=== PATIENT | male | born 1940 | race Caucasian/White ===

== ENCOUNTER 2022-02-16 11:26 | Outpatient (CLI) | payer MEDICARE, SELFPAY ==
[2022-02-16 11:43] VITALS: BP 113/58; PULSE 63; RESP 16; O2SAT 100
[2022-02-16] MEDS: TETRACAINE 0.5% OPHTH 1 DROP EYE-RIGHT ×3 (11:45→12:43)
[2022-02-16] MEDS: BRIMONIDINE TARTRATE 0.2% OPHTH 1 DROP EYE-RIGHT ×2 (11:46→12:54)
--- NOTE | 2022-02-16 15:19 | P.PCN_ITS ---
Procedure Note Will [facility] bill your pro fee for this procedure?: Yes Procedure: SURGEON: Suni Mejia MD PREOPERATIVE DIAGNOSIS: Posterior capsular opacity, right eye POSTOPERATIVE DIAGNOSIS: Posterior capsular opacity, right eye PROCEDURE: YAG laser capsulotomy, right eye ANESTHESIA: Topical. ESTIMATED BLOOD LOSS: None PATHOLOGY SPECIMEN: None COMPLICATIONS: None INDICATIONS: See consult note for details. The risks, benefits and alternatives of the procedure were explained to the patient, who elected to proceed and signed informed consent to do so. PROCEDURE: The patient was brought to the pre-holding area where the right eye was identified as the operative eye. I placed my initials above this eye. The patient received 2 sets of 1 drop of 0.5% tetracaine and 1 drop of 1% tropicamide. They also received 1 drop of 0.2% brimonidine. They received 1 drop of 0.5% tetracaine immediately prior to bringing them back for the procedure. The patient was then brought to the procedure room where the right eye was again identified as the operative eye. A YAG Chilo capsulotomy lens was placed on the eye. The laser was administered using a total number of [] shots with an energy of 2.4 mJ per shot for a total energy of 26 mJ. The patient tolerated the procedure well. DISPOSITION: The patient was taken back to the pre-holding area and given 1 drop of 0.2% brimonidine in the right eye. They were discharged to home in stable condition. The patient was instructed to call me or go to the emergency department with any sudden change, including dramatic loss of vision, severe pain in the eye or eyebrow region, nausea, or vomiting. The patient was instructed to use the 0.2% brimonidine 1 drop 2 times a day in the right eye for 1 week. The patient will follow up in the clinic in 1-2 weeks. Eleven
== END 2022-02-16 12:55 | disposition home or self-care (01) ==
PROVIDERS: PCP Family Medicine; Visit Provider Ophthalmology
DX: H26.9 Unspecified cataract (principal)
CPT/HCPCS: 66821; A9270

== ENCOUNTER 2022-03-31 19:24 | Emergency (ER) | payer MEDICARE, OTHER, SELFPAY ==
[2022-03-31 19:29] VITALS: BP 115/66; PULSE 99; RESP 18; TEMP 36.2; O2SAT 97; BMI 25.8
--- NOTE | 2022-03-31 19:56 | ED_ITS ---
HPI - General Adult General Chief complaint: Weakness Stated complaint: Weakness Time Seen by Provider: 03/31/22 19:31 History of Present Illness HPI narrative: This 81-year-old male comes in reporting generalized weakness today. He states that he drank a couple cans of Ensure last evening and this did not sit well with him. He had a vomiting episode last night and again this morning. He states that he does not vomit easily because he has achalasia. He states that he spent most today sitting in his recliner. He reports generalized weakness but states that he is able to get up and walk around. He denies having any fever or pain. He did not have any diarrhea. He is administering dialysis to himself at home. Related Data Home Medications Medication Instructions Recorded Confirmed allopurinol 100 mg tablet mg 03/31/22 calcitriol 0.25 mcg capsule mcg 03/31/22 docusate sodium 100 mg tablet mg PO 03/31/22 metoprolol tartrate 25 mg tablet mg 03/31/22 omeprazole 20 mg capsule,delayed mg 03/31/22 release torsemide 20 mg tablet mg 03/31/22 vitamin B complex-vitamin C 100 tab 03/31/22 mg-folic acid 1 mg tablet (Dialyvite) warfarin 2 mg tablet mg 03/31/22 Allergies Allergy/AdvReac Type Severity Reaction Status Date / Time No Known Drug Allergies Allergy Verified 03/31/22 19:36 Review of Systems Status of ROS: Reports: 10 or more systems reviewed and unremarkable except as noted in History and below Narrative: Constitutional: No fevers, no weight gain or loss. Eyes: No discharge. No vision changes. HENT: No congestion, no sore throat, no ear pain. Cardiovascular: No chest pain, no palpitations. Respiratory: No shortness of breath, no wheezes, no cough. Gastrointestinal: No abdominal pain. Vomiting as described above. Genitourinary: No dysuria, no hematuria. Musculoskeletal: Normal range of motion. Skin: No rashes, no pruritis. Neurological: No dizziness, sensory change, speech change. He reports generalized weakness. Endo/Heme/Allergies: No bruising or bleeding. No polydipsia. Pysch: no suicidality, no anxiety, no insomnia. All other systems reviewed and are negative. PFSH PFSH Social History Smoking Status: Former smoker What tobacco products do you use: cigarettes Smoking quit date/years: >15 years ago Do you use any of these nicotine containing products: None Second hand tobacco smoke exposure: No How often do you have a drink containing alcohol: never How often do you have six or more drinks on one occasion: Never AUDIT-C Alcohol total score: 0 Non-prescribed substance use: denies use Exam Narrative: Exam Narrative: Constitutional: Well-developed, well-nourished, no acute distress. HEENT: Normocephalic, atraumatic. Neck: Normal range of motion. Nontender. Supple. Heart: Regular. No murmurs. Normal rate. Intact distal pulses. Lungs: Clear to auscultation. No chest discomfort. No wheezes, rhonchi, or rales. Abdomen: Normal bowel sounds. Nontender. No rebound tenderness. Genitalia: Deferred. Back: No midline tenderness. Normal range of motion. Extremities: Normal range of motion. No injury. Skin: Intact. No rash. Warm. No erythema or pallor. Neurologic: No altered sensation. No weakness. Alert and oriented. Psychiatric: No suicidality. No anxiety or depression. No insomnia. Nursing notes and vitals signs are reviewed. Const: Vital Signs, click to edit/add: Vital Signs - 24 hr 03/31/22 19:29 Temperature 97.2 F L Pulse Rate [Pulse Oximeter] 99 Respiratory Rate 18 Blood Pressure [Le ft Upper Arm] 115/66 Pulse Oximetry 97 Oxygen Delivery Me thod Room Air Course Vital Signs Vital signs: Initial Vital Signs Temperature 97.2 F L 03/31/22 19:29 Temperature Source Temporal Artery Scan 03/31/22 19:29 Pulse Rate 99 03/31/22 19:29 Pulse Rhythm 03/31/22 19:29 Respiratory Rate 18 03/31/22 19:29 Blood Pressure 115/66 03/31/22 19:29 Blood Pressure Mean 82 03/31/22 19:29 Blood Pressure Position Sitting 03/31/22 19:29 Pulse Oximetry 97 03/31/22 19:29 Oxygen Delivery Method 03/31/22 19:29 Vital Signs Temperature 97.2 F L 03/31/22 19:29 Pulse Rate 99 03/31/22 19:29 Respiratory Rate 18 03/31/22 19:29 Blood Pressure 115/66 03/31/22 19:29 Pulse Oximetry 97 03/31/22 19:29 Oxygen Delivery Method 03/31/22 19:29 Temperature 97.2 F L 03/31/22 19:29 Pulse Rate 99 03/31/22 19:29 Respiratory Rate 18 03/31/22 19:29 Blood Pressure 115/66 03/31/22 19:29 Pulse Oximetry 97 03/31/22 19:29 Oxygen Delivery Method 03/31/22 19:29 Medical Decision Making MDM Narrative Medical decision making narrative: This patient comes in with some vomiting episodes and feeling generalized weakness. An IV was established where he received a L of normal saline intravenously. Lab results returned with rather reassuring findings. His potassium is slightly low at 3.2. His creatinine is rather good at 3.6 given that he is doing home dialysis. The patient is feeling better and okay to return home to continue current plans. Lab Data Labs: Lab Results 03/31/22 03/31/22 Range/Units 20:19 20:19 WBC 11.00 (4.50-11.00) K/uL RBC 4.14 L (4.30-5.90) m/uL Hgb 13.3 L (13.5-17.5) gm/dL Hct 39.4 (37.0-53.0) % MCV 95 (80-100) fL MCH 32 (26-34) pg MCHC 34 (32-36) gm/dL RDW Coeff of Cintia 14.4 (11.5-15.5) % Plt Count 156 (140-440) K/uL Neut % (Auto) 90.7 H (42.0-72.0) % Lymph % (Auto) 3.4 L (20-44) % [place] % (Auto) 5.1 (0.0-11.0) % Eos % (Auto) 0.6 (0.0-7.0) % Baso % (Auto) 0.1 (0.0-3.0) % Neut # (Auto) 10.00 H (1.7-7.0) K/uL Lymph # (Auto) 0.40 L (0.90-2.90) K/uL [place] # (Auto) 0.60 (0.00-0.90) K/UL Eos # (Auto) 0.07 (0.00-0.50) K/uL Baso # (Auto) 0.01 (0.00-0.30) K/uL Abs Immat Gran (auto) 0.01 (0.00-0.30) K/uL Sodium 138 (135-149) mmol/L Potassium 3.2 L (3.6-5.1) mmol/L Chloride 97 (96-114) mmol/L Carbon Dioxide 32 (20-32) mmol/L BUN 109 H (7-30) mg/dL Creatinine 3.6 H (0.5-1.5) mg/dL Estimated Creat Clear 15.83 Estimated GFR 16 ml/min Glucose 188 H (60-115) mg/dL Calcium 8.5 (8.4-10.6) mg/dL Discharge Plan Discharge Clinical Impression: Dehydration Patient Disposition: Home, Self-Care Condition: Stable Additional Instructions: Resume current plans. Follow up with MD or return if worsening symptoms happen. Prescriptions: No Action torsemide 20 mg tablet Label Comments: Take 1 tablet by mouth once a day allopurinol 100 mg tablet warfarin 2 mg tablet omeprazole 20 mg capsule,delayed release(DR/EC) calcitriol 0.25 mcg capsule Label Comments: TAKE 1 CAPSULE BY MOUTH THREE DAYS (TIMES) A WEEK docusate sodium 100 mg tablet PO Label Comments: Take 1 tablet by mouth twice a day as needed - for constipation metoprolol tartrate 25 mg tablet Dialyvite 100-1 mg tablet Label Comments: TAKE 1 TABLET BY MOUTH DAILY WITH DINNER Follow Up/Referrals: Kush Doran MD [Primary Care Provider] - Stand Alone Forms: [employer] Info Instructions
[2022-03-31] MEDS: 0.9 % SODIUM CHLORIDE 1000 ml 1,000 ML IV (20:00)
[2022-03-31 20:26] LABS: Basophils Absolute Auto 0.01 K/uL (0.00-0.30); Basophils Percent Auto 0.1 % (0.0-3.0); Eosinophils Absolute Auto 0.07 K/uL (0.00-0.50); Eosinophils Percent Auto 0.6 % (0.0-7.0); Hematocrit 39.4 % (37.0-53.0); Hemoglobin* 13.3 gm/dL (13.5-17.5); Immature Granulocytes Abs Auto 0.01 K/uL (0.00-0.30); Lymphocytes Percent Auto 3.4 % (20-44); Mean Corpuscular HGB Conc 34 gm/dL (32-36); Mean Corpuscular Hemoglobin 32 pg (26-34); Mean Corpuscular Volume 95 fL (80-100); Monocytes Percent Auto 5.1 % (0.0-11.0); Neutrophils Percent Auto 90.7 % (42.0-72.0); Platelet Count* 156 K/uL (140-440); RDW Coefficient of Variation % 14.4 % (11.5-15.5); Red Blood Count 4.14 m/uL (4.30-5.90)
--- OUTSIDE RECORDS SUMMARY | 2022-03-31 20:34 | XMS_ITS | Continuity of Care Document ---
:1940 Author Organization [facility] Care Team Providers Name Role Phone [facility] Unavailable Unavailable Social History Combined list of available smoking, tobacco, and other social history [facility]. Social History Type Response Date Comment Source This section is an empty social history section. [facility]
--- OUTSIDE RECORDS SUMMARY | 2022-03-31 20:34 | XMS_ITS ---
:1940 Author Organization [facility], NA DOCUMENT DISCLAIMER The information in the [facility] Continuity of Care Document represents a summary of certain health and medical information. It may not contain the complete medical history for the patient and should be independently verified. The represented time in the document is Eastern Time. PROBLEMS Problem Code Status Onset Date Anemia in chronic kidney disease D63.1 Active December 27, 2021 Pleural effusion in other conditions J91.8 Active December 13, 2021 classified elsewhere Iron deficiency anemia, unspecified D50.9 Active December 01, 2021 Moderate protein-calorie malnutrition E44.0 Active October 27, 2021 Encounter for immunization Z23 Active Aug Renal sclerosis, unspecified N26.9 Active J anuary 2021 End stage renal disease N18.6 Active y 2021 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 Active August Generalized anxiety disorder F41.1 Active J anuary 2021 Gastro-esophageal reflux disease with K21.00 Active September 13, 2021 esophagitis, without bleeding Gout, unspecified M10.9 Active September 13, 2021 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 Active September 13, 2021 origin Obstructive sleep apnea (adult) (pediatric) G47.33 Ac tive September 13, 2021 Acute and subacute endocarditis, unspecified I33.9 A ctive September 13, 2021 Paroxysmal atrial fibrillation I48.0 Active September 13, 2021 Essential (primary) hypertension I10 Active September 13, 2021 Polyp of colon K63.5 Active September 13 Thrombocytopenia, unspecified D69.6 Active September 13, 2021 ALLERGIES AND ADVERSE REACTIONS Substance Reaction Severity Status Tegretol Unknown Active SOCIAL HISTORY Tobacco Use Status Tobacco Type Unknown if ever consumed tobacco - Caregiver Characteristics No Information Available Characteristics of Home environment No Information Available MEDICATIONS Home Medications Medication Instructions Dosage Route Start Date End Date Statu s allopurinol 100 Take by mouth 1 tablet ORAL August Active mg once a day 2021 amoxicillin 500 Take by mouth 4 capsule ORAL August Active mg once a day as 2021 directed amoxicillin-pot Take by mouth 1 tablet ORAL December 13, Active clavulanate once a day 2021 500-125 mg calcitriol 0.25 Take by mouth 1 capsule ORAL August Active mcg three times a 2021 week Dialyvite 100-1 by mouth once a 1 tablet ORAL December 13, Active mg day 2021 docusate sodium Take by mouth 1 tablet ORAL March 23, Active 100 mg twice a day as 2021 needed gentamicin 0.1% Apply to skin TOPICAL December 13, Active once a day as 2021 directed metoprolol Take by mouth 1 ORAL December 13, A ctive tartrate 25 mg twice a day 2021 omeprazole 20 Take by mouth 1 capsule ORAL December 22, Active mg twice a day 2021 torsemide 20 mg Take by mouth 1 tablet ORAL December 22, Active once a day 2021 warfarin 2 mg Take by mouth ORAL August Active once a day as 2021 directed VITAL SIGNS Post-Treatment Vital Signs Vital Sign Value Date / Time Blood Pressure-sitting 116/79 mmHg March 31, 2022 1 2:00 AM Heart Rate 89 beats per minute March 31, 2022 12:0 0 AM Temperature 97.7 deg. F March 31, 2022 12:0 0 AM Weight Vital Sign Value Date / Time Estimated Dry Weight 77.5 kg March 30, 2022 11: 59 PM Post-Dialysis 77.19 kg March 31, 2022 12:0 0 AM Other Other Value Date / Time Height 172 cm September 14, 2021 12: 00 AM HEALTH CONCERNS Tuberculosis Testing TST Date Administered TST Date Read TST Result 09/14/2021 09/16/2021 Negative (<5) mm LAB RESULTS Hematology Result Type Result Value Relevant Reference Interpretation Date Range WBC (No Diff) 7.30 1000/mcL 4.8-10.8 thous/mcL - February Ferritin 61 ng/mL Males: 22 - 322 - March 02 2 ng/mL; Females: 10 - 291 ng/mL TIBC 284 mcg/dL 185-515 mcg/dL - March 02, 2022 UIBC (Calc) 206 mcg/dL 155-355 mcg/dL - March 02, 2022 Iron 78 mcg/dL Females: 30-160 - March 02 2 mcg/dL Males: 45-160 mcg/dL Transferrin Sat. 27 % 20-55% - March 02 (Calc) Monocytes 5.0 % 3.0-10.0% - March 02, 2022 Basophils 0.5 % 0.0-1.5% - March 02, 2022 Eosinophil 13.2 % 0.0-7.0% High March 02, 2022 JUAN ANTONIO 0.8 % 0.0-4.0% - March 02, 2022 MCH 31.9 pg 27 - 31 pg/cell High March 02 RDW 18.6 % No Reference range High March 02, 2022 provided MCHC 32.3 g/dL 30 - 36 g/dL - March 02, 2022 Lymphocytes 8.3 % 19.0-48.0% Low March 02, 2022 Neutrophils 72.2 % 40.0-75.0% - March 02, 2022 HGB 13.0 g/dL Males: 14.0 - 18.0 Low March 02, 2022 g/dL Females: 12.0 - 16.0 g/dL RBC 4.08 mill/mcL Males: 4.70 - 6.10 Low March 02, 2022 mill/mcL Females: 4.20 - 5.40 mill/mcL HCT 40.2 % Males: 42 - 52% Low March 02 Females: 37 - 47% Hemoglobin x 3 39.0 % Male: 14.0 - 18.0 Low March 02, 2022 g/dL; Female: 12.0-16.0 g/dL Transferrin Sat. 20 % 20-55% - March 30, 2022 (Calc) TIBC 296 mcg/dL 185-515 mcg/dL - March 30 UIBC (Calc) 238 mcg/dL 155-355 mcg/dL - March 30 Iron 58 mcg/dL Females: 30-160 - March 30, 022 mcg/dL Males: 45-160 mcg/dL Eosinophil 10.8 % 0.0-7.0% High March 30, 2022 Basophils 0.5 % 0.0-1.5% - March 30, 2022 Lymphocytes 8.8 % 19.0-48.0% Low March 30, 2022 Monocytes 6.9 % 3.0-10.0% - March 30, 2022 RDW 16.1 % No Reference range High March provided Neutrophils 71.1 % 40.0-75.0% - March 30, 2022 MCH 33.1 pg 27 - 31 pg/cell High March 30 MCHC 33.4 g/dL 30 - 36 g/dL - March 30, 2022 JUAN ANTONIO 1.8 % 0.0-4.0% - March 30, 2022 RBC 4.06 mill/mcL Males: 4.70 - 6.10 Low March 212021 mill/mcL Females: 4.20 - 5.40 mill/mcL HGB 13.4 g/dL Males: 14.0 - 18.0 Low March g/dL Females: 12.0 - 16.0 g/dL WBC (No Diff) 6.97 1000/mcL 4.8-10.8 thous/mcL - March 30, 2022 Hemoglobin x 3 40.2 % Male: 14.0 - 18.0 Low March 212021 g/dL; Female: 12.0-16.0 g/dL HCT 40.2 % Males: 42 - 52% Low March 30 Females: 37 - 47% Metabolic/Renal Result Type Result Value Relevant Reference Interpretation Date Range Creatinine 12.8 mL/min Creatinine Low March 02, 2022 Clearance, Urine Clearance, Normalized Male 94.0-122.0 mL/min Female 77.0-94.0 mL/min Urea Nitrogen, 509 mg/dL 12-20 g/24 hrs - March 02 Urine, Timed nPCR 0.92 g/kg/day No reference range - March 02, 2022 provided BUN/Creat Ratio 13.9 06-09 - March 02 Creatinine, Serum 4.38 mg/dL 0.6-1.3 mg/dL High March 02, 2022 BUN 61 mg/dL 6-19 mg/dl High March 02, 2022 Bicarbonate 32 mEq/L 22-29 mEq/L High March 02, 2022 Chloride 99 mEq/L 96-108 mEq/L - March 02, 2022 Potassium 4.0 mEq/L 3.5-5.1 mEq/L - March 02, 2022 Sodium 138 mEq/L 136-145 mEq/L - March 02, 2022 BUN 76 mg/dL 6-19 mg/dl High March 30, 2022 Bicarbonate 34 mEq/L 22-29 mEq/L High March 30, 2022 Chloride 100 mEq/L 96-108 mEq/L - March 30, 2022 Potassium 3.5 mEq/L 3.5-5.1 mEq/L - March 30 2 Sodium 138 mEq/L 136-145 mEq/L - March 30 2 BUN/Creat Ratio 21.1 -20 High March 30 022 Creatinine, Serum 3.60 mg/dL 0.6-1.3 mg/dL High March Bone/Mineral Result Type Result Value Relevant Reference Interpretation Date Range Ca x P Product 40 < 55 - March 02, 2022 Corrected Ca x P 42 < 55 - March 02 22 Product Alkaline Phosphatase 337 U/L Males: 40-129 U/L, High J sapphire 2021 > 15 yrs Females: 35 - 104 U/L, > 15 yrs Magnesium 1.9 mg/dL 1.6-2.6 mg/dL - March 02, 2022 Phosphorus 4.5 mg/dL 2.6-4.5 mg/dL - March 02, 2022 Calcium, Total 8.9 mg/dL 8.4-10.2 mg/dL - March 02 22 PTH-Intact, Plasma 263 pg/mL 16 to 80 pg/mL High February Corrected Ca x P 33 < 55 - March 30, 2022 Product Ca x P Product 31 < 55 - March 30 22 Phosphorus 3.6 mg/dL 2.6-4.5 mg/dL - March 30 2 Calcium, Total 8.5 mg/dL 8.4-10.2 mg/dL Low March 30, 2022 Liver/Nutrition Result Type Result Value Relevant Reference Interpretation Date Range Albumin (BCG) 3.4 g/dL 3.5-5.2 g/dL Low March 02, 2022 Albumin (BCG) 3.3 g/dL 3.5-5.2 g/dL Low March 30 2 Peritoneal Dialysis Testing Result Type Result Value Relevant Reference Interpretation Date Range Urea Clear, Total 78 L/wk No Reference range - March 02, 2022 Norm Wkly provided Urea Clearance, Urine 4.3 mL/min No Reference range Low March 02, 2022 provided Creat Clear, Urine 142.1 L/wk No Reference range - Feb Weekly provided Urea Clear, Urine 44 L/wk No Reference range - March 02, 2022 Norm Wkly provided Creat Clear, Urine 129 L/wk No Reference range - Feb Norm Wkly provided Urea Clear, Urine 4.0 mL/min No Reference range Low March 02, 2022 Norm provided Creatinine, Urine 118.6 mg/dL No Reference range - March 02, 2022 provided Total Urea Nitrogen, 3.8 g/24 hr No Reference range Low [facility] 2021 Urine provided Creatinine Clearance 163 L/wk No reference range - [facility] 2021 - Measured PD provided Creatinine Clear, PDF 1.9 mL/min No Reference range - March 02, 2022 Norm provided Urea Clearance, PD 3.4 mL/min No Reference range - Feb Fluid provided Creat Clear, PDF 21 L/wk No Reference range - March 02, 2022 Weekly provided Creatinine Clear, PDF 2.1 mL/min No Reference range - March 02, 2022 provided Creatinine, PD Fluid, 2.2 mg/dL No Reference range - March 02, 2022 24 Hr Uncorrected provided Urea Clear, PDF Norm 34 L/wk No Reference range - [facility] 2021 Wkly provided Urea Nitrogen, PDF 24 2983.1 mg/24 hr No Reference range - March 02, 2022 Hr provided Urea Clearance, PDF 3.1 mL/min No Reference range - 2021 Norm provided Creatinine, PDF Timed 2.1 mg/dL No Reference range - March 02, 2022 Cor provided Wkly Creat Cl (Resid 148 L/wk No Reference range - [email or web address] + Dial) provided Glucose, PDF Timed 717 mg/dL No Reference range - Feb provided PD Kt/V 24 Hr 47 mg/dL No Reference range - March 02, 2022 Dialysate Urea provided PNA 67 g/day No Reference range - March 02, 2022 provided Creatinine, PDF 24 Hr 133.3 mg/24 hr No Reference range - March 02, 2022 provided Total Creatinine, 0.9 g/24 hr No Reference range - March 02, 2022 Urine provided Kt/V, Residual 1.04 No Reference range - February provided Infectious Diseases Result Type Result Value Relevant Reference Interpretation Date Range Hep B Surface Ab > 1000 mIU/mL < 10 mIU/mL, Non- - 2021 (anti-HBs) Immune HCV Ab (anti-HCV) Nonreactive Non-Reactive - August Hep B core Ab Negative Negative - September 13 Total (anti-HBc) Hep B Surface Ag Negative Negative - December 01 022 (HBsAg) DIALYSIS PRESCRIPTION CCPD Data Element Value Order Date/Time March 30, 2022 Frequency 7X Week Treatment Days [facility] D[facility] [place] Estimated Dry Weight 77.5 kg Calcium Content in Bag (mEq/L) 2.5 meq/L Magnesium Content in Bag (mEq/L) 0.5 meq/L Dextrose Content in Bag % 1.5; 2.5; 4.25% Number of Cycler Exchanges 4 Fill Volume 1500 mL Total Cycler Therapy Volume 6000 mL Total Cycler Therapy Time 480 min Average Dwell Time 120 min Number of Daytime Exchanges 0 Dialysis Access Peritoneal Dialysis-PD Windy ter-Double Cuff Coiled, Right Upper Quadrant of Abdomen Access Placed on July 222020 TRANSPLANT WAITLIST STATUS No Information on Transplant Waitlist Status ADVANCE DIRECTIVES Directive Description Ordered By Effective Date Resuscitation status Full Code Sebastian Charles Sep 13 2 DIALYSIS TREATMENTS (CAPD/CCPD treatments include self-reported information entered by the patient and may not contain the complete representation of a treatment.) CCPD-[facility] Date Exchanges Fill Volume Exchange Dialysis Access Meds-ent ered by [facility] patient March 31 of 1 - Dextrose 1.5% Peritoneal Leigh lysis-PD Catheter-Double Cuff Coiled, Right Upper Quadrant of Abdomen - 2021 Access Placed on [facility] r 2020 Vitals Time Weight BP Heart Rate Temperature Blood Sugar March 31, 2022 77.19 kg 116/79 mmHg 89 beats per 97.7 deg. F - (AM) minute CCPD-[facility] Date Exchanges Fill Volume Exchange Dialysis Access Meds-ent ered by [facility] patient March 30 of 1 - Dextrose 1.5% Peritoneal Leigh lysis-PD Catheter-Double Cuff Coiled, Right Upper Quadrant of Abdomen - 2021 Access Placed on [facility] r 2020 Vitals Time Weight BP Heart Rate Temperature Blood Sugar March 30, 2022 78.0 kg 119/66 mmHg 58 beats per 97.7 deg. F - (AM) minute [facility]CPD[facility] Date Exchanges Fill Volume Exchange Dialysis Access Meds-ent ered by [facility] patient March 29 of 1 - Dextrose 1.5% Peritoneal Leigh lysis-PD Catheter-Double Cuff Coiled, Right Upper Quadrant of Abdomen - 2021 Access Placed on [facility]ce[facility] r 2020 Vitals Time Weight BP Heart Rate Temperature Blood Sugar March 29, 2022 77.73 kg 122/78 mmHg 79 beats per 97.8 deg. F - (AM) minute
--- OUTSIDE RECORDS SUMMARY | 2022-03-31 20:35 | XMS_ITS ---
:1940 Author Organization [facility] Address [address] [place] [address] Care Team Providers Name Role Phone Unavailable Primary Care Provider Unavailable Procedures Procedure Name Priority Date/Time Associated Comments Diagnosis CT CHEST WITHOUT RAD - Routine 03/02/2022 10:14 Pneumonitis Due To Results for this IV CONTRAST (most inpatients AM CDT Inhalation Of Food proce dure are in and all And Vomit (HCC) the results outpatients) section. from Last 3 Months Allergies Active Allergy Reactions Severity Noted Date Comments Carbamazepine Other (see comments) 02/14/2019 Other reaction(s): Adverse reaction Furosemide Other (see comments) 10/28/2020 Unknown , listed in Care Everywhere, als o noted on Torsemide. Other reaction( s): Reaction Unknown Levetiracetam Other (see comments) 09/11/2002 Phenytoin Other (see comments) 09/11/2002 Propafenone Other (see comments) 10/28/2020 Caused fluid around his heart per pt, in care everywhere. Other reaction( s): fluid around heart Water Hives 12/01/2021 Reports hives f rom city water, (additiv es?), only drinks bottle w ater. Medications Medication Sig Dispensed Refills Start Date End Date Status allopurinol Take 100 mg by 0 11/09/2018 Ac tive (ZYLOPRIM) 100 mg mouth daily. tablet calcitRIOL 1 capsule. 3 0 12/27/2018 Activ e (ROCALTROL) 0.25 times weekly mcg capsule warfarin 1 mg on 0 01/07/2019 Active (COUMADIN) 2 mg //Sun and 2 tablet mg on ///Sat. metoprolol Take 25 mg by 0 Activ e tartrate mouth 2 (two) (LOPRESSOR) 25 mg times a day. tablet multivitamin Take 1 tablet by 30 tablet 0 12/08/2021 Active renal failure mouth daily with (DIALYVITE) 100-1 dinner. mg tablet torsemide Take 1 tablet 0 12/12/2021 Activ e (DEMADEX) 20 mg (20 mg total) by tablet mouth daily. omeprazole Take 1 capsule 0 12/11/2021 Act lynsey (PriLOSEC) 20 mg (20 mg total) by DR capsule mouth 2 (two) times a day before breakfast and dinner. hydrALAZINE Take 1 tablet 0 12/08/2021 03/02/20 Dis continued (APRESOLINE) 10 (10 mg total) by 22 (Patient mg tablet mouth 3 (three) Taylor sfer) times a day. Hold medication isosorbide Take 0.5 tablets 0 12/08/2021 03/02/20 D iscontinued dinitrate (2.5 mg total) 22 (Lissette ent (ISORDIL) 5 mg by mouth 3 Taylor sfer) tablet (three) times a day before meals. gentamicin Apply 1 15 g 0 12/09/2021 03/02/20 Disconti nued (GARAMYCIN) 0.1 % application 22 (Patient cream topically daily. 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 Polyp Of Stomach And Duodenum 04/18/2011 Osteopenia 05/04/2010 Hyperparathyroidism Renal Secondary 04/08/2010 Anxiety Generalized Disorder 03/28/2007 Apnea Sleep Obstructive 07/29/2003 Seizure Partial 09/11/2002 Immunizations Name Administration Dates Next Due Influenza, Seasonal, Injectable 07/12/2002 Social History Tobacco Use Types Packs/Day Years Used Date Smoking Tobacco: Never Smokeless Tobacco: Never Alcohol Use Standard Drinks/Week Comments Not Currently 0 (1 standard drink = 0.6 oz pure alcoho l) Social Isolation Answer Date Recorded In a typical week, how many times do you Once a week 02/14/2019 talk on the phone with family, friends, or neighbors? How often do you get together with friends More than three t imes a week 02/14/2019 or relatives? How often do you attend restorationism or More than 4 times per year 02/14/2019 buddhist services? Do you belong to any clubs or No 02/14/2019 organizations such as restorationism groups, unions, fraternal or athletic groups, or school groups? How often do you attend meetings of the Never 02/14/2019 clubs or organizations you belong to? Are you now , , , 02/14/2019 , never or living with a partner? Physical Activity Answer Date Recorded On average, how many days per week do you engage in moderate to 7 days 02/14/2019 strenuous exercise (like walking fast, running, jogging, dancing, swimming, biking, or other activities that cause a light or heavy sweat)? On average, how many minutes do you engage in exercise at th is 60 min 02/14/2019 level? Financial Resource Strain Answer Date Recorded How hard is it for you to pay for the very basics like Not h jayce at all 02/14/2019 food, housing, medical care, and heating? Food Insecurity Answer Date Recorded Within the past 12 months, you worried that your food would Never true 02/14/2019 run out before you got money to buy more. Within the past 12 months, the food you bought just didn't N ever true 02/14/2019 last and you didn't have money to get more. Transportation Needs Answer Date Recorded In the past 12 months, has lack of transportation kept you N o 02/14/2019 from medical appointments or from getting medications? In the past 12 months, has lack of transportation kept you N ot asked from meetings, work, or getting things needed for daily living? Education Answer Date Recorded What is the highest level of school you have completed or 12 th grade 02/14/2019 the highest degree you have received? Sex Assigned at Date Recorded Not on file Last Filed Vital Signs Vital Sign Reading Time Taken Comments Blood Pressure 114/64 03/02/2022 11:16 AM CDT Pulse 63 03/02/2022 11:16 AM CDT Temperature 36.6 ??C (97.9 ??F) 03/02/2022 11:16 AM CDT Respiratory Rate 14 12/11/2021 12:12 PM CDT Oxygen Saturation 98% 03/02/2022 11:16 AM CDT Inhaled Oxygen Concentration - - Weight 78.5 kg (173 lb 1 oz) 03/02/2022 11:16 AM CDT Height 172.2 cm (5' 7.8) 03/02/2022 11:16 AM CDT Body Mass Index 26.47 03/02/2022 11:[address] Chest without IV Contrast (03/02/2022 10:14 AM CDT) Anatomical Region Laterality Modality Chest, Thoracic RST LOS, Thoracic ARZ N/A Co mputed Tomography, Computed LOS, Thoracic FLA LOS Tomography Specimen (Source) Anatomical Collection Method Collection Time Re ceived Time Location / / Volume Laterality 03/02/2022 10:32 AM CDT Impressions 03/02/2022 10:43 AM CDT Resolution of left upper lobe infiltrate . Multiple findings are otherwise stable. Narrative 03/02/2022 10:43 AM CDT EXAM: CT CHEST WITHOUT IV CONTRAST COMPARISON: 12/28/2021 FINDINGS: Interval resolution of prior new consoli dations in the left upper lobe. No new consolidations. Remainder of chest exam otherwise unchan ged. Small layering right pleural effusion wi th associated rounded atelectasis in the posterior right lower lobe. Stable peripheral pleural sc arring in the mid and lower right and left lung. Moderate size pericardial effusion. Additional findings: Dilated patulous fl uid-filled esophagus. Mild cardiomegaly with aortic, coronary artery and mitral annulus calci fication. Stable multiple upper limits of normal mediastinal nodes. Bilateral renal atrophy. Nonobstr ucting central renal stones. Persistent free intraperitoneal air likely due to peritoneal dialysis. Procedure Note Cj Roach M.D. - 03/02/2022Fo rmatting of this note might be different from the original. EXAM: CT CHEST WITHOUT IV CONTRAST COMPARISON: 12/28/2021 FINDINGS: Interval resolution of prior new consoli dations in the left upper lobe. No new consolidations. Remainder of chest exam otherwise unchan ged. Small layering right pleural effusion wi th associated rounded atelectasis in the posterior right lower lobe. Stable peripheral pleural sc arring in the mid and lower right and left lung. Moderate size pericardial effusion. Additional findings: Dilated patulous fl uid-filled esophagus. Mild cardiomegaly with aortic, coronary artery and mitral annulus calci fication. Stable multiple upper limits of normal mediastinal nodes. Bilateral renal atrophy. Nonobstr ucting central renal stones. Persistent free intraperitoneal air likely due to peritoneal dialysis. IMPRESSION: Resolution of left upper lobe infiltrate . Multiple findings are otherwise stable. Peng Tinajero M.D. IMG CT PROCEDURES from Last 3 Months
--- OUTSIDE RECORDS SUMMARY | 2022-03-31 20:35 | XMS_ITS | Clinical Summary ---
:1940 Author Organization [facility] Address [address] [place] [id number] Care Team Providers Name Role Phone Unavailable Primary Care Provider Unavailable Source Comments Patient records contain information from all sites at [facility]. For routine questions regarding patient records, call [phone] during business hours, M-F 8:00 AM - 5:00 PM Central Time. Record requests for emergency care only can be directed to [phone] at any time.[facility] Allergies Active Allergy Reactions Severity Noted Date [...] on 0 01/07/2019 Active (COUMADIN) 2 mg //Mon and 2 tablet mg on ///Mon. metoprolol Take 25 mg by 0 Activ [...] PD site Active Problems Problem Noted Date Jail (Current) Anticoagulant Treatment 12/09/2021 Hypertension And End [...] Apnea Sleep Obstructive 07/29/2003 Seizure Partial 09/11/2002 Resolved Problems Problem Noted Date Resolved Date Pneumonitis Due To Inhalation Of Food And Vomit 12/09/2021 12/09/2021 Syncope And Collapse 12/09/2021 12/09/2021 Hemoptysis 04/15/2019 12/09/2021 Acidosis 12/27/2018 12/09/2021 Thrombocytopenia 10/20/2016 12/09/2021 Encounters Date Type Specialty Care Team Description 03/03/2022 Clinical Pulmonary Medicine Jessa Heredia Relea se of Communication Trinh Mendes Information 03/02/2022 Hospital Encounter Pulmonary Medicine Jessa Heredia Effusion Pleural Trinh Mendes (Primary Dx) 03/02/2022 Hospital Encounter Radiology LiorPeng becerril, Pneumoni tis Due M.DBailey To Inhalation O f Food And Vomit ([facility]) 03/02/2022 Clinical Cardiovascular Project Management Professional, Triage Communication Disease Trinh Alcaraz 03/02/2022 Orders Only Pulmonary Medicine Jessa Heredia Effus ion Trinh Mendes Pericardial Acu te ([facility]) (Primary Dx) 01/26/2022 Refill Pulmonary Medicine Maria G Adame, Med Ref ill P.A.-C., M.S. from Last 3 Months Immunizations Name Administration Dates Next Due Influenza, Seasonal, Injectable 07/12/2002 Family History Medical History Relation Name Comments Dementia Mother Relation Name Status Comments Mother Social History Tobacco Use Types Packs/Day Years [...] or relatives? How often do you attend tenriism or More than 4 times per year 02/14/2019 sabianism services? Do you belong to any clubs or No 02/14/2019 organizations such as tenriism groups, unions, fraternal or athletic groups, or [...] Mass Index 26.47 03/02/2022 11:16 AM CDT Plan of Treatment Upcoming Encounters Date Type Specialty Care Team Description 04/04/2022 Appointment Laboratory Medicine Mehrdad Lazcano APRN, C.N.P. [address] [place] [address] 04/04/2022 Appointment Cardiovascular Disease Mehrdad Lazcano APRN, C.N.P. [address] [place] [address] 04/05/2022 Ancillary Procedure Cardiovascular Disease Kayla Heredia M.D. [address] [place] [phone] 04/05/2022 Appointment Cardiovascular Disease Jessa Heredia M.D. [address] [place] [phone] 04/12/2022 Clinical Communication Admitting/Central Scheduling 04/15/2022 Comprehensive Visit Cardiovascular Disease Kayla Heredia M.D. [address] [place] [phone] Health Maintenance Due Date Last Done Comments Depression Screening (Annual 08/21/2021 PHQ-2) COVID-19 Vaccine (4 - Booster for 09/17/2021 05/18/2021, , Pfizer series) 09/23/2020 Influenza Vaccine (#1) 2022 05/18/2021, 05/06/2020, 05/06/2020, Additional history exists Office Visit for Blood Pressure 12/09/2022 12/09/2021 Check / Re-check Creatinine Level 12/11/2022 12/11/2021, 12/10/2021, 12/09/2021, Additional history exists Potassium Level 12/11/2022 12/11/2021, 12/10/2021, 12/09/2021, Additional history exists Sodium Level 12/11/2022 12/11/2021, 12/10/2021, 12/09/2021, Additional history exists DTaP,Tdap,and Td Vaccines (2 - Td 07/10/2024 07/10/2014, or Tdap) Pneumococcal vaccine (65+ years) Completed 11/04/2014, Zoster Vaccines Completed 02/14/2019, 12/11/2018, 04/08/2010 Fall Risk Screen (Annual) Completed 12/10/2021 Medical Devices Implanted Type Area Barrel Coater Device Shelf Model / Identifier Expiration Date Ser ial / Lot [employer]omed-Screw Auto-Drive 1.6 X 4 - [id number] Hardware [employer] Implanted: Qty: 16 on 06/19/2002 pins/screws/r ods Description: Device Barrel Coater - [employer] Device Status Text - [id number]. Procedures Procedure Name Priority Date/Time Associated Comments Diagnosis CT CHEST WITHOUT RAD - Routine 03/02/2022 10:14 Pneumonitis Due To Results for this IV CONTRAST (most inpatients AM CDT Inhalation Of Food proce dure are in and all And Vomit (HCC) the results outpatients) section. from Last [address] Chest without IV Contrast (03/02/2022 [...] IMG CT PROCEDURES from Last 3 Months Insurance Payer Benefit Plan Subscriber ID Effective Phone Address Typ e / Group Dates [facility] [id number] 2018-Pres [phone] [address] PPO COMPLETE ent [id number] [place] [address] FOR LIFE FOR [id number] 2018-Pre [phone] [address] Indemnity LIFE sent [phone] [place] [address] Advance Directives For more information, please contact: [phone] Latest Code Status on File Code Status Date Activated Date Inactivated Comments Full Code 12/09/2021 5:10 PM 12/11/2021 2:46 PM Full Code: Discussed Full Code 2021 1:00 AM 12/08/2021 4:13 PM Full Code: Discussed
[2022-03-31 20:36] LABS: Slide Review Reflex No
--- OUTSIDE RECORDS SUMMARY | 2022-03-31 20:36 | XMS_ITS | Encounter Summary ---
:1940 Author Organization [facility] Address [address] [place] [address] Care Team Providers Name Role Phone Unavailable Primary Care Provider Unavailable Reason for Visit Auth/Cert Specialty Diagnoses / Procedures Referred By Contact Refer red To Contact Diagnoses Hematemesis Hematemesis on Coumadin Procedures DIR Referral ID Status Reason Start Date Expiration Date Visits Requ ested Visits Authorized [id number] 1 1 Encounter Details Date Type Department Care Team Description 12/09/2021 - Hospital Encounter [facility] Kong Coates M.D. [address] [place] [id number] Hematemesis 12/11/2021 [facility] [address] [place] [address] (Primary Dx) [facility], Fourth Floor [address] [place] [phone] Social History Tobacco Use Types Packs/Day Years [...] or relatives? How often do you attend baptist or More than 4 times per year 02/14/2019 mosque services? Do you belong to any clubs or No 02/14/2019 organizations such as baptist groups, unions, fraternal or athletic groups, or [...] Assigned at Date Recorded Not on file documented as of this encounter Last Filed Vital Signs Vital Sign Reading Time Taken Comments Blood Pressure 120/58 12/11/2021 12:12 PM CDT Pulse 72 12/11/2021 12:12 PM CDT Temperature 36.5 ??C (97.7 ??F) 12/11/2021 12:12 PM CDT Respiratory Rate 14 12/11/2021 12:12 PM CDT Oxygen Saturation 99% 12/11/2021 12:12 PM CDT Inhaled Oxygen Concentration - - Weight 74.9 kg (165 lb 2 oz) 12/09/2021 2:33 PM CDT Height 172.7 cm (5' 8) 12/09/2021 2:33 PM CDT Body Mass Index 25.11 12/09/2021 2:33 PM CDT documented in this encounter Discharge Summaries Vidhya Goldstein APRN, C.N.P., M.S.N. - 12/11/2021 11:33 AM CDT DISCHARGE SUMMARY Discharge Provider: Arti Lozoya M.D. No primary care provider on file. Discharge Provider Team: Hospital Internal Medicine ([facility]) T Medicine 8 ([facility]) Primary Care Provider Phone Number: None Primary Care Provider Fax Number: None Other Providers: Nargis Goldstein APRN, C.N.P., M.S.N. 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 - Severely dilated esophagus consistent with achalaisa. Superficial stasis ulceration with friability and oozing with irrgation. Likely source of bleeding with anticoagulation. - Normal stomach where visualized. - Normal duodenum and renu gland hyperplasia in bulb. - No specimens collected. Recommendation: - Follow an antireflux regimen with PO PPI 40 mg BID indefinitely and advise sleeping at inclination of 45 degree. Avoid meals or liquids 3-4 hours prior to sleep. - Recommend sucralfate 1 g QOD for 2 weeks. OUTPATIENT FOLLOW UP Scheduled Appointments 12/27/2021 11:00 AM RST INTAKE VISIT POD B 02 Admitting/Central Scheduling 12/28/2021 8:[address] [facility] Radiology 12/28/2021 1:30 PM Peng Tinajero M.D. Pulmonary Medicine For appointment details refer to your Patient Appointment Guide. TEST RESULTS PENDING AT DISCHARGE Pending Labs None DETAILS OF HOSPITAL STAY REASON FOR ADMISSION Hematemesis HOSPITAL COURSE Mr. 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 Is very active. He has a medical historysignificant for ESRD on nightly PD for the past 2 months, pAF on Warfarin (INR not yet therapeutic, 1 .5), significant achalasia/dysphagia and frequent aspiration pneumonia. He was recently discharged aday prior to this admission after 6 day hospitalization for right pleural empyema. His known achalasia has been refractory to multiple surgical repairs since 1968, incl last a Heller's procedure at [facility] [place] 11/2020. On 12/09, he presented via EMS to [facility] Emergency Department with concerns of weaknessand coffee ground emesis. Apparently EMS noted ice cream container worth of reddish vomit that they thought was blood. SBP was90s but improved to 120s with 1.5 L IVF. He was not transfused at the OSH ED as Hb was 12.2. He was given Kcentra (INR was 1.4) and 40 mg IV pantoprazole and directly admitted to [facility],Medicine 8 service for ongoing management. On the general floor, he remained hemodynamically stable and afebrile. His serial hemoglobins were stable. Had 1 episode of emesis of dark brown fluid. EGD showed: From 40 to 35 cm from the incisors, there was evidence of superficial stasis ulceration that would slough off and ooze blood with waterjetirrigation. Esophagogastric landmarks were identified: the site of hiatal narrowing was found at 42 cm from the incisors. Gastric contents easily refluxed into the esophagus. A large amount of brownishfluid with food particles and debris was found in the gastric fundus. This was lavaged and suctionedwith NO evidence or source of bleeding. During this hospitalization, Mr. Castro was able to meet with a dietitian to discuss the appropriate diet as well as techniques for improving flavor and texture of foods.They were given information aswell as brochures and her questions were answered. Mr. Castro was able to discuss his frustration with not being able to eat the foods that he likes and enjoys and not being able to be as socially active as he would like to be due to food constraintsand requirements. Surgical intervention such as a PEG tube was discussed. Mr. Castro stated that hehas had this conversation before with other providers. He was able to provide teach back that he needs to focus on blenderized foods and any nutrition that he can suck through a straw. It is strongly recommended that Mr. Castro follow-up with the GI/esophagus Clinic for ongoing management and recommendations. Appointment will be scheduled for Mr. Castro. It was also recommended by GI that he follow on anti-reflux regime with PPI/omeprazole 40 milligrams twice daily for an indefinite period. Also sucralfate was recommended 1 gram every other day for 2 weeks. As he had returned to his mental and physical baseline, plans were made for him to discharge home under the watchful eye of his family. On the day of dismissal,Mr Castro was tolerating an oral diet, had no pain, and he was at his functional baseline. He was hemodynamically stable and medically ready for discharge to home. Family was able to provide private transportation. MEDICATIONS CHANGED DURING THIS HOSPITAL STAY Medications stopped: Hydralazine Medications changed: Omeprazole Medications added: Sucralfate CONSULTS ORDERED DURING THIS ADMISSION IP CONSULT TO NEPHROLOGY IP CONSULT TO DIETITIAN CONDITION AT DISCHARGE Stable I saw and evaluated Mr. David Castro today and provided counseling [id number] at bedside. I personally spent over half of a total 35 minutes in counseling and discussion with the patient and in coordination of care as described above to facilitate the hospital discharge. Discharge instructions were provided to the patient and caregiver(s). documented in this encounter Discharge Instructions Discharge InstructionsBernice Pisano - 12/10/2021 7:26 AM CDT You were discharged from the [facility] Medicine 8 ([facility]) Service. Please identify this service name if you call with questions after hospitalization. AppointmentsBernice Pisano - 12/10/2021 11:04 AM CDT Take a copy of this after visit summary to your appointment(s). DIVINA Van December 14, 2021 - Monday --10:05 AM - Hospital Follow-Up with Dr. Harish Silver, at [facility] Address: [address] [place] [address] DIVINA Van [id number] If you have any questions, concerns, or need to reschedule please call [phone] documented in this encounter Medications at Time of Discharge Medication Sig Dispensed Refills Start Date End Date allopurinol (ZYLOPRIM) Take 100 mg by mouth 0 100 mg tablet daily. calcitRIOL (ROCALTROL) 1 capsule. 3 times 0 12/27 0.25 mcg capsule weekly metoprolol tartrate Take 25 mg by mouth 2 0 (LOPRESSOR) 25 mg (two) times a day. tablet multivitamin renal Take 1 tablet by mouth 30 tablet 0 12/08 failure (DIALYVITE) daily with dinner. 100-1 mg tablet omeprazole (PriLOSEC) Take 1 capsule (20 mg [address] capsule total) by mouth 2 (two) times a day before breakfast and dinner. torsemide (DEMADEX) 20 Take 1 tablet (20 mg 0 mg tablet total) by mouth daily. warfarin (COUMADIN) 2 1 mg on /Mon and 0 mg tablet 2 mg on ///Sat. amoxicillin-pot Take 1 tablet (500 mg 16 tablet 0 2 12/25/2021 clavulanate (AUGMENTIN) total) by mouth daily 500-125 mg per for 16 doses tabletIndications: Indications: Respiratory tract Respiratory tract infection, community infection, community acquired acquired. gentamicin (GARAMYCIN) Apply 1 application 15 g 0 /08/202103/02/2022 0.1 % cream topically daily. Apply to PD site hydrALAZINE Take 1 tablet (10 mg 0 12/08/2021 (APRESOLINE) 10 mg total) by mouth 3 tablet (three) times a day. Hold medication isosorbide dinitrate Take 0.5 tablets (2.5 0 11/2003/02/2022 (ISORDIL) 5 mg tablet mg total) by mouth 3 (three) times a day before meals. documented as of this encounter Progress Notes Liz Horvath RDN - 12/11/2021 11:37 AM CDT Clinical Nutrition: Education/Counseling DESCRIPTION Mr. Castro is being seen for diet education on a blended diet-used Types of Diets book and Nutritious and Flavorful Blended Meals. Discussed blending and thinning with liquids, how to get in adequate calories/protein, and discussed types of foods with he and . ASSESSMENT Patient receptive to diet education, all questions answered at this time. See education activity fordetails. PLAN If patient remains hospitalized, will provide nutrition assessment per departmental guidelines. For questions about patient's nutritional care please contact pager [phone] on weekdays or [phone] on weekends/holidays. Nicole Mendez APRN, C.N.P., D.N.P. - 12/11/2021 10:31 AM CDT NEPHROLOGY CONSULT SERVICE - PROGRESS NOTE Hospital Day 2 SUBJECTIVE I saw Mr. Castro in male hospital room today. His last peritoneal dialysis was on Monday. He wasdehydrated therefore, dialysis was held for 2 days. He tells me that he is anticipating dismissal today. He agreed to continue with peritoneal dialysis at home tonight according to his outpatient dialysis prescription. He has no nephrology related questions. I have reviewed the current medication list. OBJECTIVE Admission weight: 74.9 kg Weights for the past 120 hrs (Last 3 readings): Weight 12/09/21 1433 74.9 kg I/O 12/09 0000 12/09 2359 12/10 0000 12/10 0000 12/119 P.O. 180 450 300 Maintenance IV 1000 300 Total Intake(mL/kg) 1180 (15.8) 750 (10) 300 (4) Urine (mL/kg/hr) 200 800 (0.4) 350 (0.4) Emesis or Enteric Tube 100 Blood 1 Total Output 200 901 350 Net +980 -151 -50 VITAL SIGNS Vitals No data to display. PHYSICAL EXAM General appearance: alert and interactive, cooperative and no distress Lungs: normal respiratory effort Abdomen: benign, soft Extremities: no edema Peritoneal dialysis catheter, dry and intact no drainage or signs of infection. DIAGNOSTICS Results from last 7 days Lab Units 12/11/21 0730 12/10/21 1617 12/10/21 0733 HEMOGLOBIN g/dL 8.8* 10.7* 10.7* WBC x10(9)/L 12.3* -- 11.8* PLATELETS AUTO x10(9)/L 176 -- 189 Last 2 results Lab Units 12/11/21 0730 12/10/21 0733 SODIUM mmol/L 143 144 POTASSIUM mmol/L 3.5* 3.9 BICARBONATE S mmol/L 29 33* BUN mg/dL 52* 49* CREATININE mg/dL 3.84* 4.05* CALCIUM mg/dL 8.6* 8.5* PHOSPHORUS INORGANIC mg/dL 3.2 3.4 ASSESSMENT / PLAN #1 End-stage renal disease secondary to??nephrosclerosis, maintained on??peritoneal dialysis since??08/2021 #2 Admitted on??2021 for acute weakness, found to have complex empyema?? 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 Castro normally does peritoneal dialysis 7 nights per week.??He??is dialyzed with the followingprescription; CCPD for 8 hours, 4 exchanges, 1.5 L fill volume with 1.5% glucose Dianeal. ??He does not utilize a day dwell. Per his outpatient PD team, New Recommendations: -- Dialysis peritoneal dialysis next tonight at home according to his outpatient dialysis prescription if he is dismissed from the hospital. -- Discontinue sucralfate as this is not a recommendation due to his renal failure/dialysis to prevent risk of aluminium toxicity -- Nutrition consult/parenteral nutrition plan recommended, speaking with the primary hospital team it was my understanding that this has been discussed with him and he declined. Continued Recommendations: -- Peritoneal dialysis 7 times per week -- Obtain daily weights -- Document strict intake and output -- Avoid hypotension, maintain MAP>65 mmHg -- Avoid all nephrotoxins, if possible (contrast dye, unnecessary antibiotics, NSAIDs) -- Renally dose-adjust all medications for GFR -- Please obtain a renal function panel daily Mr. Castro's case has been staffed with Dr. Kennedy, Nephrology fitness consultant. For questions or concerns, please contact Neph A ESRD pager at [phone]. Sherri Alarcon R.R.T., L.R.T. - 12/11/2021 1:41 AM CDT Pt assisted with home CPAP set-up. Pt declined nasal liquicell. States that he is independent with placement and does not require assistance. He knows that RT is a page away if he needs any help. Electronically signed by: Sherri Alarcon R.R.T., L.R.TBailey 12/11/21 2:09 AM CDT Arti Lozoya M.D. - 12/10/2021 1:31 PM CDT I saw and evaluated Mr. David Castro on rounds today with our medicine team, and I agree with the findings and plan as documented in today's progress note by Maria G Adame PA-C, with the following comments: David Castro is a 81 y.o. male who was recently discharged from our [address] service following an admission for a pleural effusion consistent with an empyema that was attributed to chronic/recurrent aspiration pneumonitis and recurrent pneumonias from GI reflux aspiration in setting of advanced achalasia. We spent some time in his prior hospitalization discussion management options with GI as well as dietary modifications (which he dislikes). He was readmitted for coffee-ground appearing emesis yesterday. Today he feels his stomach is so full, and he needs his stomach pumped again. He had a 100 ml dark/black appearing emesis today. Of note, he also reported that he ate shrimp and liver following his recent hospital discharge. Differential diagnosis includes most likely retained food contents in the esophagus which may or maynot be complicated by esophagitis and/or trauma from what he describes as recurrent tube insertions to relieve obstructions in the upper GI tract. Dietary noncompliance is certainly a factor in his disease, although it remains unclear whether dietary restrictions alone are sufficient to manage his symptoms (given that he notes even liquids can build up in his esophagus). It is unclear whether additional procedural options (eg. Botox, dilations, repeat myotomy, etc) are feasible or in his interest. What Matters Most to Mr. Castro: walking many miles each day and feeling like a normal person Mentation: no known cognitive impairments, CAM negative for delirium, no formal screening for chronic cognitive impairment administered Mobility: robust at baseline, currently feels generalized weakness Medications/Medical Issues: as above PLAN: ?? EGD today ?? Liaise with GI regarding next steps in management of achalasia ?? Continue monitoring hemoglobin (appears stable compared to recent hospitalization despite reported large volume of coffee-ground/black emesis, raising question of whether some of the appearance of the emesis is related to retained food following his ingestion of animal liver) Please refer to Ms. Adame's note dated today for additional details about our team's plan of care. Counseling was provided [id number] at bedside regarding the plan of care as stated above. I personally spent over half of a total 35 minutes in counseling and coordination of care as documented above. Kasia Ridley, Pharm.D., R.Ph. - 12/10/2021 9:03 AM CDT Pharmacist Progress Note Reason for admission: multiple coffee ground emesis, transferred from OSH ED PMH: ESRD on peritoneal dialysis, achalasia, afib (warfairn), HTN, GERD, ELENI Last [facility]: [facility]02-12/[facility] OB[facility] Home medications: ?? Held: warfarin, PRN amoxicillin, torsemide (on hold per dc summary from 12/08) ?? DVT Prophylaxis: held for bleeding, SCDs ASSESSMENT / PLAN 1. GI, concern for bleed: EGD, PPI IV daily 2. ESRD-peritoneal dialysis: neph consulted, continues on Dialyvite, calcitriol 3. HTN/CV: continues home: hydralazine, isordil, metoprolol 4. Empyema: continues augmentin course 500mg/125mg every 24h (renally adjusted) thru 12/25 per discharge plan from 12/08 5. AFib- warfarin, last INR 1.4 (12/08AM), Kcentra given at OSH prior to transfer per ATC note 6. Home medication reconciliation: consider resuming gentamicin cream-uses daily for PD site Changes to medications anticipated at discharge: pending hospital course Kasia Ridley PharmCodie, R.Ph. [phone] Maria G Adame P.A.-C., M.S. - 12/10/2021 7:10 AM CDT [facility] Medicine 8 ([facility]) Progress Note SUBJECTIVE Interval history: Patient was seen on morning rounds. Overnight he had no acute events. He was able to endorse history documented in the H&P. Currently his main complaint is that he is nauseous. Noabdominal pain, shortness of breath or chest pain, no fevers or chills. He had loose stools without melena or hematochezia. Patient was re-evaluated later in the morning as he had 1 bout of dark colored emesis. He felt better afterwards, and did not have any vital sign changes. was at bedside to contribute to history. Review of symptoms positive for what is listed in HPI, otherwise negative. I have reviewed the current medication list. OBJECTIVE VITAL SIGNS Temperature: [36.5 ??C-37.2 ??C] 36.6 ??C Heart Rate: [92-106] 96 Resp Rate: [14-19] 18 Blood Pressure: (91-130)/(46-84) 125/61 SpO2: [97 %-99 %] 97 % Height: [172.7 cm] 172.7 cm Weight: [74.9 kg] 74.9 kg BSA (Calculated - sq m): [1.89 sq meters] 1.89 sq meters BMI (Calculated): [25.1 kg/m??] 25.1 kg/m?? Pulse Rate: [54-111] 92 PHYSICAL EXAM General: No acute distress. Mental: Awake, alert and oriented x3. Responds appropriately to questions. Eyes: PERRLA, EOM intact ENT: Oral mucosa pink and moist. Oropharynx clear. Cardiovascular: Regular rhythm and rate; no gallops, murmurs, clicks, or rubs. Lungs: Respirations even and non-labored on room air. Gurgly crackles heard on right lower lobe. Chest tube on Right side. Abdomen: Soft, nontender, nondistended, and no guarding. Extremities: Full ROM in upper and lower extremities bilat Skin: Warm and dry, well perfused. No new rashes or lesions noted. Neuro: No focal deficits DIAGNOSTICS I have independently reviewed labs, imaging and outside records. ASSESSMENT / PLAN Mr. Castro is hospitalized on [place] [id number] ([facility]) for evaluation and management of Hematemesis. 81 year old male admitted for weakness and coffee-ground emesis. Recently discharged [facility] after 6day admission for right pleural empyema. Medical comorbidities include ESRD on nightly PD for the past 2 months, pAF on Warfarin (INR not yet therapeutic, 1.5), significant achalasia/dysphagia and frequent aspiration pneumonia events in the past possibly in the setting of non-adherence to avoiding 'soft' diet (this has been refractory to multiple surgical repairs since 1968, incl last a Heller's procedure at [facility] [place] 11/2020), HTN, and ELENI on CPAP. EMS was called and he was taken to [facility] ED. Apparently EMS noted ice cream container worth of reddish vomit that they thought was blood. SBP was 90s but improved to 120s with 1.5 L IVF. He was not transfused at the OSH ED as Hb was 12.2. He was given Kcentra (INR was 1.4) and 40 mg IV pantoprazole and directly admitted to [facility] 8. 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 He has not had any melena. Etiology may be related to liver/other food that was regurgitated or lodged in his esophagus. However he does have risk factors for peptic ulcer disease and/or esophagitis. -EGD today -IV PPI, anticipate transition back to orals -continue to monitor stool and emesis -repeat hemoglobin this p.m. -follow up in Esophagus clinic -re-iterate importance of soft/stent diet -consider consult to GIH #2 Chronic Failure Renal End Stage Renal Disease Dialysis Dependent (HCC) #3 Dialysis Peritoneal Status (HCC) #4 Anemia of chronic disease #5 Hypertension Essential Primary #6 History of prior systolic HF, now with improved EF (EF 63% no WMA in 04/2021) Recently started on peritoneal dialysis in August 2021 due to CKD stage 5 with mild uremia and hypervolemia. Currently, BUN and Cr are stbale. Blood pressures have been slightly lower. Likely weaknessmultifactorial and related to dialysis, anti-hypertensive medications, and emesis as above. -consult to nephrology for comanagement of dialysis needs -continue isosoribide to 2.5mg TID -continue home metoprolol -continue to hold home torsemide and hydralazine from last admission -no renal diet or fluid restriction-drink to thirst -no need for skilled therapy #7 Recurrent right pleural effusion #12 History of prior systolic HF, now with improved EF (EF 63% no WMA in 04/2021) Suspicion for esophageal leak ruled out with esophogram on 12/06. Culture- negative empyema also remains a possibility. Low suspicion for HF exacerbation. Less likely peritoneal leak given low glucose inpleural fluid. -continue Augmentin as prescribed -follow up with pleural clinic and repeat CT in 3 weeks #13 Elevated Alkaline Phosphatase Has been elevated as high as 300's in the past, with subsequent downtrend. The remainder of his hepatic function is stable. Likely related to renal disease. -RUQ ultrasound unremarkable during last admission #14 Atrial Fibrillation Paroxysmal (HCC) INR subtherapeutic at 1.5. Chadsvasc 3. S/p Kcentra on 12/09 for an INR of 1.5. -Warfarin per pharmacy protocol #15 Apnea Sleep Obstructive -CPAP #16 Enlarged paraesophageal lymph node on CT imaging -Follow-up imaging may be helpful to ensure resolution Diet: No diet orders on file Tubes/lines: PIV VTE prophylaxis: therapeutic anticoagulation Current Activity/Mobility: BMAT Level 4 (Able to stand and walk; needs staff assist if fall risk factors identified) Fall Injury Prevention: I have discussed My Plan for Safe Activity with the patient. Disposition: Home Stable to discharge criteria (not yet met): Labs and Functional status The above plan of care was discussed with Dr. Lozoya, HIM fitness consultant. Counseling was provided [id number] at bedside regarding the plan of care as stated above. I personally spent over half of a total 35 minutes in counseling and coordination of care as documented above. Maria G Adame P.A.-C., M.S. Medicine [phone] Addendum: EGD showed stasis ulcer, and brownish fluid that was mostly food debris, no evidence of bleed identified. Discharge with recommendations to continue oral PPI BID indefinitely, sucralfate BID times 14 days, head of bed at 45 degrees. Surya [employer] - 12/09/2021 11:32 PM CDT Patient refusing hospital CPAP and states he will bring in his home CPAP tomorrow. Juan Pablo Giron Pharm.D., R.Ph. - 12/09/2021 2:28 PM CDT Images from the original note were not included. Admission Medication History Note Adherence issues: Unable to assess Medication list source: 12/08 discharge AVS Prior to Admission Medications Med List Status: Pharmacy Complete Set By: Juan Pablo Giron Pharm.D., R.Ph. at 12/09/2021 2:27 PM Status Comment 12/09/2021 2:28 PM Per 12/08 [facility] discharge AVS Taking? Last Dose Informant Start Date End Date LT allopurinol (ZYLOPRIM) 100 mg tablet 11/09/18 -- Take 100 mg by mouth daily. amoxicillin (AMOXIL) 500 mg capsule 01/15/19 -- Take 4 capsules by mouth. Prior to dental work amoxicillin-pot clavulanate (AUGMENTIN) 500-125 mg per tablet 12/09/21 12/25/21 Take 1 tablet (500 mg total) by mouth daily for 16 doses Indications: Respiratory tract infection, community acquired. calcitRIOL (ROCALTROL) 0.25 mcg capsule 12/27/18 -- 1 capsule. 3 times weekly gentamicin (GARAMYCIN) 0.1 % cream 12/09/21 -- Apply 1 application topically daily. Apply to PD site hydrALAZINE (APRESOLINE) 10 mg tablet 12/08/21 -- Take 1 tablet (10 mg total) by mouth 3 (three) times a day. Hold medication isosorbide dinitrate (ISORDIL) 5 mg tablet 12/08/21 -- Take 0.5 tablets (2.5 mg total) by mouth 3 (three) times a day before meals. metoprolol tartrate (LOPRESSOR) 25 mg tablet -- -- Take 25 mg by mouth 2 (two) times a day. multivitamin renal failure (DIALYVITE) 100-1 mg tablet 12/08/21 -- Take 1 tablet by mouth daily with dinner. omeprazole (PriLOSEC) [address] capsule 12/07/18 -- Take 20 mg by mouth daily. torsemide (DEMADEX) 20 mg tablet 12/08/21 -- Take 2 tablets (40 mg total) by mouth daily. *HOLD until evaluated by your Peritoneal Dialysis Team* warfarin (COUMADIN) 2 mg tablet 01/07/19 -- 1 mg on //Mon and 2 mg on ///Mon. Matthew Giron PharmCodie, R.Ph. documented in this encounter H&P Notes Lorne Galloway M.B., Ch.B. - 12/09/2021 7:19 PM CDT [facility] Medicine 8 ([facility]) Admission Note SUBJECTIVE CHIEF COMPLAINT Coffee ground emesis x6 last night HISTORY OF PRESENT ILLNESS Mr. David Castro is a 81 y.o. male who was dismissed from [facility] only yesterday having been admitted for 6 days with right pleural empyema. He was supposed to take 16 days of (renally-dosed) daily augmentin for the empyema but due to being taken in, he has not yet started the course. He lives with his and has ESRD on nightly PD for the past 2 months, pAF on Warfarin (INR not yet therapeutic, 1.5), significant achalasia/dysphagia and frequent aspiration pneumonia events in the past possibly in the setting of non-adherence to avoiding 'soft' diet (this has been refractory to multiple surgical repairs since 1968, incl last a Heller's procedure at [facility] [place] 11/2020), HTN, and ELENI on CPAP. He had dinner cooked liver and popcorn shrimp around 4pm yesterday (at the time that he is advised to dine). He put on his CPAP and slept in his recliner around 10 pm. Around 10.45 pm he woke with nausea and quickly vomited 'dark red' liquid that everyone has told him is coffee ground. He had no abdominal pain or fever and was able to go back to lying down though not fully asleep as the nausea never went away completely even after vomiting. About 90 mins later, the cycle repeated with worsening nausea followed by dark red emesis and he had a total of some 6 vomiting cycles though the night. The last was around 7 am and since then, only the nausea has continued. He denies it being all black emesis or bright red and he also had no melena or BRBPR. He has a daily loose BM (as he passed again later this morning actually in the ambulance) that he struggles to control but that has been the same every day since Monday this week. He has no pain or other change in his sx with defecation. This morning, he found it hard to stand. He felt weak and lightheaded and needed support from his to avoid falling down, but he did not pass out. Due to this they called EMS and he was taken to [facility] ED. Apparently EMS did take note of an ice cream container worth of reddish vomit that they thought was undoubtedly blood. SBP was 90s but improved to 120s with 1.5 L IVF. He was not transfused at the [facility] ED as Hb was 12.2. He was given Kcentra (INR was 1.4) and 40 mg IV pantoprazole. His ate the same food and did not have any n/v/d/abd pain to speak of. He has not travelled anywhere and no known hx of COVID or sick contacts. He denies NSAID use now. He seems to recall 2 prior upper GI bleeds, the first he thinks was at [facility] perhaps 15 years ago and then again here some 3years ago. He says aside from his esophageal dysmotility, only the event 15 years ago found a bleeding source, he thinks a gastric ulcer. 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 PMH: -Brain abscess apparently excised here in 2001 but it is not in the electronic chart. No extra-BIOLOGY TEACHER infectious source was found and he has had no further BIOLOGY TEACHER infection. -?LP done apparently here for low lymphocyte count. Again, I see no record in the EMR but he says there were no findings of concern. I have reviewed and updated the following: Past Medical History, Family History, Social History, andAllergies. Current Outpatient Medications on File Prior to Encounter: ??? allopurinol (ZYLOPRIM) 100 mg tablet, Take 100 mg by mouth daily. ??? amoxicillin (AMOXIL) 500 mg capsule, Take 4 capsules by mouth. Prior to dental work ??? amoxicillin-pot clavulanate (AUGMENTIN) 500-125 mg per tablet, Take 1 tablet (500 mg total) by mouth daily for 16 doses Indications: Respiratory tract infection, community acquired. ??? calcitRIOL (ROCALTROL) 0.25 mcg capsule, 1 capsule. 3 times weekly ??? gentamicin (GARAMYCIN) 0.1 % cream, Apply 1 application topically daily. Apply to PD site ??? hydrALAZINE (APRESOLINE) 10 mg tablet, Take 1 tablet (10 mg total) by mouth 3 (three) times a day. Hold medication ??? isosorbide dinitrate (ISORDIL) 5 mg tablet, Take 0.5 tablets (2.5 mg total) by mouth 3 (three) times a day before meals. ??? metoprolol tartrate (LOPRESSOR) 25 mg tablet, Take 25 mg by mouth 2 (two) times a day. ??? multivitamin renal failure (DIALYVITE) 100-1 mg tablet, Take 1 tablet by mouth daily with dinner. ??? omeprazole (PriLOSEC) [address] capsule, Take 20 mg by mouth daily. ??? torsemide (DEMADEX) 20 mg tablet, Take 2 tablets (40 mg total) by mouth daily. *HOLD until evaluated by your Peritoneal Dialysis Team* ??? warfarin (COUMADIN) 2 mg tablet, 1 mg on //Mon and 2 mg on ///Mon. REVIEW OF SYSTEMS A comprehensive review of systems was negative. OBJECTIVE VITAL SIGNS Temperature: [36.7 ??C-36.8 ??C] 36.8 ??C Heart Rate: [92-95] 92 Resp Rate: [15-18] 17 Blood Pressure: (91-130)/(46-84) 111/66 SpO2: [97 %-99 %] 99 % Height: [172.7 cm] 172.7 cm Weight: [74.9 kg] 74.9 kg BSA (Calculated - sq m): [1.89 sq meters] 1.89 sq meters BMI (Calculated): [25.1 kg/m??] 25.1 kg/m?? Pulse Rate: [54-111] 88 PHYSICAL EXAM Constitutional: He appears well-developed and well-nourished. No distress. Some coffee ground residue on gums. Cardiovascular: s1 s2. No M. He exhibits no edema. Pulmonary/Chest: clear No respiratory distress. Abdominal: PD catheter in situ, insertion is clean. Moderate distension. Soft. No mass or area of tenderness. BS+. DIAN deferred. Neurological: He is alert and oriented to person, place, and time. Skin: No rash noted. He is not diaphoretic. DIAGNOSTICS (12/09) 9 > 11.5 < 197 mcv 98 135 102 39 < 118 3.4 31 3.98 (PD) (12/08) INR 1.5 Alb 3.0 L PTH 100 ECG- Old atrial tach and LBBB. QTcB 481 ms. ASSESSMENT / PLAN Principal Problem: Hematemesis Active Problems: Apnea Sleep Obstructive Empyema Pleural (HCC) Achalasia Dialysis Peritoneal Status (HCC) Atrial Fibrillation Paroxysmal (HCC) Elevated Alkaline Phosphatase Anemia In Chronic Kidney Disease Retirement (Current) Anticoagulant Treatment Hypertension And End Stage Renal Disease (HCC) Anxiety Generalized Disorder Lymphopenia Hypoalbuminemia Bundle Branch Block Left Resolved Problems: Pneumonitis Due To Inhalation Of Food And Vomit (HCC) -T/S+ and maintain 2 large IV. He verbally consents to blood products. -Follow CBC and BMP daily. Increase frequency if he becomes unstable. -IV PPI q24 for now. -Hold warfarin for AF pending EGD/progress. Consider bridging during restart after. -Continue augmentin daily for empyema as planned, and his other home meds allopurinol, calcitriol, and MVI. -Will also continue home doses of hydralazine, ISDN, and metoprolol, but have caution in case he becomes HD unstable. -Neph consult for PD while here. -CPAP ordered+. Diet: Adult Diet Regular; 2,000 mg Na; 90 mEq K; Renal (Dialysis) Sometimes he finds he can only swallow soup. -NPO at MI in case of EGD in am. Tubes/lines: PIV x2 ordered. VTE prophylaxis: SCD only given bleeding. Code status: Full Code, discussed. Baseline Mobility: BMAT Level 4 (Able to stand and walk) Disposition: Home Counseling was provided [id number] at bedside regarding the plan of care as stated above. I personally spent over half of a total 70 minutes in counseling and coordination of care as documented above. documented in this encounter Consult Notes Shanon Turner, DWIGHT, C.N.P. - 12/10/2021 7:23 AM CDTAssociated Order(s): IP CONSULT TO NEPHROLOGY SUBJECTIVE Nephrology consult (hospital) Referring Provider: Lorne Galloway M.B., Ch.B. Reason for Consult: on PD CHIEF COMPLAINT Management of hemodialysis while hospitalized for Hematemesis [K92.0]. HISTORY OF PRESENT ILLNESS Mr. Castro is a 81 y.o. male who has a history of end stage renal disease related to nephrosclerosis, and has required dialysis since August 2021. He has been admitted for coffee ground emesis x6. Mr. Castro normally does peritoneal dialysis 7 nights per week. He is dialyzed with the following prescription; CCPD for 8 hours, 4 exchanges, 1.5 L fill volume with 1.5% glucose Dianeal. He does not utilize a day dwell. Per his outpatient PD team, he does not require large amounts of UF in the setting of his somewhat limited PO intake related to his esophageal motility disorder and dysphagia. Mr. Castro is seen in his room. He reports he has not been having any oral intake for about 2 days.He denies shortness of breath, chest pain, abdominal pain of constipation. He feels dry and dehydrated. He reports tolerating dialysis well. He has made about 1 L of urine in the last 24 hours. I have reviewed and updated the following: allergies and current medications REVIEW OF SYSTEMS Pertinent items are noted in HPI; all other review of systems was negative. OBJECTIVE Admission Weight: 74.9 kg Current Weight: 74.9 kg VITAL SIGNS Temperature: [36.5 ??C-37.2 ??C] 36.6 ??C Heart Rate: [92-106] 96 Resp Rate: [14-19] 18 Blood Pressure: (91-130)/(46-84) 125/61 SpO2: [97 %-99 %] 97 % Pulse Rate: [54-111] 92 Intake/Output Summary (Last 24 hours) at 12/10/2021 0723 Last data filed at 12/10/2021 0552 Gross per 24 hour Intake 1180 ml Output 700 ml Net 480 ml PHYSICAL EXAM General appearance: alert and no distress Lungs: Diminished in bilateral posterior lung ramirez Heart: Regular rate and rhythm Extremities: No pitting edema in bilateral lower extremities Vessels: Peritoneal dialysis is covered by gauze. Gauze is clean and dry. Nontender upon palpation. 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 This would indicate that there is no acute infection withhepatitis B virus. He will require ongoing monthly monitoring of surface antigen per dialysis unit guidelines ?? Mr. Castro's last peritoneal dialysis was two evening ago. He did not receive his peritoneal dialysis last evening because nephrology team felt he was dehydrated with elevated bicarbonate level. His bicarbonate level has further elevated to 33 mmol/L today from 31 mmol/L yesterday. His most recent weight was 74.9 kg yesterday. His weight was 78.0 kg when he was dismissed recently. Addendum: Most recent blood pressure was 119/52. Pulse 84 bpm. ?? We will hold his peritoneal dialysis this evening. We plan to change his dressing covering his peritoneal dialysis catheter exit site and apply 0.1% gentamicin cream to his exit site today. He has been on CCPD; 8 hours; 4 exchanges; 1.5 L fill volume; 1.5% glucose;with no day dwell per hisusual outpatient prescription. He continues to have residual renal function and continues on Torsemide 40 mg PO daily. New recommendations: -- Hold his peritoneal dialysis this evening. Will likely resume his peritoneal dialysis tomorrow evening if he is doing the hospital. -- Please hold his oral hydralazine 10 mg 3 times a day -- Resume his torsemide 20 mg daily his tomorrow morning -- Change his dressing covering peritoneal exit site and apply 0.1 % gentamicin cream to his exit site today. This will be done by dialysis nursing today. ? Recommendations: -- Peritoneal dialysis x7 nights per week -- Dose medications for patients that have ESRD, on peritoneal dialysis -- Renal dialysis diet to include restrictions of: 90 mEq Na, 100 g protein, 60 mEq K+, 80-100 mg phosphorus. -- 1.5 L per day fluid restriction -- Dialyvite one tablet each evening -- Daily weights, standing if possible -- Strict I&O monitoring -- Gentamicin??0.1 %??cream to be applied to PD catheter site daily. Please have??nursing staff clean PD catheter site with soap and water??daily prior to applying??gentamicin cream to site??and cover with gauze dressing. -- Please review potassium supplementation with nephrology in the setting of ESRD. I note that he received 40 mEq of potassium chloride this morning -- Continue calcitriol 0.25 mcg p.o. 3 times per week-- please adjust dosing as it is currently ordered as TID three times weekly -- Continues on isosorbide dinitrate 5 mg p.o. t.i.d., metoprolol tartrate 25 mg p.o. b.i.d. and torsemide 20 mg p.o. daily ?? Disposition: -- Please keep Nephrology informed regarding 's disposition as it becomes known so that wecan ensure that their outpatient dialysis needs have been arranged appropriately. ?? Thank you for the opportunity to participate in 's care. Plan of care was reviewed with Dr. Kennedy, Nephrology A fitness consultant For questions or concerns, please page the Nephrology A INSIDE ACCOUNT REPRESENTATIVE/PA pager ([phone]). Associated attestation - Yamileth Kennedy M.D., Ph.D. - 12/10/2021 6:16 PM CDT I was the supervising physician in the delivery of the service. I reviewed the plan of care with . We will hold peritoneal dialysis tonight due to his contraction alkalemia and ongoing vomiting.He is having an EGD today. I was unable to see the patient. documented in this encounter Nursing Notes Janeth Nicole, R.N. - 12/11/2021 12:09 PM CDT Shift Goals: Clinical Goals for the Shift: pt will remain stable for d/c Identify possible barriers to meeting goals/advancing plan of care: none End of Shift Summary: Patient discharged to home/self care with providing transportation. Education on diet recommendations provided by channel marketing manager. VSS. Belongings sent with patient. Problem: PAIN - ADULT Goal: PT VERBALIZES/DEMONSTRATES ADEQUATE COMFORT LEVEL OR BASELINE Outcome: Adequate for Discharge Problem: KNOWLEDGE DEFICIT Goal: Patient/family/caregiver demonstrates understanding of disease process, treatment plan, medications, and discharge instructions Outcome: Adequate for Discharge Problem: INFECTION - ADULT Goal: Absence of infection during hospitalization Outcome: Adequate for Discharge Problem: SKIN/TISSUE INTEGRITY Goal: Skin/Tissue integrity maintained or improved Outcome: Adequate for Discharge Goal: Oral and Nasal mucous membranes remain intact Outcome: Adequate for Discharge Problem: SAFETY ADULT Goal: Maintain a safe environment Outcome: Adequate for Discharge Problem: DISCHARGE PLANNING Goal: Patient discharge needs identified Outcome: Adequate for Discharge Problem: SAFETY ADULT - RISK FOR FALL AND OR FALL INJURY Goal: Patient remains free from fall/fall injury Outcome: Adequate for Discharge Problem: GASTROINTESTINAL - ADULT Goal: Minimal or absence of nausea and vomiting Outcome: Adequate for Discharge Randee Gandhi R.N. - 12/11/2021 5:28 AM CDT Shift Goals: Clinical Goals for the Shift: Patient will get adequate rest and remain vitally stable. Identify possible barriers to meeting goals/advancing plan of care: anxiety End of Shift Summary: Patient had intermittent rest overnight with no emesis or nausea. VSS after EGD yesterday. Denies pain throughout shift. Ambulating in room stand by assist. Cecelia Winkler R.N. - 12/10/2021 6:14 AM CDT Shift Goals: Clinical Goals for the Shift: Patient will remain vitally stable this shift. Identify possible barriers to meeting goals/advancing plan of care: diagnosis End of Shift Summary: Patient's vitals remained stable throughout the night. He was able to sleep onand off, but had a hard time getting comfortable due to nausea and discomfort in stomach area. Patient's EGD has not been scheduled, but service said it will be sometime today. See below for rest of shift summary. Problem: PAIN - ADULT Goal: PT VERBALIZES/DEMONSTRATES ADEQUATE COMFORT LEVEL OR BASELINE Outcome: Progressing Note: Patient had no complaints of pain to RN throughout the shift. Problem: SAFETY ADULT Goal: Maintain a safe environment Outcome: Progressing Note: Patient remained call light appropriate this shift with bed alarm on most of shift. Patient wanted to sit on the edge of the bed a few times throughout the night, but remained call light appropriate and didn't try to get up without help. Problem: GASTROINTESTINAL - ADULT Goal: Minimal or absence of nausea and vomiting Outcome: Progressing Note: Patient had complaints of nausea this morning around 0540. RN offered medication but patient declined. Ice chips were given as patient is NPO. He told RN, Even if I could eat I wouldn't, I feel so full and nauseous. Omar Haque R.N. - 12/09/2021 5:34 PM CDT Shift Goals: Identify possible barriers to meeting goals/advancing plan of care: End of Shift Summary: Pt is a 81 y.o male With pmh of ESRD on PD, HTN, ELENI, GERD among others admitted to unit at about 1600 this with diagnosis of hematemesis. Denied any nausea/vomiting on assessment, no c/o pain/discomfort, alert and oriented and answered all admission questions without difficulty.Vital stable on RA. Adjusting comfortably to unit with no acute events thus far. Will continue to monitor and follow plan of care. documented in this encounter Miscellaneous Notes Hospital Course - Vidhya Goldstein APRN, C.N.P., M.S.N. - 12/10/2021 4:02 PM CDT Mr. 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 Is very active. He has a medical historysignificant for ESRD on nightly PD for the past 2 months, pAF on Warfarin (INR not yet therapeutic, 1 .5), significant achalasia/dysphagia and frequent aspiration pneumonia. He was recently discharged aday prior to this admission after 6 day hospitalization for right pleural empyema. His known achalasia has been refractory to multiple surgical repairs since 1968, incl last a Heller's procedure at [facility] [place] 11/2020. On 12/09, he presented via EMS to [facility] Emergency Department with concerns of weaknessand coffee ground emesis. Apparently EMS noted ice cream container worth of reddish vomit that they thought was blood. SBP was90s but improved to 120s with 1.5 L IVF. He was not transfused at the OSH ED as Hb was 12.2. He was given Kcentra (INR was 1.4) and 40 mg IV pantoprazole and directly admitted to [facility],Medicine 8 service for ongoing management. On the general floor, he remained hemodynamically stable and afebrile. His serial hemoglobins were stable. Had 1 episode of emesis of dark brown fluid. EGD showed: From 40 to 35 cm from the incisors, there was evidence of superficial stasis ulceration that would slough off and ooze blood with waterjetirrigation. Esophagogastric landmarks were identified: the site of hiatal narrowing was found at 42 cm from the incisors. Gastric contents easily refluxed into the esophagus. A large amount of brownishfluid with food particles and debris was found in the gastric fundus. This was lavaged and suctionedwith NO evidence or source of bleeding. During this hospitalization, Mr. Castro was able to meet with a dietitian to discuss the appropriate diet as well as techniques for improving flavor and texture of foods.They were given information aswell as brochures and her questions were answered. Mr. Castro was able to discuss his frustration with not being able to eat the foods that he likes and enjoys and not being able to be as socially active as he would like to be due to food constraintsand requirements. Surgical intervention such as a PEG tube was discussed. Mr. Castro stated that hehas had this conversation before with other providers. He was able to provide teach back that he needs to focus on blenderized foods and any nutrition that he can suck through a straw. It is strongly recommended that Mr. Castro follow-up with the GI/esophagus Clinic for ongoing management and recommendations. Appointment will be scheduled for Mr. Castro. It was also recommended by GI that he follow on anti-reflux regime with PPI/omeprazole 40 milligrams twice daily for an indefinite period. As he had returned to his mental and physical baseline, plans were made for him to discharge home under the watchful eye of his family. On the day of dismissal,Mr Castro was tolerating an oral diet, had no pain, and he was at his functional baseline. He was hemodynamically stable and medically ready for discharge to home. Family was able to provide private transportation. documented in this encounter Plan of Treatment Upcoming Encounters Date Type Specialty Care Team Description 04/04/2022 Appointment Laboratory Medicine Mehrdad Lazcano APRN, C.N.P. [address] [place] [address] 04/04/2022 Appointment Cardiovascular Disease Mehrdad Lazcano APRN, C.N.P. [address] [place] [address] 04/05/2022 Ancillary Procedure Cardiovascular Disease Kayla Heredia M.D. [address] [place] [phone] 04/05/2022 Appointment Cardiovascular Disease Jessa Heredia M.D. [address] [place] [address] 04/12/2022 Clinical Communication Admitting/Central Scheduling 04/15/2022 Comprehensive Visit Cardiovascular Disease Kayla Heredia M.D. [address] [place] [phone] documented as of this encounter Procedures Procedure Name Priority Date/Time Associated Comments Diagnosis RENAL FUNCTION PANEL, Routine 12/11/2021 7:30 AM Results for this S CDT procedure are i n the results section. CBC WITHOUT Routine 12/11/2021 7:30 AM Results f or this DIFFERENTIAL, B CDT procedure ar e in the results section. PATIENT'S OWN Routine 12/11/2021 2:22 AM CPAP/BIPAP CDT HEMOGLOBIN, B Timed 12/10/2021 4:17 PM Results for this CDT procedure are i n the results section. UPPER GI ENDOSCOPY Routine 12/10/2021 11:53 Resul ts for this AM CDT procedure are i n the results section. EGD Routine 12/10/2021 11:53 (ESOPHAGEALGASTRODUOD AM CDT ENOSCOPY) CBC WITHOUT Routine 12/10/2021 7:33 AM Results f or this DIFFERENTIAL, B CDT procedure ar e in the results section. PHOSPHORUS Timed 12/10/2021 7:33 AM Results f or this (INORGANIC), S CDT procedure are in the results section. ALKALINE PHOSPHATASE, Routine 12/10/2021 7:33 AM Results for this S/P CDT procedure are i n the results section. GAMMA-GLUTAMYLTRANSFE Routine 12/10/2021 7:33 AM Results for this RASE (GGT), S/P CDT procedure ar e in the results section. BASIC METABOLIC Routine 12/10/2021 7:33 AM Result s for this PANEL, S/P CDT procedure are i n the results section. SARS CORONAVIRUS 2, Routine 12/09/2021 7:48 PM Re sults for this PCR RAPID, V CDT procedure are i n the results section. ECG Routine 12/09/2021 3:35 PM Results f or this CDT procedure are i n the results section. TYPE AND SCREEN Routine 12/09/2021 3:15 PM Result s for this CDT procedure are i n the results section. CBC WITHOUT Routine 12/09/2021 3:14 PM Results f or this DIFFERENTIAL, B CDT procedure ar e in the results section. BASIC METABOLIC Routine 12/09/2021 3:14 PM Result s for this PANEL, S/P CDT procedure are i n the results section. documented in this encounter Results (ABNORMAL) Renal Function Panel (12/11/2021 7:30 AM CDT) P athologist Signature Potassium, S 3.5 (L) 3.6 - 5.2 12/11/2021 DTL mmol/L 9:18 AM CDT Sodium, S 143 135 - 145 12/11/2021 DTL mmol/L 9:18 AM CDT Chloride, S 104 98 - 107 12/11/2021 DTL mmol/L 9:18 AM CDT Bicarbonate, S 29 22 - 29 12/11/2021 DTL mmol/L 9:18 AM CDT Anion Gap 10 7 - 15 12/11/2021 DTL 9:18 AM CDT BUN (Blood 52 (H) 8 - 24 12/11/2021 DTL Urea mg/dL 9:18 AM CDT Nitrogen), S Creatinine, S 3.84 (H) 0.74 - 12/11/2021 DTL 1.35 mg/dL 9:18 AM CDT eGFR-Non <15 (L) >=60 12/11/2021 DTL Black/ mL/min/BSA 9:18 AM CDT Mozambican Comment: ----ADDITIONAL INFORMATION---- Estimated GFR calculated using the 2009 CKD_EPI creatinine equation. eGFR-Black/ 16 (L) >=60 mL/min/BSA 2021 9:18 AM CDT DTL Comment: ----ADDITIONAL INFORMATION---- Estimated GFR calculated using the 2009 CKD_EPI creatinine equation. Calcium, Total, S 8.6 (L) 8.8 - 10.2 mg/dL 12/11/2021 9:18 AM CDT DTL Glucose, S 115 70 - 140 mg/dL 12/11/2021 9:18 AM CDT D TL Albumin, S 2.8 (L) 3.5 - 5.0 g/dL 12/11/2021 9:18 AM CDT D TL Phosphorus (Inorganic), S 3.2 2.5 - 4.5 mg/dL 04/23/20 22 9:18 AM CDT DTL Specimen Anatomical Collection Method Collection Time Receive d Time (Source) Location / / Volume Laterality Blood (Blood, 12/11/2021 7:30 AM 12/12/19 8:31 Venous) CDT AM CDT Maria G Adame P.A.-C., M.S. LAB BLOOD ADD-ON Performing Organization Address [facility] Phon e Number [facility] - [address] (ABNORMAL) CBC without Differential (12/11/2021 7:30 AM CDT) [facility] Method Time Signature Hemoglobin 8.8 (L) 13.2 - 12/11/2021 DTL 16.6 g/dL 8:35 AM CDT Hematocrit 28.4 (L) 38.3 - 12/11/2021 DTL 48.6 % 8:35 AM CDT Erythrocytes 2.87 (L) 4.35 - 12/11/2021 DTL 5.65 8:35 AM CDT x10(12)/L MCV 99.0 (H) 78.2 - 12/11/2021 DTL 97.9 fL 8:35 AM CDT RBC Distrib Width 12.5 11.8 - 12/11/2021 DTL 14.5 % 8:35 AM CDT Platelet Count 176 135 - 317 12/11/2021 DTL x10(9)/L 8:35 AM CDT Leukocytes 12.3 (H) 3.4 - 9.6 12/11/2021 DTL x10(9)/L 8:35 AM CDT Specimen Anatomical Collection Method Collection Time Receive d Time (Source) Location / / Volume Laterality Blood (Blood, 12/11/2021 7:30 AM 12/12/19 22 8:21 Venous) CDT AM CDT Maria G Adame P.A.-C., M.S. LAB BLOOD ADD-ON Performing Organization Address [facility] Phon e Number [facility] - [address] [place], [place] [address] [facility] [place] [address] (ABNORMAL) Hemoglobin (12/10/2021 4:17 PM CDT) P athologist Signature Hemoglobin 10.7 (L) 13.2 - 16.6 12/10/2021 DTL g/dL 5:00 PM CDT Specimen Anatomical Collection Method Collection Time Receive d Time (Source) Location / / Volume Laterality Blood (Blood, 12/10/2021 4:17 PM 12/11/19 4:49 Venous) CDT PM CDT Maria G Adame P.A.-C. MBaileyS. LAB BLOOD ADD-ON Performing Organization Address City/State/ZIP Code Phon e Number [facility] - [address] [place] [phone] [facility] [place] [address] [facility] 200 [facility] Upper GI Endoscopy (12/10/2021 11:53 AM CDT) Specimen (Source) Anatomical Collection Method Collection Time Re ceived Time Location / / Volume Laterality 12/10/2021 11:53 AM CDT [facility]ressions [facility] 12/10/[facility]21 4:10 PM CDT Post-op Diagnoses: ? - NO active bleeding throughout e xam. ? 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 Superficial ? stasis ulceration with friability and oozing with irrgation. Likely ? source of bleeding with anticoagu lation. ? - Normal stomach where visualized . ? - Normal duodenum and renu gla nd hyperplasia in bulb. ? - No specimens collected. Narrative [facility] [employer] - 12/10/2021 4:10 PM CDT Saul 6 GI GI Patient Name: David Castro Date of : 1940 Age: 81 Gender: Male Procedure Date: 12/10/2021 Procedure: ? Upper GI endoscopy Providers: ? Lukasz Flannery MD, Connor Potter MD ? (Fe llow) Referring Provider: ?Lorne Galloway Pre-op Diagnoses: ?Coffee-grou nd emesis Recommendation: ? - Return [facility] to [facility] for [facility] care. ? - Follow an antireflux regimen wi th PO PPI 40 mg BID indefinitely and ? advise sleeping at inclination of 45 degree. Avoid meals or liquids 3-4 ? hours prior to sleep. ? - Recommend sucralfate 1 g BID fo r 2 weeks. Findings: ? The lumen of the esophagus was se verely dilated and foam and fluid ? filled (brownish fluid with food debris). The fluid was aspirated ? allowing adequate assessment of juliano trevino esophageal mucosa. From 40 to 35 cm ? from the incisors, there was evid ence of superficial stasis ulceration ? that would slough off and ooze bl ood with waterjet irrigation. ? Esophagogastric landmarks were id entified: the site of hiatal narrowing ? was found at 42 cm from the incis ors. ? Gastroscope was easily passed to the stomach without stenosis at GE ? junction after surgical myotomy. Gastric contents easily refluxed into ? the esophagus. ? A large amount of brownish fluid with food particles and debris was ? found in the gastric fundus. This was lavaged and suctioned with NO ? evidence or source of bleeding. T belinda fundus mucosa was inadequately ? visualized given the amount of de bris adhering to the gastric wall ? despite gastric lavage. The remai nder of the stomach appeared normal. ? The duodenal bulb showed renu gland hyperplasia but no evidence of ? ulceration. The first and second portions of the duodenum were normal. ? NO evidence or source for bleedin g. Procedural Details: ? The patient was seen, evaluated, history reviewed, airway and heart-lung ? exams were performed by licensed provider and were satisfactory for ? planned level of sedation care. ? The risks, benefits and alternati ves for the procedure and sedation were ? discussed and informed consent wa s obtained. A procedural pause was ? conducted in the presence of assi sting personnel to verify the correct ? patient identity and procedure to be performed. Throughout the ? procedure, the patient's blood pr essure, pulse, and oxygen saturations ? were monitored continuously. The Gastroscope was introduced under direct ? vision through the mouth, and adv anced to the second part of duodenum. ? The upper GI endoscopy was accomp lished without difficulty. The patient ? tolerated the procedure well. Estimated Blood Loss: ?Estimated blo od loss: none. Complications: ? No immedia te complications. 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 pro cedure, including non-coughlin portions. Toby Flannery MD 12/10/2021 3:22:32 PM This report has been signed electronical ly. Number of Addenda: 0 Lorne Sanchez, ChBaileyB. GI PROCEDURE ORDERABLES Performing Organization Address City/State/ZIP Code Phon e Number [facility] NA (ABNORMAL) Alkaline Phosphatase (12/10/2021 7:33 AM CDT) P athologist Signature Alkaline 229 (H) 40 - 129 12/10/2021 DTL Phosphatase, S U/L 1:14 PM CDT Specimen Anatomical Collection Method Collection Time Receive d Time (Source) Location / / Volume Laterality Blood (Blood, 12/10/2021 7:33 AM 12/11/19 Venous) CDT 12:43 PM CDT Maria G Adame P.A.-C., M.S. LAB BLOOD ADD-ON Performing Organization Address City/State/ZIP Code Phon e Number [facility] - [address] [place], [place] [address] [facility] [place] [address] [facility] [address] (ABNORMAL) GGT (Gamma-Glutamyltransferase) (12/10/2021 7:33 AM CDT) Component Value Ref Test Analysis Performed At [facility] Range Method Time Signature Gamma 121 (H) 8 - 61 12/10/2021 DTL Glutamyltransferase U/L 1:14 PM CDT (GGT), S Specimen Anatomical Collection Method Collection Time Receive d Time (Source) Location / / Volume Laterality Blood (Blood, 12/10/2021 7:33 AM 12/11/19 22 Venous) CDT 12:43 PM CDT Maria G Adame P.A.-C., M.S. LAB BLOOD ADD-ON Performing Organization Address City/[facility] Phon e Number [facility] - 200 [place], [place] [address] [place] [id number] [place] [address] Phosphorus Inorganic (12/10/2021 7:33 AM CDT) P athologist Signature Phosphorus 3.4 2.5 - 4.5 12/10/2021 DTL (Inorganic), S mg/dL 9:20 AM CDT Specimen Anatomical Collection Method Collection Time Receive d Time (Source) Location / / Volume Laterality Blood (Blood, 12/10/2021 7:33 AM 12/11/19 8:15 Venous) CDT AM CDT Maria G Adame P.A.-C., M.S. LAB BLOOD ADD-ON Performing Organization Address City/[facility] Phon e Number [facility] - [address] [place] [address] [place] [id number] [facility] (ABNORMAL) CBC without Differential (12/10/2021 7:33 AM CDT) [facility] Method Time Signature Hemoglobin 10.7 (L) 13.2 - 12/10/2021 DTL 16.6 g/dL 8:05 AM CDT Hematocrit 34.4 (L) 38.3 - 12/10/2021 DTL 48.6 % 8:05 AM CDT Erythrocytes 3.46 (L) 4.35 - 12/10/2021 DTL 5.65 8:05 AM CDT x10(12)/L MCV 99.4 (H) 78.2 - 12/10/2021 DTL 97.9 fL 8:05 AM CDT RBC Distrib Width 12.5 11.8 - 12/10/2021 DTL 14.5 % 8:05 AM CDT Platelet Count 189 135 - 317 12/10/2021 DTL x10(9)/L 8:05 AM CDT Leukocytes 11.8 (H) 3.4 - 9.6 12/10/2021 DTL x10(9)/L 8:05 AM CDT Specimen Anatomical Collection Method Collection Time Receive d Time (Source) Location / / Volume Laterality Blood (Blood, 12/10/2021 7:33 AM 12/11/19 7:54 Venous) CDT AM CDT Lorne Sanchez, Ch.B. LAB BLOOD ADD-ON Performing Organization Address City/State/ZIP Code Phon e Number [facility] - 200 [place], [place] [address] [facility] [place] [address] [facility] 200 [facility] (ABNORMAL) Basic Metabolic Panel (12/10/2021 7:33 AM CDT) P athologist Signature Potassium, S 3.9 3.6 - 5.2 12/10/2021 DTL mmol/L 8:31 AM CDT Sodium, S 144 135 - 145 12/10/2021 DTL mmol/L 8:31 AM CDT Chloride, S 104 98 - 107 12/10/2021 DTL mmol/L 8:31 AM CDT Bicarbonate, S 33 (H) 22 - 29 12/10/2021 DTL mmol/L 8:31 AM CDT Anion Gap 7 7 - 15 12/10/2021 DTL 8:31 AM CDT BUN (Blood 49 (H) 8 - 24 12/10/2021 DTL Urea mg/dL 8:31 AM CDT Nitrogen), S Creatinine, S 4.05 (H) 0.74 - 12/10/2021 DTL 1.35 mg/dL 8:31 AM CDT eGFR-Non <15 (L) >=60 12/10/2021 DTL Black/ mL/min/BSA 8:31 AM CDT [place] Comment: ----ADDITIONAL INFORMATION---- Estimated GFR calculated using the 2009 CKD_EPI creatinine equation. eGFR-Black/ 15 (L) >=60 mL/min/BSA 2021 8:31 AM CDT DTL Comment: ----ADDITIONAL INFORMATION---- Estimated GFR calculated using the 2009 CKD_EPI creatinine equation. Calcium, Total, S 8.5 (L) 8.8 - 10.2 mg/dL 12/10/2021 8:31 AM CDT DTL Glucose, S 136 70 - 140 mg/dL 12/10/2021 8:31 AM CDT D TL Specimen Anatomical Collection Method Collection Time Receive d Time (Source) Location / / Volume Laterality Blood (Blood, 12/10/2021 7:33 AM 12/11/19 8:14 Venous) CDT AM CDT Lorne Sanchez, Ch.B. LAB BLOOD ADD-ON Performing Organization Address City/State/ZIP Code Phon e Number [facility] - [address] [place] [phone] [facility] [place] [address] [facility] 200 [facility] SARS Coronavirus 2, PCR Rapid, V (12/09/2021 7:48 PM CDT) [facility] Method Time Signature SARS CoV-2, Undetected Undetected 12/09/2021 STMA PCR, Rapid, V 8:26 PM CDT Comment: ----ADDITIONAL INFORMATION---- This RT-PCR test was performed using the Penny SARS-CoV-2 and Influenza A/B Reagent assay from [employer], which has received Emergency Use Authori zation(EUA) by the U.S. Food and Drug Administration . Fact sheets for this Emergency Use Autho rization (EUA) assay can be found at the following link s: For Healthcare Providers: https://www.fda.gov/media/958180/downloa d For Patients: https://www.fda.gov/media/580911/downloa d SARS Coronavirus 2, Source, Rapid Swab, Nasopharynx 12/09/2021 8:00 PM CDT STMA Specimen Anatomical Collection Method Collection Time Receive d Time (Source) Location / / Volume Laterality Varies 12/09/2021 7:48 PM 7:59 CDT PM CDT Marlyn Benson P.A.-C. LAB MICROBIOLOGY - GENERAL ORDERABLES Performing Organization Address City/State/ZIP Code Phon e Number [facility] - [address] [place], [place] [address] [facility] [place] [address] [facility] [address] [facility] ECG 12 Lead (12/09/2021 3:35 PM CDT) P athologist Signature Ventricular Rate 88 BPM MUSE ECG/Min QRSD Interval 124 ms MUSE QT Interval 398 ms MUSE QTC Interval 481 ms MUSE R [place] 0 degrees MUSE T Wave [place] -1 degrees MUSE Specimen Anatomical Collection Method Collection Time Receive d Time (Source) Location / / Volume Laterality 12/09/2021 3:35 PM 3:41 CDT PM CDT Impressions MUSE - 12/09/2021 3:41 PM CDT Atrial tachycardia with variable A-V block Left bundle branch block with secondary ST-T abnormalities When compared with ECG of 15-FEB-2019 08 :59, QT has shortened Premature ventricular complexes or aberr antly conducted complexes are no longer present Reviewed by NICHOL Vazquez Narrative This result has an attachment that is no t available. Procedure Note Christopher Alexandre M.D. - 12/09/2021Format ting of this note might be different from the original. IMPRESSION: Atrial tachycardia with variable A-V blo ck Left bundle branch block with secondary ST-T abnormalities When compared with ECG of 15-FEB-2019 08 :59, QT has shortened Premature ventricular complexes or aberr antly conducted complexes are no longer present Reviewed by NICHOL Vazquez Lorne Sanchez, Ch.B. ECG ORDERABLES Performing Organization Address City/State/ZIP Code Phon e Number MUSE MUSE NA Type and Screen (with reflex Antibody ID) (12/09/2021 3:15 PM CDT) Patholo gist Method Time Signature ABORh O Pos Not 12/09/2021 STRM applicable 4:06 PM CDT Antibody Negative Negative 12/09/2021 STRM Screen 4:17 PM CDT Type & Screen 12/12/2021 12/09/2021 STRM Expiration 23:59 4:06 PM CDT Testing [facility] 12/09/2021 STR Location 3:24 PM CDT Specimen Anatomical Collection Method Collection Time Receive d Time (Source) Location / / Volume Laterality Blood (Blood, 12/09/2021 3:15 PM 12/10/19 3:24 Venous) CDT PM CDT Lorne Sanchez, Joie LAB BLOOD BANK TEST ORDERABL ES Performing Organization Address City/State/ZIP Code Phon e Number [facility] - [address] [place], [place] [address] [place] [address] [facility] [address] (ABNORMAL) Basic Metabolic Panel (12/09/2021 3:14 PM CDT) P athologist Signature Potassium, S 3.4 (L) 3.6 - 5.2 12/09/2021 DTL mmol/L 4:43 PM CDT Sodium, S 145 135 - 145 12/09/2021 DTL mmol/L 4:43 PM CDT Chloride, S 102 98 - 107 12/09/2021 DTL mmol/L 4:43 PM CDT Bicarbonate, S 31 (H) 22 - 29 12/09/2021 DTL mmol/L 4:43 PM CDT Anion Gap 12 7 - 15 12/09/2021 DTL 4:43 PM CDT BUN (Blood 39 (H) 8 - 24 12/09/2021 DTL Urea mg/dL 4:43 PM CDT Nitrogen), S Creatinine, S 3.98 (H) 0.74 - 12/09/2021 DTL 1.35 mg/dL 4:43 PM CDT eGFR-Non <15 (L) >=60 12/09/2021 DTL Black/ mL/min/BSA 4:43 PM CDT [place] Comment: ----ADDITIONAL INFORMATION---- Estimated GFR calculated using the 2009 CKD_EPI creatinine equation. eGFR-Black/ 15 (L) >=60 mL/min/BSA 2021 4:43 PM CDT DTL Comment: ----ADDITIONAL INFORMATION---- Estimated GFR calculated using the 2009 CKD_EPI creatinine equation. Calcium, Total, S 8.5 (L) 8.8 - 10.2 mg/dL 12/09/2021 4:43 PM CDT DTL Glucose, S 118 70 - 140 mg/dL 12/09/2021 4:43 PM CDT D TL Specimen Anatomical Collection Method Collection Time Receive d Time (Source) Location / / Volume Laterality Blood (Blood, 12/09/2021 3:14 PM 12/10/19 4:06 Venous) CDT PM CDT Lorne Sanchez, ChBaileyB. LAB BLOOD ADD-ON Performing Organization Address City/State/[facility] Phon e Number [facility] - 200 [place], [place] [address] [facility] [place] [address] [facility] 200 [facility] (ABNORMAL) CBC without Differential (12/09/2021 3:14 PM CDT) [facility] gist Method Time Signature Hemoglobin 11.5 (L) 13.2 - 12/09/2021 DTL 16.6 g/dL 3:52 PM CDT Hematocrit 36.1 (L) 38.3 - 12/09/2021 DTL 48.6 % 3:52 PM CDT Erythrocytes 3.69 (L) 4.35 - 12/09/2021 DTL 5.65 3:52 PM CDT x10(12)/L MCV 97.8 78.2 - 12/09/2021 DTL 97.9 fL 3:52 PM CDT RBC Distrib Width 12.4 11.8 - 12/09/2021 DTL 14.5 % 3:52 PM CDT Platelet Count 197 135 - 317 12/09/2021 DTL x10(9)/L 3:52 PM CDT Leukocytes 9.2 3.4 - 9.6 12/09/2021 DTL x10(9)/L 3:52 PM CDT Specimen Anatomical Collection Method Collection Time Receive d Time (Source) Location / / Volume Laterality Blood (Blood, 12/09/2021 3:14 PM 12/10/19 3:41 Venous) CDT PM CDT Lorne Sanchez, Ch.B. LAB BLOOD ADD-ON Performing Organization Address City/State/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 Lymphopenia Pneumonitis Due To Inhalation Of Food An d Vomit (HCC) Apnea Sleep Obstructive Anxiety Generalized Disorder documented in this encounter Admitting Diagnoses Diagnosis Hematemesis documented in this encounter Administered Medications Inactive Administered Medications - up to 3 most recent administrations Medication Order MAR Action Action Date Dose Rate Site allopurinoL tablet 100 mg Given 12/11/2021 9:58 AM CDT 100 mg (ZYLOPRIM) 100 mg, oral, Daily, First dose on Mon12/10/21 at 0900 Given 12/10/2021 8:03 AM CDT 100 mg amoxicillin-pot clavulanate 500-125 mg per Given 12/11/2021 9:58 AM CDT 500 mg tablet 500 mg (AUGMENTIN) 500 mg (1 tablet), oral, Every 24 hours scheduled, First dose on Mon12/10/21 at 0900, For 16 days, Drug Monitoring Program: Pharmacist to adjust medication dosing based on indication and drug clearance factors., Indications: Respiratory tract infection, community acquired Given 12/10/2021 8:06 AM CDT 500 mg calcitRIOL capsule 0.25 mcg (ROCALTROL) Given 12/10/2021 8:06 AM CDT 0.25 mcg 0.25 mcg, oral, 3 times weekly (Once per day on Mon), First dose on Mon12/10/21 at 0900 D5W and NaCl 0.45 % infusion New Bag 12/09/2021 9:20 PM CDT 75 mL/hr 75 mL/hr 75 mL/hr, intravenous, Continuous, Starting on Mon12/09/21 at 2045, For 13 hours gentamicin 0.1 % ointment 1 Given 12/11/2021 9:59 AM CDT 1 appli cation application (GARAMYCIN) 1 application, topical, Daily, First dose on Mon12/10/21 at 1000 hydrALAZINE tablet 10 mg (APRESOLINE) Given 12/10/2021 2:12 PM CDT 10 mg 10 mg, oral, 3 times daily, First dose on Mon12/09/21 at 2100 Given 12/10/2021 8:03 AM CDT 10 mg Given 12/09/2021 8:29 PM CDT 10 mg isosorbide dinitrate tablet 2.5 mg (ISOR DIL) Given 12/11/2021 11:14 AM CDT 2.5 mg 2.5 mg, oral, 3 times daily before meals, First dose on Mon12/10/21 at 0700, HOLD for SBP <100 Given 12/11/2021 6:14 AM CDT 2.5 mg Given 12/10/2021 4:14 PM CDT 2.5 mg metoprolol tartrate tablet 25 mg (LOPRES SOR) Given 12/11/2021 9:58 AM CDT 25 mg 25 mg, oral, 2 times daily, First dose on Mon12/09/21 at 2100, HOLD for SBP <100 or HR <60 Given 12/10/2021 7:53 PM CDT 25 mg Given 12/10/2021 8:03 AM CDT 25 mg multivitamin renal failure 100-1 mg 1 Given 12/10/2021 4:14 PM C DT 1 tablet tablet (DIALYVITE) 1 tablet, oral, Daily with dinner, First dose on Mon12/10/21 at 1700, give after dialysis on dialysis days pantoprazole DR tablet 40 mg (PROTONIX) Given 12/11/2021 6:15 AM CDT 40 mg 40 mg, oral, 2 times daily before breakfast and dinner, First dose on Mon12/10/21 at 1615, Swallow whole. Do NOT crush, chew, or split tablet. Given 12/10/2021 4:14 PM CDT 40 mg pantoprazole injection 40 mg (PROTONIX) Given 12/10/2021 8:03 AM CDT 40 mg 40 mg, intravenous, Every 24 hours scheduled, First dose on Mon12/10/21 at 0900, Administer IV push over 2 minutes. Add 10 mL NS to 40 mg vial for a final concentration of 4 mg/mL. polyethylene glycol powder packet 17 g ( MIRALAX) 17 g, oral, Daily PRN, constipation, Starting on Mon at 1710, Ordered sequence of administration: polyethylene glycol, then bisacodyl until BM achieved. Avoid mixing with starch-based thickened liquids. potassium chloride ER tablet 10 mEq Given 12/09/2021 9:15 PM CDT 10 mEq (KLORCON/K-TAB) 10 mEq, oral, Once, On Alyssa 12/09/21 at 2045, For 1 dose, Swallow whole. Do NOT crush, chew, or split tablet. sucralfate tablet 1 g (CARAFATE) Given 12/11/2021 6:15 AM CDT 1 g 1 g, oral, 2 times daily before breakfast and dinner, First dose (after last modification) on 12/10/21 at 1630, For 14 days, Administer on an empty stomach (1 hour before or 2 hours after eating). torsemide tablet 20 mg (DEMADEX) Given 12/11/2021 9:58 AM CDT 20 mg 20 mg, oral, Daily, First dose on 12/11/21 at 0900, HOLD for SBP <100 documented in this encounter Active and Recently Administered Medications Times are shown in CDT. Scheduled Medication Order 12/09/2021 12/10/2021 12/11/2021 allopurinoL tablet 100 mg (ZYLOPRIM) 080 3 (Given - Provider: Janeth Nicole RBaileyN.) 0958 (Given - Provider: Janeth Nicole RBaileyN.) 100 mg, oral, Daily, First dose on Mon12/10/21 at 0900 amoxicillin-pot clavulanate 500-125 mg per tablet 500 mg (AU GMENTIN) 0806 (Given - Provider: Janeth Nicole R.N.) 0958 (Given - Provider: Janeth Nicole R.N.) 500 mg (1 tablet), oral, Every 24 hours scheduled, First dose on Mon12/10/21 at 0900, For 16 days, Drug Monitoring Program: Pharmacist to adjust medication dosing based on indication and drug clearance factors., Indications: Respiratory tract infection, community ac quired calcitRIOL capsule 0.25 mcg (ROCALTROL) 0806 (Given - Provider: Janeth Nicole RBaileyNBailey) 0.25 mcg, oral, 3 times weekly (Once per day on Mon), First dose on Mon12/10/21 at 0900 gentamicin 0.1 % ointment 1 application (GARAMYCIN) 111 (Not Given - Provider: Janeth Nicole R.N. - Reason: Patient not available) 0959 (Given - Provider: Janeth Nicole R.N.) 1 application, topical, Daily, First dose on Mon12/10/21 at 1000 hydrALAZINE tablet 10 mg (APRESOLINE) (CANCELED) 2028 (Given - Provider: Cecelia Winkler RBaileyN.) 0803 (Given - Provider: Janeth Nicole R.N.)1412 (Given - Provider: Janeth Nicole R.N.) 10 mg, oral, 3 times daily, First dose on Mon12/09/21 at 2100 isosorbide dinitrate tablet 2.5 mg (ISORDIL) 0548 (Given - Provider: Cecelia Winkler RBaileyN.)1118 (Not Given - Provider: Janeth Nicole R.N. - Reason: Patient not available)1614 (Given - Provider: Janeth Nicole R.N.) 0614 (Given - Provider: Randee Gandhi RBaileyNBailey)1114 (Given - Provider: Janeth Nicole R.N.) 2.5 mg, oral, 3 times daily before meals , First dose on Mon12/10/21 at 0700, HOLD for SBP <100 metoprolol tartrate tablet 25 mg (LOPRESSOR) 2028 (Giv en - Provider: Cecelia Winkler RBaileyN.) 0803 (Given - Provider: Suzy RandhawaN.)1953 (Given - Provider: Randee Gandhi RBaileyN.) 0958 (Given - Provider: Janeth Nicole R.N.) 25 mg, oral, 2 times daily, First dose o n Mon12/09/21 at 2100, HOLD for SBP <100 or HR <60 multivitamin renal failure 100-1 mg 1 tablet (DIALYVITE) 1614 (Given - Provider: Janeth Nicole R.N.) 1 tablet, oral, Daily with dinner, First dose on Mon12/10/21 at 1700, give after dialysis on dialysis days pantoprazole DR tablet 40 mg (PROTONIX) 1614 (Given - Provider: Janeth Nicole RBaileyN.) 0615 (Given - Provider: Randee Gandhi R.N.) 40 mg, oral, 2 times daily before breakf ast and dinner, First dose on Mon12/10/21 at 1615, Swallow whole. Do NOT crush, chew, or split tablet. pantoprazole injection 40 mg (PROTONIX) (CANCELED) 08 (Given - Provider: Janeth Nicole R.N.) 40 mg, intravenous, Every 24 hours sched uled, First dose on Mon12/10/21 at 0900, Administer IV push over 2 minutes. Add 10 mL NS to 40 mg vial for a final concentration of 4 mg/mL. potassium chloride ER tablet 10 mEq (KLORCON/K-TAB) (C OMPLETED) 2114 (Given - Provider: Cecelia Winkler R.N.) 10 mEq, oral, Once, On Alyssa 12/09/21 at 20 45, For 1 dose, Swallow whole. Do NOT crush, chew, or split tablet. sucralfate tablet 1 g (CARAFATE) (CANCELED) 1802 (Not Given - Provider: Janeth Nicole R.N. - Reason: Medication not available - Comment: medication did not arrive before patient ate, NPO all day and wanted to eat) 614 (Given - Provider: Randee Gandhi RNicholas) 1 g, oral, 2 times daily before breakfas t and dinner, First dose (after last modification) on Mon12/10/21 at 1630, For 14 days, Administer on an empty stomach (1 hour before or 2 hours after eating). torsemide tablet 20 mg (DEMADEX) 957 (Given - Provider: Janeth Nicole R.N.) 20 mg, oral, Daily, First dose on 12/11/21 at 0900, HOLD for SBP <100 Continuous Medication Order 12/09/2021 12/10/2021 12/11/2021 D5W and NaCl 0.45 % infusion () 2120 (New Bag - Provider: Cecelia Winkler RNicholas) 1052 (Stopped - Provider: Janeth Nicole R.N.) 75 mL/hr, intravenous, Continuous, Start ing on Alyssa 12/09/21 at 2045, For 13 hours PRN Medication Order 12/09/2021 12/10/2021 12/11/2021 polyethylene glycol powder packet 17 g (MIRALAX) 17 g, oral, Daily PRN, constipation, Sta rting on Alyssa 12/09/21 at 1710, Ordered sequence of administration: polyethylene glycol, then bisacodyl until BM achieved. Avoid mixing with starch-based thickened liquids. documented in this encounter Additional Health Concerns Infection Onset Date Last Indicated Resolved Time COVID19 Pending 12/09/2021 12/09/2021 12/09/2021 8:00 PM CDT COVID19 Pending 12/09/2021 12/09/2021 12/09/2021 8:26 PM CDT documented as of this encounter
--- OUTSIDE RECORDS SUMMARY | 2022-03-31 20:36 | XMS_ITS | Encounter Summary ---
:1940 Author Organization [facility] Address [address] [place] [address] Care Team Providers Name Role Phone Unavailable Primary Care Provider Unavailable Reason for Referral MRI/CAT/PET Scan (Routine) - Closed Specialty Diagnoses / Procedures Referred By Contact Refer red To Contact Radiology Diagnoses Pneumonitis Due To Inhalation Of Food And Vomit (HCC) Peng Tinajero M.D. [facility] Procedures CT Chest without IV Contrast AL CT THORAX WO CNTRST [address] [place] [address] [phone] Referral ID Status Reason Start Date Expiration Date Visits Requ ested Visits Authorized [id number] Closed 12/28/2021 12/28/2022 1 1 Reason for Visit MRI/CAT/PET Scan (Routine) - Closed Specialty Diagnoses / Procedures Referred By Contact Refer red To Contact Radiology Diagnoses Pneumonitis Due To Inhalation Of Food And Vomit (HCC) Peng Tinajero M.D. [facility] Procedures CT Chest without IV Contrast AL CT THORAX WO CNTRST [address] [place] [address] [phone] Referral ID Status Reason Start Date Expiration Date Visits Requ ested Visits Authorized [id number] Closed 12/28/2021 12/28/2022 1 1 Encounter Details Date Type Department Care Team Description 03/02/2022 Hospital Encounter Department of Pneg Tinajero Pneumon itis Due To RadiologyDanny M.D. Inhalation Of Food Building, in [address] [facility] And Vomit (HCC) [place], [place] [address] [address] [place], [place] [phone] (Work) [phone] Social History Tobacco Use Types Packs/Day Years [...] or relatives? How often do you attend muslim or More than 4 times per year 02/14/2019 shinto services? Do you belong to any clubs or No 02/14/2019 organizations such as muslim groups, unions, fraternal or athletic groups, or [...] on file documented as of this encounter Medications at Time of Discharge Medication Sig Dispensed Refills Start Date End Date allopurinol (ZYLOPRIM) Take 100 mg by mouth 0 100 mg tablet daily. calcitRIOL (ROCALTROL) 1 capsule. 3 times 0 12/27 0.25 mcg capsule weekly metoprolol tartrate Take 25 mg by mouth 2 0 (LOPRESSOR) 25 mg tablet (two) times a day. multivitamin renal Take 1 tablet by mouth 30 tablet 0 12/08 failure (DIALYVITE) 100-1 daily with dinner. mg tablet omeprazole (PriLOSEC) 20 Take 1 capsule (20 mg 0 12/11/[address] capsule total) by mouth 2 (two) times a day before breakfast and dinner. torsemide (DEMADEX) 20 mg Take 1 tablet (20 mg 0 12/12/2021 tablet total) by mouth daily. warfarin (COUMADIN) 2 mg 1 mg on //Mon and 0 01/07/2019 tablet 2 mg on ///Mon. documented as of this encounter Plan of Treatment Upcoming Encounters Date Type Specialty Care Team Description 04/04/2022 Appointment Laboratory Medicine Mehrdad Lazcano APRN, C.N.P. [address] [place] [address] 04/04/2022 Appointment Cardiovascular Disease Mehrdad Lazcano APRN, C.N.P. [address] [place] [address] 04/05/2022 Ancillary Procedure Cardiovascular Disease Kayla Heredia M.D. [address] [place] [phone] 04/05/2022 Appointment Cardiovascular Disease Jessa Heredia M.D. [address] [place] [phone] 04/12/2022 Clinical Communication Admitting/Central Scheduling 04/15/2022 Comprehensive Visit Cardiovascular Disease Kayal Heredia M.D. [address] [place] [address] documented as of this encounter Procedures Procedure Name Priority Date/Time Associated Comments Diagnosis CT CHEST WITHOUT RAD - Routine 03/02/2022 10:14 Pneumonitis Due To Results for this IV CONTRAST (most inpatients AM CDT Inhalation Of Food proce dure are in and all And Vomit (HCC) the results outpatients) section. documented in this encounter Results CT Chest without IV Contrast (03/02/2022 [...] . Multiple findings are otherwise stable. Peng BAKER CT PROCEDURES documented in this encounter Visit Diagnoses Diagnosis Pneumonitis Due To Inhalation Of Food An d Vomit (HCC) documented in this encounter
--- OUTSIDE RECORDS SUMMARY | 2022-03-31 20:36 | XMS_ITS | Encounter Summary ---
:1940 Author Organization [facility] Address [address] [place] [address] Care Team Providers Name Role Phone Unavailable Primary Care Provider Unavailable Encounter Details Date Type Department Care Team Description 12/09/2021 Clinical Communication [facility], Gurpreet Adame, [facility], P.Lyric.Kathy., M.S . [facility], [address] [place] [address] Third [place], [place] [address] [place] [phone] [place], [place] [phone] (Work) [phone] Social History Tobacco Use Types Packs/Day Years Used Date Smoking Tobacco: Never Smokeless Tobacco: Never Alcohol Use Standard Drinks/Week Comments Never 0 (1 standard drink = 0.6 oz pure alcoho l) Social Isolation Answer Date Recorded In a typical week, how many times do you Once a week 02/14/2019 talk on the phone with family, friends, or neighbors? How often do you get together with friends More than three t imes a week 02/14/2019 or relatives? How often do you attend samaritan or More than 4 times per year 02/14/2019 orthodoxy services? Do you belong to any clubs or No 02/14/2019 organizations such as samaritan groups, unions, fraternal or athletic groups, or [...] on file documented as of this encounter Miscellaneous Notes Telephone Encounter - Maria G Adame P.A.-C., M.S. - 12/09/2021 11:50 AM CDT Patient and called regarding patient having vomiting and loose stools overnight. Vomiting appeared dark, however patient had liver for dinner. Denies any fevers, chills or any other systemic symptoms. Patient has a primary care appointment scheduled for today which he was strongly encouraged to attend given his new vomiting and post-hospitalization follow up. However he was also advised to go toa local emergency department or urgent care if his symptoms persist, worsen or do not improve. documented in this encounter Plan of Treatment Upcoming Encounters Date Type Specialty Care Team Description 04/04/2022 Appointment Laboratory Medicine Mehrdad Lazcano APRN, C.N.P. [address] [place] [address] 04/04/2022 Appointment Cardiovascular Disease Mehrdad Lazcano APRN, C.N.P. [address] [place] [address] 04/05/2022 Ancillary Procedure Cardiovascular Disease Kayla Heredia M.D. [address] [place] [phone] 04/05/2022 Appointment Cardiovascular Disease Jessa Heredia M.D. [address] [place] [phone] 04/12/2022 Clinical Communication Admitting/Central Scheduling 04/15/2022 Comprehensive Visit Cardiovascular Disease Kayla Heredia M.D. [address] [place] [phone] documented as of this encounter Visit Diagnoses Not on filedocumented in this encounter
--- OUTSIDE RECORDS SUMMARY | 2022-03-31 20:36 | XMS_ITS | Encounter Summary ---
:1940 Author Organization [facility] Address [address] [place] [address] Care Team Providers Name Role Phone Unavailable Primary Care Provider Unavailable Encounter Details Date Type Department Care Team Description 12/08/2021 Orders Only Division of Nephrology and Shanon Turner A PRN, Hypertension, Yazidi C.N.P. [place], in [place] [address] [address] [place], [place] [address] [place] [phone] [place] [address] [phone] Social History Tobacco Use Types Packs/Day Years [...] More than 4 times per year 02/14/2019 worship services? Do you belong to any clubs [...] on file documented as of this encounter Plan of Treatment Upcoming Encounters Date Type Specialty Care Team Description 04/04/2022 Appointment Laboratory Medicine Mehrdad Lazcano APRN, C.N.P. [address] [place] [address] 04/04/2022 Appointment Cardiovascular Disease Mehrdad Lazcano APRN, C.N.P. [address] [place] [address] 04/05/2022 Ancillary Procedure Cardiovascular Disease Kayla Heredia M.D. [address] [place] [phone] 04/05/2022 Appointment Cardiovascular Disease Jessa Heredia M.D. 200 [place] [phone] 04/12/2022 Clinical Communication Admitting/Central Scheduling 04/15/2022 Comprehensive Visit Cardiovascular Disease Kayla Heredia M.D. [address] [place] [phone] documented as of this encounter Visit Diagnoses Not on filedocumented in this encounter Additional Health Concerns Infection Onset Date Last Indicated Resolved Time COVID19 Pending 12/09/2021 12/09/2021 12/09/2021 8:00 PM CDT COVID19 Pending 12/09/2021 12/09/2021 12/09/2021 8:26 PM CDT documented as of this encounter
--- OUTSIDE RECORDS SUMMARY | 2022-03-31 20:36 | XMS_ITS | Encounter Summary ---
:1940 Author Organization [facility] Address [address] [place] [address] Care Team Providers Name Role Phone Unavailable Primary Care Provider Unavailable Reason for Referral Outpatient (Routine) - Authorized Specialty Diagnoses / Referred By Contact Referred To Procedures Contact Gastroenterology and Diagnoses Vdihya Bergeron [facility] Hepatology Pablo QUINTANILLA.NDenisse, M.S.N. [address] [place] [phone] Referral ID Status Reason Start Date Expiration Date Visits V isits Requested Authorized [id number] Authorized 12/13/2021 12/13/2022 1 1 Encounter Details Date Type Department Care Team Description 12/13/2021 Clinical Communication [facility]ST HIM Vidhya Goldstein [address] [place] [address] DWIGHT Guevara C.N.PBailey, [place], [place] M.S.N. [phone] [place] [phone] Social History Tobacco Use Types Packs/Day Years [...] or relatives? How often do you attend confucianist or More than 4 times per year 02/14/2019 sikhism services? Do you belong to any clubs or No 02/14/2019 organizations such as confucianist groups, unions, fraternal or athletic groups, or [...] Laboratory Medicine Mehrdad Lazcano APRN, C.N.P. [address] [place] [address] 04/04/2022 Appointment Cardiovascular Disease Mehrdad Lazcano APRN, C.N.P. [address] [place] [address] 04/05/2022 Ancillary Procedure Cardiovascular Disease Kayla Heredia M.D. [address] [place] [phone] 04/05/2022 Appointment Cardiovascular Disease Jessa Heredia M.D. [address] [place] [phone] 04/12/2022 Clinical Communication Admitting/Central Scheduling 04/15/2022 Comprehensive Visit Cardiovascular Disease Kayla Heredia M.D. [address] [place] [phone] Scheduled Referrals Name Type Priority Associated Order Schedule Diagnoses Gastroenterology and Outpatient Routine Achalasia Expecte d: Hepatology - Esophageal Referral 11/20 consult (clinic) (Approximat e), Expires: 03/14/2023 documented as of this encounter Visit Diagnoses Diagnosis Achalasia - Primary documented in this encounter
--- OUTSIDE RECORDS SUMMARY | 2022-03-31 20:36 | XMS_ITS | Encounter Summary ---
:1940 Author Organization [facility] Address [address] [place] [address] Care Team Providers Name Role Phone Unavailable Primary Care Provider Unavailable Reason for Referral Outpatient (Routine) - Closed Specialty Diagnoses / Procedures Referred By Contact Refer red To Contact Pulmonary Medicine Peng Tinajero M.D. [facility] [address] [place] [address] Referral ID Status Reason Start Date Expiration Date Visits Requ ested Visits Authorized [id number] Closed 12/28/2021 12/28/2022 1 1 Scheduling Instructions F/U pleural clinic. I am happy to see bu t if this doesn't work out he can be seen in pleural clinic. RI/CAT/PET Scan (Routine) - Closed Specialty Diagnoses / Procedures Referred By Contact Refer red To Contact Radiology Diagnoses Pneumonitis Due To Inhalation Of Food And Vomit (HCC) Peng Tinajero M.D. [facility] Procedures CT Chest without IV Contrast [place] CT THORAX WO CNTRST [address] [place], [place] [address] Referral ID Status Reason Start Date Expiration Date Visits Requ ested Visits Authorized [id number] Closed 12/28/2021 12/28/2022 1 1 Encounter Details Date Type Department Care Team Description 12/28/2021 Orders Only Division of Pulmonary Peng Tinajero, Pneum onitis Due To Medicine in [facility] [place] 200 [facility] Vomit (HCC) 200 [place] [phone] Social History Tobacco Use Types Packs/Day Years [...] or relatives? How often do you attend gnosticism or More than 4 times per year 02/14/2019 zoroastrianism services? Do you belong to any clubs or No 02/14/2019 organizations such as gnosticism groups, unions, fraternal or athletic groups, or [...] Laboratory Medicine Mehrdad Lazcano APRN, C.N.P. [address] [place] [address] 04/04/2022 Appointment Cardiovascular Disease Mehrdad Lazcano APRN, C.N.P. [address] [place] [address] 04/05/2022 Ancillary Procedure Cardiovascular Disease Kayla Heredia M.D. [address] [place] [phone] 04/05/2022 Appointment Cardiovascular Disease Jessa Heredia M.D. [address] [place] [phone] 04/12/2022 Clinical Communication Admitting/Central Scheduling 04/15/2022 Comprehensive Visit Cardiovascular Disease Kayla Heredia M.D. [address] [place] [phone] Scheduled Referrals Name Type Priority Associated Diagnoses Order S [facility] Pulmonary Medicine Outpatient Referral Routine Ex pected: office visit 03/01/2022 (clinic) (Approximate), Expires: 03/30/2023 documented as of this encounter Results CT Chest without IV [...] Inhalation Of Food An d Vomit (HCC) Pneumonitis Due To Inhalation Of Food An d Vomit (HCC) documented in this encounter
--- OUTSIDE RECORDS SUMMARY | 2022-03-31 20:36 | XMS_ITS | Encounter Summary ---
:1940 Author Organization [facility] Address [address] [place] [address] Care Team Providers Name Role Phone Unavailable Primary Care Provider Unavailable Reason for Visit Reason Comments Release of Information Encounter Details Date Type Department Care Team Description 03/03/2022 Clinical Division of Jessa Heredia of Communication Pulmonary Medicine Trinh Mendes Information in [address] [place] [phone] [place], [place] [phone] (Work) [phone] Social History Tobacco Use Types Packs/Day Years [...] or relatives? How often do you attend mosque or More than 4 times per year 02/14/2019 amish services? Do you belong to any clubs or No 02/14/2019 organizations such as mosque groups, unions, fraternal or athletic groups, or [...] this encounter Miscellaneous Notes Telephone Encounter - Ghassan Hernández - 03/03/2022 10:50 AM CDT Release of Information Items: [facility] To: [facility] intake Method: MERLINE Ferrell / [id number] documented in this encounter Plan of Treatment Upcoming Encounters Date Type Specialty Care Team Description 04/04/2022 Appointment Laboratory Medicine Mehrdad Lazcano APRN, C.N.P. [address] [place] [address] 04/04/2022 Appointment Cardiovascular Disease Mehrdad Lazcano APRN, C.N.P. [address] [place] [address] 04/05/2022 Ancillary Procedure Cardiovascular Disease Heredia, Stanly dominique M, M.D. [address] [place] [phone] 04/05/2022 Appointment Cardiovascular Disease Jessa Heredia M.D. [address] [place] [phone] 04/12/2022 Clinical Communication Admitting/Central Scheduling 04/15/2022 Comprehensive Visit Cardiovascular Disease Kayla Heerdia M.D. [address] [place] [phone] documented as of this encounter Visit Diagnoses Not on filedocumented in this encounter
--- OUTSIDE RECORDS SUMMARY | 2022-03-31 20:36 | XMS_ITS | Encounter Summary ---
:1940 Author Organization [facility] Address [address] [place] [id number] Care Team Providers Name Role Phone Unavailable Primary Care Provider Unavailable Reason for Referral Outpatient (Routine) - Closed Specialty Diagnoses / Procedures Referred By Contact Refer red To Contact Pulmonary Medicine Diagnoses Empyema Pleural (HCC) Maria G Adame [facility] Estela, M.S. [address] [place] [phone] Referral ID Status Reason Start Date Expiration Date Visits Requ ested Visits Authorized [id number] Closed 12/07/2021 12/07/2022 1 1 Reason for Visit Outpatient (Routine) - Closed Specialty Diagnoses / Procedures Referred By Contact Refer red To Contact Pulmonary Medicine Diagnoses Empyema [facility]) [facility] [address] [place] [phone] Referral ID Status Reason Start Date Expiration Date Visits Requ ested Visits Authorized [id number] Closed 12/07/2021 12/07/2022 1 1 Encounter Details Date Type Department Care Team Description 12/28/2021 Hospital Encounter Division of Lior, Peng Emerson Empyema Pleural Pulmonary Medicine [place] ([facility]) in [place], [address] [place], [place] [address] [place] [phone] [place], [place] [phone] (Work) [phone] Social History Tobacco Use Types Packs/Day Years [...] or relatives? How often do you attend zoroastrianism or More than 4 times per year 02/14/2019 nondenominational services? Do you belong to any clubs or No 02/14/2019 organizations such as zoroastrianism groups, unions, fraternal or athletic groups, or [...] Sign Reading Time Taken Comments Blood Pressure - - Pulse - - Temperature - - Respiratory Rate - - Oxygen Saturation 99% 12/28/2021 9:57 AM CDT Inhaled Oxygen Concentration - - Weight - - Height - - Body Mass Index - - documented in this encounter Medications at Time [...] daily. warfarin (COUMADIN) 2 1 mg on //Mon and 0 mg tablet 2 mg on ///Mon. gentamicin (GARAMYCIN) Apply 1 application 15 g 0 11/2003/02/2022 0.1 % cream topically daily. Apply to PD site hydrALAZINE Take 1 tablet (10 mg 0 12/08/2021 (APRESOLINE) 10 mg total) by mouth 3 tablet (three) times a day. Hold medication isosorbide dinitrate Take 0.5 tablets (2.5 0 11/2003/02/2022 (ISORDIL) 5 mg tablet mg total) by mouth 3 (three) times a day before meals. documented as of this encounter Progress Notes Peng Tinajero M.D. - 12/28/2021 1:30 PM CDT SUBJECTIVE CHIEF COMPLAINT/REASON FOR VISIT Followup of complicated parapneumonic effusion. HISTORY OF PRESENT ILLNESS It is my pleasure to see Mr. Castro today. He is accompanied by his . He is a delightful 81-year-old man from [place], [place], who was recently hospitalized from 12/02 to 12/08/2021, for a complicated parapneumonic effusion. A CT elsewhere on 12/01/2021, demonstrated a hydropneumothorax on the right. This was in the setting of what ultimately was felt to be an aspiration pneumonia. A pigtail catheter was placed on 2021. There was improvement in the hydropneumothorax, but his lung did not fully expand. Pleural fluid analysis demonstrated 1976 cells, 78% lymphocytes, 2% neutrophils, and 20% monocyte/macrophages. This was exudative, with a pleural fluid LDH of 343, and a total protein of 3.2 (serum 5.7). No serum LDH is available. Glucose was 46, and the pH was 7.27. Ultimately, bacterial and fungal cultures returned negative. Therefore, although there was suspicion for empyema, this was not confirmed, and this would be better termed a complicated parapneumonic effusion. There was an investigation as to why this was a hydropneumothorax. Ultimately, no specific leak was felt to be present from the abdomen (peritoneal dialysis), and my presumption is that he developed anair leak secondary to his aspiration pneumonia. He was initially treated with Zosyn and discharged on Augmentin 500- 125 mg q.d. for a total duration of antibiotics of 3 weeks post insertion of the chest tube (12/02). He did continue his antibiotics through 12/23, which was the stop date. He feels much better now. Kasihas had no recent fevers, sweats, or chills. He is fatigued, but that is improving, and he is beginning his walking program. OBJECTIVE VITAL SIGNS Saturation is 99% on room air. 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 Castro and his . I have demonstrated the series of CT scans, beginning with the pre-chest tube CT of 12/01, then the post-insertion CT of 12/03/2021, and now the current CT of 01/07/2022. I showed them the sequential coronal images which are useful to demonstrate his trapped lung features on the right side. I think the presence of air was likely related to aspiration pneumonia on 12/01/2021 with some lung to pleural space leak since he did not have a preceding thoracentesis. Currently, the visceral pleural contour is really essentially exactly as it was on12/01/2021. What was then air and fluid is now fluid. I explained to him that with trapped lung features, he would always have an effusion present, and that this represents a steady state, otherwise known as his baseline. This will be important for any other providers to know, so that he does not have unneeded recurrent thoracenteses. Should he develop increasing dyspnea, and a chest x-ray demonstrated much more fluid, then he would be a candidate for thoracentesis. If there is ever a question as to empyema, a subtotal thoracentesis could be performed because full evacuation would likely result in pneumothorax ex vacuo. Following the departure of the Matthew's, our radiologist's report was available. They do point out that he has a new ill-defined infiltrate in the left upper lobe. This is probably inflammatory, and really was not present on 12/03/2021. A followup CT of the chest would be reasonable in 6-8 weeks' time. At that time, the infiltrate hopefully will be gone. The right pleural space will likely look the same as it does now. I called Mr. Castro and he would like to have a follow-up CT scan done at [facility]. We discussed elevation of the head of the bed in detail, given his recurrent risk for aspiration pneumonia. He also is taking an antiacid pill and avoiding meals before he goes to bed. Given his achalasia, he is on a liquid diet. MARGIN CODE: E5, 50 minutes. Peng Tinajero M.D. CT CT Job ID: [id number] documented in this encounter Plan of Treatment Upcoming Encounters Date Type Specialty Care Team Description 04/04/2022 Appointment Laboratory Medicine Mehrdad Lazcano APRN, C.N.P. [address] [place] [address] 04/04/2022 Appointment Cardiovascular Disease Mehrdad Lazcano APRN, C.N.P. [address] [place] [address] 04/05/2022 Ancillary Procedure Cardiovascular Disease Kayla Heredia M.D. [address] [place] [phone] 04/05/2022 Appointment Cardiovascular Disease Jessa Heredia M.D. [address] [place] [phone] 04/12/2022 Clinical Communication Admitting/Central Scheduling 04/15/2022 Comprehensive Visit Cardiovascular Disease Kayla Heredia M.D. [address] [place] [phone] Scheduled Referrals Name Type Priority Associated Order Schedule Diagnoses Pulmonary Medicine Outpatient Referral Routine Empyema Pleural Once for 1 - Pleural Disease (HCC) Occurrence s starting consult (clinic) 12/28/2021 until 12/28/2021 documented as of this encounter Visit Diagnoses Diagnosis Empyema Pleural (HCC) documented in this encounter
--- OUTSIDE RECORDS SUMMARY | 2022-03-31 20:36 | XMS_ITS | Encounter Summary ---
:1940 Author Organization [facility] Address [address] [place] [address] Care Team Providers Name Role Phone Unavailable Primary Care Provider Unavailable Reason for Referral Outpatient (Routine) - Authorized Specialty Diagnoses / Procedures Referred By Contact Refer red To Contact Diagnoses Effusion Pericardial Acute (HCC) Chronic Systolic (Congestive) Heart Failure (HCC) Atrial Fibrillation Paroxysmal (HCC) Bundle Branch Block Left Dialysis Peritoneal Status (HCC) Mehrdad Lazcano APRN, [facility] Procedures ECG Heart rhythm monitor (Holter) C.N.P. [address] [place] [address] Referral ID Status Reason Start Date Expiration Date Visits V isits Requested Authorized [id number] Authorized 03/08/2022 03/08/2023 1 1 Reason for Visit Reason Comments Triage Encounter Details Date Type Department Care Team Description 03/02/2022 Clinical Communication Department of Hand Tube Bender, [facility][1] Cardiovascular Medicine Trinh Alcaraz in [facility] videotape sales representative [address] [place] [phone] Social History Tobacco Use Types Packs/Day Years [...] or relatives? How often do you attend alevism or More than 4 times per year 02/14/2019 congregation services? Do you belong to any clubs or No 02/14/2019 organizations such as alevism groups, unions, fraternal or athletic groups, or [...] this encounter Miscellaneous Notes Telephone Encounter - Tina Cochran - 03/09/2022 2:15 PM CDT scheduled Telephone Encounter - Mehrdad Lazcano APRN, C.N.P. - 03/08/2022 8:43 AM CDT Gen cards with labs, NT proBNP, CRP/ESR and holter very appropriate. Thank you, Mehrdad Lazcano CNP Telephone Encounter - Tana Ren R.N. - 03/07/2022 5:46 PM CDT Pre-appointment cardiology triage/record review. Information collected has not been verified by the patient. Appointment triage team does not establish a relationship with the patient. For any questions, please contact patient's primary provider. Referring Department: Pulm Clinical Question: Pericardial effusion Per referring note: I note the comment that he has a moderate pericardial effusion and I think it would be reasonable to obtain an updated echocardiogram and have him seen in Cardiology. Cardiac History: CHF Atrial Fibrillation Pericardial Effusion LBBB Aortic Stenosis, mild Pertinent Medical/Surgical History: Pleural Effusion ESRD, on dialysis Achalasia s/p Heller Myotomy ELENI HTN Anxiety Prediabetes Testing/Consultations: ECG Echo OSMR: Care Everywhere Echo 04/30/21 Final Impressions: 1. Normal left ventricular size, mildly increased wall thickness, normal global systolic function, calculated EF of 63 %. 2. Right ventricular cavity size is normal, global systolic RV function is normal. 3. Mildly enlarged left atrium. 4. The aortic valve is calcified and trileaflet, with mild stenosis and mild regurgitation. 5. The inferior vena cava is dilated, respiratory size variation greater than 50%. 6. Small inferolateral pericardial effusion. documented in this encounter Plan of Treatment Upcoming Encounters Date Type Specialty Care Team Description 04/04/2022 Appointment Laboratory Medicine Mehrdad Lazcano APRN, C.N.P. [address] [place] [phone] 04/04/2022 Appointment Cardiovascular Disease Mehrdad Lazcano APRN, C.N.PBailey [address] [place] [address] 04/05/2022 Ancillary Procedure Cardiovascular Disease Kayla Heredia M.D. [address] [place] [phone] 04/05/2022 Appointment Cardiovascular Disease Jessa Heredia M.D. [address] [place] [phone] 04/12/2022 Clinical Communication Admitting/Central Scheduling 04/15/2022 Comprehensive Visit Cardiovascular Disease Kayla Heredia M.D. [address] [place] [phone] Scheduled Orders Name Type Priority Associated Diagnoses Order S chedule CBC with Differential, Lab Routine Effusion Pericardi al Expected: Blood Acute ([facility]) 03/08/2022 Chronic Systolic (Approximat e), (Congestive) Heart Expires: Failure ([facility]) 06/08/2023 Atrial Fibrillation Paroxysmal ([facility]) Bundle Branch Block Left Dialysis Peritoneal Status ([facility]) Comprehensive Lab Routine Effusion Pericardial Expect ed: Metabolic Panel Acute ([facility]) 03/08/2022 Chronic Systolic (Approximat e), (Congestive) Heart Expires: Failure ([facility]) 06/08/2023 Atrial Fibrillation Paroxysmal ([facility]) Bundle Branch Block Left Dialysis Peritoneal Status ([facility]) NT-Pro B-Type Lab Routine Effusion Pericardial Expect ed: Natriuretic Peptide Acute ([facility]) 03/08/2022 (BNP) Chronic Systolic (Approximat e), (Congestive) Heart Expires: Failure ([facility]) 06/08/2023 Atrial Fibrillation Paroxysmal ([facility]) Bundle Branch Block Left Dialysis Peritoneal Status ([facility]) Sedimentation Rate Lab Routine Effusion Pericardial E xpected: Acute ([facility]) 03/08/2022 Chronic Systolic (Approximat e), (Congestive) Heart Expires: Failure ([facility]) 06/08/2023 Atrial Fibrillation Paroxysmal ([facility]) Bundle Branch Block Left Dialysis Peritoneal Status ([facility]) CRP (C-Reactive Lab Routine Effusion Pericardial Expe cted: Protein) Acute ([facility]) 03/08/2022 Chronic Systolic (Approximat e), (Congestive) Heart Expires: Failure ([facility]) 06/08/2023 Atrial Fibrillation Paroxysmal (HCC) Bundle Branch Block Left Dialysis Peritoneal Status (HCC) ECG Heart rhythm Cardiac Services Routine Effusion Pericardial Expected: monitor (Holter) Acute (HCC) 03/08/2022 Chronic Systolic (Approximat e), (Congestive) Heart Expires: Failure (HCC) 06/08/2023 Atrial Fibrillation Paroxysmal (HCC) Bundle Branch Block Left Dialysis Peritoneal Status (HCC) documented as of this encounter Visit Diagnoses Diagnosis 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) - Primary Effusion Pericardial Acute (HCC) Atrial Fibrillation Paroxysmal (HCC) Bundle Branch Block Left Dialysis Peritoneal Status (HCC) documented in this encounter
--- OUTSIDE RECORDS SUMMARY | 2022-03-31 20:36 | XMS_ITS | Encounter Summary ---
:1940 Author Organization [facility] Address [address] [place] [address] Care Team Providers Name Role Phone Unavailable Primary Care Provider Unavailable Encounter Details Date Type Department Care Team Description 12/27/2021 Clinical Communication Visit Review in [place], [place] [address] [place], [place] [phone] Social History Tobacco Use Types Packs/Day Years [...] or relatives? How often do you attend religion or More than 4 times per year 02/14/2019 yazidism services? Do you belong to any clubs or No 02/14/2019 organizations such as religion groups, unions, fraternal or athletic groups, or [...] Laboratory Medicine Mehrdad Lazcano APRN, C.N.P. [address] [place] [address] 04/04/2022 Appointment Cardiovascular Disease Mehrdad Lazcano APRN, C.N.P. [address] [place] [address] 04/05/2022 Ancillary Procedure Cardiovascular Disease Kayla Heredia M.D. [address] [place] [phone] 04/05/2022 Appointment Cardiovascular Disease Jessa Heredia M.D. [address] [place] [phone] 04/12/2022 Clinical Communication Admitting/Central Scheduling 04/15/2022 Comprehensive Visit Cardiovascular Disease Kayla Heredia M.D. [address] [place] [phone] documented as of this encounter Visit Diagnoses Not on filedocumented in this encounter
--- OUTSIDE RECORDS SUMMARY | 2022-03-31 20:36 | XMS_ITS | Encounter Summary ---
:1940 Author Organization [facility] Address [address] [place] [address] Care Team Providers Name Role Phone Unavailable Primary Care Provider Unavailable Reason for Visit Reason Comments Med Refill Encounter Details Date Type Department Care Team Description 01/26/2022 Refill [facility], Estela Cummins, Med Refill [facility], [facility] [address] [place] [address] [place] [phone] [place] [phone] Social History Tobacco Use Types Packs/Day Years [...] or relatives? How often do you attend oriental orthodox or More than 4 times per year 02/14/2019 sikh services? Do you belong to any clubs or No 02/14/2019 organizations such as oriental orthodox groups, unions, fraternal or athletic groups, or [...] Laboratory Medicine Mehrdad Lazcano APRN, C.N.P. [address] [place] [address] 04/04/2022 Appointment Cardiovascular Disease Mehrdad Lazcano APRN, C.N.P. [address] [place] [address] 04/05/2022 Ancillary Procedure Cardiovascular Disease Kayla Heredia M.D. [address] [place] [phone] 04/05/2022 Appointment Cardiovascular Disease Jessa Heredia M.D. [address] [place] [phone] 04/12/2022 Clinical Communication Admitting/Central Scheduling 04/15/2022 Comprehensive Visit Cardiovascular Disease Kayla Heredia M.D. [address] [place] [phone] documented as of this encounter Visit Diagnoses Not on filedocumented in this encounter
--- OUTSIDE RECORDS SUMMARY | 2022-03-31 20:36 | XMS_ITS | Encounter Summary ---
:1940 Author Organization [facility] Address [address] [place] [address] Care Team Providers Name Role Phone Unavailable Primary Care Provider Unavailable Reason for Visit Auth/Cert Specialty Diagnoses / Procedures Referred By Contact Refer red To Contact Diagnoses Hematemesis Hematemesis on Coumadin Procedures DIR Referral ID Status Reason Start Date Expiration Date Visits Requ ested Visits Authorized [id number] 1 1 Encounter Details Date Type Department Care Team Description 12/10/2021 Anesthesia Event Division of Gastroenterology Jamel Powres in [facility] bret Shah, USER EXPERIENCE ARCHITECT, WORKERS COMPENSATION CLAIMS ADJUSTER, [address] [place] [address] [phone] [place] [address] [place] [address] Anesthesia Record Procedure Summary Procedure Name Responsible Anesthesia Start Anesthesia Stop Time Anesthesiologist Time EGD Jamel Powers APRN, 12/10/21 1210 2 1256 (ESOPHAGEALGASTRODU WORKERS COMPENSATION CLAIMS ADJUSTER, [facility] ODENOSCOPY) Events Date Time Event Comment 12/10/2021 1210 An Start Machine/Equipmen t Checked Infection Precautions Foll owed Procedure/Site Verified NPO Sta tus Verified Supine Standard ASA Mon itors Applied 1215 An Induction 1218 An Intubation 1219 Turnover to Proceduralist 1226 Proc Start 1243 Proc Fin 1246 Turnover to ANE Staff 1251 Airway Removal Criteria Met 1251 Extubation/Airway Removed 1251 an stop data 1256 An End I completed my h andoff to the receiving staff during i ch we 1. Identified the patient 2. Ident ified the responsible provider 3. Revi ewed the pertinent medical history 4. Discussed the surgical course 5. Review ed intra-op anesthesia management and i ssues during anesthesia 6. Set expectati ons for post-procedure period 7. Allowe d opportunity for questions and ac knowledgement of understanding. Name Total fentanyl injection 50 mcg/mL 50 mcg lidocaine 2% (mg) injection 100 mg propofol 10 mg/mL 200 mg succinylcholine 20 mg/mL injection 140 mg phenylephrine 100 mcg/mL injection 600 mcg ePHEDrine PF 5 mg/mL syringe injection 20 mg ondansetron 4 mg/2 mL injection 4 mg lactated ringers free drip 300 mL Agents No agents on file. Blood No blood administrations on file. Lines, Drains, and Airways Type Details Placement Removal Peritoneal Dialysis Other (Comment); Right 12/02/21 0837 by Catheter lower abdomen Wound 12/02/21; 0000; Y; Skin 12/02/21 0000 by 2 1137 by tear Type 2 (partial Dinah Hayden, Eulogio Nicole, flap loss); Anterior, R.N. R.N. Left, Lower; 12/11/21; 1137 Peripheral IV Placement Date: 12/09/21 1400 by 12/11/21 1136 b y 12/09/21; Placement Janeth Nicole, Eulogio Nicole, Time: 1400; Existing R.N. R.N. LDA Placed by: Other hospital; Orientation: Left; Location: Antecubital; Removal Date: 12/11/21; Removal Time: 1136 ETT Placement Date: 12/10/21 1218 by 12/10/21 1251 b y 12/10/21; Placement Bassam Hunt Roesner, Justin C, Time: 1218 (created via USER EXPERIENCE ARCHITECT, WORKERS COMPENSATION CLAIMS ADJUSTER, D.N.P. USER EXPERIENCE ARCHITECT, WORKERS COMPENSATION CLAIMS ADJUSTER, DNAP procedure documentation); Mask Ventilation: Not attempted; Type: Standard ETT; Single Lumen Tube Size: 7.5 mm; Cuffed: Yes; Location: Oral; Grade View: Grade 1; Insertion Attempts: 1; Placement Verification: Bilateral breath sounds, Positive ETCO2, Symmetrical chest wall movement; Removal Date: 12/10/21; Removal Time: 1251 documented in this encounter Social History Tobacco Use Types Packs/Day Years [...] or relatives? How often do you attend hindu or More than 4 times per year 02/14/2019 voodoo services? Do you belong to any clubs or No 02/14/2019 organizations such as hindu groups, unions, fraLinty Finance or athletic groups, or school groups? How [...] on file documented as of this encounter OR Notes Anesthesia Postprocedure Evaluation - Jamel Powers, USER EXPERIENCE ARCHITECT, WORKERS COMPENSATION CLAIMS ADJUSTER, DNAP - 12/10/2021 7:23 PM CDT Patient: David Castro Procedure Summary Date: 12/10/21 Room / Location: Division of Gastroenterology in [place], [place] Anesthesia Start: 1210 Anesthesia Stop: 1256 Procedure: EGD (ESOPHAGEALGASTRODUODENOSCOPY) Diagnosis: Scheduled Providers: Toby Banerjee M.B.B.S. Responsible Provider: Jamel Powers APRN, CRNA, DNAP Anesthesia Type: general ASA Status: 3 Anesthesia Type: general Last vitals Vitals Value Taken Time BP 124/69 12/10/21 1305 Temp 36.8 ??C 12/10/21 1255 Pulse 93 12/10/21 1306 Resp 18 12/10/21 1306 SpO2 98 % 12/10/21 1306 Vitals shown include unvalidated device data. Please reference Vitals flowsheet for most recent vital signs. Anesthesia Post Evaluation Patient Disposition: general care unit Cardiovascular status: hemodynamics (HR & BP) acceptable Respiratory status: patent airway with spontaneous effort Temperature: normothermic Oxygen requirements: room air Level of consciousness: awake Pain score: pain adequately controlled and/or at baseline Post Op nausea/vomiting: none Hydration status: euvolemic Anesthesia Procedure Notes - Bassam Hunt APRN, CRNA, D.N.P. - 12/10/2021 12:25 PM CDTAssociated Order(s): Airway Airway Date/Time: 12/10/2021 12:18 PM Performed by: Bassam Hunt APRN, CRNA, D.N.P. Authorized by: Bassam Hunt APRN, CRNA, D.N.P. Patient location during procedure: OR / Procedure Area PROCEDURE DETAILS: Mask difficulty assessment: not attempted Final airway type: video laryngoscope Laryngeal manipulation: yes (RSI w/ cricoid pressure.) Final best view of glottic structures - Cormack/Lehane Score: grade 1 ETT location: oral VL device: glide scope Amity scope blade size: 3 Adult tube size: 7.5 Adult ETT distance at teeth/gum: 23 Oral tube type: standard ETT Cuffed: yes Number of attempt to successful placement: 1 Airway confirmation: bilateral breath sounds, positive ETCO2 and bilateral chest rise Other previous techniques attempted: none CONSENT Consent obtained: verbal Consent given by: patient The benefits, risks and alternatives to the procedure and the potential need for sedation or anesthesia as well as the names, roles, and responsibilities of healthcare team members performing significant interventional tasks were discussed with the patient and/or decision maker. UNIVERSAL PROTOCOL All relevant documentation and testing were reviewed and available. All required blood products, implants, devices and or special equipment were made available as applicable. Pre-procedure verificationwas conducted and the correct site was marked if required. A fire risk assessment was done as applicable. The procedural time-out was conducted prior to performing the procedure and confirmed in a procedural pause. PRE PROCEDURE DETAILS: Pre evaluation for airway management: procedure Urgency: elective Preop assessment of probable difficulty: anticipated / known difficult airway Preoxygenation: bag valve mask SEDATION / ANESTHESIA Anesthesia method: anesthesia POST PROCEDURE DETAILS: Procedure outcome: successful Airway event: no complications ATTESTATION STATEMENT Anesthesia Preprocedure Evaluation - Bassam Hunt APRN, CRNA, D.N.P. - 12/10/2021 12:08 PM CDT Preprocedure Anesthesia & H&P Assessment Procedure Summary Anesthesia Start Date/Time: 12/10/21 1210 Scheduled providers: Toby Banerjee M.B.B.S. Procedure: EGD (ESOPHAGEALGASTRODUODENOSCOPY) Location: Division of Gastroenterology in [place], [place] Pertinent components of the patient's history including current problem list, medical history, surgical history, family history, social history, medications and allergies were reviewed. Present illnessand pre-op diagnosis were confirmed. The planned surgery / procedure was verified with the patient /legal guardian. The patient's general health condition remains unchanged RELEVANT COMORBID CONDITIONS CV (+) Atrial Fibrillation Paroxysmal (HCC) (+) Bundle Branch Block Left (+) Chronic Systolic (Congestive) Heart Failure (HCC) (+) Hypertension And End Stage Renal Disease (HCC) RENAL/REPRO (+) Hypertension And End Stage Renal Disease (HCC) NEURO (+) Seizure Partial (HCC) GENETICS (+) Gout (+) Hypoalbuminemia HEME (+) Anemia In Chronic Kidney Disease OBJECTIVE PHYSICAL EXAMINATION Airway (HEENT) Mallampati: II TM Distance: >3 FB Neck ROM: Full Mouth Opening: <3 cm Cardiovascular Rhythm: Regular Rate: Normal Functional Capacity: <4 METS Pulmonary Pulmonary Assessment: Diminished General / Constitutional General State of Health:: calm Neurological Neurologic Assessment:??alert Dental Dental Assessment: dentition in poor repair ASSESSMENT / PLAN ANESTHESIA PLAN ASA: 3 Anesthesia Plan: general Patient seen and allergies reviewed, anesthesia plan and risks discussed directly with patient /legal guardian or through an passenger tire builder. Risks/Benefits/Alternatives of Blood transfusion discussed with patient / legal guardian, including an opportunity to ask questions and/or decline some or all transfusion therapies. The patient / legalguardian consented to the use of all blood products, as deemed medically necessary Approval to Proceed: approved for anesthesia documented in this encounter Plan of Treatment Upcoming Encounters Date Type Specialty Care Team Description 04/04/2022 Appointment Laboratory Medicine Mehrdad Lazcano APRN, C.N.P. [address] [place] [address] 04/04/2022 Appointment Cardiovascular Disease Mehrdad Lazcano APRN, C.N.P. [address] [place] [address] 04/05/2022 Ancillary Procedure Cardiovascular Disease Kayla Heredia M.D. [address] [place] [phone] 04/05/2022 Appointment Cardiovascular Disease Jessa Heredia M.D. [address] [place] [phone] 04/12/2022 Clinical Communication Admitting/Central Scheduling 04/15/2022 Comprehensive Visit Cardiovascular Disease Kayla Heredia M.D. [address] [place] [phone] documented as of this encounter Procedures Procedure Name Priority Date/Time Associated Comments Diagnosis LDA ANE ENDOTRACHEAL Routine 12/10/2021 12:18 Res ults for this AIRWAY PM CDT procedure are i n the results section. documented in this encounter Results LDA ANE ENDOTRACHEAL AIRWAY (12/10/2021 12:18 PM CDT) Narrative Bassam Hunt APRN, CRNA, D.N.P. - 12/10/2021 12:18 PM CDT Bassam Hunt APRN, CRNA D.N.P. ? 12/10/2021 12:31 PM Airway Date/Time: 12/10/2021 12:18 PM Performed by: Bassam Hunt APRN, CRNA, D.N.P. Authorized by: Bassam Hunt APRN, CRNA, D.N.P. Patient location during procedure: OR / Procedure Area PROCEDURE DETAILS: Mask difficulty assessment: not attempte d Final airway type: video laryngoscope Laryngeal manipulation: yes (RSI w/ cric oid pressure.) Final best view of glottic structures - Cormack/Lehane Score: grade 1 ETT location: oral VL device: glide scope Amity scope blade size: 3 Adult tube size: 7.5 Adult ETT distance at teeth/gum: 23 Oral tube type: standard ETT Cuffed: yes Number of attempt to successful placemen t: 1 Airway confirmation: bilateral breath so unds, positive ETCO2 and bilateral chest rise Other previous techniques attempted: non e CONSENT Consent obtained: verbal Consent given by: patient The benefits, risks and alternatives to the procedure and the potential need for sedation or anesthesia as well as the names, roles, and responsibilities of healthcare team memb ers performing significant interventional tasks were discussed with the patient and/or decision maker. UNIVERSAL PROTOCOL All relevant documentation and testing w ere reviewed and available. All required blood products, implants, devic es and or special equipment were made available as applicable. Pre-proced ure verification was conducted and the correct site was marked if required. A fire risk assessment was done as applicable. The procedural time-out w as conducted prior to performing the procedure and confirmed in a procedu ral pause. PRE PROCEDURE DETAILS: Pre evaluation for airway management: pr ocedure Urgency: elective Preop assessment of probable difficulty: anticipated / known difficult airway Preoxygenation: bag valve mask SEDATION / ANESTHESIA Anesthesia method: anesthesia POST PROCEDURE DETAILS: ? Procedure outcome: successful ?? Airway event: no complications ATTESTATION STATEMENT Bassam Hunt APRN, WORKERS COMPENSATION CLAIMS ADJUSTER, D.N.P. ANESTHESIA ORDERA BLES documented in this encounter Visit Diagnoses Not on filedocumented in this encounter Administered Medications Inactive Administered Medications - up to 3 most recent administrations Medication Order MAR Action Action Date Dose Rate Site ePHEDrine (PF) injection Given 12/10/2021 12:34 PM CDT 10 mg intravenous, As needed, Starting on Mon12/10/21 at 1221, Anesthesia Intra-op Given 12/10/2021 12:21 PM CDT 10 mg fentaNYL injection (SUBLIMAZE) Given 12/10/2021 12:15 PM CDT 50 mcg intravenous, As needed, Starting on Mon12/10/21 at 1215, Anesthesia Intra-op lactated ringers New Bag 12/10/2021 12:10 PM CDT intravenous, Continuous Infusion: Per Instructions PRN, Starting on Mon12/10/21 at 1210, Anesthesia Intra-op lidocaine (PF) (cardiac) injection Given 12/10/2021 12:15 PM CDT 100 mg intravenous, As needed, Starting on Mon12/10/21 at 1215, Anesthesia Intra-op ondansetron (PF) injection (ZOFRAN) Given 12/10/2021 12:39 PM CDT 4 mg intravenous, As needed, Starting on Mon12/10/21 at 1239, Anesthesia Intra-op phenylephrine injection Given 12/10/2021 12:40 PM CDT 200 mcg intravenous, As needed, Starting on Mon12/10/21 at 1219, Anesthesia Intra-op Given 12/10/2021 12:21 PM CDT 200 mcg Given 12/10/2021 12:19 PM CDT 200 mcg propofoL injection (DIPRIVAN) Given 12/10/2021 12:10 PM CDT 200 mg intravenous, As needed, Starting on Mon12/10/21 at 1210, Anesthesia Intra-op succinylcholine (PF) injection (ANECTINE ) Given 12/10/2021 12:18 PM CDT 140 mg intravenous, As needed, Starting on Mon12/10/21 at 1218, Anesthesia Intra-op documented in this encounter
--- OUTSIDE RECORDS SUMMARY | 2022-03-31 20:36 | XMS_ITS | Encounter Summary ---
:1940 Author Organization [facility] Address [address] [place] [id number] Care Team Providers Name Role Phone Unavailable Primary Care Provider Unavailable Reason for Visit MRI/CAT/PET Scan (Routine) - Modified Order Specialty Diagnoses / Procedures Referred By Contact Refer red To Contact Radiology Diagnoses Empyema Pleural (HCC) Maria G Adame P.A.-C., [facility] Procedures CT Chest without IV Contrast CT Chest with IV Contrast [facility] [address] [place] [phone] Referral ID Status Reason Start Date Expiration Date Visits V isits Requested Authorized [id number] Modified 12/07/2021 12/07/2022 1 1 Order Encounter Details Date Type Department Care Team Description 12/28/2021 Hospital Encounter Department of Maria G Adame, Empyem a Pleural (HCC) Radiology, [facility] [place], [facility], in [address] [place] [address] [place] [phone] [place], [place] [phone] (Work) [phone] Social History Tobacco Use Types Packs/Day Years [...] or relatives? How often do you attend jewish or More than 4 times per year 02/14/2019 mandaen services? Do you belong to any clubs or No 02/14/2019 organizations such as jewish groups, unions, fraWindsor Circle or athletic groups, or school groups? How [...] before meals. documented as of this encounter Plan of Treatment Upcoming Encounters Date Type Specialty Care Team Description 04/04/2022 Appointment Laboratory Medicine Mehrdad Lazcano APRN, C.N.P. [address] [place] [address] 04/04/2022 Appointment Cardiovascular Disease Mehrdad Lazcano APRN, C.N.P. [address] [place] [address] 04/05/2022 Ancillary Procedure Cardiovascular Disease Kayla Heredia M.D. [address] [place] [phone] 04/05/2022 Appointment Cardiovascular Disease Jessa Heredia M.D. [address] [place] [phone] 04/12/2022 Clinical Communication Admitting/Central Scheduling 04/15/2022 Comprehensive Visit Cardiovascular Disease Kayla Heredia M.D. [address] [place] [phone] documented as of this encounter Procedures Procedure Name Priority Date/Time Associated Comments Diagnosis CT CHEST WITHOUT RAD - Routine 12/28/2021 8:29 Empyema Pleural Resu lts for this IV CONTRAST (most inpatients AM CDT (HCC) procedure a re in and all the results outpatients) section. documented in this encounter Results CT Chest without IV Contrast (12/28/2021 8:29 AM CDT) Anatomical Region Laterality Modality Chest, Thoracic RST LOS, Thoracic ARZ N/A Co mputed Tomography, Computed LOS, Thoracic FLA LOS Tomography Specimen (Source) Anatomical Collection Method Collection Time Re ceived Time Location / / Volume Laterality 12/28/2021 8:39 AM CDT Impressions 12/28/2021 10:09 AM CDT 1. New ill-defined consolidation in the left upper lobe and lingula, may represent a new superimposed infectious/inflammatory pro cess. 2. Interval increase in size of the smal l right pleural effusion with persistent few locules of gas. 3. Mild increase in small pericardial ef fusion. Narrative 12/28/2021 10:09 AM CDT EXAM: CT CHEST WITHOUT IV CONTRAST COMPARISON: CT chest 12/03/2021, 022 FINDINGS: New ill-defined consolidations in the le ft upper lobe and lingula. Interval removal of right pleural chest tube and interval increase in size of the now small layering right basilar pleural effusion with associated compressive atelectasis or rounded atelectasis within the right lower lobe. There is associated pleural thickening, suggestin g an exudative effusion. A few locules of gas are present within the right pleural effusion, decre ased from the prior study. Trace left basilar effusion and atelectasis. Scattered mild bronchial wa ll thickening. Central tracheobronchial airways are patent. Calcified pulmonary granuloma. Patulous fluid-filled esophagus. Stable prominent mediastinal lymph nodes. Small pericardial effusion, which has slightly increased i n size. Severe coronary artery calcifications. Aortic and mitral annular calcifications. Thoracic aortic calcified atheromatous plaques. A small amount of free intraperitoneal g as is consistent with history of peritoneal dialysis. Bilateral atrophic kidneys. 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 Procedure Note Jamal Mazariegos M.D., Ph.D. - 12/28/2021 EXAM: CT CHEST WITHOUT IV CONTRAST COMPARISON: CT chest 12/03/2021, 022 FINDINGS: New ill-defined consolidations in the le ft upper lobe and lingula. Interval removal of right pleural chest tube and interval increase in size of the now small layering right basilar pleural effusion with associated compressive atelectasis or rounded atelectasis within the right lower lobe. There is associated pleural thickening, suggestin g an exudative effusion. A few locules of gas are present within the right pleural effusion, decre ased from the prior study. Trace left basilar effusion and atelectasis. Scattered mild bronchial wa ll thickening. Central tracheobronchial airways are patent. Calcified pulmonary granuloma. Patulous fluid-filled esophagus. Stable prominent mediastinal lymph nodes. Small pericardial effusion, which has slightly increased i n size. Severe coronary artery calcifications. Aortic and mitral annular calcifications. Thoracic aortic calcified atheromatous plaques. A small amount of free intraperitoneal g as is consistent with history of peritoneal dialysis. Bilateral atrophic kidneys. 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 IMPRESSION: 1. New ill-defined consolidation in the left upper lobe and lingula, may represent a new superimposed infectious/inflammatory pro cess. 2. Interval increase in size of the smal l right pleural effusion with persistent few locules of gas. 3. Mild increase in small pericardial ef fusion. Maria G Adame P.A.-C., M.S. IMG CT PROCEDURES documented in this encounter Visit Diagnoses Diagnosis Empyema Pleural (HCC) documented in this encounter
--- OUTSIDE RECORDS SUMMARY | 2022-03-31 20:36 | XMS_ITS | Encounter Summary ---
:1940 Author Organization [facility] Address [address] [place] [address] Care Team Providers Name Role Phone Unavailable Primary Care Provider Unavailable Reason for Referral Outpatient (Routine) - Authorized Specialty Diagnoses / Procedures Referred By Contact Refer red To Contact Diagnoses Effusion Pericardial Acute (HCC) Jessa Heredia M.D. [facility] Procedures Echo Transthoracic (TTE) [address] [place] [phone] Referral ID Status Reason Start Date Expiration Date Visits V isits Requested Authorized [id number] Authorized 03/02/2022 03/02/2023 1 1 Outpatient (Routine) - Authorized Specialty Diagnoses / Procedures Referred By Contact Refer red To Contact Diagnoses Effusion Pericardial Acute (HCC) Jessa Heredia M.D. [facility] Procedures ECG 12 Lead [address] [place], [place] [phone] Referral ID Status Reason Start Date Expiration Date Visits V isits Requested Authorized [id number] Authorized 03/02/2022 03/02/2023 1 1 Outpatient (Routine) - Authorized Specialty Diagnoses / Procedures Referred By Contact Refer red To Contact Cardiovascular Diseases / Diagnoses Effusion Pericardial Acute (HCC) Jessa Heredia [facility] Cardiovascular Disease [place] [address] [place] [address] Referral ID Status Reason Start Date Expiration Date Visits V isits Requested Authorized [id number] Authorized 03/02/2022 03/02/2023 1 1 Encounter Details Date Type Department Care Team Description 03/02/2022 Orders Only Division of Pulmonary Jessa Heredia, Effusion Pericardial Medicine in [place] Acute (HCC) (Primary [place], [place] [address] [facility]) [address] [place] [phone] Social History Tobacco Use Types Packs/Day Years [...] or relatives? How often do you attend advent or More than 4 times per year 02/14/2019 zoroastrianism services? Do you belong to any clubs or No 02/14/2019 organizations such as advent groups, unions, fraternal or athletic groups, or [...] Laboratory Medicine Mehrdad Lazcano APRN, C.N.P. [address] [place] [address] 04/04/2022 Appointment Cardiovascular Disease Mehrdad Lazcano APRN, C.N.P. [address] [place] [address] 04/05/2022 Ancillary Procedure Cardiovascular Disease Kayla Heredia M.D. [address] [place] [phone] 04/05/2022 Appointment Cardiovascular Disease Jessa Heredia M.D. [address] [place] [phone] 04/12/2022 Clinical Communication Admitting/Central Scheduling 04/15/2022 Comprehensive Visit Cardiovascular Disease Kayla Heredia M.D. [address] [place] [phone] Scheduled Orders Name Type Priority Associated Diagnoses Order S chedule ECG 12 Lead ECG Routine Effusion Pericardial Expecte d: Acute (HCC) 03/02/2022 (Approximate), Expires: 06/02/2023 Echo Transthoracic Echocardiography Routine Effusion Pericardi al Expected: (TTE) Acute ([facility]) 03/02/2022 (Approximate), Expires: 06/02/2023 Scheduled Referrals Name Type Priority Associated Order Schedule Diagnoses Cardiovascular Disease Outpatient Routine Effusion Expec herminia: - General cardiology Referral Pericardial Acute consult (clinic) ([facility]) (Approximat e), Expires: 06/02/2023 documented as of this encounter Visit Diagnoses Diagnosis Effusion Pericardial Acute ([facility]) - Prima ry documented in this encounter
--- OUTSIDE RECORDS SUMMARY | 2022-03-31 20:36 | XMS_ITS | Encounter Summary ---
:1940 Author Organization [facility] Address [address] [place] [address] Care Team Providers Name Role Phone Unavailable Primary Care Provider Unavailable Reason for Referral Outpatient (Routine) - Closed Specialty Diagnoses / Procedures Referred By Contact Refer red To Contact Pulmonary Medicine Peng Tinajero M.D. [address] [phone] Referral ID Status Reason Start Date Expiration Date Visits Requ ested Visits Authorized [id number] Closed 12/28/2021 12/28/2022 1 1 Scheduling Instructions F/U pleural clinic. I am happy to see bu t if this doesn't work out he can be seen in pleural clinic. Reason for Visit Outpatient (Routine) - Closed Specialty Diagnoses / Procedures Referred By Contact Refer red To Contact Pulmonary Medicine Peng Tinajero M.D. [address] [phone] Referral ID Status Reason Start Date Expiration Date Visits Requ ested Visits Authorized [id number] Closed 12/28/2021 12/28/2022 1 1 Encounter Details Date Type Department Care Team Description 03/02/2022 Hospital Encounter Division of Jessa Heredia Pleural Pulmonary Medicine Trinh Mendes (Primary Dx) in [address] [place] [phone] [place], [place] [phone] (Work) [phone] Social History Tobacco Use Types Packs/Day Years [...] or relatives? How often do you attend moravian or More than 4 times per year 02/14/2019 nondenominational services? Do you belong to any clubs or No 02/14/2019 organizations such as moravian groups, unions, fraternal or athletic groups, or [...] ??F) 03/02/2022 11:16 AM CDT Respiratory Rate - - Oxygen Saturation 98% 03/02/2022 11:16 AM CDT Inhaled Oxygen Concentration - - Weight 78.5 kg (173 lb 1 oz) 03/02/2022 11:16 AM CDT Height 172.2 cm (5' 7.8) 03/02/2022 11:16 AM CDT Body Mass Index 26.47 03/02/2022 11:16 AM CDT documented in this encounter Medications at Time [...] on ///Mon. documented as of this encounter Progress Notes Jessa Heredia M.D. - 03/02/2022 1:00 PM CDT SUBJECTIVE HISTORY OF PRESENT ILLNESS David Castro is a 81 y.o. male who presents today for follow up of a recent history of complicated parapneumonic effusion in November 2021 which required drainage with a pigtail catheter and leftupper lobe infiltrates seen on CT chest December 2021. Since his last visit he has been feeling well and has no pulmonary concerns today. CT chest today shows resolution of the HARSH opacities that were seen in December 2021. The right pleural effusion and area of rounded atelectasis in the RLL appears stable. There is comment made of a moderate size pericardial effusion. REVIEW OF SYSTEMS Negative except as noted above in HPI. OBJECTIVE Physical Exam: General: Pleasant gentleman. Answers questions appropriately. In no distress. Heart: Irregular rhythm. Lungs: Diminished in the right base. Otherwise clear. Extremities: No LE edema. 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 Castro is doing very well. His CT today is reassuring as the HARSH infiltrates have essentially resolved and the other pulmonary findings are stable. I note the comment that he has a moderate pericardial effusion and I think it would be reasonable to obtain an updated echocardiogram and have him seen in Cardiology. The care management plan was discussed in detail with him. He verbalized understanding and agreementwith the plan. PATIENT EDUCATION Ready to learn, no apparent learning barriers were identified; learning preferences include listening. Explained diagnosis and treatment plan; patient expressed understanding of the content. documented in this encounter Plan of Treatment Upcoming Encounters Date Type Specialty Care Team Description 04/04/2022 Appointment Laboratory Medicine Mehrdad Lazcano APRN, C.N.P. [address] [address] 04/04/2022 Appointment Cardiovascular Disease Mehrdad Lazcano APRN, C.N.P. [address] [address] 04/05/2022 Ancillary Procedure Cardiovascular Disease Kayla Heredia M.D. [address] [place] [phone] 04/05/2022 Appointment Cardiovascular Disease Jessa Heredia M.D. 200 [place] [phone] 04/12/2022 Clinical Communication Admitting/Central Scheduling 04/15/2022 Comprehensive Visit Cardiovascular Disease Kayla Heredia M.D. 200 [place] [phone] Scheduled Referrals Name Type Priority Associated Order Schedule Diagnoses Pulmonary Medicine Outpatient Referral Routine On ce for 1 office visit Occurrences sta rting (clinic) 03/02/2022 unti l 03/02/2022 documented as of this encounter Visit Diagnoses Diagnosis Effusion Pleural - Primary documented in this encounter
--- OUTSIDE RECORDS SUMMARY | 2022-03-31 20:36 | XMS_ITS | Encounter Summary ---
:1940 Author Organization [facility] Address [address] [place] [address] Care Team Providers Name Role Phone Unavailable Primary Care Provider Unavailable Encounter Details Date Type Department Care Team Description 12/10/2021 Ancillary Procedure Department of Gastroenterology Social History Tobacco Use Types Packs/Day Years [...] or relatives? How often do you attend amish or More than 4 times per year 02/14/2019 synagogue services? Do you belong to any clubs or No 02/14/2019 organizations such as amish groups, unions, fraternal or athletic groups, or [...] Laboratory Medicine Mehrdad Lazcano APRN, C.N.P. [address] [place] [address] 04/04/2022 Appointment Cardiovascular Disease Mehrdad Lazcano APRN, C.N.P. [address] [place] [address] 04/05/2022 Ancillary Procedure Cardiovascular Disease Kayla Heredia M.D. [address] [place] [phone] 04/05/2022 Appointment Cardiovascular Disease Jessa Heredia M.D. [address] [place] [phone] 04/12/2022 Clinical Communication Admitting/Central Scheduling 04/15/2022 Comprehensive Visit Cardiovascular Disease Kayla Heredia M.D. [address] [place] [address] documented as of this encounter Procedures Procedure Name Priority Date/Time Associated Comments Diagnosis GASTROENTEROLOGY IMAGE Routine 12/10/2021 11:55 R esults for this EXAM AM CDT procedure are i n the results section. documented in this encounter Results Upper GI endoscopy-Gastroenterology Image Exam (12/10/2021 11:55 AM CDT) Specimen (Source) Anatomical Collection Method Collection Time Re ceived Time Location / / Volume Laterality 12/10/2021 11:53 AM CDT Narrative [facility] - 12/10/2021 3:29 PM CDT This order has been created and auto-finalized to support the import of images acquired without order. The clini mathew documentation to support these images can be found on the encounter duglas t produced images. Provider Not In System IMG NON RAD IMAGING PROCEDUR ES Performing Organization Address City/State/ZIP Code Phon e Number [facility] NA documented in this encounter Visit Diagnoses Not on filedocumented in this encounter
--- OUTSIDE RECORDS SUMMARY | 2022-03-31 20:37 | XMS_ITS | Encounter Summary ---
:1940 Author Organization [facility] Address [address] [place] [address] Care Team Providers Name Role Phone Unavailable Primary Care Provider Unavailable Encounter Details Date Type Department Care Team Description 02/18/2019 Anesthesia Event Division of Stas Blevins APRN, IMPORT CLERK [address] [place] [address] [facility] [address] [place] [address] [place], [place] [address] [place] [phone] Anesthesia Record Procedure Summary Procedure Name Responsible Anesthesia Start Anesthesia Stop Anesthesiologist Time Time EGD Juan Pablo Blevins APRN, 02/18/19 1536 02/18 1615 (ESOPHAGOGASTRODUODE IMPORT CLERK NOSCOPY) RESTRICTED Events Date Time Event Comment 02/18/2019 1444 1536 An Start Machine/Equipmen t Checked Infection Precautions Foll owed Procedure/Site Verified NPO Sta tus Verified Supine Standard ASA Mon itors Applied 1544 In Room 1552 Turnover to Proceduralist 1553 Proc Start 1604 Proc Fin 1605 Turnover to ANE Staff 1609 Out of Room 1611 an stop data 1615 An End I completed my h andoff to the receiving staff during [facility] ch we 1. Identified the patient 2. Ident ified the responsible provider 3. Revi ewed the pertinent medical history 4. Discu ssed the surgical course 5. Reviewed intra-o p anesthesia management and issues during an esthesia 6. Set expectations for post-procedure period 7. Allowed opportun ity for questions and acknowledgement of understanding. Name Total fentanyl injection 50 mcg/mL 50 mcg lidocaine 2% (mg) injection 40 mg propofol 10 mg/mL injection 30 mg propofol 10 mg/mL infusion 148.92 mg Lactated Ringers Free Drip 200 mL Agents No agents on file. Blood No blood administrations on file. Lines, Drains, and Airways Type Details Placement Removal Peripheral IV Placement Date: 02/18/19; 02/18/191432 by Leana , 02/18/19 1705 by Placement Time: 1433; Antwan Polo Devon R, Catheter Size: 22 G; R.N. Orientation: Right; Location: Hand; Removal Date: 02/18/19; Removal Time: 1704; Removal Reason: Patient discharged documented in this encounter Social History Tobacco Use Types Packs/Day Years Used Date Smoking Tobacco: Never Social Isolation Answer Date Recorded In a typical week, how many times do you Once a week 02/14/2019 talk on the phone with family, friends, or neighbors? How often do you get together with friends More than three t imes a week 02/14/2019 or relatives? How often do you attend jehovah's witness or More than 4 times per year 02/14/2019 mormon services? Do you belong to any clubs or No 02/14/2019 organizations such as jehovah's witness groups, unions, fraternal or athletic groups, or [...] encounter OR Notes Anesthesia Postprocedure Evaluation - Juan Pablo Blevins APRN, CRNA - 02/18/2019 4:15 PM CDT Patient: David Castro Procedure Summary Date: 02/18/19 Room / Location: Division of Gastroenterology in [place], [place] Anesthesia Start: 1536 Anesthesia Stop: 1615 Procedure: EGD (ESOPHAGOGASTRODUODENOSCOPY) RESTRICTED Diagnosis: Achalasia Scheduled Providers: Juan Pablo Blevins APRN, CRNA Responsible Provider: Juan Pablo Blevins APRN, CRNA Anesthesia Type: MAC ASA Status: 3 Anesthesia Type: MAC Last vitals Vitals Value Taken Time BP 123/64 02/18/2019 4:14 PM Temp 36.4 ??C 02/18/2019 4:14 PM Pulse 85 02/18/2019 4:15 PM Resp 24 02/18/2019 4:15 PM SpO2 95 % 02/18/2019 4:15 PM Vitals shown include unvalidated device data. Please reference Vitals flowsheet for most recent vital signs. Anesthesia Post Evaluation Patient Disposition: dismissal Cardiovascular status: hemodynamics (HR & BP) acceptable Respiratory status: patent airway with spontaneous effort Temperature: normothermic Oxygen requirements: room air Level of consciousness: awake Pain score: pain adequately controlled and/or at baseline Post Op nausea/vomiting: none Hydration status: euvolemic Anesthesia Preprocedure Evaluation - Ricardo Soto M.D. - 02/18/2019 2:41 PM CDT Preprocedure Anesthesia & H&P Assessment Pertinent components of the patient's history including current problem list, medical history, surgical history, family history, social history, medications and allergies were reviewed. Present illnessand pre-op diagnosis were confirmed. The planned surgery / procedure was verified with the patient /legal guardian. The patient's general health condition remains unchanged PROBLEM LIST Relevant Problems RENAL/REPRO (+) Chronic Kidney Disease Stage 4 Glomerular Filtration Rate 15-29 (HCC) NEURO (+) Seizure Partial (HCC) Other (+) Apnea Sleep Obstructive OBJECTIVE PHYSICAL EXAMINATION Airway (HEENT) Mallampati: II TM Distance: >3 FB Neck ROM: Full Mouth Opening: >3 cm Upper Lip Bite Test Class: I Cardiovascular Rhythm: Regular Rate: Normal Cardiovascular Assessment: cardiovascular normal Functional Capacity: >4 METS Pulmonary Pulmonary Assessment: Clear General / Constitutional Constitutional Assessment: Normal General State of Health:: healthy appearing and calm Neurological LUE and LLE mild weakness compared to right extremities Dental Normal ASSESSMENT / PLAN ANESTHESIA PLAN ASA: 3 Anesthesia Plan: MAC Patient seen and allergies reviewed, anesthesia plan and risks discussed directly with patient /legal guardian or through an automotive parts interpreter.. Risks/Benefits/Alternatives of Blood transfusion discussed with patient, including an opportunity toask questions and/or decline some or all transfusion therapies. The patient consented to the use of all blood products, as deemed medically necessary Patient describes no symptoms of reflux in the past few days and feels like everything he ate yesterday and today passed through his esophagus without difficulty. Will plan for MAC and convert to GETA if indicated. documented in this encounter Plan of Treatment Upcoming Encounters Date Type Specialty Care Team Description 04/04/2022 Appointment Laboratory Medicine Mehrdad Lazcano APRN, C.N.P. [address] [address] 04/04/2022 Appointment Cardiovascular Disease Mehrdad Lazcano APRN, C.N.P. [address] [address] 04/05/2022 Ancillary Procedure Cardiovascular Disease Kayla Heredia M.D. [address] [place] [phone] 04/05/2022 Appointment Cardiovascular Disease Jessa Heredia M.D. [address] [place] [phone] 04/12/2022 Clinical Communication Admitting/Central Scheduling 04/15/2022 Comprehensive Visit Cardiovascular Disease Kayla Heredia M.D. [address] [place] [phone] documented as of this encounter Visit Diagnoses Not on filedocumented in this encounter Administered Medications Inactive Administered Medications - up to 3 most recent administrations Medication Order MAR Action Action Date Dose Rate Site fentaNYL injection (SUBLIMAZE) Given 02/18/2019 3:48 PM CDT 50 mcg intravenous, As needed, Starting on Mon02/18/19 at 1548, Anesthesia Intra-op lactated ringers New Bag 02/18/2019 3:48 PM CDT intravenous, Continuous Infusion: Per Instructions PRN, Starting on Mon02/18/19 at 1548, Anesthesia Intra-op lidocaine (PF) (cardiac) injection Given 02/18/2019 3:48 PM CDT 40 mg intravenous, As needed, Starting on Mon02/18/19 at 1548, Anesthesia Intra-op propofol 10 mg/mL infusion Rate/Dose 02/18/2019 3:56 100 mcg/kg/min 52.6 mL/hr (DIPRIVAN) Change PM CDT intravenous, Continuous Infusion: Per Instructions PRN, Starting on Mon02/18/19 at 1550, Anesthesia Intra-op New Bag 02/18/2019 3:50 PM CDT 150 mcg/kg/min 78.8 mL/hr propofol injection (DIPRIVAN) Given 02/18/2019 3:50 PM CDT 30 mg intravenous, As needed, Starting on Mon02/18/19 at 1550, Anesthesia Intra-op documented in this encounter
--- OUTSIDE RECORDS SUMMARY | 2022-03-31 20:37 | XMS_ITS | Encounter Summary ---
:1940 Author Organization [facility] Address [address] [place] [address] Care Team Providers Name Role Phone Unavailable Primary Care Provider Unavailable Reason for Referral Outpatient (Routine) - Closed Specialty Diagnoses / Procedures Referred By Contact Refer red To Contact Diagnoses Achalasia Guillermo Werner M.D., [facility] Procedures EGD (EsophagoGastroDuodenoscopy) Restricted Ph.D. [address] [place] [address] Referral ID Status Reason Start Date Expiration Date Visits Requ ested Visits Authorized [id number] Closed 12/17/2018 12/17/2019 1 1 Reason for Visit Outpatient (Routine) - Closed Specialty Diagnoses / Procedures Referred By Contact Refer red To Contact Diagnoses Achalasia Guillermo Werner M.D., [facility] Procedures EGD (EsophagoGastroDuodenoscopy) Restricted Ph.D. [address] [place] [address] Referral ID Status Reason Start Date Expiration Date Visits Requ ested Visits Authorized [id number] Closed 12/17/2018 12/17/2019 1 1 Encounter Details Date Type Department Care Team Description 02/18/2019 Hospital Encounter Division of Guillermo Werner M.D., Ph.D. Achalasia Gastroenterology in Juan Pablo Blevins APRN, [employer] MAINFRAME DEVELOPER [address] [place] [phone] [place], [place] [address] [place] [phone] Social History Tobacco Use Types Packs/Day Years Used Date Smoking Tobacco: Never Social Isolation Answer Date Recorded In a typical week, how many times do you Once a week 02/14/2019 talk on the phone with family, friends, or neighbors? How often do you get together with friends More than three t imes a week 02/14/2019 or relatives? How often do you attend temple or More than 4 times per year 02/14/2019 mosque services? Do you belong to any clubs or No 02/14/2019 organizations such as temple groups, unions, [employer] or athletic groups, or school groups? How [...] Sign Reading Time Taken Comments Blood Pressure 141/85 02/18/2019 5:04 PM CDT Pulse 69 02/18/2019 5:04 PM CDT Temperature 36.4 ??C (97.5 ??F) 02/18/2019 5:04 PM CDT Respiratory Rate 22 02/18/2019 5:04 PM CDT Oxygen Saturation 97% 02/18/2019 5:04 PM CDT Inhaled Oxygen Concentration - - Weight - - Height - - Body Mass Index - - documented in this encounter Discharge Instructions AttachmentsThe following attachments cannot be sent through Care Everywhere.Care Following Upper Endoscopy (Gambian)Types of Diets (Gambian)documented in this encounter Medications at Time of Discharge Medication Sig Dispensed Refills Start Date End Date allopurinol (ZYLOPRIM) 100 Take 100 mg by 0 11/09 mg tablet mouth daily. calcitRIOL (ROCALTROL) 1 capsule. 3 times 0 12/27 0.25 mcg capsule weekly warfarin (COUMADIN) 2 mg 1 mg on //Mon 0 12/20 tablet and 2 mg on ///Mon. amLODIPine (NORVASC) 5 mg Take 5 mg by mouth 0 2021 tablet daily. amoxicillin (AMOXIL) 500 Take 4 capsules by 0 12/11/2021 mg capsule mouth. Prior to dental work hydrALAZINE (APRESOLINE) Take 10 mg by mouth 0 12/08/2021 10 mg tablet 3 (three) times a day. hydrocortisone (HYTONE) as needed. 0 02/03/2019 0 2021 2.5 % cream omeprazole (PriLOSEC) 20 Take 20 mg by mouth 0 12/11/[address] capsule daily. propafenone (RYTHMOL) 225 Take 225 mg by 0 201812/02/2021 mg tablet mouth 3 (three) times a day. sodium bicarbonate 650 mg Take 650 mg by 0 201812/02/2021 tablet mouth 3 (three) times a day. documented as of this encounter Plan of Treatment Upcoming Encounters Date Type Specialty Care Team Description 04/04/2022 Appointment Laboratory Medicine Mehrdad Lazcano APRN, C.N.P. [address] [place] [address] 04/04/2022 Appointment Cardiovascular Disease Mehrdad Lazcano APRN, C.N.P. [address] [place] [address] 04/05/2022 Ancillary Procedure Cardiovascular Disease Kayla Heredia M.D. [address] [place] [phone] 04/05/2022 Appointment Cardiovascular Disease Jessa Heredia M.D. [address] [place] [address] 04/12/2022 Clinical Communication Admitting/Central Scheduling 04/15/2022 Comprehensive Visit Cardiovascular Disease Kayla Heredia M.D. [address] [place] [address] documented as of this encounter Procedures Procedure Name Priority Date/Time Associated Comments Diagnosis EGD Routine 02/18/2019 3:24 PM Achalasia (ESOPHAGOGASTRODUODE CDT NOSCOPY) RESTRICTED UPPER GI ENDOSCOPY Routine 02/18/2019 3:24 PM Achalasia Res ults for this CDT procedure are i n the results section. documented in this encounter Results Upper GI Endoscopy (02/18/2019 3:24 PM CDT) Specimen (Source) Anatomical Collection Method Collection Time Re ceived Time Location / / Volume Laterality 02/18/2019 3:24 PM CDT Impressions [facility] - 02/18/2019 4:13 PM CDT Post-op Diagnoses: ? - Dilation in the entire esophagu s. ? - Normal lower esophageal sphinct er. Dilated. ? - Normal stomach. ? - Normal examined duodenum. ? - No specimens collected. ? - Endo flip consistent with treat ed achalasia. Narrative [facility] - 02/18/2019 4:13 PM CDT Gonda 2 GI Patient Name: David Castro Date of : 1940 Age: 78 Gender: Male Procedure Date: 02/18/2019 Procedure: ? Upper GI endoscopy Providers: ? Bassam Orozco MD Referring Provider: ?Guillermo Jean nd, MD Pre-op Diagnoses: ?Dysphagia Recommendation: ? - Discharge patient to home. ? - Clear liquids for 2 hours. Full liquids for 2 hours. If doing well may ? advance to a soft solid diet for 5 days. Findings: ? The lumen of the esophagus was mo derately dilated. ? There was an excees of saliva pre sent in the esophagus. Esophagus was ? very tortuous. ? The lower esophageal sphincter sh owed no increased pressure to pass the ? scope. A TTS dilator was passed t hrough the scope. Dilation with an ? 18-19-20 mm balloon dilator was p erformed to 20 mm. 20 mm balloon was ? pulled through the GE junction wi th very minimal pressure. The dilation ? site was examined and showed mild mucosal disruption and mild ? improvement in luminal narrowing. Estimated blood loss was minimal. ? Endoflip Performed: At 40 ml LES diameter was 9.6 mm and a DI of 3.6. At ? 50 mL the diameter was 10.7 mm an d DCI was 3.1. At 60 mL the diameter ? was 11.7 mm and DI was 3.5 ? The entire examined stomach was n ormal. ? The examined duodenum was normal with prominent Renu's gland ? hyperplasia in the bulb ? The Z-line was irregular and was found 42 cm from the incisors. Procedural Details: ? The patient was seen, [...] were monitored continuously. The Gastroscope was introduced through the ? mouth, and advanced to the second part of duodenum. The upper GI ? endoscopy was accomplished withou t difficulty. The patient tolerated the ? procedure well. Complications: ? No immedia te complications. Estimated Blood Loss: ? Estimated blood loss: none. Attending Participation: I personally pe rformed the entire procedure. Bassam Orozco MD 02/18/2019 4:13:33 PM This report has been signed electronical ly. Number of Addenda: 0 Note Initiated On: 02/18/2019 3:24 PM Guillermo Werner M.D., Ph.D. GI PROCEDURE ORDERABLES Performing Organization Address City/State/ZIP Code Phon e Number [employer] NA documented in this encounter Visit Diagnoses Diagnosis Achalasia documented in this encounter Administered Medications Inactive Administered Medications - up to 3 most recent administrations Medication Order MAR Action Action Date Dose Rate Site lactated ringers Continued from OR 02/18/2019 4:15 PM 20 mL/hr 20 mL/hr 20 mL/hr, intravenous, CDT Continuous, Starting on Mon02/18/19 at 1615, PACU & Post-Op documented in this encounter
--- OUTSIDE RECORDS SUMMARY | 2022-03-31 20:37 | XMS_ITS | Encounter Summary ---
:1940 Author Organization [facility] Address [address] [place] [address] Care Team Providers Name Role Phone Unavailable Primary Care Provider Unavailable Encounter Details Date Type Department Care Team Description 12/06/2021 Clinical Communication Division of Pulmonary Samia Gonzales, Medicine in M.D., M.H.P.E. [address] [place] [phone] Social History Tobacco Use Types Packs/Day Years [...] More than 4 times per year 02/14/2019 jewish services? Do you belong to any clubs [...] Laboratory Medicine Mehrdad Lazcano APRN, C.N.P. [address] [place] [address] 04/04/2022 Appointment Cardiovascular Disease Mehrdad Lazcano APRN, C.N.P. [address] [place] [address] 04/05/2022 Ancillary Procedure Cardiovascular Disease Kayla Heredia M.D. [address] [place] [phone] 04/05/2022 Appointment Cardiovascular Disease Jessa Heredia M.D. 200 [place] [phone] 04/12/2022 Clinical Communication Admitting/Central Scheduling 04/15/2022 Comprehensive Visit Cardiovascular Disease Kayla Heredia M.D. [address] [place] [address] documented as of this encounter Visit Diagnoses Diagnosis Empyema Pleural (HCC) documented in this encounter
--- OUTSIDE RECORDS SUMMARY | 2022-03-31 20:37 | XMS_ITS | Encounter Summary ---
:1940 Author Organization [facility] Address [address] [place] [address] Care Team Providers Name Role Phone Unavailable Primary Care Provider Unavailable Reason for Visit Outpatient (Routine) - Closed Specialty Diagnoses / Procedures Referred By Contact Refer red To Contact Pulmonary Medicine Diagnoses Achalasia Cough With Hemorrhage Shortness Of Breath Dysphagia Gastroesophageal Reflux Disease Without Esophagitis Laparoscopic Myotomy For Achalasia Status Post Chronic Kidney Disease Stage 4 Glomerular Filtration Rate 15-29 ([facility]) [facility] Laura GranadosB.S. 200 [place] [address] Referral ID Status Reason Start Date Expiration Date Visits V isits Requested Authorized [id number] Closed Specialty 02/14/2019 02/14/2020 1 1 Services Required Encounter Details Date Type Department Care Team Description 02/20/2019 Comprehensive Visit Division of Feroz Bo a; Pulmonary Jesu Mendes, Cough With He morrhage; Medicine in M.D. Shortness Of Breath; [address] Dysphagia; [place], [place] Gastroesophageal Reflux Dise ase Without Esophagitis; [address] [place] [phone] Laparoscopic Myotomy For Achalasia Statu s Post; [place], [place] [phone] Chronic Kidney Disease Stage 4 Glomerular Filtration Rate 15-29 ([facility]) [id number] (Work) [phone] Social History Tobacco Use Types Packs/Day Years Used Date Smoking Tobacco: Never Smokeless Tobacco: Never Social Isolation Answer Date Recorded In a typical week, how many times do you Once a week 02/14/2019 talk on the phone with family, friends, or neighbors? How often do you get together with friends More than three t imes a week 02/14/2019 or relatives? How often do you attend protestant or More than 4 times per year 02/14/2019 confucianist services? Do you belong to any clubs or No 02/14/2019 organizations such as protestant groups, unions, fraternal or athletic groups, or [...] Taken Comments Blood Pressure - - Pulse 84 02/20/2019 3:14 PM CDT Temperature 36.6 ??C (97.9 ??F) 02/20/2019 3:14 PM CDT Respiratory Rate - - Oxygen Saturation 98% 02/20/2019 3:14 PM CDT Inhaled Oxygen Concentration - - Weight - - Height - - Body Mass Index - - documented in this encounter Consult Notes Jesu Bo M.D. - 02/20/2019 3:30 PM CDT SUBJECTIVE CHIEF COMPLAINT/REASON FOR VISIT Multifactorial dyspnea HISTORY OF PRESENT ILLNESS Pleasant challenging 78-year-old man and never smoker with multiple medical problems including obstructive sleep apnea requiring CPAP (since 2014), achalasia with reflux and possible recurrent aspiration, chronic kidney disease stage 4 (GFR less than 30 ml/min), paroxysmal atrial fibrillation (on Coumadin and Rythmol), LVH, and remote treatment for intracranial abscess here to review chest x-ray and PFT results. Care is being coordinated through his local family physician, Dr. Kush Doran, whom I spoke with today. Patient reports intermittent dyspnea and improving lower extremity edema over the past month. He denies fever, chills, exposure to ill family members, trauma or headache. He is awaiting further cardiac follow up and nephrology review regarding timing of dialysis. ENT: Positive for difficulty hearing. Respiratory: Positive for coughing up blood. Cardiovascular: Positive for swelling in the legs or feet and rapid or fluttering heart beat. Gastrointestinal: Positive for difficulty swallowing. The following systems were negative: Constitutional, Skin, Eyes, , Hematologic, Musculoskeletal, Neuro, Psych OBJECTIVE PHYSICAL EXAMINATION BP 126/76 HR 74 irreg RR 12 unlabored. Temp 36.6 O2 sat 98% on room air ENT-no epistaxis, hoarseness, or cervical adenopathy. Lungs-bibasilar crackles without wheeze, significant pleural effusion, or pleural friction rub. No accessory muscle use. Heart-variable S1, normal S2. JVP 8-9 cm. Grade 1 to 2/6 mitral regurgitation murmur. 1+ bilateral pretibial edema (elastic stockings on). No cellulitis or active stasis dermatitis/venous ulcer. Abdomen-soft, nontender. Bowel sounds present. Extremities-no cyanosis or clubbing. 1+ bilateral pretibial edema as noted above. No asterixis. DIAGNOSTICS RELEVANT LAB RESULTS: See Care everywhere. PFT's-mild restriction with TLC 66% predicted. Chest g-wga-hcijlvwoh patchy infiltrate and atelectasis with prominent central pulmonary arteries and small bilateral pleural effusions. Cardiomegaly. Multilevel thoracic vertebral wedging with mild kyphosis. ASSESSMENT / PLAN #1 Achalasia Continue interventions per GI. Aspiration risk remain ongoing challenge as patient is aware. #2 Cough With Hemorrhage Suspect likely due to combined pulmonary venous congestion/edema and warfarin anticoagulation. No need for bronchoscopy or workup for vasculitis at this time. Continue optimizing volume status, arrhythmia management and correcting any and anemia. Hemoglobin 13.7 g/dL. INR 1.4 #3 Dysphagia EGD results noted. Enlarged left atrium in addition to reflux and achalasia noted. #4 Paroxysmal atrial fibrillation-currently rate controlled Continue follow-up with Cardiology and Nephrology-care being coordinated through Dr. Doran at thistime. #5 End-stage renal disease (Stage 4 - Glomerular Filtration Rate < 20) Continue follow-up with Nephrology. K+ 4.6 Creat 3.57 BUN 45 Bicarb 22 (Anion gap 14) #6 Complex pulmonary restriction on PFTs Likely contributors include pulmonary edema, recurrent low-grade aspiration, mild kyphosis, and cardiomegaly. Stress echocardiogram from August 2017 indicate LVEF 65-70%, negative for ischemia, mild aortic regurgitation and RVSP 31 plus RA pressure. Consider repeat echocardiogram to exclude any tachycardia associated cardiomyopathy, changes in secondary pulmonary hypertension or pericardial pathology. #7 Obstructive sleep apnea-compliant with CPAP #8 Remote history of intracranial abscess status post right craniotomy documented in this encounter Plan of Treatment Upcoming Encounters Date Type Specialty Care Team Description 04/04/2022 Appointment Laboratory Medicine Mehrdad Lazcano APRN, C.N.P. [address] [place] [address] 04/04/2022 Appointment Cardiovascular Disease Mehrdad Lazcano APRN, C.N.P. [address] [place] [address] 04/05/2022 Ancillary Procedure Cardiovascular Disease Kayla Heredia M.D. [address] [place] [address] 04/05/2022 Appointment Cardiovascular Disease Jessa Heredia M.D. [address] [place] [phone] 04/12/2022 Clinical Communication Admitting/Central Scheduling 04/15/2022 Comprehensive Visit Cardiovascular Disease Kayla Heredia M.D. [address] [place] [phone] documented as of this encounter Visit Diagnoses Diagnosis Achalasia Cough With Hemorrhage Shortness Of Breath Dysphagia Gastroesophageal Reflux Disease Without Esophagitis Laparoscopic Myotomy For Achalasia Statu s Post Chronic Kidney Disease Stage 4 Glomerula r Filtration Rate 15-29 (HCC) documented in this encounter
--- OUTSIDE RECORDS SUMMARY | 2022-03-31 20:37 | XMS_ITS | Encounter Summary ---
:1940 Author Organization [facility] Address [address] [place] [address] Care Team Providers Name Role Phone Unavailable Primary Care Provider Unavailable Reason for Referral Outpatient (Routine) - Closed Specialty Diagnoses / Procedures Referred By Contact Refer red To Contact Pulmonary Medicine Diagnoses Empyema Pleural (HCC) [facility] Estela, M.S[facility] [address] [place] [phone] Referral ID Status Reason Start Date Expiration Date Visits Requ ested Visits Authorized [id number] Closed 12/07/2021 12/07/2022 1 1 Encounter Details Date Type Department Care Team Description 12/07/2021 Clinical Communication RST HIM Maria G Adame, [address] [place] [address] Estela, M.S. [place], [place] [address] [place] [phone] [place] [address] Social History Tobacco Use Types Packs/Day Years [...] or relatives? How often do you attend synagogue or More than 4 times per year 02/14/2019 voodoo services? Do you belong to any clubs or No 02/14/2019 organizations such as synagogue groups, unions, fraternal or athletic groups, or [...] Medicine Mehrdad Lazcano APRN, C.N.P. [address] [place] [address] 04/04/2022 Appointment Cardiovascular Disease Mehrdad Lazcano APRN, C.N.P. [address] [place] [address] 04/05/2022 Ancillary Procedure Cardiovascular Disease Kayla Heredia M.D. [address] [place] [address] 04/05/2022 Appointment Cardiovascular Disease Jessa Heredia M.D. 200 [place] [address] 04/12/2022 Clinical Communication Admitting/Central Scheduling 04/15/2022 Comprehensive Visit Cardiovascular Disease Kayla Heredia M.D. 200 [place] [address] Scheduled Referrals Name Type Priority Associated Diagnoses Order [facility] Pulmonary Medicine Outpatient Referral Routine Empyema Pleural Expected: - Pleural Disease (HCC) 12/28/2021 consult (clinic) (Approximat e), Expires: 03/08/2023 documented as of this encounter Visit Diagnoses Diagnosis Empyema Pleural (HCC) - Primary documented in this encounter Additional Health Concerns Infection Onset Date Last Indicated Resolved Time COVID19 Pending 12/09/2021 12/09/2021 12/09/2021 8:00 PM CDT COVID19 Pending 12/09/2021 12/09/2021 12/09/2021 8:26 PM CDT documented as of this encounter
--- OUTSIDE RECORDS SUMMARY | 2022-03-31 20:37 | XMS_ITS | Encounter Summary ---
:1940 Author Organization [facility] Address [address] [place] [address] Care Team Providers Name Role Phone Unavailable Primary Care Provider Unavailable Reason for Visit Outpatient (Routine) - Closed Specialty Diagnoses / Referred By Referred To Cont act Procedures Contact Gastroenterology and [facility] [place] [facility]atology Laura GranadosB.S. 200 [place] [address] Referral ID Status Reason Start Date Expiration Date Visits Requ ested Visits Authorized [id number] Closed 02/14/2019 02/14/2020 1 1 Encounter Details Date Type Department Care Team Description 02/20/2019 Office Visit Division of Kelechi Werner ([facility] [place]) [place], [place] Ph.D. [address] [place] [phone] Social History Tobacco Use Types Packs/Day [...] or relatives? How often do you attend mormonism or More than 4 times per year 02/14/2019 zoroastrian services? Do you belong to any clubs or No 02/14/2019 organizations such as mormonism groups, unions, fraternal or athletic groups, or [...] on file documented as of this encounter Progress Notes Guillermo Werner M.D. - 02/20/2019 11:40 AM CDT I followed up on Mr. Castro who has now undergone upper endoscopy with a 20 mm dilation. The EG junction did not look particularly tight. The distensibility index was high. I explained that most of his eating difficulties are likely related to dysmotility as opposed to obstruction at the level of GE junction. He will modify his diet and notified me in 3 months if he is doing better. If not we could consider pneumatic dilatation. documented in this encounter Plan of Treatment Upcoming Encounters Date Type Specialty Care Team Description 04/04/2022 Appointment Laboratory Medicine Mehrdad Lazcano APRN, C.N.P. [address] [place] [address] 04/04/2022 Appointment Cardiovascular Disease Mehrdad Lazcano APRN, NatalieNBaileyP. [address] [place] [address] 04/05/2022 Ancillary Procedure Cardiovascular Disease Kayla Heredia M.D. [address] [place] [phone] 04/05/2022 Appointment Cardiovascular Disease Jessa Heredia M.D. [address] [place] [phone] 04/12/2022 Clinical Communication Admitting/Central Scheduling 04/15/2022 Comprehensive Visit Cardiovascular Disease Kayla Heredia M.D. [address] [place] [phone] documented as of this encounter Visit Diagnoses Diagnosis Achalasia - Primary documented in this encounter
--- OUTSIDE RECORDS SUMMARY | 2022-03-31 20:37 | XMS_ITS | Encounter Summary ---
:1940 Author Organization [facility] Address [address] [place] [address] Care Team Providers Name Role Phone Unavailable Primary Care Provider Unavailable Encounter Details Date Type Department Care Team Description 2021 Ancillary Procedure Department of Radiology Gavin Andujar, in [facility] Pablo queen APRN.N.P. [address] [facility] [address] [place] [address] [place] [phone] Social History Tobacco Use Types Packs/Day Years [...] or relatives? How often do you attend orthodoxy or More than 4 times per year 02/14/2019 restorationist services? Do you belong to any clubs or No 02/14/2019 organizations such as orthodoxy groups, unions, fraternal or athletic groups, or [...] Laboratory Medicine Mehrdad Lazcano APRN, C.N.P. [address] [place] [address] 04/04/2022 Appointment Cardiovascular Disease Mehrdad Lazcano APRN, C.N.P. [address] [place] [address] 04/05/2022 Ancillary Procedure Cardiovascular Disease Kayla Heredia M.D. 200 [place] [phone] 04/05/2022 Appointment Cardiovascular Disease Jessa Heredia M.D. 200 [place] [phone] 04/12/2022 Clinical Communication Admitting/Central Scheduling 04/15/2022 Comprehensive Visit Cardiovascular Disease Kayla Heredia M.D. [address] [place] [address] documented as of this encounter Procedures Procedure Name Priority Date/Time Associated Comments Diagnosis INTERPRETATION OF RAD - Routine 2021 2:07 Result s for OUTSIDE DX CHEST (most inpatients AM CDT this pr ocedure and all are in the outpatients) results section. documented in this encounter Results Interpretation of Outside DX Chest (2021 2:07 AM CDT) Anatomical Region Laterality Modality Thoracic RST LOS, Thoracic ARZ LOS, Thoracic FLA LOS, N/A Digital Radiography Chest, Other Specimen (Source) Anatomical Collection Method Collection Time Re ceived Time Location / / Volume Laterality 2021 2:37 AM CDT Impressions 2021 9:12 AM CDT Patchy airspace and consolidative opacities within the right mid and lower lung. Interstitial opacities left mid and lowe r lung. Small-moderate right basilar pneumothorax. Small right pleural effusion. The right costop hrenic angle is incompletely visualized. Calcified tortuous aorta. Mitral annular ossifications. Eso phageal hiatal hernia. Narrative 2021 9:12 AM CDT EXAM: ??INTERPRETATION OF OUTSIDE DX CHEST COMPARISON: ??12/01/[address], 02/14 chest radiograph. Interpretation of outside chest radiogra ph, single frontal AP view, dated 12/01/2021. Procedure Note Lizz Virk M.D. - 2021Formatt ing of this note might be different from the original. EXAM: INTERPRETATION OF OUTSIDE DX CHEST COMPARISON: 12/01/[address], 019 chest radiograph. Interpretation of outside chest radiogra ph, single frontal AP view, dated 12/01/2021. IMPRESSION: Patchy airspace and consolidative opacit ies within the right mid and lower lung. Interstitial opacities left mid and lowe r lung. Small-moderate right basilar pneumothorax. Small right pleural effusion. The right costop hrenic angle is incompletely visualized. Calcified tortuous aorta. Mitral annular ossifications. Eso phageal hiatal hernia. Jamal Andujar APRN, C.N.P. IMG DIAGNOSTIC IMAGING PROC EDURES documented in this encounter Visit Diagnoses Not on filedocumented in this encounter
--- OUTSIDE RECORDS SUMMARY | 2022-03-31 20:37 | XMS_ITS | Encounter Summary ---
:1940 Author Organization [facility] Address [address] [place] [address] Care Team Providers Name Role Phone Unavailable Primary Care Provider Unavailable Reason for Referral Outpatient (Routine) - Closed Specialty Diagnoses / Procedures Referred By Contact Refer red To Contact Diagnoses Guillermo Ayers M.D., [facility] Procedures FL Esophagram HI XR ESOPHAGUS HC XR ESOPHAGUS HI XR ESOPHAGUS Ph.D. 200 [place] [address] Referral ID Status Reason Start Date Expiration Date Visits Requ ested Visits Authorized [id number] Closed 12/17/2018 12/17/2019 1 1 Reason for Visit Outpatient (Routine) - Closed Specialty Diagnoses / Procedures Referred By Contact Refer red To Contact Diagnoses Guillermo Ayers M.D., [facility] Procedures FL Esophagram HI XR ESOPHAGUS HC XR ESOPHAGUS HI XR ESOPHAGUS Ph.D. [address] [place] [address] Referral ID Status Reason Start Date Expiration Date Visits Requ ested Visits Authorized [id number] Closed 12/17/2018 12/17/2019 1 1 Encounter Details Date Type Department Care Team Description 02/15/2019 Hospital Encounter Department of Radiology, Cinthya Werner, eryn Freeman M.D., Ph.D. [address] [phone] Social History Tobacco Use Types Packs/Day [...] More than 4 times per year 02/14/2019 muslim services? Do you belong to any clubs [...] warfarin (COUMADIN) 2 mg 1 mg on /Sun 0 12/20 tablet and 2 mg on ///Sat. amLODIPine (NORVASC) 5 mg Take 5 mg [...] Laboratory Medicine Mehrdad Lazcano APRN, C.N.P. [address] [place] [address] 04/04/2022 Appointment Cardiovascular Disease Mehrdad Lazcano APRN, C.N.P. [address] [place] [address] 04/05/2022 Ancillary Procedure Cardiovascular Disease Kayla Heredia M.D. 200 [place] [phone] 04/05/2022 Appointment Cardiovascular Disease Jessa Heredia M.D. 200 [place] [phone] 04/12/2022 Clinical Communication Admitting/Central Scheduling 04/15/2022 Comprehensive Visit Cardiovascular Disease Kayla Heredia M.D. [address] [place] [address] documented as of this encounter Procedures Procedure Name Priority Date/Time Associated Comments Diagnosis FL ESOPHAGRAM RAD - Routine 02/15/2019 8:40 Achalasia Results fo r this SINGLE CONTRAST (most inpatients AM CDT procedur e are in and all the results outpatients) section. documented in this encounter Results FL Esophagram (02/15/2019 8:40 AM CDT) Anatomical Region Laterality Modality Gastro Intestinal, Abdominal RST LOS, Abdominal ARZ N/A Digital Radiography LOS, Abdominal FLA LOS Specimen (Source) Anatomical Collection Method Collection Time Re ceived Time Location / / Volume Laterality 02/15/2019 8:49 AM CDT Impressions 02/15/2019 9:22 AM CDT Achalasia with moderate esophageal dilatation. The 13 mm barium tablet passed through the gastroesophage al junction.. Narrative 02/15/2019 9:22 AM CDT EXAM: ??FL ESOPHAGRAM COMPARISON: ??None FINDINGS: ??A myotomy has been performed for achalasia. The esophagus is diffusely dilated and tapers distally. T he maximum esophageal diameter is 43 mm. The gastroesophageal junction measures 7 mm in diameter. ??A 13 mm barium tablet passed easily through the esophagus. Procedure Note Ferny Gomez M.D. - 02/15/2019Fo rmatting of this note might be different from the original. EXAM: FL ESOPHAGRAM COMPARISON: None FINDINGS: A myotomy has been performed f or achalasia. The esophagus is diffusely dilated and tapers distally. T he maximum esophageal diameter is 43 mm. The gastroesophageal junction measures 7 mm in diameter. A 13 mm barium tablet passed easily through the esophagus. IMPRESSION: Achalasia with moderate esophageal dilat ation. The 13 mm barium tablet passed through the gastroesophage al junction.. Guillermo Werner M.D., Ph.D. IMG FLUOROSCOPY PROCEDURES documented in this encounter Visit Diagnoses Diagnosis Achalasia documented in this encounter Administered Medications Inactive Administered Medications - up to 3 most recent administrations Medication Order MAR Action Action Date Dose Rate Site barium 60 % (w/v) suspension Given 02/15/2019 8:44 AM CDT 175 mL (LIQUID E-Z-PAQUE) Code/trauma/sedation medication, Starting on Mon02/15/19 at 0844 barium 700 mg tablet (E-Z-DISK) Given 02/15/2019 8:44 AM CDT 700 mg oral, Code/trauma/sedation medication, Starting on Mon02/15/19 at 0844 barium 98 % oral powder for suspension Given 02/15/2019 8:44 AM CDT 135 mL (E-Z-HD) Code/trauma/sedation medication, Starting on Mon02/15/19 at 0844 documented in this encounter
--- OUTSIDE RECORDS SUMMARY | 2022-03-31 20:37 | XMS_ITS | Encounter Summary ---
:1940 Author Organization [facility] Address [address] [place] [address] Care Team Providers Name Role Phone Unavailable Primary Care Provider Unavailable Encounter Details Date Type Department Care Team Description 2021 Ancillary Procedure Department of Pulmonary and CC Medicine Social History Tobacco Use Types Packs/Day Years [...] or relatives? How often do you attend yazidi or More than 4 times per year 02/14/2019 holiness services? Do you belong to any clubs or No 02/14/2019 organizations such as yazidi groups, unions, fraternal or athletic groups, or [...] Laboratory Medicine Mehrdad Lazcano APRN, C.N.P. [address] [place] [address] 04/04/2022 Appointment Cardiovascular Disease Mehrdad Lazcano APRN, C.N.P. [address] [place] [address] 04/05/2022 Ancillary Procedure Cardiovascular Disease Kayla Heredia M.D. [address] [place] [phone] 04/05/2022 Appointment Cardiovascular Disease Jessa Heredia M.D. [address] [place] [address] 04/12/2022 Clinical Communication Admitting/Central Scheduling 04/15/2022 Comprehensive Visit Cardiovascular Disease Kayla Heredia M.D. [address] [place] [address] documented as of this encounter Procedures Procedure Name Priority Date/Time Associated Diagnosis Comme nts PULMONARY AND CC Routine 2021 9:10 AM Resul ts for this MEDICINE IMAGE EXAM CDT procedur e are in the results section. documented in this encounter Results Non-Radiology Image-Pulmonary And CC Medicine Image Exam (2021 9:10 AM CDT) Specimen (Source) Anatomical Collection Method Collection Time Re ceived Time Location / / Volume Laterality 2021 9:07 AM CDT Narrative [facility] - 2021 10:03 AM CDT This order has been created and [...]
--- OUTSIDE RECORDS SUMMARY | 2022-03-31 20:37 | XMS_ITS | Encounter Summary ---
:1940 Author Organization [facility] Address [address] [place] [id number] Care Team Providers Name Role Phone Unavailable Primary Care Provider Unavailable Reason for Visit Reason Comments Chronic Kidney Disease Outpatient (Routine) - Closed Specialty Diagnoses / Procedures Referred By Contact Refer red To Contact Nephrology and Diagnoses Achalasia Cough With Hemorrhage Shortness Of Breath Dysphagia Gastroesophageal Reflux Disease Without Esophagitis Laparoscopic Myotomy For Achalasia Status Post Chronic Kidney Disease Stage 4 Glomerular Filtration Rate 15-29 (HCC) [facility] Laura GranadosB.S. [address] [place] [address] Referral ID Status Reason Start Date Expiration Date Visits Requ ested Visits Authorized [id number] Closed 02/14/2019 02/14/2020 1 1 Encounter Details Date Type Department Care Team Description 02/25/2019 Comprehensive Visit Division of [facility] Chronic Kidney Disease Stage 4 Glomerular Filtration Rate 15-29 (HCC) (Primary Dx); Nephrology and Ferny Krishnan, Achalasia; Hypertension in M.D. Cough With Hemorrhage; [place], [address] [place] [address] Shortness Of Breath; [place], [place] Dysphagia; [address] [place] [phone] Gastroesophageal Reflux Disease Without Esophagitis; [place], [place] [phone] Laparoscopic M [place]otomy [place] [id number] (Work) [phone] Social History Tobacco Use Types Packs/Day Years [...] or relatives? How often do you attend taoist or More than 4 times per year 02/14/2019 pentecostal services? Do you belong to any clubs or No 02/14/2019 organizations such as taoist groups, unions, fraternal or athletic groups, or [...] Sign Reading Time Taken Comments Blood Pressure 136/75 02/25/2019 1:22 PM CDT Pulse 74 02/25/2019 1:22 PM CDT Temperature - - Respiratory Rate - - Oxygen Saturation - - Inhaled Oxygen Concentration - - Weight 85.3 kg (188 lb 0.8 oz) 02/25/2019 12:44 PM CDT Height - - Body Mass Index 27.26 02/14/2019 7:26 AM CDT documented in this encounter Consult Notes Ferny Apodaca M.D. - 02/25/2019 1:00 PM CDT Referring Provider: Darwin Gaston, * SUBJECTIVE REASON FOR CONSULT Chronic kidney disease, stage 4 HISTORY OF PRESENT ILLNESS Mr. Castro is a 78 y.o. male who has longstanding chronic kidney disease of uncertain cause. He hasnever been biopsied. 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 He has also seen a renal dietitian. He takes his medications as noted below, follows his diet and has had a very slowly progressive course. He thinks this visit was precipitated by the possible need for intravenous contrast. He urinates normally. 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 The following portions of the patient's history were reviewed and updated as appropriate: allergies,current medications, family history, medical history, social history, surgical history and problem list. Current Outpatient Medications: ??? allopurinol (ZYLOPRIM) 100 mg tablet, Take 100 mg by mouth daily., Disp: , Rfl: ??? amLODIPine (NORVASC) 5 mg tablet, Take 5 mg by mouth daily., Disp: , Rfl: ??? amoxicillin (AMOXIL) 500 mg capsule, Take 1 capsule by mouth. Prior to dental work, Disp: , Rfl: ??? calcitRIOL (ROCALTROL) 0.25 mcg capsule, 1 capsule. 3 times weekly, Disp: , Rfl: ??? hydrALAZINE (APRESOLINE) 10 mg tablet, Take 10 mg by mouth 3 (three) times a day., Disp: , Rfl: ??? hydrocortisone (HYTONE) 2.5 % cream, as needed., Disp: , Rfl: ??? omeprazole (PriLOSEC) [address] capsule, Take 20 mg by mouth daily., Disp: , Rfl: ??? propafenone (RYTHMOL) 225 mg tablet, Take 225 mg by mouth 3 (three) times a day., Disp: , Rfl: ??? sodium bicarbonate 650 mg tablet, Take 650 mg by mouth 3 (three) times a day., Disp: , Rfl: ??? warfarin (COUMADIN) 2 mg tablet, 2 mg Mon, , Thus 1 mg Mon Sat, Disp: , Rfl: Review of Systems ENT: Positive for difficulty hearing. Respiratory: Positive for coughing up blood. Cardiovascular: Positive for swelling in the legs or feet and rapid or fluttering heart beat. Gastrointestinal: Positive for difficulty swallowing. The following systems were negative: Constitutional, Skin, Eyes, , Hematologic, Musculoskeletal, Neuro, Psych OBJECTIVE BP 136/75 Pulse 74 Wt 85.3 kg BMI 27.26 kg/m?? PHYSICAL EXAMINATION General: Alert, oriented cooperative. Eyes: Pupils equal and light reactive. ENT:Oropharynx open. Mucus membranes well hydrated. Thyroid: Normal. Lymph nodes: Normal Lungs: Clear. Heart: No murmur, rub or gallop. No carotid or renal artery bruits. Jugular venous pressure is distended on the right side at 30 degrees elevation, but not the left. Rhythm is irregularly irregular. Abdomen: No flank masses, tenderness, rebound, guarding or organomegaly. Well- healed surgical scars. Extremities: No edema. Bilateral compression stockings.Integument: No rash. Musculoskeletal: No synovitis. Neurological: Right handed. No asterixis. Gait normal. Appointment on 02/20/2019 Component Date Value Ref Range Status ??? DLCO SINGLE BREATH POST 02/20/2019 17.42 ml/(min*mmHg) Final ??? VA SINGLE BREATH POST 02/20/2019 4.05 L Final ??? [id number] 02/20/2019 98.00 % Final ??? I6CimJlnt 02/20/2019 96.00 % Final ??? PulseRest 02/20/2019 73.00 1/min Final ??? PulseExer 02/20/2019 129.00 1/min Final ??? EXER TIME 02/20/2019 3.00 min Final ??? STEP HEIGHT PRE 02/20/2019 9.00 Inch Final ??? VC MAX POST 02/20/2019 2.46 L Final ??? PostFEV1 02/20/2019 1.76 L Final ??? FEV1/FVC POST 02/20/2019 71.87 % Final ??? PostFVC 02/20/2019 2.46 L Final ??? FET POST 02/20/2019 6.10 sec Final ??? PEF POST 02/20/2019 8.10 L/s Final ??? FEF 25-75 % POST 02/20/2019 1.10 L/s Final ??? VC MAX PRE 02/20/2019 2.50 L Final ??? FEV1 02/20/2019 1.82 L Final ??? FEV1/FVC 02/20/2019 73.95 % Final ??? MVV 02/20/2019 55.36 L/min Final ??? FVC 02/20/2019 2.47 L Final ??? FET PRE 02/20/2019 6.00 sec Final ??? PEF PRE 02/20/2019 6.09 L/s Final ??? KOD59-89% 02/20/2019 1.30 L/s Final ??? FRCPLETH PROVBASE 02/20/2019 2.44 L Final ??? RV 02/20/2019 1.91 L Final ??? TLC 02/20/2019 4.40 L Final ??? RV % TLC PRE 02/20/2019 43.50 % Final ??? VC PRE 02/20/2019 2.49 L Final ??? SUBSTANCE POST 02/20/2019 NaN Final ??? DOSE POST 02/20/2019 NaN Final ??? % PRED VC MAX 02/20/2019 67.22 % Final ??? FEV1% 02/20/2019 65.60 % Final ??? % PRED FEV1/FVC 02/20/2019 98.14 % Final ??? FVC% 02/20/2019 66.39 % Final ??? % PRED PEF 02/20/2019 80.62 % Final ??? % PRED FEF 25-75% 02/20/2019 63.82 % Final ??? PRED VC MAX 02/20/2019 3.72 L Final ??? PRED FEV 1 02/20/2019 2.78 L Final ??? PRED FEV1/FVC 02/20/2019 75.35 % Final ??? PRED FVC 02/20/2019 3.72 L Final ??? PRED PEF 02/20/2019 7.55 L/s Final ??? PRED FEF 25-75% 02/20/2019 2.03 L/s Final Current Outpatient Medications: ??? allopurinol (ZYLOPRIM) 100 mg tablet, Take 100 mg by mouth daily., Disp: , Rfl: ??? amLODIPine (NORVASC) 5 mg tablet, Take 5 mg by mouth daily., Disp: , Rfl: ??? amoxicillin (AMOXIL) 500 mg capsule, Take 1 capsule by mouth. Prior to dental work, Disp: , Rfl: ??? calcitRIOL (ROCALTROL) 0.25 mcg capsule, 1 capsule. 3 times weekly, Disp: , Rfl: ??? hydrALAZINE (APRESOLINE) 10 mg tablet, Take 10 mg by mouth 3 (three) times a day., Disp: , Rfl: ??? hydrocortisone (HYTONE) 2.5 % cream, as needed., Disp: , Rfl: ??? omeprazole (PriLOSEC) [address] capsule, Take 20 mg by mouth daily., Disp: , Rfl: ??? propafenone (RYTHMOL) 225 mg tablet, Take 225 mg by mouth 3 (three) times a day., Disp: , Rfl: ??? sodium bicarbonate 650 mg tablet, Take 650 mg by mouth 3 (three) times a day., Disp: , Rfl: ??? warfarin (COUMADIN) 2 mg tablet, 2 mg Mon, , Thus 1 mg Mon, Disp: , Rfl: DIAGNOSTICS His chronic kidney disease parameters look very well balanced by his medication program and diet. Heis also a very good fluid drinker, drinking 8-10 L of water per day. His urinalysis is remarkable only for minimal proteinuria. His ultrasound shows thin cortices with increased echogenicity suggestingbilateral nephrosclerosis. Blood pressure is at goal. ASSESSMENT / PLAN #1 Chronic kidney disease, stage 4, uncertain cause, very slowly progressive #2 Hypertension, at goal #3 Chronic PPI use I think Mr. Castro is being very well managed by Dr. Charles and should continue under his care. I see no improvements to make in the program. Using a standard calculator, the risk of iodinated contrast causing acute kidney injury (assuming low volume, low osmolality) is 26%. The risk of permanent kidney injury is 1-2%. MR contrast should not be used given his GFR prediction of 16 mL/minute. Ideallyhis proton pump inhibitor would be switched to an H2 ankit, but given his past history of esophageal problems, I doubt that is feasible. He has visited his local dialysis unit and would probably consider dialysis as his preferred modality, should his kidney function continue to decline. Total time 30 minutes cell [id number] less than 50% counseling. Ferny Apodaca M.D. documented in this encounter Plan of Treatment Upcoming Encounters Date Type Specialty Care Team Description 04/04/2022 Appointment Laboratory Medicine Mehrdad Lazcano APRN, C.N.P. [address] [place] [address] 04/04/2022 Appointment Cardiovascular Disease Mehrdad Lazcano APRN, C.N.P. [address] [place] [address] 04/05/2022 Ancillary Procedure Cardiovascular Disease Kayla Heredia M.D. [address] [place] [phone] 04/05/2022 Appointment Cardiovascular Disease Jessa Heredia M.D. [address] [place] [address] 04/12/2022 Clinical Communication Admitting/Central Scheduling 04/15/2022 Comprehensive Visit Cardiovascular Disease Kayla Heredia M.D. [address] [place] [address] documented as of this encounter Visit Diagnoses Diagnosis Chronic Kidney Disease Stage 4 Glomerula r Filtration Rate 15-29 (HCC) - Primary Achalasia Cough With Hemorrhage Shortness Of Breath Dysphagia Gastroesophageal Reflux Disease Without Esophagitis Laparoscopic Myotomy For Achalasia Statu s Post documented in this encounter
--- OUTSIDE RECORDS SUMMARY | 2022-03-31 20:37 | XMS_ITS | Encounter Summary ---
:1940 Author Organization [facility] Address [address] [place] [address] Care Team Providers Name Role Phone Unavailable Primary Care Provider Unavailable Encounter Details Date Type Department Care Team Description 2021 Ancillary Procedure Department of Nursing Social History Tobacco Use Types Packs/Day Years [...] More than 4 times per year 02/14/2019 denominational services? Do you belong to any clubs [...] Laboratory Medicine Mehrdad Lazcano APRN, C.N.P. [address] [place] [address] 04/04/2022 Appointment Cardiovascular Disease Mehrdad Lazcano APRN, C.N.P. [address] [place] [address] 04/05/2022 Ancillary Procedure Cardiovascular Disease Kayla Heredia M.D. [address] [place] [address] 04/05/2022 Appointment Cardiovascular Disease Jessa Heredia M.D. [address] [place] [address] 04/12/2022 Clinical Communication Admitting/Central Scheduling 04/15/2022 Comprehensive Visit Cardiovascular Disease Kayla Heredia M.D. [address] [place] [address] documented as of this encounter Procedures Procedure Name Priority Date/Time Associated Diagnosis Comme nts NURSING IMAGE EXAM Routine 2021 12:05 AM Re sults for this CDT procedure are i n the results section. documented in this encounter Results Arm, Left-Nursing Image Exam (2021 12:05 AM CDT) Specimen (Source) Anatomical Collection Method Collection Time Re ceived Time Location / / Volume Laterality 2021 12:02 AM CDT Narrative [facility] - 2021 3:31 AM CDT This order has been created [...]
--- OUTSIDE RECORDS SUMMARY | 2022-03-31 20:37 | XMS_ITS | Encounter Summary ---
:[address] [facility] Address [address] [place] [address] Care Team Providers Name Role Phone Unavailable Primary Care Provider Unavailable Encounter Details Date Type Department Care Team Description 12/04/2021 Ancillary Procedure Department of Pulmonary and CC [...] or relatives? How often do you attend sikhism or More than 4 times per year 02/14/2019 samaritan services? Do you belong to any clubs or No 02/14/2019 organizations such as sikhism groups, unions, fraternal or athletic groups, or [...] Laboratory Medicine Mehrdad Lazcano APRN, C.N.P. [address] [place] [address] 04/04/2022 Appointment Cardiovascular Disease Mehrdad Lazcano APRN, C.N.P. [address] [place] [address] 04/05/2022 Ancillary Procedure Cardiovascular Disease Kayla Heredia M.D. [address] [place] [phone] 04/05/2022 Appointment Cardiovascular Disease Jessa Heredia M.D. [address] [place] [address] 04/12/2022 Clinical Communication Admitting/Central Scheduling 04/15/2022 Comprehensive Visit Cardiovascular Disease Kayla Heredia M.D. [address] [place] [address] documented as of this encounter Procedures Procedure Name Priority Date/Time Associated Diagnosis Comme nts PULMONARY AND CC Routine 12/04/2021 11:15 AM Resu lts for this MEDICINE IMAGE EXAM CDT procedur e are in the results section. documented in this encounter Results Non-Radiology Image-Pulmonary And CC Medicine Image Exam (12/04/2021 11:15 AM CDT) Specimen (Source) Anatomical Collection Method Collection Time Re ceived Time Location / / Volume Laterality 12/04/2021 11:12 AM CDT Narrative [facility] - 12/04/2021 12:13 PM CDT This order has been created [...]
--- OUTSIDE RECORDS SUMMARY | 2022-03-31 20:37 | XMS_ITS | Encounter Summary ---
:1940 Author Organization [facility] Address [address] [place] [address] Care Team Providers Name Role Phone Unavailable Primary Care Provider Unavailable Reason for Visit Auth/Cert Specialty Diagnoses / Procedures Referred By Contact Refer red To Contact Diagnoses Empyema Pleural (HCC) weakness Procedures DIR TO IP Referral ID Status Reason Start Date Expiration Date Visits Requ ested Visits Authorized [id number] 1 1 Encounter Details Date Type Department Care Team Description 2021 - [facility] John Paul Dockery M.D., M.P.H. [address] [place] [id number] Hydropneumothorax (Primary Dx); [facility] [address] [place] [address] Empyema Pleural (HCC); [facility], Ace Menchaca M.D. Effusion Pleural; Domitilla Dysphagia; Building, [facility] Floor [address] [place] [phone] Social History Tobacco Use Types Packs/Day Years [...] or relatives? How often do you attend voodoo or More than 4 times per year 02/14/2019 jainism services? Do you belong to any clubs or No 02/14/2019 organizations such as voodoo groups, unions, fraUniversity of [place] or athletic groups, or school groups? How [...] Sign Reading Time Taken Comments Blood Pressure 127/69 12/08/2021 12:02 PM CDT Pulse 61 12/08/2021 12:02 PM CDT Temperature 36.5 ??C (97.7 ??F) 12/08/2021 12:02 PM CDT Respiratory Rate 15 12/08/2021 12:02 PM CDT Oxygen Saturation 100% 12/08/2021 12:02 PM CDT Inhaled Oxygen Concentration - - Weight 79 kg (174 lb 2.6 oz) 12/07/2021 7:57 AM CDT Height 167.6 cm (5' 5.98) 12/03/2021 10:41 AM CDT Body Mass Index 28.12 12/03/2021 10:41 AM CDT documented in this encounter Discharge Summaries Maria G Adame P.A.-C., M.S. - 12/08/2021 11:13 AM CDT DISCHARGE SUMMARY BRIEF OVERVIEW Discharge Hospital: [facility] Discharge Provider: Arti Lozoya M.D. Discharge Provider Team: Hospital Internal Medicine (HIM) - [facility] Medicine 8 ([facility]) No primary care provider on file. PCP Phone Number: None PCP Fax Number: None Admission Date: 2021 Discharge Date: 12/08/21 PRINCIPAL DIAGNOSIS Empyema Pleural (HCC) SECONDARY DIAGNOSES Principal Problem: Empyema Pleural (HCC) Active Problems: Apnea Sleep Obstructive Achalasia Esophageal Motility Disorder Dysphagia Chronic Failure Renal End Stage Renal Disease Dialysis Dependent (HCC) Dialysis Peritoneal Status (HCC) Atrial Fibrillation Paroxysmal (HCC) Hypertension 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 Resolved Problems: * No resolved hospital problems. * DISCHARGE DISPOSITION Home or Self Care [1] ACTIVE ISSUES REQUIRING FOLLOW UP PCP follow up Please follow up on renal function panel While on Augmentin, please follow hepatic function panel - if LFT injury occurs consider transitioning to cefdinir and metronidazole Continue INR checks and warfarin as usual Continue CPAP as usual OUTPATIENT FOLLOW UP Scheduled Appointments 12/27/2021 11:00 AM RST INTAKE VISIT POD B 02 Admitting/Central Scheduling 12/28/2021 8:[address] [facility] ALVARE[facility] 809 Radiology 12/28/2021 1:30 PM Peng Tinajero M.D. Pulmonary Medicine For appointment details refer to your Patient Appointment Guide. TEST RESULTS PENDING AT DISCHARGE Pending Labs Order Current Status Fungal Culture, Routine In process DETAILS OF HOSPITAL STAY REASON FOR ADMISSION Empyema Pleural (HCC) HOSPITAL COURSE Mr. David Castro is a 81 y.o. male who presented to the [facility] ED with a chief complaint of weakness x 24 hours. Medical comorbidities include ESRD on nightly peritoneal dialysis, paroxysmal atrial fibrillation on Warfarin, HTN, ELENI, known achalasia and significant esophageal motility disorder/dysphagia and frequent aspiration pneumonia events in the past. Mr. Castro completed a PD session the afternoon prior to admission. He drove himself home, but whenhe attempted to get out of the car he felt he could not stand on both lower legs. He initially presented to [facility], then transitioned to [facility] for further care. Identified on CTperformed at [facility] to have a complex hydropneumothorax with scattered gas suspicious for pneumonia and/or empyema. Interventional pulmonary was consulted and proceeded with thoracentesis which drained approximately 300 cc of fluid. He was initiated on empiric Zosyn. In regards to his acute lower extremity weakness, no focal neurological deficits were noted. He noted similar episodes in the past after dialysis sessions. He felt subjectively better after increased p.o. fluid intake. PT and OT evaluated the patient and did not recommend any additional rehabilitationneeds at time of discharge. 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 Here, his pleural fluid analysis returned with a low pH and elevated TNC count which was suspicious for an infectious process. Given these findings, Interventional pulmonology proceeded with chest tube placement on 12/02. His initial admission CT noted possibility of bronchopleural fistula as a cause for his effusion; however, dedicated follow-up CT imaging returned negative. Another consideration for the etiology included a pleural-peritoneal leak, which was lower on the differential with a normal glucose level. A mildly elevated amylase level raised the suspicion for an esophageal leak. The patient underwent an esophagram on 12/06/2021 without evidence of esophageal leak. Overall evaluation for a peritoneal-pleural leak was deferred due to very low suspicion given pleural fluid findings. Mr. Castro passed a chest tube clamp trial with evidence of resolved pneumothorax. Chest tube was pulled on 12/07 without complication. His cultures had NGTD on day of discharge. He was continued on oral antibiotics for a total of 3 weeks. He will have follow-up with the pulmonology service with repeat imaging after that. Nephrology was consulted for peritoneal dialysis needs. In regards to his achalasia, gastroenterology and the floor dietitian were consulted. Overall, no indication for any invasive interventions. Swallow studies did show esophageal regurgitation, likely leading to aspiration and culprit of his recurrent pleural effusions. He was provided Education about the optimal diet for him. The possibility of a percutaneous feeding tube was also presented, however patient was not ready at this time. He was discharged in stable condition. MEDICATIONS CHANGED DURING THIS HOSPITAL STAY Medications stopped: Medications changed: decreased isosorbide and HELD torsemide and hydralazine Medications added: augmentin CONSULTS ORDERED DURING THIS ADMISSION IP CONSULT TO DIETITIAN IP CONSULT TO NEPHROLOGY IP CONSULT TO INTERVENTIONAL PULMONOLOGY IP CONSULT TO GASTROENTEROLOGY IP CONSULT TO DIETITIAN CONDITION AT DISCHARGE Stable The above plan of care was discussed with Dr. Lozoya, HIM financial analysis consultant. I saw and evaluated Mr. David Castro today and provided counseling [id number] at bedside. I personally spent a total of 35 minutes in counseling and coordination of care as described above to facilitate the hospital discharge. Discharge instructions were provided to the patient and caregiver(s). documented in this encounter Discharge Instructions Discharge InstructionsBernice Pisano - 2021 7:19 AM CDT You were discharged from the [facility] Medicine 8 ([facility]) Service. Please identify this service name if you call with questions after hospitalization. AppointmentsBernice Pisano - 2021 2:46 PM CDT Take a copy of this after visit summary to your appointment(s). DIVINA Van December 09, 2021 - --4:10 PM - Hospital Follow-Up with Dr. Doran, at [facility] Address: [address] [place], [place] [address]DIVINA [place] [address] If you have any questions, concerns, or need to reschedule please call [phone] AttachmentsThe following attachments cannot be sent through Care Everywhere. Amoxicillin/Clavulanate Potassium (By mouth) (Cypriot)Gentamicin (On the skin) (Cypriot)Cholecalciferol (By mouth) (Cypriot)documented in this encounter Medications at Time of Discharge Medication Sig Dispensed Refills Start Date End Date multivitamin renal Take 1 tablet by mouth 30 tablet 0 12/08 failure (DIALYVITE) daily with dinner. 100-1 mg tablet allopurinol (ZYLOPRIM) Take 100 mg by mouth 0 100 mg tablet daily. calcitRIOL (ROCALTROL) 1 capsule. 3 times 0 12/27 0.25 mcg capsule weekly metoprolol tartrate Take 25 mg by mouth 2 0 (LOPRESSOR) 25 mg (two) times a day. tablet warfarin (COUMADIN) 2 1 mg on //Mon and 0 mg tablet 2 mg on ///Mon. amoxicillin-pot Take 1 tablet (500 mg 16 [...] 3 (three) times a day before meals. torsemide (DEMADEX) 20 Take 2 tablets (40 mg 0 12/11/2021 mg tablet total) by mouth daily. *HOLD until evaluated by your Peritoneal Dialysis Team* amoxicillin (AMOXIL) Take 4 capsules by 0 019 12/11/2021 500 mg capsule mouth. Prior to dental work omeprazole (PriLOSEC) Take 20 mg by mouth 0 12/0712/11/[address] capsule daily. documented as of this encounter Progress Notes Shanon Turner APRN, CBaileyNBaileyP. - 12/08/2021 9:46 AM CDT SUBJECTIVE Mr. Castro was seen and examined in his hospital room this morning. He tells me that he is tolerating his PD treatments well. He denies any current nausea, abdominal pain, dyspnea, chest pain, muscle cramping, or lightheadedness. I have reviewed the current medication list. OBJECTIVE Admission Weight: 79.3 kg Current Weight: 79 kg VITAL SIGNS Temperature: [36.5 ??C-36.7 ??C] 36.7 ??C Resp Rate: [15-16] 15 Blood Pressure: (106-120)/(58-63) 117/63 SpO2: [97 %-99 %] 97 % Flow Rate (L/min): [0 L/min] 0 L/min Pulse Rate: [60-63] 63 Intake/Output Summary (Last 24 hours) at 12/08/2021 0946 Last data filed at 12/08/2021 0635 Gross per 24 hour Intake 340 ml Output 2496 ml Net -2156 ml PHYSICAL EXAM General: Mr. Castro is alert and oriented. Resting in the bed. Does not appear in acute distress. Cardiovascular: Regular rate and rhythm. Respiratory: Clear to auscultation throughout lung ramirez bilaterally. Respirations are regular and unlabored. Breathing on room air. Extremities: No edema present in bilateral lower extremities. Abdomen: Bowel sounds present. Catheter exit site is covered by dressing, dressing is clean dry and intact. Nondistended and nontender to palpation. DIAGNOSTICS I have reviewed labs. Latest Reference Range & Units 12/06/21 04:17 Sodium, S 135 - 145 mmol/L 139 Potassium, S 3.6 - 5.2 mmol/L 3.9 Chloride, S 98 - 107 mmol/L 99 Bicarbonate, S 22 - 29 mmol/L 28 Anion Gap 7 - 15 12 BUN (Blood Urea Nitrogen), S 8 - 24 mg/dL 40 (H) Creatinine, S 0.74 - 1.35 mg/dL 4.52 (H) EGFR-Black/ >=60 mL/min/BSA <15 (L) [1] EGFR-Non Black/ >=60 mL/min/BSA <15 (L) [2] Calcium, Total, S 8.8 - 10.2 mg/dL 8.1 (L) Glucose, S 70 - 140 mg/dL 106 Phosphorus (Inorganic), S 2.5 - 4.5 mg/dL 4.8 (H) Albumin, S 3.5 - 5.0 g/dL 2.7 (L) ASSESSMENT / PLAN #1 End-stage renal disease secondary to??nephrosclerosis, maintained on??peritoneal dialysis since??08/2021 #2 Admitted on??2021 for acute weakness, found to have complex empyema?? 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 Castro underwent peritoneal dialysis last evening utilizing 1.5% Dianeal. He ultrafiltrate at 1550 mLs total. He was net negative 1950 mL yesterday. He produced 250 mL of urine yesterday and has produced an additional 640 mL since midnight. We are resuming his torsemide. We will continue with 1.5% Dianeal in an effort to minimize his ultrafiltration if he continues to stay in the hospital. He will continue his current peritoneal dialysis prescription of 8 hours, 4 exchanges of 1.5 L each.Will continue to use 1.5% Dianeal solution. Phosphorus 4.8 mg/dL and calcium 8.1 mg/dL on December 06. PTH 100 on December 07 while he is in the hospital. PTH was 154 on September 22, 2021 per outside medical record. New recommendations: -- PD tonight as outlined above -- Please obtain a BMP with phosphorus with AM labs -- Ok to remove renal restrictions from diet with careful monitoring of electrolytes -- Continue oral Calcitrol 0.25 mcg 3 times per week -- Resume his oral torsemide 40 mg daily in the outpatient setting when he dismisses today as recommended by Nephrology financial analysis consultant Dr. Kennedy. Addendum: Continue to hold his oral torsemide 40 mg daily in the setting of soft [facility] dialysis nurse in the outpatient setting will be contacted for updates of his antihypertensive medication regimen plan. Continued recommendations: -- Peritoneal dialysis x7 nights per week. --??Dose medications for patients that have ESRD, on peritoneal dialysis -- No fluid restriction --??Dialyvite one tablet each evening --??Daily weights, standing --??Strict I&O monitoring --??Gentamicin??0.1 %??cream to be applied to PD catheter site daily. Please have??nursing staff clean PD catheter site with soap and water??daily prior to applying??gentamicin cream to site??and coverwith gauze dressing.?? --??Continue calcitriol 0.25 mcg p.o. 3 times per week -- Holding outpatient ??hydralazine 10 mg p.o. t.i.d..??and torsemide 40 mg daily -- Continues taking metoprolol tartrate 25 mg p.o. b.i.d. and isosorbide dinatrate 5 mg p.o. t.i.d.. Plan was reviewed with Dr. Kennedy nephrology financial analysis consultant. For questions or concerns, please page the Nephrology A ELECTRICAL APPLIANCE PREPARER/PA pager, [phone] or you may text page by clicking here. Associated attestation - Yamileth Kennedy M.D., Ph.D. - 12/08/2021 1:52 PM CDT I was the supervising physician in the delivery of the service. Diana Reed RDN, LD - 12/07/2021 2:55 PM CDT Clinical Nutrition: Education/Counseling DESCRIPTION Mr. Castro is being seen for low fiber/fundo to pureed diet education. ASSESSMENT Patient was somewhat receptive to diet education. He stated some concern due to some solid foods like toast, crunchy granola bar and sugar cookie are better tolerated than foods like mashed potatoes with additional gravy and cooked cereal thinned with milk which he comments are to sticky to eat and result in issues. Patient was encouraged to continue to include daily renal friendly LiquaCel x 2 whichprovides 100 calories and 16 gm protein each. See patient education flowsheet for details. Gasoline Finisher assisted with ordering late afternoon meal and breakfast. Patient stops eating by 3-4 pm and sits upright after all meals and while asleep. PLAN If patient remains hospitalized, may consider transitioning to regular diet to allow foods of his tolerance and preference. For questions about patient's nutritional care please contact pager [phone] on weekdays or [phone] on weekends/holidays. Juan Pablo Giron, Pharm.D., R.Ph. - 12/07/2021 1:00 PM CDT Warfarin Dosing Progress Note: More information: David Castro is a 81 y.o. male who was admitted to the hospital on 2021. Hospital Pharmacy has been consulted for inpatient warfarin management and monitoring. Warfarin Indication: Atrial fibrillation (AF) Other indication (comments): No data recorded Type of therapy: Continuation Prior average daily dose: 1.5 Comorbidities: Poor nutrition state (e.g. several days or more of significantly reduced dietary intake) Are any of these comorbidities new with admission? No Are there any new medication interactions with admission? Yes Target INR: 2 - 3 Day of therapy: 5 and beyond Drug interactions include the following: Strong Potentiator (From admission, onward) None Moderate Potentiators (From admission, onward) None Potentiating (From admission, onward) Start Dose/Rate Route Frequency Ordered Stop 12/02/21 0900 allopurinoL tablet 100 mg (ZYLOPRIM) 100 mg oral Daily 12/02/21 0059 12/02/21 0800 piperacillin-tazobactam in dextrose (iso-osm) IVPB 2.25 g (ZOSYN) 2.25 g 100 mL/hr over 0.5 Hours intravenous Every 8 hours 12/02/21 0228 Enzyme Inducers (From admission, onward) None Binders (From admission, onward) None Vitamin K-Containing Medications (168h ago, onward) None Antiplatelets & Anticoagulants (168h ago, onward) Start Dose/Rate Route Frequency Ordered Stop 12/06/21 1700 warfarin tablet 1 mg (COUMADIN) 1 mg oral Once 12/06/21 1018 12/06/21 1740 12/05/21 1700 warfarin tablet 0.5 mg (COUMADIN) 0.5 mg oral Once 12/05/21 1039 12/05/21 1659 12/04/21 1700 warfarin tablet 0.5 mg (COUMADIN) 0.5 mg oral Once 12/04/21 1131 12/04/21 1657 12/03/21 1700 warfarin (COUMADIN) NO Dose Today oral Once 12/03/21 0935 12/03/21 1610 12/02/21 1700 warfarin tablet 0.5 mg (COUMADIN) 0.5 mg oral Once 12/02/21 1211 12/02/21 1702 12/02/21 1130 warfarin management (COUMADIN) oral Daily 12/02/21 1118 INR reversal agents were not given. Warfarin Reversal Agent Administrations (last 168 hours) Vitamin K and K-Centra None FFP Administrations During Encounter (Filter): EAP GENERAL TRANSFUSE FFP Medications Shown None Warfarin Administrations (last 168 hours) Date/Time Action Medication Dose 12/06/21 1740 Given warfarin tablet 1 mg (COUMADIN) 1 mg 12/05/21 1659 Given warfarin tablet 0.5 mg (COUMADIN) 0.5 mg 12/04/21 1657 Given warfarin tablet 0.5 mg (COUMADIN) 0.5 mg 12/02/21 1702 Given warfarin tablet 0.5 mg (COUMADIN) 0.5 mg INR (no units) Date Value Status 12/07/2021 1.5 Final 12/06/2021 2.1 Final 12/05/2021 2.6 Final 12/04/2021 3.1 Final 12/03/2021 3.6 Final 2021 3.0 Final A/P: INR has decreased to 1.5 today in the setting of conservative warfarin dosing and held warfarindose on 12/03. Will increase warfarin dose to 1.5 mg for this evening. Matthew Giron Pharm.D., R.Ph. Contact me via secure chat with any questions about this note. Yue Perez O.T., MOT - 12/07/2021 12:48 PM CDT OT Dysphagia Monitor Note: Re-consulted for video swallow study this date. It appears that gastrointestinal has been consulted and esophagram was completed. Leak was ruled out and gastrointestinal reported based on esophagram from last year,??report alludes to dilated esophagus and stasis, which would coincide with his symptoms description of spontaneous regurgitation. It appears his aspiration pneumonia is due to chronic achalasia and regurgitation/esophageal phase and not oral pharyngeal phase as he is not showing symptoms. It does not appear video swallow study would be of benefit at this time as it does not appear to be an oral or pharyngeal concern. Spoke with primary service (Medicine 8) regarding this concern and they reported the video swallow would not provide any more information or change our management, so we can hold off for now. Gastrointestinal has recommended a softer diet which patient is currently on. We will sign off at this time. Thank you for involving us in the care of Mr. Castro. Jaqueline Fontanez M.D. - 12/07/2021 10:37 AM CDT Images from the original note were not included. Pleural Service/Interventional Pulmonology Service Consult Note SUBJECTIVE Referral Source: Jamal Andujar, DWIGHT, C.N.P. Reason for Consult: Suspected empyema Interval History Mr Castro is an 81 y/o male with a pmhx of ESRD on peritoneal dialysis, HFrEF, atrial fibrillation on warfarin, achalasia and esophageal motility who was admitted for evaluation of weakness. Interventional pulmonology was consulted for evaluation of potential empyema. Patient has done well. Chest tube output has been 160cc/24hr with no air leak. Pigtail is clogged and unable to be flushed. On bedside ultrasound, there is little to no pleural effusion left. OBJECTIVE PHYSICAL EXAMINATION Vital Signs: BP 111/63 Pulse 65 Temp 36.4 ??C (Oral) Resp 18 Ht 167.6 cm Wt 79 kg SpO2 98% BMI 28.12 kg/m?? General: pleasant, sitting in bed with and friend at side Pulmonary: no audible breathing, no increased work of breathing, pigtail clogged and unable to be flushed DIAGNOSTICS I have reviewed relevant laboratory, imaging, and other diagnostics as applicable to this consultation. CT 12/03/21 shows improvement in the pneumothorax component. CXR 12/05/21 AM: small persistent basilar right hydropneumothorax. Trace left effusion/pleural thickening. ASSESSMENT / PLAN Hydropneumothorax s/p 12F pigtail 12/03/21 Exudative complicated right sided parapneumonic effusion likely 2/2 chronic aspiration Weakness Esophageal motility disorder Dysphagia ESRD on peritoneal dialysis Paroxysmal atrial fibrillation on anticoagulation Essential hypertension Anemia of chronic disease HFrEF Patient did have a CT chest on for which we do not have images for. This CT was performedfor evaluation of a potential right lower lobe mass. However, as per reading, there was no mass and there was chronic volume loss within the right lower lobe and a decreased size in a right sided pleural effusion when compared to CT 04/15/2019 and CXR 05/17/2021. As per outside notes, patient's pleural effusion that was too small to be evacuated via thoracentesis in 04/2021 was deemed to be 2/2 heart failure given concomitant pericardial effusion. Patient did, however, undergo a thoracentesis in 03/2019with removal of 900cc of clear serous pleural fluid when he was admitted to [facility] for heart failure (EF 25-30%). This pleural fluid was exudative in nature and lymphocytic predominant with negative cultures and cytology. Initially we performed a posterior right sided thoracentesis with evacuation of 300cc of serosanguinous exudative cloudy pleural fluid. Preliminary labs were pertinent for a pH of 7.27 with lymphocyticpredominant cell count. Labs and imaging (without being able to compare to prior images) in the setting of new sudden weakness are concerning for a potential underlying infection. Current CT shows thickening of the pleural lining which identifies this an an underlying inflammatory of chronic problem. However, if the patient previously had a hydropneumothorax, we would assume that the space would havefilled up with pleural fluid, especially in the setting of his ESRD and heart failure. Hence, it is unclear why he has this air component which was not present on CT on 04/2021. Differential includes: gas forming infection, ex vacuo, component broncho-pleuric fistula, esophageal-pleural fistula. Patient is undergoing barium swallow evaluation to rule out esophageal pleural fistula, a broncho- pleuric fistula is unlikely given no continuous air leak and cultures so far have been negative. Given the potential for an underlying infectious process based on the low pleural pH, the patient underwent placement of a posterior right sided 12F pigtail on 12/03/21. Cytology and inflammatory cascade has been negative, SPEP unremarkable and normal pleural glucose. Recommendations: - Pleuroperitoneal fluid leak less likely given pleural fluid sugar not significantly elevated to reflect PD dialysate fluid, albeit there is no consensus on what glucose cutoff could represent this. - He has passed a clamping trial so does not need the chest tube from a Ptx standpoint and the tubewas clogged. - Nephrology recommending Peritoneal Scintigraphy - Chest tube has been removed - Post- removal CXR -> no pneumothorax - F/U broad range pcr pleural study - Patient will need 3 weeks of antibiotics from 12/03/21 - Would continue zosyn while inpatient - May consider Augmentin or cefdinir + metronidazole as an outpatient - Patient to follow-up in 3 weeks in the pleural clinic with repeat chest CT The patient was seen and discussed with the supervising financial analysis consultant, Dr. Gonzales. We will sign off. Please contact [phone] with questions or concerns. Jaqueline Moseley M.D. [facility] Fellow Associated attestation - Chely Gonzales M.D., M.H.P.E. - 12/07/2021 12:25 PM CDT I saw and evaluated the patient, participating in the coughlin portions of the service. I reviewed the resident/fellow???s note. I agree with the resident/fellow???s findings and plan. #1 Right, complicated hydropneumothorax s/p 12-Fr US pgt 12/02/21 #2 Chronic lymphocytic right pleural exudate #3 ESRD on peritoneal dialysis #4 Achalasia s/p robot assisted Heller myotomy 4/15/21 #5 History of CHF with reduced EF #6 Atrial fibrillation on oral anticoagulation Mr. Castro's extensive evaluation for the cause of his hydropneumothorax has not revealed a definitive cause. Cultures have been negative, esophagram is negative, there is no air leak, SPEP is negative, connective tissue cascade was negative. The broad range PCR is still pending and he may still undergo peritoneal scintigraphy however it is not clear if this was a CPPE from aspiration pneumonia or less likely from translocation of air/fluid across the diaphragm from his PD. We do know the effusion is long standing (likely related to his ESRD) and he does have a visceral rind so I do not expect that we will get full lung expansion. We have had good drainage of the pleural fluid and I think the best next step would be to complete a 3 week course of antibiotics for a likely CPPE in the setting of aspiration and have close outpatient follow up in the pleural clinic at the end of the antibiotics. Given the low output we elected to remove the tube at the bedside today. A post pull CXR was ordered and demonstrated a small residual basilar pneumothorax which is to be expected given his visceral pleural rind. Please have him seen in pleural clinic for follow up with a repeat chest CT prior. We will sign off. Thank you for allowing us to participate in this patient's care. Marlyn Tellez - 12/07/2021 9:51 AM CDT Encounter: Initial Spiritual Care Contact Situation: Mr. Castro was preparing to order breakfast at the time of the visit and shared his hopes for discharging soon. He shared that he is feeling well so far today and is glad to see the sun shining. Esthetician/Skin Therapist initiated contact to introduce spiritual care department and to assess for potential spiritual care needs. Family: Mr. Castro's support system was at the bedside. [place] Tradition: Mr. Castro is Orthodox, per his chart. He shares that he's been able to watch his voodoo's services online and has found it to be comforting. Mr. Castro did not think he had any specific spiritual care needs at this time and was alerted to corporate attorney availability if any needs arise in the future. Plan: Will remain available for spiritual care as needed or requested. Chaplains can be contacted bypaging [phone] ([facility]) or [phone] ([place]). Jeannine Jay APRN, C.N.P., M.S.N. - 12/07/2021 8:14 AM CDT SUBJECTIVE Mr. Castro was seen and examined in his hospital room this morning. His family was present at his bedside during my visit. He tells me that he is tolerating his PD treatments well. He notes that last night was a rough night for him due to nausea and diarrhea after having PO contrast for his esophogram yesterday. He denies any current nausea, abdominal pain, dyspnea, chest pain, muscle cramping, or lightheadedness. We reviewed that we will continue to hold his torsemide in the setting of his diarrhea last night. I have reviewed the current medication list. OBJECTIVE Admission Weight: 79.3 kg Current Weight: 79 kg VITAL SIGNS Temperature: [36.4 ??C-36.6 ??C] 36.4 ??C Resp Rate: [18-20] 18 Blood Pressure: (111-123)/(63-68) 111/63 SpO2: [97 %-98 %] 98 % Flow Rate (L/min): [0 L/min] 0 L/min Pulse Rate: [62-92] 65 Intake/Output Summary (Last 24 hours) at 12/07/2021 0815 Last data filed at 12/07/2021 0758 Gross per 24 hour Intake 1560 ml Output 1199 ml Net 361 ml PHYSICAL EXAM General: Mr. Castro is alert and oriented. Resting in the bed. Does not appear in acute distress. Cardiovascular: Regular rate and rhythm. Respiratory: Clear to auscultation throughout lung ramirez bilaterally. Respirations are regular and unlabored. Breathing on room air. Extremities: No edema present in bilateral lower extremities. Abdomen: Bowel sounds present. Catheter exit site is covered by dressing, dressing is clean dry and intact. Nondistended and nontender to palpation. DIAGNOSTICS I have reviewed labs. Latest Reference Range & Units 12/06/21 04:17 Sodium, S 135 - 145 mmol/L 139 Potassium, S 3.6 - 5.2 mmol/L 3.9 Chloride, S 98 - 107 mmol/L 99 Bicarbonate, S 22 - 29 mmol/L 28 Anion Gap 7 - 15 12 BUN (Blood Urea Nitrogen), S 8 - 24 mg/dL 40 (H) Creatinine, S 0.74 - 1.35 mg/dL 4.52 (H) EGFR-Black/ >=60 mL/min/BSA <15 (L) [1] EGFR-Non Black/ >=60 mL/min/BSA <15 (L) [2] Calcium, Total, S 8.8 - 10.2 mg/dL 8.1 (L) Glucose, S 70 - 140 mg/dL 106 Phosphorus (Inorganic), S 2.5 - 4.5 mg/dL 4.8 (H) Albumin, S 3.5 - 5.0 g/dL 2.7 (L) ASSESSMENT / PLAN #1 End-stage renal disease secondary to??nephrosclerosis, maintained on??peritoneal dialysis since??08/2021 #2 Admitted on??2021 for acute weakness, found to have complex empyema?? 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 Castro underwent peritoneal dialysis last evening utilizing 1.5% Dianeal. He ultrafiltrate at 37 mLs total. He was net positive 311 mL yesterday. He produced 750 mL of urine yesterday and has produced an additional 250 mL since midnight. We are continuing to hold his torsemide. We will continue with 1.5% Dianeal in an effort to minimize his ultrafiltration. He will continue his current peritoneal dialysis prescription of 8 hours, 4 exchanges of 1.5 L each.Will continue to use 1.5% Dianeal solution. Given the low glucose in the pleural fluid, there is low suspicion for a pleura- peritoneal communication. Per discussion with the primary service, pulmonary intervention service does not feel that a peritoneal scintigraphy is necessary at this time and that the likely cause of his effusion is likely from aspiration. The only way to know definitively if this is peritoneal fluid is to perform the scintigraphy, however we will defer to pulmonary if this needed at this time or not. Should there be persistent issues, this could be explored further in the future. New recommendations: -- PD tonight as outlined above -- Please obtain a BMP with phosphorus with AM labs -- Ok to remove renal restrictions from diet with careful monitoring of electrolytes Continued recommendations: -- Peritoneal dialysis x7 nights per week. --??Dose medications for patients that have ESRD, on peritoneal dialysis -- No fluid restriction --??Dialyvite one tablet each evening --??Daily weights, standing --??Strict I&O monitoring --??Gentamicin??0.1 %??cream to be applied to PD catheter site daily. Please have??nursing staff clean PD catheter site with soap and water??daily prior to applying??gentamicin cream to site??and coverwith gauze dressing.?? --??Continue calcitriol 0.25 mcg p.o. 3 times per week -- Holding outpatient ??hydralazine 10 mg p.o. t.i.d. and torsemide 40 mg p.o. daily.?? -- Continues taking metoprolol tartrate 25 mg p.o. b.i.d. and isosorbide dinatrate 5 mg p.o. t.i.d.. For questions or concerns, please page the Nephrology A ELECTRICAL APPLIANCE PREPARER/PA pager, [phone] or you may text page by clicking here. Associated attestation - Yamileth Kennedy M.D., Ph.D. - 12/07/2021 2:18 PM CDT I was the supervising physician in the delivery of the service. Maria G Adame P.A.-C., M.S. - 12/07/2021 7:34 AM CDT T Medicine 8 ([facility]) Progress Note SUBJECTIVE Interval history: Patient was seen on morning rounds. Overnight he had no acute events. He ate a grilled cheese yesterday and it had caused him some discomfort with swallowing. No fevers, shortness of breath, cough or chills. This morning he expresses sadness and that he is unable to eat at restaurants and frequently has to go to the clinic to clear his esophagus when food gets stuck. Later in the morning, discussed risks and benefits of a PEG in the future with patient and . Currently, patient is not ready for this. Review of symptoms positive for what is listed in HPI, otherwise negative. I have reviewed the current medication list. OBJECTIVE VITAL SIGNS Temperature: [36.4 ??C-36.6 ??C] 36.4 ??C Resp Rate: [18-20] 18 Blood Pressure: (111-123)/(63-68) 111/63 SpO2: [97 %-98 %] 98 % Flow Rate (L/min): [0 L/min] 0 L/min Weight: [79 kg] 79 kg BMI (Calculated): [28.1 kg/m??] 28.1 kg/m?? Pulse Rate: [62-92] 65 PHYSICAL EXAM General: No acute distress. Mental: [...] / PLAN Mr. Castro is hospitalized on [place] [id number] ([facility]) for evaluation and management of Empyema Pleural(HCC). 81 year old male admitted for weakness and new right sided pleural effusion. He was brought to the ED after he was unable to stand to get out of his car due to acute onset of lower extremity weakness. Work up in the ED was notable for Initially He is admitted to [place] [address] for further evaluation. ?? #1 Weakness, generalized #2 Chronic Failure Renal End Stage Renal [...] and related to dialysis, anti-hypertensive medications, and right pleural infection. 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 No growth on cultures, and no other clinical signs for infection. Chest CT from did not demonstrate presence of fistula. Pneumothorax is resolving. Suspicion for esophageal leak ruled out with esophogram on 12/06. Culture-negative empyema also remains a possibility. Low suspicion for HF exacerbation. Less likely peritoneal leak given low glucose in pleural fluid. -appreciate IP evaluation -Chest tube removed today -plan to continue antibiotics for total of 3 weeks status post chest tube placement (end date 12/23/2021). Continue Zosyn while inpatient, switch to Augmentin or cefdinir/Flagyl as outpatient. -connective tissue cascade unremarkable -remains on Zosyn, renally adjusted (day 5) -follow up with pleural clinic and repeat CT in 3 weeks -follow up in Esophagus clinic -appreciate log deck tender to discuss diet education ?? #13 Elevated Alkaline Phosphatase Has been elevated as high as 300's in the past, with subsequent downtrend. This admission alk phos is 406, GGT 169. The remainder of his hepatic function is stable. -RUQ ultrasound unremarkable -Recheck hepatic function panel tomorrow ?? #14 Atrial Fibrillation Paroxysmal (HCC) INR subtherapeutic at 1.5. Chadsvasc 3. -Warfarin per pharmacy protocol #15 Apnea Sleep Obstructive -CPAP on hold given acute pulmonary issues above #16 Enlarged paraesophageal lymph node on CT imaging -Follow-up imaging may be helpful to ensure resolution Diet: Adult Diet Regular; Post Fundoplication Tubes/lines: PIV VTE prophylaxis: therapeutic anticoagulation Current Activity/Mobility: BMAT Level 4 (Able to stand and walk; needs staff assist if fall risk factors identified) Fall Injury Prevention: I have discussed My Plan for Safe Activity with the patient. Disposition: Home Stable to discharge criteria (not yet met): Labs and Functional status The above plan of care was discussed with Dr. Lozoya, HIM financial analysis consultant. Counseling was provided [id number] at bedside regarding the plan of care as stated above. I personally spent over half of a total 35 minutes in counseling and coordination of care as documented above. Maria G Adame P.A.-C., M.S. [facility] 8 - [id number] [address] M.B.B.S. - 12/06/2021 3:58 PM CDT GASTROENTEROLOGY CONSULT FOLLOW-UP Date/Time: 12/06/2021 3:58 PM CDT Patient Name: David Castro : 1940 [employer] Esophagram 1. No evidence of extraluminal leak. 2. Dilated patulous esophagus with distal tapering consistent with history of achalasia. LABS Recent Labs 12/06/21 0417 12/05/21 0834 INR 2.1 2.6 NA 139 138 CL 99 101 BUN 40 H 41 H CREATININE 4.52 H 4.30 H CALCIUM 8.1 L 8.3 L ALBUMIN 2.7 L 2.8 L ASSESSMENT AND PLAN Very pleasant 81-year-old gentleman with achalasia status post myotomy in 1968 and then 2020 admitted with weakness, and found to have right-sided empyema ?? Despite myotomy last year, he has had episodes of esophageal food stasis and repeated episodes of aspiration leading to classical right lower lobe pneumonia and likely parapneumonic effusions. Indeed, on esophagram from last year, report alludes to dilated esophagus and stasis, which would coincide with his symptoms description of spontaneous regurgitation A repeat esophagram here was negative for esophageal leak. ?? He describes excellent adherence to lifestyle interventions suggesting upright, and not eating before bed, but also describes a liberal diet, and unfortunately that may be the actionable part of diet that we can intervene-notably by suggesting a soft pureed diet ?? PROBLEM LIST 1. History of achalasia, status post surgical myotomy to 2, most recently November 2020 2. Esophageal dysmotility and a peristalsis 3. Multiple episodes of aspiration pneumonia 4. Empyema right lower lobe ?? RECOMMENDATIONS 1. No concern for esophageal leak. Agree with pulmonology impression that his recurrent parapneumonic effusions are likely related to aspiration events related to end-stage achalasia. 2. Unfortunately, given this is in the setting of 2 myotomies, mainstay of management would be dietary modifications. Recommend he be educated regarding soft, low residue diet and achalasia/aspiration precautions. Floor dietitian could suggest a stent type diet to help with esophageal emptying as well. This patient was staffed with Dr. Gen Martell, with the recommendations discussed with the primaryteam. Thank you for involving us in the care of this patient. We will sign off at this time. Please page the GI consult pager at [phone] with any further questions or concerns. Evette Pham APRN, C.N.P., D.N.P. - 12/06/2021 11:17 AM CDT SUBJECTIVE Mr. Castro was seen and examined in his room. He underwent dialysis last night with a no fluid removal. He feels the dialysis went well, and he appreciates the dialysis staff. He is NPO for testing, and says he is thirsty. He continues with large urine output 1580 cc. He denies any chest pain, shortness of breath or swelling of extremities. I have reviewed the current medication list. OBJECTIVE Admission Weight: 79.3 kg Current Weight: 78 kg VITAL SIGNS Temperature: [36.2 ??C-36.6 ??C] 36.3 ??C Resp Rate: [16-18] 18 Blood Pressure: (115-130)/(54-65) 115/54 SpO2: [96 %-98 %] 96 % Flow Rate (L/min): [0 L/min] 0 L/min Pulse Rate: [65-71] 65 Intake/Output Summary (Last 24 hours) at 12/06/2021 1118 Last data filed at 12/06/2021 0900 Gross per 24 hour Intake 623 ml Output 732 ml Net -109 ml PHYSICAL EXAM General: Alert and oriented, in no acute distress Extremities: There is no edema of the lower extremities bilaterally Vessels: PD catheter covered with dressing. Patient reports no issues.. DIAGNOSTICS I have reviewed labs. Latest Reference Range & Units 12/06/21 04:17 Sodium, S 135 - 145 mmol/L 139 Potassium, S 3.6 - 5.2 mmol/L 3.9 Chloride, S 98 - 107 mmol/L 99 Bicarbonate, S 22 - 29 mmol/L 28 Anion Gap 7 - 15 12 BUN (Blood Urea Nitrogen), S 8 - 24 mg/dL 40 (H) Creatinine, S 0.74 - 1.35 mg/dL 4.52 (H) EGFR-Black/ >=60 mL/min/BSA <15 (L) [1] EGFR-Non Black/ >=60 mL/min/BSA <15 (L) [2] Calcium, Total, S 8.8 - 10.2 mg/dL 8.1 (L) Glucose, S 70 - 140 mg/dL 106 Phosphorus (Inorganic), S 2.5 - 4.5 mg/dL 4.8 (H) Albumin, S 3.5 - 5.0 g/dL 2.7 (L) ASSESSMENT / PLAN #1 End-stage renal disease secondary to??nephrosclerosis, maintained on??peritoneal dialysis since??08/2021 #2 Admitted on??2021 for acute weakness, found to have complex empyema?? 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 Vosberg will continue his current peritoneal dialysis prescription of 8 hours, 4 exchanges of 1.5 L each. Will continue to use 1.5% Dianeal solution. New recommendations: -- Recommend nuclear scan to assess pleura and peritoneum communication. Please feel free to discusswith Dr. Yamileth Kennedy, hand straightener and IR. -- As patient NPO, please hold torsemide. May need additional IV fluids. -- When reinstating oral intake, no fluid restriction. Continued recommendations: -- Peritoneal dialysis x7 nights per week. --??Dose medications for patients that have ESRD, on peritoneal dialysis --??Renal dialysis diet to include restrictions of: 90 mEq Na, 100 g protein, 80-100 mg phosphorus.??No potassium restriction currently needed. --??Dialyvite one tablet each evening --??Daily weights, standing --??Strict I&O monitoring --??Gentamicin??0.1 %??cream to be applied to PD catheter site daily. Please have??nursing staff clean PD catheter site with soap and water??daily prior to applying??gentamicin cream to site??and coverwith gauze dressing.?? --??Continue calcitriol 0.25 mcg p.o. 3 times per week-- please adjust dosing as it is currently ordered as TID three times weekly -- Continues holding??hydralazine 10 mg p.o. t.i.d. Will hold torsemide 40 mg p.o. daily.?? -- Continues taking metoprolol tartrate and isosorbide dinatrate. For questions or concerns, please page the Nephrology A ELECTRICAL APPLIANCE PREPARER/PA pager, [phone] or you may text page by clicking here. Associated attestation - Yamileth Kennedy M.D., Ph.D. - 12/06/2021 6:01 PM CDT I reviewed the case with the resident/fellow but did not see the patient. I agree with the assessment and plan as documented in the ELECTRICAL APPLIANCE PREPARER's note. Jaqueline Fontanez M.D. - 12/06/2021 10:32 AM CDT Images from the original note were not included. Pleural Service/Interventional Pulmonology Service Consult Note SUBJECTIVE Referral Source: Jamal Andujar, DWIGHT, C.N.P. Reason for Consult: Suspected empyema Interval History Mr Castro is an 81 y/o male with a pmhx of ESRD on peritoneal dialysis, HFrEF, atrial fibrillation on warfarin, achalasia and esophageal motility who was admitted for evaluation of weakness. Interventional pulmonology was consulted for evaluation of potential empyema. Patient has done well. Chest tube output has been 180cc/24hr with no air leak. Initially, the pigtail was difficult to flush, however, when we returned to see the patient we had no difficulty flushing. OBJECTIVE PHYSICAL EXAMINATION Vital Signs: BP (!) 115/54 Pulse 65 Temp 36.3 ??C (Oral) Resp 18 Ht 167.6 cm Wt 78 kg SpO2 96% BMI 27.77 kg/m?? General: pleasant, sitting in bed Pulmonary: no audible breathing, no increased work of breathing Bedside ultrasound demonstrated a tiny to minimal pleural effusion. Images were saved and uploaded to [employer]. DIAGNOSTICS I have reviewed relevant laboratory, imaging, and other diagnostics as applicable to this consultation. CT 12/03/21 shows improvement in the pneumothorax component. CXR 12/05/21 AM: small persistent basilar right hydropneumothorax. Trace left effusion/pleural thickening. ASSESSMENT / PLAN Hydropneumothorax s/p 12F pigtail 12/03/21 Exudative complicated right sided parapneumonic effusion likely 2/2 chronic aspiration Weakness Esophageal motility disorder Dysphagia ESRD on peritoneal dialysis Paroxysmal atrial fibrillation on anticoagulation Essential hypertension Anemia of chronic disease HFrEF Patient did have a CT chest on for which we do not have images for. This CT was performedfor evaluation of a potential right lower lobe mass. However, as per reading, there was no mass and there was chronic volume loss within the right lower lobe and a decreased size in a right sided pleural effusion when compared to CT 04/15/2019 and CXR 05/17/2021. As per outside notes, patient's pleural effusion that was too small to be evacuated via thoracentesis in 04/2021 was deemed to be 2/2 heart failure given concomitant pericardial effusion. Patient did, however, undergo a thoracentesis in 03/2019with removal of 900cc of clear serous pleural fluid when he was admitted to [facility] for heart failure (EF 25-30%). This pleural fluid was exudative in nature and lymphocytic predominant with negative cultures and cytology. Initially we performed a posterior right sided thoracentesis with evacuation of 300cc of serosanguinous exudative cloudy pleural fluid. Preliminary labs were pertinent for a pH of 7.27 with lymphocyticpredominant cell count. Labs and imaging (without being able to compare to prior images) in the setting of new sudden weakness are concerning for a potential underlying infection. Current CT shows thickening of the pleural lining which identifies this an an underlying inflammatory of chronic problem. However, if the patient previously had a hydropneumothorax, we would assume that the space would havefilled up with pleural fluid, especially in the setting of his ESRD and heart failure. Hence, it is unclear why he has this air component which was not present on CT on 04/2021. Differential includes: gas forming infection, ex vacuo, component broncho-pleuric fistula, esophageal-pleural fistula. Patient is undergoing barium swallow evaluation to rule out esophageal pleural fistula, a broncho- pleuric fistula is unlikely given no continuous air leak and cultures so far have been negative. Given the potential for an underlying infectious process based on the low pleural pH, the patient underwent placement of a posterior right sided 12F pigtail on 12/03/21. Cytology has been negative, SPEPunremarkable and normal pleural glucose. Recommendations: - Pleuroperitoneal fluid leak less likely given pleural fluid sugar not significantly elevated to reflect PD dialysate fluid. Await esophagogram and video swallow eval. - He has passed a clamping trial so does not need the chest tube from a Ptx standpoint. - We could potentially remove chest tube but will hold off for now until further work up. - 12F pigtail placed to -20 cm of H20 suction on the posterior right chest a. Please flush with 10cc of sterile saline tid b. Pigtail will remain in place until esophageal fistula is rule out. An extended pcr has been added on to pleural fluid - F/U connective tissue disease cascade in view of presence of pericardial effusion, although unlikely that patient has new autoimmune disorder - F/U broad-range bacterial PCR from the pleural fluid - Patient will need 3 weeks of antibiotics from 12/03/21 - Would continue zosyn while inpatient - May consider Augmentin or cefdinir + metronidazole as an outpatient - Patient to follow-up in 3 weeks in the pleural clinic with repeat chest CT The patient was seen and discussed with the supervising financial analysis consultant, Dr. Gonzales. We will continue to follow. Please contact [phone] with questions or concerns. Jaqueline Moseley M.D. [facility] Fellow Associated attestation - Chely Gonzales M.D., M.H.P.E. - 12/06/2021 11:16 AM CDT I saw and evaluated the patient, participating in the coughlin portions of the service. I reviewed the resident/fellow???s note. I agree with the resident/fellow???s findings and plan. #1 Right, complicated hydropneumothorax s/p 12-Fr US pgt 12/02/21 #2 Chronic lymphocytic right pleural exudate #3 ESRD on peritoneal dialysis #4 Achalasia s/p robot assisted Heller myotomy 12/03/20 #5 History of CHF with reduced EF #6 Atrial fibrillation on oral anticoagulation The etiology of the right hydropneumothorax is not entirely clear but likely related to complicated parapneumonic effusion in the setting of ongoing aspiration or possible esophageal pleural fistula. He has no evidence of an airleak with makes a BP fistula less likely. He is scheduled for an esophagram today which will help us rule out an esophageal leak. If this is negative then I would presume thisis likely related to on-going aspiration given his known achalasia. Either way the effusion has beeneffectively drained via the pigtail and we will plan on three weeks of antibiotics from the day of tube placement. In addition he will require close follow up in the pleural clinic with a repeat CT chest at the end of his antibiotic course. For now please keep the tube to suction and we will continue to follow. Soo Plaza, Mariah.D., R.Ph. - 12/06/2021 10:11 AM CDT Pharmacist Progress Note Reason for admission: increased weakness, recent fall PMH: P-A-fib on Warfarin, HTN, ELENI, known Achalasia and significant esophageal motility disorder/dysphagia and frequent aspiration pneumonia events in the past OBJECTIVE Home medications: medication list completed by Provider ??? New: abx Prophylaxis: warfarin (INR therapeutic) LBM: 12/05/21 Warfarin Warfarin Indication: Atrial fibrillation (AF) Type of therapy: Continuation Prior average daily dose: 1.5 Comorbidities: Poor nutrition state (e.g. several days or more of significantly reduced dietary intake) Are any of these comorbidities new with admission? No Are there any new medication interactions with admission? Yes Target INR: 2 - 3 Day of therapy: 4 Notable drug interactions include the following: Zosyn Warfarin Administrations (last 168 hours) Date/Time Action Medication Dose 12/05/21 1659 Given warfarin tablet 0.5 mg (COUMADIN) 0.5 mg 12/04/21 1657 Given warfarin tablet 0.5 mg (COUMADIN) 0.5 mg 12/02/21 1702 Given warfarin tablet 0.5 mg (COUMADIN) 0.5 mg INR (no units) Date Value Status 12/06/2021 2.1 Final 12/05/2021 2.6 Final 12/04/2021 3.1 Final 12/03/2021 3.6 Final 2021 3.0 Final ASSESSMENT / PLAN 1.) R pleural effusion: Continues Zosyn 2.25g Q8H (D5). S/p thoracentesis 12/02 w/ 250 mL removed and(-) organisms on gram stain, cultures NGTD, PCR pending. C/f esophageal leak - esophagram today. R pigtail drain placed 12/02 2.) ESRD on PD: Continues home calcitriol 0.25 mcg MWF, torsemide 40 mg/d. Phos 4.8. 3.) Paroxysmal AFIB: metoprolol 25 mg BID. Warfarin per pharmacy protocol - admit INR 3 (goal 2-3) w/ home dosing 1 mg Tues/Thurs/Sun and 2 mg all other days. CHADS-VASc 3. INR this AM down to 2.1 - will give warfarin 1 mg this evening. 4.) HTN, CV: continues home metoprolol BID, isordil TID, torsemide. Holding hydralazine. 5.) Constipation: Miralax daily Soo Plaza, PharmD [phone] Simran Helm P.A.-C., M.S. - 12/06/2021 7:44 AM CDT [facility] Medicine 8 ([facility]) Progress Notes SUBJECTIVE The [facility] Medicine 8 ([facility]) service evaluated Mr. Castro this morning on rounds. He continues to feel well. He is NPO awaiting esophagram study today. He denies recurrence of his bilateral lower extremity weakness. I reviewed the current medication list. 12 point review of systems is negative except for pertinent positives listed above. OBJECTIVE VITAL SIGNS Temperature: [36.2 ??C-36.6 ??C] 36.3 ??C Resp Rate: [16-18] 18 Blood Pressure: (115-130)/(54-65) 115/54 SpO2: [96 %-98 %] 96 % Flow Rate (L/min): [0 L/min] 0 L/min Pulse Rate: [65-71] 65 Intake/Output Last 24 Hours: Date 12/05/21 07 - 12/06/21 0659 12/06/21 07 - 12/07/21 0659 Shift 6189-1288 7608-2476 3787-1344 24 Hour Total 6499-2240 6875-4037 0932-0331 24 Hour Total INTAKE P.O. 180 240 420 Other 10 223 233 20 20 Intermittent Medications 50 50 50 150 50 50 Shift Total(mL/kg) 240(3.1) 290(3.7) 273(3.5) 803(10.3) 70(0.9) 70(0.9) OUTPUT Urine(mL/kg/hr) 750 750 Urine 750 750 Chest Tube 180 180 Dialysis 2 0 2 Shift Total(mL/kg) 2(0) 180(2.3) 182(2.3) 750(9.6) 750(9.6) NET 240 288 93 592 -765 -914 Weight (kg) 78 78 78 78 78 78 78 78 Net IO Since Admission: -507 mL [12/06/21 1235] PHYSICAL EXAM General: Alert, interactive, no apparent distress. Skin: No rashes or lesions. HEENT: Sclera anicteric. Hearing grossly intact. Moist mucous membranes. Lungs: No respiratory distress. Lung exam is clear aside from faint crackles noted on the left lowerlung base. Chest tube draining serosanguineous fluid. Heart: Regular rate and rhythm. No murmurs appreciated. No extremity edema. Abdomen: Abdomen is soft, nondistended, nontender. No organomegaly. Mental: Mood and affect congruent. Alert and oriented. Attention intact. No evidence of disorganizedthinking. RASS 0. 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 ASSESSMENT / PLAN Mr. Castro is hospitalized on [place] [id number] ([facility]) for evaluation and management of Empyema Pleural(HCC). He was brought to the ED after he was unable to stand to get out of his car due to acute onset of lower extremity weakness. Additional workup in the ED concerning for recurrent pleural effusions/empyema as below. He is admitted to [place] [address] for further evaluation. #1 Weakness, generalized Improved with p.o. and fluid intake. He notes these episodes occurred each time after dialysis. Willcontinue to monitor. -Given that he has been NPO for several hours today, will give back gentle IVF to mitigate any further weakness #2 Recurrent right pleural effusion #3 Hydropneumothorax #3 Achalasia #4 Esophageal Motility Disorder #5 Dysphagia #6 History of prior systolic HF, now with improved EF Pleural fluid studies with low pH and elevated TNC, no robert pus noted. No growth on fluid cultures thus far, and no other clinical signs for infection. Chest CT from did not demonstrate presence of fistula. Pneumothorax is resolving. Suspicion for esophageal leak remains high. Culture-negative empyema also remains a possibility. -appreciate IP evaluation. Chest tube to remain in place until esophagram study complete. Also awaiting video swallow study. -plan to continue antibiotics for total of 3 weeks status post chest tube placement (end date 12/23/2021). Continue Zosyn while inpatient, switched to Augmentin or cefdinir/Flagyl as outpatient. -the concern for pleural peritoneal leak remains low given pleural fluid glucose level. Nephrology recommended further investigation with nuclear medicine scan. We will confer with our pulmonology colleagues. -connective tissue cascade is pending -remains on Zosyn, renally adjusted (day 5) Addendum: Esophogram returned negative for evidence of leak. Pulmonology and nephrology to discuss utility of NM study to evaluate for pleural-peritoneal leak (per nephrology, would not favor methyleneblue due to peritoneal irritation). Alternative study would be peritoneogram through Interventional R adiology. Will defer decision to Interventional Pulmonology team. #7 Elevated Alkaline Phosphatase Has been elevated as high as 300's in the past, with subsequent downtrend. This admission alk phos is 406, GGT 169. The remainder of his hepatic function is stable. -RUQ ultrasound unremarkable -Recheck hepatic function panel tomorrow #8 Chronic Failure Renal End Stage Renal Disease Dialysis Dependent (HCC) #9 Dialysis Peritoneal Status (HCC) #10 Anemia of chronic disease #11 Atrial Fibrillation Paroxysmal (HCC) #12 Hypertension Essential Primary Recently started on peritoneal dialysis in August 2021 due to CKD stage 5 with mild uremia and hypervolemia. Has been stable since. Blood pressures dipped lower yesterday. We will monitor his fluid status. -consult to nephrology for comanagement of dialysis needs -continue torsemide, lopressor, Warfarin per pharmacy protocol -Home hydralazine on hold -Renal dialysis diet, no fluid restriction #13 Apnea Sleep Obstructive -CPAP on hold given acute pulmonary issues above Diet: Regular Tubes/lines: PIV VTE prophylaxis: Warfarin PPI prophylaxis: Protonix Current Activity/Mobility: BMAT Level 4 (Able to stand and walk; needs staff assist if fall risk factors identified) Fall Injury Prevention: N/A - patient is not determined to be at risk of falling Disposition: Home Code status: Full Code Stable to discharge criteria (not yet met): Labs and Tests/procedures/consults Patient discussed with Arti Lozoya M.D. who is in agreement with plan of care detailed above. I provided [id number] counseling at bedside regarding the plan of care. The patient acknowledged an understanding and agreed with the plan of care listed above. I personally spent over half of a total 40 minutes in counseling and coordination of care as documented above. Simran Helm M.S., PA-C Pager: [phone] Evette Pham APRN, C.N.P., D.N.P. - 12/05/2021 1:31 PM CDT SUBJECTIVE Mr. Castro was seen and examined in his room. He underwent peritoneal dialysis last night with no fluid removal with dialysis and a post dialysis weight of 78.0 kg, which he tolerated well. Last nightwas the best night of dialysis yet. If appears he is becoming more comfortable with our dialysis crew. Continues with excellent urine output, with 1800 cc of urine thus far today, and 1575 cc of urine yesterday. He was encouraged to increase his fluid intake. He states he does not like city water, and relies onbottle water. I pointed out four bottles of water in his room that he could continue consuming. The patient is in good spirits today, very talkative. He states he feels very well. He understands there is further testing and will likely be in the hospital a few more days. I note his home Dry weight is listed at 79.5 kg. I have reviewed the current medication list. OBJECTIVE Admission Weight: 79.3 kg Current Weight: 78.6 kg VITAL SIGNS Temperature: [36.2 ??C-36.3 ??C] 36.2 ??C Resp Rate: [16-18] 18 Blood Pressure: (93-111)/(53-62) 93/53 SpO2: [94 %-97 %] 94 % Flow Rate (L/min): [0 L/min] 0 L/min Pulse Rate: [59-63] 60 Intake/Output Summary (Last 24 hours) at 12/05/2021 1332 Last data filed at 12/05/2021 0903 Gross per 24 hour Intake 370 ml Output 929 ml Net -559 ml PHYSICAL EXAM General: Alert and oriented, in no acute distress. Sitting in recliner chair. Heart: Regular rate and rhythm Lungs: Somewhat diminished on right; chest tube in place; left lung clear Extremities: There is no edema of the lower extremities bilaterally Vessels: normal exam. PD cathter covered with a bandage, I could not visualize the exit site. DIAGNOSTICS I have reviewed labs. Latest Reference Range & Units 12/05/21 08:34 Sodium, S 135 - 145 mmol/L 138 Potassium, S 3.6 - 5.2 mmol/L 3.8 Chloride, S 98 - 107 mmol/L 101 Bicarbonate, S 22 - 29 mmol/L 28 Anion Gap 7 - 15 9 BUN (Blood Urea Nitrogen), S 8 - 24 mg/dL 41 (H) Creatinine, S 0.74 - 1.35 mg/dL 4.30 (H) EGFR-Black/ >=60 mL/min/BSA <15 (L) [1] EGFR-Non Black/ >=60 mL/min/BSA <15 (L) [2] Calcium, Total, S 8.8 - 10.2 mg/dL 8.3 (L) Glucose, S 70 - 140 mg/dL 117 Phosphorus (Inorganic), S 2.5 - 4.5 mg/dL 4.0 Albumin, S 3.5 - 5.0 g/dL 2.8 (L) ASSESSMENT / PLAN #1 End-stage renal disease secondary to??nephrosclerosis, maintained on??peritoneal dialysis since??08/2021 #2 Admitted on??2021 for acute weakness, found to have complex empyema?? 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 Patient needs to consume more fluids. Continued recommendations: -- Peritoneal dialysis x7 nights per week. --??Dose medications for patients that have ESRD, on peritoneal dialysis --??Renal dialysis diet to include restrictions of: 90 mEq Na, 100 g protein, 80-100 mg phosphorus.??No potassium restriction currently needed. --??Dialyvite one tablet each evening --??Daily weights, standing --??Strict I&O monitoring --??Gentamicin??0.1 %??cream to be applied to PD catheter site daily. Please have??nursing staff clean PD catheter site with soap and water??daily prior to applying??gentamicin cream to site??and coverwith gauze dressing.?? -- Please review potassium supplementation with nephrology in the setting of ESRD. I note that he received 40 mEq of potassium chloride this morning --??Continue calcitriol 0.25 mcg p.o. 3 times per week-- please adjust dosing as it is currently ordered as TID three times weekly -- Continues holding??hydralazine 10 mg p.o. t.i.d. -- Continues taking isosorbide dinitrate 5 mg p.o. t.i.d., metoprolol tartrate 25 mg p.o. b.i.d. andtorsemide 40 mg p.o. daily? Disposition: --??Please keep Nephrology informed regarding??'s disposition as it becomes known so that we can ensure that their outpatient dialysis needs have been arranged appropriately. For questions or concerns, please page the Nephrology A [employer]/PA pager, [phone] or you may text page by clicking here. Associated attestation - Yamileth Kennedy M.D., Ph.D. - 12/05/2021 2:24 PM CDT I was the supervising physician in the delivery of the service. Tina Lobato Pharm.D., R.Ph. - 12/05/2021 10:31 AM CDT Pharmacist Progress Note Reason for admission: increased weakness, recent fall PMH: P-A-fib on Warfarin, HTN, ELENI, known Achalasia and significant esophageal motility disorder/dysphagia and frequent aspiration pneumonia events in the past OBJECTIVE Home medications: medication list completed by Provider ??? New: abx Prophylaxis: warfarin - INR supratherapeutic LBM: 12/03/21 Warfarin Warfarin Indication: Atrial fibrillation (AF) Type of therapy: Continuation Prior average daily dose: 1.5 Comorbidities: Poor nutrition state (e.g. several days or more of significantly reduced dietary intake) Are any of these comorbidities new with admission? No Are there any new medication interactions with admission? Yes Target INR: 2 - 3 Day of therapy: 4 Notable drug interactions include the following: Zosyn Warfarin Administrations (last 168 hours) Date/Time Action Medication Dose 12/04/21 1657 Given warfarin tablet 0.5 mg (COUMADIN) 0.5 mg 12/02/21 1702 Given warfarin tablet 0.5 mg (COUMADIN) 0.5 mg INR (no units) Date Value Status 12/05/2021 2.6 Final 12/04/2021 3.1 Final 12/03/2021 3.6 Final 2021 3.0 Final ASSESSMENT / PLAN 1.) Empyema w/ R Hydropneumothorax: on CT - Zosyn 2.25g Q8H (D4). S/p thoracentesis 12/02 w/ 250 mL removed and (-) organisms on gram stain - cytology/LD/protein pending. R pigtail drain placed 12/02 2.) ESRD: PD per nephrology. Continues home calcitriol 0.25 mcg MWF, torsemide 40 mg/d. Phos 4. 3.) Paroxysmal AFIB: metoprolol 25 mg BID. Warfarin per pharmacy protocol - admit INR 3 (goal 2-3) w/ home dosing 1 mg Tues/Thurs/Sun and 2 mg all other days. INR this AM is down to 2.6 - will repeat warfarin 0.5mg this evening. Oral intake is reduced. 4.) HTN, CV: continues home: metoprolol BID, isordil TID, torsemide 40mg/day. Holding hydralazine. 5.) Constipation: Last bowel movement 12/04/21 per RN charting - miralax daily on board. Joyce Torres M.B.B.S. - 12/05/2021 9:28 AM CDT Images from the original note were not included. Pleural Service/Interventional Pulmonology Service Consult Note SUBJECTIVE Referral Source: Jamal Andujar, DWIGHT, C.N.P. Reason for Consult: Suspected empyema Interval History Mr Castro is an 81 y/o male with a pmhx of ESRD on peritoneal dialysis, HFrEF, atrial fibrillation on warfarin, achalasia and esophageal motility who was admitted for evaluation of weakness. Interventional pulmonology was consulted for evaluation of potential empyema. Patient has done well. Chest tube output has been 60cc/24hr with no air leak. OBJECTIVE PHYSICAL EXAMINATION Vital Signs: BP (!) 93/53 (BP Location: Left arm;Upper, Patient Position: Sitting) Pulse 60 Temp36.2 ??C (Oral) Resp 18 Ht 167.6 cm Wt 78.6 kg SpO2 94% BMI 27.98 kg/m?? General: pleasant, sitting in bed Pulmonary: no audible breathing, no increased work of breathing Bedside ultrasound demonstrated a tiny to minimal pleural effusion. Images were saved and uploaded to [employer]. DIAGNOSTICS I have reviewed relevant laboratory, imaging, and other diagnostics as applicable to this consultation. CT 12/03/21 shows improvement in the pneumothorax component. CXR 12/05/21 AM: small persistent basilar right hydropneumothorax. Trace left effusion/pleural thickening. ASSESSMENT / PLAN Hydropneumothorax Exudative right pleural effusion Weakness Esophageal motility disorder Dysphagia ESRD on peritoneal dialysis Paroxysmal atrial fibrillation on anticoagulation Essential hypertension Anemia of chronic disease HFrEF Patient did have a CT chest on for which we do not have images for. This CT was performedfor evaluation of a potential right lower lobe mass. However, as per reading, there was no mass and there was chronic volume loss within the right lower lobe and a decreased size in a right sided pleural effusion when compared to CT 04/15/2019 and CXR 05/17/2021. As per outside notes, patient's pleural effusion that was too small to be evacuated via thoracentesis in 04/2021 was deemed to be 2/2 heart failure given concomitant pericardial effusion. Patient did, however, undergo a thoracentesis in 03/2019with removal of 900cc of clear serous pleural fluid when he was admitted to [facility] for heart failure (EF 25-30%). This pleural fluid was exudative in nature and lymphocytic predominant with negative cultures and cytology. Initially we performed a posterior right sided thoracentesis with evacuation of 300cc of serosanguinous exudative cloudy pleural fluid. Preliminary labs were pertinent for a pH of 7.27 with lymphocyticpredominant cell count. Labs and imaging (without being able to compare to prior images) in the setting of new sudden weakness are concerning for a potential underlying infection. Current CT shows thickening of the pleural lining which identifies this an an underlying inflammatory of chronic problem. However, if the patient previously had a hydropneumothorax, we would assume that the space would havefilled up with pleural fluid, especially in the setting of his ESRD and heart failure. Hence, it is unclear why he has this air component which was not present on CT on 04/2021. Differential includes: gas forming infection, ex vacuo, component broncho-pleuric fistula, esophageal-pleural fistula. Patient is undergoing barium swallow evaluation to rule out esophageal pleural fistula, a broncho- pleuric fistula is unlikely and there seems to be no infectious etiology. Given the potential for an underlying infectious process based on the low pleural pH, the patient underwent placement of a posterior right sided 12F pigtail on 12/03/21. Cytology has been negative, SPEPunremarkable and normal pleural glucose. Recommendations: - Pleuroperitoneal fluid leak less likely given pleural fluid sugar not significantly elevated to reflect PD dialysate fluid. Await esophagogram and video swallow eval. - Agree with connective tissue disease cascade in view of presence of pericardial effusion - We will check broad-range bacterial PCR from the pleural fluid - He has passed a clamping trial so does not need the chest tube from a Ptx standpoint. We could potentially remove chest tube but will hold off for now until further work up. - 12F pigtail placed to -20 cm of H20 suction on the posterior right chest a. Please flush with 10cc of sterile saline tid b. Pigtail will remain in place until esophageal fistula is rule out. c. An extended pcr has been added on to pleural fluid The patient was seen and discussed with the supervising financial analysis consultant, Dr. Means. We will continue tofollow. Please contact [phone] with questions or concerns. Trisha DobsonS. [facility] Fellow Associated attestation - Will Means M.D. - 12/05/2021 5:39 PM CDT I physically saw and evaluated the patient, participating in the coughlin portions of the service. Pocus (QREADS) shows a stable small pocket of right pleural fluid and debris. On exam, the catheter is patent and there was no air leak. I reviewed the resident/fellow???s note. I agree with the resident/fellow???s findings and plan. My impressions and recommendations are basically identical to yesterday. Simran Helm P.A.-C., M.S. - 12/05/2021 6:58 AM CDT [facility] 8 ([facility]) Progress Notes SUBJECTIVE The [facility] Medicine 8 ([facility]) service evaluated Mr. Castro this morning on rounds. He is sitting in the bedside recliner. He feels well, denies any recurrence of the lower extremity weakness he felt yesterday. I reviewed the current medication list. 12 point review of systems is negative except for pertinent positives listed above. OBJECTIVE VITAL SIGNS Temperature: [36.2 ??C-36.3 ??C] 36.3 ??C Resp Rate: [16-18] 16 Blood Pressure: (103-141)/(54-62) 111/54 SpO2: [94 %-97 %] 96 % Flow Rate (L/min): [0 L/min] 0 L/min Pulse Rate: [59-66] 59 Intake/Output Last 24 Hours: Date 12/04/21699 - 12/05/2165812/05/21699 - 12/06/21 0659 Shift 6624-0425 9710-6019 7570-3138 24 Hour Total 1730-5031 0716-8047 7781-7707 24 Hour Total INTAKE P.O. 210 210 Other 10 0 10 Intermittent Medications 50 50 50 150 Shift Total(mL/kg) 270(3.4) 50(0.6) 50(0.6) 370(4.7) OUTPUT Urine(mL/kg/hr) 350(0.6) 275 625 Urine 350 275 625 Chest Tube 160 60 220 Dialysis 4 80 84 Shift Total(mL/kg) 514(6.5) 415(5.3) 929(11.8) NET 193 -414 -821 -926 Weight (kg) 78.6 78.6 78.6 78.6 78.6 78.6 78.6 78.6 Net IO Since Admission: -448 mL [12/05/21 0658] PHYSICAL EXAM General: Alert, interactive, no apparent distress. Skin: No rashes or lesions. HEENT: Sclera anicteric. Hearing grossly intact. Moist mucous membranes. Lungs: No respiratory distress. Faint crackles heard on the right, otherwise clear. Chest tube draining serosanguineous fluid. Heart: Regular rate and rhythm. No murmurs appreciated. No extremity edema. Abdomen: Bowel sounds present in all four quadrants. Abdomen is soft, nondistended, nontender. No organomegaly. Neuro: Sensation intact to light touch. 5/5 strength against resistance. Mental: Mood and affect congruent. Alert and oriented. Attention intact. No evidence of disorganizedthinking. RASS 0. 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 ASSESSMENT / PLAN Mr. Castro is hospitalized on [place] [address] ([facility]) for evaluation and management of Empyema Pleural(HCC). He was brought to the ED after he was unable to stand to get out of his car due to acute onset of lower extremity weakness. Additional workup in the ED concerning for recurrent pleural effusions/empyema as below. He is admitted to [place] [address] for further evaluation. #1 Weakness, generalized Improved with p.o. and fluid intake. He notes these episodes occurred each time after dialysis. Willcontinue to monitor. #2 Recurrent right pleural effusion #3 Hydropneumothorax #3 Achalasia #4 Esophageal Motility Disorder #5 Dysphagia #6 History of prior systolic HF, now with improved EF Pleural fluid studies with low pH and elevated TNC, no robert pus noted. No growth on fluid cultures thus far, and no other clinical signs for infection. Chest CT from yesterday did not demonstrate presence of fistula. Pneumothorax is resolving. Still unclear as to the etiology presence of air trapping, but infection is less likely. Suspicion for esophageal leak remains high. -appreciate IP evaluation. We will leave chest tube in place until esophagram study complete (tomorrow) -serum protein electrophoresis unremarkable -remains on Zosyn, renally adjusted (day 4) #7 Elevated Alkaline Phosphatase Has been elevated as high as 300's in the past, with subsequent downtrend. This admission alk phos is 406, GGT 169. The remainder of his hepatic function is stable. -RUQ ultrasound unremarkable #8 Chronic Failure Renal End Stage Renal Disease Dialysis Dependent (HCC) #9 Dialysis Peritoneal Status (HCC) #10 Anemia of chronic disease #11 Atrial Fibrillation Paroxysmal (HCC) #12 Hypertension Essential Primary Recently started on peritoneal dialysis in August 2021 due to CKD stage 5 with mild uremia and hypervolemia. Has been stable since. Blood pressures dipped lower yesterday. We will monitor his fluid status. -consult to nephrology for comanagement of dialysis needs -continue torsemide, lopressor, Warfarin per pharmacy protocol -Home hydralazine on hold -Renal dialysis diet,1.5 L fluid restriction--will clarify with nephrology whether this can be lifted #13 Apnea Sleep Obstructive -compliant with home CPAP, held here given acute pulmonary issues above Diet: Regular Tubes/lines: PIV VTE prophylaxis: Warfarin PPI prophylaxis: Protonix Current Activity/Mobility: BMAT Level 4 (Able to stand and walk; needs staff assist if fall risk factors identified) Fall Injury Prevention: N/A - patient is not determined to be at risk of falling Disposition: Home Code status: Full Code Stable to discharge criteria (not yet met): Labs and Tests/procedures/consults Patient discussed with John Paul Dockery M.D., M.P.H. who is in agreement with plan of care detailed above. I provided [id number] counseling at bedside regarding the plan of care. The patient acknowledged an understanding and agreed with the plan of care listed above. I personally spent over half of a total 40 minutes in counseling and coordination of care as documented above. Simran Helm M.S., PA-C Pager: [phone] Jaqueline Fontanez M.D. - 12/04/2021 3:19 PM CDT Images from the original note were not included. Pleural Service/Interventional Pulmonology Service Consult Note SUBJECTIVE Referral Source: Jamal Andujar, DWIGHT, C.N.P. Reason for Consult: Suspected empyema Interval History Mr Castro is an 81 y/o male with a pmhx of ESRD on peritoneal dialysis, HFrEF, atrial fibrillation on warfarin, achalasia and esophageal motility who was admitted for evaluation of weakness. Interventional pulmonology was consulted for evaluation of potential empyema. Patient has done well. Chest tube output has been 0 cc/24hr with no air leak. OBJECTIVE PHYSICAL EXAMINATION Vital Signs: BP 104/62 Pulse 62 Temp 36.2 ??C Resp 18 Ht 167.6 cm Wt 78.6 kg SpO2 97% BMI 27.98 kg/m?? General: pleasant, sitting in bed Pulmonary: no audible breathing, no increased work of breathing Bedside ultrasound demonstrated a tiny to minimal pleural effusion. Images were saved and uploaded to [employer]. DIAGNOSTICS I have reviewed relevant laboratory, imaging, and other diagnostics as applicable to this consultation. CT 12/03/21 shows improvement in the pneumothorax component. CXR 12/03/21 AM: small persistent basilar right hydropneumothorax. Trace left effusion/pleural thickening. ASSESSMENT / PLAN Hydropneumothorax Exudative right pleural effusion Weakness Esophageal motility disorder Dysphagia ESRD on peritoneal dialysis Paroxysmal atrial fibrillation on anticoagulation Essential hypertension Anemia of chronic disease HFrEF Patient did have a CT chest on for which we do not have images for. This CT was performedfor evaluation of a potential right lower lobe mass. However, as per reading, there was no mass and there was chronic volume loss within the right lower lobe and a decreased size in a right sided pleural effusion when compared to CT 04/15/2019 and CXR 05/17/2021. As per outside notes, patient's pleural effusion that was too small to be evacuated via thoracentesis in 04/2021 was deemed to be 2/2 heart failure given concomitant pericardial effusion. Patient did, however, undergo a thoracentesis in 03/2019with removal of 900cc of clear serous pleural fluid when he was admitted to [facility] for heart failure (EF 25-30%). This pleural fluid was exudative in nature and lymphocytic predominant with negative cultures and cytology. Initially we performed a posterior right sided thoracentesis with evacuation of 300cc of serosanguinous exudative cloudy pleural fluid. Preliminary labs were pertinent for a pH of 7.27 with lymphocyticpredominant cell count. Labs and imaging (without being able to compare to prior images) in the setting of new sudden weakness are concerning for a potential underlying infection. Current CT shows thickening of the pleural lining which identifies this an an underlying inflammatory of chronic problem. However, if the patient previously had a hydropneumothorax, we would assume that the space would havefilled up with pleural fluid, especially in the setting of his ESRD and heart failure. Hence, it is unclear why he has this air component which was not present on CT on 04/2021. Differential includes: gas forming infection, ex vacuo, component broncho-pleuric fistula, esophageal-pleural fistula. Patient is undergoing barium swallow evaluation to rule out esophageal pleural fistula, a broncho- pleuric fistula is unlikely and there seems to be no infectious etiology. Given the potential for an underlying infectious process based on the low pleural pH, the patient underwent placement of a posterior right sided 12F pigtail on 12/03/21. Cytology has been negative, SPEPunremarkable and normal pleural glucose. After further questioning, patient may be having difficultywith his peritoneal dialysis and has been injecting air accidentally into the circuit. It is possible that the pneumothorax component is due to his PD. Recommendations: 1. To rule out pleuroperitoneal fluid leak, would consider CT scan with iodinated contrast vs nuclear Te isotope scan my be considered a. Would appreciate radiology input 2. 12F pigtail placed to -20 cm of H20 suction on the posterior right chest a. Please flush with 10cc of sterile saline tid b. Pigtail will remain in place until esophageal fistula is rule out. c. An extended pcr has been added on to pleural fluid The patient was seen and discussed with the supervising financial analysis consultant, Dr. Means. We will continue tofollow. Please contact [phone] with questions or concerns. Jaqueline Moseley M.D. [facility] Fellow Yamileth Kennedy M.D., Ph.D. - 12/04/2021 2:56 PM CDT This is a supervisory note to Bailey Vero nurse practitioner. I met with the patient interviewed examined him he is receiving CCPD in the hospital overnight with 1.5% Dianeal. He was happy with the connect disconnect procedures overnight. Has no pain on instillation. I/O 12/03 0000 12/039 04/16 0000 04/16 2359 P.O. 640 210 Other 10 Crystalloid Bolus 20 Intermittent Medications 150 50 Total Intake(mL/kg) 810 (10.2) 270 (3.4) Urine (mL/kg/hr) 475 (0.2) 350 (0.3) Emesis or Enteric Tube 0 Chest Tube 70 Dialysis 66 -204 Total Output 611 146 Net +199 +124 Unmeasured Emesis Occurrence 1 x BP 141/60 (BP Location: Left arm;Upper, Patient Position: Lying) Pulse 66 Temp 36.3 ??C (Oral) Resp 18 Ht 167.6 cm Wt 78.6 kg SpO2 97% BMI 27.98 kg/m?? Right pleural chest drain. Reduced air entry right base Abdomen soft with peritoneal dialysis catheter with no exit site tenderness. 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 Methylene blue is not reccomended for intraperitoneal administration as there was concern it may be a peritoneal irritant. Options for further evaluation for a pleuroperitoneal fluid leak would be CT scan with administration of iodinated contrast or nuclear Te isotope scan. The relatively normal pleural tap glucose level argues against a pleural peritoneal leak. In the past Interventional Radiology has done peritoneogram. Please confer with interventional radiology and nuclear medicine for diagnostic options. Evette Pham APRN, C.N.P., D.N.P. - 12/04/2021 2:20 PM CDT SUBJECTIVE Mr. Castro was seen and examined in his room with Dr. Yamileth Kennedy. He underwent dialysis last nightwith no fluid removal and a post dialysis weight of 78.6 kg, which he tolerated well. Patient was pleased with his peritoneal dialysis last evening. He feels good technique was used, andeverything explained to him, which he appreciated. Dr. Kennedy and I explained that we are continuing testing for his hydropneumothorax. He understands we may request a daytime dwell of fluid, and in occluded dye or isotope to assist with further diagnosis. This will be discussed further with Interventional pulmonology, radiology, and Nephrology. Today he is feeling well with no concerns of shortness of breath or chest discomfort. No swelling ofextremities nor abdominal discomfort. He feels his appetite is good, but he has had limited access to food due to frequent testing. He is drinking water. He continues to have excellent urine output at 1.2 L documented, continuing torsemide 40 mg daily. I have reviewed the current medication list. OBJECTIVE Admission Weight: 79.3 kg Current Weight: 78.6 kg VITAL SIGNS Temperature: [36.2 ??C-36.9 ??C] 36.3 ??C Heart Rate: [68-87] 87 Resp Rate: [13-18] 18 Blood Pressure: (99-141)/(43-64) 141/60 SpO2: [96 %-99 %] 97 % Flow Rate (L/min): [0 L/min] 0 L/min Pulse Rate: [56-88] 66 Intake/Output Summary (Last 24 hours) at 12/04/2021 1421 Last data filed at 12/04/2021 1345 Gross per 24 hour Intake 790 ml Output 624 ml Net 166 ml PHYSICAL EXAM General: Alert and oriented, in no acute distress Heart: Regular rate and rhythm Lungs: Clear to auscultation in the anterior lung ramirez bilaterally Extremities: There is no edema of the lower extremities bilaterally Vessels: Peritoneal dialysis catheter-dressing in place, dry and intact. Unable to visualize exit site. DIAGNOSTICS I have reviewed labs. Sodium 139, potassium 4.1, improved, bicarb 27, calcium 8.4, phosphorus 3.9, albumin 3.1. ASSESSMENT / PLAN #1 End-stage renal disease secondary to??nephrosclerosis, maintained on??peritoneal dialysis since??08/2021 #2 Admitted on??2021 for acute weakness, found to have complex empyema?? 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 Castro will continue his current peritoneal dialysis prescription of 8 hours, 4 exchanges of 1.5 L each. Will continue to use 1.5% Dianeal solution. I have not ordered a day dwell for tomorrow, however the patient understands this may be requested for further testing in the days to come. For now,dry peritoneum during the day. He did not have any fluid removed with his PD, however his weight is down from admission. Was encouraged to continue drinking water. New recommendations: -- Please have nursing obtain standing weights for accuracy and patient preference. Continued recommendations: -- Peritoneal dialysis x7 nights per week --??Dose medications for patients that have ESRD, on peritoneal dialysis --??Renal dialysis diet to include restrictions of: 90 mEq Na, 100 g protein, 80-100 mg phosphorus. No potassium restriction currently needed. --??1.5 L per day fluid restriction --??Dialyvite one tablet each evening --??Daily weights, standing if possible --??Strict I&O monitoring --??Gentamicin??0.1 %??cream to be applied to PD catheter site daily. Please have??nursing staff clean PD catheter site with soap and water??daily prior to applying??gentamicin cream to site??and coverwith gauze dressing.?? -- Please review potassium supplementation with nephrology in the setting of ESRD. I note that he received 40 mEq of potassium chloride this morning --??Continue calcitriol 0.25 mcg p.o. 3 times per week-- please adjust dosing as it is currently ordered as TID three times weekly -- Continues on??hydralazine 10 mg p.o. t.i.d., isosorbide dinitrate 5 mg p.o. t.i.d., metoprolol tartrate 25 mg p.o. b.i.d. and torsemide 40 mg p.o. daily? Disposition: --??Please keep Nephrology informed regarding??'s disposition as it becomes known so that we can ensure that their outpatient dialysis needs have been arranged appropriately. For questions or concerns, please page the Nephrology A [employer]/PA pager, [phone] or you may text page by clicking here. Will Means M.D. - 12/04/2021 1:46 PM CDT Narrative summary: We visited with this patient for long time at the bedside. We reviewed his CT scan and his prior records including initial consult from Dr. Jimenez. I discussed the case with nephrology [id number]. He is an 81M never smoker who is retired from [employer]. He has the prior history of lymphocytic right pleural exudate present since 2019 with one prior thoracentesis as outlined in Dr. Jimenez's note.On 02/14/19, he had bilateral effusions and a lower left lung opacification. His next chest image wasthe CXR from 12/01/21, which showed the hydropneumothorax on the right side and prompted this admission. Some of the intervening clinical changes that time frame are that he had a robot-assisted Heller myotomy on 12/03/20. 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 There was a small enterotomy that was repaired. There was extensive work in the mediastinum, but they do not report any injury to pleura or entry into the right thorax. On 08/16/21, he had placement of a peritoneal dialysis catheter. The abdomen was insufflated to 15 mmHg. There was no known complication or injury to any diaphragmatic structures. The patient has been doing peritoneal dialysis at home himself. He has limited confidence with his technique, says he is not sure is doing right. He describes that there is often air in the tubing whenhe starts his treatments and that it is pushed into the peritoneal space with his dwells. Objective I/O/exam: Room air. Tube output: The chest tube is patent, no leak. U/S: Limited POCUS showed small pocket of pleural fluid and debris. Images to Q-Reads. Labs/images: Reviewed Assessments #1 Right, acidic, glycopenic hydropneumothorax s/p 12-Fr US pgt 12/02/21 #2 Chronic lymphocytic right pleural exudate #3 ESRD on peritoneal dialysis #4 Achalasia s/p robot assisted Heller myotomy 12/03/20 #5 History of CHF with reduced EF #6 Atrial fibrillation on oral anticoagulation Discussion I see this patient has having two separate pleural problems. The first is the chronic lymphocytic right pleural exudate. It goes back at least three years. Pinning down a diagnosis will be challenging,as he has had very little imaging and pleural fluid analysis. His imaging following tube placement suggests that he has trapped lung, which itself can encourage pleural fluid accumulation regardless ofthe initial cause. Perhaps the initial pleural injury was was related to an episode of heart failure, aspiration pneumonia, mediastinal pleural irritation from his esophageal disease, or benign asbestos disease. My fellow brought up a good point about identification of his pericardial effusion now, soperhaps he has some autoimmune serositis. The second, superimposed pleural injury is the accumulation of gas in that space. The fluid had a pHof 7.27 and a glucose of 46 (serum 101). Our differential for this process right now includes empyema, esophageal injury, or trans-diaphragmatic migration of intraperitoneal air during his PD runs. Themost latter would be extremely uncommon and a diagnosis of exclusion. Recommendations ?? Check a connective tissue disease cascade ?? We will check broad-range bacterial PCR from the pleural fluid ?? Agree with the esophageal investigations rec'd by GI ?? If that is all negative, we discussed with Nephrology potentially doing a study to assess for trans-diaphragmatic egress of peritoneal fluid such as with a radionucleotide or methylene blue study. ?? He has passed a clamping trial so does not need the chest tube from a Ptx standpoint. However, weare planning to leave this in until we have some more diagnostic clarity and reassurance about the possibility of an ongoing esophageal leak. Thanks for the consult. We will follow. ENT Tina Lobato Pharm.Samia., R.Ph. - 12/04/2021 11:29 AM CDT Pharmacist Progress Note Reason for admission: increased weakness, recent fall PMH: P-A-fib on Warfarin, HTN, ELENI, known Achalasia and significant esophageal motility disorder/dysphagia and frequent aspiration pneumonia events in the past OBJECTIVE Home medications: medication list completed by Provider ??? New: abx Prophylaxis: warfarin - INR supratherapeutic LBM: 12/03/21 Warfarin Warfarin Indication: Atrial fibrillation (AF) Type of therapy: Continuation Prior average daily dose: 1.5 Comorbidities: Poor nutrition state (e.g. several days or more of significantly reduced dietary intake) Are any of these comorbidities new with admission? No Are there any new medication interactions with admission? Yes Target INR: 2 - 3 Day of therapy: 3 Notable drug interactions include the following: Zosyn Warfarin Administrations (last 168 hours) Date/Time Action Medication Dose 12/02/21 1702 Given warfarin tablet 0.5 mg (COUMADIN) 0.5 mg INR (no units) Date Value Status 12/04/2021 3.1 Final 12/03/2021 3.6 Final 2021 3.0 Final ASSESSMENT / PLAN 1.) Empyema w/ R Hydropneumothorax: on CT - Zosyn 2.25g Q8H (D3). S/p thoracentesis 12/02 w/ 250 mL removed and (-) organisms on gram stain - cytology/LD/protein pending. R pigtail drain placed 12/02 2.) ESRD: PD per nephrology. Continues home calcitriol 0.25 mcg MWF, torsemide 40 mg/d 3.) Paroxysmal AFIB: metoprolol 25 mg BID. Warfarin per pharmacy protocol - admit INR 3 (goal 2-3) w/ home dosing 1 mg Tues/Thurs/Sun and 2 mg all other days. INR this AM is back down to 3.1 - will give warfarin 0.5mg this evening. 4.) HTN, CV: continues home: hydralazine TID, metoprolol BID, isordil TID 5.) Constipation: Last bowel movement 12/03/21 per RN charting - bowel regimen intensified yesterday. Simran Helm P.A.-C., M.S. - 12/04/2021 7:59 AM CDT [facility] ([facility]) Progress Notes SUBJECTIVE [facility] 8 ([facility]) service evaluated Mr. Castro this morning on rounds. This morning he complains of the same leg symptoms again as before admission. He has been walking around the room this AM,but currently is not sure he could bear weight on the legs. He denies any loss of sensation. No associated chest pain, dizziness, pre-syncope, or symptoms in the upper extremities. I reviewed the current medication list. 12 point review of systems is negative except for pertinent positives listed above. OBJECTIVE VITAL SIGNS Temperature: [34.5 ??C-36.9 ??C] 36.6 ??C Heart Rate: [62-87] 87 Resp Rate: [11-24] 16 Blood Pressure: (99-115)/(43-71) 107/50 SpO2: [96 %-99 %] 97 % Flow Rate (L/min): [0 L/min] 0 L/min Pulse Rate: [56-91] 56 Intake/Output Last 24 Hours: Date 12/03/21699 - 12/04/2165812/04/21699 - 12/05/21 0659 Shift 9281-1896 5390-1011 3153-5379 24 Hour Total 2853-3109 4011-8334 7141-5253 24 Hour Total INTAKE P.O. 240 400 640 Other 0 0 Crystalloid Bolus 20 20 Intermittent Medications 50 50 50 150 Shift Total(mL/kg) 290(3.7) 470(5.9) 50(0.6) 810(10.2) OUTPUT Urine(mL/kg/hr) 475(0.7) 350(0.6) 825(0.4) Urine 475 350 825 Dialysis 63 3 -204 -138 Shift Total(mL/kg) 63(0.8) 478(6) 146(1.8) 687(8.7) NET 227 -8 -96 123 Weight (kg) 79.3 79.3 79.3 79.3 79.3 79.3 79.3 79.3 Net IO Since Admission: 111 mL [12/04/21 0759] PHYSICAL EXAM General: Alert, interactive, no apparent distress. Skin: No rashes or lesions. HEENT: Sclera anicteric. Hearing grossly intact. Moist mucous membranes. Lungs: No respiratory distress. Clear to auscultation bilaterally. Chest tube clamped. Heart: Regular rate and rhythm. No murmurs appreciated. No extremity edema. Abdomen: Bowel sounds present in all four quadrants. Abdomen is soft, nondistended, nontender. No organomegaly. Neuro: Able to distinguish between dull in light sensation in bilateral lower extremities. Patellar reflexes intact. Unable to elicit Achilles reflex. Negative Babinski. Patient has full passive range of motion. 5/5 strength against resistance in the lower extremities bilaterally. Coordination intact w ith [id number] testing, rapid alternating hand movements. Negative pronator drift. Mental: Mood and affect congruent. Alert and oriented. Attention intact. No evidence of disorganizedthinking. RASS 0. 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 DIAGNOSTICS I personally reviewed labs, imaging, EMR. ASSESSMENT / PLAN Mr. Castro is hospitalized on [place] [id number] ([facility]) for evaluation and management of Empyema Pleural(HCC). He was brought to the ED after he was unable to stand to get out of his car due to acute onset of lower extremity weakness. Additional workup in the ED concerning for recurrent pleural effusions/empyema as below. He is admitted to [place] [address] for further evaluation. #1 Weakness, generalized He again noted some generalized weakness in the lower extremities. I do not find any focal abnormalities on his neuro exam that require imaging at this time. He states in the past he has developed weakness after dialysis sessions. We will await morning labs to look for any electrolyte abnormalities. Iadvised the patient of red flag symptoms to look out for, at which time we would order stat MRI. #2 Recurrent right pleural effusion #3 Hydropneumothorax #3 Achalasia #4 Esophageal Motility Disorder #5 Dysphagia #6 History of prior systolic HF, now with improved EF The pleural fluid studies resulting from yesterday were concerning for possible infection given low pH and elevated T and see. No growth on fluid cultures thus far, and no other clinical signs for infection. Chest CT from yesterday did not demonstrate presence of fistula. -appreciate IP evaluation. Chest tube clamp trial, follow-up x-ray this a.m. -serum protein electrophoresis pending -Given mildly increased amylase present in pleural fluid, consult placed to GI. Proceed with esophagram to evaluate for potential esophageal perforation. Further recommendations pending this study. -remains on Zosyn, renally adjusted (day 3) #7 Elevated Alkaline Phosphatase Has been elevated as high as 300's in the past, with subsequent downtrend. This admission alk phos is 406, GGT 169. The remainder of his hepatic function is stable. -RUQ ultrasound #8 Chronic Failure Renal End Stage Renal Disease Dialysis Dependent (HCC) #9 Dialysis Peritoneal Status (HCC) #10 Anemia of chronic disease #11 Atrial Fibrillation Paroxysmal (HCC) #12 Hypertension Essential Primary Recently started on peritoneal dialysis in August 2021 due to CKD stage 5 with mild uremia and hypervolemia. Has been stable since. -consult to nephrology for comanagement of dialysis needs -continue torsemide, lopressor, Warfarin per pharmacy protocol -Renal dialysis diet,1.5 L fluid restriction #13 Apnea Sleep Obstructive -compliant with home CPAP, held here given acute pulmonary issue above Diet: Regular Tubes/lines: PIV VTE prophylaxis: Warfarin PPI prophylaxis: Protonix Current Activity/Mobility: BMAT Level 4 (Able to stand and walk; needs staff assist if fall risk factors identified) Fall Injury Prevention: N/A - patient is not determined to be at risk of falling Disposition: Home Code status: Full Code Stable to discharge criteria (not yet met): Labs and Tests/procedures/consults Patient discussed with John Paul Dockery M.D., M.P.H. who is in agreement with plan of care detailed above. I provided [id number] counseling at bedside regarding the plan of care. The patient acknowledged an understanding and agreed with the plan of care listed above. I personally spent over half of a total 40 minutes in counseling and coordination of care as documented above. Simran Helm M.S., PA-C Pager: [phone] Jaqueline Fontanez M.D. - 12/03/2021 1:21 PM CDT Images from the original note were not included. Pleural Service/Interventional Pulmonology Service Consult Note SUBJECTIVE Referral Source: Jamal Andujar, DWIGHT, C.N.P. Reason for Consult: Suspected empyema Interval History Mr Castro is an 81 y/o male with a pmhx of ESRD on peritoneal dialysis, HFrEF, atrial fibrillation on warfarin, achalasia and esophageal motility who was admitted for evaluation of weakness. Interventional pulmonology was consulted for evaluation of potential empyema. Patient has done well. Chest tube output has been 160 cc/24hr with no air leak. I have reviewed the patient's past medical/surgical/social/family history along with medications andallergies in the EMR. OBJECTIVE PHYSICAL EXAMINATION Vital Signs: BP 114/71 (Patient Position: Lying) Pulse 63 Temp 36.6 ??C (Oral) Resp 19 Ht 167.6 cm Wt 79.3 kg SpO2 98% BMI 28.23 kg/m?? General: pleasant, lying in bed Pulmonary: no audible breathing, no increased work of breathing Bedside ultrasound demonstrated a tiny pleural effusion. Images were saved and uploaded to [employer]. DIAGNOSTICS I have reviewed relevant laboratory, imaging, and other diagnostics as applicable to this consultation. CXR 12/03/21 AM: small persistent basilar right hydropneumothorax. Trace left effusion/pleural thickening. ASSESSMENT / PLAN Hydropneumothorax Exudative right pleural effusion Weakness Esophageal motility disorder Dysphagia ESRD on peritoneal dialysis Paroxysmal atrial fibrillation on anticoagulation Essential hypertension Anemia of chronic disease HFrEF Patient did have a CT chest on for which we do not have images for. This CT was performedfor evaluation of a potential right lower lobe mass. However, as per reading, there was no mass and there was chronic volume loss within the right lower lobe and a decreased size in a right sided pleural effusion when compared to CT 04/15/2019 and CXR 05/17/2021. As per outside notes, patient's pleural effusion that was too small to be evacuated via thoracentesis in 04/2021 was deemed to be 2/2 heart failure given concomitant pericardial effusion. Patient did, however, undergo a thoracentesis in 03/2019with removal of 900cc of clear serous pleural fluid when he was admitted to [facility] for heart failure (EF 25-30%). This pleural fluid was exudative in nature and lymphocytic predominant with negative cultures and cytology. Initially we performed a posterior right sided thoracentesis with evacuation of 300cc of serosanguinous cloudy pleural fluid. Preliminary labs were pertinent for a pH of 7.27 with lymphocytic predominant cell count. Labs and imaging (without being able to compare to prior images) in the setting of newsudden weakness are concerning for a potential underlying infection. It is unclear why the patient has a pneumothorax component. Current CT shows thickening of the pleural lining which identifies this an an underlying inflammatory of chronic problem. However, if the patient previously had a hydropneumothorax, we would assume that the space would have filled up with pleural fluid, especially in the setting of his ESRD and heart failure. Hence, it is unclear why he has this air component which was notpresent on CT on 04/2021. Differential includes: gas forming infection, ex vacuo, component broncho-pleuric fistula, esophageal- pleural fistula Given the potential for an underlying infectious process based on the low pleural pH, the patient underwent placement of a posterior right sided 12F pigtail on 12/03/21. Recommendations: 1. F/U pleural studies 2. Recommend High resolution CT chest with contrast to evaluate for potential bronchopleural fistula 3. 12F pigtail placed to -20 cm of H20 suction on the posterior right chest a. Please flush with 10cc of sterile saline tid b. Please clamp this evening with a repeat CXR in the morning The patient was seen and discussed with the supervising financial analysis consultant, Dr. Jimenez. We will continue to follow. Please contact [phone] with questions or concerns. Jaqueline Moseley M.D. [facility] Fellow Associated attestation - Will Means M.D. - 12/04/2021 1:46 PM CDT I saw and evaluated the patient, participating in the coughlin portions of the service. I reviewed the resident/fellow???s note. I agree with the resident/fellow???s findings and plan. We recommend getting a new chest CT and reviewed it. There is right pleural thickening, opacification much of the peripheral mid and lower right, good drain positioning, moderate pericardial effusion. I do not see any clear visceral pleural defect. We recommend clamping his chest tube overnight to seeif there is any expansion of the Ptx, which would suggest ongoing source of air entry. Yue Perez O.T., MOT - 12/03/2021 12:51 PM CDT 12/03/21 1251 OT Specialty Assessment/Plan/Goals Select OT Specialty Dysphagia Dysphagia OT Assessment Recommended Compensation Techniques/Adaptive Equipment Alternate solid food with small amounts of liquids Recommended Aspiration Precautions Watch closely for signs of aspiration;Sit upright with all oral intake and when completing oral cares;Avoid lying down for 30 minutes after meals;Good oral care 3-5 times a day;Eat smaller meals frequently throughout the day;Eat small bites, take small sips, eat slowly Dysphagia OT Plan Plan Discontinue OT dysphagia therapy Dysphagia OT Goals Goal #1 Patient will verbalize 3 aspiration precautions with no cues by hospital discharge. Goal #1 Status Met OT Dysphagia Monitor Note: Spoke with primary service regarding plan for GI involvement due to history of achalasia. Primary service indicated plan for consult this hospitalization. Patient has been self-selecting food options on regular menu that are easier to eat however still having episodes of regurgitation/emesis followingmeals. Safest diet at this time would be NPO given esophageal signs, aspiration risk, and multiple aspiration pneumonias in the past. At this time we will sign off as oral and pharyngeal mechanism and stages of swallow appear within functional limits. Please re-consult if change in status. Simran Helm P.A.-C., M.S. - 12/03/2021 12:25 PM CDT [facility] ([facility]) Progress Notes SUBJECTIVE The [facility] ([facility]) service evaluated Mr. Castro this morning on rounds. He continues to feel well without any new symptoms overnight. Per IP, patient had chest tube placed yesterday evening. I reviewed the current medication list. 12 point review of systems is negative except for pertinent positives listed above. OBJECTIVE VITAL SIGNS Temperature: [36.5 ??C-36.7 ??C] 36.6 ??C Heart Rate: [62-86] 64 Resp Rate: [13-30] 15 Blood Pressure: (111-114)/(69-71) 114/71 SpO2: [97 %-99 %] 98 % Flow Rate (L/min): [0 L/min] 0 L/min Pulse Rate: [62-91] 64 Intake/Output Last 24 Hours: Date 12/02/21 07 - 12/03/21 0659 12/03/21 07 - 12/04/21 0659 Shift 1641-7631 6595-4926 4146-1954 24 Hour Total 5825-8399 3241-7852 1670-5802 24 Hour Total INTAKE P.O. 236 360 596 240 240 Intermittent Medications 50 50 Shift Total(mL/kg) 236(3) 360(4.5) 596(7.5) 290(3.7) 290(3.7) OUTPUT Urine(mL/kg/hr) 100(0.2) 100(0.1) Urine 100 100 Unmeasured Urine Occurrence 1 x 1 x Chest Tube 90 70 160 Dialysis 48 48 63 63 Shift Total(mL/kg) 238(3) 70(0.9) 308(3.9) 63(0.8) 63(0.8) NET 236 122 -70 288 227 227 Weight (kg) 79.3 79.3 79.3 79.3 79.3 79.3 79.3 79.3 Net IO Since Admission: 215 mL [12/03/21 1225] PHYSICAL EXAM General: Alert, interactive, no apparent distress. Skin: No rashes or lesions. HEENT: Sclera anicteric. Hearing grossly intact. Moist mucous membranes. Lungs: No respiratory distress. Improved air movement through the lungs. Faint rales heard throughout the right. Chest tube draining serosanguinous fluid. Heart: Regular rate and rhythm. No murmurs appreciated. No extremity edema. Abdomen: Bowel sounds present in all four quadrants. Abdomen is soft, nondistended, nontender. No organomegaly. Neuro: Grossly non-focal. 5/5 KAYDEN in lower extremities bilaterally. No cogwheeling rigidity. Gait isnormal. Mental: Mood and affect congruent. Alert and oriented. Attention intact. No evidence of disorganizedthinking. RASS 0. 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 DIAGNOSTICS I personally reviewed labs, imaging, EMR. ASSESSMENT / PLAN Mr. Castro is hospitalized on [place] [id number] ([facility]) for evaluation and management of Empyema Pleural(HCC). He was brought to the ED after he was unable to stand to get out of his car due to acute onset of lower extremity weakness. This is since resolved. Additional workup in the ED concerning for recurrent pleural effusions/empyema as below. He is admitted to [facility] 8 for further evaluation. #1 Weakness, generalized--improving In the absence of any neuro deficits, concern for acute weakness is in the setting of infection. We continue to monitor closely. Thus far, he has not had any difficulties ambulating ad allie around his room or hallway. #2 Recurrent right pleural effusion #3 Hydropneumothorax #3 Achalasia #4 Esophageal Motility Disorder #5 Dysphagia #6 History of prior systolic HF, now with improved EF He has a history of recurrent right-sided pleural effusions requiring thoracentesis and chest tube. The pleural fluid studies resulting from yesterday were concerning for possible infection given low pH and elevated T and see. However, clinically the patient continues to appear and feel well. No growth on fluid cultures thus far. He remains afebrile, on room air, without leukocytosis. -appreciate IP evaluation. Chest tube placed for drainage out of concern for possible infection. -Plan for chest CT with contrast for evaluation of fistula (permissible to use contrast per nephrology). -Clamp trial tonight. Repeat x-ray in the a.m. 12/04 -serum protein electrophoresis ordered -Given mildly increased amylase present in pleural fluid, consult placed to GI. Proceed with esophagram to evaluate for potential esophageal perforation. Further recommendations pending this study. -remains on Zosyn, renally adjusted #7 Elevated Alkaline Phosphatase Has been elevated as high as 300's in the past, with subsequent downtrend. This admission alk phos is 406, GGT 169. The remainder of his hepatic function is stable. -Plan for RUQ ultrasound #8 Chronic Failure Renal End Stage Renal Disease Dialysis Dependent (HCC) #9 Dialysis Peritoneal Status (HCC) #10 Anemia of chronic disease #11 Atrial Fibrillation Paroxysmal (HCC) #12 Hypertension Essential Primary Recently started on peritoneal dialysis in August 2021 due to CKD stage 5 with mild uremia and hypervolemia. Has been stable since. -consult to nephrology for comanagement of dialysis needs -continue torsemide, lopressor, Warfarin per pharmacy protocol -Renal dialysis diet, protein, fluid restriction #13 Apnea Sleep Obstructive -compliant with home CPAP, held here given acute pulmonary issue above Diet: Regular Tubes/lines: PIV VTE prophylaxis: Warfarin PPI prophylaxis: Protonix Current Activity/Mobility: BMAT Level 4 (Able to stand and walk; needs staff assist if fall risk factors identified) Fall Injury Prevention: N/A - patient is not determined to be at risk of falling Disposition: Home Code status: Full Code Stable to discharge criteria (not yet met): Labs and Tests/procedures/consults Patient discussed with John Paul Dockery M.D., M.P.H. who is in agreement with plan of care detailed above. I provided [id number] counseling at bedside regarding the plan of care. The patient acknowledged an understanding and agreed with the plan of care listed above. I personally spent over half of a total 40 minutes in counseling and coordination of care as documented above. Simran Helm M.S., PA-C Pager: [phone] Diana Reed RDN, LD - 12/03/2021 11:18 AM CDT Clinical Nutrition: Initial Assessment Clinical Nutrition was requested to evaluate patient for positive nursing baseline nutrition screen with a MST score of 2 or greater SUBJECTIVE Mr. Castro is a 81 y.o. male transferred from [facility] for evaluation of acute weakness. CT chest shows a complex right sided hydropneumothorax, concern for a potential bronchopleural fistula and atelectasis of the right lower lobe along with pleural thickening. Nutrition related medical/surgical history: ESRD on peritoneal dialysis since 09/11, HFrEF, atrial fibrillation on warfarin, achalasia with recurrent episodes of aspiration. Completed visit with patient today as part of face to face care. Current Nutrition (since admission): Patient reported he ate 100% his breakfast this morning which included scrambled eggs with cheese and mushrooms, applesauce and apple juice. Currently no issues with tolerance per patient. Nutrition history: Patient reported his intake is variable everyday due this his achalasia which patient reported has been a senior living issue. He stated he usually eats throughout the day eating foods that he tolerates best but some days he has difficulty tolerating any oral intake including bottled water. These foods include homemade cream soups which he sometimes will blenderized for better tolerance, bananas, sandwiches with toasted bread, eggs, peanuts, popsicles/Dreamsicles. He stated he always sits upright after meals/fluids and stops eating after 3 pm. He does include daily liquid protein supplement of LiquaCel x 2 per day. Food intolerances include, but not limited to, city water, mashed potatoes, rice, bread, salads, popcorn, fruits with skins- grapes, cherries.include city water, mashed potatoes, rice, bread, salads, popcorn, fruits with skins- grapes, cherries. Patient stated he limits red fluids due to his history of bleeding. Patient stated he has no problems with taking pills. He does exercise 6 days per week which includes daily walks and working out at the gym. OT completed swallow evaluation on 12/02 with recommendations for regular diet with thin liquids, frequent meals and GI consult. OBJECTIVE Current nutrition orders: Current Diet Adult Diet Regular starting at 12/02 1125 Medications: Calcitriol, Protonix, MiraLAX Pertinent Labs: reviewed Anthropometrics: Height: 167.6 cm Admission Weight: 79.3 kg (2021) Usual Body Weight: 78 kg (per patient at daily weigh in first thing in the morning.) BMI (Calculated): 28.2 kg/m?? Weight history: Patient denied recent weight change. Estimated Needs: Total Calorie Needs: 1750 - 1900 calories/day Method to Estimate Energy Needs: [place] (Basal + 20%) Weight Used for Equation Calculations: 79.3 kg Total Protein Needs: 79 - 95 grams/day (Method to Estimate Protein Needs (g/kg): 1 - 1.2 gm/kg) Weight Used to Calculate Protein Needs (Kg): 79 kg Nutrition Diagnosis: Swallowing difficulty related to achalasia as evidenced by patient's report. Malnutrition Criteria: Average estimated Intake: (NPO x 3 days with diet resumed last night. Patient reported his oral intake is variable due to his achalasia) Weight Loss: No Change Body Fat: Normal Muscle Mass: Mild Loss Nutritional Status: (Patient does not meet ASPEN/AND critieria for malnutrition at this time but is at risk in setting recent NPO status and achalasia.) ASSESSMENT / PLAN Patient meets ASPEN/AND criteria for -- (Patient does not meet ASPEN/AND critieria for malnutrition at this time but is at risk in setting recent NPO status and achalasia.) (12/03/2021 10:53 AM) See Nutrition Focused Physical Findings section for details. Nutrition Intervention: Interventions: Medical food supplement, Menu selection assistance, Vitamin and mineral supplements. Recommendations: ??? Dialyvite (renal vitamin) Monitoring/Evaluation: Nutrition parameter to monitor: Meals/Supplement Intake, Chewing/Swallowing, Pertinent Labs, Weight Status Desired Outcome: Adequate oral intake for weight maintenance. Patient Goal(s): 1. Patient to eat 75% or more of 3 or more meals plus 2 protein supplements daily. For questions about patient's nutritional care please contact pager [phone] on weekdays or [phone] on weekends/holidays. Kasia Narayanan Pharm.D., R.Ph. - 12/03/2021 9:26 AM CDT Pharmacist Progress Note Reason for admission: increased weakness, recent fall PMH: P-A-fib on Warfarin, HTN, ELENI, known Achalasia and significant esophageal motility disorder/dysphagia and frequent aspiration pneumonia events in the past OBJECTIVE Home medications: medication list completed by Provider ??? New: abx Prophylaxis: warfarin - INR supratherapeutic LBM: 11/30/21 Warfarin Warfarin Indication: Atrial fibrillation (AF) Type of therapy: Resume Prior average daily dose: 1.5 Comorbidities: Poor nutrition state (e.g. several days or more of significantly reduced dietary intake) Are any of these comorbidities new with admission? No Are there any new medication interactions with admission? Yes Target INR: 2 - 3 Day of therapy: 2 Notable drug interactions include the following: Zosyn Warfarin Administrations (last 168 hours) Date/Time Action Medication Dose 12/02/21 1702 Given warfarin tablet 0.5 mg (COUMADIN) 0.5 mg INR (no units) Date Value Status 12/03/2021 3.6 Final 2021 3.0 Final ASSESSMENT / PLAN 1.) Empyema w/ R Hydropneumothorax: on CT - Zosyn 2.25g Q8H (D2). S/p thoracentesis 12/02 w/ 250 mL removed and (-) organisms on gram stain - cytology/LD/protein pending. R pigtail drain placed 12/02 2.) ESRD: PD per nephrology. Continues home calcitriol 0.25 mcg MWF, torsemide 40 mg/d 3.) Paroxysmal AFIB: metoprolol 25 mg BID. Warfarin per pharmacy protocol - admit INR 3 (goal 2-3) w/ home dosing 1 mg Tues/Thurs/Sun and 2 mg all other days. INR this AM up to 3.6 - will hold warfarinthis evening and follow INR tomorrow. 4.) HTN, CV: continues home: hydralazine TID, metoprolol BID, isordil TID 5.) Constipation: Last bowel movement 11/30/21 per RN charting - bowel regimen intensified today Kasia Narayanan PharmD, BCPS [phone] Evette Pham APRN, C.N.P., D.N.P. - 12/03/2021 9:08 AM CDT SUBJECTIVE Mr. Castro was seen and examined in his room. He underwent Peritoneal dialysis last night with a net removal of 111 ml which he tolerated well. He tells me at home he often has 200-300 ml of fluid. I have called the lab to help locate the results of the glucose testing from the pleural fluid. Thusfar it has been >24 hours and the test is not in process. The renal lab is looking into this. We will plan peritoneal dialysis again tonight just as had last night. Eight hours; 4 exchanges of 1.5 L fluid each. PD Solution is all 1.5% Glucose, per his normal. No antibiotics needed. He tells me the PD nurses are nice, but he would like to see dialysis start at 8 pm, rather than the 10 pm he initiated last night. I explained ending dialysis at 4 am may be difficult for our staff, but that I would relay his concerns. He also is vocalizing his dissatisfaction with using a urinal at night, and not being able to walk unaccompanied to the bathroom while hooked to PD machine. He says that nobody has gotten his weight since he arrived here. I showed him the weight of 79.3 kg,but could not explain exactly when and where that was derived. I have reviewed the current medication list. OBJECTIVE Admission Weight: 79.3 kg Current Weight: 79.3 kg VITAL SIGNS Temperature: [36.4 ??C-36.7 ??C] 36.6 ??C Heart Rate: [62-86] 69 Resp Rate: [13-30] 16 Blood Pressure: (111-114)/(69-71) 114/71 SpO2: [97 %-99 %] 98 % Flow Rate (L/min): [0 L/min] 0 L/min Pulse Rate: [62-85] 73 Intake/Output Summary (Last 24 hours) at 12/03/2021 0908 Last data filed at 12/03/2021 0722 Gross per 24 hour Intake 596 ml Output 371 ml Net 225 ml Urine output 400 ml; dialysis 111 ml; chest tube 160 ml PHYSICAL EXAM General: Alert and oriented, in no acute distress. Sitting in a chair. He has his family with him. Heart: Regular rate and rhythm Lungs: Clear to auscultation in the anterior lung ramirez bilaterally Extremities: There is no edema of the lower extremities bilaterally As many family member present, I did not lift his hospital gown to examine the exit site. DIAGNOSTICS I have reviewed labs. ASSESSMENT / PLAN #1 End-stage renal disease secondary to nephrosclerosis, maintained on peritoneal dialysis since 08/2021 #2 Admitted on 2021 for acute weakness, found to have complex empyema #3 Chronic anemia related to end stage renal disease #4 Secondary hyperparathyroidism related to end stage renal disease #5 Hypertension #6 Hypokalemia - resolving He will continue with CCPD; 8 hours; 4 exchanges; 1.5 L fill volume; 1.5% glucose;with no day dwell per his usual outpatient prescription. He continues to have residual renal function and continues on Torsemide 40 mg PO daily. New recommendations: -- I have contacted the renal lab and they are looking into the [id number] on the pleural fluidglucose drawn > 24 hours prior. Please continue to investigate, or obtain another glucose level of pleural fluid if possible. -- I gave OK to use lowest possible contrast dye as team feels important for diagnosis. -- Please liberalize potassium in diet, removing 60 mEq K restrictions. Continued recommendations: -- Peritoneal dialysis x7 nights per week -- Dose medications for patients that have ESRD, on peritoneal dialysis -- Renal dialysis diet to include restrictions of: 90 mEq Na, 100 g protein, 80- 100 mg phosphorus. No potassium restriction currently needed. -- 1.5 L per day fluid restriction [...] TID three times weekly -- Continues on hydralazine 10 mg p.o. t.i.d., isosorbide dinitrate 5 mg p.o. t.i.d., metoprolol tartrate 25 mg p.o. b.i.d. and torsemide 40 mg p.o. daily ?? Disposition: -- Please keep Nephrology informed regarding 's disposition as it becomes known so that wecan ensure that their outpatient dialysis needs have been arranged appropriately. Addendum: Glucose in pleural fluid low at 46. Do not suspect a communication from peritoneum to pleural space. For questions or concerns, please page the Nephrology A [employer]PARER/PA pager, [phone] or you may text page by clicking here. Associated attestation - Yamileth Kennedy M.D., Ph.D. - 12/03/2021 8:05 PM CDT I was the supervising physician in the delivery of the service. I met with the patient interviewed examined him this afternoon in his room. He has recently transition to peritoneal dialysis in the lastmonth. In does CCPD at night 8 hours for exchanges 1.5 L fill volume 1.5% dextrose. He continues to have urine output on torsemide 40 mg daily. He has some concerns about timing of PD collection at the hospital and PD procedures in the hospital. We discussed these at length today with the patient and his . Exam: BP (!) 99/43 Pulse 66 Temp 36.6 ??C (Oral) Resp 16 Ht 167.6 cm Wt 79.3 kg SpO2 98% BMI28.23 kg/m?? Cardiovascular exam heart sounds 1 and 2 normal Lung ramirez clear Abdomen soft Peritoneal dialysis catheter exit site clean nontender Extremities no edema #1 Apnea Sleep Obstructive #2 Empyema Pleural (HCC) #3 Achalasia #4 Esophageal Motility Disorder #5 Dysphagia #6 Chronic Failure Renal End Stage Renal Disease Dialysis Dependent (HCC) #7 Dialysis Peritoneal Status (HCC) #8 Atrial Fibrillation Paroxysmal (HCC) #9 Hypertension Essential Primary #10 Elevated Alkaline Phosphatase #11 Anemia Of Chronic Disease Current dialysis prescription is working well We will continue this. He is undergoing workup for pleural effusion and has hydropneumothorax. He has a pleural drain in now. The glucose on the fluid is low therefore a diaphragmatic leak is unlikely. John Paul Dockery M.D., M.P.H. - 2021 6:13 PM CDT I saw and evaluated Mr. David Castro on rounds today with our medicine team, and I agree with the findings and plan as documented in today's progress note by Ms. Simran Moore PA-C with the following comments: #1 Apnea Sleep Obstructive #2 Empyema Pleural (HCC) #3 Achalasia #4 Esophageal Motility Disorder #5 Dysphagia #6 Chronic Failure Renal End Stage Renal Disease Dialysis Dependent (HCC) #7 Dialysis Peritoneal Status (HCC) #8 Atrial Fibrillation Paroxysmal (HCC) #9 Hypertension Essential Primary #10 Elevated Alkaline Phosphatase #11 Anemia Of Chronic Disease Mr.Thomas Castro is presently admitted for concerns for pleural empyema. He was seen by pulmonologyteam today. They performed thoracentesis removing about 275 cc of fluid. The bigger concern is the etiology behind his recurrent pleural effusions which could be secondary to likely dysphagia. We will have Nephrology follow him for his peritoneal dialysis needs. Will follow-up clinically. Continues on Zosyn for now. Anticipate discharge in the next 24-48 hours depending on his clinical progress. PLAN: Continue present cares Please refer to Ms. Simran Moore PA-C's note dated today for additional details about our team's plan of care. Ani Tariq P.T., D.P.T. - 2021 2:53 PM CDT 12/02/21 1453 Reason Therapy Missed Reason Therapy Missed Patient approached several times throughout day. On first approach, began subjective interview, however provider team arrived and patient requested deferral to later in day as he had several questions for primary team. On reapproach, patient noted to be with other disciplines andundergoing procedures. PT will follow-up for remaining evaluation as able and appropriate. Simran Helm P.A.-C., M.S. - 2021 1:23 PM CDT [facility] Medicine 8 ([facility]) Progress Notes SUBJECTIVE The [facility] Medicine 8 ([facility]) service evaluated Mr. Castro this morning on rounds. He generally feels well. Reports symptoms of being able to use his lower legs getting out of the car to stand. This happened approximately 2 weeks ago as well, at which time he sought evaluation in the ED any attributed hissymptoms to dehydration. He received IV fluids and discharged home the same evening. Prior to this episode, he walked on the treadmill 4 miles without any difficulty. He denies any numbness or paresthesias. No dizziness or presyncope. He has not had any worsening cough or shortness of breath. I reviewed the current medication list. 12 point review of systems is negative except for pertinent positives listed above. OBJECTIVE VITAL SIGNS Temperature: [36.3 ??C-36.7 ??C] 36.4 ??C Heart Rate: [64-93] 64 Resp Rate: [17-24] 17 Blood Pressure: (115-122)/(62-65) 115/62 SpO2: [97 %-98 %] 98 % Flow Rate (L/min): [0 L/min] 0 L/min Pulse Rate: [63-91] 63 Intake/Output Last 24 Hours: Date 12/01/21 07 - 12/02/21 0659(Not Admitted) 12/02/21 07 - 12/03/21 0659 Shift [id number] 3753-0722 3083-2916 24 Hour Total 2299-8505 0271-8287 4102-1019 24 Hour Total INTAKE Shift Total(mL/kg) OUTPUT Urine 300(0.5) 300(0.2) Urine 300 300 Unmeasured Urine Occurrence 1 x 1 x 1 x 1 x Shift Total(mL/kg) 300(3.8) 300(3.8) NET -300 -300 Weight (kg) 79.3 79.3 79.3 79.3 79.3 79.3 Net IO Since Admission: -300 mL [12/02/21 1323] PHYSICAL EXAM General: Alert, interactive, no apparent distress. Skin: No rashes or lesions. HEENT: Sclera anicteric. Hearing grossly intact. Moist mucous membranes. Lungs: No respiratory distress. Diffuse rales noted on the right, less so on the left. Heart: Regular rate and rhythm. No murmurs appreciated. No extremity edema. Abdomen: Bowel sounds present in all four quadrants. Abdomen is soft, nondistended, nontender. No organomegaly. Neuro: Grossly non-focal. 5/5 KAYDEN in lower extremities bilaterally. No cogwheeling rigidicty. Gait is normal. Mental: Mood and affect congruent. Alert and oriented. Attention intact. No evidence of disorganizedthinking. RASS 0. 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 DIAGNOSTICS I personally reviewed labs, imaging, EMR. ASSESSMENT / PLAN Mr. Castro is hospitalized on [facility] 8 ([facility]) for evaluation and management of Empyema Pleural(HCC). He was brought to the ED after he was unable to stand to get out of his car due to acute onset of lower extremity weakness. This is since resolved. Additional workup in the ED concerning for recurrent pleural effusions/empyema as below. He is admitted to [facility] 8 for further evaluation. #1 Weakness, generalized--improving He had a similar episode approximately 2 weeks ago which was attributed to dehydration. It is not clear what precipitated this episode of bilateral weakness again. His neuro exam is stable. We encourage Mr. Castro to remain as ambulatory as possible. #2 Empyema Pleural (HCC) #3 Achalasia #4 Esophageal Motility Disorder #5 Dysphagia #6 History of prior systolic HF, now with improved EF He has had previous myotomy, most recently on 12/03/2020 with dilation. Unfortunately dysphagia symptoms did not improve and no further workup pursued. He states he tolerates a regular diet with aspiration precautions. He has a history of recurrent right-sided pleural effusions requiring thoracentesis and chest tube. According to office visit from 08/2021, he has had prior right heart catheterization with normal filling pressures, and TTE with normal LVEF 60-65%. I am concerned with ongoing achalasia that he will continue to have right-sided pneumonias. We will continue aspiration precautions and await fluid culture results. So far, he is afebrile without leukocytosis or elevated lactate. Procalcitonin elevated at 0.18. -appreciate IP evaluation, thoracentesis removed nearly 300 cc of fluid today. -continue regular diet per patient's diet at home, maintain aspiration precautions -remains on Zosyn, renal adjustment -Outpatient follow-up with GI for esophageal consult for insight into any other possible intervention regarding achalasia #7 Elevated Alkaline Phosphatase Has been elevated as high as 300's in the past, with subsequent downtrend. This admission alk phos is 406, GGT 169. The remainder of his hepatic function is stable. Continue to monitor for now. 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 Has been stable since. -consult to nephrology for comanagement of dialysis needs -continue torsemide, lopressor, Warfarin per pharmacy protocol #13 Apnea Sleep Obstructive -compliant with home CPAP, held here given acute pulmonary issue above Diet: Regular Tubes/lines: PIV VTE prophylaxis: Warfarin PPI prophylaxis: Protonix Current Activity/Mobility: BMAT Level 4 (Able to stand and walk; needs staff assist if fall risk factors identified) Fall Injury Prevention: N/A - patient is not determined to be at risk of falling Disposition: Home Code status: Full Code Stable to discharge criteria (not yet met): Tests/procedures/consults Patient discussed with John Paul Dockery M.D., M.P.H. who is in agreement with plan of care detailed above. I provided [id number] counseling at bedside regarding the plan of care. The patient acknowledged an understanding and agreed with the plan of care listed above. I personally spent over half of a total 40 minutes in counseling and coordination of care as documented above. Simran Helm M.S., PA-C Pager: [phone] Kasia Ridley, Pharm.D., R.Ph. - 2021 9:48 AM CDT Pharmacist Progress Note Reason for admission: increased weakness, recent fall PMH: P-A-fib on Warfarin, HTN, ELENI, known Achalasia and significant esophageal motility disorder/dysphagia and frequent aspiration pneumonia events in the past OBJECTIVE Home medications: ?? Held: warfarin, PRN amoxicillin DVT Prophylaxis: held for procedure, INR 3.0 this AM Last BM: 11/30; has PRN bowel regimen Warfarin Warfarin Indication: No data recorded Other indication (comments): No data recorded Type of therapy: Resume Prior average daily dose: 1.5 Comorbidities: Poor nutrition state (e.g. several days or more of significantly reduced dietary intake) Are any of these comorbidities new with admission? No data recorded Are there any new medication interactions with admission? No data recorded Target INR: 2 - 3 Day of therapy: 1 Warfarin Administrations (last 168 hours) None INR (no units) Date Value Status 2021 3.0 Final ASSESSMENT / PLAN 1. Empyema: per CT, zosyn 2.25 every 8hrs (renal dj), pulm IR consulted for thoracentesis, fluid cultures pending 2. ESRD-PD: neph consulted, continues home: calcitriol MWF, torsemide 3. Anticoagulation: warfarin held (Paroxysmal afib), INR 3.0, last dose 11/30; restart post-thoracentesis 4. HTN/CV: continues home: hydralazine TID, metoprolol BID, isordil TID Home medication reconciliation: no additional recommendations Changes to medications anticipated at discharge: pending hospital course Warfarin INR is therapeutic A warfarin order of 0.5mg x1 has been placed for today and the pharmacist team will continue to follow the patient's clinical progress daily until discharge from the hospital. Kasia Ridley PharmNhung., R.Ph. [phone] documented in this encounter H&P Notes Jamal Andujar, DWIGHT, C.N.P. - 2021 1:00 AM CDT [facility] Medicine 8 ([facility]) Admission Note SUBJECTIVE CHIEF COMPLAINT Weakness x 24 hours HISTORY OF PRESENT ILLNESS Mr. David Castro is a 81 y.o. male who presents with the above. Mr. Castro lives with his and has ESRD V on nightly peritoneal dialysis, P-A-fib on Warfarin, HTN, ELENI, known Achalasia and significant esophageal motility disorder/dysphagia and frequent aspiration pneumonia events in the past. He reports yesterday 11/30 he was in his normal state of health, doing well. Reports today 12/01 around noon he got back from a trip, got out of his car and he could not stand, was very weak, sat down on the ground. He called his whom came home and helped him into the home. He sat in the recliner andwatched [employer] and after noted he was still very weak, thus took him to [facility]. At [facility], we do not have much info, as they are not in care everywhere; he reports he had labs and a CT, was told he had fluid around his lungs, thus he was given Zosyn and Clindamycin, reports around 1999 and 2199 roughly. Dali Van was working on trying to send him out; and eventually he was transitioned to [facility] here and directly admitted. In meeting Mr. Castro, he is laying in bed, very NAD, non-toxic, doing well on room air. He endorses the above. He reports some very mild SOB/SHEIKH, but baseline/unchanged, no respiratory complaints/changes. Reports his dysphagia is unchanged, he has to avoid Soft foods, but reports he knows what he can and cannot swallow, and reports some days better than others, but reports no aspiration pneumonia's for several years. Again unchanged. He notes some pain/tenderness around his PD/cath site, but also unchanged. Did not do PD tonight do to being in hospital. He has no other complaints. Dali Carlota gave him all his evening med's. I have reviewed and updated the following: Past Medical History, Family History, Social History, andAllergies. Current Outpatient Medications on File Prior to Encounter: ??? allopurinol (ZYLOPRIM) 100 mg tablet, Take 100 mg by mouth daily. ??? amoxicillin (AMOXIL) 500 mg capsule, Take 4 capsules by mouth. Prior to dental work ??? calcitRIOL (ROCALTROL) 0.25 mcg capsule, 1 capsule. 3 times weekly ??? hydrALAZINE (APRESOLINE) 10 mg tablet, Take 10 mg by mouth 3 (three) times a day. ??? isosorbide dinitrate (ISORDIL) 5 mg tablet, Take 5 mg by mouth 3 (three) times a day before meals. ??? metoprolol tartrate (LOPRESSOR) 25 mg tablet, Take 25 mg by mouth 2 (two) times a day. ??? omeprazole (PriLOSEC) [address] capsule, Take 20 mg by mouth daily. ??? torsemide (DEMADEX) 20 mg tablet, Take 40 mg by mouth daily. ??? warfarin (COUMADIN) 2 mg tablet, 1 mg on //Sun and 2 mg on ///Sat. ??? [DISCONTINUED] amLODIPine (NORVASC) 5 mg tablet, Take 5 mg by mouth daily. ??? [DISCONTINUED] hydrocortisone (HYTONE) 2.5 % cream, as needed. ??? [DISCONTINUED] propafenone (RYTHMOL) 225 mg tablet, Take 225 mg by mouth 3 (three) times a day. ??? [DISCONTINUED] sodium bicarbonate 650 mg tablet, Take 650 mg by mouth 3 (three) times a day. REVIEW OF SYSTEMS A complete ROS was done and negative, except pertinent positive items noted above in the HPI. OBJECTIVE VITAL SIGNS Temperature: [36.5 ??C] 36.5 ??C Heart Rate: [91] 91 Resp Rate: [22] 22 Blood Pressure: (122)/(65) 122/65 SpO2: [98 %] 98 % Flow Rate (L/min): [0 L/min] 0 L/min Height: [167.6 cm] 167.6 cm Weight: [79.3 kg] 79.3 kg BSA (Calculated - sq m): [1.92 sq meters] 1.92 sq meters BMI (Calculated): [28.2 kg/m??] 28.2 kg/m?? Pulse Rate: [91] 91 PHYSICAL EXAM Vital signs reviewed. Constitutional: General: NAD. Appearance: Normal appearance. Non-toxic. HENT: Head: Atraumatic. ENT: Mouth an oral pharynx are normal, moist, no exudate. Eyes: General: No scleral icterus. Cardiovascular: Rate and Rhythm: Irregular-irregular rhythm and rate. Heart sounds: S1/S2, no murmur or rub's heard. Pulmonary: Effort: Regular relaxed effort. No cough. Auscultation: Moderately diminished in Right lower/mid but more CTA superior, no crackles; CTA leftside. Extremities: Findings: Warm and well perfused, no calf tenderness. RLE: No lower leg edema. LLE: No lower leg edema. Abdominal: General: Abdomen is flat, soft, non-tender with active bowel sounds. Findings: No guarding, rigidity or rebound tenderness. Other: There is a peritoneal dialysis cath coming out of the RLQ, slightly tender around area, but no drainage, no s/s of infection. Skin: General: Skin is warm/dry. Findings: No rash or wounds seen on exposed skin. Neurological: General: No focal deficit's seen. Mental Status: Alert. Cranial Nerves: No obvious CN deficit's on gross exam. Psychiatric: Mood and Affect: Pleasant. Behavior: Cooperative. Muscleskeletal: Other: Was able to get to side of bed and stand independently, reported he was weak, did not trust walking, but was able to stand. DIAGNOSTICS I have independently reviewed the CT/CXR from [facility], showing Empyema with air, in Qreads. ASSESSMENT / PLAN # Empyema Pleural (HCC) Found on CT today after reporting to OSH for evaluation of acute weakness. Empyema is moderate to large with air. However doing well on RA, reports his chronic mild SOB/SHEIKH as unchanged, no cough. Reports his dysphagia is unchanged recently, reports no issues. Unclear etiology. EMR notes he got a doseof Zosyn 2.25 mg's and Clindamycin 900 mg's at OSH, patient thinks around 2000 and 2200. -Ordered CT/CXR for interpretation by [facility]. -Ordered CMP, Mg, Phos, CBCdiff, lactate, procalcitonin, INR Stat. --Once we have data, will call Pulm IR to determine how aggressive / fast we need intervention. --Will continue broad spectrum antibiotics for now. -NPO for now. -Holding Warfarin for now, did NOT reverse. ADDENDUM Doing well on RA, remains afebrile. No leukocytosis, lactate WNL, Procalcitonin is elevated at 0.18;K low at 3.2. -Continued Zosyn 2.25 mg q12 hr with next dose 0800 AM. -Consulted Interventional Pulmonary Consult, non urgent. -Consulted Nephrology, non urgent. -Kept NPO for now, no IVF's. -Did give 40 KCl. --Again holding Warfarin, did not reverse, INR 3.0 # Achalasia # Esophageal Motility Disorder # Dysphagia Ongoing and chronic. Reports no recent changes, has to avoid Soft foods. He reports no special diet, knows what he can swallow and what he can't. Reports no recent pneumonia or coughing issues. -NPO for now. -Regular diet, let him determine once able to eat. 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 Reports he never skips a session, so unsure howhe will do with missing tonight. Alert, no uremia. No lab's to review. -Will get STAT lab's as noted above; if stable, will consult Dialysis for tomorrow, if any indication on labs, will consult tonight. -Continued home Calcitriol. -Continued home Torsemide. # Atrial Fibrillation Paroxysmal (HCC) # Hypertension Essential Primary Review of Vitals show VSS and acceptable limits. No clinical s/s of CHF. -Continue home Hydralazine, Isosorbide, Metoprolol. -Continue home Torsemide for now. --Holding home Warfarin for now, did NOT reverse. # Apnea Sleep Obstructive Has home CPAP here, awaiting workup before we order use. # Weakness Episode of weakness today, reports it's better but still there, unclear etiology. -Will consult PT to follow. Diet: NPO for now. Tubes/lines: PIV and RLQ PD cath. VTE prophylaxis: therapeutic anticoagulation Code status: Full Code Baseline Mobility: BMAT Level 4 (Able to stand and walk) Disposition: Home Counseling was provided [id number] at bedside regarding the plan of care as stated above. I personally spent over half of a total 70 minutes in counseling and coordination of care as documented above. documented in this encounter Procedure Notes Jaqueline Fontanez M.D. - 2021 6:25 PM CDTAssociated Order(s): Pleural Drains Post-Procedure Diagnose(s): Empyema Pleural (HCC); Effusion Pleural; Hydropneumothorax Pleural Drains Date/Time: 2021 6:25 PM Performed by: Jaqueline Fontanez M.D. Authorized by: Jaqueline Fontanez M.D. Care team members present 1. Cj Jimenez M.D. PROCEDURE DETAILS Needle decompression: no Placement location: right posterior Intercostal space: 9th Tube type: pigtail Insertion of wire with dilators: yes Tube size (Fr): 12 Locking loop: yes Tube connected to drainage device at: -20 suction Drainage characteristics: serosanguinous Ultrasound image guidance used to localize target, identify at risk structures, and dynamically usedto direct therapy to the target. Image(s) acquired and saved. Additional procedure details: Patient tolerated procedure well. Upon starting suction, there was an air leak along with serosanguinous output. CONSENT Consent obtained: written UNIVERSAL PROTOCOL All relevant documentation and testing were reviewed and available. All required blood products, implants, devices and or special equipment were made available as applicable. Pre-procedure verificationwas conducted and the correct site was marked if required. A fire risk assessment was done as applicable. The procedural time-out was conducted prior to performing the procedure and confirmed in a procedural pause. PRE-PROCEDURE DETAILS Indications: pneumothorax Appropriate hand hygiene, gown, cap, mask, protective eyewear, sterile gloves, skin preparation, sterile drape, and strict aseptic technique were utilized as applicable for the procedure. Site preparation: chlorhexidine SEDATION / ANESTHESIA Anesthesia method: local infiltration Local infiltrate type: lidocaine POST-PROCEDURE DETAILS Post-insertion x-ray performed: yes X-ray findings: pending Procedure successful: yes Complications: no apparent complications ATTESTATION STATEMENT A resident or fellow participated in the procedure, and the financial analysis consultant was present for the entire procedure. Associated attestation - Cj Jimenez M.D. - 2021 6:42 PM CDT I was present for the entirety of the procedure(s). Jaqueline Fontanez M.D. - 2021 9:47 AM CDTAssociated Order(s): Thoracentesis Post-Procedure Diagnose(s): Effusion Pleural Thoracentesis Date/Time: 2021 9:47 AM Performed by: Jaqueline Fontanez M.D. Authorized by: Jaqueline Fontanez M.D. Care team members present 1. Cj Jimenez M.D. PROCEDURE DETAILS Patient position: sitting Location: right posterior Intercostal space: 9th Puncture method: qrfz-ggi-wmmyay catheter Number of attempts: 1 Drainage characteristics: serosanguinous and cloudy Estimated amount of fluid removed (ml): 275 Ultrasound image guidance used to localize target, identify at risk structures, and dynamically usedto direct therapy to the target. Image(s) acquired and saved. Additional procedure details: The procedure was terminated due to sufficient sample obtained. Fluid was serosanguinous and air was also evacuated. Post- procedure ultrasound showed minimal residual fluid. CONSENT Consent obtained: written UNIVERSAL PROTOCOL All relevant documentation and testing were reviewed and available. All required blood products, implants, devices and or special equipment were made available as applicable. Pre-procedure verificationwas conducted and the correct site was marked if required. A fire risk assessment was done as applicable. The procedural time-out was conducted prior to performing the procedure and confirmed in a procedural pause. PRE-PROCEDURE DETAILS Procedure purpose: diagnostic and therapeutic Indications: benign pleural effusion Appropriate hand hygiene, gown, cap, mask, protective eyewear, sterile gloves, skin preparation, sterile drape, and strict aseptic technique were utilized as applicable for the procedure. Site preparation: chlorhexidine SEDATION / ANESTHESIA Anesthesia method: local infiltration Local infiltrate type: lidocaine POST-PROCEDURE DETAILS Post-procedure chest x-ray performed: no Procedure successful: yes Complications: no apparent complications ATTESTATION STATEMENT A resident or fellow participated in the procedure, and the financial analysis consultant was present for the entire procedure. Associated attestation - Cj Jimenez M.D. - 2021 2:42 PM CDT I was present for the entirety of the procedure(s). documented in this encounter Consult Notes Aleida Flores M.D. - 12/03/2021 3:26 PM CDT INPATIENT SUPERVISORY CONSULT NOTE Date of Consultation: 12/03/2021 Requesting Service: [facility] Medicine 8 ([facility]) This is a supervisory note for Nicole Goel.B.S. I have reviewed the available records, interviewed and examined the patient. I agree with the chief complaint, history of present illness, past medical and surgical history, medications, physical examination, and impression/plan as outlined in Nicole Goel.B.S.'s note dated today except as differs below. Mr. Castro is a 81 y.o. male w/ ESRD on PD, Afib on warfarin, HTN, ELENI, long standing achalasia with esopagheal failure complicated by recurrent aspiration pneumonia who is in the hospital with new onset right-sided pleural effusion/empyema and we have been consulted for rule out of esophageal leak. Patient's achalasia was diagnosed in the and he underwent his 1st myotomy surgically in 1968. Since that time, he has had multiple food impactions and has maintained a modified diet with moderatesuccess. In 2001 he was found to have a GE junction ulcer which was determined to be benign. He was seen here in 2019 in our esophageal Clinic given progressive dysphagia and regurgitation. Evaluation of his lower esophageal sphincter with endo flip at that time showed good sphincter distensibility but he had poor esophageal motility. According to he and his at bedside, he has had recurrent episodes of food impactions and about 9 months ago underwent a repeat Heller myotomy locally with Dr. Awan at [facility]. The think that this was at least temporarily beneficial though he has had a recurrent episode of food impaction sincethat time. He states that food often gets into his lungs if he does not stay upright or he does not eat the right foods. He reports regurgitation of undigested solid and liquid foods. Denies reflux symptoms. Since arrival here he has undergone thoracentesis with initial fluid analysis consistent with empyema. However, this was accumulated relatively quickly and repeat fluid studies was notable for an amylase level of 59. ASSESSMENT / PLAN Given his significant esophageal history and relatively recent Heller myotomy, would be reasonable to evaluate the integrity of his esophageal lumen to rule out fistula and re-evaluate degree of motility though this will most likely show persistent severe dysmotility and aperistalsis given his disease. Serum amylase would be important to help evaluate the significance of his body fluid amylase level. His also possible that he is aspirating in the oropharynx leading to amylase in the pleural fluid. Recommendations: 1. Please obtain serum amylase level 2. Please obtain video swallow as well as esophagram. Remainder per Dr. Cross. Thank you for involving us in the care of this patient. We will follow. Sanjuana Flores M.D. 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 - 12/03/2021 2:24 PM CDTAssociated Order(s): IP CONSULT TO GASTROENTEROLOGY GASTROENTEROLOGY & HEPATOBILIARY CONSULT Date/Time: 12/03/2021 2:24 PM CDT Patient Name: David Castro : 1940 CONSULT Evaluation of: Dysphagia ?espohageal perforation Referring Provider: John Paul Dockery M.D. HISTORY OF PRESENT ILLNESS Mr. David Castro is a 81 y.o. male with PMH pertinent for ESRD on peritoneal dialysis, atrial fibrillation on warfarin, and known achalasia status post previous myotomy, Consultation was requested for evaluation of? Esophageal perforation Briefly, he is from [place] Lives at home Functionally very active and independent Here with family, provided much of history Admitted initially on 12/02 with weakness, imaging findings of AP well Tolerating soft foods at baseline No concern for aspiration CT chest in April 2021 for potential right lower lobe mass identified some small fluid collection Thoracentesis in April 2019, with serous pleural fluid After admission this time, performed a posterior right thoracentesis, with 300 cc of serosanguineousfluids. PH of 7.27 however unclear why he had a component of pneumothorax Underwent right-sided posterior pigtail placement on 12/03 connected to 20 cm of water suction Fluid studies from this Amylase of 59 Glucose 46 PH 7.27 Cytology negative Total nucleated cells 2000, 2% neutrophils, 78% lymphocytes Protein 3.2, LDH 343, suggestive of exudative effusion Previously used to see Dr. Werner, last seen in February 2019 At that time he was having dysphagia to solids than liquids as well as reflux History of achalasia, diagnosed initially in 1961, status post surgical myotomy in 1968 Did have food impaction requiring EGD multiple times Indeed 1 EGD here in 2001 that showed large ulcer at the esophagogastric junction with negative biopsies for malignancy Given reassuring EGD findings at that time, thought that his dysphagia was more related to dysmotility rather than achalasia Since then had been doing reasonably with dietary modifications but, had progressive dysphagia even to liquids Underwent Heller myotomy in November 2020 Despite that Reports multiple episodes of retained food, requiring lavage with NG tube Esophagram from January 2021, showing dilated esophagus similar to prior, with significant dysmotility and absent peristalsis Intermittent passage of contrast through GE junction And large volume of esophageal residue Reportedly, this was discussed at multidisciplinary conference, and no further interventions were deemed possible Unfortunately, this has led to repeated episodes of aspiration pneumonia He endorses that he will have this occur with solids and liquids, actually versus softer solids Will notice regurgitation even a day after eating, and reports there must be a large basket down there Will have no trouble swallowing as such No aspiration with oropharyngeal complaint of swallowing It is more to do with regurgitated contents No impaction No heartburn, however he describes elaborate lifestyle interventions such as not eating anything after 4:00 p.m., and staying upright for many hours before going to bed to avoid reflux/regurgitation episodes Has not lost weight Is still functionally active, and walk more than 5500 miles last year REVIEW OF SYSTEMS Negative except per HPI. PHYSICAL EXAM Vitals: BP 115/71 Pulse 63 Temp 36.5 ??C (Oral) Resp 20 Ht 167.6 cm Wt 79.3 kg SpO2 99% BMI 28.23 kg/m?? General: Comfortable, pleasant mood. In no distress Eyes: No pallor, icterus ENT: Well-hydrated. No crepitus over anterior chest Abdomen: Soft, nondistended, nontender. PD catheter in place. Extremities: No rash/edema PERTINENT DIAGNOSTIC STUDIES LABS Recent Labs 12/03/21 0926 12/03/21 0821 12/02/21 0101 WBC 6.1 5.3 5.6 HGB 10.9 L 10.2 L 10.1 L PLT 254 233 198 INR -- 3.6 3.0 NA -- 140 140 CL -- 101 101 BUN -- 50 H 51 H CREATININE -- 4.09 H 3.66 H CALCIUM -- 8.5 L 8.2 L ALBUMIN -- -- 2.7 L BILITOT -- -- 0.4 AST -- -- 19 ALT -- -- 11 ALKPHOS -- -- 406 H IMAGING EGD 02/2019 Dilated to 20 mm with TTS balloon dilation Per endo flip, sphincter consistent with treated achalasia ASSESSMENT AND PLAN Very pleasant 81-year-old gentleman with achalasia status post myotomy in 1968 and then 2020 admitted with weakness, and found to have right-sided empyema Despite myotomy last year, he has had episodes of esophageal food stasis and repeated episodes of aspiration leading to classical right lower lobe pneumonia and likely parapneumonic effusions. Indeed, on esophagram from last year, report alludes to dilated esophagus and stasis, which would coincide with his symptoms description of spontaneous regurgitation He describes excellent adherence to lifestyle interventions suggesting upright, and not eating before bed, but also describes a liberal diet, and unfortunately that may be the actionable part of diet that we can intervene-notably by suggesting a soft pureed diet PROBLEM LIST 1. History of achalasia, status post surgical myotomy to 2, most recently November 2020 2. Esophageal dysmotility and a peristalsis 3. Multiple episodes of aspiration pneumonia 4. Empyema right lower lobe RECOMMENDATIONS 1. Please obtain barium esophagram, along with swallow study to evaluate swallow function, but more importantly extent of esophageal dilation and absence of peristalsis 2. Please obtain serum amylase level so we may interpret degree of elevation in pleural fluid 3. If there is concern for an anatomical issue leading to poor esophageal emptying/esophageal leak, endoscopy could be considered 4. If, as is unfortunately likely, this is entirely related to poor dysmotility, encouraging lifestyle measures as he is already doing with liquid diet, upright posture, be reasonable. Given he is happy with his current quality of life, consideration such as NG tube may not be in line with his goals This patient was staffed with Dr. Sanjuana Flores, with the recommendations discussed with the primary team. Thank you for involving us in the care of this patient. We will continue to follow along. Please page the GI consult pager at [phone] with any questions or concerns. Ani Tariq P.T., D.P.T. - 12/03/2021 12:51 PM CDT Physical Therapy Inpatient Evaluation/Treatment SUBJECTIVE Patient's Name: David Castro Referring/Attending Provider: John Paul Dockery M.D. Medical Diagnosis: Empyema Pleural (HCC) [J86.9] Reason for Referral: PT eval and treat- acute Onset Date: 12/02/21 Payor: [employer] / Plan: [facility] MEDICARE COMPLETE / Product Type: PPO / PERTINENT MEDICAL / SURGICAL HISTORY: Patient Active Problem List Diagnosis ??? Apnea Sleep Obstructive ??? Cardiomegaly ??? Chronic Kidney Disease Stage 4 Glomerular Filtration Rate 15-29 (HCC) ??? Seizure Partial (HCC) ??? Empyema Pleural (HCC) ??? Achalasia ??? Esophageal Motility Disorder ??? Dysphagia ??? Chronic Failure Renal End Stage Renal Disease Dialysis Dependent (HCC) ??? Dialysis Peritoneal Status (HCC) ??? Atrial Fibrillation Paroxysmal (HCC) ??? Hypertension Essential Primary ??? Elevated Alkaline Phosphatase ??? Anemia Of Chronic Disease Past Surgical History: Procedure Laterality Date ??? APPENDECTOMY ??? OTHER CONVERTED SHX (SEE COMMENT) N/A 06/21/2002 > Esophagogastroduodenoscopy with Biopsies and Brushing ??? OTHER CONVERTED SHX (SEE COMMENT) N/A 09/18/2002 >Esophagogastroduodenoscopy ??? OTHER CONVERTED SHX (SEE COMMENT) N/A 06/19/2002 Right frontal craniotomy. >Resection of abscess. ??? OTHER CONVERTED SHX (SEE COMMENT) N/A 06/25/2003 >Esophagogastroduodenoscopy with Biopsies History of Present Illness: Patient is an 81 y/o male who presents with pleural empyema and weakness. Prior Function/Occupational Profile Lives With: Spouse ADL Assistance: Independent IADL/Homemaking Assistance: Independent IADL/Homemaking Assistance Comments: shared cooking with Driving: Independent Occupational Role: Retired Occupational Role Comments: Previously [employer] Leisure Interests: Walks 15 mi per day, lifts weights at the gym Prior Mobility/Functional Transfers Level of [place]: Independent Home Living Type of Home: House Home Layout: One level, Able to live on main level with bedroom/bathroom Home Access: Level entry Bathroom Shower/Tub: Walk-in shower Walk-in shower location: Main floor Bathroom Toilet: Standard Bathroom Accessibility: Yes Family/Caregiver Present: No Patient/Caregiver Goals: go home Patient Comments: Patient supine in bed upon arrival. Pleasant and agreeable to PT evaluation. No pain reported Precautions Other Precautions: aspiration Fall Risk (65 and older) Fall in the last 12 months: Yes (Sat down on the ground because of weakness.) Did you have an injury with the fall?: No Are you fearful of falling?: No OBJECTIVE Vitals stable per chart review. Cognition Arousal/Alertness: Appropriate responses to stimuli Attention: Addressed, no concerns noted Initiation: No difficulty with initiation Orientation: Oriented X4 Following Commands: Follows all commands/directions without difficulty Safety/Judgment: Addressed, no concerns noted Vision/Sensation Basic Assessment Baseline Vision/Correction: Wears glasses all the time Current Hearing Function: Hearing intact General ROM / Strength Screening ROM - Upper Extremity Screen: Addressed, no concerns noted ROM - Lower Extremity Screen: Addressed, no concerns noted Strength - Upper Extremity Screen: Addressed, no concerns noted Strength - Lower Extremity Screen: Addressed, no concerns noted Bed Mobility - Supine to Sit # of Assistants: 0 Level of Assistance: Independent Device: None Bed Mobility - Sit to Supine # of Assistants: 0 Level of Assistance: Independent Device: None Cuing: Verbal Sit to Stand Transfers # of Assistants: 0 Transfer Surface: Bed, Chair Transfer Equipment: Gait belt Level of Assistance: Modified Independent Assessment/Delivery: Assessed Comments: Patient completed several transfers from bed and chair surfaces throughout session. All transfers completed without difficulty with no UE support required. Stand to Sit Transfers # of Assistants: 0 Transfer Surface: Bed, Chair Transfer Equipment: Gait belt Level of Assistance: Modified independent Assessment/Delivery: Assessed Comments: No cues or physical assistance required. Patient able to independently manage positioning in relation to lines/tubes without cueing. Balance Static Sitting-Balance: Good (Maintains balance without support) Dynamic Sitting-Balance: Good (Maintains balance without support) Static Standing-Balance: Good (Maintains balance without support) Dynamic Standing-Balance: Good (Maintains balance without support) Gait Assessment/Training Distance (m): 266.67 m Surface: Even, Smooth/hard Device: Gait belt, No device # of Assistants: 1 Level of Assistance: Supervision/Set-up Stability: good without device Assessment of Gait: Good zarina without significant gait deviations. No device. Cueing Provided: Verbal Training/Intervention: Supervision for line/tube management only. Response: Patient tolerated well, without increase in fatigue or shortness of breath. Vitals remained WNL throughout. Activity Tolerance Endurance: Tolerates 20-30 minutes of activity, Endurance does not limit participation in activity Patient/Caregiver Education Completed this Session: ??? Role of PT in acute care ??? Discharge planning Patient's nurse was contacted and patient's status was discussed Patient was left in bedside chair at end of session with call light in reach, all needs met and questions answered. Contact monitoring: PPE used during therapy: Therapist was wearing the following PPE throughout entire session: surgicalmask and eye protection Patient was wearing a mask during therapy session: during hallway mobility Outcome Measures -[facility] Inpatient Short Form: -[facility] Basic Mobility (V.2) How much help from another person do you currently need???If the patient hasn't done an activity recently, how much help from another person do you think he/she would need if he/she tried? 1. Turning from your back to your side while in a flat bed without using bedrails?: None 2. Moving from lying on your back to sitting on the side of a flat bed without using bedrails?: None 3. Moving to and from a bed to a chair (including a wheelchair)?: None 4. Standing up from a chair using your arms (e.g., wheelchair, or bedside chair)?: None 5. To walk in hospital room?: A Little 6. Climbing 3-5 steps with a railing?: A Little AM-PAC Basic Mobility (V.2) Raw Score: 22 AM-PAC Basic Mobility (V.2) Standardized Score: 47.4 Interpretation: Clinicians answer the -[facility] Inpatient Short Form based on observed patient activityand/or clinical judgement (ie. patient can be scored without physically performing each activity) Based on scoring guidelines using the raw score value: Those going to home had an average score of 20.1 Those going home with home care had an average score of 17.9 Those going to SNF had an average score of 14 Those going to IRF had an average score of 13.6 Those going to a LTAC had an average score of 11.5 Assessment Discharge Therapy Needs - PT: No further skilled therapy Barriers to Discharge Home: None Clinical Impression of today's session: David Castro is a 81 y.o. y/o male who is admitted for pleural empyema and weakness. Patient currently presents with minimal impairments including supervision level assistance for ambulation for management of lines/tubes only. Patient is otherwise functioning at or near baseline level of function. Therefore, no further skilled PT in the acute care setting is indicated at this time. Recommendpatient to continue mobilizing in hallway with nursing during hospitalization. Patient verbalizes understanding and agreement with this plan. Please do not hesitate to re-consult PT if patient experiences a change in functional status. Thank you for this referral. Activity Recommendations During Hospitalization: ??? Encourage hallway ambulation 4-5x/day with nursing assistance for line management. Rehab potential: Mr. Castro has Excellent potential to achieve established physical therapy goals within the time frame outlined below. Tiered PT Evaluation Codes: Comorbid Conditions: Cardiopulmonary disease, Renal disease, Other (Comment) (dysphagia and achalasia) Personal Factors: History of falls Examination elements: 3 Clinical Presentation: Stable Clinical Decision Making: Low complexity clinical decision making Plan Patient agrees with the plan of care and goals. Treatment Plan: Plan: Discontinue PT PT Frequency: One-time visit Requires Inpatient Follow-Up: No PT Plan Comments: Patient demonstrating independence with all mobility, with exception of line management. No further skilled PT indicated Billing: Time Spent with Patient Evaluations PT Eval - Low Complexity: 15 min Therapeutic Interventions Gait Training (min): 12 min Time Tracking Total Timed Units (min): 12 min Total Treatment Time (min): 27 min Ani Tariq P.T., D.P.T. Cj Jimenez M.D. - 2021 6:58 PM CDT I have independently interviewed and examined Mr. Castro . I have reviewed available objective studies and consultations. I discussed this plan of care with the primary service as well as with Dr. Henna Moseley of the Interventional Pulmonary service. Please refer to her note from today for additional details. Briefly Mr. Castro is an 81-year-old male admitted today with complaints of weakness for [id number] hours. He has a pertinent past medical history of achalasia with recurrent episodes of aspirationas well as end-stage renal disease on peritoneal dialysis. He also has atrial fibrillation and is the rapeutically anticoagulated with an INR 3.0. During the course of his evaluation which has included CT scan from the 01 December 2021 there is evidence of a right hydropneumothorax with right lateral lower basal infiltrate versus consolidation. Also noted are areas of septations within the hydropneumothorax and smooth circumferential visceral pleural thickening the entirety of the right lung. I have reviewed the patient's prior reports and note that he has had a chronic right pleural effusion for which he underwent a thoracentesis on the right on the 19 April 2019. At that time 900 cc of fluid was removed. The character of the fluid was that of an exudate that was lymphocyte predominant and cultures and cytology were negative. Total protein on pleural fluid at that time was 4.3 with an LDH 117 and a pH 7.62. He has not undergone thoracentesis since that time. He has no report of asbestos exposure or exposure to tuberculosis. He has no recent chest wall trauma and denies chest pain. Laboratories here include white count of 5.6 with an elevated alk phosphatase of 406, albumin 2.7, procalcitonin elevated at 0.18. The patient has been started empirically on Zosyn. The patient indicates that he has never been told he had a right hydropneumothorax although he is aware that he has a chronic rightpleural effusion. I performed bedside thoracic ultrasound. This demonstrates a moderate right pleural effusion with a few thin septations. Given the patient's anticoagulation we proceeded initially with thoracentesis with 300 cc of fluid removed. Full characterization of the fluid is still pending however amylase is 59suggesting against an esophageal perforation. Total of 1976 nucleated cells are identified 78% whichare lymphocytes. PH is 7.27 and Gram stain and fungal stain are negative. At this point without a discrete explanation for the pneumothorax component nor full explanation forthe low pH is 7.27 we have proceeded with placement of a right 12 English locking loop thoracostomy tube. Post placement chest x-ray is pending. I/R/P #1 Right hydropneumothorax: The patient has a known chronic right pleural effusion with exudative character that has been present for over 2 years. That itself may be related to the patient's end-stagerenal disease. He has not however had any intervening procedures nor to have a discrete explanation for the now pneumothorax component. Concerning etiologies include bronchopleural fistula or gas-forming empyema. In truth I am doubtful that either is operative however in the setting of the low pH is 7.27 I do feel drainage is appropriate. This will help us better define whether there is a persistent air leak that will need to be addressed and will allow us to temporize as we await further studies. For now please keep the thoracostomy tube to -20 cm water pressure and flush 3 times daily with sterile saline. Given the high lymphocyte count we will also add flow cytometry to the pleural fluid analysis and I would ask for a serum protein electrophoresis. We will continue to follow. #2 End-stage renal disease, on peritoneal dialysis Jaqueline Fontanez M.D. - 2021 3:04 PM CDTAssociated Order(s): IP CONSULT TO INTERVENTIONAL PULMONOLOGY Images from the original note were not included. Pleural Service/Interventional Pulmonology Service Consult Note SUBJECTIVE Referral Source: Jamal Andujar, DWIGHT, C.N.P. Reason for Consult: Suspected empyema HISTORY OF PRESENT ILLNESS Mr Castro is an 81 y/o male with a pmhx of ESRD on peritoneal dialysis, HFrEF, atrial fibrillation on warfarin, achalasia and esophageal motility who was admitted for evaluation of weakness. Interventional pulmonology was consulted for evaluation of potential empyema. On admission, patient was afebrile and labs were pertinent for mild macrocytic anemia, no leukocytosis, or lactic acidosis. Overall, the patient denies any respiratory complaints. He states that he has previously undergone thoracentesis 2 years ago and was told the fluid was due to his heart failure. He does not recall everbeing told he had air in his lungs. He denies any fever, chills or cough. CT chest shows a complex right sided hydropneumothorax, concern for a potential bronchopleural fistula and atelectasis of the right lower lobe along with pleural thickening. I have reviewed the patient's past medical/surgical/social/family history along with medications andallergies in the EMR. OBJECTIVE PHYSICAL EXAMINATION Vital Signs: BP 112/70 Pulse 75 Temp 36.4 ??C (Oral) Resp 14 Ht 167.6 cm Wt 79.3 kg [id number]% BMI 28.22 kg/m?? General: pleasant, lying in bed with family at the side Pulmonary: no audible breathing, no increased work of breathing Bedside ultrasound demonstrated a moderate right pleural effusion with septations and no left pleural effusion. Images were saved and uploaded to [employer]. Bedside ultrasound demonstrating placement of guidewire for pigtail DIAGNOSTICS I have reviewed relevant laboratory, imaging, and other diagnostics as applicable to this consultation. Cubing Machine Tender CXR on CT Chest 12/01/21 compared to CXR in 2019 ASSESSMENT / PLAN Hydropneumothorax Weakness Esophageal motility disorder Dysphagia ESRD on peritoneal dialysis Paroxysmal atrial fibrillation on anticoagulation Essential hypertension Anemia of chronic disease HFrEF Patient did have a CT chest on for which we do not have images for. This CT was performedfor evaluation of a potential right lower lobe mass. However, as per reading, there was no mass and there was chronic volume loss within the right lower lobe and a decreased size in a right sided pleural effusion when compared to CT 04/15/2019 and CXR 05/17/2021. As per outside notes, patient's pleural effusion that was too small to be evacuated via thoracentesis in 04/2021 was deemed to be 2/2 heart failure given concomitant pericardial effusion. Patient did, however, undergo a thoracentesis in 03/2019with removal of 900cc of clear serous pleural fluid when he was admitted to [facility] for heart failure (EF 25-30%) Initially we performed a posterior right sided thoracentesis with evacuation of 300cc of serosanguinous cloudy pleural fluid. Preliminary labs were pertinent for a pH of 7.27 with lymphocytic predominant cell count. Labs and imaging (without being able to compare to prior images) in the setting of newsudden weakness are concerning for a potential underlying infection. It is unclear why the patient has a pneumothorax component. Current CT shows thickening of the pleural lining which identifies this an an underlying inflammatory of chronic problem. However, if the patient previously had a hydropneumothorax, we would assume that the space would have filled up with pleural fluid, especially in the setting of his ESRD and heart failure. Hence, it is unclear why he has this air component which was notpresent on CT on 04/2021. Differential includes: gas forming infection, ex vacuo, component broncho-pleuric fistula, esophageal- pleural fistula, . However, based on imaging the latter two are unlikely. Given the potential for an underlying infectious process based on the low pleural pH, the patient underwent placement of a posterior right sided 12F pigtail. Recommendations: 1. F/U pleural studies 2. 12F pigtail placed to -20 cm of H20 suction on the posterior right chest a. Please flush with 10cc of sterile saline tid The patient was seen and discussed with the supervising financial analysis consultant, Dr. Jimenez. We will continue to follow. Please contact [phone] with questions or concerns. Jaqueline Moseley M.D. [facility] Fellow Viki Waldrop O.T., O.T.[place] - 2021 1:50 PM CDT Occupational Therapy Dysphagia Evaluation/Treatment SUBJECTIVE Patient's Name: David Castro Referring/Attending Provider: John Paul Dockery M.D. Medical Diagnosis: Empyema Pleural (HCC) [J86.9] Reason for Referral: Reason for Referral: OT Dysphagia Eval/Treat Onset Date: 12/02/21 Payor: [facility] / Plan: [facility] MEDICARE COMPLETE / Product Type: PPO / PERTINENT MEDICAL / SURGICAL HISTORY: Patient Active Problem List Diagnosis ??? Apnea Sleep Obstructive ??? Cardiomegaly ??? Chronic Kidney Disease Stage 4 Glomerular Filtration Rate 15-29 (HCC) ??? Seizure Partial (HCC) ??? Empyema Pleural (HCC) ??? Achalasia ??? Esophageal Motility Disorder ??? Dysphagia ??? Chronic Failure Renal End Stage Renal Disease Dialysis Dependent (HCC) ??? Dialysis Peritoneal Status (HCC) ??? Atrial Fibrillation Paroxysmal (HCC) ??? Hypertension Essential Primary ??? Elevated Alkaline Phosphatase ??? Anemia Of Chronic Disease Past Surgical History: Procedure Laterality Date ??? APPENDECTOMY ??? OTHER CONVERTED SHX (SEE COMMENT) N/A 06/21/2002 > Esophagogastroduodenoscopy with Biopsies and Brushing ??? OTHER CONVERTED SHX (SEE COMMENT) N/A 09/18/2002 >Esophagogastroduodenoscopy ??? OTHER CONVERTED SHX (SEE COMMENT) N/A 06/19/2002 Right frontal craniotomy. >Resection of abscess. ??? OTHER CONVERTED SHX (SEE COMMENT) N/A 06/25/2003 >Esophagogastroduodenoscopy with Biopsies History of Present Illness:History of Present Illness: 81yo male with PMH of achalasia and frequent aspiration secondary to achalasia, and esophageal motility disorder Patient Comments: I haven't eaten in two days, I am hungry Precautions Other Precautions: aspiration OBJECTIVE Respiratory function: Patient on room air with no signs of distress throughout evaluation on this date. Baseline Assessment: Mental Status: Alert Temperature Spikes Noted: No Respiratory Status: Room air Tracheostomy: No Premorbid Nutrition Method: Oral Premorbid/Current Diet: Regular Premorbid Liquid Diet: Thin Premorbid Med Administration: Whole with liquid, Liquid Current Nutrition Method: Oral Current Diet: Regular Current Diet Liquid: Thin Current Med Administration: Whole with liquid Diet Restrictions: allergy to water; must use bottled water Patient Positioning: Other (comment) (edge of bed) Baseline Vocal Quality: Normal Volitional Cough: Strong Volitional Swallow: Within Normal Limits (WNL) Precautions Other Precautions: aspiration Clinical Dysphagia: Oral / Motor Dentition: Adequate Labial ROM: Within Normal Limits (WNL) Labial Symmetry: Within Normal Limits (WNL) Labial Strength: Within Normal Limits (WNL) Lingual ROM: Within Normal Limits (WNL) Velum: (0) Within Normal Limits (WNL) Mandible Strength: (0) Within Normal Limts Clinical Dysphagia Patient Position in Swallow Study: Other (Comment) (edge of bed) Liquids: Thin Solids: Puree (patient declined ashok cracker) Thin Presentation: Patient / caregiver Airway Protection: (no overt signs of aspiration noted) Puree Type of Puree Presented: Applesauce Presentation: Patient / caregiver Airway Protection: (no overt signs of aspiration noted) Aspiration Risk Risk for Aspiration: Severe (from regurgitation secondary to achalasia) Impressions Risk for Aspiration: Severe (from regurgitation secondary to achalasia) Functional Oral Intake Scale score: 6. Total oral intake with no special preparation, but must avoidspecific foods or liquid items Quality of Life for Eating: Strongly Agree Does the patient have a tracheostomy? No. Team Communication: Patient's nurse was contacted and patient's status was discussed, Primary service was contacted and patient's status was discussed Patient was left seated on edge of bed at end of session with call light in reach, all needs met andquestions answered. Contact monitoring: PPE used during therapy: Therapist was wearing the following PPE throughout entire session: surgicalmask, eye protection, and gloves Additional Staff Present During Session: Yue Perez, OT Assessment Dysphagia Consult Assessment: Time Dysphagia Assessment Completed: 1350 Clinical Impression: Mr. Castro participated in a clinical bedside dysphagia evaluation on 2021 to assess safety with oral intake/risks for aspiration. Factors contributing to aspiration risk include: extensive history of dysphagia Patient has significant history of esophageal dysphagia including achalasia (for 60+ years), and esophageal motility disorder. Patient reported he is unable to eat anything cold, avoids soft foods suchas mashed potatoes due to sensation of sticking in chest, and often regurgitates food within an hourof oral intake. Patient reported variability in foods/liquids that he can eat in which one day he isable to drink water but the next day he may not. Patient had a Video Fluoroscopic Swallow Study in 2019 which revealed small amount of laryngeal penetration within thin liquids; no evidence of aspiration. Patient reported dilations performed with no improvement in symptoms; patient reports there is nothing else they can do for me. Patient denies history of aspiration pneumonia. Patient's recent CXRrevealed fluid filled esophagus extending to thoracic inlet, and patchy airspace and consolidative opacities right min and lower lobe. Dysphagia Clinic Assessment: The patient participated in a clinical dysphagia evaluation this date to assess safety with oral intake/ risks for aspiration. Volitional cough and throat clear observed armen strong. Physical examination of the oral mechanism revealed facial symmetry at rest. Tracheal cartilage in midline and laryngeal rise present on palpation. Oral motor examination of the tongue, lips, cheeks, and jaw was observed to be adequate. Velar rise was symmetric and bilateral on phonation. Patient demonstrated adequate respiratory control with prolonged vowel of 8 seconds (normal 14-20sec).The patient participated in oral trials of thin and puree consistencies (bottled water and applesauce) resulting in no observable signs of aspiration/penetration. Ashok cracker was not trialed as patient refused due to report that would be too difficult to go down.The patient is taking medications whole with liquids with no coughing, throat clearing, or change in vocalizations. Suspected aspiration pneumonia likely due to regurgitation/reflux of food/liquid secondary to achalasia. Patient is aware of foods he is able to tolerate on a regular diet, however, due to high risk of aspiration, recommending patient be NPO at this time. GI consult appreciated for diet texture recommendations due to esophageal dysphagia. DIET RECOMMENDATIONS: Diet Recommendations - Solids: Regular Diet Recommendations - Liquids: Thin Recommended Form of Meds: Whole, With liquid Recommendations: GI Consult, Oral cares completed before any PO, Dysphagia treatment Recommended Aspiration Precautions: Recommended Aspiration Precautions: Watch closely for signs of aspiration, Sit upright with all oralintake and when completing oral cares, Avoid lying down for 30 minutes after meals, Good oral care 3-5 times a day, Eat smaller meals frequently throughout the day, Eat small bites, take small sips, eat slowly Recommended Compensation Techniques/Adaptive Equipment: Recommended Compensation Techniques/Adaptive Equipment: Alternate solid food with small amounts of liquids Positioning Recommendations: Upright as possible for all oral intake, Remain upright for 30-60 minutes after meals Recommendations for safe oral cares are as follows: -independent with regular or soft toothbrush/toothpaste Rehab potential: Mr. Castro has fair potential to achieve established occupational therapy goals within the time frame outlined below. Functional Goals and timeframes: Goal #1: Patient will verbalize 3 aspiration precautions with no cues by hospital discharge. Progressing Plan Dysphagia Consult Plan: Patient agrees with the plan of care and goals. Treatment Interventions: Swallow dysfunction treatment OT Dysphagia Duration: Until goals are met or hospital duration OT Dysphagia Amount: 1 visit per day OT Dysphagia Frequency: 2 times per week Inpatient OT Dysphagia Received On Date: 12/02/21 OT - Next Inpatient Dysphagia Appointment: 12/03/21 Plan: Plan of care initiated Plan Comments: check with primary service regarding plan; possible vfss?? Re-evaluate: As clinically indicated Treatment interventions may include: Plan for Next Session: Educate patient and/or caregiver on diet recommendations, Educate patient and/or caregiver on aspiration precautions Evaluations Clinical Dysphagia Evaluation (min): 20 min Time Tracking Total Treatment Time (min): 20 min Jeannine Jay APRN C.N.P., M.S.N. - 2021 8:08 AM CDTAssociated Order(s): IP CONSULT TO NEPHROLOGY SUBJECTIVE Consults Reason for Consult: Pt with Peritoneal Dialysis, admitted, missed qhs 12/01 run, will need 12/02. CHIEF COMPLAINT Management of hemodialysis while hospitalized for Empyema Pleural (HCC) [J86.9]. HISTORY OF PRESENT ILLNESS is a 81 y.o. 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 He has been admitted for acute weakness and was found to have a empyema on evaluation. normally does peritoneal dialysis 7 nights per [...] to his esophageal motility disorder and dysphagia. is seen in his hospital room this morning. He shares me that overall his PD has been going well. He denies any dyspnea, chest pain, nausea, vomiting, cramping, abdominal pain, diarrhea, constipation, or lightheadedness today. In regard to his empyema, he has no respiratory complaints and states that it was the weakness that brought him to the hospital. OBJECTIVE Admission Weight: 79.3 kg Current Weight: 79.3 kg VITAL SIGNS Temperature: [36.3 ??C-36.7 ??C] 36.4 ??C Heart Rate: [64-93] 64 Resp Rate: [17-24] 17 Blood Pressure: (115-122)/(62-65) 115/62 SpO2: [97 %-98 %] 98 % Flow Rate (L/min): [0 L/min] 0 L/min Pulse Rate: [63-91] 63 I/O 12/01 0000 12/01 2359 12/02 0000 12/02 2359 Urine (mL/kg/hr) 300 Total Output 300 Net -300 Unmeasured Urine Occurrence 2 x PHYSICAL EXAM General: is alert and oriented. Resting in the bed. Does not appear in acute distress. Cardiovascular: S1/S2, regular rate and rhythm. Respiratory: Clear to auscultation throughout lung ramirez bilaterally. Respirations are regular and non-labored. Breathing on room air. Extremities: No edema present in bilateral lower extremities. Abdomen: Bowel sounds present. Non-distended. Non-tender to palpation. DIAGNOSTICS Results from last 7 days Lab Units 12/02/21 0101 HEMOGLOBIN g/dL 10.1* WBC x10(9)/L 5.6 PLATELETS AUTO x10(9)/L 198 Last 2 results Lab Units 12/02/21 0101 SODIUM mmol/L 140 BICARBONATE S mmol/L 25 BUN mg/dL 51* CREATININE mg/dL 3.66* CALCIUM mg/dL 8.2* PHOSPHORUS INORGANIC mg/dL 3.8 MAGNESIUM mg/dL 1.8 ASSESSMENT / PLAN #1 End-stage renal disease [...] of surface antigen per dialysis unit guidelines Mr. Castro missed his PD treatment overnight last night due to admission to the hospital. He will continue with CCPD; 8 hours; 4 exchanges; 1.5 L fill volume; 1.5% glucose;with no day dwell per his usual outpatient prescription. He continues to have residual renal function and continues on Torsemide 40 mg PO daily. Given pleural effusion in the setting of peritoneal dialysis, we recognize that this could be PD fluid leaking into his pleural space. Appreciate Interventional Pulmonary has been consulted and we willawait the fluid analysis to assess for elevated glucose in the fluid. Additional imagining with dye into the PD fluid may need to be considered. Recommendations: -- Peritoneal dialysis x7 nights per week -- Dose medications for patients that have ESRD, on peritoneal dialysis -- Renal dialysis diet to include restrictions of: 90 mEq Na, 100 g protein, 60 mEq K+, 80-100 mg phosphorus. -- 1.5 L per day fluid restriction -- Dialyvite one tablet each evening -- Daily weights, standing if possible -- Strict I&O monitoring -- Gentamicin 0.1 % cream to be applied to PD catheter site daily. Please have nursing staff clean PD catheter site with soap and water daily prior to applying gentamicin cream to site and cover with gauze dressing. -- Please review potassium supplementation with nephrology in the setting of ESRD. I note that he received 40 mEq of potassium chloride this morning -- Continue calcitriol 0.25 mcg p.o. 3 times per week-- please adjust dosing as it is currently ordered as TID three times weekly -- Continues on hydralazine 10 mg p.o. t.i.d., isosorbide dinitrate 5 mg p.o. t.i.d., metoprolol tartrate 25 mg p.o. b.i.d. and torsemide 40 mg p.o. daily Disposition: -- Please keep Nephrology informed regarding 's disposition as it becomes known so that wecan ensure that their outpatient dialysis needs have been arranged appropriately. Thank you for the opportunity to participate in 's care. Plan of care was reviewed with Dr. Kennedy, Nephrology A financial analysis consultant For questions or concerns, please page the Nephrology A ELECTRICAL APPLIANCE PREPARER/PA pager ([phone]). Associated attestation - Yamileth Kennedy M.D., Ph.D. - 2021 6:46 PM CDT I was the supervising physician in the delivery of the service. I did not meet the patient today. I reviewed his CT scans which are concerning for large pleural effusion a bronchopleural fistula. Differential in stools also section which between peritoneal space and pleural space through diaphragmatic fenestrations or leak causing hydrothorax. Await diagnostic workup from pleural tap and pulmonology input. We are continuing his home peritoneal dialysis prescription in the hospital for now. documented in this encounter Nursing Notes Anita Hill R.N. - 12/08/2021 12:03 PM CDT Patient D/C [facility]. providing transport. Patient given AVS, RN discussed with patient and answeredquestions. VSS, IV removed. Yadi Lewis R.N. - 12/07/2021 5:50 PM CDT Shift Goals: Clinical Goals for the Shift: Patient will be VSS, on RA. Identify possible barriers to meeting goals/advancing plan of care: none End of Shift Summary: Patient remains VSS, on RA. Chest tube was removed. Xray completed post removal. Plan to discharge [facility] [place]. Problem: ALTERED NUTRIENT INTAKE - ADULT Goal: Nutrient intake appropriate for improving, restoring or maintaining nutritional needs Outcome: Progressing Note: Gambreler Helper able to meet with patient and at bedside (see note). Problem: DISCHARGE PLANNING Goal: Patient discharge needs identified Outcome: Progressing Note: able to provide transportation in afternoon. Problem: INFECTION - ADULT Goal: Absence of infection during hospitalization Outcome: Progressing Note: Patient continues on IV zosyn. Yadi Lewis R.N. - 12/06/2021 6:10 PM CDT Shift Goals: Clinical Goals for the Shift: Patient will remain VSS, on RA. Identify possible barriers to meeting goals/advancing plan of care: none End of Shift Summary: Patient remained VSS, on RA. Esophagram done. Chest tube remains in place on -20 suction. Plan for peritoneal dialysis tonight. Problem: INFECTION - ADULT Goal: Absence of infection during hospitalization Outcome: Progressing Note: Patient remains afebrile. Continues IV zosyn. Problem: SWALLOWING Goal: Prevention of aspiration Outcome: Progressing Note: Esophagram completed. Diet changed to regular. No nausea or aspiration noted following meal. Swallow eval and video swallow ordered. Paty Pina M.S., Antwan, EduardoSBaileyR.N. - 12/06/2021 5:50 AM CDT Shift Goals: Clinical Goals for the Shift: Pt will sleep well overnight Identify possible barriers to meeting goals/advancing plan of care: none End of Shift Summary: Pt slept well overnight. CT to -20 suction. NPO since midnight for esophogram today. Electronically signed by: Paty Pina M.S., Antwan, [email or web address] 12/06/21 5:52 AM CDT Charito Roche R.N. - 12/05/2021 6:12 PM CDT Problem: SAFETY ADULT Goal: Maintain a safe environment Outcome: Progressing Note: Pt remains safe in the room and call light appropriate. Problem: PAIN - ADULT Goal: PT VERBALIZES/DEMONSTRATES ADEQUATE COMFORT LEVEL OR BASELINE Outcome: Progressing Problem: SWALLOWING Goal: Prevention of aspiration Outcome: Progressing Shift Goals: Clinical Goals for the Shift: Pt will remain safe in the room Identify possible barriers to meeting goals/advancing plan of care: Pt condition End of Shift Summary: Goal met. See above notes. VSS. Pt metoprolol held in AM r/t low BP and HR. Sxaware. Pt will be NPO at midnight for possible esophagram. Paty Pina M.S., Antwan, [email or web address] - 12/05/2021 5:24 AM CDT Shift Goals: Clinical Goals for the Shift: Pt will sleep well overnight Identify possible barriers to meeting goals/advancing plan of care: CT End of Shift Summary: Pt slept well overnight. No complaints of pain. CT remains to -20 suction. PD done overnight. Electronically signed by: Paty Pina M.S., Antwan, EduardoSBaileyR.N. 12/05/21 5:26 AM CDT Charito Roche R.N. - 12/04/2021 6:16 PM CDT Problem: SAFETY ADULT Goal: Maintain a safe environment Outcome: Progressing Note: Pt remains safe in the room and call light appropriate. Problem: SAFETY ADULT - RISK FOR FALL AND OR FALL INJURY Goal: Patient remains free from fall/fall injury Outcome: Progressing Problem: PAIN - ADULT Goal: PT VERBALIZES/DEMONSTRATES ADEQUATE COMFORT LEVEL OR BASELINE Outcome: Progressing Note: Pt reported chronic pain on right shoulder at start of shift. Pt no longer endorsed pain aftervoltaren gel. Shift Goals: Clinical Goals for the Shift: Pt will remain vitally stable thoughout shift. Identify possible barriers to meeting goals/advancing plan of care: pt condition End of Shift Summary: Goal met. See above notes. Pt remains safe in the room and call light appropriate. Pt reported episode similar to what brought him in originally this AM. Pt described it as not being able to tell my legs what to do. Pt sensation was intact. Sx aware and came to bedside. Pt chest tube remains in place and placed back on suction by IP. Paty Pina M.S., RNicholas, Pablo.M.S.R.N. - 12/04/2021 5:26 AM CDT Problem: SAFETY ADULT Goal: Maintain a safe environment Outcome: Progressing Note: Call light appropriate Problem: PAIN - ADULT Goal: PT VERBALIZES/DEMONSTRATES ADEQUATE COMFORT LEVEL OR BASELINE Outcome: Progressing Note: Pain reported comfortable with scheduled medication Shift Goals: Clinical Goals for the Shift: Pt will sleep well overnight Identify possible barriers to meeting goals/advancing plan of care: None End of Shift Summary: Pt slept adequate overnight. PD ran. Pain controlled with medication per OCT. CT clamped at 1900. Electronically signed by: Paty Pina M.S., Antwan, PaulinaRBaileyNBailey 12/04/21 5:28 AM CDT Charito Roche R.N. - 12/03/2021 6:36 PM CDT Problem: SAFETY ADULT Goal: Maintain a safe environment Outcome: Progressing Note: Pt remains safe in the room and call light appropriate. Problem: SAFETY ADULT - RISK FOR FALL AND OR FALL INJURY Goal: Patient remains free from fall/fall injury Outcome: Progressing Problem: PAIN - ADULT Goal: PT VERBALIZES/DEMONSTRATES ADEQUATE COMFORT LEVEL OR BASELINE Outcome: Progressing Note: Pt endorsed pain around chest tube site and shoulder in AM. Voltaren gel was applied. Pt no longer endorsed pain. Problem: SWALLOWING Goal: Prevention of aspiration Outcome: Progressing Note: Pt had small episode of emesis with dinner. Shift Goals: Clinical Goals for the Shift: Pt will remain safe in the room Identify possible barriers to meeting goals/advancing plan of care: pt condition End of Shift Summary: Goal met. See above notes. VSS. Pt went for CT with contrast in afternoon. Chest tube remains in place and flushed twice during shift. Output remains serosanguinous. Chest tube will be clamped at 1900. Pt tolerated activity well throughout shift. Pt had small episode of emesis when eating dinner. Pt was able to tolerate 50% of meal. Dinah Hayden RNicholas - 12/03/2021 5:41 AM CDT Shift Goals: Clinical Goals for the Shift: Pt will report adequate pain relief this shift. Identify possible barriers to meeting goals/advancing plan of care: New CT End of Shift Summary: Pt reports adequate pain relief overnight. Received PD overnight. Continues onIV ABX. VSS. Swallow study planned for today. Will CTM. Regi Valerio R.N. - 2021 4:28 PM CDT Shift Goals: Clinical Goals for the Shift: Patient will remain safe and free from falls throughout shift duration Identify possible barriers to meeting goals/advancing plan of care: new chest tube/lines End of Shift Summary: VSS on room air. Thoracentesis completed by IP. Pigtail chest tube placed and set to -[id number] continuous suction. IV Zosyn administered. Plan for peritoneal dialysis tonight 12/02. Problem: SAFETY ADULT - RISK FOR FALL AND OR FALL INJURY Goal: Patient remains free from fall/fall injury Outcome: Progressing Note: Remained safe and free from falls. Problem: ALTERED NUTRIENT INTAKE - ADULT Goal: Nutrient intake appropriate for improving, restoring or maintaining nutritional needs Outcome: Progressing Note: Patient had one episode of emesis following meal. Tolerated some PO intake. Problem: SWALLOWING Goal: Prevention of aspiration Outcome: Progressing Note: OT dysphagia consulted. Continue to follow aspiration precautions. Electronically signed by: Regi Valerio R.N. 12/02/21 6:45 PM CDT Dinah Hayden R.N. - 2021 6:05 AM CDT Shift Goals: Clinical Goals for the Shift: Pt will settle onto unit. End of Shift Summary: Pt remains safe and free from falls since arriving to unit. CLA. VSS on room air without CPAP use. Pt tolerated PO medication with sips of bottled water with no issues. Denies pain. Plan for consults today. Will CTM. documented in this encounter Miscellaneous Notes Hospital Course - Maria G Adame P.A.-C., M.S. - 2021 12:26 PM CDT Mr. David Castro is a 81 y.o. male who presented to the [facility] ED with a chief complaint of weakness x 24 hours. Medical comorbidities include ESRD on nightly peritoneal dialysis, paroxysmal atrial fibrillation on Warfarin, HTN, ELENI, known achalasia and significant esophageal motility disorder/dysphagia and frequent aspiration pneumonia events in the past. Mr. Castro completed a PD session the afternoon prior to admission. He drove himself home, but whenhe attempted to get out of the car he felt he could not stand on both lower legs. He initially presented to [facility], then transitioned to [facility] for further care. Identified on CTperformed at [facility] to have a complex hydropneumothorax with scattered gas suspicious for pneumonia and/or empyema. Interventional pulmonary was consulted and proceeded with thoracentesis which drained approximately 300 cc of fluid. He was initiated on empiric Zosyn. In regards to his acute lower extremity weakness, no focal neurological deficits were noted. He noted similar episodes in the past after dialysis sessions. He felt subjectively better after increased p.o. fluid intake. PT and OT evaluated the patient and did not recommend any additional rehabilitationneeds at time of discharge. 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 Here, his pleural fluid analysis returned with a low pH and elevated TNC count which was suspicious for an infectious process. Given these findings, Interventional pulmonology proceeded with chest tube placement on 12/02. His initial admission CT noted possibility of bronchopleural fistula as a cause for his effusion; however, dedicated follow-up CT imaging returned negative. Another consideration for the etiology included a pleural-peritoneal leak, which was lower on the differential with a normal glucose level. A mildly elevated amylase level raised the suspicion for an esophageal leak. The patient underwent an esophagram on 12/06/2021 without evidence of esophageal leak. Overall evaluation for a peritoneal-pleural leak was deferred due to very low suspicion given pleural fluid findings. Mr. Castro passed a chest tube clamp trial with evidence of resolved pneumothorax. Chest tube was pulled on 12/07 without complication. His cultures had NGTD on day of discharge. He was continued on oral antibiotics for a total of 3 weeks. He will have follow-up with the pulmonology service with repeat imaging after that. Nephrology was consulted for peritoneal dialysis needs. In regards to his achalasia, gastroenterology and the floor dietitian were consulted. Overall, no indication for any invasive interventions. Swallow studies did show esophageal regurgitation, likely leading to aspiration and culprit of his recurrent pleural effusions. He was provided Education about the optimal diet for him. The possibility of a percutaneous feeding tube was also presented, however patient was not ready at this time. He was discharged in stable condition. documented in this encounter Plan of Treatment Upcoming Encounters Date Type Specialty Care Team Description 04/04/2022 Appointment Laboratory Medicine Mehrdad Lazcano APRN, C.N.P. [address] [place] [address] 04/04/2022 Appointment Cardiovascular Disease Mehrdad Lazcano APRN, C.N.P. [address] [place] [address] 04/05/2022 Ancillary Procedure Cardiovascular Disease Kayla Heredia M.D. [address] [place] [phone] 04/05/2022 Appointment Cardiovascular Disease Jessa Heredia M.D. [address] [place] [phone] 04/12/2022 Clinical Communication Admitting/Central Scheduling 04/15/2022 Comprehensive Visit Cardiovascular Disease Kayla Heredia M.D. [address] [place] [phone] documented as of this encounter Procedures Procedure Name Priority Date/Time Associated Comments Diagnosis RENAL FUNCTION PANEL, Timed 12/08/2021 9:26 Res ults for S AM CDT this procedure are in the results section. PROTHROMBIN TIME Routine 12/08/2021 9:26 Results for (PT), P AM CDT this procedure are in the results section. CBC WITHOUT Timed 12/08/2021 9:26 Results for DIFFERENTIAL, B AM CDT this procedu re are in the results section. BASIC METABOLIC Timed 12/07/2021 12:42 Results for PANEL, S/P PM CDT this procedure are in the results section. HEPATIC FUNCTION Routine 12/07/2021 12:38 Results for PANEL, S PM CDT this procedure are in the results section. PARATHYROID HORMONE Routine 12/07/2021 12:38 Resu lts for (PTH), S PM CDT this procedure are in the results section. DX CHEST 1 VIEW RAD - Semiurgent 12/07/2021 10:19 Resu lts for (Fast; most ED AM CDT this procedur e patients; some are in the inpatients) results section. CONTINUOUS CYCLING Routine 12/07/2021 9:47 PERITONEAL DIALYSIS AM CDT (CCPD) PROTHROMBIN TIME Routine 12/07/2021 8:06 Results for (PT), P AM CDT this procedure are in the results section. FL ESOPHAGRAM SINGLE RAD - Routine 12/06/2021 2:03 Res ults for CONTRAST (most inpatients PM CDT this proced ure and all are in the outpatients) results section. CONTINUOUS CYCLING Routine 12/06/2021 11:37 PERITONEAL DIALYSIS AM CDT (CCPD) RENAL FUNCTION PANEL, Routine 12/06/2021 4:17 Res ults for S AM CDT this procedure are in the results section. PROTHROMBIN TIME Routine 12/06/2021 4:17 Results for (PT), P AM CDT this procedure are in the results section. CONTINUOUS CYCLING Routine 12/05/2021 1:40 PERITONEAL DIALYSIS PM CDT (CCPD) BROAD RANGE BACTERIA Timed 12/05/2021 10:03 Res ults for PCR AND SEQUENCING AM CDT this proc edure are in the results section. RENAL FUNCTION PANEL, Routine 12/05/2021 8:34 Res ults for S AM CDT this procedure are in the results section. CONNECTIVE TISSUE Routine 12/05/2021 8:34 Results for DISEASE CASCADE, AM CDT this proced ure TAMIKA, S are in the results section. PROTHROMBIN TIME Routine 12/05/2021 8:34 Results for (PT), P AM CDT this procedure are in the results section. CONTINUOUS CYCLING Routine 12/04/2021 2:20 PERITONEAL DIALYSIS PM CDT (CCPD) DX CHEST AP OR PA AND RAD - Routine 12/04/2021 9:55 Re sults for LATERAL 2 VIEWS (most inpatients AM CDT this pro cedure and all are in the outpatients) results section. US GALLBLADDER AND OR RAD - Routine 12/04/2021 8:29 Re sults for BILIARY DUCTS (most inpatients AM CDT this proce dure and all are in the outpatients) results section. RENAL FUNCTION PANEL, Routine 12/04/2021 7:19 Res ults for S AM CDT this procedure are in the results section. PROTHROMBIN TIME Routine 12/04/2021 7:19 Results for (PT), P AM CDT this procedure are in the results section. AMYLASE, TOT, S Routine 12/04/2021 7:19 Results f or AM CDT this procedure are in the results section. CT CHEST WITH IV RAD - Routine 12/03/2021 3:36 Results for CONTRAST (most inpatients PM CDT this proced ure and all are in the outpatients) results section. CONTINUOUS CYCLING Routine 12/03/2021 12:11 PERITONEAL DIALYSIS PM CDT (CCPD) CBC WITHOUT Routine 12/03/2021 9:26 Results for DIFFERENTIAL, B AM CDT this procedu re are in the results section. PROTHROMBIN TIME Routine 12/03/2021 8:21 Results for (PT), P AM CDT this procedure are in the results section. CBC WITH Routine 12/03/2021 8:21 Results for DIFFERENTIAL, B AM CDT this procedu re are in the results section. ELECTROPHORESIS, Routine 12/03/2021 8:21 Results for PROTEIN, S AM CDT this procedure are in the results section. BASIC METABOLIC Routine 12/03/2021 8:21 Results f or PANEL, S/P AM CDT this procedure are in the results section. DX CHEST PORTABLE 1 RAD - Routine 12/03/2021 7:47 Resu lts for VIEW (most inpatients AM CDT this proced ure and all are in the outpatients) results section. DX CHEST PORTABLE 1 RAD - Routine 2021 8:23 Resu lts for VIEW (most inpatients PM CDT this proced ure and all are in the outpatients) results section. RI PLEURA DRAIN PERC Routine 2021 6:25 Empyema Pleural R esults for W IMG GUID PM CDT (HCC) this procedure Effusion Pleural are in the Hydropneumothora results x section. CONTINUOUS CYCLING Routine 2021 1:17 PERITONEAL DIALYSIS PM CDT (CCPD) AMYLASE, BF Routine 2021 10:04 Results for AM CDT this procedure are in the results section. RI THORACENTESIS Routine 2021 9:47 Effusion Pleural Resu lts for PLEURA W IMG AM CDT this procedure are in the results section. BROAD RANGE BACTERIA Timed 2021 9:36 Resu lts for PCR AND SEQUENCING AM CDT this proc edure are in the results section. CYTOLOGY NON-SPINDLE CARVER Timed 2021 9:36 Results for AM CDT this procedure are in the results section. PROTEIN, TOTAL, BF Timed 2021 9:36 Result s for AM CDT this procedure are in the results section. BACTERIAL CULTURE, Timed 2021 9:36 Result s for AEROBIC + SUSC AM CDT this procedur e are in the results section. CELL COUNT AND Timed 2021 9:36 Results fo r DIFFERENTIAL, BF AM CDT this proced ure are in the results section. PH, PLEURAL FLUID Timed 2021 9:36 Results for AM CDT this procedure are in the results section. FUNGAL SMEAR Timed 2021 9:36 Results for AM CDT this procedure are in the results section. GRAM STAIN Timed 2021 9:36 Results for AM CDT this procedure are in the results section. FUNGAL CULTURE, Timed 2021 9:36 Results f or ROUTINE AM CDT this procedure are in the results section. LACTATE DEHYDROGENASE Timed 2021 9:36 Res ults for (LD), BF AM CDT this procedure are in the results section. GLUCOSE, BODY FLUID Timed 2021 9:36 Resul ts for AM CDT this procedure are in the results section. INTERPRETATION OF RAD - Routine 2021 2:07 Result s for OUTSIDE DX CHEST (most inpatients AM CDT this pr ocedure and all are in the outpatients) results section. INTERPRETATION OF RAD - Routine 2021 2:01 Result s for OUTSIDE CT CHEST (most inpatients AM CDT this pr ocedure and all are in the outpatients) results section. PROCALCITONIN, S STAT 2021 1:01 Results for AM CDT this procedure are in the results section. PROTHROMBIN TIME STAT 2021 1:01 Results for (PT), P AM CDT this procedure are in the results section. CBC WITH STAT 2021 1:01 Results for DIFFERENTIAL, B AM CDT this procedu re are in the results section. PHOSPHORUS STAT 2021 1:01 Results for (INORGANIC), S AM CDT this procedur e are in the results section. MAGNESIUM, S STAT 2021 1:01 Results for AM CDT this procedure are in the results section. LACTATE, B/P STAT 2021 1:01 Results for AM CDT this procedure are in the results section. COMPREHENSIVE STAT 2021 1:01 Results for METABOLIC PANEL, S/P AM CDT this pr ocedure are in the results section. GAMMA-GLUTAMYLTRANSFE Routine 2021 12:57 Re sults for RASE (GGT), S/P AM CDT this procedu re are in the results section. documented in this encounter Results (ABNORMAL) Renal Function Panel (12/08/2021 9:26 AM CDT) P athologist Signature Potassium, S 3.9 3.6 - 5.2 12/08/2021 DTL mmol/L 10:28 AM CDT Sodium, S 140 135 - 145 12/08/2021 DTL mmol/L 10:28 AM CDT Chloride, S 102 98 - 107 12/08/2021 DTL mmol/L 10:28 AM CDT Bicarbonate, S 30 (H) 22 - 29 12/08/2021 DTL mmol/L 10:28 AM CDT Anion Gap 8 7 - 15 12/08/2021 DTL 10:28 AM CDT BUN (Blood 38 (H) 8 - 24 12/08/2021 DTL Urea mg/dL 10:28 AM CDT Nitrogen), S Creatinine, S 4.13 (H) 0.74 - 12/08/2021 DTL 1.35 mg/dL 10:28 AM CDT eGFR-Non <15 (L) >=60 12/08/2021 DTL Black/ mL/min/BSA 10:28 AM CDT [place] Comment: ----ADDITIONAL INFORMATION---- Estimated GFR calculated using the 2009 CKD_EPI creatinine equation. eGFR-Black/ <15 (L) >=60 mL/min/BSA 10:28 AM CDT DTL Comment: ----ADDITIONAL INFORMATION---- Estimated GFR calculated using the 2009 CKD_EPI creatinine equation. Calcium, Total, S 8.1 (L) 8.8 - 10.2 mg/dL 12/08/2021 10:2 8 AM CDT DTL Glucose, S 102 70 - 140 mg/dL 12/08/2021 10:28 AM CDT DTL Albumin, S 3.0 (L) 3.5 - 5.0 g/dL 12/08/2021 10:28 AM CDT DTL Phosphorus (Inorganic), S 3.8 2.5 - 4.5 mg/dL 12/09/19 10:28 AM CDT DTL Specimen Anatomical Collection Method Collection Time Receive d Time (Source) Location / / Volume Laterality Blood (Blood, 12/08/2021 9:26 AM 12/09/19 Venous) CDT 10:02 AM CDT Maria G Adame P.A.-C., M.S. LAB BLOOD ADD-ON Performing Organization Address City/State/ZIP Code Phon e Number [facility] - [address] [place], [place] [address] [facility] [place] [address] Laboratories-[facility] [address] (ABNORMAL) CBC without Differential (12/08/2021 9:26 AM CDT) [facility] Method Time Signature Hemoglobin 9.9 (L) 13.2 - 12/08/2021 DTL 16.6 g/dL 10:13 AM CDT Hematocrit 31.5 (L) 38.3 - 12/08/2021 DTL 48.6 % 10:13 AM CDT Erythrocytes 3.20 (L) 4.35 - 12/08/2021 DTL 5.65 10:13 AM CDT x10(12)/L MCV 98.4 (H) 78.2 - 12/08/2021 DTL 97.9 fL 10:13 AM CDT RBC Distrib Width 12.3 11.8 - 12/08/2021 DTL 14.5 % 10:13 AM CDT Platelet Count 156 135 - 317 12/08/2021 DTL x10(9)/L 10:13 AM CDT Leukocytes 5.2 3.4 - 9.6 12/08/2021 DTL x10(9)/L 10:13 AM CDT Specimen Anatomical Collection Method Collection Time Receive d Time (Source) Location / / Volume Laterality Blood (Blood, 12/08/2021 9:26 AM 12/09/19 9:46 Venous) CDT AM CDT Maria G Adame P.A.-C., M.S. LAB BLOOD ADD-ON Performing Organization Address City/State/ZIP Code Phon e Number [facility] - [address] [place] [address] [facility] [place] [address] Laboratories-[facility] 200 [facility] (ABNORMAL) Prothrombin Time (PT) (12/08/2021 9:26 AM CDT) [facility] gist Method Time Signature Prothrombin 16.5 (H) 9.4 - 12.5 12/08/2021 DTL Time, P sec 10:15 AM CDT INR 1.5 0.9 - 1.1 12/08/2021 DTL 10:15 AM CDT Comment: ----ADDITIONAL INFORMATION---- Standard intensity warfarin therapeutic range: 2.0 to 3.0 ?? High intensity warfarin therapeutic rang e: 2.5 to 3.5 Specimen Anatomical Collection Method Collection Time Receive d Time (Source) Location / / Volume Laterality Blood (Blood, 12/08/2021 9:26 AM 12/09/19 9:46 Venous) CDT AM CDT Simran Helm P.A.-C., M.S. LAB BLOOD ADD-ON Performing Organization Address City/State/ZIP Code Phon e Number [facility] - [address] [place], [place] [address] [facility] [address] Laboratories-[facility] [address] [facility] (ABNORMAL) Basic Metabolic Panel (12/07/2021 12:42 PM CDT) P athologist Signature Potassium, S 3.8 3.6 - 5.2 12/07/2021 DTL mmol/L 1:56 PM CDT Sodium, S 142 135 - 145 12/07/2021 DTL mmol/L 1:56 PM CDT Chloride, S 102 98 - 107 12/07/2021 DTL mmol/L 1:56 PM CDT Bicarbonate, S 31 (H) 22 - 29 12/07/2021 DTL mmol/L 1:56 PM CDT Anion Gap 9 7 - 15 12/07/2021 DTL 1:56 PM CDT BUN (Blood 40 (H) 8 - 24 12/07/2021 DTL Urea mg/dL 1:56 PM CDT Nitrogen), S Creatinine, S 4.46 (H) 0.74 - 12/07/2021 DTL 1.35 mg/dL 1:56 PM CDT eGFR-Non <15 (L) >=60 12/07/2021 DTL Black/ mL/min/BSA 1:56 PM CDT [place] Comment: ----ADDITIONAL INFORMATION---- Estimated GFR calculated using the 2009 CKD_EPI creatinine equation. eGFR-Black/ <15 (L) >=60 mL/min/BSA 2021 1:56 PM CDT DTL Comment: ----ADDITIONAL INFORMATION---- Estimated GFR calculated using the 2009 CKD_EPI creatinine equation. Calcium, Total, S 8.5 (L) 8.8 - 10.2 mg/dL 12/07/2021 1:56 PM CDT DTL Glucose, S 98 70 - 140 mg/dL 12/07/2021 1:56 PM CDT D TL Specimen Anatomical Collection Method Collection Time Receive d Time (Source) Location / / Volume Laterality Blood (Blood, 12/07/2021 12:42 12/07/2021 1:39 Venous) PM CDT PM CDT Maria G Adame P.A.-C., M.S. LAB BLOOD ADD-ON Performing Organization Address City/State/[facility] Phon e Number [facility] - [address] [place] [address] Laboratories-[address] (ABNORMAL) Parathyroid Hormone (PTH) (12/07/2021 12:38 PM CDT) Analysis Performed At Patho logist Time Signature Parathyroid 100 (H) 15 - 65 12/08/2021 DTL Hormone (PTH), S pg/mL 9:07 AM CDT Specimen Anatomical Collection Method Collection Time Receive d Time (Source) Location / / Volume Laterality Blood (Blood, 12/07/2021 12:38 12/08/2021 8:14 Venous) PM CDT AM CDT Natalie Travis APRNNBaileyPBailey LAB BLOOD ADD-ON Performing Organization Address City/[facility] Phon e Number [facility] - [address] (ABNORMAL) Hepatic Function Panel (12/07/2021 12:38 PM CDT) Patholo gist Method Time Signature Bilirubin, Total, S 0.3 <=1.2 12/07/2021 DTL mg/dL 2:43 PM CDT Bilirubin, Direct, S <0.2 0.0 - 0.3 12/07/2021 DTL mg/dL 2:43 PM CDT Aspartate 26 8 - 48 12/07/2021 DTL Aminotransferase U/L 2:43 PM CDT (AST), S Alanine 14 7 - 55 12/07/2021 DTL Aminotransferase U/L 2:43 PM CDT (ALT), S Alkaline 298 (H) 40 - 129 12/07/2021 DTL Phosphatase, S U/L 2:43 PM CDT Albumin, S 2.9 (L) 3.5 - 5.0 12/07/2021 DTL g/dL 2:43 PM CDT Protein, Total, S 6.1 (L) 6.3 - 7.9 12/07/2021 DTL g/dL 2:43 PM CDT Specimen Anatomical Collection Method Collection Time Receive d Time (Source) Location / / Volume Laterality Blood (Blood, 12/07/2021 12:38 12/07/2021 2:18 Venous) PM CDT PM CDT Maria G Adame P.A.-C. M.SBailey LAB BLOOD ADD-ON Performing Organization Address City/State/ZIP Code Phon e Number [facility] - [address] [place], [place] [address] [facility] [address] Laboratories-[facility] [address] DX Chest 1 View (12/07/2021 10:19 AM CDT) Anatomical Region Laterality Modality Chest, Thoracic RST LOS, Thoracic ARZ LOS, Thoracic N/A Digital Radiography FLA LOS Specimen (Source) Anatomical Collection Method Collection Time Re ceived Time Location / / Volume Laterality 12/07/2021 10:19 AM CDT Impressions 12/07/2021 10:34 AM CDT Since 12/04/2021, the right pleural pigtail catheter has been removed. Tiny right basilar pneumothorax, which may in part be due to lack of lung expansion. Exam otherwise unchanged. Right lung base atelectasis/scarring. Sm all right pleural effusion. Enlarged cardiac silhouette. Calcified tortuous aorta. Narrative 12/07/2021 10:34 AM CDT EXAM: ??DX CHEST 1 VIEW Procedure Note Travis Lazcano M.D. - 12/07/2021Form atting of this note might be different from the original. EXAM: DX CHEST 1 VIEW IMPRESSION: Since 12/04/2021, the right pleural pigt ail catheter has been removed. Tiny right basilar pneumothorax, which may in part be due to lack of lung expansion. Exam otherwise unchanged. Right lung base atelectasis/scarring. Sm all right pleural effusion. Enlarged cardiac silhouette. Calcified tortuous aorta. Jaqueline Moseley M.D. [facility] RI OCEDURES (ABNORMAL) Prothrombin Time (PT) (12/07/2021 8:06 AM CDT) [facility] Method Time Signature Prothrombin 16.8 (H) 9.4 - 12.5 12/07/2021 DTL Time, P sec 9:02 AM CDT INR 1.5 0.9 - 1.1 12/07/2021 DTL 9:02 AM CDT Comment: ----ADDITIONAL INFORMATION---- Standard intensity warfarin therapeutic range: 2.0 to 3.0 ?? High intensity warfarin therapeutic rang e: 2.5 to 3.5 Specimen Anatomical Collection Method Collection Time Receive d Time (Source) Location / / Volume Laterality Blood (Blood, 12/07/2021 8:06 AM 12/08/19 8:43 Venous) CDT AM CDT Simran Helm P.A.-C., M.S. LAB BLOOD ADD-ON Performing Organization Address City/State/ZIP Code Phon e Number [facility] - [address] [place], [place] [address] [facility] [place] [address] Laboratories-[facility] [address] [facility] Esophagram Single Contrast (12/06/2021 2:03 PM CDT) Anatomical Region Laterality Modality Gastro Intestinal, Abdominal RST LOS, Abdominal ARZ N/A Digital Radiography LOS, Abdominal FLA LOS Specimen (Source) Anatomical Collection Method Collection Time Re ceived Time Location / / Volume Laterality 12/06/2021 2:40 PM CDT Impressions 12/06/2021 3:12 PM CDT 1. No evidence of extraluminal leak. 2. Dilated patulous esophagus with dista l tapering consistent with history of achalasia. Narrative 12/06/2021 3:12 PM CDT EXAM: ??FL ESOPHAGRAM SINGLE CONTRAST COMPARISON: ??Esophagram 09/17/2018. FINDINGS: ??Preprocedural regional facilities specialist image de monstrates partially visualized right pleural pigtail catheter. Aortic calcification. Single c ontrast esophagram was performed in the upright position in AP and LPO and semi-upright RPO obliquit ies. Images obtained using water-soluble contrast. Dilated patulous upper two-thirds of the thoraci c esophagus with relative distal narrowing consistent with history of achalasia. Tertiary contracti ons. Contrast passed through the esophagus into the stomach. No contrast extravasation to suggest ext raluminal leak. Procedure Note James Perez M.D. - 12/06/2021Formatt ing of this note might be different from the original. EXAM: FL ESOPHAGRAM SINGLE CONTRAST COMPARISON: Esophagram 09/17/2018. FINDINGS: Preprocedural regional facilities specialist image demo nstrates partially visualized right pleural pigtail catheter. Aortic calcification. Single c ontrast esophagram was performed in the upright position in AP and LPO and semi-upright RPO obliquit ies. Images obtained using water-soluble contrast. Dilated patulous upper two-thirds of the thoraci c esophagus with relative distal narrowing consistent with history of achalasia. Tertiary contracti ons. Contrast passed through the esophagus into the stomach. No contrast extravasation to suggest ext raluminal leak. IMPRESSION: 1. No evidence of extraluminal leak. 2. Dilated patulous esophagus with dista l tapering consistent with history of achalasia. Simran Helm P.A.-C., M.S. IMG FLUOROSCOPY PROCEDU RES (ABNORMAL) Renal Function Panel (12/06/2021 4:17 AM CDT) P athologist Signature Potassium, S 3.9 3.6 - 5.2 12/06/2021 DTL mmol/L 5:40 AM CDT Sodium, S 139 135 - 145 12/06/2021 DTL mmol/L 5:40 AM CDT Chloride, S 99 98 - 107 12/06/2021 DTL mmol/L 5:40 AM CDT Bicarbonate, S 28 22 - 29 12/06/2021 DTL mmol/L 5:40 AM CDT Anion Gap 12 7 - 15 12/06/2021 DTL 5:40 AM CDT BUN (Blood 40 (H) 8 - 24 12/06/2021 DTL Urea mg/dL 5:40 AM CDT Nitrogen), S Creatinine, S 4.52 (H) 0.74 - 12/06/2021 DTL 1.35 mg/dL 5:40 AM CDT eGFR-Non <15 (L) >=60 12/06/2021 DTL Black/ mL/min/BSA 5:40 AM CDT [place] Comment: ----ADDITIONAL INFORMATION---- Estimated GFR calculated using the 2009 CKD_EPI creatinine equation. eGFR-Black/ <15 (L) >=60 mL/min/BSA 2021 5:40 AM CDT DTL Comment: ----ADDITIONAL INFORMATION---- Estimated GFR calculated using the 2009 CKD_EPI creatinine equation. Calcium, Total, S 8.1 (L) 8.8 - 10.2 mg/dL 12/06/2021 5:40 AM CDT DTL Glucose, S 106 70 - 140 mg/dL 12/06/2021 5:40 AM CDT D TL Albumin, S 2.7 (L) 3.5 - 5.0 g/dL 12/06/2021 5:40 AM CDT D TL Phosphorus (Inorganic), S 4.8 (H) 2.5 - 4.5 mg/dL 12/07/19 5:40 AM CDT DTL Specimen Anatomical Collection Method Collection Time Receive d Time (Source) Location / / Volume Laterality Blood (Blood, 12/06/2021 4:17 AM 12/07/19 5:00 Venous) CDT AM CDT Simran Helm P.A.-C., M.S. LAB BLOOD ADD-ON Performing Organization Address City/[facility] Phon e Number [facility] - [address] [place], [place] [address] [facility] [place] [address] Laboratories-[facility] 200 [facility] (ABNORMAL) Prothrombin Time (PT) (12/06/2021 4:17 AM CDT) [facility] Method Time Signature Prothrombin 22.9 (H) 9.4 - 12.5 12/06/2021 DTL Time, P sec 5:01 AM CDT INR 2.1 0.9 - 1.1 12/06/2021 DTL 5:01 AM CDT Comment: ----ADDITIONAL INFORMATION---- Standard intensity warfarin therapeutic range: 2.0 to 3.0 ?? High intensity warfarin therapeutic rang e: 2.5 to 3.5 Specimen Anatomical Collection Method Collection Time Receive d Time (Source) Location / / Volume Laterality Blood (Blood, 12/06/2021 4:17 AM 12/07/19 4:42 Venous) CDT AM CDT Simran Helm P.A.-C., M.S. LAB BLOOD ADD-ON Performing Organization Address City/State/[facility] Phon e Number [facility] - [address] [place], [place] [address] [place] [address] Laboratories-[facility] 200 [facility] Broad Range Bacteria PCR+Sequencing (12/05/2021 10:03 AM CDT) Component Value Ref Test Analysis Performed At Patholo gist Range Method Time Signature Broad Range No bacterial DNA detected. 12/07/2021 DTL Bacteria This test was developed and its performance characteri stics 2:17 PM CDT PCR+Sequencin determined by [facility] in a manner consistent with g CLIA requirements. This test has not been cleared or approved by the U.S. Food and Drug Administration. Specimen Anatomical Collection Method Collection Time Receive d Time (Source) Location / / Volume Laterality Fluid (Pleural 12/05/2021 10:03 2 Fluid, Right) AM CDT 10:40 AM CDT Comment: Specimen Source Site: Fluid Joyce Giles LAB MICROBIOLOGY - GENERAL O RDERABLES Performing Organization Address City/[facility] Phon e Number [facility] - [address] [place], [place] [address] [place] [address] Laboratories-[address] (ABNORMAL) Renal Function Panel (12/05/2021 8:34 AM CDT) P athologist Signature Potassium, S 3.8 3.6 - 5.2 12/05/2021 DTL mmol/L 9:25 AM CDT Sodium, S 138 135 - 145 12/05/2021 DTL mmol/L 9:25 AM CDT Chloride, S 101 98 - 107 12/05/2021 DTL mmol/L 9:25 AM CDT Bicarbonate, S 28 22 - 29 12/05/2021 DTL mmol/L 9:25 AM CDT Anion Gap 9 7 - 15 12/05/2021 DTL 9:25 AM CDT BUN (Blood 41 (H) 8 - 24 12/05/2021 DTL Urea mg/dL 9:25 AM CDT Nitrogen), S Creatinine, S 4.30 (H) 0.74 - 12/05/2021 DTL 1.35 mg/dL 9:25 AM CDT eGFR-Non <15 (L) >=60 12/05/2021 DTL Black/ mL/min/BSA 9:25 AM CDT [place] Comment: ----ADDITIONAL INFORMATION---- Estimated GFR calculated using the 2009 CKD_EPI creatinine equation. eGFR-Black/ <15 (L) >=60 mL/min/BSA 2021 9:25 AM CDT DTL Comment: ----ADDITIONAL INFORMATION---- Estimated GFR calculated using the 2009 CKD_EPI creatinine equation. Calcium, Total, S 8.3 (L) 8.8 - 10.2 mg/dL 12/05/2021 9:29 AM CDT DTL Glucose, S 117 70 - 140 mg/dL 12/05/2021 9:25 AM CDT D TL Albumin, S 2.8 (L) 3.5 - 5.0 g/dL 12/05/2021 9:25 AM CDT D TL Phosphorus (Inorganic), S 4.0 2.5 - 4.5 mg/dL 12/06/19 9:25 AM CDT DTL Specimen Anatomical Collection Method Collection Time Receive d Time (Source) Location / / Volume Laterality Blood (Blood, 12/05/2021 8:34 AM 12/06/19 9:09 Venous) CDT AM CDT Simran Helm P.A.-C., M.S. LAB BLOOD ADD-ON Performing Organization Address City/State/ZIP Code Phon e Number [facility] - [address] [place] [address] [facility] [place] [address] Laboratories-[facility] 200 [facility] Connective Tissue Diseases [place] (12/05/2021 8:34 AM CDT) P athologist Signature Antinuclear Ab, 0.4 <=1.0 12/06/2021 [facility]SC S (Negative) 1:12 PM CDT U Comment: ----ADDITIONAL INFORMATION---- Method: Enzyme-linked immunoassay using HEp-2 nuclear extract supplemented with purified antig ens. Cyclic Citrullinated <15.6 <20.0 (Negative) U 12/06/2021 10:49 AM SDSC Peptide Ab, S CDT Interpretation SEE COMMENT 12/06/2021 1:12 PM SDSC CDT Comment: Tests for antibodies to dsDNA and SHREYAS an tigens are not performed automatically unless the TANVIR r esult is > or = 3.0 U. ??Studies performed at [facility] indicate that positive TANVIR results <3.0 U are rarely a ccompanied by positive second order tests. Specimen Anatomical Collection Method Collection Time Receive d Time (Source) Location / / Volume Laterality Blood (Blood, 12/05/2021 8:34 AM 12/07/19 7:51 Venous) CDT AM CDT Simran Helm P.A.-C., M.S. LAB BLOOD ADD-ON Performing Organization Address City/[facility] Phon e Number [facility] [address] [place], [place] [address] [address] [facility] [facility] [place] [address] Laboratory Medicine and Pathology [address] [place] (ABNORMAL) Prothrombin Time (PT) (12/05/2021 8:34 AM CDT) [facility] Method Time Signature Prothrombin 29.4 (H) 9.4 - 12.5 12/05/2021 DTL Time, P sec 9:14 AM CDT INR 2.6 0.9 - 1.1 12/05/2021 DTL 9:14 AM CDT Comment: ----ADDITIONAL INFORMATION---- Standard intensity warfarin therapeutic range: 2.0 to 3.0 ?? High intensity warfarin therapeutic rang e: 2.5 to 3.5 Specimen Anatomical Collection Method Collection Time Receive d Time (Source) Location / / Volume Laterality Blood (Blood, 12/05/2021 8:34 AM 12/06/19 8:54 Venous) CDT AM CDT Simran Helm P.A.-C., M.S. LAB BLOOD ADD-ON Performing Organization Address City/[facility] Code Phon e Number [facility] - [address] [place], [place] [address] [place] [address] Laboratories-[facility] [address] DX Chest AP or PA and Lateral 2 Views (12/04/2021 9:55 AM CDT) Anatomical Region Laterality Modality Chest, Thoracic RST LOS, Thoracic ARZ LOS, Thoracic N/A Digital Radiography FLA LOS Specimen (Source) Anatomical Collection Method Collection Time Re ceived Time Location / / Volume Laterality 12/04/2021 10:17 AM CDT Impressions 12/04/2021 10:18 AM CDT Compared with the 12/03/2021 chest radiograph. Decrease kinking of the right basilar pleural pigtail catheter. Decreased righ t basilar hydropneumothorax. Slightly increased right basilar atelectasis. Calcified tortuous thoracic aorta is again identified. Mildly enlarged cardiac silhouette, improved since previous exam . Spinal degenerative changes to include mild compression fractures. ?? Narrative 12/04/2021 10:18 AM CDT EXAM: ??DX CHEST AP OR PA AND LATERAL 2 VIEWS Procedure Note Emil Gaffney M.D. - 12/04/2021Formattin g of this note might be different from the original. EXAM: DX CHEST AP OR PA AND LATERAL 2 EWS IMPRESSION: Compared with the 12/03/2021 chest radio graph. Decrease kinking of the right basilar pleural pigtail catheter. Decreased righ t basilar hydropneumothorax. Slightly increased right basilar atelectasis. Calcified tortuous thoracic aorta is again identified. Mildly enlarged cardiac silhouette, improved since previous exam . Spinal degenerative changes to include mild compression fractures. Simran Helm P.A.-C., M.S. IMG DIAGNOSTIC IMAGING PROCEDURES US Gallbladder and or Biliary Ducts (12/04/2021 8:29 AM CDT) Anatomical Region Laterality Modality Abdomen, Ultrasound RST LOS, Ultrasound ARZ LOS, Ultrasound FLA N/A Ultrasound LOS Specimen (Source) Anatomical Collection Method Collection Time Re ceived Time Location / / Volume Laterality 12/04/2021 8:53 AM CDT Impressions 12/04/2021 8:55 AM CDT No acute sonographic abnormality identif ied. Narrative 12/04/2021 8:55 AM CDT EXAM: US GALLBLADDER AND OR BILIARY DUCTS COMPARISON: Prior ultrasound dated 06/18 FINDINGS: Gallbladder: Normal. No gallstones. No w all thickening or pericholecystic fluid. ??Negative sonographic Ragland sign. Intrahepatic ducts: Not dilated. Common duct: Not dilated. Aorta: Normal caliber. Procedure Note Aby Parson M.D. - 12/04/2021For matting of this note might be different from the original. EXAM: US GALLBLADDER AND OR BILIARY DUCT S COMPARISON: Prior ultrasound dated 06/18 FINDINGS: Gallbladder: Normal. No gallstones. No w all thickening or pericholecystic fluid. Negative sonographic Ragland sign. Intrahepatic ducts: Not dilated. Common duct: Not dilated. Aorta: Normal caliber. IMPRESSION: No acute sonographic abnormality identif ied. Simran Helm P.A.-C., M.S. IMG US PROCEDURES Amylase, Total (12/04/2021 7:19 AM CDT) athologist Signature Amylase, Total, 86 28 - 100 12/04/2021 DTL S U/L 8:38 AM CDT Specimen Anatomical Collection Method Collection Time Receive d Time (Source) Location / / Volume Laterality Blood (Blood, 12/04/2021 7:19 AM 12/05/19 8:12 Venous) CDT AM CDT Simran Helm P.A.-C., M.S. LAB BLOOD ADD-ON Performing Organization Address City/State/[facility] Code Phon e Number [facility] - [address] [place] [phone] [facility] [place] [address] Laboratories-[facility] [address] [facility] (ABNORMAL) Renal Function Panel (12/04/2021 7:19 AM CDT) athologist Signature Potassium, S 4.1 3.6 - 5.2 12/04/2021 DTL mmol/L 8:38 AM CDT Sodium, S 139 135 - 145 12/04/2021 DTL mmol/L 8:38 AM CDT Chloride, S 101 98 - 107 12/04/2021 DTL mmol/L 8:38 AM CDT Bicarbonate, S 27 22 - 29 12/04/2021 DTL mmol/L 8:38 AM CDT Anion Gap 11 7 - 15 12/04/2021 DTL 8:38 AM CDT BUN (Blood 45 (H) 8 - 24 12/04/2021 DTL Urea mg/dL 8:38 AM CDT Nitrogen), S Creatinine, S 4.11 (H) 0.74 - 12/04/2021 DTL 1.35 mg/dL 8:38 AM CDT eGFR-Non <15 (L) >=60 12/04/2021 DTL Black/ mL/min/BSA 8:38 AM CDT Mal[place]ian Comment: ----ADDITIONAL INFORMATION---- Estimated GFR calculated using the 2009 CKD_EPI creatinine equation. eGFR-Black/ <15 (L) >=60 mL/min/BSA 2021 8:38 AM CDT DTL Comment: ----ADDITIONAL INFORMATION---- Estimated GFR calculated using the 2009 CKD_EPI creatinine equation. Calcium, Total, S 8.4 (L) 8.8 - 10.2 mg/dL 12/04/2021 8:38 AM CDT DTL Glucose, S 103 70 - 140 mg/dL 12/04/2021 8:38 AM CDT D TL Albumin, S 3.1 (L) 3.5 - 5.0 g/dL 12/04/2021 8:38 AM CDT D TL Phosphorus (Inorganic), S 3.9 2.5 - 4.5 mg/dL 12/05/19 8:38 AM CDT DTL Specimen Anatomical Collection Method Collection Time Receive d Time (Source) Location / / Volume Laterality Blood (Blood, 12/04/2021 7:19 AM 12/05/19 8:12 Venous) CDT AM CDT Simran Helm P.A.-C., M.S. LAB BLOOD ADD-ON Performing Organization Address City/State/ZIP Code Phon e Number [facility] - [address] [place] [phone] [facility] [place] [address] Laboratories-[facility] 200 [facility] (ABNORMAL) Prothrombin Time (PT) (12/04/2021 7:19 AM CDT) [facility] gist Method Time Signature Prothrombin 35.4 (H) 9.4 - 12.5 12/04/2021 DTL Time, P sec 9:08 AM CDT INR 3.1 0.9 - 1.1 12/04/2021 DTL 9:08 AM CDT Comment: ----ADDITIONAL INFORMATION---- Standard intensity warfarin therapeutic range: 2.0 to 3.0 ?? High intensity warfarin therapeutic rang e: 2.5 to 3.5 Specimen Anatomical Collection Method Collection Time Receive d Time (Source) Location / / Volume Laterality Blood (Blood, 12/04/2021 7:19 AM 12/05/19 8:03 Venous) CDT AM CDT Simran Helm P.A.-C., M.S. LAB BLOOD ADD-ON Performing Organization Address City/State/ZIP Code Phon e Number [facility] - [address] [place], [place] [address] [facility] [place] [address] Laboratories-[facility] [address] Chest with IV Contrast (12/03/2021 3:36 PM CDT) Anatomical Region Laterality Modality Chest, Thoracic RST LOS, Thoracic ARZ N/A Co mputed Tomography, Computed LOS, Thoracic ARZ LOS, Thoracic FLA Antonio graphy LOS Specimen (Source) Anatomical Collection Method Collection Time Re ceived Time Location / / Volume Laterality 12/03/2021 3:39 PM CDT Impressions 12/03/2021 4:03 PM CDT 1. Placement of right pigtail drainage catheter with reduction in the right hydropneumothorax since 12/01/2021 CT. 2. Moderate pericardial effusion. 3. Patulous esophagus. 4. Enlarged paraesophageal lymph node. F ollow-up imaging may be helpful to ensure resolution. Narrative 12/03/2021 4:03 PM CDT EXAM: CT CHEST WITH IV CONTRAST COMPARISON: Noncontrast CT of the chest 12/01/2021 FINDINGS: Since the prior exam, interval placement of a pigtail pleural drain in the posterior inferior right pleural space. Interval decrease in the right hydropneumothorax which is now small. Subsegmental atelectasis right lung, greatest in the right lower lobe. Mild interstitial prominence in the periphery of the lower lungs may represe nt edema. Lungs are otherwise clear. Moderate pericardial effusion. Arterial calcifications including the coronary arteries. Calcified mitral annulus. Calcifications of the ao rtic valve. Dilated patulous esophagus. Atrophy of the partially visualized kidneys. Enlarged p araesophageal lymph node measures 1.3 cm in short axis on series 4, image 100 and is similar to th e comparison exam. Follow-up imaging may be helpful to ensure resolution. Degenerative changes thoracic spine. Remainder normal. Procedure Note Surya Brown M.D. - 12/03/2021Forma tting of this note might be different from the original. EXAM: CT CHEST WITH IV CONTRAST COMPARISON: Noncontrast CT of the chest 12/01/2021 FINDINGS: Since the prior exam, interval placement of a pigtail pleural drain in the posterior inferior right pleural space. Interval decrease in the right hydropneumothorax which is now small. Subsegmental atelectasis right lung, greatest in the right lower lobe. Mild interstitial prominence in the periphery of the lower lungs may represe nt edema. Lungs are otherwise clear. Moderate pericardial effusion. Arterial calcifications including the coronary arteries. Calcified mitral annulus. Calcifications of the ao rtic valve. Dilated patulous esophagus. Atrophy of the partially visualized kidneys. Enlarged p araesophageal lymph node measures 1.3 cm in short axis on series 4, image 100 and is similar to e comparison exam. Follow-up imaging may be helpful to ensure resolution. Degenerative changes thoracic spine. Remainder normal. IMPRESSION: 1. Placement of right pigtail drainage c atheter with reduction in the right hydropneumothorax since 12/01/2021 CT. 2. Moderate pericardial effusion. 3. Patulous esophagus. 4. Enlarged paraesophageal lymph node. F ollow-up imaging may be helpful to ensure resolution. Simran Helm P.A.-C., M.S. IMG CT PROCEDURES (ABNORMAL) CBC without Differential (12/03/2021 9:26 AM CDT) [facility] Method Time Signature Hemoglobin 10.9 (L) 13.2 - 12/03/2021 DTL 16.6 g/dL 10:12 AM CDT Hematocrit 34.0 (L) 38.3 - 12/03/2021 DTL 48.6 % 10:12 AM CDT Erythrocytes 3.47 (L) 4.35 - 12/03/2021 DTL 5.65 10:12 AM CDT x10(12)/L MCV 98.0 (H) 78.2 - 12/03/2021 DTL 97.9 fL 10:12 AM CDT RBC Distrib Width 12.7 11.8 - 12/03/2021 DTL 14.5 % 10:12 AM CDT Platelet Count 254 135 - 317 12/03/2021 DTL x10(9)/L 10:12 AM CDT Leukocytes 6.1 3.4 - 9.6 12/03/2021 DTL x10(9)/L 10:12 AM CDT Specimen Anatomical Collection Method Collection Time Receive d Time (Source) Location / / Volume Laterality Blood (Blood, 12/03/2021 9:26 AM 12/04/19 22 Venous) CDT 10:03 AM CDT Simran Helm P.A.-C., M.S. LAB BLOOD ADD-ON Performing Organization Address City/State/[facility] Code Phon e Number [facility] - [address] [place], [place] [address] [facility] [place] [address] Laboratories-[facility] [address] [facility] (ABNORMAL) Electrophoresis, Protein (12/03/2021 8:21 AM CDT) [facility] Method Time Signature Total Protein, 5.8 (L) 6.3 - 7.9 12/03/2021 SDSC S g/dL 11:11 AM CDT Albumin 2.3 (L) 3.4 - 4.7 12/03/2021 SDSC g/dL 3:10 PM CDT Alpha-1 0.3 0.1 - 0.3 12/03/2021 SDSC Globulin g/dL 3:10 PM CDT Alpha-2 0.9 0.6 - 1.0 12/03/2021 SDSC Globulin g/dL 3:10 PM CDT Beta-Globulin 1.1 0.7 - 1.2 12/03/2021 SDSC g/dL 3:10 PM CDT Gamma-Globulin 1.3 0.6 - 1.6 12/03/2021 SDSC g/dL 3:10 PM CDT A/G Ratio 0.65 12/03/2021 SDSC 3:10 PM CDT Impression No apparent 12/03/2021 SDSC monoclonal 3:10 PM CDT protein on serum electrophoresi s. Specimen Anatomical Collection Method Collection Time Receive d Time (Source) Location / / Volume Laterality Blood (Blood, 12/03/2021 8:21 AM 12/04/19 22 Venous) CDT 10:53 AM CDT Simran Helm P.A.-C., M.S. LAB BLOOD ADD-ON Performing Organization Address City/State/ZIP Code Phon e Number [facility] [address] [place], [place] [address] [address] [facility] [place] [address] Laboratory Medicine and Pathology [address] [place] (ABNORMAL) Basic Metabolic Panel (12/03/2021 8:21 AM CDT) P athologist Signature Potassium, S 3.9 3.6 - 5.2 12/03/2021 DTL mmol/L 9:32 AM CDT Sodium, S 140 135 - 145 12/03/2021 DTL mmol/L 9:32 AM CDT Chloride, S 101 98 - 107 12/03/2021 DTL mmol/L 9:32 AM CDT Bicarbonate, S 27 22 - 29 12/03/2021 DTL mmol/L 9:32 AM CDT Anion Gap 12 7 - 15 12/03/2021 DTL 9:32 AM CDT BUN (Blood 50 (H) 8 - 24 12/03/2021 DTL Urea mg/dL 9:32 AM CDT Nitrogen), S Creatinine, S 4.09 (H) 0.74 - 12/03/2021 DTL 1.35 mg/dL 9:32 AM CDT eGFR-Non <15 (L) >=60 12/03/2021 DTL Black/ mL/min/BSA 9:32 AM CDT [place] Comment: ----ADDITIONAL INFORMATION---- Estimated GFR calculated using the 2009 CKD_EPI creatinine equation. eGFR-Black/ <15 (L) >=60 mL/min/BSA 2021 9:32 AM CDT DTL Comment: ----ADDITIONAL INFORMATION---- Estimated GFR calculated using the 2009 CKD_EPI creatinine equation. Calcium, Total, S 8.5 (L) 8.8 - 10.2 mg/dL 12/03/2021 9:32 AM CDT DTL Glucose, S 120 70 - 140 mg/dL 12/03/2021 9:32 AM CDT D TL Specimen Anatomical Collection Method Collection Time Receive d Time (Source) Location / / Volume Laterality Blood (Blood, 12/03/2021 8:21 AM 12/04/19 9:12 Venous) CDT AM CDT Simran Helm P.A.-C., MBaileyS. LAB BLOOD ADD-ON Performing Organization Address City/State/ZIP Code Phon e Number [facility] - [address] [place], [place] [address] [facility] [place] [address] Laboratories-[facility] [address] [facility] (ABNORMAL) CBC with Differential, Blood (12/03/2021 8:21 AM CDT) [facility] Method Time Signature Hemoglobin 10.2 (L) 13.2 - 12/03/2021 DTL 16.6 g/dL 9:04 AM CDT Hematocrit 32.5 (L) 38.3 - 12/03/2021 DTL 48.6 % 9:04 AM CDT Erythrocytes 3.29 (L) 4.35 - 12/03/2021 DTL 5.65 9:04 AM CDT x10(12)/L MCV 98.8 (H) 78.2 - 12/03/2021 DTL 97.9 fL 9:04 AM CDT RBC Distrib Width 12.7 11.8 - 12/03/2021 DTL 14.5 % 9:04 AM CDT Platelet Count 233 135 - 317 12/03/2021 DTL x10(9)/L 9:04 AM CDT Leukocytes 5.3 3.4 - 9.6 12/03/2021 DTL x10(9)/L 9:04 AM CDT Neutrophils 3.72 1.56 - 12/03/2021 DTL 6.45 9:04 AM CDT x10(9)/L Lymphocytes 0.67 (L) 0.95 - 12/03/2021 DTL 3.07 9:04 AM CDT x10(9)/L Monocytes 0.58 0.26 - 12/03/2021 DTL 0.81 9:04 AM CDT x10(9)/L Eosinophils 0.31 0.03 - 12/03/2021 DTL 0.48 9:04 AM CDT x10(9)/L Basophils 0.03 0.01 - 12/03/2021 DTL 0.08 9:04 AM CDT x10(9)/L Specimen Anatomical Collection Method Collection Time Receive d Time (Source) Location / / Volume Laterality Blood (Blood, 12/03/2021 8:21 AM 12/04/19 8:53 Venous) CDT AM CDT Simran Helm P.A.-C., M.S. LAB BLOOD ADD-ON Performing Organization Address City/[facility]/ZIP Code Phon e Number [facility] - [address] [place], [place] [address] [place] [address] Laboratories-[facility] [address] [facility] (ABNORMAL) Prothrombin Time (PT) (12/03/2021 8:21 AM CDT) [facility] gist Method Time Signature Prothrombin 40.5 (H) 9.4 - 12.5 12/03/2021 DTL Time, P sec 9:17 AM CDT INR 3.6 0.9 - 1.1 12/03/2021 DT 9:17 AM CDT Comment: ----ADDITIONAL INFORMATION---- Standard intensity warfarin therapeutic range: 2.0 to 3.0 ?? High intensity warfarin therapeutic rang e: 2.5 to 3.5 Specimen Anatomical Collection Method Collection Time Receive d Time (Source) Location / / Volume Laterality Blood (Blood, 12/03/2021 8:21 AM 12/04/19 8:54 Venous) CDT AM CDT Simran Helm P.A.-C., M.S. LAB BLOOD ADD-ON Performing Organization Address City/[facility] Code Phon e Number [facility] - [address] [place] [phone] [place] [address] [facility]-[address] DX Chest Portable 1 View (12/03/2021 7:47 AM CDT) Anatomical Region Laterality Modality Chest, Thoracic RST LOS, Thoracic ARZ LOS, Thoracic N/A Digital Radiography FLA LOS Specimen (Source) Anatomical Collection Method Collection Time Re ceived Time Location / / Volume Laterality 12/03/2021 7:54 AM CDT Impressions 12/03/2021 8:03 AM CDT No substantial change since 2021. Right basilar pigtail drainage catheter. Small persistent basilar hydropneumothorax. Tr martín left effusion/pleural thickening. Bibasilar atelectasis. Enlarged cardiac silhouette. Pulmonary v asculature upper limits normal. Mitral annulus calcification. Narrative 12/03/2021 8:03 AM CDT EXAM: ??DX CHEST PORTABLE 1 VIEW Procedure Note Emil Gaffney M.D. - 12/03/2021Formattin g of this note might be different from the original. EXAM: DX CHEST PORTABLE 1 VIEW IMPRESSION: No substantial change since 2021. Right basilar pigtail drainage catheter. Small persistent basilar hydropneumothorax. Tr martín left effusion/pleural thickening. Bibasilar atelectasis. Enlarged cardiac silhouette. Pulmonary v asculature upper limits normal. Mitral annulus calcification. Jaqueline Moseley M.D. IMG DIAGNOSTIC IMAGING RI OCEDURES DX Chest Portable 1 View (2021 8:23 PM CDT) Anatomical Region Laterality Modality Chest, Thoracic RST LOS, Thoracic ARZ LOS, Thoracic N/A Digital Radiography FLA LOS Specimen (Source) Anatomical Collection Method Collection Time Re ceived Time Location / / Volume Laterality 2021 8:32 PM CDT Impressions 2021 8:35 PM CDT Since 12/01/2021, new right-sided pleural pigtail catheter with decrease in hydropneumothorax. Decreased right lung atelectasis. No other significant change. Pulmonary vascular congestion. Enlarged cardiac silhouette. Mitral annular calcifications. The pericardial effusion seen on CT 12/01/2021 is not appreciated on this single view. Narrative 2021 8:35 PM CDT EXAM: ??DX CHEST PORTABLE 1 VIEW Procedure Note Orestes Prakash M.D., M.S. - 2021F ormatting of this note might be different from the original. EXAM: DX CHEST PORTABLE 1 VIEW IMPRESSION: Since 12/01/2021, new right-sided pleural pigtail catheter with decrease in hydropneumothorax. Decreased right lung atelectasis. No other significant change. Pulmonary vascular congestion. Enlarged cardiac silhouette. Mitral annular calcifications. The pericardial effusion seen on CT 12/01/2021 is not appreciated on this single view. Jaqueline Moseley M.D. IMG DIAGNOSTIC IMAGING RI OCEDURES RI PLEURA DRAIN PERC W IMG GUID (2021 6:25 PM CDT) Narrative Cj Jimenez M.D. - 2021 6:25 P M CDT Jaqueline Fontanez M.D. ? 2021 ??6:27 PM Pleural Drains Date/Time: 2021 6:25 PM Performed by: Jaqueline Fontanez M.D. Authorized by: Jaqueline Fontanez M.D. Care team members present 1. Cj Jimenez M.D. PROCEDURE DETAILS Needle decompression: no Placement location: right posterior Intercostal space: 9th Tube type: pigtail Insertion of wire with dilators: yes Tube size (Fr): 12 Locking loop: yes Tube connected to drainage device at: -2 0 suction Drainage characteristics: serosanguinous Ultrasound image guidance used to locali ze target, identify at risk structures, and dynamically used to dire ct therapy to the target. Image(s) acquired and saved. Additional procedure details: Patient to lerated procedure well. Upon starting suction, there was an air leak along with serosanguinous output. CONSENT Consent obtained: written [employer] All relevant documentation and testing [...] and confirmed in a procedu ral pause. PRE-PROCEDURE DETAILS Indications: pneumothorax Appropriate hand hygiene, gown, cap, mas k, protective eyewear, sterile gloves, skin preparation, sterile drape, and strict aseptic technique were utilized as applicable for the procedure . Site preparation: chlorhexidine SEDATION / ANESTHESIA Anesthesia method: local infiltration Local infiltrate type: lidocaine POST-PROCEDURE DETAILS Post-insertion x-ray performed: yes X-ray findings: pending Procedure successful: yes Complications: no apparent complications ATTESTATION STATEMENT A resident or fellow participated in the procedure, and the financial analysis consultant was present for the entire procedure. Jaqueline Moseley M.D. PROCEDURE/MINOR SURGICAL ORDERABLES Amylase, Body Fluid (2021 10:04 AM CDT) P athologist Signature Amylase, BF 59 See Comment 2021 DTL U/L 12:00 PM CDT Comment: ----ADDITIONAL INFORMATION---- Peritoneal and Drain fluid amylase activ ity in non-pancreatic peritoneal fluid is often less than or equal to the serum amylase activity. Ascites a ssociated with pancreatitis typically has amylase activ ity at least 5-fold greater than serum. Normal pleural fluid amylase activity is typically less than the upper limit of normal serum amylase and has a ratio of pleural fluid amylase to serum amylase r atio <1.0. All other fluids refer to [email or web address] for further inter pretive information. This test has been modified from the man sarah bethr's instructions. Its performance characteri stics were determined by [facility] in a manner consistent wi CLIA requirements. This test has not been cleared or approv ed by the U.S. Food and Drug Administration. Fluid Type, Amylase PLEURAL 2021 11:27 AM CDT DTL Specimen Anatomical Collection Method Collection Time Receive d Time (Source) Location / / Volume Laterality Fluid (Pleural 2021 10:04 2 Fluid, Right) AM CDT 11:27 AM CDT Max Royal M.D. LAB BODY FLUIDS AND STOOLS O RDERABLES Performing Organization Address City/State/[facility] Code Phon e Number [facility] - [address] [place], [place] [address] [facility] [place] [address] Laboratories-[facility] [address] RI THORACENTESIS PLEURA W IMG (2021 9:47 AM CDT) Narrative Cj Jimenez M.D. - 2021 9:47 A M CDT Jaqueline Fontanez M.D. ? 2021 ??9:49 AM Thoracentesis Date/Time: 2021 9:47 AM Performed by: Jaqueline Fontanez M.D. Authorized by: Jaqueline Fontanez M.D. Care team members present 1. Cj Jimenez M.D. PROCEDURE DETAILS Patient position: sitting Location: right posterior Intercostal space: 9th Puncture method: [id number] cathete r Number of attempts: 1 Drainage characteristics: serosanguinous and cloudy Estimated amount of fluid removed (ml): 275 Ultrasound image guidance used to locali ze target, identify at risk structures, and dynamically used to dire ct therapy to the target. Image(s) acquired and saved. Additional procedure details: The proced ure was terminated due to sufficient sample obtained. Fluid was se rosanguinous and air was also evacuated. ??Post-procedure ultrasound s howed minimal residual fluid. CONSENT Consent obtained: written [employer] All relevant documentation and testing [...] and confirmed in a procedu ral pause. PRE-PROCEDURE DETAILS Procedure purpose: diagnostic and therap eutic Indications: benign pleural effusion Appropriate hand hygiene, gown, cap, mas k, protective eyewear, sterile gloves, skin preparation, sterile drape, and strict aseptic technique were utilized as applicable for the procedure . Site preparation: chlorhexidine SEDATION / ANESTHESIA Anesthesia method: local infiltration Local infiltrate type: lidocaine POST-PROCEDURE DETAILS Post-procedure chest x-ray performed: no Procedure successful: yes Complications: no apparent complications ATTESTATION STATEMENT A resident or fellow participated in the procedure, and the financial analysis consultant was present for the entire procedure. Jaqueline Moseley M.D. PROCEDURE/MINOR SURGICAL ORDERABLES Broad Range Bacteria PCR+Sequencing (2021 9:36 AM CDT) Component Value Ref Test Analysis Performed At [facility] Range Method Time Signature Broad Range No bacterial DNA detected. 12/07/2021 DTL Bacteria This test was developed and its performance characteri stics 2:15 PM CDT PCR+Sequencin determined by [facility] in a manner consistent with g CLIA requirements. This test has not been cleared or approved by the U.S. Food and Drug Administration. Specimen Anatomical Collection Method Collection Time Receive d Time (Source) Location / / Volume Laterality Pleural Fluid, 2021 9:36 AM 022 Right CDT 11:28 AM CDT Comment: Specimen Source Site: Fluid Narrative [facility] - [facility] - 12/07/2021 2:15 PM CDT Bacterial Culture: Received Bactec aerob ic and Bactec anaerobic bottles Cj Jimenez M.D. LAB MICROBIOLOGY - GENERAL O RDERABLES Performing Organization Address City/[facility] Phon e Number [facility] - [address] [place] [address] [address] [place] [address] Laboratories-[facility] 200 [facility] Glucose, Body Fluid (2021 9:36 AM CDT) P athologist Signature Glucose, BF 46 See Comment 12/03/2021 DTL mg/dL 12:54 PM CDT Comment: ----ADDITIONAL INFORMATION---- Body fluid glucose concentrations may be decreased due to increased cellular metabolism and should be interpreted in the context of blood glucose concentrati ons and in conjunction with other laboratory and cl inical findings. Pleural, Peritoneal, and Pericardial flu id and serum glucose concentrations are similar in th e absence of infection. Synovial fluid glucose concentrations ar e similar to fasting blood glucose concentrations or approximately 50% of the non-fasting serum glucose concent ration under normal conditions. Values below this can be see n with infection. Amniotic fluid glucose <16 mg/dL is sugg estive of infection. All other fluids refer to www.[facility].com for further inter pretive information. This test has been modified from the man sarah bethr's instructions. Its performance characteri stics were determined by [facility] in a manner co nsistent with CLIA requirements. This test has not been willian ared or approved by the U.S. Food and Drug Administration. Fluid Type, Glucose Fluid, Pleural Fluid, Right 11:09 AM CDT DTL Specimen Anatomical Collection Method Collection Time Receive d Time (Source) Location / / Volume Laterality Fluid (Pleural 2021 9:36 AM 022 Fluid, Right) CDT 12:24 PM CDT Cj Jimenez M.D. LAB BODY FLUIDS AND STOOLS O RDERABLES Performing Organization Address City/[facility] Phon e Number [facility] - [address] [place], [place] [address] [place] [address] [facility] [address] [facility] pH, Pleural Fluid (2021 9:36 AM CDT) [facility] Method Time Signature pH, Pleural 7.27 Not Applicable 2021 [facility] [[email or web address]] Fluid pH 9:59 AM CDT Comment: Clinical guidelines suggest that in para pneumonic pleural effusions, a pH <7.2 indicate the need for tube drainage . Specimen Anatomical Collection Method Collection Time Receive d Time (Source) Location / / Volume Laterality Fluid (Pleural 2021 9:36 AM 022 9:56 Fluid, Right) CDT AM CDT Cj Jimenez M.D. LAB BODY FLUIDS AND STOOLS O [place] Performing Organization Address City/State/ZIP Code Phon e Number [facility] - [address] [place], [place] [address] [place] [address] [facility] [address] Fungal Culture, Routine (2021 9:36 AM CDT) [facility] Method Time Signature Fungal No growth 12/26/2021 DTL Culture, after 24 1:01 PM CDT Routine days of incubation. Specimen Anatomical Collection Method Collection Time Receive d Time (Source) Location / / Volume Laterality Fluid (Pleural 2021 9:36 AM 022 Fluid, Right) CDT 11:28 AM CDT Comment: Specimen Source Site: Fluid Narrative [facility] - 12/26/2021 1:01 PM CDT Bacterial Culture: Received Bactec aerob ic and Bactec anaerobic bottles Cj Jimenez M.D. LAB MICROBIOLOGY - GENERAL O [place] Performing Organization Address City/State/ZIP Code Phon e Number [facility] - [address] [place], [place] [address] [place] [address] [facility] [address] [facility] Fungal Smear (2021 9:36 AM CDT) athologist Signature Fungal Smear Negative. 2021 DTL 1:56 PM CDT Specimen Anatomical Collection Method Collection Time Receive d Time (Source) Location / / Volume Laterality Fluid (Pleural 2021 9:36 AM 022 Fluid, Right) CDT 11:28 AM CDT Comment: Specimen Source Site: Fluid Narrative [facility] - [facility] - 2021 1:56 PM CDT Bacterial Culture: Received Bactec aerob ic and Bactec anaerobic bottles Cj Jimenez M.D. LAB MICROBIOLOGY - GENERAL O RDERABLES Performing Organization Address City/[facility] Code Phon e Number [facility] - [address] [place], [place] [address] [place] [address] [place], [place] [id number] [place] [address] Cytology Non-SPINDLE CARVER (2021 9:36 AM CDT) Component Value Ref Test Analysis Performed At [facility] gist Range Method Time Signature 12/03/2021 DTL 2:15 PM CDT Report Shea Ozuna M.D., Ph.D. 12/03/2021 DTL electronically 2:15 PM CDT signed by I verify that I have examined all relevant slides/materials for the specimen(s) and rendered or confirmed the diagnosis. Gross Description Received 250 12/03/2021 DTL cc of bloody 2:15 PM CDT fluid. Source A. Pleural, 12/03/2021 DTL Right, fluid 2:15 PM CDT Interpretation A. Pleural, Right, fluid (ThinPrep): Negative for 12/03/2021 DTL malignancy. Reactive mesothelial cells present. 2:15 PM CDT Specimen Anatomical Collection Method Collection Time Receive d Time (Source) Location / / Volume Laterality Varies (Pleural 2021 9:36 AM 2021 Fluid, Right) CDT 11:33 AM CDT Narrative This result has an attachment that is no t available. Cj Jimenez M.D. LAB SURG PATH ORDERABLES Performing Organization Address City/[facility] Code Phon e Number [facility] - [address] [place], [place] [address] [facility] [place], [place] [address] [place] [address] [address] [facility] Cell Count and Differential, Body Fluid (2021 9:36 AM CDT) [facility] Method Time Signature Fluid Type Right 2021 [facility] Pleural-Tho 12:45 PM CDT racentesis Gross Bloody 2021 [facility] Appearance 12:45 PM CDT Total Nucleated 1976 /mcL 2021 [facility] Cells 12:45 PM CDT Comment: ----REFERENCE VALUE---- Synovial: <150 /mcL Peritoneal: <500 /mcL Pleural: <500 /mcL Pericardial: <500 /mcL ----ADDITIONAL INFORMATION---- This test has been modified from the man ufacturer's instructions. Its performance characteri stics were determined by [facility] in a manner co nsistent with CLIA requirements. This test has not bee n cleared or approved by the U.S. Food and Drug Admin istration. Neutrophils 2 % 2021 12:45 PM CDT [facility] Comment: ----REFERENCE VALUE---- Synovial: <25% Peritoneal: <25% Pleural: <25% Pericardial: <25% Lymphocytes 78 Synovial <75% % 2021 12:45 PM CD T [facility] Monocytes/Macrophages 20 Synovial <70% % 2021 1 2:45 PM CDT PM Comment SeeComment 2021 12:45 PM CDT PM Comment: Cytology concurrently ordered; see separate report. Reviewed by: Tech 2021 12:45 PM CDT [facility]HP M Specimen Anatomical Collection Method Collection Time Receive d Time (Source) Location / / Volume Laterality Fluid (Pleural 2021 9:36 AM 022 Fluid, Right) CDT 11:25 AM CDT Cj Jimenez M.D. LAB BODY FLUIDS AND STOOLS O RDERABLES Performing Organization Address City/State/ZIP Code Phon e Number [facility] - [address] [place], [place] [address] [place] [address] [facility] [address] Bacterial Culture, Aerobic + Susc (2021 9:36 AM CDT) [facility] Method Time Signature Bacterial No growth 12/07/2021 DTL Culture, after 5 8:50 AM CDT Aerobic + Susc days of incubation. Specimen Anatomical Collection Method Collection Time Receive d Time (Source) Location / / Volume Laterality Fluid (Pleural 2021 9:36 AM 022 Fluid, Right) CDT 11:28 AM CDT Comment: Specimen Source Site: Fluid Narrative [facility] - 12/07/2021 8:50 AM CDT Bacterial Culture: Received Bactec aerob ic and Bactec anaerobic bottles Cj Jimenez M.D. LAB MICROBIOLOGY - GENERAL O [place] Performing Organization Address City/[facility] Phon e Number [facility] - [address] [place], [place] [address] [facility] [place] [address] Gram Stain (2021 9:36 AM CDT) Patholo gist Method Time Signature Gram Stain No organisms seen. 2021 DTL White blood cells present. 12:20 PM CDT Specimen Anatomical Collection Method Collection Time Receive d Time (Source) Location / / Volume Laterality Fluid (Pleural 2021 9:36 AM 022 Fluid, Right) CDT 11:28 AM CDT Comment: Specimen Source Site: Fluid Narrative [facility] - 2021 12:20 PM CDT Bacterial Culture: Received Bactec aerob ic and Bactec anaerobic bottles Cj Jimenez M.D. LAB MICROBIOLOGY - GENERAL O [place] Performing Organization Address City/[facility]/ZIP Code Phon e Number [facility] - [address] [place], [place] [address] [facility] [place], [place] [id number] [place] [address] Protein, Total, Body Fluid (2021 9:36 AM CDT) P athologist Signature Protein, 3.2 See Comment 12/03/2021 DTL Total, BF g/dL 12:54 PM CDT Comment: ----ADDITIONAL INFORMATION---- A pleural fluid total protein to serum t otal protein ratio >0.5 is most consistent wi th exudative effusion. A peritoneal fluid t otal protein > 2.5 g/dL in patients with a hi gh serum ascites albumin gradient can be caused b y heart failure. A peritoneal fluid total protei n > 1.0 g/dL helps to differentiate secondary fr om spontaneous bacterial peritonitis in con junction with other laboratory, imaging, and clin ical findings. All other fluids refer to www.[employer] for further inter pretive information. This test has been modified from the embossing calender operator's instructions. Its perform ance characteristics were determined by [facility] in a manner consistent with CLIA require ments. This test has not been cleared or approv ed by the U.S. Food and Drug Administration. Fluid Type, Protein, Total Fluid, Pleural Fluid, 0 2021 11:09 AM CDT DTL Right Specimen Anatomical Collection Method Collection Time Receive d Time (Source) Location / / Volume Laterality Fluid (Pleural 2021 9:36 AM 022 Fluid, Right) CDT 12:24 PM CDT Cj Jimenez M.D. LAB BODY FLUIDS AND STOOLS O RDERABLES Performing Organization Address City/State/ZIP Code Phon e Number [facility] - [address] [place], [place] [address] [facility] [place] [address] Laboratories-[facility] [address] Lactate Dehydrogenase (LD), Body Fluid (2021 9:36 AM CDT) [facility] Method Time Signature Lactate 343 See Comment 12/03/2021 DTL Dehydrogenase U/L 12:54 PM CDT (LD), BF Comment: ----ADDITIONAL INFORMATION---- Pleural fluid lactate dehydrogenase (LDH ) to serum LDH ratio >0.6 are most consistent with exudative effus ions. Peritoneal fluid LDH > 220 U/L suggest s econdary rather than spontaneous bacterial peritonitis in con junction with other laboratory, imaging, and clinical findin gs. Synovial fluid lactate dehydrogenase (LD H) may be elevated greater than plasma or serum LDH due to inflamma tory causes. Values should be interpreted in conjunction with other clinical findings. All other fluids refer to www.[employer] for further interpretive information. This test has been modified from the man ufacturer's instructions. Its performance characteristics were det ermined by [facility] in a manner consistent with CLIA requirements . This test has not been cleared or approved by the U.S. Food and Drug Administration. Fluid Type, Lactate Fluid, Pleural Fluid, 12/03/19 11:09 AM CDT DTL Dehydrogenase Right Specimen Anatomical Collection Method Collection Time Receive d Time (Source) Location / / Volume Laterality Fluid (Pleural 2021 9:36 AM 022 Fluid, Right) CDT 12:24 PM CDT Cj Jimenez M.D. LAB BODY FLUIDS AND STOOLS O RDERABLES Performing Organization Address City/State/ZIP Code Phon e Number [facility] - [address] [place], [place] [address] [facility] [place] [address] [facility] [address] Interpretation of Outside DX Chest (2021 2:07 [...] Eso phageal hiatal hernia. Jamal Andujar APRN, CBaileyNCherelle. [facility] PROC ED[facility] Interpretation of Outside CT Chest (2021 2:01 AM CDT) Anatomical Region Laterality Modality Chest, Thoracic RST LOS, Thoracic ARZ LOS, Thoracic N/A Computed Tomography FLA LOS, Other, Body Specimen (Source) Anatomical Collection Method Collection Time Re ceived Time Location / / Volume Laterality 2021 2:13 AM CDT Impressions 2021 5:20 AM CDT 1. Complex moderate hydropneumothorax with internal septations/pleural thickening suspicious for infection/empyema. There are a few mildl y dilated bronchi in the right lower lobe. None are definitively seen extending to the parie mary beth pleural surface, but these images are 3 mm thick - if there is clinical concern for a bronchop leural fistula, a CT could be repeated to obtain sub-millimeter slices. 2. Consolidation with air bronchograms i n the right lower lobe, likely a combination of atelectasis and/or pneumonia. 3. Dilated fluid-filled esophagus second alla to achalasia. The fluid within the esophagus extends to the thoracic inlet which creates a high risk of aspiration. 4. Moderate pericardial effusion. 5. Bilateral renal atrophy with non-obst ructive stones. Narrative 2021 5:20 AM CDT EXAM: ??INTERPRETATION OF OUTSIDE CT CHEST COMPARISON: ??Chest radiograph 9, 12/01/2021 FINDINGS: ?? Complex moderate right hydropneumothorax with internal septations/pleural thickening and loculated pleural fluid with scattered locules of gas predominantly in the right lower chest. Consolidation in the right lower lobe with air bronchogra ms which may be related to atelectasis and/or pneumonia. There are a few mildly dilated bronchi i n the right lower lobe. None are definitively seen extending to the parietal pleural surface, but the se images are 3 mm thick - if there is clinical concern for a bronchopleural fistula, a CT could be repeated to obtain sub-millimeter slices. Pulmonary edema in the left lower lung. Dilated fluid-filled esophagus up to the thoracic inlet secondary to achalasia. The fluid within the esophagus creates a significant risk for aspiration. Severe coronary artery calcifications. S cattered atherosclerotic calcifications. Aortic valve and mitral annulus calcifications. Small per icardial effusion. Cardiomegaly. Bilateral renal atrophy with non-obstructive stones. Bilateral gynecomastia. Procedure Note Lizz Virk M.D. - 2021Formatt ing of this note might be different from the original. EXAM: INTERPRETATION OF OUTSIDE CT CHEST COMPARISON: Chest radiograph 02/14/2019, 12/01/2021 FINDINGS: Complex moderate right hydropneumothorax with internal septations/pleural thickening and loculated pleural fluid with scattered locules of gas predominantly in the right lower chest. Consolidation in the right lower lobe with air bronchogra ms which may be related to atelectasis and/or pneumonia. There are a few mildly dilated bronchi i n the right lower lobe. None are definitively seen extending to the parietal pleural surface, but the se images are 3 mm thick - if there is clinical concern for a bronchopleural fistula, a CT could be repeated to obtain sub-millimeter slices. Pulmonary edema in the left lower lung. Dilated fluid-filled esophagus up to the thoracic inlet secondary to achalasia. The fluid within the esophagus creates a significant risk for aspiration. Severe coronary artery calcifications. S cattered atherosclerotic calcifications. Aortic valve and mitral annulus calcifications. Small per icardial effusion. Cardiomegaly. Bilateral renal atrophy with non-obstructive stones. Bilateral gynecomastia. IMPRESSION: 1. Complex moderate hydropneumothorax wi th internal septations/pleural thickening suspicious for infection/empyema. There are a few mildl y dilated bronchi in the right lower lobe. None are definitively seen extending to the parie mary beth pleural surface, but these images are 3 mm thick - if there is clinical concern for a bronchop leural fistula, a CT could be repeated to obtain sub-millimeter slices. 2. Consolidation with air bronchograms i n the right lower lobe, likely a combination of atelectasis and/or pneumonia. 3. Dilated fluid-filled esophagus second alla to achalasia. The fluid within the esophagus extends to the thoracic inlet which creates a high risk of aspiration. 4. Moderate pericardial effusion. 5. Bilateral renal atrophy with non-obst ructive stones. Natalie Strong APRNN.P. IMG CT PROCEDURES (ABNORMAL) Prothrombin Time (PT) (2021 1:01 AM CDT) Patholo gist Method Time Signature Prothrombin 33.3 (H) 9.4 - 12.5 2021 [facility] Time, P sec 1:15 AM CDT INR 3.0 0.9 - 1.1 2021 [facility] 1:15 AM CDT Comment: ----ADDITIONAL INFORMATION---- Standard intensity warfarin therapeutic range: 2.0 to 3.0 ?? High intensity warfarin therapeutic rang e: 2.5 to 3.5 Specimen Anatomical Collection Method Collection Time Receive d Time (Source) Location / / Volume Laterality Blood (Blood, 2021 1:01 AM 12/03/19 1:09 Venous) CDT AM CDT Jamal Andujar APRN, Pablo.N.P. LAB BLOOD ADD-ON Performing Organization Address City/State/[facility] Code Phon e Number [facility] - [address] [place] [address] [facility] [address] (ABNORMAL) Procalcitonin (2021 1:01 AM CDT) athologist Signature Procalcitonin, 0.18 (H) <=0.08 2021 DTL S ng/mL 2:04 AM CDT Specimen Anatomical Collection Method Collection Time Receive d Time (Source) Location / / Volume Laterality Blood (Blood, 2021 1:01 AM 12/03/19 1:35 Venous) CDT AM CDT Jamal Andujar APRN, Pablo.N.P. LAB BLOOD ADD-ON Performing Organization Address City/[facility] Code Phon e Number [facility] - [address] [place], [place] [address] [facility] [address] [facility] [address] Lactate (2021 1:01 AM CDT) athologist Signature Lactate, P 1.1 0.5 - 2.2 2021 DTL mmol/L 1:48 AM CDT Specimen Anatomical Collection Method Collection Time Receive d Time (Source) Location / / Volume Laterality Blood (Blood, 2021 1:01 AM 12/03/19 1:35 Venous) CDT AM CDT Jamal Andujar APRN, Pablo.N.P. LAB BLOOD NON ADD-ON Performing Organization Address City/State/[facility] Code Phon e Number [facility] - [address] [place], [place] [address] [place] [address] [facility] Phosphorus Inorganic (2021 1:01 AM CDT) athologist Signature Phosphorus 3.8 2.5 - 4.5 2021 DTL (Inorganic), S mg/dL 2:04 AM CDT Specimen Anatomical Collection Method Collection Time Receive d Time (Source) Location / / Volume Laterality Blood (Blood, 2021 1:01 AM 12/03/19 1:35 Venous) CDT AM CDT Jamal Andujar APRN, Pablo.N.P. LAB BLOOD ADD-ON Performing Organization Address City/[facility]/ZIP Code Phon e Number [facility] - [address] [place], [place] [address] [place] [address] [place], [place] [phone] [place] [address] [address] [facility] Magnesium (2021 1:01 AM CDT) athologist Signature Magnesium, S 1.8 1.7 - 2.3 2021 DTL mg/dL 2:04 AM CDT Specimen Anatomical Collection Method Collection Time Receive d Time (Source) Location / / Volume Laterality Blood (Blood, 2021 1:01 AM 12/03/19 1:35 Venous) CDT AM CDT Jamal Andujar APRN, C.N.P. LAB BLOOD ADD-ON Performing Organization Address City/State/ZIP Code Phon e Number [facility] - [address] [place], [place] [address] [facility] [place] [address] [facility] [address] (ABNORMAL) Comprehensive Metabolic Panel (2021 1:01 AM CDT) P athologist Signature Potassium, S 3.2 (L) 3.6 - 5.2 2021 DTL mmol/L 1:58 AM CDT Sodium, S 140 135 - 145 2021 DTL mmol/L 1:58 AM CDT Chloride, S 101 98 - 107 2021 DTL mmol/L 1:58 AM CDT Bicarbonate, S 25 22 - 29 2021 DTL mmol/L 1:58 AM CDT Anion Gap 14 7 - 15 2021 DTL 1:58 AM CDT BUN (Blood 51 (H) 8 - 24 2021 DTL Urea mg/dL 1:58 AM CDT Nitrogen), S Creatinine, S 3.66 (H) 0.74 - 2021 DTL 1.35 mg/dL 1:58 AM CDT eGFR-Non <15 (L) >=60 2021 DTL Black/ mL/min/BSA 1:58 AM CDT [place] Comment: ----ADDITIONAL INFORMATION---- Estimated GFR calculated using the 2009 CKD_EPI creatinine equation. eGFR-Black/ 17 (L) >=60 mL/min/BSA 2021 1:58 AM CDT DTL Comment: ----ADDITIONAL INFORMATION---- Estimated GFR calculated using the 2009 CKD_EPI creatinine equation. Calcium, Total, S 8.2 (L) 8.8 - 10.2 mg/dL 2021 1:58 AM CDT DTL Glucose, S 101 70 - 140 mg/dL 2021 1:58 AM CDT D TL Protein, Total, S 5.7 (L) 6.3 - 7.9 g/dL 2021 1:58 A M CDT DTL Albumin, S 2.7 (L) 3.5 - 5.0 g/dL 2021 1:58 AM CDT D TL Aspartate Aminotransferase 19 8 - 48 U/L 2021 1 :58 AM CDT DTL (AST), S Alkaline Phosphatase, S 406 (H) 40 - 129 U/L 2021 1: 58 AM CDT DTL Alanine Aminotransferase 11 7 - 55 U/L 2021 1:5 8 AM CDT DTL (ALT), S Bilirubin, Total, S 0.4 <=1.2 mg/dL 2021 1:58 AM CDT DTL Specimen Anatomical Collection Method Collection Time Receive d Time (Source) Location / / Volume Laterality Blood (Blood, 2021 1:01 AM 12/03/19 1:37 Venous) CDT AM CDT Jamal Andujar APRN C.N.P. LAB BLOOD ADD-ON Performing Organization Address City/State/[facility] Code Phon e Number [facility] - [address] [place], [place] [address] [facility] [place] [address] [facility] [address] [facility] (ABNORMAL) CBC with Differential, Blood (2021 1:01 AM CDT) [facility] gist Method Time Signature Hemoglobin 10.1 (L) 13.2 - 2021 [facility] 16.6 g/dL 1:11 AM CDT Hematocrit 31.6 (L) 38.3 - 2021 [facility] 48.6 % 1:11 AM CDT Erythrocytes 3.18 (L) 4.35 - 2021 [facility] 5.65 1:11 AM CDT x10(12)/L MCV 99.4 (H) 78.2 - 2021 [facility] 97.9 fL 1:11 AM CDT RBC Distrib Width 12.5 11.8 - 2021 [facility] 14.5 % 1:11 AM CDT Platelet Count 198 135 - 317 2021 [facility] x10(9)/L 1:11 AM CDT Leukocytes 5.6 3.4 - 9.6 2021 [facility] x10(9)/L 1:11 AM CDT Neutrophils 4.01 1.56 - 2021 [facility] 6.45 1:11 AM CDT x10(9)/L Lymphocytes 0.69 (L) 0.95 - 2021 [facility] 3.07 1:11 AM CDT x10(9)/L Monocytes 0.58 0.26 - 2021 [facility] 0.81 1:11 AM CDT x10(9)/L Eosinophils 0.24 0.03 - 2021 [facility] 0.48 1:11 AM CDT x10(9)/L Basophils 0.03 0.01 - 2021 [facility] 0.08 1:11 AM CDT x10(9)/L Specimen Anatomical Collection Method Collection Time Receive d Time (Source) Location / / Volume Laterality Blood (Blood, 2021 1:01 AM 12/03/19 1:09 Venous) CDT AM CDT Jamal Andujar APRN, C.N.P. LAB BLOOD ADD-ON Performing Organization Address City/[facility] Phon e Number [facility] - [address] [place] [address] (ABNORMAL) GGT (Gamma-Glutamyltransferase) (2021 12:57 AM CDT) Component Value Ref Test Analysis Performed At Patholo gist Range Method Time Signature Gamma 169 (H) 8 - 61 2021 DTL Glutamyltransferase U/L 2:20 PM CDT (GGT), S Specimen Anatomical Collection Method Collection Time Receive d Time (Source) Location / / Volume Laterality Blood (Blood, 2021 12:57 2021 1:48 Venous) AM CDT PM CDT Simran Helm P.A.-C., M.S. 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) Dialysis Peritoneal Status (HCC) Atrial Fibrillation Paroxysmal (HCC) Hypertension 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 documented in this encounter Admitting Diagnoses Diagnosis Empyema Pleural (HCC) documented in this encounter Administered Medications Inactive Administered Medications - up to 3 most recent administrations Medication Order MAR Action Action Date Dose Rate Site allopurinoL tablet 100 mg Given 12/08/2021 8:13 AM CDT 100 mg (ZYLOPRIM) 100 mg, oral, Daily, First dose on Mon12/02/21 at 0900 Given 12/07/2021 8:02 AM CDT 100 mg Given 12/06/2021 8:04 AM CDT 100 mg amoxicillin-pot clavulanate 500-125 mg per Given 12/08/2021 8:50 AM CDT 500 mg tablet 500 mg (AUGMENTIN) 500 mg (1 tablet), oral, Every 24 hours scheduled, First dose on Mon12/08/21 at 0900, For 17 days, Drug Monitoring Program: Pharmacist to adjust medication dosing based on indication and drug clearance factors., Indications: Respiratory tract infection, community acquired calcitRIOL capsule 0.25 mcg (ROCALTROL) Given 12/06/2021 9:30 PM CDT 0.25 mcg 0.25 mcg, oral, User Specified (3 times per day on Mon), First dose on Mon12/03/21 at 0800, Daily on / only. Given 12/06/2021 4:03 PM CDT 0.25 mcg Given 12/06/2021 7:58 AM CDT 0.25 mcg calcitRIOL capsule 0.25 mcg (ROCALTROL) Given 12/08/2021 8:13 AM CDT 0.25 mcg 0.25 mcg, oral, 3 times weekly (Once per day on Mon), First dose (after last modification) on Mon12/08/21 at 0900, Daily on / only. diclofenac sodium 1 % gel 2 g (VOLTAREN) Given 12/05/2021 8:13 PM CDT 2 g 2 g, topical, 4 times daily, First dose on Mon12/02/21 at 1700, Do not exceed 32 g per day, over all affected joints. Use dosing card to measure product. 2 g = 2.25 inches, 4 gm = 4.5 inches. Rinse dosing card after use and save for each administration. Given 12/04/2021 8:59 AM CDT 2 g Given 12/03/2021 10:00 PM CDT 2 g gentamicin 0.1 % cream 1 application Given 12/07/2021 8:03 A M CDT 1 application (GARAMYCIN) 1 application, topical, Daily, First dose on Mon12/06/21 at 2030, Apply around PD catheter site after washing area with soap and water and cover with gauze. hydrALAZINE tablet 10 mg (APRESOLINE) Given 12/04/2021 2:31 PM CDT 10 mg 10 mg, oral, 3 times daily, First dose on Mon12/02/21 at 0900 Given 12/04/2021 10:39 AM CDT 10 mg Given 12/03/2021 10:00 PM CDT 10 mg iohexoL 300 mg iodine/mL solution Given 12/06/2021 2:02 PM 250 m L Mouth (OMNIPAQUE) CDT Code/trauma/sedation medication, Starting on Mon12/06/21 at 1402 iohexoL 300 mg iodine/mL solution 1-200 mL Given 12/03/2021 3:35 PM CDT 80 mL (OMNIPAQUE) 1-200 mL, intravenous, Once in imaging, contrast, Starting on Mon12/03/21 at 1529, For 1 dose, Imaging Protocol Orders, Dose per Radiant Medication Guidelines isosorbide dinitrate tablet 2.5 mg (ISOR DIL) Given 12/08/2021 6:33 AM CDT 2.5 mg 2.5 mg, oral, 3 times daily before meals, First dose (after last modification) on Mon12/07/21 at 1600, HOLD for SBP < 100 and notify service Given 12/07/2021 4:25 PM CDT 2.5 mg isosorbide dinitrate tablet 5 mg (ISORDI L) Given 12/07/2021 11:32 AM CDT 5 mg 5 mg, oral, 3 times daily before meals, First dose on Mon12/02/21 at 0700, HOLD for SBP < 100 and notify service Given 12/07/2021 6:52 AM CDT 5 mg Given 12/06/2021 4:03 PM CDT 5 mg lactated Ringer's bolus 1,000 mL New Bag 12/06/2021 12:54 PM CDT 1,000 mL 167 mL/hr 1,000 mL, intravenous, at 167 mL/hr, Administer over 6 Hours, Once, On Mon12/06/21 at 1300, For 1 dose metoprolol tartrate tablet 25 mg (LOPRES SOR) Given 12/07/2021 8:02 AM CDT 25 mg 25 mg, oral, 2 times daily, First dose on Mon12/02/21 at 0900, HOLD for SBP < 90 or HR < 55 and notify service Given 12/06/2021 9:30 PM CDT 25 mg Given 12/06/2021 8:01 AM CDT 25 mg metoprolol tartrate tablet 25 mg (LOPRES SOR) Given 12/08/2021 8:13 AM CDT 25 mg 25 mg, oral, 2 times daily, First dose (after last modification) on Mon12/07/21 at 2100, HOLD for SBP < 90 or HR < 55 and notify service Given 12/07/2021 9:41 PM CDT 25 mg multivitamin renal failure 100-1 mg 1 Given 12/07/2021 4:25 PM C DT 1 tablet tablet (DIALYVITE) 1 tablet, oral, Daily with dinner, First dose on Mon12/03/21 at 1700, give after dialysis on dialysis days Given 12/06/2021 4:03 PM CDT 1 tablet Given 12/05/2021 4:59 PM CDT [address] tablet 40 mg (PROTONIX) Given 12/08/2021 6:33 AM CDT 40 mg 40 mg, oral, Daily before breakfast, First dose on Mon12/02/21 at 0700, pantoprazole 40 mg oral daily was interchanged for omeprazole 20 or 40 mg oral daily Swallow whole. Do NOT crush, chew, or split tablet. Given 12/07/2021 6:52 AM CDT 40 mg Given 12/06/2021 6:42 AM CDT 40 mg PD 1.5 % dextrose Low Ca 2.5 mEq/L- Mg 0.5 Given 12/02 9:20 PM CDT 2,000 mL mEq/L 2,000 mL dialysis solution intraperitoneal, Once, On Mon12/02/21 at 1800, For 1 dose, Scheduling/ADT, Refer to: Continuous Cycling Peritoneal Dialysis (CCPD) order for therapy details PD 1.5 % dextrose Low Ca 2.5 mEq/L- Mg 0.5 Given 12/03 7:29 PM CDT 2,000 mL mEq/L 2,000 mL dialysis solution intraperitoneal, Once, On Mon12/03/21 at 1800, For 1 dose, Scheduling/ADT, Refer to: Continuous Cycling Peritoneal Dialysis (CCPD) order for therapy details PD 1.5 % dextrose Low Ca 2.5 mEq/L- Mg 0.5 Given 12/04 8:03 PM CDT 2,000 mL mEq/L 2,000 mL dialysis solution intraperitoneal, Once, On Mon12/04/21 at 1800, For 1 dose, Scheduling/ADT, Refer to: Continuous Cycling Peritoneal Dialysis (CCPD) order for therapy details PD 1.5 % dextrose Low Ca 2.5 mEq/L- Mg 0.5 Given 12/05 7:33 PM CDT 2,000 mL mEq/L 2,000 mL dialysis solution intraperitoneal, Once, On Mon12/05/21 at 1800, For 1 dose, Scheduling/ADT, Refer to: Continuous Cycling Peritoneal Dialysis (CCPD) order for therapy details PD 1.5 % dextrose Low Ca 2.5 mEq/L- Mg 0.5 mEq/L Given 2 7:33 PM CDT 2,000 mL dialysis solution intraperitoneal, Once, On Mon12/06/21 at 1800, For 1 dose, Scheduling/ADT, Refer to: Continuous Cycling Peritoneal Dialysis (CCPD) order for therapy details PD 1.5 % dextrose Low Ca 2.5 mEq/L- Mg 0.5 mEq/L Given 2 8:03 PM CDT 2,000 mL dialysis solution intraperitoneal, Once, On Mon12/07/21 at 1800, For 1 dose, Scheduling/ADT, Refer to: Continuous Cycling Peritoneal Dialysis (CCPD) order for therapy details PD 1.5 % dextrose Low Ca 2.5 mEq/L- Mg 0.5 Given 12/02 9:21 PM CDT 6,000 mL mEq/L 6,000 mL dialysis solution intraperitoneal, Once, On Mon12/02/21 at 1800, For 1 dose, Scheduling/ADT, Refer to: Continuous Cycling Peritoneal Dialysis (CCPD) order for therapy details PD 1.5 % dextrose Low Ca 2.5 mEq/L- Mg 0.5 Given 12/03 7:28 PM CDT 6,000 mL mEq/L 6,000 mL dialysis solution intraperitoneal, Once, On Mon12/03/21 at 1800, For 1 dose, Scheduling/ADT, Refer to: Continuous Cycling Peritoneal Dialysis (CCPD) order for therapy details PD 1.5 % dextrose Low Ca 2.5 mEq/L- Mg 0.5 Given 12/04 8:03 PM CDT 6,000 mL mEq/L 6,000 mL dialysis solution intraperitoneal, Once, On Mon12/04/21 at 1800, For 1 dose, Scheduling/ADT, Refer to: Continuous Cycling Peritoneal Dialysis (CCPD) order for therapy details PD 1.5 % dextrose Low Ca 2.5 mEq/L- Mg 0.5 Given 12/05 7:33 PM CDT 6,000 mL mEq/L 6,000 mL dialysis solution intraperitoneal, Once, On Mon12/05/21 at 1800, For 1 dose, Scheduling/ADT, Refer to: Continuous Cycling Peritoneal Dialysis (CCPD) order for therapy details PD 1.5 % dextrose Low Ca 2.5 mEq/L- Mg 0.5 mEq/L Given 2 7:32 PM CDT 6,000 mL dialysis solution intraperitoneal, Once, On Mon12/06/21 at 1800, For 1 dose, Scheduling/ADT, Refer to: Continuous Cycling Peritoneal Dialysis (CCPD) order for therapy details PD 1.5 % dextrose Low Ca 2.5 mEq/L- Mg 0.5 mEq/L Given 2 8:03 PM CDT 6,000 mL dialysis solution intraperitoneal, Once, On Mon12/07/21 at 1800, For 1 dose, Scheduling/ADT, Refer to: Continuous Cycling Peritoneal Dialysis (CCPD) order for therapy details piperacillin-tazobactam in dextrose New Bag 12/07/2021 11:10 P M 2.25 g 100 mL/hr (iso-osm) IVPB 2.25 g (ZOSYN) CDT 2.25 g, intravenous, at 100 mL/hr, Administer over 0.5 Hours, Every 8 hours, First dose on Alyssa 12/02/21 at 0800, Drug Monitoring Program: Pharmacist to adjust medication dosing based on indication and drug clearance factors., Indications: Empyema New Bag 12/07/2021 4:25 PM CDT 2.25 g 100 mL/hr New Bag 12/07/2021 7:58 AM CDT 2.25 g 100 mL/hr polyethylene glycol powder packet 17 g Given 12/04/2021 10:39 AM CDT 17 g (MIRALAX) 17 g, oral, Daily, First dose (after last modification) on Mon12/03/21 at 0900, Ordered sequence of administration: polyethylene glycol, then bisacodyl until BM achieved. Avoid mixing with starch-based thickened liquids. Given 12/03/2021 9:14 AM CDT 17 g potassium chloride ER tablet 40 mEq Given 2021 3:16 AM CDT 40 mEq (KLORCON/K-TAB) 40 mEq, oral, Once, On Alyssa 12/02/21 at 0230, For 1 dose, Swallow whole. Do NOT crush, chew, or split tablet. torsemide tablet 40 mg (DEMADEX) Given 12/06/2021 8:01 AM CDT 40 mg 40 mg, oral, Daily, First dose on Alyssa 12/02/21 at 0900 Given 12/05/2021 9:03 AM CDT 40 mg Given 12/04/2021 10:39 AM CDT 40 mg warfarin management (COUMADIN) oral, Daily, First dose on Alyssa 12/02/21 at 1130, Pharma cist to Dose: Yes, Target INR: 2 - 3, Comorbidities that constitute Warfarin Sen sitivity: Poor nutrition state (e.g., several days or more of significantly red uced dietary intake), Indication: Atrial fibrillation (AF), Therapy type: Re sume Warfarin therapy warfarin tablet 0.5 mg (COUMADIN) Given 2021 5:02 PM CDT 0.5 mg 0.5 mg, oral, Once, On Alyssa 12/02/21 at 1700, For 1 dose, HAZARDOUS - Handle with care. Swallow whole. Do NOT chew or split tablet. May crush using the RxCrush system. warfarin tablet 0.5 mg (COUMADIN) Given 12/04/2021 4:57 PM CDT 0.5 mg 0.5 mg, oral, Once, On 12/04/21 at 1700, For 1 dose, HAZARDOUS - Handle with care. Swallow whole. Do NOT chew or split tablet. May crush using the RxCrush system. warfarin tablet 0.5 mg (COUMADIN) Given 12/05/2021 4:59 PM CDT 0.5 mg 0.5 mg, oral, Once, On Mon12/05/21 at 1700, For 1 dose, HAZARDOUS - Handle with care. Swallow whole. Do NOT chew or split tablet. May crush using the RxCrush system. warfarin tablet 1 mg (COUMADIN) Given 12/06/2021 5:40 PM CDT 1 mg 1 mg, oral, Once, On Mon12/06/21 at 1700, For 1 dose, HAZARDOUS - Handle with care. Swallow whole. Do NOT chew or split tablet. May crush using the RxCrush system. warfarin tablet 1.5 mg (COUMADIN) Given 12/07/2021 5:17 PM CDT 1.5 mg 1.5 mg, oral, Once, On Mon12/07/21 at 1700, For 1 dose documented in this encounter Active and Recently Administered Medications Times are shown in CDT. Scheduled Medication Order 12/06/2021 12/07/2021 12/08/2021 allopurinoL tablet 100 mg (ZYLOPRIM) 0804 (Given - Pro vider: Yadi Lewis R.N.) 0802 (Given - Provider: Yadi Lewis R.N.) 0813 (Given - Provider: Anita Hill R.N.) 100 mg, oral, Daily, First dose on Alyssa 12/02/21 at 0900 amoxicillin-pot clavulanate 500-125 mg per tablet 500 mg (AUGMEN TIN) 0850 (Given - Provider: Suzy EspinalNBailey) 500 mg (1 tablet), oral, Every 24 hours scheduled, First dose on Mon12/08/21 at 0900, For 17 days, Drug Monitoring Program: Pharmacist to adjust medication dosing based on indication and drug clearance factors., Indications: Respiratory tract infection, community ac quired calcitRIOL capsule 0.25 mcg (ROCALTROL) (CANCELED) 075 8 (Given - Provider: Yadi Lewis R.N.)1603 (Given - Provider: Yadi Lewis R.N.)0240 (Given - Provider: Yohan Edgar R.N.) 0.25 mcg, oral, User Specified (3 times per day on Mon), First dose on Mon12/03/21 at 0800, Daily on only. calcitRIOL capsule 0.25 mcg (ROCALTROL) 0813 (Given - Provider: Anita Hill R.N.) 0.25 mcg, oral, 3 times weekly (Once per day on Mon), First dose (after last modification) on Mon12/08/21 at 0900, Daily on only. diclofenac sodium 1 % gel 2 g (VOLTAREN) 0757 (Not Giv en - Provider: Yadi Lewis R.N. - Reason: Patient/family refused)1122 (Not Given - Provider: Yadi Lewis R.N. - Reason: Patient/family refused) 0742 (Not Given - Provider: Yadi Lewis R.N. - Reason: Patient/family refused)1101 (Not Given - Provider: Yadi Lewis R.N. - Reason: Patient/family refused) 0812 (Not Given - Provider: Anita Hill R.N. - Reason: Patient/family refused)1112 (Not Given - Provider: Anita Hill R.N. - Reason: Patient/family refused) 2 g, topical, 4 times daily, First dose on Mon12/02/21 at 1700, Do not exceed 32 g per day, over all affected joints. Use dosing card to measure product. 2 g = 2.25 inches, 4 gm = 4.5 inches. Rinse dosi 1603 (Not Given - Provider: Yadi Lewis R.N. - Reason: Patient/family refused)2132 (Not Given - Provider: Yohan Edgar R.N. - Reason: Patient/family refused) 1626 (Not Given - Provider: Yadi Lewis R.N. - Reason: Patient/family refused)2141 (Not Given - Provider: Yohan Edgar R.N. - Reason: Patient/family refused) ng card after use and save for each administration. gentamicin 0.1 % cream 1 application (GARAMYCIN) 2129 (Not Given - Provider: Yohan Edgar R.N. - Reason: Other) 0803 (Given - Provider: Yadi Lewis R.N.) 0818 (Not Given - Provider: Anita bellamy R.N. - Reason: Patient/family refused) 1 application, topical, Daily, First dos e on Mon12/06/21 at 2030, Apply around PD catheter site after washing area with soap and water and cover with gauze. hydrALAZINE tablet 10 mg (APRESOLINE) 0900 (Dose Auto Held - Provider: Yvette Cherry APRN, C.N.P.)1400 (Dose Auto Held - Provider: Yvette Cherry APRN, C.N.P.)2100 (Not Given - Provider: Yohan Edgar R.N. - Reason: See Provider Order) 0900 (Dose Auto Held - Provider: Yvette Cherry APRN, C.N.P.)1400 (Dose Auto Held - Provider: Yvette Cherry APRN, C.N.P.)2100 (Not Given - Provider: Yohan Edgar R.N. - Reason: See Provider Order) 0900 (Not Given - Provider: Anita Hill R.N. - Reason: See Provider Order)1400 (Dose Auto Held - Provider: Yvette Cherry APRN, C.N.P.)1613 (Unheld by provider - Provider: Discharge Provider, Automatic) 10 mg, oral, 3 times daily, First dose on Mon12/02/21 at 0900 isosorbide dinitrate tablet 2.5 mg (ISORDIL) 1625 (Given - Provider: Yadi Lewis R.N.) 0633 (Given - Provider: Yohan lemons R.N.)1100 (Due) 2.5 mg, oral, 3 times daily before meals , First dose (after last modification) on Mon12/07/21 at 1600, HOLD for SBP < 100 and notify service isosorbide dinitrate tablet 5 mg (ISORDIL) (CANCELED) 0642 (Given - Provider: Paty Pina M.S., R.N., C.M.S.R.N.)1122 (Given - Provider: Yadi Lewis R.N.)1603 (Given - Provider: Yadi Lewis R.N.) 0652 (Given - Provider: Yohan Edgar R.N.)1132 (Given - Provider: Yadi Lewis R.N.) 5 mg, oral, 3 times daily before meals, First dose on Mon12/02/21 at 0700, HOLD for SBP < 100 and notify service lactated Ringer's bolus 1,000 mL (COMPLETED) 1254 (New Bag - Provider: Yadi Lewis R.N.) 1,000 mL, intravenous, at 167 mL/hr, Adm inister over 6 Hours, Once, On Mon12/06/21 at 1300, For 1 dose metoprolol tartrate tablet 25 mg (LOPRESSOR) (CANCELED ) 0801 (Given - Provider: Yadi Lewis R.N.)213 (Given - Provider: Yohan Edgar R.N.) 08 (Given - Provider: Yadi Lewis R.N.) 25 mg, oral, 2 times daily, First dose o n Mon12/02/21 at 0900, HOLD for SBP < 90 or HR < 55 and notify service metoprolol tartrate tablet 25 mg (LOPRESSOR) 214 (Given - Provider: Yohan Edgar R.N.) 0813 (Given - Provider: Anita Hill R.N.) 25 mg, oral, 2 times daily, First dose ( after last modification) on Mon12/07/21 at 2100, HOLD for SBP < 90 or HR < 55 and notify service multivitamin renal failure 100-1 mg 1 tablet (DIALYVIT E) 1603 (Given - Provider: Yadi Lewis R.N.) 1625 (Given - Provider: Yadi Lewis R.N.) 1 tablet, oral, Daily with dinner, First dose on Mon12/03/21 at 1700, give after dialysis on dialysis days pantoprazole DR tablet 40 mg (PROTONIX) 0642 (Given - Provider: Paty Pina M.S., R.N., C.M.S.R.N.) 0652 (Given - Provider: Yohan lemons, R.N.) 0633 (Given - Provider: Yohan lemons, R.N.) 40 mg, oral, Daily before breakfast, Fir st dose on Mon12/02/21 at 0700, pantoprazole 40 mg oral daily was interchanged for omeprazole 20 or 40 mg oral daily Swallow whole. Do NOT crush, chew, or split tablet. PD 1.5 % dextrose Low Ca 2.5 mEq/L- Mg 0 .5 mEq/L 2,000 mL dialysis solution (COMPLETED) 1932 (Given - Provider: Elmo Marie R.N.) intraperitoneal, Once, On Mon12/06/21 at 1800, For 1 dose, Scheduling/ADT, Refer to: Continuous Cycling Peritoneal Dialysis (CCPD) order for therapy details PD 1.5 % dextrose Low Ca 2.5 mEq/L- Mg 0 .5 mEq/L 2,000 mL dialysis solution (COMPLETED) 2002 (Given - Provider: Trang Mares) intraperitoneal, Once, On Mon12/07/21 at 1800, For 1 dose, Scheduling/ADT, Refer to: Continuous Cycling Peritoneal Dialysis (CCPD) order for therapy details PD 1.5 % dextrose Low Ca 2.5 mEq/L- Mg 0 .5 mEq/L 6,000 mL dialysis solution (COMPLETED) 1931 (Given - Provider: Elmo Marie RNicholas) intraperitoneal, Once, On Mon12/06/21 at 1800, For 1 dose, Scheduling/ADT, Refer to: Continuous Cycling Peritoneal Dialysis (CCPD) order for therapy details PD 1.5 % dextrose Low Ca 2.5 mEq/L- Mg 0 .5 mEq/L 6,000 mL dialysis solution (COMPLETED) 2002 (Given - Provider: Trang Mares) intraperitoneal, Once, On Mon12/07/21 at 1800, For 1 dose, Scheduling/ADT, Refer to: Continuous Cycling Peritoneal Dialysis (CCPD) order for therapy details piperacillin-tazobactam in dextrose (iso-osm) IVPB 2.2 5 g (ZOSYN) (CANCELED) 0758 (New Bag - Provider: Yadi Lewis R.N.)1603 (New Bag - Provider: Yadi Lewis R.N.) 0018 (New Bag - Provider: Yohan bui R.N.)0758 (New Bag - Provider: Yadi Lewis R.N.)1625 (New Bag - Provider: Yadi Lewis R.N.)2310 (New Bag - Provider: Yohan Edgar RNicholas) 2.25 g, intravenous, at 100 mL/hr, Admin ister over 0.5 Hours, Every 8 hours, First dose on Mon12/02/21 at 0800, Drug Monitoring Program: Pharmacist to adjust medication dosing based on indication and drug clearance factors., Indications: Empyema polyethylene glycol powder packet 17 g (MIRALAX) 0801 (Not Given - Provider: Yadi Lewis R.N. - Reason: NPO) 0803 (Not Given - Provider: Yadi Lewis R.N. - Reason: Patient/family refused) 0808 (Not Given - Provider: Anita Hill RBaileyNBailey - Reason: Patient/family refused) 17 g, oral, Daily, First dose (after las t modification) on Mon12/03/21 at 0900, Ordered sequence of administration: polyethylene glycol, then bisacodyl until BM achieved. Avoid mixing with starch-based thickened liquids. sodium chloride (PF) 0.9 % injection 1-100 mL 1-100 mL, intravenous, Once, On 12/03 at 1530, For 1 dose, Imaging Protocol Orders torsemide tablet 40 mg (DEMADEX) 0801 (Given - Provide r: Yadi Lewis R.N.) 0640 (Held by provider - Provider: Andra Benson, PBaileyA.-C. - Reason: Other - Comment: Per Neph)0900 (Dose Auto Held - Provider: Marlyn Benson, P.A.-CBailey) 0900 (Not Given - Provider: Anita bellamy R.N. - Reason: See Provider Order)1613 (Unheld by provider - Provider: Discharge Provider, Automatic) 40 mg, oral, Daily, First dose on Mon12/02/21 at 0900 warfarin management (COUMADIN) 1700 (Due) 1700 (Due) oral, Daily, First dose on Alyssa 12/02/21 a t 1130, Pharmacist to Dose: Yes, Target INR: 2 - 3, Comorbidities that constitute Warfarin Sensitivity: Poor nutrition state (e.g., several days or more of signif icantly reduced dietary intake), Indicat ion: Atrial fibrillation (AF), Therapy type: Resume Warfarin therapy warfarin tablet 1 mg (COUMADIN) (COMPLETED) 1740 (Give n - Provider: Yadi Lewis R.N.) 1 mg, oral, Once, On Mon12/06/21 at 1700 , For 1 dose, HAZARDOUS - Handle with care. Swallow whole. Do NOT chew or split tablet. May crush using the [employer] system. warfarin tablet 1.5 mg (COUMADIN) (COMPLETED) 1716 (Given - Provider: Yadi Lewis R.N.) 1.5 mg, oral, Once, On Mon12/07/21 at 1700, For 1 dose PRN Medication Order 12/06/2021 12/07/2021 12/08/2021 calcium carbonate chewable tablet 400 mg of calcium (TUMS) 400 mg of calcium, oral, Every 2 hour RI N, heartburn, indigestion, Starting on Mon12/02/21 at 0059, Doses listed are in mg of elemental calcium. Take with food. 500 mg calcium carbonate contains 200 mg of elemental calcium. iohexoL 300 mg iodine/mL solution (OMNIPAQUE) (COMPLET ED) 1402 (Given - Provider: Glenn Spencer M.D.) Code/trauma/sedation medication, Starting on Mon12/06/21 at 1402 documented in this encounter
--- OUTSIDE RECORDS SUMMARY | 2022-03-31 20:37 | XMS_ITS | Encounter Summary ---
:1940 Author Organization [facility] Address [address] [place] [address] Care Team Providers Name Role Phone Unavailable Primary Care Provider Unavailable Encounter Details Date Type Department Care Team Description 12/03/2021 Ancillary Procedure Department of Pulmonary and CC [...] More than 4 times per year 02/14/2019 yazdanism services? Do you belong to any clubs [...] Laboratory Medicine Mehrdad Lazcano APRN, C.N.P. [address] [place] [address] 04/04/2022 Appointment Cardiovascular Disease Mehrdad Lazcano APRN, C.N.P. [address] [place] [address] 04/05/2022 Ancillary Procedure Cardiovascular Disease Kayla Heredia M.D. [address] [place] [phone] 04/05/2022 Appointment Cardiovascular Disease Jessa Heredia M.D. [address] [place] [address] 04/12/2022 Clinical Communication Admitting/Central Scheduling 04/15/2022 Comprehensive Visit Cardiovascular Disease Kayla Heredia M.D. [address] [place] [address] documented as of this encounter Procedures Procedure Name Priority Date/Time Associated Diagnosis Comme nts PULMONARY AND CC Routine 12/03/2021 7:45 AM Resul ts for this MEDICINE IMAGE EXAM CDT procedur e are in the results section. documented in this encounter Results Non-Radiology Image-Pulmonary And CC Medicine Image Exam (12/03/2021 7:45 AM CDT) Specimen (Source) Anatomical Collection Method Collection Time Re ceived Time Location / / Volume Laterality 12/03/2021 7:42 AM CDT Narrative [facility] - 12/03/2021 8:13 AM CDT This order has been created [...]
--- OUTSIDE RECORDS SUMMARY | 2022-03-31 20:37 | XMS_ITS | Encounter Summary ---
:1940 Author Organization [facility] Address [address] [place] [address] Care Team Providers Name Role Phone Unavailable Primary Care Provider Unavailable Encounter Details Date Type Department Care Team Description 2021 Ancillary Procedure Department of Radiology Gavin Andujar, in [facility] Pablo queen APRN.N.P. [address] [facility] [address] [place] [address] [place] [phone] Social History Tobacco Use Types Packs/Day Years [...] or relatives? How often do you attend sabianism or More than 4 times per year 02/14/2019 zoroastrianism services? Do you belong to any clubs or No 02/14/2019 organizations such as sabianism groups, unions, fraternal or athletic groups, or [...] Laboratory Medicine Mehrdad Lazcano APRN, C.N.P. [address] [place] [address] 04/04/2022 Appointment Cardiovascular Disease Mehrdad Lazcano APRN, C.N.P. [address] [place] [address] 04/05/2022 Ancillary Procedure Cardiovascular Disease Kayla Heredia M.D. [address] [place] [phone] 04/05/2022 Appointment Cardiovascular Disease Jessa Heredia M.D. [address] [place] [phone] 04/12/2022 Clinical Communication Admitting/Central Scheduling 04/15/2022 Comprehensive Visit Cardiovascular Disease Kayla Heredia M.D. [address] [place] [address] documented as of this encounter Procedures Procedure Name Priority Date/Time Associated Comments Diagnosis INTERPRETATION OF RAD - Routine 2021 2:01 Result s for OUTSIDE CT CHEST (most inpatients AM CDT this pr ocedure and all are in the outpatients) results section. documented in this encounter Results Interpretation of Outside CT Chest (2021 2:01 [...] Bilateral renal atrophy with non-obst ructive stones. Jamal Andujar APRN, C.N.P. IMG CT PROCEDURES documented in this encounter Visit Diagnoses Not on filedocumented in this encounter
--- OUTSIDE RECORDS SUMMARY | 2022-03-31 20:37 | XMS_ITS | Encounter Summary ---
:1940 Author Organization [facility] Address [address] [place] [address] Care Team Providers Name Role Phone Unavailable Primary Care Provider Unavailable Encounter Details Date Type Department Care Team Description 02/18/2019 Ancillary Procedure Department of Gastroenterology Social History [...] or relatives? How often do you attend spiritism or More than 4 times per year 02/14/2019 zoroastrian services? Do you belong to any clubs or No 02/14/2019 organizations such as spiritism groups, unions, fraternal or athletic groups, or [...] Laboratory Medicine Mehrdad Lazcano APRN, C.N.P. [address] [place] [address] 04/04/2022 Appointment Cardiovascular Disease Mehrdad Lazcano APRN, C.N.P. [address] [place] [address] 04/05/2022 Ancillary Procedure Cardiovascular Disease Kayla Heredia M.D. [address] [place] [phone] 04/05/2022 Appointment Cardiovascular Disease Jessa Heredia M.D. [address] [place] [phone] 04/12/2022 Clinical Communication Admitting/Central Scheduling 04/15/2022 Comprehensive Visit Cardiovascular Disease Kayla Heredia M.D. [address] [place] [phone] documented as of this encounter Procedures Procedure Name Priority Date/Time Associated Comments Diagnosis GASTROENTEROLOGY IMAGE Routine 02/18/2019 3:25 Re sults for this EXAM PM CDT procedure are i n the results section. documented in this encounter Results Upper GI endoscopy-Gastroenterology Image Exam (02/18/2019 3:25 PM CDT) Specimen (Source) Anatomical Collection Method Collection Time Re ceived Time Location / / Volume Laterality 02/18/2019 3:24 PM CDT Narrative [facility] - 02/18/2019 4:26 PM CDT This order has been created [...]
--- OUTSIDE RECORDS SUMMARY | 2022-03-31 20:37 | XMS_ITS | Encounter Summary ---
:1940 Author Organization [facility] Address [address] [place] [address] Care Team Providers Name Role Phone Unavailable Primary Care Provider Unavailable Encounter Details Date Type Department Care Team Description 2021 Clinical Communication RST Simran Field [address] [facility] Estela Mendes, M.S. [place], [place] [address] [facility] [phone] [place] [phone] Social History Tobacco Use Types Packs/Day Years [...] More than 4 times per year 02/14/2019 jew services? Do you belong to any clubs [...] Laboratory Medicine Mehrdad Lazcano APRN, C.N.P. [address] [place] [address] 04/04/2022 Appointment Cardiovascular Disease Mehrdad Lazcano APRN, C.N.P. [address] [place] [address] 04/05/2022 Ancillary Procedure Cardiovascular Disease Kayla Heredia M.D. [address] [place] [phone] 04/05/2022 Appointment Cardiovascular Disease Jessa Heredia M.D. [address] [place] [phone] 04/12/2022 Clinical Communication Admitting/Central Scheduling 04/15/2022 Comprehensive Visit Cardiovascular Disease Kayla Heredia M.D. [address] [place] [address] documented as of this encounter Visit Diagnoses Diagnosis Achalasia - Primary documented in this encounter Additional Health Concerns Infection Onset Date Last Indicated Resolved Time COVID19 Pending 12/09/2021 12/09/2021 12/09/2021 8:00 PM CDT COVID19 Pending 12/09/2021 12/09/2021 12/09/2021 8:26 PM CDT documented as of this encounter
--- OUTSIDE RECORDS SUMMARY | 2022-03-31 20:38 | XMS_ITS | Encounter Summary ---
:1940 Author Organization [facility] Address [address] [place] [address] Care Team Providers Name Role Phone Unavailable Primary Care Provider Unavailable Encounter Details Date Type Department Care Team Description 06/25/2003 Hospital Encounter HX NO MAPPING Social History Tobacco Use Types Packs/Day Years Used Date Smoking Tobacco: Never Assessed Social Isolation Answer Date Recorded In a typical week, how many times do you Once a week 02/14/2019 talk on the phone with family, friends, or neighbors? How often do you get together with friends More than three t imes a week 02/14/2019 or relatives? How often do you attend christian or More than 4 times per year 02/14/2019 mu-ism services? Do you belong to any clubs or No 02/14/2019 organizations such as christian groups, unions, fraternal or athletic groups, or [...] or getting things needed for daily living? Sex Assigned at Date Recorded Not on file documented as of this encounter Plan of Treatment Upcoming Encounters Date Type Specialty Care Team Description 04/04/2022 Appointment Laboratory Medicine Mehrdad Lazcano APRN, C.N.P. [address] [place] [address] 04/04/2022 Appointment Cardiovascular Disease Mehrdad Lazcano APRN, C.N.P. [address] [place] [address] 04/05/2022 Ancillary Procedure Cardiovascular Disease Kayla Heredia M.D. [address] [place] [phone] 04/05/2022 Appointment Cardiovascular Disease Jessa Heredia M.D. [address] [place] [phone] 04/12/2022 Clinical Communication Admitting/Central Scheduling 04/15/2022 Comprehensive Visit Cardiovascular Disease Kayla Heredia M.D. [address] [place] [phone] documented as of this encounter Procedures Procedure Name Priority Date/Time Associated Diagnosis Comme nts HXGENERAL PATHOLOGY Routine 06/25/2003 3:49 PM Re sults for this REPORT ASTRONOMY PROFESSOR procedure are i n the results section. EEG ROUTINE - AWAKE Routine 06/25/2003 8:13 AM Re sults for this AND SLEEP ASTRONOMY PROFESSOR procedure are i n the results section. MR BRAIN WITHOUT Routine 06/25/2003 7:31 AM Resul ts for this AND WITH IV ASTRONOMY PROFESSOR procedure are i n CONTRAST the results section. documented in this encounter Results Hx general Pathology Report (06/25/2003 3:49 PM ASTRONOMY PROFESSOR) Specimen Anatomical Collection Method Collection Time Receive d Time (Source) Location / / Volume Laterality 06/25/2003 3:49 PM 3 3:49 ASTRONOMY PROFESSOR PM ASTRONOMY PROFESSOR Narrative [facility] - 06/25/2003 3:49 PM ASTRONOMY PROFESSOR ?06/25/2003 General Biopsy ? ([id number]) ? Requested By: ??Ta Jasmine ??[phone] ? TISSUE DESCRIPTION: [id number] ?? A. ??Bulb, Duodenum biopsy: ??(1 piece 0.3 cm. in diameter) ?DIAGNOSIS: ?? Small bowel, duodenal bulb, nodule, end oscopic biopsy: ??Heterotopic fundic-type mucosa. ? 06/26/03 ??Rahel Woo M.D. [phone] ? Procedure Note 11/11/2017 06/25/2003 General Biopsy ([id number]) Requested By: Dieudonne Higgins M.D. [phone] TISSUE DESCRIPTION: [id number] A1 A. Bulb, Duodenum biopsy: (1 piece 0.3 cm. in diameter) DIAGNOSIS: Small bowel, duodenal bulb, nodule, end oscopic biopsy: Heterotopic fundic-type mucosa. 06/26/03 Rahel Woo M.D. [phone] Historical Provider LAB PATHOLOGY/CYTOLOGY ORDER SHON Performing Organization Address City/State/ZIP Code Phon e Number [facility] - [address] [place], [place] [address] [facility] EEG routine - awake and sleep (06/25/2003 8:13 AM ASTRONOMY PROFESSOR) Specimen (Source) Anatomical Collection Method Collection Time Re ceived Time Location / / Volume Laterality 06/25/2003 8:13 AM ASTRONOMY PROFESSOR Narrative [facility] - 06/25/2003 8:13 AM ASTRONOMY PROFESSOR ?? 25 Jun 2003 ? Electroencephalography ?Final Report ? Referring Physician: ??Gen lenka Schaffer ??[id number] ?Date: ??25 Jun 2003 ?? EEG Shoe Repairer: ? Micheal Lewis [phone] ?? Clinical Problem: ? Seizures ?? CLINICAL INTERPRETATION: ??The EEG s hows a moderate degree of slowing and increased amplitude over the central and right ?? parasaggital regions. ??These findin gs would be consistent with history of previous craniotomy and lesion affecting the ?? regions. ??Background EEG shows slig htly excessive generalized fast frequency activities, which is often a medication ?? effect. ??No epileptiform discharges are seen throughout the record. ??Hypopneic or apneic spells were observed during ?? sleep. ?? EEG CLASSIFICATION: ??Dysrhythmia gr 2, Asymmetry gr. 1, increased central and right parasaggital regions (awake and ?? asleep); ??patient monitor. ?? REPORT: ??The recording during wakef ulness shows slightly excessive generalized fast frequency activities of low ?? amplitudes. ??Focal slowing in the t heta Hz range is intermittently present over the central and right parasaggital ?? regions, where amplitudes are also i ncreased prominently. ??No abnormal activity occurred with hyperventilation or ?? photic stimulation. ??During the rec ording, the patient fell asleep spontaneously. ??Hypopneic or apneic spells of ?? breathing was observed during sleep. ??The patient monitor was unremarkable. Micheal Lewis (Signature date Jun 2003 12:12) Procedure Note Jos Lewis M.D. - 12/04/2017Formatting o f this note might be different from the original. 25 Jun 2003 Electroencephalography Fin al Report Referring Physician: Tyra Schaffer [id number] Date: 25 Jun 2003 EEG Shoe Repairer: Micheal Lewis [phone] Clinical Problem: Seizures CLINICAL INTERPRETATION: The EEG shows a moderate degree of slowing and increased amplitude over the central and right parasaggital regions. These findings wo uld be consistent with history of previous craniotomy and lesion affecting the regions. Background EEG shows slightly excessive generalized fast frequency activities, which is often a medication effect. No epileptiform discharges are seen throughout the record. Hypopneic or apneic spells were observed during sleep. EEG CLASSIFICATION: Dysrhythmia gr 2, A symmetry gr. 1, increased central and right parasaggital regions (awake and asleep); patient monitor. REPORT: The recording during wakefulnes s shows slightly excessive generalized fast frequency activities of low amplitudes. Focal slowing in the theta Hz range is intermittently present over the central and right parasaggital regions, where amplitudes are also incr eased prominently. No abnormal activity occurred with hyperventilation or photic stimulation. During the recordin g, the patient fell asleep spontaneously. Hypopneic or apneic spells of breathing was observed during sleep. Th e patient monitor was unremarkable. Micheal Lewis (Signature date Jun 2003 12:12) Tyra Schaffer M.D. NEUROLOGY ORDERABLES Performing Organization Address City/State/ZIP Code Phon e Number [facility] [address] [place] [address], U SA MR Brain without and with IV Contrast (06/25/2003 7:31 AM ASTRONOMY PROFESSOR) Anatomical Region Laterality Modality Head, Brain N/A Magnetic Resonance Specimen (Source) Anatomical Collection Method Collection Time Re ceived Time Location / / Volume Laterality 06/25/2003 7:31 AM ASTRONOMY PROFESSOR Narrative 06/25/2003 8:38 AM ASTRONOMY PROFESSOR 25-Jun-2003 07:31:00 ??Exam: MRI Hd wo&w Indications: mri head w/wo jonathon^s/p absce ss ORIGINAL REPORT - 25-Jun-2003 08:38:00 Head MRI without and with contrast, comp ared to 10-21-02. No significant change. PO changes right frontal craniotomy with partial resection of the right frontal lobe (per history of an abscess). Mild amou nt of foci of high T2 signal in the sade ventricular and deep cortical white matter, most consistent with small vessel ischemia and degenerative changes. Small polyp or retention cyst left maxillary sinus. Remainder is negative. Ind: 117.200 ?? Dia.450 ?? Franci Starks MD [phone] ([id number]) ?? I have reviewed the films/images and agr ee with the above interpretation. Electronically signed by: ?? Lizzette Varela M.D. [phone] 25-Jun-2003 08:36 Procedure Note Keila Varela M.D. - 11/23/2017Fo rmatting of this note might be different from the original. 25-Jun-2003 07:31:00 Exam: MRI Hd wo&w Indications: mri head w/wo jonathon^s/p absce ss ORIGINAL REPORT - 25-Jun-2003 08:38:00 Head MRI without and with contrast, comp ared to 303. No significant change. PO changes right frontal craniotomy with partial resection of the right frontal lobe (per history of an abscess). Mild amount of foci of high T2 signal in the periventricular an d deep cortical white matter, most consistent with small vessel ischemia and degenerative changes. Small polyp or retention cyst left maxillary sinus. Remainder is negative. Ind: 117.200 Dia.450 Franci Starks MD [phone] ([id number]) I have reviewed the films/images and agr ee with the above interpretation. Electronically signed by: Lizzette Varela M.D. [phone] 25-Jun-2003 08:36 Fede Castellanos M.D. IMMike MRI PROCEDURES documented in this encounter Visit Diagnoses Not on filedocumented in this encounter
--- OUTSIDE RECORDS SUMMARY | 2022-03-31 20:38 | XMS_ITS | Encounter Summary ---
:1940 Author Organization [facility] Address [address] [place] [address] Care Team Providers Name Role Phone Unavailable Primary Care Provider Unavailable Encounter Details Date Type Department Care Team Description 06/16/2002 Hospital Encounter HX NO MAPPING Social History [...] More than 4 times per year 02/14/2019 hinduism services? Do you belong to any clubs [...] Laboratory Medicine Mehrdad Lazcano APRN, C.N.P. [address] [place] [address] 04/04/2022 Appointment Cardiovascular Disease Mehrdad Lazcano APRN, C.N.P. [address] [place] [address] 04/05/2022 Ancillary Procedure Cardiovascular Disease Kayla Heredia M.D. [address] [place] [phone] 04/05/2022 Appointment Cardiovascular Disease Jessa Heredia M.D. [address] [place] [phone] 04/12/2022 Clinical Communication Admitting/Central Scheduling 04/15/2022 Comprehensive Visit Cardiovascular Disease Kayla Heredia M.D. [address] [place] [phone] documented as of this encounter Visit Diagnoses Not on filedocumented in this encounter
--- OUTSIDE RECORDS SUMMARY | 2022-03-31 20:38 | XMS_ITS | Encounter Summary ---
:1940 Author Organization [facility] Address [address] [place] [address] Care Team Providers Name Role Phone Unavailable Primary Care Provider Unavailable Encounter Details Date Type Department Care Team Description 07/29/2003 - Hospital Encounter HX RST SLEEP FLOOR Shivam, 08/05/2003 PRACTICE Juan Pablo Purdy M.D. [address] [place] [address] Social History Tobacco Use Types Packs/Day Years Used Date Smoking Tobacco: Never Assessed Social Isolation Answer Date Recorded In a typical week, how many times do you Once a week 02/14/2019 talk on the phone with family, friends, or neighbors? How often do you get together with friends More than three t imes a week 02/14/2019 or relatives? How often do you attend hinduism or More than 4 times per year 02/14/2019 episcopalian services? Do you belong to any clubs or No 02/14/2019 organizations such as hinduism groups, unions, fraternal or athletic groups, or [...] minutes do you engage in exercise at is 60 min 02/14/2019 level? Financial Resource [...] Laboratory Medicine Mehrdad Lazcano APRN, C.N.P. [address] [place] [address] 04/04/2022 Appointment Cardiovascular Disease Mehrdad Lazcano APRN, C.N.P. [address] [place] [address] 04/05/2022 Ancillary Procedure Cardiovascular Disease Kayla Heredia M.D. [address] [place] [phone] 04/05/2022 Appointment Cardiovascular Disease Jessa Heredia M.D. [address] [place] [phone] 04/12/2022 Clinical Communication Admitting/Central Scheduling 04/15/2022 Comprehensive Visit Cardiovascular Disease Kayla Heredia M.D. [address] [place] [phone] documented as of this encounter Visit Diagnoses Not on filedocumented in this encounter
--- OUTSIDE RECORDS SUMMARY | 2022-03-31 20:38 | XMS_ITS | Encounter Summary ---
:1940 Author Organization [facility] Address [address] [place] [address] Care Team Providers Name Role Phone Unavailable Primary Care Provider Unavailable Encounter Details Date Type Department Care Team Description 02/14/2019 Hospital Encounter Department of Marilin, Achalasi a; Radiology, [place] [facility]ar, Cough With H emorrhage; [facility]; [place] Gastroesophageal Reflux Dise ase Without Esophagitis; [address] [facility] Laparoscopic Myotomy For Ach alasia Status Post; [place], [place] Chronic Kidney Disease Stage 4 Glomerular Filtration Rate 15-29 ([facility]) [phone] Social History Tobacco Use Types Packs/Day Years [...] More than 4 times per year 02/14/2019 bahai services? Do you belong to any clubs [...] warfarin (COUMADIN) 2 mg 1 mg on //Sun 0 12/20 tablet and 2 mg on [...] Laboratory Medicine Mehrdad Lazcano APRN, C.N.P. [address] [place] [address] 04/04/2022 Appointment Cardiovascular Disease Mehrdad Lazcano APRN, C.N.P. [address] [place] [address] 04/05/2022 Ancillary Procedure Cardiovascular Disease Kayla Heredia M.D. [address] [place] [phone] 04/05/2022 Appointment Cardiovascular Disease Jessa Heredia M.D. [address] [place] [phone] 04/12/2022 Clinical Communication Admitting/Central Scheduling 04/15/2022 Comprehensive Visit Cardiovascular Disease Kayla Heredia M.D. [address] [place] [phone] documented as of this encounter Procedures Procedure Name Priority Date/Time Associated Comments Diagnosis DX CHEST AP OR PA RAD - Routine 02/14/2019 10:01 Achalasia Results for this AND LATERAL 2 (most inpatients AM CDT Cough With procedure are in VIEWS and all Hemorrhage the results outpatients) Shortness Of section. Breath Dysphagia Gastroesophageal Reflux Disease Without Esophagitis Laparoscopic Myotomy For Achalasia Status Post Chronic Kidney Disease Stage 4 Glomerular Filtration Rate 15-29 (HCC) documented in this encounter Results DX Chest AP or PA and Lateral 2 Views (02/14/2019 10:01 AM CDT) Anatomical Region Laterality Modality Chest, Thoracic RST LOS, Thoracic ARZ LOS, Thoracic N/A Digital Radiography FLA LOS Specimen (Source) Anatomical Collection Method Collection Time Re ceived Time Location / / Volume Laterality 02/14/2019 10:18 AM CDT Impressions 02/14/2019 10:22 AM CDT Small bilateral pleural effusions with associated atelectasis. Additional bibasal opacities, left great er than right, which may be due to infection or aspiration given the histor y of achalasia. Indeterminate small nodular opacity projected over the left lower lung, possibly nodular atelectasis. CT may be helpful for furth er assessment. Mildly enlarged cardiac silhouette with borderline pulmonary izzy ous hypertension. Calcified and tortuous aorta. Prominent central pulmonary arter ies. Mild anterior wedging and loss of height of a few mid to lower thoracic ve rtebral bodies. Narrative 02/14/2019 10:22 AM CDT EXAM: ??DX CHEST AP OR PA AND LATERAL 2 VIEWS Procedure Note John Root M.D. - 02/14/2019Formattin g of this note might be different from the original. EXAM: DX CHEST AP OR PA AND LATERAL 2 EWS IMPRESSION: Small bilateral pleural effusions with a ssociated atelectasis. Additional bibasal opacities, left great er than right, which may be due to infection or aspiration given the histor y of achalasia. Indeterminate small nodular opacity projected over the left lower lung, possibly nodular atelectasis. CT may be helpful for furth er assessment. Mildly enlarged cardiac silhouette with borderline pulmonary izzy ous hypertension. Calcified and tortuous aorta. Prominent central pulmonary arter ies. Mild anterior wedging and loss of height of a few mid to lower thoracic ve rtebral bodies. Darwin Giles IMG DIAGNOSTIC IMAGING PROCEDURES documented in this encounter Visit Diagnoses Diagnosis Achalasia Cough With Hemorrhage Shortness Of Breath Dysphagia Gastroesophageal Reflux Disease Without Esophagitis Laparoscopic Myotomy For Achalasia Statu s Post Chronic Kidney Disease Stage 4 Glomerula r Filtration Rate 15-29 (HCC) documented in this encounter
--- OUTSIDE RECORDS SUMMARY | 2022-03-31 20:38 | XMS_ITS | Encounter Summary ---
:1940 Author Organization [facility] Address [address] [place] [address] Care Team Providers Name Role Phone Unavailable Primary Care Provider Unavailable Reason for Visit Reason Onset Date Comments Esophageal 12/14/2018 pre orders Encounter Details Date Type Department Care Team Description 12/14/2018 Clinical Division of Devaughn Werner (pre Communication Gastroenterology in [place], orders) [place], [place] Trinh, Ph.D. [address] [place] [phone] Social History Tobacco Use Types Packs/Day Years Used Date Smoking Tobacco: Never Social Isolation Answer Date Recorded In a typical week, how many times do you Once a week 02/14/2019 talk on the phone with family, friends, or neighbors? How often do you get together with friends More than three t imes a week 02/14/2019 or relatives? How often do you attend gnosticist or More than 4 times per year 02/14/2019 yazdanism services? Do you belong to any clubs or No 02/14/2019 organizations such as gnosticist groups, unions, fraternal or athletic groups, or [...] Laboratory Medicine Mehrdad Lazcano APRN, C.N.P. [address] [place] [address] 04/04/2022 Appointment Cardiovascular Disease Mehrdad Lazcano APRN, C.N.P. [address] [place] [address] 04/05/2022 Ancillary Procedure Cardiovascular Disease Kayla Heredia M.D. [address] [place] [phone] 04/05/2022 Appointment Cardiovascular Disease Jessa Heredia M.D. [address] [place] [phone] 04/12/2022 Clinical Communication Admitting/Central Scheduling 04/15/2022 Comprehensive Visit Cardiovascular Disease Kayla Heredia M.D. [address] [place] [phone] documented as of this encounter Visit Diagnoses Not on filedocumented in this encounter
--- OUTSIDE RECORDS SUMMARY | 2022-03-31 20:38 | XMS_ITS | Encounter Summary ---
:1940 Author Organization [facility] Address [address] [place] [address] Care Team Providers Name Role Phone Harish Silver MD Primary Care Provider Encounter Details Date Type Department Care Team Description 03/30/2022 Orders Only [facility] Sebastian Mohan MD [phone] [place] [address] [place], [place] [phone] (Wo rk) Social History Tobacco Use Types Packs/Day Years Used Date Smoking Tobacco: Never Alcohol Use Standard Drinks/Week Comments No 0 (1 standard drink = 0.6 oz pure alcoho l) Sex Assigned at Date Recorded Not on file documented as of this encounter Plan of Treatment Not on filedocumented as of this encounter Procedures Procedure Name Priority Date/Time Associated Diagnosis Comme nts HEMATOLOGY Routine 03/30/2022 Results for thi s procedure are in the resu lts section. CHEMISTRY Routine 03/30/2022 Results for thi s procedure are in the resu lts section. documented in this encounter Results (ABNORMAL) Spectrae Chemistry (03/30/2022) [facility] gist Method Time Signature BUN 76 (H) 6 - 19 [facility] mg/dL [facility] Creatinine 3.60 (H) 0.60 - [facility] 1.30 mg/dL [facility] BUN/Creatinine 21.1 (H) 10.0 - [facility] Ratio 20.0 [facility] Sodium 138 136 - 145 [facility] mEq/L [facility] Potassium 3.5 3.5 - 5.1 [facility] mEq/L [facility] Chloride 100 96 - 108 [facility] mEq/L [facility] Bicarbonate 34 (H) 20 - 31 [facility] (CO2) mEq/L [facility] Comment: Please note change in reference range. Calcium 8.5 (L) 8.7 - 10.4 mg/dL [facility] Comment: Please note change in reference range. Corrected Calcium 9.1 8.7 - 10.4 mg/dL [facility] S PECTRA [facility] Comment: Corrected Calcium is not equivalent to m easured Ionized Calcium. Phosphorus 3.6 2.6 - 4.5 mg/dL [facility] Calcium Phosphorus Product 31 0 - 54 [facility] Calcium Phosporus Product, Cor 33 0 - 54 [facility] Albumin 3.3 (L) 3.5 - 5.2 g/dL [facility] Iron 58 45 - 160 mcg/dL [facility] UIBC 238 155 - 355 mcg/dL [facility] TIBC 296 185 - 515 mcg/dL [facility] Iron Saturation (TSat) 20 20 - 55 % [facility] SPE CTRA [facility] Specimen (Source) Anatomical Collection Method Collection Time Re ceived Time Location / / Volume Laterality 03/30/2022 03/31/2022 2:37 PM CDT Narrative [facility] - 03/31/2022 Unless otherwise specified, test(s) performed at: [facility], [address] [place] [address], [place] [address] INFECTION PREVENTIONIST: Dariel Doyle M.D., Ph.D For any questions, please call customer service at FREQUENCY:MONTHLY Resulting Agency Comment Specimen source: Serum Sebastian Charles MD LAB BLOOD ORDERABLES Performing Organization Address City/State/ZIP Code Phon e Number [facility] (ABNORMAL) HEMATOLOGY (03/30/2022) [facility] gist Method Time Signature WBC 6.97 4.80 - [facility] 10.80 [facility] 1000/mcL RBC 4.06 (L) 4.70 - [facility] 6.10 [facility] mill/mcL Hemoglobin 13.4 (L) 14.0 - [facility] 18.0 g/dL [facility] Hemoglobin x 3 40.2 (L) 42.0 - [facility] 54.0 % [facility] Hematocrit 40.2 (L) 42.0 - [facility] 52.0 % [facility] MCV 99 80 - 100 [facility] fl [facility] MCH 33.1 (H) 27.0 - [facility] 31.0 pg [facility] MCHC 33.4 30.0 - [facility] 36.0 g/dL [facility] RDW 16.1 (H) 11.5 - [facility] 14.5 % [facility] Neutrophils 71.1 40.0 - [facility] 75.0 % [facility] Lymphocytes 8.8 (L) 19.0 - [facility] Relative 48.0 % [facility] Monocytes 6.9 3.0 - 10.0 [facility] % [facility] Eosinophils 10.8 (H) 0.0 - 7.0 [facility] Relative % [facility] Basophils 0.5 0.0 - 1.5 [facility] Relative % [facility] JUAN ANTONIO 1.8 0.0 - 4.0 [facility] % [facility] Specimen (Source) Anatomical Collection Method Collection Time Re ceived Time Location / / Volume Laterality 03/30/2022 03/31/2022 8:28 AM CDT Narrative [facility] - 03/31/2022 Unless otherwise specified, test(s) performed at: [facility], [address] [place] [address], [place] [address] INFECTION PREVENTIONIST: Dariel Doyle M.D., Ph.D For any questions, please call customer service at FREQUENCY:MONTHLY Resulting Agency Comment Specimen source: Blood Sebastian Chalres MD LAB BLOOD ORDERABLES Performing Organization Address City/State/ZIP Code Phon e Number [facility] documented in this encounter Visit Diagnoses Not on filedocumented in this encounter Care Teams Industrial Mechanic Relationship Specialty Start Date End Date Harish Silver MD PCP - General 05/17/19 [address] [place] [id number] documented as of this encounter
--- OUTSIDE RECORDS SUMMARY | 2022-03-31 20:38 | XMS_ITS | Encounter Summary ---
:1940 Author Organization [facility] Er Address [address] [place] [address] Care Team Providers Name Role Phone Unavailable Primary Care Provider Unavailable Reason for Referral Outpatient (Routine) - Closed Specialty Diagnoses / Referred By Referred To Cont act Procedures Contact Gastroenterology and [facility] Hepatology Laura GranadosB.S. [address] [place] [address] Referral ID Status Reason Start Date Expiration Date Visits Requ ested Visits Authorized [id number] Closed 02/14/2019 02/14/2020 1 1 utpatient (Routine) - Closed Specialty Diagnoses / Procedures Referred By Contact Refer red To Contact Pulmonary Medicine Diagnoses Achalasia Cough With Hemorrhage Shortness Of Breath Dysphagia Gastroesophageal Reflux Disease Without Esophagitis Laparoscopic Myotomy For Achalasia Status Post Chronic Kidney Disease Stage 4 Glomerular Filtration Rate 15-[address] ([facility]) [facility] Laura GranadosB[facility] [address] [place] [address] Referral ID Status Reason Start Date Expiration Date Visits V isits Requested Authorized [id number] Closed Specialty 02/14/2019 02/14/2020 1 1 Services Required utpatient (Routine) - Closed Specialty Diagnoses / Procedures Referred By Contact Refer red To Contact Nephrology and Diagnoses Achalasia Cough With Hemorrhage Shortness Of Breath Dysphagia Gastroesophageal Reflux Disease Without Esophagitis Laparoscopic Myotomy For Achalasia Status Post Chronic Kidney Disease Stage 4 Glomerular Filtration Rate 15-[address] ([facility]) [facility] Trisha GranadosSBailey [address] [place] [address] Referral ID Status Reason Start Date Expiration Date Visits Requ ested Visits Authorized [id number] Closed 02/14/2019 02/14/2020 1 1 utpatient (Routine) - Closed Specialty Diagnoses / Procedures Referred By Contact Refer red To Contact Diagnoses Guillermo Ayers M.D., [facility] Procedures EGD (EsophagoGastroDuodenoscopy) Restricted Ph.D. [address] [place] [address] Referral ID Status Reason Start Date Expiration Date Visits Requ ested Visits Authorized [id number] Closed 12/17/2018 12/17/2019 1 1 Outpatient (Routine) - Closed Specialty Diagnoses / Procedures Referred By Contact Refer red To Contact Diagnoses Guillermo Ayers M.D., [facility] Procedures ECG 12 Lead [place] EKG 12 LEAD TRACE ONLY [place] EKG I&R ONLY Ph.D. [address] [place] [address] Referral ID Status Reason Start Date Expiration Date Visits Requ ested Visits Authorized [id number] Closed 12/17/2018 12/17/2019 1 1 Outpatient (Routine) - Closed Specialty Diagnoses / Procedures Referred By Contact Refer red To Contact Thoracic Surgery Diagnoses MattiealasiGuillermo Roberto M.D., Ph.D. [address] [place] [address] Referral ID Status Reason Start Date Expiration Date Visits Requ ested Visits Authorized [id number] Closed 12/17/2018 12/17/2019 1 1 Outpatient (Routine) - Closed Specialty Diagnoses / Procedures Referred By Contact Refer red To Contact Diagnoses Guillermo Ayers M.D., [place] Procedures [place] Esophagram [place] XR ESOPHAGUS HC XR ESOPHAGUS [place] XR ESOPHAGUS Ph.D. [address] [place] [address] Referral ID Status Reason Start Date Expiration Date Visits Requ ested Visits Authorized [id number] Closed 12/17/2018 12/17/2019 1 1 Reason for Visit Reason Comments Dysphasia Esoph Appointment Request (Routine) - Closed Specialty Diagnoses / Referred By Contact Referred To Procedures Contact Gastroenterology and [facility] Hepat[facility] Trinh [address] [place] [address] Referral ID Status Reason Start Date Expiration Date Visits Requ ested Visits Authorized [id number] Closed 12/14/2018 12/14/2019 1 Encounter Details Date Type Department Care Team Description 02/14/2019 Comprehensive Visit Division of Chakrabort Achalasi a (Primary Dx); Gastroenterology in y, Cough Wi th Hemorrhage; [place], [place] Subhankar, Shortness Of Breath; [address] [place] [address] M.B.B.S. Dysphagia; [place], [place] Gastroesophage al Reflux Disease Without Esophagitis; [phone] Laparoscopic Myotomy For Ach alasia Status Post; [phone] Chronic Kidney Disease Stage 4 Glomerular Filtration Rate 15-29 (HCC) Social History Tobacco Use Types Packs/Day Years [...] Sign Reading Time Taken Comments Blood Pressure 120/87 02/14/2019 7:26 AM CDT Pulse 82 02/14/2019 7:26 AM CDT Temperature - - Respiratory Rate - - Oxygen Saturation - - Inhaled Oxygen Concentration - - Weight 87.6 kg (193 lb 2 oz) 02/14/2019 7:26 AM CDT Height 176.9 cm (5' 9.65) 02/14/2019 7:26 AM CDT Body Mass Index 27.99 02/14/2019 7:26 AM CDT documented in this encounter Progress Notes Erica Dover R.N. - 02/14/2019 7:40 AM CDT INFORMATION DISCUSSED Spoke with Mr. Castro,he has had problems swallowing for 50 years at which time he was diagnosed with Achalasia. He has had surgery in the past for this. He is now having a return of swallowing problems with solid foods. This is occurring at random times. He may be able to eat a hamburger for lunch and have no problems, then for his evening meal he could not even get a hamburger down at all. He cannot tolerate anything cold at all. He has been unable to sleep laying down, he has to sleep in a recliner.He has had to go in to get food removed. He has not been to the ED however in the past 2 years. He recently has had Afib and has been placed on coumadin. He will talk to his care provider who manages his coumadin if this will need to be held prior to an endoscopy. He also has had kidney problems with some failure for the past 10 years. For this reason, he has to be very careful regarding what medications that he takes. He will come fasting to his first appointment PLAN Disposition/Recommendation: self-care appropriate at this time yes Education: patient/caller able to teach back Caller agreeable to plan of care: yes The following references were used: nursing clinical judgement Date of appt.: 02/14 Are you diabetic? ??No Diagnosis or Indication: ??Dysphagia, achalasia Are you taking any blood thinners such as Warfarin/Coumadin or anti-platelet agents such as Clopidogrel/Plavix (this excludes aspirin)? ??Yes, Warfarin 2 mg ( he will notify his provider to manage ) What is your height and weight? Height 5' 8 ??Weight 191 lb Is BMI over 40? ??No Are you currently taking narcotic medications for chronic pain? ??No Have you had trouble with anesthesia or sedation in the past? ??No Have you had head or neck surgery? ??Yes, brain surgery here at [facility] Do you have a continuous infusion device or on continuous oxygen? No documented in this encounter Consult Notes Darwin Gaston M.B.B.S., Ph.D. - 02/14/2019 7:40 AM CDT SUBJECTIVE Chief Complaint/Reason for Visit dysphagia, cough and hemoptysis Chief Complaint Patient presents with ??? Dysphasia Esoph David Castro is a 78 y.o. male who presents for evaluation of the following concerns: History of Present Illness: This is a very pleasant 78-year-old man who reports a history of being diagnosed with achalasia in 1962. In 1968 he had what sounds from his description as myotomy. Prior tosurgery he was having dysphagia to solids and liquids. After surgery he did well for a few years buthe always recalls having to be careful with what he was eating and eating slowly. He had to undergo endoscopy for removing food impacted in his esophagus about 20-25 times. He had an upper endoscopy here in 2001 that revealed a large ulcer at the esophagogastric junction. Biopsies of that showed acuteulceration. 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 Subsequent endoscopies including once done here as well as a last endoscopy that we have a report of any scanned into our records done [id number] revealed no esophagitis. All these endoscopies noted that his esophagus was dilated, peristalsis was poor but the GE junction was widely open. The did not find any food or water in the esophagus. He reports that about 2 to 3 times a week when he is eating usually in the middle of the meal he feels like things go down up until the epigastric region and then just get stuck. Sometimes it will pass on its own but other times he will induce vomiting and then bring up what he has just eaten. It is never acidic in taste and he in fact he feels that he could res follow it back. After he has vomited then he does not go on with the meal but rather just sits down and and waits for him to feel comfortable. He denies any stacking sensation, denies any heartburn or diurnal or nocturnal regurgitation, painwith swallowing, chest pain or chest pressure. He does not recall that he needs to get up and walk around or stretch himself when he feels the food getting stuck. He does not have any hematemesis or nausea. He does not regurgitate food other than within 5 minutes after eating. He never notices food particles on his pillow when he wakes up. The vomit does not contain any excessive mucus or foamy material. His weight has been stable. In 2001 he was advised to start taking omeprazole which she had beentaking up until 2-3 years back but then it was stopped likely because of his chronic kidney disease stage 4. Of note he mentions that he cannot tolerate any cold liquids so he only drinks lukewarm water. He reports that for the last 6 weeks he has been coughing and bringing up glob of blood which is either bright red or sometimes dark red. Most the time it is dark red. The cough usually happens in the morning and then he is fine. He has also noticed for the last 3-4 weeks that he is more short of breath. For instance he could walk at 5 miles an hour on the treadmill but he has been only able to walk about 3 miles an hour and then gets winded. He also gets winded if he climbs a flight of stairs whichwas not the case 3 months back. He walks nearly 15-20 miles a day and has continued to do that even in the last few weeks. He has a history of atrial fibrillation and takes warfarin and propafenone forthat. He had a stress echocardiogram in August done at outside that was negative for any stress induced ischemia. His ejection fraction at that time was 65%. He did develop symptoms during the stress test. He has not had any imaging of his chest or abdomen recently. He smoked for a year when he was in the [employer] in 1961 and then stopped. He also at that time stop drinking alcohol. He denies chewing tobacco. Usually sleeps with his head elevated and sometimes if he feels the regurgitation is bad then he sleeps on a recliner. He has sleep apnea and uses CPAP regularly. He also has stage 4 chronic kidney disease that was diagnosed about 10 years ago. He has hypertension. His last colonoscopy was in 2014 and was reportedly negative. This was done outside. Diagnosis Plan 1. Achalasia Esophageal Manometry FL Esophagram Thoracic Surgery - General consult (clinic) ECG 12 Lead EGD (EsophagoGastroDuodenoscopy) Restricted Nephrology and Hypertension - Chronic kidney disease consult (clinic) Renal Function Panel CBC with Differential Uric Acid Urinalysis with Microscopic: Urine, Clean Catch Microalbumin, Random, Urine 25-Hydroxyvitamin D2 and D3 PTH (Parathyroid Hormone) US Kidneys Bilateral with Bladder DX Chest AP or PA and Lateral 2 Views Pulmonary Medicine - General consult (clinic) Pulmonary Function Tests Alkaline Phosphatase, Total and Isoenzymes Prothrombin Time (PT/INR) 2. Cough With Hemorrhage Nephrology and Hypertension - Chronic kidney disease consult (clinic) Renal Function Panel CBC with Differential Uric Acid Urinalysis with Microscopic: Urine, Clean Catch Microalbumin, Random, Urine 25-Hydroxyvitamin D2 and D3 PTH (Parathyroid Hormone) US Kidneys Bilateral with Bladder DX Chest AP or PA and Lateral 2 Views Pulmonary Medicine - General consult (clinic) Pulmonary Function Tests Alkaline Phosphatase, Total and Isoenzymes Prothrombin Time (PT/INR) 3. Shortness Of Breath Nephrology and Hypertension - Chronic kidney disease consult (clinic) Renal Function Panel CBC with Differential Uric Acid Urinalysis with Microscopic: Urine, Clean Catch Microalbumin, Random, Urine 25-Hydroxyvitamin D2 and D3 PTH (Parathyroid Hormone) US Kidneys Bilateral with Bladder DX Chest AP or PA and Lateral 2 Views Pulmonary Medicine - General consult (clinic) Pulmonary Function Tests Alkaline Phosphatase, Total and Isoenzymes Prothrombin Time (PT/INR) 4. Dysphagia Nephrology and Hypertension - Chronic kidney disease consult (clinic) Renal Function Panel CBC with Differential Uric Acid Urinalysis with Microscopic: Urine, Clean Catch Microalbumin, Random, Urine 25-Hydroxyvitamin D2 and D3 PTH (Parathyroid Hormone) US Kidneys Bilateral with Bladder DX Chest AP or PA and Lateral 2 Views Pulmonary Medicine - General consult (clinic) Pulmonary Function Tests Alkaline Phosphatase, Total and Isoenzymes Prothrombin Time (PT/INR) 5. Gastroesophageal Reflux Disease Without Esophagitis Nephrology and Hypertension - Chronic kidney disease consult (clinic) Renal Function Panel CBC with Differential Uric Acid Urinalysis with Microscopic: Urine, Clean Catch Microalbumin, Random, Urine 25-Hydroxyvitamin D2 and D3 PTH (Parathyroid Hormone) US Kidneys Bilateral with Bladder DX Chest AP or PA and Lateral 2 Views Pulmonary Medicine - General consult (clinic) Pulmonary Function Tests Alkaline Phosphatase, Total and Isoenzymes Prothrombin Time (PT/INR) 6. Laparoscopic Myotomy For Achalasia Status Post Nephrology and Hypertension - Chronic kidney disease consult (clinic) Renal Function Panel CBC with Differential Uric Acid Urinalysis with Microscopic: Urine, Clean Catch Microalbumin, Random, Urine 25-Hydroxyvitamin D2 and D3 PTH (Parathyroid Hormone) US Kidneys Bilateral with Bladder DX Chest AP or PA and Lateral 2 Views Pulmonary Medicine - General consult (clinic) Pulmonary Function Tests Alkaline Phosphatase, Total and Isoenzymes Prothrombin Time (PT/INR) 7. Chronic Kidney Disease Stage 4 Glomerular Filtration Rate 15-[address] ([facility]) Nephrology and Hypertension- Chronic kidney disease consult (clinic) Renal Function Panel CBC with Differential Uric Acid Urinalysis with Microscopic: Urine, Clean Catch Microalbumin, Random, Urine 25-Hydroxyvitamin D2 and D3 PTH (Parathyroid Hormone) US Kidneys Bilateral with Bladder DX Chest AP or PA and Lateral 2 Views Pulmonary Medicine - General consult (clinic) Pulmonary Function Tests Alkaline Phosphatase, Total and Isoenzymes Prothrombin Time (PT/INR) Review of Systems ENT: Positive for difficulty hearing. Respiratory: Positive for coughing up blood. Cardiovascular: Positive for swelling in the legs or feet and rapid or fluttering heart beat. Gastrointestinal: Positive for difficulty swallowing. The following systems were negative: Constitutional, Skin, Eyes, , Hematologic, Musculoskeletal, Neuro, Psych OBJECTIVE Physical Exam Physical Exam he appears well built appears well nourished does not appear to be in any distress. Does not appear to be jaundiced. His mucous membranes are moist. No scleral icterus. No cervical adenopathy. No thyromegaly. Abdomen is soft nontender nondistended. No scars noted on the abdomen. On auscultation he has is systolic murmur that appears to be accentuated with inspiration. Otherwise rate appears to be regular. He has bibasilar inspiratory crackles. No wheezing. He has compression stockings on both legs which he says is put on because of pedal edema. ASSESSMENT / PLAN This is a 78-year-old man with a history of achalasia diagnosed in 1961, he underwent myotomy in 1968. He is presenting with dysphagia to solids and liquids, regurgitation of a non acidic food and liquids happens about 2 to 3 times a week, cough with hemoptysis for the last 6 weeks, shortness of breath for the last 4 weeks. He has a prior history of an esophageal ulcer in 2001, Brunners gland hyperplasia, stage 4 chronic kidney disease, hypertension, atrial fibrillation on warfarin. In order to evaluate his symptoms we will get the following tests 1. He is scheduled to have an esophagram and upper GI endoscopy with anesthesia. 2. Given his history of cough and hemoptysis shortness of breath would like to get a CT scan of his chest. But given his stage 4 kidney disease I would 1st like to get an appointment with nephrology emir might go into renal failure with IV contrast. The meantime will get a chest x-ray. I would also like him to visit with pulmonary. 3. Will get some baseline labs including an INR, PTH, creatinine. He has had other labs that have been done fairly recently and are in Care everywhere. I will see him back after all his test results are complete. The plan was discussed with the patientand with his . The patient was staffed with Dr. Werner. 1. Achalasia 3. Shortness Of Breath 4. Dysphagia 5. Gastroesophageal Reflux Disease Without Esophagitis 6. Laparoscopic Myotomy For Achalasia Status Post 7. Chronic Kidney Disease Stage 4 Glomerular Filtration Rate 15-29 (HCC) Guillermo Werner M.D. - 02/14/2019 7:40 AM CDT SUBJECTIVE Supervisory note for Darwin Gaston. ASSESSMENT / PLAN I agree with the evaluation as written. In addition, I have interviewed this highly interesting patient who sounds like he is status post a thoracic myotomy for achalasia 4 decades ago, who initially actually self-dilated with a Hurst dilator. He has done well, but has had recurrent food impactions. He has had esophageal ulcers here on endoscopy. He now presents with increasing dysphagia, shortness of breath, hemoptysis versus hematemesis. He needs a chest x-ray, likely chest imaging, barium esophagram, and upper endoscopy under anesthesia. We will get input from Renal as he has stage IV renal failure as well. CT CT Job ID: [id number] documented in this encounter Plan of Treatment Upcoming Encounters Date Type Specialty Care Team Description 04/04/2022 Appointment Laboratory Medicine Mehrdad Lazcano APRN, C.N.P. [address] [place] [id number] 04/04/2022 Appointment Cardiovascular Disease Mehrdad Lazcano APRN, C.N.P. [address] [id number] 04/05/2022 Ancillary Procedure Cardiovascular Disease Kayla Heredia M.D. [address] [place] [address] 04/05/2022 Appointment Cardiovascular Disease Jessa Heredia M.D. [address] [place] [address] 04/12/2022 Clinical Communication Admitting/Central Scheduling 04/15/2022 Comprehensive Visit Cardiovascular Disease Kayla Heredia M.D. [address] [place] [address] Scheduled Referrals Name Type Priority Associated Order Schedule Diagnoses Thoracic Surgery - Outpatient Routine Achalasia Expected: General consult (clinic) Referral (Approximate), Expires: 02/15/2020 Nephrology and Outpatient Routine Achalasia 1 Occurrences Hypertension - Chronic Referral Cough With start ing kidney disease consult Hemorrhag e 02/14/2019 until (clinic) Shortness Of 02/14/2022 Breath Dysphagia Gastroesophageal Reflux Disease Without Esophagitis Laparoscopic Myotomy For Achalasia Status Post Chronic Kidney Disease Stage 4 Glomerular Filtration Rate 15-29 (HCC) Pulmonary Medicine - Outpatient Routine Achalasia Expected: General consult (clinic) Referral Cough With , Hemorrhage Expires: Shortness Of 02/14/2022 Breath Dysphagia Gastroesophageal Reflux Disease Without Esophagitis Laparoscopic Myotomy For Achalasia Status Post Chronic Kidney Disease Stage 4 Glomerular Filtration Rate 15-29 (HCC) Gastroenterology and Outpatient Routine Expecte d: Hepatology office visit Referral 01/20 (clinic) (Approximate), Expires: 02/14/2022 documented as of this encounter Results Pulmonary Function Tests (02/20/2019 12:08 PM CDT) P athologist Signature DLCO SINGLE 17.42 ml/(min*mm 02/20/2019 KEN[facility] SENT BREATH POST Hg) 1:52 PM [address] VA SINGLE 4.05 L 02/20/2019 KENNA SENTRY BREATH POST 1:52 PM CDT SUITE [id number] 98.00 % 02/20/2019 KENNA SENT 1:52 PM CDT SUITE [id number] 96.00 % 02/20/2019 [place] 1:52 PM CDT SUITE PulseRest 73.00 1/min 02/20/2019 KENNA SENTRY 1:52 PM CDT SUITE PulseExer 129.00 1/min 02/20/2019 [place] 1:52 PM CDT SUITE EXER TIME 3.00 min 02/20/2019 [place] 1:52 PM CDT SUITE STEP HEIGHT 9.00 Inch 02/20/2019 [place] PRE 1:52 PM CDT SUITE VC MAX POST 2.46 L 02/20/2019 KENNA SENTRY 1:52 PM CDT SUITE PostFEV1 1.76 L 02/20/2019 K[facility]NA SENTRY 1:52 PM CDT SUITE FEV1/FVC POST 71.87 % 02/20/2019 KENNA SENTRY 1:52 PM CDT SUITE PostFVC 2.46 L 02/20/2019 [facility]ENNA SENTRY 1:52 PM CDT SUITE FET POST 6.10 sec 02/20/2019 [facility]NA SENTRY 1:52 PM CDT SUITE PEF POST 8.10 L/s 02/20/2019 [facility] SENTRY 1:52 PM CDT SUITE FEF 25-75 % 1.10 L/s 02/20/2019 [place] POST 1:52 PM CDT SUITE VC MAX PRE 2.50 L 02/20/2019 [facility] SENTRY 1:52 PM CDT SUITE FEV1 1.82 L 02/20/2019 [facility] SENTRY 1:52 PM CDT SUITE FEV1/FVC 73.95 % 02/20/2019 [facility] SENTRY 1:52 PM CDT SUITE MVV 55.36 L/min 02/20/2019 [facility] SENTRY 1:52 PM CDT SUITE FVC 2.47 L 02/20/2019 [facility] SENTRY 1:52 PM CDT SUITE FET PRE 6.00 sec 02/20/2019 [facility] SENTRY 1:52 PM CDT SUITE PEF PRE 6.09 L/s 02/20/2019 [facility] SENTRY 1:52 PM CDT SUITE KHA37-45% 1.30 L/s 02/20/2019 [facility] SENTRY 1:52 PM CDT SUITE FRCPLETH 2.44 L 02/20/2019 [facility] PROVBASE 1:52 PM CDT SUITE RV 1.91 L 02/20/2019 KENNA SENTRY 1:52 PM CDT SUITE TLC 4.40 L 02/20/2019 [facility]ENNA SENTRY 1:52 PM CDT SUITE RV % TLC PRE 43.50 % 02/20/2019 [facility] SENTRY 1:52 PM CDT SUITE VC PRE 2.49 L 02/20/2019 [place] 1:52 PM CDT SUITE SUBSTANCE POST NaN 02/20/2019 [place] 1:52 PM CDT SUITE DOSE POST NaN 02/20/2019 [place] 1:52 PM CDT SUITE % PRED VC MAX 67.22 % 02/20/2019 [place] 1:52 PM CDT SUITE FEV1% 65.60 % 02/20/2019 [facility] SENTRY 1:52 PM CDT SUITE % PRED 98.14 % 02/20/2019 [facility] FEV1/FVC 1:52 PM CDT SUITE FVC% 66.39 % 02/20/2019 NEW SENT 1:52 PM CDT SUITE % PRED PEF 80.62 % 02/20/2019 NEW [facility] 1:52 PM CDT SUITE % PRED FEF 63.82 % 02/20/2019 [facility] SENTRY 25-75% 1:52 PM CDT SUITE PRED VC MAX 3.72 L 02/20/2019 [place] 1:52 PM CDT SUITE PRED FEV 1 2.78 L 02/20/2019 [place] 1:52 PM CDT SUITE PRED FEV1/FVC 75.35 % 02/20/2019 [facility] 1:52 PM CDT SUITE PRED FVC 3.72 L 02/20/2019 [place] 1:52 PM CDT SUITE PRED PEF 7.55 L/s 02/20/2019 [facility] SENT 1:52 PM CDT SUITE PRED FEF 2.03 L/s 02/20/2019 [facility] SENTRY 25-75% 1:52 PM CDT SUITE Specimen (Source) Anatomical Collection Method Collection Time Re ceived Time Location / / Volume Laterality 02/20/2019 12:08 PM CDT Narrative This result has an attachment that is no t available. Darwin Giles PFT ORDERABLES Performing Organization Address City/State/ZIP Code Phon e Number NEW S[place] SUITE NEW [place] SUITE NA ECG 12 Lead (02/15/2019 8:59 AM CDT) P athologist Signature Ventricular Rate 89 BPM MUSE ECG/Min QRSD Interval 178 ms MUSE QT Interval 450 ms MUSE QTC Interval 547 ms MUSE R [place] -41 degrees MUSE T Wave [place] 93 degrees MUSE Specimen Anatomical Collection Method Collection Time Receive d Time (Source) Location / / Volume Laterality 02/15/2019 8:59 AM 201 9 9:16 CDT AM CDT Impressions MUSE - 02/15/2019 9:16 AM CDT Atrial tachycardia with premature ventricular or aberrantly conducted complexes singly and in a series Left axis deviation Left bundle branch block with secondary ST-T abnormalities Prolonged QT When compared with ECG of 21-JUN-2002 10 :38, Significant changes have occurred Narrative This result has an attachment that is no t available. Procedure Note Chava Morillo M.D. - 02/15/2019Fo rmatting of this note might be different from the original. IMPRESSION: Atrial tachycardia with premature ventricular or aberrantly conducted complexes singly and in a series Left axis deviation Left bundle branch block with secondary ST-T abnormalities Prolonged QT When compared with ECG of 21-JUN-2002 10 :38, Significant changes have occurred Guillermo Werner M.D., Ph.D. ECG ORDERABLES Performing Organization Address City/State/ZIP Code Phon e Number MUSE MUSE NA [place] Esophagram (02/15/2019 8:40 AM CDT) Anatomical [...] Guillermo Werner M.D., Ph.D. IMG FLUOROSCOPY PROCEDURES US Kidneys Bilateral with Bladder (02/14/2019 11:31 AM CDT) Anatomical Region Laterality Modality Abdomen, Renal, Ultrasound RST LOS, Ultrasound ARZ LOS, Bila teral Ultrasound Ultrasound FLA LOS Specimen (Source) Anatomical Collection Method Collection Time Re ceived Time Location / / Volume Laterality 02/14/2019 11:36 AM CDT Impressions 02/14/2019 11:39 AM CDT Slightly thin, slightly echogenic renal parenchyma bilaterally with bilateral nonobstructing renal stones. Narrative 02/14/2019 11:39 AM CDT EXAM: US KIDNEYS BILATERAL WITH BLADDER COMPARISON: 06/24/2002 FINDINGS: Right kidney: 9.4 cm Cortical thickness: Thin. ?? Parenchymal echogenicity: Echogenic. Collecting system: No hydronephrosis. Masses: Multiple nonobstructing stones m easuring up to 8 mm. Left kidney: 9.8 cm Cortical thickness: Thin Parenchymal echogenicity: Slightly echog enic Collecting system: No hydronephrosis. Masses: Tiny nonobstructing stones. Bladder: Normal. Procedure Note Rogerio Quinones M.D. - 02/14/2019Formatti ng of this note might be different from the original. EXAM: US KIDNEYS BILATERAL WITH BLADDER COMPARISON: 06/24/2002 FINDINGS: Right kidney: 9.4 cm Cortical thickness: Thin. Parenchymal echogenicity: Echogenic. Collecting system: No hydronephrosis. Masses: Multiple nonobstructing stones m easuring up to 8 mm. Left kidney: 9.8 cm Cortical thickness: Thin Parenchymal echogenicity: Slightly echog enic Collecting system: No hydronephrosis. Masses: Tiny nonobstructing stones. Bladder: Normal. IMPRESSION: Slightly thin, slightly echogenic renal parenchyma bilaterally with bilateral nonobstructing renal stones. Darwin Giles IMG US PROCEDURES (ABNORMAL) Microalbumin, Random, Urine (02/14/2019 10:57 AM CDT) P athologist Signature Microalbumin 101.0 mg/L 02/14/2019 11:27 AM CDT Comment: ----ADDITIONAL INFORMATION---- This test has been modified from the man ufbrockr's instructions. Its performance characteri stics were determined by [facility] in a manner co nsistent with CLIA requirements. This test has not bee n cleared or approved by the U.S. Food and Drug Admin istration. Creatinine 88 mg/dL 02/14/2019 11:27 AM CDT Albumin/Creatinine Ratio 115 (H) <17 mg/g 02/14/2019 11:2 7 AM CDT Specimen Anatomical Collection Method Collection Time Receive d Time (Source) Location / / Volume Laterality Urine (Urine, 02/14/2019 10:57 02/14/2019 Clean Catch) AM CDT 10:57 AM CDT Darwin Giles LAB URINE ORDERABLES Performing Organization Address City/State/ZIP Code Phon e Number [facility] - [address] [place] [id number] 05 [facility] (ABNORMAL) Urinalysis with Microscopic: Urine, Clean Catch (02/14/2019 10:57 AM CDT) Patholo gist Method Time Signature Source Midstream 02/14/2019 10:57 AM CDT Appearance Normal Normal 02/14/2019 11:27 AM CDT Osmolality, U 412 150 - 1150 02/14/2019 mOsm/kg 12:21 PM CDT pH, U 5.4 4.5 - 8.0 02/14/2019 12:21 PM CDT Comment: ----ADDITIONAL INFORMATION---- This test was developed and its performa nce characteristics determined by [facility] in a manner co nsistent with CLIA requirements. This test has not bee n cleared or approved by the U.S. Food and Drug Admin istration. Glucose 2 0 - 15 mg/dL 02/14/2019 11:27 AM CDT Protein, U 25 <26 mg/dL 02/14/2019 11:27 AM CDT Comment: ----ADDITIONAL INFORMATION---- On 02/14/2017 the total protein assay me thod changed resulting in approximately a 15% increase in prote in values. Protein/Osmolality 0.61 (H) <0.42 Ratio 02/14/2019 12:21 PM CDT Comment: ----ADDITIONAL INFORMATION---- On 02/14/2017 the total protein assay me thod changed resulting in approximately a 15% increase in prote in values. Predicted 24 Hr Protein 585 mg/24 h 02/14/2019 12:21 PM CDT Predicted Range 186-1843 mg/24 h 02/14/2019 12:21 PM CDT Hemoglobin, QL Negative Negative 02/14/2019 12:15 PM CDT Specimen Anatomical Collection Method Collection Time Receive d Time (Source) Location / / Volume Laterality Urine (Urine, 02/14/2019 10:57 02/14/2019 Clean Catch) AM CDT 10:57 AM CDT Darwin RicoS. LAB URINE ORDERABLES Performing Organization Address [facility] Phon e Number [facility] - [address] (ABNORMAL) Prothrombin Time (PT/INR) (02/14/2019 10:20 AM CDT) [facility] Method Time Signature Prothrombin 15.1 (H) 9.4 - 12.5 02/14/2019 Time, P sec 10:58 AM CDT INR 1.4 0.9 - 1.1 02/14/2019 10:58 AM CDT Comment: ----ADDITIONAL INFORMATION---- Standard intensity warfarin therapeutic range: 2.0 to 3.0 ?? High intensity warfarin therapeutic rang e: 2.5 to 3.5 Specimen Anatomical Collection Method Collection Time Receive d Time (Source) Location / / Volume Laterality Blood (Blood, 02/14/2019 10:20 02/14/2019 Venous) AM CDT 10:41 AM CDT Darwin SanchezBBaileySBailey LAB BLOOD ADD-ON Performing Organization Address [facility] Phon e Number [facility] - [address] (ABNORMAL) Alkaline Phosphatase, Total and Isoenzymes (02/14/2019 10:20 AM CDT) [facility] gist Method Time Signature Alkaline 302 (H) 40 - 129 02/14/2019 Phosphatase, U/L 12:03 PM CDT S Liver 1 % 67.6 27.8 - 76.3 02/15/2019 % 12:05 PM CDT Liver 1 204.2 (H) 16.2 - 70.2 02/15/2019 IU/L 12:05 PM CDT Liver 2 % 14.7 (H) 0.0 - 8.0 % 02/15/2019 12:05 PM CDT Liver 2 44.4 (H) 0.0 - 5.8 02/15/2019 IU/L 12:05 PM CDT Bone % 17.7 (L) 19.1 - 67.7 02/15/2019 % 12:05 PM CDT Bone 53.5 (H) 12.1 - 42.7 02/15/2019 IU/L 12:05 PM CDT Intestine % 0.0 0.0 - 20.6 02/15/2019 % 12:05 PM CDT Intestine 0.0 0.0 - 11.0 02/15/2019 IU/L 12:05 PM CDT Placental NotPresent Not present 02/15/2019 12:05 PM CDT Specimen Anatomical Collection Method Collection Time Receive d Time (Source) Location / / Volume Laterality Blood (Blood, 02/14/2019 10:20 02/14/2019 Venous) AM CDT 10:41 AM CDT Narrative [facility] - [facility] - 02/15/2019 12:05 PM CDT Specimen Information: Specimen ID: [id number] Specimen Type: Blood Specimen Collection Start Date: 02/15/20 19 10:20 AM Specimen Received Date: 02/14/2019 10:41 AM Specimen ID: [id number] Specimen Type: Blood Specimen Collection Start Date: 02/15/20 19 10:20 AM Specimen Received Date: 02/14/2019 11:22 AM Darwin Giles LAB BLOOD NON ADD-ON Performing Organization Address City/State/ZIP Code Phon e Number [facility] - [address] [place], [place] [address] [facility] (ABNORMAL) PTH (Parathyroid Hormone) (02/14/2019 10:20 AM CDT) Analysis Performed At Patho logist Time Signature Parathyroid 103 (H) 15 - 65 02/14/2019 Hormone (PTH), S pg/mL 12:03 PM CDT Specimen Anatomical Collection Method Collection Time Receive d Time (Source) Location / / Volume Laterality Blood (Blood, 02/14/2019 10:20 02/14/2019 Venous) AM CDT 10:41 AM CDT Darwin Giles LAB BLOOD ADD-ON Performing Organization Address City/State/ZIP Code Phon e Number [facility] - [address] [place], [place] [address] [facility] 25-Hydroxyvitamin D2 and D3 (02/14/2019 10:20 AM CDT) athologist Signature 25-Hydroxy D2 <4.0 ng/mL 02/15/2019 8:58 PM CDT 25-Hydroxy D3 32 ng/mL 02/15/2019 8:58 PM CDT 25-Hydroxy D 32 ng/mL 02/15/2019 Total 8:58 PM CDT Comment: ----REFERENCE VALUE---- 25-HYDROXY D TOTAL (D2+D3) Optimum level s in the healthy population are 20-50, patients with bone disease may benefit from higher levels within this r rayna. ----ADDITIONAL INFORMATION---- This test was developed and its performa nce characteristics determined by [facility] in a manner consistent with CLIA requirements. This test has not been cleared or approved by the U.[place]. Kw[place] d and Drug Administration. Specimen Anatomical Collection Method Collection Time Receive d Time (Source) Location / / Volume Laterality Blood (Blood, 02/14/2019 10:20 02/14/2019 1:36 Venous) AM CDT PM CDT Darwin Giles LAB BLOOD ADD-ON Performing Organization Address City/State/ZIP Code Phon e Number [facility] [address] [place], [place] [address] [facility] Uric Acid (02/14/2019 10:20 AM CDT) P athologist Signature Uric Acid, S 6.2 3.7 - 8.0 02/14/2019 mg/dL 12:03 PM CDT Specimen Anatomical Collection Method Collection Time Receive d Time (Source) Location / / Volume Laterality Blood (Blood, 02/14/2019 10:20 02/14/2019 Venous) AM CDT 10:41 AM CDT Darwin Giles LAB BLOOD ADD-ON Performing Organization Address City/State/ZIP Code Phon e Number [facility] - [address] [place], [place] [address] [facility] (ABNORMAL) CBC with Differential (02/14/2019 10:20 AM CDT) [facility] Method Time Signature Hemoglobin 13.7 13.2 - 02/14/2019 16.6 g/dL 10:50 AM CDT Hematocrit 42.2 38.3 - 02/14/2019 48.6 % 10:50 AM CDT Erythrocytes 4.21 (L) 4.35 - 02/14/2019 5.65 10:50 AM CDT x10(12)/L MCV 100.2 (H) 78.2 - 02/14/2019 97.9 fL 10:50 AM CDT RBC Distrib Width 13.2 11.8 - 02/14/2019 14.5 % 10:50 AM CDT Platelet Count 149 135 - 317 02/14/2019 x10(9)/L 10:50 AM CDT Leukocytes 5.9 3.4 - 9.6 02/14/2019 x10(9)/L 10:50 AM CDT Neutrophils 4.30 1.56 - 02/14/2019 6.45 10:50 AM CDT x10(9)/L Lymphocytes 0.91 (L) 0.95 - 02/14/2019 3.07 10:50 AM CDT x10(9)/L Monocytes 0.47 0.26 - 02/14/2019 0.81 10:50 AM CDT x10(9)/L Eosinophils 0.21 0.03 - 02/14/2019 0.48 10:50 AM CDT x10(9)/L Basophils 0.05 0.01 - 02/14/2019 0.08 10:50 AM CDT x10(9)/L Specimen Anatomical Collection Method Collection Time Receive d Time (Source) Location / / Volume Laterality Blood (Blood, 02/14/2019 10:20 02/14/2019 Venous) AM CDT 10:41 AM CDT Darwin Giles LAB BLOOD ADD-ON Performing Organization Address City/State/ZIP Code Phon e Number [facility] - [address] [place], [place] [address] [facility] (ABNORMAL) Renal Function Panel (02/14/2019 10:20 AM CDT) P athologist Signature Potassium, S 4.6 3.6 - 5.2 02/14/2019 mmol/L 12:03 PM CDT Sodium, S 142 135 - 145 02/14/2019 mmol/L 12:03 PM CDT Chloride, S 106 98 - 107 02/14/2019 mmol/L 12:03 PM CDT Bicarbonate, S 22 22 - 29 02/14/2019 mmol/L 12:03 PM CDT Anion Gap 14 7 - 15 02/14/2019 12:03 PM CDT BUN (Blood 45 (H) 8 - 24 02/14/2019 Urea mg/dL 12:03 PM CDT Nitrogen), S Creatinine, S 3.57 (H) 0.74 - 02/14/2019 1.35 mg/dL 12:03 PM CDT eGFR-Non 16 (L) >=60 02/14/2019 Black/ mL/min/BSA 12:03 PM CDT [place] Comment: ----ADDITIONAL INFORMATION---- Estimated GFR calculated using the 2009 CKD_EPI creatinine equation. eGFR-Black/ 18 (L) >=60 mL/min/BSA 2018 12:03 PM CDT Comment: ----ADDITIONAL INFORMATION---- Estimated GFR calculated using the 2009 CKD_EPI creatinine equation. Calcium, Total, S 9.1 8.8 - 10.2 mg/dL 02/14/2019 12:0 3 PM CDT Glucose, S 99 70 - 140 mg/dL 02/14/2019 12:03 PM CDT Albumin, S 4.2 3.5 - 5.0 g/dL 02/14/2019 12:03 PM CDT Phosphorus (Inorganic), S 3.4 2.5 - 4.5 mg/dL 02/15/20 19 12:03 PM CDT Specimen Anatomical Collection Method Collection Time Receive d Time (Source) Location / / Volume Laterality Blood (Blood, 02/14/2019 10:20 02/14/2019 Venous) AM CDT 10:41 AM CDT Darwin Giles LAB BLOOD ADD-ON Performing Organization Address City/State/ZIP Code Phon e Number [facility] - [address] [place], [place] [address] [facility] DX Chest AP or PA and Lateral [...] Mildly enlarged cardiac silhouette with borderline pulmonary zizy ous hypertension. Calcified and tortuous aorta. Prominent central pulmonary arter ies. Mild anterior wedging and loss of height of a few mid to lower thoracic ve rtebral bodies. Darwin Giles IMMike DIAGNOSTIC IMAGING PROCEDURES documented in this encounter Visit Diagnoses Diagnosis Achalasia - Primary Cough With Hemorrhage Shortness Of Breath Dysphagia Gastroesophageal Reflux Disease Without Esophagitis Laparoscopic Myotomy For Achalasia Statu s Post Chronic Kidney Disease Stage 4 Glomerula r Filtration Rate 15-29 (HCC) Achalasia Cough With Hemorrhage Shortness Of Breath Dysphagia Gastroesophageal Reflux Disease Without Esophagitis Laparoscopic Myotomy For Achalasia Statu s Post Chronic Kidney Disease Stage 4 Glomerula r Filtration Rate 15-29 (HCC) Achalasia Cough With Hemorrhage Shortness Of Breath Dysphagia Gastroesophageal Reflux Disease Without Esophagitis Laparoscopic Myotomy For Achalasia Statu s Post Chronic Kidney Disease Stage 4 Glomerula r Filtration Rate 15-29 (HCC) Achalasia Cough With Hemorrhage Shortness Of Breath Dysphagia Gastroesophageal Reflux Disease Without Esophagitis Laparoscopic Myotomy For Achalasia Statu s Post Chronic Kidney Disease Stage 4 Glomerula r Filtration Rate 15-29 (HCC) Achalasia documented in this encounter
--- OUTSIDE RECORDS SUMMARY | 2022-03-31 20:38 | XMS_ITS | Encounter Summary ---
:1940 Author Organization [facility] Address [address] [place] [address] Care Team Providers Name Role Phone Unavailable Primary Care Provider Unavailable Encounter Details Date Type Department Care Team Description 02/11/2019 Clinical Communication Division of [facility] in [place], [place], [place] Ph.D. [address] [place] [phone] Social History Tobacco Use Types Packs/Day [...] Laboratory Medicine Mehrdad Lazcano APRN, C.N.P. [address] [place] [address] 04/04/2022 Appointment Cardiovascular Disease Mehrdad Lazcano APRN, C.N.P. [address] [place] [address] 04/05/2022 Ancillary Procedure Cardiovascular Disease Kayla Heredia M.D. [address] [place] [phone] 04/05/2022 Appointment Cardiovascular Disease Jessa Heredia M.D. [address] [place] [phone] 04/12/2022 Clinical Communication Admitting/Central Scheduling 04/15/2022 Comprehensive Visit Cardiovascular Disease Kayla Heredia M.D. [address] [place] [phone] documented as of this encounter Visit Diagnoses Not on filedocumented in this encounter
--- OUTSIDE RECORDS SUMMARY | 2022-03-31 20:38 | XMS_ITS | Encounter Summary ---
:1940 Author Organization [facility] Address [address] [place] [address] Care Team Providers Name Role Phone Unavailable Primary Care Provider Unavailable Encounter Details Date Type Department Care Team Description 09/18/2002 Hospital Encounter HX NO MAPPING Social History [...] or relatives? How often do you attend uatsdin or More than 4 times per year 02/14/2019 church services? Do you belong to any clubs or No 02/14/2019 organizations such as uatsdin groups, unions, fraternal or athletic groups, or [...] Laboratory Medicine Mehrdad Lazcano APRN, C.N.P. [address] [place] [address] 04/04/2022 Appointment Cardiovascular Disease Mehrdad Lazcano APRN, C.N.P. [address] [place] [address] 04/05/2022 Ancillary Procedure Cardiovascular Disease Kayla Heredia M.D. [address] [place] [phone] 04/05/2022 Appointment Cardiovascular Disease Jessa Heredia M.D. [address] [place] [phone] 04/12/2022 Clinical Communication Admitting/Central Scheduling 04/15/2022 Comprehensive Visit Cardiovascular Disease Kayla Heredia M.D. [address] [place] [phone] documented as of this encounter Visit Diagnoses Not on filedocumented in this encounter
--- OUTSIDE RECORDS SUMMARY | 2022-03-31 20:38 | XMS_ITS | Encounter Summary ---
:1940 Author Organization [facility] Address [address] [place] [address] Care Team Providers Name Role Phone Unavailable Primary Care Provider Unavailable Encounter Details Date Type Department Care Team Description 02/14/2019 Hospital Encounter Department of [place], Achalasi a; Radiology, Danny Granados, Cough With Hemorrhage; Building, in [facility]; [facility]; [place] Gastroesophageal Reflux Dise ase Without Esophagitis; [address] [facility] Laparoscopic Myotomy For Ach alasia Status Post; [place], [place] Chronic Kidney Disease Stage 4 Glomerular Filtration Rate 15-29 ([facility]) [phone] Social History Tobacco Use Types Packs/Day Years [...] Laboratory Medicine Mehrdad Lazcano APRN, C.N.P. [address] [place] [address] 04/04/2022 Appointment Cardiovascular Disease Mehrdad Lazcano APRN, C.N.P. [address] [place] [address] 04/05/2022 Ancillary Procedure Cardiovascular Disease Kayla Heredia M.D. [address] [place] [phone] 04/05/2022 Appointment Cardiovascular Disease Jessa Heredia M.D. [address] [place] [phone] 04/12/2022 Clinical Communication Admitting/Central Scheduling 04/15/2022 Comprehensive Visit Cardiovascular Disease Kayla Heredia M.D. [address] [place] [phone] documented as of this encounter Procedures Procedure Name Priority Date/Time Associated Comments Diagnosis US KIDNEYS RAD - Routine 02/14/2019 11:31 Achalasia Results for this BILATERAL WITH (most inpatients AM CDT Cough With procedure are in BLADDER and all Hemorrhage the results outpatients) Shortness Of section. Breath Dysphagia Gastroesophageal Reflux Disease Without Esophagitis Laparoscopic Myotomy For Achalasia Status Post Chronic Kidney Disease Stage 4 Glomerular Filtration Rate 15-29 (HCC) documented in this encounter Results US Kidneys Bilateral with Bladder (02/14/2019 11:31 [...] with bilateral nonobstructing renal stones. Darwin Giles IMMike US PROCEDURES documented in this encounter Visit Diagnoses Diagnosis Achalasia Cough With Hemorrhage Shortness Of Breath Dysphagia Gastroesophageal Reflux Disease Without Esophagitis Laparoscopic Myotomy For Achalasia Statu s Post Chronic Kidney Disease Stage 4 Glomerula r Filtration Rate 15-29 (HCC) documented in this encounter
--- OUTSIDE RECORDS SUMMARY | 2022-03-31 20:38 | XMS_ITS | Encounter Summary ---
:1940 Author Organization [facility] Address [address] [place] [address] Care Team Providers Name Role Phone Unavailable Primary Care Provider Unavailable Encounter Details Date Type Department Care Team Description 06/25/2002 - Hospital Encounter HX RST GABO [facility]LLOW[facility] 3 C 07/12/2002 Social History Tobacco Use Types Packs/Day [...] or relatives? How often do you attend hoahaoism or More than 4 times per year 02/14/2019 mu-ism services? Do you belong to any clubs or No 02/14/2019 organizations such as hoahaoism groups, unions, fraternal or athletic groups, or [...] Laboratory Medicine Mehrdad Lazcano APRN, C.N.P. [address] [place] [address] 04/04/2022 Appointment Cardiovascular Disease Mehrdad Lazcano APRN, C.N.P. [address] [place] [address] 04/05/2022 Ancillary Procedure Cardiovascular Disease Kayla Heredia M.D. [address] [place] [phone] 04/05/2022 Appointment Cardiovascular Disease Jessa Heredia M.D. [address] [place] [phone] 04/12/2022 Clinical Communication Admitting/Central Scheduling 04/15/2022 Comprehensive Visit Cardiovascular Disease Kayla Heredia M.D. [address] [place] [phone] documented as of this encounter Procedures Procedure Name Priority Date/Time Associated Diagnosis Comme nts US EXTREMITY VEINS Routine 07/06/2002 9:51 AM Res ults for this CURB WORKER procedure are i n the results section. DX CHEST POST PICC Routine 07/04/2002 8:12 PM Res ults for this PLACEMENT 1 VIEW CURB WORKER procedure a re in the results section. US EXTREMITY VEINS Routine 07/04/2002 9:06 AM Res ults for this CURB WORKER procedure are i n the results section. US EXTREMITY VEINS Routine 06/30/2002 10:55 AM Re sults for this CURB WORKER procedure are i n the results section. documented in this encounter Results US Extremity Veins (07/06/2002 9:51 AM CURB WORKER) Anatomical Region Laterality Modality Vascular, Upper Extremity, Lower Extremity Ultrasound Specimen (Source) Anatomical Collection Method Collection Time Re ceived Time Location / / Volume Laterality 07/06/2002 9:51 AM CURB WORKER Narrative 07/06/2002 12:16 PM CURB WORKER 06-Jul-2002 09:51:00 ??Exam: R US Extremity Veins Limited Indications: RUE--F/U DVT, PLEASE DO SAT URDAY PER ??[id number] ORIGINAL REPORT - 06-Jul-2002 12:16:00 Doppler ultrasound examination of the de ep and superficial veins of the right upper extremity compared with 07-04-02. The right internal jugular, and innominate veins, and the medial portion of the righ t subclavian vein are patent with no thr ombus. However, there is acute-appearing near-occlusive thrombus within the lateral aspect of the right subclavian vein and the right axillary vein which is new. 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 There is acute occlusive thrombus within both branches of the anomalously duplicated right brachial vein, which is new. The other brachial vein is patent with no DVT. Th e right basilic vein is occluded with thrombus from the elbow to its confluence with brachial vein proximally, which is new. The cephalic vein is patent throughou t its course. Discussed results with Dr. Vazquez. Ind: [phone] ?? Dia.556, 945.556, 542.556 ?? Electronically signed by: ?? Arvin Bland M.D. [phone] ([id number]) 06-Jul-20 02 12:16 Procedure Note Chava Bland M.D. - 11/24/2017Formatti ng of this note might be different from the original. 06-Jul-2002 09:51:00 Exam: R US Extremit y Veins Limited Indications: RUE--F/U DVT, PLEASE DO SAT URDAY PER [id number] ORIGINAL REPORT - 06-Jul-2002 12:16:00 Doppler ultrasound examination of the de ep and superficial veins of the right upper extremity compared with 07-04-02. The right internal jugular, and innominate veins, and the medial portion of the right subclavian vein are patent with no thrombus. However, th ere is acute-appearing near-occlusive thrombus within the lateral aspect of the right subclavian vein and the right axillary vein which is new. There are paired brachial veins, one of which is anomalously dupli cated. There is acute occlusive thrombus within both branches of the anomalously duplicated right brachial vein, which is new. The other brachial vein is patent with no DVT. The right basilic vein is occluded with thro mbus from the elbow to its confluence with brachial vein proximally, which is new. The cephalic vein is patent throughout its course. Discussed results with Dr. Vazquez. Ind: 942.555 Dia.556, 945.556, 542 .556 Electronically signed by: Arvin Bland M.D. [id number] ([id number]) 06-Jul-20 02 12:16 Edison Vazquez M.D. IMG US PROCEDURES DX Chest Post PICC Placement 1 View (07/04/2002 8:12 PM CURB WORKER) Anatomical Region Laterality Modality Chest N/A Radiographic Imaging Specimen (Source) Anatomical Collection Method Collection Time Re ceived Time Location / / Volume Laterality 07/04/2002 8:12 PM CURB WORKER Narrative 07/05/2002 10:44 AM CURB WORKER 04-Jul-2002 20:12:00 ??Exam: Chest-PICC Indications: left picc placement-svc ORIGINAL REPORT - 04-Jul-2002 20:49:00 Left PICC line with tip at the junction of the left innominate vein and SVC. No pneumothorax. Electronically signed by: ?? Norris Peraza [phone] ([id number]) 04-Jul-20 02 20:49 I have reviewed the films/images and agr ee with the above interpretation. Electronically signed by: ?Bg Boyce M.D. 05-Jul-2002 10:44 Procedure Note Ari Boyce M.D. - 11/24/2017Formatt ing of this note might be different from the original. 04-Jul-2002 20:12:00 Exam: Chest-PICC Indications: left picc placement-svc ORIGINAL REPORT - 04-Jul-2002 20:49:00 Left PICC line with tip at the junction of the left innominate vein and SVC. No pneumothorax. Electronically signed by: RubiCinthyaBailey Peraza [phone] ([id number]) 04-Jul-20 02 20:49 I have reviewed the films/images and agr ee with the above interpretation. Electronically signed by: Eric. Dai Boyce M.D. 05-Jul-2002 10:44 Edison Vazquez M.D. IMG DIAGNOSTIC IMAGING PROCE [facility] US Extremity Veins (07/04/2002 9:06 AM CURB WORKER) Anatomical Region Laterality Modality Vascular, Upper Extremity, Lower Extremity Ultrasound Specimen (Source) Anatomical Collection Method Collection Time Re ceived Time Location / / Volume Laterality 07/04/2002 9:06 AM CURB WORKER Narrative 07/04/2002 11:44 AM CURB WORKER 04-Jul-2002 09:06:00 ??Exam: R US Extremity Veins Limited Indications: SWELLING/R/O THROMBOSIS^MB3 [id number] ORIGINAL REPORT - 04-Jul-2002 11:44:00 Ultrasound examination of the deep veins of the right upper extremity shows the right internal jugular, subclavian, axillary and upper brachial veins to be widely patent. There is a small segment of iso lated thrombus in a right brachial vein just above the level of the elbow. ?? ELECTRONIC IMAGES ONLY--NO FILMS Ind: 542.545 ?? Dia.545 ?? Electronically signed by: ?? Brandee Conde, ??D.O. ??[id number] 2 11:44 Procedure Note Neeru Conde D.O. - 11/24/2017Form atting of this note might be different from the original. 04-Jul-2002 09:06:00 Exam: R US Extremit y Veins Limited Indications: SWELLING/R/O THROMBOSIS^MB3 [id number] ORIGINAL REPORT - 04-Jul-2002 11:44:00 Ultrasound examination of the deep veins of the right upper extremity shows the right internal jugular, subclavian, axillary and upper brachial veins to be widely patent. There is a small segment of isolated thrombus in a right brachial vein just above the level of the elbow. ELECTRONIC IMAGES ONLY--NO FILMS Ind: 542.545 Dia.545 Electronically signed by: Brandee Conde D.O. [id number] 04-Jul-2002 11 :44 Edison Vazquez M.D. IMG US PROCEDURES US Extremity Veins (06/30/2002 10:55 AM CURB WORKER) Anatomical Region Laterality Modality Vascular, Upper Extremity, Lower Extremity Ultrasound Specimen (Source) Anatomical Collection Method Collection Time Re ceived Time Location / / Volume Laterality 06/30/2002 10:55 AM CURB WORKER Narrative 07/01/2002 10:57 AM CURB WORKER 30-Jun-2002 10:55:00 ??Exam: US Extremity Veins Complete Indications: SWELLING/PAIN ORIGINAL REPORT - 30-Jun-2002 15:57:00 Doppler ultrasound evaluation of [facility] lower extremity venous systems demonstrates patent and easily compressible common femoral, superficial femoral, and popliteal veins in both legs. ??No evidence for deep venous thrombosis. ?? Ultrasound electronic images only. ??NO FILMS Ind: [phone] ?? Dia.120 ?? Electronically signed by: ?? Marysol Mejia MD [phone] ([id number]) 2 15:57 I have reviewed the films/images and agr ee with the above interpretation. Electronically signed by: ?? Juan David [phone] ([id number]) 2 10:57 Procedure Note Provider, Historical - 11/24/2017Formatt ing of this note might be different from the original. 30-Jun-2002 10:55:00 Exam: US Extremity Veins Complete Indications: SWELLING/PAIN ORIGINAL REPORT - 30-Jun-2002 15:57:00 [facility] demonstrates patent and easily compressible common femoral, superficial femoral, and popliteal veins in both legs. No evidence for deep venous thrombosis. Ultrasound electronic images only. NO FI LMS Ind: 920.705 Dia.120 Electronically signed by: Marysol Mejia MD [phone] ([id number]) 2 15:57 I have reviewed the films/images and agr ee with the above interpretation. Electronically signed by: Juan David [phone] ([id number]) 2 10:57 Bassam BAKER US PROCEDURES documented in this encounter Visit Diagnoses Not on filedocumented in this encounter
--- OUTSIDE RECORDS SUMMARY | 2022-03-31 20:38 | XMS_ITS | Encounter Summary ---
:1940 Author Organization [facility] Address [address] [place] [address] Care Team Providers Name Role Phone Unavailable Primary Care Provider Unavailable Encounter Details Date Type Department Care Team Description 06/16/2002 - 06/25/2002 Hospital Encounter HX RST GABO HOLLOWAY 9D Social History Tobacco Use Types Packs/Day Years Used Date Smoking Tobacco: Never Assessed Social Isolation Answer Date Recorded In a typical week, how many times do you Once a week 02/14/2019 talk on the phone with family, friends, or neighbors? How often do you get together with friends More than three t imes a week 02/14/2019 or relatives? How often do you attend druze or More than 4 times per year 02/14/2019 confucianist services? Do you belong to any clubs or No 02/14/2019 organizations such as druze groups, unions, fraternal or athletic groups, or [...] Laboratory Medicine Mehrdad Lazcano APRN, C.N.P. [address] [place] [address] 04/04/2022 Appointment Cardiovascular Disease Mehrdad Lazcano APRN, C.N.P. [address] [place] [address] 04/05/2022 Ancillary Procedure Cardiovascular Disease Kayla Heredia M.D. [address] [place] [address] [phone] 04/05/2022 Appointment Cardiovascular Disease Jessa Heredia M.D. [address] [place] [address] [phone] 04/12/2022 Clinical Communication Admitting/Central Scheduling 04/15/2022 Comprehensive Visit Cardiovascular Disease Kayla Heredia M.D. [address] [place] [address] [phone] documented as of this encounter Procedures Procedure Name Priority Date/Time Associated Comments Diagnosis US RETROPERITONEUM Routine 06/24/2002 9:19 Result s for this LIMITED PLUS AM YARN WEIGHER procedure are i n RETROPERITONEUM LIMITED the results DOPPLER section. DX OUTSIDE IMAGE Routine 06/24/2002 6:38 Results for this INTERPRETATION AM YARN WEIGHER procedure are in the results section. DX CHEST POST PICC Routine 06/21/2002 10:13 Resul ts for this PLACEMENT 1 VIEW PM YARN WEIGHER procedure a re in the results section. DX CHEST POST PICC Routine 06/21/2002 6:11 Result s for this PLACEMENT 1 VIEW PM YARN WEIGHER procedure a re in the results section. HXGENERAL PATHOLOGY Routine 06/21/2002 4:19 Resul ts for this REPORT PM YARN WEIGHER procedure are i n the results section. ECG Routine 06/21/2002 10:38 Results for this AM YARN WEIGHER procedure are i n the results section. CT ORBITS AND SELLA Routine 06/21/2002 8:27 Resul ts for this WITHOUT IV CONTRAST AM YARN WEIGHER procedur e are in the results section. ECHOCARDIOGRAM Routine 06/20/2002 8:35 AM YARN WEIGHER DX OUTSIDE IMAGE Routine 06/20/2002 6:32 Results for this INTERPRETATION AM YARN WEIGHER procedure are in the results section. HXGENERAL PATHOLOGY Routine 06/19/2002 10:26 Resu lts for this REPORT AM YARN WEIGHER procedure are i n the results section. HXPHYS SURG BLD ORDER Routine 06/18/2002 10:00 Re sults for this PM YARN WEIGHER procedure are i n the results section. US ABDOMEN COMPLETE Routine 06/18/2002 9:39 Resul ts for this AM YARN WEIGHER procedure are i n the results section. MR CERVICAL AND THORACIC Routine 06/18/2002 8:24 Results for this WITHOUT AND WITH IV AM YARN WEIGHER procedur e are in CONTRAST the results section. ECG Routine 06/16/2002 9:34 Results for this PM YARN WEIGHER procedure are i n the results section. DX CHEST AP OR PA AND Routine 06/16/2002 5:55 Res ults for this LATERAL 2 VIEWS PM YARN WEIGHER procedure ar e in the results section. CT HEAD WITHOUT IV Routine 06/16/2002 4:28 Result s for this CONTRAST PM YARN WEIGHER procedure are i n the results section. documented in this encounter Results US Retroperitoneum Limited plus Retroperitoneum Limited Doppler (06/24/2002 9:19 AM YARN WEIGHER) Anatomical Region Laterality Modality Abdomen, Pelvis N/A Ultrasound Specimen (Source) Anatomical Collection Method Collection Time Re ceived Time Location / / Volume Laterality 06/24/2002 9:19 AM YARN WEIGHER Narrative 06/24/2002 11:05 AM YARN WEIGHER 24-Jun-2002 09:19:00 ??Exam: US Retro Lmtd w Doppler Lmtd Indications: INSUFFICIENCY^[id number] ORIGINAL REPORT - 24-Jun-2002 11:05:00 The kidneys bilaterally are somewhat sma ll and echogenic in keeping with chronic medical renal disease. The left kidney measures 9cm. The right kidney measures 9.7cm. No abnormal renal masses or hydrone phrosis is seen. The renal arteries bila terally were poorly visualized, however, there was no evidence to suggest significant renal artery stenosis. ?? Electronic images only -- NO FILMS MAD E Ind: 810.705 ?? Dia.210 ?? Electronically signed by: ?? Aiden Lafleur MD [phone] ([id number]) 24-Jun-20 02 11:05 Procedure Note Provider, Historical - 11/24/2017Formatt ing of this note might be different from the original. 24-Jun-2002 09:19:00 Exam: US Retro Lmtd w Doppler Lmtd Indications: INSUFFICIENCY^[id number] ORIGINAL REPORT - 24-Jun-2002 11:05:00 The kidneys bilaterally are somewhat sma ll and echogenic in keeping with chronic medical renal disease. The left kidney measures 9cm. The right kidney measures 9.7cm. No abnormal renal masses or hydronephrosis is seen. The renal arteries bilaterally were poor ly visualized, however, there was no evidence to suggest significant renal artery stenosis. Electronic images only -- NO FILMS MAD E Ind: 810.705 Dia.210 Electronically signed by: Aiden Lafleur MD [phone] ([id number]) 24-Jun-20 02 11:05 Jamal Camejo M.D. IMMike US PROCEDURES DX Outside Image Interpretation (06/24/2002 6:38 AM YARN WEIGHER) Anatomical Region Laterality Modality N/A Radiographic Imaging Specimen (Source) Anatomical Collection Method Collection Time Re ceived Time Location / / Volume Laterality 06/24/2002 6:38 AM YARN WEIGHER Narrative 06/24/2002 9:30 AM YARN WEIGHER 24-Jun-2002 06:38:00 ??Exam: Interp of OUTSIDE X-RAY Indications: ?? ORIGINAL REPORT - 24-Jun-2002 09:30:00 Outside MRA of the renal arteries perfor med 06-04-01. The examination is moderately limited. Visualization of the mid and distal main renal arteries on the contrast enhanced MRA is quite poor. The ostia and proximal portions of the renal lorena jaxon appear patent without significant stenosis bilaterally. No other abnormality is identified. Renal size is probably within normal limits, however, no scale is available to measure the kidneys on the submitted images. ?? (06-24-02) ??(233) Electronically signed by: ?? Sena Tsang ??24-Jun-2002 0 9:30 Procedure Note Peng Santiago M.D., Ph.D. - 8 24-Jun-2002 06:38:00 Exam: Interp of OUT SIDE X-RAY Indications: ORIGINAL REPORT - 24-Jun-2002 09:30:00 Outside MRA of the renal arteries perfor med 06-04-01. The examination is moderately limited. Visualization of the mid and distal main renal arteries on the contrast enhanced MRA is quite poor. The ostia and proximal portions of the renal arteries appear patent without significant stenosis bilaterally. No other abnormality is identified. Renal size is probably within normal limits, however, no scale is available to measure the kidneys on the submitted images. (06-24-02) (362) Electronically signed by: Sena Tsang 24-Jun-2002 09: 30 Zeb Cotton M.D. IMG DIAGNOSTIC IMAGING PROCE DURES DX Chest Post PICC Placement 1 View (06/21/2002 10:13 PM YARN WEIGHER) Anatomical Region Laterality Modality Chest N/A Radiographic Imaging Specimen (Source) Anatomical Collection Method Collection Time Re ceived Time Location / / Volume Laterality 06/21/2002 10:13 PM YARN WEIGHER Narrative 06/22/2002 8:19 AM YARN WEIGHER 21-Jun-2002 22:13:00 ??Exam: Chest-PICC Indications: Right PICC Tip Placement ORIGINAL REPORT - 21-Jun-2002 22:45:00 Right PICC tip in the proximal right sub clavian vein. Electronically signed by: ?? Jossy Valdes MD [phone] ([id number]) 21-Jun-20 02 22:45 I have reviewed the films/images and agr ee with the above interpretation. Electronically signed by: ?? Miki ??Martha MOISE. ??[id number] 22-Jun-2002 0 8:19 Procedure Note Leroy Thomas M.D. - 11/24/2017Formatt ing of this note might be different from the original. 21-Jun-2002 22:13:00 Exam: Chest-PICC Indications: Right PICC Tip Placement ORIGINAL REPORT - 21-Jun-2002 22:45:00 Right PICC tip in the proximal right sub clavian vein. Electronically signed by: Jossy Valdes MD [phone] ([id number]) 21-Jun-20 02 22:45 I have reviewed the films/images and agr ee with the above interpretation. Electronically signed by: Miki Thomas MD. [id number] 22-Jun-2002 08:19 Jamal Camejo M.D. IMG DIAGNOSTIC IMAGING PROCE DURES DX Chest Post PICC Placement 1 View (06/21/2002 6:11 PM YARN WEIGHER) Anatomical Region Laterality Modality Chest N/A Radiographic Imaging Specimen (Source) Anatomical Collection Method Collection Time Re ceived Time Location / / Volume Laterality 06/21/2002 6:11 PM YARN WEIGHER Narrative 06/22/2002 12:05 PM YARN WEIGHER 21-Jun-2002 18:11:00 ??Exam: Chest-PICC Indications: RIGHT PICC TIP PLACED ORIGINAL REPORT - 21-Jun-2002 19:03:00 Right PICC tip in RA. Cardiac enlargemen t. Electronically signed by: ?? Alivia Nur M.D. [phone] 21-Jun-2002 19:03 I have reviewed the films/images and agr ee with the above interpretation. Electronically signed by: ?? Candida Roberto MD [phone] 22-Jun-2002 12:05 Procedure Note Hiram Roberto M.D. - 11/24/2017Format ting of this note might be different from the original. 21-Jun-2002 18:11:00 Exam: Chest-PICC Indications: RIGHT PICC TIP PLACED ORIGINAL REPORT - 21-Jun-2002 19:03:00 Right PICC tip in RA. Cardiac enlargemen t. Electronically signed by: Alivia Nur M.D. [phone] 21-Jun-2002 19:03 I have reviewed the films/images and agr ee with the above interpretation. Electronically signed by: Candida Roberto MD [phone] 22-Jun-2002 12:05 Jamal Camejo M.D. IMG DIAGNOSTIC IMAGING PROCE SUKUMAR Carter general Pathology Report (06/21/2002 4:19 PM YARN WEIGHER) Specimen Anatomical Collection Method Collection Time Receive d Time (Source) Location / / Volume Laterality 06/21/2002 4:19 PM 2 4:19 YARN WEIGHER PM YARN WEIGHER Narrative [facility] - 06/21/2002 4:19 PM YARN WEIGHER 21Jun2002 General Biopsy Primary Physician: ?Cheng navarro Jr., M.D. ?([id number]) Requested By: ? Florentin lindquist M.D. ?? TISSUE DESCRIPTION: ?? A1. Bulb/second portion duodenum sma ll bowel - (5 pieces 0.2 - 0.3 cm. in diameter). B1. Lower ?? third esophagus - (4 pieces 0.1 - 0. 2 cm. in diameter). ?? [id number] A1, B1 ?? DIAGNOSIS: ?? 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 ?? B) Esophagus, distal, endoscopic bio psy: ??Luminal fibrinoinflammatory exudate consistent with ?? nearby ulcer/erosion site, and hyper plastic cardiac-type mucosa. ??No fungi (GMS stain) or ?? viral inclusions are identified. ?? 24Jun2002 ?Rahel Woo M.D.:jns Procedure Note 11/11/2017 21Jun2002 General Biopsy Primary Physician: Jr Bailey Reyes M.D. ([id number]) Requested By: Florentin West M.D. TISSUE DESCRIPTION: A1. Bulb/second portion duodenum small bowel - (5 pieces 0.2 - 0.3 cm. in diameter). B1. Lower third esophagus - (4 pieces 0.1 - 0.2 c m. in diameter). [id number] A1, B1 DIAGNOSIS: A) Small bowel, duodenum, bulb and seco nd portion mass, endoscopic biopsy: Heterotopic gastric fundic-type mucosa. B) Esophagus, distal, endoscopic biopsy : Luminal fibrinoinflammatory exudate consistent with nearby ulcer/erosion site, and hyperpla stic cardiac-type mucosa. No fungi (GMS stain) or viral inclusions are identified. 24Jun2002 Rahel Woo M.D.:s Florentin Giles M.D. LAB PATHOLOGY/CYTOLOGY ORDERABLES Performing Organization Address City/State/ZIP Code Phon e Number [facility] - [address] [place] [address] 05 [facility] ECG 12 Lead (06/21/2002 10:38 AM YARN WEIGHER) Specimen (Source) Anatomical Collection Method Collection Time Re ceived Time Location / / Volume Laterality 06/21/2002 10:38 AM YARN WEIGHER [facility] - 06/21/2002 10:59 AM YARN WEIGHER 21Jun2002 10:38 VENTRICULAR RATE 64 Normal sinus rhythm Leftward axis When compared with ECG of 16-JUN-2002 21 :34, No significant change was found [id number]^EVERT ??^JONATHAN Procedure Note Jonathan Darden M.D. - 11/13/2017Formatt ing of this note might be different from the original. 21Jun2002 10:38 VENTRICULAR RATE 64 Normal sinus rhythm Leftward axis When compared with ECG of 16-JUN-2002 21 :34, No significant change was found [id number]^EVERT MOISE^JONATHAN Historical Provider ECG ORDERABLES Performing Organization Address City/State/ZIP Code Phon e Number HX [facility] [address] [place] [address], U SA CT Orbits and Sella without IV Contrast (06/21/2002 8:27 AM YARN WEIGHER) Anatomical Region Laterality Modality Head N/A Computed Tomography Specimen (Source) Anatomical Collection Method Collection Time Re ceived Time Location / / Volume Laterality 06/21/2002 8:27 AM YARN WEIGHER Narrative 06/21/2002 11:48 AM YARN WEIGHER 21-Jun-2002 08:27:00 ??Exam: CT PF/Sella/Orbit wo Indications: Follow up surg ORIGINAL REPORT - 21-Jun-2002 11:48:00 CT scan of the head without contrast. Si nce the previous CT of 06-16-02, a right frontal craniotomy at the vertex has been performed. Associated postoperative changes with excision of the previously not ed mass that by history represented an a bscess. There is less mass effect on today's examination with no shift of midline structures. No evidence of acute hemorrhage. Ind: 132.400 ?? Dia.450 ?? Electronically signed by: ?? Rubi Umanzor MD. ??[phone] 21-Jun-2002 11:48 Procedure Note Cj Umanzor III, M.D. - 11/24/2017Forma tting of this note might be different from the original. 21-Jun-2002 08:27:00 Exam: CT PF/Sella/O rbit wo Indications: Follow up surg ORIGINAL REPORT - 21-Jun-2002 11:48:00 CT scan of the head without contrast. Si nce the previous CT of 06-16-02, a right frontal craniotomy at the vertex has been performed. Associated postoperative changes with excision of the previously noted mass that by history represented an abscess. There is less mass effect on today's examination with no shift of midline structures. No evidence of acute hemorrhage. Ind: 132.400 Dia.450 Electronically signed by: Rubi Umanzor MD. [id number] 21-Jun-2002 11:48 Zeb Cotton M.D. IMMike CT PROCEDURES Echocardiogram (06/20/2002 8:35 AM YARN WEIGHER) Anatomical Region Laterality Modality Echocardiography Specimen (Source) Anatomical Collection Method Collection Time Re ceived Time Location / / Volume Laterality 06/20/2002 8:35 AM YARN WEIGHER Historical Provider CV ECHO PROCEDURES DX Outside Image Interpretation (06/20/2002 6:32 AM YARN WEIGHER) Anatomical Region Laterality Modality N/A Radiographic Imaging Specimen (Source) Anatomical Collection Method Collection Time Re ceived Time Location / / Volume Laterality 06/20/2002 6:32 AM YARN WEIGHER Narrative 06/24/2002 10:40 AM YARN WEIGHER 20-Jun-2002 06:32:00 ??Exam: Interp of OUTSIDE X-RAY Indications: ?? ORIGINAL REPORT - 24-Jun-2002 10:40:[address] of the chest, abdomen, and pe lvis with oral contrast only performed 06-14-02. Evaluation of the chest reveals moderate dilatation of the esophagus with mild/moderate diffuse thickening of the distal esophagus. A mass in this region could not be excluded. A few small mediastinal nodes are noted, the largest measuring less than 1cm in diameter. The lungs are clear. Minimal left pleural thickening versus very small left pleural effusion. ?? Abdomen and pelvis: Thickening of the ga stric antrum/proximal duodenum versus under distension. Aortoiliac arteriosclerosis. Remainder of the examination is negative. ?? (06-24-02) ??(362) Electronically signed by: ?? Sena Tsang ??24-Jun-2002 1 0:40 Procedure Note Peng Santiago M.D., Ph.D. - 8 20-Jun-2002 06:32:00 Exam: Interp of OUT SIDE X-RAY Indications: ORIGINAL REPORT - 24-Jun-2002 10:40:[address] of the chest, abdomen, and pe lvis with oral contrast only performed 06-14-02. Evaluation of the chest reveals moderate dilatation of the esophagus with mild/moderate diffuse thickening of the distal esophagus. A mass in this region could n ot be excluded. A few small mediastinal nodes are noted, the largest measuring less than 1cm in diameter. The lungs are clear. Minimal left pleural thickening versus very small left pleural effusion. Abdomen and pelvis: Thickening of the ga stric antrum/proximal duodenum versus under distension. Aortoiliac arteriosclerosis. Remainder of the examination is negative. (06-24-02) (362) Electronically signed by: Sena Tsang 24-Jun-2002 10: 40 Historical Provider IMG DIAGNOSTIC IMAGING PROCE SUKUMAR Hx general Pathology Report (06/19/2002 10:26 AM YARN WEIGHER) Specimen Anatomical Collection Method Collection Time Receive d Time (Source) Location / / Volume Laterality 06/19/2002 10:26 06/19/2002 AM YARN WEIGHER 10:26 AM YARN WEIGHER Narrative [facility] - 06/19/2002 10:26 AM YARN WEIGHER [id number] Surgical Pathology Requested By: ? Zeb Cotton M.D. ?([id number]) ? Melecio Alfaro M.D. ?? TISSUE DESCRIPTION: ?? Tissue from brain (right frontal reg ion--2.0 x 2.0 x 0.3 cm in aggregate and 4.0 x 3.0 x 1.0 ?? cm in aggregate) ?? [id number] A1, A2, A3, A4, A5, A6 ?? DIAGNOSIS: ?? Brain, right frontal, biopsy: ??Orga nizing bacterial abscess. ??Gram stain demonstrates coccal ?? organisms. ??Stains for fungi are ne gative. ??Stains for mycobacteria (auramine rhodamine) show ?? rare bacilli that may represent cont aminants. ?? 21Jun2002 ?Zuleyma Millard M.D.:mirela ?? PRELIMINARY FROZEN SECTION CONSULTAT ION: ?? Organizing abscess. ??Hold over. Procedure Note 11/11/2017 [id number] Surgical Pathology Requested By: Zeb Cotton M.D. ( [id number]) Melecio Alfaro M.D. TISSUE DESCRIPTION: Tissue from brain (right frontal region --2.0 x 2.0 x 0.3 cm in aggregate and 4.0 x 3.0 x 1.0 cm in aggregate) [id number] A1, A2, A3, A4, A5, A6 DIAGNOSIS: Brain, right frontal, biopsy: Organizin g bacterial abscess. Gram stain demonstrates coccal organisms. Stains for fungi are negativ e. Stains for mycobacteria (auramine rhodamine) show rare bacilli that may represent contami nants. 21Jun2002 Zuleyma Millard M.D.:skp PRELIMINARY FROZEN SECTION CONSULTATION : Organizing abscess. Hold over. Zeb Cotton M.D. LAB PATHOLOGY/CYTOLOGY ORDER SHON Performing Organization Address City/[facility] Phon e Number [facility] - [address] [place] [address] 05 [facility] HX phys Surg Bld Order (06/18/2002 10:00 PM YARN WEIGHER) Specimen Anatomical Collection Method Collection Time Receive d Time (Source) Location / / Volume Laterality 06/18/2002 10:00 06/18/2002 PM YARN WEIGHER 10:55 PM YARN WEIGHER Narrative [facility] - 06/18/2002 10:00 PM YARN WEIGHER 18 Jun 2002 ?[id number] ? Ro ?22:00 ?? Phys Surg Bld Order: ?ABO/RH ? O POS ?Antibody Screen ?N eg ? Procedure Note 12/06/2017 18 Jun 2002 [id number] Ro 22:00 Phys Surg Bld Order: ABO/RH O POS Antibody Screen Neg Historical Provider LAB HISTORICAL ORDERS Performing Organization Address [facility] Phon e Number [facility] - [address] US Abdomen Complete (06/18/2002 9:39 AM YARN WEIGHER) Anatomical Region Laterality Modality Abdomen N/A Ultrasound Specimen (Source) Anatomical Collection Method Collection Time Re ceived Time Location / / Volume Laterality 06/18/2002 9:39 AM YARN WEIGHER Narrative 06/18/2002 12:23 PM YARN WEIGHER 18-Jun-2002 09:39:00 ??Exam: US Abdomen Complete Indications: r/o metastases^[id number] ?? do2 -300 ORIGINAL REPORT - 18-Jun-2002 12:23:00 Abdominal ultrasound. Normal hepatic par enchymal echotexture with no intrahepatic mass nor intra nor extrahepatic bile duct dilatation. Spleen negative. Gallbladder negative. Head, neck and body of the pancreas are well seen and negative. Ford creatic tail not visualized. Mild diffuse cortical parenchymal thinning left kidney. Both kidneys otherwise negative with the left measuring 10.4cm and the right 10.2cm [id number]. Normal caliber abdo deion aorta. Examination is otherwise negative. ?? ELECTRONIC IMAGES ONLY--NO FILMS Ind: 771.705 ?? Dia.120 ?? Electronically signed by: ?? Arvin Bland M.D. [id number]) 18-Jun-20 02 12:23 Procedure Note Chava Bland M.D. - 11/24/2017Formatti ng of this note might be different from the original. 18-Jun-2002 09:39:00 Exam: US Abdomen Co mplete Indications: r/o metastases^[id number] do2-30 0 ORIGINAL REPORT - 18-Jun-2002 12:23:00 Abdominal ultrasound. Normal hepatic par enchymal echotexture with no intrahepatic mass nor intra nor extrahepatic bile duct dilatation. Spleen negative. Gallbladder negative. Head, neck and body of the pancreas are well seen and negative. Pancreatic tail not visualized. Mild diffuse cortical parenchymal thinning left kidney. Both kidneys otherwise negative with the left measuring 10.4cm and the right 10.2cm [id number]. Normal caliber abdominal aorta. Examination is otherwise negative. ELECTRONIC IMAGES ONLY--NO FILMS Ind: 771.705 Dia.120 Electronically signed by: Arvin Bland M.D. [id number] [id number]) 18-Jun-20 02 12:23 Rell Raza M.D. IMG US PROCEDURES MR Cervical And Thoracic Without And With Iv Contrast (06/18/2002 8:24 AM YARN WEIGHER) Anatomical Region Laterality Modality Magnetic Resonance Specimen (Source) Anatomical Collection Method Collection Time Re ceived Time Location / / Volume Laterality 06/18/2002 8:24 AM YARN WEIGHER Narrative 06/18/2002 10:14 AM YARN WEIGHER 18-Jun-2002 08:24:00 ??Exam: MRI CSP & THSP wo&w Indications: cervical thoracic spine^LE weakness, intracranial mass ORIGINAL REPORT - 18-Jun-2002 10:14:00 MRI cervical and thoracic spine without and with contrast. Mild disk bulges are seen at the 3rd and 4th cervical interspaces resulting in mild effacement of the ventral thecal sac. Cervical spine is oth erwise unremarkable. Exam of the thoraci c spine demonstrates a focal disk protrusion to the right of midline at T7-8 which very mildly deforms the adjacent thoracic cord. The cord appears normal through out, without signal abnormality. Cervica l and thoracic spine are otherwise negative. No abnormal contrast enhancement. Ind: 389.999 ?? Dia.357 ?? Electronically signed by: ?? Lizzette Varela M.D. [phone] 18-Jun-2002 10:14 Procedure Note Keila Varela M.D. - 11/24/2017Fo rmatting of this note might be different from the original. 18-Jun-2002 08:24:00 Exam: MRI CSP & THS P wo&w Indications: cervical thoracic spine^LE weakness, intracranial mass ORIGINAL REPORT - 18-Jun-2002 10:14:00 MRI cervical and thoracic spine without and with contrast. Mild disk bulges are seen at the 3rd and 4th cervical interspaces resulting in mild effacement of the ventral thecal sac. Cervical spine is otherwise unremarkable. Exam of the thoracic spine demonstrates a focal disk protrusion to the right of midline at T7-8 which very mildly deforms the adjacent thoracic cord. The cord appears normal throughout, without signal abnormality. Cervical and thoracic spine are otherwise negative. No abnormal contrast enhancement. Ind: 389.999 Dia.357 Electronically signed by: Lizzette Varela M.D. [id number] 18-Jun-2002 10:14 Vivek Blue M.D. IMG MRI PROCEDURES ECG 12 Lead (06/16/2002 9:34 PM [facility]) Specimen (Source) Anatomical Collection Method Collection Time Re ceived Time Location / / Volume Laterality 06/16/2002 9:34 PM [facility] RADIOLOGY SYSTEM - 06/17/2002 5:48 AM [facility] [id number] 21:34 VENTRICULAR RATE 61 Normal sinus rhythm Left axis deviation No previous ECGs available [id number]^ALVERTO ??^ACE Procedure Note Ace aRgland M.D. - 11/13/2017Forma tting of this note might be different from the original. 16Jun2002 21:34 VENTRICULAR RATE 61 Normal sinus rhythm Left axis deviation No previous ECGs available [id number]^ALVERTO MOISE^ACE Historical Provider ECG ORDERABLES Performing Organization Address City/State/ZIP Code Phon e Number HX [facility] [address] [place] [address], U SA DX Chest AP or PA and Lateral 2 Views (06/16/2002 5:55 PM YARN WEIGHER) Anatomical Region Laterality Modality Chest N/A Radiographic Imaging Specimen (Source) Anatomical Collection Method Collection Time Re ceived Time Location / / Volume Laterality 06/16/2002 5:55 PM YARN WEIGHER Narrative 06/17/2002 2:58 PM YARN WEIGHER 16-Jun-2002 17:55:00 ??Exam: Chest-- 2 Views Indications: HERB ORIGINAL REPORT - 16-Jun-2002 18:18:00 Tiny amount of fluid or pleural thickeni ng left base. Calcified granuloma right upper lung. Electronically signed by: ?? Alcira Raya MD 16-Jun-2002 18:18 I have reviewed the films/images and agr ee with the above interpretation. Electronically signed by: ?? Ariel. ??King JOSE MARIA. ?? [phone] 17-Jun-2002 14 :58 Procedure Note Navneet Gomez M.D. - 11/24/2017Format ting of this note might be different from the original. 16-Jun-2002 17:55:00 Exam: Chest-- 2 Vie ws Indications: HERB ORIGINAL REPORT - 16-Jun-2002 18:18:00 Tiny amount of fluid or pleural thickeni ng left base. Calcified granuloma right upper lung. Electronically signed by: Alcira Raya MD 6 16-Jun-2002 18:18 I have reviewed the films/images and agr ee with the above interpretation. Electronically signed by: Lesly Gomez MD. [id number] 17-Jun-2002 14:58 Lizz EDWARDSG DIAGNOSTIC IMAGING PROCE DUR[facility] CT Head without IV Contrast (06/16/2002 4:28 PM YARN WEIGHER) Anatomical Region Laterality Modality Head N/A Computed Tomography Specimen (Source) Anatomical Collection Method Collection Time Re ceived Time Location / / Volume Laterality 06/16/2002 4:28 PM YARN WEIGHER Narrative 06/17/2002 9:16 AM [facility] 16-Jun-2002 16:28:00 ??Exam: CT Head wo Indications: left sided weakness REVISED REPORT - 17-Jun-2002 09:16:[address] head. Approximately 3cm h eterogeneous mass in the superior right frontal lobe anteriorly. Large amount of surrounding edema, which produces localized sulcal effacement with mild mass effe ct upon the anterior horn of the right l ateral ventricle. Mild dilatation of the temporal horn of the right lateral ventricle. Minimal shift of midline structures to the left. Few tiny foci of increased density along the anterior margin of th is mass, which could represent a small amount of hemorrhage. Differential diagnostic considerations would include both primary and secondary neoplastic processes. MRI is recommended for further characte rization. No other lesions identified. Findings discussed with the referring service. Ind: 113.344 ?? Dia.[id number] ?? Electronically signed by: ?? Rubi Santiago M.D. ??[id number] 17-Jun-2002 09:16 Procedure Note Cj Santiago M.D. - 11/24/2017Formatti ng of this note might be different from the original. 16-Jun-2002 16:28:00 Exam: CT Head wo Indications: left sided weakness REVISED REPORT - 17-Jun-2002 09:16:[address] head. Approximately 3cm h eterogeneous mass in the superior right frontal lobe anteriorly. Large amount of surrounding edema, which produces localized sulcal effacement with mild mass effect upon the anterior horn of the right lateral ventr icle. Mild dilatation of the temporal horn of the right lateral ventricle. Minimal shift of midline structures to the left. Few tiny foci of increased density along the anterior margin of this mass, which coul d represent a small amount of hemorrhage. Differential diagnostic considerations would include both primary and secondary neoplastic processes. MRI is recommended for further characterization. No other lesions ident ified. Findings discussed with the referring service. Ind: 113.344 Dia.344 Electronically signed by: Rubi Santiago M.D. [phone] 17-Jun-2002 09:16 Alana Garcia M.D. IMG CT PROCEDURES documented in this encounter Visit Diagnoses Not on filedocumented in this encounter
--- OUTSIDE RECORDS SUMMARY | 2022-03-31 20:38 | XMS_ITS | Encounter Summary ---
:1940 Author Organization [facility] Address [address] [place] [address] Care Team Providers Name Role Phone Harish Silver MD Primary Care Provider Encounter Details Date Type Department Care Team Description 03/30/2022 Treatment [facility] Sebastian Jimenez MD [address] ANA MARIA [address] [place], [place] [phone] (Wo rk) Social History Tobacco Use Types Packs/Day Years Used Date Smoking Tobacco: Never Alcohol Use Standard Drinks/Week Comments No 0 (1 standard drink = 0.6 oz pure alcoho l) Sex Assigned at Date Recorded Not on file documented as of this encounter Miscellaneous Notes Dialysis Note - Sebastian Charles MD - 03/30/2022 9:51 AM CDT Date: Mar 30, 2022 Patient Name: David Castro : 1940 Chart #: [id number] Sex: M This patient was personally seen for a complete visit as part of routine monthly dialysis care. A review of the dialysis treatment, blood pressure, estimated dry weight, and recent lab values was made.These were discussed with the patient and staff as necessary. DIRECTOR OF STUDENT FINANCIAL AID: Sebastian Charles MD LOCATION: [phone] SCHEDULE: No Routine Schedule Subjective Tolerating dialysis well. 03/30/22: Georges is doing great. He feels excellent today and has no concerns. Diet is the same with liquid due to swallowing issues but this is going well. Alb was 3.4 last month. He was constipated last week, now on docusate and this is going well and stools are soft and regular. PD is going well, he thinks he didn't collect all his urine with adequacy however and his residual function did drop so thiswill be repeated next month. He denies any uremia symptoms. 03/02/22: Georges feels fantastic. He is walking miles every day. He has no cough or SOB anymore. He has no orthopnea or dyspnea. PD is going smoothly. HE is currently using all 1.5% bags. He brought in adequacy today, UOP was about 750 mL. His weight is at 169 lbs, up a little and he feels tissue weight with increased muscle mass. No edema at all he says. 01/26/22: Georges feels fantastic, back like himself again. HE walked 5 miles with >10,000 steps [id number] already this morning. He has no orthopnea or SOB, wt is lower, dialysis is going very well, and he has his liquid diet figured out and is tolerating protein powder and liquicel. He has no concerns at all today and is very pleased since feeling much better after IV iron infusion at the [facility] that we had arranged. 12/22/21: Georges was unfortunately hospitalized twice since our last visit. He went home and was very weak after I saw him last month on 12/01, went to ER and was admitted at [facility] from 12/02-12/08, had empyemaand chest tube was placed and he was treated with abx. Other etiology such as malignancy or bronchopulm fistula or leak of PD fluid into pleural space considered but diagnostics done were suggestive ofongoing aspiration with infectious empyema and CT was removed after 5 days and he was sent out on abx and has pulm follow-up on 12/27 (virtual visit). He was re-admitted 12/09-12/11 with coffee ground emesis, had EGD with friable mucosa in esophagus with known severe achalasia and PPI was increased to bid. Since discharge, he has resumed his CCPD at 1.5L fills x4 fills over 8hrs at night. He is using all1.5% bags and weight is up 2 Kg with this, he does not have 2.5% bags at home I guess. He is more SOB, walked a mile yesterday but had to stop and rest once and was huffing and puffing which is unusual for him. HE does have mild edema as well. There is also an issue with disconnecting and the pin that is used and there is occasionally some leaking after disconnecting and we decided that we would arrange a home visit with our RN to investigate further and he will try a stat drain at the end of the night to make sure he is emptying completely. Also BP is soft in 100's systolic and he feels dizzy onstanding for a few seconds each time he stands. hydralazine was stopped in the hospital but isosoribde was continued. He is on liquid diet (anything that can go through a straw) and is supplementing protein with two Ensure and liquicil twice per day. 12/01/21: Georges was seen today and says he is now doing very well. Hortensia went to his house (PD RN) and spent 4-5 hrs with him and this helped him a lot. He is not having machine alarms. Using all 1.5% bags. KT/V was adequate >2.0. No edema or SOB. He did have light-headedness and felt faint and went to ER and got 1L saline a few weeks ago. He is not requiring UF much at all with PD at this time and we are decreasing diuretic today. He is also off metoprolol. 10/27/21: Georges is feeling great, edema resolved, no uremia symptoms, PD going well and he is excited toget on the cycler now. Only issue has been that he had small amount of leaking from PD catheter site(clear fluid with no other symptoms) several weeks ago and then again on Monday. First time we rested for a few days without PD and then lowered to 1500 mL fills from 2000 mL and resolved. We rested again for 4 days and are starting today with cycler training and there is no leaking so far and the site looks intact. His weight is lower today and we lowered his dry weight. He is high-avg transporteron PET test as we were expecting. 09/22/21: Georges is anxious about starting PD. He makes comments like he's not sure if it is going to be worth it, he doesn't think it will last on PD and he will need to do in-center (he really wants to avoid this), and repeats his concern that he will not be able to do this. I have tried to repeatedly convince him that things are going really well. His training went fantastic, tolerating exchanges without any issues, PD catheter site looks excellent. Only issue currently is that he is draining less than filling or just reaching what he is putting in, especially with long dwell overnight. In clinic today, we drained him after 2 hr dwell and he put out 2.3L (2L fill) so seems likely a rapid transporter. PET is scheduled and CCPD training will be in about 1 month. Review of Systems None reported. Exam Respiratory - Clear to auscultation bilaterally. Cardiovascular - Regular rate. Regular rhythm. No murmur heard. Gastrointestinal - Normal bowel sounds, soft, non-tender. Edema - No leg edema. PD catheter exit site - looks excellent with no erythema Medication List Medication Sig Start Date allopurinol 100 mg tablet Take 1 tablet by mouth once a day amoxicillin 500 mg capsule Take 4 capsule by mouth once a day as directed. 1 hour before dental procedure. amoxicillin-pot clavulanate 500-125 mg tablet Take 1 tablet by mouth once a day. For 16 days, started December 08 calcitriol 0.25 mcg capsule Take 1 capsule by mouth three times a week. M-W-F Dialyvite (b complex-vitamin c-folic acid) 100-1 mg tablet 1 tablet by mouth once a day. with dinner gentamicin 0.1% cream Apply a small amount to skin once a day as directed metoprolol tartrate 25 mg tablet Take 1 by mouth twice a day omeprazole 20 mg capsule,delayed release(DR/EC) Take 1 capsule by mouth twice a day torsemide 20 mg tablet Take 1 tablet by mouth once a day warfarin 2 mg tablet Take by mouth once a day as directed. by PCP. Allergy List Allergen Reaction Reaction Severity Onset Date Tegretol Unknown Medications reviewed and no changes were made. Treatment and Adequacy Assessment BUN mg/dL 61 (03/02/22) 51 (01/26/22) 34 (12/22/21) CREATININE (MG/DL) IN SER/PLAS mg/dL 4.38 (03/02/22) 3.65 (01/26/22) 3.38 (12/22/21) KT/V, PERITONEAL L/wk 0.80 (03/02/22) 0.70 (11/10/21) 1.15 (10/19/21) KT/V, RESIDUAL L/wk 1.04 (03/02/22) 1.37 (11/10/21) 1.10 (10/19/21) Kt/V is adequate. Continue current prescription. Adequacy last month was borderline, but he thinks he didn't collect all urine and kt/v total is still >1.8 so will repeat next month. If needed, first step to increase prescription would be to increase to 2L fills since leaking is no longer an issue. Peritoneal Dialysis Access Assessment Placed on: 07/[address] Kaur No further leaking from PD cath site Anemia Assessment HEMOGLOBIN (G/DL) IN BLOOD g/dL 13.0 (03/02/22) 12.2 (01/26/22) 10.7 (01/12/22) WBC (BLOOD) 1000/mcL 7.30 (03/02/22) 8.03 (01/26/22) 6.40 (12/22/21) IRON SATURATION % 29 (01/26/22) 7 (12/22/21) 12 (12/01/21) FERRITIN ng/mL 61 (03/02/22) 306 (01/26/22) 66 (12/01/21) Hemoglobin is at goal. Iron Saturation is at goal. Ferritin is below goal. Will adjust SIRISHA and intravenous iron. Repeat Hgb and iron studies today, hold off additional IV iron for now but will follow-up labs today Nutritional and Metabolic Assessment ALBUMIN (G/DL) g/dL 3.4 (03/02/22) 3.4 (01/26/22) 2.7 (12/22/21) BICARBONATE (CO2) mEq/L 32 (03/02/22) 28 (01/26/22) 28 (12/22/21) POTASSIUM (MMOL/L) IN SER/PLAS mEq/L 4.0 (03/02/22) 3.9 (01/26/22) 4.0 (12/22/21) Sodium mEq/L 138 (03/02/22) 138 (01/26/22) 140 (12/22/21) 25 OH VITAMIN D ng/mL 37.5 (09/13/21) Albumin is below goal. Encourage high biological value protein intake. Oral nutritional supplement program. Potassium is at goal. He has now figured out liquid diet and tolerating liquid and powder protein and will use Nepro as well. Repeat albumin improving and hope to see this 3.5 or higher this month Bone and Mineral Metabolism Assessment CALCIUM mg/dL 8.9 (03/02/22) 8.6 (01/26/22) 7.9 (12/22/21) CALCIUM (MG/DL) CORRECTED FOR ALBUMIN IN SER/PLAS mg/dL 9.4 (03/02/22) 9.1 (01/26/22) 8.9 (12/22/21) CALCIUM PHOSPHORUS PRODUCT, COR 42 (03/02/22) 43 (01/26/22) 29 (12/22/21) PHOSPHATE (MG/DL) IN SER/PLAS mg/dL 4.5 (03/02/22) 4.7 (01/26/22) 3.3 (12/22/21) IPTH pg/mL 263 (03/02/22) 190 (12/01/21) 154 (09/22/21) Corrected calcium is at goal. Phosphorus is at goal. Intact PTH is at goal. Cardiovascular Assessment Blood pressure reviewed and is acceptable. Continue same cardiovascular medications. Estimated dry weight is too low, will increase. Continue all 1.5% bags Increase EDW by 0.5 Kg Transplant Status Patient declined to be evaluated. He was evaluated on past, on hold for years, now advanced age and he has elected to not pursue any further given risks associated with transplant and his GI issues as well. Resuscitation Status Additional Comments: He is now doing fantastic Albumin improving with supplementation, repeat today Hgb improved with IV iron, iron on low side again. He is not much iron in diet, will re-check iron studies today Increase EDW slightly as he has gained weight Repeat adequacy next month Labs today Sebastian Charles MD [ Signed And locked electronically On 03/30/2022 at 09:55:07 AM ] Transcribed: Sebastian Charles ( 03/30/2022 ) documented in this encounter Plan of Treatment Not on filedocumented as of this encounter Visit Diagnoses Not on filedocumented in this encounter Care Teams Linoleum Layer Apprentice Relationship Specialty Start Date End Date Harish Silver MD PCP - General 05/17/19 [address] [place] [address] documented as of this encounter
--- OUTSIDE RECORDS SUMMARY | 2022-03-31 20:38 | XMS_ITS | Encounter Summary ---
:1940 Author Organization [facility] Address [address] [place] [address] Care Team Providers Name Role Phone Unavailable Primary Care Provider Unavailable Encounter Details Date Type Department Care Team Description 02/14/2019 Hospital Encounter Department of Marilin, Achalasi a; Laboratory Medicine Subhankar, Cough Wi th Hemorrhage; and Pathology, M.B.B.S. Shortness Of Breath; [facility], in Dysphagi a; [facility] Gastroesophagea l Reflux Disease Without Esophagitis; [place] Laparoscopic Myotomy For Ach alasia Status Post; [address] [facility] Chronic Kidney Disease Stage 4 Glomerular Filtration Rate 15-29 (HCC) [place] [phone] Social History Tobacco Use Types Packs/Day Years Used Date Smoking Tobacco: Never Social Isolation Answer Date Recorded In a typical week, how many times do you Once a week 02/14/2019 talk on the phone with family, friends, or neighbors? How often do you get together with friends More than three t imes a week 02/14/2019 or relatives? How often do you attend sikh or More than 4 times per year 02/14/2019 tenriism services? Do you belong to any clubs or No 02/14/2019 organizations such as sikh groups, unions, fraternal or athletic groups, or [...] Laboratory Medicine Mehrdad Lazcano APRN, C.N.P. [address] [place] [address] 04/04/2022 Appointment Cardiovascular Disease Mehrdad Lazcano APRN, C.N.P. [address] [place] [address] 04/05/2022 Ancillary Procedure Cardiovascular Disease Kayla Heredia M.D. [address] [place] [phone] 04/05/2022 Appointment Cardiovascular Disease Jessa Heredia M.D. [address] [place] [phone] 04/12/2022 Clinical Communication Admitting/Central Scheduling 04/15/2022 Comprehensive Visit Cardiovascular Disease Kayla Heredia M.D. [address] [place] [phone] documented as of this encounter Procedures Procedure Name Priority Date/Time Associated Comments Diagnosis MICROSCOPIC AUTOMATED Routine 02/14/2019 10:57 Re sults for this AM CDT procedure are i n the results section. ALBUMIN, RANDOM, U Routine 02/14/2019 10:57 Achalasia Results for this AM CDT Cough With procedure are i n Hemorrhage the results Shortness Of Ankita ath section. Dysphagia Gastroesophageal Reflux Disease Without Esophagi tis Laparoscopic Myotomy For Achalasia Status Post Chronic Kidney Disease Stage 4 Glomerular Filtration Rate 15-29 (HCC) URINALYSIS WITH Routine 02/14/2019 10:57 Achalasia Results for this MICROSCOPIC AM CDT Cough With procedure are i n Hemorrhage the results Shortness Of Ankita ath section. Dysphagia Gastroesophageal Reflux Disease Without Esophagi tis Laparoscopic Myotomy For Achalasia Status Post Chronic Kidney Disease Stage 4 Glomerular Filtration Rate 15-29 (HCC) documented in this encounter Results Microscopic Automated (02/14/2019 10:57 AM CDT) athologist Signature Microscopy Normal 02/14/2019 12:15 PM CDT WBC 1-3 /hpf 02/14/2019 12:15 PM CDT Comment: ----REFERENCE VALUE---- 1-3 ??(Males) 1-10 (Females) Specimen Anatomical Collection Method Collection Time Receive d Time (Source) Location / / Volume Laterality Urine 02/14/2019 10:57 02/14/2019 AM CDT 10:57 AM CDT Darwin RicoSBailey LAB URINE ORDERABLES Performing Organization Address City/State/ZIP Code Phon e Number [facility] - [address] [place], [place] [address] [facility] (ABNORMAL) Microalbumin, Random, Urine (02/14/2019 10:57 AM CDT) athologist Signature Microalbumin 101.0 mg/L 02/14/2019 11:27 AM CDT Comment: ----ADDITIONAL INFORMATION---- This test has been modified from the man ufacturer's instructions. Its performance characteri stics were determined by [facility] in a manner co nsistent with [...] Clean Catch) AM CDT 10:57 AM CDT Subhankar Marilin M.B.B.S. LAB URINE ORDERABLES Performing Organization Address City/[facility]/ZIP Code Phon e Number [facility] - [address] (ABNORMAL) Urinalysis with Microscopic: Urine, Clean Catch (02/14/2019 10:57 AM CDT) [facility] Method Time Signature Source Midstream 02/14/2019 10:57 AM CDT Appearance Normal Normal 02/14/2019 11:27 AM CDT Osmolality, U 412 150 - 1150 02/14/2019 mOsm/kg 12:21 PM CDT pH, U 5.4 4.5 - 8.0 02/14/2019 12:21 PM CDT Comment: ----ADDITIONAL INFORMATION---- This test was developed and its performa nce characteristics determined by [facility] in a manner co nsistent with [...] Giles LAB URINE ORDERABLES Performing Organization Address City/[facility]/ZIP Code Phon e Number [facility] - [address] [place] [phone] [facility] documented in this encounter Visit Diagnoses Diagnosis Achalasia Cough With Hemorrhage Shortness Of Breath Dysphagia Gastroesophageal Reflux Disease Without Esophagitis Laparoscopic Myotomy For Achalasia Statu s Post Chronic Kidney Disease Stage 4 Glomerula r Filtration Rate 15-29 (HCC) documented in this encounter
--- OUTSIDE RECORDS SUMMARY | 2022-03-31 20:38 | XMS_ITS | Encounter Summary ---
:1940 Author Organization [facility] Address [address] [place] [address] Care Team Providers Name Role Phone Unavailable Primary Care Provider Unavailable Encounter Details Date Type Department Care Team Description 02/14/2019 Hospital Encounter Department of Mariiln, Achalasi a; Laboratory Medicine Subhankar, Cough Wi th Hemorrhage; and Pathology, M.B.B.S. Shortness Of Breath; [facility], in Dysphagi a; [facility] Gastroesophagea l Reflux Disease Without Esophagitis; [place] Laparoscopic Myotomy For Ach alasia Status Post; [address] [facility] Chronic Kidney Disease Stage 4 Glomerular Filtration Rate 15-29 (HCC) [place] [address] Social History Tobacco Use Types Packs/Day Years Used Date Smoking Tobacco: Never Social Isolation Answer Date Recorded In a typical week, how many times do you Once a week 02/14/2019 talk on the phone with family, friends, or neighbors? How often do you get together with friends More than three t imes a week 02/14/2019 or relatives? How often do you attend taoism or More than 4 times per year 02/14/2019 gnosticism services? Do you belong to any clubs or No 02/14/2019 organizations such as taoism groups, unions, fraternal or athletic groups, or [...] Laboratory Medicine Mehrdad Lazcano APRN, C.N.P. [address] [place] [address] 04/04/2022 Appointment Cardiovascular Disease Mehrdad Lazcano APRN, C.N.P. [address] [place] [address] 04/05/2022 Ancillary Procedure Cardiovascular Disease Kayla Heredia M.D. [address] [place] [phone] 04/05/2022 Appointment Cardiovascular Disease Jessa Heerdia M.D. [address] [place] [phone] 04/12/2022 Clinical Communication Admitting/Central Scheduling 04/15/2022 Comprehensive Visit Cardiovascular Disease Kayla Heredia M.D. [address] [place] [phone] documented as of this encounter Procedures Procedure Name Priority Date/Time Associated Comments Diagnosis RENAL FUNCTION PANEL, Routine 02/14/2019 10:20 Achalasia Results for this S AM CDT Cough With procedure are i n Hemorrhage the results Shortness Of Ankita ath section. Dysphagia Gastroesophageal Reflux Disease Without Esophagi tis Laparoscopic Myotomy For Achalasia Status Post Chronic Kidney Disease Stage 4 Glomerular Filtration Rate 15-29 (HCC) ALKALINE PHOSPHATASE, Routine 02/14/2019 10:20 Achalasia Results for this TOT AND ISOENZYMES, S AM CDT Cough With proced ure are in Hemorrhage the results Shortness Of Ankita ath section. Dysphagia Gastroesophageal Reflux Disease Without Esophagi tis Laparoscopic Myotomy For Achalasia Status Post Chronic Kidney Disease Stage 4 Glomerular Filtration Rate 15-29 (HCC) 25-HYDROXYVITAMIN D2 Routine 02/14/2019 10:20 Achalasia Results for this AND D3, S AM CDT Cough With procedure are i n Hemorrhage the results Shortness Of Ankita ath section. Dysphagia Gastroesophageal Reflux Disease Without Esophagi tis Laparoscopic Myotomy For Achalasia Status Post Chronic Kidney Disease Stage 4 Glomerular Filtration Rate 15-29 (HCC) PROTHROMBIN TIME Routine 02/14/2019 10:20 Achalasia Results for this (PT), P AM CDT Cough With procedure are i n Hemorrhage the results Shortness Of Ankita ath section. Dysphagia Gastroesophageal Reflux Disease Without Esophagi tis Laparoscopic Myotomy For Achalasia Status Post Chronic Kidney Disease Stage 4 Glomerular Filtration Rate 15-29 (HCC) CBC WITH Routine 02/14/2019 10:20 Achalasia Results for this DIFFERENTIAL, B AM CDT Cough With procedure ar e in Hemorrhage the results Shortness Of Ankita ath section. Dysphagia Gastroesophageal Reflux Disease Without Esophagi tis Laparoscopic Myotomy For Achalasia Status Post Chronic Kidney Disease Stage 4 Glomerular Filtration Rate 15-29 (HCC) URIC ACID, S/P Routine 02/14/2019 10:20 Achalasia Results for this AM CDT Cough With procedure are i n Hemorrhage the results Shortness Of Ankita ath section. Dysphagia Gastroesophageal Reflux Disease Without Esophagi tis Laparoscopic Myotomy For Achalasia Status Post Chronic Kidney Disease Stage 4 Glomerular Filtration Rate 15-29 (HCC) PARATHYROID HORMONE Routine 02/14/2019 10:20 Achalasia Results for this (PTH), S AM CDT Cough With procedure are i n Hemorrhage the results Shortness Of Ankita ath section. Dysphagia Gastroesophageal Reflux Disease Without Esophagi tis Laparoscopic Myotomy For Achalasia Status Post Chronic Kidney Disease Stage 4 Glomerular Filtration Rate 15-29 (HCC) documented in this encounter Results (ABNORMAL) Prothrombin Time (PT/INR) (02/14/2019 10:20 AM CDT) [facility] Method Time Signature Prothrombin 15.1 [...] Organization Address City/State/ZIP Code Phon e Number [facility] - [address] [place], [place] [address] [facility] (ABNORMAL) Alkaline Phosphatase, Total and Isoenzymes (02/14/2019 10:20 AM CDT) [facility] gist Method Time Signature Alkaline 302 (H) [...] Venous) AM CDT 10:41 AM CDT Narrative [facility] - [facility] - 02/15/2019 12:05 PM CDT Specimen Information: Specimen ID: [id number] Specimen Type: Blood Specimen Collection Start Date: 02/15/20 19 10:20 AM Specimen Received Date: 02/14/2019 10:41 AM Specimen ID: [id number] Specimen Type: Blood Specimen Collection Start Date: 02/15/20 10:20 AM Specimen Received Date: 02/14/2019 11:22 AM Darwin RicoSBailey LAB BLOOD NON ADD-ON Performing Organization Address City/[facility]/ZIP Code Phon e Number [facility] - [address] (ABNORMAL) PTH (Parathyroid Hormone) (02/14/2019 10:20 AM CDT) Analysis Performed At Patho logist Time Signature Parathyroid 103 (H) 15 - 65 02/14/2019 Hormone (PTH), S pg/mL 12:03 PM CDT Specimen Anatomical Collection Method Collection Time Receive d Time (Source) Location / / Volume Laterality Blood (Blood, 02/14/2019 10:20 02/14/2019 Venous) AM CDT 10:41 AM CDT Darwin RicoS. LAB BLOOD ADD-ON Performing Organization Address [facility] Code Phon e Number [facility] - [address] 25-Hydroxyvitamin D2 and D3 (02/14/2019 10:20 AM CDT) P athologist Signature 25-Hydroxy D2 <4.0 ng/mL 02/15/2019 [...] and its performa nce characteristics determined by [facility] in a manner consistent with CLIA requirements. This test has not been cleared or approved by the [place] d and Drug Administration. Specimen Anatomical Collection Method Collection Time Receive d Time (Source) Location / / Volume Laterality Blood (Blood, 02/14/2019 10:20 02/14/2019 1:36 Venous) AM CDT PM CDT Darwin Giles LAB BLOOD ADD-ON Performing Organization Address City/State/ZIP Code Phon e Number [facility] [address] [place] [phone] [facility] Uric Acid (02/14/2019 10:20 AM CDT) P athologist Signature Uric Acid, S 6.2 3.7 - 8.0 02/14/2019 mg/dL 12:03 PM CDT Specimen Anatomical Collection Method Collection Time Receive d Time (Source) Location / / Volume Laterality Blood (Blood, 02/14/2019 10:20 02/14/2019 Venous) AM CDT 10:41 AM CDT Darwin Giles LAB BLOOD ADD-ON Performing Organization Address City/State/ZIP Code Phon e Number [facility] - [address] [place] [phone] [facility] (ABNORMAL) CBC with Differential (02/14/2019 10:20 AM CDT) Patholo gist Method Time Signature Hemoglobin 13.7 13.2 - [...] Organization Address City/State/ZIP Code Phon e Number [facility] - [address] (ABNORMAL) Renal Function Panel (02/14/2019 10:20 AM [...] >=60 02/14/2019 Black/ mL/min/BSA 12:03 PM CDT [place] Comment: ----ADDITIONAL INFORMATION---- Estimated GFR calculated using [...] Venous) AM CDT 10:41 AM CDT Darwin iGles LAB BLOOD ADD-ON Performing Organization Address City/State/ZIP Code Phon e Number [facility] - [address] [place], [place] [address] [facility] documented in this encounter Visit Diagnoses Diagnosis Achalasia Cough With Hemorrhage Shortness Of Breath Dysphagia Gastroesophageal Reflux Disease Without Esophagitis Laparoscopic Myotomy For Achalasia Statu s Post Chronic Kidney Disease Stage 4 Glomerula r Filtration Rate 15-29 (HCC) documented in this encounter
--- OUTSIDE RECORDS SUMMARY | 2022-03-31 20:38 | XMS_ITS | Encounter Summary ---
:1940 Author Organization [facility] Address [address] [place] [address] Care Team Providers Name Role Phone Unavailable Primary Care Provider Unavailable Encounter Details Date Type Department Care Team Description 07/30/2003 - Hospital Encounter HX RST SLEEP FLOOR Shivam, 08/06/2003 PRACTICE Juan Pablo Purdy M.D. [address] [place] [address] Social History Tobacco Use Types Packs/Day Years Used Date Smoking Tobacco: Never Assessed Social Isolation Answer Date Recorded In a typical week, how many times do you Once a week 02/14/2019 talk on the phone with family, friends, or neighbors? How often do you get together with friends More than three t imes a week 02/14/2019 or relatives? How often do you attend religious or More than 4 times per year 02/14/2019 anabaptist services? Do you belong to any clubs or No 02/14/2019 organizations such as religious groups, unions, fraternal or athletic groups, or [...] Laboratory Medicine Mehrdad Lazcano APRN, C.N.P. [address] [place] [address] 04/04/2022 Appointment Cardiovascular Disease Mehrdad Lazcano APRN, C.N.P. [address] [place] [address] 04/05/2022 Ancillary Procedure Cardiovascular Disease Kayla Heredia M.D. [address] [place] [phone] 04/05/2022 Appointment Cardiovascular Disease Jessa Heredia M.D. [address] [place] [phone] 04/12/2022 Clinical Communication Admitting/Central Scheduling 04/15/2022 Comprehensive Visit Cardiovascular Disease Kayla Heredia M.D. [address] [place] [phone] documented as of this encounter Visit Diagnoses Not on filedocumented in this encounter
[2022-03-31 20:39] LABS: Chloride* 97 mmol/L (96-114)
--- OUTSIDE RECORDS SUMMARY | 2022-03-31 20:39 | XMS_ITS | Encounter Summary ---
:1940 Author Organization [facility] Address [address] [place] [address] Care Team Providers Name Role Phone Harish Silver MD Primary Care Provider Encounter Details Date Type Department Care Team Description 12/22/2021 Treatment [facility] Sebastian Jimenez MD [address] [place] [address] [place], [place] [phone] (Wo rk) Social History Tobacco Use Types Packs/Day Years Used Date Smoking Tobacco: Never Alcohol Use Standard Drinks/Week Comments No 0 (1 standard drink = 0.6 oz pure alcoho l) Sex Assigned at Date Recorded Not on file documented as of this encounter Miscellaneous Notes Dialysis Note - Sebastian Charles MD - 12/22/2021 11:02 AM CDT Date: December 22, 2021 Patient Name: David Castro : 1940 Chart #: [id number] Sex: M This patient was personally seen for a complete visit as part of routine monthly dialysis care. A review of the dialysis treatment, blood pressure, estimated dry weight, and recent lab values was made.These were discussed with the patient and staff as necessary. BULK PLANT AGENT: eSbastian Charles MD LOCATION: [phone] SCHEDULE: No Routine Schedule Subjective 12/22/21: Georges was unfortunately hospitalized twice since our last visit. He went home and was very weak after I saw him last month on 12/01, went to ER and was admitted at [facility] from 12/02-12/08, had empyemaand chest tube was [...] of Systems None reported. Exam Respiratory - Decreased BS's L lung to mid lung, clear on R Cardiovascular - Regular rate. Regular rhythm. Gastrointestinal - Normal bowel sounds, soft, non-tender. Edema - 1+ leg edema. b/l PD catheter exit site - looks excellent with minimal erythema at exit site only Medication List Medication Sig Start Date allopurinol 100 mg tablet Take 1 tablet by mouth once a day amoxicillin 500 mg capsule Take 4 capsule by mouth once a day as directed. 1 hour before dental procedure. calcitriol 0.25 mcg capsule Take 1 capsule by mouth three times a week. M-W- hydralazine 10 mg tablet Take 1 tablet by mouth three times a day isosorbide dinitrate 5 mg tablet Take 1 tablet by mouth three times a day omeprazole 20 mg capsule,delayed release(DR/EC) Take 1 capsule by mouth once a day torsemide 20 mg tablet Take 1 tablet by mouth twice a day warfarin 2 mg tablet Take by mouth once a day as directed. by PCP. Allergy List Allergen Reaction Reaction Severity Onset Date Tegretol Unknown Medications reviewed with changes as indicated below. PPI is now bid, I am stopping isosorbide as well today Treatment and Adequacy Assessment BUN mg/dL 57 (12/01/21) 77 (11/10/21) 74 (10/19/21) CREATININE (MG/DL) IN SER/PLAS mg/dL 3.65 (12/01/21) 4.40 (11/10/21) 4.34 (10/19/21) KT/V, PERITONEAL L/wk 0.70 (11/10/21) 1.15 (10/19/21) KT/V, RESIDUAL L/wk 1.37 (11/10/21) 1.10 (10/19/21) Kt/V is adequate. Adequacy was excellent with 8L of fluid on CAPD. Adequacy still excellent with 6L fluid on CCPD, will continue this for now although may need to consider extending treatment in future if adequacy dropsas dwell time for each fill is only 1.5hr currently Peritoneal Dialysis Access Assessment Placed on: 07/[address] Kaur No further leaking from PD cath site Anemia Assessment HEMOGLOBIN (G/DL) IN BLOOD g/dL 11.0 (12/01/21) 12.2 (10/19/21) 12.1 (09/22/21) WBC (BLOOD) 1000/mcL 6.62 (12/01/21) 7.38 (10/19/21) 4.99 (09/22/21) IRON SATURATION % 12 (12/01/21) 18 (10/19/21) 18 (09/22/21) FERRITIN ng/mL 66 (12/01/21) 31 (09/13/21) Hemoglobin is at goal. Iron Saturation is below goal. Ferritin is below goal. Will adjust SIRISHA and intravenous iron. Nutritional and Metabolic Assessment ALBUMIN (G/DL) g/dL 3.1 (12/01/21) 3.5 (10/19/21) 3.8 (09/22/21) BICARBONATE (CO2) mEq/L 32 (12/01/21) 28 (10/19/21) 31 (09/22/21) POTASSIUM (MMOL/L) IN SER/PLAS mEq/L 4.3 (12/01/21) 3.8 (10/19/21) 3.7 (10/06/21) Sodium mEq/L 141 (12/01/21) 141 (10/19/21) 143 (09/22/21) 25 [place] VITAMIN D ng/mL 37.5 (09/13/21) Albumin is below goal. Encourage high biological value protein intake. Oral nutritional supplement program. Potassium is at goal. Albumin may be an ongoing problem with achalasia and liquid diet only now with ongoing aspiration. Feeding tube was considered in hospital at [facility] but he declined. He is having liquid meals currently and supplementing with liquicel twice per day and Ensure 2 cans per day and we could also put protein powder in his liquid meals if needed. Repeat albumin to be done today. Bone and Mineral Metabolism Assessment Calcium mg/dL 8.5 (12/01/21) 8.4 (10/19/21) 8.7 (09/22/21) CALCIUM (MG/DL) CORRECTED FOR ALBUMIN IN SER/PLAS mg/dL 9.2 (12/01/21) 8.8 (10/19/21) 8.9 (09/22/21) CALCIUM PHOSPHORUS PRODUCT, COR 34 (12/01/21) 37 (10/19/21) 28 (09/22/21) PHOSPHATE (MG/DL) IN SER/PLAS mg/dL 3.7 (12/01/21) 4.2 (10/19/21) 3.1 (09/22/21) IPTH pg/mL 190 (12/01/21) 154 (09/22/21) 188 (09/13/21) Corrected calcium is at goal. Phosphorus is at goal. Intact PTH is at goal. Cardiovascular Assessment Blood pressure reviewed and is not at goal, see below. Continue same cardiovascular medications. Estimated dry weight is appropriate. Will stop isosorbide today with orthostatic symptoms and soft BP Need 2.5% bags to get fluid off with PD as he is over dry weight and fluid up on exam Transplant Status Patient declined to be evaluated. He was evaluated on past, on hold for years, now advanced age and he has elected to not pursue any further given risks associated with transplant and his GI issues as well. Resuscitation Status Additional Comments: He is now ok on PD, but a number of issues to address today Monthly labs are being drawn We are working on nutrition and supplemental protein with his liquid diet as discussed above He was hospitalized with empyema, has pleural fluid on R lung today by exam and he has pulm f/u early next week. We will work to UF with PD prior to this as he is volume up. If this is recurrent and non-infectious, we may need to look into hydrothorax from peritoneal fluid as this was not done at [facility] as it was thought to be unlikely given appeared infectious empyema. Stop isosorbide today, monitor BP and orthostatic symptoms Home RN visit to assess how he is taking himself off and the pin malfunction he is having Consider stat drain when taking himself off if negative UF on 2.5% bags to ensure not retaining fluid from sleeping position Sebastian Charles MD [ Signed And locked electronically On 12/22/2021 at 11:14:23 AM ] Transcribed: Sebastian Charles ( 12/22/2021 ) documented in this encounter Plan of Treatment Not on filedocumented as of this encounter Visit Diagnoses Not on filedocumented in this encounter Care Teams Fisheries Enforcement Officer Relationship Specialty Start Date End Date Harish Silver MD PCP - General 05/17/19 [address] [place] [address] documented as of this encounter
--- OUTSIDE RECORDS SUMMARY | 2022-03-31 20:39 | XMS_ITS | Encounter Summary ---
:1940 Author Organization [facility] Address [address] [place] [address] Care Team Providers Name Role Phone Harish Silver MD Primary Care Provider Encounter Details Date Type Department Care Team Description 03/02/2022 Treatment [facility] Sebastian Jimenez MD [address] [address] [place], [place] [phone] (Wo rk) Social History Tobacco Use Types Packs/Day Years Used Date Smoking Tobacco: Never Alcohol Use Standard Drinks/Week Comments No 0 (1 standard drink = 0.6 oz pure alcoho l) Sex Assigned at Date Recorded Not on file documented as of this encounter Miscellaneous Notes Dialysis Note - Sebastian Charles MD - 03/02/2022 10:15 AM CDT Date: Mar 02, 2022 Patient Name: David Castro : 1940 Chart #: [id number] Sex: M This patient was personally seen for a complete visit as part of routine monthly dialysis care. A review of the dialysis treatment, blood pressure, estimated dry weight, and recent lab values was made.These were discussed with the patient and staff as necessary. CRITICAL CARE NURSE: Sebastian Charles MD LOCATION: [phone] SCHEDULE: No Routine Schedule Subjective 03/02/22: Georges feels fantastic. He is walking [...] HE walked 5 miles with >10,000 steps [id number] already this morning. He has no orthopnea or SOB, wt is lower, dialysis is going very well, and he has his liquid diet figured out and is tolerating protein powder and liquicel. He has no concerns at all today and is very pleased since feeling much better after IV iron infusion at the [facility] that we had arranged. 12/22/21: Georges was unfortunately hospitalized twice since our last visit. He went home and was very weak after I saw him last month on 12/01, went to ER and was admitted at [facility] from 12/02-12/08, had empyemaand chest tube was [...] Exam Respiratory - Clear to auscultation bilaterally. nl effort Cardiovascular - Regular rate. Regular rhythm. No [...] made. Treatment and Adequacy Assessment BUN mg/dL 51 (01/26/22) 34 (12/22/21) 57 (12/01/21) CREATININE (MG/DL) IN SER/PLAS mg/dL 3.65 (01/26/22) 3.38 (12/22/21) 3.65 (12/01/21) KT/V, PERITONEAL L/wk 0.70 (11/10/21) 1.15 (10/19/21) KT/V, RESIDUAL L/wk 1.37 (11/10/21) 1.10 (10/19/21) Kt/V is adequate. Continue current prescription. Adequacy today Peritoneal Dialysis Access Assessment Placed on: 07/[address] Kaur No further leaking from PD cath site Anemia Assessment HEMOGLOBIN (G/DL) IN BLOOD g/dL 12.2 (01/26/22) 10.7 (01/12/22) 8.3 (12/22/21) WBC (BLOOD) 1000/mcL 8.03 (01/26/22) 6.40 (12/22/21) 6.62 (12/01/21) IRON SATURATION % 29 (01/26/22) 7 (12/22/21) 12 (12/01/21) FERRITIN ng/mL 306 (01/26/22) 66 (12/01/21) 31 (09/13/21) Hemoglobin is at goal. Iron Saturation is at goal. Ferritin is at goal. Will adjust SIRISHA and intravenous iron. Improved iron with IV iron, Hgb improved as well. No SIRISHA needed at this time with Hgb >11 Nutritional and Metabolic Assessment ALBUMIN (G/DL) g/dL 3.4 (01/26/22) 2.7 (12/22/21) 3.1 (12/01/21) BICARBONATE (CO2) mEq/L 28 (01/26/22) 28 (12/22/21) 32 (12/01/21) POTASSIUM (MMOL/L) IN SER/PLAS mEq/L 3.9 (01/26/22) 4.0 (12/22/21) 4.3 (12/01/21) Sodium mEq/L 138 (01/26/22) 140 (12/22/21) 141 (12/01/21) 25 OH VITAMIN D ng/mL 37.5 (09/13/21) Albumin is below goal. Encourage high biological value protein intake. Oral nutritional supplement program. Potassium is at goal. He has now figured out liquid diet and tolerating liquid and powder protein. Repeat albumin improving nicely, hope to see improved again today Bone and Mineral Metabolism Assessment CALCIUM mg/dL 8.6 (01/26/22) 7.9 (12/22/21) 8.5 (12/01/21) CALCIUM (MG/DL) CORRECTED FOR ALBUMIN IN SER/PLAS mg/dL 9.1 (01/26/22) 8.9 (12/22/21) 9.2 (12/01/21) CALCIUM PHOSPHORUS PRODUCT, COR 43 (01/26/22) 29 (12/22/21) 34 (12/01/21) PHOSPHATE (MG/DL) IN SER/PLAS mg/dL 4.7 (01/26/22) 3.3 (12/22/21) 3.7 (12/01/21) IPTH pg/mL 190 (12/01/21) 154 (09/22/21) 188 (09/13/21) Corrected calcium is at goal. Phosphorus is at goal. Intact PTH is at goal. Cardiovascular Assessment Blood pressure reviewed and is acceptable. Continue same cardiovascular medications. Estimated dry weight is too low, will increase. Continue all 1.5% bags Increase EDW to 169 lbs Transplant Status Patient declined to be evaluated. He was evaluated on past, on hold for years, now advanced age and he has elected to not pursue any further given risks associated with transplant and his GI issues as well. Resuscitation Status Additional Comments: He is now doing fantastic Albumin improving with supplementation, repeat today Hgb improved with IV iron, not on SIRISHA Increasing EDW as gained muscle mass, looked euvolemic today PD going very well Sebastian Charles MD [ Signed And locked electronically On 03/02/2022 at 10:18:30 AM ] Transcribed: Sebastian Charles ( 03/02/2022 ) documented in this encounter Plan of Treatment Not on filedocumented as of this encounter Visit Diagnoses Not on filedocumented in this encounter Care Teams Corporate Sales Manager Relationship Specialty Start Date End Date Harish Silver MD PCP - General 05/17/19 [address] [place] [address] documented as of this encounter
--- OUTSIDE RECORDS SUMMARY | 2022-03-31 20:39 | XMS_ITS | Encounter Summary ---
:1940 Author Organization [facility] Address [address] [place] [address] Care Team Providers Name Role Phone Harish Silver MD Primary Care Provider Encounter Details Date Type Department Care Team Description 12/01/2021 Orders Only [facility] f Sebastian Mohan MD [phone] [place] [address] [place], [place] [phone] (Wo rk) Social History Tobacco Use Types Packs/Day Years Used Date Smoking Tobacco: Never Alcohol Use Standard Drinks/Week Comments No 0 (1 standard drink = 0.6 oz pure alcoho l) Sex Assigned at Date Recorded Not on file documented as of this encounter Plan of Treatment Not on filedocumented as of this encounter Procedures Procedure Name Priority Date/Time Associated Diagnosis Comme nts IMMUNO CHEMISTRY Routine 12/01/2021 Results for this procedure are in the resu lts section. HEMATOLOGY Routine 12/01/2021 Results for thi s procedure are in the resu lts section. CHEMISTRY Routine 12/01/2021 Results for thi s procedure are in the resu lts section. CHEMISTRY Routine 12/01/2021 Results for thi s procedure are in the resu lts section. documented in this encounter Results (ABNORMAL) HEMATOLOGY (12/01/2021) [facility] Method Time Signature WBC 6.62 4.80 - [facility] 10.80 [facility] 1000/mcL RBC 3.43 (L) 4.70 - [facility] 6.10 [facility] mill/mcL Hemoglobin 11.0 (L) 14.0 - [facility] 18.0 g/dL [facility] Hemoglobin x 3 33.0 (L) 42.0 - [facility] 54.0 % [facility] Hematocrit 33.7 (L) 42.0 - [facility] 52.0 % [facility] MCV 98 80 - 100 [facility] fl [facility] MCH 32.0 (H) 27.0 - [facility] 31.0 pg [facility] MCHC 32.5 30.0 - [facility] 36.0 g/dL [facility] RDW 12.9 11.5 - [facility] 14.5 % [facility] Neutrophils 75.3 (H) 40.0 - [facility] 75.0 % [facility] Lymphocytes 8.6 (L) 19.0 - [facility] Relative 48.0 % [facility] Monocytes 8.4 3.0 - 10.0 [facility] % [facility] Eosinophils 4.4 0.0 - 7.0 [facility] Relative % [facility] Basophils 2.0 (H) 0.0 - 1.5 [facility] Relative % [facility] JUAN ANTONIO 1.2 0.0 - 4.0 [facility] % [facility] Specimen (Source) Anatomical Collection Method Collection Time Re ceived Time Location / / Volume Laterality 12/01/2021 2021 9:31 AM CDT Narrative [facility] - 2021 Unless otherwise specified, test(s) performed at: [facility], [address] [place] [address] APPLICATIONS PROGRAMMER ANALYST: Steve Younger M.D. For any questions, please call customer service at FREQUENCY:MONTHLY Resulting Agency Comment Specimen source: Blood Sebastian Charles MD LAB BLOOD ORDERABLES Performing Organization Address City/State/ZIP Code Phon e Number [facility] IMMUNO CHEMISTRY (12/01/2021) P athologist Signature Hep B Surface Negative Negative [facility] Ag [facility] Specimen (Source) Anatomical Collection Method Collection Time Re ceived Time Location / / Volume Laterality 12/01/2021 2021 10:2 4 AM CDT Resulting Agency Comment Specimen source: Serum Sebastian Charles MD LAB BLOOD ORDERABLES Performing Organization Address City/State/ZIP Code Phon e Number [facility] (ABNORMAL) [facility] Chemistry (12/01/2021) Patholo gist Method Time Signature Ferritin 66 22 - 322 [facility] ng/mL [facility] BUN 57 (H) 6 - 19 [facility] mg/dL [facility] Creatinine 3.65 (H) 0.60 - [facility] 1.30 mg/dL [facility] BUN/Creatinine 15.6 10.0 - [facility] Ratio 20.0 [facility] Sodium 141 136 - 145 [facility] mEq/L [facility] Potassium 4.3 3.5 - 5.1 [facility] mEq/L [facility] Chloride 100 96 - 108 [facility] mEq/L [facility] Bicarbonate 32 (H) 22 - 29 [facility] (CO2) mEq/L [facility] Calcium 8.5 8.4 - 10.2 [facility] mg/dL [facility] Corrected 9.2 8.4 - 10.2 [facility] Calcium mg/dL [facility] Comment: Corrected Calcium is not equivalent to m easured Ionized Calcium. Phosphorus 3.7 2.6 - 4.5 mg/dL [facility] Calcium Phosphorus Product 31 0 - 54 [facility] Calcium Phosporus Product, Cor 34 0 - 54 [facility] Alkaline Phosphatase 429 (H) 40 - 129 U/L [facility]PS SP ECTRA [facility] Albumin 3.1 (L) 3.5 - 5.2 g/dL [facility] Magnesium 1.9 1.6 - 2.6 mg/dL [facility] Iron 36 (L) 45 - 160 mcg/dL [facility] UIBC 273 155 - 355 mcg/dL [facility] TIBC 309 185 - 515 mcg/dL [facility] Iron Saturation (TSat) 12 (L) 20 - 55 % [facility]PS SPE CTRA [facility] Specimen (Source) Anatomical Collection Method Collection Time Re ceived Time Location / / Volume Laterality 12/01/2021 2021 10:2 4 AM CDT Narrative [facility] - 2021 Unless otherwise specified, test(s) performed at: [facility], [address] [place] [address] APPLICATIONS PROGRAMMER ANALYST: Steve Younger M.D. For any questions, please call customer service at FREQUENCY:MONTHLY Resulting Agency Comment Specimen source: Serum Sebastian Charles MD LAB BLOOD ORDERABLES Performing Organization Address City/State/ZIP Code Phon e Number [facility] (ABNORMAL) [facility] Chemistry (12/01/2021) P athologist Signature PTH 190 (H) 16 - 80 [facility] pg/mL [facility] Specimen (Source) Anatomical Collection Method Collection Time Re ceived Time Location / / Volume Laterality 12/01/2021 2021 9:07 AM CDT Narrative [facility] - 2021 Unless otherwise specified, test(s) performed at: [facility], [address] [place] [address] APPLICATIONS PROGRAMMER ANALYST: Steve Younger M.D. For any questions, please call customer service at FREQUENCY:MONTHLY Resulting Agency Comment Specimen source: Plasma Sebastian Charles MD LAB BLOOD ORDERABLES Performing Organization Address City/State/ZIP Code Phon e Number [facility] documented in this encounter Visit Diagnoses Not on filedocumented in this encounter Care Teams Product Communications Manager Relationship Specialty Start Date End Date Harish Silver MD PCP - General 05/17/[address] [place] [address] documented as of this encounter
--- OUTSIDE RECORDS SUMMARY | 2022-03-31 20:39 | XMS_ITS | Encounter Summary ---
:1940 Author Organization [facility] Address [address] [place] [address] Care Team Providers Name Role Phone Harish Silver MD Primary Care Provider Encounter Details Date Type Department Care Team Description 10/06/2021 Orders Only [facility] O f Sebastian Mohan MD [phone] [place] [address] [place], [place] [phone] (Wo rk) Social History Tobacco Use Types Packs/Day Years Used Date Smoking Tobacco: Never Alcohol Use Standard Drinks/Week Comments No 0 (1 standard drink = 0.6 oz pure alcoho l) Sex Assigned at Date Recorded Not on file documented as of this encounter Plan of Treatment Not on filedocumented as of this encounter Procedures Procedure Name Priority Date/Time Associated Diagnosis Comme nts CHEMISTRY Routine 10/06/2021 Results for thi s procedure are in the resu lts section. documented in this encounter Results [facility] (10/06/2021) P athologist Signature Potassium 3.7 3.5 - 5.1 [facility] mEq/L [facility] Specimen (Source) Anatomical Collection Method Collection Time Re ceived Time Location / / Volume Laterality 10/06/2021 10/07/2021 8:46 PM IT SERVICE DELIVERY MANAGER Narrative [facility] - 10/08/2021 Unless otherwise specified, test(s) performed at: [facility], [address] [place] [address] SUPERVISOR TUBING: Steve Younger M.D. For any questions, please call customer service at FREQUENCY:OTHER Resulting Agency Comment Specimen source: Serum Sebastian Charles MD LAB BLOOD ORDERABLES Performing Organization Address City/State/ZIP Code Phon e Number [facility] documented in this encounter Visit Diagnoses Not on filedocumented in this encounter Care Teams Sliver Machine Operator Relationship Specialty Start Date End Date Harish Silver MD PCP - General 05/17/19 [address] [place] [address] documented as of this encounter
--- OUTSIDE RECORDS SUMMARY | 2022-03-31 20:39 | XMS_ITS | Encounter Summary ---
:1940 Author Organization [facility] Address [address] [place] [address] Care Team Providers Name Role Phone Harish Silver MD Primary Care Provider Encounter Details Date Type Department Care Team Description 01/12/2022 Orders Only [facility] f Sebastian Mohan MD [phone] [place] [address] [place], [place] [phone] (Wo rk) Social History Tobacco Use [...] Date/Time Associated Diagnosis Comme nts HEMATOLOGY Routine 01/12/2022 Results for thi s procedure are in the resu lts section. documented in this encounter Results (ABNORMAL) HEMATOLOGY (01/12/2022) Analysis Performed At Patho logist Time Signature Hemoglobin 10.7 (L) 14.0 - [facility] 18.0 g/dL [facility] Hemoglobin x 3 32.1 (L) 42.0 - [facility] 54.0 % [facility] Specimen (Source) Anatomical Collection Method Collection Time Re ceived Time Location / / Volume Laterality 01/12/2022 01/13/2022 3:14 PM CDT Narrative [facility] - 01/13/2022 Unless otherwise specified, test(s) performed at: [facility], [address] [place] [address] LABOR AND DELIVERY REGISTERED NURSE: Steve Younger M.D. For any questions, please call customer service at FREQUENCY:OTHER Resulting Agency Comment Specimen source: Blood Sebastian Charles MD LAB BLOOD ORDERABLES Performing Organization Address City/State/ZIP Code Phon e Number [facility] documented in this encounter Visit Diagnoses Not on filedocumented in this encounter Care Teams Swing Ride Operator Relationship Specialty Start Date End Date Harish Silver MD PCP - General 05/17/19 [address] [place] [address] documented as of this encounter
--- OUTSIDE RECORDS SUMMARY | 2022-03-31 20:39 | XMS_ITS | Encounter Summary ---
:1940 Author Organization [facility] Address [address] [place] [address] Care Team Providers Name Role Phone Harish Silver MD Primary Care Provider Encounter Details Date Type Department Care Team Description 12/01/2021 Treatment [facility] O Sebastian Jimenez MD [address] [place], [place] [phone] (Wo rk) Social History Tobacco Use Types Packs/Day Years Used Date Smoking Tobacco: Never Alcohol Use Standard Drinks/Week Comments No 0 (1 standard drink = 0.6 oz pure alcoho l) Sex Assigned at Date Recorded Not on file documented as of this encounter Miscellaneous Notes Dialysis Note - Sebastian Charles MD - 12/01/2021 5:00 PM CDT Date: Dec 01, 2021 Patient Name: David Castro : 1940 Chart #: [id number] Sex: M This patient was personally seen for a complete visit as part of routine monthly dialysis care. A review of the dialysis treatment, blood pressure, estimated dry weight, and recent lab values was made.These were discussed with the patient and staff as necessary. MARKETING SERVICES COORDINATOR: Sebastian Charles MD LOCATION: [phone] SCHEDULE: No Routine Schedule Subjective 12/01/21: Georges was seen today and says [...] bilaterally. Cardiovascular - Regular rate. Regular rhythm. Gastrointestinal - Normal bowel sounds, soft, non-tender. Edema - No leg edema. PD catheter exit site - looks excellent, no erythema, small scab present Medication List Medication Sig Start Date allopurinol 100 mg tablet Take 1 tablet by mouth once a day amlodipine 5 mg tablet Take 1 tablet by mouth once a day amoxicillin 500 mg capsule Take 4 capsule by mouth once a day as directed. 1 hour before dental procedure. calcitriol 0.25 mcg capsule Take 1 capsule by mouth three times a week. -- hydralazine 10 mg tablet Take 1 tablet by mouth three times a day isosorbide dinitrate 5 mg tablet Take 1 tablet by mouth three times a day metoprolol tartrate 25 mg tablet Take 1 tablet by mouth twice a day omeprazole 20 mg capsule,delayed release(DR/EC) Take 1 capsule by mouth once a day torsemide 20 mg tablet Take 2 tablet by mouth twice a day warfarin 2 mg tablet Take by mouth once a day as directed. by PCP. Allergy List Allergen Reaction Reaction Severity Onset Date Tegretol Unknown Medications reviewed with changes as indicated below. Torsemide reduced to 40mg daily from bid Treatment and Adequacy Assessment BUN mg/dL 77 (11/10/21) 74 (10/19/21) 45 (09/22/21) CREATININE (MG/DL) IN SER/PLAS mg/dL 4.40 (11/10/21) 4.34 (10/19/21) 3.40 (09/22/21) KT/V, PERITONEAL L/wk 0.70 (11/10/21) 1.15 (10/19/21) KT/V, RESIDUAL L/wk 1.37 (11/10/21) 1.10 (10/19/21) Kt/V is adequate. Adequacy was excellent with 8L of fluid on CAPD. Adequacy still excellent with 6L fluid on CCPD, will continue this Peritoneal Dialysis Access Assessment Placed on: 07/[address] Kaur No further leaking from PD cath site Anemia Assessment HEMOGLOBIN (G/DL) IN BLOOD g/dL 12.2 (10/19/21) 12.1 (09/22/21) 12.5 (09/13/21) WBC (BLOOD) 1000/mcL 7.38 (10/19/21) 4.99 (09/22/21) 6.99 (09/13/21) IRON SATURATION % 18 (10/19/21) 18 (09/22/21) 11 (09/13/21) FERRITIN ng/mL 31 (09/13/21) Hemoglobin is at goal. Iron Saturation is below goal. Ferritin is below goal. Will adjust SIRISHA and intravenous iron. Nutritional and Metabolic Assessment ALBUMIN (G/DL) g/dL 3.5 (10/19/21) 3.8 (09/22/21) 4.2 (09/13/21) BICARBONATE (CO2) mEq/L 28 (10/19/21) 31 (09/22/21) 24 (09/13/21) POTASSIUM (MMOL/L) IN SER/PLAS mEq/L 3.8 (10/19/21) 3.7 (10/06/21) 3.1 (09/22/21) Sodium mEq/L 141 (10/19/21) 143 (09/22/21) 139 (09/13/21) 25 OH VITAMIN D ng/mL 37.5 (09/13/21) Albumin is below goal. Encourage high biological value protein intake. Potassium is at goal. Bone and Mineral Metabolism Assessment Calcium mg/dL 8.4 (10/19/21) 8.7 (09/22/21) 9.0 (09/13/21) CALCIUM (MG/DL) CORRECTED FOR ALBUMIN IN SER/PLAS mg/dL 8.8 (10/19/21) 8.9 (09/22/21) 8.8 (09/13/21) CALCIUM PHOSPHORUS PRODUCT, COR 37 (10/19/21) 28 (09/22/21) 37 (09/13/21) PHOSPHATE (MG/DL) IN SER/PLAS mg/dL 4.2 (10/19/21) 3.1 (09/22/21) 4.2 (09/13/21) IPTH pg/mL 154 (09/22/21) 188 (09/13/21) Corrected calcium is at goal. Phosphorus is at goal. Intact PTH is at goal. Cardiovascular Assessment Blood pressure reviewed and is acceptable. Continue same cardiovascular medications. Estimated dry weight is too high, will decrease. Lower EDW to weight in clinic today Transplant Status Patient declined to be evaluated. He was evaluated on past, on hold for years, now advanced age and he has elected to not pursue any further given risks associated with transplant and his GI issues as well. Resuscitation Status Additional Comments: He is now doing excellent on PD No further leaking from PD catheter site Had ER visit for hypovolemia, felt faint. I will reduce torsemide to 40mg daily, monitor wt and BP and symptoms Monitor HR off metoprolol, cardiology follow-up recommended given hx of a-fib. May need monitor to ensure no episodes of RVR and follow-up for CHF as well. Sebastian Charles MD [ Signed And locked electronically On 12/01/2021 at 05:05:43 PM ] Transcribed: Sebastian Charles ( 12/01/2021 ) documented in this encounter Plan of Treatment Not on filedocumented as of this encounter Visit Diagnoses Not on filedocumented in this encounter Care Teams Fire Management Technician Relationship Specialty Start Date End Date Harish Silver MD PCP - General 05/17/19 [address] [place] [address] documented as of this encounter
--- OUTSIDE RECORDS SUMMARY | 2022-03-31 20:39 | XMS_ITS | Encounter Summary ---
:1940 Author Organization [facility] Address [address] [place] [address] Care Team Providers Name Role Phone Harish Silver MD Primary Care Provider Encounter Details Date Type Department Care Team Description 09/22/2021 Treatment [facility] Sebastian Jimenez MD [address] [place] [address] [place], [place] [phone] (Wo rk) Social History Tobacco Use Types Packs/Day Years Used Date Smoking Tobacco: Never Alcohol Use Standard Drinks/Week Comments No 0 (1 standard drink = 0.6 oz pure alcoho l) Sex Assigned at Date Recorded Not on file documented as of this encounter Miscellaneous Notes Dialysis Note - Sebastian Charles MD - 09/22/2021 3:27 PM CST Date: Sep 22, 2021 Patient Name: David Castro : 1940 Chart #: [id number] Sex: M This patient was personally seen for a complete visit as part of routine monthly dialysis care. A review of the dialysis treatment, blood pressure, estimated dry weight, and recent lab values was made.These were discussed with the patient and staff as necessary. TOOL MACHINE SETUP OPERATOR: Sebastian Charles MD LOCATION: [phone] SCHEDULE: No Routine Schedule Subjective 09/22/21: Georges is anxious about starting PD. [...] in about 1 month. Review of Systems Fatigue. Edema. Exam Respiratory - Clear to auscultation bilaterally. Cardiovascular - Regular rate. Regular rhythm. Gastrointestinal - Normal bowel sounds, soft, non-tender. Edema - 2+ leg edema. PD catheter exit site - looks excellent, no erythema and well healed Medication List No medication list is available. Allergy List Allergen Reaction Reaction Severity Onset Date Tegretol Unknown Medications reviewed and no changes were made. Meds to be uploaded, I reviewed them in the room with patient. Treatment and Adequacy Assessment BUN mg/dL 73 (09/13/21) CREATININE (MG/DL) IN SER/PLAS mg/dL 4.33 (09/13/21) Continue current prescription. adequacy to be completed Peritoneal Dialysis Access Assessment Placed on: 07/[address] Kaur Anemia Assessment HEMOGLOBIN (G/DL) IN BLOOD g/dL 12.5 (09/13/21) WBC (BLOOD) 1000/mcL 6.99 (09/13/21) IRON SATURATION % 11 (09/13/21) FERRITIN ng/mL 31 (09/13/21) Hemoglobin is at goal. Iron Saturation is below goal. Ferritin is below goal. Hgb at goal given no SIRISHA use. Nutritional and Metabolic Assessment ALBUMIN (G/DL) g/dL 4.2 (09/13/21) BICARBONATE (CO2) mEq/L 24 (09/13/21) POTASSIUM (MMOL/L) IN SER/PLAS mEq/L 3.5 (09/13/21) Sodium mEq/L 139 (09/13/21) 25 OH VITAMIN D ng/mL 37.5 (09/13/21) Albumin is at goal. Encourage high biological value protein intake. Potassium is at goal. Bone and Mineral Metabolism Assessment Calcium mg/dL 9.0 (09/13/21) CALCIUM (MG/DL) CORRECTED FOR ALBUMIN IN SER/PLAS mg/dL 8.8 (09/13/21) CALCIUM PHOSPHORUS PRODUCT, COR 37 (09/13/21) PHOSPHATE (MG/DL) IN SER/PLAS mg/dL 4.2 (09/13/21) IPTH pg/mL 188 (09/13/21) Corrected calcium is at goal. Phosphorus is at goal. Intact PTH is at goal. Cardiovascular Assessment Blood pressure reviewed and is acceptable. Continue same cardiovascular medications. Estimated dry weight is appropriate. Will challenge EDW with fluid removal with PD/diuretics and find accurate dry weight Transplant Status Patient declined to be evaluated. He was evaluated on past, on hold for years, now advanced age and he has elected to not pursue any further given risks associated with transplant and his GI issues as well. 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 He has a lot of residual function currently We will do PET and adequacy, scheduled Labs today, will review With ongoing edema, I will double torsemide to 40mg bid. Sebastian Charles MD [ Signed And locked electronically On 09/22/2021 at 03:34:34 PM ] Transcribed: Sebastian Charles ( 09/22/2021 ) documented in this encounter Plan of Treatment Not on filedocumented as of this encounter Visit Diagnoses Not on filedocumented in this encounter Care Teams Fire Control System Installer Relationship Specialty Start Date End Date Harish Silver MD PCP - General 05/17/19 [address] [place] [place] [address] documented as of this encounter
--- OUTSIDE RECORDS SUMMARY | 2022-03-31 20:39 | XMS_ITS | Encounter Summary ---
:1940 Author Organization [facility] Address [address] [place] [address] Care Team Providers Name Role Phone Harish Silver MD Primary Care Provider Encounter Details Date Type Department Care Team Description 03/02/2022 Orders Only [facility] Sebastian Mohan MD [phone] [place] [address] [place], [place] [phone] (Wo rk) Social History Tobacco Use Types Packs/Day Years Used Date Smoking Tobacco: Never Alcohol Use Standard Drinks/Week Comments No 0 (1 standard drink = 0.6 oz pure alcoho l) Sex Assigned at Date Recorded Not on file documented as of this encounter Plan of Treatment Not on filedocumented as of this encounter Procedures Procedure Name Priority Date/Time Associated Diagnosis Comme nts URINE CLEARANCE Routine 03/02/2022 Results for this procedure are i n the results section . PDF CHEMISTRY Routine 03/02/2022 Results for th is procedure are i n the results section . PD ADEQUACY Routine 03/02/2022 Results for thi s procedure are i n the results section . PD ADEQUACY Routine 03/02/2022 Results for thi s procedure are i n the results section . PATIENT INFORMATION Routine 03/02/2022 Results for this procedure are i n the results section . PATIENT INFORMATION Routine 03/02/2022 Results for this procedure are i n the results section . PATIENT INFORMATION Routine 03/02/2022 Results for this procedure are i n the results section . HEMATOLOGY Routine 03/02/2022 Results for thi s procedure are i n the results section . CHEMISTRY Routine 03/02/2022 Results for thi s procedure are i n the results section . CHEMISTRY Routine 03/02/2022 Results for thi s procedure are i n the results section . documented in this encounter Results PD ADEQUACY (03/02/2022) P athologist Signature Kt/V, Residual 1.04 [facility]PS [facility]RA [facility] Creat Clear, 129 L/wk [facility]RA Urine Nor Wkly [facility] Specimen (Source) Anatomical Collection Method Collection Time Re ceived Time Location / / Volume Laterality 03/02/2022 03/03/2022 2:52 AM CDT Narrative APS SPECTRA [facility] - 03/03/2022 Unless otherwise specified, test(s) performed at: [facility], [address] [place] [address], [place] [address] CAMP NURSE: Dariel Doyle M.D., Ph.D For any questions, please call customer service at FREQUENCY:MONTHLY Resulting Agency Comment Specimen source: Urine Sebastian Charles MD LAB BODY FLUIDS AND STOOLS O RDERABLES Performing Organization Address City/State/ZIP Code Phon e Number APS SPECTRA [facility] (ABNORMAL) Spectrae Chemistry (03/02/2022) Patholo gist Method Time Signature BUN 61 (H) 6 - 19 APS [facility] mg/dL [facility] Creatinine 4.38 (H) 0.60 - APS SPECTRA 1.30 mg/dL [facility] BUN/Creatinine 13.9 10.0 - [facility]PS [facility] Ratio 20.0 [facility] Sodium 138 136 - 145 A[facility]RA mEq/L [facility] Potassium 4.0 3.5 - 5.1 APS [facility]PECTRA mEq/L [facility] Chloride 99 96 - 108 A[facility]RA mEq/L [facility] Bicarbonate 32 (H) 20 - 31 APS SPECTRA (CO2) mEq/L [facility] Comment: Please note change in reference range. Calcium 8.9 8.7 - 10.4 mg/dL APS SPECTRA K [facility] Comment: Please note change in reference range. Corrected Calcium 9.4 8.7 - 10.4 mg/dL APS S PECTRA [facility] Comment: Corrected Calcium is not equivalent to m easured Ionized Calcium. Phosphorus 4.5 2.6 - 4.5 mg/dL APS SPECTRA K [facility] Calcium Phosphorus Product 40 0 - 54 APS SPECTRA [facility] Calcium Phosporus Product, Cor 42 0 - 54 APS SPECTRA [facility] Alkaline Phosphatase 337 (H) 40 - 129 U/L APS SP ECTRA [facility] Albumin 3.4 (L) 3.5 - 5.2 g/dL APS SPECT[facility] [place] Magnesium 1.9 1.6 - 2.6 mg/dL APS SPECTRA [facility] Ferritin 61 22 - 322 ng/mL APS [facility] [place] Iron 78 45 - 160 mcg/dL [facility] UIBC 206 155 - 355 mcg/dL APS SPECTRA K [facility] TIBC 284 185 - 515 mcg/dL APS SPECTRA [facility] Iron Saturation (TSat) 27 20 - 55 % APS SPE CTRA [facility] Specimen (Source) Anatomical Collection Method Collection Time Re ceived Time Location / / Volume Laterality 03/02/2022 03/03/2022 6:13 AM CDT Resulting Agency Comment Specimen source: Serum Sebastian Charles MD LAB BLOOD ORDERABLES Performing Organization Address [facility] Code Phon e Number APS SPECTRA [facility] PATIENT INFORMATION (03/02/2022) P athologist Signature Patient BSA 1.90 sq. M. [facility]PS SPECTRA [facility] Comment: Normalized values are calculated using t he patient's actual BSA and normalized to the average BSA of 1.73m2. Specimen (Source) Anatomical Collection Method Collection Time Re ceived Time Location / / Volume Laterality 03/02/2022 03/03/2022 6:13 AM CDT Narrative APS SPECTRA [facility] - 03/03/2022 Unless otherwise specified, test(s) performed at: [facility], [address] [place] [address], [place] [address] CAMP NURSE: Dariel Doyle M.D., Ph.D For any questions, please call customer service at FREQUENCY:MONTHLY Resulting Agency Comment Specimen source: PD Fluid Sebastian Charles MD LAB BLOOD ORDERABLES Performing Organization Address City/[facility]/ZIP Code Phon e Number APS SPECTRA [facility] (ABNORMAL) URINE CLEARANCE (03/02/2022) Analysis Performed At Patho logist Time Signature Urea Nitrogen, 509 mg/dL APS [facility]PECTRA Urine Timed [facility] Urea Nitrogen, 3.8 (L) 12.0 - APS SPECTRA Urine 24 Hr 20.0 g/24 [facility] hr Creatinine, 118.6 mg/dL APS SPECTRA Urine Timed [facility] Creatinine, 24H 0.9 0.7 - 1.8 APS SPECTRA Ur g/24 hr [facility] Urea Clear, 4.0 (L) 64.0 - APS SPECTRA Urine Norm 99.0 [facility] mL/min Urea Clearance, 4.3 (L) 64.0 - APS SPECTRA Urine 99.0 [facility] mL/min Urea Clear, 44 L/wk APS SPECTRA Urine Norm Wkly [facility] Creatinine 14.1 mL/min APS SPECTRA Clear, Urine [facility] Creat Clear, 12.8 (L) 94.0 - APS SPECTRA Urine Norm 122.0 [facility] mL/min Creat Clear, 142.1 L/wk APS SPECTRA Urine Wkly [facility] Specimen (Source) Anatomical Collection Method Collection Time Re ceived Time Location / / Volume Laterality 03/02/2022 03/03/2022 2:52 AM CDT Resulting Agency Comment Specimen source: Urine Sebastian Charles MD LAB URINE ORDERABLES Performing Organization Address City/State/ZIP Code Phon e Number APS SPECTRA [facility] PDF CHEMISTRY (03/02/2022) P athologist Signature Urea Nitrogen, 2,983.1 mg/24 hr APS SPECTRA PDF 24 Hr [facility] Urea Nitrogen, 47 mg/dL APS SPECTRA PDF Timed [facility] Comment: A reference range for this assay has not been established for body fluids. If blood results are available f or this analyte, results may be interpreted in comparison to those resul ts. Creatinine, PDF Timed Uncor 2.2 mg/dL AP S SPECTRA [facility] Comment: A reference range for this assay has not been established for body fluids. If blood results are available f or this analyte, results may be interpreted in comparison to those resul ts. Creatinine, PDF Timed Cor 2.1 mg/dL APS SPECTRA [facility] Comment: Creatinine values have been corrected fo r glucose interference. [facility] glucose correction factor f or creatinine is 0.0002. Creatinine, PDF 24 Hr 133.3 mg/24 hr APS SPEC TRA [facility] Glucose, PDF Timed 717 mg/dL APS SPECTRA [facility] Comment: A reference range for this assay has not been established for body fluids. If blood results are available f or this analyte, results may be interpreted in comparison to those resul ts. Urea Clearance, PD Fluid 3.4 mL/min APS S PECTRA [facility] Urea Clearance, PDF Norm 3.1 mL/min APS S PECTRA [facility] Urea Clear, Tot Norm Wkly 78 L/wk APS SPECTRA [facility] Urea Clear, PDF Norm Wkly 34 L/wk APS SPECTRA [facility] Creatinine Clear, PDF 2.1 mL/min APS SPEC TRA [facility] Creatinine Clear, PDF Norm 1.9 mL/min APS SPECTRA [facility] Creat Clear, PDF Norm Wkly 21 L/wk APS SPECTRA [facility] Creat Clear, Tot Wkly 163 L/wk APS SPEC TRA [facility] Specimen (Source) Anatomical Collection Method Collection Time Re ceived Time Location / / Volume Laterality 03/02/2022 03/03/2022 2:58 AM CDT Resulting Agency Comment Specimen source: PD Fluid Sebastian Charles MD LAB BODY FLUIDS AND STOOLS O [place] Performing Organization Address City/State/ZIP Code Phon e Number APS SPECTRA [facility] PD ADEQUACY (03/02/2022) P athologist Signature PNA, Normalized 0.92 g/kg/day APS SPECTRA [facility] PNA 67 g/day APS S[facility] Kt/V, Total 1.84 APS SPECTRA [facility] Comment: KDOQI Guidelines recommend weekly Kt/V o f >=1.7 for adults. Kt/V, Peritoneal 0.80 APS SPECTRA K [facility] Creat Clear, Tot Norm Wkly 148 L/wk APS SPECTRA [facility] Creat Clear, PDF Norm Wkly 19 L/wk APS SPECTRA [facility] Specimen (Source) Anatomical Collection Method Collection Time Re ceived Time Location / / Volume Laterality 03/02/2022 03/03/2022 2:58 AM CDT Narrative APS SPECTRA [facility] - 03/03/2022 Unless otherwise specified, test(s) performed at: [facility], [address] [place] [address] darlin [facility] [address] CAMP NURSE: Dariel Doyle M.D., Ph.D For any questions, please call customer service at FREQUENCY:MONTHLY Resulting Agency Comment Specimen source: PD Fluid Sebastian Charles MD LAB BODY FLUIDS AND STOOLS O [place] Performing Organization Address City/State/ZIP Code Phon e Number APS SPECTRA [facility] PATIENT INFORMATION (03/02/2022) P athologist Signature Urea Volume 42.3 L APS SPECTRA Distribution [facility] (Zoraida) Specimen (Source) Anatomical Collection Method Collection Time Re ceived Time Location / / Volume Laterality 03/02/2022 03/03/2022 2:58 AM CDT Narrative APS SPECTRA [facility] - 03/03/2022 Unless otherwise specified, test(s) performed at: [facility], [address] [place] [address], [place] [address] CAMP NURSE: Dariel Doyle M.D., Ph.D For any questions, please call customer service at FREQUENCY:MONTHLY Resulting Agency Comment Specimen source: PD Fluid Sebastian Charles MD LAB BLOOD ORDERABLES Performing Organization Address City/State/ZIP Code Phon e Number APS SPECTRA [facility] (ABNORMAL) HEMATOLOGY (03/02/2022) Patholo gist Method Time Signature WBC 7.30 4.80 - APS SPECTRA 10.80 [facility] 1000/mcL RBC 4.08 (L) 4.70 - APS SPECTRA 6.10 [facility] mill/mcL Hemoglobin 13.0 (L) 14.0 - APS SPECTRA 18.0 g/dL [facility] Hemoglobin x 3 39.0 (L) 42.0 - APS SPECTRA 54.0 % [facility] Hematocrit 40.2 (L) 42.0 - APS SPECTRA 52.0 % [facility] MCV 99 80 - 100 APS SPECTRA fl [facility] MCH 31.9 (H) 27.0 - APS SPECTRA 31.0 pg [facility] MCHC 32.3 30.0 - APS SPECTRA 36.0 g/dL [facility] RDW 18.6 (H) 11.5 - APS SPECTRA 14.5 % [facility] Neutrophils 72.2 40.0 - APS SPECTRA 75.0 % [facility] Lymphocytes 8.3 (L) 19.0 - APS SPECTRA Relative 48.0 % [facility] Monocytes 5.0 3.0 - 10.0 APS SPECTRA % [facility] Eosinophils 13.2 (H) 0.0 - 7.0 APS SPECTRA Relative % [facility] Basophils 0.5 0.0 - 1.5 APS SPECTRA Relative % [facility] JUAN ANTONIO 0.8 0.0 - 4.0 APS SPECTRA % [facility] Specimen (Source) Anatomical Collection Method Collection Time Re ceived Time Location / / Volume Laterality 03/02/2022 03/03/2022 2:46 AM CDT Narrative APS SPECTRA [facility] - 03/03/2022 Unless otherwise specified, test(s) performed at: [facility], [address] [place] [address], [place] [address] CAMP NURSE: Dariel Doyle M.D., Ph.D For any questions, please call customer service at FREQUENCY:MONTHLY Resulting Agency Comment Specimen source: Blood Sebastian Charles MD LAB BLOOD ORDERABLES Performing Organization Address City/[facility] Phon e Number APS SPECTRA [facility] (ABNORMAL) Spectrae Chemistry (03/02/2022) P athologist Signature PTH 263 (H) 16 - 80 APS SPECTRA pg/mL [facility] Specimen (Source) Anatomical Collection Method Collection Time Re ceived Time Location / / Volume Laterality 03/02/2022 03/03/2022 2:44 AM CDT Narrative APS SPECTRA [facility] - 03/03/2022 Unless otherwise specified, test(s) performed at: [facility], [address] [place] [address], [place] [address] CAMP NURSE: Dariel Doyle M.D., Ph.D For any questions, please call customer service at FREQUENCY:MONTHLY Resulting Agency Comment Specimen source: Plasma Sebastian Charles MD LAB BLOOD ORDERABLES Performing Organization Address City/[facility] Phon e Number APS SPECTRA [facility] PATIENT INFORMATION (03/02/2022) P athologist Signature Patient Weight 77.0 APS S[facility]RA [facility] Patient Height 172.0 APS SPECTRA [facility] Amputee Status NO [facility]PS SPECTRA [facility] Amputee Parts NONE [facility]PS SPECTRA [facility] Drain volume, 6,347 APS SPECTRA PDF [facility] Collection 24.0 APS SPECTRA Time, PDF [facility] Urine Volume 750 APS SPECTRA [facility] Collection 24.0 APS SPECTRA Interval, Ur [facility] Specimen (Source) Anatomical Location Collection Method / Collectio n Time Received Time / Laterality Volume 03/02/2022 03/02/2022 Narrative APS SPECTRA [facility] - 03/03/2022 Unless otherwise specified, test(s) performed at: [facility], [address] [place], [place] [address] [address] CAMP NURSE: Dariel Doyle M.D., Ph.D For any questions, please call customer service at FREQUENCY:MONTHLY Resulting Agency Comment Specimen source: PD Fluid Sebastian Charles MD LAB BLOOD ORDERABLES Performing Organization Address City/State/ZIP Code Phon e Number APS SPECTRA [facility] documented in this encounter Visit Diagnoses Not on filedocumented in this encounter Care Teams Quality Control Inspector Relationship Specialty Start Date End Date Harish Silver MD PCP - General 05/17/[address] [facility] [place] [address] documented as of this encounter
--- OUTSIDE RECORDS SUMMARY | 2022-03-31 20:39 | XMS_ITS | Continuity of Care Document ---
:1940 Author Organization [facility] Address [address] [address] [place] [address] Phone Care Team Providers Name Role Phone Sanjay MOISE, Surya Unavailable Unavailable Allergies, Adverse Reactions, Alerts Substance Reaction Status Criticality propafenone fluid around heart Active No Informatio n furosemide Reaction Unknown Active No Information carbamazepine Adverse reaction Active No Information Medications Medication Instructions Dosage Effective Dates Status Comment s (start - stop) torsemide 20 mg take 1 tablet by oral 20 MG - Active tablet route every day warfarin 2 mg tablet take 1 tablet by oral - A ctive route 5 times every week, 0.5 tablets 2 days per week allopurinol 100 mg take 1 tablet by oral 100 MG - Act lynsey tablet route every day isosorbide dinitrate take 1 tablet by oral 5 MG - A ctive 5 mg tablet route 3 times every day as needed metoprolol tartrate take 1 tablet by oral 25 MG - Ac tive 25 mg tablet route 2 times every day amlodipine 5 mg take 1 tablet by oral 5 MG - Active tablet route every day amoxicillin 500 mg take 4 capsule by 2000 MG - Active capsule oral route every day if needed for procedures calcitriol 0.25 mcg take 1 capsule by 0.25 MCG - Active capsule oral route 3 times every week hydralazine 10 mg take 1 tablet by oral 10 MG - Acti ve tablet route 3 times every day with food omeprazole 20 mg take 1 tablet by oral 1 tablet - Activ e delayed route every day release,disintegratin g tablet Procedures Procedure Date Ugi Endo; W/bx 1/mx Level Iv-surg Path Gross/micro Ugi Endo; W/balloon Dilat Esop Ugi Endo; W/bx 1/mx Level Iv-surg Path Gross/micro Esophageal Motility Study Init Hosp-da E&m Mod Severity Ugi Endo; W/contrl Bleed Any M Offic/outpt E&m New Mod Sever Advance Directives Directive Yes / No Effective Date File Name No Information Encounters Encounter Practice Location Reason(s) Diagnoses Date Provider Provide rs Description For Visit Copied on Encounter FACUNDO Cerrato No Sanjay MOISE [facility] Information Surya. [facility], [address] [place] [address], [address] [place], [facility] [address], , [place], [place] [id number], , [place], [id number], tel:[phone] tel:[phone] FACUNDO LOREDO AchalasiaHema Asad MOISE Referr ing [facility]. Provid er: [facility], Center satya of cardia [address] [place] [address], [address] [place], [address] [place] [address], [address] [facility], [place], [place] [address], [id number], , [place], [place], [id number], [place], [address]. tel:+[phone] [place]. tel:[phone] tel:[phone] FACUNDO [place] Achalasia of [facility] Digestive FACUNDO cardiaGastro- MD Malin. 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 tel:+[phone] malformations [place]. tel:[phone] of upper tel:[phone] alimentary 167345 tractAchalasi a of cardia [facility] [place] No Quoc- [facility] Information MD Malin. [facility], Endoscopy [address] [facility] [address], [address] [place], [facility] [address], s, [place], [place] [id number], , [place], [place] [id number], tel:[phone] tel:[phone] [facility] GI Achalasia Gerri MOISE Referring Digestive Clinic Symptoms - Marcelo. Provider: [facility], or [address] [facility] Joe MOISE, [address], ([address] [place], [address] [place] [address] complaint) [address], [place], [place] [address], [id number], , [place], [place], [place] [id number], [place], [address]. tel: [place]. tel:[phone] tel:[phone] Init Hosp-da [facility] [place] No Rima MOISE Referring E&m Mod Digestive [facility] Information Viki. [address] P rovider: [facility] [place], Hosp 1 [place] V[address]anda [address] r [facility] MD Lyric SWEET, [address] [address], [address], [facility] s, [place], , [place], [address], [id number], [id number], [place], [place]. [place], tel:+ tel:[phone]. [phone] [phone] [facility] [place] Achalasia Rima MOISE Digestive [facility] Viki. [address] Health [place], Hosp 1 [facility], [address], [address], [place], [place], , [place], [id number], [id number], [place]. tel: tel:[phone] Offic/outpt [facility] [place] GI Achalasia Apr- Lisa PAC Refe nicolaing E&m [facility] Symptoms [address] Provid er: [facility] [place], or [address] [place] [address], Andreea MOISE [address], ([address], [address], [address] [place] complaint) [place] Malachi son [place], [place], , [place], [address], [id number], [id number], [place], [address]. tel: tel: tel: [phone] Family History Family Member Type Diagnosis Age At Onset Mother Problem (finding) Parkinson's disease Sister Problem (finding) Alive and well Brother Problem (finding) Alive and well Father Problem (finding) alcoholism Son Problem (finding) Alive and well Immunizations Vaccine Date Status Comments SARS-COV-2 (COVID-19) vaccine, administered N ote: [facility] bi-directional mRNA, spike protein, LNP, interf martín ; Source: Other preservative free, 30 mcg/0.3mL Registry dose SARS-COV-2 (COVID-19) vaccine, administered N ote: [facility] bi-directional mRNA, spike protein, LNP, interf martín ; Source: Other preservative free, 30 mcg/0.3mL Registry dose influenza, seasonal vaccine, administered Not e: [facility] bi-directional quadrivalent, adjuvanted, .5mL i nterface ; Source: Other dose, preservative free Registry Seasonal trivalent influenza administered Not e: [facility] bi-directional vaccine, adjuvanted, interface ; Source: Other preservative free Registry zoster vaccine recombinant administered Note: [facility] bi-directional interface ; Sour ce: Other Registry zoster vaccine recombinant administered Note: [facility] bi-directional interface ; Sour ce: Other Registry Afluria Qd administered Note: [facility] bi-directional interface ; Sour ce: Other Registry Seasonal trivalent influenza administered Not e: [facility] bi-directional vaccine, adjuvanted, interface ; Source: Other preservative free Registry influenza, high dose seasonal, administered N ote: [facility] bi-directional preservative-free interface ; So urce: Other Registry influenza, high dose seasonal, administered N ote: [facility] bi-directional preservative-free interface ; So urce: Other Registry Prevnar 13 administered Note: [facility] bi-di rectional interface ; Sour ce: Other Registry tetanus toxoid, reduced administered Note: RI IC bi-directional diphtheria toxoid, and acellular interface ; Source: Other pertussis vaccine, adsorbed Marnie stry influenza, high dose seasonal, administered N ote: [facility] bi-directional preservative-free interface ; So urce: Other Registry Influenza, seasonal, injectable, administered Note: [facility] bi-directional preservative free interface ; So urce: Other Registry Influenza, seasonal, injectable, administered Note: [facility] bi-directional preservative free interface ; So urce: Other Registry zoster vaccine, live administered Note: [facility] bi-directional interface ; Sour ce: Other Registry Pneumovax 23 administered Note: [facility] bi-di rectional interface ; Sour ce: Other Registry Engerix-B administered Note: [facility] bi-di rectional interface ; Sour ce: Other Registry Engerix-B administered Note: [facility] bi-di rectional interface ; Sour ce: Other Registry Energix Pediatric administered Note: [facility] bi- directional interface ; Sour ce: Other Registry tetanus and diphtheria toxoids, administered Note: [facility] bi-directional adsorbed, preservative free, for interface ; Source: Other adult use (5 Lf of tetanus Zachary try toxoid and 2 Lf of diphtheria toxoid) Influenza, seasonal, injectable administered Note: [facility] bi-directional interface ; Sour ce: Other Registry Influenza, seasonal, injectable administered Note: [facility] bi-directional interface ; Sour ce: Other Registry Influenza, seasonal, injectable administered Note: [facility] bi-directional interface ; Sour ce: Other Registry Payers Payer name Insurance type Covered democrat ID Authorization(s ) [employer] Advantage [id number] [facility] [id number] Social History Type Description Quantity Date Captured Comments Sex Male Smoking Status No Information Chief Complaint And Reason For Visit No Information Reason For Referral Reason For Referral No Information Plan Of Treatment Date Type Action Status Referral Ordered: ordered follow-up visit with Esophagus soleadd solo Referral Ordered: ordered referred to Clayton Diaz MD Surgery achalasia, ?esophagectomy ?J tube Appointment date/timeframe: 11/10/2020 History Of Present Illness Encounter Date Complaint History Of Present I llness GI Symptoms or Concerns GI Symptoms or Concerns Mr. Castro is a 78-year-old male who presents to [facility] Clinic today for the first time to discuss dysphagia and a long history of achalasia. We were a sked to see him in consultation by Dr. Doran. Patient reports that he has had dysp hagia for over 50 years and was diagnosed wi th achalasia in the 1960s. [facility] He has been managing his dysphagia symptoms rather well over the last few decades; however, ov er the last year it appears his symptoms have worsened. He has undergone workup at the [facility] and reports undergoing a n EGD in February and then having a repeat EGD with pneumatic balloon dilation about 3 wee ks ago at their facility. Since the balloon di lation, he was admitted at [facility] and due to complaints of dysphagia at that ti me underwent an esophagram. He was t old he had an extremely dilated esophagus an d that contrast took over an hour to pass from his esophagus into his stomach. It was then recommended Functional Status Date Functional Assessment No Information Instructions Date Instruction Additional Informati on No Information Assessments Type Assessment Date No Information Patient Care Teams Name Effective Dates (start - stop) Status M jesika No Information
--- OUTSIDE RECORDS SUMMARY | 2022-03-31 20:39 | XMS_ITS | Encounter Summary ---
:1940 Author Organization [facility] Address [address] [place] [address] Care Team Providers Name Role Phone Harish Silver MD Primary Care Provider Encounter Details Date Type Department Care Team Description 05/25/2021 Documentation Only [facility] [place] MD [place] [address] [place] [address] [address] [place] [address] Social History Tobacco Use Types Packs/Day Years Used Date Smoking Tobacco: Never Alcohol Use Standard Drinks/Week Comments No 0 (1 standard drink = 0.6 oz pure alcoho l) Sex Assigned at Date Recorded Not on file documented as of this encounter Plan of Treatment Not on filedocumented as of this encounter Visit Diagnoses Not on filedocumented in this encounter Care Teams Driver Supervisor Relationship Specialty Start Date End Date Harish Silver MD PCP - General 05/17/19 [address] [place] [address] documented as of this encounter
--- OUTSIDE RECORDS SUMMARY | 2022-03-31 20:39 | XMS_ITS | Encounter Summary ---
:1940 Author Organization [facility] Address [address] [place] [address] Care Team Providers Name Role Phone Harish Silver MD Primary Care Provider Encounter Details Date Type Department Care Team Description 12/22/2021 Orders Only [facility] Sebastian Mohan MD [phone] [place] [address] [place], [place] [phone] (Wo rk) Social History Tobacco Use [...] Date/Time Associated Diagnosis Comme nts HEMATOLOGY Routine 12/22/2021 Results for thi s procedure are in the resu lts section. CHEMISTRY Routine 12/22/2021 Results for thi s procedure are in the resu lts section. documented in this encounter Results (ABNORMAL) Spectrae Chemistry (12/22/2021) [facility] gist Method Time Signature BUN 34 (H) 6 - 19 [facility] mg/dL [facility] Creatinine 3.38 (H) 0.60 - [facility] 1.30 mg/dL [facility] BUN/Creatinine 10.1 10.0 - [facility] Ratio 20.0 [facility] Sodium 140 136 - 145 [facility] mEq/L [facility] Potassium 4.0 3.5 - 5.1 [facility] mEq/L [facility] Chloride 101 96 - 108 [facility] mEq/L [facility] Bicarbonate 28 22 - 29 [facility] (CO2) mEq/L [facility] Calcium 7.9 (L) 8.4 - 10.2 [facility] mg/dL [facility] Corrected 8.9 8.4 - 10.2 [facility] Calcium mg/dL [facility] Comment: Corrected Calcium is not equivalent to m easured Ionized Calcium. Phosphorus 3.3 2.6 - 4.5 mg/dL [facility] Calcium Phosphorus Product 26 0 - 54 [facility] Calcium Phosporus Product, Cor 29 0 - 54 [facility] Albumin 2.7 (L) 3.5 - 5.2 g/dL [facility] [place] Iron 17 (L) 45 - 160 mcg/dL [facility] [place] [facility] UIBC 234 155 - 355 mcg/dL [facility] TIBC 251 185 - 515 mcg/dL [facility] Iron Saturation (TSat) 7 (L) 20 - 55 % APS SPE CTRA [facility] Specimen (Source) Anatomical Collection Method Collection Time Re ceived Time Location / / Volume Laterality 12/22/2021 12/23/2021 8:39 PM CDT Narrative [facility] - 12/24/2021 Unless otherwise specified, test(s) performed at: [facility], [address] [place] [address] TELE MARKETING EXECUTIVE: Steve Younger M.D. For any questions, please call customer service at FREQUENCY:MONTHLY Resulting Agency Comment Specimen source: Serum Sebastian Charles MD LAB BLOOD ORDERABLES Performing Organization Address City/State/ZIP Code Phon e Number [facility] (ABNORMAL) HEMATOLOGY (12/22/2021) P athologist Signature WBC 6.40 4.80 - [facility] 10.80 [facility] 1000/mcL RBC 2.55 (L) 4.70 - 6.10 [facility] mill/mcL [facility] Hemoglobin 8.3 (L) 14.0 - 18.0 [facility] g/dL [facility] Comment: Verified by repeat analysis. Hemoglobin x 3 24.9 (L) 42.0 - 54.0 % [facility] Hematocrit 24.6 (L) 42.0 - 52.0 % [facility] [place] MCV 96 80 - 100 fl [facility] MCH 32.4 (H) 27.0 - 31.0 pg [facility] [place] MCHC 33.6 30.0 - 36.0 g/dL [facility] RDW 13.9 11.5 - 14.5 % [facility] N Neutrophils 76.8 (H) 40.0 - 75.0 % [facility] [place] [facility] Lymphocytes Relative 9.2 (L) 19.0 - 48.0 % APS S PECTRA [facility] Monocytes 6.5 3.0 - 10.0 % [facility] Eosinophils Relative 5.7 0.0 - 7.0 % APS SPE CTRA [facility] Basophils Relative 0.3 0.0 - 1.5 % APS SPECT RA [facility] JUAN ANTONIO 1.5 0.0 - 4.0 % [facility] Specimen (Source) Anatomical Collection Method Collection Time Re ceived Time Location / / Volume Laterality 12/22/2021 12/23/2021 3:47 PM CDT Narrative [facility] - 12/23/2021 Unless otherwise specified, test(s) performed at: [facility], [address] [place] [address] TELE MARKETING EXECUTIVE: Steve Younger M.D. For any questions, please call customer service at FREQUENCY:MONTHLY Resulting Agency Comment Specimen source: Blood Sebastian Charles MD LAB BLOOD ORDERABLES Performing Organization Address City/State/ZIP Code Phon e Number [facility] documented in this encounter Visit Diagnoses Not on filedocumented in this encounter Care Teams Parts Administrator Relationship Specialty Start Date End Date Harish Silver MD PCP - General 05/17/[address] [place] [address] documented as of this encounter
--- OUTSIDE RECORDS SUMMARY | 2022-03-31 20:39 | XMS_ITS | Encounter Summary ---
:1940 Author Organization [facility] Address [address] [place] [address] Care Team Providers Name Role Phone Harish Silver MD Primary Care Provider Encounter Details Date Type Department Care Team Description 09/01/2021 Telephone [facility] Yessica Patten, [place] [phone] [place] [address] [address] [address] [place] [address] (Wo rk) Social History Tobacco Use Types Packs/Day Years Used Date Smoking Tobacco: Never Alcohol Use Standard Drinks/Week Comments No 0 (1 standard drink = 0.6 oz pure alcoho l) Sex Assigned at Date Recorded Not on file documented as of this encounter Miscellaneous Notes Telephone Encounter - Yessica Taveras RN - 09/02/2021 10:55 AM CST Acceptance letter received. Dialysis unit will notify pt of date/time to start PD training. Telephone Encounter - Yessica Taveras RN - 09/01/2021 10:53 AM CST VO from Dr. Charles- Start [facility] admission process. He will be starting PD at [facility] last week of August. Already has PD catheter. Completed [facility] Admission in the portal. documented in this encounter Plan of Treatment Not on filedocumented as of this encounter Visit Diagnoses Not on filedocumented in this encounter Care Teams Plant Control Aide Relationship Specialty Start Date End Date Harish Silver MD PCP - General 05/17/19 [address] [place] [address] documented as of this encounter
--- OUTSIDE RECORDS SUMMARY | 2022-03-31 20:39 | XMS_ITS | Encounter Summary ---
:1940 Author Organization [facility] Address [address] [place] [address] Care Team Providers Name Role Phone Harish Silver MD Primary Care Provider Encounter Details Date Type Department Care Team Description 11/10/2021 Orders Only [facility] Sebastian Mohan MD [phone] [place] [address] [place], [place] [phone] (Wo rk) Social History Tobacco Use [...] Associated Diagnosis Comme nts URINE CLEARANCE Routine 11/10/2021 Results for this procedure are i n the results section . PDF CHEMISTRY Routine 11/10/2021 Results for th is procedure are i n the results section . PD ADEQUACY Routine 11/10/2021 Results for thi s procedure are i n the results section . PD ADEQUACY Routine 11/10/2021 Results for thi s procedure are i n the results section . PATIENT INFORMATION Routine 11/10/2021 Results for this procedure are i n the results section . PATIENT INFORMATION Routine 11/10/2021 Results for this procedure are i n the results section . PATIENT INFORMATION Routine 11/10/2021 Results for this procedure are i n the results section . CHEMISTRY Routine 11/10/2021 Results for thi s procedure are i n the results section . documented in this encounter Results (ABNORMAL) URINE CLEARANCE (11/10/2021) Analysis Performed At Patho logist Time Signature Urea Nitrogen, 451 mg/dL [facility] Urine Timed [facility] Urea Nitrogen, 6.5 (L) 12.0 - [facility] Urine 24 Hr 20.0 g/24 [facility] hr Urea Clear, 5.3 (L) 64.0 - [facility] Urine Norm 99.0 [facility] mL/min Urea Clearance, 5.9 (L) 64.0 - [facility] Urine 99.0 [facility] mL/min Urea Clear, 59 L/wk [facility] Urine Norm Wkly [facility] Creatinine, 73.1 mg/dL [facility] Urine Timed [facility] Creatinine, 24H 1.1 0.7 - 1.8 [facility] Ur g/24 hr [facility] Creatinine 16.7 mL/min [facility] Clear, Urine [facility] Creat Clear, 15.1 (L) 94.0 - [facility] Urine Norm 122.0 [facility] mL/min Creat Clear, 168.3 L/wk [facility] Urine Wkly [facility] Specimen (Source) Anatomical Collection Method Collection Time Re ceived Time Location / / Volume Laterality 11/10/2021 11/11/2021 11:1 4 AM CDT Resulting Agency Comment Specimen source: Urine Sebastian Charles MD LAB URINE ORDERABLES Performing Organization Address City/State/ZIP Code Phon e Number [facility] PD ADEQUACY (11/10/2021) P athologist Signature Kt/V, Residual 1.37 [facility] Creat Clear, 152 L/wk [facility] Urine Nor Wkly [facility] Specimen (Source) Anatomical Collection Method Collection Time Re ceived Time Location / / Volume Laterality 11/10/2021 11/11/2021 11:1 4 AM CDT Narrative [facility] - 11/11/2021 Unless otherwise specified, test(s) performed at: [facility], [address] [place] [id number] TUB TENDER: Steve Younger M.D. For any questions, please call customer service at FREQUENCY:MONTHLY Resulting Agency Comment Specimen source: Urine Sebastian Charles MD LAB BODY FLUIDS AND STOOLS O RDERABLES Performing Organization Address City/State/ZIP Code Phon e Number [facility] PDF CHEMISTRY (11/10/2021) P athologist Signature Urea Nitrogen, 3,307.7 mg/24 hr [facility] PDF 24 Hr [facility] Urea Nitrogen, 55 mg/dL [facility] PDF Timed [facility] Comment: A reference range for this assay has not been established for body fluids. If blood results are available f or this analyte, results may be interpreted in comparison to those resul ts. Urea Clearance, PD Fluid 3.0 mL/min [facility]PS S PECTRA [facility] Urea Clearance, PDF Norm 2.7 mL/min [facility]PS S PECTRA [facility] Urea Clear, Tot Norm Wkly 89 L/wk [facility] Urea Clear, PDF Norm Wkly 30 L/wk [facility] Creatinine, PDF Timed Uncor 2.1 mg/dL AP S SPECTRA [facility] Comment: A reference range for this assay has not been established for body fluids. If blood results are available f or this analyte, results may be interpreted in comparison to those resul ts. Creatinine, PDF Timed Cor 1.9 mg/dL [facility] Comment: Creatinine values have been corrected fo r glucose interference. [facility] glucose correction factor f or creatinine is 0.0002. Creatinine, PDF 24 Hr 114.3 mg/24 hr APS SPEC TRA [facility] Creatinine Clear, PDF 1.8 mL/min APS SPEC TRA [facility] Creatinine Clear, PDF Norm 1.6 mL/min [facility] Creat Clear, PDF Norm Wkly 18 L/wk [facility] Creat Clear, Tot Wkly 186 L/wk APS SPEC TRA [facility] Glucose, PDF Timed 773 mg/dL [facility] Comment: A reference range for this assay has not been established for body fluids. If blood results are available f or this analyte, results may be interpreted in comparison to those resul ts. Specimen (Source) Anatomical Collection Method Collection Time Re ceived Time Location / / Volume Laterality 11/10/2021 11/11/2021 11:3 1 AM CDT Resulting Agency Comment Specimen source: PD Fluid Sebastian Charles MD LAB BODY FLUIDS AND STOOLS O RDERABLES Performing Organization Address City/State/ZIP Code Phon e Number [facility] PD ADEQUACY (11/10/2021) P athologist Signature Kt/V, Total 2.07 [facility] Comment: KDOQI Guidelines recommend weekly Kt/V o f >=1.7 for adults. Kt/V, Peritoneal 0.70 [facility] Creat Clear, Tot Norm Wkly 168 L/wk [facility] Creat Clear, PDF Norm Wkly 16 L/wk [facility] PNA, Normalized 1.20 g/kg/day [facility] [place] [facility] PNA 89 g/day [facility] Specimen (Source) Anatomical Collection Method Collection Time Re ceived Time Location / / Volume Laterality 11/10/2021 11/11/2021 11:3 1 AM CDT Narrative [facility] - 11/11/2021 Unless otherwise specified, test(s) performed at: [facility], [address] [place], [place] [id number] TUB TENDER: Steve Younger M.D. For any questions, please call customer service at FREQUENCY:MONTHLY Resulting Agency Comment Specimen source: PD Fluid Sebastian Charles MD LAB BODY FLUIDS AND STOOLS O RDERABLES Performing Organization Address City/State/ZIP Code Phon e Number [facility] PATIENT INFORMATION (11/10/2021) P athologist Signature Urea Volume 43.1 L [facility] Distribution [facility] (Zoraida) Specimen (Source) Anatomical Collection Method Collection Time Re ceived Time Location / / Volume Laterality 11/10/2021 11/11/2021 11:3 1 AM CDT Narrative [facility] - 11/11/2021 Unless otherwise specified, test(s) performed at: [facility], [address] [place] [id number] TUB TENDER: Steve Younger M.D. For any questions, please call customer service at FREQUENCY:MONTHLY Resulting Agency Comment Specimen source: PD Fluid Sebastian Charles MD LAB BLOOD ORDERABLES Performing Organization Address City/[facility]/ZIP Code Phon e Number [facility] (ABNORMAL) Spectrae Chemistry (11/10/2021) Analysis Performed At Patho logist Time Signature BUN 77 (H) 6 - 19 [facility] mg/dL [facility] Creatinine 4.40 (H) 0.60 - [facility] 1.30 mg/dL [facility] BUN/Creatinine 17.5 10.0 - [facility] Ratio 20.0 [facility] Specimen (Source) Anatomical Collection Method Collection Time Re ceived Time Location / / Volume Laterality 11/10/2021 11/11/2021 8:46 AM CDT Narrative [facility] - 11/11/2021 Unless otherwise specified, test(s) performed at: [facility], [address] [place] [address] TUB TENDER: Steve Younger M.D. For any questions, please call customer service at FREQUENCY:MONTHLY Resulting Agency Comment Specimen source: Serum Sebastian Charles MD LAB BLOOD ORDERABLES Performing Organization Address City/[facility] Phon e Number [facility] PATIENT INFORMATION (11/10/2021) athologist Signature Patient BSA 1.92 sq. M. [facility] Comment: Normalized values are calculated using t he patient's actual BSA and normalized to the average BSA of 1.73m2. Specimen (Source) Anatomical Collection Method Collection Time Re ceived Time Location / / Volume Laterality 11/10/2021 11/11/2021 8:46 AM CDT Narrative [facility] - 11/11/2021 Unless otherwise specified, test(s) performed at: [facility], [address] [place] [id number] TUB TENDER: Steve Younger M.D. For any questions, please call customer service at FREQUENCY:MONTHLY Resulting Agency Comment Specimen source: PD Fluid Sebastian Charles MD LAB BLOOD ORDERABLES Performing Organization Address City/[facility] Phon e Number [facility] PATIENT INFORMATION (11/10/2021) P athologist Signature Patient Weight 79.5 [facility] Patient Height 172.0 [facility] Amputee Status NO [facility] Amputee Parts NONE [facility] Drain volume, 6,014 [facility] PDF [facility] Collection 24.0 [facility] Time, PDF [facility] Urine Volume 1,450 [facility] Collection 24.0 [facility] Interval, Ur [facility] Specimen (Source) Anatomical Location Collection Method / Collectio n Time Received Time / Laterality Volume 11/10/2021 11/10/2021 Narrative [facility] - 11/11/2021 Unless otherwise specified, test(s) performed at: [facility], [address] [place] [id number] TUB TENDER: Steve Younger M.D. For any questions, please call customer service at FREQUENCY:MONTHLY Resulting Agency Comment Specimen source: PD Fluid Sebastian Charles MD LAB BLOOD ORDERABLES Performing Organization Address City/State/ZIP Code Phon e Number [facility] documented in this encounter Visit Diagnoses Not on filedocumented in this encounter Care Teams First Breaker Feeder Relationship Specialty Start Date End Date Harish Silver MD PCP - General 05/17/[address] [place] [address] documented as of this encounter
[2022-03-31 20:40] LABS: Potassium* 3.2 mmol/L (3.6-5.1); Sodium* 138 mmol/L (135-149)
[2022-03-31 20:42] LABS: Creatinine* 3.6 mg/dL (0.5-1.5); Est. Creatinine Clearance* 15.83; Estimated Glomerular Filt Rate 16 ml/min
[2022-03-31 20:43] LABS: Blood Urea Nitrogen* 109 mg/dL (7-30); Calcium* 8.5 mg/dL (8.4-10.6); Carbon Dioxide* 32 mmol/L (20-32); Glucose* 188 mg/dL (60-115)
== END 2022-03-31 21:36 | disposition home or self-care (01) ==
PROVIDERS: Emergency Provider Emergency Medicine Emergency Medical Services; PCP Family Medicine
DX: E86.0 Dehydration (principal)
CPT/HCPCS: 36415; 80048; 85025; 96360; 99284; J7030

== ENCOUNTER 2022-04-13 20:04 | Emergency (ER) | payer MEDICARE, OTHER, SELFPAY ==
[2022-04-13] VITALS (8 sets, daily range): BP systolic 76–122; BP diastolic 47–73; PULSE 85–102; RESP 16; TEMP 36.7; O2SAT 95–98; BMI 25.1
--- NOTE | 2022-04-13 21:30 | ED.NURSE ---
gastrocult for black vomit tested, weak positive, very slight blue x3. - MD Marinelli aware
--- NOTE | 2022-04-13 21:31 | CRLHL7_ITS ---
For Patients: As a result of the Century Cures Act, medical imaging exams and procedure reports are released immediately into your electronic medical record. You may view this report before your referring provider. If you have questions, please contact your health care provider. INDICATION: Abdominal pain. TECHNIQUE: CT abdomen and pelvis without contrast. COMPARISON: 04/05/2021. FINDINGS: Lower chest: Small right pleural effusion. Adjacent passive atelectasis. Small to moderate pericardial effusion. Mitral annular and coronary artery calcifications. Patulous fluid-filled esophagus. Liver: Normal in size and attenuation. No suspicious masses. Gallbladder and bile ducts: No stones or inflammation. No biliary ductal dilatation. Spleen: Normal in size. No masses. Adrenal glands: Normal in size. No nodules. Pancreas: Unremarkable. No mass or inflammation. Kidneys: Atrophic bilateral kidneys. Bilateral calcifications likely representing a combination of nonobstructive nephrolithiasis and nephrocalcinosis. No hydronephrosis. GI tract: Unremarkable. Normal in caliber. No sign of mass or inflammation. Appendix is not visualized, however there is no evidence of right lower quadrant inflammatory stranding. Lymph nodes: No lymphadenopathy. Vasculature: Severe scattered atherosclerotic calcifications. Abdominal wall/Omentum/Peritoneum: Trace fluid in the pelvis and few scattered foci of gas, likely related to peritoneal dialysis catheter. Pelvis: Unremarkable. No pelvic masses. Bones: Multilevel degenerative changes of the spine. IMPRESSION: 1. No acute abdominal or pelvic abnormality. 2. Small right pleural effusion. 3. Small to moderate pericardial effusion. 4. Patulous fluid-filled esophagus. 5. Atrophic kidneys. Please note that all CT scans at this facility use dose modulation, iterative reconstruction, and/or weight-based dosing when appropriate to reduce radiation dose to as low as reasonably achievable. Dictated by Vern Hodgson MD @ 04/13/2022 11:48:16 PM (Electronically Signed)
--- NOTE | 2022-04-13 21:36 | ED.SYNCOPE ---
HPI - Syncope General Chief Complaint: Syncope/Fainted Stated Complaint: VOMITING,WEAKNESS Time Seen by Provider: 04/13/22 21:17 History of Present Illness HPI narrative: 81-year-old man presenting to the emergency department with concern of weakness and vomiting. He reports a history of peritoneal dialysis for some degree of renal failure and achalasia which he believes is why he has these vomiting episodes. Started vomiting around 3:00 a.m. this morning and has had a number of episodes of this. Has not had a fever. Is not short of breath is not having chest pain. Was not complaining of abdominal pain until my palpation during exam. During exam after I palpate his abdomen he subsequent has copious black emesis which apparently he has done before and they note that after transport to [facility] early in the year was not noted to have a GI bleed. He did however collapse in the shower this morning around episodes of vomiting. Spouse witness this says he did not hit his head. He does not really recall this event but spouse says he did not pass out actually. Due to this achalasia he only takes in liquids orally. Does not have a feeding tube otherwise. thinks that maybe what triggered this episode was some unliquified turkey that he put in his soup yesterday evening. Was seen in this department 2 weeks ago for a vomiting episode as well. PAST HISTORY:? Pertinent past medical history:? 1. Achalasia since 1962.? Believed to have acquired this somehow while serving in the [employer].? Has had multiple prior esophagogastroduodenoscopies with dilatations.? In November of this year had a laparoscopic Heller myotomy, robotic assisted.? Sees [facility] in this regard.? Multidisciplinary conference held on April 29, determined that there was no more they can do to help him in this regard.? They recommended consideration for feeding tube. 2. Heart failure with right-sided pleural effusion and pericardial effusion. 3. Paroxysmal atrial fibrillation on warfarin for stroke prophylaxis with INR goal of 2-3. 4. Osteopenia by bone density scan February 2017. 5. Obstructive sleep apnea for which he is on CPAP. 6. Gout. 7. Chronic kidney disease stage 5, followed up by fruit shipper. 8. Subclinical hypothyroidism. 9. Hypertension. 10. Left ventricular hypertrophy. 11. Generalized anxiety disorder. 12. History of intracranial abscess in the past. 13. Anemia of chronic kidney disease. 14. Secondary hyperparathyroidism due to renal cause. 15. Prediabetes. 16. History of gastric polyps. 17. Testicular atrophy. 18. Subacute bacterial endocarditis prophylaxis. 19. Chronic leukopenia. 20. History of adenomatous colon polyp.? 21. Bilateral neurosensory hearing deficit. 22. History of aspiration pneumonitis, April 2021. 23. Dysphagia. Past surgical history:? 1. Status post excision of infratentorial brain abscess in 2001. 2. Status post appendectomy. 3. Status post bilateral 1st metatarsal phalangeal joint surgery, 1997. 4. Status post colonoscopies, last one in September of 2016, to be repeated in 5 years. 5. Status post multiple prior esophagogastroduodenoscopies and dilatations. 6. Status post laparoscopic Heller myotomy, robotic assisted, 1April 2020. 7. Status post right knee surgery, April of 2011. 8. Status post L3-L4 and L4-L5 hemilaminectomy and microdiskectomy, December of 2013. 9. Status post subtalar arthroereisis bilaterally. ? Related Data Home Medications Medication Instructions Recorded Confirmed allopurinol 100 mg tablet mg 03/31/22 calcitriol 0.25 mcg capsule mcg 03/31/22 docusate sodium 100 mg tablet mg PO 03/31/22 metoprolol tartrate 25 mg tablet mg 03/31/22 omeprazole 20 mg capsule,delayed mg 03/31/22 release torsemide 20 mg tablet mg 03/31/22 vitamin B complex-vitamin C 100 tab 03/31/22 mg-folic acid 1 mg tablet (Dialyvite) warfarin 2 mg tablet mg 03/31/22 Allergies Allergy/AdvReac Type Severity Reaction Status Date / Time No Known Drug Allergies Allergy Verified 04/13/22 20:57 Review of Systems Status of ROS: Reports: 6 or more systems reviewed and unremarkable except as noted in History and below [facility] Medical History Achalasia Afib Anxiety Gout Heart failure History of intracranial abscess HTN (hypertension) Hypothyroidism ELENI (obstructive sleep apnea) Osteopenia Social History Smoking Status: Former smoker What tobacco products do you use: cigarettes Smoking quit date/years: >15 years ago Do you use any of these nicotine containing products: None Second hand tobacco smoke exposure: No How often do you have a drink containing alcohol: never How often do you have six or more drinks on one occasion: Never AUDIT-C Alcohol total score: 0 Non-prescribed substance use: denies use Exam Narrative: Exam Narrative: is direct conversation. Looks uncomfortable. Holding emesis bag. Cranial nerves 2-12 intact Breathing easily. Crepitus and some diminished breath sounds in the bases. Equal chest expansion. Skin is warm and dry. Extremities without edema. Well perfused peripherally. Oropharynx is a little sticky. I do not smell ketones. Cardiovascular is with elevated rate. Regular rhythm Abdomen with diminished bowel sounds. Peritoneal dialysis catheter in place. No inflammation appreciated. Distended, guarding. Generally sore palpation seems to elicit vomiting reaction --he says the exam triggered him. Copious black vomitus is produced at this point. Pouring out. No flank pain. Const: Vital Signs, click to edit/add: Vital Signs - 24 hr 04/13/22 20:53 04/13/22 21:40 04/13/22 22:10 Temperature 98.0 F Pulse Rate [Right Pulse Oximeter] 102 H 98 85 Respiratory Rate 16 16 16 Blood Pressure [Le ft Upper Arm] 76/47 L 112/58 L 112/52 L Pulse Oximetry 96 96 96 Oxygen Delivery Me thod Room Air Room Air Room Air 04/13/22 22:20 04/13/22 22:50 04/13/22 23:10 Temperature Pulse Rate [Right Pulse Oximeter] 95 98 92 Respiratory Rate 16 16 16 Blood Pressure [Le ft Upper Arm] 122/61 108/59 L 107/58 L Pulse Oximetry 96 98 95 Oxygen Delivery Me thod Room Air Room Air Room Air 04/13/22 23:30 04/13/22 23:50 04/14/22 00:10 Temperature Pulse Rate [Right Pulse Oximeter] 100 99 94 Respiratory Rate 16 16 16 Blood Pressure [Le ft Upper Arm] 112/62 106/73 107/62 Pulse Oximetry 97 95 96 Oxygen Delivery Me thod Room Air Room Air Room Air 04/14/22 00:30 04/14/22 00:50 04/14/22 01:20 Temperature Pulse Rate [Right Pulse Oximeter] 99 96 85 Respiratory Rate 16 16 16 Blood Pressure [Le ft Upper Arm] 116/61 114/71 109/64 Pulse Oximetry 96 96 96 Oxygen Delivery Me thod Room Air Room Air Room Air 04/14/22 02:00 04/14/22 03:00 04/14/22 04:00 Temperature Pulse Rate [Right Pulse Oximeter] 86 87 85 Respiratory Rate 16 16 16 Blood Pressure [Le ft Upper Arm] 109/60 112/62 110/60 Pulse Oximetry 98 98 97 Oxygen Delivery Me thod Room Air Room Air Room Air 04/14/22 05:00 04/14/22 06:00 Temperature Pulse Rate [Right Pulse Oximeter] 81 91 Respiratory Rate 16 16 Blood Pressure [Le ft Upper Arm] 117/64 117/63 Pulse Oximetry 97 97 Oxygen Delivery Me thod Room Air Room Air Documenting provider has reviewed patient's vital signs: yes Course Reevaluation(s) Reevaluation #1: Is no longer vomiting. Though still nauseated Blood pressure in 1 teens systolic Reevaluation #2: Is actually able to drink 8 oz of water venous. Still noting himself to be far too weak to go home. A little later actually able to transfer self around the bed independently. Reevaluation #3: Re-examination of the abdomen notes soft still mildly tender. Definitely less full than prior and softer. Resting. sleeping Additional Reevaluation(s): Waking for overnight pending potential placement, reports still nauseated. He has not vomited overnight and still reports feeling too weak He has managed to keep down some apple juice and water this morning. And then as I am conversation with him again and his who has now returned to the emergency department, he begins vomiting up copious black liquid again. Vital Signs Vital signs: Initial Vital Signs Temperature 98.0 F 04/13/22 20:53 Temperature Source Temporal Artery Scan 04/13/22 20:53 Pulse Rate 102 H 04/13/22 20:53 Respiratory Rate 16 04/13/22 20:53 Blood Pressure 76/47 L 04/13/22 20:53 Blood Pressure Mean 56 04/13/22 20:53 Blood Pressure Position Sitting 04/13/22 20:53 Pulse Oximetry 96 04/13/22 20:53 Oxygen Delivery Method 04/13/22 20:53 Vital Signs Temperature 98.0 F 04/13/22 20:53 Pulse Rate 102 H 04/13/22 20:53 Respiratory Rate 16 04/13/22 20:53 Blood Pressure 76/47 L 04/13/22 20:53 Pulse Oximetry 96 04/13/22 20:53 Oxygen Delivery Method 04/13/22 20:53 Temperature 98.0 F 04/13/22 20:53 Pulse Rate 91 04/14/22 06:00 Respiratory Rate 16 04/14/22 06:00 Blood Pressure 117/63 04/14/22 06:00 Pulse Oximetry 97 04/14/22 06:00 Oxygen Delivery Method 04/14/22 06:00 MDM - Syncope MDM Narrative Medical decision making narrative: Guaiac testing of vomitus was weakly positive on at least 3 collections. Troponin is elevated in the setting of renal failure and elevated proBNP. We will trend. Flat troponins Managing small amount of fluid intake. Uncertain what more we would be able to do at this facility other than continued fluid resuscitation. We have contacted [facility] and they are on divert until mid morning. (Attempts at hospitalizing other patients earlier this evening have resulted in reports of no bed availability in other locations) Would otherwise be admitted for weakness but I am hoping this improves. He is not vomiting at this point. And will not be placing NG or essentially nasal-esophageal tube placement. I believe that the lightly positive for weakly positive gastroccult represents irritation/inflammation more than any active bleed. Has cardiac follow-up appointment at [facility] on Monday See course--vomiting again. Still feels too weak to go home. Stable, well. I have placed calls to [facility] to try to obtain a bed to [facility] understanding that the next step in cares might be of placement of a feeding tube. No beds at this point here the so I have called to our surgeon to discuss this case. Surgeon recommending placement at tertiary facility. Calls out to [facility] diverting. Initiated on D5 normal saline maintenance fluids. Thankfully [facility] is accepting. Anticipating transport Medical Records Attestation: I reviewed the patient's medical records. Lab Data Attestation: I reviewed the patient's lab results. Labs: Lab Results 04/13/22 04/13/22 04/13/22 Range/Units 21:33 21:33 21:33 INR 2.01 H (0.91-1.10) APTT 38 H (23-33) Seconds VBG pH (7.32-7.43) VBG pCO2 (40-50) mmHG VBG pO2 (25-47) mmHG VBG HCO3 (21-28) mmol/L Sodium 137 (135-149) mmol/L Potassium 3.6 (3.6-5.1) mmol/L Chloride 93 L (96-114) mmol/L Carbon Dioxide 35 H (20-32) mmol/L BUN 91 H (7-30) mg/dL Creatinine 3.9 H (0.5-1.5) mg/dL Estimated Creat Clear 14.62 Estimated GFR 15 ml/min Glucose 183 H (60-115) mg/dL Venous Lactic Acid (Serial Order) Calcium 8.6 (8.4-10.6) mg/dL Magnesium 2.4 (1.5-2.6) mg/dL Total Bilirubin 0.6 (0.1-1.5) mg/dL AST 38 H (12-35) U/L ALT 20 (4-50) U/L Alkaline Phosphatase 302 H (40-150) U/L Troponin I 0.07 H* (0.01-0.04) ng/mL NT-Pro-B Natriuret Pep 4460 H (0-450) PG/mL Total Protein 7.1 (6.0-8.3) g/dL Albumin 3.4 (3.3-5.0) g/dL Lipase 99 (23-300) U/L SARS-CoV-2 (PCR) (Negative) Influenza Type A (PCR) (Negative) Influenza Type B (PCR) (Negative) POC Troponin I (0.01-0.04) ng/ml 04/13/22 04/13/22 04/13/22 Range/Units 21:33 21:33 21:50 INR (0.91-1.10) APTT (23-33) Seconds VBG pH 7.427 (7.32-7.43) VBG pCO2 56 H (40-50) mmHG VBG pO2 37.8 (25-47) mmHG VBG HCO3 37 H (21-28) mmol/L Sodium (135-149) mmol/L Potassium (3.6-5.1) mmol/L Chloride (96-114) mmol/L Carbon Dioxide (20-32) mmol/L BUN (7-30) mg/dL Creatinine (0.5-1.5) mg/dL Estimated Creat Clear Estimated GFR ml/min Glucose (60-115) mg/dL Venous Lactic Acid (Serial Order) Calcium (8.4-10.6) mg/dL Magnesium (1.5-2.6) mg/dL Total Bilirubin (0.1-1.5) mg/dL AST (12-35) U/L ALT (4-50) U/L Alkaline Phosphatase (40-150) U/L Troponin I (0.01-0.04) ng/mL NT-Pro-B Natriuret Pep (0-450) PG/mL Total Protein (6.0-8.3) g/dL Albumin (3.3-5.0) g/dL Lipase (23-300) U/L SARS-CoV-2 (PCR) Negative SARS-CoV-2 (Negative) Influenza Type A (PCR) Negative PCR FLU A (Negative) Influenza Type B (PCR) Negative PCR FLU B (Negative) POC Troponin I 0.10 H (0.01-0.04) ng/ml 04/13/22 Range/Units 23:40 INR (0.91-1.10) APTT (23-33) Seconds VBG pH (7.32-7.43) VBG pCO2 (40-50) mmHG VBG pO2 (25-47) mmHG VBG HCO3 (21-28) mmol/L Sodium (135-149) mmol/L Potassium (3.6-5.1) mmol/L Chloride (96-114) mmol/L Carbon Dioxide (20-32) mmol/L BUN (7-30) mg/dL Creatinine (0.5-1.5) mg/dL Estimated Creat Clear Estimated GFR ml/min Glucose (60-115) mg/dL Venous Lactic Acid (Serial Order) Calcium (8.4-10.6) mg/dL Magnesium (1.5-2.6) mg/dL Total Bilirubin (0.1-1.5) mg/dL AST (12-35) U/L ALT (4-50) U/L Alkaline Phosphatase (40-150) U/L Troponin I 0.08 H* (0.01-0.04) ng/mL NT-Pro-B Natriuret Pep (0-450) PG/mL Total Protein (6.0-8.3) g/dL Albumin (3.3-5.0) g/dL Lipase (23-300) U/L SARS-CoV-2 (PCR) (Negative) Influenza Type A (PCR) (Negative) Influenza Type B (PCR) (Negative) POC Troponin I (0.01-0.04) ng/ml CT abdomen and pelvis without contrast. COMPARISON: 04/05/2021. FINDINGS: Lower chest: Small right pleural effusion. Adjacent passive atelectasis. Small to moderate pericardial effusion. Mitral annular and coronary artery calcifications. Patulous fluid-filled esophagus. Liver: Normal in size and attenuation. No suspicious masses. Gallbladder and bile ducts: No stones or inflammation. No biliary ductal dilatation. Spleen: Normal in size. No masses. Adrenal glands: Normal in size. No nodules. Pancreas: Unremarkable. No mass or inflammation. Kidneys: Atrophic bilateral kidneys. Bilateral calcifications likely representing a combination of nonobstructive nephrolithiasis and nephrocalcinosis. No hydronephrosis. GI tract: Unremarkable. Normal in caliber. No sign of mass or inflammation. Appendix is not visualized, however there is no evidence of right lower quadrant inflammatory stranding. Lymph nodes: No lymphadenopathy. Vasculature: Severe scattered atherosclerotic calcifications. Abdominal wall/Omentum/Peritoneum: Trace fluid in the pelvis and few scattered foci of gas, likely related to peritoneal dialysis catheter. Pelvis: Unremarkable. No pelvic masses. Bones: Multilevel degenerative changes of the spine. IMPRESSION: 1. No acute abdominal or pelvic abnormality. 2. Small right pleural effusion. 3. Small to moderate pericardial effusion. 4. Patulous fluid-filled esophagus. 5. Atrophic kidneys. ECG Data Attestation: I personally reviewed and interpreted this ECG as follows: (Sinus at a rate of 97. PAC) Discharge Plan Discharge Clinical Impression: Weakness, Achalasia of esophagus, Vomiting Prescriptions: No Action torsemide 20 mg tablet Label Comments: Take 1 tablet by mouth once a day allopurinol 100 mg tablet warfarin 2 mg tablet omeprazole 20 mg capsule,delayed release(DR/EC) calcitriol 0.25 mcg capsule Label Comments: TAKE 1 CAPSULE BY MOUTH THREE DAYS (TIMES) A WEEK docusate sodium 100 mg tablet PO Label Comments: Take 1 tablet by mouth twice a day as needed - for constipation metoprolol tartrate 25 mg tablet Dialyvite 100-1 mg tablet Label Comments: TAKE 1 TABLET BY MOUTH DAILY WITH DINNER Follow Up/Referrals: Kush Doran MD [Primary Care Provider] -
--- OUTSIDE RECORDS SUMMARY | 2022-04-13 21:43 | XMS_ITS | Continuity of Care Document ---
:1940 Author Organization [facility] Care Team Providers Name Role Phone [facility] Unavailable Unavailable Problems Combined list of problems from Department of Defense and Veterans Affairs facilities. It does not include entries that were removed or entered in error. 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 Location Location Encounter Encounter Reason Attending ADM DC Stat us Disposition Source Details Type Number For Provider Date Date Visit Outpatient [id number] 10/07 AMANDA BAEP Encounter [id number] /2020 [facility] ADM [id number] Diagnos ACE COATES 10/14 [place] N[place] SARSCOV2 [id number] is: BERLY A /2020 [facility] 30MCG/0.3M ICD-10- HCS L 2ND CM Z23 Encount er for immuniz ation<b r/>with Provide r Comment s: Encount er for Immuniz ation Outpatient [id number] 05/14 [place] Encounter [id number] /2020 [facility] Outpatient [id number] CHRISTLE,T 05/31 [place] Encounter [id number] ERRY /2020 [facility] Outpatient [id number] CHRISTLE,T 12/03 [place] Encounter [id number] ERRY /2021 [facility] Outpatient [id number] CHRISTLE,T 12/10 [place] Encounter [id number] ERRY /2021 [facility] Outpatient [id number] SIEWERT,KR 02/10 [place] Encounter [id number] ISTEN L /2021 [facility] Outpatient [id number] 02/28 [place] Encounter [id number] /2021 [facility] Social History Combined list of available smoking, tobacco, and other social history from Department of Defense andVeterans Affairs facilities. Social History Type Response Date Comment Source This section is an empty social history section. DoD Plan of Care List of future care activities from Department of Veterans Affairs facilities. Additional future care activities may be listed in the Assessment and Plan section. Date/Time Care Activity Care Activity Detail Facility 05/30/2022 AMBULATORY - NONE AMBULATORY - NONE [facility]
--- OUTSIDE RECORDS SUMMARY | 2022-04-13 21:43 | XMS_ITS | Encounter Summary ---
:1940 Author Organization [facility] Address [address] [place] [id number] Support Name Relationship Address Phone SHAYY CARMONA Unavailable [address] [place] [address] SHAYY CRAMONA Unavailable [address] [place] [address] Insurance Providers: All historical and current Section Date Range: From patient's date of to the date document was created.This section includes the names of all active insurance providers for the patient. Insurance Type of Plan Start of End of Group Member Insurance Policy P atient's Provider Coverage Name Policy Policy Number ID Provider's Knight's Relationship Coverage Coverage Telephone Name to Policy Number Knight MEDICARE MEDICARE PART Nov 19, PART A [id number] ELKESGABRIELE,T P ATIENT (WNR) (M) A [id number] [phone] [place] MED[place] MEDICARE PART Nov 19, PART B [id number] ELKESGABRIELE,T P ATIENT (WNR) (M) B [id number] [phone] [place] Selected Encounter This section includes the information on record at [place] for the Encounter. Date/Time Encounter Type Encounter Reason Provider Source Description May 31, 2021 07:45 Outpatient ADMIN PAT ACTIVPAUL THURMAN PM Encounter (MASNONCT) IHE Encounter Template Text not used by [place] Encounter Notes: All associated encounter notes This section contains the clinical notes associated to the Encounter. Date/Time Encounter Note(s) Provider Source May 29, 2021 09:00 AM NONVA NOTE: TAMERA KINGSTON [facility] LOCAL TITLE: [facility] SELF PRESENTIN G CARE COORD PLAN STANDARD TITLE: NONVA NOTE DATE OF NOTE: MAY 29, 2021@09:00 ENTRY DATE: MAY 31, 2021@19:46:32 AUTHOR: TAMERA KINGSTON EXP COSIGNER: URGENCY: STATUS: COMPLETED [facility] SELF PRESENTING CARE CO ORD PLAN NOTE Has ADDENDA Emergency Notification Intake Date Presenting to the Facility: May Method of Contact: Notified from [employer] worklist Notification ID: [id number] [facility] Referral #: [facility] Name: Hospital: [facility] Address: [address] City: [place] State: [place] Zip Code: Community Facility Point of Contact: Name: OSCAR Chief complaint: Dyspnea, Asp [place] Primary Diagnosis: Disposition Admitted Route of Admission: Date of Admission: May Admitting Diagnosis: Dyspnea, Asp Pneuma[place] Community Care Provider: Confirm Level of Care: /tahira KINGST[place] OCCUPATIONAL ANALYST ON DUTY Signed: 05/31/2021 19:50 Receipt Acknowledged By: 06/02/2021 16:01 /tahira GORE/CCUM 06/02/2021 ADDENDUM STATUS: COMPLETED Fax sent for records. No PACT listed in [facility]. Will send email for packet request to [place] to : /tahira CASON RN RCM/CCUM Signed: 06/02/2021 16:03 12/06/2021 ADDENDUM STATUS: COMPLETED Faxed for records. /tahira CASON RN Utilization Management Signed: 12/06/2021 12:56 12/09/2021 ADDENDUM STATUS: COMPLETED [facility] 11/27/20 to 11/29/20 dx aspiration pna Information obtained from facility via encrypted email and sent to [facility] to be scanned into [facility] electronic medical record in [facility] under Documents. /tahira CASON RN Utilization Management Signed: 12/09/2021 11:01
--- OUTSIDE RECORDS SUMMARY | 2022-04-13 21:43 | XMS_ITS | Encounter Summary ---
:1940 Author Organization [facility] Address [address] [place] [address] Support Name Relationship Address Phone SHAYY CARMONA Unavailable [address] [facility] [place] [address] SHAYY CARMONA Unavailable [address] [facility] [place] [place] [address] Insurance Providers: All historical and current Section Date Range: From patient's date of to the date document was created.This section includes the names of all active insurance providers for the patient. Insurance Type of Plan Start of End of Group Member Insurance Policy P shell's Provider Coverage Name Policy Policy Number ID Provider's Knight's Relationship Coverage Coverage Telephone Name to Policy Number Knight MEDICARE MEDICARE PART Nov 19, PART A [id number] Sandhya CARMONA (WNR) (M) A 2006 97A [phone] [place] MED[place] MEDICARE PART Nov 19, PART B [id number] Sandhya CARMONA (WNR) (M) B 2006 97A [phone] [place] Selected Encounter This section includes the information on record at [place] for the Encounter. Date/Time Encounter Type Encounter Description Reason Provider Source May 14, 2021 09:18 Outpatient Encounter COMMUNITY CARE AM CONSULT IHE Encounter Template Text not used by [place] Plan of Treatment: Future Appointments (+ 6 months) and Future Tests (+/- 45 days) The Plan of Treatment section includes future care activities for the patient from all [facility] treatment[facility]ilities. This section includes future appointments and future orders which are active, pending orscheduled.Future Appointments This section includes appointments that were scheduled to occur 6 months from the date of the Encounter, up to a maximum of 20 appointments. The data comes from all [place] treatment facilities. Appointment Date/Time Appointment Type Appointment Facili ty Name May 31, 2021 07:45 PM AMBULATORY - NONE [facility] Encounter Notes: All associated encounter notes This section contains the clinical notes associated to the Encounter. Date/Time Encounter Note(s) Provider Source May 14, 2021 09:18 AM NONVA NOTE: [facility] LOCAL TITLE: COMMUNITY CARE COORDINATION PLAN STANDARD TITLE: NONVA NOTE DATE OF NOTE: MAY 14, 2021@09:18 ENTRY DATE: MAY 14, 2021@09:18:37 AUTHOR: NAILA ELMORE EXP COSIGNER: URGENCY: STATUS: COMPLETED [facility] at [phone] from [facility] Auth Dept. contacted the Community Care Call Line requesting a Community Care consult. Vendor was informed that there is no ex isting authorization in place for this care. Vendor was instructed to have the [place] contact their primary care provider to determine eligibility. /paola/ NAILA ELMORE Advanced MSA Signed: 05/14/2021 09:22
--- OUTSIDE RECORDS SUMMARY | 2022-04-13 21:43 | XMS_ITS ---
[...] a day as 2021 directed VITAL SIGNS Weight Vital Sign Value Date / Time Estimated Dry Weight 77.5 kg March 30, 2022 11: 59 PM Other Other Value Date / Time Height 172 cm September 14, 2021 12: 00 AM HEALTH CONCERNS Tuberculosis Testing TST Date Administered TST Date Read TST Result 09/14/2021 09/16/2021 Negative (<5) mm LAB RESULTS Hematology Result Type Result Value Relevant Reference Interpretation Date Range Eosinophil 10.8 % 0.0-7.0% High March 30, 2022 Basophils 0.5 % 0.0-1.5% - March 30, 2022 Lymphocytes 8.8 % 19.0-48.0% Low March 30, 2022 Monocytes 6.9 % 3.0-10.0% - March 30, 2022 RDW 16.1 % No Reference range High March provided Neutrophils 71.1 % 40.0-75.0% - March 30, 2022 MCH 33.1 pg 27 - 31 pg/cell High March 30 022 MCHC 33.4 g/dL 30 - 36 g/dL - March 30, 2022 Transferrin Sat. 20 % 20-55% - March 30, 2022 (Calc) TIBC 296 mcg/dL 185-515 mcg/dL - March 30 UIBC (Calc) 238 mcg/dL 155-355 mcg/dL - March 30 Iron 58 mcg/dL Females: 30-160 - March 30 022 mcg/dL Males: 45-160 mcg/dL JUAN ANTONIO 1.8 % 0.0-4.0% - March [...] Result Value Relevant Reference Interpretation Date Range BUN 76 mg/dL 6-19 mg/dl High March 30, 2022 Bicarbonate 34 mEq/L 22-29 mEq/L High March 30, 2022 Chloride 100 mEq/L 96-108 mEq/L - March 30, 2022 Potassium 3.5 mEq/L 3.5-5.1 mEq/L - March 30 2 Sodium 138 mEq/L 136-145 mEq/L - March 30 2 BUN/Creat Ratio 21.1 10-20 High March 30 Creatinine, Serum 3.60 mg/dL 0.6-1.3 mg/dL High March Bone/Mineral Result Type Result Value Relevant Reference Interpretation Date Range Corrected Ca x P 33 < 55 - March 30, 2022 Product Ca x P Product 31 < 55 - March 30 22 Phosphorus 3.6 mg/dL 2.6-4.5 mg/dL - March 30 2 Calcium, Total 8.5 mg/dL 8.4-10.2 mg/dL Low March 30, 2022 Liver/Nutrition Result Type Result Value Relevant Reference Interpretation Date Range Albumin (BCG) 3.3 g/dL 3.5-5.2 g/dL Low March 30 2 Infectious Diseases Result Type Result Value Relevant [...] 30, 2022 Frequency 7X Week Treatment Days [facility] [place] Estimated Dry Weight 77.5 kg Calcium Content [...] status Full Code Sebastian Charles Sep 13 DIALYSIS TREATMENTS (CAPD/CCPD treatments include self-reported information entered by the patient and may not contain the complete representation of a treatment.) [facility] Date Exchanges Fill Volume Exchange Dialysis Access Meds-ent ered by Solution patient April 12 of 1 - Dextrose 1.5% Peritoneal Leigh lysis-PD Catheter-Double Cuff Coiled, Right Upper Quadrant of Abdomen - 2021 Access Placed on [facility] r 2020 Vitals Time Weight BP Heart Rate Temperature Blood Sugar April 12, 2022 75.83 kg 118/64 mmHg 68 beats per 96.6 deg. F - (AM) minute [facility] Date Exchanges Fill Volume Exchange Dialysis Access Meds-ent ered by Solution patient April 11 of 1 - Dextrose 1.5% Peritoneal Leigh lysis-PD Catheter-Double Cuff Coiled, Right Upper Quadrant of Abdomen - 2021 Access Placed on [facility] r 2020 Vitals Time Weight BP Heart Rate Temperature Blood Sugar April 11, 2022 75.56 kg 100/56 mmHg 65 beats per 97.9 deg. F - (AM) minute [facility] Date Exchanges Fill Volume Exchange Dialysis Access Meds-ent ered by Solution patient April 10 of 1 - Dextrose 1.5% Peritoneal Leigh lysis-PD Catheter-Double Cuff Coiled, Right Upper Quadrant of Abdomen - 2021 Access Placed on [facility] r 2020 Vitals Time Weight BP Heart Rate Temperature Blood Sugar April 10, 2022 75.46 kg 115/75 mmHg 81 beats per 97.5 deg. F - (AM) minute
--- OUTSIDE RECORDS SUMMARY | 2022-04-13 21:44 | XMS_ITS | Encounter Summary ---
:1940 Author Organization [facility] Address [address] [place] [id number] Support Name Relationship Address Phone SHAYY CARMONA Unavailable [address] [place] [address] SHAYY CARMONA Unavailable [address] [facility] [place] [address] Insurance Providers: All historical and current Section [...] MEDICARE MEDICARE PART Nov 19, PART A [id number] 800 MATHEWT P ATIENT (WNR) (M) A 2006 97A [phone] [place] MEDIC[place] MEDICARE PART Nov 19, PART B [id number] 800 MATHEW,T P ATIENT (WNR) (M) B 2006 97A [phone] [place] Selected Encounter This section includes the information on record at [place] for the Encounter. Date/Time Encounter Type Encounter Reason Provider Source Description Dec 10, 2021 07:47 Outpatient ADMIN PAT ACTIVPAUL THURMAN PM Encounter (MASNONCT) IHE Encounter Template Text not used by [place] Plan of Treatment: Future Appointments (+ 6 months) and Future Tests (+/- 45 days) The Plan of Treatment section includes future care activities for the patient from all [place] treatmentfacilities. This section includes future appointments and future orders which are active, pending orscheduled.Future Appointments This section includes appointments that were scheduled to occur 6 months from the date of the Encounter, up to a maximum of 20 appointments. The data comes from all [place] treatment facilities. Appointment Date/Time Appointment Type Appointment Facili ty Name Feb 10, 2022 05:44 PM AMBULATORY - NONE [facility] May 30, 2022 02:00 PM AMBULATORY - NONE [facility] Encounter Notes: All associated encounter notes This section contains the clinical notes associated to the Encounter. Date/Time Encounter Note(s) Provider Source Dec 09, 2021 07:51 PM NONVA NOTE[facility] T[facility]: COMMUNITY CARE-GRIS SELF PRESENTIN G CARE COORD PLAN STANDARD TITLE: NONVA NOTE DATE OF NOTE: DEC 09, 2021@19:51 ENTRY DATE: DEC 10, 2021@19:51:15 AUTHOR: JEANIE BELLA EXP COSIGNER: URGENCY: STATUS: COMPLETED COMMUNITY CARE-GRIS SELF PRESENTING CARE CO ORD PLAN NOTE Has ADDENDA Emergency Notification Intake Date Presenting to the Facility: Nov Method of Contact: Notified from [employer] worklist Notification ID: [id number] [facility] Referral #: [facility] Name: Hospital: 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 /paola/ PAUL CASON RN Utilization Management Signed: 02/02/2022 08:23 02/03/2022 ADDENDUM STATUS: COMPLETED ER [place] 12/09/21 dx gi bleed note states transfererd to [facility] to [facility] for import Has packet request within 6 months for César kelley [facility] Care team /paola/ PAUL CASON RN Utilization Management Signed: 02/03/2022 13:21 Receipt Acknowledged By: 02/08/2022 13:43 /paola/ SÁNCHEZ REYES RN [facility] UTILIZATION MANAGEMENT 02/08/2022 ADDENDUM STATUS: COMPLETED DISCHARGE NOTE CLINICAL CARE COORDINATION INFORMATION Hospital Name: [facility] Admit date: 12-09-21 Discharge date: 12-11-21 Level of Care: acute Primary Diagnosis: Hematemesis Other Issues for Outpatient Follow-up: - Follow an antireflux regimen with PO PPI 40 m g BID indefinitely and advise sleeping at inclination of 45 degree. Av oid meals or liquids 3-4 hours prior to sleep. - Recommend sucralfate 1 g QOD for 2 weeks. Discharge Disposition: Home DC Summary sent to [facility] for scanning Requested eligibility to mail a packet of inform ation to regarding VA benefits. /paola/ SÁNCHEZ REYES RN [facility]ILIZATION [facility]NAG[facility] Signed: 02/08/2022 13:53 02/08/2022 ADDENDUM STATUS: COMPLETED Updated ECR regarding transfer. /paola/ SÁNCHEZ REYES RN [facility]ILIZATION [facility]NAG[facility] Signed: 02/08/2022 13:53
--- OUTSIDE RECORDS SUMMARY | 2022-04-13 21:44 | XMS_ITS ---
:1940 Author Organization [facility] Address [address] [place] [address] Care Team Providers Name Role Phone Unavailable Primary Care Provider Unavailable Procedures Procedure Name Priority Date/Time Associated Comments Diagnosis (TTE) 2D ECHO Routine 04/05/2022 3:55 Effusion Results for DOPPLER COLOR PM CDT Pericardial Acute this proc edure ([facility]) are in the results section. ECG Routine 04/05/2022 2:01 Effusion Results for PM CDT Pericardial Acute this proce dure ([facility]) are in the results section. 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 Failure (HCC) Atrial Fibrillation Paroxysmal ([facility]) Bundle Branch Block Left Dialysis Peritoneal Status ([facility]) SEDIMENTATION RATE, Routine 04/04/2022 Effusion Results for B 11:36 AM CDT Pericardial Acute this proce dure ([facility]) are in the Chronic Systolic results (Congestive) Heart section. Failure (HCC) Atrial Fibrillation Paroxysmal ([facility]) Bundle Branch Block Left Dialysis Peritoneal Status ([facility]) CBC WITH Routine 04/04/2022 Effusion Results for DIFFERENTIAL, B 11:36 AM CDT Pericardial Acute this pr ocedure ([facility]) are in the Chronic Systolic results (Congestive) Heart section. Failure (HCC) Atrial Fibrillation Paroxysmal (HCC) Bundle Branch Block Left Dialysis Peritoneal Status ([facility]) C-REACTIVE PROTEIN Routine 04/04/2022 Effusion Results f or (CRP), S/P 11:35 AM CDT Pericardial Acute this proce dure ([facility]) are in the Chronic Systolic results (Congestive) Heart section. Failure (HCC) Atrial Fibrillation Paroxysmal (HCC) Bundle Branch Block Left Dialysis Peritoneal Status ([facility]) NT-PRO B-TYPE Routine 04/04/2022 Effusion Results for NATRIURETIC PEPTIDE 11:35 AM CDT Pericardial Acute thi s procedure (BNP), S (HCC) are in the Chronic Systolic results (Congestive) Heart section. Failure (HCC) Atrial Fibrillation Paroxysmal (HCC) Bundle Branch Block Left Dialysis Peritoneal Status (HCC) COMPREHENSIVE Routine 04/04/2022 Effusion Results for METABOLIC PANEL, S/P 11:35 AM CDT Pericardial Acute th is procedure (HCC) are in the Chronic Systolic results (Congestive) Heart section. Failure (HCC) Atrial Fibrillation Paroxysmal (HCC) Bundle Branch Block Left Dialysis Peritoneal Status (HCC) CT CHEST WITHOUT IV RAD - Routine 03/02/2022 Pneumonitis Due To R esults for CONTRAST (most inpatients 10:14 AM CDT Inhalation Of Food this procedure and all And Vomit (HCC) are in the outpatients) results section. from Last 3 Months Allergies Active [...] Refills Start Date End Date Status allopurinol (ZYLOPRIM) Take 100 mg by 0 11/09/2018 Active 100 mg tablet mouth daily. calcitRIOL (ROCALTROL) 1 capsule. 3 times 0 12/28/19 19 Active 0.25 mcg capsule weekly warfarin (COUMADIN) 2 1 mg on //Sun 0 01/07/2019 Active mg tablet and 2 mg on ///Mon. metoprolol tartrate Take 25 mg by 0 Active (LOPRESSOR) 25 mg mouth 2 (two) tablet times a day. multivitamin renal Take 1 tablet by 30 tablet 0 12/08/2021 Active failure (DIALYVITE) mouth daily with 100-1 mg tablet dinner. torsemide (DEMADEX) 20 Take 1 tablet (20 0 2 Active mg tablet mg total) by mouth daily. omeprazole (PriLOSEC) Take 1 capsule (20 [address] capsule mg total) by mouth 2 (two) times a day before breakfast and dinner. 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 Never 04/11/2022 How many drinks containing alcohol do you have on a typical Not asked day when you are drinking? How often do you have six or more drinks on one occasion? No t asked Comment: Not asked Social Isolation Answer Date Recorded In a typical week, how many times do you Patient refused 04/11/2022 talk on the phone with family, friends, or neighbors? How often do you get together with friends Patient refused 04/11/2022 or relatives? How often do you attend restorationist or hinduism More than 4 time s per year 04/11/2022 services? Do you belong to any clubs or organizations Yes 04/11/2022 such as restorationist groups, unions, fraternal or athletic groups, or school groups? How often do you attend meetings of the Patient refused 04/11/2022 clubs or organizations you belong to? Are you now , , , 04/11/2022 , never or living with a partner? Physical Activity Answer Date Recorded On average, how many days per week do you engage in moderate to 7 days 04/11/2022 strenuous exercise (like walking fast, running, jogging, dancing, swimming, biking, or other activities that cause a light or heavy sweat)? On average, how many minutes do you engage in exercise at th is 90 min 04/11/2022 level? Stress Answer Date Recorded Do you feel stress - tense, restless, nervous, or Only a lit tle 04/11/2022 anxious, or unable to sleep at night because your mind is troubled all the time - these days? Financial Resource Strain Answer Date Recorded How hard is it for you to pay for the very basics like Not v angelito hard 04/11/2022 food, housing, medical care, and heating? Intimate Partner Violence Answer Date Recorded Within the last year, have you been afraid of your partner o r No 04/11/2022 ex-partner? Within the last year, have you been humiliated or emotionall y No 04/11/2022 abused in other ways by your partner or ex-partner? Within the last year, have you been kicked, hit, slapped, or No 04/11/2022 otherwise physically hurt by your partner or ex-partner? Within the last year, have you been raped or forced to have any No 04/11/2022 kind of sexual activity by your partner or ex-partner? Food Insecurity Answer Date Recorded Within the past 12 months, you worried that your food would Never true 04/11/2022 run out before you got money to buy more. Within the past 12 months, the food you bought just didn't N ever true 04/11/2022 last and you didn't have money to get more. Transportation Needs Answer Date Recorded In the past 12 months, has lack of transportation kept you f rom No 04/11/2022 medical appointments or from getting medications? In the past 12 months, has lack of transportation kept you f rom No 04/11/2022 meetings, work, or getting things needed for daily living? Housing Stability Answer Date Recorded In the last 12 months, was there a time when you were not ab le No 04/11/2022 to pay the mortgage or rent on time? In the last 12 months, how many places have you lived? 1 04/11/2022 In the last 12 months, was there a time when you did not hav e a No 04/11/[address] sleep or slept in a retirement (including now)? Education Answer Date Recorded What is the highest level of school you have completed or 12 th grade 02/14/2019 the highest degree you have received? Sex Assigned at Date Recorded Male 04/11/2022 12:05 PM CDT Last Filed Vital Signs Vital Sign Reading [...] Index 26.47 03/02/2022 11:16 AM CDT Results (TTE) 2D ECHO DOPPLER COLOR (04/05/2022 3:55 PM CDT) [facility] Method Time Signature Ejection Fraction 66 MC CV EIMS Sinus of Valsalva 36 MC CV EIMS Mid-Ascending Aorta 38 MC CV EIMS LV Mass Index 104 MC CV EIMS LV End-Diastolic 53 MC CV EIMS Diameter LV End-Systolic 34 MC CV EIMS Diameter LV End-Diastolic 136 MC CV EIMS Volume LV End-Systolic 46 MC CV EIMS Volume MV E Velocity 1 MC CV EIMS MV A Velocity 1.20 MC CV EIMS MV E/A 0.83 MC CV EIMS MV e' Velocity 0.04 MC CV EIMS Medial MV e' Velocity 0.06 MC CV EIMS Lateral MV E/e' Medial 25 MC CV EIMS MV E/e' Lateral 16.70 MC CV EIMS Left ventricular 50 MC CV EIMS stroke volume index Cardiac Output 5.92 MC CV EIMS Cardiac Index 3.09 MC CV EIMS LV Interventricular 10 MC CV EIMS Septal Wall Thickness LV Posterior Wall 10 MC CV EIMS Thickness LV Relative Wall 38 MC CV EIMS Thickness RV 4-Chamber Basal 38 MC CV EIMS Diameter RV 4-Chamber Mid 23 MC CV EIMS Diameter RV 4-Chamber Length 64 MC CV EIMS Tricuspid Annular S? 0.17 MC CV EIMS RV Free Wall Strain -26 MC CV EIMS TR Vmax 2.57 MC CV EIMS RA Pressure 10 MC CV EIMS RV Systolic Pressure 36 MC CV EIM S AV mean gradient 16 MC CV EIMS Aortic valve area 1.65 MC CV EIMS Aortic Valve Area 0.86 MC CV EIMS Index Aortic Valve 0.40 MC CV EIMS Dimensionless Index MV mean gradient 3 MC CV EIMS LA Volume Index 48 MC CV EIMS Aortic Valve 2.50 MC CV EIMS Systolic Peak Velocity Anatomical Region Laterality Modality Echocardiography Specimen (Source) Anatomical Collection Method Collection Time Re ceived Time Location / / Volume Laterality 04/05/2022 2:22 PM CDT Impressions 04/07/2022 11:43 AM CDT LEFT VENTRICLE:Normal left ventricular chamber size. Normal left ventricular wall thickness. Calculated 2-D biplane volumetric left ventricular ejection fraction 66%. Left ventricular strain assessment was performed but not reported based on database management specialist's judgment. No regional wall motion abnormalities. Abnormal ventricular septal motion due to conduction. Indeterminate left ventricular diastolic function. RIGHT VENTRICLE:Normal right ventricular chamber size. Normal right ventricular systolic function. Estimated right ventricular systolic pressure 36 mmHg (systolic blood pressure 118 mmHg). Averaged righ t ventricular free wall longitudinal pea k systolic strain, system calculated, is -25% (norm al = more negative than -24%). ATRIA:Severely enlarged left atrial size . Left atrial volume index 48 ml/m2. Enlarged right atrial size. CARDIAC VALVES:Trileaflet aortic valve. Mild calcific aortic valve stenosis. Aortic valve systolic mean Doppler gradient 16 mmHg. Aortic valve area by Doppler 1.65 cm2. Mild aortic valve regurgitation. Calcified mitral annulus. Mitral valve d iastolic mean Doppler gradient 3 mmHg (heart rate 69 BPM). Mild mitral valve regurgitation. Normal pulmonary valve. Trivial pulmonary valve regurgitation. Thickened tricuspid valve. Mild tricuspid valve regurgitation. OTHER ECHO FINDINGS:Enlarged inferior ve na cava size with normal inspiratory collapse (>50%). Normal mid ascending aorta diameter of 38 mm. Normal sinus of Valsalva diameter of 36 mm. Abdominal aorta incompletely visualized. Normal abdominal aorta Doppler flow pattern. No atrial level sh unt by color flow imaging. No intracardiac mass or thrombus, but the left atrial appendage cannot be visualized adequately with transthoracic echo to exclude thrombus in this location. Small circumferential pericardial effusion. For the complete report, see the Order[facility] Documents. Narrative 04/07/2022 11:43 AM CDT For the complete report, see the Order-Level Documents. Final Impressions 1. Normal left ventricular chamber size. Calculated ejection fraction 66%. 2. Abnormal ventricular septal motion du e to conduction. No regional wall motion abnormalities. 3. Normal right ventricular chamber size and systolic function. 4. Averaged right ventricular free wall longitudinal peak systolic strain, system calculated, is -25% (normal = more negative than -24%). 5. Estimated right ventricular systolic pressure 36 mmHg (systolic blood pressure 118 mmHg). 6. Mild calcific aortic valve stenosis. Mean gradient 16 mmHg. Aortic valve area by Doppler 1.65 cm?. Mild aortic valve regurgitation. 7. Calcified mitral annulus. Mean gradie nt 3 mmHg (heart rate 69 BPM). Mild mitral valve regurgitation. 8. Enlarged inferior vena cava size with normal inspiratory collapse (>50%). 9. Small circumferential pericardial eff usion. Procedure Note Delmy Uribe M.D., Ph.D. - 04/07/2022 For the complete report, see the [employer] Documents. Final Impressions 1. Normal left ventricular chamber size. Calculated ejection fraction 66%. 2. Abnormal ventricular septal motion du e to conduction. No regional wall motion abnormalities. 3. Normal right ventricular chamber size and systolic function. 4. Averaged right ventricular free wall longitudinal peak systolic strain, system calculated, is -25% (normal = more negative than -24%). 5. Estimated right ventricular systolic pressure 36 mmHg (systolic blood pressure 118 mmHg). 6. Mild calcific aortic valve stenosis. Mean gradient 16 mmHg. Aortic valve area by Doppler 1.65 cm?. Mild aortic valve regurgitation. 7. Calcified mitral annulus. Mean gradie nt 3 mmHg (heart rate 69 BPM). Mild mitral valve regurgitation. 8. Enlarged inferior vena cava size with normal inspiratory collapse (>50%). 9. Small circumferential pericardial eff usion. Findings LEFT VENTRICLE:Normal left ventricular c hamber size. Normal left ventricular wall thickness. Calculated 2-D biplane volumetric left ventricular ejection fraction 66%. Left ventricular strain assessment was performed but not reported based on inte rpreter's judgment. No regional wall motion abnormalities. Abnormal ventricular septal motion due to conduction. Indeterminate left ventricular diastolic function. RIGHT VENTRICLE:Normal right ventricular chamber size. Normal right ventricular systolic function. Estimated right ventricular systolic pressure 36 mmHg (systolic blood pressure 118 mmHg). Averaged right ventricular free wall longitudinal peak systolic strain, system calculated, is - 25% (normal = more negative than -24%). ATRIA:Severely enlarged left atrial size . Left atrial volume index 48 ml/m2. Enlarged right atrial size. CARDIAC VALVES:Trileaflet aortic valve. Mild calcific aortic valve stenosis. Aortic valve systolic mean Doppler gradient 16 mmHg. Aortic valve area by Doppler 1.65 cm2. Mild aortic valve regurgitation. Calcified mitral annulus. Mitral valve diastolic m gwen Doppler gradient 3 mmHg (heart rate 69 BPM). Mild mitral valve regurgitation. Normal pulmonary valve. Trivial pulmonary valve regurgitation. Thickened tricuspid valve. Mild tricuspid valve regurgitation. OTHER ECHO FINDINGS:Enlarged inferior ve na cava size with normal inspiratory collapse (>50%). Normal mid ascending aorta diameter of 38 mm. Normal sinus of Valsalva diameter of 36 mm. Abdominal aorta incompletely visualized. Normal abdominal aorta Doppl er flow pattern. No atrial level shunt by color flow imaging. No intracardiac mass or thrombus, but the left atrial appendage cannot be visualized adequately with transthoracic echo to exclude thrombus in this locatio n. Small circumferential pericardial effusion. For the complete report, see the [employer] Documents. Jessa Heredia M.D. CV ECHO PROCEDURES ECG 12 Lead (04/05/2022 2:01 PM CDT) P athologist Signature Ventricular Rate 62 BPM MUSE ECG/Min [place] Interval 206 ms MUSE QRSD Interval 128 ms MUSE QT Interval 446 ms MUSE QTC Interval 452 ms MUSE P [place] 10 degrees MUSE R [place] 6 degrees MUSE T Wave [place] 26 degrees MUSE Specimen Anatomical Collection Method Collection Time Receive d Time (Source) Location / / Volume Laterality 04/05/2022 2:01 PM 2:08 CDT PM CDT Impressions MUSE - 04/05/2022 2:08 PM CDT Normal sinus rhythm with 1st degree A-V block Left bundle branch block Nonspecific ST abnormality When compared with ECG of 09-DEC-2021 15 :35, Rhythm has changed Reviewed by NICHOL Blanco Narrative This result has an attachment that is no t available. Procedure Note Paul Bennett Jr., M.D. - 04/05/2022For matting of this note might be different from the original. IMPRESSION: Normal sinus rhythm with 1st degree A-V block Left bundle branch block Nonspecific ST abnormality When compared with ECG of 09-DEC-2021 15 :35, Rhythm has changed Reviewed by NICHOL Blanco Jessa Heredia M.D. 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 (04/05/2022 6:00 AM CDT) P athologist Signature Min Heart Rate 66 bpm INFOBION[facility] MOME Max Heart Rate 142 bpm INFOBION[facility] MOME Mean Heart 75 bpm INFOBION[facility] MOME Rate VE Total Beats 1331 count INFO[facility]ION[facility] VE Percent 1 percent INFO[facility]ION[facility] Beats SVE Total 7190 count INFOBIONIC MOME Beats SVE Percent 7 percent [facility]ION[facility] Beats AF Count 1 count [facility] AF Duration 6h 30m duration INFOBION[facility] MOME AF Horse Shoe 29 percent INFOBION[facility] MOME Longest AF 7h 5m duration INFOBIONIC MOME Duration Symptom Count 2 count INFOBIONIC MOME Specimen (Source) Anatomical Collection Method Collection Time Re ceived Time Location / / Volume Laterality 04/04/2022 12:08 PM CDT Narrative INFOBIONIC MOME - 04/11/2022 4:39 PM CDT 1. The basic rhythm was sinus with a first degree AV delay and a left bundle- branch block morphology. Intermittent atrial fibrillation occurr ed. The total analyzed time was 22h 15m. The heart rate varied from 66 to 142 bpm. The average HR was 75 bpm. There was an AF burden of 29%. The longe st AF duration was 7h 5m. The total time in AF was 7h 5m. 2. Premature ventricular complexes and/o r aberrantly conducted complexes were noted singly, in couplets, and in a bigeminal and trigeminal pattern. There were 1,364 PVCs recorded with a PVC burden of 1%. 3. Premature supraventricular complexes were noted singly, in couplets, in bigeminy, and in thirteen 3-5 beat atrial runs, maximum rate of 111 bpm. There were 7,190 PACs recorded with a PAC burden of 7%. 4. A total of 2 symptomatic events were noted, which included lightheaded. ??The basic rhythm was sinus. The heart rate varied from 81 to 95 bpm. PACs were seen singly at and around these times. Tumor Registrar: Marilou Zimmer / Violet Cotton Fellow: Clemente Dos Santos MD Procedure Note Crow Hodges M.D. - 04/11/2022Form atting of this note might be different from the original. 1. The basic rhythm was sinus with a fir st degree AV delay and a left bundle- branch block morphology. Intermittent atrial fibrillation occurred. The total analyzed time was 22h 15m. The heart rate varied from 66 to 142 bpm. The average HR was 75 bpm. There was an AF burden of 29%. The longe st AF duration was 7h 5m. The total time in AF was 7h 5m. 2. Premature ventricular complexes and/o r aberrantly conducted complexes were noted singly, in couplets, and in a bigeminal and trigeminal pattern. There were 1,364 PVCs recorded with a PVC burden of 1%. 3. Premature supraventricular complexes were noted singly, in couplets, in bigeminy, and in thirteen 3-5 beat atrial runs, maximum rate of 111 bpm. There were 7,190 PACs recorded with a PAC burden of 7%. 4. A total of 2 symptomatic events were noted, which included lightheaded. The basic rhythm was sinus. The heart rate varied from 81 to 95 bpm. PACs were seen singly at and around these times. Tumor Registrar: Marilou Zimmer / Violet Cotton Fellow: Clemente Dos Santos MD Mehrdad Lazcano APRN, C.N.P. CV CARDIAC SERVICES PRO CEDURES Performing Organization Address City/State/ZIP Code Phon e Number INFOBIONIC MOME INFOBIONIC MOME NA (ABNORMAL) Sedimentation Rate (04/04/2022 11:36 AM CDT) [facility] [place] Method Time Signature Sedimentation 61 (H) 3 - 28 04/04/2022 DTL Rate, B mm/h 12:50 PM CDT Specimen Anatomical Collection Method Collection Time Receive d Time (Source) Location / / Volume Laterality Blood (Blood, 04/04/2022 11:36 04/04/2022 Venous) AM CDT 11:56 AM CDT Mehrdad Lazcano APRN, C.N.P. LAB BLOOD ADD-ON Performing Organization Address City/[facility] Code Phon e Number [facility] - [address] [place], [place] [address] [facility] [place] [address] [facility] [address] [facility] (ABNORMAL) CBC with Differential, Blood (04/04/2022 11:36 AM CDT) [facility] [place] Method Time Signature Hemoglobin 11.7 (L) 13.2 - 04/04/2022 DTL 16.6 g/dL 12:10 PM CDT Hematocrit 36.0 (L) 38.3 - 04/04/2022 DTL 48.6 % 12:10 PM CDT Erythrocytes 3.63 (L) 4.35 - 04/04/2022 DTL 5.65 12:10 PM CDT x10(12)/L MCV 99.2 (H) 78.2 - 04/04/2022 DTL 97.9 fL 12:10 PM CDT RBC Distrib Width 14.2 11.8 - 04/04/2022 DTL 14.5 % 12:10 PM CDT Platelet Count 170 135 - 317 04/04/2022 DTL x10(9)/L 12:10 PM CDT Leukocytes 6.2 3.4 - 9.6 04/04/2022 DTL x10(9)/L 12:10 PM CDT Neutrophils 4.61 1.56 - 04/04/2022 DTL 6.45 12:10 PM CDT x10(9)/L Lymphocytes 0.68 (L) 0.95 - 04/04/2022 DTL 3.07 12:10 PM CDT x10(9)/L Monocytes 0.58 0.26 - 04/04/2022 DTL 0.81 12:10 PM CDT x10(9)/L Eosinophils 0.34 0.03 - 04/04/2022 DTL 0.48 12:10 PM CDT x10(9)/L Basophils <0.03 0.01 - 04/04/2022 DTL 0.08 12:10 PM CDT x10(9)/L Specimen Anatomical Collection Method Collection Time Receive d Time (Source) Location / / Volume Laterality Blood (Blood, 04/04/2022 11:36 04/04/2022 Venous) AM CDT 11:56 AM CDT Mehrdad Lazcano APRN, C.N.P. LAB BLOOD ADD-ON Performing Organization Address City/State/ZIP Code Phon e Number [facility] - [facility] [address] [place], [place] [address] [facility] [place] [address] [facility] [address] [facility] (ABNORMAL) NT-Pro B-Type Natriuretic Peptide (BNP) (04/04/2022 11:35 AM CDT) P athologist Signature NT-Pro BNP 2314 (H) <=540 pg/mL 04/04/2022 DTL 1:55 PM CDT Comment: NT-proBNP values less than 300 pg/mL hav e a 99% negative predictive value for excluding acute con gestive heart failure. A cutoff of 1200 pg/mL for hardik ents with an eGFR<60 yields a diagnostic sensitivity and spec ificity of 89% and 72% for acute congestive heart failure. A diagnostic NT-proBNP cutoff of 1800 pg/mL has been suggested in adults over 75 years of age in the absence of r enal failure. Specimen Anatomical Collection Method Collection Time Receive d Time (Source) Location / / Volume Laterality Blood (Blood, 04/04/2022 11:35 04/04/2022 Venous) AM CDT 12:06 PM CDT Mehrdad Lazcano APRN, C.N.P. LAB BLOOD ADD-ON Performing Organization Address City/[facility] Phon e Number [facility] - [address] [place] [address] (ABNORMAL) CRP (C-Reactive Protein) (04/04/2022 11:35 AM CDT) P athologist Signature C-Reactive 16.2 (H) <=8.0 mg/L 04/04/2022 DTL Protein (CRP), 1:55 PM CDT S Specimen Anatomical Collection Method Collection Time Receive d Time (Source) Location / / Volume Laterality Blood (Blood, 04/04/2022 11:35 04/04/2022 Venous) AM CDT 12:06 PM CDT Mehrdad Lazcano APRN, C.N.P. LAB BLOOD ADD-ON Performing Organization Address City/[facility] Phon e Number [facility] - [address] (ABNORMAL) Comprehensive Metabolic Panel (04/04/2022 11:35 AM CDT) Analysis Performed At Patho logist Time Signature Potassium, S 3.9 3.6 - 5.2 04/04/2022 DTL mmol/L 1:48 PM CDT Sodium, S 140 135 - 145 04/04/2022 DTL mmol/L 1:48 PM CDT Chloride, S 99 98 - 107 04/04/2022 DTL mmol/L 1:48 PM CDT Bicarbonate, S 29 22 - 29 04/04/2022 DTL mmol/L 1:48 PM CDT Anion Gap 12 7 - 15 04/04/2022 DTL 1:48 PM CDT BUN (Blood Urea 65 (H) 8 - 24 04/04/2022 DTL Nitrogen), S mg/dL 1:48 PM CDT Creatinine 3.67 (H) 0.74 - 04/04/2022 DTL 1.35 mg/dL 1:48 PM CDT eGFR-Non <15 (L) >=60 04/04/2022 DTL Black/ mL/min/BSA 1:48 PM CDT Filipino Comment: ----ADDITIONAL INFORMATION---- Estimated GFR calculated using the 2009 CKD_EPI creatinine equation. eGFR-Black/ 17 (L) >=60 mL/min/BSA 2021 1:48 PM CDT DTL Comment: ----ADDITIONAL INFORMATION---- Estimated GFR calculated using the 2009 CKD_EPI creatinine equation. Calcium, Total, S 8.7 (L) 8.8 - 10.2 mg/dL 04/04/2022 1:48 PM CDT DTL Glucose, S 111 70 - 140 mg/dL 04/04/2022 1:48 PM CDT D TL Protein, Total, S 6.2 (L) 6.3 - 7.9 g/dL 04/04/2022 1:48 P M CDT DTL Albumin, S 3.4 (L) 3.5 - 5.0 g/dL 04/04/2022 1:48 PM CDT D TL Aspartate Aminotransferase 38 8 - 48 U/L 04/04/2022 1 :48 PM CDT DTL (AST), S Alkaline Phosphatase, S 324 (H) 40 - 129 U/L 04/04/2022 1: 48 PM CDT DTL Alanine Aminotransferase 31 7 - 55 U/L 04/04/2022 1:4 8 PM CDT DTL (ALT), S Bilirubin, Total, S 0.3 <=1.2 mg/dL 04/04/2022 1:48 PM CDT DTL Specimen Anatomical Collection Method Collection Time Receive d Time (Source) Location / / Volume Laterality Blood (Blood, 04/04/2022 11:35 04/04/2022 Venous) AM CDT 12:04 PM CDT Mehrdad Lazcano APRN, C.N.P. LAB BLOOD ADD-ON Performing Organization Address City/State/ZIP Code Phon e Number [facility] - [address] [place], [place] [address] [facility] [place] [address] Laboratories-[facility] [address] Chest without IV Contrast (03/02/2022 10:14 [...]
--- OUTSIDE RECORDS SUMMARY | 2022-04-13 21:44 | XMS_ITS | Encounter Summary ---
:1940 Author Organization [facility] Address [address] [place] [address] Care Team Providers Name Role Phone Unavailable Primary Care Provider Unavailable Reason for Visit Reason Comments Pre-visit Intake Encounter Details Date Type Department Care Team Description 04/12/2022 Clinical Communication Visit Review in Pr e-visit Intake [place], [place] [address] [place] [address] Social History Tobacco Use Types Packs/Day Years [...] How often do you attend tenriism or sabianist More than 4 time s per year 04/11/2022 services? Do you belong to any clubs or organizations Yes 04/11/2022 such as tenriism groups, unions, fraternal or [...] place to sleep or slept in a residential (including now)? Education Answer Date Recorded What is the highest level of school you have completed or 12 th grade 02/14/2019 the highest degree you have received? Sex Assigned at Date Recorded Male 04/11/2022 12:05 PM CDT documented as of this encounter Plan of Treatment Upcoming Encounters Date Type Specialty Care Team Description 04/15/2022 Comprehensive Visit Cardiovascular Disease Kayla Heredia M.D. [address] [place] [phone] (Wo rk) documented as of this encounter Visit Diagnoses Not on filedocumented in this encounter
--- OUTSIDE RECORDS SUMMARY | 2022-04-13 21:44 | XMS_ITS | Encounter Summary ---
:1940 Author Organization [facility] Address [address] [place] [address] Support Name Relationship Address Phone SHAYY CARMONA Unavailable [address] [place] [address] SHAYY CARMONA Unavailable [address] [facility] [place] [place] [address] Insurance Providers: All historical and current Section [...] MEDICARE MEDICARE PART Nov 19, PART A [id number] MATHEW,T P ATIENT (WNR) (M) A 2006 97A [phone] [place] MEDICARE MEDICARE PART Nov 19, PART B [id number] MATHEW,T P ATIENT (WNR) (M) B 2006 97A [phone] [place] Selected Encounter This section includes the information on record at DC for the Encounter. Date/Time Encounter Type Encounter Reason Provider Source Description Feb 10, 2022 05:44 Outpatient ADMIN PAT ACTIVTIES SÁNCHEZ REYES PM Encounter (MASNONCT) L IHE Encounter Template Text not used by DC Plan of Treatment: Future Appointments (+ 6 months) and Future Tests (+/- 45 days) The Plan of Treatment section includes future care activities for the patient from all DC treatmentfacilities. This section includes future appointments and future orders which are active, pending orscheduled.Future Appointments This section includes appointments that were scheduled to occur 6 months from the date of the Encounter, up to a maximum of 20 appointments. The data comes from all DC treatment facilities. Appointment Date/Time Appointment Type Appointment Facili ty Name May 30, 2022 02:00 PM AMBULATORY - NONE [facility] Active, Pending, and Scheduled Orders This section includes a listing of several types of active, pending, and scheduled orders, including clinic medications orders, diagnostic test orders, procedure orders and consult orders; where the start date of the order is 45 days before the date of the Encounter or 45 days after the date of the Encounter. The data comes from all DC treatment facilities. Test Date/Time Test Type Test Details Facility Name Feb 25, 2022 04:52 PM Consult Order COMMUNITY CARE-PRIMARY CAR E [facility] Cons Central Sterilization Technician's Choice Encounter Notes: All associated encounter notes This section contains the clinical notes associated to the Encounter. Date/Time Encounter Note(s) Provider Source Dec 09, 2021 05:53 PM NONVA NOTE: JEANIE BELLA [facility] LOCAL TITLE: COMMUNITY CARE-GRIS SELF PRESENTIN G CARE COORD PLAN STANDARD TITLE: NONVA NOTE DATE OF NOTE: DEC 09, 2021@17:53 ENTRY DATE: FEB 10, 2022@17:53:26 AUTHOR: JEANIE BELLA EXP COSIGNER: URGENCY: STATUS: COMPLETED COMMUNITY CARE-GRIS SELF PRESENTING CARE CO ORD PLAN NOTE Has ADDENDA Emergency Notification Intake Date Presenting to the Facility: Nov Method of Contact: Notified from CM Sistemi worklist Notification ID: [id number] [facility] Referral #: [facility] Name: Hospital: [facility] Address: [address] [place] [address] City: [place] State: [place] Zip Code: [address] Phone : [facility] Facility Point of Contact: Name: Chief complaint: GI BLEED Primary Diagnosis: Disposition Admitted Route of Admission: Other: Date of Admission: Nov Admitting Diagnosis: GI BLEED [facility] Provider: Confirm Level of Care: /paola/ JEANIE BELLA UNIT CONTROL CLERK Signed: 02/10/2022 17:54 Receipt Acknowledged By: 02/15/2022 08:47 /paola/ SÁNCHEZ REYES RN [facility] 02/15/2022 ADDENDUM STATUS: COMPLETED Duplicate entry /tahira REYES RN [facility] Signed: 02/15/2022 08:48
--- OUTSIDE RECORDS SUMMARY | 2022-04-13 21:44 | XMS_ITS | Encounter Summary ---
:1940 Author Organization [facility] Address [address] [place] [address] Care Team Providers Name Role Phone Unavailable Primary Care Provider Unavailable Reason for Referral Outpatient (Routine) - Closed Specialty Diagnoses / Procedures Referred By Contact Refer red To Contact Diagnoses Effusion Pericardial Acute (HCC) Jessa Heredia M.D. [facility] Procedures Echo Transthoracic (TTE) [address] [place], [place] [phone] Referral ID Status Reason Start Date Expiration Date Visits Requ ested Visits Authorized [id number] Closed 03/02/2022 03/02/2023 1 1 Reason for Visit Outpatient (Routine) - Closed Specialty Diagnoses / Procedures Referred By Contact Refer red To Contact Diagnoses Effusion Pericardial Acute (HCC) Jessa Heredia M.D. [facility] Procedures Echo Transthoracic (TTE) [address] [place], [place] [address] Referral ID Status Reason Start Date Expiration Date Visits Requ ested Visits Authorized [id number] Closed 03/02/2022 03/02/2023 1 1 Encounter Details Date Type Department Care Team Description 04/05/2022 Hospital Department of Jessa Heredia Effusion Encounter Cardiovascular Trinh Mendes Pericardial Acute Diseases in [place], [facility] [address] [facility] ([facility]) [place], [place] [address] [facility] [address] [place], [place] [phone] (Work) [phone] Social History Tobacco Use Types Packs/Day Years [...] or relatives? How often do you attend baptism or hoahaoism More than 4 time s per year 04/11/2022 services? Do you belong to any clubs or organizations Yes 04/11/2022 such as baptism groups, unions, fraternal or athletic groups, or [...] place to sleep or slept in a correction (including now)? Education Answer Date Recorded What is the highest level of school you have completed or 12 th grade 02/14/2019 the highest degree you have received? Sex Assigned at Date Recorded Male 04/11/2022 12:05 PM CDT documented as of this encounter Medications at [...] Cardiovascular Disease Kayla Heredia M.D. [address] [place] [phone] (Wo rk) documented as of this encounter Procedures Procedure Name Priority Date/Time Associated Diagnosis Comme nts (TTE) 2D ECHO Routine 04/05/2022 3:55 PM Effusion Pericardial Results for this DOPPLER COLOR CDT Acute (HCC) procedure are in the results section. documented in this encounter Results (TTE) 2D ECHO DOPPLER COLOR (04/05/2022 3:55 PM CDT) Patholo gist Method Time Signature Ejection Fraction 66 MC [...] was performed but not reported based on certified court interpreter's judgment. No regional wall motion abnormalities. Abnormal [...] For the complete report, see the [facility] Documents. Narrative 04/07/2022 11:43 AM CDT For [...] 04/07/2022 For the complete report, see the [facility] Documents. Final Impressions 1. Normal left ventricular [...] Documents. Jessa Heredia M.D. CV ECHO PROCEDURES documented in this encounter Visit Diagnoses Diagnosis Effusion Pericardial Acute (HCC) documented in this encounter
--- OUTSIDE RECORDS SUMMARY | 2022-04-13 21:44 | XMS_ITS | Clinical Summary ---
:1940 Author Organization [facility] Address [address] [place] [address] Care Team Providers Name Role Phone Unavailable Primary Care Provider Unavailable Source Comments Patient records contain information from all sites at [facility]. For routine questions regarding patient records, call [phone] during business hours, M-F 8:00 AM - 5:00 PM Central Time. Record requests for emergency care only can be directed to [phone] at any time.[facility] Allergies Active Allergy Reactions Severity Noted [...] and dinner. 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 ([facility]) 04/04/2022 Hospital Encounter Cardiovascular Neno, Effusio n Pericardial Acute ([facility]); Disease Liselle M, Chronic Systoli c (Congestive) Heart Failure (HCC); STEWARD/STEWARDESS THIRD CLASS, C.N.P. Atrial Fibrilla tion Paroxysmal (HCC); Bundle Branch B lock Left; Dialysis Perito ibis Status ([facility]) 04/04/2022 Hospital Encounter Laboratory Medicine Neno, Ef fusion Pericardial Acute ([facility]); Liselle M, Chronic Systoli c (Congestive) Heart Failure (HCC); STEWARD/STEWARDESS THIRD CLASS, C.N.P. Atrial Fibrilla tion Paroxysmal (HCC); Bundle Branch B lock Left; Dialysis Perito ibis Status ([facility]) 03/03/2022 Clinical Pulmonary Medicine Yan, Release o f Communication Jessa Mendes, Information M.Candida 03/02/2022 Hospital Encounter Pulmonary Medicine Stan Heredia usion Pleural Jessa Mendes, (Primary Dx) M.DBailey 03/02/2022 Hospital Encounter Radiology LiorPeng becerril, Pneumoni tis Due To M.D. Inhalation Of F ood And Vomit ([facility]) 03/02/2022 Clinical Cardiovascular Meat Grader, Triage Communication Disease Trinh Alcaraz 03/02/2022 Orders Only Pulmonary Medicine Jaqueline Heredia, Pericardial Acu steffi Tsang ([facility]) (Primary Dx) 01/26/2022 Refill Pulmonary Medicine Maria [...] How often do you attend restorationist or pentecostalism More than 4 time s per year [...] place to sleep or slept in a intermediate (including now)? Education Answer Date Recorded What [...] Visit Cardiovascular Disease Kayla Heredia M.D. [address] [place] [address] (Wo rk) Health Maintenance Due Date Last Done Comments Depression Screening (Annual 08/21/2021 PHQ-2) COVID-19 Vaccine (4 - Booster for 09/17/2021 05/18/2021, , Pfizer series) 09/23/2020 Influenza Vaccine (#1) 2022 05/18/2021, 05/06/2020, 05/06/2020, Additional history exists Office Visit for Blood Pressure 12/09/2022 12/09/2021 Check / Re-check Creatinine Level 04/04/2023 04/04/2022, 12/11/2021, 12/10/2021, Additional history exists Potassium Level 04/04/2023 04/04/2022, 12/11/2021, 12/10/2021, Additional history exists Sodium Level 04/04/2023 04/04/2022, 12/11/2021, 12/10/2021, Additional history exists DTaP,Tdap,and Td Vaccines (2 - Td 07/10/2024 07/10/2014, or Tdap) Pneumococcal vaccine (65+ years) Completed 11/04/2014, Zoster Vaccines Completed 02/14/2019, 12/11/2018, 04/08/2010 Fall Risk Screen (Annual) Completed 12/10/2021 Medical Devices Implanted Type Area Foreign Exchange Student Coordinator Device Shelf Model / Identifier Expiration Date Ser ial / Lot Osteomed-Screw Auto-Drive 1.6 X 4 - Baptiste [id number] Hardware e.g. [employer] Implanted: Qty: 16 on 06/19/2002 pins/screws/r ods Description: Device Foreign Exchange Student Coordinator - [employer]. Device Status Text - [id number]. Procedures Procedure Name Priority Date/Time Associated Comments Diagnosis (TTE) 2D ECHO Routine 04/05/2022 3:55 Effusion Results for DOPPLER COLOR PM CDT Pericardial Acute this proc edure ([facility]) are in the results section. ECG Routine 04/05/2022 2:01 Effusion Results for PM CDT Pericardial Acute this proce dure ([facility]) are in the results section. HOLTER MONITOR - IN Routine 04/05/2022 6:00 Effusion Resul ts for CLINIC AUTO SERVICE DISPATCHER AM CDT Pericardial Acute this pro cedure ([facility]) are in the Chronic Systolic results (Congestive) Heart section. Failure (HCC) Atrial Fibrillation Paroxysmal (HCC) Bundle Branch Block Left Dialysis Peritoneal Status (HCC) SEDIMENTATION RATE, Routine 04/04/2022 Effusion Results for B 11:36 AM CDT Pericardial Acute this proce dure (HCC) are in the Chronic Systolic results (Congestive) Heart section. Failure (HCC) Atrial Fibrillation Paroxysmal (HCC) Bundle Branch Block Left Dialysis Peritoneal Status (HCC) CBC WITH Routine 04/04/2022 Effusion Results for DIFFERENTIAL, B 11:36 AM CDT Pericardial Acute this pr ocedure (HCC) are in the Chronic Systolic results (Congestive) Heart section. Failure (HCC) Atrial Fibrillation Paroxysmal (HCC) Bundle Branch Block Left Dialysis Peritoneal Status (HCC) C-REACTIVE PROTEIN Routine 04/04/2022 Effusion Results f or (CRP), S/P 11:35 AM CDT Pericardial Acute this proce dure (HCC) are in the Chronic Systolic results (Congestive) Heart section. Failure (HCC) Atrial Fibrillation Paroxysmal (HCC) Bundle Branch Block Left Dialysis Peritoneal Status ([facility]) NT-PRO B-TYPE Routine 04/04/2022 Effusion Results [...] outpatients) results section. from Last 3 Months Results (TTE) 2D ECHO DOPPLER COLOR (04/05/2022 3:55 PM CDT) [facility] Method Time Signature Ejection Fraction 66 MC [...] was performed but not reported based on workforce consultant's judgment. No regional wall motion abnormalities. Abnormal [...] For the complete report, see the [facility] Documents. Narrative 04/07/2022 11:43 AM CDT For [...] 04/07/2022 For the complete report, see the [facility] Documents. Final Impressions 1. Normal left ventricular [...] Signature Ventricular Rate 62 BPM MUSE ECG/Min SC Interval 206 ms MUSE QRSD Interval 128 ms MUSE QT Interval 446 ms MUSE QTC Interval 452 ms MUSE P [place] 10 degrees MUSE R [place] 6 degrees MUSE T Wave [place] 26 degrees MUSE Specimen Anatomical Collection Method [...] MUSE NA HOLTER MONITOR - IN CLINIC AUTO SERVICE DISPATCHER (04/05/2022 6:00 AM CDT) P athologist Signature [...] Duration 6h 30m duration INFOBIONIC MOME AF [place] 29 percent INFOBIONIC MOME Longest AF 7h [...] seen singly at and around these times. Beveling Machine Operator: Marilou Zimmer / Violet Cotton Fellow: Clemente [...] seen singly at and around these times. Beveling Machine Operator: Marilou Zimmer / Violet Cotton Fellow: Clemente Dos Santos MD Mehrdad Lazcano APRN, C.N.P. CV CARDIAC SERVICES PRO CEDURES Performing Organization Address City/State/ZIP Code Phon e Number INFOBIONIC MOME INFOBIONIC MOME NA (ABNORMAL) Sedimentation Rate (04/04/2022 11:36 AM CDT) [facility] Method Time Signature Sedimentation 61 (H) 3 - 28 04/04/2022 DTL Rate, B mm/h 12:50 PM CDT Specimen Anatomical Collection Method Collection Time Receive d Time (Source) Location / / Volume Laterality Blood (Blood, 04/04/2022 11:36 04/04/2022 Venous) AM CDT 11:56 AM CDT Mehrdad Lazcano APRN, C.N.P. LAB BLOOD ADD-ON Performing Organization Address City/[facility] Code Phon e Number [facility] - [address] [place] [address] [facility] [place] [address] Laboratories-[facility] 200 [facility] (ABNORMAL) CBC with Differential, Blood (04/04/2022 11:36 AM CDT) [facility] Method Time Signature Hemoglobin 11.7 (L) 13.2 [...] Organization Address City/State/ZIP Code Phon e Number [facility] - [address] [place], [place] [address] [facility] [place] [place] [address] [facility] [address] [facility] (ABNORMAL) NT-Pro B-Type Natriuretic Peptide (BNP) (04/04/2022 [...] C.N.P. LAB BLOOD ADD-ON Performing Organization Address City/[facility] Phon e Number [facility] - [address] [place] [address] (ABNORMAL) CRP (C-Reactive Protein) (04/04/2022 11:35 AM CDT) P athologist Signature C-Reactive 16.2 (H) <=8.0 mg/L 04/04/2022 DTL Protein (CRP), 1:55 PM CDT S Specimen Anatomical Collection Method Collection Time Receive d Time (Source) Location / / Volume Laterality Blood (Blood, 04/04/2022 11:35 04/04/2022 Venous) AM CDT 12:06 PM CDT Mehrdad Lazcano APRN, C.N.P. LAB BLOOD ADD-ON Performing Organization Address City/[facility] Phon e Number [facility] - [address] [address] [address] (ABNORMAL) Comprehensive Metabolic Panel (04/04/2022 11:35 [...] 04/04/2022 DTL Black/ mL/min/BSA 1:48 PM CDT Brazilian Comment: ----ADDITIONAL INFORMATION---- Estimated GFR calculated using [...] Organization Address City/State/ZIP Code Phon e Number [facility] - [address] [place], [place] [address] [facility] [place] [address] Laboratories-[facility] [address] Chest without IV [...] Phone Address Typ e / Group Dates [employer] MEDICARE [id number] 2018-Pres [phone] PPO COMPLETE ent [phone] [place] [address] FOR LIFE FOR [id number] 2018-Pre [phone] [address] Indemnity LIFE sent [phone] [place] [address] Advance Directives For more information, please contact: [phone] Latest Code Status on File Code Status Date Activated Date Inactivated Comments Full Code 12/09/2021 5:10 PM 12/11/2021 2:46 PM Full Code: Discussed Full Code 2021 1:00 AM 12/08/2021 4:13 PM Full Code: Discussed
--- OUTSIDE RECORDS SUMMARY | 2022-04-13 21:44 | XMS_ITS | Encounter Summary ---
:[address] [facility] Address [address] [place] [address] Support Name Relationship Address Phone SHAYY CARMONA Unavailable [address] [place] [address] SHAYY CARMONA Unavailable [address] [place] [address] Insurance Providers: All historical and current Section [...] MEDICARE MEDICARE PART Nov 19, PART A [id number] 800 MATHEW,T P ATIENT (WNR) (M) A 2006 97A [phone] [place] MEDICARE MEDICARE PART Nov 19, PART B [id number] 800 MATHEW,T P ATIENT (WNR) (M) B 2006 [id number] [phone] [place] Selected Encounter This section includes the information on record at [place] for the Encounter. Date/Time Encounter Type Encounter Reason Provider Source Description Dec 03, 2021 11:02 Outpatient ADMIN PAT ACTIVPAUL THURMAN AM Encounter (MASNONCT) IHE Encounter Template Text not used by HI Plan of Treatment: Future Appointments (+ 6 months) and Future Tests (+/- 45 days) The Plan of Treatment section includes future care activities for the patient from all [place] treatmentfacilities. This section includes future appointments and future orders which are active, pending orscheduled.Future Appointments This section includes appointments that were scheduled to occur 6 months from the date of the Encounter, up to a maximum of 20 appointments. The data comes from all [place] treatment facilities. Appointment Date/Time Appointment Type Appointment Facili ty Name Dec 10, 2021 07:47 PM AMBULATORY - NONE [facility] Feb 10, 2022 05:44 PM AMBULATORY - NONE [facility] May 30, 2022 02:00 PM AMBULATORY - NONE [facility] Encounter Notes: All associated encounter notes This section contains the clinical notes associated to the Encounter. Date/Time Encounter Note(s) Provider Source 2021 03:52 PM NONVA NOTE: SÁNCHEZ REYES [facility] LOCAL TITLE: COMMUNITY CARE-GRIS SELF PRESENTIN G CARE COORD PLAN STANDARD TITLE: NONVA NOTE DATE OF NOTE: 2021@15:52 ENTRY DATE: DEC 13, 2021@15:52:44 AUTHOR: SÁNCHEZ REYES EXP COSIGNER: URGENCY: STATUS: COMPLETED COMMUNITY CARE-GRIS SELF PRESENTING CARE CO ORD PLAN NOTE Has ADDENDA Emergency Notification Intake Date Presenting to the Facility: Nov Date of note has been modified to reflect Date o f Service. Reason for modification: Y Method of Contact: Phone Centralized Call Center Notified [facility] Name: Hospital: [facility] Address: City: [place] State: [place] Zip Code: Phone : [facility] Point of Contact: Name: Phone: Chief complaint: pleural empyema Primary Diagnosis: Disposition Admitted Route of Admission: Direct Admit Date of Admission: Nov Admitting Diagnosis: Pleural Empyema Community Care Provider: Confirm Level of Care: heidi/ SÁNCHEZ REYES RN [facility] UTILIZATION MANAGEMENT Signed: 12/13/2021 15:56 12/13/2021 ADDENDUM STATUS: COMPLETED DISCHARGE NOTE CLINICAL CARE COORDINATION INFORMATION Hospital Name: 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 Pulmonary M edicine Discharge Disposition: Home Information obtained from hospital records in [facility] under Community Health Summaries and Documents sent to [facility] to be scann ed into [facility] electronic medical record in [facility] under Documents. Please review records when imported for any n eeded follow up and place appropriate specialty consults. /paola/ SÁNCHEZ REYES RN [facility] UTILIZATION MANAGEMENT Signed: 12/13/2021 16:01 12/13/2021 ADDENDUM STATUS: COMPLETED Requested eligibility to mail a packet of inform ation to regarding VA benefits. /tahira REYES RN [facility] UTILIZATION MANAGEMENT Signed: 12/13/2021 16:02 12/14/2021 ADDENDUM STATUS: COMPLETED NOTIFICATION ID: [id number] STATUS: Notify - Approved for 1703 /paola/ JEANIE BELLA BUSINESS PROCESS REPRESENTATIVE Signed: 12/14/2021 16:25 Dec 01, 2021 11:02 AM NONVA NOTE: HARPER LOONEY S [facility] LOCAL TITLE: COMMUNITY CARE-GRIS SELF PRESENTIN G CARE COORD PLAN STANDARD TITLE: NONVA NOTE DATE OF NOTE: DEC 01, 2021@11:02 ENTRY DATE: DEC 03, 2021@11:03:03 AUTHOR: HARPER LOONEY EXP COSIGNER: URGENCY: STATUS: COMPLETED COMMUNITY CARE-GRIS SELF PRESENTING CARE CO ORD PLAN NOTE Has ADDENDA Emergency Notification Intake Date Presenting to the Facility: Nov Method of Contact: Notified from [employer] Receipts worklist Notification ID: [id number] [facility] Referral #: [facility] Name: Hospital: [facility] Address: [address] City: [place] State: [place] Zip Code: Phone : [facility] Point of Contact: Name: JIGNESH WORRELL Chief complaint: CHEST PAIN Primary Diagnosis: Disposition Discharged Date of discharge: Nov Discharge to home /tahira LOONEY ADMISSION Signed: 12/03/2021 11:05 Receipt Acknowledged By: 12/06/2021 12:52 /paola/ PAUL CHRISTLE RN Utilization Management 12/06/2021 ADDENDUM STATUS: COMPLETED Faxed for records. /paola/ PAUL CASON RN Utilization Management Signed: 12/06/2021 12:55 12/06/2021 ADDENDUM STATUS: COMPLETED No PACT listed in J[facility]. Will send email for packet request to [place] to : /paola/ PAUL CASON RN Utilization Management Signed: 12/06/2021 12:58 12/09/2021 ADDENDUM STATUS: COMPLETED ER [place] 12/01/21 syncope Per note accepted and transferrd to [place], does not state which [facility] Information obtained from facility via f ax and sent to [facility] to be scanned into [facility] electronic medical record in [facility] under Documents. /paola/ PAUL CASON RN Utilization Management Signed: 12/09/2021 11:07 Receipt Acknowledged By: * AWAITING SIGNATURE * SÁNCHEZ REEYS
--- OUTSIDE RECORDS SUMMARY | 2022-04-13 21:44 | XMS_ITS | Encounter Summary ---
:[address] [facility] Address [address] [place] [address] Support Name Relationship Address Phone SHAYY CARMONA Unavailable [address] [place] [address] SHAYY CARMONA Unavailable [address] [place] [address] Insurance Providers: All historical and current Section [...] MEDICARE MEDICARE PART Nov 19, PART A [id number] 800 Sandhya CARMONA (WNR) (M) A 2006 97A [phone] [place] MEDIC[place] MEDICARE PART Nov 19, PART B [id number] 800 Sandhya CARMONA (WNR) (M) B 2006 97A [phone] [place] Selected Encounter This section includes the information on record at [place] for the Encounter. Date/Time Encounter Type Encounter Description Reason Provider Source Feb 28, 2022 08:38 Outpatient Encounter TELEPHONE/MEDICINE AM IHE Encounter Template Text not used by [place] Plan of Treatment: Future Appointments (+ 6 months) and Future Tests (+/- 45 days) The Plan of Treatment section includes future care activities for the patient from all [place] treatmentfacilities. This section includes future appointments and future orders which are active, pending orscheduled.Future Appointments This section includes appointments that were scheduled to occur 6 months from the date of the Encounter, up to a maximum of 20 appointments. The data comes from all [place] treatment facilities. Appointment Date/Time Appointment Type Appointment Facili ty Name May 30, 2022 02:00 PM AMBULATORY - NONE [facility] Active, Pending, and Scheduled Orders This section includes a listing of several types of active, pending, and scheduled orders, including clinic medications orders, diagnostic test orders, procedure orders and consult orders; where the start date of the order is 45 days before the date of the Encounter or 45 days after the date of the Encounter. The data comes from all [place] treatment facilities. Test Date/Time Test Type Test Details Facility Name Feb 25, 2022 04:52 PM Consult Order COMMUNITY CARE-PRIMARY CAR E [facility] Cons Software Licensing Analyst's Choice Encounter Notes: All associated encounter notes This section contains the clinical notes associated to the Encounter. Date/Time Encounter Note(s) Provider Source Feb 28, 2022 08:38 AM PRIMARY CARE NOTE: [facility] LOCAL TITLE: PC REFERRAL TEAM NOTE STANDARD TITLE: PRIMARY CARE NOTE DATE OF NOTE: FEB 28, 2022@08:38 ENTRY DATE: FEB 28, 2022@08:39:01 AUTHOR: KAMILLA FOSTER EXP COSIGNER: URGENCY: STATUS: COMPLETED PC REFERRAL TEAM NOTE Has ADDENDA Drive time from home address to nearest [place] clinic: [address] [facility] per [facility] advised on the following: Authorization will 36 5 days after the first initial appointment with the non-VA Primary Care provider. One month prior to the consult expiration, if [place] wishes to be considered for exte nsion of non-VA care, [place] needs to contact their non-VA provider to fax a renewal r equest to the Community Care Department. If the non-VA provider reque sts equipment or refers [place] to another provider, the VA must be notified prior to this equipment being issued or the [place] attending any other non-VA appointments. will stay assigned to their [facility] Provider, if established. If prefers to receiv e medications from VA, they will need to be written by the non-VA provider and faxed to the VA pharm acy at [phone]. If a medication is needed urgently, provide t he non-VA pharmacy with the following: RxBIN: [id number] - RxPCN: VA - RxGrp: HAC. Anticoagulants will be managed by the non-VA pro vider. If currently enrolled with the [place] anti-coagulation clinic, the will be unenrolled. It will be the responsibility of the non-VA provider to shanika ck Veterans labs and dose [place] accordingly. [place] provided with [employer] rolling machine tender RN ca se managers name and direct phone number. Instructed to cont act the employment case manager for any questions related to non-VA care, especially if care to an other specialist has been recommended and they are unclear if these servic es have been pre-authorized. Instructed the [place] of [facility] notification process and provided with phone number, , to call within 72 hours of presenting to an outside facility for emergency care or hospitali zation. Care team members being alerted: [facility] Provider: Dr. Escamilla [facility] Community manager transplant : Daniel Costa for case management and tracking purposes [place] verbalized understanding of abov e instructions and a letter with above instructions was mailed to . /paola/ KAMILLA FOSTER RN Referral Coordination Information Lead Signed: 02/28/2022 09:13 Receipt Acknowledged By: 02/28/2022 12:09 /es/ ZAYDA ESCAMILLA MD STAFF PHYSICIAN 03/03/2022 15:23 /es/ Daniel Costa, RN, BSN senior applications analyst Auto Mechanic Supervisor 03/03/2022 ADDENDUM STATUS: COMPLETED is well-insured via other source s but wanted to establish primary care through the VA. He is on hem odialysis at [facility] and gets his specialty care there. He is aware that the VA cannot appro ve any care at that [place] location. He lives within 60 minutes of the [facility] and there is no hardship consult in place. /paola/ Daniel Costa, RN, BSN senior applications analyst Auto Mechanic Supervisor Signed: 03/03/2022 15:26
--- OUTSIDE RECORDS SUMMARY | 2022-04-13 21:44 | XMS_ITS | Encounter Summary ---
:1940 Author Organization [facility] Address [address] [place] [address] Care Team Providers Name Role Phone Unavailable Primary Care Provider Unavailable Encounter Details Date Type Department Care Team Description 04/04/2022 Hospital Encounter Department of Mehrdad Lazcano Pericardial Acute (HCC); Laboratory Medicine M, IRON CARRIER, C.N .P. 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 Education Answer Date Recorded What [...] and 0 01/07/2019 tablet 2 mg on ///Sat. documented as of this encounter Plan of Treatment Upcoming Encounters Date Type Specialty Care Team Description 04/15/2022 Comprehensive Visit Cardiovascular Disease Kayla Heredia M.D. [address] [place] [address] (Wo rk) documented as of this encounter Procedures Procedure Name Priority Date/Time Associated Diagnosis Comme nts SEDIMENTATION RATE, B Routine 04/04/2022 11:36 Effusion Perica rdial Results for this AM CDT Acute (HCC) procedure are in Chronic Systolic the results (Congestive) Heart section. Failure (HCC) Atrial Fibrillation Paroxysmal (HCC) Bundle Branch Block Left Dialysis Peritoneal Status (HCC) CBC WITH DIFFERENTIAL, Routine 04/04/2022 11:36 Effusion Peric ardial Results for this B AM CDT Acute (HCC) procedure are in Chronic Systolic the results (Congestive) Heart section. Failure (HCC) Atrial Fibrillation Paroxysmal (HCC) Bundle Branch Block Left Dialysis Peritoneal Status (HCC) NT-PRO B-TYPE Routine 04/04/2022 11:35 Effusion Pericardial Re sults for this NATRIURETIC PEPTIDE AM CDT Acute (HCC) procedure are in (BNP), S Chronic Systolic the results (Congestive) Heart section. Failure (HCC) Atrial Fibrillation Paroxysmal (HCC) Bundle Branch Block Left Dialysis Peritoneal Status (HCC) C-REACTIVE PROTEIN Routine 04/04/2022 11:35 Effusion Pericardi al Results for this (CRP), S/P AM CDT Acute (HCC) procedure are in Chronic Systolic the results (Congestive) Heart section. Failure (HCC) Atrial Fibrillation Paroxysmal (HCC) Bundle Branch Block Left Dialysis Peritoneal Status (HCC) COMPREHENSIVE Routine 04/04/2022 11:35 Effusion Pericardial Re sults for this METABOLIC PANEL, S/P AM CDT Acute (HCC) procedure are in Chronic Systolic the results (Congestive) Heart section. Failure (HCC) Atrial Fibrillation Paroxysmal (HCC) Bundle Branch Block Left Dialysis Peritoneal Status (HCC) documented in this encounter Results (ABNORMAL) Sedimentation Rate (04/04/2022 11:36 AM CDT) [facility] Method Time Signature Sedimentation 61 (H) 3 - 28 04/04/2022 DTL Rate, B mm/h 12:50 PM CDT Specimen Anatomical Collection Method Collection Time Receive d Time (Source) Location / / Volume Laterality Blood (Blood, 04/04/2022 11:36 04/04/2022 Venous) AM CDT 11:56 AM CDT Mehrdad Lazcano APRN, C.N.P. LAB BLOOD ADD-ON Performing Organization Address City/State/ZIP Code Phon e Number [facility] - [address] [place], [place] [address] [facility] [place] [address] Laboratories-[facility] [address] (ABNORMAL) CBC with Differential, Blood (04/04/2022 11:36 AM CDT) [facility] Method Time Signature Hemoglobin 11.7 (L) [...] City/State/ZIP Code Phon e Number [facility] - [address] (ABNORMAL) CRP (C-Reactive Protein) (04/04/2022 11:35 AM CDT) P athologist Signature C-Reactive 16.2 (H) <=8.0 mg/L 04/04/2022 DTL Protein (CRP), 1:55 PM CDT S Specimen Anatomical Collection Method Collection Time Receive d Time (Source) Location / / Volume Laterality Blood (Blood, 04/04/2022 11:35 04/04/2022 Venous) AM CDT 12:06 PM CDT Mehrdad Lazcano APRN, C.N.P. LAB BLOOD ADD-ON Performing Organization Address City/[facility] Phon e Number [facility] - [address] (ABNORMAL) NT-Pro B-Type Natriuretic Peptide (BNP) (04/04/2022 11:35 AM CDT) athologist Signature NT-Pro BNP 2314 (H) <=540 [...] C.N.P. LAB BLOOD ADD-ON Performing Organization Address City/[facility] Phon e Number [facility] - [address] [place] [phone] [facility] [address] (ABNORMAL) Comprehensive Metabolic Panel (04/04/2022 11:35 AM [...] 04/04/2022 DTL Black/ mL/min/BSA 1:48 PM CDT Venezuelan Comment: ----ADDITIONAL INFORMATION---- Estimated GFR calculated using [...] City/State/ZIP Code Phon e Number [facility] - [address] [place], [place] [address] [facility] [place] [address] Laboratories-[facility] [address] documented in this encounter Visit Diagnoses Diagnosis Effusion Pericardial Acute (HCC) 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
--- OUTSIDE RECORDS SUMMARY | 2022-04-13 21:45 | XMS_ITS | Encounter Summary ---
:1940 Author Organization [facility] Address [address] [place] [address] Care Team Providers Name Role Phone Unavailable Primary Care Provider Unavailable Reason for Referral Outpatient (Routine) - Closed Specialty Diagnoses / Procedures Referred By Contact Refer red To Contact Pulmonary Medicine Peng Tinajero M.D. [address] [address] Referral ID Status Reason Start Date Expiration Date Visits Requ ested Visits Authorized [id number] Closed 12/28/2021 12/28/2022 1 1 Scheduling Instructions F/U pleural clinic. I am happy to see bu t if this doesn't work out he can be seen in pleural clinic. Reason for Visit Outpatient (Routine) - Closed Specialty Diagnoses / Procedures Referred By Contact Refer red To Contact Pulmonary Medicine Peng Tniajero M.D. [address] [address] Referral ID Status Reason Start Date Expiration Date Visits Requ ested Visits Authorized [id number] Closed 12/28/2021 12/28/2022 1 1 Encounter Details Date Type Department Care Team Description 03/02/2022 Hospital Encounter Division of Jessa Heredia Pleural Pulmonary Medicine Trinh Mendes (Primary Dx) in [address] [place] [id number] [place], [place] [phone] (Work) [phone] Social History Tobacco Use Types Packs/Day Years [...] or relatives? How often do you attend congregation or adventist More than 4 time s per year 04/11/2022 services? Do you belong to any clubs or organizations Yes 04/11/2022 such as congregation groups, unions, fraternal or athletic groups, or [...] place to sleep or slept in a snf (including now)? Education Answer Date Recorded What is the highest level of school you have completed or 12 th grade 02/14/2019 the highest degree you have received? Sex Assigned at Date Recorded Male 04/11/2022 12:05 PM CDT documented as of this encounter Last Filed [...] Cardiovascular Disease Kayla Heredia M.D. [address] [place] [address] (Wo rk) Scheduled Referrals Name Type Priority Associated Order Schedule Diagnoses Pulmonary Medicine Outpatient Referral Routine On ce for 1 office visit Occurrences sta rting (clinic) 03/02/2022 unti l 03/02/2022 documented as of this encounter Visit Diagnoses Diagnosis Effusion Pleural - Primary documented in this encounter
--- OUTSIDE RECORDS SUMMARY | 2022-04-13 21:45 | XMS_ITS | Encounter Summary ---
:1940 Author Organization [facility] Address [address] [place] [address] Care Team Providers Name Role Phone Unavailable Primary Care Provider Unavailable Reason for Referral Outpatient (Routine) - Authorized Specialty Diagnoses / Procedures Referred By Contact Refer red To Contact Diagnoses Effusion Pericardial Acute (HCC) Chronic Systolic (Congestive) Heart Failure (HCC) Atrial Fibrillation Paroxysmal (HCC) Bundle Branch Block Left Dialysis Peritoneal Status (HCC) Mehrdad Lazcano APRN, [facility] Procedures ECG Heart rhythm monitor (Holter) C.N.P. [address] [place] [address] Referral ID Status Reason Start Date Expiration Date Visits V isits Requested Authorized [id number] Authorized 03/08/2022 03/08/2023 1 1 Reason for Visit Reason Comments Triage Encounter Details Date Type Department Care Team Description 03/02/2022 Clinical Communication Department of Asset Protection Professional, [facility] Cardiovascular Medicine Trinh Alcaraz in [facility] rotary peel oven tender [address] [place] [phone] Social History Tobacco Use Types Packs/Day [...] or relatives? How often do you attend adventism or adventism More than 4 time s per year 04/11/2022 services? Do you belong to any clubs or organizations Yes 04/11/2022 such as adventism groups, unions, fraCurtis Berryman [employer] Son Cremation or athletic groups, or school groups? How [...] place to sleep or slept in a penitentiary (including now)? Education Answer Date Recorded What is the highest level of school you have completed or 12 th grade 02/14/2019 the highest degree you have received? Sex Assigned at Date Recorded Male 04/11/2022 12:05 PM CDT documented as of this encounter Miscellaneous Notes [...] Visit Cardiovascular Disease Kayla Heredia M.D. [address] [place] [phone] (Wo rk) documented as of this encounter Results HOLTER MONITOR - IN CLINIC HAND BUFFER (04/05/2022 6:00 AM CDT) P athologist Signature [...] Duration 6h 30m duration INFOBIONIC MOME AF [place] 29 percent INFOBIONIC MOME Longest AF 7h [...] seen singly at and around these times. Cinder Crew Worker: Marilou Zimmer / Violet Cotton Fellow: Clemente [...] seen singly at and around these times. Cinder Crew Worker: Marilou Zimmer / Violet Cotton Fellow: Clemente Dos Santos MD Mehrdad Lazcano APRN, C.N.P. CV CARDIAC SERVICES PRO CEDURES Performing Organization Address City/State/ZIP Code Phon e Number INFOBION[facility] M[facility] INFO[facility]ION[facility] [place] NA (ABNORMAL) Sedimentation Rate (04/04/2022 11:36 AM CDT) [facility] [employer]now [employer]) Method Time Signature Sedimentation 61 (H) 3 - 28 04/04/2022 DTL Rate, B mm/h 12:50 PM CDT Specimen Anatomical Collection Method Collection Time Receive d Time (Source) Location / / Volume Laterality Blood (Blood, 04/04/2022 11:36 04/04/2022 Venous) AM CDT 11:56 AM CDT Mehrdad Lazcano APRN, C.N.P. LAB BLOOD ADD-ON Performing Organization Address City/[facility]/ZIP Code Phon e Number [facility] - [address] [place], [place] [address] [facility] [place] [address] Laboratories-[facility] 200 [facility] (ABNORMAL) CBC with Differential, Blood (04/04/2022 11:36 AM CDT) [facility] [employer]) Method Time Signature Hemoglobin 11.7 (L) 13.2 [...] Address City/State/ZIP Code Phon e Number [facility] - [address] [place], [place] [address] [facility] [place] [address] [address] (ABNORMAL) CRP (C-Reactive Protein) (04/04/2022 11:35 [...] Address City/State/ZIP Code Phon e Number [facility] - [address] [place], [place] [address] [facility] [place] [address] Laboratories[address] (ABNORMAL) NT-Pro B-Type Natriuretic Peptide (BNP) [...] AM CDT 12:06 PM CDT Mehrdad Lazcano APRN C.N.P. LAB BLOOD ADD-ON Performing Organization Address City/State/ZIP Code Phon e Number [facility] - [address] [address] [address] (ABNORMAL) Comprehensive Metabolic Panel (04/04/2022 11:35 [...] 04/04/2022 DTL Black/ mL/min/BSA 1:48 PM CDT [place] Citizen Comment: ----ADDITIONAL INFORMATION---- Estimated GFR calculated using [...] Address City/State/ZIP Code Phon e Number [facility] - [address] [place], [place] [address] [facility] [place] [address] Laboratories-[facility] [address] documented in this encounter Visit Diagnoses Diagnosis 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) - Primary Effusion Pericardial Acute (HCC) Atrial Fibrillation Paroxysmal (HCC) Bundle Branch Block Left Dialysis Peritoneal Status (HCC) Effusion Pericardial Acute (HCC) 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
--- OUTSIDE RECORDS SUMMARY | 2022-04-13 21:45 | XMS_ITS | Encounter Summary ---
:1940 Author Organization [facility] Address [address] [place] [address] Care Team Providers Name Role Phone Unavailable Primary Care Provider Unavailable Reason for Referral Outpatient (Routine) - Closed Specialty Diagnoses / Procedures Referred By Contact Refer red To Contact Diagnoses Effusion Pericardial Acute (HCC) Jessa Heredia M.D. [facility] Procedures Echo Transthoracic (TTE) [address] [place] [address] Referral ID Status Reason Start Date Expiration Date Visits Requ ested Visits Authorized [id number] Closed 03/02/2022 03/02/2023 1 1 Outpatient (Routine) - Closed Specialty Diagnoses / Procedures Referred By Contact Refer red To Contact Diagnoses Effusion Pericardial Acute (HCC) Jessa Heredia M.D. [facility] Procedures ECG 12 Lead [address] [place] [phone] Referral ID Status Reason Start Date Expiration Date Visits Requ ested Visits Authorized [id number] Closed 03/02/2022 03/02/2023 1 1 Outpatient (Routine) - Authorized Specialty Diagnoses / Procedures Referred By Contact Refer red To Contact Cardiovascular Diseases / Diagnoses Effusion Pericardial Acute (HCC) Jessa Heredia [facility] Cardiovascular Disease MCodie [address] [place] [address] Referral ID Status Reason Start Date Expiration Date Visits V isits Requested Authorized [id number] Authorized 03/02/2022 03/02/2023 1 1 Encounter Details Date Type Department Care Team Description 03/02/2022 Orders Only Division of Pulmonary Jessa Heredia, Effusion Pericardial Medicine in [facility] Acute (HCC) (Primary [place], [place] [address]) [address] [place] [phone] Social History Tobacco Use Types Packs/Day Years [...] How often do you attend yazidi or orthodox More than 4 time s per year 04/11/2022 services? Do you belong to any clubs or organizations Yes 04/11/2022 such as yazidi groups, unions, fraternal or [...] do you engage in exercise at is 90 min 04/11/2022 level? Stress Answer [...] place to sleep or slept in a skilled nursing (including now)? Education Answer Date Recorded What [...] Disease Kayla Heredia M.D. [address] [place] [address] (Wo rk) Scheduled Referrals Name Type Priority Associated Order Schedule Diagnoses Cardiovascular Disease Outpatient Routine Effusion Expec herminia: - General cardiology Referral Pericardial Acute [facility] (Approximat e), Expires: 06/02/2023 documented as of this encounter Results (TTE) 2D ECHO DOPPLER COLOR (04/05/2022 3:55 PM CDT) [facility] [place] Method Time Signature Ejection Fraction 66 MC [...] was performed but not reported based on motor pool clerk's judgment. No regional wall motion abnormalities. Abnormal [...] complete report, see the Order-L evel Documents. Narrative 04/07/2022 11:43 AM CDT For [...] 04/07/2022 For the complete report, see the Order-L evel Documents. Final Impressions 1. Normal left ventricular [...] Signature Ventricular Rate 62 BPM MUSE ECG/Min ND Interval 206 ms MUSE QRSD Interval 128 ms MUSE QT Interval 446 ms MUSE QTC Interval 452 ms MUSE P [place] 10 degrees MUSE R [place] 6 degrees MUSE T Wave [place] 26 degrees MUSE Specimen Anatomical Collection Method Collection Time Receive d Time (Source) Location / / Volume Laterality 04/05/2022 2:01 PM 2 2:08 CDT PM CDT Impressions MUSE - [...] Code Phon e Number MUSE MUSE NA documented in this encounter Visit Diagnoses Diagnosis Effusion Pericardial Acute (HCC) - Prima ry Effusion Pericardial Acute (HCC) documented in this encounter
--- OUTSIDE RECORDS SUMMARY | 2022-04-13 21:45 | XMS_ITS | Encounter Summary ---
:1940 Author Organization [facility] Address [address] [place] [address] Care Team Providers Name Role Phone Unavailable Primary Care Provider Unavailable Reason for Referral Outpatient (Routine) - Authorized Specialty Diagnoses / Procedures Referred By Contact Refer red To Contact Diagnoses Effusion Pericardial Acute (HCC) Chronic Systolic (Congestive) Heart Failure (HCC) Atrial Fibrillation Paroxysmal (HCC) Bundle Branch Block Left Dialysis Peritoneal Status (HCC) [facility] Procedures ECG Heart rhythm monitor (Holter) C.N.P. [address] [place] [address] Referral ID Status Reason Start Date Expiration Date Visits V isits Requested Authorized [id number] Authorized 03/08/2022 03/08/2023 1 1 Reason for Visit Outpatient (Routine) - Authorized Specialty Diagnoses / Procedures Referred By Contact Refer red To Contact Diagnoses Effusion Pericardial Acute (HCC) Chronic Systolic (Congestive) Heart Failure (HCC) Atrial Fibrillation Paroxysmal (HCC) Bundle Branch Block Left Dialysis Peritoneal Status (HCC) [facility] Procedures ECG Heart rhythm monitor (Holter) C.N.P. 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 Atrial Fibrillation Paroxysmal (HCC); [place] [address] Bundle Branch Block Left; [address] [place], [place] Dialysis Peritoneal Status ( HCC) [place] [phone] Social History Tobacco Use Types Packs/Day Years [...] How often do you attend protestant or religion More than 4 time s per year 04/11/2022 services? Do you belong to any clubs or organizations Yes 04/11/2022 such as protestant groups, unions, fraternal or [...] Cardiovascular Disease Kayla Heredia M.D. [address] [place] [address] (Wo rk) documented as of this encounter Procedures Procedure Name Priority Date/Time Associated Diagnosis Comme nts HOLTER MONITOR - IN Routine 04/05/2022 6:00 AM Effusion Perica rdial Results for this CLINIC CLINICAL QUALITY MANAGER CDT Acute (HCC) procedure are in Chronic Systolic the results (Congestive) Heart section. Failure (HCC) Atrial Fibrillation Paroxysmal (HCC) Bundle Branch Block Left Dialysis Peritoneal Status (HCC) documented in this encounter Results HOLTER MONITOR - IN CLINIC CLINICAL QUALITY MANAGER (04/05/2022 6:00 AM CDT) P athologist Signature [...] Duration 6h 30m duration INFOBIONIC MOME AF [place] 29 percent INFOBIONIC MOME Longest AF 7h [...] seen singly at and around these times. Resident Medical Officer: Marilou Zimmer / Violet Cotton Fellow: Clemente [...] seen singly at and around these times. Resident Medical Officer: Marilou Zimmer / Violet Cotton Fellow: Clemente Dos Santos MD Mehrdad Lazcano APRN, C.N.P. CV CARDIAC SERVICES PRO CEDURES Performing Organization Address City/State/ZIP Code Phon e Number INFOBION[facility] M[facility] INFOBIONIC MOME NA documented in this encounter Visit Diagnoses Diagnosis Effusion Pericardial Acute (HCC) 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
--- OUTSIDE RECORDS SUMMARY | 2022-04-13 21:45 | XMS_ITS | Encounter Summary ---
:1940 Author Organization [facility] Address [address] [place] [address] Care Team Providers Name Role Phone Unavailable [...] How often do you attend gnosticist or alevism More than 4 time s per year 04/11/2022 services? Do you belong to any clubs or organizations Yes 04/11/2022 such as gnosticist groups, unions, fraternal or [...] place to sleep or slept in a [facility] (including now)? Education Answer Date Recorded What is the highest level of school you have completed or 12 th grade 02/14/2019 the highest degree you have received? Sex Assigned at Date Recorded Male 04/11/2022 12:05 PM CDT documented as of this encounter Plan of Treatment Upcoming Encounters Date Type Specialty Care Team Description 04/15/2022 Comprehensive Visit Cardiovascular Disease Kayla Heredia M.D. [address] [place] [address] (Wo rk) documented as of this encounter [...]
--- OUTSIDE RECORDS SUMMARY | 2022-04-13 21:45 | XMS_ITS | Encounter Summary ---
:1940 Author Organization [facility] Address [address] [place] [address] Care Team Providers Name Role Phone Unavailable Primary Care Provider Unavailable Encounter Details Date Type Department Care Team Description 12/09/2021 Clinical Communication [facility], [facility] . [facility], [address] [place] [address] [place], [place] [address] [place] [address] [place], [place] [phone] (Work) [phone] Social History Tobacco Use Types Packs/Day Years [...] often do you attend oriental orthodox or gnosticist More than 4 time s per year 04/11/2022 services? Do you belong to any clubs or organizations Yes 04/11/2022 such as oriental orthodox groups, unions, fraternal [...] place to sleep or slept in a halfway (including now)? Education Answer Date Recorded What [...] Cardiovascular Disease Kayla Heredia M.D. [address] [place] [phone] (Wo rk) documented as of this encounter Visit Diagnoses Not on filedocumented in this encounter
--- OUTSIDE RECORDS SUMMARY | 2022-04-13 21:45 | XMS_ITS | Encounter Summary ---
:1940 Author Organization [facility] Address [address] [place] [address] Care Team Providers Name Role Phone Unavailable Primary Care Provider Unavailable Reason for Visit Auth/Cert Specialty Diagnoses / Procedures Referred By Contact Refer red To Contact Diagnoses Hematemesis Hematemesis on Coumadin Procedures DIR Referral ID Status Reason Start Date Expiration Date Visits Requ ested Visits Authorized [id number] 1 1 Encounter Details Date Type Department Care Team Description 12/09/2021 - Hospital Encounter [facility] Kong Coates M.D. [address] [place] [address] Hematemesis 12/11/2021 [facility] [address] [place] [address] (Primary Dx) [facility], Fourth Floor [address] [place] [phone] Social History Tobacco Use Types Packs/Day Years [...] or relatives? How often do you attend congregational or moravian More than 4 time s per year 04/11/2022 services? Do you belong to any clubs or organizations Yes 04/11/2022 such as congregational groups, unions, fraternal or athletic groups, or [...] care provider on file. Discharge Provider Team: [facility] ([facility]) RST Medicine 8 ([facility]) Primary Care Provider Phone Number: None Primary Care Provider Fax Number: None Other Providers: Nargis Goldstein APRN, C.N.P., M.S.N. 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 Pulmonary Medicine For appointment details refer to your Patient Appointment Guide. TEST RESULTS PENDING AT DISCHARGE Pending Labs None DETAILS OF HOSPITAL STAY REASON FOR ADMISSION Hematemesis HOSPITAL COURSE Mr. 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 Is very active. He has a [...] 1967, incl last a Heller's procedure at [facility] 11/2020. On 12/09, he presented via EMS to [facility] Emergency Department with concerns of weaknessand coffee ground emesis. Apparently EMS noted ice cream container worth of reddish vomit that they thought was blood. SBP was90s but improved to 120s with 1.5 L IVF. He was not transfused at the OSH ED as Hb was 12.2. He was given Kcentra (INR was 1.4) and 40 mg IV pantoprazole and directly admitted to [facility],Medicine 8 service for ongoing management. On the [...] Mr. David Castro today and provided counseling [id number] at bedside. I personally spent over half of a total 35 minutes in counseling and discussion with the patient and in coordination of care as described above to facilitate the hospital discharge. Discharge instructions were provided to the patient and caregiver(s). documented in this encounter Discharge Instructions Discharge InstructionsBernice Pisano - 12/10/2021 7:26 AM CDT You were discharged from the [facility] Medicine 8 ([facility]) Service. Please identify this service name if you call with questions after hospitalization. AppointmentsBernice Pisano - 12/10/2021 11:04 AM CDT Take a copy of this after visit summary to your appointment(s). DIVINA Van December 14, 2021 - Monday --10:05 AM - Hospital Follow-Up with Dr. Harish Silver, at [facility] Address: [address] [place] [address] DIVINA Van [id number] If you have any questions, concerns, or need to reschedule please call [phone] documented in this encounter Medications at Time of Discharge Medication Sig Dispensed Refills Start Date End Date omeprazole (PriLOSEC) Take 1 capsule ([address] mg [address] capsule total) by mouth 2 (two) times a day before breakfast and dinner. torsemide (DEMADEX) 20 Take 1 tablet (20 mg 0 mg tablet total) by mouth daily. warfarin (COUMADIN) 2 1 mg on //Mon and 0 mg tablet 2 mg on ///Mon. allopurinol (ZYLOPRIM) Take 100 mg by mouth 0 100 mg tablet daily. calcitRIOL (ROCALTROL) 1 capsule. 3 times 0 12/27 0.25 mcg capsule weekly metoprolol tartrate Take 25 mg by mouth 2 0 (LOPRESSOR) 25 mg (two) times a day. tablet multivitamin renal Take 1 tablet by mouth 30 tablet 0 12/08 failure (DIALYVITE) daily with dinner. 100-1 mg tablet amoxicillin-pot Take 1 tablet (500 mg 16 [...] about patient's nutritional care please contact pager [phone] on weekdays or [phone] on weekends/holidays. Nicole Mendez APRN, C.N.P., D.N.P. [...] 12/09 0000 12/09 2359 12/10 0000 12/10 2359 12/11 0000 12/11 2359 P.O. 180 450 300 Maintenance IV 1000 [...] has been staffed with Dr. Kennedy, Nephrology outside solar sales consultant. For questions or concerns, please contact Neph A ESRD pager at [phone]. Sherri Alarcon R.R.T., L.R.T. - 12/11/2021 1:41 AM CDT Pt assisted with home CPAP set-up. Pt declined nasal liquicell. States that he is independent with placement and does not require assistance. He knows that RT is a page away if he needs any help. Electronically signed by: Sherri Alarcon R.R.T., DuglasRJazmín 12/11/21 2:09 AM CDT Arti Lozoya M.D. - 12/10/2021 1:31 PM CDT I saw and evaluated Mr. David Castro on rounds today with our medicine team, and I agree with the findings and plan as documented in today's progress note by Maria G Adame PA-C, with the following comments: David Castro is a 81 y.o. male who was recently discharged from our [address] service following an admission for a [...] team's plan of care. Counseling was provided [id number] at bedside regarding the plan of care as stated above. I personally spent over half of a total 35 minutes in counseling and coordination of care as documented above. Kasia Ridley, D., R.Ph. - 12/10/2021 9:03 AM CDT Pharmacist Progress Note Reason for admission: multiple coffee ground emesis, transferred from OSH ED PMH: ESRD on peritoneal dialysis, achalasia, afib (warfairn), HTN, GERD, ELENI Last inpatient: 12/02-12/08 for treatment of empyema on pul svc OBJECTIVE Home medications: ?? Held: warfarin, PRN [...] pending hospital course Kasia Ridley PharmCodie, R.Ph. [phone] Maria G Adame P.A.-C., M.S. - 12/10/2021 7:10 AM CDT T Medicine 8 ([facility]) Progress Note SUBJECTIVE Interval history: Patient was [...] / PLAN Mr. Castro is hospitalized on [place] [address] ([facility]) for evaluation and management of Hematemesis. 81 year old male admitted for weakness and coffee-ground emesis. Recently discharged [facility] after 6day admission for right pleural [...] 1967, incl last a Heller's procedure at [facility] 11/2020), HTN, and ELENI on CPAP. EMS was called and he was taken to [facility] ED. Apparently EMS noted ice cream container worth of reddish vomit that they thought was blood. SBP was 90s but improved to 120s with 1.5 L IVF. He was not transfused at the OSH ED as Hb was 12.2. He was given Kcentra (INR was 1.4) and 40 mg IV pantoprazole and directly admitted to [facility]. #1 Weakness, generalized #2 Dark colored emesis [...] care was discussed with Dr. Lozoya, HIM outside solar sales consultant. Counseling was provided [id number] at bedside regarding the plan of care as stated above. I personally spent over half of a total 35 minutes in counseling and coordination of care as documented above. Maria G Adame P.A.-C., M.S. Medicine 1 - [phone] Addendum: EGD showed stasis ulcer, and brownish fluid that was mostly food debris, no evidence of bleed identified. Discharge with recommendations to continue oral PPI BID indefinitely, sucralfate BID times 14 days, head of bed at 45 degrees. Surya Sepulveda, R.R.T. - 12/09/2021 11:32 PM CDT Patient [...] Status Comment 12/09/2021 2:28 PM Per 12/[address] [facility] discharge AVS Taking? Last Dose Informant Start [...] and 2 mg on ///Mon. Matthew Giron Pharm.D., R.Ph. documented in this encounter H&P Notes Lorne Galloway M.B., Ch.B. - 12/09/2021 7:19 PM CDT [facility] Medicine 8 ([facility]) Admission Note SUBJECTIVE CHIEF COMPLAINT Coffee ground emesis x6 last night HISTORY OF PRESENT ILLNESS Mr. David Castro is a 81 y.o. male who was dismissed from [facility] only yesterday having been admitted [...] 1967, incl last a Heller's procedure at [facility] 11/2020), HTN, and ELENI on CPAP. He [...] called EMS and he was taken to [facility] ED. Apparently EMS did take note of [...] bleeds, the first he thinks was at [facility] perhaps 15 years ago and then [...] is not in the electronic chart. No extra-BRICKLAYER TENDER infectious source was found and he has had no further BRICKLAYER TENDER infection. -?LP done apparently here for low [...] Alkaline Phosphatase Anemia In Chronic Kidney Disease Prison (Current) Anticoagulant Treatment Hypertension And End Stage [...] he can only swallow soup. -NPO at NM in case of EGD in am. Tubes/lines: PIV x2 ordered. VTE prophylaxis: SCD only given bleeding. Code status: Full Code, discussed. Baseline Mobility: BMAT Level 4 (Able to stand and walk) Disposition: Home Counseling was provided [id number] at bedside regarding the plan of care [...] was reviewed with Dr. Kennedy, Nephrology A outside solar sales consultant For questions or concerns, please page the Nephrology A FINISHED YARN EXAMINER/PA pager ([phone]). Associated attestation - Yamileth Kennedy M.D., Ph.D. [...] documented in this encounter Nursing Notes Janeth Nicole R.N. - 12/11/2021 12:09 PM CDT Shift Goals: Clinical Goals for the Shift: pt will remain stable for d/c Identify possible barriers to meeting goals/advancing plan of care: none End of Shift Summary: Patient discharged to home/self care with providing transportation. Education on diet recommendations provided by claims account manager. VSS. Belongings sent with patient. Problem: [...] vomiting Outcome: Adequate for Discharge Randee Gandhi RBaileyN. - 12/11/2021 5:28 AM CDT Shift Goals: Clinical Goals for the Shift: Patient will get adequate rest and remain vitally stable. Identify possible barriers to meeting goals/advancing plan of care: anxiety End of Shift Summary: Patient had intermittent rest overnight with no emesis or nausea. VSS after EGD yesterday. Denies pain throughout shift. Ambulating in room stand by assist. Cecelia Winkler RBaileyN. - 12/10/2021 6:14 AM CDT Shift Goals: [...] Mr. 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 Is very active. He has a [...] 1967, incl last a Heller's procedure at [facility] 11/2020. On 12/09, he presented via EMS to [facility] Emergency Department with concerns of weaknessand coffee ground emesis. Apparently EMS noted ice cream container worth of reddish vomit that they thought was blood. SBP was90s but improved to 120s with 1.5 L IVF. He was not transfused at the OSH ED as Hb was 12.2. He was given Kcentra (INR was 1.4) and 40 mg IV pantoprazole and directly admitted to [facility],Medicine 8 service for ongoing management. On the [...] Cardiovascular Disease Kayla Heredia M.D. [address] [place] [address] (Wo rk) documented as of this encounter [...] Renal Function Panel (12/11/2021 7:30 AM CDT) Analysis Performed At Patho logist Time Signature Potassium, S 3.5 (L) 3.6 - 5.2 12/11/2021 DTL mmol/L 9:18 AM CDT Sodium, S 143 135 - 145 12/11/2021 DTL mmol/L 9:18 AM CDT Chloride, S 104 98 - 107 12/11/2021 DTL mmol/L 9:18 AM CDT Bicarbonate, S 29 22 - 29 12/11/2021 DTL mmol/L 9:18 AM CDT Anion Gap 10 7 - 15 12/11/2021 DTL 9:18 AM CDT BUN (Blood Urea 52 (H) 8 - 24 12/11/2021 DTL Nitrogen), S mg/dL 9:18 AM CDT Creatinine 3.84 (H) 0.74 - 12/11/2021 DTL 1.35 mg/dL 9:18 AM CDT eGFR-Non <15 (L) >=60 12/11/2021 DTL Black/ mL/min/BSA 9:18 AM CDT Scottish Comment: ----ADDITIONAL INFORMATION---- Estimated GFR calculated using [...] (Inorganic), S 3.2 2.5 - 4.5 mg/dL 12/12/19 9:18 AM CDT DTL Specimen Anatomical Collection Method Collection Time Receive d Time (Source) Location / / Volume Laterality Blood (Blood, 12/11/2021 7:30 AM 12/12/19 8:31 Venous) CDT AM CDT Maria G Adame P.A.-C., M.S. LAB BLOOD ADD-ON Performing Organization Address City/State/ZIP Code Phon e Number [facility] - [address] [place] [phone] [facility] [place] [address] [facility] 200 [facility] (ABNORMAL) CBC without Differential (12/11/2021 7:30 AM CDT) [facility] gist Method Time Signature Hemoglobin 8.8 (L) 13.2 [...] Laterality Blood (Blood, 12/11/2021 7:30 AM 12/12/19 8:21 Venous) CDT AM CDT Maria G Adame P.A.-C., M.S. LAB BLOOD ADD-ON Performing Organization Address [facility] Phon e Number [facility] - [address] (ABNORMAL) Hemoglobin (12/10/2021 4:17 PM CDT) athologist Signature Hemoglobin 10.7 (L) 13.2 - 16.6 12/10/2021 DTL g/dL 5:00 PM CDT Specimen Anatomical Collection Method Collection Time Receive d Time (Source) Location / / Volume Laterality Blood (Blood, 12/10/2021 4:17 PM 12/11/19 4:49 Venous) CDT PM CDT Maria G Adame P.A.-C., M.S. LAB BLOOD ADD-ON Performing Organization Address City/[facility] Phon e Number [facility] - [address] [place] [id number] [place] [address] Upper GI Endoscopy (12/10/2021 11:53 AM CDT) Specimen (Source) Anatomical Collection Method Collection Time Re ceived Time Location / / Volume Laterality 12/10/2021 11:53 AM CDT [facility]ressions [facility] - 12/10/2021 4:10 PM CDT Post-op [...] bulb. ? - No specimens collected. Narrative [employer] - 12/10/2021 4:10 PM CDT Saul [...] ? - Follow an antireflux regimen wi PO PPI 40 mg BID indefinitely and [...] was aspirated ? allowing adequate assessment of t belinda esophageal mucosa. From 40 to 35 cm [...] ? evidence or source of bleeding. T he fundus mucosa was inadequately ? visualized given [...] No immedia te complications. Sedation: ? General audio visual equipment rental clerk Participation: I was present a nd participated during the entire ? pro cedure, including non-coughlin portions. Toby Flannery MD 12/10/2021 3:22:32 PM This report has been signed electronical ly. Number of Addenda: 0 Lorne Sanchez, Ch.B. GI PROCEDURE ORDERABLES Performing Organization Address City/State/ZIP Code Phon e Number [facility] [employer] [employer] NA (ABNORMAL) Alkaline Phosphatase (12/10/2021 7:33 AM CDT) P athologist Signature Alkaline 229 (H) 40 - 129 12/10/2021 DTL Phosphatase, S U/L 1:14 PM CDT Specimen Anatomical Collection Method Collection Time Receive d Time (Source) Location / / Volume Laterality Blood (Blood, 12/10/2021 7:33 AM 12/11/19 Venous) CDT 12:43 PM CDT Maria G Adame P.A.-C., M.S. LAB BLOOD ADD-ON Performing Organization Address City/[facility] Code Phon e Number [facility] - [address] (ABNORMAL) GGT (Gamma-Glutamyltransferase) (12/10/2021 7:33 AM CDT) Component Value Ref Test Analysis Performed At Patholo gist Range Method Time Signature Gamma 121 (H) 8 - 61 12/10/2021 DTL Glutamyltransferase U/L 1:14 PM CDT (GGT), S Specimen Anatomical Collection Method Collection Time Receive d Time (Source) Location / / Volume Laterality Blood (Blood, 12/10/2021 7:33 AM 12/11/19 Venous) CDT 12:43 PM CDT Maria G Adame P.A.-C., M.S. LAB BLOOD ADD-ON Performing Organization Address City/[facility] Phon e Number [facility] - 200 [place], [place] [address] [place] [address] Phosphorus Inorganic (12/10/2021 7:33 AM CDT) P [...] [facility] - [address] (ABNORMAL) CBC without Differential (12/10/2021 7:33 AM CDT) Patholo gist Method Time Signature Hemoglobin 10.7 (L) 13.2 [...] Number [facility] - 200 [place], [place] [address] [facility] [place] [address] [facility] [address] (ABNORMAL) Basic Metabolic Panel (12/10/2021 7:33 AM CDT) Analysis Performed At Patho logist [...] 12/10/2021 DTL 8:31 AM CDT BUN (Blood Urea 49 (H) 8 - 24 12/10/2021 DTL Nitrogen), S mg/dL 8:31 AM CDT Creatinine 4.05 (H) 0.74 - 12/10/2021 DTL 1.35 mg/dL 8:31 AM CDT eGFR-Non <15 (L) >=60 12/10/2021 DTL Black/ mL/min/BSA 8:31 AM CDT Scottish Comment: ----ADDITIONAL INFORMATION---- Estimated GFR calculated using [...] e Number [facility] - [address] [place] [phone] [facility] [place] [address] [facility] 200 [facility] SARS Coronavirus 2, PCR Rapid, V (12/09/2021 7:48 PM CDT) [facility] Method Time Signature SARS CoV-2, Undetected Undetected 12/09/2021 STMA PCR, Rapid, V 8:26 PM CDT Comment: ----ADDITIONAL INFORMATION---- This RT-PCR test was performed using the Penny SARS-CoV-2 and Influenza A/B Reagent assay from [employer], which has received Emergency Use Authori zation(EUA) by the U.S. Food and Drug Administration . Fact sheets for this Emergency Use Autho rization (EUA) assay can be found at the following link s: For Healthcare Providers: https://www.fda.gov/media/879192/downloa d For Patients: https://www.fda.gov/media/888451/downloa d SARS Coronavirus 2, Source, Rapid Swab, Nasopharynx 12/09/2021 8:00 PM CDT STMA Specimen Anatomical Collection Method Collection Time Receive d Time (Source) Location / / Volume Laterality Varies 12/09/2021 7:48 PM 2 7:59 CDT PM CDT Marlyn Benson P.A.-C. LAB MICROBIOLOGY - GENERAL ORDERABLES Performing Organization Address City/State/ZIP Code Phon e Number [facility] - 200 [place], [place] [address] [place] [address] [facility] [address] [facility] ECG 12 Lead (12/09/2021 3:35 PM CDT) P athologist Signature Ventricular Rate 88 BPM MUSE ECG/Min QRSD Interval 124 ms MUSE QT Interval 398 ms MUSE QTC Interval 481 ms MUSE R [place] 0 degrees MUSE T Wave [place] -1 degrees MUSE Specimen Anatomical Collection Method Collection Time Receive d Time (Source) Location / / Volume Laterality 12/09/2021 3:35 PM 2 3:41 CDT PM CDT Impressions MUSE - [...] complexes are no longer present Reviewed by Abbey Blake, CRAT Lorne Sanchez, Ch.B. ECG ORDERABLES Performing Organization Address City/State/ZIP Code Phon e Number MUSE MUSE NA Type and Screen (with reflex Antibody ID) (12/09/2021 3:15 PM CDT) [facility] gist Method Time Signature ABORh O Pos Not 12/09/2021 STRM applicable 4:06 PM CDT Antibody Negative Negative 12/09/2021 STRM Screen 4:17 PM CDT Type & Screen 12/12/2021 12/09/2021 STRM Expiration 23:59 4:06 PM CDT Testing [place] DEFAULT 12/09/2021 STRM Location 3:24 PM CDT Specimen Anatomical Collection Method Collection Time Receive d Time (Source) Location / / Volume Laterality Blood (Blood, 12/09/2021 3:15 PM 12/10/19 3:24 Venous) CDT PM CDT Lorne Sanchez, Ch.B. LAB BLOOD BANK TEST ORDERABL ES Performing Organization Address City/State/ZIP Code Phon e Number [facility] - [address] [place], [place] [address] [facility] [place] [address] [facility] [address] (ABNORMAL) Basic Metabolic Panel (12/09/2021 3:14 PM CDT) Analysis Performed At Patho logist Time Signature Potassium, S 3.4 (L) 3.6 - [...] 12/09/2021 DTL 4:43 PM CDT BUN (Blood Urea 39 (H) 8 - 24 12/09/2021 DTL Nitrogen), S mg/dL 4:43 PM CDT Creatinine 3.98 (H) 0.74 - 12/09/2021 DTL 1.35 mg/dL 4:43 PM CDT eGFR-Non <15 (L) >=60 12/09/2021 DTL Black/ mL/min/BSA 4:43 PM CDT Scottish Comment: ----ADDITIONAL INFORMATION---- Estimated GFR calculated using [...] 4:06 Venous) CDT PM CDT Lorne Sanchez, Ch.B. LAB BLOOD ADD-ON Performing Organization Address City/State/ZIP Code Phon e Number [facility] - [address] [place], [place] [address] [facility] [place] [address] [facility] [address] [facility] (ABNORMAL) CBC without Differential (12/09/2021 3:14 PM CDT) [facility] Method Time Signature Hemoglobin 11.5 (L) 13.2 [...] 3:41 Venous) CDT PM CDT Lorne Sanchez, Joie LAB BLOOD ADD-ON Performing Organization Address City/State/ZIP Code Phon e Number [facility] - [address] [place], [place] [address] [facility] [place] [address] [facility] [address] documented in this encounter Visit Diagnoses Diagnosis Hematemesis - Primary Atrial Fibrillation Paroxysmal (HCC) 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 Scheduled Medication Order 12/09/2021 12/10/2021 12/11/2021 allopurinoL tablet 100 mg (ZYLOPRIM) 080 3 (Given - Provider: Janeth Nicole, R.N.) 0958 (Given - Provider: Janeth Nicole , R.N.) 100 mg, oral, Daily, First dose [...] (ROCALTROL) 0806 (Given - Provider: Janeth Nicole R.N.) 0.25 mcg, oral, 3 times weekly (Once per day on Mon), First dose on Mon12/10/21 at 0900 gentamicin 0.1 % ointment 1 application (GARAMYCIN) 1119 (Not Given - Provider: Janeth Nicole R.N. - Reason: Patient not available) 0959 (Given - Provider: Janeth Nicole R.N.) 1 application, topical, Daily, First dose on Mon12/10/21 at 1000 hydrALAZINE tablet 10 mg (APRESOLINE) (CANCELED) 2028 (Given - Provider: Cecelia Winkler R.N.) 0803 (Given - Provider: Suzy RandhawaN.)1412 (Given - Provider: Suzy RandhawaNBailey) 10 mg, oral, 3 times daily, First dose on Mon12/09/21 at 2100 isosorbide dinitrate tablet 2.5 mg (ISORDIL) 0548 (Given - Provider: Cecelia Winkler RBaileyN.)1118 (Not Given - Provider: Suzy RandhawaN. - Reason: Patient not available)1614 (Given - Provider: Janeth Nicole R.N.) 0614 (Given - Provider: Randee Gandhi RBaileyNBailey)1114 (Given - Provider: Suzy RandhawaNBailey) 2.5 mg, oral, 3 times daily before meals , First dose on Mon12/10/21 at 0700, HOLD for SBP <100 metoprolol tartrate tablet 25 mg (LOPRESSOR) 2028 (Giv en - Provider: Cecelia Winkler R.N.) 0803 (Given - Provider: Janeth Nicole R.N.)1952 (Given - Provider: Randee Gandhi R.N.) 0958 (Given - Provider: Janeth Nicole R.N.) 25 mg, oral, 2 times daily, First dose o n Alyssa 12/09/21 at 2100, HOLD for SBP <100 or HR <60 multivitamin renal failure 100-1 mg 1 tablet (DIALYVITE) 1614 (Given - Provider: Janeth Nicole R.N.) 1 tablet, oral, Daily with dinner, First dose on Mon12/10/21 at 1700, give after dialysis on dialysis days pantoprazole DR tablet 40 mg (PROTONIX) 161 (Given - Provider: Janeth Nicole R.N.) 0615 (Given - Provider: Randee Gandhi R.N.) 40 mg, oral, 2 times daily before breakf ast and dinner, First dose on Mon12/10/21 at 1615, Swallow whole. Do NOT crush, chew, or split tablet. pantoprazole injection 40 mg (PROTONIX) (CANCELED) 802 (Given - Provider: Janeth Nicole R.N.) 40 mg, intravenous, Every 24 hours sched uled, First dose on Mon12/10/21 at 0900, Administer IV push over 2 minutes. Add 10 mL NS to 40 mg vial for a final concentration of 4 mg/mL. potassium chloride ER tablet 10 mEq (KLORCON/K-TAB) (C OMPLETED) 2114 (Given - Provider: Cecelia Winkler RNicholas) 10 mEq, oral, Once, On Alyssa 12/09/21 at 20 45, For 1 dose, Swallow whole. Do NOT crush, chew, or split tablet. sucralfate tablet 1 g (CARAFATE) (CANCELED) 1802 (Not Given - Provider: Janeth Nicole R.N. - Reason: Medication not available - Comment: medication did not arrive before patient ate, NPO all day and wanted to eat) 614 (Given - Provider: Randee Gandhi R.N.) 1 g, oral, 2 times daily before breakfas t and dinner, First dose (after last modification) on 12/10/21 at 1630, For 14 days, Administer on an empty stomach (1 hour before or 2 hours after eating). torsemide tablet 20 mg (DEMADEX) 0958 (Given - Provider: Janeth Nicole RNicholas) 20 mg, oral, Daily, First dose on 12/11/21 at 0900, HOLD for SBP <100 Continuous Medication Order 12/09/2021 12/10/2021 12/11/2021 D5W and NaCl 0.45 % infusion () 2119 (New Bag - Provider: Cecelia Winkler R.N.) 1052 (Stopped - Provider: Janeth Nicole R.N.) [...]
--- OUTSIDE RECORDS SUMMARY | 2022-04-13 21:45 | XMS_ITS | Encounter Summary ---
:1940 Author Organization [facility] Address [address] [place] [address] Care Team Providers Name Role Phone Unavailable Primary Care Provider Unavailable Reason for Referral MRI/CAT/PET Scan (Routine) - Closed Specialty Diagnoses / Procedures Referred By Contact Refer red To Contact Radiology Diagnoses Pneumonitis Due To Inhalation Of Food And Vomit (HCC) Peng Tinajero M.D. [facility] Procedures CT Chest without IV Contrast OR CT THORAX WO CNTRST [address] [place] [address] [phone] Referral ID Status Reason Start Date Expiration Date Visits Requ ested Visits Authorized [id number] Closed 12/28/2021 12/28/2022 1 1 Reason for Visit MRI/CAT/PET Scan (Routine) - Closed Specialty Diagnoses / Procedures Referred By Contact Refer red To Contact Radiology Diagnoses Pneumonitis Due To Inhalation Of Food And Vomit (HCC) Peng Tinajero M.D. [facility] Procedures CT Chest without IV Contrast OR CT THORAX WO CNTRST [address] [place] [phone] Referral ID Status Reason Start Date Expiration Date Visits Requ ested Visits Authorized [id number] Closed 12/28/2021 12/28/2022 1 1 Encounter Details Date Type Department Care Team Description 03/02/2022 Hospital Encounter Department of Peng Tinajero Pneumon itis Due To RadiologyDanny M.D. Inhalation Of Food Building, in [address] [facility] And Vomit (HCC) [place], [place] [address] [address] [place], [place] [phone] (Work) [phone] Social History Tobacco Use Types Packs/Day Years [...] or relatives? How often do you attend mu-ism or latter-day More than 4 time s per year 04/11/2022 services? Do you belong to any clubs or organizations Yes 04/11/2022 such as mu-ism groups, unions, fraternal or athletic groups, or [...] place to sleep or slept in a nursing home (including now)? Education Answer Date Recorded What [...] Cardiovascular Disease Kayla Heredia M.D. [address] [place] [address] (Wo rk) documented as of this encounter [...]
--- OUTSIDE RECORDS SUMMARY | 2022-04-13 21:45 | XMS_ITS | Encounter Summary ---
:1940 Author Organization [facility] Address [address] [place] [address] Care Team Providers Name Role Phone Unavailable Primary Care Provider Unavailable Reason for Visit Reason Comments Med Refill Encounter Details Date Type Department Care Team Description 01/26/2022 Refill [facility], Estela Cummins, Med Refill [facility], [facility] [address] [place] [address] [place] [phone] [place] [address] [phone] Social History Tobacco Use Types Packs/Day Years [...] or relatives? How often do you attend mormon or zoroastrianism More than 4 time s per year 04/11/2022 services? Do you belong to any clubs or organizations Yes 04/11/2022 such as mormon groups, unions, fraternal or athletic groups, or [...] place to sleep or slept in a group home (including now)? Education Answer Date Recorded What is the highest level of school you have completed or 12 th grade 02/14/2019 the highest degree you have received? Sex Assigned at Date Recorded Male 04/11/2022 12:05 PM CDT documented as of this encounter Plan of Treatment Upcoming Encounters Date Type Specialty Care Team Description 04/15/2022 Comprehensive Visit Cardiovascular Disease Kayla Heredia M.D. [address] [place] [phone] (Wo rk) documented as of this encounter Visit Diagnoses Not on filedocumented in this encounter
--- OUTSIDE RECORDS SUMMARY | 2022-04-13 21:45 | XMS_ITS | Encounter Summary ---
:1940 Author Organization [facility] Address [address] [place] [address] Care Team Providers Name Role Phone Unavailable Primary Care Provider Unavailable Reason for Referral Outpatient (Routine) - Authorized Specialty Diagnoses / Referred By Contact Referred To Procedures Contact Gastroenterology and Diagnoses Vidhya Bergeron [facility] Hepatology Pablo QUINTANILLA.N.Arvin, M.S.N. [address] [place] [phone] Referral ID Status Reason Start Date Expiration Date Visits V isits Requested Authorized [id number] Authorized 12/13/2021 12/13/2022 1 1 Encounter Details Date Type Department Care Team Description 12/13/2021 Clinical Communication RST HIM Vidhya Goldstein [address] [facility] Guevara C.N.PBailey, [place], [place] M.S.N. [phone] [place] [phone] Social History Tobacco Use Types Packs/Day Years [...] or relatives? How often do you attend worship or gnosticist More than 4 time s per year 04/11/2022 services? Do you belong to any clubs or organizations Yes 04/11/2022 such as worship groups, unions, fraCloak or athletic groups, or school groups? How [...] place to sleep or slept in a custodial (including now)? Education Answer Date Recorded What is the highest level of school you have completed or 12 th grade 02/14/2019 the highest degree you have received? Sex Assigned at Date Recorded Male 04/11/2022 12:05 PM CDT documented as of this encounter Plan of Treatment Upcoming Encounters Date Type Specialty Care Team Description 04/15/2022 Comprehensive Visit Cardiovascular Disease Kayla Heredia M.D. [address] [place] [address] (Wo rk) Scheduled Referrals Name Type Priority Associated Order Schedule Diagnoses Gastroenterology and Outpatient Routine Achalasia Expecte d: Hepatology - Esophageal Referral 11/20 consult (clinic) (Approximat e), Expires: 03/14/2023 documented as of this encounter Visit Diagnoses Diagnosis Achalasia - Primary documented in this encounter
--- OUTSIDE RECORDS SUMMARY | 2022-04-13 21:45 | XMS_ITS | Encounter Summary ---
:1940 Author Organization [facility] Address [address] [place] [address] Care Team Providers Name Role Phone Unavailable Primary Care Provider Unavailable Reason for Referral Outpatient (Routine) - Closed Specialty Diagnoses / Procedures Referred By Contact Refer red To Contact Pulmonary Medicine Peng Tinajero M.D. [facility] [address] [place] [address] Referral ID Status Reason Start Date Expiration Date Visits Requ ested Visits Authorized [id number] Closed 12/28/2021 12/28/2022 1 1 Scheduling Instructions F/U pleural clinic. I am happy to see bu t if this doesn't work out he can be seen in pleural clinic. RI/CAT/PET Scan (Routine) - Closed Specialty Diagnoses / Procedures Referred By Contact Refer red To Contact Radiology Diagnoses Pneumonitis Due To Inhalation Of Food And Vomit (HCC) Peng Tinajero M.D. [facility] Procedures CT Chest without IV Contrast [place] CT THORAX WO CNTRST [address] [place], [place] [phone] Referral ID Status Reason Start Date Expiration Date Visits Requ ested Visits Authorized [id number] Closed 12/28/2021 12/28/2022 1 1 Encounter Details Date Type Department Care Team Description 12/28/2021 Orders Only Division of Pulmonary Peng Tinajero, Pneum onitis Due To Medicine in [place] [facility] [place] 200 [facility] Vomit (HCC) 200 [place] [phone] Social History Tobacco Use Types Packs/Day Years [...] How often do you attend baptist or latter-day More than 4 time s per year 04/11/2022 services? Do you belong to any clubs or organizations Yes 04/11/2022 such as baptist groups, unions, fraternal or [...] place to sleep or slept in a chcf (including now)? Education Answer Date Recorded What is the highest level of school you have completed or 12 th grade 02/14/2019 the highest degree you have received? Sex Assigned at Date Recorded Male 04/11/2022 12:05 PM CDT documented as of this encounter Plan of Treatment Upcoming Encounters Date Type Specialty Care Team Description 04/15/2022 Comprehensive Visit Cardiovascular Disease Kayla Heredia M.D. [address] [place] [phone] (Wo rk) Scheduled Referrals Name Type Priority Associated Diagnoses Order S [facility] Pulmonary Medicine Outpatient Referral Routine Ex [...] stable. Peng Tinajero M.D. IMG CT PROCEDURES documented in this encounter Visit Diagnoses Diagnosis Pneumonitis Due To Inhalation Of Food An d Vomit (HCC) Pneumonitis Due To Inhalation Of Food An d Vomit (HCC) documented in this encounter
--- OUTSIDE RECORDS SUMMARY | 2022-04-13 21:45 | XMS_ITS | Encounter Summary ---
:1940 Author Organization [facility] Address [address] [place] [address] Care Team Providers Name Role Phone Unavailable Primary Care Provider Unavailable Reason for Referral Outpatient (Routine) - Closed Specialty Diagnoses / Procedures Referred By Contact Refer red To Contact Pulmonary Medicine Diagnoses Empyema Pleural (HCC) Maria G Adame [facility] Estela, M.S. [address] [place] [phone] Referral ID Status Reason Start Date Expiration Date Visits Requ ested Visits Authorized [id number] Closed 12/07/2021 12/07/2022 1 1 Reason for Visit Outpatient (Routine) - Closed Specialty Diagnoses / Procedures Referred By Contact Refer red To Contact Pulmonary Medicine Diagnoses Empyema Pleural [facility]CC) [facility] [address] [place] [phone] Referral ID Status Reason Start Date Expiration Date Visits Requ ested Visits Authorized [id number] Closed 12/07/2021 12/07/2022 1 1 Encounter Details Date Type Department Care Team Description 12/28/2021 Hospital Encounter Division of [place], Peng Emerson Empyema Pleural Pulmonary Medicine Trinh ([facility]) in [place], [address] [place], [place] [address] [place] [address] [place], [place] [phone] (Work) [phone] Social History Tobacco Use Types Packs/Day Years [...] or relatives? How often do you attend jain or confucianism More than 4 time s per year 04/11/2022 services? Do you belong to any clubs or organizations Yes 04/11/2022 such as jain groups, unions, fraternal or athletic groups, or [...] place to sleep or slept in a fpc (including now)? Education Answer Date Recorded What [...] He is a delightful 81-year-old man from [place], [place], who was recently hospitalized from 12/02 [...] stop date. He feels much better now. Hehas had no recent fevers, sweats, or chills. [...] have a follow-up CT scan done at [facility]. We discussed elevation of the head of the bed in detail, given his recurrent risk for aspiration pneumonia. He also is taking an antiacid pill and avoiding meals before he goes to bed. Given his achalasia, he is on a liquid diet. MARGIN CODE: E5, 50 minutes. Peng Tinajero M.D. CT CT Job ID: [id number] documented in this encounter Plan of Treatment Upcoming Encounters Date Type Specialty Care Team Description 04/15/2022 Comprehensive Visit Cardiovascular Disease Kayla Heredia M.D. [address] [place] [address] (Wo rk) Scheduled Referrals Name Type Priority Associated Order Schedule Diagnoses Pulmonary Medicine Outpatient Referral Routine Empyema Pleural Once for 1 - Pleural Disease (HCC) Occurrence s starting consult (clinic) 12/28/2021 until 12/28/2021 documented as of this encounter Visit Diagnoses Diagnosis Empyema Pleural (HCC) documented in this encounter
--- OUTSIDE RECORDS SUMMARY | 2022-04-13 21:45 | XMS_ITS | Encounter Summary ---
:1940 Author Organization [facility] Address [address] [place] [address] Care Team Providers Name Role Phone Unavailable Primary Care Provider Unavailable Encounter Details Date Type Department Care Team Description 12/27/2021 Clinical Communication Visit Review in [place], [place] [address] [place], [place] [phone] Social History Tobacco Use Types Packs/Day Years [...] or relatives? How often do you attend yarsani or episcopal More than 4 time s per year 04/11/2022 services? Do you belong to any clubs or organizations Yes 04/11/2022 such as yarsani groups, unions, fraternal or athletic groups, or [...] place to sleep or slept in a fdc (including now)? Education Answer Date Recorded What is the highest level of school you have completed or 12 th grade 02/14/2019 the highest degree you have received? Sex Assigned at Date Recorded Male 04/11/2022 12:05 PM CDT documented as of this encounter Plan of Treatment Upcoming Encounters Date Type Specialty Care Team Description 04/15/2022 Comprehensive Visit Cardiovascular Disease Kayla Heredia M.D. [address] [place] [phone] (Wo rk) documented as of this encounter Visit Diagnoses Not on filedocumented in this encounter
--- OUTSIDE RECORDS SUMMARY | 2022-04-13 21:45 | XMS_ITS | Encounter Summary ---
:1940 Author Organization [facility] Address [address] [place] [address] Care Team Providers Name Role Phone Unavailable Primary Care Provider Unavailable Reason for Visit Auth/Cert Specialty Diagnoses / Procedures Referred By Contact Refer red To Contact Diagnoses Hematemesis Hematemesis on Coumadin Procedures DIR Referral ID Status Reason Start Date Expiration Date Visits Requ ested Visits Authorized [id number] 1 1 Encounter Details Date Type Department Care Team Description 12/10/2021 Anesthesia Event Division of Gastroenterology Jamel Powers in [facility] bret Shah, EXTRUSION PRESS SUPERVISOR, LANDS RESOURCE MANAGER, [address] [place], [place] [phone] [facility] [phone] [place] [address] Anesthesia Record Procedure Summary Procedure Name Responsible Anesthesia Start Anesthesia Stop Time Anesthesiologist Time EGD Jamel Powers APRN, 12/10/21 1210 2 1256 (ESOPHAGEALGASTRODU [facility] ODENOSCOPY) Events Date Time Event Comment 12/10/2021 [...] h andoff to the receiving staff during [facility] we 1. Identified the patient 2. [...] 12/11/21 1136 b y 12/09/21; Placement Janeth Nicole Prange, B rianna M, Time: 1400; Existing R.N. R.N. LDA Placed by: Other hospital; Orientation: Left; Location: Antecubital; Removal Date: 12/11/21; Removal Time: 1136 ETT Placement Date: 12/10/21 1218 by 12/10/21 1251 b y 12/10/21; Placement Bassam Hunt Roesner, Justin C, Time: 1218 (created via EXTRUSION PRESS SUPERVISOR, LANDS RESOURCE MANAGER, D.N.P. EXTRUSION PRESS SUPERVISOR, LANDS RESOURCE MANAGER, DNAP procedure documentation); Mask Ventilation: Not attempted; [...] How often do you attend worship or islam More than 4 time s per year 04/11/2022 services? Do you belong to any clubs or organizations Yes 04/11/2022 such as worship groups, unions, fraternal or athletic groups, or [...] place to sleep or slept in a care home (including now)? Education Answer Date Recorded What is the highest level of school you have completed or 12 th grade 02/14/2019 the highest degree you have received? Sex Assigned at Date Recorded Male 04/11/2022 12:05 PM CDT documented as of this encounter OR Notes Anesthesia Postprocedure Evaluation - Jamel Powers APRN, CRNA, JOO - 12/10/2021 7:23 PM CDT Patient: David Castro Procedure Summary Date: 12/10/21 Room / Location: Division of Gastroenterology in [place], [place] Anesthesia Start: 1210 Anesthesia Stop: 1256 [...] ETT location: oral VL device: glide scope [place] scope blade size: 3 Adult tube size: [...] EGD (ESOPHAGEALGASTRODUODENOSCOPY) Location: Division of Gastroenterology in [place], [place] Pertinent components of the patient's history [...] with patient /legal guardian or through an functional tester. Risks/Benefits/Alternatives of Blood transfusion discussed with patient [...] Visit Cardiovascular Disease Kayla Heredia M.D. [address] [place] [phone] (Wo rk) documented as of this encounter Procedures Procedure Name Priority Date/Time Associated Comments Diagnosis LDA ANE ENDOTRACHEAL Routine 12/10/2021 12:18 Res ults for this AIRWAY PM CDT procedure are i n the results section. documented in this encounter Results LDA ANE ENDOTRACHEAL AIRWAY (12/10/2021 12:18 PM CDT) Narrative Bassam Hutn APRN, CRNA, D.N.P. - 12/10/2021 12:18 PM CDT Bassam Hunt APRN, CRNA, D.N.P. ? 12/10/2021 12:31 PM Airway Date/Time: [...] ETT location: oral VL device: glide scope [place] scope blade size: 3 Adult tube size: [...] no complications ATTESTATION STATEMENT Bassam Hunt APRN, LANDS RESOURCE MANAGER, D.N.P. ANESTHESIA ORDERA BLES documented in this [...]
--- OUTSIDE RECORDS SUMMARY | 2022-04-13 21:45 | XMS_ITS | Encounter Summary ---
:1940 Author Organization [facility] Address [address] [place] [address] Care Team Providers Name Role Phone Unavailable Primary Care Provider Unavailable Reason for Visit MRI/CAT/PET Scan (Routine) - Modified Order Specialty Diagnoses / Procedures Referred By Contact Refer red To Contact Radiology Diagnoses Empyema Pleural (HCC) Maria G Adame P.A.-C., [facility] Procedures CT Chest without IV Contrast CT Chest with IV Contrast [facility] [address] [place] [phone] Referral ID Status Reason Start Date Expiration Date Visits V isits Requested Authorized [id number] Modified 12/07/2021 12/07/2022 1 1 Order Encounter Details Date Type Department Care Team Description 12/28/2021 Hospital Encounter Department of Maria G Adame, Empyem a Pleural (HCC) Radiology, [facility] Estela, [facility], in [address] [place] [address] [place] [address] [place], [place] [phone] (Work) [phone] Social History Tobacco Use Types Packs/Day Years [...] or relatives? How often do you attend scientologist or voodoo More than 4 time s per year 04/11/2022 services? Do you belong to any clubs or organizations Yes 04/11/2022 such as scientologist groups, unions, fraternal or athletic groups, or [...] 2 1 mg on /Mon and 0 05/ mg tablet 2 mg on M/W/F/Sat. gentamicin (GARAMYCIN) Apply 1 application 15 g [...] Cardiovascular Disease Kayla Heredia M.D. [address] [place] [address] (Wo rk) documented as of this encounter [...]
--- OUTSIDE RECORDS SUMMARY | 2022-04-13 21:45 | XMS_ITS | Encounter Summary ---
:1940 Author Organization [facility] Address [address] [place] [address] Care Team Providers Name Role Phone Unavailable Primary Care Provider Unavailable Encounter Details Date Type Department Care Team Description 12/08/2021 Orders Only Division of Nephrology and [place], Lyric Leiva PRN, Hypertension, Congregation C.N.P. Banks, in [place], [facility] [address] [place], [place] [address] [place] [phone] [place] [address] [phone] Social History Tobacco Use Types Packs/Day Years [...] or relatives? How often do you attend christianity or judaism More than 4 time s per year 04/11/2022 services? Do you belong to any clubs or organizations Yes 04/11/2022 such as christianity groups, unions, fraternal or athletic groups, or [...] Comprehensive Visit Cardiovascular Disease Kayla Heredia M.D. [address] [place] [phone] (Wo rk) documented as of this encounter Visit Diagnoses Not on filedocumented in this encounter Additional Health Concerns Infection Onset Date Last Indicated Resolved Time COVID19 Pending 12/09/2021 12/09/2021 12/09/2021 8:00 PM CDT COVID19 Pending 12/09/2021 12/09/2021 12/09/2021 8:26 PM CDT documented as of this encounter
--- OUTSIDE RECORDS SUMMARY | 2022-04-13 21:45 | XMS_ITS | Encounter Summary ---
:1940 Author Organization [facility] Address [address] [place] [address] Care Team Providers Name Role Phone Unavailable Primary Care Provider Unavailable Reason for Visit Reason Comments Release of Information Encounter Details Date Type Department Care Team Description 03/03/2022 Clinical Division of Jessa Heredia of Communication Pulmonary Medicine Trinh Mendes Information in [place] [address] [address] [place], [place] [address] [facility] [address] [place], [place] [phone] (Work) [phone] Social History Tobacco Use Types Packs/Day Years [...] How often do you attend yarsani or church More than 4 time s per year [...] [facility] Evidence intake Method: MERLINE Ferrell / [id number] documented in this encounter Plan of Treatment Upcoming Encounters Date Type Specialty Care Team Description 04/15/2022 Comprehensive Visit Cardiovascular Disease Kayla Heredia M.D. [address] [place] [address] (Wo rk) documented as of this encounter Visit Diagnoses Not on filedocumented in this encounter
--- OUTSIDE RECORDS SUMMARY | 2022-04-13 21:46 | XMS_ITS | Encounter Summary ---
:1940 Author Organization [facility] Address [address] [place] [address] Care Team Providers Name Role Phone Unavailable [...] or relatives? How often do you attend pentecostal or pentecostal More than 4 time s per year 04/11/2022 services? Do you belong to any clubs or organizations Yes 04/11/2022 such as pentecostal groups, unions, fraternal or athletic groups, or [...] Cardiovascular Disease Kayla Heredia M.D. [address] [place] [address] (Wo rk) documented as of this encounter [...]
--- OUTSIDE RECORDS SUMMARY | 2022-04-13 21:46 | XMS_ITS | Encounter Summary ---
:1940 Author Organization [facility] Address [address] [place] [id number] Care Team Providers Name Role Phone Unavailable Primary Care Provider Unavailable Reason for Referral Outpatient (Routine) - Closed Specialty Diagnoses / Procedures Referred By Contact Refer red To Contact Diagnoses Guillermo Ayers M.D., [facility] Procedures [place] XR ESOPHAGUS [place] XR [place]HAG[place] XR ESOPHAGUS Ph.D. 200 [place] [address] Referral ID Status Reason Start Date Expiration Date Visits Requ ested Visits Authorized [id number] Closed 12/17/2018 12/17/2019 1 1 Reason for Visit Outpatient (Routine) - Closed Specialty Diagnoses / Procedures Referred By Contact Refer red To Contact Diagnoses Guillermo Ayers M.D., [facility] Procedures [place] XR ESOPHAGUS HC XR [place] XR ESOPHAGUS Ph.D. [address] [place] [address] Referral ID Status Reason Start Date Expiration Date Visits Requ ested Visits Authorized [id number] Closed 12/17/2018 12/17/2019 1 1 Encounter Details Date Type Department Care Team Description 02/15/2019 Hospital Encounter Department of Radiology, Cinthya Werner, eryn Freeman M.D., Ph.D. [address] [phone] Social History Tobacco Use Types Packs/Day Years Used Date Smoking Tobacco: Never Alcohol Habits Answer Date Recorded How often [...] or relatives? How often do you attend quaker or congregational More than 4 time s per year 04/11/2022 services? Do you belong to any clubs or organizations Yes 04/11/2022 such as quaker groups, unions, [employer] or athletic groups, or school groups? How [...] place to sleep or slept in a jail (including now)? Education Answer Date Recorded What [...] Cardiovascular Disease Kayla Heredia M.D. [address] [place] [address] (Wo rk) documented as of this encounter [...]
--- OUTSIDE RECORDS SUMMARY | 2022-04-13 21:46 | XMS_ITS | Encounter Summary ---
:1940 Author Organization [facility] Address [address] [place] [address] Care Team Providers Name Role Phone Unavailable Primary Care Provider Unavailable Encounter Details Date Type Department Care Team Description 2021 Clinical Communication RST [facility]ran [facility] [address] [facility] Estela Mendes, M.S. [place], [place] [address] [facility] [phone] [place] [phone] Social History Tobacco Use Types Packs/Day Years [...] How often do you attend orthodoxy or amish More than 4 time s per year 04/11/2022 services? Do you belong to any clubs or organizations Yes 04/11/2022 such as orthodoxy groups, unions, fraternal or [...] place to sleep or slept in a alf (including now)? Education Answer Date Recorded What is the highest level of school you have completed or 12 th grade 02/14/2019 the highest degree you have received? Sex Assigned at Date Recorded Male 04/11/2022 12:05 PM CDT documented as of this encounter Plan of Treatment Upcoming Encounters Date Type Specialty Care Team Description 04/15/2022 Comprehensive Visit Cardiovascular Disease Kayla Heredia M.D. [address] [place] [phone] (Wo rk) documented as of this encounter Visit Diagnoses Diagnosis Achalasia - Primary documented in this encounter Additional Health Concerns Infection Onset Date Last Indicated Resolved Time COVID19 Pending 12/09/2021 12/09/2021 12/09/2021 8:00 PM CDT COVID19 Pending 12/09/2021 12/09/2021 12/09/2021 8:26 PM CDT documented as of this encounter
--- OUTSIDE RECORDS SUMMARY | 2022-04-13 21:46 | XMS_ITS | Encounter Summary ---
:1940 Author Organization [facility] Address [address] [place] [address] Care Team Providers Name Role Phone Unavailable [...] or relatives? How often do you attend mandaen or mandaen More than 4 time s per year 04/11/2022 services? Do you belong to any clubs or organizations Yes 04/11/2022 such as mandaen groups, unions, fraternal or athletic groups, or [...] place to sleep or slept in a senior care (including now)? Education Answer Date Recorded What [...] Disease Kayla Heredia M.D. [address] [place] [address] (Wo rk) documented as of this encounter [...]
--- OUTSIDE RECORDS SUMMARY | 2022-04-13 21:46 | XMS_ITS | Encounter Summary ---
:1940 Author Organization [facility] Address [address] [place] [address] Care Team Providers Name Role Phone Unavailable Primary Care Provider Unavailable Reason for Visit Outpatient (Routine) - Closed Specialty Diagnoses / Referred By Referred To Cont act Procedures Contact Gastro[facility]ology [facility] [place] Trang sanchez Hepatology Laura GranadosB.S. 200 [place] [address] Referral ID Status Reason Start Date Expiration Date Visits Requ ested Visits Authorized [id number] Closed 02/14/2019 02/14/2020 1 1 Encounter Details Date Type Department Care Team Description 02/20/2019 Office Visit Division of Kelechi Werner ([facility] [place], [place] Ph.D. [address] [place] [phone] Social History Tobacco Use Types Packs/Day Years Used Date Smoking Tobacco: Never Smokeless Tobacco: Never Alcohol Habits Answer Date Recorded [...] How often do you attend spiritism or congregational More than 4 time s per year 04/11/2022 services? Do you belong to any clubs or organizations Yes 04/11/2022 such as spiritism groups, unions, fraternal or [...] PM CDT documented as of this encounter Progress Notes [...] Cardiovascular Disease Kayla Heredia M.D. [address] [place] [address] (Wo rk) documented as of this encounter Visit Diagnoses Diagnosis Achalasia - Primary documented in this encounter
--- OUTSIDE RECORDS SUMMARY | 2022-04-13 21:46 | XMS_ITS | Encounter Summary ---
:1940 Author Organization [facility] Address [address] [place] [phone] Care Team Providers Name Role Phone Unavailable Primary Care Provider Unavailable Reason for Referral Outpatient (Routine) - Closed Specialty Diagnoses / Procedures Referred By Contact Refer red To Contact Pulmonary Medicine Diagnoses Empyema [facility]ural [facility]HCC[facility] [address] [place] [phone] Referral ID Status Reason Start Date Expiration Date Visits Requ ested Visits Authorized [id number] Closed 12/07/2021 12/07/2022 1 1 Encounter Details Date Type Department Care Team Description 12/07/2021 Clinical Communication RST HIM Maria G Adame, [address] [place] [address] Estela, M.S. [place], [place] [address] [place] [phone] [place] [address] Social History Tobacco Use Types Packs/Day Years [...] or relatives? How often do you attend jew or religion More than 4 time s per year 04/11/2022 services? Do you belong to any clubs or organizations Yes 04/11/2022 such as jew groups, unions, fraternal or athletic groups, or [...] Cardiovascular Disease Kayla Heredia M.D. [address] [place] [address] (Wo rk) Scheduled Referrals Name Type Priority Associated Diagnoses Order S [facility] Pulmonary Medicine Outpatient Referral Routine Empyema Pleural [...]
--- OUTSIDE RECORDS SUMMARY | 2022-04-13 21:46 | XMS_ITS | Encounter Summary ---
:1940 Author Organization [facility] Address [address] [place] [id number] Care Team Providers Name Role Phone Unavailable Primary Care Provider Unavailable Reason for Visit Auth/Cert Specialty Diagnoses / Procedures Referred By Contact Refer red To Contact Diagnoses Empyema Pleural (HCC) weakness Procedures DIR TO IP Referral ID Status Reason Start Date Expiration Date Visits Requ ested Visits Authorized [id number] 1 1 Encounter Details Date Type Department Care Team Description 2021 - [facility] John Paul Dockery M.D., M.P.H. [address] [place] [address] Hydropneumothorax (Primary Dx); [facility] [address] [place] [address] Empyema Pleural (HCC); [facility], Ace Menchaca M.D. Effusion Pleural; Domitilla Dysphagia; Building, [facility] Floor [address] [place] [id number] Social History Tobacco Use Types Packs/Day [...] How often do you attend baptism or christianity More than 4 time s per year [...] place to sleep or slept in a half-way (including now)? Education Answer Date Recorded What [...] CDT DISCHARGE SUMMARY BRIEF OVERVIEW Discharge Hospital: [facility] Discharge Provider: Arti Lozoya M.D. Discharge Provider Team: Hospital Internal Medicine ([facility]) - [facility] Medicine 8 ([facility]) No primary care provider on file. [...] Admitting/Central Scheduling 12/28/2021 8:[address] JUN PAW PAW LOS 809 Radiology 12/28/2021 1:30 PM Peng Tinajero M.D. Pulmonary Medicine For appointment details refer to your Patient Appointment Guide. TEST RESULTS PENDING AT DISCHARGE Pending Labs Order Current Status Fungal Culture, Routine In process DETAILS OF HOSPITAL STAY REASON FOR ADMISSION Empyema Pleural (HCC) HOSPITAL COURSE Mr. David Castro is a 81 y.o. male who presented to the [facility] ED with a chief complaint of weakness [...] both lower legs. He initially presented to [place] [facility], then transitioned to [facility] for further care. Identified on CTperformed at [place] to have a complex hydropneumothorax with scattered [...] care was discussed with Dr. Lozoya, HIM managed services sales consultant. I saw and evaluated Mr. David Castro today and provided counseling rlhz-zl-aqqa at bedside. I personally spent a total of 35 minutes in counseling and coordination of care as described above to facilitate the hospital discharge. Discharge instructions were provided to the patient and caregiver(s). documented in this encounter Discharge Instructions Discharge InstructionsBernice Pisano - 2021 7:19 AM CDT You were discharged from the [place] [address] ([facility]) Service. Please identify this service name if you call with questions after hospitalization. AppointmentsBernice Pisano - 2021 2:46 PM CDT Take a copy of this after visit summary to your appointment(s). DIVINA Van December 09, 2021 - --4:10 PM - Hospital Follow-Up with Dr. Doran, at [facility] Address: [address] [place] [address]. [place] [address] If you have any questions, concerns, or need to reschedule please call [phone] AttachmentsThe following attachments cannot be sent through Care Everywhere. Amoxicillin/Clavulanate Potassium (By mouth) (Montserratian)Gentamicin (On the skin) (Montserratian)Cholecalciferol (By mouth) ([place]serratian)documented in this encounter Medications at Time of [...] as of this encounter Progress Notes Shanon Turner, DWIGHT, C.N.P. - 12/08/2021 9:46 AM CDT SUBJECTIVE Mr. [...] he dismisses today as recommended by Nephrology managed services sales consultant Dr. Kennedy. Addendum: Continue to hold his oral torsemide 40 mg daily in the setting of soft blood pressure [facility] His peritoneal dialysis nurse in the outpatient [...] Plan was reviewed with Dr. Kennedy nephrology managed services sales consultant. For questions or concerns, please page the Nephrology A [place] pager, [phone] or you may text page by clicking here. Associated attestation - Yamileth Kennedy M.D., Ph.D. - 12/08/2021 1:52 PM CDT I was the supervising physician in the delivery of the service. Diana Reed, JANY, LD - 12/07/2021 2:55 PM CDT Clinical [...] each. See patient education flowsheet for details. Animal Anatomist assisted with ordering late afternoon meal and breakfast. Patient stops eating by 3-4 pm and sits upright after all meals and while asleep. PLAN If patient remains hospitalized, may consider transitioning to regular diet to allow foods of his tolerance and preference. For questions about patient's nutritional care please contact pager [phone] on weekdays or [phone] on weekends/holidays. Juan Pablo Giron, D., R.Ph. - 12/07/2021 1:00 PM CDT Warfarin [...] questions about this note. Yue Perez O.T., [facility] - 12/07/2021 12:48 PM CDT OT Dysphagia [...] pleural fluid when he was admitted to [facility] for heart failure (EF 25-30%). This pleural [...] was seen and discussed with the supervising managed services sales consultant, Dr. Gonzales. We will sign off. Please contact [phone] with questions or concerns. Jaqueline Moseley M.D. [facility] Fellow Associated attestation - Chely Gonzales [...] is glad to see the sun shining. Air Valve Repairer initiated contact to introduce spiritual care department and to assess for potential spiritual care needs. Family: Mr. Castro's support system was at the bedside. Marixa Tradition: Mr. Castro is Anabaptism, per his chart. He shares that he's been able to watch his baptism's services online and has found it to be comforting. Mr. Castro did not think he had any specific spiritual care needs at this time and was alerted to finance accounting internship availability if any needs arise in the future. Plan: Will remain available for spiritual care as needed or requested. Chaplains can be contacted bypaging [phone] ([place]) or [phone] ([place]). Jeannine Jay APRN, C.N.P., M.S.N. - 12/07/2021 [...] or concerns, please page the Nephrology A [place]UCK [place]ON [place]OOK/[place] pager, [phone] or you may text page by clicking here. Associated attestation - Yamileth Kennedy M.D., Ph.D. - 12/07/2021 2:18 PM CDT I was the supervising physician in the delivery of the service. Maria G Adame P.A.-C., M.S. - 12/07/2021 7:34 AM CDT [facility] Medicine 8 ([facility]) Progress Note SUBJECTIVE Interval history: Patient [...] / PLAN Mr. Castro is hospitalized on [place] [address] ([facility]) for evaluation and management of Empyema Pleural(HCC). 81 year old male admitted for weakness and new right sided pleural effusion. He was brought to the ED after he was unable to stand to get out of his car due to acute onset of lower extremity weakness. Work up in the ED was notable for Initially He is admitted to [place] [address] for further evaluation. ?? #1 Weakness, generalized [...] weeks -follow up in Esophagus clinic -appreciate software product manager to discuss diet education ?? #13 Elevated [...] care was discussed with Dr. Lozoya, HIM managed services sales consultant. Counseling was provided qebi-dv-xbho at bedside regarding the plan of care as stated above. I personally spent over half of a total 35 minutes in counseling and coordination of care as documented above. Maria G Adame P.A.-C., M.S. [facility] - [phone] [address] M.B.BBaileyS. - 12/06/2021 3:58 PM CDT GASTROENTEROLOGY CONSULT [...] Please page the GI consult pager at [phone] with any further questions or concerns. Evette [...] feel free to discusswith Dr. Yamileth Kennedy, kiln mechanic and IR. -- As patient NPO, please [...] or concerns, please page the Nephrology A [place] pager, [phone] or you may text page by clicking here. Associated attestation - Yamileth Kennedy M.D., Ph.D. - 12/06/2021 6:01 PM CDT I reviewed the case with the resident/fellow but did not see the patient. I agree with the assessment and plan as documented in the CHUCK WAGON COOK's note. Jaqueline Fontanez M.D. - 12/06/2021 10:32 [...] effusion. Images were saved and uploaded to [employer]. DIAGNOSTICS I have reviewed relevant laboratory, imaging, [...] pleural fluid when he was admitted to [facility] for heart failure (EF 25-30%). This pleural [...] was seen and discussed with the supervising managed services sales consultant, Dr. Gonzales. We will continue to follow. Please contact [phone] with questions or concerns. Jaqueline Moseley M.D. [facility] Fellow Associated attestation - Chely Gonzales [...] we will continue to follow. Soo Plaza, Louie., R.Ph. - 12/06/2021 10:11 AM CDT Pharmacist [...] 5.) Constipation: Miralax daily Soo Plaza, PharmD [phone] Simran Helm P.A.-C., M.S. - 12/06/2021 7:44 AM CDT [facility] Medicine 8 ([facility]) Progress Notes SUBJECTIVE The [facility] Medicine 8 ([facility]) service evaluated Mr. Castro this morning [...] [65-71] 65 Intake/Output Last 24 Hours: Date 12/05/21699 - 12/06/2165812/06/21 07 - 12/07/21 0659 Shift 0914-0483 5966-2233 2562-2930 24 Hour Total 1930-5633 1820-5521 2948-2217 24 Hour Total INTAKE P.O. 180 240 420 Other 10 223 233 20 20 Intermittent Medications 50 50 50 150 50 50 Shift Total(mL/kg) 240(3.1) 290(3.7) 273(3.5) 803(10.3) 70(0.9) 70(0.9) OUTPUT Urine(mL/kg/hr) 750 750 Urine 750 750 Chest Tube 180 180 Dialysis 2 0 2 Shift Total(mL/kg) 2(0) 180(2.3) 182(2.3) 750(9.6) 750(9.6) NET 240 288 93 621 -680 -680 Weight (kg) 78 78 78 78 78 [...] CAM negative for acute delirium. 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 ASSESSMENT / PLAN Mr. Castro is hospitalized on [place] [address] ([facility]) for evaluation and management of Empyema Pleural(HCC). He was brought to the ED after he was unable to stand to get out of his car due to acute onset of lower extremity weakness. Additional workup in the ED concerning for recurrent pleural effusions/empyema as below. He is admitted to [place] [address] for further evaluation. #1 Weakness, generalized Improved [...] plan of care detailed above. I provided pdvi-hh-ydke counseling at bedside regarding the plan of care. The patient acknowledged an understanding and agreed with the plan of care listed above. I personally spent over half of a total 40 minutes in counseling and coordination of care as documented above. Simran Helm M.S., PA-C Pager: [phone] Evette Pham APRN, C.N.P., D.N.P. - 12/05/2021 [...] or concerns, please page the Nephrology A [place] pager, [phone] or you may text page by clicking [...] effusion. Images were saved and uploaded to [employer]. DIAGNOSTICS I have reviewed relevant laboratory, imaging, [...] pleural fluid when he was admitted to [facility] for heart failure (EF 25-30%). This pleural [...] was seen and discussed with the supervising managed services sales consultant, Dr. Means. We will continue tofollow. Please contact [phone] with questions or concerns. Avis Dobson. [facility] Fellow Associated attestation - Will Means [...] P.A.-C., M.S. - 12/05/2021 6:58 AM CDT [facility] Medicine 8 ([facility]) Progress Notes SUBJECTIVE The [facility] Medicine 8 ([facility]) service evaluated Mr. Castro this morning [...] 12/04/21699 - 12/05/2165812/05/21699 - 12/06/21 0659 Shift 9478-3812 0556-0712 3713-4886 24 Hour Total 6003-7982 9888-9522 5682-4051 24 Hour Total INTAKE P.O. 210 210 Other 10 0 10 Intermittent Medications 50 50 50 150 Shift Total(mL/kg) 270(3.4) 50(0.6) 50(0.6) 370(4.7) OUTPUT Urine(mL/kg/hr) 350(0.6) 275 625 Urine 350 275 625 Chest Tube 160 60 220 Dialysis 4 80 84 Shift Total(mL/kg) 514(6.5) 415(5.3) 929(11.8) NET 270 464 -365 -129 Weight (kg) 78.6 78.6 78.6 78.6 78.6 [...] CAM negative for acute delirium. 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 ASSESSMENT / PLAN Mr. Castro is hospitalized on [place] [address] ([facility]) for evaluation and management of Empyema Pleural(HCC). He was brought to the ED after he was unable to stand to get out of his car due to acute onset of lower extremity weakness. Additional workup in the ED concerning for recurrent pleural effusions/empyema as below. He is admitted to [place] [address] for further evaluation. #1 Weakness, generalized Improved [...] plan of care detailed above. I provided pjsz-qo-uiry counseling at bedside regarding the plan of care. The patient acknowledged an understanding and agreed with the plan of care listed above. I personally spent over half of a total 40 minutes in counseling and coordination of care as documented above. Simran Helm M.S., PA-C Pager: [phone] Jaqueline Fontanez M.D. - 12/04/2021 3:19 PM [...] effusion. Images were saved and uploaded to [employer]. DIAGNOSTICS I have reviewed relevant laboratory, imaging, [...] pleural fluid when he was admitted to [facility] for heart failure (EF 25-30%). This pleural [...] was seen and discussed with the supervising managed services sales consultant, Dr. Means. We will continue tofollow. Please contact [phone] with questions or concerns. Jaqueline Moseley M.D. [facility] Fellow Yamileth Kennedy M.D., Ph.D. - 12/04/2021 2:56 PM CDT This is a supervisory note to Mrs. Pham nurse practitioner. I met with the patient interviewed examined him he is receiving CCPD in the hospital overnight with 1.5% Dianeal. He was happy with the connect disconnect procedures overnight. Has no pain on instillation. I/O 12/03 0000 12/03 0000 12/04 2358 P.O. 640 210 Other 10 Crystalloid Bolus [...] or concerns, please page the Nephrology A CHUCK WAGON COOK/[place] pager, [phone] or you may text page by clicking here. Will Means M.D. - 12/04/2021 1:46 PM CDT Narrative summary: We visited with this patient for long time at the bedside. We reviewed his CT scan and his prior records including initial consult from Dr. Jimenez. I discussed the case with nephrology pppf-rv-wltn. He is an 81M never smoker who is retired from [email or web address]. He has the prior history of lymphocytic [...] Thanks for the consult. We will follow. Tina Lobato Pharm.D., R.Ph. - 12/04/2021 11:29 AM CDT Pharmacist [...] P.A.-C., M.S. - 12/04/2021 7:59 AM CDT [facility] Medicine 8 ([facility]) Progress Notes SUBJECTIVE The [facility] Medicine 8 ([facility]) service evaluated Mr. Castro this morning [...] Intake/Output Last 24 Hours: Date 12/03/21699 - 12/04/21 0612/04/21699 - 12/05/21 0659 Shift 8745-9066 4798-6661 9771-0167 24 Hour Total 6335-4670 7620-3974 4098-5287 24 Hour Total INTAKE P.O. 240 400 [...] lower extremities bilaterally. Coordination intact w ith uqfkdv-dj-cskg testing, rapid alternating hand movements. Negative pronator drift. Mental: Mood and affect congruent. Alert and oriented. Attention intact. No evidence of disorganizedthinking. RASS 0. 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 DIAGNOSTICS I personally reviewed labs, imaging, EMR. ASSESSMENT / PLAN Mr. Castro is hospitalized on [place] [address] ([facility]) for evaluation and management of Empyema Pleural(HCC). He was brought to the ED after he was unable to stand to get out of his car due to acute onset of lower extremity weakness. Additional workup in the ED concerning for recurrent pleural effusions/empyema as below. He is admitted to [place] [address] for further evaluation. #1 Weakness, generalized He [...] plan of care detailed above. I provided rnzu-ud-twkd counseling at bedside regarding the plan of care. The patient acknowledged an understanding and agreed with the plan of care listed above. I personally spent over half of a total 40 minutes in counseling and coordination of care as documented above. Simran Helm M.S., PA-C Pager: [phone] Jaqueline Fontanez M.D. - 12/03/2021 1:21 PM CDT Images from the original note were not included. Pleural Service/Interventional Pulmonology Service Consult Note SUBJECTIVE Referral Source: Jamal Andujar, GUEST SERVICE REPRESENTATIVE, C.N.P. Reason for Consult: Suspected empyema Interval [...] effusion. Images were saved and uploaded to [employer]. DIAGNOSTICS I have reviewed relevant laboratory, imaging, [...] pleural fluid when he was admitted to [facility] for heart failure (EF 25-30%). This pleural [...] was seen and discussed with the supervising managed services sales consultant, Dr. Jimenez. We will continue to follow. Please contact [phone] with questions or concerns. Jaqueline Moseley M.D. [facility] Fellow Associated attestation - Will Means [...] 12/03/2021 12:25 PM CDT T Medicine 8 ([facility]) Progress Notes SUBJECTIVE The [facility] Medicine 8 ([facility]) service evaluated Mr. Castro this morning [...] [62-91] 64 Intake/Output Last 24 Hours: Date 12/02/21699 - 12/03/2165812/03/21699 - 12/04/21 0659 Shift 8036-0071 4436-1005 8513-3586 24 Hour Total 4917-2165 0649-3575 3045-7927 24 Hour Total INTAKE P.O. 236 360 [...] CAM negative for acute delirium. 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 DIAGNOSTICS I personally reviewed labs, imaging, EMR. ASSESSMENT / PLAN Mr. Castro is hospitalized on [place] [address] ([facility]) for evaluation and management of Empyema Pleural(HCC). He was brought to the ED after he was unable to stand to get out of his car due to acute onset of lower extremity weakness. This is since resolved. Additional workup in the ED concerning for recurrent pleural effusions/empyema as below. He is admitted to [place] [address] for further evaluation. #1 Weakness, generalized--improving In [...] plan of care detailed above. I provided kawp-ea-yfsr counseling at bedside regarding the plan of care. The patient acknowledged an understanding and agreed with the plan of care listed above. I personally spent over half of a total 40 minutes in counseling and coordination of care as documented above. Simran Helm M.S., PA-C Pager: [phone] Diana Reed, ALONAN, LD - 12/03/2021 11:18 AM CDT Clinical Nutrition: Initial Assessment Clinical Nutrition was requested to evaluate patient for positive nursing baseline nutrition screen with a MST score of 2 or greater SUBJECTIVE Mr. Castro is a 81 y.o. male transferred from OSH for evaluation of acute weakness. CT chest [...] achalasia which patient reported has been a [place] [facility] issue. He stated he usually eats throughout [...] 1900 calories/day Method to Estimate Energy Needs: [place] (Basal + 20%) Weight Used for Equation [...] about patient's nutritional care please contact pager [phone] on weekdays or [phone] on weekends/holidays. Kasia Narayanan Pharm.D., R.Ph. - [...] regimen intensified today Kasia Narayanan PharmD, BCPS [phone] Evette Pham APRN, C.N.P., D.N.P. - 12/03/2021 [...] lab and they are looking into the xktr-po-ztiysrs on the pleural fluidglucose drawn > 24 [...] or concerns, please page the Nephrology A [place] COOK/[place] pager, [phone] or you may text page by clicking [...] team's plan of care. Ani Tariq P.T., Samia.P.T. - 2021 2:53 PM CDT 12/02/21 1453 [...] P.A.-C., M.S. - 2021 1:23 PM CDT [facility] 8 ([facility]) Progress Notes SUBJECTIVE The [facility] Medicine 8 ([facility]) service evaluated Mr. Castro this morning [...] [63-91] 63 Intake/Output Last 24 Hours: Date 12/01/21699 - 2159(Not Admitted) 12/02/21 0700 - 12/03/21 0659 Shift 8932-2024 3116-9147 0037-5854 24 Hour Total 3612-4280 4412-2457 7317-9953 24 Hour Total INTAKE Shift Total(mL/kg) OUTPUT [...] CAM negative for acute delirium. 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 DIAGNOSTICS I personally reviewed labs, imaging, EMR. ASSESSMENT / PLAN Mr. Castro is hospitalized on [place] [address] ([facility]) for evaluation and management of Empyema Pleural(HCC). He was brought to the ED after he was unable to stand to get out of his car due to acute onset of lower extremity weakness. This is since resolved. Additional workup in the ED concerning for recurrent pleural effusions/empyema as below. He is admitted to [place] [address] for further evaluation. #1 Weakness, generalized--improving He [...] plan of care detailed above. I provided onyx-rw-tigz counseling at bedside regarding the plan of care. The patient acknowledged an understanding and agreed with the plan of care listed above. I personally spent over half of a total 40 minutes in counseling and coordination of care as documented above. Simran Helm M.S., PA-C Pager: [phone] Kasia Ridley, PharmBaileyD., R.Ph. - 2021 9:48 AM CDT Pharmacist [...] until discharge from the hospital. Kasia Ridley Pharm.D., R.Ph. [phone] documented in this encounter H&P Notes Jmaal Andujar, DWIGHT, C.N.P. - 2021 1:00 AM CDT [facility] Medicine 8 ([facility]) Admission Note SUBJECTIVE CHIEF COMPLAINT Weakness [...] He sat in the recliner andwatched [employer] Game and after noted he was still very weak, thus took him to [facility]. At [place], we do not have much info, as they are not in care everywhere; he reports he had labs and a CT, was told he had fluid around his lungs, thus he was given Zosyn and Clindamycin, reports around 1999 and 2200 roughly. Reports [place] was working on trying to send him out; and eventually he was transitioned to [facility] here and directly admitted. In meeting [...] in hospital. He has no other complaints. [facility] gave him all his evening med's. I [...] mg on //Mon and 2 mg on ///Sat. ??? [DISCONTINUED] [...] I have independently reviewed the CT/CXR from [place], showing Empyema with air, in Qreads. ASSESSMENT [...] and 2200. -Ordered CT/CXR for interpretation by [place]/here. -Ordered CMP, Mg, Phos, CBCdiff, lactate, procalcitonin, [...] and walk) Disposition: Home Counseling was provided dyyz-sz-ciaw at bedside regarding the plan of care [...] fellow participated in the procedure, and the managed services sales consultant was present for the entire procedure. [...] right posterior Intercostal space: 9th Puncture method: lyyy-ltf-iipude catheter Number of attempts: 1 Drainage characteristics: [...] fellow participated in the procedure, and the managed services sales consultant was present for the entire procedure. Associated attestation - Cj Jimenez M.D. - 2021 2:42 PM CDT I was present for the entirety of the procedure(s). documented in this encounter Consult Notes Aleida Flores M.D. - 12/03/2021 3:26 PM CDT INPATIENT SUPERVISORY CONSULT NOTE Date of Consultation: 12/03/2021 Requesting Service: [facility] Medicine 8 ([facility]) This is a supervisory note for [...] leak. Patient's achalasia was diagnosed in the 1960s and he underwent his 1st myotomy surgically [...] Heller myotomy locally with Dr. Awan at [facility]. The think that this was at least [...] of? Esophageal perforation Briefly, he is from [place] Lives at home Functionally very active [...] reflux History of achalasia, diagnosed initially in 1962, status post surgical myotomy in 1968 Did [...] Please page the GI consult pager at [phone] with any questions or concerns. Ani Tariq PBaileyT., D.P.T. - 12/03/2021 12:51 PM CDT Physical Therapy Inpatient Evaluation/Treatment SUBJECTIVE Patient's Name: David Castro Referring/Attending Provider: John Paul Dockery M.D. Medical Diagnosis: Empyema Pleural (HCC) [J86.9] Reason for Referral: PT eval and treat- acute Onset Date: 12/02/21 [facility] Plan: [facility] MEDIC[facility] COM[facility] / Product Type: PPO [...] the gym Prior Mobility/Functional Transfers Level of [place]: Independent Home Living Type of Home: House [...] therapy session: during hallway mobility Outcome Measures [facility] Inpatient Short Form: -[facility] Basic Mobility (V.2) How much help from [...] 3-5 steps with a railing?: A Little -[facility] Basic Mobility (V.2) Raw Score: 22 -[facility] Basic Mobility (V.2) Standardized Score: 47.4 Interpretation: Clinicians answer the -[facility] Inpatient Short Form based on observed patient [...] admitted today with complaints of weakness for [id number] hours. He has a pertinent past medical [...] proceeded with placement of a right 12 Tajik locking loop thoracostomy tube. Post placement chest [...] 14 Ht 167.6 cm Wt 79.3 kg [id number]% BMI 28.22 kg/m?? General: pleasant, lying in bed with family at the side Pulmonary: no audible breathing, no increased work of breathing Bedside ultrasound demonstrated a moderate right pleural effusion with septations and no left pleural effusion. Images were saved and uploaded to [employer]. Bedside ultrasound demonstrating placement of guidewire for pigtail DIAGNOSTICS I have reviewed relevant laboratory, imaging, and other diagnostics as applicable to this consultation. Net C Developer CXR on CT Chest 12/01/21 compared to [...] pleural fluid when he was admitted to [facility] for heart failure (EF 25-30%) Initially we [...] was seen and discussed with the supervising managed services sales consultant, Dr. Jimenez. We will continue to follow. Please contact [phone] with questions or concerns. Jaqueline Moseley M.D. [facility] Fellow Viki Waldrop O.T., O.TCodie - 2021 1:50 PM CDT Occupational Therapy Dysphagia Evaluation/Treatment SUBJECTIVE Patient's Name: David Bello Gustaboallie Referring/Attending Provider: John Paul Dockery M.D. 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 - 2021 8:08 AM CDTAssociated [...] was reviewed with Dr. Kennedy, Nephrology A managed services sales consultant For questions or concerns, please page the Nephrology A CHUCK WAGON COOK/PA pager ([phone]). Associated attestation - Yamileth Kennedy M.D., Ph.D. [...] Xray completed post removal. Plan to discharge [facility] tomorrow. Problem: ALTERED NUTRIENT INTAKE - ADULT Goal: Nutrient intake appropriate for improving, restoring or maintaining nutritional needs Outcome: Progressing Note: Resident Engineer able to meet with patient and at [...] and video swallow ordered. Paty Pina M.S., R.N., C.M.SBaileyRNicholas - 12/06/2021 5:50 AM CDT Shift Goals: Clinical Goals for the Shift: Pt will sleep well overnight Identify possible barriers to meeting goals/advancing plan of care: none End of Shift Summary: Pt slept well overnight. CT to -20 suction. NPO since midnight for esophogram today. Electronically signed by: Paty Pina M.S., Antwan, NatalieM.SBaileyRBaileyNBailey 12/06/21 5:52 AM CDT Charito Roche R.N. [...] for possible esophagram. Paty Pina M.S., Antwan, Pablo.M.SBaileyRBaileyNBailey - 12/05/2021 5:24 AM CDT Shift Goals: Clinical Goals for the Shift: Pt will sleep well overnight Identify possible barriers to meeting goals/advancing plan of care: CT End of Shift Summary: Pt slept well overnight. No complaints of pain. CT remains to -20 suction. PD done overnight. Electronically signed by: Paty Pina M.S., Antwan, Pablo.M.SBaileyRBaileyNBailey 12/05/21 5:26 AM CDT Charito Roche R.N. [...] on suction by IP. Paty Pina M.S., Antwan, C.M.S.R.N. - 12/04/2021 5:26 AM CDT Problem: SAFETY [...] Electronically signed by: Paty Pina M.S., Antwan, C.M.S.R.NBailey 12/04/21 5:28 AM CDT Charito Roche R.N. [...] to tolerate 50% of meal. Dinah Hayden R.N. - 12/03/2021 5:41 AM CDT Shift Goals: [...] Pigtail chest tube placed and set to -[id number] continuous suction. IV Zosyn administered. Plan for [...] 81 y.o. male who presented to the [facility] ED with a chief complaint of weakness [...] both lower legs. He initially presented to [facility], then transitioned to [facility] for further care. Identified on CTperformed at [facility] to have a complex hydropneumothorax with scattered [...] Cardiovascular Disease Kayla Heredia M.D. [address] [place] [address] (Wo rk) documented as of this encounter [...] all are in the outpatients) results section. AR PLEURA DRAIN PERC Routine 2021 6:25 Empyema Pleural R esults for W IMG GUID PM CDT (HCC) this procedure Effusion Pleural are in the Hydropneumothora results x section. CONTINUOUS CYCLING Routine 2021 1:17 PERITONEAL DIALYSIS PM CDT (CCPD) AMYLASE, BF Routine 2021 10:04 Results for AM CDT this procedure are in the results section. AR THORACENTESIS Routine 2021 9:47 Effusion Pleural Resu lts for PLEURA W IMG AM CDT this procedure are in the results section. BROAD RANGE BACTERIA Timed 2021 9:36 Resu lts for PCR AND SEQUENCING AM CDT this proc edure are in the results section. CYTOLOGY NON-CORPORATE CLAIMS EXAMINER Timed 2021 9:36 Results for AM CDT [...] Renal Function Panel (12/08/2021 9:26 AM CDT) Analysis Performed At Patho logist [...] 12/08/2021 DTL 10:28 AM CDT BUN (Blood Urea 38 (H) 8 - 24 12/08/2021 DTL Nitrogen), S mg/dL 10:28 AM CDT Creatinine 4.13 (H) 0.74 - 12/08/2021 DTL 1.35 mg/dL 10:28 AM CDT eGFR-Non <15 (L) >=60 12/08/2021 DTL Black/ mL/min/BSA 10:28 AM CDT [place] Comment: ----ADDITIONAL INFORMATION---- Estimated GFR calculated using [...] CDT 10:02 AM CDT Maria G Adame P.A.-C. MBaileySBailey LAB BLOOD ADD-ON Performing Organization Address City/[facility] Phon e Number [facility] [address] [place] [address] (ABNORMAL) CBC without Differential (12/08/2021 9:26 AM CDT) [facility] AVIA Method Time Signature Hemoglobin 9.9 (L) 13.2 [...] Venous) CDT AM CDT Maria G Adame P.A.-C. MBaileySBailey LAB BLOOD ADD-ON Performing Organization Address City/[facility] Code Phon e Number [facility] - [address] [place], [place] [id number] [place] [address] (ABNORMAL) Prothrombin Time (PT) (12/08/2021 9:26 AM CDT) [facility] AVIA Method Time Signature Prothrombin 16.5 (H) 9.4 [...] Organization Address City/State/ZIP Code Phon e Number [facility] - [address] [place], [place] [address] [facility] [place] [address] Laboratories-[facility] [address] (ABNORMAL) Basic Metabolic Panel (12/07/2021 12:42 PM CDT) Analysis Performed At Patho logist Time Signature Potassium, S 3.8 3.6 - 5.2 12/07/2021 DTL mmol/L 1:56 PM CDT Sodium, S 142 135 - 145 12/07/2021 DTL mmol/L 1:56 PM CDT Chloride, S 102 98 - 107 12/07/2021 DTL mmol/L 1:56 PM CDT Bicarbonate, S 31 (H) 22 - 29 12/07/2021 DTL mmol/L 1:56 PM CDT Anion Gap 9 7 - 15 12/07/2021 DTL 1:56 PM CDT BUN (Blood Urea 40 (H) 8 - 24 12/07/2021 DTL Nitrogen), S mg/dL 1:56 PM CDT Creatinine 4.46 (H) 0.74 - 12/07/2021 DTL 1.35 mg/dL 1:56 PM CDT eGFR-Non <15 (L) >=60 12/07/2021 DTL Black/ mL/min/BSA 1:56 PM CDT [place] Comment: ----ADDITIONAL INFORMATION---- Estimated GFR calculated using [...] M.S. LAB BLOOD ADD-ON Performing Organization Address City/[facility] Phon e Number [facility] - [address] [place] [address] Laboratories-[address] (ABNORMAL) Parathyroid Hormone (PTH) (12/07/2021 12:38 PM CDT) Analysis Performed At Patho logist Time Signature Parathyroid 100 (H) 15 - 65 12/08/2021 DTL Hormone (PTH), S pg/mL 9:07 AM CDT Specimen Anatomical Collection Method Collection Time Receive d Time (Source) Location / / Volume Laterality Blood (Blood, 12/07/2021 12:38 12/08/2021 8:14 Venous) PM CDT AM CDT Shanon Turner APRN C.N.PBailey LAB BLOOD ADD-ON Performing Organization Address City/[facility] Phon e Number [facility] - 200 [place], [place] [address] [place] [address] (ABNORMAL) Hepatic Function Panel (12/07/2021 12:38 [...] Organization Address City/State/ZIP Code Phon e Number [facility] - 200 [place], [place] [address] [facility] [place] [address] Laboratories-[facility] [address] [facility] DX Chest 1 View (12/07/2021 10:19 AM [...] silhouette. Calcified tortuous aorta. Jaqueline Moseley M.D. IMG DIAGNOSTIC IMAGING AR OCEDURES (ABNORMAL) Prothrombin Time (PT) (12/07/2021 8:06 AM CDT) [facility] gist Method Time Signature Prothrombin 16.8 (H) 9.4 [...] Organization Address City/State/ZIP Code Phon e Number [facility] - 200 [place], [place] [address] [facility] [place] [address] Laboratories-[facility] 200 [facility] [place] Esophagram Single Contrast (12/06/2021 2:03 PM CDT) [...] SINGLE CONTRAST COMPARISON: ??Esophagram 09/17/2018. 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 right pleural [...] Renal Function Panel (12/06/2021 4:17 AM CDT) Analysis Performed At Patho logist [...] 12/06/2021 DTL 5:40 AM CDT BUN (Blood Urea 40 (H) 8 - 24 12/06/2021 DTL Nitrogen), S mg/dL 5:40 AM CDT Creatinine 4.52 (H) 0.74 - 12/06/2021 DTL 1.35 mg/dL 5:40 AM CDT eGFR-Non <15 (L) >=60 12/06/2021 DTL Black/ mL/min/BSA 5:40 AM CDT [place] Comment: ----ADDITIONAL INFORMATION---- Estimated GFR calculated using [...] Organization Address City/State/ZIP Code Phon e Number [facility] - [address] [place], [place] [address] [facility] [place] [address] Laboratories-[facility] [address] (ABNORMAL) Prothrombin Time (PT) (12/06/2021 4:17 AM CDT) [facility] gist Method Time Signature Prothrombin 22.9 (H) 9.4 [...] 4:42 Venous) CDT AM CDT Simran Helm P.A.-C. M.S. LAB BLOOD ADD-ON Performing Organization Address [facility] Phon e Number [facility] - [id number] [place] [address] Broad Range Bacteria PCR+Sequencing (12/05/2021 10:03 AM CDT) Component Value Ref Test Analysis Performed At Patholo gist Range Method Time Signature Broad Range No bacterial DNA detected. 12/07/2021 DTL Bacteria This test was developed and its performance characteri stics 2:17 PM CDT PCR+Sequencin determined by [facility] in a manner consistent with g [...] - GENERAL O RDERABLES Performing Organization Address [facility] Phon e Number [facility] - 200 [place], [place] [address] [facility] [place] [address] [facility]-[address] (ABNORMAL) Renal Function Panel (12/05/2021 8:34 AM CDT) Analysis Performed At Patho logist Time Signature Potassium, S 3.8 3.6 - 5.2 12/05/2021 DTL mmol/L 9:25 AM CDT Sodium, S 138 135 - 145 12/05/2021 DTL mmol/L 9:25 AM CDT Chloride, S 101 98 - 107 12/05/2021 DTL mmol/L 9:25 AM CDT Bicarbonate, S 28 22 - 29 12/05/2021 DTL mmol/L 9:25 AM CDT Anion Gap 9 7 - 15 12/05/2021 DTL 9:25 AM CDT BUN (Blood Urea 41 (H) 8 - 24 12/05/2021 DTL Nitrogen), S mg/dL 9:25 AM CDT Creatinine 4.30 (H) 0.74 - 12/05/2021 DTL 1.35 mg/dL 9:25 AM CDT eGFR-Non <15 (L) >=60 12/05/2021 DTL Black/ mL/min/BSA 9:25 AM CDT [place] Comment: ----ADDITIONAL INFORMATION---- Estimated GFR calculated using [...] Organization Address City/State/ZIP Code Phon e Number [facility] - [address] [place], [place] [address] [facility] [place] [address] Laboratories-[facility] [address] Connective Tissue Diseases [place] (12/05/2021 8:34 AM CDT) P athologist Signature Antinuclear Ab, 0.4 <=1.0 12/06/2021 [facility] S (Negative) 1:12 PM CDT U Comment: ----ADDITIONAL INFORMATION---- Method: Enzyme-linked immunoassay using HEp-2 nuclear extract supplemented with purified antig ens. Cyclic Citrullinated <15.6 <20.0 (Negative) U 12/06/2021 10:49 AM [facility] Peptide Ab, S CDT Interpretation SEE COMMENT 12/06/2021 1:12 PM [facility] CDT Comment: Tests for antibodies to dsDNA and SHREYAS an tigens are not performed automatically unless the TANVIR r esult is > or = 3.0 U. ??Studies performed at [facility] indicate that positive TANVIR results <3.0 U are rarely a ccompanied by positive second order tests. Specimen Anatomical Collection Method Collection Time Receive d Time (Source) Location / / Volume Laterality Blood (Blood, 12/05/2021 8:34 AM 12/07/19 7:51 Venous) CDT AM CDT Simran Helm P.A.-C., M.S. LAB BLOOD ADD-ON Performing Organization Address City/State/ZIP Code Phon e Number [facility] [address] [place], [place] [address] [facility] [place] [address] Laboratory Medicine and Pathology [address] [place] (ABNORMAL) Prothrombin Time (PT) (12/05/2021 8:34 AM CDT) Patholo gist Method Time Signature Prothrombin 29.4 (H) 9.4 [...] Volume Laterality Blood (Blood, 12/05/2021 8:34 AM 04/17/20 22 8:54 Venous) CDT AM CDT Simran Helm P.A.-C., M.S. LAB BLOOD ADD-ON Performing Organization Address City/State/ZIP Code Phon e Number [facility] - [address] [place], [place] [address] [facility] [place] [place] [address] Laboratories-[facility] [address] DX Chest AP or PA and Lateral [...] PROCEDURES Amylase, Total (12/04/2021 7:19 AM CDT) P athologist Signature Amylase, Total, 86 28 - 100 12/04/2021 DTL S U/L 8:38 AM CDT Specimen Anatomical Collection Method Collection Time Receive d Time (Source) Location / / Volume Laterality Blood (Blood, 12/04/2021 7:19 AM 12/05/19 8:12 Venous) CDT AM CDT Simran Helm P.A.-C., M.S. LAB BLOOD ADD-ON Performing Organization Address City/State/ZIP Code Phon e Number [facility] - [address] [place], [place] [address] [facility] [place] [address] Laboratories-[facility] [address] (ABNORMAL) Renal Function Panel (12/04/2021 7:19 AM CDT) Analysis Performed At Patho logist Time Signature Potassium, S 4.1 3.6 - 5.2 12/04/2021 DTL mmol/L 8:38 AM CDT Sodium, S 139 135 - 145 12/04/2021 DTL mmol/L 8:38 AM CDT Chloride, S 101 98 - 107 12/04/2021 DTL mmol/L 8:38 AM CDT Bicarbonate, S 27 22 - 29 12/04/2021 DTL mmol/L 8:38 AM CDT Anion Gap 11 7 - 15 12/04/2021 DTL 8:38 AM CDT BUN (Blood Urea 45 (H) 8 - 24 12/04/2021 DTL Nitrogen), S mg/dL 8:38 AM CDT Creatinine 4.11 (H) 0.74 - 12/04/2021 DTL 1.35 mg/dL 8:38 AM CDT eGFR-Non <15 (L) >=60 12/04/2021 DTL Black/ mL/min/BSA 8:38 AM CDT [place] Comment: ----ADDITIONAL INFORMATION---- Estimated GFR calculated using [...] Organization Address City/State/ZIP Code Phon e Number [facility] - [address] [place], [place] [address] [facility] [place] [place] [address] Laboratories-[facility] [address] (ABNORMAL) Prothrombin Time (PT) (12/04/2021 7:19 AM CDT) [facility] gist Method Time Signature Prothrombin 35.4 [...] Organization Address City/State/ZIP Code Phon e Number [facility] - [address] [place] [address] [facility] [place] [address] Laboratories-[facility] [address] [facility] [address] Chest with IV Contrast (12/03/2021 3:36 [...] CBC without Differential (12/03/2021 9:26 AM CDT) [facility] Method Time Signature Hemoglobin 10.9 (L) 13.2 [...] M.S. LAB BLOOD ADD-ON Performing Organization Address City/State/[facility] Code Phon e Number [facility] - [address] [place] [address] [facility] [place] [address] Laboratories-[facility] [address] [facility] (ABNORMAL) Electrophoresis, Protein (12/03/2021 8:21 AM CDT) [facility] Method Time Signature Total Protein, 5.8 (L) [...] Laterality Blood (Blood, 12/03/2021 8:21 AM 12/04/19 Venous) CDT 10:53 AM CDT Simran Helm P.A.-C., M.S. LAB BLOOD ADD-ON Performing Organization Address City/State/ZIP Code Phon e Number [facility] [address] [place], [place] [address] [facility] [place] [address] Laboratory Medicine and Pathology [address] [place] (ABNORMAL) Basic Metabolic Panel (12/03/2021 8:21 AM CDT) Analysis Performed At Patho logist [...] 12/03/2021 DTL 9:32 AM CDT BUN (Blood Urea 50 (H) 8 - 24 12/03/2021 DTL Nitrogen), S mg/dL 9:32 AM CDT Creatinine 4.09 (H) 0.74 - 12/03/2021 DTL 1.35 mg/dL 9:32 AM CDT eGFR-Non <15 (L) >=60 12/03/2021 DTL Black/ mL/min/BSA 9:32 AM CDT [place] Comment: ----ADDITIONAL INFORMATION---- Estimated GFR calculated using [...] Organization Address City/State/ZIP Code Phon e Number [facility] - [address] [place] [address] [facility] [place] [address] Laboratories-[facility] [address] [facility] (ABNORMAL) CBC with Differential, Blood (12/03/2021 8:21 AM CDT) [facility] Method Time Signature Hemoglobin 10.2 (L) 13.2 [...] Blood (Blood, 12/03/2021 8:21 AM 12/04/19 22 8:53 Venous) CDT AM CDT Simran Helm P.A.-C., M.S. LAB BLOOD ADD-ON Performing Organization Address City/[facility] Phon e Number [address] (ABNORMAL) Prothrombin Time (PT) (12/03/2021 8:21 AM CDT) [facility] gist Method Time Signature Prothrombin 40.5 (H) 9.4 - 12.5 12/03/2021 DTL Time, P sec 9:17 AM CDT INR 3.6 0.9 - 1.1 12/03/2021 DTL 9:17 AM CDT Comment: ----ADDITIONAL INFORMATION---- Standard intensity warfarin therapeutic range: 2.0 to 3.0 ?? High intensity warfarin therapeutic rang e: 2.5 to 3.5 Specimen Anatomical Collection Method Collection Time Receive d Time (Source) Location / / Volume Laterality Blood (Blood, 12/03/2021 8:21 AM 12/04/19 22 8:54 Venous) CDT AM CDT Simran Helm P.A.-C., M.S. LAB BLOOD ADD-ON Performing Organization Address City/[facility] Phon e Number [address] [place] [address] DX Chest Portable 1 View (12/03/2021 7:47 [...] normal. Mitral annulus calcification. Jaqueline Moseley M.D. IMMike DIAGNOSTIC IMAGING AR OCEDURES DX Chest Portable 1 View (2021 [...] view. Jaqueline Moseley M.D. IMG DIAGNOSTIC IMAGING AR OCEDURES AR PLEURA DRAIN PERC W IMG GUID (2021 [...] fellow participated in the procedure, and the managed services sales consultant was present for the entire procedure. [...] atio <1.0. All other fluids refer to [email or web address] for further inter pretive information. This test has been modified from the man sarah bethr's instructions. Its performance characteri stics were determined by [facility] in a manner consistent wi CLIA requirements. This test has not been cleared or approv ed by the U.S. Food and Drug Administration. Fluid Type, Amylase PLEURAL 2021 11:27 AM CDT DT Specimen Anatomical Collection Method Collection Time Receive d Time (Source) Location / / Volume Laterality Fluid (Pleural 2021 10:04 2 Fluid, Right) AM CDT 11:27 AM CDT Max Royal M.D. LAB BODY FLUIDS AND STOOLS O RDERABLES Performing Organization Address City/State/ZIP Code Phon e Number [facility] - [address] [place], [place] [address] [facility] [place] [address] Laboratories-[facility] [address] AR THORACENTESIS PLEURA W IMG (2021 9:47 AM CDT) Cj Recio J, M.D. - 2021 9:47 A M CDT Jaqueline Fontanez M.D. ? 2021 ??9:49 AM Thoracentesis Date/Time: 2021 9:47 AM Performed by: Jaqueline Fontanez M.D. Authorized by: Jaqueline Fontanez M.D. Care team members present 1. Cj Jimenez M.D. PROCEDURE DETAILS Patient position: sitting Location: right posterior Intercostal space: 9th Puncture method: [id number] cathete r Number of attempts: 1 Drainage [...] fellow participated in the procedure, and the managed services sales consultant was present for the entire procedure. Jaqueline Moseley M.D. PROCEDURE/MINOR SURGICAL ORDERABLES Broad Range Bacteria PCR+Sequencing (2021 9:36 AM CDT) Component Value Ref Test Analysis Performed At Patholo gist Range Method Time Signature Broad Range No bacterial DNA detected. 12/07/2021 DTL Bacteria This test was developed and its performance characteri stics 2:15 PM CDT PCR+Sequencin determined by [facility] in a manner consistent with g CLIA requirements. This test has not been cleared or approved by the U.S. Food and Drug Administration. Specimen Anatomical Collection Method Collection Time Receive d Time (Source) Location / / Volume Laterality Pleural Fluid, 2021 9:36 AM 022 Right CDT 11:28 AM CDT Comment: Specimen Source Site: Fluid Narrative [facility] - 12/07/2021 2:15 PM CDT Bacterial Culture: Received Bactec aerob ic and Bactec anaerobic bottles Cj Jimenez M.D. LAB MICROBIOLOGY - GENERAL O RDERABLES Performing Organization Address City/State/ZIP Code Phon e Number [facility] - [address] [place] [address] [facility] [place] [address] [facility] [address] Glucose, Body Fluid (2021 9:36 AM CDT) [...] of infection. All other fluids refer to [email or web address] for further inter pretive information. This test has been modified from the jose knight's instructions. Its performance characteri stics were determined by [facility] in a manner co nsistent with [...] AND STOOLS O [place] Performing Organization Address City/[facility] Phon e Number [facility] - 200 [place], [place] [address] [facility] DTL [address] pH, Pleural Fluid (2021 9:36 AM CDT) [facility] Method Time Signature pH, Pleural 7.27 Not Applicable 2021 [facility] Fl[facility] pH 9:59 AM CDT Comment: Clinical guidelines suggest that in para pneumonic pleural effusions, a pH <7.2 indicate the need for tube drainage . Specimen Anatomical Collection Method Collection Time Receive d Time (Source) Location / / Volume Laterality Fluid (Pleural 2021 9:36 AM 022 9:56 Fluid, Right) CDT AM CDT Cj Jimenez M.D. LAB BODY FLUIDS AND STOOLS [place] IBRAHIM Performing Organization Address City/[facility] Phon e Number [facility] - [address] [place] [address] [facility] [place] [address] Fungal Culture, Routine (2021 9:36 AM CDT) [facility] Method Time Signature Fungal No growth 12/26/2021 DTL Culture, after 24 1:01 PM CDT Routine days of incubation. Specimen Anatomical Collection Method Collection Time Receive d Time (Source) Location / / Volume Laterality Fluid (Pleural 2021 9:36 AM 022 Fluid, Right) CDT 11:28 AM CDT Comment: Specimen Source Site: Fluid Narrative [facility] - [facility] - 12/26/2021 1:01 PM CDT Bacterial Culture: Received Bactec aerob ic and Bactec anaerobic bottles Cj Jimenez M.D. LAB MICROBIOLOGY - GENERAL O [place] Performing Organization Address City/[facility]/ZIP Code Phon e Number [facility] - 200 [place], [place] [address] [facility] [place] [place] [address] [facility] [address] [facility] Fungal Smear (2021 9:36 AM CDT) P athologist Signature Fungal Smear Negative. 2021 DTL 1:56 PM CDT Specimen Anatomical Collection Method Collection Time Receive d Time (Source) Location / / Volume Laterality Fluid (Pleural 2021 9:36 AM 022 Fluid, Right) CDT 11:28 AM CDT Comment: Specimen Source Site: Fluid Narrative [facility] - 2021 1:56 PM CDT Bacterial Culture: Received Bactec aerob ic and Bactec anaerobic bottles Cj Jimenez M.D. LAB MICROBIOLOGY - GENERAL O [place] Performing Organization Address City/State/ZIP Code Phon e Number [facility] [address] [place], [place] [address] [facility] [place] [address] Cytology Non-CORPORATE CLAIMS EXAMINER (2021 9:36 AM CDT) Component Value Ref Test Analysis Performed At [facility] gist Range Method Time Signature 12/03/2021 DTL [...] LAB SURG PATH ORDERABLES Performing Organization Address City/State/ZIP Code Phon e Number [facility] [address] [place], [place] [address] [facility] [place] [address] [facility] [address] Cell Count and Differential, Body Fluid (2021 9:36 AM CDT) [facility] gist Method Time Signature Fluid Type Right 2021 [facility] Pleural-Tho 12:45 PM CDT racentesis Gross Bloody 2021 [facility] Appearance 12:45 PM CDT Total Nucleated 1976 /mcL 2021 [facility] Cells 12:45 PM CDT Comment: ----REFERENCE VALUE---- Synovial: <150 /mcL Peritoneal: <500 /mcL Pleural: <500 /mcL Pericardial: <500 /mcL ----ADDITIONAL INFORMATION---- This test has been modified from the man ufacturer's instructions. Its performance characteri stics were determined by [facility] in a manner co nsistent with CLIA requirements. This test has not bee n cleared or approved by the U.S. Food and Drug Admin istration. Neutrophils 2 % 2021 12:45 PM CDT DHPM Comment: ----REFERENCE VALUE---- Synovial: <25% Peritoneal: <25% Pleural: <25% Pericardial: <25% Lymphocytes 78 Synovial <75% % 2021 12:45 PM CD T [facility] Monocytes/Macrophages 20 Synovial <70% % 2021 1 2:45 PM CDT [facility] Comment SeeComment 2021 12:45 PM CDT DHPM Comment: Cytology concurrently ordered; see separate report. Reviewed by: Tech 2021 12:45 PM CDT DHP M Specimen Anatomical Collection Method Collection Time Receive d Time (Source) Location / / Volume Laterality Fluid (Pleural 2021 9:36 AM 022 Fluid, Right) CDT 11:25 AM CDT Cj Jimenez M.D. LAB BODY FLUIDS AND STOOLS O [place] Performing Organization Address City/State/ZIP Code Phon e Number [facility] - [address] [place], [place] [address] [place] [address] [facility] [address] [facility] Bacterial Culture, Aerobic + Susc (2021 9:36 AM CDT) [facility] Method Time Signature Bacterial No growth 12/07/2021 DTL Culture, after 5 8:50 AM CDT Aerobic + Susc days of incubation. Specimen Anatomical Collection Method Collection Time Receive d Time (Source) Location / / Volume Laterality Fluid (Pleural 2021 9:36 AM 022 Fluid, Right) CDT 11:28 AM CDT Comment: Specimen Source Site: Fluid Narrative [facility] - 12/07/2021 8:50 AM CDT Bacterial Culture: Received Bactec aerob ic and Bactec anaerobic bottles Cj Jimenez M.D. LAB MICROBIOLOGY - GENERAL O [place] Performing Organization Address City/[facility]/ZIP Code Phon e Number [facility] [address] [place], [place] [address] [place] [address] [facility] [address] [facility] Gram Stain (2021 9:36 AM CDT) [facility] Method Time Signature Gram Stain No organisms seen. 2021 DTL White blood cells present. 12:20 PM CDT Specimen Anatomical Collection Method Collection Time Receive d Time (Source) Location / / Volume Laterality Fluid (Pleural 2021 9:36 AM 022 Fluid, Right) CDT 11:28 AM CDT Comment: Specimen Source Site: Fluid Narrative [facility] - 2021 12:20 PM CDT Bacterial Culture: Received Bactec aerob ic and Bactec anaerobic bottles Cj Jimenez M.D. LAB MICROBIOLOGY - GENERAL O RDERABLES Performing Organization Address City/State/ZIP Code Phon e Number [facility] [address] [place], [place] [address] [place] [address] [facility] [address] Protein, Total, Body Fluid (2021 9:36 AM [...] ical findings. All other fluids refer to [email or web address][email or web address] for further inter pretive information. This test has been modified from the insurance agents supervisor's instructions. Its perform ance characteristics were determined by [facility] in a manner consistent with CLIA require ments. This test has not been cleared or approv ed by the U.S. Food and Drug Administration. Fluid Type, Protein, Total Fluid, Pleural Fluid, 0 2021 11:09 AM CDT DT Right Specimen Anatomical Collection Method Collection Time Receive d Time (Source) Location / / Volume Laterality Fluid (Pleural 2021 9:36 AM 022 Fluid, Right) CDT 12:24 PM CDT Cj Jimenez M.D. LAB BODY FLUIDS AND STOOLS O RDERABLES Performing Organization Address City/State/ZIP Code Phon e Number [facility] [address] [place], [place] [address] [place] [address] [facility] [address] Lactate Dehydrogenase (LD), Body Fluid (2021 9:36 AM CDT) Patholo gist Method Time Signature Lactate 343 See Comment [...] clinical findings. All other fluids refer to [email or web address] for further interpretive information. This test has been modified from the man ufacturer's instructions. Its performance characteristics were det ermined by [facility] in a manner consistent with CLIA [...] Organization Address City/State/ZIP Code Phon e Number [facility] - [address] [place], [place] [address] [facility] [place] [address] [facility] [address] Interpretation of [...] ossifications. Eso phageal hiatal hernia. Jamal Andujar APRN C.N.P. [facility] DIAGNOSTIC IMAGING PROC EDURES Interpretation of Outside [...] Jamal Andujar APRN, C.N.P. IMG CT PROCEDURES (ABNORMAL) Prothrombin Time (PT) (2021 1:01 AM CDT) Patholo gist Method Time Signature Prothrombin 33.3 (H) 9.4 - 12.5 2021 [facility], P sec 1:15 AM CDT INR 3.0 0.9 - 1.1 2021 [facility] 1[facility]15 AM CDT Comment: ----ADDITIONAL INFORMATION---- Standard [...] Organization Address City/State/ZIP Code Phon e Number [facility] [address] [place], [place] [address] [place] [address] [facility] [address] (ABNORMAL) Procalcitonin (2021 1:01 AM CDT) P athologist Signature Procalcitonin, 0.18 (H) <=0.08 2021 DTL S ng/mL 2:04 AM CDT Specimen Anatomical Collection Method Collection Time Receive d Time (Source) Location / / Volume Laterality Blood (Blood, 2021 1:01 AM 12/03/19 1:35 Venous) CDT AM CDT Natalie Strong APRNN.P. LAB BLOOD ADD-ON Performing Organization Address City/[facility] Phon e Number [facility] - [address] [place], [place] [address] [place], [place] [phone] [place] [address] Lactate (2021 1:01 AM CDT) athologist Signature Lactate, P 1.1 0.5 - 2.2 2021 DTL mmol/L 1:48 AM CDT Specimen Anatomical Collection Method Collection Time Receive d Time (Source) Location / / Volume Laterality Blood (Blood, 2021 1:01 AM 12/03/19 1:35 Venous) CDT AM CDT Jamal Andujar APRN, Pablo.N.P. LAB BLOOD NON ADD-ON Performing Organization Address City/[facility]/ZIP Code Phon e Number [facility] - [address] [place], [place] [address] [place] [id number] [place] [address] [address] [facility] Phosphorus Inorganic (2021 1:01 AM CDT) athologist Signature Phosphorus 3.8 2.5 - 4.5 2021 DTL (Inorganic), S mg/dL 2:04 AM CDT Specimen Anatomical Collection Method Collection Time Receive d Time (Source) Location / / Volume Laterality Blood (Blood, 2021 1:01 AM 12/03/19 1:35 Venous) CDT AM CDT Jamal Andujar APRN, Pablo.N.P. LAB BLOOD ADD-ON Performing Organization Address City/State/ZIP Code Phon e Number [facility] - [address] [place], [place] [address] [place], [place] [phone] [place] [address] Magnesium (2021 1:01 AM CDT) athologist Signature Magnesium, S 1.8 1.7 - 2.3 2021 DTL mg/dL 2:04 AM CDT Specimen Anatomical Collection Method Collection Time Receive d Time (Source) Location / / Volume Laterality Blood (Blood, 2021 1:01 AM 12/03/19 1:35 Venous) CDT AM CDT Jamal Andujar APRN, C.N.P. LAB BLOOD ADD-ON Performing Organization Address City/State/ZIP Code Phon e Number [facility] - [address] [place], [place] [address] [facility] [place] [address] [facility] [address] [facility] (ABNORMAL) Comprehensive Metabolic Panel (2021 1:01 AM CDT) Analysis Performed At Patho logist Time Signature Potassium, S 3.2 (L) 3.6 - 5.2 2021 DTL mmol/L 1:58 AM CDT Sodium, S 140 135 - 145 2021 DTL mmol/L 1:58 AM CDT Chloride, S 101 98 - 107 2021 DTL mmol/L 1:58 AM CDT Bicarbonate, S 25 22 - 29 2021 DTL mmol/L 1:58 AM CDT Anion Gap 14 7 - 15 2021 DTL 1:58 AM CDT BUN (Blood Urea 51 (H) 8 - 24 2021 DTL Nitrogen), S mg/dL 1:58 AM CDT Creatinine 3.66 (H) 0.74 - 2021 DTL 1.35 mg/dL 1:58 AM CDT eGFR-Non <15 (L) >=60 2021 DTL Black/ mL/min/BSA 1:58 AM CDT [place] Comment: ----ADDITIONAL INFORMATION---- Estimated GFR calculated using [...] 1:37 Venous) CDT AM CDT Jamal Andujar APRN, C.N.P. LAB BLOOD ADD-ON Performing Organization Address City/State/ZIP Code Phon e Number [facility] - [address] [place], [place] [address] [facility] [place] [address] [facility] [address] [facility] (ABNORMAL) CBC with Differential, Blood (2021 1:01 AM CDT) [facility] gist Method Time Signature Hemoglobin 10.1 [...] 1:09 Venous) CDT AM CDT Jamal Andujar APRN C.N.P. LAB BLOOD ADD-ON Performing Organization Address City/State/[facility] Code Phon e Number [facility] - [address] [place] [address] [address] [place] [address] [facility] [address] [facility] (ABNORMAL) GGT (Gamma-Glutamyltransferase) (2021 12:57 AM CDT) Component Value Ref Test Analysis Performed At [facility] gist Range Method Time Signature Gamma 169 (H) 8 - 61 2021 DTL Glutamyltransferase U/L 2:20 PM CDT (GGT), S Specimen Anatomical Collection Method Collection Time Receive d Time (Source) Location / / Volume Laterality Blood (Blood, 2021 12:57 2021 1:48 Venous) AM CDT PM CDT Brandee Gerber P.A.-C.S. LAB BLOOD ADD-ON Performing Organization Address City/State/ZIP Code Phon e Number [facility] [address] [place], [place] [address] [facility] [address] [facility] [address] [...] dose on Mon12/03/21 at 0800, Daily on // only. Given 12/06/2021 4:03 PM CDT 0.25 mcg Given 12/06/2021 7:58 AM CDT 0.25 mcg calcitRIOL capsule 0.25 mcg (ROCALTROL) Given 12/08/2021 8:13 AM CDT 0.25 mcg 0.25 mcg, oral, 3 times weekly (Once per day on Mon), First dose (after last modification) on Mon12/08/21 at 0900, Daily on // only. diclofenac sodium 1 % gel 2 [...] mEq (KLORCON/K-TAB) 40 mEq, oral, Once, On Mon12/02/21 at 0230, For 1 dose, Swallow whole. Do NOT crush, chew, or split tablet. torsemide tablet 40 mg (DEMADEX) Given 12/06/2021 8:01 AM CDT 40 mg 40 mg, oral, Daily, First dose on Mon12/02/21 at 0900 Given 12/05/2021 9:03 AM CDT 40 mg Given 12/04/2021 10:39 AM CDT 40 mg warfarin management (COUMADIN) oral, Daily, First dose on Mon12/02/21 at 1130, Pharma cist to Dose: Yes, [...] 0.5 mg 0.5 mg, oral, Once, On 12/05/21 at 1700, For 1 dose, HAZARDOUS - Handle with care. Swallow whole. Do NOT chew or split tablet. May crush using the RxCrush system. warfarin tablet 1 mg (COUMADIN) Given 12/06/2021 5:40 PM CDT 1 mg 1 mg, oral, Once, On 12/06/21 at 1700, For 1 dose, HAZARDOUS - Handle with care. Swallow whole. Do NOT chew or split tablet. May crush using the RxCrush system. warfarin tablet 1.5 mg (COUMADIN) Given 12/07/2021 5:17 PM CDT 1.5 mg 1.5 mg, oral, Once, On 12/07/21 at 1700, For 1 dose documented in [...] mg (AUGMEN TIN) 0850 (Given - Provider: Anita Hill R.N.) 500 mg (1 tablet), oral, Every 24 hours scheduled, First dose on Mon12/08/21 at 0900, For 17 days, Drug Monitoring Program: Pharmacist to adjust medication dosing based on indication and drug clearance factors., Indications: Respiratory tract infection, community ac quired calcitRIOL capsule 0.25 mcg (ROCALTROL) (CANCELED) 075 8 (Given - Provider: Yadi Lewis R.N.)1603 (Given - Provider: Yadi Lewis R.N.)2130 (Given - Provider: Yohan Edgar R.N.) 0.25 [...] Provider: Yadi Lewis R.N. - Reason: Patient/family refused)2131 (Not Given - Provider: Yohan Edgar R.N. - Reason: Patient/family refused) 162 (Not Given - Provider: Yadi Lewis R.N. - Reason: Patient/family refused)2140 (Not Given - Provider: Yohan Edgar R.N. - Reason: Patient/family refused) ng card after use and save for each administration. gentamicin 0.1 % cream 1 application (GARAMYCIN) 2129 (Not Given - Provider: Yohan Edgar R.N. - Reason: Other) 802 (Given - Provider: Yadi Lewis R.N.) 08 (Not Given - Provider: Anita bellamy R.N. [...] (Given - Provider: Paty Pina M.S., R.N., EduardoS.R.N.)1122 (Given - Provider: Yadi Lewis R.N.)1603 (Given - Provider: Yadi Lewis R.N.) 0652 (Given - Provider: Yohan Edagr R.N.)1132 (Given - Provider: Yadi Lewis R.N.) [...] R.N.)213 (Given - Provider: Yohan Edgar R.N.) 0802 (Given - Provider: Yadi Lewis R.N.) 25 mg, oral, 2 times daily, First dose o n Mon12/02/21 at 0900, HOLD for SBP < 90 or HR < 55 and notify service metoprolol tartrate tablet 25 mg (LOPRESSOR) 214 (Given - Provider: Yohan Edgar R.N.) 0813 (Given - Provider: Anita Hill RBaileyNBailey) 25 mg, oral, 2 times daily, First dose ( after last modification) on Mon12/07/21 at 2100, HOLD for SBP < 90 or HR < 55 and notify service multivitamin renal failure 100-1 mg 1 tablet (DIALYVIT E) 1603 (Given - Provider: Yadi Lewis RNicholas) 1625 (Given - Provider: Yadi Lewis R.N.) 1 tablet, oral, Daily with dinner, First dose on Mon12/03/21 at 1700, give after dialysis on dialysis days pantoprazole DR tablet 40 mg (PROTONIX) 0642 (Given - Provider: Paty Pina, M.Paola., R.N., Pablo.BrandeeS.R.N.) 0652 (Given - Provider: Yohan lemons, R.N.) [...] (COMPLETED) 1932 (Given - Provider: Elmo Marie RNicholas) intraperitoneal, Once, On Mon12/06/21 at 1800, For 1 dose, Scheduling/ADT, Refer to: Continuous Cycling Peritoneal Dialysis (CCPD) order for therapy details PD 1.5 % dextrose Low Ca 2.5 mEq/L- Mg 0 .5 mEq/L 2,000 mL dialysis solution (COMPLETED) 2002 (Given - Provider: Flo Cope R BaileyNBailey) intraperitoneal, Once, On Mon12/07/21 at 1800, For [...] solution (COMPLETED) 2002 (Given - Provider: Trang MaresNBailey) intraperitoneal, Once, On Mon12/07/21 at 1800, For 1 dose, Scheduling/ADT, Refer to: Continuous Cycling Peritoneal Dialysis (CCPD) order for therapy details piperacillin-tazobactam in dextrose (iso-osm) IVPB 2.2 5 g (ZOSYN) (CANCELED) 0758 (New Bag - Provider: Yadi Lewis R.N.)1603 (New Bag - Provider: Yadi Lewis R.N.) 0018 (New Bag - Provider: Yohan bui RBaileyNBailey)0758 (New Bag - Provider: Yadi Lewis R.N.)1625 [...] Patient/family refused) 0808 (Not Given - Provider: Suzy EspinalNBailey - Reason: Patient/family refused) 17 g, oral, [...] 0640 (Held by provider - Provider: Andra Benson P.A.-C. - Reason: Other - Comment: Per Neph)0900 (Dose Auto Held - Provider: Marlyn Benson P.A.-C.) 0900 (Not Given - Provider: Anita bellamy R.N. - Reason: See Provider Order)1613 (Unheld by provider - Provider: Discharge Provider, Automatic) 40 mg, oral, Daily, First dose on Mon12/02/21 at 0900 warfarin management (COUMADIN) 1700 (Due) 1700 (Due) oral, Daily, First dose on Mon12/02/21 a t 1130, Pharmacist to Dose: Yes, Target INR: 2 - 3, Comorbidities that constitute Warfarin Sensitivity: Poor nutrition state (e.g., several days or more of signif icantly reduced dietary intake), Indicat ion: Atrial fibrillation (AF), Therapy type: Resume Warfarin therapy warfarin tablet 1 mg (COUMADIN) (COMPLETED) 174 (Give n - Provider: Yadi Lewis R.N.) 1 mg, oral, Once, On Mon12/06/21 at 1700 , For 1 dose, HAZARDOUS - Handle with care. Swallow whole. Do NOT chew or split tablet. May crush using the RxCrush system. warfarin tablet 1.5 mg (COUMADIN) (COMPLETED) 171 (Given - Provider: Yadi Lewis R.N.) 1.5 mg, oral, Once, On Mon12/07/21 at 1700, For 1 dose PRN Medication Order 12/06/2021 12/07/2021 12/08/2021 calcium carbonate chewable tablet 400 mg of calcium (TUMS) 400 mg of calcium, oral, Every 2 hour AR N, heartburn, indigestion, Starting on Mon12/02/21 at 0059, Doses listed are in mg of elemental calcium. Take with food. 500 mg calcium carbonate contains 200 mg of elemental calcium. iohexoL 300 mg iodine/mL solution (OMNIPAQUE) (COMPLET ED) 1402 (Given - Provider: Glenn Spencer M.D.) Code/trauma/sedation medication, Starting on Mon12/06/21 at 1402 documented in this encounter
--- OUTSIDE RECORDS SUMMARY | 2022-04-13 21:46 | XMS_ITS | Encounter Summary ---
:1940 Author Organization [facility] Address [address] [place] [address] Care Team Providers Name Role Phone Unavailable Primary Care Provider Unavailable Encounter Details Date Type Department Care Team Description 2021 Ancillary Procedure Department of Radiology Gavin Andujar, in [facility] Natalie queen APRNN.P. [address] [facility] [address] [place] [address] [place] [address] Social History Tobacco Use Types Packs/Day Years [...] or relatives? How often do you attend judaism or baptist More than 4 time s per year 04/11/2022 services? Do you belong to any clubs or organizations Yes 04/11/2022 such as judaism groups, unions, fraternal or athletic groups, or [...] Cardiovascular Disease Kayla Heredia M.D. [address] [place] [address] (Wo rk) documented as of this encounter [...]
--- OUTSIDE RECORDS SUMMARY | 2022-04-13 21:46 | XMS_ITS | Encounter Summary ---
:1940 Author Organization [facility] Address [address] [place] [address] Care Team Providers Name Role Phone Unavailable [...] How often do you attend moravian or moravian More than 4 time s per year 04/11/2022 services? Do you belong to any clubs or organizations Yes 04/11/2022 such as moravian groups, unions, fraternal or [...] Cardiovascular Disease Kayla Heredia M.D. [address] [place] [address] (Wo rk) documented as of this encounter [...]
--- OUTSIDE RECORDS SUMMARY | 2022-04-13 21:46 | XMS_ITS | Encounter Summary ---
:1940 Author Organization [facility] Address [address] [place] [address] Care Team Providers Name Role Phone Unavailable [...] How often do you attend judaism or jewish More than 4 time s per year [...] Cardiovascular Disease Kayla Heredia M.D. [address] [place] [address] (Wo rk) documented as of this encounter [...]
--- OUTSIDE RECORDS SUMMARY | 2022-04-13 21:46 | XMS_ITS | Encounter Summary ---
:1940 Author Organization [facility] Address [address] [place] [address] Care Team Providers Name Role Phone Unavailable [...] Stage 4 Glomerular Filtration Rate 15-29 (HCC) [facility] Laura GranadosB.S. [address] [place] [address] Referral ID Status Reason Start Date Expiration Date Visits Requ ested Visits Authorized [id number] Closed 02/14/2019 02/14/2020 1 1 Encounter Details Date Type Department Care Team Description 02/25/2019 Comprehensive Visit Division of [facility] Chronic Kidney Disease Stage 4 Glomerular Filtration Rate 15-29 (HCC) (Primary Dx); Nephrology and Ferny Krishnan, Achalasia; Hypertension in M.D. Cough With Hemorrhage; [place], [address] [place] [address] Shortness Of Breath; [place], [place] Dysphagia; [address] [place] [phone] Gastroesophageal Reflux Disease Without Esophagitis; [place], [place] [phone] Laparoscopic M yotomy For Achalasia Status Post [id number] (Work) [phone] Social History Tobacco Use Types Packs/Day Years [...] or relatives? How often do you attend rastafari or zoroastrianism More than 4 time s per year 04/11/2022 services? Do you belong to any clubs or organizations Yes 04/11/2022 such as rastafari groups, unions, fraternal or athletic groups, or [...] hasnever been biopsied. He sees his local jitterbug operator, , in [place] every 3 months. He has also seen [...] BREATH POST 02/20/2019 4.05 L Final ??? [id number] 02/20/2019 98.00 % Final ??? [id number] 02/20/2019 96.00 % Final ??? PulseRest 02/20/2019 [...] PEF PRE 02/20/2019 6.09 L/s Final ??? [id number]% 02/20/2019 1.30 L/s Final ??? FRCPLETH PROVBASE [...] 1 mg Mon Sat, Disp: , Rfl: DIAGNOSTICS His chronic kidney [...] to decline. Total time 30 minutes cell [id number] less than 50% counseling. Ferny Apodaca M.D. documented in this encounter Plan of Treatment Upcoming Encounters Date Type Specialty Care Team Description 04/15/2022 Comprehensive Visit Cardiovascular Disease Kayla Heredia M.D. [address] [place] [address] (Wo rk) documented as of this encounter Visit Diagnoses Diagnosis Chronic Kidney Disease Stage 4 Glomerula r Filtration Rate 15-29 (HCC) - Primary Achalasia Cough With Hemorrhage Shortness Of Breath Dysphagia Gastroesophageal Reflux Disease Without Esophagitis Laparoscopic Myotomy For Achalasia Statu s Post documented in this encounter
--- OUTSIDE RECORDS SUMMARY | 2022-04-13 21:46 | XMS_ITS | Encounter Summary ---
:1940 Author Organization [facility] Address [address] [place] [id number] Care Team Providers Name Role Phone Unavailable Primary Care Provider Unavailable Reason for Visit Outpatient (Routine) - Closed Specialty Diagnoses / Procedures Referred By Contact Refer red To Contact Pulmonary Medicine Diagnoses Achalasia Cough With Hemorrhage Shortness Of Breath Dysphagia Gastroesophageal Reflux Disease Without Esophagitis Laparoscopic Myotomy For Achalasia Status Post Chronic Kidney Disease Stage 4 Glomerular Filtration Rate 15-29 ([facility]) [facility] Laura GranadosB.S. 200 [place] [address] Referral ID Status Reason Start Date Expiration Date Visits V isits Requested Authorized [id number] Closed Specialty 02/14/2019 02/14/2020 1 1 Services Required Encounter Details Date Type Department Care Team Description 02/20/2019 Comprehensive Visit Division of Feroz Bo a; Pulmonary Jesu Mendes, Cough With He morrhage; Medicine in M.D. Shortness Of Breath; [address] Dysphagia; [place], [place] Gastroesophageal Reflux Dise ase Without Esophagitis; [address] [place] [phone] Laparoscopic Myotomy For Achalasia Statu s Post; [place], [place] [phone] Chronic Kidney Disease Stage 4 Glomerular Filtration Rate 15-29 ([facility]) [id number] (Work) [phone] Social History Tobacco Use Types Packs/Day Years [...] How often do you attend hoahaoism or pentecostalism More than 4 time s per year 04/11/2022 services? Do you belong to any clubs or organizations Yes 04/11/2022 such as hoahaoism groups, unions, [employer] or athletic groups, or school groups? How [...] coordinated through his local family physician, Dr. uKsh Doran, whom I spoke with today. Patient [...] PFT's-mild restriction with TLC 66% predicted. Chest [id number] patchy infiltrate and atelectasis with prominent central [...] Visit Cardiovascular Disease Kayla Heredia M.D. [address] [place] [phone] (Wo rk) documented as of this encounter Visit Diagnoses Diagnosis Achalasia Cough With Hemorrhage Shortness Of Breath Dysphagia Gastroesophageal Reflux Disease Without Esophagitis Laparoscopic Myotomy For Achalasia Statu s Post Chronic Kidney Disease Stage 4 Glomerula r Filtration Rate 15-29 ([facility]) documented in this encounter
--- OUTSIDE RECORDS SUMMARY | 2022-04-13 21:46 | XMS_ITS | Encounter Summary ---
:1940 Author Organization [facility] Address [address] [place] [address] Care Team Providers Name Role Phone Unavailable Primary Care Provider Unavailable Encounter Details Date Type Department Care Team Description 2021 Ancillary Procedure Department of Radiology Gavin Andujar, in [facility] Natalie queen APRNN.P. [address] [facility] [address] [place] [address] [place] [address] Social History Tobacco Use Types Packs/Day Years [...] or relatives? How often do you attend bahai or uatsdin More than 4 time s per year 04/11/2022 services? Do you belong to any clubs or organizations Yes 04/11/2022 such as bahai groups, unions, fraternal or athletic groups, or [...] Heredia M.D. [address] [place] [address] (Wo rk) documented as of this encounter [...]
--- OUTSIDE RECORDS SUMMARY | 2022-04-13 21:46 | XMS_ITS | Encounter Summary ---
:1940 Author Organization [facility] Address [address] [place] [address] Care Team Providers Name Role Phone Unavailable [...] How often do you attend religious or yazidism More than 4 time s per year 04/11/2022 services? Do you belong to any clubs or organizations Yes 04/11/2022 such as religious groups, unions, fraternal or [...] Cardiovascular Disease Kayla Heredia M.D. [address] [place] [address] (Wo rk) documented as of this encounter [...]
--- OUTSIDE RECORDS SUMMARY | 2022-04-13 21:46 | XMS_ITS | Encounter Summary ---
:1940 Author Organization [facility] Address [address] [place] [address] Care Team Providers Name Role Phone Unavailable Primary Care Provider Unavailable Reason for Referral Outpatient (Routine) - Closed Specialty Diagnoses / Procedures Referred By Contact Refer red To Contact Diagnoses Achalasia Guillermo Werner M.D., [facility] Procedures EGD (EsophagoGastroDuodenoscopy) Restricted Ph.D. 200 [place] [address] Referral ID Status Reason Start Date Expiration Date Visits Requ ested Visits Authorized [id number] Closed 12/17/2018 12/17/2019 1 1 Reason for Visit Outpatient (Routine) - Closed Specialty Diagnoses / Procedures Referred By Contact Refer red To Contact Diagnoses Achalasia Guillermo Werner M.D., [facility] Procedures EGD (EsophagoGastroDuodenoscopy) Restricted Ph.D. 200 [place] [address] Referral ID Status Reason Start Date Expiration Date Visits Requ ested Visits Authorized [id number] Closed 12/17/2018 12/17/2019 1 1 Encounter Details Date Type Department Care Team Description 02/18/2019 Hospital Encounter Division of Guillermo Werner M.D., Ph.D. Achalasia Gastroenterology in Juan Pablo Blevins APRN, ACCOUNT DEVELOPER [address] [place] [phone] [place], [place] [address] [place] [phone] Social History Tobacco Use Types Packs/Day [...] How often do you attend amish or mu-ism More than 4 time s per year 04/11/2022 services? Do you belong to any clubs or organizations Yes 04/11/2022 such as amish groups, unions, [employer] or athletic groups, or school groups? How [...] sent through Care Everywhere.Care Following Upper Endoscopy (Togolese)Types of Diets (Togolese)documented in this encounter Medications at Time of [...] Cardiovascular Disease Kayla Heredia M.D. [address] [place] [phone] (Wo rk) documented as of this encounter [...] Volume Laterality 02/18/2019 3:24 PM CDT [facility] 4:13 PM CDT Post-op Diagnoses: ? - Dilation in the entire esophagu s. ? - Normal lower esophageal sphinct er. Dilated. ? - Normal stomach. ? - Normal examined duodenum. ? - No specimens collected. ? - Endo flip consistent with treat ed achalasia. Narrative [facility] - 02/18/2019 4:13 PM CDT Gonda 2 [...] Organization Address City/State/ZIP Code Phon e Number [facility] NA documented in this encounter Visit Diagnoses Diagnosis Achalasia documented in this encounter Administered Medications Inactive Administered Medications - up to 3 most recent administrations Medication Order MAR Action Action Date Dose Rate Site lactated ringers Continued from OR 02/18/2019 4:15 PM 20 mL/hr 20 mL/hr 20 mL/hr, intravenous, CDT Continuous, Starting on 02/18/19 at 1615, PACU & Post-Op documented in this encounter
--- OUTSIDE RECORDS SUMMARY | 2022-04-13 21:46 | XMS_ITS | Encounter Summary ---
:1940 Author Organization [facility] Address [address] [place] [address] Care Team Providers Name Role Phone Unavailable Primary Care Provider Unavailable Encounter Details Date Type Department Care Team Description 02/18/2019 Anesthesia Event Division of Stas Blevins APRN, ERP DEVELOPER [address] [place] [address] [facility] [address] [place] [address] [place], [place] [address] [place] [phone] Anesthesia Record Procedure Summary Procedure Name Responsible Anesthesia Start Anesthesia Stop Anesthesiologist Time Time EGD Juan Pablo Blevins APRN, 02/18/19 1536 02/18 1615 (ESOPHAGOGASTRODUODE ERP DEVELOPER NOSCOPY) RESTRICTED Events Date Time Event Comment [...] h andoff to the receiving staff during [facility] we 1. Identified the patient [...] or relatives? How often do you attend anabaptism or lutheran More than 4 time s per year 04/11/2022 services? Do you belong to any clubs or organizations Yes 04/11/2022 such as anabaptism groups, unions, fraternal or athletic groups, or [...] Room / Location: Division of Gastroenterology in [place], [place] Anesthesia Start: 1536 Anesthesia Stop: 1615 [...] with patient /legal guardian or through an official court interpreter.. Risks/Benefits/Alternatives of Blood transfusion discussed with [...] Cardiovascular Disease Kayla Heredia M.D. [address] [place] [address] (Wo rk) documented as of this encounter [...]
--- OUTSIDE RECORDS SUMMARY | 2022-04-13 21:46 | XMS_ITS | Encounter Summary ---
:1940 Author Organization [facility] Address [address] [place] [address] Care Team Providers Name Role Phone Unavailable Primary Care Provider Unavailable Encounter Details Date Type Department Care Team Description 12/06/2021 Clinical Communication Division of Pulmonary Samia Gonzales, Medicine in M.D., [facility] [place], [place] [address] [facility] [address] [place] [phone] Social History Tobacco Use Types Packs/Day Years [...] or relatives? How often do you attend methodist or spiritism More than 4 time s per year 04/11/2022 services? Do you belong to any clubs or organizations Yes 04/11/2022 such as methodist groups, unions, fraternal or athletic groups, or [...] place to sleep or slept in a [place] [facility] (including now)? Education Answer Date Recorded What is the highest level of school you have completed or 12 th grade 02/14/2019 the highest degree you have received? Sex Assigned at Date Recorded Male 04/11/2022 12:05 PM CDT documented as of this encounter Plan of Treatment Upcoming Encounters Date Type Specialty Care Team Description 04/15/2022 Comprehensive Visit Cardiovascular Disease Kayla Heredia M.D. [address] [place] [phone] (Wo rk) documented as of this encounter Visit Diagnoses Diagnosis Empyema Pleural (HCC) documented in this encounter
--- OUTSIDE RECORDS SUMMARY | 2022-04-13 21:47 | XMS_ITS | Encounter Summary ---
:1940 Author Organization [facility] Address [address] [place] [address] Care Team Providers Name Role Phone Unavailable Primary Care Provider Unavailable Encounter Details Date Type Department Care Team Description 06/16/2002 - 06/25/2002 Hospital Encounter HX RST GABO HOLLOWAY 9D Social History Tobacco Use Types Packs/Day Years Used Date Smoking Tobacco: Never Assessed Alcohol Habits Answer Date Recorded How often [...] often do you attend jehovah's witness or christianity More than 4 time s per year 04/11/2022 services? Do you belong to any clubs or organizations Yes 04/11/2022 such as jehovah's witness groups, unions, fraternal [...] or slept in a alf (including now)? Sex Assigned at Date Recorded Male 04/11/2022 12:05 PM CDT documented as of this encounter Plan of Treatment Upcoming Encounters Date Type Specialty Care Team Description 04/15/2022 Comprehensive Visit Cardiovascular Disease Kayla Heredia M.D. [address] [place] [address] (Wo rk) documented as of this encounter Procedures Procedure Name Priority Date/Time Associated Comments Diagnosis US RETROPERITONEUM Routine 06/24/2002 9:19 Result s for this LIMITED PLUS AM STEAM CRANE OPERATOR procedure are i n RETROPERITONEUM LIMITED the results DOPPLER section. DX OUTSIDE IMAGE Routine 06/24/2002 6:38 Results for this INTERPRETATION AM STEAM CRANE OPERATOR procedure are in the results section. DX CHEST POST PICC Routine 06/21/2002 10:13 Resul ts for this PLACEMENT 1 VIEW PM STEAM CRANE OPERATOR procedure a re in the results section. DX CHEST POST PICC Routine 06/21/2002 6:11 Result s for this PLACEMENT 1 VIEW PM STEAM CRANE OPERATOR procedure a re in the results section. HXGENERAL PATHOLOGY Routine 06/21/2002 4:19 Resul ts for this REPORT PM STEAM CRANE OPERATOR procedure are i n the results section. ECG Routine 06/21/2002 10:38 Results for this AM STEAM CRANE OPERATOR procedure are i n the results section. CT ORBITS AND SELLA Routine 06/21/2002 8:27 Resul ts for this WITHOUT IV CONTRAST AM STEAM CRANE OPERATOR procedur e are in the results section. ECHOCARDIOGRAM Routine 06/20/2002 8:35 AM STEAM CRANE OPERATOR DX OUTSIDE IMAGE Routine 06/20/2002 6:32 Results for this INTERPRETATION AM STEAM CRANE OPERATOR procedure are in the results section. HXGENERAL PATHOLOGY Routine 06/19/2002 10:26 Resu lts for this REPORT AM STEAM CRANE OPERATOR procedure are i n the results section. HXPHYS SURG BLD ORDER Routine 06/18/2002 10:00 Re sults for this PM STEAM CRANE OPERATOR procedure are i n the results section. US ABDOMEN COMPLETE Routine 06/18/2002 9:39 Resul ts for this AM STEAM CRANE OPERATOR procedure are i n the results section. MR CERVICAL AND THORACIC Routine 06/18/2002 8:24 Results for this WITHOUT AND WITH IV AM STEAM CRANE OPERATOR procedur e are in CONTRAST the results section. ECG Routine 06/16/2002 9:34 Results for this PM STEAM CRANE OPERATOR procedure are i n the results section. DX CHEST AP OR PA AND Routine 06/16/2002 5:55 Res ults for this LATERAL 2 VIEWS PM STEAM CRANE OPERATOR procedure ar e in the results section. CT HEAD WITHOUT IV Routine 06/16/2002 4:28 Result s for this CONTRAST PM STEAM CRANE OPERATOR procedure are i n the results section. documented in this encounter Results US Retroperitoneum Limited plus Retroperitoneum Limited Doppler (06/24/2002 9:19 AM STEAM CRANE OPERATOR) Anatomical Region Laterality Modality Abdomen, Pelvis N/A Ultrasound Specimen (Source) Anatomical Collection Method Collection Time Re ceived Time Location / / Volume Laterality 06/24/2002 9:19 AM STEAM CRANE OPERATOR Narrative 06/24/2002 11:05 AM STEAM CRANE OPERATOR 24-Jun-2002 09:19:00 ??Exam: US Retro Lmtd w Doppler Lmtd Indications: INSUFFICIENCY^[id number] ORIGINAL REPORT - 24-Jun-2002 11:05:00 The [...] Electronically signed by: ?? Aiden Lafleur MD [id number] ([id number]) 24-Jun-20 02 11:05 Procedure Note Provider, Historical - 11/24/2017Formatt ing of this note might be different from the original. 24-Jun-2002 09:19:00 Exam: US Retro Lmtd w Doppler Lmtd Indications: INSUFFICIENCY^[id number] ORIGINAL REPORT - 24-Jun-2002 11:05:00 The [...] Dia.210 Electronically signed by: Aiden Lafleur MD [id number] ([id number]) 24-Jun-20 02 11:05 Jamal EDWARDSG US PROCEDURES DX Outside Image Interpretation (06/24/2002 6:38 AM STEAM CRANE OPERATOR) Anatomical Region Laterality Modality N/A Radiographic Imaging Specimen (Source) Anatomical Collection Method Collection Time Re ceived Time Location / / Volume Laterality 06/24/2002 6:38 AM STEAM CRANE OPERATOR Narrative 06/24/2002 9:30 AM STEAM CRANE OPERATOR 24-Jun-2002 06:38:00 ??Exam: Interp of OUTSIDE X-RAY Indications: ?? ORIGINAL REPORT - 24-Jun-2002 09:30:00 Outside MRA of the renal arteries perfor [facility] 06-04-01. The examination is moderately limited. Visualization [...] kidneys on the submitted images. ?? (06-24-02) ??(531) Electronically signed by: ?? Sena Tsang ??24-Jun-2002 0 9:30 Procedure Note Peng Santiago M.D., Ph.D. - 8 24-Jun-2002 06:38:00 Exam: Interp of OUT SIDE X-RAY Indications: ORIGINAL REPORT - 24-Jun-2002 09:30:00 Outside MRA of the renal arteries perfor [facility] 06-04-01. The examination is moderately limited. Visualization [...] the kidneys on the submitted images. (06-24-02) (533) Electronically signed by: Sena Tsang 24-Jun-2002 09: 30 Zeb Cotton M.D. IMG DIAGNOSTIC IMAGING PROCE DURES DX Chest Post PICC Placement 1 View (06/21/2002 10:13 PM STEAM CRANE OPERATOR) Anatomical Region Laterality Modality Chest N/A Radiographic Imaging Specimen (Source) Anatomical Collection Method Collection Time Re ceived Time Location / / Volume Laterality 06/21/2002 10:13 PM STEAM CRANE OPERATOR Narrative 06/22/2002 8:19 AM STEAM CRANE OPERATOR 21-Jun-2002 22:13:00 ??Exam: Chest-PICC Indications: Right PICC Tip Placement ORIGINAL REPORT - 21-Jun-2002 22:45:00 Right PICC tip in the proximal right sub clavian vein. Electronically signed by: ?? Jossy Valdes MD [id number] [id number]) 21-Jun-20 02 22:45 I have reviewed the [...] vein. Electronically signed by: Jossy Valdes MD [phone] [id number]) 21-Jun-20 02 22:45 I have reviewed the films/images and agr ee with the above interpretation. Electronically signed by: Miki Thomas MD. [id number] 22-Jun-2002 08:19 Jamal Camejo M.D. IMG DIAGNOSTIC IMAGING PROCE DURES DX Chest Post PICC Placement 1 View (06/21/2002 6:11 PM STEAM CRANE OPERATOR) Anatomical Region Laterality Modality Chest N/A Radiographic Imaging Specimen (Source) Anatomical Collection Method Collection Time Re ceived Time Location / / Volume Laterality 06/21/2002 6:11 PM STEAM CRANE OPERATOR Narrative 06/22/2002 12:05 PM STEAM CRANE OPERATOR 21-Jun-2002 18:11:00 ??Exam: Chest-PICC Indications: RIGHT PICC TIP PLACED ORIGINAL REPORT - 21-Jun-2002 19:03:00 Right PICC tip in RA. Cardiac enlargemen t. Electronically signed by: ?? Alivia Nur M.D. [id number] 21-Jun-2002 19:03 I have reviewed the films/images [...] t. Electronically signed by: Alivia Nur M.D. [id number] 21-Jun-2002 19:03 I have reviewed the films/images and agr ee with the above interpretation. Electronically signed by: Candida Roberto MD [id number] 22-Jun-2002 12:05 Jamal Camejo M.D. IMG DIAGNOSTIC IMAGING PROCE SUKUMAR general Pathology Report (06/21/2002 4:19 PM STEAM CRANE OPERATOR) Specimen Anatomical Collection Method Collection Time Receive d Time (Source) Location / / Volume Laterality 06/21/2002 4:19 PM 2 4:19 STEAM CRANE OPERATOR PM STEAM CRANE OPERATOR Narrative [facility] - 06/21/2002 4:19 PM STEAM CRANE OPERATOR [id number] General Biopsy Primary Physician: ?Cheng navarro Jr., M.D. ?([id number]) Requested By: ? Florentin lindquist M.D. ?? TISSUE DESCRIPTION: ?? A1. Bulb/second portion duodenum sma ll bowel - (5 pieces 0.2 - 0.3 cm. in diameter). B1. Lower ?? third esophagus - (4 pieces 0.1 - 0. 2 cm. in diameter). ?? [id number] A1, B1 ?? DIAGNOSIS: ?? 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 ?? B) Esophagus, distal, endoscopic bio psy: ??Luminal fibrinoinflammatory exudate consistent with ?? nearby ulcer/erosion site, and hyper plastic cardiac-type mucosa. ??No fungi (GMS stain) or ?? viral inclusions are identified. ?? 24Jun2002 ?Rahel Woo M.D.:ricki Procedure Note 11/11/2017 21Jun2002 General Biopsy Primary Physician: Jr Bailey Reyes M.D. ([id number]) Requested By: Florentin West M.D. TISSUE DESCRIPTION: A1. Bulb/second portion duodenum small bowel - (5 pieces 0.2 - 0.3 cm. in diameter). B1. Lower third esophagus - (4 pieces 0.1 - 0.2 c m. in diameter). [id number] A1, B1 DIAGNOSIS: A) Small bowel, duodenum, bulb and seco nd portion mass, endoscopic biopsy: Heterotopic gastric fundic-type mucosa. B) Esophagus, distal, endoscopic biopsy : Luminal fibrinoinflammatory exudate consistent with nearby ulcer/erosion site, and hyperpla stic cardiac-type mucosa. No fungi (GMS stain) or viral inclusions are identified. 24Jun2002 Rahel Woo M.D.:[facility] Florentin Giles M.D. LAB PATHOLOGY/CYTOLOGY ORDERABLES Performing Organization Address City/State/ZIP Code Phon e Number [facility] - [address] [place], [place] [address] [facility] ECG 12 Lead (06/21/2002 10:38 AM STEAM CRANE OPERATOR) Specimen (Source) Anatomical Collection Method Collection Time Re ceived Time Location / / Volume Laterality 06/21/2002 10:38 AM STEAM CRANE OPERATOR [facility] RADIOLOGY SYSTEM - 06/21/2002 10:59 AM STEAM CRANE OPERATOR 21Jun2002 10:38 VENTRICULAR RATE 64 Normal sinus rhythm Leftward axis When compared with ECG of 16-JUN-2002 21 :34, No significant change was found [id number]^EVERT ??^JONATHAN Procedure Note Jonathan Darden M.D. - 11/13/2017Formatt ing of this note might be different from the original. 21Jun2002 10:38 VENTRICULAR RATE 64 Normal sinus rhythm Leftward axis When compared with ECG of 16-JUN-2002 21 :34, No significant change was found [id number]^EVERT MOISE^JONATHAN Historical Provider ECG ORDERABLES Performing Organization Address City/State/ZIP Code Phon e Number [facility]X [facility] [address] [place] [address], [address] Orbits and Sella without IV Contrast (06/21/2002 8:27 AM STEAM CRANE OPERATOR) Anatomical Region Laterality Modality Head N/A Computed Tomography Specimen (Source) Anatomical Collection Method Collection Time Re ceived Time Location / / Volume Laterality 06/21/2002 8:27 AM STEAM CRANE OPERATOR Narrative 06/21/2002 11:48 AM STEAM CRANE OPERATOR 21-Jun-2002 08:27:00 ??Exam: CT PF/Sella/Orbit wo Indications: [...] Dia.450 Electronically signed by: Rubi Umanzor MD. [phone] 21-Jun-2002 11:[address] PROCEDURES Echocardiogram (06/20/2002 8:35 AM STEAM CRANE OPERATOR) Anatomical Region Laterality Modality Echocardiography Specimen (Source) Anatomical Collection Method Collection Time Re ceived Time Location / / Volume Laterality 06/20/2002 8:35 AM STEAM CRANE OPERATOR Historical Provider CV ECHO PROCEDURES DX Outside Image Interpretation (06/20/2002 6:32 AM STEAM CRANE OPERATOR) Anatomical Region Laterality Modality N/A Radiographic Imaging Specimen (Source) Anatomical Collection Method Collection Time Re ceived Time Location / / Volume Laterality 06/20/2002 6:32 AM STEAM CRANE OPERATOR Narrative 06/24/2002 10:40 AM STEAM CRANE OPERATOR 20-Jun-2002 06:32:00 ??Exam: Interp of OUTSIDE X-RAY [...] ??(362) Electronically signed by: ?? Sena Tsang ??824-Jun-2002 1 0:40 Procedure Note Peng Santiago M.D., [...] (06-24-02) (362) Electronically signed by: Sena Tsang [id number]-Jun-2002 10: 40 Historical Provider IMG DIAGNOSTIC IMAGING PROCE SUKUMAR Hx general Pathology Report (06/19/2002 10:26 AM STEAM CRANE OPERATOR) Specimen Anatomical Collection Method Collection Time Receive d Time (Source) Location / / Volume Laterality 06/19/2002 10:26 06/19/2002 AM STEAM CRANE OPERATOR 10:26 AM STEAM CRANE OPERATOR Narrative [facility] - 06/19/2002 10:26 AM STEAM CRANE OPERATOR [id number] Surgical Pathology Requested By: ? Zeb Cotton M.D. ?([id number]) ? Melecio Alfaro M.D. ?? TISSUE DESCRIPTION: ?? Tissue from brain (right frontal reg ion--2.0 x 2.0 x 0.3 cm in aggregate and 4.0 x 3.0 x 1.0 ?? cm in aggregate) ?? [id number] A1, A2, A3, A4, A5, A6 ?? DIAGNOSIS: ?? Brain, right frontal, biopsy: ??Orga nizing bacterial abscess. ??Gram stain demonstrates coccal ?? organisms. ??Stains for fungi are ne gative. ??Stains for mycobacteria (auramine rhodamine) show ?? rare bacilli that may represent cont aminants. ?? [id number] ?Zuleyma Millard M.D.:mirela ?? PRELIMINARY FROZEN SECTION CONSULTAT ION: ?? Organizing abscess. ??Hold over. Procedure Note 11/11/2017 [id number] Surgical Pathology Requested By: Zeb Cotton M.D. ( [id number]) Melecio Alfaro M.D. TISSUE DESCRIPTION: Tissue from brain (right frontal region --2.0 x 2.0 x 0.3 cm in aggregate and 4.0 x 3.0 x 1.0 cm in aggregate) [id number] A1, A2, A3, A4, A5, A6 DIAGNOSIS: Brain, right frontal, biopsy: Organizin g bacterial abscess. Gram stain demonstrates coccal organisms. Stains for fungi are negativ e. Stains for mycobacteria (auramine rhodamine) show rare bacilli that may represent contami nants. [id number] Zuleyma Millard M.D.:skjohnathan PRELIMINARY FROZEN SECTION CONSULTATION : Organizing abscess. Hold over. Zeb Cotton M.D. LAB PATHOLOGY/CYTOLOGY ORDER SHON Performing Organization Address City/State/ZIP Code Phon e Number [facility] - [address] [place], [place] [address] [facility] HX phys Surg Bld Order (06/18/2002 10:00 PM STEAM CRANE OPERATOR) Specimen Anatomical Collection Method Collection Time Receive d Time (Source) Location / / Volume Laterality 06/18/2002 10:00 06/18/2002 PM STEAM CRANE OPERATOR 10:55 PM STEAM CRANE OPERATOR Narrative [facility] - 06/18/2002 10:00 PM STEAM CRANE OPERATOR 18 Jun 2002 ?[id number] ? Ro ?22:00 ?? Phys Surg Bld Order: ?ABO/RH ? O POS ?Antibody Screen ?N eg ? Procedure Note 12/06/2017 18 Jun 2002 [id number] Ro 22:00 Phys Surg Bld Order: ABO/RH O POS Antibody Screen Neg Historical Provider LAB HISTORICAL ORDERS Performing Organization Address City/State/ZIP Code Phon e Number [facility] - [address] [place], [place] [address] [facility] US Abdomen Complete (06/18/2002 9:39 AM STEAM CRANE OPERATOR) Anatomical Region Laterality Modality Abdomen N/A Ultrasound Specimen (Source) Anatomical Collection Method Collection Time Re ceived Time Location / / Volume Laterality 06/18/2002 9:39 AM STEAM CRANE OPERATOR Narrative 06/18/2002 12:23 PM STEAM CRANE OPERATOR 18-Jun-2002 09:39:00 ??Exam: US Abdomen Complete Indications: r/o metastases^[id number] ?? do2 -300 ORIGINAL REPORT - 18-Jun-2002 [...] left measuring 10.4cm and the right 10.2cm [id number]. Normal caliber abdo deion aorta. Examination is otherwise negative. ?? ELECTRONIC IMAGES ONLY--NO FILMS Ind: 771.705 ?? Dia.120 ?? Electronically signed by: ?? Arvin Bland M.D. [id number] ([id number]) 18-Jun-20 02 12:23 Procedure Note Chava Bland M.D. - 11/24/2017Formatti ng of this note might be different from the original. 18-Jun-2002 09:39:00 Exam: US Abdomen Co mplete Indications: r/o metastases^[id number] do2-30 0 ORIGINAL REPORT - 18-Jun-2002 12:23:00 [...] left measuring 10.4cm and the right 10.2cm [id number]. Normal caliber abdominal aorta. Examination is otherwise negative. ELECTRONIC IMAGES ONLY--NO FILMS Ind: 771.705 Dia.120 Electronically signed by: Arvin Bland M.D. [id number] [id number]) 18-Jun-20 02 12:23 Rell Raza M.D. IMG US PROCEDURES MR Cervical And Thoracic Without And With Iv Contrast (06/18/2002 8:24 AM STEAM CRANE OPERATOR) Anatomical Region Laterality Modality Magnetic Resonance Specimen (Source) Anatomical Collection Method Collection Time Re ceived Time Location / / Volume Laterality 06/18/2002 8:24 AM STEAM CRANE OPERATOR Narrative 06/18/2002 10:14 AM STEAM CRANE OPERATOR 18-Jun-2002 08:24:00 ??Exam: MRI CSP & THSP [...] Dia.357 Electronically signed by: Lizzette Varela M.D. [id number] 18-Jun-2002 10:14 Vivek Blue M.D. IMG MRI PROCEDURES ECG 12 Lead (06/16/2002 9:34 PM [facility]) Specimen (Source) Anatomical Collection Method Collection Time Re ceived Time Location / / Volume Laterality 06/16/2002 9:34 PM [facility] RADIOLOGY SYSTEM - 06/17/2002 5:48 AM [facility] 16Jun2002 21:34 VENTRICULAR RATE 61 Normal sinus rhythm Left axis deviation No previous ECGs available [id number]^ALVERTO ??^ACE Procedure Note Ace Ragland M.D. - 11/13/2017Forma tting of this note might be different from the original. 16Jun2002 21:34 VENTRICULAR RATE 61 Normal sinus rhythm Left axis deviation No previous ECGs available [id number]^ALVERTO MOISE^ACE Historical Provider ECG ORDERABLES Performing Organization Address City/State/ZIP Code Phon e Number HX [facility] [address] [place] [address], U SA DX Chest AP or PA and Lateral 2 Views (06/16/2002 5:55 PM [facility]) Anatomical Region Laterality Modality Chest N/A Radiographic Imaging Specimen (Source) Anatomical Collection Method Collection Time Re ceived Time Location / / Volume Laterality 06/16/2002 5:55 PM [facility] 06/17/2002 2:58 PM [facility] 16-Jun-2002 17:55:00 ??Exam: Chest-- 2 Views Indications: HERB ORIGINAL REPORT - 16-Jun-2002 18:18:00 Tiny amount of fluid or pleural thickeni ng left base. Calcified granuloma right upper lung. Electronically signed by: ?? Alcira Raya MD [id number] 16-Jun-2002 18:18 I have reviewed the films/images and agr ee with the above interpretation. Electronically signed by: ?? B.F. ??King JOSE MARIA. ?? [phone] 17-Jun-2002 14 :58 Procedure Note Navneet Gomez M.D. - 11/24/2017Format ting of this note might be different from the original. 16-Jun-2002 17:55:00 Exam: Chest-- 2 Vie ws Indications: HERB ORIGINAL REPORT - 16-Jun-2002 18:18:00 Tiny amount of fluid or pleural thickeni ng left base. Calcified granuloma right upper lung. Electronically signed by: Alcira Raya MD [id number] 16-Jun-2002 18:18 I have reviewed the films/images and agr ee with the above interpretation. Electronically signed by: Lesly Gomez MD. [id number] 17-Jun-2002 14:58 Lizz BAKER DIAGNOSTIC IMAGING PROCE [facility] CT Head without IV Contrast (06/16/2002 4:28 PM STEAM CRANE OPERATOR) Anatomical Region Laterality Modality Head N/A Computed Tomography Specimen (Source) Anatomical Collection Method Collection Time Re ceived Time Location / / Volume Laterality 06/16/2002 4:28 PM STEAM CRANE OPERATOR Narrative 06/17/2002 9:16 AM STEAM CRANE OPERATOR 16-Jun-2002 16:28:00 ??Exam: CT Head wo Indications: [...]
--- OUTSIDE RECORDS SUMMARY | 2022-04-13 21:47 | XMS_ITS | Encounter Summary ---
:1940 Author Organization [facility] Address [address] [place] [address] Care Team Providers Name Role Phone Harish Silver MD Primary Care Provider Encounter Details Date Type Department Care Team Description 03/30/2022 Orders Only [facility] Sebastian Mohan MD [phone] [place] [address] [place], [place] [phone] (Wo rk) Social History Tobacco Use [...] this encounter Results (ABNORMAL) Spectrae Chemistry (03/30/2022) [facility] gist Method Time Signature BUN 76 [...] 03/31/2022 Unless otherwise specified, test(s) performed at: [facility], [address] [place] [address], [place] [address] ADJUNCT PHYSICAL EDUCATION INSTRUCTOR: Dariel Doyle M.D., Ph.D For any questions, please call customer service at FREQUENCY:MONTHLY Resulting Agency Comment Specimen source: Serum Sebastian Charles MD LAB BLOOD ORDERABLES Performing Organization Address City/State/ZIP Code Phon e Number [facility] (ABNORMAL) HEMATOLOGY (03/30/2022) [facility] gist Method Time Signature WBC 6.97 [...] 03/31/2022 Unless otherwise specified, test(s) performed at: [facility], [address] [place] [address], [place] [address] ADJUNCT PHYSICAL EDUCATION INSTRUCTOR: Dariel Doyle M.D., Ph.D For any questions, please call customer service at FREQUENCY:MONTHLY Resulting Agency Comment Specimen source: Blood Sebastian Charles MD LAB BLOOD ORDERABLES Performing Organization Address City/State/ZIP Code Phon e Number [facility] documented in this encounter Visit Diagnoses Not on filedocumented in this encounter Care Teams Lead Technical Architect Relationship Specialty Start Date End Date Harish Silver MD PCP - General 05/17/19 [address] [place] [address] documented as of this encounter
--- OUTSIDE RECORDS SUMMARY | 2022-04-13 21:47 | XMS_ITS | Encounter Summary ---
:1940 Author Organization [facility] Address [address] [place] [address] Care Team Providers Name Role Phone Harish Silver MD Primary Care Provider Encounter Details Date Type Department Care Team Description 03/30/2022 Treatment [facility] Sebastian Jimenez MD [address] [place] [address] [place], [place] [phone] (Wo rk) Social History Tobacco Use Types [...] Name: David Castro : 1940 Chart #: [id number] Sex: M This patient was personally seen for a complete visit as part of routine monthly dialysis care. A review of the dialysis treatment, blood pressure, estimated dry weight, and recent lab values was made.These were discussed with the patient and staff as necessary. MUSIC VIDEO PRODUCER: Sebastian Charles MD LOCATION: [phone] SCHEDULE: No Routine Schedule Subjective Tolerating dialysis [...] HE walked 5 miles with >10,000 steps [id number] already this morning. He has no orthopnea or SOB, wt is lower, dialysis is going very well, and he has his liquid diet figured out and is tolerating protein powder and liquicel. He has no concerns at all today and is very pleased since feeling much better after IV iron infusion at the [facility] that we had arranged. 12/22/21: Georges was unfortunately hospitalized twice since our last visit. He went home and was very weak after I saw him last month on 12/01, went to ER and was admitted at [facility] from 12/02-12/08, had empyemaand chest tube was [...] on filedocumented in this encounter Care Teams Cloth Measurer Machine Relationship Specialty Start Date End Date Harish Silver MD PCP - General 05/17/19 [address] [place] [address] documented as of this encounter
--- OUTSIDE RECORDS SUMMARY | 2022-04-13 21:47 | XMS_ITS | Encounter Summary ---
:1940 Author Organization [facility] Address [address] [place] [address] Care Team Providers Name Role Phone Unavailable [...] or relatives? How often do you attend sabianist or zoroastrianism More than 4 time s per year 04/11/2022 services? Do you belong to any clubs or organizations Yes 04/11/2022 such as sabianist groups, unions, fraternal or athletic groups, or [...] or slept in a custodial (including now)? Sex Assigned at Date Recorded Male 04/11/2022 12:05 PM CDT documented as of this encounter Plan of Treatment Upcoming Encounters Date Type Specialty Care Team Description 04/15/2022 Comprehensive Visit Cardiovascular Disease Kayla Heredia M.D. [address] [place] [phone] (Wo rk) documented as of this encounter Procedures Procedure Name Priority Date/Time Associated Diagnosis Comme nts US EXTREMITY VEINS Routine 07/06/2002 9:51 AM Res ults for this LABEL OPERATOR procedure are i n the results section. DX CHEST POST PICC Routine 07/04/2002 8:12 PM Res ults for this PLACEMENT 1 VIEW LABEL OPERATOR procedure a re in the results section. US EXTREMITY VEINS Routine 07/04/2002 9:06 AM Res ults for this LABEL OPERATOR procedure are i n the results section. US EXTREMITY VEINS Routine 06/30/2002 10:55 AM Re sults for this LABEL OPERATOR procedure are i n the results section. documented in this encounter Results US Extremity Veins (07/06/2002 9:51 AM LABEL OPERATOR) Anatomical Region Laterality Modality Vascular, Upper Extremity, Lower Extremity Ultrasound Specimen (Source) Anatomical Collection Method Collection Time Re ceived Time Location / / Volume Laterality 07/06/2002 9:51 AM LABEL OPERATOR Narrative 07/06/2002 12:16 PM LABEL OPERATOR 06-Jul-2002 09:51:00 ??Exam: R US Extremity Veins Limited Indications: RUE--F/U DVT, PLEASE DO SAT URDAY PER ??[id number] ORIGINAL REPORT - 06-Jul-2002 12:16:00 Doppler ultrasound [...] Electronically signed by: ?? Arvin Bland M.D. [phone] ([id number]) 06-Jul-20 12:16 Procedure Note Chava Bland M.D. - 11/24/2017Formatti ng of this note might be different from the original. 06-Jul-2002 09:51:00 Exam: R US Extremit y Veins Limited Indications: RUE--F/U DVT, PLEASE DO SAT URDAY PER [id number] ORIGINAL REPORT - 06-Jul-2002 12:16:00 Doppler ultrasound [...] .556 Electronically signed by: Arvin Bland M.D. [phone] ([id number]) 06-Jul-20 02 12:16 Edison Vazquez M.D. IMG US PROCEDURES DX Chest Post PICC Placement 1 View (07/04/2002 8:12 PM LABEL OPERATOR) Anatomical Region Laterality Modality Chest N/A Radiographic Imaging Specimen (Source) Anatomical Collection Method Collection Time Re ceived Time Location / / Volume Laterality 07/04/2002 8:12 PM LABEL OPERATOR Narrative 07/05/2002 10:44 AM LABEL OPERATOR 04-Jul-2002 20:12:00 ??Exam: Chest-PICC Indications: left picc placement-svc ORIGINAL REPORT - 04-Jul-2002 20:49:00 Left PICC line with tip at the junction of the left innominate vein and SVC. No pneumothorax. Electronically signed by: ?? Norris Peraza [phone] ([id number]) 04-Jul-20 02 20:49 I have reviewed the films/images and agr ee with the above interpretation. Electronically signed by: ?? Eric. Dai Boyce M.D. 05-Jul-2002 10:44 Procedure Note Ari Boyce M.D. - 11/24/2017Formatt ing of this note might be different from the original. 04-Jul-2002 20:12:00 Exam: Chest-PICC Indications: left picc placement-svc ORIGINAL REPORT - 04-Jul-2002 20:49:00 Left PICC line with tip at the junction of the left innominate vein and SVC. No pneumothorax. Electronically signed by: Norris Peraza [phone] [id number]) 04-Jul-20 02 20:49 I have reviewed the films/images and agr ee with the above interpretation. Electronically signed by: Eric. Dai Boyce M.D. 05-Jul-2002 10:44 Edison Vazquez M.D. IMG DIAGNOSTIC IMAGING [facility] US Extremity Veins (07/04/2002 9:06 AM LABEL OPERATOR) Anatomical Region Laterality Modality Vascular, Upper Extremity, Lower Extremity Ultrasound Specimen (Source) Anatomical Collection Method Collection Time Re ceived Time Location / / Volume Laterality 07/04/2002 9:06 AM LABEL OPERATOR Narrative 07/04/2002 11:44 AM LABEL OPERATOR 04-Jul-2002 09:06:00 ??Exam: R US Extremity Veins Limited Indications: SWELLING/R/O THROMBOSIS^MB3 [id number] ORIGINAL REPORT - 04-Jul-2002 11:44:00 Ultrasound examination [...] Extremit y Veins Limited Indications: SWELLING/R/O THROMBOSIS^MB3 [id number] ORIGINAL REPORT - 04-Jul-2002 11:44:00 Ultrasound examination [...] PROCEDURES US Extremity Veins (06/30/2002 10:55 AM LABEL OPERATOR) Anatomical Region Laterality Modality Vascular, Upper Extremity, Lower Extremity Ultrasound Specimen (Source) Anatomical Collection Method Collection Time Re ceived Time Location / / Volume Laterality 06/30/2002 10:55 AM LABEL OPERATOR Narrative 07/01/2002 10:57 AM LABEL OPERATOR 30-Jun-2002 10:55:00 ??Exam: US Extremity Veins Complete Indications: SWELLING/PAIN ORIGINAL REPORT - 30-Jun-2002 15:57:00 Doppler ultrasound evaluation of bilater al lower extremity venous systems demonstrates patent and easily compressible common femoral, superficial femoral, and popliteal veins in both legs. ??No evidence for deep venous thrombosis. ?? Ultrasound electronic images only. ??NO FILMS Ind: [id number] ?? Dia.[email or web address] ?? Electronically signed by: ?? Marysol Mejia MD [phone] ([id number]) 2 15:57 I have reviewed the films/images and agr ee with the above interpretation. Electronically signed by: ?? Juan David [phone] [id number]) 2 10:57 Procedure Note Provider, Historical - 11/24/2017Formatt ing of this note might be different from the original. 30-Jun-2002 10:55:00 Exam: US Extremity Veins Complete Indications: SWELLING/PAIN ORIGINAL REPORT - 30-Jun-2002 15:57:00 Doppler ultrasound evaluation of bilater al lower extremity venous systems demonstrates patent and easily compressible common femoral, superficial femoral, and popliteal veins in both legs. No evidence for deep venous thrombosis. Ultrasound electronic images only. NO FI LMS Ind: [id number] Dia.[email or web address] Electronically signed by: Marysol Mejia MD [phone] ([id number]) 2 15:57 I have reviewed the films/images and agr ee with the above interpretation. Electronically signed by: Juan David [phone] [id number]) 2 10:57 Bassam BAKER US PROCEDURES documented in this encounter Visit Diagnoses Not on filedocumented in this encounter
--- OUTSIDE RECORDS SUMMARY | 2022-04-13 21:47 | XMS_ITS | Encounter Summary ---
:1940 Author Organization [facility] Address [address] [place] [address] Care Team Providers Name Role Phone Unavailable Primary Care Provider Unavailable Encounter Details Date Type Department Care Team Description 02/14/2019 Hospital Encounter Department of Marilin, Achalasi a; Radiology, Terrell Subhankar, Cough With H emorrhage; [facility] [place] Gastroesophageal Reflux Dise ase Without Esophagitis; [address] [facility] Laparoscopic Myotomy For Ach alasia Status Post; [place], [place] Chronic Kidney Disease Stage 4 Glomerular Filtration Rate 15-29 ([facility]) [phone] Social History Tobacco Use Types Packs/Day Years [...] How often do you attend voodoo or mandaen More than 4 time s per year 04/11/2022 services? Do you belong to any clubs or organizations Yes 04/11/2022 such as voodoo groups, unions, fraternal or athletic groups, or [...] place to sleep or slept in a detention (including now)? Education Answer Date Recorded What [...] Visit Cardiovascular Disease Kayla Heredia M.D. [address] [place] [phone] (Wo rk) documented as of this encounter [...]
--- OUTSIDE RECORDS SUMMARY | 2022-04-13 21:47 | XMS_ITS | Encounter Summary ---
:1940 Author Organization [facility] Address [address] [place] [address] Care Team Providers Name Role Phone Unavailable Primary Care Provider Unavailable Encounter Details Date Type Department Care Team Description 02/14/2019 Hospital Encounter Department of Marilin, Achalasi a; Laboratory Medicine Chicohankar, Cough Wi th Hemorrhage; and Pathology, [facility] Shortness Of Breath; [facility], in Dysphagi a; [facility] Gastroesophagea l Reflux Disease Without Esophagitis; [place] Laparoscopic Myotomy For Ach alasia Status Post; [address] [facility] Chronic Kidney Disease Stage 4 Glomerular Filtration Rate 15-29 (HCC) [place] [address] Social History Tobacco Use Types Packs/Day Years [...] or relatives? How often do you attend cheondoism or christian More than 4 time s per year 04/11/2022 services? Do you belong to any clubs or organizations Yes 04/11/2022 such as cheondoism groups, unions, fraternal or athletic groups, or [...] place to sleep or slept in a mcc (including now)? Education Answer Date Recorded What [...] Visit Cardiovascular Disease Kayla Heredia M.D. [address] [place] [phone] (Wo rk) documented as of this encounter [...] 02/14/2019 AM CDT 10:57 AM CDT Darwin Giles LAB URINE ORDERABLES Performing Organization Address City/State/ZIP Code Phon e Number [facility] - [address] [place], [place] [address] [facility] (ABNORMAL) Microalbumin, Random, Urine (02/14/2019 10:57 AM CDT) athologist Signature Microalbumin 101.0 mg/L 02/14/2019 11:27 AM CDT Comment: ----ADDITIONAL INFORMATION---- This test has been modified from the man ufacturer's instructions. Its performance characteri stics were determined by [facility] in a manner co nsistent with [...] Organization Address City/State/ZIP Code Phon e Number [facility] - [address] [place], [place] [address] [facility] (ABNORMAL) Urinalysis with Microscopic: Urine, Clean Catch (02/14/2019 10:57 AM CDT) [facility] Method Time Signature Source Midstream 02/14/2019 10:57 AM CDT Appearance Normal Normal 02/14/2019 11:27 AM CDT Osmolality, U 412 150 - 1150 02/14/2019 mOsm/kg 12:21 PM CDT pH, U 5.4 4.5 - 8.0 02/14/2019 12:21 PM CDT Comment: ----ADDITIONAL INFORMATION---- This test was developed and its performa nce characteristics determined by [facility] in a manner co nsistent with [...] Organization Address City/State/ZIP Code Phon e Number [facility] - [address] [place] [phone] [facility] documented in this encounter Visit Diagnoses Diagnosis Achalasia Cough With Hemorrhage Shortness Of Breath Dysphagia Gastroesophageal Reflux Disease Without Esophagitis Laparoscopic Myotomy For Achalasia Statu s Post Chronic Kidney Disease Stage 4 Glomerula r Filtration Rate 15-29 (HCC) documented in this encounter
--- OUTSIDE RECORDS SUMMARY | 2022-04-13 21:47 | XMS_ITS | Encounter Summary ---
:1940 Author Organization [facility] Address [address] [place] [address] Care Team Providers Name Role Phone Unavailable Primary Care Provider Unavailable Encounter Details Date Type Department Care Team Description 07/29/2003 - Hospital Encounter HX RST SLEEP FLOOR Shivam, 08/05/2003 PRACTICE Juan Pablo Purdy M.D. [address] [place] [address] Social History Tobacco Use Types Packs/Day Years [...] or relatives? How often do you attend zoroastrian or catholic More than 4 time s per year 04/11/2022 services? Do you belong to any clubs or organizations Yes 04/11/2022 such as zoroastrian groups, unions, fraternal or athletic groups, or [...] place to sleep or slept in a prison (including now)? Sex Assigned at Date Recorded Male 04/11/2022 12:05 PM CDT documented as of this encounter Plan of Treatment Upcoming Encounters Date Type Specialty Care Team Description 04/15/2022 Comprehensive Visit Cardiovascular Disease Kayla Heredia M.D. [address] [place] [phone] (Wo rk) documented as of this encounter Visit Diagnoses Not on filedocumented in this encounter
--- OUTSIDE RECORDS SUMMARY | 2022-04-13 21:47 | XMS_ITS | Encounter Summary ---
:1940 Author Organization [facility] Address [address] [place] [address] Care Team Providers Name Role Phone Unavailable [...] How often do you attend voodoo or denominational More than 4 time s per year [...] or slept in a fpc (including now)? Sex Assigned at Date Recorded Male 04/11/2022 12:05 PM CDT documented as of this encounter Plan of Treatment Upcoming Encounters Date Type Specialty Care Team Description 04/15/2022 Comprehensive Visit Cardiovascular Disease Kayla Heredia M.D. [address] [place] [phone] (Wo rk) documented as of this encounter Visit Diagnoses Not on filedocumented in this encounter
--- OUTSIDE RECORDS SUMMARY | 2022-04-13 21:47 | XMS_ITS | Encounter Summary ---
:1940 Author Organization [facility] Address [address] [place] [address] Care Team Providers Name Role Phone Unavailable Primary Care Provider Unavailable Reason for Referral Outpatient (Routine) - Closed Specialty Diagnoses / Referred By Referred To Cont act Procedures Contact Gastroenterology and [facility] Hepatology Laura GranadosB.S. 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 [address] [place] [address] Referral ID Status Reason Start Date Expiration Date Visits V isits Requested Authorized [id number] Closed Specialty 02/14/2019 02/14/2020 1 1 Services Required utpatient (Routine) - Closed Specialty Diagnoses / Procedures Referred By Contact Refer red To Contact Nephrology and Diagnoses Achalasia Cough With Hemorrhage Shortness Of Breath Dysphagia Gastroesophageal Reflux Disease Without Esophagitis Laparoscopic Myotomy For Achalasia Status Post Chronic Kidney Disease Stage 4 Glomerular Filtration Rate 15-29 ([facility]) [facility] Hypertension Trisha GranadosSBailey [address] [place] [address] Referral ID Status Reason Start Date Expiration Date Visits Requ ested Visits Authorized [id number] Closed 02/14/2019 02/14/2020 1 1 utpatient (Routine) - Closed Specialty Diagnoses / Procedures Referred By Contact Refer red To Contact Diagnoses Guillermo Ayers M.D., [facility] Procedures EGD (EsophagoGastroDuodenoscopy) Restricted Ph.D. [address] [place] [address] Referral ID Status Reason Start Date Expiration Date Visits Requ ested Visits Authorized [id number] Closed 12/17/2018 12/17/2019 1 1 Outpatient (Routine) - Closed Specialty Diagnoses / Procedures Referred By Contact Refer red To Contact Diagnoses Guillermo Ayers M.D., [facility] Procedures ECG 12 Lead GA EKG 12 LEAD TRACE ONLY GA EKG I&R ONLY Ph.D. [address] [place] [address] Referral ID Status Reason Start Date Expiration Date Visits Requ ested Visits Authorized [id number] Closed 12/17/2018 12/17/2019 1 1 Outpatient (Routine) - Closed Specialty Diagnoses / Procedures Referred By Contact Refer red To Contact Thoracic Surgery Diagnoses MattiealasiGuillermo Roberto M.D., Ph.D. [address] [place] [address] Referral ID Status Reason Start Date Expiration Date Visits Requ ested Visits Authorized [id number] Closed 12/17/2018 12/17/2019 1 1 Outpatient (Routine) - Closed Specialty Diagnoses / Procedures Referred By Contact Refer red To Contact Diagnoses Guillermo Ayers M.D., [facility] Procedures FL Esophagram GA XR ESOPHAGUS HC XR ESOPHAGUS GA XR ESOPHAGUS Ph.D. [address] [place] [address] Referral ID Status Reason Start Date Expiration Date Visits Requ ested Visits Authorized [id number] Closed 12/17/2018 12/17/2019 1 1 Reason for Visit Reason Comments Dysphasia Esoph Appointment Request (Routine) - Closed Specialty Diagnoses / Referred By Contact Referred To Procedures Contact Gastroenterology and [facility]at[facility] Trin[facility] [address] [place] [place] [address] Referral ID Status Reason Start Date Expiration Date Visits Requ ested Visits Authorized [id number] Closed 12/14/2018 12/14/2019 1 Encounter Details Date Type Department Care Team Description 02/14/2019 Comprehensive Visit Division of [facility] Achalasi a (Primary Dx); Gastroenterology in y, Cough Wi th Hemorrhage; [place], [place] Subhankar, Shortness Of Breath; [address] [place] [address] M.B.B.S. Dysphagia; [place], [place] Gastroesophage al Reflux Disease Without Esophagitis; [phone] Laparoscopic Myotomy For Ach alasia Status Post; [phone] Chronic Kidney Disease Stage 4 Glomerular Filtration [...] How often do you attend restorationism or yarsani More than 4 time s per year 04/11/2022 services? Do you belong to any clubs or organizations Yes 04/11/2022 such as restorationism groups, unions, fraternal or [...] neck surgery? ??Yes, brain surgery here at [facility] Do you have a continuous infusion device or on continuous oxygen? No documented in this encounter Consult Notes Darwin Gaston M.B.B.S., Ph.D. - 02/14/2019 7:40 AM CDT SUBJECTIVE Chief Complaint/Reason for Visit dysphagia, cough and hemoptysis Chief Complaint Patient presents with ??? Dysphasia Anita Castro is a 78 y.o. male who [...] of any scanned into our records done [id number] revealed no esophagitis. All these endoscopies noted [...] Disease Stage 4 Glomerular Filtration Rate 15-29 ([facility]) Nephrology and Hypertension- Chronic kidney disease consult [...] failure as well. CT CT Job ID: [id number] documented in this encounter Plan of Treatment Upcoming Encounters Date Type Specialty Care Team Description 04/15/2022 Comprehensive Visit Cardiovascular Disease Kayla Heredia M.D. [address] [place] [address] (Wo rk) Scheduled Referrals Name Type Priority [...] athologist Signature DLCO SINGLE 17.42 ml/(min*mm 02/20/2019 [facility]ATH [facility] Hg) 1:52 PM [address] VA SINGLE 4.05 L 02/20/2019 [facility] 1:52 PM CDT SUITE [id number] 98.00 % 02/20/2019 [facility] 1:52 PM CDT SUITE [id number] 96.00 % 02/20/2019 [facility] 1:52 PM CDT SUITE PulseRest 73.00 1/min 02/20/2019 [facility] 1:52 PM CDT SUITE PulseExer 129.00 1/min 02/20/2019 [facility] 1:52 PM CDT SUITE EXER TIME 3.00 min 02/20/2019 [facility] 1:52 PM CDT SUITE STEP HEIGHT 9.00 Inch 02/20/2019 [facility] PRE 1:52 PM CDT SUITE VC MAX POST 2.46 L 02/20/2019 [facility] 1:52 PM CDT SUITE PostFEV1 1.76 L 02/20/2019 [facility] 1:52 PM CDT SUITE FEV1/FVC POST 71.87 % 02/20/2019 [facility] 1:52 PM CDT SUITE PostFVC 2.46 L 02/20/2019 [facility] 1:52 PM CDT SUITE FET POST 6.10 sec 02/20/2019 [facility] 1:52 PM CDT SUITE PEF POST 8.10 L/s 02/20/2019 [facility] 1:52 PM CDT SUITE FEF 25-75 % 1.10 L/s 02/20/2019 [facility] 1:52 PM CDT SUITE VC MAX PRE 2.50 L 02/20/2019 [facility] 1:52 PM CDT SUITE FEV1 1.82 L 02/20/2019 [facility] 1:52 PM CDT SUITE FEV1/FVC 73.95 % 02/20/2019 [facility] 1:52 PM CDT SUITE MVV 55.36 L/min 02/20/2019 [facility] 1:52 PM CDT SUITE FVC 2.47 L 02/20/2019 [facility] 1:52 PM CDT SUITE FET PRE 6.00 sec 02/20/2019 [facility] 1:52 PM CDT SUITE PEF PRE 6.09 L/s 02/20/2019 [facility] 1:52 PM CDT SUITE XSF37-03% 1.30 L/s 02/20/2019 [facility] 1:52 PM CDT SUITE FRCPLETH 2.44 L 02/20/2019 [facility] PROVBASE 1:52 PM CDT SUITE RV 1.91 L 02/20/2019 [facility] 1:52 PM CDT SUITE TLC 4.40 L 02/20/2019 [facility] 1:52 PM CDT SUITE RV % TLC PRE 43.50 % 02/20/2019 [facility] 1:52 PM CDT SUITE VC PRE 2.49 L 02/20/2019 [facility] 1:52 PM CDT SUITE SUBSTANCE POST NaN 02/20/2019 [facility] 1:52 PM CDT SUITE DOSE POST NaN 02/20/2019 [facility] 1:52 PM CDT SUITE % PRED VC MAX 67.22 % 02/20/2019 [facility] 1:52 PM CDT SUITE FEV1% 65.60 % 02/20/2019 [facility] 1:52 PM CDT SUITE % PRED 98.14 % 02/20/2019 [facility] FEV1/FVC 1:52 PM CDT SUITE FVC% 66.39 % 02/20/2019 [facility] 1:52 PM CDT SUITE % PRED PEF 80.62 % 02/20/2019 [facility] 1:52 PM CDT SUITE % PRED FEF 63.82 % 02/20/2019 [facility] 25-75% 1:52 PM CDT SUITE PRED VC MAX 3.72 L 02/20/2019 [facility] 1:52 PM CDT SUITE PRED FEV 1 2.78 L 02/20/2019 [facility] 1:52 PM CDT SUITE PRED FEV1/FVC 75.35 % 02/20/2019 [facility] 1:52 PM CDT SUITE PRED FVC 3.72 L 02/20/2019 [facility] 1:52 PM CDT SUITE PRED PEF 7.55 L/s 02/20/2019 [facility] 1:52 PM CDT SUITE PRED FEF 2.03 L/s 02/20/2019 [facility] 25-75% 1:52 PM CDT SUITE Specimen (Source) Anatomical Collection Method Collection Time Re ceived Time Location / / Volume Laterality 02/20/2019 12:08 PM CDT Narrative This result has an attachment that is no t available. Darwin Giles PFT ORDERABLES Performing Organization Address City/State/ZIP Code Phon e Number [facility] SUITE [facility] SUITE NA ECG 12 Lead (02/15/2019 8:59 AM CDT) P athologist Signature Ventricular Rate 89 BPM MUSE ECG/Min QRSD Interval 178 ms MUSE QT Interval 450 ms MUSE QTC Interval 547 ms MUSE R [place] -41 degrees MUSE T Wave [place] 93 degrees MUSE Specimen Anatomical Collection Method Collection Time Receive d Time (Source) Location / / Volume Laterality 02/15/2019 8:59 AM 9 9:16 CDT AM CDT Impressions MUSE [...] bilaterally with bilateral nonobstructing renal stones. Darwin Lockwood.S. IMG US PROCEDURES (ABNORMAL) Microalbumin, Random, Urine (02/14/2019 10:57 AM CDT) athologist Signature Microalbumin 101.0 mg/L 02/14/2019 11:27 AM CDT Comment: ----ADDITIONAL INFORMATION---- This test has been modified from the man ufacturer's instructions. Its performance characteri stics were determined by [facility] in a manner co nsistent with [...] Catch) AM CDT 10:57 AM CDT Darwin SanchezB.S. LAB URINE ORDERABLES Performing Organization Address City/State/ZIP Code Phon e Number [facility] - [address] [place], [place] [address] [facility] (ABNORMAL) Urinalysis with Microscopic: Urine, Clean Catch (02/14/2019 10:57 AM CDT) [facility] Time Signature Source Midstream 02/14/2019 10:57 AM CDT Appearance Normal Normal 02/14/2019 11:27 AM CDT Osmolality, U 412 150 - 1150 02/14/2019 mOsm/kg 12:21 PM CDT pH, U 5.4 4.5 - 8.0 02/14/2019 12:21 PM CDT Comment: ----ADDITIONAL INFORMATION---- This test was developed and its performa nce characteristics determined by [facility] in a manner co nsistent with [...] [facility] [address] [place], [place] [address] [facility] (ABNORMAL) Prothrombin Time (PT/INR) (02/14/2019 10:20 AM CDT) [facility] gist Method Time Signature Prothrombin 15.1 (H) 9.4 [...] [facility] [address] [place], [place] [address] [facility] (ABNORMAL) Alkaline Phosphatase, Total and Isoenzymes (02/14/2019 10:20 AM CDT) Patholo gist Method Time Signature Alkaline 302 (H) [...] Venous) AM CDT 10:41 AM CDT Narrative [facility] - 02/15/2019 12:05 PM CDT Specimen Information: Specimen ID: [id number] Specimen Type: Blood Specimen Collection Start Date: 02/15/20 19 10:20 AM Specimen Received Date: 02/14/2019 10:41 AM Specimen ID: [id number] Specimen Type: Blood Specimen Collection Start Date: 02/15/20 10:20 AM Specimen Received Date: 02/14/2019 11:22 AM Darwin Giles LAB BLOOD NON ADD-ON Performing Organization Address City/[facility] Phon e Number [facility] - [address] (ABNORMAL) PTH (Parathyroid Hormone) (02/14/2019 10:20 [...] Giles LAB BLOOD ADD-ON Performing Organization Address [facility] Phon e Number [facility] - [address] 25-Hydroxyvitamin D2 and D3 (02/14/2019 10:20 [...] and its performa nce characteristics determined by [facility] in a manner consistent with CLIA [...] Phon e Number [facility] [address] [place], [place] [address] [facility] Uric Acid (02/14/2019 10:20 AM CDT) P athologist Signature Uric Acid, S 6.2 3.7 - 8.0 02/14/2019 mg/dL 12:03 PM CDT Specimen Anatomical Collection Method Collection Time Receive d Time (Source) Location / / Volume Laterality Blood (Blood, 02/14/2019 10:20 02/14/2019 Venous) AM CDT 10:41 AM CDT Darwin Giles LAB BLOOD ADD-ON Performing Organization Address City/[facility]/ZIP Code Phon e Number [facility] - [address] [place] [address] [facility] (ABNORMAL) CBC with Differential (02/14/2019 10:20 AM [...] 02/14/2019 Venous) AM CDT 10:41 AM CDT Darwni Giles LAB BLOOD ADD-ON Performing Organization Address City/State/ZIP Code Phon e Number [facility] - [address] [place] [address] [facility] (ABNORMAL) Renal Function Panel (02/14/2019 10:20 AM CDT) Analysis Performed At Patho logist Time Signature Potassium, S 4.6 3.6 - 5.2 02/14/2019 mmol/L 12:03 PM CDT Sodium, S 142 135 - 145 02/14/2019 mmol/L 12:03 PM CDT Chloride, S 106 98 - 107 02/14/2019 mmol/L 12:03 PM CDT Bicarbonate, S 22 22 - 29 02/14/2019 mmol/L 12:03 PM CDT Anion Gap 14 7 - 15 02/14/2019 12:03 PM CDT BUN (Blood Urea 45 (H) 8 - 24 02/14/2019 Nitrogen), S mg/dL 12:03 PM CDT Creatinine 3.57 (H) 0.74 - 02/14/2019 1.35 mg/dL 12:03 PM CDT eGFR-Non 16 (L) >=60 02/14/2019 Black/ mL/min/BSA 12:03 PM CDT [place] Comment: ----ADDITIONAL INFORMATION---- Estimated GFR calculated using [...] [facility] [address] [place] [address] [facility] DX Chest AP or PA and Lateral [...]
--- OUTSIDE RECORDS SUMMARY | 2022-04-13 21:47 | XMS_ITS | Clinical Summary ---
:1940 Author Organization [facility] Address [address] [place] [address] Phone Care Team Providers Name Role Phone Harish Silver MD Primary Care Provider Encounters Date Type Specialty Care Team Description 03/30/2022 Orders Only Nephrology Sebastian Charles MD 03/30/2022 Treatment Sebastian Charles MD 03/02/2022 Orders Only NephSebastian Pandey MD 03/02/2022 Treatment Sebastian Charles MD 01/26/2022 Orders Only NephSebastian Pandey MD 01/26/2022 Treatment Sebastian Charles MD 01/12/2022 Orders Only NephSebastian Pandey MD from Last 3 Months Immunizations Name Administration Dates Next Due Hepatitis B 12/22/2008, 07/21/2008, 06/19/2008 Influenza (IM) Preservative Free 05/13/2011 Influenza Split High Dose Preservative 05/18/2016, 5, 05/16/2014 Free IM Influenza TIV (IM) 05/16/2013, 04/13/2012, 05/04/2010, 07/18/2007, 06/15/2006, 07/12/2002 Influenza, Quadrivalent, Preservative 06/13/2018 Free Influenza, Trivalent, Adjuvanted 05/28/2019, 05/09/2017 Influenza, Unspecified 05/06/2020 PPD Test 07/21/2008 Pneumococcal Conjugate 13-Valent 11/05/2014 Pneumococcal Polysaccharide 02/02/2009 Shingrix 02/14/2019, 12/11/2018 TD Preservative Free 03/18/2008 Tdap 07/10/2014 Zoster 04/08/2010 Family History Medical History Relation Comments Cancer Mother 2 Dementia Mother 2 Relation Status Comments Father Mother 1 Mother 2 Social History Tobacco Use Types Packs/Day Years Used Date Smoking Tobacco: Never Alcohol Use Standard Drinks/Week Comments No 0 (1 standard drink = 0.6 oz pure alcoho l) Sex Assigned at Date Recorded Not on file Plan of Treatment Health Maintenance Due Date Last Done Comments Hepatitis B Vaccine (4 of 4 - Risk 04/24/2009 12/22/2008, 1 09/21/2007, Engerix-B 4-dose series) 06/19/2008 Influenza Vaccine (#1) 2022 05/06/2020, 05/28/2019, 06/13/2018, Additional history exists Pneumococcal Vaccine: 65+ Years Completed 11/05/2014, 01/19 Procedures Procedure Name Priority Date/Time Associated Diagnosis Comme nts CHEMISTRY Routine 03/30/2022 Results for thi s procedure are i n the results section . HEMATOLOGY Routine 03/30/2022 Results for thi s procedure are i n the results section . PD ADEQUACY Routine 03/02/2022 Results for thi s procedure are i n the results section . CHEMISTRY Routine 03/02/2022 Results for thi s procedure are i n the results section . PATIENT INFORMATION Routine 03/02/2022 Results for this procedure are i n the results section . URINE CLEARANCE Routine 03/02/2022 Results for this [...] n the results section . HEMATOLOGY Routine 01/26/2022 Results for thi s procedure are i n the results section . CHEMISTRY Routine 01/26/2022 Results for thi s procedure are i n the results section . HEMATOLOGY Routine 01/12/2022 Results for thi s procedure are i n the results section . from Last 3 Months Results (ABNORMAL) HEMATOLOGY (03/30/2022)Only the most recent of4 resultswithin the time period is included. [facility] Method Time Signature WBC 6.97 4.80 - [...] 03/31/2022 Unless otherwise specified, test(s) performed at: [facility], [address] [place] [address], [place] [address] VICE PRESIDENT OF ADVERTISING: Dariel Doyle M.D., Ph.D For any questions, please call customer service at FREQUENCY:MONTHLY Resulting Agency Comment Specimen source: Blood Sebastian Charles MD LAB BLOOD ORDERABLES Performing Organization Address City/State/ZIP Code Phon e Number [facility] (ABNORMAL) [facility] Chemistry (03/30/2022)Only the most recent of4 resultswithin the time period is included. [facility] Method Time Signature BUN 76 (H) 6 [...] 03/31/2022 Unless otherwise specified, test(s) performed at: [facility], [address] [place] [address], [place] [address] VICE PRESIDENT OF ADVERTISING: Dariel Doyle M.D., Ph.D For any questions, [...] have been corrected fo r glucose interference. [facility] glucose correction factor f or creatinine is [...] e Number [facility] PD ADEQUACY (03/02/2022)Only the most recent of2 resultswithin the time period is included. P athologist Signature Kt/V, Residual 1.04 [facility] Creat Clear, 129 L/wk [facility] Urine Nor Wkly [facility] Specimen (Source) Anatomical Collection Method Collection Time Re ceived Time Location / / Volume Laterality 03/02/2022 03/03/2022 2:52 AM CDT Narrative [facility] - 03/03/2022 Unless otherwise specified, test(s) performed at: [facility], [address] [place] [address], [place] [address] VICE PRESIDENT OF ADVERTISING: Dariel Doyle M.D., Ph.D For any questions, please call customer service at FREQUENCY:MONTHLY Resulting Agency Comment Specimen source: Urine Sebastian Charles MD LAB BODY FLUIDS AND STOOLS O RDBEBE Performing Organization Address City/State/ZIP Code Phon e Number [facility] PATIENT INFORMATION (03/02/2022)Only the most recent of3 resultswithin the time period is included. P athologist Signature Patient BSA 1.90 sq. M. [facility] Comment: Normalized values are calculated using t he patient's actual BSA and normalized to the average BSA of 1.73m2. Specimen (Source) Anatomical Collection Method Collection Time Re ceived Time Location / / Volume Laterality 03/02/2022 03/03/2022 6:13 AM CDT Narrative [facility] - 03/03/2022 Unless otherwise specified, test(s) performed at: [facility], [address] [facility] [address] [facility], [place] [address] VICE PRESIDENT OF ADVERTISING: Dariel Doyle M.D., Ph.D For any questions, please call customer service at FREQUENCY:MONTHLY Resulting Agency Comment Specimen source: PD Fluid Sebastian Charles MD LAB BLOOD ORDERABLES Performing Organization Address City/State/ZIP Code Phon e Number [facility] from Last 3 Months Insurance Payer Benefit Plan / Subscriber ID Effective Dates Phone Addre ss Type Group [facility] MEDICARE AARP MEDICARE [id number] 2021-Presen [phone] [address] [address] COMPLETE t 0 [facility] ([id number]) [place] [address] Care Teams [employer] Employee Relationship Specialty Start Date End Date Harish Silver MD PCP - General 05/17/19 [address] [place] [address]
--- OUTSIDE RECORDS SUMMARY | 2022-04-13 21:47 | XMS_ITS | Encounter Summary ---
:1940 Author Organization [facility] Address [address] [place] [address] Care Team Providers Name Role Phone Unavailable Primary Care Provider Unavailable Encounter Details Date Type Department Care Team Description 07/30/2003 - Hospital Encounter HX RST SLEEP FLOOR Shivam, 08/06/2003 PRACTICE Juan Pablo Purdy M.D. [address] [place] [address] Social History Tobacco Use Types Packs/Day Years [...] How often do you attend religious or rastafarian More than 4 time s per year [...] or slept in a intermediate (including now)? Sex Assigned at Date Recorded Male 04/11/2022 12:05 PM CDT documented as of this encounter Plan of Treatment Upcoming Encounters Date Type Specialty Care Team Description 04/15/2022 Comprehensive Visit Cardiovascular Disease Kayla Heredia M.D. [address] [place] [phone] (Wo rk) documented as of this encounter Visit Diagnoses Not on filedocumented in this encounter
--- OUTSIDE RECORDS SUMMARY | 2022-04-13 21:47 | XMS_ITS | Encounter Summary ---
:1940 Author Organization [facility] Address [address] [place] [address] Care Team Providers Name Role Phone Unavailable [...] How often do you attend hinduism or uatsdin More than 4 time s per year 04/11/2022 services? Do you belong to any clubs or organizations Yes 04/11/2022 such as hinduism groups, unions, fraternal or [...] or slept in a longterm (including now)? Sex Assigned at Date Recorded Male 04/11/2022 12:05 PM CDT documented as of this encounter Plan of Treatment Upcoming Encounters Date Type Specialty Care Team Description 04/15/2022 Comprehensive Visit Cardiovascular Disease Kayla Heredia M.D. [address] [place] [address] (Wo rk) documented as of this encounter Visit Diagnoses Not on filedocumented in this encounter
--- OUTSIDE RECORDS SUMMARY | 2022-04-13 21:47 | XMS_ITS | Encounter Summary ---
:1940 Author Organization [facility] Address [address] [place] [address] Care Team Providers Name Role Phone Unavailable Primary Care Provider Unavailable Encounter Details Date Type Department Care Team Description 02/14/2019 Hospital Encounter Department of Marilin, Achalasi a; Laboratory Medicine Chicohankar, Cough Wi th Hemorrhage; and Pathology, M.B.B.S. Shortness Of Breath; [facility], in Dysphagi a; [facility] Gastroesophagea l Reflux Disease Without Esophagitis; [place] Laparoscopic Myotomy For Ach alasia Status Post; [address] [facility] Chronic Kidney Disease Stage 4 Glomerular Filtration Rate 15-29 (HCC) [place] [address] Social History Tobacco Use Types Packs/Day Years [...] How often do you attend confucianist or sikhism More than 4 time s per year 04/11/2022 services? Do you belong to any clubs or organizations Yes 04/11/2022 such as confucianist groups, unions, fraternal or [...] Cardiovascular Disease Kayla Heredia M.D. [address] [place] [phone] (Wo rk) documented as of this encounter [...] Prothrombin Time (PT/INR) (02/14/2019 10:20 AM CDT) [facility] Method Time Signature Prothrombin 15.1 (H) [...] Organization Address City/State/ZIP Code Phon e Number [facility] - [address] [place], [place] [address] [facility] (ABNORMAL) Alkaline Phosphatase, Total and Isoenzymes (02/14/2019 10:20 AM CDT) [facility] [employer] Method Time Signature Alkaline 302 (H) 40 [...] Venous) AM CDT 10:41 AM CDT Narrative [facility] - 02/15/2019 12:05 PM CDT Specimen Information: Specimen ID: [id number] Specimen Type: Blood Specimen Collection Start Date: 02/15/20 10:20 AM Specimen Received Date: 02/14/2019 10:41 AM Specimen ID: [id number] Specimen Type: Blood Specimen Collection Start Date: 02/15/20 10:20 AM Specimen Received Date: 02/14/2019 11:22 AM Darwin RicoSBailey LAB BLOOD NON ADD-ON Performing Organization Address City/[facility] Phon e Number [facility] - [address] (ABNORMAL) PTH (Parathyroid Hormone) (02/14/2019 10:20 [...] RicoS. LAB BLOOD ADD-ON Performing Organization Address City/[facility] Phon e Number [facility] - [address] 25-Hydroxyvitamin D2 and D3 (02/14/2019 10:20 [...] and its performa nce characteristics determined by [facility] in a manner consistent with CLIA requirements. This test has not been cleared or approved by the [place] d and Drug Administration. Specimen Anatomical Collection Method Collection Time Receive d Time (Source) Location / / Volume Laterality Blood (Blood, 02/14/2019 10:20 02/14/2019 1:36 Venous) AM CDT PM CDT Darwin SanchezB.S. LAB BLOOD ADD-ON Performing Organization Address City/State/ZIP Code Phon e Number [facility] [address] [place] [phone] [facility] Uric Acid (02/14/2019 10:20 AM CDT) athologist Signature Uric Acid, S 6.2 3.7 - 8.0 02/14/2019 mg/dL 12:03 PM CDT Specimen Anatomical Collection Method Collection Time Receive d Time (Source) Location / / Volume Laterality Blood (Blood, 02/14/2019 10:20 02/14/2019 Venous) AM CDT 10:41 AM CDT Darwin RicoS. LAB BLOOD ADD-ON Performing Organization Address City/State/ZIP Code Phon e Number [facility] - [address] [place] [address] [facility] [...] Organization Address City/State/ZIP Code Phon e Number [facility] - [address] [place], [place] [address] [facility] [...] >=60 02/14/2019 Black/ mL/min/BSA 12:03 PM CDT Burmese Comment: ----ADDITIONAL INFORMATION---- Estimated GFR calculated using [...] Organization Address City/State/ZIP Code Phon e Number [facility] - [address] [place], [place] [address] [facility] documented in this encounter Visit Diagnoses Diagnosis Achalasia Cough With Hemorrhage Shortness Of Breath Dysphagia Gastroesophageal Reflux Disease Without Esophagitis Laparoscopic Myotomy For Achalasia Statu s Post Chronic Kidney Disease Stage 4 Glomerula r Filtration Rate 15-29 (HCC) documented in this encounter
--- OUTSIDE RECORDS SUMMARY | 2022-04-13 21:47 | XMS_ITS | Encounter Summary ---
:1940 Author Organization [facility] Address [address] [place] [address] Care Team Providers Name Role Phone Unavailable [...] or relatives? How often do you attend lutheran or cheondoism More than 4 time s per year 04/11/2022 services? Do you belong to any clubs or organizations Yes 04/11/2022 such as lutheran groups, unions, fraternal or athletic groups, or [...] to sleep or slept in a senior living (including now)? Sex Assigned at Date Recorded Male 04/11/2022 12:05 PM CDT documented as of this encounter Plan of Treatment Upcoming Encounters Date Type Specialty Care Team Description 04/15/2022 Comprehensive Visit Cardiovascular Disease Kayla Heredia M.D. [address] [place] [address] (Wo rk) documented as of this encounter Procedures Procedure Name Priority Date/Time Associated Diagnosis Comme nts HXGENERAL PATHOLOGY Routine 06/25/2003 3:49 PM Re sults for this REPORT DIRECTOR EPIDEMIOLOGY procedure are i n the results section. EEG ROUTINE - AWAKE Routine 06/25/2003 8:13 AM Re sults for this AND SLEEP DIRECTOR EPIDEMIOLOGY procedure are i n the results section. MR BRAIN WITHOUT Routine 06/25/2003 7:31 AM Resul ts for this AND WITH IV DIRECTOR EPIDEMIOLOGY procedure are i n CONTRAST the results section. documented in this encounter Results Hx general Pathology Report (06/25/2003 3:49 PM DIRECTOR EPIDEMIOLOGY) Specimen Anatomical Collection Method Collection Time Receive d Time (Source) Location / / Volume Laterality 06/25/2003 3:49 PM 3 3:49 DIRECTOR EPIDEMIOLOGY PM DIRECTOR EPIDEMIOLOGY Narrative [facility] - 06/25/2003 3:49 PM DIRECTOR EPIDEMIOLOGY ?06/25/2003 General Biopsy ? ([id number]) ? Requested By: ??Ta Jasmine ??[phone] ? TISSUE DESCRIPTION: [id number] ?? A. ??Bulb, Duodenum biopsy: ??(1 piece 0.3 cm. in diameter) ?DIAGNOSIS: ?? Small bowel, duodenal bulb, nodule, end oscopic biopsy: ??Heterotopic fundic-type mucosa. ? 06/26/03 ??Rahel Woo M.D. [id number] ? Procedure Note 11/11/2017 06/25/2003 General Biopsy ([id number]) Requested By: Dieudonne Higgins M.D. [phone] TISSUE DESCRIPTION: [id number] A. Bulb, Duodenum biopsy: (1 piece 0.3 cm. in diameter) DIAGNOSIS: Small bowel, duodenal bulb, nodule, end oscopic biopsy: Heterotopic fundic-type mucosa. 06/26/03 Rahel Woo M.D. [id number] Historical Provider LAB PATHOLOGY/CYTOLOGY ORDER SHON Performing Organization Address City/State/ZIP Code Phon e Number [facility] - [address] [place], [place] [address] [facility] EEG routine - awake and sleep (06/25/2003 8:13 AM DIRECTOR EPIDEMIOLOGY) Specimen (Source) Anatomical Collection Method Collection Time Re ceived Time Location / / Volume Laterality 06/25/2003 8:13 AM DIRECTOR EPIDEMIOLOGY [facility] RADIOLOGY SYSTEM - 06/25/2003 8:13 AM DIRECTOR EPIDEMIOLOGY ?? 25 Jun 2003 ? Electroencephalography ?Final Report ? Referring Physician: ??Gen lenka Schaffer ??[id number] ?Date: ??25 Jun 2003 ?? EEG Manager Review: ? Micheal Lewis [phone] ?? Clinical Problem: ? Seizures ?? CLINICAL [...] right parasaggital regions (awake and ?? asleep); ??property assessment monitor. ?? REPORT: ??The recording during wakef [...] ?? breathing was observed during sleep. ??The property assessment monitor was unremarkable. Micheal Lewis (Signature date Jun 2003 12:12) Procedure Note Jos Lewis M.D. - 12/04/2017Formatting o f this note might be different from the original. 25 Jun 2003 Electroencephalography Fin al Report Referring Physician: Tyra Schaffer [id number] Date: 25 Jun 2003 EEG Manager Review: Micheal Lewis [id number] Clinical Problem: Seizures CLINICAL INTERPRETATION: The EEG [...] and right parasaggital regions (awake and asleep); property assessment monitor. REPORT: The recording during wakefulnes s [...] breathing was observed during sleep. Th e property assessment monitor was unremarkable. Micheal Lewis (Signature date Jun 2003 12:12) Tyra Schaffer M.D. NEUROLOGY ORDERABLES Performing Organization Address City/State/ZIP Code Phon e Number [facility] [address] [place] [address], U SA MR Brain without and with IV Contrast (06/25/2003 7:31 AM DIRECTOR EPIDEMIOLOGY) Anatomical Region Laterality Modality Head, Brain N/A Magnetic Resonance Specimen (Source) Anatomical Collection Method Collection Time Re ceived Time Location / / Volume Laterality 06/25/2003 7:31 AM DIRECTOR EPIDEMIOLOGY Narrative 06/25/2003 8:38 AM DIRECTOR EPIDEMIOLOGY 25-Jun-2003 07:31:00 ??Exam: MRI Hd wo&w Indications: mri head w/wo jonathon^s/p absce ss ORIGINAL REPORT - 25-Jun-2003 08:38:00 Head MRI without and with contrast, comp ared to 3-3-03. No significant change. PO changes right frontal [...] 117.200 ?? Dia.450 ?? Franci Starks MD [phone] ([id number]) ?? I have reviewed the films/images [...] without and with contrast, comp ared to 3-3-03. No significant change. PO changes right frontal [...] negative. Ind: 117.200 Dia.450 Franci Starks MD [phone] ([id number]) I have reviewed the films/images and agr ee with the above interpretation. Electronically signed by: Lizzette Varela M.D. [id number] 25-Jun-2003 08:36 Fede Castellanos M.D. IMMike MRI PROCEDURES documented in this encounter Visit Diagnoses Not on filedocumented in this encounter
--- OUTSIDE RECORDS SUMMARY | 2022-04-13 21:47 | XMS_ITS | Encounter Summary ---
:1940 Author Organization [facility] Address [address] [place] [address] Care Team Providers Name Role Phone Unavailable Primary Care Provider Unavailable Encounter Details Date Type Department Care Team Description 02/11/2019 Clinical Communication Division of [facility] eryn Li M.D.[place], [place] Ph.D. [address] [place] [phone] Social History Tobacco Use Types Packs/Day [...] How often do you attend restorationist or hindu More than 4 time s per year [...] or slept in a chcf (including now)? Sex Assigned at Date Recorded Male 04/11/2022 12:05 PM CDT documented as of this encounter Plan of Treatment Upcoming Encounters Date Type Specialty Care Team Description 04/15/2022 Comprehensive Visit Cardiovascular Disease Kayla Heredia M.D. [address] [place] [address] (Wo rk) documented as of this encounter Visit Diagnoses Not on filedocumented in this encounter
--- OUTSIDE RECORDS SUMMARY | 2022-04-13 21:47 | XMS_ITS | Encounter Summary ---
:1940 Author Organization [facility] Address [address] [place] [address] Care Team Providers Name Role Phone Unavailable Primary Care Provider Unavailable Reason for Visit Reason Onset Date Comments Esophageal 12/14/2018 pre orders Encounter Details Date Type Department Care Team Description 12/14/2018 Clinical Division of Devaughn Werner (pre Communication Gastroenterology in [place], [facility]) [place], [place] Ta., Ph.D. [address] [place] [phone] Social History Tobacco Use Types Packs/Day [...] How often do you attend hoahaoism or religion More than 4 time s per year 04/11/2022 services? Do you belong to any clubs or organizations Yes 04/11/2022 such as hoahaoism groups, unions, fraternal or [...] Cardiovascular Disease Kayla Heredia M.D. [address] [place] [phone] (Wo rk) documented as of this encounter Visit Diagnoses Not on filedocumented in this encounter
--- OUTSIDE RECORDS SUMMARY | 2022-04-13 21:47 | XMS_ITS | Encounter Summary ---
:1940 Author Organization [facility] Address [address] [place] [address] Care Team Providers Name Role Phone Unavailable Primary Care Provider Unavailable Encounter Details Date Type Department Care Team Description 02/14/2019 Hospital Encounter Department of Marilin, Achalasi a; Radiology, Danny Granados, Cough With Hemorrhage; Building, in [facility]; [facility]; [place] Gastroesophageal Reflux Dise ase Without Esophagitis; [address] [facility] Laparoscopic Myotomy For Ach alasia Status Post; [place], [place] Chronic Kidney Disease Stage 4 Glomerular Filtration Rate 15-29 ([facility]) [id number] Social History Tobacco Use Types Packs/Day Years [...] How often do you attend alevism or spiritism More than 4 time s per year 04/11/2022 services? Do you belong to any clubs or organizations Yes 04/11/2022 such as alevism groups, unions, fraternal or [...] place to sleep or slept in a assisted (including now)? Education Answer Date Recorded What [...] Visit Cardiovascular Disease Kayla Heredia M.D. [address] [place] [address] (Wo rk) documented as of this encounter [...] bilateral nonobstructing renal stones. Darwin Giles IMG PROCEDURES documented in this encounter Visit Diagnoses Diagnosis Achalasia Cough With Hemorrhage Shortness Of Breath Dysphagia Gastroesophageal Reflux Disease Without Esophagitis Laparoscopic Myotomy For Achalasia Statu s Post Chronic Kidney Disease Stage 4 Glomerula r Filtration Rate 15-29 (HCC) documented in this encounter
[2022-04-13 21:48] LABS: HCO3 VBG 37 mmol/L (21-28); PCO2 VBG 56 mmHG (40-50); PO2 VBG 37.8 mmHG (25-47); pH VBG 7.427 (7.32-7.43)
--- OUTSIDE RECORDS SUMMARY | 2022-04-13 21:48 | XMS_ITS | Encounter Summary ---
:1940 Author Organization [facility] Address [address] [place] [address] Care Team Providers Name Role Phone Harish Silver MD Primary Care Provider Encounter Details Date Type Department Care Team Description 09/22/2021 Orders Only [facility] Sebastian Mohan MD [address] [place] [address] [place], [place] [phone] [phone] (Wo rk) Social History Tobacco Use [...] Associated Diagnosis Comme nts IMMUNO CHEMISTRY Routine 09/22/2021 Results for this procedure are in the resu lts section. HEMATOLOGY Routine 09/22/2021 Results for thi s procedure are in the resu lts section. CHEMISTRY Routine 09/22/2021 Results for thi s procedure are in the resu lts section. CHEMISTRY Routine 09/22/2021 Results for thi s procedure are in the resu lts section. documented in this encounter Results (ABNORMAL) Spectrae Chemistry (09/22/2021) P athologist Signature PTH 154 (H) 16 - 80 APS SPECTRA pg/mL [facility] Specimen (Source) Anatomical Collection Method Collection Time Re ceived Time Location / / Volume Laterality 09/22/2021 09/23/2021 1:41 PM LEAD SOFTWARE QA ENGINEER Narrative APS SPECTRA [facility] - 09/24/2021 Unless otherwise specified, test(s) performed at: [facility], [address] [place] [id number] CARE MANAGER CNA: Steve Younger M.D. For any questions, please call customer service at FREQUENCY:MONTHLY Resulting Agency Comment Specimen source: Plasma Sebastian Charles MD LAB BLOOD ORDERABLES Performing Organization Address City/State/[facility] Phon e Number APS SPECTRA [facility] IMMUNO CHEMISTRY (09/22/2021) P athologist Signature Hep B Surface Negative Negative APS SPECTRA Ag [facility] Specimen (Source) Anatomical Collection Method Collection Time Re ceived Time Location / / Volume Laterality 09/22/2021 09/23/2021 3:00 PM LEAD SOFTWARE QA ENGINEER Narrative [facility]PS SPECTRA [facility] - 09/23/2021 Unless otherwise specified, test(s) performed at: [facility], [address] [place] [id number] CARE MANAGER CNA: Steve Younger M.D. For any questions, please call customer service at FREQUENCY:MONTHLY Resulting Agency Comment Specimen source: Serum Sebastian Charles MD LAB BLOOD ORDERABLES Performing Organization Address City/State/[facility] Code Phon e Number APS SPECTRA [facility] (ABNORMAL) Spectrae Chemistry (09/22/2021) Patholo gist Method Time Signature BUN 45 (H) 6 - 19 APS SPECTRA mg/dL [facility] Creatinine 3.40 (H) 0.60 - APS SPECTRA 1.30 mg/dL [facility] BUN/Creatinine 13.2 10.0 - APS SPECTRA Ratio 20.0 [facility] Sodium 143 136 - 145 APS SPECTRA mEq/L [facility] Potassium 3.1 (L) 3.5 - 5.1 APS SPECTRA mEq/L [facility] Chloride 100 96 - 108 APS SPECTRA mEq/L [facility] Bicarbonate 31 (H) 22 - 29 APS SPECTRA (CO2) mEq/L [facility] Calcium 8.7 8.4 - 10.2 APS SPECTRA mg/dL [facility] Corrected 8.9 8.4 - 10.2 APS SPECTRA Calcium mg/dL [facility] Comment: Corrected Calcium is not equivalent to m easured Ionized Calcium. Phosphorus 3.1 2.6 - 4.5 mg/dL APS SPECTRA K [facility] Calcium Phosphorus Product 27 0 - 54 APS SPECTRA [facility] Calcium Phosporus Product, Cor 28 0 - 54 APS SPECTRA [facility] Albumin 3.8 3.5 - 5.2 g/dL APS SPECT[facility] [place] Iron 62 45 - 160 mcg/dL APS SPECTRA [place] [facility] UIBC 278 155 - 355 mcg/dL APS SPECTRA K [facility] TIBC 340 185 - 515 mcg/dL APS SPECTRA K [facility] Iron Saturation (TSat) 18 (L) 20 - 55 % APS SPE CTRA [facility] Specimen (Source) Anatomical Collection Method Collection Time Re ceived Time Location / / Volume Laterality 09/22/2021 09/23/2021 3:00 PM LEAD SOFTWARE QA ENGINEER Narrative APS SPECTRA [facility] - 09/23/2021 Unless otherwise specified, test(s) performed at: [facility], [address] [place] [address] CARE MANAGER CNA: Steve Younger M.D. For any questions, please call customer service at FREQUENCY:MONTHLY Resulting Agency Comment Specimen source: Serum Sebastian Charles MD LAB BLOOD ORDERABLES Performing Organization Address City/State/ZIP Code Phon e Number APS SPECTRA [facility] (ABNORMAL) HEMATOLOGY (09/22/2021) [facility] gist Method Time Signature WBC 4.99 4.80 - APS SPECTRA 10.80 [facility] 1000/mcL RBC 3.63 (L) 4.70 - APS SPECTRA 6.10 [facility] mill/mcL Hemoglobin 12.1 (L) 14.0 - APS SPECTRA 18.0 g/dL [facility] Hemoglobin x 3 36.3 (L) 42.0 - APS SPECTRA 54.0 % [facility] Hematocrit 37.7 (L) 42.0 - APS SPECTRA 52.0 % [facility] MCV 104 (H) 80 - 100 APS SPECTRA fl [facility] MCH 33.3 (H) 27.0 - APS SPECTRA 31.0 pg [facility] MCHC 32.1 30.0 - APS SPECTRA 36.0 g/dL [facility] RDW 14.3 11.5 - APS SPECTRA 14.5 % [facility] Neutrophils 71.0 40.0 - APS SPECTRA 75.0 % [facility] Lymphocytes 11.0 (L) 19.0 - APS SPECTRA Relative 48.0 % [facility] Monocytes 6.6 3.0 - 10.0 APS SPECTRA % [facility] Eosinophils 8.0 (H) 0.0 - 7.0 APS SPECTRA Relative % [facility] Basophils 2.0 (H) 0.0 - 1.5 APS SPECTRA Relative % [facility] JUAN ANTONIO 1.4 0.0 - 4.0 APS SPECTRA % [facility] Specimen (Source) Anatomical Collection Method Collection Time Re ceived Time Location / / Volume Laterality 09/22/2021 09/23/2021 1:30 PM LEAD SOFTWARE QA ENGINEER Narrative APS SPECTRA [facility] - 09/23/2021 Unless otherwise specified, test(s) performed at: [facility], [address] [place] [id number] CARE MANAGER CNA: Steve Younger M.D. For any questions, please call customer service at FREQUENCY:MONTHLY Resulting Agency Comment Specimen source: Blood Sebastian Charles MD LAB BLOOD ORDERABLES Performing Organization Address City/State/ZIP Code Phon e Number [facility]PS [facility]PECT[facility] documented in this encounter Visit Diagnoses Not on filedocumented in this encounter Care Teams Public Health Director Relationship Specialty Start Date End Date Harish Silver MD PCP - General 05/17/19 [address] [place] [address] documented as of this encounter
--- OUTSIDE RECORDS SUMMARY | 2022-04-13 21:48 | XMS_ITS | Encounter Summary ---
:1940 Author Organization [facility] Address [address] [place] [address] Care Team Providers Name Role Phone Harish Silver MD Primary Care Provider Encounter Details Date Type Department Care Team Description 01/26/2022 Treatment [facility] Sebastian Jimenez MD [address] [place] [address] [place], [place] [phone] (Wo rk) Social History Tobacco Use Types Packs/Day Years Used Date Smoking Tobacco: Never Alcohol Use Standard Drinks/Week Comments No 0 (1 standard drink = 0.6 oz pure alcoho l) Sex Assigned at Date Recorded Not on file documented as of this encounter Miscellaneous Notes Dialysis Note - Sebastian Charles MD - 01/26/2022 12:18 PM CDT Date: Jan 26, 2022 Patient Name: David Castro : 1940 Chart #: [id number] Sex: M This patient was personally seen for a complete visit as part of routine monthly dialysis care. A review of the dialysis treatment, blood pressure, estimated dry weight, and recent lab values was made.These were discussed with the patient and staff as necessary. TEXTILE CUTTING MACHINE OPERATOR: Sebastian Charles MD LOCATION: [phone] SCHEDULE: No Routine Schedule Subjective 01/26/22: Georges feels fantastic, back like himself again. HE walked 5 miles with >10,000 steps [id number] already this morning. He has no orthopnea or SOB, wt is lower, dialysis is going very well, and he has his liquid diet figured out and is tolerating protein powder and liquicel. He has no concerns at all today and is very pleased since feeling much better after IV iron infusion at the [facility] that we had arranged. 12/22/21: Georges was unfortunately hospitalized twice since our last visit. He went home and was very weak after I saw him last month on 12/01, went to ER and was admitted at [facility] from 12/02-12/08, had empyemaand chest tube was [...] Exam Respiratory - Clear to auscultation bilaterally. sound better Cardiovascular - Regular rate. Regular rhythm. Gastrointestinal [...] made. Treatment and Adequacy Assessment BUN mg/dL 34 (12/22/21) 57 (12/01/21) 77 (11/10/21) CREATININE (MG/DL) IN SER/PLAS mg/dL 3.38 (12/22/21) 3.65 (12/01/21) 4.40 (11/10/21) KT/V, PERITONEAL L/wk 0.70 (11/10/21) 1.15 (10/19/21) KT/V, RESIDUAL L/wk 1.37 (11/10/21) 1.10 (10/19/21) Kt/V is adequate. Continue current prescription. Repeat adequacy next month Peritoneal Dialysis Access Assessment Placed on: 07/[address] Kaur No further leaking from PD cath site Anemia Assessment HEMOGLOBIN (G/DL) IN BLOOD g/dL 10.7 (01/12/22) 8.3 (12/22/21) 11.0 (12/01/21) WBC (BLOOD) 1000/mcL 6.40 (12/22/21) 6.62 (12/01/21) 7.38 (10/19/21) IRON SATURATION % 7 (12/22/21) 12 (12/01/21) 18 (10/19/21) FERRITIN ng/mL 66 (12/01/21) 31 (09/13/21) Hemoglobin is at goal. Iron Saturation is below goal. Ferritin is below goal. Will adjust SIRISHA and intravenous iron. He had two infusions of Feraheme 510mg at [facility], will repeat Hgb and iron studies but Hgb late last month already markedly better Nutritional and Metabolic Assessment ALBUMIN (G/DL) g/dL 2.7 (12/22/21) 3.1 (12/01/21) 3.5 (10/19/21) BICARBONATE (CO2) mEq/L 28 (12/22/21) 32 (12/01/21) 28 (10/19/21) POTASSIUM (MMOL/L) IN SER/PLAS mEq/L 4.0 (12/22/21) 4.3 (12/01/21) 3.8 (10/19/21) Sodium mEq/L 140 (12/22/21) 141 (12/01/21) 141 (10/19/21) 25 OH VITAMIN D ng/mL 37.5 (09/13/21) Albumin is below goal. Encourage high biological value protein intake. Oral nutritional supplement program. Potassium is at goal. He has now figured out liquid diet and tolerating liquid and powder protein. Repeat albumin today, hopefully now improving Bone and Mineral Metabolism Assessment Calcium mg/dL 7.9 (12/22/21) 8.5 (12/01/21) 8.4 (10/19/21) CALCIUM (MG/DL) CORRECTED FOR ALBUMIN IN SER/PLAS mg/dL 8.9 (12/22/21) 9.2 (12/01/21) 8.8 (10/19/21) CALCIUM PHOSPHORUS PRODUCT, COR 29 (12/22/21) 34 (12/01/21) 37 (10/19/21) PHOSPHATE (MG/DL) IN SER/PLAS mg/dL 3.3 (12/22/21) 3.7 (12/01/21) 4.2 (10/19/21) IPTH pg/mL 190 (12/01/21) 154 (09/22/21) 188 (09/13/21) Corrected calcium is at goal. Phosphorus is at goal. Intact PTH is at goal. Cardiovascular Assessment Blood pressure reviewed and is acceptable. Continue same cardiovascular medications. Estimated dry weight is appropriate. Continue all 1.5% bags Transplant Status Patient declined to be evaluated. He was evaluated on past, on hold for years, now advanced age and he has elected to not pursue any further given risks associated with transplant and his GI issues as well. Resuscitation Status Additional Comments: He is now doing fantastic, much better overall He appears euvolemic Tolerating CCPD very well Appetite and diet improved, tolerating liquid and powder protein and hoping to see albumin improvingnow Labs drawn today, will review Sebastian Charles MD [ Signed And locked electronically On 01/26/2022 at 12:22:35 PM ] Transcribed: Sebastian Charles ( 01/26/2022 ) documented in this encounter Plan of Treatment Not on filedocumented as of this encounter Visit Diagnoses Not on filedocumented in this encounter Care Teams Cleaning Manager Relationship Specialty Start Date End Date Harish Silver MD PCP - General 05/17/19 [address] [place] [address] documented as of this encounter
--- OUTSIDE RECORDS SUMMARY | 2022-04-13 21:48 | XMS_ITS | Encounter Summary ---
:1940 Author Organization [facility] Address [address] [place] [address] Care Team Providers Name Role Phone Harish Silver MD Primary Care Provider Encounter Details Date Type Department Care Team Description 09/13/2021 Orders Only [facility] O f Sebastian Mohan MD [phone] [place] [address] [place], [place] [phone] (Wo rk) Social History Tobacco Use Types Packs/Day Years Used Date Smoking Tobacco: Never Alcohol Use Standard Drinks/Week Comments No 0 (1 standard drink = 0.6 oz pure alcoho l) Sex Assigned at Date Recorded Not on file documented as of this encounter Plan of Treatment Not on filedocumented as of this encounter Procedures Procedure Name Priority Date/Time Associated Diagnosis Comme nts SPECIAL CHEMISTRY Routine 09/13/2021 Results fo r this procedure are in the resu lts section. IMMUNO CHEMISTRY Routine 09/13/2021 Results for this procedure are in the resu lts section. TRACE ELEMENTS Routine 09/13/2021 Results for t his procedure are in the resu lts section. HEMATOLOGY Routine 09/13/2021 Results for thi s procedure are in the resu lts section. CHEMISTRY Routine 09/13/2021 Results for thi s procedure are in the resu lts section. CHEMISTRY Routine 09/13/2021 Results for thi s procedure are in the resu lts section. documented in this encounter Results (ABNORMAL) HEMATOLOGY (09/13/2021) [facility] Method Time Signature WBC 6.99 4.80 - [facility] 10.80 [facility] 1000/mcL RBC 3.93 (L) 4.70 - [facility] 6.10 [facility] mill/mcL Hemoglobin 12.5 (L) 14.0 - [facility] 18.0 g/dL [facility] Hemoglobin x 3 37.5 (L) 42.0 - [facility] 54.0 % [facility] Hematocrit 40.3 (L) 42.0 - [facility] 52.0 % [facility] MCV 102 (H) 80 - 100 [facility] fl [facility] MCH 31.9 (H) 27.0 - [facility] 31.0 pg [facility] MCHC 31.1 30.0 - [facility] 36.0 g/dL [facility] RDW 14.5 11.5 - [facility] 14.5 % [facility] Neutrophils 64.7 40.0 - [facility] 75.0 % [facility] Lymphocytes 12.2 (L) 19.0 - [facility] Relative 48.0 % [facility] Monocytes 8.0 3.0 - 10.0 [facility] % [facility] Eosinophils 12.1 (H) 0.0 - 7.0 [facility] Relative % [facility] Basophils 1.5 0.0 - 1.5 [facility] Relative % [facility] JUAN ANTONIO 1.6 0.0 - 4.0 [facility] % [facility] Specimen (Source) Anatomical Collection Method Collection Time Re ceived Time Location / / Volume Laterality 09/13/2021 09/14/2021 8:39 PM SHINGLE PACKER Narrative [facility] - 09/14/2021 Unless otherwise specified, test(s) performed at: [facility], [address] [place] [address] BUDGET CONTROLLER: Steve Younger M.D. For any questions, please call customer service at FREQUENCY:MONTHLY Resulting Agency Comment Specimen source: Blood Sebastian Charles MD LAB BLOOD ORDERABLES Performing Organization Address City/State/ZIP Code Phon e Number [facility] TRACE ELEMENTS (09/13/2021) athologist Signature Aluminum <5 0 - 10 [facility] mcg/L [facility] Comment: This test was developed and its performa nce characteristics determined by [facility]. It has not been cleared or approved by the FDA. The laboratory is regulated under CLIA a s qualified to perform high complexity testing. This test is used fo r clinical purposes. It should not be regarded as investigational or fo r research. Specimen (Source) Anatomical Collection Method Collection Time Re ceived Time Location / / Volume Laterality 09/13/2021 09/14/2021 1:33 PM SHINGLE PACKER Narrative [facility] - 09/14/2021 Unless otherwise specified, test(s) performed at: [facility], [address] [place], [place] [id number] BUDGET CONTROLLER: Steve Younger M.D. For any questions, please call customer service at FREQUENCY:MONTHLY Resulting Agency Comment Specimen source: Serum Sebastian Charles MD LAB BLOOD ORDERABLES Performing Organization Address City/State/ZIP Code Phon e Number [facility] (ABNORMAL) SPECIAL CHEMISTRY (09/13/2021) Analysis Performed At Patho logist Time Signature Vitamin B-12 1,233 (H) 211 - 911 [facility] pg/mL [facility] Vitamin D, 37.5 30.0 - [facility] 25-OH, Total 100.0 [facility] ng/mL Comment: Vitamin D Status Classification: Deficiency ? <10.0 ng/mL Insufficiency ?10.0-30.0 ng/mL Sufficiency ?30.0-100.0 ng/mL Toxicity ? >100.0 ng/mL Specimen (Source) Anatomical Collection Method Collection Time Re ceived Time Location / / Volume Laterality 09/13/2021 09/14/2021 1:06 PM SHINGLE PACKER Narrative [facility] - 09/14/2021 Unless otherwise specified, test(s) performed at: [facility], [address] [place], [place] [id number] BUDGET CONTROLLER: Steve Younger M.D. For any questions, please call customer service at FREQUENCY:MONTHLY Resulting Agency Comment Specimen source: Serum Sebastian Charles MD LAB BLOOD BANK TEST ORDERABL ES Performing Organization Address City/[facility]/ZIP [facility] Phon e Number [facility] IMMUNO CHEMISTRY (09/13/2021) P athologist Signature Hep B Surface Negative Negative [facility] Ag [facility] Hepatitis B >1,000 mIU/mL [facility] Surface Ab [facility] Comment: The anti-HBs (Hepatitis B surface antibo dy) is greater than or equal to 10 mIU/mL and implies immunity. The hardik ent has either had an antibody response to HBV vaccination, received a transfusion, or has recovered from HBV infection. For post-vaccination antibody testing guidelines for the general public, refer to MMWR Dece 2004/Vol.54 (No. 16); 09-12, and for healthcare workers, refer to MMWR August 09, 2013/Vol.62 (No. 10); -18. Reference Range: <10 mIU/mL ? Non-Immune >=10 mIU/mL ?Immune The magnitude of the measured result abo ve 10 mIU/mL is not indicative of the total amount of antibody present. Hep B Core Total Ab Negative Negative [facility]PS SPECTR A [facility] Comment: Hep B Core Ab, Total appears during the acute infection stage and remains reactive/positive throughout the recovery stage. The above test result was obtained using Siemens Centaur XP chemiluminescent method. Results obtaine d with different assay methods or kits cannot be used interchangeably. Hepatitis C Antibody Nonreactive Nonreactive APS S PECTRA [facility] Comment: No HCV antibody detected. The above test result was obtained using Siemens Centaur XP chemiluminescent method. Results obtaine d with different assay methods or kits cannot be used interchangeably. S/CO Ratio 0.07 0.00 - 0.79 [facility] Comment: s/co ratio ?Interpretation ?Supplemental testing <0.80 ? Nonreactive ? No further testing required. 0.80-0.99 ? Equivocal ? HCV RNA Quantitative Real-Time PCR is recommended. 1.00->11.00 ?? Reactive ?HCV RNA Quantitative Real-Time PCR is recommended to distinguish active from resolved cases. Specimen (Source) Anatomical Collection Method Collection Time Re ceived Time Location / / Volume Laterality 09/13/2021 09/14/2021 1:06 PM SHINGLE PACKER Resulting Agency Comment Specimen source: Serum Sebastian Charles MD LAB BLOOD ORDERABLES Performing Organization Address City/State/ZIP Code Phon e Number [facility]PS [facility] (ABNORMAL) Spectrae Chemistry (09/13/2021) [facility] gist Method Time Signature BUN 73 (H) 6 - 19 [facility] mg/dL [facility] Creatinine 4.33 (H) 0.60 - [facility] 1.30 mg/dL [facility] BUN/Creatinine 16.9 10.0 - [facility] Ratio 20.0 [facility] Sodium 139 136 - 145 [facility] mEq/L [facility] Potassium 3.5 3.5 - 5.1 [facility] mEq/L [facility] Chloride 102 96 - 108 [facility] mEq/L [facility] Bicarbonate 24 22 - 29 [facility] (CO2) mEq/L [facility] Calcium 9.0 8.4 - 10.2 [facility] mg/dL [facility] Corrected 8.8 8.4 - 10.2 [facility] Calcium mg/dL [facility] Comment: Corrected Calcium is not equivalent to m easured Ionized Calcium. Phosphorus 4.2 2.6 - 4.5 mg/dL [facility]PS S[facility] Calcium Phosphorus Product 38 0 - 54 [facility] Calcium Phosporus Product, Cor 37 0 - 54 [facility] Alkaline Phosphatase 243 (H) 40 - 129 U/L APS SP ECTRA [facility] Albumin 4.2 3.5 - 5.2 g/dL [facility] [place] Magnesium 2.4 1.6 - 2.6 mg/dL [facility] Iron 42 (L) 45 - 160 mcg/dL [facility] UIBC 333 155 - 355 mcg/dL [facility] TIBC 375 185 - 515 mcg/dL APS [facility]PECTRA K [facility] Iron Saturation (TSat) 11 (L) 20 - 55 % APS SPE CTRA [facility] Ferritin 31 22 - 322 ng/mL [facility] [place] Specimen (Source) Anatomical Collection Method Collection Time Re ceived Time Location / / Volume Laterality 09/13/2021 09/14/2021 1:06 PM SHINGLE PACKER Narrative [facility]PS [facility] - 09/14/2021 Unless otherwise specified, test(s) performed at: [facility], [address] [place] [address] BUDGET CONTROLLER: Steve Younger M.D. For any questions, please call customer service at FREQUENCY:MONTHLY Resulting Agency Comment Specimen source: Serum Sebastian Charles MD LAB BLOOD ORDERABLES Performing Organization Address City/State/ZIP Code Phon e Number [facility]PS [facility]RA [facility] (ABNORMAL) Spectrae Chemistry (09/13/2021) P athologist Signature PTH 188 (H) 16 - 80 [facility] pg/mL [facility] Specimen (Source) Anatomical Collection Method Collection Time Re ceived Time Location / / Volume Laterality 09/13/2021 09/14/2021 1:13 PM SHINGLE PACKER Narrative [facility] - 09/14/2021 Unless otherwise specified, test(s) performed at: [facility], [address] [place] [address] BUDGET CONTROLLER: Steve Younger M.D. For any questions, please call customer service at FREQUENCY:MONTHLY Resulting Agency Comment Specimen source: Plasma Sebastian Charles MD LAB BLOOD ORDERABLES Performing Organization Address City/State/ZIP Code Phon e Number [facility] documented in this encounter Visit Diagnoses Not on filedocumented in this encounter Care Teams Cigar Patcher Relationship Specialty Start Date End Date Harish Silver MD PCP - General 05/17/19 [address] [place] [address] documented as of this encounter
--- OUTSIDE RECORDS SUMMARY | 2022-04-13 21:48 | XMS_ITS | Encounter Summary ---
:1940 Author Organization [facility] Address [address] [place] [address] Care Team Providers Name Role Phone Harish Silver MD Primary Care Provider Encounter Details Date Type Department Care Team Description 10/06/2021 Orders Only [facility] O f Sebastian Mohan MD [phone] [place] [address] [place], [place] [phone] (Wo rk) Social History Tobacco Use [...] / Volume Laterality 10/06/2021 10/07/2021 8:46 PM MARKETING MANAGER HEALTH COMMUNICATIONS Narrative [facility] - 10/08/2021 Unless otherwise specified, test(s) performed at: [facility], [address] [place] [id number] HOTEL SECURITY OFFICER: Steve Younger M.D. For any questions, please call customer service at FREQUENCY:OTHER Resulting Agency Comment Specimen source: Serum Sebastian Charles MD LAB BLOOD ORDERABLES Performing Organization Address City/State/ZIP Code Phon e Number [facility] documented in this encounter Visit Diagnoses Not on filedocumented in this encounter Care Teams Wood Experimental Mechanic Relationship Specialty Start Date End Date Harish Silver MD PCP - General 05/17/19 [address] [place] [place] [address] documented as of this encounter
--- OUTSIDE RECORDS SUMMARY | 2022-04-13 21:48 | XMS_ITS | Encounter Summary ---
:1940 Author Organization [facility] Address [address] [place] [address] Care Team Providers Name Role Phone Harish Silver MD Primary Care Provider Encounter Details Date Type Department Care Team Description 05/25/2021 Documentation Only [facility] [place] Maxwell MD [place] [address] [place] [address] [address] [place] [address] Social History Tobacco Use Types Packs/Day Years Used Date Smoking Tobacco: Never Alcohol Use Standard Drinks/Week Comments No 0 (1 standard drink = 0.6 oz pure alcoho l) Sex Assigned at Date Recorded Not on file documented as of this encounter Plan of Treatment Not on filedocumented as of this encounter Visit Diagnoses Not on filedocumented in this encounter Care Teams Grid Inspector Relationship Specialty Start Date End Date Harish Silver MD PCP - General 05/17/19 [address] [place] [address] documented as of this encounter
--- OUTSIDE RECORDS SUMMARY | 2022-04-13 21:48 | XMS_ITS | Encounter Summary ---
:1940 Author Organization [facility] Address [address] [place] [address] Care Team Providers Name Role Phone Harish Silver MD Primary Care Provider Encounter Details Date Type Department Care Team Description 03/02/2022 Orders Only [facility] O f Sebastian Mohan MD [phone] [place] [address] [place], [place] [phone] (Wo rk) Social History Tobacco Use [...] 03/03/2022 Unless otherwise specified, test(s) performed at: [facility], [address] [place] [address], [place] [address] CAR DUMPER OPERATOR HELPER: Dariel Doyle M.D., Ph.D For any questions, [...] MD LAB BLOOD ORDERABLES Performing Organization Address [facility] Code Phon e Number [facility] [...] 03/03/2022 Unless otherwise specified, test(s) performed at: [facility], [address] [place] [address], [place] [address] CAR DUMPER OPERATOR HELPER: Dariel Doyle M.D., Ph.D For any questions, please call customer service at FREQUENCY:MONTHLY Resulting Agency Comment Specimen source: PD Fluid Sebastian Charles MD LAB BLOOD ORDERABLES Performing Organization Address City/[facility]/ZIP Code Phon e Number [facility] [...] have been corrected fo r glucose interference. [facility] glucose correction factor f or creatinine is [...] Resulting Agency Comment Specimen source: PD Fluid eSbastian Charles MD LAB BODY FLUIDS AND STOOLS [...] 03/03/2022 Unless otherwise specified, test(s) performed at: [facility], [address] [place] [address] [place] [address] CAR DUMPER OPERATOR HELPER: Dariel Doyle M.D., Ph.D For any questions, [...] 03/03/2022 Unless otherwise specified, test(s) performed at: [facility], [address] [place] [address], [place] [address] CAR DUMPER OPERATOR HELPER: Dariel Doyle M.D., Ph.D For any questions, [...] 03/03/2022 Unless otherwise specified, test(s) performed at: [facility], [address] [place] [address], [place] [address] CAR DUMPER OPERATOR HELPER: Dariel Doyle M.D., Ph.D For any questions, please call customer service at FREQUENCY:MONTHLY Resulting Agency Comment Specimen source: Blood Sebastian Charles MD LAB BLOOD ORDERABLES Performing Organization Address City/[facility] Phon e Number [facility]PS SPECTRA [facility] (ABNORMAL) Spectrae Chemistry (03/02/2022) P athologist Signature PTH 263 (H) 16 - 80 [facility] pg/mL [facility] Specimen (Source) Anatomical Collection Method Collection Time Re ceived Time Location / / Volume Laterality 03/02/2022 03/03/2022 2:44 AM CDT Narrative [facility] - 03/03/2022 Unless otherwise specified, test(s) performed at: [facility], [address] [place] [address], [place] [address] CAR DUMPER OPERATOR HELPER: Dariel Doyle M.D., Ph.D For any questions, please call customer service at FREQUENCY:MONTHLY Resulting Agency Comment Specimen source: Plasma Sebastian Charles MD LAB BLOOD ORDERABLES Performing Organization Address City/[facility] Phon e Number APS SPECTRA [facility] [...] 03/03/2022 Unless otherwise specified, test(s) performed at: [facility], [address] [place], [place] [address] [address] CAR DUMPER OPERATOR HELPER: Dariel Doyle M.D., Ph.D For any questions, please call customer service at FREQUENCY:MONTHLY Resulting Agency Comment Specimen source: PD Fluid Sebastian Charles MD LAB BLOOD ORDERABLES Performing Organization Address City/State/ZIP Code Phon e Number [facility] documented in this encounter Visit Diagnoses Not on filedocumented in this encounter Care Teams Web Project Manager Relationship Specialty Start Date End Date Harish Silver MD PCP - General 05/17/[address] [facility] [place] [place] [address] documented as of this encounter
--- OUTSIDE RECORDS SUMMARY | 2022-04-13 21:48 | XMS_ITS | Encounter Summary ---
:1940 Author Organization [facility] Address [address] [place] [address] Care Team Providers Name Role Phone Harish Silver MD Primary Care Provider Encounter Details Date Type Department Care Team Description 10/27/2021 Treatment [facility] Sebastian Jimenez MD [address] [place] [address] [place], [place] [phone] (Wo rk) Social History Tobacco Use Types Packs/Day Years Used Date Smoking Tobacco: Never Alcohol Use Standard Drinks/Week Comments No 0 (1 standard drink = 0.6 oz pure alcoho l) Sex Assigned at Date Recorded Not on file documented as of this encounter Miscellaneous Notes Dialysis Note - Sebastian Charles MD - 10/27/2021 5:02 PM CST Date: Oct 27, 2021 Patient Name: David Castro : 1940 Chart #: [id number] Sex: M This patient was personally seen for a complete visit as part of routine monthly dialysis care. A review of the dialysis treatment, blood pressure, estimated dry weight, and recent lab values was made.These were discussed with the patient and staff as necessary. CYBER SECURITY: Sebastian Charles MD LOCATION: [phone] SCHEDULE: No Routine Schedule Subjective 10/27/21: Georges is feeling great, edema resolved, [...] soft, non-tender. Edema - No leg edema. improved PD catheter exit site - looks excellent, no erythema, small scab present Tubing looks intact without cracks Medication List Medication Sig Start Date allopurinol 100 mg tablet Take 1 tablet by mouth once a day amlodipine 5 mg tablet Take 1 tablet by mouth once a day amoxicillin 500 mg capsule Take 4 capsule by mouth once a day as directed. 1 hour before dental procedure. calcitriol 0.25 mcg capsule Take 1 capsule by mouth three times a week. -W- hydralazine 10 mg tablet Take 1 tablet [...] made. Treatment and Adequacy Assessment BUN mg/dL 74 (10/19/21) 45 (09/22/21) 73 (09/13/21) CREATININE (MG/DL) IN SER/PLAS mg/dL 4.34 (10/19/21) 3.40 (09/22/21) 4.33 (09/13/21) KT/V, PERITONEAL L/wk 1.15 (10/19/21) KT/V, RESIDUAL L/wk 1.10 (10/19/21) Kt/V is adequate. Adequacy was excellent with 8L of fluid on CAPD. Will now be doing CCPD, will repeat adequacy when up and running on this. Peritoneal Dialysis Access Assessment Placed on: 07/[address] Kaur Leaking slightly as above Anemia Assessment HEMOGLOBIN (G/DL) IN BLOOD g/dL [...] He is now doing excellent on PD Rested peritoneum for 4 days given small leaking at exit site of clear fluid, 1500 mL fills for now with cycler training and monitor for any further leaking. Exit site looks excellent today Labs reviewed and adequate, dry weight being lowered today Sebastian Charles MD [ Signed And locked electronically On 10/27/2021 at 05:07:05 PM ] Transcribed: Sebastian Charles ( 10/27/2021 ) documented in this encounter Plan of Treatment Not on filedocumented as of this encounter Visit Diagnoses Not on filedocumented in this encounter Care Teams Edge Worker Relationship Specialty Start Date End Date Harish Silver MD PCP - General 05/17/19 [address] [place] [address] documented as of this encounter
--- OUTSIDE RECORDS SUMMARY | 2022-04-13 21:48 | XMS_ITS | Encounter Summary ---
:1940 Author Organization [facility] Address [address] [place] [address] Care Team Providers Name Role Phone Harish Silver MD Primary Care Provider Encounter Details Date Type Department Care Team Description 01/12/2022 Orders Only [facility] f Sebastian Mohan MD [phone] [place] [address] [place], [place] [phone] (Wo rk) Social History Tobacco Use [...] 01/13/2022 Unless otherwise specified, test(s) performed at: [facility], [address] [place] [id number] DOOR ATTENDANT: Steve Younger M.D. For any questions, please call customer service at FREQUENCY:OTHER Resulting Agency Comment Specimen source: Blood Sebastian Charles MD LAB BLOOD ORDERABLES Performing Organization Address City/State/ZIP Code Phon e Number [facility] documented in this encounter Visit Diagnoses Not on filedocumented in this encounter Care Teams Wastewater Plant Civil Engineer Relationship Specialty Start Date End Date Harish Silver MD PCP - General 05/17/19 [address] [place] [address] documented as of this encounter
--- OUTSIDE RECORDS SUMMARY | 2022-04-13 21:48 | XMS_ITS | Encounter Summary ---
:1940 Author Organization [facility] Address [address] [place] [address] Care Team Providers Name Role Phone Harish Silver MD Primary Care Provider Encounter Details Date Type Department Care Team Description 09/15/2021 Treatment [facility] Sebastian Jimenez MD [address] [place] [place] [address] [place], [place] [phone] (Wo rk) Social History Tobacco Use Types Packs/Day Years Used Date Smoking Tobacco: Never Alcohol Use Standard Drinks/Week Comments No 0 (1 standard drink = 0.6 oz pure alcoho l) Sex Assigned at Date Recorded Not on file documented as of this encounter Miscellaneous Notes External Note - Sebastian Charles MD - 09/15/2021 12:00 AM CST Date: Sep 15, 2021 Patient Name: David Castro : 1940 Chart #: [id number] Sex: M Has the patient previously been receiving In-Center hemodialysis? No Has the patient participated in all recommended training? Yes. Access site is ready for patient to start home dialysis? Yes. Physician has discussed the following: X Home environment requirements have been reviewed with patient by training personnel. X Pt understands importance of maintaining proper environment at home. X Reviewed PD drug therapy. X Reviewed medications and adjusted them, if needed. X Pt is progressing in training according to the training plan. X Reviewed constipation and infection protocols. X Possible emergency scenarios discussed with patient. X Pt understands how to handle fluid overload. X Discussed manual drain and what to expect at home. X Discussed peritonitis risk, how to recognize symptoms and signs of peritonitis, and how to respond accordingly. X Pt understands who to contact in an emergency. X Physical exam completed. Abdomen is soft and non-tender, bowel sounds are normal, catheter exit site and tunnel look healthy. Physician has observed the following: X physician monitored technique and observed patient on PD during a manual exchange and answered questions during the exchange. X pt and caregive have a good understanding and adequate technique of bp monitoring, exit site care, and machine alarms and alerts. X I have answered all of the patient's and family's questions. Patient is progressing nicely, learned quickly, tolerating exchanges well, understands importance ofsterile technique, has good questions and all answered. X Patient ready to do treatment at home. Sebastian Charles MD [ Signed And locked electronically On 09/15/2021 at 11:09:56 AM ] Transcribed: Sebastian Charles ( 09/15/2021 ) documented in this encounter Plan of Treatment Not on filedocumented as of this encounter Visit Diagnoses Not on filedocumented in this encounter Care Teams Vault Mechanic Relationship Specialty Start Date End Date Harish Silver MD PCP - General 05/17/19 [address] [place] [address] documented as of this encounter
--- OUTSIDE RECORDS SUMMARY | 2022-04-13 21:48 | XMS_ITS | Encounter Summary ---
:1940 Author Organization [facility] Address [address] [place] [address] Care Team Providers Name Role Phone Harish Silver MD Primary Care Provider Encounter Details Date Type Department Care Team Description 03/02/2022 Treatment [facility] Sebastian Jimenez MD [address] [place] [place] [address] [place], [place] [phone] (Wo rk) Social History Tobacco Use Types [...] Name: David Castro : 1940 Chart #: [id number] Sex: M This patient was personally seen for a complete visit as part of routine monthly dialysis care. A review of the dialysis treatment, blood pressure, estimated dry weight, and recent lab values was made.These were discussed with the patient and staff as necessary. NEEDLE CONTROL CHENILLER: Sebastian Charles MD LOCATION: [phone] SCHEDULE: No Routine Schedule Subjective 03/02/22: Georges [...] HE walked 5 miles with >10,000 steps [id number] already this morning. He has no orthopnea or SOB, wt is lower, dialysis is going very well, and he has his liquid diet figured out and is tolerating protein powder and liquicel. He has no concerns at all today and is very pleased since feeling much better after IV iron infusion at the [facility] that we had arranged. 12/22/21: Georges was unfortunately hospitalized twice since our last visit. He went home and was very weak after I saw him last month on 12/01, went to ER and was admitted at [facility] from 12/02-12/08, had empyemaand chest tube was [...] on filedocumented in this encounter Care Teams Air Traffic Control Specialist Center Relationship Specialty Start Date End Date Harish Silver MD PCP - General 05/17/19 [address] [place] [address] documented as of this encounter
--- OUTSIDE RECORDS SUMMARY | 2022-04-13 21:48 | XMS_ITS | Encounter Summary ---
:1940 Author Organization [facility] Address [address] [place] [address] Care Team Providers Name Role Phone Harish Silver MD Primary Care Provider Encounter Details Date Type Department Care Team Description 10/19/2021 Orders Only [facility] Sebastian Mohan MD [phone] [place] [address] [place], [place] [phone] (Wo rk) Social History Tobacco Use Types Packs/Day Years Used Date Smoking Tobacco: Never Alcohol Use Standard Drinks/Week Comments No 0 (1 standard drink = 0.6 oz pure alcoho l) Sex Assigned at Date Recorded Not on file documented as of this encounter Plan of Treatment Not on filedocumented as of this encounter Procedures Procedure Name Priority Date/Time Associated Diagnosis Comme nts P.E.T. UREA NITROGEN, PDF Routine 10/19/2021 Re sults for this procedure are i n the results section. P.E.T. UREA NITROGEN, PDF Routine 10/19/2021 Re sults for this procedure are i n the results section. P.E.T. UREA NITROGEN, PDF Routine 10/19/2021 Re sults for this procedure are i n the results section. P.E.T. INTERPRETATION Routine 10/19/2021 Result s for this procedure are i n the results section. P.E.T. INTERPRETATION Routine 10/19/2021 Result s for this procedure are i n the results section. P.E.T. INTERPRETATION Routine 10/19/2021 Result s for this procedure are i n the results section. P.E.T. GLUCOSE, PDF Routine 10/19/2021 Results for this procedure are i n the results section. P.E.T. GLUCOSE, PDF Routine 10/19/2021 Results for this procedure are i n the results section. P.E.T. GLUCOSE, PDF Routine 10/19/2021 Results for this procedure are i n the results section. P.E.T. CREATININE, PDF Routine 10/19/2021 Resul ts for this procedure are i n the results section. P.E.T. CREATININE, PDF Routine 10/19/2021 Resul ts for this procedure are i n the results section. P.E.T. CREATININE, PDF Routine 10/19/2021 Resul ts for this procedure are i n the results section. URINE CLEARANCE Routine 10/19/2021 Results for this procedure are i n the results section. PDF CHEMISTRY Routine 10/19/2021 Results for th is procedure are i n the results section. PD ADEQUACY Routine 10/19/2021 Results for thi s procedure are i n the results section. PD ADEQUACY Routine 10/19/2021 Results for thi s procedure are i n the results section. IMMUNO CHEMISTRY Routine 10/19/2021 Results for this procedure are i n the results section. PATIENT INFORMATION Routine 10/19/2021 Results for this procedure are i n the results section. PATIENT INFORMATION Routine 10/19/2021 Results for this procedure are i n the results section. PATIENT INFORMATION Routine 10/19/2021 Results for this procedure are i n the results section. HEMATOLOGY Routine 10/19/2021 Results for thi s procedure are i n the results section. CHEMISTRY Routine 10/19/2021 Results for thi s procedure are i n the results section. documented in this encounter Results (ABNORMAL) URINE CLEARANCE (10/19/2021) Analysis Performed At Patho logist Time Signature Urea Nitrogen, 483 mg/dL [facility] Urine Timed [facility] Urea Nitrogen, 5.1 (L) 12.0 - [facility] Urine 24 Hr 20.0 g/24 [facility] hr Urea Clear, 4.2 (L) 64.0 - [facility] Urine Norm 99.0 [facility] mL/min Urea Clearance, 4.8 (L) 64.0 - [facility] Urine 99.0 [facility] mL/min Urea Clear, 48 L/wk [facility] Urine Norm Wkly [facility] Creatinine, 90.4 mg/dL [facility] Urine Timed [facility] Creatinine, 24H 0.9 0.7 - 1.8 [facility] Ur g/24 hr [facility] Creatinine 15.2 mL/min [facility] Clear, Urine [facility] Creat Clear, 13.5 (L) 94.0 - [facility] Urine Norm 122.0 [facility] mL/min Creat Clear, 153.2 L/wk [facility] Urine Wkly [facility] Specimen (Source) Anatomical Collection Method Collection Time Re ceived Time Location / / Volume Laterality 10/19/2021 10/20/2021 12:2 2 PM INTERNATIONAL ACCOUNTING MANAGER Resulting Agency Comment Specimen source: Urine Sebastian Charles MD LAB URINE ORDERABLES Performing Organization Address City/State/ZIP Code Phon e Number [facility] PD ADEQUACY (10/19/2021) P athologist Signature Kt/V, Residual 1.10 [facility] Creat Clear, 136 L/wk [facility] Urine Nor Wkly [facility] Specimen (Source) Anatomical Collection Method Collection Time Re ceived Time Location / / Volume Laterality 10/19/2021 10/20/2021 12:2 2 PM INTERNATIONAL ACCOUNTING MANAGER Narrative [facility] - 10/20/2021 Unless otherwise specified, test(s) performed at: [facility], [address] [place] [address] ANIMAL HUSBANDMAN: Steve Younger M.D. For any questions, please call customer service at FREQUENCY:MONTHLY Resulting Agency Comment Specimen source: Urine Sebastian Charles MD LAB BODY FLUIDS AND STOOLS O RDERABLES Performing Organization Address City/State/ZIP Code Phon e Number [facility] P.E.T. UREA NITROGEN, PDF (10/19/2021) P athologist Signature Urea Nitrogen, 10 mg/dL [facility] PDF 0 Hr [facility] Comment: A reference range for this assay has not been established for body fluids. If blood results are available f or this analyte, results may be interpreted in comparison to those resul ts. Specimen (Source) Anatomical Collection Method Collection Time Re ceived Time Location / / Volume Laterality 10/19/2021 10/20/2021 12:0 9 PM INTERNATIONAL ACCOUNTING MANAGER Resulting Agency Comment Specimen source: PD Fluid Sebastian Charles MD LAB BLOOD ORDERABLES Performing Organization Address City/State/ZIP Code Phon e Number [facility] P.E.T. CREATININE, PDF (10/19/2021) P athologist Signature Creatinine, PDF 0.0 mg/dL [facility] 0 Hr Cor [facility] Creatinine, PDF 0.5 mg/dL [facility] 0 Hr Uncor [facility] Comment: A reference range for this assay has not been established for body fluids. If blood results are available f or this analyte, results may be interpreted in comparison to those resul ts. Specimen (Source) Anatomical Collection Method Collection Time Re ceived Time Location / / Volume Laterality 10/19/2021 10/20/2021 12:0 9 PM INTERNATIONAL ACCOUNTING MANAGER Resulting Agency Comment Specimen source: PD Fluid Sebastian Charles MD LAB BLOOD ORDERABLES Performing Organization Address City/[facility]/ZIP Code Phon e Number [facility] P.E.T. GLUCOSE, PDF (10/19/2021) athologist Signature Glucose, PDF 0 2,018 mg/dL [facility] Hr [facility] Comment: A reference range for this assay has not been established for body fluids. If blood results are available f or this analyte, results may be interpreted in comparison to those resul ts. Specimen (Source) Anatomical Collection Method Collection Time Re ceived Time Location / / Volume Laterality 10/19/2021 10/20/2021 12:0 9 PM INTERNATIONAL ACCOUNTING MANAGER Resulting Agency Comment Specimen source: PD Fluid Sebastian Charles MD LAB BLOOD ORDERABLES Performing Organization Address City/State/ZIP Code Phon e Number [facility] P.E.T. INTERPRETATION (10/19/2021) P athologist Signature D/P Ratio PET 0 0.00 [facility] Hr [facility] D/D0 Ratio PET 1.00 [facility] 0 Hr [facility] Specimen (Source) Anatomical Collection Method Collection Time Re ceived Time Location / / Volume Laterality 10/19/2021 10/20/2021 12:0 9 PM INTERNATIONAL ACCOUNTING MANAGER Narrative APS S[facility]RA [facility] - 10/20/2021 Unless otherwise specified, test(s) performed at: [facility], [address] [place] [address] ANIMAL HUSBANDMAN: Steve Younger M.D. For any questions, please call customer service at FREQUENCY:MONTHLY Resulting Agency Comment Specimen source: PD Fluid Sebastian Charles MD LAB BLOOD ORDERABLES Performing Organization Address City/State/ZIP Code Phon e Number [facility] P.E.T. UREA NITROGEN, PDF (10/19/2021) P athologist Signature Urea Nitrogen, 78 mg/dL [facility] PDF 4 Hr [facility] Comment: A reference range for this assay has not been established for body fluids. If blood results are available f or this analyte, results may be interpreted in comparison to those resul ts. Specimen (Source) Anatomical Collection Method Collection Time Re ceived Time Location / / Volume Laterality 10/19/2021 10/20/2021 12:1 5 PM INTERNATIONAL ACCOUNTING MANAGER Resulting Agency Comment Specimen source: PD Fluid Sebastian Charles MD LAB BLOOD ORDERABLES Performing Organization Address City/[facility]/ZIP Code Phon e Number [facility] P.E.T. CREATININE, PDF (10/19/2021) P athologist Signature Creatinine, PDF 3.1 mg/dL [facility] 4 Hr Cor [facility] Creatinine, PDF 3.2 mg/dL [facility] 4 Hr Uncor [facility] Comment: A reference range for this assay has not been established for body fluids. If blood results are available f or this analyte, results may be interpreted in comparison to those resul ts. Specimen (Source) Anatomical Collection Method Collection Time Re ceived Time Location / / Volume Laterality 10/19/2021 10/20/2021 12:1 5 PM INTERNATIONAL ACCOUNTING MANAGER Resulting Agency Comment Specimen source: PD Fluid Sebastian Charles MD LAB BLOOD ORDERABLES Performing Organization Address City/State/ZIP Code Phon e Number [facility] P.E.T. GLUCOSE, PDF (10/19/2021) P athologist Signature Glucose, PDF 4 666 mg/dL [facility] Hr [facility] Comment: A reference range for this assay has not been established for body fluids. If blood results are available f or this analyte, results may be interpreted in comparison to those resul ts. Specimen (Source) Anatomical Collection Method Collection Time Re ceived Time Location / / Volume Laterality 10/19/2021 10/20/2021 12:1 5 PM INTERNATIONAL ACCOUNTING MANAGER Resulting Agency Comment Specimen source: PD Fluid Sebastian Charles MD LAB BLOOD ORDERABLES Performing Organization Address City/State/ZIP Code Phon e Number [facility] P.E.T. INTERPRETATION (10/19/2021) [facility] gist Method Time Signature Solute Average [facility] Transport Class High [facility] Creatinine Average [facility] Transport High [facility] Comment: Creatinine Transport interpretation base d on 4 Hr D/P Ratio only. Variations both in D/P ratios and interp retations may be due to excessive residual dialysate and/or sarah ation from test protocol. ??All creatinines have been corrected for gluc ose interference, correction factor = 0.0002. Standard PET - Peritoneal Transport Clas sification* Solute Transport ?? 2 hr D/P ?4 hr D /P ?2 hr D/D0 ?? 4 hr D/D0 ?? Ultra Filtration Creatinine ??Creatinine ??Glucose ? Glucose ? Volume ? High ? 0.63-0.87 ?? 0 .82-1.03 ?? 0.43-0.24 ?? 0.25-0.12 ?? [phone] Average High ? 0.49-0.62 ?? 0.66- 0.81 ?? 0.54-0.44 ?? 0.37-0.26 ?? 7748-4150 Average ?0.48 ?0.65 ?0.55 ?0.38 ?2368 Average Low ?0.34-0.47 ?? 0.50 -0.64 ?? 0.66-0.56 ?? 0.49-0.39 ?? 2333-2924 Low ?0.23-0.33 ?? 0.34-0.49 ?? 0.78-0.67 ?? 0.61-0.50 ?? [phone] *Concetta GREY, Bridgette KD, Farooq R, Jovani adam BF, Aldo LP, Jose HL, et al. Peritoneal equilibration test. Perit Dial Bull 1987; 7:138-147. D/P Ratio PET 4 Hr 0.71 [facility] D/D0 Ratio PET 4 Hr 0.33 [facility]PS [facility]R A [facility] Glucose Transport Average High APS SPECT RA [facility] Comment: The result was added after test was rele ased. Glucose Transport interpretation based o n 4 Hr D/D0 Ratio for Standard PET, and 4 Hr PDF Glucose for Fast PET. Specimen (Source) Anatomical Collection Method Collection Time Re ceived Time Location / / Volume Laterality 10/19/2021 10/20/2021 12:1 5 PM INTERNATIONAL ACCOUNTING MANAGER Narrative [facility] - 10/20/2021 Unless otherwise specified, test(s) performed at: [facility], [address] [place] [address] ANIMAL HUSBANDMAN: Steve Younger M.D. For any questions, please call customer service at FREQUENCY:MONTHLY Resulting Agency Comment Specimen source: PD Fluid Sebastian Charles MD LAB BLOOD ORDERABLES Performing Organization Address City/State/ZIP Code Phon e Number [facility] PDF CHEMISTRY (10/19/2021) P athologist Signature Urea Nitrogen, 5,287.5 mg/24 hr [facility] PDF 24 Hr [facility] Urea Nitrogen, 75 mg/dL [facility] PDF Timed [facility] Comment: A reference range for this assay has not been established for body fluids. If blood results are available f or this analyte, results may be interpreted in comparison to those resul ts. Urea Clearance, PD Fluid 5.0 mL/min APS S PECTRA [facility] Urea Clearance, PDF Norm 4.4 mL/min APS S PECTRA [facility] Urea Clear, PDF Norm Wkly 50 L/wk [facility] Creatinine, PDF Timed Uncor 3.0 mg/dL AP S SPECTRA [facility] Comment: A reference range for this assay has not been established for body fluids. If blood results are available f or this analyte, results may be interpreted in comparison to those resul ts. Creatinine, PDF Timed Cor 2.8 mg/dL [facility] Comment: Creatinine values have been corrected fo r glucose interference. [facility] glucose correction factor f or creatinine is 0.0002. Creatinine, PDF 24 Hr 197.4 mg/24 hr APS SPEC TRA [facility] Creatinine Clear, PDF 3.2 mL/min APS SPEC TRA [facility] Creatinine Clear, PDF Norm 2.8 mL/min [facility] Creat Clear, PDF Norm Wkly 32 L/wk [facility] Glucose, PDF Timed 797 mg/dL [facility] Comment: A reference range for this assay has not been established for body fluids. If blood results are available f or this analyte, results may be interpreted in comparison to those resul ts. Urea Clear, Tot Norm Wkly 98 L/wk [facility] Creat Clear, Tot Wkly 185 L/wk APS SPEC TRA [facility] Specimen (Source) Anatomical Collection Method Collection Time Re ceived Time Location / / Volume Laterality 10/19/2021 10/20/2021 11:5 9 AM INTERNATIONAL ACCOUNTING MANAGER Resulting Agency Comment Specimen source: PD Fluid Sebastian Charles MD LAB BODY FLUIDS AND STOOLS O RDERABLES Performing Organization Address City/State/ZIP Code Phon e Number [facility] PD ADEQUACY (10/19/2021) P athologist Signature Kt/V, 1.15 [facility] Peritoneal [facility] Creat Clear, 28 L/wk [facility] PDF Norm Wkly [facility] Kt/V, Total 2.25 [facility] Comment: KDOQI Guidelines recommend weekly Kt/V o f >=1.7 for adults. Creat Clear, Tot Norm Wkly 164 L/wk [facility] PNA, Normalized 1.24 g/kg/day [facility] [place] [facility] PNA 93 g/day [facility]PS [facility] Specimen (Source) Anatomical Collection Method Collection Time Re ceived Time Location / / Volume Laterality 10/19/2021 10/20/2021 11:5 9 AM INTERNATIONAL ACCOUNTING MANAGER Narrative APS S[facility]RA [facility] - 10/20/2021 Unless otherwise specified, test(s) performed at: [facility], [address] [place] [address] ANIMAL HUSBANDMAN: Steve Younger M.D. For any questions, please call customer service at FREQUENCY:MONTHLY Resulting Agency Comment Specimen source: PD Fluid Sebastian Charles MD LAB BODY FLUIDS AND STOOLS O RDERABLES Performing Organization Address City/[facility]/ZIP Code Phon e Number [facility] S[facility] P.E.T. UREA NITROGEN, PDF (10/19/2021) P athologist Signature Urea Nitrogen, 62 mg/dL [facility] PDF 2 Hr [facility] Comment: A reference range for this assay has not been established for body fluids. If blood results are available f or this analyte, results may be interpreted in comparison to those resul ts. Specimen (Source) Anatomical Collection Method Collection Time Re ceived Time Location / / Volume Laterality 10/19/2021 10/20/2021 12:1 9 PM INTERNATIONAL ACCOUNTING MANAGER Resulting Agency Comment Specimen source: PD Fluid Sebastian Charles MD LAB BLOOD ORDERABLES Performing Organization Address [facility] Code Phon e Number [facility] P.E.T. CREATININE, PDF (10/19/2021) P athologist Signature Creatinine, PDF 2.2 mg/dL [facility] 2 Hr Cor [facility] Creatinine, PDF 2.4 mg/dL [facility] 2 Hr Uncor [facility] Comment: A reference range for this assay has not been established for body fluids. If blood results are available f or this analyte, results may be interpreted in comparison to those resul ts. Specimen (Source) Anatomical Collection Method Collection Time Re ceived Time Location / / Volume Laterality 10/19/2021 10/20/2021 12:1 9 PM INTERNATIONAL ACCOUNTING MANAGER Resulting Agency Comment Specimen source: PD Fluid Sebastian Charles MD LAB BLOOD ORDERABLES Performing Organization Address City/[facility] Code Phon e Number [facility]PS [facility] P.E.T. GLUCOSE, PDF (10/19/2021) P athologist Signature Glucose, PDF 2 1,014 mg/dL [facility] Hr [facility] Comment: A reference range for this assay has not been established for body fluids. If blood results are available f or this analyte, results may be interpreted in comparison to those resul ts. Specimen (Source) Anatomical Collection Method Collection Time Re ceived Time Location / / Volume Laterality 10/19/2021 10/20/2021 12:1 9 PM INTERNATIONAL ACCOUNTING MANAGER Resulting Agency Comment Specimen source: PD Fluid Sebastian Charles MD LAB BLOOD ORDERABLES Performing Organization Address City/State/ZIP Code Phon e Number [facility] P.E.T. INTERPRETATION (10/19/2021) P athologist Signature D/P Ratio PET 2 0.51 [facility] Hr [facility] D/D0 Ratio PET 0.50 [facility] 2 Hr [facility] Specimen (Source) Anatomical Collection Method Collection Time Re ceived Time Location / / Volume Laterality 10/19/2021 10/20/2021 12:1 9 PM INTERNATIONAL ACCOUNTING MANAGER Narrative APS SPECTRA [facility] - 10/20/2021 Unless otherwise specified, test(s) performed at: [facility], [address] [place] [address] ANIMAL HUSBANDMAN: Steve Younger M.D. For any questions, please call customer service at FREQUENCY:MONTHLY Resulting Agency Comment Specimen source: PD Fluid Sebastian Charles MD LAB BLOOD ORDERABLES Performing Organization Address City/State/ZIP Code Phon e Number APS SPECTRA [facility] (ABNORMAL) [facility]rae Chemistry (10/19/2021) Patholo gist Method Time Signature BUN 74 (H) 6 - 19 [facility] mg/dL [facility] Creatinine 4.34 (H) 0.60 - APS [facility] 1.30 mg/dL [facility] BUN/Creatinine 17.1 10.0 - [facility]PS [facility] Ratio 20.0 [facility] Sodium 141 136 - 145 A[facility] mEq/L [facility] Potassium 3.8 3.5 - 5.1 [facility] mEq/L [facility] Chloride 100 96 - 108 [facility] mEq/L [facility] Bicarbonate 28 22 - 29 [facility] (CO2) mEq/L [facility] Calcium 8.4 8.4 - 10.2 [facility] mg/dL [facility] Corrected 8.8 8.4 - 10.2 [facility] Calcium mg/dL [facility] Comment: Corrected Calcium is not equivalent to m easured Ionized Calcium. Phosphorus 4.2 2.6 - 4.5 mg/dL APS SPECTRA K [facility] Calcium Phosphorus Product 35 0 - 54 [facility]PS [facility] Calcium Phosporus Product, Cor 37 0 - 54 APS [facility] Albumin 3.5 3.5 - 5.2 g/dL [facility] [place] Glucose 127 (H) 70 - 100 mg/dL [facility] [place] Iron 63 45 - 160 mcg/dL [facility] [place] [facility] UIBC 295 155 - 355 mcg/dL APS SPECTRA K [facility] TIBC 358 185 - 515 mcg/dL APS S[facility]RA K [facility] Iron Saturation (TSat) 18 (L) 20 - 55 % APS SPE CTRA [facility] Specimen (Source) Anatomical Collection Method Collection Time Re ceived Time Location / / Volume Laterality 10/19/2021 10/20/2021 9:08 AM INTERNATIONAL ACCOUNTING MANAGER Narrative APS SPECTRA [facility] - 10/20/2021 Unless otherwise specified, test(s) performed at: [facility], [address] [place], [place] [id number] ANIMAL HUSBANDMAN: Steve Younger M.D. For any questions, please call customer service at FREQUENCY:MONTHLY Resulting Agency Comment Specimen source: Serum Sebastian Charles MD LAB BLOOD ORDERABLES Performing Organization Address City/[facility] Phon e Number APS SPECTRA [facility] PATIENT INFORMATION (10/19/2021) athologist [facility] Urea Volume 43.6 L APS [facility]RA Distribution [facility] (Zoraida) Specimen (Source) Anatomical Collection Method Collection Time Re ceived Time Location / / Volume Laterality 10/19/2021 10/20/2021 11:5 9 AM INTERNATIONAL ACCOUNTING MANAGER Narrative APS SPECTRA [facility] - 10/20/2021 Unless otherwise specified, test(s) performed at: [facility], [address] [place] [address] ANIMAL HUSBANDMAN: Steve Younger M.D. For any questions, please call customer service at FREQUENCY:MONTHLY Resulting Agency Comment Specimen source: PD Fluid Sebastian Charles MD LAB BLOOD ORDERABLES Performing Organization Address City/[facility]/ZIP [facility] Phon e Number APS SPECTRA [facility] IMMUNO CHEMISTRY (10/19/2021) P athologist Signature Hep B Surface Negative Negative [facility]PS [facility] Ag [facility] Specimen (Source) Anatomical Collection Method Collection Time Re ceived Time Location / / Volume Laterality 10/19/2021 10/20/2021 9:08 AM INTERNATIONAL ACCOUNTING MANAGER Resulting Agency Comment Specimen source: Serum Sebastian Charles MD LAB BLOOD ORDERABLES Performing Organization Address City/[facility]/ZIP Code Phon e Number APS SPECTRA [facility] PATIENT INFORMATION (10/19/2021) P athologist Signature Patient BSA 1.94 sq. M. [facility]PS S[facility]RA [facility] Comment: Normalized values are calculated using t he patient's actual BSA and normalized to the average BSA of 1.73m2. Specimen (Source) Anatomical Collection Method Collection Time Re ceived Time Location / / Volume Laterality 10/19/2021 10/20/2021 9:08 AM INTERNATIONAL ACCOUNTING MANAGER Narrative APS SPECTRA [facility] - 10/20/2021 Unless otherwise specified, test(s) performed at: [facility], [address] [place] [address] ANIMAL HUSBANDMAN: Steve Younger M.D. For any questions, please call customer service at FREQUENCY:MONTHLY Resulting Agency Comment Specimen source: PD Fluid Sebastian Charles MD LAB BLOOD ORDERABLES Performing Organization Address City/[facility] Phon e Number APS SPECTRA [facility] (ABNORMAL) HEMATOLOGY (10/19/2021) [facility] gist Method Time Signature WBC 7.38 4.80 - APS SPECTRA 10.80 [facility] 1000/mcL RBC 3.81 (L) 4.70 - APS S[facility]RA 6.10 [facility] mill/mcL Hemoglobin 12.2 (L) 14.0 - APS [facility]RA 18.0 g/dL [facility] Hemoglobin x 3 36.6 (L) 42.0 - APS [facility]RA 54.0 % [facility] Hematocrit 38.1 (L) 42.0 - APS SPECTRA 52.0 % [facility] MCV 100 80 - 100 [facility] fl [facility] MCH 32.1 (H) 27.0 - APS [facility]RA 31.0 pg [facility] MCHC 32.2 30.0 - APS [facility]RA 36.0 g/dL [facility] RDW 14.1 11.5 - [facility] 14.5 % [facility] Neutrophils 70.0 40.0 - APS [facility] 75.0 % [facility] Lymphocytes 10.6 (L) 19.0 - [facility] Relative 48.0 % [facility] Monocytes 5.7 3.0 - 10.0 A[facility] % [facility] Eosinophils 12.3 (H) 0.0 - 7.0 A[facility] Relative % [facility] Basophils 0.4 0.0 - 1.5 [facility] Relative % [facility] JUAN ANTONIO 1.1 0.0 - 4.0 APS [facility] % [facility] Specimen (Source) Anatomical Collection Method Collection Time Re ceived Time Location / / Volume Laterality 10/19/2021 10/20/2021 8:46 AM INTERNATIONAL ACCOUNTING MANAGER Narrative APS SPECTRA [facility] - 10/20/2021 Unless otherwise specified, test(s) performed at: [facility], [address] [place], [place] [id number] ANIMAL HUSBANDMAN: Steve Younger M.D. For any questions, please call customer service at FREQUENCY:MONTHLY Resulting Agency Comment Specimen source: Blood Sebastian Charles MD LAB BLOOD ORDERABLES Performing Organization Address City/[facility] Phon e Number APS SPECTRA [facility] PATIENT INFORMATION (10/19/2021) P athologist Signature Patient Weight 81.2 APS S[facility]RA [facility] Patient Height 172.0 APS S[facility]RA [facility] Amputee Status NO [facility]PS [facility] Amputee Parts NONE [facility] Drain volume, 7,050 [facility] PDF [facility] Collection 24.0 [facility] Time, PDF [facility] Urine Volume 1,050 APS S[facility]RA [facility] Collection 24.0 APS [facility]RA Interval, Ur [facility] Specimen (Source) Anatomical Location Collection Method / Collectio n Time Received Time / Laterality Volume 10/19/2021 10/19/2021 Narrative APS SPECTRA [facility] - 10/20/2021 Unless otherwise specified, test(s) performed at: [facility], [address] [place] [address] ANIMAL HUSBANDMAN: Steve Younger M.D. For any questions, please call customer service at FREQUENCY:MONTHLY Resulting Agency Comment Specimen source: PD Fluid Sebastian Charles MD LAB BLOOD ORDERABLES Performing Organization Address City/[facility] Phon e Number APS SPECTRA [facility] documented in this encounter Visit Diagnoses Not on filedocumented in this encounter Care Teams Canal Superintendent Relationship Specialty Start Date End Date Harish Silver MD PCP - General 05/17/19 [address] [place] [address] documented as of this encounter
--- OUTSIDE RECORDS SUMMARY | 2022-04-13 21:48 | XMS_ITS | Continuity of Care Document ---
:[address] [facility] Address [address] [address] [place] [address] Phone Care Team Providers Name Role Phone [...] No Sanjay MOISE [facility] Information Surya. [facility], [address] [place] [address], [address] [place], [facility] [address], , [place], [place] [id number], , [place], [id number], tel:[phone] tel:[phone] FACUNDO LOREDO AchalasiaHema Asad MOISE Referr ing Digestive Endoscopy temesisAchala [facility]. Provid er: [facility] VERA, Center satya of cardia 1 [address] [place], [address], Street [place], [address] [place] [address], [address] [facility], [place], [place] [address], [id number], , [place], [place], [id number], [place], [address]. tel:[phone] [place]. tel:[phone] tel:[phone] FACUNDO [place] Achalasia of [place] Referr ing Digestive FACUNDO cardiaGastro- MD Malin. 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 tel:[phone] malformations [place]. tel:[phone] of upper tel:[phone] alimentary [id number] tractAchalasi a of cardia OKGI Swain No Quoc- [facility] Dig[facility]ive OKGI Information MD Malin. [facility], Endoscopy 1 [address] [facility] [address], Street [place], [facility] [address], s, [place], [place] [id number], , [place], [place] [id number], tel:[phone]. [phone] tel:[phone] [facility] GI Achalasia Gerri MOISE Referring Digestive Clinic Symptoms - Marcelo. Provider: [facility], or 1 [address] [facility] Joe MOISE, [address], ([address] [place], [address] [place] [address] complaint) [address], [address], [place], [place] [address], [id number], , [place], [place], [place] [id number], [place], [address]. tel: [place]. tel:[phone] tel:[phone] Init Hosp-da [facility] [place] No Rima MOISE Referring E&m Mod Digestive [facility] Information Viki. 3001 P rovider: [facility], Hosp 1 [place] Vikiamanda Post r [facility] MD Lyric SWEET, [address]001 [address], [address], [facility] s, [place], , [place], [address], [id number], [id number], [place], [place]. [place], tel:+ tel:[phone]. [phone] [phone] [facility] [place] Achalasia Rima MOISE Digestive [facility] Viki. 3001 Health [place], Hosp 1 [facility], [address], [address], [place], [place], , [place], [id number], [id number], [place]. tel: tel:[phone] Offic/outpt [facility] [place] GI Achalasia Apr- Lisa PAC Refe nicolaing E&m [facility] Symptoms 8-201 Gud[place]. 3001 Provid er: [facility], or [address] [place] [address], Andreea MOISE [address], (chief [address], L, 1400 [place] complaint) [place] Malachi son s, [place], , [place], Rd, [id number], [id number], [place], [address]. tel: tel: tel: [phone] Family History Family Member Type Diagnosis Age [...] Other Registry tetanus toxoid, reduced administered Note: [place] bi-directional diphtheria toxoid, and acellular interface [...] Registry Payers Payer name Insurance type Covered green party ID Authorization(s ) [employer] Medicare Advantage [id number] [facility] [id number] Social History Type Description Quantity Date Captured Comments Sex Male Smoking Status No Information Chief Complaint And Reason For Visit No Information Reason For Referral Reason For Referral No Information Plan Of Treatment Date Type Action Status Referral Ordered: ordered follow-up visit with Esophagus soledad solo Referral Ordered: ordered referred to Clayton Daiz MD Surgery achalasia, ?esophagectomy ?J tube Appointment [...] worsened. He has undergone workup at the [facility] and reports undergoing a n EGD in February and then having a repeat EGD with pneumatic balloon dilation about 3 wee ks ago at their facility. Since the balloon di lation, he was admitted at [facility] and due to complaints of dysphagia at [...]
--- OUTSIDE RECORDS SUMMARY | 2022-04-13 21:48 | XMS_ITS | Encounter Summary ---
:1940 Author Organization [facility] Address [address] [place] [address] Care Team Providers Name Role Phone Harish Silver MD Primary Care Provider Encounter Details Date Type Department Care Team Description 09/22/2021 Treatment [facility] Sebastian Jimenez MD [address] ANA MARIA [address] [place], [place] [phone] (Wo rk) Social History Tobacco Use Types [...] Name: David Castro : 1940 Chart #: [id number] Sex: M This patient was personally seen for a complete visit as part of routine monthly dialysis care. A review of the dialysis treatment, blood pressure, estimated dry weight, and recent lab values was made.These were discussed with the patient and staff as necessary. FATS AND OILS LOADER: Sebastian Charles MD LOCATION: [phone] SCHEDULE: No Routine Schedule Subjective 09/22/21: Georges [...] on filedocumented in this encounter Care Teams Bundle Helper Relationship Specialty Start Date End Date Harish Silver MD PCP - General 05/17/19 [address] [place] [address] documented as of this encounter
--- OUTSIDE RECORDS SUMMARY | 2022-04-13 21:48 | XMS_ITS | Encounter Summary ---
:1940 Author Organization [facility] Address [address] [place] [address] Care Team Providers Name Role Phone Harish Silver MD Primary Care Provider Encounter Details Date Type Department Care Team Description 11/10/2021 Orders Only [facility] f Sebastian Mohan MD [address] [place] [address] [place], [place] [phone] (Wo rk) Social History Tobacco Use [...] 11/11/2021 Unless otherwise specified, test(s) performed at: [facility], [address] [place] [address] [employer]LLF[employer] FARM[employer] SUPERVISOR: Steve Younger M.D. For any questions, please [...] have been corrected fo r glucose interference. [facility] glucose correction factor f or creatinine is [...] 11/11/2021 Unless otherwise specified, test(s) performed at: [facility], [address] [place], [place] [id number] [employer]ARM[employer] SUPERVISOR: Steve Younger M.D. For any questions, please [...] 11/11/2021 Unless otherwise specified, test(s) performed at: [facility], [address] [place] [address] [employer] SUPERVISOR: Steve Younger M.D. For any questions, please call customer service at FREQUENCY:MONTHLY Resulting Agency Comment Specimen source: PD Fluid Sebastian Charles MD LAB BLOOD ORDERABLES Performing Organization Address City/[facility]/ZIP Code Phon e Number APS SPECTRA KSMMN [...] 11/11/2021 Unless otherwise specified, test(s) performed at: [facility], [address] [place] [address] [employer]ARM[employer] SUPERVISOR: Steve Younger M.D. For any questions, please call customer service at FREQUENCY:MONTHLY Resulting Agency Comment Specimen source: Serum Sebastian Charles MD LAB BLOOD ORDERABLES Performing Organization Address City/[facility] Phon e Number APS SPECTRA KSMMN PATIENT [...] 11/11/2021 Unless otherwise specified, test(s) performed at: [facility], [address] [place] [address] [employer] FARM[employer] SUPERVISOR: Steve Younger M.D. For any questions, please call customer service at FREQUENCY:MONTHLY Resulting Agency Comment Specimen source: PD Fluid Sebastian Charles MD LAB BLOOD ORDERABLES Performing Organization Address City/[facility] Phon e Number APS SPECTRA KSMMN PATIENT [...] 11/11/2021 Unless otherwise specified, test(s) performed at: [facility], [address] [place] [address] [employer] SUPERVISOR: Steve Younger M.D. For any questions, please call customer service at FREQUENCY:MONTHLY Resulting Agency Comment Specimen source: PD Fluid Sebastian Charles MD LAB BLOOD ORDERABLES Performing Organization Address City/State/ZIP Code Phon e Number APS SPECTRA KSMMN documented in this encounter Visit Diagnoses Not on filedocumented in this encounter Care Teams Well Drill Operator Rotary Drill Relationship Specialty Start Date End Date Harish Silver MD PCP - General 05/17/[address] [place] [address] documented as of this encounter
--- OUTSIDE RECORDS SUMMARY | 2022-04-13 21:48 | XMS_ITS | Encounter Summary ---
:1940 Author Organization [facility] Address [address] [place] [address] Care Team Providers Name Role Phone Harish Silver MD Primary Care Provider Encounter Details Date Type Department Care Team Description 05/25/2021 Documentation Only [facility] Harish [place] MD [place] [address] [place] [address] 220 [place] [address] Social History Tobacco Use Types Packs/Day Years Used Date Smoking Tobacco: Never Alcohol Use Standard Drinks/Week Comments No 0 (1 standard drink = 0.6 oz pure alcoho l) Sex Assigned at Date Recorded Not on file documented as of this encounter Plan of Treatment Not on filedocumented as of this encounter Visit Diagnoses Not on filedocumented in this encounter Care Teams Vice President Education Relationship Specialty Start Date End Date Harish Silver MD PCP - General 05/17/19 [address] [place] [address] documented as of this encounter
--- OUTSIDE RECORDS SUMMARY | 2022-04-13 21:48 | XMS_ITS | Encounter Summary ---
:1940 Author Organization [facility] Address [address] [place] [address] Care Team Providers Name Role Phone Harish Silver MD Primary Care Provider Encounter Details Date Type Department Care Team Description 09/13/2021 Treatment [facility] Sebastian Jimenez MD [address] [place], [place] [phone] (Wo rk) Social History Tobacco Use Types Packs/Day Years Used Date Smoking Tobacco: Never Alcohol Use Standard Drinks/Week Comments No 0 (1 standard drink = 0.6 oz pure alcoho l) Sex Assigned at Date Recorded Not on file documented as of this encounter Miscellaneous Notes Dialysis Note - Sebastian Charles MD - 09/13/2021 10:41 PM CST Date: Sep 13, 2021 Patient Name: David Castro : 1940 Chart #: [id number] Sex: M Patient Type: ESRD Modality: Peritoneal Dialysis 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 Helper: Sebastian Charles MD Location: [phone] Schedule: No Routine Schedule Initial Access Date Regular Chronic Dialysis Began: 09/13/2021Initial Modality: Peritoneal Dialysis Initial Access used on first patient dialysis: PD Catheter Current Access Access used for current outpatient dialysis: PD Catheter Most recent History and Physical: 08/25/2021 Sebastian Charles MD [ Signed And locked electronically On 09/13/2021 at 09:41:12 PM ] Transcribed: Sebastian Charles MD ( 09/13/2021 ) documented in this encounter Plan of Treatment Not on filedocumented as of this encounter Visit Diagnoses Not on filedocumented in this encounter Care Teams Laborer Tin Can Relationship Specialty Start Date End Date Harish Silver MD PCP - General 05/17/19 [address] [place] [address] documented as of this encounter
[2022-04-13] MEDS: 0.9 % SODIUM CHLORIDE 1000 ml 1,000 ML 6000 ML IV (21:49)
[2022-04-13] MEDS: ONDANSETRON 2 MG/ML inj 4 MG IVP (21:49)
[2022-04-13 21:50] LABS: Lactate Sepsis w/Reflex* 2.2 mmol/L (0.5-1.9)
--- NOTE | 2022-04-13 22:00 | ED.NURSE ---
Yves updated on POC trop elevation
[2022-04-13 22:02] LABS: INR 2.01 (0.91-1.10); Prothrombin Time 23.1 Seconds
[2022-04-13 22:03] LABS: Partial Thromboplastin Time* 38 Seconds (23-33)
[2022-04-13 22:32] LABS: Chloride* 93 mmol/L (96-114)
[2022-04-13 22:33] LABS: Albumin* 3.4 g/dL (3.3-5.0); Potassium* 3.6 mmol/L (3.6-5.1); Sodium* 137 mmol/L (135-149)
[2022-04-13 22:35] LABS: Creatinine* 3.9 mg/dL (0.5-1.5); Est. Creatinine Clearance* 14.62; Estimated Glomerular Filt Rate 15 ml/min
[2022-04-13 22:36] LABS: Alanine Aminotransferase* 20 U/L (4-50); Alkaline Phosphatase* 302 U/L (40-150); Aspartate Amino Transferase* 38 U/L (12-35); Bilirubin Total* 0.6 mg/dL (0.1-1.5); Blood Urea Nitrogen* 91 mg/dL (7-30); Calcium* 8.6 mg/dL (8.4-10.6); Carbon Dioxide* 35 mmol/L (20-32); Glucose* 183 mg/dL (60-115); Lipase* 99 U/L (23-300); Total Protein* 7.1 g/dL (6.0-8.3)
[2022-04-13 22:37] LABS: Magnesium* 2.4 mg/dL (1.5-2.6)
[2022-04-13 22:45] LABS: NT Pro B Type NatriureticPept* 4460 PG/mL (0-450)
[2022-04-13 22:49] LABS: PCR FLU A Negative PCR FLU A (Negative); PCR FLU B Negative PCR FLU B (Negative)
[2022-04-13 22:50] LABS: Troponin I* 0.07 ng/mL (0.01-0.04)
[2022-04-13 22:51] LABS: SARS PCR* Negative SARS-CoV-2 (Negative)
[2022-04-13] MEDS: METOCLOPRAMIDE HCL 10 MG in 0.9 % SODIUM CHLORIDE 100 ml 100 ML 306 MG IVPB (23:20)
[2022-04-13 23:55] LABS: Lactate Sepsis 2 Hour 1.5 mmol/L (0.5-1.9)
[2022-04-14] VITALS (15 sets, daily range): BP systolic 91–127; BP diastolic 52–76; PULSE 80–104; RESP 12–20; O2SAT 96–99
[2022-04-14 00:32] LABS: Troponin I* 0.08 ng/mL (0.01-0.04)
--- NOTE | 2022-04-14 00:32 | ED.NURSE ---
Critical lab received: Troponin 0.08
[2022-04-14] MEDS: LACTATED RINGERS 1000 ML 1,000 ML 500 ML IV (01:22)
--- NOTE | 2022-04-14 07:11 | ED.NURSE ---
pt slept on/ off throughout night. pt able to get self up out of bed this AM to drink water/use urinal. pt denies any pain.
--- NOTE | 2022-04-14 09:11 | ED.NURSE ---
was not able to keep juice and water down. did vomit this up. black type vomitus, his typical was expelled. at bs. dr coates was in to see.
[2022-04-14] MEDS: 5 % DEXTROSE/0.9% SOD CHLORIDE 1,000 ML 75 ML IV (10:42)
--- NOTE | 2022-04-14 12:49 | ED.NURSE ---
Patient had coffee ground emesis of 300mls.
--- NOTE | 2022-04-14 13:42 | ED.NURSE ---
ems was called at ~1245 for transfer. has had blackish colored emesis. watery total ~400 ml since 1000. was taking fluids po -juice and water per ok of dr coates. was informed to hold off due to the vomiting. is getting iv D5ns at 75/hr. continues to feel weak. rosie at bs.
== END 2022-04-14 14:55 | disposition other institution (70) ==
PROVIDERS: Emergency Provider Family Medicine; PCP Family Medicine
DX: K22.0 Achalasia of cardia (principal); R11.10 Vomiting, unspecified
CPT/HCPCS: 36415; 74176; 80053; 82803; 83690; 83735; 83880; 83986; 84484; 85610; 85730; 87040; 87502; 87635; 93005; 96365; 96375; 99284; 99285; J2405; J2765; J7030; J7042; J7120

== ENCOUNTER 2022-04-14 14:51 | Outpatient (CLI) | payer OTHER, SELFPAY ==
--- OUTSIDE RECORDS SUMMARY | 2022-04-17 15:50 | XMS_ITS | Encounter Summary ---
:1940 Author Organization [facility] Address [address] [place] [address] Support Name Relationship Address Phone SHAYY CARMONA Unavailable [address] [place] [address] SHAYY CARMONA Unavailable [address] [facility] [place] [address] Insurance Providers: All historical and current Section [...] MEDICARE MEDICARE PART Nov 19, PART A [id number] [address] P ATIENT (WNR) (M) A 2006 97A [phone] [place] MEDICARE MEDICARE PART Nov 19, PART B [id number] 800 MATHEW,T P ATIENT (WNR) (M) B 2006 97A [phone] [place] Selected Encounter This section includes the information on record at [place] for the Encounter. Date/Time Encounter Type Encounter Reason Provider Source Description Apr 14, 2022 09:01 Outpatient ADMIN PAT ACTIVLIDIA NEGERTE PM Encounter (MASNONCT) IHE Encounter Template Text not used by [place] Plan of Treatment: Future Appointments (+ 6 months) and Future Tests (+/- 45 days) The Plan of Treatment section includes future care activities for the patient from all [facility] treatmentfacilities. This section includes future appointments and future orders which are active, pending orscheduled.Future Appointments This section includes appointments that were scheduled to occur 6 months from the date of the Encounter, up to a maximum of 20 appointments. The data comes from all [place] treatment facilities. Appointment Date/Time Appointment Type Appointment Facili ty Name Apr 16, 2022 02:34 PM AMBULATORY - NONE [facility] May 30, 2022 02:00 PM AMBULATORY - NONE [facility] Encounter Notes: All associated encounter notes This section contains the clinical notes associated to the Encounter. Date/Time Encounter Note(s) Provider Source Apr 13, 2022 09:01 PM NONVA NOTE: HEENA CRISOSTOMO MORENITA Guevara [facility] LOCAL TITLE: [facility] SELF PRESENTIN G CARE COORD PLAN STANDARD TITLE: NONVA NOTE DATE OF NOTE: APR 13, 2022@21:01 ENTRY DATE: APR 14, 2022@21:02:06 AUTHOR: HEENA CRISOSTOMO EXP COSIGNER: URGENCY: STATUS: COMPLETED Emergency Notification Intake Date Presenting to the Facility: Mar Method of Contact: Notified from I-lightinglist Notification ID: [id number] [facility] Referral #: [facility] Name: Hospital: [place], [place] Address: City: [place] State: [place] Zip Code: Phone : [facility] Facility Point of Contact: Name: Tangela Lara Chief complaint: ACHALASIA Primary Diagnosis: Disposition Discharged Date of discharge: Mar Discharge to home 04/14/2022 8:56:14 PM CDT Brie Romero ADDED ADDRESS, VET INFO PER [facility]. , [address], NETWORK DETERMINATION, PRUDENT LAYPERSON, VA AVAILABILITY. POM REVIEW /es/ HEENA REYES, CLOTH BURLER Signed: 04/14/2022 21:03 Receipt Acknowledged By: * AWAITING SIGNATURE * LIDIA DELGADO
--- OUTSIDE RECORDS SUMMARY | 2022-04-17 15:50 | XMS_ITS | Encounter Summary ---
:1940 Author Organization [facility] Address [address] [place] [address] Support Name Relationship Address Phone SHAYY CARMONA Unavailable [address] [place] [address] SHAYY CARMONA Unavailable [address] [place] [address] Insurance Providers: All historical and current Section [...] MEDICARE MEDICARE PART Nov 19, PART A [id number] [address] P ATIENT (WNR) (M) A 2006 97A [phone] [place] MEDICARE MEDICARE PART Nov 19, PART B [id number] 800 MATHEW,T P ATIENT (WNR) (M) B 2006 97A [phone] [place] Selected Encounter This section includes the information on record at [place] for the Encounter. Date/Time Encounter Type Encounter Reason Provider Source Description Apr 16, 2022 02:34 Outpatient ADMIN PAT ACTIVTIES LIDIA DELGADO PM Encounter (MASNONCT) IHE Encounter Template Text not used by [place] Plan of Treatment: Future Appointments (+ 6 months) and Future Tests (+/- 45 days) The Plan of Treatment section includes future care activities for the patient from all [place] treatmentfacilities. This section includes future appointments and future orders which are active, pending orscheduled.Future Appointments This section includes appointments that were scheduled to occur 6 months from the date of the Encounter, up to a maximum of 20 appointments. The data comes from all [place] treatment facilities. Appointment Date/Time Appointment Type Appointment Facili ty Name May 30, 2022 02:00 PM AMBULATORY - NONE [facility] Encounter Notes: All associated encounter notes This section contains the clinical notes associated to the Encounter. Date/Time Encounter Note(s) Provider Source Apr 14, 2022 02:34 PM NONVA NOTE: CLAUDIA NIÑOCHEVY STEWART [facility] LOCAL TITLE: [facility] SELF PRESENTIN G CARE COORD PLAN N STANDARD TITLE: NONVA NOTE DATE OF NOTE: APR 14, 2022@14:34 ENTRY DATE: APR 16, 2022@14:34:39 AUTHOR: CLAUDIA NIÑO EXP COSIGNER: URGENCY: STATUS: COMPLETED Emergency Notification Intake Date Presenting to the Facility: Mar Method of Contact: Notified from ICRTec worklist Notification ID: [id number] [facility] Referral #: [facility] Name: Hospital: [facility] Address: City: [place] State: [place] Zip Code: Phone : [facility] Facility Point of Contact: Name: DEPT Chief complaint: VOMITING AND DIZZINESS Primary Diagnosis: Disposition Unknown at time of intake note entry 04/16/2022 2:09:42 PM CDT Brandy Cobb CORECTION USED ES JLV IS DOWN 04/16/2022 2:08:49 PM LINDENT Brandy Cobb APPROVED 1703 CHECK FOR DUPL ICATES NONE FOUND. CHECK FOR OHI,24 MONTH. USED [facility] TO VERIFY ALL INFORMATION. SENT EMAIL /paola/ CLAUDIA NIÑO SALES PROPERTY MANAGER Signed: 04/16/2022 14:35 Receipt Acknowledged By: * AWAITING SIGNATURE * LIDIA DELGADO
--- OUTSIDE RECORDS SUMMARY | 2022-04-17 15:50 | XMS_ITS | Clinical Summary ---
:1940 Author Organization [employer] [facility] [employer] [employer] [place] [address] Care Team Providers Name Role Phone Kush Doran MD Primary Care Provider [phone] Viki Abarca MD Unavailable Allergies Active Allergy Reactions Severity Noted Date Comments Furosemide *Unknown 02/19/2020 On Torsemide Unlisted Allergen Hives 04/15/2019 Breaks out in hives (Include Detail In with city Comments) water---certain additives, but unsure which. Drinks w ater bottles only. Propafenone Other - Describe In 02/19/2020 Caused f luid around his Comment Field heart per pt Carbamazepine Intolerance-Can't Per patie nt, it dropped Take his WBC signifi cantly Medications Medication Sig Dispensed Refills Start End Status Date Date amoxicillin (AMOXIL) TAKE 4 CAPSULES 4 Capsule 1 Active 500 mg BY MOUTH 1 HOUR 021 capsuleIndications: BEFORE DENTAL Need for SBE (subacute APPOINTMENT bacterial endocarditis) prophylaxis warfarin (COUMADIN) 2 Take by mouth 1 0 Active mg tabletIndications: mg (2 mg x 0.5) 022 Paroxysmal atrial every Sun, Tue, fibrillation (HC), Alyssa; 2 mg (2 mg Anticoagulation x 1) all other monitoring, INR range days OR as 2-3 directed calcitrioL (ROCALTROL) Take three times 36 capsule. 3 Active 0.25 mcg a week on [facility]'s 022 capsuleIndications: Secondary renal hyperparathyroidism (HC) torsemide (DEMADEX) 20 Take 1 Tablet 180 Tablet 3 Active mg tabletIndications: (20 mg) by mouth 022 CKD (chronic kidney once daily. disease) stage 4, GFR 15-29 ml/min (HC) omeprazole (PRILOSEC) Take 1 Capsule 180 Capsule 3 Active 20 mg Delayed-Release (20 mg) by mouth 022 capsuleIndications: 2 times daily Gastroesophageal before meals. reflux disease without esophagitis CPAPIndications: ELENI t CPAP machine 1 Each 11 Active (obstructive sleep for home use at 022 apnea), Dry mouth pressure: 13 cmw , Heated humidifier x 1 q 5 yr, Humidifier chamber x 1 q 6 mo, Full face mask x1 q 3mos, with cushion x 1 q mo, standard tubing x 1 q 3 mo, Headgear x 1 q 6 mo, Filters: Disposable x 2 q mo non-disposable filters x1 q 6mo, Length of Need: 99 months, Frequency of use: Daily allopurinoL (ZYLOPRIM) TAKE 1 TABLET BY 90 Tablet 0 Active 100 mg MOUTH ONCE DAILY 022 tabletIndications: Gout, unspecified cause, unspecified chronicity, unspecified site metoprolol tartrate TAKE 1 TABLET BY 180 Tablet 0 Active (LOPRESSOR) 25 mg MOUTH TWICE 022 tabletIndications: DAILY Cardiovascular symptoms Dialyvite 100-1 mg tab Take 1 Tablet by 0 Active mouth once 022 daily. sucralfate (CARAFATE) Take 10 mL 828 mL 0 Active 100 mg/mL (1,000 mg) by suspensionIndications: mouth four times Esophageal ulcer with daily before bleeding meals and at bedtime. Take on empty stomach. metoprolol tartrate Take 1 Tablet 180 Tablet 3 03/27 / Discontinued (LOPRESSOR) 25 mg (25 mg) by mouth 2021 tabletIndications: 2 times daily. Cardiovascular symptoms allopurinoL (ZYLOPRIM) Take 1 Tablet 90 Tablet 3 / Discontinued 100 mg (100 mg) by 2021 tabletIndications: mouth once Gout, unspecified daily. cause, unspecified chronicity, unspecified site acetaminophen Take 2 Tablets 30 Tablet 0 2 04/14/ D iscontinued (TYLENOL) 325 mg (650 mg) by 2021 ( Pharmacist tabletIndications: CKD mouth every 4 change per (chronic kidney hours if needed medication disease) stage 4, GFR for Pain. Max history 15-29 ml/min (HC) acetaminophen (E-cancel not dose: 4000mg in sent )) 24 hrs. Active Problems Problem Noted Date Coffee ground emesis 04/14/2022 Trapped lung; Right w/ chronic effusion. 01/11/2022 Empyema, right (HC): tap 300ml 2021. Cx negative. 12/14/2021 Aspiration pneumonitis 04/27/2021 Achalasia; discussed at multidisciplinary conference . No further 10/13/2020 procedural intervention. 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, not on chron ic dialysis 12/27/2018 Metabolic acidosis 12/27/2018 Anticoagulation monitoring, INR range 2-3 [Z79.01] Sensorineural hearing loss, bilateral 07/04/2018 Chronic leukopenia 10/20/2016 Thrombocytopenia 10/20/2016 Adenomatous colon polyp 10/20/2016 Essential hypertension 07/28/2016 Paroxysmal atrial fibrillation 07/28/2016 LVH (left ventricular hypertrophy) 07/28/2016 Overview: Seen on transthoracic echocardiogram . Need for SBE (subacute bacterial endocarditis) prophyl axis 06/29/2016 Overview: See 06/27/16 Amoxicillin refill ELENI 07/29/2003 AHI-17 FFM standard 04/10/2014 ACP (advance care planning) 08/12/2011 Gastric polyps 04/18/2011 Prediabetes 08/09/2010 Osteopenia 05/04/2010 Secondary hyperparathyroidism, renal 04/08/2010 Generalized anxiety disorder 03/28/2007 Gout, unspecified Resolved Problems Problem Noted Date Resolved Date Esophageal dysmotility 10/13/2020 05/18/2021 SOB (shortness of breath) 04/15/2019 09/30/2020 Testicular atrophy 04/13/2012 05/28/2021 Plantar fasciitis 08/12/2011 04/13/2012 Other hyperparathyroidism 01/07/2010 04/08/2010 CKD (chronic kidney disease) stage 4, GFR 15-29 ml/min 12/0105/06/2020 Neutropenia 12/01/2009 09/13/2016 Thrombocytopenia, unspecified 12/01/2009 09/13/2016 Health maintenance examination 02/02/2009 0 Anemia, unspecified 02/02/2009 02/02/2009 Leukopenia 08/21/2008 02/09/2018 Overview: Dr. Perez and marrow bx 2016. No dysplas ia. ?med effect or minor hypersplenism. No changes needed. Kidney transplant ok if /when needed. 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 (end stage renal disease) (HC) (Primary Dx); - Encounter MD Paramjit Esophageal ulcer with bleeding 04/16/2022 Jama Davies MD Ellis, Shane Thomas, MD Hospitalists, [facility] Discharge Summary - Paola Tabares MD - 04/16/2022 1:54 PM CDT Images from the original not e were not included. HOSPITALIST DISCHARGE SUMMAR Y ? ? [facility] Admission Date: 04/14/2022 Discharge Date: 04/16/2022 Discharge Plan: David katz was discharged to home. Principal Diagnosis Esophageal Ulcers Hospital Problem List Principal Problem: Coffee ground emesis Active Problems: Generalized anxiety disorde r Gout, unspecified Essential hypertension Paroxysmal atrial fibrillat ion (HC) Anemia in stage 5 chronic k idney disease, not on chronic dialysis (HC) [place]; [place] [facility] [place]. No further procedural intervention. ADDITIONAL COMMENTS REGARDIN G DIAGNOSIS SPECIFICITY Additional Diagnosis Informa tion ?? Hospital Course Mr. David Castro is a 9 0 y.o. male with a history of achalasia, heart failure with right-sided pleural effusion, paroxysmal atrial fibrillation on Coumadin, obstructive sleep apnea, gout, chronic k idney disease stage V on per itonealdialysis, hypertension, hypothyroidism, general anxiety disorder, dysphagia, anemia, osteopenia, and obstructive sleep apnea on CPAP who presents with 2 days of vomiting coffee-ground emesis and dizziness. Prior to admission: Patient presents to [facility] on 04/13/2022 after multiple episodes of vomiting coffee-ground emesis and dizziness that started on 04/13/2022 at around 3 AM in the morning. I n the morning of 04/13/2022, he also had a fall while taking a shower after multiple episodes of vomiting but did not hit his head. He continues to feel dizzy and nauseous. Denies any abdominal pain, headaches, vision changes. Patient was admitted to [facility]. He was seen by GI and underwent EGD which showed Esophageal ulcer oozing blood. Clip was placed. He was started on sucralfate . He had no further coffee elvia und emesis or any melena. He was found to be iron deficient and was given IV iron sucrose. He also appeared dry and was given IV fluids which likely exacerbated his anemia. He was discharged to home an d will follow up with GI as an outpatient. He will resume outpatient Pe ritoneal dialysis as an outpatient. Recommendations for Outpatie nt Provider ? ? PCP: Kush Doran MD Recommendations for outpati ent provider Specific recommendations to be addressed at the follow up visit: Follow up regarding anemia, continued dysphagia symptoms. Medication regimen changes: see Hospital Course above. Follow-up labs/imaging: none Other specialty follow-up no t included in DC orders: Needs to follow up with gastroenterology Special considerations: none . Functional evaluations: Fall Risk: Total Score (If 5 or > is High Risk): 2 (04/15/22 2200) NuDESC (>/=2 abnormal): 0 ( 04/15/220) MOCA: // SLUMS: Discharge Medications Your Home Medicines START taking these medicines Instructions sucralfate 100 mg/mL suspens ion For diagnoses: Esophageal ul cer with bleeding Commonly known as: CARAFATE Take 10 mL (1,000 mg) by mo uth four times daily before meals and at bedtime. Take on empty stomach. CONTINUE taking these medici jaz Instructions allopurinoL 100 mg tablet For diagnoses: Gout, unspeci fied cause, unspecified chronicity, unspecified site Commonly known as: ZYLOPRIM TAKE 1 TABLET BY MOUTH ONCE DAILY Doctor's comments: Radha chaparro 1 year supply amoxicillin 500 mg capsule For diagnoses: Need for SBE (subacute bacterial endocarditis) prophylaxis Commonly known as: AMOXIL TAKE 4 CAPSULES BY MOUTH 1 HOUR BEFORE DENTAL APPOINTMENT calcitrioL 0.25 mcg capsule For diagnoses: Secondary viry al hyperparathyroidism (HC) Commonly known as: ROCALTROL Take three times a week on [facility]'s CPAP For diagnoses: ELENI (obstruct lynsey sleep apnea), Dry mouth t CPAP machine for home use at pressure: 13 cmw , Heated humidifier x 1 q 5 yr, Humidifier chamber x 1 q 6 mo, Full face mask x1 q 3mos, with cushion x 1 q mo, standard tubing x 1 q 3 mo, Headgear x 1 q 6 mo, Filters: Disposable x 2 q mo non-disposable filters x1 q 6mo, Length of Need: 99 months, Frequency of use: Daily Dialyvite 100-1 mg Tab Generic drug: B Complex-Nat min C-Folic Acid Take 1 Tablet by mouth once daily. metoprolol tartrate 25 mg ta blet For diagnoses: Cardiovascula r symptoms Commonly known as: LOPRESSOR TAKE 1 TABLET BY MOUTH TWIC E DAILY Doctor's comments: Radha chaparro 1 year supply omeprazole 20 mg Delayed-Rel ease capsule For diagnoses: Gastroesophag eal reflux disease without esophagitis Commonly known as: PRILOSEC Take 1 Capsule (20 mg) by m outh 2 times daily before meals. Doctor's comments: Refills w hen needed torsemide 20 mg tablet For diagnoses: CKD (chronic kidney disease) stage 4, GFR 15-29 ml/min (HC) Commonly known as: DEMADEX Take 1 Tablet (20 mg) by mo uth once daily. Doctor's comments: Radha chaparro 1 year supply warfarin 2 mg tablet For diagnoses: Paroxysmal at rial fibrillation (HC), Anticoagulation monitoring, INR range 2-3 Commonly known as: COUMADIN Take by mouth 1 mg (2 mg x 0.5) every Mon, Mon, Mon; 2 mg (2 mg x 1) all other days OR as directed Where to get your medicines These medications were sent to [facility] [id number], [address], [place] [address] Hours: M-F: 8:00am-6:00pm, Sat-Sun: 9:00am-2:00pm ?? sucralfate 100 mg/mL susp ension Pertinent Findings / Procedu res First weight: 71.9 kg (158 l b 8 oz) (04/14/22 1623) Last weight: 75.8 kg (167 lb 1.6 oz) (04/16/22 0600) BP 113/53 (Cuff Size: Adult Regular) Pulse 80 Temp 97.7 ??F (36.5 ??C) Resp 16 Ht 1.727 m (5' 8) Wt 75.8 kg (167 lb 1.6 oz) SpO2 98% BMI 25.41 kg/m?? GENERAL: Lying in bed, no ac robin distress EYES: Anicteric without inje ction. HEAD, EARS, NOSE, MOUTH, AND THROAT: Head and face were normal. Hearing was normal to voice and the ears were normal to external exam. Nose appearance was normal and there was no discharge. Oropharynx was normal. NECK: Neck appearance was no rmal. RESPIRATORY: Breathing patte rn was normal and the chest moved symmetrically. Lung sounds were normal and there were no abnormal sounds. CARDIOVASCULAR: Heart rate a nd rhythm were normal. S1 and S2 were normal and there were no extra sounds or murmurs. There was no peripheral edema. GASTROINTESTINAL: The abdome n was normal in contour. Bowel sounds were present. Palpation detected no tenderness, mass, or enlarged organs. MUSCULOSKELETAL: Skeletal co nfiguration was normal and muscle mass was normal for age. Joint appearance was overall normal. SKIN/HAIR/NAILS: Skin color was normal. Hair and nails were normal. NEUROLOGIC: The patient was alert and conversation was appropriate. Speech was normal. Cranial nerves III-XII grossly intact. Motor strength 5/5 in all extremities. Sensation in extremities intact. PSYCHIATRIC: Mood and affect were pleasant and appropriate. The patient's judgment and insight were normal. Labs Renal Heme GI 04/15/22 0518 SODIUM 147* POTASSIUM 3.6 CHLORIDE 108 [id number] 29 ANIONGAP 10 BUN 99* CREATININE 3.97* GLUCOSE 120* CALCIUM 8.6 04/14/22 1726 04/14/22 2247 04/15/22 0518 04/15/22 1059 WBC 16.5* -- 10.0 -- HGB 10.2* 9.6* 8.8* 9.7* HCT 30.6* -- 26.9* -- MCV 98 100 99 102* MCH 32.5 -- 32.2 -- MCHC 33.3 -- 32.7 -- RDW 12.7 -- 12.8 -- PLT 196 -- 157 -- NEUTROPHILS 91.6 -- 86.1 -- LYMPHS 2.8 -- 5.7 -- MONOS 5.1 -- 6.9 -- EOSINOS 0.0 -- 0.7 -- BASOS 0.1 -- 0.2 -- 04/15/22 0518 INR 1.5* Cardiopulmonary ID Endo COVID-19: Not on local file Micro Imaging Optional Imaging Link - derrek duarte pull in FULL report: XR CHEST 2 VIEWS PA AND LATERAL For Patients: As a result of the Cures Act, medical imaging exams and procedure reports are released immediately into your electronic medical record. You may view this report before your re ferring provider. If you hav e questions, please contact your health care provider. INDICATION: Follow-up pleural effusion TECHNIQUE: Chest 2 views COMPARISON: CT 05/18/2021 FINDINGS: No significant interval christina ge in right pleural effusion with adjacent posterior right lower lobe atelectasis. Trace left pleural effusion/atelectasis suspected. Cardiac silhouette enlarged with chronic pericardial effusion. Tortu osity aorta. No pneumothorax. IMPRESSION: No significant interval christina ge in right pleural effusion with adjacent rounded atelectasis. Dictated by Cinthya Conway @ Jun 16 2021 1:39PM Consultants Encounter Notes Consults from Acacia Zhang MD (Nephrology) Consults from Cindy Lester PA (Physician Immigration Consultant) Diet / Activity / Follow-Up After Discharge Orders and I nstructions After Hospital Follow Up Ap pointment(s) You have a follow up appoin tment with Dieudonne Son MD on April 21 at 10:50 am. You are allowed 1 person to accompany you and both are required to wear masks in clinic. Please arrive 15 minutes early to register an d bring your hospital After Visit Summary, insurance information and photo identification. If you need to reschedule your appointment, please call [phone]. [facility] [address] [place] [address] When to follow up: 1 to 5 d ays When is patient being disch arged?: Today Discharge instructions afte r receiving anesthesia or sedation: * You have received medicin e (anesthesia, sedation or both) that made you sleepy. This will affect your ability to think clearly and make good decisions. * For your safety, you will need a responsible adult to drive you home and to stay with you for 24 hours. * For 24 hours: - Do not drive or use any ma chinery. - Do not make important deci sions. - Do not drink alcohol. (It is also important to not drink alcohol as long as you are taking prescription pain medicine.) Moving around after your vi sit: Activity as tolerated. Other activities: - Avoid smoking. - Avoid alcohol for 24 hours . PATIENT COMMUNICATION Please call [facility] PRISCA GAMEZ at [phone] to schedule a follow up appointment with Shower Attendant. Primary Care Provider meño w up appointment(s) Kush Doran MD When to follow up: 1 to 5 d ays Regular diet: Blended liquid diet Up as tolerated It is important to slowly r eturn to your regular level of activity. Start with 5-10 minutes at one time and slowly build to 30 minutes at one time. Save your energy by spreading out activities that make you tired. Rest as needed. What you may eat and drink after your hospital visit: Resume previous diet as abl e. When should you be concerne d? Call your health care provi myra if you have: - fever over 101 degrees Fah renheit - difficulty swallowing - persistent vomiting after you arrive home - bleeding (more than 2 tabl espoons) - bloody or black stools - persistent pain - persistent dizziness or li ght-headedness - extreme fatigue - chest or abdominal pain - difficulty breathing - in an emergency, call 911 or go to an Emergency Room. When should you be concerne d? Your health care provider i s: Kush Doran MD Please call your health care provider if: - you feel you are getting w orse or having an increase in problems - fever greater than 101 deg latoya - increasing shortness of br eath - any signs of infection (in creasing redness, swelling, tenderness, warmth, change in appearance, or increased drainage) - blood in your urine or sto ol - coughing or vomiting blood - nausea (upset stomach) and vomiting and/or diarrhea that will not stop - severe pain that is not re lieved by medicine, rest or ice Call 911 if you feel you are having a medical emergency. [facility] were [facility] at the [facility]? The reason you were in the hospital was for an EGD (also called Esophagogastroduodenoscopy) Why were you at the [facility]? You were in the hospital fo r esophageal ulcers with bleeding. Pending Studies Lab results that may not be resulted at time of discharge: (From admission through now) Start Ordered 04/16/22 1130 VITAMIN B12 O NE TIME, RA 04/16/22 1126 Total time spent on discharg e coordination: 35 minutes. Patient was seen and examined today. Spencer Tabares MD Hospitalist, [facility] ? ? [phone] 04/13/2022 Orders Only Scanner <No scans attac hed> 04/08/2022 Orders Only Lab, [facility] Anticoagulation 04/08/2022 Anticoagulation (warfarin) 1, [facility] Anticoagulation 04/08/2022 Travel 03/25/2022 Orders Only Lab, [facility] Lab 03/25/2022 Anticoagulation (warfarin) 1, [facility] Anticoagulation 03/25/2022 Travel 03/24/2022 Refill Kush Doran Refill Requ est MD Bebe (Allopurinol, M etoprolol Tartrate) 03/22/2022 Telephone Sebastian Charles Prior Autho rization MD Jamal (calcitrioL (RO CALTROL) 0.25 mcg capsul e DENIED) 03/21/2022 Telephone Kush Doran Anticoagula tion (Annual MD Bebe re-enrollment ) 02/28/2022 Anticoagulation (warfarin) 1, [facility] Anticoagulation 02/25/2022 Orders Only Lab, [facility] 02/25/2022 Travel 01/24/2022 Office Visit Florian Villalobos MD Sleep Follow -up (CPAP) 01/24/2022 Travel from Last 3 Months Immunizations Name Administration Dates Next Due AMB Influenza, IIV4 PF (=>6 mos 06/13/2018 Flulaval,Fluzone Fluarix)(Flu Clinic Only) COVID-19 vaccine (Newsreps 05/18/2021, 10/14/2020, 30mcg/0.3mL) PF, MDV Hepatitis B (Adult) 12/22/2008, 07/21/2008, 06/19/2008 Influenza, High-dose Inactivated 05/18/2016, 06/09/2015, Influenza, IIV3 (Age 6-35 mos) 05/13/2011, 05/04/2010 Influenza, IIV3 (Age >=3 years) 05/16/2013, 04/13/2012, 04/22, 05/04/2010, 07/18/2007, 06/15/2006, 07/12/2002 Influenza, Inactivated AIIV4 (Age 65+ 05/18/2021, 05/06/2020 Years) Preserv Free Influenza, Inactivated IIV3 (Age 65+ 05/28/2019, 05/09/2017 Years) Preserv Free Pneumococcal Poly,23-Valent 02/02/2009 (Pneumovax) Pneumococcal conj 13-Valent (Prevnar 11/05/2014 13) Td, Preservative Free (age >= 7 03/18/2008 Years) Tdap 07/10/2014 Tuberculin (PPD) 07/21/2008 Zoster (Shingrix-RZV, recombinant) 02/14/2019, 12/11/2018 Zoster (Zostavax-ZVL, live) 04/08/2010 Family History Medical History Relation Name Comments Good Health Brother 1 Good Health Brother 2 Hyperlipidemia Father diet controlled/ diet controlled Psychiatric illness Father etoh Cancer Mother brain Good Health Sister 1 Good Health Sister 2 Anesthesia Problem No Family History Relation Name Status Comments Brother 1 Brother 2 Father (Age 32) alcholol relat ed Mother cancer Sister 1 Sister 2 Social History Tobacco Use Types Packs/Day Years Used Date Former Smoker Quit: 1966 Smokeless Tobacco: Never Used Tobacco Cessation: Counseling Given: Yes Comments: Quit over 50 years ago. Alcohol Use Standard Drinks/Week Comments No 0 (1 standard drink = 0.6 oz pure alcoho l) Sex Assigned at Date Recorded Not on file COVID-19 Exposure Response Date Recorded In the last 10 days, have you been in contact with No / Unsu re 04/15/2022 7:29 AM CDT someone who was confirmed or suspected to have Coronavirus/COVID-19? Obstetrics History Last Filed Vital Signs Vital Sign Reading Time Taken Comments Blood Pressure 113/53 04/16/2022 10:27 AM CDT Pulse 80 04/16/2022 10:27 AM CDT Temperature 36.5 ??C (97.7 ??F) 04/16/2022 10:27 AM CDT Respiratory Rate 16 04/16/2022 10:27 AM CDT Oxygen Saturation 98% 04/16/2022 10:27 AM CDT Inhaled Oxygen Concentration - - Weight 75.8 kg (167 lb 1.6 oz) 04/16/2022 6:00 AM CDT Height 172.7 cm (5' 8) 04/14/2022 4:23 PM CDT Body Mass Index 25.41 04/14/2022 4:23 PM CDT Plan of Treatment Upcoming Encounters Date Type Specialty Care Team Description 04/21/2022 Office Visit Dieudonne Son MD [phone] ([place]) 04/26/2022 Orders Only Lab, [facility] 05/30/2022 Office Visit Kush Doran MD [address] [phone] ([place]) Health Maintenance Due Date Last Done Comments COVID-19 vaccine series (4 - 09/17/2021 05/18/2021, 021, Booster for Pfizer series) 09/23/2020 Influenza for age 65+ 04/21/2022 05/18/2021, 05/06/2020, 05/28/2019, Additional history exists Depression screening for age 12+ 05/28/2022 05/28/2021, 03/2021, 03/30/2020, Additional history exists Medicare Wellness for age 65+ 05/28/2022 05/28/2021, 2019, 03/20/2019, Additional history exists BMI (ht and wt on same day) for 08/09/2022 08/09/2021, 1003/2021, age 18+ 05/07/2021, Additional history exists Tetanus booster 07/10/2024 07/10/2014, 03/18/2008 Tdap Completed 07/10/2014 Pneumococcal series for age 65+ Completed 11/05/2014, 01/19 Zoster (shingles) series for age Completed 02/14/2019, , 50+ 04/08/2010 Medical Devices Implanted Type Area Mail Processing Clerk Device Shelf Model / Identifier Expiration Serial / Date Lot Cath Dial Adlt Std Merit Classic Peritoneal Perc N/A: Abdome n 05/14/2024 CF- [id number] / Implanted: Qty: 1 on 08/16/2021 by Clayton Burgess MD at [facility] / Description: CATH DIAL ADLT STD MERIT CL ASSIC PERITONEAL PERC Procedures Procedure Name Priority Date/Time Associated Diagnosis Comme nts IRON PLUS IRON BINDING Early AM 04/16/2022 6:37 Re sults for this CAP AM CDT procedure are i n the results section. HEMOGLOBIN Early AM 04/16/2022 6:37 Results for this AM CDT procedure are i n the results section. BASIC METABOLIC PANEL Early AM 04/16/2022 6:37 Res ults for this AM CDT procedure are i n the results section. ENDOSCOPY 04/15/2022 4:25 Results for this PM CDT procedure are i n the results section. HEMOGLOBIN Today 04/15/2022 10:59 Results for this AM CDT procedure are i n the results section. FERRITIN RA 04/15/2022 5:18 Results for this AM CDT procedure are i n the results section. CBC WITH AUTO Early AM 04/15/2022 5:18 Results for this DIFFERENTIAL AM CDT procedure are i n the results section. PROTIME-INR Early AM 04/15/2022 5:18 Results for this AM CDT procedure are i n the results section. CBC WITH AUTO Early AM 04/15/2022 5:18 Results for this DIFFERENTIAL AM CDT procedure are i n the results section. BASIC METABOLIC PANEL Early AM 04/15/2022 5:18 Res ults for this AM CDT procedure are i n the results section. HEMOGLOBIN Today 04/14/2022 10:47 Results for this PM CDT procedure are i n the results section. CBC WITH AUTO Today 04/14/2022 5:26 Results for this DIFFERENTIAL PM CDT procedure are i n the results section. CBC WITH AUTO Today 04/14/2022 5:26 Results for this DIFFERENTIAL PM CDT procedure are i n the results section. SCAN-CT INTERPRETATION 04/13/2022 12:00 AM CDT INR,POCT Routine 04/08/2022 8:33 Paroxysmal atrial Results for this AM CDT fibrillation (HC ) procedure are in Anticoagulation the results monitoring, INR section. range 2-3 INR,POCT Routine 03/25/2022 7:37 Paroxysmal atrial Results for this AM CDT fibrillation (HC ) procedure are in Anticoagulation the results monitoring, INR section. range 2-3 INR,POCT Routine 02/25/2022 8:10 Paroxysmal atrial Results for this AM CDT fibrillation (HC ) procedure are in Anticoagulation the results monitoring, INR section. range 2-3 SCAN-DIAGNOSTIC REPORT 01/24/2022 12:00 R esults for this AM CDT procedure are i n the results section. from Last 3 Months Results (ABNORMAL) IRON PLUS IRON BINDING CAP (04/16/2022 6:37 AM CDT) P athologist Signature IRON 17 (L) 31 - 144 04/16/2022 [facility] ug/dL 8:12 AM CDT [facility] UIBC 215 04/16/2022 [facility] (UNSATURATED) 8:[address] [facility] IRON BINDING 232 (L) 245 - 400 04/16/2022 [facility] CAPACITY ug/dL 8:12 AM CDT [facility] IRON,% 7 (L) 20 - 55 % 04/16/2022 [facility] SATURATION 8:12 AM CDT [facility] Specimen Anatomical Collection Method / Collection Time Recei thony Time (Source) Location / Volume Laterality Blood BLOOD SPECIMEN / Venipuncture / 04/16/2022 6:37 2021 7:12 Unknown Unknown AM CDT AM CDT Spencer Tabares MD CHEMISTRY Performing Organization Address [facility] Phon e Number [address] [address] CENTER (ABNORMAL) HEMOGLOBIN (04/16/2022 6:37 AM CDT)Only the most recent of3 results within the time period is included. P athologist Signature HEMOGLOBIN 7.4 (L) 13.5 - 17.5 04/16/2022 [facility] g/dL 7:33 AM CDT [facility] MCV 102 (H) 80 - 100 fL 04/16/2022 [facility] 7:33 AM CDT [facility] Specimen Anatomical Collection Method / Collection Time Recei thony Time (Source) Location / Volume Laterality Blood BLOOD SPECIMEN / Venipuncture / 04/16/2022 6:37 2021 7:12 Unknown Unknown AM CDT AM CDT Spencer Tabares MD HEMATOLOGY Performing Organization Address [facility] Phon e Number [address] [address] CENTER (ABNORMAL) BASIC METABOLIC PANEL (04/16/2022 6:37 AM CDT)Only the most recent of 2 resultswithin the time period is included. Analysis Performed At Patho logist Time Signature SODIUM 145 135 - 145 04/16/2022 [facility] mmol/L 7:40 AM CDT [facility] POTASSIUM 3.4 (L) 3.5 - 5.0 04/16/2022 [facility] mmol/L 7:40 AM T [facility] CHLORIDE 108 98 - 110 04/16/2022 [facility] mmol/L 7:40 AM CDT [facility] CO2,TOTAL 29 21 - 31 04/16/2022 [facility] mmol/L 7:40 AM CDT [facility] ANION GAP 8 5 - 18 04/16/2022 [facility] 7:40 AM [facility] GLUCOSE 106 (H) 65 - 100 04/16/2022 [facility] mg/dL 7:40 AM [facility] CALCIUM 8.5 8.5 - 10.5 04/16/2022 [facility] mg/dL 7:40 AM [facility] BUN 83 (H) 8 - 25 04/16/2022 [facility] mg/dL 7:40 AM [facility] CREATININE 3.77 (H) 0.72 - 04/16/2022 [facility] 1.25 mg/dL 7:40 AM [facility] BUN/CREAT RATIO 22 (H) 10 - 20 04/16/2022 [facility] 7:40 AM [facility] eGFR 15 (L) >90 04/16/2022 [facility] mL/min/1.7 7:40 AM [place] [address] CENTER Comment: As of 2021, eGFR is calcu lated by the CKD-EPI creatinine equation without race adjustment. eGFR can be inf luenced by muscle mass, exercise, and diet. The reported eGFR is an estimation only and is only applicable if the renal function is stable. Specimen Anatomical Collection Method / Collection Time Recei thony Time (Source) Location / Volume Laterality Blood BLOOD SPECIMEN / Venipuncture / 04/16/2022 6:37 2021 7:12 Unknown Unknown AM CDT AM CDT Spencer Tabares MD CHEMISTRY Performing Organization Address City/State/ZIP Code Phon e Number [place] [id number] [place] [address] CENTER ENDOSCOPY (04/15/2022 4:25 PM CDT) Specimen (Source) Anatomical Collection Method Collection Time Re ceived Time Location / / Volume Laterality 04/15/2022 4:25 PM CDT Narrative This result has an attachment that is no t available. Transcriptions Tai Ozuna MD - 04/15/2022 4:58 PM CDT Endoscopy Patient Name: David Castro Procedure D ate: 04/15/2022 Gender: Male Date of : 1940 Admit Type: Inpatient Procedure: Upper GI endoscopy Proceduralist: Tai Ozuna MD Indications/Pre-Op Diagnosis: Epigastric abdominal pain, Dysphagia, Coffee-ground emesis, Melena Medications: Monitored Anesthesia Care Procedure Description: Risk of bleeding, infection, perforatio n, need for surgery and alternatives discussed. The endoscope was introduced through th e mouth, and advanced to the second part of duodenum. The upper GI e ndoscopy was accomplished without difficulty. The patient tolerated the p rocedure well. Complications: No immediate complication s. Estimated Blood Loss & Specimen: Estimated blood loss: none. Specimen collected: None Findings: Few superficial esophageal ulcers with no stigmata of recent bleeding were found in the lower third of the es ophagus. One superficial esophageal ulcer oozing blood was found in the middle third of the esophagus. The lesion was 6 mm in largest dimension. For hemostasis, one hemostatic clip was suc cessfully placed. There was no bleeding at the end of the procedure. The lumen of the upper third of the eso phagus and middle third of the esophagus was severely dilated. The entire examined stomach was normal. Biopsies were taken with a cold forceps for histology. The first portion of the duodenum and s econd portion of the duodenum were normal. Impressions/Post-Op Diagnosis: - Esophageal ulcers with no stigmata of recent bleeding. - Esophageal ulcer oozing blood. Clip w as placed. - Dilation in the upper third of the es ophagus and in the middle third of the esophagus. - Normal stomach. Biopsied. - Normal first portion of the duodenum and second portion of the duodenum. - Severe dilation of upper and middle e sophagus with stasis in the esophagus. Patient's achalasia likely h as not resolved with recent myotomy. Patient has multiple ulcers in the esophagus which is likely from stasis and at this scenario, PPI l ikely not helping and patient would need barrier agent such as carafa te (yes, aware of patient's HD and need monitoring of aluminum level). Recommendation: - Return patient to [facility] for o ngoing care. - Clear liquid diet. - Continue present medications. - Use sucralfate suspension 1 gram PO Q ID, can dissolve in water and swallow. - Outpatient manometry or XR esophagram . Tai Ozuna MD 04/15/2022 4:58:43 PM This report has been signed electronical ly. Note Initiated On: 04/15/2022 4:25 PM Total Procedure Duration Time 0 hours 8 minutes 4 seconds Tai Ozuna MD PROCEDURE ORD (ABNORMAL) CBC WITH AUTO DIFFERENTIAL (04/15/2022 5:18 AM CDT)Only the most recent of2 resultswithin the time period is included. [facility] gist Method Time Signature WHITE BLOOD 10.0 4.5 - 11.0 04/15/2022 [facility] COUNT thou/cu mm 5:34 AM CDT [facility] RED BLOOD COUNT 2.73 (L) 4.30 - 04/15/2022 [facility] 5.90 5:[address] [facility] mil/cu mm CENTER HEMOGLOBIN 8.8 (L) 13.5 - 04/15/2022 [facility] 17.5 g/dL 5:[address] [facility] HEMATOCRIT 26.9 (L) 37.0 - 04/15/2022 [facility] 53.0 % 5:[address] [facility] MCV 99 80 - 100 04/15/2022 [facility] fL 5:[address] [facility] MCH 32.2 26.0 - 04/15/2022 [facility] 34.0 pg 5:34 AM CDT [facility] MCHC 32.7 32.0 - 04/15/2022 [facility] 36.0 g/dL 5:34 AM CDT [facility] RDW 12.8 11.5 - 04/15/2022 [facility] 15.5 % 5:[address] [facility] PLATELET COUNT 157 140 - 440 04/15/2022 [facility] thou/cu mm 5:[address] [facility] MPV 8.7 6.5 - 11.0 04/15/2022 [facility] fL 5:[address] [facility] NRBC 0.0 % 04/15/2022 [facility] 5:[address] [facility] ABS NRBC 0.0 thou /cu 04/15/2022 [facility] mm 5:[address] [facility] NEUTROPHILS 86.1 % 04/15/2022 [facility] 5:[address] [facility] LYMPHOCYTES 5.7 % 04/15/2022 [facility] 5:[address] [facility] MONOCYTES 6.9 % 04/15/2022 [facility] 5:[address] [facility] EOSINOPHILS 0.7 % 04/15/2022 [facility] 5:[address] [facility] BASOPHILS 0.2 % 04/15/2022 [facility] 5:34 AM CDT [facility] MED CENTER IMMATURE 0.4 % 04/15/2022 [facility] GRANULOCYTES(MET 5:34 AM CDT [facility] CENTER ABSOLUTE 8.7 (H) 1.7 - 7.0 04/15/2022 [facility] NEUTROPHILS thou/cu mm 5:[address] [facility] ABSOLUTE 0.6 (L) 0.9 - 2.9 04/15/2022 [facility] LYMPHOCYTES thou/cu mm 5:34 AM CDT [facility] MED CENTER ABSOLUTE 0.7 <0.9 04/15/2022 [facility] MONOCYTES thou/cu mm 5:[address] [facility] ABSOLUTE 0.1 <0.5 04/15/2022 [facility] EOSINOPHILS thou/cu mm 5:34 AM CDT [facility] ABSOLUTE 0.0 <0.3 04/15/2022 [facility] BASOPHILS thou/cu mm 5:34 AM CDT [facility] MED CENTER ABSOLUTE 0.0 <0.3 04/15/2022 [facility] IMMATURE thou/cu mm 5:34 AM CDT [facility] GRANULOCYTES(MET CENTER ,MYELOS,PROS) Specimen Anatomical Collection Method / Collection Time Recei thony Time (Source) Location / Volume Laterality Blood BLOOD SPECIMEN / Venipuncture / 04/15/2022 5:18 2021 5:31 Unknown Unknown AM CDT AM CDT Nahomy Briceno NP HEMATOLOGY Performing Organization Address [facility] Phon e Number [address] [address] CENTER (ABNORMAL) PROTIME-INR (04/15/2022 5:18 AM CDT) P athologist Signature INR 1.5 (H) <1.3 04/15/2022 [facility] 5:50 AM CDT [facility] PROTIME 17.5 (H) 12.0 - 13.8 04/15/2022 [facility] sec 5:50 AM CDT [facility] Specimen Anatomical Collection Method / Collection Time Recei thony Time (Source) Location / Volume Laterality Blood BLOOD SPECIMEN / Venipuncture / 04/15/2022 5:18 2021 5:31 Unknown Unknown AM CDT AM CDT Narrative [facility] - 022 5:50 AM CDT ?Therapeutic Range 2.0-3.0 for most anticoagulated patients 2.5-3.5 or 4.0 for high risk patients The INR is only used for patients on sta ble oral anticoagulant therapy. It makes no significant contribution to the diagnosis or treatment of patients whose Protime is prolonged f or other reasons. Nahomy Briceno NP HEMATOLOGY Performing Organization Address [facility] Phon e Number [address] [address] CENTER FERRITIN (04/15/2022 5:18 AM CDT) P athologist Signature FERRITIN 44.8 22.0 - 04/15/2022 [facility] 275.0 ng/mL 7:30 PM CDT [facility] Specimen Anatomical Collection Method / Collection Time Recei thony Time (Source) Location / Volume Laterality Blood BLOOD SPECIMEN / Venipuncture / 04/15/2022 5:18 2021 5:31 Unknown Unknown AM CDT AM CDT Spencer Tabares MD CHEMISTRY Performing Organization Address City/[facility] Phon e Number [address] [place] [address] CENTER SCAN-CT INTERPRETATION (04/13/2022 12:00 AM CDT) Narrative This result has an attachment that is no t available. Scanner OTHER (ABNORMAL) INR,POCT (04/08/2022 8:33 AM CDT)Only the most recent of3 results within the time period is included. P athologist Signature INR 2.6 (H) <1.3 04/08/2022 [facility] 8:39 AM CDT [facility] Specimen Anatomical Collection Method Collection Time Receive d Time (Source) Location / / Volume Laterality Blood BLOOD SPECIMEN / 04/08/2022 8:33 AM 04/08 8:39 Unknown CDT AM CDT Narrative [facility] - 2021 8:39 AM CDT ?Therapeutic Range 2.0-3.0 for most anticoagulated patients 2.5-3.5 or 4.0 for high risk patients Kush Doran MD LABORATORY Performing Organization Address City/State/ZIP Code Phon e Number [facility] [address] [place], [place] [id number] SCAN-DIAGNOSTIC REPORT (01/24/2022 12:00 AM CDT) Narrative This result has an attachment that is no t available. 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 on Healthcare Directive 05/16/2018 3:06 PM [employer] DIRECTIVE, YANY LAW OFFI CE, 09/14/2005 Latest Code Status on File Code Status Date Activated Date Inactivated Comments Full Code 04/14/2022 4:59 PM 04/16/2022 4:20 PM Code Status Discussion: Reviewed Preferences Full Code 08/16/2021 7:38 AM 08/16/2021 3:13 PM Code Status Discussion: Not Discussed Full Code 12/03/2020 10:19 AM 12/04/2020 4:19 PM Code Status Discussion: Not Discussed Full Code 09/30/2020 3:29 AM 10/01/2020 5:57 PM Code Status Discussion: Discussed Full Code 04/15/2019 10:18 AM 04/20/2019 2:23 PM Code Status Discussion: Discussed Care Teams Senior Linux Systems Engineer Relationship Specialty Start Date End Date Kush Doran MD PCP - General Family Practice 01/31/17 [address] [place] [address] Viki Abarca MD Gastroenterology 10/13/[address] [place] [id number]
--- OUTSIDE RECORDS SUMMARY | 2022-04-17 15:50 | XMS_ITS ---
:[address] [facility], NA DOCUMENT DISCLAIMER The information in the [facility] Continuity of Care Document represents a summary [...] Sign Value Date / Time Blood Pressure-sitting 117/62 mmHg April 17, 2022 1 2:00 AM Heart Rate 87 beats per minute April 17, 2022 12:0 0 AM Temperature 96.8 deg. F April 17, 2022 12:0 0 AM Weight Vital Sign Value Date / Time Estimated Dry Weight 77.5 kg March 30, 2022 11: 59 PM Post-Dialysis 75.19 kg April 17, 2022 12:0 0 AM Other Other Value [...] 58 mcg/dL Females: 30-160 - March 30 mcg/dL Males: 45-160 mcg/dL JUAN ANTONIO 1.8 [...] BUN/Creat Ratio 21.1 -20 High March 30 Creatinine, Serum 3.60 mg/dL [...] 30, 2022 Frequency 7X [facility] [place] Estimated Dry Weight 77.5 kg Calcium Content [...] Effective Date Resuscitation status Full Code Sebastian Lantiguamian Sep 13 2 DIALYSIS TREATMENTS (CAPD/CCPD treatments include self-reported information entered by the patient and may not contain the complete representation of a treatment.) CCPD-PatientHub Date Exchanges Fill Volume Exchange Dialysis Access Meds-ent ered by Solution patient April 17 of 1 - Dextrose 1.5% Peritoneal Leigh lysis-PD Catheter-Double Cuff Coiled, Right Upper Quadrant of Abdomen - 2021 Access Placed on 2020 Vitals Time Weight BP Heart Rate Temperature Blood Sugar April 17, 2022 75.19 kg 117/62 mmHg 87 beats per 96.8 deg. F - (AM) minute [facility]CPD-Patient[facility] Date [...] per 96.6 deg. F - (AM) minute CCPD-Cycler Date Treatment Total Total Exchange Total Dialysis Meds-entered by [employer] Fill Solution Exchange Access patient Volume Solution April 16, 2022 - - 4 5912.0 mL Dextrose 1.5% - Peritoneal Dialysis-PD Catheter- Double Cuff Coiled, Right Upper Quadrant of Abdomen - Access Placed o n August 16, 2021 Dextrose 2.5% - Dextrose 4.25% -
--- OUTSIDE RECORDS SUMMARY | 2022-04-17 15:50 | XMS_ITS | Clinical Summary ---
:1940 Author Organization [facility] Address [address] [place] [address] Care Team Providers Name Role Phone Unavailable Primary Care Provider Unavailable Source Comments Patient records contain information from all sites at [facility]. For routine questions regarding patient records, call [phone] during business hours, M-F 8:00 AM - 5:00 PM Central Time. Record requests for emergency care only can be directed to [phone] at any time.[facility] Allergies Active Allergy Reactions Severity Noted Date [...] and dinner. Active Problems Problem Noted Date Director It Project (Current) Anticoagulant Treatment 12/09/2021 Hypertension And End [...] Date Type Specialty Care Team Description 04/15/2022 Virtual Visit Cardiovascular Heredia, Stenosis Aor tic Valve Acquired (Primary Dx); Disease Jessa M, Effusion Perica rdial Acute (HCC) Alyssa Melton M.D. 04/12/2022 Clinical Admitting/Central Pre-visit Intake Communication Scheduling 04/05/2022 Hospital Encounter Cardiovascular Stan Herediajonathano n Disease Jessa M, Pericardial Acu steffi Tsang ([facility]) 04/04/2022 Hospital Encounter Cardiovascular Neno Madeleineo n Pericardial Acute ([facility]); Disease Liselle M, Chronic Systoli c (Congestive) Heart Failure ([facility]); SILO FILLER, C.N.P. Atrial Fibrilla tion Paroxysmal ([facility]); Bundle Branch B lock Left; Dialysis Perito ibis Status ([facility]) 04/04/2022 Hospital Encounter Laboratory Medicine Neno, Ef fusion Pericardial Acute ([facility]); Liselle M, Chronic Systoli c (Congestive) Heart Failure ([facility]); SILO FILLER, C.N.P. Atrial Fibrilla tion Paroxysmal ([facility]); Bundle Branch B lock Left; Dialysis Perito ibis Status ([facility]) 03/03/2022 Clinical Pulmonary Medicine Yan, Release o f Communication Jessa Mendes, Information M.Candida 03/02/2022 Hospital Encounter Pulmonary Medicine Yan Eff usion Pleural Jessa Mendes, (Primary Dx) M.DBailey 03/02/2022 Hospital Encounter Radiology LiorPeng becerril, Pneumoni tis Due To M.D. Inhalation Of F ood And Vomit ([facility]) 03/02/2022 Clinical Cardiovascular Emergency Dispatcher, Triage Communication Alysa Alcaraz M.D. 03/02/2022 Orders Only Pulmonary Medicine Yan, Effusion Jessa Mendes, Pericardial Acu steffi Tsang ([facility]) (Primary Dx) 01/26/2022 Refill Pulmonary Medicine [...] How often do you attend synagogue or yarsani More than 4 time s per year 04/11/2022 services? Do you belong to any clubs or organizations Yes 04/11/2022 such as synagogue groups, unions, fraMayi Zhaopin or athletic groups, or school groups? How [...] Sign Reading Time Taken Comments Blood Pressure 110/60 04/14/2022 9:33 AM CDT Pulse 63 03/02/2022 11:16 AM [...] 03/02/2022 11:16 AM CDT Plan of Treatment Health Maintenance Due Date Last Done Comments Depression Screening (Annual 08/21/2021 PHQ-2) COVID-19 Vaccine (4 - Booster for 09/17/2021 05/18/2021, , Pfizer series) 09/23/2020 Influenza Vaccine (#1) 2022 05/18/2021, 05/06/2020, 05/06/2020, Additional history exists Creatinine Level 04/04/2023 04/04/2022, 12/11/2021, 12/10/2021, Additional history exists Potassium Level 04/04/2023 04/04/2022, 12/11/2021, 12/10/2021, Additional history exists Sodium Level 04/04/2023 04/04/2022, 12/11/2021, 12/10/2021, Additional history exists Office Visit for Blood Pressure 04/14/2023 04/14/2022 Check / Re-check DTaP,Tdap,and Td Vaccines (2 - Td 07/10/2024 07/10/2014, or Tdap) Pneumococcal vaccine (65+ years) Completed 11/04/2014, Zoster Vaccines Completed 02/14/2019, 12/11/2018, 04/08/2010 Fall Risk Screen (Annual) Completed 12/10/2021 Medical Devices Implanted Type Area Shuttle Hand Device Shelf Model / Identifier Expiration Date Ser ial / Lot Osteomed-Screw Auto-Drive 1.6 X 4 - Baptiste [id number] Hardware e.g. Mobeon Implanted: Qty: 16 on 06/19/2002 pins/screws/r ods Description: Device Shuttle Hand - Cursogram. Device Status Text - [id number]. Procedures Procedure Name Priority Date/Time Associated Comments Diagnosis OUTSIDE CT BODY Routine 04/13/2022 Results for 10:35 PM CDT this procedure are in the results section. (TTE) 2D ECHO Routine 04/05/2022 3:55 Effusion Results for DOPPLER COLOR PM CDT Pericardial Acute this proc edure ([facility]) are in the results section. ECG Routine 04/05/2022 2:01 Effusion Results for PM CDT Pericardial Acute this proce dure ([facility]) are in the results section. 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 from Last [address] ABDOMEN PELVIS WO CON-Outside CT Body (04/13/2022 10:35 PM CDT) Specimen (Source) Anatomical Location Collection Method / Collectio n Time Received Time / Laterality Volume Narrative IIMS - 04/14/2022 9:57 AM CDT This order has been created and auto-finalized to support the import of outside images. If available, original i nterpretation can be found on the Media Tab in Chart Review, in Document V iewer, or as an image in QREADS. If a re-interpretation or overread is re quired please follow defined workflow. ?? Provider Not In System IMG CT PROCEDURES Performing Organization Address City/State/ZIP Code Phon e Number IIMS II NA (TTE) 2D ECHO DOPPLER COLOR (04/05/2022 3:55 PM CDT) [facility] Method Time Signature Ejection Fraction 66 MC [...] was performed but not reported based on sign language interpreter's judgment. No regional wall motion abnormalities. [...] Signature Ventricular Rate 62 BPM MUSE ECG/Min MD Interval 206 ms MUSE QRSD Interval 128 ms MUSE QT Interval 446 ms MUSE QTC Interval 452 ms MUSE P Julian 10 degrees MUSE R Julian 6 degrees MUSE T Wave Julian 26 degrees MUSE Specimen Anatomical Collection Method [...] MUSE NA HOLTER MONITOR - IN CLINIC RUBBER GOODS INSPECTOR (04/05/2022 6:00 AM CDT) P athologist Signature [...] Duration 6h 30m duration INFOBIONIC MOME AF [place] 29 percent INFOBIONIC MOME Longest AF 7h [...] seen singly at and around these times. Marker Machine: Marilou Zimmer / Violet Cotton Fellow: Clemente [...] seen singly at and around these times. Marker Machine: Marilou Zimmer / Violet Cotton Fellow: Clemente Dos Santos MD Mehrdad Lazcano APRN, C.N.P. CV CARDIAC SERVICES PRO CEDURES Performing Organization Address City/State/ZIP Code Phon e Number INFOBIONIC MOME INFOBIONIC MOME NA (ABNORMAL) Sedimentation Rate (04/04/2022 11:36 AM CDT) [facility]appli Method Time Signature Sedimentation 61 (H) 3 - 28 04/04/2022 DTL Rate, B mm/h 12:50 PM CDT Specimen Anatomical Collection Method Collection Time Receive d Time (Source) Location / / Volume Laterality Blood (Blood, 04/04/2022 11:36 04/04/2022 Venous) AM CDT 11:56 AM CDT Mehrdad Lazcano APRN, C.N.P. LAB BLOOD ADD-ON Performing Organization Address City/State/ZIP Code Phon e Number [facility] - [address] [place], [place] [address] [facility] [place] [address] [facility] [address] [facility] (ABNORMAL) CBC with Differential, Blood (04/04/2022 11:36 AM CDT) Zappli Method Time Signature Hemoglobin 11.7 (L) 13.2 [...] Organization Address City/State/ZIP Code Phon e Number [facility] - [address] [place] [address] [facility] [place] [address] [facility] [address] (ABNORMAL) NT-Pro B-Type Natriuretic Peptide (BNP) [...] C.N.P. LAB BLOOD ADD-ON Performing Organization Address City/[facility] Phon e Number [facility] - [address] (ABNORMAL) CRP (C-Reactive Protein) (04/04/2022 11:35 AM CDT) P athologist [facility] C-Reactive 16.2 (H) <=8.0 mg/L 04/04/2022 DTL Protein (CRP), 1:55 PM CDT S Specimen Anatomical Collection Method Collection Time Receive d Time (Source) Location / / Volume Laterality Blood (Blood, 04/04/2022 11:35 04/04/2022 Venous) AM CDT 12:06 PM CDT Mehrdad Lazcano APRN, C.N.P. LAB BLOOD ADD-ON Performing Organization Address City/[facility] Phon e Number [facility] - [address] (ABNORMAL) Comprehensive Metabolic Panel (04/04/2022 11:35 [...] 04/04/2022 DTL Black/ mL/min/BSA 1:48 PM CDT Qatari Comment: ----ADDITIONAL INFORMATION---- Estimated GFR calculated using [...] Organization Address City/State/ZIP Code Phon e Number [facility] - [address] [place], [place] [address] [facility] [place] [address] [facility] [address] Chest [...] Phone Address Typ e / Group Dates [facility] MEDIC[facility] [id number] 2018-Pres [phone] PPO COMPLETE ent [phone] [place] [address] FOR LIFE FOR [id number] 2018-Pre [phone] [address] Indemnity LIFE sent [phone] [place] [address] Advance Directives For more information, please contact: [phone] Latest Code Status on File Code Status Date Activated Date Inactivated Comments Full Code 12/09/2021 5:10 PM 12/11/2021 2:46 PM Full Code: Discussed Full Code 2021 1:00 AM 12/08/2021 4:13 PM Full Code: Discussed
--- OUTSIDE RECORDS SUMMARY | 2022-04-17 15:50 | XMS_ITS | Continuity of Care Document ---
:1940 Author Organization [facility] Care Team Providers Name Role Phone DOD-NE Unavailable Unavailable Problems Combined list of problems from Department of Defense and Veterans Affairs facilities. It does not include entries that were removed or entered in error. Problem Status Onset Problem Type Date of Comments Source Date Resolution CITC Primary Active Condition Feb 25, [facility] Entered [facility] By: FRANCK ROBINS Comment: [facility] Care Primary: Hiatal hernia Active Condition [facility] Impaired [facility] Stricture of Active Condition [place] [facility] es[facility] Immunizations Combined list of available immunizations from the Department of Defense and Veterans Affairs facilities. Immunization Series Date Administered Site Reaction Lot CVX Drug St atus Comments Source Given By Number Code Gate Guard COVID-19 2 complet PFR; [place] (PFIZER), 2020 ed [id number]; [place] [facility] MRNA, LNP-S, 02 HCS PF, 30 1 MCG/0.3 ML DOSE COVID-19 1 complet PFR; [place] (PFIZER), 2020 ed [id number]; [place] [facility] MRNA, LNP-S, 02 HCS PF, 30 1 MCG/0.3 ML DOSE Encounters Combined list of: 1) Encounters from Department of Veterans Affairs facilities going back up to the last 18 months, not all VA inpatient encounters are included; 2) Encounters from the Department of Defense facilities going back up to 280 months. Location Location Encounter Encounter Reason Attending ADM DC Stat us Disposition Source Details Type Number For Provider Date Date Visit Outpatient [id number] [place] En[place] [id number] /[id number] [facility] Outpatient [id number] Sandhya CASON 05/31 [place] [facility] [id number] [facility] [id number] Sandhya CASON 12/03 [place] Encounter [id number] ERR [facility] Outpatient [id number] Sandhya CASON 12/10 [place] Encounter [id number] ERRY [facility] Outpatient [id number] ARNEL REYES 02/10 [place] En[place] [id number] RE[facility] Outpatient [id number] 02/28 [place] Encounter [id number] [facility] Outpatient [id number] SANDY,SA 04/14 [place] En[place] [id number] RA R [facility] Outpatient [id number] SANDY,SA 04/16 [place] Encounter [id number] /2021 [facility] Social History Combined list of available smoking, [...] 05/30/2022 AMBULATORY - NONE AMBULATORY - NONE [facility]
--- OUTSIDE RECORDS SUMMARY | 2022-04-17 15:51 | XMS_ITS | Encounter Summary ---
:1940 Author Organization [facility] Address [address] [place] [address] Care Team Providers Name Role Phone Unavailable Primary Care Provider Unavailable Reason for Visit MRI/CAT/PET Scan (Routine) - Modified Order Specialty Diagnoses / Procedures Referred By Contact Refer red To Contact Radiology Diagnoses Empyema Pleural (HCC) Maria G Adame P.A.-C., [facility] Procedures CT Chest without IV Contrast CT Chest with IV Contrast [facility] [address] [place] [phone] Referral ID Status Reason Start Date Expiration Date Visits V isits Requested Authorized [id number] Modified 12/07/2021 12/07/2022 1 1 Order Encounter Details Date Type Department Care Team Description 12/28/2021 Hospital Encounter Department of Maria G Adame, Empyem a Pleural (HCC) Radiology, [facility] [place], [facility], in [address] [place] [address] [place] [address] [place], [place] [phone] (Work) [phone] Social History Tobacco Use Types Packs/Day Years [...] or relatives? How often do you attend buddhist or bahai More than 4 time s per year 04/11/2022 services? Do you belong to any clubs or organizations Yes 04/11/2022 such as buddhist groups, unions, fraternal or athletic groups, or [...]
--- OUTSIDE RECORDS SUMMARY | 2022-04-17 15:51 | XMS_ITS | Encounter Summary ---
:1940 Author Organization [facility] Address [address] [place] [address] Care Team Providers Name Role Phone Unavailable Primary Care Provider Unavailable Reason for Referral Outpatient (Routine) - Closed Specialty Diagnoses / Procedures Referred By Contact Refer red To Contact Pulmonary Medicine Peng Tinajero M.D. [address] [address] Referral ID Status Reason Start Date Expiration Date Visits Requ ested Visits Authorized [id number] Closed 12/28/2021 12/28/2022 1 1 Scheduling Instructions F/U pleural clinic. I am happy to see bu t if this doesn't work out he can be seen in pleural clinic. Reason for Visit Outpatient (Routine) - Closed Specialty Diagnoses / Procedures Referred By Contact Refer red To Contact Pulmonary Medicine Peng Tinajero M.D. [address] [address] Referral ID Status Reason Start Date Expiration Date Visits Requ ested Visits Authorized [id number] Closed 12/28/2021 12/28/2022 1 1 Encounter Details Date Type Department Care Team Description 03/02/2022 Hospital Encounter Division of Jessa Heredia Pleural Pulmonary Medicine Trinh Mendes (Primary Dx) in [address] [place] [address] [place], [place] [phone] (Work) [phone] Social History Tobacco Use Types Packs/Day Years [...] often do you attend jehovah's witness or yarsani More than 4 time s [...] documented in this encounter Plan of Treatment Scheduled Referrals Name Type Priority Associated Order Schedule Diagnoses Pulmonary Medicine Outpatient Referral Routine On ce for 1 office visit Occurrences sta rting (clinic) 03/02/2022 unti l 03/02/2022 documented as of this encounter Visit Diagnoses Diagnosis Effusion Pleural - Primary documented in this encounter
--- OUTSIDE RECORDS SUMMARY | 2022-04-17 15:51 | XMS_ITS | Encounter Summary ---
:1940 Author Organization [facility] Address [address] [place] [address] Care Team Providers Name Role Phone Unavailable Primary Care Provider Unavailable Reason for Referral Outpatient (Routine) - Closed Specialty Diagnoses / Procedures Referred By Contact Refer red To Contact Pulmonary Medicine Peng Tinajero M.D. [facility] [address] [place] [address] Referral ID Status Reason Start Date Expiration Date Visits Requ ested Visits Authorized [id number] Closed 12/28/2021 12/28/2022 1 1 Scheduling Instructions F/U pleural clinic. I am happy to see bu t if this doesn't work out he can be seen in pleural clinic. RI/CAT/PET Scan (Routine) - Closed Specialty Diagnoses / Procedures Referred By Contact Refer red To Contact Radiology Diagnoses Pneumonitis Due To Inhalation Of Food And Vomit (HCC) Peng Tinajero M.D. [facility] Procedures CT Chest without IV Contrast IN CT [facility] [address] [place], [place] [address] Referral ID Status Reason Start Date Expiration Date Visits Requ ested Visits Authorized [id number] Closed 12/28/2021 12/28/2022 1 1 Encounter Details Date Type Department Care Team Description 12/28/2021 Orders Only Division of Pulmonary Peng Tinajero, Pneum onitis Due To Medicine in [place] [facility] [place] 200 [facility] Vomit (HCC) 200 [place] [phone] Social History Tobacco Use Types Packs/Day Years [...] or relatives? How often do you attend mandaeism or latter day More than 4 time s per year 04/11/2022 services? Do you belong to any clubs or organizations Yes 04/11/2022 such as mandaeism groups, unions, fraternal or athletic groups, or [...] as of this encounter Plan of Treatment Scheduled Referrals Name Type Priority Associated Diagnoses Order S [facility] Pulmonary Medicine Outpatient Referral Routine Ex [...] . Multiple findings are otherwise stable. Peng P Lior M.D. IMG CT PROCEDURES documented in this encounter Visit Diagnoses Diagnosis Pneumonitis Due To Inhalation Of Food An d Vomit (HCC) Pneumonitis Due To Inhalation Of Food An d Vomit (HCC) documented in this encounter
--- OUTSIDE RECORDS SUMMARY | 2022-04-17 15:51 | XMS_ITS | Encounter Summary ---
:1940 Author Organization [facility] Address [address] [place] [address] Care Team Providers Name Role Phone Unavailable Primary Care Provider Unavailable Reason for Visit Auth/Cert Specialty Diagnoses / Procedures Referred By Contact Refer red To Contact Diagnoses Hematemesis Hematemesis on Coumadin Procedures DIR Referral ID Status Reason Start Date Expiration Date Visits Requ ested Visits Authorized [id number] 1 1 Encounter Details Date Type Department Care Team Description 12/09/2021 - Hospital Encounter [facility] Kong Coates M.D. [address] [place] [address] Hematemesis 12/11/2021 [facility] [address] [place] [address] (Primary Dx) [facility], Fourth Floor [address] [place] [phone] Social History Tobacco Use Types Packs/Day Years [...] How often do you attend yarsani or islam More than 4 time s [...] care provider on file. Discharge Provider Team: [facility] Internal Medicine ([facility]) RST Medicine 8 ([facility]) Primary Care Provider Phone Number: None Primary Care Provider Fax Number: None Other Providers: Nargis Goldstein APRN, C.N.P., M.S.N. 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 Pulmonary Medicine For appointment details refer to your Patient Appointment Guide. TEST RESULTS PENDING AT DISCHARGE Pending Labs None DETAILS OF HOSPITAL STAY REASON FOR ADMISSION Hematemesis HOSPITAL COURSE Mr. 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 Is very active. He has a [...] 1967, incl last a Heller's procedure at [facility] 11/2020. On 12/09, he presented via EMS to [facility] Emergency Department with concerns of [...] mg IV pantoprazole and directly admitted to [facility],Medicine 8 service for ongoing management. On [...] Mr. David Castro today and provided counseling szgu-cv-[id number] at bedside. I personally spent over half of a total 35 minutes in counseling and discussion with the patient and in coordination of care as described above to facilitate the hospital discharge. Discharge instructions were provided to the patient and caregiver(s). documented in this encounter Discharge Instructions Discharge InstructionsBernice Pisano - 12/10/2021 7:26 AM CDT You were discharged from the [facility] Medicine 8 ([facility]) Service. Please identify this service name if you call with questions after hospitalization. AppointmentsBernice Pisano - 12/10/2021 11:04 AM CDT Take a copy of this after visit summary to your appointment(s). DIVINA Van December 14, 2021 - Monday --10:05 AM - Hospital Follow-Up with Dr. Harish Silver, at [facility] Address: [address] [place] [address] [place] [id number] If you have any questions, concerns, or need to reschedule please call [phone] documented in this encounter Medications at Time [...] about patient's nutritional care please contact pager [phone] on weekdays or [phone] on weekends/holidays. Nicole Mendez APRN, C.N.P., D.N.P. [...] has been staffed with Dr. Kennedy, Nephrology human resources consultant. For questions or concerns, please contact Neph A ESRD pager at [phone]. Sherri Alarcon R.R.T., L.R.T. - 12/11/2021 1:41 [...] male who was recently discharged from our [address] service following an admission for a [...] team's plan of care. Counseling was provided wzym-us-huav at bedside regarding the plan of care [...] pending hospital course Kasia Ridley PharmCodie, R.Ph. [phone] Maria G Adame P.A.-C., M.S. - 12/10/2021 7:10 AM CDT T Medicine 8 ([facility]) Progress Note SUBJECTIVE Interval history: Patient [...] / PLAN Mr. Castro is hospitalized on [place] [id number] ([facility]) for evaluation and management of Hematemesis. 81 year old male admitted for weakness and coffee-ground emesis. Recently discharged kyle [facility] after 6day admission for right pleural [...] 1967, incl last a Heller's procedure at [facility] 11/2020), HTN, and ELENI on CPAP. EMS was called and he was taken to [facility] ED. Apparently EMS noted ice cream container worth of reddish vomit that they thought was blood. SBP was 90s but improved to 120s with 1.5 L IVF. He was not transfused at the OSH ED as Hb was 12.2. He was given Kcentra (INR was 1.4) and 40 mg IV pantoprazole and directly admitted to [facility]. #1 Weakness, generalized #2 Dark colored [...] care was discussed with Dr. Lozoya, HIM human resources consultant. Counseling was provided qkdx-je-asar at bedside regarding the plan of care as stated above. I personally spent over half of a total 35 minutes in counseling and coordination of care as documented above. MariaG Adame P.A.-C., M.S. Medicine 9 - [phone] Addendum: EGD showed stasis ulcer, and brownish [...] Status Comment 12/09/2021 2:28 PM Per 12/08 [facility] discharge AVS Taking? Last Dose Informant Start [...] M.B., Ch.B. - 12/09/2021 7:19 PM CDT [facility] Medicine 8 ([facility]) Admission Note SUBJECTIVE CHIEF COMPLAINT Coffee ground emesis x6 last night HISTORY OF PRESENT ILLNESS Mr. David Castro is a 81 y.o. male who was dismissed from [facility] 8 only yesterday having been admitted for [...] 1967, incl last a Heller's procedure at [facility] 11/2020), HTN, and ELENI on CPAP. [...] called EMS and he was taken to [facility] ED. Apparently EMS did take note [...] is not in the electronic chart. No extra-NETWORK ENGINEERING ADVISOR infectious source was found and he has had no further NETWORK ENGINEERING ADVISOR infection. 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 -NPO at [place] in case of EGD in am. Tubes/lines: PIV x2 ordered. VTE prophylaxis: SCD only given bleeding. Code status: Full Code, discussed. Baseline Mobility: BMAT Level 4 (Able to stand and walk) Disposition: Home Counseling was provided vaul-rx-zshy at bedside regarding the plan of care [...] was reviewed with Dr. Kennedy, Nephrology A human resources consultant For questions or concerns, please page the Nephrology A CARPENTRY TEACHER/PA pager ([phone]). Associated attestation - Yamielth Kennedy M.D., Ph.D. - 12/10/2021 6:16 PM [...] transportation. Education on diet recommendations provided by supervisor grinding. VSS. Belongings sent with patient. Problem: PAIN [...] Mr. 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 Is very active. He has a [...] 1967, incl last a Heller's procedure at [facility] 11/2020. On 12/09, he presented via EMS to [facility] Emergency Department with concerns of [...] mg IV pantoprazole and directly admitted to [facility],Medicine 8 service for ongoing management. On [...] 12/11/2021 DTL Black/ mL/min/BSA 9:18 AM CDT [place] Comment: ----ADDITIONAL INFORMATION---- Estimated GFR calculated using [...] CDT AM CDT Maria G Adame P.A.-C. M.S. LAB BLOOD ADD-ON Performing Organization Address City/State/[facility] Code Phon e Number [facility] ER LABORATORIES - [address] [place] [address] [facility] [place] [address] Laboratories-[facility] 200 [facility] (ABNORMAL) CBC without Differential (12/11/2021 7:30 AM CDT) [facility] gist Method Time Signature Hemoglobin 8.8 [...] M.S. LAB BLOOD ADD-ON Performing Organization Address City/[facility] Code Phon e Number [facility] ER LABORATORIES - 200 [place], [place] [address] [place] [address] Laboratories-[address] (ABNORMAL) Hemoglobin (12/10/2021 4:17 PM CDT) P athologist Signature Hemoglobin 10.7 (L) 13.2 - 16.6 12/10/2021 DTL g/dL 5:00 PM CDT Specimen Anatomical Collection Method Collection Time Receive d Time (Source) Location / / Volume Laterality Blood (Blood, 12/10/2021 4:17 PM 12/11/19 4:49 Venous) CDT PM CDT Maria G Adame P.A.-C., M.S. LAB BLOOD ADD-ON Performing Organization Address [facility] Phon e Number [facility] ER LABORATORIES - [address] [address] Laboratories[address] Upper GI Endoscopy (12/10/2021 11:53 AM CDT) Specimen (Source) Anatomical Collection Method Collection Time Re ceived Time Location / / Volume Laterality 12/10/2021 11:53 AM CDT Impressions [facility] - 12/10/2021 4:10 PM CDT Post-op Diagnoses: [...] bulb. ? - No specimens collected. Narrative [facility] - 12/10/2021 4:10 PM CDT Saul 6 [...] No immedia te complications. 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 LAB BLOOD ADD-ON Performing Organization Address [facility] Phon e Number [facility] ER LABORATORIES - [address] (ABNORMAL) GGT (Gamma-Glutamyltransferase) (12/10/2021 7:33 AM CDT) Component Value Ref Test Analysis Performed At [facility] gist Range Method Time Signature Gamma 121 (H) 8 - 61 12/10/2021 DTL Glutamyltransferase U/L 1:14 PM CDT (GGT), S Specimen Anatomical Collection Method Collection Time Receive d Time (Source) Location / / Volume Laterality Blood (Blood, 12/10/2021 7:33 AM 12/11/19 Venous) CDT 12:43 PM CDT Maria G Adame P.A.-C., M.S. LAB BLOOD ADD-ON Performing Organization Address [facility] Phon e Number [facility] ER LABORATORIES - 200 [place] [phone] [address] Phosphorus Inorganic (12/10/2021 7:33 AM CDT) P athologist Signature Phosphorus 3.4 2.5 - 4.5 12/10/2021 DTL (Inorganic), S mg/dL 9:20 AM CDT Specimen Anatomical Collection Method Collection Time Receive d Time (Source) Location / / Volume Laterality Blood (Blood, 12/10/2021 7:33 AM 12/11/19 8:15 Venous) CDT AM CDT Maria G Adame P.A.-C., M.S. LAB BLOOD ADD-ON Performing Organization Address City/[facility] Phon e Number [facility] - [address] (ABNORMAL) CBC without Differential (12/10/2021 7:33 AM CDT) [facility] gist Method Time Signature Hemoglobin 10.7 (L) [...] Ch.B. LAB BLOOD ADD-ON Performing Organization Address City/State/[facility] Code Phon e Number [facility] ER LABORATORIES - [address] [place], [place] [address] [facility] [place] [address] Laboratories-[facility] 200 [facility] (ABNORMAL) Basic Metabolic Panel (12/10/2021 7:33 AM [...] 12/10/2021 DTL Black/ mL/min/BSA 8:31 AM CDT [place] Comment: ----ADDITIONAL INFORMATION---- Estimated GFR calculated using [...] City/State/ZIP Code Phon e Number [facility] ER LABORATORIES - [address] [place] [address] [facility] [place] [address] Laboratories-[facility] 200 [facility] SARS Coronavirus 2, PCR Rapid, V (12/09/2021 7:48 PM CDT) [facility] Method Time Signature SARS CoV-2, Undetected Undetected 12/09/2021 STMA PCR, Rapid, V 8:26 PM CDT Comment: ----ADDITIONAL INFORMATION---- This RT-PCR test was performed using the Penny SARS-CoV-2 and Influenza A/B Reagent assay from [employer], which has received Emergency Use Authori zation(EUA) by the U.S. Food and Drug Administration . Fact sheets for this Emergency Use Autho rization (EUA) assay can be found at the following link s: For Healthcare Providers: https://www.fda.gov/media/213407/downloa d For Patients: https://www.fda.gov/media/870560/downloa d SARS Coronavirus 2, Source, Rapid Swab, Nasopharynx 12/09/2021 8:00 PM CDT [facility] Specimen Anatomical Collection Method Collection Time Receive d Time (Source) Location / / Volume Laterality Varies 12/09/2021 7:48 PM 2 7:59 CDT PM CDT Marlyn Benson P.A.-C. LAB MICROBIOLOGY - GENERAL ORDERABLES Performing Organization Address City/[facility]/ZIP Code Phon e Number [facility] ER LABORATORIES - [address] [place], [place] [address] [facility] [place] [address] Laboratories-[facility] 200 [facility] ECG 12 Lead (12/09/2021 3:35 PM CDT) athologist Signature Ventricular Rate 88 BPM MUSE ECG/Min QRSD Interval 124 ms MUSE QT Interval 398 ms MUSE QTC Interval 481 ms MUSE R [place] 0 degrees MUSE T Wave [place] -1 degrees MUSE Specimen Anatomical Collection Method [...] Sanchez, Ch.B. ECG ORDERABLES Performing Organization Address City/[facility]/ZIP Code Phon e Number MUSE MUSE NA Type and Screen (with reflex Antibody ID) (12/09/2021 3:15 PM CDT) Patholo gist Method Time Signature ABORh O Pos Not 12/09/2021 STRM applicable 4:06 PM CDT Antibody Negative Negative 12/09/2021 STRM Screen 4:17 PM CDT Type & Screen 12/12/2021 12/09/2021 STRM Expiration 23:59 4:06 PM CDT Testing [place] DEFAULT 12/09/2021 STRM Location 3:24 PM CDT Specimen Anatomical Collection Method Collection Time Receive d Time (Source) Location / / Volume Laterality Blood (Blood, 12/09/2021 3:15 PM 12/10/19 3:24 Venous) CDT PM CDT Lorne Sanchez, Ch.B. LAB BLOOD BANK TEST ORDERABL ES Performing Organization Address City/State/ZIP Code Phon e Number [facility] ER LABORATORIES - [address] [place], [place] [address] [facility] [place] [place] [address] Laboratories-[facility] [address] (ABNORMAL) Basic Metabolic Panel (12/09/2021 3:14 PM [...] 12/09/2021 DTL Black/ mL/min/BSA 4:43 PM CDT [place] Comment: ----ADDITIONAL INFORMATION---- Estimated GFR calculated using [...] Ch.B. LAB BLOOD ADD-ON Performing Organization Address City/State/[facility] Code Phon e Number [facility] ER LABORATORIES - [address] [place] [address] [facility] [place] [address] Laboratories-[facility] 200 [facility] (ABNORMAL) CBC without Differential (12/09/2021 3:14 PM CDT) [facility] gist Method Time Signature Hemoglobin 11.5 [...] 3:41 Venous) CDT PM CDT Lorne Sanchez, B. LAB BLOOD ADD-ON Performing Organization Address City/State/ZIP Code Phon e Number [facility] ER LABORATORIES - [address] [place], [place] [address] [facility] [place] [place] [address] Laboratories-[facility] [address] documented in this encounter Visit Diagnoses Diagnosis Hematemesis - Primary Atrial Fibrillation Paroxysmal (HCC) Medical Doctor Md/Medical Director (Current) Anticoagulant Treatm ent Hypoalbuminemia Dialysis Peritoneal [...] 080 3 (Given - Provider: Janeth Nicole R.N.) 0958 (Given - Provider: Janeth Nicole R.N.) 100 mg, oral, Daily, First dose [...] (CANCELED) 2028 (Given - Provider: Cecelia Winkler RBaileyNBailey) 0803 (Given - Provider: Janeth Nicole R.N.)1412 (Given - Provider: Janeth Nicole R.N.) 10 mg, oral, 3 times daily, First dose on Mon12/09/21 at 2100 isosorbide dinitrate tablet 2.5 mg (ISORDIL) 0548 (Given - Provider: Suzy AroraNBailey)1118 (Not Given - Provider: Janeth Nicole R.N. - Reason: Patient not available)1614 (Given - Provider: Janeth Nicole R.N.) 0614 (Given - Provider: Randee Gandhi RBaileyNBailey)1114 (Given - Provider: Janeth Nicole R.N.) 2.5 mg, oral, 3 times daily before meals , First dose on Mon12/10/21 at 0700, HOLD for SBP <100 metoprolol tartrate tablet 25 mg (LOPRESSOR) 2028 (Giv en - Provider: Cecelia Winkler RBaileyNBailey) 0803 (Given - Provider: Janeth Nicole R.N.)1953 (Given - Provider: Suzy QuintanaNBailey) 0958 (Given - Provider: Janeth Nicole R.N.) [...] (PROTONIX) 1614 (Given - Provider: Janeth Nicole R.N.) 0615 [...] Winkler R.N.) 10 mEq, oral, Once, On Mon12/09/21 at 20 45, For 1 dose, Swallow [...] 2120 (New Bag - Provider: Cecelia Winkler R.N.) [...]
--- OUTSIDE RECORDS SUMMARY | 2022-04-17 15:51 | XMS_ITS | Encounter Summary ---
:1940 Author Organization [facility] Address [address] [place] [address] Care Team Providers Name Role Phone Unavailable Primary Care Provider Unavailable Reason for Visit Reason Comments Med Refill Encounter Details Date Type Department Care Team Description 01/26/2022 Refill [facility], Estela Cummins, Med Refill [facility], [facility] [address] [place] [address] [place] [address] [place] [address] [phone] Social History Tobacco Use Types Packs/Day Years [...] or relatives? How often do you attend yazdanism or taoist More than 4 time s per year 04/11/2022 services? Do you belong to any clubs or organizations Yes 04/11/2022 such as yazdanism groups, unions, fraternal or athletic groups, or [...]
--- OUTSIDE RECORDS SUMMARY | 2022-04-17 15:51 | XMS_ITS | Encounter Summary ---
:1940 Author Organization [facility] Address [address] [place] [address] Care Team Providers Name Role Phone Unavailable Primary Care Provider Unavailable Reason for Referral Outpatient (Routine) - Closed Specialty Diagnoses / Procedures Referred By Contact Refer red To Contact Diagnoses Effusion Pericardial Acute (HCC) Jessa Heredia M.D. [facility] Procedures Echo Transthoracic (TTE) [address] [place], [place] [address] Referral ID Status Reason Start Date Expiration Date Visits Requ ested Visits Authorized [id number] Closed 03/02/2022 03/02/2023 1 1 Reason for Visit Outpatient (Routine) - Closed Specialty Diagnoses / Procedures Referred By Contact Refer red To Contact Diagnoses Effusion Pericardial Acute (HCC) Jessa Heredia M.D. [facility] Procedures Echo Transthoracic (TTE) [address] [place], [place] [address] Referral ID Status Reason Start Date Expiration Date Visits Requ ested Visits Authorized [id number] Closed 03/02/2022 03/02/2023 1 1 Encounter Details Date Type Department Care Team Description 04/05/2022 Hospital Department of Jessa Heredia Effusion Encounter Cardiovascular Trinh Mendes Pericardial Acute Diseases in [place], [facility] [address] [facility] ([facility]) [place], [place] [address] [facility] [address] [place], [place] [phone] [address] (Work) [phone] Social History Tobacco Use Types Packs/Day Years [...] How often do you attend scientologist or jewish More than 4 time s [...] place to sleep or slept in a long term (including now)? Education Answer Date Recorded What [...] ECHO DOPPLER COLOR (04/05/2022 3:55 PM CDT) [facility] gist Method Time Signature Ejection Fraction 66 [...] was performed but not reported based on electronic news gathering editor's judgment. No regional wall motion abnormalities. Abnormal [...]
--- OUTSIDE RECORDS SUMMARY | 2022-04-17 15:51 | XMS_ITS ---
:1940 Author Organization [facility] Address [address] [place] [address] Care Team Providers Name Role Phone Unavailable Primary Care Provider Unavailable Procedures Procedure Name Priority Date/Time Associated Comments Diagnosis OUTSIDE CT BODY Routine 04/13/2022 Results for 10:35 PM CDT this procedure are in the results section. (TTE) 2D ECHO Routine 04/05/2022 3:55 Effusion Results for DOPPLER COLOR PM CDT Pericardial Acute this proc edure ([facility]) are in the results section. ECG Routine 04/05/2022 2:01 Effusion Results for PM CDT Pericardial Acute this proce dure ([facility]) are in the results section. HOLTER MONITOR - IN Routine 04/05/2022 6:00 Effusion Resul ts for CLINIC FANCY NEEDLEWORKER AM CDT Pericardial Acute this pro cedure ([facility]) are in the Chronic Systolic results (Congestive) Heart section. Failure (HCC) Atrial Fibrillation Paroxysmal ([facility]) Bundle Branch Block Left Dialysis Peritoneal Status ([facility]) SEDIMENTATION RATE, Routine 04/04/2022 Effusion Results for B 11:36 AM CDT Pericardial Acute this proce dure ([facility]) are in the Chronic Systolic results (Congestive) Heart section. Failure (HCC) Atrial Fibrillation Paroxysmal ([facility]) Bundle Branch Block Left Dialysis Peritoneal Status ([facility]) CBC WITH Routine 04/04/2022 Effusion Results for DIFFERENTIAL, B 11:36 AM CDT Pericardial Acute this pr ocedure ([facility]) are in the Chronic Systolic results (Congestive) Heart section. Failure (HCC) Atrial Fibrillation Paroxysmal (HCC) Bundle Branch Block Left Dialysis Peritoneal Status ([facility]) C-REACTIVE PROTEIN Routine 04/04/2022 Effusion Results f or (CRP), S/P 11:35 AM CDT Pericardial Acute this proce dure ([facility]) are in the Chronic Systolic results (Congestive) [...] Active mg tablet and 2 mg on ///Sat. metoprolol tartrate Take 25 mg by 0 [...] and dinner. Active Problems Problem Noted Date Snf (Current) Anticoagulant Treatment 12/09/2021 Hypertension And End [...] or relatives? How often do you attend adventist or amish More than 4 time s per year 04/11/2022 services? Do you belong to any clubs or organizations Yes 04/11/2022 such as adventist groups, unions, fraternal or athletic groups, or [...] 26.47 03/02/2022 11:[address] ABDOMEN PELVIS WO CON-Outside CT [...] Code Phon e Number IIMS IIMS NA (TTE) 2D ECHO DOPPLER COLOR (04/05/2022 3:55 PM CDT) [facility] Method Time Signature Ejection Fraction 66 [...] was performed but not reported based on service aide's judgment. No regional wall motion abnormalities. Abnormal [...] Signature Ventricular Rate 62 BPM MUSE ECG/Min [place] Interval 206 ms MUSE QRSD Interval 128 ms MUSE QT Interval 446 ms MUSE QTC Interval 452 ms MUSE P [place] 10 degrees MUSE R [place] 6 degrees MUSE T Wave [place] 26 degrees MUSE Specimen Anatomical Collection Method [...] MUSE NA HOLTER MONITOR - IN CLINIC FANCY NEEDLEWORKER (04/05/2022 6:00 AM CDT) P athologist Signature [...] Duration 6h 30m duration INFOBIONIC MOME AF [place] 29 percent INFOBIONIC MOME Longest AF 7h [...] seen singly at and around these times. Urology Physician: Marilou Zimmer / Violet Cotton Fellow: Clemente [...] seen singly at and around these times. Urology Physician: Marilou Zimmer / Violet Cotton Fellow: Clemente Dos Santos MD Mehrdad Lazcano APRN, C.N.P. CV CARDIAC SERVICES PRO CEDURES Performing Organization Address City/State/ZIP Code Phon e Number INFOBIONIC MOME INFOBIONIC MOME NA (ABNORMAL) Sedimentation Rate (04/04/2022 11:36 AM CDT) Valentin Uzhun Method Time Signature Sedimentation 61 (H) 3 - 28 04/04/2022 DTL Rate, B mm/h 12:50 PM CDT Specimen Anatomical Collection Method Collection Time Receive d Time (Source) Location / / Volume Laterality Blood (Blood, 04/04/2022 11:36 04/04/2022 Venous) AM CDT 11:56 AM CDT Mehrdad Lazcano APRN, C.N.P. LAB BLOOD ADD-ON Performing Organization Address City/State/ZIP Code Phon e Number [facility] - [address] [place], [place] [address] [facility] [place] [address] Laboratories-[facility] [address] (ABNORMAL) CBC with Differential, Blood (04/04/2022 11:36 AM CDT) Valentin Uzhun Method Time Signature Hemoglobin 11.7 (L) 13.2 [...] Organization Address City/State/ZIP Code Phon e Number [facility] - [address] [place], [place] [address] [facility] [place] [address] Laboratories-[facility] [address] (ABNORMAL) NT-Pro B-Type Natriuretic Peptide (BNP) (04/04/2022 11:35 AM CDT) athologist [facility] NT-Pro BNP 2314 (H) <=540 pg/mL 04/04/2022 [...] C.N.P. LAB BLOOD ADD-ON Performing Organization Address City/[facility] Phon e Number [facility] - [address] (ABNORMAL) CRP (C-Reactive Protein) (04/04/2022 11:35 AM CDT) athologist [facility] C-Reactive 16.2 (H) <=8.0 mg/L 04/04/2022 DT Protein (CRP), 1:55 PM CDT S Specimen Anatomical Collection Method Collection Time Receive d Time (Source) Location / / Volume Laterality Blood (Blood, 04/04/2022 11:35 04/04/2022 Venous) AM CDT 12:06 PM CDT Mehrdad Lazcano APRN, C.N.P. LAB BLOOD ADD-ON Performing Organization Address City/[facility] Phon e Number [facility] - [address] (ABNORMAL) Comprehensive Metabolic Panel (04/04/2022 11:35 [...] 04/04/2022 DTL Black/ mL/min/BSA 1:48 PM CDT Malawian Comment: ----ADDITIONAL INFORMATION---- Estimated [...] Organization Address City/State/ZIP Code Phon e Number [facility] - [address] [place], [place] [address] [facility] [place] [address] Laboratories-[facility] [address] Chest [...]
--- OUTSIDE RECORDS SUMMARY | 2022-04-17 15:51 | XMS_ITS | Encounter Summary ---
:1940 Author Organization [facility] Address [address] [place] [address] Care Team Providers Name Role Phone Unavailable Primary Care Provider Unavailable Reason for Referral Outpatient (Routine) - Closed Specialty Diagnoses / Procedures Referred By Contact Refer red To Contact Diagnoses Effusion Pericardial Acute (HCC) Jessa Heredia M.D. [facility] [facility] Procedures Echo Transthoracic (TTE) [address] [place] [address] Referral ID Status Reason Start Date Expiration Date Visits Requ ested Visits Authorized [id number] Closed 03/02/2022 03/02/2023 1 1 Outpatient (Routine) - Closed Specialty Diagnoses / Procedures Referred By Contact Refer red To Contact Diagnoses Effusion Pericardial Acute (HCC) Jessa Heredia M.D. [facility] [facility] Procedures ECG 12 Lead [address] [place] [phone] Referral ID Status Reason Start Date Expiration Date Visits Requ ested Visits Authorized [id number] Closed 03/02/2022 03/02/2023 1 1 Outpatient (Routine) - Closed Specialty Diagnoses / Procedures Referred By Contact Refer red To Contact Cardiovascular Diseases / Diagnoses Effusion Pericardial Acute (HCC) Jessa Heredia [facility] Cardiovascular Disease MCodie [address] [place] [address] Referral ID Status Reason Start Date Expiration Date Visits Requ ested Visits Authorized [id number] Closed 03/02/2022 03/02/2023 1 1 Encounter Details Date Type Department Care Team Description 03/02/2022 Orders Only Division of Pulmonary Jessa Heredia, Effusion Pericardial Medicine in M.DBailey Acute (HCC) (Primary [place], [place] [address]x) [address] [place] [phone] Social History Tobacco Use Types Packs/Day Years [...] How often do you attend adventist or shinto More than 4 time s per year [...] place to sleep or slept in a usp (including now)? Education Answer Date Recorded What [...] General cardiology Referral Pericardial Acute consult (clinic) ([facility]) (Approximat e), Expires: 06/02/2023 documented as of this encounter Results (TTE) 2D ECHO DOPPLER COLOR (04/05/2022 3:55 PM CDT) [facility] Method Time Signature Ejection Fraction 66 [...] was performed but not reported based on associate property manager's judgment. No regional wall motion abnormalities. Abnormal [...] Signature Ventricular Rate 62 BPM MUSE ECG/Min [place] Interval 206 ms MUSE QRSD Interval 128 ms MUSE QT Interval 446 ms MUSE QTC Interval 452 ms MUSE P [place] 10 degrees MUSE R [place] 6 degrees MUSE T Wave [place] 26 degrees MUSE Specimen Anatomical Collection Method [...]
--- OUTSIDE RECORDS SUMMARY | 2022-04-17 15:51 | XMS_ITS | Encounter Summary ---
:1940 Author Organization [facility] Address [address] [place] [address] Care Team Providers Name Role Phone Unavailable Primary Care Provider Unavailable Reason for Referral Outpatient (Routine) - Authorized Specialty Diagnoses / Referred By Contact Referred To Procedures Contact Gastroenterology and Diagnoses Vidhya Bergeron [facility] Hepatology Pablo QUINTANILLA.N.Arvin, M.S.N. [address] [place] [phone] Referral ID Status Reason Start Date Expiration Date Visits V isits Requested Authorized [id number] Authorized 12/13/2021 12/13/2022 1 1 Encounter Details Date Type Department Care Team Description 12/13/2021 Clinical Communication RST HIM Vidhya Goldstein [address] [facility] DWIGHT Guevara C.N.PBailey, [place], [place] M.S.N. [phone] [place] [phone] Social History Tobacco Use Types Packs/Day Years [...] or relatives? How often do you attend yazidism or temple More than 4 time s per year 04/11/2022 services? Do you belong to any clubs or organizations Yes 04/11/2022 such as yazidism groups, unions, fraCloudEndure or athletic groups, or school groups? How [...]
--- OUTSIDE RECORDS SUMMARY | 2022-04-17 15:51 | XMS_ITS | Encounter Summary ---
:1940 Author Organization [facility] Address [address] [place] [address] Care Team Providers Name Role Phone Unavailable Primary Care Provider Unavailable Reason for Referral Outpatient (Routine) - Closed Specialty Diagnoses / Procedures Referred By Contact Refer red To Contact Pulmonary Medicine Diagnoses Empyema Pleural (HCC) Maria G Adame [facility] Estela, M.S. [address] [place] [phone] Referral ID Status Reason Start Date Expiration Date Visits Requ ested Visits Authorized [id number] Closed 12/07/2021 12/07/2022 1 1 Reason for Visit Outpatient (Routine) - Closed Specialty Diagnoses / Procedures Referred By Contact Refer red To Contact Pulmonary Medicine Diagnoses Empyema [facility]) [facility] [address] [place] [phone] Referral ID Status Reason Start Date Expiration Date Visits Requ ested Visits Authorized [id number] Closed 12/07/2021 12/07/2022 1 1 Encounter Details Date Type Department Care Team Description 12/28/2021 Hospital Encounter Division of Lior, Peng Emerson Empyema Pleural Pulmonary Medicine [facility] ([facility]) in [place], [address] [place], [place] [address] [place] [phone] [place], [place] [phone] (Work) [phone] Social History Tobacco Use Types Packs/Day Years [...] How often do you attend jew or congregation More than 4 time s per year [...] He is a delightful 81-year-old man from [place], [place], who was recently hospitalized from 12/02 [...] have a follow-up CT scan done at [facility]. We discussed elevation of the head of the bed in detail, given his recurrent risk for aspiration pneumonia. He also is taking an antiacid pill and avoiding meals before he goes to bed. Given his achalasia, he is on a liquid diet. MARGIN CODE: E5, 50 minutes. Peng Tinajero M.D. CT CT Job ID: [id number] documented in this encounter Plan of Treatment Scheduled Referrals Name Type Priority Associated Order Schedule Diagnoses Pulmonary Medicine Outpatient Referral Routine Empyema Pleural Once for 1 - Pleural Disease (HCC) Occurrence s starting consult (clinic) 12/28/2021 until 12/28/2021 documented as of this encounter Visit Diagnoses Diagnosis Empyema Pleural (HCC) documented in this encounter
--- OUTSIDE RECORDS SUMMARY | 2022-04-17 15:51 | XMS_ITS | Encounter Summary ---
:1940 Author Organization [facility] Address [address] [place] [address] Care Team Providers Name Role Phone Unavailable Primary Care Provider Unavailable Encounter Details Date Type Department Care Team Description 12/27/2021 Clinical Communication Visit Review in [place], [place] [address] [place], [place] [phone] Social History Tobacco Use Types Packs/Day Years [...] How often do you attend adventist or cheondoism More than 4 time s [...] or slept in a prison (including now)? Education Answer Date Recorded What [...]
--- OUTSIDE RECORDS SUMMARY | 2022-04-17 15:51 | XMS_ITS | Encounter Summary ---
:1940 Author Organization [facility] Address [address] [place] [address] Care Team Providers Name Role Phone Unavailable Primary Care Provider Unavailable Reason for Visit Reason Comments Pre-visit Intake Encounter Details Date Type Department Care Team Description 04/12/2022 Clinical Communication Visit Review in Pr e-visit Intake [place], [place] [address] [place] [address] Social History Tobacco Use Types [...] How often do you attend jew or muslim More than 4 time s [...] place to sleep or slept in a long-term (including now)? Education Answer Date Recorded What [...]
--- OUTSIDE RECORDS SUMMARY | 2022-04-17 15:51 | XMS_ITS | Encounter Summary ---
:1940 Author Organization [facility] Address [address] [place] [address] Care Team Providers Name Role Phone Unavailable Primary Care Provider Unavailable Encounter Details Date Type Department Care Team Description 04/04/2022 Hospital Encounter Department of Mehrdad Lazcano Pericardial Acute (HCC); Laboratory Medicine M, AREA SECRETARY, C.N .P. 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); and Pathology, [address] Atrial Fibrillation Paroxysmal (HCC); [facility], [place], [place] Bundle B ranch Block Left; [place], [address] Dialysis Peritoneal Status (HCC) [place] [phone] [address] [facility] (Work) [place], [place] [phone] (Fax) [phone] Social History Tobacco Use Types Packs/Day Years [...] How often do you attend mosque or restorationist More than 4 time s per year 04/11/2022 services? Do you belong to any clubs or organizations Yes 04/11/2022 such as mosque groups, unions, fraternal or [...] (ABNORMAL) Sedimentation Rate (04/04/2022 11:36 AM CDT) [facility]KAM Method Time Signature Sedimentation 61 (H) 3 - 28 04/04/2022 DTL Rate, B mm/h 12:50 PM CDT Specimen Anatomical Collection Method Collection Time Receive d Time (Source) Location / / Volume Laterality Blood (Blood, 04/04/2022 11:36 04/04/2022 Venous) AM CDT 11:56 AM CDT Mehrdad Lazcano APRN, C.N.P. LAB BLOOD ADD-ON Performing Organization Address City/State/ZIP Code Phon e Number [facility] - [address] [place], [place] [address] [facility] [place] [address] Laboratories-[facility] [address] (ABNORMAL) CBC with Differential, Blood (04/04/2022 11:36 AM CDT) [facility] Method Time Signature Hemoglobin 11.7 (L) 13.2 [...] 04/04/2022 Venous) AM CDT 11:56 AM CDT Mherdad Lazcano APRN, C.N.P. LAB BLOOD ADD-ON Performing Organization Address City/State/ZIP Code Phon e Number [facility] - [address] [place], [place] [address] [facility] [place] [address] Laboratories-[facility] [address] (ABNORMAL) CRP (C-Reactive Protein) (04/04/2022 11:35 AM CDT) P athologist Signature C-Reactive 16.2 (H) <=8.0 mg/L 04/04/2022 DTL Protein (CRP), 1:55 PM CDT S Specimen Anatomical Collection Method Collection Time Receive d Time (Source) Location / / Volume Laterality Blood (Blood, 04/04/2022 11:35 04/04/2022 Venous) AM CDT 12:06 PM CDT Mehrdad Lazcano APRN, C.N.P. LAB BLOOD ADD-ON Performing Organization Address City/[facility] Phon e Number [facility] - [address] (ABNORMAL) NT-Pro B-Type Natriuretic Peptide (BNP) [...] C.N.P. LAB BLOOD ADD-ON Performing Organization Address City/[facility] Phon e Number [facility] - [address] (ABNORMAL) Comprehensive Metabolic Panel (04/04/2022 11:35 [...] 04/04/2022 DTL Black/ mL/min/BSA 1:48 PM CDT Bhutanese Comment: ----ADDITIONAL INFORMATION---- Estimated GFR calculated using [...] Organization Address City/State/ZIP Code Phon e Number [facility] - [address] [place], [place] [address] [facility] [place] [address] Laboratories-[facility] [address] documented in this encounter Visit Diagnoses Diagnosis Effusion Pericardial Acute (HCC) 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
--- OUTSIDE RECORDS SUMMARY | 2022-04-17 15:51 | XMS_ITS | Encounter Summary ---
:1940 Author Organization [facility] Address [address] [place] [address] Care Team Providers Name Role Phone Unavailable Primary Care Provider Unavailable Reason for Referral MRI/CAT/PET Scan (Routine) - Closed Specialty Diagnoses / Procedures Referred By Contact Refer red To Contact Radiology Diagnoses Pneumonitis Due To Inhalation Of Food And Vomit (HCC) Peng Tinajero M.D. [facility] Procedures CT Chest without IV Contrast [place] CT THORAX WO CNTRST [address] [place] [phone] Referral ID Status Reason Start Date Expiration Date Visits Requ ested Visits Authorized [id number] Closed 12/28/2021 12/28/2022 1 1 Reason for Visit MRI/CAT/PET Scan (Routine) - Closed Specialty Diagnoses / Procedures Referred By Contact Refer red To Contact Radiology Diagnoses Pneumonitis Due To Inhalation Of Food And Vomit (HCC) Peng Tinajero M.D. [facility] Procedures CT Chest without IV Contrast [place] CT THORAX WO CNTRST [address] [place] [phone] Referral ID Status Reason Start Date Expiration Date Visits Requ ested Visits Authorized [id number] Closed 12/28/2021 12/28/2022 1 1 Encounter Details Date Type Department Care Team Description 03/02/2022 Hospital Encounter Department of Peng Tinajero Pneumon itis Due To RadiologyDanny M.D. Inhalation Of Food Building, in [address] [facility] And Vomit (HCC) [place], [place] [address] [address] [place], [place] [phone] (Work) [phone] Social History Tobacco Use Types Packs/Day Years [...] or relatives? How often do you attend evangelical or hinduism More than 4 time s per year 04/11/2022 services? Do you belong to any clubs or organizations Yes 04/11/2022 such as evangelical groups, unions, fraternal or athletic groups, or [...]
--- OUTSIDE RECORDS SUMMARY | 2022-04-17 15:51 | XMS_ITS | Encounter Summary ---
:1940 Author Organization [facility] Address [address] [place] [address] Care Team Providers Name Role Phone Unavailable Primary Care Provider Unavailable Reason for Referral Outpatient (Routine) - Authorized Specialty Diagnoses / Procedures Referred By Contact Refer red To Contact Diagnoses Effusion Pericardial Acute (HCC) Chronic Systolic (Congestive) Heart Failure (HCC) Atrial Fibrillation Paroxysmal (HCC) Bundle Branch Block Left Dialysis Peritoneal Status (HCC) [facility] Procedures ECG Heart rhythm monitor (Holter) C.N.P. [address] [place] [address] Referral ID Status Reason Start Date Expiration Date Visits V isits Requested Authorized [id number] Authorized 03/08/2022 03/08/2023 1 1 Reason for Visit Outpatient (Routine) - Authorized Specialty Diagnoses / Procedures Referred By Contact Refer red To Contact Diagnoses Effusion Pericardial Acute (HCC) Chronic Systolic (Congestive) Heart Failure (HCC) Atrial Fibrillation Paroxysmal (HCC) Bundle Branch Block Left Dialysis Peritoneal Status (HCC) [facility] Procedures ECG Heart rhythm monitor (Holter) C.N.P. [address] [place] [address] Referral ID Status Reason Start Date Expiration Date Visits V isits Requested Authorized [id number] Authorized 03/08/2022 03/08/2023 1 1 Encounter Details Date Type Department Care Team Description 04/04/2022 Hospital Department of [place], Effusion Peric ardial Acute (HCC); Encounter Cardiovascular Mehrdad M, Chronic Systo lic (Congestive) Heart Failure (HCC); Diseases in [place], TITLE CAMERA OPERATOR, C.N .P. Atrial Fibrillation Paroxysmal (HCC); [place] [address] Bundle Branch Block Left; [address] [place], [place] Dialysis Peritoneal Status ( HCC) [place] [phone] Social History Tobacco Use Types Packs/Day Years [...] How often do you attend tenriism or hinduism More than 4 time s [...] Effusion Perica rdial Results for this CLINIC LOAN CLERK CDT Acute (HCC) procedure are in Chronic Systolic the results (Congestive) Heart section. Failure (HCC) Atrial Fibrillation Paroxysmal (HCC) Bundle Branch Block Left Dialysis Peritoneal Status (HCC) documented in this encounter Results HOLTER MONITOR - IN CLINIC LOAN CLERK (04/05/2022 6:00 AM CDT) P athologist Signature [...] seen singly at and around these times. Searchlight Operator: Marilou Zimmer / Violet Cotton Fellow: [...] seen singly at and around these times. Searchlight Operator: Marilou Zimmer / Violet Cotton Fellow: [...]
--- OUTSIDE RECORDS SUMMARY | 2022-04-17 15:51 | XMS_ITS | Encounter Summary ---
:1940 [facility] Address [address] [place] [address] Care Team Providers Name Role Phone Unavailable Primary Care Provider Unavailable Reason for Referral Outpatient (Routine) - Authorized Specialty Diagnoses / Referred By Contact Referred To Contact Procedures Cardiovascular Diseases / Diagnoses Stenosis Aortic Valve Acquired Arun Boone [facility] Cardiovascular Disease Trinh CASANOVA [address] [place] [address] Referral ID Status Reason Start Date Expiration Date Visits V isits Requested Authorized [id number] Authorized 04/15/2022 04/15/2023 1 1 Specialty Diagnoses / Procedures Referred By Contact Refer red To Contact Alyssa Richards M. D. [facility] [address] [place], [place] [address] Referral ID Status Reason Start Date Expiration Date Visits Requ ested Visits Authorized Outpatient (Routine) - Authorized Specialty Diagnoses / Procedures Referred By Contact Refer red To Contact Diagnoses Stenosis Aortic Valve Acquired Arun Boone III, M.D. [facility] Procedures ECG 12 Lead [address] [place] [phone] Referral ID Status Reason Start Date Expiration Date Visits V isits Requested Authorized [id number] Authorized 04/15/2022 04/15/2023 1 1 Outpatient (Routine) - Authorized Specialty Diagnoses / Procedures Referred By Contact Refer red To Contact Diagnoses Stenosis Aortic Valve Acquired Arun Boone III [facility] Procedures Echo Transthoracic (TTE) - Complex Valvular Heart Disease Trinh 200 [place], [place] [address] Referral ID Status Reason Start Date Expiration Date Visits V isits Requested Authorized [id number] Authorized 04/15/2022 04/15/2023 1 1 Outpatient (Routine) - Authorized Specialty Diagnoses / Procedures Referred By Contact Refer red To Contact Diagnoses Stenosis Aortic Valve Acquired Arun Boone III, M.D. [facility] Procedures DX Chest AP or PA and Lateral 2 Views [address] [place] [phone] Referral ID Status Reason Start Date Expiration Date Visits V isits Requested Authorized [id number] Authorized 04/15/2022 04/15/2023 1 1 Reason for Visit Outpatient (Routine) - Closed Specialty Diagnoses / Procedures Referred By Contact Refer red To Contact Cardiovascular Diseases / Diagnoses Effusion Pericardial Acute (HCC) Jessa Heredia [facility] Cardiovascular Disease Trinh [address] [place] [address] Referral ID Status Reason Start Date Expiration Date Visits Requ ested Visits Authorized [id number] Closed 03/02/2022 03/02/2023 1 1 Encounter Details Date Type Department Care Team Description 04/15/2022 Virtual Visit Department of Jessa Heredia M.D. [address] [place] [phone] Stenosis Aortic Valve Acquired (Primary Dx); Cardiovascular Medicine Alyssa Richards M.D. 200 [place] [address] Effusion Pericardial Acute (HCC) in [facility] rotary drier 200 [place] [address] Social History Tobacco Use Types Packs/Day Years [...] How often do you attend adventism or gnosticist More than 4 time s per year 04/11/2022 services? Do you belong to any clubs or organizations Yes 04/11/2022 such as adventism groups, unions, fraternal or athletic groups, or [...] documented as of this encounter Progress Notes Alyssa Richards M.D. - 04/15/2022 8:30 AM CDT SUPERVISED BY: Dr. Boone SUBJECTIVE CHIEF COMPLAINT / REASON FOR VISIT David is a 81 y.o. male who presents for evaluation of pericardial effusion Consult conducted via real-time audio/visual technology by Alyssa Richards M.D. in [facility] to the patient in patient's home. Subjective #1 Effusion Pericardial Acute (HCC) Psychosocial: Patient is calling from 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 Recent hospitalization for complicated parapneumonic effusion secondary to aspiration pneumonia in November of 2021 History of Present Illness: This appointment was requested by pulmonology back on March 02. He had a follow-up in the pleural Clinic for his right pleural effusion/right lower lobe consolidation. Repeat a CT chest done at the time noted moderate pericardial effusion hence a repeat TTE was ordered and follow-up with the entry operator as well requested. His most recent TTE demonstrated interval improvement with small circumferential pleural effusion noted. He also had a repeat ECG that was done which came back similar to previous ECG with first-degree AV block and left bundle-branch block noted. No diffuse ST segment elevation,KY depression, downsloping TP segment, or electrical alternans was noted. He also had a Holter monitor that was obtained for about 22 hours that showed a basic rhythm that was sinus with first-degree AV block and left bundle branch block morphology, he was also noted to have intermittent atrial fibrillation, with about 29% atrial fibrillation burden, he also has been PACs with the record burden of less than 1% and PVCs with a recorded burden of less than 7%. He had two symptomatic episode noted as lightheadedness, he was in sinus rhythm this event with a heart rate of 81-95 beats per minute. It should be noted that his previous TTE back in 2018, 2019, 2020 did demonstrate to via to small pericardial effusion. Patient was supposed to make it in person today, but is currently hospitalized in [place] due to some issues with nausea and dysphagia. As above, he has a know history of achalasia for which he underwent myotomy in 2021. He denies any symptoms to suggest orthopnea, PND, LE edema, fevers or chills. When we reviewed his CT we noted he has some calcification of his epicardial coronary arteries. His last lipid panel in record was back in 2018 which demonstrated an LDL of 109. He has never been on lipid Lower agent in the past. Objective Recent Diagnostic Work-up: TTE on 04/05/2022: Final Impressions 1. Normal left ventricular chamber size. Calculated ejection fraction 66%. 2. Abnormal ventricular septal motion due to conduction. No regional wall motion abnormalities. [...] mmHg. Aortic valve area by Doppler 1.65 cm??. Mild aortic valve regurgitation. 7. Calcified mitral annulus. Mean gradient 3 mmHg (heart rate 69 BPM). Mild mitral valve regurgitation. 8. Enlarged inferior vena cava size with normal inspiratory collapse (>50%). 9. Small circumferential pericardial effusion. ASSESSMENT / PLAN #1 Effusion Pericardial Acute (HCC) #2 Mild calcific aortic stenosis #3 Epicardial coronary artery calcification Briefly, this is an 81 year old gentleman that was referred to us for evaluation of pericardial effusion. He has had previous issues with trivial to small pericardial effusion based on the echocardiography that was obtained between 2018 to 2020. He has end-stage renal disease and is currently on hemodialysis and a struggled with chronic right pleural effusion which has been attributed to his renal failure. From a cardiac standpoint, he does carry the diagnosis heart failure with preserved ejection fraction most recent TTE with EF of 66% and he is also on anticoagulation with warfarin for atrial fibrillation. This was supposed to be an in-person appointment, but he is current admitted at an OSH for issues related to nausea and dysphagia in the setting of history of achalasia S/P Heller Myotomy back in 2020. We suspect that the etiology of his pleural effusion in his likely secondary to end-stage renal disease, there is also a component of this that may be coming from his heart failure. It is reassuring that his repeat TTE showed interval improvement. We also noted that he has some coronary artery calcification. He is currently not on any lipid lowering agent and his last lipid panel was done back in 2018. A discussed with the patient and his that we believe it will be prudent to do a repeat lipid panel and consider adding a statin for primaryprevention. We advised him to follow-up with his PCP regarding this. Plan: No intervention at this moment for his small pericardial. I discussed with the patient at his that we can re-evaluate this with a repeat TTE if he starts to develop the worsening dyspnea. I will place and order for follow-up in the valve clinic with a repeat TTE for his We recommended follow-up with his Primary care provider for consideration of statin therapy for primary prevention given he was noted to have calcifications in his epicardial coronary arteries. Arun Boone III, M.D. - 04/15/2022 8:30 AM CDT The patient was seen by telemedicine consult by Dr. Richards. I was not present the telemedicine consult but reviewed with Dr. Richards findings assessment plan as documented in his note dated today. Additionally I personally viewed the images of the patient's echocardiogram as well as the images of multiple chest CT scans. His pericardial effusion by echo is now small without any evidence of tamponade or constrictive physiology. I agree with recommendation that he does not need any current intervention unless it worsens and he develops symptoms. He does have dense coronary calcification but is asymptomatic. It is reasonable to consider statin therapy but I would not add an antiplatelet agent given that he is fully anticoagulated and asymptomatic. He does have valvular heart disease which should be followed with annual echocardiogram or sooner ifhe develops symptoms. Remainder of findings and recommendations as per Dr. Richards. documented in this encounter Plan of Treatment Scheduled Orders Name Type Priority Associated Order Schedule Diagnoses Albumin Lab Routine Stenosis Aortic Expected: Valve Acquired 04/15/2023 (Approximate), Expires: 07/16/2023 Creatinine with Lab Routine Stenosis Aortic Expected: Estimated GFR Valve Acquired 04/15/2023 (Approximate), Expires: 07/16/2023 Glucose, Fasting Lab Routine Stenosis Aortic Expected : Valve Acquired 04/15/2023 (Approximate), Expires: 07/16/2023 Potassium Lab Routine Stenosis Aortic Expected: Valve Acquired 04/15/2023 (Approximate), Expires: 07/16/2023 Sodium Lab Routine Stenosis Aortic Expected: Valve Acquired 04/15/2023 (Approximate), Expires: 07/16/2023 Prothrombin Time Lab Routine Stenosis Aortic Expected : (PT) Valve Acquired 04/15/2023 (Approximate), Expires: 07/16/2023 CBC with Lab Routine Stenosis Aortic Expected: Differential, Blood Valve Acquired 2022 (Approximate), Expires: 07/16/2023 Lipid Panel Lab Routine Stenosis Aortic Expected: Valve Acquired 04/15/2023 (Approximate), Expires: 07/16/2023 DX Chest AP or PA Imaging RAD - Routine Stenosis Aortic Expect ed: and Lateral 2 Views (most inpatients Valve Acquired and all (Approximate), outpatients) Expires: 07/16/2023 NT-Pro B-Type Lab Routine Stenosis Aortic Expected: Natriuretic Peptide Valve Acquired 2022 (BNP) (Approximate), Expires: 07/16/2023 Echo Transthoracic Echocardiography Routine Stenosis Aortic Ex pected: (TTE) - Complex Valve Acquired 04/15/2023 Valvular Heart (Approximate) , Disease Expires: 07/16/2023 ECG 12 Lead ECG Routine Stenosis Aortic Expected: Valve Acquired 04/15/2023 (Approximate), Expires: 07/16/2023 Scheduled Referrals Name Type Priority Associated Order Schedule Diagnoses Patient Education - Outpatient Referral Routine Stenosis Aorti c Expected: Heart valve class Valve Acquired 04/15/20 23 education visit (Approximate ), (clinic) Expires: 07/16/2023 Cardiovascular Disease Outpatient Referral Routine Stenosis Ao rtic Expected: - Valvular heart Valve Acquired 3 disease (VHD) consult (Appro ximate), (clinic) Expires: 07/16/2023 documented as of this encounter Visit Diagnoses Diagnosis Stenosis Aortic Valve Acquired - Primary Effusion Pericardial Acute (HCC) documented in this encounter
--- OUTSIDE RECORDS SUMMARY | 2022-04-17 15:51 | XMS_ITS | Encounter Summary ---
:1940 Author Organization [facility] Address [address] [place] [address] Care Team Providers Name Role Phone Unavailable Primary Care Provider Unavailable Reason for Referral Outpatient (Routine) - Authorized Specialty Diagnoses / Procedures Referred By Contact Refer red To Contact Diagnoses Effusion Pericardial Acute (HCC) Chronic Systolic (Congestive) Heart Failure (HCC) Atrial Fibrillation Paroxysmal (HCC) Bundle Branch Block Left Dialysis Peritoneal Status (HCC) Mehrdad Lazcano APRN, [facility] Procedures ECG Heart rhythm monitor (Holter) C.N.P. [address] [place] [address] Referral ID Status Reason Start Date Expiration Date Visits V isits Requested Authorized [id number] Authorized 03/08/2022 03/08/2023 1 1 Reason for Visit Reason Comments Triage Encounter Details Date Type Department Care Team Description 03/02/2022 Clinical Communication Department of Film Technician, [facility] Cardiovascular Medicine Trinh Alcaraz in [facility] potato peeler [address] [place] [address] Social History Tobacco Use Types Packs/Day [...] How often do you attend yarsani or anabaptism More than 4 time s per year 04/11/2022 services? Do you belong to any clubs or organizations Yes 04/11/2022 such as yarsani groups, unions, fraKrauttools or athletic groups, or school groups? How [...] Not on filedocumented as of this encounter Results HOLTER MONITOR - IN CLINIC PLANT MAINTENANCE MANAGER (04/05/2022 6:00 AM CDT) P athologist [...] Duration 6h 30m duration INFOBIONIC MOME AF Crowell 29 percent INFOBIONIC MOME Longest AF 7h [...] seen singly at and around these times. Facilities Locator: Marilou Zimmer / Violet Cotton Fellow: Clemente [...] seen singly at and around these times. Facilities Locator: Marilou Zimmer / Violet Cotton Fellow: Clemente Dos Santos MD Mehrdad Lazcano APRN, C.N.P. CV CARDIAC SERVICES PRO CEDURES Performing Organization Address City/State/ZIP Code Phon e Number INFOBIONIC MOME INFOBIONIC MOME NA (ABNORMAL) Sedimentation Rate (04/04/2022 11:36 AM CDT) [facility] Method Time Signature Sedimentation 61 (H) 3 - 28 04/04/2022 DTL Rate, B mm/h 12:50 PM CDT Specimen Anatomical Collection Method Collection Time Receive d Time (Source) Location / / Volume Laterality Blood (Blood, 04/04/2022 11:36 04/04/2022 Venous) AM CDT 11:56 AM CDT Mehrdad Lazcano APRN, C.N.P. LAB BLOOD ADD-ON Performing Organization Address [facility] Phon e Number [facility] - [address] [place] [phone] [facility] [place] [address] Laboratories-[facility] 200 [facility] (ABNORMAL) CBC with Differential, Blood (04/04/2022 11:36 AM CDT) [facility] Insight Direct (ServiceCEO) Method Time Signature Hemoglobin 11.7 (L) 13.2 [...] C.N.P. LAB BLOOD ADD-ON Performing Organization Address City/[facility] Phon e Number [facility] [address] (ABNORMAL) CRP (C-Reactive Protein) (04/04/2022 11:35 AM CDT) P athologist Signature C-Reactive 16.2 (H) <=8.0 mg/L 04/04/2022 DTL Protein (CRP), 1:55 PM CDT S Specimen Anatomical Collection Method Collection Time Receive d Time (Source) Location / / Volume Laterality Blood (Blood, 04/04/2022 11:35 04/04/2022 Venous) AM CDT 12:06 PM CDT Mehrdad Lazcano APRN, C.N.P. LAB BLOOD ADD-ON Performing Organization Address City/[facility] Phon e Number [facility] [address] (ABNORMAL) NT-Pro B-Type Natriuretic Peptide (BNP) [...] Organization Address City/State/ZIP Code Phon e Number [facility] - [address] [place], [place] [address] [facility] [place] [address] [facility] [address] (ABNORMAL) Comprehensive Metabolic Panel (04/04/2022 11:35 [...] 04/04/2022 DTL Black/ mL/min/BSA 1:48 PM CDT Monegasque Comment: ----ADDITIONAL INFORMATION---- Estimated GFR calculated using [...] Organization Address City/State/ZIP Code Phon e Number [facility] - [address] [place], [place] [address] [facility] [place] [address] [facility] [address] documented [...]
--- OUTSIDE RECORDS SUMMARY | 2022-04-17 15:51 | XMS_ITS | Encounter Summary ---
:1940 Author Organization [facility] Address [address] [place] [address] Care Team Providers Name Role Phone Unavailable Primary Care Provider Unavailable Reason for Visit Reason Comments Release of Information Encounter Details Date Type Department Care Team Description 03/03/2022 Clinical Division of Jessa Heredia of Communication Pulmonary Medicine Trinh Mendes Information in [place] [address] [address] [place], [place] [address] [facility] [address] [place], [place] [phone] (Work) [phone] Social History Tobacco Use Types Packs/Day Years [...] or relatives? How often do you attend shinto or jainism More than 4 time s per year 04/11/2022 services? Do you belong to any clubs or organizations Yes 04/11/2022 such as shinto groups, unions, fraternal or athletic groups, or [...] [facility] Evidence intake Method: MERLINE Ferrell / [id number] documented in this encounter Plan of Treatment Not on filedocumented as of this encounter Visit Diagnoses Not on filedocumented in this encounter
--- OUTSIDE RECORDS SUMMARY | 2022-04-17 15:52 | XMS_ITS | Encounter Summary ---
:1940 Author Organization [facility] Address [address] [place] [address] Care Team Providers Name Role Phone Unavailable Primary Care Provider Unavailable Reason for Visit Auth/Cert Specialty Diagnoses / Procedures Referred By Contact Refer red To Contact Diagnoses Hematemesis Hematemesis on Coumadin Procedures DIR Referral ID Status Reason Start Date Expiration Date Visits Requ ested Visits Authorized [id number] 1 1 Encounter Details Date Type Department Care Team Description 12/10/2021 Anesthesia Event Division of Gastroenterology Jamel Powers in [facility] bret Shah, GROCERY TEAM MEMBER, EFFICIENCY MANAGER, [address] [place], [place] [phone] [address] [facility] [phone] [place] [address] Anesthesia Record Procedure Summary Procedure Name Responsible Anesthesia Start Anesthesia Stop Time Anesthesiologist Time EGD Jamel Powers APRN, 12/10/21 1210 2 1256 ([facility]STRODU [facility]) Events Date Time Event Comment [...] h andoff to the receiving staff during [facility] we 1. Identified the patient [...] Roesner, Justin C, Time: 1218 (created via GROCERY TEAM MEMBER, EFFICIENCY MANAGER, D.N.P. GROCERY TEAM MEMBER, EFFICIENCY MANAGER, DNAP procedure documentation); Mask Ventilation: Not [...] How often do you attend sabianism or episcopalian More than 4 time s per year 04/11/2022 services? Do you belong to any clubs or organizations Yes 04/11/2022 such as sabianism groups, unions, fraternal or [...] Room / Location: Division of Gastroenterology in [place], [place] Anesthesia Start: 1210 Anesthesia Stop: 1256 [...] ETT location: oral VL device: glide scope [place] scope blade size: 3 Adult tube size: [...] EGD (ESOPHAGEALGASTRODUODENOSCOPY) Location: Division of Gastroenterology in [place], [place] Pertinent components of the patient's history [...] with patient /legal guardian or through an interpreter deaf. Risks/Benefits/Alternatives of Blood transfusion discussed with patient [...] ETT location: oral VL device: glide scope [place] scope blade size: 3 Adult tube size: [...] no complications ATTESTATION STATEMENT Bassam Hunt APRN, CRNA, D.N.P. ANESTHESIA ORDERA BLES documented in this [...]
--- OUTSIDE RECORDS SUMMARY | 2022-04-17 15:52 | XMS_ITS | Encounter Summary ---
:1940 Author Organization [facility] Address [address] [place] [address] Care Team Providers Name Role Phone Unavailable [...] How often do you attend christianity or mandaen More than 4 time s [...]
--- OUTSIDE RECORDS SUMMARY | 2022-04-17 15:52 | XMS_ITS | Encounter Summary ---
:1940 Author Organization [facility] Address [address] [place] [address] Care Team Providers Name Role Phone Unavailable Primary Care Provider Unavailable Encounter Details Date Type Department Care Team Description 2021 Ancillary Procedure Department of Radiology Gavin Andujar, in [facility] Natalie queen APRNN.P. [address] [facility] [address] [place] [address] [place] [address] Social History Tobacco Use Types Packs/Day Years [...] or relatives? How often do you attend catholic or mandaen More than 4 time s per year 04/11/2022 services? Do you belong to any clubs or organizations Yes 04/11/2022 such as catholic groups, unions, fraternal or athletic groups, or [...]
--- OUTSIDE RECORDS SUMMARY | 2022-04-17 15:52 | XMS_ITS | Encounter Summary ---
:1940 Author Organization [facility] Address [address] [place] [address] Care Team Providers Name Role Phone Unavailable [...] How often do you attend temple or yazdanism More than 4 time s per year 04/11/2022 services? Do you belong to any clubs or organizations Yes 04/11/2022 such as temple groups, unions, fraternal or athletic groups, or [...]
--- OUTSIDE RECORDS SUMMARY | 2022-04-17 15:52 | XMS_ITS | Encounter Summary ---
:1940 Author Organization [facility] Address [address] [place] [address] Care Team Providers Name Role Phone Unavailable Primary Care Provider Unavailable Encounter Details Date Type Department Care Team Description 12/08/2021 Orders Only Division of Nephrology and Turner, Lyric Leiva PRN, Hypertension, Gnosticism C.N.P. Renner, in [place], [facility] [place] [address] [place], [place] [address] [place] [address] [place] [address] [phone] Social History Tobacco Use Types Packs/Day Years [...] or relatives? How often do you attend anglican or restoration More than 4 time s per year 04/11/2022 services? Do you belong to any clubs or organizations Yes 04/11/2022 such as anglican groups, unions, fraternal or athletic groups, or [...]
--- OUTSIDE RECORDS SUMMARY | 2022-04-17 15:52 | XMS_ITS | Encounter Summary ---
:1940 Author Organization [facility] Address [address] [place] [address] Care Team Providers Name Role Phone Unavailable Primary Care Provider Unavailable Encounter Details Date Type Department Care Team Description 12/09/2021 Clinical Communication [facility], P.Sandra, M.S . [facility], [address] [place] [address] Third Floor [place], [place] [address] [place] [address] [place], [place] [phone] (Work) [phone] Social History Tobacco Use Types Packs/Day Years [...] or relatives? How often do you attend latter day or presybeterian More than 4 time s per year 04/11/2022 services? Do you belong to any clubs or organizations Yes 04/11/2022 such as latter day groups, unions, fraternal or athletic groups, or [...]
--- OUTSIDE RECORDS SUMMARY | 2022-04-17 15:52 | XMS_ITS | Encounter Summary ---
:1940 Author Organization [facility] Address [address] [place] [address] Care Team Providers Name Role Phone Unavailable Primary Care Provider Unavailable Reason for Visit Auth/Cert Specialty Diagnoses / Procedures Referred By Contact Refer red To Contact Diagnoses Empyema Pleural (HCC) weakness Procedures DIR TO IP Referral ID Status Reason Start Date Expiration Date Visits Requ ested Visits Authorized [id number] 1 1 Encounter Details Date Type Department Care Team Description 2021 - [facility] John Paul Dockery M.D., M.P.H. [address] [place] [address] Hydropneumothorax (Primary Dx); [facility] [address] [place] [address] Empyema Pleural (HCC); [facility], Ace Menchaca M.D. Effusion Pleural; Domitilla Dysphagia; Building, [facility] Floor [address] [place] [phone] Social History Tobacco Use Types Packs/Day [...] or relatives? How often do you attend orthodox or restoration More than 4 time s per year 04/11/2022 services? Do you belong to any clubs or organizations Yes 04/11/2022 such as orthodox groups, unions, fraternal or athletic groups, [...] CDT DISCHARGE SUMMARY BRIEF OVERVIEW Discharge Hospital: [facility] Discharge Provider: Arti Lozoya M.D. Discharge Provider Team: Hospital Internal Medicine ([facility]) - [facility] Medicine 8 ([facility]) No primary care provider on file. [...] Admitting/Central Scheduling 12/28/2021 8:[address] [facility] LOS 809 Radiology 12/28/2021 1:30 PM Peng Tinajero M.D. Pulmonary Medicine For appointment details refer to your Patient Appointment Guide. TEST RESULTS PENDING AT DISCHARGE Pending Labs Order Current Status Fungal Culture, Routine In process DETAILS OF HOSPITAL STAY REASON FOR ADMISSION Empyema Pleural (HCC) HOSPITAL COURSE Mr. David Castro is a 81 y.o. male who presented to the [facility] ED with a chief complaint of weakness [...] both lower legs. He initially presented to [place] ED, then transitioned to [facility] for further care. Identified on CTperformed at [place] to have a complex hydropneumothorax with scattered [...] care was discussed with Dr. Lozoya, HIM strategic consultant. I saw and evaluated Mr. David Castro today and provided counseling dqyu-nz-vhwz at bedside. I personally spent a total of 35 minutes in counseling and coordination of care as described above to facilitate the hospital discharge. Discharge instructions were provided to the patient and caregiver(s). documented in this encounter Discharge Instructions Discharge InstructionsBernice Pisano - 2021 7:19 AM CDT You were discharged from the [place] [address] ([facility]) Service. Please identify this service name if you call with questions after hospitalization. AppointmentsBernice Pisano - 2021 2:46 PM CDT Take a copy of this after visit summary to your appointment(s). DIVINA Van December 09, 2021 - --4:10 PM - Hospital Follow-Up with Dr. Doran, at [facility] Address: [address] [place] [address]. [place] [address] If you have any questions, concerns, or need to reschedule please call [phone] AttachmentsThe following attachments cannot be sent through Care Everywhere. Amoxicillin/Clavulanate Potassium (By mouth) (Nigerian)Gentamicin (On the skin) (Nigerian)Cholecalciferol (By mouth) (Nigerian)documented in this encounter Medications at Time of [...] he dismisses today as recommended by Nephrology strategic consultant Dr. Kennedy. Addendum: Continue to hold his oral torsemide 40 mg daily in the setting of soft blood [facility] peritoneal dialysis nurse in [...] Plan was reviewed with Dr. Kennedy nephrology strategic consultant. For questions or concerns, please page the Nephrology A EDUCATION CONSULTANT/PA pager, [phone] or you may text page by clicking [...] each. See patient education flowsheet for details. Fishing Captain assisted with ordering late afternoon meal and breakfast. Patient stops eating by 3-4 pm and sits upright after all meals and while asleep. PLAN If patient remains hospitalized, may consider transitioning to regular diet to allow foods of his tolerance and preference. For questions about patient's nutritional care please contact pager [phone] on weekdays or [phone] on weekends/holidays. Juan Pablo Giron, D., R.Ph. [...] questions about this note. Yue Perez O.T., [facility] - 12/07/2021 12:48 PM CDT OT Dysphagia [...] pleural fluid when he was admitted to [facility] for heart failure (EF 25-30%). This pleural [...] was seen and discussed with the supervising strategic consultant, Dr. Gonzales. We will sign off. Please contact [phone] with questions or concerns. Jaqueline Moseley M.D. [facility] Fellow Associated attestation - Chely Gonzales M.D., [...] is glad to see the sun shining. River Transportation Worker initiated contact to introduce spiritual care department and to assess for potential spiritual care needs. Family: Mr. Castro's support system was at the bedside. Marixa Tradition: Mr. Castro is Orthodoxy, per his chart. He shares that he's been able to watch his orthodox's services online and has found it to be comforting. Mr. Castro did not think he had any specific spiritual care needs at this time and was alerted to quantitative analyst availability if any needs arise in the future. Plan: Will remain available for spiritual care as needed or requested. Chaplains can be contacted bypaging [phone] (Anabaptist) or [phone] ([place]). Jeannine Jay APRN, C.N.P., M.S.N. - 12/07/2021 [...] or concerns, please page the Nephrology A EDUCATION CONSULTANT/PA pager, [phone] or you may text page by clicking here. Associated attestation - Yamileth Kennedy M.D., Ph.D. - 12/07/2021 2:18 PM CDT I was the supervising physician in the delivery of the service. Maria G Adame P.A.-C., M.S. - 12/07/2021 7:34 AM CDT [facility] Medicine 8 ([facility]) Progress Note SUBJECTIVE Interval history: Patient [...] / PLAN Mr. Castro is hospitalized on [place] [address] ([facility]) for evaluation and management of Empyema Pleural(HCC). 81 year old male admitted for weakness and new right sided pleural effusion. He was brought to the ED after he was unable to stand to get out of his car due to acute onset of lower extremity weakness. Work up in the ED was notable for Initially He is admitted to [place] [address] for further evaluation. ?? #1 Weakness, generalized [...] weeks -follow up in Esophagus clinic -appreciate enrober to discuss diet education ?? #13 Elevated [...] care was discussed with Dr. Lozoya, HIM strategic consultant. Counseling was provided pbms-jl-rrgt at bedside regarding the plan of care as stated above. I personally spent over half of a total 35 minutes in counseling and coordination of care as documented above. Maria G Adame P.A.-C., M.S. [facility] 0 - [phone] [address] M.B.BBaileyS. - 12/06/2021 3:58 PM [...] Please page the GI consult pager at [phone] with any further questions or concerns. Evette [...] feel free to discusswith Dr. Yamileth Kennedy, technical sales representatives and IR. -- As patient NPO, please [...] or concerns, please page the Nephrology A EDUCATION CONSULTANT/PA pager, [phone] or you may text page by clicking here. Associated attestation - Yamileth Kennedy M.D., Ph.D. - 12/06/2021 6:01 PM CDT I reviewed the case with the resident/fellow but did not see the patient. I agree with the assessment and plan as documented in the EDUCATION CONSULTANT's note. Jaqueline Fontanez M.D. - 12/06/2021 10:32 [...] effusion. Images were saved and uploaded to [employer]. DIAGNOSTICS I have reviewed relevant laboratory, imaging, [...] pleural fluid when he was admitted to [facility] for heart failure (EF 25-30%). This pleural [...] was seen and discussed with the supervising strategic consultant, Dr. Gonzales. We will continue to follow. Please contact [phone] with questions or concerns. Jaqueline Moseley M.D. [facility] Fellow Associated attestation - Chely Gonzales M.D., [...] 5.) Constipation: Miralax daily Soo Plaza, PharmD [phone] Simran Helm P.A.-C., M.S. - 12/06/2021 7:44 AM CDT [facility] Medicine 8 ([facility]) Progress Notes SUBJECTIVE The [facility] Medicine 8 ([facility]) service evaluated Mr. Castro this morning [...] - 12/06/2165812/06/21 07 - 12/07/21 0659 Shift 9246-7736 6421-9005 3329-1022 24 Hour Total 1637-3017 4724-7892 7641-1751 24 Hour Total INTAKE P.O. 180 240 [...] CAM negative for acute delirium. Reliable history resident caregiver. 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 ASSESSMENT / PLAN Mr. Castro is hospitalized on [place] [address] ([facility]) for evaluation and management of Empyema Pleural(HCC). He was brought to the ED after he was unable to stand to get out of his car due to acute onset of lower extremity weakness. Additional workup in the ED concerning for recurrent pleural effusions/empyema as below. He is admitted to [place] [address] for further evaluation. #1 Weakness, generalized Improved [...] plan of care detailed above. I provided hnrk-ts-jfuj counseling at bedside regarding the plan of care. The patient acknowledged an understanding and agreed with the plan of care listed above. I personally spent over half of a total 40 minutes in counseling and coordination of care as documented above. Simran Helm M.S., PA-C Pager: [phone] Evette Pham APRN, C.N.P., D.N.P. - 12/05/2021 [...] or concerns, please page the Nephrology A EDUCATION CONSULTANT/PA pager, [phone] or you may text page by clicking [...] effusion. Images were saved and uploaded to [employer]. DIAGNOSTICS I have reviewed relevant laboratory, imaging, [...] pleural fluid when he was admitted to [facility] for heart failure (EF 25-30%). This pleural [...] was seen and discussed with the supervising strategic consultant, Dr. Means. We will continue tofollow. Please contact [phone] with questions or concerns. Avis Dobson. [facility] Fellow Associated attestation - Will Means M.D. [...] P.A.-C., M.S. - 12/05/2021 6:58 AM CDT [facility] Medicine 8 ([facility]) Progress Notes SUBJECTIVE The [facility] Medicine 8 ([facility]) service evaluated Mr. Castro this morning [...] 12/04/21699 - 12/05/2165812/05/21699 - 12/06/21 0659 Shift 4374-7619 4137-6420 4410-4094 24 Hour Total 3852-1581 8108-0191 7267-7517 24 Hour Total INTAKE P.O. 210 210 Other 10 0 10 Intermittent Medications 50 50 50 150 Shift Total(mL/kg) 270(3.4) 50(0.6) 50(0.6) 370(4.7) OUTPUT Urine(mL/kg/hr) 350(0.6) 275 625 Urine 350 275 625 Chest Tube 160 60 220 Dialysis 4 80 84 Shift Total(mL/kg) 514(6.5) 415(5.3) 929(11.8) NET 270 464 -365 -219 Weight (kg) 78.6 78.6 78.6 78.6 78.6 [...] CAM negative for acute delirium. Reliable history resident caregiver. 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 ASSESSMENT / PLAN Mr. Castro is hospitalized on [place] [address] ([facility]) for evaluation and management of Empyema Pleural(HCC). He was brought to the ED after he was unable to stand to get out of his car due to acute onset of lower extremity weakness. Additional workup in the ED concerning for recurrent pleural effusions/empyema as below. He is admitted to [place] [address] for further evaluation. #1 Weakness, generalized Improved [...] plan of care detailed above. I provided nprv-yi-iioc counseling at bedside regarding the plan of care. The patient acknowledged an understanding and agreed with the plan of care listed above. I personally spent over half of a total 40 minutes in counseling and coordination of care as documented above. Simran Helm M.S., PA-C Pager: [phone] Jaqueline Fontanez M.D. - 12/04/2021 3:19 PM [...] effusion. Images were saved and uploaded to [employer]. DIAGNOSTICS I have reviewed relevant laboratory, imaging, [...] pleural fluid when he was admitted to [facility] for heart failure (EF 25-30%). This pleural [...] was seen and discussed with the supervising strategic consultant, Dr. Means. We will continue tofollow. Please contact [phone] with questions or concerns. Jaqueline Moseley M.D. [facility] Fellow Yamileth Kennedy M.D., Ph.D. - 12/04/2021 [...] or concerns, please page the Nephrology A EDUCATION CONSULTANT/PA pager, [phone] or you may text page by clicking here. Will Means M.D. - 12/04/2021 1:46 PM CDT Narrative summary: We visited with this patient for long time at the bedside. We reviewed his CT scan and his prior records including initial consult from Dr. Jimenez. I discussed the case with nephrology crkb-bo-obil. He is an 81M never smoker who is retired from [employer]. He has the prior history of lymphocytic [...] P.A.-C., M.S. - 12/04/2021 7:59 AM CDT [facility] Medicine 8 ([facility]) Progress Notes SUBJECTIVE The [facility] Medicine 8 ([facility]) service evaluated Mr. Castro this morning [...] - 12/04/21 0612/04/21699 - 12/05/21 0659 Shift 1675-7213 6391-1460 1986-5059 24 Hour Total 1818-5089 9184-7781 4767-8765 24 Hour Total INTAKE P.O. 240 400 [...] lower extremities bilaterally. Coordination intact w ith ldddsi-gz-gija testing, rapid alternating hand movements. Negative pronator drift. Mental: Mood and affect congruent. Alert and oriented. Attention intact. No evidence of disorganizedthinking. RASS 0. 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 Reliable history resident caregiver. DIAGNOSTICS I personally reviewed labs, imaging, EMR. ASSESSMENT / PLAN Mr. Castro is hospitalized on [place] [address] ([facility]) for evaluation and management of Empyema Pleural(HCC). He was brought to the ED after he was unable to stand to get out of his car due to acute onset of lower extremity weakness. Additional workup in the ED concerning for recurrent pleural effusions/empyema as below. He is admitted to [place] [address] for further evaluation. #1 Weakness, generalized He [...] plan of care detailed above. I provided ejem-hd-toik counseling at bedside regarding the plan of care. The patient acknowledged an understanding and agreed with the plan of care listed above. I personally spent over half of a total 40 minutes in counseling and coordination of care as documented above. Simran Helm M.S., PA-C Pager: [phone] Jaqueline Fontanez M.D. - 12/03/2021 1:21 PM CDT Images from the original note were not included. Pleural Service/Interventional Pulmonology Service Consult Note SUBJECTIVE Referral Source: Jamal Andujar, VB NET DEVELOPER, C.N.P. Reason for Consult: Suspected empyema Interval [...] effusion. Images were saved and uploaded to [employer]. DIAGNOSTICS I have reviewed relevant laboratory, imaging, [...] pleural fluid when he was admitted to [facility] for heart failure (EF 25-30%). This pleural [...] was seen and discussed with the supervising strategic consultant, Dr. Jimenez. We will continue to follow. Please contact [phone] with questions or concerns. Jaqueline Moseley M.D. [facility] Fellow Associated attestation - Will Means M.D. [...] 12/03/2021 12:25 PM CDT T Medicine 8 ([facility]) Progress Notes SUBJECTIVE The [facility] Medicine 8 ([facility]) service evaluated Mr. Castro this morning [...] 12/02/21699 - 12/03/2165812/03/21699 - 12/04/21 0659 Shift 8680-1504 6825-0191 6782-9416 24 Hour Total 6303-6641 2129-3768 9863-3285 24 Hour Total INTAKE P.O. 236 360 [...] CAM negative for acute delirium. Reliable history resident caregiver. DIAGNOSTICS I personally reviewed labs, imaging, EMR. ASSESSMENT / PLAN Mr. Castro is hospitalized on [place] [address] ([facility]) for evaluation and management of Empyema Pleural(HCC). He was brought to the ED after he was unable to stand to get out of his car due to acute onset of lower extremity weakness. This is since resolved. Additional workup in the ED concerning for recurrent pleural effusions/empyema as below. He is admitted to [place] [address] for further evaluation. #1 Weakness, generalized--improving In [...] plan of care detailed above. I provided tuod-sj-fzzr counseling at bedside regarding the plan of care. The patient acknowledged an understanding and agreed with the plan of care listed above. I personally spent over half of a total 40 minutes in counseling and coordination of care as documented above. Simran Helm M.S., PA-C Pager: [phone] Diana Reed, ALONAN, LD - 12/03/2021 11:18 [...] achalasia which patient reported has been a alf issue. He stated he usually eats throughout [...] 1900 calories/day Method to Estimate Energy Needs: [place] (Basal + 20%) Weight Used for Equation [...] about patient's nutritional care please contact pager [phone] on weekdays or [phone] on weekends/holidays. Kasia Narayanan Pharm.D., R.Ph. - [...] regimen intensified today Kasia Narayanan PharmD, BCPS [phone] Evette Pham APRN, C.N.P., D.N.P. - 12/03/2021 [...] lab and they are looking into the dkrz-qi-zcgtwod on the pleural fluidglucose drawn > 24 [...] or concerns, please page the Nephrology A EDUCATION CONSULTANT/PA pager, [phone] or you may text page by clicking [...] 2021 1:23 PM CDT T Medicine 8 ([facility]) Progress Notes SUBJECTIVE The T Medicine 8 ([facility]) service evaluated Mr. Castro this morning [...] Admitted) 12/02/21 0700 - 12/03/21 0659 Shift 0130-6594 0796-1021 6802-6319 24 Hour Total 6122-9976 5362-6911 9925-4129 24 Hour Total INTAKE Shift Total(mL/kg) OUTPUT [...] CAM negative for acute delirium. Reliable history resident caregiver. DIAGNOSTICS I personally reviewed labs, imaging, EMR. ASSESSMENT / PLAN Mr. Castro is hospitalized on [place] [address] ([facility]) for evaluation and management of Empyema Pleural(HCC). He was brought to the ED after he was unable to stand to get out of his car due to acute onset of lower extremity weakness. This is since resolved. Additional workup in the ED concerning for recurrent pleural effusions/empyema as below. He is admitted to [place] [address] for further evaluation. #1 Weakness, generalized--improving He [...] plan of care detailed above. I provided zwvq-il-vypm counseling at bedside regarding the plan of care. The patient acknowledged an understanding and agreed with the plan of care listed above. I personally spent over half of a total 40 minutes in counseling and coordination of care as documented above. Simran Helm M.S., PA-C Pager: [phone] Kasia Ridley, PharmBaileyD., R.Ph. - 2021 9:48 [...] from the hospital. Kasia Ridley Pharm.D., R.Ph. [phone] documented in this encounter H&P Notes Jamal Andujar, DWIGHT, C.N.P. - 2021 1:00 AM CDT [facility] Medicine 8 ([facility]) Admission Note SUBJECTIVE CHIEF COMPLAINT Weakness [...] He sat in the recliner andwatched [employer] Game and after noted he was still very weak, thus took him to [facility]. At [place], we do not have much info, as they are not in care everywhere; he reports he had labs and a CT, was told he had fluid around his lungs, thus he was given Zosyn and Clindamycin, reports around 1999 and 2200 roughly. Reports [place] was working on trying to send him out; and eventually he was transitioned to [facility] here and directly admitted. In meeting Mr. [...] in hospital. He has no other complaints. [facility] gave him all his evening med's. I [...] I have independently reviewed the CT/CXR from [place], showing Empyema with air, in Qreads. ASSESSMENT [...] and 2200. -Ordered CT/CXR for interpretation by [place]/here. -Ordered CMP, Mg, Phos, CBCdiff, lactate, procalcitonin, [...] and walk) Disposition: Home Counseling was provided xqsc-hg-mvbh at bedside regarding the plan of care [...] fellow participated in the procedure, and the strategic consultant was present for the entire procedure. [...] right posterior Intercostal space: 9th Puncture method: oqrf-juc-slornv catheter Number of attempts: 1 Drainage characteristics: [...] fellow participated in the procedure, and the strategic consultant was present for the entire procedure. Associated attestation - Cj Jimenez M.D. - 2021 2:42 PM CDT I was present for the entirety of the procedure(s). documented in this encounter Consult Notes Aleida Flores M.D. - 12/03/2021 3:26 PM CDT INPATIENT SUPERVISORY CONSULT NOTE Date of Consultation: 12/03/2021 Requesting Service: [facility] Medicine 8 ([facility]) This is a supervisory note for [...] Heller myotomy locally with Dr. Awan at [place]. The think that this was at least [...] of? Esophageal perforation Briefly, he is from [place] Lives at home Functionally very active [...] Please page the GI consult pager at [phone] with any questions or concerns. Ani Tariq PBaileyT., D.P.T. - 12/03/2021 12:51 PM CDT Physical Therapy Inpatient Evaluation/Treatment SUBJECTIVE Patient's Name: David Castro Referring/Attending Provider: John Paul Dockery M.D. Medical Diagnosis: Empyema Pleural (HCC) [J86.9] Reason for Referral: PT eval and treat- acute Onset Date: 12/02/21 [facility] / Plan: [facility] MEDICARE COMPLETE / Product Type: PPO [...] the gym Prior Mobility/Functional Transfers Level of [place]: Independent Home Living Type of Home: House [...] therapy session: during hallway mobility Outcome Measures [facility] Inpatient Short Form: -[facility] Basic Mobility (V.2) How much help from [...] 3-5 steps with a railing?: A Little -[facility] Basic Mobility (V.2) Raw Score: 22 -[facility] Basic Mobility (V.2) Standardized Score: 47.4 Interpretation: Clinicians answer the -[facility] Inpatient Short Form based on observed patient [...] admitted today with complaints of weakness for hours. He has a pertinent past medical [...] proceeded with placement of a right 12 Syriac locking loop thoracostomy tube. Post placement chest [...] 14 Ht 167.6 cm Wt 79.3 kg HwC861% BMI 28.22 kg/m?? General: pleasant, lying in bed with family at the side Pulmonary: no audible breathing, no increased work of breathing Bedside ultrasound demonstrated a moderate right pleural effusion with septations and no left pleural effusion. Images were saved and uploaded to [employer]. Bedside ultrasound demonstrating placement of guidewire for pigtail DIAGNOSTICS I have reviewed relevant laboratory, imaging, and other diagnostics as applicable to this consultation. Associate Data Scientist CXR on CT Chest 12/01/21 compared to [...] pleural fluid when he was admitted to [facility] for heart failure (EF 25-30%) Initially we [...] was seen and discussed with the supervising strategic consultant, Dr. Jimenez. We will continue to follow. Please contact [phone] with questions or concerns. Jaqueline Moseley M.D. [facility] Fellow Viki Waldrop O.T., O.TCodie - 2021 1:50 PM CDT Occupational Therapy Dysphagia Evaluation/Treatment SUBJECTIVE Patient's Name: David Bello Gustaboallie Referring/Attending Provider: John Paul Dockery M.D. 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 Kennedy, Nephrology A strategic consultant For questions or concerns, please page the Nephrology A EDUCATION CONSULTANT/PA pager [phone]). Associated attestation - Yamileth Kennedy M.D., Ph.D. [...] Xray completed post removal. Plan to discharge [facility] tomorrow. Problem: ALTERED NUTRIENT INTAKE - ADULT Goal: Nutrient intake appropriate for improving, restoring or maintaining nutritional needs Outcome: Progressing Note: Infantryman able to meet with patient and at [...] Pigtail chest tube placed and set to -[id number] continuous suction. IV Zosyn administered. Plan for [...] 81 y.o. male who presented to the [facility] ED with a chief complaint of weakness [...] both lower legs. He initially presented to [facility], then transitioned to [facility] for further care. Identified on [facility]performed at [facility] to have a complex hydropneumothorax with scattered [...] all are in the outpatients) results section. MA PLEURA DRAIN PERC Routine 2021 6:25 Empyema Pleural R esults for W IMG GUID PM CDT (HCC) this procedure Effusion Pleural are in the Hydropneumothora results x section. CONTINUOUS CYCLING Routine 2021 1:17 PERITONEAL DIALYSIS PM CDT (CCPD) AMYLASE, BF Routine 2021 10:04 Results for AM CDT this procedure are in the results section. MA THORACENTESIS Routine 2021 9:47 Effusion Pleural Resu lts for PLEURA W IMG AM CDT this procedure are in the results section. BROAD RANGE BACTERIA Timed 2021 9:36 Resu lts for PCR AND SEQUENCING AM CDT this proc edure are in the results section. CYTOLOGY NON-LAMP INSPECTOR Timed 2021 9:36 Results for AM CDT [...] 12/08/2021 DTL Black/ mL/min/BSA 10:28 AM CDT Turkish Comment: ----ADDITIONAL INFORMATION---- Estimated GFR calculated using [...] Address City/State/ZIP Code Phon e Number [facility] - [address] [place], [place] [address] [facility] [place] [address] Laboratories-[address] (ABNORMAL) CBC without Differential (12/08/2021 9:26 AM CDT) [facility] Method Time Signature Hemoglobin 9.9 (L) 13.2 [...] Address City/State/ZIP Code Phon e Number [facility] - [address] [place] [address] [facility] [place] [address] Laboratories-[address] (ABNORMAL) Prothrombin Time (PT) (12/08/2021 9:26 AM CDT) [facility] Method Time Signature Prothrombin 16.5 (H) 9.4 [...] Address City/State/ZIP Code Phon e Number [facility] - [address] [place], [place] [address] [facility] [place] [address] Laboratories-[facility] [address] (ABNORMAL) Basic [...] 12/07/2021 DTL Black/ mL/min/BSA 1:56 PM CDT Turkish Comment: ----ADDITIONAL INFORMATION---- Estimated GFR calculated using [...] M.S. LAB BLOOD ADD-ON Performing Organization Address City/[facility] Phon e Number [facility] - [address] [place], [place] [address] [place], [place] [address] [place] [address] (ABNORMAL) Parathyroid Hormone (PTH) (12/07/2021 12:38 PM [...] C.N.PBailey LAB BLOOD ADD-ON Performing Organization Address City/[facility] Phon e Number [facility] - [address] [place], [place] [address] [place] [address] (ABNORMAL) Hepatic Function Panel (12/07/2021 12:38 [...] CDT PM CDT Maria G Adame P.A.-C. M.S. LAB BLOOD ADD-ON Performing Organization Address City/State/ZIP Code Phon e Number [facility] - [address] [place], [place] [address] [facility] [place] [address] Laboratories-[facility] [address] DX Chest 1 View (12/07/2021 10:19 AM [...] aorta. Jaqueline Moseley M.D. IMG DIAGNOSTIC IMAGING MA OCEDURES (ABNORMAL) Prothrombin Time (PT) (12/07/2021 8:06 AM CDT) [facility] Method Time Signature Prothrombin 16.8 (H) 9.4 [...] Laterality Blood (Blood, 12/07/2021 8:06 AM 12/08/19 22 8:43 Venous) CDT AM CDT Simran Helm P.A.-C., M.S. LAB BLOOD ADD-ON Performing Organization Address City/State/ZIP Code Phon e Number [facility] - [address] [place] [address] [facility] [place] [address] Laboratories-[facility] 200 [facility] Esophagram Single Contrast (12/06/2021 2:03 PM CDT) [...] SINGLE CONTRAST COMPARISON: ??Esophagram 09/17/2018. FINDINGS: ??Preprocedural induction coordination power engineer image de monstrates partially visualized right pleural [...] SINGLE CONTRAST COMPARISON: Esophagram 09/17/2018. FINDINGS: Preprocedural induction coordination power engineer image demo nstrates partially visualized right pleural [...] 12/06/2021 DTL Black/ mL/min/BSA 5:40 AM CDT Turkish Comment: ----ADDITIONAL INFORMATION---- Estimated GFR calculated using [...] Address City/State/ZIP Code Phon e Number [facility] - [facility] [address] [place], [place] [address] [facility] [place] [address] Laboratories-[facility] 200 [facility] (ABNORMAL) Prothrombin Time (PT) (12/06/2021 4:17 AM CDT) [facility] gist Method Time Signature Prothrombin 22.9 [...] Venous) CDT AM CDT Simran Helm P.A.-C. MBaileyS. LAB BLOOD ADD-ON Performing Organization Address [facility] Phon e Number [facility] - [address] [place], [place] [address] [place] [address] Laboratories-[address] Broad Range Bacteria PCR+Sequencing (12/05/2021 10:03 AM CDT) Component Value Ref Test Analysis Performed At Patholo gist Range Method Time Signature Broad Range No bacterial DNA detected. 12/07/2021 DTL Bacteria This test was developed and its performance characteri stics 2:17 PM CDT PCR+Sequencin determined by [facility] in a manner consistent with g CLIA [...] - GENERAL O RDERABLES Performing Organization Address [facility] Phon e Number [facility] - [address] [place] [address] [address] [place] [address] Laboratories-[address] (ABNORMAL) Renal Function Panel (12/05/2021 8:34 [...] 12/05/2021 DTL Black/ mL/min/BSA 9:25 AM CDT Turkish Comment: ----ADDITIONAL INFORMATION---- Estimated GFR calculated using [...] Address City/State/ZIP Code Phon e Number [facility] - [facility] [address] [place] [address] [facility] [place] [address] Laboratories-[facility] 200 [facility] Connective Tissue Diseases [place] (12/05/2021 8:34 AM CDT) P athologist Signature Antinuclear Ab, 0.4 <=1.0 12/06[facility] 1:12 PM CDT U Comment: ----ADDITIONAL INFORMATION---- Method: Enzyme-linked immunoassay using HEp-2 nuclear extract supplemented with purified antig ens. Cyclic Citrullinated <15.6 <20.0 (Negative) U 12/06/2021 10:49 AM [facility] Peptide Ab, S CDT Interpretation SEE COMMENT 12/06/2021 1:12 PM [facility] CDT Comment: Tests for antibodies to dsDNA and SHREYAS an tigens are not performed automatically unless the TANVIR r esult is > or = 3.0 U. ??Studies performed at [facility] indicate that positive TANVIR results <3.0 U are rarely a ccompanied by positive second order tests. Specimen Anatomical Collection Method Collection Time Receive d Time (Source) Location / / Volume Laterality Blood (Blood, 12/05/2021 8:34 AM 12/07/19 7:51 Venous) CDT AM CDT Simran Helm P.A.-C., M.S. LAB BLOOD ADD-ON Performing Organization Address City/[facility] Phon e Number [facility] [address] MEJIA [place], [place] [address] [place] [address] Laboratory Medicine and Pathology [address] [place] [address] Dr. MEJIA (ABNORMAL) Prothrombin Time (PT) (12/05/2021 8:34 AM CDT) [facility] Method Time Signature Prothrombin 29.4 (H) 9.4 [...] M.S. LAB BLOOD ADD-ON Performing Organization Address City/State/[facility] Phon e Number [facility] - [address] [place], [place] [address] [facility] [place] [address] Laboratories-[facility] [address] DX [...] Address City/State/ZIP Code Phon e Number [facility] - [address] [place], [place] [address] [facility] [place] [address] [facility] 200 [facility] (ABNORMAL) Renal Function Panel (12/04/2021 7:19 AM [...] 12/04/2021 DTL Black/ mL/min/BSA 8:38 AM CDT Turkish Comment: ----ADDITIONAL INFORMATION---- Estimated GFR calculated using [...] Address City/State/ZIP Code Phon e Number [facility] - [address] [place], [place] [address] [facility] [place] [address] Laboratories-[facility] [address] (ABNORMAL) Prothrombin Time (PT) (12/04/2021 7:19 AM CDT) [facility] gist Method Time Signature Prothrombin 35.4 [...] Laterality Blood (Blood, 12/04/2021 7:19 AM 12/05/19 22 8:03 Venous) CDT AM CDT Simran Helm P.A.-C., M.S. LAB BLOOD ADD-ON Performing Organization Address City/State/ZIP Code Phon e Number [facility] - [address] [place], [place] [address] [facility] [place] [address] Laboratories-[facility] [address] Chest with IV Contrast (12/03/2021 3:36 [...] 4, image 100 and is similar to [facility] comparison exam. Follow-up imaging may be helpful [...] CBC without Differential (12/03/2021 9:26 AM CDT) [facility] Method Time Signature Hemoglobin 10.9 (L) [...] M.S. LAB BLOOD ADD-ON Performing Organization Address City/State/[facility] Code Phon e Number [facility] - [address] [place] [address] [facility] [place] [address] Laboratories-[facility] 200 [facility] (ABNORMAL) Electrophoresis, Protein (12/03/2021 8:21 AM CDT) [facility] gist Method Time Signature Total Protein, 5.8 (L) [...] Address City/State/ZIP Code Phon e Number [facility] [address] MEJIA [place], [place] [address] [place] [address] [place] [address] Laboratory Medicine and Pathology [address] [...] 12/03/2021 DTL Black/ mL/min/BSA 9:32 AM CDT Turkish Comment: ----ADDITIONAL INFORMATION---- Estimated GFR calculated using [...] Address City/State/ZIP Code Phon e Number [facility] - [address] [place], [place] [address] [facility] [place] [address] [facility] 200 [facility] (ABNORMAL) CBC with Differential, Blood (12/03/2021 8:21 AM CDT) [facility] Method Time Signature Hemoglobin 10.2 (L) [...] M.S. LAB BLOOD ADD-ON Performing Organization Address City/[facility] Phon e Number [facility] - [address] [place], [place] [address] [place] [address] Laboratories-[facility] 200 [facility] (ABNORMAL) Prothrombin Time (PT) (12/03/2021 8:21 AM CDT) [facility] gist Method Time Signature Prothrombin 40.5 [...] M.S. LAB BLOOD ADD-ON Performing Organization Address City/[facility] Code Phon e Number [facility] - [address] [place] [address] [facility] [place] [address] Laboratories-[address] DX Chest Portable 1 View (12/03/2021 [...] drainage catheter. Small persistent basilar hydropneumothorax. Tr marítn left effusion/pleural thickening. Bibasilar atelectasis. Enlarged cardiac [...] calcification. Jaqueline Moseley M.D. IMMike DIAGNOSTIC IMAGING MA OCEDURES DX Chest Portable 1 View (2021 [...] view. Jaqueline Moseley M.D. IMG DIAGNOSTIC IMAGING MA OCEDURES MA PLEURA DRAIN PERC W IMG GUID (2021 [...] fellow participated in the procedure, and the strategic consultant was present for the entire procedure. [...] atio <1.0. All other fluids refer to [email or web address] for further inter pretive information. This test has been modified from the man estherurer's instructions. Its performance characteri stics were determined by [facility] in a manner consistent wi CLIA requirements. [...] Address City/State/ZIP Code Phon e Number [facility] - [address] [place], [place] [address] [facility] [place] [address] Laboratories-[facility] [address] MA THORACENTESIS PLEURA W IMG (2021 9:47 AM CDT) Narrative Cj Jimenez M.D. - 2021 9:47 A M CDT Jaqueline Fontanez M.D. ? 2021 ??9:49 AM Thoracentesis Date/Time: 2021 9:47 AM Performed by: Jaqueline Fontanez M.D. Authorized by: Jaqueline Fontanez M.D. Care team members present 1. Cj Jimenez M.D. PROCEDURE DETAILS Patient position: sitting Location: right posterior Intercostal space: 9th Puncture method: [id number] cathete r Number of attempts: 1 Drainage [...] fellow participated in the procedure, and the strategic consultant was present for the entire procedure. Jaqueline Moseley M.D. PROCEDURE/MINOR SURGICAL ORDERABLES Broad Range Bacteria PCR+Sequencing (2021 9:36 AM CDT) Component Value Ref Test Analysis Performed At [facility] Range Method Time Signature Broad Range No bacterial DNA detected. 12/07/2021 DTL Bacteria This test was developed and its performance characteri stics 2:15 PM CDT PCR+Sequencin determined by [facility] in a manner consistent with g CLIA requirements. This test has not been cleared or approved by the U.S. Food and Drug Administration. Specimen Anatomical Collection Method Collection Time Receive d Time (Source) Location / / Volume Laterality Pleural Fluid, 2021 9:36 AM 022 Right CDT 11:28 AM CDT Comment: Specimen Source Site: Fluid Narrative [facility] - [facility] - 12/07/2021 2:15 PM CDT Bacterial Culture: Received Bactec aerob ic and Bactec anaerobic bottles Cj Jimenez M.D. LAB MICROBIOLOGY - GENERAL O RDERABLES Performing Organization Address City/State/ZIP Code Phon e Number [facility] - [facility] [address] [place], [place] [address] [facility] [place] [address] Laboratories-[facility] [address] Glucose, Body Fluid (2021 9:36 AM CDT) athologist Signature Glucose, BF 46 See Comment [...] of infection. All other fluids refer to [email or web address] for further inter pretive information. This test has been modified from the man ufacturer's instructions. Its performance characteri stics were determined by [facility] in a manner co nsistent with CLIA [...] AND STOOLS O [place] Performing Organization Address City/[facility]/ZIP [facility] Phon e Number [facility] - [address] [place], [place] [address] [place] [address] pH, Pleural Fluid (2021 9:36 AM CDT) [facility] Method Time Signature pH, Pleural 7.27 Not Applicable [facility] 9:59 AM CDT Comment: Clinical [...] AND STOOLS O [place] Performing Organization Address City/[facility] Phon e Number [facility] - [address] [place] [address] 05 [place] [address] [facility]-[address] Fungal Culture, Routine (2021 9:36 AM CDT) [facility] Method Time Signature Fungal No growth 12/26/2021 DTL Culture, after 24 1:01 PM CDT Routine days of incubation. Specimen Anatomical Collection Method Collection Time Receive d Time (Source) Location / / Volume Laterality Fluid (Pleural 2021 9:36 AM 022 Fluid, Right) CDT 11:28 AM CDT Comment: Specimen Source Site: Fluid Narrative [facility] - [facility] - 12/26/2021 1:01 PM CDT Bacterial Culture: Received Bactec aerob ic and Bactec anaerobic bottles Cj Jimenez M.D. LAB MICROBIOLOGY - GENERAL O [place] Performing Organization Address City/[facility]/ZIP [facility] Phon e Number [facility] - [address] [place], [place] [address] [address] [place] [address] Laboratories-[facility] 200 [facility] Fungal Smear (2021 9:36 AM CDT) P athologist Signature Fungal Smear Negative. 2021 DTL 1:56 PM CDT Specimen Anatomical Collection Method Collection Time Receive d Time (Source) Location / / Volume Laterality Fluid (Pleural 2021 9:36 AM 022 Fluid, Right) CDT 11:28 AM CDT Comment: Specimen Source Site: Fluid Narrative [facility] - [facility] - 2021 1:56 PM CDT Bacterial Culture: Received Bactec aerob ic and Bactec anaerobic bottles Cj Jimenez M.D. LAB MICROBIOLOGY - GENERAL O RDERABLES Performing Organization Address City/State/ZIP Code Phon e Number [facility] - [address] [place] [address] [facility] [place] [address] [facility] 200 [facility] Cytology Non-LAMP INSPECTOR (2021 9:36 AM CDT) Component Value Ref Test Analysis Performed At Patholo gist Range Method Time Signature 12/03/2021 DTL [...] LAB SURG PATH ORDERABLES Performing Organization Address City/[facility] Phon e Number [facility] - [address] [place] [address] Laboratories-[address] Cell Count and Differential, Body Fluid (2021 9:36 AM CDT) [facility] gist Method Time Signature Fluid Type Right 2021 DH Pleural-Tho 12:45 PM CDT racentesis Gross Bloody 2021 [facility]PM Appearance 12:45 PM CDT Total Nucleated 1976 /mcL 2021 [facility] Cells 12:45 PM CDT Comment: ----REFERENCE VALUE---- Synovial: <150 /mcL Peritoneal: <500 /mcL Pleural: <500 /mcL Pericardial: <500 /mcL ----ADDITIONAL INFORMATION---- This test has been modified from the man ufacturer's instructions. Its performance characteri stics were determined by [facility] in a manner co nsistent with CLIA [...] AND STOOLS O RDERABLES Performing Organization Address [facility] Phon e Number [facility] - [address] [address] 05 [place] [address] [facility] 200 [facility] Bacterial Culture, Aerobic + Susc (2021 9:36 AM CDT) [facility] Method Time Signature Bacterial No growth 12/07/2021 DTL Culture, after 5 8:50 AM CDT Aerobic + Susc days of incubation. Specimen Anatomical Collection Method Collection Time Receive d Time (Source) Location / / Volume Laterality Fluid (Pleural 2021 9:36 AM 022 Fluid, Right) CDT 11:28 AM CDT Comment: Specimen Source Site: Fluid Narrative [facility] - 12/07/2021 8:50 AM CDT Bacterial Culture: Received Bactec aerob ic and Bactec anaerobic bottles Cj Jimenez M.D. LAB MICROBIOLOGY - GENERAL O [place] Performing Organization Address City/[facility]/ZIP Code Phon e Number [facility] [address] [place], [place] [address] [facility] [place] [address] [place] [address] [facility] Gram Stain (2021 9:36 AM CDT) [facility] Method Time Signature Gram Stain No organisms seen. 2021 DTL White blood cells present. 12:20 PM CDT Specimen Anatomical Collection Method Collection Time Receive d Time (Source) Location / / Volume Laterality Fluid (Pleural 2021 9:36 AM 022 Fluid, Right) CDT 11:28 AM CDT Comment: Specimen Source Site: Fluid Narrative [facility] [place] - 2021 12:20 PM CDT Bacterial Culture: Received Bactec aerob ic and Bactec anaerobic bottles Cj Jimenez M.D. LAB MICROBIOLOGY - GENERAL O [place] Performing Organization Address City/State/ZIP Code Phon e Number [facility] [address] [place], [place] [address] [facility] [place], [place] [address] [place] [address] Protein, Total, Body Fluid (2021 9:36 AM CDT) athologist Signature Protein, 3.2 See Comment 12/03/2021 [...] ical findings. All other fluids refer to [email or web address] for further inter pretive information. This test has been modified from the foundation engineer's instructions. Its perform ance characteristics were determined by [facility] in a manner consistent with CLIA require [...] Address City/State/ZIP Code Phon e Number [facility] - [address] [place], [place] [address] [facility] [place] [address] Laboratories-[facility] [address] Lactate Dehydrogenase (LD), Body Fluid (2021 9:36 AM CDT) [facility] Method Time Signature Lactate 343 See Comment [...] clinical findings. All other fluids refer to [email or web address] for further interpretive information. This test has been modified from the man ufacturer's instructions. Its performance characteristics were det ermined by [facility] in a manner consistent with CLIA requirements [...] Address City/State/ZIP Code Phon e Number [facility] - [address] [place], [place] [address] [facility] [place] [address] [facility] 200 [facility] Interpretation of Outside DX Chest (2021 2:07 [...] APRN, C.N.P. IMG DIAGNOSTIC IMAGING PROC EDURES Interpretation of Outside [...] Prothrombin 33.3 (H) 9.4 - 12.5 [facility] Time, P sec 1:15 AM CDT INR 3.0 0.9 - 1.1 2021 [facility] 1:15 AM CDT Comment: ----ADDITIONAL INFORMATION---- Standard intensity warfarin therapeutic range: 2.0 to 3.0 ?? High intensity warfarin therapeutic rang e: 2.5 to 3.5 Specimen Anatomical Collection Method Collection Time Receive d Time (Source) Location / / Volume Laterality Blood (Blood, 2021 1:01 AM 12/03/19 1:09 Venous) CDT AM CDT Jamal Andujar APRN, C.N.P. LAB BLOOD ADD-ON Performing Organization Address City/State/[facility] Code Phon e Number [facility] - [address] [place] [address] [address] [place] [address] [facility] 200 [facility] (ABNORMAL) Procalcitonin (2021 1:01 AM CDT) P athologist Signature Procalcitonin, 0.18 (H) <=0.08 2021 DTL S ng/mL 2:04 AM CDT Specimen Anatomical Collection Method Collection Time Receive d Time (Source) Location / / Volume Laterality Blood (Blood, 2021 1:01 AM 12/03/19 1:35 Venous) CDT AM CDT Jamal Andujar APRN, Pablo.N.P. LAB BLOOD ADD-ON Performing Organization Address City/[facility] Phon e Number [facility] - [address] [place], [place] [address] [place] [id number] [place] [address] [address] [facility] Lactate (2021 1:01 AM CDT) athologist Signature Lactate, P 1.1 0.5 - 2.2 2021 DTL mmol/L 1:48 AM CDT Specimen Anatomical Collection Method Collection Time Receive d Time (Source) Location / / Volume Laterality Blood (Blood, 2021 1:01 AM 12/03/19 1:35 Venous) CDT AM CDT Jamal Andujar APRN, C.N.P. LAB BLOOD NON ADD-ON Performing Organization Address City/[facility] [facility] Phon e Number [facility] - [address] [place], [place] [address] [place], [place] [id number] [place] [address] 200 [facility] Phosphorus Inorganic (2021 1:01 AM CDT) [...] Address City/State/ZIP Code Phon e Number [facility] - [address] [place], [place] [address] [place], [place] [address] [place] [address] Magnesium (2021 1:01 AM CDT) athologist Signature Magnesium, S 1.8 1.7 - 2.3 2021 DTL mg/dL 2:04 AM CDT Specimen Anatomical Collection Method Collection Time Receive d Time (Source) Location / / Volume Laterality Blood (Blood, 2021 1:01 AM 12/03/19 1:35 Venous) CDT AM CDT Natalie Strong APRNNDenisse LAB BLOOD ADD-ON Performing Organization Address City/State/ZIP Code Phon e Number [facility] - [address] [place], [place] [address] [facility] [place] [address] [facility] [address] (ABNORMAL) [...] 2021 DTL Black/ mL/min/BSA 1:58 AM CDT Turkish Comment: ----ADDITIONAL INFORMATION---- Estimated GFR calculated using [...] C.N.P. LAB BLOOD ADD-ON Performing Organization Address City/State/[facility] Code Phon e Number [facility] - 200 [place], [place] [address] [facility] [place] [address] [facility] 200 [facility] (ABNORMAL) CBC with Differential, Blood (2021 1:01 AM CDT) [facility] gist Method Time Signature Hemoglobin 10.1 [...] C.N.P. LAB BLOOD ADD-ON Performing Organization Address City/[facility] Code Phon e Number [facility] [address] [facility] (ABNORMAL) GGT (Gamma-Glutamyltransferase) (2021 12:57 AM CDT) Component Value Ref Test Analysis Performed At [facility] gist Range Method Time Signature Gamma 169 (H) 8 - 61 2021 DTL Glutamyltransferase U/L 2:20 PM CDT (GGT), S Specimen Anatomical Collection Method Collection Time Receive d Time (Source) Location / / Volume Laterality Blood (Blood, 2021 12:57 2021 1:48 Venous) AM CDT PM CDT Simran Helm P.A.-C., M.S. LAB BLOOD ADD-ON Performing Organization Address City/[facility] Phon e Number [address] [place] [address] documented in this encounter Visit Diagnoses [...] on Mon12/03/21 at 0800, Daily on only. Given 12/06/2021 4:03 PM CDT 0.25 [...] 1.5 mg 1.5 mg, oral, Once, On Tu12/07/21 at 1700, For 1 dose documented in this encounter Active and Recently Administered Medications Times are shown in CDT. Scheduled Medication Order 12/06/2021 12/07/2021 12/08/2021 allopurinoL tablet 100 mg (ZYLOPRIM) 0804 (Given - Pro vider: Yadi Lewis R.N.) 0802 (Given - Provider: Yadi Lewis R.N.) 0813 (Given - Provider: Anita Hill RNicholas) 100 mg, oral, Daily, First dose on [...] Lewis R.N.)2130 (Given - Provider: Yohan Edgar RBaileyNBailey) 0.25 mcg, oral, User Specified (3 times [...] Provider: Yohan Edgar R.N. - Reason: Other) 08 (Given - Provider: Yadi Lewis R.N.) 08 [...] (Given - Provider: Paty Pina M.S., R.N., Radha.NBailey)1122 (Given - Provider: Yadi Lewis R.N.)1603 (Given [...] ) 0801 (Given - Provider: Yadi Lewis R.N.)2130 (Given - Provider: Yohan Edgar R.N.) 0802 [...] (Given - Provider: Paty Pina M.S., R.N., PaulinaR.N.) 0652 (Given - Provider: Yohan lemons, R.N.) 0633 (Given - Provider: Yohan lemons, R.NBailey) 40 mg, oral, Daily before breakfast, Fir [...] (COMPLETED) 1931 (Given - Provider: Elmo Marie R.N.) intraperitoneal, [...] R.N.)2310 (New Bag - Provider: Yohan Edgar R.N.) 2.25 g, intravenous, at 100 mL/hr, Admin [...] 0808 (Not Given - Provider: Anita Hill R.N. - Reason: Patient/family refused) 17 g, oral, [...] or split tablet. May crush using the D'ElyseeCrush system. warfarin tablet 1.5 mg (COUMADIN) (COMPLETED) 171 (Given - Provider: Yadi Lewis R.N.) 1.5 mg, oral, Once, On Mon12/07/21 at 1700, For 1 dose PRN Medication Order 12/06/2021 12/07/2021 12/08/2021 calcium carbonate chewable tablet 400 mg of calcium (TUMS) 400 mg of calcium, oral, Every 2 hour MA N, heartburn, indigestion, Starting on Mon12/02/21 at 0059, Doses listed are in mg of elemental calcium. Take with food. 500 mg calcium carbonate contains 200 mg of elemental calcium. iohexoL 300 mg iodine/mL solution (OMNIPAQUE) (COMPLET ED) 1402 (Given - Provider: Glenn Spencer M.D.) Code/trauma/sedation medication, Starting on Mon12/06/21 at 1402 documented in this encounter
--- OUTSIDE RECORDS SUMMARY | 2022-04-17 15:52 | XMS_ITS | Encounter Summary ---
:1940 Author Organization [facility] Address [address] [place] [address] Care Team Providers Name Role Phone Unavailable [...] or relatives? How often do you attend latter-day or confucianism More than 4 time s per year 04/11/2022 services? Do you belong to any clubs or organizations Yes 04/11/2022 such as latter-day groups, unions, fraternal or athletic groups, or [...]
--- OUTSIDE RECORDS SUMMARY | 2022-04-17 15:52 | XMS_ITS | Encounter Summary ---
:1940 Author Organization [facility] Address [address] [place] [address] Care Team Providers Name Role Phone Unavailable [...] How often do you attend orthodoxy or lutheran More than 4 time s [...]
--- OUTSIDE RECORDS SUMMARY | 2022-04-17 15:52 | XMS_ITS | Encounter Summary ---
:1940 Author Organization [facility] Address [address] [place] [address] Care Team Providers Name Role Phone Unavailable Primary Care Provider Unavailable Encounter Details Date Type Department Care Team Description 2021 Ancillary Procedure Department of Radiology Gavin Andujar, in [facility] Natalie queen APRNN.P. [address] [facility] [address] [place] [address] [place] [address] Social History Tobacco Use Types Packs/Day Years [...] How often do you attend adventist or mosque More than 4 time s per year [...]
--- OUTSIDE RECORDS SUMMARY | 2022-04-17 15:52 | XMS_ITS | Encounter Summary ---
:[address] [facility] Address [address] [place] [address] Care Team Providers Name Role Phone Unavailable Primary Care Provider Unavailable Encounter Details Date Type Department Care Team Description 12/06/2021 Clinical Communication Division of Pulmonary Samia Gonzales, Medicine in M.D., [facility] 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
--- OUTSIDE RECORDS SUMMARY | 2022-04-17 15:52 | XMS_ITS | Encounter Summary ---
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 Cough With Hemorrhage; [place], [address] [place] [address] Shortness Of Breath; [place], [place] Dysphagia; [address] [place] [phone] Gastroesophageal Reflux Disease Without Esophagitis; [place], [place] [phone] Laparoscopic M yotomy For Achalasia [place] [id number] (Work) [phone] Social History Tobacco Use Types Packs/Day Years [...] How often do you attend spiritism or voodoo More than 4 time s [...] hasnever been biopsied. 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 He has also seen [...] BREATH POST 02/20/2019 4.05 L Final ??? G6LqnXgor 02/20/2019 98.00 % Final ??? F5RmkTvix 02/20/2019 96.00 % Final ??? PulseRest 02/20/2019 [...] PEF PRE 02/20/2019 6.09 L/s Final ??? FVD69-38% 02/20/2019 1.30 L/s Final ??? FRCPLETH PROVBASE [...] to decline. Total time 30 minutes cell vyib-ue-eeti less than 50% counseling. Ferny Apodaca M.D. [...]
--- OUTSIDE RECORDS SUMMARY | 2022-04-17 15:52 | XMS_ITS | Encounter Summary ---
:1940 Author Organization [facility] Address [address] [place] [address] Care Team Providers Name Role Phone Unavailable Primary Care Provider Unavailable Reason for Referral Outpatient (Routine) - Closed Specialty Diagnoses / Procedures Referred By Contact Refer red To Contact Pulmonary Medicine Diagnoses Empyema Pleural (HCC) [facility] Estela, M.[facility] [address] [place] [phone] Referral ID Status Reason Start Date Expiration Date Visits Requ ested Visits Authorized [id number] Closed 12/07/2021 12/07/2022 1 1 Encounter Details Date Type Department Care Team Description 12/07/2021 Clinical Communication RST HIM Maria G Adame, [address] [place] [address] Estela, M.S. [place], [place] [address] [place] [phone] [place] [address] Social History Tobacco Use Types Packs/Day Years [...] or relatives? How often do you attend presybeterian or scientologist More than 4 time s per year 04/11/2022 services? Do you belong to any clubs or organizations Yes 04/11/2022 such as presybeterian groups, unions, fraternal or athletic groups, or [...] Name Type Priority Associated Diagnoses Order S [facility] Pulmonary Medicine Outpatient Referral Routine Empyema [...]
--- OUTSIDE RECORDS SUMMARY | 2022-04-17 15:52 | XMS_ITS | Encounter Summary ---
:1940 Author Organization [facility] Address [address] [place] [address] Care Team Providers Name Role Phone Unavailable [...] How often do you attend methodist or yarsani More than 4 time s [...]
--- OUTSIDE RECORDS SUMMARY | 2022-04-17 15:52 | XMS_ITS | Encounter Summary ---
:1940 Author Organization [facility] Address [address] [place] [address] Care Team Providers Name Role Phone Unavailable Primary Care Provider Unavailable Encounter Details Date Type Department Care Team Description 2021 Clinical Communication RST [facility]ran [place] [address] [facility] Estela Mendes, M.S. [place], [place] [address] [facility] [address] [place] [phone] Social History Tobacco Use Types Packs/Day Years [...] often do you attend jehovah's witness or yazidism More than 4 time s [...] for the very basics like Not v agnelito hard 04/11/2022 food, housing, medical care, and [...]
--- OUTSIDE RECORDS SUMMARY | 2022-04-17 15:52 | XMS_ITS | Encounter Summary ---
:1940 Author Organization [facility] Address [address] [place] [address] Care Team Providers Name Role Phone Unavailable Primary Care Provider Unavailable Reason for Visit Outpatient (Routine) - Closed Specialty Diagnoses / Referred By Referred To Cont act Procedures Contact Gastroenterology and Mar[place] Trang sanchez Hepatology Laura GranadosB.S. 200 [place] [address] Referral ID Status Reason Start Date Expiration Date Visits Requ ested Visits Authorized [id number] Closed 02/14/2019 02/14/2020 1 1 Encounter Details Date Type Department Care Team Description 02/20/2019 Office Visit Division of Kelechi Werner ([place] [facility] in [place], [place]) [place], [place] Ph.D. [address] [place] [phone] Social History Tobacco Use Types Packs/Day [...] How often do you attend latter-day or synagogue More than 4 time s per year [...]
--- OUTSIDE RECORDS SUMMARY | 2022-04-17 15:53 | XMS_ITS | Encounter Summary ---
:1940 Author Organization [facility] Address [address] [place] [address] Care Team Providers Name Role Phone Unavailable [...] How often do you attend catholic or shinto More than 4 time s [...]
--- OUTSIDE RECORDS SUMMARY | 2022-04-17 15:53 | XMS_ITS | Encounter Summary ---
:1940 Author Organization [facility] Address [address] [place] [address] Care Team Providers Name Role Phone Unavailable Primary Care Provider Unavailable Reason for Referral Outpatient (Routine) - Closed Specialty Diagnoses / Procedures Referred By Contact Refer red To Contact Diagnoses Guillermo Ayers M.D., [facility] Procedures [place] Esophagram CO XR ESOPHAGUS HC XR ESOPHAGUS CO XR ESOPHAGUS Ph.D. 200 [place] [address] Referral ID Status Reason Start Date Expiration Date Visits Requ ested Visits Authorized [id number] Closed 12/17/2018 12/17/2019 1 1 Reason for Visit Outpatient (Routine) - Closed Specialty Diagnoses / Procedures Referred By Contact Refer red To Contact Diagnoses Guillermo Ayers M.D., [facility] Procedures [place] Esophagram CO XR ESOPHAGUS HC XR ESOPHAGUS CO XR ESOPHAGUS Ph.D. 200 [place] [address] Referral ID Status Reason Start Date Expiration Date Visits Requ ested Visits Authorized [id number] Closed 12/17/2018 12/17/2019 1 1 Encounter Details Date Type Department Care Team Description 02/15/2019 Hospital Encounter Department of Radiology, Cinthya Werner, eryn Freeman M.D., Ph.D. [address] [phone] Social History Tobacco Use Types Packs/Day [...] How often do you attend adventism or jain More than 4 time s per year 04/11/2022 services? Do you belong to any clubs or organizations Yes 04/11/2022 such as adventism groups, unions, fraBacchus Vascular or athletic groups, or school groups? How [...]
--- OUTSIDE RECORDS SUMMARY | 2022-04-17 15:53 | XMS_ITS | Encounter Summary ---
:1940 Author Organization [facility] Address [address] [place] [address] Care Team Providers Name Role Phone Unavailable Primary Care Provider Unavailable Encounter Details Date Type Department Care Team Description 07/29/2003 - Hospital Encounter HX RST SLEEP FLOOR Shivam, 08/05/2003 PRACTICE Juan Pablo Purdy M.D. [address] [place] [address] Social History Tobacco Use Types Packs/Day Years [...] How often do you attend jew or quaker More than 4 time s per year [...] or slept in a usp (including now)? Sex Assigned at Date Recorded Male 04/11/2022 12:05 PM CDT documented as of this encounter Plan of Treatment Not on filedocumented as of this encounter Visit Diagnoses Not on filedocumented in this encounter
--- OUTSIDE RECORDS SUMMARY | 2022-04-17 15:53 | XMS_ITS | Encounter Summary ---
:1940 Author Organization [facility] Address [address] [place] [address] Care Team Providers Name Role Phone Unavailable [...] often do you attend oriental orthodox or evangelical More than 4 time s per year [...] or slept in a penitentiary (including now)? Sex Assigned at Date Recorded Male 04/11/2022 12:05 PM CDT documented as of this encounter Plan of Treatment Not on filedocumented as of this encounter Procedures Procedure Name Priority Date/Time Associated Comments Diagnosis US RETROPERITONEUM Routine 06/24/2002 9:19 Result s for this LIMITED PLUS AM MICROECONOMICS PROFESSOR procedure are i n RETROPERITONEUM LIMITED the results DOPPLER section. DX OUTSIDE IMAGE Routine 06/24/2002 6:38 Results for this INTERPRETATION AM MICROECONOMICS PROFESSOR procedure are in the results section. DX CHEST POST PICC Routine 06/21/2002 10:13 Resul ts for this PLACEMENT 1 VIEW PM MICROECONOMICS PROFESSOR procedure a re in the results section. DX CHEST POST PICC Routine 06/21/2002 6:11 Result s for this PLACEMENT 1 VIEW PM MICROECONOMICS PROFESSOR procedure a re in the results section. HXGENERAL PATHOLOGY Routine 06/21/2002 4:19 Resul ts for this REPORT PM MICROECONOMICS PROFESSOR procedure are i n the results section. ECG Routine 06/21/2002 10:38 Results for this AM MICROECONOMICS PROFESSOR procedure are i n the results section. CT ORBITS AND SELLA Routine 06/21/2002 8:27 Resul ts for this WITHOUT IV CONTRAST AM MICROECONOMICS PROFESSOR procedur e are in the results section. ECHOCARDIOGRAM Routine 06/20/2002 8:35 AM MICROECONOMICS PROFESSOR DX OUTSIDE IMAGE Routine 06/20/2002 6:32 Results for this INTERPRETATION AM MICROECONOMICS PROFESSOR procedure are in the results section. HXGENERAL PATHOLOGY Routine 06/19/2002 10:26 Resu lts for this REPORT AM MICROECONOMICS PROFESSOR procedure are i n the results section. HXPHYS SURG BLD ORDER Routine 06/18/2002 10:00 Re sults for this PM MICROECONOMICS PROFESSOR procedure are i n the results section. US ABDOMEN COMPLETE Routine 06/18/2002 9:39 Resul ts for this AM MICROECONOMICS PROFESSOR procedure are i n the results section. MR CERVICAL AND THORACIC Routine 06/18/2002 8:24 Results for this WITHOUT AND WITH IV AM MICROECONOMICS PROFESSOR procedur e are in CONTRAST the results section. ECG Routine 06/16/2002 9:34 Results for this PM MICROECONOMICS PROFESSOR procedure are i n the results section. DX CHEST AP OR PA AND Routine 06/16/2002 5:55 Res ults for this LATERAL 2 VIEWS PM MICROECONOMICS PROFESSOR procedure ar e in the results section. CT HEAD WITHOUT IV Routine 06/16/2002 4:28 Result s for this CONTRAST PM MICROECONOMICS PROFESSOR procedure are i n the results section. documented in this encounter Results US Retroperitoneum Limited plus Retroperitoneum Limited Doppler (06/24/2002 9:19 AM MICROECONOMICS PROFESSOR) Anatomical Region Laterality Modality Abdomen, Pelvis N/A Ultrasound Specimen (Source) Anatomical Collection Method Collection Time Re ceived Time Location / / Volume Laterality 06/24/2002 9:19 AM MICROECONOMICS PROFESSOR Narrative 06/24/2002 11:05 AM MICROECONOMICS PROFESSOR 24-Jun-2002 09:19:00 ??Exam: US Retro Lmtd w Doppler Lmtd Indications: INSUFFICIENCY^[id number] ORIGINAL REPORT - 24-Jun-2002 11:05:00 The [...] Electronically signed by: ?? Aiden Lafleur MD [id number] ([id number]) 24-Jun-20 02 11:05 Procedure Note Provider, Historical - 11/24/2017Formatt ing of this note might be different from the original. 24-Jun-2002 09:19:00 Exam: US Retro Lmtd w Doppler Lmtd Indications: INSUFFICIENCY^[id number] ORIGINAL REPORT - 24-Jun-2002 11:05:00 The [...] Dia.210 Electronically signed by: Aiden Lafleur MD [id number] [id number]) 24-Jun-20 02 11:05 Jamal BAKER US PROCEDURES DX Outside Image Interpretation (06/24/2002 6:38 AM MICROECONOMICS PROFESSOR) Anatomical Region Laterality Modality N/A Radiographic Imaging Specimen (Source) Anatomical Collection Method Collection Time Re ceived Time Location / / Volume Laterality 06/24/2002 6:38 AM MICROECONOMICS PROFESSOR Narrative 06/24/2002 9:30 AM MICROECONOMICS PROFESSOR 24-Jun-2002 06:38:00 ??Exam: Interp of OUTSIDE X-RAY [...] kidneys on the submitted images. ?? (06-24-02) ??(991) Electronically signed by: ?? Sena Tsang ??24-Jun-2002 0 9:30 Procedure Note Peng Santiago M.D., Ph.D. - 8 24-Jun-2002 06:38:00 Exam: Interp of OUT SIDE X-RAY Indications: ORIGINAL REPORT - 24-Jun-2002 09:30:00 Outside MRA of the renal arteries perfor [facility] 06-04-01. The examination is moderately limited. Visualization [...] the kidneys on the submitted images. (06-24-02) (609) Electronically signed by: Sena Tsang 24-Jun-2002 09: 30 Zeb Cotton M.D. IMG DIAGNOSTIC IMAGING PROCE DURES DX Chest Post PICC Placement 1 View (06/21/2002 10:13 PM MICROECONOMICS PROFESSOR) Anatomical Region Laterality Modality Chest N/A Radiographic Imaging Specimen (Source) Anatomical Collection Method Collection Time Re ceived Time Location / / Volume Laterality 06/21/2002 10:13 PM MICROECONOMICS PROFESSOR Narrative 06/22/2002 8:19 AM MICROECONOMICS PROFESSOR 21-Jun-2002 22:13:00 ??Exam: Chest-PICC Indications: Right PICC Tip Placement ORIGINAL REPORT - 21-Jun-2002 22:45:00 Right PICC tip in the proximal right sub clavian vein. Electronically signed by: ?? Jossy Valdes MD [phone] ([id number]) 21-Jun-20 02 22:45 I have reviewed the films/images and agr ee with the above interpretation. Electronically signed by: ?? Miki ??Martha MOISE. ??[phone] 22-Jun-2002 0 8:19 Procedure Note Leroy Thomas M.D. - 11/24/2017Formatt ing of this note might be different from the original. 21-Jun-2002 22:13:00 Exam: Chest-PICC Indications: Right PICC Tip Placement ORIGINAL REPORT - 21-Jun-2002 22:45:00 Right PICC tip in the proximal right sub clavian vein. Electronically signed by: Jossy Valdes MD [phone] ([id number]) 21-Jun-20 02 22:45 I have reviewed the films/images and agr ee with the above interpretation. Electronically signed by: Miki Thomas MD. [phone] 22-Jun-2002 08:19 Jamal Camejo M.D. IMG DIAGNOSTIC IMAGING PROCE DURES DX Chest Post PICC Placement 1 View (06/21/2002 6:11 PM MICROECONOMICS PROFESSOR) Anatomical Region Laterality Modality Chest N/A Radiographic Imaging Specimen (Source) Anatomical Collection Method Collection Time Re ceived Time Location / / Volume Laterality 06/21/2002 6:11 PM MICROECONOMICS PROFESSOR Narrative 06/22/2002 12:05 PM MICROECONOMICS PROFESSOR 21-Jun-2002 18:11:00 ??Exam: Chest-PICC Indications: RIGHT PICC TIP PLACED ORIGINAL REPORT - 21-Jun-2002 19:03:00 Right PICC tip in RA. Cardiac enlargemen t. Electronically signed by: ?? Alivia Nur M.D. [phone] 21-Jun-2002 19:03 I have reviewed the films/images and agr ee with the above interpretation. Electronically signed by: ?? Candida Roberto MD [phone] 22-Jun-2002 12:05 Procedure Note Hiram Roberto M.D. [...] interpretation. Electronically signed by: Candida Roberto MD [phone] 22-Jun-2002 12:05 Jamal Camejo M.D. IMG DIAGNOSTIC IMAGING PROCE SUKUMAR Hx general Pathology Report (06/21/2002 4:19 PM MICROECONOMICS PROFESSOR) Specimen Anatomical Collection Method Collection Time Receive d Time (Source) Location / / Volume Laterality 06/21/2002 4:19 PM 2 4:19 MICROECONOMICS PROFESSOR PM MICROECONOMICS PROFESSOR Narrative [facility] - 06/21/2002 4:19 PM MICROECONOMICS PROFESSOR 21Jun2002 General Biopsy Primary Physician: ?Cheng navarro Jr., M.D. ?([id number]) Requested By: ? Florentin lindquist M.D. ?? TISSUE DESCRIPTION: ?? A1. Bulb/second portion duodenum sma ll bowel - (5 pieces 0.2 - 0.3 cm. in diameter). B1. Lower ?? third esophagus - (4 pieces 0.1 - 0. 2 cm. in diameter). ?? [id number] A1, B1 ?? DIAGNOSIS: ?? 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 ?? B) Esophagus, distal, endoscopic bio psy: ??Luminal fibrinoinflammatory exudate consistent with ?? nearby ulcer/erosion site, and hyper plastic cardiac-type mucosa. ??No fungi (GMS stain) or ?? viral inclusions are identified. ?? [id number] ?Rahel C. Chilo, M.D.:jnrain Procedure Note 11/11/2017 21Jun2002 General Biopsy Primary Physician: Jr Bailey Reyes M.D. ([id number]) Requested By: Florentin West M.D. TISSUE DESCRIPTION: A1. Bulb/second portion duodenum small bowel - (5 pieces 0.2 - 0.3 cm. in diameter). B1. Lower third esophagus - (4 pieces 0.1 - 0.2 c m. in diameter). [id number] A1, B1 DIAGNOSIS: A) Small bowel, duodenum, bulb and seco nd portion mass, endoscopic biopsy: Heterotopic gastric fundic-type mucosa. B) Esophagus, distal, endoscopic biopsy : Luminal fibrinoinflammatory exudate consistent with nearby ulcer/erosion site, and hyperpla stic cardiac-type mucosa. No fungi (GMS stain) or viral inclusions are identified. 24Jun2002 Rahel Woo M.D.:jns Florentin Giles M.D. LAB PATHOLOGY/CYTOLOGY ORDERABLES Performing Organization Address City/State/ZIP Code Phon e Number [facility] - [address] [address] 05 [facility] ECG 12 Lead (06/21/2002 10:38 AM MICROECONOMICS PROFESSOR) Specimen (Source) Anatomical Collection Method Collection Time Re ceived Time Location / / Volume Laterality 06/21/2002 10:38 AM MICROECONOMICS PROFESSOR [facility] RADIOLOGY SYSTEM - 06/21/2002 10:59 AM MICROECONOMICS PROFESSOR 21Jun2002 10:38 VENTRICULAR RATE 64 Normal sinus rhythm Leftward axis When compared with ECG of 16-JUN-2002 21 :34, No significant change was found [id number]^EVERT ??^JONATHAN Procedure Note Jonathan Darden M.D. - 11/13/2017Formatt ing of this note might be different from the original. 21Jun2002 10:38 VENTRICULAR RATE 64 Normal sinus rhythm Leftward axis When compared with ECG of 16-JUN-2002 21 :34, No significant change was found [id number]^EVERT PIKE Historical Provider ECG ORDERABLES Performing Organization Address City/[facility]/ZIP Code Phon e Number [facility] [address] [place] [address], U SA [address] Orbits and Sella without IV Contrast (06/21/2002 8:27 AM MICROECONOMICS PROFESSOR) Anatomical Region Laterality Modality Head N/A Computed Tomography Specimen (Source) Anatomical Collection Method Collection Time Re ceived Time Location / / Volume Laterality 06/21/2002 8:27 AM MICROECONOMICS PROFESSOR Narrative 06/21/2002 11:48 AM MICROECONOMICS PROFESSOR 21-Jun-2002 08:27:00 ??Exam: CT PF/Sella/Orbit wo Indications: [...] ?? Dia.450 ?? Electronically signed by: ?? uRbi Umanzor MD. ??[id number] 21-Jun-2002 11:48 Procedure Note [...] IMMike CT PROCEDURES Echocardiogram (06/20/2002 8:35 AM MICROECONOMICS PROFESSOR) Anatomical Region Laterality Modality Echocardiography Specimen (Source) Anatomical Collection Method Collection Time Re ceived Time Location / / Volume Laterality 06/20/2002 8:35 AM MICROECONOMICS PROFESSOR Historical Provider CV ECHO PROCEDURES DX Outside Image Interpretation (06/20/2002 6:32 AM MICROECONOMICS PROFESSOR) Anatomical Region Laterality Modality N/A Radiographic Imaging Specimen (Source) Anatomical Collection Method Collection Time Re ceived Time Location / / Volume Laterality 06/20/2002 6:32 AM MICROECONOMICS PROFESSOR Narrative 06/24/2002 10:40 AM MICROECONOMICS PROFESSOR 20-Jun-2002 06:32:00 ??Exam: Interp of OUTSIDE X-RAY [...] of the examination is negative. ?? (06-24-02) ??(257) Electronically signed by: ?? Sena Tsang ??24-Jun-2002 [...] Remainder of the examination is negative. (06-24-02) (388) Electronically signed by: Sena Tsang 8-24-Jun-2002 10: 40 Historical Provider IMG DIAGNOSTIC IMAGING LINDSEY Carter general Pathology Report (06/19/2002 10:26 AM MICROECONOMICS PROFESSOR) Specimen Anatomical Collection Method Collection Time Receive d Time (Source) Location / / Volume Laterality 06/19/2002 10:26 06/19/2002 AM MICROECONOMICS PROFESSOR 10:26 AM MICROECONOMICS PROFESSOR Narrative [facility] - 06/19/2002 10:26 AM MICROECONOMICS PROFESSOR 19Jun2002 Surgical Pathology Requested By: ? Zeb Cotton M.D. ?([id number]) ? Melecio Alfaro M.D. ?? TISSUE DESCRIPTION: ?? Tissue from brain (right frontal reg ion--2.0 x 2.0 x 0.3 cm in aggregate and 4.0 x 3.0 x 1.0 ?? cm in aggregate) ?? [id number] A1, A2, A3, A4, A5, A6 ?? DIAGNOSIS: ?? Brain, right frontal, biopsy: ??Orga nizing bacterial abscess. ??Gram stain demonstrates coccal ?? organisms. ??Stains for fungi are ne gative. ??Stains for mycobacteria (auramine rhodamine) show ?? rare bacilli that may represent cont aminants. ?? 21Jun2002 ?Zuleyma Millard M.D.:skp ?? PRELIMINARY FROZEN SECTION CONSULTAT ION: ?? Organizing abscess. ??Hold over. Procedure Note 11/11/2017 19Jun2002 Surgical Pathology Requested By: Zeb Cotton M.D. ( [id number]) Melecio Alfaro M.D. TISSUE DESCRIPTION: Tissue from brain (right frontal region --2.0 x 2.0 x 0.3 cm in aggregate and 4.0 x 3.0 x 1.0 cm in aggregate) [id number] A1, A2, A3, A4, A5, A6 DIAGNOSIS: Brain, right frontal, biopsy: Organizin g bacterial abscess. Gram stain demonstrates coccal organisms. Stains for fungi are negativ e. Stains for mycobacteria (auramine rhodamine) show rare bacilli that may represent contami nants. [id number] Zuleyma Millard M.D.:mirela PRELIMINARY FROZEN SECTION CONSULTATION : Organizing abscess. Hold over. Zeb Cotton M.D. LAB PATHOLOGY/CYTOLOGY ORDER SHON Performing Organization Address [facility] Phon e Number [facility] - [address] [place] [address] [facility] HX phys Surg Bld Order (06/18/2002 10:00 PM MICROECONOMICS PROFESSOR) Specimen Anatomical Collection Method Collection Time Receive d Time (Source) Location / / Volume Laterality 06/18/2002 10:00 06/18/2002 PM MICROECONOMICS PROFESSOR 10:55 PM MICROECONOMICS PROFESSOR Narrative [facility] - 06/18/2002 10:00 PM MICROECONOMICS PROFESSOR 18 Jun 2002 ?[id number] ? Ro ?22:00 ?? Phys Surg Bld Order: ?ABO/RH ? O POS ?Antibody Screen ?N eg ? Procedure Note 12/06/2017 18 Jun 2002 [id number] Ro 22:00 Phys Surg Bld Order: ABO/RH O POS Antibody Screen Neg Historical Provider LAB HISTORICAL ORDERS Performing Organization Address [facility] Phon e Number [facility] - [address] [place] [address] [facility] US Abdomen Complete (06/18/2002 9:39 AM MICROECONOMICS PROFESSOR) Anatomical Region Laterality Modality Abdomen N/A Ultrasound Specimen (Source) Anatomical Collection Method Collection Time Re ceived Time Location / / Volume Laterality 06/18/2002 9:39 AM MICROECONOMICS PROFESSOR Narrative 06/18/2002 12:23 PM MICROECONOMICS PROFESSOR 18-Jun-2002 09:39:00 ??Exam: US Abdomen Complete Indications: r/o metastases^[id number] ?? do2 -300 ORIGINAL REPORT - 18-Jun-2002 [...] left measuring 10.4cm and the right 10.2cm gqkh-ze-zuuk. Normal caliber abdo deion aorta. Examination is otherwise negative. ?? ELECTRONIC IMAGES ONLY--NO FILMS Ind: [id number] ?? Dia.120 ?? Electronically signed by: ?? Arvin Bland M.D. [id number] [id number]) 18-Jun-20 02 12:23 Procedure Note Chava Bland M.D. - 11/24/2017Formatti ng of this note might be different from the original. 18-Jun-2002 09:39:00 Exam: US Abdomen Co mplete Indications: r/o metastases^[id number] do2-30 0 ORIGINAL REPORT - 18-Jun-2002 12:23:00 [...] left measuring 10.4cm and the right 10.2cm tsjp-mi-bviv. Normal caliber abdominal aorta. Examination is otherwise negative. ELECTRONIC IMAGES ONLY--NO FILMS Ind: [id number] Dia.120 Electronically signed by: Arvin Bland M.D. [id number] ([id number]) 18-Jun-20 02 12:23 Zacarias L Ry M.D. IMG US PROCEDURES MR Cervical And Thoracic Without And With Iv Contrast (06/18/2002 8:24 AM MICROECONOMICS PROFESSOR) Anatomical Region Laterality Modality Magnetic Resonance Specimen (Source) Anatomical Collection Method Collection Time Re ceived Time Location / / Volume Laterality 06/18/2002 8:24 AM MICROECONOMICS PROFESSOR Narrative 06/18/2002 10:14 AM MICROECONOMICS PROFESSOR 18-Jun-2002 08:24:00 ??Exam: MRI CSP & THSP [...] PROCEDURES ECG 12 Lead (06/16/2002 9:34 PM MICROECONOMICS PROFESSOR) Specimen (Source) Anatomical Collection Method Collection Time Re ceived Time Location / / Volume Laterality 06/16/2002 9:34 PM MICROECONOMICS PROFESSOR [facility] RADIOLOGY SYSTEM - 06/17/2002 5:48 AM [facility] 16Jun2002 21:34 VENTRICULAR RATE 61 Normal sinus rhythm Left axis deviation No previous ECGs available [id number]^ALVERTO ??^ACE Procedure Note Ace Ralgand M.D. - 11/13/2017Forma tting of this note might be different from the original. 16Jun2002 21:34 VENTRICULAR RATE 61 Normal sinus rhythm Left axis deviation No previous ECGs available [id number]^ALVERTO MOISE^ACE Historical Provider ECG ORDERABLES Performing Organization Address City/State/ZIP Code Phon e Number [facility] [address] [place] [address], U SA DX Chest AP or PA and Lateral 2 Views (06/16/2002 5:55 PM MICROECONOMICS PROFESSOR) Anatomical Region Laterality Modality Chest N/A Radiographic Imaging Specimen (Source) Anatomical Collection Method Collection Time Re ceived Time Location / / Volume Laterality 06/16/2002 5:55 PM MICROECONOMICS PROFESSOR Narrative 06/17/2002 2:58 PM [facility] 16-Jun-2002 17:55:00 ??Exam: Chest-- 2 Views Indications: HERB ORIGINAL REPORT - 16-Jun-2002 18:18:00 Tiny amount of fluid or pleural thickeni ng left base. Calcified granuloma right upper lung. Electronically signed by: ?? Alcira Raya MD 16-Jun-2002 18:18 I have reviewed the films/images and agr ee with the above interpretation. Electronically signed by: ?? B.F. ??King JOSE MARIA. ?? [phone] 17-Jun-2002 14 :58 Procedure Note Navneet Gomez M.D. - 11/24/2017Format ting of this note might be different from the original. 16-Jun-2002 17:55:00 Exam: Chest-- 2 Vie ws Indications: HERB ORIGINAL REPORT - 16-Jun-2002 18:18:00 Tiny amount of fluid or pleural thickeni ng left base. Calcified granuloma right upper lung. Electronically signed by: Alcira Raya MD 16-Jun-2002 18:18 I have reviewed the films/images and agr ee with the above interpretation. Electronically signed by: Lesly Gomez MD. [phone] 17-Jun-2002 14:58 Lizz Avila M.D. IMMike DIAGNOSTIC IMAGING PROCE SUKUMAR CT Head without IV Contrast (06/16/2002 4:28 PM MICROECONOMICS PROFESSOR) Anatomical Region Laterality Modality Head N/A Computed Tomography Specimen (Source) Anatomical Collection Method Collection Time Re ceived Time Location / / Volume Laterality 06/16/2002 4:28 PM MICROECONOMICS PROFESSOR Narrative 06/17/2002 9:16 AM MICROECONOMICS PROFESSOR 16-Jun-2002 16:28:00 ??Exam: CT Head wo Indications: [...]
--- OUTSIDE RECORDS SUMMARY | 2022-04-17 15:53 | XMS_ITS | Encounter Summary ---
:1940 Author Organization [facility] Address [address] [place] [address] Care Team Providers Name Role Phone Unavailable Primary Care Provider Unavailable Reason for Visit Reason Onset Date Comments Esophageal 12/14/2018 pre orders Encounter Details Date Type Department Care Team Description 12/14/2018 Clinical Division of Devaughn Werner (pre Communication Gastroenterology in [place], [facility]) [place], [place] Ta., Ph.D. [address] [place] [address] Social History Tobacco Use Types Packs/Day [...] How often do you attend adventism or restoration More than 4 time s [...]
--- OUTSIDE RECORDS SUMMARY | 2022-04-17 15:53 | XMS_ITS | Encounter Summary ---
:1940 Author Organization [facility] Address [address] [place] [address] Care Team Providers Name Role Phone Unavailable Primary Care Provider Unavailable Reason for Visit Outpatient (Routine) - Closed Specialty Diagnoses / Procedures Referred By Contact Refer red To Contact Pulmonary Medicine Diagnoses Achalasia Cough With Hemorrhage Shortness Of Breath Dysphagia Gastroesophageal Reflux Disease Without Esophagitis Laparoscopic Myotomy For Achalasia Status Post Chronic Kidney Disease Stage 4 Glomerular Filtration Rate 15-29 ([facility]) [facility] Laura GranadosB.S. [address] [place] [address] Referral ID Status Reason Start Date Expiration Date Visits V isits Requested Authorized [id number] Closed Specialty 02/14/2019 02/14/2020 1 1 Services Required Encounter Details Date Type Department Care Team Description 02/20/2019 Comprehensive Visit Division of Feroz Bo a; Pulmonary Jesu Mendes, Cough With He morrhage; Medicine in M.D. Shortness Of Breath; [address] Dysphagia; [place], [place] Gastroesophageal Reflux Dise ase Without Esophagitis; [address] [place] [phone] Laparoscopic Myotomy For Achalasia Statu s Post; [place], [place] [phone] Chronic Kidney Disease Stage 4 Glomerular Filtration Rate 15-29 ([facility]) [id number] (Work) [phone] Social History Tobacco Use Types Packs/Day Years [...] How often do you attend christian or sikhism More than 4 time s per year 04/11/2022 services? Do you belong to any clubs or organizations Yes 04/11/2022 such as christian groups, unions, fraQSecure or athletic groups, or school groups? How [...] PFT's-mild restriction with TLC 66% predicted. Chest q-qnd-lqpmbuwhu patchy infiltrate and atelectasis with prominent central [...]
--- OUTSIDE RECORDS SUMMARY | 2022-04-17 15:53 | XMS_ITS | Encounter Summary ---
:1940 Author Organization [facility] Address [address] [place] [address] Care Team Providers Name Role Phone Unavailable Primary Care Provider Unavailable Encounter Details Date Type Department Care Team Description 02/11/2019 Clinical Communication Division of [facility] eryn Li M.D.[place], [place] Ph.D. [address] [place] [address] Social History Tobacco Use Types Packs/Day [...] or relatives? How often do you attend nondenominational or protestant More than 4 time s per year 04/11/2022 services? Do you belong to any clubs or organizations Yes 04/11/2022 such as nondenominational groups, unions, fraternal or athletic groups, or [...] or slept in a residential (including now)? Sex Assigned at Date Recorded Male 04/11/2022 12:05 PM CDT documented as of this encounter Plan of Treatment Not on filedocumented as of this encounter Visit Diagnoses Not on filedocumented in this encounter
--- OUTSIDE RECORDS SUMMARY | 2022-04-17 15:53 | XMS_ITS | Encounter Summary ---
:1940 Author Organization [facility] Address [address] [place] [address] Care Team Providers Name Role Phone Unavailable [...] How often do you attend baptism or mosque More than 4 time s [...] or slept in a snf (including now)? Sex Assigned at Date Recorded Male 04/11/2022 12:05 PM CDT documented as of this encounter Plan of Treatment Not on filedocumented as of this encounter Visit Diagnoses Not on filedocumented in this encounter
--- OUTSIDE RECORDS SUMMARY | 2022-04-17 15:53 | XMS_ITS | Encounter Summary ---
:1940 Author Organization [facility] Address [address] [place] [address] Care Team Providers Name Role Phone Unavailable Primary Care Provider Unavailable Encounter Details Date Type Department Care Team Description 02/14/2019 Hospital Encounter Department of Marilin, Achalasi a; Radiology, Boaz Subhankar, Cough With H emorrhage; [facility]; [facility]; [place] Gastroesophageal Reflux Dise ase Without Esophagitis; [address] [facility] Laparoscopic Myotomy For Ach alasia Status Post; [place], [place] Chronic Kidney Disease Stage 4 Glomerular Filtration Rate 15-29 ([facility]) [id number] Social History Tobacco Use Types Packs/Day Years [...] How often do you attend yazdanism or restorationist More than 4 time s [...] PA AND LATERAL 2 VIEWS Procedure Note Jhon Root M.D. - 02/14/2019Formattin g of this [...] mid to lower thoracic ve rtebral bodies. Subhankar Marilin M.B.B.S. IMG DIAGNOSTIC IMAGING PROCEDURES documented in this encounter Visit Diagnoses Diagnosis Achalasia Cough With Hemorrhage Shortness Of Breath Dysphagia Gastroesophageal Reflux Disease Without Esophagitis Laparoscopic Myotomy For Achalasia Statu s Post Chronic Kidney Disease Stage 4 Glomerula r Filtration Rate 15-29 (HCC) documented in this encounter
--- OUTSIDE RECORDS SUMMARY | 2022-04-17 15:53 | XMS_ITS | Encounter Summary ---
:1940 Author Organization [facility] Address [address] [place] [address] Care Team Providers Name Role Phone Unavailable Primary Care Provider Unavailable Encounter Details Date Type Department Care Team Description 02/14/2019 Hospital Encounter Department of Marilin, Achalasi a; Laboratory Medicine Chicohankar, Cough Wi th Hemorrhage; and Pathology, M.B.B.S. Shortness Of Breath; [facility], in Dysphagi a; [facility] Gastroesophagea l Reflux Disease Without Esophagitis; [place] Laparoscopic Myotomy For Ach alasia Status Post; [address] [facility] Chronic Kidney Disease Stage 4 Glomerular Filtration Rate 15-29 (H[place]) [place] [address] Social History Tobacco Use Types Packs/Day Years [...] How often do you attend orthodox or mandaen More than 4 time s [...] Prothrombin Time (PT/INR) (02/14/2019 10:20 AM CDT) [facility] Method Time Signature Prothrombin 15.1 (H) 9.4 [...] Address City/State/ZIP Code Phon e Number [facility] - [address] [place] [address] [facility] [place] (ABNORMAL) Alkaline Phosphatase, Total and Isoenzymes (02/14/2019 10:20 AM CDT) [facility] Method Time Signature Alkaline 302 (H) [...] Venous) AM CDT 10:41 AM CDT Narrative [facility] - 02/15/2019 12:05 PM CDT Specimen Information: Specimen ID: [id number] Specimen Type: Blood Specimen Collection Start Date: 02/15/20 10:20 AM Specimen Received Date: 02/14/2019 10:41 AM Specimen ID: [id number] Specimen Type: Blood Specimen Collection Start Date: 02/15/20 10:20 AM Specimen Received Date: 02/14/2019 11:22 AM Darwin RicoSBailey LAB BLOOD NON ADD-ON Performing Organization Address City/[facility] Phon e Number [facility] - [address] (ABNORMAL) PTH (Parathyroid Hormone) (02/14/2019 10:20 AM CDT) Analysis Performed At Patho logist Time Signature Parathyroid 103 (H) 15 - 65 02/14/2019 Hormone (PTH), S pg/mL 12:03 PM CDT Specimen Anatomical Collection Method Collection Time Receive d Time (Source) Location / / Volume Laterality Blood (Blood, 02/14/2019 10:20 02/14/2019 Venous) AM CDT 10:41 AM CDT Darwin SanchezBBaileyS. LAB BLOOD ADD-ON Performing Organization Address City/[facility]/ZIP Code Phon e Number [facility] - [address] 25-Hydroxyvitamin D2 and D3 (02/14/2019 10:20 [...] and its performa nce characteristics determined by [facility] in a manner consistent with CLIA requirements. This test has not been cleared or approved by the [place] d and Drug Administration. Specimen Anatomical Collection Method Collection Time Receive d Time (Source) Location / / Volume Laterality Blood (Blood, 02/14/2019 10:20 02/14/2019 1:36 Venous) AM CDT PM CDT Darwin Giles LAB BLOOD ADD-ON Performing Organization Address City/[facility]/ZIP Code Phon e Number [facility] [address] [address] 05 [facility] Uric Acid (02/14/2019 10:20 AM CDT) P athologist Signature Uric Acid, S 6.2 3.7 - 8.0 02/14/2019 mg/dL 12:03 PM CDT Specimen Anatomical Collection Method Collection Time Receive d Time (Source) Location / / Volume Laterality Blood (Blood, 02/14/2019 10:20 02/14/2019 Venous) AM CDT 10:41 AM CDT Darwin RicoSBailey LAB BLOOD ADD-ON Performing Organization Address City/State/ZIP Code Phon e Number [facility] - [address] [place] [address] [facility] [place] (ABNORMAL) CBC with Differential (02/14/2019 10:20 AM [...] Address City/State/ZIP Code Phon e Number [facility] - [address] [place] [address] [facility] [place] (ABNORMAL) Renal Function Panel (02/14/2019 10:20 AM [...] >=60 02/14/2019 Black/ mL/min/BSA 12:03 PM CDT Djiboutian Comment: ----ADDITIONAL INFORMATION---- Estimated GFR calculated using [...] Address City/State/ZIP Code Phon e Number [facility] - [address] [place], [place] [address] [facility] [place] documented in this encounter Visit Diagnoses Diagnosis Achalasia Cough With Hemorrhage Shortness Of Breath Dysphagia Gastroesophageal Reflux Disease Without Esophagitis Laparoscopic Myotomy For Achalasia Statu s Post Chronic Kidney Disease Stage 4 Glomerula r Filtration Rate 15-29 (HCC) documented in this encounter
--- OUTSIDE RECORDS SUMMARY | 2022-04-17 15:53 | XMS_ITS | Encounter Summary ---
:1940 Author Organization [facility] Address [address] [place] [address] Care Team Providers Name Role Phone Unavailable Primary Care Provider Unavailable Encounter Details Date Type Department Care Team Description 02/14/2019 Hospital Encounter Department of Marilin, Achalasi a; Radiology, Danny Granados, Cough With Hemorrhage; Building, [facility]; [facility]; [place] Gastroesophageal Reflux Dise ase Without Esophagitis; [address] [facility] Laparoscopic Myotomy For Ach alasia Status Post; [place], [place] Chronic Kidney Disease Stage 4 Glomerular Filtration Rate 15-29 ([facility]) [phone] Social History Tobacco Use Types Packs/Day Years [...] How often do you attend mandaen or sikhism More than 4 time s [...] slept in a senior living (including now)? Education Answer Date Recorded What [...] renal stones. Darwin Giles IMG US PROCEDURES documented in this encounter Visit Diagnoses Diagnosis Achalasia Cough With Hemorrhage Shortness Of Breath Dysphagia Gastroesophageal Reflux Disease Without Esophagitis Laparoscopic Myotomy For Achalasia Statu s Post Chronic Kidney Disease Stage 4 Glomerula r Filtration Rate 15-29 (HCC) documented in this encounter
--- OUTSIDE RECORDS SUMMARY | 2022-04-17 15:53 | XMS_ITS | Encounter Summary ---
:[address] [facility] Address [address] [place] [address] Care Team Providers Name Role Phone Unavailable Primary Care Provider Unavailable Encounter Details Date Type Department Care Team Description 07/30/2003 - Hospital Encounter HX RST SLEEP FLOOR Shivam, 08/06/2003 PRACTICE Juan Pablo Purdy M.D. [address] [place] [address] Social History Tobacco Use Types Packs/Day Years [...] How often do you attend alevism or church More than 4 time s [...] place to sleep or slept in a fci (including now)? Sex Assigned at Date Recorded Male 04/11/2022 12:05 PM CDT documented as of this encounter Plan of Treatment Not on filedocumented as of this encounter Visit Diagnoses Not on filedocumented in this encounter
--- OUTSIDE RECORDS SUMMARY | 2022-04-17 15:53 | XMS_ITS | Encounter Summary ---
:1940 Author Organization [facility] Address [address] [place] [address] Care Team Providers Name Role Phone Unavailable Primary Care Provider Unavailable Encounter Details Date Type Department Care Team Description 02/18/2019 Anesthesia Event Division of Stas Blevins APRN, JAWBONE PULLER [address] [place] [address] [facility] [address] [place] [address] [place], [place] [address] [place] [address] Anesthesia Record Procedure Summary Procedure Name Responsible Anesthesia Start Anesthesia Stop Anesthesiologist Time Time EGD Juan Pablo Blevins APRN, 02/18/19 1536 02/18 1615 (ESOPHAGOGASTRODUODE JAWBONE PULLER NOSCOPY) RESTRICTED Events Date Time Event Comment [...] h andoff to the receiving staff during [facility] ch we 1. Identified the patient 2. [...] How often do you attend yazidism or caodaism More than 4 time s per year 04/11/2022 services? Do you belong to any clubs or organizations Yes 04/11/2022 such as yazidism groups, unions, fraternal or athletic groups, or [...] Room / Location: Division of Gastroenterology in [place], [place] Anesthesia Start: 1536 Anesthesia Stop: 1615 [...] with patient /legal guardian or through an translator/interpreter.. Risks/Benefits/Alternatives of Blood transfusion discussed with patient, [...]
--- OUTSIDE RECORDS SUMMARY | 2022-04-17 15:53 | XMS_ITS | Encounter Summary ---
:[address] [facility] Address [address] [place] [address] Care Team Providers Name Role Phone Unavailable [...] How often do you attend hinduism or voodoo More than 4 time s [...] or slept in a [facility] (including now)? Sex Assigned at Date Recorded Male 04/11/2022 12:05 PM CDT documented as of this encounter Plan of Treatment Not on filedocumented as of this encounter Procedures Procedure Name Priority Date/Time Associated Diagnosis Comme nts US EXTREMITY VEINS Routine 07/06/2002 9:51 AM Res ults for this WEB DEVELOPMENT MANAGER procedure are i n the results section. DX CHEST POST PICC Routine 07/04/2002 8:12 PM Res ults for this PLACEMENT 1 VIEW WEB DEVELOPMENT MANAGER procedure a re in the results section. US EXTREMITY VEINS Routine 07/04/2002 9:06 AM Res ults for this WEB DEVELOPMENT MANAGER procedure are i n the results section. US EXTREMITY VEINS Routine 06/30/2002 10:55 AM Re sults for this WEB DEVELOPMENT MANAGER procedure are i n the results section. documented in this encounter Results US Extremity Veins (07/06/2002 9:51 AM WEB DEVELOPMENT MANAGER) Anatomical Region Laterality Modality Vascular, Upper Extremity, Lower Extremity Ultrasound Specimen (Source) Anatomical Collection Method Collection Time Re ceived Time Location / / Volume Laterality 07/06/2002 9:51 AM WEB DEVELOPMENT MANAGER Narrative 07/06/2002 12:16 PM WEB DEVELOPMENT MANAGER 06-Jul-2002 09:51:00 ??Exam: R US Extremity Veins Limited Indications: RUE--F/U DVT, PLEASE DO SAT URDAY PER ??[id number] ORIGINAL REPORT - 06-Jul-2002 12:16:00 Doppler ultrasound [...] with Dr. Vazquez. Ind: 942.555 ?? Dia.556, 940.556, 542.556 ?? Electronically signed by: ?? Arvin Bland M.D. [id number] ([id number]) 06-Jul-20 02 12:16 Procedure Note Chava Bland M.D. - 11/24/2017Formatti ng of this note might be different from the original. 06-Jul-2002 09:51:00 Exam: R US Extremit y Veins Limited Indications: RUE--F/U DVT, PLEASE DO SAT URDAY PER [id number] ORIGINAL REPORT - 06-Jul-2002 12:16:00 Doppler ultrasound [...] Dia.556, 945.556, 542 .556 Electronically signed by: Arvni Bland M.D. [phone] ([id number]) 06-Jul-20 02 12:16 Edison Vazquez M.D. IMG US PROCEDURES DX Chest Post PICC Placement 1 View (07/04/2002 8:12 PM WEB DEVELOPMENT MANAGER) Anatomical Region Laterality Modality Chest N/A Radiographic Imaging Specimen (Source) Anatomical Collection Method Collection Time Re ceived Time Location / / Volume Laterality 07/04/2002 8:12 PM WEB DEVELOPMENT MANAGER Narrative 07/05/2002 10:44 AM WEB DEVELOPMENT MANAGER 04-Jul-2002 20:12:00 ??Exam: Chest-PICC Indications: left picc placement-svc ORIGINAL REPORT - 04-Jul-2002 20:49:00 Left PICC line with tip at the junction of the left innominate vein and SVC. No pneumothorax. Electronically signed by: ?? Norris Peraza [phone]) 04-Jul-20 02 20:49 I have reviewed the [...] No pneumothorax. Electronically signed by: Norris Peraza [phone] [id number] 04-Jul-20 02 20:49 I have reviewed the films/images and agr ee with the above interpretation. Electronically signed by: Eric. Dai Boyce M.D. 05-Jul-2002 10:44 Edison Vazquez M.D. IMG DIAGNOSTIC IMAGING PROCE [facility] US Extremity Veins (07/04/2002 9:06 AM WEB DEVELOPMENT MANAGER) Anatomical Region Laterality Modality Vascular, Upper Extremity, Lower Extremity Ultrasound Specimen (Source) Anatomical Collection Method Collection Time Re ceived Time Location / / Volume Laterality 07/04/2002 9:06 AM WEB DEVELOPMENT MANAGER Narrative 07/04/2002 11:44 AM WEB DEVELOPMENT MANAGER 04-Jul-2002 09:06:00 ??Exam: R US Extremity Veins Limited Indications: SWELLING/R/O THROMBOSIS^MB3 [id number] ORIGINAL REPORT - 04-Jul-2002 11:44:00 Ultrasound examination [...] ?? Electronically signed by: ?? Brandee Conde, ??Samia.OBailey ??[id number] 2 11:44 Procedure Note Neeru Conde D.O. - 11/24/2017Form atting of this note might be different from the original. 04-Jul-2002 09:06:00 Exam: R US Extremit y Veins Limited Indications: SWELLING/R/O THROMBOSIS^MB3 [id number] ORIGINAL REPORT - 04-Jul-2002 11:44:00 Ultrasound examination [...] Dia.545 Electronically signed by: Brandee Conde D.O. [id number] 04-Jul-2002 11 :44 Edison Vazquez M.D. IMG US PROCEDURES US Extremity Veins (06/30/2002 10:55 AM WEB DEVELOPMENT MANAGER) Anatomical Region Laterality Modality Vascular, Upper Extremity, Lower Extremity Ultrasound Specimen (Source) Anatomical Collection Method Collection Time Re ceived Time Location / / Volume Laterality 06/30/2002 10:55 AM WEB DEVELOPMENT MANAGER Narrative 07/01/2002 10:57 AM WEB DEVELOPMENT MANAGER 30-Jun-2002 10:55:00 ??Exam: US Extremity Veins Complete Indications: SWELLING/PAIN ORIGINAL REPORT - 30-Jun-2002 15:57:00 Doppler ultrasound evaluation of bilater ny lower extremity venous systems demonstrates patent and easily compressible common femoral, superficial femoral, and popliteal veins in both legs. ??No evidence for deep venous thrombosis. ?? Ultrasound electronic images only. ??NO FILMS Ind: [phone] ?? Dia.120 ?? Electronically signed by: ?? Marysol Mejia MD [phone] ([id number]) 2 15:57 I have reviewed the films/images and agr ee with the above interpretation. Electronically signed by: ?? Juan David [id number] ([id number]) 2 10:57 Procedure Note Provider, Historical [...] Dia.120 Electronically signed by: Marysol Mejia MD [phone] ([id number]) 2 15:57 I have reviewed the films/images and agr ee with the above interpretation. Electronically signed by: Juan David [id number] ([id number]) 2 10:57 Bassam BAKER US PROCEDURES documented in this encounter Visit Diagnoses Not on filedocumented in this encounter
--- OUTSIDE RECORDS SUMMARY | 2022-04-17 15:53 | XMS_ITS | Encounter Summary ---
:1940 Author Organization [facility] Address [address] [place] [address] Care Team Providers Name Role Phone Unavailable Primary Care Provider Unavailable Reason for Referral Outpatient (Routine) - Closed Specialty Diagnoses / Procedures Referred By Contact Refer red To Contact Diagnoses Achalasia Guillermo Werner M.D., [facility] Procedures EGD (EsophagoGastroDuodenoscopy) Restricted Ph.D. [address] [place] [address] Referral ID Status Reason Start Date Expiration Date Visits Requ ested Visits Authorized [id number] Closed 12/17/2018 12/17/2019 1 1 Reason for Visit Outpatient (Routine) - Closed Specialty Diagnoses / Procedures Referred By Contact Refer red To Contact Diagnoses Achalasia Guillermo Werner M.D., [facility] Procedures EGD (EsophagoGastroDuodenoscopy) Restricted Ph.D. [address] [place] [address] Referral ID Status Reason Start Date Expiration Date Visits Requ ested Visits Authorized [id number] Closed 12/17/2018 12/17/2019 1 1 Encounter Details Date Type Department Care Team Description 02/18/2019 Hospital Encounter Division of Guillermo Werner M.D., Ph.D. Achalasia Gastroenterology in Juan Pablo Blevins APRN, ICT PROGRAMMER [address] [place] [address] [place], [place] [address] [place] [phone] Social History Tobacco Use Types Packs/Day [...] How often do you attend moravian or sikh More than 4 time s per year 04/11/2022 services? Do you belong to any clubs or organizations Yes 04/11/2022 such as moravian groups, unions, fraClarityRay or athletic groups, or school groups? How [...] sent through Care Everywhere.Care Following Upper Endoscopy (Ugandan)Types of Diets (Ugandan)documented in this encounter Medications at Time of [...] Volume Laterality 02/18/2019 3:24 PM CDT Impressions [facility] [employer] - 02/18/2019 4:13 PM CDT Post-op Diagnoses: ? - Dilation in the entire esophagu s. ? - Normal lower esophageal sphinct er. Dilated. ? - Normal stomach. ? - Normal examined duodenum. ? - No specimens collected. ? - Endo flip consistent with treat ed achalasia. Narrative [place] [employer] - 02/18/2019 4:13 PM CDT Gonda 2 [...] Organization Address City/State/ZIP Code Phon e Number [facility] documented in this encounter Visit Diagnoses [...]
--- OUTSIDE RECORDS SUMMARY | 2022-04-17 15:53 | XMS_ITS | Encounter Summary ---
:1940 Author Organization [facility] Address [address] [place] [address] Care Team Providers Name Role Phone Unavailable [...] How often do you attend synagogue or bahai More than 4 time s per year 04/11/2022 services? Do you belong to any clubs or organizations Yes 04/11/2022 such as synagogue groups, unions, fraternal or [...] or slept in a retirement (including now)? Sex Assigned at Date Recorded Male 04/11/2022 12:05 PM CDT documented as of this encounter Plan of Treatment Not on filedocumented as of this encounter Visit Diagnoses Not on filedocumented in this encounter
--- OUTSIDE RECORDS SUMMARY | 2022-04-17 15:53 | XMS_ITS | Encounter Summary ---
:1940 Author Organization [facility] Address [address] [place] [address] Care Team Providers Name Role Phone Unavailable [...] How often do you attend samaritan or voodoo More than 4 time s per year 04/11/2022 services? Do you belong to any clubs or organizations Yes 04/11/2022 such as samaritan groups, unions, fraternal or [...] slept in a group home (including now)? Sex Assigned at Date Recorded Male 04/11/2022 12:05 PM CDT documented as of this encounter Plan of Treatment Not on filedocumented as of this encounter Procedures Procedure Name Priority Date/Time Associated Diagnosis Comme nts HXGENERAL PATHOLOGY Routine 06/25/2003 3:49 PM Re sults for this REPORT ELECTRIC MOTOR REPAIRING SUPERVISOR procedure are i n the results section. EEG ROUTINE - AWAKE Routine 06/25/2003 8:13 AM Re sults for this AND SLEEP ELECTRIC MOTOR REPAIRING SUPERVISOR procedure are i n the results section. MR BRAIN WITHOUT Routine 06/25/2003 7:31 AM Resul ts for this AND WITH IV ELECTRIC MOTOR REPAIRING SUPERVISOR procedure are i n CONTRAST the results section. documented in this encounter Results Hx general Pathology Report (06/25/2003 3:49 PM ELECTRIC MOTOR REPAIRING SUPERVISOR) Specimen Anatomical Collection Method Collection Time Receive d Time (Source) Location / / Volume Laterality 06/25/2003 3:49 PM 3 3:49 ELECTRIC MOTOR REPAIRING SUPERVISOR PM ELECTRIC MOTOR REPAIRING SUPERVISOR Narrative [facility] - 06/25/2003 3:49 PM ELECTRIC MOTOR REPAIRING SUPERVISOR ?06/25/2003 General Biopsy ? ([id number]) ? Requested By: ??Ta Jasmine ??[phone] ? TISSUE DESCRIPTION: [id number] A1 ?? A. ??Bulb, Duodenum biopsy: ??(1 piece 0.3 cm. in diameter) ?DIAGNOSIS: ?? Small bowel, duodenal bulb, nodule, end oscopic biopsy: ??Heterotopic fundic-type mucosa. ? 06/26/03 ??Rahel Woo M.D. [phone] ? Procedure Note 11/11/2017 06/25/2003 General Biopsy ([id number]) Requested By: Dieudonne Higgins M.D. [id number] TISSUE DESCRIPTION: [id number] A1 A. Bulb, Duodenum biopsy: (1 piece 0.3 cm. in diameter) DIAGNOSIS: Small bowel, duodenal bulb, nodule, end oscopic biopsy: Heterotopic fundic-type mucosa. 06/26/03 Rahel Woo M.D. [phone] Historical Provider LAB PATHOLOGY/CYTOLOGY ORDER SHON Performing Organization Address City/State/ZIP Code Phon e Number [facility] - [address] [place], [place] [address] [facility] EEG routine - awake and sleep (06/25/2003 8:13 AM ELECTRIC MOTOR REPAIRING SUPERVISOR) Specimen (Source) Anatomical Collection Method Collection Time Re ceived Time Location / / Volume Laterality 06/25/2003 8:13 AM ELECTRIC MOTOR REPAIRING SUPERVISOR [facility] - 06/25/2003 8:13 AM ELECTRIC MOTOR REPAIRING SUPERVISOR ?? 25 Jun 2003 ? Electroencephalography ?Final Report ? Referring Physician: ??Gen lenka Schaffer ??[phone] ?Date: ??25 Jun 2003 ?? EEG Loader Engineer: ? Micheal Ardon [phone] ?? Clinical Problem: ? Seizures ?? CLINICAL [...] right parasaggital regions (awake and ?? asleep); ??monitoring engineer. ?? REPORT: ??The recording during wakef ulness [...] ?? breathing was observed during sleep. ??The monitoring engineer was unremarkable. Micheal Lewis (Signature date Jun 2003 12:12) Procedure Note Jos Lewis M.D. - 12/04/2017Formatting o f this note might be different from the original. 25 Jun 2003 Electroencephalography Fin al Report Referring Physician: Tyra Schaffer [id number] Date: 25 Jun 2003 EEG Loader Engineer: Micheal Lewis [id number] Clinical Problem: Seizures CLINICAL INTERPRETATION: The EEG [...] and right parasaggital regions (awake and asleep); monitoring engineer. REPORT: The recording during wakefulnes s shows [...] breathing was observed during sleep. Th e monitoring engineer was unremarkable. Micheal Lewis (Signature date Jun 2003 12:12) Tyra Schaffer M.D. NEUROLOGY ORDERABLES Performing Organization Address City/State/ZIP Code Phon e Number [facility] [address] [place] [address], U SA MR Brain without and with IV Contrast (06/25/2003 7:31 AM ELECTRIC MOTOR REPAIRING SUPERVISOR) Anatomical Region Laterality Modality Head, Brain N/A Magnetic Resonance Specimen (Source) Anatomical Collection Method Collection Time Re ceived Time Location / / Volume Laterality 06/25/2003 7:31 AM ELECTRIC MOTOR REPAIRING SUPERVISOR Narrative 06/25/2003 8:38 AM ELECTRIC MOTOR REPAIRING SUPERVISOR 25-Jun-2003 07:31:00 ??Exam: MRI Hd wo&w Indications: [...] 117.200 ?? Dia.450 ?? Franci Starks MD [phone] ([id number]) ?? I have reviewed the films/images and agr ee with the above interpretation. Electronically signed by: ?? Lizzette Varela M.D. [phone] 25-Jun-2003 08:36 Procedure Note Keila Varela M.D. [...] negative. Ind: 117.200 Dia.450 Franci Starks MD [phone] ([id number]) I have reviewed the films/images and agr ee with the above interpretation. Electronically signed by: Lizzette Varela M.D. [id number] 25-Jun-2003 08:36 Fede BAKER MRI PROCEDURES documented in this encounter Visit Diagnoses Not on filedocumented in this encounter
--- OUTSIDE RECORDS SUMMARY | 2022-04-17 15:53 | XMS_ITS | Encounter Summary ---
:1940 Author Organization [facility] Address [address] [place] [address] Care Team Providers Name Role Phone Unavailable Primary Care Provider Unavailable Encounter Details Date Type Department Care Team Description 02/14/2019 Hospital Encounter Department of Marilin, Achalasi a; Laboratory Medicine Chicohankar, Cough Wi th Hemorrhage; and Pathology, M.B.B.S. Shortness Of Breath; [facility], in Dysphagi a; [facility] Gastroesophagea l Reflux Disease Without Esophagitis; [place] Laparoscopic Myotomy For Ach alasia Status Post; [address] [facility] Chronic Kidney Disease Stage 4 Glomerular Filtration Rate 15-29 (HCC) [place] [address] Social History Tobacco Use Types Packs/Day Years [...] How often do you attend mosque or spiritism More than 4 time s [...] City/State/ZIP Code Phon e Number [facility] - [address] [place], [place] [address] [facility] (ABNORMAL) Microalbumin, Random, Urine (02/14/2019 10:57 AM CDT) athologist Signature Microalbumin 101.0 mg/L 02/14/2019 11:27 AM CDT Comment: ----ADDITIONAL INFORMATION---- This test has been modified from the man ufacturer's instructions. Its performance characteri stics were determined by [facility] in a manner co nsistent with CLIA [...] City/State/ZIP Code Phon e Number [facility] - [address] [place], [place] [address] [facility] (ABNORMAL) Urinalysis with Microscopic: Urine, Clean Catch (02/14/2019 10:57 AM CDT) [facility] gist Method Time Signature Source Midstream 02/14/2019 10:57 AM CDT Appearance Normal Normal 02/14/2019 11:27 AM CDT Osmolality, U 412 150 - 1150 02/14/2019 mOsm/kg 12:21 PM CDT pH, U 5.4 4.5 - 8.0 02/14/2019 12:21 PM CDT Comment: ----ADDITIONAL INFORMATION---- This test was developed and its performa nce characteristics determined by [facility] in a manner co nsistent with CLIA [...] City/State/ZIP Code Phon e Number [facility] - [address] [place] [id number] [facility] documented in this encounter Visit Diagnoses Diagnosis Achalasia Cough With Hemorrhage Shortness Of Breath Dysphagia Gastroesophageal Reflux Disease Without Esophagitis Laparoscopic Myotomy For Achalasia Statu s Post Chronic Kidney Disease Stage 4 Glomerula r Filtration Rate 15-29 (HCC) documented in this encounter
--- OUTSIDE RECORDS SUMMARY | 2022-04-17 15:54 | XMS_ITS | Encounter Summary ---
:1940 Author Organization [facility] Address [address] [place] [address] Care Team Providers Name Role Phone Harish Silver MD Primary Care Provider Encounter Details Date Type Department Care Team Description 01/26/2022 Treatment [facility] Sebastian Jimenez MD [address] [place], [place] [phone] (Wo rk) Social History Tobacco Use Types [...] Name: David Castro : 1940 Chart #: [id number] Sex: M This patient was personally seen for a complete visit as part of routine monthly dialysis care. A review of the dialysis treatment, blood pressure, estimated dry weight, and recent lab values was made.These were discussed with the patient and staff as necessary. MEDICAL PHOTOGRAPHER: Sebastian Charles MD LOCATION: [phone] SCHEDULE: No Routine Schedule Subjective 01/26/22: Georges feels fantastic, back like himself again. HE walked 5 miles with >10,000 steps [id number] already this morning. He has no orthopnea or SOB, wt is lower, dialysis is going very well, and he has his liquid diet figured out and is tolerating protein powder and liquicel. He has no concerns at all today and is very pleased since feeling much better after IV iron infusion at the [facility] that we had arranged. 12/22/21: Georges was unfortunately hospitalized twice since our last visit. He went home and was very weak after I saw him last month on 12/01, went to ER and was admitted at [place] from 12/02-12/08, had empyemaand chest tube was [...] had two infusions of Feraheme 510mg at [facility], will repeat Hgb and iron studies but [...] on filedocumented in this encounter Care Teams Motor Racer Relationship Specialty Start Date End Date Harish Silver MD PCP - General 05/17/19 [address] [place] [address] documented as of this encounter
--- OUTSIDE RECORDS SUMMARY | 2022-04-17 15:54 | XMS_ITS | Encounter Summary ---
:1940 Author Organization [facility] Address [address] [place] [address] Care Team Providers Name Role Phone Harish Silver MD Primary Care Provider Encounter Details Date Type Department Care Team Description 03/30/2022 Treatment [facility] Sebastian Jimenez MD [address] [place] [address] [place], [place] [phone] (Wo rk) Social History Tobacco Use Types [...] Name: David Castro : 1940 Chart #: [id number] Sex: M This patient was personally seen for a complete visit as part of routine monthly dialysis care. A review of the dialysis treatment, blood pressure, estimated dry weight, and recent lab values was made.These were discussed with the patient and staff as necessary. DIETARY COOK: Sebastian Charles MD LOCATION: [phone] SCHEDULE: No Routine Schedule Subjective Tolerating dialysis [...] HE walked 5 miles with >10,000 steps [id number] already this morning. He has no orthopnea or SOB, wt is lower, dialysis is going very well, and he has his liquid diet figured out and is tolerating protein powder and liquicel. He has no concerns at all today and is very pleased since feeling much better after IV iron infusion at the [facility] that we had arranged. 12/22/21: Georges was unfortunately hospitalized twice since our last visit. He went home and was very weak after I saw him last month on 12/01, went to ER and was admitted at [place] from 12/02-12/08, had empyemaand chest tube was [...] on filedocumented in this encounter Care Teams Clicking Machine Operator Relationship Specialty Start Date End Date Harish Silver MD PCP - General 05/17/19 [address] [place] [address] documented as of this encounter
--- OUTSIDE RECORDS SUMMARY | 2022-04-17 15:54 | XMS_ITS | Encounter Summary ---
:1940 Author Organization [facility] Address [address] [place] [address] Care Team Providers Name Role Phone Harish Silver MD Primary Care Provider Encounter Details Date Type Department Care Team Description 01/26/2022 Orders Only [facility] f Sebastian Mohan MD [phone] [place] [address] [place], [place] [phone] (Wo rk) Social History Tobacco Use [...] Date/Time Associated Diagnosis Comme nts HEMATOLOGY Routine 01/26/2022 Results for thi s procedure are in the resu lts section. CHEMISTRY Routine 01/26/2022 Results for thi s procedure are in the resu lts section. documented in this encounter Results (ABNORMAL) HEMATOLOGY (01/26/2022) [facility] gist Method Time Signature WBC 8.03 4.80 - [facility] 10.80 [facility] 1000/mcL RBC 4.01 (L) 4.70 - [facility] 6.10 [facility] mill/mcL Hemoglobin 12.2 (L) 14.0 - [facility] 18.0 g/dL [facility] Hemoglobin x 3 36.6 (L) 42.0 - [facility] 54.0 % [facility] Hematocrit 40.1 (L) 42.0 - [facility] 52.0 % [facility] MCV 100 80 - 100 [facility] fl [facility] MCH 30.4 27.0 - [facility] 31.0 pg [facility] MCHC 30.4 30.0 - [facility] 36.0 g/dL [facility] RDW 20.4 (H) 11.5 - [facility] 14.5 % [facility] Neutrophils 75.6 (H) 40.0 - [facility] 75.0 % [facility] Lymphocytes 4.2 (L) 19.0 - [facility] Relative 48.0 % [facility] Monocytes 5.0 3.0 - 10.0 [facility] % [facility] Eosinophils 11.0 (H) 0.0 - 7.0 [facility] Relative % [facility] Basophils 3.2 (H) 0.0 - 1.5 [facility] Relative % [facility] JUAN ANTONIO 1.0 0.0 - 4.0 [facility] % [facility] Specimen (Source) Anatomical Collection Method Collection Time Re ceived Time Location / / Volume Laterality 01/26/2022 01/28/2022 1:15 PM CDT Narrative [facility] - 01/28/2022 Unless otherwise specified, test(s) performed at: [facility], [address] [place], [place] [id number] SENIOR TELECOMMUNICATIONS SPECIALIST: Steve Younger M.D. For any questions, please call customer service at FREQUENCY:MONTHLY Resulting Agency Comment Specimen source: Blood Sebastian Charles MD LAB BLOOD ORDERABLES Performing Organization Address City/State/ZIP Code Phon e Number [facility] (ABNORMAL) [facility] Chemistry (01/26/2022) [facility] gist Method Time Signature BUN 51 (H) 6 - 19 [facility] mg/dL [facility] Creatinine 3.65 (H) 0.60 - [facility] 1.30 mg/dL [facility] BUN/Creatinine 14.0 10.0 - [facility] Ratio 20.0 [facility] Sodium 138 136 - 145 [facility] mEq/L [facility] Potassium 3.9 3.5 - 5.1 [facility] mEq/L [facility] Chloride 98 96 - 108 [facility] mEq/L [facility] Bicarbonate 28 22 - 29 [facility] (CO2) mEq/L [facility] Calcium 8.6 8.4 - 10.2 [facility] mg/dL [facility] Corrected 9.1 8.4 - 10.2 [facility] Calcium mg/dL [facility] Comment: Corrected Calcium is not equivalent to m easured Ionized Calcium. Phosphorus 4.7 (H) 2.6 - 4.5 mg/dL [facility] Calcium Phosphorus Product 40 0 - 54 [facility] Calcium Phosporus Product, Cor 43 0 - 54 [facility] Albumin 3.4 (L) 3.5 - 5.2 g/dL [facility] [place] Ferritin 306 22 - 322 ng/mL [facility] [place] Iron 80 45 - 160 mcg/dL [facility] UIBC 194 155 - 355 mcg/dL [facility] TIBC 274 185 - 515 mcg/dL [facility] Iron Saturation (TSat) 29 20 - 55 % APS SPE CTRA [facility] Specimen (Source) Anatomical Collection Method Collection Time Re ceived Time Location / / Volume Laterality 01/26/2022 01/28/2022 12:2 6 PM CDT Narrative [facility] - 01/28/2022 Unless otherwise specified, test(s) performed at: [facility], [address] [place] [address] SENIOR TELECOMMUNICATIONS SPECIALIST: Steve Younger M.D. For any questions, please call customer service at FREQUENCY:MONTHLY Resulting Agency Comment Specimen source: Serum Sebastian Charles MD LAB BLOOD ORDERABLES Performing Organization Address City/State/ZIP Code Phon e Number [facility] documented in this encounter Visit Diagnoses Not on filedocumented in this encounter Care Teams Corrugator Helper Relationship Specialty Start Date End Date Harish Silver MD PCP - General 05/17/19 [place] [address] documented as of this encounter
--- OUTSIDE RECORDS SUMMARY | 2022-04-17 15:54 | XMS_ITS | Encounter Summary ---
:1940 Author Organization [facility] Address [address] [place] [address] Care Team Providers Name Role Phone Harish Silver MD Primary Care Provider Encounter Details Date Type Department Care Team Description 12/22/2021 Treatment [facility] Sebastian Jimenez MD [address] [place] [address] [place], [place] [phone] (Wo rk) Social History Tobacco Use Types [...] Name: David Castro : 1940 Chart #: [id number] Sex: M This patient was personally seen for a complete visit as part of routine monthly dialysis care. A review of the dialysis treatment, blood pressure, estimated dry weight, and recent lab values was made.These were discussed with the patient and staff as necessary. ENTERPRISE INTEGRATION DEVELOPER: Sebastian Charles MD LOCATION: [phone] SCHEDULE: No Routine Schedule Subjective 12/22/21: Georges was unfortunately hospitalized twice since our last visit. He went home and was very weak after I saw him last month on 12/01, went to ER and was admitted at [place] from 12/02-12/08, had empyemaand chest tube was [...] Feeding tube was considered in hospital at [place] but he declined. He is having liquid [...] fluid as this was not done at [facility] as it was thought to be unlikely given appeared infectious empyema. Stop isosorbide today, monitor BP and orthostatic symptoms Home RN visit to assess how he is taking himself off and the pin malfunction he is having Consider stat drain when taking himself off if negative UF on 2.5% bags to ensure not retaining fluid from sleeping position Sebatsian Charles MD [ Signed And locked electronically On 12/22/2021 at 11:14:23 AM ] Transcribed: Sebastian Charles ( 12/22/2021 ) documented in this encounter Plan of Treatment Not on filedocumented as of this encounter Visit Diagnoses Not on filedocumented in this encounter Care Teams Health Care Facility Administrator Relationship Specialty Start Date End Date Harish iSlver MD PCP - General 05/17/19 [address] [place] [address] documented as of this encounter
--- OUTSIDE RECORDS SUMMARY | 2022-04-17 15:54 | XMS_ITS | Encounter Summary ---
:1940 Author Organization [facility] Address [address] [place] [address] Care Team Providers Name Role Phone Harish Silver MD Primary Care Provider Encounter Details Date Type Department Care Team Description 03/02/2022 Treatment [facility] Sebastian Jimenez MD [address] [place] [address] [place], [place] [phone] (Wo rk) Social History Tobacco Use Types [...] Name: David Castro : 1940 Chart #: [id number] Sex: M This patient was personally seen for a complete visit as part of routine monthly dialysis care. A review of the dialysis treatment, blood pressure, estimated dry weight, and recent lab values was made.These were discussed with the patient and staff as necessary. PHOTOGRAPHER MOTION PICTURE: Sebastian Charles MD LOCATION: [phone] SCHEDULE: No Routine Schedule Subjective 03/02/22: Georges [...] HE walked 5 miles with >10,000 steps [id number] already this morning. He has no orthopnea [...] went to ER and was admitted at [place] from 12/02-12/08, had empyemaand chest tube was [...] on filedocumented in this encounter Care Teams Alignment Specialist Relationship Specialty Start Date End Date Harish Silver MD PCP - General 05/17/19 [address] [place] [address] documented as of this encounter
--- OUTSIDE RECORDS SUMMARY | 2022-04-17 15:54 | XMS_ITS | Encounter Summary ---
:1940 Author Organization [facility] Address [address] [place] [address] Care Team Providers Name Role Phone Harish Silver MD Primary Care Provider Encounter Details Date Type Department Care Team Description 12/01/2021 Treatment [facility] Sebastian Jimenez MD [address] [place] [address] [place], [place] [phone] (Wo rk) Social History Tobacco Use Types [...] Name: David Castro : 1940 Chart #: [id number] Sex: M This patient was personally seen for a complete visit as part of routine monthly dialysis care. A review of the dialysis treatment, blood pressure, estimated dry weight, and recent lab values was made.These were discussed with the patient and staff as necessary. BOX WORKER: Sebastian Charles MD LOCATION: [phone] SCHEDULE: No Routine Schedule Subjective 12/01/21: Georges [...] on filedocumented in this encounter Care Teams Hadoop Administrator Relationship Specialty Start Date End Date Harish Silver MD PCP - General 05/17/19 [address] [place] [address] documented as of this encounter
--- OUTSIDE RECORDS SUMMARY | 2022-04-17 15:54 | XMS_ITS | Encounter Summary ---
:1940 Author Organization [facility] Address [address] [place] [address] Care Team Providers Name Role Phone Harish Silver MD Primary Care Provider Encounter Details Date Type Department Care Team Description 11/10/2021 Orders Only [facility] f Sebastian Mohan MD [phone] [place] [address] [place], [place] [phone] (Wo rk) Social History Tobacco Use [...] 11/11/2021 Unless otherwise specified, test(s) performed at: [facility], [address] [place] [address] HEALTHCARE TRANSLATOR: Steve Younger M.D. For any questions, please [...] have been corrected fo r glucose interference. [facility] glucose correction factor f or creatinine is [...] 11/11/2021 Unless otherwise specified, test(s) performed at: [facility], [address] [place], [place] [id number] HEALTHCARE TRANSLATOR: Steve Younger M.D. For any questions, please [...] 11/11/2021 Unless otherwise specified, test(s) performed at: [facility], [address] [place] [address] HEALTHCARE TRANSLATOR: Steve Younger M.D. For any questions, please call customer service at FREQUENCY:MONTHLY Resulting Agency Comment Specimen source: PD Fluid Sebastian Charles MD LAB BLOOD ORDERABLES Performing Organization Address City/[facility]/ZIP Code Phon e Number [facility] [...] 11/11/2021 Unless otherwise specified, test(s) performed at: [facility], [address] [place] [address] HEALTHCARE TRANSLATOR: Steve Younger M.D. For any questions, please call customer service at FREQUENCY:MONTHLY Resulting Agency Comment Specimen source: Serum Sebastian Charles MD LAB BLOOD ORDERABLES Performing Organization Address City/[facility] Phon e Number [facility] [...] 11/11/2021 Unless otherwise specified, test(s) performed at: [facility], [address] [place] [address] HEALTHCARE TRANSLATOR: Steve Younger M.D. For any questions, please call customer service at FREQUENCY:MONTHLY Resulting Agency Comment Specimen source: PD Fluid Sebastian Charles MD LAB BLOOD ORDERABLES Performing Organization Address City/[facility] Phon e Number [facility] [...] 11/11/2021 Unless otherwise specified, test(s) performed at: [facility], [address] [place] [address] HEALTHCARE TRANSLATOR: Steve Younger M.D. For any questions, please call customer service at FREQUENCY:MONTHLY Resulting Agency Comment Specimen source: PD Fluid Sebastian Charles MD LAB BLOOD ORDERABLES Performing Organization Address City/State/ZIP Code Phon e Number [facility] documented in this encounter Visit Diagnoses Not on filedocumented in this encounter Care Teams Police Aide Relationship Specialty Start Date End Date Harish Silver MD PCP - General 05/17/[address] [place] [address] documented as of this encounter
--- OUTSIDE RECORDS SUMMARY | 2022-04-17 15:54 | XMS_ITS | Encounter Summary ---
:1940 Author Organization [facility] Address [address] [place] [address] Care Team Providers Name Role Phone Harish Silver MD Primary Care Provider Encounter Details Date Type Department Care Team Description 03/02/2022 Orders Only [facility] f Sebastian Mohan MD [address] [place] [address] [place], [place] [phone] (Wo rk) Social History Tobacco Use [...] 03/03/2022 Unless otherwise specified, test(s) performed at: [facility], [address] [place] [address], [place] [address] BUSINESS ANALYST MANAGER: Dariel Doyle M.D., Ph.D For any questions, [...] MD LAB BLOOD ORDERABLES Performing Organization Address [facility] Code Phon e Number APS [...] 03/03/2022 Unless otherwise specified, test(s) performed at: [facility], [address] [place] [address], [place] [address] BUSINESS ANALYST MANAGER: Dariel Doyle M.D., Ph.D For any questions, please call customer service at FREQUENCY:MONTHLY Resulting Agency Comment Specimen source: PD Fluid Sebastian Charles MD LAB BLOOD ORDERABLES Performing Organization Address City/[facility]/ZIP Code Phon e Number [facility] [...] have been corrected fo r glucose interference. [facility] glucose correction factor f or creatinine is [...] 03/03/2022 Unless otherwise specified, test(s) performed at: [facility], [address] [place] [address] [place] [address] BUSINESS ANALYST MANAGER: Dariel Doyle M.D., Ph.D For any questions, [...] 03/03/2022 Unless otherwise specified, test(s) performed at: [facility], [address] [place] [address], [place] [address] BUSINESS ANALYST MANAGER: Dariel Doyle M.D., Ph.D For any questions, [...] 03/03/2022 Unless otherwise specified, test(s) performed at: [facility], [address] [place] [address], [place] [address] BUSINESS ANALYST MANAGER: Dariel Doyle M.D., Ph.D For any questions, please call customer service at FREQUENCY:MONTHLY Resulting Agency Comment Specimen source: Blood Sebastian Charles MD LAB BLOOD ORDERABLES Performing Organization Address City/[facility] Phon e Number [facility] (ABNORMAL) [facility] Chemistry (03/02/2022) P athologist Signature PTH 263 (H) 16 - 80 [facility] pg/mL [facility] Specimen (Source) Anatomical Collection Method Collection Time Re ceived Time Location / / Volume Laterality 03/02/2022 03/03/2022 2:44 AM CDT Narrative [facility] - 03/03/2022 Unless otherwise specified, test(s) performed at: [facility], [address] [place] [address], [place] [address] BUSINESS ANALYST MANAGER: Dariel Doyle M.D., Ph.D For any questions, please call customer service at FREQUENCY:MONTHLY Resulting Agency Comment Specimen source: Plasma Sebastian Charles MD LAB BLOOD ORDERABLES Performing Organization Address City/[facility] Phon e Number [facility] PATIENT [...] 03/03/2022 Unless otherwise specified, test(s) performed at: [facility], [address] [place], [place] [address] [address] BUSINESS ANALYST MANAGER: Dariel Doyle M.D., Ph.D For any questions, please call customer service at FREQUENCY:MONTHLY Resulting Agency Comment Specimen source: PD Fluid Sebastian Charles MD LAB BLOOD ORDERABLES Performing Organization Address City/State/ZIP Code Phon e Number [facility] documented in this encounter Visit Diagnoses Not on filedocumented in this encounter Care Teams Director Mba Relationship Specialty Start Date End Date Harish Silver MD PCP - General 05/17/19 [facility] [place] [address] documented as of this encounter
--- OUTSIDE RECORDS SUMMARY | 2022-04-17 15:54 | XMS_ITS | Encounter Summary ---
:1940 Author Organization [facility] Address [address] [place] [address] Care Team Providers Name Role Phone Harish Silver MD Primary Care Provider Encounter Details Date Type Department Care Team Description 12/01/2021 Orders Only [facility] f Sebastian Mohan MD [phone] [place] [address] [place], [place] [phone] (Wo rk) Social History Tobacco Use [...] in this encounter Results (ABNORMAL) HEMATOLOGY (12/01/2021) [facility] Method Time Signature WBC 6.62 [...] 2021 Unless otherwise specified, test(s) performed at: [facility], [address] [place] [address] MOLDER SWEEP: Steve Younger M.D. For any questions, please [...] 2021 Unless otherwise specified, test(s) performed at: [facility], [address] [place] [address] MOLDER SWEEP: Steve Younger M.D. For any questions, please [...] 2021 Unless otherwise specified, test(s) performed at: [facility], [address] [place] [address] MOLDER SWEEP: Steve Younger M.D. For any questions, please call customer service at FREQUENCY:MONTHLY Resulting Agency Comment Specimen source: Plasma Sebastian Charles MD LAB BLOOD ORDERABLES Performing Organization Address City/State/ZIP Code Phon e Number [facility]PS [facility] documented in this encounter Visit Diagnoses Not on filedocumented in this encounter Care Teams Auto Electrician Relationship Specialty Start Date End Date Harish Silver MD PCP - General 05/17/[address] [address] documented as of this encounter
--- OUTSIDE RECORDS SUMMARY | 2022-04-17 15:54 | XMS_ITS | Encounter Summary ---
:1940 Author Organization [facility] Address [address] [place] [address] Care Team Providers Name Role Phone Harish Silver MD Primary Care Provider Encounter Details Date Type Department Care Team Description 10/27/2021 Treatment [facility] Sebastian Jimenez MD [address] [place], [place] [phone] (Wo rk) Social History Tobacco Use Types [...] Name: David Castro : 1940 Chart #: [id number] Sex: M This patient was personally seen for a complete visit as part of routine monthly dialysis care. A review of the dialysis treatment, blood pressure, estimated dry weight, and recent lab values was made.These were discussed with the patient and staff as necessary. ELECTRICAL DESIGN ENGINEER: Sebastian Charles MD LOCATION: [phone] SCHEDULE: No Routine Schedule Subjective 10/27/21: Georges [...] on filedocumented in this encounter Care Teams Medical Referral Coordinator Relationship Specialty Start Date End Date Harish Silver MD PCP - General 05/17/19 [address] [place] [address] documented as of this encounter
--- OUTSIDE RECORDS SUMMARY | 2022-04-17 15:54 | XMS_ITS | Encounter Summary ---
:1940 Author Organization [facility] Address [address] [place] [address] Care Team Providers Name Role Phone Harish Silver MD Primary Care Provider Encounter Details Date Type Department Care Team Description 03/30/2022 Orders Only [facility] f Sebastian Mohan MD [phone] [place] [address] [place], [place] [phone] (Wo rk) Social History Tobacco Use [...] this encounter Results (ABNORMAL) Spectrae Chemistry (03/30/2022) [facility] gist Method Time Signature BUN 76 (H) [...] 03/31/2022 Unless otherwise specified, test(s) performed at: [facility], [address] [place] [address], [place] [address] CURB ATTENDANT: Dariel Doyle M.D., Ph.D For any questions, please call customer service at FREQUENCY:MONTHLY Resulting Agency Comment Specimen source: Serum Sebastian Charles MD LAB BLOOD ORDERABLES Performing Organization Address City/State/ZIP Code Phon e Number [facility]PS S[facility]RA [facility] (ABNORMAL) HEMATOLOGY (03/30/2022) [facility] gist Method Time Signature WBC 6.97 4.80 [...] 03/31/2022 Unless otherwise specified, test(s) performed at: [facility], [address] [place] [address], [place] [address] CURB ATTENDANT: Dariel Doyle M.D., Ph.D For any questions, please call customer service at FREQUENCY:MONTHLY Resulting Agency Comment Specimen source: Blood Sebastian Charles MD LAB BLOOD ORDERABLES Performing Organization Address City/State/ZIP Code Phon e Number [facility] documented in this encounter Visit Diagnoses Not on filedocumented in this encounter Care Teams Chip Tester Relationship Specialty Start Date End Date Harish Silver MD PCP - General 05/17/19 [address] [place] [address] documented as of this encounter
--- OUTSIDE RECORDS SUMMARY | 2022-04-17 15:54 | XMS_ITS | Encounter Summary ---
:1940 Author Organization [facility] Address [address] [place] [address] Care Team Providers Name Role Phone Harish Silver MD Primary Care Provider Encounter Details Date Type Department Care Team Description 01/12/2022 Orders Only [facility] f Sebastian Mohan MD [phone] [place] [address] [place], [place] [phone] (Wo rk) Social History Tobacco Use [...] 01/13/2022 Unless otherwise specified, test(s) performed at: [facility], [address] [place] [address] ENGINE TESTER: Steve Younger M.D. For any questions, please call customer service at FREQUENCY:OTHER Resulting Agency Comment Specimen source: Blood Sebastian Charles MD LAB BLOOD ORDERABLES Performing Organization Address City/State/ZIP Code Phon e Number [facility] documented in this encounter Visit Diagnoses Not on filedocumented in this encounter Care Teams Other Sales Support Worker Relationship Specialty Start Date End Date Harish Silver MD PCP - General 05/17/19 [address] [place] [address] documented as of this encounter
--- OUTSIDE RECORDS SUMMARY | 2022-04-17 15:54 | XMS_ITS | Encounter Summary ---
:1940 Author Organization [facility] Address [address] [place] [address] Care Team Providers Name Role Phone Harish Silver MD Primary Care Provider Encounter Details Date Type Department Care Team Description 12/22/2021 Orders Only [facility] O f Sebastian Mohan MD [phone] [place] [address] [place], [place] [phone] (Wo rk) Social History Tobacco Use [...] this encounter Results (ABNORMAL) Spectrae Chemistry (12/22/2021) [facility] gist Method Time Signature BUN 34 (H) [...] 12/24/2021 Unless otherwise specified, test(s) performed at: [facility] [address] [place] [address] FLATWORK FINISHER: Steve Younger M.D. For any questions, please [...] 12/23/2021 Unless otherwise specified, test(s) performed at: [facility] [address] [place] [address] FLATWORK FINISHER: Steve Younger M.D. For any questions, please call customer service at FREQUENCY:MONTHLY Resulting Agency Comment Specimen source: Blood Sebastian Charles MD LAB BLOOD ORDERABLES Performing Organization Address City/State/ZIP Code Phon e Number [facility]PS S[facility]RA [facility] documented in this encounter Visit Diagnoses Not on filedocumented in this encounter Care Teams Bulk Intake Worker Relationship Specialty Start Date End Date Harish Silver MD PCP - General 05/17/[address] [place] [address] documented as of this encounter
--- OUTSIDE RECORDS SUMMARY | 2022-04-17 15:54 | XMS_ITS | Encounter Summary ---
:1940 Author Organization [facility] Address [address] [place] [address] Care Team Providers Name Role Phone Harish Silver MD Primary Care Provider Encounter Details Date Type Department Care Team Description 10/19/2021 Orders Only [facility] f Sebastian Mohan MD [phone] [place] [address] [place], [place] [phone] (Wo rk) Social History Tobacco Use [...] Volume Laterality 10/19/2021 10/20/2021 12:2 2 PM DOUBLER OPERATOR Resulting Agency Comment Specimen source: Urine Sebastian [...] Volume Laterality 10/19/2021 10/20/2021 12:2 2 PM DOUBLER OPERATOR Narrative [facility] - 10/20/2021 Unless otherwise specified, test(s) performed at: [facility], [address] [place] [address] ER RN: Steve Younger M.D. For any questions, please [...] Volume Laterality 10/19/2021 10/20/2021 12:0 9 PM DOUBLER OPERATOR Resulting Agency Comment Specimen source: PD Fluid [...] Volume Laterality 10/19/2021 10/20/2021 12:0 9 PM DOUBLER OPERATOR Resulting Agency Comment Specimen source: PD Fluid Sebastian Charles MD LAB BLOOD ORDERABLES Performing Organization Address City/[facility]/ZIP Code Phon e Number APS SPECTRA [facility] [...] Volume Laterality 10/19/2021 10/20/2021 12:0 9 PM DOUBLER OPERATOR Resulting Agency Comment Specimen source: PD Fluid [...] Volume Laterality 10/19/2021 10/20/2021 12:0 9 PM DOUBLER OPERATOR Narrative [facility]PS SPECTRA [facility] - 10/20/2021 Unless otherwise specified, test(s) performed at: [facility], [address] [place] [address] ER RN: Steve Younger M.D. For any questions, please [...] Volume Laterality 10/19/2021 10/20/2021 12:1 5 PM DOUBLER OPERATOR Resulting Agency Comment Specimen source: PD Fluid Sebastian Charles MD LAB BLOOD ORDERABLES Performing Organization Address City/[facility]/ZIP Code Phon e Number APS SPECTRA [facility] [...] Volume Laterality 10/19/2021 10/20/2021 12:1 5 PM DOUBLER OPERATOR Resulting Agency Comment Specimen source: PD Fluid [...] Volume Laterality 10/19/2021 10/20/2021 12:1 5 PM DOUBLER OPERATOR Resulting Agency Comment Specimen source: PD Fluid Sebastian Charles MD LAB BLOOD ORDERABLES Performing Organization Address City/State/ZIP Code Phon e Number [facility] P.E.T. INTERPRETATION (10/19/2021) [facility] gist Method Time Signature Solute Average APS [...] 0 .82-1.03 ?? 0.43-0.24 ?? 0.25-0.12 ?? [phone] Average High ? 0.49-0.62 ?? 0.66- 0.81 ?? 0.54-0.44 ?? 0.37-0.26 ?? 0659-9583 Average ?0.48 ?0.65 ?0.55 ?0.38 ?2368 Average Low ?0.34-0.47 ?? 0.50 -0.64 ?? 0.66-0.56 ?? 0.49-0.39 ?? 3963-2380 Low ?0.23-0.33 ?? 0.34-0.49 ?? 0.78-0.67 ?? 0.61-0.50 ?? [phone] *Concetta GREY, Bridgette KD, Farooq R, Jovani [...] Volume Laterality 10/19/2021 10/20/2021 12:1 5 PM DOUBLER OPERATOR Narrative [facility]PS [facility] - 10/20/2021 Unless otherwise specified, test(s) performed at: [facility], [address] [place] [address] ER RN: Steve Younger M.D. For any questions, please [...] have been corrected fo r glucose interference. [facility] glucose correction factor f or creatinine [...] Volume Laterality 10/19/2021 10/20/2021 11:5 9 AM DOUBLER OPERATOR Resulting Agency Comment Specimen source: PD Fluid [...] Volume Laterality 10/19/2021 10/20/2021 11:5 9 AM DOUBLER OPERATOR Narrative APS SPECTRA [facility] - 10/20/2021 Unless otherwise specified, test(s) performed at: [facility], [address] [place] [address] ER RN: Steve Younger M.D. For any questions, please call customer service at FREQUENCY:MONTHLY Resulting Agency Comment Specimen source: PD Fluid Sebastian Charles MD LAB BODY FLUIDS AND STOOLS O RDERABLES Performing Organization Address City/[facility]/ZIP Code Phon e Number APS SPECTRA [facility] [...] Volume Laterality 10/19/2021 10/20/2021 12:1 9 PM DOUBLER OPERATOR Resulting Agency Comment Specimen source: PD Fluid Sebastian Charles MD LAB BLOOD ORDERABLES Performing Organization Address [facility] Code Phon e Number APS SPECTRA [facility] [...] Volume Laterality 10/19/2021 10/20/2021 12:1 9 PM DOUBLER OPERATOR Resulting Agency Comment Specimen source: PD Fluid Sebastian Charles MD LAB BLOOD ORDERABLES Performing Organization Address City/[facility] Code Phon e Number APS SPECTRA [facility] [...] Volume Laterality 10/19/2021 10/20/2021 12:1 9 PM DOUBLER OPERATOR Resulting Agency Comment Specimen source: PD Fluid [...] Volume Laterality 10/19/2021 10/20/2021 12:1 9 PM DOUBLER OPERATOR Narrative APS SPECTRA [facility] - 10/20/2021 Unless otherwise specified, test(s) performed at: [facility], [address] [place] [address] ER RN: Steve Younger M.D. For any questions, please [...] / Volume Laterality 10/19/2021 10/20/2021 9:08 AM DOUBLER OPERATOR Narrative [facility]PS SPECTRA [facility] - 10/20/2021 Unless otherwise specified, test(s) performed at: [facility], [address] [place], [place] [address] ER RN: Steve Younger M.D. For any questions, please call customer service at FREQUENCY:MONTHLY Resulting Agency Comment Specimen source: Serum Sebastian Charles MD LAB BLOOD ORDERABLES Performing Organization Address City/[facility] Phon e Number APS SPECTRA [facility] PATIENT INFORMATION (10/19/2021) athologist [facility] Urea Volume 43.6 L APS SPECTRA Distribution [facility] (Zoraida) Specimen (Source) Anatomical Collection Method Collection Time Re ceived Time Location / / Volume Laterality 10/19/2021 10/20/2021 11:5 9 AM DOUBLER OPERATOR Narrative [facility]PS S[facility]RA [facility] - 10/20/2021 Unless otherwise specified, test(s) performed at: [facility], [address] [place] [address] ER RN: Steve Younger M.D. For any questions, please call customer service at FREQUENCY:MONTHLY Resulting Agency Comment Specimen source: PD Fluid Sebastian Charles MD LAB BLOOD ORDERABLES Performing Organization Address City/[facility]/ZIP [facility] Phon e Number APS SPECTRA [facility] IMMUNO CHEMISTRY (10/19/2021) P athologist Signature Hep B Surface Negative Negative APS SPECTRA Ag [facility] Specimen (Source) Anatomical Collection Method Collection Time Re ceived Time Location / / Volume Laterality 10/19/2021 10/20/2021 9:08 AM DOUBLER OPERATOR Resulting Agency Comment Specimen source: Serum Sebastian Charles MD LAB BLOOD ORDERABLES Performing Organization Address City/[facility]/ZIP Code Phon e Number APS SPECTRA [facility] PATIENT INFORMATION (10/19/2021) P athologist Signature Patient BSA 1.94 sq. M. [facility]PS SPECTRA [facility] Comment: Normalized values are calculated using t he patient's actual BSA and normalized to the average BSA of 1.73m2. Specimen (Source) Anatomical Collection Method Collection Time Re ceived Time Location / / Volume Laterality 10/19/2021 10/20/2021 9:08 AM DOUBLER OPERATOR Narrative APS SPECTRA [facility] - 10/20/2021 Unless otherwise specified, test(s) performed at: [facility], [address] [place] [address] ER RN: Steve Younger M.D. For any questions, please call customer service at FREQUENCY:MONTHLY Resulting Agency Comment Specimen source: PD Fluid Sebastian Charles MD LAB BLOOD ORDERABLES Performing Organization Address City/[facility] Phon e Number APS SPECTRA [facility] (ABNORMAL) HEMATOLOGY (10/19/2021) [facility] gist Method Time Signature WBC 7.38 4.80 [...] / Volume Laterality 10/19/2021 10/20/2021 8:46 AM DOUBLER OPERATOR Narrative APS SPECTRA [facility] - 10/20/2021 Unless otherwise specified, test(s) performed at: [facility], [address] [place], [place] [address] ER RN: Steve Younger M.D. For any questions, please call customer service at FREQUENCY:MONTHLY Resulting Agency Comment Specimen source: Blood Sebastian Charles MD LAB BLOOD ORDERABLES Performing Organization Address City/[facility] Phon e Number APS SPECTRA [facility] [...] 10/20/2021 Unless otherwise specified, test(s) performed at: [facility], [address] [place] [address] ER RN: Steve Younger M.D. For any questions, please call customer service at FREQUENCY:MONTHLY Resulting Agency Comment Specimen source: PD Fluid Sebastian Charles MD LAB BLOOD ORDERABLES Performing Organization Address City/[facility] Phon e Number APS SPECTRA [facility] documented in this encounter Visit Diagnoses Not on filedocumented in this encounter Care Teams Sucker Machine Operator Relationship Specialty Start Date End Date Harish Silver MD PCP - General 05/17/19 [address] [place] [place] [address] documented as of this encounter
--- OUTSIDE RECORDS SUMMARY | 2022-04-17 15:54 | XMS_ITS | Clinical Summary ---
:1940 Author Organization [facility] Address [address] [place] [address] Phone Care Team Providers Name Role Phone Harish Silver MD Primary Care Provider Encounters Date Type Specialty Care Team Description 03/30/2022 Orders Only Nephrology Sebastian Charles MD 03/30/2022 Treatment Sebastian Charles MD 03/02/2022 Orders Only NephSebastian Pandey MD 03/02/2022 Treatment Sebastian Charles MD 01/26/2022 Orders Only Nephrology Sebastian Charles MD 01/26/2022 Treatment Sebastian Charles MD from Last 3 Months Immunizations Name [...] Results (ABNORMAL) HEMATOLOGY (03/30/2022)Only the most recent of3 resultswithin the time period is included. [facility] gist Method Time Signature WBC 6.97 4.80 [...] 03/31/2022 Unless otherwise specified, test(s) performed at: [facility], [address] [place] [address], [place] [address] WOOD MILL SUPERVISOR: Dariel Doyle M.D., Ph.D For any questions, please call customer service at FREQUENCY:MONTHLY Resulting Agency Comment Specimen source: Blood Sebastian Charles MD LAB BLOOD ORDERABLES Performing Organization Address City/State/ZIP Code Phon e Number APS SPECTRA [facility] (ABNORMAL) Spectrae Chemistry (03/30/2022)Only the most recent of4 resultswithin the time period is included. [facility] gist Method Time Signature BUN 76 (H) [...] 03/31/2022 Unless otherwise specified, test(s) performed at: [facility], [address] [place] [address], [place] [address] WOOD MILL SUPERVISOR: Dariel Doyle M.D., Ph.D For any questions, [...] have been corrected fo r glucose interference. [facility] glucose correction factor f or creatinine is [...] AND STOOLS O [place] Performing Organization Address City/[facility]/ZIP Code Phon e Number APS SPECTRA [facility] PD ADEQUACY (03/02/2022)Only the most recent of2 resultswithin the time period is included. athologist Signature Kt/V, Residual 1.04 [facility]PS [facility] Creat Clear, 129 L/wk APS SPECTRA Urine Nor Wkly [facility] Specimen (Source) Anatomical Collection Method Collection Time Re ceived Time Location / / Volume Laterality 03/02/2022 03/03/2022 2:52 AM CDT Narrative APS SPECTRA [facility] - 03/03/2022 Unless otherwise specified, test(s) performed at: [facility], [address] [place] [address], [place] [address] WOOD MILL SUPERVISOR: Dariel Doyle M.D., Ph.D For any questions, please call customer service at FREQUENCY:MONTHLY Resulting Agency Comment Specimen source: Urine Sebastian Charles MD LAB BODY FLUIDS AND STOOLS O RDBEBE Performing Organization Address City/State/ZIP Code Phon e Number APS SPECTRA [facility] PATIENT INFORMATION (03/02/2022)Only the most recent of3 resultswithin the time period is included. athologist Signature Patient BSA 1.90 sq. M. [facility] Comment: Normalized values are calculated using t he patient's actual BSA and normalized to the average BSA of 1.73m2. Specimen (Source) Anatomical Collection Method Collection Time Re ceived Time Location / / Volume Laterality 03/02/2022 03/03/2022 6:13 AM CDT Narrative APS SPECTRA [facility] - 03/03/2022 Unless otherwise specified, test(s) performed at: [facility], [address] [place] [address] [place] [address] WOOD MILL SUPERVISOR: Dariel Doyle M.D., Ph.D For any questions, please call customer service at FREQUENCY:MONTHLY Resulting Agency Comment Specimen source: PD Fluid Sebastian Charles MD LAB BLOOD ORDERABLES Performing Organization Address City/State/ZIP Code Phon e Number APS SPECTRA [facility] from Last 3 Months Insurance Payer Benefit Plan / Subscriber ID Effective Dates Phone Addre ss Type Group [facility] MEDIC[facility] AARP MEDICARE [id number] 2021-Presen [phone] [address] [address] COMPLETE t 0 [facility] ([id number]) [place] [address] Care Teams Title Specialist Relationship Specialty Start Date End Date Harish Silver MD PCP - General 05/17/19 [address] [place] [address]
--- OUTSIDE RECORDS SUMMARY | 2022-04-17 15:55 | XMS_ITS | Encounter Summary ---
:1940 Author Organization [facility] Address [address] [place] [address] Care Team Providers Name Role Phone Harish Silver MD Primary Care Provider Encounter Details Date Type Department Care Team Description 05/25/2021 Documentation Only [facility] Harish Maxwell MD [place] [address] [place] [address] [address] [place] [address] Social History Tobacco Use Types Packs/Day Years Used Date Smoking Tobacco: Never Alcohol Use Standard Drinks/Week Comments No 0 (1 standard drink = 0.6 oz pure alcoho l) Sex Assigned at Date Recorded Not on file documented as of this encounter Plan of Treatment Not on filedocumented as of this encounter Visit Diagnoses Not on filedocumented in this encounter Care Teams Hotel Casino Floorperson Relationship Specialty Start Date End Date Harish Silver MD PCP - General 05/17/19 [address] [place] [address] documented as of this encounter
--- OUTSIDE RECORDS SUMMARY | 2022-04-17 15:55 | XMS_ITS | Encounter Summary ---
:1940 Author Organization [facility] Address [address] [place] [address] Care Team Providers Name Role Phone Harish Silver MD Primary Care Provider Encounter Details Date Type Department Care Team Description 09/15/2021 Treatment [facility] Sebastian Jimenez MD [address] [place], [place] [phone] (Wo rk) Social History Tobacco Use Types [...] Name: David Castro : 1940 Chart #: [id number] Sex: M Has the patient previously been [...] on filedocumented in this encounter Care Teams Head Chopper Relationship Specialty Start Date End Date Harish Silver MD PCP - General 05/17/19 [address] [place] [address] documented as of this encounter
--- OUTSIDE RECORDS SUMMARY | 2022-04-17 15:55 | XMS_ITS | Encounter Summary ---
:1940 Author Organization [facility] Address [address] [place] [address] Care Team Providers Name Role Phone Harish Silvre MD Primary Care Provider Encounter Details Date Type Department Care Team Description 09/22/2021 Orders Only [facility] f Sebastian Mohan MD [phone] [place] [address] [place], [place] [phone] (Wo rk) Social History Tobacco Use [...] / Volume Laterality 09/22/2021 09/23/2021 1:41 PM BATCH MIXER Narrative [facility] - 09/24/2021 Unless otherwise specified, test(s) performed at: [facility], [address] [place] [address] FIRE CONTROL SYSTEM INSTALLER: Steve Younger M.D. For any questions, please call customer service at FREQUENCY:MONTHLY Resulting Agency Comment Specimen source: Plasma Sebastian Charles MD LAB BLOOD ORDERABLES Performing Organization Address City/State/[facility] Phon e Number [facility] IMMUNO CHEMISTRY (09/22/2021) P athologist Signature Hep B Surface Negative Negative [facility] Ag [facility] Specimen (Source) Anatomical Collection Method Collection Time Re ceived Time Location / / Volume Laterality 09/22/2021 09/23/2021 3:00 PM BATCH MIXER Narrative [facility] - 09/23/2021 Unless otherwise specified, test(s) performed at: [facility], [address] [place] [address] FIRE CONTROL SYSTEM INSTALLER: Steve Younger M.D. For any questions, please call customer service at FREQUENCY:MONTHLY Resulting Agency Comment Specimen source: Serum Sebastian Charles MD LAB BLOOD ORDERABLES Performing Organization Address City/State/[facility] Code Phon e Number [...] / Volume Laterality 09/22/2021 09/23/2021 3:00 PM BATCH MIXER Narrative [facility] - 09/23/2021 Unless otherwise specified, test(s) performed at: [facility], [address] [place] [address] FIRE CONTROL SYSTEM INSTALLER: Steve Younger M.D. For any questions, please call customer service at FREQUENCY:MONTHLY Resulting Agency Comment Specimen source: Serum Sebastian Charles MD LAB BLOOD ORDERABLES Performing Organization Address City/State/ZIP Code Phon e Number [facility] (ABNORMAL) HEMATOLOGY (09/22/2021) [facility] gist Method Time Signature WBC 4.99 [...] / Volume Laterality 09/22/2021 09/23/2021 1:30 PM BATCH MIXER Narrative [facility]PS [facility] - 09/23/2021 Unless otherwise specified, test(s) performed at: [facility], [address] [place] [address] FIRE CONTROL SYSTEM INSTALLER: Steve Younger M.D. For any questions, please call customer service at FREQUENCY:MONTHLY Resulting Agency Comment Specimen source: Blood Sebastian Charles MD LAB BLOOD ORDERABLES Performing Organization Address City/State/ZIP Code Phon e Number [facility] documented in this encounter Visit Diagnoses Not on filedocumented in this encounter Care Teams Chief Load Dispatcher Relationship Specialty Start Date End Date Harish Silver MD PCP - General 05/17/19 [address] [place] [address] documented as of this encounter
--- OUTSIDE RECORDS SUMMARY | 2022-04-17 15:55 | XMS_ITS | Encounter Summary ---
:1940 Author Organization [facility] Address [address] [place] [address] Care Team Providers Name Role Phone Harish Silver MD Primary Care Provider Encounter Details Date Type Department Care Team Description 09/22/2021 Treatment [facility] Sebastian Jimenez MD [address] [place], [place] [phone] (Wo rk) Social History Tobacco Use Types [...] Name: David Castro : 1940 Chart #: [id number] Sex: M This patient was personally seen for a complete visit as part of routine monthly dialysis care. A review of the dialysis treatment, blood pressure, estimated dry weight, and recent lab values was made.These were discussed with the patient and staff as necessary. UPPER TIER: Sebastian Charles MD LOCATION: [phone] SCHEDULE: No Routine Schedule Subjective 09/22/21: Georges [...] on filedocumented in this encounter Care Teams Post Hole Digging Machine Operator Relationship Specialty Start Date End Date Harish Silver MD PCP - General 05/17/19 [address] [place] [address] documented as of this encounter
--- OUTSIDE RECORDS SUMMARY | 2022-04-17 15:55 | XMS_ITS | Encounter Summary ---
:1940 Author Organization [facility] Address [address] [place] [address] Care Team Providers Name Role Phone Harish Silver MD Primary Care Provider Encounter Details Date Type Department Care Team Description 10/06/2021 Orders Only [facility] f Sebastian Mohan MD [phone] [place] [address] [place], [place] [phone] (Wo rk) Social History Tobacco Use [...] / Volume Laterality 10/06/2021 10/07/2021 8:46 PM WAREHOUSE ORDER SELECTOR Narrative [facility]PS [facility]RA [facility] - 10/08/2021 Unless otherwise specified, test(s) performed at: [facility], [address] [place] [address] REPAIR CAMERAMAN: Steve Younger M.D. For any questions, please call customer service at FREQUENCY:OTHER Resulting Agency Comment Specimen source: Serum Sebastian Charles MD LAB BLOOD ORDERABLES Performing Organization Address City/State/ZIP Code Phon e Number [facility] documented in this encounter Visit Diagnoses Not on filedocumented in this encounter Care Teams Customer Account Representative Relationship Specialty Start Date End Date Harish Silver MD PCP - General 05/17/19 [address] [place] [address] documented as of this encounter
--- OUTSIDE RECORDS SUMMARY | 2022-04-17 15:55 | XMS_ITS | Encounter Summary ---
:1940 Author Organization [facility] Address [address] [place] [address] Care Team Providers Name Role Phone Harish Silver MD Primary Care Provider Encounter Details Date Type Department Care Team Description 05/25/2021 Documentation Only [facility] Harish Maxwell MD [place] [address] [place] [address] 220 [place] [address] Social History Tobacco Use Types Packs/Day Years Used Date Smoking Tobacco: Never Alcohol Use Standard Drinks/Week Comments No 0 (1 standard drink = 0.6 oz pure alcoho l) Sex Assigned at Date Recorded Not on file documented as of this encounter Plan of Treatment Not on filedocumented as of this encounter Visit Diagnoses Not on filedocumented in this encounter Care Teams Discotheque Dancer Relationship Specialty Start Date End Date Harish Silver MD PCP - General 05/17/19 [address] [place] [address] documented as of this encounter
--- OUTSIDE RECORDS SUMMARY | 2022-04-17 15:55 | XMS_ITS | Encounter Summary ---
:1940 Author Organization [facility] Address [address] [place] [address] Care Team Providers Name Role Phone Harish Silver MD Primary Care Provider Encounter Details Date Type Department Care Team Description 09/01/2021 Telephone [facility] f Yessica Patten, [place] [phone] [place] [address] [address] [place] [address] (Wo rk) Social History Tobacco [...] AM CST VO from Dr. Charles- Start [facility] admission process. He will be starting PD at [facility] last week of August. Already has PD catheter. Completed [facility] Admission in the portal. documented in this encounter Plan of Treatment Not on filedocumented as of this encounter Visit Diagnoses Not on filedocumented in this encounter Care Teams Innovation Manager Relationship Specialty Start Date End Date Harish Silver MD PCP - General 05/17/19 [address] [place] [address] documented as of this encounter
--- OUTSIDE RECORDS SUMMARY | 2022-04-17 15:55 | XMS_ITS | Encounter Summary ---
:1940 Author Organization [facility] Address [address] [place] [address] Care Team Providers Name Role Phone Harish Silver MD Primary Care Provider Encounter Details Date Type Department Care Team Description 09/13/2021 Orders Only [facility] f Sebastian Mohan MD [phone] [place] [address] [place], [place] [phone] (Wo rk) Social History Tobacco Use [...] in this encounter Results (ABNORMAL) HEMATOLOGY (09/13/2021) [facility] Method Time Signature WBC 6.99 4.80 - [...] / Volume Laterality 09/13/2021 09/14/2021 8:39 PM ICER HAND Narrative [facility]PS [facility]RA [facility] - 09/14/2021 Unless otherwise specified, test(s) performed at: [facility], [address] [place] [address] TOP LOADER: Steve Younger M.D. For any questions, please call customer service at FREQUENCY:MONTHLY Resulting Agency Comment Specimen source: Blood Sebastian Charles MD LAB BLOOD ORDERABLES Performing Organization Address City/State/ZIP Code Phon e Number [facility] TRACE ELEMENTS (09/13/2021) athologist Signature Aluminum <5 0 - 10 [facility] mcg/L [facility] Comment: This test was developed and its performa nce characteristics determined by [facility]. It has not been cleared or approved by the FDA. The laboratory is regulated under CLIA a s qualified to perform high complexity testing. This test is used fo r clinical purposes. It should not be regarded as investigational or fo r research. Specimen (Source) Anatomical Collection Method Collection Time Re ceived Time Location / / Volume Laterality 09/13/2021 09/14/2021 1:33 PM ICER HAND Narrative [facility]PS [facility] - 09/14/2021 Unless otherwise specified, test(s) performed at: [facility], [address] [place], [place] [id number] TOP LOADER: Steve Younger M.D. For any questions, please [...] / Volume Laterality 09/13/2021 09/14/2021 1:06 PM ICER HAND Narrative [facility]PS S[facility]RA [facility] - 09/14/2021 Unless otherwise specified, test(s) performed at: [facility], [address] [place], [place] [id number] TOP LOADER: Steve Younger M.D. For any questions, please call customer service at FREQUENCY:MONTHLY Resulting Agency Comment Specimen source: Serum Sebastian Charles MD LAB BLOOD BANK TEST ORDERABL ES Performing Organization Address City/[facility]/ZIP [facility] Phon e Number APS SPECTRA [facility] [...] / Volume Laterality 09/13/2021 09/14/2021 1:06 PM ICER HAND Resulting Agency Comment Specimen source: Serum Sebastian Charles MD LAB BLOOD ORDERABLES Performing Organization Address City/State/ZIP Code Phon e Number APS SPECTRA [facility] (ABNORMAL) Spectrae Chemistry (09/13/2021) [facility] gist Method Time Signature BUN 73 [...] / Volume Laterality 09/13/2021 09/14/2021 1:06 PM ICER HAND Narrative APS S[facility]RA [facility] - 09/14/2021 Unless otherwise specified, test(s) performed at: [facility], [address] [place] [address] TOP LOADER: Steve Younger M.D. For any questions, please [...] / Volume Laterality 09/13/2021 09/14/2021 1:13 PM ICER HAND Narrative APS SPECTRA [facility] - 09/14/2021 Unless otherwise specified, test(s) performed at: [facility], [address] [place] [address] TOP LOADER: Steve Younger M.D. For any questions, please call customer service at FREQUENCY:MONTHLY Resulting Agency Comment Specimen source: Plasma Sebastian Charles MD LAB BLOOD ORDERABLES Performing Organization Address City/State/ZIP Code Phon e Number [facility]PS S[facility]RA [facility] documented in this encounter Visit Diagnoses Not on filedocumented in this encounter Care Teams Director [place] Sales Relationship Specialty Start Date End Date Harish Silver MD PCP - General 05/17/19 [address] [place] [address] documented as of this encounter
--- OUTSIDE RECORDS SUMMARY | 2022-04-17 15:55 | XMS_ITS | Encounter Summary ---
:1940 Author Organization [facility] Address [address] [place] [address] Care Team Providers Name Role Phone Harish Silver MD Primary Care Provider Encounter Details Date Type Department Care Team Description 09/13/2021 Treatment [facility] Sebastian Jimenez MD [address] [place], [place] [phone] (Wo rk) Social History Tobacco Use Types [...] Name: David Castro : 1940 Chart #: [id number] Sex: M Patient Type: ESRD Modality: Peritoneal Dialysis Clinical Specialist Vascular: Sebastian Charles MD Location: [phone] Schedule: No Routine Schedule Initial Access Date [...] on filedocumented in this encounter Care Teams Crew Foreman Relationship Specialty Start Date End Date Harish Silver MD PCP - General 05/17/19 [address] [place] [address] documented as of this encounter
--- OUTSIDE RECORDS SUMMARY | 2022-04-17 15:55 | XMS_ITS | Continuity of Care Document ---
:1940 Author Organization [facility] Address [address] [address] [place] [address] Phone Care Team Providers Name Role Phone [...] No Sanjay [facility] Information Surya. [facility], [address] [place] [address], [address] [place], [facility] [address], , [place], [place] [id number], , [place], [id number], tel:[phone] tel:[phone] FACUNDO LOREDO AchalasiaHema Asad MOISE Referr ing [facility]. Provid er: [facility], Center satya of cardia [address] [place] [place] [address], [address], [address] [place] [address], [address] [facility], [place], [place] 60, [id number], , [place], [place], [id number], [place], [address]. tel:[phone] [place]. tel:[phone] tel:[phone] FACUNDO [place] Achalasia of [facility] Referr ing Digestive FACUNDO cardiaGastro- MD Malin. Provide r: Health [facility], Endoscopy esophageal [address] [place], [address], disease [address], [address] [place] esophagitis, [address], [address] [place], [place], without [place] [address], [id number], bleedingOth , [place], [place], [place] congenital [id number], [place], [address]. tel:[phone] malformations [place]. tel:[phone] of upper tel:[phone] alimentary 354116 tractAchalasi a of cardia NVGI [place] No Quoc- [facility] NVGI Information MD Malin. [facility], Endoscopy [address] [facility] [address], [address] [place], [facility] [address], s, [place], [place] [id number], , [place], [place] [id number], tel:[phone]. [phone] tel:[phone] [facility] GI Achalasia Gerri MOISE Referring Digestive Clinic Symptoms - Marcelo. Provider: [facility], or [address] [facility] Joe MOISE, [address], ([address] [place], [address] [place] [address] complaint) [address], [address], [place], [place] [address], [id number], , [place], [place], [place] [id number], [place], [address]. tel: [place]. tel:[phone] tel:[phone] Init Hosp-da [facility] [place] No Rima MOISE Referring E&m Mod Digestive [facility] Information Viki. [address] P rovider: [facility] [place], Hosp 1 [place] Vikiamanda Post r [facility] MD Lyric SWEET, [address] [address], [address], [facility] s, [place], , [place], [address], [id number], [id number], [place], [place]. [place], tel:+ tel:[phone]. [phone] tel:-[phone] [facility] [place] Achalasia Rima MOISE Digestive [facility] Viki. [address] Health [place], Hosp 1 [facility], [address], [address], [place], [place], , [place], [id number], [id number], [place]. tel: tel:[phone] Offic/outpt [facility] [place] GI Achalasia Apr- Lisa PAC Refe nicolaing E&m [facility] Symptoms 8[address] [place]. [address] Provid er: [facility], or [address] [place] [address] [address], Andreea MOISE [address], ([address], L, [address] [place] complaint) [place] Malachi son [place], [place], , [place], [address], [id number], [id number], [facility] [place], [address]. tel: tel: tel: [phone] Family History Family Member Type Diagnosis Age [...] Other Registry tetanus toxoid, reduced administered Note: [place] IC bi-directional diphtheria toxoid, and acellular interface [...] Registry Payers Payer name Insurance type Covered libertarian ID Authorization(s ) [employer] Medicare Advantage [id number] [facility] [id number] Social History Type Description Quantity Date Captured [...] worsened. He has undergone workup at the [facility] and reports undergoing a n EGD in February and then having a repeat EGD with pneumatic balloon dilation about 3 wee ks ago at their facility. Since the balloon di lation, he was admitted at [facility] and due to complaints of dysphagia at [...]
== END 2022-04-14 14:52 | disposition home or self-care (01) ==
LOC: AMB 04-17 15:47
PROVIDERS: PCP Family Medicine; Visit Provider Family Medicine
DX: R53.1 Weakness (principal); R55 Syncope and collapse; R11.2 Nausea with vomiting, unspecified
CPT/HCPCS: A0425; A0426

== ENCOUNTER 2022-05-13 07:05 | Emergency (ER) | payer MEDICARE, OTHER, SELFPAY ==
[2022-05-13 07:14] VITALS: BP 132/77; PULSE 82; RESP 16; TEMP 36.6; O2SAT 96; BMI 25.1
[2022-05-13 07:30] VITALS: BP 112/67; PULSE 77; O2SAT 96
--- NOTE | 2022-05-13 07:38 | ED_ITS ---
HPI - General Adult General Date Seen: 05/13/22 <Tina Grady MD - Last Filed: 05/13/22 07:44> Chief complaint: GI Bleed <Tina Grady MD - Last Filed: 05/13/22 07:44> Stated complaint: vomitting blood <Tina Grady MD - Last Filed: 05/13/22 07:44> Time Seen by Provider: 05/13/22 07:24 <Tina Grady MD - Last Filed: 05/13/22 07:44> Source: patient <Tina Grady MD - Last Filed: 05/13/22 07:44> History of Present Illness HPI narrative: Patient is an 81-year-old male here with his for vomiting blood. Symptoms started on Monday night, presents early Monday morning to be seen. He has had multiple episodes he says, not sure how many. Sometimes he indicates a smaller amount, he says once he filled 2/3 of the ice cream bucket that they have with him. He does take Coumadin for atrial fibrillation. He has history of achalasia, has had multiple scopes and dilations for that. Most recently was seen here at the end of March with GI bleed, transferred to [facility] at that time apparently was found to have multiple esophageal ulcerations. His tells me that he was discharged on Carafate, but then was told not to use that because of his renal disease. He reports black stools. He denies any chest or abdominal pain. He has not had any lightheadedness or fainting, but says he is fatigued. <Tina Grady MD - Last Filed: 05/13/22 07:44> Related Data Home medications: Home Medications Medication Instructions Recorded Confirmed allopurinol 100 mg tablet mg 03/31/22 calcitriol 0.25 mcg capsule mcg 03/31/22 docusate sodium 100 mg tablet mg PO 03/31/22 metoprolol tartrate 25 mg tablet mg 03/31/22 omeprazole 20 mg capsule,delayed mg 03/31/22 release torsemide 20 mg tablet mg 03/31/22 vitamin B complex-vitamin C 100 tab 03/31/22 mg-folic acid 1 mg tablet (Dialyvite) warfarin 2 mg tablet mg 03/31/22 <Tina Grady MD - Last Filed: 05/13/22 07:44> Allergies/adverse reactions: Allergies Allergy/AdvReac Type Severity Reaction Status Date / Time carbamazepine [From Tegretol] Allergy Verified 05/13/22 07:20 <Tina Grady MD - Last Filed: 05/13/22 07:44> Review of Systems Status of ROS: Reports: 10 or more systems reviewed and unremarkable except as noted in History and below <Tina Grady MD - Last Filed: 05/13/22 07:44> [facility] Medical History: Medical History Achalasia Afib Anxiety Gout Heart failure History of intracranial abscess HTN (hypertension) Hypothyroidism ELENI (obstructive sleep apnea) Osteopenia <Tina Grady MD - Last Filed: 05/13/22 07:44> Social History: Social History Smoking Status: Former smoker What tobacco products do you use: cigarettes Smoking quit date/years: >15 years ago Do you use any of these nicotine containing products: None Second hand tobacco smoke exposure: No How often do you have a drink containing alcohol: never How often do you have six or more drinks on one occasion: Never AUDIT-C Alcohol total score: 0 Non-prescribed substance use: denies use <Tina Grady MD - Last Filed: 05/13/22 07:44> Exam Narrative: Exam Narrative: Vital signs as noted above. In general, an alert, well-appearing patient. Head: Normocephalic, atraumatic. Eyes: Pupils are equal reactive. Extraocular movements are full. Conjunctivae are normal. ENT: Mucous membranes are moist. Throat is normal. Neck: Supple without lymphadenopathy. Heart: Irregular, systolic murmur heard best at the right sternal border. Lungs: Clear bilaterally. No increased work of breathing, crackles or wheezes. Abdomen: Soft and nontender. No organomegaly. Extremities: Well perfused. No edema. No calf tenderness. Pulses intact. Neurologic: Patient is alert and oriented to person and place. Speech is fluent. Face is symmetric. Moves all extremities equally. Affect: Normal. Skin: Warm and dry. Well perfused. <Tina Grady MD - Last Filed: 05/13/22 07:44> Const: Vital Signs, click to edit/add: Vital Signs - 24 hr 05/13/22 07:14 05/13/22 07:30 05/13/22 08:00 Temperature 97.9 F Pulse Rate [Right Femoral] 82 77 Pulse Rate [Right Pulse Oximeter] Respiratory Rate 16 Blood Pressure [Ri ght Upper Arm] 132/77 112/67 125/59 L Pulse Oximetry 96 96 Oxygen Delivery Me thod Room Air 05/13/22 08:30 05/13/22 09:00 05/13/22 09:30 Temperature 97.6 F Pulse Rate [Right Femoral] Pulse Rate [Right Pulse Oximeter] 66 68 69 Respiratory Rate 18 18 25 H Blood Pressure [Ri ght Upper Arm] 114/59 L 108/65 113/52 L Pulse Oximetry 98 98 98 Oxygen Delivery Me thod Room Air Room Air Room Air <Tina Grady MD - Last Filed: 05/13/22 07:44> Vital Signs, click to edit/add: Vital Signs - 24 hr 05/13/22 07:14 05/13/22 07:30 05/13/22 08:00 Temperature 97.9 F Pulse Rate [Right Femoral] 82 77 Pulse Rate [Right Pulse Oximeter] Respiratory Rate 16 Blood Pressure [Ri ght Upper Arm] 132/77 112/67 125/59 L Pulse Oximetry 96 96 Oxygen Delivery Me thod Room Air 05/13/22 08:30 05/13/22 09:00 05/13/22 09:30 Temperature 97.6 F Pulse Rate [Right Femoral] Pulse Rate [Right Pulse Oximeter] 66 68 69 Respiratory Rate 18 18 25 H Blood Pressure [Ri ght Upper Arm] 114/59 L 108/65 113/52 L Pulse Oximetry 98 98 98 Oxygen Delivery Me thod Room Air Room Air Room Air <Tejal Ortiz MD - Last Filed: 05/13/22 10:44> Documenting provider has reviewed patient's vital signs: yes <Tina Grady MD - Last Filed: 05/13/22 07:44> Course Course Hospital Course: Currently vital signs are stable. We will place an IV here, draw labs including a type and screen. I have reviewed his records including his last visit. Hemoglobin at that time was 13. Will need to see what his hemoglobin is and what his INR is. Thus far he has not had any vomiting here. Assuming he ne eds admission, question will be whether admission here is appropriate verses needing transfer. His gastroenterology history is complex, and so if a procedure is needed he will likely need transfer to a different facility. It appears that last time a discussion had been undertaken about placing a G-tube, but apparently that was not ultimately done. This patient will be signed out to the oncoming physician to follow-up on labs and determine a final plan. Labs were unremarkable aside from hemoglobin went from 13 last time he was here to 11. He has a chronically elevated troponin and he is at his baseline. Other labs are at baseline. While he was here he did not have any episode of hematemesis but I was made aware of. He remained hemodynamically stable. I did call [facility] who did not have any capacity for admission. Therefore we reach back out to [facility] who did except the patient for admission. <Tina Grady MD - Last Filed: 05/13/22 07:44> Vital Signs Vital signs: Initial Vital Signs Temperature 97.9 F 05/13/22 07:14 Temperature Source Temporal Artery Scan 05/13/22 07:14 Pulse Rate 82 05/13/22 07:14 Respiratory Rate 16 05/13/22 07:14 Blood Pressure 132/77 05/13/22 07:14 Blood Pressure Mean 95 05/13/22 07:14 Blood Pressure Position Sitting 05/13/22 07:14 Pulse Oximetry 96 05/13/22 07:14 Oxygen Delivery Method 05/13/22 07:14 Vital Signs Temperature 97.9 F 05/13/22 07:14 Pulse Rate 82 05/13/22 07:14 Respiratory Rate 16 05/13/22 07:14 Blood Pressure 132/77 05/13/22 07:14 Pulse Oximetry 96 05/13/22 07:14 Oxygen Delivery Method 05/13/22 07:14 Temperature 97.6 F 05/13/22 09:30 Pulse Rate 69 05/13/22 09:30 Respiratory Rate 25 H 05/13/22 09:30 Blood Pressure 113/52 L 05/13/22 09:30 Pulse Oximetry 98 05/13/22 09:30 Oxygen Delivery Method 05/13/22 09:30 <Tina Grady MD - Last Filed: 05/13/22 07:44> Initial Vital Signs Temperature 97.9 F 05/13/22 07:14 Temperature Source Temporal Artery Scan 05/13/22 07:14 Pulse Rate 82 05/13/22 07:14 Respiratory Rate 16 05/13/22 07:14 Blood Pressure 132/77 05/13/22 07:14 Blood Pressure Mean 95 05/13/22 07:14 Blood Pressure Position Sitting 05/13/22 07:14 Pulse Oximetry 96 05/13/22 07:14 Oxygen Delivery Method 05/13/22 07:14 Vital Signs Temperature 97.9 F 05/13/22 07:14 Pulse Rate 82 05/13/22 07:14 Respiratory Rate 16 05/13/22 07:14 Blood Pressure 132/77 05/13/22 07:14 Pulse Oximetry 96 05/13/22 07:14 Oxygen Delivery Method 05/13/22 07:14 Temperature 97.6 F 05/13/22 09:30 Pulse Rate 69 05/13/22 09:30 Respiratory Rate 25 H 05/13/22 09:30 Blood Pressure 113/52 L 05/13/22 09:30 Pulse Oximetry 98 05/13/22 09:30 Oxygen Delivery Method 05/13/22 09:30 <Tejal Ortiz MD - Last Filed: 05/13/22 10:44> Medical Decision Making MDM Narrative Medical decision making narrative: 81-year-old male with hematemesis, GI bleed-small drop in hemoglobin since last time he was here. Patient will be transferred to [facility] for continued GI care. <Tejal Ortiz MD - Last Filed: 05/13/22 10:44> Medical Records Medical records reviewed: Yes I reviewed the patient's medical records <Tejal Ortiz MD - Last Filed: 05/13/22 10:44> Lab Data Lab results reviewed: Yes I reviewed the patient's lab results <Tejal Ortiz MD - Last Filed: 05/13/22 10:44> Labs: Lab Results 05/13/22 05/13/22 05/13/22 Range/Units 07:51 07:51 07:51 WBC 6.42 (4.50-11.00) K/uL RBC 3.51 L (4.30-5.90) m/uL Hgb 11.0 L (13.5-17.5) gm/dL Hct 35.5 L (37.0-53.0) % MCV 101 H (80-100) fL MCH 31 (26-34) pg MCHC 31 L (32-36) gm/dL RDW Coeff of Cintia 15.3 (11.5-15.5) % Plt Count 188 (140-440) K/uL Neut % (Auto) 86.3 H (42.0-72.0) % Lymph % (Auto) 5.8 L (20-44) % [place] % (Auto) 5.8 (0.0-11.0) % Eos % (Auto) 1.4 (0.0-7.0) % Baso % (Auto) 0.2 (0.0-3.0) % Neut # (Auto) 5.50 (1.7-7.0) K/uL Lymph # (Auto) 0.40 L (0.90-2.90) K/uL [place] # (Auto) 0.40 (0.00-0.90) K/UL Eos # (Auto) 0.09 (0.00-0.50) K/uL Baso # (Auto) 0.01 (0.00-0.30) K/uL Abs Immat Gran (auto) 0.03 (0.00-0.30) K/uL INR 1.97 H (0.91-1.10) APTT 38 H (23-33) Seconds Sodium 140 (135-149) mmol/L Potassium 3.3 L (3.6-5.1) mmol/L Chloride 98 (96-114) mmol/L Carbon Dioxide 36 H (20-32) mmol/L BUN 51 H (7-30) mg/dL Creatinine 3.7 H (0.5-1.5) mg/dL Estimated Creat Clear 15.41 Estimated GFR 16 ml/min Glucose 138 H (60-115) mg/dL Calcium 8.8 (8.4-10.6) mg/dL Total Bilirubin 0.4 (0.1-1.5) mg/dL Direct Bilirubin 0.1 (0.0-0.5) mg/dL AST 27 (12-35) U/L ALT 12 (4-50) U/L Alkaline Phosphatase 228 H (40-150) U/L NT-Pro-B Natriuret Pep 3420 H (0-450) PG/mL Total Protein 6.6 (6.0-8.3) g/dL Albumin 3.4 (3.3-5.0) g/dL SARS-CoV-2 (PCR) (Negative) POC Troponin I (0.01-0.04) ng/ml Blood Type Antibody Screen 05/13/22 05/13/22 05/13/22 Range/Units 07:51 07:51 07:55 WBC (4.50-11.00) K/uL RBC (4.30-5.90) m/uL Hgb (13.5-17.5) gm/dL Hct (37.0-53.0) % MCV (80-100) fL MCH (26-34) pg MCHC (32-36) gm/dL RDW Coeff of Cintia (11.5-15.5) % Plt Count (140-440) K/uL Neut % (Auto) (42.0-72.0) % Lymph % (Auto) (20-44) % Sheridan % (Auto) (0.0-11.0) % Eos % (Auto) (0.0-7.0) % Baso % (Auto) (0.0-3.0) % Neut # (Auto) (1.7-7.0) K/uL Lymph # (Auto) (0.90-2.90) K/uL Sher[place] # (Auto) (0.00-0.90) K/UL Eos # (Auto) (0.00-0.50) K/uL Baso # (Auto) (0.00-0.30) K/uL Abs Immat Gran (auto) (0.00-0.30) K/uL INR (0.91-1.10) APTT (23-33) Seconds Sodium (135-149) mmol/L Potassium (3.6-5.1) mmol/L Chloride (96-114) mmol/L Carbon Dioxide (20-32) mmol/L BUN (7-30) mg/dL Creatinine (0.5-1.5) mg/dL Estimated Creat Clear Estimated GFR ml/min Glucose (60-115) mg/dL Calcium (8.4-10.6) mg/dL Total Bilirubin (0.1-1.5) mg/dL Direct Bilirubin (0.0-0.5) mg/dL AST (12-35) U/L ALT (4-50) U/L Alkaline Phosphatase (40-150) U/L NT-Pro-B Natriuret Pep (0-450) PG/mL Total Protein (6.0-8.3) g/dL Albumin (3.3-5.0) g/dL SARS-CoV-2 (PCR) Negative SARS-CoV-2 (Negative) POC Troponin I 0.08 H (0.01-0.04) ng/ml Blood Type O Positive Antibody Screen NEGATIVE <Tina Grady MD - Last Filed: 05/13/22 07:44> Lab Results 05/13/22 05/13/22 05/13/22 Range/Units 07:51 07:51 07:51 WBC 6.42 (4.50-11.00) K/uL RBC 3.51 L (4.30-5.90) m/uL Hgb 11.0 L (13.5-17.5) gm/dL Hct 35.5 L (37.0-53.0) % MCV 101 H (80-100) fL MCH 31 (26-34) pg MCHC 31 L (32-36) gm/dL RDW Coeff of Cintia 15.3 (11.5-15.5) % Plt Count 188 (140-440) K/uL Neut % (Auto) 86.3 H (42.0-72.0) % Lymph % (Auto) 5.8 L (20-44) % [place] % (Auto) 5.8 (0.0-11.0) % Eos % (Auto) 1.4 (0.0-7.0) % Baso % (Auto) 0.2 (0.0-3.0) % Neut # (Auto) 5.50 (1.7-7.0) K/uL Lymph # (Auto) 0.40 L (0.90-2.90) K/uL [place] # (Auto) 0.40 (0.00-0.90) K/UL Eos # (Auto) 0.09 (0.00-0.50) K/uL Baso # (Auto) 0.01 (0.00-0.30) K/uL Abs Immat Gran (auto) 0.03 (0.00-0.30) K/uL INR 1.97 H (0.91-1.10) APTT 38 H (23-33) Seconds Sodium 140 (135-149) mmol/L Potassium 3.3 L (3.6-5.1) mmol/L Chloride 98 (96-114) mmol/L Carbon Dioxide 36 H (20-32) mmol/L BUN 51 H (7-30) mg/dL Creatinine 3.7 H (0.5-1.5) mg/dL Estimated Creat Clear 15.41 Estimated GFR 16 ml/min Glucose 138 H (60-115) mg/dL Calcium 8.8 (8.4-10.6) mg/dL Total Bilirubin 0.4 (0.1-1.5) mg/dL Direct Bilirubin 0.1 (0.0-0.5) mg/dL AST 27 (12-35) U/L ALT 12 (4-50) U/L Alkaline Phosphatase 228 H (40-150) U/L NT-Pro-B Natriuret Pep 3420 H (0-450) PG/mL Total Protein 6.6 (6.0-8.3) g/dL Albumin 3.4 (3.3-5.0) g/dL SARS-CoV-2 (PCR) (Negative) POC Troponin I (0.01-0.04) ng/ml Blood Type Antibody Screen 05/13/22 05/13/22 05/13/22 Range/Units 07:51 07:51 07:55 WBC (4.50-11.00) K/uL RBC (4.30-5.90) m/uL Hgb (13.5-17.5) gm/dL Hct (37.0-53.0) % MCV (80-100) fL MCH (26-34) pg MCHC (32-36) gm/dL RDW Coeff of Cintia (11.5-15.5) % Plt Count (140-440) K/uL Neut % (Auto) (42.0-72.0) % Lymph % (Auto) (20-44) % [place] % (Auto) (0.0-11.0) % Eos % (Auto) (0.0-7.0) % Baso % (Auto) (0.0-3.0) % Neut # (Auto) (1.7-7.0) K/uL Lymph # (Auto) (0.90-2.90) K/uL [place] # (Auto) (0.00-0.90) K/UL Eos # (Auto) (0.00-0.50) K/uL Baso # (Auto) (0.00-0.30) K/uL Abs Immat Gran (auto) (0.00-0.30) K/uL INR (0.91-1.10) APTT (23-33) Seconds Sodium (135-149) mmol/L Potassium (3.6-5.1) mmol/L Chloride (96-114) mmol/L Carbon Dioxide (20-32) mmol/L BUN (7-30) mg/dL Creatinine (0.5-1.5) mg/dL Estimated Creat Clear Estimated GFR ml/min Glucose (60-115) mg/dL Calcium (8.4-10.6) mg/dL Total Bilirubin (0.1-1.5) mg/dL Direct Bilirubin (0.0-0.5) mg/dL AST (12-35) U/L ALT (4-50) U/L Alkaline Phosphatase (40-150) U/L NT-Pro-B Natriuret Pep (0-450) PG/mL Total Protein (6.0-8.3) g/dL Albumin (3.3-5.0) g/dL SARS-CoV-2 (PCR) Negative SARS-CoV-2 (Negative) POC Troponin I 0.08 H (0.01-0.04) ng/ml Blood Type O Positive Antibody Screen NEGATIVE <Tejal Ortiz MD - Last Filed: 05/13/22 10:44> ECG Data Attestation: I personally reviewed and interpreted this ECG as follows: (Normal sinus rhythm, sinus arrhythmia, pulse 72.) <Tejal Ortiz MD - Last Filed: 05/13/22 10:44> Discharge Plan Discharge Clinical Impression: Hematemesis/vomiting blood, Melena <Tina Grady MD - Last Filed: 05/13/22 07:44> Patient Disposition: Xfer Other <Tina Grady MD - Last Filed: 05/13/22 07:44> Condition: Stable <Tina Grady MD - Last Filed: 05/13/22 07:44> Prescriptions: No Action torsemide 20 mg tablet Label Comments: Take 1 tablet by mouth once a day allopurinol 100 mg tablet warfarin 2 mg tablet omeprazole 20 mg capsule,delayed release(DR/EC) calcitriol 0.25 mcg capsule Label Comments: TAKE 1 CAPSULE BY MOUTH THREE DAYS (TIMES) A WEEK docusate sodium 100 mg tablet PO Label Comments: Take 1 tablet by mouth twice a day as needed - for constipation metoprolol tartrate 25 mg tablet Dialyvite 100-1 mg tablet Label Comments: TAKE 1 TABLET BY MOUTH DAILY WITH DINNER <Tina Grady MD - Last Filed: 05/13/22 07:44> Stand Alone Forms: MyHealth Info Instructions <Tina Grady MD - Last Filed: 05/13/22 07:44>
--- OUTSIDE RECORDS SUMMARY | 2022-05-13 07:43 | XMS_ITS | Clinical Summary ---
:1940 Author Organization [employer] [place] [address] Care Team Providers Name Role Phone Kush Doran MD Primary Care Provider [phone] Viki Abarca MD Unavailable Allergies Active Allergy [...] 3 Active 0.25 mcg a week on [facility] 022 capsuleIndications: Secondary renal hyperparathyroidism (HC) [...] 0 Active 100 mg/mL (1,000 mg) by 022 suspensionIndications: mouth four times Esophageal ulcer with daily before bleeding meals and at bedtime. Take on empty stomach. acetaminophen Take 2 Tablets 30 Tablet 0 08/16/2 D iscontinued (TYLENOL) 325 mg (650 mg) by 2021 ( Pharmacist tabletIndications: CKD mouth every 4 change per (chronic kidney hours if needed medication disease) stage 4, GFR for Pain. Max history 15-29 ml/min (HC) acetaminophen (E-cancel not dose: 4000mg in sent )) 24 hrs. 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) Active Problems Problem Noted Date Idiopathic esophageal varices with bleeding 04/22/2022 Moderate protein-calorie malnutrition 04/22/2022 Coffee ground emesis 04/14/2022 Trapped lung; Right [...] Encounters Date Type Specialty Care Team Description 05/06/2022 Orders Only Lab, [facility] 05/06/2022 Nurse/Clinic Staff Infusion Therapy (Feraheme 2/2) Only 05/06/2022 Anticoagulation 1, [facility] Anticoagulat ion (warfarin) Clinic 05/06/2022 Travel 05/03/2022 Nurse/Clinic Staff Infusion Therapy (Feraheme 1/2) Only 05/03/2022 Travel 05/02/2022 Telephone Andreea, Referral Kush Spence MD 04/29/2022 Orders Only Araceli, <No scans attac hed> Sebastian Berry MD 04/21/2022 Office Visit Votegerald, Hospital F/U (S shailesh Almaguer, MEGHAN Bro 04/16/22, Esopha geal ulcers) MD Marcelo 04/21/2022 Travel 04/18/2022 Patient Outreach Justen Primary RN Care Management; Prisca Costello RN Hospital F/U (L BENITO 54) 04/15/2022 Surgery Ozuna, ESOPHAGOGASTROD UODENOSCOPY WITH MD Tai HEMOSTASIS 04/15/2022 Anesthesia Event Hestness, Juan Pablo Veloz MD 04/15/2022 Travel 04/14/2022 Hospital Encounter Luis Angel, ESRD (end stage renal disease) (HC) (Primary Dx); - MD Paramjit Esophageal ulcer with bleeding 04/16/2022 Jama Davies MD Ellis, Shane Thomas, MD Hospitalists, [facility] Discharge Summary - Paola Tabares MD - 04/16/2022 1:54 PM CDT Images from the original not e were not included. HOSPITALIST DISCHARGE SUMMAR Y ? ? [facility] Admission Date: 04/14/2022 Discharge Date: 04/16/2022 Discharge Plan: David katz was discharged to home. Principal Diagnosis Esophageal Ulcers Hospital Problem List Principal Problem: Coffee ground emesis Active Problems: Generalized anxiety disorde r Gout, unspecified Essential hypertension Paroxysmal atrial fibrillat ion (HC) Anemia in stage 5 chronic k idney disease, not on chronic dialysis (HC) Achalasia; discussed at [facility] [place] [place] tidisciplinary conference 04/29/21. No further procedural intervention. ADDITIONAL COMMENTS REGARDIN G DIAGNOSIS SPECIFICITY Additional Diagnosis [facility] Course Mr. David Castro is a [...] dizziness. Prior to admission: Patient presents to [facility] on 04/13/2022 after multiple episodes of vomiting [...] headaches, vision changes. Patient was admitted to [facility]. He was seen by GI and [...] 5 or > is High Risk): 2 (04/15/222199) NuDESC (>/=2 abnormal): 0 ( 04/15/222199) MOCA: // SLUMS: Discharge Medications Your Home [...] ROCALTROL Take three times a week on MWF's CPAP For diagnoses: ELENI (obstruct lynsey sleep [...] Take 1 Capsule (20 mg) by m out 2 times daily before meals. Doctor's comments: Refills w hen needed torsemide 20 mg tablet For diagnoses: CKD (chronic kidney disease) stage 4, GFR 15-29 ml/min (HC) Commonly known as: DEMADEX Take 1 Tablet (20 mg) by mo [facility] once daily. Doctor's comments: Radha chaparro 1 [...] your medicines These medications were sent to [facility] [address] [place] [address], [address], [facility] [address] Hours: M-F: 8:00am-6:00pm, Sat-Sun: 9:00am-2:00pm sucralfate 100 mg/mL suspens ion Pertinent Findings / Procedu res First weight: [...] kg/m?? GENERAL: Lying in bed, no ac twenty-nine palms distress EYES: Anicteric without inje ction. HEAD, [...] 0518 SODIUM 147* POTASSIUM 3.6 CHLORIDE 108 HU1HRWCW 29 ANIONGAP 10 BUN 99* CREATININE 3.97* [...] adjacent rounded atelectasis. Dictated by Cinthya Conway D @ Jun 16 2021 1:39PM Consultants Encounter Notes Consults from Tina Zhang MD (Nephrology) Consults from Bridgett Lester PA (Physician Branch Account Manager) Diet / Activity / Follow-Up After Discharge [...] need to reschedule your appointment, please call [phone]. [facility] [address] [place] [address] When to follow up: 1 to 5 [...] 24 hours . PATIENT COMMUNICATION Please call [facility] PRISCA GAMEZ at [phone] to schedule a follow up appointment with Coffee Roaster. Primary Care Provider meño kelley up appointment(s) Kush Doran MD When to [...] medical emergency. [facility] The reason you were in the hospital was for an EGD (also called Esophagogastroduodenoscopy) [facility]? You were in the hospital fo r esophageal ulcers with bleeding. Pending Studies Lab results that may not be resulted at time of discharge: (From admission through now) Start Ordered 04/16/22 1130 VITAMIN B12 O NE TIME, RA 04/16/22 1126 Total time spent on discharg e coordination: 35 minutes. Patient was seen and examined today. Spencer Tabares MD Hospitalist, [facility] ? ? [phone] 04/13/2022 Orders Only Scanner <No scans attac hed> 04/08/2022 Orders Only Lab, [facility] Anticoagulation 04/08/2022 Anticoagulation (warfarin) 1, [facility] Anticoagulation 04/08/2022 Travel 03/25/2022 Orders Only Lab, [facility] 03/25/2022 Anticoagulation (warfarin) 1, [facility] Anticoagulation 03/25/2022 Travel 03/24/2022 Refill Kush Doran Refill Requ est MD Bebe (Allopurinol, M etoprolol Tartrate) 03/22/2022 Telephone Sebastian Charles Prior Autho luma Berry MD (calcitrioL (RO CALTROL) 0.25 mcg capsul e DENIED) 03/21/2022 Telephone Kush Doran Anticoagula tion (Annual MD Bebe re-enrollment ) 02/28/2022 Anticoagulation (warfarin) 1, [facility] Anticoagulation 02/25/2022 Orders Only Lab, [facility] 02/25/2022 Travel from Last 3 Months Immunizations Name Administration Dates Next Due AMB Influenza, IIV4 PF (=>6 mos 06/13/2018 Flulaval,Fluzone Fluarix)(Flu Clinic Only) COVID-19 vaccine ([employer] 05/18/2021, 10/14/2020, 30mcg/0.3mL) PF, MDV Hepatitis B [...] in contact with No / Unsu re 05/06/2022 12:16 PM CDT someone who was confirmed or suspected to have Coronavirus/COVID-19? Obstetrics History Last Filed Vital Signs Vital Sign Reading Time Taken Comments Blood Pressure 110/54 05/06/2022 2:06 PM CDT Pulse 64 05/06/2022 2:06 PM CDT Temperature 36.5 ??C (97.7 ??F) 04/16/2022 10:27 AM CDT Respiratory Rate 16 04/16/2022 10:27 AM CDT Oxygen Saturation 100% 05/06/2022 1:26 PM CDT Inhaled Oxygen Concentration - - Weight 79.3 kg (174 lb 12.8 oz) 04/21/2022 10:56 AM CDT Height 172.7 cm (5' 8) 04/21/2022 10:56 AM CDT Body Mass Index 26.58 04/21/2022 10:56 AM CDT Plan of Treatment Upcoming Encounters Date Type Specialty Care Team Description 05/20/2022 Orders Only Lab, [facility] 05/30/2022 Office Visit Kush Doran MD [address] [place] [address] [phone] (Wo rk) Health Maintenance Due Date Last [...] (ht and wt on same day) for 04/21/2023 04/21/2022, 07/22, age 18+ 05/28/2021, Additional history exists Tetanus booster 07/10/2024 07/10/2014, 03/18/2008 Tdap Completed 07/10/2014 Pneumococcal series for age 65+ Completed 11/05/2014, 01/19 Zoster (shingles) series for age Completed 02/14/2019, , 50+ 04/08/2010 Medical Devices Implanted Type Area Affiliate Marketing Specialist Device Shelf Model / Identifier Expiration Serial / Date Lot Cath Dial Adlt Std Merit Classic Peritoneal Perc N/A: Abdome n 05/14/2024 CF- [id number] / Implanted: Qty: 1 on 08/16/2021 by Clayton Burgess MD at [facility] / Description: CATH DIAL ADLT STD MERIT CL ASSIC PERITONEAL PERC Procedures Procedure Name Priority Date/Time Associated Comments Diagnosis INR,POCT Routine 05/06/2022 Paroxysmal atrial Results fo r 1:54 PM CDT fibrillation (HC ) this procedure Anticoagulation are in the monitoring, INR results range 2-3 section. CBC WITH AUTO DIFFERENTIAL Routine 04/21/2022 Upper GI bleed Results for 10:50 AM CDT this procedure are in the results section. CBC WITH AUTO DIFFERENTIAL Routine 04/21/2022 Upper GI bleed Results for 10:50 AM CDT this procedure are in the results section. SCAN CORRESP-EKG RESULTS 04/19/2022 Res ults for 6:24 AM CDT this procedure are in the results section. VITAMIN B12 RA 04/16/2022 Results for 6:37 AM CDT this procedure are in the results section. IRON PLUS IRON BINDING CAP Early AM 04/16/2022 R esults for 6:37 AM CDT this procedure are in the results section. HEMOGLOBIN Early AM 04/16/2022 Results for 6:37 AM CDT this procedure are in the results section. BASIC METABOLIC PANEL Early AM 04/16/2022 Result s for 6:37 AM CDT this procedure are in the results section. SCAN CORRESP-IMAGING 04/16/2022 Results for 12:00 AM CDT this procedure are in the results section. ENDOSCOPY 04/15/2022 Results for 4:25 PM CDT this procedure are in the results section. ESOPHAGOGASTRODUODENOSCOPY WITH 04/15/2022 esophagea l ulcer, DILATION 4:24 PM CDT achalasia ESOPHAGOGASTRODUODENOSCOPY WITH 04/15/2022 esophagea l ulcer, BIOPSY 4:24 PM CDT achalasia ESOPHAGOGASTRODUODENOSCOPY WITH 04/15/2022 esophagea l ulcer, HEMOSTASIS 4:24 PM CDT achalasia HEMOGLOBIN Today 04/15/2022 Results for 10:59 AM CDT this procedure are in the results section. FERRITIN RA 04/15/2022 Results for 5:18 AM CDT this procedure are in the results section. CBC WITH AUTO DIFFERENTIAL Early AM 04/15/2022 R esults for 5:18 AM CDT this procedure are in the results section. PROTIME-INR Early AM 04/15/2022 Results for 5:18 AM CDT this procedure are in the results section. CBC WITH AUTO DIFFERENTIAL Early AM 04/15/2022 R esults for 5:18 AM CDT this procedure are in the results section. BASIC METABOLIC PANEL Early AM 04/15/2022 Result s for 5:18 AM CDT this procedure are in the results section. HEMOGLOBIN Today 04/14/2022 Results for 10:47 PM CDT this procedure are in the results section. CBC WITH AUTO DIFFERENTIAL Today 04/14/2022 R esults for 5:26 PM CDT this procedure are in the results section. CBC WITH AUTO DIFFERENTIAL Today 04/14/2022 R esults for 5:26 PM CDT this procedure are in the results section. SCAN-CT INTERPRETATION 04/13/2022 12:00 AM CDT INR,POCT Routine 04/08/2022 Paroxysmal atrial Results fo r 8:33 AM CDT fibrillation (HC ) this procedure Anticoagulation are in the monitoring, INR results range 2-3 section. INR,POCT Routine 03/25/2022 Paroxysmal atrial Results fo r 7:37 AM CDT fibrillation (HC ) this procedure Anticoagulation are in the monitoring, INR results range 2-3 section. INR,POCT Routine 02/25/2022 Paroxysmal atrial Results fo r 8:10 AM CDT fibrillation (HC ) this procedure Anticoagulation are in the monitoring, INR results range 2-3 section. from Last 3 Months Results (ABNORMAL) INR,POCT (05/06/2022 1:54 PM CDT)Only the most recent of4 results within the time period is included. P athologist Signature INR 2.1 (H) <1.3 05/06/2022 [facility] 1:59 PM CDT [facility] Specimen Anatomical Collection Method Collection Time Receive d Time (Source) Location / / Volume Laterality Blood BLOOD SPECIMEN / 05/06/2022 1:54 PM 05/06 1:59 Unknown CDT PM CDT Narrative [facility] - 2021 1:59 PM CDT ?Therapeutic Range 2.0-3.0 for most anticoagulated patients 2.5-3.5 or 4.0 for high risk patients Kush Doran MD LABORATORY Performing Organization Address City/State/ZIP Code Phon e Number [facility] [address] [place] [address] (ABNORMAL) CBC WITH AUTO DIFFERENTIAL (04/21/2022 10:50 AM CDT)Only the most recent of3 resultswithin the time period is included. [facility] Method Time Signature WHITE BLOOD 5.7 4.5 - 04/21/2022 [facility] COUNT 11.0 10:58 AM CDT [facility] mm RED BLOOD COUNT 2.53 (L) 4.30 - 04/21/2022 [facility] 5.90 10:58 AM CDT [facility]/ mm CLINIC HEMOGLOBIN 8.5 (L) 13.5 - 04/21/2022 [facility] 17.5 g/dL 10:58 AM T [facility] HEMATOCRIT 25.7 (L) 37.0 - 04/21/2022 [facility] 53.0 % 10:58 AM T [facility] MCV 102 (H) 80 - 100 04/21/2022 [facility] fL 10:58 AM T [facility] MCH 33.6 26.0 - 04/21/2022 [facility] 34.0 pg 10:58 AM [facility] MCHC 33.1 32.0 - 04/21/2022 [facility] 36.0 g/dL 10:58 AM T [facility] RDW 13.0 11.5 - 04/21/2022 [facility] 15.5 % 10:58 AM T [facility] PLATELET COUNT 178 140 - 440 04/21/2022 [facility] 10:58 AM CDT [facility] MPV 8.3 6.5 - 04/21/2022 [facility] 11.0 fL 10:58 AM T [facility] NEUTROPHILS 70.9 % 04/21/2022 [facility] 10:58 AM CDT [facility] LYMPHOCYTES 11.6 % 04/21/2022 [facility] 10:58 AM CDT [facility] MONOCYTES 10.4 % 04/21/2022 [facility] 10:58 AM CDT [facility] EOSINOPHILS 6.7 % 04/21/2022 [facility] 10:58 AM CDT [facility] BASOPHILS 0.4 % 04/21/2022 [facility] 10:58 AM CDT [facility] ABSOLUTE 4.0 1.7 - 7.0 04/21/2022 [facility] NEUTROPHILS thou/cu 10:58 AM CDT [facility] ABSOLUTE 0.7 (L) 0.9 - 2.9 04/21/2022 [facility] LYMPHOCYTES thou/cu 10:58 AM CDT [facility] ABSOLUTE 0.6 <0.9 04/21/2022 [facility] MONOCYTES thou/cu 10:58 AM CDT [facility] ABSOLUTE 0.4 <0.5 04/21/2022 [facility] EOSINOPHILS thou/cu 10:58 AM CDT [facility] ABSOLUTE 0.0 <0.3 04/21/2022 [facility] BASOPHILS thou/cu 10:58 AM CDT [facility] Specimen Anatomical Collection Method / Collection Time Recei thony Time (Source) Location / Volume Laterality Blood BLOOD SPECIMEN / Venipuncture / 04/21/2022 10:50 04/21 Unknown Unknown AM CDT 10:50 AM CDT Dieudonne Son MD HEMATOLOGY Performing Organization Address City/State/ZIP Code Phon e Number [facility] [address] [place] [address] SCAN CORRESP-EKG RESULTS (04/19/2022 6:24 AM CDT) Narrative 04/19/2022 6:24 AM CDT This result has an attachment that is no t available. Ordered by an unspecified provider. Other Clinical Staff OTHER (ABNORMAL) IRON PLUS IRON BINDING CAP (04/16/2022 6:37 AM CDT) P athologist Signature IRON 17 (L) 31 - 144 04/16/2022 [facility] ug/dL 8:12 AM CDT [facility] UIBC 215 04/16/2022 [facility] (UNSATURATED) 8:12 AM CDT [facility] IRON BINDING 232 (L) 245 - 400 04/16/2022 [facility] CAPACITY ug/dL 8:12 AM CDT [facility] IRON,% 7 (L) 20 - 55 % 04/16/2022 [facility] SATURATION 8:12 AM CDT [facility] Specimen Anatomical Collection Method / Collection Time Recei thony Time (Source) Location / Volume Laterality Blood BLOOD SPECIMEN / Venipuncture / 04/16/2022 6:37 2021 7:12 Unknown Unknown AM CDT AM CDT Spencer Tabares MD CHEMISTRY Performing Organization Address City/[facility] Phon e Number [place] [id number] [place] [address] CENTER (ABNORMAL) HEMOGLOBIN (04/16/2022 6:37 AM CDT)Only the most recent of3 results within the time period is included. athologist Signature HEMOGLOBIN 7.4 (L) 13.5 - 17.5 04/16/2022 [facility] g/dL 7:33 AM CDT [facility] MCV 102 (H) 80 - 100 fL 04/16/2022 [facility] 7:33 AM CDT [facility] Specimen Anatomical Collection Method / Collection Time Recei thony Time (Source) Location / Volume Laterality Blood BLOOD SPECIMEN / Venipuncture / 04/16/2022 6:37 2021 7:12 Unknown Unknown AM CDT AM CDT Spencer Tabares MD HEMATOLOGY Performing Organization Address [facility] Phon e Number [place] [id number] [place] [address] CENTER VITAMIN B12 (04/16/2022 6:37 AM CDT) athologist Signature VITAMIN B12 333 180 - 914 04/18/2022 [facility] pg/mL 8:30 AM CDT LABORATORY-[facility] LABORATORY Specimen Anatomical Collection Method / Collection Time Recei thony Time (Source) Location / Volume Laterality Blood BLOOD SPECIMEN / Venipuncture / 04/16/2022 6:37 2021 7:12 Unknown Unknown AM CDT AM CDT Spencer Tabares MD CHEMISTRY Performing Organization Address City/[facility]/ZIP [facility] Phon e Number [facility] [address] [place] [address] LABORATORY-CENTRAL [address] LABORATORY (ABNORMAL) BASIC METABOLIC PANEL (04/16/2022 6:37 AM CDT)Only the most recent of 2 resultswithin the time period is included. Analysis Performed At Patho logist Time Signature SODIUM 145 135 - 145 04/16/2022 [facility] [place] mmol/L 7:40 AM [facility] POTASSIUM 3.4 (L) 3.5 - 5.0 04/16/2022 [facility] [place] mmol/L 7:40 AM [facility] CHLORIDE 108 98 - 110 04/16/2022 [facility] [place] mmol/L 7:40 AM [facility] CO2,TOTAL 29 21 - 31 04/16/2022 [facility] [place] mmol/L 7:40 AM [facility] ANION GAP 8 5 - 18 04/16/2022 [facility] 7:40 AM [facility] GLUCOSE 106 (H) 65 - 100 04/16/2022 [facility] mg/dL 7:40 AM [facility] CALCIUM 8.5 8.5 - 10.5 04/16/2022 [facility] mg/dL 7:40 AM [facility] BUN 83 (H) 8 - 25 04/16/2022 [facility] mg/dL 7:40 AM [facility] CREATININE 3.77 (H) 0.72 - 04/16/2022 [facility] 1.25 mg/dL 7:40 AM [facility] BUN/CREAT RATIO 22 (H) 10 - 20 04/16/2022 [facility] 7:40 AM [facility] eGFR 15 (L) >90 04/16/2022 [facility] mL/min/1.7 7:40 AM [place] [address] CENTER Comment: As of 2021, eGFR is [...] Organization Address City/State/ZIP Code Phon e Number [address] [address] CENTER SCAN CORRESP-IMAGING (04/16/2022 12:00 AM CDT) Narrative 04/16/2022 12:00 AM CDT This result has an attachment that is no t available. Ordered by an unspecified provider. Other Clinical Staff OTHER ENDOSCOPY (04/15/2022 4:25 PM CDT) Specimen (Source) [...] seconds Tai Ozuna MD PROCEDURE ORD (ABNORMAL) PROTIME-INR (04/15/2022 5:18 AM CDT) P athologist Signature INR 1.5 (H) <1.3 04/15/2022 [facility] 5:50 AM T [facility] PROTIME 17.5 (H) 12.0 - 13.8 04/15/2022 [facility] sec 5:50 AM T [facility] Specimen Anatomical Collection Method / Collection Time Recei thony Time (Source) Location / Volume Laterality Blood BLOOD SPECIMEN / Venipuncture / 04/15/2022 5:18 2021 5:31 Unknown Unknown AM CDT AM CDT Narrative [facility] - 022 5:50 AM CDT ?Therapeutic Range 2.0-3.0 for most anticoagulated patients 2.5-3.5 or 4.0 for high risk patients The INR is only used for patients on sta ble oral anticoagulant therapy. It makes no significant contribution to the diagnosis or treatment of patients whose Protime is prolonged f or other reasons. Nahomy Briecno NP HEMATOLOGY Performing Organization Address [facility] Phon e Number [address] [address] [place] FERRITIN (04/15/2022 5:18 AM CDT) athologist Signature FERRITIN 44.8 22.0 - 04/15/2022 [facility] 275.0 ng/mL 7:30 PM CDT [facility] Specimen Anatomical Collection Method / Collection Time Recei thony Time (Source) Location / Volume Laterality Blood BLOOD SPECIMEN / Venipuncture / 04/15/2022 5:18 2021 5:31 Unknown Unknown AM CDT AM CDT Spencer Tabares MD CHEMISTRY Performing Organization Address City/[facility] Phon e Number [address] [address] [place] SCAN-CT INTERPRETATION (04/13/2022 12:00 AM CDT) Narrative This result has an attachment that is no t available. Scanner OTHER from Last 3 Months Insurance Payer Benefit Plan / Subscriber ID Effective Phone Address T ype Group Dates MEDICARE PART A - HB MEDICARE PART [id number] 2006-Prese ATTN: CLAIMS USE ONLY A HB ONLY nt [address] [place] [address] [facility] MR CONTR[place] MR [id number] 2022-Prese [address] [address] [place] [address] FOR [id number] 2014-Prese [address] [place] [address] [facility] CCN [id number] 2022-Pres [place] CC[place] [employer] ent [address] [place] [address] Advance Directives Documents on File Type Date 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
--- OUTSIDE RECORDS SUMMARY | 2022-05-13 07:43 | XMS_ITS | Continuity of Care Document ---
:1940 Author Organization [facility] Care Team Providers Name Role Phone DOD-MS Unavailable Unavailable Problems Combined list of problems from Department of Defense and Veterans Affairs facilities. It does not include entries that were removed or entered in error. 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 2) Encounters from the Department of Defense facilities going back up to 280 months. Location Location Encounter Encounter Reason Attending ADM DC Stat us Disposition Source Details Type Number For Provider Date Date Visit Outpatient [id number] 05/14 [place] [id number] [id number] [id number] Sandhya CASON 05/31 [place] [facility] [id number] [facility] [id number] Sandhya CASON 12/03 [place] Encounter [id number] ERR [facility] Outpatient [id number] Sandhya CASON 12/10 [place] En[place] [id number] ERRY /2021 [facility] Outpatient [id number] ARNEL REYES 02/10 [place] Encounter [id number] ISTEN L [facility] Outpatient [id number] 02/28 [place] Encounter [id number] [facility] Outpatient [id number] SANDY,SA 04/14 [place] En[place] [id number] RA R [facility] Outpatient [id number] SANDY,SA 04/16 [place] Encounter [id number] RA R [facility] Social History Combined list of available [...] 05/30/2022 AMBULATORY - NONE AMBULATORY - NONE [facility]
--- OUTSIDE RECORDS SUMMARY | 2022-05-13 07:43 | XMS_ITS | Encounter Summary ---
:1940 Author Organization [facility] Address [address] [place] [address] Support Name Relationship Address Phone SHAYY CARMONA Unavailable [address] [place] [address] SHAYY CARMONA Unavailable [address] [place] [address] Insurance Providers: All historical and current Section [...] MEDICARE MEDICARE PART Nov 19, PART A [id number] MATHEWT P ATIENT (WNR) (M) A 2006 97A [phone] [place] MEDICARE MEDICARE PART Nov 19, PART B [id number] MATHEW,T P ATIENT (WNR) (M) B 2006 [id number] [phone] [place] Selected Encounter This section includes the information on record at [place] for the Encounter. Date/Time Encounter Type Encounter Reason Provider Source Description Apr 14, 2022 09:01 Outpatient ADMIN PAT ACTIVLIDIA NEGRETE PM Encounter (MASNONCT) IHE Encounter Template Text not used by MS Plan of Treatment: Future Appointments (+ 6 months) and Future Tests (+/- 45 days) The Plan of Treatment section includes future care activities for the patient from all [place] treatmentfacilities. This section includes future appointments and future orders which are active, pending orscheduled.Future Appointments This section includes appointments that were scheduled to occur 6 months from the date of the Encounter, up to a maximum of 20 appointments. The data comes from all [place] treatment facilities. Appointment Date/Time Appointment Type Appointment Facili ty Name Apr 16, 2022 02:34 PM AMBULATORY - NONE [facility] May 30, 2022 02:00 PM AMBULATORY - NONE [facility] Encounter Notes: All associated encounter notes This section contains the clinical notes associated to the Encounter. Date/Time Encounter Note(s) Provider Source Apr 13, 2022 09:01 PM NONVA NOTE: HEENA CRISOSTOMO MORENITA Guevara [facility] LOCAL TITLE: [facility] SELF PRESENTIN G CARE COORD PLAN STANDARD TITLE: NONVA NOTE DATE OF NOTE: APR 13, 2022@21:01 ENTRY DATE: APR 14, 2022@21:02:06 AUTHOR: HEENA CRISOSTOMO EXP COSIGNER: URGENCY: STATUS: COMPLETED [facility] S[facility]F PRESENTING CARE CO ORD PLAN NOTE Has ADDENDA Emergency Notification Intake Date Presenting to the Facility: Mar Method of Contact: Notified from Contractors [employer] Notification ID: [id number] [facility] Referral #: [facility] Name: Hospital: [place], [place] Address: City: [place] State: [place] Zip Code: Phone : [facility] Facility Point of Contact: Name: Tangela Lara Chief complaint: ACHALASIA Primary Diagnosis: Disposition Discharged Date of discharge: Mar Discharge to home 04/14/2022 8:56:14 PM CDT Brie Romero ADDED ADDRESS, T INFO PER [facility]. , 73 [address], NETWORK DETERMINATION, PRUDENT LAYPERSON, VA AVAILABILITY. POM REVIEW /paola/ HEENA REYES, FINE DINING SERVER Signed: 04/14/2022 21:03 Receipt Acknowledged By: 04/21/2022 11:12 /paola/ LIDIA DELGADO RN REGISTERED NURSE 04/21/2022 ADDENDUM STATUS: COMPLETED was seen in an outside ER on: 04/13/22 No [facility] Diagnosis: Weakness, achalasia of espohagus, vom iting Transferred to [facility] Medical records received and sent to [facility] for im port. Please review records when imported for any need ed follow up. /paola/ LIDIA DELGADO RN REGISTERED NURSE Signed: 04/21/2022 13:36
--- OUTSIDE RECORDS SUMMARY | 2022-05-13 07:44 | XMS_ITS | Clinical Summary ---
:1940 Author Organization [facility] Address [address] [place] [address] Care Team Providers Name Role Phone Unavailable Primary Care Provider Unavailable Source Comments Patient records contain information from all sites at [facility]. For routine questions regarding patient records, call [phone] during business hours, M-F 8:00 AM - 5:00 PM Central Time. Record requests for emergency care only can be directed to [phone] at any time.[facility] Allergies Active Allergy Reactions Severity Noted [...] and dinner. Active Problems Problem Noted Date Residential (Current) Anticoagulant Treatment 12/09/2021 Hypertension And End [...] Intake Communication Scheduling 04/05/2022 Hospital Encounter Cardiovascular Madeleine Herediao n Disease Jessa M, Pericardial Acu steffi Tsang ([facility]) 04/04/2022 Hospital Encounter Cardiovascular Stan Lazcanousio n Pericardial Acute (HCC); Disease Liselle M, Chronic Systoli c (Congestive) Heart Failure ([facility]); EMERGENCY MEDICAL TECHNICIAN, C.N.P. Atrial Fibrilla tion Paroxysmal ([facility]); Bundle Branch B lock Left; Dialysis Perito ibis Status ([facility]) 04/04/2022 Hospital Encounter Laboratory Medicine Neno, Ef fusion Pericardial Acute ([facility]); Liselle M, Chronic Systoli c (Congestive) Heart Failure (HCC); EMERGENCY MEDICAL TECHNICIAN, C.N.P. Atrial Fibrilla tion Paroxysmal (HCC); Bundle Branch B lock Left; Dialysis Perito ibis Status ([facility]) 03/03/2022 Clinical Pulmonary Medicine Yan, Release o f Communication Jessa eMndes, Information M.Candida 03/02/2022 Hospital Encounter Pulmonary Medicine Stan Heredia usion Pleural Jessa Mendes, (Primary Dx) M.Candida 03/02/2022 Hospital Encounter Radiology LiorPeng becerril, Pneumoni tis Due To M.D. Inhalation Of F ood And Vomit ([facility]) 03/02/2022 Clinical Cardiovascular Destination Specialist, Triage Communication Alysa Alcaraz M.D. 03/02/2022 Orders Only Pulmonary Medicine Yan Effusion Jessa Mendes, Pericardial Acu steffi Tsang ([facility]) (Primary Dx) from Last 3 Months Immunizations Name Administration [...] How often do you attend protestant or buddhism More than 4 time s per year [...] Maintenance Due Date Last Done Comments COVID-19 Vaccine (4 - Booster for 07/13/2021 05/18/2021, , Pfizer series) 09/23/2020 Depression Screening (Annual 08/21/2021 PHQ-2) Influenza Vaccine (#1) 2022 05/18/2021, 05/06/2020, 05/06/2020, [...] Completed 12/10/2021 Medical Devices Implanted Type Area Drip Box Tender Device Shelf Model / Identifier Expiration Date Ser ial / Lot Osteomed-Screw Auto-Drive 1.6 X 4 - [id number] Hardware e.g. Vimagino Implanted: Qty: 16 on 06/19/2002 pins/screws/r ods Description: Device Drip Box Tender - [place] acquired by [employer]. Device Status Text - [id number]. Procedures Procedure Name Priority Date/Time Associated Comments Diagnosis OUTSIDE CT BODY Routine 04/13/2022 Results for 10:35 PM CDT this procedure are in the results section. (TTE) 2D ECHO Routine 04/05/2022 3:55 Effusion Results for DOPPLER COLOR PM CDT Pericardial Acute this proc edure ([facility]) are in the results section. ECG Routine 04/05/2022 2:01 Effusion Results for PM CDT Pericardial Acute this proce dure ([facility]) are in the results section. HOLTER MONITOR - IN Routine 04/05/2022 6:00 Effusion Resul ts for CLINIC FIREPROOF DOOR MAKER AM CDT Pericardial Acute this pro cedure (HCC) are in the Chronic Systolic results (Congestive) Heart section. Failure (HCC) Atrial Fibrillation Paroxysmal (HCC) Bundle Branch Block Left Dialysis Peritoneal Status ([facility]) SEDIMENTATION RATE, Routine 04/04/2022 Effusion Results [...] ECHO DOPPLER COLOR (04/05/2022 3:55 PM CDT) [facility] Method Time Signature Ejection Fraction 66 MC [...] was performed but not reported based on stator winder's judgment. No regional wall motion abnormalities. Abnormal [...] Signature Ventricular Rate 62 BPM MUSE ECG/Min SD Interval 206 ms MUSE QRSD Interval 128 ms MUSE QT Interval 446 ms MUSE QTC Interval 452 ms MUSE P [place] 10 degrees MUSE R [place] 6 degrees MUSE T Wave [place] 26 degrees MUSE Specimen Anatomical Collection Method [...] MUSE NA HOLTER MONITOR - IN CLINIC FIREPROOF DOOR MAKER (04/05/2022 6:00 AM CDT) P athologist Signature [...] Duration 6h 30m duration INFOBIONIC MOME AF [place] 29 percent INFOBIONIC MOME Longest AF 7h [...] seen singly at and around these times. Tieing Machine Operator: Marilou Zimmer / Violet Cotton [...] seen singly at and around these times. Tieing Machine Operator: Marilou Zimmer / Violet Cotton Fellow: Clemente Dos Santos MD Mehrdad Lazcano APRN, C.N.P. CV CARDIAC SERVICES PRO CEDURES Performing Organization Address City/[facility]/ZIP Code Phon e Number INFOBIONIC MOME INFOBIONIC MOME NA (ABNORMAL) Sedimentation Rate (04/04/2022 11:36 AM CDT) [facility] Method Time Signature Sedimentation 61 (H) 3 - 28 04/04/2022 DTL Rate, B mm/h 12:50 PM CDT Specimen Anatomical Collection Method Collection Time Receive d Time (Source) Location / / Volume Laterality Blood (Blood, 04/04/2022 11:36 04/04/2022 Venous) AM CDT 11:56 AM CDT Mehrdad Lazcano APRN, C.N.P. LAB BLOOD ADD-ON Performing Organization Address City/State/ZIP Code Phon e Number [facility] - [address] [place], [place] [address] [place] [address] [facility] [address] (ABNORMAL) CBC with Differential, Blood (04/04/2022 11:36 AM CDT) [facility] Method Time Signature Hemoglobin 11.7 (L) 13.2 [...] Organization Address City/State/ZIP Code Phon e Number [facility] - [facility] [address] [place], [place] [address] [place] [address] [facility] [address] (ABNORMAL) NT-Pro B-Type Natriuretic [...] C.N.P. LAB BLOOD ADD-ON Performing Organization Address [facility] Phon e Number [address] (ABNORMAL) CRP (C-Reactive Protein) (04/04/2022 11:35 AM CDT) P athologist Signature C-Reactive 16.2 (H) <=8.0 mg/L 04/04/2022 DTL Protein (CRP), 1:55 PM CDT S Specimen Anatomical Collection Method Collection Time Receive d Time (Source) Location / / Volume Laterality Blood (Blood, 04/04/2022 11:35 04/04/2022 Venous) AM CDT 12:06 PM CDT Mehrdad Lazcano APRN, C.N.P. LAB BLOOD ADD-ON Performing Organization Address City/[facility] [place] [address] (ABNORMAL) Comprehensive Metabolic Panel (04/04/2022 11:35 [...] 04/04/2022 DTL Black/ mL/min/BSA 1:48 PM CDT Romanian Comment: ----ADDITIONAL INFORMATION---- Estimated GFR calculated using [...] Organization Address City/State/ZIP Code Phon e Number [facility] - [address] [place], [place] [address] [place] [address] [facility] [address] Chest without IV [...] Phone Address Typ e / Group Dates [facility] MEDICARE [id number] 2018-Pres [phone] PPO COMPLETE ent [phone] [place] [address] FOR LIFE FOR [id number] 2018-Pre [phone] [address] Indemnity LIFE sent [phone] [place] [address] Advance Directives For more information, please contact: [phone] Latest Code Status on File Code Status Date Activated Date Inactivated Comments Full Code 12/09/2021 5:10 PM 12/11/2021 2:46 PM Full Code: Discussed Full Code 2021 1:00 AM 12/08/2021 4:13 PM Full Code: Discussed
--- OUTSIDE RECORDS SUMMARY | 2022-05-13 07:44 | XMS_ITS ---
:1940 Author Organization [facility] Address [address] [place] [address] Care Team Providers Name Role Phone Unavailable Primary Care Provider Unavailable Procedures Procedure Name Priority Date/Time Associated Comments Diagnosis OUTSIDE CT BODY Routine 04/13/2022 Results for 10:35 PM CDT this procedure are in the results section. (TTE) 2D ECHO Routine 04/05/2022 3:55 Effusion Results for DOPPLER COLOR PM CDT Pericardial Acute this proc edure ([facility]) are in the results section. ECG Routine 04/05/2022 2:01 Effusion Results for PM CDT Pericardial Acute this proce dure ([facility]) are in the results section. HOLTER MONITOR - IN Routine 04/05/2022 6:00 Effusion Resul ts for CLINIC SIDE PANEL PADDER AM CDT Pericardial Acute this pro cedure ([facility]) are in the Chronic Systolic results (Congestive) Heart section. Failure (HCC) Atrial Fibrillation Paroxysmal ([facility]) Bundle Branch Block Left Dialysis Peritoneal Status ([facility]) SEDIMENTATION RATE, Routine 04/04/2022 Effusion Results for B 11:36 AM CDT Pericardial Acute this proce dure ([facility]) are in the Chronic Systolic results (Congestive) Heart section. Failure (HCC) Atrial Fibrillation Paroxysmal ([facility]) Bundle Branch Block Left Dialysis Peritoneal Status ([facility]) CBC WITH Routine 04/04/2022 Effusion Results for DIFFERENTIAL, B 11:36 AM CDT Pericardial Acute this pr ocedure ([facility]) are in the Chronic Systolic results (Congestive) Heart section. Failure (HCC) Atrial Fibrillation Paroxysmal (HCC) Bundle Branch Block Left Dialysis Peritoneal Status ([facility]) C-REACTIVE PROTEIN Routine 04/04/2022 Effusion Results f or (CRP), S/P 11:35 AM CDT Pericardial Acute this proce dure ([facility]) are in the Chronic Systolic results [...] and dinner. Active Problems Problem Noted Date Longterm (Current) Anticoagulant Treatment 12/09/2021 Hypertension And End [...] How often do you attend religious or druze More than 4 time s per year [...] ECHO DOPPLER COLOR (04/05/2022 3:55 PM CDT) [facility] Method Time Signature Ejection Fraction 66 [...] was performed but not reported based on automotive parts interpreter's judgment. No regional wall motion abnormalities. [...] Signature Ventricular Rate 62 BPM MUSE ECG/Min DC Interval 206 ms MUSE QRSD Interval 128 ms MUSE QT Interval 446 ms MUSE QTC Interval 452 ms MUSE P [place] 10 degrees MUSE R [place] 6 degrees MUSE T Wave [place] 26 degrees MUSE Specimen Anatomical Collection Method [...] MUSE NA HOLTER MONITOR - IN CLINIC SIDE PANEL PADDER (04/05/2022 6:00 AM CDT) P athologist Signature [...] Duration 6h 30m duration INFOBIONIC MOME AF [place] 29 percent INFOBIONIC MOME Longest AF 7h [...] seen singly at and around these times. Title Attorney: Marilou Zimmer / Violet Cotton Fellow: Clemente [...] seen singly at and around these times. Title Attorney: Marilou Zimmer / Violet Cotton Fellow: Clemente Dos Santos MD Mehrdad Lazcano APRN, C.N.P. CV CARDIAC SERVICES PRO CEDURES Performing Organization Address City/State/ZIP Code Phon e Number INFOBIONIC MOME INFOBIONIC MOME NA (ABNORMAL) Sedimentation Rate (04/04/2022 11:36 AM CDT) [employer] Method Time Signature Sedimentation 61 (H) 3 - 28 04/04/2022 DTL Rate, B mm/h 12:50 PM CDT Specimen Anatomical Collection Method Collection Time Receive d Time (Source) Location / / Volume Laterality Blood (Blood, 04/04/2022 11:36 04/04/2022 Venous) AM CDT 11:56 AM CDT Mehrdad Lazcano APRN, C.N.P. LAB BLOOD ADD-ON Performing Organization Address City/State/ZIP Code Phon e Number [facility] - [address] [place], [place] [address] [facility] [place] [address] Laboratories-[facility] [address] (ABNORMAL) CBC with Differential, Blood (04/04/2022 11:36 AM CDT) [employer] Method Time Signature Hemoglobin 11.7 (L) 13.2 [...] Organization Address City/State/ZIP Code Phon e Number [facility] - [address] [place], [place] [address] [facility] [place] [address] Laboratories[facility] [address] (ABNORMAL) NT-Pro B-Type Natriuretic Peptide (BNP) (04/04/2022 11:35 AM CDT) athologist [facility] NT-Pro BNP 2314 (H) <=540 pg/mL 04/04/2022 [...] C.N.P. LAB BLOOD ADD-ON Performing Organization Address City/[facility] Phon e Number [facility] - [address] (ABNORMAL) CRP (C-Reactive Protein) (04/04/2022 11:35 AM CDT) athologist [facility] C-Reactive 16.2 (H) <=8.0 mg/L 04/04/2022 DT Protein (CRP), 1:55 PM CDT S Specimen Anatomical Collection Method Collection Time Receive d Time (Source) Location / / Volume Laterality Blood (Blood, 04/04/2022 11:35 04/04/2022 Venous) AM CDT 12:06 PM CDT Mehrdad Lazcano APRN, C.N.P. LAB BLOOD ADD-ON Performing Organization Address City/[facility] Phon e Number [facility] - [address] (ABNORMAL) Comprehensive Metabolic Panel (04/04/2022 11:35 [...] 04/04/2022 DTL Black/ mL/min/BSA 1:48 PM CDT Maltese Comment: ----ADDITIONAL INFORMATION---- Estimated GFR calculated using [...] Organization Address City/State/ZIP Code Phon e Number [facility] - [address] [place], [place] [address] [facility] [place] [address] Laboratories[facility] [address] [...]
--- OUTSIDE RECORDS SUMMARY | 2022-05-13 07:44 | XMS_ITS | Encounter Summary ---
:1940 Author Organization [facility] Address [address] [place] [address] Care Team Providers Name Role Phone Unavailable Primary Care Provider Unavailable Reason for Referral Outpatient (Routine) - Authorized Specialty Diagnoses / Referred By Contact Referred To Contact Procedures Cardiovascular Diseases / Diagnoses Stenosis Aortic Valve Acquired Arun Boone [facility] Cardiovascular Disease Trinh CASANOVA [address] [place] [address] Referral ID Status Reason Start Date Expiration Date Visits V isits Requested Authorized [id number] Authorized 04/15/2022 04/15/2023 1 1 Specialty Diagnoses / Procedures Referred By Contact Refer red To Contact Alyssa Richards M. D. [facility] [address] [place], [place] [phone] Referral ID Status Reason Start Date Expiration Date Visits Requ ested Visits Authorized Outpatient (Routine) - Authorized Specialty Diagnoses / Procedures Referred By Contact Refer red To Contact Diagnoses Stenosis Aortic Valve Acquired Arun Boone III, M.D. [facility] Procedures ECG 12 Lead [address] [place] [phone] Referral ID Status Reason Start Date Expiration Date Visits V isits Requested Authorized [id number] Authorized 04/15/2022 04/15/2023 1 1 Outpatient (Routine) - Authorized Specialty Diagnoses / Procedures Referred By Contact Refer red To Contact Diagnoses Stenosis Aortic Valve Acquired Arun Boone III [facility] Procedures Echo Transthoracic (TTE) - Complex Valvular Heart Disease Trinh 200 [place], [place] [phone] Referral ID Status Reason Start Date Expiration Date Visits V isits Requested Authorized [id number] Authorized 04/15/2022 04/15/2023 1 1 Outpatient (Routine) - Authorized Specialty Diagnoses / Procedures Referred By Contact Refer red To Contact Diagnoses Stenosis Aortic Valve Acquired Arun Boone III, M.D. [facility] Procedures DX Chest AP or PA and Lateral 2 Views [address] [place] [phone] Referral ID Status Reason Start Date Expiration Date Visits V isits Requested Authorized [id number] Authorized 04/15/2022 04/15/2023 1 1 Reason for Visit Outpatient (Routine) - Closed Specialty Diagnoses / Procedures Referred By Contact Refer red To Contact Cardiovascular Diseases / Diagnoses Effusion Pericardial Acute (HCC) Jessa Heredia [facility] Cardiovascular Disease Trinh [address] [place] [address] Referral ID Status Reason Start Date Expiration Date Visits Requ ested Visits Authorized [id number] Closed 03/02/2022 03/02/2023 1 1 Encounter Details Date Type Department Care Team Description 04/15/2022 Virtual Visit Department of Jessa Heredia M.D. [address] [place] [phone] Stenosis Aortic Valve Acquired (Primary Dx); Cardiovascular Medicine Alyssa Richards M.D. [address] [place] [address] Effusion Pericardial Acute (HCC) in [facility] rotary filter operator 200 [place] [address] Social History Tobacco Use Types Packs/Day Years [...] How often do you attend restorationist or yazidi More than 4 time s per year [...] audio/visual technology by Alyssa Richards M.D. in [facility] to the patient in patient's home. Subjective #1 Effusion Pericardial Acute (HCC) Psychosocial: Patient is calling from [facility] Pertinent past medical history: Atrial [...] TTE was ordered and follow-up with the x ray electronics wireman as well requested. His most recent TTE demonstrated interval improvement with small circumferential pleural effusion noted. He also had a repeat ECG that was done which came back similar to previous ECG with first-degree AV block and left bundle-branch block noted. No diffuse ST segment elevation,CA depression, downsloping TP segment, or electrical alternans [...] person today, but is currently hospitalized in [place] due to some issues with nausea and [...]
--- OUTSIDE RECORDS SUMMARY | 2022-05-13 07:44 | XMS_ITS | Encounter Summary ---
:1940 Author Organization [facility] Address [address] [place] [address] Support Name Relationship Address Phone SHAYY CARMONA Unavailable [address] [place] [address] SHAYY CARMONA Unavailable [address] [place] [address] Insurance Providers: All historical and current Section Date Range: From patient's date of to the date document was created.This section includes the names of all active insurance providers for the patient. Insurance Type of Plan Start of End of Group Member Insurance Policy P atient's Provider Coverage Name Policy Policy Number ID Provider's Kngiht's Relationship Coverage Coverage Telephone Name to Policy Number [employer] MEDICARE MEDICARE PART Nov 19, PART A [id number] MATHEWT P ATIENT (WNR) (M) A 2006 [id number] [phone] [place] MEDICARE PART Nov 19, PART B [id number] MATHEW,T P ATIENT (WNR) (M) B [id number] [phone] [place] Selected Encounter This section includes the information on record at [place] for the Encounter. Date/Time Encounter Type Encounter Reason Provider Source Description Apr 16, 2022 02:34 Outpatient ADMIN PAT ACTIVTIES LIDIA DELGADO PM Encounter (MASNONCT) IHE Encounter Template Text not used by [place] Plan of Treatment: Future Appointments (+ 6 months) and Future Tests (+/- 45 days) The Plan of Treatment section includes future care activities for the patient from all [place] treatmentfacilities. This section includes future appointments and future orders which are active, pending orscheduled.Future Appointments This section includes appointments that were scheduled to occur 6 months from the date of the Encounter, up to a maximum of 20 appointments. The data comes from all [place] treatment facilities. Appointment Date/Time Appointment Type Appointment Facili ty Name May 30, 2022 02:00 PM AMBULATORY - NONE [facility] Encounter Notes: All associated encounter notes This section contains the clinical notes associated to the Encounter. Date/Time Encounter Note(s) Provider Source Apr 14, 2022 02:34 NONVA NOTE: CLAUDIA NIÑO [facility] PM LOCAL TITLE: COMMUNITY CARE-GRIS SELF PRESENTIN G CARE COORD PLAN N STANDARD TITLE: NONVA NOTE DATE OF NOTE: APR 14, 2022@14:34 ENTRY DATE: APR 16, 2022@14:34:39 AUTHOR: CLAUDIA NIÑO EXP COSIGNER: URGENCY: STATUS: COMPLETED COMMUNITY CARE-GRIS SELF PRESENTING CARE CO ORD PLAN NOTE Has ADDENDA Emergency Notification Intake Date Presenting to the Facility: Mar Method of Contact: Notified from [employer] Notification ID: [id number] [facility] Referral #: [facility] Name: Hospital: [facility] Address: City: [place] State: [place] Zip Code: Phone : [facility] Point of Contact: Name: [facility] Chief complaint: VOMITING AND DIZZINESS Primary Diagnosis: Disposition Unknown at time of intake note entry 04/16/2022 2:09:42 PM CDT Brandy Cobb CORECTION USED ES JLV IS DOWN 04/16/2022 2:08:49 PM CDT Brandy Cobb APPROVED 1703 CHECK FOR DUPL ICATES NONE FOUND. CHECK FOR OHI,24 MONTH. USED JLV TO VERIFY ALL INFORMATION. SENT EMAIL /paola/ CLAUDIA NIÑO SPIN INSTRUCTOR Signed: 04/16/2022 14:35 Receipt Acknowledged By: 04/21/2022 11:12 /paola/ LIDIA DELGADO RN REGISTERED NURSE 04/21/2022 ADDENDUM STATUS: COMPLETED Hospital Discharge note Hospital: [facility] Admit date: 04/14/22 Discharge date: 04/16/22 Discharge diagnosis: Esophageal Ulcers Disposition: home Recommendations for Outpatient Provider * PCP: Trang Doran MD Recommendations for outpatient provider Specific recommendations to be addressed at the follow up visit: Follow up regarding anemia, continued dysphagia symptoms. Medication regimen changes: see Hospital Course above. Follow-up labs/imaging: none Other specialty follow-up not included in DC ord ers: Needs to follow up with gastroenterology Information obtained from [place] dical records received and sent to [facility] for import. Outreach packet to be sent t o as they currently do not have a PACT team assigned. /paola/ LIDIA DELGADO RN REGISTERED NURSE Signed: 04/21/2022 11:19
--- OUTSIDE RECORDS SUMMARY | 2022-05-13 07:44 | XMS_ITS | Encounter Summary ---
:1940 Author Organization [facility] Address [address] [place] [address] Care Team Providers Name Role Phone Unavailable Primary Care Provider Unavailable Reason for Visit Reason Comments Pre-visit Intake Encounter Details Date Type Department Care Team Description 04/12/2022 Clinical Communication Visit Review in Pr e-visit Intake [place], [place] [address] [place] [address] Social History Tobacco Use Types [...] How often do you attend orthodox or adventist More than 4 time s [...]
--- OUTSIDE RECORDS SUMMARY | 2022-05-13 07:44 | XMS_ITS ---
:[address] [facility] DOCUMENT DISCLAIMER The information in the [facility] Continuity of Care Document represents a summary of certain health and medical information. It may not contain the complete medical history for the patient and should be independently verified. The represented time in the document is Eastern Time. 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 in chronic kidney disease D63.1 Active [...] of Home environment No Information Available MEDICATIONS Prescribed Medications for Dialysis Treatments Medication Instructions Dosage Route Start Date End Date Statu s Mircera Every 4 weeks 100 mcg Subcutaneous April Home Medications Medication Instructions Dosage Route Start Date End Date Statu s allopurinol Take by mouth 1 tablet ORAL August A ctive 100 mg once a day 2021 amoxicillin Take by mouth 4 capsule ORAL August Active 500 mg once a day as 2021 directed amoxicillin-p Take by mouth 1 tablet ORAL December 13, Active ot clavulanate once a day 2021 500-125 mg calcitriol Take by mouth 1 capsule ORAL August A ctive 0.25 mcg three times a 2021 week Dialyvite by mouth once 1 tablet ORAL December 13, Ac tive 100-1 mg a day 2021 docusate Take by mouth 1 tablet ORAL March 23, Ac tive sodium 100 mg twice a day as 2021 needed gentamicin Apply to skin TOPICAL December 13, A ctive 0.1% once a day as 2021 directed metoprolol Take by mouth 1/2 ORAL April ctive tartrate 25 mg twice a day 2021 torsemide 20 Take by mouth 1 tablet ORAL December 22, Active mg once a day 2021 warfarin 2 mg Take by mouth ORAL August Active once a day as 2021 directed Carafate 100 Take by mouth 10 ml ORAL April Discontinued mg/mL four times a 2021 day omeprazole 20 Take by mouth 1 capsule ORAL Septembe r Discontinued mg twice a day 2021 VITAL SIGNS Weight Vital Sign Value Date / Time Estimated Dry Weight 76.5 kg May 04, 2022 11:59 PM Other Other Value Date / Time Height 172 cm September 14, 2021 12: 00 AM [facility] Tuberculosis Testing TST Date Administered TST Date Read TST Result 09/14/2021 09/16/2021 Negative (<5) mm LAB RESULTS Hematology Result Type Result Value Relevant Interpretation Date Reference Range UIBC (Calc) 235 mcg/dL 155-355 mcg/dL - April 22, 2022 Iron 19 mcg/dL Females: 30-160 Low April 22 , mcg/dL Males: 2021 45-160 mcg/dL RDW 14.8 % No Reference High April 22, range provided 2021 Transferrin Sat. 7 % 20-55% Low April, (Calc) 2021 TIBC 254 mcg/dL 185-515 mcg/dL - April 22, 2022 Monocytes 7.3 % 3.0-10.0% - April 22, 2022 Eosinophil 5.4 % 0.0-7.0% - April 22, 2022 Neutrophils 75.9 % 40.0-75.0% High April 22, 2022 Lymphocytes 8.8 % 19.0-48.0% Low April 22, 2022 Basophils 1.1 % 0.0-1.5% - April 22, 2022 JUAN ANTONIO 1.5 % 0.0-4.0% - April 22, 2022 WBC (No Diff) 4.92 1000/mcL 4.8-10.8 - April 22, thous/mcL 2021 Hemoglobin x 3 25.2 % Male: 14.0 - 18.0 Low Septembe r , g/dL; Female: 2021 12.0-16.0 g/dL HCT 28.0 % Males: 42 - 52% Low April 22 , Females: 37 - 47% 2021 RBC 2.68 mill/mcL Males: 4.70 - Low April 22, 6.10 mill/mcL 2021 Females: 4.20 - 5.40 mill/mcL HGB 8.4 g/dL Males: 14.0 - Low April 22, 18.0 g/dL 2021 Females: 12.0 - 16.0 g/dL MCHC 30.0 g/dL 30 - 36 g/dL - April 22, 2022 MCH 31.4 pg 27 - 31 pg/cell High April Hemoglobin x 3 31.8 % Male: 14.0 - 18.0 Low Septembe r , g/dL; Female: 2021 12.0-16.0 g/dL HGB 10.6 g/dL Males: 14.0 - Low May 11, 18.0 g/dL 2021 Females: 12.0 - 16.0 g/dL Metabolic/Renal Result Type Result Value Relevant Reference Interpretation Date Range BUN 39 mg/dL 6-19 mg/dl High April 22, 2022 Urea Nitrogen, 457 mg/dL 12-20 g/24 hrs - April 2, Urine, Timed 2021 nPCR 1.02 g/kg/day No reference range - [facility] provided 2021 Creatinine, Serum 3.45 mg/dL 0.6-1.3 mg/dL High April 22, 2022 Sodium 139 mEq/L 136-145 mEq/L - April 22, 2022 BUN/Creat Ratio 11.3 -20 - April Creatinine 20.4 mL/min Creatinine Low April 22, Clearance, Urine Clearance, 2021 Normalized Male 94.0-122.0 mL/min Female 77.0-94.0 mL/min Bicarbonate 30 mEq/L 22-29 mEq/L - April 22, 2022 Chloride 105 mEq/L 96-108 mEq/L - April 22, 2022 Potassium 4.6 mEq/L 3.5-5.1 mEq/L - April 22, 2022 Bone/Mineral Result Type Result Value Relevant Reference Interpretation Date Range Corrected Ca x P 22 < 55 - April Product Ca x P Product 20 < 55 - April 22, 2022 Phosphorus 2.4 mg/dL 2.6-4.5 mg/dL Low April 22, 2022 Calcium, Total 8.3 mg/dL 8.4-10.2 mg/dL Low April Liver/Nutrition Result Type Result Value Relevant Reference Interpretation Date Range Albumin (BCG) 3.0 g/dL 3.5-5.2 g/dL Low April 22, 2022 Trace Elements Result Type Result Value Relevant Reference Interpretation Date Range Aluminum 12 mcg/L 0-10 mcg/L High April 22 Aluminum 18 mcg/L 0-10 mcg/L High May 04 Peritoneal Dialysis Testing Result Type Result Value Relevant Interpretation Date Reference Range Creatinine, PDF 1.8 mg/dL No Reference - April 22 , Timed Cor range provided 2021 Glucose, PDF Timed 654 mg/dL No Reference - April 22, range provided 2021 Creatinine, PD 1.9 mg/dL No Reference - April 22, Fluid, 24 Hr range provided 2021 Uncorrected Urea Nitrogen, PDF 1933.2 mg/24 hr No Reference - 02, 24 Hr range provided 2021 PD Kt/V 24 Hr 31 mg/dL No Reference - April 22, Dialysate Urea range provided 2021 Creatinine Clearance 250 L/wk No reference - , - Measured PD range provided 2021 Urea Clear, Total 141 L/wk No Reference - April 22, Norm Wkly range provided 2021 Urea Clear, PDF Norm 34 L/wk No Reference - er , Wkly range provided 2021 Urea Clearance, PDF 3.1 mL/min No Reference - , Norm range provided 2021 Creatinine, Urine 85.9 mg/dL No Reference - April 22, range provided 2021 Creat Clear, PDF 23 L/wk No Reference - April 2, Weekly range provided 2021 Total Creatinine, 1.1 g/24 hr No Reference - April 22, Urine range provided 2021 Creatinine Clear, 2.3 mL/min No Reference - April 22, PDF range provided 2021 Creat Clear, Urine 226.8 L/wk No Reference - April 22, Weekly range provided 2021 Creatinine, PDF 24 112.2 mg/24 hr No Reference - , Hr range provided 2021 Total Urea Nitrogen, 5.9 g/24 hr No Reference Low , Urine range provided 2021 Wkly Creat Cl (Resid 226 L/wk No Reference - , + Dial) range provided 2021 Creatinine Clear, 2.0 mL/min No Reference - April 22, PDF Norm range provided 2021 Urea Clearance, PD 3.4 mL/min No Reference - April 22, Fluid range provided 2021 Urea Clearance, 10.6 mL/min No Reference Low April 22 , Urine range provided 2021 PNA 75 g/day No Reference - April 22, range provided 2021 Kt/V, Residual 2.51 No Reference - April 22, range provided 2021 Urea Clear, Urine 9.6 mL/min No Reference Low April 22, Norm range provided 2021 Creat Clear, Urine 206 L/wk No Reference - April 22, Norm Wkly range provided 2021 Urea Clear, Urine 107 L/wk No Reference - April 22, Norm Wkly range provided 2021 Infectious Diseases Result Type Result Value Relevant Reference Interpretation Date Range Hep B Surface Ab > 1000 mIU/mL < 10 mIU/mL, Non- - Janua 2021 (anti-HBs) Immune HCV Ab (anti-HCV) Nonreactive Non-Reactive - August Hep B core Ab Negative Negative - September 13 Total (anti-HBc) Hep B Surface Ag Negative Negative - December 01 022 (HBsAg) DIALYSIS PRESCRIPTION CCPD Data Element Value Order Date/Time May 04, 2022 Frequency 7X Week Treatment Days MonTueWedThuFriSatSun Dialysis Machine Piatt Estimated Dry Weight 76.5 kg Calcium Content in Bag (mEq/L) 2.5 [...] Dialysis Access Meds-ent ered by Solution patient May 11 of 1 - Dextrose 1.5% Peritoneal Di alysis-PD Catheter-Double Cuff Coiled, Right Upper Quadrant of Abdomen - 2021 Access Placed on [facility] r 2020 Vitals Time Weight BP Heart Rate Temperature Blood Sugar May 11, 2022 74.56 kg 107/58 mmHg 72 beats per 97.3 deg. F - (AM) minute CCPD-Patient[facility] Date Exchanges Fill Volume Exchange Dialysis Access Meds-ent ered by Solution patient May 10 of 1 - Dextrose 1.5% Peritoneal Di alysis-PD Catheter-Double Cuff Coiled, Right Upper Quadrant of Abdomen - 2021 Access Placed on [facility] r 2020 Vitals Time Weight BP Heart Rate Temperature Blood Sugar May 10, 2022 75.1 kg 104/55 mmHg 66 beats per 97.3 deg. F - (AM) minute CCPD-[facility] Date Exchanges Fill Volume Exchange Dialysis Access Meds-ent ered by Solution patient May 09 of 1 - Dextrose 1.5% Peritoneal Di alysis-PD Catheter-Double Cuff Coiled, Right Upper Quadrant of Abdomen - 2021 Access Placed on [facility] r 2020 Vitals Time Weight BP Heart Rate Temperature Blood Sugar May 09, 2022 74.92 kg 112/60 mmHg 68 beats per 97.5 deg. F - (AM) minute
--- OUTSIDE RECORDS SUMMARY | 2022-05-13 07:45 | XMS_ITS | Encounter Summary ---
:1940 Author Organization [facility] Address [address] [place] [address] Care Team Providers Name Role Phone Unavailable Primary Care Provider Unavailable Reason for Visit Reason Comments Med Refill Encounter Details Date Type Department Care Team Description 01/26/2022 Refill [facility], Estela Cummins, Med Refill [facility] [address] [place] [address] [place] [phone] [place] [address] [phone] Social History Tobacco Use Types Packs/Day Years [...] How often do you attend mosque or alevism More than 4 time s [...]
--- OUTSIDE RECORDS SUMMARY | 2022-05-13 07:45 | XMS_ITS | Encounter Summary ---
:1940 Author Organization [facility] Address [address] [place] [address] Care Team Providers Name Role Phone Unavailable Primary Care Provider Unavailable Reason for Visit Reason Comments Release of Information Encounter Details Date Type Department Care Team Description 03/03/2022 Clinical Division of Jessa Heredia of Communication Pulmonary Medicine Trinh Mendes Information in [place] [address] [address] [place], [place] [address] [facility] [address] [place], [place] [phone] (Work) [phone] Social History Tobacco Use Types Packs/Day Years [...] How often do you attend latter-day or rastafarian More than 4 time s [...] [facility] intake Method: MERLINE Ferrell / [id number] documented in this encounter Plan of Treatment Not on filedocumented as of this encounter Visit Diagnoses Not on filedocumented in this encounter
--- OUTSIDE RECORDS SUMMARY | 2022-05-13 07:45 | XMS_ITS | Encounter Summary ---
:1940 Author Organization [facility] Address [address] [place] [address] Care Team Providers Name Role Phone Unavailable Primary Care Provider Unavailable Reason for Referral Outpatient (Routine) - Closed Specialty Diagnoses / Procedures Referred By Contact Refer red To Contact Pulmonary Medicine Diagnoses Empyema Pleural (HCC) Maria G Adame [facility] Estela, M.S. [address] [place] [phone] Referral ID Status Reason Start Date Expiration Date Visits Requ ested Visits Authorized [id number] Closed 12/07/2021 12/07/2022 1 1 Reason for Visit Outpatient (Routine) - Closed Specialty Diagnoses / Procedures Referred By Contact Refer red To Contact Pulmonary Medicine Diagnoses Empyema [facility]ural [facility]HCC[facility] [address] [place] [phone] Referral ID Status Reason Start Date Expiration Date Visits Requ ested Visits Authorized [id number] Closed 12/07/2021 12/07/2022 1 1 Encounter Details Date Type Department Care Team Description 12/28/2021 Hospital Encounter Division of Lior, Peng Emerson Empyema Pleural Pulmonary Medicine Trinh ([facility]) in [place], [address] [place], [place] [address] [place] [phone] [place], [place] [phone] (Work) [phone] Social History Tobacco Use Types Packs/Day Years [...] How often do you attend jain or protestant More than 4 time s [...] He is a delightful 81-year-old man from [place], [place], who was recently hospitalized from 12/02 [...] have a follow-up CT scan done at [facility]. We discussed elevation of the head of the bed in detail, given his recurrent risk for aspiration pneumonia. He also is taking an antiacid pill and avoiding meals before he goes to bed. Given his achalasia, he is on a liquid diet. MARGIN CODE: E5, 50 minutes. Peng Tinajero M.D. CT CT Job ID: [id number] documented in this encounter Plan of Treatment Scheduled Referrals Name Type Priority Associated Order Schedule Diagnoses Pulmonary Medicine Outpatient Referral Routine Empyema Pleural Once for 1 - Pleural Disease (HCC) Occurrence s starting consult (clinic) 12/28/2021 until 12/28/2021 documented as of this encounter Visit Diagnoses Diagnosis Empyema Pleural (HCC) documented in this encounter
--- OUTSIDE RECORDS SUMMARY | 2022-05-13 07:45 | XMS_ITS | Encounter Summary ---
:1940 Author Organization [facility] Address [address] [place] [address] Care Team Providers Name Role Phone Unavailable Primary Care Provider Unavailable Reason for Referral Outpatient (Routine) - Closed Specialty Diagnoses / Procedures Referred By Contact Refer red To Contact Diagnoses Effusion Pericardial Acute (HCC) Jessa Heredia M.D. [facility] Procedures Echo Transthoracic (TTE) [address] [place] [address] Referral ID Status Reason Start Date Expiration Date Visits Requ ested Visits Authorized [id number] Closed 03/02/2022 03/02/2023 1 1 Outpatient (Routine) - Closed Specialty Diagnoses / Procedures Referred By Contact Refer red To Contact Diagnoses Effusion Pericardial Acute (HCC) Jessa Heredia M.D. [facility] Procedures ECG 12 Lead [address] [place] [phone] Referral ID Status Reason Start Date Expiration Date Visits Requ ested Visits Authorized [id number] Closed 03/02/2022 03/02/2023 1 1 Outpatient (Routine) - Closed Specialty Diagnoses / Procedures Referred By Contact Refer red To Contact Cardiovascular Diseases / Diagnoses Effusion Pericardial Acute (HCC) Jessa Heredia [facility] Cardiovascular Disease MCodie [address] [place] [address] Referral ID Status Reason Start Date Expiration Date Visits Requ ested Visits Authorized [id number] Closed 03/02/2022 03/02/2023 1 1 Encounter Details Date Type Department Care Team Description 03/02/2022 Orders Only Division of Pulmonary Jessa Heredia, Effusion Pericardial Medicine in M.DBailey Acute (HCC) (Primary [place], [place] [address]x) [address] [place] [phone] Social History Tobacco Use Types Packs/Day Years [...] or relatives? How often do you attend roman catholic or buddhist More than 4 time s per year 04/11/2022 services? Do you belong to any clubs or organizations Yes 04/11/2022 such as roman catholic groups, unions, fraternal or athletic groups, [...] cardiology Referral Pericardial Acute consult (clinic) ([facility]) (Approximat e), Expires: 06/02/2023 documented as of this encounter Results (TTE) 2D ECHO DOPPLER COLOR (04/05/2022 3:55 PM CDT) [facility] Method Time Signature Ejection Fraction 66 MC [...] was performed but not reported based on translator/interpreter's judgment. No regional wall motion abnormalities. Abnormal [...] Signature Ventricular Rate 62 BPM MUSE ECG/Min OR Interval 206 ms MUSE QRSD Interval 128 ms MUSE QT Interval 446 ms MUSE QTC Interval 452 ms MUSE P Chandler 10 degrees MUSE R Chandler 6 degrees MUSE T Wave Chandler 26 degrees MUSE Specimen Anatomical Collection Method [...]
--- OUTSIDE RECORDS SUMMARY | 2022-05-13 07:45 | XMS_ITS | Encounter Summary ---
:1940 Author Organization [facility] Address [address] [place] [address] Care Team Providers Name Role Phone Unavailable Primary Care Provider Unavailable Reason for Visit Auth/Cert Specialty Diagnoses / Procedures Referred By Contact Refer red To Contact Diagnoses Hematemesis Hematemesis on Coumadin Procedures DIR Referral ID Status Reason Start Date Expiration Date Visits Requ ested Visits Authorized [id number] 1 1 Encounter Details Date Type Department Care Team Description 12/09/2021 - Hospital Encounter [facility] Kong Coates M.D. [address] [place] [address] Hematemesis 12/11/2021 [facility] [address] [place] [address] (Primary Dx) [facility], Fourth Floor [address] [place] [id number] Social History Tobacco Use Types Packs/Day Years [...] or relatives? How often do you attend confucianism or mosque More than 4 time s per year 04/11/2022 services? Do you belong to any clubs or organizations Yes 04/11/2022 such as confucianism groups, unions, fraternal or athletic groups, or [...] care provider on file. Discharge Provider Team: [facility] Internal Medicine ([facility]) RST Medicine 8 ([facility]) Primary Care Provider Phone Number: None Primary Care Provider Fax Number: None Other Providers: Nargis Goldstein APRN, C.N.P., M.S.N. 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 Pulmonary Medicine For appointment details refer to your Patient Appointment Guide. TEST RESULTS PENDING AT DISCHARGE Pending Labs None DETAILS OF HOSPITAL STAY REASON FOR ADMISSION Hematemesis HOSPITAL COURSE Mr. 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 Is very active. He has a [...] 1968, incl last a Heller's procedure at [facility] 11/2020. On 12/09, he presented via EMS [...] mg IV pantoprazole and directly admitted to [facility] service for ongoing management. On the [...] Mr. David Castro today and provided counseling [id number] at bedside. I personally spent over half of a total 35 minutes in counseling and discussion with the patient and in coordination of care as described above to facilitate the hospital discharge. Discharge instructions were provided to the patient and caregiver(s). documented in this encounter Discharge Instructions Discharge InstructionsBernice Pisano - 12/10/2021 7:26 AM CDT You were discharged from the [facility] Medicine 8 ([facility]) Service. Please identify this service name if you call with questions after hospitalization. AppointmentsBernice Pisano - 12/10/2021 11:04 AM CDT Take a copy of this after visit summary to your appointment(s). DIVINA Van December 14, 2021 - Monday --10:05 AM - Hospital Follow-Up with Dr. Harish Silver, at [facility] Address: [address] [place] [address] [place] [id number] If you have any questions, concerns, or need to reschedule please call [phone] documented in this encounter Medications at Time [...] about patient's nutritional care please contact pager [phone] on weekdays or [phone] on weekends/holidays. Nicole Mendez APRN, C.N.P., D.N.P. [...] has been staffed with Dr. Kennedy, Nephrology business analyst consultant. For questions or concerns, please contact Neph A ESRD pager at [phone]. Sherri Alarcon R.R.T., L.R.T. - 12/11/2021 1:41 AM CDT Pt assisted with home CPAP set-up. Pt declined nasal liquicell. States that he is independent with placement and does not require assistance. He knows that RT is a page away if he needs any help. Electronically signed by: Sherri Alarcon R.R.T., DuglasRJazmín 12/11/21 2:09 AM CDT Arti Loozya M.D. - 12/10/2021 1:31 PM CDT I saw and evaluated Mr. David Castro on rounds today with our medicine team, and I agree with the findings and plan as documented in today's progress note by Maria G Adame PA-C, with the following comments: David Castro is a 81 y.o. male who was recently discharged from our [address] service following an admission for a [...] team's plan of care. Counseling was provided [id number] at bedside regarding the plan of care [...] pending hospital course Kasia Ridley PharmCodie, R.Ph. [phone] Maria G Adame P.A.-C., M.S. - 12/10/2021 7:10 AM CDT T Medicine 8 ([facility]) Progress Note SUBJECTIVE Interval history: Patient was [...] / PLAN Mr. Castro is hospitalized on [place] [address] ([facility]) for evaluation and management of Hematemesis. 81 year old male admitted for weakness and coffee-ground emesis. Recently discharged [facility] after 6day admission for right pleural [...] 1967, incl last a Heller's procedure at [facility] 11/2020), HTN, and ELENI on CPAP. EMS was called and he was taken to [facility] ED. Apparently EMS noted ice cream container worth of reddish vomit that they thought was blood. SBP was 90s but improved to 120s with 1.5 L IVF. He was not transfused at the OSH ED as Hb was 12.2. He was given Kcentra (INR was 1.4) and 40 mg IV pantoprazole and directly admitted to [facility]. #1 Weakness, generalized #2 Dark colored [...] care was discussed with Dr. Lozoya, HIM business analyst consultant. Counseling was provided dgug-kl-ccur at bedside regarding the plan of care as stated above. I personally spent over half of a total 35 minutes in counseling and coordination of care as documented above. Maria G Adame P.A.-C., M.S. Medicine 1 - [id number] Addendum: EGD showed stasis ulcer, and brownish [...] Status Comment 12/09/2021 2:28 PM Per 12/08 [facility] discharge AVS Taking? Last Dose Informant [...] M.B., Ch.B. - 12/09/2021 7:19 PM CDT [facility] Medicine 8 ([facility]) Admission Note SUBJECTIVE CHIEF COMPLAINT Coffee ground emesis x6 last night HISTORY OF PRESENT ILLNESS Mr. David Castro is a 81 y.o. male who was dismissed from [facility] only yesterday having been [...] 1967, incl last a Heller's procedure at [facility] 11/2020), HTN, and ELENI on CPAP. [...] called EMS and he was taken to [facility] ED. Apparently EMS did take note of [...] is not in the electronic chart. No extra-SATELLITE INSTRUCTION FACILITATOR infectious source was found and he has had no further SATELLITE INSTRUCTION FACILITATOR infection. 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 -NPO at [place] in case of EGD in am. Tubes/lines: PIV x2 ordered. VTE prophylaxis: SCD only given bleeding. Code status: Full Code, discussed. Baseline Mobility: BMAT Level 4 (Able to stand and walk) Disposition: Home Counseling was provided [id number]-[id number] at bedside regarding the plan of care [...] was reviewed with Dr. Kennedy, Nephrology A business analyst consultant For questions or concerns, please page the Nephrology A CORN PRESS OPERATOR/PA pager ([phone]). Associated attestation - Yamileth Kennedy M.D., Ph.D. [...] documented in this encounter Nursing Notes Janeth iNcole R.N. - 12/11/2021 12:09 PM CDT Shift Goals: Clinical Goals for the Shift: pt will remain stable for d/c Identify possible barriers to meeting goals/advancing plan of care: none End of Shift Summary: Patient discharged to home/self care with providing transportation. Education on diet recommendations provided by electronic organ technician. VSS. Belongings sent with patient. Problem: PAIN [...] wouldn't, I feel so full and nauseous. Oamr Haque R.N. - 12/09/2021 5:34 PM CDT [...] Mr. 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 Is very active. He has a [...] 1968, incl last a Heller's procedure at [facility] 11/2020. On 12/09, he presented via [...] mg IV pantoprazole and directly admitted to [facility] service for ongoing management. On the [...] 12/11/2021 DTL Black/ mL/min/BSA 9:18 AM CDT Tajik Comment: ----ADDITIONAL INFORMATION---- Estimated GFR calculated using [...] LAB BLOOD ADD-ON Performing Organization Address City/State/[facility] Code Phon e Number [facility] - [address] [place] [phone] [facility] [place] [address] [facility] [address] [facility] (ABNORMAL) CBC without Differential (12/11/2021 7:30 AM CDT) [facility] gist Method Time Signature Hemoglobin 8.8 [...] M.S. LAB BLOOD ADD-ON Performing Organization Address City/[facility] Code Phon e Number [facility] - 200 [place], [place] [address] [place] [address] [address] (ABNORMAL) Hemoglobin (12/10/2021 4:17 PM CDT) P athologist Signature Hemoglobin 10.7 (L) 13.2 - 16.6 12/10/2021 DTL g/dL 5:00 PM CDT Specimen Anatomical Collection Method Collection Time Receive d Time (Source) Location / / Volume Laterality Blood (Blood, 12/10/2021 4:17 PM 12/11/19 4:49 Venous) CDT PM CDT Maria G Adame P.A.-C., M.S. LAB BLOOD ADD-ON Performing Organization Address [facility] Phon e Number [facility] - [address] [address] [address] Upper GI Endoscopy (12/10/2021 11:53 AM CDT) Specimen (Source) Anatomical Collection Method Collection Time Re ceived Time Location / / Volume Laterality 12/10/2021 11:53 AM CDT Impressions [facility] - 12/10/2021 4:10 PM CDT Post-op Diagnoses: [...] bulb. ? - No specimens collected. Narrative [facility] - 12/10/2021 4:10 PM CDT Saul 6 [...] No immedia te complications. 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 LAB BLOOD ADD-ON Performing Organization Address [facility] Phon e Number [facility] - [address] (ABNORMAL) GGT (Gamma-Glutamyltransferase) (12/10/2021 7:33 AM CDT) Component Value Ref Test Analysis Performed At [facility] gist Range Method Time Signature Gamma 121 (H) 8 - 61 12/10/2021 DTL Glutamyltransferase U/L 1:14 PM CDT (GGT), S Specimen Anatomical Collection Method Collection Time Receive d Time (Source) Location / / Volume Laterality Blood (Blood, 12/10/2021 7:33 AM 12/11/19 Venous) CDT 12:43 PM CDT Maria G Adame P.A.-C., M.S. LAB BLOOD ADD-ON Performing Organization Address [facility] Phon e Number [facility] - 200 [place] [phone] [address] Phosphorus Inorganic (12/10/2021 7:33 AM CDT) P athologist Signature Phosphorus 3.4 2.5 - 4.5 12/10/2021 DTL (Inorganic), S mg/dL 9:20 AM CDT Specimen Anatomical Collection Method Collection Time Receive d Time (Source) Location / / Volume Laterality Blood (Blood, 12/10/2021 7:33 AM 12/11/19 8:15 Venous) CDT AM CDT Maria G Adame P.A.-C., M.S. LAB BLOOD ADD-ON Performing Organization Address City/[facility] Phon e Number [facility] - [address] (ABNORMAL) CBC without Differential (12/10/2021 7:33 AM CDT) [facility] Method Time Signature Hemoglobin 10.7 (L) [...] LAB BLOOD ADD-ON Performing Organization Address City/State/[facility] Code Phon e Number [facility] - [address] [place], [place] [address] [facility] [place] [address] [facility] 200 [facility] (ABNORMAL) Basic Metabolic Panel (12/10/2021 7:33 AM [...] 12/10/2021 DTL Black/ mL/min/BSA 8:31 AM CDT Tajik Comment: ----ADDITIONAL INFORMATION---- Estimated GFR calculated using [...] City/State/ZIP Code Phon e Number [facility] - [address] [place] [phone] [facility] [place] [address] [facility] 200 [facility] SARS Coronavirus 2, PCR Rapid, V (12/09/2021 7:48 PM CDT) [facility] Method Time Signature SARS CoV-2, Undetected Undetected 12/09/2021 STMA PCR, Rapid, V 8:26 PM CDT Comment: ----ADDITIONAL INFORMATION---- This RT-PCR test was performed using the Penny SARS-CoV-2 and Influenza A/B Reagent assay from [employer], which has received Emergency Use Authori zation(EUA) by the U.S. Food and Drug Administration . Fact sheets for this Emergency Use Autho rization (EUA) assay can be found at the following link s: For Healthcare Providers: https://www.fda.gov/media/424820/downloa d For Patients: https://www.fda.gov/media/185457/downloa d SARS Coronavirus 2, Source, Rapid Swab, Nasopharynx 12/09/2021 8:00 PM CDT [facility] Specimen Anatomical Collection Method Collection Time Receive d Time (Source) Location / / Volume Laterality Varies 12/09/2021 7:48 PM 2 7:59 CDT PM CDT Marlyn Benson P.A.-C. LAB MICROBIOLOGY - GENERAL ORDERABLES Performing Organization Address City/[facility]/ZIP Code Phon e Number [facility] - 200 [place], [place] [address] [place] [address] [facility] 200 [facility] ECG 12 Lead (12/09/2021 3:35 PM CDT) athologist Signature Ventricular Rate 88 BPM MUSE ECG/Min QRSD Interval 124 ms MUSE QT Interval 398 ms MUSE QTC Interval 481 ms MUSE R Iliff 0 degrees MUSE T Wave Iliff -1 degrees MUSE Specimen Anatomical Collection Method [...] Sanchez, Ch.B. ECG ORDERABLES Performing Organization Address City/[facility]/ZIP Code Phon e Number MUSE MUSE NA Type and Screen (with reflex Antibody ID) (12/09/2021 3:15 PM CDT) Patholo gist Method Time Signature ABORh O Pos Not 12/09/2021 STRM applicable 4:06 PM CDT Antibody Negative Negative 12/09/2021 STRM Screen 4:17 PM CDT Type & Screen 12/12/2021 12/09/2021 STRM Expiration 23:59 4:06 PM CDT Testing Ashley DEFAULT 12/09/2021 STRM Location 3:24 PM CDT Specimen Anatomical Collection Method Collection Time Receive d Time (Source) Location / / Volume Laterality Blood (Blood, 12/09/2021 3:15 PM 12/10/19 3:24 Venous) CDT PM CDT Lorne Sanchez, Ch.B. LAB BLOOD BANK TEST ORDERABL ES Performing Organization Address City/State/ZIP Code Phon e Number [facility] - [address] [place], [place] [address] [facility] [place] [place] [address] [facility] [address] (ABNORMAL) Basic Metabolic [...] 12/09/2021 DTL Black/ mL/min/BSA 4:43 PM CDT Tajik Comment: ----ADDITIONAL INFORMATION---- Estimated GFR calculated using [...] LAB BLOOD ADD-ON Performing Organization Address City/State/[facility] Code Phon e Number [facility] - [address] [place] [phone] [facility] [place] [address] [facility] 200 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
--- OUTSIDE RECORDS SUMMARY | 2022-05-13 07:45 | XMS_ITS | Encounter Summary ---
:1940 Author Organization [facility] Address [address] [place] [address] Care Team Providers Name Role Phone Unavailable Primary Care Provider Unavailable Reason for Visit MRI/CAT/PET Scan (Routine) - Modified Order Specialty Diagnoses / Procedures Referred By Contact Refer red To Contact Radiology Diagnoses Empyema Pleural (HCC) Maria G Adame P.A.-C., [facility] Procedures CT Chest without IV Contrast CT Chest with IV Contrast [facility] [address] [place] [phone] Referral ID Status Reason Start Date Expiration Date Visits V isits Requested Authorized [id number] Modified 12/07/2021 12/07/2022 1 1 Order Encounter Details Date Type Department Care Team Description 12/28/2021 Hospital Encounter Department of Maria G Adame, Empyem a Pleural (HCC) Radiology, [facility] [place], [facility], in [address] [place] [address] [place] [phone] [place], [place] [phone] (Work) [phone] Social History Tobacco Use Types Packs/Day Years [...] or relatives? How often do you attend rastafarian or moravian More than 4 time s per year 04/11/2022 services? Do you belong to any clubs or organizations Yes 04/11/2022 such as rastafarian groups, unions, fraternal or athletic groups, or [...]
--- OUTSIDE RECORDS SUMMARY | 2022-05-13 07:45 | XMS_ITS | Encounter Summary ---
:1940 Author Organization [facility] Address [address] [place] [address] Care Team Providers Name Role Phone Unavailable [...] How often do you attend moravian or temple More than 4 time s [...]
--- OUTSIDE RECORDS SUMMARY | 2022-05-13 07:45 | XMS_ITS | Encounter Summary ---
:1940 Author Organization [facility] Address [address] [place] [address] Care Team Providers Name Role Phone Unavailable Primary Care Provider Unavailable Encounter Details Date Type Department Care Team Description 04/04/2022 Hospital Encounter Department of Mehrdad Lazcano Pericardial Acute (HCC); Laboratory Medicine M, NEUROSURGICAL PHYSICIAN ASSISTANT, C.N .P. 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); and Pathology, [address] Atrial Fibrillation Paroxysmal (HCC); [facility], [place], [place] Bundle B ranch Block Left; [place], [address] Dialysis Peritoneal Status (HCC) [place] [phone] [address] [facility] (Work) [place], [place] [phone] [address] (Fax) [phone] Social History Tobacco Use Types Packs/Day Years [...] How often do you attend hoahaoism or sikhism More than 4 time s [...] (ABNORMAL) Sedimentation Rate (04/04/2022 11:36 AM CDT) [facility] Method Time Signature Sedimentation 61 (H) 3 - 28 04/04/2022 DTL Rate, B mm/h 12:50 PM CDT Specimen Anatomical Collection Method Collection Time Receive d Time (Source) Location / / Volume Laterality Blood (Blood, 04/04/2022 11:36 04/04/2022 Venous) AM CDT 11:56 AM CDT Mehrdad Lazcano APRN, C.N.P. LAB BLOOD ADD-ON Performing Organization Address City/State/ZIP Code Phon e Number [facility] - [address] [place], [place] [address] [facility] [place] [address] Laboratories-[facility] [address] (ABNORMAL) CBC with Differential, Blood (04/04/2022 11:36 AM CDT) [facility] Method Time Signature Hemoglobin 11.7 (L) 13.2 [...] City/State/ZIP Code Phon e Number [facility] - [address] [place], [place] [address] [facility] [place] [address] Laboratories-[facility] [address] (ABNORMAL) CRP (C-Reactive Protein) (04/04/2022 11:35 AM CDT) P athologist Signature C-Reactive 16.2 (H) <=8.0 mg/L 04/04/2022 DTL Protein (CRP), 1:55 PM CDT S Specimen Anatomical Collection Method Collection Time Receive d Time (Source) Location / / Volume Laterality Blood (Blood, 04/04/2022 11:35 04/04/2022 Venous) AM CDT 12:06 PM CDT Mehrdad Lazcano APRN, C.N.P. LAB BLOOD ADD-ON Performing Organization Address City/[facility] Phon e Number [facility] - [address] (ABNORMAL) NT-Pro B-Type Natriuretic Peptide (BNP) [...] C.N.P. LAB BLOOD ADD-ON Performing Organization Address City/[facility] Phon e Number [facility] - [address] (ABNORMAL) Comprehensive Metabolic Panel (04/04/2022 11:35 [...] 04/04/2022 DTL Black/ mL/min/BSA 1:48 PM CDT Armenian Comment: ----ADDITIONAL INFORMATION---- Estimated GFR calculated using [...] City/State/ZIP Code Phon e Number [facility] - [address] [place], [place] [address] [facility] [place] [address] Laboratories-[facility] [address] documented in this encounter Visit Diagnoses Diagnosis Effusion Pericardial Acute (HCC) 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
--- OUTSIDE RECORDS SUMMARY | 2022-05-13 07:45 | XMS_ITS | Encounter Summary ---
:1940 Author Organization [facility] Address [address] [place] [address] Care Team Providers Name Role Phone Unavailable Primary Care Provider Unavailable Reason for Referral Outpatient (Routine) - Closed Specialty Diagnoses / Procedures Referred By Contact Refer red To Contact Pulmonary Medicine Peng Tinajero M.D. [facility] [address] [place] [address] Referral ID Status Reason Start Date Expiration Date Visits Requ ested Visits Authorized [id number] Closed 12/28/2021 12/28/2022 1 1 Scheduling Instructions F/U pleural clinic. I am happy to see bu t if this doesn't work out he can be seen in pleural clinic. RI/CAT/PET Scan (Routine) - Closed Specialty Diagnoses / Procedures Referred By Contact Refer red To Contact Radiology Diagnoses Pneumonitis Due To Inhalation Of Food And Vomit (HCC) Peng Tinajero M.D. [facility] Procedures CT Chest without IV Contrast [place] CT THORAX WO CNTRST [address] [place], [place] [address] Referral ID Status Reason Start Date Expiration Date Visits Requ ested Visits Authorized [id number] Closed 12/28/2021 12/28/2022 1 1 Encounter Details Date Type Department Care Team Description 12/28/2021 Orders Only Division of Pulmonary Peng Tinajero, Pneum onitis Due To Medicine in Trinh Rogers [facility] [place] 200 [facility] Vomit (HCC) 200 [place] [address] [phone] Social History Tobacco Use Types Packs/Day Years [...] How often do you attend mandaeism or samaritan More than 4 time s per year [...] Name Type Priority Associated Diagnoses Order S [facility] Pulmonary Medicine Outpatient Referral Routine [...]
--- OUTSIDE RECORDS SUMMARY | 2022-05-13 07:45 | XMS_ITS | Encounter Summary ---
:1940 Author Organization [facility] Address [address] [place] [address] Care Team Providers Name Role Phone Unavailable Primary Care Provider Unavailable Encounter Details Date Type Department Care Team Description 12/27/2021 Clinical Communication Visit Review in [place], [place] [address] [place], [place] [address] Social History Tobacco Use Types Packs/Day Years [...] How often do you attend mosque or muslim More than 4 time s [...]
--- OUTSIDE RECORDS SUMMARY | 2022-05-13 07:45 | XMS_ITS | Encounter Summary ---
:1940 Author Organization [facility] Address [address] [place] [address] Care Team Providers Name Role Phone Unavailable Primary Care Provider Unavailable Reason for Referral Outpatient (Routine) - Authorized Specialty Diagnoses / Procedures Referred By Contact Refer red To Contact Diagnoses Effusion Pericardial Acute (HCC) Chronic Systolic (Congestive) Heart Failure (HCC) Atrial Fibrillation Paroxysmal (HCC) Bundle Branch Block Left Dialysis Peritoneal Status (HCC) [facility] Procedures ECG Heart rhythm monitor (Holter) C.N.P. [address] [place] [address] Referral ID Status Reason Start Date Expiration Date Visits V isits Requested Authorized [id number] Authorized 03/08/2022 03/08/2023 1 1 Reason for Visit Outpatient (Routine) - Authorized Specialty Diagnoses / Procedures Referred By Contact Refer red To Contact Diagnoses Effusion Pericardial Acute (HCC) Chronic Systolic (Congestive) Heart Failure (HCC) Atrial Fibrillation Paroxysmal (HCC) Bundle Branch Block Left Dialysis Peritoneal Status (HCC) [facility] Procedures ECG Heart rhythm monitor (Holter) C.N.P. [address] [place] [address] Referral ID Status Reason Start Date Expiration Date Visits V isits Requested Authorized [id number] Authorized 03/08/2022 03/08/2023 1 1 Encounter Details Date Type Department Care Team Description 04/04/2022 Hospital Department of [place], Effusion Peric ardial Acute (HCC); Encounter Cardiovascular Mehrdad M, Chronic Systo lic (Congestive) Heart Failure (HCC); Diseases in [place], TRAUMA SURGEON, C.N .P. Atrial Fibrillation Paroxysmal (HCC); [place] [address] Bundle Branch Block Left; [address] [place], [place] Dialysis Peritoneal Status ( HCC) [place] [address] [phone] Social History Tobacco Use Types Packs/Day Years [...] How often do you attend adventist or mormon More than 4 time s per year [...] Effusion Perica rdial Results for this CLINIC PAVING FOREMAN CDT Acute (HCC) procedure are in Chronic Systolic the results (Congestive) Heart section. Failure (HCC) Atrial Fibrillation Paroxysmal (HCC) Bundle Branch Block Left Dialysis Peritoneal Status (HCC) documented in this encounter Results HOLTER MONITOR - IN CLINIC PAVING FOREMAN (04/05/2022 6:00 AM CDT) P athologist Signature [...] Duration 6h 30m duration INFOBIONIC MOME AF [place] 29 percent INFOBIONIC MOME Longest AF 7h [...] seen singly at and around these times. Ultrasound Manager: Marilou Zimmer / Violet Cotton Fellow: Clemente [...] seen singly at and around these times. Ultrasound Manager: Marilou Zimmer / Violet Cotton Fellow: Clemente Dos Santos MD Mehrdad Lazcaon APRN, C.N.P. CV CARDIAC SERVICES PRO CEDURES Performing Organization Address City/State/ZIP Code Phon e Number [facility] INFO[facility]ION[facility] NA documented in this encounter Visit Diagnoses Diagnosis Effusion Pericardial Acute (HCC) 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
--- OUTSIDE RECORDS SUMMARY | 2022-05-13 07:45 | XMS_ITS | Encounter Summary ---
:1940 Author Organization [facility] Address [address] [place] [address] Care Team Providers Name Role Phone Unavailable Primary Care Provider Unavailable Reason for Referral Outpatient (Routine) - Authorized Specialty Diagnoses / Referred By Contact Referred To Procedures Contact Gastroenterology and Diagnoses Vidhya Bergeron [facility] Hepatology Pablo QUINTANILLA.N.Arvin, M.S.N. [address] [place] [phone] Referral ID Status Reason Start Date Expiration Date Visits V isits Requested Authorized [id number] Authorized 12/13/2021 12/13/2022 1 1 Encounter Details Date Type Department Care Team Description 12/13/2021 Clinical Communication RST HIM Vidhya Goldstein [address] [facility] DWIGHT Guevara C.N.PBailey, [place], [place] M.S.N. [address] [place] [phone] Social History Tobacco Use Types Packs/Day Years [...] How often do you attend restorationism or jainism More than 4 time s per year 04/11/2022 services? Do you belong to any clubs or organizations Yes 04/11/2022 such as restorationism groups, unions, fraTaskmit or athletic groups, or school groups? How [...]
--- OUTSIDE RECORDS SUMMARY | 2022-05-13 07:45 | XMS_ITS | Encounter Summary ---
:1940 Author Organization [facility] Address [address] [place] [address] Care Team Providers Name Role Phone Unavailable Primary Care Provider Unavailable Reason for Visit Auth/Cert Specialty Diagnoses / Procedures Referred By Contact Refer red To Contact Diagnoses Hematemesis Hematemesis on Coumadin Procedures DIR Referral ID Status Reason Start Date Expiration Date Visits Requ ested Visits Authorized [id number] 1 1 Encounter Details Date Type Department Care Team Description 12/10/2021 Anesthesia Event Division of Gastroenterology Jamel Powers in [facility] bret Shah, ORTHODONTIC LAB TECHNICIAN, SUPERVISOR SMOKE CONTROL, [address] [place], [place] [address] [facility] [phone] [place] [address] Anesthesia Record Procedure Summary Procedure Name Responsible Anesthesia Start Anesthesia Stop Time Anesthesiologist Time EGD Jamel Powers APRN, 12/10/21 1210 2 1256 (ESOPHAGEALGASTRODU [facility] ODENOSCOPY) Events Date Time Event Comment 12/10/2021 [...] h andoff to the receiving staff during [facility] ch we 1. Identified the patient 2. [...] Roesner, Justin C, Time: 1218 (created via ORTHODONTIC LAB TECHNICIAN, SUPERVISOR SMOKE CONTROL, D.N.P. ORTHODONTIC LAB TECHNICIAN, SUPERVISOR SMOKE CONTROL, DNAP procedure documentation); Mask Ventilation: Not attempted; [...] often do you attend oriental orthodox or sikh More than 4 time s [...] Room / Location: Division of Gastroenterology in [place], [place] Anesthesia Start: 1210 Anesthesia Stop: 1256 [...] ETT location: oral VL device: glide scope Solon scope blade size: 3 Adult tube size: [...] EGD (ESOPHAGEALGASTRODUODENOSCOPY) Location: Division of Gastroenterology in [place], [place] Pertinent components of the patient's history [...] with patient /legal guardian or through an translator/interpreter. Risks/Benefits/Alternatives of Blood transfusion discussed with patient [...] ETT location: oral VL device: glide scope Solon scope blade size: 3 Adult tube size: [...]
--- OUTSIDE RECORDS SUMMARY | 2022-05-13 07:45 | XMS_ITS | Encounter Summary ---
:1940 Author Organization [facility] Address [address] [place] [address] Care Team Providers Name Role Phone Unavailable Primary Care Provider Unavailable Encounter Details Date Type Department Care Team Description 12/08/2021 Orders Only Division of Nephrology and [place], Lyric Leiva PRN, Hypertension, Voodoo C.N.P. [place], in [place], [facility] [address] [place], [place] [address] [place] [address] [place] [address] [phone] Social History Tobacco Use Types Packs/Day Years [...] How often do you attend hinduism or roman catholic More than 4 time s per [...]
--- OUTSIDE RECORDS SUMMARY | 2022-05-13 07:45 | XMS_ITS | Encounter Summary ---
:1940 Author Organization [facility] Address [address] [place] [address] Care Team Providers Name Role Phone Unavailable Primary Care Provider Unavailable Reason for Referral Outpatient (Routine) - Authorized Specialty Diagnoses / Procedures Referred By Contact Refer red To Contact Diagnoses Effusion Pericardial Acute (HCC) Chronic Systolic (Congestive) Heart Failure (HCC) Atrial Fibrillation Paroxysmal (HCC) Bundle Branch Block Left Dialysis Peritoneal Status (HCC) Mehrdad Lazcano APRN, [facility] Procedures ECG Heart rhythm monitor (Holter) C.N.P. [address] [place] [address] Referral ID Status Reason Start Date Expiration Date Visits V isits Requested Authorized [id number] Authorized 03/08/2022 03/08/2023 1 1 Reason for Visit Reason Comments Triage Encounter Details Date Type Department Care Team Description 03/02/2022 Clinical Communication Department of Flavor Extractor, [facility] Cardiovascular Medicine Trinh Alcaraz in [facility] rotary driller helper [address] [place] [address] Social History Tobacco Use Types Packs/Day [...] How often do you attend jew or latter day More than 4 time s per year 04/11/2022 services? Do you belong to any clubs or organizations Yes 04/11/2022 such as jew groups, unions, fraModumetal or athletic groups, or school groups? How [...] you, Mehrdad Lazcano CNP Telephone Encounter - aTna Ren R.N. - 03/07/2022 5:46 PM CDT [...] encounter Results HOLTER MONITOR - IN CLINIC PRODUCT CONTROLLER (04/05/2022 6:00 AM CDT) P athologist Signature [...] Duration 6h 30m duration INFOBIONIC MOME AF [place] 29 percent INFOBIONIC MOME Longest AF 7h [...] seen singly at and around these times. Business Services Officer: Marilou Zimmer / Violet Cotton Fellow: [...] seen singly at and around these times. Business Services Officer: Marilou Zimmer / Violet Cotton Fellow: Clemente Dos Santos MD Mehrdad Lazcano APRN, C.N.P. CV CARDIAC SERVICES PRO CEDURES Performing Organization Address City/State/ZIP Code Phon e Number [facility] INFO[facility] NA (ABNORMAL) Sedimentation Rate (04/04/2022 11:36 AM CDT) [facility] Method Time Signature Sedimentation 61 (H) 3 - 28 04/04/2022 DTL Rate, B mm/h 12:50 PM CDT Specimen Anatomical Collection Method Collection Time Receive d Time (Source) Location / / Volume Laterality Blood (Blood, 04/04/2022 11:36 04/04/2022 Venous) AM CDT 11:56 AM CDT Mehrdad Lazcano APRN, C.N.P. LAB BLOOD ADD-ON Performing Organization Address [facility] Phon e Number [facility] - [address] [place] [address] [facility] [place] [address] Laboratories-[facility] 200 [facility] (ABNORMAL) CBC with Differential, Blood (04/04/2022 11:36 AM CDT) [facility] Minimus Spine Method Time Signature Hemoglobin 11.7 (L) 13.2 [...] Performing Organization Address City/[facility] Phon e Number [facility] [address] (ABNORMAL) CRP (C-Reactive Protein) (04/04/2022 11:35 [...] Performing Organization Address City/[facility] Phon e Number [facility] [address] (ABNORMAL) NT-Pro B-Type Natriuretic Peptide (BNP) [...] - [facility] - [address] [place], [place] [address] [facility] [place] [place] [address] [facility] [address] (ABNORMAL) [...] 04/04/2022 DTL Black/ mL/min/BSA 1:48 PM CDT Wallisian Comment: ----ADDITIONAL INFORMATION---- Estimated GFR calculated using [...] [facility] - [address] [place], [place] [address] [facility] [place] [address] Laboratories-[facility] [address] documented [...]
--- OUTSIDE RECORDS SUMMARY | 2022-05-13 07:45 | XMS_ITS | Encounter Summary ---
:1940 Author Organization [facility] Address [address] [place] [address] Care Team Providers Name Role Phone Unavailable Primary Care Provider Unavailable Reason for Referral Outpatient (Routine) - Closed Specialty Diagnoses / Procedures Referred By Contact Refer red To Contact Diagnoses Effusion Pericardial Acute (HCC) Jessa Heredia M.D. [facility] Procedures Echo Transthoracic (TTE) [address] [place], [place] [address] Referral ID Status Reason Start Date Expiration Date Visits Requ ested Visits Authorized [id number] Closed 03/02/2022 03/02/2023 1 1 Reason for Visit Outpatient (Routine) - Closed Specialty Diagnoses / Procedures Referred By Contact Refer red To Contact Diagnoses Effusion Pericardial Acute (HCC) Jessa Heredia M.D. [facility] Procedures Echo Transthoracic (TTE) [address] [place], [place] [address] Referral ID Status Reason Start Date Expiration Date Visits Requ ested Visits Authorized [id number] Closed 03/02/2022 03/02/2023 1 1 Encounter Details Date Type Department Care Team Description 04/05/2022 Hospital Department of Jessa Heredia Effusion Encounter Cardiovascular Trinh Mendes Pericardial Acute Diseases in [place], Formerly named [facility] [address] [facility] ([facility]) [place], [place] [address] [facility] [address] [place], [place] [phone] (Work) [phone] Social History Tobacco Use Types Packs/Day Years [...] How often do you attend congregational or islam More than 4 time s [...] ECHO DOPPLER COLOR (04/05/2022 3:55 PM CDT) [facility] gist Method Time Signature Ejection Fraction 66 [...] was performed but not reported based on museum or zoo director's judgment. No regional wall motion abnormalities. Abnormal [...]
--- OUTSIDE RECORDS SUMMARY | 2022-05-13 07:45 | XMS_ITS | Encounter Summary ---
:1940 Author Organization [facility] Address [address] [place] [address] Care Team Providers Name Role Phone Unavailable Primary Care Provider Unavailable Encounter Details Date Type Department Care Team Description 12/09/2021 Clinical Communication [facility] [place], [facility], P.Sandra, M.S . [facility], [address] [place] [address] Third [place], [place] [address] [place] [address] [place], [place] [phone] [address] (Work) [phone] Social History Tobacco Use Types Packs/Day Years [...] How often do you attend anglican or jew More than 4 time s per year [...]
--- OUTSIDE RECORDS SUMMARY | 2022-05-13 07:45 | XMS_ITS | Encounter Summary ---
:1940 Author Organization [facility] Address [address] [place] [address] Care Team Providers Name Role Phone Unavailable Primary Care Provider Unavailable Reason for Referral MRI/CAT/PET Scan (Routine) - Closed Specialty Diagnoses / Procedures Referred By Contact Refer red To Contact Radiology Diagnoses Pneumonitis Due To Inhalation Of Food And Vomit (HCC) Peng Tinajero M.D. [facility] Procedures CT Chest without IV Contrast [place] CT THORAX WO CNTRST [address] [place] [phone] Referral ID Status Reason Start Date Expiration Date Visits Requ ested Visits Authorized [id number] Closed 12/28/2021 12/28/2022 1 1 Reason for Visit MRI/CAT/PET Scan (Routine) - Closed Specialty Diagnoses / Procedures Referred By Contact Refer red To Contact Radiology Diagnoses Pneumonitis Due To Inhalation Of Food And Vomit (HCC) Peng Tinajero M.D. [facility] Procedures CT Chest without IV Contrast [place] CT THORAX WO CNTRST [address] [place] [phone] Referral ID Status Reason Start Date Expiration Date Visits Requ ested Visits Authorized [id number] Closed 12/28/2021 12/28/2022 1 1 Encounter Details Date Type Department Care Team Description 03/02/2022 Hospital Encounter Department of Peng Tinajero Pneumon itis Due To RadiologyDanny M.D. Inhalation Of Food Building, in [address] [facility] And Vomit (HCC) [place], [place] [address] [address] [place], [place] [phone] [address] (Work) [phone] Social History Tobacco Use Types Packs/Day Years [...] How often do you attend anabaptism or judaism More than 4 time s [...]
--- OUTSIDE RECORDS SUMMARY | 2022-05-13 07:46 | XMS_ITS | Encounter Summary ---
:1940 Author Organization [facility] Address [address] [place] [address] Care Team Providers Name Role Phone Unavailable Primary Care Provider Unavailable Reason for Referral Outpatient (Routine) - Closed Specialty Diagnoses / Procedures Referred By Contact Refer red To Contact Pulmonary Medicine Diagnoses Empyema Pleural (HCC) [facility] Estela, M.S[facility] [address] [place] [phone] Referral ID Status Reason Start Date Expiration Date Visits Requ ested Visits Authorized [id number] Closed 12/07/2021 12/07/2022 1 1 Encounter Details Date Type Department Care Team Description 12/07/2021 Clinical Communication RST HIM Maria G Adame, [address] [place] [address] Estela, M.S. [place], [place] [address] [place] [phone] [place] [address] Social History Tobacco Use Types Packs/Day Years [...] How often do you attend jewish or restorationist More than 4 time s per year 04/11/2022 services? Do you belong to any clubs or organizations Yes 04/11/2022 such as jewish groups, unions, fraternal or athletic groups, or [...] Name Type Priority Associated Diagnoses [facility] Pul[facility] Medicine Outpatient Referral Routine Empyema [...]
--- OUTSIDE RECORDS SUMMARY | 2022-05-13 07:46 | XMS_ITS | Encounter Summary ---
:1940 Author Organization [facility] Address [address] [place] [address] Care Team Providers Name Role Phone Unavailable [...] or relatives? How often do you attend episcopalian or quaker More than 4 time s per year 04/11/2022 services? Do you belong to any clubs or organizations Yes 04/11/2022 such as episcopalian groups, unions, fraternal or athletic groups, or [...]
--- OUTSIDE RECORDS SUMMARY | 2022-05-13 07:46 | XMS_ITS | Encounter Summary ---
:1940 Author Organization [facility] Address [address] [place] [address] Care Team Providers Name Role Phone Unavailable [...] How often do you attend baptism or yazidism More than 4 time s [...]
--- OUTSIDE RECORDS SUMMARY | 2022-05-13 07:46 | XMS_ITS | Encounter Summary ---
:1940 Author Organization [facility] Address [address] [place] [id number] Care Team Providers Name Role Phone Unavailable Primary Care Provider Unavailable Reason for Visit Auth/Cert Specialty Diagnoses / Procedures Referred By Contact Refer red To Contact Diagnoses Empyema Pleural (HCC) weakness Procedures DIR TO IP Referral ID Status Reason Start Date Expiration Date Visits Requ ested Visits Authorized [id number] 1 1 Encounter Details Date Type Department Care Team Description 2021 - [facility] John Paul Dockery M.D., M.P.H. [address] [place] [address] Hydropneumothorax (Primary Dx); [facility] [address] [place] [address] Empyema Pleural (HCC); [facility], Ace Menchaca M.D. Effusion Pleural; Domitilla Dysphagia; Building, [facility] Floor [address] [place] [phone] Social History Tobacco Use Types Packs/Day [...] or relatives? How often do you attend islam or alevism More than 4 time s per year 04/11/2022 services? Do you belong to any clubs or organizations Yes 04/11/2022 such as islam groups, unions, fraternal or athletic groups, or [...] CDT DISCHARGE SUMMARY BRIEF OVERVIEW Discharge Hospital: [facility] Discharge Provider: Arti Lozoya M.D. Discharge Provider Team: Hospital Internal Medicine ([facility]) - [facility] Medicine 8 ([facility]) No primary care provider on file. [...] Admitting/Central Scheduling 12/28/2021 8:[address] JUN [place] LOS 809 Radiology 12/28/2021 1:30 PM Peng Tinajero M.D. Pulmonary Medicine For appointment details refer to your Patient Appointment Guide. TEST RESULTS PENDING AT DISCHARGE Pending Labs Order Current Status Fungal Culture, Routine In process DETAILS OF HOSPITAL STAY REASON FOR ADMISSION Empyema Pleural (HCC) HOSPITAL COURSE Mr. David Castro is a 81 y.o. male who presented to the [facility] ED with a chief complaint of [...] both lower legs. He initially presented to [facility], then transitioned to [facility] for further care. Identified on [facility]performed at [facility] to have a complex hydropneumothorax with scattered [...] care was discussed with Dr. Lozoya, HIM product/industry consultant. I saw and evaluated Mr. David Castro today and provided counseling jnuy-so-fazz at bedside. I personally spent a total of 35 minutes in counseling and coordination of care as described above to facilitate the hospital discharge. Discharge instructions were provided to the patient and caregiver(s). documented in this encounter Discharge Instructions Discharge InstructionsBernice Pisano - 2021 7:19 AM CDT You were discharged from the [place] [address] ([facility]) Service. Please identify this service name if you call with questions after hospitalization. AppointmentsBernice Pisano - 2021 2:46 PM CDT Take a copy of this after visit summary to your appointment(s). DIVINA Van December 09, 2021 - --4:10 PM - Hospital Follow-Up with Dr. Doran, at [facility] Address: [address] [place] [address]. [place] [address] If you have any questions, concerns, or need to reschedule please call [phone] AttachmentsThe following attachments cannot be sent through Care Everywhere. Amoxicillin/Clavulanate Potassium (By mouth) (Canadian)Gentamicin (On the skin) (Canadian)Cholecalciferol (By mouth) (Canadian)documented in this encounter Medications at Time of [...] he dismisses today as recommended by Nephrology product/industry consultant Dr. Kennedy. Addendum: Continue to hold his oral torsemide 40 mg daily in the setting of soft blood [facility] peritoneal dialysis nurse in [...] Plan was reviewed with Dr. Kennedy nephrology product/industry consultant. For questions or concerns, please page the Nephrology A BRIDGE WORKER APPRENTICE/PA pager, [phone] or you may text page by clicking [...] each. See patient education flowsheet for details. Day Care Aide assisted with ordering late afternoon meal and breakfast. Patient stops eating by 3-4 pm and sits upright after all meals and while asleep. PLAN If patient remains hospitalized, may consider transitioning to regular diet to allow foods of his tolerance and preference. For questions about patient's nutritional care please contact pager [phone] on weekdays or [phone] on weekends/holidays. Juan Pablo Giron, D., R.Ph. [...] about this note. Yue Perez O.T., [facility] - 12/07/2021 12:48 PM CDT OT [...] pleural fluid when he was admitted to [facility] for heart failure (EF 25-30%). [...] was seen and discussed with the supervising product/industry consultant, Dr. Gonzales. We will sign off. Please contact [phone] with questions or concerns. Jaqueline Moseley M.D. [facility] Fellow Associated attestation - Chely Gonzales [...] is glad to see the sun shining. Popped Corn Oven Attendant initiated contact to introduce spiritual care department and to assess for potential spiritual care needs. Family: Mr. Castro's support system was at the bedside. Marixa Tradition: Mr. Castro is Spiritism, per his chart. He shares that he's been able to watch his islam's services online and has found it to be comforting. Mr. Castro did not think he had any specific spiritual care needs at this time and was alerted to greenhouse manager availability if any needs arise in the future. Plan: Will remain available for spiritual care as needed or requested. Chaplains can be contacted bypaging [phone] (Mandaeism) or [phone] ([place]). Jeannine Jay APRN, C.N.P., M.S.N. - 12/07/2021 [...] or concerns, please page the Nephrology A BRIDGE WORKER APPRENTICE/PA pager, [phone] or you may text page by clicking here. Associated attestation - Yamileth Kennedy M.D., Ph.D. - 12/07/2021 2:18 PM CDT I was the supervising physician in the delivery of the service. Maria G Adame P.A.-C., M.S. - 12/07/2021 7:34 AM CDT [facility] Medicine 8 ([facility]) Progress Note SUBJECTIVE Interval history: Patient [...] / PLAN Mr. Castro is hospitalized on [place] [address] ([facility]) for evaluation and management of Empyema Pleural(HCC). 81 year old male admitted for weakness and new right sided pleural effusion. He was brought to the ED after he was unable to stand to get out of his car due to acute onset of lower extremity weakness. Work up in the ED was notable for Initially He is admitted to [place] [address] for further evaluation. ?? #1 Weakness, generalized [...] weeks -follow up in Esophagus clinic -appreciate applications packager to discuss diet education ?? #13 Elevated [...] care was discussed with Dr. Lozoya, HIM product/industry consultant. Counseling was provided nyay-ug-nymf at bedside regarding the plan of care as stated above. I personally spent over half of a total 35 minutes in counseling and coordination of care as documented above. Maria G Adame P.A.-C., M.S. [facility] 1 - [phone] [place] M.B.BBaileyS. - 12/06/2021 3:58 PM [...] Please page the GI consult pager at [phone] with any further questions or concerns. Evette [...] feel free to discusswith Dr. Yamileth Kennedy, in flight refueling system repairer and IR. -- As patient NPO, please [...] or concerns, please page the Nephrology A BRIDGE WORKER APPRENTICE/PA pager, [phone] or you may text page by clicking here. Associated attestation - Yamileth Kennedy M.D., Ph.D. - 12/06/2021 6:01 PM CDT I reviewed the case with the resident/fellow but did not see the patient. I agree with the assessment and plan as documented in the BRIDGE WORKER APPRENTICE's note. Jaqueline Fontanez M.D. - 12/06/2021 10:32 [...] effusion. Images were saved and uploaded to [facility]. DIAGNOSTICS I have reviewed relevant laboratory, imaging, [...] pleural fluid when he was admitted to [facility] for heart failure (EF 25-30%). [...] was seen and discussed with the supervising product/industry consultant, Dr. Gonzales. We will continue to follow. Please contact [phone] with questions or concerns. Jaqueline Moseley M.D. [facility] Fellow Associated attestation - Chely Gonzales [...] 5.) Constipation: Miralax daily Soo Plaza, PharmD [phone] Simran Helm P.A.-C., M.S. - 12/06/2021 7:44 AM CDT [facility] Medicine 8 ([facility]) Progress Notes SUBJECTIVE The [facility] Medicine 8 ([facility]) service evaluated Mr. Castro this morning [...] - 12/06/2165812/06/21 07 - 12/07/21 0659 Shift 1371-3472 3271-5161 9846-3505 24 Hour Total 6161-6369 0724-9412 7682-2440 24 Hour Total INTAKE P.O. 180 240 [...] CAM negative for acute delirium. 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 ASSESSMENT / PLAN Mr. Castro is hospitalized on [place] [address] ([facility]) for evaluation and management of Empyema Pleural(HCC). He was brought to the ED after he was unable to stand to get out of his car due to acute onset of lower extremity weakness. Additional workup in the ED concerning for recurrent pleural effusions/empyema as below. He is admitted to [place] [address] for further evaluation. #1 Weakness, generalized Improved [...] plan of care detailed above. I provided xmct-fg-vdgh counseling at bedside regarding the plan of care. The patient acknowledged an understanding and agreed with the plan of care listed above. I personally spent over half of a total 40 minutes in counseling and coordination of care as documented above. Simran Helm M.S., PA-C Pager: [phone] Evette Pham APRN, C.N.P., D.N.P. - 12/05/2021 [...] or concerns, please page the Nephrology A BRIDGE WORKER APPRENTICE/PA pager, [phone] or you may text page by clicking [...] effusion. Images were saved and uploaded to [facility]. DIAGNOSTICS I have reviewed relevant laboratory, imaging, [...] pleural fluid when he was admitted to [facility] for heart failure (EF 25-30%). [...] was seen and discussed with the supervising product/industry consultant, Dr. Means. We will continue tofollow. Please contact [phone] with questions or concerns. Avis Dobson. [facility] Fellow Associated attestation - Will Means [...] P.A.-C., M.S. - 12/05/2021 6:58 AM CDT [facility] Medicine 8 ([facility]) Progress Notes SUBJECTIVE The [facility] Medicine 8 ([facility]) service evaluated Mr. Castro this morning [...] 12/04/21699 - 12/05/2165812/05/21699 - 12/06/21 0659 Shift 4550-2303 6032-8126 7818-6943 24 Hour Total 5577-9646 6882-6075 9999-5195 24 Hour Total INTAKE P.O. 210 210 Other 10 0 10 Intermittent Medications 50 50 50 150 Shift Total(mL/kg) 270(3.4) 50(0.6) 50(0.6) 370(4.7) OUTPUT Urine(mL/kg/hr) 350(0.6) 275 625 Urine 350 275 625 Chest Tube 160 60 220 Dialysis 4 80 84 Shift Total(mL/kg) 514(6.5) 415(5.3) 929(11.8) NET 270 464 -365 -739 Weight (kg) 78.6 78.6 78.6 78.6 78.6 [...] CAM negative for acute delirium. 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 ASSESSMENT / PLAN Mr. Castro is hospitalized on [place] [address] ([facility]) for evaluation and management of Empyema Pleural(HCC). He was brought to the ED after he was unable to stand to get out of his car due to acute onset of lower extremity weakness. Additional workup in the ED concerning for recurrent pleural effusions/empyema as below. He is admitted to [place] [address] for further evaluation. #1 Weakness, generalized Improved [...] plan of care detailed above. I provided njnp-xv-ciso counseling at bedside regarding the plan of care. The patient acknowledged an understanding and agreed with the plan of care listed above. I personally spent over half of a total 40 minutes in counseling and coordination of care as documented above. Simran Helm M.S., PA-C Pager: [phone] Jaqueline Fontanez M.D. - 12/04/2021 3:19 PM CDT Images from the original note were not included. Pleural Service/Interventional Pulmonology Service Consult Note SUBJECTIVE Referral Source: Jamal Andujar, DWIGTH, C.N.P. Reason for Consult: Suspected empyema Interval [...] effusion. Images were saved and uploaded to [facility]. DIAGNOSTICS I have reviewed relevant laboratory, imaging, [...] pleural fluid when he was admitted to [facility] for heart failure (EF 25-30%). [...] was seen and discussed with the supervising product/industry consultant, Dr. Means. We will continue tofollow. Please contact [phone] with questions or concerns. Jaqueline Moseley M.D. [facility] Fellow Yamileth Kennedy M.D., Ph.D. - [...] or concerns, please page the Nephrology A BRIDGE WORKER APPRENTICE/PA pager, [phone] or you may text page by clicking here. Will Means M.D. - 12/04/2021 1:46 PM CDT Narrative summary: We visited with this patient for long time at the bedside. We reviewed his CT scan and his prior records including initial consult from Dr. Jimenez. I discussed the case with nephrology plib-xe-ilrf. He is an 81M never smoker who is retired from [employer]. He has the prior history of lymphocytic [...] P.A.-C., M.S. - 12/04/2021 7:59 AM CDT [facility] Medicine 8 ([facility]) Progress Notes SUBJECTIVE The [facility] Medicine 8 ([facility]) service evaluated Mr. Castro this morning [...] - 12/04/21 0612/04/216[address] - 12/05/21 0659 Shift 9279-7387 6671-0701 0885-0948 24 Hour Total 0374-2487 9103-0233 2685-7309 24 Hour Total INTAKE P.O. 240 400 [...] lower extremities bilaterally. Coordination intact w ith yyecdf-rc-tqrv testing, rapid alternating hand movements. Negative pronator drift. Mental: Mood and affect congruent. Alert and oriented. Attention intact. No evidence of disorganizedthinking. RASS 0. 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 DIAGNOSTICS I personally reviewed labs, imaging, EMR. ASSESSMENT / PLAN Mr. Castro is hospitalized on [place] [address] ([facility]) for evaluation and management of Empyema Pleural(HCC). He was brought to the ED after he was unable to stand to get out of his car due to acute onset of lower extremity weakness. Additional workup in the ED concerning for recurrent pleural effusions/empyema as below. He is admitted to [place] [address] for further evaluation. #1 Weakness, generalized He [...] plan of care detailed above. I provided zgfn-nl-suxw counseling at bedside regarding the plan of care. The patient acknowledged an understanding and agreed with the plan of care listed above. I personally spent over half of a total 40 minutes in counseling and coordination of care as documented above. Simran Helm M.S., PA-C Pager: [phone] Jaqueline Fontanez M.D. - 12/03/2021 1:21 PM CDT Images from the original note were not included. Pleural Service/Interventional Pulmonology Service Consult Note SUBJECTIVE Referral Source: Jamal Andujar, HOST HOSTESS, C.N.P. Reason for Consult: Suspected empyema Interval [...] effusion. Images were saved and uploaded to [facility]. DIAGNOSTICS I have reviewed relevant laboratory, imaging, [...] pleural fluid when he was admitted to [facility] for heart failure (EF 25-30%). [...] was seen and discussed with the supervising product/industry consultant, Dr. Jimenez. We will continue to follow. Please contact [phone] with questions or concerns. Jaqueline Moseley M.D. [facility] Fellow Associated attestation - Will Means [...] 12/03/2021 12:25 PM CDT T Medicine 8 ([facility]) Progress Notes SUBJECTIVE The [facility] Medicine 8 ([facility]) service evaluated Mr. Castro this morning [...] 12/02/21699 - 12/03/2165812/03/21699 - 12/04/21 0659 Shift 7861-4500 6213-7175 8048-2228 24 Hour Total 1787-2783 3929-4657 1054-4125 24 Hour Total INTAKE P.O. 236 360 [...] CAM negative for acute delirium. 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 DIAGNOSTICS I personally reviewed labs, imaging, EMR. ASSESSMENT / PLAN Mr. Castro is hospitalized on [place] [address] ([facility]) for evaluation and management of Empyema Pleural(HCC). He was brought to the ED after he was unable to stand to get out of his car due to acute onset of lower extremity weakness. This is since resolved. Additional workup in the ED concerning for recurrent pleural effusions/empyema as below. He is admitted to [place] [address] for further evaluation. #1 Weakness, generalized--improving In [...] plan of care detailed above. I provided gvgp-eu-ybaz counseling at bedside regarding the plan of care. The patient acknowledged an understanding and agreed with the plan of care listed above. I personally spent over half of a total 40 minutes in counseling and coordination of care as documented above. Simran Helm M.S., PA-C Pager: [phone] Diana Reed, ALONAN, LD - 12/03/2021 11:18 [...] achalasia which patient reported has been a jail issue. He stated he usually eats throughout [...] 1900 calories/day Method to Estimate Energy Needs: Marc-Warren (Basal + 20%) Weight Used for Equation [...] about patient's nutritional care please contact pager [phone] on weekdays or [phone] on weekends/holidays. Kasia Narayanan Pharm.D., R.Ph. - [...] regimen intensified today Kasia Narayanan PharmD, BCPS [phone] Evette Pham APRN, C.N.P., D.N.P. - 12/03/2021 [...] lab and they are looking into the syom-sj-zohdsii on the pleural fluidglucose drawn > 24 [...] or concerns, please page the Nephrology A BRIDGE WORKER APPRENTICE/PA pager, [phone] or you may text page by clicking [...] 2021 1:23 PM CDT T Medicine 8 ([facility]) Progress Notes SUBJECTIVE The T Medicine 8 ([facility]) service evaluated Mr. Castro this morning [...] Admitted) 12/02/21 0700 - 12/03/21 0659 Shift 8193-2252 9749-0125 9317-9989 24 Hour Total 0450-6083 5662-7179 1703-4586 24 Hour Total INTAKE Shift Total(mL/kg) OUTPUT [...] CAM negative for acute delirium. 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 DIAGNOSTICS I personally reviewed labs, imaging, EMR. ASSESSMENT / PLAN Mr. Castro is hospitalized on [place] [address] ([facility]) for evaluation and management of Empyema Pleural(HCC). He was brought to the ED after he was unable to stand to get out of his car due to acute onset of lower extremity weakness. This is since resolved. Additional workup in the ED concerning for recurrent pleural effusions/empyema as below. He is admitted to [place] [address] for further evaluation. #1 Weakness, generalized--improving He [...] plan of care detailed above. I provided gxmj-ny-etbz counseling at bedside regarding the plan of care. The patient acknowledged an understanding and agreed with the plan of care listed above. I personally spent over half of a total 40 minutes in counseling and coordination of care as documented above. Simran Helm M.S., PA-C Pager: [phone] Kasia Ridley, PharmBaileyD., R.Ph. - 2021 9:48 [...] from the hospital. Kasia Ridley Pharm.D., R.Ph. [phone] documented in this encounter H&P Notes Jamal Andujar, DWIGHT, C.N.P. - 2021 1:00 AM CDT [facility] Medicine 8 ([facility]) Admission Note SUBJECTIVE CHIEF COMPLAINT Weakness [...] He sat in the recliner andwatched The adFreeq Game and after noted he was still very weak, thus took him to [facility]. At [facility], we do not have much info, as they are not in care everywhere; he reports he had labs and a CT, was told he had fluid around his lungs, thus he was given Zosyn and Clindamycin, reports around 1999 and 2200 roughly. Reports [facility] was working on trying to send him out; and eventually he was transitioned to [facility] here and directly admitted. In meeting Mr. [...] in hospital. He has no other complaints. [facility] gave him all his evening med's. [...] I have independently reviewed the CT/CXR from [facility], showing Empyema with air, in Qreads. ASSESSMENT [...] and 2200. -Ordered CT/CXR for interpretation by [place]/here. -Ordered CMP, Mg, Phos, CBCdiff, lactate, procalcitonin, [...] and walk) Disposition: Home Counseling was provided rkzf-br-pwxl at bedside regarding the plan of care [...] fellow participated in the procedure, and the product/industry consultant was present for the entire procedure. [...] right posterior Intercostal space: 9th Puncture method: rpkr-ltm-bjkoez catheter Number of attempts: 1 Drainage characteristics: [...] fellow participated in the procedure, and the product/industry consultant was present for the entire procedure. Associated attestation - Cj Jimenez M.D. - 2021 2:42 PM CDT I was present for the entirety of the procedure(s). documented in this encounter Consult Notes Aleida Flores M.D. - 12/03/2021 3:26 PM CDT INPATIENT SUPERVISORY CONSULT NOTE Date of Consultation: 12/03/2021 Requesting Service: [facility] Medicine 8 ([facility]) This is a supervisory note for [...] Heller myotomy locally with Dr. Awan at [place]. The think that this was at least [...] of? Esophageal perforation Briefly, he is from [place] Lives at home Functionally very active [...] Please page the GI consult pager at [phone] with any questions or concerns. Ani Tariq PBaileyT., D.P.T. - 12/03/2021 12:51 PM CDT Physical Therapy Inpatient Evaluation/Treatment SUBJECTIVE Patient's Name: David Castro Referring/Attending Provider: John Paul Dockery M.D. 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 Basic Mobility (V.2) How much help [...] steps with a railing?: A Little -[facility] Basic Mobility (V.2) Raw Score: 22 -[facility] Basic Mobility (V.2) Standardized Score: 47.4 Interpretation: Clinicians answer the -[facility] Inpatient Short Form based on observed [...] admitted today with complaints of weakness for exthcpecsp65 hours. He has a pertinent past medical [...] proceeded with placement of a right 12 Maori locking loop thoracostomy tube. Post placement chest [...] 14 Ht 167.6 cm Wt 79.3 kg TeH042% BMI 28.22 kg/m?? General: pleasant, lying in bed with family at the side Pulmonary: no audible breathing, no increased work of breathing Bedside ultrasound demonstrated a moderate right pleural effusion with septations and no left pleural effusion. Images were saved and uploaded to [employer]. Bedside ultrasound demonstrating placement of guidewire for pigtail DIAGNOSTICS I have reviewed relevant laboratory, imaging, and other diagnostics as applicable to this consultation. Predatory Animal Trapper CXR on CT Chest 12/01/21 compared to [...] pleural fluid when he was admitted to [facility] for heart failure (EF 25-30%) [...] was seen and discussed with the supervising product/industry consultant, Dr. Jimenez. We will continue to follow. Please contact [phone] with questions or concerns. Jaqueline Moseley M.D. [facility] Fellow Viki Waldrop O.T., O.TCodie - 2021 1:50 PM CDT Occupational Therapy Dysphagia Evaluation/Treatment SUBJECTIVE Patient's Name: David Bello Gustaboallie Referring/Attending Provider: John Paul Dockery M.D. 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 Kennedy, Nephrology A product/industry consultant For questions or concerns, please page the Nephrology A BRIDGE WORKER APPRENTICE/PA pager ([phone]). Associated attestation - Yamileth Kennedy M.D., Ph.D. [...] completed post removal. Plan to discharge [facility] tomorrow. Problem: ALTERED NUTRIENT INTAKE - ADULT Goal: Nutrient intake appropriate for improving, restoring or maintaining nutritional needs Outcome: Progressing Note: Gastroenterology Physician able to meet with patient and at [...] Pigtail chest tube placed and set to -[id number] continuous suction. IV Zosyn administered. Plan for [...] - 2021 12:26 PM CDT Mr. David Casrto is a 81 y.o. male who presented to the [facility] ED with a chief complaint of [...] both lower legs. He initially presented to [facility], then transitioned to [facility] for further care. Identified on [facility]formed at [facility] to have a complex hydropneumothorax with scattered [...] all are in the outpatients) results section. NE PLEURA DRAIN PERC Routine 2021 6:25 Empyema Pleural R esults for W IMG GUID PM CDT (HCC) this procedure Effusion Pleural are in the Hydropneumothora results x section. CONTINUOUS CYCLING Routine 2021 1:17 PERITONEAL DIALYSIS PM CDT (CCPD) AMYLASE, BF Routine 2021 10:04 Results for AM CDT this procedure are in the results section. NE THORACENTESIS Routine 2021 9:47 Effusion Pleural Resu lts for PLEURA W IMG AM CDT this procedure are in the results section. BROAD RANGE BACTERIA Timed 2021 9:36 Resu lts for PCR AND SEQUENCING AM CDT this proc edure are in the results section. CYTOLOGY NON-SALES ENABLEMENT CONSULTANT Timed 2021 9:36 Results for AM CDT [...] 12/08/2021 DTL Black/ mL/min/BSA 10:28 AM CDT Hong [place]er Comment: ----ADDITIONAL INFORMATION---- Estimated GFR calculated using [...] City/State/ZIP Code Phon e Number [facility] - [address] [place], [place] [address] [facility] [place] [address] Laboratories-[address] (ABNORMAL) CBC without Differential (12/08/2021 9:26 AM CDT) [facility] Method Time Signature Hemoglobin 9.9 (L) [...] Organization Address City/State/ZIP Code Phon e Number [facility] - [address] [place] [address] [facility] [place] [address] Laboratories-[address] (ABNORMAL) Prothrombin Time (PT) (12/08/2021 9:26 AM CDT) [facility] Method Time Signature Prothrombin 16.5 (H) 9.4 [...] City/State/ZIP Code Phon e Number [facility] - [address] [place], [place] [address] [facility] [place] [address] Laboratories-[facility] [address] (ABNORMAL) Basic [...] 12/07/2021 DTL Black/ mL/min/BSA 1:56 PM CDT [place]er Comment: ----ADDITIONAL INFORMATION---- Estimated GFR calculated using [...] M.S. LAB BLOOD ADD-ON Performing Organization Address City/[facility] Phon e Number [facility] - [address] [place], [place] [address] [place], [place] [id number] [place] [address] (ABNORMAL) Parathyroid Hormone (PTH) (12/07/2021 12:38 PM [...] C.N.PBailey LAB BLOOD ADD-ON Performing Organization Address City/[facility] Phon e Number [facility] - [address] [place], [place] [address] [place] [address] (ABNORMAL) Hepatic Function Panel (12/07/2021 12:38 [...] City/State/ZIP Code Phon e Number [facility] - [address] [place], [place] [address] [facility] [place] [address] Laboratories-[facility] [address] DX Chest [...] aorta. Jaqueline Moseley M.D. IMG DIAGNOSTIC IMAGING NE OCEDURES (ABNORMAL) Prothrombin Time (PT) (12/07/2021 8:06 AM CDT) [facility] Method Time Signature Prothrombin 16.8 (H) [...] City/State/ZIP Code Phon e Number [facility] - [address] [place] [address] [facility] [place] [address] Laboratories-[facility] [address] [facility] Esophagram Single Contrast (12/06/2021 2:03 PM [...] SINGLE CONTRAST COMPARISON: ??Esophagram 09/17/2018. FINDINGS: ??Preprocedural head porter baggage image de monstrates partially visualized right pleural [...] SINGLE CONTRAST COMPARISON: Esophagram 09/17/2018. FINDINGS: Preprocedural head porter baggage image demo nstrates partially visualized right pleural [...] 12/06/2021 DTL Black/ mL/min/BSA 5:40 AM CDT [place]er Comment: ----ADDITIONAL INFORMATION---- Estimated GFR calculated using [...] City/State/ZIP Code Phon e Number [facility] - [facility] [address] [place], [place] [address] [facility] [place] [address] Laboratories-[facility] [address] [facility] (ABNORMAL) Prothrombin Time (PT) (12/06/2021 4:17 AM CDT) [facility] gist Method Time Signature Prothrombin 22.9 (H) [...] AM 12/07/19 4:42 Venous) CDT AM CDT Sirman Helm P.A.-C. MBaileyS. LAB BLOOD ADD-ON Performing Organization Address [facility] Phon e Number [facility] - [address] [place], [place] [address] [place] [address] Laboratories-[address] Broad Range Bacteria PCR+Sequencing (12/05/2021 10:03 AM CDT) Component Value Ref Test Analysis Performed At Patholo gist Range Method Time Signature Broad Range No bacterial DNA detected. 12/07/2021 DTL Bacteria This test was developed and its performance characteri stics 2:17 PM CDT PCR+Sequencin determined by [facility] in a manner consistent with g CLIA [...] - GENERAL O RDERABLES Performing Organization Address [facility] Phon e Number [facility] - [address] [place] [address] 05 [place] [address] Laboratories-[address] (ABNORMAL) Renal Function Panel (12/05/2021 8:34 [...] 12/05/2021 DTL Black/ mL/min/BSA 9:25 AM CDT [place]er Comment: ----ADDITIONAL INFORMATION---- Estimated GFR calculated using [...] City/State/ZIP Code Phon e Number [facility] - [facility] [address] [place], [place] [address] [facility] [place] [address] Laboratories-[facility] [address] [facility] Connective Tissue Diseases Taney (12/05/2021 8:34 AM CDT) P athologist Signature Antinuclear Ab, 0.4 <=1.0 [facility]12 PM CDT U Comment: ----ADDITIONAL INFORMATION---- Method: Enzyme-linked immunoassay using HEp-2 nuclear extract supplemented with purified antig ens. Cyclic Citrullinated <15.6 <20.0 (Negative) U 12/06/2021 10:49 AM [facility] Peptide Ab, S CDT Interpretation SEE COMMENT 12/06/2021 1:12 PM [facility] CDT Comment: Tests for antibodies to dsDNA and SHREYAS an tigens are not performed automatically unless the TANVIR r esult is > or = 3.0 U. ??Studies performed at [facility] indicate that positive TANVIR results <3.0 U are rarely a ccompanied by positive second order tests. Specimen Anatomical Collection Method Collection Time Receive d Time (Source) Location / / Volume Laterality Blood (Blood, 12/05/2021 8:34 AM 12/07/19 7:51 Venous) CDT AM CDT Simran Helm P.A.-C., M.S. LAB BLOOD ADD-ON Performing Organization Address City/[facility] Phon e Number [facility] [place]JIA [place], [place] [address] [place] [address] Laboratory Medicine and Pathology [address] [place] [address] Dr. MEJIA (ABNORMAL) Prothrombin Time (PT) (12/05/2021 8:34 AM CDT) [facility] Method Time Signature Prothrombin 29.4 (H) [...] M.S. LAB BLOOD ADD-ON Performing Organization Address City/State/[facility] Phon e Number [facility] - [address] [place], [place] [address] [facility] [place] [address] Laboratories-[facility] [address] DX [...] City/State/ZIP Code Phon e Number [facility] - [address] [place], [place] [address] [facility] [place] [address] Laboratories-[facility] [address] [facility] (ABNORMAL) Renal Function Panel (12/04/2021 [...] 12/04/2021 DTL Black/ mL/min/BSA 8:38 AM CDT [place]er Comment: ----ADDITIONAL INFORMATION---- Estimated GFR calculated using [...] City/State/ZIP Code Phon e Number [facility] - [address] [place], [place] [address] [facility] [place] [address] Laboratories-[facility] [address] (ABNORMAL) Prothrombin Time (PT) (12/04/2021 7:19 AM CDT) [facility] gist Method Time Signature Prothrombin 35.4 (H) [...] City/State/ZIP Code Phon e Number [facility] - [address] [place], [place] [address] [facility] [place] [address] Laboratories-[facility] [address] Chest [...] 4, image 100 and is similar to [facility] comparison exam. Follow-up imaging may be helpful [...] CBC without Differential (12/03/2021 9:26 AM CDT) [facility] Method Time Signature Hemoglobin 10.9 (L) [...] M.S. LAB BLOOD ADD-ON Performing Organization Address City/State/[facility] Code Phon e Number [facility] - [address] [place] [address] [facility] [place] [address] Laboratories-[facility] [address] [facility] (ABNORMAL) Electrophoresis, Protein (12/03/2021 8:21 AM CDT) [facility] gist Method Time Signature Total Protein, 5.8 [...] City/State/ZIP Code Phon e Number [facility] [address] [place], [place] [address] [place] [address] [place] [address] Laboratory Medicine and Pathology [address] [...] 12/03/2021 DTL Black/ mL/min/BSA 9:32 AM CDT [place]er Comment: ----ADDITIONAL INFORMATION---- Estimated GFR calculated using [...] City/State/ZIP Code Phon e Number [facility] - [address] [place], [place] [address] [facility] [place] [address] Laboratories-[facility] [address] [facility] (ABNORMAL) CBC with Differential, Blood (12/03/2021 8:21 AM CDT) [facility] Method Time Signature Hemoglobin 10.2 (L) [...] M.S. LAB BLOOD ADD-ON Performing Organization Address City/[facility] Phon e Number [facility] - [address] [place], [place] [address] 05 [place] [address] Laboratories-[facility] 200 [facility] (ABNORMAL) Prothrombin Time (PT) (12/03/2021 8:21 AM CDT) [facility] gist Method Time Signature Prothrombin 40.5 (H) [...] M.S. LAB BLOOD ADD-ON Performing Organization Address City/[facility] Code Phon e Number [facility] - [address] [place] [address] [facility] [place] [address] Laboratories-[address] DX Chest Portable 1 View (12/03/2021 [...] calcification. Jaqueline Moseley M.D. IMMike DIAGNOSTIC IMAGING NE OCEDURES DX Chest Portable 1 View (2021 [...] view. Jaqueline Moseley M.D. IMG DIAGNOSTIC IMAGING NE OCEDURES NE PLEURA DRAIN PERC W IMG GUID (2021 [...] fellow participated in the procedure, and the product/industry consultant was present for the entire procedure. [...] atio <1.0. All other fluids refer to [email or web address] (now [email or web address] for further inter pretive information. This test has been modified from the man estherurer's instructions. Its performance characteri stics were determined by [facility] in a manner consistent wi CLIA requirements. [...] City/State/ZIP Code Phon e Number [facility] - [address] [place], [place] [address] [facility] [place] [address] Laboratories-[facility] [address] NE THORACENTESIS PLEURA W IMG (2021 9:47 AM CDT) Narrative Cj Jimenez M.D. - 2021 9:47 A M CDT Jaqueline Fontanez M.D. ? 2021 ??9:49 AM Thoracentesis Date/Time: 2021 9:47 AM Performed by: Jaqueline Fontanez M.D. Authorized by: Jaqueline Fontanez M.D. Care team members present 1. Cj Jimenez M.D. PROCEDURE DETAILS Patient position: sitting Location: right posterior Intercostal space: 9th Puncture method: kzok-vwd-[id number] cathete r Number of attempts: 1 Drainage [...] fellow participated in the procedure, and the product/industry consultant was present for the entire procedure. Jaqueline Moseley M.D. PROCEDURE/MINOR SURGICAL ORDERABLES Broad Range Bacteria PCR+Sequencing (2021 9:36 AM CDT) Component Value Ref Test Analysis Performed At [facility] Range Method Time Signature Broad Range No bacterial DNA detected. 12/07/2021 DTL Bacteria This test was developed and its performance characteri stics 2:15 PM CDT PCR+Sequencin determined by [facility] in a manner consistent with g CLIA requirements. This test has not been cleared or approved by the U.S. Food and Drug Administration. Specimen Anatomical Collection Method Collection Time Receive d Time (Source) Location / / Volume Laterality Pleural Fluid, 2021 9:36 AM 022 Right CDT 11:28 AM CDT Comment: Specimen Source Site: Fluid Narrative [facility] - [facility] - 12/07/2021 2:15 PM CDT Bacterial Culture: Received Bactec aerob ic and Bactec anaerobic bottles Cj Jimenez M.D. LAB MICROBIOLOGY - GENERAL O RDERABLES Performing Organization Address City/State/ZIP Code Phon e Number [facility] - [facility] [address] [place], [place] [address] [facility] [place] [address] Laboratories-[facility] [address] Glucose, Body [...] of infection. All other fluids refer to www.Go Pool [email or web address] for further inter pretive information. This test has been modified from the man ufacturer's instructions. Its performance characteri stics were determined by [facility] in a manner co nsistent with CLIA [...] AND STOOLS O [place] Performing Organization Address City/[facility]/ZIP [facility] Phon e Number [facility] - [address] [place], [place] [address] [place] [address] pH, Pleural Fluid (2021 9:36 AM CDT) [facility] Method Time Signature pH, Pleural 7.27 Not Applicable 2021 [facility] Fluid pH 9:59 AM CDT Comment: Clinical [...] AND STOOLS O [place] Performing Organization Address City/[facility] Phon e Number [facility] - [address] [place] [address] [place] [address] [facility]-[address] Fungal Culture, Routine (2021 9:36 AM CDT) [facility] Method Time Signature Fungal No growth 12/26/2021 DTL Culture, after 24 1:01 PM CDT Routine days of incubation. Specimen Anatomical Collection Method Collection Time Receive d Time (Source) Location / / Volume Laterality Fluid (Pleural 2021 9:36 AM 022 Fluid, Right) CDT 11:28 AM CDT Comment: Specimen Source Site: Fluid Narrative [facility] - [facility] - 12/26/2021 1:01 PM CDT Bacterial Culture: Received Bactec aerob ic and Bactec anaerobic bottles Cj Jimenez M.D. LAB MICROBIOLOGY - GENERAL O [place] Performing Organization Address City/[facility]/ZIP [facility] Phon e Number [facility] - [address] [place], [place] [address] [place] [address] Laboratories-[facility] [address] [facility] Fungal Smear (2021 9:36 AM CDT) P athologist Signature Fungal Smear Negative. 2021 DTL 1:56 PM CDT Specimen Anatomical Collection Method Collection Time Receive d Time (Source) Location / / Volume Laterality Fluid (Pleural 2021 9:36 AM 022 Fluid, Right) CDT 11:28 AM CDT Comment: Specimen Source Site: Fluid Narrative [facility] - [facility] - 2021 1:56 PM CDT Bacterial Culture: Received Bactec aerob ic and Bactec anaerobic bottles Cj Jimenez M.D. LAB MICROBIOLOGY - GENERAL O RDERABLES Performing Organization Address City/State/ZIP Code Phon e Number [facility] - [address] [place] [address] [address] [facility] [place] [address] [facility] 200 [facility] Cytology Non-SALES ENABLEMENT CONSULTANT (2021 9:36 AM CDT) Component Value Ref [...] LAB SURG PATH ORDERABLES Performing Organization Address City/[facility] Phon e Number [facility] - [address] [place] [address] Laboratories-[address] Cell Count and Differential, Body Fluid (2021 9:36 AM CDT) [facility] gist Method Time Signature Fluid Type Right [...] Its performance characteri stics were determined by [facility] in a manner co nsistent with CLIA [...] AND STOOLS O RDERABLES Performing Organization Address [facility] Phon e Number [facility] - [address] [place] [address] [place] [address] [facility] [address] [facility] Bacterial Culture, Aerobic + Susc (2021 9:36 AM CDT) [facility] Method Time Signature Bacterial No growth 12/07/2021 DTL Culture, after 5 8:50 AM CDT Aerobic + Susc days of incubation. Specimen Anatomical Collection Method Collection Time Receive d Time (Source) Location / / Volume Laterality Fluid (Pleural 2021 9:36 AM 022 Fluid, Right) CDT 11:28 AM CDT Comment: Specimen Source Site: Fluid Narrative [facility] - 12/07/2021 8:50 AM CDT Bacterial Culture: Received Bactec aerob ic and Bactec anaerobic bottles Cj Jimenez M.D. LAB MICROBIOLOGY - GENERAL O [place] Performing Organization Address City/[facility]/ZIP Code Phon e Number [facility] [address] [place], [place] [address] [facility] [place], [place] [address] [place] [address] [address] [facility] Gram Stain (2021 9:36 AM CDT) [facility] Method Time Signature Gram Stain No organisms seen. 2021 DTL White blood cells present. 12:20 PM CDT Specimen Anatomical Collection Method Collection Time Receive d Time (Source) Location / / Volume Laterality Fluid (Pleural 2021 9:36 AM 022 Fluid, Right) CDT 11:28 AM CDT Comment: Specimen Source Site: Fluid Narrative [facility] - 2021 12:20 PM CDT Bacterial Culture: Received Bactec aerob ic and Bactec anaerobic bottles Cj Jimenez M.D. LAB MICROBIOLOGY - GENERAL O [place] Performing Organization Address City/State/ZIP Code Phon e Number [facility] [address] [place], [place] [address] [facility] [place], [place] [address] [place] [address] Protein, Total, Body Fluid (2021 9:36 AM [...] ical findings. All other fluids refer to www.[employer] Servicess.com for further inter pretive information. This test has been modified from the printed circuit board assembly repairer's instructions. Its perform ance characteristics were determined by [facility] in a manner consistent with CLIA require [...] City/State/ZIP Code Phon e Number [facility] - [address] [place], [place] [address] [facility] [place] [address] Laboratories-[facility] [address] Lactate Dehydrogenase (LD), Body Fluid (2021 9:36 AM CDT) [facility] Method Time Signature Lactate 343 See [...] Its performance characteristics were det ermined by [facility] in a manner consistent with CLIA requirements [...] City/State/ZIP Code Phon e Number [facility] - [address] [place], [place] [address] [facility] [place] [address] Laboratories-[facility] [address] [facility] Interpretation of Outside DX Chest (2021 2:07 [...] Mitral annular ossifications. Eso phageal hiatal hernia. Jamla Andujar APRN, C.N.P. IMG DIAGNOSTIC IMAGING PROC [...] Prothrombin 33.3 (H) 9.4 - 12.5 2021 [facility] Time, P sec 1:15 AM CDT INR 3.0 0.9 - 1.1 2021 [facility] 1:15 AM CDT Comment: ----ADDITIONAL INFORMATION---- Standard intensity warfarin therapeutic range: 2.0 to 3.0 ?? High intensity warfarin therapeutic rang e: 2.5 to 3.5 Specimen Anatomical Collection Method Collection Time Receive d Time (Source) Location / / Volume Laterality Blood (Blood, 2021 1:01 AM 12/03/19 1:09 Venous) CDT AM CDT Jamal Andujar APRN, C.N.P. LAB BLOOD ADD-ON Performing Organization Address City/State/[facility] Code Phon e Number [facility] - [address] [place] [address] 05 [place] [address] Laboratories-[facility] 200 [facility] (ABNORMAL) Procalcitonin (2021 1:01 AM CDT) P athologist Signature Procalcitonin, 0.18 (H) <=0.08 2021 DTL S ng/mL 2:04 AM CDT Specimen Anatomical Collection Method Collection Time Receive d Time (Source) Location / / Volume Laterality Blood (Blood, 2021 1:01 AM 12/03/19 1:35 Venous) CDT AM CDT Jamal Andujar APRN, Pablo.N.P. LAB BLOOD ADD-ON Performing Organization Address City/[facility] Phon e Number [facility] - [address] [place], [place] [address] [place] [id number] [place] [address] [address] [facility] Lactate (2021 1:01 AM CDT) athologist Signature Lactate, P 1.1 0.5 - 2.2 2021 DTL mmol/L 1:48 AM CDT Specimen Anatomical Collection Method Collection Time Receive d Time (Source) Location / / Volume Laterality Blood (Blood, 2021 1:01 AM 12/03/19 1:35 Venous) CDT AM CDT Jamal Andujar APRN, C.N.P. LAB BLOOD NON ADD-ON Performing Organization Address City/[facility] Phon e Number [facility] - [address] [place], [place] [address] [place], [place] [phone] [place] [address] 200 [facility] Phosphorus Inorganic (2021 1:01 AM CDT) athologist [...] City/State/ZIP Code Phon e Number [facility] - [address] [place], [place] [address] [place], [place] [address] [place] [address] Magnesium (2021 1:01 AM CDT) athologist Signature Magnesium, S 1.8 1.7 - 2.3 2021 DTL mg/dL 2:04 AM CDT Specimen Anatomical Collection Method Collection Time Receive d Time (Source) Location / / Volume Laterality Blood (Blood, 2021 1:01 AM 12/03/19 1:35 Venous) CDT AM CDT Natalie Strong APRNNDenisse LAB BLOOD ADD-ON Performing Organization Address City/State/ZIP Code Phon e Number [facility] - [address] [place], [place] [address] [facility] [place] [address] [facility] [facility] [address] (ABNORMAL) [...] 2021 DTL Black/ mL/min/BSA 1:58 AM CDT Hong [place]er Comment: ----ADDITIONAL INFORMATION---- Estimated GFR calculated using [...] C.N.P. LAB BLOOD ADD-ON Performing Organization Address City/State/[facility] Code Phon e Number [facility] - 200 [place], [place] [address] [facility] [place] [address] Laboratories-[facility] 200 [facility] (ABNORMAL) CBC with Differential, Blood (2021 1:01 AM CDT) [facility] gist Method Time Signature Hemoglobin 10.1 (L) [...] C.N.P. LAB BLOOD ADD-ON Performing Organization Address City/[facility] Code Phon e Number [facility] [address] (ABNORMAL) GGT (Gamma-Glutamyltransferase) (2021 12:57 AM CDT) Component Value Ref Test Analysis Performed At [facility]ist Range Method Time Signature Gamma 169 (H) 8 - 61 2021 DTL Glutamyltransferase U/L 2:20 PM CDT (GGT), S Specimen Anatomical Collection Method Collection Time Receive d Time (Source) Location / / Volume Laterality Blood (Blood, 2021 12:57 2021 1:48 Venous) AM CDT PM CDT Simran Helm P.A.-C., M.S. LAB BLOOD ADD-ON Performing Organization Address City/[facility] Phon e Number [address] DTL [address] documented in this encounter Visit Diagnoses [...] 0900 (Dose Auto Held - Provider: Yvette Chrery APRN, C.N.P.)1400 (Dose Auto Held - Provider: [...] or split tablet. May crush using the QXL ricardo plcCrush system. warfarin tablet 1.5 mg (COUMADIN) (COMPLETED) 171 (Given - Provider: Yadi Lewis R.N.) 1.5 mg, oral, Once, On Mon12/07/21 at 1700, For 1 dose PRN Medication Order 12/06/2021 12/07/2021 12/08/2021 calcium carbonate chewable tablet 400 mg of calcium (TUMS) 400 mg of calcium, oral, Every 2 hour NE N, heartburn, indigestion, Starting on Mon12/02/21 at 0059, Doses listed are in mg of elemental calcium. Take with food. 500 mg calcium carbonate contains 200 mg of elemental calcium. iohexoL 300 mg iodine/mL solution (OMNIPAQUE) (COMPLET ED) 1402 (Given - Provider: Glenn Spencer M.D.) Code/trauma/sedation medication, Starting on Mon12/06/21 at 1402 documented in this encounter
--- OUTSIDE RECORDS SUMMARY | 2022-05-13 07:46 | XMS_ITS | Encounter Summary ---
:1940 Author Organization [facility] Address [address] [place] [address] Care Team Providers Name Role Phone Unavailable Primary Care Provider Unavailable Encounter Details Date Type Department Care Team Description 12/06/2021 Clinical Communication Division of Pulmonary Samia Gonzales, Medicine in M.D., [facility] [place], [place] [address] [facility] [address] [place] [address] [phone] Social History Tobacco Use Types Packs/Day Years [...] How often do you attend rastafarian or anglican More than 4 time s per year [...]
--- OUTSIDE RECORDS SUMMARY | 2022-05-13 07:46 | XMS_ITS | Encounter Summary ---
:1940 Author Organization [facility] Address [address] [place] [address] Care Team Providers Name Role Phone Unavailable [...] often do you attend latter day or anabaptism More than 4 time s [...]
--- OUTSIDE RECORDS SUMMARY | 2022-05-13 07:46 | XMS_ITS | Encounter Summary ---
:1940 Author Organization [facility] Address [address] [place] [address] Care Team Providers Name Role Phone Unavailable Primary Care Provider Unavailable Encounter Details Date Type Department Care Team Description 2021 Ancillary Procedure Department of Radiology Gavin Andujar, in [facility] Natalie queen APRNN.P. [address] [facility] [address] [place] [address] [place] [address] Social History Tobacco Use Types Packs/Day Years [...] How often do you attend confucianism or protestant More than 4 time s [...]
--- OUTSIDE RECORDS SUMMARY | 2022-05-13 07:46 | XMS_ITS | Encounter Summary ---
:1940 Author Organization [facility] Address [address] [place] [address] Care Team Providers Name Role Phone Unavailable Primary Care Provider Unavailable Encounter Details Date Type Department Care Team Description 2021 Ancillary Procedure Department of Radiology Gavin Andujar, in [facility] Natalie queen APRNN.P. [address] [facility] [address] [place] [address] [place] [address] Social History Tobacco Use Types Packs/Day Years [...] How often do you attend yazidism or mormon More than 4 time s [...]
--- OUTSIDE RECORDS SUMMARY | 2022-05-13 07:46 | XMS_ITS | Encounter Summary ---
:1940 Author Organization [facility] Address [address] [place] [address] Care Team Providers Name Role Phone Unavailable Primary Care Provider Unavailable Encounter Details Date Type Department Care Team Description 2021 Clinical Communication RST Simran Field [address] [facility] Estela Mendes, M.S. [place], [place] [address] [facility] [address] [place] [phone] Social History Tobacco Use Types Packs/Day Years [...] or relatives? How often do you attend faith or amish More than 4 time s per year 04/11/2022 services? Do you belong to any clubs or organizations Yes 04/11/2022 such as faith groups, unions, fraternal or athletic groups, or [...] or slept in a fci (including now)? Education Answer Date Recorded What [...]
--- OUTSIDE RECORDS SUMMARY | 2022-05-13 07:46 | XMS_ITS | Encounter Summary ---
:1940 Author Organization [facility] Address [address] [place] [address] Care Team Providers Name Role Phone Unavailable [...] or relatives? How often do you attend denominational or nondenominational More than 4 time s per year 04/11/2022 services? Do you belong to any clubs or organizations Yes 04/11/2022 such as denominational groups, unions, fraternal or athletic groups, or [...]
--- OUTSIDE RECORDS SUMMARY | 2022-05-13 07:47 | XMS_ITS | Encounter Summary ---
:1940 Author Organization [facility] Address [address] [place] [address] Care Team Providers Name Role Phone Unavailable [...] How often do you attend hindu or religion More than 4 time s per year 04/11/2022 services? Do you belong to any clubs or organizations Yes 04/11/2022 such as hindu groups, unions, fraternal or athletic groups, or [...]
--- OUTSIDE RECORDS SUMMARY | 2022-05-13 07:47 | XMS_ITS | Encounter Summary ---
:1940 Author Organization [facility] Address [address] [place] [address] Care Team Providers Name Role Phone Unavailable Primary Care Provider Unavailable Encounter Details Date Type Department Care Team Description 02/14/2019 Hospital Encounter Department of Marilin, Achalasi a; Laboratory Medicine Chicohankar, Cough Wi th Hemorrhage; and Pathology, M.B.B.S. Shortness Of Breath; [facility], in Dysphagi a; [facility] Gastroesophagea l Reflux Disease Without Esophagitis; [place] Laparoscopic Myotomy For Ach alasia Status Post; [address] [facility] Chronic Kidney Disease Stage 4 Glomerular Filtration Rate 15-29 (HCC) [place] [address] Social History Tobacco Use Types Packs/Day Years [...] How often do you attend mandaen or buddhism More than 4 time s [...] [facility] [address] [place], [place] [address] [facility] (ABNORMAL) Microalbumin, Random, Urine (02/14/2019 10:57 AM CDT) athologist Signature Microalbumin 101.0 mg/L 02/14/2019 11:27 AM CDT Comment: ----ADDITIONAL INFORMATION---- This test has been modified from the man ufacturer's instructions. Its performance characteri stics were determined by [facility] in a manner co nsistent with CLIA [...] [facility] [address] [place], [place] [address] [facility] (ABNORMAL) Urinalysis with Microscopic: Urine, Clean Catch (02/14/2019 10:57 AM CDT) [facility] gist Method Time Signature Source Midstream 02/14/2019 10:57 AM CDT Appearance Normal Normal 02/14/2019 11:27 AM CDT Osmolality, U 412 150 - 1150 02/14/2019 mOsm/kg 12:21 PM CDT pH, U 5.4 4.5 - 8.0 02/14/2019 12:21 PM CDT Comment: ----ADDITIONAL INFORMATION---- This test was developed and its performa nce characteristics determined by [facility] in a manner co nsistent with CLIA [...] [facility] [address] [place] [address] [facility] documented in this encounter Visit Diagnoses Diagnosis Achalasia Cough With Hemorrhage Shortness Of Breath Dysphagia Gastroesophageal Reflux Disease Without Esophagitis Laparoscopic Myotomy For Achalasia Statu s Post Chronic Kidney Disease Stage 4 Glomerula r Filtration Rate 15-29 (HCC) documented in this encounter
--- OUTSIDE RECORDS SUMMARY | 2022-05-13 07:47 | XMS_ITS | Encounter Summary ---
:1940 Author Organization [facility] Address [address] [place] [address] Care Team Providers Name Role Phone Unavailable Primary Care Provider Unavailable Encounter Details Date Type Department Care Team Description 02/14/2019 Hospital Encounter Department of Marilin, Achalasi a; Radiology, [place] Subhankar, Cough With H emorrhage; [facility]; [facility]; [place] Gastroesophageal Reflux Dise ase Without Esophagitis; [address] [facility] Laparoscopic Myotomy For Ach alasia Status Post; [place], [place] Chronic Kidney Disease Stage 4 Glomerular Filtration Rate 15-29 ([facility]) [id number] Social History Tobacco Use Types Packs/Day Years [...] How often do you attend yazidism or gnosticism More than 4 time s per year [...]
--- OUTSIDE RECORDS SUMMARY | 2022-05-13 07:47 | XMS_ITS | Encounter Summary ---
:1940 Author Organization [facility] Address [address] [place] [address] Care Team Providers Name Role Phone Unavailable [...] How often do you attend quaker or sikhism More than 4 time s per year 04/11/2022 services? Do you belong to any clubs or organizations Yes 04/11/2022 such as quaker groups, unions, fraternal or athletic groups, or [...]
--- OUTSIDE RECORDS SUMMARY | 2022-05-13 07:47 | XMS_ITS | Encounter Summary ---
:1940 Author Organization [facility] Address [address] [place] [address] Care Team Providers Name Role Phone Unavailable Primary Care Provider Unavailable Reason for Referral Outpatient (Routine) - Closed Specialty Diagnoses / Procedures Referred By Contact Refer red To Contact Diagnoses Guillermo Ayers M.D., [facility] Procedures FL Esophagram VT XR ESOPHAGUS HC XR ESOPHAGUS VT XR ESOPHAGUS Ph.D. 200 [place] [address] Referral ID Status Reason Start Date Expiration Date Visits Requ ested Visits Authorized [id number] Closed 12/17/2018 12/17/2019 1 1 Reason for Visit Outpatient (Routine) - Closed Specialty Diagnoses / Procedures Referred By Contact Refer red To Contact Diagnoses Guillermo Ayers M.D., [facility] Procedures FL Esophagram VT XR ESOPHAGUS HC XR ESOPHAGUS VT XR ESOPHAGUS Ph.D. 200 [place] [address] Referral ID Status Reason Start Date Expiration Date Visits Requ ested Visits Authorized [id number] Closed 12/17/2018 12/17/2019 1 1 Encounter Details Date Type Department Care Team Description 02/15/2019 Hospital Encounter Department of Radiology, Cinthya Werner, eryn Freeman M.D., Ph.D. [address] [phone] Social History Tobacco Use Types Packs/Day [...] How often do you attend hindu or mandaeism More than 4 time s per year 04/11/2022 services? Do you belong to any clubs or organizations Yes 04/11/2022 such as hindu groups, unions, fraPearl's Premium or athletic groups, or school groups? How [...]
--- OUTSIDE RECORDS SUMMARY | 2022-05-13 07:47 | XMS_ITS | Encounter Summary ---
:1940 Author Organization [facility] Address [address] [place] [address] Care Team Providers Name Role Phone Unavailable [...] Stage 4 Glomerular Filtration Rate 15-29 (HCC) [facility] Laura GranadosB.S. [address] [place] [address] Referral ID Status Reason Start Date Expiration Date Visits Requ ested Visits Authorized [id number] Closed 02/14/2019 02/14/2020 1 1 Encounter Details Date Type Department Care Team Description 02/25/2019 Comprehensive Visit Division of Paulie Chronic Kidney Disease Stage 4 Glomerular Filtration Rate 15-29 (HCC) (Primary Dx); Nephrology and Ferny Krishnan, Achalasia; Hypertension in M.D. Cough With Hemorrhage; [facility], [address] [place] [address] Shortness Of Breath; [place], [place] Dysphagia; [address] [place] [phone] Gastroesophageal Reflux Disease Without Esophagitis; [place], [place] [phone] Laparoscopic M yotomy For Achalasia Status [place] [id number] (Work) [phone] Social History Tobacco Use Types Packs/Day Years [...] How often do you attend catholic or hinduism More than 4 time s [...] hasnever been biopsied. 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 He has also seen [...] BREATH POST 02/20/2019 4.05 L Final ??? Q3ZiuBwug 02/20/2019 98.00 % Final ??? [id number] 02/20/2019 96.00 % Final ??? PulseRest 02/20/2019 [...] PEF PRE 02/20/2019 6.09 L/s Final ??? RSY00-45% 02/20/2019 1.30 L/s Final ??? FRCPLETH PROVBASE [...] to decline. Total time 30 minutes cell [id number] less than 50% counseling. Ferny Apodaca M.D. [...]
--- OUTSIDE RECORDS SUMMARY | 2022-05-13 07:47 | XMS_ITS | Encounter Summary ---
:1940 Author Organization [facility] Address [address] [place] [address] Care Team Providers Name Role Phone Unavailable Primary Care Provider Unavailable Reason for Visit Reason Onset Date Comments Esophageal 12/14/2018 pre orders Encounter Details Date Type Department Care Team Description 12/14/2018 Clinical Division of Devaughn Werner (pre Communication Gastroenterology in Guillermo, [facility]) [place], [place] Ta., Ph.D. [address] [place] [address] Social History Tobacco Use Types Packs/Day [...] How often do you attend restorationism or worship More than 4 time s per year [...] or slept in a detention (including now)? Sex Assigned at Date Recorded Male 04/11/2022 12:05 PM CDT documented as of this encounter Plan of Treatment Not on filedocumented as of this encounter Visit Diagnoses Not on filedocumented in this encounter
--- OUTSIDE RECORDS SUMMARY | 2022-05-13 07:47 | XMS_ITS | Encounter Summary ---
:1940 Author Organization [facility] Address [address] [place] [address] Care Team Providers Name Role Phone Unavailable Primary Care Provider Unavailable Reason for Visit Outpatient (Routine) - Closed Specialty Diagnoses / Procedures Referred By Contact Refer red To Contact Pulmonary Medicine Diagnoses Achalasia Cough With Hemorrhage Shortness Of Breath Dysphagia Gastroesophageal Reflux Disease Without Esophagitis Laparoscopic Myotomy For Achalasia Status Post Chronic Kidney Disease Stage 4 Glomerular Filtration Rate 15-29 ([facility]) [facility] Laura GranadosB.S. 200 [place] [address] Referral ID Status Reason Start Date Expiration Date Visits V isits Requested Authorized [id number] Closed Specialty 02/14/2019 02/14/2020 1 1 Services Required Encounter Details Date Type Department Care Team Description 02/20/2019 Comprehensive Visit Division of Feroz Bo a; Pulmonary Jesu Mendes, Cough With He morrhage; Medicine in M.D. Shortness Of Breath; [address] Dysphagia; [place], [place] Gastroesophageal Reflux Dise ase Without Esophagitis; [address] [place] [phone] Laparoscopic Myotomy For Achalasia Statu s Post; [place], [place] [phone] Chronic Kidney Disease Stage 4 Glomerular Filtration Rate 15-29 ([facility]) [address] (Work) [phone] Social History Tobacco Use Types Packs/Day Years [...] How often do you attend mandaeism or latter-day More than 4 time s per year 04/11/2022 services? Do you belong to any clubs or organizations Yes 04/11/2022 such as mandaeism groups, unions, fraZazengo or athletic groups, or school groups? How [...] PFT's-mild restriction with TLC 66% predicted. Chest m-lzl-ywnuylyeq patchy infiltrate and atelectasis with prominent central [...]
--- OUTSIDE RECORDS SUMMARY | 2022-05-13 07:47 | XMS_ITS | Encounter Summary ---
:1940 Author Organization [facility] Address [address] [place] [address] Care Team Providers Name Role Phone Unavailable Primary Care Provider Unavailable Encounter Details Date Type Department Care Team Description 02/14/2019 Hospital Encounter Department of Marilin, Achalasi a; Laboratory Medicine Chicohankar, Cough Wi th Hemorrhage; and Pathology, M.B.B.S. Shortness Of Breath; [facility], in Dysphagi a; [facility] Gastroesophagea l Reflux Disease Without Esophagitis; [place] Laparoscopic Myotomy For Ach alasia Status Post; [address] [facility] Chronic Kidney Disease Stage 4 Glomerular Filtration Rate 15-29 (HCC) [place] [address] Social History Tobacco Use Types Packs/Day Years [...] or relatives? How often do you attend restoration or christianity More than 4 time s per year 04/11/2022 services? Do you belong to any clubs or organizations Yes 04/11/2022 such as restoration groups, unions, fraternal or athletic groups, or [...] Prothrombin Time (PT/INR) (02/14/2019 10:20 AM CDT) [facility] [employer] Method Time Signature Prothrombin 15.1 (H) 9.4 [...] Organization Address City/State/ZIP Code Phon e Number [facility] - [address] [place] [address] [facility] (ABNORMAL) Alkaline Phosphatase, Total and Isoenzymes (02/14/2019 10:20 AM CDT) [facility] [employer] Method Time Signature Alkaline 302 (H) 40 [...] Venous) AM CDT 10:41 AM CDT Narrative [facility] - 02/15/2019 12:05 PM CDT Specimen Information: Specimen ID: [id number] Specimen Type: Blood Specimen Collection Start Date: 02/15/20 10:20 AM Specimen Received Date: 02/14/2019 10:41 AM Specimen ID: [id number] Specimen Type: Blood Specimen Collection Start Date: 02/15/20 10:20 AM Specimen Received Date: 02/14/2019 11:22 AM Darwin RicoSBailey LAB BLOOD NON ADD-ON Performing Organization Address City/[facility] Phon e Number [facility] [email or web address] - [address] (ABNORMAL) PTH (Parathyroid Hormone) (02/14/2019 10:20 [...] SanchezBBaileyS. LAB BLOOD ADD-ON Performing Organization Address City/[facility]/ZIP Code Phon e Number [email or web address] - [address] 25-Hydroxyvitamin D2 and D3 (02/14/2019 10:20 [...] and its performa nce characteristics determined by [facility] in a manner consistent with CLIA requirements. This test has not been cleared or approved by the [place] d and Drug Administration. Specimen Anatomical Collection Method Collection Time Receive d Time (Source) Location / / Volume Laterality Blood (Blood, 02/14/2019 10:20 02/14/2019 1:36 Venous) AM CDT PM CDT Darwin Giles LAB BLOOD ADD-ON Performing Organization Address City/[facility]/ZIP Code Phon e Number [facility] [address] [place] [address] [facility] Uric Acid (02/14/2019 10:20 AM CDT) P athologist Signature Uric Acid, S 6.2 3.7 - 8.0 02/14/2019 mg/dL 12:03 PM CDT Specimen Anatomical Collection Method Collection Time Receive d Time (Source) Location / / Volume Laterality Blood (Blood, 02/14/2019 10:20 02/14/2019 Venous) AM CDT 10:41 AM CDT Darwin RicoSBailey LAB BLOOD ADD-ON Performing Organization Address City/State/ZIP Code Phon e Number [facility] - 200 [place] [address] [facility] (ABNORMAL) CBC with Differential (02/14/2019 10:20 AM [...] Organization Address City/State/ZIP Code Phon e Number [facility] - [address] [place] [address] [facility] (ABNORMAL) Renal Function Panel (02/14/2019 10:20 AM [...] >=60 02/14/2019 Black/ mL/min/BSA 12:03 PM CDT Tajik Comment: ----ADDITIONAL INFORMATION---- Estimated [...] Organization Address City/State/ZIP Code Phon e Number [facility] - [address] [place], [place] [address] [facility] documented in this encounter Visit Diagnoses Diagnosis Achalasia Cough With Hemorrhage Shortness Of Breath Dysphagia Gastroesophageal Reflux Disease Without Esophagitis Laparoscopic Myotomy For Achalasia Statu s Post Chronic Kidney Disease Stage 4 Glomerula r Filtration Rate 15-29 (HCC) documented in this encounter
--- OUTSIDE RECORDS SUMMARY | 2022-05-13 07:47 | XMS_ITS | Encounter Summary ---
:1940 Author Organization [facility] Address [address] [place] [address] Care Team Providers Name Role Phone Unavailable Primary Care Provider Unavailable Reason for Visit Outpatient (Routine) - Closed Specialty Diagnoses / Referred By Referred To Cont act Procedures Contact Gastroenterology and Marilin [place] Trang sanchez Hepatology Laura GranadosB.S. 200 [place] [address] Referral ID Status Reason Start Date Expiration Date Visits Requ ested Visits Authorized [id number] Closed 02/14/2019 02/14/2020 1 1 Encounter Details Date Type Department Care Team Description 02/20/2019 Office Visit Division of Kelechi Werner ([place] Gastroenterology in Trinh Li, Dx) [place], [place] Ph.D. [address] [place] [phone] Social History Tobacco Use Types Packs/Day [...]
--- OUTSIDE RECORDS SUMMARY | 2022-05-13 07:47 | XMS_ITS | Encounter Summary ---
:1940 Author Organization [facility] Address [address] [place] [address] Care Team Providers Name Role Phone Unavailable Primary Care Provider Unavailable Encounter Details Date Type Department Care Team Description 02/14/2019 Hospital Encounter Department of Marilin, Achalasi a; Radiology, Danny Granados, Cough With Hemorrhage; Building, in [facility]; [facility]; [place] Gastroesophageal Reflux Dise ase Without Esophagitis; [address] [facility] Laparoscopic Myotomy For Ach alasia Status Post; [place], [place] Chronic Kidney Disease Stage 4 Glomerular Filtration Rate 15-29 ([facility]) [address] Social History Tobacco Use Types Packs/Day Years [...] How often do you attend protestant or mandaen More than 4 time s [...]
--- OUTSIDE RECORDS SUMMARY | 2022-05-13 07:47 | XMS_ITS | Encounter Summary ---
:1940 Author Organization [facility] Address [address] [place] [address] Care Team Providers Name Role Phone Unavailable Primary Care Provider Unavailable Reason for Referral Outpatient (Routine) - Closed Specialty Diagnoses / Procedures Referred By Contact Refer red To Contact Diagnoses Achalasia Guillermo Werner M.D., [facility] Procedures EGD (EsophagoGastroDuodenoscopy) Restricted Ph.D. [address] [place] [address] Referral ID Status Reason Start Date Expiration Date Visits Requ ested Visits Authorized [id number] Closed 12/17/2018 12/17/2019 1 1 Reason for Visit Outpatient (Routine) - Closed Specialty Diagnoses / Procedures Referred By Contact Refer red To Contact Diagnoses Achalasia Guillermo Werner M.D., [facility] Procedures EGD (EsophagoGastroDuodenoscopy) Restricted Ph.D. [address] [place] [address] Referral ID Status Reason Start Date Expiration Date Visits Requ ested Visits Authorized [id number] Closed 12/17/2018 12/17/2019 1 1 Encounter Details Date Type Department Care Team Description 02/18/2019 Hospital Encounter Division of Guillermo Werner M.D., Ph.D. Achal[place] Gastroenterology in Juan Pablo Blevins APRN, [employer] [address] [place] [phone] [place], [place] [address] [place] [phone] Social History Tobacco Use Types Packs/Day [...] How often do you attend mormonism or tenriism More than 4 time s per year 04/11/2022 services? Do you belong to any clubs or organizations Yes 04/11/2022 such as mormonism groups, unions, [employer] or athletic groups, or school groups? How [...] sent through Care Everywhere.Care Following Upper Endoscopy (Maltese)Types of Diets (Maltese)documented in this encounter Medications at Time of [...] flip consistent with treat ed achalasia. Narrative CLANCY PROVATION - 02/18/2019 4:13 PM CDT Gonda [...] Organization Address City/State/ZIP Code Phon e Number [facility] NA documented in this encounter Visit Diagnoses [...]
--- OUTSIDE RECORDS SUMMARY | 2022-05-13 07:47 | XMS_ITS | Encounter Summary ---
:1940 Author Organization [facility] Address [address] [place] [address] Care Team Providers Name Role Phone Unavailable [...] or relatives? How often do you attend pentecostalism or jehovah's witness More than 4 time s per year 04/11/2022 services? Do you belong to any clubs or organizations Yes 04/11/2022 such as pentecostalism groups, unions, fraternal or athletic groups, or [...] 07/06/2002 9:51 AM Res ults for this APPAREL RENTAL CLERK procedure are i n the results section. DX CHEST POST PICC Routine 07/04/2002 8:12 PM Res ults for this PLACEMENT 1 VIEW APPAREL RENTAL CLERK procedure a re in the results section. US EXTREMITY VEINS Routine 07/04/2002 9:06 AM Res ults for this APPAREL RENTAL CLERK procedure are i n the results section. US EXTREMITY VEINS Routine 06/30/2002 10:55 AM Re sults for this APPAREL RENTAL CLERK procedure are i n the results section. documented in this encounter Results US Extremity Veins (07/06/2002 9:51 AM APPAREL RENTAL CLERK) Anatomical Region Laterality Modality Vascular, Upper Extremity, Lower Extremity Ultrasound Specimen (Source) Anatomical Collection Method Collection Time Re ceived Time Location / / Volume Laterality 07/06/2002 9:51 AM APPAREL RENTAL CLERK Narrative 07/06/2002 12:16 PM APPAREL RENTAL CLERK 06-Jul-2002 09:51:00 ??Exam: R US Extremity Veins Limited Indications: RUE--F/U DVT, PLEASE DO SAT URDAY PER ??[id number] ORIGINAL REPORT - 06-Jul-2002 12:16:00 Doppler ultrasound [...] with Dr. Vazquez. Ind: [phone] ?? Dia.556, 943.556, 542.556 ?? Electronically signed by: ?? Arvin Bland M.D. [phone] ([id number]) 06-Jul-20 02 12:16 Procedure Note Chava Bland M.D. - 11/24/2017Formatti ng of this note might be different from the original. 06-Jul-2002 09:51:00 Exam: R US Extremit y Veins Limited Indications: RUE--F/U DVT, PLEASE DO SAT URDAY PER [id number] ORIGINAL REPORT - 06-Jul-2002 12:16:00 Doppler ultrasound [...] .556 Electronically signed by: Arvin Bland M.D. [phone] ([id number]) 06-Jul-20 02 12:16 Edison Vazquez M.D. IMG US PROCEDURES DX Chest Post PICC Placement 1 View (07/04/2002 8:12 PM APPAREL RENTAL CLERK) Anatomical Region Laterality Modality Chest N/A Radiographic Imaging Specimen (Source) Anatomical Collection Method Collection Time Re ceived Time Location / / Volume Laterality 07/04/2002 8:12 PM APPAREL RENTAL CLERK Narrative 07/05/2002 10:44 AM APPAREL RENTAL CLERK 04-Jul-2002 20:12:00 ??Exam: Chest-PICC Indications: left picc placement-svc ORIGINAL REPORT - 04-Jul-2002 20:49:00 Left PICC line with tip at the junction of the left innominate vein and SVC. No pneumothorax. Electronically signed by: ?? Norris Peraza [phone] [id number]) 04-Jul-20 02 20:49 I have reviewed the [...] No pneumothorax. Electronically signed by: Norris Peraza [phone] [id number] 04-Jul-20 02 20:49 I have reviewed the films/images and agr ee with the above interpretation. Electronically signed by: Eric. Dai Boyce M.D. 05-Jul-2002 10:44 Edison Vazquez M.D. IMG DIAGNOSTIC IMAGING PROCE [facility] US Extremity Veins (07/04/2002 9:06 AM APPAREL RENTAL CLERK) Anatomical Region Laterality Modality Vascular, Upper Extremity, Lower Extremity Ultrasound Specimen (Source) Anatomical Collection Method Collection Time Re ceived Time Location / / Volume Laterality 07/04/2002 9:06 AM APPAREL RENTAL CLERK Narrative 07/04/2002 11:44 AM APPAREL RENTAL CLERK 04-Jul-2002 09:06:00 ??Exam: R US Extremity Veins Limited Indications: SWELLING/R/O THROMBOSIS^MB3 [id number] ORIGINAL REPORT - 04-Jul-2002 11:44:00 Ultrasound examination [...] Extremit y Veins Limited Indications: SWELLING/R/O THROMBOSIS^MB3 [id number] ORIGINAL REPORT - 04-Jul-2002 11:44:00 Ultrasound examination [...] Dia.545 Electronically signed by: Brandee Conde D.O. [id number] 04-Jul-2002 11 :44 Edison Vazquez M.D. IMG US PROCEDURES US Extremity Veins (06/30/2002 10:55 AM APPAREL RENTAL CLERK) Anatomical Region Laterality Modality Vascular, Upper Extremity, Lower Extremity Ultrasound Specimen (Source) Anatomical Collection Method Collection Time Re ceived Time Location / / Volume Laterality 06/30/2002 10:55 AM APPAREL RENTAL CLERK Narrative 07/01/2002 10:57 AM APPAREL RENTAL CLERK 30-Jun-2002 10:55:00 ??Exam: US Extremity Veins Complete Indications: SWELLING/PAIN ORIGINAL REPORT - 30-Jun-2002 15:57:00 Doppler ultrasound evaluation of bilater de lower extremity venous systems demonstrates patent and easily compressible common femoral, superficial femoral, and popliteal veins in both legs. ??No evidence for deep venous thrombosis. ?? Ultrasound electronic images only. ??NO FILMS Ind: [id number] ?? Dia.120 ?? Electronically signed by: ?? Marysol Mejia MD [phone] ([id number]) 2 15:57 I have reviewed the films/images and agr ee with the above interpretation. Electronically signed by: ?? Juan David [phone] ([id number]) 2 10:57 Procedure Note Provider, Historical [...] Dia.120 Electronically signed by: Marysol Mejia MD [phone] ([id number]) 2 15:57 I have reviewed the films/images and agr ee with the above interpretation. Electronically signed by: Juan David [phone] ([id number]) 2 10:57 Bassam BAKER US PROCEDURES documented in this encounter Visit Diagnoses Not on filedocumented in this encounter
--- OUTSIDE RECORDS SUMMARY | 2022-05-13 07:47 | XMS_ITS | Encounter Summary ---
:1940 Author Organization [facility] Address [address] [place] [address] Care Team Providers Name Role Phone Unavailable Primary Care Provider Unavailable Reason for Referral Outpatient (Routine) - Closed Specialty Diagnoses / Referred By Referred To Cont act Procedures Contact Gastroenterology and [facility] Hepatology Laura GranadosB.S. 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 [address] [place] [address] Referral ID Status Reason Start Date Expiration Date Visits Requ ested Visits Authorized [id number] Closed 12/17/2018 12/17/2019 1 1 Outpatient (Routine) - Closed Specialty Diagnoses / Procedures Referred By Contact Refer red To Contact Diagnoses Guillermo Ayers M.D., [facility] Procedures ECG 12 Lead VT EKG 12 LEAD TRACE ONLY VT EKG I&R ONLY Ph.D. [address] [place] [address] Referral ID Status Reason Start Date Expiration Date Visits Requ ested Visits Authorized [id number] Closed 12/17/2018 12/17/2019 1 1 Outpatient (Routine) - Closed Specialty Diagnoses / Procedures Referred By Contact Refer red To Contact Thoracic Surgery Diagnoses MattiealasiGuillermo Roberto M.D., Ph.D. [address] [place] [address] Referral ID Status Reason Start Date Expiration Date Visits Requ ested Visits Authorized [id number] Closed 12/17/2018 12/17/2019 1 1 Outpatient (Routine) - Closed Specialty Diagnoses / Procedures Referred By Contact Refer red To Contact Diagnoses Guillermo Ayers M.D., [place] Procedures FL Esophagram VT XR ESOPHAGUS HC XR ESOPHAGUS VT XR ESOPHAGUS Ph.D. [address] [place] [address] Referral ID Status Reason Start Date Expiration Date Visits Requ ested Visits Authorized [id number] Closed 12/17/2018 12/17/2019 1 1 Reason for Visit Reason Comments Dysphasia Esoph Appointment Request (Routine) - Closed Specialty Diagnoses / Referred By Contact Referred To Procedures Contact Gastroenterology and [facility] [address] [place] [address] Referral ID Status Reason Start Date Expiration Date Visits Requ ested Visits Authorized [id number] Closed 12/14/2018 12/14/2019 1 Encounter Details Date Type Department Care Team Description 02/14/2019 Comprehensive Visit Division of Chakrabort Achalasi a (Primary Dx); Gastroenterology in y, Cough Wi th Hemorrhage; [place], [place] Subhankar, Shortness Of Breath; [address] [place] [address] M.B.B.S. Dysphagia; [place], [place] Gastroesophage al Reflux Disease Without Esophagitis; [phone] Laparoscopic Myotomy For Ach alasia Status Post; [phone] Chronic Kidney Disease Stage 4 Glomerular Filtration [...] How often do you attend sabianist or restorationism More than 4 time s per year [...] neck surgery? ??Yes, brain surgery here at [facility] Do you have a continuous infusion device [...] of any scanned into our records done [id number] revealed no esophagitis. All these endoscopies noted [...] Disease Stage 4 Glomerular Filtration Rate 15-29 ([facility]) Nephrology and Hypertension- Chronic kidney disease consult [...] failure as well. CT CT Job ID: [id number] documented in this encounter Plan of Treatment [...] Disease Stage 4 Glomerular Filtration Rate 15-29 ([facility]) Pulmonary Medicine - Outpatient Routine Achalasia Expected: [...] athologist Signature DLCO SINGLE 17.42 ml/(min*mm 02/20/2019 [facility] BREATH POST Hg) 1:52 PM CDT [address] VA SINGLE 4.05 L 02/20/2019 [facility] 1:52 PM CDT SUITE [id number] 98.00 % 02/20/2019 [facility] 1:52 PM CDT SUITE [id number] 96.00 % 02/20/2019 [facility] 1:52 PM CDT SUITE PulseRest 73.00 1/min 02/20/2019 [facility] 1:52 PM CDT SUITE PulseExer 129.00 1/min 02/20/2019 [facility] 1:52 PM CDT SUITE EXER TIME 3.00 min 02/20/2019 [facility] 1:52 PM CDT SUITE STEP HEIGHT 9.00 Inch 02/20/2019 [facility] PRE 1:52 PM CDT SUITE VC MAX POST 2.46 L 02/20/2019 [facility] 1:52 PM CDT SUITE PostFEV1 1.76 L 02/20/2019 [facility] 1:52 PM CDT SUITE FEV1/FVC POST 71.87 % 02/20/2019 [facility] 1:52 PM CDT SUITE PostFVC 2.46 L 02/20/2019 [facility] 1:52 PM CDT SUITE FET POST 6.10 sec 02/20/2019 [facility] 1:52 PM CDT SUITE PEF POST 8.10 L/s 02/20/2019 [facility] 1:52 PM CDT SUITE FEF 25-75 % 1.10 L/s 02/20/2019 [facility] 1:52 PM CDT SUITE VC MAX PRE 2.50 L 02/20/2019 [facility] 1:52 PM CDT SUITE FEV1 1.82 L 02/20/2019 [facility] 1:52 PM CDT SUITE FEV1/FVC 73.95 % 02/20/2019 [facility] 1:52 PM CDT SUITE MVV 55.36 L/min 02/20/2019 [facility] 1:52 PM CDT SUITE FVC 2.47 L 02/20/2019 [facility] 1:52 PM CDT SUITE FET PRE 6.00 sec 02/20/2019 [facility] 1:52 PM CDT SUITE PEF PRE 6.09 L/s 02/20/2019 [facility] 1:52 PM CDT SUITE OVO85-53% 1.30 L/s 02/20/2019 [facility] 1:52 PM CDT SUITE FRCPLETH 2.44 L 02/20/2019 [facility] 1:52 PM CDT SUITE RV 1.91 L 02/20/2019 [facility] 1:52 PM CDT SUITE TLC 4.40 L 02/20/2019 [facility] 1:52 PM CDT SUITE RV % TLC PRE 43.50 % 02/20/2019 [facility] 1:52 PM CDT SUITE VC PRE 2.49 L 02/20/2019 [facility] 1:52 PM CDT SUITE SUBSTANCE POST NaN 02/20/2019 [facility] 1:52 PM CDT SUITE DOSE POST NaN 02/20/2019 [facility] 1:52 PM CDT SUITE % PRED VC MAX 67.22 % 02/20/2019 [facility] 1:52 PM CDT SUITE FEV1% 65.60 % 02/20/2019 [facility] 1:52 PM CDT SUITE % PRED 98.14 % 02/20/2019 [facility] FEV1/FVC 1:52 PM CDT SUITE FVC% 66.39 % 02/20/2019 [facility] 1:52 PM CDT SUITE % PRED PEF 80.62 % 02/20/2019 [facility] 1:52 PM CDT SUITE % PRED FEF 63.82 % 02/20/2019 [facility] 25-75% 1:52 PM CDT SUITE PRED VC MAX 3.72 L 02/20/2019 [facility] 1:52 PM CDT SUITE PRED FEV 1 2.78 L 02/20/2019 [facility] 1:52 PM CDT SUITE PRED FEV1/FVC 75.35 % 02/20/2019 [facility] 1:52 PM CDT SUITE PRED FVC 3.72 L 02/20/2019 [facility] 1:52 PM CDT SUITE PRED PEF 7.55 L/s 02/20/2019 [facility] 1:52 PM CDT SUITE PRED FEF 2.03 L/s 02/20/2019 [facility] 25-75% 1:52 PM CDT SUITE Specimen (Source) Anatomical Collection Method Collection Time Re ceived Time Location / / Volume Laterality 02/20/2019 12:08 PM CDT Narrative This result has an attachment that is no t available. Subhankar Marilin M.B.B.S. PFT ORDERABLES Performing Organization Address City/State/ZIP Code Phon e Number [facility] SUITE [facility] SU[facility] NA ECG 12 Lead (02/15/2019 8:59 AM CDT) P athologist Signature Ventricular Rate 89 BPM MUSE ECG/Min QRSD Interval 178 ms MUSE QT Interval 450 ms MUSE QTC Interval 547 ms MUSE R Elkins -41 degrees MUSE T Wave Elkins 93 degrees MUSE Specimen Anatomical Collection Method [...] M.D., Ph.D. ECG ORDERABLES Performing Organization Address City/[facility] [address]/ZIP Code Phon e Number MUSE MUSE NA [...] bilaterally with bilateral nonobstructing renal stones. Darwin RicoSBailey IMG US PROCEDURES (ABNORMAL) Microalbumin, Random, Urine (02/14/2019 10:57 AM CDT) P athologist Signature Microalbumin 101.0 mg/L 02/14/2019 11:27 AM CDT Comment: ----ADDITIONAL INFORMATION---- This test has been modified from the man ufacturer's instructions. Its performance characteri stics were determined by [facility] in a manner co nsistent with CLIA [...] Catch) AM CDT 10:57 AM CDT Darwin RicoSBailey LAB URINE ORDERABLES Performing Organization Address City/State/ZIP Code Phon e Number [facility] - [address] [place], [place] [address] [facility] (ABNORMAL) Urinalysis with Microscopic: Urine, Clean [...] its performa nce characteristics determined by [facility] in a manner co nsistent with CLIA [...] Organization Address City/State/ZIP Code Phon e Number [facility] - [address] [place], [place] [address] [facility] (ABNORMAL) Prothrombin Time (PT/INR) (02/14/2019 10:20 AM CDT) [facility] gist Method Time Signature Prothrombin 15.1 [...] Organization Address City/State/ZIP Code Phon e Number [facility] - [address] [place], [place] [address] [facility] (ABNORMAL) Alkaline Phosphatase, Total and Isoenzymes (02/14/2019 10:20 AM CDT) [facility] Method Time Signature Alkaline 302 (H) 40 [...] Venous) AM CDT 10:41 AM CDT Narrative [facility] - [facility] - 02/15/2019 12:05 PM CDT Specimen Information: Specimen ID: [id number] Specimen Type: Blood Specimen Collection Start Date: 02/15/20 19 10:20 AM Specimen Received Date: 02/14/2019 10:41 AM Specimen ID: [id number] Specimen Type: Blood Specimen Collection Start Date: 02/15/20 10:20 AM Specimen Received Date: 02/14/2019 11:22 AM Darwin RicoSBailey LAB BLOOD NON ADD-ON Performing Organization Address City/[facility] [address]/ZIP Code Phon e Number [facility] - [address] [place] [address] [facility] (ABNORMAL) PTH (Parathyroid Hormone) (02/14/2019 10:20 [...] RicoS. LAB BLOOD ADD-ON Performing Organization Address [facility] [address]/ZIP Code Phon e Number [facility] - [address] [place] [address] [facility] 25-Hydroxyvitamin D2 and D3 (02/14/2019 10:20 [...] its performa nce characteristics determined by [facility] in a manner consistent with CLIA requirements. This test has not been cleared or approved by the [place] d and Drug Administration. Specimen Anatomical Collection Method Collection Time Receive d Time (Source) Location / / Volume Laterality Blood (Blood, 02/14/2019 10:20 02/14/2019 1:36 Venous) AM CDT PM CDT Darwin RicoSBailey LAB BLOOD ADD-ON Performing Organization Address City/State/ZIP Code Phon e Number [facility] [address] [place], [place] [address] [facility] Uric Acid (02/14/2019 10:20 AM CDT) P athologist Signature Uric Acid, S 6.2 3.7 - 8.0 02/14/2019 mg/dL 12:03 PM CDT Specimen Anatomical Collection Method Collection Time Receive d Time (Source) Location / / Volume Laterality Blood (Blood, 02/14/2019 10:20 02/14/2019 Venous) AM CDT 10:41 AM CDT Darwin Giles LAB BLOOD ADD-ON Performing Organization Address City/State/ZIP Code Phon e Number [facility] - [address] [place] [address] [facility] (ABNORMAL) CBC with Differential (02/14/2019 10:20 [...] Organization Address City/State/ZIP Code Phon e Number [facility] - [address] [place], [place] [address] [facility] (ABNORMAL) Renal Function Panel (02/14/2019 10:20 [...] >=60 02/14/2019 Black/ mL/min/BSA 12:03 PM CDT Thai Comment: ----ADDITIONAL INFORMATION---- Estimated GFR calculated using [...] Organization Address City/State/ZIP Code Phon e Number [facility] - [address] [place], [place] [address] [facility] DX Chest AP or PA and [...] VIEWS Procedure Note John Root M.D. - 02/14/2019Formhuyen g of this note might be different [...]
--- OUTSIDE RECORDS SUMMARY | 2022-05-13 07:47 | XMS_ITS | Encounter Summary ---
:1940 Author Organization [facility] Address [address] [place] [address] Care Team Providers Name Role Phone Unavailable Primary Care Provider Unavailable Encounter Details Date Type Department Care Team Description 07/29/2003 - Hospital Encounter HX RST SLEEP FLOOR Shivam, 08/05/2003 PRACTICE Juan Pablo Purdy M.D. [address] [place] [address] Social History Tobacco Use Types Packs/Day Years [...] How often do you attend adventism or islam More than 4 time s [...]
--- OUTSIDE RECORDS SUMMARY | 2022-05-13 07:47 | XMS_ITS | Encounter Summary ---
:1940 Author Organization [facility] Address [address] [place] [address] Care Team Providers Name Role Phone Unavailable Primary Care Provider Unavailable Encounter Details Date Type Department Care Team Description 02/18/2019 Anesthesia Event Division of Stas Blevins APRN, SHEATHER [address] [place] [address] [facility] [address] [facility] [address] [place] [address] [place], [place] [address] [place] [address] Anesthesia Record Procedure Summary Procedure Name Responsible Anesthesia Start Anesthesia Stop Anesthesiologist Time Time EGD Juan Pablo Blevins APRN, 02/18/19 1536 02/18 1615 (ESOPHAGOGASTRODUODE SHEATHER NOSCOPY) RESTRICTED Events Date Time Event Comment [...] h andoff to the receiving staff during [facility] we 1. Identified the patient 2. [...] How often do you attend denominational or denominational More than 4 time s [...] Room / Location: Division of Gastroenterology in [place], [place] Anesthesia Start: 1536 Anesthesia Stop: 1615 [...]
--- OUTSIDE RECORDS SUMMARY | 2022-05-13 07:47 | XMS_ITS | Encounter Summary ---
:[address] [facility] Address [address] [place] [address] Care Team Providers Name Role Phone Unavailable [...] How often do you attend cheondoism or congregation More than 4 time s [...] 3:49 PM Re sults for this REPORT [facility] procedure are i n the results section. EEG ROUTINE - AWAKE Routine 06/25/2003 8:13 AM Re sults for this AND SLEEP [facility] procedure are i n the results section. MR BRAIN WITHOUT Routine 06/25/2003 7:31 AM Resul ts for this AND WITH IV [facility] procedure are i n CONTRAST the results section. documented in this encounter Results Hx general Pathology Report (06/25/2003 3:49 PM [facility]) Specimen Anatomical Collection Method Collection Time Receive d Time (Source) Location / / Volume Laterality 06/25/2003 3:49 PM 3 3:49 [facility] PM [facility] Narrative [facility] - 06/25/2003 3:49 PM [facility] ?06/25/2003 General Biopsy ? ([id number]) ? Requested By: ??Ta Jasmine ??[phone] ? TISSUE DESCRIPTION: [id number] A1 ?? A. ??Bulb, Duodenum biopsy: ??(1 piece 0.3 cm. in diameter) ?DIAGNOSIS: ?? Small bowel, duodenal bulb, nodule, end oscopic biopsy: ??Heterotopic fundic-type mucosa. ? 06/26/03 ??Rahel Woo M.D. [phone] ? Procedure Note 11/11/2017 06/25/2003 General Biopsy ([id number]) Requested By: Dieudonne Higgins M.D. [phone] TISSUE DESCRIPTION: [id number] A1 A. Bulb, Duodenum biopsy: (1 piece 0.3 cm. in diameter) DIAGNOSIS: Small bowel, duodenal bulb, nodule, end oscopic biopsy: Heterotopic fundic-type mucosa. 06/26/03 Rahel Woo M.D. [phone] Historical Provider LAB PATHOLOGY/CYTOLOGY ORDER SHON Performing Organization Address City/State/ZIP Code Phon e Number [facility] - [address] [place], [place] [address] [facility] EEG routine - awake and sleep (06/25/2003 8:13 AM [facility]) Specimen (Source) Anatomical Collection Method Collection Time Re ceived Time Location / / Volume Laterality 06/25/2003 8:13 AM [facility] RADIOLOGY SYSTEM - 06/25/2003 8:13 AM [facility] ?? 25 Jun 2003 ? Electroencephalography ?Final Report ? Referring Physician: ??Gen lenka Schaffer ??[phone] ?Date: ??25 Jun 2003 ?? EEG Senior Hardware Engineer: ? Micheal Ardon [phone] ?? Clinical Problem: ? Seizures ?? CLINICAL [...] right parasaggital regions (awake and ?? asleep); ??peoplesoft consultant. ?? REPORT: ??The recording during wakef ulness [...] ?? breathing was observed during sleep. ??The peoplesoft consultant was unremarkable. Micheal Lewis (Signature date Jun 2003 12:12) Procedure Note Jos Lewis M.D. - 12/04/2017Formatting o f this note might be different from the original. 25 Jun 2003 Electroencephalography Fin al Report Referring Physician: Tyra Schaffer [phone] Date: 25 Jun 2003 EEG Senior Hardware Engineer: Micheal Lewis [phone] Clinical Problem: Seizures CLINICAL INTERPRETATION: The EEG [...] and right parasaggital regions (awake and asleep); peoplesoft consultant. REPORT: The recording during wakefulnes s shows [...] breathing was observed during sleep. Th e peoplesoft consultant was unremarkable. Micheal Lewis (Signature date Jun 2003 12:12) Tyra Schaffer M.D. NEUROLOGY ORDERABLES Performing Organization Address City/State/ZIP Code Phon e Number [facility] [address] [place] [address], U SA MR Brain without and with IV Contrast (06/25/2003 7:31 AM [facility]) Anatomical Region Laterality Modality Head, Brain N/A Magnetic Resonance Specimen (Source) Anatomical Collection Method Collection Time Re ceived Time Location / / Volume Laterality 06/25/2003 7:31 AM [facility] Narrative 06/25/2003 8:38 AM [facility] 25-Jun-2003 07:31:00 ??Exam: MRI Hd wo&w Indications: [...] 117.200 ?? Dia.450 ?? Franci Starks MD [phone] ([id number]) ?? I have reviewed the films/images and agr ee with the above interpretation. Electronically signed by: ?? Lizzette Varela M.D. [phone] 25-Jun-2003 08:36 Procedure Note Keila Varela M.D. [...] negative. Ind: 117.200 Dia.450 Franci Starks MD [phone] ([id number]) I have reviewed the films/images and agr ee with the above interpretation. Electronically signed by: Lizzette Varela M.D. [phone] 25-Jun-2003 08:36 Fede BAKER MRI PROCEDURES documented in this encounter Visit Diagnoses Not on filedocumented in this encounter
--- OUTSIDE RECORDS SUMMARY | 2022-05-13 07:48 | XMS_ITS | Encounter Summary ---
:1940 Author Organization [facility] Address [address] [place] [address] Care Team Providers Name Role Phone Unavailable [...] How often do you attend synagogue or hindu More than 4 time s [...] or slept in a jail (including now)? Sex Assigned at Date Recorded Male 04/11/2022 12:05 PM CDT documented as of this encounter Plan of Treatment Not on filedocumented as of this encounter Procedures Procedure Name Priority Date/Time Associated Comments Diagnosis US RETROPERITONEUM Routine 06/24/2002 9:19 Result s for this LIMITED PLUS AM FORENSIC PSYCHOLOGIST procedure are i n RETROPERITONEUM LIMITED the results DOPPLER section. DX OUTSIDE IMAGE Routine 06/24/2002 6:38 Results for this INTERPRETATION AM FORENSIC PSYCHOLOGIST procedure are in the results section. DX CHEST POST PICC Routine 06/21/2002 10:13 Resul ts for this PLACEMENT 1 VIEW PM FORENSIC PSYCHOLOGIST procedure a re in the results section. DX CHEST POST PICC Routine 06/21/2002 6:11 Result s for this PLACEMENT 1 VIEW PM FORENSIC PSYCHOLOGIST procedure a re in the results section. HXGENERAL PATHOLOGY Routine 06/21/2002 4:19 Resul ts for this REPORT PM FORENSIC PSYCHOLOGIST procedure are i n the results section. ECG Routine 06/21/2002 10:38 Results for this AM FORENSIC PSYCHOLOGIST procedure are i n the results section. CT ORBITS AND SELLA Routine 06/21/2002 8:27 Resul ts for this WITHOUT IV CONTRAST AM FORENSIC PSYCHOLOGIST procedur e are in the results section. ECHOCARDIOGRAM Routine 06/20/2002 8:35 AM FORENSIC PSYCHOLOGIST DX OUTSIDE IMAGE Routine 06/20/2002 6:32 Results for this INTERPRETATION AM FORENSIC PSYCHOLOGIST procedure are in the results section. HXGENERAL PATHOLOGY Routine 06/19/2002 10:26 Resu lts for this REPORT AM FORENSIC PSYCHOLOGIST procedure are i n the results section. HXPHYS SURG BLD ORDER Routine 06/18/2002 10:00 Re sults for this PM FORENSIC PSYCHOLOGIST procedure are i n the results section. US ABDOMEN COMPLETE Routine 06/18/2002 9:39 Resul ts for this AM FORENSIC PSYCHOLOGIST procedure are i n the results section. MR CERVICAL AND THORACIC Routine 06/18/2002 8:24 Results for this WITHOUT AND WITH IV AM FORENSIC PSYCHOLOGIST procedur e are in CONTRAST the results section. ECG Routine 06/16/2002 9:34 Results for this PM FORENSIC PSYCHOLOGIST procedure are i n the results section. DX CHEST AP OR PA AND Routine 06/16/2002 5:55 Res ults for this LATERAL 2 VIEWS PM FORENSIC PSYCHOLOGIST procedure ar e in the results section. CT HEAD WITHOUT IV Routine 06/16/2002 4:28 Result s for this CONTRAST PM FORENSIC PSYCHOLOGIST procedure are i n the results section. documented in this encounter Results US Retroperitoneum Limited plus Retroperitoneum Limited Doppler (06/24/2002 9:19 AM FORENSIC PSYCHOLOGIST) Anatomical Region Laterality Modality Abdomen, Pelvis N/A Ultrasound Specimen (Source) Anatomical Collection Method Collection Time Re ceived Time Location / / Volume Laterality 06/24/2002 9:19 AM FORENSIC PSYCHOLOGIST Narrative 06/24/2002 11:05 AM FORENSIC PSYCHOLOGIST 24-Jun-2002 09:19:00 ??Exam: US Retro Lmtd w Doppler Lmtd Indications: INSUFFICIENCY^[id number] ORIGINAL REPORT - 24-Jun-2002 11:05:00 The [...] Electronically signed by: ?? Aiden Lafleur MD [phone] ([id number]) 24-Jun-20 02 11:05 Procedure Note Provider, Historical - 11/24/2017Formatt ing of this note might be different from the original. 24-Jun-2002 09:19:00 Exam: US Retro Lmtd w Doppler Lmtd Indications: INSUFFICIENCY^[id number] ORIGINAL REPORT - 24-Jun-2002 11:05:00 The [...] Dia.210 Electronically signed by: Aiden Lafleur MD [phone] [id number]) 24-Jun-20 02 11:05 Jamal BAKER US PROCEDURES DX Outside Image Interpretation (06/24/2002 6:38 AM FORENSIC PSYCHOLOGIST) Anatomical Region Laterality Modality N/A Radiographic Imaging Specimen (Source) Anatomical Collection Method Collection Time Re ceived Time Location / / Volume Laterality 06/24/2002 6:38 AM FORENSIC PSYCHOLOGIST Narrative 06/24/2002 9:30 AM FORENSIC PSYCHOLOGIST 24-Jun-2002 06:38:00 ??Exam: Interp of OUTSIDE X-RAY [...] kidneys on the submitted images. ?? (06-24-02) ??(177) Electronically signed by: ?? Sena Tsang ??24-Jun-2002 0 9:30 Procedure Note Peng Santiago M.D., Ph.D. - 8 24-Jun-2002 06:38:00 Exam: Interp of OUT SIDE X-RAY Indications: ORIGINAL REPORT - 24-Jun-2002 09:30:00 Outside MRA of the renal arteries perfor [facility] 06-04-01. The examination is moderately limited. [...] the kidneys on the submitted images. (06-24-02) (419) Electronically signed by: Sena Tsang 24-Jun-2002 09: 30 Zeb Cotton M.D. IMG DIAGNOSTIC IMAGING PROCE DURES DX Chest Post PICC Placement 1 View (06/21/2002 10:13 PM FORENSIC PSYCHOLOGIST) Anatomical Region Laterality Modality Chest N/A Radiographic Imaging Specimen (Source) Anatomical Collection Method Collection Time Re ceived Time Location / / Volume Laterality 06/21/2002 10:13 PM FORENSIC PSYCHOLOGIST Narrative 06/22/2002 8:19 AM FORENSIC PSYCHOLOGIST 21-Jun-2002 22:13:00 ??Exam: Chest-PICC Indications: Right PICC Tip Placement ORIGINAL REPORT - 21-Jun-2002 22:45:00 Right PICC tip in the proximal right sub clavian vein. Electronically signed by: ?? Jossy Valdes MD [phone] ([id number]) 21-Jun-20 02 22:45 I have reviewed the films/images and agr ee with the above interpretation. Electronically signed by: ?? Miki ??Martha MOISE. ??[phone] 22-Jun-2002 0 8:19 Procedure Note Leroy Thomas M.D. - 11/24/2017Formatt ing of this note might be different from the original. 21-Jun-2002 22:13:00 Exam: Chest-PICC Indications: Right PICC Tip Placement ORIGINAL REPORT - 21-Jun-2002 22:45:00 Right PICC tip in the proximal right sub clavian vein. Electronically signed by: Jossy Valdes MD [phone] ([id number]) 21-Jun-20 02 22:45 I have reviewed the films/images and agr ee with the above interpretation. Electronically signed by: Miki Thomas MD. [phone] 22-Jun-2002 08:19 Jamal Camejo M.D. IMG DIAGNOSTIC IMAGING PROCE DURES DX Chest Post PICC Placement 1 View (06/21/2002 6:11 PM FORENSIC PSYCHOLOGIST) Anatomical Region Laterality Modality Chest N/A Radiographic Imaging Specimen (Source) Anatomical Collection Method Collection Time Re ceived Time Location / / Volume Laterality 06/21/2002 6:11 PM FORENSIC PSYCHOLOGIST Narrative 06/22/2002 12:05 PM FORENSIC PSYCHOLOGIST 21-Jun-2002 18:11:00 ??Exam: Chest-PICC Indications: RIGHT PICC TIP PLACED ORIGINAL REPORT - 21-Jun-2002 19:03:00 Right PICC tip in RA. Cardiac enlargemen t. Electronically signed by: ?? Alivia Nur M.D. [phone] 21-Jun-2002 19:03 I have reviewed the films/images and agr ee with the above interpretation. Electronically signed by: ?? Candida Roberto MD [phone] 22-Jun-2002 12:05 Procedure Note Hiram Roberto M.D. [...] interpretation. Electronically signed by: Candida Roberto MD [phone] 22-Jun-2002 12:05 Jamal Camejo M.D. IMG DIAGNOSTIC IMAGING PROCE SUKUMAR Hx general Pathology Report (06/21/2002 4:19 PM FORENSIC PSYCHOLOGIST) Specimen Anatomical Collection Method Collection Time Receive d Time (Source) Location / / Volume Laterality 06/21/2002 4:19 PM 2 4:19 FORENSIC PSYCHOLOGIST PM FORENSIC PSYCHOLOGIST Narrative [facility] - 06/21/2002 4:19 PM FORENSIC PSYCHOLOGIST 21Jun2002 General Biopsy Primary Physician: ?Cheng navarro Jr., M.D. ?([id number]) Requested By: ? Florentin lindquist M.D. ?? TISSUE DESCRIPTION: ?? A1. Bulb/second portion duodenum sma ll bowel - (5 pieces 0.2 - 0.3 cm. in diameter). B1. Lower ?? third esophagus - (4 pieces 0.1 - 0. 2 cm. in diameter). ?? [id number] A1, B1 ?? DIAGNOSIS: ?? 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 ?? B) Esophagus, distal, endoscopic bio psy: ??Luminal fibrinoinflammatory exudate consistent with ?? nearby ulcer/erosion site, and hyper plastic cardiac-type mucosa. ??No fungi (GMS stain) or ?? viral inclusions are identified. ?? [id number] ?Rahel C. Chilo, M.D.:jnrain Procedure Note 11/11/2017 21Jun2002 General Biopsy Primary Physician: Jr Bailey Reyes M.D. ([id number]) Requested By: Florentin West M.D. TISSUE DESCRIPTION: A1. Bulb/second portion duodenum small bowel - (5 pieces 0.2 - 0.3 cm. in diameter). B1. Lower third esophagus - (4 pieces 0.1 - 0.2 c m. in diameter). [id number] A1, B1 DIAGNOSIS: A) Small bowel, duodenum, [...] City/State/ZIP Code Phon e Number [facility] - [address] [address] [facility] ECG 12 Lead (06/21/2002 10:38 AM FORENSIC PSYCHOLOGIST) Specimen (Source) Anatomical Collection Method Collection Time Re ceived Time Location / / Volume Laterality 06/21/2002 10:38 AM FORENSIC PSYCHOLOGIST [facility] RADIOLOGY SYSTEM - 06/21/2002 10:59 AM FORENSIC PSYCHOLOGIST 21Jun2002 10:38 VENTRICULAR RATE 64 Normal sinus rhythm Leftward axis When compared with ECG of 16-JUN-2002 21 :34, No significant change was found [id number]^EVERT ??^JONATHAN Procedure Note Jonathan Darden M.D. - 11/13/2017Formatt ing of this note might be different from the original. 21Jun2002 10:38 VENTRICULAR RATE 64 Normal sinus rhythm Leftward axis When compared with ECG of 16-JUN-2002 21 :34, No significant change was found [id number]^EVERT PIKE Historical Provider ECG ORDERABLES Performing Organization Address City/[facility]/ZIP Code Phon e Number HX [facility] RADIOLOGY SYSTEM [address] [place] [address], U SA [address] Orbits and Sella without IV Contrast (06/21/2002 8:27 AM FORENSIC PSYCHOLOGIST) Anatomical Region Laterality Modality Head N/A Computed Tomography Specimen (Source) Anatomical Collection Method Collection Time Re ceived Time Location / / Volume Laterality 06/21/2002 8:27 AM FORENSIC PSYCHOLOGIST Narrative 06/21/2002 11:48 AM FORENSIC PSYCHOLOGIST 21-Jun-2002 08:27:00 ??Exam: CT PF/Sella/Orbit wo Indications: [...] by: Rubi Umanzor MD. [phone] 21-Jun-2002 11:48 eZb Cotton M.D. IMMike CT PROCEDURES Echocardiogram (06/20/2002 8:35 AM FORENSIC PSYCHOLOGIST) Anatomical Region Laterality Modality Echocardiography Specimen (Source) Anatomical Collection Method Collection Time Re ceived Time Location / / Volume Laterality 06/20/2002 8:35 AM FORENSIC PSYCHOLOGIST Historical Provider CV ECHO PROCEDURES DX Outside Image Interpretation (06/20/2002 6:32 AM FORENSIC PSYCHOLOGIST) Anatomical Region Laterality Modality N/A Radiographic Imaging Specimen (Source) Anatomical Collection Method Collection Time Re ceived Time Location / / Volume Laterality 06/20/2002 6:32 AM FORENSIC PSYCHOLOGIST Narrative 06/24/2002 10:40 AM FORENSIC PSYCHOLOGIST 20-Jun-2002 06:32:00 ??Exam: Interp of OUTSIDE X-RAY [...] of the examination is negative. ?? (06-24-02) ??(666) Electronically signed by: ?? Sena Tsang ??24-Jun-2002 [...] Remainder of the examination is negative. (06-24-02) (279) Electronically signed by: Sena Tsang 8-24-Jun-2002 10: 40 Historical Provider IMG DIAGNOSTIC IMAGING LINDSEY Carter general Pathology Report (06/19/2002 10:26 AM FORENSIC PSYCHOLOGIST) Specimen Anatomical Collection Method Collection Time Receive d Time (Source) Location / / Volume Laterality 06/19/2002 10:26 06/19/2002 AM FORENSIC PSYCHOLOGIST 10:26 AM FORENSIC PSYCHOLOGIST Narrative [facility] - 06/19/2002 10:26 AM FORENSIC PSYCHOLOGIST 19Jun2002 Surgical Pathology Requested By: ? Zeb Cotton M.D. ?([id number]) ? Melecio Alfaro M.D. ?? TISSUE DESCRIPTION: ?? Tissue from brain (right frontal reg ion--2.0 x 2.0 x 0.3 cm in aggregate and 4.0 x 3.0 x 1.0 ?? cm in aggregate) ?? [id number] A1, A2, A3, A4, A5, A6 ?? [...] Pathology Requested By: Zeb Cotton M.D. ( [id number]) Melecio Alfaro M.D. TISSUE DESCRIPTION: Tissue from brain (right frontal region --2.0 x 2.0 x 0.3 cm in aggregate and 4.0 x 3.0 x 1.0 cm in aggregate) [id number] A1, A2, A3, A4, A5, A6 DIAGNOSIS: Brain, right frontal, biopsy: Organizin g bacterial abscess. Gram stain demonstrates coccal organisms. Stains for fungi are negativ e. Stains for mycobacteria (auramine rhodamine) show rare bacilli that may represent contami nants. [id number] Zuleyma Millard M.D.:mirela PRELIMINARY FROZEN SECTION CONSULTATION : Organizing abscess. Hold over. Zeb Cotton M.D. LAB PATHOLOGY/CYTOLOGY ORDER SHON Performing Organization Address [facility] Phon e Number [facility] - [address] [place] [address] [facility] HX phys Surg Bld Order (06/18/2002 10:00 PM FORENSIC PSYCHOLOGIST) Specimen Anatomical Collection Method Collection Time Receive d Time (Source) Location / / Volume Laterality 06/18/2002 10:00 06/18/2002 PM FORENSIC PSYCHOLOGIST 10:55 PM FORENSIC PSYCHOLOGIST Narrative [facility] - 06/18/2002 10:00 PM FORENSIC PSYCHOLOGIST 18 Jun 2002 ?[id number] ? Ro ?22:00 ?? Phys Surg Bld Order: ?ABO/RH ? O POS ?Antibody Screen ?N eg ? Procedure Note 12/06/2017 18 Jun 2002 [id number] Ro 22:00 Phys Surg Bld Order: ABO/RH O POS Antibody Screen Neg Historical Provider LAB HISTORICAL ORDERS Performing Organization Address [facility] Phon e Number [facility] - [address] [place] [address] [facility] US Abdomen Complete (06/18/2002 9:39 AM FORENSIC PSYCHOLOGIST) Anatomical Region Laterality Modality Abdomen N/A Ultrasound Specimen (Source) Anatomical Collection Method Collection Time Re ceived Time Location / / Volume Laterality 06/18/2002 9:39 AM FORENSIC PSYCHOLOGIST Narrative 06/18/2002 12:23 PM FORENSIC PSYCHOLOGIST 18-Jun-2002 09:39:00 ??Exam: US Abdomen Complete Indications: r/o metastases^[id number] ?? do2 -300 ORIGINAL REPORT - 18-Jun-2002 [...] left measuring 10.4cm and the right 10.2cm [id number]. Normal caliber abdo deion aorta. Examination is otherwise negative. ?? ELECTRONIC IMAGES ONLY--NO FILMS Ind: 771.705 ?? Dia.120 ?? Electronically signed by: ?? Arvin Bland M.D. [phone] [id number]) 18-Jun-20 02 12:23 Procedure Note Chava Bland M.D. - 11/24/2017Formatti ng of this note might be different from the original. 18-Jun-2002 09:39:00 Exam: US Abdomen Co mplete Indications: r/o metastases^[id number] do2-30 0 ORIGINAL REPORT - 18-Jun-2002 12:23:00 [...] left measuring 10.4cm and the right 10.2cm [id number]. Normal caliber abdominal aorta. Examination is otherwise negative. ELECTRONIC IMAGES ONLY--NO FILMS Ind: 771.705 Dia.120 Electronically signed by: Arvin Bland M.D. [phone] ([id number]) 18-Jun-20 02 12:23 Zacarias L Ry M.D. IMG US PROCEDURES MR Cervical And Thoracic Without And With Iv Contrast (06/18/2002 8:24 AM FORENSIC PSYCHOLOGIST) Anatomical Region Laterality Modality Magnetic Resonance Specimen (Source) Anatomical Collection Method Collection Time Re ceived Time Location / / Volume Laterality 06/18/2002 8:24 AM FORENSIC PSYCHOLOGIST Narrative 06/18/2002 10:14 AM FORENSIC PSYCHOLOGIST 18-Jun-2002 08:24:00 ??Exam: MRI CSP & THSP [...] PROCEDURES ECG 12 Lead (06/16/2002 9:34 PM FORENSIC PSYCHOLOGIST) Specimen (Source) Anatomical Collection Method Collection Time Re ceived Time Location / / Volume Laterality 06/16/2002 9:34 PM FORENSIC PSYCHOLOGIST [facility] RADIOLOGY SYSTEM - 06/17/2002 5:48 AM [facility] 16Jun2002 21:34 VENTRICULAR RATE 61 Normal sinus rhythm Left axis deviation No previous ECGs available [id number]^ALVERTO ??^ACE Procedure Note Ace Ragland M.D. - 11/13/2017Forma tting of this note might be different from the original. 16Jun2002 21:34 VENTRICULAR RATE 61 Normal sinus rhythm Left axis deviation No previous ECGs available [id number]^ALVERTO MOISE^ACE Historical Provider ECG ORDERABLES Performing Organization Address City/State/ZIP Code Phon e Number [facility] RADIOLOGY SYSTEM [address] [place] [address], U SA DX Chest AP or PA and Lateral 2 Views (06/16/2002 5:55 PM FORENSIC PSYCHOLOGIST) Anatomical Region Laterality Modality Chest N/A Radiographic Imaging Specimen (Source) Anatomical Collection Method Collection Time Re ceived Time Location / / Volume Laterality 06/16/2002 5:55 PM FORENSIC PSYCHOLOGIST Narrative 06/17/2002 2:58 PM [facility] 16-Jun-2002 17:55:00 ??Exam: Chest-- 2 Views [...] Head without IV Contrast (06/16/2002 4:28 PM FORENSIC PSYCHOLOGIST) Anatomical Region Laterality Modality Head N/A Computed Tomography Specimen (Source) Anatomical Collection Method Collection Time Re ceived Time Location / / Volume Laterality 06/16/2002 4:28 PM FORENSIC PSYCHOLOGIST Narrative 06/17/2002 9:16 AM FORENSIC PSYCHOLOGIST 16-Jun-2002 16:28:00 ??Exam: CT Head wo Indications: [...]
--- OUTSIDE RECORDS SUMMARY | 2022-05-13 07:48 | XMS_ITS | Encounter Summary ---
:1940 Author Organization [facility] Address [address] [place] [address] Care Team Providers Name Role Phone Harish Silver MD Primary Care Provider Encounter Details Date Type Department Care Team Description 03/30/2022 Treatment [facility] Sebastian Jimenez MD [address] [place] [address] [place], [place] [phone] (Wo rk) Social History Tobacco Use Types [...] Name: David Castro : 1940 Chart #: [id number] Sex: M This patient was personally seen for a complete visit as part of routine monthly dialysis care. A review of the dialysis treatment, blood pressure, estimated dry weight, and recent lab values was made.These were discussed with the patient and staff as necessary. YARD COUPLER: Sebastian Charles MD LOCATION: [phone] SCHEDULE: No Routine Schedule Subjective Tolerating dialysis [...] HE walked 5 miles with >10,000 steps [id number] already this morning. He has no orthopnea or SOB, wt is lower, dialysis is going very well, and he has his liquid diet figured out and is tolerating protein powder and liquicel. He has no concerns at all today and is very pleased since feeling much better after IV iron infusion at the [facility] that we had arranged. 12/22/21: Georges was unfortunately hospitalized twice since our last visit. He went home and was very weak after I saw him last month on 12/01, went to ER and was admitted at [facility] from 12/02-12/08, had empyemaand chest tube was [...] on filedocumented in this encounter Care Teams Retail Coverage Merchandiser Lead Relationship Specialty Start Date End Date Harish Silver MD PCP - General 05/17/19 [address] [place] [id number] documented as of this encounter
--- OUTSIDE RECORDS SUMMARY | 2022-05-13 07:48 | XMS_ITS | Encounter Summary ---
:1940 Author Organization [facility] Address [address] [place] [address] Care Team Providers Name Role Phone Harish Silver MD Primary Care Provider Encounter Details Date Type Department Care Team Description 12/22/2021 Treatment [facility] Sebastian Jimenez MD [address] [place] [address] [place], [place] [phone] (Wo rk) Social History Tobacco Use Types [...] Name: David Castro : 1940 Chart #: [id number] Sex: M This patient was personally seen for a complete visit as part of routine monthly dialysis care. A review of the dialysis treatment, blood pressure, estimated dry weight, and recent lab values was made.These were discussed with the patient and staff as necessary. EXCELLENCE CONSULTANT: Sebastian Charles MD LOCATION: [phone] SCHEDULE: No Routine Schedule Subjective 12/22/21: Georges was unfortunately hospitalized twice since our last visit. He went home and was very weak after I saw him last month on 12/01, went to ER and was admitted at [facility] from 12/02-12/08, had empyemaand chest tube was [...] Feeding tube was considered in hospital at [facility] but he declined. He is having liquid [...] fluid as this was not done at [facility] as it was thought to be unlikely [...] on filedocumented in this encounter Care Teams Imaging Assistant Relationship Specialty Start Date End Date Harish Silver MD PCP - General 05/17/19 [address] [place] [address] documented as of this encounter
--- OUTSIDE RECORDS SUMMARY | 2022-05-13 07:48 | XMS_ITS | Encounter Summary ---
:1940 Author Organization [facility] Address [address] [place] [address] Care Team Providers Name Role Phone Unavailable [...] How often do you attend taoism or samaritan More than 4 time s per year 04/11/2022 services? Do you belong to any clubs or organizations Yes 04/11/2022 such as taoism groups, unions, fraternal or [...] slept in a nursing home (including now)? Sex Assigned at Date Recorded Male 04/11/2022 12:05 PM CDT documented as of this encounter Plan of Treatment Not on filedocumented as of this encounter Visit Diagnoses Not on filedocumented in this encounter
--- OUTSIDE RECORDS SUMMARY | 2022-05-13 07:48 | XMS_ITS | Encounter Summary ---
:1940 Author Organization [facility] Address [address] [place] [address] Care Team Providers Name Role Phone Harish Silver MD Primary Care Provider Encounter Details Date Type Department Care Team Description 04/22/2022 Orders Only [facility] f Sebastian Mohan MD [phone] [place] [address] [place], [place] [phone] (Wo rk) Social History Tobacco Use [...] Associated Diagnosis Comme nts URINE CLEARANCE Routine 04/22/2022 Results for this procedure are i n the results section . PDF CHEMISTRY Routine 04/22/2022 Results for th is procedure are i n the results section . PD ADEQUACY Routine 04/22/2022 Results for thi s procedure are i n the results section . PD ADEQUACY Routine 04/22/2022 Results for thi s procedure are i n the results section . PATIENT INFORMATION Routine 04/22/2022 Results for this procedure are i n the results section . PATIENT INFORMATION Routine 04/22/2022 Results for this procedure are i n the results section . PATIENT INFORMATION Routine 04/22/2022 Results for this procedure are i n the results section . TRACE ELEMENTS Routine 04/22/2022 Results for t his procedure are i n the results section . HEMATOLOGY Routine 04/22/2022 Results for thi s procedure are i n the results section . CHEMISTRY Routine 04/22/2022 Results for thi s procedure are i n the results section . documented in this encounter Results (ABNORMAL) TRACE ELEMENTS (04/22/2022) athologist Signature Aluminum 12 (H) 0 - 10 APS SPECTRA mcg/L [facility] Comment: This test was developed and its performa nce characteristics determined by [facility]. It has not been cleared or approved by the FDA. The laboratory is regulated under CLIA a s qualified to perform high complexity testing. This test is used fo r clinical purposes. It should not be regarded as investigational or fo r research. Test performed at [facility], [address] [place] [address]. Telephone . [facility] [employer] or: Steve Younger MD. Specimen (Source) Anatomical Collection Method Collection Time Re ceived Time Location / / Volume Laterality 04/22/2022 04/26/2022 8:56 AM CDT Narrative APS SPECTRA [facility] - 04/26/2022 Unless otherwise specified, test(s) performed at: [facility], [address] [place] [address], [place] [address] SUPERVISOR TOY ASSEMBLY: Dariel Doyle M.D., Ph.D For any questions, please call customer service at FREQUENCY:MONTHLY Resulting Agency Comment Specimen source: Serum Sebastian Charles MD LAB BLOOD ORDERABLES Performing Organization Address City/State/ZIP Code Phon e Number APS SPECTRA [facility] (ABNORMAL) HEMATOLOGY (04/22/2022) athologist Signature WBC 4.92 4.80 - APS SPECTRA 10.80 [facility] 1000/mcL RBC 2.68 (L) 4.70 - 6.10 APS SPECTRA mill/mcL [facility] Hemoglobin 8.4 (L) 14.0 - 18.0 APS SPECTRA g/dL [facility] Comment: Verified by repeat analysis. Hemoglobin x 3 25.2 (L) 42.0 - 54.0 % APS SPECTRA [facility] Hematocrit 28.0 (L) 42.0 - 52.0 % [facility]PS SPECT[facility] [place] Comment: Verified by repeat analysis. MCV 105 (H) 80 - 100 fl APS SPECTRA [facility] MCH 31.4 (H) 27.0 - 31.0 pg APS SPECTRA [facility] [place] MCHC 30.0 30.0 - 36.0 g/dL APS SPECTRA K [facility] RDW 14.8 (H) 11.5 - 14.5 % APS SPECTRA [facility] N Neutrophils 75.9 (H) 40.0 - 75.0 % APS SPECTRA [place] [facility] Lymphocytes Relative 8.8 (L) 19.0 - 48.0 % APS S PECTRA [facility] Monocytes 7.3 3.0 - 10.0 % APS SPECTRA [facility] Eosinophils Relative 5.4 0.0 - 7.0 % APS SPE CTRA [facility] Basophils Relative 1.1 0.0 - 1.5 % APS SPECT RA [facility] JUAN ANTONIO 1.5 0.0 - 4.0 % APS SPECTRA [facility] Specimen (Source) Anatomical Collection Method Collection Time Re ceived Time Location / / Volume Laterality 04/22/2022 04/23/2022 4:45 AM CDT Narrative APS SPECTRA [facility] - 04/23/2022 Unless otherwise specified, test(s) performed at: [facility], [address] [place] [address], [place] [address] SUPERVISOR TOY ASSEMBLY: Dariel Doyle M.D., Ph.D For any questions, please call customer service at FREQUENCY:MONTHLY Resulting Agency Comment Specimen source: Blood Sebastian Charles MD LAB BLOOD ORDERABLES Performing Organization Address City/State/ZIP Code Phon e Number APS SPECTRA [facility] (ABNORMAL) URINE CLEARANCE (04/22/2022) Analysis Performed At Patho logist Time Signature Urea Nitrogen, 457 mg/dL APS SPECTRA Urine Timed [facility] Urea Nitrogen, 5.9 (L) 12.0 - APS SPECTRA Urine 24 Hr 20.0 g/24 [facility] hr Urea Clear, 9.6 (L) 64.0 - APS SPECTRA Urine Norm 99.0 [facility] mL/min Urea Clearance, 10.6 (L) 64.0 - APS SPECTRA Urine 99.0 [facility] mL/min Urea Clear, 107 L/wk APS SPECTRA Urine Norm Wkly [facility] Creatinine, 85.9 mg/dL APS SPECTRA Urine Timed [facility] Creatinine, 24H 1.1 0.7 - 1.8 APS SPECTRA Ur g/24 hr [facility] Creatinine 22.5 mL/min APS SPECTRA Clear, Urine [facility] Creat Clear, 20.4 (L) 94.0 - APS SPECTRA Urine Norm 122.0 [facility] mL/min Creat Clear, 226.8 L/wk APS SPECTRA Urine Wkly [facility] Specimen (Source) Anatomical Collection Method Collection Time Re ceived Time Location / / Volume Laterality 04/22/2022 04/23/2022 4:41 AM CDT Resulting Agency Comment Specimen source: Urine Sebastian Charles MD LAB URINE ORDERABLES Performing Organization Address City/State/[facility] Code Phon e Number APS SPECTRA [facility] PD ADEQUACY (04/22/2022) athologist Signature Kt/V, Residual 2.51 APS SPECTRA [facility] Creat Clear, 206 L/wk APS SPECTRA Urine Nor Wkly [facility] Specimen (Source) Anatomical Collection Method Collection Time Re ceived Time Location / / Volume Laterality 04/22/2022 04/23/2022 4:41 AM CDT Narrative APS SPECTRA [facility] - 04/23/2022 Unless otherwise specified, test(s) performed at: [facility], [address] [place] [address], [place] [address] SUPERVISOR TOY ASSEMBLY: Dariel Doyle M.D., Ph.D For any questions, please call customer service at FREQUENCY:MONTHLY Resulting Agency Comment Specimen source: Urine Sebastian Charles MD LAB BODY FLUIDS AND STOOLS O RDERABLES Performing Organization Address [facility] Phon e Number APS SPECTRA [facility] PDF CHEMISTRY (04/22/2022) athologist Signature Urea Nitrogen, 1,933.2 mg/24 hr APS SPECTRA PDF 24 Hr [facility] Urea Nitrogen, 31 mg/dL APS SPECTRA PDF Timed [facility] Comment: [...] PECTRA [facility] Urea Clear, Tot Norm Wkly 141 L/wk APS SPECTRA [facility] Urea Clear, PDF Norm Wkly 34 L/wk APS SPECTRA [facility] Creatinine, PDF Timed Uncor 1.9 mg/dL AP S SPECTRA [facility] Comment: A reference range for this assay has not been established for body fluids. If blood results are available f or this analyte, results may be interpreted in comparison to those resul ts. Creatinine, PDF Timed Cor 1.8 mg/dL APS SPECTRA [facility] Comment: Creatinine values have been corrected fo r glucose interference. [facility] glucose correction factor f or creatinine is 0.0002. Creatinine, PDF 24 Hr 112.2 mg/24 hr APS SPEC TRA [facility] Creatinine Clear, PDF 2.3 mL/min APS SPEC TRA [facility] Creatinine Clear, PDF Norm 2.0 mL/min APS SPECTRA [facility] Creat Clear, PDF Norm Wkly 23 L/wk APS SPECTRA [facility] Creat Clear, Tot Wkly 250 L/wk APS SPEC TRA [facility] Glucose, PDF Timed 654 mg/dL APS SPECTRA [facility] Comment: A reference range for this assay has not been established for body fluids. If blood results are available f or this analyte, results may be interpreted in comparison to those resul ts. Specimen (Source) Anatomical Collection Method Collection Time Re ceived Time Location / / Volume Laterality 04/22/2022 04/23/2022 8:15 AM CDT Resulting Agency Comment Specimen source: PD Fluid Sebastian Charles MD LAB BODY FLUIDS AND STOOLS O RDERABLES Performing Organization Address City/State/ZIP Code Phon e Number APS SPECTRA [facility] PD ADEQUACY (04/22/2022) P athologist Signature Kt/V, Total 3.31 APS SPECTRA [facility] Comment: KDOQI Guidelines recommend weekly Kt/V o f >=1.7 for adults. Kt/V, Peritoneal 0.80 APS SPECTRA [facility] Creat Clear, Tot Norm Wkly 226 L/wk APS SPECTRA [facility] Creat Clear, PDF Norm Wkly 20 L/wk APS SPECTRA [facility] PNA, Normalized 1.02 g/kg/day APS SPECTRA [facility] PNA 75 g/day APS SPECTRA [facility] Specimen (Source) Anatomical Collection Method Collection Time Re ceived Time Location / / Volume Laterality 04/22/2022 04/23/2022 8:15 AM CDT Resulting Agency Comment Specimen source: PD Fluid Sebastian Charles MD LAB BODY FLUIDS AND STOOLS O RDERABLES Performing Organization Address City/State/ZIP Code Phon e Number APS SPECTRA [facility] PATIENT INFORMATION (04/22/2022) P athologist Signature Urea Volume 42.6 L APS SPECTRA Distribution [facility] (Zoraida) Specimen (Source) Anatomical Collection Method Collection Time Re ceived Time Location / / Volume Laterality 04/22/2022 04/23/2022 8:15 AM CDT Narrative APS SPECTRA [facility] - 04/23/2022 Unless otherwise specified, test(s) performed at: [facility], [address] [place] [address], [place] [address] SUPERVISOR TOY ASSEMBLY: Dariel Doyle M.D., Ph.D For any questions, please call customer service at FREQUENCY:MONTHLY Resulting Agency Comment Specimen source: PD Fluid Sebastian Charles MD LAB BLOOD ORDERABLES Performing Organization Address City/State/ZIP Code Phon e Number APS SPECTRA [facility] (ABNORMAL) Spectrae Chemistry (04/22/2022) Patholo gist Method Time Signature BUN 39 (H) 6 - 19 APS SPECTRA mg/dL [facility] Creatinine 3.45 (H) 0.60 - APS SPECTRA 1.30 mg/dL [facility] BUN/Creatinine 11.3 10.0 - APS SPECTRA Ratio 20.0 [facility] Sodium 139 136 - 145 APS SPECTRA mEq/L [facility] Potassium 4.6 3.5 - 5.1 APS SPECTRA mEq/L [facility] Chloride 105 96 - 108 APS SPECTRA mEq/L [facility] Bicarbonate 30 20 - 31 APS SPECTRA (CO2) mEq/L [facility] Comment: Please note change in reference range. Calcium 8.3 (L) 8.7 - 10.4 mg/dL APS SPECTRA K [facility] Comment: Please note change in reference range. Corrected Calcium 9.1 8.7 - 10.4 mg/dL APS S PECTRA [facility] Comment: Corrected Calcium is not equivalent to m easured Ionized Calcium. Phosphorus 2.4 (L) 2.6 - 4.5 mg/dL APS SPECTRA K [facility] Calcium Phosphorus Product 20 0 - 54 APS SPECTRA [facility] Calcium Phosporus Product, Cor 22 0 - 54 APS SPECTRA [facility] Albumin 3.0 (L) 3.5 - 5.2 g/dL APS SPECTRA [facility] [place] Iron 19 (L) 45 - 160 mcg/dL APS SPECTRA [facility] UIBC 235 155 - 355 mcg/dL APS SPECTRA K [facility] TIBC 254 185 - 515 mcg/dL APS SPECTRA [facility] Iron Saturation (TSat) 7 (L) 20 - 55 % APS SPE CTRA [facility] Specimen (Source) Anatomical Collection Method Collection Time Re ceived Time Location / / Volume Laterality 04/22/2022 04/23/2022 4:57 AM CDT Narrative APS SPECTRA [facility] - 04/23/2022 Unless otherwise specified, test(s) performed at: [facility], [address] [place] [address], [place] [address] SUPERVISOR TOY ASSEMBLY: Dariel Doyle M.D., Ph.D For any questions, please call customer service at FREQUENCY:MONTHLY Resulting Agency Comment Specimen source: Serum Sebastian Charles MD LAB BLOOD ORDERABLES Performing Organization Address City/[facility] Phon e Number APS SPECTRA [facility] PATIENT INFORMATION (04/22/2022) athologist Signature Patient BSA 1.91 sq. M. APS SPECTRA [facility] Comment: Normalized values are calculated using t he patient's actual BSA and normalized to the average BSA of 1.73m2. Specimen (Source) Anatomical Collection Method Collection Time Re ceived Time Location / / Volume Laterality 04/22/2022 04/23/2022 4:57 AM CDT Narrative APS SPECTRA [facility] - 04/23/2022 Unless otherwise specified, test(s) performed at: [facility], [address] [place] [address], [place] [address] SUPERVISOR TOY ASSEMBLY: Dariel Doyle M.D., Ph.D For any questions, please call customer service at FREQUENCY:MONTHLY Resulting Agency Comment Specimen source: PD Fluid Sebastian Charles MD LAB BLOOD ORDERABLES Performing Organization Address City/[facility] Phon e Number APS SPECTRA [facility] PATIENT INFORMATION (04/22/2022) athologist Signature Patient Weight 77.7 APS SPECTRA [facility] Patient Height 172.0 APS SPECTRA [facility] Amputee Status NO APS SPECTRA [facility] Amputee Parts NONE APS SPECTRA [facility] Drain volume, 6,236 APS SPECTRA PDF [facility] Collection 24.0 APS SPECTRA Time, PDF [facility] Urine Volume 1,300 APS SPECTRA [facility] Collection 24.0 APS SPECTRA Interval, Ur [facility] Specimen (Source) Anatomical Location Collection Method / Collectio n Time Received Time / Laterality Volume 04/22/2022 04/22/2022 Narrative APS SPECTRA [facility] - 04/23/2022 Unless otherwise specified, test(s) performed at: [facility], [address] [place] [address], [place] [address] SUPERVISOR TOY ASSEMBLY: Dariel Doyle M.D., Ph.D For any questions, please call customer service at FREQUENCY:MONTHLY Resulting Agency Comment Specimen source: PD Fluid Sebastian Charles MD LAB BLOOD ORDERABLES Performing Organization Address City/State/ZIP Code Phon e Number APS SPECTRA [facility] documented in this encounter Visit Diagnoses Not on filedocumented in this encounter Care Teams Inside Sales Executive Relationship Specialty Start Date End Date Harish Silver MD PCP - General 05/17/19 [address] [place] [place] [address] documented as of this encounter
--- OUTSIDE RECORDS SUMMARY | 2022-05-13 07:48 | XMS_ITS | Encounter Summary ---
:1940 Author Organization [facility] Address [address] [place] [address] Care Team Providers Name Role Phone Harish Silver MD Primary Care Provider Encounter Details Date Type Department Care Team Description 01/26/2022 Orders Only [facility] O f Sebastian Mohan MD [address] [place] [address] [place], [place] [phone] (Wo rk) Social History Tobacco Use [...] in this encounter Results (ABNORMAL) HEMATOLOGY (01/26/2022) [facility] gist Method Time Signature WBC 8.03 [...] 01/28/2022 Unless otherwise specified, test(s) performed at: [email or web address], [address] [place], [place] [id number] RECRUITING TEAM LEAD: Steve Younger M.D. For any questions, please call customer service at FREQUENCY:MONTHLY Resulting Agency Comment Specimen source: Blood Sebastian Charles MD LAB BLOOD ORDERABLES Performing Organization Address City/State/ZIP Code Phon e Number APS SPECTRA [facility] (ABNORMAL) Spectrae Chemistry (01/26/2022) [facility] gist Method Time Signature BUN 51 [...] 01/28/2022 Unless otherwise specified, test(s) performed at: [email or web address], [address] [place] [address] RECRUITING TEAM LEAD: Steve Younger M.D. For any questions, please call customer service at FREQUENCY:MONTHLY Resulting Agency Comment Specimen source: Serum Sebastian Charles MD LAB BLOOD ORDERABLES Performing Organization Address City/State/ZIP Code Phon e Number APS SPECTRA [facility] documented in this encounter Visit Diagnoses Not on filedocumented in this encounter Care Teams Water Softener Servicer And Installer Relationship Specialty Start Date End Date Harish Silver MD PCP - General 05/17/19 [place] [address] documented as of this encounter
--- OUTSIDE RECORDS SUMMARY | 2022-05-13 07:48 | XMS_ITS | Encounter Summary ---
:1940 Author Organization [facility] Address [address] [place] [address] Care Team Providers Name Role Phone Harish Silver MD Primary Care Provider Encounter Details Date Type Department Care Team Description 03/02/2022 Orders Only [facility] f Sebastian Mohan MD [phone] [place] [address] [place], [place] [phone] (Wo rk) Social History Tobacco Use [...] 03/03/2022 Unless otherwise specified, test(s) performed at: [facility], [address] [place] [address], [place] [address] ELECTROCARDIOGRAPH REPAIRER: Dariel Doyle M.D., Ph.D For any questions, [...] MD LAB BLOOD ORDERABLES Performing Organization Address [facility] Code Phon e Number APS SPECTRA [...] 03/03/2022 Unless otherwise specified, test(s) performed at: [facility], [address] [place] [address], [place] [address] ELECTROCARDIOGRAPH REPAIRER: Dariel Doyle M.D., Ph.D For any questions, please call customer service at FREQUENCY:MONTHLY Resulting Agency Comment Specimen source: PD Fluid Sebastian Charles MD LAB BLOOD ORDERABLES Performing Organization Address City/[facility]/ZIP Code Phon e Number APS SPECTRA [...] have been corrected fo r glucose interference. [facility] glucose correction factor f or creatinine is [...] 03/03/2022 Unless otherwise specified, test(s) performed at: [facility], [address] [place] [address] darlin [facility] [address] ELECTROCARDIOGRAPH REPAIRER: Dariel Doyle M.D., Ph.D For any questions, [...] 03/03/2022 Unless otherwise specified, test(s) performed at: [facility], [address] [place] [address], [place] [address] ELECTROCARDIOGRAPH REPAIRER: Dariel Doyle M.D., Ph.D For any questions, [...] 03/03/2022 Unless otherwise specified, test(s) performed at: [facility], [address] [place] [address], [place] [address] ELECTROCARDIOGRAPH REPAIRER: Dariel Doyle M.D., Ph.D For any questions, please call customer service at FREQUENCY:MONTHLY Resulting Agency Comment Specimen source: Blood Sebastian Charles MD LAB BLOOD ORDERABLES Performing Organization Address City/[facility] Phon e Number APS SPECTRA [facility] (ABNORMAL) Spectrae Chemistry (03/02/2022) P athologist Signature PTH 263 (H) 16 - 80 APS SPECTRA pg/mL [facility] Specimen (Source) Anatomical Collection Method Collection Time Re ceived Time Location / / Volume Laterality 03/02/2022 03/03/2022 2:44 AM CDT Narrative APS SPECTRA [facility] - 03/03/2022 Unless otherwise specified, test(s) performed at: [facility], [address] [place] [address], [place] [address] ELECTROCARDIOGRAPH REPAIRER: Dariel Doyle M.D., Ph.D For any questions, please call customer service at FREQUENCY:MONTHLY Resulting Agency Comment Specimen source: Plasma Sebastian Charles MD LAB BLOOD ORDERABLES Performing Organization Address City/[facility] Phon e Number [...] 03/03/2022 Unless otherwise specified, test(s) performed at: [facility], [address] [place], [place] [address] [address] ELECTROCARDIOGRAPH REPAIRER: Dariel Doyle M.D., Ph.D For any questions, please call customer service at FREQUENCY:MONTHLY Resulting Agency Comment Specimen source: PD Fluid Sebastian Charles MD LAB BLOOD ORDERABLES Performing Organization Address City/State/ZIP Code Phon e Number APS SPECTRA [facility] documented in this encounter Visit Diagnoses Not on filedocumented in this encounter Care Teams Twister Doffer Relationship Specialty Start Date End Date Harish Silver MD PCP - General 05/17/19 [facility] [address] [place] [address] documented as of this encounter
--- OUTSIDE RECORDS SUMMARY | 2022-05-13 07:48 | XMS_ITS | Encounter Summary ---
:1940 Author Organization [facility] Address [address] [place] [address] Care Team Providers Name Role Phone Harish Silver MD Primary Care Provider Encounter Details Date Type Department Care Team Description 05/04/2022 Treatment [facility] Sebastian Jimenez MD [address] [place] [address] [place], [place] [phone] (Wo rk) Social History Tobacco Use Types Packs/Day Years Used Date Smoking Tobacco: Never Alcohol Use Standard Drinks/Week Comments No 0 (1 standard drink = 0.6 oz pure alcoho l) Sex Assigned at Date Recorded Not on file documented as of this encounter Miscellaneous Notes Dialysis Note - Sebastian Charles MD - 05/04/2022 11:07 AM CDT Date: May 04, 2022 Patient Name: David Castro : 1940 Chart #: [id number] Sex: M This patient was personally seen for a complete visit as part of routine monthly dialysis care. A review of the dialysis treatment, blood pressure, estimated dry weight, and recent lab values was made.These were discussed with the patient and staff as necessary. HARDWARE TECHNICIAN: Sebastian Charles MD LOCATION: [phone] SCHEDULE: No Routine Schedule Subjective Tolerating dialysis well. 05/04/22: Georges was hospitalized at [facility] , had coffee ground emesis and acute on chronic anemia, had EGD showing esophageal ulceration with clip placed and emesis stopped and no further bleeding occurred. BP lower than his usual with anemia, iron was very low and he got first of two feraheme infusions yesterday at [facility] and will have another on Monday. He feels much better after the iron infusion. His BP is in normal range. He can walk like usual again without light-headedness. He isback to his usual diet with pureed soup and he is taking about 100 grams of protein per day we calculated. PD going well, residual function was higher than expected on last 24hr urine and PD providing similar clearance. Aluminum lvl was elevated on Sucralfate therapy, he remains on this and has no symptoms of aluminum toxicity but we are repeating this level today and will need to stop sucralfate if level is still elevated. 03/30/22: Georges is doing great. He feels [...] HE walked 5 miles with >10,000 steps [id number] already this morning. He has no orthopnea or SOB, wt is lower, dialysis is going very well, and he has his liquid diet figured out and is tolerating protein powder and liquicel. He has no concerns at all today and is very pleased since feeling much better after IV iron infusion at the [facility] that we had arranged. 12/22/21: Georges was unfortunately hospitalized twice since our last visit. He went home and was very weak after I saw him last month on 12/01, went to ER and was admitted at [facility] from 12/02-12/08, had empyemaand chest tube was [...] by mouth once a day. with dinner docusate sodium 100 mg tablet Take 1 tablet by mouth twice a day as needed. - for constipation gentamicin 0.1% cream Apply a small amount [...] made. Treatment and Adequacy Assessment BUN mg/dL 39 (04/22/22) 76 (03/30/22) 61 (03/02/22) CREATININE (MG/DL) IN SER/PLAS mg/dL 3.45 (04/22/22) 3.60 (03/30/22) 4.38 (03/02/22) KT/V, PERITONEAL L/wk 0.80 (04/22/22) 0.80 (03/02/22) 0.70 (11/10/21) KT/V, RESIDUAL L/wk 2.51 (04/22/22) 1.04 (03/02/22) 1.37 (11/10/21) Kt/V is adequate. Continue current prescription. Adequacy borderline, repeated and now residual function is much higher and unclear why this is or ifaccurate. BUN lower and Cr lower as well. We will repeat adequacy and keep on same prescription for now. Peritoneal Dialysis Access Assessment Placed on: 07/[address] Kaur No further leaking from PD cath site Anemia Assessment HEMOGLOBIN (G/DL) IN BLOOD g/dL 8.4 (04/22/22) 13.4 (03/30/22) 13.0 (03/02/22) WBC (BLOOD) 1000/mcL 4.92 (04/22/22) 6.97 (03/30/22) 7.30 (03/02/22) IRON SATURATION % 29 (01/26/22) 7 (12/22/21) 12 (12/01/21) FERRITIN ng/mL 61 (03/02/22) 306 (01/26/22) 66 (12/01/21) Hemoglobin is below goal. Iron Saturation is below goal. Ferritin is below goal. Will adjust SIRISHA and intravenous iron. Iron studies from hospital low, getting Feraheme at [facility] ordered by me x2 doses this week Nutritional and Metabolic Assessment ALBUMIN (G/DL) g/dL 3.0 (04/22/22) 3.3 (03/30/22) 3.4 (03/02/22) BICARBONATE (CO2) mEq/L 30 (04/22/22) 34 (03/30/22) 32 (03/02/22) POTASSIUM (MMOL/L) IN SER/PLAS mEq/L 4.6 (04/22/22) 3.5 (03/30/22) 4.0 (03/02/22) Sodium mEq/L 139 (04/22/22) 138 (03/30/22) 138 (03/02/22) 25 OH VITAMIN D ng/mL 37.5 (09/13/21) Albumin is below goal. Encourage high biological value protein intake. Oral nutritional supplement program. Potassium is at goal. He has now figured out liquid diet and tolerating liquid and powder protein and protein supplement and turkey ground into the soup and total intake is 100-110 gram of protein per day currently. I thinkalbumin lower this month related to hospital stay Bone and Mineral Metabolism Assessment CALCIUM mg/dL 8.3 (04/22/22) 8.5 (03/30/22) 8.9 (03/02/22) CALCIUM (MG/DL) CORRECTED FOR ALBUMIN IN SER/PLAS mg/dL 9.1 (04/22/22) 9.1 (03/30/22) 9.4 (03/02/22) CALCIUM PHOSPHORUS PRODUCT, COR 22 (04/22/22) 33 (03/30/22) 42 (03/02/22) PHOSPHATE (MG/DL) IN SER/PLAS mg/dL 2.4 (04/22/22) 3.6 (03/30/22) 4.5 (03/02/22) IPTH pg/mL 263 (03/02/22) 190 (12/01/21) 154 (09/22/21) Corrected calcium is at goal. Phosphorus is below goal. Intact PTH is at goal. Diet improved again, phos should come back up Cardiovascular Assessment Blood pressure reviewed and is acceptable. Continue same cardiovascular medications. Estimated dry weight is too low, will increase. Lower EDW by 1 kg Transplant Status Patient declined to be evaluated. He was evaluated on past, on hold for years, now advanced age and he has elected to not pursue any further given risks associated with transplant and his GI issues as well. Resuscitation Status Additional Comments: Doing better after hospital stay Getting IV iron course BP adequate EDW lowered by 1 kg Re-check aluminum level, if still elevated then stop Sucralfate and monitor level. He has no symptoms of neurotoxicty at this time or other symptoms like myalgias or joint pains. Anemia is from recent bleed and iron deficiency. No change in PD prescription at this time beside dry weight change Sebastian Charles MD [ Signed And locked electronically On 05/04/2022 at 11:14:14 AM ] Transcribed: Sebastian Charles ( 05/04/2022 ) documented in this encounter Plan of Treatment Not on filedocumented as of this encounter Visit Diagnoses Not on filedocumented in this encounter Care Teams Document Processing Specialist Relationship Specialty Start Date End Date Harish Silver MD PCP - General 05/17/19 [address] [place] [place] [address] documented as of this encounter
--- OUTSIDE RECORDS SUMMARY | 2022-05-13 07:48 | XMS_ITS | Encounter Summary ---
:1940 Author Organization [facility] Address [address] [place] [address] Care Team Providers Name Role Phone Harish Silver MD Primary Care Provider Encounter Details Date Type Department Care Team Description 12/01/2021 Orders Only [facility] f Sebastian Mohan MD [address] [place] [address] [place], [place] [phone] (Wo rk) Social History Tobacco Use [...] in this encounter Results (ABNORMAL) HEMATOLOGY (12/01/2021) [facility] Method Time Signature WBC 6.62 4.80 - [...] 2021 Unless otherwise specified, test(s) performed at: [facility], [address] [place] [address] FLAVOR TANK TENDER: Steve Younger M.D. For any questions, [...] 2021 Unless otherwise specified, test(s) performed at: [facility], [address] [place] [address] FLAVOR TANK TENDER: Steve Younger M.D. For any questions, [...] 2021 Unless otherwise specified, test(s) performed at: [facility], [address] [place] [address] FLAVOR TANK TENDER: Steve Younger M.D. For any questions, please call customer service at FREQUENCY:MONTHLY Resulting Agency Comment Specimen source: Plasma Sebastian Charles MD LAB BLOOD ORDERABLES Performing Organization Address City/State/ZIP Code Phon e Number [facility] documented in this encounter Visit Diagnoses Not on filedocumented in this encounter Care Teams Cso Relationship Specialty Start Date End Date Harish Silver MD PCP - General 05/17/[address] [place] [address] documented as of this encounter
--- OUTSIDE RECORDS SUMMARY | 2022-05-13 07:48 | XMS_ITS | Encounter Summary ---
:1940 Author Organization [facility] Address [address] [place] [address] Care Team Providers Name Role Phone Harish Silver MD Primary Care Provider Encounter Details Date Type Department Care Team Description 03/30/2022 Orders Only [facility] O f Sebastian Mohan MD [address] [place] [address] [place], [place] [phone] (Wo rk) Social History Tobacco Use [...] this encounter Results (ABNORMAL) Spectrae Chemistry (03/30/2022) [facility] gist Method Time Signature BUN 76 [...] 03/31/2022 Unless otherwise specified, test(s) performed at: [facility], [address] [place] [address], [place] [address] EMERGENCY COMMUNICATIONS OFFICER: Dariel Doyle M.D., Ph.D For any questions, please call customer service at FREQUENCY:MONTHLY Resulting Agency Comment Specimen source: Serum Sebastian Charles MD LAB BLOOD ORDERABLES Performing Organization Address City/State/ZIP Code Phon e Number [facility] (ABNORMAL) HEMATOLOGY (03/30/2022) [facility] gist Method Time Signature WBC 6.97 [...] 03/31/2022 Unless otherwise specified, test(s) performed at: [facility], [address] [place] [address], [place] [address] EMERGENCY COMMUNICATIONS OFFICER: Dariel Doyle M.D., Ph.D For any questions, please call customer service at FREQUENCY:MONTHLY Resulting Agency Comment Specimen source: Blood Sebastian Charles MD LAB BLOOD ORDERABLES Performing Organization Address City/State/ZIP Code Phon e Number [facility] documented in this encounter Visit Diagnoses Not on filedocumented in this encounter Care Teams Infrastructure Project Manager Relationship Specialty Start Date End Date Harish Silver MD PCP - General 05/17/19 [address] [place] [address] documented as of this encounter
--- OUTSIDE RECORDS SUMMARY | 2022-05-13 07:48 | XMS_ITS | Encounter Summary ---
:1940 Author Organization [facility] Address [address] [place] [address] Care Team Providers Name Role Phone Harish Silver MD Primary Care Provider Encounter Details Date Type Department Care Team Description 03/02/2022 Treatment [facility] Sebastian Jimenez MD [address] [place] [address] [place], [place] [phone] (Wo rk) Social History Tobacco Use Types [...] Name: David Castro : 1940 Chart #: [id number] Sex: M This patient was personally seen for a complete visit as part of routine monthly dialysis care. A review of the dialysis treatment, blood pressure, estimated dry weight, and recent lab values was made.These were discussed with the patient and staff as necessary. CONFIDENTIAL INVESTIGATOR: Sebastian Charles MD LOCATION: [phone] SCHEDULE: No Routine Schedule Subjective 03/02/22: Georges [...] HE walked 5 miles with >10,000 steps [id number] already this morning. He has no orthopnea or SOB, wt is lower, dialysis is going very well, and he has his liquid diet figured out and is tolerating protein powder and liquicel. He has no concerns at all today and is very pleased since feeling much better after IV iron infusion at the [facility] that we had arranged. 12/22/21: Georges was unfortunately hospitalized twice since our last visit. He went home and was very weak after I saw him last month on 12/01, went to ER and was admitted at [place] [facility] from 12/02-12/08, had empyemaand chest tube was [...] on filedocumented in this encounter Care Teams Vendor Specialist Relationship Specialty Start Date End Date Harish Silver MD PCP - General 05/17/19 [address] [place] [address] documented as of this encounter
--- OUTSIDE RECORDS SUMMARY | 2022-05-13 07:48 | XMS_ITS | Encounter Summary ---
:1940 Author Organization [facility] Address [address] [place] [address] Care Team Providers Name Role Phone Harish Silver MD Primary Care Provider Encounter Details Date Type Department Care Team Description 01/12/2022 Orders Only [facility] O f Sebastian Mohan MD [address] [place] [address] [place], [place] [phone] (Wo rk) Social History Tobacco Use [...] 01/13/2022 Unless otherwise specified, test(s) performed at: [facility], [address] [place] [address] AIRPLANE ELECTRICIAN: Steve Younger M.D. For any questions, please call customer service at FREQUENCY:OTHER Resulting Agency Comment Specimen source: Blood Sebastian Charles MD LAB BLOOD ORDERABLES Performing Organization Address City/State/ZIP Code Phon e Number [facility] documented in this encounter Visit Diagnoses Not on filedocumented in this encounter Care Teams Caramel Cutter Hand Relationship Specialty Start Date End Date Harish Silver MD PCP - General 05/17/19 [address] [place] [address] documented as of this encounter
--- OUTSIDE RECORDS SUMMARY | 2022-05-13 07:48 | XMS_ITS | Encounter Summary ---
:1940 Author Organization [facility] Address [address] [place] [address] Care Team Providers Name Role Phone Harish Silver MD Primary Care Provider Encounter Details Date Type Department Care Team Description 05/04/2022 Orders Only [facility] O f Sebastian Mohan MD [address] [place] [address] [place], [place] [phone] (Wo rk) Social History Tobacco Use Types Packs/Day Years Used Date Smoking Tobacco: Never Alcohol Use Standard Drinks/Week Comments No 0 (1 standard drink = 0.6 oz pure alcoho l) Sex Assigned at Date Recorded Not on file documented as of this encounter Plan of Treatment Not on filedocumented as of this encounter Procedures Procedure Name Priority Date/Time Associated Diagnosis Comme nts TRACE ELEMENTS Routine 05/04/2022 Results for t his procedure are in the resu lts section. documented in this encounter Results (ABNORMAL) TRACE ELEMENTS (05/04/2022) athologist Signature Aluminum 18 (H) 0 - 10 [facility] mcg/L [facility] Comment: Verified by repeat analysis. This test was developed and its performa nce characteristics determined by [facility]. It has not been cleared or approved by the FDA. The laboratory is regulated under CLIA a s qualified to perform high complexity testing. This test is used fo r clinical purposes. It should not be regarded as investigational or fo r research. Test performed at [facility], [address] [place] [address]. Telephone . Medical Direct or: Steve Younger MD. Specimen (Source) Anatomical Collection Method Collection Time Re ceived Time Location / / Volume Laterality 05/04/2022 05/07/2022 9:47 AM CDT Narrative [facility] - 05/07/2022 Unless otherwise specified, test(s) performed at: [facility], [address] [place] [address] [place] [address] MEDIA MONITOR: Dariel Doyle M.D., Ph.D For any questions, please call customer service at FREQUENCY:OTHER Resulting Agency Comment Specimen source: Serum Sebastian Charles MD LAB BLOOD ORDERABLES Performing Organization Address City/State/ZIP Code Phon e Number [facility] documented in this encounter Visit Diagnoses Not on filedocumented in this encounter Care Teams Teachers Assistant Relationship Specialty Start Date End Date Harish Silver MD PCP - General 05/17/[address] [place] [address] documented as of this encounter
--- OUTSIDE RECORDS SUMMARY | 2022-05-13 07:48 | XMS_ITS | Clinical Summary ---
:1940 Author Organization [facility] Address [address] [place] [address] Phone Care Team Providers Name Role Phone Harish Silver MD Primary Care Provider Encounters Date Type Specialty Care Team Description 05/11/2022 Orders Only Nephrology Sebastian Charles MD 05/04/2022 Orders Only NephSebastian Pandey MD 05/04/2022 Treatment Sebastian Charles MD 04/22/2022 Orders Only NephSebastian Pandey MD 03/30/2022 Orders Only NephSebastian Pandey MD 03/30/2022 Treatment Sebastian Charles MD 03/02/2022 Orders Only NephSebastian Pandey MD 03/02/2022 Treatment Sebastian Charles MD from Last 3 [...] Date/Time Associated Diagnosis Comme nts HEMATOLOGY Routine 05/11/2022 Results for thi s procedure are i n the results section . TRACE ELEMENTS Routine 05/04/2022 Results for t his procedure are i n the results section . TRACE ELEMENTS Routine 04/22/2022 Results for t his procedure are i n the results section . HEMATOLOGY Routine 04/22/2022 Results for thi s procedure are i n the results section . URINE CLEARANCE Routine 04/22/2022 Results for this [...] n the results section . CHEMISTRY Routine 03/30/2022 Results for thi s [...] from Last 3 Months Results (ABNORMAL) HEMATOLOGY (05/11/2022)Only the most recent of4 resultswithin the time period is included. Analysis Performed At Patho logist Time Signature Hemoglobin 10.6 (L) 14.0 - [facility] 18.0 g/dL [facility] Hemoglobin x 3 31.8 (L) 42.0 - [facility] 54.0 % [facility] Specimen (Source) Anatomical Collection Method Collection Time Re ceived Time Location / / Volume Laterality 05/11/2022 05/12/2022 11:2 4 AM CDT Narrative [facility] - 05/12/2022 Unless otherwise specified, test(s) performed at: [facility], [address] [place] [address], [place] [address] SECURITY MANAGEMENT SPECIALIST: Dariel Doyle M.D., Ph.D For any questions, please call customer service at FREQUENCY:OTHER Resulting Agency Comment Specimen source: Blood Sebastian Charles MD LAB BLOOD ORDERABLES Performing Organization Address City/State/ZIP Code Phon e Number [facility] (ABNORMAL) TRACE ELEMENTS (05/04/2022)Only the most recent of2 resultswithin the time period is included. P athologist Signature Aluminum 18 (H) 0 - 10 [facility] mcg/L [facility] Comment: Verified by repeat analysis. This test was developed and its performa nce characteristics determined by [facility]. It has not been cleared or approved by the FDA. The laboratory is regulated under CLIA a s qualified to perform high complexity testing. This test is used fo r clinical purposes. It should not be regarded as investigational or fo r research. Test performed at [facility], [address] [place] [address]. Telephone . [facility] Direct or: Steve Younger MD. Specimen (Source) Anatomical Collection Method Collection Time Re ceived Time Location / / Volume Laterality 05/04/2022 05/07/2022 9:47 AM CDT Narrative [facility] - 05/07/2022 Unless otherwise specified, test(s) performed at: [facility], [address] [place] [address], [place] [address] SECURITY MANAGEMENT SPECIALIST: Dariel Doyle M.D., Ph.D For any questions, please call customer service at FREQUENCY:OTHER Resulting Agency Comment Specimen source: Serum Sebastian Charles MD LAB BLOOD ORDERABLES Performing Organization Address City/State/ZIP Code Phon e Number [facility] (ABNORMAL) URINE CLEARANCE (04/22/2022)Only the most recent of2 resultswithin the time period is included. Analysis [...] e Number [facility] PDF CHEMISTRY (04/22/2022)Only the most recent of2 resultswithin the time period is included. P athologist Signature Urea Nitrogen, 1,933.2 mg/24 hr [...] have been corrected fo r glucose interference. [facility] glucose correction factor f or creatinine [...] AND STOOLS O RDERABLES Performing Organization Address City/[facility]/ZIP Code Phon e Number [facility] PD ADEQUACY (04/22/2022)Only the most recent of4 resultswithin the time period is included. P athologist Signature Kt/V, Residual 2.51 [facility] Creat Clear, 206 L/wk [facility] Urine Nor Wkly [facility] Specimen (Source) Anatomical Collection Method Collection Time Re ceived Time Location / / Volume Laterality 04/22/2022 04/23/2022 4:41 AM CDT Narrative [facility] - 04/23/2022 Unless otherwise specified, test(s) performed at: [facility], [facility] [place] [address] SECURITY MANAGEMENT SPECIALIST: Dariel Doyle M.D., Ph.D For any questions, please call customer service at FREQUENCY:MONTHLY Resulting Agency Comment Specimen source: Urine Sebastian Charles MD LAB BODY FLUIDS AND STOOLS O RDERABLES Performing Organization Address [facility] Phon e Number [facility] PATIENT INFORMATION (04/22/2022)Only the most recent of6 resultswithin the time period is included. P athologist Signature Urea Volume 42.6 L [facility] Distribution [facility] (Zoraida) Specimen (Source) Anatomical Collection Method Collection Time Re ceived Time Location / / Volume Laterality 04/22/2022 04/23/2022 8:15 AM CDT Narrative [facility] - 04/23/2022 Unless otherwise specified, test(s) performed at: [facility], [facility] [employer] [facility] [place] [address] SECURITY MANAGEMENT SPECIALIST: Dariel Doyle M.D., Ph.D For any questions, please call customer service at FREQUENCY:MONTHLY Resulting Agency Comment Specimen source: PD Fluid Sebastian Charles MD LAB BLOOD ORDERABLES Performing Organization Address City/[facility]/ZIP [facility] Phon e Number [facility] (ABNORMAL) Spectrae Chemistry (04/22/2022)Only the most recent of4 resultswithin the time period is included. [facility] gist Method Time Signature BUN 39 (H) [...] 04/23/2022 Unless otherwise specified, test(s) performed at: [facility], [address] [place] [address], [place] [address] SECURITY MANAGEMENT SPECIALIST: Dariel Doyle M.D., Ph.D For any questions, please call customer service at FREQUENCY:MONTHLY Resulting Agency Comment Specimen source: Serum Sebastian Charles MD LAB BLOOD ORDERABLES Performing Organization Address City/State/ZIP Code Phon e Number [facility] from Last 3 Months Insurance Payer Benefit Plan / Subscriber ID Effective Dates Phone Addre ss Type Group [facility] MEDICARE [facility] MEDICARE [id number] 2021-Nettie [phone] [address] [address] COMPLETE t 0 KASSANDRA CHALLIS ([id number]) [place] [address] Care Teams Ax Survey Worker Relationship Specialty Start Date End Date Harish Silver MD PCP - General 05/17/19 [address] [place] [id number]
--- OUTSIDE RECORDS SUMMARY | 2022-05-13 07:48 | XMS_ITS | Encounter Summary ---
:1940 Author Organization [facility] Address [address] [place] [address] Care Team Providers Name Role Phone Harish Silver MD Primary Care Provider Encounter Details Date Type Department Care Team Description 05/11/2022 Orders Only [facility] f Sebastian Mohan MD [phone] [place] [address] [place], [place] [phone] (Wo rk) Social History Tobacco Use [...] 05/11/2022 Results for thi s procedure are in the resu lts section. documented in this encounter Results (ABNORMAL) HEMATOLOGY (05/11/2022) Analysis Performed At Patho logist Time Signature Hemoglobin 10.6 (L) 14.0 - [facility] 18.0 g/dL [facility] Hemoglobin x 3 31.8 (L) 42.0 - [facility] 54.0 % [facility] Specimen (Source) Anatomical Collection Method Collection Time Re ceived Time Location / / Volume Laterality 05/11/2022 05/12/2022 11:2 4 AM CDT Narrative [facility] - 05/12/2022 Unless otherwise specified, test(s) performed at: [facility], [address] [place] [address], [place] [address] SPECIAL EDUCATION INCLUSION TEACHER: Dariel Doyle M.D., Ph.D For any questions, please call customer service at FREQUENCY:OTHER Resulting Agency Comment Specimen source: Blood Sebastian Charles MD LAB BLOOD ORDERABLES Performing Organization Address City/State/ZIP Code Phon e Number [facility] documented in this encounter Visit Diagnoses Not on filedocumented in this encounter Care Teams Silk Spotter Relationship Specialty Start Date End Date Harish Silver MD PCP - General 05/17/19 [facility] [place] [address] documented as of this encounter
--- OUTSIDE RECORDS SUMMARY | 2022-05-13 07:48 | XMS_ITS | Encounter Summary ---
:1940 Author Organization [facility] Address [address] [place] [address] Care Team Providers Name Role Phone Harish Silver MD Primary Care Provider Encounter Details Date Type Department Care Team Description 12/01/2021 Treatment [facility] Sebastian Jimenez MD [address] A[address] [place] [address] [place], [place] [phone] (Wo rk) Social History Tobacco Use Types [...] Name: David Castro : 1940 Chart #: [id number] Sex: M This patient was personally seen for a complete visit as part of routine monthly dialysis care. A review of the dialysis treatment, blood pressure, estimated dry weight, and recent lab values was made.These were discussed with the patient and staff as necessary. SURFACE LOGGING SYSTEMS LOGGER: Sebastian Charles MD LOCATION: [phone] SCHEDULE: No Routine Schedule Subjective 12/01/21: Georges [...] in this encounter Care Teams Health Care Law Specialist Relationship Specialty Start Date End Date Harish Silver MD PCP - General 05/17/19 [address] [place] [place] [address] documented as of this encounter
--- OUTSIDE RECORDS SUMMARY | 2022-05-13 07:49 | XMS_ITS | Encounter Summary ---
:1940 Author Organization [facility] Address [address] [place] [address] Care Team Providers Name Role Phone Harish Silver MD Primary Care Provider Encounter Details Date Type Department Care Team Description 05/25/2021 Documentation Only [facility] Harish Maxwell MD OR [address] [place] [address] 220 [place] [address] Social History Tobacco Use Types Packs/Day Years Used Date Smoking Tobacco: Never Alcohol Use Standard Drinks/Week Comments No 0 (1 standard drink = 0.6 oz pure alcoho l) Sex Assigned at Date Recorded Not on file documented as of this encounter Plan of Treatment Not on filedocumented as of this encounter Visit Diagnoses Not on filedocumented in this encounter Care Teams Windows Systems Architect Relationship Specialty Start Date End Date Harish Silver MD PCP - General 05/17/19 [address] [place] [place] [address] documented as of this encounter
--- OUTSIDE RECORDS SUMMARY | 2022-05-13 07:49 | XMS_ITS | Encounter Summary ---
:1940 Author Organization [facility] Address [address] [place] [address] Care Team Providers Name Role Phone Harish Silver MD Primary Care Provider Encounter Details Date Type Department Care Team Description 09/22/2021 Orders Only [facility] f Sebastian Mohan MD [phone] [place] [address] [place], [place] [phone] (Wo rk) Social History Tobacco Use [...] / Volume Laterality 09/22/2021 09/23/2021 1:41 PM PLASTICS PLATER Narrative [facility] - 09/24/2021 Unless otherwise specified, test(s) performed at: [facility], [address] [place] [address] NUT SORTER OPERATOR: Steve Younger M.D. For any questions, please call customer service at FREQUENCY:MONTHLY Resulting Agency Comment Specimen source: Plasma Sebastian Charles MD LAB BLOOD ORDERABLES Performing Organization Address City/State/[facility] Phon e Number [facility] IMMUNO CHEMISTRY (09/22/2021) P athologist Signature Hep B Surface Negative Negative [facility] Ag [facility] Specimen (Source) Anatomical Collection Method Collection Time Re ceived Time Location / / Volume Laterality 09/22/2021 09/23/2021 3:00 PM PLASTICS PLATER Narrative [facility] - 09/23/2021 Unless otherwise specified, test(s) performed at: [facility], [address] [place] [address] NUT SORTER OPERATOR: Steve Younger M.D. For any questions, please call customer service at FREQUENCY:MONTHLY Resulting Agency Comment Specimen source: Serum Sebastian Charles MD LAB BLOOD ORDERABLES Performing Organization Address City/State/[facility] Code Phon e Number APS [...] / Volume Laterality 09/22/2021 09/23/2021 3:00 PM PLASTICS PLATER Narrative [facility] - 09/23/2021 Unless otherwise specified, test(s) performed at: [facility], [address] [place] [address] NUT SORTER OPERATOR: Steve Younger M.D. For any questions, please call customer service at FREQUENCY:MONTHLY Resulting Agency Comment Specimen source: Serum Sebastian Charles MD LAB BLOOD ORDERABLES Performing Organization Address City/State/ZIP Code Phon e Number [facility] (ABNORMAL) HEMATOLOGY (09/22/2021) [facility] gist Method Time Signature WBC 4.99 [...] / Volume Laterality 09/22/2021 09/23/2021 1:30 PM PLASTICS PLATER Narrative [facility] - 09/23/2021 Unless otherwise specified, test(s) performed at: [facility], [address] [place] [address] NUT SORTER OPERATOR: Steve Younger M.D. For any questions, please call customer service at FREQUENCY:MONTHLY Resulting Agency Comment Specimen source: Blood Sebastian Charles MD LAB BLOOD ORDERABLES Performing Organization Address City/State/ZIP Code Phon e Number [facility] documented in this encounter Visit Diagnoses Not on filedocumented in this encounter Care Teams Soaker Hides Relationship Specialty Start Date End Date Harish Silver MD PCP - General 05/17/19 [address] [place] [address] documented as of this encounter
--- OUTSIDE RECORDS SUMMARY | 2022-05-13 07:49 | XMS_ITS | Encounter Summary ---
:1940 Author Organization [facility] Address [address] [place] [address] Care Team Providers Name Role Phone Harish Silver MD Primary Care Provider Encounter Details Date Type Department Care Team Description 09/13/2021 Orders Only [facility] f Sebastian Mohan MD [phone] [place] [address] [place], [place] [phone] (Wo rk) Social History Tobacco Use [...] in this encounter Results (ABNORMAL) HEMATOLOGY (09/13/2021) [facility] Method Time Signature WBC 6.99 4.80 - [...] / Volume Laterality 09/13/2021 09/14/2021 8:39 PM SMOKE INSPECTOR Narrative [facility] - 09/14/2021 Unless otherwise specified, test(s) performed at: [facility], [address] [place] [address] DIESEL ENGINEER: Steve Younger M.D. For any questions, please call customer service at FREQUENCY:MONTHLY Resulting Agency Comment Specimen source: Blood Sebastian Charles MD LAB BLOOD ORDERABLES Performing Organization Address City/State/ZIP Code Phon e Number [facility] TRACE ELEMENTS (09/13/2021) athologist Signature Aluminum <5 0 - 10 [facility] mcg/L [facility] Comment: This test was developed and its performa nce characteristics determined by [facility]. It has not been cleared or approved by the FDA. The laboratory is regulated under CLIA a s qualified to perform high complexity testing. This test is used fo r clinical purposes. It should not be regarded as investigational or fo r research. Specimen (Source) Anatomical Collection Method Collection Time Re ceived Time Location / / Volume Laterality 09/13/2021 09/14/2021 1:33 PM SMOKE INSPECTOR Narrative [facility] - 09/14/2021 Unless otherwise specified, test(s) performed at: [facility], [address] [place], [place] [id number] DIESEL ENGINEER: Steve Younger M.D. For any questions, please [...] / Volume Laterality 09/13/2021 09/14/2021 1:06 PM SMOKE INSPECTOR Narrative [facility] - 09/14/2021 Unless otherwise specified, test(s) performed at: [facility], [address] [place], [place] [id number] DIESEL ENGINEER: Steve Younger M.D. For any questions, please call customer service at FREQUENCY:MONTHLY Resulting Agency Comment Specimen source: Serum Sebastian Charles MD LAB BLOOD BANK TEST ORDERABL ES Performing Organization Address City/[facility]/ZIP [facility] Phon e Number [facility] IMMUNO [...] / Volume Laterality 09/13/2021 09/14/2021 1:06 PM SMOKE INSPECTOR Resulting Agency Comment Specimen source: Serum Sebastian Charles MD LAB BLOOD ORDERABLES Performing Organization Address City/State/ZIP Code Phon e Number [facility] (ABNORMAL) Spectrae Chemistry (09/13/2021) [facility] gist Method Time Signature BUN 73 [...] / Volume Laterality 09/13/2021 09/14/2021 1:06 PM SMOKE INSPECTOR Narrative [facility] - 09/14/2021 Unless otherwise specified, test(s) performed at: [facility], [address] [place] [address] DIESEL ENGINEER: Steve Younger M.D. For any questions, please [...] / Volume Laterality 09/13/2021 09/14/2021 1:13 PM SMOKE INSPECTOR Narrative [facility] - 09/14/2021 Unless otherwise specified, test(s) performed at: [facility], [address] [place] [address] DIESEL ENGINEER: Steve Younger M.D. For any questions, please call customer service at FREQUENCY:MONTHLY Resulting Agency Comment Specimen source: Plasma Sebastian Charles MD LAB BLOOD ORDERABLES Performing Organization Address City/State/ZIP Code Phon e Number [facility] documented in this encounter Visit Diagnoses Not on filedocumented in this encounter Care Teams Street Openings Inspector Relationship Specialty Start Date End Date Harish Silver MD PCP - General 05/17/19 [address] [place] [place] [address] documented as of this encounter
--- OUTSIDE RECORDS SUMMARY | 2022-05-13 07:49 | XMS_ITS | Continuity of Care Document ---
:1940 Author Organization [facility] Address [address] [address] [place] [address] Phone Care Team Providers Name Role Phone [...] No Sanjay MOISE [facility] Information Surya. [facility], [address] [place] [address], [address] [place], [facility] [address], , [place], [place] [id number], , [place], [id number], tel:[phone] tel:[phone] FACUNDO LOREDO AchalasiaHema Asad MOISE Referr ing Digestive Endoscopy tem[facility]. Provid er: [facility], Center satya of cardia [address] [place] [address], Street [place], [address] [place] [address], [address] [facility], [place], [place] 60, [id number], , [place], [place], [id number], [place], [address]. tel:+[phone] [place]. tel:[phone] tel:[phone] FACUNDO [place] Achalasia of [place] Referr ing Digestive FACUNDO cardiaGastro- MD Malin. Provide r: Health [facility], Endoscopy esophageal [address] [place], [address], disease with [address], [address] [place] [place] esophagitis, [address], Av [address] St [address] s, [place], without [address] 601, [id number], bleedingOth , [place], [place], [place] congenital [id number], [place], [address]. tel:+[phone] malformations [place]. 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 [facility], Endoscopy 1 [address] [facility] [address], Street [place], [facility] [address], s, [place], [place] [id number], , [place], [place] [id number], tel:[phone]. [phone] tel:[phone] [facility] Achalasia Gerri MOISE Referring Digestive Clinic Symptoms - Marcelo. Provider: [facility], or 1 [address] [facility] Joe MOISE, [address], ([address] [place], [address] [place] [address] complaint) [address], [address], [place], [address] 601, [id number], , [place], [place], [place] [id number], [place], [address]. tel: [place]. tel:[phone] tel:[phone] Init Hosp-da [facility] [place] No Rima MOISE Referring E&m Mod Digestive [facility] Information Viki. [address] P rovider: [facility], Hosp 1 [place] Vikiamanda Post r [facility] MD Lyric SWEET, [address] [address], [address], [facility] s, [place], , [place], [address], [id number], [id number], [place], [place]. [place], tel:+ tel:[phone]. [phone] [phone] [facility] Cortez Achalasia Rima MOISE Digestive [facility] Viki. 3001 Health ID, Hosp 1 [facility], [address], [address], [place], [place], , [place], [id number], [id number], [place]. tel: tel:[phone] Offic/outpt [facility] GI Achalasia Apr- Lisa PAC Refe nicolaing E&m [facility] Symptoms 8-201 [place]. 3001 Provid er: [facility], or [address] [place] [address] [address], Andreea MOISE [address], (chief [address], L, [address] [place] complaint) Portal Malachi son s, [place], , [place], Rd, [id number], [id number], [place], [address]. tel: tel: tel: [phone] Family History Family Member Type Diagnosis Age [...] Other Registry tetanus toxoid, reduced administered Note: [place] bi-directional diphtheria toxoid, and acellular interface [...] ID Authorization(s ) [employer] Medicare Advantage [id number] [facility] [id number] Social History Type Description Quantity Date Captured [...] worsened. He has undergone workup at the [facility] and reports undergoing a n EGD in February and then having a repeat EGD with pneumatic balloon dilation about 3 wee ks ago at their facility. Since the balloon di lation, he was admitted at [facility] and due to complaints of dysphagia at [...]
--- OUTSIDE RECORDS SUMMARY | 2022-05-13 07:49 | XMS_ITS | Encounter Summary ---
:1940 Author Organization [facility] Address [address] [place] [address] Care Team Providers Name Role Phone Harish Silver MD Primary Care Provider Encounter Details Date Type Department Care Team Description 09/15/2021 Treatment [facility] O Sebastian Jimenez MD [address] [place], [place] [phone] (Wo rk) Social History Tobacco Use Types [...] Name: David Castro : 1940 Chart #: [id number] Sex: M Has the patient previously been [...] on filedocumented in this encounter Care Teams 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 Inboard Relationship Specialty Start Date End Date Harish Silver MD PCP - General 05/17/19 [address] [place] [place] [address] documented as of this encounter
--- OUTSIDE RECORDS SUMMARY | 2022-05-13 07:49 | XMS_ITS | Encounter Summary ---
:1940 Author Organization [facility] Address [address] [place] [address] Care Team Providers Name Role Phone Harish Silver MD Primary Care Provider Encounter Details Date Type Department Care Team Description 09/22/2021 Treatment [facility] O Sebastian Jimenez MD [address] [place], [place] [phone] (Wo rk) Social History Tobacco Use Types [...] Name: David Castro : 1940 Chart #: [id number] Sex: M This patient was personally seen for a complete visit as part of routine monthly dialysis care. A review of the dialysis treatment, blood pressure, estimated dry weight, and recent lab values was made.These were discussed with the patient and staff as necessary. TRANSCRIBING MACHINE OPERATOR: Sebastian Charles MD LOCATION: [phone] SCHEDULE: No Routine Schedule Subjective 09/22/21: Georges [...] on filedocumented in this encounter Care Teams Ore Trimmer Relationship Specialty Start Date End Date Harish Silver MD PCP - General 05/17/19 [address] [place] [address] documented as of this encounter
--- OUTSIDE RECORDS SUMMARY | 2022-05-13 07:49 | XMS_ITS | Encounter Summary ---
:1940 Author Organization [facility] Address [address] [place] [address] Care Team Providers Name Role Phone Harish Silver MD Primary Care Provider Encounter Details Date Type Department Care Team Description 10/27/2021 Treatment [facility] O Sebastian Jimenez MD [address] [place], [place] [phone] (Wo rk) Social History Tobacco Use Types [...] Name: David Castro : 1940 Chart #: [id number] Sex: M This patient was personally seen for a complete visit as part of routine monthly dialysis care. A review of the dialysis treatment, blood pressure, estimated dry weight, and recent lab values was made.These were discussed with the patient and staff as necessary. SOLE LEATHER CUTTING MACHINE OPERATOR: Sebastian Charles MD LOCATION: [phone] SCHEDULE: No Routine Schedule Subjective 10/27/21: Georges [...] on filedocumented in this encounter Care Teams Nurse Epidemiologist Relationship Specialty Start Date End Date Harish Silver MD PCP - General 05/17/19 [address] [place] [address] documented as of this encounter
--- OUTSIDE RECORDS SUMMARY | 2022-05-13 07:49 | XMS_ITS | Encounter Summary ---
:1940 Author Organization [facility] Address [address] [place] [address] Care Team Providers Name Role Phone Harish Silver MD Primary Care Provider Encounter Details Date Type Department Care Team Description 09/01/2021 Telephone [facility] f Yessica Patten, [place] [address] [place] [address] [address] [place] [address] (Wo rk) Social History Tobacco Use Types Packs/Day Years Used Date Smoking Tobacco: Never Alcohol Use Standard Drinks/Week Comments No 0 (1 standard drink = 0.6 oz pure alcoho l) Sex Assigned at Date Recorded Not on file documented as of this encounter Miscellaneous Notes Telephone Encounter - Yessiac Taveras RN - 09/02/2021 10:55 AM CST Acceptance letter received. Dialysis unit will notify pt of date/time to start PD training. Telephone Encounter - Yessica Taveras RN - 09/01/2021 10:53 AM CST VO from Dr. Charles- Start [facility] admission process. He will be starting PD at [facility] last week of August. Already has PD catheter. Completed [facility] Admission in the portal. documented in this encounter Plan of Treatment Not on filedocumented as of this encounter Visit Diagnoses Not on filedocumented in this encounter Care Teams Tribal Council Member Relationship Specialty Start Date End Date Harish Silver MD PCP - General 05/17/19 [address] [place] [address] documented as of this encounter
--- OUTSIDE RECORDS SUMMARY | 2022-05-13 07:49 | XMS_ITS | Encounter Summary ---
:1940 Author Organization [facility] Address [address] [place] [address] Care Team Providers Name Role Phone Harish Silver MD Primary Care Provider Encounter Details Date Type Department Care Team Description 11/10/2021 Orders Only [facility] f Sebastian Mohan MD [phone] [place] [address] [place], [place] [phone] (Wo rk) Social History Tobacco Use [...] CDT Resulting Agency Comment Specimen source: Urine Sbeastian Charles MD LAB URINE ORDERABLES Performing Organization [...] 11/11/2021 Unless otherwise specified, test(s) performed at: [facility], [address] [place] [address] RETAIL COMMISSION SALES ASSOCIATE: Steve Younger M.D. For any questions, please [...] have been corrected fo r glucose interference. [facility] glucose correction factor f or creatinine is [...] 11/11/2021 Unless otherwise specified, test(s) performed at: [facility], [address] [place], [place] [id number] RETAIL COMMISSION SALES ASSOCIATE: Steve Younger M.D. For any questions, please [...] 11/11/2021 Unless otherwise specified, test(s) performed at: [facility], [address] [place] [address] RETAIL COMMISSION SALES ASSOCIATE: Steve Younger M.D. For any questions, please call customer service at FREQUENCY:MONTHLY Resulting Agency Comment Specimen source: PD Fluid Sebastian Charles MD LAB BLOOD ORDERABLES Performing Organization Address City/[facility]/ZIP Code Phon e Number [facility] [...] 11/11/2021 Unless otherwise specified, test(s) performed at: [facility], [address] [place] [address] RETAIL COMMISSION SALES ASSOCIATE: Steve Younger M.D. For any questions, please call customer service at FREQUENCY:MONTHLY Resulting Agency Comment Specimen source: Serum Sebastian Charles MD LAB BLOOD ORDERABLES Performing Organization Address City/[facility] Phon e Number [facility] PATIENT [...] 11/11/2021 Unless otherwise specified, test(s) performed at: [facility], [address] [place] [address] RETAIL COMMISSION SALES ASSOCIATE: Steve Younger M.D. For any questions, please call customer service at FREQUENCY:MONTHLY Resulting Agency Comment Specimen source: PD Fluid Sebastian Charles MD LAB BLOOD ORDERABLES Performing Organization Address City/[facility] Phon e Number [facility] S[facility]RA [facility] PATIENT [...] 11/11/2021 Unless otherwise specified, test(s) performed at: [facility], [address] [place] [address] RETAIL COMMISSION SALES ASSOCIATE: Steve Younger M.D. For any questions, please call customer service at FREQUENCY:MONTHLY Resulting Agency Comment Specimen source: PD Fluid Sebastian Charles MD LAB BLOOD ORDERABLES Performing Organization Address City/State/ZIP Code Phon e Number [facility] documented in this encounter Visit Diagnoses Not on filedocumented in this encounter Care Teams Master Barber Relationship Specialty Start Date End Date Harish Silver MD PCP - General 05/17/[address] [place] [address] documented as of this encounter
--- OUTSIDE RECORDS SUMMARY | 2022-05-13 07:49 | XMS_ITS | Encounter Summary ---
:1940 Author Organization [facility] Address [address] [place] [address] Care Team Providers Name Role Phone Harish Silver MD Primary Care Provider Encounter Details Date Type Department Care Team Description 05/25/2021 Documentation Only [facility] Maxwell MD [place] [address] [place] [address] [address] [place] [address] Social History Tobacco Use Types Packs/Day Years Used Date Smoking Tobacco: Never Alcohol Use Standard Drinks/Week Comments No 0 (1 standard drink = 0.6 oz pure alcoho l) Sex Assigned at Date Recorded Not on file documented as of this encounter Plan of Treatment Not on filedocumented as of this encounter Visit Diagnoses Not on filedocumented in this encounter Care Teams Nickel Plater Relationship Specialty Start Date End Date Harish Silver MD PCP - General 05/17/19 [address] [place] [address] documented as of this encounter
--- OUTSIDE RECORDS SUMMARY | 2022-05-13 07:49 | XMS_ITS | Encounter Summary ---
:1940 Author Organization [facility] Address [address] [place] [address] Care Team Providers Name Role Phone Hraish Silver MD Primary Care Provider Encounter Details Date Type Department Care Team Description 10/06/2021 Orders Only [facility] Sebastian Mohan MD [phone] [place] [address] [place], [place] [phone] (Wo rk) Social History Tobacco Use [...] / Volume Laterality 10/06/2021 10/07/2021 8:46 PM MANAGER WIND Narrative [facility] - 10/08/2021 Unless otherwise specified, test(s) performed at: [facility], [address] [place] [id number] [place]: Steve Younger M.D. For any questions, please call customer service at FREQUENCY:OTHER Resulting Agency Comment Specimen source: Serum Sebastian Charles MD LAB BLOOD ORDERABLES Performing Organization Address City/State/ZIP Code Phon e Number [facility] documented in this encounter Visit Diagnoses Not on filedocumented in this encounter Care Teams Master Ocean Relationship Specialty Start Date End Date Harish Silver MD PCP - General 05/17/19 [address] [place] [address] documented as of this encounter
--- OUTSIDE RECORDS SUMMARY | 2022-05-13 07:49 | XMS_ITS | Encounter Summary ---
:1940 Author Organization [facility] Address [address] [place] [address] Care Team Providers Name Role Phone Harish Silver MD Primary Care Provider Encounter Details Date Type Department Care Team Description 10/19/2021 Orders Only [facility] Sebastian Mohan MD [phone] [place] [address] [place], [place] [phone] (Wo rk) Social History Tobacco Use [...] Volume Laterality 10/19/2021 10/20/2021 12:2 2 PM HEAD MECHANIC Resulting Agency Comment Specimen source: Urine Sebastian [...] Volume Laterality 10/19/2021 10/20/2021 12:2 2 PM HEAD MECHANIC Narrative [facility] - 10/20/2021 Unless otherwise specified, test(s) performed at: [facility], [address] [place] [address] HEALTH COMMUNICATIONS SPECIALIST: Steve Younger M.D. For any questions, [...] Volume Laterality 10/19/2021 10/20/2021 12:0 9 PM HEAD MECHANIC Resulting Agency Comment Specimen source: PD Fluid [...] Volume Laterality 10/19/2021 10/20/2021 12:0 9 PM HEAD MECHANIC Resulting Agency Comment Specimen source: PD Fluid Sebastian Charles MD LAB BLOOD ORDERABLES Performing Organization Address City/[facility]/ZIP Code Phon e Number APS SPECTRA [...] Volume Laterality 10/19/2021 10/20/2021 12:0 9 PM HEAD MECHANIC Resulting Agency Comment Specimen source: PD Fluid [...] Volume Laterality 10/19/2021 10/20/2021 12:0 9 PM HEAD MECHANIC Narrative [facility] - 10/20/2021 Unless otherwise specified, test(s) performed at: [facility], [address] [place] [address] HEALTH COMMUNICATIONS SPECIALIST: Steve Younger M.D. For any questions, [...] Volume Laterality 10/19/2021 10/20/2021 12:1 5 PM HEAD MECHANIC Resulting Agency Comment Specimen source: PD Fluid Sebastian Charles MD LAB BLOOD ORDERABLES Performing Organization Address City/[facility]/ZIP Code Phon e Number APS SPECTRA [...] Volume Laterality 10/19/2021 10/20/2021 12:1 5 PM HEAD MECHANIC Resulting Agency Comment Specimen source: PD Fluid [...] Volume Laterality 10/19/2021 10/20/2021 12:1 5 PM HEAD MECHANIC Resulting Agency Comment Specimen source: PD Fluid Sebastian Charles MD LAB BLOOD ORDERABLES Performing Organization Address City/State/ZIP Code Phon e Number [facility] P.E.T. INTERPRETATION (10/19/2021) [facility] gist Method Time Signature Solute Average [...] 0 .82-1.03 ?? 0.43-0.24 ?? 0.25-0.12 ?? [phone] Average High ? 0.49-0.62 ?? 0.66- 0.81 ?? 0.54-0.44 ?? 0.37-0.26 ?? [phone] Average ?0.48 ?0.65 ?0.55 ?0.38 ?2368 Average Low ?0.34-0.47 ?? 0.50 -0.64 ?? 0.66-0.56 ?? 0.49-0.39 ?? [phone] Low ?0.23-0.33 ?? 0.34-0.49 ?? 0.78-0.67 ?? 0.61-0.50 ?? [phone] *Concetta GREY, Bridgette KD, Farooq R, Jovani [...] Volume Laterality 10/19/2021 10/20/2021 12:1 5 PM HEAD MECHANIC Narrative [facility] - 10/20/2021 Unless otherwise specified, test(s) performed at: [facility], [address] [place] [address] HEALTH COMMUNICATIONS SPECIALIST: Steve Younger M.D. For any questions, [...] have been corrected fo r glucose interference. [facility] glucose correction factor f or creatinine [...] Volume Laterality 10/19/2021 10/20/2021 11:5 9 AM HEAD MECHANIC Resulting Agency Comment Specimen source: PD Fluid [...] Volume Laterality 10/19/2021 10/20/2021 11:5 9 AM HEAD MECHANIC Narrative [facility] - 10/20/2021 Unless otherwise specified, test(s) performed at: [facility], [address] [place] [address] HEALTH COMMUNICATIONS SPECIALIST: Steve Younger M.D. For any questions, please call customer service at FREQUENCY:MONTHLY Resulting Agency Comment Specimen source: PD Fluid Sebastian Charles MD LAB BODY FLUIDS AND STOOLS O RDERABLES Performing Organization Address City/[facility]/ZIP Code Phon e Number APS SPECTRA [...] Volume Laterality 10/19/2021 10/20/2021 12:1 9 PM HEAD MECHANIC Resulting Agency Comment Specimen source: PD Fluid Sebastian Charles MD LAB BLOOD ORDERABLES Performing Organization Address [facility] Code Phon e Number APS SPECTRA [...] Volume Laterality 10/19/2021 10/20/2021 12:1 9 PM HEAD MECHANIC Resulting Agency Comment Specimen source: PD Fluid Sebastian Charles MD LAB BLOOD ORDERABLES Performing Organization Address City/[facility] Code Phon e Number APS SPECTRA [...] Volume Laterality 10/19/2021 10/20/2021 12:1 9 PM HEAD MECHANIC Resulting Agency Comment Specimen source: PD Fluid [...] Volume Laterality 10/19/2021 10/20/2021 12:1 9 PM HEAD MECHANIC Narrative [facility] - 10/20/2021 Unless otherwise specified, test(s) performed at: [facility], [address] [place] [address] HEALTH COMMUNICATIONS SPECIALIST: Steve Younger M.D. For any questions, [...] / Volume Laterality 10/19/2021 10/20/2021 9:08 AM HEAD MECHANIC Narrative [facility] - 10/20/2021 Unless otherwise specified, test(s) performed at: [facility], [address] [place], [place] [id number] HEALTH COMMUNICATIONS SPECIALIST: Steve Younger M.D. For any questions, please call customer service at FREQUENCY:MONTHLY Resulting Agency Comment Specimen source: Serum Sebastian Charles MD LAB BLOOD ORDERABLES Performing Organization Address City/[facility] Phon e Number [facility] PATIENT INFORMATION (10/19/2021) athologist [facility] Urea Volume 43.6 L [facility] Distribution [facility] (Zoraida) Specimen (Source) Anatomical Collection Method Collection Time Re ceived Time Location / / Volume Laterality 10/19/2021 10/20/2021 11:5 9 AM HEAD MECHANIC Narrative [facility] - 10/20/2021 Unless otherwise specified, test(s) performed at: [facility], [address] [place] [address] HEALTH COMMUNICATIONS SPECIALIST: Steve Younger M.D. For any questions, please call customer service at FREQUENCY:MONTHLY Resulting Agency Comment Specimen source: PD Fluid Sebastian Charles MD LAB BLOOD ORDERABLES Performing Organization Address City/[facility]/ZIP [facility] Phon e Number [facility] IMMUNO CHEMISTRY (10/19/2021) P athologist Signature Hep B Surface Negative Negative [facility] Ag [facility] Specimen (Source) Anatomical Collection Method Collection Time Re ceived Time Location / / Volume Laterality 10/19/2021 10/20/2021 9:08 AM HEAD MECHANIC Resulting Agency Comment Specimen source: Serum Sebastian Charles MD LAB BLOOD ORDERABLES Performing Organization Address City/[facility]/ZIP Code Phon e Number [facility] PATIENT INFORMATION (10/19/2021) P athologist Signature Patient BSA 1.94 sq. M. [facility] Comment: Normalized values are calculated using t he patient's actual BSA and normalized to the average BSA of 1.73m2. Specimen (Source) Anatomical Collection Method Collection Time Re ceived Time Location / / Volume Laterality 10/19/2021 10/20/2021 9:08 AM HEAD MECHANIC Narrative [facility] - 10/20/2021 Unless otherwise specified, test(s) performed at: [facility], [address] [place] [address] HEALTH COMMUNICATIONS SPECIALIST: Steve Younger M.D. For any questions, please call customer service at FREQUENCY:MONTHLY Resulting Agency Comment Specimen source: PD Fluid Sebastian Charles MD LAB BLOOD ORDERABLES Performing Organization Address City/[facility] Phon e Number [facility] (ABNORMAL) HEMATOLOGY (10/19/2021) [facility] gist Method Time Signature WBC 7.38 [...] / Volume Laterality 10/19/2021 10/20/2021 8:46 AM HEAD MECHANIC Narrative [facility] - 10/20/2021 Unless otherwise specified, test(s) performed at: [facility], [address] [place], [place] [id number] HEALTH COMMUNICATIONS SPECIALIST: Steve Younger M.D. For any questions, please call customer service at FREQUENCY:MONTHLY Resulting Agency Comment Specimen source: Blood Sebastian Charles MD LAB BLOOD ORDERABLES Performing Organization Address City/[facility] Phon e Number APS SPECTRA [...] 10/20/2021 Unless otherwise specified, test(s) performed at: [facility], [address] [place] [id number] HEALTH COMMUNICATIONS SPECIALIST: Steve Younger M.D. For any questions, please call customer service at FREQUENCY:MONTHLY Resulting Agency Comment Specimen source: PD Fluid Sebastian Charles MD LAB BLOOD ORDERABLES Performing Organization Address City/[facility] Phon e Number [facility] documented in this encounter Visit Diagnoses Not on filedocumented in this encounter Care Teams Gas Mask Inspector Relationship Specialty Start Date End Date Harish Silver MD PCP - General 05/17/19 [address] [place] [address] documented as of this encounter
[2022-05-13 08:00] VITALS: BP 125/59
[2022-05-13 08:02] LABS: Basophils Absolute Auto 0.01 K/uL (0.00-0.30); Basophils Percent Auto 0.2 % (0.0-3.0); Eosinophils Absolute Auto 0.09 K/uL (0.00-0.50); Eosinophils Percent Auto 1.4 % (0.0-7.0); Hematocrit 35.5 % (37.0-53.0); Immature Granulocytes Abs Auto 0.03 K/uL (0.00-0.30); Lymphocytes Percent Auto 5.8 % (20-44); Mean Corpuscular HGB Conc 31 gm/dL (32-36); Mean Corpuscular Hemoglobin 31 pg (26-34); Mean Corpuscular Volume 101 fL (80-100); Monocytes Percent Auto 5.8 % (0.0-11.0); Neutrophils Percent Auto 86.3 % (42.0-72.0); Platelet Count* 188 K/uL (140-440); RDW Coefficient of Variation % 15.3 % (11.5-15.5); Red Blood Count 3.51 m/uL (4.30-5.90); White Blood Count* 6.42 K/uL (4.50-11.00)
[2022-05-13 08:05] LABS: Slide Review Reflex No
[2022-05-13 08:08] LABS: Troponin, Point-of-Care* 0.08 ng/ml (0.01-0.04)
[2022-05-13 08:16] LABS: Albumin* 3.4 g/dL (3.3-5.0); Chloride* 98 mmol/L (96-114); Potassium* 3.3 mmol/L (3.6-5.1); Sodium* 140 mmol/L (135-149)
[2022-05-13 08:18] LABS: Creatinine* 3.7 mg/dL (0.5-1.5); Est. Creatinine Clearance* 15.41; Estimated Glomerular Filt Rate 16 ml/min; INR 1.97 (0.91-1.10); Prothrombin Time 22.8 Seconds
[2022-05-13 08:19] LABS: Alanine Aminotransferase* 12 U/L (4-50); Alkaline Phosphatase* 228 U/L (40-150); Aspartate Amino Transferase* 27 U/L (12-35); Bilirubin Direct* 0.1 mg/dL (0.0-0.5); Bilirubin Total* 0.4 mg/dL (0.1-1.5); Blood Urea Nitrogen* 51 mg/dL (7-30); Carbon Dioxide* 36 mmol/L (20-32); Glucose* 138 mg/dL (60-115); Partial Thromboplastin Time* 38 Seconds (23-33); Total Protein* 6.6 g/dL (6.0-8.3)
[2022-05-13 08:20] LABS: Calcium* 8.8 mg/dL (8.4-10.6)
[2022-05-13 08:28] LABS: NT Pro B Type NatriureticPept* 3420 PG/mL (0-450)
[2022-05-13 08:30] VITALS: BP 114/59; PULSE 66; RESP 18; O2SAT 98
[2022-05-13 08:40] LABS: SARS PCR* Negative SARS-CoV-2 (Negative)
[2022-05-13 09:00] VITALS: BP 108/65; PULSE 68; RESP 18; O2SAT 98
[2022-05-13 09:30] VITALS: BP 113/52; PULSE 69; RESP 25; TEMP 36.4; O2SAT 98
--- NOTE | 2022-05-13 10:27 | ED.NURSE ---
Report to LENORE Ivy at [facility].
--- NOTE | 2022-05-13 10:40 | ED.NURSE ---
Pt and belongings transfered to [facility] via [facility]
== END 2022-05-13 10:40 | disposition other institution (70) ==
PROVIDERS: Emergency Medicine; Emergency Provider Family Medicine; PCP Family Medicine
DX: K92.0 Hematemesis (principal); K92.1 Melena
CPT/HCPCS: 36415; 80048; 80076; 83880; 84484; 85025; 85610; 85730; 86850; 86900; 86901; 87635; 93005; 94761; 99284; 99285

== ENCOUNTER 2022-05-13 10:34 | Outpatient (CLI) | payer MEDICARE, OTHER, SELFPAY ==
--- OUTSIDE RECORDS SUMMARY | 2022-06-14 06:17 | XMS_ITS | Continuity of Care Document ---
:1940 Author Organization [facility] Care Team Providers Name Role Phone [facility] Unavailable Unavailable Problems Combined list of problems from Department of Defense and Veterans Affairs facilities. It does not include entries that were removed or entered in error. 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 Mik Doran, [place] [address]. [phone] . Congestive heart Active Condition [place] failure [facility] Dysphagia Active Condition [facility] Empyema Active Condition [facility] End-stage renal Active Condition [place] disease [facility] Esophageal varices Active [facility] Ex-tobacco user Active Condition [facility] Gout (SCT [id number]) Active Condition [facility] Hemoptysis Active Condition [facility] Hiatal hernia Active Condition [facility] History of polyp of Active Condition [place] colon [facility] Impaired hearing Active Condition [facility] Leukopenia Active Condition [facility] Long-term current Active Condition Jun [place] use of 2021 Entered [facility] anticoagulant By: MARILYN ROBINS Comment: Indication: AF. Malnutrition Active Condition [place] [facility] Osteopenia Active Condition Jun 10, [place] 2021 Entered [facility] By: MARILYN ROBINS Comment: 05.31.2022 DXA. 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 Medications provided include 1) outpatient medications from the last 15 months, and 2) patient-reported medications. Medication Details Route Status Patient Prescription Prescription Last Ordering Order Source Instructions Expires Number Dispense Provider Date Date ALLOPURINOL TAKE ONE ORALLY ACTIVE JULIENNE, 05/30 / [place] 100MG TAB TABLET [facility] 2021 [place] V A BY [facility]TH [facility] EVERY DAY CALCITRIOL TAKE 1 ORALLY ACTIVE JULIENNE, 12/02/ [place] 0.25MCG CAP CAPSULE [facility] 2021 [place] S [facility] DIALYVITE TAKE ONE ORALLY ACTIVE JULIENNE, 03/19/ [place] TAB TABLET [facility] 2021 [place] [facility] AT BEDTIME DOCUSATE NA TAKE 1 ORALLY ACTIVE JULIENNE, 06/10/ [place] 100MG CAP CAPSULE [facility] 2021 [place] [facility] PRN METOPROLOL TAKE ORALLY ACTIVE JULIENNE, 03/27/ [place] TARTRATE ONE-HALF [facility] 2021 [place] [facility] 50MG TAB TABLET HCS BY MOUTH TWICE A DAY ONDANSETRON TAKE ONE ORALLY ACTIVE JULIENNE, 06/07 / [place] HCL 4MG TAB TABLET [facility] 2021 [place] [facility] EVERY 6 HOURS NEEDED PANTOPRAZOL TAKE ONE ORALLY ACTIVE JULIENNE, 05/14 / [place] NA 40MG TABLET 2021 [place] V A TAB,EC BY MOUTH HCS EVERY DAY SUCRALFATE TAKE 2 ORALLY ACTIVE JULIENNE, 06/07/ [place] 500MG/5ML TEASPOON [facility] 2021 [place] [facility] SUSP,ORAL SFUL BY HCS MOUTH EVERY 6 HOURS TORSEMIDE TAKE ONE ORALLY ACTIVE JULIENNE, 12/10/ [place] 20MG TAB TABLET [facility] 2021 [place] [facility] EVERY DAY Allergies, Adverse Reactions, Alerts Combined list of allergies from Department of Defense and Veterans Affairs facilities. It does not include entries that were removed or entered in error. Substance Category Reaction Severity Reaction Status Date Comments S ource type Reported CARBAMAZEPIN Propensity Propensity active [place] to adverse to adverse 2 [place] [facility] reactions reactions HCS to drug to drug (finding) (finding) FUROSEMIDE Propensity Propensity active [place] to adverse to adverse 2 [place] [facility] reactions reactions [facility] to drug to drug (finding) (finding) PROPAFENONE Propensity Propensity active [place] to adverse to adverse 2 [place] [facility] reactions reactions [facility]CS to drug to drug (finding) (finding) SUCRALFATE Propensity Propensity active [place] to adverse to adverse 2 [place] [facility] reactions reactions [facility]CS to drug to drug (finding) (finding) Immunizations Combined list of available immunizations from the Department of Defense and Veterans Affairs facilities. 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 2) Encounters from the Department of Defense facilities going back up to 280 months. Location Location Encounter Encounter Reason Attending ADM DC Stat us Disposition Source Details Type Number For Provider Date Date Visit Outpatient [id number] 05/14 [place] Encounter [id number] [facility] Outpatient [id number] Sandhya CASON 05/31 [place] Encounter [id number] ERR [facility] Outpatient [id number] Sandhya CASON 12/03 [place] Encounter [id number] ERR [facility] Outpatient [id number] Sandhya CASON 12/10 [place] Encounter [id number] ERR [place] [facility] Outpatient [id number] ARNEL REYES 02/10 [place] Encounter [id number] REBECCA L ANTONIO S [facility] Outpatient [id number] 02/28 [place] En[place] [id number] [place] [facility] Outpatient [id number] 04/02 [place] Encounter [id number] [facility] Outpatient [id number] SA SANDY 04/14 [place] En[place] [id number] R [facility] Outpatient [id number] [facility] 04/16 [place] Encounter [id number] RA R /[address] [facility] Outpatient [facility] 05/14 [place] En[place] [id number] RA R /[address] [facility] Outpatient [id number] [facility] 05/17 [place] En[place] [id number] RA R /[address] [facility] Outpatient [facility] 06/06 [place] En[place] [id number] RA R /[address] [facility] Outpatient [id number] [place] Encounter [id number] /[address] [facility] Social History Combined list of available smoking, tobacco, and other social history from Department of Defense andVeterans Affairs facilities. Social History Type Response Date Comment Source This section is an empty social history section. DoD
--- OUTSIDE RECORDS SUMMARY | 2022-06-14 06:17 | XMS_ITS | Encounter Summary ---
:1940 Author Organization [facility] Address [address] [place] [address] Support Name Relationship Address Phone SHAYY CARMONA Unavailable [address] [place] [address] SHAYY CARMONA Unavailable [address] [place] [address] Insurance Providers: All historical and current Section [...] MEDICARE MEDICARE PART Nov 19, PART A [id number] 800 Sandhya CARMONA (WNR) (M) A 2006 97A [phone] [place] MED[place] MEDICARE PART Nov 19, PART B [id number] 800 Sandhya CARMONA (WNR) (M) B 2006 97A [phone] [place] Selected Encounter This section includes the information on record at [place] for the Encounter. Date/Time Encounter Type Encounter Reason Provider Source Description Dec 10, 2021 07:47 Outpatient ADMIN PAT ACTIVTIES PAUL CASON PM Encounter (MASNONCT) IHE Encounter Template Text not used by [place] Plan of Treatment: Future Appointments (+ 6 months) and Future Tests (+/- 45 days) The Plan of Treatment section includes future care activities for the patient from all [place] treatmentfacilities. This section includes future appointments and future orders which are active, pending orscheduled.Future Appointments This section includes appointments that were scheduled to occur 6 months from the date of the Encounter, up to a maximum of 20 appointments. The data comes from all [place] treatment facilities. Appointment Date/Time Appointment Type Appointment Facili ty Name Feb 10, 2022 05:44 PM AMBULATORY - NONE [facility] Apr 02, 2022 03:23 PM AMBULATORY - NONE [facility] Apr 14, 2022 09:01 PM AMBULATORY - NONE [facility] Apr 16, 2022 02:34 PM AMBULATORY - NONE [facility] May 14, 2022 02:24 PM AMBULATORY - NONE [facility] May 17, 2022 08:28 AM AMBULATORY - NONE [facility] May 30, 2022 02:00 PM AMBULATORY - NONE [facility] Jun 06, 2022 10:14 PM AMBULATORY - NONE [facility] Encounter Notes: All associated encounter notes This section contains the clinical notes associated to the Encounter. Date/Time Encounter Note(s) Provider Source Dec 09, 2021 07:51 PM NONVA NOTE: JEANIE BELLA [facility] LOCAL TITLE: [facility] SELF PRESENTIN G CARE COORD PLAN STANDARD TITLE: NONVA NOTE DATE OF NOTE: DEC 09, 2021@19:51 ENTRY DATE: DEC 10, 2021@19:51:15 AUTHOR: JEANIE BELLA EXP COSIGNER: URGENCY: STATUS: COMPLETED [facility] SELF PRESENTING CARE CO ORD PLAN NOTE Has ADDENDA Emergency Notification Intake Date Presenting to the Facility: Nov Method of Contact: Notified from [employer] worklist Notification ID: [id number] [facility] [place] [facility] [place] [facility] Address: [address] City: [place] State: [place] Zip Code: [address] Phone : [facility] Point of Contact: Name: Latoya Joe Chief complaint: GI Bleed Primary Diagnosis: Disposition Discharged Date of discharge: Nov Discharge to home /paola/ JEANIE BELLA LIVESTOCK AUCTIONEER Signed: 12/10/2021 19:53 Receipt Acknowledged By: 12/13/2021 11:28 /paola/ PAUL CASON RN Utilization Management 02/02/2022 ADDENDUM STATUS: COMPLETED Faxed for records. /tahira CASON RN Utilization Management Signed: 02/02/2022 08:23 02/03/2022 ADDENDUM STATUS: COMPLETED [facility] 12/09/21 dx gi bleed note states transfererd to [facility] to [facility] for import Has packet request within 6 months for [place] w [facility] Care team /paola/ PAUL CASON RN Utilization Management Signed: 02/03/2022 13:21 Receipt Acknowledged By: 02/08/2022 13:43 /paola/ SÁNCHEZ REYES RN [facility] UTILIZATION MANAGEMENT 02/08/2022 ADDENDUM STATUS: COMPLETED DISCHARGE NOTE CLINICAL CARE COORDINATION INFORMATION Hospital Name: [facility] Admit date: 12-09-21 Discharge date: 12-11-21 Level [...] Discharge Disposition: Home DC Summary sent to [facility] for scanning Requested eligibility to mail a packet of inform ation to regarding VA benefits. /paola/ SÁNCHEZ REYES RN [facility] UTILIZATION MANAGEMENT Signed: 02/08/2022 13:53 02/08/2022 ADDENDUM STATUS: COMPLETED Updated ECR regarding transfer. /paola/ SÁNCHEZ REYES RN [facility] UTILIZATION MANAGEMENT Signed: 02/08/2022 13:53
--- OUTSIDE RECORDS SUMMARY | 2022-06-14 06:17 | XMS_ITS | Encounter Summary ---
:1940 Author Organization [facility] Address [address] [place] [address] Support Name Relationship Address Phone SHAYY CARMONA Unavailable [address] [place] [address] SHAYY CARMONA Unavailable [address] [facility] [place] [address] Insurance Providers: All historical and current Section [...] MEDICARE MEDICARE PART Nov 19, PART A [id number] 800 Sandhya CARMONA (WNR) (M) A 2006 97A [phone] [place] MED[place] MEDICARE PART Nov 19, PART B [id number] 800 Sandhya CARMONA (WNR) (M) B 2006 97A [phone] [place] Selected Encounter This section includes the information on record at [place] for the Encounter. Date/Time Encounter Type Encounter Reason Provider Source Description Dec 03, 2021 11:02 Outpatient ADMIN PAT ACTIVTIES PAUL CASON AM Encounter (MASNONCT) IHE Encounter Template Text [...] 10, 2021 07:47 PM AMBULATORY - NONE [facility] Feb 10, 2022 05:44 PM AMBULATORY - NONE [facility] Apr 02, 2022 03:23 PM AMBULATORY - NONE [facility] Apr 14, 2022 09:01 PM AMBULATORY - NONE [facility] Apr 16, 2022 02:34 PM AMBULATORY - NONE [facility] May 14, 2022 02:24 PM AMBULATORY - NONE [facility] May 17, 2022 08:28 AM AMBULATORY - NONE [facility] May 30, 2022 02:00 PM AMBULATORY - NONE [facility] Encounter Notes: All associated encounter notes This section contains the clinical notes associated to the Encounter. Date/Time Encounter Note(s) Provider Source 2021 03:52 PM NONVA NOTE: SÁNCHEZ REYES [facility] LOCAL TITLE: COMMUNITY CARE-GRIS SELF PRESENTIN [...] of Contact: Phone Centralized Call Center Notified [facility] [place] [place] Name: Hospital: [facility] Address: City: [place] State: [place] Zip Code: Phone : Community Facility Point of Contact: Name: Phone: Chief complaint: pleural empyema Primary Diagnosis: Disposition Admitted Route of Admission: Direct Admit Date of Admission: Nov Admitting Diagnosis: Pleural Empyema Community Care Provider: Confirm Level of Care: heidi/ SÁNCHEZ REYES RN [facility] UTILIZATION MANAGEMENT Signed: 12/13/2021 15:56 12/13/2021 ADDENDUM STATUS: COMPLETED DISCHARGE NOTE CLINICAL CARE COORDINATION INFORMATION Hospital Name: [facility] Admit date: 12-02-21 Discharge date: 12-08-21 Level [...] Admi tting/Central Scheduling 12/28/2021 8:[address] LUZ ELENAO THOR LOS 809 Radiology 12/28/2021 1:30 PM Peng Tinajero M.D. Pulmonary M edicine Discharge Disposition: Home Information obtained from hospital records in [facility] under Community Health Summaries and Documents sent to [facility] to be scann ed into [facility] electronic medical record in [facility] under Documents. Please review records when imported for any n eeded follow up and place appropriate specialty consults. /paola/ SÁNCHEZ REYES RN [facility] UTILIZATION MANAGEMENT Signed: 12/13/2021 16:01 12/13/2021 ADDENDUM STATUS: COMPLETED Requested eligibility to mail a packet of inform ation to regarding VA benefits. /paola/ SÁNCHEZ REYES RN [facility] UTILIZATION MANAGEMENT Signed: 12/13/2021 16:02 12/14/2021 ADDENDUM STATUS: COMPLETED NOTIFICATION ID: [id number] STATUS: Notify - Approved for 1703 /paola/ JEANIE BELLA PROFESSOR OF COMMUNICATION ARTS Signed: 12/14/2021 16:25 Dec 01, 2021 11:02 AM NONVA NOTE: HARPER LOONEY [facility] LOCAL TITLE: COMMUNITY CARE-GRIS SELF PRESENTIN G CARE COORD PLAN STANDARD TITLE: NONVA NOTE DATE OF NOTE: DEC 01, 2021@11:02 ENTRY DATE: DEC 03, 2021@11:03:03 AUTHOR: HARPER LOONEY EXP COSIGNER: URGENCY: STATUS: COMPLETED COMMUNITY CARE-[facility] SELF PRESENTING CARE CO ORD PLAN NOTE Has ADDENDA Emergency Notification Intake Date Presenting to the Facility: Nov Method of Contact: Notified from [employer] worklist Notification ID: [id number] [facility] Referral #: [facility] Hospital Name: Hospital: [facility] Address: [address] City: [place] State: [place] Zip Code: Phone : Community Facility Point of Contact: Name: JIGNESH WORRELL Chief complaint: CHEST PAIN Primary Diagnosis: Disposition Discharged Date of discharge: Nov Discharge to home /paola/ HARPER LOONEY ADMISSION Signed: 12/03/2021 11:05 Receipt Acknowledged By: 12/06/2021 12:52 /tahira CASON RN Utilization Management 12/06/2021 ADDENDUM STATUS: COMPLETED Faxed for records. /tahira CASON RN Utilization Management Signed: 12/06/2021 12:55 12/06/2021 ADDENDUM STATUS: COMPLETED No PACT listed in [facility]. Will send email for packet request to to : /paola/ PAUL CASON RN Utilization Management Signed: 12/06/2021 12:58 12/09/2021 ADDENDUM STATUS: COMPLETED [facility] 12/01/21 syncope Per note accepted and transferrd to [place], does not state which [facility] Information obtained from facility via f ax and sent to [facility] to be scanned into [facility] electronic medical record in [facility] under Documents. /paola/ PAUL CASON RN Utilization Management Signed: 12/09/2021 11:07 Receipt Acknowledged By: * AWAITING SIGNATURE * SÁNCHEZ REYES
--- OUTSIDE RECORDS SUMMARY | 2022-06-14 06:18 | XMS_ITS | Encounter Summary ---
:1940 Author Organization [facility] Address [address] [place] [address] Support Name Relationship Address Phone SHAYY CARMONA Unavailable [address] [place] [address] SHAYY CARMONA Unavailable [address] [place] [address] Insurance Providers: All historical and current Section [...] MEDICARE MEDICARE PART Nov 19, PART A [id number] 800 Sandhya CARMONA (WNR) (M) A 2006 97A [phone] [place] MED[place] MEDICARE PART Nov 19, PART B [id number] 800 Sandhya CARMONA (WNR) (M) B 2006 97A [phone] [place] Selected Encounter This section includes the information on record at [place] for the Encounter. Date/Time Encounter Type Encounter Reason Provider Source Description Jun 06, 2022 10:14 Outpatient ADMIN PAT ACTIVTIES LIDIA DELGADO PM Encounter (MASNONCT) IHE Encounter Template Text not used by [facility] Encounter Notes: All associated encounter notes This section contains the clinical notes associated to the Encounter. Date/Time Encounter Note(s) Provider Source Jun 05, 2022 10:00 AM NONVA NOTE: TAMERA [place] [facility] LOCAL TITLE: COMMUNITY CARE-GRIS SELF PRESENTIN G CARE COORD PLAN STANDARD TITLE: NONVA NOTE DATE OF NOTE: JUN 05, 2022@10:00 ENTRY DATE: JUN 06, 2022@22:15:20 AUTHOR: TAMERA [place] EXP COSIGNER: URGENCY: STATUS: COMPLETED [facility] SELF PRESENTING CARE CO ORD PLAN NOTE Has ADDENDA Emergency Notification Intake Date Presenting to the Facility: May Method of Contact: Notified from [employer] worklist Notification ID: [id number] Referral #: [facility] Name: Hospital: [facility] Address: 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 /paola/ LIDIA DELGADO RN REGISTERED NURSE Signed: 06/09/2022 16:16 06/10/2022 ADDENDUM STATUS: COMPLETED was seen in an outside ER on: 06/05/22 [facility] Diagnosis: Esophageal ulcer, peritoneal dialysis status, dematemesis Transferred to [facility] Medical records uploaded to [facility]. /paola/ LIDIA DELGADO RN REGISTERED NURSE Signed: 06/10/2022 15:01 Receipt Acknowledged By: * AWAITING SIGNATURE * SÁNCHEZ REYES
--- OUTSIDE RECORDS SUMMARY | 2022-06-14 06:18 | XMS_ITS | Encounter Summary ---
:1940 Author Organization [facility] Address [address] [place] [address] Support Name Relationship Address Phone SHAYY CARMONA Unavailable [address] [place] [address] SHAYY CARMONA Unavailable [address] [place] [address] Insurance Providers: All historical and current Section [...] MEDICARE MEDICARE PART Nov 19, PART A [id number] 800 Sandhya CARMONA (WNR) (M) A 2006 97A [id number] [place] MED[place] MEDICARE PART Nov 19, PART B [id number] 800 Sandhya CARMONA (WNR) (M) B 2006 97A [phone] [place] Selected Encounter This section includes the information on record at [place] for the Encounter. Date/Time Encounter Type Encounter Description Reason Provider Source Apr 02, 2022 03:23 Outpatient Encounter ADMIN PAT ACTIVTIES PM (MASNONCT) IHE Encounter Template Text not used by [place] Plan of Treatment: Future Appointments (+ 6 months) and Future Tests (+/- 45 days) The Plan of Treatment section includes future care activities for the patient from all [place] treatmentfacilities. This section includes future appointments and future orders which are active, pending orscheduled.Future Appointments This section includes appointments that were scheduled to occur 6 months from the date of the Encounter, up to a maximum of 20 appointments. The data comes from all [place] treatment facilities. Appointment Date/Time Appointment Type Appointment Facili ty Name Apr 14, 2022 09:01 PM AMBULATORY - NONE [facility] Apr 16, 2022 02:34 PM AMBULATORY - NONE [facility] May 14, 2022 02:24 PM AMBULATORY - NONE [facility] May 17, 2022 08:28 AM AMBULATORY - NONE [facility] May 30, 2022 02:00 PM AMBULATORY - NONE [facility] Jun 06, 2022 10:14 PM AMBULATORY - NONE [facility]
--- OUTSIDE RECORDS SUMMARY | 2022-06-14 06:18 | XMS_ITS | Encounter Summary ---
:1940 Author Organization [facility] Address [address] [place] [address] Support Name Relationship Address Phone SHAYY CARMONA Unavailable [address] [place] [address] SHAYY CARMONA Unavailable [address] [facility] [place] [place] [address] Insurance Providers: All historical and current Section [...] MEDICARE MEDICARE PART Nov 19, PART A [id number] 800 Sandhya CARMONA (WNR) (M) A 2006 97A [phone] [place] MEDIC[place] MEDICARE PART Nov 19, PART B [id number] 800 MATHEWT Ki LAYNE (WNR) (M) B 2006 97A [phone] [place] Selected Encounter This section includes the information on record at ID for the Encounter. Date/Time Encounter Type Encounter Reason Provider Source Description May 14, 2022 02:24 Outpatient ADMIN PAT ACTIVTIES LIDIA DELGADO PM Encounter (MASNONCT) IHE Encounter Template Text not used by ID Plan of Treatment: Future Appointments (+ 6 months) and Future Tests (+/- 45 days) The Plan of Treatment section includes future care activities for the patient from all ID treatmentfacilities. This section includes future appointments and future orders which are active, pending orscheduled.Future Appointments This section includes appointments that were scheduled to occur 6 months from the date of the Encounter, up to a maximum of 20 appointments. The data comes from all ID treatment facilities. Appointment Date/Time Appointment Type Appointment Facili ty Name May 17, 2022 08:28 AM AMBULATORY - NONE [facility] May 30, 2022 02:00 PM AMBULATORY - NONE [facility] Jun 06, 2022 10:14 PM AMBULATORY - NONE [facility] Encounter Notes: All associated encounter notes This section contains the clinical notes associated to the Encounter. Date/Time Encounter Note(s) Provider Source May 13, 2022 10:00 AM NONVA NOTE: TAMERA KINGSTONRANJIT Guevara [facility] LOCAL TITLE: COMMUNITY CARE-GRIS SELF PRESENTIN G CARE COORD PLAN STANDARD TITLE: NONVA NOTE DATE OF NOTE: MAY 13, 2022@10:00 ENTRY DATE: MAY 14, 2022@14:26:18 AUTHOR: TAMERA KINGSTON EXP COSIGNER: URGENCY: STATUS: COMPLETED COMMUNITY CARE-GRIS SELF PRESENTING CARE CO ORD PLAN NOTE Has ADDENDA Emergency Notification Intake Date Presenting to the Facility: Apr Method of Contact: Notified from [employer] Notification ID: [id number] [facility] Referral #: [facility] Name: Hospital: [facility] Address: [address] [place] [address] City: [place] State: [place] Zip Code: [facility] Point of Contact: Name: Chief complaint: HEMATEMESIS/MELENA Primary Diagnosis: Disposition Unknown at time of intake note entry POM Review /paola/ TAMERA KINGSTON TMD TEACHER ASSISTANT ON DUTY Signed: 05/14/2022 14:31 Receipt Acknowledged By: 05/17/2022 08:27 /paola/ LIDIA DELGADO RN REGISTERED NURSE 05/17/2022 ADDENDUM STATUS: COMPLETED Records requested for this episode of care and w ill be sent to [facility] for uploading when received. /paola/ LIDIA DELGADO RN REGISTERED NURSE Signed: 05/17/2022 08:28 05/17/2022 ADDENDUM STATUS: COMPLETED was seen in an outside ER on: 05/13/22 [facility] Diagnosis: GI bleed Transferred to [facility] for further GI care Medical records uploaded to [employer]. /paola/ LIDIA DELGADO RN REGISTERED NURSE Signed: 05/17/2022 13:58
--- OUTSIDE RECORDS SUMMARY | 2022-06-14 06:18 | XMS_ITS | Encounter Summary ---
:[address] [facility] Address [address] [place] [address] Support Name Relationship Address Phone SHAYY CARMONA Unavailable [address] [place] [address] SHAYY CARMONA Unavailable [address] [place] [address] Insurance Providers: All historical and current Section [...] MEDICARE MEDICARE PART Nov 19, PART A [id number] 800 Sandhya CARMONA (WNR) (M) A 2006 97A [phone] [facility] MEDICARE MEDICARE PART Nov 19, PART B [id number] 800 Sandhya CARMONA (WNR) (M) B 2006 97A [phone] [place] Selected Encounter This section includes the information on record at [place] for the Encounter. Date/Time Encounter Type Encounter Description Reason Provider Source Feb 28, 2022 08:38 Outpatient Encounter TELEPHONE/MEDICINE AM IHE Encounter Template Text not used by [place] Plan of Treatment: Future Appointments (+ 6 months) and Future Tests (+/- 45 days) The Plan of Treatment section includes future care activities for the patient from all [place] treatmentfacilities. This section includes future appointments and future orders which are active, pending orscheduled.Future Appointments This section includes appointments that were scheduled to occur 6 months from the date of the Encounter, up to a maximum of 20 appointments. The data comes from all [place] treatment facilities. Appointment Date/Time Appointment Type Appointment Facili ty Name Apr 02, 2022 03:23 PM AMBULATORY - NONE [facility] Apr 14, 2022 09:01 PM AMBULATORY - NONE [facility] Apr 16, 2022 02:34 PM AMBULATORY - NONE [facility] May 14, 2022 02:24 PM AMBULATORY - NONE [facility] May 17, 2022 08:28 AM AMBULATORY - NONE [facility] May 30, 2022 02:00 PM AMBULATORY - NONE [facility] Jun 06, 2022 10:14 PM AMBULATORY - NONE [facility] Encounter Notes: All associated encounter notes This section contains the clinical notes associated to the Encounter. Date/Time Encounter Note(s) Provider Source Feb 28, 2022 08:38 AM PRIMARY CARE NOTE: KAMILLA FOSTER [facility] LOCAL TITLE: PC REFERRAL TEAM NOTE STANDARD TITLE: PRIMARY CARE NOTE DATE OF NOTE: FEB 28, 2022@08:38 ENTRY DATE: FEB 28, 2022@08:39:01 AUTHOR: KAMILLA FOSTER COSIGNER: URGENCY: STATUS: COMPLETED PC REFERRAL TEAM NOTE Has ADDENDA Drive time from home address to nearest [place] clinic: 51 mins to [facility] per [facility] advised on the following: Authorization will 36 5 days after the first initial appointment with the non-VA Primary Care provider. One month prior to the consult expiration, if [place] wishes to be considered for exte nsion of non-VA care, needs to contact their non-VA provider to fax a renewal r equest to the [facility]. If the non-VA provider reque sts equipment or refers to another provider, the VA must be notified prior to this equipment being issued or the attending any other non-VA appointments. [place] will stay assigned to their [facility] Provider, if established. If prefers to receiv e medications from VA, they will need to be written by the non-VA provider and faxed to the VA pharm acy at [phone]. If a medication is needed urgently, provide t he non-VA pharmacy with the following: RxBIN: [id number] - RxPCN: [facility] - RxGrp: HAC. Anticoagulants will be managed by the non-VA pro vider. If currently enrolled with the [place] anti-coagulation clinic, the [place] will be unenrolled. It will be the responsibility of the non-VA provider to shanika ck Veterans labs and dose [place] accordingly. [place] provided with [employer] car cleaning supervisor RN ca se managers name and direct phone number. Instructed to cont act the case repairer for any questions related to non-VA care, especially if care to an other specialist has been recommended and they are unclear if these servic es have been pre-authorized. Instructed the [place] of th e hospital notification process and provided with phone number, , to call within 72 hours of presenting to an outside facility for emergency care or hospitali zation. Care team members being alerted: [facility] Provider: Dr. Escamilla [facility] client operations manager : Daniel Costa for case management and tracking purposes [place] verbalized understanding of abov e instructions and a letter with above instructions was mailed to [place]. /es/ KAMILLA FOSTER RN Referral Coordination Utilities And Maintenance Supervisor Signed: 02/28/2022 09:13 Receipt Acknowledged By: 02/28/2022 12:09 /es/ ZAYDA ESCAMILLA MD STAFF PHYSICIAN 03/03/2022 15:23 /es/ Daniel Costa RN, BSN ship yard electrical person Ticket Puller 03/03/2022 ADDENDUM STATUS: COMPLETED [place] is well-insured via other source s but wanted to establish primary care through the VA. He is on hem od[facility] at [facility] and gets his specialty care there. He is aware that the VA cannot appro ve any care at that [place] location. He lives within 60 minutes of the [facility] and there is no hardship consult in place. /es/ Daniel Costa, RN, BSN ship yard electrical person Ticket Puller Signed: 03/03/2022 15:26
--- OUTSIDE RECORDS SUMMARY | 2022-06-14 06:18 | XMS_ITS | Encounter Summary ---
:1940 Author Organization [facility] Address [address] [place] [address] Support Name Relationship Address Phone SHAYY CARMONA Unavailable [address] [place] [address] SHAYY CARMONA Unavailable [address] [facility] [place] [address] Insurance Providers: All historical and current Section [...] MEDICARE MEDICARE PART Nov 19, PART A [id number] 800 Sandhya CARMONA (WNR) (M) A 2006 97A [phone] [place] MEDIC[place] MEDICARE PART Nov 19, PART B [id number] 800 Sandhya CARMONA (WNR) (M) B 2006 97A [phone] [place] Selected Encounter This section includes the information on record at MD for the Encounter. Date/Time Encounter Type Encounter Reason Provider Source Description May 17, 2022 08:28 Outpatient ADMIN PAT ACTIVTIES LIDIA DELGADO AM Encounter (SubtechNONCT) IHE Encounter Template Text not used by MD Plan of Treatment: Future Appointments (+ 6 months) and Future Tests (+/- 45 days) The Plan of Treatment section includes future care activities for the patient from all [place] treatmentfacilities. This section includes future appointments and future orders which are active, pending orscheduled.Future Appointments This section includes appointments that were scheduled to occur 6 months from the date of the Encounter, up to a maximum of 20 appointments. The data comes from all [place] treatment facilities. Appointment Date/Time Appointment Type Appointment Facili ty Name May 30, 2022 02:00 PM AMBULATORY - NONE [facility] Jun 06, 2022 10:14 PM AMBULATORY - NONE [facility] Encounter Notes: All associated encounter notes This section contains the clinical notes associated to the Encounter. Date/Time Encounter Note(s) Provider Source May 13, 2022 08:29 NONVA NOTE: EUGENE CRONIN [facility] AM LOCAL TITLE: COMMUNITY CARE-GRIS SELF PRESENTIN G CARE COORD PLAN STANDARD TITLE: NONVA NOTE DATE OF NOTE: MAY 13, 2022@08:29 ENTRY DATE: MAY 17, 2022@08:29:27 AUTHOR: EUGENE CRONIN EXP COSIGNER: URGENCY: STATUS: COMPLETED COMMUNITY CARE-GRIS SELF PRESENTING CARE CO ORD PLAN NOTE Has ADDENDA Emergency Notification Intake Date Presenting to the Facility: Apr Method of Contact: Notified from [employer] Notification ID: [id number] [facility] Referral #: [facility] Name: Hospital: [facility] Address: [address] [place] [address] City: [place] State: [place] Zip Code: [address] Phone : [facility] Point of Contact: Name: [facility] Chief complaint: COFFEE GROUND EMESIS Primary Diagnosis: COFFEE GROUND EMESIS Disposition Admitted Route of Admission: Date of Admission: Apr Admitting Diagnosis: COFFEE GROUND EMESIS [facility] Provider: Confirm Level of Care: /paola/ EUGENE CRONIN MEDICAL TRANSITIONAL KINDERGARTEN TEACHER Signed: 05/17/2022 08:31 Receipt Acknowledged By: 05/17/2022 14:00 /paola/ LIDIA DELGADO RN REGISTERED NURSE 05/17/2022 ADDENDUM STATUS: COMPLETED Hospital Discharge note Hospital: [facility] Admit date: 05/13/22 Discharge date: 05/14/22 Discharge diagnosis: Gastrointestinal hemorrhage with hematemesis (Pr imary Dx); Gastrointestinal hemorrhage, unspecified gastroi ntestinal hemorrhage type Disposition: home Follow up: PCP. Follow-up with [facility] in 1-2 weeks as outpatient[address] Dr. Ozuna, recommend stopping coumadin for a -fib due to multiple bleeding episodes and may need to pursue other a-fib treatment options through his right of way buyer/EP - - -Recommend outpatient manometry. Information obtained from vt dical records received and sent to [facility] for import. Outreach packet to be sent t o as they currently do not have a PACT team assigned. /paola/ LIDIA DELGADO RN REGISTERED NURSE Signed: 05/17/2022 14:05
--- OUTSIDE RECORDS SUMMARY | 2022-06-14 06:18 | XMS_ITS | Encounter Summary ---
:1940 Author Organization [facility] Address [address] [place] [address] Support Name Relationship Address Phone SHAYY CARMONA Unavailable [address] [place] [address] SHAYY CARMONA Unavailable [address] [place] [address] Insurance Providers: All historical and current Section [...] MEDICARE MEDICARE PART Nov 19, PART A [id number] 800 Sandhya CARMONA (WNR) (M) A 2006 97A [phone] [place] MED[place] MEDICARE PART Nov 19, PART B [id number] 800 Sandhya CARMONA (WNR) (M) B 2006 [...] Appointment Type Appointment Facili ty Name May 14, 2022 02:24 PM AMBULATORY - NONE [facility] May 17, 2022 08:28 AM AMBULATORY - NONE [facility] May 30, 2022 02:00 PM AMBULATORY - NONE [facility] Jun 06, 2022 10:14 PM AMBULATORY - NONE [facility] Encounter Notes: All associated encounter notes This section contains the clinical notes associated to the Encounter. Date/Time Encounter Note(s) Provider Source Apr 14, 2022 02:34 NONVA NOTE: CLAUDIA NIÑO [facility] PM LOCAL TITLE: COMMUNITY CARE-GRIS SELF PRESENTIN G CARE COORD PLAN N STANDARD TITLE: NONVA NOTE DATE OF NOTE: APR 14, 2022@14:34 ENTRY DATE: APR 16, 2022@14:34:39 AUTHOR: CLAUDIA NIÑO EXP COSIGNER: URGENCY: STATUS: COMPLETED COMMUNITY CARE-GRIS SELF PRESENTING CARE CO ORD PLAN NOTE Has ADDENDA Emergency Notification Intake Date Presenting to the Facility: Mar Method of Contact: Notified from [employer] worklist Notification ID: [id number] [facility] Referral #: [facility] Name: Hospital: [facility] Address: City: [place] State: [place] Zip Code: Phone : [facility] Point of Contact: Name: [facility] Chief complaint: VOMITING AND DIZZINESS Primary Diagnosis: Disposition Unknown at time of intake note entry 04/16/2022 2:09:42 PM CDT Brandy Cobb CORECTION USED ES JLV IS DOWN 04/16/2022 2:08:49 PM CDT Brandy Cobb APPROVED 1703 CHECK FOR DUPL ICATES NONE FOUND. CHECK FOR OHI,24 MONTH. USED ABENA TO VERIFY ALL INFORMATION. SENT EMAIL /paola/ CLAUDIA NIÑO RESEARCH AND DEVELOPMENT SPECIALIST Signed: 04/16/2022 14:35 Receipt Acknowledged By: 04/21/2022 11:12 /paola/ LIDIA DELGADO RN REGISTERED NURSE 04/21/2022 ADDENDUM STATUS: COMPLETED Hospital Discharge note Hospital: [facility] Admit date: 04/14/22 Discharge date: 04/16/22 [...] follow up with gastroenterology Information obtained from ms dical records received and sent to [facility] for import. Outreach packet to be sent t o as they currently do not have a PACT team assigned. /paola/ LIDIA DELGADO RN REGISTERED NURSE Signed: 04/21/2022 11:19
--- OUTSIDE RECORDS SUMMARY | 2022-06-14 06:18 | XMS_ITS | Encounter Summary ---
:1940 Author Organization [facility] Address [address] [place] [address] Support Name Relationship Address Phone SHAYY CARMONA Unavailable [address] [place] [address] SHAYY CARMONA Unavailable [address] [facility] [place] [address] Insurance Providers: All historical and current Section [...] MEDICARE MEDICARE PART Nov 19, PART A [id number] 800 Sandhya CARMONA ATIENT (WNR) (M) A 2006 97A [id number] [place] MED[place] MEDICARE PART Nov 19, PART B [id number] 800 MATHEWT P ATIENT (WNR) (M) B 2006 97A [...] 02, 2022 03:23 PM AMBULATORY - NONE [facility] Apr 14, 2022 09:01 PM AMBULATORY - NONE [facility] Apr 16, 2022 02:34 PM AMBULATORY - NONE [facility] May 14, 2022 02:24 PM AMBULATORY - NONE [facility] May 17, 2022 08:28 AM AMBULATORY - NONE [facility] May 30, 2022 02:00 PM AMBULATORY - NONE [facility] Jun 06, 2022 10:14 PM AMBULATORY - NONE [facility] Encounter Notes: All associated encounter notes This section contains the clinical notes associated to the Encounter. Date/Time Encounter Note(s) Provider Source Dec 09, 2021 05:53 PM NONVA NOTE: JEANIE BELLA [facility] LOCAL TITLE: COMMUNITY CARE-GRIS SELF PRESENTIN G CARE COORD PLAN STANDARD TITLE: NONVA NOTE DATE OF NOTE: DEC 09, 2021@17:53 ENTRY DATE: FEB 10, 2022@17:53:26 AUTHOR: JEANIE BELLA EXP COSIGNER: URGENCY: STATUS: COMPLETED COMMUNITY CARE-GRIS SELF PRESENTING CARE CO ORD PLAN NOTE Has ADDENDA Emergency Notification Intake Date Presenting to the Facility: Nov Method of Contact: Notified from [employer] worklist Notification ID: [id number] [facility] Referral #: [facility] Name: Hospital: [facility] Address: [address] [place] [address] City: [place] State: [place] Zip Code: [address] Phone : [facility] Point of Contact: Name: Chief complaint: GI BLEED Primary Diagnosis: Disposition Admitted Route of Admission: Other: Date of Admission: Nov Admitting Diagnosis: GI BLEED [facility] Provider: Confirm Level of Care: /paola/ JEANIE BELLA OFFBEARER Signed: 02/10/2022 17:54 Receipt Acknowledged By: 02/15/2022 08:47 /paola/ SÁNCHEZ REYES RN [facility] UTILIZATION MANAGEMENT 02/15/2022 ADDENDUM STATUS: COMPLETED Duplicate entry /tahira REYES RN [facility] UTILIZATION MANAGEMENT Signed: 02/15/2022 08:48
--- OUTSIDE RECORDS SUMMARY | 2022-06-14 06:18 | XMS_ITS | Encounter Summary ---
:1940 Author Organization [facility] Address [address] [place] [address] Support Name Relationship Address Phone SHAYY CARMONA Unavailable [address] [address] SHAYY CARMONA Unavailable [address] [facility] [place] [place] [address] Insurance Providers: All historical and current Section [...] MEDICARE MEDICARE PART Nov 19, PART A [id number] 800 Sandhya CARMONA (WNR) (M) A 2006 97A [phone] [place] MEDICARE MEDICARE PART Nov 19, PART B [id number] 800 MATHEWT Ki LAYNE (WNR) (M) B 2006 97A [phone] [place] Selected Encounter This section includes the information on record at [place] for the Encounter. Date/Time Encounter Type Encounter Reason Provider Source Description Apr 14, 2022 09:01 Outpatient ADMIN PAT ACTIVTIES LIDIA DELGADO PM Encounter (MASNONCT) IHE Encounter Template Text not used by [place] Plan of Treatment: Future Appointments (+ 6 months) and Future Tests (+/- 45 days) The Plan of Treatment section includes future care activities for the patient from all [place] treatmentfacilities. This section includes future appointments and future orders which are active, pending orscheduled.Future Appointments This section includes appointments that were scheduled to occur 6 months from the date of the Encounter, up to a maximum of 20 appointments. The data comes from all [place] treatment facilities. Appointment Date/Time Appointment Type Appointment Facili ty Name Apr 16, 2022 02:34 PM AMBULATORY - NONE [facility] May 14, 2022 02:24 PM AMBULATORY - NONE [facility] May 17, 2022 08:28 AM AMBULATORY - NONE [facility] May 30, 2022 02:00 PM AMBULATORY - NONE [facility] Jun 06, 2022 10:14 PM AMBULATORY - NONE [facility] Encounter Notes: All associated encounter notes This section contains the clinical notes associated to the Encounter. Date/Time Encounter Note(s) Provider Source Apr 13, 2022 09:01 PM NONVA NOTE: HEENA CRISOSTOMO [facility] LOCAL TITLE: COMMUNITY CARE-GRIS SELF PRESENTIN G CARE COORD PLAN STANDARD TITLE: NONVA NOTE DATE OF NOTE: APR 13, 2022@21:01 ENTRY DATE: APR 14, 2022@21:02:06 AUTHOR: HEENA CRISOSTOMO EXP COSIGNER: URGENCY: STATUS: COMPLETED COMMUNITY CARE-GRIS SELF PRESENTING CARE CO ORD PLAN NOTE Has ADDENDA Emergency Notification Intake Date Presenting to the Facility: Mar Method of Contact: Notified from [employer] worklist Notification ID: [id number] [facility] Referral #: [facility] Name: Hospital: [facility] [place] [place] Address: City: [place] State: [place] Zip Code: Phone : [facility] Facility Point of Contact: Name: Tangela Lara Chief complaint: ACHALASIA Primary Diagnosis: Disposition Discharged Date of discharge: Mar Discharge to home 04/14/2022 8:56:14 PM KULWINDER Romero ADDED ADDRESS, VET INFO PER V. , [address] NOT, NETWORK DETERMINATION, PRUDENT LAYPERSON, [place] AVAILABILITY. POM REVIEW /paola/ HEENA REYES, MATERIAL PROCESSOR Signed: 04/14/2022 21:03 Receipt Acknowledged By: 04/21/2022 11:12 /es/ LIDIA DELGADO RN REGISTERED NURSE 04/21/2022 ADDENDUM STATUS: COMPLETED was seen in an outside ER on: 04/13/22 No [place] Diagnosis: Weakness, achalasia of espohagus, vom iting Transferred to [facility] Medical records received and sent to [facility] for im port. Please review records when imported for any need ed follow up. /paola/ LIDIA DELGADO RN REGISTERED NURSE Signed: 04/21/2022 13:36
--- OUTSIDE RECORDS SUMMARY | 2022-06-14 06:18 | XMS_ITS | Encounter Summary ---
:1940 Author Organization [facility] Address [address] [place] [id number] Support Name Relationship Address Phone SHAYY CARMONA Unavailable [address] [place] [address] SHAYY CARMONA Unavailable [address] [place] [address] Insurance Providers: All historical and current Section [...] MEDICARE MEDICARE PART Nov 19, PART A [id number] Sandhya CARMONA P ROVERTO (WNR) (M) A 2006 97A [phone] [place] MED[place] MEDICARE PART Nov 19, PART B [id number] 800 Sandhya CARMONA (WNR) (M) B 2006 97A [phone] [place] Selected Encounter This section includes the information on record at [facility] for the Encounter. Date/Time Encounter Type Encounter Description Reason Provider Source Jun 08, 2022 12:00 Outpatient Encounter COMMUNITY CARE AM CONSULT [facility] Encounter Template Text not used by [facility] Encounter Notes: All associated encounter notes This section contains the clinical notes associated to the Encounter. Date/Time Encounter Note(s) Provider Source Jun 08, 2022 12:00 AM NONVA CONSULT: VIPIN JEFFERSON [facility] LOCAL TITLE: COMMUNITY CARE CONSULT RESULT PRIM RYANN CARE STANDARD TITLE: NONVA CONSULT DATE OF NOTE: JUN 08, 2022 ENTRY DATE: JUN 10 022@14:14:24 AUTHOR: VIPIN JEFFERSON EXP COSIGNER: URGENCY: STATUS: COMPLETED COMMUNITY CARE CONSULT RESULT PRIMARY CARE Has ADDENDA [facility] - Scanned Document COMMUNITY CARE-PRIMARY CARE [facility] APPOINTMENT INFORMATION Documentation received from non-VA provider and scanned into [facility]. /paola/ RPA PROCESS Signed: 06/10/2022 14:14 06/10/2022 ADDENDUM STATUS: COMPLETED Records have been reviewed in [facility]. CPRS Problem List, Allergies, and Medications mcdowell ve been updated with the provided information. Record reflects that is established with cardiology in community. No [facility] consults ordered at this time. [facility]. /paola/ Marcelo Bains MD Staff Physician Signed: 06/10/2022 16:56 Receipt Acknowledged By: 06/10/2022 16:59 /paola/ ZAYDA ESCAMILLA MD STAFF PHYSICIAN 06/10/2022 ADDENDUM STATUS: COMPLETED Alerting Chuck Wood that pt has established car e with: [facility] [address] [place] [address] under [facility] consult #[id number]. Re spectfully requesting that Rubi Wood update . This pattern chart writer is wanda espinosa /paola/ ZAYDA ESCAMILLA MD STAFF PHYSICIAN Signed: 06/10/2022 17:01 Receipt Acknowledged By: * AWAITING SIGNATURE * CHUCK WOOD
--- OUTSIDE RECORDS SUMMARY | 2022-06-14 06:19 | XMS_ITS | Encounter Summary ---
:1940 Author Organization [facility] Address [address] [place] [address] Care Team Providers Name Role Phone Elsewhere, Pcp Primary Care Provider Unavailable Reason for Referral Outpatient (Routine) - Authorized Specialty Diagnoses / Procedures Referred By Contact Refer red To Contact Diagnoses Achalasia Maurice Smyth, [facility] Procedures External Esophageal pH Testing Wireless Interpretation Trinh, Ph.D. [address] [place] [address] [phone] Referral ID Status Reason Start Date Expiration Date Visits V isits Requested Authorized [id number] Authorized 06/09/2022 06/09/2023 1 1 Encounter Details Date Type Department Care Team Description 06/09/2022 Clinical Communication Division of [facility], Gastroenterology in Maurice Mendes M.D., [place], [place] Ph.D. [address] [place] [address] [place] [phone] [place], [place] [phone] Social History Tobacco Use Types Packs/Day Years [...] drinks on one occasion? No t asked Social Isolation Answer Date Recorded In a typical week, how many times do you Patient refused 04/11/2022 talk on the phone with family, friends, or neighbors? How often do you get together with friends Patient refused 04/11/2022 or relatives? How often do you attend yazdanism or jewish More than 4 time s per year 04/11/2022 services? Do you belong to any clubs or organizations Yes 04/11/2022 such as yazdanism groups, unions, [employer] or athletic groups, or school groups? How [...] Encounters Date Type Specialty Care Team Description 06/16/2022 Clinical Support Nutrition Ankita Smyth M.D., Ph.D. [address] [place] [phone] Ace Morris, JANY, LD [address] [place] [phone] 06/20/2022 Comprehensive Visit Gastroenterology and [facility], Hepatology Maurice Mendes M.D., Ph.D. [address] [place] [phone] 06/22/2022 Appointment Radiology Maurice Smyth M.D., Ph.D. [address] [place] [phone] 07/12/2022 Clinical Communication Admitting/Central Scheduling 08/31/2022 Appointment Gastroenterology and [facility] Hepatology Maurice Mendes M.D., Ph.D. [address] [place] [phone] 09/01/2022 Appointment Gastroenterology dari Smyth Hepatology Maurice Mendes M.D., Ph.D. [address] [place] [phone] 09/05/2022 Appointment Gastroenterology dari Smyth Hepatology Maurice Mendes M.D., Ph.D. [address] [place] [phone] Scheduled Orders Name Type Priority Associated Diagnoses Order S chedule External Esophageal pH GI Routine Achalasia Expec herminia: 06/09/2022 Testing Wireless (Approximat e), Interpretation Expires: 08/22 documented as of this encounter Visit Diagnoses Diagnosis Achalasia - Primary documented in this encounter Care Teams Art Supervisor Relationship Specialty Start Date End Date Elsewhere, Pcp PCP - General Internal Medicine 06/05/22 documented as of this encounter
--- OUTSIDE RECORDS SUMMARY | 2022-06-14 06:19 | XMS_ITS | Encounter Summary ---
:1940 Author Organization [facility] Address [address] [place] [address] Care Team Providers Name Role Phone Elsewhere, Pcp Primary Care Provider Unavailable Encounter Details Date Type Department Care Team Description 06/07/2022 Clinical Communication Division of [facility], Gastroenterology in Maurice Mendes M.D., [place], [place] Ph.D. [address] [facility] [address] [place] [phone] [place], [place] [phone] Social History Tobacco Use Types Packs/Day Years [...] How often do you attend presybeterian or taoism More than 4 time s per year [...] Support Nutrition Ankita Smyth M.D., Ph.D. [address] [place] [phone] Ace Morris, JANY, [address] [place] [phone] 06/20/2022 Comprehensive Visit Gastroenterology and [facility] Hepatology Maurice Mendes M.D., Ph.D. [address] [place] [phone] 06/22/2022 Appointment Radiology Maurice Smyth M.D., Ph.D. [address] [place] [phone] 07/12/2022 Clinical Communication Admitting/Central Scheduling 08/31/2022 Appointment Gastroenterology and [facility] Hepatology Maurice Mendes M.D., Ph.D. [address] [place] [phone] 09/01/2022 Appointment Gastroenterology and [facility] Hepat[facility] Maurice Mendes M.D., Ph.D. [address] [place] [phone] 09/05/2022 Appointment Gastroenterology and [facility] Hepatology Maurice Mendes M.D., Ph.D. [address] [place] [phone] documented as of this encounter Visit Diagnoses Not on filedocumented in this encounter Care Teams School Speech Therapist Relationship Specialty Start Date End Date Elsewhere, Pcp PCP - General Internal Medicine 06/05/22 documented as of this encounter
--- OUTSIDE RECORDS SUMMARY | 2022-06-14 06:19 | XMS_ITS | Encounter Summary ---
:1940 Author Organization [facility] Address [address] [place] [address] Care Team Providers Name Role Phone Elsewhere, Pcp Primary Care Provider Unavailable Reason for Referral Outpatient (Routine) - Authorized Specialty Diagnoses / Procedures Referred By Contact Refer red To Contact Nutrition Diagnoses Achalasia Maurice Smyth M.D., Ph.D. [facility] [address] [place] [phone] Referral ID Status Reason Start Date Expiration Date Visits V isits Requested Authorized [id number] Authorized 06/07/2022 06/07/2023 1 1 Encounter Details Date Type Department Care Team Description 06/07/2022 Clinical Communication Division of [facility], Gastroenterology in Maurice Mendes M.D., [place], [place] Ph.D. [address] [place] [address] [place] [phone] [place], [place] [phone] Social History Tobacco Use Types Packs/Day Years [...] How often do you attend cheondoism or hindu More than 4 time s per year 04/11/2022 services? Do you belong to any clubs or organizations Yes 04/11/2022 such as cheondoism groups, unions, [employer] or athletic groups, or school groups? How [...] Support Nutrition Ankita Smyth M.D., Ph.D. [address] [place] [phone] Ace Morris, JANY, LD [address] [place] [phone] 06/20/2022 Comprehensive Visit Gastroenterology and [facility], Hepatology Maurice Mendes M.D., Ph.D. [address] [place] [address] [phone] 06/22/2022 Appointment Radiology Maurice Smyth M.D., Ph.D. [address] [place] [phone] 07/12/2022 Clinical Communication Admitting/Central Scheduling 08/31/2022 Appointment Gastroenterology and [facility] Hepat[facility] Maurice Mendes M.D., Ph.D. [address] [place] [phone] 09/01/2022 Appointment Gastroenterology and [facility] Hepat[facility] Maurice Mendes M.D., Ph.D. [address] [place] [phone] 09/05/2022 Appointment Gastroenterology and [facility] Hepatology Maurice Mendes M.D., Ph.D. [address] [place] [phone] Scheduled Referrals Name Type Priority Associated Order Schedule Diagnoses Nutrition - Outpatient Routine Achalasia Expected: Gastroenterology medical Referral nutrition therapy (Approxima te), consult (clinic) Expires: 09/07/2023 documented as of this encounter Visit Diagnoses Diagnosis Achalasia - Primary documented in this encounter Care Teams Systems Mechanic Relationship Specialty Start Date End Date Elsewhere, Pcp PCP - General Internal Medicine 06/05/22 documented as of this encounter
--- OUTSIDE RECORDS SUMMARY | 2022-06-14 06:19 | XMS_ITS ---
:1940 Author Organization [facility] Address [address] [place] [address] Care Team Providers Name Role Phone Elsewhere, Pcp Primary Care Provider Unavailable Dialysis Plan of Treatment Dialysis Prescription As-Of Date Prescribed Dry Weight Primary Setting 06/06/2022 Acute Dialysis [facility] Instructions Modality Start Time Dwell Time (hours) Dextrose Stre ngth Continuous Cycling Peritoneal Dialysis Dialysis Access Type Location from Last 30 Days Procedures Procedure Name Priority Date/Time Associated Comments Diagnosis RENAL FUNCTION PANEL, S Routine 06/07/2022 4:45 R esults for this AM CDT procedure are i n the results section. CBC WITH DIFFERENTIAL, B Routine 06/07/2022 4:45 Results for this AM CDT procedure are i n the results section. HEMOGLOBIN, B Timed 06/06/2022 4:16 Results for this PM CDT procedure are i n the results section. SURGICAL PATHOLOGY Routine 06/06/2022 12:56 Resul ts for this PM CDT procedure are i n the results section. LDA ANE ENDOTRACHEAL Routine 06/06/2022 12:38 Res ults for this AIRWAY PM CDT procedure are i n the results section. GASTROENTEROLOGY IMAGE Routine 06/06/2022 12:10 R esults for this EXAM PM CDT procedure are i n the results section. UPPER GI ENDOSCOPY Routine 06/06/2022 12:06 Resul ts for this PM CDT procedure are i n the results section. EGD Routine 06/06/2022 12:06 (ESOPHAGEALGASTRODUODENO PM CDT SCOPY) CONTINUOUS CYCLING Routine 06/06/2022 11:01 PERITONEAL DIALYSIS AM CDT (CCPD) CBC WITH DIFFERENTIAL, B Routine 06/06/2022 4:23 Results for this AM CDT procedure are i n the results section. RENAL FUNCTION PANEL, S Routine 06/06/2022 4:23 R esults for this AM CDT procedure are i n the results section. PROTHROMBIN TIME (PT), P Routine 06/06/2022 4:23 Results for this AM CDT procedure are i n the results section. ECG STAT 06/05/2022 11:13 Results for this PM CDT procedure are i n the results section. TYPE AND SCREEN STAT 06/05/2022 11:06 Results for this PM CDT procedure are i n the results section. CBC WITHOUT STAT 06/05/2022 11:06 Results for this DIFFERENTIAL, B PM CDT procedure ar e in the results section. OUTSIDE CT BODY Routine 04/13/2022 10:35 Results for this PM CDT procedure are i n the results section. (TTE) 2D ECHO DOPPLER Routine 04/05/2022 3:55 Effusion Res ults for this COLOR PM CDT Pericardial Acute procedure are in ([facility]) the results section. ECG Routine 04/05/2022 2:01 Effusion Results for this PM CDT Pericardial Acute procedure are in ([facility]) the results section. HOLTER MONITOR - IN Routine 04/05/2022 6:00 Effusion Resul ts for this CLINIC BED MANAGER AM CDT Pericardial Acute procedur e are in ([facility]) the results Chronic Systolic section. (Congestive) Heart Failure (HCC) Atrial Fibrillation Paroxysmal (HCC) Bundle Branch Block Left Dialysis Peritoneal Status (HCC) SEDIMENTATION RATE, B Routine 04/04/2022 11:36 Effusion Re sults for this AM CDT Pericardial Acute procedure are in ([facility]) the results Chronic Systolic section. (Congestive) Heart Failure (HCC) Atrial Fibrillation Paroxysmal (HCC) Bundle Branch Block Left Dialysis Peritoneal Status (HCC) CBC WITH DIFFERENTIAL, B Routine 04/04/2022 11:36 Effusion Results for this AM CDT Pericardial Acute procedure are in ([facility]) the results Chronic Systolic section. (Congestive) Heart Failure (HCC) Atrial Fibrillation Paroxysmal (HCC) Bundle Branch Block Left Dialysis Peritoneal Status (HCC) C-REACTIVE PROTEIN Routine 04/04/2022 11:35 Effusion Resul ts for this (CRP), S/P AM CDT Pericardial Acute procedure are in ([facility]) the results Chronic Systolic section. (Congestive) Heart Failure (HCC) Atrial Fibrillation Paroxysmal (HCC) Bundle Branch Block Left Dialysis Peritoneal Status (HCC) NT-PRO B-TYPE Routine 04/04/2022 11:35 Effusion Results fo r this NATRIURETIC PEPTIDE AM CDT Pericardial Acute pro cedure are in (BNP), S (HCC) the results Chronic Systolic section. (Congestive) Heart Failure (HCC) Atrial Fibrillation Paroxysmal (HCC) Bundle Branch Block Left Dialysis Peritoneal Status (HCC) COMPREHENSIVE METABOLIC Routine 04/04/2022 11:35 Effusion Results for this PANEL, S/P AM CDT Pericardial Acute procedure are in (HCC) the results Chronic Systolic section. (Congestive) Heart Failure (HCC) Atrial Fibrillation Paroxysmal (HCC) Bundle Branch Block Left Dialysis Peritoneal Status ([facility]) from Last 3 Months Allergies Active Allergy [...] ater. Medications Medication Sig Dispensed Refills Start End Date Status Date allopurinol Take 100 mg by 0 Act lynsey (ZYLOPRIM) 100 mg mouth every 9 tablet morning. calcitRIOL Take 1 capsule 0 Acti ve (ROCALTROL) 0.25 by mouth 3 9 mcg capsule (three) times a week. Monday, Monday, Monday metoprolol tartrate Take 12.5 mg 0 Active (LOPRESSOR) 25 mg by mouth 2 tablet (two) times a day. multivitamin renal Take 1 tablet 30 tablet 0 Active failure (DIALYVITE) by mouth daily 2 100-1 mg tablet with dinner. torsemide (DEMADEX) Take 1 tablet 0 Active 20 mg tablet (20 mg total) 2 by mouth daily. amoxicillin Take 4 0 Active (AMOXIL) 500 mg capsules by 2 capsule mouth once as needed (Dental procedures). docusate sodium Take 100 mg by 0 Active (COLACE) 100 mg mouth daily. capsule gentamicin APPLY TO EXIT 0 Activ e (GARAMYCIN) 0.1 % SITE DAILY 2 cream pantoprazole Take 40 mg by 0 Act lynsey (PROTONIX) 40 mg EC mouth every 2 tablet morning before breakfast. ondansetron ODT Dissolve 1 20 tablet 0 Act lynsey (ZOFRAN-ODT) 4 mg tablet (4 mg 2 disintegrating total) in the tablet mouth every 6 (six) hours as needed for nausea or vomiting. sucralfate Take 10 mL (1 1200 mL 0 06/07/20 Activ e (CARAFATE) 100 g total) by 2 23 mg/mL suspension mouth every 6 (six) hours. warfarin (COUMADIN) 1 mg on 0 06/06/20 Discontinued 2 mg tablet //Mon and 05 12 (Dis continued by 2 mg on another ///Sat. clinician ) omeprazole Take 1 capsule 0 06/06/20 Disc ontinued (PriLOSEC) [address] (20 mg total) 2 22 capsule by mouth 2 (two) times a day before breakfast and dinner. sucralfate Take 1 tablet 120 tablet 0 06/07/20 Disc ontinued (CARAFATE) 1 gram (1 g total) by 2 22 (Stop Taking at tablet mouth 4 (four) Disch arge) times a day before meals and bedtime. Active Problems Problem Noted Date Hemorrhage Gastrointestinal 06/05/2022 Compliance Lead (Current) Anticoagulant Treatment 12/09/2021 Hypertension And End [...] How often do you attend faith or sabianism More than 4 time s per year [...] Sign Reading Time Taken Comments Blood Pressure 109/53 06/07/2022 8:06 AM CDT Pulse 82 06/07/2022 2:00 PM CDT Temperature 36.4 ??C (97.5 ??F) 06/07/2022 2:00 PM CDT Respiratory Rate 14 06/07/2022 2:00 PM CDT Oxygen Saturation 94% 06/07/2022 2:00 PM CDT Inhaled Oxygen Concentration - - Weight 71.6 kg (157 lb 13.6 oz) 06/06/2022 3:54 PM CDT Height 172 cm (5' 7.72) 06/06/2022 2:50 PM CDT Body Mass Index 24.2 06/06/2022 2:50 PM CDT Results (ABNORMAL) Renal Function Panel (06/07/2022 4:45 AM CDT)Only the most recent of2 resultswithin the time period is included. Analysis Performed At Patho logist Time Signature Potassium, S 3.9 3.6 - 5.2 06/07/2022 DTL mmol/L 5:44 AM CDT Sodium, S 143 135 - 145 06/07/2022 DTL mmol/L 5:44 AM CDT Chloride, S 105 98 - 107 06/07/2022 DTL mmol/L 5:44 AM CDT Bicarbonate, S 31 (H) 22 - 29 06/07/2022 DTL mmol/L 5:44 AM CDT Anion Gap 7 7 - 15 06/07/2022 DTL 5:44 AM CDT BUN (Blood Urea 34 (H) 8 - 24 06/07/2022 DTL Nitrogen), S mg/dL 5:44 AM CDT Creatinine 3.64 (H) 0.74 - 06/07/2022 DTL 1.35 mg/dL 5:44 AM CDT Estimated GFR 16 (L) >=60 06/07/2022 DTL (eGFR) mL/min/BSA 5:44 AM CDT Comment: Estimated GFR calculated using the 2020 CKD_EPI creatinine equation. Calcium, Total, S 8.5 (L) 8.8 - 10.2 mg/dL 06/07/2022 5:44 AM CDT DTL Glucose, S 122 70 - 140 mg/dL 06/07/2022 5:44 AM CDT D TL Albumin, S 2.5 (L) 3.5 - 5.0 g/dL 06/07/2022 5:44 AM CDT D TL Phosphorus (Inorganic), S 2.7 2.5 - 4.5 mg/dL 06/07/20 5:44 AM CDT DTL Specimen Anatomical Collection Method Collection Time Receive d Time (Source) Location / / Volume Laterality Blood (Blood, 06/07/2022 4:45 AM 06/07/20 5:26 Venous) CDT AM CDT Dariel Manzanares M.D. LAB BLOOD ADD-ON Performing Organization Address City/State/ZIP Code Phon e Number [facility] - [address] [place], [place] [address] [facility] [place] [address] Laboratories-[facility] [address] [facility] (ABNORMAL) CBC with Differential, Blood (06/07/2022 4:45 AM CDT)Only the most recent of3 resultswithin the time period is included. [facility] gist Method Time Signature Hemoglobin 10.3 (L) 13.2 - 06/07/2022 DTL 16.6 g/dL 5:20 AM CDT Hematocrit 32.1 (L) 38.3 - 06/07/2022 DTL 48.6 % 5:20 AM CDT Erythrocytes 3.24 (L) 4.35 - 06/07/2022 DTL 5.65 5:20 AM CDT x10(12)/L MCV 99.1 (H) 78.2 - 06/07/2022 DTL 97.9 fL 5:20 AM CDT RBC Distrib Width 14.6 (H) 11.8 - 06/07/2022 DTL 14.5 % 5:20 AM CDT Platelet Count 113 (L) 135 - 317 06/07/2022 DTL x10(9)/L 5:20 AM CDT Leukocytes 5.1 3.4 - 9.6 06/07/2022 DTL x10(9)/L 5:20 AM CDT Neutrophils 3.55 1.56 - 06/07/2022 DTL 6.45 5:20 AM CDT x10(9)/L Lymphocytes 0.66 (L) 0.95 - 06/07/2022 DTL 3.07 5:20 AM CDT x10(9)/L Monocytes 0.40 0.26 - 06/07/2022 DTL 0.81 5:20 AM CDT x10(9)/L Eosinophils 0.47 0.03 - 06/07/2022 DTL 0.48 5:20 AM CDT x10(9)/L Basophils <0.03 0.01 - 06/07/2022 DTL 0.08 5:20 AM CDT x10(9)/L Specimen Anatomical Collection Method Collection Time Receive d Time (Source) Location / / Volume Laterality Blood (Blood, 06/07/2022 4:45 AM 06/07/20 5:13 Venous) CDT AM CDT Dariel Manzanares M.D. LAB BLOOD ADD-ON Performing Organization Address [facility] Phon e Number [facility] [address] (ABNORMAL) Hemoglobin (06/06/2022 4:16 PM CDT) athologist [facility] Hemoglobin 11.7 (L) 13.2 - 16.6 06/06/2022 DTL g/dL 4:44 PM CDT Specimen Anatomical Collection Method Collection Time Receive d Time (Source) Location / / Volume Laterality Blood (Blood, 06/06/2022 4:16 PM 06/06/20 4:38 Venous) CDT PM CDT Dariel Manzanares M.D. LAB BLOOD ADD-ON Performing Organization Address [facility] Phon e Number [facility] [address] Surgical Pathology (06/06/2022 12:56 PM CDT) Component Value Ref Test Analysis Performed Pathologis t Range Method Time At [facility] 06/08/2022 DTL 12:51 PM CDT Participated in Sarina Chavez 06/08/2022 DT the D.O. -Pathology 12:51 PM Interpretation Fellow CDT Report Martin Merino M.D., Ph.D. 06/08/2022 DTL electronically 12:51 PM signed by CDT I verify that I have examined all relevant slides/materials for the specimen(s) and rendered or confirmed the diagnosis. Gross Description Received in formalin labeled with the patient's n surendra, 06/08/2022 DTL medical record number, and esophagus-lower 3rd esophagus 12:51 PM is a 0.3 x 0.2 x 0.1 cm fine-pale fine-pink irregular soft CDT tissue, admixed with tiny tissue fragments that may not survive processing. ?? The specimen is submitted en toto in cassette A1. ??Grossed by L. Addendum GMS stain (A1) shows a few yeast-forms and hyphae, 06/10/2022 DTL morphologically consistent with Mirna species. 11:30 AM CMV and HSV I+II immunostains (A1) are negative. CDT Signed by Martin Merino M.D., Ph.D. 06/10/2022 11:30 AM This test was developed using an analyte specific reagent. Its performance characteristics were determined by [facility] in a manner consistent with CLIA requirements. This test has not been cleared or approved by the U.S. Food and Drug Administration. Comment: REVISED RESULTS Interpretation FINAL DIAGNOSIS 06/10/2022 11:30 AM CDT DTL A. Esophagus, Lower third, endoscopic biopsy: ??Acute esophagitis with ulceration. ??GMS stain and immunostains for CMV and HSV are pending. Specimen (Source) Anatomical Collection Method Collection Time Re ceived Time Location / / Volume Laterality Biopsy 06/06/2022 12:56 (Esophagus) PM CDT Narrative This result has an attachment that is no t available. Katelyn Jones M.D. LAB SURG PATH ORDERABLES Performing Organization Address City/State/ZIP Code Phon e Number [facility] - [address] [place], [place] [address] [facility] [place] [address] Laboratories-[facility] [address] LDA ANE ENDOTRACHEAL AIRWAY (06/06/2022 12:38 PM CDT) Narrative José Luis Jauregui APRN, GUN PERFORATOR - 06/06/2022 1 2:38 PM CDT José Luis Jauregui APRN, GUN PERFORATOR ? 06/06/2022 12:38 PM Airway Date/Time: 06/06/2022 12:38 PM Performed by: José Luis Jauregui APRN, CRNA Authorized by: José Luis Jauregui APRN, CRNA Patient location during procedure: OR / Procedure Area PROCEDURE DETAILS: Mask difficulty assessment: easy mask Final airway type: video laryngoscope Laryngeal Manipulation: no ?? Final best view of glottic structures - Cormack/Lehane Score: grade 1 ETT location: oral VL device: glide scope [place] scope blade size: 4 Adult tube size: 7 Adult ETT distance at teeth/gum: 22 Oral tube type: standard ETT Cuffed: yes Number of attempt to successful placemen t: 1 Airway confirmation: bilateral breath so unds, positive ETCO2 and bilateral chest rise Other previous techniques attempted: non e PRE PROCEDURE DETAILS: Pre evaluation for airway management: pr ocedure Urgency: elective Preop assessment of probable difficulty: no difficulty anticipated Preoxygenation: bag valve mask SEDATION / ANESTHESIA Anesthesia method: anesthesia POST PROCEDURE DETAILS: ? Procedure outcome: successful ?? Airway event: no complications José Luis Jauregui APRN, CRNA ANESTHESIA ORDERABLES Upper GI endoscopy-Gastroenterology Image Exam (06/06/2022 12:10 PM CDT) Specimen (Source) Anatomical Collection Method Collection Time Re ceived Time Location / / Volume Laterality 06/06/2022 12:06 PM CDT Narrative [facility] - 06/06/2022 1:15 PM CDT This order has been created and auto-finalized to support the import of images acquired without order. The clini mathew documentation to support these images can be found on the encounter duglas t produced images. Provider Not In System IMG NON RAD IMAGING PROCEDUR ES Performing Organization Address City/State/ZIP Code Phon e Number IIUT IIUT NA Upper GI Endoscopy (06/06/2022 12:06 PM CDT) Specimen (Source) Anatomical Collection Method Collection Time Re ceived Time Location / / Volume Laterality 06/06/2022 12:06 PM CDT Impressions [place] [employer] - 06/06/2022 1:11 PM CDT Post-op Diagnoses: ? - The patient is status-post surg ical myotomy (x20 without partial ? fundoplication. ? - Features of achalasia including aperistalsis and dilated esophagus. No ? significant resistance traversing the lower esophageal sphincter. ? - Severe chronic esophagitis with bleeding. Findings can secondary to ? stasis and/or gastroesophageal re flux. Biopsied. ? - An endoclip was found in the es ophagus from previous endoscopy. ? - Coffee-ground liquid in the gas tric body. ? - Normal stomach. ? - Normal examined duodenum. Narrative [employer] [employer] - 06/06/2022 1:11 PM CDT Saul 6 GI GI Patient Name: David Castro Date of : 1940 Age: 81 Gender: Male Procedure Date: 06/06/2022 Procedure: ? Upper GI endoscopy Providers: ? Katelyn trammell MD, Ace Graham MD (Fellow) Referring Provider: ?Lorrie bose Pre-op Diagnoses: ?Hematemesis Recommendation: ? - Use a proton pump inhibitor PO BID. ? - Use sucralfate tablets 1 gram d issolved in 50 cc of water PO QID. ? - Referral to Esophageal Clinic w ith pre-scheduled esophageal manometry, ? upper endoscopy with Endoflip, es ophagram with barium tablet, ambulatory ? pH impedance Findings: ? Patient underwent surgical myotom y in 1968 and re-do myotomy without ? partial fundoplication on November 192020. ? No appreciable esophageal motilit y was noted. The esophageal lumen ? appeared dilated. In addition, a patulous lower esophageal sphincter was ? found. There was no resistance to endoscope advancement into the ? stomach. The gastroesophageal marielle ction and cardia were normal on ? retroflexed view. No food or liqu id retention was observed in the ? esophagus. Fluid instilled into t he esophagus appeared to clear into the ? stomach. ? Severe esophagitis with contact f riability and self-limited oozing was ? found in the middle to lower thir d of the esophagus. Unclear if ? esophagitis is from stasis or gas troesophageal reflux. Biopsies were ? taken with a cold forceps for his tology. Verification of patient ? identification for the specimen w as done. Estimated blood loss was ? minimal. ? An endoclip was found in the midd le third of the esophagus, 38 cm from ? the incisors. ? Coffee-ground liquid was found in the gastric body. ? The stomach was normal. Mucosa ap peared diffusely nodular. ? The examined duodenum was normal. Renu gland hyperplasia observed in ? the duodenal bulb. Procedural Details: ? The patient was seen, [...] well. Estimated Blood Loss: ?Estimated blo od loss was minimal. Complications: ? No immedia te complications. Sedation: ? Anesthesia was administered by an anesthesia professional. The following ? parameters were monitored: oxygen saturation, heart rate, blood ? pressure, respiratory rate, EKG, adequacy of pulmonary ventilation, and ? response to care. Attending Participation: I was present a nd participated during the entire ? pro cedure, including non-coughlin portions. Katelyn Jones MD 06/06/2022 1:11:22 PM This report has been signed electronical ly. Number of Addenda: 0 Lorrie Bo M.D. GI PROCEDURE ORDERABLES Performing Organization Address City/State/ZIP Code Phon e Number [employer] [facility] [employer] NA Prothrombin Time (PT) (06/06/2022 4:23 AM CDT) P athologist Signature Prothrombin 11.8 9.4 - 12.5 06/06/2022 DTL Time, P sec 5:19 AM CDT INR 1.1 0.9 - 1.1 06/06/2022 DTL 5:19 AM CDT Comment: ----ADDITIONAL INFORMATION---- Standard intensity warfarin therapeutic range: 2.0 to 3.0 ?? High intensity warfarin therapeutic rang e: 2.5 to 3.5 Specimen Anatomical Collection Method Collection Time Receive d Time (Source) Location / / Volume Laterality Blood (Blood, 06/06/2022 4:23 AM 06/06/20 4:53 Venous) CDT AM CDT Lorrie Bo M.D. LAB BLOOD ADD-ON Performing Organization Address City/State/ZIP Code Phon e Number [facility] - [address] [place], [place] [address] [facility] [place] [address] Laboratories-[address] ECG 12 Lead (06/05/2022 11:13 PM CDT)Only the most recent of2 resultswithin the time period is included. P athologist Signature Ventricular Rate 89 BPM MUSE ECG/Min CO Interval 160 ms MUSE QRSD Interval 128 ms MUSE QT Interval 384 ms MUSE QTC Interval 467 ms MUSE P [place] 70 degrees MUSE R [place] 30 degrees MUSE T Wave [place] 54 degrees MUSE Specimen Anatomical Collection Method Collection Time Receive d Time (Source) Location / / Volume Laterality 06/05/2022 11:13 06/06/2022 8:35 PM CDT AM CDT Impressions MUSE - 06/05/2022 11:18 PM CDT Sinus rhythm Premature atrial complexes Non-specific intra-ventricular conductio n delay with secondary ST-T abnormalities When compared with ECG of 05-APR-2022 14 :01, Rate has increased by 27 BPM Premature atrial complexes are now prese nt Revised Report Narrative This result has an attachment that is no t available. Procedure Note Paul Bennett Jr., M.D. - 06/06/2022For matting of this note might be different from the original. IMPRESSION: Sinus rhythm Premature atrial complexes Non-specific intra-ventricular conductio n delay with secondary ST-T abnormalities When compared with ECG of 05-APR-2022 14 :, Rate has increased by 27 BPM Premature atrial complexes are now prese nt Revised Report Orlin Deshpande M.D. ECG ORDERABLES Performing Organization Address City/State/ZIP Code Phon e Number MUSE MUSE NA (ABNORMAL) CBC without Differential (06/05/2022 11:06 PM CDT) [facility] Method Time Signature Hemoglobin 12.7 (L) 13.2 - 06/05/2022 STMA 16.6 g/dL 11:14 PM CDT Hematocrit 39.1 38.3 - 06/05/2022 STMA 48.6 % 11:14 PM CDT Erythrocytes 3.99 (L) 4.35 - 06/05/2022 STMA 5.65 11:14 PM CDT x10(12)/L MCV 98.0 (H) 78.2 - 06/05/2022 STMA 97.9 fL 11:14 PM CDT RBC Distrib Width 14.4 11.8 - 06/05/2022 STMA 14.5 % 11:14 PM CDT Platelet Count 143 135 - 317 06/05/2022 STMA x10(9)/L 11:14 PM CDT Leukocytes 9.0 3.4 - 9.6 06/05/2022 STMA x10(9)/L 11:14 PM CDT Specimen Anatomical Collection Method Collection Time Receive d Time (Source) Location / / Volume Laterality Blood (Blood, 06/05/2022 11:06 06/05/2022 Venous) PM CDT 11:12 PM CDT Orlin Deshpande M.D. LAB BLOOD ADD-ON Performing Organization Address City/State/ZIP Code Phon e Number [facility] - [address] [place], [place] [address] [facility] [place] [place] [address] [facility] [address] [facility] Type and Screen (with reflex Antibody ID) (06/05/2022 11:06 PM CDT) [facility] Method Time Signature ABORh O Pos Not 06/05/2022 STRM applicable 11:34 PM CDT Antibody Negative Negative 06/05/2022 STR Screen 11:47 PM CDT Type & Screen 06/08/2022 06/05/2022 STRM Expiration 23:59 11:34 PM CDT Testing [place] DEFAULT 06/05/2022 STRM Location 11:15 PM CDT Specimen Anatomical Collection Method Collection Time Receive d Time (Source) Location / / Volume Laterality Blood (Blood, 06/05/2022 11:06 06/05/2022 Venous) PM CDT 11:15 PM CDT Orlin Deshpande M.D. LAB BLOOD BANK TEST ORDERABL ES Performing Organization Address City/State/ZIP Code Phon e Number [place] [address] [place], [place] [address] [place] [address] [place] [address] ABDOMEN PELVIS WO CON-Outside CT Body [...] ECHO DOPPLER COLOR (04/05/2022 3:55 PM CDT) [facility] Method Time Signature Ejection Fraction 66 [...] was performed but not reported based on seismic interpreter's judgment. No regional wall motion abnormalities. [...] For the complete report, see the Order-L evRSVP Law Documents. Narrative 04/07/2022 11:43 AM CDT For [...] For the complete report, see the Order-L TournEase Documents. Final Impressions 1. Normal left ventricular [...] Documents. Jessa Heredia M.D. CV ECHO PROCEDURES HOLTER MONITOR - IN CLINIC BED MANAGER (04/05/2022 6:00 AM CDT) P athologist [...] Duration 6h 30m duration INFOBIONIC MOME AF [place] 29 percent INFOBIONIC MOME Longest AF 7h [...] seen singly at and around these times. Refrigeration Supervisor: Marilou Zimmer / Violet Cotton Fellow: Clemente [...] seen singly at and around these times. Refrigeration Supervisor: Marilou Zimmer / Violet Cotton Fellow: Clemente Dos Santos MD Mehrdad Lazcano APRN, C.N.P. CV CARDIAC SERVICES PRO CEDURES Performing Organization Address City/State/ZIP Code Phon e Number INFOBIONIC MOME INFOBIONIC MOME NA (ABNORMAL) Sedimentation Rate (04/04/2022 11:36 AM CDT) [facility] gist Method Time Signature Sedimentation 61 (H) 3 - 28 04/04/2022 DTL Rate, B mm/h 12:50 PM CDT Specimen Anatomical Collection Method Collection Time Receive d Time (Source) Location / / Volume Laterality Blood (Blood, 04/04/2022 11:36 04/04/2022 Venous) AM CDT 11:56 AM CDT Mehrdad Lazcano APRN, C.N.P. LAB BLOOD ADD-ON Performing Organization Address City/State/ZIP Code Phon e Number [facility] - [address] [place], [place] [address] [facility] [place] [address] Laboratories-[facility] [address] (ABNORMAL) NT-Pro B-Type Natriuretic Peptide (BNP) (04/04/2022 11:35 AM CDT) athologist [facility] NT-Pro BNP 2314 (H) <=540 pg/mL 04/04/2022 [...] C.N.P. LAB BLOOD ADD-ON Performing Organization Address [facility] Code Phon e Number [facility] - [address] [place] [address] (ABNORMAL) CRP (C-Reactive Protein) (04/04/2022 11:35 AM CDT) [facility] [place] C-Reactive 16.2 (H) <=8.0 mg/L 04/04/2022 DT Protein (CRP), 1:55 PM CDT S Specimen Anatomical Collection Method Collection Time Receive d Time (Source) Location / / Volume Laterality Blood (Blood, 04/04/2022 11:35 04/04/2022 Venous) AM CDT 12:06 PM CDT Mehrdad Lazcano APRN, C.N.P. LAB BLOOD ADD-ON Performing Organization Address [facility] Phon e Number [facility] - [address] (ABNORMAL) Comprehensive Metabolic Panel (04/04/2022 11:35 AM CDT) Analysis Performed At Patho logist [place] Signature Potassium, S 3.9 3.6 - 5.2 [...] 04/04/2022 DTL Black/ mL/min/BSA 1:48 PM CDT [place] Islander Comment: ----ADDITIONAL INFORMATION---- Estimated GFR calculated [...] City/State/ZIP Code Phon e Number [facility] - [address] [place], [place] [address] [facility] [place] [address] Laboratories-[facility] [address] from Last 3 Months
--- OUTSIDE RECORDS SUMMARY | 2022-06-14 06:19 | XMS_ITS | Clinical Summary ---
:1940 Author Organization [facility] Address [address] [place] [address] Care Team Providers Name Role Phone Elsewhere, Pcp Primary Care Provider Unavailable Source Comments Patient records contain information from all sites at [facility]. For routine questions regarding patient records, call [phone] during business hours, M-F 8:00 AM - 5:00 PM Central Time. 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 06/07/2022 Orders Only Gastroenterology and Libra, Hepatology Maurice Mendes M.D., Ph.D. 06/07/2022 Clinical Gastroenterology and Libra, Communication Hepatology Maurice Mendes M.D., Ph.D. 06/07/2022 Clinical Gastroenterology and Libra, Communication Hepatology Maurice Mendes M.D., Ph.D. 06/07/2022 Clinical Gastroenterology and Libra, Communication Hepatology Maurice Mendes M.D., Ph.D. 06/06/2022 Anesthesia Event Gastroenterology and José Luis Jauregui, Hepatology INFORMATION ASSISTANT, METAL SPRAYER PROTECTIVE COATING Jacob Ennis APRN, ZACH 06/06/2022 Ancillary Procedure 06/06/2022 Clinical Gastroenterology and [place], Communication Hepatology Maurice Mendes M.D., Ph.D. 06/05/2022 Hospital Encounter Ari Botello, Holli Zaidi M.D. Gastrointestinal 06/07/2022 Shabnam (Primary Dx) Trinh Solorio 04/15/2022 Virtual Visit Cardiovascular Heredia, Stenosis Aor tic Valve Acquired (Primary Dx); Disease Jessa Mendes, Effusion Perica rdial Acute (HCC) Alyssa Melton M.D. 04/12/2022 Clinical Admitting/Central Pre-visit Intake Communication Scheduling 04/05/2022 Hospital Encounter Cardiovascular Yan Stanpierre n Pericardial Disease Jessa Mendes, Acute (HCC) Trinh 04/04/2022 Hospital Encounter Cardiovascular Tigist Lazcano n Pericardial Acute (HCC); Disease Liselle M, Chronic Systoli c (Congestive) Heart Failure (HCC); INFORMATION ASSISTANT, C.N.P. Atrial Fibrilla tion Paroxysmal (HCC); Bundle Branch B lock Left; Dialysis Perito ibis Status (HCC) 04/04/2022 Hospital Encounter Laboratory Medicine Neno, Ef fusion Pericardial Acute (HCC); Liselle M, Chronic Systoli c (Congestive) Heart Failure (HCC); INFORMATION ASSISTANT, C.N.P. Atrial Fibrilla tion Paroxysmal (HCC); Bundle Branch B lock Left; Dialysis Perito ibis Status (HCC) from Last 3 Months Immunizations Name Administration [...] How often do you attend hindu or christianity More than 4 time s [...] Mass Index 24.2 06/06/2022 2:50 PM CDT Plan of Treatment Upcoming Encounters Date Type Specialty Care Team Description 06/16/2022 Clinical Support Nutrition Ankita Smyth M.D., Ph.D. [address] [place] [address] Ace Morris, RDN, LD [address] [place] [phone] 06/20/2022 Comprehensive Visit Gastroenterology and Libra Hepatology Maurice Mendes M.D., Ph.D. [address] [place] [phone] 06/22/2022 Appointment Radiology Maurice Smyth M.D., Ph.D. [address] [place] [phone] 07/12/2022 Clinical Communication Admitting/Central Scheduling 08/31/2022 Appointment Gastroenterology and [place] Hepatology Maurice Mendes M.D., Ph.D. [address] [place] [phone] 09/01/2022 Appointment Gastroenterology and [place] Hepatology Maurice Mendes M.D., Ph.D. [address] [place] [phone] 09/05/2022 Appointment Gastroenterology and Libra Hepatology Maurice Mendes M.D., Ph.D. [address] [place] [phone] Health Maintenance Due Date Last Done Comments COVID-19 Vaccine (4 - Booster for 07/13/2021 05/18/2021, , Pfizer series) 09/23/2020 Depression Screening (Annual 08/21/2021 PHQ-2) Office Visit for Blood Pressure 04/14/2023 04/14/2022 Check / Re-check Creatinine Level 06/07/2023 06/07/2022, 06/06/2022, 04/04/2022, Additional history exists Potassium Level 06/07/2023 06/07/2022, 06/06/2022, 04/04/2022, Additional history exists Sodium Level 06/07/2023 06/07/2022, 06/06/2022, 04/04/2022, Additional history exists DTaP,Tdap,and Td Vaccines (2 - Td 07/10/2024 07/10/2014, or Tdap) Pneumococcal vaccine (65+ years) Completed 11/04/2014, Zoster Vaccines Completed 02/14/2019, 12/11/2018, 04/08/2010 Influenza Vaccine Completed 05/19/2022, 05/18/2021, 05/06/2020, Additional history exists Fall Risk Screen (Annual) Completed 06/06/2022 Medical Devices Implanted Type Area Gang Tailer Device Shelf Model / Identifier Expiration Date Ser ial / Lot [employer]omed-Screw Auto-Drive 1.6 X 4 - [id number] [id number] Hardware e.[employer] Implanted: Qty: 16 on 06/19/2002 pins/screws/r ods Description: Device Gang Tailer - Spotlight At Night. Device Status Text - [id number]. Procedures Procedure Name Priority Date/Time Associated Comments [...] PM CDT Pericardial Acute procedure are in ([facility]) the results section. ECG Routine 04/05/2022 2:01 Effusion Results for this PM CDT Pericardial Acute procedure are in ([facility]) the results section. HOLTER MONITOR - IN Routine 04/05/2022 6:00 Effusion Resul ts for this CLINIC EQUAL OPPORTUNITY DIRECTOR AM CDT Pericardial Acute procedur e are in ([facility]) the results Chronic Systolic section. (Congestive) Heart Failure (HCC) Atrial Fibrillation Paroxysmal (HCC) Bundle Branch Block Left Dialysis Peritoneal Status ([facility]) SEDIMENTATION RATE, B Routine 04/04/2022 11:36 Effusion Re sults for this AM CDT Pericardial Acute procedure are in ([facility]) the results Chronic Systolic section. (Congestive) Heart Failure (HCC) Atrial Fibrillation Paroxysmal (HCC) Bundle Branch Block Left Dialysis Peritoneal Status (HCC) CBC WITH DIFFERENTIAL, B Routine 04/04/2022 11:36 Effusion Results for this AM CDT Pericardial Acute procedure are in ([facility]) the results Chronic Systolic section. (Congestive) Heart Failure (HCC) Atrial Fibrillation Paroxysmal (HCC) Bundle Branch Block Left Dialysis Peritoneal Status (HCC) C-REACTIVE PROTEIN Routine 04/04/2022 11:35 Effusion Resul ts for this (CRP), S/P AM CDT Pericardial Acute procedure are in ([facility]) the results Chronic Systolic section. (Congestive) Heart Failure (HCC) Atrial Fibrillation Paroxysmal (HCC) Bundle Branch Block Left Dialysis Peritoneal Status ([facility]) NT-PRO B-TYPE Routine 04/04/2022 11:35 Effusion Results [...] Branch Block Left Dialysis Peritoneal Status (HCC) from Last 3 Months Results (ABNORMAL) Renal Function Panel (06/07/2022 4:45 [...] Organization Address City/State/ZIP Code Phon e Number [facility] - [address] [place], [place] [address] [facility] [place] [address] [facility] [address] [facility] (ABNORMAL) CBC with Differential, Blood (06/07/2022 4:45 AM CDT)Only the most recent of3 resultswithin the time period is included. [facility] gist Method Time Signature Hemoglobin 10.3 [...] M.D. LAB BLOOD ADD-ON Performing Organization Address [facility] Phon e Number [facility] - [address] (ABNORMAL) Hemoglobin (06/06/2022 4:16 PM CDT) athologist [facility] Hemoglobin 11.7 (L) 13.2 - 16.6 06/06/2022 DTL g/dL 4:44 PM CDT Specimen Anatomical Collection Method Collection Time Receive d Time (Source) Location / / Volume Laterality Blood (Blood, 06/06/2022 4:16 PM 06/06/20 4:38 Venous) CDT PM CDT Dariel Manzanares M.D. LAB BLOOD ADD-ON Performing Organization Address [facility] Phon e Number [facility] - [address] Surgical Pathology (06/06/2022 12:56 PM CDT) Component Value Ref Test Analysis Performed Pathologis t Range Method Time At Signature 06/08/2022 DTL 12:51 PM CDT Participated in [...] reagent. Its performance characteristics were determined by [facility] in a manner consistent with CLIA requirements. [...] Organization Address City/State/ZIP Code Phon e Number [facility] - [address] [place], [place] [address] [facility] [place] [address] [facility] [address] LDA ANE ENDOTRACHEAL AIRWAY (06/06/2022 12:38 PM CDT) Narrative José Luis Jauregui APRN, CRNA - 06/06/2022 1 2:38 PM CDT José Luis Jauregui APRN, CRNA ? 06/06/2022 12:38 PM Airway Date/Time: 06/06/2022 [...] ETT location: oral VL device: glide scope Gardiner scope blade size: 4 Adult tube size: [...] Organization Address City/State/ZIP Code Phon e Number IIWV IIWV NA Upper GI Endoscopy (06/06/2022 12:06 PM [...] stomach. ? - Normal examined duodenum. Narrative [employer] - 06/06/2022 1:11 PM CDT Saul [...] ? - Referral to Esophageal Clinic w [facility] pre-scheduled esophageal manometry, ? upper endoscopy with [...] electronical ly. Number of Addenda: 0 Lorrie B Bo M.D. GI PROCEDURE ORDERABLES Performing Organization Address City/State/ZIP Code Phon e Number [facility] Prothrombin Time (PT) (06/06/2022 [...] Organization Address City/State/ZIP Code Phon e Number [facility] - [address] [place], [place] [address] [facility] [place] [address] [facility] 200 [facility] ECG 12 Lead (06/05/2022 11:13 PM CDT)Only the most recent of2 resultswithin the time period is included. P athologist Signature Ventricular Rate 89 BPM MUSE ECG/Min ID Interval 160 ms MUSE QRSD Interval 128 ms MUSE QT Interval 384 ms MUSE QTC Interval 467 ms MUSE P [place] 70 degrees MUSE R [place] 30 degrees MUSE T Wave [place] 54 degrees MUSE Specimen Anatomical Collection Method [...] CBC without Differential (06/05/2022 11:06 PM CDT) [facility] MOOVIA Method Time Signature Hemoglobin 12.7 (L) 13.2 [...] Organization Address City/State/ZIP Code Phon e Number [facility] - [address] [place], [place] [address] [facility] [place] [address] [facility] [address] Type and Screen (with reflex Antibody ID) (06/05/2022 11:06 PM CDT) [facility] [place] Method Time Signature ABORh O Pos Not 06/05/2022 STRM applicable 11:34 PM CDT Antibody Negative Negative 06/05/2022 STRM Screen 11:47 PM CDT Type & Screen 06/08/2022 06/05/2022 STRM Expiration 23:59 11:34 PM CDT Testing Ken DEFAULT 06/05/2022 STRM Location 11:15 PM CDT Specimen Anatomical Collection Method Collection Time Receive d Time (Source) Location / / Volume Laterality Blood (Blood, 06/05/2022 11:06 06/05/2022 Venous) PM CDT 11:15 PM CDT Orlin Deshpande M.D. LAB BLOOD BANK TEST ORDERABL ES Performing Organization Address City/[facility]/ZIP Code Phon e Number [facility] - [address] [place], [place] [address] [place] [address] [facility] [address] ABDOMEN PELVIS WO CON-Outside [...] System IMG CT PROCEDURES Performing Organization Address City/[facility]/ZIP Code Phon e Number IIMS IIMS NA (TTE) 2D ECHO DOPPLER COLOR (04/05/2022 3:55 PM CDT) [facility] [place] Method Time Signature Ejection Fraction 66 MC [...] For the complete report, see the Order-L RingCaptcha Documents. Narrative 04/07/2022 11:43 AM CDT For [...] For the complete report, see the Order-L RingCaptcha Documents. Final Impressions 1. Normal left ventricular [...] ECHO PROCEDURES HOLTER MONITOR - IN CLINIC EQUAL OPPORTUNITY DIRECTOR (04/05/2022 6:00 AM CDT) P athologist Signature [...] Duration 6h 30m duration INFOBIONIC MOME AF [place] 29 percent INFOBIONIC MOME Longest AF 7h [...] seen singly at and around these times. Milking Machine Operator: Marilou Zimmer / Violet Cotton [...] seen singly at and around these times. Milking Machine Operator: Marilou Zimmer / Violet Cotton Fellow: Clemente Dos Santos MD Mehrdad Lazcano APRN, C.N.P. CV CARDIAC SERVICES PRO CEDURES Performing Organization Address City/State/ZIP Code Phon e Number INFOBIONIC MOME INFOBIONIC MOME NA (ABNORMAL) Sedimentation Rate (04/04/2022 11:36 AM CDT) Patholo gist Method Time Signature Sedimentation 61 (H) 3 - 28 04/04/2022 DTL Rate, B mm/h 12:50 PM CDT Specimen Anatomical Collection Method Collection Time Receive d Time (Source) Location / / Volume Laterality Blood (Blood, 04/04/2022 11:36 04/04/2022 Venous) AM CDT 11:56 AM CDT Mehrdad Lazcano APRN, C.N.P. LAB BLOOD ADD-ON Performing Organization Address City/State/ZIP Code Phon e Number [facility] - [address] [place], [place] [address] [facility] [place] [address] [facility] [address] (ABNORMAL) NT-Pro B-Type Natriuretic [...] C.N.P. LAB BLOOD ADD-ON Performing Organization Address [facility] Phon e Number [address] (ABNORMAL) CRP (C-Reactive Protein) (04/04/2022 11:35 AM CDT) P athologist Signature C-Reactive 16.2 (H) <=8.0 mg/L 04/04/2022 DTL Protein (CRP), 1:55 PM CDT S Specimen Anatomical Collection Method Collection Time Receive d Time (Source) Location / / Volume Laterality Blood (Blood, 04/04/2022 11:35 04/04/2022 Venous) AM CDT 12:06 PM CDT Mehrdad Lazcano APRN, C.N.P. LAB BLOOD ADD-ON Performing Organization Address City/[facility] Phon e Number [address] (ABNORMAL) Comprehensive Metabolic Panel (04/04/2022 11:35 [...] 04/04/2022 DTL Black/ mL/min/BSA 1:48 PM CDT [place] Comment: ----ADDITIONAL INFORMATION---- Estimated GFR calculated using [...] 04/04/2022 Venous) AM CDT 12:04 PM CDT Natalie Bal APRNNDenisse LAB BLOOD ADD-ON Performing Organization Address City/State/ZIP Code Phon e Number [facility] - [address] [place], [place] [address] [facility] [place] [address] [facility] [address] from Last 3 Months Insurance Payer Benefit Plan Subscriber ID Effective Phone Address Typ e / Group Dates [facility] MED[facility] [id number] 2018-Pres [phone] PPO COMPLETE ent [phone] [place] [address] FOR LIFE FOR [id number] 2018-Pre [phone] Indemnity LIFE sent [phone] [place] [address] Advance Directives For more information, please contact: [phone] Latest Code Status on File Code Status Date Activated Date Inactivated Comments Full Code 06/06/2022 1:12 AM 06/07/2022 5:32 PM Question Answer Comments Full Code: Discussed Code Status History Code Status Date Activated Date Inactivated Comments Full Code 12/09/2021 5:10 PM 12/11/2021 2:46 PM Question Answer Comments Full Code: Discussed Full Code 2021 1:00 AM 12/08/2021 4:13 PM Question Answer Comments Full Code: Discussed Care Teams Research Agricultural Engineer Relationship Specialty Start Date End Date Elsewhere, Pcp PCP - General Internal Medicine 06/05/22
--- OUTSIDE RECORDS SUMMARY | 2022-06-14 06:19 | XMS_ITS ---
:1940 Author Organization [facility], NA DOCUMENT DISCLAIMER The information in the [facility] Continuity of Care Document represents a summary [...] allopurinol Take by mouth 1 tablet ORAL September 15, Active 100 mg once a day 2021 amoxicillin Take by mouth 4 capsule ORAL September 15, Active 500 mg once a day as 2021 directed calcitriol Take by mouth 1 capsule ORAL June 13, Active 0.25 mcg three times a 2021 week Carafate 1 Take by mouth 1 tablet ORAL June 08, Active gram four times a 2021 day as directed Dialyvite by mouth once 1 tablet ORAL December 13, Ac tive 100-1 mg a day 2021 docusate Take by mouth 1 tablet ORAL March 23, Ac tive sodium 100 mg twice a day as 2021 needed gentamicin Apply to skin TOPICAL December 13, A ctive 0.1% once a day as 2021 directed metoprolol Take by mouth 08/22 ORAL April ctive tartrate 25 mg twice a day 2021 ondansetron 4 Take by mouth 1 tablet ORAL June 08, Active mg every six hours 2021 as needed Protonix 40 Take by mouth 1 tablet ORAL June 01, Active mg once a day 2021 torsemide 20 Take by mouth 1 tablet ORAL December 22, Active mg once a day 2021 amoxicillin-p Take by mouth 1 tablet ORAL May ot clavulanate once a day 2021 500-125 mg warfarin 2 mg Take by mouth ORAL May Discontinued once a day as 2021 directed VITAL SIGNS Post-Treatment Vital Signs Vital Sign Value Date / Time Blood Pressure-sitting 110/103 mmHg June 14, 2022 12:00 AM Heart Rate 60 beats per minute June 14, 2022 12: 00 AM Temperature 97.6 deg. F June 14, 2022 12: 00 AM Weight Vital Sign Value Date / Time Estimated Dry Weight 72.5 kg June 01, 2022 11 :59 PM Post-Dialysis 71.02 kg June 14, 2022 12: 00 AM Other Other Value Date / Time Height 172 cm September 14, 2021 12: 00 AM HEALTH CONCERNS Tuberculosis Testing TST Date Administered TST Date Read TST Result 09/14/2021 09/16/2021 Negative (<5) mm LAB RESULTS Hematology Result Type Result Value Relevant Reference Interpretation Date Range UIBC (Calc) 154 mcg/dL 155-355 mcg/dL Low June 01 MCH 31.5 pg 27 - 31 pg/cell High June 01, 2022 TIBC 211 mcg/dL 185-515 mcg/dL - October 12, 2 022 Transferrin Sat. 27 % 20-55% - June 01, 2022 (Calc) HCT 37.1 % Males: 42 - 52% Low June 01, 2022 Females: 37 - 47% Ferritin 111 ng/mL Males: 22 - 322 - June 01, 2022 ng/mL; Females: 10 - 291 ng/mL Hemoglobin x 3 35.1 % Male: 14.0 - 18.0 Low June 01, 2022 g/dL; Female: 12.0-16.0 g/dL RDW 14.9 % No Reference range High May 212021 provided Iron 57 mcg/dL Females: 30-160 - June 01, 2022 mcg/dL Males: 45-160 mcg/dL MCHC 31.6 g/dL 30 - 36 g/dL - June 01 2 HGB 11.7 g/dL Males: 14.0 - 18.0 Low May 212021 g/dL Females: 12.0 - 16.0 g/dL RBC 3.72 mill/mcL Males: 4.70 - 6.10 Low June 01, 2022 mill/mcL Females: 4.20 - 5.40 mill/mcL WBC (No Diff) 4.82 1000/mcL 4.8-10.8 thous/mcL - June 01, 2022 JUAN ANTONIO 1.8 % 0.0-4.0% - June 01 2 Neutrophils 69.5 % 40.0-75.0% - June 01 2 Basophils 0.2 % 0.0-1.5% - June 01 2 Eosinophil 8.1 % 0.0-7.0% High June 01 2 Monocytes 7.1 % 3.0-10.0% - June 01 2 Lymphocytes 13.4 % 19.0-48.0% Low June 01 2 Metabolic/Renal Result Type Result Value Relevant Reference Interpretation Date Range BUN 28 mg/dL 6-19 mg/dl High June 01 2 Chloride 104 mEq/L 96-108 mEq/L - June 01 2 Bicarbonate 31 mEq/L 22-29 mEq/L - June 01 2 Creatinine, Serum 3.65 mg/dL 0.6-1.3 mg/dL High May 212021 BUN/Creat Ratio 7.7 10-20 Low June 01, 2022 Sodium 141 mEq/L 136-145 mEq/L - June 01 Potassium 4.0 mEq/L 3.5-5.1 mEq/L - June 01 Bone/Mineral Result Type Result Value Relevant Reference Interpretation Date Range Corrected Ca x P 29 < 55 - June 01, 2022 Product Magnesium 1.6 mg/dL 1.6-2.6 mg/dL - June 01 Calcium, Total 8.8 mg/dL 8.4-10.2 mg/dL - June 01, 2022 Phosphorus 3.1 mg/dL 2.6-4.5 mg/dL - June 01 PTH-Intact, Plasma 147 pg/mL 16 to 80 pg/mL High June 01, 2022 Ca x P Product 27 < 55 - June 01 Alkaline Phosphatase 194 U/L Males: 40-129 U/L, High O ct2021 > 15 yrs Females: 35 - 104 U/L, > 15 yrs Liver/Nutrition Result Type Result Value Relevant Reference Interpretation Date Range Albumin (BCG) 3.2 g/dL 3.5-5.2 g/dL Low June 01 Infectious Diseases Result Type Result Value Relevant Reference Interpretation Date Range Hep B Surface Ab > 1000 mIU/mL < 10 mIU/mL, Non- - Janua 2021 (anti-HBs) Immune HCV Ab (anti-HCV) Nonreactive Non-Reactive - August Hep B core Ab Negative Negative - September 13 Total (anti-HBc) Hep B Surface Ag Negative Negative - December 01 (HBsAg) DIALYSIS PRESCRIPTION CCPD Data Element Value Order Date/Time June 01, 2022 Frequency 7X [facility] [place] Estimated Dry Weight 72.5 kg Calcium Content in Bag (mEq/L) 2.5 mEq/L Magnesium Content in Bag (mEq/L) 0.5 mEq/L Dextrose Content in Bag % 1.5; 2.5; [...] Dialysis Access Meds-ent ered by Solution patient June 14 of 1 - Dextrose 1.5% Peritoneal Leigh lysis-PD Catheter-Double Cuff Coiled, Right Upper Quadrant of Abdomen - 2021 Access Placed on [facility] r 2020 Vitals Time Weight BP Heart Rate Temperature Blood Sugar June 14, 2022 71.02 kg 110/103 mmHg 60 beats per 97.6 deg. F - (AM) minute CCPD-PatientHub Date Exchanges Fill Volume Exchange Dialysis Access Meds-ent ered by Solution patient June 13 of 1 - Dextrose 1.5% Peritoneal Leigh lysis-PD Catheter-Double Cuff Coiled, Right Upper Quadrant of Abdomen - 2021 Access Placed on [facility] r 2020 Vitals Time Weight BP Heart Rate Temperature Blood Sugar June 13, 2022 70.93 kg 109/83 mmHg 60 beats per 97.8 deg. F - (AM) minute CCPD-Cycler Date Treatment Total Total Exchange Total Dialysis Meds-entered by Vitals Cycles Fill Solution Exchange Access patient Volume Solution June 12, 2022 - - 4 5936.0 mL Dextrose 1.5% - Peritoneal Dialysis-PD Catheter-Double Cuff Coiled, Right Upper Quadrant of Abdomen - Access Placed o n August 16, 2021 Dextrose 2.5% - Dextrose 4.25% -
--- OUTSIDE RECORDS SUMMARY | 2022-06-14 06:19 | XMS_ITS | Encounter Summary ---
:1940 Author Organization [facility] Address [address] [place] [address] Care Team Providers Name Role Phone Elsewhere, Pcp Primary Care Provider Unavailable Encounter Details Date Type Department Care Team Description 06/07/2022 Orders Only Division of Gastroenterology in [place], [place] Trinh Mendes, Ph.D. [address] [facility] [address] [place] [phone] [place], [place] [phone] (Wo rk) Social History Tobacco Use Types [...] How often do you attend jain or sikh More than 4 time s [...] Support Nutrition Ankita Smyth M.D., Ph.D. [address] [place] [phone] Ace Morris, ALONAN, LD [address] [place] [phone] 06/20/2022 Comprehensive Visit [facility] Maurice Mendes M.D., Ph.D. [address] [place] [phone] 06/22/2022 Appointment Radiology Maurice Smyth M.D., Ph.D. [address] [place] [phone] 07/12/2022 Clinical Communication Admitting/Central Scheduling 08/31/2022 Appointment [facility] Maurice Mendes M.D., Ph.D. [address] [place] [phone] 09/01/2022 Appointment [facility]ology [facility] Maurice Mendes M.D., Ph.D. [address] [place] [phone] 09/05/2022 Appointment [facility] Maurice Mendes M.D., Ph.D. [address] [place] [phone] documented as of this encounter Visit Diagnoses Not on filedocumented in this encounter Care Teams Apparel Fashion Designer Relationship Specialty Start Date End Date Elsewhere, Pcp PCP - General Internal Medicine 06/05/22 documented as of this encounter
--- OUTSIDE RECORDS SUMMARY | 2022-06-14 06:19 | XMS_ITS | Clinical Summary ---
:1940 Author Organization [employer] [place] [address] Care Team Providers Name Role Phone Kush Doran MD Primary Care Provider [phone] Viki Abarca MD Unavailable Allergies Active Allergy Reactions Severity Noted Date Comments Sucralfate Other - Describe In 06/01/2022 Aluminum toxicity Comment Field Furosemide *Unknown 02/19/2020 On Torsemide Unlisted Allergen [...] Dispensed Refills Start End Status Date Date calcitrioL (ROCALTROL) Take three 36 capsule. 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 15-29 ml/min (HC) CPAPIndications: ELENI t CPAP machine 1 Each 11 01/25/20 Active (obstructive sleep for home use 22 apnea), Dry mouth at pressure: 13 cmw , Heated humidifier [...] Need: 99 months, Frequency of use: Daily metoprolol tartrate TAKE 1 TABLET 180 Tablet 0 03/27/20 Active (LOPRESSOR) 25 mg BY MOUTH TWICE 22 tabletIndications: DAILY Cardiovascular symptoms Dialyvite 100-1 mg tab Take 1 Tablet 0 03/19/20 Active by mouth at 22 bedtime. docusate (Colace) 100 Take 100 mg by 0 Active mg capsule mouth once daily in the evening. pantoprazole Take 1 Tablet 30 Tablet 0 05/14/20 Act lynsey (PROTONIX) 40 mg (40 mg) by 22 delayed-release mouth once tabletIndications: daily. Gastrointestinal hemorrhage with hematemesis allopurinoL (ZYLOPRIM) Take 1 Tablet 90 Tablet 3 05/30/20 Active 100 mg (100 mg) by 22 tabletIndications: mouth once Gout, unspecified daily. cause, unspecified chronicity, unspecified site amoxicillin (AMOXIL) TAKE 4 4 Capsule 1 05/30/20 Active 500 mg CAPSULES BY 22 capsuleIndications: MOUTH 1 HOUR Need for SBE (subacute BEFORE DENTAL bacterial APPOINTMENT endocarditis) prophylaxis sucralfate (CARAFATE) Take 1 g by 0 06/07/20 Active 100 mg/mL suspension mouth every 6 22 023 hours. ondansetron (ZOFRAN Take 4 mg by 0 06/07/20 Active ODT) 4 mg mouth every 6 22 disintegrating tablet hours if needed. amoxicillin (AMOXIL) TAKE 4 4 Capsule 1 01/30/20 Discontinued 500 mg CAPSULES BY 21 022 (Reorder capsuleIndications: MOUTH 1 HOUR (E-cancel not Need for SBE (subacute BEFORE DENTAL sent)) bacterial APPOINTMENT endocarditis) prophylaxis allopurinoL (ZYLOPRIM) TAKE 1 TABLET 90 Tablet 0 03/27/2005/22 Discontinued 100 mg BY MOUTH ONCE 22 022 (Reord er tabletIndications: DAILY ( E-cancel not Gout, unspecified se nt)) cause, unspecified chronicity, unspecified site sucralfate (CARAFATE) Take 10 mL 828 mL 0 04/16/20 Discontinued 100 mg/mL (1,000 mg) by 22 022 (*Ruddy rgic/Adv suspensionIndications: mouth four erse Rxn/Side Esophageal ulcer with times daily Effects) bleeding before meals and at bedtime. Take on empty stomach. Hospital, Clinic, or Ordered Dose Route Frequency Start Date End D ate Status Other Facility Administered Medication ferumoxytoL 510 mg IV SELECTION NOT 04/29/2022 Act lynsey (FERAHEME) 510 mg/17 AVAILABLE mL (30 mg/mL) injection 510 mgIndications: anemia in chronic kidney disease Active Problems Problem Noted Date GIB (gastrointestinal bleeding) 05/13/2022 Idiopathic esophageal varices with bleeding 04/22/2022 Moderate protein-calorie malnutrition 04/22/2022 Coffee ground emesis 04/14/2022 Trapped lung; Right w/ chronic effusion. 01/11/2022 Empyema, right (HC): tap 300ml 2021. Cx negative. 12/14/2021 Achalasia; discussed at multidisciplinary conference . No further 10/13/2020 procedural intervention. 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, not on chron ic dialysis 12/27/2018 Metabolic acidosis 12/27/2018 Sensorineural hearing loss, bilateral 07/04/2018 Chronic leukopenia [...] Resolved Problems Problem Noted Date Resolved Date Aspiration pneumonitis 04/27/2021 05/30/2022 Esophageal dysmotility 10/13/2020 05/18/2021 SOB (shortness of breath) 04/15/2019 09/30/2020 Anticoagulation monitoring, INR range 2-3 [Z79.01] 9 06/03/2022 Testicular atrophy 04/13/2012 05/28/2021 Plantar fasciitis 08/12/2011 [...] Encounters Date Type Specialty Care Team Description 06/08/2022 Office Visit Nilda Follow Up (Rosa Maria Gordon anticoagulation ) 06/08/2022 Travel 06/02/2022 Telephone Osbaldo Doran (CHART UPDATE/ Kush WARFARIN D/C) MD Bebe 06/01/2022 Orders Only Araceli, <No scans attac hed> Sebastian Berry MD 05/30/2022 Ancillary Procedure 05/30/2022 Office Visit Andreea Medicare ANNUAL (subsequent) Kush Visit (81 year old) MD Bebe 05/30/2022 Travel 05/23/2022 Telephone Rupinder Flores Medication Shamika Philippe MD 05/20/2022 Telephone 1, [facility] (Restart of Clinic warfarin) 05/20/2022 Anticoagulation 1, [facility]ticoagul[facility] (warfarin) Clinic 05/19/2022 Office Visit [facility] F[facility]U (Paola cash NikkoDieudonne 05/13/22, GI ble ed, travis Robertson MD ground emesis); Immunization/In jection 05/19/2022 Travel 05/17/2022 Hospital Encounter Luis Angel, Gastroint estinal hemorrhage, MD Paramjit unspecified gas trointestinal hemorrhage type 05/17/2022 Travel 05/16/2022 Patient Outreach Justen, Primary RN Care Management; Prisca Costello RN Hospital F/U (L BENITO 53) 05/13/2022 Anesthesia Event HarpalLeroy torres MD Zwebsirisha, Cj Cespedes, [employer]ER 05/13/2022 Surgery Laith, ESOPHAGOGASTROD UODENOSCOPY MD Tai 05/13/2022 Hospital Encounter [place], Gastroint estinal hemorrhage with hematemesis (Primary Dx); - Ricardo Gastrointestina l hemorrhage, unspecified gastrointestinal hemorrhage type 05/14/2022 MD Luis Angel Robertson, MD Paramjit Discharge Summary - Paramjit Plasencia MD - 05/14/2022 3:02 PM CDT Images from the original not e were not included. HOSPITALIST DISCHARGE SUMMAR Y ? ? [facility] Admission Date: 05/13/2022 Discharge Date: 05/14/2022 Discharge Plan: David katz was discharged to home. Principal Diagnosis Hospital Problem List Principal Problem: GIB (gastrointestinal bleed ing) Active Problems: Generalized anxiety disorde r Gout, unspecified Prediabetes ELENI 07/29/2003 AHI-17 FFM s tandard Essential hypertension Paroxysmal atrial fibrillat ion (HC) LVH (left ventricular hyper trophy) Thrombocytopenia (HC) Anticoagulation monitoring, INR range 2-3 [Z79.01] Anemia in stage 5 chronic k idney disease, not on chronic dialysis (HC) Chronic systolic heart fail ure (HC) Hemoptysis; 11/2021 ESRD (end stage renal disea se) (HC) [place]; [place] [facility] [place]. No further procedural intervention. Aspiration pneumonitis (HC) Empyema, right (HC): tap 30 0ml 2021. Cx negative. 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 Idiopathic esophageal varic es with bleeding (HC) Moderate protein-calorie ma lnutrition (HC) ADDITIONAL COMMENTS BANDARIN G DIAGNOSIS SPECIFICITY Additional Diagnosis [facility] Course Mr. David Castro is a 81 y.o. male with a history of End-stage renal disease on peritoneal dialysis, achalasia, history of idiopathic esophageal varices with bleeding and recent banding 03/2022 here, paroxysmal A. 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 ?? Prior to admission: Patient was recently admitted to this facility 04/14-04/16 for management of GI bleeding. He had hematemesis, EGD showed esophageal ulcer oozing blood. Clip was placed. Started on Rita fate. Given IV iron sucrose. Discharged. At some point there were concerns about his home Carafate regarding his end-stage renal disease and this was stopped. Shortly thereafter, 3 days prior to present ation he developed coffee-gr ound emesis. No syncope or presyncope. Some black stools. No bright red blood per rectum or robert hematemesis by his report. ?? In outside emergency departm ent: Hemoglobin 11, vital signs grossly unremarkable, no active bleeding. From discussion with transferring provider and ED paperwork review, was not given vitamin K or PPI. Patient was admitted and hem oglobin was monitored closely. Patient underwent EGD on 05/13 which showed dilation in the entire esophagus. An Endo Clip was found in the esophagus. LA grade D none reflux es ophagitis with no bleeding. Hypertrophic lower esophageal sphincter. Hematin in the entire stomach. X-ray esophagogram was recom mended by gastroenterology which will be done as outpatient. On the day of discharge, the patient feeling well. Hemoglobin is stable. We will not resume Coumadin at this time because of recurrent bleeding. Patient will need follow-up as outpatient with gastroente rology and also esophagogram as outpatient. He will be discharged in a stable condition. Recommendations for Outpatie nt Provider ? ? PCP: Kush Doran MD Recommendations for outpati ent provider Specific recommendations to be addressed at the follow up visit: no specific recommendations , routine post-hospital and medical follow-up. Pt had uncomplicated course but is higher risk for readmission. Medication regimen changes: see Hospital Course above. Warfarin will be discontinued due to recurrent GI bleeds Follow-up labs/imaging: X Ra y Esophagus In 3-5 for days Other specialty follow-up no t included in DC orders: None Special considerations: none . Functional evaluations: Fall Risk: Total Score (If 5 or > is High Risk): 3 (05/14/22826) NuDESC (>/=2 abnormal): 0 ( 05/14/22826) MOCA: // SLUMS: Discharge Medications Your Home Medicines START taking these medicines Instructions pantoprazole 40 mg delayed-r elease tablet For diagnoses: Gastrointesti nal hemorrhage with hematemesis Commonly known as: PROTONIX Take 1 Tablet (40 mg[facility]. TAKE THE MEDICINE(S) PRES CRIBED BELOW. The provider has reviewed how you said you take these medicine(s) and wants you to take them as prescribed, not as how you reported taking them. Instructions metoprolol tartrate 25 mg ta blet For diagnoses: Cardiovascula r symptoms Commonly known as: LOPRESSOR TAKE 1 TABLET BY MOUTH TWIC E DAILY Doctor's comments: Radha chaparro 1 year supply CONTINUE taking these medici jaz Instructions allopurinoL 100 mg tablet For diagnoses: Gout, unspeci fied cause, unspecified chronicity, unspecified site Commonly known as: ZYLOPRIM TAKE 1 TABLET BY MOUTH ONCE DAILY Doctor's comments: Radha g 1 year supply amoxicillin 500 mg capsule For diagnoses: Need for SBE (subacute bacterial endocarditis) prophylaxis Commonly known as: AMOXIL TAKE 4 CAPSULES BY MOUTH 1 HOUR BEFORE DENTAL APPOINTMENT calcitrioL 0.25 mcg capsule For diagnoses: Secondary viry al hyperparathyroidism (HC) Commonly known as: ROCALTROL Take three times a week on [facility]'s Colace 100 mg capsule Generic drug: docusate Take 100 mg by mouth once d aily in the evening. CPAP For diagnoses: ELENI (obstruct lynsey sleep [...] C-Folic Acid Take 1 Tablet by mouth at b edtime. sucralfate 100 mg/mL suspens ion For diagnoses: Esophageal ul cer with bleeding Commonly known as: CARAFATE Take 10 mL (1,000 mg) by [facility] four times daily before meals and at bedtime. Take on empty stomach. torsemide 20 mg tablet For diagnoses: CKD (chronic kidney disease) stage 4, GFR 15-29 ml/min (HC) Commonly known as: DEMADEX Take 1 Tablet (20 mg) [facility] daily. Doctor's comments: Radha chaparro 1 year supply STOP taking these medicines omeprazole 20 mg Delayed-Rel ease capsule Commonly known as: PRILOSEC warfarin 2 mg tablet Commonly known as: COUMADIN Where to get your medicines These medications were sent to [facility], [address], [facility] [address] Hours: M-F: 8:00am-6:00pm, Sat-Sun: 9:00am-2:00pm pantoprazole 40 mg delayed-r elease tablet Pertinent Findings / Procedu res First weight: 66.6 kg (146 l b 12.8 oz) (05/13/22 1137) Last weight: 72.2 kg (159 lb 3.2 oz) (05/14/22 0711) BP 106/47 (Cuff Size: Adult Regular) Pulse 72 Temp (!) 96.5 ??F (35.8 ??C) Resp 18 Wt 72.2 kg (159 lb 3.2 oz) SpO2 96% BMI 24.21 kg/m?? GENERAL: Patient is in fair condition, in no apparent distress HEENT: Patient is normocepha lic, atraumatic EYES: No conjunctival inject ion, no significant icterus RESPIRATORY: no inc wob, cta b CARDIOVASCULAR: RRR, no murm urs ABD: soft, nt, nd NEUROLOGIC: wnl grossly MS: No obvious muscular asym metry. Normal mood, affect, speech Skin: no rashes or lesions Consultants Encounter Notes Consults from Bernard Ozuna MD (Gastroenterology) Diet / Activity / Follow-Up After Discharge Orders and I nstructions After Hospital Follow Up Ap pointment(s) Please follow-up with [facility] in 1-2 weeks. Our office will call you to schedule this follow-up. If you do not hear from our office within a few days after discharge, please call our office at [phone] to schedule a follow-up visit. When to follow up: 11 to 14 days When is patient being disch arged?: Other/Unknown Primary Care Provider meño alvarado appointment(s) Kush Doran MD When to follow up: 1 to 5 d ays Up as tolerated It is important to slowly r eturn to your regular level of activity. Start with 5-10 minutes at one time and slowly build to 30 minutes at one time. Save your energy by spreading out activities that make you tired. Rest as needed. What you may eat and drink after your hospital stay: YOUR RECOMMENDED SELECTION FOR MEALS ARE: CLEAR LIQUID DIET: You may only eat or drink fo od items that are transparent (see through) and liquid at body temperature. Foods allowed on this diet i nclude pulp-free juice, gelatin, ice water, Popsicles??, ice chips, broths, sweetened tea or coffee and soda. When should you be concerne d? Your [...] medical emergency. Why were you at the [facility]? You were in the hospital fo r GI bleed. Pending Studies Lab results that may not be resulted at time of discharge: (From admission through now) Start Ordered 05/13/22 1200 Hemoglobin - Every 6 Hours Q6H, TIMED Start Priority Status 05/13/22 1200 TIMED Final re sult Details 05/13/22 1800 TIMED Final re sult Details 05/14/22 0000 TIMED Final re sult Details 05/14/22 0600 TIMED Final re sult Details 05/14/22 1200 TIMED Final re sult Details 05/13/22 1152 Total time spent on discharg e coordination: 35 minutes. Patient was seen and examined today. Paramjit Plasencia MD Hospitalist, [facility] ? ? [phone] 05/13/2022 Travel 05/06/2022 Orders Only Lab, [facility] 05/06/2022 Nurse/Clinic Staff Infusion Therapy (Feraheme 2/2) Only 05/06/2022 Anticoagulation 1, [facility] (warfarin) Clinic 05/06/2022 Travel 05/03/2022 Nurse/Clinic Staff Infusion Therapy (Feraheme 1/2) Only 05/03/2022 Travel 05/02/2022 Telephone Andreea, Alfonso Spence MD 04/29/2022 Orders Only [place], <No scans attac hed> Sebastian Berry MD 04/21/2022 Office Visit [facility] F/U (MEGHAN Danielle 04/16/22, Esopha geal ulcers) MD Marcelo 04/21/2022 Travel 04/18/2022 Patient Outreach Justen Primary RN Care Management; Prisca Costello RN Hospital F/U (L BENITO 54) 04/15/2022 Surgery Laith, ESOPHAGOGASTROD UODENOSCOPY WITH MD Tai HEMOSTASIS 04/15/2022 Anesthesia Event Hestness, Juan Pablo Veloz MD 04/15/2022 Travel 04/14/2022 - Hospital Encounter Luis Angel ESRD (end stage renal disease) (HC) (Primary Dx); 04/16/2022 MD Paramjit Esophageal ulcer with bleeding Jama Davies MD Ellis, Shane Thomas, MD Hospitalists, [facility] Discharge Summary - Paola Tabares MD - 04/16/2022 1:54 PM CDT Images from the original not e were not included. HOSPITALIST DISCHARGE SUMMAR Y ? ? [facility] Admission Date: 04/14/2022 Discharge Date: 04/16/2022 Discharge [...] COMMENTS REGARDIN G DIAGNOSIS SPECIFICITY Additional Diagnosis [facility] Course Mr. David Castro is a 9 [...] dizziness. Prior to admission: Patient [facility] to [facility] on 04[facility]13[facility]2022 after multiple episodes of vomiting [...] headaches, vision changes. Patient was admitted to [facility]. He was seen by GI and underwent [...] ROCALTROL Take three times a week on [facility]'s CPAP For diagnoses: ELENI (obstruct lynsey sleep [...] Take 1 Tablet (20 mg) by mo ut once daily. Doctor's comments: Radha chaparro 1 year supply warfarin 2 mg tablet For diagnoses: Paroxysmal at rial fibrillation (HC), Anticoagulation monitoring, INR range 2-3 Commonly known as: COUMADIN Take by mouth 1 mg (2 mg x 0.5) every Mon, Mon, Alyssa; 2 mg (2 mg x 1) all other days OR as directed Where to get your medicines These medications were sent to [facility] [address] [place] [address], [address], [facility] [address] Hours: M-F: 8:00am-6:00pm, Sat-Sun: 9:00am-2:00pm sucralfate 100 [...] kg/m?? GENERAL: Lying in bed, no ac [place] distress EYES: Anicteric without inje ction. HEAD, [...] 0518 SODIUM 147* POTASSIUM 3.6 CHLORIDE 108 MG5NMQLE 29 ANIONGAP 10 BUN 99* CREATININE 3.97* [...] (Nephrology) Consults from Bridgett Lester PA (Physician Band Booker) Diet / Activity / Follow-Up After Discharge [...] need to reschedule your appointment, please call [phone]. [facility] [address] [place] [address] When to follow up: 1 to 5 [...] 24 hours . PATIENT COMMUNICATION Please call Rosalbavidal GAMEZ at [phone] to schedule a follow up appointment with Business Services Manager. Primary Care Provider meño w jenny appointment(s) Ksuh Doran MD When to follow up: 1 [...] medical emergency. Why were you at the [facility]? The reason you were in the hospital was for an EGD (also called Esophagogastroduodenoscopy) Why were you at the [facility]? You were in the hospital fo r esophageal ulcers with bleeding. Pending Studies Lab results that may not be resulted at time of discharge: (From admission through now) Start Ordered 04/16/22 1130 VITAMIN B12 O NE TIME, RA 04/16/22 1126 Total time spent on discharg e coordination: 35 minutes. Patient was seen and examined today. Spencer Tabares MD Hospitalist, [facility] ? ? [phone] 04/13/2022 Orders Only Scanner <No scans attac [...] Anticoagula tion (Annual MD Bebe re-enrollment ) from Last 3 Months Immunizations Name Administration Dates Next Due AMB Influenza, IIV4 PF (=>6 mos 06/13/2018 Flulaval,Fluzone Fluarix)(Flu Clinic Only) COVID-19 vaccine ([employer] 05/19/2022 30mcg/0.3mL) 12YO+ BIVALENT BOOSTER PF, MDV COVID-19 vaccine ([employer] 05/18/2021, 10/14/2020, 30mcg/0.3mL) PF, MDV Hepatitis B (Adult) 12/22/2008, 07/21/2008, 06/19/2008 Hepatitis B (Peds) 06/19/2008 Influenza Virus, Unspecified 05/06/2020 Influenza, High-dose Inactivated 05/18/2016, 06/09/2015, Influenza, IIV3 (Age 6-35 mos) 05/13/2011, 05/04/2010 Influenza, IIV3 (Age >=3 years) 05/16/2013, 04/13/2012, 04/22, 05/04/2010, 07/18/2007, 06/15/2006, 07/12/2002 Influenza, Inactivated AIIV4 (Age 65+ 05/19/2022, 05/18/2021 , 05/06/2020 Years) Preserv Free Influenza, Inactivated IIV3 [...] years ago. Alcohol Use Standard Drinks/Week Comments Not Currently 0 (1 standard drink = 0.6 oz pure alcoho l) Sex Assigned at Date Recorded Not on file COVID-19 Exposure Response Date Recorded In the last 10 days, have you been in contact with No / Unsu re 06/08/2022 9:42 AM CDT someone who was confirmed or suspected to have Coronavirus/COVID-19? Obstetrics History Last Filed Vital Signs Vital Sign Reading Time Taken Comments Blood Pressure 92/52 06/08/2022 10:01 AM CDT Pulse 62 06/08/2022 10:01 AM CDT Temperature 36.5 ??C (97.7 ??F) 05/19/2022 2:16 PM CDT Respiratory Rate 14 06/08/2022 10:01 AM CDT Oxygen Saturation 99% 06/08/2022 10:01 AM CDT Inhaled Oxygen Concentration - - Weight 74.1 kg (163 lb 4.8 oz) 06/08/2022 10:01 AM CDT Height 172 cm (5' 7.72) 06/08/2022 10:01 AM CDT Body Mass Index 25.04 06/08/2022 10:01 AM CDT Plan of Treatment Upcoming Encounters Date Type Specialty Care Team Description 06/22/2022 Office Visit Kush Doran MD [address] [place], [place] [address] (Wo rk) Health Maintenance Due Date Last Done Comments Medicare Wellness for age 65+ 05/30/2023 05/30/2022, 2020, 03/30/2020, Additional history exists Depression screening for age 12+ 06/02/2023 06/02/2022, 05/2022, 05/30/2022, Additional history exists BMI (ht and wt on same day) for 06/08/2023 06/08/2022, 05/21, age 18+ 05/19/2022, Additional history exists Tetanus booster 07/10/2024 07/10/2014, 03/18/2008 Tdap Completed 07/10/2014 Pneumococcal series for age 65+ Completed 11/05/2014, 01/19 Zoster (shingles) series for age Completed 02/14/2019, , 50+ 04/08/2010 COVID-19 vaccine series Completed 05/19/2022, 05/18/2021, 10/14/2020, Additional history exists Influenza for age 65+ Completed 05/19/2022, 05/18/2021, 05/06/2020, Additional history exists Medical Devices Implanted Type Area Instructional Design Specialist Device Shelf Model / Identifier Expiration Serial / Date Lot Cath Dial Adlt Std Merit Classic Peritoneal Perc N/A: Abdome n 05/14/2024 CF- [id number] / Implanted: Qty: 1 on 08/16/2021 by Malik shen, Clayton Gagnon MD at [facility] / Description: CATH DIAL ADLT STD MERIT CL ASSIC PERITONEAL PERC Procedures Procedure Name Priority Date/Time Associated Diagnosis Comme nts XR DXA BONE DENSITY 2 SITES Routine 05/30/2022 ESRD (end sta ge Results for AXIAL AND 1 SITE PERIPHERAL 3:10 PM CDT kristel l disease) (HC) this Osteoporosis, procedure are unspecified in the osteoporosis type, results unspecified section. pathological fracture presence PROTIME-INR STAT 05/19/2022 Paroxysmal atrial Results fo r 2:53 PM CDT fibrillation (HC ) this Anticoagulation procedure ar e monitoring, INR in the range 2-3 results section. HEMOGLOBIN Routine 05/19/2022 Anemia in stage 5 Results fo r 2:53 PM CDT chronic kidney this disease, not on procedure ar e chronic dialysis in the (HC) results section. XR ESOPHAGUS Routine 05/17/2022 Gastrointestinal Results for 1:39 PM CDT hemorrhage, this unspecified procedure are gastrointestinal in the hemorrhage type results section. HEMOGLOBIN Timed 05/14/2022 Results for 12:01 PM CDT this procedure are in the results section. GLUCOSE METER Timed 05/14/2022 Results for 11:34 AM CDT this procedure are in the results section. GLUCOSE METER Timed 05/14/2022 Results for 7:46 AM CDT this procedure are in the results section. PROTIME-INR Early AM 05/14/2022 Results for 6:27 AM CDT this procedure are in the results section. BASIC METABOLIC PANEL Early AM 05/14/2022 Result s for 6:27 AM CDT this procedure are in the results section. HEMOGLOBIN Timed 05/14/2022 Results for 6:27 AM CDT this procedure are in the results section. HEMOGLOBIN Timed 05/13/2022 Results for 11:49 PM CDT this procedure are in the results section. GLUCOSE METER Timed 05/13/2022 Results for 9:17 PM CDT this procedure are in the results section. HEMOGLOBIN Timed 05/13/2022 Results for 6:02 PM CDT this procedure are in the results section. GLUCOSE METER Timed 05/13/2022 Results for 5:59 PM CDT this procedure are in the results section. ESOPHAGOGASTRODUODENOSCOPY 05/13/2022 esophagitis 4:12 PM CDT ENDOSCOPY 05/13/2022 Results for 4:04 PM CDT this procedure are in the results section. TRANSFUSE PLASMA (NURSE STAT 05/13/2022 COMMUNICATION ORDER) 3:26 PM CDT PLASMA ORDER STAT 05/13/2022 Results for 2:46 PM CDT this procedure are in the results section. PLASMA SNGL DON FFPEA UNIT STAT 05/13/2022 R esults for 1:45 PM CDT this procedure are in the results section. COVID 19 Timed 05/13/2022 Results for 12:30 PM CDT this procedure are in the results section. COVID 19 COLLECTION Today 05/13/2022 Results for 12:30 PM CDT this procedure are in the results section. TYPE & SCREEN STAT 05/13/2022 Results for 12:08 PM CDT this procedure are in the results section. CBC W PLT NO DIFF Today 05/13/2022 Results fo r 12:08 PM CDT this procedure are in the results section. COMP METABOLIC PANEL Today 05/13/2022 Results for 12:08 PM CDT this procedure are in the results section. PROTIME-INR STAT 05/13/2022 Results for 12:08 PM CDT this procedure are in the results section. HEMOGLOBIN Timed 05/13/2022 Results for 12:08 PM CDT this procedure are in the results section. INR,POCT Routine 05/06/2022 Paroxysmal atrial Results fo r 1:54 PM CDT fibrillation (HC ) this Anticoagulation procedure ar e monitoring, INR in the range 2-3 results section. CBC WITH AUTO DIFFERENTIAL Routine [...] procedure are in the results section. ESOPHAGOGASTRODUODENOSCOPY 04/15/2022 esophageal ulc er, WITH DILATION 4:24 PM CDT achalasia ESOPHAGOGASTRODUODENOSCOPY 04/15/2022 esophageal ulc er, WITH BIOPSY 4:24 PM CDT achalasia ESOPHAGOGASTRODUODENOSCOPY 04/15/2022 esophageal ulc er, WITH HEMOSTASIS 4:24 PM CDT achalasia HEMOGLOBIN Today [...] 8:33 AM CDT fibrillation (HC ) this Anticoagulation procedure ar e monitoring, INR in the range 2-3 results section. INR,POCT Routine 03/25/2022 Paroxysmal atrial Results fo r 7:37 AM CDT fibrillation (HC ) this Anticoagulation procedure ar e monitoring, INR in the range 2-3 results section. from Last 3 Months Results (ABNORMAL) XR DXA BONE DENSITY 2 SITES AXIAL AND 1 SITE PERIPHERAL (05/30/2022 3:10 PM CDT) Anatomical Region Laterality Modality LUMBAR SPINE Other Specimen (Source) Anatomical Location Collection Method / Collectio n Time Received Time / Laterality Volume Impressions 05/31/2022 1:38 PM CDT Osteopenia. RECOMMENDATIONS: The National Osteoporosis Foundation rec ommends pharmacologic treatment for patients with T-scores of -2.5 or le ss, patients with prior history of fragility fractures, or patients with 10 -year probability of greater than 3% at hips or greater than 20% of suffer ing major osteoporotic fractures. Recommend continued optimization of calc ium and vitamin D intake through dietary means and/or supplementation and regular exercise. Repeat scan recommended in 3-5 years. Chyna Barragan PA-C [facility] 05/31/2022 Narrative 05/31/2022 1:38 PM CDT For Patients: Results are automatically released to your [facility] account once available, in com pliance with federal regulations. This means that you may see your results before your provider has had a chance to review them. Please allow 2-3 business days for your provider to comment on the results. XR DXA Bone Mineral Density (BMD) EXAM LOCATION: [address] [address] PATIENT NAME: David Castro DATE OF : 1940 EXAM DATE: 05/30/2022 REQUESTING PROVIDER: Kush Doran MD GENDER AT : male HEIGHT: 5' 7.72 (05/30/2022) WEIGHT: ??164 lb 6.4 oz (05/30/2022) MENOPAUSAL STATUS: Not Applicable RACE/ETHNICITY: White RISK FACTORS: Hyperparathyroidism, Smoki ng (prior) and White Race CURRENT MEDICATION FOR BONE LOSS: NONE INDICATION: Screening for osteoporosis a nd ESRD (END STAGE RENAL DISEASE) COMPARISON DATE(S): 2017 DXA scans are compared to prior studies for a patient only when the two (or more) studies were performed on the same scanner. It is not possible to compare data generated on one scanner to data from another because there are not standards in DXA equipment . This applies even if the two scanners are made by the same manufactur er. PROCEDURE: Dual-energy x-ray absorptiome try performed with routine technique. Reporting is completed in the form of a T-score. The T-score represents the standard deviation from p eak bone mass based on young healthy adult. A Z-score is used for kiarra gnosis in premenopausal women, and for men under the age of 50. FINDINGS: RESULT LUMBAR SPINE L1 - L4 BMD: 1.547 g/cm2 T-Score: + 2.7 Z-Score: + 3.6 Change from prior: ??None (DIDN'T TREND WITH 2017 SCAN) RESULTS FEMUR Left femoral neck BMD: 0.767 g/cm2 T-Score: - 2.3 Z-Score: - 0.7 Change from prior in 2017: ??Decrease 14 .3%. Right femoral neck BMD: 0.790 g/cm2 T-Score: - 2.2 Z-Score: - 0.5 Change from prior in 2017: ??Decrease 7. 2%. Left hip BMD: 0.757 g/cm2 T-Score: - 2.4 Z-Score: - 1.2 Change from prior in 2017: ??Decrease 15 .0%. Right hip BMD: 0.770 g/cm2 T-Score: - 2.3 Z-Score: - 1.1 Change from prior in 2017: ??Decrease 11 .4%. RESULT FOREARM Left Forearm distal radius BMD: 0.596 g/ cm2 T-Score: - 2.3 Z-Score: - 1.1 Change from prior in 2017: ??Decrease 2. 3%. WHO criteria: Normal: T-score at or above -1 SD Osteopenia: T-score between -1.1 and -2. 4 SD Osteoporosis: T-score at or below -2.5 S D FRAX RISK CALCULATION (USED FOR OSTEOPEN IA ONLY): 10-year probability of major osteoporoti c fracture: 10.5%. 10-year probability of hip fracture: 4.5 %. Kush Doran MD DEXA (ABNORMAL) HEMOGLOBIN (05/19/2022 2:53 PM CDT)Only the most recent of9 results within the time period is included. athologist Signature HEMOGLOBIN 11.1 (L) 13.5 - 05/19/2022 [facility] 17.5 g/dL 3:00 PM CDT [facility] MCV 99 80 - 100 05/19/2022 [facility] fL 3:00 PM CDT [facility] Specimen Anatomical Collection Method / Collection Time Recei thony Time (Source) Location / Volume Laterality Blood BLOOD SPECIMEN / Venipuncture / 05/19/2022 2:53 2021 2:56 Unknown Unknown PM CDT PM CDT Dieudonne Son MD HEMATOLOGY Performing Organization Address City/State/ZIP Code Phon e Number [facility] [address] [place] [address] (ABNORMAL) PROTIME-INR (05/19/2022 2:53 PM CDT)Only the most recent of4 results within the time period is included. P athologist Signature INR 1.1 <1.3 05/19/2022 [facility] [place] 8:14 PM CDT LABORATORY-[facility] PROTIME 13.9 (H) 12.0 - 13.8 05/19/2022 [facility] [place] sec 8:14 PM CDT LAB[facility]AT[facility] Specimen Anatomical Collection Method / Collection Time Recei thony Time (Source) Location / Volume Laterality Blood BLOOD SPECIMEN / Venipuncture / 05/19/2022 2:53 2021 2:56 Unknown Unknown PM CDT PM CDT Narrative [facility] LABORATORY-CENTRAL LABORAT ORY - 05/19/2022 8:14 PM CDT ?Therapeutic Range 2.0-3.0 for most anticoagulated patients 2.5-3.5 or 4.0 for high risk patients The INR is only used for patients on sta ble oral anticoagulant therapy. It makes no significant contribution to the diagnosis or treatment of patients whose Protime is prolonged f or other reasons. INR results are increased when heparin l evels exceed 1.0 U/mL, which corresponds to an aPTT >125 seconds if the patient is on UFH. Kush Doran MD HEMATOLOGY Performing Organization Address City/State/ZIP Code Phon e Number [facility] [address] [place] [address] LABORATORY-CENTRAL [address] LABORATORY XR ESOPHAGUS (05/17/2022 1:39 PM CDT) Anatomical Region Laterality Modality Esophagus Digital Radiography, Computed Tomography Specimen (Source) Anatomical Collection Method Collection Time Re ceived Time Location / / Volume Laterality 05/17/2022 2:45 PM CDT Narrative 05/17/2022 2:45 PM CDT For Patients: ??As a result of the Century Cures Act, medical imaging exams and procedure reports are released immediately into your electronic medical record. ??You may view this report before you r referring provider. ??If you have ques tions, please contact your health care provider. INDICATION: Gas just hemorrhage. Achalasia. COMPARISON: 01/21/2021. FINDINGS: Swallowing is initiated normally. The es ophagus is very dilated with no primary or secondary peristaltic contractions. There are propulsive tertiary waves within the lower esophagus. Esophageal mucosal detail is prominent without linear folds consistent with an esophagitis. The gastroesophageal junction is very narrowed with somewhat delayed emptying into the stomach. On delayed image at 20 minutes de monstrated esophagus to be fully empty. The stomach and duodenum appear grossly normal. Nineteen images were obtained. 1 minute and 9 seconds of fluoroscopy was utilized. Impression : Very dilated esophagus with no primary o r secondary peristaltic contractions and limited opening of the gastroesophageal junction consistent with achalasia. There is a superimposed esophagitis. There wa s a similar appearance on the exam from 01/21/2021. Dictated by Serge Skelton MD @ May 17 2022 ??2:45PM (Electronically Signed) ?? Procedure Note Serge Skelton MD - 2 For Patients: As a result of the ntury Cures Act, medical imaging exams and procedure reports are released immediately into your electronic medical record. You may view this report before your referring provider. If you have questions, please contact [facility] care provider. INDICATION: Gas just hemorrhage. Achalasia. COMPARISON: 01/21/2021. FINDINGS: Swallowing is initiated normally. The es ophagus is very dilated with no primary or secondary peristaltic contractions. There are propulsive tertiary waves within the lower esophagus. Esophageal mucosal detail is prominent without linear folds consisten t with an esophagitis. The gastroesophageal junction is very narrowed with somewhat delayed emptying into the stomach. On delayed image at 20 minutes demonstrated esophagus to be fully empty. The stomach and duodenum appear grossly normal. Nineteen images were obtained. 1 minute and 9 seconds of fluoroscopy was utilized. Impression : Very dilated esophagus with no primary o r secondary peristaltic contractions and limited opening of the gastroesophageal junction consistent with achalasia. There is a superimposed esophagitis. There was a similar appearance on the exam from . Dictated by Serge Skelton MD @ May 17 2022 2:45PM (Electronically Signed) Paramjit Plasencia MD FLUOROSCOPY GLUCOSE METER (05/14/2022 11:34 AM CDT)Only the most recent of4 resultswithin the time period is included. P athologist Signature GLUCOSE METER 93 65 - 100 05/14/2022 [facility] mg/dL 11:35 AM T [facility] Specimen Anatomical Collection Method Collection Time Receive d Time (Source) Location / / Volume Laterality Blood BLOOD SPECIMEN / 05/14/2022 11:34 09/2 022 Unknown AM CDT 11:34 AM CDT Paramjit Plasencia MD CHEMISTRY Performing Organization Address City/State/ZIP Code Phon e Number [facility] [address] [place] [address] CENTER (ABNORMAL) BASIC METABOLIC PANEL (05/14/2022 6:27 AM CDT)Only the most recent of 3 resultswithin the time period is included. Analysis Performed At Patho logist Time Signature SODIUM 144 135 - 145 05/14/2022 [facility] mmol/L 7:30 AM T [facility] POTASSIUM 3.5 3.5 - 5.0 05/14/2022 [facility] mmol/L 7:30 AM T [facility] CHLORIDE 105 98 - 110 05/14/2022 [facility] mmol/L 7:30 AM T [facility] CO2,TOTAL 30 21 - 31 05/14/2022 [facility] mmol/L 7:30 AM T [facility] ANION GAP 9 5 - 18 05/14/2022 [facility] 7:30 AM T [facility] GLUCOSE 96 65 - 100 05/14/2022 [facility] mg/dL 7:30 AM T [facility] CALCIUM 8.7 8.5 - 10.5 05/14/2022 [facility] mg/dL 7:30 AM T [facility] BUN 42 (H) 8 - 25 05/14/2022 [facility] mg/dL 7:30 AM T [facility] CREATININE 3.61 (H) 0.72 - 05/14/2022 [facility] 1.25 mg/dL 7:30 AM T [facility] BUN/CREAT RATIO 12 10 - 20 05/14/2022 [facility] 7:30 AM T [facility] eGFR 16 (L) >90 05/14/2022 [facility] mL/min/1.7 7:30 AM T [facility] 3m2 CENTER Comment: As of 2021, eGFR is [...] Laterality Blood BLOOD SPECIMEN / Venipuncture / 05/14/2022 6:27 2021 7:05 Unknown Unknown AM CDT AM CDT Ricardo Sawyer MD CHEMISTRY Performing Organization Address City/State/ZIP Code Phon e Number [place] [id number] [place] [address] CENTER TRANSFUSE PLASMA (NURSE COMMUNICATION ORDER) (05/13/2022 4:50 PM CDT) Specimen (Source) Anatomical Location Collection Method / Collectio n Time Received Time / Laterality Volume Blood BLOOD SPECIMEN / Unknown Ricardo Sawyer MD NURSING BLOOD BANK ENDOSCOPY (05/13/2022 4:04 PM CDT) Specimen (Source) Anatomical Collection Method Collection Time Re ceived Time Location / / Volume Laterality 05/13/2022 4:04 PM CDT Narrative This result has an attachment that is no t available. Transcriptions Tai Ozuna MD - 05/13/2022 4:46 PM CDT Endoscopy Patient Name: David Castro Procedure D ate: 05/13/2022 Gender: Male Date of : 1940 Admit Type: Inpatient Procedure: Upper GI endoscopy Proceduralist: Tai Ozuna MD Indications/Pre-Op Diagnosis: Hematemesi s Medications: Monitored Anesthesia Care Procedure Description: Risk [...] blood loss: none. Specimen collected: None Findings: The lumen of the esophagus was moderate ly dilated. An endoclip was found in the middle thi rd of the esophagus. LA Grade D (one or more mucosal breaks involving at least 75% of esophageal circumference) esophagitis w ith no bleeding was found in the lower third of the esophagus. A hypertonic lower esophageal sphincter was found. Hematin (altered blood/rvcbop-furuqe-sj ke material) was found in the entire examined stomach. The entire examined stomach was normal. The first portion of the duodenum and s econd portion of the duodenum were normal. Impressions/Post-Op Diagnosis: - Dilation in the entire esophagus. - An endoclip was found in the esophagu s. - LA Grade D non-reflux esophagitis wit h no bleeding. - Hypertonic lower esophageal sphincter . - Hematin (altered blood/coffee-ground- like material) in the entire stomach. - Normal stomach. - Normal first portion of the duodenum and second portion of the duodenum. - No specimens collected. Recommendation: - [facility] for [facility] ngoing care. - Clear liquid diet. - Continue present medications. - Use Protonix (pantoprazole) 40 mg PO daily. - Use sucralfate tablets 1 gram PO QID. Author aware of patient's dialysis status but recurrent esophagit is/ulces due to bolus stasis from underlying achalasia which PPI is not g oing to help. - Outpatient manometry. - Recommend to stop coumadin given mult iple bleeding episodes and currently for a-fib. Tai Ozuna MD 05/13/2022 4:46:18 PM This report has been signed electronical ly. Note Initiated On: 05/13/2022 4:04 PM Total Procedure Duration Time 0 hours 9 minutes 16 seconds Tai Ozuna MD PROCEDURE ORD PLASMA ORDER, 1 unit (05/13/2022 2:46 PM CDT) P athologist Signature QUANTITY 1 05/13/2022 2:46 [facility] PM CDT [facility] BLOOD BANK Specimen (Source) Anatomical Collection Method Collection Time Re ceived Time Location / / Volume Laterality Blood BLOOD SPECIMEN / 05/13/2022 1:39 Unknown PM CDT Ricardo Sawyer MD BLOOD BANK Performing Organization Address City/[facility]/ZIP Code Phon e Number [address] [address] [facility] B[facility]OD [facility] PLASMA SNGL DON FFPEA UNIT (05/13/2022 1:45 PM CDT) [facility] Method Time Signature PRODUCT BLOOD O Rh Positive [facility] BLOOD BANK PRODUCT ID [id number] [facility] BLOOD BANK PRODUCT STATUS Transfused [facility] BLOOD BANK PRODUCT FP Aph ACD-A [facility] DESCRIPTION [address] [place] [address] BLOOD BANK PRODUCT CODE [id number] [facility] BLOOD BANK ISSUE DATE/TIME 05/13/22 15:12 [facility] BLOOD BANK Specimen (Source) Anatomical Location Collection Method / Collectio n Time Received Time / Laterality Volume Ricardo Sawyer MD BLOOD BANK Performing Organization Address City/[facility]/ZIP Code Phon e Number [address] [address] [facility]OD B[facility] COVID 19 (05/13/2022 12:30 PM CDT) [facility] Method Time Signature COVID 19 Not detected Not detected 05/13/2022 [facility] [place] 9:18 PM CDT [facility] Specimen Anatomical Location / Collection Method Collection Matthew e Received Time (Source) Laterality / Volume Other SPECIMEN FROM Non-Blood / 05/13/2022 12:30 05/13/2022 8:06 NASOPHARYNGEAL Unknown PM CDT PM CDT STRUCTURE / Unknown Narrative [facility] - 022 9:18 PM CDT This test has been authorized by FDA und er an Emergency Use Authorization (EUA). This test is only authorized for the duration of time the declaration that circumstances exist justifying the authorization of th e emergency use of in vitro diagnostic tests for detection of SARS-CoV-2 virus and/or diagnosis of COVID-19 infection under section 564(b)(1) of the Act, 21 U.S.C. 360bbb-3(b) (1), unless the authorization is terminated or revoked sooner. Ricardo Sawyer MD MICROBIOLOGY Performing Organization Address City/[facility]/ZIP [facility] Phon e Number [address] [address] CENTER COVID 19 COLLECTION (05/13/2022 12:30 PM CDT) [facility] [employer] Method Time Signature TESTING [facility] 05/13/2022 [facility] LABORATORY Laboratory 8:06 PM CDT [facility] Comment: Specimen submitted to [facility] for testing. Specimen Anatomical Location / Collection Method Collection Matthew e Received Time (Source) Laterality / Volume Other SPECIMEN FROM Non-Blood / 05/13/2022 12:30 05/13/2022 NASOPHARYNGEAL Unknown PM CDT 12:43 PM CDT STRUCTURE / Unknown Ricardo Sawyer MD SEND OUTS Performing Organization Address [facility] Phon e Number [address] [address] CENTER Type and Screen (05/13/2022 12:08 PM CDT) [facility] [employer] Method Time Signature ABORH O Rh 05/13/2022 [facility] Positive 1:06 PM CDT [facility] BLOOD BANK ANTIBODY Negative Negative 05/13/2022 [facility] SCREEN 1:06 PM CDT [facility] BLOOD BANK SPECIMEN 05/16/22 05/13/2022 [facility] EXPIRATION 23:59 1:06 PM CDT REGIONAL DATE/TIME [facility] CENTER BLOOD BANK Specimen Anatomical Collection Method / Collection Time Recei thony Time (Source) Location / Volume Laterality Blood BLOOD SPECIMEN / Venipuncture / 05/13/2022 12:08 05/13 Unknown Unknown PM CDT 12:15 PM CDT Ricardo Sawyer MD BLOOD BANK Performing Organization Address City/State/ZIP Code Phon e Number [facility] [address] [place] [address] CENTER BLOOD BANK (ABNORMAL) CBC W PLT NO DIFF (05/13/2022 12:08 PM CDT) Analysis Performed At Patho logist Time Signature WHITE BLOOD 6.5 4.5 - 11.0 05/13/2022 [facility] COUNT thou/cu mm 12:18 PM CDT [facility] RED BLOOD COUNT 3.32 (L) 4.30 - 05/13/2022 [facility] 5.90 12:18 PM CDT [facility] CENTER HEMOGLOBIN 10.5 (L) 13.5 - 05/13/2022 [facility] 17.5 g/dL 12:18 PM CDT [facility] HEMATOCRIT 33.8 (L) 37.0 - 05/13/2022 [facility] 53.0 % 12:18 PM CDT [facility] MCV 102 (H) 80 - 100 05/13/2022 [facility] fL 12:18 PM CDT [facility] MCH 31.6 26.0 - 05/13/2022 [facility] 34.0 pg 12:18 PM CDT [facility] MCHC 31.1 (L) 32.0 - 05/13/2022 [facility] 36.0 g/dL 12:18 PM CDT [facility] RDW 15.0 11.5 - 05/13/2022 [facility] 15.5 % 12:18 PM CDT [facility] PLATELET COUNT 178 140 - 440 05/13/2022 [facility] thou/ mm 12:18 PM CDT [facility] MPV 8.4 6.5 - 11.0 05/13/2022 [facility] 12:18 PM CDT [facility] NRBC 0.0 % 05/13/2022 [facility] 12:18 PM CDT [facility] ABS NRBC 0.0 thou /cu 05/13/[address] [facility] 12:18 PM CDT [facility] Specimen Anatomical Collection Method / Collection Time Recei thony Time (Source) Location / Volume Laterality Blood BLOOD SPECIMEN / Venipuncture / 05/13/2022 12:08 05/13 Unknown Unknown PM CDT 12:14 PM CDT Ricardo Sawyer MD HEMATOLOGY Performing Organization Address City/State/ZIP Code Phon e Number [facility] [address] [place] [address] CENTER (ABNORMAL) COMP METABOLIC PANEL (05/13/2022 12:08 PM CDT) [facility] Method Time Signature SODIUM 144 135 - 145 05/13/2022 [facility] mmol/L 12:39 PM CDT [facility] POTASSIUM 3.4 (L) 3.5 - 5.0 05/13/2022 [facility] mmol/L 12:39 PM CDT [facility] CHLORIDE 102 98 - 110 05/13/2022 [facility] mmol/L 12:39 PM CDT [facility] CO2,TOTAL 32 (H) 21 - 31 05/13/2022 [facility] mmol/L 12:39 PM CDT [facility] ANION GAP 10 5 - 18 05/13/2022 [facility] 12:39 PM CDT [facility] GLUCOSE 117 (H) 65 - 100 05/13/2022 [facility] mg/dL 12:39 PM CDT [facility] CALCIUM 8.8 8.5 - 10.5 05/13/2022 [facility] mg/dL 12:39 PM CDT [facility] BUN 46 (H) 8 - 25 05/13/2022 [facility] mg/dL 12:39 PM CDT [facility] CREATININE 3.82 (H) 0.72 - 05/13/2022 [facility] 1.25 mg/dL 12:39 PM CDT [facility] BUN/CREAT RATIO 12 10 - 20 05/13/2022 [facility] 12:39 PM CDT [facility] ALBUMIN 2.8 (L) 3.2 - 4.6 05/13/2022 [facility] g/dL 12:39 PM CDT [facility] PROTEIN,TOTAL 5.9 (L) 6.0 - 8.0 05/13/2022 [facility] g/dL 12:39 PM CDT [facility] GLOBULIN 3.1 2.0 - 3.7 05/13/2022 [facility] g/dL 12:39 PM CDT [facility] A/G RATIO 0.9 (L) 1.0 - 2.0 05/13/2022 [facility] 12:39 PM CDT [facility] BILIRUBIN,TOTAL 0.4 0.2 - 1.2 05/13/2022 [facility] mg/dL 12:39 PM [facility] ALK PHOSPHATASE 189 (H) 50 - 136 05/13/2022 [facility] IU/L 12:39 PM [facility] ALT (SGPT) 10 8 - 45 05/13/2022 [facility] IU/L 12:39 PM [facility] AST (SGOT) 22 2 - 40 05/13/2022 [facility] IU/L 12:39 PM [facility] eGFR 15 (L) >90 05/13/2022 [facility] mL/min/1.7 12:39 PM [place] [address] CENTER Comment: As of 2021, eGFR is [...] Laterality Blood BLOOD SPECIMEN / Venipuncture / 05/13/2022 12:08 05/13 Unknown Unknown PM CDT 12:14 PM CDT Ricardo Sawyer MD CHEMISTRY Performing Organization Address City/State/[place] [address] CENTER (ABNORMAL) INR,POCT (05/06/2022 1:54 PM CDT)Only the most recent of3 results within the time period is included. athologist Signature INR 2.1 (H) <1.3 05/06/2022 [facility] 1:59 PM CDT [facility] Specimen Anatomical Collection Method Collection Time Receive d Time (Source) Location / / Volume Laterality Blood BLOOD SPECIMEN / 05/06/2022 1:54 PM 05/06 1:59 Unknown CDT PM CDT Narrative [facility] - 2021 1:59 PM CDT ?Therapeutic Range 2.0-3.0 for most anticoagulated patients 2.5-3.5 or 4.0 for high risk patients Kush Doran MD LABORATORY Performing Organization Address City/State/ZIP Code Phon e Number [facility] [address] [place] [address] (ABNORMAL) CBC WITH AUTO DIFFERENTIAL (04/21/2022 10:50 AM CDT)Only the most recent of3 resultswithin the time period is included. [facility] Method Time Signature WHITE BLOOD 5.7 4.5 - 04/21/2022 [facility] COUNT 11.0 10:58 AM T [facility]/ CLINIC mm RED BLOOD COUNT 2.53 (L) 4.30 - 04/21/2022 [facility] 5.90 10:58 AM T [facility]/ mm CLINIC HEMOGLOBIN 8.5 (L) 13.5 - 04/21/2022 [facility] 17.5 g/dL 10:58 AM [facility] HEMATOCRIT 25.7 (L) 37.0 - 04/21/2022 [facility] 53.0 % 10:58 AM [facility] MCV 102 (H) 80 - 100 04/21/2022 [facility] fL 10:58 AM [facility] MCH 33.6 26.0 - 04/21/2022 [facility] 34.0 pg 10:58 AM [facility] MCHC 33.1 32.0 - 04/21/2022 [facility] 36.0 g/dL 10:58 AM [facility] RDW 13.0 11.5 - 04/21/2022 [facility] 15.5 % 10:58 AM [facility] PLATELET COUNT 178 140 - 440 04/21/2022 [facility]/cu 10:58 AM T [facility] MPV 8.3 6.5 - 04/21/2022 [facility] 11.0 fL 10:58 AM [facility] % NEUT 70.9 % 04/21/[address] [facility] 10:58 AM [facility] % LYMPH 11.6 % 04/21/2022 [facility] 10:58 AM [facility] % MONO 10.4 % 04/21/2022 [facility] 10:58 AM [facility] % EOS 6.7 % 04/21/2022 [facility] 10:58 AM [facility] % BASO 0.4 % 04/21/2022 [facility] 10:58 AM [facility] ABSOLUTE 4.0 1.7 - 7.0 04/21/2022 [facility] NEUTROPHILS thou/cu 10:58 AM CDT [facility] ABSOLUTE 0.7 (L) 0.9 - 2.9 04/21/2022 [facility] LYMPHOCYTES thou/cu 10:58 AM CDT [facility] ABSOLUTE 0.6 <0.9 04/21/2022 [facility] MONOCYTES thou/cu 10:58 AM CDT [facility] ABSOLUTE 0.4 <0.5 04/21/2022 [facility] EOSINOPHILS thou/cu 10:58 AM CDT [facility] ABSOLUTE 0.0 <0.3 04/21/2022 [facility] BASOPHILS thou/cu 10:58 AM CDT [facility] Specimen Anatomical Collection Method / Collection Time Recei thony Time (Source) Location / Volume Laterality Blood BLOOD SPECIMEN / Venipuncture / 04/21/2022 10:50 04/21 Unknown Unknown AM CDT 10:50 AM CDT Dieudonne Son MD HEMATOLOGY Performing Organization Address City/State/ZIP Code Phon e Number [facility] [address] [place] [address] SCAN CORRESP-EKG RESULTS (04/19/2022 6:24 AM CDT) [...] [facility] (UNSATURATED) 8:12 AM CDT [facility] IRON BINDING 232 (L) 245 - 400 04/16/2022 [facility] CAPACITY ug/dL 8:12 AM CDT [facility] IRON,% 7 (L) 20 - 55 % 04/16/2022 [facility] SATURATION 8:12 AM CDT [facility] Specimen Anatomical Collection Method / Collection Time Recei thony Time (Source) Location / Volume Laterality Blood BLOOD SPECIMEN / Venipuncture / 04/16/2022 6:37 2021 7:12 Unknown Unknown AM CDT AM CDT Spencer Tabares MD CHEMISTRY Performing Organization Address City/State/ZIP Code Phon e Number [facility] [address] [place] [address] CENTER VITAMIN B12 (04/16/2022 6:37 AM CDT) athologist Signature VITAMIN B12 333 093 - 794 04/18/2022 [facility] pg/mL 8:30 AM CDT [facility] Specimen Anatomical Collection Method / Collection Time Recei thony Time (Source) Location / Volume Laterality Blood BLOOD SPECIMEN / Venipuncture / 04/16/2022 6:37 2021 7:12 Unknown Unknown AM CDT AM CDT Spencer Tabares MD CHEMISTRY Performing Organization Address City/State/ZIP Code Phon e Number [facility] [address] [address] LABORATORY-CENTRAL 2000 LABORATORY SCAN CORRESP-IMAGING (04/16/2022 12:00 AM CDT) Narrative [...] 4 seconds Tai Ozuna MD PROCEDURE ORD FERRITIN (04/15/2022 5:18 AM CDT) athologist Signature FERRITIN 44.8 22.0 - 04/15/2022 [facility] 275.0 ng/mL 7:30 PM CDT [facility] Specimen Anatomical Collection Method / Collection Time Recei thony Time (Source) Location / Volume Laterality Blood BLOOD SPECIMEN / Venipuncture / 04/15/2022 5:18 2021 5:31 Unknown Unknown AM CDT AM CDT Spencer Tabares MD CHEMISTRY Performing Organization Address City/State/[place] [address] CENTER SCAN-CT INTERPRETATION (04/13/2022 12:00 AM CDT) Narrative This result has an attachment that is no t available. Scanner OTHER from Last 3 Months Insurance Payer Benefit Plan / Subscriber ID Effective Phone Address T ype Group Dates MEDICARE PART A - HB MEDICARE PART [id number] 2006-Prese ATTN: CLAIMS USE ONLY A HB ONLY nt [address] [place] [address] [facility] MR C MR [id number] 2022-Prese [address] [address] [place] [address] FOR [id number] 2014-Prese [address] [place] [address] [employer] [place] [id number] 2022-Pres [place] CC[place] O [employer] AD[employer]RATION ent [address] [place] [address] Advance Directives Documents on File Type Date Recorded Patient Cassandra Developer Explanati on Healthcare Directive 05/16/2018 3:06 PM [employer] DIRECTIVE, [employer], 09/14/2005 Latest Code Status on File Code Status Date Activated Date Inactivated Comments Full Code 05/13/2022 11:52 AM 05/14/2022 3:20 PM Code Status Discussion: Reviewed Preferences Full Code 04/14/2022 4:59 PM 04/16/2022 4:20 PM Code Status Discussion: Reviewed Preferences Full Code 08/16/2021 7:38 AM 08/16/2021 3:13 PM Code Status Discussion: Not Discussed Full Code 12/03/2020 10:19 AM 12/04/2020 4:19 PM Code Status Discussion: Not Discussed Full Code 09/30/2020 3:29 AM 10/01/2020 5:57 PM Code Status Discussion: Discussed 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
--- OUTSIDE RECORDS SUMMARY | 2022-06-14 06:19 | XMS_ITS | Encounter Summary ---
:1940 Author Organization [facility] Address [address] [place] [address] Care Team Providers Name Role Phone Elsewhere, Pcp Primary Care Provider Unavailable Reason for Referral Outpatient (Routine) - Authorized Specialty Diagnoses / Procedures Referred By Contact Refer red To Contact Diagnoses Maurice Diaz M.D., [facility] Procedures [place] Esophagram Single Contrast Ph.D. [address] [place] [address] Referral ID Status Reason Start Date Expiration Date Visits V isits Requested Authorized [id number] Authorized 06/07/2022 06/07/2023 1 1 utpatient (Routine) - Authorized Specialty Diagnoses / Procedures Referred By Contact Refer red To Contact Diagnoses Maurice Diaz M.D., [facility] Procedures EGD (EsophagoGastroDuodenoscopy) Restricted Ph.D. [address] [place], [place] [address] Referral ID Status Reason Start Date Expiration Date Visits V isits Requested Authorized [id number] Authorized 06/07/2022 06/07/2023 1 1 utpatient (Routine) - Authorized Specialty Diagnoses / Procedures Referred By Contact Refer red To Contact Diagnoses Maurice Diaz M.D., [facility] Procedures Esophageal Manometry Ph.D. [address] [place] [address] Referral ID Status Reason Start Date Expiration Date Visits V isits Requested Authorized [id number] Authorized 06/07/2022 06/07/2023 1 1 Encounter Details Date Type Department Care Team Description 06/07/2022 Clinical Communication Division of [facility], Gastroenterology in Maurice Mendes M.D., [place], [place] Ph.D. [address] [facility] [address] [place] [address] [place], [place] [phone] Social History Tobacco Use Types Packs/Day Years [...] How often do you attend mosque or tenriism More than 4 time s [...] Nutrition Ankita Smyth M.D., Ph.D. [address] [place] [phone] Ace Morris, JANY, LD [address] [place] [address] 06/20/2022 Comprehensive Visit Gastroenterology and [facility] Hepatology Maurice Mendes M.D., Ph.D. [address] [place] [phone] 06/22/2022 Appointment Radiology Maurice Smyth M.D., Ph.D. [address] [place] [phone] 07/12/2022 Clinical Communication Admitting/Central Scheduling 08/31/2022 Appointment Gastroenterology and [facility] Hepatology Maurice Mendes M.D., Ph.D. [address] [place] [phone] 09/01/2022 Appointment Gastroenterology and [facility] Hepatology Maurice Mendes M.D., Ph.D. [address] [place] [phone] 09/05/2022 Appointment Gastroenterology and [facility] Hepatology Maurice Mendes M.D., Ph.D. [address] [place] [phone] Scheduled Orders Name Type Priority Associated Diagnoses Order S chedule Esophageal Manometry GI Routine Achalasia Expecte d: 06/07/2022 (Approximate), Expires: 09/07/2023 EGD GI Routine Achalasia Expected: (EsophagoGastroDuode 022 noscopy) Restricted (Approxi mate), Expires: 09/07/2023 [place] Esophagram Single Imaging RAD - Routine (most Achalasia Expected: Contrast inpatients and all outpatients) (Approximate), Expires: 09/07/2023 documented as of this encounter Visit Diagnoses Diagnosis Achalasia - Primary documented in this encounter Care Teams 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
--- OUTSIDE RECORDS SUMMARY | 2022-06-14 06:20 | XMS_ITS | Encounter Summary ---
:1940 Author Organization [facility] Address [address] [place] [address] Care Team Providers Name Role Phone Unavailable Primary Care Provider Unavailable Reason for Referral Outpatient (Routine) - Closed Specialty Diagnoses / Procedures Referred By Contact Refer red To Contact Pulmonary Medicine Peng Tinajero M.D. [facility] [address] [place] [address] Referral ID Status Reason Start Date Expiration Date Visits Requ ested Visits Authorized [id number] Closed 12/28/2021 12/28/2022 1 1 Scheduling Instructions F/U pleural clinic. I am happy to see bu t if this doesn't work out he can be seen in pleural clinic. RI/CAT/PET Scan (Routine) - Closed Specialty Diagnoses / Procedures Referred By Contact Refer red To Contact Radiology Diagnoses Pneumonitis Due To Inhalation Of Food And Vomit (HCC) Peng Tinajero M.D. [facility] Procedures CT Chest without IV Contrast DE CT [facility] [address] [place], [place] [phone] Referral ID Status Reason Start Date Expiration Date Visits Requ ested Visits Authorized [id number] Closed 12/28/2021 12/28/2022 1 1 Encounter Details Date Type Department Care Team Description 12/28/2021 Orders Only Division of Pulmonary Peng Tinajero, Pneum onitis Due To Medicine in [place] Inhalation Of Food And [place] [address] [facility] Vomit (HCC) [address] [place] [phone] Social History Tobacco Use Types Packs/Day Years [...] How often do you attend latter-day or pentecostal More than 4 time s [...] Clinical Support Nutrition Ankita Smyth M.D., Ph.D. [address] [place] [phone] Ace Morris, JANY, LD [address] [place] [phone] 06/20/2022 Comprehensive Visit Gastroenterology and [facility] Hepat[facility] Maurice Mendes M.D., Ph.D. [address] [place] [phone] 06/22/2022 Appointment Radiology Maurice Smyth M.D., Ph.D. [address] [place] [phone] 07/12/2022 Clinical Communication Admitting/Central Scheduling 08/31/2022 Appointment Gastroenterology and [facility] Hepatology Maurice Mendes M.D., Ph.D. [address] [place] [phone] 09/01/2022 Appointment Gastroenterology and [facility] Hepattanya Mendes M.D., Ph.D. [address] [place] [phone] 09/05/2022 Appointment Gastroenterology and [facility] Hepattanya Mendes M.D., Ph.D. [address] [place] [phone] Scheduled Referrals Name Type Priority Associated Diagnoses Order S [facility] Pulmonary Medicine Outpatient Referral Routine Ex pected: [...]
--- OUTSIDE RECORDS SUMMARY | 2022-06-14 06:20 | XMS_ITS | Encounter Summary ---
:1940 Author Organization [facility] Address [address] [place] [address] Care Team Providers Name Role Phone Unavailable Primary Care Provider Unavailable Reason for Referral Outpatient (Routine) - Authorized Specialty Diagnoses / Procedures Referred By Contact Refer red To Contact Diagnoses Effusion Pericardial Acute (HCC) Chronic Systolic (Congestive) Heart Failure (HCC) Atrial Fibrillation Paroxysmal (HCC) Bundle Branch Block Left Dialysis Peritoneal Status (HCC) [facility] Procedures ECG Heart rhythm monitor (Holter) C.N.P. [address] [place] [address] Referral ID Status Reason Start Date Expiration Date Visits V isits Requested Authorized [id number] Authorized 03/08/2022 03/08/2023 1 1 Reason for Visit Reason Comments Triage Encounter Details Date Type Department Care Team Description 03/02/2022 Clinical Communication Department of Counseling Specialist, [facility] Cardiovascular Medicine Trinh Alcaraz in [facility] micro paleontologist [address] [place] [phone] Social History Tobacco Use Types Packs/Day [...] How often do you attend lutheran or hindu More than 4 time s per year 04/11/2022 services? Do you belong to any clubs or organizations Yes 04/11/2022 such as lutheran groups, unions, fraAnipipo or athletic groups, or school groups? How [...] and holter very appropriate. Thank you, Mehrdad Lazcano, HARDWARE DEVELOPER Telephone Encounter - Tana Ren R.N. - [...] ESRD, on dialysis Achalasia s/p Heller Myotomy EELNI HTN Anxiety Prediabetes Testing/Consultations: ECG Echo OSMR: [...] Support Nutrition Ankita Smyth M.D., Ph.D. [address] [place] [phone] Ace Morris, JANY, [address] [phone] 06/20/2022 Comprehensive Visit Gastroenterology and [facility], Hepatology Maurice Mendes M.D., Ph.D. [address] [place] [phone] 06/22/2022 Appointment Radiology Maurice Smyth M.D., Ph.D. [address] [place] [phone] 07/12/2022 Clinical Communication Admitting/Central Scheduling 08/31/2022 Appointment Gastroenterology and [facility] Hepatology Maurice Mendes M.D., Ph.D. [address] [place] [phone] 09/01/2022 Appointment Gastroenterology and [facility] Hepat[facility] Maurice Mendes M.D., Ph.D. [address] [place] [phone] 09/05/2022 Appointment Gastroenterology and [facility] Hepat[facility] Maurice Mendes M.D., Ph.D. [address] [place] [phone] documented as of this encounter Results HOLTER MONITOR - IN CLINIC INVENTORY CONTROLLER (04/05/2022 6:00 AM CDT) P athologist [...] Duration 6h 30m duration INFOBIONIC MOME AF [place] 29 percent INFOBIONIC MOME Longest AF 7h [...] seen singly at and around these times. Helicopter Pilot Instructor: Marilou Zimmer / Violet Cotton Fellow: Clemente [...] seen singly at and around these times. Helicopter Pilot Instructor: Marilou Zimmer Kelli Fellow: Clemente Dos Santos MD Mehrdad Lazcano APRN, C.N.P. CV CARDIAC SERVICES PRO CEDURES Performing Organization Address City/State/ZIP Code Phon e Number INFOBIONIC MOME INFOBIONIC MOME NA (ABNORMAL) Sedimentation Rate (04/04/2022 11:36 AM CDT) [facility] Method Time Signature Sedimentation 61 (H) [...] e Number [facility] - [address] [place] [address] [facility] [place] [address] Laboratories-[facility] 200 [facility] (ABNORMAL) CBC with Differential, Blood (04/04/2022 11:36 AM CDT) [facility] Method Time Signature Hemoglobin 11.7 (L) 13.2 [...] C.N.P. LAB BLOOD ADD-ON Performing Organization Address City/[facility] Phon e Number [address] (ABNORMAL) CRP (C-Reactive Protein) (04/04/2022 11:35 AM CDT) P athologist Signature C-Reactive 16.2 (H) <=8.0 mg/L 04/04/2022 DTL Protein (CRP), 1:55 PM CDT S Specimen Anatomical Collection Method Collection Time Receive d Time (Source) Location / / Volume Laterality Blood (Blood, 04/04/2022 11:35 04/04/2022 Venous) AM CDT 12:06 PM CDT Mehrdad Lazcano APRN, C.N.P. LAB BLOOD ADD-ON Performing Organization Address City/[facility] Phon e Number [address] (ABNORMAL) NT-Pro B-Type Natriuretic Peptide (BNP) [...] [facility] - [address] [place], [place] [address] [facility] [place] [place] [address] [facility] [address] (ABNORMAL) Comprehensive [...] 04/04/2022 DTL Black/ mL/min/BSA 1:48 PM CDT Gibraltarian Comment: ----ADDITIONAL INFORMATION---- Estimated GFR calculated using [...] [facility] [address] [place], [place] [address] [facility] [place] [address] [facility] [address] documented [...]
--- OUTSIDE RECORDS SUMMARY | 2022-06-14 06:20 | XMS_ITS | Encounter Summary ---
:1940 Author Organization [facility] Address [address] [place] [phone] Care Team Providers Name Role Phone Unavailable Primary Care Provider Unavailable Reason for Visit Reason Comments Pre-visit Intake Encounter Details Date Type Department Care Team Description 04/12/2022 Clinical Communication Visit Review in Pr e-visit Intake [place] [address] [place] [address] Social History Tobacco Use Types [...] How often do you attend moravian or gnosticist More than 4 time s [...] Support Nutrition Ankita Smyth M.D., Ph.D. [address] [place] [phone] Ace Morris, ALONAN, LD [address] [place] [phone] 06/20/2022 Comprehensive Visit Gastroenterology and [facility]at[facility] Maurice Mendes M.D., Ph.D. [address] [place] [phone] 06/22/2022 Appointment Radiology Maurice Smyth M.D., Ph.D. [address] [place] [phone] 07/12/2022 Clinical Communication Admitting/Central Scheduling 08/31/2022 Appointment Gastroenterology and [facility] Maurice Mendes M.D., Ph.D. [address] [place] [phone] 09/01/2022 Appointment Gastroenterology and [facility] Hepattanya Mendes M.D., Ph.D. [address] [place] [phone] 09/05/2022 Appointment Gastroenterology and [facility] Maurice Mendes M.D., Ph.D. [address] [place] [phone] documented as of this encounter Visit Diagnoses Not on filedocumented in this encounter
--- OUTSIDE RECORDS SUMMARY | 2022-06-14 06:20 | XMS_ITS | Encounter Summary ---
:1940 Author Organization [facility] Address [address] [place] [address] Care Team Providers Name Role Phone Elsewhere, Pcp Primary Care Provider Unavailable Reason for Visit Reason Comments GI Bleeding Auth/Cert Specialty Diagnoses / Procedures Referred By Contact Refer red To Contact Diagnoses Hemorrhage Gastrointestinal coffee ground emesis Procedures ADMIT TO INPATIENT Referral ID Status Reason Start Date Expiration Date Visits Requ ested Visits Authorized [id number] 1 1 Encounter Details Date Type Department Care Team Description 06/05/2022 - Hospital Encounter [facility] Ari Botello M.D. [address] [place] [address] Hemorrhage 06/07/2022 [facility], Lyndsey Garner M.D. [address] [place] [address] [facility], (Primary Dx) [facility], Sixth Floor [address] [place] [id number] Social History Tobacco Use Types Packs/Day Years [...] How often do you attend restoration or yazidism More than 4 time s [...] Mass Index 24.2 06/06/2022 2:50 PM CDT documented in this encounter Discharge Summaries Amarilis Weir - 06/07/2022 1:48 PM CDT DISCHARGE SUMMARY BRIEF OVERVIEW Hospital: [facility] Discharge Provider: Lyndsey Haque M.D. Primary Care Provider at Discharge: Primary Care Providers: Elsewhere, Pcp (General) No address on file Primary Care Provider Phone Number: None Primary Care Provider Fax Number: None Other Providers: None Primary Team: [facility] Gastroenterology A Admission Date: 06/05/2022 Discharge Date: 06/07/2022 PRINCIPAL DIAGNOSIS Hemorrhage Gastrointestinal DISCHARGE DISPOSITION Home or Self Care [1] ACTIVE ISSUES REQUIRING FOLLOW UP -followup with a nerve specialist to help come up with a diet plan to address his malnutrition in the setting of achalasia -follow up with esophagus clinic to conduct further testing into achalasia -follow up with nephrology outpatient for dialysis OUTPATIENT FOLLOW UP Scheduled Appointments 06/16/2022 9:00 AM Ace Morris, JANY, GRACIELA Nutrition 06/20/2022 8:00 AM [facility] 01 [facility] Gastroenterology and Hepatology 07/12/2022 2:00 PM [facility] INTAKE VISIT POD B 02 Admitting/Central Scheduling For appointment details refer to your Patient Appointment Guide. TEST RESULTS PENDING AT DISCHARGE Pending Labs Order Current Status Surgical Pathology In process DETAILS OF HOSPITAL STAY REASON FOR ADMISSION Hemorrhage Gastrointestinal HOSPITAL COURSE Mr. David Castro is a 81 y.o. male who was admitted to the [facility] Gastroenterology A for evaluation and management of Hemorrhage Gastrointestinal. His medical comorbidities include ESRD on nightly peritoneal dialysis, paroxysmal atrial fibrillation, HTN, ELENI, longstanding achalasia (s/p Heller my otomy 2020 x20 without partial fundoplication) with esophageal failure complicated by recurrent aspiration pneumonia and esophageal stasis ulcers. The patient presented with coffee-ground emesis consistent with upper GI bleed. Patient has history of recurrent upper GI bleeds secondary to esophageal ulcers, which represents most likely source of current bleed. On admission, patient was initiated on IV pantoprazole. EGD 06/06showed - Features of achalasia including aperistalsis and dilated esophagus. No significant resistance traversing the lower esophageal sphincter. - Severe chronic esophagitis with bleeding. Findings can secondary to stasis and/or gastroesophageal reflux. Biopsied Sucralfate was initiated. We consulted nephrology for management of peritoneal dialysis and patient received dialysis on 06/07. Hemoglobin levels were stable. He tolerated blenderized full liquid diet well. He was discharged on 06/07 with arrangements to go to esophagus clinic to pursue further workup of the dysmotility and esophagitis. CONSULTS ORDERED DURING THIS ADMISSION IP CONSULT TO NEPHROLOGY IP CONSULT TO DIETITIAN Procedures Performed : endoscopy Leukocytes Date Value Ref Range Status 06/07/2022 5.1 3.4 - 9.6 x10(9)/L Final Erythrocytes Date Value Ref Range Status 06/07/2022 3.24 (L) 4.35 - 5.65 x10(12)/L Final Hemoglobin Date Value Ref Range Status 06/07/2022 10.3 (L) 13.2 - 16.6 g/dL Final Platelet Count Date Value Ref Range Status 06/07/2022 113 (L) 135 - 317 x10(9)/L Final BUN (Blood Urea Nitrogen), S Date Value Ref Range Status 06/07/2022 34 (H) 8 - 24 mg/dL Final Creatinine Date Value Ref Range Status 06/07/2022 3.64 (H) 0.74 - 1.35 mg/dL Final Glucose, S Date Value Ref Range Status 06/07/2022 122 70 - 140 mg/dL Final INR Date Value Ref Range Status 06/06/2022 1.1 0.9 - 1.1 Final Comment: ----ADDITIONAL INFORMATION---- Standard intensity warfarin therapeutic range: 2.0 to 3.0 High intensity warfarin therapeutic range: 2.5 to 3.5 CONDITION AT DISCHARGE improved Discharge instructions were provided to the patient and caregiver(s). documented in this encounter Discharge Instructions Discharge InstructionsHarish Almaraz - 06/06/2022 7:30 AM CDT You were discharged from the [facility] G[facility]enterology [facility] Service. Please identify this service name if you call with questions after hospitalization. AttachmentsThe following attachments cannot be sent through Care Everywhere. Ondansetron (By mouth, Into the mouth) (Swedish)Sucralfate (By mouth) (Swedish) documented in this encounter Medications at Time of Discharge Medication Sig Dispensed Refills Start Date End Date allopurinol (ZYLOPRIM) 100 Take 100 mg by 0 11/09 mg tablet mouth every morning. amoxicillin (AMOXIL) 500 Take 4 capsules by 0 05/2022 mg capsule mouth once as needed (Dental procedures). calcitRIOL (ROCALTROL) Take 1 capsule by 0 2018 0.25 mcg capsule mouth 3 (three) times a week. Monday, Monday, Monday docusate sodium (COLACE) Take 100 mg by 0 100 mg capsule mouth daily. gentamicin (GARAMYCIN) 0.1 APPLY TO EXIT SITE 0 1 % cream DAILY metoprolol tartrate Take 12.5 mg by 0 (LOPRESSOR) 25 mg tablet mouth 2 (two) times a day. multivitamin renal failure Take 1 tablet by 30 tablet 0 (DIALYVITE) 100-1 mg mouth daily with tablet dinner. ondansetron ODT Dissolve 1 tablet 20 tablet 0 06/07/2022 (ZOFRAN-ODT) 4 mg (4 mg total) in the disintegrating tablet mouth every 6 (six) hours as needed for nausea or vomiting. pantoprazole (PROTONIX) 40 Take 40 mg by mouth 0 06/04/2022 mg EC tablet every morning before breakfast. sucralfate (CARAFATE) 100 Take 10 mL (1 g 1200 mL 0 06/0706/07/2023 mg/mL suspension total) by mouth every 6 (six) hours. torsemide (DEMADEX) 20 mg Take 1 tablet (20 0 tablet mg total) by mouth daily. documented as of this encounter Progress Notes Nicole Marley, DWIGHT, C.N.P., D.N.P. - 06/07/2022 3:17 PM CDT NEPHROLOGY [facility] CONSULT SERVICE - PROGRESS NOTE Hospital Day 2 SUBJECTIVE I saw Mr. Castro in his room this morning. He has some alarms from his peritoneal dialysis machine last night and it was annoying for him. He did not ultrafiltrate very well last night total UF from the cycler is charted is 8 mL. OBJECTIVE Admission weight: 71.4 kg (per Careeverywhere on 06/05/22) Weights for the past 120 hrs (Last 3 readings): Weight 06/06/22 1554 71.6 kg 06/06/22 1447 71.4 kg I/O 06/06 0000 06/06 23506/07 0000 06/07 2359 P.O. 710 Other 0 Crystalloid Bolus 3 Maintenance IV 600 Continuous Medications 24.2 Total Intake(mL/kg) 1334.2 (18.6) 3 (0) Urine (mL/kg/hr) 400 (0.2) 150 (0.1) Blood 0 Dialysis 47 13 Total Output 447 163 Net +887.2 -160 Unmeasured Urine Occurrence 1 x VITAL SIGNS Temperature: [36.2 ??C-36.8 ??C] 36.4 ??C Heart Rate: [62-83] 63 Resp Rate: [10-17] 14 Blood Pressure: (104-118)/(51-59) 109/53 SpO2: [94 %-99 %] 94 % Pulse Rate: [61-82] 82 PHYSICAL EXAM Constitutional General: He is not in acute distress. Cardiovascular Rate and Rhythm: Normal rate and regular rhythm. Heart sounds: No murmur heard. Pulmonary Effort: Pulmonary effort is normal. Breath sounds: Normal breath sounds. Abdominal Palpations: Abdomen is soft. Comments: Peritoneal dialysis exit site without any redness or drainage. Musculoskeletal Right lower leg: No edema. Left lower leg: No edema. Neurological Mental Status: He is alert and oriented to person, place, and time. Psychiatric Attention and Perception: Attention normal. Mood and Affect: Mood normal. Speech: Speech normal. Behavior: Behavior normal. Behavior is cooperative. Thought Content: Thought content normal. 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 His peritoneal dialysis could gone of gone a little better as he is used to having a 300 mL ultrafiltration each evening. He had an EGD yesterday which demonstrated no significant resistance traversing the lower esophageal sphincter. He has chronic severe esophagitis with bleeding.This was biopsied and the histology is pending. I saw and examined him in his room this morning. He is to continue on pantoprazole 40 mg orally twice daily. The GI team would also like him to take his care fate 1 g dissolve in 50 mL of water orally 4 times a day. 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 I have reviewed this withthe Nephrology be fellow and it has been reviewed with the independent marketing consultant. From our standpoint we would be okay with the sucralfate short term. I will call his product safety officer in the [facility]. I have reviewed his discharge medications. For questions or concerns, please contact the Nephrology [facility] service at [phone]. Lyndsey Haque M.D. - 06/07/2022 11:16 AM CDT Inpatient Progress Note 06/07/2022 Subjective: This is a supervisory note for Amarilis Weir. I have reviewed the available records, interviewed and examined the patient with the GI team. I agree with the history, physical examination, and plan asoutlined in Amarilis Weir's note dated today. Clinically doing well, hemoglobin is stable, tolerating oral intake, no further nausea or emesis. EGD yesterday demonstrated no significant resistance traversing the lower esophageal sphincter. He has chronic severe esophagitis with bleeding. This was biopsied and histology is pending. Objective: Temperature: [36.2 ??C-36.8 ??C] 36.4 ??C Heart Rate: [62-83] 63 Resp Rate: [10-26] 10 Blood Pressure: (104-118)/(51-68) 109/53 SpO2: [96 %-100 %] 97 % Pulse Rate: [61-81] 67 Physical Exam: General: Alert and oriented, not in any acute distress Abdomen: Soft, non distended, non tender Assessment / Plan: #1 Achalasia status post surgical myotomy #2 Coffee-ground emesis, secondary to #3 #3 Severe chronic esophagitis, histology pending #4 End-stage renal disease, maintained on peritoneal dialysis 1. Continue pantoprazole 40 mg b.i.d. 2. Sucralfate tablet 1 g dissolved in 50 cc of water p.o. q.i.d. 3. Referral to esophagus Clinic, pre schedule esophageal manometry, upper endoscopy with endo flip, esophagram with barium tablet and ambulatory pH impedance. 4. Outpatient Nutrition Clinic consultation. 5. Continue with peritoneal dialysis schedule 6. He has concerns regarding long-term sucralfate use in the background of kidney disease. We will arrange for an outpatient nephrology consultation to facilitate a multidisciplinary discussion with the esophagus Clinic colleagues as his therapeutic options to treat severe esophagitis are somewhat limited in the absence of definitive management of achalasia. 7. Follow-up esophageal biopsy results. 8. Hospital discharge later today. Matt Munoz C.R.T., L.R.T. - 06/07/2022 1:34 AM CDT 06/06/22 7933 BPAP/CPAP Therapy BPAP/CPAP Interface Full face mask BPAP/CPAP Interface Size Medium Skin barrier Liquid-filled membrane $BPAP/CPAP Yes Ventilator Parameters BPAP/CPAP Mode Per Home Settings;CPAP NPPV EPAP (CPAP) Setting 13 cm H2O Humidification Heated humidifier Pt placed on PAP for night, RT will continue to assist as needed. Electronically signed by: Matt Munoz C.R.T., L.R.T. 06/07/22 1:34 AM CDT Diana Reed, ALONAN, LD - 06/06/2022 2:52 PM CDT Clinical Nutrition: Initial Assessment Clinical Nutrition was requested to evaluate patient for positive nursing baseline nutrition screen with a MST score of 2 or greater SUBJECTIVE Mr. Castro is a 81 y.o. male admitted for coffee-ground emesis. Patient has been NPO for EGD today. Nutrition related medical/surgical history: end-stage renal disease on peritoneal dialysis, paroxysmal atrial fibrillation, longstanding achalasia status post Heller myotomy in 2020, complicated by chronically dilated esophagus with stasis ulcers Completed visit with patient and family today as part of face to face care. Nutrition history: Patient and share patient has been following a liquid diet since November. He has been eating blenderized 1 - 8 oz cup of soup x 3 meals per day with the addition of liquid proteinto 1 soup daily which provides and additional 15 gm protein. prepares soup from scratch making with whole milk, vegetables and well browned turk angelito and liquifying with video game animator. He also consumes ice cream/ice cream bar, popsicles(4-5 per day) and water. Patient no longer uses LiquaCel protein supplement. Patient commented he has had no recent change in appetite or volume of food eaten. Nutrition education/counseling: Patient received full liquid diet education on 12/12/21. OBJECTIVE Current nutrition orders: Current Diet Adult Diet Full Liquid starting at 06/06 1511 Medications: Calcitriol, Dialyvite Anthropometrics: Height: 172 cm Admission Weight: 71.4 kg (06/05/2022) Estimated Dry Weight: 72.5 kg (per EMR) BMI (Calculated): 24.1 kg/m?? Wt Readings from Last 6 Encounters: 06/06/22 71.4 kg 03/02/22 78.5 kg 12/09/21 74.9 kg 12/07/21 79 kg 02/25/19 85.3 kg 02/14/19 87.6 kg Weight history: Per review of weight history, patient has lost 6% weight since 6 month. Weight is difficult to assess in setting of ESRD with dialysis. Estimated Needs: Total Calorie Needs: 1700 calories/day Method to Estimate Energy Needs: Marc-Salisbury (Basal + 20%) Weight Used for Equation Calculations: 72.5 kg Total Protein Needs: 71 - 86 grams/day (Method to Estimate Protein Needs (g/kg): 1 - 1.2 gm/kg) Weight Used to Calculate Protein Needs (Kg): 71.4 kg Nutrition Diagnosis: Predicted suboptimal nutrient intake related to achalasia and need for liquid diet as evidenced by review of diet history with patient and , 6% weight loss over the past 6 months and evidence of muscle loss. Malnutrition Criteria: Average estimated Intake: No Change (Patient likely meets his estimated calorie goal with daily intake but likely deficient in protein in setting of modified diet.) Weight Loss: (6% loss over the past 6 months.) Body Fat: Normal Muscle Mass: Mild Loss Nutritional Status: Non-severe (moderate) Malnutrition Malnutrition in the Context of: Chronic Illness ASSESSMENT / PLAN Patient meets ASPEN/AND criteria for Non-severe (moderate) Malnutrition (06/06/2022 2:57 PM) See Nutrition Focused Physical Findings section for details. Nutrition Intervention: Interventions: Medical food supplement, Vitamin and mineral supplements, Provide counseling strategies to apply nutrition knowledge, Increase nutrient intake with small, frequent meals and/or snacks, Assess oral intake with calorie count. Recommendations: When ready to advance, order blenderized full liquid diet. Monitoring/Evaluation: Nutrition parameter to monitor: Diet Progression/NPO Status, Meals/Supplement Intake, Weight Status,Pertinent Labs, Chewing/Swallowing Desired Outcome: Optimize nutrition status Patient Goal(s): 1. Patient to eat 75% or more of 3 meals plus the addition of protein powder with soup at each meal and snacks. For questions about patient's nutritional care please contact pager [phone] on weekdays or [phone] on weekends/holidays. Monica Raya, Pharm.D., R.Ph. - 06/06/2022 8:54 AM CDT Images from the original note were not included. Pharmacist Progress Note Reason for admission: Coffee ground emesis - multiple episodes in the past 6 months. Most recent 05/12 showing grade D esophagitis without bleeding and hematin in the entire examined stomach. Warfarin was stopped at this time. PMH: ESRD on nightly peritoneal dialysis, paroxysmal atrial fibrillation, HTN, HFpEF (66% 03/2022), Gout, ELENI, longstanding achalasia (s/p Heller myotomy 2020) with esophageal failure complicated by recurrent aspiration pneumonia and esophageal stasis ulcers. OBJECTIVE Home medications: Held: PRNs, docusate, gentamicin cream, torsemide Changed: Protonix to IV BID Prophylaxis: Held Admission Medication History Adherence issues: Unable to assess Medication list source: Patient Medication related information: Patient recently stopped sucralfate prior to admission. Patient's last dose of warfarin was ~ 2 weeks ago. Before stopping he reports taking 1 mg on Mon, Mon, , and 2 mg all other days of the week. He has an appointment with his upholstery restorer on Monday to discuss warfarin resumption. Prior to Admission Medications Med List Status: Pharmacy Complete Set By: Monica Raya Pharm.DBailey, R.Ph. at 06/06/2022 8:51 AM Taking? Last Dose Informant Start Date End Date LT allopurinol (ZYLOPRIM) 100 mg tablet 06/05/2022 -- 11/09/18 -- Take 100 mg by mouth every morning. amoxicillin (AMOXIL) 500 mg capsule -- -- 05/30/22 -- Take 4 capsules by mouth once as needed (Dental procedures). calcitRIOL (ROCALTROL) 0.25 mcg capsule Past Week -- 12/27/18 -- Take 1 capsule by mouth 3 (three) times a week. Monday, Monday, Monday docusate sodium (COLACE) 100 mg capsule -- -- -- -- Take 100 mg by mouth daily. gentamicin (GARAMYCIN) 0.1 % cream -- -- 06/01/22 -- APPLY TO EXIT SITE DAILY metoprolol tartrate (LOPRESSOR) 25 mg tablet 06/05/2022 -- -- -- Take 12.5 mg by mouth 2 (two) times a day. multivitamin renal failure (DIALYVITE) 100-1 mg tablet 06/05/2022 -- 12/08/21 -- Take 1 tablet by mouth daily with dinner. pantoprazole (PROTONIX) 40 mg EC tablet -- -- 06/04/22 -- Take 40 mg by mouth every morning before breakfast. torsemide (DEMADEX) 20 mg tablet 06/05/2022 -- 12/12/21 -- Take 1 tablet (20 mg total) by mouth daily. ASSESSMENT / PLAN Home medications - reviewed with patient and resumed appropriately. See above for list. Upper GI bleed - Protonix changed to IV 40 mg BID. NPO for EGD today. ESRD on PD - Nephrology consulted. Lytes WNL, bicarb 30. Continues home calcitriol 0.25 mcg three times/week. Torsemide held. Paroxysmal Afib - warfarin held x 2 weeks. INR 1.1 on admission. Continues home metoprolol tartrate 12.5 mg BID. Patient reports he has an appointment with his upholstery restorer Monday to discuss warfarin plans. Monica Raya Pharm.D., R.Ph. documented in this encounter H&P Notes Lyndsey Haque M.D. - 06/06/2022 1:02 PM CDT Hospital Admission Note 06/06/2022 Chief Complaint: Coffee-ground emesis History of Present Illness This is a supervisory note for Lorrie Bo M.D.. I have reviewed the available records, interviewed and examined the patient with the GI team residents and fellow Maurice Smyth M.D., Ph.D.. I agree with the history, physical examination, and plan as outlined in Lorrie Bo M.D.'s note dated today. Briefly, Mr. Castro is a 81-year-old male with end-stage renal disease on peritoneal dialysis, paroxysmal atrial fibrillation, longstanding achalasia status post Heller myotomy in 2020, complicated bychronically dilated esophagus with stasis ulcers. He was admitted to our service after being transferred to [facility] from outside hospital for coffee-ground emesis. Currently denies any abdominal pain or discomfort. He has had no further emesis since arrival to our hospital. His hemoglobin is 11 which is close to his baseline. Upon reviewing his past medical history, in 2018 he underwent an EGD with endo flip. A 20 mm balloonwas pulled through the GE junction with very minimal resistance. He was seen by Dr. Werner in esophagus Clinic and dietary modification was recommended as the eating difficulties were likely related to dysmotility. Earlier this year who was admitted with coffee-ground emesis in November 2021 an EGD at that time showed no active bleeding but did demonstrate a severely dilated esophagus with superficial stasis ulceration friability and oozing with irrigation which was presumed to be the likely source ofbleeding in the setting of anticoagulation. His oral intake is limited largely to liquids. His clinical course has been complicated by multiple episodes of aspiration pneumonia. ROS: Negative except for pertinent findings mentioned in HPI. Past medical and surgical history, allergies, medication list, social and family history reviewed. Objective: Temperature: [36.4 ??C-36.6 ??C] 36.6 ??C Heart Rate: [64-97] 64 Resp Rate: [10-23] 13 Blood Pressure: (104-124)/(62-84) 109/62 SpO2: [93 %-98 %] 97 % Pulse Rate: [64-90] 64 Physical Exam: General: Alert and oriented, not in any acute distress Abdomen: Soft nontender nondistended. Assessment / Plan: #1 Coffee-ground emesis, likely secondary to esophageal stasis ulcers #2 Achalasia, index surgical myotomy in 1968, status post Heller myotomy in 2020 at outside hospital #3 End-stage renal disease on peritoneal dialysis #4 Atrial fibrillation on chronic anticoagulation This is a difficult situation. We will proceed with EGD for diagnostic evaluation to identify the bleeding source and achieve hemostasis if possible. He does not need a blood transfusion at this time. If the bleeding source is in the esophagus and related to stasis ulceration therapeutic options are limited. PPI therapy is unlikely to be of benefit. His diet is already significantly modified and primarily liquids. We can continue with oral sucralfate. Once this acute presentation has been managed and he is ready for hospital discharge he will benefit from outpatient follow-up in Esophagus Clinic todetermine therapeutic options for management of his chronically dilated esophagus and they may consider pneumatic dilation in an attempt to improve esophageal stasis in this case. He questioned the eventual need for placement of a feeding tube. It is not necessarily something we need to do during thishospitalization. However a careful assessment of his nutritional status and oral intake is relevant to the overall management of his problem. If he stays in the hospital overnight tonight we will resume his peritoneal dialysis. Lorrie Bo M.D. - 06/05/2022 11:22 PM CDT [facility] Gastroenterology A Admission Note SUBJECTIVE CHIEF COMPLAINT Coffee ground emesis HISTORY OF PRESENT ILLNESS Mr. David Castro is a 81 y.o. male with medical comorbidities including ESRD on nightly peritoneal dialysis, paroxysmal atrial fibrillation, HTN, ELENI, longstanding achalasia (s/p Heller myotomy 2020) with esophageal failure complicated by recurrent aspiration pneumonia and esophageal stasis ulcers. He was transferred to the [facility] ED from OSH for coffee ground emesis. The patient has a longstanding history of achalasia status post myotomy in 1968 and again in 2020, complicated by esophageal failure with recurrent aspiration pneumonia. He has been admitted to an OSH for several episodes of coffee ground emesis in the past 6 months. His 1st episode was in 12/10, at which time EGD revealed severe dilation of the esophagus consistent with achalasia, and stasis ulcers with friable mucosa noted to be oozing blood with lavage. He was started on twice daily PPI and sucralfate at the time which were later stopped by his product safety officer. He then had another episode of coffeeground emesis 04/11 for which he underwent EGD that showed esophageal ulcer oozing blood. A clip wasplaced and he was started on sucralfate. Most recent episode occurred 05/12, when EGD showed grade Desophagitis without bleeding in the lower 3rd of the esophagus and hematin in the entire examined stomach. The patient was discharged on pantoprazole 40 mg daily and sucralfate 1 g p.o. q.i.d, and was recommended to stop his warfarin for his a fib. His sucralfate was stopped by his product safety officer a few days ago. The patient began having multiple episodes of coffee-ground emesis yesterday. He then presented to the [facility] ED, where he was tachycardic with HR 107 but was otherwise was stable on presentation. Labs were remarkable for hemoglobin 13.8, WBC 8.48, INR 1, Na 140, K 3.9, Cl 97, HCO3 35. CT abdomen did not show an acute bleed but did note patulous fluid in the esophagus. Due to lack of capacity foradmission, he was transferred to [facility] ED. On arrival to [facility], he was hemodynamically stable. Labs wereremarkable for hemoglobin 12.2. He continued to have coffee-ground emesis in the ED. He was then admitted to [facility] for further management. On arrival to the floor, he was hemodynamically stable. He reports his symptoms are identical to past episodes of bleeding from his esophageal ulcers. He endorses nausea but denied dizziness, fevers, chills, chest pain, shortness of breath, abdominal pain, hematochezia, or melena. He has not taken hiswarfarin since his last hospitalization. Patient usually subsists on a liquid diet I have reviewed and updated the following: Past Medical History, Family History, Social History, andAllergies. Current Outpatient Medications on File Prior to Encounter: allopurinol (ZYLOPRIM) 100 mg tablet, Take 100 mg by mouth daily. calcitRIOL (ROCALTROL) 0.25 mcg capsule, 1 capsule. 3 times weekly metoprolol tartrate (LOPRESSOR) 25 mg tablet, Take 25 mg by mouth 2 (two) times a day. multivitamin renal failure (DIALYVITE) 100-1 mg tablet, Take 1 tablet by mouth daily with dinner. omeprazole (PriLOSEC) [address] capsule, Take 1 capsule (20 mg total) by mouth 2 (two) times a day before breakfast and dinner. torsemide (DEMADEX) 20 mg tablet, Take 1 tablet (20 mg total) by mouth daily. warfarin (COUMADIN) 2 mg tablet, 1 mg on //Mon and 2 mg on ///Mon. REVIEW OF SYSTEMS Pertinent items are noted in HPI; all other review of systems was negative. OBJECTIVE VITAL SIGNS Heart Rate: [90-97] 90 Resp Rate: [14-19] 17 Blood Pressure: (112-124)/(67-84) 112/70 SpO2: [97 %-98 %] 97 % Pulse Rate: [85-88] 86 PHYSICAL EXAM General: Alert, interactive, not acutely ill. Skin: No rashes or lesions. Eyes: Pupils equal and round. Sclera anicteric. ENT: Hearing grossly intact. Dentition intact. No oral or pharyngeal erythema or lesions noted. Lungs: Clear to auscultation. No wheezes or crackles. Heart: Regular rate and rhythm. No murmurs appreciated. No lower extremity edema. Abdomen: Soft, flat, bowel sounds normoactive, nontender, nondistended, no palpable masses or organomegaly. Neuro: Cranial nerves grossly intact. Able to move all extremities against gravity. Mental: Mood and affect congruent. Alert and oriented. Attention intact. No evidence of disorganizedthinking. Reliable history cuff setter overlock. DIAGNOSTICS I have reviewed the labs and diagnostics from admission. ASSESSMENT / PLAN Mr. David Castro is a 81 y.o. male with medical comorbidities including ESRD on nightly peritoneal dialysis, paroxysmal atrial fibrillation, HTN, ELENI, longstanding achalasia (s/p Heller myotomy 2020) with esophageal failure complicated by recurrent aspiration pneumonia and esophageal stasis ulcers. He is hospitalized on [facility] for evaluation and management of Hemorrhage Gastrointestinal. The patient presented with coffee-ground emesis consistent with upper GI bleed. Patient has history of recurrent upper GI bleeds secondary to esophageal ulcers, which represents most likely source of current bleed. Will start patient on IV pantoprazole b.i.d. and keep NPO overnight with plan for EGD as soon as able. Consulted nephrology for management of peritoneal dialysis and pre-procedure PD recs.Electrolytes are stable and patient is not fluid overloaded, so will plan for PD tomorrow during theday. # Hemorrhage Gastrointestinal # History of esophageal stasis ulcers # Achalasia, status post surgical myotomy x2 most recently November 2020 # Esophageal dysmotility and a peristalsis - IV pantoprazole 40 mg b.i.d. - NPO at midnight - EGD tomorrow # Atrial fibrillation # Hypertension - continue home metoprolol 25 mg BID # ESRD on peritoneal dialysis - Nephrology consult for PD - dialyvite daily, calcitriol MWF - hold home torsemide in setting of GI bleed # ELENI - home CPAP # Gout - home allopurinol 100 mg daily Baseline Mobility: BMAT Level 4 (Able to stand and walk) Diet: NPO diet Tubes/lines: PIV VTE prophylaxis: none Code status: Prior Surrogate Decision Maker: Spouse, Cynthia Disposition: Home Please page the [facility] service pager at [phone] with any questions. Lorrie Bo MD Internal Medicine PGY-2 documented in this encounter Consult Notes Yodit Pickard APRN, C.N.P., M.S.N. - 06/06/2022 11:27 AM CDTAssociated Order(s): Nephrology consult (hospital) NEPHROLOGY CONSULT SERVICE - CONSULT NOTE Hospital Day 1 SUBJECTIVE Nephrology consult (hospital) Referring Provider: Lorrie Bo M.D. Reason for Consult: ESRD on peritoneal dialysis CHIEF COMPLAINT Management of peritoneal dialysis while hospitalized for Hemorrhage Gastrointestinal [K92.2]. HISTORY OF PRESENT ILLNESS Mr. Castro is a 81 y.o. 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 He has been admitted on 06/05/22 after presenting to the emergency department with multiple episodes of coffee-ground emesis. Mr. Castro normally undergoes peritoneal dialysis 7 nights a week at home. His outpatient dialysis prescription includes: CCPD; 8 hours; 4 exchanges; 1.5 L fill volume; 1.5% glucose; no day dwell. Hisestimated dry weight is 72.5 kg. He reports recently tolerating peritoneal dialysis well . He did not receive his full peritoneal dialysis last evening secondary to being in the emergency department. Mr. Castro is seen in his room. He reports things are going quite well for him. He reports home PD has been working well he typically has net fluid removal of 300-400 ml removal utilizing 1.5% bags. He does note there are quite a few alarms at night but he is unsure what these are for. He reports he has been draining adequate amounts. He denies any abdominal pain nor pain/drainage around his peritoneal dialysis catheter. He reports his last bowel movement was on 06/04/2022. Typically he has a bowelmovement daily. However the last few days he is had very poor oral intake secondary to his ongoing emesis and NPO status. He denies chest pain, shortness of breath, nor further feelings of fluid overload. Mr. Castro confirms he still makes urine multiple times daily. We discussed plan for him to continue with peritoneal dialysis at night. I have placed orders for his normal routine which is outlined above. REVIEW OF SYSTEMS Pertinent items are noted in HPI; all other review of systems was negative. OBJECTIVE Admission Current I/O 06/04 0000 06/04 0000 06/05 0000 06/06 2359 Urine 400 Total Output 400 Net -400 VITAL SIGNS Temperature: [36.4 ??C-36.5 ??C] 36.4 ??C Heart Rate: [70-97] 75 Resp Rate: [10-23] 17 Blood Pressure: (104-124)/(63-84) 104/63 SpO2: [93 %-98 %] 95 % Pulse Rate: [69-90] 74 PHYSICAL EXAM General: is alert and oriented. Resting in the bed. Does not appear in acute distress. Cardiovascular: Regular rate and rhythm. No adventitious heart sounds noted Respiratory: Regular rate and effort. On room air, lungs clear to auscultation Extremities: No edema present in bilateral lower extremities. Abdomen: Bowel sounds active times all 4 quadrants. Non-tender to palpation. Non-distended. Catheterexit site: no erythema noted, no drainage. DIAGNOSTICS Results from last 7 days Lab Units 06/06/22 0423 06/05/22 2306 HEMOGLOBIN g/dL 11.2* 12.7* WBC x10(9)/L 7.2 9.0 PLATELETS AUTO x10(9)/L 124* 143 Last 2 results Lab Units 06/06/22 0423 SODIUM mmol/L 144 POTASSIUM mmol/L 4.0 BICARBONATE S mmol/L 30* BUN mg/dL 37* CREATININE mg/dL 3.61* CALCIUM mg/dL 8.3* PHOSPHORUS INORGANIC mg/dL 3.6 ASSESSMENT / PLAN # End stage kidney disease secondary to nephrosclerosis, maintained on peritoneal dialysis since # Admitted on 06-05 for multiple episodes of coffee-ground emesis. 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 Castro we will undergo PD starting tonight per his regular outpatient routine. I request that gentamicin cream be placed around his PD catheter site and have dressing applied by dialysis nursing staff today. As noted in discussion outlined above, patient states he is not had a bowel movement since Monday. However, does not feel constipated at this time. Please ensure there are prn bowel medications available as constipation can cause significant peritoneal drainage issues with PD patients. Hepatitis B surface antibody was noted to have a quantitative value of greater than 1000 on 09/13/21.As Mr. Castro has developed immunity to hepatitis B, per dialysis guidelines, he requires yearly hepatitis B surface antibody monitoring. His most recent hepatitis B surface antigen was negative on 12/01/2021. will continue with peritoneal dialysis tonight with the following prescription: CCPD; 8 hours; 4 exchanges; 1.5 L fill volume; 1.5 % glucose; no day dwell [per his usual outpatient routine]. It appears from his outpatient dialysis unit records he receives Mircera 100 mcg subQ every 4 weeks in the outpatient setting, it is unclear when his next dosing is due. I have reached out to his outpatient dialysis unit who appears it appears they are closed today. As his hemoglobin is stable today, this is okay for Nephrology to follow-up with tomorrow. Additional Recommendations: -- Peritoneal dialysis tonight -- No phosphorus dietary restrictions are necessary -- Please obtain a renal function panel daily and serum magnesium -- Peritoneal dialysis x7 nights per week -- Please order 0.1% gentamicin cream (not ointment) to be applied around peritoneal dialysis catheter site daily -- Please have nursing staff clean PD catheter site with soap and water daily prior to applying gentamicin cream to site and cover with gauze dressing. -- Continue calcitriol 0.25 mcg p.o. capsules on Monday/Monday/Fridays -- Continue Dialyvite multivitamin 1 tablet p.o. daily with dinner -- Daily standing weight -- Avoid hypotension, maintain MAP>65 mmHg -- Avoid all nephrotoxins, if possible (contrast dye, unnecessary antibiotics, NSAIDs) -- Renally dose-adjust all medications for ESKD, on peritoneal dialysis -- Document strict intake and output -- Continue PRN bowel medications for constipation, as constipation can negatively impact the function of the PD catheter -- In the outpatient setting, the patient's antihypertensive regimen included: Metoprolol 12.5 mg p.o. b.i.d. and furosemide 20 mg p.o. daily. Recommend these be continued. -- Mircera (non-new formulary) is administered 100 mcg sq q4 weeks. It is unclear when his next dose is due. His outpatient dialysis unit is closed today we will follow up on this tomorrow. Disposition Planning: -- Please keep Nephrology informed regarding Mr. Castro's disposition as it becomes known so that we can ensure that his outpatient dialysis needs have been arranged appropriately prior to hospital dismissal. Mr. Castro's case has been staffed with Dr. Franco, Nephrology independent marketing consultant. For questions or concerns, please contact Nephrology B SPEECH AND HEARING DIRECTOR/PA pager ([phone]). documented in this encounter Nursing Notes Ramona Reeves R.N. - 06/07/2022 2:47 PM CDT Patient vitally stable for discharge. Peritoneal dialysis finished this morning & dialysis came to remove equipment. PIVs removed. AVS and education provided to patient and family by Connor. No further questions. Patient left the unit in wheelchair with family at 1430. Nicole Draper R.N. - 06/07/2022 5:46 AM CDT Problem: SAFETY ADULT - RISK FOR FALL AND OR FALL INJURY Goal: Patient remains free from fall/fall injury Outcome: Progressing Note: Pt remained safe and free from falls throughout shift. Pt did not ambulate during the shift. Problem: SAFETY ADULT Goal: Maintain a safe environment Outcome: Progressing Note: Environment remained safe throughout shift. Bed alarm was on overnight. Call light was within arms reach. Shift Goals: Identify possible barriers to meeting goals/advancing plan of care: Pt will remain vitally stable during the shift. End of Shift Summary: Pt remained vitally stable during the shift. Pt slept more than 4 hrs overnight. documented in this encounter ED Notes Ari Botello M.D. - 06/05/2022 10:58 PM CDT I have personally seen and examined this patient. I have fully participated in the care of this patient. I have reviewed all clinical information including history, physical exam, orders, and plan. I agree with the note of the resident. RUNNING INSTRUCTOR NOTE: SHERI Seen with Patient is an 81-year-old male with a history of prior ulcer disease and prior GI bleed as well as end-stage renal disease on peritoneal dialysis who presented to [facility] for multiple episodes of coffee-ground emesis. It is identical to the last time he had bleeding from his ulcers. Denies any black or bloody stool. He has been somewhat weak and lightheaded but has not had anysyncopal episodes. He is had no chest pain or problems breathing. Was evaluated there. His hemoglobin was 13.8. There was no capacity for admission there so he is transferred to our emergency department for admission to [facility] and determination of appropriate level of care. He denies any abdominal pain. He has nausea but no other complaints. On exam vitals as documented. He is awake alert no acute distress. He does have some dried blood in the mouth. Lungs are clear. Heart is regular. Abdomen is soft nontender. Extremities are warm well perfused. Skin is pink warm and dry. Impression: Acute gastrointestinal hemorrhage. Differential includes gastric ulcer, duodenal ulcer, gastritis, Ana M-Pederson, AVM, all among others. Currently he is hemodynamically normal. He has 2 points of access. He is in no distress. We will repeat a hemoglobin and obtain a type and screen here. He is had CT and full labs at the outside facility. At this point I am not seeing indication for ICU level care. We will admit him to GI for further evaluation and treatment. Final Diagnoses: as of 06/05/22 2341 Hemorrhage Gastrointestinal Ari Botello M.D. 06/05/22 2610 Ari Botello M.D. 06/06/22 0412 Orlin Deshpande M.D. - 06/05/2022 10:54 PM CDT CHIEF COMPLAINT/REASON FOR VISIT GI Bleeding HISTORY OF PRESENT ILLNESS David Castro is a 81 y.o. male with a past medical history most notable for CHF, sleep apnea, atrial fibrillation not on warfarin currently, hypertension, kidney failure, previous GI ulcer, who presents to the Emergency Department today due to coffee-ground emesis. Reports that last night he developed some coffee-ground emesis. Not currently on blood thinners thishas happened in the past. He was seen by GI in the past and received an EGD where he was on medications but this was stopped due to his Nephrology seeing these medications were contraindicated with hisperitoneal dialysis and kidney failure. He reports that he is having little bit of associated nauseawith this and multiple episodes of vomiting but otherwise is not having any symptoms. He is not feeling lightheaded or significantly tired or fatigued. Was seen in the at [place] in the emergency department for this issue. He was subsequently transferred to [facility] after he is worked up there. His hemoglobin was around 13.[address] did not show any acute robert bleeds but there was some patulous fluid in the esophagus. He was transferred via EMS remained stable throughout the transfer. He is not having any acute issues and now receiving medications throughout the transfer. At [facility] he was complaining of little bit of nausea and he was still having some coffee- ground emesis. No other symptoms at this time. REVIEW OF SYSTEMS Constitutional: Negative for chills, fatigue and fever. HENT: Negative for ear pain, rhinorrhea and sore throat. Eyes: Negative for visual disturbance. Respiratory: Negative for cough and shortness of breath. Cardiovascular: Negative for chest pain and palpitations. Gastrointestinal: Positive for hematemesis and nausea. Negative for abdominal pain, diarrhea and vomiting. Genitourinary: Negative for dysuria and urgency. Musculoskeletal: Negative for arthralgias and myalgias. Skin: Negative for rash. Neurological: Negative for headaches. Psychiatric/Behavioral: Negative for sleep disturbance. OBJECTIVE Initial Vitals [06/05/22 2251] Temp Pulse Heart Rate Resp BP SpO2 -- -- -- -- -- -- Pain Score 0 - No pain PHYSICAL EXAMINATION Constitutional: Nursing note and vitals reviewed. HENT: Head: Normocephalic and atraumatic. Nose: Nose normal. Eyes: Pupils are equal, round, and reactive to light. Cardiovascular: Regular rhythm and normal heart sounds. Tachycardia present. Pulses are palpable. Capillary refill: takes less than 3 seconds Pulmonary/Chest: Effort normal and breath sounds normal. There is normal air entry. Abdominal: Soft. There is no abdominal tenderness. Musculoskeletal: Cervical back: Normal range of motion. Neurological: Alert and oriented to person, place, and time. Skin: Skin is warm and dry. Psychiatric: He has a normal mood and affect. Behavior is normal. Thought content normal. DIFFERENTIAL DIAGNOSIS Gastric ulcer Esophageal ulcer Esophageal varices Boerhaave syndrome Ana M-Pederson DIAGNOSTIC STUDIES LABORATORY RESULTS: Abnormal Labs Reviewed - No data to display IMAGING STUDIES: No orders to display My ECG Interpretation: # 1 IMPRESSION: Sinus rhythm Premature atrial complexes Left bundle branch block with secondary ST-T abnormalities When compared with ECG of 05-APR-2022 14:01, Significant changes have occurred MEDICAL DECISION MAKING Mr. Castro is a very pleasant 81 y.o. male with a past medical history most notable for CHF, sleep apnea, atrial fibrillation not on warfarin currently, hypertension, kidney failure, previous GI ulcer, who presents to the Emergency Department today due to coffee-ground emesis.. On initial evaluation he was found to be resting, breathing comfortably and hemodynamically stable. Triage vital signs werereviewed. Available prior medical records were also reviewed and considered. David was given Zofran I considered the above differential diagnosis and diagnostic studies were therefore done accordingly. The patient mostly had a worsening gastric ulcer similar to his previous episode of coffee-ground emesis. We did not repeat many labs given that he just was worked up at 7:00 p.m. jud[facility] and transferred here. He was going to be a direct admission but there was no bed so he need be roomed in the emergency department and then transferred to a floor bed with GI services once they are available. We didrepeat a CBC and a type and screen. CBC did show a hemoglobin of 12.7 down from the reported 13.8 onpatient's previous lab results from his ED visit jud[facility]. Is concerning for ongoing GI bleed. He didnot have any robert blood but was continuing to have some coffee-ground emesis. Patient remained tachycardic but since he is on peritoneal dialysis he was only tachy in the low 105-110 range. We will monitor and low threshold to give some fluids but he should be transferred beforewe need to actually implement any IV fluid resuscitation. He was stable to transfer and remained stable throughout his emergency department visit. Contact the GI floor and they agreed to take this patient into their care. Sign- off was given on this patient. I reviewed previous medical records including documentation from previous visits. I personally reviewed the lab result(s) and my interpretation is documented above. I personally reviewed the radiology image(s) and reviewed the radiology report(s). I independently reviewed the EKG and my interpretation is documented above. CLINICAL IMPRESSION ED Course as of 06/05/222334 Sun Jun 05, [id number] CBC without Differential(!): Hemoglobin 12.7(!) Hematocrit 39.1 Erythrocytes 3.99(!) MCV 98.0(!) RBC Distrib Width 14.4 Platelet Count 143 White Blood Cell Count 9.0 CBC shows hemoglobin 12.7. He had hemoglobin of 13.8 previous CBC done [facility] from an outside hospital. Final Diagnoses: as of 06/05/222334 Hemorrhage Gastrointestinal Orlin Deshpande M.D. Resident 06/06/22 0101 Mishel Pacheco R.N., ELI - 06/05/2022 10:42 PM CDT Pt presents as a hospital transfer for evaluation of GI bleeding. Pts vitals stable. No change enroute. Electronically signed by: Mishel Pacheco R.N., ELI 06/05/22 10:43 PM CDT' Mishel Pacheco R.N., ELI 06/05/22 6469 documented in this encounter Miscellaneous Notes Hospital Course - Amarilis Weir - 06/07/2022 11:00 AM CDT Mr. David Castro is a 81 y.o. male who was admitted to the [facility] for evaluation and management of Hemorrhage Gastrointestinal. His medical comorbidities include ESRD on nightly peritoneal dialysis, paroxysmal atrial fibrillation, HTN, ELENI, longstanding achalasia (s/p Heller my otomy 2020 x20 without partial fundoplication) with esophageal failure complicated by recurrent aspiration pneumonia and esophageal stasis ulcers. The patient presented with coffee-ground emesis consistent with upper GI bleed. Patient has history of recurrent upper GI bleeds secondary to esophageal ulcers, which represents most likely source of current bleed. On admission, patient was initiated on IV pantoprazole. EGD 06/06showed - Features of achalasia including aperistalsis and dilated esophagus. No significant resistance traversing the lower esophageal sphincter. - Severe chronic esophagitis with bleeding. Findings can secondary to stasis and/or gastroesophageal reflux. Biopsied Sucralfate was initiated. We consulted nephrology for management of peritoneal dialysis and patient received dialysis on 06/07. Hemoglobin levels were stable. He tolerated blenderized full liquid diet well. He was discharged on 06/07 with arrangements to go to esophagus clinic to pursue further workup of the dysmotility and esophagitis. documented in this encounter Plan of Treatment Upcoming Encounters Date Type Specialty Care Team Description 06/16/2022 Clinical Support Nutrition Ankita Smyth M.D., Ph.D. [address] [place] [phone] Ace Morris, ALONAN, LD [address] [place] [phone] 06/20/2022 Comprehensive Visit Gastroenterology and [facility], Hepatology Maurice Mendes M.D., Ph.D. [address] [place] [phone] 06/22/2022 Appointment Radiology Maurice Smyth M.D., Ph.D. [address] [place] [phone] 07/12/2022 Clinical Communication Admitting/Central Scheduling 08/31/2022 Appointment Gastroenterology [facility] Hepat[facility] Maurice Mendes M.D., Ph.D. [address] [place] [phone] 09/01/2022 Appointment Gastroenterology [facility] Maurice Mendes M.D., Ph.D. [address] [place] [phone] 09/05/2022 Appointment Gastroenterology and [facility]at[facility] Maurice Mendes M.D., Ph.D. [address] [place] [phone] documented as of this encounter Procedures Procedure Name Priority Date/Time Associated Comments Diagnosis RENAL FUNCTION PANEL, Routine 06/07/2022 4:45 AM Results for this S CDT procedure are i n the results section. CBC WITH Routine 06/07/2022 4:45 AM Results f or this DIFFERENTIAL, B CDT procedure ar e in the results section. HEMOGLOBIN, B Timed 06/06/2022 4:16 PM Results for this CDT procedure are i n the results section. SURGICAL PATHOLOGY Routine 06/06/2022 12:56 Resul ts for this PM CDT procedure are i n the results section. UPPER GI ENDOSCOPY Routine 06/06/2022 12:06 Resul ts for this PM CDT procedure are i n the results section. EGD Routine 06/06/2022 12:06 (ESOPHAGEALGASTRODUOD PM CDT ENOSCOPY) CONTINUOUS CYCLING Routine 06/06/2022 11:01 PERITONEAL DIALYSIS AM CDT (CCPD) RENAL FUNCTION PANEL, Routine 06/06/2022 4:23 AM Results for this S CDT procedure are i n the results section. PROTHROMBIN TIME Routine 06/06/2022 4:23 AM Resul ts for this (PT), P CDT procedure are i n the results section. CBC WITH Routine 06/06/2022 4:23 AM Results f or this DIFFERENTIAL, B CDT procedure ar e in the results section. ECG STAT 06/05/2022 11:13 Results for this PM CDT procedure are i n the results section. CBC WITHOUT STAT 06/05/2022 11:06 Results for this DIFFERENTIAL, B PM CDT procedure ar e in the results section. TYPE AND SCREEN STAT 06/05/2022 11:06 Results for this PM CDT procedure are i n the results section. documented in this encounter Results (ABNORMAL) Renal Function Panel (06/07/2022 4:45 AM CDT) Analysis Performed At Patho logist [...] Organization Address City/State/ZIP Code Phon e Number [facility] - [address] [place], [place] [address] [facility] [place] [address] [facility] [address] [facility] (ABNORMAL) CBC with Differential, Blood (06/07/2022 4:45 AM CDT) [facility] Method Time Signature Hemoglobin 10.3 (L) 13.2 [...] M.D. LAB BLOOD ADD-ON Performing Organization Address City/[facility] Phon e Number [facility] - [address] (ABNORMAL) Hemoglobin (06/06/2022 4:16 PM CDT) athologist [facility] Hemoglobin 11.7 (L) 13.2 - 16.6 06/06/2022 DTL g/dL 4:44 PM CDT Specimen Anatomical Collection Method Collection Time Receive d Time (Source) Location / / Volume Laterality Blood (Blood, 06/06/2022 4:16 PM 06/06/20 4:38 Venous) CDT PM CDT Dariel Manzanares M.D. LAB BLOOD ADD-ON Performing Organization Address City/[facility] Phon e Number [facility] - [id number] [place] [address] Surgical Pathology (06/06/2022 12:56 PM CDT) Component [...] reagent. Its performance characteristics were determined by [facility] in a manner consistent with CLIA [...] Organization Address City/State/ZIP Code Phon e Number [facility] - [address] [place], [place] [address] [facility] [place] [address] [facility] [address] Upper GI Endoscopy (06/06/2022 12:06 PM CDT) Specimen (Source) Anatomical Collection Method Collection Time Re ceived Time Location / / Volume Laterality 06/06/2022 12:06 PM CDT [facility] 06/06/[facility] 1:11 PM CDT Post-op Diagnoses: [...] stomach. ? - Normal examined duodenum. Narrative [employer] - 06/06/2022 1:11 PM CDT Saul [...] ? - Referral to Esophageal Clinic w [facility] pre-scheduled esophageal manometry, ? upper endoscopy with [...] Organization Address City/State/ZIP Code Phon e Number [employer] [place] (ABNORMAL) CBC with Differential, Blood (06/06/2022 4:23 AM CDT) [facility] Method Time Signature Hemoglobin 11.2 (L) 13.2 - 06/06/2022 DTL 16.6 g/dL 4:58 AM CDT Hematocrit 35.6 (L) 38.3 - 06/06/2022 DTL 48.6 % 4:58 AM CDT Erythrocytes 3.60 (L) 4.35 - 06/06/2022 DTL 5.65 4:58 AM CDT x10(12)/L MCV 98.9 (H) 78.2 - 06/06/2022 DTL 97.9 fL 4:58 AM CDT RBC Distrib Width 14.5 11.8 - 06/06/2022 DTL 14.5 % 4:58 AM CDT Platelet Count 124 (L) 135 - 317 06/06/2022 DTL x10(9)/L 4:58 AM CDT Leukocytes 7.2 3.4 - 9.6 06/06/2022 DTL x10(9)/L 4:58 AM CDT Neutrophils 6.17 1.56 - 06/06/2022 DTL 6.45 4:58 AM CDT x10(9)/L Lymphocytes 0.46 (L) 0.95 - 06/06/2022 DTL 3.07 4:58 AM CDT x10(9)/L Monocytes 0.48 0.26 - 06/06/2022 DTL 0.81 4:58 AM CDT x10(9)/L Eosinophils 0.05 0.03 - 06/06/2022 DTL 0.48 4:58 AM CDT x10(9)/L Basophils <0.03 0.01 - 06/06/2022 DTL 0.08 4:58 AM CDT x10(9)/L Specimen Anatomical Collection Method Collection Time Receive d Time (Source) Location / / Volume Laterality Blood (Blood, 06/06/2022 4:23 AM 06/06/20 4:51 Venous) CDT AM CDT Lorrie Bo M.D. LAB BLOOD ADD-ON Performing Organization Address City/State/ZIP Code Phon e Number [facility] - [address] [place], [place] [address] [facility] [place] [address] [facility] [address] (ABNORMAL) Renal Function Panel (06/06/2022 4:23 AM CDT) Analysis Performed At Patho logist Time Signature Potassium, S 4.0 3.6 - 5.2 06/06/2022 DTL mmol/L 5:20 AM CDT Sodium, S 144 135 - 145 06/06/2022 DTL mmol/L 5:20 AM CDT Chloride, S 104 98 - 107 06/06/2022 DTL mmol/L 5:20 AM CDT Bicarbonate, S 30 (H) 22 - 29 06/06/2022 DTL mmol/L 5:20 AM CDT Anion Gap 10 7 - 15 06/06/2022 DTL 5:20 AM CDT BUN (Blood Urea 37 (H) 8 - 24 06/06/2022 DTL Nitrogen), S mg/dL 5:20 AM CDT Creatinine 3.61 (H) 0.74 - 06/06/2022 DTL 1.35 mg/dL 5:20 AM CDT Estimated GFR 16 (L) >=60 06/06/2022 DTL (eGFR) mL/min/BSA 5:20 AM CDT Comment: Estimated GFR calculated using the 2020 CKD_EPI creatinine equation. Calcium, Total, S 8.3 (L) 8.8 - 10.2 mg/dL 06/06/2022 5:20 AM CDT DTL Glucose, S 127 70 - 140 mg/dL 06/06/2022 5:20 AM CDT D TL Albumin, S 2.6 (L) 3.5 - 5.0 g/dL 06/06/2022 5:20 AM CDT D TL Phosphorus (Inorganic), S 3.6 2.5 - 4.5 mg/dL 06/06/20 5:20 AM CDT DTL Specimen Anatomical Collection Method Collection Time Receive d Time (Source) Location / / Volume Laterality Blood (Blood, 06/06/2022 4:23 AM 06/06/20 5:05 Venous) CDT AM CDT Lorrie Bo M.D. LAB BLOOD ADD-ON Performing Organization Address City/[facility]/ZIP Code Phon e Number [facility] - [address] [place], [place] [address] [place] [address] [facility] 200 [facility] Prothrombin Time (PT) (06/06/2022 4:23 AM CDT) athologist Signature Prothrombin 11.8 9.4 - 12.5 [...] Organization Address City/State/ZIP Code Phon e Number [facility] - [address] [place], [place] [address] [place] [address] [facility] 200 [facility] ECG 12 Lead (06/05/2022 11:13 PM CDT) P athologist Signature Ventricular Rate 89 BPM MUSE ECG/Min MT Interval 160 ms MUSE QRSD Interval 128 ms MUSE QT Interval 384 ms MUSE QTC Interval 467 ms MUSE P [place] 70 degrees MUSE R [place] 30 degrees MUSE T Wave [place] 54 degrees MUSE Specimen Anatomical Collection Method [...] reflex Antibody ID) (06/05/2022 11:06 PM CDT) [facility] Method Time Signature ABORh O Pos Not [...] Organization Address City/State/ZIP Code Phon e Number [facility] - [address] [place], [place] [address] [facility] [place] [address] [facility] [address] (ABNORMAL) CBC without Differential (06/05/2022 11:06 PM CDT) [employer] Method Time Signature Hemoglobin 12.7 (L) 13.2 [...] Organization Address City/State/ZIP Code Phon e Number [facility] - [address] [place] [address] [place] [address] [facility] [address] documented in this encounter Visit Diagnoses Diagnosis Hemorrhage Gastrointestinal - Primary Hemorrhage Gastrointestinal documented in this encounter Admitting Diagnoses Diagnosis Hemorrhage Gastrointestinal documented in this encounter Administered Medications Inactive Administered Medications - up to 3 most recent administrations Medication Order MAR Action Action Date Dose Rate Site allopurinoL tablet 100 mg Given 06/07/2022 10:02 AM CDT 100 mg (ZYLOPRIM) 100 mg, oral, Daily, First dose on Mon06/06/22 at 0900 Given 06/06/2022 9:01 AM CDT 100 mg calcitRIOL capsule 0.25 mcg (ROCALTROL) Given 06/06/2022 9:10 AM CDT 0.25 mcg 0.25 mcg, oral, 3 times weekly (Once per day on Mon), First dose on Mon06/06/22 at 0900 metoprolol tablet 12.5 mg (LOPRESSOR) Given 06/07/2022 10:02 AM CDT 12.5 mg 12.5 mg, oral, 2 times daily, First dose (after last modification) on Mon06/06/22 at 0900 Given 06/06/2022 8:18 PM CDT 12.5 mg Given 06/06/2022 10:07 AM CDT 12.5 mg multivitamin renal failure 100-1 mg 1 Given 06/06/2022 6:01 PM C DT 1 tablet tablet (DIALYVITE) 1 tablet, oral, Daily with dinner, First dose on Mon06/06/22 at 1700, give after dialysis on dialysis days ondansetron ODT disintegrating tablet 4 mg Given 06/06/2022 1:41 AM CDT 4 mg (ZOFRAN-ODT) 4 mg, oral, Every 6 hours PRN, nausea, vomiting, Starting on Mon06/06/22 at 0112, When splitting ODT at bedside, handle with gloves and a pill splitter to prevent moisture contact. pantoprazole injection 40 mg (PROTONIX) Given 06/07/2022 6:42 AM CDT 40 mg 40 mg, intravenous, 2 times daily before breakfast and dinner, First dose (after last modification) on Mon06/06/22 at 0700, Administer IV push over 2 minutes. Add 10 mL NS to 40 mg vial for a final concentration of 4 mg/mL. Given 06/06/2022 3:42 PM CDT 40 mg Given 06/06/2022 6:31 AM CDT 40 mg PD 1.5 % dextrose Low Ca 2.5 mEq/L- Mg 0.5 mEq/L Given 06/06 10:16 PM CDT 2,000 mL dialysis solution intraperitoneal, Once, On Mon06/06/22 at 1800, For 1 dose, Scheduling/ADT, Refer to: Continuous Cycling Peritoneal Dialysis (CCPD) order for therapy details PD 1.5 % dextrose Low Ca 2.5 mEq/L- Mg 0 .5 mEq/L 2,000 mL dialysis solution intraperitoneal, Once, On Mon06/07/22 a t 1800, For 1 dose, Scheduling/ADT, Refer to: Continuous Cycling Peritoneal Dialysis (CCPD) orde r for therapy details PD 1.5 % dextrose Low Ca 2.5 mEq/L- Mg 0.5 mEq/L Given 06/06 10:16 PM CDT 6,000 mL dialysis solution intraperitoneal, Once, On Mon06/06/22 at 1800, For 1 dose, Scheduling/ADT, Refer to: Continuous Cycling Peritoneal Dialysis (CCPD) order for therapy details PD 1.5 % dextrose Low Ca 2.5 mEq/L- Mg 0 .5 mEq/L 6,000 mL dialysis solution intraperitoneal, Once, On Mon06/07/22 a t 1800, For 1 dose, Scheduling/ADT, Refer to: Continuous Cycling Peritoneal Dialysis (CCPD) orde r for therapy details sucralfate tablet 1 g (CARAFATE) Given 06/07/2022 11:47 AM CDT 1 g 1 g, oral, 4 times daily before meals and bedtime, First dose on Mon06/06/22 at 1600, Administer on an empty stomach (1 hour before or 2 hours after eating). Dissolve in 50 cc of water Given 06/07/2022 6:42 AM CDT 1 g Given 06/06/2022 8:17 PM CDT 1 g documented in this encounter Active and Recently Administered Medications Times are shown in CDT. Scheduled Medication Order 06/05/2022 06/06/2022 06/07/2022 allopurinoL tablet 100 mg (ZYLOPRIM) 090 1 (Given - Provider: Dinah Valadez RNicohlas) 1002 (Given - Provider: Ramona rodrigez RBaileyNBailey) 100 mg, oral, Daily, First dose on Mon06/06/22 at 0900 calcitRIOL capsule 0.25 mcg (ROCALTROL) 0910 (Given - Provider: Dinah Valadez RBaileyNBailey) 0.25 mcg, oral, 3 times weekly (Once per day on Mon), First dose on Mon06/06/22 at 0900 metoprolol tablet 12.5 mg (LOPRESSOR) 10 07 (Given - Provider: Dinah Valadez RNicholas)2018 (Given - Provider: Nicole Draper RNicholas) 1002 (Given - Provider: Ramona Reeves RNicholas) 12.5 mg, oral, 2 times daily, First dose (after last modification) on Mon06/06/22 at 0900 multivitamin renal failure 100-1 mg 1 tablet (DIALYVITE) 1801 (Given - Provider: Dinah Valadez RBaileyNBailey) 1 tablet, oral, Daily with dinner, First dose on Mon06/06/22 at 1700, give after dialysis on dialysis days pantoprazole injection 40 mg (PROTONIX) 0631 (Given - Provider: Ej Virk R.N.)1542 (Given - Provider: Dinah Valadez R.N.) 0642 (Given - Provider: Nicole rDaper R.N.) 40 mg, intravenous, 2 times daily before breakfast and dinner, First dose (after last modification) on Mon06/06/22 at 0700, Administer IV push over 2 minutes. Add 10 mL NS to 40 mg vial for a final concentration of 4 mg/mL. PD 1.5 % dextrose Low Ca 2.5 mEq/L- Mg 0 .5 mEq/L 2,000 mL dialysis solution (COMPLETED) 2215 (Given - Provider: Trang Owusu) intraperitoneal, Once, On Mon06/06/22 a t 1800, For 1 dose, Scheduling/ADT, Refer to: Continuous Cycling Peritoneal Dialysis (CCPD) order for therapy details PD 1.5 % dextrose Low Ca 2.5 mEq/L- Mg 0.5 mEq/L 2,000 mL dialys is solution intraperitoneal, Once, On Mon06/07/22 a t 1800, For 1 dose, Scheduling/ADT, Refer to: Continuous Cycling Peritoneal Dialysis (CCPD) order for therapy details PD 1.5 % dextrose Low Ca 2.5 mEq/L- Mg 0 .5 mEq/L 6,000 mL dialysis solution (COMPLETED) 2215 (Given - Provider: Trang Owusu) intraperitoneal, Once, On Mon06/06/22 a t 1800, For 1 dose, Scheduling/ADT, Refer to: Continuous Cycling Peritoneal Dialysis (CCPD) order for therapy details PD 1.5 % dextrose Low Ca 2.5 mEq/L- Mg 0.5 mEq/L 6,000 mL dialys is solution intraperitoneal, Once, On Mon06/07/22 a t 1800, For 1 dose, Scheduling/ADT, Refer to: Continuous Cycling Peritoneal Dialysis (CCPD) order for therapy details sucralfate tablet 1 g (CARAFATE) 1542 (G iven - Provider: Dinah Valadez R.N.)2017 (Given - Provider: Nicole Draper R.N.) 0642 (Given - Provider: Nicole Draper R.N.)1147 (Given - Provider: Ramona Reeves R.N.) 1 g, oral, 4 times daily before meals an d bedtime, First dose on Mon06/06/22 at 1600, Administer on an empty stomach (1 hour before or 2 hours after eating). Dissolve in 50 cc of water PRN Medication Order 06/05/2022 06/06/2022 06/07/2022 ondansetron ODT disintegrating tablet 4 mg (ZOFRAN-ODT) 0141 (Given - Provider: Ej Virk R.N.) 4 mg, oral, Every 6 hours PRN, nausea, v omiting, Starting on Mon06/06/22 at 0112, When splitting ODT at bedside, handle with gloves and a pill splitter to prevent moisture contact. documented in this encounter Care Teams Neurosurgical Physician Assistant Relationship Specialty Start Date End Date Elsewhere, Pcp PCP - General Internal Medicine 06/05/22 documented as of this encounter
--- OUTSIDE RECORDS SUMMARY | 2022-06-14 06:20 | XMS_ITS | Encounter Summary ---
:1940 Author Organization [facility] Address [address] [place] [address] Care Team Providers Name Role Phone Unavailable Primary Care Provider Unavailable Reason for Referral Outpatient (Routine) - Closed Specialty Diagnoses / Procedures Referred By Contact Refer red To Contact Diagnoses Effusion Pericardial Acute (HCC) Jessa Heredia M.D. [facility] Procedures Echo Transthoracic (TTE) [address] [place] [address] Referral ID Status Reason Start Date Expiration Date Visits Requ ested Visits Authorized [id number] Closed 03/02/2022 03/02/2023 1 1 Outpatient (Routine) - Closed Specialty Diagnoses / Procedures Referred By Contact Refer red To Contact Diagnoses Effusion Pericardial Acute (HCC) Jessa Heredia M.D. [facility] Procedures ECG 12 Lead [address] [place] [address] Referral ID Status Reason Start Date Expiration Date Visits Requ ested Visits Authorized [id number] Closed 03/02/2022 03/02/2023 1 1 Outpatient (Routine) - Closed Specialty Diagnoses / Procedures Referred By Contact Refer red To Contact Cardiovascular Diseases / Diagnoses Effusion Pericardial Acute (HCC) Jessa Heredia [facility] Cardiovascular Disease Trinh [address] [place] [address] Referral ID Status Reason Start Date Expiration Date Visits Requ ested Visits Authorized [id number] Closed 03/02/2022 03/02/2023 1 1 Encounter Details Date Type Department Care Team Description 03/02/2022 Orders Only Division of Pulmonary Jessa Heredia, Effusion Pericardial Medicine in [facility] Acute (HCC) (Primary [place], [place] [address] [facility]) [address] [place] [phone] Social History Tobacco Use Types Packs/Day Years [...] or relatives? How often do you attend jainism or jehovah's witness More than 4 time s per year 04/11/2022 services? Do you belong to any clubs or organizations Yes 04/11/2022 such as jainism groups, unions, fraternal or athletic groups, or [...] Support Nutrition Ankita Smyth M.D., Ph.D. [address] [place] [phone] Ace Morris, JANY, LD [address] [place] [address] 06/20/2022 Comprehensive Visit Gastroenterology and [facility] Maurice Mendes M.D., Ph.D. [address] [place] [phone] 06/22/2022 Appointment Radiology Maurice Smyth M.D., Ph.D. [address] [place] [phone] 07/12/2022 Clinical Communication Admitting/Central Scheduling 08/31/2022 Appointment Gastroenterology and [facility] Maurice Mendes M.D., Ph.D. [address] [place] [phone] 09/01/2022 Appointment Gastroenterology and [facility] Maurice Mendes M.D., Ph.D. [address] [place] [phone] 09/05/2022 Appointment Gastroenterology and [facility] Maurice Mendes M.D., Ph.D. [address] [place] [phone] Scheduled Referrals Name Type Priority Associated Order Schedule Diagnoses Cardiovascular Disease Outpatient Routine Effusion Expec herminia: - General cardiology Referral Pericardial Acute consult (clinic) ([facility]) (Approximat e), Expires: 06/02/2023 documented as of this encounter Results (TTE) 2D ECHO DOPPLER COLOR (04/05/2022 3:55 PM CDT) [facility] Method Time Signature Ejection Fraction 66 [...] was performed but not reported based on business systems administrator's judgment. No regional wall motion abnormalities. Abnormal [...] MUSE QTC Interval 452 ms MUSE P [place] 10 degrees MUSE R [place] 6 degrees MUSE T Wave [place] 26 degrees MUSE Specimen Anatomical Collection Method [...]
--- OUTSIDE RECORDS SUMMARY | 2022-06-14 06:20 | XMS_ITS | Encounter Summary ---
:1940 Author Organization [facility] Address [address] [place] [address] Care Team Providers Name Role Phone Unavailable Primary Care Provider Unavailable Reason for Referral Outpatient (Routine) - Authorized Specialty Diagnoses / Referred By Contact Referred To Contact Procedures Cardiovascular Diseases / Diagnoses Stenosis Aortic Valve Acquired Arun Boone [facility] Cardiovascular Disease Trinh CASANOVA [address] [place] [address] Referral ID Status Reason Start Date Expiration Date Visits V isits Requested Authorized [id number] Authorized 04/15/2022 04/15/2023 1 1 Specialty Diagnoses / Procedures Referred By Contact Refer red To Contact Alyssa Richards M. D. [facility] [address] [place] [address] Referral ID Status Reason Start Date Expiration Date Visits Requ ested Visits Authorized Outpatient (Routine) - Authorized Specialty Diagnoses / Procedures Referred By Contact Refer red To Contact Diagnoses Stenosis Aortic Valve Acquired Arun Boone III, M.D. [facility] Procedures ECG 12 Lead [address] [place] [phone] Referral ID Status Reason Start Date Expiration Date Visits V isits Requested Authorized [id number] Authorized 04/15/2022 04/15/2023 1 1 Outpatient (Routine) - Authorized Specialty Diagnoses / Procedures Referred By Contact Refer red To Contact Diagnoses Stenosis Aortic Valve Acquired Arun Boone III [facility] Procedures Echo Transthoracic (TTE) - Complex Valvular Heart Disease Trinh [address] [place], [place] [phone] Referral ID Status Reason Start Date Expiration Date Visits V isits Requested Authorized [id number] Authorized 04/15/2022 04/15/2023 1 1 Outpatient (Routine) - Authorized Specialty Diagnoses / Procedures Referred By Contact Refer red To Contact Diagnoses Stenosis Aortic Valve Acquired Arun Boone III, M.D. [facility] Procedures DX Chest AP or PA and Lateral 2 Views [address] [place] [phone] Referral ID Status Reason Start Date Expiration Date Visits V isits Requested Authorized [id number] Authorized 04/15/2022 04/15/2023 1 1 Reason for Visit Outpatient (Routine) - Closed Specialty Diagnoses / Procedures Referred By Contact Refer red To Contact Cardiovascular Diseases / Diagnoses Effusion Pericardial Acute (HCC) Jessa Heredia [facility] Cardiovascular Disease Trinh [address] [place] [address] Referral ID Status Reason Start Date Expiration Date Visits Requ ested Visits Authorized [id number] Closed 03/02/2022 03/02/2023 1 1 Encounter Details Date Type Department Care Team Description 04/15/2022 Virtual Visit Department of Jessa Heredia M.D. [address] [place] [phone] Stenosis Aortic Valve Acquired (Primary Dx); Cardiovascular Medicine Alyssa Richards M.D. [address] [place] [address] Effusion Pericardial Acute (HCC) in [facility] bret [address] [place] [address] Social History Tobacco Use Types Packs/Day Years [...] How often do you attend evangelical or methodist More than 4 time s per year [...] 04/15/2022 8:30 AM CDT SUPERVISED BY: Dr. Lapeyre SUBJECTIVE CHIEF COMPLAINT / REASON FOR VISIT David is a 81 y.o. male who presents for evaluation of pericardial effusion Consult conducted via real-time audio/visual technology by Alyssa Richards M.D. in [facility] to the patient in patient's home. Subjective #1 Effusion Pericardial Acute (HCC) Psychosocial: Patient is calling from [facility] Pertinent past medical history: Atrial fibrillation on [...] TTE was ordered and follow-up with the foreign exchange dealer as well requested. His most recent TTE demonstrated interval improvement with small circumferential pleural effusion noted. He also had a repeat ECG that was done which came back similar to previous ECG with first-degree AV block and left bundle-branch block noted. No diffuse ST segment elevation,WI depression, downsloping TP segment, or electrical alternans [...] person today, but is currently hospitalized in [place] due to some issues with nausea and dysphagia. As above, he has a know history of achalasia for which he underwent myotomy in 2020. He denies any symptoms to suggest orthopnea, [...] Specialty Care Team Description 06/16/2022 Clinical Support Ankita Cortes M.D., Ph.D. [address] [place] [phone] Ace Morris, ALONAN, LD [address] [place] [address] 06/20/2022 Comprehensive Visit Gastroenterology and [facility] Maurice Mendes M.D., Ph.D. [address] [place] [phone] 06/22/2022 Appointment Radiology Maurice Smyth M.D., Ph.D. [address] [place] [phone] 07/12/2022 Clinical Communication Admitting/Central Scheduling 08/31/2022 Appointment Gastroenterology and [facility] Maurice Mendes M.D., Ph.D. [address] [place] [phone] 09/01/2022 Appointment Gastroenterology and Libra Hepattanya Mendes M.D., Ph.D. [address] [place] [phone] 09/05/2022 Appointment Gastroenterology and [facility] Maurice Mendes M.D., Ph.D. [address] [place] [phone] Scheduled Orders Name Type Priority Associated Order [...]
--- OUTSIDE RECORDS SUMMARY | 2022-06-14 06:20 | XMS_ITS | Encounter Summary ---
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 [facility] Procedures CT Chest without IV Contrast CA CT THORAX WO CNTRST [address] [place] [address] [phone] Referral ID Status Reason Start Date Expiration Date Visits Requ ested Visits Authorized [id number] Closed 12/28/2021 12/28/2022 1 1 Encounter Details Date Type Department Care Team Description 03/02/2022 Hospital Encounter Department of Peng Tinajero, Pneumon itis Due To Radiology, Danny Tsang Inhalation Of Food Building, in [address] [place] [address] And Vomit (HCC) [place], [place] [address] [facility] [address] [place], [place] [phone] (Work) [phone] Social History Tobacco Use Types Packs/Day Years [...] How often do you attend voodoo or islam More than 4 time s [...] mg by mouth 0 100 mg tablet every morning. calcitRIOL (ROCALTROL) Take 1 capsule by 0 2018 0.25 mcg capsule mouth 3 (three) times a week. Kailash, Monday, Monday metoprolol tartrate Take 12.5 mg by mouth 0 (LOPRESSOR) 25 mg tablet 2 (two) times a day. multivitamin renal Take 1 tablet by 30 tablet 0 12/08/2021 failure (DIALYVITE) mouth daily with 100-1 mg tablet dinner. torsemide (DEMADEX) 20 Take 1 tablet (20 mg 0 mg tablet total) by mouth daily. omeprazole (PriLOSEC) 20 Take 1 capsule (20 mg 0 12/11/2021 06/06/[address] capsule total) by mouth 2 (two) times a day before breakfast and dinner. warfarin (COUMADIN) 2 mg 1 mg on //Mon and 0 01/07/2019 06/06/2022 tablet 2 mg on ///Mon. documented as of this encounter Plan of Treatment Upcoming Encounters Date Type Specialty Care Team Description 06/16/2022 Clinical Support Nutrition Ankita Smyth M.D., Ph.D. [address] [place] [phone] Ace Morris, JANY, [address] [phone] 06/20/2022 Comprehensive Visit Gastroenterology and [facility], Hepatology Maurice Mendes M.D., Ph.D. [address] [place] [phone] 06/22/2022 Appointment Radiology Maurice Smyth M.D., Ph.D. [address] [place] [address] [phone] 07/12/2022 Clinical Communication Admitting/Central Scheduling 08/31/2022 Appointment Gastroenterology and [facility], Hepatology Maurice Mendes M.D., Ph.D. [address] [place] [phone] 09/01/2022 Appointment Gastroenterology and [facility] Hepatology Maurice Mendes M.D., Ph.D. [address] [place] [phone] 09/05/2022 Appointment Gastroenterology and [facility] Hepatology Maurice Mendes M.D., Ph.D. [address] [place] [phone] documented as of this encounter Procedures Procedure [...]
--- OUTSIDE RECORDS SUMMARY | 2022-06-14 06:20 | XMS_ITS | Encounter Summary ---
:1940 Author Organization [facility] Address [address] [place] [address] Care Team Providers Name Role Phone Unavailable Primary Care Provider Unavailable Reason for Referral Outpatient (Routine) - Authorized Specialty Diagnoses / Procedures Referred By Contact Refer red To Contact Diagnoses Effusion Pericardial Acute (HCC) Chronic Systolic (Congestive) Heart Failure (HCC) Atrial Fibrillation Paroxysmal (HCC) Bundle Branch Block Left Dialysis Peritoneal Status (HCC) [facility] Procedures ECG Heart rhythm monitor (Holter) C.N.P. [address] [place] [address] Referral ID Status Reason Start Date Expiration Date Visits V isits Requested Authorized [id number] Authorized 03/08/2022 03/08/2023 1 1 Reason for Visit Outpatient (Routine) - Authorized Specialty Diagnoses / Procedures Referred By Contact Refer red To Contact Diagnoses Effusion Pericardial Acute (HCC) Chronic Systolic (Congestive) Heart Failure (HCC) Atrial Fibrillation Paroxysmal (HCC) Bundle Branch Block Left Dialysis Peritoneal Status (HCC) [facility] Procedures ECG Heart rhythm monitor (Holter) C.N.P. [address] [place] [address] Referral ID Status Reason Start Date Expiration Date Visits V isits Requested Authorized [id number] Authorized 03/08/2022 03/08/2023 1 1 Encounter Details Date Type Department Care Team Description 04/04/2022 Hospital Department of [place], Effusion Peric ardial Acute (HCC); Encounter Cardiovascular Mehrdad M, Chronic Systo lic (Congestive) Heart Failure (HCC); Diseases in [place], LUGGAGE LINER, C.N .P. Atrial Fibrillation Paroxysmal ([facility]); [place] [address] Bundle Branch Block Left; [address] [place], [place] Dialysis Peritoneal Status ( HCC) [place] [phone] Social History Tobacco Use Types Packs/Day Years [...] How often do you attend restorationist or christianity More than 4 time s [...] Support Nutrition Ankita Smyth M.D., Ph.D. 200 [place] [phone] Ace Morris, JANY, [address] [phone] 06/20/2022 Comprehensive Visit Gastroenterology and [facility], Hepatology Maurice Mendes M.D., Ph.D. 200 [place] [phone] 06/22/2022 Appointment Radiology Maurice Smyth M.D., Ph.D. 200 [place] [phone] 07/12/2022 Clinical Communication Admitting/Central Scheduling 08/31/2022 Appointment Gastroenterology and [facility] Hepatology Maurice Mendes M.D., Ph.D. [address] [place] [phone] 09/01/2022 Appointment Gastroenterology and [facility] Hepatology Maurice Mendes M.D., Ph.D. [address] [place] [phone] 09/05/2022 Appointment Gastroenterology and [facility] Hepatology Maurice Mendes M.D., Ph.D. [address] [place] [phone] documented as of this encounter Procedures Procedure Name Priority Date/Time Associated Diagnosis Comme nts HOLTER MONITOR - IN Routine 04/05/2022 6:00 AM Effusion Perica rdial Results for this CLINIC SOLICITOR PATENT CDT Acute (HCC) procedure are in Chronic Systolic the results (Congestive) Heart section. Failure (HCC) Atrial Fibrillation Paroxysmal (HCC) Bundle Branch Block Left Dialysis Peritoneal Status (HCC) documented in this encounter Results HOLTER MONITOR - IN CLINIC SOLICITOR PATENT (04/05/2022 6:00 AM CDT) P athologist Signature [...] Duration 6h 30m duration INFOBIONIC MOME AF [place] 29 percent INFOBIONIC MOME Longest AF 7h [...] seen singly at and around these times. Marketing Intelligence Analyst: Marilou Zimmer / Violet Cotton Fellow: Clemente [...] seen singly at and around these times. Marketing Intelligence Analyst: Marilou Zimmer / Violet Cotton Fellow: Clemente Dos Santos MD Mehrdad Lazcano APRN C.N.P. [facility] PRO CEDURES Performing Organization Address City/State/ZIP Code Phon e Number INFOBIONIC MOME INFOBIONIC MOME NA documented in this encounter Visit Diagnoses Diagnosis Effusion Pericardial Acute (HCC) 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
--- OUTSIDE RECORDS SUMMARY | 2022-06-14 06:20 | XMS_ITS | Encounter Summary ---
:1940 Author Organization [facility] Address [address] [place] [address] Care Team Providers Name Role Phone Elsewhere, Pcp Primary Care Provider Unavailable Encounter Details Date Type Department Care Team Description 06/06/2022 Ancillary Procedure Department of Gastroenterology Social History [...] How often do you attend buddhist or adventism More than 4 time s [...] Support Nutrition Ankita Smyth M.D., Ph.D. [address] [place] [phone] Ace Morris, ALONAN, LD [address] [place] [phone] 06/20/2022 Comprehensive Visit Gastroenterology and [facility] Hepatology Maurice Mendes M.D., Ph.D. [address] [place] [phone] 06/22/2022 Appointment Radiology Maurice Smyth M.D., Ph.D. [address] [place] [phone] 07/12/2022 Clinical Communication Admitting/Central Scheduling 08/31/2022 Appointment Gastroenterology and [facility] Hepatology Maurice Mendes M.D., Ph.D. [address] [place] [phone] 09/01/2022 Appointment Gastroenterology and [facility] Hepatology Maurice Mendes M.D., Ph.D. [address] [place] [phone] 09/05/2022 Appointment Gastroenterology and [facility] Hepatology Maurice Mendes M.D., Ph.D. [address] [place] [phone] documented as of this encounter Procedures Procedure Name Priority Date/Time Associated Comments Diagnosis GASTROENTEROLOGY IMAGE Routine 06/06/2022 12:10 R esults for this EXAM PM CDT procedure are i n the results section. documented in this encounter Results Upper GI endoscopy-Gastroenterology Image Exam (06/06/2022 12:10 [...] on filedocumented in this encounter Care Teams Staff Home Therapy Rn Relationship Specialty Start Date End Date Elsewhere, Pcp PCP - General Internal Medicine 06/05/22 documented as of this encounter
--- OUTSIDE RECORDS SUMMARY | 2022-06-14 06:20 | XMS_ITS | Encounter Summary ---
:1940 Author Organization [facility] Address [address] [place] [address] Care Team Providers Name Role Phone Unavailable Primary Care Provider Unavailable Reason for Referral Outpatient (Routine) - Closed Specialty Diagnoses / Procedures Referred By Contact Refer red To Contact Pulmonary Medicine Peng Tinajero M.D. [address] [phone] Referral ID Status Reason Start Date Expiration Date Visits Requ ested Visits Authorized [id number] Closed 12/28/2021 12/28/2022 1 1 Scheduling Instructions F/U pleural clinic. I am happy to see bu t if this doesn't work out he can be seen in pleural clinic. Reason for Visit Outpatient (Routine) - Closed Specialty Diagnoses / Procedures Referred By Contact Refer red To Contact Pulmonary Medicine Peng Tinajero M.D. [address] [phone] Referral ID Status Reason Start Date Expiration Date Visits Requ ested Visits Authorized [id number] Closed 12/28/2021 12/28/2022 1 1 Encounter Details Date Type Department Care Team Description 03/02/2022 Hospital Encounter Division of Jessa Heredia Pleural Pulmonary Medicine Trinh Mendes (Primary Dx) in [address] [place] [phone] [place], [place] [phone] (Work) [phone] Social History Tobacco Use Types Packs/Day Years [...] How often do you attend restoration or episcopal More than 4 time s [...] Support Nutrition Ankita Smyth M.D., Ph.D. [address] [place] [phone] Ace Morris, ALONAN, LD [address] [place] [phone] 06/20/2022 Comprehensive Visit Gastroenterology and Libra, Hepatology Maurice Mendes M.D., Ph.D. [address] [place] [address] [phone] 06/22/2022 Appointment Radiology Maurice Smyth M.D., Ph.D. [address] [place] [phone] 07/12/2022 Clinical Communication Admitting/Central Scheduling 08/31/2022 Appointment Gastroenterology and [facility] Hepatology Maurice Mendes M.D., Ph.D. [address] [place] [phone] 09/01/2022 Appointment Gastroenterology and [facility] Hepatology Maurice Mendes M.D., Ph.D. [address] [place] [phone] 09/05/2022 Appointment Gastroenterology and [facility] Hepatology Maurice Mendes M.D., Ph.D. [address] [place] [phone] Scheduled Referrals Name Type Priority Associated Order Schedule Diagnoses Pulmonary Medicine Outpatient Referral Routine On ce for 1 office visit Occurrences sta rting (clinic) 03/02/2022 unti l 03/02/2022 documented as of this encounter Visit Diagnoses Diagnosis Effusion Pleural - Primary documented in this encounter
--- OUTSIDE RECORDS SUMMARY | 2022-06-14 06:20 | XMS_ITS | Encounter Summary ---
:1940 Author Organization [facility] Address [address] [place] [address] Care Team Providers Name Role Phone Unavailable Primary Care Provider Unavailable Reason for Visit Reason Comments Med Refill Encounter Details Date Type Department Care Team Description 01/26/2022 Refill [facility], [facility], Estela Cummins, Med Refill [facility], [facility] [address] [place] [address] [place] [phone] [place] [phone] Social History Tobacco Use Types Packs/Day Years [...] How often do you attend lutheran or yarsani More than 4 time s [...] Support Nutrition Ankita Smyth M.D., Ph.D. [address] [place] [phone] Ace Morris, ALONAN, LD [address] [place] [phone] 06/20/2022 Comprehensive Visit Gastroenterology and [facility] Hepatology Maurice Mendes M.D., Ph.D. [address] [place] [phone] 06/22/2022 Appointment Radiology Maurice Smyth M.D., Ph.D. [address] [place] [phone] 07/12/2022 Clinical Communication Admitting/Central Scheduling 08/31/2022 Appointment Gastroenterology and [facility] Hepatology Maurice Mendes M.D., Ph.D. [address] [place] [phone] 09/01/2022 Appointment Gastroenterology dari Smyth Hepatology Maurice Mendes M.D., Ph.D. [address] [place] [phone] 09/05/2022 Appointment Gastroenterology and [facility] Hepatology Maurice Mendes M.D., Ph.D. [address] [place] [phone] documented as of this encounter Visit Diagnoses Not on filedocumented in this encounter
--- OUTSIDE RECORDS SUMMARY | 2022-06-14 06:20 | XMS_ITS | Encounter Summary ---
:1940 Author Organization [facility] Address [address] [place] [address] Care Team Providers Name Role Phone Unavailable Primary Care Provider Unavailable Reason for Referral Outpatient (Routine) - Closed Specialty Diagnoses / Procedures Referred By Contact Refer red To Contact Diagnoses Effusion Pericardial Acute (HCC) Jessa Heredia M.D. [facility] Procedures Echo Transthoracic (TTE) 200 [place] [phone] Referral ID Status Reason Start Date Expiration Date Visits Requ ested Visits Authorized [id number] Closed 03/02/2022 03/02/2023 1 1 Reason for Visit Outpatient (Routine) - Closed Specialty Diagnoses / Procedures Referred By Contact Refer red To Contact Diagnoses Effusion Pericardial Acute (HCC) Jessa Heredia M.D. [facility] Procedures Echo Transthoracic (TTE) 200 [place] [address] Referral ID Status Reason Start Date Expiration Date Visits Requ ested Visits Authorized [id number] Closed 03/02/2022 03/02/2023 1 1 Encounter Details Date Type Department Care Team Description 04/05/2022 Hospital Department of Jessa Heredia Effusion Encounter Cardiovascular Trinh Mendes Pericardial Acute Diseases in [place], [facility] 1[address] [facility] (HCC) [place], [place] 200 [facility] [address] [place], [place] [phone] (Work) [phone] Social History Tobacco Use Types Packs/Day Years [...] How often do you attend christian or zoroastrianism More than 4 time s per year 04/11/2022 services? Do you belong to any clubs or organizations Yes 04/11/2022 such as christian groups, unions, fraternal or [...] Support Nutrition Ankita Smyth M.D., Ph.D. [address] [place] [phone] Ace Morris, ALONAN, LD [address] [place] [phone] 06/20/2022 Comprehensive Visit Gastroenterology and [facility] Hepatology Maurice Mendes M.D., Ph.D. [address] [place] [phone] 06/22/2022 Appointment Radiology Maurice Smyth M.D., Ph.D. [address] [place] [phone] 07/12/2022 Clinical Communication Admitting/Central Scheduling 08/31/2022 Appointment Gastroenterology and [facility] Hepatology Maurice Mendes M.D., Ph.D. [address] [place] [phone] 09/01/2022 Appointment Gastroenterology and [facility] Hepatology Maurice Mendes M.D., Ph.D. [address] [place] [phone] 09/05/2022 Appointment Gastroenterology and [facility] Hepatology Maurice Mendes M.D., Ph.D. [address] [place] [phone] documented as of this encounter Procedures Procedure Name Priority Date/Time Associated Diagnosis Comme nts (TTE) 2D ECHO Routine 04/05/2022 3:55 PM Effusion Pericardial Results for this DOPPLER COLOR CDT Acute (HCC) procedure are in the results section. documented in this encounter Results (TTE) 2D ECHO DOPPLER COLOR (04/05/2022 3:55 PM CDT) [facility] Method Time Signature Ejection Fraction 66 [...] was performed but not reported based on roller printer's judgment. No regional wall motion abnormalities. Abnormal [...]
--- OUTSIDE RECORDS SUMMARY | 2022-06-14 06:20 | XMS_ITS | Encounter Summary ---
:1940 Author Organization [facility] Address [address] [place] [address] Care Team Providers Name Role Phone Unavailable Primary Care Provider Unavailable Reason for Visit Reason Comments Release of Information Encounter Details Date Type Department Care Team Description 03/03/2022 Clinical Division of Jessa Heredia of Communication Pulmonary Medicine Trinh Mendes Information in [address] [place] [phone] [place], [place] [phone] (Work) [phone] Social History Tobacco Use Types Packs/Day Years [...] How often do you attend sabianism or druze More than 4 time s [...] of Information Items: [facility] forms To: [place] Evidence intake Method: ROHIT FerrellQ / 2-1321 documented in this encounter Plan of Treatment Upcoming Encounters Date Type Specialty Care Team Description 06/16/2022 Clinical Support Nutrition Ankita Smyth M.D., Ph.D. [address] [place] [phone] Ace Morris, ALONAN, LD [address] [place] [phone] 06/20/2022 Comprehensive Visit Gastroenterology and Libra, Hepatology Maurice Mendes M.D., Ph.D. [address] [place] [phone] 06/22/2022 Appointment Radiology Maurice Smyth M.D., Ph.D. [address] [place] [phone] 07/12/2022 Clinical Communication Admitting/Central Scheduling 08/31/2022 Appointment Gastroenterology and [facility] Hepatology Maurice Mendes M.D., Ph.D. [address] [place] [phone] 09/01/2022 Appointment Gastroenterology and Libar Hepatology Maurice Mendes M.D., Ph.D. [address] [place] [phone] 09/05/2022 Appointment Gastroenterology and [facility] Hepatology Maurice Mendes M.D., Ph.D. [address] [place] [address] [phone] documented as of this encounter Visit Diagnoses Not on filedocumented in this encounter
--- OUTSIDE RECORDS SUMMARY | 2022-06-14 06:20 | XMS_ITS | Encounter Summary ---
:1940 Author Organization [facility] Address [address] [place] [address] Care Team Providers Name Role Phone Elsewhere, Pcp Primary Care Provider Unavailable Reason for Referral Outpatient (Routine) - Authorized Specialty Diagnoses / Referred By Referred To Cont act Procedures Contact Gastroenterology and Diagnoses [facility] Hepat[facility] Trinh Mendes, Ph.D. [address] [place] [phone] Referral ID Status Reason Start Date Expiration Date Visits V isits Requested Authorized [id number] Authorized 06/06/2022 06/06/2023 1 1 Encounter Details Date Type Department Care Team Description 06/06/2022 Clinical Communication Division of Libra, Gastroenterology in Maurice Mendes M.D., [place], [place] Ph.D. [address] [place] [address] [place] [phone] [place], [place] [phone] Social History Tobacco Use Types Packs/Day Years [...] How often do you attend mormonism or congregation More than 4 time s per year 04/11/2022 services? Do you belong to any clubs or organizations Yes 04/11/2022 such as mormonism groups, unions, fraternal or [...] Support Nutrition Ankita Smyth M.D., Ph.D. [address] [place] [address] [phone] Ace Morris, JANY, LD [address] [place] [phone] 06/20/2022 Comprehensive Visit Gastroenterology and Libra, Hepatology Maurice Mendes M.D., Ph.D. [address] [place] [address] [phone] 06/22/2022 Appointment Radiology Maurice Smyth M.D., Ph.D. [address] [place] [address] [phone] 07/12/2022 Clinical Communication Admitting/Central Scheduling 08/31/2022 Appointment Gastroenterology and [facility] Hepatology Maurice Mendes M.D., Ph.D. [address] [place] [phone] 09/01/2022 Appointment Gastroenterology dari Smyth Hepattanya Mendes M.D., Ph.D. [address] [place] [phone] 09/05/2022 Appointment Gastroenterology dari Smyth Hepattanya Mendes M.D., Ph.D. [address] [place] [phone] Scheduled Referrals Name Type Priority Associated Order Schedule Diagnoses Gastroenterology and Outpatient Routine Achalasia Expecte d: Hepatology - Esophageal Referral 05/21 consult (clinic) (Approximat e), Expires: 09/06/2023 documented as of this encounter Visit Diagnoses Diagnosis Achalasia - Primary documented in this encounter Care Teams Human Resources File Clerk Relationship Specialty Start Date End Date Elsewhere, Pcp PCP - General Internal Medicine 06/05/22 documented as of this encounter
--- OUTSIDE RECORDS SUMMARY | 2022-06-14 06:20 | XMS_ITS | Encounter Summary ---
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 documented as of this encounter Plan of Treatment Upcoming Encounters Date Type Specialty Care Team Description 06/16/2022 Clinical Support Nutrition Ankita Smyth M.D., Ph.D. [address] [place] [phone] Ace Morris, RDN, LD [address] [place] [phone] 06/20/2022 Comprehensive Visit Gastroenterology and [facility] Maurice Mendes M.D., Ph.D. [address] [place] [phone] 06/22/2022 Appointment Radiology Maurice Smyth M.D., Ph.D. [address] [place] [phone] 07/12/2022 Clinical Communication Admitting/Central Scheduling 08/31/2022 Appointment Gastroenterology and [facility] Hepatology Maurice Mendes M.D., Ph.D. [address] [place] [phone] 09/01/2022 Appointment Gastroenterology and Libra Hepattanya Mendes M.D., Ph.D. [address] [place] [phone] 09/05/2022 Appointment Gastroenterology and [facility] Hepatology Maurice Mendes M.D., Ph.D. [address] [place] [phone] documented as of this encounter Procedures Procedure [...] (ABNORMAL) Sedimentation Rate (04/04/2022 11:36 AM CDT) [facility] Method Time Signature Sedimentation 61 (H) 3 - 28 04/04/2022 DTL Rate, B mm/h 12:50 PM CDT Specimen Anatomical Collection Method Collection Time Receive d Time (Source) Location / / Volume Laterality Blood (Blood, 04/04/2022 11:36 04/04/2022 Venous) AM CDT 11:56 AM CDT Mehrdad Lazcano APRN, C.N.P. LAB BLOOD ADD-ON Performing Organization Address City/State/ZIP Code Phon e Number [facility] - [address] [place], [place] [address] [facility] [place] [address] Laboratories-[facility] [address] (ABNORMAL) CBC with Differential, Blood (04/04/2022 11:36 AM CDT) [facility] Method Time Signature Hemoglobin 11.7 (L) 13.2 [...] City/State/ZIP Code Phon e Number [facility] - [address] [place], [place] [address] [facility] [place] [address] Laboratories-[facility] [address] (ABNORMAL) CRP (C-Reactive Protein) (04/04/2022 11:35 AM CDT) athologist Signature C-Reactive 16.2 (H) <=8.0 mg/L 04/04/2022 DTL Protein (CRP), 1:55 PM CDT S Specimen Anatomical Collection Method Collection Time Receive d Time (Source) Location / / Volume Laterality Blood (Blood, 04/04/2022 11:35 04/04/2022 Venous) AM CDT 12:06 PM CDT Mehrdad Lazcano APRN, C.N.P. LAB BLOOD ADD-ON Performing Organization Address City/[facility] Phon e Number [facility] - [address] [place], [place] [address] [place] [address] (ABNORMAL) NT-Pro B-Type Natriuretic Peptide (BNP) [...] C.N.P. LAB BLOOD ADD-ON Performing Organization Address City/State/[facility] Phon e Number [facility] - [address] [place], [place] [address] [facility] [place] [address] [place] [address] (ABNORMAL) Comprehensive Metabolic Panel (04/04/2022 11:35 [...] 04/04/2022 DTL Black/ mL/min/BSA 1:48 PM CDT Citizen [place] Comment: ----ADDITIONAL INFORMATION---- Estimated GFR calculated using [...] City/State/ZIP Code Phon e Number [facility] - [address] [place], [place] [address] [facility] [place] [address] Laboratories-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
--- OUTSIDE RECORDS SUMMARY | 2022-06-14 06:20 | XMS_ITS | Encounter Summary ---
:1940 Author Organization [facility] Address [address] [place] [address] Care Team Providers Name Role Phone Elsewhere, Pcp Primary Care Provider Unavailable Reason for Visit Auth/Cert Specialty Diagnoses / Procedures Referred By Contact Refer red To Contact Diagnoses Hemorrhage Gastrointestinal coffee ground emesis Procedures ADMIT TO INPATIENT Referral ID Status Reason Start Date Expiration Date Visits Requ ested Visits Authorized [id number] 1 1 Encounter Details Date Type Department Care Team Description 06/06/2022 Anesthesia Event Division of Gastroenterology Be José Luis engle APRN, ZACH [address] [place] [phone] in [facility] Jacob Moore APRN, WRAPPER OFF [address] [place] [phone] [place] [phone] Anesthesia Record Procedure Summary Procedure Name Responsible Anesthesia Start Anesthesia Stop Time Anesthesiologist Time EGD José Luis Jauregui APRN, ZACH 06/06/22 1229 1312 (ESOPHAGEALGASTRODU ODENOSCOPY) Events Date Time Event Comment 06/06/2022 1229 An Start Machine/Equipmen t Checked Infection Precautions Foll owed Procedure/Site Verified NPO Sta tus Verified Supine Standard ASA Mon itors Applied 1236 An Induction 1238 An Intubation 1239 Turnover to Proceduralist 1242 Proc Start 1257 Proc Fin 1302 Turnover to ANE Staff 1305 Airway Removal Criteria Met 1305 Extubation/Airway Removed 1307 an stop data 1312 An End I completed my h andoff to the receiving staff during [facility] we 1. Identified the patient [...] mcg/mL 50 mcg lidocaine 2% (mg) injection 60 mg propofol 10 mg/mL 100 mg propofol 10 mg/mL infusion 142.4 mg succinylcholine 20 mg/mL injection 100 mg phenylephrine 100 mcg/mL injection 200 mcg ondansetron 4 mg/2 mL injection 4 mg Lactated Ringers Free Drip 600 mL Agents No agents on file. Blood No blood administrations on file. Lines, Drains, and Airways Type Details Placement Removal Peritoneal Dialysis Other (Comment); Right 12/02/21 0837 by Catheter lower abdomen Peripheral IV Placement Date: 06/05/222332 by 06/07/22 1400 b y 06/05/22; Placement Magruerite Escamilla Hughes, S amantha J, Time: 233; Catheter R.N. R.N. Size: 18 G; Orientation: Left; Location: Antecubital; Site Prep: Chlorhexidine (Preferred); Technique: Anatomical landmarks; Insertion Attempts: 1; Removal Date: 06/07/22; Removal Time: 1400; Removal Reason: Patient discharged Peripheral IV Placement Date: 06/05/222332 by 06/07/22 0148 b y 06/05/22; Placement Marguerite Escamilla Ngov, Tie ng Time: 233; Existing LDA R.N. Placed by: Other hospital; Catheter Size: 18 G; Orientation: Right; Location: Antecubital; Site Prep: Chlorhexidine (Preferred); Technique: Anatomical landmarks; Removal Date: 06/07/22; Removal Time: 0148; Removal Reason: Occluded ETT Placement Date: 06/06/22 123 by 06/06/22 1306 b y 06/06/22; Placement José Luis Jauregui APRN, Beyai, Saikou, Time: 1238 (created via ARMOND SRERANO APRN procedure documentation); Mask Ventilation: Easy mask; Type: Standard ETT; Single Lumen Tube Size: 7 mm; Cuffed: Yes; Location: Oral; Grade View: Grade 1; Insertion Attempts: 1; Placement Verification: Bilateral breath sounds, Positive ETCO2, Symmetrical chest wall movement; Removal Date: 06/06/22; Removal Time: 1306 documented in this encounter Social History Tobacco [...] How often do you attend jew or yazdanism More than 4 time s [...] encounter OR Notes Anesthesia Postprocedure Evaluation - José Luis Jauregui APRN, ZACH - 06/06/2022 1:15 PM CDT Patient: David Castro Procedure Summary Date: 06/06/22 Room / Location: Division of Gastroenterology in [place], [place] Anesthesia Start: 1229 Anesthesia Stop: 1312 Procedure: EGD (ESOPHAGEALGASTRODUODENOSCOPY) Diagnosis: Scheduled Providers: José Luis Jauregui APRN, CRNA Responsible Provider: José Luis Jauregui APRN, CRNA Anesthesia Type: general ASA Status: 3 Anesthesia Type: general Last vitals Vitals Value Taken Time BP 117/68 06/06/22 1313 Temp 36.3 ??C 06/06/22 1313 Pulse 78 06/06/22 1315 Resp 15 06/06/22 1315 SpO2 99 % 06/06/22 1315 Vitals shown include unvalidated device data. Please [...] Hydration status: euvolemic Anesthesia Procedure Notes - José Luis Jauregui APRN, CRNA - 06/06/2022 12:38 PM CDT Associated Order(s): Airway Airway Date/Time: 06/06/2022 12:38 PM Performed by: José Luis Jauregui APRN, CRNA Authorized by: José Luis Jauregui APRN, CRNA Patient location during procedure: OR / Procedure Area PROCEDURE DETAILS: Mask difficulty assessment: easy mask Final airway type: video laryngoscope Laryngeal Manipulation: no Final best view of glottic structures - Cormack/Lehane Score: grade 1 ETT location: oral VL device: glide scope Casey scope blade size: 4 Adult tube size: 7 Adult ETT distance at teeth/gum: 22 Oral tube type: standard ETT Cuffed: yes Number of attempt to successful placement: 1 Airway confirmation: bilateral breath sounds, positive ETCO2 and bilateral chest rise Other previous techniques attempted: none PRE PROCEDURE DETAILS: Pre evaluation for airway management: procedure Urgency: elective Preop assessment of probable difficulty: no difficulty anticipated Preoxygenation: bag valve mask SEDATION / ANESTHESIA Anesthesia method: anesthesia POST PROCEDURE DETAILS: Procedure outcome: successful Airway event: no complications Anesthesia Preprocedure Evaluation - José Luis Jauregui APRN, CRNA - 06/06/2022 12:13 PM CDT Preprocedure Anesthesia & H&P Assessment Procedure Summary Date/Time: 06/06/22 1200 Scheduled providers: José Luis Jauregui APRN, CRNA Procedure: EGD (ESOPHAGEALGASTRODUODENOSCOPY) Location: Division of Gastroenterology in [place], [place] Pertinent components of the patient's history [...] Neck ROM: Full Mouth Opening: >3 cm Cardiovascular Rhythm: Regular Rate: Normal Cardiovascular Assessment: cardiovascular normal Functional Capacity: >4 METS Pulmonary Pulmonary Assessment: Clear General / Constitutional Constitutional Assessment: Normal General State of Health:: calm Neurological Neurologic Assessment:??alert Dental Dental plates permanent ASSESSMENT / PLAN ANESTHESIA PLAN ASA: 3 Anesthesia Plan: general Patient seen and allergies reviewed, anesthesia plan and risks discussed directly with patient /legal guardian or through an bias binding folder. Risks/Benefits/Alternatives of Blood transfusion discussed with patient [...] Support Nutrition Ankita Smyth M.D., Ph.D. [address] [place] [phone] Ace Morris, RDN, LD [address] [place] [phone] 06/20/2022 Comprehensive Visit Gastroenterology and [facility] Hep[facility]ology Maurice Mendes M.D., Ph.D. [address] [place] [phone] 06/22/2022 Appointment Radiology Maurice Smyth M.D., Ph.D. [address] [place] [phone] 07/12/2022 Clinical Communication Admitting/Central Scheduling 08/31/2022 Appointment Gastroenterology and [facility] Hepatology Maurice Mendes M.D., Ph.D. [address] [place] [phone] 09/01/2022 Appointment Gastroenterology and [facility] Hepatology Maurice Mendes M.D., Ph.D. [address] [place] [phone] 09/05/2022 Appointment Gastroenterology and [facility] Hepatology Maurice Mendes M.D., Ph.D. [address] [place] [phone] documented as of this encounter Procedures Procedure Name Priority Date/Time Associated Comments Diagnosis LDA ANE ENDOTRACHEAL Routine 06/06/2022 12:38 Res ults for this AIRWAY PM CDT procedure are i n the results section. documented in this encounter Results LDA ANE ENDOTRACHEAL AIRWAY (06/06/2022 12:38 PM CDT) Narrative Beyai, SaikDWIGHT griffin CRNA - 06/06/2022 1 2:38 PM CDT [...] ETT location: oral VL device: glide scope Casey scope blade size: 4 Adult tube size: [...] José Luis Jauregui APRN, CRNA ANESTHESIA ORDERABLES documented in this encounter Visit Diagnoses Not on filedocumented in this encounter Administered Medications Inactive Administered Medications - up to 3 most recent administrations Medication Order MAR Action Action Date Dose Rate Site fentaNYL injection (SUBLIMAZE) Given 06/06/2022 12:36 PM CDT 50 mcg intravenous, As needed, Starting on Mon06/06/22 at 1236, Anesthesia Intra-op lactated ringers New Bag 06/06/2022 12:55 PM CDT intravenous, Continuous Infusion: Per Instructions PRN, Starting on Mon06/06/22 at 1236, Anesthesia Intra-op New Bag 06/06/2022 12:29 PM CDT lidocaine (PF) (cardiac) injection Given 06/06/2022 12:36 PM CDT 60 mg intravenous, As needed, Starting on Mon06/06/22 at 1236, Anesthesia Intra-op ondansetron (PF) injection (ZOFRAN) Given 06/06/2022 12:43 PM CDT 4 mg intravenous, As needed, Starting on Mon06/06/22 at 1243, Anesthesia Intra-op phenylephrine injection Given 06/06/2022 12:56 PM CDT 200 mcg intravenous, As needed, Starting on Mon06/06/22 at 1256, Anesthesia Intra-op propofol 10 mg/mL infusion New Bag 06/06/2022 12:38 100 mcg/kg/min 42.72 mL/hr (DIPRIVAN) PM CDT intravenous, Continuous Infusion: Per Instructions PRN, Starting on Mon06/06/22 at 1238, Anesthesia Intra-op propofoL injection (DIPRIVAN) Given 06/06/2022 12:36 PM CDT 100 mg intravenous, As needed, Starting on Mon06/06/22 at 1236, Anesthesia Intra-op succinylcholine (PF) injection (ANECTINE ) Given 06/06/2022 12:36 PM CDT 100 mg intravenous, As needed, Starting on Mon06/06/22 at 1236, Anesthesia Intra-op documented in this encounter Care Teams Client Professional Relationship Specialty Start Date End Date Elsewhere, Pcp PCP - General Internal Medicine 06/05/22 documented as of this encounter
--- OUTSIDE RECORDS SUMMARY | 2022-06-14 06:21 | XMS_ITS | Encounter Summary ---
:1940 Author Organization [facility] Address [address] [place] [address] Care Team Providers Name Role Phone Unavailable Primary Care Provider Unavailable Reason for Visit Auth/Cert Specialty Diagnoses / Procedures Referred By Contact Refer red To Contact Diagnoses Hematemesis Hematemesis on Coumadin Procedures DIR Referral ID Status Reason Start Date Expiration Date Visits Requ ested Visits Authorized [id number] 1 1 Encounter Details Date Type Department Care Team Description 12/09/2021 - Hospital Encounter [facility] Kong Coates M.D. [address] [place] [phone] [facility] [address] [place] [phone] (Primary Dx) [facility], Fourth Floor [address] [place] [address] Social History Tobacco Use Types Packs/Day [...] How often do you attend druze or restorationist More than 4 time s per year 04/11/2022 services? Do you belong to any clubs or organizations Yes 04/11/2022 such as druze groups, unions, fraternal or [...] care provider on file. Discharge Provider Team: [facility] Internal Medicine ([facility]) RST Medicine 8 ([facility]) Primary Care Provider Phone Number: None [...] B 02 Admitting/Central Scheduling 12/28/2021 8:20 AM OK [facility] 809 Radiology 12/28/2021 1:30 PM Peng Tinajero M.D. Pulmonary Medicine For appointment details refer to your Patient Appointment Guide. TEST RESULTS PENDING AT DISCHARGE Pending Labs None DETAILS OF HOSPITAL STAY REASON FOR ADMISSION Hematemesis HOSPITAL COURSE Mr. 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 Is very active. He has a [...] 1967, incl last a Heller's procedure at [facility] 11/2020. On 12/09, he presented via EMS to [facility] Emergency Department with concerns of weaknessand coffee ground emesis. Apparently EMS noted ice cream container worth of reddish vomit that they thought was blood. SBP was90s but improved to 120s with 1.5 L IVF. He was not transfused at the OSH ED as Hb was 12.2. He was given Kcentra (INR was 1.4) and 40 mg IV pantoprazole and directly admitted to [facility],Medicine 8 service for ongoing management. On [...] Mr. David Castro today and provided counseling [id number] at bedside. I personally spent over half of a total 35 minutes in counseling and discussion with the patient and in coordination of care as described above to facilitate the hospital discharge. Discharge instructions were provided to the patient and caregiver(s). documented in this encounter Discharge Instructions Discharge InstructionsBernice Pisano - 12/10/2021 7:26 AM CDT You were discharged from the [facility] Medicine 8 ([facility]) Service. Please identify this service name if you call with questions after hospitalization. AppointmentsBernice Pisano - 12/10/2021 11:04 AM CDT Take a copy of this after visit summary to your appointment(s). DIVINA Van December 14, 2021 - Monday --10:05 AM - Hospital Follow-Up with Dr. Harish Silver, at [facility] Address: [address] [place] [address] DIVINA Van [id number] If you have any questions, concerns, or need to reschedule please call [phone] documented in this encounter Medications at Time of Discharge Medication Sig Dispensed Refills Start Date End Date allopurinol (ZYLOPRIM) Take 100 mg by mouth 0 100 mg tablet every morning. calcitRIOL (ROCALTROL) Take 1 capsule by 0 2018 0.25 mcg capsule mouth 3 (three) times a week. Monday, Monday, Monday metoprolol tartrate Take 12.5 mg by mouth 0 (LOPRESSOR) 25 mg 2 (two) times a day. tablet multivitamin renal Take 1 tablet by mouth 30 tablet 0 12/08 failure (DIALYVITE) daily with dinner. 100-1 mg tablet torsemide (DEMADEX) 20 Take 1 tablet (20 mg 0 mg tablet total) by mouth daily. amoxicillin-pot Take 1 tablet (500 mg 16 [...] 3 (three) times a day before meals. omeprazole (PriLOSEC) Take 1 capsule (20 mg 0 06/06/[address] capsule total) by mouth 2 (two) times a day before breakfast and dinner. warfarin (COUMADIN) 2 1 mg on //Mon and 0 06/06/2022 mg tablet 2 mg on M/W/F/Sat. documented as of this encounter Progress Notes [...] about patient's nutritional care please contact pager [phone] on weekdays or [phone] on weekends/holidays. Nicole Mendez APRN, C.N.P., D.N.P. [...] has been staffed with Dr. Kennedy, Nephrology web development consultant. For questions or concerns, please contact Neph A ESRD pager at [phone]. Sherri Alarcon R.R.T., L.R.T. - 12/11/2021 1:41 [...] male who was recently discharged from our [address] service following an admission for a [...] team's plan of care. Counseling was provided [id number] at bedside regarding the plan of care [...] inpatient: [facility]02[facility] Home medications: ?? Held: warfarin, PRN [...] pending hospital course Kasia Ridley PharmCodie, R.Ph. [phone] Maria G Adame P.A.-C., M.S. - 12/10/2021 7:10 AM CDT [facility] Medicine 8 ([facility]) Progress Note SUBJECTIVE Interval history: Patient [...] / PLAN Mr. Castro is hospitalized on [place] [address] ([facility]) for evaluation and management of Hematemesis. 81 year old male admitted for weakness and coffee-ground emesis. Recently discharged [facility] after 6day admission for right [...] 1967, incl last a Heller's procedure at [facility] 11/2020), HTN, and ELENI on CPAP. EMS was called and he was taken to [facility] ED. Apparently EMS noted ice cream container worth of reddish vomit that they thought was blood. SBP was 90s but improved to 120s with 1.5 L IVF. He was not transfused at the OSH ED as Hb was 12.2. He was given Kcentra (INR was 1.4) and 40 mg IV pantoprazole and directly admitted to [facility] 8. #1 Weakness, generalized #2 Dark colored [...] care was discussed with Dr. Lozoya, HIM web development consultant. Counseling was provided [id number] at bedside regarding the plan of care as stated above. I personally spent over half of a total 35 minutes in counseling and coordination of care as documented above. Maria G Adame P.A.-C., M.S. Medicine [phone] - [phone] Addendum: EGD showed stasis ulcer, and brownish [...] Status Comment 12/09/2021 2:28 PM Per 12/08 [facility] discharge AVS Taking? Last Dose Informant Start [...] and 2 mg on ///Mon. Matthew Giron PharmNhung., R.Ph. documented in this encounter H&P Notes Lorne Galloway M.B., Ch.B. - 12/09/2021 7:19 PM CDT [facility] Medicine 8 ([facility]) Admission Note SUBJECTIVE CHIEF COMPLAINT Coffee ground emesis x6 last night HISTORY OF PRESENT ILLNESS Mr. David Castro is a 81 y.o. male who [facility] only yesterday having been [...] 1968, incl last a Heller's procedure at [facility] 11/2020), HTN, and ELENI on CPAP. [...] called EMS and he was taken to [facility] ED. Apparently EMS did take [...] is not in the electronic chart. No extra-CHAIRMAN CEO infectious source was found and he has had no further CHAIRMAN CEO infection. -?LP done apparently here for low [...] he can only swallow soup. -NPO at AK in case of EGD in am. Tubes/lines: PIV x2 ordered. VTE prophylaxis: SCD only given bleeding. Code status: Full Code, discussed. Baseline Mobility: BMAT Level 4 (Able to stand and walk) Disposition: Home Counseling was provided [id number] at bedside regarding the plan of care [...] was reviewed with Dr. Kennedy, Nephrology A web development consultant For questions or concerns, please page the Nephrology A SUPERVISOR SPEECH/PA pager ([phone]). Associated attestation - Yamileth Kennedy M.D., Ph.D. [...] transportation. Education on diet recommendations provided by splicing machine operator. VSS. Belongings sent with patient. Problem: PAIN [...] Mr. 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 Is very active. He has a [...] 1967, incl last a Heller's procedure at [facility] 11/2020. On 12/09, he presented via EMS to [facility] Emergency Department with concerns of weaknessand coffee ground emesis. Apparently EMS noted ice cream container worth of reddish vomit that they thought was blood. SBP was90s but improved to 120s with 1.5 L IVF. He was not transfused at the OSH ED as Hb was 12.2. He was given Kcentra (INR was 1.4) and 40 mg IV pantoprazole and directly admitted to [facility] 8 service for ongoing management. On [...] Nutrition Ankita Smyth M.D., Ph.D. [address] [place] [phone] Ace Morris, JANY, LD [address] [place] [phone] 06/20/2022 Comprehensive Visit Gastroenterology and [facility] Hepatology Maurice Mendes M.D., Ph.D. [address] [place] [phone] 06/22/2022 Appointment Radiology Maurice Smyth M.D., Ph.D. [address] [place] [phone] 07/12/2022 Clinical Communication Admitting/Central Scheduling 08/31/2022 Appointment Gastroenterology and Libra Hepattanya Mendes M.D., Ph.D. [address] [place] [phone] 09/01/2022 Appointment Gastroenterology and [facility] Hepatology Maurice Mendes M.D., Ph.D. [address] [place] [address] [place] [phone] 09/05/2022 Appointment Gastroenterology and [facility] Hepatology Maurice Mendes M.D., Ph.D. [address] [place] [phone] documented as of this encounter Procedures Procedure [...] (12/11/2021 7:30 AM CDT) [facility] Time Signature Potassium, S 3.5 (L) [...] 12/11/2021 DTL Black/ mL/min/BSA 9:18 AM CDT Vincentian Comment: ----ADDITIONAL INFORMATION---- Estimated GFR calculated using [...] M.S. LAB BLOOD ADD-ON Performing Organization Address City/[facility] Phon e Number [facility] - 200 [place], [place] [address] [facility] [place] [address] Laboratories-[facility] 200 [facility] (ABNORMAL) CBC without Differential (12/11/2021 7:30 AM CDT) [facility] gist Method Time Signature Hemoglobin 8.8 [...] Organization Address City/State/ZIP Code Phon e Number [facility] - [address] [place], [place] [address] [place] [address] [address] (ABNORMAL) Hemoglobin (12/10/2021 4:17 PM CDT) P athologist Signature Hemoglobin 10.7 (L) 13.2 - 16.6 12/10/2021 DTL g/dL 5:00 PM CDT Specimen Anatomical Collection Method Collection Time Receive d Time (Source) Location / / Volume Laterality Blood (Blood, 12/10/2021 4:17 PM 12/11/19 4:49 Venous) CDT PM CDT Maria G Adame P.A.-C., M.S. LAB BLOOD ADD-ON Performing Organization Address [facility] Phon e Number [facility] - [address] [place], [place] [address] [place] [address] Laboratories-[address] Upper GI Endoscopy (12/10/2021 11:53 AM CDT) Specimen (Source) Anatomical Collection Method Collection Time Re ceived Time Location / / Volume Laterality 12/10/2021 11:53 AM CDT Impressions [facility] - 12/10/2021 4:10 PM CDT Post-op [...] bulb. ? - No specimens collected. Narrative [employer] - 12/10/2021 4:10 PM CDT Saul 6 GI GI Patient Name: David Castro Date of : 1940 Age: 81 Gender: Male Procedure Date: 12/10/2021 Procedure: ? Upper GI endoscopy Providers: ? Nabraxton Flannery MD, Connor Potter MD ? (Fe [...] No immedia te complications. Sedation: ? General credit collection specialist Participation: I was present a nd participated during the entire ? pro cedure, including non-coughlin portions. Toby Flannery MD 12/10/2021 3:22:32 PM This report has been signed electronical ly. Number of Addenda: 0 Lorne Sanchez, Ch.B. GI PROCEDURE ORDERABLES Performing Organization Address City/[facility]/ZIP Code Phon e Number [facility] NA (ABNORMAL) Alkaline Phosphatase (12/10/2021 7:33 AM CDT) athologist Signature Alkaline 229 (H) 40 - 129 12/10/2021 DTL Phosphatase, S U/L 1:14 PM CDT Specimen Anatomical Collection Method Collection Time Receive d Time (Source) Location / / Volume Laterality Blood (Blood, 12/10/2021 7:33 AM 12/11/19 Venous) CDT 12:43 PM CDT Maria G Adame P.A.-C., M.S. LAB BLOOD ADD-ON Performing Organization Address City/[facility] Code Phon e Number [facility] - [address] [place], [place] [address] [place] [address] (ABNORMAL) GGT (Gamma-Glutamyltransferase) (12/10/2021 7:33 AM CDT) Component Value Ref Test Analysis Performed At [facility] Range Method Time Signature Gamma 121 (H) 8 - 61 12/10/2021 DTL Glutamyltransferase U/L 1:14 PM CDT (GGT), S Specimen Anatomical Collection Method Collection Time Receive d Time (Source) Location / / Volume Laterality Blood (Blood, 12/10/2021 7:33 AM 12/11/19 Venous) CDT 12:43 PM CDT Maria G Adame P.A.-C., M.S. LAB BLOOD ADD-ON Performing Organization Address City/State/[facility] Code Phon e Number [facility] - [address] [place], [place] [address] [place] [address] [facility]-[address] Phosphorus Inorganic (12/10/2021 7:33 AM CDT) P athologist Signature Phosphorus 3.4 2.5 - 4.5 12/10/2021 DT (Inorganic), S mg/dL 9:20 AM CDT Specimen Anatomical Collection Method Collection Time Receive d Time (Source) Location / / Volume Laterality Blood (Blood, 12/10/2021 7:33 AM 12/11/19 8:15 Venous) CDT AM CDT Maria G Adame P.A.-C., M.S. LAB BLOOD ADD-ON Performing Organization Address City/State/[facility] Code Phon e Number [facility] - [address] [place], [place] [address] (ABNORMAL) CBC without Differential (12/10/2021 7:33 AM CDT) [facility] Method Time Signature Hemoglobin 10.7 (L) 13.2 [...] 7:54 Venous) CDT AM CDT Lorne Sanchez, B. LAB BLOOD ADD-ON Performing Organization Address City/State/ZIP Code Phon e Number [facility] - [address] [place] [address] [facility] [place] [place] [address] Laboratories-[facility] 200 [facility] (ABNORMAL) Basic Metabolic Panel (12/10/2021 7:33 [...] 12/10/2021 DTL Black/ mL/min/BSA 8:31 AM CDT Vincentian Comment: ----ADDITIONAL INFORMATION---- Estimated GFR calculated using [...] Organization Address City/State/ZIP Code Phon e Number [facility] - [address] [place], [place] [address] [facility] [place] [place] [address] Laboratories-[facility] 200 [facility] SARS Coronavirus 2, PCR Rapid, V (12/09/2021 7:48 PM CDT) [facility] Method Time Signature SARS CoV-2, Undetected Undetected 12/09/2021 STMA PCR, Rapid, V 8:26 PM CDT Comment: ----ADDITIONAL INFORMATION---- This RT-PCR test was performed using the Penny SARS-CoV-2 and Influenza A/B Reagent assay from [employer], which has received Emergency Use Authori zation(EUA) by the U.S. Food and Drug Administration . Fact sheets for this Emergency Use Autho rization (EUA) assay can be found at the following link s: For Healthcare Providers: https://www.fda.gov/media/051676/downloa d For Patients: https://www.fda.gov/media/186533/downloa d SARS Coronavirus 2, Source, Rapid Swab, Nasopharynx 12/09/2021 8:00 PM CDT STMA Specimen Anatomical Collection Method Collection Time Receive d Time (Source) Location / / Volume Laterality Varies 12/09/2021 7:48 PM 2 7:59 CDT PM CDT Marlyn Benson P.A.-C. LAB MICROBIOLOGY - GENERAL ORDERABLES Performing Organization Address City/[facility]/ZIP [facility] Phon e Number [facility] - [address] [place], [place] [address] [place] [address] Laboratories-[facility] 200 [facility] ECG 12 Lead (12/09/2021 3:35 PM CDT) P athologist Signature Ventricular Rate 88 BPM MUSE ECG/Min QRSD Interval 124 ms MUSE QT Interval 398 ms MUSE QTC Interval 481 ms MUSE R [place] 0 degrees MUSE T Wave [place] -1 degrees MUSE Specimen Anatomical Collection Method [...] Sanchez, Ch.B. ECG ORDERABLES Performing Organization Address City/[facility]/ZIP Code Phon e Number MUSE MUSE NA Type and Screen (with reflex Antibody ID) (12/09/2021 3:15 PM CDT) Patholo gist Method Time Signature ABORh O Pos Not 12/09/2021 STRM applicable 4:06 PM CDT Antibody Negative Negative 12/09/2021 STRM Screen 4:17 PM CDT Type & Screen 12/12/2021 12/09/2021 STRM Expiration 23:59 4:06 PM CDT Testing [place] DEFAULT 12/09/2021 STRM Location 3:24 PM CDT Specimen Anatomical Collection Method Collection Time Receive d Time (Source) Location / / Volume Laterality Blood (Blood, 12/09/2021 3:15 PM 12/10/19 3:24 Venous) CDT PM CDT Lorne Sanchez, B. LAB BLOOD BANK TEST ORDERABL ES Performing Organization Address City/State/ZIP Code Phon e Number [facility] - [address] [place], [place] [address] [facility] [place] [address] Laboratories-[facility] [address] (ABNORMAL) Basic Metabolic Panel [...] 12/09/2021 DTL Black/ mL/min/BSA 4:43 PM CDT Vincentian Comment: ----ADDITIONAL INFORMATION---- Estimated GFR calculated using [...] 4:06 Venous) CDT PM CDT Lorne Sanchez, ChBialeyB. LAB BLOOD ADD-ON Performing Organization Address City/State/ZIP Code Phon e Number [facility] - [address] [place], [place] [address] [facility] [place] [place] [address] Laboratories-[facility] [address] [facility] (ABNORMAL) CBC without Differential (12/09/2021 3:14 PM CDT) [facility] gist Method Time Signature Hemoglobin 11.5 [...] Organization Address City/State/ZIP Code Phon e Number [facility] - [address] [place], [place] [address] [facility] [place] [address] Laboratories-[facility] [address] documented in this encounter Visit Diagnoses Diagnosis Hematemesis - Primary Hematemesis Atrial Fibrillation Paroxysmal (HCC) 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) Anticoagulant Treatm ent Hypoalbuminemia Dialysis Peritoneal [...] mL/hr 75 mL/hr, intravenous, Continuous, Starting on Alyssa 12/09/21 at 2045, For 13 hours gentamicin 0.1 [...] RBaileyN.) 0958 (Given - Provider: Janeth Nicole RNicholas) 100 mg, oral, Daily, First dose on Mon12/10/21 at 0900 amoxicillin-pot clavulanate 500-125 mg per tablet 500 mg (AU GMENTIN) 0806 (Given - Provider: Janeth Nicole R.N.) 0958 (Given - Provider: Suzy RandhawaNBailey) 500 mg (1 tablet), oral, Every 24 [...] RBaileyN.) 0803 (Given - Provider: Janeth Nicole R.N.)1952 [...] 40 mg (PROTONIX) 1614 (Given - Provider: Suzy RandhawaN.) 0615 (Given - Provider: Randee Gandhi R.N.) [...] NPO all day and wanted to eat) 0615 (Given - Provider: Randee Gandhi RNicholas) 1 g, oral, 2 times daily before breakfas t and dinner, First dose (after last modification) on Mon12/10/21 at 1630, For 14 days, Administer on an empty stomach (1 hour before or 2 hours after eating). torsemide tablet 20 mg (DEMADEX) 58 (Given - Provider: Janeth Nicole R.N.) 20 mg, oral, Daily, First dose on Mon12/11/21 at 0900, HOLD for SBP <100 Continuous Medication Order 12/09/2021 12/10/2021 12/11/2021 D5W and NaCl 0.45 % infusion () 0 (New Bag - Provider: Cecelia Winkler RBaileyNBailey) 1052 (Stopped - Provider: Janeth Nicole R.N.) [...]
--- OUTSIDE RECORDS SUMMARY | 2022-06-14 06:21 | XMS_ITS | Encounter Summary ---
:1940 Author Organization [facility] Address [address] [place] [address] Care Team Providers Name Role Phone Unavailable Primary Care Provider Unavailable Encounter Details Date Type Department Care Team Description 12/09/[address] [facility], Gurpreet Adame, [facility], P.A.Farhan, M.S . [facility], [address] [place] [address] Third [place], [place] [address] [place] [phone] [place], [place] [phone] (Work) [phone] Social History Tobacco Use Types Packs/Day Years [...] How often do you attend orthodoxy or restoration More than 4 time s [...] Support Nutrition Ankita Smyth M.D., Ph.D. [address] [place] [phone] Ace Morris, ALONAN, LD [address] [place] [phone] 06/20/2022 Comprehensive Visit Gastroenterology and [facility], Hepatology Maurice Mendes M.D., Ph.D. [address] [place] [phone] 06/22/2022 Appointment Radiology Maurice Smyth M.D., Ph.D. [address] [place] [phone] 07/12/2022 Clinical Communication Admitting/Central Scheduling 08/31/2022 Appointment Gastroenterology and Libra Hepatology Maurice Mendes M.D., Ph.D. [address] [place] [phone] 09/01/2022 Appointment Gastroenterology and Libra Hepatology Maurice Mendes M.D., Ph.D. [address] [place] [phone] 09/05/2022 Appointment Gastroenterology and Libra Hepatology Maurice Mendes M.D., Ph.D. [address] [place] [phone] documented as of this encounter Visit Diagnoses Not on filedocumented in this encounter
--- OUTSIDE RECORDS SUMMARY | 2022-06-14 06:21 | XMS_ITS | Encounter Summary ---
:1940 Author Organization [facility] Address [address] [place] [address] Care Team Providers Name Role Phone Unavailable Primary Care Provider Unavailable Reason for Visit Auth/Cert Specialty Diagnoses / Procedures Referred By Contact Refer red To Contact Diagnoses Hematemesis Hematemesis on Coumadin Procedures DIR Referral ID Status Reason Start Date Expiration Date Visits Requ ested Visits Authorized [id number] 1 1 Encounter Details Date Type Department Care Team Description 12/10/2021 Anesthesia Event Division of Gastroenterology Jamel Powers in [facility] bret Shah FAMILY PRESERVATION WORKER, PROCUREMENT TECHNICIAN, [address] [place] [address] [facility] [phone] [place] [address] Anesthesia Record Procedure Summary Procedure Name Responsible Anesthesia Start Anesthesia Stop Time Anesthesiologist Time EGD Jamel Powers APRN, 12/10/21 1210 2 1256 ([facility]STRODU [facility]) Events Date Time Event Comment 12/10/2021 [...] h andoff to the receiving staff during [facility] we 1. Identified the patient [...] Roesner, Justin C, Time: 1218 (created via FAMILY PRESERVATION WORKER, ZACH, D.N.P. FAMILY PRESERVATION WORKER, PROCUREMENT TECHNICIAN, DNAP procedure documentation); Mask Ventilation: Not attempted; [...] How often do you attend adventist or protestant More than 4 time s [...] Postprocedure Evaluation - Jamel Powers APRN, CRNA, DNAKi - 12/10/2021 7:23 PM CDT Patient: David Castro Procedure Summary Date: 12/10/21 Room / Location: Division of Gastroenterology in [place], [place] Anesthesia Start: 1210 Anesthesia Stop: 1256 Procedure: EGD (ESOPHAGEALGASTRODUODENOSCOPY) Diagnosis: Scheduled Providers: Toby Banerjee M.B.B.S. Responsible Provider: Jamel Powers APRN, CRNA, DNAKi Anesthesia Type: general ASA Status: 3 Anesthesia [...] ETT location: oral VL device: glide scope [place] scope blade size: 3 Adult tube size: [...] EGD (ESOPHAGEALGASTRODUODENOSCOPY) Location: Division of Gastroenterology in [place], [place] Pertinent components of the patient's history [...] with patient /legal guardian or through an flat folding machine operator. Risks/Benefits/Alternatives of Blood transfusion discussed with patient [...] Support Nutrition Ankita Smyth M.D., Ph.D. [address] [place] [phone] Ace Morris, ALONAN, LD [address] [place] [phone] 06/20/2022 Comprehensive Visit Gastroenterology and [facility] Hepatology Maurice Mendes M.D., Ph.D. [address] [place] [phone] 06/22/2022 Appointment Radiology Maurice Smyth M.D., Ph.D. [address] [place] [phone] 07/12/2022 Clinical Communication Admitting/Central Scheduling 08/31/2022 Appointment Gastroenterology and [facility] Hepatology Maurice Mendes M.D., Ph.D. [address] [place] [phone] 09/01/2022 Appointment Gastroenterology and [facility] Hepatology Maurice Mendes M.D., Ph.D. [address] [place] [phone] 09/05/2022 Appointment Gastroenterology and Libra Hepatology Maurice Mendes M.D., Ph.D. [address] [place] [address] documented as of this encounter Procedures Procedure [...] ETT location: oral VL device: glide scope [place] scope blade size: 3 Adult tube size: [...] no complications ATTESTATION STATEMENT Bassam Hunt APRN, PROCUREMENT TECHNICIAN, D.N.P. ANESTHESIA ORDERA BLES documented in this [...]
--- OUTSIDE RECORDS SUMMARY | 2022-06-14 06:21 | XMS_ITS | Encounter Summary ---
:1940 Author Organization [facility] Address [address] [place] [address] Care Team Providers Name Role Phone Unavailable [...] How often do you attend yazidi or mandaeism More than 4 time s [...] Support Nutrition Ankita Smyth M.D., Ph.D. [address] [place] [phone] Ace Morris, RDN, LD [address] [place] [address] 06/20/2022 Comprehensive Visit Gastroenterology and Libra Hepatology Maurice Mendes M.D., Ph.D. [address] [place] [phone] 06/22/2022 Appointment Radiology Maurice Smyth M.D., Ph.D. [address] [place] [phone] 07/12/2022 Clinical Communication Admitting/Central Scheduling 08/31/2022 Appointment Gastroenterology and Libra Hepatology Maurice Mednes M.D., Ph.D. [address] [place] [phone] 09/01/2022 Appointment Gastroenterology and Libra Hepatology Maurice Mendes M.D., Ph.D. [address] [place] [phone] 09/05/2022 Appointment Gastroenterology and Libra Hepatology Maurice Mendes M.D., Ph.D. [address] [place] [phone] documented as of this encounter Procedures Procedure [...]
--- OUTSIDE RECORDS SUMMARY | 2022-06-14 06:21 | XMS_ITS | Encounter Summary ---
:1940 Author Organization [facility] Address [address] [place] [address] Care Team Providers Name Role Phone Unavailable Primary Care Provider Unavailable Reason for Visit MRI/CAT/PET Scan (Routine) - Modified Order Specialty Diagnoses / Procedures Referred By Contact Refer red To Contact Radiology Diagnoses Empyema Pleural (HCC) Maria G Adame P.A.-C., [facility] Procedures CT Chest without IV Contrast CT Chest with IV Contrast . [address] [place] [phone] Referral ID Status Reason Start Date Expiration Date Visits V isits Requested Authorized [id number] Modified 12/07/2021 12/07/2022 1 1 Order Encounter Details Date Type Department Care Team Description 12/28/2021 Hospital Encounter Department of Maria G Adame, Empyem a Pleural (HCC) Radiology, Danny Palmer, .[facility], in [address] [place] [address] [place] [phone] [place], [place] [phone] (Work) [phone] Social History Tobacco Use Types Packs/Day Years [...] or relatives? How often do you attend yarsanism or mormon More than 4 time s per year 04/11/2022 services? Do you belong to any clubs or organizations Yes 04/11/2022 such as yarsanism groups, unions, [employer] or athletic groups, or school groups? [...] 0 mg tablet total) by mouth daily. gentamicin (GARAMYCIN) Apply 1 application 15 g 0 04/08/202103/02/2022 0.1 % cream topically daily. Apply to PD site hydrALAZINE Take 1 tablet (10 mg 0 12/08/2021 (APRESOLINE) 10 mg total) by mouth 3 tablet (three) times a day. Hold medication isosorbide dinitrate Take 0.5 tablets (2.5 0 /2 03/02/2022 (ISORDIL) 5 mg tablet mg total) by mouth 3 (three) times a day before meals. omeprazole (PriLOSEC) Take 1 capsule (20 mg 0 06/06/[address] capsule total) by mouth 2 (two) times a day before breakfast and dinner. warfarin (COUMADIN) 2 1 mg on //Mon and 0 06/06/2022 mg tablet 2 mg on ///Mon. documented as of this encounter Plan of Treatment Upcoming Encounters Date Type Specialty Care Team Description 06/16/2022 Clinical Support Nutrition Ankita Smyth M.D., Ph.D. [address] [place] [phone] Ace Morris, RDN, LD [address] [place] [phone] 06/20/2022 Comprehensive Visit Gastroenterology and Libra, Hepatology Muarice Mendes M.D., Ph.D. [address] [place] [phone] 06/22/2022 Appointment Radiology Maurice Smyth M.D., Ph.D. [address] [place] [phone] 07/12/2022 Clinical Communication Admitting/Central Scheduling 08/31/2022 Appointment Gastroenterology and Libra Hepatology Maurice Mendes M.D., Ph.D. [address] [place] [phone] 09/01/2022 Appointment Gastroenterology and Libra Hepatology Maurice Mendes M.D., Ph.D. [address] [place] [phone] 09/05/2022 Appointment Gastroenterology and Libra Hepatology Maurice Mendes M.D., Ph.D. [address] [place] [phone] documented as of this encounter Procedures Procedure [...]
--- OUTSIDE RECORDS SUMMARY | 2022-06-14 06:21 | XMS_ITS | Encounter Summary ---
:1940 Author Organization [facility] Address [address] [place] [address] Care Team Providers Name Role Phone Unavailable Primary Care Provider Unavailable Encounter Details Date Type Department Care Team Description 12/27/2021 Clinical Communication Visit Review in [place], [place] 200 [place], [place] [address] Social History Tobacco Use Types Packs/Day Years [...] How often do you attend shinto or taoism More than 4 time s [...] Support Nutrition Ankita Smyth M.D., Ph.D. [address] [place] [phone] Ace Morris, JANY, LD [address] [place] [phone] 06/20/2022 Comprehensive Visit Gastroenterology and Libra Hepatology Maurice Mendes M.D., Ph.D. [address] [place] [phone] 06/22/2022 Appointment Radiology Maurice Smyth M.D., Ph.D. [address] [place] [phone] 07/12/2022 Clinical Communication Admitting/Central Scheduling 08/31/2022 Appointment Gastroenterology and Libra Hepatology Maurice Mendes M.D., Ph.D. [address] [place] [phone] 09/01/2022 Appointment Gastroenterology and Libra Hepatology Maurice Mendes M.D., Ph.D. [address] [place] [phone] 09/05/2022 Appointment Gastroenterology and Libra Hepatology Maurice Mendes M.D., Ph.D. [address] [place] [phone] documented as of this encounter Visit Diagnoses Not on filedocumented in this encounter
--- OUTSIDE RECORDS SUMMARY | 2022-06-14 06:21 | XMS_ITS | Encounter Summary ---
:1940 Author Organization [facility] Address [address] [place] [address] Care Team Providers Name Role Phone Unavailable Primary Care Provider Unavailable Reason for Referral Outpatient (Routine) - Authorized Specialty Diagnoses / Referred By Contact Referred To Procedures Contact Gastroenterology and Diagnoses Vidhya Bergeron [facility] Hepatology Natalie QUINTANILLANDenisse, M.S.N. 200 [place] [address] Referral ID Status Reason Start Date Expiration Date Visits V isits Requested Authorized [id number] Authorized 12/13/2021 12/13/2022 1 1 Encounter Details Date Type Department Care Team Description 12/13/2021 Clinical Communication RST HIM Vidhya Goldstein [address] [place] [address] DWIGHT Guevara C.N.PBailey, [place], [place] M.S.N. [phone] [place] [phone] Social History Tobacco Use Types Packs/Day Years [...] How often do you attend uatsdin or sikh More than 4 time s per year 04/11/2022 services? Do you belong to any clubs or organizations Yes 04/11/2022 such as uatsdin groups, unions, fraternal or [...] Support Nutrition Ankita Smyth M.D., Ph.D. [address] [place] [phone] Ace Morris, ALONAN, LD [address] [place] [phone] 06/20/2022 Comprehensive Visit Gastroenterology and Libra, Hepatology Maurice Mendes M.D., Ph.D. [address] [place] [phone] 06/22/2022 Appointment Radiology Maurice Smyth M.D., Ph.D. [address] [place] [phone] 07/12/2022 Clinical Communication Admitting/Central Scheduling 08/31/2022 Appointment Gastroenterology and Libra Hepatology Maurice Mendes M.D., Ph.D. [address] [place] [phone] 09/01/2022 Appointment Gastroenterology dari Smyth Hepatology Maurice Mendes M.D., Ph.D. [address] [place] [phone] 09/05/2022 Appointment Gastroenterology dari Smyth Hepatology Maurice Mendes M.D., Ph.D. [address] [place] [phone] Scheduled Referrals Name Type Priority Associated Order Schedule Diagnoses Gastroenterology and Outpatient Routine Achalasia Expecte d: Hepatology - Esophageal Referral 11/20 consult (clinic) (Approximat e), Expires: 03/14/2023 documented as of this encounter Visit Diagnoses Diagnosis Achalasia - Primary documented in this encounter
--- OUTSIDE RECORDS SUMMARY | 2022-06-14 06:21 | XMS_ITS | Encounter Summary ---
:1940 Author Organization [facility] Address [address] [place] [address] Care Team Providers Name Role Phone Unavailable Primary Care Provider Unavailable Reason for Referral Outpatient (Routine) - Closed Specialty Diagnoses / Procedures Referred By Contact Refer red To Contact Pulmonary Medicine Diagnoses [facility]ema [facility]) [facility] Estela M.SBailey [address] [place] [phone] Referral ID Status Reason Start Date Expiration Date Visits Requ ested Visits Authorized [id number] Closed 12/07/2021 12/07/2022 1 1 Reason for Visit Outpatient (Routine) - Closed Specialty Diagnoses / Procedures Referred By Contact Refer red To Contact Pulmonary Medicine Diagnoses Empyema Pleural (HCC) Maria G Adame [facility] Estela, M.S. [address] [place] [phone] Referral ID Status Reason Start Date Expiration Date Visits Requ ested Visits Authorized [id number] Closed 12/07/2021 12/07/2022 1 1 Encounter Details Date Type Department Care Team Description 12/28/2021 Hospital Encounter Division of Lior, Peng Emerson Empyema Pleural Pulmonary Medicine [place] ([facility]) in [place], [address] [place], [place] [address] [place] [phone] [place], [place] [phone] (Work) [phone] Social History Tobacco Use Types Packs/Day Years [...] How often do you attend moravian or rastafarian More than 4 time s [...] He is a delightful 81-year-old man from [place], [place], who was recently hospitalized from 12/02 [...] have a follow-up CT scan done at [facility]. We discussed elevation of the head of the bed in detail, given his recurrent risk for aspiration pneumonia. He also is taking an antiacid pill and avoiding meals before he goes to bed. Given his achalasia, he is on a liquid diet. MARGIN CODE: E5, 50 minutes. Peng Tinajero M.D. CT CT Job ID: [id number] documented in this encounter Plan of Treatment Upcoming Encounters Date Type Specialty Care Team Description 06/16/2022 Clinical Support Nutrition Ankita Smyth M.D., Ph.D. [address] [place] [phone] Ace Morris, RDN, LD [address] [place] [phone] 06/20/2022 Comprehensive Visit Gastroenterology and Libra Hepatology Maurice Mendes M.D., Ph.D. [address] [place] [phone] 06/22/2022 Appointment Radiology Maurice Smyth M.D., Ph.D. [address] [place] [phone] 07/12/2022 Clinical Communication Admitting/Central Scheduling 08/31/2022 Appointment Gastroenterology and Libra Hepattanya Mendes M.D., Ph.D. [address] [place] [phone] 09/01/2022 Appointment Gastroenterology and Adrianna Smyth M.D., Ph.D. [address] [place] [phone] 09/05/2022 Appointment Gastroenterology and Adrianna Smyth M.D., Ph.D. [address] [place] [phone] Scheduled Referrals Name Type Priority Associated Order Schedule Diagnoses Pulmonary Medicine Outpatient Referral Routine Empyema Pleural Once for 1 - Pleural Disease (HCC) Occurrence s starting consult (clinic) 12/28/2021 until 12/28/2021 documented as of this encounter Visit Diagnoses Diagnosis Empyema Pleural (HCC) documented in this encounter
--- OUTSIDE RECORDS SUMMARY | 2022-06-14 06:21 | XMS_ITS | Encounter Summary ---
:1940 Author Organization [facility] Address [address] [place] [address] Care Team Providers Name Role Phone Unavailable Primary Care Provider Unavailable Encounter Details Date Type Department Care Team Description 12/08/2021 Orders Only Division of Nephrology and Turner, Lyric Leiva PRN, Hypertension, Mandaeism C.N.P. [place], in [place] [address] [address] [place], [place] [address] [place] [phone] [place] [phone] Social History Tobacco Use Types Packs/Day Years [...] How often do you attend zoroastrian or anglican More than 4 time s [...] Nutrition Ankita Smyth M.D., Ph.D. [address] [place] [phone] Ace Morris, ALONAN, LD [address] [place] [phone] 06/20/2022 Comprehensive Visit Gastroenterology and Libra Hepatology Maurice Mendes M.D., Ph.D. [address] [place] [phone] 06/22/2022 Appointment Radiology Maurice Smyth M.D., Ph.D. [address] [place] [phone] 07/12/2022 Clinical Communication Admitting/Central Scheduling 08/31/2022 Appointment Gastroenterology and Libra Hepatology Maurice Mendes M.D., Ph.D. [address] [place] [phone] 09/01/2022 Appointment Gastroenterology and Libra Hepatology Maurice Mendes M.D., Ph.D. [address] [place] [phone] 09/05/2022 Appointment Gastroenterology and Libra Hepatology Maurice Mendes M.D., Ph.D. [address] [place] [phone] documented as of this encounter Visit Diagnoses Not on filedocumented in this encounter Additional Health Concerns Infection Onset Date Last Indicated Resolved Time COVID19 Pending 12/09/2021 12/09/2021 12/09/2021 8:00 PM CDT COVID19 Pending 12/09/2021 12/09/2021 12/09/2021 8:26 PM CDT documented as of this encounter
--- OUTSIDE RECORDS SUMMARY | 2022-06-14 06:22 | XMS_ITS | Encounter Summary ---
:1940 Author Organization [facility] Address [address] [place] [address] Care Team Providers Name Role Phone Unavailable Primary Care Provider Unavailable Reason for Referral Outpatient (Routine) - Closed Specialty Diagnoses / Procedures Referred By Contact Refer red To Contact Diagnoses Achalasia Guillermo Werner M.D., [facility] Procedures EGD (EsophagoGastroDuodenoscopy) Restricted Ph.D. 200 [place] [address] Referral ID Status Reason Start Date Expiration Date Visits Requ ested Visits Authorized [id number] Closed 12/17/2018 12/17/2019 1 1 Reason for Visit Outpatient (Routine) - Closed Specialty Diagnoses / Procedures Referred By Contact Refer red To Contact Diagnoses Achalasia Guillermo Werner M.D., [facility] Procedures EGD (EsophagoGastroDuodenoscopy) Restricted Ph.D. 200 [place] [address] Referral ID Status Reason Start Date Expiration Date Visits Requ ested Visits Authorized [id number] Closed 12/17/2018 12/17/2019 1 1 Encounter Details Date Type Department Care Team Description 02/18/2019 Hospital Encounter Division of Guillermo Werner M.D., Ph.D. Achalasia Gastroenterology in [place] Blevins APRN, DIE TRIPPER [address] [place] [phone] [place], [place] [address] [place] [phone] Social History Tobacco Use Types Packs/Day [...] How often do you attend mandaen or yarsanism More than 4 time s per year 04/11/2022 services? Do you belong to any clubs or organizations Yes 04/11/2022 such as mandaen groups, unions, fra[employer] or athletic groups, or school groups? How [...] sent through Care Everywhere.Care Following Upper Endoscopy (Djiboutian)Types of Diets (Djiboutian)documented in this encounter Medications at Time of Discharge Medication Sig Dispensed Refills Start Date End Date allopurinol (ZYLOPRIM) 100 Take 100 mg by 0 11/09 mg tablet mouth every morning. calcitRIOL (ROCALTROL) Take 1 capsule by 0 2018 0.25 mcg capsule mouth 3 (three) times a week. Monday, Monday, Monday amLODIPine (NORVASC) 5 mg Take 5 mg [...] tablet mouth 3 (three) times a day. warfarin (COUMADIN) 2 mg 1 mg on //Sun 0 12/2006/06/2022 tablet and 2 mg on ///Sat. documented as of this encounter Plan of Treatment Upcoming Encounters Date Type Specialty Care Team Description 06/16/2022 Clinical Support Nutrition Ankita Smyth M.D., Ph.D. 200 [place] [phone] Ace Morris, ALONAN, LD [address] [place] [phone] 06/20/2022 Comprehensive Visit Gastroenterology and Libra, Hepatology Maurice Mendes M.D., Ph.D. 200 [place] [phone] 06/22/2022 Appointment Radiology Maurice Smyth M.D., Ph.D. [address] [place] [phone] 07/12/2022 Clinical Communication Admitting/Central Scheduling 08/31/2022 Appointment Gastroenterology and Libra, Hepatology Maurice Mendes M.D., Ph.D. [address] [place] [phone] 09/01/2022 Appointment Gastroenterology and Libra Hepatology Maurice Mendes M.D., Ph.D. [address] [place] [phone] 09/05/2022 Appointment Gastroenterology and Libra, Hepatology Maurice Mendes M.D., Ph.D. [address] [place] [phone] documented as of this encounter Procedures Procedure [...] Volume Laterality 02/18/2019 3:24 PM CDT Impressions [facility] - 02/18/2019 4:13 PM CDT Post-op Diagnoses: ? - Dilation in the entire esophagu s. ? - Normal lower esophageal sphinct er. Dilated. ? - Normal stomach. ? - Normal examined duodenum. ? - No specimens collected. ? - Endo flip consistent with treat ed achalasia. Narrative [facility] - 02/18/2019 4:13 PM CDT Danny 2 GI Patient Name: David Castro Date [...] Organization Address City/State/ZIP Code Phon e Number [employer] NA documented in this encounter Visit [...]
--- OUTSIDE RECORDS SUMMARY | 2022-06-14 06:22 | XMS_ITS | Encounter Summary ---
:1940 Author Organization [facility] Address [address] [place] [address] Care Team Providers Name Role Phone Unavailable [...] How often do you attend hinduism or spiritism More than 4 time s [...] Support Nutrition Ankita Smyth M.D., Ph.D. [address] [place] [phone] Ace Morris, ALONAN, LD [address] [place] [phone] 06/20/2022 Comprehensive Visit Gastroenterology and Libra Hepatology Maurice Mendes M.D., Ph.D. [address] [place] [phone] 06/22/2022 Appointment Radiology Maurice Smyth M.D., Ph.D. [address] [place] [phone] 07/12/2022 Clinical Communication Admitting/Central Scheduling 08/31/2022 Appointment Gastroenterology and Libra Hepatology Maurice Mendes M.D., Ph.D. [address] [place] [phone] 09/01/2022 Appointment Gastroenterology and Libra Hepatology Maurice Mendes M.D., Ph.D. [address] [place] [phone] 09/05/2022 Appointment Gastroenterology and Libra Hepatology Maurice Mendes M.D., Ph.D. [address] [place] [phone] documented as of this encounter Procedures Procedure [...]
--- OUTSIDE RECORDS SUMMARY | 2022-06-14 06:22 | XMS_ITS | Encounter Summary ---
:1940 Author Organization [facility] Address [address] [place] [address] Care Team Providers Name Role Phone Unavailable Primary Care Provider Unavailable Encounter Details Date Type Department Care Team Description 12/06/2021 Clinical Communication Division of Pulmonary Samia Gonzales, Medicine in M.D., M.H.P.E. [place], [place] [address] [facility] [address] [place] [phone] Social History Tobacco Use Types Packs/Day Years [...] How often do you attend rastafari or restorationism More than 4 time s [...] Support Nutrition Ankita Smyth M.D., Ph.D. [address] [place] [phone] Ace Morris, ALONAN, LD [address] [place] [address] 06/20/2022 Comprehensive Visit [facility] Maurice Mendes M.D., Ph.D. [address] [place] [phone] 06/22/2022 Appointment Radiology Maurice Smyth M.D., Ph.D. [address] [place] [phone] 07/12/2022 Clinical Communication Admitting/Central Scheduling 08/31/2022 Appointment [facility] Maurice Mendes M.D., Ph.D. [address] [place] [phone] 09/01/2022 Appointment G[facility]at[facility] Maurice Mendes M.D., Ph.D. [address] [place] [phone] 09/05/2022 Appointment [facility] Maurice Mendes M.D., Ph.D. [address] [place] [phone] documented as of this encounter Visit Diagnoses Diagnosis Empyema Pleural (HCC) documented in this encounter
--- OUTSIDE RECORDS SUMMARY | 2022-06-14 06:22 | XMS_ITS | Encounter Summary ---
:1940 Author Organization [facility] Address [address] [place] [address] Care Team Providers Name Role Phone Unavailable Primary Care Provider Unavailable Reason for Visit Auth/Cert Specialty Diagnoses / Procedures Referred By Contact Refer red To Contact Diagnoses Empyema Pleural (HCC) weakness Procedures DIR TO IP Referral ID Status Reason Start Date Expiration Date Visits Requ ested Visits Authorized [id number] 1 1 Encounter Details Date Type Department Care Team Description 2021 - [facility] John Paul Dockery M.D., M.P.H. [address] [place] [address] Hydropneumothorax (Primary Dx); [facility] [address] [place] [address] Empyema Pleural (HCC); [facility], Ace Menchaca M.D. Effusion Pleural; Domitilla Dysphagia; Building, [facility] Floor [address] [place] [address] [phone] Social History Tobacco Use Types Packs/Day Years [...] How often do you attend yarsani or methodist More than 4 time s per year 04/11/2022 services? Do you belong to any clubs or organizations Yes 04/11/2022 such as yarsani groups, unions, [employer]F [employer] or athletic groups, or school groups? How [...] CDT DISCHARGE SUMMARY BRIEF OVERVIEW Discharge Hospital: [facility] Discharge Provider: Arti Lozoya M.D. Discharge Provider Team: Hospital Internal Medicine (HIM) - [facility] Medicine 8 ([facility]) No primary care provider on file. [...] Admitting/Central Scheduling 12/28/2021 8:[address] [facility] Radiology 12/28/2021 1:30 PM Peng Tinajero M.D. Pulmonary Medicine For appointment details refer to your Patient Appointment Guide. TEST RESULTS PENDING AT DISCHARGE Pending Labs Order Current Status Fungal Culture, Routine In process DETAILS OF HOSPITAL STAY REASON FOR ADMISSION Empyema Pleural (HCC) HOSPITAL COURSE Mr. David Castro is a 81 y.o. male who presented to the [facility] ED with a chief complaint of [...] both lower legs. He initially presented to [facility], then transitioned to [facility] for further care. Identified on CTperformed at [place] to have a complex hydropneumothorax with scattered [...] care was discussed with Dr. Lozoya, HIM sap ariba consultant. I saw and evaluated MrBailey Castro today and provided counseling xoqa-sn-qljf at bedside. I personally spent a total of 35 minutes in counseling and coordination of care as described above to facilitate the hospital discharge. Discharge instructions were provided to the patient and caregiver(s). documented in this encounter Discharge Instructions Discharge InstructionsBernice Pisano - 2021 7:19 AM CDT You were discharged from the [place] [address] ([facility]) Service. Please identify this service name if you call with questions after hospitalization. AppointmentsBernice Pisano - 2021 2:46 PM CDT Take a copy of this after visit summary to your appointment(s). DIVINA Van December 09, 2021 - --4:10 PM - Hospital Follow-Up with Dr. Doran, at [facility] Address: [address] [place] [address]. [place] [address] If you have any questions, concerns, or need to reschedule please call [phone] AttachmentsThe following attachments cannot be sent through Care Everywhere. Amoxicillin/Clavulanate Potassium (By mouth) (Hebrew)Gentamicin (On the skin) (Hebrew)Cholecalciferol (By mouth) (Hebrew)documented in this encounter Medications at Time of [...] mg 2 (two) times a day. tablet amoxicillin-pot Take 1 tablet (500 mg [...] 0 12/0712/11/[address] capsule daily. warfarin (COUMADIN) 2 1 mg on //Mon and 0 06/06/2022 mg tablet 2 mg on ///Sat. documented as of this encounter Progress Notes [...] he dismisses today as recommended by Nephrology sap ariba consultant Dr. Kennedy. Addendum: Continue to hold his oral torsemide 40 mg daily in the setting of soft blood pressure [facility] His peritoneal dialysis nurse in the [...] Plan was reviewed with Dr. Kennedy nephrology sap ariba consultant. For questions or concerns, please page the Nephrology A STOCK LETTERER/PA pager, [phone] or you may text page by clicking here. Associated attestation - Yamileth Kennedy M.D., Ph.D. - 12/08/2021 1:52 PM CDT I was the supervising physician in the delivery of the service. Diana Reed, ALONAN, LD - 12/07/2021 2:55 PM CDT Clinical [...] each. See patient education flowsheet for details. Application Project Leader assisted with ordering late afternoon meal and breakfast. Patient stops eating by 3-4 pm and sits upright after all meals and while asleep. PLAN If patient remains hospitalized, may consider transitioning to regular diet to allow foods of his tolerance and preference. For questions about patient's nutritional care please contact pager [phone] on weekdays or [phone] on weekends/holidays. Juan Pablo Giron, Pharm.D., R.Ph. [...] to 1.5 mg for this evening. Matthew Giron, D., R.Ph. Contact me via secure chat with any questions about this note. Yue Perez O.T., [facility] - 12/07/2021 12:48 PM CDT OT [...] pleural fluid when he was admitted to [facility] for heart failure (EF 25-30%). [...] was seen and discussed with the supervising sap ariba consultant, Dr. Gonzales. We will sign off. Please contact [phone] with questions or concerns. Jaqueline Moseley M.D. PCC Fellow Associated attestation - Chely Gonzales M.D., [...] is glad to see the sun shining. Stage Manager initiated contact to introduce spiritual care department and to assess for potential spiritual care needs. Family: Mr. Castro's support system was at the bedside. Marixa Tradition: Mr. Castro is Religion, per his chart. He shares that he's been able to watch his yarsani's services online and has found it to be comforting. Mr. Castro did not think he had any specific spiritual care needs at this time and was alerted to parking enforcement officer availability if any needs arise in the future. Plan: Will remain available for spiritual care as needed or requested. Chaplains can be contacted bypaging [phone] ([place]) or [phone] ([place]). Jeannine Jay APRN, C.N.P., M.S.N. - 12/07/2021 [...] or concerns, please page the Nephrology A STOCK LETTERER/PA pager, [phone] or you may text page by clicking here. Associated attestation - Yamileth Kennedy M.D., Ph.D. - 12/07/2021 2:18 PM CDT I was the supervising physician in the delivery of the service. Maria G Adame P.A.-C., M.S. - 12/07/2021 7:34 AM CDT [facility] Medicine 8 ([facility]) Progress Note [...] / PLAN Mr. Castro is hospitalized on [place] [address] ([facility]) for evaluation and management of Empyema Pleural(HCC). 81 year old male admitted for weakness and new right sided pleural effusion. He was brought to the ED after he was unable to stand to get out of his car due to acute onset of lower extremity weakness. Work up in the ED was notable for Initially He is admitted to [place] [address] for further evaluation. ?? #1 Weakness, generalized [...] weeks -follow up in Esophagus clinic -appreciate mime artist to discuss diet education ?? #13 Elevated [...] care was discussed with Dr. Lozoya, HIM sap ariba consultant. Counseling was provided bwup-iy-nafk at bedside regarding the plan of care as stated above. I personally spent over half of a total 35 minutes in counseling and coordination of care as documented above. Maria G Adame P.A.-C., M.S. [facility] 1 - [phone] Holly Cross M.B.BBaileySBailey - 12/06/2021 3:58 PM CDT GASTROENTEROLOGY CONSULT [...] Please page the GI consult pager at [phone] with any further questions or concerns. Evette [...] feel free to discusswith Dr. Yamileth Kennedy, pigment pumper and IR. -- As patient NPO, please [...] or concerns, please page the Nephrology A STOCK LETTERER/PA pager, [phone] or you may text page by clicking here. Associated attestation - Yamileth Kennedy M.D., Ph.D. - 12/06/2021 6:01 PM CDT I reviewed the case with the resident/fellow but did not see the patient. I agree with the assessment and plan as documented in the STOCK LETTERER's note. Jaqueline Fontanez M.D. - 12/06/2021 10:32 [...] effusion. Images were saved and uploaded to [employer]. DIAGNOSTICS I have reviewed relevant laboratory, imaging, [...] pleural fluid when he was admitted to [facility] for heart failure (EF 25-30%). [...] was seen and discussed with the supervising sap ariba consultant, Dr. Gonzales. We will continue to follow. Please contact [phone] with questions or concerns. Jaqueline Moseley M.D. [facility] Fellow Associated attestation - Chely Gonzales M.D., M.H.P.Nell. - 12/06/2021 11:16 AM CDT I saw [...] we will continue to follow. Soo Plaza, Pharm.D., R.Ph. - 12/06/2021 10:11 AM CDT Pharmacist [...] 5.) Constipation: Miralax daily Soo Plaza, PharmD [phone] Simran Hlem P.A.-C., M.S. - 12/06/2021 7:44 AM CDT [facility] Medicine 8 ([facility]) Progress Notes SUBJECTIVE The [facility] Medicine 8 ([facility]) service evaluated Mr. Castro this morning [...] 65 Intake/Output Last 24 Hours: Date 12/05/21 0700 - 12/06/21 0659 12/06/21 0700 - 12/07/21 0659 Shift 1642-5187 0069-7852 5743-3497 24 Hour Total 0307-0770 7606-0103 4179-7370 24 Hour Total INTAKE P.O. 180 240 [...] CAM negative for acute delirium. 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 ASSESSMENT / PLAN Mr. Castro is hospitalized on [place] [address] ([facility]) for evaluation and management of Empyema Pleural(HCC). He was brought to the ED after he was unable to stand to get out of his car due to acute onset of lower extremity weakness. Additional workup in the ED concerning for recurrent pleural effusions/empyema as below. He is admitted to [place] [address] for further evaluation. #1 Weakness, generalized Improved [...] plan of care detailed above. I provided giys-vy-scuo counseling at bedside regarding the plan of care. The patient acknowledged an understanding and agreed with the plan of care listed above. I personally spent over half of a total 40 minutes in counseling and coordination of care as documented above. Simran Helm M.S., PA-C Pager: [phone] Evette Pham APRN, C.N.P., D.N.P. - 12/05/2021 [...] or concerns, please page the Nephrology A STOCK LETTERER/PA pager, [phone] or you may text page by clicking [...] effusion. Images were saved and uploaded to [employer]. DIAGNOSTICS I have reviewed relevant laboratory, imaging, [...] pleural fluid when he was admitted to [facility] for heart failure (EF 25-30%). [...] was seen and discussed with the supervising sap ariba consultant, Dr. Means. We will continue tofollow. Please contact [phone] with questions or concerns. Avis Dobson. [facility] Fellow Associated attestation - Will Means [...] P.A.-C., M.S. - 12/05/2021 6:58 AM CDT [facility] Medicine 8 ([facility]) Progress Notes SUBJECTIVE The [facility] Medicine 8 ([facility]) service evaluated Mr. Castro this morning [...] Intake/Output Last 24 Hours: Date 12/04/21699 - 12/05/2165812/05/21 07 - 12/06/21 0659 Shift 2695-9959 2729-6093 9633-7284 24 Hour Total 8362-6789 0637-8288 9422-3611 24 Hour Total INTAKE P.O. 210 210 Other 10 0 10 Intermittent Medications 50 50 50 150 Shift Total(mL/kg) 270(3.4) 50(0.6) 50(0.6) 370(4.7) OUTPUT Urine(mL/kg/hr) 350(0.6) 275 625 Urine 350 275 625 Chest Tube 160 60 220 Dialysis 4 80 84 Shift Total(mL/kg) 514(6.5) 415(5.3) 929(11.8) NET 000 -226 -841 -596 Weight (kg) 78.6 78.6 78.6 78.6 78.6 [...] CAM negative for acute delirium. 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 ASSESSMENT / PLAN Mr. Castro is hospitalized on [place] [address] ([facility]) for evaluation and management of Empyema Pleural(HCC). He was brought to the ED after he was unable to stand to get out of his car due to acute onset of lower extremity weakness. Additional workup in the ED concerning for recurrent pleural effusions/empyema as below. He is admitted to [place] [address] for further evaluation. #1 Weakness, generalized Improved [...] plan of care detailed above. I provided izft-yh-rmcd counseling at bedside regarding the plan of care. The patient acknowledged an understanding and agreed with the plan of care listed above. I personally spent over half of a total 40 minutes in counseling and coordination of care as documented above. Simran Helm M.S., PA-C Pager: [phone] Jaqueline Fontanez M.D. - 12/04/2021 3:19 PM CDT Images from the original note were not included. Pleural Service/Interventional Pulmonology Service Consult Note SUBJECTIVE Referral Source: Jamal Andujar, SCHOOL BUS OPERATOR, C.N.P. Reason for Consult: Suspected empyema Interval [...] effusion. Images were saved and uploaded to [employer]. DIAGNOSTICS I have reviewed relevant laboratory, imaging, [...] pleural fluid when he was admitted to [facility] for heart failure (EF 25-30%). [...] was seen and discussed with the supervising sap ariba consultant, Dr. Means. We will continue tofollow. Please contact [phone] with questions or concerns. Jaqueline Moseley M.D. [facility] Fellow Yamileth Kennedy M.D., Ph.D. - 12/04/2021 2:56 PM CDT This is a supervisory note to [facility] nurse practitioner. I met with the patient interviewed examined him he is receiving CCPD in the hospital overnight with 1.5% Dianeal. He was happy with the connect disconnect procedures overnight. Has no pain on instillation. I/O 12/03 0000 12/03 2359 12/04 0000 12/04 2359 P.O. 640 210 Other 10 Crystalloid [...] or concerns, please page the Nephrology A STOCK LETTERER/PA pager, [phone] or you may text page by clicking here. Will Means M.D. - 12/04/2021 1:46 PM CDT Narrative summary: We visited with this patient for long time at the bedside. We reviewed his CT scan and his prior records including initial consult from Dr. Jimenez. I discussed the case with nephrology jrpa-qc-kxew. He is an 81M never smoker who is retired from [employer]. He has the prior history of lymphocytic [...] P.A.-C., M.S. - 12/04/2021 7:59 AM CDT [facility] Medicine 8 ([facility]) Progress Notes SUBJECTIVE The [facility] Medicine 8 ([facility]) service evaluated Mr. Castro this morning [...] [56-91] 56 Intake/Output Last 24 Hours: Date 12/03/21 07 - 12/04/21 0612/04/21 07 - 12/05/21 0659 Shift 0190-7957 5645-4163 2599-3848 24 Hour Total 1554-5849 2097-4422 3369-4919 24 Hour Total INTAKE P.O. 240 400 [...] lower extremities bilaterally. Coordination intact w ith xvtkui-sj-xgid testing, rapid alternating hand movements. Negative pronator drift. Mental: Mood and affect congruent. Alert and oriented. Attention intact. No evidence of disorganizedthinking. RASS 0. 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 DIAGNOSTICS I personally reviewed labs, imaging, EMR. ASSESSMENT / PLAN Mr. Castro is hospitalized on [place] [address] ([facility]) for evaluation and management of Empyema Pleural(HCC). He was brought to the ED after he was unable to stand to get out of his car due to acute onset of lower extremity weakness. Additional workup in the ED concerning for recurrent pleural effusions/empyema as below. He is admitted to [place] [address] for further evaluation. #1 Weakness, generalized He [...] plan of care detailed above. I provided oegb-ws-fnzn counseling at bedside regarding the plan of care. The patient acknowledged an understanding and agreed with the plan of care listed above. I personally spent over half of a total 40 minutes in counseling and coordination of care as documented above. Simran Helm M.S., PA-C Pager: [phone] Jaqueline Fontanez M.D. - 12/03/2021 1:21 PM [...] effusion. Images were saved and uploaded to [employer]. DIAGNOSTICS I have reviewed relevant laboratory, imaging, [...] pleural fluid when he was admitted to [facility] for heart failure (EF 25-30%). [...] was seen and discussed with the supervising sap ariba consultant, Dr. Jimenez. We will continue to follow. Please contact [phone] with questions or concerns. Jaqueline Moseley M.D. [facility] Fellow Associated attestation - Wlil Means M.D. - 12/04/2021 1:46 PM CDT [...] P.A.-C., M.S. - 12/03/2021 12:25 PM CDT [facility] Medicine 8 ([facility]) Progress Notes SUBJECTIVE The T Medicine 8 ([facility]) service evaluated Mr. Castro this morning [...] Intake/Output Last 24 Hours: Date 12/02/21699 - 12/03/2159 12/03/216[address] - 12/04/21 0659 Shift 7905-7049 7667-0097 6954-3829 24 Hour Total 5533-5152 6258-2195 2196-5500 24 Hour Total INTAKE P.O. 236 360 [...] CAM negative for acute delirium. 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 DIAGNOSTICS I personally reviewed labs, imaging, EMR. ASSESSMENT / PLAN Mr. Castro is hospitalized on [place] [address] ([facility]) for evaluation and management of Empyema Pleural(HCC). He was brought to the ED after he was unable to stand to get out of his car due to acute onset of lower extremity weakness. This is since resolved. Additional workup in the ED concerning for recurrent pleural effusions/empyema as below. He is admitted to [place] [address] for further evaluation. #1 Weakness, generalized--improving In [...] plan of care detailed above. I provided ngnj-am-kpzy counseling at bedside regarding the plan of care. The patient acknowledged an understanding and agreed with the plan of care listed above. I personally spent over half of a total 40 minutes in counseling and coordination of care as documented above. Simran Helm M.S., PA-C Pager: [phone] Diana Reed RDN, LD - 12/03/2021 11:18 AM CDT Clinical Nutrition: Initial Assessment Clinical Nutrition was requested to evaluate patient for positive nursing baseline nutrition screen with a MST score of 2 or greater SUBJECTIVE Mr. Castro is a 81 y.o. male transferred from [facility] for evaluation of acute [...] achalasia which patient reported has been a fci issue. He stated he usually eats throughout [...] 1900 calories/day Method to Estimate Energy Needs: [place] (Basal + 20%) Weight Used for Equation [...] about patient's nutritional care please contact pager [phone] on weekdays or [phone] on weekends/holidays. Kasia Narayanan Pharm.D., R.Ph. - [...] regimen intensified today Kasia Narayanan PharmD, BCPS [phone] Evette Pham APRN, C.N.P., D.N.P. - 12/03/2021 [...] lab and they are looking into the yagt-ae-ltpmjll on the pleural fluidglucose drawn > 24 [...] or concerns, please page the Nephrology A STOCK LETTERER/PA pager, [phone] or you may text page by clicking [...] 2021 1:23 PM CDT T Medicine 8 ([facility]) Progress Notes SUBJECTIVE The T Medicine 8 ([facility]) service evaluated Mr. Castro this morning [...] 63 Intake/Output Last 24 Hours: Date 12/01/21 0700 - 12/02/21 0659(Not Admitted) 12/02/21 0700 - 12/03/21 0659 Shift 1596-1769 1702-8750 4838-3173 24 Hour Total 6362-9674 3094-3272 1486-2273 24 Hour Total INTAKE Shift Total(mL/kg) OUTPUT [...] CAM negative for acute delirium. 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 DIAGNOSTICS I personally reviewed labs, imaging, EMR. ASSESSMENT / PLAN Mr. Castro is hospitalized on [place] [address] ([facility]) for evaluation and management of Empyema Pleural(HCC). He was brought to the ED after he was unable to stand to get out of his car due to acute onset of lower extremity weakness. This is since resolved. Additional workup in the ED concerning for recurrent pleural effusions/empyema as below. He is admitted to [place] [address] for further evaluation. #1 Weakness, generalized--improving He [...] plan of care detailed above. I provided rutb-fo-sali counseling at bedside regarding the plan of care. The patient acknowledged an understanding and agreed with the plan of care listed above. I personally spent over half of a total 40 minutes in counseling and coordination of care as documented above. Simran Helm M.S., PA-C Pager: [phone] Kasia Ridley Pharm.D., R.Ph. - 2021 9:48 AM CDT [...] from the hospital. Kasia Ridley Pharm.D., R.Ph. [phone] documented in this encounter H&P Notes Jamal Andujar APRN, C.N.P. - 2021 1:00 AM CDT [facility] Medicine 8 ([facility]) Admission Note SUBJECTIVE CHIEF COMPLAINT Weakness [...] He sat in the recliner andwatched [employer] Game and after noted he was still very weak, thus took him to [facility]. At [facility], we do not have much info, as they are not in care everywhere; he reports he had labs and a CT, was told he had fluid around his lungs, thus he was given Zosyn and Clindamycin, reports around 2000 and 2200 roughly. Reports [facility] was working on trying to send him out; and eventually he was transitioned to [facility] here and directly admitted. In meeting Mr. [...] in hospital. He has no other complaints. [facility] gave him all his evening med's. [...] I have independently reviewed the CT/CXR from [place], showing Empyema with air, in Qreads. ASSESSMENT [...] 900 mg's at OSH, patient thinks around 1999 and 2200. -Ordered CT/CXR for interpretation by [place]/here. -Ordered CMP, Mg, Phos, CBCdiff, lactate, procalcitonin, [...] and walk) Disposition: Home Counseling was provided dbkh-ed-jrev at bedside regarding the plan of care [...] fellow participated in the procedure, and the sap ariba consultant was present for the entire procedure. [...] right posterior Intercostal space: 9th Puncture method: qymi-iky-tdxyug catheter Number of attempts: 1 Drainage characteristics: [...] fellow participated in the procedure, and the sap ariba consultant was present for the entire procedure. Associated attestation - Cj Jimenez M.D. - 2021 2:42 PM CDT I was present for the entirety of the procedure(s). documented in this encounter Consult Notes Aleida Flores M.D. - 12/03/2021 3:26 PM CDT INPATIENT SUPERVISORY CONSULT NOTE Date of Consultation: 12/03/2021 Requesting Service: [facility] Medicine 8 ([facility]) This is a supervisory note for Mandie Goel.S. I have reviewed the available records, interviewed [...] Heller myotomy locally with Dr. Awan at [place]. The think that this was at least [...] Alkaline Phosphatase #11 Anemia Of Chronic Disease Holyl Cross M.B.B.S. - 12/03/2021 2:24 PM CDTAssociated [...] of? Esophageal perforation Briefly, he is from [place] Lives at home Functionally very active [...] Please page the GI consult pager at [phone] with any questions or concerns. Ani Tariq P.T., D.P.T. - 12/03/2021 12:51 PM CDT Physical Therapy Inpatient Evaluation/Treatment SUBJECTIVE Patient's Name: David Castro Referring/Attending Provider: John Paul Dockery M.D. Medical Diagnosis: Empyema Pleural (HCC) [J86.9] Reason for Referral: PT eval and treat- acute Onset Date: 12/02/21 [facility] Plan: [facility] MEDICARE COMPLETE / Product Type: PPO / [...] the gym Prior Mobility/Functional Transfers Level of [place]: Independent Home Living Type of Home: House [...] therapy session: during hallway mobility Outcome Measures -[facility] Inpatient Short Form: -[facility] Basic Mobility (V.2) How much help [...] 3-5 steps with a railing?: A Little -[facility] Basic Mobility (V.2) Raw Score: 22 -[facility] Basic Mobility (V.2) Standardized Score: 47.4 Interpretation: Clinicians answer the -[facility] Inpatient Short Form based on observed [...] admitted today with complaints of weakness for [id number] hours. He has a pertinent past medical [...] proceeded with placement of a right 12 Burundian locking loop thoracostomy tube. Post placement chest [...] 14 Ht 167.6 cm Wt 79.3 kg KcN080% BMI 28.22 kg/m?? General: pleasant, lying in bed with family at the side Pulmonary: no audible breathing, no increased work of breathing Bedside ultrasound demonstrated a moderate right pleural effusion with septations and no left pleural effusion. Images were saved and uploaded to [employer]. Bedside ultrasound demonstrating placement of guidewire for pigtail DIAGNOSTICS I have reviewed relevant laboratory, imaging, and other diagnostics as applicable to this consultation. Cycle Touring Guide CXR on CT Chest 12/01/21 compared to [...] pleural fluid when he was admitted to [facility] for heart failure (EF 25-30%) [...] was seen and discussed with the supervising sap ariba consultant, Dr. Jimenez. We will continue to follow. Please contact [phone] with questions or concerns. Jaqueline Moseley M.D. [facility] Fellow Viki Waldrop O.T., O.T.Candida - 2021 1:50 PM CDT Occupational Therapy Dysphagia Evaluation/Treatment SUBJECTIVE Patient's Name: David Castro Referring/Attending Provider: John Paul Dockery M.D. Medical Diagnosis: Empyema Pleural (HCC) [J86.9] Reason for Referral: Reason for Referral: OT Dysphagia Eval/Treat Onset Date: 12/02/21 [facility]: [facility] / Plan: [facility] MEDICARE COMPLETE / Product Type: PPO / [...] was reviewed with Dr. Kennedy, Nephrology A sap ariba consultant For questions or concerns, please page the Nephrology A STOCK LETTERER/PA pager [phone]). Associated attestation - Yamileth Kennedy M.D., Ph.D. [...] Xray completed post removal. Plan to discharge [facility] tomorrow. Problem: ALTERED NUTRIENT INTAKE - ADULT Goal: Nutrient intake appropriate for improving, restoring or maintaining nutritional needs Outcome: Progressing Note: Beet Flumer able to meet with patient and at [...] video swallow ordered. Paty Pina M.S., R.N., C.M.S.Antwan - 12/06/2021 5:50 AM CDT Shift Goals: Clinical Goals for the Shift: Pt will sleep well overnight Identify possible barriers to meeting goals/advancing plan of care: none End of Shift Summary: Pt slept well overnight. CT to -20 suction. NPO since midnight for esophogram today. Electronically signed by: Paty Pina M.S., Antwan, NatalieMBaileySBaileyR.N. 12/06/21 5:52 AM CDT Charito Roche R.N. [...] midnight for possible esophagram. Paty Pina M.S., R.NBailey, C.M.S.R.N. - 12/05/2021 5:24 AM CDT Shift Goals: Clinical Goals for the Shift: Pt will sleep well overnight Identify possible barriers to meeting goals/advancing plan of care: CT End of Shift Summary: Pt slept well overnight. No complaints of pain. CT remains to -20 suction. PD done overnight. Electronically signed by: Paty Pina M.S., Antwan, Pablo.M.SBaileyR.NBailey 12/05/21 5:26 AM CDT Charito Roche R.N. [...] Electronically signed by: Paty Pina M.S., Antwan, Tia 12/04/21 5:28 AM CDT Charito Roche R.N. [...] Pigtail chest tube placed and set to -[id number] continuous suction. IV Zosyn administered. Plan for [...] 81 y.o. male who presented to the [facility] ED with a chief complaint of [...] both lower legs. He initially presented to [facility], then transitioned to [facility] for further care. Identified on CTperformed at [facility] to have a complex hydropneumothorax with scattered [...] Support Nutrition Ankita Smyth M.D., Ph.D. [address] [place] [phone] Ace Morris, RDN, LD [address] [place] [address] 06/20/2022 Comprehensive Visit Gastroenterology and [facility] Maurice Mendes M.D., Ph.D. [address] [place] [phone] 06/22/2022 Appointment Radiology Maurice Smyth M.D., Ph.D. [address] [place] [phone] 07/12/2022 Clinical Communication Admitting/Central Scheduling 08/31/2022 Appointment Gastroenterology and [facility] Maurice Mendes M.D., Ph.D. [address] [place] [phone] 09/01/2022 Appointment Gastroenterology and [facility] Maurice Mendes M.D., Ph.D. [address] [place] [phone] 09/05/2022 Appointment Gastroenterology and [facility] Maurice Mendes M.D., Ph.D. [address] [place] [phone] documented as of this encounter Procedures Procedure [...] all are in the outpatients) results section. FL PLEURA DRAIN PERC Routine 2021 6:25 Empyema Pleural R esults for W IMG GUID PM CDT (HCC) this procedure Effusion Pleural are in the Hydropneumothora results x section. CONTINUOUS CYCLING Routine 2021 1:17 PERITONEAL DIALYSIS PM CDT (CCPD) AMYLASE, BF Routine 2021 10:04 Results for AM CDT this procedure are in the results section. FL THORACENTESIS Routine 2021 9:47 Effusion Pleural Resu lts for PLEURA W IMG AM CDT this procedure are in the results section. BROAD RANGE BACTERIA Timed 2021 9:36 Resu lts for PCR AND SEQUENCING AM CDT this proc edure are in the results section. CYTOLOGY NON-BATTERY RECHARGER Timed 2021 9:36 Results for AM CDT [...] 12/08/2021 DTL Black/ mL/min/BSA 10:28 AM CDT [place]ian Comment: ----ADDITIONAL INFORMATION---- Estimated GFR calculated using [...] City/State/ZIP Code Phon e Number [facility] - [address] [place], [place] [address] [facility] [place] [address] Laboratories-[facility] [address] (ABNORMAL) CBC without Differential (12/08/2021 9:26 AM CDT) [facility] Method Time Signature Hemoglobin 9.9 (L) [...] AM 12/09/19 9:46 Venous) CDT AM CDT Mraia G Adame P.A.-C., M.S. LAB BLOOD ADD-ON Performing Organization Address City/State/[facility] Code Phon e Number [facility] - [address] [place] [address] [facility] [place] [address] [facility] [address] [facility] (ABNORMAL) Prothrombin Time (PT) (12/08/2021 9:26 AM CDT) [facility] Method Time Signature Prothrombin 16.5 (H) [...] City/State/ZIP Code Phon e Number [facility] - 200 [place], [place] [address] [facility] [place] [address] [facility] [address] [facility] (ABNORMAL) Basic Metabolic Panel (12/07/2021 12:42 [...] 12/07/2021 DTL Black/ mL/min/BSA 1:56 PM CDT [place]ian Comment: ----ADDITIONAL INFORMATION---- Estimated GFR calculated using [...] M.S. LAB BLOOD ADD-ON Performing Organization Address [facility] Phon e Number [facility] - [address] (ABNORMAL) Parathyroid Hormone (PTH) (12/07/2021 12:38 [...] APRNNBaileyPBailey LAB BLOOD ADD-ON Performing Organization Address [facility] Phon e Number [facility] - [address] [place] [address] (ABNORMAL) Hepatic Function Panel (12/07/2021 12:38 PM [...] CDT PM CDT Maria G Adame P.A.-C. MBaileySBailey LAB BLOOD ADD-ON Performing Organization Address City/State/ZIP Code Phon e Number [facility] - [address] [place], [place] [address] [facility] [place] [address] [facility] [address] DX Chest [...] aorta. Jaqueline Moseley M.D. [facility] DI[facility] [place] OCEDURES (ABNORMAL) Prothrombin Time (PT) (12/07/2021 8:06 AM CDT) [facility] gist Method Time Signature Prothrombin 16.8 [...] City/State/ZIP Code Phon e Number [facility] - [address] [place] [address] [facility] [place] [address] [facility] [address] [address] [facility] Esophagram Single Contrast (12/06/2021 2:03 PM [...] SINGLE CONTRAST COMPARISON: ??Esophagram 09/17/2018. FINDINGS: ??Preprocedural senior writer image de monstrates partially visualized right pleural [...] SINGLE CONTRAST COMPARISON: Esophagram 09/17/2018. FINDINGS: Preprocedural senior writer image demo nstrates partially visualized right pleural [...] 12/06/2021 DTL Black/ mL/min/BSA 5:40 AM CDT [place]ian Comment: ----ADDITIONAL INFORMATION---- Estimated GFR calculated using [...] City/State/ZIP Code Phon e Number [facility] - [address] [place] [address] [facility] [place] [address] [facility] 200 [facility] (ABNORMAL) Prothrombin Time (PT) (12/06/2021 4:17 AM CDT) [facility] Method Time Signature Prothrombin 22.9 (H) 9.4 [...] BLOOD ADD-ON Performing Organization Address City/[facility] Phon e Number [facility] - 200 [place] [address] [address] [place], [place] [address] [place] [address] Broad Range Bacteria PCR+Sequencing (12/05/2021 10:03 AM CDT) Component Value Ref Test Analysis Performed At Patholo gist Range Method Time Signature Broad Range No bacterial DNA detected. 12/07/2021 DTL Bacteria This test was developed and its performance characteri stics 2:17 PM CDT PCR+Sequencin determined by [facility] in a manner consistent with g CLIA [...] - GENERAL O RDERABLES Performing Organization Address [facility] Phon e Number [facility] - [id number] [place] [address] (ABNORMAL) Renal Function Panel (12/05/2021 8:34 AM [...] 12/05/2021 DTL Black/ mL/min/BSA 9:25 AM CDT [place]ian Comment: ----ADDITIONAL INFORMATION---- Estimated GFR calculated using [...] City/State/ZIP Code Phon e Number [facility] - [address] [place], [place] [address] [place] [address] [facility] [address] Connective Tissue Diseases Allen (12/05/2021 8:34 AM CDT) athologist Signature Antinuclear Ab, 0.4 <=1.0 12/06/2021 [facility] S (Negative) 1:12 PM CDT U Comment: ----ADDITIONAL INFORMATION---- Method: Enzyme-linked immunoassay using HEp-2 nuclear extract supplemented with purified antig ens. Cyclic Citrullinated <15.6 <20.0 (Negative) U 12/06/2021 10:49 AM [facility] Peptide Ab, S CDT Interpretation SEE COMMENT 12/06/2021 1:12 PM [facility] CDT Comment: Tests for antibodies to dsDNA and SHREYAS an tigens are not performed automatically unless the TANVIR r esult is > or = 3.0 U. ??Studies performed at [facility] indicate that positive TANVIR results <3.0 U are rarely a ccompanied by positive second order tests. Specimen Anatomical Collection Method Collection Time Receive d Time (Source) Location / / Volume Laterality Blood (Blood, 12/05/2021 8:34 AM 12/07/19 7:51 Venous) CDT AM CDT Simran Helm P.A.-C., M.S. LAB BLOOD ADD-ON Performing Organization Address City/[facility] Phon e Number [facility] [address] [place], [place] [address] [address] [facility] [place] [place] [address] Laboratory Medicine and Pathology [address] [place] (ABNORMAL) Prothrombin Time (PT) (12/05/2021 8:34 AM CDT) [facility] gist Method Time Signature Prothrombin 29.4 (H) [...] Laterality Blood (Blood, 12/05/2021 8:34 AM 12/06/19 22 8:54 Venous) CDT AM CDT Simran Helm P.A.-C., M.S. LAB BLOOD ADD-ON Performing Organization Address City/[facility] Code Phon e Number [facility] - [address] [place], [place] [address] [facility] [place] [address] [facility] [address] DX [...] degenerative changes to include mild compression fractures. Simarn Helm P.A.-C., M.S. IMG DIAGNOSTIC IMAGING PROCEDURES [...] City/State/ZIP Code Phon e Number [facility] - [address] [place], [place] [address] [facility] [place] [address] [facility] [address] [facility] (ABNORMAL) Renal Function Panel (12/04/2021 7:19 [...] 12/04/2021 DTL Black/ mL/min/BSA 8:38 AM CDT [place]ian Comment: ----ADDITIONAL INFORMATION---- Estimated GFR calculated using [...] City/State/ZIP Code Phon e Number [facility] - [address] [place], [place] [address] [facility] [place] [address] [facility] [address] (ABNORMAL) Prothrombin Time (PT) (12/04/2021 7:19 AM CDT) [facility] Method Time Signature Prothrombin 35.4 (H) 9.4 [...] Venous) CDT AM CDT Simran Helm P.A.-C., M.SBailey LAB BLOOD ADD-ON Performing Organization Address City/State/ZIP Code Phon e Number [facility] - [address] [place], [place] [address] [facility] [place] [address] [facility] [address] Chest [...] CBC without Differential (12/03/2021 9:26 AM CDT) [facility] Method Time Signature Hemoglobin 10.9 (L) [...] City/State/ZIP Code Phon e Number [facility] - [address] [place] [address] [facility] [place] [address] [facility] [address] [facility] (ABNORMAL) Electrophoresis, Protein (12/03/2021 8:21 AM CDT) [facility] gist Method Time Signature Total Protein, [...] Venous) CDT 10:53 AM CDT Simran Helm P.A.-C. M.S. LAB BLOOD ADD-ON Performing Organization Address City/State/ZIP Code Phon e Number [facility] [address] [place], [place] [address] [facility] [place] [address] Laboratory Medicine and Pathology [address] [...] 12/03/2021 DTL Black/ mL/min/BSA 9:32 AM CDT [place]ian Comment: ----ADDITIONAL INFORMATION---- Estimated GFR calculated using [...] Blood (Blood, 12/03/2021 8:21 AM 12/04/19 22 9:12 Venous) CDT AM CDT Simran Helm P.A.-C. M.S. LAB BLOOD ADD-ON Performing Organization Address City/State/ZIP Code Phon e Number [facility] - [address] [place], [place] [address] [facility] [place] [address] [facility] [address] [facility] (ABNORMAL) CBC with Differential, Blood (12/03/2021 8:21 AM CDT) [facility] gist Method Time Signature Hemoglobin 10.2 (L) 13.2 [...] M.S. LAB BLOOD ADD-ON Performing Organization Address [facility] Phon e Number [address] [place] [address] (ABNORMAL) Prothrombin Time (PT) (12/03/2021 8:21 AM CDT) [facility] gist Method Time Signature Prothrombin 40.5 [...] BLOOD ADD-ON Performing Organization Address City/[facility] Phon e Number [address] DX Chest Portable 1 View (12/03/2021 [...] calcification. Jaqueline Moseley M.D. IMG DIAGNOSTIC IMAGING FL OCEDURES DX Chest Portable 1 View (2021 [...] view. Jaqueline Moseley M.D. IMG DIAGNOSTIC IMAGING FL OCEDURES FL PLEURA DRAIN PERC W IMG GUID (2021 [...] fellow participated in the procedure, and the sap ariba consultant was present for the entire procedure. [...] atio <1.0. All other fluids refer to www.[employer] for further inter pretive information. This test has been modified from the man ufacturer's instructions. Its performance characteri stics were determined by [facility] in a manner consistent wi CLIA requirements. [...] City/State/ZIP Code Phon e Number [facility] - [address] [place], [place] [address] [facility] [place] [address] [facility] [address] [place] THORACENTESIS PLEURA W IMG (2021 9:47 AM CDT) Narrative Cj Jimenez M.D. - 2021 9:47 A M CDT Jaqueline Fontanez M.D. ? 2021 ??9:49 AM Thoracentesis Date/Time: 2021 9:47 AM Performed by: Jaqueline Fontanez M.D. Authorized by: Jaqueline Fontanez M.D. Care team members present 1. Cj Jimenez M.D. PROCEDURE DETAILS Patient position: sitting Location: right posterior Intercostal space: 9th Puncture method: [id number] cathete r Number of attempts: 1 Drainage [...] fellow participated in the procedure, and the sap ariba consultant was present for the entire procedure. Jaqueline Moseley M.D. PROCEDURE/MINOR SURGICAL ORDERABLES Broad Range Bacteria PCR+Sequencing (2021 9:36 AM CDT) Component Value Ref Test Analysis Performed At Patholo gist Range Method Time Signature Broad Range No bacterial DNA detected. 12/07/2021 DTL Bacteria This test was developed and its performance characteri stics 2:15 PM CDT PCR+Sequencin determined by [facility] in a manner consistent with g CLIA requirements. This test has not been cleared or approved by the U.S. Food and Drug Administration. Specimen Anatomical Collection Method Collection Time Receive d Time (Source) Location / / Volume Laterality Pleural Fluid, 2021 9:36 AM 022 Right CDT 11:28 AM CDT Comment: Specimen Source Site: Fluid Narrative [facility] - [facility] - 12/07/2021 2:15 PM CDT Bacterial Culture: Received Bactec aerob ic and Bactec anaerobic bottles Cj Jimenez M.D. LAB MICROBIOLOGY - GENERAL O [place] Performing Organization Address City/State/ZIP Code Phon e Number [facility] - [address] [place] [address] [facility] [place] [address] [facility] [address] Glucose, Body [...] of infection. All other fluids refer to [email or web address] for further inter pretive information. This test has been modified from the man ufacturer's instructions. Its performance characteri stics were determined by [facility] in a manner co nsistent with CLIA [...] AND STOOLS O [place] Performing Organization Address City/[facility]/ZIP Code Phon e Number [facility] - [address] [place], [place] [address] [facility] [place] [address] [facility] [address] [facility] pH, Pleural Fluid (2021 9:36 AM CDT) [facility] Method Time Signature pH, Pleural 7.27 Not Applicable 2021 [facility] pH 9:59 AM CDT Comment: [...] AND STOOLS Mustapha IBRAHIM Performing Organization Address [facility] Code Phon e Number [facility] - [address] [place], [place] [address] [facility] [place] [address] [place] [address] [facility] Fungal Culture, Routine (2021 9:36 AM CDT) [facility] Method Time Signature Fungal No growth 12/26/2021 DTL Culture, after 24 1:01 PM CDT Routine days of incubation. Specimen Anatomical Collection Method Collection Time Receive d Time (Source) Location / / Volume Laterality Fluid (Pleural 2021 9:36 AM 022 Fluid, Right) CDT 11:28 AM CDT Comment: Specimen Source Site: Fluid Narrative [facility] - [facility] - 12/26/2021 1:01 PM CDT Bacterial Culture: Received Bactec aerob ic and Bactec anaerobic bottles Cj Jimenez M.D. LAB MICROBIOLOGY - GENERAL O [place] Performing Organization Address City/[facility]/ZIP Code Phon e Number [facility] - [address] [place] [address] [facility] [place] [address] [facility] [address] Fungal Smear (2021 9:36 AM CDT) athologist Signature Fungal Smear Negative. 2021 DTL 1:56 PM CDT Specimen Anatomical Collection Method Collection Time Receive d Time (Source) Location / / Volume Laterality Fluid (Pleural 2021 9:36 AM 022 Fluid, Right) CDT 11:28 AM CDT Comment: Specimen Source Site: Fluid Narrative [facility] - 2021 1:56 PM CDT Bacterial Culture: Received Bactec aerob ic and Bactec anaerobic bottles Cj Jimenez M.D. LAB MICROBIOLOGY - GENERAL O RDERABLES Performing Organization Address City/[facility] Phon e Number [facility] - [address] [place], [place] [address] [place] [address] [place], [place] [address] [place] [address] Cytology Non-BATTERY RECHARGER (2021 9:36 AM CDT) Component Value Ref Test Analysis Performed At [facility] gist Range Method Time Signature 12/03/2021 [...] LAB SURG PATH ORDERABLES Performing Organization Address [facility] Phon e Number [facility] - [address] [place], [place] [address] [facility] [place] [address] Cell Count and Differential, Body Fluid (2021 9:36 AM CDT) [facility] Method Time Signature Fluid Type Right 2021 [facility] Pleural-Tho 12:45 PM CDT racentesis Gross Bloody 2021 [facility] Appearance 12:45 PM CDT Total Nucleated 1976 /mcL 2021 [facility] Cells 12:45 PM CDT Comment: ----REFERENCE VALUE---- Synovial: <150 /mcL Peritoneal: <500 /mcL Pleural: <500 /mcL Pericardial: <500 /mcL ----ADDITIONAL INFORMATION---- This test has been modified from the man ufacturer's instructions. Its performance characteri stics were determined by [facility] in a manner co nsistent with CLIA requirements. This test has not bee n cleared or approved by the U.S. Food and Drug Admin istration. Neutrophils 2 % 2021 12:[address] [facility] Comment: ----REFERENCE VALUE---- Synovial: <25% Peritoneal: <25% Pleural: <25% Pericardial: <25% Lymphocytes 78 Synovial <75% % 2021 12:45 PM CD T PM Monocytes/Macrophages 20 Synovial <70% % 2021 1 2:45 PM CDT PM Comment SeeComment 2021 12:45 PM CDT PM Comment: Cytology concurrently ordered; see separate report. Reviewed by: Tech 2021 12:45 PM CDT [facility] M Specimen Anatomical Collection Method Collection Time Receive d Time (Source) Location / / Volume Laterality Fluid (Pleural 2021 9:36 AM 022 Fluid, Right) CDT 11:25 AM CDT Cj Jimenez M.D. LAB BODY FLUIDS AND STOOLS O RDERABLES Performing Organization Address City/State/ZIP Code Phon e Number [facility] - [address] [place], [place] [address] [place] [address] [facility] [address] [facility] Bacterial Culture, Aerobic + Susc (2021 9:36 AM CDT) [facility] Method Time Signature Bacterial No growth 12/07/2021 DTL Culture, after 5 8:50 AM CDT Aerobic + Susc days of incubation. Specimen Anatomical Collection Method Collection Time Receive d Time (Source) Location / / Volume Laterality Fluid (Pleural 2021 9:36 AM 022 Fluid, Right) CDT 11:28 AM CDT Comment: Specimen Source Site: Fluid Narrative [facility] - 12/07/2021 8:50 AM CDT Bacterial Culture: Received Bactec aerob ic and Bactec anaerobic bottles Cj Jimenez M.D. LAB MICROBIOLOGY - GENERAL O [place] Performing Organization Address City/[facility]/ZIP [facility] [facility] [place] Phon e Number [facility] - 200 [place], [place] [address] [place] [address] Gram Stain (2021 9:36 AM CDT) [facility] Method Time Signature Gram Stain No organisms seen. 2021 DTL White blood cells present. 12:20 PM CDT Specimen Anatomical Collection Method Collection Time Receive d Time (Source) Location / / Volume Laterality Fluid (Pleural 2021 9:36 AM 022 Fluid, Right) CDT 11:28 AM CDT Comment: Specimen Source Site: Fluid Narrative [facility] - 2021 12:20 PM CDT Bacterial Culture: Received Bactec aerob ic and Bactec anaerobic bottles Cj Jimenez M.D. LAB MICROBIOLOGY - GENERAL O [place] Performing Organization Address City/State/ZIP Code Phon e Number [facility] - [address] [place], [place] [address] [facility] [place], [place] [address] [place] [address] Protein, Total, Body Fluid (2021 9:36 AM [...] ical findings. All other fluids refer to www.[employer]Scoreloop for further inter pretive information. This test has been modified from the pneumatic tester mechanic's instructions. Its perform ance characteristics were determined by [facility] in a manner consistent with CLIA require [...] City/State/ZIP Code Phon e Number [facility] - [address] [place], [place] [address] [facility] [place] [address] Laboratories-[facility] [address] [facility] Lactate Dehydrogenase (LD), Body Fluid (2021 9:36 AM CDT) [facility] gist Method Time Signature Lactate 343 See [...] clinical findings. All other fluids refer to www.[employer].Scoreloop for further interpretive information. This test has been modified from the man ufacturer's instructions. Its performance characteristics were det ermined by [facility] in a manner consistent with CLIA requirements [...] City/State/ZIP Code Phon e Number [facility] - [address] [place], [place] [address] [facility] [place] [address] Laboratories-[facility] [address] Interpretation of [...] Eso phageal hiatal hernia. Jamal Andujar APRN, C.N.PBailey Mike DIAGNOSTIC IMAGING PROC EDURES Interpretation of Outside [...] with non-obst ructive stones. Jamal Andujar APRN, Pablo.N.P. IMG CT PROCEDURES (ABNORMAL) Prothrombin Time (PT) (2021 1:01 AM CDT) Patholo gist Method Time Signature Prothrombin 33.3 (H) 9.4 - 12.5 2021 STMA Time, P sec 1:15 AM CDT INR 3.0 0.9 - 1.1 2021 [facility] Comment: ----ADDITIONAL INFORMATION---- Standard intensity warfarin therapeutic range: 2.0 to 3.0 ?? High intensity warfarin therapeutic rang e: 2.5 to 3.5 Specimen Anatomical Collection Method Collection Time Receive d Time (Source) Location / / Volume Laterality Blood (Blood, 2021 1:01 AM 12/03/19 1:09 Venous) CDT AM CDT Jamal Andujar APRN, C.N.P. LAB BLOOD ADD-ON Performing Organization Address City/[facility]/ZIP Code Phon e Number [facility] - [address] (ABNORMAL) Procalcitonin (2021 1:01 AM CDT) P athologist Signature Procalcitonin, 0.18 (H) <=0.08 2021 DTL S ng/mL 2:04 AM CDT Specimen Anatomical Collection Method Collection Time Receive d Time (Source) Location / / Volume Laterality Blood (Blood, 2021 1:01 AM 12/03/19 1:35 Venous) CDT AM CDT Jamal Andujar APRN, C.N.P. LAB BLOOD ADD-ON Performing Organization Address City/[facility]/ZIP Code Phon e Number [facility] - [address] Lactate (2021 1:01 AM CDT) athologist Signature Lactate, P 1.1 0.5 - 2.2 2021 DTL mmol/L 1:48 AM CDT Specimen Anatomical Collection Method Collection Time Receive d Time (Source) Location / / Volume Laterality Blood (Blood, 2021 1:01 AM 12/03/19 1:35 Venous) CDT AM CDT Jamal Andujar APRN, Pablo.N.P. LAB BLOOD NON ADD-ON Performing Organization Address City/[facility]/ZIP Code Phon e Number [facility] - [address] [place], [place] [address] [place] [address] [facility] 200 [facility] Phosphorus Inorganic (2021 1:01 AM CDT) athologist Signature Phosphorus 3.8 2.5 - 4.5 2021 DTL (Inorganic), S mg/dL 2:04 AM CDT Specimen Anatomical Collection Method Collection Time Receive d Time (Source) Location / / Volume Laterality Blood (Blood, 2021 1:01 AM 12/03/19 1:35 Venous) CDT AM CDT Jamal Andujar APRN, Pablo.N.P. LAB BLOOD ADD-ON Performing Organization Address City/[facility]/ZIP Code Phon e Number [facility] - [address] [place], [place] [address] [place] [address] Magnesium (2021 1:01 AM CDT) athologist Signature Magnesium, S 1.8 1.7 - 2.3 2021 DTL mg/dL 2:04 AM CDT Specimen Anatomical Collection Method Collection Time Receive d Time (Source) Location / / Volume Laterality Blood (Blood, 2021 1:01 AM 12/03/19 1:35 Venous) CDT AM CDT Jamal Andujar APRN, Pablo.N.P. LAB BLOOD ADD-ON Performing Organization Address City/State/ZIP Code Phon e Number [facility] - [address] [place], [place] [address] [facility] [place] [address] [facility] 200 [facility] (ABNORMAL) Comprehensive Metabolic Panel (2021 1:01 [...] 2021 DTL Black/ mL/min/BSA 1:58 AM CDT [place] Comment: ----ADDITIONAL INFORMATION---- Estimated GFR calculated using [...] City/State/ZIP Code Phon e Number [facility] - [address] [place] [address] [facility] [place] [address] Laboratories-[facility] [address] [facility] (ABNORMAL) CBC with Differential, Blood (2021 1:01 AM CDT) [facility] gist Method Time Signature Hemoglobin 10.1 [...] C.N.P. LAB BLOOD ADD-ON Performing Organization Address City/[facility] Phon e Number [facility] - [address] [place] [address] (ABNORMAL) GGT (Gamma-Glutamyltransferase) (2021 12:57 AM CDT) Component Value Ref Test Analysis Performed At [facility] gist Range Method Time Signature Gamma 169 (H) 8 - 61 2021 DTL Glutamyltransferase U/L 2:20 PM CDT (GGT), S Specimen Anatomical Collection Method Collection Time Receive d Time (Source) Location / / Volume Laterality Blood (Blood, 2021 12:57 2021 1:48 Venous) AM CDT PM CDT Simran Helm P.A.-C., M.S. 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 May crush using the [employer] system. warfarin tablet 0.5 mg (COUMADIN) Given [...] Daily, First dose on Mon12/02/21 at 0900 amoxicillin-pot clavulanate 500-125 mg per [...] Provider: Yadi Lewis R.N. - Reason: Patient/family refused)214 (Not Given - Provider: Yohan Edgar R.N. [...] (Given - Provider: Paty Pina M.S., R.N., Pablo.Cinthya.S.R.N.)1122 (Given - Provider: Yadi Lewis R.N.)1603 (Given [...] Yohan Edgar R.N.) 0813 (Given - Provider: Suzy EspinalNBailey) 25 mg, oral, 2 times daily, First [...] (Given - Provider: Paty Pina M.S., R.N., C.Cinthya.S.R.N.) 0652 (Given - Provider: Yohan Cosme on, R.N.) 0633 (Given - Provider: Yohan Cosme on, R.N.) 40 mg, oral, Daily before breakfast, [...] (DEMADEX) 0801 (Given - Provide r: Yadi Lweis R.N.) 0640 (Held by provider - Provider: Andra Benson PBaileyABailey-CBailey - Reason: Other - Comment: Per Neph)0900 (Dose Auto Held - Provider: Marlyn Benson PBaileyABailey-CBailey) 0900 (Not Given - Provider: Anita bellamy R.N. - Reason: See Provider Order)1613 (Unheld by provider - Provider: Discharge Provider, Automatic) 40 mg, oral, Daily, First dose on Alyssa 12/02/21 at 0900 warfarin management (COUMADIN) 1700 (Due) [...] or split tablet. May crush using the [employer] system. warfarin tablet 1.5 mg (COUMADIN) (COMPLETED) 171 (Given - Provider: Yadi Lewis R.N.) 1.5 mg, oral, Once, On Mon12/07/21 at 1700, For 1 dose PRN Medication Order 12/06/2021 12/07/2021 12/08/2021 calcium carbonate chewable tablet 400 mg of calcium (TUMS) 400 mg of calcium, oral, Every 2 hour FL N, heartburn, indigestion, Starting on Alyssa 12/02/21 at 0059, Doses listed are in mg of elemental calcium. Take with food. 500 mg calcium carbonate contains 200 mg of elemental calcium. iohexoL 300 mg iodine/mL solution (OMNIPAQUE) (COMPLET ED) 1402 (Given - Provider: Glenn Spencer M.D.) Code/trauma/sedation medication, Starting on Mon12/06/21 at 1402 documented in this encounter
--- OUTSIDE RECORDS SUMMARY | 2022-06-14 06:22 | XMS_ITS | Encounter Summary ---
:1940 Author Organization [facility] Address [address] [place] [address] Care Team Providers Name Role Phone Unavailable Primary Care Provider Unavailable Reason for Visit Outpatient (Routine) - Closed Specialty Diagnoses / Procedures Referred By Contact Refer red To Contact Pulmonary Medicine Diagnoses Achalasia Cough With Hemorrhage Shortness Of Breath Dysphagia Gastroesophageal Reflux Disease Without Esophagitis Laparoscopic Myotomy For Achalasia Status Post Chronic Kidney Disease Stage 4 Glomerular Filtration Rate 15-29 ([facility]) [facility] Laura GranadosBBaileyS. 200 [place] [address] Referral ID Status Reason Start Date Expiration Date Visits V isits Requested Authorized [id number] Closed Specialty 02/14/2019 02/14/2020 1 1 Services Required Encounter Details Date Type Department Care Team Description 02/20/2019 Comprehensive Visit Division of Feroz Bo a; Pulmonary Jesu Mendes, Cough With He morrhage; Medicine in M.D. Shortness Of Breath; [place], [address] [place] [address] Dysphagia; [place], [place] Gastroesophageal Reflux Dise ase Without Esophagitis; [address] [place] [phone] Laparoscopic Myotomy For Achalasia Statu s Post; [place], [place] [phone] Chronic Kidney Disease Stage 4 Glomerular Filtration Rate 15-29 ([facility]) [id number] (Work) [phone] Social History Tobacco Use Types Packs/Day Years [...] How often do you attend hoahaoism or church More than 4 time s per year 04/11/2022 services? Do you belong to any clubs or organizations Yes 04/11/2022 such as hoahaoism groups, unions, fraCard Isle or athletic groups, or school groups? How [...] PFT's-mild restriction with TLC 66% predicted. Chest p-tax-iyyllachi patchy infiltrate and atelectasis with prominent central [...] Support Nutrition Ankita Smyth M.D., Ph.D. [address] [place] [phone] Ace Morris, [place]ON[place], [place] [address] [place] [phone] 06/20/2022 Comprehensive Visit Gastroenterology and [facility] Maurice Mendes M.D., Ph.D. [address] [place] [phone] 06/22/2022 Appointment Radiology Maurice Smyth M.D., Ph.D. [address] [place] [phone] 07/12/2022 Clinical Communication Admitting/Central Scheduling 08/31/2022 Appointment Gastroenterology and [facility] Maurice Mendes M.D., Ph.D. [address] [place] [phone] 09/01/2022 Appointment Gastroenterology and [facility] Maurice Mendes M.D., Ph.D. [address] [place] [phone] 09/05/2022 Appointment Gastroenterology and [facility] Maurice Mendes M.D., Ph.D. [address] [place] [phone] documented as of this encounter Visit Diagnoses Diagnosis Achalasia Cough With Hemorrhage Shortness Of Breath Dysphagia Gastroesophageal Reflux Disease Without Esophagitis Laparoscopic Myotomy For Achalasia Statu s Post Chronic Kidney Disease Stage 4 Glomerula r Filtration Rate 15-29 (HCC) documented in this encounter
--- OUTSIDE RECORDS SUMMARY | 2022-06-14 06:22 | XMS_ITS | Encounter Summary ---
:1940 Author Organization [facility] Address [address] [place] [address] Care Team Providers Name Role Phone Unavailable Primary Care Provider Unavailable Reason for Visit Outpatient (Routine) - Closed Specialty Diagnoses / Referred By Referred To Cont act Procedures Contact Gastroenterology and [facility] Laura GranadosB.S. 200 [place] [address] Referral ID Status Reason Start Date Expiration Date Visits Requ ested Visits Authorized [id number] Closed 02/14/2019 02/14/2020 1 1 Encounter Details Date Type Department Care Team Description 02/20/2019 Office Visit Division of Kelechi Werner ([place] Gastroenterology in [place], Dx) [place], [place] Ph.D. [address] [place] [phone] Social History Tobacco Use Types Packs/Day [...] or relatives? How often do you attend scientology or roman catholic More than 4 time s per year 04/11/2022 services? Do you belong to any clubs or organizations Yes 04/11/2022 such as scientology groups, unions, fraternal or athletic groups, or [...] Support Nutrition Ankita Smyth M.D., Ph.D. 200 [place] [phone] Ace Morris, ALONAN, [place] [address] [place] [phone] 06/20/2022 Comprehensive Visit Gastroenterology and [facility], Hepatology Maurice Mendes M.D., Ph.D. [address] [place] [phone] 06/22/2022 Appointment Radiology Maurice Smyth M.D., Ph.D. [address] [place] [phone] 07/12/2022 Clinical Communication Admitting/Central Scheduling 08/31/2022 Appointment Gastroenterology and [facility] Maurice Mendes M.D., Ph.D. [address] [place] [phone] 09/01/2022 Appointment Gastroenterology and [facility] Maurice Mendes M.D., Ph.D. [address] [place] [phone] 09/05/2022 Appointment Gastroenterology and [facility] Maurice Mendes M.D., Ph.D. [address] [place] [phone] documented as of this encounter Visit Diagnoses Diagnosis Achalasia - Primary documented in this encounter
--- OUTSIDE RECORDS SUMMARY | 2022-06-14 06:22 | XMS_ITS | Encounter Summary ---
:1940 Author Organization [facility] Address [address] [place] [address] Care Team Providers Name Role Phone Unavailable Primary Care Provider Unavailable Encounter Details Date Type Department Care Team Description 02/18/2019 Anesthesia Event Division of Stas Blevins APRN, LENS HARDENER [address] [place] [phone] [facility] [address] [place] [address] [place], [place] [address] [place] [phone] Anesthesia Record Procedure Summary Procedure Name Responsible Anesthesia Start Anesthesia Stop Anesthesiologist Time Time EGD Juan Pablo Blevins APRN, 02/18/19 1536 02/18 1615 (ESOPHAGOGASTRODUODE LENS HARDENER NOSCOPY) RESTRICTED Events Date Time Event Comment [...] How often do you attend voodoo or cheondoism More than 4 time s [...] Room / Location: Division of Gastroenterology in [place], [place] Anesthesia Start: 1536 Anesthesia Stop: 1615 [...] Support Nutrition Ankita Smyth M.D., Ph.D. [address] [place] [phone] Ace Morris, RDN, LD 701 [place] [phone] 06/20/2022 Comprehensive Visit Gastroenterology and [facility], Hepatology Maurice Mendes M.D., Ph.D. [address] [place] [phone] 06/22/2022 Appointment Radiology Maurice Smyth M.D., Ph.D. [address] [place] [phone] 07/12/2022 Clinical Communication Admitting/Central Scheduling 08/31/2022 Appointment Gastroenterology and [facility] Maurice Mendes M.D., Ph.D. [address] [place] [phone] 09/01/2022 Appointment Gastroenterology and [facility] Maurice Mendes M.D., Ph.D. [address] [place] [phone] 09/05/2022 Appointment Gastroenterology and [facility] Maurice Mendes M.D., Ph.D. [address] [place] [phone] documented as of this encounter Visit Diagnoses [...]
--- OUTSIDE RECORDS SUMMARY | 2022-06-14 06:22 | XMS_ITS | Encounter Summary ---
:1940 Author Organization [facility] Address [address] [place] [address] Care Team Providers Name Role Phone Unavailable Primary Care Provider Unavailable Encounter Details Date Type Department Care Team Description 2021 Ancillary Procedure Department of Radiology Gavin Andujar, in [facility], C.N.P. [address] [facility] [address] [place] [address] [place] [phone] Social History Tobacco Use Types Packs/Day Years [...] How often do you attend yazidism or congregation More than 4 time s [...] Support Nutrition Ankita Smyth M.D., Ph.D. [address] [place] [phone] Ace Morris, ALON[place], [place] [address] [place] [phone] 06/20/2022 Comprehensive Visit Gastroenterology and [facility] Maurice Mendes M.D., Ph.D. [address] [place] [phone] 06/22/2022 Appointment Radiology Maurice Smyth M.D., Ph.D. [address] [place] [phone] 07/12/2022 Clinical Communication Admitting/Central Scheduling 08/31/2022 Appointment Gastroenterology and [facility] Maurice Mendes M.D., Ph.D. [address] [place] [phone] 09/01/2022 Appointment Gastroenterology and [facility] Maurice Mendes M.D., Ph.D. [address] [place] [phone] 09/05/2022 Appointment Gastroenterology and [facility] Maurice Mendes M.D., Ph.D. [address] [place] [phone] documented as of this encounter Procedures Procedure [...]
--- OUTSIDE RECORDS SUMMARY | 2022-06-14 06:22 | XMS_ITS | Encounter Summary ---
:1940 Author Organization [facility] Address [address] [place] [address] Care Team Providers Name Role Phone Unavailable Primary Care Provider Unavailable Reason for Referral Outpatient (Routine) - Closed Specialty Diagnoses / Procedures Referred By Contact Refer red To Contact Diagnoses Achalasia Guillermo Werner M.D., [facility] Procedures FL Esophagram MT XR ESOPHAGUS HC XR ESOPHAGUS MT XR ESOPHAGUS Ph.D. 200 [place] [address] Referral ID Status Reason Start Date Expiration Date Visits Requ ested Visits Authorized [id number] Closed 12/17/2018 12/17/2019 1 1 Reason for Visit Outpatient (Routine) - Closed Specialty Diagnoses / Procedures Referred By Contact Refer red To Contact Diagnoses Achalasia Guillermo Werner M.D., [facility] Procedures FL Esophagram MT XR ESOPHAGUS HC XR ESOPHAGUS MT XR ESOPHAGUS Ph.D. 200 [place] [address] Referral ID Status Reason Start Date Expiration Date Visits Requ ested Visits Authorized [id number] Closed 12/17/2018 12/17/2019 1 1 Encounter Details Date Type Department Care Team Description 02/15/2019 Hospital Encounter Department of Radiology, Cinthya Werner, Achalasia Alcaraz reyn Lugo M.D., Ph.D. [place], [place] [address] [place] [phone] Social History Tobacco Use Types [...] How often do you attend lutheran or rastafari More than 4 time s per year 04/11/2022 services? Do you belong to any clubs or organizations Yes 04/11/2022 such as lutheran groups, unions, fraAlianza or athletic groups, or school groups? How [...] 2 mg 1 mg on //Mon 0 12/2006/06/2022 tablet and 2 mg on ///Sat. documented as of this encounter Plan of Treatment Upcoming Encounters Date Type Specialty Care Team Description 06/16/2022 Clinical Support Nutrition Ankita Smyth M.D., Ph.D. [address] [place] [phone] Ace Morris, RDN, [place] [address] [place] [phone] 06/20/2022 Comprehensive Visit Gastroenterology and [facility] Maurice Mendes M.D., Ph.D. [address] [place] [phone] 06/22/2022 Appointment Radiology Maurice Smyth M.D., Ph.D. [address] [place] [phone] 07/12/2022 Clinical Communication Admitting/Central Scheduling 08/31/2022 Appointment Gastroenterology and [facility] Maurice Mendes M.D., Ph.D. [address] [place] [phone] 09/01/2022 Appointment Gastroenterology and [facility] Maurice Mendes M.D., Ph.D. [address] [place] [phone] 09/05/2022 Appointment Gastroenterology and [facility] Maurice Mendes M.D., Ph.D. [address] [place] [phone] documented as of this encounter Procedures Procedure [...]
--- OUTSIDE RECORDS SUMMARY | 2022-06-14 06:22 | XMS_ITS | Encounter Summary ---
:1940 Author Organization [facility] Address [address] [place] [address] Care Team Providers Name Role Phone Unavailable Primary Care Provider Unavailable Encounter Details Date Type Department Care Team Description 02/14/2019 Hospital Encounter Department of Marilin, Achalasi a; Laboratory Medicine Chicohankar, Cough Wi th Hemorrhage; and Pathology, M.B.B.S. Shortness Of Breath; [facility] in Dysphagi a; [facility] Reflux Disease Without Esophagitis; [place] Laparoscopic Myotomy For Ach alasia Status Post; [address] [facility] Chronic Kidney Disease Stage 4 Glomerular Filtration Rate 15-29 (HCC) [place] [address] Social History Tobacco Use Types Packs/Day Years [...] How often do you attend baptism or quaker More than 4 time s [...] 2 mg 1 mg on //Sun 0 05/06/06/2022 tablet and 2 mg on ///Sat. documented as of this encounter Plan of Treatment Upcoming Encounters Date Type Specialty Care Team Description 06/16/2022 Clinical Support Nutrition Ankita Smyth M.D., Ph.D. [address] [place] [phone] Ace Morris, RDN, LD 701 [place] [phone] 06/20/2022 Comprehensive Visit Gastroenterology and Libra Hepatology Maurice Mendes M.D., Ph.D. [address] [place] [phone] 06/22/2022 Appointment Radiology Maurice Smyth M.D., Ph.D. [address] [place] [phone] 07/12/2022 Clinical Communication Admitting/Central Scheduling 08/31/2022 Appointment Gastroenterology and Libra Hepatology Maurice Mendes M.D., Ph.D. [address] [place] [phone] 09/01/2022 Appointment Gastroenterology and Libra Hepatology Maurice Mendes M.D., Ph.D. [address] [place] [phone] 09/05/2022 Appointment Gastroenterology and Libra Hepatology Maurice Mendes M.D., Ph.D. [address] [place] [phone] documented as of this encounter Procedures Procedure [...] Prothrombin Time (PT/INR) (02/14/2019 10:20 AM CDT) [facility] Method Time Signature Prothrombin 15.1 (H) 9.4 [...] Organization Address City/State/ZIP Code Phon e Number [facility] - [address] [place], [place] [address] [facility] (ABNORMAL) Alkaline Phosphatase, Total and Isoenzymes (02/14/2019 10:20 AM CDT) [facility] [employer] Method Time Signature Alkaline 302 (H) 40 [...] Venous) AM CDT 10:41 AM CDT Narrative [facility] - [facility] - 02/15/2019 12:05 PM CDT Specimen Information: Specimen ID: [id number] Specimen Type: Blood Specimen Collection Start Date: 02/15/20 10:20 AM Specimen Received Date: 02/14/2019 10:41 AM Specimen ID: [id number] Specimen Type: Blood Specimen Collection Start Date: 02/15/20 10:20 AM Specimen Received Date: 02/14/2019 11:22 AM Darwin RicoSBailey LAB BLOOD NON ADD-ON Performing Organization Address City/[facility] Code Phon e Number [facility] - [address] [place] [phone] [facility] (ABNORMAL) PTH (Parathyroid Hormone) (02/14/2019 [...] RicoS. LAB BLOOD ADD-ON Performing Organization Address City/[facility] Phon e Number [facility] - [address] 25-Hydroxyvitamin D2 and D3 (02/14/2019 10:20 [...] Organization Address City/State/ZIP Code Phon e Number [facility] [address] [place] [phone] 05 [facility] Uric Acid (02/14/2019 10:20 AM CDT) P athologist Signature Uric Acid, S 6.2 3.7 - 8.0 02/14/2019 mg/dL 12:03 PM CDT Specimen Anatomical Collection Method Collection Time Receive d Time (Source) Location / / Volume Laterality Blood (Blood, 02/14/2019 10:20 02/14/2019 Venous) AM CDT 10:41 AM CDT Darwin Giles LAB BLOOD ADD-ON Performing Organization Address City/State/ZIP Code Phon e Number [facility] - [address] [place] [phone] [facility] (ABNORMAL) CBC with Differential (02/14/2019 [...] Organization Address City/State/ZIP Code Phon e Number [facility] - [address] [place], [place] [address] [facility] (ABNORMAL) Renal Function Panel (02/14/2019 [...] >=60 02/14/2019 Black/ mL/min/BSA 12:03 PM CDT Citizen Of [place] Comment: ----ADDITIONAL INFORMATION---- Estimated GFR calculated using [...] Organization Address City/State/ZIP Code Phon e Number [facility] - [address] [place] [phone] [facility] documented in this encounter Visit Diagnoses Diagnosis Achalasia Cough With Hemorrhage Shortness Of Breath Dysphagia Gastroesophageal Reflux Disease Without Esophagitis Laparoscopic Myotomy For Achalasia Statu s Post Chronic Kidney Disease Stage 4 Glomerula r Filtration Rate 15-29 (HCC) documented in this encounter
--- OUTSIDE RECORDS SUMMARY | 2022-06-14 06:22 | XMS_ITS | Encounter Summary ---
:1940 Author Organization [facility] Address [address] [place] [address] Care Team Providers Name Role Phone Unavailable Primary Care Provider Unavailable Reason for Referral Outpatient (Routine) - Closed Specialty Diagnoses / Procedures Referred By Contact Refer red To Contact Pulmonary Medicine Diagnoses Empyema Pleural (HCC) [facility] Estela, M.S. [address] [place] [phone] Referral ID Status Reason Start Date Expiration Date Visits Requ ested Visits Authorized [id number] Closed 12/07/2021 12/07/2022 1 1 Encounter Details Date Type Department Care Team Description 12/07/2021 Clinical Communication RST HIM Maria G Adame, [address] [place] [address] Estela, M.S. [place], [place] [address] [place] [phone] [place] [address] Social History Tobacco Use Types Packs/Day Years [...] How often do you attend yazidism or worship More than 4 time s per year 04/11/2022 services? Do you belong to any clubs or organizations Yes 04/11/2022 such as yazidism groups, unions, fraipDatatel or athletic groups, or school groups? How [...] Nutrition Ankita Smyth M.D., Ph.D. [address] [place] [address] [phone] Ace Morris, JANY, LD [address] [place] [phone] 06/20/2022 Comprehensive Visit Gastroenterology and Libra, Hepatology Maurice Mendes M.D., Ph.D. [address] [place] [phone] 06/22/2022 Appointment Radiology Maurice Smyth M.D., Ph.D. [address] [place] [phone] 07/12/2022 Clinical Communication Admitting/Central Scheduling 08/31/2022 Appointment Gastroenterology and Libra, Hepatology Maurice Mendes M.D., Ph.D. [address] [place] [phone] 09/01/2022 Appointment Gastroenterology and Libra Hepatology Maurice Mendes M.D., Ph.D. [address] [place] [phone] 09/05/2022 Appointment Gastroenterology and Libra Hepatology Maurice Mendes M.D., Ph.D. [address] [place] [phone] Scheduled Referrals Name Type Priority Associated Diagnoses Order S [facility] Pulmonary Medicine Outpatient Referral Routine Empyema [...]
--- OUTSIDE RECORDS SUMMARY | 2022-06-14 06:22 | XMS_ITS | Encounter Summary ---
:1940 Author Organization [facility] Address [address] [place] [address] Care Team Providers Name Role Phone Unavailable [...] How often do you attend gnosticist or uatsdin More than 4 time s [...] Support Nutrition Ankita Smyth M.D., Ph.D. [address] [place] [phone] Ace Morris, JANY, LD 701 [place] [phone] 06/20/2022 Comprehensive Visit Gastroenterology and Libra Hepatology Maurice Mendes M.D., Ph.D. [address] [place] [phone] 06/22/2022 Appointment Radiology Maurice Smyth M.D., Ph.D. [address] [place] [phone] 07/12/2022 Clinical Communication Admitting/Central Scheduling 08/31/2022 Appointment Gastroenterology and Libra Hepattanya Mendes M.D., Ph.D. [address] [place] [phone] 09/01/2022 Appointment Gastroenterology and Libra Hepattanya Mendes M.D., Ph.D. [address] [place] [phone] 09/05/2022 Appointment Gastroenterology and Libra Hepatology Maurice Mendes M.D., Ph.D. [address] [place] [phone] documented as of this encounter Procedures Procedure [...]
--- OUTSIDE RECORDS SUMMARY | 2022-06-14 06:22 | XMS_ITS | Encounter Summary ---
:1940 Author Organization [facility] Address [address] [place] [address] Care Team Providers Name Role Phone Unavailable [...] How often do you attend cheondoism or hinduism More than 4 time s [...] Nutrition Ankita Smyth M.D., Ph.D. [address] [place] [phone] Ace Morris, ALONAN, LD [address] [place] [phone] 06/20/2022 Comprehensive Visit Gastroenterology and Libra Hepatology Maurice Mendes M.D., Ph.D. [address] [place] [phone] 06/22/2022 Appointment Radiology Maurice Smyth M.D., Ph.D. [address] [place] [phone] 07/12/2022 Clinical Communication Admitting/Central Scheduling 08/31/2022 Appointment Gastroenterology and Libra Hepatology Maurice Mendes M.D., Ph.D. [address] [place] [phone] 09/01/2022 Appointment Gastroenterology and Libra Hepatology Maurice Mendes M.D., Ph.D. [address] [place] [phone] 09/05/2022 Appointment Gastroenterology and Libra Hepatology Maurice Mendes M.D., Ph.D. [address] [place] [phone] documented as of this encounter Procedures Procedure [...]
--- OUTSIDE RECORDS SUMMARY | 2022-06-14 06:22 | XMS_ITS | Encounter Summary ---
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 Cough With Hemorrhage; [place], [address] [place] [address] Shortness Of Breath; [place], [place] Dysphagia; [address] [place] [phone] Gastroesophageal Reflux Disease Without Esophagitis; [place], [place] [phone] Laparoscopic M yotomy For Achalasia Status Post [id number] (Work) [phone] Social History Tobacco Use Types Packs/Day Years [...] often do you attend oriental orthodox or catholic More than 4 time s [...] hasnever been biopsied. 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 He has also seen [...] BREATH POST 02/20/2019 4.05 L Final ??? [id number] 02/20/2019 98.00 % Final ??? [id number] 02/20/2019 96.00 % Final ??? PulseRest 02/20/2019 [...] PEF PRE 02/20/2019 6.09 L/s Final ??? MFQ22-29% 02/20/2019 1.30 L/s Final ??? FRCPLETH PROVBASE [...] to decline. Total time 30 minutes cell [id number] less than 50% counseling. Ferny Apodaca M.D. documented in this encounter Plan of Treatment Upcoming Encounters Date Type Specialty Care Team Description 06/16/2022 Clinical Support Nutrition Ankita Smyth M.D., Ph.D. [address] [place] [phone] Ace Morris, ALONAN, LD 701 [place] [phone] 06/20/2022 Comprehensive Visit Gastroenterology and Libra Hepatology Maurice Mendes M.D., Ph.D. [address] [place] [phone] 06/22/2022 Appointment Radiology Maurice Smyth M.D., Ph.D. [address] [place] [phone] 07/12/2022 Clinical Communication Admitting/Central Scheduling 08/31/2022 Appointment Gastroenterology and Libra Hepattanya Mendes M.D., Ph.D. [address] [place] [phone] 09/01/2022 Appointment Gastroenterology and Libra Hepattanya Mendes M.D., Ph.D. [address] [place] [phone] 09/05/2022 Appointment Gastroenterology and Libra Hepatology Maurice Mendes M.D., Ph.D. [address] [place] [phone] documented as of this encounter Visit Diagnoses Diagnosis Chronic Kidney Disease Stage 4 Glomerula r Filtration Rate 15-29 (HCC) - Primary Achalasia Cough With Hemorrhage Shortness Of Breath Dysphagia Gastroesophageal Reflux Disease Without Esophagitis Laparoscopic Myotomy For Achalasia Statu s Post documented in this encounter
--- OUTSIDE RECORDS SUMMARY | 2022-06-14 06:22 | XMS_ITS | Encounter Summary ---
:1940 Author Organization [facility] Address [address] [place] [address] Care Team Providers Name Role Phone Unavailable Primary Care Provider Unavailable Encounter Details Date Type Department Care Team Description 2021 Clinical Communication RST [facility] [address] [facility] Estela Mendes, M.S. [place], [place] [address] [facility] [phone] [place] [phone] Social History Tobacco Use Types Packs/Day Years [...] How often do you attend worship or scientology More than 4 time s per year [...] Nutrition Ankita Smyth M.D., Ph.D. [address] [place] [address] [phone] Ace Morris, RDN, LD 701 [place] [phone] 06/20/2022 Comprehensive Visit Gastroenterology and Libra Hepatology Maurice Mendes M.D., Ph.D. [address] [place] [phone] 06/22/2022 Appointment Radiology Maurice Smyth M.D., Ph.D. [address] [place] [phone] 07/12/2022 Clinical Communication Admitting/Central Scheduling 08/31/2022 Appointment Gastroenterology and Libra Hepatology Maurice Mendes M.D., Ph.D. [address] [place] [phone] 09/01/2022 Appointment Gastroenterology and Libra, Hepatology Maurice Mendes M.D., Ph.D. [address] [place] [phone] 09/05/2022 Appointment Gastroenterology and Libra Hepatology Maurice Mendes M.D., Ph.D. [address] [place] [phone] documented as of this encounter Visit Diagnoses Diagnosis Achalasia - Primary documented in this encounter Additional Health Concerns Infection Onset Date Last Indicated Resolved Time COVID19 Pending 12/09/2021 12/09/2021 12/09/2021 8:00 PM CDT COVID19 Pending 12/09/2021 12/09/2021 12/09/2021 8:26 PM CDT documented as of this encounter
--- OUTSIDE RECORDS SUMMARY | 2022-06-14 06:22 | XMS_ITS | Encounter Summary ---
:1940 Author Organization [facility] Address [address] [place] [address] Care Team Providers Name Role Phone Unavailable [...] How often do you attend bahai or pentecostal More than 4 time s [...] Support Nutrition Ankita Smyth M.D., Ph.D. [address] [place] [phone] Ace Morris, RDN, LD 701 [place] [phone] 06/20/2022 Comprehensive Visit Gastroenterology and Libra Hepatology Maurice Mendes M.D., Ph.D. [address] [place] [phone] 06/22/2022 Appointment Radiology Maurice Smyth M.D., Ph.D. [address] [place] [phone] 07/12/2022 Clinical Communication Admitting/Central Scheduling 08/31/2022 Appointment Gastroenterology and Libra Hepatology Maurice Mendes M.D., Ph.D. [address] [place] [phone] 09/01/2022 Appointment Gastroenterology and Libra Hepatology Maurice Mendes M.D., Ph.D. [address] [place] [phone] 09/05/2022 Appointment Gastroenterology and Libra Hepatology Maurice Mendes M.D., Ph.D. [address] [place] [phone] documented as of this encounter Procedures Procedure [...]
--- OUTSIDE RECORDS SUMMARY | 2022-06-14 06:22 | XMS_ITS | Encounter Summary ---
:1940 Author Organization [facility] Address [address] [place] [address] Care Team Providers Name Role Phone Unavailable Primary Care Provider Unavailable Encounter Details Date Type Department Care Team Description 02/14/2019 Hospital Encounter Department of Marilin, Achalasi a; [facility], Cough With Hemorrhage; [facility], [facility]; [facility]; [place] Gastroesophageal Reflux Dise ase Without Esophagitis; [address] [facility] Laparoscopic Myotomy For Ach alasia Status Post; [place], [place] Chronic Kidney Disease Stage 4 Glomerular Filtration Rate 15-29 ([facility]) [address] Social History Tobacco Use Types Packs/Day Years [...] How often do you attend synagogue or rastafarian More than 4 time s [...] Support Nutrition Ankita Smyth M.D., Ph.D. [address] [place] [phone] Ace Morris, RDN, LD [address] [place] [phone] 06/20/2022 Comprehensive Visit Gastroenterology and Libra Hepatology Maurice Mendes M.D., Ph.D. [address] [place] [phone] 06/22/2022 Appointment Radiology Maurice Smyth M.D., Ph.D. [address] [place] [phone] 07/12/2022 Clinical Communication Admitting/Central Scheduling 08/31/2022 Appointment Gastroenterology and Libra Hepatology Maurice Mendes M.D., Ph.D. [address] [place] [phone] 09/01/2022 Appointment Gastroenterology and Libra Hepattanya Mendes M.D., Ph.D. [address] [place] [phone] 09/05/2022 Appointment Gastroenterology and Libra Hepattayna Mendes M.D., Ph.D. [address] [place] [phone] documented as of this encounter Procedures Procedure [...]
--- OUTSIDE RECORDS SUMMARY | 2022-06-14 06:22 | XMS_ITS | Encounter Summary ---
:1940 Author Organization [facility] Address [address] [place] [address] Care Team Providers Name Role Phone Unavailable Primary Care Provider Unavailable Encounter Details Date Type Department Care Team Description 2021 Ancillary Procedure Department of Radiology Gavin Andujar, in [facility] DWIGHT, C.N.P. [address] [facility] [address] [place] [address] [place] [phone] Social History Tobacco Use Types Packs/Day Years [...] How often do you attend yarsanism or voodoo More than 4 time s per year 04/11/2022 services? Do you belong to any clubs or organizations Yes 04/11/2022 such as yarsanism groups, unions, fraternal or athletic groups, or [...] Nutrition Ankita Smyth M.D., Ph.D. [address] [place] [phone] Ace Morris, ALONAN, LD [address] [place] [phone] 06/20/2022 Comprehensive Visit Gastroenterology and Libra Hepatology Maurice Mendes M.D., Ph.D. [address] [place] [phone] 06/22/2022 Appointment Radiology Maurice Smyth M.D., Ph.D. [address] [place] [phone] 07/12/2022 Clinical Communication Admitting/Central Scheduling 08/31/2022 Appointment Gastroenterology and Libra Hepatology Maurice Mendes M.D., Ph.D. [address] [place] [phone] 09/01/2022 Appointment Gastroenterology and Libra Hepatology Maurice Mendes M.D., Ph.D. [address] [place] [phone] 09/05/2022 Appointment Gastroenterology and Libra Hepatology Maurice Mendes M.D., Ph.D. [address] [place] [phone] documented as of this encounter Procedures Procedure [...]
--- OUTSIDE RECORDS SUMMARY | 2022-06-14 06:22 | XMS_ITS | Encounter Summary ---
:1940 Author Organization [facility] Address [address] [place] [address] Care Team Providers Name Role Phone Unavailable [...] or relatives? How often do you attend holiness or holiness More than 4 time s per year 04/11/2022 services? Do you belong to any clubs or organizations Yes 04/11/2022 such as holiness groups, unions, fraternal or athletic groups, or [...] Support Nutrition Ankita Smyth M.D., Ph.D. [address] [place] [phone] Ace Morris, ALONAN, LD [address] [place] [phone] 06/20/2022 Comprehensive Visit Gastroenterology and Libra Hepatology Maurice Mendes M.D., Ph.D. [address] [place] [phone] 06/22/2022 Appointment Radiology Maurice Smyth M.D., Ph.D. [address] [place] [phone] 07/12/2022 Clinical Communication Admitting/Central Scheduling 08/31/2022 Appointment Gastroenterology and Libra Hepatology Maurice Mendes M.D., Ph.D. [address] [place] [phone] 09/01/2022 Appointment Gastroenterology and Libra Hepatology Maurice Mendes M.D., Ph.D. [address] [place] [phone] 09/05/2022 Appointment Gastroenterology and Libra Hepatology Maurice Mendes M.D., Ph.D. [address] [place] [phone] documented as of this encounter Procedures Procedure [...]
--- OUTSIDE RECORDS SUMMARY | 2022-06-14 06:23 | XMS_ITS | Encounter Summary ---
:1940 Author Organization [facility] Address [address] [place] [address] Care Team Providers Name Role Phone Unavailable [...] How often do you attend sabianism or jain More than 4 time s [...] or slept in a correction (including now)? Sex Assigned at Date Recorded Male 04/11/2022 12:05 PM CDT documented as of this encounter Plan of Treatment Upcoming Encounters Date Type Specialty Care Team Description 06/16/2022 Clinical Support Nutrition Ankita Smyth M.D., Ph.D. [address] [place] [phone] Ace Morris, RDN, LD [address] [place] [address] 06/20/2022 Comprehensive Visit Gastroenterology and [facility] Maurice Mendes M.D., Ph.D. [address] [place] [phone] 06/22/2022 Appointment Radiology Maurice Smyth M.D., Ph.D. [address] [place] [phone] 07/12/2022 Clinical Communication Admitting/Central Scheduling 08/31/2022 Appointment Gastroenterology and [facility] Maurice Mendes M.D., Ph.D. [address] [place] [phone] 09/01/2022 Appointment Gastroenterology and [facility] Hepattanya Mendes M.D., Ph.D. [address] [place] [phone] 09/05/2022 Appointment Gastroenterology and [facility] Maurice Mendes M.D., Ph.D. [address] [place] [phone] documented as of this encounter Procedures Procedure Name Priority Date/Time Associated Comments Diagnosis US RETROPERITONEUM Routine 06/24/2002 9:19 Result s for this LIMITED PLUS AM [facility] procedure are i n RETROPERITONEUM LIMITED the results DOPPLER section. DX OUTSIDE IMAGE Routine 06/24/2002 6:38 Results for this INTERPRETATION AM [facility] procedure are in the results section. DX CHEST POST PICC Routine 06/21/2002 10:13 Resul ts for this PLACEMENT 1 VIEW PM [facility] procedure a re in the results section. DX CHEST POST PICC Routine 06/21/2002 6:11 Result s for this PLACEMENT 1 VIEW PM [facility] procedure a re in the results section. HXGENERAL PATHOLOGY Routine 06/21/2002 4:19 Resul ts for this REPORT PM [facility] procedure are i n the results section. ECG Routine 06/21/2002 10:38 Results for this AM [facility] procedure are i n the results section. CT ORBITS AND SELLA Routine 06/21/2002 8:27 Resul ts for this WITHOUT IV CONTRAST AM [facility] procedur e are in the results section. ECHOCARDIOGRAM Routine 06/20/2002 8:35 AM [facility] DX OUTSIDE IMAGE Routine 06/20/2002 6:32 Results for this INTERPRETATION AM [facility] procedure are in the results section. HXGENERAL PATHOLOGY Routine 06/19/2002 10:26 Resu lts for this REPORT AM [facility] procedure are i n the results section. HXPHYS SURG BLD ORDER Routine 06/18/2002 10:00 Re sults for this PM [facility] procedure are i n the results section. US ABDOMEN COMPLETE Routine 06/18/2002 9:39 Resul ts for this AM [facility] procedure are i n the results section. MR CERVICAL AND THORACIC Routine 06/18/2002 8:24 Results for this WITHOUT AND WITH IV AM [facility] procedur e are in CONTRAST the results section. ECG Routine 06/16/2002 9:34 Results for this PM [facility] procedure are i n the results section. DX CHEST AP OR PA AND Routine 06/16/2002 5:55 Res ults for this LATERAL 2 VIEWS PM [facility] procedure ar e in the results section. CT HEAD WITHOUT IV Routine 06/16/2002 4:28 Result s for this CONTRAST PM [facility] procedure are i n the results section. documented in this encounter Results US Retroperitoneum Limited plus Retroperitoneum Limited Doppler (06/24/2002 9:19 AM [facility]) Anatomical Region Laterality Modality Abdomen, Pelvis N/A Ultrasound Specimen (Source) Anatomical Collection Method Collection Time Re ceived Time Location / / Volume Laterality 06/24/2002 9:19 AM [facility] Narrative 06/24/2002 11:05 AM [facility] 24-Jun-2002 09:19:00 ??Exam: US Retro Lmtd w Doppler Lmtd Indications: INSUFFICIENCY^[id number] ORIGINAL REPORT - 24-Jun-2002 11:05:00 The [...] Electronically signed by: ?? Aiden Lafleur MD [phone] ([id number]) 24-Jun-20 02 11:05 Procedure Note Provider, Historical - 11/24/2017Formatt ing of this note might be different from the original. 24-Jun-2002 09:19:00 Exam: US Retro Lmtd w Doppler Lmtd Indications: INSUFFICIENCY^[id number] ORIGINAL REPORT - 24-Jun-2002 11:05:00 The [...] Dia.210 Electronically signed by: Aiden Lafleur MD [phone] ([id number]) 24-Jun-20 02 11:05 Jamal Camejo M.D. IMMike US PROCEDURES DX Outside Image Interpretation (06/24/2002 6:38 AM [facility]) Anatomical Region Laterality Modality N/A Radiographic Imaging Specimen (Source) Anatomical Collection Method Collection Time Re ceived Time Location / / Volume Laterality 06/24/2002 6:38 AM [facility] Narrative 06/24/2002 9:30 AM [facility] 24-Jun-2002 06:38:00 ??Exam: Interp of OUTSIDE X-RAY [...] kidneys on the submitted images. ?? (06-24-02) ??(362) Electronically signed by: ?? Sena Tsang ??24-Jun-2002 0 9:30 Procedure Note Peng Santiago M.D., Ph.D. - 8 24-Jun-2002 06:38:00 Exam: Interp of OUT SIDE X-RAY Indications: ORIGINAL REPORT - 24-Jun-2002 09:30:00 Outside MRA of the renal arteries perfor [facility] 06-04-01. The examination is moderately limited. Visualization [...] the kidneys on the submitted images. (06-24-02) (399) Electronically signed by: Sena Tsang 24-Jun-2002 09: 30 Zeb Cotton M.D. IMG DIAGNOSTIC IMAGING PROCE DURES DX Chest Post PICC Placement 1 View (06/21/2002 10:13 PM [facility]) Anatomical Region Laterality Modality Chest N/A Radiographic Imaging Specimen (Source) Anatomical Collection Method Collection Time Re ceived Time Location / / Volume Laterality 06/21/2002 10:13 PM [facility] Narrative 06/22/2002 8:19 AM [facility] 21-Jun-2002 22:13:00 ??Exam: Chest-PICC Indications: Right PICC Tip Placement ORIGINAL REPORT - 21-Jun-2002 22:45:00 Right PICC tip in the proximal right sub clavian vein. Electronically signed by: ?? Jossy Valdes MD [phone] ([id number]) 21-Jun-20 02 22:45 I have reviewed [...] vein. Electronically signed by: Jossy Valdes MD [phone] ([id number]) 21-Jun-20 02 22:45 I have reviewed the films/images and agr ee with the above interpretation. Electronically signed by: Miki Thomas MD. [id number] 22-Jun-2002 08:19 Jamal Camejo M.D. IMG DIAGNOSTIC IMAGING PROCE DURES DX Chest Post PICC Placement 1 View (06/21/2002 6:11 PM [facility]) Anatomical Region Laterality Modality Chest N/A Radiographic Imaging Specimen (Source) Anatomical Collection Method Collection Time Re ceived Time Location / / Volume Laterality 06/21/2002 6:11 PM [facility] Narrative 06/22/2002 12:05 PM [facility] 21-Jun-2002 18:11:00 ??Exam: Chest-PICC Indications: RIGHT PICC TIP PLACED ORIGINAL REPORT - 21-Jun-2002 19:03:00 Right PICC tip in RA. Cardiac enlargemen t. Electronically signed by: ?? Alivia Nur M.D. [phone] 21-Jun-2002 19:03 I have reviewed the films/images and agr ee with the above interpretation. Electronically signed by: ?? Candida Roberto MD [phone] 22-Jun-2002 12:05 Procedure Note Hiram Roberto M.D. - 11/24/2017Format ting of this note might be different from the original. 21-Jun-2002 18:11:00 Exam: Chest-PICC Indications: RIGHT PICC TIP PLACED ORIGINAL REPORT - 21-Jun-2002 19:03:00 Right PICC tip in RA. Cardiac enlargemen t. Electronically signed by: Alivia Nur M.D. [phone] 21-Jun-2002 19:03 I have reviewed the films/images and agr ee with the above interpretation. Electronically signed by: Candida Roberto MD [phone] 22-Jun-2002 12:05 Jamal Camejo M.D. IMG DIAGNOSTIC IMAGING PROCE SUKUMAR Carter general Pathology Report (06/21/2002 4:19 PM [facility]) Specimen Anatomical Collection Method Collection Time Receive d Time (Source) Location / / Volume Laterality 06/21/2002 4:19 PM 2 4:19 [facility] PM [facility] Narrative [facility] - 06/21/2002 4:19 PM [facility] 21Jun2002 General Biopsy Primary Physician: ?Cheng navarro Jr., M.D. ?([id number]) Requested By: ? Florentin lindquits M.D. ?? TISSUE DESCRIPTION: ?? A1. Bulb/second portion duodenum sma ll bowel - (5 pieces 0.2 - 0.3 cm. in diameter). B1. Lower ?? third esophagus - (4 pieces 0.1 - 0. 2 cm. in diameter). ?? [id number] A1, B1 ?? DIAGNOSIS: ?? A) Small [...] Biopsy Primary Physician: Jr Bailey Reyes M.D. ([id number]) Requested By: Florentin West M.D. TISSUE DESCRIPTION: A1. Bulb/second portion duodenum small bowel - (5 pieces 0.2 - 0.3 cm. in diameter). B1. Lower third esophagus - (4 pieces 0.1 - 0.2 c m. in diameter). [id number] A1, B1 DIAGNOSIS: A) Small bowel, duodenum, [...] Organization Address City/State/ZIP Code Phon e Number [facility] - [address] [place] [address] 05 [facility] ECG 12 Lead (06/21/2002 10:38 AM [facility]) Specimen (Source) Anatomical Collection Method Collection Time Re ceived Time Location / / Volume Laterality 06/21/2002 10:38 AM [facility] RADIOLOGY SYSTEM - 06/21/2002 10:59 AM [facility] 21Jun2002 10:38 VENTRICULAR RATE 64 Normal sinus rhythm Leftward axis When compared with ECG of 16-JUN-2002 21 :34, No significant change was found [id number]^EVERT ??^JONATHAN Procedure Note Jonathan Darden M.D. - 11/13/2017Formatt ing of this note might be different from the original. 21Jun2002 10:38 VENTRICULAR RATE 64 Normal sinus rhythm Leftward axis When compared with ECG of 16-JUN-2002 21 :34, No significant change was found [id number]^EVERT MOISE^JONATHAN Historical Provider ECG ORDERABLES Performing Organization Address City/State/ZIP Code Phon e Number [facility] RADIOLOGY SYSTEM [address] [place] [address], U SA [address] Orbits and Sella without IV Contrast (06/21/2002 8:27 AM [facility]) Anatomical Region Laterality Modality Head N/A Computed Tomography Specimen (Source) Anatomical Collection Method Collection Time Re ceived Time Location / / Volume Laterality 06/21/2002 8:27 AM [facility] Narrative 06/21/2002 11:48 AM [facility] 21-Jun-2002 08:27:00 ??Exam: CT PF/Sella/Orbit wo Indications: [...] Rubi Umanzor MD. [id number] 21-Jun-2002 11:[address] PROCEDURES Echocardiogram (06/20/2002 8:35 AM [facility]) Anatomical Region Laterality Modality Echocardiography Specimen (Source) Anatomical Collection Method Collection Time Re ceived Time Location / / Volume Laterality 06/20/2002 8:35 AM [facility] Historical Provider CV ECHO PROCEDURES DX Outside Image Interpretation (06/20/2002 6:32 AM [facility]) Anatomical Region Laterality Modality N/A Radiographic Imaging Specimen (Source) Anatomical Collection Method Collection Time Re ceived Time Location / / Volume Laterality 06/20/2002 6:32 AM [facility] Narrative 06/24/2002 10:40 AM [facility] 20-Jun-2002 06:32:00 ??Exam: Interp of OUTSIDE X-RAY [...] Remainder of the examination is negative. (06-24-02) (180) Electronically signed by: Sena Tsang 24-Jun-2002 10: 40 Historical Provider IMG DIAGNOSTIC IMAGING PROCE SUKUMAR Hx general Pathology Report (06/19/2002 10:26 AM [facility]) Specimen Anatomical Collection Method Collection Time Receive d Time (Source) Location / / Volume Laterality 06/19/2002 10:26 06/19/2002 AM [facility] 10:26 AM [facility] Narrative [facility] - 06/19/2002 10:26 AM [facility] [id number] Surgical Pathology Requested By: ? Zeb Cotton M.D. ?([id number]) ? Melecio Alfaro M.D. ?? TISSUE DESCRIPTION: ?? Tissue from brain (right frontal reg ion--2.0 x 2.0 x 0.3 cm in aggregate and 4.0 x 3.0 x 1.0 ?? cm in aggregate) ?? [id number] A1, A2, A3, A4, A5, A6 ?? DIAGNOSIS: ?? Brain, right frontal, biopsy: ??Orga nizing bacterial abscess. ??Gram stain demonstrates coccal ?? organisms. ??Stains for fungi are ne gative. ??Stains for mycobacteria (auramine rhodamine) show ?? rare bacilli that may represent cont aminants. ?? 21Jun2002 ?Zuleyma Millard M.D.:mirela ?? PRELIMINARY FROZEN SECTION CONSULTAT ION: ?? Organizing abscess. ??Hold over. Procedure Note 11/11/2017 [id number] Surgical Pathology Requested By: Zeb Cotton M.D. ( [id number]) Melecio Alfaro M.D. TISSUE DESCRIPTION: Tissue from brain (right frontal region --2.0 x 2.0 x 0.3 cm in aggregate and 4.0 x 3.0 x 1.0 cm in aggregate) [id number] A1, A2, A3, A4, A5, A6 DIAGNOSIS: Brain, right frontal, biopsy: Organizin g bacterial abscess. Gram stain demonstrates coccal organisms. Stains for fungi are negativ e. Stains for mycobacteria (auramine rhodamine) show rare bacilli that may represent contami nants. [id number] Zuleyma Millard M.D.:skp PRELIMINARY FROZEN SECTION CONSULTATION : Organizing abscess. Hold over. Zeb Cotton M.D. LAB PATHOLOGY/CYTOLOGY ORDER SHON Performing Organization Address City/[facility]/ZIP Code Phon e Number [facility] - [address] [place] [address] [facility] HX phys Surg Bld Order (06/18/2002 10:00 PM [facility]) Specimen Anatomical Collection Method Collection Time Receive d Time (Source) Location / / Volume Laterality 06/18/2002 10:00 06/18/2002 PM [facility] 10:55 PM [facility] Narrative [facility] - 06/18/2002 10:00 PM [facility] 18 Jun 2002 ?[id number] ? Ro ?22:00 ?? Phys Surg Bld Order: ?ABO/RH ? O POS ?Antibody Screen ?N eg ? Procedure Note 12/06/2017 18 Jun 2002 [id number] Ro 22:00 Phys Surg Bld Order: ABO/RH O POS Antibody Screen Neg Historical Provider LAB HISTORICAL ORDERS Performing Organization Address City/[facility]/ZIP Code Phon e Number [facility] - [address] [place] [address] [facility] US Abdomen Complete (06/18/2002 9:39 AM [facility]AD) Anatomical Region Laterality Modality Abdomen N/A Ultrasound Specimen (Source) Anatomical Collection Method Collection Time Re ceived Time Location / / Volume Laterality 06/18/2002 9:39 AM [facility] Narrative 06/18/2002 12:23 PM [facility] 18-Jun-2002 09:39:00 ??Exam: US Abdomen Complete Indications: r/o metastases^[id number] ?? do2 -300 ORIGINAL REPORT - 18-Jun-2002 [...] left measuring 10.4cm and the right 10.2cm [id number]-[id number]. Normal caliber abdo deion aorta. Examination is otherwise negative. ?? ELECTRONIC IMAGES ONLY--NO FILMS Ind: [id number] ?? Dia.120 ?? Electronically signed by: ?? Arvin Bland M.D. [phone] ([id number]) 18-Jun-20 02 12:23 Procedure Note Chava Bland M.D. - 11/24/2017Formatti ng of this note might be different from the original. 18-Jun-2002 09:39:00 Exam: US Abdomen Co mplete Indications: r/o metastases^[id number] do2-30 0 ORIGINAL REPORT - 18-Jun-2002 12:23:00 [...] left measuring 10.4cm and the right 10.2cm xpyi-md-leux. Normal caliber abdominal aorta. Examination is otherwise negative. ELECTRONIC IMAGES ONLY--NO FILMS Ind: 771.705 Dia.120 Electronically signed by: Arvin Bland M.D. [phone] ([id number]) 18-Jun-20 02 12:23 Rell Raza M.D. IMG US PROCEDURES MR Cervical And Thoracic Without And With Iv Contrast (06/18/2002 8:24 AM [facility]) Anatomical Region Laterality Modality Magnetic Resonance Specimen (Source) Anatomical Collection Method Collection Time Re ceived Time Location / / Volume Laterality 06/18/2002 8:24 AM [facility] Narrative 06/18/2002 10:14 AM [facility] 18-Jun-2002 08:24:00 ??Exam: MRI CSP & THSP [...] Lizzette Varela M.D. [phone] 18-Jun-2002 10:14 Vivek BAKER MRI PROCEDURES ECG 12 Lead (06/16/2002 9:34 PM [facility]) Specimen (Source) Anatomical Collection Method Collection Time Re ceived Time Location / / Volume Laterality 06/16/2002 9:34 PM [facility] RADIOLOGY SYSTEM - 06/17/2002 5:48 AM [facility] [id number] 21:34 VENTRICULAR RATE 61 Normal sinus rhythm Left axis deviation No previous ECGs available [id number]^ALVERTO ??^ACE Procedure Note Ace Ragland M.D. - 11/13/2017Forma tting of this note might be different from the original. 16Jun2002 21:34 VENTRICULAR RATE 61 Normal sinus rhythm Left axis deviation No previous ECGs available [id number]^ALVERTO MOISE^ACE Historical Provider ECG ORDERABLES Performing Organization Address City/State/ZIP Code Phon e Number [facility] RADIOLOGY SYSTEM [address] [place] [address], U SA DX Chest AP or PA and Lateral 2 Views (06/16/2002 5:55 PM [facility]) Anatomical Region Laterality Modality Chest N/A Radiographic Imaging Specimen (Source) Anatomical Collection Method Collection Time Re ceived Time Location / / Volume Laterality 06/16/2002 5:55 PM [facility] Narrative 06/17/2002 2:58 PM [facility] 16-Jun-2002 17:55:00 ??Exam: Chest-- 2 Views Indications: HERB ORIGINAL REPORT - 16-Jun-2002 18:18:00 Tiny amount of fluid or pleural thickeni ng left base. Calcified granuloma right upper lung. Electronically signed by: ?? Alcira Raya MD 16-Jun-2002 18:18 I have reviewed the films/images and agr ee with the above interpretation. Electronically signed by: ?? Ariel. ??King JOSE MARIA. ?? [id number] 17-Jun-2002 14 :58 Procedure Note Navneet Gomez [...] interpretation. Electronically signed by: [place]. [id number] 17-Jun-2002 14:58 Lizz BAKER DIAGNOSTIC IMAGING PROCE SUKUMAR CT Head without IV Contrast (06/16/2002 4:28 PM [facility]AD) Anatomical Region Laterality Modality Head N/A Computed Tomography Specimen (Source) Anatomical Collection Method Collection Time Re ceived Time Location / / Volume Laterality 06/16/2002 4:28 PM [facility] Narrative 06/17/2002 9:16 AM [facility] 16-Jun-2002 16:28:00 ??Exam: CT Head wo Indications: [...] M.D. [id number] 17-Jun-2002 09:16 Alana Garcia M.D. IMMike CT PROCEDURES documented in this encounter Visit Diagnoses Not on filedocumented in this encounter
--- OUTSIDE RECORDS SUMMARY | 2022-06-14 06:23 | XMS_ITS | Encounter Summary ---
:1940 Author Organization [facility] Address [address] [place] [address] Care Team Providers Name Role Phone Harish Silver MD Primary Care Provider Encounter Details Date Type Department Care Team Description 05/04/2022 Orders Only [facility] Sebastian Mohan MD [address] [place] [address] [place], [place] [phone] (Wo rk) Social History Tobacco Use [...] and its performa nce characteristics determined by [facility]. It has not been cleared or approved by the FDA. The laboratory is regulated under CLIA a s qualified to perform high complexity testing. This test is used fo r clinical purposes. It should not be regarded as investigational or fo r research. Test performed at [facility], [address] [place] [address]. Telephone . [facility] or: Steve Younger MD. Specimen (Source) Anatomical Collection Method Collection Time Re ceived Time Location / / Volume Laterality 05/04/2022 05/07/2022 9:47 AM CDT Narrative [facility] - 05/07/2022 Unless otherwise specified, test(s) performed at: [facility], [address] [place] [address] [place] [address] DIET CLERK: Dariel Doyle M.D., Ph.D For any questions, please call customer service at FREQUENCY:OTHER Resulting Agency Comment Specimen source: Serum Sebastian Charles MD LAB BLOOD ORDERABLES Performing Organization Address City/State/ZIP Code Phon e Number [facility] documented in this encounter Visit Diagnoses Not on filedocumented in this encounter Care Teams Deputy Controller Relationship Specialty Start Date End Date Harish Silver MD PCP - General 05/17/[address] [place] [address] documented as of this encounter
--- OUTSIDE RECORDS SUMMARY | 2022-06-14 06:23 | XMS_ITS | Encounter Summary ---
:1940 Author Organization [facility] Address [address] [place] [address] Care Team Providers Name Role Phone Harish Silver MD Primary Care Provider Encounter Details Date Type Department Care Team Description 06/01/2022 Orders Only [facility] Sebastian Mohan MD [address] [place] [address] [place], [place] [phone] (Wo rk) Social History Tobacco Use [...] Date/Time Associated Diagnosis Comme nts HEMATOLOGY Routine 06/01/2022 Results for thi s procedure are in the resu lts section. CHEMISTRY Routine 06/01/2022 Results for thi s procedure are in the resu lts section. CHEMISTRY Routine 06/01/2022 Results for thi s procedure are in the resu lts section. documented in this encounter Results (ABNORMAL) Spectrae Chemistry (06/01/2022) P athologist Signature PTH 147 (H) 16 - 80 APS SPECTRA pg/mL [facility] Specimen (Source) Anatomical Collection Method Collection Time Re ceived Time Location / / Volume Laterality 06/01/2022 06/02/2022 6:46 AM CDT Narrative APS SPECTRA [facility] - 06/02/2022 Unless otherwise specified, test(s) performed at: [facility], [address] [place], [place] [address]a d [facility] [place] [address] AUTO BUMPER MECHANIC: Dariel Doyle M.D., Ph.D For any questions, please call customer service at FREQUENCY:MONTHLY Resulting Agency Comment Specimen source: Plasma Sebastian Charles MD LAB BLOOD ORDERABLES Performing Organization Address City/State/ZIP Code Phon e Number APS SPECTRA [facility] (ABNORMAL) HEMATOLOGY (06/01/2022) [facility] gist Method Time Signature WBC 4.82 4.80 - APS SPECTRA 10.80 [facility] 1000/mcL RBC 3.72 (L) 4.70 - APS SPECTRA 6.10 [facility] mill/mcL Hemoglobin 11.7 (L) 14.0 - APS SPECTRA 18.0 g/dL [facility] Hemoglobin x 3 35.1 (L) 42.0 - APS SPECTRA 54.0 % [facility] Hematocrit 37.1 (L) 42.0 - APS SPECTRA 52.0 % [facility] MCV 100 80 - 100 APS SPECTRA fl [facility] MCH 31.5 (H) 27.0 - APS SPECTRA 31.0 pg [facility] MCHC 31.6 30.0 - APS SPECTRA 36.0 g/dL [facility] RDW 14.9 (H) 11.5 - APS [facility]RA 14.5 % [facility] Neutrophils 69.5 40.0 - APS SPECTRA 75.0 % [facility] Lymphocytes 13.4 (L) 19.0 - APS SPECTRA Relative 48.0 % [facility] Monocytes 7.1 3.0 - 10.0 APS SPECTRA % [facility] Eosinophils 8.1 (H) 0.0 - 7.0 APS SPECTRA Relative % [facility] Basophils 0.2 0.0 - 1.5 APS SPECTRA Relative % [facility] JUAN ANTONIO 1.8 0.0 - 4.0 APS SPECTRA % [facility] Specimen (Source) Anatomical Collection Method Collection Time Re ceived Time Location / / Volume Laterality 06/01/2022 06/02/2022 6:37 AM CDT Narrative APS SPECTRA [facility] - 06/02/2022 Unless otherwise specified, test(s) performed at: [facility], [address] [place] [address], [place] [address] AUTO BUMPER MECHANIC: Dariel Doyle M.D., Ph.D For any questions, please call customer service at FREQUENCY:MONTHLY Resulting Agency Comment Specimen source: Blood Sebastian Charles MD LAB BLOOD ORDERABLES Performing Organization Address City/State/ZIP Code Phon e Number APS SPECTRA [facility] (ABNORMAL) Spectrae Chemistry (06/01/2022) [facility] gist Method Time Signature BUN 28 (H) 6 - 19 APS SPECTRA mg/dL [facility] Creatinine 3.65 (H) 0.60 - APS SPECTRA 1.30 mg/dL [facility] BUN/Creatinine 7.7 (L) 10.0 - APS SPECTRA Ratio 20.0 [facility] Sodium 141 136 - 145 APS SPECTRA mEq/L [facility] Potassium 4.0 3.5 - 5.1 APS SPECTRA mEq/L [facility] Chloride 104 96 - 108 APS SPECTRA mEq/L [facility] Bicarbonate 31 20 - 31 APS SPECTRA (CO2) mEq/L [facility] Comment: Please note change in reference range. Calcium 8.8 8.7 - 10.4 mg/dL APS SPECTRA K [...] 29 0 - 54 APS SPECTRA [facility] Alkaline Phosphatase 194 (H) 40 - 129 U/L APS SP ECTRA [facility] Albumin 3.2 (L) 3.5 - 5.2 g/dL APS SPECT[facility] [place] Magnesium 1.6 1.6 - 2.6 mg/dL [facility]PS [facility]PECT[facility] Comment: Custom Exception Ferritin 111 22 - 322 ng/mL APS SPECT[facility] [place] Iron 57 45 - 160 mcg/dL [facility]PS [facility] UIBC 154 (L) 155 - 355 mcg/dL APS SPECTRA [facility] TIBC 211 185 - 515 mcg/dL APS SPECTRA [facility] Iron Saturation (TSat) 27 20 - 55 % APS SPE CTRA [facility] Specimen (Source) Anatomical Collection Method Collection Time Re ceived Time Location / / Volume Laterality 06/01/2022 06/02/2022 3:46 AM CDT Narrative APS SPECTRA [facility] - 06/02/2022 Unless otherwise specified, test(s) performed at: [facility], [address] [place] [address] AUTO BUMPER MECHANIC: Dariel Doyle M.D., Ph.D For any questions, please call customer service at FREQUENCY:MONTHLY Resulting Agency Comment Specimen source: Serum Sebastian Charles MD LAB BLOOD ORDERABLES Performing Organization Address City/State/ZIP Code Phon e Number APS SPECTRA [facility] documented in this encounter Visit Diagnoses Not on filedocumented in this encounter Care Teams Kier Operator Relationship Specialty Start Date End Date Harish Silver MD PCP - General 05/17/19 [address] [place] [address] documented as of this encounter
--- OUTSIDE RECORDS SUMMARY | 2022-06-14 06:23 | XMS_ITS | Encounter Summary ---
:1940 Author Organization [facility] Address [address] [place] [address] Care Team Providers Name Role Phone Unavailable [...] How often do you attend judaism or druze More than 4 time s [...] Nutrition Ankita Smyth M.D., Ph.D. [address] [place] [phone] Ace Morris, RDN, LD [address] [place] [address] 06/20/2022 Comprehensive Visit Gastroenterology and [facility] Maurice Mendes M.D., Ph.D. [address] [place] [phone] 06/22/2022 Appointment Radiology Maurice Smyth M.D., Ph.D. [address] [place] [phone] 07/12/2022 Clinical Communication Admitting/Central Scheduling 08/31/2022 Appointment Gastroenterology and Libra Hepattanya Mendes M.D., Ph.D. [address] [place] [phone] 09/01/2022 Appointment Gastroenterology and [facility]at[facility] Maurice Mendes M.D., Ph.D. [address] [place] [phone] 09/05/2022 Appointment Gastroenterology and [facility] Hep[facility] Maurice Mendes M.D., Ph.D. [address] [place] [phone] documented as of this encounter Visit Diagnoses Not on filedocumented in this encounter
--- OUTSIDE RECORDS SUMMARY | 2022-06-14 06:23 | XMS_ITS | Encounter Summary ---
:1940 Author Organization [facility] Address [address] [place] [address] Care Team Providers Name Role Phone Unavailable Primary Care Provider Unavailable Encounter Details Date Type Department Care Team Description 02/14/2019 Hospital Encounter Department of Marilin, Achalasi a; Radiology, [place] Subhankar, Cough With H emorrhage; [facility]; [place] Gastroesophageal Reflux Dise ase Without Esophagitis; [address] [facility] Laparoscopic Myotomy For Ach alasia Status Post; [place], [place] Chronic Kidney Disease Stage 4 Glomerular Filtration Rate 15-29 ([facility]) [phone] Social History Tobacco Use Types Packs/Day Years [...] often do you attend oriental orthodox or rastafari More than 4 time s [...] Support Nutrition Ankita Smyth M.D., Ph.D. [address] [place] [phone] Ace Morris, RDN, LD [address] [place] [phone] 06/20/2022 Comprehensive Visit Gastroenterology and [facility] Maurice Mendes M.D., Ph.D. [address] [place] [phone] 06/22/2022 Appointment Radiology Maurice Smyth M.D., Ph.D. [address] [place] [phone] 07/12/2022 Clinical Communication Admitting/Central Scheduling 08/31/2022 Appointment Gastroenterology and [facility] Hep[facility] Maurice Mendes M.D., Ph.D. [address] [place] [phone] 09/01/2022 Appointment Gastroenterology and [facility] Hepat[facility] Maurice Mendes M.D., Ph.D. [address] [place] [phone] 09/05/2022 Appointment Gastroenterology and Libra Hepattanya Mendes M.D., Ph.D. [address] [place] [phone] documented as of this encounter Procedures Procedure [...] to lower thoracic ve rtebral bodies. [facility] PROCED[facility] documented in this encounter Visit Diagnoses Diagnosis Achalasia Cough With Hemorrhage Shortness Of Breath Dysphagia Gastroesophageal Reflux Disease Without Esophagitis Laparoscopic Myotomy For Achalasia Statu s Post Chronic Kidney Disease Stage 4 Glomerula r Filtration Rate 15-29 (H[facility]) documented in this encounter
--- OUTSIDE RECORDS SUMMARY | 2022-06-14 06:23 | XMS_ITS | Encounter Summary ---
:1940 Author Organization [facility] Address [address] [place] [address] Care Team Providers Name Role Phone Unavailable Primary Care Provider Unavailable Encounter Details Date Type Department Care Team Description 07/30/2003 - Hospital Encounter HX RST SLEEP FLOOR Shivam, 08/06/2003 PRACTICE Juan Pablo Purdy M.D. [address] [place] [address] Social History Tobacco Use Types Packs/Day Years [...] Support Nutrition Ankita Smyth M.D., Ph.D. [address] [place] [address] [phone] Ace Morris, JANY, LD [address] [place] [phone] 06/20/2022 Comprehensive Visit Gastroenterology and [facility] Maurice Mendes M.D., Ph.D. [address] [place] [phone] 06/22/2022 Appointment Radiology Maurice Smyth M.D., Ph.D. [address] [place] [phone] 07/12/2022 Clinical Communication Admitting/Central Scheduling 08/31/2022 Appointment Gastroenterology and [facility] Hepat[facility] Maurice Mendes M.D., Ph.D. [address] [place] [phone] 09/01/2022 Appointment Gastroenterology and [facility] Hepatology Maurice Mendes M.D., Ph.D. [address] [place] [phone] 09/05/2022 Appointment Gastroenterology and [facility] Hepatology Maurice Mendse M.D., Ph.D. [address] [place] [phone] documented as of this encounter Visit Diagnoses Not on filedocumented in this encounter
--- OUTSIDE RECORDS SUMMARY | 2022-06-14 06:23 | XMS_ITS | Encounter Summary ---
:[address] [facility] Address [address] [place] [address] Care Team Providers Name Role Phone Unavailable Primary Care Provider Unavailable Encounter Details Date Type Department Care Team Description 07/29/2003 - Hospital Encounter HX RST SLEEP FLOOR Shivam, 08/05/2003 PRACTICE Juan Pablo Purdy M.D. [address] [place] [address] Social History Tobacco Use Types Packs/Day Years [...] How often do you attend samaritan or sabianism More than 4 time s [...] Support Nutrition Ankita Smyth M.D., Ph.D. [address] [place] [address] [phone] Ace Morris, JANY, LD [address] [place] [phone] 06/20/2022 Comprehensive Visit Gastroenterology and [facility] Hepat[facility] Maurice Mendes M.D., Ph.D. [address] [place] [phone] 06/22/2022 Appointment Radiology Maurice Smyth M.D., Ph.D. [address] [place] [phone] 07/12/2022 Clinical Communication Admitting/Central Scheduling 08/31/2022 Appointment Gastroenterology and [facility] Hepatology Maurice Mendes M.D., Ph.D. [address] [place] [phone] 09/01/2022 Appointment Gastroenterology and [facility] Hepatology Maurice Mendes M.D., Ph.D. [address] [place] [phone] 09/05/2022 Appointment Gastroenterology and [facility] Hepatology Maurice Mendes M.D., Ph.D. [address] [place] [phone] documented as of this encounter Visit Diagnoses Not on filedocumented in this encounter
--- OUTSIDE RECORDS SUMMARY | 2022-06-14 06:23 | XMS_ITS | Encounter Summary ---
:1940 Author Organization [facility] Address [address] [place] [address] Care Team Providers Name Role Phone Unavailable [...] How often do you attend judaism or spiritism More than 4 time s [...] Support Nutrition Ankita Smyth M.D., Ph.D. [address] [place] [phone] Ace Morris, RDN, LD [address] [place] [phone] 06/20/2022 Comprehensive Visit Gastroenterology and [facility] Hepatology Maurice Mendes M.D., Ph.D. [address] [place] [phone] 06/22/2022 Appointment Radiology Maurice Smyth M.D., Ph.D. [address] [place] [phone] 07/12/2022 Clinical Communication Admitting/Central Scheduling 08/31/2022 Appointment Gastroenterology and Libra Hepattanya Mendes M.D., Ph.D. [address] [place] [phone] 09/01/2022 Appointment Gastroenterology and [facility] Hepatology Maurice Mendes M.D., Ph.D. [address] [place] [phone] 09/05/2022 Appointment Gastroenterology and [facility] Hepatology Maurice Mendes M.D., Ph.D. [address] [place] [phone] documented as of this encounter Visit Diagnoses Not on filedocumented in this encounter
--- OUTSIDE RECORDS SUMMARY | 2022-06-14 06:23 | XMS_ITS | Encounter Summary ---
:1940 Author Organization [facility] Address [address] [place] [address] Care Team Providers Name Role Phone Unavailable Primary Care Provider Unavailable Encounter Details Date Type Department Care Team Description 02/11/2019 Clinical Communication Division of [facility] in [place], [place], [place] Ph.D. [address] [place] [phone] Social History Tobacco Use Types Packs/Day [...] How often do you attend islam or hindu More than 4 time s [...] slept in a skilled nursing (including now)? Sex Assigned at Date Recorded Male 04/11/2022 12:05 PM CDT documented as of this encounter Plan of Treatment Upcoming Encounters Date Type Specialty Care Team Description 06/16/2022 Clinical Support Nutrition Ankita Smyth M.D., Ph.D. [address] [place] [phone] Ace Morris, JANY, LD [address] [place] [phone] 06/20/2022 Comprehensive Visit Gastroenterology and Libra Hepattanya Mendes M.D., Ph.D. [address] [place] [phone] 06/22/2022 Appointment Radiology Maurice Smyth M.D., Ph.D. [address] [place] [phone] 07/12/2022 Clinical Communication Admitting/Central Scheduling 08/31/2022 Appointment Gastroenterology and [facility] Hepatology Maurice Mendes M.D., Ph.D. [address] [place] [phone] 09/01/2022 Appointment Gastroenterology and Libra Hepattanya Mendes M.D., Ph.D. [address] [place] [phone] 09/05/2022 Appointment Gastroenterology and Libra Hepattanya Mendes M.D., Ph.D. [address] [place] [phone] documented as of this encounter Visit Diagnoses Not on filedocumented in this encounter
--- OUTSIDE RECORDS SUMMARY | 2022-06-14 06:23 | XMS_ITS | Clinical Summary ---
:1940 Author Organization [facility] Address [address] [place] [address] Phone Care Team Providers Name Role Phone Harish Silver MD Primary Care Provider Encounters Date Type Specialty Care Team Description 06/01/2022 Orders Only Nephrology Sebastian Charles MD 06/01/2022 Treatment Sebastian Charles MD 05/11/2022 Orders Only NephSebastian Pandey MD 05/04/2022 Orders Only NephSebastian Pandey MD 05/04/2022 Treatment Sebastian Charles MD 04/22/2022 Orders Only NephSebastian Pandey MD 03/30/2022 Orders Only NephSebastian Pandey MD 03/30/2022 Treatment Sebastian Charles MD from Last 3 [...] Date Last Done Comments Hepatitis B Vaccine (1 of 5 - Risk 1961 12/22/2008, 1 09/21/2007, Dialysis 4-dose series) 06/19/2008 Influenza Vaccine (#1) 2022 05/06/2020, 05/28/2019, 06/13/2018, Additional history exists Pneumococcal Vaccine: 65+ Years Completed 11/05/2014, 01/19 Procedures Procedure Name Priority Date/Time Associated Diagnosis Comme nts CHEMISTRY Routine 06/01/2022 Results for thi s procedure are i n the results section . HEMATOLOGY Routine 06/01/2022 Results for thi s procedure are i n the results section . CHEMISTRY Routine 06/01/2022 Results for thi s procedure are i n the results section . TRACE ELEMENTS Routine 05/11/2022 Results for t his procedure are i n the results section . HEMATOLOGY Routine 05/11/2022 Results for thi s [...] from Last 3 Months Results (ABNORMAL) HEMATOLOGY (06/01/2022)Only the most recent of4 resultswithin the time period is included. [facility] gist Method Time Signature WBC 4.82 4.80 [...] 06/02/2022 Unless otherwise specified, test(s) performed at: [facility], [address] [place] [address], [place] [address] OPERATIONS AND MAINTENANCE TECHNICIAN: Dariel Doyle M.D., Ph.D For any questions, please call customer service at FREQUENCY:MONTHLY Resulting Agency Comment Specimen source: Blood Sebastian Charles MD LAB BLOOD ORDERABLES Performing Organization Address City/State/ZIP Code Phon e Number APS SPECTRA [facility] (ABNORMAL) Spectrae Chemistry (06/01/2022)Only the most recent of4 resultswithin the time period is included. athologist Signature PTH 147 (H) 16 - 80 APS SPECTRA pg/mL [facility] Specimen (Source) Anatomical Collection Method Collection Time Re ceived Time Location / / Volume Laterality 06/01/2022 06/02/2022 6:46 AM CDT Narrative APS SPECTRA [facility] - 06/02/2022 Unless otherwise specified, test(s) performed at: [facility], [address] [place], [place] [address] [place] [address] OPERATIONS AND MAINTENANCE TECHNICIAN: Dariel Doyle M.D., Ph.D For any questions, please call customer service at FREQUENCY:MONTHLY Resulting Agency Comment Specimen source: Plasma Sebastian Charles MD LAB BLOOD ORDERABLES Performing Organization Address City/[facility]/ZIP Code Phon e Number APS SPECTRA [facility] TRACE ELEMENTS (05/11/2022)Only the most recent of3 resultswithin the time period is included. athologist Signature Aluminum 6 0 - 10 APS SPECTRA mcg/L [facility] Comment: Verified by repeat analysis. Questionabl e result; result is significantly different from previous va lue. This test was developed and its performa nce characteristics determined by [facility]. It has not been cleared or approved by the FDA. The laboratory is regulated under CLIA a s qualified to perform high complexity testing. This test is used fo r clinical purposes. It should not be regarded as investigational or fo r research. Test performed at [facility], [address] [place] [address]. Telephone . [facility] or: Steve Younger MD. Specimen (Source) Anatomical Collection Method Collection Time Re ceived Time Location / / Volume Laterality 05/11/2022 05/14/2022 9:53 AM CDT Narrative APS SPECTRA [facility] - 05/14/2022 Unless otherwise specified, test(s) performed at: [facility], [address] [place], [place] [address] [place] [address] OPERATIONS AND MAINTENANCE TECHNICIAN: Dariel Doyle M.D., Ph.D For any questions, [...] Number APS SPECTRA [facility] PDF CHEMISTRY (04/22/2022) P athologist Signature Urea Nitrogen, 1,933.2 mg/24 [...] have been corrected fo r glucose interference. [facility] glucose correction factor f or creatinine is [...] [facility] PD ADEQUACY (04/22/2022)Only the most recent of2 resultswithin the time period is included. P athologist Signature Kt/V, Residual 2.51 APS SPECTRA [facility] Creat Clear, 206 L/wk APS SPECTRA Urine Nor Wkly [facility] Specimen (Source) Anatomical Collection Method Collection Time Re ceived Time Location / / Volume Laterality 04/22/2022 04/23/2022 4:41 AM CDT Narrative APS SPECTRA [facility] - 04/23/2022 Unless otherwise specified, test(s) performed at: [facility], [address] [place], [place] [address] [place] [address] OPERATIONS AND MAINTENANCE TECHNICIAN: Dariel Doyle M.D., Ph.D For any questions, please call customer service at FREQUENCY:MONTHLY Resulting Agency Comment Specimen source: Urine Sebastian Charles MD LAB BODY FLUIDS AND STOOLS O RDERABLES Performing Organization Address City/[facility]/ZIP [facility] Phon e Number APS SPECTRA [facility] PATIENT INFORMATION (04/22/2022)Only the most recent of3 resultswithin the time period is included. P athologist Signature Urea Volume 42.6 L APS SPECTRA Distribution [facility] (Zoraida) Specimen (Source) Anatomical Collection Method Collection Time Re ceived Time Location / / Volume Laterality 04/22/2022 04/23/2022 8:15 AM CDT Narrative APS SPECTRA [facility] - 04/23/2022 Unless otherwise specified, test(s) performed at: [facility], [address] [place] [address] [place] [address] OPERATIONS AND MAINTENANCE TECHNICIAN: Dariel Doyle M.D., Ph.D For any questions, please call customer service at FREQUENCY:MONTHLY Resulting Agency Comment Specimen source: PD Fluid Sebastian Charles MD LAB BLOOD ORDERABLES Performing Organization Address [facility] Phon e Number APS SPECTRA [facility] from Last 3 Months Insurance Payer Benefit Plan / Subscriber ID Effective Dates Phone Addre ss Type Group UHC MEDICARE AARP MEDICARE [id number] 2021-Presen [phone] [address] [address] COMPLETE t 0 [facility] ([id number]) [place] [address] Care Teams Industrial Technology Teacher Relationship Specialty Start Date End Date Harish Silver MD PCP - General 05/17/19 [address] [address]
--- OUTSIDE RECORDS SUMMARY | 2022-06-14 06:23 | XMS_ITS | Encounter Summary ---
:1940 Author Organization [facility] Address [address] [place] [address] Care Team Providers Name Role Phone Unavailable Primary Care Provider Unavailable Encounter Details Date Type Department Care Team Description 02/14/2019 Hospital Encounter Department of Marilin, Achalasi a; Laboratory Medicine Chicohankar, Cough Wi th Hemorrhage; and Pathology, M.B.B.S. Shortness Of Breath; [facility] in Dysphagi a; [facility] Reflux Disease Without Esophagitis; [place] Laparoscopic Myotomy For Ach alasia Status Post; [address] [facility] Chronic Kidney Disease Stage 4 Glomerular Filtration Rate 15-29 (HCC) [id number] Social History Tobacco Use Types Packs/Day Years [...] How often do you attend buddhist or christianity More than 4 time s [...] Nutrition Ankita Smyth M.D., Ph.D. [address] [place] [phone] Ace Morris, RDN, LD [address] [place] [phone] 06/20/2022 Comprehensive Visit Gastroenterology and [facility] Hepat[facility] Maurice Mendes M.D., Ph.D. [address] [place] [phone] 06/22/2022 Appointment Radiology Maurice Smyth M.D., Ph.D. [address] [place] [phone] 07/12/2022 Clinical Communication Admitting/Central Scheduling 08/31/2022 Appointment Gastroenterology and [facility] Hepatology Maurice Mendes M.D., Ph.D. [address] [place] [phone] 09/01/2022 Appointment Gastroenterology and [facility] Hep[facility] Maurice Mendes M.D., Ph.D. [address] [place] [phone] 09/05/2022 Appointment Gastroenterology and [facility] Hepatology Maurice Mendes M.D., Ph.D. [address] [place] [phone] documented as of this encounter Procedures Procedure [...] Results Microscopic Automated (02/14/2019 10:57 AM CDT) P athologist Signature Microscopy Normal 02/14/2019 12:15 PM CDT WBC 1-3 /hpf 02/14/2019 12:15 PM CDT Comment: ----REFERENCE VALUE---- 1-3 ??(Males) 1-10 (Females) Specimen Anatomical Collection Method Collection Time Receive d Time (Source) Location / / Volume Laterality Urine 02/14/2019 10:57 02/14/2019 AM CDT 10:57 AM CDT Darwin Giles LAB URINE ORDERABLES Performing Organization Address City/State/ZIP Code Phon e Number [facility] - [address] [place] [address] [facility] (ABNORMAL) Microalbumin, Random, Urine (02/14/2019 10:57 AM CDT) P athologist Signature Microalbumin 101.0 mg/L 02/14/2019 11:27 AM CDT Comment: ----ADDITIONAL INFORMATION---- This test has been modified from the man ufacturer's instructions. Its performance characteri stics were determined by [facility] in a manner co nsistent with CLIA [...] Address City/State/ZIP Code Phon e Number [facility] - [address] [place], [place] [address] [facility] (ABNORMAL) Urinalysis with Microscopic: Urine, Clean Catch (02/14/2019 10:57 AM CDT) [facility] gist Method Time Signature Source Midstream 02/14/2019 10:57 AM CDT Appearance Normal Normal 02/14/2019 11:27 AM CDT Osmolality, U 412 150 - 1150 02/14/2019 mOsm/kg 12:21 PM CDT pH, U 5.4 4.5 - 8.0 02/14/2019 12:21 PM CDT Comment: ----ADDITIONAL INFORMATION---- This test was developed and its performa nce characteristics determined by [facility] in a manner co nsistent with CLIA [...] Address City/State/ZIP Code Phon e Number [facility] - [address] [place] [address] [facility] documented in this encounter Visit Diagnoses Diagnosis Achalasia Cough With Hemorrhage Shortness Of Breath Dysphagia Gastroesophageal Reflux Disease Without Esophagitis Laparoscopic Myotomy For Achalasia Statu s Post Chronic Kidney Disease Stage 4 Glomerula r Filtration Rate 15-29 (HCC) documented in this encounter
--- OUTSIDE RECORDS SUMMARY | 2022-06-14 06:23 | XMS_ITS | Encounter Summary ---
:1940 Author Organization [facility] Address [address] [place] [address] Care Team Providers Name Role Phone Harish Silver MD Primary Care Provider Encounter Details Date Type Department Care Team Description 05/11/2022 Orders Only [facility] Sebastian Mohan MD [address] [place] [address] [place], [place] [phone] (Wo rk) Social History Tobacco Use [...] Associated Diagnosis Comme nts TRACE ELEMENTS Routine 05/11/2022 Results for t his procedure are in the resu lts section. HEMATOLOGY Routine 05/11/2022 Results for thi s procedure are in the resu lts section. documented in this encounter Results TRACE ELEMENTS (05/11/2022) athologist Signature Aluminum 6 0 - 10 APS SPECTRA mcg/L [facility] Comment: Verified by repeat analysis. Questionabl e result; result is significantly different from previous va lue. This test was developed and its performa nce characteristics determined by [facility]. It has not been cleared or approved by the FDA. The laboratory is regulated under CLIA a s qualified to perform high complexity testing. This test is used fo r clinical purposes. It should not be regarded as investigational or fo r research. Test performed at [facility], [address] [place] [address]. Telephone . [facility] Direct or: Steve Younger MD. Specimen (Source) Anatomical Collection Method Collection Time Re ceived Time Location / / Volume Laterality 05/11/2022 05/14/2022 9:53 AM CDT Narrative APS SPECTRA [facility] - 05/14/2022 Unless otherwise specified, test(s) performed at: [email or web address], [address] [place] [address], [place] [address] TECH ED TEACHER: Dariel Doyle M.D., Ph.D For any questions, please call customer service at FREQUENCY:OTHER Resulting Agency Comment Specimen source: Serum Sebastian Charles MD LAB BLOOD ORDERABLES Performing Organization Address City/[facility] Code Phon e Number APS SPECTRA [facility] (ABNORMAL) HEMATOLOGY (05/11/2022) Analysis Performed At Patho [...] 05/12/2022 Unless otherwise specified, test(s) performed at: [facility], [address] [place] [address], [place] [address] TECH ED TEACHER: Dariel Doyle M.D., Ph.D For any questions, please call customer service at FREQUENCY:OTHER Resulting Agency Comment Specimen source: Blood Sebastian Charles MD LAB BLOOD ORDERABLES Performing Organization Address City/[facility] Phon e Number APS SPECTRA [facility] documented in this encounter Visit Diagnoses Not on filedocumented in this encounter Care Teams Custom Clothier Relationship Specialty Start Date End Date Harish Silver MD PCP - General 05/17/[address] [address] documented as of this encounter
--- OUTSIDE RECORDS SUMMARY | 2022-06-14 06:23 | XMS_ITS | Encounter Summary ---
:1940 Author Organization [facility] Address [address] [place] [address] Care Team Providers Name Role Phone Harish Silver MD Primary Care Provider Encounter Details Date Type Department Care Team Description 05/04/2022 Treatment [facility] Sebastian Jimenez MD [address] [place] [place] [address] [place], [place] [phone] (Wo rk) Social History Tobacco Use Types [...] Name: David Castro : 1940 Chart #: [id number] Sex: M This patient was personally seen for a complete visit as part of routine monthly dialysis care. A review of the dialysis treatment, blood pressure, estimated dry weight, and recent lab values was made.These were discussed with the patient and staff as necessary. MODEL AND MOLD MAKER PLASTER: Sebastian Charles MD LOCATION: [phone] SCHEDULE: No Routine Schedule Subjective Tolerating dialysis well. 05/04/22: Georges was hospitalized at [facility] , had coffee ground emesis and acute on chronic anemia, had EGD showing esophageal ulceration with clip placed and emesis stopped and no further bleeding occurred. BP lower than his usual with anemia, iron was very low and he got first of two feraheme infusions yesterday at [facility] and will have another on [...] HE walked 5 miles with >10,000 steps [id number] already this morning. He has no orthopnea or SOB, wt is lower, dialysis is going very well, and he has his liquid diet figured out and is tolerating protein powder and liquicel. He has no concerns at all today and is very pleased since feeling much better after IV iron infusion at the [facility] that we had arranged. 12/22/21: Georges was unfortunately hospitalized twice since our last visit. He went home and was very weak after I saw him last month on 12/01, went to ER and was admitted at [facility] from 12/02-12/08, had empyemaand chest tube was [...] studies from hospital low, getting [facility]me [facility] ordered by me x2 doses this [...] on filedocumented in this encounter Care Teams Mercury Recoverer Relationship Specialty Start Date End Date Harish Silver MD PCP - General 05/17/19 [address] [place] [address] documented as of this encounter
--- OUTSIDE RECORDS SUMMARY | 2022-06-14 06:23 | XMS_ITS | Encounter Summary ---
:1940 Author Organization [facility] Address [address] [place] [address] Care Team Providers Name Role Phone Unavailable [...] How often do you attend hindu or zoroastrianism More than 4 time s [...] Support Nutrition Ankita Smyth M.D., Ph.D. [address] [place] [phone] Ace Morris, RDN, LD [address] [place] [phone] 06/20/2022 Comprehensive Visit Gastroenterology and [facility] Hepat[facility] Maurice Mendes M.D., Ph.D. [address] [place] [phone] 06/22/2022 Appointment Radiology Maurice Smyth M.D., Ph.D. [address] [place] [phone] 07/12/2022 Clinical Communication Admitting/Central Scheduling 08/31/2022 Appointment Gastroenterology and [facility] Hepatology Maurice Mendes M.D., Ph.D. [address] [place] [phone] 09/01/2022 Appointment Gastroenterology and [facility] Hepatology Maurice Mendes M.D., Ph.D. [address] [place] [phone] 09/05/2022 Appointment Gastroenterology and [facility] Hepatology Maurice Mendes M.D., Ph.D. [address] [place] [phone] documented as of this encounter Procedures Procedure Name Priority Date/Time Associated Diagnosis Comme nts US EXTREMITY VEINS Routine 07/06/2002 9:51 AM Res ults for this RESPIRATORY PRACTITIONER procedure are i n the results section. DX CHEST POST PICC Routine 07/04/2002 8:12 PM Res ults for this PLACEMENT 1 VIEW RESPIRATORY PRACTITIONER procedure a re in the results section. US EXTREMITY VEINS Routine 07/04/2002 9:06 AM Res ults for this RESPIRATORY PRACTITIONER procedure are i n the results section. US EXTREMITY VEINS Routine 06/30/2002 10:55 AM Re sults for this RESPIRATORY PRACTITIONER procedure are i n the results section. documented in this encounter Results US Extremity Veins (07/06/2002 9:51 AM RESPIRATORY PRACTITIONER) Anatomical Region Laterality Modality Vascular, Upper Extremity, Lower Extremity Ultrasound Specimen (Source) Anatomical Collection Method Collection Time Re ceived Time Location / / Volume Laterality 07/06/2002 9:51 AM RESPIRATORY PRACTITIONER Narrative 07/06/2002 12:16 PM RESPIRATORY PRACTITIONER 06-Jul-2002 09:51:00 ??Exam: R US Extremity Veins Limited Indications: RUE--F/U DVT, PLEASE DO SAT URDAY PER ??[id number] ORIGINAL REPORT - 06-Jul-2002 12:16:00 Doppler ultrasound [...] Electronically signed by: ?? Arvin Bland M.D. [phone] ([id number]) 06-Jul-20 02 12:16 Procedure Note Chava Bland M.D. - 11/24/2017Formatti ng of this note might be different from the original. 06-Jul-2002 09:51:00 Exam: R US Extremit y Veins Limited Indications: RUE--F/U DVT, PLEASE DO SAT URDAY PER [id number] ORIGINAL REPORT - 06-Jul-2002 12:16:00 Doppler ultrasound [...] .556 Electronically signed by: Arvin Bland M.D. [phone] ([id number]) 06-Jul-20 02 12:16 Edison Vazquez M.D. IMG US PROCEDURES DX Chest Post PICC Placement 1 View (07/04/2002 8:12 PM RESPIRATORY PRACTITIONER) Anatomical Region Laterality Modality Chest N/A Radiographic Imaging Specimen (Source) Anatomical Collection Method Collection Time Re ceived Time Location / / Volume Laterality 07/04/2002 8:12 PM RESPIRATORY PRACTITIONER Narrative 07/05/2002 10:44 AM RESPIRATORY PRACTITIONER 04-Jul-2002 20:12:00 ??Exam: Chest-PICC Indications: left picc placement-svc ORIGINAL REPORT - 04-Jul-2002 20:49:00 Left PICC line with tip at the junction of the left innominate vein and SVC. No pneumothorax. Electronically signed by: ?? Norris Peraza [phone] ([id number]) 04-Jul-20 02 20:49 I have reviewed [...] No pneumothorax. Electronically signed by: Norris Peraza [phone] ([id number]) 04-Jul-20 02 20:49 I have reviewed the films/images and agr ee with the above interpretation. Electronically signed by: Eric. Dai Boyce M.D. 05-Jul-2002 10:44 Edison Vazquez M.D. IMG DIAGNOSTIC IMAGING PROCE [facility] US Extremity Veins (07/04/2002 9:06 AM RESPIRATORY PRACTITIONER) Anatomical Region Laterality Modality Vascular, Upper Extremity, Lower Extremity Ultrasound Specimen (Source) Anatomical Collection Method Collection Time Re ceived Time Location / / Volume Laterality 07/04/2002 9:06 AM RESPIRATORY PRACTITIONER Narrative 07/04/2002 11:44 AM RESPIRATORY PRACTITIONER 04-Jul-2002 09:06:00 ??Exam: R US Extremity Veins Limited Indications: SWELLING/R/O THROMBOSIS^MB3 [id number] ORIGINAL REPORT - 04-Jul-2002 11:44:00 Ultrasound examination [...] Extremit y Veins Limited Indications: SWELLING/R/O THROMBOSIS^MB3 [id number] ORIGINAL REPORT - 04-Jul-2002 11:44:00 Ultrasound examination [...] PROCEDURES US Extremity Veins (06/30/2002 10:55 AM RESPIRATORY PRACTITIONER) Anatomical Region Laterality Modality Vascular, Upper Extremity, Lower Extremity Ultrasound Specimen (Source) Anatomical Collection Method Collection Time Re ceived Time Location / / Volume Laterality 06/30/2002 10:55 AM RESPIRATORY PRACTITIONER Narrative 07/01/2002 10:57 AM RESPIRATORY PRACTITIONER 30-Jun-2002 10:55:00 ??Exam: US Extremity Veins Complete Indications: SWELLING/PAIN ORIGINAL REPORT - 30-Jun-2002 15:57:00 Doppler ultrasound evaluation of [facility] lower extremity venous systems demonstrates patent and easily compressible common femoral, superficial femoral, and popliteal veins in both legs. ??No evidence for deep venous thrombosis. ?? Ultrasound electronic images only. ??NO FILMS Ind: [id number] ?? [email or web address] ?? Electronically signed by: ?? Marysol Mejia MD [phone] ([id number]) 2 15:57 I have reviewed the films/images and agr ee with the above interpretation. Electronically signed by: ?? Juan David [phone] ([id number]) 2 10:57 Procedure Note Provider, Historical [...] [email or web address] Electronically signed by: Marysol Mejia MD [phone] ([id number]) 2 15:57 I have reviewed the films/images and agr ee with the above interpretation. Electronically signed by: Juan David [phone] ([id number]) 2 10:57 Bassam BAKER US PROCEDURES documented in this encounter Visit Diagnoses Not on filedocumented in this encounter
--- OUTSIDE RECORDS SUMMARY | 2022-06-14 06:23 | XMS_ITS | Encounter Summary ---
:1940 Author Organization [facility] Address [address] [place] [address] Care Team Providers Name Role Phone Harish Silver MD Primary Care Provider Encounter Details Date Type Department Care Team Description 06/01/2022 Treatment [facility] Sebastian Jimenez MD [address] [place] [address] [place], [place] [phone] (Wo rk) Social History Tobacco Use Types Packs/Day Years Used Date Smoking Tobacco: Never Alcohol Use Standard Drinks/Week Comments No 0 (1 standard drink = 0.6 oz pure alcoho l) Sex Assigned at Date Recorded Not on file documented as of this encounter Miscellaneous Notes Dialysis Note - Sebastian Charles MD - 06/01/2022 12:04 PM CDT Date: Jun 01, 2022 Patient Name: David Castro : 1940 Chart #: [id number] Sex: M This patient was personally seen for a complete visit as part of routine monthly dialysis care. A review of the dialysis treatment, blood pressure, estimated dry weight, and recent lab values was made.These were discussed with the patient and staff as necessary. PUBLICITY PERSON: Sebastian Charles MD LOCATION: [phone] SCHEDULE: No Routine Schedule Subjective Tolerating dialysis well. 06/01/22: He was hospitalized overnight at [facility] 05/13-05/14 with bleeding esophageal ulcer. HadEGD. Got Venofer. Was put back on Carafate, now stopped as they were unaware that he had toxic aluminum level on this. He has lost weight. He has manometry study planned with GI coming up. He is still on liquid diet. He has considered tube feeding if continues to have wt loss and esophageal bleeding problems. Dialysis is going well, has not had any issues with PD. 05/04/22: Georges was hospitalized at [facility] , had coffee ground emesis and acute on chronic anemia, had EGD showing esophageal ulceration with clip placed and emesis stopped and no further bleeding occurred. BP lower than his usual with anemia, iron was very low and he got first of two feraheme infusions yesterday at [facility] and will have another on Monday. He [...] HE walked 5 miles with >10,000 steps [id number] already this morning. He has no orthopnea or SOB, wt is lower, dialysis is going very well, and he has his liquid diet figured out and is tolerating protein powder and liquicel. He has no concerns at all today and is very pleased since feeling much better after IV iron infusion at the [facility] that we had arranged. 12/22/21: Georges was unfortunately hospitalized twice since our last visit. He went home and was very weak after I saw him last month on 12/01, went to ER and was admitted at [place] from 12/02-12/08, had empyemaand chest tube was [...] by mouth three times a week. M-W-F Carafate (sucralfate) 100 mg/mL suspension Take 10 ml by mouth four times a day Dialyvite (b complex-vitamin c-folic acid) 100-1 mg tablet 1 tablet by mouth once a day. with dinner docusate sodium 100 mg tablet Take 1 tablet by mouth twice a day as needed. - for constipation gentamicin 0.1% cream Apply a small amount to skin once a day as directed metoprolol tartrate 25 mg tablet Take 1 by mouth twice a day torsemide 20 [...] Kt/V is adequate. Continue current prescription. Adequacy was borderline, now residual function higher again (unusually high on last check). He has no uremia symptoms. Will monitor adequacy for now and maintain same prescription. Peritoneal Dialysis Access Assessment Placed on: 07/[address] Kaur No further leaking from PD cath site Anemia Assessment HEMOGLOBIN (G/DL) IN BLOOD g/dL 10.6 (05/11/22) 8.4 (04/22/22) 13.4 (03/30/22) WBC (BLOOD) 1000/mcL 4.92 (04/22/22) 6.97 (03/30/22) 7.30 (03/02/22) IRON SATURATION % 29 (01/26/22) 7 (12/22/21) 12 (12/01/21) FERRITIN ng/mL 61 (03/02/22) 306 (01/26/22) 66 (12/01/21) Hemoglobin is at goal. Iron Saturation is below goal. Ferritin is below goal. Will adjust SIRISHA and intravenous iron. Recent GI bleeding again, will re-check Hgb and iron studies today. If needs iron, will give Feraheme at [facility] as this works best for him Nutritional and Metabolic Assessment ALBUMIN (G/DL) g/dL [...] protein per day currently. I thinkalbumin lower related to hospital stays, difficulties with esophagus and intake and will need to monitor this closely. Bone and Mineral Metabolism Assessment CALCIUM mg/dL [...] below goal. Intact PTH is at goal. Repeat labs today Cardiovascular Assessment Blood pressure reviewed and is acceptable. Continue same cardiovascular medications. Estimated dry weight is too high, will decrease. Lower EDW to wt that he is at today (down 6 lbs) Monitor BP, soft today. Re-check Hgb and iron studies. Transplant Status Patient declined to be evaluated. He was evaluated on past, on hold for years, now advanced age and he has elected to not pursue any further given risks associated with transplant and his GI issues as well. Resuscitation Status Additional Comments: Doing better after hospital stay Check labs today, may need iron again STOP carafate, I added allergy in his chart in [facility] system as well with aluminum toxicity as adverse reaction. His aluminum was very high on this. He will discus alternatives with GI. he is already on PPI. Continue current PD prescription, but lower dry weight Need to monitor nutrition closely. It is possible he may require feeding tube at some point with hisachalasia or another procedure and whether we can continue PD will need to be considered Sebastian Charles MD [ Signed And locked electronically On 06/01/2022 at 12:10:34 PM ] Transcribed: Sebastian Charles ( 06/01/2022 ) documented in this encounter Plan of Treatment Not on filedocumented as of this encounter Visit Diagnoses Not on filedocumented in this encounter Care Teams Promotions Specialist Relationship Specialty Start Date End Date Harish Silver MD PCP - General 05/17/19 [address] [place] [address] documented as of this encounter
--- OUTSIDE RECORDS SUMMARY | 2022-06-14 06:23 | XMS_ITS | Encounter Summary ---
:1940 Author Organization [facility] Address [address] [place] [address] Care Team Providers Name Role Phone Unavailable [...] How often do you attend [facility]aritan or christian More than 4 time s [...] [place] [facility] (including now)? Sex Assigned at Date Recorded Male 04/11/2022 12:05 PM CDT documented as of this encounter Plan of Treatment Upcoming Encounters Date Type Specialty Care Team Description 06/16/2022 Clinical Support Nutrition Ankita Smyth M.D., Ph.D. [address] [place] [phone] Ace Morris, RDN, LD [address] [place] [address] 06/20/2022 Comprehensive Visit Gastroenterology and [facility] Maurice Mendes M.D., Ph.D. [address] [place] [phone] 06/22/2022 Appointment Radiology Maurice Smyth M.D., Ph.D. [address] [place] [phone] 07/12/2022 Clinical Communication Admitting/Central Scheduling 08/31/2022 Appointment Gastroenterology and [facility] Maurice Mendes M.D., Ph.D. [address] [place] [phone] 09/01/2022 Appointment Gastroenterology and [facility] Maurice Mendes M.D., Ph.D. [address] [place] [phone] 09/05/2022 Appointment Gastroenterology and [facility] Maurice Mendes M.D., Ph.D. [address] [place] [phone] documented as of this encounter Procedures Procedure Name Priority Date/Time Associated Diagnosis Comme nts HXGENERAL PATHOLOGY Routine 06/25/2003 3:49 PM Re sults for this REPORT VAT OVERHAULER procedure are i n the results section. EEG ROUTINE - AWAKE Routine 06/25/2003 8:13 AM Re sults for this AND SLEEP VAT OVERHAULER procedure are i n the results section. MR BRAIN WITHOUT Routine 06/25/2003 7:31 AM Resul ts for this AND WITH IV VAT OVERHAULER procedure are i n CONTRAST the results section. documented in this encounter Results Hx general Pathology Report (06/25/2003 3:49 PM VAT OVERHAULER) Specimen Anatomical Collection Method Collection Time Receive d Time (Source) Location / / Volume Laterality 06/25/2003 3:49 PM 3 3:49 VAT OVERHAULER PM VAT OVERHAULER Narrative [facility] - 06/25/2003 3:49 PM VAT OVERHAULER ?06/25/2003 General Biopsy ? ([id number]) ? Requested By: ??Ta Jasmine ??[id number] ? TISSUE DESCRIPTION: [id number] A1 ?? A. ??Bulb, Duodenum biopsy: ??(1 piece 0.3 cm. in diameter) ?DIAGNOSIS: ?? Small bowel, duodenal bulb, nodule, end oscopic biopsy: ??Heterotopic fundic-type mucosa. ? 06/26/03 ??Rahel Woo M.D. [phone] ? Procedure Note 11/11/2017 06/25/2003 General Biopsy ([id number]) Requested By: Dieudonne Higgins M.D. [id number] TISSUE DESCRIPTION: [id number] A1 A. Bulb, Duodenum biopsy: (1 piece 0.3 cm. in diameter) DIAGNOSIS: Small bowel, duodenal bulb, nodule, end oscopic biopsy: Heterotopic fundic-type mucosa. 06/26/03 Rahel Woo M.D. [phone] Historical Provider LAB PATHOLOGY/CYTOLOGY ORDER SHON Performing Organization Address City/State/ZIP Code Phon e Number [facility] - [address] [place], [place] [address] [facility] EEG routine - awake and sleep (06/25/2003 8:13 AM VAT OVERHAULER) Specimen (Source) Anatomical Collection Method Collection Time Re ceived Time Location / / Volume Laterality 06/25/2003 8:13 AM VAT OVERHAULER Narrative [facility] - 06/25/2003 8:13 AM VAT OVERHAULER ?? 25 Jun 2003 ? Electroencephalography ?Final Report ? Referring Physician: ??Gen lenka Schaffer ??[id number] ?Date: ??25 Jun 2003 ?? EEG Reed Or Wind Instrument Repairer: ? Micheal Lewis [id number] ?? Clinical Problem: ? Seizures ?? CLINICAL [...] right parasaggital regions (awake and ?? asleep); ??monitor technician. ?? REPORT: ??The recording during wakef ulness [...] ?? breathing was observed during sleep. ??The monitor technician was unremarkable. Micheal Lewis (Signature date Jun 2003 12:12) Procedure Note Jos Lewis M.D. - 12/04/2017Formatting o f this note might be different from the original. 25 Jun 2003 Electroencephalography Fin al Report Referring Physician: Tyra Schaffer [id number] Date: 25 Jun 2003 EEG Reed Or Wind Instrument Repairer: Micheal Lewis [id number] Clinical Problem: Seizures CLINICAL INTERPRETATION: The EEG [...] and right parasaggital regions (awake and asleep); monitor technician. REPORT: The recording during wakefulnes s shows [...] breathing was observed during sleep. Th e monitor technician was unremarkable. Micheal Lewis (Signature date Jun 2003 12:12) Tyra Schaffer M.D. NEUROLOGY ORDERABLES Performing Organization Address City/State/ZIP Code Phon e Number [facility] [address] [place] [address], U SA MR Brain without and with IV Contrast (06/25/2003 7:31 AM VAT OVERHAULER) Anatomical Region Laterality Modality Head, Brain N/A Magnetic Resonance Specimen (Source) Anatomical Collection Method Collection Time Re ceived Time Location / / Volume Laterality 06/25/2003 7:31 AM VAT OVERHAULER Narrative 06/25/2003 8:38 AM VAT OVERHAULER 25-Jun-2003 07:31:00 ??Exam: MRI Hd wo&w Indications: [...] 117.200 ?? Dia.450 ?? Franci Starks MD [phone] ([id number]) ?? I have reviewed the films/images and agr ee with the above interpretation. Electronically signed by: ?? Lizzette Varela M.D. [id number] 25-Jun-2003 08:36 Procedure Note Keila Varela M.D. [...] negative. Ind: 117.200 Dia.450 Franci Starks MD [phone] ([id number]) I have reviewed the films/images and agr ee with the above interpretation. Electronically signed by: Lizzette Varela M.D. [id number] 25-Jun-2003 08:36 Fede BAKER MRI PROCEDURES documented in this encounter Visit Diagnoses Not on filedocumented in this encounter
--- OUTSIDE RECORDS SUMMARY | 2022-06-14 06:23 | XMS_ITS | Encounter Summary ---
:1940 Author Organization [facility] Address [address] [place] [address] Care Team Providers Name Role Phone Unavailable Primary Care Provider Unavailable Reason for Visit Reason Onset Date Comments Esophageal 12/14/2018 pre orders Encounter Details Date Type Department Care Team Description 12/14/2018 Clinical Division of Devaughn Werner (pre Communication Gastroenterology in [place], [facility] [place], [place] Ta., Ph.D. [address] [place] [phone] Social History Tobacco Use Types Packs/Day [...] How often do you attend spiritism or zoroastrianism More than 4 time s [...] or slept in a halfway (including now)? Sex Assigned at Date Recorded Male 04/11/2022 12:05 PM CDT documented as of this encounter Plan of Treatment Upcoming Encounters Date Type Specialty Care Team Description 06/16/2022 Clinical Support Nutrition Ankita Smyth M.D., Ph.D. [address] [place] [phone] Ace Morris, ALONAN, LD [address] [place] [phone] 06/20/2022 Comprehensive Visit Gastroenterology and [facility] Maurice Mendes M.D., Ph.D. [address] [place] [phone] 06/22/2022 Appointment Radiology Maurice Smyth M.D., Ph.D. [address] [place] [phone] 07/12/2022 Clinical Communication Admitting/Central Scheduling 08/31/2022 Appointment Gastroenterology and [facility] Hep[facility] Maurice Mendes M.D., Ph.D. [address] [place] [phone] 09/01/2022 Appointment Gastroenterology and [facility] Maurice Mendes M.D., Ph.D. [address] [place] [phone] 09/05/2022 Appointment Gastroenterology and [facility] Maurice Mendes M.D., Ph.D. [address] [place] [phone] documented as of this encounter Visit Diagnoses Not on filedocumented in this encounter
--- OUTSIDE RECORDS SUMMARY | 2022-06-14 06:23 | XMS_ITS | Encounter Summary ---
:1940 Author Organization [facility] Address [address] [place] [address] Care Team Providers Name Role Phone Unavailable Primary Care Provider Unavailable Reason for Referral Outpatient (Routine) - Closed Specialty Diagnoses / Referred By Referred To Cont act Procedures [facility] Laura GranadosB.S. [address] [place] [phone] Referral ID Status Reason Start Date Expiration Date Visits Requ ested Visits Authorized [id number] Closed 02/14/2019 02/14/2020 1 1 utpatient (Routine) - Closed Specialty Diagnoses / Procedures Referred By Contact Refer red To Contact Pulmonary Medicine Diagnoses Achalasia Cough With Hemorrhage Shortness Of Breath Dysphagia Gastroesophageal Reflux Disease Without Esophagitis Laparoscopic Myotomy For Achalasia Status Post Chronic Kidney Disease Stage 4 Glomerular Filtration Rate 15-29 ([facility] Laura GranadosB[facility] [address] [place] [phone] Referral ID Status Reason Start Date Expiration Date Visits V isits Requested Authorized [id number] Closed Specialty 02/14/2019 02/14/2020 1 1 Services Required utpatient (Routine) - Closed Specialty Diagnoses / Procedures Referred By Contact Refer red To Contact Nephrology and Diagnoses Achalasia Cough With Hemorrhage Shortness Of Breath Dysphagia Gastroesophageal Reflux Disease Without Esophagitis Laparoscopic Myotomy For Achalasia Status Post Chronic Kidney Disease Stage 4 Glomerular Filtration Rate 15-29 ([facility]) [facility] Chan Granados [address] [place] [address] Referral ID Status Reason Start Date Expiration Date Visits Requ ested Visits Authorized [id number] Closed 02/14/2019 02/14/2020 1 1 utpatient (Routine) - Closed Specialty Diagnoses / Procedures Referred By Contact Refer red To Contact Diagnoses Guillermo Ayers M.D., [facility] Procedures EGD (EsophagoGastroDuodenoscopy) Restricted Ph.D. [address] [place] [address] Referral ID Status Reason Start Date Expiration Date Visits Requ ested Visits Authorized [id number] Closed 12/17/2018 12/17/2019 1 1 Outpatient (Routine) - Closed Specialty Diagnoses / Procedures Referred By Contact Refer red To Contact Diagnoses Guillermo Ayers M.D., [facility] Procedures ECG 12 Lead IA EKG 12 LEAD TRACE ONLY IA EKG I&R ONLY Ph.D. [address] [place] [phone] Referral ID Status Reason Start Date Expiration Date Visits Requ ested Visits Authorized [id number] Closed 12/17/2018 12/17/2019 1 1 Outpatient (Routine) - Closed Specialty Diagnoses / Procedures Referred By Contact Refer red To Contact Thoracic Surgery Diagnoses MattiealasiGuillermo Robreto M.D., Ph.D. [address] [place] [address] Referral ID Status Reason Start Date Expiration Date Visits Requ ested Visits Authorized [id number] Closed 12/17/2018 12/17/2019 1 1 Outpatient (Routine) - Closed Specialty Diagnoses / Procedures Referred By Contact Refer red To Contact Diagnoses Achalasia Guillermo Werner M.D., [place] Procedures FL Esophagram IA XR ESOPHAGUS HC XR ESOPHAGUS IA XR ESOPHAGUS Ph.D. [address] [place] [address] Referral ID Status Reason Start Date Expiration Date Visits Requ ested Visits Authorized [id number] Closed 12/17/2018 12/17/2019 1 1 Reason for Visit Reason Comments Dysphasia Esoph Appointment Request (Routine) - Closed Specialty Diagnoses / Referred By Contact Referred To Procedures Contact Gastroenterology and [facility] Hepatology Trin[place] [address] [place] [address] Referral ID Status Reason Start Date Expiration Date Visits Requ ested Visits Authorized [id number] Closed 12/14/2018 12/14/2019 1 Encounter Details Date Type Department Care Team Description 02/14/2019 Comprehensive Visit Division of [facility] Achalasi a (Primary Dx); Gastroenterology in y, Cough Wi th Hemorrhage; [place], [place] Subhankar, Shortness Of Breath; [address] [place] [address] M.B.B.S. Dysphagia; [place], [place] Gastroesophage al Reflux Disease Without Esophagitis; [phone] Laparoscopic Myotomy For Ach alasia Status Post; [phone] Chronic Kidney Disease Stage 4 Glomerular Filtration Rate 15-29 ([facility]) Social History Tobacco Use Types Packs/Day Years [...] How often do you attend samaritan or worship More than 4 time s [...] neck surgery? ??Yes, [facility] here at [facility] Do you have a continuous infusion device [...] of any scanned into our records done [id number] revealed no esophagitis. All these endoscopies noted [...] Disease Stage 4 Glomerular Filtration Rate 15-29 ([facility]) Nephrology and Hypertension- Chronic kidney disease consult [...] failure as well. CT CT Job ID: [id number]/[id number] documented in this encounter Plan of Treatment Upcoming Encounters Date Type Specialty Care Team Description 06/16/2022 Clinical Support Nutrition Ankita Smyth M.D., Ph.D. [address] [place] [phone] Ace Morris, RDN, [place] [address] [place] [phone] 06/20/2022 Comprehensive Visit Gastroenterology and [facility] Maurice Mendes M.D., Ph.D. [address] [place] [phone] 06/22/2022 Appointment Radiology Maurice Smyth M.D., Ph.D. [address] [place] [phone] 07/12/2022 Clinical Communication Admitting/Central Scheduling 08/31/2022 Appointment Gastroenterology and [facility] Maurice Mendes M.D., Ph.D. [address] [place] [phone] 09/01/2022 Appointment Gastroenterology and [facility] Hepatology Maurice Mendes M.D., Ph.D. [address] [place] [phone] 09/05/2022 Appointment Gastroenterology and [facility] Hepat[facility] Maurice Mendes M.D., Ph.D. [address] [place] [phone] Scheduled Referrals Name Type Priority Associated Order [...] athologist Signature DLCO SINGLE 17.42 ml/(min*mm 02/20/2019 [facility] SENTRY BREATH POST Hg) 1:52 PM CDT SUITE VA SINGLE 4.05 L 02/20/2019 [facility] S[facility] BREATH POST 1:52 PM CDT SUITE [id number] 98.00 % 02/20/2019 [facility] SENTRY 1:52 PM CDT SUITE [id number] 96.00 % 02/20/2019 [facility] SENTRY 1:52 PM CDT SUITE PulseRest 73.00 1/min 02/20/2019 [facility] SENTRY 1:52 PM CDT SUITE PulseExer 129.00 1/min 02/20/2019 [facility] SENTRY 1:52 PM CDT SUITE EXER TIME 3.00 min 02/20/2019 [facility] SENTRY 1:52 PM CDT SUITE STEP HEIGHT 9.00 Inch 02/20/2019 [facility] SENTRY PRE 1:52 PM CDT SUITE VC MAX POST 2.46 L 02/20/2019 [facility] SENTRY 1:52 PM CDT SUITE PostFEV1 1.76 L 02/20/2019 [facility] SENTRY 1:52 PM CDT SUITE FEV1/FVC POST 71.87 % 02/20/2019 [facility] SENTRY 1:52 PM CDT SUITE PostFVC 2.46 L 02/20/2019 [facility] SENTRY 1:52 PM CDT SUITE FET POST 6.10 sec 02/20/2019 [facility] SENTRY 1:52 PM CDT SUITE PEF POST 8.10 L/s 02/20/2019 [facility] SENTRY 1:52 PM CDT SUITE FEF 25-75 % 1.10 L/s 02/20/2019 [facility] POST 1:52 PM CDT SUITE VC MAX PRE 2.50 L 02/20/2019 [facility] SENTRY 1:52 PM CDT SUITE FEV1 1.82 L 02/20/2019 [facility] SENTRY 1:52 PM CDT SUITE FEV1/FVC 73.95 % 02/20/2019 [facility] SENTRY 1:52 PM CDT SUITE MVV 55.36 L/min 02/20/2019 [facility] SENTRY 1:52 PM CDT SUITE FVC 2.47 L 02/20/2019 [facility] SENTRY 1:52 PM CDT SUITE FET PRE 6.00 sec 02/20/2019 [facility] SENTRY 1:52 PM CDT SUITE PEF PRE 6.09 L/s 02/20/2019 [facility] SENTRY 1:52 PM CDT SUITE OPJ66-13% 1.30 L/s 02/20/2019 [facility] SENTRY 1:52 PM CDT SUITE FRCPLETH 2.44 L 02/20/2019 [facility] PROVBASE 1:52 PM CDT SUITE RV 1.91 L 02/20/2019 [facility] SENTRY 1:52 PM CDT SUITE TLC 4.40 L 02/20/2019 [facility] SENTRY 1:52 PM CDT SUITE RV % TLC PRE 43.50 % 02/20/2019 [facility] SENTRY 1:52 PM CDT SUITE VC PRE 2.49 L 02/20/2019 [facility] 1:52 PM CDT SUITE SUBSTANCE POST NaN 02/20/2019 [facility] 1:52 PM CDT SUITE DOSE POST NaN 02/20/2019 [facility] 1:52 PM CDT SUITE % PRED VC MAX 67.22 % 02/20/2019 [facility] 1:52 PM CDT SUITE FEV1% 65.60 % 02/20/2019 [facility] 1:52 PM CDT SUITE % PRED 98.14 % 02/20/2019 [facility] FEV1/FVC 1:52 PM CDT SUITE FVC% 66.39 % 02/20/2019 [facility] 1:52 PM CDT SUITE % PRED PEF 80.62 % 02/20/2019 [facility] SENT 1:52 PM CDT SUITE % PRED FEF 63.82 % 02/20/2019 [facility] 25-75% 1:52 PM CDT SUITE PRED VC MAX 3.72 L 02/20/2019 [facility] 1:52 PM CDT SUITE PRED FEV 1 2.78 L 02/20/2019 [facility] 1:52 PM CDT SUITE PRED FEV1/FVC 75.35 % 02/20/2019 [facility] 1:52 PM CDT SUITE PRED FVC 3.72 L 02/20/2019 [facility] 1:52 PM CDT SUITE PRED PEF 7.55 L/s 02/20/2019 [facility] 1:52 PM CDT SUITE PRED FEF 2.03 L/s 02/20/2019 [facility] SENTRY 25-75% 1:52 PM CDT SUITE Specimen [...] MUSE QTC Interval 547 ms MUSE R [place] -41 degrees MUSE T Wave [place] 93 degrees MUSE Specimen Anatomical Collection Method [...] performance characteri stics were determined by [facility] in a manner co nsistent with CLIA [...] Organization Address City/State/ZIP Code Phon e Number [facility] - [address] [place], [place] [address] [facility] (ABNORMAL) Urinalysis with Microscopic: [...] and its performa nce characteristics determined by [facility] in a manner co nsistent with CLIA [...] RicoS. LAB URINE ORDERABLES Performing Organization Address [facility] Phon e Number [facility] - [address] (ABNORMAL) Prothrombin Time (PT/INR) (02/14/2019 10:20 AM CDT) [facility] gist Method Time Signature Prothrombin 15.1 [...] SanchezBBaileyS. LAB BLOOD ADD-ON Performing Organization Address [facility] Phon e Number [facility] - [address] [place] [phone] [facility] (ABNORMAL) Alkaline Phosphatase, Total and Isoenzymes (02/14/2019 10:20 AM CDT) [facility] Method Time Signature Alkaline 302 (H) [...] Venous) AM CDT 10:41 AM CDT Narrative [facility] - 02/15/2019 12:05 PM CDT Specimen Information: Specimen ID: [id number] Specimen Type: Blood Specimen Collection Start Date: 02/15/20 10:20 AM Specimen Received Date: 02/14/2019 10:41 AM Specimen ID: [id number] Specimen Type: Blood Specimen Collection Start Date: 02/15/20 10:20 AM Specimen Received Date: 02/14/2019 11:22 AM Darwin Giles LAB BLOOD NON ADD-ON Performing Organization Address City/State/ZIP Code Phon e Number [facility] - [address] [place], [place] [address] [facility] (ABNORMAL) PTH (Parathyroid Hormone) (02/14/2019 [...] Organization Address City/State/ZIP Code Phon e Number [facility] - [address] [place] [address] [facility] 25-Hydroxyvitamin D2 and D3 (02/14/2019 [...] and its performa nce characteristics determined by [facility] in a manner consistent with CLIA requirements. This test has not been cleared or approved by the [place] d and Drug Administration. Specimen Anatomical Collection Method Collection Time Receive d Time (Source) Location / / Volume Laterality Blood (Blood, 02/14/2019 10:20 02/14/2019 1:36 Venous) AM CDT PM CDT Darwin Giles LAB BLOOD ADD-ON Performing Organization Address City/State/ZIP Code Phon e Number [facility] [address] [facility] [place], [place] [address] [facility] Uric Acid [...] Organization Address City/State/ZIP Code Phon e Number [facility] - [address] [place], [place] [address] [facility] (ABNORMAL) CBC with Differential (02/14/2019 10:20 AM CDT) [facility] Method Time Signature Hemoglobin 13.7 13.2 [...] Organization Address City/State/ZIP Code Phon e Number [facility] - [address] [place], [place] [address] [facility] (ABNORMAL) Renal Function Panel (02/14/2019 [...] >=60 02/14/2019 Black/ mL/min/BSA 12:03 PM CDT Bolivian Comment: ----ADDITIONAL INFORMATION---- Estimated GFR calculated using [...] Organization Address City/State/ZIP Code Phon e Number [facility] - [address] [place], [place] [address] [facility] DX Chest AP or PA [...]
--- OUTSIDE RECORDS SUMMARY | 2022-06-14 06:24 | XMS_ITS | Encounter Summary ---
:1940 Author Organization [facility] Address [address] [place] [address] Care Team Providers Name Role Phone Harish Silver MD Primary Care Provider Encounter Details Date Type Department Care Team Description 10/06/2021 Orders Only [facility] Sebastian Mohan MD [address] [place] [phone] [place], [place] [phone] (Wo rk) Social History Tobacco Use [...] Volume Laterality 10/06/2021 10/07/2021 8:46 PM MANAGER EQUITY Narrative [facility] - 10/08/2021 Unless otherwise specified, test(s) performed at: [facility], [address] [place] [id number] SEATING AND MOBILITY TECHNOLOGIST: Steve Younger M.D. For any questions, please call customer service at FREQUENCY:OTHER Resulting Agency Comment Specimen source: Serum Sebastian Charles MD LAB BLOOD ORDERABLES Performing Organization Address City/State/ZIP Code Phon e Number [facility] documented in this encounter Visit Diagnoses Not on filedocumented in this encounter Care Teams Toe Closing Machine Tender Relationship Specialty Start Date End Date Harish Silver MD PCP - General 05/17/19 [address] [place] [address] documented as of this encounter
--- OUTSIDE RECORDS SUMMARY | 2022-06-14 06:24 | XMS_ITS | Encounter Summary ---
:1940 Author Organization [facility] Address [address] [place] [address] Care Team Providers Name Role Phone Harish Silver MD Primary Care Provider Encounter Details Date Type Department Care Team Description 09/01/2021 Telephone [facility] Yessica Patten, [place] [phone] [place] [address] [address] [place] [address] (Wo rk) Social History Tobacco [...] AM CST VO from Dr. Charles- Start [facility] admission process. He will be starting PD at [facility] last week of August. Already has PD catheter. Completed [facility] Admission in the portal. documented in this encounter Plan of Treatment Not on filedocumented as of this encounter Visit Diagnoses Not on filedocumented in this encounter Care Teams Central Supply Assistant Relationship Specialty Start Date End Date Harish Silver MD PCP - General 05/17/19 [address] [place] [address] documented as of this encounter
--- OUTSIDE RECORDS SUMMARY | 2022-06-14 06:24 | XMS_ITS | Encounter Summary ---
:1940 Author Organization [facility] Address [address] [place] [address] Care Team Providers Name Role Phone Harish Silver MD Primary Care Provider Encounter Details Date Type Department Care Team Description 01/26/2022 Treatment [facility] Sebastian Jimenez MD [address] [place], [place] [phone] (Wo rk) Social History Tobacco Use Types [...] Name: David Castro : 1940 Chart #: [id number] Sex: M This patient was personally seen for a complete visit as part of routine monthly dialysis care. A review of the dialysis treatment, blood pressure, estimated dry weight, and recent lab values was made.These were discussed with the patient and staff as necessary. RETURN TO VENDOR: Sebastian Charles MD LOCATION: [phone] SCHEDULE: No Routine Schedule Subjective 01/26/22: Georges feels fantastic, back like himself again. HE walked 5 miles with >10,000 steps [id number] already this morning. He has no orthopnea or SOB, wt is lower, dialysis is going very well, and he has his liquid diet figured out and is tolerating protein powder and liquicel. He has no concerns at all today and is very pleased since feeling much better after IV iron infusion at the [facility] that we had arranged. 12/22/21: Georges was unfortunately hospitalized twice since our last visit. He went home and was very weak after I saw him last month on 12/01, went to ER and was admitted at [place] from 12/02-12/08, had empyemaand chest tube was [...] had two infusions of Feraheme 510mg at [facility], will repeat Hgb and iron studies [...] filedocumented in this encounter Care Teams Wood Turning Lathe Operator Relationship Specialty Start Date End Date Harish Silver MD PCP - General 05/17/19 [address] [place] [address] documented as of this encounter
--- OUTSIDE RECORDS SUMMARY | 2022-06-14 06:24 | XMS_ITS | Encounter Summary ---
:1940 Author Organization [facility] Address [address] [place] [address] Care Team Providers Name Role Phone Harish Silver MD Primary Care Provider Encounter Details Date Type Department Care Team Description 03/02/2022 Treatment [facility] Sebastian Jimenez MD [address] [place] [place] [address] [place], [place] [phone] (Wo rk) Social History Tobacco Use Types [...] Name: David Castro : 1940 Chart #: [id number] Sex: M This patient was personally seen for a complete visit as part of routine monthly dialysis care. A review of the dialysis treatment, blood pressure, estimated dry weight, and recent lab values was made.These were discussed with the patient and staff as necessary. SALES OPERATIONS ANALYST: Sebastian Charles MD LOCATION: [phone] SCHEDULE: No Routine Schedule Subjective 03/02/22: Georges [...] HE walked 5 miles with >10,000 steps [id number] already this morning. He has no orthopnea or SOB, wt is lower, dialysis is going very well, and he has his liquid diet figured out and is tolerating protein powder and liquicel. He has no concerns at all today and is very pleased since feeling much better after IV iron infusion at the [facility] that we had arranged. 12/22/21: Georges was unfortunately hospitalized twice since our last visit. He went home and was very weak after I saw him last month on 12/01, went to ER and was admitted at [place] from 12/02-12/08, had empyemaand chest tube was [...] on filedocumented in this encounter Care Teams Manager Scientific Relationship Specialty Start Date End Date Harish Silver MD PCP - General 05/17/19 [address] [place] [address] documented as of this encounter
--- OUTSIDE RECORDS SUMMARY | 2022-06-14 06:24 | XMS_ITS | Encounter Summary ---
:1940 Author Organization [facility] Address [address] [place] [address] Care Team Providers Name Role Phone Harish Silver MD Primary Care Provider Encounter Details Date Type Department Care Team Description 12/22/2021 Orders Only [facility] f Sebastian Mohan MD [phone] [place] [address] [place], [place] [phone] (Wo rk) Social History Tobacco Use [...] this encounter Results (ABNORMAL) Spectrae Chemistry (12/22/2021) [facility] gist Method Time Signature BUN 34 [...] 12/24/2021 Unless otherwise specified, test(s) performed at: [facility], [address] [place] [address] FLUE TILE PRESS OPERATOR: Steve Younger M.D. For any questions, [...] 12/23/2021 Unless otherwise specified, test(s) performed at: [facility], [address] [place] [address] FLUE TILE PRESS OPERATOR: Steve Younger M.D. For any questions, please call customer service at FREQUENCY:MONTHLY Resulting Agency Comment Specimen source: Blood Sebastian Charles MD LAB BLOOD ORDERABLES Performing Organization Address City/State/ZIP Code Phon e Number APS SPECTRA [facility] documented in this encounter Visit Diagnoses Not on filedocumented in this encounter Care Teams Roller Engraver Relationship Specialty Start Date End Date Harish Silver MD PCP - General 05/17/[address] [place] [address] documented as of this encounter
--- OUTSIDE RECORDS SUMMARY | 2022-06-14 06:24 | XMS_ITS | Encounter Summary ---
:1940 Author Organization [facility] Address [address] [place] [address] Care Team Providers Name Role Phone Harish Silver MD Primary Care Provider Encounter Details Date Type Department Care Team Description 01/26/2022 Orders Only [facility] f Sebastian Mohan MD [phone] [place] [address] [place], [place] [phone] (Wo rk) Social History Tobacco Use [...] in this encounter Results (ABNORMAL) HEMATOLOGY (01/26/2022) [facility] gist Method Time Signature WBC 8.03 4.80 [...] 01/28/2022 Unless otherwise specified, test(s) performed at: [facility], [address] [place], [place] [id number] INCUBATOR MACHINE OPERATOR: Steve Younger M.D. For any questions, please call customer service at FREQUENCY:MONTHLY Resulting Agency Comment Specimen source: Blood Sebastian Charles MD LAB BLOOD ORDERABLES Performing Organization Address City/State/ZIP Code Phon e Number APS SPECTRA [facility] (ABNORMAL) Spectrae Chemistry (01/26/2022) [facility] gist Method Time Signature BUN 51 (H) [...] 01/28/2022 Unless otherwise specified, test(s) performed at: [facility], [address] [place] [address] INCUBATOR MACHINE OPERATOR: Steve Younger M.D. For any questions, please call customer service at FREQUENCY:MONTHLY Resulting Agency Comment Specimen source: Serum Sebastian Charles MD LAB BLOOD ORDERABLES Performing Organization Address City/State/ZIP Code Phon e Number [facility]PS SPECTRA [facility] documented in this encounter Visit Diagnoses Not on filedocumented in this encounter Care Teams Financial Aid Relationship Specialty Start Date End Date Harish Silver MD PCP - General 05/17/19 [place] [address] documented as of this encounter
--- OUTSIDE RECORDS SUMMARY | 2022-06-14 06:24 | XMS_ITS | Encounter Summary ---
:1940 Author Organization [facility] Address [address] [place] [address] Care Team Providers Name Role Phone Harish Silver MD Primary Care Provider Encounter Details Date Type Department Care Team Description 03/30/2022 Treatment [facility] Sebastian Jimenez MD [address] [place] [address] [place], [place] [phone] (Wo rk) Social History Tobacco Use Types [...] Name: David Castro : 1940 Chart #: [id number] Sex: M This patient was personally seen for a complete visit as part of routine monthly dialysis care. A review of the dialysis treatment, blood pressure, estimated dry weight, and recent lab values was made.These were discussed with the patient and staff as necessary. AIRCONDITIONING DRAFTING OFFICER: Sebastian Charles MD LOCATION: [phone] SCHEDULE: No Routine Schedule Subjective Tolerating dialysis [...] HE walked 5 miles with >10,000 steps [id number] already this morning. He has no orthopnea or SOB, wt is lower, dialysis is going very well, and he has his liquid diet figured out and is tolerating protein powder and liquicel. He has no concerns at all today and is very pleased since feeling much better after IV iron infusion at the [facility] that we had arranged. 12/22/21: Georges was unfortunately hospitalized twice since our last visit. He went home and was very weak after I saw him last month on 12/01, went to ER and was admitted at [place] from 12/02-12/08, had empyemaand chest tube was [...] on filedocumented in this encounter Care Teams Loan Manager Relationship Specialty Start Date End Date Harish Silver MD PCP - General 05/17/19 [address] [place] [address] documented as of this encounter
--- OUTSIDE RECORDS SUMMARY | 2022-06-14 06:24 | XMS_ITS | Encounter Summary ---
:1940 Author Organization [facility] Address [address] [place] [address] Care Team Providers Name Role Phone Harish Silver MD Primary Care Provider Encounter Details Date Type Department Care Team Description 09/22/2021 Orders Only [facility] O f Sebastian Mohan MD [phone] [place] [address] [place], [place] [phone] (Wo rk) Social History Tobacco Use [...] / Volume Laterality 09/22/2021 09/23/2021 1:41 PM MOLDER MACHINE TENDER Narrative [facility]PS [facility] - 09/24/2021 Unless otherwise specified, test(s) performed at: [facility], [address] [place] [address] SPEECH AND LANGUAGE ASSISTANT: Steve Younger M.D. For any questions, please call customer service at FREQUENCY:MONTHLY Resulting Agency Comment Specimen source: Plasma Sebastian Charles MD LAB BLOOD ORDERABLES Performing Organization Address City/State/[facility] Phon e Number APS SPECTRA [facility] IMMUNO CHEMISTRY (09/22/2021) P athologist Signature Hep B Surface Negative Negative APS SPECTRA Ag [facility] Specimen (Source) Anatomical Collection Method Collection Time Re ceived Time Location / / Volume Laterality 09/22/2021 09/23/2021 3:00 PM MOLDER MACHINE TENDER Narrative [facility]PS [facility] - 09/23/2021 Unless otherwise specified, test(s) performed at: [facility], [address] [place] [address] SPEECH AND LANGUAGE ASSISTANT: Steve Younger M.D. For any questions, please call customer service at FREQUENCY:MONTHLY Resulting Agency Comment Specimen source: Serum Sebastian Charles MD LAB BLOOD ORDERABLES Performing Organization Address City/State/[facility] Code Phon e Number APS SPECTRA [...] / Volume Laterality 09/22/2021 09/23/2021 3:00 PM MOLDER MACHINE TENDER Narrative [facility]PS [facility] - 09/23/2021 Unless otherwise specified, test(s) performed at: [facility], [address] [place] [address] SPEECH AND LANGUAGE ASSISTANT: Steve Younger M.D. For any questions, please call customer service at FREQUENCY:MONTHLY Resulting Agency Comment Specimen source: Serum Sebastian Charles MD LAB BLOOD ORDERABLES Performing Organization Address City/State/ZIP Code Phon e Number APS SPECTRA [facility] (ABNORMAL) HEMATOLOGY (09/22/2021) [facility] gist Method Time Signature WBC 4.99 [...] / Volume Laterality 09/22/2021 09/23/2021 1:30 PM MOLDER MACHINE TENDER Narrative APS SPECTRA [facility] - 09/23/2021 Unless otherwise specified, test(s) performed at: [facility], [address] [place] [address] SPEECH AND LANGUAGE ASSISTANT: Steve Younger M.D. For any questions, please call customer service at FREQUENCY:MONTHLY Resulting Agency Comment Specimen source: Blood Sebastian Charles MD LAB BLOOD ORDERABLES Performing Organization Address City/State/ZIP Code Phon e Number APS SPECTRA [facility] documented in this encounter Visit Diagnoses Not on filedocumented in this encounter Care Teams Account Collector Relationship Specialty Start Date End Date Harish Silver MD PCP - General 05/17/19 [address] [place] [address] documented as of this encounter
--- OUTSIDE RECORDS SUMMARY | 2022-06-14 06:24 | XMS_ITS | Encounter Summary ---
:1940 Author Organization [facility] Address [address] [place] [address] Care Team Providers Name Role Phone Harish Silver MD Primary Care Provider Encounter Details Date Type Department Care Team Description 01/12/2022 Orders Only [facility] O f Sebastian Mohan MD [phone] [place] [address] [place], [place] [phone] (Wo rk) Social History Tobacco Use [...] 01/13/2022 Unless otherwise specified, test(s) performed at: [facility], [address] [place] [address] BINDERY CHIEF: Steve Younger M.D. For any questions, please call customer service at FREQUENCY:OTHER Resulting Agency Comment Specimen source: Blood Sebastian Charles MD LAB BLOOD ORDERABLES Performing Organization Address City/State/ZIP Code Phon e Number APS SPECTRA [facility] documented in this encounter Visit Diagnoses Not on filedocumented in this encounter Care Teams Ballistics Professor Relationship Specialty Start Date End Date Harish Silver MD PCP - General 05/17/19 [address] [place] [address] documented as of this encounter
--- OUTSIDE RECORDS SUMMARY | 2022-06-14 06:24 | XMS_ITS | Encounter Summary ---
:1940 Author Organization [facility] Address [address] [place] [address] Care Team Providers Name Role Phone Harish Silver MD Primary Care Provider Encounter Details Date Type Department Care Team Description 10/19/2021 Orders Only [facility] f Sebastian Mohan MD [address] [place] [address] [place], [place] [phone] (Wo rk) Social History Tobacco Use [...] Volume Laterality 10/19/2021 10/20/2021 12:2 2 PM ADJUNCT COMMUNICATIONS FACULTY MEMBER Resulting Agency Comment Specimen source: Urine Sebastian [...] Volume Laterality 10/19/2021 10/20/2021 12:2 2 PM ADJUNCT COMMUNICATIONS FACULTY MEMBER Narrative APS SPECTRA [facility] - 10/20/2021 Unless otherwise specified, test(s) performed at: [facility], [address] [place] [address] CIGAR PACKING EXAMINER: Steve Younger M.D. For any questions, please [...] Volume Laterality 10/19/2021 10/20/2021 12:0 9 PM ADJUNCT COMMUNICATIONS FACULTY MEMBER Resulting Agency Comment Specimen source: PD Fluid [...] Volume Laterality 10/19/2021 10/20/2021 12:0 9 PM ADJUNCT COMMUNICATIONS FACULTY MEMBER Resulting Agency Comment Specimen source: PD Fluid [...] Volume Laterality 10/19/2021 10/20/2021 12:0 9 PM ADJUNCT COMMUNICATIONS FACULTY MEMBER Resulting Agency Comment Specimen source: PD Fluid [...] Volume Laterality 10/19/2021 10/20/2021 12:0 9 PM ADJUNCT COMMUNICATIONS FACULTY MEMBER Narrative APS SPECTRA [facility] - 10/20/2021 Unless otherwise specified, test(s) performed at: [facility], [address] [place] [address] CIGAR PACKING EXAMINER: Steve Younger M.D. For any questions, please [...] Volume Laterality 10/19/2021 10/20/2021 12:1 5 PM ADJUNCT COMMUNICATIONS FACULTY MEMBER Resulting Agency Comment Specimen source: PD Fluid [...] Volume Laterality 10/19/2021 10/20/2021 12:1 5 PM ADJUNCT COMMUNICATIONS FACULTY MEMBER Resulting Agency Comment Specimen source: PD Fluid [...] Volume Laterality 10/19/2021 10/20/2021 12:1 5 PM ADJUNCT COMMUNICATIONS FACULTY MEMBER Resulting Agency Comment Specimen source: PD Fluid Sebastian Charles MD LAB BLOOD ORDERABLES Performing Organization Address City/State/ZIP Code Phon e Number APS SPECTRA [facility] P.E.T. INTERPRETATION (10/19/2021) [facility] gist Method Time Signature Solute Average [...] 0 .82-1.03 ?? 0.43-0.24 ?? 0.25-0.12 ?? [id number] Average High ? 0.49-0.62 ?? 0.66- 0.81 ?? 0.54-0.44 ?? 0.37-0.26 ?? 0371-2857 Average ?0.48 ?0.65 ?0.55 ?0.38 ?2368 Average Low ?0.34-0.47 ?? 0.50 -0.64 ?? 0.66-0.56 ?? 0.49-0.39 ?? [phone] Low ?0.23-0.33 ?? 0.34-0.49 ?? 0.78-0.67 ?? 0.61-0.50 ?? [phone] *Concetta GREY, Bridgette KD, Farooq R, Jovani [...] Volume Laterality 10/19/2021 10/20/2021 12:1 5 PM ADJUNCT COMMUNICATIONS FACULTY MEMBER Narrative APS SPECTRA [facility] - 10/20/2021 Unless otherwise specified, test(s) performed at: [facility], [address] [place] [address] CIGAR PACKING EXAMINER: Steve Younger M.D. For any questions, please [...] have been corrected fo r glucose interference. [facility] glucose correction factor f or creatinine [...] Volume Laterality 10/19/2021 10/20/2021 11:5 9 AM ADJUNCT COMMUNICATIONS FACULTY MEMBER Resulting Agency Comment Specimen source: PD Fluid [...] Volume Laterality 10/19/2021 10/20/2021 11:5 9 AM ADJUNCT COMMUNICATIONS FACULTY MEMBER Narrative APS SPECTRA [facility] - 10/20/2021 Unless otherwise specified, test(s) performed at: [facility], [address] [place] [address] CIGAR PACKING EXAMINER: Steve Younger M.D. For any questions, please [...] Volume Laterality 10/19/2021 10/20/2021 12:1 9 PM ADJUNCT COMMUNICATIONS FACULTY MEMBER Resulting Agency Comment Specimen source: PD Fluid Sebastian Charles MD LAB BLOOD ORDERABLES Performing Organization Address [facility] Code Phon e Number APS SPECTRA [...] Volume Laterality 10/19/2021 10/20/2021 12:1 9 PM ADJUNCT COMMUNICATIONS FACULTY MEMBER Resulting Agency Comment Specimen source: PD Fluid Sebastian Charles MD LAB BLOOD ORDERABLES Performing Organization Address City/[facility] Code Phon e Number APS SPECTRA [...] Volume Laterality 10/19/2021 10/20/2021 12:1 9 PM ADJUNCT COMMUNICATIONS FACULTY MEMBER Resulting Agency Comment Specimen source: PD Fluid [...] Volume Laterality 10/19/2021 10/20/2021 12:1 9 PM ADJUNCT COMMUNICATIONS FACULTY MEMBER Narrative APS SPECTRA [facility] - 10/20/2021 Unless otherwise specified, test(s) performed at: [facility], [address] [place] [address] CIGAR PACKING EXAMINER: Steve Younger M.D. For any questions, please [...] / Volume Laterality 10/19/2021 10/20/2021 9:08 AM ADJUNCT COMMUNICATIONS FACULTY MEMBER Narrative APS SPECTRA [facility] - 10/20/2021 Unless otherwise specified, test(s) performed at: [facility], [address] [place], [place] [id number] CIGAR PACKING EXAMINER: Steve Younger M.D. For any questions, please call customer service at FREQUENCY:MONTHLY Resulting Agency Comment Specimen source: Serum Sebastian Charles MD LAB BLOOD ORDERABLES Performing Organization Address City/[facility] Phon e Number APS SPECTRA [facility] PATIENT INFORMATION (10/19/2021) athologist [facility] Urea Volume 43.6 L APS SPECTRA Distribution [facility] ([place]oraida) Specimen (Source) Anatomical Collection Method Collection Time Re ceived Time Location / / Volume Laterality 10/19/2021 10/20/2021 11:5 9 AM ADJUNCT COMMUNICATIONS FACULTY MEMBER Narrative APS SPECTRA [facility] - 10/20/2021 Unless otherwise specified, test(s) performed at: [facility], [address] [place] [address] CIGAR PACKING EXAMINER: Steve Younger M.D. For any questions, please call customer service at FREQUENCY:MONTHLY Resulting Agency Comment Specimen source: PD Fluid Sebastian Charles MD LAB BLOOD ORDERABLES Performing Organization Address City/[facility]/ZIP [place] Phon e Number APS SPECTRA [facility] IMMUNO CHEMISTRY (10/19/2021) P athologist Signature Hep B Surface Negative Negative APS SPECTRA Ag [facility] Specimen (Source) Anatomical Collection Method Collection Time Re ceived Time Location / / Volume Laterality 10/19/2021 10/20/2021 9:08 AM ADJUNCT COMMUNICATIONS FACULTY MEMBER Resulting Agency Comment Specimen source: Serum Sebastian [...] / Volume Laterality 10/19/2021 10/20/2021 9:08 AM ADJUNCT COMMUNICATIONS FACULTY MEMBER Narrative APS SPECTRA [facility] - 10/20/2021 Unless otherwise specified, test(s) performed at: [facility], [address] [place] [address] CIGAR PACKING EXAMINER: Steve Younger M.D. For any questions, please call customer service at FREQUENCY:MONTHLY Resulting Agency Comment Specimen source: PD Fluid Sebastian Charles MD LAB BLOOD ORDERABLES Performing Organization Address City/[facility] Phon e Number APS SPECTRA [facility] (ABNORMAL) HEMATOLOGY (10/19/2021) [facility] gist Method Time Signature WBC 7.38 [...] / Volume Laterality 10/19/2021 10/20/2021 8:46 AM ADJUNCT COMMUNICATIONS FACULTY MEMBER Narrative APS SPECTRA [facility] - 10/20/2021 Unless otherwise specified, test(s) performed at: [facility], [address] [place], [place] [id number] CIGAR PACKING EXAMINER: Steve Younger M.D. For any questions, please call customer service at FREQUENCY:MONTHLY Resulting Agency Comment Specimen source: Blood Sebastian Charles MD LAB BLOOD ORDERABLES Performing Organization Address City/[facility] Phon e Number APS SPECTRA [...] 10/20/2021 Unless otherwise specified, test(s) performed at: [facility], [address] [place] [address] CIGAR PACKING EXAMINER: Steve Younger M.D. For any questions, please call customer service at FREQUENCY:MONTHLY Resulting Agency Comment Specimen source: PD Fluid Sebastian Charles MD LAB BLOOD ORDERABLES Performing Organization Address City/[facility] Phon e Number APS SPECTRA [facility] documented in this encounter Visit Diagnoses Not on filedocumented in this encounter Care Teams Equipment Associate Relationship Specialty Start Date End Date Harish Silver MD PCP - General 05/17/19 [address] [place] [address] documented as of this encounter
--- OUTSIDE RECORDS SUMMARY | 2022-06-14 06:24 | XMS_ITS | Encounter Summary ---
:1940 Author Organization [facility] Address [address] [place] [address] Care Team Providers Name Role Phone Harish Silver MD Primary Care Provider Encounter Details Date Type Department Care Team Description 05/25/2021 Documentation Only [facility] [address] [place] [address] 220 [place] [address] Social History Tobacco Use Types Packs/Day Years Used Date Smoking Tobacco: Never Alcohol Use Standard Drinks/Week Comments No 0 (1 standard drink = 0.6 oz pure alcoho l) Sex Assigned at Date Recorded Not on file documented as of this encounter Plan of Treatment Not on filedocumented as of this encounter Visit Diagnoses Not on filedocumented in this encounter Care Teams Alarm Signaler Relationship Specialty Start Date End Date Harish Silver MD PCP - General 05/17/19 [address] [place] [address] documented as of this encounter
--- OUTSIDE RECORDS SUMMARY | 2022-06-14 06:24 | XMS_ITS | Encounter Summary ---
:1940 Author Organization [facility] Address [address] [place] [address] Care Team Providers Name Role Phone Harish Silver MD Primary Care Provider Encounter Details Date Type Department Care Team Description 09/15/2021 Treatment [facility] Sebastian Jimenez MD [address] [place] [address] [place], [place] [phone] (Wo rk) Social History Tobacco Use Types [...] Name: David Castro : 1940 Chart #: [id number] Sex: M Has the patient previously been [...] on filedocumented in this encounter Care Teams Submarine Worker Relationship Specialty Start Date End Date Harish Silver MD PCP - General 05/17/19 [address] [place] [address] documented as of this encounter
--- OUTSIDE RECORDS SUMMARY | 2022-06-14 06:24 | XMS_ITS | Encounter Summary ---
:1940 Author Organization [facility] Address [address] [place] [address] Care Team Providers Name Role Phone Harish Silver MD Primary Care Provider Encounter Details Date Type Department Care Team Description 03/30/2022 Orders Only [facility] f Sebastian Mohan MD [phone] [place] [address] [place], [place] [phone] (Wo rk) Social History Tobacco Use [...] this encounter Results (ABNORMAL) Spectrae Chemistry (03/30/2022) [facility] gist Method Time Signature BUN 76 [...] 03/31/2022 Unless otherwise specified, test(s) performed at: [facility], [address] [place] [address], [place] [address] COLLECTIONS OFFICER: Dariel Doyle M.D., Ph.D For any questions, please call customer service at FREQUENCY:MONTHLY Resulting Agency Comment Specimen source: Serum Sebastian Charles MD LAB BLOOD ORDERABLES Performing Organization Address City/State/ZIP Code Phon e Number [facility] (ABNORMAL) HEMATOLOGY (03/30/2022) [facility] gist Method Time Signature WBC 6.97 [...] 03/31/2022 Unless otherwise specified, test(s) performed at: [facility], [address] [place] [address], [place] [address] COLLECTIONS OFFICER: Dariel Doyle M.D., Ph.D For any questions, please call customer service at FREQUENCY:MONTHLY Resulting Agency Comment Specimen source: Blood Sebastian Charles MD LAB BLOOD ORDERABLES Performing Organization Address City/State/ZIP Code Phon e Number [facility] documented in this encounter Visit Diagnoses Not on filedocumented in this encounter Care Teams Block Hand Relationship Specialty Start Date End Date Harish Silver MD PCP - General 05/17/19 [address] [place] [address] documented as of this encounter
--- OUTSIDE RECORDS SUMMARY | 2022-06-14 06:24 | XMS_ITS | Encounter Summary ---
:1940 Author Organization [facility] Address [address] [place] [address] Care Team Providers Name Role Phone Harish Silver MD Primary Care Provider Encounter Details Date Type Department Care Team Description 04/22/2022 Orders Only [facility] f Sebastian Mohan MD [phone] [place] [address] [place], [place] [phone] (Wo rk) Social History Tobacco Use [...] and its performa nce characteristics determined by [facility]. It has not been cleared or approved by the FDA. The laboratory is regulated under CLIA a s qualified to perform high complexity testing. This test is used fo r clinical purposes. It should not be regarded as investigational or fo r research. Test performed at [facility], [address] [place] [address]. Telephone . [facility] or: Steve Younger MD. Specimen (Source) Anatomical Collection Method Collection Time Re ceived Time Location / / Volume Laterality 04/22/2022 04/26/2022 8:56 AM CDT Narrative [facility] - 04/26/2022 Unless otherwise specified, test(s) performed at: [facility], [address] [place] [address], [place] [address] MONEY ORDER CLERK: Dariel Doyle M.D., Ph.D For any [...] 04/23/2022 Unless otherwise specified, test(s) performed at: [facility], [address] [place] [address], [place] [address] MONEY ORDER CLERK: Dariel Doyle M.D., Ph.D For any [...] MD LAB URINE ORDERABLES Performing Organization Address City/State/[facility] Code Phon e Number [facility] PD ADEQUACY (04/22/2022) athologist Signature Kt/V, Residual 2.51 [facility] Creat Clear, 206 L/wk [facility] Urine Nor Wkly [facility] Specimen (Source) Anatomical Collection Method Collection Time Re ceived Time Location / / Volume Laterality 04/22/2022 04/23/2022 4:41 AM CDT Narrative [facility] - 04/23/2022 Unless otherwise specified, test(s) performed at: [facility], [address] [place] [address], [place] [address] MONEY ORDER CLERK: Dariel Doyle M.D., Ph.D For any questions, please call customer service at FREQUENCY:MONTHLY Resulting Agency Comment Specimen source: Urine Sebastian Charles MD LAB BODY FLUIDS AND STOOLS O RDERABLES Performing Organization Address [facility] Phon e Number [facility] PDF [...] have been corrected fo r glucose interference. [facility] glucose correction factor f or creatinine [...] 04/23/2022 Unless otherwise specified, test(s) performed at: [facility], [address] [place] [address], [place] [address] MONEY ORDER CLERK: Dariel Doyle M.D., Ph.D For any [...] 04/23/2022 Unless otherwise specified, test(s) performed at: [facility], [address] [place] [address], [place] [address] MONEY ORDER CLERK: Dariel Doyle M.D., Ph.D For any questions, please call customer service at FREQUENCY:MONTHLY Resulting Agency Comment Specimen source: Serum Sebastian Charles MD LAB BLOOD ORDERABLES Performing Organization Address City/[facility] Phon e Number APS SPECTRA [facility] [...] 04/23/2022 Unless otherwise specified, test(s) performed at: [facility], [address] [place] [address], [place] [address] MONEY ORDER CLERK: Dariel Doyle M.D., Ph.D For any questions, please call customer service at FREQUENCY:MONTHLY Resulting Agency Comment Specimen source: PD Fluid Sebastian Charles MD LAB BLOOD ORDERABLES Performing Organization Address City/[facility] Phon e Number APS SPECTRA [facility] [...] 04/23/2022 Unless otherwise specified, test(s) performed at: [facility], [address] [place] [address], [place] [address] MONEY ORDER CLERK: Dariel Doyle M.D., Ph.D For any questions, please call customer service at FREQUENCY:MONTHLY Resulting Agency Comment Specimen source: PD Fluid Sebastian Charles MD LAB BLOOD ORDERABLES Performing Organization Address City/State/ZIP Code Phon e Number [facility] documented in this encounter Visit Diagnoses Not on filedocumented in this encounter Care Teams Building Performance Consultant Relationship Specialty Start Date End Date Harish Silver MD PCP - General 05/17/19 [address] [place] [address] documented as of this encounter
--- OUTSIDE RECORDS SUMMARY | 2022-06-14 06:24 | XMS_ITS | Encounter Summary ---
:1940 Author Organization [facility] Address [address] [place] [address] Care Team Providers Name Role Phone Harish Silver MD Primary Care Provider Encounter Details Date Type Department Care Team Description 12/01/2021 Orders Only [facility] f Sebastian Mohan MD [phone] [place] [address] [place], [place] [phone] (Wo rk) Social History Tobacco Use [...] in this encounter Results (ABNORMAL) HEMATOLOGY (12/01/2021) [facility] Method Time Signature WBC 6.62 [...] 2021 Unless otherwise specified, test(s) performed at: [facility], [address] [place] [address] SEAMAN OFFICER: Steve Younger M.D. For any questions, [...] 2021 Unless otherwise specified, test(s) performed at: [facility], [address] [place] [address] SEAMAN OFFICER: Steve Younger M.D. For any questions, [...] 2021 Unless otherwise specified, test(s) performed at: [facility], [address] [place] [address] SEAMAN OFFICER: Steve Younger M.D. For any questions, please call customer service at FREQUENCY:MONTHLY Resulting Agency Comment Specimen source: Plasma Sebastian Charles MD LAB BLOOD ORDERABLES Performing Organization Address City/State/ZIP Code Phon e Number [facility] documented in this encounter Visit Diagnoses Not on filedocumented in this encounter Care Teams Railroad Police Relationship Specialty Start Date End Date Harish Silver MD PCP - General 05/17/[address] [place] [address] documented as of this encounter
--- OUTSIDE RECORDS SUMMARY | 2022-06-14 06:24 | XMS_ITS | Encounter Summary ---
:1940 Author Organization [facility] Address [address] [place] [address] Care Team Providers Name Role Phone Harish Silver MD Primary Care Provider Encounter Details Date Type Department Care Team Description 10/27/2021 Treatment [facility] Sebastian Jimenez MD [address] [place] [address] [place], [place] [phone] (Wo rk) Social History Tobacco Use Types [...] Name: David Castro : 1940 Chart #: [id number] Sex: M This patient was personally seen for a complete visit as part of routine monthly dialysis care. A review of the dialysis treatment, blood pressure, estimated dry weight, and recent lab values was made.These were discussed with the patient and staff as necessary. TERMINAL MANAGER: Sebastian Charles MD LOCATION: [phone] SCHEDULE: No Routine Schedule Subjective 10/27/21: Georges [...] Access Assessment Placed on: 07/[address] aKur Leaking slightly as above Anemia Assessment HEMOGLOBIN [...] filedocumented in this encounter Care Teams Fire Code Inspector Relationship Specialty Start Date End Date Harish Silver MD PCP - General 05/17/19 [address] [place] [address] documented as of this encounter
--- OUTSIDE RECORDS SUMMARY | 2022-06-14 06:24 | XMS_ITS | Encounter Summary ---
:1940 Author Organization [facility] Address [address] [place] [address] Care Team Providers Name Role Phone Harish Silver MD Primary Care Provider Encounter Details Date Type Department Care Team Description 05/25/2021 Documentation Only [facility] [place] [address] [place] [address] [address] [place] [address] Social History Tobacco Use Types Packs/Day Years Used Date Smoking Tobacco: Never Alcohol Use Standard Drinks/Week Comments No 0 (1 standard drink = 0.6 oz pure alcoho l) Sex Assigned at Date Recorded Not on file documented as of this encounter Plan of Treatment Not on filedocumented as of this encounter Visit Diagnoses Not on filedocumented in this encounter Care Teams Geriatric Psychiatrist Relationship Specialty Start Date End Date Harish Silver MD PCP - General 05/17/19 [address] [place] [address] documented as of this encounter
--- OUTSIDE RECORDS SUMMARY | 2022-06-14 06:24 | XMS_ITS | Encounter Summary ---
:1940 Author Organization [facility] Address [address] [place] [address] Care Team Providers Name Role Phone Harish Silver MD Primary Care Provider Encounter Details Date Type Department Care Team Description 09/13/2021 Orders Only [facility] O f Sebastian Mohan MD [phone] [place] [address] [place], [place] [phone] (Wo rk) Social History Tobacco Use [...] in this encounter Results (ABNORMAL) HEMATOLOGY (09/13/2021) [facility] Method Time Signature WBC 6.99 4.80 - [...] / Volume Laterality 09/13/2021 09/14/2021 8:39 PM NUTRITION PROFESSOR Narrative [facility] - 09/14/2021 Unless otherwise specified, test(s) performed at: [facility], [address] [place] [address] TABLE MAKER: Steve Younger M.D. For any questions, please call customer service at FREQUENCY:MONTHLY Resulting Agency Comment Specimen source: Blood Sebastian Charles MD LAB BLOOD ORDERABLES Performing Organization Address City/State/ZIP Code Phon e Number [facility] TRACE ELEMENTS (09/13/2021) athologist Signature Aluminum <5 0 - 10 [facility] mcg/L [facility] Comment: This test was developed and its performa nce characteristics determined by [facility]. It has not been cleared or approved by the FDA. The laboratory is regulated under CLIA a s qualified to perform high complexity testing. This test is used fo r clinical purposes. It should not be regarded as investigational or fo r research. Specimen (Source) Anatomical Collection Method Collection Time Re ceived Time Location / / Volume Laterality 09/13/2021 09/14/2021 1:33 PM NUTRITION PROFESSOR Narrative [facility] - 09/14/2021 Unless otherwise specified, test(s) performed at: [facility], [address] [place], [place] [id number] TABLE MAKER: Steve Younger M.D. For any questions, please [...] / Volume Laterality 09/13/2021 09/14/2021 1:06 PM NUTRITION PROFESSOR Narrative [facility] - 09/14/2021 Unless otherwise specified, test(s) performed at: [facility], [address] [place], [place] [id number] TABLE MAKER: Steve Younger M.D. For any questions, please call customer service at FREQUENCY:MONTHLY Resulting Agency Comment Specimen source: Serum Sebastian Charles MD LAB BLOOD BANK TEST ORDERABL ES Performing Organization Address City/[facility]/ZIP [facility] [place] Number APS [...] / Volume Laterality 09/13/2021 09/14/2021 1:06 PM NUTRITION PROFESSOR Resulting Agency Comment Specimen source: Serum Sebastian Charles MD LAB BLOOD ORDERABLES Performing Organization Address City/State/ZIP Code Phon e Number [facility]PS SPECTRA [facility] (ABNORMAL) Spectrae Chemistry (09/13/2021) [facility] gist Method Time Signature BUN 73 [...] / Volume Laterality 09/13/2021 09/14/2021 1:06 PM NUTRITION PROFESSOR Narrative [facility] - 09/14/2021 Unless otherwise specified, test(s) performed at: [facility], [address] [place] [address] TABLE MAKER: Steve Younger M.D. For any questions, please call customer service at FREQUENCY:MONTHLY Resulting Agency Comment Specimen source: Serum Sebastian Charlse MD LAB BLOOD ORDERABLES Performing Organization Address City/State/ZIP Code Phon e Number [facility]PS SPECTRA [facility] (ABNORMAL) Spectrae Chemistry (09/13/2021) P athologist Signature PTH 188 (H) 16 - 80 [facility] pg/mL [facility] Specimen (Source) Anatomical Collection Method Collection Time Re ceived Time Location / / Volume Laterality 09/13/2021 09/14/2021 1:13 PM NUTRITION PROFESSOR Narrative [facility] - 09/14/2021 Unless otherwise specified, test(s) performed at: [facility], [address] [place] [address] TABLE MAKER: Steve Younger M.D. For any questions, please call customer service at FREQUENCY:MONTHLY Resulting Agency Comment Specimen source: Plasma Sebastian Charles MD LAB BLOOD ORDERABLES Performing Organization Address City/State/ZIP Code Phon e Number [facility]PS [facility] documented in this encounter Visit Diagnoses Not on filedocumented in this encounter Care Teams Investor Relations Analyst Relationship Specialty Start Date End Date Harish Silver MD PCP - General 05/17/19 [address] [place] [address] documented as of this encounter
--- OUTSIDE RECORDS SUMMARY | 2022-06-14 06:24 | XMS_ITS | Encounter Summary ---
:1940 Author Organization [facility] Address [address] [place] [address] Care Team Providers Name Role Phone Harish Silver MD Primary Care Provider Encounter Details Date Type Department Care Team Description 12/01/2021 Treatment [facility] Sebastian Jimenez MD [address] [place] [address] [place], [place] [phone] (Wo rk) Social History Tobacco Use Types [...] Name: David Castro : 1940 Chart #: [id number] Sex: M This patient was personally seen for a complete visit as part of routine monthly dialysis care. A review of the dialysis treatment, blood pressure, estimated dry weight, and recent lab values was made.These were discussed with the patient and staff as necessary. WIRE BORDER ASSEMBLER: Sebastian Charles MD LOCATION: [phone] SCHEDULE: No Routine Schedule Subjective 12/01/21: Georges [...] on filedocumented in this encounter Care Teams Harness Repairer Relationship Specialty Start Date End Date Harish Silver MD PCP - General 05/17/19 [address] [place] [place] [address] documented as of this encounter
--- OUTSIDE RECORDS SUMMARY | 2022-06-14 06:24 | XMS_ITS | Encounter Summary ---
:1940 Author Organization [facility] Address [address] [place] [address] Care Team Providers Name Role Phone Harish Silver MD Primary Care Provider Encounter Details Date Type Department Care Team Description 12/22/2021 Treatment [facility] O Sebastian Jimenez MD [address] [place] [address] [place], [place] [phone] (Wo rk) Social History Tobacco Use Types [...] Name: David Castro : 1940 Chart #: [id number] Sex: M This patient was personally seen for a complete visit as part of routine monthly dialysis care. A review of the dialysis treatment, blood pressure, estimated dry weight, and recent lab values was made.These were discussed with the patient and staff as necessary. DAIRY NUTRITIONIST: Sebastian Charles MD LOCATION: [phone] SCHEDULE: No Routine Schedule Subjective 12/22/21: Georges was unfortunately hospitalized twice since our last visit. He went home and was very weak after I saw him last month on 12/01, went to ER and was admitted at [facility] from 12/02-12/08, had empyemaand chest tube was [...] Feeding tube was considered in hospital at [facility] but he declined. He is having liquid [...] fluid as this was not done at [facility] as it was thought to be [...] on filedocumented in this encounter Care Teams Packing Machine Tender Relationship Specialty Start Date End Date Harish Silver MD PCP - General 05/17/19 [address] [place] [address] documented as of this encounter
--- OUTSIDE RECORDS SUMMARY | 2022-06-14 06:24 | XMS_ITS | Encounter Summary ---
:1940 Author Organization [facility] Address [address] [place] [address] Care Team Providers Name Role Phone Harish Silver MD Primary Care Provider Encounter Details Date Type Department Care Team Description 11/10/2021 Orders Only [facility] O f Sebastian Mohan MD [phone] [place] [address] [place], [place] [phone] (Wo rk) Social History Tobacco Use [...] 11/11/2021 Unless otherwise specified, test(s) performed at: [facility], [address] [place] [address] FIELD SCOUT: Steve Younger M.D. For any questions, please [...] have been corrected fo r glucose interference. [facility] glucose correction factor f or creatinine is [...] 11/11/2021 Unless otherwise specified, test(s) performed at: [facility], [address] [place], [place] [id number] FIELD SCOUT: Steve Younger M.D. For any questions, please [...] 11/11/2021 Unless otherwise specified, test(s) performed at: [facility], [address] [place] [address] FIELD SCOUT: Steve Younger M.D. For any questions, please call customer service at FREQUENCY:MONTHLY Resulting Agency Comment Specimen source: PD Fluid Sebastian Charles MD LAB BLOOD ORDERABLES Performing Organization Address City/[facility] [...] 11/11/2021 Unless otherwise specified, test(s) performed at: [facility], [address] [place] [address] FIELD SCOUT: Steve Younger M.D. For any questions, please call customer service at FREQUENCY:MONTHLY Resulting Agency Comment Specimen source: Serum Sebastian Charles MD LAB BLOOD ORDERABLES Performing Organization Address City/[facility] Phon e Number APS SPECTRA [facility] PATIENT [...] 11/11/2021 Unless otherwise specified, test(s) performed at: [facility], [address] [place] [address] FIELD SCOUT: Steve Younger M.D. For any questions, please call customer service at FREQUENCY:MONTHLY Resulting Agency Comment Specimen source: PD Fluid Sebastian Charles MD LAB BLOOD ORDERABLES Performing Organization Address City/[facility] Phon e Number APS SPECTRA [facility] PATIENT [...] 11/11/2021 Unless otherwise specified, test(s) performed at: [facility], [address] [place] [address] FIELD SCOUT: Steve Younger M.D. For any questions, please call customer service at FREQUENCY:MONTHLY Resulting Agency Comment Specimen source: PD Fluid Sebastian Charles MD LAB BLOOD ORDERABLES Performing Organization Address City/State/ZIP Code Phon e Number [facility]PS [facility] documented in this encounter Visit Diagnoses Not on filedocumented in this encounter Care Teams Collection Systems Worker Relationship Specialty Start Date End Date Harish Silver MD PCP - General 05/17/[address] [place] [address] documented as of this encounter
--- OUTSIDE RECORDS SUMMARY | 2022-06-14 06:24 | XMS_ITS | Encounter Summary ---
:1940 Author Organization [facility] Address [address] [place] [address] Care Team Providers Name Role Phone Harish Silver MD Primary Care Provider Encounter Details Date Type Department Care Team Description 03/02/2022 Orders Only [facility] f Sebastian Mohan MD [phone] [place] [address] [place], [place] [phone] (Wo rk) Social History Tobacco Use [...] 03/03/2022 Unless otherwise specified, test(s) performed at: [facility] [employer] [facility], [address] [place] [address], [place] [address] JIGSAW OPERATOR: Dariel Doyle M.D., Ph.D For any questions, [...] MD LAB BLOOD ORDERABLES Performing Organization Address [facility] Code Phon e Number APS SPECTRA [...] 03/03/2022 Unless otherwise specified, test(s) performed at: [facility], [address] [place] [address], [place] [address] JIGSAW OPERATOR: Dariel Doyle M.D., Ph.D For any questions, please call customer service at FREQUENCY:MONTHLY Resulting Agency Comment Specimen source: PD Fluid Sebastian Charles MD LAB BLOOD ORDERABLES Performing Organization Address City/[facility]/ZIP Code Phon e Number APS [...] have been corrected fo r glucose interference. [facility] [facility] glucose correction factor f or creatinine is [...] 03/03/2022 Unless otherwise specified, test(s) performed at: [facility], [address] [place] [address] darlin [facility] [address] JIGSAW OPERATOR: Dariel Doyle M.D., Ph.D For any questions, [...] 03/03/2022 Unless otherwise specified, test(s) performed at: [facility], [address] [place] [address], [place] [address] JIGSAW OPERATOR: Dariel Doyle M.D., Ph.D For any questions, [...] 03/03/2022 Unless otherwise specified, test(s) performed at: [facility], [address] [place] [address], [place] [address] JIGSAW OPERATOR: Dariel Doyle M.D., Ph.D For any questions, please call customer service at FREQUENCY:MONTHLY Resulting Agency Comment Specimen source: Blood Sebastian Charles MD LAB BLOOD ORDERABLES Performing Organization Address City/[facility] Phon e Number APS SPECTRA [facility] (ABNORMAL) Spectrae Chemistry (03/02/2022) P athologist Signature PTH 263 (H) 16 - 80 APS SPECTRA pg/mL [facility] Specimen (Source) Anatomical Collection Method Collection Time Re ceived Time Location / / Volume Laterality 03/02/2022 03/03/2022 2:44 AM CDT Narrative APS SPECTRA [facility] - 03/03/2022 Unless otherwise specified, test(s) performed at: [facility], [address] [place] [address], [place] [address] JIGSAW OPERATOR: Dariel Doyle M.D., Ph.D For any questions, please call customer service at FREQUENCY:MONTHLY Resulting Agency Comment Specimen source: Plasma Sebastian Charles MD LAB BLOOD ORDERABLES Performing Organization Address City/[facility] Phon e Number APS [...] 03/03/2022 Unless otherwise specified, test(s) performed at: [facility], [address] [place], [place] [address] [address] JIGSAW OPERATOR: Dariel Doyle M.D., Ph.D For any questions, please call customer service at FREQUENCY:MONTHLY Resulting Agency Comment Specimen source: PD Fluid Sebastian Charles MD LAB BLOOD ORDERABLES Performing Organization Address City/State/ZIP Code Phon e Number APS SPECTRA [facility] documented in this encounter Visit Diagnoses Not on filedocumented in this encounter Care Teams Rn Ostomy Relationship Specialty Start Date End Date Harish Silver MD PCP - General 05/17/19 [facility] [place] [address] documented as of this encounter
--- OUTSIDE RECORDS SUMMARY | 2022-06-14 06:24 | XMS_ITS | Encounter Summary ---
:1940 Author Organization [facility] Address [address] [place] [address] Care Team Providers Name Role Phone Harish Silver MD Primary Care Provider Encounter Details Date Type Department Care Team Description 09/13/2021 Treatment [facility] Sebastian Jimenez MD [address] [place], [place] [phone] (Wo rk) Social History Tobacco Use Types [...] Name: David Castro : 1940 Chart #: [id number] Sex: M Patient Type: ESRD Modality: Peritoneal Dialysis Tape Keller Operator: Sebastian Charles MD Location: [phone] Schedule: No Routine Schedule Initial Access Date [...] on filedocumented in this encounter Care Teams Cannery Tender Engineer Relationship Specialty Start Date End Date Harish Silver MD PCP - General 05/17/19 [address] [place] [address] documented as of this encounter
--- OUTSIDE RECORDS SUMMARY | 2022-06-14 06:24 | XMS_ITS | Encounter Summary ---
:1940 Author Organization [facility] Address [address] [place] [address] Care Team Providers Name Role Phone Harish Silver MD Primary Care Provider Encounter Details Date Type Department Care Team Description 09/22/2021 Treatment [facility] Sebastian Jimenez MD [address] [place], [place] [phone] (Wo rk) Social History Tobacco Use Types [...] Name: David Castro : 1940 Chart #: [id number] Sex: M This patient was personally seen for a complete visit as part of routine monthly dialysis care. A review of the dialysis treatment, blood pressure, estimated dry weight, and recent lab values was made.These were discussed with the patient and staff as necessary. FLAKEBOARD LINE TENDER: Sebastian Charles MD LOCATION: [phone] SCHEDULE: No Routine Schedule Subjective 09/22/21: Georges [...] on filedocumented in this encounter Care Teams Clinical Pharmacy Technician Relationship Specialty Start Date End Date Harish Silver MD PCP - General 05/17/19 [address] [place] [address] documented as of this encounter
--- OUTSIDE RECORDS SUMMARY | 2022-06-14 06:25 | XMS_ITS | Continuity of Care Document ---
:1940 Author Organization [facility] Address [address] [address] [place] [address] Phone Care Team Providers Name Role Phone Kimo Adams MD Unavailable Unavailable Allergies, Adverse Reactions, Alerts Substance [...] Visit Copied on Encounter FACUNDO Cerrato No [facility] Information MD Malin. [facility], [address] [place] [address], [address] [place], [facility] [address], s, [place], [place] [id number], , [place], [id number], tel:[phone]. [phone] tel:[phone] FACUNDO Leatha FACUNDO AchalasiaHema Asad MOISE Referr ing Digestive Endoscopy temesisAchala [facility]. Provid er: [facility] VERA, Paul satya of cardia [address] [place], [address], Street [place], [address] [place] [address], [address] [facility] s, [place], [place] 601, [id number], , [place], [place] [id number], [place], [address]. tel:+[phone] [place]. tel:[phone] tel:[phone] FACUNDO [place] [facility] Referr ing Digestive FACUNDO cardiaGastro- MD Malin. 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 tel:+[phone] malformations [place]. 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 [facility], Endoscopy 1 [address] [facility] [address], [address] NE, [facility] [address], [place], [place], [place] [id number], , [place], [place] [id number], tel:[phone]. [phone] tel:[phone] [facility] GI Achalasia Gerri MOISE Referring Digestive Clinic Symptoms - Marcelo. Provider: Health [place], or 1 [address] [facility] Joe [place], [address], ([facility] Street [place], [address] [place] [address] complaint) [address], [address] [place], [place], [place] [address], [id number], , [place], [place] [id number], [place], [address]. tel:+ [place]. tel:[phone] tel:[phone] Init Hosp-da MNGI [place] No Rima MOISE Referring E&m Mod Digestive [facility] Information 0 Viki. 3[address] P rovider: [facility], Hosp 1 [place] Vikiamanda Post r [facility] MD Lyric SWEET, 3001 [address], [address], [facility] s, [place], , [place], [address], [id number], [id number], [place], [place]. [place], tel:+ tel:[phone]. [phone] tel:[phone] [facility] [place] Achalasia Rima MOISE Digestive [facility] 0- Viki. 3001 Health PA, Hosp 1 [facility], [address], [address], [place] s, [place], , [place], [id number], [id number], [place]. tel: tel:[phone] Offic/outpt FACUNDO Merino GI Achalasia Apr- Lisa COTE Refolesya petersening E&m [facility] Symptoms 8-201 [address]. [address] Provid er: [facility] PA, or [address] [place] [address] NE, Andreea MOISE [address], (chief [address], L, 1400 [place] complaint) [place] Malachi son [place], [place], , [place], Rd, [id number], [id number], [facility] [place], [address]. tel: tel: tel: [phone] Family History Family Member Type Diagnosis Age [...] Registry Payers Payer name Insurance type Covered alliance party ID Authorization(s ) [employer] Medicare Advantage [id number] [facility] [id number] Social History Type Description Quantity Date Captured [...] worsened. He has undergone workup at the [facility] and reports undergoing a n EGD in February and then having a repeat EGD with pneumatic balloon dilation about 3 wee ks ago at their facility. Since the balloon di lation, he was admitted at [facility] and due to complaints of dysphagia at [...] Effective Dates (start - stop) Status M embers No Information
== END 2022-05-13 10:35 | disposition home or self-care (01) ==
PROVIDERS: PCP Family Medicine; Visit Provider Family Medicine
DX: K92.0 Hematemesis (principal)
CPT/HCPCS: A0425; A0426

== ENCOUNTER 2022-06-05 18:31 | Emergency (ER) | payer MEDICARE, OTHER, SELFPAY ==
[2022-06-05] VITALS (12 sets, daily range): BP systolic 107–139; BP diastolic 65–89; PULSE 55–107; RESP 16; TEMP 36.3; O2SAT 95–100; BMI 23.9
--- NOTE | 2022-06-05 19:17 | ED.GENADULT ---
HPI - General Adult General Time Seen by Provider: 19:18 Date Seen: 06/05/22 Chief complaint: Nausea/Vomiting Stated complaint: VOMITING Time Seen by Provider: 06/05/22 18:43 Source: patient, RN notes reviewed and old records reviewed Mode of arrival: ambulatory Limitations: no limitations History of Present Illness HPI narrative: Georges is an 81-year-old male with end-stage renal disease on peritoneal dialysis coming in with bloody emesis. He started throwing up blood around midnight last night. They feel like he maybe has thrown up an emesis bags worth of blood. He denies any active pain but is feeling lightheaded and dizzy. I had transferred him to [facility] with an upper GI bleed in November of this year, he was most recently transferred to [facility] in [place] on May 13. Patient was on Carafate in the thought that this was healing his esophagus, was diagnosed with esophageal ulcers per his . Patient does not want to go back to [facility] if he does not have to his he knows they do not do dialysis there. They are scheduled to follow-up with the GI doctor that they saw and go over biopsies this coming week per his . He is had no fevers or chills. He is not having any pain anywhere. He had been on Coumadin but apparently is not on this. We will confirm with an INR. He was anticoagulated for underlying atrial fibrillation. He has a known history of achalasia and has had treatments and scoping done for this at [facility]. He earlier this spring was hospitalized at [facility] for hydropneumothorax. Related Data Home Medications Medication Instructions Recorded Confirmed allopurinol 100 mg tablet 100 mg DAILY 03/31/22 calcitriol 0.25 mcg capsule 0.25 mcg 03/31/22 docusate sodium 100 mg tablet 100 mg PO HS 03/31/22 06/05/22 metoprolol tartrate 25 mg tablet 25 mg BID 03/31/22 omeprazole 20 mg capsule,delayed mg 03/31/22 release torsemide 20 mg tablet 20 mg DAILY 03/31/22 vitamin B complex-vitamin C 100 1 tab Q24H 03/31/22 mg-folic acid 1 mg tablet (Dialyvite) warfarin 2 mg tablet mg 03/31/22 pantoprazole 40 mg tablet,delayed 40 mg PO DAILY 06/05/22 06/05/22 release Allergies Allergy/AdvReac Type Severity Reaction Status Date / Time carbamazepine [From Tegretol] Allergy Verified 06/05/22 18:53 city water Allergy Mild Hives Uncoded 06/05/22 18:53 Review of Systems Status of ROS: Reports: 10 or more systems reviewed and unremarkable except as noted in History and below [facility] Medical History Achalasia Afib Anxiety Gout Heart failure History of intracranial abscess HTN (hypertension) Hypothyroidism ELENI (obstructive sleep apnea) Osteopenia Social History Smoking Status: Former smoker What tobacco products do you use: cigarettes Smoking quit date/years: >15 years ago Do you use any of these nicotine containing products: None Second hand tobacco smoke exposure: No How often do you have a drink containing alcohol: never How often do you have six or more drinks on one occasion: Never AUDIT-C Alcohol total score: 0 Non-prescribed substance use: denies use Exam Const: Vital Signs, click to edit/add: Vital Signs - 24 hr 06/05/22 18:47 06/05/22 19:30 06/05/22 19:22 Temperature 97.3 F L Pulse Rate Pulse Rate [Right Pulse Oximeter] 107 H Respiratory Rate 16 Blood Pressure 107/71 Blood Pressure [Ri ght Upper Arm] 107/68 Pulse Oximetry 95 100 99 Oxygen Delivery Me thod Room Air 06/05/22 19:23 06/05/22 19:30 06/05/22 19:32 Temperature Pulse Rate 84 90 90 Pulse Rate [Right Pulse Oximeter] Respiratory Rate Blood Pressure 128/74 Blood Pressure [Ri ght Upper Arm] Pulse Oximetry 96 99 100 Oxygen Delivery Me thod 06/05/22 20:00 06/05/22 20:03 06/05/22 20:04 Temperature Pulse Rate 91 Pulse Rate [Right Pulse Oximeter] Respiratory Rate Blood Pressure 139/89 Blood Pressure [Ri ght Upper Arm] Pulse Oximetry 99 99 99 Oxygen Delivery Me thod 06/05/22 20:30 06/05/22 20:32 06/05/22 21:00 Temperature Pulse Rate 55 L 95 Pulse Rate [Right Pulse Oximeter] Respiratory Rate Blood Pressure 127/69 Blood Pressure [Ri ght Upper Arm] Pulse Oximetry 98 100 99 Oxygen Delivery Me thod 06/05/22 21:02 Temperature Pulse Rate 94 Pulse Rate [Right Pulse Oximeter] Respiratory Rate Blood Pressure 119/65 Blood Pressure [Ri [facility] Upper Arm] Pulse Oximetry 98 Oxygen Delivery Me thod Documenting provider has reviewed patient's vital signs: yes Common normals: no apparent distress, oriented x3, no limitations and alert General appearance: cooperative, comfortable and frail appearing Nutritional appearance: cachectic HENMT: Common normals: normocephalic, head/scalp atraumatic, hearing grossly normal bilaterally, external nose normal, nasal mucous membranes and turbinates normal and moist oral mucous membranes (Has some dried blood along the corners of his mouth) Head and scalp: normocephalic and atraumatic Nose: external nose normal and nasal mucous membranes and turbinates normal Eye: Common normals: PERRL, EOMs intact bilaterally, conjunctivae normal and no scleral icterus Conjunctiva: conjunctiva(e) normal Pupil: PERRL Neck & C-Spine: Common normals: full ROM, no lymphadenopathy, supple, no meningeal signs, no JVD and thyroid normal Thyroid: thyroid normal Resp: Common normals: normal respiratory effort, no retractions, no use of accessory muscles and clear to auscultation bilaterally Auscultation: clear to auscultation bilaterally Cardio: Common normals: no JVD, regular rate, regular rhythm, S1 normal heart sound, S2 normal heart sound, no gallops and no clicks Rate: regular rate Rhythm: regular rhythm Heart sounds: S1 normal, S2 normal and murmur GI: Common normals: Normal to inspection, nondistended, normoactive bowel sounds present, soft to palpation, non-tender, no hepatosplenomegaly and no masses Palpation: soft and no hepatosplenomegaly Neuro: Common normals: oriented x3 Sensorium/orientation: alert Meningeal signs: no meningeal signs Course Course Hospital Course: Nursing staff is appropriately placed an IV and drawn blood on arrival. Will have him on cardiac monitoring and pulse oximetry. We will get a type and screen. I have ordered 40 mg IV Protonix and do see that he has been on daily Protonix. Will give him a 250 mL fluid bolus. Need to be extremely careful with him due to his dialysis state. We will need to be looking for definitive placement for him as we do not do peritoneal dialysis and more importantly, have no emergent GI services for his acute problem. Reevaluation(s) Reevaluation #1: Have reviewed with them that there are no facilities within [facility] that have capacity for his current issues. He has not had significant ongoing bleeding, vitals have stabilized and hemoglobin is current really quite good. We will continue to try to contact facilities, continue to watch him closely. His blood pressure and pulse have certainly stabilized with just a small amount of fluids. Time: 20:44 Reevaluation #2: Nursing staff had also tried [facility], could not even get through to the phone on [facility] at this time, specifically called [facility] in [place] which was a no. [facility]'s surprisingly called back and stated that they would take the patient in the ER. Dr. Phillips was exceptbrianna MOISE. Time: 21:11 Vital Signs Vital signs: Initial Vital Signs Temperature 97.3 F L 06/05/22 18:47 Temperature Source Temporal Artery Scan 06/05/22 18:47 Pulse Rate 107 H 06/05/22 18:47 Respiratory Rate 16 06/05/22 18:47 Blood Pressure 107/68 06/05/22 18:47 Blood Pressure Mean 81 06/05/22 18:47 Blood Pressure Position Sitting 06/05/22 18:47 Pulse Oximetry 95 06/05/22 18:47 Oxygen Delivery Method 06/05/22 18:47 Vital Signs Temperature 97.3 F L 06/05/22 18:47 Pulse Rate 107 H 06/05/22 18:47 Respiratory Rate 16 06/05/22 18:47 Blood Pressure 107/68 06/05/22 18:47 Pulse Oximetry 95 06/05/22 18:47 Oxygen Delivery Method 06/05/22 18:47 Temperature 97.3 F L 06/05/22 18:47 Pulse Rate 94 06/05/22 21:02 Respiratory Rate 16 06/05/22 18:47 Blood Pressure 119/65 06/05/22 21:02 Pulse Oximetry 98 06/05/22 21:02 Oxygen Delivery Method 06/05/22 18:47 Medical Decision Making Lab Data Lab results reviewed: Yes I reviewed the patient's lab results Labs: Lab Results 06/05/22 06/05/22 06/05/22 Range/Units 19:16 19:16 19:16 WBC 8.48 (4.50-11.00) K/uL RBC 4.38 (4.30-5.90) m/uL Hgb 13.8 (13.5-17.5) gm/dL Hct 43.1 (37.0-53.0) % MCV 98 (80-100) fL MCH 32 (26-34) pg MCHC 32 (32-36) gm/dL RDW Coeff of Cintia 14.3 (11.5-15.5) % Plt Count 169 (140-440) K/uL Neut % (Auto) 92.1 H (42.0-72.0) % Lymph % (Auto) 4.1 L (20-44) % [place] % (Auto) 3.5 (0.0-11.0) % Eos % (Auto) 0.1 (0.0-7.0) % Baso % (Auto) 0.1 (0.0-3.0) % Neut # (Auto) 7.80 H (1.7-7.0) K/uL Lymph # (Auto) 0.30 L (0.90-2.90) K/uL [place] # (Auto) 0.30 (0.00-0.90) K/UL Eos # (Auto) 0.01 (0.00-0.50) K/uL Baso # (Auto) 0.01 (0.00-0.30) K/uL Abs Immat Gran (auto) 0.01 (0.00-0.30) K/uL INR (0.91-1.10) Sodium 140 (135-149) mmol/L Potassium 3.9 (3.6-5.1) mmol/L Chloride 97 (96-114) mmol/L Carbon Dioxide 35 H (20-32) mmol/L BUN 35 H (7-30) mg/dL Creatinine 3.7 H (0.5-1.5) mg/dL Estimated Creat Clear 15.41 Estimated GFR 16 ml/min Glucose 153 H (60-115) mg/dL Lactate (0.5-1.9) mmol/L Calcium 9.1 (8.4-10.6) mg/dL Total Bilirubin 0.5 (0.1-1.5) mg/dL AST 27 (12-35) U/L ALT 15 (4-50) U/L Alkaline Phosphatase 223 H (40-150) U/L Total Protein 6.9 (6.0-8.3) g/dL Albumin 3.7 (3.3-5.0) g/dL SARS-CoV-2 (PCR) (Negative) Blood Type O Positive Antibody Screen NEGATIVE 06/05/22 06/05/22 06/05/22 Range/Units 19:16 19:16 19:34 WBC (4.50-11.00) K/uL RBC (4.30-5.90) m/uL Hgb (13.5-17.5) gm/dL Hct (37.0-53.0) % MCV (80-100) fL MCH (26-34) pg MCHC (32-36) gm/dL RDW Coeff of Cintia (11.5-15.5) % Plt Count (140-440) K/uL Neut % (Auto) (42.0-72.0) % Lymph % (Auto) (20-44) % [place] % (Auto) (0.0-11.0) % Eos % (Auto) (0.0-7.0) % Baso % (Auto) (0.0-3.0) % Neut # (Auto) (1.7-7.0) K/uL Lymph # (Auto) (0.90-2.90) K/uL [place] # (Auto) (0.00-0.90) K/UL Eos # (Auto) (0.00-0.50) K/uL Baso # (Auto) (0.00-0.30) K/uL Abs Immat Gran (auto) (0.00-0.30) K/uL INR 1.05 (0.91-1.10) Sodium (135-149) mmol/L Potassium (3.6-5.1) mmol/L Chloride (96-114) mmol/L Carbon Dioxide (20-32) mmol/L BUN (7-30) mg/dL Creatinine (0.5-1.5) mg/dL Estimated Creat Clear Estimated GFR ml/min Glucose (60-115) mg/dL Lactate 1.8 (0.5-1.9) mmol/L Calcium (8.4-10.6) mg/dL Total Bilirubin (0.1-1.5) mg/dL AST (12-35) U/L ALT (4-50) U/L Alkaline Phosphatase (40-150) U/L Total Protein (6.0-8.3) g/dL Albumin (3.3-5.0) g/dL SARS-CoV-2 (PCR) Negative SARS-CoV-2 (Negative) Blood Type Antibody Screen ECG Data Attestation: I personally reviewed and interpreted this ECG as follows: (Significant artifact, does appear to be in sinus rhythm with first-degree AV block. Rate is 84 beats per minute.) Prior ECG tracings: not available for review Critical Care Time Critical Care Time Critical Care Time: No Discharge Plan Discharge Clinical Impression: Esophageal ulcer, Peritoneal dialysis status, Hematemesis Patient Disposition: [facility] Discharge Location: [facility] Condition: Unchanged Prescriptions: No Action torsemide 20 mg tablet 20 mg DAILY Label Comments: Take 1 tablet by mouth once a day allopurinol 100 mg tablet 100 mg DAILY warfarin 2 mg tablet omeprazole 20 mg capsule,delayed release(DR/EC) calcitriol 0.25 mcg capsule 0.25 mcg Label Comments: TAKE 1 CAPSULE BY MOUTH THREE DAYS (TIMES) A WEEK MWF docusate sodium 100 mg tablet 100 mg PO HS Label Comments: Take 1 tablet by mouth twice a day as needed - for constipation metoprolol tartrate 25 mg tablet 25 mg BID Dialyvite 100-1 mg tablet 1 tab Q24H Label Comments: TAKE 1 TABLET BY MOUTH DAILY WITH DINNER pantoprazole 40 mg tablet,delayed release (DR/EC) 40 mg PO DAILY Follow Up/Referrals: Kush Doran MD [Primary Care Provider] - Stand Alone Forms: [employer] Info Instructions
[2022-06-05 19:31] LABS: Lactate* 1.8 mmol/L (0.5-1.9)
[2022-06-05 19:33] LABS: Basophils Absolute Auto 0.01 K/uL (0.00-0.30); Basophils Percent Auto 0.1 % (0.0-3.0); Eosinophils Absolute Auto 0.01 K/uL (0.00-0.50); Eosinophils Percent Auto 0.1 % (0.0-7.0); Hematocrit 43.1 % (37.0-53.0); Hemoglobin* 13.8 gm/dL (13.5-17.5); Immature Granulocytes Abs Auto 0.01 K/uL (0.00-0.30); Lymphocytes Percent Auto 4.1 % (20-44); Mean Corpuscular HGB Conc 32 gm/dL (32-36); Mean Corpuscular Hemoglobin 32 pg (26-34); Mean Corpuscular Volume 98 fL (80-100); Monocytes Percent Auto 3.5 % (0.0-11.0); Neutrophils Percent Auto 92.1 % (42.0-72.0); Platelet Count* 169 K/uL (140-440); RDW Coefficient of Variation % 14.3 % (11.5-15.5); Red Blood Count 4.38 m/uL (4.30-5.90); White Blood Count* 8.48 K/uL (4.50-11.00)
[2022-06-05 19:35] LABS: Slide Review Reflex No
[2022-06-05 19:42] LABS: Albumin* 3.7 g/dL (3.3-5.0); Chloride* 97 mmol/L (96-114); Potassium* 3.9 mmol/L (3.6-5.1); Sodium* 140 mmol/L (135-149)
[2022-06-05 19:43] LABS: INR 1.05 (0.91-1.10); Prothrombin Time 14.1 Seconds
[2022-06-05 19:44] LABS: Creatinine* 3.7 mg/dL (0.5-1.5); Est. Creatinine Clearance* 15.41; Estimated Glomerular Filt Rate 16 ml/min
[2022-06-05 19:45] LABS: Alanine Aminotransferase* 15 U/L (4-50); Alkaline Phosphatase* 223 U/L (40-150); Aspartate Amino Transferase* 27 U/L (12-35); Bilirubin Total* 0.5 mg/dL (0.1-1.5); Blood Urea Nitrogen* 35 mg/dL (7-30); Carbon Dioxide* 35 mmol/L (20-32); Glucose* 153 mg/dL (60-115); Total Protein* 6.9 g/dL (6.0-8.3)
[2022-06-05 19:46] LABS: Calcium* 9.1 mg/dL (8.4-10.6)
[2022-06-05] MEDS: PANTOPRAZOLE SODIUM 40 MG INJ IVP (19:50)
[2022-06-05] MEDS: 0.9 % SODIUM CHLORIDE 250 ml 250 ML IV (19:50)
[2022-06-05 20:12] LABS: SARS PCR* Negative SARS-CoV-2 (Negative)
--- NOTE | 2022-06-05 21:16 | ED.NURSE ---
accept to [facility] by [facility], transport called for.
--- NOTE | 2022-06-05 21:31 | ED.NURSE ---
EMS arrived, report given.
== END 2022-06-05 21:34 | disposition short-term general hospital (02) ==
PROVIDERS: Emergency Provider Family Medicine; PCP Family Medicine
DX: K22.10 Ulcer of esophagus without bleeding (principal); K92.0 Hematemesis; Z99.2 Dependence on renal dialysis
CPT/HCPCS: 36415; 80053; 83605; 85025; 85610; 86850; 86900; 86901; 87635; 93005; 94761; 96374; 99284; 99285; C9113; J7050

== ENCOUNTER 2022-06-05 21:24 | Outpatient (CLI) | payer MEDICARE, OTHER, SELFPAY ==
--- OUTSIDE RECORDS SUMMARY | 2022-07-22 10:57 | XMS_ITS | Encounter Summary ---
:1940 Author Organization [facility] Address [address] [place] [address] Support Name Relationship Address Phone SHAYY CARMONA Unavailable [address] [place] [address] SHAYY CARMONA Unavailable [address] [facility] [place] [address] Insurance Providers: All historical and current Section [...] MEDICARE MEDICARE PART Nov 19, PART A [id number] Sandhya CARMONA (WNR) (M) A 2006 97A [phone] [place] MED[place] MEDICARE PART Nov 19, PART B [id number] Sandhya CARMONA (WNR) (M) B 2006 97A [phone] [place] Selected Encounter This section includes the information on record at [place] for the Encounter. Date/Time Encounter Type Encounter Reason Provider Source Description Dec 03, 2021 11:02 Outpatient ADMIN PAT ACTIVTIES PAUL CASON AM Encounter (MASNONCT) IHE Encounter Template Text not used by [place] Plan of Treatment: Future Appointments (+ 6 months) and Future Tests (+/- 45 days) The Plan of Treatment section includes future care activities for the patient from all [place] treatmentfacilities. This section includes future appointments and future orders which are active, pending orscheduled.Future Appointments This section includes appointments that were scheduled to occur 6 months from the date of the Encounter, up to a maximum of 20 appointments. The data comes from all [place] treatment facilities. Appointment Date/Time Appointment Type Appointment Facili ty Name Dec 10, 2021 07:47 PM AMBULATORY - NONE [facility] Feb 10, 2022 05:44 PM AMBULATORY - NONE [facility] Apr 02, 2022 03:23 PM AMBULATORY - NONE [facility] Apr 14, 2022 09:01 PM AMBULATORY - NONE [facility] Apr 16, 2022 02:34 PM AMBULATORY - NONE [facility] May 14, 2022 02:24 PM AMBULATORY - NONE [facility] May 17, 2022 08:28 AM AMBULATORY - NONE [facility] May 30, 2022 02:00 PM AMBULATORY - NONE [facility] Encounter Notes: All associated encounter notes This section contains the clinical notes associated to the Encounter. Date/Time Encounter Note(s) Provider Source 2021 03:52 PM NONVA NOTE: SÁNCHEZ REYES [facility] LOCAL TITLE: COMMUNITY CARE-GRIS SELF [...] of Contact: Phone Centralized Call Center Notified [facility] Name: Hospital: [facility] Address: City: [place] State: [place] Zip Code: Phone : Community Facility Point of Contact: Name: Phone: Chief complaint: pleural empyema Primary Diagnosis: Disposition Admitted Route of Admission: Direct Admit Date of Admission: Nov Admitting Diagnosis: Pleural Empyema Community Care Provider: Confirm Level of Care: heidi/ SÁNCHEZ REYES RN [facility] UTILIZATION MANAGEMENT Signed: 12/13/2021 15:56 12/13/2021 ADDENDUM STATUS: COMPLETED DISCHARGE NOTE CLINICAL CARE COORDINATION INFORMATION Hospital Name: [facility] Admit date: 12-02-21 Discharge date: 12-08-21 [...] Home Information obtained from hospital records in [facility] under Community Health Summaries and Documents sent to [facility] to be scann ed into [facility] electronic medical record in [facility] under Documents. Please review records when imported for any n eeded follow up and place appropriate specialty consults. /paola/ SÁNCHEZ REYES RN [facility] UTILIZATION MANAGEMENT Signed: 12/13/2021 16:01 12/13/2021 ADDENDUM STATUS: COMPLETED Requested eligibility to mail a packet of inform ation to regarding VA benefits. /paola/ SÁNCHEZ REYES RN [facility] UTILIZATION MANAGEMENT Signed: 12/13/2021 16:02 12/14/2021 ADDENDUM STATUS: COMPLETED NOTIFICATION ID: [id number] STATUS: Notify - Approved for 1703 /paola/ JEANIE BELLA MULTIMEDIA AUTHORING SPECIALIST Signed: 12/14/2021 16:25 Dec 01, 2021 11:02 AM NONVA NOTE: HARPER LOONEY [facility] LOCAL TITLE: COMMUNITY CARE-GRIS SELF PRESENTIN G CARE COORD PLAN STANDARD TITLE: NONVA NOTE DATE OF NOTE: DEC 01, 2021@11:02 ENTRY DATE: DEC 03, 2021@11:03:03 AUTHOR: HARPER LOONEY EXP COSIGNER: URGENCY: STATUS: COMPLETED COMMUNITY CARE-GRIS SELF PRESENTING CARE CO ORD PLAN NOTE Has ADDENDA Emergency Notification Intake Date Presenting to the Facility: Nov Method of Contact: Notified from [employer] worklist Notification ID: [id number] [facility] Referral #: [facility] Name: Hospital: [facility] Address: [address] City: [place] State: [place] Zip Code: Phone : Community Facility Point [...] Signed: 12/06/2021 12:58 12/09/2021 ADDENDUM STATUS: COMPLETED [facility] 12/01/21 syncope Per note accepted and transferrd to [facility], does not state which [facility] Information obtained from facility via f ax and sent to [facility] to be scanned into [facility] electronic medical record in [facility] under Documents. /paola/ PAUL CASON RN Utilization Management Signed: 12/09/2021 11:07 Receipt Acknowledged By: * AWAITING SIGNATURE * SÁNCHEZ REYES
--- OUTSIDE RECORDS SUMMARY | 2022-07-22 10:57 | XMS_ITS | Encounter Summary ---
:1940 Author Organization [facility] Address [address] [place] [address] Support Name Relationship Address Phone SHAYY CARMONA Unavailable [address] [place] [address] SHAYY CARMONA Unavailable [address] [facility] [place] [address] Insurance Providers: All historical and current Section [...] MEDICARE MEDICARE PART Nov 19, PART A [id number] Sandhya CARMONA ATIENT (WNR) (M) A 2006 97A [phone] [place] MED[place] MEDICARE PART Nov 19, PART B [id number] MATHEWT P ATIENT (WNR) (M) B 2006 97A [phone] [place] Selected Encounter This section includes the information on record at [place] for the Encounter. Date/Time Encounter Type Encounter Reason Provider Source Description Feb 10, 2022 05:44 Outpatient ADMIN PAT ACTIVTIES SÁNCHEZ REYES PM Encounter (MASNONCT) L IHE Encounter Template Text not used by CT Plan of Treatment: Future Appointments (+ 6 months) and Future Tests (+/- 45 days) The Plan of Treatment section includes future care activities for the patient from all [place] treatmentfacilities. This section includes future appointments and future orders which are active, pending orscheduled.Future Appointments This section includes appointments that were scheduled to occur 6 months from the date of the Encounter, up to a maximum of 20 appointments. The data comes from all [place] treatment facilities. Appointment Date/Time Appointment Type Appointment Facili ty Name Apr 02, 2022 03:23 PM AMBULATORY - NONE [facility] Apr 14, 2022 09:01 PM AMBULATORY - NONE [facility] Apr 16, 2022 02:34 PM AMBULATORY - NONE [facility] May 14, 2022 02:24 PM AMBULATORY - NONE [facility] May 17, 2022 08:28 AM AMBULATORY - NONE [facility] May 30, 2022 02:00 PM AMBULATORY - NONE [facility] Jun 06, 2022 10:14 PM AMBULATORY - NONE [facility] Jun 15, 2022 10:02 AM AMBULATORY - NONE [facility] Encounter Notes: All associated encounter notes This section contains the clinical notes associated to the Encounter. Date/Time Encounter Note(s) Provider Source Dec 09, 2021 05:53 PM NONVA NOTE: JEANIE BELLA [facility] LOCAL TITLE: COMMUNITY CARE-GRIS SELF PRESENTIN G CARE COORD PLAN STANDARD TITLE: NONVA NOTE DATE OF NOTE: DEC 09, 2021@17:53 ENTRY DATE: FEB 10, 2022@17:53:26 AUTHOR: JEANIE BELLA EXP COSIGNER: URGENCY: STATUS: COMPLETED COMMUNITY CARE-GRIS SELF PRESENTING CARE CO ORD PLAN NOTE Has ADDENDA Emergency Notification Intake Date Presenting to the Facility: Nov Method of Contact: Notified from [employer] worklist Notification ID: [id number] [facility] Referral #: [facility] Name: Hospital: [facility] Address: [address] [place] [address] City: [place] State: [place] Zip Code: [address] Phone : [facility] Hospital Facility Point of Contact: Name: Chief complaint: GI BLEED Primary Diagnosis: Disposition Admitted Route of Admission: Other: Date of Admission: Nov Admitting Diagnosis: GI BLEED [facility] Provider: Confirm Level of Care: /paola/ JEANIE BELLA CERAMIC TILE INSTALLER Signed: 02/10/2022 17:54 Receipt Acknowledged By: 02/15/2022 08:47 /paola/ SÁNCHEZ REYES RN [facility] UTILIZATION MANAGEMENT 02/15/2022 ADDENDUM STATUS: COMPLETED Duplicate entry /tahira REYES RN [facility] UTILIZATION MANAGEMENT Signed: 02/15/2022 08:48
--- OUTSIDE RECORDS SUMMARY | 2022-07-22 10:57 | XMS_ITS | Encounter Summary ---
:1940 Author Organization [facility] Address [address] [place] [address] Support Name Relationship Address Phone SHAYY CARMONA Unavailable [address] [place] [address] SHAYY CARMONA Unavailable [address] [place] [address] Insurance Providers: All historical and current Section [...] MEDICARE MEDICARE PART Nov 19, PART A [id number] 800 Sandhya CARMONA (WNR) (M) A 2006 97A [id number] [place] MEDIC[place] MEDICARE PART Nov 19, PART B [id number] 800 Sandhya CARMONA (WNR) (M) B 2006 97A [phone] [place] Selected Encounter This section includes the information on record at [place] for the Encounter. Date/Time Encounter Type Encounter Reason Provider Source Description Dec 10, 2021 07:47 Outpatient ADMIN PAT ACTIVTIES PAUL CASON PM Encounter (MASNONCT) IHE Encounter Template Text not used by [place] Plan of Treatment: Future Appointments (+ 6 months) and Future Tests (+/- 45 days) The Plan of Treatment section includes future care activities for the patient from all [place] treatmentfacilities. This section includes future appointments and future orders which are active, pending orscheduled.Future Appointments This section includes appointments that were scheduled to occur 6 months from the date of the Encounter, up to a maximum of 20 appointments. The data comes from all [place] treatment facilities. Appointment Date/Time Appointment Type Appointment Facili ty Name Feb 10, 2022 05:44 PM AMBULATORY - NONE [facility] Apr 02, 2022 03:23 PM AMBULATORY - NONE [facility] Apr 14, 2022 09:01 PM AMBULATORY - NONE [facility] Apr 16, 2022 02:34 PM AMBULATORY - NONE [facility] May 14, 2022 02:24 PM AMBULATORY - NONE [facility] May 17, 2022 08:28 AM AMBULATORY - NONE [facility] May 30, 2022 02:00 PM AMBULATORY - NONE [facility] Jun 06, 2022 10:14 PM AMBULATORY - NONE [facility] Encounter Notes: All associated encounter notes This section contains the clinical notes associated to the Encounter. Date/Time Encounter Note(s) Provider Source Dec 09, 2021 07:51 PM NONVA NOTE: JEANIE BELLA [facility] LOCAL TITLE: COMMUNITY CARE-GRIS SELF PRESENTIN G CARE COORD PLAN STANDARD TITLE: NONVA NOTE DATE OF NOTE: DEC 09, 2021@19:51 ENTRY DATE: DEC 10, 2021@19:51:15 AUTHOR: JEANIE BELLA EXP COSIGNER: URGENCY: STATUS: COMPLETED COMMUNITY CARE-GRIS SELF PRESENTING CARE CO ORD PLAN NOTE Has ADDENDA Emergency Notification Intake Date Presenting to the Facility: Nov Method of Contact: Notified from [employer] worklist Notification ID: [id number] [facility] Referral #: [facility] Name: Hospital[facility] Address: [address] City: [place] State: [place] Zip Code: [address] Phone : [facility] Point of Contact: Name: Latoya Joe Chief complaint: GI Bleed Primary Diagnosis: Disposition Discharged Date of discharge: Nov Discharge to home /paola/ JEANIE BELLA JOY OPERATOR HELPER Signed: 12/10/2021 19:53 Receipt Acknowledged By: 12/13/2021 11:28 /paola/ PAUL CASON RN Utilization Management 02/02/2022 ADDENDUM STATUS: COMPLETED Faxed for records. /tahira CASON RN Utilization Management Signed: 02/02/2022 08:23 02/03/2022 ADDENDUM STATUS: COMPLETED [place] 12/09/21 dx gi bleed note states transfererd to [facility] to [facility] for import Has packet request within 6 months for [place] [facility] Care team /paola/ PAUL CASON RN Utilization Management Signed: 02/03/2022 13:21 Receipt Acknowledged By: 02/08/2022 13:43 /paola/ SÁNCHEZ REYES RN [facility] UTILIZATION MANAGEMENT 02/08/2022 ADDENDUM STATUS: COMPLETED DISCHARGE NOTE CLINICAL CARE COORDINATION INFORMATION Hospital Name: [facility] Admit date: 12-09-21 Discharge date: 12-11-21 Level [...] Discharge Disposition: Home DC Summary sent to [facility] for scanning Requested eligibility to mail a packet of inform ation to regarding VA benefits. /paola/ SÁNCHEZ REYES RN [facility] UTILIZATION MANAGEMENT Signed: 02/08/2022 13:53 02/08/2022 ADDENDUM STATUS: COMPLETED Updated ECR regarding transfer. /paola/ SÁNCHEZ REYES RN [facility] UTILIZATION MANAGEMENT Signed: 02/08/2022 13:53
--- OUTSIDE RECORDS SUMMARY | 2022-07-22 10:57 | XMS_ITS | Continuity of Care Document ---
:1940 Author Organization [facility] Care Team Providers Name Role Phone [facility] Unavailable Unavailable Problems Combined list of problems from Department of Defense and Veterans Affairs facilities. It does not include entries that were removed or entered in error. 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 Mik Doran, [place] [address]. [phone] . Congestive heart Active Condition [place] failure [facility] Dysphagia Active Condition [facility] Empyema Active Condition [facility] S [facility] End-stage renal Active Condition [place] disease [facility] Esophageal varices [facility] Ex-tobacco user Active Condition [facility] Gout (SCT [id number]) Active Condition [facility] Hemoptysis Active Condition [facility] Hiatal hernia [facility] History of polyp of Active Condition [place] colon [facility] Impaired hearing Active Condition [place] [facility] Leukopenia Active Condition [facility] Long-term current Active Condition Jun 10 [place] use of 2021 Entered [facility] anticoagulant By: MARILYN ROBINS Comment: Indication: AF. Malnutrition Active Condition [place] [facility] Osteopenia Active Condition Jun 10, [place] 2021 Entered [facility] By: MARILYN ROBINS Comment: 05.31.2022 DXA. 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 Medications provided include 1) outpatient medications from the last 15 months, and 2) patient-reported medications. Medication Details Route Status Patient Prescription Prescription Last Ordering Order Source Instructions Expires Number Dispense Provider Date Date ALLOPURINOL TAKE ONE ORALLY ACTIVE JULIENNE, 05/30 / [place] 100MG TAB TABLET [facility] 2021 [place] V A BY MOUTH HCS EVERY DAY CALCITRIOL TAKE 1 ORALLY ACTIVE JULIENNE, 12/02/ [place] 0.25MCG CAP CAPSULE [facility] 2021 ANTONIO S [facility] BY [facility] DIALYVITE TAKE ONE ORALLY ACTIVE JULIENNE, 03/19/ [place] TAB TABLET [facility] 2021 [place] [facility] AT BEDTIME DOCUSATE NA TAKE 1 ORALLY ACTIVE JULIENNE, 06/10/ [place] 100MG CAP CAPSULE [facility] 2021 [place] [facility] PRN METOPROLOL TAKE ORALLY ACTIVE JULIENNE, 03/27/ [place] TARTRATE ONE-HALF [facility] 2021 [place] VA 50MG TAB TABLET HCS BY MOUTH TWICE A DAY ONDANSETRON TAKE ONE ORALLY ACTIVE JULIENNE, 06/07 / [place] HCL 4MG TAB TABLET [facility] 2021 [place] [facility] EVERY 6 HOURS NEEDED PANTOPRAZOL TAKE ONE ORALLY ACTIVE JULIENNE, 05/14 / [place] E NA 40MG TABLET 2021 [place] V A TAB,EC BY MOUTH HCS EVERY DAY SUCRALFATE TAKE 2 ORALLY ACTIVE JULIENNE, 06/07/ [place] 500MG/5ML TEASPOON [facility] 2021 [place] VA SUSP,ORAL SFUL BY HCS MOUTH EVERY 6 HOURS TORSEMIDE TAKE ONE ORALLY ACTIVE JULIENNE, 12/10/ [place] 20MG TAB TABLET [facility] 2021 [place] [facility] EVERY [...] atus Comments Source Given By Number Code 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 COVID-19 2 complet PFR; [place] (Acceleforce), 2020 ed [id number]; [place] VA MRNA, LNP-S, 02 HCS PF, 30 1 MCG/0.3 ML DOSE COVID-19 1 complet PFR; [place] (Acceleforce), 2020 ed [id number]; [place] MRNA, LNP-S, HCS PF, 30 1 MCG/0.3 [...] Number For Provider Date Date Visit Outpatient [id number] 05/14 [place] Encounter [id number] [facility] Outpatient [id number] Sandhya CASON 05/31 [place] Encounter [id number] ERR [facility] Outpatient [id number] Sandhya CASON 12/03 [place] Encounter [id number] ERR [facility] Outpatient [id number] Sandhya CASON 12/10 [place] Encounter [id number] ERR IS [facility] Outpatient [id number] ARNEL REYES 02/10 [place] Encounter [id number] REBECCA L ANTONIO S [facility] Outpatient [id number] 02/28 [place] Encounter [id number] [place] [facility] Outpatient [id number] 04/02 [place] Encounter [id number] [facility] Outpatient [id number] SA SANDY 04/14 [place] Encounter [id number] R [facility] Outpatient [id number] SANDY 04/16 [place] Encounter [id number] RA R /2021 [facility] Outpatient [id number] SANDY, 05/14 [place] Encounter [id number] RA R /2021 [facility] Outpatient [id number] S[place]Y, 05/17 [place] Encounter [id number] RA R /2021 [facility] Outpatient [id number] SANDY, 06/06 [place] Encounter [id number] RA R /2021 [facility] Outpatient [id number] [place] Encounter [id number] /2021 [facility] Outpatient [id number] ARNEL REYES 06/15 [place] Encounter [id number] [facility] Outpatient [id number] 06/20 [place] Encounter [id number] /2021 [facility] Social History Combined list of available smoking, tobacco, and other social history from Department of Defense andVeterans Affairs facilities. Social History Type Response Date Comment Source This section is an empty social history section. DoD
--- OUTSIDE RECORDS SUMMARY | 2022-07-22 10:57 | XMS_ITS | Encounter Summary ---
:1940 Author Organization [facility] Address [address] [place] [address] Support Name Relationship Address Phone SHAYY CARMONA Unavailable [address] [place] [address] SHAYY CARMONA Unavailable [address] [facility] [place] [address] Insurance Providers: All historical and current Section [...] MEDICARE MEDICARE PART Nov 19, PART A [id number] 800 Sandhya CARMONA (WNR) (M) A 2006 97A [id number] [facility] MEDICARE MEDICARE PART Nov 19, PART B [id number] 800 Sandhya CARMONA (WNR) (M) B 2006 [...] 02, 2022 03:23 PM AMBULATORY - NONE [facility] Apr 14, 2022 09:01 PM AMBULATORY - NONE [facility] Apr 16, 2022 02:34 PM AMBULATORY - NONE [facility] May 14, 2022 02:24 PM AMBULATORY - NONE [facility] May 17, 2022 08:28 AM AMBULATORY - NONE [facility] May 30, 2022 02:00 PM AMBULATORY - NONE [facility] Jun 06, 2022 10:14 PM AMBULATORY - NONE [facility] Jun 15, 2022 10:02 AM AMBULATORY - NONE [facility] Encounter Notes: All associated encounter notes This section contains the clinical notes associated to the Encounter. Date/Time Encounter Note(s) Provider Source Feb 28, 2022 08:38 AM PRIMARY CARE NOTE: KAMILLA FOSTER [facility] LOCAL TITLE: PC REFERRAL TEAM NOTE STANDARD TITLE: PRIMARY CARE NOTE DATE OF NOTE: FEB 28, 2022@08:38 ENTRY DATE: FEB 28, 2022@08:39:01 AUTHOR: KAMILLA FOSTER EXP COSIGNER: URGENCY: STATUS: COMPLETED PC REFERRAL TEAM NOTE Has ADDENDA Drive time from home address to nearest [place] clinic: 51 mins to [facility] per [facility] [place] advised on the following: Authorization will 36 5 days after the first initial appointment with the non-VA Primary Care provider. One month prior to the consult expiration, if wishes to be considered for exte nsion of non-VA care, needs to contact their non-VA provider to fax a renewal r equest to the Community Care Department. If the non-VA provider reque sts equipment or refers to another provider, the VA must be notified prior to this equipment being issued or the attending any other non-VA appointments. will stay assigned to their [facility] Provider, if established. If Milton prefers to receiv e medications from VA, they will need to be written by the non-VA provider and faxed to the VA pharm acy at [phone]. If a medication is needed urgently, provide t he non-VA pharmacy with the following: RxBIN: [id number] - RxPCN: VA - RxGrp: HAC. Anticoagulants will be managed by the non-VA pro vider. If currently enrolled with the [place] anti-coagulation clinic, the [place] will be unenrolled. It will be the responsibility of the non-VA provider to shanika ck Veterans labs and dose Milton accordingly. Milton provided with [facility] public transit specialist RN ca se managers name and direct phone number. Instructed Milton to cont act the keycase assembler for any questions related to non-VA care, especially if care to an other specialist has been recommended and they are unclear if these servic es have been pre-authorized. Instructed the of [facility] hospital notification process and provided with phone number, , to call within 72 hours of presenting to an outside facility for emergency care or hospitali zation. Care team members being alerted: [facility] Provider: Dr. Escamilla [facility] content creation manager : Daniel Costa for case management and tracking purposes Milton verbalized understanding of abov e instructions and a letter with above instructions was mailed to [place]. /es/ KAMILLA FOSTER RN Referral Coordination Public Policy Mediator Signed: 02/28/2022 09:13 Receipt Acknowledged By: 02/28/2022 12:09 /es/ ZAYDA ESCAMILLA MD STAFF PHYSICIAN 03/03/2022 15:23 /es/ Daniel Costa, RN, BSN pump servicer supervisor Telegrapher Agent 03/03/2022 ADDENDUM STATUS: COMPLETED is well-insured via other source s but wanted to establish primary care through the VA. He is on hem odialysis at [facility] and gets his specialty care there. He is aware that the VA cannot appro ve any care at that [place] location. He lives within [address] [facility] and there is no hardship consult in place. /paola/ Daniel Costa, RN, BSN pump servicer supervisor Telegrapher Agent Signed: 03/03/2022 15:26
--- OUTSIDE RECORDS SUMMARY | 2022-07-22 10:57 | XMS_ITS | Encounter Summary ---
:1940 Author Organization [facility] Address [address] [place] [address] Support Name Relationship Address Phone SHAYY CARMONA Unavailable [address] [place] [address] SHAYY CARMONA Unavailable [address] [facility] [place] [address] Insurance Providers: All historical and current Section [...] MEDICARE MEDICARE PART Nov 19, PART A [id number] 800 Sandhya CARMONA (WNR) (M) A 2006 97A [phone] [facility] MEDICARE MEDICARE PART Nov 19, PART B [id number] 800 MATHEWT Ki LAYNE (WNR) (M) B 2006 97A [phone] [facility] Selected Encounter This section includes the information on record at [place] for the Encounter. Date/Time Encounter Type Encounter Reason Provider Source Description Apr 14, 2022 09:01 Outpatient ADMIN PAT ACTIVTIES LIDIA DELGADO PM Encounter (MASNONCT) IHE Encounter Template Text not used by [place] Plan of Treatment: Future Appointments (+ 6 months) and Future Tests (+/- 45 days) The Plan of Treatment section includes future care activities for the patient from all [place] treatmentfacilities. This section includes future appointments and future orders which are active, pending orscheduled.Future Appointments This section includes appointments that were scheduled to occur 6 months from the date of the Encounter, up to a maximum of 20 appointments. The data comes from all [place] treatment facilities. Appointment Date/Time Appointment Type Appointment Facili ty Name Apr 16, 2022 02:34 PM AMBULATORY - NONE [facility] May 14, 2022 02:24 PM AMBULATORY - NONE [facility] May 17, 2022 08:28 AM AMBULATORY - NONE [facility] May 30, 2022 02:00 PM AMBULATORY - NONE [facility] Jun 06, 2022 10:14 PM AMBULATORY - NONE [facility] Jun 15, 2022 10:02 AM AMBULATORY - NONE [facility] Encounter Notes: All associated encounter notes This section contains the clinical notes associated to the Encounter. Date/Time Encounter Note(s) Provider Source Apr 13, 2022 09:01 PM NONVA NOTE: HEENA CRISOSTOMO S [facility] LOCAL TITLE: COMMUNITY CARE-[facility] SELF PRESENTIN G CARE COORD PLAN STANDARD TITLE: NONVA NOTE DATE OF NOTE: APR 13, 2022@21:01 ENTRY DATE: APR 14, 2022@21:02:06 AUTHOR: HEENA CRISOSTOMO EXP COSIGNER: URGENCY: STATUS: COMPLETED COMMUNITY CARE-[facility] SELF PRESENTING CARE CO ORD PLAN NOTE Has ADDENDA Emergency Notification Intake Date Presenting to the Facility: Mar Method of Contact: Notified from [employer] worklist Notification ID: [id number] [facility] Referral #: [facility] Hospital Name: Hospital: [facility] [place], [place] Address: City: [place] State: [place] Zip Code: Phone : [facility] Facility Point of Contact: Name: Tangela Lara Chief complaint: ACHALASIA Primary Diagnosis: Disposition Discharged Date of discharge: Mar Discharge to home 04/14/2022 8:56:14 PM CDT Brie Romero ADDED ADDRESS, VET INFO PER [facility]. , [address], NETWORK DETERMINATION, PRUDENT LAYPERSON, VA AVAILABILITY. POM REVIEW /paola/ HEENA REYES, MODEL BUILDER Signed: 04/14/2022 21:03 Receipt Acknowledged By: 04/21/2022 11:12 /es/ LIDIA DELGADO RN REGISTERED NURSE 04/21/2022 ADDENDUM STATUS: COMPLETED was seen in an outside ER on: 04/13/22 No rtfield Diagnosis: Weakness, achalasia of espohagus, vom iting Transferred to [facility] Medical records received and sent to [facility] for im port. Please review records when imported for any need ed follow up. /es/ LIDIA DELGADO RN REGISTERED NURSE Signed: 04/21/2022 13:36
--- OUTSIDE RECORDS SUMMARY | 2022-07-22 10:57 | XMS_ITS | Encounter Summary ---
:[address] [facility] Address [address] [place] [address] Support Name Relationship Address Phone SHAYY CARMONA Unavailable [address] [place] [address] SHAYY CARMONA Unavailable [address] [facility] [place] [address] Insurance Providers: All historical and current Section [...] MEDICARE MEDICARE PART Nov 19, PART A [id number] 800 Sandhya CARMONA (WNR) (M) A 2006 97A [id number] [facility] MEDICARE MEDICARE PART Nov 19, PART B [id number] 800 Sandhya CARMONA (WNR) (M) B 2006 [...] 14, 2022 02:24 PM AMBULATORY - NONE [facility] May 17, 2022 08:28 AM AMBULATORY - NONE [facility] May 30, 2022 02:00 PM AMBULATORY - NONE [facility] Jun 06, 2022 10:14 PM AMBULATORY - NONE [facility] Jun 15, 2022 10:02 AM AMBULATORY - NONE [facility] Encounter Notes: All associated encounter notes [...] Facility: Mar Method of Contact: Notified from [employer] worklist Notification ID: [id number] [facility] [place] [facility] [place] [facility] [facility] Address: City: [place] State: [place] Zip Code: Phone : [facility] Facility [facility] Contact: [facility] Chief complaint: VOMITING AND DIZZINESS Primary Diagnosis: Disposition Unknown at time of intake note entry 04/16/2022 2:09:42 PM LINDENT Brandy Cobb CORECTION USED ES JLV IS DOWN 04/16/2022 2:08:49 PM KULWINDER Cobb APPROVED 1703 CHECK FOR DUPL ICATES NONE FOUND. CHECK FOR OHI,24 MONTH. USED JLV TO VERIFY ALL INFORMATION. SENT EMAIL /paola/ CLAUDIA NIÑO PEANUT SEPARATOR Signed: 04/16/2022 14:35 Receipt Acknowledged By: 04/21/2022 11:12 /paola/ LIDIA DELGADO RN REGISTERED NURSE 04/21/2022 ADDENDUM STATUS: COMPLETED Hospital Discharge note Hospital: [facility] Admit date: 04/14/22 Discharge date: 04/16/22 Discharge [...] follow up with gastroenterology Information obtained from [place] dical records received and sent to [facility] for import. Outreach packet to be sent t o as they currently do not have a PACT team assigned. /paola/ LIDIA DELGADO RN REGISTERED NURSE Signed: 04/21/2022 11:19
--- OUTSIDE RECORDS SUMMARY | 2022-07-22 10:58 | XMS_ITS | Encounter Summary ---
:1940 Author Organization [facility] Address [address] [place] [address] Support Name Relationship Address Phone SHAYY CARMONA Unavailable [address] [place] [address] SHAYY CARMONA Unavailable [address] [facility] [place] [address] Insurance Providers: All historical and current Section [...] MEDICARE MEDICARE PART Nov 19, PART A [id number] 800 Sandhya CARMONA (WNR) (M) A 2006 97A [phone] [facility] MED[facility]ARE MEDICARE PART Nov 19, PART B [id number] 800 Sandhya CARMONA (WNR) (M) B 2006 97A [phone] [facility] Selected Encounter This section includes the information on record at [place] for the Encounter. Date/Time Encounter Type Encounter Reason Provider Source Description May 17, 2022 08:28 Outpatient ADMIN PAT ACTIVTIES LIDIA DELGADO AM Encounter (ConsortiEXNONCT) IHE Encounter Template Text not used by [place] Plan of Treatment: Future Appointments (+ 6 months) and Future Tests (+/- 45 days) The Plan of Treatment section includes future care activities for the patient from all [place] treatmentfacilities. This section includes future appointments and future orders which are active, pending orscheduled.Future Appointments This section includes appointments that were scheduled to occur 6 months from the date of the Encounter, up to a maximum of 20 appointments. The data comes from all [place] treatment facilities. Appointment Date/Time Appointment Type Appointment Facili ty Name May 30, 2022 02:00 PM AMBULATORY - NONE [facility] Jun 06, 2022 10:14 PM AMBULATORY - NONE [facility] Jun 15, 2022 10:02 AM AMBULATORY - NONE [facility] Encounter Notes: All associated encounter notes This section contains the clinical notes associated to the Encounter. Date/Time Encounter Note(s) Provider Source May 13, 2022 08:29 NONVA NOTE: EUGENE CRONIN FLAVIA IS [facility] AM LOCAL TITLE: COMMUNITY CARE-GRIS SELF PRESENTIN G CARE COORD PLAN STANDARD TITLE: NONVA NOTE DATE OF NOTE: MAY 13, 2022@08:29 ENTRY DATE: MAY 17, 2022@08:29:27 AUTHOR: EUGENE CRONIN EXP COSIGNER: URGENCY: STATUS: COMPLETED COMMUNITY CARE-GRIS SELF PRESENTING CARE CO ORD PLAN NOTE Has ADDENDA Emergency Notification Intake Date Presenting to the Facility: Apr Method of Contact: Notified from [employer] Notification ID: [id number] [facility] Referral #: [facility] Name: Hospital: [facility] Address: [address] [place] [address] City: [place] State: [place] Zip Code: [address] Phone : [facility] Point of Contact: Name: DEPT Chief complaint: COFFEE GROUND EMESIS Primary Diagnosis: COFFEE GROUND EMESIS Disposition Admitted Route of Admission: Date of Admission: Apr Admitting Diagnosis: COFFEE GROUND EMESIS [facility] Provider: Confirm Level of Care: /paola/ EUGENE CRONIN MEDICAL SUPERVISOR [employer] Signed: 05/17/2022 08:31 Receipt Acknowledged By: 05/17/2022 14:00 /paola/ LIDIA DELGADO RN REGISTERED NURSE 05/17/2022 ADDENDUM STATUS: COMPLETED Hospital Discharge note Hospital: [facility] Admit date: 05/13/22 Discharge date: 05/14/22 Discharge diagnosis: Gastrointestinal hemorrhage with hematemesis (Pr imary Dx); Gastrointestinal hemorrhage, unspecified gastroi ntestinal hemorrhage type Disposition: home Follow up: PCP. Follow-up with Rosalba COPE in 1-[address] weeks [address] outpatient[address] Dr[address] Ozuna, recommend stopping coumadin for a -fib due to multiple bleeding episodes and may need to pursue other a-fib treatment options through his compound specialist/EP - - -Recommend outpatient manometry. Information obtained from tn dical records received and sent to [facility] for import. Outreach packet to be sent t o as they currently do not have a PACT team assigned. /paola/ LIDIA DELGADO RN REGISTERED NURSE Signed: 05/17/2022 14:05
--- OUTSIDE RECORDS SUMMARY | 2022-07-22 10:58 | XMS_ITS | Encounter Summary ---
:1940 Author Organization [facility] Address [address] [place] [address] Support Name Relationship Address Phone SHAYY CARMONA Unavailable [address] [place] [address] SHAYY CARMONA Unavailable [address] [place] [address] Insurance Providers: All historical and current Section Date Range: From patient's date of to the date document was created.This section includes the names of all active insurance providers for the patient. Insurance Type of Plan Start of End of Group Member Insurance Policy P atient's Provider Coverage Name Policy Policy Number ID Provider's Nkight's Relationship Coverage Coverage Telephone Name to Policy Number [place] MEDICARE MEDICARE PART Nov 19, PART A [id number] Sandhya CARMONA (WNR) (M) A 2006 97A [phone] [place] MEDICARE MEDICARE PART Nov 19, PART B [id number] MATHEWT Ki LAYNE (WNR) (M) B 2006 97A [phone] [place] Selected Encounter This section includes the information on record at [place] for the Encounter. Date/Time Encounter Type Encounter Reason Provider Source Description May 14, 2022 02:24 Outpatient ADMIN PAT ACTIVTIES LIDIA DELGADO PM Encounter (MASNONCT) IHE Encounter Template Text not used by [place] Plan of Treatment: Future Appointments (+ 6 months) and Future Tests (+/- 45 days) The Plan of Treatment section includes future care activities for the patient from all [place] treatmentfacilities. This section includes future appointments and future orders which are active, pending orscheduled.Future Appointments This section includes appointments that were scheduled to occur 6 months from the date of the Encounter, up to a maximum of 20 appointments. The data comes from all [place] treatment facilities. Appointment Date/Time Appointment Type Appointment Facili ty Name May 17, 2022 08:28 AM AMBULATORY - NONE [facility] May 30, 2022 02:00 PM AMBULATORY - NONE [facility] Jun 06, 2022 10:14 PM AMBULATORY - NONE [facility] Jun 15, 2022 10:02 AM AMBULATORY - NONE [facility] Encounter Notes: All associated encounter notes This section contains the clinical notes associated to the Encounter. Date/Time Encounter Note(s) Provider Source May 13, 2022 10:00 AM NONVA NOTE: TAMERA KINGSTON Paola [facility] LOCAL TITLE: COMMUNITY CARE-GRIS SELF PRESENTIN G CARE COORD PLAN STANDARD TITLE: NONVA NOTE DATE OF NOTE: MAY 13, 2022@10:00 ENTRY DATE: MAY 14, 2022@14:26:18 AUTHOR: TAMERA KINGSTON EXP COSIGNER: URGENCY: STATUS: COMPLETED COMMUNITY CARE-GRIS SELF PRESENTING CARE CO ORD PLAN NOTE Has ADDENDA Emergency Notification Intake Date Presenting to the Facility: Apr Method of Contact: Notified from [employer] Notification ID: [id number] [facility] Referral #: [facility] Name: Hospital: [facility] Address: [address] [facility] City: [place] State: [place] Zip Code: [facility] Point of Contact: Name: Chief complaint: HEMATEMESIS/MELENA Primary Diagnosis: Disposition Unknown at time of intake note entry POM Review /paola/ TAMERA KINGSTON DOUBLE SURFACE OPERATOR ON DUTY Signed: 05/14/2022 14:31 Receipt Acknowledged By: 05/17/2022 08:27 /paola/ LIDIA DELGADO RN REGISTERED NURSE 05/17/2022 ADDENDUM STATUS: COMPLETED Records requested for this episode of care and w ill be sent to [facility] for uploading when received. /paola/ LIDIA DELGADO RN REGISTERED NURSE Signed: 05/17/2022 08:28 05/17/2022 ADDENDUM STATUS: COMPLETED [place] was seen in an outside ER on: 05/13/22 [facility] Diagnosis: GI bleed Transferred to [facility] for further GI care Medical records uploaded to [employer]. /paola/ LIDIA DELGADO RN REGISTERED NURSE Signed: 05/17/2022 13:58
--- OUTSIDE RECORDS SUMMARY | 2022-07-22 10:58 | XMS_ITS | Encounter Summary ---
:1940 [facility] Address [address] [place] [address] Support Name Relationship Address Phone SHAYY CARMONA Unavailable [address] [place] [address] SHAYY CARMONA Unavailable [address] [place] [address] Insurance Providers: All historical and current Section [...] MEDICARE MEDICARE PART Nov 19, PART A [id number] 800 Sandhya CARMONA (WNR) (M) A 2006 97A [id number] [facility] MEDICARE MEDICARE PART Nov 19, PART B [id number] 800 Sandhya CARMONA (WNR) (M) B 2006 [...] Date/Time Appointment Type Appointment Facili ty Name Jun 15, 2022 10:02 AM AMBULATORY - NONE [facility] Encounter Notes: All associated encounter notes This section contains the clinical notes associated to the Encounter. Date/Time Encounter Note(s) Provider Source Jun 08, 2022 12:00 AM NONVA CONSULT: VIPIN JEFFERSON MORENITA Guevara [facility] LOCAL TITLE: COMMUNITY CARE CONSULT RESULT [...] provider and scanned into [employer]. /paola/ VIPIN PROCESS Signed: 06/10/2022 14:14 06/10/2022 ADDENDUM STATUS: COMPLETED Records have been reviewed in [facility]. CPRS Problem List, Allergies, and Medications mcdowell ve been updated with the provided information. Record reflects that is established with cardiology in community. No [facility] consults ordered at this time. [facility] at this ti me. /paola/ Marcelo Bains MD Staff Physician Signed: 06/10/2022 16:56 Receipt Acknowledged By: 06/10/2022 16:59 /paola/ ZAYDA ESCAMILLA MD STAFF PHYSICIAN 06/10/2022 ADDENDUM STATUS: COMPLETED Alerting Chuck Wood that pt has established car e with: [facility] [address] [place] [address] under [facility] consult #[id number]. Re spectfully requesting that Rubi Wood update . This news writer is wanda espinosa /paola/ ZAYDA ESCAMILLA MD STAFF PHYSICIAN Signed: 06/10/2022 17:01 Receipt Acknowledged By: * AWAITING SIGNATURE * CHUCK WOOD
--- OUTSIDE RECORDS SUMMARY | 2022-07-22 10:58 | XMS_ITS | Encounter Summary ---
:1940 Author Organization [facility] Address [address] [place] [address] Support Name Relationship Address Phone SHAYY CARMONA Unavailable [address] [place] [address] SHAYY CARMONA Unavailable [address] [facility] [place] [address] Insurance Providers: All historical and current Section [...] MEDICARE MEDICARE PART Nov 19, PART A [id number] 800 Sandhya CARMONA (WNR) (M) A 2006 97A [phone] [place] MEDICARE MEDICARE PART Nov 19, PART B [id number] 800 Sandhya CARMONA (WNR) (M) B 2006 97A [phone] [place] Selected Encounter This section includes the information on record at [place] for the Encounter. Date/Time Encounter Type Encounter Description Reason Provider Source Apr 02, 2022 03:23 Outpatient Encounter ADMIN PAT ACTIVTIES PM (MASNONCT) IHE Encounter Template Text not used by [place] Plan of Treatment: Future Appointments (+ 6 months) and Future Tests (+/- 45 days) The Plan of Treatment section includes future care activities for the patient from all [place] treatmentfacilities. This section includes future appointments and future orders which are active, pending orscheduled.Future Appointments This section includes appointments that were scheduled to occur 6 months from the date of the Encounter, up to a maximum of 20 appointments. The data comes from all [place] treatment facilities. Appointment Date/Time Appointment Type Appointment Facili ty Name Apr 14, 2022 09:01 PM AMBULATORY - NONE [facility] Apr 16, 2022 02:34 PM AMBULATORY - NONE [facility] May 14, 2022 02:24 PM AMBULATORY - NONE [facility] May 17, 2022 08:28 AM AMBULATORY - NONE [facility] May 30, 2022 02:00 PM AMBULATORY - NONE [facility] Jun 06, 2022 10:14 PM AMBULATORY - NONE [facility] Jun 15, 2022 10:02 AM AMBULATORY - NONE [facility]
--- OUTSIDE RECORDS SUMMARY | 2022-07-22 10:58 | XMS_ITS | Encounter Summary ---
:1940 Author Organization [facility] Address [address] [place] [address] Support Name Relationship Address Phone SHAYY CARMONA Unavailable [address] [place] [address] SHAYY CARMONA Unavailable [address] [facility] [place] [address] Insurance Providers: All historical and current Section [...] MEDICARE MEDICARE PART Nov 19, PART A [id number] 800 Sandhya CARMONA (WNR) (M) A 2006 97A [phone] [place] MEDICARE MEDICARE PART Nov 19, PART B [id number] 800 Sandhya CARMONA (WNR) (M) B 2006 97A [phone] [place] Selected Encounter This section includes the information on record at [place] for the Encounter. Date/Time Encounter Type Encounter Reason Provider Source Description Jun 06, 2022 10:14 Outpatient ADMIN PAT ACTIVTIES LIDIA DELGADO PM Encounter (MASNONCT) IHE Encounter Template Text not used by [place] Plan of Treatment: Future Appointments (+ 6 months) and Future Tests (+/- 45 days) The Plan of Treatment section includes future care activities for the patient from all [place] treatmentfacilities. This section includes future appointments and future orders which are active, pending orscheduled.Future Appointments This section includes appointments that were scheduled to occur 6 months from the date of the Encounter, up to a maximum of 20 appointments. The data comes from all [place] treatment facilities. Appointment Date/Time Appointment Type Appointment Facili ty Name Jun 15, 2022 10:02 AM AMBULATORY - NONE [facility] Encounter Notes: All associated encounter notes This section contains the clinical notes associated to the Encounter. Date/Time Encounter Note(s) Provider Source Jun 05, 2022 10:00 AM NONVA NOTE: TAMERA KINGSTONRANJIT Guevara [facility] LOCAL TITLE: COMMUNITY CARE-GRIS SELF PRESENTIN G CARE COORD PLAN STANDARD TITLE: NONVA NOTE DATE OF NOTE: JUN 05, 2022@10:00 ENTRY DATE: JUN 06, 2022@22:15:20 AUTHOR: TAMERA KINGSTON EXP COSIGNER: URGENCY: STATUS: COMPLETED COMMUNITY CARE-GRIS SELF PRESENTING CARE CO ORD PLAN NOTE Has ADDENDA Emergency Notification Intake Date Presenting to the Facility: May Method of Contact: Notified from [employer] Notification ID: [id number] [facility] Referral #: [facility] Name: Hospital: [facility] Address: [address] [facility]: [place] State: Zip Code: [facility] Facility Point of Contact: Name: OSCAR Chief complaint: OMITING BLOOD Primary Diagnosis: Disposition Unknown at time of intake note entry POM Review /paola/ TAMERA KINGSTON MATERIAL FLOW ANALYST ON DUTY Signed: 06/06/2022 22:16 Receipt Acknowledged By: 06/09/2022 16:16 /paola/ LIDIA DELGADO RN REGISTERED NURSE 06/09/2022 ADDENDUM STATUS: COMPLETED Records requested for this episode of care and w ill be sent to [facility] for uploading when received. /paola/ LIDIA DELGADO RN REGISTERED NURSE Signed: 06/09/2022 16:16 06/10/2022 ADDENDUM STATUS: COMPLETED [place] was seen in an outside ER on: 06/05/22 [facility] Diagnosis: Esophageal ulcer, peritoneal dialysis status, dematemesis Transferred to [facility] Medical records uploaded to [facility]. 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 If notes are required immediately, contact me via MS Teams. Please rev iew for plan of care and any follow up needed. Thank you. /paola/ SÁNCHEZ REYES RN [facility] UTILIZATION MANAGEMENT Signed: 06/14/2022 15:16
--- OUTSIDE RECORDS SUMMARY | 2022-07-22 10:58 | XMS_ITS | Encounter Summary ---
:1940 Author Organization [facility] Address [address] [place] [address] Support Name Relationship Address Phone SHAYY CARMONA Unavailable [address] [facility] [place] [address] SHAYY CARMONA Unavailable [address] [facility] [place] [address] Insurance Providers: All historical and current Section [...] MEDICARE MEDICARE PART Nov 19, PART A [id number] 800 Sandhya CARMONA ATJOHN (WNR) (M) A 2006 97A [phone] [place] MEDICARE MEDICARE PART Nov 19, PART B [id number] 800 MATHEWT Ki ATIENT (WNR) (M) B 2006 97A [phone] [place] Selected Encounter This section includes the information on record at [place] for the Encounter. Date/Time Encounter Type Encounter Reason Provider Source Description Jun 15, 2022 10:02 Outpatient ADMIN PAT ACTIVTIES SÁNCHEZ REYES AM Encounter (MASNONCT) L IHE Encounter Template Text not used by [facility] Encounter Notes: All associated encounter notes This section contains the clinical notes associated to the Encounter. Date/Time Encounter Note(s) Provider Source Jun 05, 2022 12:00 PM NONVA NOTE: TED TARIQ IS [facility] LOCAL TITLE: COMMUNITY CARE-GRIS SELF PRESENTIN G CARE COORD PLAN STANDARD TITLE: NONVA NOTE DATE OF NOTE: JUN 05, 2022@12:00 ENTRY DATE: JUN 15, 2022@10:03:11 AUTHOR: TED TARIQ EXP COSIGNER: URGENCY: STATUS: COMPLETED COMMUNITY CARE-[facility] SELF PRESENTING CARE CO ORD PLAN NOTE Has ADDENDA Emergency Notification Intake Date Presenting to the Facility: May Method of Contact: Notified from [employer] worklist Notification ID: [id number] [facility] Referral #: [facility] Hospital Name: Hospital: [facility] Address: City: [facility] State: [place] Zip Code: Phone : [facility] Facility Point of Contact: Name: Chief complaint: GI BLEED Primary Diagnosis: Disposition Admitted Route of Admission: Date of Admission: May Admitting Diagnosis: GI BLEED [facility] Provider: Confirm Level of Care: Notify - Submit for /paola/ TED TARIQ Jewelry Jobber(AOD) Signed: 06/15/2022 10:05 Receipt Acknowledged By: 06/20/2022 10:31 /paola/ SÁNCHEZ REYES RN [facility] UTILIZATION MANAGEMENT 06/20/2022 ADDENDUM STATUS: COMPLETED DISCHARGE NOTE CLINICAL CARE COORDINATION INFORMATION Hospital Name: 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 Re cords also available in [facility] within [facility] Summaries and Do thuan fraser. Please review for plan of care and any follow up needed. Thank you. /paola/ SÁNCHEZ REYES RN [facility]IL[facility] MANAGEMENT Signed: 06/20/2022 10:37 Receipt Acknowledged By: 06/20/2022 11:08 /paola/ ZAYDA ESCAMILLA MD STAFF PHYSICIAN 06/20/2022 ADDENDUM STATUS: COMPLETED Discharge summary from most recent hospitalization reviewed in [facility]. Patient does have [facility] Primary [facility] consult #[id number] in place. Patient has been advised to f/u with nutrition (appears that he had appt on 10/2 7), GI esophagus clinic (appt 06/20) and nephrology for peritoneal dialysis, w hich appears to have been initiated this admission. Patient does not meet drive time criteria for [place] mmunity Care specialty cares listed above. Will ask CC RN to advise patient o f same and ask him whether he would like to see these specialties loca lly using his outside insurance, or if he would like consults for these special ties at [facility]. Please alert this program writer if [facility] are desired. This program writer is uncertain of the process regarding peritoneal dialysis, will thus alert Sandhya Rasmussen and Claudia Ashley for their revie w and consult placement if indicated. This program writer is much appreciative to all unders laurence. /paola/ ZAYDA ESCAMILLA MD STAFF PHYSICIAN Signed: 06/20/2022 11:14 Receipt Acknowledged By: 06/20/2022 11:26 /paola/ LUIS SIMS RN Registered Nurse, Care in [facility] for SHASHA URENA 06/20/2022 14:05 /es/ SANDHYA RASMUSSEN, JOHN, [facility] PRIMARY CARE INSURANCE INSPECTOR 06/20/2022 11:41 /paola/ CLAUDIA ASHLEY Nurse Practitioner 06/20/2022 ADDENDUM STATUS: COMPLETED Also note that pt appears to have cardio logist locally. Will also ask CC RN to inquire of patient if he would like to transfer his cardiology care to [facility], or if he prefers to continue to follow locally using outside insurance. This program writer is appreciative. /tahira ESCAMILLA MD STAFF PHYSICIAN Signed: 06/20/2022 11:15 Receipt Acknowledged By: 06/20/2022 11:28 /tahira SIMS RN Registered Nurse, Care in [facility] for SHASHA URENA 06/20/2022 ADDENDUM STATUS: COMPLETED Alerting covering RN per social split for review . /tahira SIMS RN Registered Nurse, Care in [facility] Signed: 06/20/2022 11:27 06/20/2022 ADDENDUM STATUS: COMPLETED Records reviewed - pt is on PD, managed by nephrology service at [facility] - pt uses his medical insurance for this. Mark Anthony Rasmussen will contact pt to determine i f pt is interested in transferring his renal care to the [place] as we have a PD program. /es/ CLAUDIA ASHLEY Nurse Practitioner Signed: 06/20/2022 11:41 Receipt Acknowledged By: 06/20/2022 14:10 /paola/ JOHN YE, [facility] PRIMARY CARE INSURANCE INSPECTOR 07/05/2022 ADDENDUM STATUS: COMPLETED Spoe to the patient, he prefers to keep his specialty care with nephrology and cardiology in the community(states he has great insurance) and does not need referrals within the [facility]. /es/ LUIS SIMS, RN Registered Nurse, Care in Community Signed: 07/05/2022 16:10
--- OUTSIDE RECORDS SUMMARY | 2022-07-22 10:58 | XMS_ITS | Encounter Summary ---
:1940 Author Organization [facility] Address [address] [place], [place] [id number] Support Name Relationship Address Phone SHAYY CARMONA Unavailable [address] [facility] [place] [address] SHAYY CARMONA Unavailable [address] [facility] [place] [address] Insurance Providers: All historical and current Section [...] MEDICARE MEDICARE PART Nov 19, PART A [id number] 800 Sandhya CARMONA P ROVERTO (WNR) (M) A 2006 97A [phone] [place] MEDICARE MEDICARE PART Nov 19, PART B [id number] 800 Sandhya CARMONA (WNR) (M) B 2006 97A [phone] [place] Selected Encounter This section includes the information on record at [place] for the Encounter. Date/Time Encounter Type Encounter Description Reason Provider Source Jun 20, 2022 02:06 Outpatient Encounter PRIMARY CARE/MEDICINE PM IHE Encounter Template Text not used by [facility] Encounter Notes: All associated encounter notes This section contains the clinical notes associated to the Encounter. Date/Time Encounter Note(s) Provider Source Jun 20, 2022 02:06 PM MYSTERY SHOPPER NOTE: SANDHYA RASMUSSEN [facility] LOCAL TITLE: SOCIAL WORK CASE MANAGEMENT NOTE STANDARD TITLE: MYSTERY SHOPPER NOTE DATE OF NOTE: JUN 20, 2022@14:06 ENTRY DATE: JUN 20, 2022@14:06:22 AUTHOR: SANDHYA RASMUSSEN EXP COSIGNER: URGENCY: STATUS: COMPLETED PCSW - [facility] Leasing Professional alerted to Community Care - GRIS Self Pre senting Care Coord Plan Note dated 06/05 and it's addenda. Per addenda, is on PD through [employer] and utilizes his private insurance for this. Phone call to to determine if he is inte rested in transferring his PD care to the [facility] PD Program. Leasing Professional received v [employer]. Message left with property underwriter's direct number inviting return call. Leasing Professional remains available. /paola/ JOHN YE, [facility] PRIMARY CARE TRAIN DRIVER Signed: 06/20/2022 14:09 Receipt Acknowledged By: * AWAITING SIGNATURE * MARJAN SMITH
--- OUTSIDE RECORDS SUMMARY | 2022-07-22 10:59 | XMS_ITS | Encounter Summary ---
:1940 Author Organization [facility] Address [address] [place] [address] Care Team Providers Name Role Phone Elsewhere, Pcp Primary Care Provider Unavailable Reason for Referral Outpatient (Routine) - Closed Specialty Diagnoses / Procedures Referred By Contact Refer red To Contact Diagnoses Deyvi Jacobs M.D. [facility] Procedures FL Esophagram Single Contrast [address] [place], [place] [phone] Referral ID Status Reason Start Date Expiration Date Visits Requ ested Visits Authorized [id number] Closed 06/20/2022 06/20/2023 1 1 Reason for Visit Outpatient (Routine) - Closed Specialty Diagnoses / Procedures Referred By Contact Refer red To Contact Diagnoses Deyvi Jacobs M.D. [facility] Procedures FL Esophagram Single Contrast [address] [place] [address] Referral ID Status Reason Start Date Expiration Date Visits Requ ested Visits Authorized [id number] Closed 06/20/2022 06/20/2023 1 1 Encounter Details Date Type Department Care Team Description 06/23/2022 Hospital Encounter Department of Radiology, Uli Coe [facility] [place], [place] [address] [place] [phone] (Wo rk) Social History Tobacco Use Types [...] or relatives? How often do you attend buddhism or methodist More than 4 time s per year 04/11/2022 services? Do you belong to any clubs or organizations Yes 04/11/2022 such as buddhism groups, unions, fraternal or athletic groups, or [...] 3 (three) times a week. Monday, Monday, Nitin docusate sodium (COLACE) Take 100 mg by 0 100 mg capsule mouth daily. gentamicin (GARAMYCIN) 0.1 APPLY TO EXIT SITE 0 1 % cream DAILY metoprolol tartrate Take 12.5 mg by 0 (LOPRESSOR) 25 mg tablet mouth 2 (two) times a day. multivitamin renal failure Take 1 tablet by 30 tablet 0 (DIALYVITE) 100-1 mg mouth daily with tablet dinner. nystatin (MYCOSTATIN) Take 5 mL (500,000 280 mL 0 2021 100,000 unit/mL suspension Units total) by mouth 4 (four) times a day. Swish & swallow ondansetron ODT Dissolve 1 tablet 20 tablet 0 06/07/2022 (ZOFRAN-ODT) 4 mg (4 mg total) in the disintegrating tablet mouth every 6 (six) hours as needed for nausea or vomiting. pantoprazole (PROTONIX) 40 Take 40 mg by mouth 0 06/04/2022 mg EC tablet every morning before breakfast. torsemide (DEMADEX) 20 mg Take 1 tablet (20 0 tablet mg total) by mouth daily. sucralfate (CARAFATE) 100 Take 10 mL (1 g 1200 mL 0 06/0707/17/2022 mg/mL suspension total) by mouth every 6 (six) hours. documented as of this encounter Plan of Treatment Upcoming Encounters Date Type Specialty Care Team Description 09/01/2022 Appointment Gastroenterology and Hepatology Lyric Coe M.D. [address] [place] [phone] (Gary hicks) 09/01/2022 Appointment Gastroenterology and Hepatology Maurice Herrera M.D., Ph.D. [address] [place] [phone] (Gary hicks) 09/02/2022 Appointment Gastroenterology and Hepatology Maurice Herrera M.D., Ph.D. [address] [place] [phone] (Gary hicks) documented as of this encounter Procedures Procedure Name Priority Date/Time Associated Comments Diagnosis FL ESOPHAGRAM RAD - Routine 06/23/2022 1:31 Achalasia Results fo r this SINGLE CONTRAST (most inpatients PM CDT procedur e are in and all the results outpatients) section. documented in this encounter Results FL Esophagram Single Contrast (06/23/2022 1:31 PM CDT) Anatomical Region Laterality Modality Gastro Intestinal, Abdominal RST LOS, Abdominal ARZ N/A Digital Radiography LOS, Abdominal FLA LOS Specimen (Source) Anatomical Collection Method Collection Time Re ceived Time Location / / Volume Laterality 06/23/2022 1:30 PM CDT Impressions 06/23/2022 2:12 PM CDT Achalasia with moderate esophageal dilation. No significant change since double contrast esophagram 02/15/2019. Narrative 06/23/2022 2:12 PM CDT EXAM: ??FL ESOPHAGRAM SINGLE CONTRAST HISTORY: Distal esophageal myotomy 1968 and 2020 COMPARISON: ??Single contrast esophagram 11/26/2021, double contrast esophagram 02/15/2019, CT chest 03/02/2022 FINDINGS: ??Double contrast esophagram d emonstrates moderate, diffuse esophageal dilation with distal tapering. One minute following ingestion of 200 mL of thick barium, the residual barium column in the esophagus measures approximately 10. 6 cm in height and 3.2 cm in greatest diameter (series 2). At five minutes, the residual colon cherie ures up to 7.6 cm in height and up to 3.1 cm in diameter (series 3). Primary peristalsis is absent in the dis mary beth two thirds of the esophagus. Moderate tertiary contractions noted in the distal two thi rds of the esophagus. A 13 mm barium tablet passed promptly into the stomach. Procedure Note Cj Mireles M.D. - 06/23/2022Formatt ing of this note might be different from the original. EXAM: FL ESOPHAGRAM SINGLE CONTRAST HISTORY: Distal esophageal myotomy 1968 and 2020 COMPARISON: Single contrast esophagram 0 11/26/2021, double contrast esophagram 02/15/2019, CT chest 03/02/2022 FINDINGS: Double contrast esophagram dem onstrates moderate, diffuse esophageal dilation with distal tapering. One minute following ingestion of 200 mL of thick barium, the residual barium column in the esophagus measures approximately 10. 6 cm in height and 3.2 cm in greatest diameter (series 2). At five minutes, the residual colon cherie ures up to 7.6 cm in height and up to 3.1 cm in diameter (series 3). Primary peristalsis is absent in the dis mary beth two thirds of the esophagus. Moderate tertiary contractions noted in the distal two thi rds of the esophagus. A 13 mm barium tablet passed promptly into the stomach. IMPRESSION: Achalasia with moderate esophageal dilat ion. No significant change since double contrast esophagram 02/15/2019. Deyvi BAKER FLUOROSCOPY PROCEDURES documented in this encounter Visit Diagnoses Diagnosis Achalasia documented in this encounter Administered Medications Inactive Administered Medications - up to 3 most recent administrations Medication Order MAR Action Action Date Dose Rate Site barium 60 % (w/v) suspension Given 06/23/2022 1:30 PM CDT 50 mL (LIQUID E-Z-PAQUE) Code/trauma/sedation medication, Starting on Alyssa 06/23/22 at 1330 barium 700 mg tablet (E-Z-DISK) Given 06/23/2022 1:31 PM CDT 700 mg Code/trauma/sedation medication, Starting on Alyssa 06/23/22 at 1331 barium 98 % oral powder for suspension Given 06/23/2022 1:31 PM CDT 200 mL (E-Z-HD) Code/trauma/sedation medication, Starting on Alyssa 06/23/22 at 1331 documented in this encounter Care Teams Director Of Convention Services Relationship Specialty Start Date End Date Elsewhere, Pcp PCP - General Internal Medicine 06/05/22 documented as of this encounter
--- OUTSIDE RECORDS SUMMARY | 2022-07-22 10:59 | XMS_ITS | Clinical Summary ---
:[address] [facility] Address [address] [place] [address] Care Team Providers Name Role Phone Elsewhere, Pcp Primary Care Provider Unavailable Source Comments Patient records contain information from all sites at [facility]. For routine questions regarding patient records, call [phone] during business hours, M-F 8:00 AM - 5:00 PM Central Time. Record requests for emergency care only can be directed to [phone] at any time.[facility] Allergies Active Allergy Reactions Severity Noted Date [...] 11/09/2018 Ac tive (ZYLOPRIM) 100 mg mouth every tablet morning. calcitRIOL Take 1 capsule 0 12/27/2018 Act lynsey (ROCALTROL) 0.25 mcg by mouth 3 capsule (three) times a week. Monday, Monday, Monday metoprolol tartrate Take 12.5 mg 0 Active (LOPRESSOR) 25 mg by mouth 2 tablet (two) times a day. multivitamin renal Take 1 tablet 30 tablet 0 12/08/2021 Active failure (DIALYVITE) by mouth daily 100-1 mg tablet with dinner. torsemide (DEMADEX) Take 1 tablet 0 12/12/2021 Active 20 mg tablet (20 mg total) by mouth daily. amoxicillin (AMOXIL) Take 4 0 05/30/2022 Active 500 mg capsule capsules by mouth once as needed (Dental procedures). docusate sodium Take 100 mg by 0 Active (COLACE) 100 mg mouth daily. capsule gentamicin APPLY TO EXIT 0 06/01/2022 Acti ve (GARAMYCIN) 0.1 % SITE DAILY cream pantoprazole Take 40 mg by 0 06/04/2022 Ac tive (PROTONIX) 40 mg EC mouth every tablet morning before breakfast. ondansetron ODT Dissolve 1 20 tablet 0 06/07/2022 Ac tive (ZOFRAN-ODT) 4 mg tablet (4 mg disintegrating total) in the tablet mouth every 6 (six) hours as needed for nausea or vomiting. nystatin Take 5 mL 280 mL 0 06/20/2022 Active (MYCOSTATIN) 100,000 (500,000 Units unit/mL suspension total) by mouth 4 (four) times a day. Swish & swallow sucralfate TAKE 10 ML BY 840 mL 0 07/17/2022 Acti ve (CARAFATE) 100 mg/mL MOUTH EVERY 6 3 suspension HOURS famotidine (PEPCID) Take 1 tablet 90 tablet 0 06/29/2022 Active 20 mg tablet (20 mg total) by mouth at bedtime. sucralfate Take 10 mL (1 1200 mL 0 06/07/2022 Disc ontinued (CARAFATE) 100 mg/mL g total) by 2 suspension mouth every 6 (six) hours. Active Problems Problem Noted Date Hemorrhage Gastrointestinal 06/05/2022 Alf (Current) Anticoagulant Treatment 12/09/2021 Hypertension And End [...] Encounters Date Type Specialty Care Team Description 06/29/2022 Internal E-Consult Nephrology and Latrell Aviles ia; Hypertension Gardner, Failure Renal E nd Stage (HCC) Trinh Ivy, Ph.D. 06/29/2022 Documentation Gastroenterology and Deyvi Coe Hepattanya Meehan M.D. 06/29/2022 Orders Only Gastroenterology and Deyvi Coe Dyspha antonino (Primary Dx); Hepatology Trinh Meehan Gastro-Esophage al Reflux Disease With Esophagitis Without Bleeding 06/24/2022 Refill [facility] Allison Justin M.D. 06/23/2022 Hospital Encounter Radiology Deyvi Coe M.D. 06/23/2022 Documentation Gastroenterology and Deyvi Coe Hepattanya Meehan M.D. 06/20/2022 Comprehensive Visit Gastroenterology and Libra, Failure Renal End Stage (HCC) (Primary Dx); Hepatology Adiel Velázquez M.D., Ph.D. Loss Weight Deyvi Coe M.D. 06/16/2022 Clinical Support Nutrition Libra, Kelechi Mendes M.D., Ph.D. Ace Morris, JANY, LD 06/09/2022 Clinical Gastroenterology and Libra Communication Hepatology Maurice Mendes M.D., Ph.D. 06/07/2022 Orders Only Gastroenterology and Libra, Hepatology Maurice Mendes M.D., Ph.D. 06/07/2022 Clinical Gastroenterology and Libra Communication Hepatology Maurice Mendes M.D., Ph.D. 06/07/2022 Clinical Gastroenterology and [place] [facility] Hepatology Maurice Mendes M.D., Ph.D. 06/07/2022 Clinical Gastroenterology and [place] Hepatology Maurice Mendes M.D., Ph.D. 06/06/2022 Anesthesia Event Gastroenterology and Beyai, Hepatology DWIGHT Ordonez, SHERIFF'S SERGEANT Jacob Ennis APRN, SHERIFF'S SERGEANT 06/06/2022 Ancillary Procedure 06/06/2022 Clinical Gastroenterology and [place] [facility] Hepatology Maurice Mendes M.D., Ph.D. 06/05/2022 Hospital Encounter Ari Botello, Holli Zaidi M.D. 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 [address] [place] [phone] (Wo rk) 09/01/2022 Appointment Gastroenterology and Hepatology Maurice Herrera M.D., Ph.D. [address] [place] [phone] (Wo rk) 09/02/2022 Appointment Gastroenterology and Hepatology Maurice Herrera M.D., Ph.D. [address] [place] [phone] (Wo rk) Health Maintenance Due Date Last Done Comments Depression Screening (Annual 08/21/2021 PHQ-2) Office Visit [...] 11/04/2014, Zoster Vaccines Completed 02/14/2019, 12/11/2018, 04/08/2010 COVID-19 Vaccine Completed 05/19/2022, 05/18/2021, 10/14/2020, Additional history exists Influenza Vaccine Completed 05/19/2022, 05/18/2021, 05/06/2020, Additional history exists Fall Risk Screen (Annual) Completed 06/06/2022 Medical Devices Implanted Type Area Supervisor Cloth Winding Device Shelf Model / Identifier Expiration Date Ser ial / Lot Osteomed-Screw Auto-Drive 1.6 X 4 - [place] [id number] Hardware [employer] Implanted: Qty: 16 on 06/19/2002 pins/screws/r ods Description: Device Supervisor Cloth Winding - Libox. Device Status Text - [id number]. Procedures Procedure Name Priority Date/Time Associated Comments Diagnosis FL ESOPHAGRAM SINGLE RAD - Routine 06/23/2022 1:31 Achalasia Res ults for CONTRAST (most inpatients PM CDT this proced ure and all are in the outpatients) results section. RENAL FUNCTION PANEL, S Routine 06/07/2022 4:45 R esults for AM CDT this procedure are in the results section. CBC WITH DIFFERENTIAL, Routine 06/07/2022 4:45 Re sults for B AM CDT this procedure are in the results section. HEMOGLOBIN, B Timed 06/06/2022 4:16 Results for PM CDT this procedure are in the results section. SURGICAL PATHOLOGY Routine 06/06/2022 Results f or 12:56 PM CDT this procedure are in the results section. LDA ANE ENDOTRACHEAL Routine 06/06/2022 Results for AIRWAY 12:38 PM CDT this procedure are in the results section. GASTROENTEROLOGY IMAGE Routine 06/06/2022 Resul ts for EXAM 12:10 PM CDT this procedure are in the results section. UPPER GI ENDOSCOPY Routine 06/06/2022 Results f or 12:06 PM CDT this procedure are in the results section. EGD Routine 06/06/2022 (ESOPHAGEALGASTRODUODEN 12:06 PM CDT OSCOPY) CONTINUOUS CYCLING Routine 06/06/2022 PERITONEAL DIALYSIS 11:01 AM CDT (CCPD) CBC WITH DIFFERENTIAL, Routine 06/06/2022 4:23 Re sults for B AM CDT this procedure are in the results section. RENAL FUNCTION PANEL, S Routine 06/06/2022 4:23 R esults for AM CDT this procedure are in the results section. PROTHROMBIN TIME (PT), Routine 06/06/2022 4:23 Re sults for P AM CDT this procedure are in the results section. ECG STAT 06/05/2022 Results for 11:13 PM CDT this procedure are in the results section. TYPE AND SCREEN STAT 06/05/2022 Results for 11:06 PM CDT this procedure are in the results section. CBC WITHOUT STAT 06/05/2022 Results for DIFFERENTIAL, B 11:06 PM CDT this procedu re are in the results section. from Last 3 Months Results FL Esophagram Single Contrast (06/23/2022 1:31 [...] contrast esophagram 02/15/2019. Deyvi BAKER FLUOROSCOPY PROCEDURES (ABNORMAL) Renal Function Panel (06/07/2022 4:45 AM [...] [facility] - [address] [place], [place] [address] [place] [address] [place] [address] Laboratories-[facility] [address] (ABNORMAL) CBC with Differential, Blood (06/07/2022 4:45 AM CDT)Only the most recent of2 resultswithin the time period is included. [facility] Method Time Signature Hemoglobin 10.3 (L) 13.2 [...] M.D. LAB BLOOD ADD-ON Performing Organization Address City/[facility]/ZIP Code Phon e Number [facility] - [address] [place] [address] [facility] [place] [address] (ABNORMAL) Hemoglobin (06/06/2022 4:16 PM CDT) P athologist Signature Hemoglobin 11.7 (L) 13.2 - 16.6 06/06/2022 DTL g/dL 4:44 PM CDT Specimen Anatomical Collection Method Collection Time Receive d Time (Source) Location / / Volume Laterality Blood (Blood, 06/06/2022 4:16 PM 06/06/20 4:38 Venous) CDT PM CDT Dariel Manzanares M.D. LAB BLOOD ADD-ON Performing Organization Address [facility]/ZIP Code Phon e Number [facility] - [address] [place] [address] Surgical Pathology (06/06/2022 12:56 PM CDT) [...] reagent. Its performance characteristics were determined by [facility] in a manner consistent with CLIA requirements. [...] [facility] [address] [place], [place] [address] [facility] [place] [address] [facility] [address] LDA ANE ENDOTRACHEAL AIRWAY (06/06/2022 12:38 PM [...] ETT location: oral VL device: glide scope [place] scope blade size: 4 Adult tube size: [...] Organization Address City/State/ZIP Code Phon e Number IITX IITX NA Upper GI Endoscopy (06/06/2022 12:06 PM CDT) Specimen (Source) Anatomical Collection Method Collection Time Re ceived Time Location / / Volume Laterality 06/06/2022 12:06 PM CDT Impressions [employer] - 06/06/2022 1:11 PM CDT Post-op [...] stomach. ? - Normal examined duodenum. Narrative [employer] - 06/06/2022 1:11 PM CDT Saul [...] e Number [employer] NA Prothrombin Time (PT) [...] M.D. LAB BLOOD ADD-ON Performing Organization Address City/[facility] Code Phon e Number [facility] - [address] [place], [place] [address] [facility] [place] [address] [facility] [address] [facility] ECG 12 Lead (06/05/2022 11:13 PM CDT) athologist Signature Ventricular Rate 89 BPM MUSE ECG/Min CA Interval 160 ms MUSE QRSD Interval 128 ms MUSE QT Interval 384 ms MUSE QTC Interval 467 ms MUSE P [place] 70 degrees MUSE R [place] 30 degrees MUSE T Wave [place] 54 degrees MUSE Specimen Anatomical Collection Method [...] Deshpande M.D. ECG ORDERABLES Performing Organization Address City/[facility]/ZIP Code Phon e Number MUSE MUSE NA (ABNORMAL) CBC without Differential (06/05/2022 11:06 PM CDT) [facility] Method Time Signature Hemoglobin 12.7 (L) 13.2 [...] [facility] - [address] [place], [place] [address] [place] [address] [facility] 200 [facility] Type and Screen (with reflex Antibody ID) (06/05/2022 11:06 PM CDT) [facility] Method Time Signature ABORh O Pos Not [...] [facility] - [address] [place], [place] [address] [facility] [place] [address] [facility] [address] from Last 3 Months Insurance Payer Benefit Plan Subscriber ID Effective Phone Address Typ e / Group Dates [facility] MEDICARE [id number] 2018-Pres [phone] PPO COMPLETE ent [phone] [place] [address] FOR LIFE FOR [id number] 2018-Pre [phone] Indemnity LIFE sent [phone] [place] [address] Advance Directives For more information, please contact: [phone] Latest Code Status on File Code Status [...] Answer Comments Full Code: Discussed Care Teams Base Engineer Relationship Specialty Start Date End Date Elsewhere, Pcp PCP - General Internal Medicine 06/05/22
--- OUTSIDE RECORDS SUMMARY | 2022-07-22 10:59 | XMS_ITS | Encounter Summary ---
:1940 Author Organization [facility] Address [address] [place] [address] Care Team Providers Name Role Phone Elsewhere, Pcp Primary Care Provider Unavailable Reason for Visit Outpatient (Routine) - Closed Specialty Diagnoses / Procedures Referred By Contact Refer red To Contact Nephrology and Diagnoses Achalasia Failure Renal End Stage (HCC) Deyvi Coe, [facility] Hypertension Procedures Nephrology - Electrolyte disorder eConsu M.DBailey [address] [place] [address] Referral ID Status Reason Start Date Expiration Date Visits Requ ested Visits Authorized [id number] Closed 06/20/2022 06/20/2023 1 1 Encounter Details Date Type Department Care Team Description 06/29/2022 Internal Division of Kelechi Hernández; E-Consult Nephrology and Trinh Ivy, Failure Renal End Stage (HCC) Hypertension in Ph.D. [place], [place] [address] [place] [address] [address] [place] [phone] Social History Tobacco Use Types Packs/Day Years [...] How often do you attend rastafarian or rastafarian More than 4 time s [...] PM CDT documented as of this encounter Consult Notes Cata Hernández M.D., Ph.D. - 06/29/2022 9:45 AM CST SUBJECTIVE Ordering Physician: Deyvi Coe M.D. The patient was not personally interviewed or examined. The history and examination findings are based on the clinical documentation provided and/or discussed with a physician or provider who had personally interviewed and examined the patient. Time spent: Five minutes or more of medical review. Chief Complaint / Reason for Visit A consult was placed regarding David Castro, a 81 y.o. male. 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 qday? BID? what dose would be safe? any monitoring? ASSESSMENT / PLAN #1 Achalasia #2 Failure Renal End Stage (HCC) There is risk of aluminum accumulation and toxicity over time in patients with ESRD taking sucralfate. There are conflicting results from literature as to the extend of aluminum absorption from sucralfate in patients with ESRD, however many of these studies are of short duration, and likely the effects of aluminum absorption and accumulation are seen in the termite exterminator helper, therefore group home use of sucralfate in this population is not safe. Avoid the use of group home sucralfate therapy if possible, and monitor for potential signs of aluminum toxicity, including confusion, asterixis, dysarthria, muscle weakness, seizures, microcytic anemia. Thank you for the opportunity to participate in the care of this patient. Irma Gardner M.D., Ph.D. CTOR BROADCAST documented in this encounter Plan of Treatment Upcoming Encounters Date Type Specialty Care Team Description 09/01/2022 Appointment Gastroenterology and Hepatology Lyric Coe M.D. [address] [place] [phone] (Wo rk) 09/01/2022 Appointment Gastroenterology and Hepatology Maurice Herrera M.D., Ph.D. [address] [place] [phone] (Wo rk) 09/02/2022 Appointment Gastroenterology and Hepatology Maurice Herrera M.D., Ph.D. [address] [place] [phone] (Wo rk) documented as of this encounter Visit Diagnoses Diagnosis Achalasia Failure Renal End Stage (HCC) documented in this encounter Care Teams Integration Architect Relationship Specialty Start Date End Date Elsewhere, Pcp PCP - General Internal Medicine 06/05/22 documented as of this encounter
--- OUTSIDE RECORDS SUMMARY | 2022-07-22 10:59 | XMS_ITS | Clinical Summary ---
:1940 Author Organization [employer] [place] [address] Care Team Providers Name Role Phone Kush Doran MD Primary Care Provider [phone] Viki Abarca MD Unavailable Allergies Active Allergy [...] cantly Medications Medication Sig Dispensed Refills Start Date End Date Status calcitrioL (ROCALTROL) Take three times 36 capsule. 3 12/03/19 22 Active 0.25 mcg a week on MWF's capsuleIndications: Secondary renal hyperparathyroidism (HC) torsemide (DEMADEX) 20 Take 1 Tablet 180 Tablet 3 12/10/2021 Active mg tabletIndications: (20 mg) by mouth CKD (chronic kidney once daily. disease) stage 4, GFR 15-29 ml/min (HC) CPAPIndications: ELEIN t CPAP machine 1 Each 11 01/24/2022 Active (obstructive sleep for home use at apnea), Dry mouth pressure: 13 cmw , [...] Frequency of use: Daily Dialyvite 100-1 mg tab Take 1 Tablet by 0 03/19/2022 Active mouth at bedtime. docusate (Colace) 100 mg Take 100 mg by 0 Active capsule mouth once daily in the evening. allopurinoL (ZYLOPRIM) Take 1 Tablet 90 Tablet 3 05/30/2022 Active 100 mg (100 mg) by tabletIndications: Gout, mouth once unspecified cause, daily. unspecified chronicity, unspecified site amoxicillin (AMOXIL) 500 TAKE 4 CAPSULES 4 Capsule 1 2 Active mg capsuleIndications: BY MOUTH 1 HOUR Need for SBE (subacute BEFORE DENTAL bacterial endocarditis) APPOINTMENT prophylaxis sucralfate (CARAFATE) Take 1 g by 0 06/07/202206/07 Active 100 mg/mL suspension mouth every 6 23 hours. ondansetron (ZOFRAN ODT) Take 4 mg by 0 06/07/2022 Active 4 mg disintegrating mouth every 6 tablet hours if needed. pantoprazole (PROTONIX) Take 1 Tablet 30 Tablet 0 06/22/2022 Active 40 mg delayed-release (40 mg) by mouth tabletIndications: two times daily Gastrointestinal before meals. hemorrhage with hematemesis metoprolol tartrate Take 0.5 Tablets 0 06/22/2022 Active (LOPRESSOR) 25 mg (12.5 mg) by tabletIndications: mouth two times Cardiovascular symptoms daily. Hospital, Clinic, Ordered Dose Route Frequency Start Date End Date Status or Other Facility Administered Medication ferumoxytoL 510 mg IV SELECTION NOT 04/29/2022 Act lynsey (FERAHEME) 510 AVAILABLE mg/17 mL (30 mg/mL) injection 510 mgIndications: anemia in chronic kidney disease ferumoxytoL 510 mg IV SELECTION NOT 06/23/2022 Dis continued (FERAHEME) 510 AVAILABLE 2 mg/17 mL (30 mg/mL) injection 510 mgIndications: anemia in chronic kidney disease ferumoxytoL 510 mg IV SELECTION NOT 06/30/2022 Dis continued (FERAHEME) 510 AVAILABLE 2 mg/17 mL (30 mg/mL) injection 510 mgIndications: Anemia in stage 5 chronic kidney disease, not on chronic dialysis (HC) ferumoxytoL 510 mg IV ONE TIME 06/30/2022 Ended (FERAHEME) 510 2 mg/17 mL (30 mg/mL) injection 510 mgIndications: 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 F/U (Cinthya guerrero, 06/05/2022 Kush - 06/07/2022, G I bleed) MD Bebe 06/22/2022 Travel 06/08/2022 Office Visit Nilda, Follow Up (Rosa Maria Gordon anticoagulation ) 06/08/2022 Travel 06/02/2022 Telephone [facility] Anticoagulation (CHART UPDATE/ Kush WARFARIN D/C) MD Bebe 06/01/2022 Orders Only [place], <No scans attac hed> Sebastian Berry MD 05/30/2022 Ancillary Procedure 05/30/2022 Office Visit [facility] Medicare ANNUAL (subsequent) Kush Visit (81 year old) MD Bebe 05/30/2022 Travel 05/23/2022 Telephone [facility] [place] Medication Shamika kaylin Philippe MD 05/20/2022 Telephone 1, [facility] (Restart of Clinic warfarin) 05/20/2022 Anticoagulation 1, [facility] Anticoagul[facility] (warfarin) Clinic 05/19/2022 Office Visit Adela[facility] F/U (Dieudonne Danielle 05/13/22, GI ble ed, travis Robertson MD ground emesis); Immunization/In jection 05/19/2022 Travel 05/17/2022 Hospital Encounter Luis Angel, Gastroint estinal hemorrhage, MD Paramjit unspecified gas trointestinal hemorrhage type 05/17/2022 Travel 05/16/2022 Patient Outreach Justen Primary RN Care Management; Prisca Costello RN Hospital F/U (L BENITO 53) 05/13/2022 Anesthesia Event Leroy Rowan MD Zweber, Cj Cespedes, CONTINUITY TESTER 05/13/2022 Surgery Laith, ESOPHAGOGASTROD UODENOSCOPY MD Tai 05/13/2022 Hospital Encounter [place], Gastroint estinal hemorrhage with hematemesis (Primary Dx); - Ricardo Gastrointestina l hemorrhage, unspecified gastrointestinal hemorrhage type 05/14/2022 MD Luis Angel Robertson Pezhman, MD Discharge Summary - Paramjit Plasencia MD - 05/14/2022 3:02 PM CDT Images from the original not e were not included. HOSPITALIST DISCHARGE SUMMAR Y ? ? [facility] Admission Date: 05/13/2022 Discharge Date: 05/14/2022 Discharge [...] renal disea se) (HC) Achalasia; discussed at [facility] 04/29/21. No further procedural intervention. Aspiration pneumonitis (HC) Empyema, right (HC): tap 30 0ml 2021. Cx negative. Trapped lung; Right w/ bead builder devika effusion. Idiopathic esophageal varic es with bleeding (HC) Moderate protein-calorie ma lnutrition (HC) ADDITIONAL COMMENTS BANDARIN G DIAGNOSIS SPECIFICITY Additional Diagnosis [facility] Course Mr. David Castro is a 81 y.o. male with a history of End-stage renal disease on peritoneal dialysis, achalasia, history of idiopathic esophageal varices with bleeding and recent banding 03/2022 here, paroxysmal A. 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 for direct admit for coffee-ground emesis. ?? [...] PROTONIX Take 1 Tablet (40 mg) by [facility] once daily. TAKE THE MEDICINE(S) PRES CRIBED BELOW. The provider has reviewed how you said you take these medicine(s) and wants you to take them as prescribed, not as how you reported taking them. Instructions metoprolol tartrate 25 mg ta blet For diagnoses: Cardiovascula r symptoms Commonly known as: LOPRESSOR TAKE 1 TABLET BY MOUTH TWIC E DAILY Doctor's comments: Requestin g 1 year supply CONTINUE taking these medici [...] ROCALTROL Take three times a week on [facility]'s Colace 100 mg capsule Generic drug: docusate [...] CARAFATE Take 10 mL (1,000 mg) by [facility] four times daily before meals and at bedtime. Take on empty stomach. torsemide 20 mg tablet For diagnoses: CKD (chronic kidney disease) stage 4, GFR 15-29 ml/min (HC) Commonly known as: DEMADEX Take 1 Tablet (20 mg) by [facility] once daily. Doctor's comments: Radha chaparro 1 year supply STOP taking these medicines omeprazole 20 mg Delayed-Rel ease capsule Commonly known as: PRILOSEC warfarin 2 mg tablet Commonly known as: COUMADIN Where to get your medicines These medications were sent to [facility], [address], [place] [address] Hours: M-F: 8:00am-6:00pm, Sat-Sun: 9:00am-2:00pm pantoprazole 40 [...] Follow Up Ap pointment(s) Please follow-up with [facility] in 1-2 weeks. Our office will call you to schedule this follow-up. If you do not hear from our office within a few days after discharge, please call our office at [phone] to schedule a follow-up visit. When to follow up: 11 to 14 days When is patient being disch arged?: Other/Unknown Primary Care Provider meño w jenny appointment(s) Kush Doran MD When to follow [...] d? Your health care provider i s: Ksuh Doran MD Please call your health care [...] medical emergency. [facility] You were in the hospital fo [...] and examined today. Paramjit Plasencia MD Hospitalist, [facility] ? ? [phone] 05/13/2022 Travel 05/06/2022 Orders Only Lab, [facility] 05/06/2022 Nurse/Clinic Staff Only Infu lula Therapy (Feraheme 2/2) 05/06/2022 Anticoagulation (warfarin) 1, [facility] Anticoagulation 05/06/2022 Travel 05/03/2022 Nurse/Clinic Staff Only Infu lula Therapy (Feraheme 1/2) 05/03/2022 Travel 05/02/2022 Telephone Kush Doran MD 04/29/2022 Orders Only Sebastian Charles <No scans a ttached> MD Jamal from Last 3 Months Immunizations Name Administration Dates Next Due AMB Influenza, IIV4 PF (=>6 mos 06/13/2018 Flulaval,Fluzone Fluarix)(Flu Clinic Only) COVID-19 vaccine ([employer] 05/19/2022 30mcg/0.3mL) 12YO+ BIVALENT BOOSTER PF, MDV COVID-19 vaccine ([employer] 05/18/2021, 10/14/2020, 30mcg/0.3mL) PF, MDV Hepatitis B [...] 10 days, have you been in contact No / Unsure 06/30/2022 12:46 PM 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 Obstetrics History Last Filed Vital Signs Vital Sign Reading Time Taken Comments Blood Pressure 123/57 06/30/2022 2:13 PM [employer] PROFILER Pulse 58 06/30/2022 2:13 PM FBI PROFILER Temperature 36.5 ??C (97.7 ??F) 05/19/2022 2:16 PM CDT Respiratory Rate 14 06/08/2022 10:01 AM CDT Oxygen Saturation 99% 06/30/2022 2:13 PM [employer] PROFILER Inhaled Oxygen Concentration - - Weight 74.4 kg (164 lb) 06/22/2022 1:30 PM CDT Height 172 cm (5' 7.72) 06/08/2022 10:01 AM CDT Body Mass Index 25.14 06/08/2022 10:01 AM CDT Plan of Treatment Health Maintenance [...] history exists Medical Devices Implanted Type Area Web Feeder Device Shelf Model / Identifier Expiration Serial / Date Lot Cath Dial Adlt Std Merit Classic Peritoneal Perc N/A: Abdome n 05/14/2024 CF- [id number] / Implanted: Qty: 1 on 08/16/2021 by Clayton Burgess MD at [facility] / Description: CATH DIAL ADLT STD MERIT [...] recommended in 3-5 years. Chyna Barragan PA-C [facility] 05/31/2022 Narrative 05/31/2022 1:38 PM CDT For Patients: Results are automatically released to your [facility] ([employer]il[employer] net) account once available, in com pliance with federal regulations. This means that you may see your results before your provider has had a chance to review them. Please allow 2-3 business days for your provider to comment on the results. XR DXA Bone Mineral Density (BMD) EXAM LOCATION: [address] [address] PATIENT NAME: David Castro DATE OF : [...] ESRD (END STAGE RENAL DISEASE) COMPARISON DATE(S): 2016 DXA scans are compared to prior studies [...] (05/19/2022 2:53 PM CDT)Only the most recent of6 results within the time period is included. athologist Signature HEMOGLOBIN 11.1 (L) 13.5 - 05/19/2022 [facility] [employer] 17.5 g/dL 3:00 PM CDT [facility] MCV 99 80 - 100 05/19/2022 [facility] HEALTH fL 3:00 PM CDT [facility] Specimen Anatomical Collection Method / Collection Time Recei thony Time (Source) Location / Volume Laterality Blood BLOOD SPECIMEN / Venipuncture / 05/19/2022 2:53 2021 2:56 Unknown Unknown PM CDT PM CDT Dieudonne Son MD HEMATOLOGY Performing Organization Address City/State/ZIP Code Phon e Number [facility] [address] [place] [address] (ABNORMAL) PROTIME-INR (05/19/2022 2:53 PM CDT)Only the most recent of3 results within the time period is included. P athologist Signature INR 1.1 <1.3 05/19/2022 [facility] 8:14 PM CDT LABORATORY-CENT [facility] LABORATORY PROTIME 13.9 (H) 12.0 - 13.8 05/19/2022 [facility] 8[facility]14 PM CDT LABORAT[facility]-CENT [facility] LABORATORY Specimen Anatomical Collection Method / Collection Time Recei thony Time (Source) Location / Volume Laterality Blood BLOOD SPECIMEN / Venipuncture / 05/19/2022 2:53 2021 2:56 Unknown Unknown PM CDT PM CDT Narrative [facility] LABORATORY-CENTRAL LABORAT ORY - 05/19/2022 8:14 [...] Organization Address City/State/ZIP Code Phon e Number [facility] [address] [place] [address] LABORATORY-CENTRAL 2000 LABORATORY XR ESOPHAGUS (05/17/2022 1:39 [...] provider. If you have questions, please contact yo health care provider. INDICATION: Gas just hemorrhage. [...] 100 05/14/2022 [facility] mg/dL 11:35 AM CDT [facility] Specimen Anatomical Collection Method Collection Time Receive d Time (Source) Location / / Volume Laterality Blood BLOOD SPECIMEN / 05/14/2022 11:34 022 Unknown AM CDT 11:34 AM CDT Paramjit Plasencia MD CHEMISTRY Performing Organization Address City/State/ZIP Code Phon e Number [address] [address] CENTER (ABNORMAL) BASIC METABOLIC PANEL (05/14/2022 6:27 AM CDT) Analysis Performed At Patho logist Time Signature SODIUM 144 135 - 145 05/14/2022 [facility] mmol/L 7:30 AM CDT REG[facility]AL [facility] POTASSIUM 3.5 3.5 - 5.0 05/14/2022 [facility] mmol/L 7:30 AM T [facility] CHLORIDE 105 98 - 110 05/14/2022 [facility] mmol/L 7:30 AM T [facility] CO2,TOTAL 30 21 - 31 05/14/2022 [facility] mmol/L 7:30 AM T [facility] ANION GAP 9 5 - 18 05/14/2022 [facility] 7:30 AM T [facility] GLUCOSE 96 65 - 100 05/14/2022 [facility] mg/dL 7:30 AM T [facility] CALCIUM 8.7 8.5 - 10.5 05/14/2022 [facility] mg/dL 7:30 AM T [facility] BUN 42 (H) 8 - 25 05/14/2022 [facility] mg/dL 7:30 AM T [facility] CREATININE 3.61 (H) 0.72 - 05/14/2022 [facility] 1.25 mg/dL 7:30 AM T [facility] BUN/CREAT RATIO 12 10 - 20 05/14/2022 [facility] 7:30 AM T [facility] eGFR 16 (L) >90 05/14/2022 [facility] mL/min/1.7 7:30 AM CDT [facility] 3m2 CENTER Comment: As of 2021, eGFR [...] Organization Address City/State/ZIP Code Phon e Number [address] TRANSFUSE PLASMA (NURSE COMMUNICATION ORDER) (05/13/2022 4:50 [...] 4:46 PM CDT Endoscopy Patient Name: David Csatro Procedure D ate: 05/13/2022 Gender: Male Date [...] lower esophageal sphincter was found. Hematin (altered blood/ppsqnf-khsmtd-sb ke material) was found in the entire [...] P athologist Signature QUANTITY 1 05/13/2022 2:46 [facility] PM CDT [facility] BLOOD BANK Specimen (Source) Anatomical Collection Method Collection Time Re ceived Time Location / / Volume Laterality Blood BLOOD SPECIMEN / 05/13/2022 1:39 Unknown PM CDT Ricardo Sawyer MD BLOOD BANK Performing Organization Address City/[facility]/ZIP Code Phon e Number [address] [address] [place] BLOOD BANK PLASMA SNGL DON FFPEA UNIT (05/13/2022 1:45 PM CDT) [facility] Method Time Signature PRODUCT BLOOD O Rh Positive [facility] BLOOD BANK PRODUCT ID [id number] [facility] BLOOD BANK PRODUCT STATUS Transfused [facility] BLOOD BANK PRODUCT FP Aph ACD-A [facility] [address] [place] [address] BLOOD BANK PRODUCT CODE [id number] [facility] BLOOD BANK ISSUE DATE/TIME 05/13/22 15:12 [facility] BLOOD BANK Specimen (Source) Anatomical Location Collection Method / Collectio n Time Received Time / Laterality Volume Ricardo Sawyer MD BLOOD BANK Performing Organization Address City/[facility]/ZIP [facility] Phon e Number [address] [address] [place] BLOOD BANK COVID 19 (05/13/2022 12:30 PM CDT) [facility] [place] Method Time Signature COVID 19 Not detected Not detected 05/13/2022 [facility] [place] 9:18 PM CDT [facility] Specimen Anatomical Location / Collection Method Collection Matthew e Received Time (Source) Laterality / Volume Other SPECIMEN FROM Non-Blood / 05/13/2022 12:30 05/13/2022 8:06 NASOPHARYNGEAL Unknown PM CDT PM CDT STRUCTURE / Unknown Narrative [facility] - 022 9:18 PM CDT This test [...] Ricardo Sawyer MD MICROBIOLOGY Performing Organization Address City/[facility]/ZIP [facility] Phon e Number [address] [address] CENTER COVID 19 COLLECTION (05/13/2022 12:30 PM CDT) [facility] [place] Method Time Signature TESTING [facility] 05/13/2022 [facility] LABORATORY Laboratory 8:06 PM [facility] Comment: Specimen submitted to [facility] Laboratory for testing. Specimen Anatomical Location / Collection Method Collection Matthew e Received Time (Source) Laterality / Volume Other SPECIMEN FROM Non-Blood / 05/13/2022 12:30 05/13/2022 NASOPHARYNGEAL Unknown PM CDT 12:43 PM CDT STRUCTURE / Unknown Ricardo Sawyer MD SEND OUTS Performing Organization Address City/[facility] Phon e Number [address] [address] CENTER Type and Screen (05/13/2022 12:08 PM CDT) [facility] [place] Method Time Signature ABORH O Rh 05/13/2022 [facility] Positive 1:06 PM CDT [facility] BLOOD BANK ANTIBODY Negative Negative 05/13/2022 [facility] SCREEN 1:06 PM CDT [facility] BLOOD BANK SPECIMEN 05/16/22 05/13/2022 [facility] EXPIRATION 23:59 1:06 PM CDT REGIONAL DATE/TIME [facility] CENTER BLOOD BANK Specimen Anatomical Collection Method / Collection Time Recei thony Time (Source) Location / Volume Laterality Blood BLOOD SPECIMEN / Venipuncture / 05/13/2022 12:08 05/13 Unknown Unknown PM CDT 12:15 PM CDT Ricardo Sawyer MD BLOOD BANK Performing Organization Address City/State/ZIP Code Phon e Number [facility] [address] [place] [address] CENTER BLOOD BANK (ABNORMAL) CBC W PLT NO DIFF (05/13/2022 12:08 PM CDT) Analysis Performed At Patho logist Time Signature WHITE BLOOD 6.5 4.5 - 11.0 05/13/2022 [facility] COUNT thou/cu mm 12:18 PM CDT [facility] RED BLOOD COUNT 3.32 (L) 4.30 - 05/13/2022 [facility] 5.90 12:18 PM CDT [facility] CENTER HEMOGLOBIN 10.5 (L) 13.5 - 05/13/2022 [facility] 17.5 g/dL 12:18 PM CDT [facility] HEMATOCRIT 33.8 (L) 37.0 - 05/13/2022 [facility] 53.0 % 12:18 PM CDT [facility] MCV 102 (H) 80 - 100 05/13/2022 [facility] fL 12:18 PM CDT [facility] MCH 31.6 26.0 - 05/13/2022 [facility] 34.0 pg 12:18 PM CDT [facility] MCHC 31.1 (L) 32.0 - 05/13/2022 [facility] 36.0 g/dL 12:18 PM CDT [facility] RDW 15.0 11.5 - 05/13/2022 [facility] 15.5 % 12:18 PM CDT [facility] PLATELET COUNT 178 140 - 440 05/13/2022 [facility] thou/ mm 12:18 PM CDT [facility] MPV 8.4 6.5 - 11.0 05/13/2022 [facility] fL 12:18 PM CDT [facility] NRBC 0.0 % 05/13/2022 [facility] 12:18 PM CDT [facility] ABS NRBC 0.0 thou /cu 05/13/2022 [facility] 12:18 PM CDT [facility] Specimen Anatomical Collection Method / Collection Time Recei thony Time (Source) Location / Volume Laterality Blood BLOOD SPECIMEN / Venipuncture / 05/13/2022 12:08 05/13 Unknown Unknown PM CDT 12:14 PM CDT Ricardo Sawyer MD HEMATOLOGY Performing Organization Address City/State/ZIP Code Phon e Number [facility] [address] [place] [address] CENTER (ABNORMAL) COMP METABOLIC PANEL (05/13/2022 12:08 PM CDT) [facility] Method Time Signature SODIUM 144 135 - 145 05/13/2022 [facility] mmol/L 12:39 PM CDT [facility] POTASSIUM 3.4 (L) 3.5 - 5.0 05/13/2022 [facility] mmol/L 12:39 PM CDT [facility] CHLORIDE 102 98 - 110 05/13/2022 [facility] mmol/L 12:39 PM CDT [facility] CO2,TOTAL 32 (H) 21 - 31 05/13/2022 [facility] mmol/L 12:39 PM CDT [facility] ANION GAP 10 5 - 18 05/13/2022 [facility] 12:39 PM CDT [facility] GLUCOSE 117 (H) 65 - 100 05/13/2022 [facility] mg/dL 12:39 PM CDT [facility] CALCIUM 8.8 8.5 - 10.5 05/13/2022 [facility] mg/dL 12:39 PM CDT [facility] BUN 46 (H) 8 - 25 05/13/2022 [facility] mg/dL 12:39 PM CDT [facility] CREATININE 3.82 (H) 0.72 - 05/13/2022 [facility] 1.25 mg/dL 12:39 PM CDT [facility] BUN/CREAT RATIO 12 10 - 20 05/13/2022 [facility] 12:39 PM CDT [facility] ALBUMIN 2.8 (L) 3.2 - 4.6 05/13/2022 [facility] g/dL 12:39 PM CDT [facility] PROTEIN,TOTAL 5.9 (L) 6.0 - 8.0 05/13/2022 [facility] g/dL 12:39 PM CDT [facility] GLOBULIN 3.1 2.0 - 3.7 05/13/2022 [facility] g/dL 12:39 PM CDT [facility] A/G RATIO 0.9 (L) 1.0 - 2.0 05/13/2022 [facility] 12:39 PM [facility] BILIRUBIN,TOTAL 0.4 0.2 - 1.2 05/13/2022 [facility] mg/dL 12:39 PM [facility] ALK PHOSPHATASE 189 (H) 50 - 136 05/13/2022 [facility] IU/L 12:39 PM [facility] ALT (SGPT) 10 8 - 45 05/13/2022 [facility] IU/L 12:39 PM [facility] AST (SGOT) 22 2 - 40 05/13/2022 [facility] IU/L 12:39 PM [facility] eGFR 15 (L) >90 05/13/2022 [facility] mL/min/1.7 12:39 PM [place] [address] CENTER Comment: As of 2021, eGFR is [...] Organization Address City/State/Z[place] [address] CENTER (ABNORMAL) INR,POCT (05/06/2022 1:54 PM CDT) athologist Signature INR 2.1 (H) <1.3 05/06/2022 [facility] 1:59 PM CDT [facility] Specimen Anatomical Collection Method Collection Time Receive d Time (Source) Location / / Volume Laterality Blood BLOOD SPECIMEN / 05/06/2022 1:54 PM 05/06 1:59 Unknown CDT PM CDT Narrative [facility] - 2021 1:59 PM CDT ?Therapeutic Range 2.0-3.0 for most anticoagulated patients 2.5-3.5 or 4.0 for high risk patients Kush Doran MD LABORATORY Performing Organization Address City/State/ZIP Code Phon e Number [facility] [address] [place] [address] from Last 3 Months Insurance Payer Benefit Plan / Subscriber ID Effective Phone Address T ype Group Dates MEDICARE PART A - HB MEDICARE PART [id number] 2006-Prese ATTN: CLAIMS USE ONLY A HB ONLY nt [address] [place] [address] 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
--- OUTSIDE RECORDS SUMMARY | 2022-07-22 10:59 | XMS_ITS ---
:1940 Author Organization [facility] Address [address] [place] [address] Care Team Providers Name Role Phone Elsewhere, Pcp Primary Care Provider Unavailable Procedures Procedure Name [...] the results section. 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 Deyvi Coe M.D. IMMike FLUOROSCOPY PROCEDURES (ABNORMAL) Renal Function Panel (06/07/2022 [...] M.D. LAB BLOOD ADD-ON Performing Organization Address City/State/[facility] Code Phon e Number [facility] - [address] [place] [phone] [facility] [address] Laboratories-[facility] 200 [facility] (ABNORMAL) CBC with Differential, Blood (06/07/2022 4:45 AM CDT)Only the most recent of2 resultswithin the time period is included. [facility] gist Method Time Signature Hemoglobin 10.3 [...] M.D. LAB BLOOD ADD-ON Performing Organization Address City/[facility] Phon e Number [facility] [address] (ABNORMAL) Hemoglobin (06/06/2022 4:16 PM CDT) athologist [facility] Hemoglobin 11.7 (L) 13.2 - 16.6 06/06/2022 DTL g/dL 4:44 PM CDT Specimen Anatomical Collection Method Collection Time Receive d Time (Source) Location / / Volume Laterality Blood (Blood, 06/06/2022 4:16 PM 06/06/20 4:38 Venous) CDT PM CDT Dariel Manzanares M.D. LAB BLOOD ADD-ON Performing Organization Address City/[facility] Phon e Number [address] Surgical Pathology (06/06/2022 12:56 PM CDT) Component Value Ref Test Analysis Performed Pathologis t Range Method Time At [facility] 06/08/2022 DTL 12:51 PM CDT Participated in Sarina Chavez 06/08/2022 DTL the D.O. -Pathology 12:51 PM Interpretation Fellow [...] en toto in cassette A1. ??Grossed by CGL. Addendum GMS stain (A1) shows a few yeast-forms and hyphae, 06/10/2022 DTL morphologically consistent with Mirna species. 11:30 AM CMV and HSV I+II immunostains (A1) are negative. CDT Signed by Martin Merino M.D., Ph.D. 06/10/2022 11:30 AM This test was developed using an analyte specific reagent. Its performance characteristics were determined by [facility] in a manner consistent with CLIA [...] Organization Address City/State/ZIP Code Phon e Number [facility] - [address] [place], [place] [address] [facility] [place] [address] [facility] [address] LDA ANE ENDOTRACHEAL AIRWAY (06/06/2022 12:38 PM CDT) Narrative José Luis Jauregui APRN, ECONOMIC DEVELOPMENT MANAGER - 06/06/2022 1 2:38 PM CDT José [...] ETT location: oral VL device: glide scope [place] scope blade size: 4 Adult tube size: [...] Organization Address City/State/ZIP Code Phon e Number [facility] NA Upper GI Endoscopy (06/06/2022 12:06 PM [...] stomach. ? - Normal examined duodenum. Narrative [employer] - 06/06/2022 1:11 PM CDT Saul [...] ? - Referral to Esophageal Clinic w [facility] pre-scheduled esophageal manometry, ? upper endoscopy [...] M.D. GI PROCEDURE ORDERABLES Performing Organization Address City/[facility]/ZIP Code Phon e Number [employer] NA Prothrombin Time (PT) (06/06/2022 4:23 [...] Organization Address City/State/ZIP Code Phon e Number [facility] - 200 [place], [place] [address] [facility] [address] [facility] 200 [facility] ECG 12 Lead (06/05/2022 11:13 PM CDT) P athologist Signature Ventricular Rate 89 BPM MUSE ECG/Min CA Interval 160 ms MUSE QRSD Interval 128 ms MUSE QT Interval 384 ms MUSE QTC Interval 467 ms MUSE P [place] 70 degrees MUSE R [place] 30 degrees MUSE T Wave [place] 54 degrees MUSE Specimen Anatomical Collection Method [...] CBC without Differential (06/05/2022 11:06 PM CDT) [facility] gist Method Time Signature Hemoglobin 12.7 (L) 13.2 [...] Organization Address City/State/ZIP Code Phon e Number [facility] - [address] [place], [place] [address] [facility] [place] [address] [facility] [address] Type and Screen (with reflex Antibody ID) (06/05/2022 11:06 PM CDT) [facility] Method Time Signature ABORh O Pos Not 06/05/2022 STRM applicable 11:34 PM CDT Antibody Negative Negative 06/05/2022 STRM Screen 11:47 PM CDT Type & Screen 06/08/2022 06/05/2022 STRM Expiration 23:59 11:34 PM CDT Testing [place] DEFAULT 06/05/2022 STRM Location 11:15 PM CDT Specimen Anatomical Collection Method Collection Time Receive d Time (Source) Location / / Volume Laterality Blood (Blood, 06/05/2022 11:06 06/05/2022 Venous) PM CDT 11:15 PM CDT Orlin Deshpande M.D. LAB BLOOD BANK TEST ORDERABL ES Performing Organization Address City/State/ZIP Code Phon e Number [facility] - [address] [place] [address] [facility] [place] [address] [facility] [address] from Last 3 Months
--- OUTSIDE RECORDS SUMMARY | 2022-07-22 10:59 | XMS_ITS ---
:1940 Author Organization [facility], NA DOCUMENT DISCLAIMER The information in the [facility] Continuity of Care Document represents a summary [...] 100 Take by mouth 1 tablet ORAL September 15, Active mg once a day 2021 amoxicillin 500 Take by mouth 4 capsule ORAL September 15, Active mg once a day as 2021 directed calcitriol 0.25 Take by mouth 1 capsule ORAL June 13, Active mcg three times a 2021 week Carafate 1 gram Take by mouth 1 tablet ORAL June 27, Active three times a 2021 day as directed Dialyvite 100-1 by mouth once a 1 [...] tartrate 25 mg twice a day 2021 nystatin Take by mouth 5 ml ORAL June 22, Active 100,000 unit/mL three times a 2021 day ondansetron 4 Take by mouth 1 tablet ORAL June 08, Active mg every six hours 2021 as needed Protonix 40 mg Take by mouth 2 tablet ORAL June 22, Active once a day 2021 torsemide 20 mg Take by mouth 1 tablet ORAL December 22, 2021 Active once a day VITAL SIGNS Post-Treatment Vital Signs Vital Sign Value Date / Time Blood Pressure-sitting 116/68 mmHg July 22, 2022 12:00 AM Heart Rate 73 beats per minute July 22, 2022 12 :00 AM Temperature 97.5 deg. F July 22, 2022 12 :00 AM Weight Vital Sign Value Date / Time Estimated Dry Weight 72.5 kg June 01, 2022 11 :59 PM Post-Dialysis 72.02 kg July 22, 2022 12 :00 AM Other Other Value Date / Time Height 172 cm September 14, 2021 12: 00 AM HEALTH CONCERNS Tuberculosis Testing TST Date Administered TST Date Read TST Result 09/14/2021 09/16/2021 Negative (<5) mm LAB RESULTS Hematology Result Type Result Value Relevant Reference Interpretation Date Range RBC 3.49 mill/mcL Males: 4.70 - 6.10 Low June 22, mill/mcL Females: 2021 4.20 - 5.40 mill/mcL WBC (No Diff) 4.67 1000/mcL 4.8-10.8 thous/mcL Low Novembe r 2021 JUAN ANTONIO 1.5 % 0.0-4.0% - June 22, 2022 Basophils 0.6 % 0.0-1.5% - June 22, 2022 Eosinophil 9.1 % 0.0-7.0% High June 22, 2022 Transferrin Sat. 11 % 20-55% Low June 22 , (Calc) 2021 Iron 29 mcg/dL Females: 30-160 Low June 22, mcg/dL Males: 2021 45-160 mcg/dL UIBC (Calc) 225 mcg/dL 155-355 mcg/dL - June 22, 2022 TIBC 254 mcg/dL 185-515 mcg/dL - June 22, 2022 Monocytes 6.6 % 3.0-10.0% - June 22, 2022 Lymphocytes 9.7 % 19.0-48.0% June 22, 2022 Neutrophils 72.6 % 40.0-75.0% - June 22, 2022 RDW 14.8 % No Reference range High June 22, 2021 MCHC 32.5 g/dL 30 - 36 g/dL - June 22, 2022 MCH 31.8 pg 27 - 31 pg/cell High June 22, 2022 HCT 34.1 % Males: 42 - 52% Low June 22, Females: 37 - 47% 2021 Hemoglobin x 3 33.3 % Male: 14.0 - 18.0 June 22, g/dL; Female: 2021 12.0-16.0 g/dL HGB 11.1 g/dL Males: 14.0 - 18.0 Low June 22, g/dL Females: 12.0 2021 - 16.0 g/dL Metabolic/Renal Result Type Result Value Relevant Reference Interpretation Date Range Chloride 104 mEq/L 96-108 mEq/L - June 22 Bicarbonate 30 mEq/L 22-29 mEq/L - June 22 Creatinine, Serum 3.30 mg/dL 0.6-1.3 mg/dL High June 22, 2022 BUN/Creat Ratio 10.0 -20 - June 22, 2022 Sodium 142 mEq/L 136-145 mEq/L - June 22 Potassium 3.9 mEq/L 3.5-5.1 mEq/L - June 22 BUN 33 mg/dL 6-19 mg/dl High June 22 Bone/Mineral Result Type Result Value Relevant Reference Interpretation Date Range Calcium, Total 8.9 mg/dL 8.4-10.2 mg/dL - June Phosphorus 3.5 mg/dL 2.6-4.5 mg/dL - June 22 Corrected Ca x P 34 < 55 - June Product Ca x P Product 31 < 55 - June 22, 2022 Liver/Nutrition Result Type Result Value Relevant Reference Interpretation Date Range Albumin (BCG) 3.1 g/dL 3.5-5.2 g/dL Low June 22 Trace Elements Result Type Result Value Relevant Reference Interpretation Date Range Aluminum 13 mcg/L 0-10 mcg/L High June 22 Infectious Diseases Result Type Result Value Relevant [...] 01, 2022 Frequency 7X Week Treatment Days MonTueWedThuFriSatSun Dialysis Machine Alcorn Estimated Dry Weight 72.5 kg Calcium Content [...] Dialysis Access Meds-ent ered by Solution patient July 22 of 1 - Dextrose 1.5% Peritoneal Leigh lysis-PD Catheter-Double Cuff Coiled, Right Upper Quadrant of Abdomen - 2021 Access Placed on 2020 Vitals Time Weight BP Heart Rate Temperature Blood Sugar July 22, 2022 72.02 kg 116/68 mmHg 73 beats per 97.5 deg. F - (AM) minute [facility] Date Exchanges Fill Volume Exchange Dialysis Access Meds-ent ered by Solution patient July 21 of 1 - Dextrose 1.5% Peritoneal Leigh lysis-PD Catheter-Double Cuff Coiled, Right Upper Quadrant of Abdomen - 2021 Access Placed on [facility] 2020 Vitals Time Weight BP Heart Rate Temperature Blood Sugar July 21, 2022 72.02 kg 129/75 mmHg 86 beats per 97.5 deg. F - (AM) minute [facility] Date Exchanges Fill Volume Exchange Dialysis Access Meds-ent ered by Solution patient July 20 of 1 - Dextrose 1.5% Peritoneal Leigh lysis-PD Catheter-Double Cuff Coiled, Right Upper Quadrant of Abdomen - 2021 Access Placed on [facility] 2020 Vitals Time Weight BP Heart Rate Temperature Blood Sugar July 20, 2022 72.29 kg 112/80 mmHg 86 beats per 97.5 deg. F - (AM) minute
--- OUTSIDE RECORDS SUMMARY | 2022-07-22 10:59 | XMS_ITS | Encounter Summary ---
:1940 Author Organization [facility] Address [address] [place] [address] Care Team Providers Name Role Phone Elsewhere, Pcp Primary Care Provider Unavailable Encounter Details Date Type Department Care Team Description 06/23/2022 Documentation Division of Gastroenterology Jun Coe, in [facility] bret Tsang [address] [facility] [address] [place] [address] [place], [place] [phone] Social History Tobacco Use Types Packs/Day Years [...] How often do you attend rastafarian or shinto More than 4 time s [...] documented as of this encounter Progress Notes Deyvi Coe M.D. - 06/23/2022 4:43 PM CDT I called the patient to relay the results of his esophagram. This demonstrated achalasia with moderate esophageal dilation. At 1 min, the residual barium column measured 10.6 cm in height and 3.2 cm indiameter. At 5 minutes, the residual column measured 7.6 cm in height and up to 3.1 cm in diameter. A 13 mm barium tablet passed promptly into the stomach. We discussed these changes were consistent with achalasia. We discussed that given his long standingsymptoms and prior interventions including surgeries x2, I would like to discuss him at our multidisciplinary esophageal conference next week. I will then touch base with him about the group's recommendations. It is likely that he will need an esophageal manometry study and EGD with EndoFlip and theseare scheduled in August 2022. We will try to move these up, if needed, to an earlier appointment, if availability allows. documented in this encounter Plan of Treatment Upcoming Encounters Date Type Specialty Care Team Description 09/01/2022 Appointment Gastroenterology and Hepatology Lyric Coe M.D. [address] [place] [phone] (Wo rk) 09/01/2022 Appointment Gastroenterology and Hepatology Maurice Herrera M.D., Ph.D. [address] [place] [phone] (Wo rk) 09/02/2022 Appointment Gastroenterology and Hepatology Maurice Herrera M.D., Ph.D. [address] [place] [phone] (Wo rk) documented as of this encounter Visit Diagnoses Not on filedocumented in this encounter Care Teams Customer Consultant Relationship Specialty Start Date End Date Elsewhere, Pcp PCP - General Internal Medicine 06/05/22 documented as of this encounter
--- OUTSIDE RECORDS SUMMARY | 2022-07-22 10:59 | XMS_ITS | Encounter Summary ---
:1940 Author Organization [facility] Address [address] [place] [address] Care Team Providers Name Role Phone Elsewhere, Pcp Primary Care Provider Unavailable Reason for Referral Outpatient (Routine) - Authorized Specialty Diagnoses / Procedures Referred By Contact Refer red To Contact Diagnoses Dysphagia Gastro-Esophageal Reflux Disease With Esophagitis Without Bleeding Deyvi Coe M.D. [facility] Procedures Esophageal pH Testing [address] [place] [phone] Referral ID Status Reason Start Date Expiration Date Visits V isits Requested Authorized [id number] Authorized 06/29/2022 06/29/2023 1 1 DEVELOPER WITH ANGULAR JS Encounter Details Date Type Department Care Team Description 06/29/2022 Orders Only Division of Deyvi Coe Dysphagia (Bridgett snyder Dx); Gastroenterology eryn Meehan M.D. Gastro-Esophageal Reflux Disease With Es ophagitis Without Bleeding [place], [place] [address] [facility] [address] [place] [phone] Social History Tobacco Use Types Packs/Day Years [...] How often do you attend episcopalian or yazidism More than 4 time s per year 04/11/2022 services? Do you belong to any clubs or organizations Yes 04/11/2022 such as episcopalian groups, unions, fraPlanet Ivy or athletic groups, or school groups? How [...] Gastroenterology and Hepatology Lyric Coe M.D. 200 [place] [phone] (Gary hicks) 09/01/2022 Appointment Gastroenterology and Hepatology Maurice Herrera M.D., Ph.D. [address] [place] [phone] (Gary hicks) 09/02/2022 Appointment Gastroenterology and Hepatology Maurice Herrera M.D., Ph.D. [address] [place] [phone] (Gary hicks) Scheduled Orders Name Type Priority Associated Diagnoses Order S chedule Esophageal pH Testing GI Routine Dysphagia Expected: 06/29/2022 Gastro-Esophageal Reflux (Ap proximate), Expires: Disease With Esophagitis 04/2024 Without Bleeding documented as of this encounter Visit Diagnoses Diagnosis Dysphagia - Primary Gastro-Esophageal Reflux Disease With Es ophagitis Without Bleeding documented in this encounter Care Teams Research Laboratory Technician Relationship Specialty Start Date End Date Elsewhere, Pcp PCP - General Internal Medicine 06/05/22 documented as of this encounter
--- OUTSIDE RECORDS SUMMARY | 2022-07-22 10:59 | XMS_ITS | Encounter Summary ---
:1940 Author Organization [facility] Address [address] [place] [address] Care Team Providers Name Role Phone Elsewhere, Pcp Primary Care Provider Unavailable Encounter Details Date Type Department Care Team Description 06/29/2022 Documentation Division of Gastroenterology Jun Coe, in [facility] bret Tsang [address] [facility] [address] [place] [address] [place], [place] [phone] Social History Tobacco Use Types Packs/Day Years [...] How often do you attend orthodox or jainism More than 4 time s [...] encounter Progress Notes Deyvi Coe M.D. - 06/29/2022 5:01 PM CST I called the patient to review the discussion from a recent multidisciplinary conference with Gastroenterology and thoracic surgeons. We reviewed the patient's latest esophagram. It appears that mild there was a barium column, the barium tablet promptly placed into the stomach. It appeared that the lower esophageal sphincter was still allowing passage of barium. Based on these results, it was recommended that he undergo additional tests. We will obtain an EGD with Endo flip, esophageal manometry, and pH impedance study on PPI therapy. He should continue on twice daily pantoprazole. He is taking this on an empty stomach. Nephrology consult reviewed his records regarding the safety of sucralfate. It appears that this is not a good long-term option given the propensity for side effects in the setting of end-stage renal disease. As such, we will request that he stop taking sucralfate. He would like to also stop this if possible. His home frog catcher recently checked an aluminum level and this was somewhat elevated at 13 with upper limit of normal at 10. He denied any coffee-ground emesis, hematemesis, melena, or hematochezia at this time. He has been off warfarin for the last 1 month. Given that we will be stopping the sucralfate, we will initiate famotidine 20 mg at bedtime to assist with the acid suppression. I will plan to see the patient back after all the above testing is complete. In the interim, we discussed that if he has an episode of upper GI bleeding, he should present to the local ED for further care. I also provided him my phone number in case they have any additional questions. The above was discussed with Dr. Pandey was in agreement with the plan outlined above. 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 [address] [place] [phone] (Wo rk) 09/01/2022 Appointment Gastroenterology and Hepatology Maurice Herrera M.D., Ph.D. [address] [place] [address] [phone] (Wo rk) 09/02/2022 Appointment Gastroenterology and Hepatology Maurice Herrera M.D., Ph.D. [address] [place] [address] [phone] (Wo rk) documented as of this encounter Visit Diagnoses Not on filedocumented in this encounter Care Teams Raiser Helper Relationship Specialty Start Date End Date Elsewhere, Pcp PCP - General Internal Medicine 06/05/22 documented as of this encounter
--- OUTSIDE RECORDS SUMMARY | 2022-07-22 10:59 | XMS_ITS | Encounter Summary ---
:1940 Author Organization [facility] Address [address] [place] [address] Care Team Providers Name Role Phone Elsewhere, Pcp Primary Care Provider Unavailable Reason for Referral Medication Prior Authorization - Closed Specialty Diagnoses / Procedures Referred By Contact Refer red To Contact Sonya Mathew M.D. [address] [place] [phone] Referral ID Status Reason Start Date Expiration Date Visits Requ ested Visits Authorized [id number] Closed 1 1 ETING CONTENT SPECIALIST Reason for Visit Reason Comments Med Refill Encounter Details Date Type Department Care Team Description 06/24/2022 Refill [facility] Allison Sheehan, Med Refill [facility] Harinder Tsang [facility] [address] [place] [address] [address] [place] [address] [place] [address] [phone] Social History Tobacco Use Types Packs/Day Years [...] How often do you attend quaker or buddhism More than 4 time s [...] Gastroenterology and Hepatology Lyric Coe M.D. [address] [place] [phone] (Wo rk) 09/01/2022 Appointment Gastroenterology and Hepatology Maurice Herrera M.D., Ph.D. [address] [place] [phone] (Wo fabiola) 09/02/2022 Appointment Gastroenterology and Hepatology Maurice Herrera M.D., Ph.D. [address] [place] [phone] (Wo fabiola) documented as of this encounter Visit Diagnoses Not on filedocumented in this encounter Care Teams Employee Benefits Insurance Agent Relationship Specialty Start Date End Date Elsewhere, Pcp PCP - General Internal Medicine 06/05/22 documented as of this encounter
--- OUTSIDE RECORDS SUMMARY | 2022-07-22 11:00 | XMS_ITS | Encounter Summary ---
:1940 Author Organization [facility] Address [address] [place] [address] Care Team Providers Name Role Phone Elsewhere, Pcp Primary Care Provider Unavailable Encounter Details Date Type Department Care Team Description 06/07/2022 Clinical Communication Division of [facility], Gastroenterology in Maurice Mendes M.D., [place], [place] Ph.D. [address] [facility] [address] [place] [address] [place], [place] [phone] Social History Tobacco Use Types Packs/Day Years [...] How often do you attend yazidism or sabianism More than 4 time s [...] Gastroenterology and Hepatology Lyric Coe M.D. [address] [place] [phone] (Wo rk) 09/01/2022 Appointment Gastroenterology and Hepatology Maurice Herrera M.D., Ph.D. [address] [place] [phone] (Wo rk) 09/02/2022 Appointment Gastroenterology and Hepatology Maurice Herrera M.D., Ph.D. [address] [place] [phone] (Wo rk) documented as of this encounter Visit Diagnoses Not on filedocumented in this encounter Care Teams Bead Forming Machine Set Up Operator Relationship Specialty Start Date End Date Elsewhere, Pcp PCP - General Internal Medicine 06/05/22 documented as of this encounter
--- OUTSIDE RECORDS SUMMARY | 2022-07-22 11:00 | XMS_ITS | Encounter Summary ---
:1940 Author Organization [facility] Address [address] [place] [address] Care Team Providers Name Role Phone Elsewhere, Pcp Primary Care Provider Unavailable Reason for Visit Reason Comments GI Bleeding Auth/Cert Specialty Diagnoses / Procedures Referred By Contact Refer red To Contact Diagnoses Hemorrhage Gastrointestinal coffee ground emesis Procedures ADMIT TO INPATIENT Referral ID Status Reason Start Date Expiration Date Visits Requ ested Visits Authorized [id number] 1 1 Encounter Details Date Type Department Care Team Description 06/05/2022 - Hospital Encounter [facility] Ari Botello M.D. [address] [place] [address] Hemorrhage 06/07/2022 [facility], Lyndsey Garner M.D. [address] [place] [address] [facility], (Primary Dx) [facility], Sixth Floor [address] [place] [phone] Social History Tobacco Use Types Packs/Day Years [...] How often do you attend mormon or zoroastrian More than 4 time s per year [...] PM CDT DISCHARGE SUMMARY BRIEF OVERVIEW Hospital: [facility] Discharge Provider: Lyndsey Haque M.D. 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 Ondansetron (By mouth, Into the mouth) (Polish)Sucralfate (By mouth) (Polish) documented in this encounter Medications at Time [...] Monday metoprolol tartrate Take 12.5 mg by 0 [...] hours as needed for nausea or vomiting. torsemide (DEMADEX) 20 mg Take 1 tablet (20 0 tablet mg total) by mouth daily. docusate sodium (COLACE) Take 100 mg by 0 100 mg capsule mouth daily. gentamicin (GARAMYCIN) 0.1 APPLY TO EXIT SITE 0 1 % cream DAILY pantoprazole (PROTONIX) 40 Take 40 mg by mouth 0 06/04/2022 mg EC tablet every morning before breakfast. sucralfate (CARAFATE) 100 Take 10 mL (1 g 1200 mL 0 06/0707/17/2022 mg/mL suspension total) by mouth every 6 (six) hours. documented as of this encounter Progress Notes Nicole Marley, DWIGHT, C.N.P., D.N.P. - 06/07/2022 3:17 PM CDT NEPHROLOGY [facility] CONSULT SERVICE - PROGRESS NOTE Hospital Day [...] and it has been reviewed with the construction consultant. From our standpoint we would be okay with the sucralfate short term. I will call his business and financial counsel in the [facility]. I have reviewed his discharge medications. For questions or concerns, please contact the Nephrology [facility] service at [phone]. Lyndsey Haque M.D. - 06/07/2022 11:16 AM [...] L.R.T. - 06/07/2022 1:34 AM CDT 06/06/22 4607 BPAP/CPAP Therapy BPAP/CPAP Interface Full face mask [...] well browned turk angelito and liquifying with chemical blender. He also consumes ice cream/ice cream bar, [...] 1700 calories/day Method to Estimate Energy Needs: Marc-Bristow (Basal + 20%) Weight Used for Equation [...] about patient's nutritional care please contact pager [phone] on weekdays or [phone] on weekends/holidays. Monica Raya, Pharm.D., R.Ph. - [...] week. He has an appointment with his special order jeweler on Monday to discuss warfarin resumption. Prior [...] reports he has an appointment with his special order jeweler Monday to discuss warfarin plans. Monica Raya [...] to our service after being transferred to [facility] from outside hospital for coffee-ground emesis. [...] stasis ulcers. He was transferred to the [facility] ED from OSH for coffee ground emesis. [...] time which were later stopped by his business and financial counsel. He then had another episode of coffeeground [...] fib. His sucralfate was stopped by his business and financial counsel a few days ago. The patient began having multiple episodes of coffee-ground emesis yesterday. He then presented to the [place] ED, where he was tachycardic with HR 107 but was otherwise was stable on presentation. Labs were remarkable for hemoglobin 13.8, WBC 8.48, INR 1, Na 140, K 3.9, Cl 97, HCO3 35. CT abdomen did not show an acute bleed but did note patulous fluid in the esophagus. Due to lack of capacity foradmission, he was transferred to [facility] ED. On arrival to [facility], he was hemodynamically stable. Labs wereremarkable for [...] intact. No evidence of disorganizedthinking. Reliable history adult live in caregiver. DIAGNOSTICS I have reviewed the labs and [...] the [facility] service pager at [phone] with any questions. Lorrie Bo MD Internal [...] has been staffed with Dr. Franco, Nephrology construction consultant. For questions or concerns, please contact Nephrology B BACK HOE OPERATOR/PA pager ([phone]). documented in this encounter Nursing Notes Ramona [...] agree with the note of the resident. LABORATORY SECRETARY NOTE: SHERI Seen with Patient is an 81-year-old male with a history of prior ulcer disease and prior GI bleed as well as end-stage renal disease on peritoneal dialysis who presented to [facility] Department for multiple episodes of coffee-ground [...] to our emergency department for admission to [facility] and determination of appropriate level of [...] 2341 Hemorrhage Gastrointestinal Ari Botello M.D. 06/05/22 2574 Ari Botello M.D. 06/06/22 0412 Orlin Deshpande [...] or fatigued. Was seen in the at [place] in the emergency department for this issue. He was subsequently transferred to [facility] after he is worked up there. His hemoglobin was around 13.[address] did not show any acute robert bleeds but there was some patulous fluid in the esophagus. He was transferred via EMS remained stable throughout the transfer. He is not having any acute issues and now receiving medications throughout the transfer. At [facility] he was complaining of little bit of [...] Course as of 06/05/222334 Sun Jun 05, 20229 CBC without Differential(!): Hemoglobin 12.7(!) Hematocrit 39.1 Erythrocytes 3.99(!) MCV 98.0(!) RBC Distrib Width 14.4 Platelet Count 143 White Blood Cell Count 9.0 CBC shows hemoglobin 12.7. He had hemoglobin of 13.8 previous CBC done at 7:00 p.m. judy from an outside hospital. Final Diagnoses: as of 06/05/222334 Hemorrhage Gastrointestinal Orlin Deshpande M.D. Resident 06/06/22 0101 Mishel Pacheco R.N., ELI - 06/05/2022 10:42 PM CDT Pt presents as a hospital transfer for evaluation of GI bleeding. Pts vitals stable. No change enroute. Electronically signed by: Mishel Pacheco R.N., ELI 06/05/22 10:43 PM CDT' Mishel Pacheco R.N., ELI 06/05/22 3510 documented in this encounter Miscellaneous Notes Documentation Clarification - Allison Mathew M.D. - 06/07/2022 3:21 PM CDT PROVIDER RESPONSE TEXT: To clarify, the appropriate diagnosis supported by the clinical indicators: Moderate Malnutrition treated with Medical food supplement, Vitamin and mineral supplements, Providecounseling strategies to apply nutrition knowledge, Increase nutrient intake with small, frequent meals and/or snacks, Assessoral intake with calorie count. <LCI> QUERY TEXT: DOCUMENTATION CLARIFICATION REQUEST Please clarify/specify the appropriate diagnosis supported in the clinical indicators below. To support the diagnosis please clarify the acuity and treatment plan in your documentation Moderate Malnutrition treated with Medical food supplement, Vitamin and mineral supplements, Providecounseling strategies to apply nutrition knowledge, Increase nutrient intake with small, frequent meals and/or snacks, Assessoral intake with calorie count. Other (explain) Clinically unable to determine (explain) Clinical Indicators/Risk Factors/Treatment: 81 yo male admitted with recurrent upper GI bleeds secondary to esophageal ulcers, which represents most likely source of current bleed. RD findings on 06/06, Derek: Malnutrition Criteria: Average estimated Intake: No Change (Patient likely meets his estimated calorie goal with daily intake but likely deficient in protein in setting of modified diet.) Weight Loss: (6% loss over the past 6 months.) Body Fat: Normal Muscle Mass: Mild Loss Nutritional Status: Non-severe (moderate) Malnutrition Malnutrition in the Context of: Chronic Illness Nutrition Intervention: Interventions: Medical food supplement, Vitamin and mineral supplements, Provide counseling strategies to apply nutrition knowledge, Increase nutrient intake with small, frequent meals and/or snacks, Assess oral intake with calorie count. Recommendations: When ready to advance, order blenderized full liquid diet. 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 Thank you, CHANCE Mayer Clinical Documentation Beam Press Operator Query created by: CHANCE Mayer 06/10/2022 01:20 PM EDT </LCI> Hospital Course - Chicobrandynrain Amarilis - 06/07/2022 11:00 AM CDT Mr. David [...] Gastroenterology and Hepatology Lyric Coe M.D. [address] [place] [phone] (Gary hicks) 09/01/2022 Appointment Gastroenterology and Hepatology Maurice Herrera M.D., Ph.D. [address] [place] [phone] (Gary hicks) 09/02/2022 Appointment Gastroenterology and Hepatology Maurice Herrera M.D., Ph.D. [address] [place] [phone] (Wo rk) documented as of this encounter [...] Address City/State/ZIP Code Phon e Number [facility] - [facility] [place], [place] [address] [facility] [place] [address] [facility] [address] [facility] (ABNORMAL) CBC with Differential, Blood (06/07/2022 4:45 AM CDT) [facility] gist Method Time Signature Hemoglobin 10.3 [...] Laterality Blood (Blood, 06/07/2022 4:45 AM 06/07/20 22 5:13 Venous) CDT AM CDT Dariel Manzanares M.D. LAB BLOOD ADD-ON Performing Organization Address City/State/ZIP Code Phon e Number [facility] - [address] [place] [address] [phone] [facility] [place] [address] [facility] [address] [facility] (ABNORMAL) Hemoglobin (06/06/2022 4:16 PM CDT) athologist Signature Hemoglobin 11.7 (L) 13.2 - 16.6 06/06/2022 DTL g/dL 4:44 PM CDT Specimen Anatomical Collection Method Collection Time Receive d Time (Source) Location / / Volume Laterality Blood (Blood, 06/06/2022 4:16 PM 06/06/20 4:38 Venous) CDT PM CDT Dariel Manzanares M.D. LAB BLOOD ADD-ON Performing Organization Address City/State/ZIP Code Phon e Number [facility] - [address] [place], [place] [address] [facility] [place] [address] [facility] [address] Surgical Pathology (06/06/2022 12:56 PM CDT) [...] en toto in cassette A1. ??Grossed by [facility]. Addendum GMS stain (A1) shows a few yeast-forms and hyphae, 06/10/2022 DTL morphologically consistent with Mirna species. 11:30 AM CMV and HSV I+II immunostains (A1) are negative. CDT Signed by Martin Merino M.D., Ph.D. 06/10/2022 11:30 AM This test was developed using an analyte specific reagent. Its performance characteristics were determined by [facility] in a manner consistent with CLIA [...] Address City/State/ZIP Code Phon e Number [facility] - [address] [place], [place] [address] [facility] [place] [address] [facility] [address] Upper GI Endoscopy (06/06/2022 12:06 PM CDT) Specimen (Source) Anatomical Collection Method Collection Time Re ceived Time Location / / Volume Laterality 06/06/2022 12:06 PM CDT Impressions [employer] - 06/06/2022 1:11 PM CDT Post-op [...] stomach. ? - Normal examined duodenum. Narrative [employer] - 06/06/2022 1:11 PM CDT Saul [...] ? - Referral to Esophageal Clinic w [facility] pre-scheduled esophageal manometry, ? upper endoscopy [...] Number [employer] NA (ABNORMAL) CBC with Differential, Blood (06/06/2022 4:23 AM CDT) [facility] Method Time Signature Hemoglobin 11.2 (L) [...] Address City/State/ZIP Code Phon e Number [facility] - 200 [place], [place] [address] [facility] [place] [address] [facility] [address] [facility] (ABNORMAL) Renal Function Panel (06/06/2022 4:23 AM [...] Address City/State/ZIP Code Phon e Number [facility] - [address] [place], [place] [address] [facility] [place] [address] [facility] [address] Prothrombin Time (PT) (06/06/2022 4:23 AM CDT) [...] M.D. LAB BLOOD ADD-ON Performing Organization Address City/[facility]/ZIP Code Phon e Number [facility] - [address] [place] [address] [address] [facility] [place] [address] [facility] 200 [facility] ECG 12 Lead (06/05/2022 11:13 PM CDT) P athologist Signature Ventricular Rate 89 BPM MUSE ECG/Min IL Interval 160 ms MUSE QRSD Interval 128 ms MUSE QT Interval 384 ms MUSE QTC Interval 467 ms MUSE P [place] 70 degrees MUSE R [place] 30 degrees MUSE T Wave [place] 54 degrees MUSE Specimen Anatomical Collection Method [...] reflex Antibody ID) (06/05/2022 11:06 PM CDT) Patholo gist Method Time Signature [...] Address City/State/ZIP Code Phon e Number [facility] - [address] [place] [address] [place] [address] [facility] [address] (ABNORMAL) CBC without Differential (06/05/2022 11:06 PM CDT) [facility] gist Method Time Signature Hemoglobin 12.7 [...] Venous) PM CDT 11:12 PM CDT Orlin C Mahnke M.D. LAB BLOOD ADD-ON Performing Organization Address City/State/ZIP Code Phon e Number [facility] - [address] [place], [place] [address] [facility] [place] [address] [facility] [address] documented in this [...] 090 1 (Given - Provider: Dinah Valadez R.N.) 1002 (Given - Provider: Ramona rodrigez RBaileyNBailey) 100 mg, oral, Daily, First dose on Mon06/06/22 at 0900 calcitRIOL capsule 0.25 mcg (ROCALTROL) 0910 (Given - Provider: Dinah Valadez R.N.) 0.25 mcg, oral, 3 times weekly (Once per day on Mon), First dose on Mon06/06/22 at 0900 metoprolol tablet 12.5 mg (LOPRESSOR) 10 07 (Given - Provider: Dinah Valadez R.N.)2018 (Given - Provider: Nicole Draper R.N.) 1002 (Given - Provider: Ramona Reeves RNicholas) 12.5 mg, oral, 2 times daily, First dose (after last modification) on Mon06/06/22 at 0900 multivitamin renal failure 100-1 mg 1 tablet (DIALYVITE) 1801 (Given - Provider: Dinah Valadez R.N.) 1 tablet, oral, Daily with dinner, First dose on Mon06/06/22 at 1700, give after dialysis on dialysis days pantoprazole injection 40 mg (PROTONIX) 0631 (Given - Provider: Ej Virk RBaileyNBailey)1542 (Given - Provider: Dinah Valadez R.N.) 0642 (Given - Provider: Nicole Draper RNicholas) 40 mg, intravenous, 2 times daily before breakfast and dinner, First dose (after last modification) on Mon06/06/22 at 0700, Administer IV push over 2 minutes. Add 10 mL NS to 40 mg vial for a final concentration of 4 mg/mL. PD 1.5 % dextrose Low Ca 2.5 mEq/L- Mg 0 .5 mEq/L 2,000 mL dialysis solution (COMPLETED) 2216 (Given - Provider: Trang Owusu) intraperitoneal, Once, [...] .5 mEq/L 6,000 mL dialysis solution (COMPLETED) 2216 (Given - Provider: Mine Mcallister R .NBailey) intraperitoneal, Once, On Mon06/06/22 a t 1800, [...] 1542 (G iven - Provider: Dinah Valadez RBaileyNBailey)2017 (Given - Provider: Nicole Draper RNicholas) 0642 (Given - Provider: Nicole Draper RRadha.)1147 (Given - Provider: Ramona Reeves RBaileyNBailey) 1 g, oral, 4 times daily before meals an d bedtime, First dose on Mon06/06/22 at 1600, Administer on an empty stomach (1 hour before or 2 hours after eating). Dissolve in 50 cc of water PRN Medication Order 06/05/2022 06/06/2022 06/07/2022 ondansetron ODT disintegrating tablet 4 mg (ZOFRAN-ODT) 0141 (Given - Provider: Ej Virk R.NBailey) 4 mg, oral, Every 6 hours PRN, nausea, v omiting, Starting on Mon06/06/22 at 0112, When splitting ODT at bedside, handle with gloves and a pill splitter to prevent moisture contact. documented in this encounter Care Teams Senior Software Qa Analyst Relationship Specialty Start Date End Date Elsewhere, Pcp PCP - General Internal Medicine 06/05/22 documented as of this encounter
--- OUTSIDE RECORDS SUMMARY | 2022-07-22 11:00 | XMS_ITS | Encounter Summary ---
:1940 Author Organization [facility] Address [address] [place] [address] Care Team Providers Name Role Phone Elsewhere, [...] How often do you attend [employer] or voodoo More than 4 time s [...] Gastroenterology and Hepatology Lyric Coe M.D. [address] [place] [address] [phone] (Wo rk) 09/01/2022 Appointment Gastroenterology and Hepatology Maurice Herrera M.D., Ph.D. [address] [place] [address] [phone] (Wo rk) 09/02/2022 Appointment Gastroenterology and Hepatology Maurice Herrera M.D., Ph.D. [address] [place] [address] [phone] (Wo rk) documented as of this encounter [...] on filedocumented in this encounter Care Teams Evaluator Transfer Students Relationship Specialty Start Date End Date Elsewhere, Pcp PCP - General Internal Medicine 06/05/22 documented as of this encounter
--- OUTSIDE RECORDS SUMMARY | 2022-07-22 11:00 | XMS_ITS | Encounter Summary ---
:1940 Author Organization [facility] Address [address] [place] [id number] Care Team Providers Name Role Phone Elsewhere, Pcp Primary Care Provider Unavailable Reason for Visit Outpatient (Routine) - Closed Specialty Diagnoses / Procedures Referred By Contact Refer red To Contact Nutrition Diagnoses Achalasia Maurice Smyth M.D., Ph.D. [facility] [address] [place] [phone] Referral ID Status Reason Start Date Expiration Date Visits Requ ested Visits Authorized [id number] Closed 06/07/2022 06/07/2023 1 1 Encounter Details Date Type Department Care Team Description 06/16/2022 Clinical Support Department of Nutrition Maurice Etienne M.D., Ph.D. [address] [place] [phone] Achalasia in [place]Art[place] Joseph F, RDN, LD [address] [place] [phone] [phone] Social History Tobacco Use Types Packs/Day Years [...] How often do you attend jainism or episcopalian More than 4 time s per year 04/11/2022 services? Do you belong to any clubs or organizations Yes 04/11/2022 such as jainism groups, unions, [employer] or athletic groups, or school groups? How [...] - Inhaled Oxygen Concentration - - Weight 71.6 kg (157 lb 13.6 oz) 07/11/2022 9:41 AM MELT DOWN FURNACE OPERATOR Height 172 cm (5' 7.72) 07/11/2022 9:41 AM MELT DOWN FURNACE OPERATOR Body Mass Index 24.2 07/11/2022 9:41 AM MELT DOWN FURNACE OPERATOR documented in this encounter Progress Notes Ace Morris F, RDN, LD - 06/16/2022 9:00 AM CDT REASON FOR VISIT: Medical Nutrition Therapy for Achalasia . Referred by: Maurice Smyth M.D* PRESENT FOR VISIT: Patient NUTRITION ASSESSMENT: Mr. Castro presents to discuss nutrition interventions for achalasia and assure nutrition is optimal while following a Full Liqiud Diet (FLD). Reports dealing with this for entire life since 21 y/o. Reports no current issues with bowel habits. Has been following a liquid diet since November 2021 and experiencing weight loss (~20 kg loss). POEM surgery is a possibility, per patient. Also reports having another procedure to help with swallowing difficulties. Pertinent PMH: GERD, small bowel and stomach polyps, HTN and ESRD, Osteopenia, Gout Typical Diet Intake: Galvez's chicken noodle soup (1/2 can) blended for B, L and D (adds protein powder, 5 gram packets) DataCrowd - 30 g PRO, 400 kcal but hard to drink a lot Creamsicles/ popsicles Water - smaller amounts Food and Nutrition Related History Food Intolerance: none reported other than certain solid foods, hence liquid diet Physical Activity: Walks 5 miles daily and enjoys his activities Pertinent Medications/Supplements: / Renal MVI, Calcitrol ANTHROPOMETRICS Admission Weight: 71.6 kg Weight: 71.6 kg Weight change since admission: 0 kg Weight Used for Equation Calculations: 68 kg Usual Body Weight: 92.5 kg [place] Body Weight (Calculated) : 67.5 kg Adjusted Body Weight : 68.5 Kg Weight Change History: Lost about --21 kg in the past 2-3 months ESTIMATED NEEDS: Weight Used for Equation Calculations: 68 kg kcal/k-30 Estimated Energy Needs (Low): 1700 kcal/day Estimated Energy Needs (High): 2040 kcal/day Total Calorie Needs: > 1700 suggested for weight gain/maintanence Weight Used to Calculate Protein Needs (Kg): 70 kg Method to Estimate Protein Needs (g/kg): 1 - 1.2 Estimated Protein Needs (Low): 70 Estimated Protein Needs (High): 84 Estimated Fluid Needs: 2100 mL/day PERTINENT LABS: Reviewed NUTRITION DIAGNOSIS: Altered GI function related to unclear etiology (achlasia) as evidenced by need for liquid diet Unintended weight loss related to achlasia as evidenced by -21 kg loss of recent NUTRITION INTERVENTION: Interventions: Nutrition education Long discussion about diet on full liquids and how to maximize energy needs. Consider the following and discussed suggestions in-depth: Bone broth, oil, ice cream, shakes, make own popsicles with Ensure Clear, find any way to add kcals to diet, think of food like medicine (ex: drink 1-2 oz of protein shake every 30 min even when not hungry). Nutrition therapy for FLD (cream of wheat, etc. ) with ONS and higher kcal food and protein sources. MONITORING AND EVALUATION: Nutrition Indicator Indicator/Desired Outcome: weight gain/maintain Patient Goal(s): 1. Weight gain/maintenance FOLLOW UP PLAN: 1. Patient is provided with RD's contact information and encouraged to call or send message via email/Patient Portal with questions or concerns. 2. Encouraged patient to follow up as needed Time spent with patient: 60 minutes Time spent counseling patient: 45 minutes DOWN FURNACE OPERATOR documented in this encounter Plan of Treatment Upcoming Encounters Date Type Specialty Care Team Description 09/01/2022 Appointment Gastroenterology and Hepatology Lyric Coe M.D. [address] [place] [phone] (Wo rk) 09/01/2022 Appointment Gastroenterology and Hepatology Maurice Herrera M.D., Ph.D. [address] [place] [phone] (Gary hicks) 09/02/2022 Appointment Gastroenterology and Hepatology Maurice Herrera M.D., Ph.D. [address] [place] [phone] (Gary hicks) documented as of this encounter Visit Diagnoses Diagnosis Achalasia documented in this encounter Care Teams Set Illustrator Relationship Specialty Start Date End Date Elsewhere, Pcp PCP - General Internal Medicine 06/05/22 documented as of this encounter
--- OUTSIDE RECORDS SUMMARY | 2022-07-22 11:00 | XMS_ITS | Encounter Summary ---
:1940 Author Organization [facility] Address [address] [place] [address] Care Team Providers Name Role Phone Elsewhere, Pcp Primary Care Provider Unavailable Reason for Referral Outpatient (Routine) - Closed Specialty Diagnoses / Procedures Referred By Contact Refer red To Contact Nephrology and Diagnoses Achalasia Failure Renal End Stage (HCC) Deyvi Coe [facility] Hypertension Procedures Nephrology - Electrolyte disorder eConsult MCodie [address] [place] [phone] Referral ID Status Reason Start Date Expiration Date Visits Requ ested Visits Authorized [id number] Closed 06/20/2022 06/20/2023 1 1 Outpatient (Routine) - Authorized Specialty Diagnoses / Procedures Referred By Contact Refer red To Contact Diagnoses Deyvi Jacobs M.D. [facility] Procedures EGD (EsophagoGastroDuodenoscopy) Restricted [address] [place], [place] [phone] Referral ID Status Reason Start Date Expiration Date Visits V isits Requested Authorized [id number] Authorized 06/20/2022 06/20/2023 1 1 utpatient (Routine) - Closed Specialty Diagnoses / Procedures Referred By Contact Refer red To Contact Diagnoses Deyvi Jacobs M.D. [facility] Procedures FL Esophagram Single Contrast [address] [place], [place] [phone] Referral ID Status Reason Start Date Expiration Date Visits Requ ested Visits Authorized [id number] Closed 06/20/2022 06/20/2023 1 1 Reason for Visit Outpatient (Routine) - Closed Specialty Diagnoses / Referred By Referred To Cont act Procedures Contact Gastroenterology and Diagnoses Achalasia Maurice Smyth [facility] Hepatology Trinh Mendes, Ph.D. [address] [place] [phone] Referral ID Status Reason Start Date Expiration Date Visits Requ ested Visits Authorized [id number] Closed 06/06/2022 06/06/2023 1 1 Encounter Details Date Type Department Care Team Description 06/20/2022 Comprehensive Visit Division of Maurice Smyth M.D., Ph.D. [address] [place] [phone] Failure Renal End Stage (HCC) (Primary D x); Gastroenterology in Deyvi Coe M.D. [address] [place] [phone] Achalasia; [place], [place] Loss Weight [address] [place], [place] [phone] Social History Tobacco Use Types Packs/Day [...] How often do you attend baptist or mormon More than 4 time s [...] documented as of this encounter Consult Notes Allison Pandey M.D. - 06/20/2022 8:00 AM CDT This is a supervisory note for the clinical encounter with Dr. Coe, advanced esophageal fellow. Isaw the patient and discussed the case in detail with Dr. Coe, including review of the patient's medical record, laboratory studies, imaging, and all available clinical notes. I have discussed the clinical presentation, differential diagnosis and management with him. I reviewed the fellow???s note.I agree with Dr. Coe's H&P, clinical assessment and diagnostic and therapeutic plans as outlined in his full consult note. Mr. Castro is an 81 year old male with achalasia diagnosed in 1960s s/p surgical myotomy around 1968 and re-do myotomy without fundoplication in November 2020, aspiration pneumonia, ELENI, atrial fibrillation now off coumadin, and ESRD on peritoneal dialysis who presents for evaluation of achalasia after admission to [facility] with hematemesis and referral from local team to see if he is candidate for POEM. Today he notes he has been having worsening dysphagia restricted to liquid diet with 30 lb weight loss in Spring 2021. Now dysphagia stable since diet limited with Eckardt 3 for weight loss only on chest pain or regurgitation. He has not heartburn. Is taking Protonix 40 mg daily. [facility] records reviewed including EGD 06/06/22 done for hematemesis that showed a dilated esophagus with patulous lower esophageal sphincter and no retention in the esophagus with fluid that cleared to stomach, severe esophagitis in middle lower third esophagus due to stasis or reflux, Endoclip middle third esophagus, coffee ground liquid in stomach with diffuse nodularity. Hemoglobin stable during admission. We will expedite esophagram with timed barium and tablet. This will help us determine which path we are headed. If he has retention and we think this is an incomplete myotomy then proceed with review and our multidisciplinary esophagus conference and possible POEM. If we think the myotomy is open thenaggressive GERD management. For now increase PPI to BID. Will need repeat EGD to assess healing. Follow up with Dr. Coe. Deyvi Coe M.D. - 06/20/2022 8:00 AM CDT SUBJECTIVE CHIEF COMPLAINT / REASON FOR VISIT Achalasia REFERRING PHYSICIAN: Maurice Smyth M.D., Ph.D. [address] [place] [phone] SUPERVISING STAFF: Dr. Pandey HISTORY OF PRESENT ILLNESS Mr. Castro is a very pleasant 81 y.o. male who is being seen in clinic today for achalasia. #1 Achalasia s/p surgical myotomy in 1968 and Heller myotomy without fundoplication on 12/03/2020 Mr. Castro presents for evaluation for achalasia. The patient first began having solid food dysphagia in his 20s. He would have periodic food bolus impactions once every few years. In the , he would be admitted for several weeks after food bolus impactions and would have to use a Hurst dilator while in the hospital, which would allow him to resume eating. He underwent a surgical myotomy in 1968 in [place] and which time his esophageal lumen caliber was found be severely narrowed. He then had improvement in his dysphagia over the next 20 years. Thereafter, he began having issues with solid food dysphagia and would periodically requiring endoscopic removal of food contents. Over the last 15-17 years, he has been extra careful with his eating. However, continued to have intermittent dysphagia. Ultimately, he underwent a Heller myotomy without fundoplication at [facility] on 12/03/20. This did not dramatically help with his symptoms. Since November 2021, he has been on a liquid diet. His diet consists of 1 can of soup daily, 1 protein shake daily, 2- 3 scoops of ice cream, and 3-4 popsicles. He avoids soft or any other solid foods. He typically eats a meal at 6:30 a.m. and 11:30 a.m. and does not have any food after 4:00 p.m.. He lays down for bed at 9:30 p.m. and inclines his head of the bed by 30??. He has lost 30 lb over the last 3 months. He denied any heartburn, regurgitation, dysphagia, abdominal pain, nausea, vomiting, hematochezia at this time. He does endorse episodes of coffee-ground emesis including 3 such episodes over the last 1.5 months which resulted in him going to the local hospital. During these episodes, he also has melena. The most recent episode took place on 06/06/22 at which time he had an EGD at [facility]. This demonstrated no esophageal motility, dilated esophageal lumen, no resistance to the endoscope advancement into the stomach, and severe esophagitis with contact friability and self-limited oozing in the middle and lower third esophagus. Biopsies from the esophagus showed acute esophagitis with ulceration with biopsies positive for Mirna and negative for CMV and HSV. He is had a series of endoscopies over the last several months and years. These can be seen in Care everywhere. Is additional workup includes an esophagram on 05/17/22 which showed a very dilated esophagus withoutcontractions and limited opening at the GE junction consistent with achalasia. He had a manometry locally, the records of which are not available to us, which reportedly showed type 2 achalasia. He wasreferred to us for consideration of POEM for management of achalasia. His comorbidities include end-stage renal disease on peritoneal dialysis daily for 8 hours, atrial fibrillation previously on warfarin but this was discontinued about 2-3 weeks ago, hypertension, obstructive sleep apnea on CPAP. He has a history of achalasia status post surgical myotomy in 1968 and Heller myotomy without fundoplication on 12/03/20. He has had frequent upper GI bleeds secondary to esophageal stasis ulcerations. He reports having been on omeprazole once daily for the last 20 years. Recently this was switched topantoprazole 40 mg once daily for unclear reasons. He takes this in the morning 5-10 minutes before meals. He has been on sucralfate QID for the last 1 month but both him and his crop grain or livestock farmer are worried about the exterminator termite effects of this medication in the setting of ESRD. He denied any family history of achalasia. Denied any smoking or alcohol use. REVIEW OF SYSTEMS All other systems reviewed and negative unless mentioned in the history of present illness, patient provided information or problem list. HISTORY REVIEW: The following portions of the patient's history were reviewed and updated as appropriate: allergies,current medications, family history, medical history, social history, surgical history and problem list. OBJECTIVE VITAL SIGNS There were no vitals taken for this visit. PHYSICAL EXAMINATION General: Sitting comfortably in no acute distress. Psychiatric: Awake, alert and oriented. Skin: No obvious rashes. Eyes: Sub conjunctiva pink. No icterus. Heart: Normal heart sounds. Regular rate and rhythm. Lungs: Clear bilaterally. Abdomen: Soft, nontender and nondistended. No hepatosplenomegaly. Normal bowel sounds. Extremities: No clubbing, cyanosis, sclerodactyly or edema. Gait: Examined and normal. Neuro: Nonfocal. ASSESSMENT / PLAN Mr. Castro is a very pleasant 81 y.o. male who is being seen in clinic today for achalasia. #1 Achalasia s/p surgical myotomy in 1968 and Heller myotomy without fundoplication on 12/03/2020 #2 Erosive esophagitis, possibly secondary to stasis ulcerations in the setting of anticoagulation for atrial fibrillation versus gastroesophageal reflux #3 Liquid diet with weight loss of 30 lb over last 3 months #4 Atrial fibrillation, previously on warfarin, discontinued 2-3 weeks ago by local incident response lead dueto GI bleeding #5 ESRD on nightly peritoneal dialysis #6 Hypertension #7 ELENI on CPAP Mr. Castro has a longstanding history of achalasia. He has has undergone surgical myotomy in 1968 and more recently, Heller myotomy without fundoplication on 12/03/20 at [facility]. After the latter, he had no significant improvement in his symptoms. Since November 2021, he has been on liquid diet with minimal symptoms of dysphagia, heartburn, and regurgitation. His Eckardt score today was 3 although this is on the limited diet. He has lost 30 lb over the last 3 months and recently met with a dietitian locally to discuss weight gain strategies. His primary issue at this time is episodes of coffee-ground emesis and melena secondary to erosive esophagitis and ulcerations in the esophagus. These have been felt to possibly be secondary to partially treated achalasia. He was referred to us for consideration of POEM by his local gastroenterologistDr. Ozuna ([facility], Cell phone [phone]). While his workup at home including an esophagram in 04/2022 and manometry 05/2022 raise the possibility of persistent achalasia, his most recent EGD performed at [facility] on 06/06/22 demonstrated no resistance of endoscope advancement into the stomach. At this time, we would like to obtain an esophagram with barium tablet. If this demonstrates signs of achalasia, we will pursue additional testing with esophageal manometry and EGD with Endo flip. If, however, there are no changes consistent with achalasia on the esophagram and the lower esophageal sphincter appears open, we will work on optimizing his acid suppression strategy. Currently he is on once daily PPI and we asked him to increase this to twice daily and take this at least 30-45 minutes prior to meals. He is also on Carafate QID to heal the erosive esophagitis and ulcerations. However, his local crop grain or livestock farmer has wanted to take him off this medication given his end-stage renal disease on peritoneal dialysis. I will refer him to our nephrologists to see whether Carafate may be safe to usein the setting of his kidney disease and if not, whether a lower dose such as once or twice daily may be acceptable, and whether any specific monitoring may be required. Per patient request, I will contact his local drupal programmer to discuss the plan above. ADDENDUM 06/20/22: I talked to Dr. Ozuna (phone number above) who was in agreement with our plan. We also requested that he fax the recent manometry study and he will do so. I have also sent a prescription for a 14-day course of nystatin swish and swallow QID given the finding of Mirna on esophageal biopsies from recent EGD. The patient was in full understanding of the plan outlined above. The case was staffed with Dr. Pandey. PATIENT EDUCATION Ready to learn, no apparent learning barriers were identified; learning preferences include listening. Explained diagnosis and treatment plan; patient expressed understanding of the content. documented in this encounter Plan of Treatment Upcoming Encounters Date Type Specialty Care Team Description 09/01/2022 Appointment Gastroenterology and Hepatology Lyric Coe M.D. [address] [place] [phone] (Gary hicks) 09/01/2022 Appointment Gastroenterology and Hepatology Maurice Herrera M.D., Ph.D. [address] [place] [phone] (Gary hicks) 09/02/2022 Appointment Gastroenterology and Hepatology Maurice Herrera M.D., Ph.D. [address] [place] [address] [phone] (Gary hicks) Scheduled Orders Name Type Priority Associated Diagnoses Order S chedule EGD GI Routine Achalasia Expected: 06/20 (EsophagoGastroDuodenoscop ( Approximate), Expires: y) Restricted 09/20/2023 documented as of this encounter Results FL Esophagram Single Contrast [...] change since double contrast esophagram 02/15/2019. Deyvi K Carolin M.D. IMG FLUOROSCOPY PROCEDURES documented in this encounter Visit Diagnoses Diagnosis Failure Renal End Stage (HCC) - Primary Achalasia Loss Weight Achalasia documented in this encounter Care Teams Pyrometer Operator Relationship Specialty Start Date End Date Elsewhere, Pcp PCP - General Internal Medicine 06/05/22 documented as of this encounter
--- OUTSIDE RECORDS SUMMARY | 2022-07-22 11:00 | XMS_ITS | Encounter Summary ---
:1940 Author Organization [facility] Address [address] [place] [address] Care Team Providers Name Role Phone Elsewhere, Pcp Primary Care Provider Unavailable Reason for Visit Auth/Cert Specialty Diagnoses / Procedures Referred By Contact Refer red To Contact Diagnoses Hemorrhage Gastrointestinal coffee ground emesis Procedures ADMIT TO INPATIENT Referral ID Status Reason Start Date Expiration Date Visits Requ ested Visits Authorized [id number] 1 1 Encounter Details Date Type Department Care Team Description 06/06/2022 Anesthesia Event Division of Gastroenterology Be José Luis engle APRN, ZACH [address] [place] [phone] in [facility] Jacob Moore APRN, RISK MANAGEMENT MANAGER [address] [place] [phone] [place] [phone] Anesthesia Record Procedure Summary Procedure Name [...] h andoff to the receiving staff during [facility] we 1. Identified the patient [...] by 06/07/22 1400 b y 06/05/22; Placement Marguerite Escamilla Hughes, S amantha J, Time: 233; [...] Beyai, Saikou, Time: 1238 (created via ARMOND SERRANO APRN procedure documentation); Mask Ventilation: Easy mask; [...] How often do you attend sabianist or [employer]aritan More than 4 time s [...] Room / Location: Division of Gastroenterology in [place], [place] Anesthesia Start: 1229 Anesthesia Stop: 1312 [...] ETT location: oral VL device: glide scope [place] scope blade size: 4 Adult tube size: [...] EGD (ESOPHAGEALGASTRODUODENOSCOPY) Location: Division of Gastroenterology in [place], [place] Pertinent components of the patient's history [...] with patient /legal guardian or through an can dragger. Risks/Benefits/Alternatives of Blood transfusion discussed with patient [...] Description 09/01/2022 Appointment Gastroenterology and Hepatology Lyric Ceo M.D. [address] [place] [phone] (Gary rk) 09/01/2022 Appointment Gastroenterology and Hepatology Maurice Herrera M.D., Ph.D. [address] [place] [phone] (Gary rk) 09/02/2022 Appointment Gastroenterology and Hepatology Maurice Herrera M.D., Ph.D. [address] [place] [phone] (Gary hicks) documented as of this encounter [...] ETT location: oral VL device: glide scope [place] scope blade size: 4 Adult tube size: [...] Intra-op documented in this encounter Care Teams Glass Production Machine Operator Relationship Specialty Start Date End Date Elsewhere, Pcp PCP - General Internal Medicine 06/05/22 documented as of this encounter
--- OUTSIDE RECORDS SUMMARY | 2022-07-22 11:00 | XMS_ITS | Encounter Summary ---
:1940 Author Organization [facility] Address [address] [place] [address] Care Team Providers Name Role Phone Elsewhere, Pcp Primary Care Provider Unavailable Reason for Referral Outpatient (Routine) - Authorized Specialty Diagnoses / Procedures Referred By Contact Refer red To Contact Diagnoses Achalasia Maurice Smyth M.D., [facility] Procedures Esophageal Manometry Ph.D. [address] [place] [phone] Referral ID Status Reason Start Date Expiration Date Visits V isits Requested Authorized [id number] Authorized 06/07/2022 06/07/2023 1 1 Encounter Details Date Type Department Care Team Description 06/07/2022 Clinical Communication Division of [facility], Gastroenterology in Maurice Mendes M.D., [place], [place] Ph.D. [address] [place] [address] [place] [phone] [place], [place] [phone] Social History Tobacco Use Types Packs/Day Years [...] How often do you attend quaker or denominational More than 4 time s [...] Gastroenterology and Hepatology Lyric Coe M.D. [address] [place] [address] [phone] (Gary hicks) 09/01/2022 Appointment Gastroenterology and Hepatology Maurice Herrera M.D., Ph.D. [address] [place] [address] [phone] (Gary hicks) 09/02/2022 Appointment Gastroenterology and Hepatology Maurice Herrera M.D., Ph.D. [address] [place] [address] [phone] (Gary hicks) Scheduled Orders Name Type Priority Associated Diagnoses Order S chedule Esophageal Manometry GI Routine Achalasia Expecte d: 06/07/2022 (Approximate), Expires: 09/07/2023 documented as of this encounter Visit Diagnoses Diagnosis Achalasia - Primary documented in this encounter Care Teams Accredited Farm Manager Relationship Specialty Start Date End Date Elsewhere, Pcp PCP - General Internal Medicine 06/05/22 documented as of this encounter
--- OUTSIDE RECORDS SUMMARY | 2022-07-22 11:00 | XMS_ITS | Encounter Summary ---
:1940 Author Organization [facility] Address [address] [place] [address] Care Team Providers Name Role Phone Unavailable Primary Care Provider Unavailable Reason for Visit Reason Comments Pre-visit Intake Encounter Details Date Type Department Care Team Description 04/12/2022 Clinical Communication Visit Review in Pr e-visit Intake [place] [address] [place] [address] Social History Tobacco Use Types [...] How often do you attend lutheran or caodaism More than 4 time s [...] Gastroenterology and Hepatology Lyric Coe M.D. [address] [place] [phone] (Gary hicks) 09/01/2022 Appointment Gastroenterology and Hepatology Maurice Herrera M.D., Ph.D. [address] [place] [phone] (Gary hicks) 09/02/2022 Appointment Gastroenterology and Hepatology Maurice Herrera M.D., Ph.D. [address] [place] [phone] (Gary hicks) documented as of this encounter Visit Diagnoses Not on filedocumented in this encounter
--- OUTSIDE RECORDS SUMMARY | 2022-07-22 11:00 | XMS_ITS | Encounter Summary ---
:1940 Author Organization [facility] Address [address] [place] [address] Care Team Providers Name Role Phone Unavailable Primary Care Provider Unavailable Reason for Visit Reason Comments Release of Information Encounter Details Date Type Department Care Team Description 03/03/2022 Clinical Division of Jessa Heredia of Communication Pulmonary Medicine Trinh Mendes Information in [address] [place] [phone] [place], [place] [phone] (Work) [phone] Social History Tobacco Use Types Packs/Day Years [...] How often do you attend mosque or rastafarian More than 4 time s [...] of Information Items: [facility] MAR[facility] forms To: PR Evidence intake Method: ROHIT FerrellN / [id number] documented in this encounter Plan of Treatment Upcoming Encounters Date Type Specialty Care Team Description 09/01/2022 Appointment Gastroenterology and Hepatology Lyric Coe M.D. [address] [place] [address] [phone] (Gary hicks) 09/01/2022 Appointment Gastroenterology and Hepatology Maurice Herrera M.D., Ph.D. [address] [place] [address] [phone] (Gary hicks) 09/02/2022 Appointment Gastroenterology and Hepatology Maurice Herrera M.D., Ph.D. [address] [place] [address] [phone] (Gary hicks) documented as of this encounter Visit Diagnoses Not on filedocumented in this encounter
--- OUTSIDE RECORDS SUMMARY | 2022-07-22 11:00 | XMS_ITS | Encounter Summary ---
:[address] [facility] Address [address] [place] [address] Care Team Providers Name Role Phone Unavailable Primary Care Provider Unavailable Reason for Referral Outpatient (Routine) - Authorized Specialty Diagnoses / Referred By Contact Referred To Contact Procedures Cardiovascular Diseases / Diagnoses Stenosis Aortic Valve Acquired Arun Boone [facility] Cardiovascular Disease Trinh CASANOVA [address] [place] [address] Referral ID Status Reason Start Date Expiration Date Visits V isits Requested Authorized [id number] Authorized 04/15/2022 04/15/2023 1 1 Specialty Diagnoses / Procedures Referred By Contact Refer red To Contact Alyssa Richards M. D. [facility] [address] [place] [phone] Referral ID Status Reason Start Date Expiration Date Visits Requ ested Visits Authorized Outpatient (Routine) - Authorized Specialty Diagnoses / Procedures Referred By Contact Refer red To Contact Diagnoses Stenosis Aortic Valve Acquired Arun Boone III, M.D. [facility] Procedures ECG 12 Lead [address] [place] [phone] Referral ID Status Reason Start Date Expiration Date Visits V isits Requested Authorized [id number] Authorized 04/15/2022 04/15/2023 1 1 Outpatient (Routine) - Authorized Specialty Diagnoses / Procedures Referred By Contact Refer red To Contact Diagnoses Stenosis Aortic Valve Acquired Arun Boone III [facility] Procedures Echo Transthoracic (TTE) - Complex Valvular Heart Disease Trinh 200 [place], [place] [phone] Referral ID Status Reason Start Date Expiration Date Visits V isits Requested Authorized [id number] Authorized 04/15/2022 04/15/2023 1 1 Outpatient (Routine) - Authorized Specialty Diagnoses / Procedures Referred By Contact Refer red To Contact Diagnoses Stenosis Aortic Valve Acquired Arun Boone III, M.D. [facility] Procedures DX Chest AP or PA and Lateral 2 Views [address] [place] [address] [phone] Referral ID Status Reason Start Date Expiration Date Visits V isits Requested Authorized [id number] Authorized 04/15/2022 04/15/2023 1 1 Reason for Visit Outpatient (Routine) - Closed Specialty Diagnoses / Procedures Referred By Contact Refer red To Contact Cardiovascular Diseases / Diagnoses Effusion Pericardial Acute (HCC) Jessa Heredia [facility] Cardiovascular Disease Trinh 200 [place] [address] Referral ID Status Reason Start Date Expiration Date Visits Requ ested Visits Authorized [id number] Closed 03/02/2022 03/02/2023 1 1 Encounter Details Date Type Department Care Team Description 04/15/2022 Virtual Visit Department of Jessa Heredia M.D. [address] [place] [phone] Stenosis Aortic Valve Acquired (Primary Dx); Cardiovascular Medicine Alyssa Richards M.D. 200 [place] [phone] Effusion Pericardial Acute (HCC) in [facility] 200 [place] [address] Social History Tobacco Use Types Packs/Day Years [...] How often do you attend amish or evangelical More than 4 time s per year 04/11/2022 services? Do you belong to any clubs or organizations Yes 04/11/2022 such as amish groups, unions, fraternal or [...] audio/visual technology by Alyssa Richards M.D. in [facility] to the patient in patient's home. Subjective #1 Effusion Pericardial Acute (HCC) Psychosocial: Patient is calling from [facility] Pertinent past medical history: Atrial fibrillation [...] TTE was ordered and follow-up with the personal care aid as well requested. His most recent TTE demonstrated interval improvement with small circumferential pleural effusion noted. He also had a repeat ECG that was done which came back similar to previous ECG with first-degree AV block and left bundle-branch block noted. No diffuse ST segment elevation,ND depression, downsloping TP segment, or electrical alternans [...] person today, but is currently hospitalized in [place] due to some issues with nausea and [...] Gastroenterology and Hepatology Lyric Coe M.D. [address] [place] [phone] (Wo rk) 09/01/2022 Appointment Gastroenterology and Hepatology Maurice Herrera M.D., Ph.D. 200 [place] [phone] (Wo rk) 09/02/2022 Appointment Gastroenterology and Hepatology Maurice Herrera M.D., Ph.D. 200 [place] [phone] (Wo rk) Scheduled Orders Name Type Priority Associated Order [...]
--- OUTSIDE RECORDS SUMMARY | 2022-07-22 11:00 | XMS_ITS | Encounter Summary ---
:1940 Author Organization [facility] Address [address] [place] [address] Care Team Providers Name Role Phone Unavailable Primary Care Provider Unavailable Reason for Referral Outpatient (Routine) - Closed Specialty Diagnoses / Procedures Referred By Contact Refer red To Contact Diagnoses Effusion Pericardial Acute (HCC) Jessa Heredia M.D. [facility] Procedures Echo Transthoracic (TTE) 200 [place] [address] Referral ID Status Reason Start Date Expiration Date Visits Requ ested Visits Authorized [id number] Closed 03/02/2022 03/02/2023 1 1 Reason for Visit Outpatient (Routine) - Closed Specialty Diagnoses / Procedures Referred By Contact Refer red To Contact Diagnoses Effusion Pericardial Acute (HCC) Jessa Heredia M.D. [facility] Procedures Echo Transthoracic (TTE) 200 [place] [address] Referral ID Status Reason Start Date Expiration Date Visits Requ ested Visits Authorized [id number] Closed 03/02/2022 03/02/2023 1 1 Encounter Details Date Type Department Care Team Description 04/05/2022 Hospital Department of Jessa Heredia Effusion Encounter Cardiovascular Trinh Mendes Pericardial Acute Diseases in [place], [facility] [address] [facility] (HCC) [place], [place] 200 [facility] [address] [place], [place] [phone] (Work) [phone] Social History Tobacco Use Types Packs/Day Years [...] Gastroenterology and Hepatology Lyric Coe M.D. [address] [place] [address] [phone] (Wo rk) 09/01/2022 Appointment Gastroenterology and Hepatology Maurice Herrera M.D., Ph.D. [address] [place] [address] [phone] (Wo rk) 09/02/2022 Appointment Gastroenterology and Hepatology Maurice Herrera M.D., Ph.D. [address] [place] [address] [phone] (Wo rk) documented as of this encounter Procedures Procedure Name Priority Date/Time Associated Diagnosis Comme nts (TTE) 2D ECHO Routine 04/05/2022 3:55 PM Effusion Pericardial Results for this DOPPLER COLOR CDT Acute (HCC) procedure are in the results section. documented in this encounter Results (TTE) 2D ECHO DOPPLER COLOR (04/05/2022 3:55 PM CDT) [facility] Method Time Signature Ejection Fraction 66 [...] was performed but not reported based on wildlife enforcement major's judgment. No regional wall motion abnormalities. Abnormal [...] For the complete report, see the [email or web address] Documents. Narrative 04/07/2022 11:43 AM CDT For [...] 04/07/2022 For the complete report, see the Trave[email or web address] Documents. Final Impressions 1. Normal left ventricular [...]
--- OUTSIDE RECORDS SUMMARY | 2022-07-22 11:00 | XMS_ITS | Encounter Summary ---
:1940 Author Organization [facility] Address [address] [place] [address] Care Team Providers Name Role Phone Unavailable Primary Care Provider Unavailable Reason for Referral Outpatient (Routine) - Authorized Specialty Diagnoses / Procedures Referred By Contact Refer red To Contact Diagnoses Effusion Pericardial Acute (HCC) Chronic Systolic (Congestive) Heart Failure (HCC) Atrial Fibrillation Paroxysmal (HCC) Bundle Branch Block Left Dialysis Peritoneal Status (HCC) Mehrdad Lazcano APRNA.[facility] Procedures ECG Heart rhythm monitor (Holter) C.N.P. [address] [place] [address] Referral ID Status Reason Start Date Expiration Date Visits V isits Requested Authorized [id number] Authorized 03/08/2022 03/08/2023 1 1 Reason for Visit Outpatient (Routine) - Authorized Specialty Diagnoses / Procedures Referred By Contact Refer red To Contact Diagnoses Effusion Pericardial Acute (HCC) Chronic Systolic (Congestive) Heart Failure (HCC) Atrial Fibrillation Paroxysmal (HCC) Bundle Branch Block Left Dialysis Peritoneal Status (HCC) Mehrdad Lazcano APRNA.[facility] Procedures ECG Heart rhythm monitor (Holter) C.N.P. [address] [place] [address] Referral ID Status Reason Start Date Expiration Date Visits V isits Requested Authorized [id number] Authorized 03/08/2022 03/08/2023 1 1 Encounter Details Date Type Department Care Team Description 04/04/2022 Hospital Department of [place], Effusion Peric ardial Acute (HCC); Encounter Cardiovascular Mehrdad M, Chronic Systo lic (Congestive) Heart Failure (HCC); Diseases in [place], RN VISITING, C.N .P. Atrial Fibrillation Paroxysmal ([facility]); [place] [address] Bundle Branch Block Left; [address] [place], [place] Dialysis Peritoneal Status ( HCC) [place] [phone] Social History Tobacco Use Types Packs/Day Years [...] How often do you attend orthodox or taoism More than 4 time s [...] Gastroenterology and Hepatology Lyric Coe M.D. [address] [place] [phone] (Gary hicks) 09/01/2022 Appointment Gastroenterology and Hepatology Maurice Herrera M.D., Ph.D. [address] [place] [phone] (Gary hicks) 09/02/2022 Appointment Gastroenterology and Hepatology Maurice Herrera M.D., Ph.D. [address] [place] [address] [phone] (Gary hicks) documented as of this encounter Procedures Procedure Name Priority Date/Time Associated Diagnosis Comme nts HOLTER MONITOR - IN Routine 04/05/2022 6:00 AM Effusion Perica rdial Results for this CLINIC CREDIT RATING INSPECTOR CDT Acute (HCC) procedure are in Chronic Systolic the results (Congestive) Heart section. Failure (HCC) Atrial Fibrillation Paroxysmal (HCC) Bundle Branch Block Left Dialysis Peritoneal Status (HCC) documented in this encounter Results HOLTER MONITOR - IN CLINIC CREDIT RATING INSPECTOR (04/05/2022 6:00 AM CDT) P athologist [...] Duration 6h 30m duration INFOBIONIC MOME AF [place] 29 percent INFOBIONIC MOME Longest AF 7h [...] seen singly at and around these times. Greige Goods Examiner: Marilou Zimmer / Violet Cotton Fellow: Clemente [...] seen singly at and around these times. Greige Goods Examiner: Marilou Zimmer / Violet Cotton Fellow: Clemente [...]
--- OUTSIDE RECORDS SUMMARY | 2022-07-22 11:00 | XMS_ITS | Encounter Summary ---
:1940 Author Organization [facility] Address [address] [place] [address] Care Team Providers Name Role Phone Elsewhere, Pcp Primary Care Provider Unavailable Encounter Details Date Type Department Care Team Description 06/09/2022 Clinical Communication Division of [facility], Gastroenterology in Maurice Mendes M.D., [place], [place] Ph.D. [address] [facility] [address] [place] [phone] [place], [place] [phone] Social History Tobacco Use Types Packs/Day Years [...] How often do you attend mormonism or roman catholic More than 4 time [...] and Hepatology Lyric Coe M.D. [address] [place] [phone] (Wo rk) 09/01/2022 Appointment Gastroenterology and Hepatology Maurice Herrera M.D., Ph.D. [address] [place] [phone] (Wo rk) 09/02/2022 Appointment Gastroenterology and Hepatology Maurice Herrera M.D., Ph.D. [address] [place] [phone] (Wo rk) documented as of this encounter Visit Diagnoses Diagnosis Achalasia - Primary documented in this encounter Care Teams Peoplesoft Developer Relationship Specialty Start Date End Date Elsewhere, Pcp PCP - General Internal Medicine 06/05/22 documented as of this encounter
--- OUTSIDE RECORDS SUMMARY | 2022-07-22 11:00 | XMS_ITS | Encounter Summary ---
:1940 Author Organization [facility] Address [address] [place] [address] Care Team Providers Name Role Phone Unavailable Primary Care Provider Unavailable Encounter Details Date Type Department Care Team Description 04/04/2022 Hospital Encounter Department of Mehrdad Lazcano Pericardial Acute (HCC); Laboratory Medicine M, STOCKKEEPER, C.N .P. 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); and Pathology, [address] Atrial Fibrillation Paroxysmal (HCC); [facility], [place], [place] Bundle B ranch Block Left; [place], [address] Dialysis Peritoneal Status (HCC) [place] [phone] [address] [facility] [[email or web address]] (Work) [place], [place] [phone] (Fax) [phone] Social History Tobacco Use Types Packs/Day Years [...] How often do you attend sabianist or quaker More than 4 time s [...] Gastroenterology and Hepatology Lyric Coe M.D. [address] [place] [phone] (Wo rk) 09/01/2022 Appointment Gastroenterology and Hepatology Maurice Herrera M.D., Ph.D. [address] [place] [phone] (Wo rk) 09/02/2022 Appointment Gastroenterology and Hepatology Maurice Herrera M.D., Ph.D. [address] [place] [phone] (Wo rk) documented as of this encounter [...] (ABNORMAL) Sedimentation Rate (04/04/2022 11:36 AM CDT) [facility] Time Signature Sedimentation 61 (H) 3 - 28 04/04/2022 DTL Rate, B mm/h 12:50 PM CDT Specimen Anatomical Collection Method Collection Time Receive d Time (Source) Location / / Volume Laterality Blood (Blood, 04/04/2022 11:36 04/04/2022 Venous) AM CDT 11:56 AM CDT Mehrdad Lazcano APRN C.N.P. LAB BLOOD ADD-ON Performing Organization Address City/State/ZIP Code Phon e Number [facility] - [address] [place], [place] [address] [facility] [place] [address] [facility] [address] [facility] (ABNORMAL) CBC with Differential, Blood (04/04/2022 11:36 AM CDT) [employer] Method Time Signature Hemoglobin 11.7 (L) 13.2 [...] C.N.P. LAB BLOOD ADD-ON Performing Organization Address City/[facility] Phon e Number [facility] [address] (ABNORMAL) CRP (C-Reactive Protein) (04/04/2022 11:35 AM CDT) athologist Signature C-Reactive 16.2 (H) <=8.0 mg/L 04/04/2022 DTL Protein (CRP), 1:55 PM CDT S Specimen Anatomical Collection Method Collection Time Receive d Time (Source) Location / / Volume Laterality Blood (Blood, 04/04/2022 11:35 04/04/2022 Venous) AM CDT 12:06 PM CDT Mehrdad Lazcano APRN, C.N.P. LAB BLOOD ADD-ON Performing Organization Address City/[facility] Phon e Number [facility] - [address] [place] [address] (ABNORMAL) NT-Pro B-Type Natriuretic Peptide (BNP) [...] Organization Address City/State/ZIP Code Phon e Number [facility] - [facility] [address] [place], [place] [address] [facility] [place] [address] [facility] 200 [facility] (ABNORMAL) Comprehensive Metabolic Panel (04/04/2022 11:35 AM [...] Black/ mL/min/BSA 1:48 PM CDT Citizen Of [place] Comment: ----ADDITIONAL INFORMATION---- Estimated GFR calculated using [...] Organization Address City/State/ZIP Code Phon e Number [facility] - [address] [place], [place] [address] [facility] [place] [address] [facility] [address] documented in this encounter Visit Diagnoses Diagnosis Effusion Pericardial Acute (HCC) 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
--- OUTSIDE RECORDS SUMMARY | 2022-07-22 11:00 | XMS_ITS | Encounter Summary ---
:1940 Author Organization [facility] Address [address] [place] [address] Care Team Providers Name Role Phone Elsewhere, Pcp Primary Care Provider Unavailable Reason for Referral Outpatient (Routine) - Closed Specialty Diagnoses / Procedures Referred By Contact Refer red To Contact Nutrition Diagnoses Achalasia Maurice Smyth M.D., Ph.D. [facility] [address] [place] [phone] Referral ID Status Reason Start Date Expiration Date Visits Requ ested Visits Authorized [id number] Closed 06/07/2022 06/07/2023 1 1 Encounter Details Date Type Department Care Team Description 06/07/2022 Clinical Communication Division of [facility], Gastroenterology in Maurice Mendes M.D., [place], [place] Ph.D. [address] [place] [address] [place] [phone] [place], [place] [phone] Social History Tobacco Use Types Packs/Day Years [...] How often do you attend nondenominational or episcopal More than 4 time s per year 04/11/2022 services? Do you belong to any clubs or organizations Yes 04/11/2022 such as nondenominational groups, unions, fraUsersnap or athletic groups, or school groups? How [...] Gastroenterology and Hepatology Lyric Coe M.D. [address] [place] [address] [phone] (Gary hicks) 09/01/2022 Appointment Gastroenterology and Hepatology aMurice Herrera M.D., Ph.D. [address] [place] [address] [phone] (Gary hicks) 09/02/2022 Appointment Gastroenterology and Hepatology Maurice Herrera M.D., Ph.D. [address] [place] [address] [phone] (Gary hicks) Scheduled Referrals Name Type Priority Associated Order Schedule Diagnoses Nutrition - Outpatient Routine Achalasia Expected: Gastroenterology medical Referral nutrition therapy (Approxima te), consult (clinic) Expires: 09/07/2023 documented as of this encounter Visit Diagnoses Diagnosis Achalasia - Primary documented in this encounter Care Teams Patient Registration Clerk Relationship Specialty Start Date End Date Elsewhere, Pcp PCP - General Internal Medicine 06/05/22 documented as of this encounter
--- OUTSIDE RECORDS SUMMARY | 2022-07-22 11:00 | XMS_ITS | Encounter Summary ---
:1940 Author Organization [facility] Address [address] [place] [address] Care Team Providers Name Role Phone Elsewhere, Pcp Primary Care Provider Unavailable Encounter Details Date Type Department Care Team Description 06/07/2022 Orders Only Division of Gastroenterology in [place], [place] Trinh Mendes, Ph.D. [address] [facility] [address] [place] [address] [place], [place] [phone] (Wo rk) Social History Tobacco Use Types [...] How often do you attend jainism or orthodoxy More than 4 time s per year [...] Gastroenterology and Hepatology Lyric Coe M.D. [address] [place] [phone] (Wo rk) 09/01/2022 Appointment Gastroenterology and Hepatology Maurice Herrera M.D., Ph.D. [address] [place] [phone] (Wo rk) 09/02/2022 Appointment Gastroenterology and Hepatology Maurice Herrera M.D., Ph.D. [address] [place] [phone] (Wo rk) documented as of this encounter Visit Diagnoses Not on filedocumented in this encounter Care Teams Jig Worker Relationship Specialty Start Date End Date Elsewhere, Pcp PCP - General Internal Medicine 06/05/22 documented as of this encounter
--- OUTSIDE RECORDS SUMMARY | 2022-07-22 11:00 | XMS_ITS | Encounter Summary ---
:1940 Author Organization [facility] Address [address] [place] [address] Care Team Providers Name Role Phone Elsewhere, Pcp Primary Care Provider Unavailable Reason for Referral Outpatient (Routine) - Closed Specialty Diagnoses / Referred By Referred To Cont act Procedures Contact Gastroenterology [facility] Diagn[facility] Trinh Mendes, Ph.D. [address] [place] [phone] Referral ID Status Reason Start Date Expiration Date Visits Requ ested Visits Authorized [id number] Closed 06/06/2022 06/06/2023 1 1 Encounter Details Date Type Department Care Team Description 06/06/2022 Clinical Communication Division of [facility], Gastroenterology in Maurice Mendes M.D., [place], [place] Ph.D. [address] [place] [address] [place], [place] [phone] Social History Tobacco Use Types Packs/Day Years [...] How often do you attend restoration or rastafari More than 4 time s [...] Gastroenterology and Hepatology Lyric Coe M.D. [address] [place] [address] [phone] (Gary hicks) 09/01/2022 Appointment Gastroenterology and Hepatology Maurice Herrera M.D., Ph.D. [address] [place] [address] [phone] (Gary hicks) 09/02/2022 Appointment Gastroenterology and Hepatology Maurice Herrera M.D., Ph.D. [address] [place] [address] [phone] (Gary hicks) Scheduled Referrals Name Type Priority Associated Order Schedule Diagnoses Gastroenterology and Outpatient Routine Achalasia Expecte d: Hepatology - Esophageal Referral 05/21 consult (clinic) (Approximat e), Expires: 09/06/2023 documented as of this encounter Visit Diagnoses Diagnosis Achalasia - Primary documented in this encounter Care Teams Wellness Assistant Relationship Specialty Start Date End Date Elsewhere, Pcp PCP - General Internal Medicine 06/05/22 documented as of this encounter
--- OUTSIDE RECORDS SUMMARY | 2022-07-22 11:01 | XMS_ITS | Encounter Summary ---
:1940 Author Organization [facility] Address [address] [place] [address] Care Team Providers Name Role Phone Unavailable Primary Care Provider Unavailable Reason for Referral MRI/CAT/PET Scan (Routine) - Closed Specialty Diagnoses / Procedures Referred By Contact Refer red To Contact Radiology Diagnoses Pneumonitis Due To Inhalation Of Food And Vomit (HCC) Peng Tinajero M.D. [facility] Procedures CT Chest without IV Contrast [facility] [address] [place] [address] [phone] Referral ID Status Reason Start Date Expiration Date Visits Requ ested Visits Authorized [id number] Closed 12/28/2021 12/28/2022 1 1 Reason for Visit MRI/CAT/PET Scan (Routine) - Closed Specialty Diagnoses / Procedures Referred By Contact Refer red To Contact Radiology Diagnoses Pneumonitis Due To Inhalation Of Food And Vomit (HCC) Peng Tinajero M.D. [facility] Procedures CT Chest without IV Contrast UT CT [facility] [address] [place] [address] [phone] Referral ID Status Reason Start Date Expiration Date Visits Requ ested Visits Authorized [id number] Closed 12/28/2021 12/28/2022 1 1 Encounter Details Date Type Department Care Team Description 03/02/2022 Hospital Encounter Department of Peng Tinajero, Pneumon itis Due To Radiology, Danny Tsang Inhalation Of Food Building, in [address] [place] [address] And Vomit (HCC) [place], [place] [address] [facility] [phone] [place], [place] [phone] (Work) [phone] Social History Tobacco Use Types Packs/Day Years [...] How often do you attend adventism or religion More than 4 time s [...] Gastroenterology and Hepatology Lyric Coe M.D. [address] [place] [phone] ( fabiola) 09/01/2022 Appointment Gastroenterology and Hepatology Maurice Herrera M.D., Ph.D. [address] [place] [phone] ( fabiola) 09/02/2022 Appointment Gastroenterology and Hepatology Maurice Herrera M.D., Ph.D. [address] [place] [phone] ( fabiola) documented as of this encounter Procedures Procedure [...]
--- OUTSIDE RECORDS SUMMARY | 2022-07-22 11:01 | XMS_ITS | Encounter Summary ---
:1940 Author Organization [facility] Address [address] [place] [address] Care Team Providers Name Role Phone Unavailable Primary Care Provider Unavailable Reason for Visit MRI/CAT/PET Scan (Routine) - Modified Order Specialty Diagnoses / Procedures Referred By Contact Refer red To Contact Radiology Diagnoses Empyema Pleural (HCC) Maria G Adame P.A.-C., [facility] Procedures CT Chest without IV Contrast CT Chest with IV Contrast . [address] [place] [phone] Referral ID Status Reason Start Date Expiration Date Visits V isits Requested Authorized [id number] Modified 12/07/2021 12/07/2022 1 1 Order Encounter Details Date Type Department Care Team Description 12/28/2021 Hospital Encounter Department of Maria G Adame, Empyem a Pleural (HCC) Radiology, Danny Palmer, .[facility], in [address] [place] [address] [place] [phone] [place], [place] [phone] (Work) [phone] Social History Tobacco Use Types Packs/Day Years [...] How often do you attend jainism or holiness More than 4 time s per year 04/11/2022 services? Do you belong to any clubs or organizations Yes 04/11/2022 such as jainism groups, unions, fraShelfari or athletic groups, or school groups? How [...] and Hepatology Lyric Coe M.D. [address] [place] [address] [phone] ( rk) 09/01/2022 Appointment Gastroenterology and Hepatology Maurice Herrera M.D., Ph.D. [address] [place] [address] [phone] ( fabiola) 09/02/2022 Appointment Gastroenterology and Hepatology Maurice Herrera M.D., Ph.D. [address] [place] [address] [phone] ( fabiola) documented as of this encounter [...]
--- OUTSIDE RECORDS SUMMARY | 2022-07-22 11:01 | XMS_ITS | Encounter Summary ---
:1940 Author Organization [facility] Address [address] [place] [address] Care Team Providers Name Role Phone Unavailable Primary Care Provider Unavailable Reason for Referral Outpatient (Routine) - Closed Specialty Diagnoses / Procedures Referred By Contact Refer red To Contact Pulmonary Medicine Peng Tinajero M.D. [address] [phone] Referral ID Status Reason Start Date Expiration Date Visits Requ ested Visits Authorized [id number] Closed 12/28/2021 12/28/2022 1 1 Scheduling Instructions F/U pleural clinic. I am happy to see bu t if this doesn't work out he can be seen in pleural clinic. Reason for Visit Outpatient (Routine) - Closed Specialty Diagnoses / Procedures Referred By Contact Refer red To Contact Pulmonary Medicine Peng Tinajero M.D. [address] [phone] Referral ID Status Reason Start Date Expiration Date Visits Requ ested Visits Authorized [id number] Closed 12/28/2021 12/28/2022 1 1 Encounter Details Date Type Department Care Team Description 03/02/2022 Hospital Encounter Division of Jessa Heredia Pleural Pulmonary Medicine Trinh Mendes (Primary Dx) in [address] [place] [phone] [place], [place] [phone] (Work) [phone] Social History Tobacco Use Types Packs/Day Years [...] How often do you attend holiness or denominational More than 4 time s [...] Gastroenterology and Hepatology Lyric Coe M.D. [address] [place] [address] [phone] (Gary hicks) 09/01/2022 Appointment Gastroenterology and Hepatology Maurice Herrera M.D., Ph.D. [address] [place] [address] [phone] (Gary hicks) 09/02/2022 Appointment Gastroenterology and Hepatology Maurice Herrera M.D., Ph.D. [address] [place] [address] [phone] (Gary hicks) Scheduled Referrals Name Type Priority Associated Order Schedule Diagnoses Pulmonary Medicine Outpatient Referral Routine On ce for 1 office visit Occurrences sta rting (clinic) 03/02/2022 unti l 03/02/2022 documented as of this encounter Visit Diagnoses Diagnosis Effusion Pleural - Primary documented in this encounter
--- OUTSIDE RECORDS SUMMARY | 2022-07-22 11:01 | XMS_ITS | Encounter Summary ---
:1940 Author Organization [facility] Address [address] [place] [address] Care Team Providers Name Role Phone Unavailable Primary Care Provider Unavailable Reason for Visit Auth/Cert Specialty Diagnoses / Procedures Referred By Contact Refer red To Contact Diagnoses Hematemesis Hematemesis on Coumadin Procedures DIR Referral ID Status Reason Start Date Expiration Date Visits Requ ested Visits Authorized [id number] 1 1 Encounter Details Date Type Department Care Team Description 12/09/2021 - Hospital Encounter [facility] Kong Coates M.D. [address] [place] [phone] Hematemesis [facility] [address] [place] [phone] (Primary Dx) [facility], Fourth Floor [address] [place] [address] Social History Tobacco Use Types [...] How often do you attend voodoo or taoist More than 4 time s [...] care provider on file. Discharge Provider Team: [facility] Internal Medicine ([facility]) RST Medicine 8 ([facility]) Primary Care Provider Phone Number: None Primary [...] B 02 Admitting/Central Scheduling 12/28/2021 8:20 AM [facility] 809 Radiology 12/28/2021 1:30 PM Peng Tinajero M.D. Pulmonary Medicine For appointment details refer to your Patient Appointment Guide. TEST RESULTS PENDING AT DISCHARGE Pending Labs None DETAILS OF HOSPITAL STAY REASON FOR ADMISSION Hematemesis HOSPITAL COURSE Mr. 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 Is very active. He has a [...] 1968, incl last a Heller's procedure at [facility] 11/2020. On 12/09, he presented via EMS to [facility] Emergency Department with concerns of weaknessand coffee ground emesis. Apparently EMS noted ice cream container worth of reddish vomit that they thought was blood. SBP was90s but improved to 120s with 1.5 L IVF. He was not transfused at the OSH ED as Hb was 12.2. He was given Kcentra (INR was 1.4) and 40 mg IV pantoprazole and directly admitted to [facility],Medicine 8 service for ongoing management. On [...] Mr. David Castro today and provided counseling [id number] at bedside. I personally spent over half of a total 35 minutes in counseling and discussion with the patient and in coordination of care as described above to facilitate the hospital discharge. Discharge instructions were provided to the patient and caregiver(s). documented in this encounter Discharge Instructions Discharge InstructionsBernice Pisano - 12/10/2021 7:26 AM CDT You were discharged from the [facility] Medicine 8 ([facility]) Service. Please identify this service name if you call with questions after hospitalization. AppointmentsBernice Pisano - 12/10/2021 11:04 AM CDT Take a copy of this after visit summary to your appointment(s). DIVINA Van December 14, 2021 - Monday --10:05 AM - Hospital Follow-Up with Dr. Harish Silver, at [facility] Address: [address] [place] [address] [place] [address] If you have any questions, concerns, or need to reschedule please call [phone] documented in this encounter Medications at Time of Discharge Medication Sig Dispensed Refills Start Date End Date torsemide (DEMADEX) 20 Take 1 tablet (20 mg 0 mg tablet total) by mouth daily. allopurinol (ZYLOPRIM) Take 100 mg by mouth [...] 06/06/2022 mg tablet 2 mg on ///Mon. amoxicillin-pot [...] about patient's nutritional care please contact pager [phone] on weekdays or [phone] on weekends/holidays. Nicole Mendez APRN, C.N.P., D.N.P. [...] has been staffed with Dr. Kennedy, Nephrology specialty development consultant. For questions or concerns, please contact Neph A ESRD pager at [phone]. Sherri Alarcon R.R.T., L.R.T. - 12/11/2021 1:41 [...] male who was recently discharged from our [address] service following an admission for a [...] team's plan of care. Counseling was provided [id number] at bedside regarding the plan of care [...] inpatient: [facility]02-12[facility] Home medications: ?? Held: warfarin, [...] pending hospital course Kasia Ridley PharmCodie, R.Ph. [phone] Maria G Adame P.A.-C., M.S. - 12/10/2021 7:10 AM CDT [facility] Medicine 8 ([facility]) Progress Note SUBJECTIVE Interval history: Patient was [...] / PLAN Mr. Castro is hospitalized on [place] [address] ([facility]) for evaluation and management of Hematemesis. 81 year old male admitted for weakness and coffee-ground emesis. Recently discharged [facility] after 6day admission for right pleural empyema. 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 EMS was called and he was taken to [facility] ED. Apparently EMS noted ice cream container worth of reddish vomit that they thought was blood. SBP was 90s but improved to 120s with 1.5 L IVF. He was not transfused at the OSH ED as Hb was 12.2. He was given Kcentra (INR was 1.4) and 40 mg IV pantoprazole and directly admitted to [facility] 8. #1 Weakness, generalized #2 Dark colored [...] care was discussed with Dr. Lozoya, HIM specialty development consultant. Counseling was provided [id number]-[id number] at bedside regarding the plan of care as stated above. I personally spent over half of a total 35 minutes in counseling and coordination of care as documented above. Maria G Adame P.A.-C., M.S. Medicine 7 - [id number] Addendum: EGD showed stasis ulcer, and brownish [...] Status Comment 12/09/2021 2:28 PM Per 12/08 [facility] discharge AVS Taking? Last Dose Informant Start [...] M.B., Ch.B. - 12/09/2021 7:19 PM CDT [facility] Medicine 8 ([facility]) Admission Note SUBJECTIVE CHIEF COMPLAINT Coffee ground emesis x6 last night HISTORY OF PRESENT ILLNESS Mr. David Castro is a 81 y.o. male who was [facility] only yesterday having been admitted [...] 1968, incl last a Heller's procedure at [place] [facility] 11/2020), HTN, and ELENI on CPAP. [...] called EMS and he was taken to [facility] ED. Apparently EMS did take [...] is not in the electronic chart. No extra-SCIENTIST ENGINEER infectious source was found and he has had no further SCIENTIST ENGINEER infection. -?LP done apparently here for low [...] he can only swallow soup. -NPO at [place] in case of EGD in am. Tubes/lines: PIV x2 ordered. VTE prophylaxis: SCD only given bleeding. Code status: Full Code, discussed. Baseline Mobility: BMAT Level 4 (Able to stand and walk) Disposition: Home Counseling was provided [id number] at bedside regarding the plan of care [...] was reviewed with Dr. Kennedy, Nephrology A specialty development consultant For questions or concerns, please page the Nephrology A ENTERPRISE ARCHITECT/PA pager ([phone]). Associated attestation - Yamileth Kennedy M.D., Ph.D. [...] transportation. Education on diet recommendations provided by bridge toll collector. VSS. Belongings sent with patient. Problem: PAIN [...] Mr. 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 Is very active. He has a [...] 1968, incl last a Heller's procedure at [facility] 11/2020. On 12/09, he presented via EMS to [facility] Emergency Department with concerns of weaknessand coffee ground emesis. Apparently EMS noted ice cream container worth of reddish vomit that they thought was blood. SBP was90s but improved to 120s with 1.5 L IVF. He was not transfused at the OSH ED as Hb was 12.2. He was given Kcentra (INR was 1.4) and 40 mg IV pantoprazole and directly admitted to [facility],Medicine 8 service for ongoing management. On [...] Gastroenterology and Hepatology Lyric Coe M.D. [address] [place] [phone] (Gary hicks) 09/01/2022 Appointment Gastroenterology and Hepatology Maurice Herrera M.D., Ph.D. [address] [place] [phone] (Gary hicks) 09/02/2022 Appointment Gastroenterology and Hepatology Maurice Herrera M.D., Ph.D. [address] [place] [phone] (Gary hicks) documented as of this encounter [...] 12/11/2021 DTL Black/ mL/min/BSA 9:18 AM CDT Bolivian Comment: ----ADDITIONAL INFORMATION---- Estimated GFR [...] [facility] - [address] [place], [place] [address] [facility] [address] Laboratories-[facility] [address] (ABNORMAL) CBC without Differential (12/11/2021 7:30 AM CDT) [facility] gist Method Time Signature Hemoglobin 8.8 (L) [...] M.S. LAB BLOOD ADD-ON Performing Organization Address City/[facility] Phon e Number [facility] [address] (ABNORMAL) Hemoglobin (12/10/2021 4:17 PM CDT) P athologist Signature Hemoglobin 10.7 (L) 13.2 - 16.6 12/10/2021 DTL g/dL 5:00 PM CDT Specimen Anatomical Collection Method Collection Time Receive d Time (Source) Location / / Volume Laterality Blood (Blood, 12/10/2021 4:17 PM 12/11/19 4:49 Venous) CDT PM CDT Maria G Adame P.A.-C., M.S. LAB BLOOD ADD-ON Performing Organization Address City/[facility] Phon e Number [facility] [address] Upper GI Endoscopy (12/10/2021 11:53 AM CDT) Specimen (Source) Anatomical Collection Method Collection Time Re ceived Time Location / / Volume Laterality 12/10/2021 11:53 AM CDT Impressions [facility] - 12/10/2021 4:10 PM CDT Post-op Diagnoses: [...] bulb. ? - No specimens collected. Narrative [facility] - 12/10/2021 4:10 PM CDT Saul 6 GI GI Patient Name: David Castro Date of : 1940 Age: 81 Gender: Male Procedure Date: 12/10/2021 Procedure: ? Upper GI endoscopy Providers: ? Lukasz Flannery MD, Connor Potter MD ? (Meliza llow) Referring Provider: ?Lorne Galloway Pre-op Diagnoses: ?Coffee-grou nd emesis Recommendation: ? - Return patient to hospital [facility] for ongoing care. ? - Follow an antireflux regimen PO PPI 40 mg BID indefinitely and [...] aspirated ? allowing adequate assessment of t he esophageal mucosa. From 40 to 35 cm [...] No immedia te complications. Sedation: ? General regional director Participation: I was present a nd participated during the entire ? pro cedure, including non-coughlin portions. Toby Flannery MD 12/10/2021 3:22:32 PM This report has been signed electronical ly. Number of Addenda: 0 Lorne Sanchez, Joie GI PROCEDURE ORDERABLES Performing Organization Address City/[facility] Code Phon e Number [facility] NA (ABNORMAL) Alkaline Phosphatase (12/10/2021 7:33 AM CDT) P athologist Signature Alkaline 229 (H) 40 - 129 12/10/2021 DTL Phosphatase, S U/L 1:14 PM CDT Specimen Anatomical Collection Method Collection Time Receive d Time (Source) Location / / Volume Laterality Blood (Blood, 12/10/2021 7:33 AM 12/11/19 Venous) CDT 12:43 PM CDT Maria G Adame P.A.-C., M.S. LAB BLOOD ADD-ON Performing Organization Address City/[facility] Code Phon e Number [facility] - [address] (ABNORMAL) GGT (Gamma-Glutamyltransferase) (12/10/2021 7:33 AM [...] M.S. LAB BLOOD ADD-ON Performing Organization Address City/[facility] Phon e Number [facility] - [address] Phosphorus Inorganic (12/10/2021 7:33 AM CDT) P athologist Signature Phosphorus 3.4 2.5 - 4.5 12/10/2021 DTL (Inorganic), S mg/dL 9:20 AM CDT Specimen Anatomical Collection Method Collection Time Receive d Time (Source) Location / / Volume Laterality Blood (Blood, 12/10/2021 7:33 AM 12/11/19 8:15 Venous) CDT AM CDT Maria G Adame P.A.-C., M.S. LAB BLOOD ADD-ON Performing Organization Address [facility] Phon e Number [facility] - 200 [place], [place] [address] [place] [address] [place] [address] [facility] 200 [facility] (ABNORMAL) CBC without Differential (12/10/2021 7:33 AM CDT) [facility] Method Time Signature Hemoglobin 10.7 (L) [...] Ch.B. LAB BLOOD ADD-ON Performing Organization Address City/[facility]/ZIP Code Phon e Number [facility] - [address] [place] [address] [facility] [place] [address] [facility] [address] (ABNORMAL) Basic Metabolic Panel (12/10/2021 7:33 AM [...] 12/10/2021 DTL Black/ mL/min/BSA 8:31 AM CDT Bolivian Comment: ----ADDITIONAL INFORMATION---- Estimated GFR [...] Number [facility] - [address] [place], [place] [address] [facility] [address] Laboratories-[address] SARS Coronavirus 2, PCR Rapid, V (12/09/2021 7:48 PM CDT) [facility] Method Time Signature SARS CoV-2, Undetected Undetected 12/09/2021 [facility] PCR, Rapid, V 8:26 PM CDT Comment: ----ADDITIONAL INFORMATION---- This RT-PCR test was performed using the Penny SARS-CoV-2 and Influenza A/B Reagent assay from [employer], which has received Emergency Use Authori zation(EUA) by the U.S. Food and Drug Administration . Fact sheets for this Emergency Use Autho rization (EUA) assay can be found at the following link s: For Healthcare Providers: https://www.fda.gov/media/858247/downloa d For Patients: https://www.fda.gov/media/804046/downloa d SARS Coronavirus 2, Source, Rapid Swab, Nasopharynx 12/09/2021 8:00 PM CDT [facility] Specimen Anatomical Collection Method Collection Time Receive d Time (Source) Location / / Volume Laterality Varies 12/09/2021 7:48 PM 2 7:59 CDT PM CDT Marlyn Benson P.A.-C. LAB MICROBIOLOGY - GENERAL ORDERABLES Performing Organization Address City/State/ZIP Code Phon e Number [facility] - [address] [place], [place] [address] [facility] [address] [facility]-[address] ECG 12 Lead (12/09/2021 3:35 PM CDT) P athologist Signature Ventricular Rate 88 BPM MUSE ECG/Min QRSD Interval 124 ms MUSE QT Interval 398 ms MUSE QTC Interval 481 ms MUSE R [place] 0 degrees MUSE T Wave [place] -1 degrees MUSE Specimen Anatomical Collection Method [...] present Reviewed by NICHOL Vazquez Lorne Sanchez, ChBaileyB. ECG ORDERABLES Performing Organization Address City/State/ZIP Code Phon e Number MUSE MUSE NA Type and Screen (with reflex Antibody ID) (12/09/2021 3:15 PM CDT) Patholo gist Method Time Signature ABORh O Pos Not 12/09/2021 STRM applicable 4:06 PM CDT Antibody Negative Negative 12/09/2021 STRM Screen 4:17 PM CDT Type & Screen 12/12/2021 12/09/2021 STRM Expiration 23:59 4:06 PM CDT Testing Ken DEFAULT 12/09/2021 STRM Location 3:24 PM CDT Specimen Anatomical Collection Method Collection Time Receive d Time (Source) Location / / Volume Laterality Blood (Blood, 12/09/2021 3:15 PM 12/10/19 22 3:24 Venous) CDT PM CDT Lorne Sanchez, Ch.B. LAB BLOOD BANK TEST ORDERABL ES Performing Organization Address City/State/ZIP Code Phon e Number [facility] - [address] [place], [place] [address] [facility] [address] [facility] [address] (ABNORMAL) Basic Metabolic [...] 12/09/2021 DTL Black/ mL/min/BSA 4:43 PM CDT [place]ian Comment: ----ADDITIONAL INFORMATION---- Estimated [...] MEDICAL CENTER LABOR[facility]IES - [address] [place], [place] [address] [facility] [address] [facility] [address] (ABNORMAL) CBC without Differential (12/09/2021 3:14 PM CDT) [facility] Method Time Signature Hemoglobin 11.5 (L) 13.2 [...] [facility] - [address] [place], [place] [address] [facility] [address] [facility] [address] documented in this encounter Visit Diagnoses Diagnosis Hematemesis - Primary Hematemesis Atrial Fibrillation Paroxysmal (HCC) Prison (Current) Anticoagulant Treatm ent Hypoalbuminemia Dialysis Peritoneal [...] mL/hr, intravenous, Continuous, Starting on Mon12/09/21 at 2044, For 13 hours gentamicin 0.1 % ointment [...] mEq (KLORCON/K-TAB) 10 mEq, oral, Once, On Mon12/09/21 at 2045, For 1 dose, Swallow whole. [...] mg (APRESOLINE) (CANCELED) 2028 (Given - Provider: Suzy AroraNBailey) 0803 (Given - Provider: Janeth Nicole R.N.)1412 (Given - Provider: Janeth Nicole R.N.) 10 mg, oral, 3 times daily, First dose on Alyssa 12/09/21 at 2100 isosorbide dinitrate tablet 2.5 mg (ISORDIL) 0548 (Given - Provider: Suzy AroraNBailey)1118 (Not Given - Provider: Janeth Nicole R.N. - Reason: Patient not available)1614 (Given - Provider: Janeth Nicole R.N.) 0614 (Given - Provider: Randee Gandhi R.N.)1114 (Given - Provider: Janeth Nicole R.N.) 2.5 mg, oral, 3 times daily before meals , First dose on Mon12/10/21 at 0700, HOLD for SBP <100 metoprolol tartrate tablet 25 mg (LOPRESSOR) 2028 (Giv en - Provider: Cecelia Winkler R.N.) 0803 (Given - Provider: Janeth Nicole R.N.)195 (Given - Provider: Randee Gandhi R.N.) 0958 [...] eat) 0615 (Given - Provider: Randee Gandhi R.N.) 1 [...] 2119 (New Bag - Provider: Cecelia Winkler RNicholas) [...]
--- OUTSIDE RECORDS SUMMARY | 2022-07-22 11:01 | XMS_ITS | Encounter Summary ---
:1940 Author Organization [facility] Address [address] [place] [address] Care Team Providers Name Role Phone Unavailable Primary Care Provider Unavailable Reason for Referral Outpatient (Routine) - Closed Specialty Diagnoses / Procedures Referred By Contact Refer red To Contact Diagnoses Effusion Pericardial Acute (HCC) Jessa Heredia M.D. [facility] Procedures Echo Transthoracic (TTE) [address] [place] [address] Referral ID Status Reason Start Date Expiration Date Visits Requ ested Visits Authorized [id number] Closed 03/02/2022 03/02/2023 1 1 Outpatient (Routine) - Closed Specialty Diagnoses / Procedures Referred By Contact Refer red To Contact Diagnoses Effusion Pericardial Acute (HCC) Jessa Heredia M.D. [facility] Procedures ECG 12 Lead [address] [place] [address] Referral ID Status Reason Start Date Expiration Date Visits Requ ested Visits Authorized [id number] Closed 03/02/2022 03/02/2023 1 1 Outpatient (Routine) - Closed Specialty Diagnoses / Procedures Referred By Contact Refer red To Contact Cardiovascular Diseases / Diagnoses Effusion Pericardial Acute (HCC) Jessa Heredia [facility] Cardiovascular Disease Trinh [address] [place] [address] Referral ID Status Reason Start Date Expiration Date Visits Requ ested Visits Authorized [id number] Closed 03/02/2022 03/02/2023 1 1 Encounter Details Date Type Department Care Team Description 03/02/2022 Orders Only Division of Pulmonary Jessa Heredia, Effusion Pericardial Medicine in M.DBailey Acute (HCC) (Primary [place], [place] [address] [facility] Dx) [address] [place] [phone] Social History Tobacco Use Types Packs/Day Years [...] How often do you attend spiritism or buddhist More than 4 time s [...] Gastroenterology and Hepatology Lyric Coe M.D. [address] [place] [phone] (Wo rk) 09/01/2022 Appointment Gastroenterology and Hepatology Maurice Herrera M.D., Ph.D. [address] [place] [phone] (Wo rk) 09/02/2022 Appointment Gastroenterology and Hepatology Maurice Herrera M.D., Ph.D. [address] [place] [phone] (Gary rk) Scheduled Referrals Name Type Priority Associated Order Schedule Diagnoses Cardiovascular Disease Outpatient Routine Effusion Expec herminia: - General cardiology Referral Pericardial Acute consult (clinic) (HCC) (Approximat e), Expires: 06/02/2023 documented as of this encounter Results (TTE) 2D ECHO DOPPLER COLOR (04/05/2022 3:55 PM CDT) [facility] Method Time Signature Ejection Fraction 66 [...] was performed but not reported based on safety director's judgment. No regional wall motion abnormalities. [...] 04/07/2022 For the complete report, see the [employer] Documents. Final Impressions 1. Normal left ventricular [...] Signature Ventricular Rate 62 BPM MUSE ECG/Min [place] Interval 206 ms MUSE QRSD Interval 128 ms MUSE QT Interval 446 ms MUSE QTC Interval 452 ms MUSE P [place] 10 degrees MUSE R [place] 6 degrees MUSE T Wave [place] 26 degrees MUSE Specimen Anatomical Collection Method Collection Time Receive d Time (Source) Location / / Volume Laterality 04/05/2022 2:01 PM 08/16/202 2 2:08 CDT PM CDT Impressions MUSE [...] 15 :35, Rhythm has changed Reviewed by NIHCOL Blanco Jessa Heredia M.D. ECG ORDERABLES Performing Organization Address City/State/ZIP Code Phon e Number MUSE MIKE NA documented in this encounter Visit Diagnoses Diagnosis Effusion Pericardial Acute (HCC) - Prima ry Effusion Pericardial Acute (HCC) documented in this encounter
--- OUTSIDE RECORDS SUMMARY | 2022-07-22 11:01 | XMS_ITS | Encounter Summary ---
:1940 Author Organization [facility] Address [address] [place] [address] Care Team Providers Name Role Phone Unavailable Primary Care Provider Unavailable Encounter Details Date Type Department Care Team Description 12/13/2021 Clinical Communication RST Vidhya Villatoro [address] [facility] [place] [place] [phone] [address] [place] [phone] Social History Tobacco Use Types Packs/Day Years [...] How often do you attend alevism or buddhism More than 4 time s [...] and Hepatology Lyric Coe M.D. [address] [place] [phone] (Wo rk) 09/01/2022 Appointment Gastroenterology and Hepatology Maurice Herrera M.D., Ph.D. [address] [place] [phone] (Wo rk) 09/02/2022 Appointment Gastroenterology and Hepatology Maurice Herrera M.D., Ph.D. [address] [place] [phone] (Wo rk) documented as of this encounter Visit Diagnoses Diagnosis Achalasia - Primary documented in this encounter
--- OUTSIDE RECORDS SUMMARY | 2022-07-22 11:01 | XMS_ITS | Encounter Summary ---
:1940 Author Organization [facility] Address [address] [place] [address] Care Team Providers Name Role Phone Unavailable Primary Care Provider Unavailable Encounter Details Date Type Department Care Team Description 12/09/2021 Clinical Communication [facility], Gurpreet Adame, [facility], P.A.Farhan, M.S . [facility], [address] [place] [address] Third Floor [place], [place] [address] [place] [phone] [place], [place] [phone] (Work) [phone] Social History Tobacco Use Types Packs/Day Years [...] How often do you attend confucianist or buddhism More than 4 time s [...] Gastroenterology and Hepatology Lyric Coe M.D. 200 [place] [phone] (Wo rk) 09/01/2022 Appointment Gastroenterology and Hepatology Maurice Herrera M.D., Ph.D. 200 [place] [phone] (Wo rk) 09/02/2022 Appointment Gastroenterology and Hepatology Maurice Herrera M.D., Ph.D. [address] [place] [phone] (Wo rk) documented as of this encounter Visit Diagnoses Not on filedocumented in this encounter
--- OUTSIDE RECORDS SUMMARY | 2022-07-22 11:01 | XMS_ITS | Encounter Summary ---
:1940 Author Organization [facility] Address [address] [place] [address] Care Team Providers Name Role Phone Unavailable Primary Care Provider Unavailable Reason for Referral Outpatient (Routine) - Closed Specialty Diagnoses / Procedures Referred By Contact Refer red To Contact Pulmonary Medicine Diagnoses Empyema Pleural [facility]CC) [facility] Estela M.SBailey [address] [place] [phone] Referral ID Status Reason Start Date Expiration Date Visits Requ ested Visits Authorized [id number] Closed 12/07/2021 12/07/2022 1 1 Reason for Visit Outpatient (Routine) - Closed Specialty Diagnoses / Procedures Referred By Contact Refer red To Contact Pulmonary Medicine Diagnoses Empyema Pleural (HCC) Maria G Adame [facility] Estela, M.S. [address] [place] [phone] Referral ID Status Reason Start Date Expiration Date Visits Requ ested Visits Authorized [id number] Closed 12/07/2021 12/07/2022 1 1 Encounter Details Date Type Department Care Team Description 12/28/2021 Hospital Encounter Division of Lior, Peng Emerson Empyema Pleural Pulmonary Medicine Trnih ([facility]) in [place], [address] [place], [place] [address] [place] [phone] [place], [place] [phone] (Work) [phone] Social History Tobacco Use Types Packs/Day Years [...] How often do you attend quaker or baptism More than 4 time s per year [...] He is a delightful 81-year-old man from [place], [place], who was recently hospitalized from 12/02 [...] follow-up CT scan done at [facility]. We discussed elevation of the head of the bed in detail, given his recurrent risk for aspiration pneumonia. He also is taking an antiacid pill and avoiding meals before he goes to bed. Given his achalasia, he is on a liquid diet. MARGIN CODE: E5, 50 minutes. Peng Tinajero M.D. CT CT Job ID: [id number] documented in this encounter Plan of Treatment Upcoming Encounters Date Type Specialty Care Team Description 09/01/2022 Appointment Gastroenterology and Hepatology Lyric Coe M.D. [address] [place] [phone] (Wo ) 09/01/2022 Appointment Gastroenterology and Hepatology Maurice Herrera M.D., Ph.D. [address] [place] [phone] (Wo rk) 09/02/2022 Appointment Gastroenterology and Hepatology Maurice Herrera M.D., Ph.D. [address] [place] [phone] (Wo rk) Scheduled Referrals Name Type Priority Associated Order Schedule Diagnoses Pulmonary Medicine Outpatient Referral Routine Empyema Pleural Once for 1 - Pleural Disease (HCC) Occurrence s starting consult (clinic) 12/28/2021 until 12/28/2021 documented as of this encounter Visit Diagnoses Diagnosis Empyema Pleural (HCC) documented in this encounter
--- OUTSIDE RECORDS SUMMARY | 2022-07-22 11:01 | XMS_ITS | Encounter Summary ---
:1940 Author Organization [facility] Address [address] [place] [address] Care Team Providers Name Role Phone Unavailable Primary Care Provider Unavailable Reason for Referral Outpatient (Routine) - Closed Specialty Diagnoses / Procedures Referred By Contact Refer red To Contact Pulmonary Medicine Peng Tinajero M.D. [facility] [address] [place] [address] Referral ID Status Reason Start Date Expiration Date Visits Requ ested Visits Authorized [id number] Closed 12/28/2021 12/28/2022 1 1 Scheduling Instructions F/U pleural clinic. I am happy to see bu t if this doesn't work out he can be seen in pleural clinic. RI/CAT/PET Scan (Routine) - Closed Specialty Diagnoses / Procedures Referred By Contact Refer red To Contact Radiology Diagnoses Pneumonitis Due To Inhalation Of Food And Vomit (HCC) Peng Tinajero M.D. [facility] Procedures CT Chest without IV Contrast [place] CT THORAX WO [facility]TRST [address] [place], [place] [phone] Referral ID Status Reason Start Date Expiration Date Visits Requ ested Visits Authorized [id number] Closed 12/28/2021 12/28/2022 1 1 Encounter Details Date Type Department Care Team Description 12/28/2021 Orders Only Division of Pulmonary Peng Tinajero, Pneum onitis Due To Medicine in [place]. Inhalation Of Food And [place] [address] [facility] Vomit (HCC) [address] [place] [phone] [phone] Social History Tobacco Use Types Packs/Day Years [...] How often do you attend jew or samaritan More than 4 time s [...] Appointment Gastroenterology and Hepatology Lyric Coe M.D. [address] [place] [phone] (Wo rk) 09/01/2022 Appointment Gastroenterology and Hepatology Maurice Herrera M.D., Ph.D. [address] [place] [address] (Wo rk) 09/02/2022 Appointment Gastroenterology and Hepatology Maurice Herrera M.D., Ph.D. [address] [place] [phone] (Wo rk) Scheduled Referrals Name Type Priority Associated Diagnoses Order S [facility] Pulmonary Medicine Outpatient Referral Routine Ex [...] findings are otherwise stable. Peng Tinajero M.D. IMMike CT PROCEDURES documented in this encounter Visit Diagnoses Diagnosis Pneumonitis Due To Inhalation Of Food An d Vomit (HCC) Pneumonitis Due To Inhalation Of Food An d Vomit (HCC) documented in this encounter
--- OUTSIDE RECORDS SUMMARY | 2022-07-22 11:01 | XMS_ITS | Encounter Summary ---
:1940 Author Organization [facility] Address [address] [place] [address] Care Team Providers Name Role Phone Unavailable [...] How often do you attend anabaptism or evangelical More than 4 time s [...] and Hepatology Lyric Coe M.D. [address] [place] [phone] (Wo rk) 09/01/2022 Appointment Gastroenterology and Hepatology Maurice Herrera M.D., Ph.D. [address] [place] [phone] (Wo rk) 09/02/2022 Appointment Gastroenterology and Hepatology Maurice Herrera M.D., Ph.D. [address] [place] [address] [phone] (Wo rk) documented as of this encounter [...]
--- OUTSIDE RECORDS SUMMARY | 2022-07-22 11:01 | XMS_ITS | Encounter Summary ---
:1940 Author Organization [facility] Address [address] [place] [address] Care Team Providers Name Role Phone Unavailable Primary Care Provider Unavailable Encounter Details Date Type Department Care Team Description 12/08/2021 Orders Only Division of Nephrology and [place], Lyric Leiva PRN, Hypertension, Congregational C.N.P. [place], in [place] [address] [address] [place], [place] [address] [place] [phone] [place] [phone] Social History Tobacco Use Types Packs/Day Years [...] How often do you attend jewish or nondenominational More than 4 time s [...] Gastroenterology and Hepatology Lyric Coe M.D. [address] [place] [phone] (Wo rk) 09/01/2022 Appointment Gastroenterology and Hepatology Maurice Herrera M.D., Ph.D. [address] [place] [phone] (Wo rk) 09/02/2022 Appointment Gastroenterology and Hepatology Maurice Herrera M.D., Ph.D. [address] [place] [phone] (Wo rk) documented as of this encounter Visit Diagnoses Not on filedocumented in this encounter Additional Health Concerns Infection Onset Date Last Indicated Resolved Time COVID19 Pending 12/09/2021 12/09/2021 12/09/2021 8:00 PM CDT COVID19 Pending 12/09/2021 12/09/2021 12/09/2021 8:26 PM CDT documented as of this encounter
--- OUTSIDE RECORDS SUMMARY | 2022-07-22 11:01 | XMS_ITS | Encounter Summary ---
:1940 Author Organization [facility] Address [address] [place] [address] Care Team Providers Name Role Phone Unavailable Primary Care Provider Unavailable Encounter Details Date Type Department Care Team Description 12/27/2021 Clinical Communication Visit Review in [place], [place] [address] [place], [place] [phone] Social History Tobacco Use Types Packs/Day Years [...] How often do you attend spiritism or confucianist More than 4 time s per year [...] Gastroenterology and Hepatology Lyric Coe M.D. [address] [place] [address] [phone] (Wo rk) 09/01/2022 Appointment Gastroenterology and Hepatology Maurice Herrera M.D., Ph.D. [address] [place] [address] [phone] (Wo rk) 09/02/2022 Appointment Gastroenterology and Hepatology Maurice Herrera M.D., Ph.D. [address] [place] [phone] (Wo rk) documented as of this encounter Visit Diagnoses Not on filedocumented in this encounter
--- OUTSIDE RECORDS SUMMARY | 2022-07-22 11:01 | XMS_ITS | Encounter Summary ---
:1940 Author Organization [facility] Address [address] [place] [address] Care Team Providers Name Role Phone Unavailable Primary Care Provider Unavailable Reason for Visit Auth/Cert Specialty Diagnoses / Procedures Referred By Contact Refer red To Contact Diagnoses Hematemesis Hematemesis on Coumadin Procedures DIR Referral ID Status Reason Start Date Expiration Date Visits Requ ested Visits Authorized [id number] 1 1 Encounter Details Date Type Department Care Team Description 12/10/2021 Anesthesia Event Division of Gastroenterology Jamel Powers in [facility] bret Shah CRIMPER ASSEMBLER, SOLUTIONS SPECIALIST, [address] [place] [address] [facility] [phone] [place] [address] Anesthesia Record Procedure Summary Procedure [...] h andoff to the receiving staff during [facility] ch we 1. Identified the patient [...] Roesner, Justin C, Time: 1218 (created via CRIMPER ASSEMBLER, ZACH, D.N.P. CRIMPER ASSEMBLER, SOLUTIONS SPECIALIST, DNAP procedure documentation); Mask Ventilation: Not attempted; [...] How often do you attend amish or jehovah's witness More than 4 time [...] Room / Location: Division of Gastroenterology in [place], [place] Anesthesia Start: 1210 Anesthesia Stop: 1256 [...] ETT location: oral VL device: glide scope [place] scope blade size: 3 Adult tube size: [...] EGD (ESOPHAGEALGASTRODUODENOSCOPY) Location: Division of Gastroenterology in [place], [place] Pertinent components of the patient's history [...] with patient /legal guardian or through an clinical field specialist. Risks/Benefits/Alternatives of Blood transfusion discussed with patient [...] and Hepatology Lyric Coe M.D. [address] [place] [address] [phone] (Wo rk) 09/01/2022 Appointment Gastroenterology and Hepatology Maurice Herrera M.D., Ph.D. [address] [place] [address] [phone] (Wo rk) 09/02/2022 Appointment Gastroenterology and Hepatology Maurice Herrera M.D., Ph.D. [address] [place] [address] [phone] (Wo rk) documented as of this encounter [...] CRNA, D.N.P. Authorized by: Bassam Hunt APRN, ZACH, D.N.P. Patient location during procedure: OR / Procedure Area PROCEDURE DETAILS: Mask difficulty assessment: not attempte d Final airway type: video laryngoscope Laryngeal manipulation: yes (RSI w/ cric oid pressure.) Final best view of glottic structures - Cormack/Lehane Score: grade 1 ETT location: oral VL device: glide scope [place] scope blade size: 3 Adult tube size: [...]
--- OUTSIDE RECORDS SUMMARY | 2022-07-22 11:01 | XMS_ITS | Encounter Summary ---
:1940 Author Organization [facility] Address [address] [place] [address] Care Team Providers Name Role Phone Unavailable Primary Care Provider Unavailable Reason for Visit Reason Comments Med Refill Encounter Details Date Type Department Care Team Description 01/26/[address] [facility], [facility], Estela Cummins, Med Refill [facility], [facility] [address] [place] [address] [place] [phone] [place] [phone] Social History Tobacco Use Types Packs/Day Years [...] How often do you attend restorationist or hoahaoism More than 4 time s [...] and Hepatology Lyric Coe M.D. [address] [place] [address] [phone] (Gary hicks) 09/01/2022 Appointment Gastroenterology and Hepatology Maurice Herrera M.D., Ph.D. [address] [place] [address] [phone] (Gary hicks) 09/02/2022 Appointment Gastroenterology and Hepatology Maurice Herrera M.D., Ph.D. [address] [place] [address] [phone] (Gary hicks) documented as of this encounter Visit Diagnoses Not on filedocumented in this encounter
--- OUTSIDE RECORDS SUMMARY | 2022-07-22 11:01 | XMS_ITS | Encounter Summary ---
:1940 Author Organization [facility] Address [address] [place] [address] Care Team Providers Name Role Phone Unavailable Primary Care Provider Unavailable Reason for Referral Outpatient (Routine) - Authorized Specialty Diagnoses / Procedures Referred By Contact Refer red To Contact Diagnoses Effusion Pericardial Acute (HCC) Chronic Systolic (Congestive) Heart Failure (HCC) Atrial Fibrillation Paroxysmal (HCC) Bundle Branch Block Left Dialysis Peritoneal Status (HCC) Mehrdad Lazcano [facility] Procedures ECG Heart rhythm monitor (Holter) C.N.P. [address] [place] [address] Referral ID Status Reason Start Date Expiration Date Visits V isits Requested Authorized [id number] Authorized 03/08/2022 03/08/2023 1 1 Reason for Visit Reason Comments Triage Encounter Details Date Type Department Care Team Description 03/02/2022 Clinical Communication Department of Rnp, [facility] Cardiovascular Medicine Trinh Alcaraz in [facility] rotary driller [address] [place] [phone] Social History Tobacco Use Types Packs/Day [...] How often do you attend lutheran or pentecostalism More than 4 time s per year 04/11/2022 services? Do you belong to any clubs or organizations Yes 04/11/2022 such as lutheran groups, unions, fraDocSea or athletic groups, or school groups? How [...] holter very appropriate. Thank you, Mehrdad Lazcano, EXTRUDER TENDER Telephone Encounter - Tana Ren R.N. - [...] Gastroenterology and Hepatology Lyric Coe M.D. [address] [place] [phone] (Gary hicks) 09/01/2022 Appointment Gastroenterology and Hepatology Maurice Herrera M.D., Ph.D. [address] [place] [phone] (Gary hicks) 09/02/2022 Appointment Gastroenterology and Hepatology Maurice Herrera M.D., Ph.D. [address] [place] [phone] (Gary hicks) documented as of this encounter Results HOLTER MONITOR - IN CLINIC MANAGER INTEGRATED (04/05/2022 6:00 AM CDT) P athologist Signature [...] Duration 6h 30m duration INFOBIONIC MOME AF [place] 29 percent INFOBIONIC MOME Longest AF 7h [...] seen singly at and around these times. Executive Marketing Assistant: Marilou Zimmer / Violet Cotton Fellow: Clemente [...] seen singly at and around these times. Executive Marketing Assistant: Marilou Zimmer / Violet Cotton Fellow: Clemente Dos Santos MD Mehrdad Lazcaon APRN, C.N.P. CV CARDIAC SERVICES PRO CEDURES Performing Organization Address City/State/ZIP Code Phon e Number INFOBIONIC MOME INFOBIONIC MOME NA (ABNORMAL) Sedimentation Rate (04/04/2022 11:36 AM CDT) [employer] Method Time Signature Sedimentation 61 (H) 3 - 28 04/04/2022 DTL Rate, B mm/h 12:50 PM CDT Specimen Anatomical Collection Method Collection Time Receive d Time (Source) Location / / Volume Laterality Blood (Blood, 04/04/2022 11:36 04/04/2022 Venous) AM CDT 11:56 AM CDT Mehrdad Lazcano APRN, C.N.P. LAB BLOOD ADD-ON Performing Organization Address City/State/ZIP Code Phon e Number [facility] - [address] [place], [place] [address] [facility] [place] [address] Laboratories-[facility] [address] (ABNORMAL) CBC with Differential, Blood (04/04/2022 11:36 AM CDT) [employer] Method Time Signature Hemoglobin 11.7 (L) 13.2 [...] Organization Address City/State/ZIP Code Phon e Number [facility] - [address] [place], [place] [address] [facility] [place] [address] [facility] [address] (ABNORMAL) CRP (C-Reactive [...] C.N.P. LAB BLOOD ADD-ON Performing Organization Address City/[facility] Phon e Number [facility] - [address] (ABNORMAL) NT-Pro B-Type Natriuretic Peptide (BNP) [...] C.N.P. LAB BLOOD ADD-ON Performing Organization Address City/[facility] Code Phon e Number [facility] - [address] (ABNORMAL) Comprehensive Metabolic Panel (04/04/2022 11:35 [...] Organization Address City/State/ZIP Code Phon e Number [facility] - [address] [place], [place] [address] [facility] [place] [address] [facility] [address] documented in this [...]
--- OUTSIDE RECORDS SUMMARY | 2022-07-22 11:02 | XMS_ITS | Encounter Summary ---
:1940 Author Organization [facility] Address [address] [place] [address] Care Team Providers Name Role Phone Unavailable Primary Care Provider Unavailable Reason for Visit Outpatient (Routine) - Closed Specialty Diagnoses / Referred By Referred To Cont act Procedures Contact Gastroenterology and [place] Trang sanchez Hepatology Laura GranadosBBaileySBailey 200 [place] [address] Referral ID Status Reason Start Date Expiration Date Visits Requ ested Visits Authorized [id number] Closed 02/14/2019 02/14/2020 1 1 Encounter Details Date Type Department Care Team Description 02/20/2019 Office Visit Division of Kelechi Werner ([place] Gastroenterology in [place], Dx) [place], [place] Ph.D. [address] [place] [address] [place] [phone] [place], [place] [phone] Social History Tobacco Use Types Packs/Day Years [...] How often do you attend mormonism or hinduism More than 4 time s [...] Gastroenterology and Hepatology Lyric Coe M.D. 200 [place] [phone] (Gary hicks) 09/01/2022 Appointment Gastroenterology and Hepatology Maurice Herrera M.D., Ph.D. 200 [place] [phone] (Gary hicks) 09/02/2022 Appointment Gastroenterology and Hepatology Maurice Herrera M.D., Ph.D. [address] [place] [address] [phone] (Wo rk) documented as of this encounter Visit Diagnoses Diagnosis Achalasia - Primary documented in this encounter
--- OUTSIDE RECORDS SUMMARY | 2022-07-22 11:02 | XMS_ITS | Encounter Summary ---
:1940 Author Organization [facility] Address [address] [place] [address] Care Team Providers Name Role Phone Unavailable Primary Care Provider Unavailable Encounter Details Date Type Department Care Team Description 2021 Clinical Communication RST Simran Field [address] [facility] Estela Mendes, M.S. [place], [place] [address] [facility] [address] [place] [phone] Social History Tobacco Use Types Packs/Day Years [...] How often do you attend yazidism or episcopal More than 4 time s [...] Gastroenterology and Hepatology Lyric Coe M.D. [address] [place] [phone] (Wo rk) 09/01/2022 Appointment Gastroenterology and Hepatology Maurice Herrera M.D., Ph.D. [address] [place] [address] [phone] (Wo rk) 09/02/2022 Appointment Gastroenterology and Hepatology Maurice Herrera M.D., Ph.D. [address] [place] [phone] (Wo rk) documented as of this encounter Visit Diagnoses Diagnosis Achalasia - Primary documented in this encounter Additional Health Concerns Infection Onset Date Last Indicated Resolved Time COVID19 Pending 12/09/2021 12/09/2021 12/09/2021 8:00 PM CDT COVID19 Pending 12/09/2021 12/09/2021 12/09/2021 8:26 PM CDT documented as of this encounter
--- OUTSIDE RECORDS SUMMARY | 2022-07-22 11:02 | XMS_ITS | Encounter Summary ---
:1940 Author Organization [facility] Address [address] [place] [address] Care Team Providers Name Role Phone Unavailable Primary Care Provider Unavailable Encounter Details Date Type Department Care Team Description 2021 Ancillary Procedure Department of Radiology Gavin Andujar, in [facility] DWIGHT, C.N.P. [address] [facility] [address] [place] [address] [place] [phone] Social History Tobacco Use Types Packs/Day Years [...] How often do you attend alevism or mosque More than 4 time s [...] Gastroenterology and Hepatology Lyric Coe M.D. [address] [place] [phone] (Wo rk) 09/01/2022 Appointment Gastroenterology and Hepatology Maurice Herrera M.D., Ph.D. [address] [place] [address] [phone] (Wo rk) 09/02/2022 Appointment Gastroenterology and Hepatology Maurice Herrera M.D., Ph.D. [address] [place] [phone] (Wo rk) documented as of this encounter [...] OF OUTSIDE CT CHEST COMPARISON: ??Chest radiograph , 12/01/2021 FINDINGS: ?? Complex moderate right hydropneumothorax [...]
--- OUTSIDE RECORDS SUMMARY | 2022-07-22 11:02 | XMS_ITS | Encounter Summary ---
:1940 Author Organization [facility] Address [address] [place] [address] Care Team Providers Name Role Phone Unavailable [...] How often do you attend episcopalian or hindu More than 4 time s [...] Gastroenterology and Hepatology Lyric Coe M.D. [address] [place] [address] [phone] (Wo rk) 09/01/2022 Appointment Gastroenterology and Hepatology Maurice Herrera M.D., Ph.D. [address] [place] [address] [phone] (Wo rk) 09/02/2022 Appointment Gastroenterology and Hepatology Maurice Herrera M.D., Ph.D. [address] [place] [address] [phone] (Wo rk) documented as of this encounter [...]
--- OUTSIDE RECORDS SUMMARY | 2022-07-22 11:02 | XMS_ITS | Encounter Summary ---
:1940 Author Organization [facility] Address [address] [place] [address] Care Team Providers Name Role Phone Unavailable [...] How often do you attend orthodox or amish More than 4 time s [...] Gastroenterology and Hepatology Lyric Coe M.D. [address] [place] [address] [phone] (Wo rk) 09/01/2022 Appointment Gastroenterology and Hepatology Maurice Herrera M.D., Ph.D. [address] [place] [address] [phone] (Wo rk) 09/02/2022 Appointment Gastroenterology and Hepatology Maurice Herrera M.D., Ph.D. [address] [place] [address] [phone] (Wo rk) documented as of this encounter [...]
--- OUTSIDE RECORDS SUMMARY | 2022-07-22 11:02 | XMS_ITS | Encounter Summary ---
:1940 Author Organization [facility] Address [address] [place] [address] Care Team Providers Name Role Phone Unavailable Primary Care Provider Unavailable Encounter Details Date Type Department Care Team Description 12/06/2021 Clinical Communication Division of Pulmonary Samia Gonzales, Medicine in M.D., M[facility]H.P[facility] [place], [place] [address] [facility] [address] [place] [phone] Social History Tobacco Use Types Packs/Day Years [...] How often do you attend denominational or mandaen More than 4 time s [...] Gastroenterology and Hepatology Lyric Coe M.D. [address] [place] [phone] (Wo rk) 09/01/2022 Appointment Gastroenterology and Hepatology Maurice Herrera M.D., Ph.D. [address] [place] [phone] (Wo rk) 09/02/2022 Appointment Gastroenterology and Hepatology Maurice Herrera M.D., Ph.D. [address] [place] [phone] (Wo rk) documented as of this encounter Visit Diagnoses Diagnosis Empyema Pleural (HCC) documented in this encounter
--- OUTSIDE RECORDS SUMMARY | 2022-07-22 11:02 | XMS_ITS | Encounter Summary ---
:1940 Author Organization [facility] Address [address] [place] [id number] Care Team Providers Name Role Phone Unavailable [...] Stage 4 Glomerular Filtration Rate 15-29 (HCC) [facility] Hypertension Laura GranadosB.S. 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 Cough With Hemorrhage; [place], [address] [place] [address] Shortness Of Breath; [place], [place] Dysphagia; [address] [place] [phone] Gastroesophageal Reflux Disease Without Esophagitis; [place], [place] [phone] Laparoscopic M [place]otomy [place] [address] (Work) [phone] Social History Tobacco Use Types Packs/Day Years [...] How often do you attend tenriism or congregational More than 4 time s [...] hasnever been biopsied. He sees his local route carrier, , in [place] every 3 months. He has also seen [...] BREATH POST 02/20/2019 4.05 L Final ??? O9SbeRocn 02/20/2019 98.00 % Final ??? [id number] 02/20/2019 96.00 % Final ??? PulseRest 02/20/2019 [...] PEF PRE 02/20/2019 6.09 L/s Final ??? HFY72-03% 02/20/2019 1.30 L/s Final ??? FRCPLETH PROVBASE [...] to decline. Total time 30 minutes cell [id number] less than 50% counseling. Ferny Apodaca M.D. documented in this encounter Plan of Treatment Upcoming Encounters Date Type Specialty Care Team Description 09/01/2022 Appointment Gastroenterology and Hepatology Lyric Coe M.D. [address] [place] [address] [phone] (Wo rk) 09/01/2022 Appointment Gastroenterology and Hepatology Maurice Herrera M.D., Ph.D. [address] [place] [address] [phone] (Wo rk) 09/02/2022 Appointment Gastroenterology and Hepatology Maurice Herrera M.D., Ph.D. [address] [place] [address] [phone] (Wo rk) documented as of this encounter Visit Diagnoses Diagnosis Chronic Kidney Disease Stage 4 Glomerula r Filtration Rate 15-29 (HCC) - Primary Achalasia Cough With Hemorrhage Shortness Of Breath Dysphagia Gastroesophageal Reflux Disease Without Esophagitis Laparoscopic Myotomy For Achalasia Statu s Post documented in this encounter
--- OUTSIDE RECORDS SUMMARY | 2022-07-22 11:02 | XMS_ITS | Encounter Summary ---
:1940 Author Organization [facility] Address [address] [place] [address] Care Team Providers Name Role Phone Unavailable [...] How often do you attend jainism or alevism More than 4 time s [...] and Hepatology Lyric Coe M.D. [address] [place] [address] [phone] (Wo rk) 09/01/2022 Appointment Gastroenterology and Hepatology Maurice Herrera M.D., Ph.D. [address] [place] [address] [phone] (Wo rk) 09/02/2022 Appointment Gastroenterology and Hepatology Maurice Herrera M.D., Ph.D. [address] [place] [address] [phone] (Wo rk) documented as of this encounter [...]
--- OUTSIDE RECORDS SUMMARY | 2022-07-22 11:02 | XMS_ITS | Encounter Summary ---
:1940 Author Organization [facility] Address [address] [place] [address] Care Team Providers Name Role Phone Unavailable Primary Care Provider Unavailable Reason for Visit Auth/Cert Specialty Diagnoses / Procedures Referred By Contact Refer red To Contact Diagnoses Empyema Pleural (HCC) weakness Procedures DIR TO IP Referral ID Status Reason Start Date Expiration Date Visits Requ ested Visits Authorized [id number] 1 1 Encounter Details Date Type Department Care Team Description 2021 - [facility] John Paul Dockery M.D., M.P.H. [address] [place] [address] Hydropneumothorax (Primary Dx); [facility] [address] [place] [address] Empyema Pleural (HCC); [facility], Ace Menchaca M.D. Effusion Pleural; Domitilla Dysphagia; Building, [facility] Floor [address] [place] [address] [phone] Social History Tobacco Use Types Packs/Day Years [...] How often do you attend moravian or episcopal More than 4 time s per year 04/11/2022 services? Do you belong to any clubs or organizations Yes 04/11/2022 such as moravian groups, unions, fraDesktone or athletic groups, or school groups? How [...] CDT DISCHARGE SUMMARY BRIEF OVERVIEW Discharge Hospital: [facility] Discharge Provider: Arti Lozoya M.D. Discharge Provider Team: Hospital Internal Medicine (HIM) - [facility] Medicine 8 ([facility]) No primary care provider on file. [...] Admitting/Central Scheduling 12/28/2021 8:[address] [facility] Radiology 12/28/2021 1:30 PM Peng Tinajero M.D. Pulmonary Medicine For appointment details refer to your Patient Appointment Guide. TEST RESULTS PENDING AT DISCHARGE Pending Labs Order Current Status Fungal Culture, Routine In process DETAILS OF HOSPITAL STAY REASON FOR ADMISSION Empyema Pleural (HCC) HOSPITAL COURSE Mr. David Castro is a 81 y.o. male who presented to the [facility] ED with a chief complaint [...] both lower legs. He initially presented to [place] ED, then transitioned to [facility] for further care. Identified on CTperformed at [place] to have a complex hydropneumothorax with scattered [...] care was discussed with Dr. Lozoya, HIM workforce management consultant. I saw and evaluated MrBailey Castro today and provided counseling cmhe-os-phip at bedside. I personally spent a total of 35 minutes in counseling and coordination of care as described above to facilitate the hospital discharge. Discharge instructions were provided to the patient and caregiver(s). documented in this encounter Discharge Instructions Discharge InstructionsBernice Pisano - 2021 7:19 AM CDT You were discharged from the [place] [address] ([facility]) Service. Please identify this service name if you call with questions after hospitalization. AppointmentsBernice Pisano - 2021 2:46 PM CDT Take a copy of this after visit summary to your appointment(s). DIVINA Van December 09, 2021 - --4:10 PM - Hospital Follow-Up with Dr. Doran, at [facility] Address: [address] [place] [address]. [place] [address] If you have any questions, concerns, or need to reschedule please call [phone] AttachmentsThe following attachments cannot be sent through Care Everywhere. Amoxicillin/Clavulanate Potassium (By mouth) (Vietnamese)Gentamicin (On the skin) (Vietnamese)Cholecalciferol (By mouth) (Vietnamese)documented in this encounter Medications at Time of [...] he dismisses today as recommended by Nephrology workforce management consultant Dr. Kennedy. Addendum: Continue to hold his oral torsemide 40 mg daily in the setting of soft [facility] nurse in the [...] Plan was reviewed with Dr. Kennedy nephrology workforce management consultant. For questions or concerns, please page the Nephrology A CRIMINAL JUSTICE DEPARTMENT CHAIR/PA pager, [phone] or you may text page by clicking [...] each. See patient education flowsheet for details. Financial Institution Manager assisted with ordering late afternoon meal and breakfast. Patient stops eating by 3-4 pm and sits upright after all meals and while asleep. PLAN If patient remains hospitalized, may consider transitioning to regular diet to allow foods of his tolerance and preference. For questions about patient's nutritional care please contact pager [phone] on weekdays or [phone] on weekends/holidays. Juan Pablo Giron, Pharm.D., R.Ph. [...] questions about this note. Yue Perez O.T., [facility] - 12/07/2021 12:48 PM CDT [...] Service Consult Note SUBJECTIVE Referral Source: Jamal Anudjar, DWIGHT, C.N.P. Reason for Consult: Suspected empyema [...] pleural fluid when he was admitted to [facility] for heart failure (EF 25-30%). This pleural [...] was seen and discussed with the supervising workforce management consultant, Dr. Gonzales. We will sign off. Please contact [phone] with questions or concerns. Jaqueline Moseley M.D. [...] is glad to see the sun shining. Machine Setter Automatic initiated contact to introduce spiritual care department and to assess for potential spiritual care needs. Family: Mr. Castro's support system was at the bedside. Marixa Tradition: Mr. Castro is Pentecostalism, per his chart. He shares that he's been able to watch his moravian's services online and has found it to be comforting. Mr. Castro did not think he had any specific spiritual care needs at this time and was alerted to psychiatric nurse availability if any needs arise in the future. Plan: Will remain available for spiritual care as needed or requested. Chaplains can be contacted bypaging [phone] ([place]) or [phone] ([place]). Jeannine Jay APRN, C.N.P., M.S.N. [...] or concerns, please page the Nephrology A CRIMINAL JUSTICE DEPARTMENT CHAIR/PA pager, [phone] or you may text page by clicking here. Associated attestation - Yamileth Kennedy M.D., Ph.D. - 12/07/2021 2:18 PM CDT I was the supervising physician in the delivery of the service. Maria G Adame P.A.-C., M.S. - 12/07/2021 7:34 AM CDT [facility] Medicine 8 ([facility]) Progress Note SUBJECTIVE Interval history: [...] / PLAN Mr. Castro is hospitalized on [place] [address] ([facility]) for evaluation and management of Empyema Pleural(HCC). 81 year old male admitted for weakness and new right sided pleural effusion. He was brought to the ED after he was unable to stand to get out of his car due to acute onset of lower extremity weakness. Work up in the ED was notable for Initially He is admitted to [place] [address] for further evaluation. ?? #1 Weakness, generalized [...] weeks -follow up in Esophagus clinic -appreciate chain maker machine to discuss diet education ?? #13 Elevated [...] care was discussed with Dr. Lozoya, HIM workforce management consultant. Counseling was provided baut-eb-bhir at bedside regarding the plan of care as stated above. I personally spent over half of a total 35 minutes in counseling and coordination of care as documented above. Maria G Adame P.A.-C., M.S. [facility] 5 - [phone] [address] M.B.BBaileySBailey - 12/06/2021 3:58 PM [...] Please page the GI consult pager at [phone] with any further questions or concerns. Evette [...] feel free to discusswith Dr. Yamileth Kennedy, fork lift truck operator and IR. -- As patient NPO, please [...] or concerns, please page the Nephrology A CRIMINAL JUSTICE DEPARTMENT CHAIR/PA pager, [phone] or you may text page by clicking here. Associated attestation - Yamileth Kennedy M.D., Ph.D. - 12/06/2021 6:01 PM CDT I reviewed the case with the resident/fellow but did not see the patient. I agree with the assessment and plan as documented in the CRIMINAL JUSTICE DEPARTMENT CHAIR's note. Jaqueline Fontanez M.D. - 12/06/2021 10:32 [...] effusion. Images were saved and uploaded to [employer]. DIAGNOSTICS I have reviewed relevant laboratory, imaging, [...] pleural fluid when he was admitted to [facility] for heart failure (EF 25-30%). This pleural [...] was seen and discussed with the supervising workforce management consultant, Dr. Gonzales. We will continue to follow. Please contact [phone] with questions or concerns. Jaqueline Moseley M.D. [place] Fellow Associated attestation - Chely Gonzales M.D., [...] 5.) Constipation: Miralax daily [place]o [place], PharmD [phone] Simran Helm P.A.-C., M.S. - 12/06/2021 7:44 AM CDT [facility] Medicine 8 ([facility]) Progress Notes SUBJECTIVE The [facility] Medicine 8 ([facility]) service evaluated Mr. Castro this morning [...] 0659 12/06/21 0700 - 12/07/21 0659 Shift 6474-5751 5916-0434 7949-8473 24 Hour Total 7830-5272 6233-2143 0590-3822 24 Hour Total INTAKE P.O. 180 240 [...] CAM negative for acute delirium. 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 ASSESSMENT / PLAN Mr. Castro is hospitalized on [place] [address] ([facility]) for evaluation and management of Empyema Pleural(HCC). He was brought to the ED after he was unable to stand to get out of his car due to acute onset of lower extremity weakness. Additional workup in the ED concerning for recurrent pleural effusions/empyema as below. He is admitted to [place] [address] for further evaluation. #1 Weakness, generalized Improved [...] plan of care detailed above. I provided zqrh-kd-nmdw counseling at bedside regarding the plan of care. The patient acknowledged an understanding and agreed with the plan of care listed above. I personally spent over half of a total 40 minutes in counseling and coordination of care as documented above. Simran Helm M.S., PA-C Pager: [phone] Evette Pham APRN, C.N.P., D.N.P. - 12/05/2021 [...] or concerns, please page the Nephrology A CRIMINAL JUSTICE DEPARTMENT CHAIR/PA pager, [phone] or you may text page by clicking [...] effusion. Images were saved and uploaded to [employer] [facility] [employer]. DIAGNOSTICS I have reviewed relevant laboratory, imaging, [...] pleural fluid when he was admitted to [facility] for heart failure (EF 25-30%). This pleural [...] was seen and discussed with the supervising workforce management consultant, Dr. Means. We will continue tofollow. Please contact [phone] with questions or concerns. Avis Dobson. [place] Fellow Associated attestation - Will Means M.D. [...] 12/05/2021 6:58 AM CDT RST Medicine 8 ([facility]) Progress Notes SUBJECTIVE The [facility] Medicine 8 ([facility]) service evaluated Mr. Castro this morning [...] - 12/05/2165812/05/21 07 - 12/06/21 0659 Shift 0572-3077 9561-5213 6030-9673 24 Hour Total 9448-9444 0723-2431 9846-5113 24 Hour Total INTAKE P.O. 210 210 Other 10 0 10 Intermittent Medications 50 50 50 150 Shift Total(mL/kg) 270(3.4) 50(0.6) 50(0.6) 370(4.7) OUTPUT Urine(mL/kg/hr) 350(0.6) 275 625 Urine 350 275 625 Chest Tube 160 60 220 Dialysis 4 80 84 Shift Total(mL/kg) 514(6.5) 415(5.3) 929(11.8) NET 146 -121 -009 -640 Weight (kg) 78.6 78.6 78.6 78.6 78.6 [...] CAM negative for acute delirium. 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 ASSESSMENT / PLAN Mr. Castro is hospitalized on [place] [address] ([facility]) for evaluation and management of Empyema Pleural(HCC). He was brought to the ED after he was unable to stand to get out of his car due to acute onset of lower extremity weakness. Additional workup in the ED concerning for recurrent pleural effusions/empyema as below. He is admitted to [place] [address] for further evaluation. #1 Weakness, generalized Improved [...] plan of care detailed above. I provided bwwh-wq-mbnc counseling at bedside regarding the plan of care. The patient acknowledged an understanding and agreed with the plan of care listed above. I personally spent over half of a total 40 minutes in counseling and coordination of care as documented above. Simran Helm M.S., PA-C Pager: [phone] Jaqueline Fontanez M.D. - 12/04/2021 3:19 PM CDT Images from the original note were not included. Pleural Service/Interventional Pulmonology Service Consult Note SUBJECTIVE Referral Source: Jamal Andujar, POST SECONDARY PROFESSIONAL, C.N.P. Reason for Consult: Suspected empyema Interval [...] effusion. Images were saved and uploaded to [employer]. DIAGNOSTICS I have reviewed relevant laboratory, imaging, [...] pleural fluid when he was admitted to [facility] for heart failure (EF 25-30%). This pleural [...] was seen and discussed with the supervising workforce management consultant, Dr. Means. We will continue tofollow. Please contact [phone] with questions or concerns. Jaqueline Moseley M.D. [place] Fellow Yamileth Kennedy M.D., Ph.D. - 12/04/2021 [...] or concerns, please page the Nephrology A CRIMINAL JUSTICE DEPARTMENT CHAIR/PA pager, [phone] or you may text page by clicking here. Will Means M.D. - 12/04/2021 1:46 PM CDT Narrative summary: We visited with this patient for long time at the bedside. We reviewed his CT scan and his prior records including initial consult from Dr. Jimenez. I discussed the case with nephrology ocai-sy-dwxm. He is an 81M never smoker who is retired from [employer]. He has the prior history of lymphocytic [...] P.A.-C., M.S. - 12/04/2021 7:59 AM CDT [facility] Medicine 8 ([facility]) Progress Notes SUBJECTIVE The [facility] Medicine 8 ([facility]) service evaluated Mr. Castro this morning [...] 12/04/21 0612/04/21 07 - 12/05/21 0659 Shift 4030-6731 3214-5958 1555-3488 24 Hour Total 1610-5035 0876-9010 2278-3977 24 Hour Total INTAKE P.O. 240 400 [...] lower extremities bilaterally. Coordination intact w ith ntbtkj-an-hpxu testing, rapid alternating hand movements. Negative pronator drift. Mental: Mood and affect congruent. Alert and oriented. Attention intact. No evidence of disorganizedthinking. RASS 0. 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 DIAGNOSTICS I personally reviewed labs, imaging, EMR. ASSESSMENT / PLAN Mr. Castro is hospitalized on [place] [address] ([facility]) for evaluation and management of Empyema Pleural(HCC). He was brought to the ED after he was unable to stand to get out of his car due to acute onset of lower extremity weakness. Additional workup in the ED concerning for recurrent pleural effusions/empyema as below. He is admitted to [place] [address] for further evaluation. #1 Weakness, generalized He [...] plan of care detailed above. I provided xrvr-go-qzkm counseling at bedside regarding the plan of care. The patient acknowledged an understanding and agreed with the plan of care listed above. I personally spent over half of a total 40 minutes in counseling and coordination of care as documented above. Simran Helm M.S., PA-C Pager: [phone] Jaqueline Fontanez M.D. - 12/03/2021 1:21 PM [...] effusion. Images were saved and uploaded to [employer]. DIAGNOSTICS I have reviewed relevant laboratory, imaging, [...] pleural fluid when he was admitted to [facility] for heart failure (EF 25-30%). This pleural [...] was seen and discussed with the supervising workforce management consultant, Dr. Jimenez. We will continue to follow. Please contact [phone] with questions or concerns. Jaqueline Moseley M.D. [place] Fellow Associated attestation - Will Means M.D. [...] P.A.-C., M.S. - 12/03/2021 12:25 PM CDT [facility] Medicine 8 ([facility]) Progress Notes SUBJECTIVE The T Medicine 8 ([facility]) service evaluated Mr. Castro this morning [...] - 12/03/2159 12/03/21699 - 12/04/21 0659 Shift 0801-1198 0265-9506 8808-1674 24 Hour Total 5671-7324 5052-4228 7973-0805 24 Hour Total INTAKE P.O. 236 360 [...] CAM negative for acute delirium. 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 DIAGNOSTICS I personally reviewed labs, imaging, EMR. ASSESSMENT / PLAN Mr. Castro is hospitalized on [place] [address] ([facility]) for evaluation and management of Empyema Pleural(HCC). He was brought to the ED after he was unable to stand to get out of his car due to acute onset of lower extremity weakness. This is since resolved. Additional workup in the ED concerning for recurrent pleural effusions/empyema as below. He is admitted to [place] [address] for further evaluation. #1 Weakness, generalized--improving In [...] plan of care detailed above. I provided fkkn-pe-hmdr counseling at bedside regarding the plan of care. The patient acknowledged an understanding and agreed with the plan of care listed above. I personally spent over half of a total 40 minutes in counseling and coordination of care as documented above. Simran Helm M.S., PA-C Pager: [phone] Diana Reed RDN, LD - 12/03/2021 11:18 AM CDT Clinical Nutrition: Initial Assessment Clinical Nutrition was requested to evaluate patient for positive nursing baseline nutrition screen with a MST score of 2 or greater SUBJECTIVE Mr. Castro is a 81 y.o. male transferred from [facility] for evaluation of acute weakness. CT [...] achalasia which patient reported has been a retirement issue. He stated he usually eats throughout [...] 1900 calories/day Method to Estimate Energy Needs: Marc-Golden (Basal + 20%) Weight Used for Equation [...] about patient's nutritional care please contact pager [phone] on weekdays or [phone] on weekends/holidays. Kasia Narayanan Pharm.D., R.Ph. - [...] regimen intensified today Kasia Narayanan PharmD, BCPS [phone] Evette Pham APRN, C.N.P., D.N.P. - 12/03/2021 [...] lab and they are looking into the rrrj-hc-oqvjrkk on the pleural fluidglucose drawn > 24 [...] or concerns, please page the Nephrology A CRIMINAL JUSTICE DEPARTMENT CHAIR/PA pager, [phone] or you may text page by clicking [...] 2021 1:23 PM CDT T Medicine 8 ([facility]) Progress Notes SUBJECTIVE The T Medicine 8 ([facility]) service evaluated Mr. Castro this morning [...] Admitted) 12/02/21 0700 - 12/03/21 0659 Shift 6957-8102 9865-6077 5991-2121 24 Hour Total 8072-0112 9228-5328 2103-6539 24 Hour Total INTAKE Shift Total(mL/kg) OUTPUT [...] CAM negative for acute delirium. 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 DIAGNOSTICS I personally reviewed labs, imaging, EMR. ASSESSMENT / PLAN Mr. Castro is hospitalized on [place] [address] ([facility]) for evaluation and management of Empyema Pleural(HCC). He was brought to the ED after he was unable to stand to get out of his car due to acute onset of lower extremity weakness. This is since resolved. Additional workup in the ED concerning for recurrent pleural effusions/empyema as below. He is admitted to [place] [address] for further evaluation. #1 Weakness, generalized--improving He [...] plan of care detailed above. I provided rlvy-lf-gvit counseling at bedside regarding the plan of care. The patient acknowledged an understanding and agreed with the plan of care listed above. I personally spent over half of a total 40 minutes in counseling and coordination of care as documented above. Simran Helm M.S., PA-C Pager: [phone] Kasia Ridley Pharm.D., R.Ph. - 2021 9:48 [...] progress daily until discharge from the hospital. Ksaia Ridley Pharm.D., R.Ph. [phone] documented in this encounter H&P Notes Jamal Andujar APRN, C.N.P. - 2021 1:00 AM CDT [facility] Medicine 8 ([facility]) Admission Note SUBJECTIVE CHIEF COMPLAINT Weakness [...] He sat in the recliner andwatched [employer] [place] [employer] and after noted he was still very weak, thus took him to [facility]. At [place], we do not have much info, as they are not in care everywhere; he reports he had labs and a CT, was told he had fluid around his lungs, thus he was given Zosyn and Clindamycin, reports around 2000 and 2200 roughly. Reports [place] was working on trying to send him out; and eventually he was transitioned to [facility] here and directly admitted. In meeting [...] in hospital. He has no other complaints. [facility] gave him all his evening med's. [...] I have independently reviewed the CT/CXR from [place], showing Empyema with air, in Qreads. ASSESSMENT [...] and 2200. -Ordered CT/CXR for interpretation by [place]/here. -Ordered CMP, Mg, Phos, CBCdiff, lactate, procalcitonin, [...] and walk) Disposition: Home Counseling was provided xqup-gs-ekew at bedside regarding the plan of care [...] fellow participated in the procedure, and the workforce management consultant was present for the entire procedure. [...] right posterior Intercostal space: 9th Puncture method: odrz-nal-jwenee catheter Number of attempts: 1 Drainage characteristics: [...] fellow participated in the procedure, and the workforce management consultant was present for the entire procedure. Associated attestation - Cj Jimenez M.D. - 2021 2:42 PM CDT I was present for the entirety of the procedure(s). documented in this encounter Consult Notes Aleida Flores M.D. - 12/03/2021 3:26 PM CDT INPATIENT SUPERVISORY CONSULT NOTE Date of Consultation: 12/03/2021 Requesting Service: [facility] Medicine 8 ([facility]) This is a supervisory note for [...] Heller myotomy locally with Dr. Awan at [facility]. The think that this was at least [...] of? Esophageal perforation Briefly, he is from [place] Lives at home Functionally very active [...] Please page the GI consult pager at [phone] with any questions or concerns. Ani Tariq P.T., D.P.T. - 12/03/2021 12:51 PM CDT Physical Therapy Inpatient Evaluation/Treatment SUBJECTIVE Patient's Name: David Castro Referring/Attending Provider: John Paul Dockery M.D. Medical Diagnosis: Empyema Pleural (HCC) [J86.9] Reason for Referral: PT eval and treat- acute Onset Date: 12/02/21 [facility] Plan: [facility] MEDICARE COMPLETE / Product Type: PPO / [...] the gym Prior Mobility/Functional Transfers Level of [place]: Independent Home Living Type of Home: House [...] therapy session: during hallway mobility Outcome Measures -[facility] Inpatient Short Form: -[facility] Basic Mobility (V.2) How much help [...] 3-5 steps with a railing?: A Little -[facility] Basic Mobility (V.2) Raw Score: 22 -[facility] Basic Mobility (V.2) Standardized Score: 47.4 Interpretation: Clinicians answer the -[facility] Inpatient Short Form based on observed [...] admitted today with complaints of weakness for qbsoaanorg97 hours. He has a pertinent past medical [...] proceeded with placement of a right 12 [place] locking loop thoracostomy tube. Post placement chest [...] 14 Ht 167.6 cm Wt 79.3 kg [id number]% BMI 28.22 kg/m?? General: pleasant, lying in bed with family at the side Pulmonary: no audible breathing, no increased work of breathing Bedside ultrasound demonstrated a moderate right pleural effusion with septations and no left pleural effusion. Images were saved and uploaded to [employer]. Bedside ultrasound demonstrating placement of guidewire for pigtail DIAGNOSTICS I have reviewed relevant laboratory, imaging, and other diagnostics as applicable to this consultation. 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 Jimenez. We will continue to follow. Please contact [phone] with questions or concerns. Jaqueline Moseley M.D. [place] Fellow [employer] Waldrop O.T., O.T.Candida - 2021 1:50 PM CDT Occupational Therapy Dysphagia Evaluation/Treatment SUBJECTIVE Patient's Name: David Castro Referring/Attending Provider: John Paul Dockery M.D. 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 Csatro participated in a clinical bedside dysphagia evaluation [...] was reviewed with Dr. Kennedy, Nephrology A workforce management consultant For questions or concerns, please page the Nephrology A CRIMINAL JUSTICE DEPARTMENT CHAIR/PA pager ([phone]). Associated attestation - Yamileth Kennedy M.D., Ph.D. [...] Xray completed post removal. Plan to discharge [facility] tomorrow. Problem: ALTERED NUTRIENT INTAKE - ADULT Goal: Nutrient intake appropriate for improving, restoring or maintaining nutritional needs Outcome: Progressing Note: Scientific Process Operator able to meet with patient and at [...] Pigtail chest tube placed and set to -[id number] continuous suction. IV Zosyn administered. Plan for [...] 81 y.o. male who presented to the [facility] ED with a chief complaint [...] both lower legs. He initially presented to [facility] ED, then transitioned to [facility] for further care. Identified on CTperformed at [place] to have a complex hydropneumothorax with scattered [...] Gastroenterology and Hepatology Lyric Coe M.D. [address] [place] [address] [phone] (Wo rk) 09/01/2022 Appointment Gastroenterology and Hepatology Maurice Herrera M.D., Ph.D. [address] [place] [address] [phone] (Wo rk) 09/02/2022 Appointment Gastroenterology and Hepatology Maurice Herrera M.D., Ph.D. [address] [place] [address] [phone] (Wo rk) documented as of this encounter [...] all are in the outpatients) results section. MO PLEURA DRAIN PERC Routine 2021 6:25 Empyema Pleural R esults for W IMG GUID PM CDT (HCC) this procedure Effusion Pleural are in the Hydropneumothora results x section. CONTINUOUS CYCLING Routine 2021 1:17 PERITONEAL DIALYSIS PM CDT (CCPD) AMYLASE, BF Routine 2021 10:04 Results for AM CDT this procedure are in the results section. MO THORACENTESIS Routine 2021 9:47 Effusion Pleural Resu lts for PLEURA W IMG AM CDT this procedure are in the results section. BROAD RANGE BACTERIA Timed 2021 9:36 Resu lts for PCR AND SEQUENCING AM CDT this proc edure are in the results section. CYTOLOGY NON-JR. JAVA DEVELOPER Timed 2021 9:36 Results for AM CDT [...] 12/08/2021 DTL Black/ mL/min/BSA 10:28 AM CDT Scottish Comment: ----ADDITIONAL INFORMATION---- Estimated [...] Organization Address City/State/ZIP Code Phon e Number [facility] - [address] [place] [address] [facility] [place] [address] [facility] 200 [facility] (ABNORMAL) CBC without Differential (12/08/2021 9:26 AM CDT) [facility] gist Method Time Signature Hemoglobin 9.9 (L) 13.2 [...] Laterality Blood (Blood, 12/08/2021 9:26 AM 12/09/19 22 9:46 Venous) CDT AM CDT Maria G Adame P.A.-C., M.S. LAB BLOOD ADD-ON Performing Organization Address [facility] Phon e Number [facility] - [address] [place] [address] Laboratories-[address] (ABNORMAL) Prothrombin Time (PT) (12/08/2021 9:26 AM CDT) Patholo gist Method Time Signature Prothrombin 16.5 (H) [...] Laterality Blood (Blood, 12/08/2021 9:26 AM 12/09/19 22 9:46 Venous) CDT AM CDT Simran Helm P.A.-C., M.S. LAB BLOOD ADD-ON Performing Organization Address City/[facility] Phon e Number [address] [address] [facility]-[address] (ABNORMAL) Basic Metabolic Panel (12/07/2021 12:42 [...] 12/07/2021 DTL Black/ mL/min/BSA 1:56 PM CDT [place] Comment: ----ADDITIONAL INFORMATION---- Estimated [...] Organization Address City/State/ZIP Code Phon e Number [facility] - [address] [place], [place] [address] [facility] [place] [address] [facility] [address] (ABNORMAL) Parathyroid Hormone (PTH) (12/07/2021 12:38 PM CDT) Analysis Performed At Patho logist Time Signature Parathyroid 100 (H) 15 - 65 12/08/2021 DTL Hormone (PTH), S pg/mL 9:07 AM CDT Specimen Anatomical Collection Method Collection Time Receive d Time (Source) Location / / Volume Laterality Blood (Blood, 12/07/2021 12:38 12/08/2021 8:14 Venous) PM CDT AM CDT Shanon Turner APRN [email or web address]. LAB BLOOD ADD-ON Performing Organization Address [facility] Phon e Number [facility] - [address] (ABNORMAL) Hepatic Function Panel (12/07/2021 12:38 PM CDT) [facility] gist Method Time Signature Bilirubin, Total, S [...] M.S. LAB BLOOD ADD-ON Performing Organization Address City/[facility] Code Phon e Number [facility] - [address] DX Chest 1 View (12/07/2021 10:19 [...] aorta. Jaqueline Moseley M.D. IMMike DIAGNOSTIC IMAGING MO OCEDURES (ABNORMAL) Prothrombin Time (PT) (12/07/2021 8:06 AM CDT) [facility] Method Time Signature Prothrombin 16.8 (H) [...] Organization Address City/State/ZIP Code Phon e Number [facility] - [address] [place], [place] [address] [facility] [place] [address] [facility] [address] [place] Esophagram Single Contrast (12/06/2021 2:03 PM [...] SINGLE CONTRAST COMPARISON: ??Esophagram 09/17/2018. FINDINGS: ??Preprocedural websphere administrator image de monstrates partially visualized right pleural [...] SINGLE CONTRAST COMPARISON: Esophagram 09/17/2018. FINDINGS: Preprocedural websphere administrator image demo nstrates partially visualized right pleural [...] 12/06/2021 DTL Black/ mL/min/BSA 5:40 AM CDT [place] Comment: ----ADDITIONAL INFORMATION---- Estimated [...] M.S. LAB BLOOD ADD-ON Performing Organization Address City/[facility] Phon e Number [facility] - 200 [place], [place] [address] [place] [address] [facility] 200 [facility] (ABNORMAL) Prothrombin Time (PT) (12/06/2021 4:17 AM CDT) [facility] Method Time Signature Prothrombin 22.9 (H) 9.4 - 12.5 12/06/2021 DT Time, P sec 5:01 AM CDT INR [...] M.S. LAB BLOOD ADD-ON Performing Organization Address City/[facility] Code Phon e Number [facility] - [address] [place], [place] [address] [place] [address] Laboratories-[address] Broad [place] Bacteria PCR+Sequencing (12/05/2021 10:03 AM CDT) Component Value Ref Test Analysis Performed At [facility] Method Time Signature Broad [place] No bacterial DNA detected. 12/07/2021 DT Bacteria This test was developed and its performance characteri stics 2:17 PM CDT PCR+Sequencin determined by [facility] in a manner consistent with g [...] Organization Address City/State/ZIP Code Phon e Number [facility] - [address] [place], [place] [address] [facility] [place] [address] [facility] [address] (ABNORMAL) Renal Function Panel (12/05/2021 8:34 [...] 12/05/2021 DTL Black/ mL/min/BSA 9:25 AM CDT [place] Comment: ----ADDITIONAL INFORMATION---- Estimated [...] - 4.5 mg/dL 12/06/19 9:25 AM CDT DT Specimen Anatomical Collection Method Collection Time Receive d Time (Source) Location / / Volume Laterality Blood (Blood, 12/05/2021 8:34 AM 12/06/19 9:09 Venous) CDT AM CDT Simran Helm P.A.-C., M.S. LAB BLOOD ADD-ON Performing Organization Address City/[facility] Phon e Number [facility] - [address] [place], [place] [address] [place] [address] [facility] [address] [facility] Connective Tissue Diseases [place] (12/05/2021 8:34 AM CDT) athologist Signature Antinuclear Ab, 0.4 <=1.0 12/06/2021 [facility] S (Negative) 1:12 PM CDT U Comment: ----ADDITIONAL INFORMATION---- Method: Enzyme-linked immunoassay using HEp-2 nuclear extract supplemented with purified antig ens. Cyclic Citrullinated <15.6 <20.0 (Negative) U 12/06/2021 10:49 AM [facility] Peptide Ab, S CDT Interpretation SEE COMMENT 12/06/2021 1:12 PM [facility] CDT Comment: Tests for antibodies to dsDNA and SHREYAS an tigens are not performed automatically unless the TANVIR r esult is > or = 3.0 U. ??Studies performed at [facility] indicate that positive TANVIR results <3.0 U are rarely a ccompanied by positive second order tests. Specimen Anatomical Collection Method Collection Time Receive d Time (Source) Location / / Volume Laterality Blood (Blood, 12/05/2021 8:34 AM 12/07/19 7:51 Venous) CDT AM CDT Simran Helm P.A.-C., M.S. LAB BLOOD ADD-ON Performing Organization Address City/[facility] Code Phon e Number [facility] [address] [place], [place] [address] SUPPORT CENTER [facility] [place] [address] Laboratory Medicine and Pathology [address] [place] (ABNORMAL) Prothrombin Time (PT) (12/05/2021 8:34 AM CDT) [facility] Method Time Signature Prothrombin 29.4 (H) [...] Organization Address City/State/ZIP Code Phon e Number [facility] - [address] [place] [address] [facility] [place] [address] [facility] [address] DX Chest AP or [...] Blood (Blood, 12/04/2021 7:19 AM 12/05/19 22 8:12 Venous) CDT AM CDT Simran Helm P.A.-C., M.S. LAB BLOOD ADD-ON Performing Organization Address City/State/ZIP Code Phon e Number [facility] - [address] [place], [place] [address] [facility] [place] [address] [facility] [address] (ABNORMAL) Renal Function Panel [...] 12/04/2021 DTL Black/ mL/min/BSA 8:38 AM CDT [place] Comment: ----ADDITIONAL INFORMATION---- Estimated [...] Blood (Blood, 12/04/2021 7:19 AM 12/05/19 22 8:12 Venous) CDT AM CDT Simran Helm P.A.-C., M.S. LAB BLOOD ADD-ON Performing Organization Address City/[facility] Phon e Number [facility] - 200 [place], [place] [address] [place] [address] Laboratories-[address] (ABNORMAL) Prothrombin Time (PT) (12/04/2021 7:19 AM CDT) [facility] Method Time Signature Prothrombin 35.4 (H) [...] M.S. LAB BLOOD ADD-ON Performing Organization Address City/[facility] Phon e Number [address] [place] [address] Laboratories-[address] Chest with IV Contrast (12/03/2021 [...] CBC without Differential (12/03/2021 9:26 AM CDT) [facility] Spreadsave Method Time Signature Hemoglobin 10.9 (L) 13.2 [...] Organization Address City/State/ZIP Code Phon e Number [facility] - [address] [place], [place] [address] [facility] [place] [address] [facility] [address] (ABNORMAL) Electrophoresis, Protein (12/03/2021 8:21 AM CDT) [facility] [employer]save Method Time Signature Total Protein, 5.8 (L) [...] Organization Address City/State/ZIP Code Phon e Number [facility] [address] [place], [place] [address] SUPPORT CENTER [facility] [place] [address] Laboratory Medicine and Pathology [address] [...] 12/03/2021 DTL Black/ mL/min/BSA 9:32 AM CDT [place] Comment: ----ADDITIONAL INFORMATION---- Estimated [...] Organization Address City/State/ZIP Code Phon e Number [facility] - [address] [place] [address] [facility] [place] [address] [facility] 200 [facility] (ABNORMAL) CBC with Differential, Blood (12/03/2021 8:21 AM CDT) [facility] Method Time Signature Hemoglobin 10.2 (L) [...] AM 12/04/19 8:53 Venous) CDT AM CDT iSmran Helm P.A.-C., M.S. LAB BLOOD ADD-ON Performing Organization Address City/State/ZIP Code Phon e Number [facility] - [address] [place], [place] [address] [facility] [place] [place] [address] [facility] [address] [facility] (ABNORMAL) Prothrombin Time (PT) (12/03/2021 8:21 AM CDT) [facility] Method Time Signature Prothrombin 40.5 (H) 9.4 [...] Organization Address City/State/ZIP Code Phon e Number [facility] - 200 [place], [place] [address] [facility] [place] [address] [facility] [address] DX Chest Portable 1 View (12/03/2021 [...] calcification. Jaqueline Moseley M.D. IMG DIAGNOSTIC IMAGING MO OCEDURES DX Chest Portable 1 View (2021 [...] view. Jaqueline Moseley M.D. IMG DIAGNOSTIC IMAGING MO OCEDURES MO PLEURA DRAIN PERC W IMG GUID (2021 [...] fellow participated in the procedure, and the workforce management consultant was present for the entire procedure. [...] atio <1.0. All other fluids refer to www.[employer].com for further inter pretive information. This test has been modified from the man ufacturer's instructions. Its performance characteri stics were determined by [facility] in a manner consistent wi CLIA [...] Organization Address City/State/ZIP Code Phon e Number [facility] - 200 [place], [place] [address] [facility] [place] [address] [facility] [address] MO THORACENTESIS PLEURA W IMG (2021 9:47 AM CDT) Narrative Cj Jimenez M.D. - 2021 9:47 A M CDT Jaqueline Fontanez M.D. ? 2021 ??9:49 AM Thoracentesis Date/Time: 2021 9:47 AM Performed by: Jaqueline Fontanez M.D. Authorized by: Jaqueline Fontanez M.D. Care team members present 1. Cj Jimenez M.D. PROCEDURE DETAILS Patient position: sitting Location: right posterior Intercostal space: 9th Puncture method: [id number] cathete r Number of attempts: 1 Drainage [...] fellow participated in the procedure, and the workforce management consultant was present for the entire procedure. Jaqueline Moseley M.D. PROCEDURE/MINOR SURGICAL ORDERABLES Broad Range Bacteria PCR+Sequencing (2021 9:36 AM CDT) Component Value Ref Test Analysis Performed At Patholo gist Range Method Time Signature Broad Range No bacterial DNA detected. 12/07/2021 DTL Bacteria This test was developed and its performance characteri stics 2:15 PM CDT PCR+Sequencin determined by [facility] in a manner consistent with g CLIA requirements. This test has not been cleared or approved by the U.S. Food and Drug Administration. Specimen Anatomical Collection Method Collection Time Receive d Time (Source) Location / / Volume Laterality Pleural Fluid, 2021 9:36 AM 022 Right CDT 11:28 AM CDT Comment: Specimen Source Site: Fluid Narrative [facility] - [facility] - 12/07/2021 2:15 PM CDT Bacterial Culture: Received Bactec aerob ic and Bactec anaerobic bottles Cj Jimenez M.D. LAB MICROBIOLOGY - GENERAL O RDERAMARY Performing Organization Address City/State/ZIP Code Phon e Number [facility] - [address] [place], [place] [address] [facility] [place] [place] [address] [facility] [address] Glucose, Body Fluid (2021 [...] of infection. All other fluids refer to [email or web address].com for further inter pretive information. This test has been modified from the man ufacturer's instructions. Its performance characteri stics were determined by [facility] in a manner co nsistent with CLIA requirements. This test has not been willian ared or approved by the U.S. Food and Drug Administration. Fluid Type, Glucose Fluid, Pleural Fluid, Right 11:09 AM CDT DT Specimen Anatomical Collection Method Collection Time Receive d Time (Source) Location / / Volume Laterality Fluid (Pleural 2021 9:36 AM 022 Fluid, Right) CDT 12:24 PM CDT Cj Jimenez M.D. LAB BODY FLUIDS AND STOOLS [place] IBRAHIM Performing Organization Address [facility] Phon e Number [facility] - [address] pH, Pleural Fluid (2021 9:36 AM CDT) [facility] gist Method Time Signature pH, Pleural 7.27 Not Applicable 2021 [facility] Fl[facility] pH 9:59 AM CDT Comment: [...] AND STOOLS O [place] Performing Organization Address City/[facility]/ZIP Code Phon e Number [facility] - [address] [place] [address] [facility] [address] Fungal Culture, Routine (2021 9:36 AM CDT) [facility] Method Time Signature Fungal No growth 12/26/2021 DTL Culture, after 24 1:01 PM CDT Routine days of incubation. Specimen Anatomical Collection Method Collection Time Receive d Time (Source) Location / / Volume Laterality Fluid (Pleural 2021 9:36 AM 022 Fluid, Right) CDT 11:28 AM CDT Comment: Specimen Source Site: Fluid Narrative [facility] - 12/26/2021 1:01 PM CDT Bacterial Culture: Received Bactec aerob ic and Bactec anaerobic bottles Cj Jimenez M.D. LAB MICROBIOLOGY - GENERAL O [place] Performing Organization Address City/State/ZIP Code Phon e Number [facility] [address] [address] [facility] [address] [facility] Fungal Smear (2021 9:36 AM CDT) athologist Signature Fungal Smear Negative. 2021 DTL 1:56 PM CDT Specimen Anatomical Collection Method Collection Time Receive d Time (Source) Location / / Volume Laterality Fluid (Pleural 2021 9:36 AM 022 Fluid, Right) CDT 11:28 AM CDT Comment: Specimen Source Site: Fluid Narrative [facility] - 2021 1:56 PM CDT Bacterial Culture: Received Bactec aerob ic and Bactec anaerobic bottles Cj Jimenez M.D. LAB MICROBIOLOGY - GENERAL O [place] Performing Organization Address City/State/ZIP Code Phon e Number [facility] - [address] [place], [place] [address] [place], [place] [id number] [place] [address] [address] [facility] Cytology Non-JR. JAVA DEVELOPER (2021 9:36 AM CDT) Component Value Ref Test Analysis Performed At [facility] gist Range Method Time Signature 12/03/2021 DTL [...] Organization Address City/State/ZIP Code Phon e Number [facility] - [address] [place] [address] [facility] [place] [address] [facility] 200 [facility] Cell Count and Differential, Body Fluid (2021 9:36 AM CDT) [facility] Method Time Signature Fluid Type Right [...] characteri stics were determined by [facility] in a manner co nsistent with CLIA requirements. This test has not bee n cleared or approved by the U.S. Food and Drug Admin istration. Neutrophils 2 % 2021 12:45 PM CDT PM Comment: ----REFERENCE VALUE---- Synovial: <25% Peritoneal: <25% Pleural: <25% Pericardial: <25% Lymphocytes 78 Synovial <75% % 2021 12:45 PM CD T [facility] Monocytes/Macrophages 20 Synovial <70% % 2021 1 2:45 PM CDT [facility] Comment SeeComment 2021 12:45 PM CDT [facility] Comment: Cytology concurrently ordered; see separate report. Reviewed by: Tech 2021 12:45 PM CDT [facility] Specimen Anatomical Collection Method Collection Time Receive d Time (Source) Location / / Volume Laterality Fluid (Pleural 2021 9:36 AM 022 Fluid, Right) CDT 11:25 AM CDT Cj Jimenez M.D. LAB BODY FLUIDS AND STOOLS [place] Performing Organization Address City/[facility] Phon e Number [facility] - [address] [place], [place] [address] [place] [address] Bacterial Culture, Aerobic + Susc (2021 9:36 AM CDT) [facility] Method Time Signature Bacterial No growth 12/07/2021 DTL Culture, after 5 8:50 AM CDT Aerobic + Susc days of incubation. Specimen Anatomical Collection Method Collection Time Receive d Time (Source) Location / / Volume Laterality Fluid (Pleural 2021 9:36 AM 022 Fluid, Right) CDT 11:28 AM CDT Comment: Specimen Source Site: Fluid Narrative [facility] - [facility] - 12/07/2021 8:50 AM CDT Bacterial Culture: Received Bactec aerob ic and Bactec anaerobic bottles Cj Jimenez M.D. LAB MICROBIOLOGY - GENERAL O [place] Performing Organization Address City/[facility] Phon e Number [facility] - [address] [place], [place] [address] [place] [address] Gram Stain (2021 9:36 AM CDT) [facility] Method Time Signature Gram Stain No organisms seen. 2021 DTL White blood cells present. 12:20 PM CDT Specimen Anatomical Collection Method Collection Time Receive d Time (Source) Location / / Volume Laterality Fluid (Pleural 2021 9:36 AM 022 Fluid, Right) CDT 11:28 AM CDT Comment: Specimen Source Site: Fluid Narrative [facility] - [facility] - 2021 12:20 PM CDT Bacterial Culture: Received Bactec aerob ic and Bactec anaerobic bottles Cj Jimenez M.D. LAB MICROBIOLOGY - GENERAL O RDERABLES Performing Organization Address City/State/ZIP Code Phon e Number [facility] - [address] [place], [place] [address] [facility] [place] [place] [address] [facility] [address] Protein, Total, Body Fluid [...] ical findings. All other fluids refer to [email or web address] for further inter pretive information. This test has been modified from the inspection and testing supervisor's instructions. Its perform ance characteristics were determined by [facility] in a manner consistent with CLIA [...] AND STOOLS O RDERABLES Performing Organization Address [facility] Phon e Number [facility] - [address] Lactate Dehydrogenase (LD), Body Fluid (2021 9:36 AM CDT) [facility] gist Method Time Signature Lactate 343 See [...] clinical findings. All other fluids refer to www.[facility].com for further interpretive information. This test has been modified from the man ufacturer's instructions. Its performance characteristics were det ermined by [facility] in a manner consistent with CLIA [...] AND STOOLS O RDERABLES Performing Organization Address City/[facility] Phon e Number [facility] - [address] [address] [place] [address] Interpretation of Outside DX Chest (2021 [...] phageal hiatal hernia. Jamal Andujar APRN, C.N.P. [facility] DIAGNOSTIC IMAGING PROC EDURES Interpretation of Outside [...] Prothrombin Time (PT) (2021 1:01 AM CDT) [facility] Method Time Signature Prothrombin 33.3 (H) 9.4 [...] Laterality Blood (Blood, 2021 1:01 AM 12/03/19 22 1:09 Venous) CDT AM CDT Jamal Andujar APRN, Pablo.N.P. LAB BLOOD ADD-ON Performing Organization Address City/[facility]/ZIP Code Phon e Number [facility] - [address] [place], [place] [address] [facility] [place] [address] [facility] 200 [facility] (ABNORMAL) Procalcitonin (2021 1:01 AM CDT) P athologist Signature Procalcitonin, 0.18 (H) <=0.08 2021 DTL S ng/mL 2:04 AM CDT Specimen Anatomical Collection Method Collection Time Receive d Time (Source) Location / / Volume Laterality Blood (Blood, 2021 1:01 AM 12/03/19 1:35 Venous) CDT AM CDT Jamal Andujar APRN, Pablo.N.P. LAB BLOOD ADD-ON Performing Organization Address City/[facility]/ZIP Code Phon e Number [facility] - [address] [place], [place] [address] 05 [place] [address] Lactate (2021 1:01 AM CDT) P athologist Signature Lactate, P 1.1 0.5 - 2.2 2021 DTL mmol/L 1:48 AM CDT Specimen Anatomical Collection Method Collection Time Receive d Time (Source) Location / / Volume Laterality Blood (Blood, 2021 1:01 AM 12/03/19 1:35 Venous) CDT AM CDT Jamal Andujar APRN, C.N.P. LAB BLOOD NON ADD-ON Performing Organization Address City/[facility]/ZIP Code Phon e Number [facility] - [address] [address] [facility] [place], [place] [address] [place] [address] Phosphorus Inorganic (2021 1:01 AM CDT) P athologist Signature Phosphorus 3.8 2.5 - 4.5 2021 DTL (Inorganic), S mg/dL 2:04 AM CDT Specimen Anatomical Collection Method Collection Time Receive d Time (Source) Location / / Volume Laterality Blood (Blood, 2021 1:01 AM 12/03/19 1:35 Venous) CDT AM CDT Pablo Strong APRN.N.P. LAB BLOOD ADD-ON Performing Organization Address [facility] Phon e Number [facility] - [address] [address] [facility] [id number] Magnesium (2021 1:01 AM CDT) P athologist Signature Magnesium, S 1.8 1.7 - 2.3 2021 DTL mg/dL 2:04 AM CDT Specimen Anatomical Collection Method Collection Time Receive d Time (Source) Location / / Volume Laterality Blood (Blood, 2021 1:01 AM 12/03/19 1:35 Venous) CDT AM CDT Jamal Andujar APRN, Pablo.N.P. LAB BLOOD ADD-ON Performing Organization Address City/[facility] Phon e Number [facility] - [address] [place] [address] (ABNORMAL) Comprehensive Metabolic Panel (2021 1:01 AM [...] 2021 DTL Black/ mL/min/BSA 1:58 AM CDT [place] Comment: ----ADDITIONAL INFORMATION---- Estimated [...] Organization Address City/State/ZIP Code Phon e Number [facility] - [address] [place], [place] [address] [facility] [place] [address] Laboratories-[facility] [address] (ABNORMAL) CBC with Differential, Blood (2021 1:01 AM CDT) [facility] Method Time Signature Hemoglobin 10.1 (L) 13.2 [...] Organization Address City/State/ZIP Code Phon e Number [facility] - 200 [place], [place] [address] [facility] [place] [address] [address] (ABNORMAL) GGT (Gamma-Glutamyltransferase) (2021 12:57 AM CDT) Component Value Ref Test Analysis Performed At [facility] Range Method Time Signature Gamma 169 (H) 8 - 61 2021 DTL Glutamyltransferase U/L 2:20 PM CDT (GGT), S Specimen Anatomical Collection Method Collection Time Receive d Time (Source) Location / / Volume Laterality Blood (Blood, 2021 12:57 2021 1:48 Venous) AM CDT PM CDT Simran Helm P.A.-C., M.S. LAB BLOOD ADD-ON Performing Organization Address City/State/ZIP Code Phon e Number [address] [place] [address] [place] [address] documented in this encounter Visit Diagnoses [...] dose on Alyssa 12/02/21 at 0900 Given 12/07/2021 8:02 AM CDT [...] 2,000 mL dialysis solution intraperitoneal, Once, On Alyssa 12/02/21 at 1800, For 1 dose, Scheduling/ADT, Refer [...] Lewis R.N.)2130 (Given - Provider: Yohan Edgar RNicholas) 0.25 mcg, oral, User Specified (3 times per day on Mon), First dose on Mon12/03/21 at 0800, Daily on // only. calcitRIOL capsule 0.25 mcg (ROCALTROL) 0813 (Given - Provider: Anita Hill RNicholas) 0.25 mcg, oral, 3 times weekly (Once [...] (CANCELED) 0642 (Given - Provider: Paty Pina MNelly, R.N., C.M.S.R.N.)1122 (Given - Provider: Yadi Lewis R.N.)1603 (Given - Provider: Yadi Lewis R.N.) 0652 (Given - Provider: Yohan Edgar RNicholas)1132 (Given - Provider: Yadi Lewis R.N.) 5 [...] (LOPRESSOR) 214 (Given - Provider: Yohan Edgar RNicholas) 0813 (Given - Provider: Suzy EspinalNBailey) 25 [...] (PROTONIX) 0642 (Given - Provider: Paty Pina M.Paola., R.N., C.M.S.R.N.) 0652 (Given - Provider: Yohan lemons R.NBailey) 0633 (Given - Provider: Yohan lemons RBaileyNBailey) 40 mg, oral, Daily before breakfast, Fir st dose on Mon12/02/21 at 0700, pantoprazole 40 mg oral daily was interchanged for omeprazole 20 or 40 mg oral daily Swallow whole. Do NOT crush, chew, or split tablet. PD 1.5 % dextrose Low Ca 2.5 mEq/L- Mg 0 .5 mEq/L 2,000 mL dialysis solution (COMPLETED) 1932 (Given - Provider: Elmo Marie RBaileyNBailey) intraperitoneal, Once, On Mon12/06/21 at 1800, For [...] 0758 (New Bag - Provider: Yadi Lewis RNicholas)1603 (New Bag - Provider: Yadi Lewis R.N.) 0018 (New Bag - Provider: Yohan bui R.N.)0758 (New Bag - Provider: Yadi Lewis R.N.)1625 (New Bag - Provider: Yadi Lewis R.N.)2310 (New Bag - Provider: Yohan Edgar RBaileyNBailey) 2.25 g, intravenous, at 100 mL/hr, Admin [...] (Held by provider - Provider: Andra Benson, P.A.-CBailey - Reason: Other - Comment: Per Neph)0900 (Dose Auto Held - Provider: Marlyn Benson, P.A.-C.) 0900 (Not Given - Provider: Anita [...] mg of calcium, oral, Every 2 hour MO N, heartburn, indigestion, Starting on Alyssa 12/02/21 at 0059, Doses listed are in mg of elemental calcium. Take with food. 500 mg calcium carbonate contains 200 mg of elemental calcium. iohexoL 300 mg iodine/mL solution (OMNIPAQUE) (COMPLET ED) 1402 (Given - Provider: Glenn Spencer M.D.) Code/trauma/sedation medication, Starting on 12/06/21 at 1402 documented in this encounter
--- OUTSIDE RECORDS SUMMARY | 2022-07-22 11:02 | XMS_ITS | Encounter Summary ---
:1940 Author Organization [facility] Address [address] [place] [address] Care Team Providers Name Role Phone Unavailable [...] How often do you attend taoism or islam More than 4 time s [...] and Hepatology Lyric Coe M.D. [address] [place] [address] [phone] (Wo rk) 09/01/2022 Appointment Gastroenterology and Hepatology Maurice Herrera M.D., Ph.D. [address] [place] [address] [phone] (Wo rk) 09/02/2022 Appointment Gastroenterology and Hepatology Maurice Herrera M.D., Ph.D. [address] [place] [address] [phone] (Wo rk) documented as of this encounter [...]
--- OUTSIDE RECORDS SUMMARY | 2022-07-22 11:02 | XMS_ITS | Encounter Summary ---
:1940 Author Organization [facility] Address [address] [place] [address] Care Team Providers Name Role Phone Unavailable Primary Care Provider Unavailable Encounter Details Date Type Department Care Team Description 2021 Ancillary Procedure Department of Radiology Gavin Andujar, in [facility] DWIGHT, C.N.P. [address] [facility] [address] [place] [address] [place] [phone] Social History Tobacco Use Types Packs/Day Years [...] or relatives? How often do you attend anabaptist or episcopal More than 4 time s per year 04/11/2022 services? Do you belong to any clubs or organizations Yes 04/11/2022 such as anabaptist groups, unions, fraternal or athletic groups, or [...] and Hepatology Lyric Coe M.D. [address] [place] [address] [phone] (Wo rk) 09/01/2022 Appointment Gastroenterology and Hepatology Maurice Herrera M.D., Ph.D. [address] [place] [address] [phone] (Wo rk) 09/02/2022 Appointment Gastroenterology and Hepatology Maurice Herrera M.D., Ph.D. [address] [place] [address] [phone] (Wo rk) documented as of this encounter [...] phageal hiatal hernia. Jamal Andujar APRN C.N.P. [facility] DIAGNOSTIC IMAGING PROC EDURES documented in this encounter Visit Diagnoses Not on filedocumented in this encounter
--- OUTSIDE RECORDS SUMMARY | 2022-07-22 11:02 | XMS_ITS | Encounter Summary ---
:1940 Author Organization [facility] Address [address] [place] [address] Care Team Providers Name Role Phone Unavailable Primary Care Provider Unavailable Reason for Referral Outpatient (Routine) - Closed Specialty Diagnoses / Procedures Referred By Contact Refer red To Contact Pulmonary Medicine Diagnoses Empyema Pleural (HCC) [facility] Estela, M.[facility] [address] [place] [phone] Referral ID Status Reason Start Date Expiration Date Visits Requ ested Visits Authorized [id number] Closed 12/07/2021 12/07/2022 1 1 Encounter Details Date Type Department Care Team Description 12/07/2021 Clinical Communication RST HIM Maria G Adame, [address] [place] [address] Estela, M.S. [place], [place] [address] [place] [phone] [place] [address] Social History Tobacco Use Types Packs/Day Years [...] often do you attend oriental orthodox or muslim More than 4 time s per year 04/11/2022 services? Do you belong to any clubs or organizations Yes 04/11/2022 such as oriental orthodox groups, unions, fraK[employer] or athletic groups, or school groups? How [...] Gastroenterology and Hepatology Lyric Coe M.D. 200 [place] [phone] (Gary hicks) 09/01/2022 Appointment Gastroenterology and Hepatology Maurice Herrera M.D., Ph.D. [address] [place] [address] [phone] (Gary hicks) 09/02/2022 Appointment Gastroenterology and Hepatology Maurice Herrera M.D., Ph.D. [address] [place] [address] [phone] (Gary hicks) Scheduled Referrals Name Type Priority Associated Diagnoses Order S chedule Pulmonary Medicine Outpatient Referral Routine Empyema Pleural [...]
--- OUTSIDE RECORDS SUMMARY | 2022-07-22 11:03 | XMS_ITS | Encounter Summary ---
:1940 Author Organization [facility] Address [address] [place] [address] Care Team Providers Name Role Phone Unavailable Primary Care Provider Unavailable Encounter Details Date Type Department Care Team Description 02/14/2019 Hospital Encounter Department of Marilin, Achalasi a; Laboratory Medicine Chicohankar, Cough Wi th Hemorrhage; and Pathology, M.B.B.S. Shortness Of Breath; [facility] in Dysphagi a; [facility] Reflux Disease Without Esophagitis; [place] Laparoscopic Myotomy For Ach alasia Status Post; [address] [facility] Chronic Kidney Disease Stage 4 Glomerular Filtration Rate 15-29 (HCC) [place] [phone] Social History Tobacco Use Types Packs/Day Years [...] How often do you attend synagogue or faith More than 4 time s per year [...] and Hepatology Lyric Coe M.D. [address] [place] [phone] (Wo rk) 09/01/2022 Appointment Gastroenterology and Hepatology Maurice Herrera M.D., Ph.D. [address] [place] [phone] (Gary rk) 09/02/2022 Appointment Gastroenterology and Hepatology Maurice Herrera M.D., Ph.D. [address] [place] [phone] (Gary hicks) documented as of this [...] Prothrombin Time (PT/INR) (02/14/2019 10:20 AM CDT) [facility] Method Time Signature Prothrombin 15.1 (H) 9.4 [...] [facility] - [address] [place], [place] [address] [facility] (ABNORMAL) Alkaline Phosphatase, Total and Isoenzymes (02/14/2019 10:20 AM CDT) [facility] Method Time Signature Alkaline 302 (H) 40 [...] Venous) AM CDT 10:41 AM CDT Narrative [facility] - [facility] - 02/15/2019 12:05 PM CDT Specimen Information: Specimen ID: [id number] Specimen Type: Blood Specimen Collection Start Date: 02/15/20 10:20 AM Specimen Received Date: 02/14/2019 10:41 AM Specimen ID: [id number] Specimen Type: Blood Specimen Collection Start Date: 02/15/20 10:20 AM Specimen Received Date: 02/14/2019 11:22 AM Darwin Giles LAB BLOOD NON ADD-ON Performing Organization Address City/State/ZIP Code Phon e Number [facility] - [address] [place], [place] [address] [facility] [...] Address City/State/ZIP Code Phon e Number [facility] - [address] [place], [place] [address] [facility] 25-Hydroxyvitamin [...] its performa nce characteristics determined by [facility] in a manner consistent with CLIA requirements. [...] City/State/ZIP Code Phon e Number [facility] [address] [place], [place] [address] [facility] Uric Acid (02/14/2019 10:20 [...] [facility] - [address] [place], [place] [address] [facility] (ABNORMAL) CBC with Differential (02/14/2019 10:20 AM CDT) [facility] Method Time Signature Hemoglobin 13.7 13.2 [...] Venous) AM CDT 10:41 AM CDT Darwin Giels LAB BLOOD ADD-ON Performing Organization Address City/State/ZIP Code Phon e Number [facility] - [address] [place], [place] [address] [facility] [...] >=60 02/14/2019 Black/ mL/min/BSA 12:03 PM CDT [place] Comment: ----ADDITIONAL INFORMATION---- Estimated GFR calculated [...] [facility] - [address] [place] [address] 05 [facility] documented in this encounter Visit Diagnoses Diagnosis Achalasia Cough With Hemorrhage Shortness Of Breath Dysphagia Gastroesophageal Reflux Disease Without Esophagitis Laparoscopic Myotomy For Achalasia Statu s Post Chronic Kidney Disease Stage 4 Glomerula r Filtration Rate 15-29 (HCC) documented in this encounter
--- OUTSIDE RECORDS SUMMARY | 2022-07-22 11:03 | XMS_ITS | Encounter Summary ---
:1940 Author Organization [facility] Address [address] [place] [address] Care Team Providers Name Role Phone Unavailable Primary Care Provider Unavailable Reason for Visit Reason Onset Date Comments Esophageal 12/14/2018 pre orders Encounter Details Date Type Department Care Team Description 12/14/2018 Clinical Division of Alphonso, Esophageal (pre Communication Gastroenterology in [place], [facility]) [place], [place] Trinh, Ph.D. [address] [facility] [address] [place] [phone] [place] [address] Social History Tobacco Use Types Packs/Day Years [...] How often do you attend adventist or sabianism More than 4 time s [...] Gastroenterology and Hepatology Lyric Coe M.D. [address] [place] [address] [phone] (Gary hicks) 09/01/2022 Appointment Gastroenterology and Hepatology Maurice Herrera M.D., Ph.D. [address] [place] [address] [phone] (Gary hicks) 09/02/2022 Appointment Gastroenterology and Hepatology Maurice Herrera M.D., Ph.D. [address] [place] [address] [phone] (Gary hicks) documented as of this encounter Visit Diagnoses Not on filedocumented in this encounter
--- OUTSIDE RECORDS SUMMARY | 2022-07-22 11:03 | XMS_ITS | Encounter Summary ---
:1940 Author Organization [facility] Address [address] [place] [address] Care Team Providers Name Role Phone Unavailable [...] How often do you attend anabaptism or orthodoxy More than 4 time s [...] Team Description 09/01/2022 Appointment Gastroenterology and Hepatology Lenka Coe M.D. [address] [place] [address] [phone] (Wo rk) 09/01/2022 Appointment Gastroenterology and Hepatology Maurice Herrera M.D., Ph.D. [address] [place] [address] [phone] (Wo rk) 09/02/2022 Appointment Gastroenterology and Hepatology Maurice Herrera M.D., Ph.D. [address] [place] [address] [phone] (Wo rk) documented as of this encounter Procedures Procedure Name Priority Date/Time Associated Diagnosis Comme nts HXGENERAL PATHOLOGY Routine 06/25/2003 3:49 PM Re sults for this REPORT [employer] procedure are i n the results section. EEG ROUTINE - AWAKE Routine 06/25/2003 8:13 AM Re sults for this AND SLEEP [employer] [employer] procedure are i n the results section. MR BRAIN WITHOUT Routine 06/25/2003 7:31 AM Resul ts for this AND WITH IV [employer] procedure are i n CONTRAST the results section. documented in this encounter Results Hx general Pathology Report (06/25/2003 3:49 PM [employer]) Specimen Anatomical Collection Method Collection Time Receive d Time (Source) Location / / Volume Laterality 06/25/2003 3:49 PM 3 3:49 [facility] PM [facility] Narrative [facility] - 06/25/2003 3:49 PM [employer] [employer] ?06/25/2003 General Biopsy ? ([id number]) ? Requested By: ??Ta Jasmine ??[phone] ? TISSUE DESCRIPTION: [id number] A1 ?? A. ??Bulb, Duodenum biopsy: ??(1 piece 0.3 cm. in diameter) ?DIAGNOSIS: ?? Small bowel, duodenal bulb, nodule, end oscopic biopsy: ??Heterotopic fundic-type mucosa. ? 06/26/03 ??Rahel Woo M.D. [phone] ? Procedure Note 11/11/2017 06/25/2003 General Biopsy ([id number]) Requested By: Dieudonne Higgins M.D. [id number] TISSUE DESCRIPTION: [id number] A. Bulb, Duodenum biopsy: (1 piece 0.3 cm. in diameter) DIAGNOSIS: Small bowel, duodenal bulb, nodule, end oscopic biopsy: Heterotopic fundic-type mucosa. 06/26/03 Rahel Woo M.D. [phone] Historical Provider LAB PATHOLOGY/CYTOLOGY ORDER SHON Performing Organization Address City/State/ZIP Code Phon e Number [facility] - [address] [place], [place] [address] [facility] EEG routine - awake and sleep (06/25/2003 8:13 AM [employer]) Specimen (Source) Anatomical Collection Method Collection Time Re ceived Time Location / / Volume Laterality 06/25/2003 8:13 AM [facility] RADIOLOGY SYSTEM - 06/25/2003 8:13 AM [employer] ?? 25 Jun 2003 ? Electroencephalography ?Final Report ? Referring Physician: ??Gen lenka Schaffer ??[phone] ?Date: ??25 Jun 2003 ?? EEG Event Host: ? Micheal Lewis [phone] ?? Clinical Problem: ? Seizures ?? CLINICAL [...] right parasaggital regions (awake and ?? asleep); ??finger waver. ?? REPORT: ??The recording during wakef ulness [...] ?? breathing was observed during sleep. ??The finger waver was unremarkable. Micheal Lewis (Signature date Jun 2003 12:12) Procedure Note Jos Lewis M.D. - 12/04/2017Formatting o f this note might be different from the original. 25 Jun 2003 Electroencephalography Fin al Report Referring Physician: Tyra Schaffer [phone] Date: 25 Jun 2003 EEG Event Host: Micheal Lewis [id number] Clinical Problem: Seizures CLINICAL INTERPRETATION: The EEG [...] and right parasaggital regions (awake and asleep); finger waver. REPORT: The recording during wakefulnes s shows [...] breathing was observed during sleep. Th e finger waver was unremarkable. Micheal Lewis (Signature date Jun 2003 12:12) Tyra Schaffer M.D. NEUROLOGY ORDERABLES Performing Organization Address City/State/ZIP Code Phon e Number [facility] [address] [place] [address], U SA MR Brain without and with IV Contrast (06/25/2003 7:31 AM [employer]) Anatomical Region Laterality Modality Head, Brain N/A Magnetic Resonance Specimen (Source) Anatomical Collection Method Collection Time Re ceived Time Location / / Volume Laterality 06/25/2003 7:31 AM [facility] Narrative 06/25/2003 8:38 AM [facility] [employer] 25-Jun-2003 07:31:00 ??Exam: MRI Hd wo&w Indications: [...] 117.200 ?? Dia.450 ?? Franci Starks MD [phone] ([id number]) ?? I have reviewed the films/images and agr ee with the above interpretation. Electronically signed by: ?? Lizzette Varela M.D. [id number] 25-Jun-2003 08:36 Procedure Note Keila Varela M.D. [...] negative. Ind: 117.200 Dia.450 Franci Starks MD [phone] ([id number]) I have reviewed the films/images and agr ee with the above interpretation. Electronically signed by: Lizzette Varela M.D. [id number] 25-Jun-2003 08:36 Fede Castellanos M.D. IMMike MRI PROCEDURES documented in this encounter Visit Diagnoses Not on filedocumented in this encounter
--- OUTSIDE RECORDS SUMMARY | 2022-07-22 11:03 | XMS_ITS | Encounter Summary ---
:1940 Author Organization [facility] Address [address] [place] [address] Care Team Providers Name Role Phone Unavailable Primary Care Provider Unavailable Reason for Visit Outpatient (Routine) - Closed Specialty Diagnoses / Procedures Referred By Contact Refer red To Contact Pulmonary Medicine Diagnoses Achalasia Cough With Hemorrhage Shortness Of Breath Dysphagia Gastroesophageal Reflux Disease Without Esophagitis Laparoscopic Myotomy For Achalasia Status Post Chronic Kidney Disease Stage 4 Glomerular Filtration Rate 15-29 ([facility]) [facility] Laura GranadosBBaileyS. 200 [place] [address] Referral ID Status Reason Start Date Expiration Date Visits V isits Requested Authorized [id number] Closed Specialty 02/14/2019 02/14/2020 1 1 Services Required Encounter Details Date Type Department Care Team Description 02/20/2019 Comprehensive Visit Division of Feroz Bo a; Pulmonary Jesu Mendes, Cough With He morrhage; Medicine in M.D. Shortness Of Breath; [place], [address] [place] [address] Dysphagia; [place], [place] Gastroesophageal Reflux Dise ase Without Esophagitis; [address] [place] [phone] Laparoscopic Myotomy For Achalasia Statu s Post; [place], [place] [phone] Chronic Kidney Disease Stage 4 Glomerular Filtration Rate 15-29 ([facility]) [id number] (Work) [phone] Social History Tobacco Use Types Packs/Day Years [...] How often do you attend sabianist or advent More than 4 time s per year 04/11/2022 services? Do you belong to any clubs or organizations Yes 04/11/2022 such as sabianist groups, unions, fra[employer] or athletic groups, or school groups? How [...] PFT's-mild restriction with TLC 66% predicted. Chest n-qik-kvtyjqhst patchy infiltrate and atelectasis with prominent central [...] Gastroenterology and Hepatology Lyric Coe M.D. [address] [place] [phone] (Wo fabiola) 09/01/2022 Appointment Gastroenterology and Hepatology Maurice Herrera M.D., Ph.D. [address] [place] [phone] (Wo fabiola) 09/02/2022 Appointment Gastroenterology and Hepatology Maurice Herrera M.D., Ph.D. [address] [place] [phone] (Wo fabiola) documented as of this encounter Visit Diagnoses Diagnosis Achalasia Cough With Hemorrhage Shortness Of Breath Dysphagia Gastroesophageal Reflux Disease Without Esophagitis Laparoscopic Myotomy For Achalasia Statu s Post Chronic Kidney Disease Stage 4 Glomerula r Filtration Rate 15-29 (HCC) documented in this encounter
--- OUTSIDE RECORDS SUMMARY | 2022-07-22 11:03 | XMS_ITS | Encounter Summary ---
:1940 Author Organization [facility] Address [address] [place] [address] Care Team Providers Name Role Phone Unavailable Primary Care Provider Unavailable Reason for Referral Outpatient (Routine) - Closed Specialty Diagnoses / Procedures Referred By Contact Refer red To Contact Diagnoses Achalasia Guillermo Werner M.D., [facility] Procedures EGD (EsophagoGastroDuodenoscopy) Restricted Ph.D. 200 [place] [phone] Referral ID Status Reason Start Date Expiration Date Visits Requ ested Visits Authorized [id number] Closed 12/17/2018 12/17/2019 1 1 Reason for Visit Outpatient (Routine) - Closed Specialty Diagnoses / Procedures Referred By Contact Refer red To Contact Diagnoses Achalasia Guillermo Werner M.D., [facility] Procedures EGD (EsophagoGastroDuodenoscopy) Restricted Ph.D. [address] [place] [address] [phone] Referral ID Status Reason Start Date Expiration Date Visits Requ ested Visits Authorized [id number] Closed 12/17/2018 12/17/2019 1 1 Encounter Details Date Type Department Care Team Description 02/18/2019 Hospital Encounter Division of Veronika Werner M.D., Ph.D. [address] [place] [phone] Achalasia Gastroenterology in Juan Pablo Blevins, PIPE PROCESSOR, FRONT DESK RECEPTIONIST 200 [place] [address] [place], [place] 200 [place], [place] [phone] Social History Tobacco Use Types Packs/Day [...] How often do you attend islam or scientologist More than 4 time s [...] sent through Care Everywhere.Care Following Upper Endoscopy (Bahamian)Types of Diets (Bahamian)documented in this encounter Medications at Time of [...] Gastroenterology and Hepatology Lyric Coe M.D. [address] [place] [address] (Wo rk) 09/01/2022 Appointment Gastroenterology and Hepatology Maurice Herrera M.D., Ph.D. [address] [place] [phone] (Wo rk) 09/02/2022 Appointment Gastroenterology and Hepatology Maurice Herrera M.D., Ph.D. 200 [place] [phone] (Wo rk) documented as of this encounter [...] Organization Address City/State/ZIP Code Phon e Number [employer] NA documented in this encounter Visit [...]
--- OUTSIDE RECORDS SUMMARY | 2022-07-22 11:03 | XMS_ITS | Encounter Summary ---
:1940 Author Organization [facility] Address [address] [place] [address] Care Team Providers Name Role Phone Unavailable [...] How often do you attend buddhist or sabianist More than 4 time s [...] slept in a long term (including now)? Sex Assigned at Date Recorded Male 04/11/2022 12:05 PM CDT documented as of this encounter Plan of Treatment Upcoming Encounters Date Type Specialty Care Team Description 09/01/2022 Appointment Gastroenterology and Hepatology Lyric Coe M.D. [address] [place] [phone] (Wo rk) 09/01/2022 Appointment Gastroenterology and Hepatology Maurice Herrera M.D., Ph.D. [address] [place] [phone] (Wo rk) 09/02/2022 Appointment Gastroenterology and Hepatology Maurice Herrera M.D., Ph.D. [address] [place] [phone] (Wo rk) documented as of this encounter Procedures Procedure Name Priority Date/Time Associated Diagnosis Comme nts US EXTREMITY VEINS Routine 07/06/2002 9:51 AM Res ults for this HOME OFFICE CLAIM SPECIALIST procedure are i n the results section. DX CHEST POST PICC Routine 07/04/2002 8:12 PM Res ults for this PLACEMENT 1 VIEW HOME OFFICE CLAIM SPECIALIST procedure a re in the results section. US EXTREMITY VEINS Routine 07/04/2002 9:06 AM Res ults for this HOME OFFICE CLAIM SPECIALIST procedure are i n the results section. US EXTREMITY VEINS Routine 06/30/2002 10:55 AM Re sults for this HOME OFFICE CLAIM SPECIALIST procedure are i n the results section. documented in this encounter Results US Extremity Veins (07/06/2002 9:51 AM HOME OFFICE CLAIM SPECIALIST) Anatomical Region Laterality Modality Vascular, Upper Extremity, Lower Extremity Ultrasound Specimen (Source) Anatomical Collection Method Collection Time Re ceived Time Location / / Volume Laterality 07/06/2002 9:51 AM HOME OFFICE CLAIM SPECIALIST Narrative 07/06/2002 12:16 PM HOME OFFICE CLAIM SPECIALIST 06-Jul-2002 09:51:00 ??Exam: R US Extremity Veins Limited Indications: RUE--F/U DVT, PLEASE DO SAT URDAY PER DRBailey ??[id number] ORIGINAL REPORT - 06-Jul-2002 12:16:00 Doppler ultrasound [...] Electronically signed by: ?? Arvin Bland M.D. [id number] ([id number]) 06-Jul-20 02 12:16 Procedure Note Chava Bland M.D. - 11/24/2017Formatti ng of this note might be different from the original. 06-Jul-2002 09:51:00 Exam: R US Extremit y Veins Limited Indications: RUE--F/U DVT, PLEASE DO SAT URDAY PER [phone] ORIGINAL REPORT - 06-Jul-2002 12:16:00 Doppler ultrasound [...] .556 Electronically signed by: Arvin Bland M.D. [id number] [id number]) 06-Jul-20 12:16 Edison Vazquez M.D. IMG US PROCEDURES DX Chest Post PICC Placement 1 View (07/04/2002 8:12 PM HOME OFFICE CLAIM SPECIALIST) Anatomical Region Laterality Modality Chest N/A Radiographic Imaging Specimen (Source) Anatomical Collection Method Collection Time Re ceived Time Location / / Volume Laterality 07/04/2002 8:12 PM HOME OFFICE CLAIM SPECIALIST Narrative 07/05/2002 10:44 AM HOME OFFICE CLAIM SPECIALIST 04-Jul-2002 20:12:00 ??Exam: Chest-PICC Indications: left picc placement-svc ORIGINAL REPORT - 04-Jul-2002 20:49:00 Left PICC line with tip at the junction of the left innominate vein and SVC. No pneumothorax. Electronically signed by: ?? Norris Peraza [phone] [id number]) 04-Jul-20 02 20:49 I have reviewed [...] No pneumothorax. Electronically signed by: Norris Peraza [phone] [id number]) 04-Jul-20 02 20:49 I have reviewed the films/images and agr ee with the above interpretation. Electronically signed by: Eric. Dai Boyce M.D. 05-Jul-2002 10:44 Edison Vazquez M.D. IMG DIAGNOSTIC IMAGING PROCE DURES US Extremity Veins (07/04/2002 9:06 AM HOME OFFICE CLAIM SPECIALIST) Anatomical Region Laterality Modality Vascular, Upper Extremity, Lower Extremity Ultrasound Specimen (Source) Anatomical Collection Method Collection Time Re ceived Time Location / / Volume Laterality 07/04/2002 9:06 AM HOME OFFICE CLAIM SPECIALIST Narrative 07/04/2002 11:44 AM HOME OFFICE CLAIM SPECIALIST 04-Jul-2002 09:06:00 ??Exam: R US Extremity Veins Limited Indications: SWELLING/R/O THROMBOSIS^MB3 [id number] ORIGINAL REPORT - 04-Jul-2002 11:44:00 Ultrasound examination [...] signed by: ?? Brandee Conde, ??D.O. ??[phone] 11:44 Procedure Note Neeru Conde D.O. - 11/24/2017Form atting of this note might be different from the original. 04-Jul-2002 09:06:00 Exam: R US Extremit y Veins Limited Indications: SWELLING/R/O THROMBOSIS^MB3 [id number] ORIGINAL REPORT - 04-Jul-2002 11:44:00 Ultrasound examination [...] PROCEDURES US Extremity Veins (06/30/2002 10:55 AM HOME OFFICE CLAIM SPECIALIST) Anatomical Region Laterality Modality Vascular, Upper Extremity, Lower Extremity Ultrasound Specimen (Source) Anatomical Collection Method Collection Time Re ceived Time Location / / Volume Laterality 06/30/2002 10:55 AM HOME OFFICE CLAIM SPECIALIST Narrative 07/01/2002 10:57 AM HOME OFFICE CLAIM SPECIALIST 30-Jun-2002 10:55:00 ??Exam: US Extremity Veins Complete [...] Electronically signed by: ?? Marysol Mejia MD [phone] ([id number]) 2 15:57 I have reviewed the films/images and agr ee with the above interpretation. Electronically signed by: ?? Juan David [id number] [id number]) 2 10:57 Procedure Note Provider, Historical - 11/24/2017Formatt ing of this note might be different from the original. 30-Jun-2002 10:55:00 Exam: US Extremity Veins Complete Indications: SWELLING/PAIN ORIGINAL REPORT - 30-Jun-2002 15:57:00 Doppler ultrasound evaluation of bilater dc lower extremity venous systems demonstrates patent and easily compressible common femoral, superficial femoral, and popliteal veins in both legs. No evidence for deep venous thrombosis. Ultrasound electronic images only. NO FI LMS Ind: [phone] Dia.120 Electronically signed by: Marysol Mejia MD [phone] ([id number]) 2 15:57 I have reviewed the films/images and agr ee with the above interpretation. Electronically signed by: Juan David [id number] [id number]) 2 10:57 Bassam BAKER US PROCEDURES documented in this encounter Visit Diagnoses Not on filedocumented in this encounter
--- OUTSIDE RECORDS SUMMARY | 2022-07-22 11:03 | XMS_ITS | Encounter Summary ---
:1940 Author Organization [facility] Address [address] [place] [address] Care Team Providers Name Role Phone Unavailable [...] How often do you attend quaker or muslim More than 4 time s [...] Gastroenterology and Hepatology Lyric Coe M.D. [address] [place] [phone] (Wo rk) 09/01/2022 Appointment Gastroenterology and Hepatology Maurice Herrera M.D., Ph.D. [address] [place] [address] [phone] (Wo rk) 09/02/2022 Appointment Gastroenterology and Hepatology Maurice Herrera M.D., Ph.D. [address] [place] [phone] (Wo rk) documented as of this encounter Visit Diagnoses Not on filedocumented in this encounter
--- OUTSIDE RECORDS SUMMARY | 2022-07-22 11:03 | XMS_ITS | Encounter Summary ---
:1940 Author Organization [facility] Address [address] [place] [address] Care Team Providers Name Role Phone Unavailable Primary Care Provider Unavailable Encounter Details Date Type Department Care Team Description 02/14/2019 Hospital Encounter Department of Marilin, Achalasi a; Radiology, [place] Subhankar, Cough With H emorrhage; [facility]; [facility]; [place] Gastroesophageal Reflux Dise ase Without Esophagitis; [address] [facility] Laparoscopic Myotomy For Ach alasia Status Post; [place], [place] Chronic Kidney Disease Stage 4 Glomerular Filtration Rate 15-29 ([facility]) [phone] Social History Tobacco Use Types Packs/Day Years [...] How often do you attend hoahaoism or caodaism More than 4 time s [...] and Hepatology Lyric Coe M.D. [address] [place] [phone] (Wo rk) 09/01/2022 Appointment Gastroenterology and Hepatology Maurice Herrera M.D., Ph.D. [address] [place] [phone] (Gary hicks) 09/02/2022 Appointment Gastroenterology and Hepatology Maurice Herrera M.D., Ph.D. [address] [place] [phone] (Gary rk) documented as of this encounter Procedures [...]
--- OUTSIDE RECORDS SUMMARY | 2022-07-22 11:03 | XMS_ITS | Encounter Summary ---
:1940 Author Organization [facility] Address [address] [place] [address] Care Team Providers Name Role Phone Unavailable [...] How often do you attend mandaeism or islam More than 4 time s [...] and Hepatology Lyric Coe M.D. [address] [place] [address] [phone] (Wo rk) 09/01/2022 Appointment Gastroenterology and Hepatology Maurice Herrera M.D., Ph.D. [address] [place] [address] [phone] (Wo rk) 09/02/2022 Appointment Gastroenterology and Hepatology Maurice Herrera M.D., Ph.D. [address] [place] [address] [phone] (Wo rk) documented as of this encounter [...]
--- OUTSIDE RECORDS SUMMARY | 2022-07-22 11:03 | XMS_ITS | Encounter Summary ---
:1940 Author Organization [facility] Address [address] [place] [address] Care Team Providers Name Role Phone Unavailable Primary Care Provider Unavailable Encounter Details Date Type Department Care Team Description 07/29/2003 - Hospital Encounter HX RST SLEEP FLOOR Shivam, 08/05/2003 PRACTICE Juan Pablo Purdy M.D. [address] [place] [phone] Social History Tobacco Use Types Packs/Day Years [...] or slept in a long-term (including now)? Sex Assigned at Date Recorded Male 04/11/2022 12:05 PM CDT documented as of this encounter Plan of Treatment Upcoming Encounters Date Type Specialty Care Team Description 09/01/2022 Appointment Gastroenterology and Hepatology Lyric Coe M.D. [address] [place] [address] [phone] (Wo rk) 09/01/2022 Appointment Gastroenterology and Hepatology Maurice Herrera M.D., Ph.D. [address] [place] [phone] (Gary rk) 09/02/2022 Appointment Gastroenterology and Hepatology Maurice Herrera M.D., Ph.D. [address] [place] [address] [phone] (Wo rk) documented as of this encounter Visit Diagnoses Not on filedocumented in this encounter
--- OUTSIDE RECORDS SUMMARY | 2022-07-22 11:03 | XMS_ITS | Encounter Summary ---
:1940 Author Organization [facility] Address [address] [place] [address] Care Team Providers Name Role Phone Unavailable Primary Care Provider Unavailable Encounter Details Date Type Department Care Team Description 02/14/2019 Hospital Encounter Department of Marilin, Achalasi a; [facility], [facility], Cough With Hemorrhage; [facility]; [facility]; [place] Gastroesophageal Reflux Dise ase Without Esophagitis; [address] [facility] Laparoscopic Myotomy For Ach alasia Status Post; [place], [place] Chronic Kidney Disease Stage 4 Glomerular Filtration Rate 15-29 ([facility]) [id number] Social History Tobacco Use Types Packs/Day Years [...] often do you attend latter day or methodist More than 4 time s [...] Gastroenterology and Hepatology Lenka Coe M.D. [address] [place] [address] [phone] (Gary hicks) 09/01/2022 Appointment Gastroenterology and Hepatology Maurice Herrera M.D., Ph.D. [address] [place] [phone] (Gary hicks) 09/02/2022 Appointment Gastroenterology and Hepatology Maurice Herrera M.D., Ph.D. [address] [place] [phone] (Gary hicks) documented as of this [...]
--- OUTSIDE RECORDS SUMMARY | 2022-07-22 11:03 | XMS_ITS | Encounter Summary ---
:1940 Author Organization [facility] Address [address] [place] [address] Care Team Providers Name Role Phone Unavailable Primary Care Provider Unavailable Encounter Details Date Type Department Care Team Description 02/11/2019 Clinical Communication Division of Alphonso Gastroenterology in Trinh Li, [place], [place] Ph.D. [address] [facility] [address] [place] [phone] [place], [place] [phone] Social History Tobacco Use Types Packs/Day Years [...] How often do you attend synagogue or shinto More than 4 time s [...] Gastroenterology and Hepatology Lyric Coe M.D. [address] [place] [phone] (Wo rk) 09/01/2022 Appointment Gastroenterology and Hepatology Maurice Herrera M.D., Ph.D. [address] [place] [phone] (Wo rk) 09/02/2022 Appointment Gastroenterology and Hepatology Maurice Herrera M.D., Ph.D. [address] [place] [phone] (Wo rk) documented as of this encounter Visit Diagnoses Not on filedocumented in this encounter
--- OUTSIDE RECORDS SUMMARY | 2022-07-22 11:03 | XMS_ITS | Encounter Summary ---
:1940 Author Organization [facility] Address [address] [place] [address] Care Team Providers Name Role Phone Unavailable Primary Care Provider Unavailable Reason for Referral Outpatient (Routine) - Closed Specialty Diagnoses / Procedures Referred By Contact Refer red To Contact Diagnoses MattiealasiGuillermo Roberto M.D., [facility] Procedures [place] Esophagram CA XR ESOPHAGUS HC XR ESOPHAGUS CA XR ESOPHAGUS Ph.D. [address] [place] [phone] Referral ID Status Reason Start Date Expiration Date Visits Requ ested Visits Authorized [id number] Closed 12/17/2018 12/17/2019 1 1 Reason for Visit Outpatient (Routine) - Closed Specialty Diagnoses / Procedures Referred By Contact Refer red To Contact Diagnoses BriseidasiGuillermo Roberto M.D., [facility] Procedures FL Esophagram CA XR ESOPHAGUS HC XR ESOPHAGUS CA XR ESOPHAGUS Ph.D. [address] [place] [address] [phone] Referral ID Status Reason Start Date Expiration Date Visits Requ ested Visits Authorized [id number] Closed 12/17/2018 12/17/2019 1 1 Encounter Details Date Type Department Care Team Description 02/15/2019 Hospital Encounter Department of Radiology, Cinthya Werner, [facility] [place], [place] [address] [facility] [address] [place] [phone] Social History Tobacco Use Types Packs/Day Years [...] How often do you attend spiritism or muslim More than 4 time s [...] 0 12/2006/06/2022 tablet and 2 mg on ///Mon. documented as of this encounter Plan of Treatment Upcoming Encounters Date Type Specialty Care Team Description 09/01/2022 Appointment Gastroenterology and Hepatology Lyric Coe M.D. [address] [place] [address] [phone] (Gary hicks) 09/01/2022 Appointment Gastroenterology and Hepatology Maurice Herrera M.D., Ph.D. [address] [place] [address] [phone] (Gary hicks) 09/02/2022 Appointment Gastroenterology and Hepatology Maurice Herrera M.D., Ph.D. [address] [place] [address] [phone] (Gary hicks) documented as of this encounter [...]
--- OUTSIDE RECORDS SUMMARY | 2022-07-22 11:03 | XMS_ITS | Encounter Summary ---
:1940 Author Organization [facility] Address [address] [place] [address] Care Team Providers Name Role Phone Unavailable Primary Care Provider Unavailable Encounter Details Date Type Department Care Team Description 07/30/2003 - Hospital Encounter HX RST SLEEP FLOOR Shivam, 08/06/2003 PRACTICE Juan Pablo Purdy M.D. [address] [place] [address] Social History Tobacco Use Types Packs/Day Years [...] How often do you attend congregational or cheondoism More than 4 time s [...] Gastroenterology and Hepatology Lyric Coe M.D. [address] [place] [address] [phone] (Wo rk) 09/01/2022 Appointment Gastroenterology and Hepatology Maurice Herrera M.D., Ph.D. [address] [place] [phone] (Gary rk) 09/02/2022 Appointment Gastroenterology and Hepatology Maurice Herrera M.D., Ph.D. [address] [place] [address] [phone] (Wo rk) documented as of this encounter Visit Diagnoses Not on filedocumented in this encounter
--- OUTSIDE RECORDS SUMMARY | 2022-07-22 11:03 | XMS_ITS | Encounter Summary ---
:1940 Author Organization [facility] Address [address] [place] [address] Care Team Providers Name Role Phone Unavailable Primary Care Provider Unavailable Encounter Details Date Type Department Care Team Description 02/14/2019 Hospital Encounter Department of Marilin, Achalasi a; Laboratory Medicine Chicohankar, Cough Wi th Hemorrhage; and Pathology, [facility] Shortness Of Breath; [facility] in Dysphagi a; [facility] Reflux Disease Without Esophagitis; [place] Laparoscopic Myotomy For Ach alasia Status Post; [address] [facility] Chronic Kidney Disease Stage 4 Glomerular Filtration Rate 15-29 (HCC) [place] [address] Social History Tobacco Use Types Packs/Day Years [...] How often do you attend scientology or restorationist More than 4 time s [...] Gastroenterology and Hepatology Lyric Coe M.D. [address] [place] [phone] (Wo rk) 09/01/2022 Appointment Gastroenterology and Hepatology Maurice Herrera M.D., Ph.D. [address] [place] [phone] (Wo rk) 09/02/2022 Appointment Gastroenterology and Hepatology Maurice Herrera M.D., Ph.D. [address] [place] [phone] (Gary rk) documented as of this [...] [facility] LAB URINE ORDERABLES Performing Organization Address [facility]/ZIP Code Phon e Number [facility] - [address] (ABNORMAL) Microalbumin, Random, Urine (02/14/2019 10:57 AM CDT) P athologist Signature Microalbumin 101.0 mg/L 02/14/2019 11:27 AM CDT Comment: ----ADDITIONAL INFORMATION---- This test has been modified from the man ufacturer's instructions. Its performance characteri stics were determined by [facility] in a manner co nsistent [...] [facility] LAB URINE ORDERABLES Performing Organization Address City/[facility] Code Phon e Number [facility] - [address] (ABNORMAL) Urinalysis with Microscopic: Urine, Clean [...] and its performa nce characteristics determined by [facility] in a manner co nsistent [...] City/State/ZIP Code Phon e Number [facility] - [address] [place] [phone] [address] [facility] documented in this encounter Visit Diagnoses Diagnosis Achalasia Cough With Hemorrhage Shortness Of Breath Dysphagia Gastroesophageal Reflux Disease Without Esophagitis Laparoscopic Myotomy For Achalasia Statu s Post Chronic Kidney Disease Stage 4 Glomerula r Filtration Rate 15-29 (HCC) documented in this encounter
--- OUTSIDE RECORDS SUMMARY | 2022-07-22 11:03 | XMS_ITS | Encounter Summary ---
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 [address] [place] [address] [place], [place] [address] [place] [phone] Anesthesia Record Procedure Summary Procedure Name Responsible Anesthesia Start Anesthesia Stop Anesthesiologist Time Time EGD Juan Pablo Blevins APRN, 02/18/19 1536 02/18 1615 (ESOPHAGOGASTRODUODE STAINLESS STEEL FINISHER NOSCOPY) RESTRICTED Events Date Time Event Comment [...] How often do you attend anabaptist or faith More than 4 time s [...] Room / Location: Division of Gastroenterology in [place], [place] Anesthesia Start: 1536 Anesthesia Stop: 1615 [...] with patient /legal guardian or through an helpdesk technician.. Risks/Benefits/Alternatives of Blood transfusion discussed with patient, [...] Gastroenterology and Hepatology Lyric Coe M.D. [address] [place] [address] [phone] (Gary hicks) 09/01/2022 Appointment Gastroenterology and Hepatology Maurice Herrera M.D., Ph.D. [address] [place] [address] [phone] (Gary hicks) 09/02/2022 Appointment Gastroenterology and Hepatology Maurice Herrera M.D., Ph.D. [address] [place] [address] [phone] (Gary hicks) documented as of this encounter [...]
--- OUTSIDE RECORDS SUMMARY | 2022-07-22 11:03 | XMS_ITS | Encounter Summary ---
:1940 Author Organization [facility] Address [address] [place] [address] Care Team Providers Name Role Phone Unavailable Primary Care Provider Unavailable Reason for Referral Outpatient (Routine) - Closed Specialty Diagnoses / Referred By Referred To Cont act Procedures [facility] Laura GranadosB.S. [address] [place] [address] Referral ID Status Reason Start Date Expiration Date Visits Requ ested Visits Authorized [id number] Closed 02/14/2019 02/14/2020 1 1 utpatient (Routine) - Closed Specialty Diagnoses / Procedures Referred By Contact Refer red To Contact Pulmonary Medicine Diagnoses Achalasia Cough With Hemorrhage Shortness Of Breath Dysphagia Gastroesophageal Reflux Disease Without Esophagitis Laparoscopic Myotomy For Achalasia Status Post Chronic Kidney Disease Stage 4 Glomerular Filtration Rate 15-29 ([facility]) [facility] Granados[facility] [address] [place] [address] Referral ID Status Reason Start Date Expiration Date Visits V isits Requested Authorized [id number] Closed Specialty 02/14/2019 02/14/2020 1 1 Services Required utpatient (Routine) - Closed Specialty Diagnoses / Procedures Referred By Contact Refer red To Contact Nephrology and Diagnoses Achalasia Cough With Hemorrhage Shortness Of Breath Dysphagia Gastroesophageal Reflux Disease Without Esophagitis Laparoscopic Myotomy For Achalasia Status Post Chronic Kidney Disease Stage 4 Glomerular Filtration Rate 15-29 ([facility]) [facility] Chan Granados [address] [place] [address] Referral ID Status Reason Start Date Expiration Date Visits Requ ested Visits Authorized [id number] Closed 02/14/2019 02/14/2020 1 1 utpatient (Routine) - Closed Specialty Diagnoses / Procedures Referred By Contact Refer red To Contact Diagnoses Guillermo Ayers M.D., [facility] Procedures EGD (EsophagoGastroDuodenoscopy) Restricted Ph.D. [address] [place] [phone] Referral ID Status Reason Start Date Expiration Date Visits Requ ested Visits Authorized [id number] Closed 12/17/2018 12/17/2019 1 1 Outpatient (Routine) - Closed Specialty Diagnoses / Procedures Referred By Contact Refer red To Contact Diagnoses Guillermo Ayers M.D., [facility] Procedures ECG 12 Lead SD EKG 12 LEAD TRACE ONLY SD EKG I&R ONLY Ph.D. [address] [place] [phone] Referral ID Status Reason Start Date Expiration Date Visits Requ ested Visits Authorized [id number] Closed 12/17/2018 12/17/2019 1 1 Outpatient (Routine) - Closed Specialty Diagnoses / Procedures Referred By Contact Refer red To Contact Thoracic Surgery Diagnoses Guillermo Ayers M.D., Ph.D. [address] [place] [phone] Referral ID Status Reason Start Date Expiration Date Visits Requ ested Visits Authorized [id number] Closed 12/17/2018 12/17/2019 1 1 Outpatient (Routine) - Closed Specialty Diagnoses / Procedures Referred By Contact Refer red To Contact Diagnoses Achalasia Guillermo Werner M.D., [facility] Procedures FL Esophagram SD XR ESOPHAGUS HC XR ESOPHAGUS SD XR ESOPHAGUS Ph.D. [address] [place] [address] Referral ID Status Reason Start Date Expiration Date Visits Requ ested Visits Authorized [id number] Closed 12/17/2018 12/17/2019 1 1 Reason for Visit Reason Comments Dysphasia Esoph Appointment Request (Routine) - Closed Specialty Diagnoses / Referred By Contact Referred To Procedures Contact Gastroenterology and [facility]at[facility] Trinh [address] [place] [phone] Referral ID Status Reason Start Date Expiration Date Visits Requ ested Visits Authorized [id number] Closed 12/14/2018 12/14/2019 1 Encounter Details Date Type Department Care Team Description 02/14/2019 Comprehensive Visit Division of Krystal Achalasi a (Primary Dx); Gastroenterology in y, Cough Wi th Hemorrhage; [place], [place] Subhankar, Shortness Of Breath; [address] [facility] Dysphagia; [place], [place] Gastroesophage al Reflux Disease Without Esophagitis; [phone] Laparoscopic Myotomy For Ach alasia Status Post; [phone] Chronic Kidney Disease Stage 4 Glomerular Filtration [...] in this encounter Progress Notes Erica Dover RBaileyN. - 02/14/2019 7:40 AM CDT INFORMATION DISCUSSED [...] neck surgery? ??Yes, brain surgery here at [place] Do you have a continuous infusion device [...] history of being diagnosed with achalasia in 2. In 1968 he had what sounds from [...] of any scanned into our records done [id number] revealed no esophagitis. All these endoscopies noted [...] 4 Glomerular Filtration Rate 15-29 ([facility]) Nephrology and Hypertension- Chronic kidney disease consult [...] failure as well. CT CT Job ID: [id number] documented in this encounter Plan of Treatment Upcoming Encounters Date Type Specialty Care Team Description 09/01/2022 Appointment Gastroenterology and Hepatology Lyric Coe M.D. [address] [place] [phone] (Gary hicks) 09/01/2022 Appointment Gastroenterology and Hepatology Maurice Herrera M.D., Ph.D. [address] [place] [phone] (Gary hicks) 09/02/2022 Appointment Gastroenterology and Hepatology Maurice Herrera M.D., Ph.D. [address] [place] [phone] (Gary hicks) Scheduled Referrals Name Type Priority [...] athologist Signature DLCO SINGLE 17.42 ml/(min*mm 02/20/2019 [facility] BREATH POST Hg) 1:52 PM [address]T [address] SINGLE 4.05 L 02/20/2019 [facility] BREATH POST 1:52 PM CDT SUITE H2EksHpbl 98.00 % 02/20/2019 [facility] 1:52 PM CDT SUITE [id number] 96.00 % 02/20/2019 [facility] 1:52 PM CDT SUITE PulseRest 73.00 1/min 02/20/2019 [facility] 1:52 PM CDT SUITE PulseExer 129.00 1/min 02/20/2019 [facility] 1:52 PM CDT [address] EXER TIME 3.00 min 02/20/2019 [facility] 1:52 PM CDT SUITE STEP HEIGHT 9.00 Inch 02/20/2019 [facility] PRE 1:52 PM CDT [address] VC MAX POST 2.46 L 02/20/2019 [facility] 1:52 PM CDT SUITE PostFEV1 1.76 L 02/20/2019 [facility] 1:52 PM CDT SUITE FEV1/FVC POST 71.87 % 02/20/2019 [facility] 1:52 PM CDT SUITE PostFVC 2.46 L 02/20/2019 [facility] 1:52 PM CDT SUITE FET POST 6.10 sec 02/20/2019 [facility] 1:52 PM CDT SUITE PEF POST 8.10 L/s 02/20/2019 [facility] 1:52 PM CDT SUITE FEF 25-75 % 1.10 L/s 02/20/2019 [facility] 1:52 PM CDT SUITE VC MAX PRE 2.50 L 02/20/2019 [facility] 1:52 PM CDT SUITE FEV1 1.82 L 02/20/2019 [facility] 1:52 PM CDT SUITE FEV1/FVC 73.95 % 02/20/2019 [facility] 1:52 PM CDT SUITE MVV 55.36 L/min 02/20/2019 [facility] 1:52 PM CDT SUITE FVC 2.47 L 02/20/2019 [facility] 1:52 PM CDT SUITE FET PRE 6.00 sec 02/20/2019 [facility] 1:52 PM CDT SUITE PEF PRE 6.09 L/s 02/20/2019 [facility] 1:52 PM CDT SUITE HFQ78-97% 1.30 L/s 02/20/2019 [facility] 1:52 PM CDT SUITE FRCPLETH 2.44 L 02/20/2019 [facility] 1:52 PM CDT SUITE RV 1.91 L 02/20/2019 [facility] 1:52 PM CDT SUITE TLC 4.40 L 02/20/2019 [facility] 1:52 PM CDT SUITE RV % TLC PRE 43.50 % 02/20/2019 [facility] 1:52 PM CDT SUITE VC PRE 2.49 L 02/20/2019 [facility] 1:52 PM CDT SUITE SUBSTANCE POST NaN 02/20/2019 [facility] 1:52 PM CDT SUITE DOSE POST NaN 02/20/2019 [facility] 1:52 PM CDT SUITE % PRED VC MAX 67.22 % 02/20/2019 [facility] 1:52 PM CDT SUITE FEV1% 65.60 % 02/20/2019 [facility] 1:52 PM CDT SUITE % PRED 98.14 % 02/20/2019 [facility] FEV1/FVC 1:52 PM CDT SUITE FVC% 66.39 % 02/20[facility] PM [facility]T SUITE % PRED PEF 80.62 % 02/20/2019 [facility] 1:52 PM CDT SUITE % PRED FEF 63.82 % 02/20/2019 [facility] 25-75% 1:52 PM CDT SUITE PRED VC MAX 3.72 L 02/20/2019 [facility] 1:52 PM CDT SUITE PRED FEV 1 2.78 L 02/20/2019 [facility] 1:52 PM CDT SUITE PRED FEV1/FVC 75.35 % 02/20/2019 [facility] 1:52 PM CDT SUITE PRED FVC 3.72 L 02/20/2019 [facility] 1:52 PM CDT SUITE PRED PEF 7.55 L/s 02/20/2019 [facility] 1:52 PM CDT SUITE PRED FEF 2.03 L/s 02/20/2019 [facility] 25-75% 1:52 PM CDT SUITE Specimen (Source) Anatomical Collection Method Collection Time Re ceived Time Location / / Volume Laterality 02/20/2019 12:08 PM CDT Narrative This result has an attachment that is no t available. Darwin Giles PFT ORDERABLES Performing Organization Address City/State/ZIP Code Phon e Number [facility] NA ECG 12 Lead (02/15/2019 8:59 AM CDT) P athologist Signature Ventricular Rate 89 BPM MUSE ECG/Min QRSD Interval 178 ms MUSE QT Interval 450 ms MUSE QTC Interval 547 ms MUSE R Newell -41 degrees MUSE T Wave [place] 93 degrees MUSE Specimen Anatomical Collection Method [...] characteri stics were determined by [facility] in a manner co nsistent with [...] Organization Address City/State/ZIP Code Phon e Number [facility] - [address] [place], [place] [address] [facility] (ABNORMAL) Urinalysis with Microscopic: Urine, Clean Catch (02/14/2019 10:57 AM CDT) [facility] gist Method Time Signature Source Midstream 02/14/2019 10:57 AM CDT Appearance Normal Normal 02/14/2019 11:27 AM CDT Osmolality, U 412 150 - 1150 02/14/2019 mOsm/kg 12:21 PM CDT pH, U 5.4 4.5 - 8.0 02/14/2019 12:21 PM CDT Comment: ----ADDITIONAL INFORMATION---- This test was developed and its performa nce characteristics determined by [facility] in a manner co nsistent with [...] Giles LAB URINE ORDERABLES Performing Organization Address [facility] Phon e Number [facility] - [address] [place] [phone] [facility] (ABNORMAL) Prothrombin Time (PT/INR) (02/14/2019 10:20 AM CDT) [facility] Method Time Signature Prothrombin 15.1 (H) 9.4 [...] Giles LAB BLOOD ADD-ON Performing Organization Address City/[facility] Phon e Number [facility] - [address] (ABNORMAL) Alkaline Phosphatase, Total and Isoenzymes (02/14/2019 10:20 AM CDT) [facility] Method Time Signature Alkaline 302 (H) 40 [...] CDT 10:41 AM CDT Narrative [facility] - 02/15/2019 12:05 PM CDT Specimen Information: Specimen ID: [id number] Specimen Type: Blood Specimen Collection Start Date: 02/15/20 10:20 AM Specimen Received Date: 02/14/2019 10:41 AM Specimen ID: [id number] Specimen Type: Blood Specimen Collection Start Date: 02/15/20 10:20 AM Specimen Received Date: 02/14/2019 11:22 AM Darwin RicoSBailey LAB BLOOD NON ADD-ON Performing Organization Address City/[facility] Phon e Number [facility] - [address] (ABNORMAL) PTH (Parathyroid Hormone) (02/14/2019 10:20 [...] RicoS. LAB BLOOD ADD-ON Performing Organization Address City/[facility] Phon e Number [facility] - [address] 25-Hydroxyvitamin D2 and D3 (02/14/2019 10:20 [...] performa nce characteristics determined by [facility] in a manner consistent with CLIA requirements. This test has not been cleared or approved by the [place] d and Drug Administration. Specimen Anatomical Collection Method Collection Time Receive d Time (Source) Location / / Volume Laterality Blood (Blood, 02/14/2019 10:20 02/14/2019 1:36 Venous) AM CDT PM CDT Darwin RicoS. LAB BLOOD ADD-ON Performing Organization Address City/State/ZIP Code Phon e Number [facility] [address] [place] [phone] [facility] Uric Acid (02/14/2019 10:20 AM CDT) [...] Phon e Number [facility] - [address] [place], [place] [address] [facility] (ABNORMAL) CBC with Differential (02/14/2019 10:20 [...] Organization Address City/State/ZIP Code Phon e Number [facility] - [address] [place], [place] [address] [facility] (ABNORMAL) Renal Function Panel (02/14/2019 10:20 [...] >=60 02/14/2019 Black/ mL/min/BSA 12:03 PM CDT Surinamese Comment: ----ADDITIONAL INFORMATION---- Estimated GFR calculated using [...] Organization Address City/State/ZIP Code Phon e Number [facility] - [address] [place] [phone] [facility] DX Chest AP or PA and [...]
--- OUTSIDE RECORDS SUMMARY | 2022-07-22 11:04 | XMS_ITS | Encounter Summary ---
:1940 Author Organization [facility] Address [address] [place] [address] Care Team Providers Name Role Phone Unavailable [...] How often do you attend gnosticist or zoroastrian More than 4 time s [...] or slept in a fdc (including now)? Sex Assigned at Date Recorded Male 04/11/2022 12:05 PM CDT documented as of this encounter Plan of Treatment Upcoming Encounters Date Type Specialty Care Team Description 09/01/2022 Appointment Gastroenterology and Hepatology Lyric Coe M.D. [address] [place] [phone] (Wo rk) 09/01/2022 Appointment Gastroenterology and Hepatology Maurice Herrera M.D., Ph.D. [address] [place] [address] [phone] (Wo rk) 09/02/2022 Appointment Gastroenterology and Hepatology Maurice Herrera M.D., Ph.D. [address] [place] [address] [phone] (Wo rk) documented as of this encounter Procedures Procedure Name Priority Date/Time Associated Comments Diagnosis US RETROPERITONEUM Routine 06/24/2002 9:19 Result s for this LIMITED PLUS AM [employer]URNACE [employer] G[employer] procedure are i n RETROPERITONEUM LIMITED the results DOPPLER section. DX OUTSIDE IMAGE Routine 06/24/2002 6:38 Results for this INTERPRETATION AM [employer]NACE [employer] procedure are in the results section. DX CHEST POST PICC Routine 06/21/2002 10:13 Resul ts for this PLACEMENT 1 VIEW PM [employer]NACE [employer] procedure a re in the results section. DX CHEST POST PICC Routine 06/21/2002 6:11 Result s for this PLACEMENT 1 VIEW PM [employer]NA[employer] G[employer] procedure a re in the results section. HXGENERAL PATHOLOGY Routine 06/21/2002 4:19 Resul ts for this REPORT PM [employer]NA[employer] procedure are i n the results section. ECG Routine 06/21/2002 10:38 Results for this AM [employer]NACE [employer] procedure are i n the results section. CT ORBITS AND SELLA Routine 06/21/2002 8:27 Resul ts for this WITHOUT IV CONTRAST AM [employer]NACE [employer] procedur e are in the results section. ECHOCARDIOGRAM Routine 06/20/2002 8:35 AM [employer]NACE [employer] G[employer] DX OUTSIDE IMAGE Routine 06/20/2002 6:32 Results for this INTERPRETATION AM [employer]NACE [employer] procedure are in the results section. HXGENERAL PATHOLOGY Routine 06/19/2002 10:26 Resu lts for this REPORT AM [employer]NACE [employer] procedure are i n the results section. HXPHYS SURG BLD ORDER Routine 06/18/2002 10:00 Re sults for this PM [employer]NACE [employer] procedure are i n the results section. US ABDOMEN COMPLETE Routine 06/18/2002 9:39 Resul ts for this AM [employer] procedure are i n the results section. MR CERVICAL AND THORACIC Routine 06/18/2002 8:24 Results for this WITHOUT AND WITH IV AM FURNACE [employer] G[employer] procedur e are in CONTRAST the results section. ECG Routine 06/16/2002 9:34 Results for this PM [employer]NACE [employer] procedure are i n the results section. DX CHEST AP OR PA AND Routine 06/16/2002 5:55 Res ults for this LATERAL 2 VIEWS PM [employer]NACE [employer] G[employer] procedure ar e in the results section. CT HEAD WITHOUT IV Routine 06/16/2002 4:28 Result s for this CONTRAST PM [employer]NACE O[employer] G[employer] procedure are i n the results section. documented in this encounter Results US Retroperitoneum Limited plus Retroperitoneum Limited Doppler (06/24/2002 9:19 AM F[employer]NACE [employer] G[employer]) Anatomical Region Laterality Modality Abdomen, Pelvis N/A Ultrasound Specimen (Source) Anatomical Collection Method Collection Time Re ceived Time Location / / Volume Laterality 06/24/2002 9:19 AM [employer]NACE [employer] GAS Narrative 06/24/2002 11:05 AM F[employer]NACE OPER[employer]IL OR GAS 24-Jun-2002 09:19:00 ??Exam: US Retro Lmtd w Doppler Lmtd Indications: INSUFFICIENCY^[id number] ORIGINAL REPORT - 24-Jun-2002 11:05:00 The [...] Electronically signed by: ?? Aiden Lafleur MD [id number] ([id number]) 24-Jun-20 02 11:05 Procedure Note Provider, Historical - 11/24/2017Formatt ing of this note might be different from the original. 24-Jun-2002 09:19:00 Exam: US Retro Lmtd w Doppler Lmtd Indications: INSUFFICIENCY^[id number] ORIGINAL REPORT - 24-Jun-2002 11:05:00 The [...] Dia.210 Electronically signed by: Aiden Lafleur MD [id number] ([id number]) 24-Jun-20 02 11:05 Jamal Camejo M.D. IMMike US PROCEDURES DX Outside Image Interpretation (06/24/2002 6:38 AM FURNACE OPER[employer] G[employer]) Anatomical Region Laterality Modality N/A Radiographic Imaging Specimen (Source) Anatomical Collection Method Collection Time Re ceived Time Location / / Volume Laterality 06/24/2002 6:38 AM F[employer]NACE [employer]PER[employer] GAS Narrative 06/24/2002 9:30 AM F[employer]NACE [employer]PER[employer] GAS 24-Jun-2002 06:38:00 ??Exam: Interp of OUTSIDE X-RAY [...] ??(362) Electronically signed by: ?? Sena Tsang ??8-24-Jun-2002 0 9:30 Procedure Note Peng Santiago M.D., [...] the kidneys on the submitted images. (06-24-02) (066) Electronically signed by: Sena Tsang [phone] 24-Jun-2002 09: 30 Zeb Cotton M.D. IMG DIAGNOSTIC IMAGING PROCE DURES DX Chest Post PICC Placement 1 View (06/21/2002 10:13 PM F[employer]NACE OPER[employer] G[employer]) Anatomical Region Laterality Modality Chest N/A Radiographic Imaging Specimen (Source) Anatomical Collection Method Collection Time Re ceived Time Location / / Volume Laterality 06/21/2002 10:13 PM F[employer]NACE OPER[employer]IL OR GAS Narrative 06/22/2002 8:19 AM F[employer]NACE [employer]IL OR GAS 21-Jun-2002 22:13:00 ??Exam: Chest-PICC Indications: Right PICC Tip Placement ORIGINAL REPORT - 21-Jun-2002 22:45:00 Right PICC tip in the proximal right sub clavian vein. Electronically signed by: ?? Jossy Valdes MD [phone] ([id number]) 21-Jun-20 02 22:45 I have reviewed the films/images and agr ee with the above interpretation. Electronically signed by: ?? Cinthya.Pablo. ??Martha MOISE. ??[phone] 22-Jun-2002 0 8:19 Procedure Note Leroy Thomas M.D. - 11/24/2017Formatt ing of this note might be different from the original. 21-Jun-2002 22:13:00 Exam: Chest-PICC Indications: Right PICC Tip Placement ORIGINAL REPORT - 21-Jun-2002 22:45:00 Right PICC tip in the proximal right sub clavian vein. Electronically signed by: Jossy Valdes MD [id number] [id number]) 21-Jun-20 02 22:45 I have reviewed the films/images and agr ee with the above interpretation. Electronically signed by: Miki Thomas MD. [phone] 22-Jun-2002 08:19 Jamal Camejo M.D. IMMike DIAGNOSTIC IMAGING PROCE DURES DX Chest Post PICC Placement 1 View (06/21/2002 6:11 PM FURNACE OPER[employer]IL [employer] GAS) Anatomical Region Laterality Modality Chest N/A Radiographic Imaging Specimen (Source) Anatomical Collection Method Collection Time Re ceived Time Location / / Volume Laterality 06/21/2002 6:11 PM FURNACE OPERATOR [employer]IL OR GAS Narrative 06/22/2002 12:05 PM FURNACE OPERATOR [employer]IL OR GAS 21-Jun-2002 18:11:00 ??Exam: Chest-PICC Indications: RIGHT PICC [...] Hx general Pathology Report (06/21/2002 4:19 PM FURNACE OPERATOR [employer]IL [employer] GAS) Specimen Anatomical Collection Method Collection Time Receive d Time (Source) Location / / Volume Laterality 06/21/2002 4:19 PM 2 4:19 FURNACE OPERATOR [employer]IL OR GAS PM FURNACE OPERATOR [employer]IL OR GAS Narrative [facility] - 06/21/2002 4:19 PM FURNACE OPERATOR [employer]IL OR GAS 21Jun2002 General Biopsy Primary Physician: ?Cheng navarro Jr., M.D. ?([id number]) Requested By: ? Florentin lindquist M.D. ?? TISSUE DESCRIPTION: ?? A1. Bulb/second portion duodenum sma ll bowel - (5 pieces 0.2 - 0.3 cm. in diameter). B1. Lower ?? third esophagus - (4 pieces 0.1 - 0. 2 cm. in diameter). ?? [id number] A1, B1 ?? DIAGNOSIS: ?? A) Small [...] Biopsy Primary Physician: Jr Bailey Reyes M.D. ([id number]) Requested By: Florentin West M.D. TISSUE DESCRIPTION: A1. Bulb/second portion duodenum small bowel - (5 pieces 0.2 - 0.3 cm. in diameter). B1. Lower third esophagus - (4 pieces 0.1 - 0.2 c m. in diameter). [id number] A1, B1 DIAGNOSIS: A) Small bowel, duodenum, bulb and seco nd portion mass, endoscopic biopsy: Heterotopic gastric fundic-type mucosa. B) Esophagus, distal, endoscopic biopsy : Luminal fibrinoinflammatory exudate consistent with nearby ulcer/erosion site, and hyperpla stic cardiac-type mucosa. No fungi (GMS stain) or viral inclusions are identified. 24Jun2002 Rahel Woo M.D.:[facility] Florentin Giles M.D. LAB PATHOLOGY/CYTOLOGY ORDERABLES Performing Organization Address City/State/ZIP Code Phon e Number [facility] - [address] [place], [place] [address] [facility] ECG 12 Lead (06/21/2002 10:38 AM FURNACE OPERATOR OIL OR GAS) Specimen (Source) Anatomical Collection Method Collection Time Re ceived Time Location / / Volume Laterality 06/21/2002 10:38 AM FURNACE OPERATOR OIL OR GAS [facility] RADIOLOGY SYSTEM - 06/21/2002 10:59 AM FURNACE OPERATOR OIL OR GAS 21Jun2002 10:38 VENTRICULAR RATE 64 Normal sinus rhythm Leftward axis When compared with ECG of 16-JUN-2002 21 :34, No significant change was found [id number]^EVERT ??^JONATHAN Procedure Note Jonathan Darden M.D. - 11/13/2017Formatt ing of this note might be different from the original. 21Jun2002 10:38 VENTRICULAR RATE 64 Normal sinus rhythm Leftward axis When compared with ECG of 16-JUN-2002 21 :34, No significant change was found [id number]^EVERT MOISE^JONATHAN Historical Provider ECG ORDERABLES Performing Organization Address City/State/ZIP Code Phon e Number HX [facility] RADIOLOGY SYSTEM [address] [place] [address], [address] Orbits and Sella without IV Contrast (06/21/2002 8:27 AM [facility]) Anatomical Region Laterality Modality Head N/A Computed Tomography Specimen (Source) Anatomical Collection Method Collection Time Re ceived Time Location / / Volume Laterality 06/21/2002 8:27 AM FURNACE OPERATOR [employer]IL OR GAS Narrative 06/21/2002 11:48 AM FURNACE OPERATOR OIL OR GAS 21-Jun-2002 08:27:00 ??Exam: CT PF/Sella/Orbit wo Indications: [...] Dia.450 Electronically signed by: Rubi Umanzor MD. [phone] 21-Jun-2002 11:48 Zeb Cotton M.D. IMG CT PROCEDURES Echocardiogram (06/20/2002 8:35 AM FURNACE OPERATOR [employer]IL OR GAS) Anatomical Region Laterality Modality Echocardiography Specimen (Source) Anatomical Collection Method Collection Time Re ceived Time Location / / Volume Laterality 06/20/2002 8:35 AM FURNACE OPERATOR [employer]IL OR GAS Historical Provider CV ECHO PROCEDURES DX Outside Image Interpretation (06/20/2002 6:32 AM FURNACE OPERATOR [employer]IL OR GAS) Anatomical Region Laterality Modality N/A Radiographic Imaging Specimen (Source) Anatomical Collection Method Collection Time Re ceived Time Location / / Volume Laterality 06/20/2002 6:32 AM FURNACE OPERATOR OIL OR GAS Narrative 06/24/2002 10:40 AM FURNACE OPERATOR OIL OR GAS 20-Jun-2002 06:32:00 ??Exam: Interp of OUTSIDE X-RAY [...] (06-24-02) (362) Electronically signed by: Sena Tsang 8-24-Jun-2002 10: 40 Historical Provider IMG DIAGNOSTIC IMAGING PROCE SUKUMAR Carter general Pathology Report (06/19/2002 10:26 AM FURNACE OPERATOR OIL OR GAS) Specimen Anatomical Collection Method Collection Time Receive d Time (Source) Location / / Volume Laterality 06/19/2002 10:26 06/19/2002 AM FURNACE OPERATOR OIL OR GAS 10:26 AM FURNACE OPERATOR OIL OR GAS Narrative [facility] - 06/19/2002 10:26 AM FURNACE OPERATOR OIL OR GAS [id number] Surgical Pathology Requested By: ? Zeb Cotton M.D. ?([id number]) ? Melecio Alfaro M.D. ?? TISSUE DESCRIPTION: ?? Tissue from brain (right frontal reg ion--2.0 x 2.0 x 0.3 cm in aggregate and 4.0 x 3.0 x 1.0 ?? cm in aggregate) ?? [id number] A1, A2, A3, A4, A5, A6 ?? [...] Pathology Requested By: Zeb Cotton M.D. ( [id number]) Melecio Alfaro M.D. TISSUE DESCRIPTION: Tissue from brain (right frontal region --2.0 x 2.0 x 0.3 cm in aggregate and 4.0 x 3.0 x 1.0 cm in aggregate) [id number] A1, A2, A3, A4, A5, A6 DIAGNOSIS: Brain, right frontal, biopsy: Organizin g bacterial abscess. Gram stain demonstrates coccal organisms. Stains for fungi are negativ e. Stains for mycobacteria (auramine rhodamine) show rare bacilli that may represent contami nants. 21Jun2002 Zuleyma Millard M.D.:mirela PRELIMINARY FROZEN SECTION CONSULTATION : Organizing abscess. Hold over. Zeb Cotton M.D. LAB PATHOLOGY/CYTOLOGY ORDER SHON Performing Organization Address City/State/ZIP Code Phon e Number [facility] - [address] [place], [place] [address] [facility] HX phys Surg Bld Order (06/18/2002 10:00 PM FURNACE OPERATOR OIL OR GAS) Specimen Anatomical Collection Method Collection Time Receive d Time (Source) Location / / Volume Laterality 06/18/2002 10:00 06/18/2002 PM FURNACE OPERATOR OIL OR GAS 10:55 PM FURNACE OPERATOR OIL OR GAS Narrative [facility] - 06/18/2002 10:00 PM FURNACE OPERATOR OIL OR GAS 18 Jun 2002 ?[id number] ? Ro ?22:00 ?? Phys Surg Bld Order: ?ABO/RH ? O POS ?Antibody Screen ?N eg ? Procedure Note 12/06/2017 18 Jun 2002 [id number] Ro 22:00 Phys Surg Bld Order: ABO/RH O POS Antibody Screen Neg Historical Provider LAB HISTORICAL ORDERS Performing Organization Address City/State/ZIP Code Phon e Number [facility] - [address] [place], [place] [address] [facility] US Abdomen Complete (06/18/2002 9:39 AM FURNACE OPERATOR [employer]IL OR GAS) Anatomical Region Laterality Modality Abdomen N/A Ultrasound Specimen (Source) Anatomical Collection Method Collection Time Re ceived Time Location / / Volume Laterality 06/18/2002 9:39 AM FURNACE OPERATOR [employer]IL OR GAS Narrative 06/18/2002 12:23 PM FURNACE OPERATOR OIL OR GAS 18-Jun-2002 09:39:00 ??Exam: US Abdomen Complete Indications: r/o metastases^[id number] ?? do2 -300 ORIGINAL REPORT - 18-Jun-2002 [...] left measuring 10.4cm and the right 10.2cm nvgn-[id number]. Normal caliber abdo deion aorta. Examination is otherwise negative. ?? ELECTRONIC IMAGES ONLY--NO FILMS Ind: [id number] ?? Dia.120 ?? Electronically signed by: ?? Arvin Bland M.D. [phone] ([id number]) 18-Jun-20 02 12:23 Procedure Note Chava Bland M.D. - 11/24/2017Formatti ng of this note might be different from the original. 18-Jun-2002 09:39:00 Exam: US Abdomen Co mplete Indications: r/o metastases^[id number] do2-30 0 ORIGINAL REPORT - 18-Jun-2002 12:23:00 [...] left measuring 10.4cm and the right 10.2cm zefm-rb-uong. Normal caliber abdominal aorta. Examination is otherwise negative. ELECTRONIC IMAGES ONLY--NO FILMS Ind: 771.705 Dia.120 Electronically signed by: Arvin Bland M.D. [id number] ([id number]) 18-Jun-20 02 12:23 Rell Raza M.D. IMG US PROCEDURES MR Cervical And Thoracic Without And With Iv Contrast (06/18/2002 8:24 AM FURNACE OPERATOR OIL OR GAS) Anatomical Region Laterality Modality Magnetic Resonance Specimen (Source) Anatomical Collection Method Collection Time Re ceived Time Location / / Volume Laterality 06/18/2002 8:24 AM FURNACE OPERATOR OIL OR GAS Narrative 06/18/2002 10:14 AM FURNACE OPERATOR OIL OR GAS 18-Jun-2002 08:24:00 ??Exam: MRI CSP & THSP [...] Dia.357 Electronically signed by: Lizzette Varela M.D. [phone] 18-Jun-2002 10:14 Vivek Blue M.D. IMG MRI PROCEDURES ECG 12 Lead (06/16/2002 9:34 PM FURNACE OPERATOR OIL OR GAS) Specimen (Source) Anatomical Collection Method Collection Time Re ceived Time Location / / Volume Laterality 06/16/2002 9:34 PM [facility] RADIOLOGY SYSTEM - 06/17/2002 5:48 AM [facility] 16Jun2002 21:34 VENTRICULAR RATE 61 Normal sinus rhythm Left axis deviation No previous ECGs available [id number]^ALVERTO ??^ACE Procedure Note Ace Ragland M.D. - 11/13/2017Forma tting of this note might be different from the original. 16Jun2002 21:34 VENTRICULAR RATE 61 Normal sinus rhythm Left axis deviation No previous ECGs available [id number]^ALVERTO MOISE^ACE Historical Provider ECG ORDERABLES Performing Organization Address City/State/ZIP Code Phon e Number [facility]X [facility] RADIOLOGY [facility] [address] [place] [address], U SA DX Chest AP or PA and Lateral 2 Views (06/16/2002 5:55 PM FURNACE OPERATOR OIL OR GAS) Anatomical Region Laterality Modality Chest N/A Radiographic Imaging Specimen (Source) Anatomical Collection Method Collection Time Re ceived Time Location / / Volume Laterality 06/16/2002 5:55 PM [facility] Narrative 06/17/2002 2:58 PM [facility] 16-Jun-2002 17:55:00 ??Exam: Chest-- 2 Views Indications: HERB ORIGINAL REPORT - 16-Jun-2002 18:18:00 Tiny amount of fluid or pleural thickeni ng left base. Calcified granuloma right upper lung. Electronically signed by: ?? Alcira Raya MD 16-Jun-2002 18:18 I have reviewed the films/images and agr ee with the above interpretation. Electronically signed by: ?? Lesly ??King JOSE MARIA. ?? [id number] 17-Jun-2002 14 [...] Lesly Gomez MD. [id number] 17-Jun-2002 14:58 Lizz BAKER DIAGNOSTIC IMAGING PROCE [facility] CT Head without IV Contrast (06/16/2002 4:28 PM FURNACE OPERATOR OIL OR GAS) Anatomical Region Laterality Modality Head N/A Computed Tomography Specimen (Source) Anatomical Collection Method Collection Time Re ceived Time Location / / Volume Laterality 06/16/2002 4:28 PM FURNACE OPERATOR OIL OR GAS Narrative 06/17/2002 9:16 AM FURNACE OPERATOR OIL OR GAS 16-Jun-2002 16:28:00 ??Exam: CT Head wo Indications: [...]
--- OUTSIDE RECORDS SUMMARY | 2022-07-22 11:04 | XMS_ITS | Encounter Summary ---
:1940 Author Organization [facility] Address [address] [place] [address] Care Team Providers Name Role Phone Unavailable [...] How often do you attend voodoo or rastafari More than 4 time s [...] Gastroenterology and Hepatology Lyric Coe M.D. [address] [place] [phone] (Wo rk) 09/01/2022 Appointment Gastroenterology and Hepatology Maurice Herrera M.D., Ph.D. [address] [place] [address] [phone] (Wo rk) 09/02/2022 Appointment Gastroenterology and Hepatology Maurice Herrera M.D., Ph.D. [address] [place] [phone] (Wo rk) documented as of this encounter Visit Diagnoses Not on filedocumented in this encounter
--- OUTSIDE RECORDS SUMMARY | 2022-07-22 11:04 | XMS_ITS | Clinical Summary ---
:1940 Author Organization [facility] Address [address] [place] [address] Phone Care Team Providers Name Role Phone Harish Silver MD Primary Care Provider Encounters Date Type Specialty Care Team Description 06/22/2022 Orders Only Nephrology Sebastian Charles MD 06/22/2022 Treatment Sebastian Charles MD 06/01/2022 Orders Only NephSebastian Pandey MD 06/01/2022 Treatment Sebastian Charles MD 05/11/2022 Orders Only NephSebastian Pandey MD 05/04/2022 Orders Only NephSebastian Pandey MD 05/04/2022 Treatment Sebastian Charles MD 04/22/2022 Orders Only NephSebastian Pandey MD from Last [...] Associated Diagnosis Comme nts TRACE ELEMENTS Routine 06/22/2022 Results for t his procedure are i n the results section . CHEMISTRY Routine 06/22/2022 Results for thi s procedure are i n the results section . HEMATOLOGY Routine 06/22/2022 Results for thi s procedure are i [...] . from Last 3 Months Results (ABNORMAL) TRACE ELEMENTS (06/22/2022)Only the most recent of4 resultswithin the time period is included. P athologist Signature Aluminum 13 (H) 0 - 10 APS SPECTRA mcg/L [facility] Comment: This test was developed and its performa nce characteristics determined by [facility]. It has not been cleared or approved by the FDA. The laboratory is regulated under CLIA a s qualified to perform high complexity testing. This test is used fo r clinical purposes. It should not be regarded as investigational or fo r research. Test performed at [facility], [address] [place] [address]. Telephone . Medical Direct or: Steve Younger MD. Specimen (Source) Anatomical Collection Method Collection Time Re ceived Time Location / / Volume Laterality 06/22/2022 06/24/2022 10:2 2 AM CDT Narrative APS SPECTRA [facility] - 06/24/2022 Unless otherwise specified, test(s) performed at: [facility], [address] [place] [address], [place] [address] [employer]ARY SCHOOL REGISTRAR: Dariel Doyle M.D., Ph.D For any questions, please call customer service at FREQUENCY:MONTHLY Resulting Agency Comment Specimen source: Serum Sebastian Charles MD LAB BLOOD ORDERABLES Performing Organization Address City/State/ZIP Code Phon e Number APS SPECTRA [facility] (ABNORMAL) HEMATOLOGY (06/22/2022)Only the most recent of4 resultswithin the time period is included. Patholo gist Method Time Signature WBC 4.67 (L) 4.80 - [facility] 10.80 [facility] 1000/mcL RBC 3.49 (L) 4.70 - [facility]RA 6.10 [facility] mill/mcL Hemoglobin 11.1 (L) 14.0 - [facility] 18.0 g/dL [facility] Hemoglobin x 3 33.3 (L) 42.0 - [facility] 54.0 % [facility] Hematocrit 34.1 (L) 42.0 - [facility] 52.0 % [facility] MCV 98 80 - 100 [facility] fl [facility] MCH 31.8 (H) 27.0 - [facility] 31.0 pg [facility] MCHC 32.5 30.0 - [facility] 36.0 g/dL [facility] RDW 14.8 (H) 11.5 - [facility] 14.5 % [facility] Neutrophils 72.6 40.0 - [facility] 75.0 % [facility] Lymphocytes 9.7 (L) 19.0 - [facility] Relative 48.0 % [facility] Monocytes 6.6 3.0 - 10.0 APS [facility]PECT[facility] % [facility] Eosinophils 9.1 (H) 0.0 - 7.0 [facility] Relative % [facility] Basophils 0.6 0.0 - 1.5 APS [facility]PECT[facility] Relative % [facility] JUAN ANTONIO 1.5 0.0 - 4.0 APS SPECTRA % [facility] Specimen (Source) Anatomical Collection Method Collection Time Re ceived Time Location / / Volume Laterality 06/22/2022 06/23/2022 2:46 AM CDT Narrative APS SPECTRA [facility] - 06/23/2022 Unless otherwise specified, test(s) performed at: [facility], [address] [place] [address], [place] [address] [employer]ARY SCHOOL REGISTRAR: Dariel Doyle M.D., Ph.D For any questions, please call customer service at FREQUENCY:MONTHLY Resulting Agency Comment Specimen source: Blood Sebastian Charles MD LAB BLOOD ORDERABLES Performing Organization Address City/State/ZIP Code Phon e Number APS SPECTRA [facility] (ABNORMAL) [facility]rae Chemistry (06/22/2022)Only the most recent of4 resultswithin the time period is included. [facility] gist Method Time Signature BUN 33 (H) 6 - 19 APS SPECTRA mg/dL [facility] Creatinine 3.30 (H) 0.60 - APS SPECTRA 1.30 mg/dL [facility] BUN/Creatinine 10.0 10.0 - APS SPECTRA Ratio 20.0 [facility] Sodium 142 136 - 145 APS [facility]RA mEq/L [facility] Potassium 3.9 3.5 - 5.1 APS [facility]RA mEq/L [facility] Chloride 104 96 - 108 APS [facility]PECTRA mEq/L [facility] Bicarbonate 30 20 - 31 APS SPECTRA (CO2) mEq/L [facility] Calcium 8.9 8.7 - 10.4 APS SPECTRA mg/dL [facility] Comment: Please note change in reference range. Corrected Calcium 9.6 8.7 - 10.4 mg/dL APS S PECTRA [facility] Comment: Corrected Calcium is not equivalent to m easured Ionized Calcium. Phosphorus 3.5 2.6 - 4.5 mg/dL APS SPECTRA [facility] Calcium Phosphorus Product 31 0 - 54 APS SPECTRA [facility] Calcium Phosporus Product, Cor 34 0 - 54 APS SPECTRA [facility] Albumin 3.1 (L) 3.5 - 5.2 g/dL [facility] Iron 29 (L) 45 - 160 mcg/dL APS SPECT[facility] UIBC 225 155 - 355 mcg/dL APS SPECTRA [facility] TIBC 254 185 - 515 mcg/dL APS SPECTRA [facility] Iron Saturation (TSat) 11 (L) 20 - 55 % APS SPE CTRA [facility] Specimen (Source) Anatomical Collection Method Collection Time Re ceived Time Location / / Volume Laterality 06/22/2022 06/23/2022 2:42 AM CDT Narrative APS SPECTRA [facility] - 06/23/2022 Unless otherwise specified, test(s) performed at: [facility] [place] [address] [employer] SCHOOL REGISTRAR: Dariel Doyle M.D., Ph.D For any questions, [...] have been corrected fo r glucose interference. [facility] glucose correction factor f or creatinine is [...] period is included. athologist Signature Kt/V, Residual 2.51 [facility]PS S[facility] Creat Clear, 206 L/wk APS SPECTRA Urine Nor Wkly [facility] Specimen (Source) Anatomical Collection Method Collection Time Re ceived Time Location / / Volume Laterality 04/22/2022 04/23/2022 4:41 AM CDT Narrative APS SPECTRA [facility] - 04/23/2022 Unless otherwise specified, test(s) performed at: [facility], [address] [place] [address], [place] [address] [employer] REGISTRAR: Dariel Doyle M.D., Ph.D For any questions, [...] Volume 42.6 L APS SPECTRA Distribution [facility] ([place]) Specimen (Source) Anatomical Collection Method Collection Time Re ceived Time Location / / Volume Laterality 04/22/2022 04/23/2022 8:15 AM CDT Narrative APS SPECTRA [facility] - 04/23/2022 Unless otherwise specified, test(s) performed at: [facility], [address] [place] [address] [employer] S[employer]OL REGISTRAR: Darile Doyle M.D., Ph.D For any questions, please call customer service at FREQUENCY:MONTHLY Resulting Agency Comment Specimen source: PD Fluid Sebastian Charles MD LAB BLOOD ORDERABLES Performing Organization Address City/State/ZIP Code Phon e Number APS SPECTRA [facility] from Last 3 Months Insurance Payer Benefit Plan / Subscriber ID Effective Dates Phone Addre ss Type Group [facility] MEDICARE AAR MEDICARE [id number] 2021-Presen [phone] [address] [address] COMPLETE t 0 [facility] ([id number]) [place] [address] Care Teams Channel Supervisor Relationship Specialty Start Date End Date Harish Silver MD PCP - General 05/17/19 [address] [place] [address]
--- OUTSIDE RECORDS SUMMARY | 2022-07-22 11:04 | XMS_ITS | Encounter Summary ---
:1940 Author Organization [facility] Address [address] [place] [address] Care Team Providers Name Role Phone Harish Silver MD Primary Care Provider Encounter Details Date Type Department Care Team Description 06/22/2022 Orders Only [facility] Sebastian Mohan MD [phone] [place] [address] [place], [place] [phone] (Wo rk) Social History Tobacco Use [...] 06/22/2022 Results for t his procedure are in the resu lts section. HEMATOLOGY Routine 06/22/2022 Results for thi s procedure are in the resu lts section. CHEMISTRY Routine 06/22/2022 Results for thi s procedure are in the resu lts section. documented in this encounter Results (ABNORMAL) TRACE ELEMENTS (06/22/2022) P athologist Signature Aluminum 13 (H) 0 - 10 APS [facility]PECTRA mcg/L [facility] Comment: This test was developed and its performa nce characteristics determined by [facility]. It has not been cleared or approved by the FDA. The laboratory is regulated under CLIA a s qualified to perform high complexity testing. This test is used fo r clinical purposes. It should not be regarded as investigational or fo r research. Test performed at [facility], [address] [place] [address]. Telephone . Medical Direct or: Steve Younger MD. Specimen (Source) Anatomical Collection Method Collection Time Re ceived Time Location / / Volume Laterality 06/22/2022 06/24/2022 10:2 2 AM CDT Narrative APS SPECTRA [facility] - 06/24/2022 Unless otherwise specified, test(s) performed at: [facility], [address] [place] [address], [place] [address] LEAD ATHLETE: Dariel Doyle M.D., Ph.D For any questions, please call customer service at FREQUENCY:MONTHLY Resulting Agency Comment Specimen source: Serum Sebastian Charles MD LAB BLOOD ORDERABLES Performing Organization Address City/State/ZIP Code Phon e Number APS SPECTRA [facility] (ABNORMAL) Spectrae Chemistry (06/22/2022) [facility] gist Method Time Signature BUN 33 (H) [...] 06/23/2022 Unless otherwise specified, test(s) performed at: [facility], [address] [place] [address], [place] [address] LEAD ATHLETE: Dariel Doyle M.D., Ph.D For any questions, please call customer service at FREQUENCY:MONTHLY Resulting Agency Comment Specimen source: Serum Sebastian Charles MD LAB BLOOD ORDERABLES Performing Organization Address City/State/ZIP Code Phon e Number APS SPECTRA [facility] (ABNORMAL) HEMATOLOGY (06/22/2022) [facility] gist Method Time Signature WBC 4.67 (L) [...] 06/23/2022 Unless otherwise specified, test(s) performed at: [facility], [address] [place] [address] [place] [address] LEAD ATHLETE: Dariel Doyle M.D., Ph.D For any questions, please call customer service at FREQUENCY:MONTHLY Resulting Agency Comment Specimen source: Blood Sebastian Charles MD LAB BLOOD ORDERABLES Performing Organization Address City/State/ZIP Code Phon e Number APS SPECTRA [facility] documented in this encounter Visit Diagnoses Not on filedocumented in this encounter Care Teams Nursing Home Assistant Relationship Specialty Start Date End Date Harish Silver MD PCP - General 05/17/19 [address] [place] [address] documented as of this encounter
--- OUTSIDE RECORDS SUMMARY | 2022-07-22 11:05 | XMS_ITS | Encounter Summary ---
:1940 Author Organization [facility] Address [address] [place] [address] Care Team Providers Name Role Phone Harish Silver MD Primary Care Provider Encounter Details Date Type Department Care Team Description 10/27/2021 Treatment [facility] Sebastian Jimenez MD [address] [place], [place] [phone] (Wo rk) Social History Tobacco Use Types [...] Name: David Castro : 1940 Chart #: [id number] Sex: M This patient was personally seen for a complete visit as part of routine monthly dialysis care. A review of the dialysis treatment, blood pressure, estimated dry weight, and recent lab values was made.These were discussed with the patient and staff as necessary. PURCHASING INTERNSHIP: Sebastian Charles MD LOCATION: [phone] SCHEDULE: No Routine Schedule Subjective 10/27/21: Georges [...] on filedocumented in this encounter Care Teams Mining Support Worker Relationship Specialty Start Date End Date Harish Silver MD PCP - General 05/17/19 [address] [place] [address] documented as of this encounter
--- OUTSIDE RECORDS SUMMARY | 2022-07-22 11:05 | XMS_ITS | Encounter Summary ---
:1940 Author Organization [facility] Address [address] [place] [address] Care Team Providers Name Role Phone Harish Silver MD Primary Care Provider Encounter Details Date Type Department Care Team Description 03/02/2022 Orders Only [facility] Sebastian Mohan MD [phone] [place] [address] [place], [place] [phone] (Wo rk) Social History Tobacco Use [...] 03/03/2022 Unless otherwise specified, test(s) performed at: [facility], [address] [place] [address], [place] [address] CONVEYOR INSTALLER: Dariel Doyle M.D., Ph.D For any questions, [...] MD LAB BLOOD ORDERABLES Performing Organization Address [facility] Code Phon e Number [...] 03/03/2022 Unless otherwise specified, test(s) performed at: [facility], [address] [place] [address], [place] [address] CONVEYOR INSTALLER: Dariel Doyle M.D., Ph.D For any questions, please call customer service at FREQUENCY:MONTHLY Resulting Agency Comment Specimen source: PD Fluid Sebastian Charles MD LAB BLOOD ORDERABLES Performing Organization Address City/[facility]/ZIP Code Phon e Number APS SPECTRA [facility] [...] have been corrected fo r glucose interference. [facility] glucose correction factor f or creatinine is [...] 03/03/2022 Unless otherwise specified, test(s) performed at: [facility], [address] [place] [address] [place] [address] CONVEYOR INSTALLER: Dariel Doyle M.D., Ph.D For any questions, [...] 03/03/2022 Unless otherwise specified, test(s) performed at: [facility], [address] [place] [address], [place] [address] CONVEYOR INSTALLER: Dariel Doyle M.D., Ph.D For any questions, [...] 03/03/2022 Unless otherwise specified, test(s) performed at: [facility], [address] [place] [address], [place] [address] CONVEYOR INSTALLER: Dariel Doyle M.D., Ph.D For any questions, please call customer service at FREQUENCY:MONTHLY Resulting Agency Comment Specimen source: Blood Sebastian Charles MD LAB BLOOD ORDERABLES Performing Organization Address City/[facility] Phon e Number APS SPECTRA [facility] (ABNORMAL) Spectrae Chemistry (03/02/2022) P athologist Signature PTH 263 (H) 16 - 80 APS SPECTRA pg/mL [facility] Specimen (Source) Anatomical Collection Method Collection Time Re ceived Time Location / / Volume Laterality 03/02/2022 03/03/2022 2:44 AM CDT Narrative APS SPECTRA [facility] - 03/03/2022 Unless otherwise specified, test(s) performed at: [facility], [address] [place] [address], [place] [address] CONVEYOR INSTALLER: Dariel Doyle M.D., Ph.D For any questions, please call customer service at FREQUENCY:MONTHLY Resulting Agency Comment Specimen source: Plasma Sebastian Charles MD LAB BLOOD ORDERABLES Performing Organization Address City/[facility] Phon e Number APS SPECTRA [...] 03/03/2022 Unless otherwise specified, test(s) performed at: [facility], [address] [place], [place] [address] [address] CONVEYOR INSTALLER: Dariel Doyle M.D., Ph.D For any questions, please call customer service at FREQUENCY:MONTHLY Resulting Agency Comment Specimen source: PD Fluid Sebastian Charles MD LAB BLOOD ORDERABLES Performing Organization Address City/State/ZIP Code Phon e Number APS SPECTRA [facility] documented in this encounter Visit Diagnoses Not on filedocumented in this encounter Care Teams Railroad Track Inspector Relationship Specialty Start Date End Date Harish Silver MD PCP - General 05/17/[address] [facility] [address] [place] [address] documented as of this encounter
--- OUTSIDE RECORDS SUMMARY | 2022-07-22 11:05 | XMS_ITS | Encounter Summary ---
:1940 Author Organization [facility] Address [address] [place] [address] Care Team Providers Name Role Phone Harish Silver MD Primary Care Provider Encounter Details Date Type Department Care Team Description 01/12/2022 Orders Only [facility] Sebastian Mohan MD [phone] [place] [address] [place], [place] [phone] (Wo rk) Social History Tobacco Use [...] 01/13/2022 Unless otherwise specified, test(s) performed at: [facility], [address] [place] [address] FISCAL ACCOUNTING CLERK: Steve Younger M.D. For any questions, please call customer service at FREQUENCY:OTHER Resulting Agency Comment Specimen source: Blood Sebastian Charles MD LAB BLOOD ORDERABLES Performing Organization Address City/State/ZIP Code Phon e Number APS SPECTRA [facility] documented in this encounter Visit Diagnoses Not on filedocumented in this encounter Care Teams Top Frame Maker Relationship Specialty Start Date End Date Harish Silver MD PCP - General 05/17/19 [address] [place] [address] documented as of this encounter
--- OUTSIDE RECORDS SUMMARY | 2022-07-22 11:05 | XMS_ITS | Encounter Summary ---
:1940 Author Organization [facility] Address [address] [place] [address] Care Team Providers Name Role Phone Harish Silver MD Primary Care Provider Encounter Details Date Type Department Care Team Description 10/19/2021 Orders [facility] O f Sebastian Mohan MD [phone] [place] [address] [place], [place] [phone] (Wo rk) Social History Tobacco Use [...] Volume Laterality 10/19/2021 10/20/2021 12:2 2 PM SOAKING PITS SUPERVISOR Resulting Agency Comment Specimen source: Urine Sebastian [...] Volume Laterality 10/19/2021 10/20/2021 12:2 2 PM SOAKING PITS SUPERVISOR Narrative APS S[facility]RA [facility] - 10/20/2021 Unless otherwise specified, test(s) performed at: [facility], [address] [place] [address] GENERAL CAR SUPERVISOR YARD: Steve Younger M.D. For any questions, please [...] Volume Laterality 10/19/2021 10/20/2021 12:0 9 PM SOAKING PITS SUPERVISOR Resulting Agency Comment Specimen source: PD Fluid [...] Volume Laterality 10/19/2021 10/20/2021 12:0 9 PM SOAKING PITS SUPERVISOR Resulting Agency Comment Specimen source: PD Fluid Sebastian Charles MD LAB BLOOD ORDERABLES Performing Organization Address City/[facility]/ZIP Code Phon e Number APS SPECTRA [...] Volume Laterality 10/19/2021 10/20/2021 12:0 9 PM SOAKING PITS SUPERVISOR Resulting Agency Comment Specimen source: PD Fluid [...] Volume Laterality 10/19/2021 10/20/2021 12:0 9 PM SOAKING PITS SUPERVISOR Narrative [facility]PS [facility] - 10/20/2021 Unless otherwise specified, test(s) performed at: [facility], [address] [place] [id number] GENERAL CAR SUPERVISOR YARD: Steve Younger M.D. For any questions, please [...] Volume Laterality 10/19/2021 10/20/2021 12:1 5 PM SOAKING PITS SUPERVISOR Resulting Agency Comment Specimen source: PD Fluid Sebastian Charles MD LAB BLOOD ORDERABLES Performing Organization Address City/[facility]/ZIP Code Phon e Number APS SPECTRA [...] Volume Laterality 10/19/2021 10/20/2021 12:1 5 PM SOAKING PITS SUPERVISOR Resulting Agency Comment Specimen source: PD Fluid [...] Volume Laterality 10/19/2021 10/20/2021 12:1 5 PM SOAKING PITS SUPERVISOR Resulting Agency Comment Specimen source: PD Fluid Sebastian Charles MD LAB BLOOD ORDERABLES Performing Organization Address City/State/ZIP Code Phon e Number [facility] P.E.T. INTERPRETATION (10/19/2021) [facility] gist Method Time Signature Solute Average [...] 0 .82-1.03 ?? 0.43-0.24 ?? 0.25-0.12 ?? [phone] Average High ? 0.49-0.62 ?? 0.66- 0.81 ?? 0.54-0.44 ?? 0.37-0.26 ?? [phone] Average ?0.48 ?0.65 ?0.55 ?0.38 ?2368 Average Low ?0.34-0.47 ?? 0.50 -0.64 ?? 0.66-0.56 ?? 0.49-0.39 ?? [phone] Low ?0.23-0.33 ?? 0.34-0.49 ?? 0.78-0.67 ?? 0.61-0.50 ?? [phone] *Concetta GREY, Bridgette KD, Farooq R, Jovani [...] Volume Laterality 10/19/2021 10/20/2021 12:1 5 PM SOAKING PITS SUPERVISOR Narrative APS SPECTRA [facility] - 10/20/2021 Unless otherwise specified, test(s) performed at: [facility], [address] [place] [address] GENERAL CAR SUPERVISOR YARD: Steve Younger M.D. For any questions, please [...] have been corrected fo r glucose interference. [facility] glucose correction factor f or creatinine [...] Volume Laterality 10/19/2021 10/20/2021 11:5 9 AM SOAKING PITS SUPERVISOR Resulting Agency Comment Specimen source: PD Fluid [...] Volume Laterality 10/19/2021 10/20/2021 11:5 9 AM SOAKING PITS SUPERVISOR Narrative APS SPECTRA [facility] - 10/20/2021 Unless otherwise specified, test(s) performed at: [facility], [address] [place] [address] GENERAL CAR SUPERVISOR YARD: Steve Younger M.D. For any questions, please call customer service at FREQUENCY:MONTHLY Resulting Agency Comment Specimen source: PD Fluid Sebastian Charles MD LAB BODY FLUIDS AND STOOLS O RDERABLES Performing Organization Address City/[facility]/ZIP Code Phon e Number APS SPECTRA [...] Volume Laterality 10/19/2021 10/20/2021 12:1 9 PM SOAKING PITS SUPERVISOR Resulting Agency Comment Specimen source: PD Fluid Sebastian Charles MD LAB BLOOD ORDERABLES Performing Organization Address [facility] Code Phon e Number APS SPECTRA [...] Volume Laterality 10/19/2021 10/20/2021 12:1 9 PM SOAKING PITS SUPERVISOR Resulting Agency Comment Specimen source: PD Fluid Sebastian Charles MD LAB BLOOD ORDERABLES Performing Organization Address City/[facility] Code Phon e Number APS SPECTRA [...] Volume Laterality 10/19/2021 10/20/2021 12:1 9 PM SOAKING PITS SUPERVISOR Resulting Agency Comment Specimen source: PD Fluid [...] Volume Laterality 10/19/2021 10/20/2021 12:1 9 PM SOAKING PITS SUPERVISOR Narrative APS SPECTRA [facility] - 10/20/2021 Unless otherwise specified, test(s) performed at: [facility], [address] [place] [address] GENERAL CAR SUPERVISOR YARD: Steve Younger M.D. For any questions, please [...] / Volume Laterality 10/19/2021 10/20/2021 9:08 AM SOAKING PITS SUPERVISOR Narrative APS SPECTRA [facility] - 10/20/2021 Unless otherwise specified, test(s) performed at: [facility], [address] [place], [place] [id number] GENERAL CAR SUPERVISOR YARD: Steve Younger M.D. For any questions, please call customer service at FREQUENCY:MONTHLY Resulting Agency Comment Specimen source: Serum Sebastian Charles MD LAB BLOOD ORDERABLES Performing Organization Address City/[facility] Phon e Number APS SPECTRA [facility] PATIENT INFORMATION (10/19/2021) athologist [facility] Urea Volume 43.6 L APS SPECTRA Distribution [facility] (Zoraida) Specimen (Source) Anatomical Collection Method Collection Time Re ceived Time Location / / Volume Laterality 10/19/2021 10/20/2021 11:5 9 AM SOAKING PITS SUPERVISOR Narrative [facility]PS SPECTRA [facility] - 10/20/2021 Unless otherwise specified, test(s) performed at: [facility], [address] [place] [address] GENERAL CAR SUPERVISOR YARD: Steve Younger M.D. For any questions, please call customer service at FREQUENCY:MONTHLY Resulting Agency Comment Specimen source: PD Fluid Sebastian Charles MD LAB BLOOD ORDERABLES Performing Organization Address City/[facility]/ZIP [facility] Phon e Number [facility] S[facility]RA [facility] IMMUNO CHEMISTRY (10/19/2021) P athologist Signature Hep B Surface Negative Negative APS SPECTRA Ag [facility] Specimen (Source) Anatomical Collection Method Collection Time Re ceived Time Location / / Volume Laterality 10/19/2021 10/20/2021 9:08 AM SOAKING PITS SUPERVISOR Resulting Agency Comment Specimen source: Serum Sebastian Charles MD LAB BLOOD ORDERABLES Performing Organization Address City/[facility]/ZIP Code Phon e Number [facility]PS [facility]RA [facility] PATIENT INFORMATION (10/19/2021) P athologist Signature Patient BSA 1.94 sq. M. [facility] Comment: Normalized values are calculated using t he patient's actual BSA and normalized to the average BSA of 1.73m2. Specimen (Source) Anatomical Collection Method Collection Time Re ceived Time Location / / Volume Laterality 10/19/2021 10/20/2021 9:08 AM SOAKING PITS SUPERVISOR Narrative APS SPECTRA [facility] - 10/20/2021 Unless otherwise specified, test(s) performed at: [facility], [address] [place] [address] GENERAL CAR SUPERVISOR YARD: Steve Younger M.D. For any questions, please call customer service at FREQUENCY:MONTHLY Resulting Agency Comment Specimen source: PD Fluid Sebastian Charles MD LAB BLOOD ORDERABLES Performing Organization Address City/[facility] Phon e Number APS SPECTRA [facility] (ABNORMAL) HEMATOLOGY (10/19/2021) [facility] gist Method Time Signature WBC 7.38 [...] / Volume Laterality 10/19/2021 10/20/2021 8:46 AM SOAKING PITS SUPERVISOR Narrative APS SPECTRA [facility] - 10/20/2021 Unless otherwise specified, test(s) performed at: [facility], [address] [place], [place] [id number] GENERAL CAR SUPERVISOR YARD: Steve Younger M.D. For any questions, please call customer service at FREQUENCY:MONTHLY Resulting Agency Comment Specimen source: Blood Sebastian Charles MD LAB BLOOD ORDERABLES Performing Organization Address City/[facility] Phon e Number APS SPECTRA [facility] [...] 10/20/2021 Unless otherwise specified, test(s) performed at: [facility], [address] [place] [id number] GENERAL CAR SUPERVISOR YARD: Steve Younger M.D. For any questions, please call customer service at FREQUENCY:MONTHLY Resulting Agency Comment Specimen source: PD Fluid Sebastian Charles MD LAB BLOOD ORDERABLES Performing Organization Address City/[facility] Phon e Number APS SPECTRA [facility] documented in this encounter Visit Diagnoses Not on filedocumented in this encounter Care Teams Business Services Analyst Relationship Specialty Start Date End Date Harish Silver MD PCP - General 05/17/19 [address] [place] [address] documented as of this encounter
--- OUTSIDE RECORDS SUMMARY | 2022-07-22 11:05 | XMS_ITS | Encounter Summary ---
:1940 Author Organization [facility] Address [address] [place] [address] Care Team Providers Name Role Phone Harish Silver MD Primary Care Provider Encounter Details Date Type Department Care Team Description 05/11/2022 Orders Only [facility] O f Sebastian Mohan MD [phone] [place] [address] [place], [place] [phone] (Wo rk) Social History Tobacco Use [...] and its performa nce characteristics determined by [facility]. It has not been cleared or approved by the FDA. The laboratory is regulated under CLIA a s qualified to perform high complexity testing. This test is used fo r clinical purposes. It should not be regarded as investigational or fo r research. Test performed at [facility], [address] [place] [id number]. Telephone . Medical Direct or: Steve Younger MD. Specimen (Source) Anatomical Collection Method Collection Time Re ceived Time Location / / Volume Laterality 05/11/2022 05/14/2022 9:53 AM CDT Narrative APS SPECTRA [facility] - 05/14/2022 Unless otherwise specified, test(s) performed at: [facility], [address] [place] [address], [place] [address] DELIVERY DRIVER ASSISTANT: Dariel Doyle M.D., Ph.D For any questions, please call customer service at FREQUENCY:OTHER Resulting Agency Comment Specimen source: Serum Sebastian Charles MD LAB BLOOD ORDERABLES Performing Organization Address City/[facility] Code Phon e Number APS [...] 05/12/2022 Unless otherwise specified, test(s) performed at: [facility], [address] [place] [address], [place] [address] DELIVERY DRIVER ASSISTANT: Dariel Doyle M.D., Ph.D For any questions, please call customer service at FREQUENCY:OTHER Resulting Agency Comment Specimen source: Blood Sebastian Charles MD LAB BLOOD ORDERABLES Performing Organization Address City/[facility] Phon e Number APS SPECTRA [facility] documented in this encounter Visit Diagnoses Not on filedocumented in this encounter Care Teams Recreational Resort Manager Relationship Specialty Start Date End Date Harish Silver MD PCP - General 05/17/[address] [place] [address] documented as of this encounter
--- OUTSIDE RECORDS SUMMARY | 2022-07-22 11:05 | XMS_ITS | Encounter Summary ---
:1940 Author Organization [facility] Address [address] [place] [address] Care Team Providers Name Role Phone Harish Silver MD Primary Care Provider Encounter Details Date Type Department Care Team Description 11/10/2021 Orders Only [facility] O f Sebastian Mohan MD [phone] [place] [address] [place], [place] [phone] (Wo rk) Social History Tobacco Use [...] 11/11/2021 Unless otherwise specified, test(s) performed at: [facility], [address] [place] [address] THREAD DRAWER: Steve Younger M.D. For any questions, please [...] have been corrected fo r glucose interference. [facility] glucose correction factor f or creatinine is [...] 11/11/2021 Unless otherwise specified, test(s) performed at: [facility], [address] [place], [place] [id number] THREAD DRAWER: Steve Younger M.D. For any questions, please [...] 11/11/2021 Unless otherwise specified, test(s) performed at: [facility], [address] [place] [address] THREAD DRAWER: Steve Younger M.D. For any questions, please call customer service at FREQUENCY:MONTHLY Resulting Agency Comment Specimen source: PD Fluid Sebastian Charles MD LAB BLOOD ORDERABLES Performing Organization Address City/[facility]/ZIP Code Phon e Number APS SPECTRA [...] 11/11/2021 Unless otherwise specified, test(s) performed at: [facility], [address] [place] [address] THREAD DRAWER: Steve Younger M.D. For any questions, please call customer service at FREQUENCY:MONTHLY Resulting Agency Comment Specimen source: Serum Sebastian Charles MD LAB BLOOD ORDERABLES Performing Organization Address City/[facility] Phon e Number APS SPECTRA [facility] PATIENT [...] 11/11/2021 Unless otherwise specified, test(s) performed at: [facility], [address] [place] [address] THREAD DRAWER: Steve Younger M.D. For any questions, please call customer service at FREQUENCY:MONTHLY Resulting Agency Comment Specimen source: PD Fluid Sebastian Charles MD LAB BLOOD ORDERABLES Performing Organization Address City/[facility] Phon e Number APS SPECTRA [facility] PATIENT [...] 11/11/2021 Unless otherwise specified, test(s) performed at: [facility], [address] [place] [address] THREAD DRAWER: Steve Younger M.D. For any questions, please call customer service at FREQUENCY:MONTHLY Resulting Agency Comment Specimen source: PD Fluid Sebastian Charles MD LAB BLOOD ORDERABLES Performing Organization Address City/State/ZIP Code Phon e Number APS SPECTRA [facility] documented in this encounter Visit Diagnoses Not on filedocumented in this encounter Care Teams Grounds Crew Supervisor Relationship Specialty Start Date End Date Harish Silver MD PCP - General 05/17/[address] [place] [address] documented as of this encounter
--- OUTSIDE RECORDS SUMMARY | 2022-07-22 11:05 | XMS_ITS | Encounter Summary ---
:1940 Author Organization [facility] Address [address] [place] [address] Care Team Providers Name Role Phone Harish Silver MD Primary Care Provider Encounter Details Date Type Department Care Team Description 12/22/2021 Treatment [facility] O Sebastian Jimenez MD [address] [address] [place], [place] [phone] (Wo rk) Social History Tobacco Use Types [...] Name: David Castro : 1940 Chart #: [id number] Sex: M This patient was personally seen for a complete visit as part of routine monthly dialysis care. A review of the dialysis treatment, blood pressure, estimated dry weight, and recent lab values was made.These were discussed with the patient and staff as necessary. CARTON MAKING MACHINE OPERATOR: Sebastian Charles MD LOCATION: [phone] SCHEDULE: No Routine Schedule Subjective 12/22/21: Georges was unfortunately hospitalized twice since our last visit. He went home and was very weak after I saw him last month on 12/01, went to ER and was admitted at [place] [place] from 12/02-12/08, had empyemaand chest tube was [...] Feeding tube was considered in hospital at [facility] but he declined. He is having liquid [...] fluid as this was not done at [facility] as it was thought to be [...] on filedocumented in this encounter Care Teams Toll Booth Operator Relationship Specialty Start Date End Date Harish Silver MD PCP - General 05/17/[address] [place] [address] documented as of this encounter
--- OUTSIDE RECORDS SUMMARY | 2022-07-22 11:05 | XMS_ITS | Encounter Summary ---
:1940 Author Organization [facility] Address [address] [place] [address] Care Team Providers Name Role Phone Harish Silver MD Primary Care Provider Encounter Details Date Type Department Care Team Description 06/01/2022 Treatment [facility] O Sebastian Jimenez MD [address] [place] [address] [place], [place] [phone] (Wo rk) Social History Tobacco Use Types [...] Name: David Castro : 1940 Chart #: [id number] Sex: M This patient was personally seen for a complete visit as part of routine monthly dialysis care. A review of the dialysis treatment, blood pressure, estimated dry weight, and recent lab values was made.These were discussed with the patient and staff as necessary. TORPEDO SHOOTER: Sebastian Charles MD LOCATION: [phone] SCHEDULE: No Routine Schedule Subjective Tolerating dialysis well. 06/01/22: He was hospitalized overnight at [facility] 05/13-05/14 with bleeding esophageal ulcer. HadEGD. Got [...] with PD. 05/04/22: Georges was hospitalized at [facility] , had coffee ground emesis and acute on chronic anemia, had EGD showing esophageal ulceration with clip placed and emesis stopped and no further bleeding occurred. BP lower than his usual with anemia, iron was very low and he got first of two feraheme infusions yesterday at [facility] and will have another on [...] HE walked 5 miles with >10,000 steps plrdji0ox already this morning. He has no orthopnea or SOB, wt is lower, dialysis is going very well, and he has his liquid diet figured out and is tolerating protein powder and liquicel. He has no concerns at all today and is very pleased since feeling much better after IV iron infusion at the [place] [facility] that we had arranged. 12/22/21: Georges was unfortunately hospitalized twice since our last visit. He went home and was very weak after I saw him last month on 12/01, went to ER and was admitted at [place] from 12/02-12/08, had empyemaand chest tube was [...] If needs iron, will give Feraheme at [facility] as this works best for him Nutritional [...] on filedocumented in this encounter Care Teams Crop Grain Or Livestock Farmer Relationship Specialty Start Date End Date Harish Silver MD PCP - General 05/17/19 [address] [place] [address] documented as of this encounter
--- OUTSIDE RECORDS SUMMARY | 2022-07-22 11:05 | XMS_ITS | Encounter Summary ---
:1940 Author Organization [facility] Address [address] [place] [address] Care Team Providers Name Role Phone Harish Silver MD Primary Care Provider Encounter Details Date Type Department Care Team Description 04/22/2022 Orders Only [facility] O f Sebastian Mohan MD [phone] [place] [address] [place], [place] [phone] (Wo rk) Social History Tobacco Use [...] and its performa nce characteristics determined by [facility]. It has not been cleared or approved by the FDA. The laboratory is regulated under CLIA a s qualified to perform high complexity testing. This test is used fo r clinical purposes. It should not be regarded as investigational or fo r research. Test performed at [facility], [address] [place] [address]. Telephone . Medical Direct or: Steve Younger MD. Specimen (Source) Anatomical Collection Method Collection Time Re ceived Time Location / / Volume Laterality 04/22/2022 04/26/2022 8:56 AM CDT Narrative APS SPECTRA [facility] - 04/26/2022 Unless otherwise specified, test(s) performed at: [facility], [address] [place] [address], [place] [address] [employer] ANALYST: Dariel Doyle M.D., Ph.D For any questions, [...] 04/23/2022 Unless otherwise specified, test(s) performed at: [facility], [address] [place] [address], [place] [address] [employer] ANALYST: Dariel Doyle M.D., Ph.D For any questions, [...] MD LAB URINE ORDERABLES Performing Organization Address City/State/[facility] Code Phon e Number APS SPECTRA [facility] PD ADEQUACY (04/22/2022) athologist Signature Kt/V, Residual 2.51 [facility]PS [facility]RA [facility] Creat Clear, 206 L/wk APS SPECTRA Urine Nor Wkly [facility] Specimen (Source) Anatomical Collection Method Collection Time Re ceived Time Location / / Volume Laterality 04/22/2022 04/23/2022 4:41 AM CDT Narrative APS SPECTRA [facility] - 04/23/2022 Unless otherwise specified, test(s) performed at: [facility], [address] [place] [address], [place] [address] [employer] ANALYST: Dariel Doyle M.D., Ph.D For any questions, please call customer service at FREQUENCY:MONTHLY Resulting Agency Comment Specimen source: Urine Sebastian Charles MD LAB BODY FLUIDS AND STOOLS O RDERABLES Performing Organization Address [facility] Phon e Number APS SPECTRA [facility] PDF [...] have been corrected fo r glucose interference. [facility] glucose correction factor f or creatinine [...] 04/23/2022 Unless otherwise specified, test(s) performed at: [facility], [address] [place] [address], [place] [address] [employer] ANALYST: Dariel Doyle M.D., Ph.D For any questions, [...] 04/23/2022 Unless otherwise specified, test(s) performed at: [facility], [address] [place] [address], [place] [address] [employer] ANALYST: Dariel Doyle M.D., Ph.D For any questions, please call customer service at FREQUENCY:MONTHLY Resulting Agency Comment Specimen source: Serum Sebastian Charles MD LAB BLOOD ORDERABLES Performing Organization Address City/[facility] Phon e Number APS SPECTRA [facility] PATIENT [...] 04/23/2022 Unless otherwise specified, test(s) performed at: [facility], [address] [place] [address], [place] [address] [employer] ANALYST: Dariel Doyle M.D., Ph.D For any questions, please call customer service at FREQUENCY:MONTHLY Resulting Agency Comment Specimen source: PD Fluid Sebastian Charles MD LAB BLOOD ORDERABLES Performing Organization Address City/[facility] Phon e Number APS SPECTRA [facility] PATIENT [...] 04/23/2022 Unless otherwise specified, test(s) performed at: [facility], [address] [place] [address], [place] [address] [employer] ANALYST: Dariel Doyle M.D., Ph.D For any questions, please call customer service at FREQUENCY:MONTHLY Resulting Agency Comment Specimen source: PD Fluid Sebastian Charles MD LAB BLOOD ORDERABLES Performing Organization Address City/State/ZIP Code Phon e Number APS SPECTRA [facility] documented in this encounter Visit Diagnoses Not on filedocumented in this encounter Care Teams Fence Installer Helper Relationship Specialty Start Date End Date Harish Silver MD PCP - General 05/17/19 [address] [place] [place] [address] documented as of this encounter
--- OUTSIDE RECORDS SUMMARY | 2022-07-22 11:05 | XMS_ITS | Encounter Summary ---
:1940 Author Organization [facility] Address [address] [place] [address] Care Team Providers Name Role Phone Harish Silver MD Primary Care Provider Encounter Details Date Type Department Care Team Description 12/01/2021 [facility] Sebastian Jimenez MD [address] [place] [address] [place], [place] [phone] (Wo rk) Social History Tobacco Use Types [...] Name: David Castro : 1940 Chart #: [id number] Sex: M This patient was personally seen for a complete visit as part of routine monthly dialysis care. A review of the dialysis treatment, blood pressure, estimated dry weight, and recent lab values was made.These were discussed with the patient and staff as necessary. LEGAL RECOVERY SPECIALIST: Sebastian Charles MD LOCATION: [phone] SCHEDULE: No Routine Schedule Subjective 12/01/21: Georges [...] on filedocumented in this encounter Care Teams Premium Service Representative Relationship Specialty Start Date End Date Harish Silver MD PCP - General 05/17/19 [address] [place] [address] documented as of this encounter
--- OUTSIDE RECORDS SUMMARY | 2022-07-22 11:05 | XMS_ITS | Encounter Summary ---
:1940 Author Organization [facility] Address [address] [place] [address] Care Team Providers Name Role Phone Harish Silver MD Primary Care Provider Encounter Details Date Type Department Care Team Description 03/30/2022 Orders Only [facility] f Sebastian Mohan MD [phone] [place] [address] [place], [place] [phone] (Wo rk) Social History Tobacco Use [...] this encounter Results (ABNORMAL) Spectrae Chemistry (03/30/2022) [facility] gist Method Time Signature BUN 76 [...] 03/31/2022 Unless otherwise specified, test(s) performed at: [facility] [address] [place] [address], [place] [address] ARMATURE BANDER: Dariel Doyle M.D., Ph.D For any questions, please call customer service at FREQUENCY:MONTHLY Resulting Agency Comment Specimen source: Serum Sebastian Charles MD LAB BLOOD ORDERABLES Performing Organization Address City/State/ZIP Code Phon e Number [facility]PS S[facility]RA [facility] (ABNORMAL) HEMATOLOGY (03/30/2022) [facility] gist Method Time Signature WBC 6.97 [...] 03/31/2022 Unless otherwise specified, test(s) performed at: [facility] [address] [place] [address], [place] [address] ARMATURE BANDER: Dariel Doyle M.D., Ph.D For any questions, please call customer service at FREQUENCY:MONTHLY Resulting Agency Comment Specimen source: Blood Sebastian Charles MD LAB BLOOD ORDERABLES Performing Organization Address City/State/ZIP Code Phon e Number [facility]PS [facility]PECT[facility] documented in this encounter Visit Diagnoses Not on filedocumented in this encounter Care Teams Business Leader Relationship Specialty Start Date End Date Harish Silver MD PCP - General 05/17/19 [address] [place] [address] documented as of this encounter
--- OUTSIDE RECORDS SUMMARY | 2022-07-22 11:05 | XMS_ITS | Encounter Summary ---
:1940 Author Organization [facility] Address [address] [place] [address] Care Team Providers Name Role Phone Harish Silver MD Primary Care Provider Encounter Details Date Type Department Care Team Description 01/26/2022 Treatment [facility] Sebastian Jimenez MD [address] [place] [address] [place], [place] [phone] (Wo rk) Social History Tobacco Use Types [...] Name: David Castro : 1940 Chart #: [id number] Sex: M This patient was personally seen for a complete visit as part of routine monthly dialysis care. A review of the dialysis treatment, blood pressure, estimated dry weight, and recent lab values was made.These were discussed with the patient and staff as necessary. WATER SANDER: Sebastian Charles MD LOCATION: [phone] SCHEDULE: No Routine Schedule Subjective 01/26/22: Georges feels fantastic, back like himself again. HE walked 5 miles with >10,000 steps [id number] already this morning. He has no orthopnea [...] went to ER and was admitted at [facility] from 12/02-12/08, had empyemaand chest tube was [...] had two infusions of Feraheme 510mg at [facility], will repeat Hgb and iron studies but [...] on filedocumented in this encounter Care Teams Cover Marker Relationship Specialty Start Date End Date Harish Silver MD PCP - General 05/17/19 [address] [place] [address] documented as of this encounter
--- OUTSIDE RECORDS SUMMARY | 2022-07-22 11:05 | XMS_ITS | Encounter Summary ---
:1940 Author Organization [facility] Address [address] [place] [address] Care Team Providers Name Role Phone Harish Silver MD Primary Care Provider Encounter Details Date Type Department Care Team Description 05/04/2022 Treatment [facility] Sebastian Jimenez MD [address] [place] [address] [place], [place] [phone] (Wo rk) Social History Tobacco Use Types [...] Name: David Castro : 1940 Chart #: [id number] Sex: M This patient was personally seen for a complete visit as part of routine monthly dialysis care. A review of the dialysis treatment, blood pressure, estimated dry weight, and recent lab values was made.These were discussed with the patient and staff as necessary. DRYWALL HANGER HELPER: Sebastian Charles MD LOCATION: [phone] SCHEDULE: No Routine Schedule Subjective Tolerating dialysis well. 05/04/22: Georges was hospitalized at [facility] , had coffee ground emesis and acute on chronic anemia, had EGD showing esophageal ulceration with clip placed and emesis stopped and no further bleeding occurred. BP lower than his usual with anemia, iron was very low and he got first of two feraheme infusions yesterday at [facility] and will have another on Monday. He [...] HE walked 5 miles with >10,000 steps [id number] already this morning. He has no orthopnea or SOB, wt is lower, dialysis is going very well, and he has his liquid diet figured out and is tolerating protein powder and liquicel. He has no concerns at all today and is very pleased since feeling much better after IV iron infusion at the [facility] that we had arranged. 12/22/21: Georges was unfortunately hospitalized twice since our last visit. He went home and was very weak after I saw him last month on 12/01, went to ER and was admitted at [facility] from 12/02-12/08, had empyemaand chest tube was [...] studies from hospital low, getting Feraheme at [facility] ordered by me x2 doses this [...] on filedocumented in this encounter Care Teams Surgery Manager Relationship Specialty Start Date End Date Harish Silver MD PCP - General 05/17/19 [address] [place] [address] documented as of this encounter
--- OUTSIDE RECORDS SUMMARY | 2022-07-22 11:05 | XMS_ITS | Encounter Summary ---
:1940 Author Organization [facility] Address [address] [place] [address] Care Team Providers Name Role Phone Harish Silver MD Primary Care Provider Encounter Details Date Type Department Care Team Description 03/02/2022 Treatment [facility] Sebastian Jimenez MD [address] [place] [address] [place], [place] [phone] (Wo rk) Social History Tobacco Use Types [...] Name: David Castro : 1940 Chart #: [id number] Sex: M This patient was personally seen for a complete visit as part of routine monthly dialysis care. A review of the dialysis treatment, blood pressure, estimated dry weight, and recent lab values was made.These were discussed with the patient and staff as necessary. JAVA DEVELOPER CONSULTANT: Sebastian Charles MD LOCATION: [phone] SCHEDULE: No Routine Schedule Subjective 03/02/22: Georges [...] HE walked 5 miles with >10,000 steps [id number] already this morning. He has no orthopnea or SOB, wt is lower, dialysis is going very well, and he has his liquid diet figured out and is tolerating protein powder and liquicel. He has no concerns at all today and is very pleased since feeling much better after IV iron infusion at the [facility] that we had arranged. 12/22/21: Georges was unfortunately hospitalized twice since our last visit. He went home and was very weak after I saw him last month on 12/01, went to ER and was admitted at [facility] from 12/02-12/08, had empyemaand chest tube was [...] on filedocumented in this encounter Care Teams Zipper Setter Lockstitch Relationship Specialty Start Date End Date Harish Silver MD PCP - General 05/17/19 [address] [place] [address] documented as of this encounter
--- OUTSIDE RECORDS SUMMARY | 2022-07-22 11:05 | XMS_ITS | Encounter Summary ---
:1940 Author Organization [facility] Address [address] [place] [address] Care Team Providers Name Role Phone Harish Silver MD Primary Care Provider Encounter Details Date Type Department Care Team Description 01/26/2022 Orders Only [facility] O f Sebastian Mohan MD [phone] [place] [address] [place], [place] [phone] (Wo rk) Social History Tobacco Use [...] in this encounter Results (ABNORMAL) HEMATOLOGY (01/26/2022) [facility] gist Method Time Signature WBC 8.03 4.80 [...] 01/28/2022 Unless otherwise specified, test(s) performed at: [facility], [address] [place], [place] [id number] COURT OPERATIONS CLERK: Steve Younger M.D. For any questions, please call customer service at FREQUENCY:MONTHLY Resulting Agency Comment Specimen source: Blood Sebastian Charles MD LAB BLOOD ORDERABLES Performing Organization Address City/State/ZIP Code Phon e Number [facility]PS SPECTRA [facility] (ABNORMAL) Spectrae Chemistry (01/26/2022) [facility] gist Method Time Signature BUN 51 (H) [...] 01/28/2022 Unless otherwise specified, test(s) performed at: [facility], [address] [place] [address] OPERATIONS CLERK: Steve Younger M.D. For any questions, please call customer service at FREQUENCY:MONTHLY Resulting Agency Comment Specimen source: Serum Sebastian Charles MD LAB BLOOD ORDERABLES Performing Organization Address City/State/ZIP Code Phon e Number [facility]PS SPECTRA [facility] documented in this encounter Visit Diagnoses Not on filedocumented in this encounter Care Teams Nail Making Machine Setter Relationship Specialty Start Date End Date Harish Silver MD PCP - General 05/17/19 [place] [address] documented as of this encounter
--- OUTSIDE RECORDS SUMMARY | 2022-07-22 11:05 | XMS_ITS | Encounter Summary ---
:1940 Author Organization [facility] Address [address] [place] [address] Care Team Providers Name Role Phone Harish Silver MD Primary Care Provider Encounter Details Date Type Department Care Team Description 06/01/2022 Orders [facility] f Sebastian Mohan MD [address] [place] [address] [place], [place] [phone] (Wo rk) Social History Tobacco Use [...] 06/02/2022 Unless otherwise specified, test(s) performed at: [facility], [address] [place], [place] [address]a d [facility] [place] [address] PRICING LEAD: Dariel Doyle M.D., Ph.D For any questions, please call customer service at FREQUENCY:MONTHLY Resulting Agency Comment Specimen source: Plasma Sebastian Charles MD LAB BLOOD ORDERABLES Performing Organization Address City/State/ZIP Code Phon e Number [facility]PS SPECTRA [facility] (ABNORMAL) HEMATOLOGY (06/01/2022) [facility] gist Method Time Signature WBC 4.82 [...] 06/02/2022 Unless otherwise specified, test(s) performed at: [facility], [address] [place] [address], [place] [address] PRICING LEAD: Dariel Doyle M.D., Ph.D For any questions, please call customer service at FREQUENCY:MONTHLY Resulting Agency Comment Specimen source: Blood Sebastian Charles MD LAB BLOOD ORDERABLES Performing Organization Address City/State/ZIP Code Phon e Number APS SPECTRA [facility] (ABNORMAL) Spectrae Chemistry (06/01/2022) [facility] gist Method Time Signature BUN 28 (H) [...] 06/02/2022 Unless otherwise specified, test(s) performed at: [facility], [address] [place] [address] PRICING LEAD: Dariel Doyle M.D., Ph.D For any questions, please call customer service at FREQUENCY:MONTHLY Resulting Agency Comment Specimen source: Serum Sebastian Charles MD LAB BLOOD ORDERABLES Performing Organization Address City/State/ZIP Code Phon e Number [facility]PS SPECT[facility] documented in this encounter Visit Diagnoses Not on filedocumented in this encounter Care Teams Retreader Relationship Specialty Start Date End Date Harish Silver MD PCP - General 05/17/19 [address] [place] [address] documented as of this encounter
--- OUTSIDE RECORDS SUMMARY | 2022-07-22 11:05 | XMS_ITS | Encounter Summary ---
:1940 Author Organization [facility] Address [address] [place] [address] Care Team Providers Name Role Phone Harish Silver MD Primary Care Provider Encounter Details Date Type Department Care Team Description 12/22/2021 Orders [facility] O f Sebastian Mohan MD [address] [place] [address] [place], [place] [phone] (Wo rk) Social History Tobacco Use [...] this encounter Results (ABNORMAL) Spectrae Chemistry (12/22/2021) [facility] gist Method Time Signature BUN 34 [...] 12/24/2021 Unless otherwise specified, test(s) performed at: [facility], [address] [place] [address] TALENT DEVELOPMENT MANAGER: Steve Younger M.D. For any questions, please [...] 12/23/2021 Unless otherwise specified, test(s) performed at: [facility], [address] [place] [address] TALENT DEVELOPMENT MANAGER: Steve Younger M.D. For any questions, please call customer service at FREQUENCY:MONTHLY Resulting Agency Comment Specimen source: Blood Sebastian Charles MD LAB BLOOD ORDERABLES Performing Organization Address City/State/ZIP Code Phon e Number [facility]PS SPECTRA [facility] documented in this encounter Visit Diagnoses Not on filedocumented in this encounter Care Teams Utility Technician Relationship Specialty Start Date End Date Harish Silver MD PCP - General 05/17/[address] [place] [address] documented as of this encounter
--- OUTSIDE RECORDS SUMMARY | 2022-07-22 11:05 | XMS_ITS | Encounter Summary ---
:1940 Author Organization [facility] Address [address] [place] [address] Care Team Providers Name Role Phone Harish Silver MD Primary Care Provider Encounter Details Date Type Department Care Team Description 06/22/2022 Treatment [facility] Sebastian Jimenez MD [address] [place] [address] [place], [place] [phone] (Wo rk) Social History Tobacco Use Types Packs/Day Years Used Date Smoking Tobacco: Never Alcohol Use Standard Drinks/Week Comments No 0 (1 standard drink = 0.6 oz pure alcoho l) Sex Assigned at Date Recorded Not on file documented as of this encounter Miscellaneous Notes Dialysis Note - Sebastian Charles MD - 06/22/2022 10:14 AM CDT Date: Jun 22, 2022 Patient Name: David Castro : 1940 Chart #: [id number] Sex: M This patient was personally seen for a complete visit as part of routine monthly dialysis care. A review of the dialysis treatment, blood pressure, estimated dry weight, and recent lab values was made.These were discussed with the patient and staff as necessary. REPAIR TABLE OPERATOR: Sebastian Charles MD LOCATION: [phone] SCHEDULE: No Routine Schedule Subjective Tolerating dialysis well. 06/22/22: He feels excellent today. He has remained out of the hospital. No bleeding from esophagus. He is doing the Carafate three times a day and we are checking aluminum level today. His BP is excellent. He is 1 Kg under his dry weight, changed today. Not having frequent alarms, using all 1.5% bags on cycler at night, PD is going well. Using protein additives and this is going well, drink he has though has 1000mg of phos and 800 mg of potassium so checking labs today with this. 06/01/22: He was hospitalized overnight at [facility] 05/13-05/14 with bleeding esophageal ulcer. HadEGD. Got [...] with PD. 05/04/22: Georges was hospitalized at [facility] from , had coffee ground emesis and acute on chronic anemia, had EGD showing esophageal ulceration with clip placed and emesis stopped and no further bleeding occurred. BP lower than his usual with anemia, iron was very low and he got first of two feraheme infusions yesterday at [facility] and will have another on [...] HE walked 5 miles with >10,000 steps [id number] already this morning. He has no orthopnea or SOB, wt is lower, dialysis is going very well, and he has his liquid diet figured out and is tolerating protein powder and liquicel. He has no concerns at all today and is very pleased since feeling much better after IV iron infusion at the [facility] clinic that we had arranged. 12/22/21: Georges was unfortunately hospitalized twice since our last visit. He went home and was very weak after I saw him last month on 12/01, went to ER and was admitted at [facility] from 12/02-12/08, had empyemaand chest tube was [...] Exam Respiratory - Clear to auscultation bilaterally. slightly decreased at R base Cardiovascular - Regular rate. Regular rhythm. No murmur heard. Gastrointestinal - Normal bowel sounds, soft, non-tender. Edema - Trace edema. PD catheter exit site - looks [...] directed metoprolol tartrate 25 mg tablet Take 1/2 by mouth twice a day Protonix (pantoprazole) 40 mg tablet,delayed release (DR/EC) Take 1 tablet by mouth once a day torsemide 20 mg tablet Take 1 tablet by mouth once a day Allergy List Allergen Reaction Reaction Severity Onset Date Tegretol Unknown Medications reviewed and no changes were made. Treatment and Adequacy Assessment BUN mg/dL 28 (06/01/22) 39 (04/22/22) 76 (03/30/22) CREATININE (MG/DL) IN SER/PLAS mg/dL 3.65 (06/01/22) 3.45 (04/22/22) 3.60 (03/30/22) KT/V, PERITONEAL L/wk 0.80 (04/22/22) 0.80 (03/02/22) [...] Anemia Assessment HEMOGLOBIN (G/DL) IN BLOOD g/dL 11.7 (06/01/22) 10.6 (05/11/22) 8.4 (04/22/22) WBC (BLOOD) 1000/mcL 4.82 (06/01/22) 4.92 (04/22/22) 6.97 (03/30/22) IRON SATURATION % 29 (01/26/22) 7 (12/22/21) 12 (12/01/21) FERRITIN ng/mL 111 (06/01/22) 61 (03/02/22) 306 (01/26/22) Hemoglobin is at goal. Iron Saturation is below goal. Ferritin is below goal. Will adjust SIRISHA and intravenous iron. Recent GI bleeding again, but Hgb improved and eating well. I will re-check Hgb today, re-check iron studies next month, consider IV iron at [facility] if iron if iron sat is low or ferritin not improving Nutritional and Metabolic Assessment ALBUMIN (G/DL) g/dL 3.2 (06/01/22) 3.0 (04/22/22) 3.3 (03/30/22) BICARBONATE (CO2) mEq/L 31 (06/01/22) 30 (04/22/22) 34 (03/30/22) POTASSIUM (MMOL/L) IN SER/PLAS mEq/L 4.0 (06/01/22) 4.6 (04/22/22) 3.5 (03/30/22) Sodium mEq/L 141 (06/01/22) 139 (04/22/22) 138 (03/30/22) 25 OH VITAMIN D ng/mL 37.5 (09/13/21) [...] and will need to monitor this closely. Repeat today, did improve last month Bone and Mineral Metabolism Assessment CALCIUM mg/dL 8.8 (06/01/22) 8.3 (04/22/22) 8.5 (03/30/22) CALCIUM (MG/DL) CORRECTED FOR ALBUMIN IN SER/PLAS mg/dL 9.4 (06/01/22) 9.1 (04/22/22) 9.1 (03/30/22) CALCIUM PHOSPHORUS PRODUCT, COR 29 (06/01/22) 22 (04/22/22) 33 (03/30/22) PHOSPHATE (MG/DL) IN SER/PLAS mg/dL 3.1 (06/01/22) 2.4 (04/22/22) 3.6 (03/30/22) IPTH pg/mL 147 (06/01/22) 263 (03/02/22) 190 (12/01/21) Corrected calcium is at goal. Phosphorus is at goal. Intact PTH is at goal. Repeat labs today Cardiovascular Assessment Blood pressure reviewed and is acceptable. Continue same cardiovascular medications. Estimated dry weight is too high, will decrease. Lower EDW by 1 Kg today Transplant Status Patient declined to be evaluated. He was evaluated on past, on hold for years, now advanced age and he has elected to not pursue any further given risks associated with transplant and his GI issues as well. Resuscitation Status Additional Comments: Stable PD, doing well Albumin improving, protein intake improved Check aluminum level again today on Carafate three times a day, discussed aluminum toxicity signs/symptoms with him today and we will need to monitor closely while he is on this Monthly labs today to be done Sebastian Charles MD [ Signed And locked electronically On 06/22/2022 at 10:19:00 AM ] Transcribed: Sebastian Chrales ( 06/22/2022 ) documented in this encounter Plan of Treatment Not on filedocumented as of this encounter Visit Diagnoses Not on filedocumented in this encounter Care Teams Paving Bed Maker Relationship Specialty Start Date End Date Harish Silver MD PCP - General 05/17/19 [address] [place] [address] documented as of this encounter
--- OUTSIDE RECORDS SUMMARY | 2022-07-22 11:05 | XMS_ITS | Encounter Summary ---
:1940 Author Organization [facility] Address [address] [place] [address] Care Team Providers Name Role Phone Harish Silver MD Primary Care Provider Encounter Details Date Type Department Care Team Description 12/01/2021 Orders Only [facility] O f Sebastian Mohan MD [address] [place] [address] [place], [place] [phone] (Wo rk) Social History Tobacco Use [...] in this encounter Results (ABNORMAL) HEMATOLOGY (12/01/2021) [facility] Method Time Signature WBC 6.62 4.80 [...] 2021 Unless otherwise specified, test(s) performed at: [facility], [address] [place] [address] ELECTRICAL CONTROLS TECHNICIAN: Steve Younger M.D. For any questions, please [...] 2021 Unless otherwise specified, test(s) performed at: [facility], [address] [place] [address] ELECTRICAL CONTROLS TECHNICIAN: Steve Younger M.D. For any questions, please [...] 2021 Unless otherwise specified, test(s) performed at: [facility], [address] [place] [address] ELECTRICAL CONTROLS TECHNICIAN: Steve Younger M.D. For any questions, please call customer service at FREQUENCY:MONTHLY Resulting Agency Comment Specimen source: Plasma Sebastian Charles MD LAB BLOOD ORDERABLES Performing Organization Address City/State/ZIP Code Phon e Number [facility]PS S[facility]RA [facility] documented in this encounter Visit Diagnoses Not on filedocumented in this encounter Care Teams Payroll Accounting Specialist Relationship Specialty Start Date End Date Harish Silver MD PCP - General 05/17/[address] [place] [address] documented as of this encounter
--- OUTSIDE RECORDS SUMMARY | 2022-07-22 11:05 | XMS_ITS | Encounter Summary ---
:1940 Author Organization [facility] Address [address] [place] [address] Care Team Providers Name Role Phone Harish Silver MD Primary Care Provider Encounter Details Date Type Department Care Team Description 03/30/2022 Treatment [facility] Sebastian Jimenez MD [address] [place] [address] [place], [place] [phone] (Wo rk) Social History Tobacco Use Types [...] Name: David Castro : 1940 Chart #: [id number] Sex: M This patient was personally seen for a complete visit as part of routine monthly dialysis care. A review of the dialysis treatment, blood pressure, estimated dry weight, and recent lab values was made.These were discussed with the patient and staff as necessary. KOSHER DIETARY SERVICE MANAGER: Sebastian Charles MD LOCATION: [phone] SCHEDULE: No Routine Schedule Subjective Tolerating dialysis [...] HE walked 5 miles with >10,000 steps [id number] already this morning. He has no orthopnea or SOB, wt is lower, dialysis is going very well, and he has his liquid diet figured out and is tolerating protein powder and liquicel. He has no concerns at all today and is very pleased since feeling much better after IV iron infusion at the [facility] that we had arranged. 12/22/21: Georges was unfortunately hospitalized twice since our last visit. He went home and was very weak after I saw him last month on 12/01, went to ER and was admitted at [place] from 12/02-12/08, had empyemaand chest tube was [...] on filedocumented in this encounter Care Teams Cream Beater Relationship Specialty Start Date End Date Harish Silver MD PCP - General 05/17/19 [address] [place] [address] documented as of this encounter
--- OUTSIDE RECORDS SUMMARY | 2022-07-22 11:06 | XMS_ITS | Encounter Summary ---
:1940 Author Organization [facility] Address [address] [place] [address] Care Team Providers Name Role Phone Harish Silver MD Primary Care Provider Encounter Details Date Type Department Care Team Description 09/13/2021 Orders Only [facility] f Sebastian Mohan MD [address] [place] [address] [place], [place] [phone] (Wo rk) Social History Tobacco Use [...] in this encounter Results (ABNORMAL) HEMATOLOGY (09/13/2021) [facility] Method Time Signature WBC 6.99 4.80 [...] / Volume Laterality 09/13/2021 09/14/2021 8:39 PM STONE DRILLER HELPER Narrative [facility] - 09/14/2021 Unless otherwise specified, test(s) performed at: [facility], [address] [place] [address] FIELD CROP FARMWORKER: Setve Younger M.D. For any questions, please call customer service at FREQUENCY:MONTHLY Resulting Agency Comment Specimen source: Blood Sebastian Charles MD LAB BLOOD ORDERABLES Performing Organization Address City/State/ZIP Code Phon e Number [facility] TRACE ELEMENTS (09/13/2021) athologist Signature Aluminum <5 0 - 10 [facility] mcg/L [facility] Comment: This test was developed and its performa nce characteristics determined by [facility]. It has not been cleared or approved by the FDA. The laboratory is regulated under CLIA a s qualified to perform high complexity testing. This test is used fo r clinical purposes. It should not be regarded as investigational or fo r research. Specimen (Source) Anatomical Collection Method Collection Time Re ceived Time Location / / Volume Laterality 09/13/2021 09/14/2021 1:33 PM STONE DRILLER HELPER Narrative [facility] - 09/14/2021 Unless otherwise specified, test(s) performed at: [facility], [address] [place], [place] [id number] FIELD CROP FARMWORKER: Steve Younger M.D. For any questions, please [...] / Volume Laterality 09/13/2021 09/14/2021 1:06 PM STONE DRILLER HELPER Narrative [facility] - 09/14/2021 Unless otherwise specified, test(s) performed at: [facility], [address] [place], [place] [id number] FIELD CROP FARMWORKER: Steve Younger M.D. For any questions, please call customer service at FREQUENCY:MONTHLY Resulting Agency Comment Specimen source: Serum Sebastian Charles MD LAB BLOOD BANK TEST ORDERABL ES Performing Organization Address City/[facility]/ZIP [facility] Phon e Number [...] / Volume Laterality 09/13/2021 09/14/2021 1:06 PM STONE DRILLER HELPER Resulting Agency Comment Specimen source: Serum Sebastian Charles MD LAB BLOOD ORDERABLES Performing Organization Address City/State/ZIP Code Phon e Number [facility] (ABNORMAL) [facility] Chemistry (09/13/2021) [facility] gist Method Time Signature BUN 73 (H) [...] / Volume Laterality 09/13/2021 09/14/2021 1:06 PM STONE DRILLER HELPER Narrative [facility] - 09/14/2021 Unless otherwise specified, test(s) performed at: [facility], [address] [place] [address] FIELD CROP FARMWORKER: Steve Younger M.D. For any questions, please [...] / Volume Laterality 09/13/2021 09/14/2021 1:13 PM STONE DRILLER HELPER Narrative [facility] - 09/14/2021 Unless otherwise specified, test(s) performed at: [facility], [address] [place] [address] FIELD CROP FARMWORKER: Steve Younger M.D. For any questions, please call customer service at FREQUENCY:MONTHLY Resulting Agency Comment Specimen source: Plasma Sebastian Charles MD LAB BLOOD ORDERABLES Performing Organization Address City/State/ZIP Code Phon e Number [facility] documented in this encounter Visit Diagnoses Not on filedocumented in this encounter Care Teams Travel Clerk Relationship Specialty Start Date End Date Harish Silver MD PCP - General 05/17/19 [address] [place] [address] documented as of this encounter
--- OUTSIDE RECORDS SUMMARY | 2022-07-22 11:06 | XMS_ITS | Encounter Summary ---
:1940 Author Organization [facility] Address [address] [place] [address] Care Team Providers Name Role Phone Harish Silver MD Primary Care Provider Encounter Details Date Type Department Care Team Description 05/25/2021 Documentation Only [facility] [place] [address] [place] [address] [address] [place] [address] Social History Tobacco Use Types Packs/Day Years Used Date Smoking Tobacco: Never Alcohol Use Standard Drinks/Week Comments No 0 (1 standard drink = 0.6 oz pure alcoho l) Sex Assigned at Date Recorded Not on file documented as of this encounter Plan of Treatment Not on filedocumented as of this encounter Visit Diagnoses Not on filedocumented in this encounter Care Teams Order Takers Supervisor Relationship Specialty Start Date End Date Harish Silver MD PCP - General 05/17/19 [address] [place] [address] documented as of this encounter
--- OUTSIDE RECORDS SUMMARY | 2022-07-22 11:06 | XMS_ITS | Encounter Summary ---
:1940 Author Organization [facility] Address [address] [place] [address] Care Team Providers Name Role Phone Harish Silver MD Primary Care Provider Encounter Details Date Type Department Care Team Description 10/06/2021 Orders Only [facility] f Sebastian Mohan MD [address] [place] [address] [place], [place] [phone] (Wo rk) Social History Tobacco Use [...] / Volume Laterality 10/06/2021 10/07/2021 8:46 PM ACTING INSTRUCTOR Narrative [facility] - 10/08/2021 Unless otherwise specified, test(s) performed at: [facility] [address] [place] [address] DRIP BOX TENDER: Steve Younger M.D. For any questions, please call customer service at FREQUENCY:OTHER Resulting Agency Comment Specimen source: Serum Sebastian Charles MD LAB BLOOD ORDERABLES Performing Organization Address City/State/ZIP Code Phon e Number [facility] documented in this encounter Visit Diagnoses Not on filedocumented in this encounter Care Teams Community Living Coach Relationship Specialty Start Date End Date Harish Silver MD PCP - General 05/17/19 [address] [place] [address] documented as of this encounter
--- OUTSIDE RECORDS SUMMARY | 2022-07-22 11:06 | XMS_ITS | Encounter Summary ---
:1940 Author Organization [facility] Address [address] [place] [address] Care Team Providers Name Role Phone Harish Silver MD Primary Care Provider Encounter Details Date Type Department Care Team Description 09/15/2021 Treatment [facility] Sebastian Jimenez MD [address] [place] [address] [place], [place] [phone] (Wo rk) Social History Tobacco Use Types [...] Name: David Castro : 1940 Chart #: [id number] Sex: M Has the patient previously been [...] on filedocumented in this encounter Care Teams Nuclear Auxiliary Operator Relationship Specialty Start Date End Date Harish Silver MD PCP - General 05/17/19 [address] [place] [address] documented as of this encounter
--- OUTSIDE RECORDS SUMMARY | 2022-07-22 11:06 | XMS_ITS | Encounter Summary ---
:1940 Author Organization [facility] Address [address] [place] [address] Care Team Providers Name Role Phone Harish Silver MD Primary Care Provider Encounter Details Date Type Department Care Team Description 09/13/2021 Treatment [facility] Sebastian Jimenez MD [address] [place] [address] [place], [place] [phone] (Wo rk) Social History Tobacco Use Types [...] Name: David Castro : 1940 Chart #: [id number] Sex: M Patient Type: ESRD Modality: Peritoneal Dialysis Molding Line Assistant: Sebastian Charles MD Location: [phone] Schedule: No Routine Schedule Initial Access Date [...] on filedocumented in this encounter Care Teams Electrical Instrumentation Technician Relationship Specialty Start Date End Date Harish Silver MD PCP - General 05/17/19 [address] [place] [address] documented as of this encounter
--- OUTSIDE RECORDS SUMMARY | 2022-07-22 11:06 | XMS_ITS | Encounter Summary ---
:1940 Author Organization [facility] Address [address] [place] [address] Care Team Providers Name Role Phone Harish Silver MD Primary Care Provider Encounter Details Date Type Department Care Team Description 09/22/2021 Treatment [facility] Sebastian Jimenez MD [address] [place], [place] [phone] (Wo rk) Social History Tobacco Use Types [...] Name: David Castro : 1940 Chart #: [id number] Sex: M This patient was personally seen for a complete visit as part of routine monthly dialysis care. A review of the dialysis treatment, blood pressure, estimated dry weight, and recent lab values was made.These were discussed with the patient and staff as necessary. PAYLOADER MACHINE OPERATOR: Sebastian Charles MD LOCATION: [phone] SCHEDULE: No Routine Schedule Subjective 09/22/21: Georges [...] on filedocumented in this encounter Care Teams Epic Cupid Analyst Relationship Specialty Start Date End Date Harish Silver MD PCP - General 05/17/19 [address] [place] [address] documented as of this encounter
--- OUTSIDE RECORDS SUMMARY | 2022-07-22 11:06 | XMS_ITS | Encounter Summary ---
:1940 Author Organization [facility] Address [address] [place] [address] Care Team Providers Name Role Phone Harish Silver MD Primary Care Provider Encounter Details Date Type Department Care Team Description 09/22/2021 Orders Only [facility] f Sebastian Mohan MD [address] [place] [address] [place], [place] [phone] (Wo rk) Social History Tobacco Use [...] / Volume Laterality 09/22/2021 09/23/2021 1:41 PM ENGINEERING FACULTY MEMBER Narrative [facility] - 09/24/2021 Unless otherwise specified, test(s) performed at: [facility], [address] [place] [address] SENIOR ELECTRONICS TECHNICIAN: Steve Younger M.D. For any questions, please call customer service at FREQUENCY:MONTHLY Resulting Agency Comment Specimen source: Plasma Sebastian Charles MD LAB BLOOD ORDERABLES Performing Organization Address City/State/[facility] Phon e Number [facility] IMMUNO CHEMISTRY (09/22/2021) P athologist Signature Hep B Surface Negative Negative [facility] Ag [facility] Specimen (Source) Anatomical Collection Method Collection Time Re ceived Time Location / / Volume Laterality 09/22/2021 09/23/2021 3:00 PM ENGINEERING FACULTY MEMBER Narrative [facility] - 09/23/2021 Unless otherwise specified, test(s) performed at: [facility], [address] [place] [address] SENIOR ELECTRONICS TECHNICIAN: Steve Younger M.D. For any questions, please call customer service at FREQUENCY:MONTHLY Resulting Agency Comment Specimen source: Serum Sebastian Charles MD LAB BLOOD ORDERABLES Performing Organization Address City/State/[facility] Code Phon e Number APS [...] / Volume Laterality 09/22/2021 09/23/2021 3:00 PM ENGINEERING FACULTY MEMBER Narrative [facility] - 09/23/2021 Unless otherwise specified, test(s) performed at: [facility], [address] [place] [address] SENIOR ELECTRONICS TECHNICIAN: Steve Younger M.D. For any questions, please call customer service at FREQUENCY:MONTHLY Resulting Agency Comment Specimen source: Serum Sebastian Charles MD LAB BLOOD ORDERABLES Performing Organization Address City/State/ZIP Code Phon e Number [facility] (ABNORMAL) HEMATOLOGY (09/22/2021) [facility] gist Method Time Signature WBC 4.99 [...] / Volume Laterality 09/22/2021 09/23/2021 1:30 PM ENGINEERING FACULTY MEMBER Narrative [facility] - 09/23/2021 Unless otherwise specified, test(s) performed at: [facility], [address] [place] [address] SENIOR ELECTRONICS TECHNICIAN: Steve Younger M.D. For any questions, please call customer service at FREQUENCY:MONTHLY Resulting Agency Comment Specimen source: Blood Sebastian Charles MD LAB BLOOD ORDERABLES Performing Organization Address City/State/ZIP Code Phon e Number [facility] documented in this encounter Visit Diagnoses Not on filedocumented in this encounter Care Teams Car Blocker Relationship Specialty Start Date End Date Harish Silver MD PCP - General 05/17/19 [address] [place] [address] documented as of this encounter
--- OUTSIDE RECORDS SUMMARY | 2022-07-22 11:06 | XMS_ITS | Encounter Summary ---
:1940 Author Organization [facility] Address [address] [place] [address] Care Team Providers Name Role Phone Harish Silver MD Primary Care Provider Encounter Details Date Type Department Care Team Description 05/25/2021 Documentation Only [facility] Harish Maxwell MD [place] [address] [place] [address] [address] [place] [address] Social History Tobacco Use Types Packs/Day Years Used Date Smoking Tobacco: Never Alcohol Use Standard Drinks/Week Comments No 0 (1 standard drink = 0.6 oz pure alcoho l) Sex Assigned at Date Recorded Not on file documented as of this encounter Plan of Treatment Not on filedocumented as of this encounter Visit Diagnoses Not on filedocumented in this encounter Care Teams Clearance Diver Relationship Specialty Start Date End Date Harish Silver MD PCP - General 05/17/19 [address] [place] [address] documented as of this encounter
== END 2022-06-05 21:25 | disposition home or self-care (01) ==
LOC: AMB 07-22 10:55
PROVIDERS: PCP Family Medicine; Visit Provider Family Medicine
DX: K92.0 Hematemesis (principal)
CPT/HCPCS: A0425; A0426

== ENCOUNTER 2023-06-07 09:30 | Outpatient (RCR) | payer MEDICARE, SELFPAY | END 2023-06-07 10:15 | disposition home or self-care (01) | PROVIDERS: PCP Family Medicine; Visit Provider Family Medicine | DX: M72.2 Plantar fascial fibromatosis (principal); R26.2 Difficulty in walking, not elsewhere classified; M25.672 Stiffness of left ankle, not elsewhere classified; M25.671 Stiffness of right ankle, not elsewhere classified; M79.671 Pain in right foot; Z51.89 Encounter for other specified aftercare | CPT/HCPCS: 97110; 97112; 97140; 97162 ==

== ENCOUNTER 2023-11-02 08:57 | Outpatient (CLI) | payer MEDICARE, OTHER, SELFPAY ==
--- NOTE | 2023-11-02 09:15 | MR_ITS ---
[address] [address] Phone:?[phone] Fax:?[phone] Referring Physician Information: Jesus Mejia M.D. [address] [facility] [address] Phone:?[phone] Fax:?[phone] Patient:Jez Castro D.O.B:?1940 Sex:?Male Phone:? [facility] MRN:?[id number] Exam Date:?11/02/2023 EXAM: MRI EXAMINATION OF THE RIGHT KNEE CLINICAL INFORMATION: Right knee pain. No specific injury. History of surgery. Evaluate lateral meniscus tear. TECHNICAL INFORMATION: Coronal PD and STIR. Axial PD and T2 fat saturation. Sagittal PD and PD fat saturation images acquired. No prior studies for comparison. INTERPRETATION: Bones: No appreciable subchondral edema signal or cystic change. No evidence for an occult fracture/stress reaction. No evidence for AVN. No other abnormal bone marrow edema pattern is identified. Ligaments and tendons: The medial collateral ligament is intact, without acute sprain or tear. The iliotibial band, fibular collateral ligament, biceps femoris tendon and popliteus tendon all are intact. The anterior cruciate ligament is intact without acute sprain or tear. The posterior cruciate ligament is intact. Extensor Mechanism: The patellar and quadriceps tendons are intact. The medial and lateral retinacula are intact. Knee Joint: There is a small to moderate knee joint effusion. There is a small popliteal cyst. There is no discrete loose body seen within the joint. Medial Compartment: There is a mildly complex tear identified involving the body of the medial meniscus. Resultant appearance of meniscal tissue flipped just around the corner along side the periphery of the tibial plateau. There is a horizontal appearance of tearing which continues into the posterior horn. Moderate to marked truncation involves the mid to posterior portion of the posterior horn of the meniscus. No parameniscal cyst. There is no focal chondral defect. No other significant changes of chondromalacia. Lateral Compartment: There is a horizontal appearance of tear involving the body of the lateral meniscus. There is a focal, shallow superior surface tear involving the posterior horn. No displaced flap fragment or parameniscal cyst. There is no focal chondral defect. No other significant changes of chondromalacia. Patellofemoral articulation: There is no focal chondral defect. No other significant chondromalacia. CONCLUSION: 1. Mildly complex tear involves the body of the medial meniscus with horizontal tear extending into the posterior horn. Meniscal tissue appears flipped just around the corner along side the periphery tibial plateau at the level of the body. Moderate to marked truncation involves the mid to posterior portion of the posterior horn, and question whether this may be related to prior surgical change. 2. Horizontal tear involves the body of the lateral meniscus. There is a focal, shallow superior surface tear of the posterior horn. 3. The cruciate ligaments are intact. No other residua a ligament injury involving the knee. 4. No evidence for a chondral defect or other appreciable chondromalacia. 5. There is a small to moderate knee joint effusion and small popliteal cyst. [facility]ES Electronically signed on 11/02/2023 12:43:00 PM by Flo Pandey M.D.
== END 2023-11-02 08:58 | disposition home or self-care (01) ==
LOC: MRI 08:58
PROVIDERS: PCP Family Medicine; Visit Provider Orthopaedic Surgery
DX: M25.561 Pain in right knee (principal); S83.281A Other tear of lateral meniscus, current injury, right knee, initial encounter; S83.231A Complex tear of medial meniscus, current injury, right knee, initial encounter; M25.461 Effusion, right knee
CPT/HCPCS: 73721

== ENCOUNTER 2023-12-07 10:02 | Day surgery (SDC) | payer MEDICARE, OTHER, SELFPAY ==
[2023-12-07] VITALS (12 sets, daily range): BP systolic 118–140; BP diastolic 79–89; PULSE 73–90; RESP 16–18; TEMP 35.8–36.9; O2SAT 92–100; BMI 27.1
--- OUTSIDE RECORDS SUMMARY | 2023-12-07 10:05 | XMS_ITS ---
Author Name Gwendolyn, Clinic Address [address] [place] [id number] Phone [phone] Organization [facility] e, NA DOCUMENT DISCLAIMER Multiple document versions may exist, please be sure you review the latest version. The information in the [facility] Continuity of Care Document represents a summary of certain health and medical information. It may not contain the complete medical history for the patient and should be independently verified. The represented time in the document is Eastern Time. 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 Active December 27, 2021 Pleural effusion in other co nditions classified elsewhere J91.8 Active December 13, 2021 Iron deficiency anemia, unspecified D50.9 Activ e December 01, 2021 Moderate protein-calorie malnutrition E44.0 Act lynsey October 27, 2021 Encounter for immunization Z23 Active J anuary 2021 Renal sclerosis, unspecified N26.9 Active September 13, 2021 End stage renal disease N18.6 Active Murray alla 2021 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 Active September 13, 2021 Generalized anxiety disorder F41.1 Active September 13, 2021 Gastro-esophageal reflux dis ease with esophagitis, without bleeding K21.00 Active September 13, 2021 Gout, unspecified M10.9 Active August Secondary hyperparathyroidism of renal origin N25.81 Active September 13, 2021 Obstructive sleep apnea (adult) (pediatric) G47.33 Active September 13, 2021 Acute and subacute endocarditis, unspecified I33.9 Active September 13, 2021 Paroxysmal atrial fibrillation I48.0 Active September 13, 2021 Essential (primary) hypertension I10 Active September 13, 2021 Polyp of colon K63.5 Active September 13 022 Thrombocytopenia, unspecified D69.6 Active September 13, 2021 ALLERGIES AND ADVERSE REACTIONS Substance Reaction Severity Status Tegretol Unknown Active SOCIAL HISTORY Tobacco Use Status Tobacco Type Unknown if ever consumed tobacco - Caregiver Characteristics No Information Available Characteristics of Home environment No Information Available MEDICATIONS Home Medications Medication Instructions Dosage Route Start Date End Date [facility] allopurinol 100 mg Take by mouth once a day 1 tablet ORAL September 15, 2021 Active amoxicillin 500 mg Take by mouth once a day as directed 4 capsule ORAL September 15, 2021 Active calcitriol 0.25 mcg Take by mouth three times a week 1 capsule ORAL June 13, 2022 Active Dialyvite 100-1 mg by mouth once a day 1 tablet ORAL July 27, 2022 Active docusate sodium 100 mg Take by mouth twice a day as needed 1 tablet ORAL March 23, 2022 Active Eliquis 2.5 mg Take by mouth once a day 1 tablet ORAL December 04, 2023 Active famotidine 20 mg Take by mouth once a day 1 tablet ORAL December 21, 2022 Active gentamicin 0.1% Apply to skin once a day as directed TOPICAL December 13, 2021 Active metoprolol tartrate 25 mg Take by mouth twice a day / ORAL May 11, 2022 Active pantoprazole 40 mg Take by mouth twice a day 1 tablet ORAL December 21, 2022 Active torsemide 20 mg Take by mouth once a day 1 tablet ORAL December 22, 2021 Active Vitamin D3 50 mcg (2,000 unit) Take by mouth once a day 1 tablet ORAL August 29, 2022 Active VITAL SIGNS Post-Treatment Vital Signs Vital Sign Value Date / Time Blood Pressure-sitting 115/70 mmHg December 07, 2023 12:00 AM Heart Rate 79 beats per minute December 06 12:00 AM Temperature 97.2 deg. F December 07, 2023 1 2:00 AM Weight Vital Sign Value Date / Time Estimated Dry Weight 77 kg September 11, 2023 11:59 PM Post-Dialysis 79.37 kg December 07, 2023 1 2:00 AM Other Other Value Date / Time Height 171 cm September 11, 2023 12:00 AM HEALTH CONCERNS Tuberculosis Testing TST Date Administered TST Date Read TST Result 09/14/2021 09/16/2021 Negative (<5) mm LAB RESULTS Hematology Result Type Result Value Relevant Referen ce Range Interpretation Date TIBC 258 mcg/dL 185 - 515 mcg/dL - June 23, 2023 UIBC (Calc) 107 mcg/dL 155 - 355 mcg/dL Low Novembe r 2022 Ferritin 57 ng/mL 22 - 322 ng/mL - June Transferrin Sat. (Calc) 59 % 20 - 55 % High June 23 WBC (No Diff) 6.22 1000/mcL 4.80 - 10.80 1000/mcL - June 23, 2023 Neutrophils 75.1 % 40.0 - 75.0 % High June UIBC (Calc) 206 mcg/dL 155 - 355 mcg/dL - Decembe r 2022 Transferrin Sat. (Calc) 25 % 20 - 55 % - July 21 TIBC 274 mcg/dL 185 - 515 mcg/dL - July 21, 2023 WBC (No Diff) 5.88 1000/mcL 4.80 - 10.80 1000/mcL - July 21, 2023 Neutrophils 72.9 % 40.0 - 75.0 % - July Neutrophils 73.0 % 40.0 - 75.0 % - August WBC (No Diff) 7.04 1000/mcL 4.80 - 10.80 1000/mcL - August 28, 2023 Transferrin Sat. (Calc) 34 % 20 - 55 % - August 28, 2023 UIBC (Calc) 165 mcg/dL 155 - 355 mcg/dL - August 28, 2023 TIBC 251 mcg/dL 185 - 515 mcg/dL - August 28, 2023 Iron 57 mcg/dL 45 - 160 mcg/dL - October 02, 2023 UIBC (Calc) 224 mcg/dL 155 - 355 mcg/dL - [id number] TIBC 281 mcg/dL 185 - 515 mcg/dL - October 02, 2023 Transferrin Sat. (Calc) 20 % 20 - 55 % - October 02 Ferritin 25 ng/mL 22 - 322 ng/mL - September 212023 JUAN ANTONIO 2.2 % 0.0 - 4.0 % - October 02, 2023 Basophils 0.7 % 0.0 - 1.5 % - October 02, 2023 Lymphocytes 5.9 % 19.0 - 48.0 % Low September 212023 Neutrophils 69.4 % 40.0 - 75.0 % - September 212023 Eosinophil 13.6 % 0.0 - 7.0 % High October 02, 2023 Monocytes 8.1 % 3.0 - 10.0 % - October 02, 2023 WBC (No Diff) 6.25 1000/mcL 4.80 - 10.80 1000/mcL - October 02, 2023 RDW 13.3 % 11.5 - 14.5 % - September MCHC 32.4 g/dL 30.0 - 36.0 g/dL - October 02, 2023 Hemoglobin x 3 37.2 % 42.0 - 54.0 % Low Februar 2023 MCH 34.9 pg 27.0 - 31.0 pg High September 212023 Iron 60 mcg/dL 45 - 160 mcg/dL - November 03, 2023 UIBC (Calc) 241 mcg/dL 155 - 355 mcg/dL - October 192023 TIBC 301 mcg/dL 185 - 515 mcg/dL - October Transferrin Sat. (Calc) 20 % 20 - 55 % - November 03, 2023 Lymphocytes 6.8 % 19.0 - 48.0 % Low November 03, 2023 Neutrophils 69.3 % 40.0 - 75.0 % - November 03, 2023 Eosinophil 16.6 % 0.0 - 7.0 % High November 02 4 Monocytes 5.6 % 3.0 - 10.0 % - November 02 24 JUAN ANTONIO 1.1 % 0.0 - 4.0 % - November 02 4 Basophils 0.6 % 0.0 - 1.5 % - November 02 4 WBC (No Diff) 5.71 1000/mcL 4.80 - 10.80 1000/mcL - November 03, 2023 MCH 34.4 pg 27.0 - 31.0 pg High November 03, 2023 RDW 13.7 % 11.5 - 14.5 % - November 02 024 MCHC 32.1 g/dL 30.0 - 36.0 g/dL - October Hemoglobin x 3 36.6 % 42.0 - 54.0 % Low October 192023 Basophils 0.6 % 0.0 - 1.5 % - December 03 4 Eosinophil 6.5 % 0.0 - 7.0 % - December 03 4 WBC (No Diff) 4.85 1000/mcL 4.80 - 10.80 1000/mcL - December 04, 2023 JUAN ANTONIO 1.0 % 0.0 - 4.0 % - December 03 Neutrophils 81.0 % 40.0 - 75.0 % High December 04, 2023 Monocytes 4.9 % 3.0 - 10.0 % - December 03 24 Lymphocytes 6.0 % 19.0 - 48.0 % Low December 04, 2023 HCT 38.2 % 42.0 - 52.0 % Low December 03 024 RBC 3.59 mill/mcL 4.70 - 6.10 mill/mcL Low December 04, 2023 Platelets 127 1000/mcL 130 - 400 1000/mcL Low Apri l 2023 Hemoglobin x 3 36.3 % 42.0 - 54.0 % Low November 192023 MCHC 31.6 g/dL 30.0 - 36.0 g/dL - November MCH 33.6 pg 27.0 - 31.0 pg High December 04, 2023 HGB 12.1 g/dL 14.0 - 18.0 g/dL Low November RDW 13.2 % 11.5 - 14.5 % - December 03 024 UIBC (Calc) 261 mcg/dL 155 - 355 mcg/dL - November 192023 Iron 48 mcg/dL 45 - 160 mcg/dL - December 04, 2023 Transferrin Sat. (Calc) 16 % 20 - 55 % Low December 04, 2023 TIBC 309 mcg/dL 185 - 515 mcg/dL - November Metabolic/Renal Result Type Result Value Relevant Referen ce Range Interpretation Date Vitamin B12 600 pg/mL 211 - 911 pg/mL - June 23, 2023 Potassium 3.8 mEq/L 3.5 - 5.1 mEq/L - August 222023 BUN/Creat Ratio 10.8 10.0 - 20.0 - October 02, 2023 Sodium 140 mEq/L 136 - 145 mEq/L - October 02, 2023 Potassium 3.9 mEq/L 3.5 - 5.1 mEq/L - October 02, 2023 Chloride 104 mEq/L 96 - 108 mEq/L - September 212023 Bicarbonate 29 mEq/L 20 - 31 mEq/L - September 212023 Creatinine, Serum 4.07 mg/dL 0.60 - 1.30 mg/dL High October 02, 2023 BUN 44 mg/dL 6 - 19 mg/dL High October 02, 2023 Urea Nitrogen, Urine, Timed 437 mg/dL No Reference Range Provided - November 03, 2023 nPCR 0.98 g/kg/day No Reference Ran ge Provided - November 03, 2023 BUN 45 mg/dL 6 - 19 mg/dL High November 02 Creatinine, Serum 4.17 mg/dL 0.60 - 1.30 mg/dL High November 03, 2023 BUN/Creat Ratio 10.8 10.0 - 20.0 - October Sodium 142 mEq/L 136 - 145 mEq/L - November 03, 2023 Potassium 4.5 mEq/L 3.5 - 5.1 mEq/L - November 03, 2023 Chloride 107 mEq/L 96 - 108 mEq/L - November 03, 2023 Bicarbonate 28 mEq/L 20 - 31 mEq/L - November 03, 2023 Creatinine, Serum 3.84 mg/dL 0.60 - 1.30 mg/dL High December 04, 2023 Sodium 144 mEq/L 136 - 145 mEq/L - December 04, 2023 BUN/Creat Ratio 11.5 10.0 - 20.0 - November Chloride 109 mEq/L 96 - 108 mEq/L High December 04, 2023 Potassium 4.3 mEq/L 3.5 - 5.1 mEq/L - December 04, 2023 Bicarbonate 25 mEq/L 20 - 31 mEq/L - December 04, 2023 BUN 44 mg/dL 6 - 19 mg/dL High December 03 Bone/Mineral Result Type Result Value Relevant Referen ce Range Interpretation Date Magnesium 2.1 mg/dL 1.6 - 2.6 mg/dL - February 23, 2023 Magnesium 2.4 mg/dL 1.6 - 2.6 mg/dL - May 212022 Magnesium 2.2 mg/dL 1.6 - 2.6 mg/dL - June 23, 2023 Vitamin D 25 Hydroxy 39.1 ng/mL 30.0 - 100.0 ng/mL - June 23, 2023 Corrected Ca x P Product 33 0 - 54 - October 02 Magnesium 2.0 mg/dL 1.6 - 2.6 mg/dL - October 02, 2023 Calcium, Total 8.6 mg/dL 8.7 - 10.4 mg/dL Low Febr uary 2023 Phosphorus 3.6 mg/dL 2.6 - 4.5 mg/dL - October 02, 2023 Ca x P Product 31 0 - - September 212023 Alkaline Phosphatase 322 U/L 40 - 129 U/L High Fe bruary 2023 PTH-Intact, Plasma 235 pg/mL 16 - 80 pg/mL High Feb ruary 2023 Corrected Ca x P Product 28 0 - - November 03, 2023 Calcium, Total 8.5 mg/dL 8.7 - 10.4 mg/dL Low Nader h 2023 Phosphorus 3.1 mg/dL 2.6 - 4.5 mg/dL - November 03, 2023 Ca x P Product 26 0 - - November 03, 2023 Calcium, Total 8.6 mg/dL 8.7 - 10.4 mg/dL Low Apri l 2023 Ca x P Product 34 0 - - December 04, 2023 Phosphorus 4.0 mg/dL 2.6 - 4.5 mg/dL - December 04, 2023 Corrected Ca x P Product 36 0 - 54 - December 04, 2023 Liver/Nutrition Result Type Result Value Relevant Reference Range Interpre tation Date Albumin (BCG) 3.3 g/dL 3.5 - 5.2 g/dL Low 2023 Albumin (BCG) 3.4 g/dL 3.5 - 5.2 g/dL Low October 192023 Albumin (BCG) 3.4 g/dL 3.5 - 5.2 g/dL Low November 192023 Glucose 112 mg/dL 70 - 100 mg/dL High December 04, 2023 Peritoneal Dialysis Testing Result Type Result Value Relevant Referen ce Range Interpretation Date Total Urea Nitrogen, Urine 7.7 g/24 hr 12.0 - 20.0 g/24 hr Low January 31, 2023 Urea Clear, Urine Norm 7.8 mL/min 64.0 - 99.0 mL/min Low January 31, 2023 Urea Clearance, Urine 8.8 mL/min 64.0 - 99.0 mL/min Low January 31, 2023 Urea Clear, Urine Norm Wkly 89 L/wk No Reference Range Provided - January 31, 2023 Creatinine, Urine 85.4 mg/dL No Reference R rayna Provided - January 31, 2023 Total Creatinine, Urine 1.3 g/24 hr 0.7 - 1.8 g/24 hr - January 31, 2023 Creat Clear, Urine Norm Wkly 173 L/wk No Reference Range Provided - January 31, 2023 Creat Clear, Urine Weekly 195.6 L/wk No Reference Range Provided - January 31, 2023 Wkly Creat Cl (Resid + Dial) 189 L/wk No Reference Range Provided - January 31, 2023 Urea Nitrogen, PDF 24 Hr 2125.3 mg/24 hr No Reference Range Provided - January 31, 2023 PD Kt/V 24 Hr Dialysate Urea 47 mg/dL No Reference Range Provided - January 31, 2023 Urea Clearance, PD Fluid 2.4 mL/min No Reference Range Provided - January 31, 2023 Urea Clearance, PDF Norm 2.1 mL/min No Reference Range Provided - January 31, 2023 Urea Clear, Total Norm Wkly 113 L/wk No Reference Range Provided - January 31, 2023 Urea Clear, PDF Norm Wkly 24 L/wk No Reference Range Provided - January 31, 2023 Creatinine, PDF 24 Hr 117.6 mg/24 hr No Reference Range Provided - January 31, 2023 Creatinine, PD Fluid, 24 Hr Uncorrected 2.7 mg/dL No Reference Range Provided - January 31, 2023 Creatinine, PDF Timed Cor 2.6 mg/dL No Reference Range Provided - January 31, 2023 Glucose, PDF Timed 617 mg/dL No Reference Range Provided - January 31, 2023 Creatinine Clear, PDF 1.8 mL/min No Reference Range Provided - January 31, 2023 Creatinine Clear, PDF Norm 1.6 mL/min No Reference Range Provided - January 31, 2023 Creat Clear, PDF Weekly 18 L/wk No Reference Range Provided - January 31, 2023 Kt/V, Residual 2.04 No Reference Ran ge Provided - January 31, 2023 PNA 89 g/day No Reference Ran ge Provided - January 31, 2023 Total Urea Nitrogen, Urine 7.4 g/24 hr 12.0 - 20.0 g/24 hr Low May 03, 2023 Urea Clear, Urine Norm 6.2 mL/min 64.0 - 99.0 mL/min Low May 03, 2023 Urea Clearance, Urine 7.0 mL/min 64.0 - 99.0 mL/min Low May 03, 2023 Urea Clear, Urine Norm Wkly 70 L/wk No Reference Range Provided - May 03, 2023 Creatinine, Urine 83.7 mg/dL No Reference R rayna Provided - May 03, 2023 Total Creatinine, Urine 1.1 g/24 hr 0.7 - 1.8 g/24 hr - May 03, 2023 Creat Clear, Urine Norm Wkly 152 L/wk No Reference Range Provided - May 03, 2023 Creat Clear, Urine Weekly 171.4 L/wk No Reference Range Provided - May 03, 2023 Wkly Creat Cl (Resid + Dial) 169 L/wk No Reference Range Provided - May 03, 2023 Urea Nitrogen, PDF 24 Hr 2773.1 mg/24 hr No Reference Range Provided - May 03, 2023 PD Kt/V 24 Hr Dialysate Urea 56 mg/dL No Reference Range Provided - May 03, 2023 Urea Clearance, PD Fluid 2.6 mL/min No Reference Range Provided - May 03, 2023 Urea Clearance, PDF Norm 2.3 mL/min No Reference Range Provided - May 03, 2023 Urea Clear, Total Norm Wkly 96 L/wk No Reference Range Provided - May 03, 2023 Urea Clear, PDF Norm Wkly 26 L/wk No Reference Range Provided - May 03, 2023 Creatinine, PDF 24 Hr 123.8 mg/24 hr No Reference Range Provided - May 03, 2023 Creatinine, PD Fluid, 24 Hr Uncorrected 2.7 mg/dL No Reference Range Provided - May 03, 2023 Creatinine, PDF Timed Cor 2.5 mg/dL No Reference Range Provided - May 03, 2023 Glucose, PDF Timed 959 mg/dL No Reference Range Provided - May 03, 2023 Creatinine Clear, PDF 1.9 mL/min No Reference Range Provided - May 03, 2023 Creatinine Clear, PDF Norm 1.7 mL/min No Reference Range Provided - May 03, 2023 Creat Clear, PDF Weekly 19 L/wk No Reference Range Provided - May 03, 2023 Kt/V, Residual 1.61 No Reference Ran ge Provided - May 03, 2023 PNA 92 g/day No Reference Ran ge Provided - May 03, 2023 Creatinine Clearance - Measured PD 174 L/wk No Reference Range Provided - July 28, 2023 Total Urea Nitrogen, Urine 5.4 g/24 hr 12.0 - 20.0 g/24 hr Low July 28, 2023 Urea Clear, Urine Norm 5.2 mL/min 64.0 - 99.0 mL/min Low July 28, 2023 Urea Clearance, Urine 5.8 mL/min 64.0 - 99.0 mL/min Low July 28, 2023 Urea Clear, Urine Norm Wkly 58 L/wk No Reference Range Provided - July 28, 2023 Creatinine, Urine 90.9 mg/dL No Reference R rayna Provided - July 28, 2023 Total Creatinine, Urine 1.0 g/24 hr 0.7 - 1.8 g/24 hr - July 28, 023 Creat Clear, Urine Norm Wkly 143 L/wk No Reference Range Provided - July 28, 2023 Creat Clear, Urine Weekly 157.2 L/wk No Reference Range Provided - July 28, 2023 Wkly Creat Cl (Resid + Dial) 158 L/wk No Reference Range Provided - July 28, 2023 Urea Nitrogen, PDF 24 Hr 2287.2 mg/24 hr No Reference Range Provided - July 28, 2023 PD Kt/V 24 Hr Dialysate Urea 43 mg/dL No Reference Range Provided - July 28, 2023 Urea Clearance, PD Fluid 2.4 mL/min No Reference Range Provided - July 28, 2023 Urea Clearance, PDF Norm 2.2 mL/min No Reference Range Provided - July 28, 2023 Urea Clear, Total Norm Wkly 82 L/wk No Reference Range Provided - July 28, 2023 Urea Clear, PDF Norm Wkly 24 L/wk No Reference Range Provided - July 28, 2023 Creatinine, PDF 24 Hr 106.4 mg/24 hr No Reference Range Provided - July 28, 2023 Creatinine, PD Fluid, 24 Hr Uncorrected 2.2 mg/dL No Reference Range Provided - July 28, 2023 Creatinine, PDF Timed Cor 2.0 mg/dL No Reference Range Provided - July 28, 2023 Glucose, PDF Timed 1133 mg/dL No Reference Range Provided - July 28, 2023 Creatinine Clear, PDF 1.7 mL/min No Reference Range Provided - July 28, 2023 Creatinine Clear, PDF Norm 1.5 mL/min No Reference Range Provided - July 28, 2023 Creat Clear, PDF Weekly 17 L/wk No Reference Range Provided - July 28, 2023 Kt/V, Residual 1.36 No Reference Ran ge Provided - July 28, 2023 PNA 73 g/day No Reference Ran ge Provided - July 28, 2023 Total Urea Nitrogen, Urine 5.7 g/24 hr 12.0 - 20.0 g/24 hr Low November 03, 2023 Urea Clear, Urine Norm 7.9 mL/min 64.0 - 99.0 mL/min Low November 02 4 Urea Clearance, Urine 8.8 mL/min 64.0 - 99.0 mL/min Low November 02 4 Urea Clear, Urine Norm Wkly 88 L/wk No Reference Range Provided - November 03, 2023 Urea Nitrogen, PDF 24 Hr 1898.6 mg/24 hr No Reference Range Provided - November 03, 2023 PD Kt/V 24 Hr Dialysate Urea 36 mg/dL No Reference Range Provided - November 03, 2023 Urea Clearance, PD Fluid 2.9 mL/min No Reference Range Provided - November 03, 2023 Urea Clearance, PDF Norm 2.7 mL/min No Reference Range Provided - November 03, 2023 Urea Clear, Total Norm Wkly 117 L/wk No Reference Range Provided - November 03, 2023 Urea Clear, PDF Norm Wkly 29 L/wk No Reference Range Provided - November 03, 2023 Kt/V, Residual 2.06 No Reference Ran ge Provided - November 03, 2023 PNA 72 g/day No Reference Ran ge Provided - November 03, 2023 Infectious Diseases Result Type Result Value Relevant Referen ce Range Interpretation Date Hep B Surface Ab (anti-HBs) 451 mIU/mL No Reference Range Provided - November 03, 2023 DIALYSIS PRESCRIPTION CCPD Data Element Value Order Date/Time September 11, 2023 Frequency 6X Week Treatment Days [facility] Dialysis Machine [place] Estimated Dry Weight 77 kg Calcium Content in Bag (mEq/L) 2.5 mEq/L Magnesium Content in Bag (mEq/L) 0.5 mEq /L Dextrose Content in Bag % 1.5; 2.5; 4.25 % Number of Cycler Exchanges 3 Fill Volume 1500 mL Total Cycler Therapy Volume 4500 mL Total Cycler Therapy Time 330 min Average Dwell Time 90 min Number of Daytime Exchanges 0 Dialysis Access Peritoneal Dialysis- PD Catheter-Double Cuff Coiled, Right Upper Quadrant of Abdomen Access Placed on August 16, 2021 IMMUNIZATIONS Vaccine Date Dose Route Status Flu Vaccine - Flublok Quadrivalent May 31, 2023 0.5 mL Intramuscular Completed TRANSPLANT WAITLIST STATUS No Information on Transplant Waitlist Status ADVANCE DIRECTIVES Directive Description Ordered By Effective Date Resuscitation status Full Code Sebastian Charles Sep 21, 2023 DIALYSIS TREATMENTS (CAPD/CCPD treatments include self-reported information entered by the patient and may not contain the complete representation of a treatment.) CCPD-[facility] Date Exchanges Fill Volume Exchange Solution Dialysis Access Meds-entered by patient December 07, 2023 1 of 1 - Dextrose 2.5% Peritoneal Dialysis-PD Catheter-Double Cuff Coiled, Right Upper Quadrant of Abdomen Access Placed on August 16, 2021 - Vitals Time Weight BP Heart Rate Temperature Blood Sugar December 07, 2023 (AM) 79.37 kg 115/70 mmHg 79 beats per minut e 97.2 deg. F - CCPD-[facility] Date Exchanges Fill Volume Exchange Solution Dialysis Access Meds-entered by patient December 06, 2023 1 of 1 - Dextrose 2.5% Peritoneal Dialysis-PD Catheter-Double Cuff Coiled, Right Upper Quadrant of Abdomen Access Placed on August 16, 2021 - Vitals Time Weight BP Heart Rate Temperature Blood Sugar December 06, 2023 (AM) 79.0 kg 113/72 mmHg 78 beats per minut e 97.0 deg. F - CCPD-[facility] Date Exchanges Fill Volume Exchange Solution Dialysis Access Meds-entered by patient December 05, 2023 1 of 1 - Dextrose 2.5% Peritoneal Dialysis-PD Catheter-Double Cuff Coiled, Right Upper Quadrant of Abdomen Access Placed on August 16, 2021 - Vitals Time Weight BP Heart Rate Temperature Blood Sugar December 05, 2023 (AM) 79.18 kg 116/64 mmHg 84 beats per minut e 97.3 deg. F -
--- OUTSIDE RECORDS SUMMARY | 2023-12-07 10:05 | XMS_ITS | Clinical Summary ---
Author Name Unknown Organization [facility] Address [place], [place] [address] Care Team Providers Care Grease Packer Name Role Phone Kush Doran MD Primary Care Provider Viki Abarca MD Unavailable [phone] Allergies Active Allergy Reactions Criticality Noted Date Comments Sucralfate Other - Describe In Comment Field 06/01/2022 Aluminum toxicity Furosemide *Unknown 02/19/2020 On Torsemide Unlisted Allergen (Include Detail In Comments) Hives 04/15/2019 Breaks out in hives with city water---certain additives, but unsure which. Drinks water bottles only. Propafenone Other - Describe In Comment Field 02/19/2020 Caused fluid around his heart per pt Carbamazepine Intolerance-Can't Take Per patient, it dropped his WBC significantly Medications Medication Sig Dispensed Refills Start Date End Date Status calcitrioL (ROCALTROL) 0.25 mcg capsuleIndications:Seco ndary renal hyperparathyroidism (HC) Take three times a week on [facility]'s 36 capsule. 3 2 Active Dialyvite 100-1 mg tab Take 1 Tablet by mouth at bedtime. 2 Active docusate (Colace) 100 mg capsule Take 100 mg by mouth once daily in the evening. Active famotidine (PEPCID) 20 mg tablet Take 1 Tablet by mouth once daily. 2 Active cholecalciferol, Vitamin D3, 2,000 unit tablet Take 1 Tablet by mouth. 3 Active gentamicin 0.1% topical 0.1 % cream APPLY SMALL AMOUNT TO SITE EVERY DAY Active triamcinolone (ARISTOCORT; KENALOG) 0.1 % cream APPLY 1-2X DAILY TO ITCHY AREAS ON BODY FOR UP TO 2 WEEKS AT A TIME REPEAT NEEDED FOR FLARES 3 Active pantoprazole (PROTONIX) 40 mg delayed-release tabletIndications:Gastr ointestinal hemorrhage with hematemesis TAKE 1 TABLET BY MOUTH TWICE DAILY BEFORE MEALS 200 Tablet 2 3 Active torsemide (DEMADEX) 20 mg tabletIndications:CKD (chronic kidney disease) stage 4, GFR 15-29 ml/min (HC) TAKE 1 TABLET BY MOUTH ONCE DAILY 100 Tablet 2 3 Active CPAPIndications:ELENI (obstructive sleep apnea),Dry mouth CPAP machine for home use at pressure: [...] Need: 99 months, Frequency of use: Daily 1 Each 11 3 Active allopurinoL (ZYLOPRIM) 100 mg tabletIndications:Gout, unspecified cause, unspecified chronicity, unspecified site TAKE 1 TABLET BY MOUTH ONCE DAILY 100 Tablet 2 4 Active amoxicillin (AMOXIL) 500 mg capsuleIndications:Need for SBE (subacute bacterial endocarditis) prophylaxis TAKE 4 CAPSULES BY MOUTH 1 HOUR BEFORE DENTAL APPOINTMENT 12 Capsule 1 4 Active apixaban (ELIQUIS) 2.5 mg tabletIndications:Parox ysmal atrial fibrillation (HC) Take 1 Tablet (2.5 mg) by mouth two times daily. 60 Tablet 4 Active metoprolol tartrate (LOPRESSOR) 25 mg tabletIndications:Cardi ovascular symptoms Take 0.5 Tablets (12.5 mg) by mouth two times daily. 90 Tablet 3 4 Active metoprolol tartrate (LOPRESSOR) 25 mg tabletIndications:Cardi ovascular symptoms Take 0.5 Tablets (12.5 mg) by mouth two times daily. 2 11/27/19 24 Discontin ued(Reord er (E-cancel not sent)) nystatin (MYCOSTATIN) 100,000 unit/mL suspension Take 5 mL by mouth. 2 12/01/19 24 Discontin ued(*Med complete/ Regimen complete/ Level of care change) sucralfate (Carafate) 1 gram tablet Take 1 Tablet by mouth. 2 12/01/19 24 Discontin ued(*Med complete/ Regimen complete/ Level of care change) Hospital, Clinic, or Other Facility Administered Medication Ordered Dose Route Frequency Start Date End Date Status ferumoxytoL (FERAHEME) 510 mg/17 mL (30 mg/mL) injection 510 mgIndications:anemia in chronic kidney disease 510 mg IV SELECTION NOT AVAILABLE 04/29/2022 Active Active Problems Problem Noted Date Diagnosed Date Watchman left atrial appendage closure device 10/19/2023 GIB (gastrointestinal bleeding) 05/13/2022 Idiopathic esophageal varices with bleeding 09/2021 Coffee ground emesis 04/14/2022 Trapped lung; Right w/ chronic effusion. 022 Empyema, right (HC): tap 300ml 2021. Cx neg ative. 12/14/2021 Achalasia; discussed at [facility] idisciplinary conference 04/29/21. No further procedural intervention. 10/13/2020 Dysphagia 10/13/2020 ESRD (end stage renal disease) 03/30/2020 Hemoptysis; 11/202104/15/2019 Chronic systolic heart failure 04/10/2019 Anemia in stage 5 chronic ki dney disease, not on chronic dialysis 12/27/2018 Metabolic acidosis 12/27/2018 Sensorineural hearing loss, bilateral 07/04/2018 Chronic leukopenia 10/20/2016 Thrombocytopenia 10/20/2016 Adenomatous colon polyp 10/20/2016 Essential hypertension 07/28/2016 Paroxysmal atrial fibrillation 07/28/2016 LVH (left ventricular hypertrophy) 07/28/2016 Overview: Seen on transthoracic echocardiogram 08/05. Need for SBE (subacute bacterial endocarditis) p rophylaxis 06/29/2016 Overview: See 06/27/16 Amoxicillin refill ELENI 07/29/2003 AHI-17 FFM standard 04/10/2014 ACP (advance care planning) 08/12/2011 Gastric polyps 04/18/2011 Prediabetes 08/09/2010 Osteopenia 05/04/2010 Secondary hyperparathyroidism, renal 04/08/2010 Generalized anxiety disorder 03/28/2007 Gout, unspecified Resolved Problems Problem Noted Date Diagnosed Date Resolved Date Moderate protein-calorie malnutrition 04/22/2022 11/11/2022 Aspiration pneumonitis 04/27/202105/30 Esophageal dysmotility 10/13/202005/18 SOB (shortness of breath) 04/15/2019 Anticoagulation monitoring, INR range 2-3 [Z79.01] 10/16/2018 06/03/2022 Testicular atrophy 04/13/2012 Plantar fasciitis 08/12/2011 04/13/2012 Other hyperparathyroidism 01/07/2010 CKD (chronic kidney disease) stage 4, GFR 15-29 ml/min 12/01/2009 05/06/2020 Neutropenia 12/01/2009 09/13/2016 Thrombocytopenia, unspecified 12/01/2009 09/13/2016 Health maintenance examination 02/02/2009 12/01/2009 Anemia, unspecified 02/02/2009 02/03/20 09 Leukopenia 08/21/2008 02/09/2018 Overview: Dr. Perez and marrow bx 2016. No dysplasia. ?med effect or minor hypersplenism. No changes needed. Kidney transplant ok if /when needed. End stage renal disease 05/09/200811/19 RASH (apparent cause is city water) 05/10/2007 04/13/2012 Esophageal reflux 03/28/2007 05/18/2021 Unspecified essential hypertension 03/28/2007 07/28/2016 Intracranial abscess 012 Chronic kidney disease, unspecified 12/01/2009 Achalasia and cardiospasm Encounters Date Type Department Care Team Description 12/01/2023 1:15 PM CDT Preop Visit [facility] [address] [place] [address] Kush Doran MD Preoperative Exam (DOS: 12/07/2023, right knee surgery, Dr. 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 Office Visit [facility] [address] [facility] [place] [address] Kush Doran MD Post Procedure (Watchman device placement, [facility], 10/17/2023) 10/19/2023 Travel 09/22/2023 Refill [facility] [address] [place] [address] Kush Doran MD Refill Request (Allopurinol) from Last 3 Months Immunizations Name Administration Dates Next Due AMB Influenza, IIV4 PF (=>6 mos Flulaval,Fluzone Fluarix)(Flu Clinic Only) 06/13/2018 COVID-19 vaccine (Pfizer-Bio NTech 30mcg/0.3mL) 12YO+ BIVALENT PF, MDV 05/19/2022 COVID-19 vaccine (Pfizer-Bio NTech 30mcg/0.3mL) PF, MDV 05/18/2021,10/14/2020,09/23/2020 Hepatitis B (Adult) 12/22/2008,07/21/2008,2007 Hepatitis B (Peds) 06/19/2008 Influenza RIV4 (Age 18+ Year s) PRESERV FREE 05/31/2023 Influenza Virus, Unspecified 05/06/2020 Influenza, High-dose Inactivated 05/18/2016,05/22,05/16/2014 Influenza, IIV3 (Age 6-35 mos) 05/13/2011,2009 Influenza, IIV3 (Age >=3 years) 05/16/20 13,04/13/2012,05/13/2011,2009,07/18/2007,06/15/2006,07/12/2002 Influenza, Inactivated AIIV4 (Age 65+ Years) Preserv Free 05/19/2022,05/18/2021,05/06/2020 Influenza, Inactivated IIV3 (Age 65+ Years) Preserv Free 05/28/2019,05/09/2017 Pneumococcal Poly,23-Valent (Pneumovax) 02/02/2009 Pneumococcal conj 13-Valent (Prevnar 13) 11/05/2014 Td, Preservative Free (age > = 7 Years) 03/18/2008 Tdap 07/10/2014 Tuberculin (PPD) 07/21/2008 Zoster (Shingrix-RZV, recombinant) 02/14/2019, Zoster (Zostavax-ZVL, live) 04/08/2010 Family History Medical History Relation Name Comments Good Health Brother 1 Good Health Brother 2 Hyperlipidemia Father diet controll ed/diet controlled Psychiatric illness Father etoh Cancer Mother brain Good Health Sister 1 Good Health Sister 2 Anesthesia Problem No Family History Relation Name Status Comments Brother 1 Brother 2 Father (Age 32) alcholol r elated Mother cancer Sister 1 Sister 2 Social History Tobacco Use Types Packs/Day Years Used Date Smoking Tobacco: Former Cigarettes 0.5 7 1 960 - 1967 Smokeless Tobacco: Never Tobacco Cessation:Counseling Given: No Comments:Quit over 50 years ago. Alcohol Use Standard Drinks/Week Comments Not Currently 0 (1 standard drink = 0.6 oz pur e alcohol) PHQ-2 Answer Date Recorded PHQ-2 TOTAL SCORE 0 05/30/2022 Social Connections Answer Date Recorded Frequency of Communication with Friends and Fami ly 0 04/13/2023 Financial Resource Strain Answer Date R ecorded Difficulty of Paying Living Expenses 3 04/13/2023 Difficulty of Paying Living Expenses Not on file 04/13/2023 Food Insecurity Answer Date Recorded Worried About Running Out of Food in the Last Ye ar 1 04/13/2023 Transportation Needs Answer Date Record ed Lack of Transportation (Medical) 1 04/13/2023 Housing Stability Answer Date Recorded Unable to Pay for Housing in the Last Year 1 04/13/2023 Sex and Gender Information Value Date Recorded Sex Assigned at Not on file Gender Identity Not on file Sexual Orientation Not on file Obstetrics History Last Filed Vital Signs Vital Sign Reading Time Taken Comments Blood Pressure 120/73 12/01/2023 1:08 PM CDT Pulse 75 12/01/2023 1:08 PM CDT Temperature 36.7 ??C (98 ??F) 09/04/2023 11:28 AM [employer] 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 Respiratory Rate 14 04/13/2023 4:03 PM CDT Oxygen Saturation 100% 12/01/2023 1:08 PM CDT Inhaled Oxygen Concentration - - Weight 81 kg (178 lb 9.6 oz) 12/01/2023 1:08 PM CDT Height 172.7 cm (5' 8) 12/01/2023 1:08 PM CDT Body Mass Index 27.16 12/01/2023 1:08 PM CDT Plan of Treatment Upcoming Encounters Date Type Department Care Team (Late st Contact Info) Description 01/01/2024 8:00 AM CDT Office Visit [facility] [address] [place] [address] Florian Villalobos MD [address] [place] [address] Health Maintenance Due Date Last Done Comments COVID-19 vaccine series ( season) 2023 05/19/2022, 05/18/2021, 10/14/2020, Additional history exists Medicare Wellness for age 65+ 05/31/2023, 05/28/2021, 03/30/2020, Additional history exists Depression screening for age 12+ 06/02/2023 06/02/2022, 05/30/2022, 05/30/2022, Additional history exists Influenza for age 65+ 04/21/2024 05/31/2023 , 05/19/2022, 05/18/2021, Additional history exists Tetanus booster 07/10/2024 07/10/2014, 03/18/2008 BMI (ht and wt on same day) for age 18+ 11/30/2024 12/01/2023, 08/15/2023, 06/08/2022, Additional history exists Tdap Completed 07/10/2014 Pneumococcal series for age 65+ Completed 5, 02/02/2009 Zoster (shingles) series for age 50+ Completed 02/14/2019, 12/11/2018, 04/08/2010 Medical Devices Implanted Type Area Travel Ot Device Identifier Shelf Expiration Date Model / Serial / Lot Cath Dial Adlt Std Merit Classic Peritoneal Perc Implanted:Qty: 1 on 08/16/2021 by Clayton Diaz MD at [facility] N/A: Abdomen 05/14/2024 -[id number] / / Description:CATH DIAL ADLT S TD MERIT CLASSIC PERITONEAL PERC Procedures Procedure Name Priority Date/Time Associated Diagnosis Comments CBC W PLT NO DIFF Routine 12/01/2023 1:5 7 PM CDT Preop examination BASIC METABOLIC PANEL Routine 12/01/2023 1:57 PM CDT Preop examination SCAN-MRI INTERPRETATION 11/02/2023 12:00 AM CDT from Last 3 Months Results * (ABNORMAL) CBC W PLT NO DIFF (12/01/2023 1:57 PM CDT) WHITE BLOOD COUNT 5.8 4.5 - 11.0 thou/cu mm 12/01/2023 2:10 PM CDT [facility] RED BLOOD COUNT 3.66(L) 4.30 - 5.90 mil/cu mm 12/01/2023 2:10 PM CDT [facility] HEMOGLOBIN 12.2(L) 13.5 - 17.5 g/dL 12/01/2023 2:10 PM CDT [facility] HEMATOCRIT 37.2 37.0 - 53.0 % 12/01/2023 2:10 PM CDT [facility] MCV 102(H) 80 - 100 fL 12/01/2023 2:10 PM CDT [facility] MCH 33.3 26.0 - 34.0 pg 12/01/2023 2:10 PM CDT [facility] MCHC 32.8 32.0 - 36.0 g/dL 12/01/2023 2:10 PM CDT [facility] RDW 13.1 11.5 - 15.5 % 12/01/2023 2:10 PM CDT [facility] PLATELET COUNT 140 140 - 440 thou/cu mm 12/01/2023 2:10 PM CDT [facility] MPV 9.0 6.5 - 11.0 fL 12/01/2023 2:10 PM CDT [facility] Blood BLOOD SPECIMEN / Unknown Venipuncture / Unknown 12/01/2023 1:57 PM CDT 12/01/2023 1:58 PM CDT Kush Doran MD HEMATOLOGY [facility] [address] [place] [address], * (ABNORMAL) BASIC METABOLIC PANEL (12/01/2023 1:57 PM CDT) SODIUM 143 136 - 145 mmol/L 12/01/2023 9:00 PM CDT [facility] POTASSIUM 3.5 3.5 - 5.1 mmol/L 12/01/2023 9:00 PM CDT [facility] CHLORIDE 105 98 - 107 mmol/L 12/01/2023 9:00 PM CDT [facility] CO2,TOTAL 27 22 - 29 mmol/L 12/01/2023 9:00 PM CDT [facility] ANION GAP 11 5 - 18 12/01/2023 9:00 PM T [facility] GLUCOSE 106(H) 70 - 99 mg/dL 12/01/2023 9:00 PM T [facility] CALCIUM 8.8 8.8 - 10.2 mg/dL 12/01/2023 9:00 PM T [facility] BUN 45(H) 8 - 23 mg/dL 12/01/2023 9:00 PM T [facility] CREATININE 4.05(H) 0.70 - 1.20 mg/dL 12/01/2023 9:00 PM T [facility] BUN/CREAT RATIO 11 10 - 20 9:00 PM CDT [facility] eGFR 14(L) >90 mL/min/1.7 3m2 12/01/2023 9:00 PM CDT [facility] Comment:As of 2021, eG FR is calculated by the CKD-EPI creatinine equation without race adjustment. ??eGFR can be influenced by muscle mass, exercise, and diet. ??The reported eGFR is an estimation only and is only applicable if the renal function is stable. Blood BLOOD SPECIMEN / Unknown Venipuncture / Unknown 12/01/2023 1:57 PM CDT 12/01/2023 1:58 PM CDT Kush Doran MD CHEMISTRY [facility] [address] [place] [id number], * SCAN-MRI INTERPRETATION (11/02/2023 12:00 AM CDT) Anatomical Region Laterality Modality Other Scanner OTHER from Last 3 Months Advance Directives Documents on File Type Date Recorded Patient Research Anthropologist Expl anation Healthcare Directive 05/16/2018 3:06 PM HE ALTHCARE DIRECTIVE, [facility] LAW [facility]ICE, 09/14/2005 * Full Code (Latest Code Status on File) Date Activated Date Inactivated Comments 05/13/2022 11:52 AM 05/14/2022 3:20 PM Question Answer Comments Code Status Discussion: Reviewed Preferences * Full Code Date Activated Date Inactivated Comments 04/14/2022 4:59 PM 04/16/2022 4:20 PM Question Answer Comments Code Status Discussion: Reviewed Preferences * Full Code Date Activated Date Inactivated Comments 08/16/2021 7:38 AM 08/16/2021 3:13 PM Question Answer Comments Code Status Discussion: Not Discussed * Full Code Date Activated Date Inactivated Comments 12/03/2020 10:19 AM 12/04/2020 4:19 PM Question Answer Comments Code Status Discussion: Not Discussed * Full Code Date Activated Date Inactivated Comments 09/30/2020 3:29 AM 10/01/2020 5:57 PM Question Answer Comments Code Status Discussion: Discussed Care Teams Grease Packer Relationship Specialty Start Date End Date Kush oDran MD [address] [place] [id number] PCP - General Family Practice 01/31/17 Viki Abarca MD [address] [place] [id number] Gastroenterology 10/13/20
--- OUTSIDE RECORDS SUMMARY | 2023-12-07 10:05 | XMS_ITS | Continuity of Care Document ---
Author Name [facility] Organization [facility] Care Team Providers Care Transportation Equipment Painter Name Role Phone [facility] Unavailable Unavailable Problems Combined list of problems from Department of Defense and [facility] Affairs facilities. It does not include entries that were removed or entered in error. Problem Status Onset Date Problem Type Date of Resolution Comments Source Acute GI bleeding Active 05/13/20 22 Condition [facility] Anemia in end stage renal disease Active Condition [facility] Anxiety ([facility] [id number]) Active Condition [facility] Atrial fibrillation Active Condition Nov 07, 2023 Entered By: MACIE ESCAMILLA Comment: Watchman device placed 09/2023 [facility] CITC Primary Care Active Condition Oc t 2021 Entered By: MARILYN ROBINS Comment: Community Care Primary: Dr. Mik Doran, [place] [address]. [phone] . [facility] Congestive heart failure Active Condition [facility] Dysphagia Active Condition [facility] Empyema Active Condition [facility] End-stage renal disease Active Condition [facility] Esophageal varices Active [place] [facility] Ex-tobacco user [facility] Gout ([facility] [id number]) [place] [facility] Hemoptysis Active Condition [facility] Hiatal hernia [facility] History of polyp of colon Active Condition [facility] Impaired hearing Active Condition [facility] Leukopenia Active Condition [facility] Long-term current use of anticoagulant Active Condition Jun 10, 2022 Entered By: MARILYN ROBINS Comment: Indication: AF. [facility] Malnutrition [facility] Osteopenia Active Condition Jun 10 Entered By: MARILYN ROBINS Comment: 05.31.2022 DXA. [facility] Stricture of esophagus Active Condition [facility] Thrombocytopenia [facility] Diagnosis: ICD-10-CM Z01.00 Encounter for exam of eyes and vision w/o abnormal findings Active Diagnosis [facility] Medications Combined list of outpatient medications from Department of [facility] and [facility] facilities.Medications provided include 1) outpatient medications from the last 15 months, and 2) patient-reported medications. Medication Details Route Status Patient Instructions Prescription Expires Prescription Number Last Dispense Date Ordering Provider Order Date Order Qty Source ALLOPURINOL 100MG TAB TAKE ONE TABLET BY MOUTH EVERY DAY ORALLY ACTIVE ELENITA ROBINS 2021 [facility] CALCITRIOL 0.25MCG CAP TAKE 1 CAPSULE BY MOUTH ORALLY ACTIVE ELENITA ROBINS 2021 [facility] DIALYVITE TAB TAKE ONE TABLET BY MOUTH AT BEDTIME ORALLY ACTIVE ELENITA ROBINS 2021 [facility] DOCUSATE NA 100MG CAP TAKE 1 CAPSULE BY MOUTH PRN ORALLY ACTIVE ELENITA ROBINS 2021 [facility] METOPROLOL TARTRATE 50MG TAB TAKE ONE-HALF TABLET BY MOUTH TWICE A DAY ORALLY ACTIVE ELENITA ROBINS 2021 [facility] ONDANSETRON HCL 4MG TAB TAKE ONE TABLET BY MOUTH EVERY 6 HOURS NEEDED ORALLY ACTIVE ELENITA ROBINS 2021 [facility] PANTOPRAZOL E NA 40MG TAB,EC TAKE ONE TABLET BY MOUTH EVERY DAY ORALLY ACTIVE ELENITA ROBINS 2021 [facility] SUCRALFATE 500MG/5ML SUSP,ORAL TAKE 2 TEASPOON SFUL BY MOUTH EVERY 6 HOURS ORALLY ACTIVE ELENITA ROBINS 2021 [facility] TORSEMIDE 20MG TAB TAKE ONE TABLET BY MOUTH EVERY DAY ORALLY ACTIVE ELENITA ROBINS 2021 [facility] Allergies, Adverse Reactions, Alerts Combined list of allergies from Department of [facility] and [facility] facilities. It does not include entries that were removed or entered in error. Substance Category Reaction Severity Reaction type Status Date Reported Comments Source CARBAMAZEPINE Propensity to adverse reactions to drug (finding) active 2 [facility] FUROSEMIDE Propensity to adverse reactions to drug (finding) active 2 [facility] PROPAFENONE Propensity to adverse reactions to drug (finding) active 2 [facility] SUCRALFATE Propensity to adverse reactions to drug (finding) active 2 [facility] Immunizations Combined list of available immunizations from the Department of [facility] and [facility] facilities. Immunization Series Date Given Administered By Site Reaction Lot Number CVX Code Drug Department Head [employer] Or [employer] Status Comments Source COVID-19 (PFIZER), MRNA, LNP-S, PF, 30 MCG/0.3 ML DOSE 2 2020 208 complet ed PFR; [id number]; 1 [facility] COVID-19 (PFIZER), MRNA, LNP-S, PF, 30 MCG/0.3 ML DOSE 1 2020 208 complet ed PFR; [id number]; 1 [facility] Encounters Combined list of: 1) Encounters from Department of Veterans Affairs facilities going back up to thelast 18 months. 2) Encounters from the Department of [facility] facilities going back up to 280 months. Location Location Details Encounter Type Encounter Number Reason For Visit Attending Provider ADM Date DC Date Status Disposition [place] [facility] Outpatient Encounter [id number] [facility] Encounter [id number] [facility] R 05/17 [facility] [place] [facility] Outpatient Encounter [id number] [facility] Outpatient Encounter [id number] 06/08 [facility] [place] [facility] Outpatient Encounter [id number] ARNEL REYES 06/15 [facility] [place] [facility] Outpatient Encounter [id number] 06/20 [facility] IMG RTA DETCJ/MNTR DS STAFF [id number] Diagnos is: ICD-10- CM Z01.00 Encount er for exam of eyes and vision w/o abnorma l finding s
Cinthya HENDERSON E 04/12 [facility] [place] [facility] Outpatient Encounter [id number] Diagnos is: ICD-10- CM Z01.00 Encount er for exam of eyes and vision w/o abnorma l finding s
ALEX LUCERO 04/13 [facility] [place] [facility] Outpatient Encounter [id number] 04/13 [facility] [place] [facility] Outpatient Encounter [id number] Eulogio BRYAN 05/02 [facility] [place] [facility] Outpatient Encounter [id number] 05/03 [facility] [place] [facility] Outpatient Encounter [id number] Lyric SIMS E 05/03 [facility] [place] [facility] Outpatient Encounter [id number] [facility] [place] [facility] Outpatient Encounter [id number] 11/06 [facility] Social History Combined list of available smoking, tobacco, and other social history from Department of Defense and Veterans Affairs facilities. Social History Type Response Date Comment Sourc e This section is an empty social history section. DoD Plan of Care List of future care activities from Department of Veterans Affairs facilities. Additional future care activities may be listed in the Assessment and Plan section. Date/Time Care Activity Care Activity Detail Facili ty 04/11/2024 AMBULATORY - REHAB MEDICINE AMBULATORY - REHAB MEDICINE [facility]
--- OUTSIDE RECORDS SUMMARY | 2023-12-07 10:05 | XMS_ITS | Encounter Summary ---
Author Name [facility] Organization [facility] Address [address] [place] [address] Support Name Relationship Address Phone ELKEPaolaGABRIELECINTHYAET Next of Kin [address] [place] [address] SHAYY CARMONA Emergency Contact [address] [place] [address] Insurance Providers: All historical and current Section Date Range: From patient's date of to the date document was created. This section includes the names of all active insurance providers for the patient. Insurance Provider Type of Coverage Plan Name Start of Policy Coverage End of Policy Coverage Group Number Member ID Insurance Provider's Telephone Number Policy Knight's Name Patient's Relationship to Policy Knight MEDICARE (WNR) MEDICARE (M) PART A Nov 19, 2006 PART A [id number] [phone] Sandhya CARMONA PATIENT MEDICARE (WNR) MEDICARE (M) PART B Nov 19, 2006 PART B [id number] [phone] Sandhya CARMONA PATIENT Selected Encounter This section includes the information on record at OR for the Encounter. Date/Time Encounter Type Encounter Description Reason Pro vider Source Nov 07, 2023 12:37 PM Outpatient Encounter EVENT (HISTORICAL) IHE Encounter Template Text not used by [place] Plan of Treatment: Future Appointments (+ 6 months) and Future Tests (+/- 45 days) The Plan of Treatment section includes future care activities for the patient from all [place] treatmentfacilities. This section includes future appointments and future orders which are active, pending or scheduled. Future Appointments This section includes appointments that were scheduled to occur 6 months from the date of the Encounter, up to a maximum of 20 appointments. The data comes from all [place] treatment facilities. Appointment Date/Time Appointment Type Appointme nt Facility Name Apr 11, 2024 08:00 AM AMBULATORY - REHAB MEDICIN E [facility]
--- OUTSIDE RECORDS SUMMARY | 2023-12-07 10:05 | XMS_ITS | Encounter Summary ---
Author Name [facility] Organization [facility] Address [address] [place] [address] Support Name Relationship Address Phone ELKEPaolaGABRIELECINTHYAET Next of Kin [address] [place] [address] SHAYY CARMONA Emergency Contact [address] [place] [address] Insurance Providers: All historical and [...] PART A Nov 19, 2006 PART A [id number] [phone] Sandhya CARMONA PATIENT MEDICARE (WNR) MEDICARE (M) PART B Nov 19, 2006 PART B [id number] [phone] Sandhya CARMONA PATIENT Selected Encounter This section includes the information on record at [place] for the Encounter. Date/Time Encounter Type Encounter Description Reason Pro vider Source Oct 19, 2023 12:00 PM Outpatient Encounter EVENT (HISTORICAL) IHE Encounter [...] [place] treatment facilities. Appointment Date/Time Appointment Type Appointme nt Facility Name Apr 11, 2024 08:00 AM AMBULATORY - REHAB MEDICIN E [facility]
--- OUTSIDE RECORDS SUMMARY | 2023-12-07 10:05 | XMS_ITS | Encounter Summary ---
Author Name [facility] Organization [facility] Address [address] [place] [address] Support Name Relationship Address Phone ELKEPaolaGABRIELECINTHYAET Next of Kin [address] [place] [address] SHAYY CARMONA Emergency Contact [address] [place] [address] Insurance Providers: All historical and [...] PART A Nov 19, 2006 PART A [id number] [phone] Sandhya CARMONA PATIENT MEDICARE (WNR) MEDICARE (M) PART B Nov 19, 2006 PART B [id number] [phone] Sandhya CARMONA PATIENT Selected Encounter This section includes the information on record at [place] for the Encounter. Date/Time Encounter Type Encounter Description Reason Provider Source Apr 12, 2023 09:00 AM IMG SAMEER DETCGurpreet/DIVINATR DS STAFF OPHTHALMOLOGY ICD-10-CM Z01.00 Encounter for exam of eyes and vision w/o abnormal findings GABO HENDERSON Encounter Template Text not used by [place] Assessments - Encounter Diagnoses This section includes the primary and secondary diagnoses documented for the Encounter. Date/Time Primary/Secondary Diagnosis Diagnosis Name Provider Source Apr 12, 2023 09:45 AM PRIMARY Encounter for exam of eyes and vision w/o abnormal findings GABO HENDERSON [facility] Plan of Treatment: Future Appointments (+ 6 months) and Future Tests (+/- 45 days) The Plan of Treatment section includes future care activities for the patient from all [place] treatmentfacilities. This section includes future appointments and future orders which are active, pending or scheduled. Future Appointments This section includes appointments that were scheduled to occur 6 months from the date of the Encounter, up to a maximum of 20 appointments. The data comes from all [place] treatment facilities. Appointment Date/Time Appointment Type Appointme nt Facility Name May 31, 2023 11:11 AM AMBULATORY - [facility] Encounter Notes: All associated encounter notes This section contains the clinical notes associated to the Encounter. Date/Time Encounter Note(s) Provider Source Apr 12, 2023 09:09 AM TELEHEALTH NOTE: LOCAL TITLE: EYE TECS BENEFITS ANALYST STANDARD TITLE: TELEHEALTH NOTE DATE OF NOTE: APR 12, 2023@09:09 ENTRY DATE: APR 12, 2023@09:09:41 AUTHOR: GABO HENDERSON COSIGNER: URGENCY: STATUS: COMPLETED [facility] ([facility]) Electrical Mechanic Note REBECCA CARMONA [id number] Telehealth Consent and Patient Identification Verification: Verified patient identity with 2 separate identifiers prior to the beginning of the visit: Yes Patient was informed that their information and images will be uploaded securely to the [place] computer system and sent to be remotely interpreted by an eye provider. Recommendations/findings will be conveyed to them via phone call, video chat, and/or letter. Yes Patient verbalized understanding and agreed to participate in the TECS telemedicine eye exam today. Yes TECS Visit Type: Screening and Vision Assessment: Program Exclusions: - Sudden (1 week or less) decrease in vision in either eye - Sudden onset of significant pain (greater than 8 out of 10) in either eye - Sudden (1 week or less) onset of increased light sensitivity in either eye. - Sudden (1 week or less) of new floaters, flashing lights, or loss of peripheral vision - Sudden (1 week or less) onset of double vision that does not go away when one eye is covered - Recent (in last month) eye surgery or trauma No exclusions identified COMPREHENSIVE SCREEN: HISTORY: Chief Complaint: Patient presents for a TECS screening. History of Present Illness: Patient has been noticing trouble with fine print both at distance for reading scores and up close. He denies any discomfort in the eyes, but does notice he doesn't feel very good after reading for a long time. He denies any flashes of light or new floaters. Last Eye Exam: 2-3 years ago Location of last eye exam: Outside of [place] System TECS HISTORY & REVIEW OF SYSTEMS Decrease in vision Gradual- OU for Month(s) DIABETES HISTORY: The patient does NOT have diabetes EYE DISEASE HISTORY: EYE DISEASE(S): Anterior Segment/Cornea: Pseudophakia - OU PROCEDURE HISTORY: Cataract Surgery: With IOL - OU TRAUMA HISTORY: No history of ocular trauma FAMILY HISTORY No family history of glaucoma, macular degeneration, or blindness. SOCIAL HISTORY: Not actively smoking EYE MEDICATION(S): No Current Eye Medications REFRACTION AND VISION: Wearing Rx (WRx): OD: -1.00+1.87c168 +2.50 OS: -1.00+1.00x10 +2.50 Current Style: PAL Current Glasses Condition: Good condition/Not damaged WRx VA: OD: 20/50-1+1 PH 20/30 OS: 20/25-2 Manifest Refraction (MRx): OD: -1.25+1.50x20 +2.50 OS: -0.50+1.25x10 +2.50 Final MRx VA: OD: 20/20 OS: 20/20-1 Final MRx: OD: -1.25+1.50x20 +2.50 OS: -0.50+1.25x10 +2.50 Extraocular Movement, Confrontation Visual Morales, Amsler Grid and Color Vision: Extraocular Movement: OU: Full Confrontation Visual Field: OU: Full PACHYMETRY: Pachymetry Past Results: No data available PACHYMETRY OD: 615 OS: 609 INTRAOCULAR PRESSURE (IOP): Method: Date/Time: Mar@09:23 Rebound Tonometer OD: 12 OS: 10 PUPILS/ANTERIOR CHAMBER (AC) Penlight or slit lamp (if available) exam unremarkable Pupils are equal, round, and reactive to light No afferent defect Pupils are dilated - Side effects of dilation medication discussed, patient stated clear understanding, and patient consented to dilation. - Patient advised not to drive if they feel they have any symptoms which could affect their ability to drive safely. - Patient advised not to engage in any activities which could put themselves or others at risk if they feel they have any symptoms which could affect their ability to perform those activities safely. - Post-mydriatic glasses discussed and dispensed to reduce light sensitivity and increase comfort in bright sunlight. - Patient instructed to report to Eye Clinic or Emergency Room IMMEDIATELY if severe eye pain, facial pain, loss of vision or cloudy vision, severe headaches, or nausea occurs. Medication: 1% Tropicamide, 0.5% Proparacaine Date/Time: Mar@09:24 Which Eye? OD How many drops? 1 ea OS How many drops? 1 ea IMAGING/TESTING: Fundus Photographs were done at this encounter CATARACT EVALUATION/COMMUNITY CARE/VOICEMAIL/HANDOUTS: Cataract surgery evaluation is not applicable for this patient The patient IS willing to go to community care if applicable Per , okay to leave message regarding results and plan of care. Telephone number and address verified. Yes CONSULT ORDERS: Patient communication preferences Best Contact Number: Voicemail set up: Yes Preferred Contact Method:* Patient prefers results letter to be mailed, phone call only if necessary for questions, concerns, or abnormal exam results Appendix (abbreviations): AC (Anterior Chamber); AREDS (Age Related Eye Disease Study); ARX (Auto Refraction); BID (Two Times Daily); C:D (Cup-to-Disc); CIC (Care In The Community); ENGINEERING WRITER (Cyclophotocoagulation); CSME (Clinically Significant Macular Edema); DFE (Dilated Fundus Exam); Dorz/Timol (Dorzolamide/Timolol); DSEK (Descemet's Stripping Endothelial Keratoplasty); FAF (Fundus Autofluorescence); F/U (Follow up); GCC (Ganglion Cell Complex); Gonio (Gonioscopy); H/O (History Of); HTN (Hypertension); HVF (Ball Visual Field); IOL (Intraocular Lens); IOP (Intraocular Pressure); K (Keratometry); LASIK (Laser-Assisted In Situ Keratomileusis); MD (Mean Deviation when used with visual field); dB (decibels); MRx (Manifest Refraction); NeoPolyDex/Erythro (Neomycin Polymyxin B Dexamethasone/Erythromycin); NFL (Nerve Fiber Layer); NPDR (Nonproliferative Diabetic Retinopathy); OCT (Optical Coherence Tomography); OD (Right Eye); OS (Left Eye); OU (Both Eyes); PDR (Proliferative Diabetic Retinopathy); PFATs (Preservative Free Artificial Tears); RK (Radial Keratotomy); RNFL (Retinal Nerve Fiber Layer); RTC (Return To Clinic); scVA (Visual Acuity Without Correction/Glasses); CASSIDY ([place]uan Interactive Threshold Algorithm); TID (Three Times Daily); UV (Ultraviolet); VA (Visual Acuity); WRx (Prescription glasses currently worn); WRx VA (Visual Acuity With Prescription Glasses); YAG (Yttrium Aluminum [place]) /paola/ GABO HENDERSON OPHTHALMOLOGY RON BENEFITS ANALYST Signed: 04/12/2023 09:45 GABO HENDERSON [facility]
--- OUTSIDE RECORDS SUMMARY | 2023-12-07 10:06 | XMS_ITS | Encounter Summary ---
Author Name Unknown Organization [facility] Address [address] [place] [address] Care Team Providers Care Loop Drier Operator Name Role Phone Elsewhere, Pcp Primary Care Provider Unavailabl e Reason for Visit * Reason Onset Date Comments Pre-visit Intake 11/24/2023 Encounter Details Date Type Department Care Team (Latest Contact Info) Description 11/24/2023 9:30 AM CDT Clinical Communication Virtual Review in [place], [place] [address] [place], [place] [address] Pre-visit Intake Social History Tobacco Use Types Packs/Day Years Used Date Smoking Tobacco: Never Smokeless Tobacco: Never Tobacco Cessation:Counseling Given: Not Answered Alcohol Use Standard Drinks/Week Comments Never 0 (1 standard drink = 0.6 oz pur e alcohol) Humiliation, Afraid, Rape, and Kick questionnair e Answer Date Recorded Within the last year, have y ou been afraid of your partner or ex-partner? No 04/11/2022 Within the last year, have y ou been humiliated or emotionally abused in other ways by your partner or ex-partner? No Within the last year, have y ou been kicked, hit, slapped, or otherwise physically hurt by your partner or ex-partner? No 04/11/2022 Within the last year, have y ou been raped or forced to have any kind of sexual activity by your partner or ex-partner? No 04/11/2022 Social Connection and Isolat ion Panel [NHANES] Answer Date Recorded In a typical week, how many times do you talk on the phone with family, friends, or neighbors? Patient declined 04/11/2022 How often do you get togethe r with friends or relatives? Patient declined 04/11/2022 How often do you attend chur ch or hinduism services? More than 4 times per year 04/11/2022 Do you belong to any clubs o r organizations such as mosque groups, unions, fraternal or athletic groups, or school groups? Yes 04/11/2022 How often do you attend meet ings of the clubs or organizations you belong to? Patient declined 04/11/2022 Are you , , di vorced, , never , or living with a partner? 04/11/2022 AUDIT-C Answer Date Recorded Q1: How often do you have a drink containing alc ohol? Never 04/11/2022 Average Number of Drinks Not on file Frequency of Binge Drinking Not on file 03/22 Overall Financial Resource Strain (CARDIA) Answe r Date Recorded How hard is it for you to pa y for the very basics like food, housing, medical care, and heating? Not hard at all 05/13/2023 [facility] - Occupational Stress Questionnaire Answer Date Recorded Do you feel stress - tense, restless, nervous, or anxious, or unable to sleep at night because your mind is troubled all the time - these days? Only a little 04/11/2022 Exercise Vital Sign Answer Date Recorde d On average, how many days pe r week do you engage in moderate to strenuous exercise (like a brisk walk)? 6 days 05/13/2023 On average, how many minutes do you engage in exercise at this level? 120 min 05/13/2023 Hunger Vital Sign Answer Date Recorded Within the past 12 months, y ou worried that your food would run out before you got the money to buy more. Never true 05/13/20 23 Within the past 12 months, t he food you bought just didn't last and you didn't have money to get more. Never true 05/13/2023 PRAPARE - Transportation Answer Date Re corded In the past 12 months, has l ack of transportation kept you from medical appointments or from getting medications? No 04/22 In the past 12 months, has l ack of transportation kept you from meetings, work, or from getting things needed for daily living? No 05/13/2023 Nutrition Answer Date Recorded Nutrition: EVOO Fat Source No 05/13 On average, how many serving s of fruits and vegetables do you eat per day (serving size is equal to 1 cup or approximately the size of a tennis ball)? 0-2 05/13/2023 Dental Answer Date Recorded Dental: Regular Dentist Yes 04/11/20 Employment Answer Date Recorded Employment status Retired 05/13/2023 Housing Stability Answer Date Recorded What is your living situation today? I have a [facility] place to live 05/13/2023 Education Answer Date Recorded What is the highest level of school you have completed or the highest degree you have received? 12th grade 02/14/2019 Sex and Gender Information Value Date Recorded Sex Assigned at Male 04/11/2022 12:05 PM CDT Gender Identity Male 04/11/2022 12:05 PM CDT Sexual Orientation Straight 04/11/2022 12 :05 PM CDT documented as of this encounter Plan of Treatment Not on file documented as of this encounter Visit Diagnoses Not on filedocumented in this encounter Care Teams Loop Drier Operator Relationship Specialty Start Date End Date Elsewhere, Pcp PCP - General Internal Medicine 11/24/23 documented as of this encounter
--- OUTSIDE RECORDS SUMMARY | 2023-12-07 10:06 | XMS_ITS ---
Author Name Unknown Organization [facility] Address [address] [place] [address] Care Team Providers Care Atv Mechanic Name Role Phone Elsewhere, Pcp Primary Care Provider Unavailabl e Procedures Procedure Name Priority Date/Time Associated Diagnosis Comments EXTI BASIC METABOLIC PANEL, S/P Routine 12/01/2023 1:57 PM CDT (JASON) 2D WITH COLOR, LIMITED DOPPLER AND CONTRAST Routine 11/27/2023 11:15 AM CDT Atrial Fibrillation Paroxysmal (HCC) CBC WITH DIFFERENTIAL, B Routine 11/27/2023 9:49 AM CDT Atrial Fibrillation Paroxysmal (HCC) CREATININE WITH EGFR, S/P Routine 11/27/2023 9:49 AM CDT Atrial Fibrillation Paroxysmal (HCC) ECHO TRANSESOPHAGEAL (JASON) - PROCEDURAL GUIDANCE Routine 10/17/2023 4:25 PM ROLLER SKATE REPAIRER Atrial Fibrillation Paroxysmal (HCC) HEART RHYTHM PROCEDURE Routine 4 2:19 PM ROLLER SKATE REPAIRER Atrial Fibrillation Paroxysmal (HCC) HEART RHYTHM PROCEDURE Routine 4 2:19 PM ROLLER SKATE REPAIRER Atrial Fibrillation Paroxysmal (HCC) ADULT OXYGEN THERAPY Routine 10/17/2023 2:00 PM ROLLER SKATE REPAIRER ADULT OXYGEN THERAPY Routine 10/17/2023 2:00 PM ROLLER SKATE REPAIRER ACT, POCT, B Routine 10/17/2023 1:38 PM ROLLER SKATE REPAIRER ACT, POCT, B Routine 10/17/2023 1:20 PM ROLLER SKATE REPAIRER LDA ANE ENDOTRACHEAL AIRWAY Routine 10/17/2023 12:19 PM ROLLER SKATE REPAIRER POTASSIUM, S/P Routine 10/17/2023 10:25 AM ROLLER SKATE REPAIRER ECG Routine 10/16/2023 3:35 PM ROLLER SKATE REPAIRER Atrial Fibrillation Paroxysmal (HCC) TYPE AND SCREEN Routine 10/16/2023 2:33 PM ROLLER SKATE REPAIRER Atrial Fibrillation Paroxysmal (HCC) PROTHROMBIN TIME (PT), P Routine 10/16/2023 2:33 PM ROLLER SKATE REPAIRER Atrial Fibrillation Paroxysmal (HCC) COMPREHENSIVE METABOLIC PANEL, S/P Routine 10/16/2023 2:33 PM ROLLER SKATE REPAIRER Atrial Fibrillation Paroxysmal (HCC) CBC WITH DIFFERENTIAL, B Routine 10/16/2023 2:33 PM ROLLER SKATE REPAIRER Atrial Fibrillation Paroxysmal (HCC) from Last 3 Months or Most Recently Relevant to Health Maintenance Allergies Active Allergy Reactions Criticality Noted Date Comments Carbamazepine Other (see comments) 02/14/2019 Other reaction(s): Adverse reaction Furosemide Other (see comments) 10/28/2020 Unknown, listed in Care Everywhere, also noted on Torsemide. Levetiracetam Other (see comments) 09/11/2002 Phenytoin Other (see comments) 09/11/2002 Propafenone Other (see comments) 10/28/2020 Caused fluid around his heart per pt, in care everywhere. Water Hives (Reselect Reaction) 12/01/2021 Reports hives from city water, (additives?), only drinks bottle water. Medications Medication Sig Dispensed Refills Start Date End Date Status allopurinol (ZYLOPRIM) 100 mg tablet Take 100 mg by mouth every morning. 11/09/2018 Active calcitRIOL (ROCALTROL) 0.25 mcg capsule Take 1 capsule by mouth 3 (three) times a week. Monday, Monday, Monday12/27/2018 Active metoprolol tartrate (LOPRESSOR) 25 mg tablet Take 12.5 mg by mouth 2 (two) times a day. Active multivitamin renal failure (DIALYVITE) 100-1 mg tablet Take 1 tablet by mouth daily with dinner. 30 tablet 12/08/2021 Active torsemide (DEMADEX) 20 mg tablet Take 1 tablet (20 mg total) by mouth daily. 12/12/2021 Active amoxicillin (AMOXIL) 500 mg capsule Take 4 capsules by mouth once as needed (Dental procedures). 05/30/2022 Active docusate sodium (COLACE) 100 mg capsule Take 100 mg by mouth daily. Active gentamicin (GARAMYCIN) 0.1 % cream Apply 1 Application topically as needed. 06/01/2022 Active pantoprazole (PROTONIX) 40 mg EC tablet Take 40 mg by mouth 2 (two) times a day before breakfast and dinner. 06/04/2022 Active cholecalciferol (VITAMIN D3) 50 mcg (2,000 Unit) tablet Take 1 tablet by mouth daily. 08/29/2022 Active triamcinolone (KENALOG) 0.1 % cream Apply 1 Application topically as needed for irritation. 09/20/2022 Active famotidine (PEPCID) 20 mg tablet TAKE 1 TABLET BY MOUTH AT BEDTIME 100 tablet 2 07/25/2023 Active sucralfate (CARAFATE) 100 mg/mL suspension Take 10 mL (1 g total) by mouth every 6 (six) hours as needed (If esophageal bleeding.). 420 mL 1 08/07/2023 Active apixaban (ELIQUIS) 2.5 mg tablet Take 1 tablet (2.5 mg total) by mouth 2 (two) times a day. 60 tablet 5 10/17/2023 04/14/2024 Active clopidogreL (PLAVIX) 75 mg tablet Take 1 tablet (75 mg total) by mouth daily. Start after Eliquis therapy completed and continue lifelong as tolerated. 90 tablet 3 04/17/2024 Active Active Problems Problem Noted Date Diagnosed Date Atrial Fibrillation Other Persistent 10/17/2023 Stenosis Aortic Valve Acquired 05/18/2023 Hemorrhage Gastrointestinal 06/05/2022 Shelter (Current) Anticoagulant Treatment 11/20 Hypertension And End Stage Renal Disease 022 Atelectasis 12/09/2021 Chronic Systolic (Congestive) Heart Failure 11/20 Gout 12/09/2021 Hematemesis 12/09/2021 Hypoalbuminemia 12/09/2021 Bundle Branch Block Left 12/09/2021 Empyema Pleural 2021 Achalasia 2021 Dialysis Peritoneal Status 2021 Atrial Fibrillation Paroxysmal 2021 Elevated Alkaline Phosphatase 2021 Anemia In Chronic Kidney Disease 2021 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 Polyp Of Stomach And Duodenum 04/18/2011 Osteopenia 05/04/2010 Hyperparathyroidism Renal Secondary 04/08/2010 Anxiety Generalized Disorder 03/28/2007 Obstructive Sleep Apnea Adult 07/29/2003 Seizure Partial 09/11/2002 Immunizations Name Administration [...] often do you attend chur ch or orthodoxy services? More than 4 times per year 04/11/2022 Do you belong to any clubs o r organizations such as samaritan groups, unions, fraternal [...] and heating? Not hard at all 05/13/2023 [facility] - Occupational Stress Questionnaire Answer Date Recorded [...] your living situation today? I have a [facility] place to live 05/13/2023 Education Answer Date Recorded What is the highest level of school you have completed or the highest degree you have received? 12th grade 02/14/2019 Sex and Gender Information Value Date Recorded Sex Assigned at Male 04/11/2022 12:05 PM CDT Gender Identity Male 04/11/2022 12:05 PM CDT Sexual Orientation Straight 04/11/2022 12 :05 PM CDT Last Filed Vital Signs Vital Sign Reading Time Taken Comments Blood Pressure 110/73 11/27/2023 11:25 AM CDT Pulse 76 11/27/2023 11:25 AM CDT Temperature 36.6 ??C (97.9 ??F) 10/17/2023 10:[address] Respiratory Rate 15 11/27/2023 11:25 AM CDT Oxygen Saturation 97% 11/27/2023 11:25 AM CDT Inhaled Oxygen Concentration - - Weight 80.5 kg (177 lb 7.5 oz) 10/17/2023 10:05 AM ROLLER SKATE REPAIRER Height 172.5 cm (5' 7.91) 10/17/2023 10:[address] Body Mass Index 27.05 10/17/2023 10:05 AM ROLLER SKATE REPAIRER Results * (JASON) 2D WITH COLOR, LIMITED DOPPLER AND CONTRAST (11/27/2023 11:15 AM CDT) Ejection Fraction 60 [facility] Anatomical Region Laterality Modality Echocardiography 11/27/2023 10:1 1 AM CDT Impressions 11/27/2023 12:15 PM CDT Status post WATCHMAN left atrial appendage occlusion device placement. PRE- SEDATION ASSESSMENT & CONSENT (performed immediately prior to the start of the procedure): The goals, risks and alternatives to moderate sedation and the transesophageal echo were explained to the patient, questions were answered and consent was given to proceed. The physician reviewed the patient's history, medication list, allergies, and review of systems, and the findings as documented in the electronics tester and also performed a pertinent examination including a heart, airway and lung assessment. Mallampati Assessment: As documented in the RN pre-procedure assessment. Sedation plan: Transesophageal echo - moderate sedation. ASA physical status score: Class III. The patient's identity and all needed equipment were confirmed and a final confirmatory pause was performed by the team immediately prior to start. PROCEDURAL ECHO FINDINGS: Transesophageal echocardiogram performed at the request of the primary donor services technician. Adult probe inserted without difficulty. LEFT VENTRICLE:Normal left ventricular chamber size. Estimated left ventricular ejection fraction 60%. No regional wall motion abnormalities. RIGHT VENTRICLE:Normal right ventricular chamber size. Normal right ventricular systolic function. ATRIA:Enlarged left atrial size. The WATCHMAN left atrial appendage occlusion device is visualized and is well-expanded within the left atrial appendage. Spontaneous echo contrast identified in the left atrium. Left atrial appendage emptying velocity 23 cm/sec. No apparent leak between the left atrium and left atrial appendage. No left atrial appendage thrombus. Normal right atrial size. CARDIAC VALVES:Trileaflet aortic valve. Thickened aortic valve. Mild-moderate aortic valve regurgitation. Thickened mitral valve. Trivial mitral valve regurgitation. Normal pulmonary valve. Trivial pulmonary valve regurgitation. Thickened tricuspid valve. Moderate tricuspid valve regurgitation. 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 Normally connected pulmonary veins. Pulmonary artery bifurcation is normal. Normal superior vena cava. Agitated saline injection(s) performed during sedation. No mkagn-ua-iiny shunt at atrial level at rest or with Valsalva release ??(previously seen transseptal puncture not visualized on today's study). No intracardiac mass or thrombus identified. Small anterior pericardial effusion. PROCEDURE NOTES: Procedure performed with appropriate level of sedation. A trained independent observer assisted with monitoring the patient's level of consciousness and physiologic status throughout the procedure, see nursing documentation. The patient tolerated the sedation and procedure well and was released awake, alert, and in good condition. Transesophageal echocardiogram completed without complications. Transgastric images acquired. See Sedation Narrator or other pertinent record in [facility] for additional procedure and sedation information. Physician signature for procedural medications and patient discharge when DC criteria met. For the complete report, see the Order-Level Documents. Narrative 11/27/2023 12:15 PM CDT For the complete report, see the Order-Level Documents. Hemodynamics Heart Rate: 78 BPM Blood Pressure: 119 / 83 mmHg ECG: Atrial fibrillation Final Impressions 1. Status post WATCHMAN left atrial appendage occlusion device placement. 2. The WATCHMAN left atrial appendage occlusion device is visualized and is well-expanded within the left atrial appendage with no apparent left atrial appendage thrombus or leak between the left atrium and the left atrial appendage. Spontaneous echo contrast was identified within the left atrium with a left atrial appendage emptying velocity of 23 cm/sec. 3. Normal biventricular size and function. 4. Thickened aortic valve ??with mild aortic valve regurgitation and hiodwykm-le-zpcsrm aortic stenosis by visual estimate on 2D imaging (recommend transthoracic echocardiogram for further evaluation as clinically indicated). 5. Moderate tricuspid valve regurgitation. There is tricuspid prolapse. 6. Due to patient's achalasia, the descending aorta was not able to be well visualized on today's examination. 7. 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 8. Agitated saline injection(s) performed during sedation ??no apparent icoth-ru-novd shunting at the atrial level at rest or with Valsalva maneuver (previously seen transseptal atrial puncture not well visualized on today's examination). Procedure Note Desmond Flowers M.D. - 11/27/2023 For the complete report, see the Order-Level Documents. Hemodynamics Heart Rate: 78 BPM Blood Pressure: 119 / 83 mmHg ECG: Atrial fibrillation Final Impressions 1. Status post WATCHMAN left atrial appendage occlusion deviceplacement. 2. The WATCHMAN left atrial appendage occlusion device is visualized andis well-expanded within the left atrial appendage with no apparent leftatrial appendage thrombus or leak between the left atrium and the leftatrial appendage. Spontaneous echo contrast was identified within the leftatrium with a left atrial appendage emptying velocity of 23 cm/sec. 3. Normal biventricular size and function. 4. Thickened aortic valve with mild aortic valve regurgitation gwrjzjwswru-se-cpodtn aortic stenosis by visual estimate on 2D imaging(recommend transthoracic echocardiogram for further evaluation asclinically indicated). 5. Moderate tricuspid valve regurgitation. There is tricuspid prolapse. 6. Due to patient's achalasia, the descending aorta was not able to bewell visualized on today's examination. 7. 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 8. Agitated saline injection(s) performed during sedation no jxczqlzigbrrj-rs-kyun shunting at the atrial level at rest or with Valsalvamaneuver (previously seen transseptal atrial puncture not well visualizedon today's examination). Findings Status post WATCHMAN left atrial appendage occlusion device placement.PRE- SEDATION ASSESSMENT & CONSENT (performed immediately prior to thestart of the procedure): The goals, risks and alternatives to moderatesedation and the transesophageal echo were explained to the patient,questions were answered and consent was given to proceed. The physicianreviewed the patient's history, medication list, allergies, and review ofsystems, and the findings as documented in the electronics tester and alsoperformed a pertinent examination including a heart, airway and lungassessment. Mallampati Assessment: As documented in the RN pre-procedureassessment. Sedation plan: Transesophageal echo - moderate sedation. ASAphysical status score: Class III. The patient's identity and all neededequipment were confirmed and a final confirmatory pause was performed bythe team immediately prior to start. PROCEDURAL ECHO FINDINGS:Transesophageal echocardiogram performed at the request of the primaryservice nutrition consultant. Adult probe inserted without difficulty. LEFT VENTRICLE:Normal left ventricular chamber size. Estimated leftventricular ejection fraction 60%. No regional wall motionabnormalities. RIGHT VENTRICLE:Normal right ventricular chamber size. Normal rightventricular systolic function. ATRIA:Enlarged left atrial size. The WATCHMAN left atrial appendageocclusion device is visualized and is well-expanded within the left atrialappendage. Spontaneous echo contrast identified in the left atrium. Leftatrial appendage emptying velocity 23 cm/sec. No apparent leak between theleft atrium and left atrial appendage. No left atrial appendage thrombus.Normal right atrial size. CARDIAC VALVES:Trileaflet aortic valve. Thickened aortic valve.Mild-moderate aortic valve regurgitation. Thickened mitral valve. Trivialmitral valve regurgitation. Normal pulmonary valve. Trivial pulmonaryvalve regurgitation. Thickened tricuspid valve. Moderate tricuspid valveregurgitation. OTHER ECHO FINDINGS:Due to patient's achalasia, the descending aorta wasnot able to be well visualized on today's examination Complex, mobilenon-ulcerated atherosclerosis of the aortic arch. Normally connectedpulmonary veins. Pulmonary artery bifurcation is normal. Normal superiorvena cava. Agitated saline injection(s) performed during sedation. Bzbmyni-oo-jfxs shunt at atrial level at rest or with Valsalva release(previously seen transseptal puncture not visualized on today's study). Nointracardiac mass or thrombus identified. Small anterior pericardialeffusion. PROCEDURE NOTES: Procedure performed with appropriate level ofsedation. A trained independent observer assisted with monitoring thepatient's level of consciousness and physiologic status throughout theprocedure, see nursing documentation. The patient tolerated the sedationand procedure well and was released awake, alert, and in good condition.Transesophageal echocardiogram completed without complications.Transgastric images acquired. See Sedation Narrator or other pertinentrecord in [facility] for additional procedure and sedation information.Physician signature for procedural medications and patient discharge whenDC criteria met. For the complete report, see the Order-Level Documents. Sarina Miller P.A.-C., M.S. CV ECHO PROCEDURES * (ABNORMAL) CBC with Differential, Blood (11/27/2023 9:49 AM CDT) Only the most recent of2 resultswithin the time period is included. Hemoglobin 12.4(L) 13.2 - 16.6 g/dL 11/27/2023 10:53 AM CDT DTL Hematocrit 38.1(L) 38.3 - 48.6 % 11/27/2023 10:53 AM CDT DTL Erythrocytes 3.79(L) 4.35 - 5.65 x10(12)/L 11/27/2023 10:53 AM CDT DTL MCV 100.5(H) 78.2 - 97.9 fL 11/27/2023 10:53 AM CDT DTL RBC Distrib Width 12.7 11.8 - 14.5 % 11/27/2023 10:53 AM CDT DTL Platelet Count 152 135 - 317 x10(9)/L 11/27/2023 10:53 AM CDT DTL Leukocytes 5.6 3.4 - 9.6 x10(9)/L 11/27/2023 10:53 AM CDT DTL Neutrophils 3.79 1.56 - 6.45 x10(9)/L 11/27/2023 10:53 AM CDT DHPM Lymphocytes 0.36(L) 0.95 - 3.07 x10(9)/L 11/27/2023 10:53 AM CDT DTL Monocytes 0.51 0.26 - 0.81 x10(9)/L 11/27/2023 10:53 AM CDT DTL Eosinophils 0.83(H) 0.03 - 0.48 x10(9)/L 11/27/2023 10:53 AM CDT DTL Basophils 0.06 0.01 - 0.08 x10(9)/L 11/27/2023 10:53 AM CDT DTL Blood (Blood, Venous) 11/27/2023 9:49 AM CDT 11/27/2023 10:20 AM CDT Sarina Miller P.A.-C., M.S. LAB BLO OD ADD-ON [facility] [address] [place] [address], [facility] DTL [facility] [address] [place] [address] * (ABNORMAL) Creatinine with Estimated GFR (11/27/2023 9:49 AM CDT) Creatinine 4.46(H) 0.74 - 1.35 mg/dL 11/27/2023 11:16 AM CDT DTL Estimated GFR (eGFR) <15(L) >=60 mL/min/BSA 11/27/2023 11:16 AM CDT DTL Comment: Estimated GFR calculated using the 2020 CKD_EPI creatinine equation. Blood (Blood, Venous) 11/27/2023 9:49 AM CDT 11/27/2023 10:56 AM CDT Sarina Shah Angela Palmer MLizandro. LAB BLO OD ADD-ON [facility] [address] [place] [address], [place] DTL [facility] [address] [place] [address] * Echo Transesophageal (JASON) - Procedural Guidance (10/17/2023 4:25 PM ROLLER SKATE REPAIRER) Ejection Fraction 60 [facility] Anatomical Region Laterality Modality Other 10/17/2023 7:40 AM ROLLER SKATE REPAIRER Narrative 10/17/2023 2:35 PM ROLLER SKATE REPAIRER For the complete report, see the Order-Level Documents. Final Impressions 1. Echo performed in the EP Laboratory. 2. PRE-PROCEDURE 3. No left atrial appendage thrombus. Pre-Watchman CLAY ostium measurement by 3D- MPR: max 26 mm, min 16 mm, depth 29 mm. 4. Estimated left ventricular ejection fraction range 60% - 65%. 5. Moderate-severe calcific aortic valve stenosis at least by 2D imaging, but could be severe. Recommend formal TTE to evaluate/confirm. 6. Small anterior pericardial effusion. 7. PROCEDURE: 8. JASON imaging guidance of transseptal access to the left atrium with successful deployment of a WATCHMAN left atrial appendage occlusion device in the left atrial appendage. 9. 3D imaging was performed to evaluate left atrial appendage which could not be adequately assessed by 2D imaging. 10. POST-PROCEDURE 11. The WATCHMAN left atrial appendage occlusion device is visualized and is well-expanded within the left atrial appendage. 12. No apparent leak between the left atrium and left atrial appendage. 13. Unchanged pericardial effusion post-procedure (the effusion size is small). 14. Residual iatrogenic atrial septal defect with jtsf-nx-czrph shunt at the site of transseptal puncture. 15. The remaining findings are unchanged from the pre-procedural images. For the complete report, see the Order-Level Documents. Procedure Note Garcia Coffey M.B.B.S., Ph.D. - 10/17/2023 For the complete report, see the Order-Level Documents. Final Impressions 1. Echo performed in the EP Laboratory. 2. PRE-PROCEDURE 3. No left atrial appendage thrombus. Pre-Watchman CLAY ostium measurementby 3D- MPR: max 26 mm, min 16 mm, depth 29 mm. 4. Estimated left ventricular ejection fraction range 60% - 65%. 5. Moderate-severe calcific aortic valve stenosis at least by 2D imaging,but could be severe. Recommend formal TTE to evaluate/confirm. 6. Small anterior pericardial effusion. 7. PROCEDURE: 8. JASON imaging guidance of transseptal access to the left atrium withsuccessful deployment of a WATCHMAN left atrial appendage occlusion devicein the left atrial appendage. 9. 3D imaging was performed to evaluate left atrial appendage which couldnot be adequately assessed by 2D imaging. 10. POST-PROCEDURE 11. The WATCHMAN left atrial appendage occlusion device is visualized andis well-expanded within the left atrial appendage. 12. No apparent leak between the left atrium and left atrial appendage. 13. Unchanged pericardial effusion post-procedure (the effusion size issmall). 14. Residual iatrogenic atrial septal defect with rdtz-no-kgdpg shunt atthe site of transseptal puncture. 15. The remaining findings are unchanged from the pre-procedural images. For the complete report, see the Order-Level Documents. Radha Giles CV ECHO PROCEDURE S * CLAY CLOSURE W/ IMPLANT, TRANSESPOHAGEAL (JASON) ECHOCARDIOGRAM (10/17/2023 2:19 PM ROLLER SKATE REPAIRER) Anatomical Region Laterality Modality X-Ray Angiograph y 10/17/2023 1:01 PM ROLLER SKATE REPAIRER Narrative 10/22/2023 9:11 AM ROLLER SKATE REPAIRER For the complete report, see the Order-Level Documents. PROCEDURE TYPES 1. ??CLAY CLOSURE WITH IMPLANT ?? 2. ??TRANSESOPHAGEAL (JASON) ECHOCARDIOGRAM ?? PRE-PROCEDURE DIAGNOSIS 1. ??Atrial Fibrillation Paroxysmal (HCC) ?? HRS NOTE BRIEF HISTORY: Mr. Castro is an 82-year-old gentleman with paroxysmal atrial fibrillation, achalasia, end-stage renal disease on peritoneal dialysis and history of GI bleeding. ??Due to relative contraindication to long-term anticoagulation, he was referred for left atrial appendage occlusion. ??After a shared decision making consultation, the patient elected to proceed with a left atrial appendage occlusion. ??The patient was adamant that he does not wish to receive any contrast. ??Therefore, the procedure was performed under general anesthesia and JASON guidance given his inability to lay flat in view of his achalasia and desire to avoid contrast used. PROCEDURAL DETAILS: The patient proceeded to the laboratory in the fasting state. ??General anesthesia was administered. ??IV antibiotics were administered. ??Lidocaine was administered to the right femoral region. ??Vascular access was obtained in the right femoral vein using ultrasound guidance with the modified Seldinger technique. A 16 Angolan and 8 Angolan sheath were placed in situ. ?? Heparin bolus was administered maintaining an ACT of >300 seconds. ??Baseline JASON evaluation demonstrated a small anterior pericardial effusion that remained stable throughout the procedure. ??Left atrial appendage anatomy was amenable to closure. ??There was no appendage thrombus. ?? We advanced a [employer] connect system into the SVC and pulled it down to the desired location for transseptal puncture over the fossa ovalis. ??This was performed without any acute complication. ??Access was via fluoroscopic and JASON guidance. ??Left atrial mean pressure was 17 mmHg. ?? The double curve Watchman Access Sheath (WAS) was advanced into the left atrium. ??The pigtail catheter was delivered through this into the left atrial appendage. ??After measurements, we elected to proceed with a 27 mm device. ??First deployment was slightly proximal and therefore we performed a partial recapture. ??With more distal placement, we had excellent seal with no evidence of leak. ??There was excellent compression approximating 15-20%. ??Tug test was satisfactory. The Position, [place], Size, Seal (PASS) criteria were satisfied. The device was released and remained stable. ?? Final JASON evaluation showed no change in the pericardial effusion and stable, satisfactory device placement. ?? Protamine was given to reverse heparin effect. ??A figure of 8 suture was deployed in the right femoral vein and sheaths were removed with adequate hemostasis. FINAL DIAGNOSIS: 1. Atrial fibrillation with elevated CHADS VASc score ? A. Status post acutely successful 27 mm Watchman device placement SUMMARY OF RECOMMENDATIONS: 1. ??Apixaban 2.5 mg b.i.d. for 3-6 months. ??Final plan to be determined at follow-up in 6 weeks ?? 2. ??3 hours bedrest 3. ??Six weeks follow-up ?? 4. ??Discharge once dismissal criteria met. DIAGNOSTIC/ABLATION INTRA-PROCEDURE - General anesthesia - Transesophageal echocardiogram - Central access completed - Patient heparinization - Catheter placement - Basic interval determination - Intracardiac ultrasound examination of the heart and pericardial space - Intracardiac ultrasound guided transseptal access - Transseptal sheath placement - CLAY closure - Intracardiac ultrasound examination of the heart and pericardial space RADIATION DOSE DATA Procedure cumulative skin dose (mGy): 186.63 Procedure cumulative dose area product (Gy-cm2): 31.07 Fluoro Time (Min): 4.40 For the complete report, see the Order-Level Documents. Procedure Note Radha Andrade M.B.B.S. - 10/22/2023 For the complete report, see the Order-Level Documents. PROCEDURE TYPES 1. CLAY CLOSURE WITH IMPLANT 2. TRANSESOPHAGEAL (JASON) ECHOCARDIOGRAM PRE-PROCEDURE DIAGNOSIS 1. Atrial Fibrillation Paroxysmal (HCC) HRS NOTE BRIEF HISTORY: Mr. Castro is an 82-year-old gentleman with paroxysmal atrialfibrillation, achalasia, end-stage renal disease on peritoneal dialysisand history of GI bleeding. Due to relative contraindication to long-termanticoagulation, he was referred for left atrial appendage occlusion.After a shared decision making consultation, the patient elected toproceed with a left atrial appendage occlusion. The patient was adamantthat he does not wish to receive any contrast. Therefore, the procedurewas performed under general anesthesia and JASON guidance given hisinability to lay flat in view of his achalasia and desire to avoidcontrast used. PROCEDURAL DETAILS: The patient proceeded to the laboratory in the fasting state. Generalanesthesia was administered. IV antibiotics were administered. Lidocainewas administered to the right femoral region. Vascular access wasobtained in the right femoral vein using ultrasound guidance with themodified Seldinger technique. A 16 Angolan and 8 Angolan sheath were placedin situ. Heparin bolus was administered maintaining an ACT of >300seconds. Baseline JASON evaluation demonstrated a small anteriorpericardial effusion that remained stable throughout the procedure. Leftatrial appendage anatomy was amenable to closure. There was no appendagethrombus. We advanced a VersaCross connect system into the SVC and pulled it down tothe desired location for transseptal puncture over the fossa ovalis. Thiswas performed without any acute complication. Access was via fluoroscopicand JASON guidance. Left atrial mean pressure was 17 mmHg. The double curve Watchman Access Sheath (WAS) was advanced into the leftatrium. The pigtail catheter was delivered through this into the leftatrial appendage. After measurements, we elected to proceed with a 27 mmdevice. First deployment was slightly proximal and therefore we performeda partial recapture. With more distal placement, we had excellent sealwith no evidence of leak. There was excellent compression [id number] Tug test was satisfactory. The Position, [place], Size, Seal(PASS) criteria were satisfied. The device was released and remainedstable. Final JASON evaluation showed no change in the pericardial effusion andstable, satisfactory device placement. Protamine was given to reverse heparin effect. A figure of 8 suture wasdeployed in the right femoral vein and sheaths were removed with adequatehemostasis. FINAL DIAGNOSIS: 1. Atrial fibrillation with elevated CHADS VASc score A. Status post acutely successful 27 mm Watchman device placement SUMMARY OF RECOMMENDATIONS: 1. Apixaban 2.5 mg b.i.d. for 3-6 months. Final plan to be determined atfollow- up in 6 weeks 2. 3 hours bedrest 3. Six weeks follow-up 4. Discharge once dismissal criteria met. DIAGNOSTIC/ABLATION INTRA-PROCEDURE - General anesthesia - Transesophageal echocardiogram - Central access completed - Patient heparinization - Catheter placement - Basic interval determination - Intracardiac ultrasound examination of the heart and pericardial space - Intracardiac ultrasound guided transseptal access - Transseptal sheath placement - CLAY closure - Intracardiac ultrasound examination of the heart and pericardial space RADIATION DOSE DATA Procedure cumulative skin dose (mGy): 186.63 Procedure cumulative dose area product (Gy-cm2): 31.07 Fluoro Time (Min): 4.40 For the complete report, see the Order-Level Documents. Radha Giles CV ELECTROPHYSIOL ÁNGEL YESY * (ABNORMAL) ACT (Activated Clotting Time), POCT (10/17/2023 1:38 PM ROLLER SKATE REPAIRER) Only the most recent of2 resultswithin the time period is included. Activated Clotting Time, POCT 310(H) 84 - 139 sec 10/17/2023 1:49 PM ROLLER SKATE REPAIRER PCSM Blood 10/17/2023 1:38 PM ROLLER SKATE REPAIRER 10/17/2023 1:50 PM ROLLER SKATE REPAIRER Unknown Provider LAB POCT ORDERABLES - DEVICE POC [facility] [address] [place] [address], [facility] PCSM [facility] POC [address] [place] [address] * LDA ANE ENDOTRACHEAL AIRWAY (10/17/2023 12:19 PM ROLLER SKATE REPAIRER) Narrative Manda Irby APRN, CRNA, D.N.P. - 10/17/2023 12:19 PM ROLLER SKATE REPAIRER Manda Irby APRN, CRNA, D.N.P. ? 10/17/2023 12:35 PM Airway Date/Time: 10/17/2023 12:19 PM Performed by: Manda Irby APRN, CRNA, D.N.P. Authorized by: Manda Irby APRN, CRNA, D.N.P. ?? Patient location during procedure: OR / Procedure Area PROCEDURE DETAILS: Mask difficulty assessment: not attempted Final airway type: video laryngoscope Laryngeal Manipulation: no ?? Final best view of glottic structures - Cormack/Lehane Score: grade 1 ETT location: oral VL device: glide scope [place] scope blade size: 4 Tube size: 7.5 ETT distance at teeth/gum: 22 Oral tube type: standard ETT Cuffed: yes Leak Test Performed: no ?? Number of attempt to successful placement: 1 Airway confirmation: bilateral breath sounds, positive ETCO2 and bilateral chest rise Other previous techniques attempted: none Additional Comments Airway clear, no regurg. ?? PRE PROCEDURE DETAILS: Pre evaluation for airway management: procedure Urgency: elective Preop assessment of probable difficulty: no difficulty anticipated Preoxygenation: bag valve mask SEDATION / ANESTHESIA Anesthesia method: anesthesia POST PROCEDURE DETAILS: ? Procedure outcome: successful ?? Notable Events: no complications Manda Irby APRN, CRNA, CandidaNBaileyPBailey ANESTH ESIA ORDERABLES * Potassium (10/17/2023 10:25 AM ROLLER SKATE REPAIRER) Potassium, S 4.6 3.6 - 5.2 mmol/L 10/17/2023 11:29 AM ROLLER SKATE REPAIRER DTL Blood (Blood, Venous) 10/17/2023 10:25 AM ROLLER SKATE REPAIRER 10/17/2023 11:18 AM ROLLER SKATE REPAIRER Radha Giles LAB BLOOD ADD-ON [facility] [address] [place] [address], [facility] [address] [place] [address] * ECG 12 Lead (10/16/2023 3:35 PM ROLLER SKATE REPAIRER) Ventricular Rate ECG/Min 63 BPM MUSE DC Interval 192 ms MUSE QRSD Interval 122 ms MUSE QT Interval 438 ms MUSE QTC Interval 448 ms MUSE P [place] 96 degrees MUSE R [place] -4 degrees MUSE T Wave [place] 4 degrees MUSE 10/16/2023 3:35 PM ROLLER SKATE REPAIRER 10/16/2023 3:45 PM ROLLER SKATE REPAIRER Impressions MUSE - 10/16/2023 3:45 PM ROLLER SKATE REPAIRER Sinus rhythm Premature atrial complexes Non-specific intra-ventricular conduction delay Nonspecific ST and T wave abnormality When compared with ECG of 07-AUG-2023 10:46, Premature atrial complexes are now present DC interval has decreased Reviewed by NICHOL Howard Narrative Procedure Note David Blandon M.D., Ph.D. - 10/16/2023 IMPRESSION: Sinus rhythm Premature atrial complexes Non-specific intra-ventricular conduction delay Nonspecific ST and T wave abnormality When compared with ECG of 07-AUG-2023 10:46, Premature atrial complexes are now present DC interval has decreased Reviewed by NICHOL Howard Radha RicoSBailey ECG ORDERABLES MUSE NA * Prothrombin Time (PT) (10/16/2023 2:33 PM ROLLER SKATE REPAIRER) Pathologist [facility] Prothrombin Time, P 11.9 9.4 - 12.5 sec 10/16/2023 3:12 PM ROLLER SKATE REPAIRER DTL INR 1.1 0.9 - 1.1 10/16/2023 3:12 PM ROLLER SKATE REPAIRER DTL Comment: ----ADDITIONAL INFORMATION---- Standard intensity warfarin therapeutic range: 2.0 to 3.0 ?? High intensity warfarin therapeutic range: 2.5 to 3.5 Blood (Blood, Venous) 10/16/2023 2:33 PM ROLLER SKATE REPAIRER 10/16/2023 2:56 PM ROLLER SKATE REPAIRER Radha SanchezB.S. LAB BLOOD ADD-ON Performing Organization Address City/[facility] [place] [address], [facility] [place] [address] * Type and Screen (with Reflex Antibody ID) (10/16/2023 2:33 PM ROLLER SKATE REPAIRER) [facility] ABORh O Pos Not applicable 10/16/2023 3:56 PM ROLLER SKATE REPAIRER ETRM Antibody Screen Negative Negative 10/16/2023 4:25 PM ROLLER SKATE REPAIRER ETRM Type & Screen Expiration 12/14/2023 23:59 10/16/2023 3:56 PM ROLLER SKATE REPAIRER ETRM Testing Location [place] DEFAULT 10/16/2023 3:01 PM ROLLER SKATE REPAIRER ETRM Blood (Blood, Venous) 10/16/2023 2:33 PM ROLLER SKATE REPAIRER 10/16/2023 3:01 PM ROLLER SKATE REPAIRER Radha Lockwood.S. LAB BLOOD BANK TE ST ORDERABLES [facility] [address] [place] [address], [place] ETRM [facility] [address] [place] [address] * (ABNORMAL) Comprehensive Metabolic Panel (10/16/2023 2:33 PM ROLLER SKATE REPAIRER) Potassium, S 4.4 3.6 - 5.2 mmol/L 10/16/2023 3:25 PM ROLLER SKATE REPAIRER DTL Sodium, S 142 135 - 145 mmol/L 10/16/2023 3:25 PM ROLLER SKATE REPAIRER DTL Chloride, S 104 98 - 107 mmol/L 10/16/2023 3:25 PM ROLLER SKATE REPAIRER DTL Bicarbonate, S 27 22 - 29 mmol/L 10/16/2023 3:25 PM ROLLER SKATE REPAIRER DTL Anion Gap 11 7 - 15 10/16/2023 3:25 PM ROLLER SKATE REPAIRER DTL BUN (Blood Urea Nitrogen), S 48(H) 8 - 24 mg/dL 10/16/2023 3:25 PM ROLLER SKATE REPAIRER DTL Creatinine 3.96(H) 0.74 - 1.35 mg/dL 10/16/2023 3:25 PM ROLLER SKATE REPAIRER DTL Estimated GFR (eGFR) <15(L) >=60 mL/min/BS A 10/16/2023 3:25 PM ROLLER SKATE REPAIRER DTL Comment: Estimated GFR calculated using the 2020 CKD_EPI creatinine equation. Calcium, Total, S 8.3(L) 8.8 - 10.2 mg/dL 10/16/2023 3:25 PM ROLLER SKATE REPAIRER DTL Glucose, S 132 70 - 140 mg/dL 10/16/2023 3:25 PM ROLLER SKATE REPAIRER DTL Protein, Total, S 5.6(L) 6.3 - 7.9 g/dL 10/16/2023 3:25 PM ROLLER SKATE REPAIRER DTL Albumin, S 3.4(L) 3.5 - 5.0 g/dL 10/16/2023 3:25 PM ROLLER SKATE REPAIRER DTL Aspartate Aminotransferase (AST), S 33 8 - 48 U/L 10/16/2023 3:25 PM ROLLER SKATE REPAIRER DTL Alkaline Phosphatase, S 310(H) 40 - 129 U/L 10/16/2023 3:25 PM ROLLER SKATE REPAIRER DTL Alanine Aminotransferase (ALT), S 23 7 - 55 U/L 10/16/2023 3:25 PM ROLLER SKATE REPAIRER DTL Bilirubin, Total, S 0.2 0.0 - 1.2 mg/dL 10/16/2023 3:25 PM ROLLER SKATE REPAIRER DTL Blood (Blood, Venous) 10/16/2023 2:33 PM ROLLER SKATE REPAIRER 10/16/2023 3:06 PM ROLLER SKATE REPAIRER Radha Giles LAB BLOOD ADD-ON [facility] [address] [place] [address], [facility] DTL [facility] [address] [place] [address] from Last 3 Months
--- OUTSIDE RECORDS SUMMARY | 2023-12-07 10:06 | XMS_ITS | Clinical Summary ---
Author Name Unknown Organization [facility] Address [address] [place] [address] Care Team Providers Care Pediatric Geneticist Name Role Phone Elsewhere, Pcp Primary Care Provider Unavailabl e Source Comments Patient records contain information from all sites at [facility]. For routine questions regarding patient records, call [phone] during business hours, M-F 8:00 AM - 5:00 PM Central Time. Record requests for emergency care only can be directed to [phone] at any time.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 Stenosis Aortic Valve Acquired (Primary Dx); Atrial Fibrillation Paroxysmal (HCC) 11/27/2023 10:01 AM CDT - 11/27/2023 11:59 PM CDT Hospital Encounter Department of Cardiovascular Diseases in [address] [phone] Sarina Miller, P.A.-C., M.S. Atrial Fibrillation Paroxysmal (HCC) Discharge Disposition: Home or Self Care 11/24/2023 9:30 AM CDT Clinical Communication Virtual Review in [place], [place] [address] [place], [place] [id number] Pre-visit Intake 11/06/2023 Clinical Communication Department of Cardiovascular Medicine in [place], [place] [address] [place] [address] Viki Nolasco APRN, C.N.P., M.S.N. After Visit Question (Eliquis and knee surgery) 10/17/2023 12:06 PM MINERAL TECHNOLOGIST Anesthesia Event Division of Cardiovascular Diseases in [address] [phone] Manda Irby APRN, Amaury SERRANO.Leroy Taylor M.D. 10/17/2023 11:15 AM MINERAL TECHNOLOGIST - 10/17/2023 3:15 PM MINERAL TECHNOLOGIST Surgery Division of Cardiovascular Diseases in [address] [phone] Radha Andrade M.B.B.S. CLAY CLOSURE WITH IMPLANT 10/17/2023 8:57 AM MINERAL TECHNOLOGIST - 10/17/2023 7:44 PM MINERAL TECHNOLOGIST Hospital Encounter Division of Cardiovascular Diseases in [address] [phone] Radha Andrade MBaileyB.B.S. Atrial Fibrillation Paroxysmal (HCC) Discharge Disposition: Home or Self Care 10/17/2023 7:40 AM MINERAL TECHNOLOGIST - 10/17/2023 8:56 AM MINERAL TECHNOLOGIST Hospital Encounter Department of Cardiovascular Diseases in [place], [place] [address] [place] [phone] Radha Andrade M.B.B.S. Atrial Fibrillation Paroxysmal (HCC) Discharge Disposition: Home or Self Care 10/16/2023 2:09 PM MINERAL TECHNOLOGIST - 10/16/2023 11:59 PM MINERAL TECHNOLOGIST Hospital Encounter Department of Laboratory Medicine and Pathology, [facility] in [place], [place] [address] [place] [phone] Radha Andrade M.B.B.S. Atrial Fibrillation Paroxysmal (HCC) Discharge Disposition: Home or Self Care 10/16/2023 1:00 PM MINERAL TECHNOLOGIST Virtual Visit Department of Cardiovascular Medicine in [place], [place] [address] [place] [address] Radha Andrade M.Abbey [place] R.N. Atrial Fibrillation Paroxysmal (HCC) (Primary Dx) from Last 3 Months Immunizations Name Administration Dates Next Due Influenza, Seasonal, Injectable 07/12/2002 Family History Medical History Relation Name Comments Dementia Mother Mother Relation Name Status Comments Mother Mother Social History Tobacco Use Types Packs/Day [...] 04/11/2022 How often do you attend chur or gnosticist services? More than 4 times per year 04/11/2022 Do you belong to any clubs o r organizations such as jainism groups, unions, fraternal or [...] and heating? Not hard at all 05/13/2023 [facility] - Occupational Stress [...] money to buy more. Never true 05/13/20 Within the past 12 months, t he [...] your living situation today? [facility] 05/13/2023 Education Answer Date [...] (177 lb 7.5 oz) 10/17/2023 10:05 AM MINERAL TECHNOLOGIST Height 172.5 cm (5' 7.91) 10/17/2023 10:[address] Body Mass Index 27.05 10/17/2023 10:05 AM MINERAL TECHNOLOGIST Plan of Treatment Health Maintenance Due Date Last Done Comments COVID-19 Vaccine (2022-09 4 season) 2023 05/19/2022, 05/18/2021, 10/14/2020, Additional history exists Depression Screening (Annual PHQ-2) 08/21/2023 DTaP,Tdap,and Td Vaccines (2 - Td or Tdap) 07/10/2024 07/10/2014, 03/18/2008 Office Visit for Blood Press ure Check / Re-check 08/07/2024 08/07/2023 Creatinine Level (Kidney Fun ction Test) 11/30/2024 12/01/2023, 11/27/2023, 10/16/2023, Additional history exists Potassium Level 11/30/2024 12/01/2023, 09/22, 10/16/2023, Additional history exists Sodium Level 11/30/2024 12/01/2023, 09/22, 09/04/2023, Additional history exists Pneumococcal vaccine (65+ years) Completed 11/05/19 15, 02/02/2009 Zoster Vaccines Completed 02/14/2019, 11/20, 04/08/2010 Influenza Vaccine Completed 05/31/2023, , 05/18/2021, Additional history exists Fall Risk Screen (Annual) Completed 11/27/2023 Medical Devices Implanted Type Area Rail Equipment Operator Device Identifier Shelf Expiration Date Model / Serial / Lot Osteomed-Plate Straight 2 Hole Med - [id number] Implanted:Qty: 1 on 06/19/2002 Hardware e.g. pins/screws/ rods [employer] Description:Device Manufactu rer - [employer]. Device Status Text - [id number]. Osteomed-Plate [place] Hole Large - Baptiste [id number] Implanted:Qty: 2 on 06/19/2002 Hardware e.g. pins/screws/ rods [employer] Description:Device Manufactu rer - [employer]. Device Status Text - [id number]. Osteomed-Screw Auto-Drive 1.6 X 4 - Baptiste [id number] Implanted:Qty: 16 on 06/19/2002 Hardware e.g. pins/screws/ rods [employer] Description:Device Manufactu rer - [employer]. Device Status Text - [id number]. Dev Clay Cls c Pro Del Sys 27 - [id number] Implanted:Qty: 1 on 10/17/2023 by Radha Andrade M.B.B.S. at [facility] Mesh or Patch [employer] 05/07/2026 [id number] / / [id number] Procedures Procedure Name Priority Date/Time Associated Diagnosis [...] - PROCEDURAL GUIDANCE Routine 10/17/2023 4:25 PM MINERAL TECHNOLOGIST Atrial Fibrillation Paroxysmal (HCC) HEART RHYTHM PROCEDURE Routine 2:19 PM MINERAL TECHNOLOGIST Atrial Fibrillation Paroxysmal (HCC) HEART RHYTHM PROCEDURE Routine 2:19 PM MINERAL TECHNOLOGIST Atrial Fibrillation Paroxysmal (HCC) ADULT OXYGEN THERAPY Routine 10/17/2023 2:00 PM MINERAL TECHNOLOGIST ADULT OXYGEN THERAPY Routine 10/17/2023 2:00 PM MINERAL TECHNOLOGIST ACT, POCT, B Routine 10/17/2023 1:38 PM MINERAL TECHNOLOGIST ACT, POCT, B Routine 10/17/2023 1:20 PM MINERAL TECHNOLOGIST LDA ANE ENDOTRACHEAL AIRWAY Routine 10/17/2023 12:19 PM MINERAL TECHNOLOGIST POTASSIUM, S/P Routine 10/17/2023 10:25 AM MINERAL TECHNOLOGIST ECG Routine 10/16/2023 3:35 PM MINERAL TECHNOLOGIST Atrial Fibrillation Paroxysmal (HCC) TYPE AND SCREEN Routine 10/16/2023 2:33 PM MINERAL TECHNOLOGIST Atrial Fibrillation Paroxysmal (HCC) PROTHROMBIN TIME (PT), P Routine 10/16/2023 2:33 PM MINERAL TECHNOLOGIST Atrial Fibrillation Paroxysmal (HCC) COMPREHENSIVE METABOLIC PANEL, S/P Routine 10/16/2023 2:33 PM MINERAL TECHNOLOGIST Atrial Fibrillation Paroxysmal (HCC) CBC WITH DIFFERENTIAL, B Routine 10/16/2023 2:33 PM MINERAL TECHNOLOGIST Atrial Fibrillation Paroxysmal (HCC) from Last 3 Months or Most Recently Relevant to Health Maintenance Results * (JASON) 2D WITH COLOR, LIMITED DOPPLER AND CONTRAST (11/27/2023 11:15 AM CDT) Ejection Fraction 60 MC CV EICA Anatomical Region Laterality Modality Echocardiography 11/27/2023 10:1 [...] and the findings as documented in the hardware engineer and also performed a pertinent examination including [...] performed at the request of the primary customer service rep. Adult probe inserted without difficulty. LEFT VENTRICLE:Normal [...] Agitated saline injection(s) performed during sedation. No qxuyh-ti-khjv shunt at atrial level at rest or [...] Sedation Narrator or other pertinent record in [facility] for additional procedure and sedation information. Physician [...] valve ??with mild aortic valve regurgitation and nshdmgos-qg-eiefrm aortic stenosis by visual estimate on 2D imaging (recommend transthoracic echocardiogram for further evaluation as clinically indicated). 5. Moderate tricuspid valve regurgitation. There is tricuspid prolapse. 6. Due to patient's achalasia, the descending aorta was not able to be well visualized on today's examination. 7. 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 8. Agitated saline injection(s) performed during sedation ??no apparent ezeun-nc-paue shunting at the atrial level at rest [...] aortic valve with mild aortic valve regurgitation ugqkqfcwtbv-bt-usqdkf aortic stenosis by visual estimate on 2D imaging(recommend transthoracic echocardiogram for further evaluation asclinically indicated). 5. Moderate tricuspid valve regurgitation. There is tricuspid prolapse. 6. Due to patient's achalasia, the descending aorta was not able to bewell visualized on today's examination. 7. 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 8. Agitated saline injection(s) performed during sedation no nopkizanfhmft-hr-qdfv shunting at the atrial level at rest [...] and the findings as documented in the hardware engineer and alsoperformed a pertinent examination including a heart, airway and lungassessment. Mallampati Assessment: As documented in the RN pre-procedureassessment. Sedation plan: Transesophageal echo - moderate sedation. ASAphysical status score: Class III. The patient's identity and all neededequipment were confirmed and a final confirmatory pause was performed bythe team immediately prior to start. PROCEDURAL ECHO FINDINGS:Transesophageal echocardiogram performed at the request of the primaryservice staff consultant. Adult probe inserted without difficulty. LEFT [...] cava. Agitated saline injection(s) performed during sedation. Cwqbmou-jp-zuaw shunt at atrial level at rest or [...] See Sedation Narrator or other pertinentrecord in [employer] for additional procedure and sedation information.Physician signature [...] P.A.-C., M.S. LAB BLO OD ADD-ON [facility] [address] [place] [address], [place] DTL [facility] [address] [place], [place] [address] [place] [address] [address] [place] [address] * (ABNORMAL) Creatinine with Estimated GFR (11/27/2023 9:49 AM CDT) Creatinine 4.46(H) 0.74 - 1.35 mg/dL 11/27/2023 11:16 AM CDT DTL Estimated GFR (eGFR) <15(L) >=60 mL/min/BSA 11/27/2023 11:16 AM CDT DTL Comment: Estimated GFR calculated using the 2020 CKD_EPI creatinine equation. Blood (Blood, Venous) 11/27/2023 9:49 AM CDT 11/27/2023 10:56 AM CDT Sarina C Angela Palmer M.S. LAB BLO OD ADD-ON [facility] [address] [place] [address], [place] [facility] [address] [place] [address] * Echo Transesophageal (JASON) - Procedural Guidance (10/17/2023 4:25 PM MINERAL TECHNOLOGIST) Ejection Fraction 60 [facility] Anatomical Region Laterality Modality Other 10/17/2023 7:40 AM MINERAL TECHNOLOGIST Narrative 10/17/2023 2:35 PM MINERAL TECHNOLOGIST For the complete report, see the Order-Level [...] 14. Residual iatrogenic atrial septal defect with pcaf-hi-yxoyw shunt at the site of transseptal puncture. [...] 14. Residual iatrogenic atrial septal defect with krjp-sz-phzqb shunt atthe site of transseptal puncture. 15. The remaining findings are unchanged from the pre-procedural images. For the complete report, see the Order-Level Documents. Radha Giles CV ECHO PROCEDURE S * CLAY CLOSURE W/ IMPLANT, TRANSESPOHAGEAL (JASON) ECHOCARDIOGRAM (10/17/2023 2:19 PM MINERAL TECHNOLOGIST) Anatomical Region Laterality Modality X-Ray Angiograph y 10/17/2023 1:01 PM MINERAL TECHNOLOGIST Narrative 10/22/2023 9:11 AM MINERAL TECHNOLOGIST For the complete report, see the Order-Level [...] with the modified Seldinger technique. A 16 Montserratian and 8 Montserratian sheath were placed in situ. ?? Heparin bolus was administered maintaining an ACT of >300 seconds. ??Baseline JASON evaluation demonstrated a small anterior pericardial effusion that remained stable throughout the procedure. ??Left atrial appendage anatomy was amenable to closure. ??There was no appendage thrombus. ?? We advanced a VersaCross connect system into [...] 15-20%. ??Tug test was satisfactory. The Position, [place], Size, Seal (PASS) criteria were satisfied. The [...] guidance with themodified Seldinger technique. A 16 Montserratian and 8 Montserratian sheath were placedin situ. Heparin bolus was [...] evidence of leak. There was excellent compression oowftssozqjmi50-56%. Tug test was satisfactory. The Position, [place], Size, Seal(PASS) criteria were satisfied. The device [...] Order-Level Documents. Radha Giles CV ELECTROPHYSIOL ÁNGEL HAYWARD * (ABNORMAL) ACT (Activated Clotting Time), POCT (10/17/2023 1:38 PM MINERAL TECHNOLOGIST) Only the most recent of2 resultswithin the time period is included. Activated Clotting Time, POCT 310(H) 84 - 139 sec 10/17/2023 1:49 PM MINERAL TECHNOLOGIST PCSM Blood 10/17/2023 1:38 PM MINERAL TECHNOLOGIST 10/17/2023 1:50 PM MINERAL TECHNOLOGIST Unknown Provider LAB POCT ORDERABLES - DEVICE Performing Organization Address City/State/[facility] Co de Phone Number POC [facility] [address] [place] [address], [place] PCSM [facility] POC [address] [place] [address] * LDA ANE ENDOTRACHEAL AIRWAY (10/17/2023 12:19 PM MINERAL TECHNOLOGIST) Narrative Manda Irby APRN, CRNA, D.N.P. - 10/17/2023 12:19 PM MINERAL TECHNOLOGIST Manda Irby APRN, CRNA, D.N.P. ? 10/17/2023 [...] ETT location: oral VL device: glide scope [place] scope blade size: 4 Tube size: 7.5 [...] Events: no complications Manda Irby APRN, CRNA, D.NBaileyPBailey ANESTH ESIA ORDERABLES * Potassium (10/17/2023 10:25 AM MINERAL TECHNOLOGIST) Potassium, S 4.6 3.6 - 5.2 mmol/L 10/17/2023 11:29 AM MINERAL TECHNOLOGIST DTL Blood (Blood, Venous) 10/17/2023 10:25 AM MINERAL TECHNOLOGIST 10/17/2023 11:18 AM MINERAL TECHNOLOGIST Radha Giles LAB BLOOD ADD-ON Performing Organization Address City/State/[facility] Co de Phone Number [facility] [address] [place] [address] * ECG 12 Lead (10/16/2023 3:35 PM MINERAL TECHNOLOGIST) Ventricular Rate ECG/Min 63 BPM MUSE AZ Interval 192 ms MUSE QRSD Interval 122 ms MUSE QT Interval 438 ms MUSE QTC Interval 448 ms MUSE P Hall 96 degrees MUSE R Hall -4 degrees MUSE T Wave Hall 4 degrees MUSE 10/16/2023 3:35 PM MINERAL TECHNOLOGIST 10/16/2023 3:45 PM MINERAL TECHNOLOGIST Impressions MUSE - 10/16/2023 3:45 PM MINERAL TECHNOLOGIST Sinus rhythm Premature atrial complexes Non-specific intra-ventricular conduction delay Nonspecific ST and T wave abnormality When compared with ECG of 07-AUG-2023 10:46, Premature atrial complexes are now present AZ interval has decreased Reviewed by NICHOL Howard Narrative Procedure Note David Blandon M.D., Ph.D. - 10/16/2023 IMPRESSION: Sinus rhythm Premature atrial complexes Non-specific intra-ventricular conduction delay Nonspecific ST and T wave abnormality When compared with ECG of 07-AUG-2023 10:46, Premature atrial complexes are now present AZ interval has decreased Reviewed by NICHOL Howard Radha RicoSBailey ECG ORDERABLES Performing Organization Address City/[facility]/ZIP Co de Phone Number MUSE NA * Prothrombin Time (PT) (10/16/2023 2:33 PM MINERAL TECHNOLOGIST) [facility] Prothrombin Time, P 11.9 9.4 - 12.5 sec 10/16/2023 3:12 PM MINERAL TECHNOLOGIST DTL INR 1.1 0.9 - 1.1 10/16/2023 3:12 PM MINERAL TECHNOLOGIST DTL Comment: ----ADDITIONAL INFORMATION---- Standard intensity warfarin therapeutic range: 2.0 to 3.0 ?? High intensity warfarin therapeutic range: 2.5 to 3.5 Blood (Blood, Venous) 10/16/2023 2:33 PM MINERAL TECHNOLOGIST 10/16/2023 2:56 PM MINERAL TECHNOLOGIST Radha Lockwood.S. LAB BLOOD ADD-ON Performing Organization Address [facility] Co de Phone Number [facility] [address] [place] [address], [place] DTL [facility] [address] [place] [address] * Type and Screen (with Reflex Antibody ID) (10/16/2023 2:33 PM MINERAL TECHNOLOGIST) [facility] ABORh O Pos Not applicable 10/16/2023 3:56 PM MINERAL TECHNOLOGIST ETRM Antibody Screen Negative Negative 10/16/2023 4:25 PM MINERAL TECHNOLOGIST ETRM Type & Screen Expiration 12/14/2023 23:59 10/16/2023 3:56 PM MINERAL TECHNOLOGIST ETRM Testing Location Ken DEFAULT 10/16/2023 3:01 PM MINERAL TECHNOLOGIST ETRM Blood (Blood, Venous) 10/16/2023 2:33 PM MINERAL TECHNOLOGIST 10/16/2023 3:01 PM MINERAL TECHNOLOGIST Amlen Giles LAB BLOOD BANK TE ST ORDERABLES [facility] [address] [place] [address], [place] ETRM [facility] [address] [place] [address] * (ABNORMAL) Comprehensive Metabolic Panel (10/16/2023 2:33 PM MINERAL TECHNOLOGIST) Potassium, S 4.4 3.6 - 5.2 mmol/L 10/16/2023 3:25 PM MINERAL TECHNOLOGIST DTL Sodium, S 142 135 - 145 mmol/L 10/16/2023 3:25 PM MINERAL TECHNOLOGIST DTL Chloride, S 104 98 - 107 mmol/L 10/16/2023 3:25 PM MINERAL TECHNOLOGIST DTL Bicarbonate, S 27 22 - 29 mmol/L 10/16/2023 3:25 PM MINERAL TECHNOLOGIST DTL Anion Gap 11 7 - 15 10/16/2023 3:25 PM MINERAL TECHNOLOGIST DTL BUN (Blood Urea Nitrogen), S 48(H) 8 - 24 mg/dL 10/16/2023 3:25 PM MINERAL TECHNOLOGIST DTL Creatinine 3.96(H) 0.74 - 1.35 mg/dL 10/16/2023 3:25 PM MINERAL TECHNOLOGIST DTL Estimated GFR (eGFR) <15(L) >=60 mL/min/BS A 10/16/2023 3:25 PM MINERAL TECHNOLOGIST DTL Comment: Estimated GFR calculated using the 2020 CKD_EPI creatinine equation. Calcium, Total, S 8.3(L) 8.8 - 10.2 mg/dL 10/16/2023 3:25 PM MINERAL TECHNOLOGIST DTL Glucose, S 132 70 - 140 mg/dL 10/16/2023 3:25 PM MINERAL TECHNOLOGIST DTL Protein, Total, S 5.6(L) 6.3 - 7.9 g/dL 10/16/2023 3:25 PM MINERAL TECHNOLOGIST DTL Albumin, S 3.4(L) 3.5 - 5.0 g/dL 10/16/2023 3:25 PM MINERAL TECHNOLOGIST DTL Aspartate Aminotransferase (AST), S 33 8 - 48 U/L 10/16/2023 3:25 PM MINERAL TECHNOLOGIST DTL Alkaline Phosphatase, S 310(H) 40 - 129 U/L 10/16/2023 3:25 PM MINERAL TECHNOLOGIST DTL Alanine Aminotransferase (ALT), S 23 7 - 55 U/L 10/16/2023 3:25 PM MINERAL TECHNOLOGIST DTL Bilirubin, Total, S 0.2 0.0 - 1.2 mg/dL 10/16/2023 3:25 PM MINERAL TECHNOLOGIST DTL Blood (Blood, Venous) 10/16/2023 2:33 PM MINERAL TECHNOLOGIST 10/16/2023 3:06 PM MINERAL TECHNOLOGIST Radha Giles LAB BLOOD ADD-ON [facility] [address] [place] [address], [place] DTL [facility] [address] [place] [address] from Last 3 Months Advance Directives For more information, please contact: [phone] * Full Code (Latest Code Status on File) Date Activated Date Inactivated Comments 10/17/2023 2:30 PM 10/17/2023 9:49 PM Question Answer Comments Full Code: Not Discussed Due to: Patient not available * Full Code Date Activated Date Inactivated Comments 06/06/2022 1:12 AM 06/07/2022 5:32 PM Question Answer Comments Full Code: Discussed * Full Code Date Activated Date Inactivated Comments 12/09/2021 5:10 PM 12/11/2021 2:46 PM Question Answer Comments Full Code: Discussed * Full Code Date Activated Date Inactivated Comments 2021 1:00 AM 12/08/2021 4:13 PM Question Answer Comments Full Code: Discussed Care Teams Pediatric Geneticist Relationship Specialty Start Date End Date Elsewhere, Pcp PCP - General Internal Medicine 11/24/23
--- OUTSIDE RECORDS SUMMARY | 2023-12-07 10:06 | XMS_ITS | Encounter Summary ---
Author Name Unknown Organization [facility] Address [address] [place] [address] Care Team Providers Care Maintenance Shop Laborer Name Role Phone Elsewhere, Pcp Primary Care Provider Unavailabl e Reason for Referral * Outpatient (Routine) - Authorized Specialty Diagnoses / Procedures Referred By Contac t Referred To Contact Diagnoses Stenosis Aortic Valve Acquired Procedures Echo Transthoracic (TTE) Sarina Miller P.A.-C., M.S. [address] [place] [phone] [facility] Referral ID Status Reason Start Date Expiration Date V isits Requested Visits Authorized [id number] Authorized 11/28/2023 11/27/2024 1 1 * Outpatient (Routine) - Authorized Specialty Diagnoses / Procedures Referred By Contac t Referred To Contact Diagnoses Stenosis Aortic Valve Acquired Procedures DX Chest AP or PA and Lateral 2 Views Sarina Miller P.A.-C., M.S. [address] [place] [phone] [facility] Referral ID Status Reason Start Date Expiration Date V isits Requested Visits Authorized [id number] Authorized 11/28/2023 11/27/2024 1 1 * Outpatient (Routine) - Authorized Specialty Diagnoses / Procedures Referred By Contac t Referred To Contact Diagnoses Stenosis Aortic Valve Acquired Procedures ECG 12 Lead Sarina Miller P.A.-C., M.S. [address] [place] [phone] [facility] Referral ID Status Reason Start Date Expiration Date V isits Requested Visits Authorized [id number] Authorized 11/28/2023 11/27/2024 1 1 * Outpatient (Routine) - Authorized Specialty Diagnoses / Procedures Referred By Contac t Referred To Contact Cardiovascular Disease Sarina Miller P.A.-C., M.S. [address] [place] [phone] [facility] Referral ID Status Reason Start Date Expiration Date V isits Requested Visits Authorized [id number] Authorized 11/28/2023 05/29/2025 1 1 * Outpatient (Routine) - Authorized Specialty Diagnoses / Procedures Referred By Contac t Referred To Contact Cardiovascular Disease Sarina Miller P.A.-C., M.S. [address] [place] [phone] CVD LAAO TODD 01 ROAL Referral ID Status Reason Start Date Expiration Date V isits Requested Visits Authorized [id number] Authorized 11/28/2023 05/29/2025 1 1 * Outpatient (Routine) - Authorized Specialty Diagnoses / Procedures Referred By Contac t Referred To Contact Diagnoses Atrial Fibrillation Paroxysmal (HCC) Procedures Echo Transesophageal (JASON) Sarina Miller P.A.-C., M.S. [address] [place] [phone] [facility] Referral ID Status Reason Start Date Expiration Date V isits Requested Visits Authorized [id number] Authorized 11/28/2023 11/27/2024 1 1 Reason for Visit * Outpatient (Routine) - Closed Specialty Diagnoses / Procedures Referred By Albino henao Referred To Contact Cardiovascular Disease Diagnoses Atrial Fibrillation Paroxysmal (HCC) Sarina Miller P.A.-C., M.S. [address] [place] [phone] [facility] Referral ID Status Reason Start Date Expiration Date Visits Re quested Visits Authorized [id number] Closed 06/16/2023 06/15/2026 1 1 Encounter Details Date Type Department Care Team (Latest Contact Info) Description 11/28/2023 1:00 PM CDT Telemedicine Department of Cardiovascular Medicine in [place], [place] [address] [place] [phone] Sarina Miller P.A.-C., M.S. [address] [place] [phone] Stenosis Aortic Valve Acquired (Primary Dx); Atrial Fibrillation Paroxysmal (HCC) Social History Tobacco Use Types Packs/Day [...] How often do you attend chur or confucianist services? More than 4 times per year 04/11/2022 Do you belong to any clubs o r organizations such as restorationism groups, unions, fraternal [...] Average Number of Drinks Not on file 022 Frequency of Binge Drinking Not on file 03/22 Overall Financial Resource Strain (CARDIA) Answe r Date Recorded How hard is it for you to pa y for the very basics like food, housing, medical care, and heating? Not hard at all 05/13/2023 [facility] - Occupational Stress [...] your living situation today? I have a [facility] place to live 05/13/2023 Education Answer [...] documented as of this encounter Progress Notes * Sarina Miller P.A.-C., M.S. - 11/28/2023 1:00 PM CDT SUBJECTIVE CHIEF COMPLAINT/REASON FOR CONSULT LAAO follow-up via NF2F HISTORY OF PRESENT ILLNESS David Castro is a pleasant 82 y.o. male who is approximately 6-weeks status post LAAO device implant on 10/17/2023 with a 27 mm Watchman FLX PRO device performed by Dr. Andrade. 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 He underwent a successful LAAO implant in the setting of atrial fibrillation with elevated [id number] VASc of 4 with a relative contraindication to long-term anticoagulation secondary to GI bleeding. There were no procedural complications. Postprocedure he was initiated on Eliquis 2.5 mg twice daily for 3-6 months, with final duration pending follow-up and any bleeding concerns. Plan is to transition to Plavix 75 mg daily monotherapy lifelong following discontinuation of Eliquis. Today I visited with Mr. Castro and his via video visit. He reports he has been doing good since the procedure. Groin access site has healed without concern. Denies any chest pain or shortness of breath. Remains quite active and reports that he walked 5 miles earlier today without any symptoms. Denies any evidence of bleeding or melena. Is tolerating Eliquis without side effects. He is planning a knee surgery in the near future and queried whether it would be safe to hold Eliquis for that. OUTPATIENT MEDICATIONS Active Home Medications Medication Sig Taking allopurinol (ZYLOPRIM) 100 mg tablet Take 100 mg by mouth every morning. amoxicillin (AMOXIL) 500 mg capsule Take 4 capsules by mouth once as needed (Dental procedures). apixaban (ELIQUIS) 2.5 mg tablet Take 1 tablet (2.5 mg total) by mouth 2 (two) times a day. calcitRIOL (ROCALTROL) 0.25 mcg capsule Take 1 capsule by mouth 3 (three) times a week. Monday, Monday, Monday cholecalciferol (VITAMIN D3) 50 mcg (2,000 Unit) tablet Take 1 tablet by mouth daily. docusate sodium (COLACE) 100 mg capsule Take 100 mg by mouth daily. famotidine (PEPCID) 20 mg tablet TAKE 1 TABLET BY MOUTH AT BEDTIME gentamicin (GARAMYCIN) 0.1 % cream Apply 1 Application topically as needed. metoprolol tartrate (LOPRESSOR) 25 mg tablet Take 12.5 mg by mouth 2 (two) times a day. multivitamin renal failure (DIALYVITE) 100-1 mg tablet Take 1 tablet by mouth daily with dinner. pantoprazole (PROTONIX) 40 mg EC tablet Take 40 mg by mouth 2 (two) times a day before breakfast and dinner. sucralfate (CARAFATE) 100 mg/mL suspension Take 10 mL (1 g total) by mouth every 6 (six) hours as needed (If esophageal bleeding.). torsemide (DEMADEX) 20 mg tablet Take 1 tablet (20 mg total) by mouth daily. triamcinolone (KENALOG) 0.1 % cream Apply 1 Application topically as needed for irritation. OBJECTIVE There were no vitals taken for this visit. PHYSICAL EXAMINATION General: Alert and oriented. No acute distress. Pleasant and conversant. Patient not physically examined due to NF2F visit. DIAGNOSTICS Labs: Latest Reference Range & Units 11/27/23 09:49 Hemoglobin 13.2 - 16.6 g/dL 12.4 (L) Hematocrit 38.3 - 48.6 % 38.1 (L) Erythrocytes 4.35 - 5.65 x10(12)/L 3.79 (L) MCV 78.2 - 97.9 fL 100.5 (H) RBC Distrib Width 11.8 - 14.5 % 12.7 Platelet Count 135 - 317 x10(9)/L 152 Leukocytes 3.4 - 9.6 x10(9)/L 5.6 Neutrophils 1.56 - 6.45 x10(9)/L 3.79 Lymphocytes 0.95 - 3.07 x10(9)/L 0.36 (L) Monocytes 0.26 - 0.81 x10(9)/L 0.51 Eosinophils 0.03 - 0.48 x10(9)/L 0.83 (H) Basophils 0.01 - 0.08 x10(9)/L 0.06 Creatinine 0.74 - 1.35 mg/dL 4.46 (H) Estimated GFR (eGFR) >=60 mL/min/BSA <15 (L) (L): Data is abnormally low (H): Data is abnormally high JASON: 11/27/2023 Final Impressions 1. Status post WATCHMAN left [...] aortic valve with mild aortic valve regurgitation and npbdbjpd-bg-irxmyl aortic stenosis by visual estimate on 2D imaging (recommend transthoracic echocardiogram for further evaluation as clinically indicated). 5. Moderate tricuspid valve regurgitation. There is tricuspid prolapse. 6. Due to patient's achalasia, the descending aorta was not able to be well visualized on today's examination. 7. 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 8. Agitated saline injection(s) performed during sedation no apparent peafo-io-wgkf shunting at theatrial level at rest or with Valsalva maneuver (previously seen transseptal atrial puncture not well visualized on today's examination). ASSESSMENT / PLAN #1 Paroxysmal atrial fibrillation/atrial flutter s/p LAAO device (Watchman FLX PRO) 10/17/2023 #2 History of GI bleeding #3 ESRD on peritoneal dialysis #4 Coronary artery calcification #5 Moderate aortic valve stenosis with mild aortic regurgitation #6 Mitral annular calcification #7 Moderate tricuspid regurgitation #8 Hypertension #9 Achalasia #10 Esophageal ulcers, treated #11 History of craniotomy due to brain abscess, 2001 David Castro is a very pleasant 82 y.o. male who is approximately 6 weeks status post LAAOdevice implant on 10/17/[address] Andrade. I have reviewed the JASON results and discussed with the patient. No thrombus or leak identified. Labs reviewed. Hemoglobin is fairly stable at 12.4. Platelet count and white count normal at 152 and 5.6 respectively. Creatinine is 4.46 in the setting of ESRD on peritoneal dialysis. Instructions for management of anticoagulation: Continue Eliquis 2.5 mg twice daily 6 months if no bleeding concerns. I have recommended Mr. Castro let me know if he does develop any bleeding or side effects. After 6 months, transition to Plavix 75 mg daily monotherapy lifelong barring any complications. A prescription has been sent to his mailorder pharmacy. Mr. Castro may safely hold Eliquis for 3 days for planned knee surgery with resumption after surgery to complete his course. Aortic valve stenosis was noted to be now moderate to possibly severe on JASON. Transthoracic echocardiogram was recommended. He is asymptomatic and EF remains preserved. I have placed orders for [facility] follow-up with standard valve testing for fall. His valve was last evaluated by Dr. Bennett inSeptember 2022. I have encouraged Mr. Castro to monitor for any new symptoms and let me know if weneed to move up that evaluation. SBE prophylaxis recommended for 6 months post Watchman device. Instructions and education: Next device follow-up visit is approximately 1 year from implant about 10/17/2024 with clinic visit, JASON (due to renal function), CBC and creatinine with eGFR. Sarina Miller P.A.-C., M.S. 11/28/2023 Billing: Total time 30 minutes documented in this encounter Plan of Treatment Scheduled Orders Name Type Priority Associated Diagnoses Order Schedule Echo Transesophageal (JASON) Echocardiography Routine Atrial Fibrillation Paroxysmal (HCC) Expected: 10/17/2024 (Approximate) , Expires: 02/26/2025 CBC with Differential, Blood Lab Routine Atrial Fibrillation Paroxysmal (HCC) Expected: 10/17/2024 (Approximate) , Expires: 02/26/2025 Creatinine with Estimated GFR Lab Routine Atrial Fibrillation Paroxysmal (HCC) Expected: 10/17/2024 (Approximate) , Expires: 02/26/2025 CBC with Differential, Blood Lab Routine Stenosis Aortic Valve Acquired Expected: 04/29/2024 (Approximate) , Expires: 11/27/2024 Comprehensive Metabolic Panel Lab Routine Stenosis Aortic Valve Acquired Expected: 04/29/2024 (Approximate) , Expires: 02/26/2025 ECG 12 Lead ECG Routine Stenosis Aortic Valve Acquired Expected: 04/29/2024 (Approximate) , Expires: 02/26/2025 DX Chest AP or PA and Lateral 2 Views Imaging RAD - Routine (most inpatients and all outpatients) Stenosis Aortic Valve Acquired Expected: 04/29/2024 (Approximate) , Expires: 02/26/2025 Echo Transthoracic (TTE) Echocardiography Routine Stenosis Aortic Valve Acquired Expected: 04/29/2024 (Approximate) , Expires: 11/27/2024 NT-Pro B-Type Natriuretic Peptide (BNP) Lab Routine Stenosis Aortic Valve Acquired Expected: 04/29/2024 (Approximate) , Expires: 02/26/2025 Scheduled Referrals Name Type Priority Associated Diagnoses Order Schedule Cardiovascular Disease office visit (clinic) Outpatient Referral Routine Expect ed: 10/17/2024 (Approximate), Expires: 02/26/2025 Cardiovascular Disease office visit (clinic) Outpatient Referral Routine Expect ed: 04/29/2024 (Approximate), Expires: 02/26/2025 documented as of this encounter Visit Diagnoses Diagnosis Stenosis Aortic Valve Acquired- Primary Atrial Fibrillation Paroxysmal (HCC) documented in this encounter Care Teams Maintenance Shop Laborer Relationship Specialty Start Date End Date Elsewhere, Pcp PCP - General Internal Medicine 11/24/23 documented as of this encounter
--- OUTSIDE RECORDS SUMMARY | 2023-12-07 10:06 | XMS_ITS | Encounter Summary ---
Author Name Unknown Organization [facility] Address [address] [place] [address] Care Team Providers Care Shipper And Receiving Name Role Phone Elsewhere, Pcp Primary Care Provider Unavailabl e Reason for Referral * Outpatient (Routine) - Closed Specialty Diagnoses / Procedures Referred By Albino henao Referred To Contact Diagnoses Atrial Fibrillation Paroxysmal (HCC) Procedures Echo Transesophageal (JASON) Sarina Miller P.A.-C., M.S. [address] [place] [phone] [facility] Referral ID Status Reason Start Date Expiration Date Visits Re quested Visits Authorized [id number] Closed 06/16/2023 06/15/2024 1 1 Reason for Visit * Outpatient (Routine) - Closed Specialty Diagnoses / Procedures Referred By Contac t Referred To Contact Diagnoses Atrial Fibrillation Paroxysmal (HCC) Procedures Echo Transesophageal (JASON) Sarina Miller P.A.-C., M.S. [address] [place] [phone] [facility] Referral ID Status Reason Start Date Expiration Date Visits Re quested Visits Authorized [id number] Closed 06/16/2023 06/15/2024 1 1 Encounter Details Date Type Department Care Team (Latest Contact Info) Description 11/27/2023 10:01 AM CDT - 11/27/2023 11:59 PM CDT Hospital Encounter Department of Cardiovascular Diseases in [place], [place] [address] [place] [phone] Sarina Miller P.A.-C., M.S. [address] [place] [address] Atrial Fibrillation Paroxysmal (HCC) Discharge Disposition: Home or Self Care Social History Tobacco Use Types Packs/Day Years [...] often do you attend chur ch or islam services? More than 4 times per year 04/11/2022 Do you belong to any clubs o r organizations such as anabaptist groups, unions, fraternal or [...] and heating? Not hard at all 05/13/2023 [facility] - Occupational Stress Questionnaire Answer Date Recorded [...] your living situation today? I have a [facility] place to live 05/13/2023 Education Answer [...] Pulse 76 11/27/2023 11:25 AM CDT Temperature - - Respiratory Rate 15 11/27/2023 11:25 AM CDT Oxygen Saturation 97% 11/27/2023 11:25 AM CDT Inhaled Oxygen Concentration - - Weight - - Height - - Body Mass Index - - documented in this encounter Medications at Time of Discharge Medication Sig Dispensed Refills Start Date End Date allopurinol (ZYLOPRIM) 100 mg tablet Take 100 mg by mouth every morning. 11/09/2018 amoxicillin (AMOXIL) 500 mg capsule Take 4 capsules by mouth once as needed (Dental procedures). 05/30/2022 apixaban (ELIQUIS) 2.5 mg tablet Take 1 tablet (2.5 mg total) by mouth 2 (two) times a day. 60 tablet 5 10/17/2023 04/14/2024 calcitRIOL (ROCALTROL) 0.25 mcg capsule Take 1 capsule by mouth 3 (three) times a week. Monday, Monday, Monday12/27/2018 cholecalciferol (VITAMIN D3) 50 mcg (2,000 Unit) tablet Take 1 tablet by mouth daily. 08/29/2022 docusate sodium (COLACE) 100 mg capsule Take 100 mg by mouth daily. famotidine (PEPCID) 20 mg tablet TAKE 1 TABLET BY MOUTH AT BEDTIME 100 tablet 2 07/25/2023 gentamicin (GARAMYCIN) 0.1 % cream Apply 1 Application topically as needed. 06/01/2022 metoprolol tartrate (LOPRESSOR) 25 mg tablet Take 12.5 mg by mouth 2 (two) times a day. multivitamin renal failure (DIALYVITE) 100-1 mg tablet Take 1 tablet by mouth daily with dinner. 30 tablet 12/08/2021 pantoprazole (PROTONIX) 40 mg EC tablet Take 40 mg by mouth 2 (two) times a day before breakfast and dinner. 06/04/2022 sucralfate (CARAFATE) 100 mg/mL suspension Take 10 mL (1 g total) by mouth every 6 (six) hours as needed (If esophageal bleeding.). 420 mL 1 08/07/2023 torsemide (DEMADEX) 20 mg tablet Take 1 tablet (20 mg total) by mouth daily. 12/12/2021 triamcinolone (KENALOG) 0.1 % cream Apply 1 Application topically as needed for irritation. 09/20/2022 documented as of this encounter H&P Notes * Brian Ontiveros Admin Closure - 11/27/2023 10:30 AM CDT Administrative Closure: This record is being filed as incomplete for a missing H&P. Health Information Management Services documented in this encounter Plan of Treatment Not on file documented as of this encounter Procedures Procedure Name Priority Date/Time Associated Diagnosis Comments (JASON) 2D WITH COLOR, LIMITED DOPPLER AND CONTRAST Routine 11/27/2023 11:15 AM CDT Atrial Fibrillation Paroxysmal (HCC) documented in this encounter Results * (JASON) 2D WITH COLOR, LIMITED DOPPLER AND CONTRAST (11/27/2023 11:15 AM CDT) Ejection Fraction 60 [facility] Anatomical Region Laterality Modality Echocardiography 11/27/2023 [...] and the findings as documented in the per assessment nurse and also performed a pertinent examination including [...] performed at the request of the primary package delivery room service runner. Adult probe inserted without difficulty. LEFT VENTRICLE:Normal [...] Agitated saline injection(s) performed during sedation. No azzbo-wz-qjiz shunt at atrial level at rest or [...] Sedation Narrator or other pertinent record in [facility] for additional procedure and sedation information. [...] valve ??with mild aortic valve regurgitation and nagoedsd-zv-nwjgkj aortic stenosis by visual estimate on 2D imaging (recommend transthoracic echocardiogram for further evaluation as clinically indicated). 5. Moderate tricuspid valve regurgitation. There is tricuspid prolapse. 6. Due to patient's achalasia, the descending aorta was not able to be well visualized on today's examination. 7. 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 8. Agitated saline injection(s) performed during sedation ??no apparent knqha-fu-xxgq shunting at the atrial level at rest [...] aortic valve with mild aortic valve regurgitation rzqfdmekwdl-rk-uhxney aortic stenosis by visual estimate on 2D imaging(recommend transthoracic echocardiogram for further evaluation asclinically indicated). 5. Moderate tricuspid valve regurgitation. There is tricuspid prolapse. 6. Due to patient's achalasia, the descending aorta was not able to bewell visualized on today's examination. 7. 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 8. Agitated saline injection(s) performed during sedation no iyqemqmlokmxs-zx-fswr shunting at the atrial level at rest [...] and the findings as documented in the per assessment nurse and alsoperformed a pertinent examination including a heart, airway and lungassessment. Mallampati Assessment: As documented in the RN pre-procedureassessment. Sedation plan: Transesophageal echo - moderate sedation. ASAphysical status score: Class III. The patient's identity and all neededequipment were confirmed and a final confirmatory pause was performed bythe team immediately prior to start. PROCEDURAL ECHO FINDINGS:Transesophageal echocardiogram performed at the request of the primaryservice in home sales consultant. Adult probe inserted without difficulty. LEFT [...] cava. Agitated saline injection(s) performed during sedation. Chjtiew-zk-oect shunt at atrial level at rest or [...] See Sedation Narrator or other pertinentrecord in [facility] for additional procedure and sedation information.Physician signature for procedural medications and patient discharge whenDC criteria met. For the complete report, see the Order-Level Documents. Sarina Miller P.A.-C., M.S. CV ECHO PROCEDURES documented in this encounter Visit Diagnoses Diagnosis Atrial Fibrillation Paroxysmal (HCC) documented in this encounter Administered Medications Inactive Administered Medications - up to 3 most recent administrations Medication Order MAR Action Action Date Dose Rate Site fentaNYL injection (SUBLIMAZE) As needed, Starting on Mon11/27/23 at 1050, Intraprocedure (CV) Given 11/27/2023 10:55 AM CDT 25 mcg Given 11/27/2023 10:50 AM CDT 50 mcg lidocaine 5 % ointment 1 Application (XYLOCAINE) 1 Application, mouth/throat, Once, On Mon11/27/23 at 1030, For 1 dose, Intraprocedure - Diagnostic, Apply 1 inch on tongue blade. Place ointment side down in back of mouth, as far back as possible. Instruct patient to swallow any dissolved ointment. After 2-3 minutes, check gag reflex. May repeat once if gag reflex remains. Administer first dose within 10 minutes of expected physician arrival to procedure. MAX of 20 g of ointment/day Given 11/27/2023 10:33 AM CDT 1 Application midazolam (PF) injection (VERSED) As needed, Starting on Mon11/27/23 at 1050, Intraprocedure (CV) Given 11/27/2023 10:55 AM CDT 1 mg Given 11/27/2023 10:50 AM CDT 2 mg NaCl 0.9% bacteriostatic 0.9 % injection 20 mL 20 mL, intravenous, Once, On Mon11/27/23 at 1030, For 1 dose, Intraprocedure - Diagnostic, See Martha. Given 11/27/2023 11:10 AM CDT 20 mL sodium chloride 0.9 % injection 10 mL 10 mL, intravenous, Once, On 11/27/23 at 1030, For 1 dose, Intraprocedure - Diagnostic, Prior to and following infusion and between multiple consecutive infusions: sodium chloride 0.9 % injection Given 11/27/2023 10:31 AM CDT 10 mL documented in this encounter Care Teams Shipper And Receiving Relationship Specialty Start Date End Date Elsewhere, Pcp PCP - General Internal Medicine 11/24/23 documented as of this encounter
--- OUTSIDE RECORDS SUMMARY | 2023-12-07 10:06 | XMS_ITS ---
Author Name Unknown Organization [facility] Address [address] [place] [address] Care Team Providers Care Quantometer Operator Name Role Phone Unavailable Unavailable Unavailable Surgery Details Not on file Complications Check Surgery Details section. Procedure Estimated Blood Loss Check Surgery Details section. Procedure Findings Check Surgery Details section. Procedure Specimens Taken Check Surgery Details section.
--- OUTSIDE RECORDS SUMMARY | 2023-12-07 10:06 | XMS_ITS | Encounter Summary ---
Author Name Unknown Organization [facility] Address [address] [place] [address] Care Team Providers Care Hazmat Technician Name Role Phone Elsewhere, Pcp Primary Care Provider Unavailabl e Reason for Visit * Reason Onset Date Comments After Visit Question 11/06/2023 Eliquis and knee surgery Encounter Details Date Type Department Care Team (Latest Contact Info) Description 11/06/2023 Clinical Communication Department of Cardiovascular Medicine in [place], [place] [address] [place] [address] Viki Nolasco APRN, C.N.P., M.S.N. [address] [place] [address] After Visit Question (Eliquis and knee surgery) Social History Tobacco Use Types Packs/Day Years [...] often do you attend chur ch or mormon services? More than 4 times per year 04/11/2022 Do you belong to any clubs o r organizations such as hinduism groups, unions, fraTRADE TO REBATE or athletic groups, or school groups? Yes [...] and heating? Not hard at all 05/13/2023 [facility] - Occupational [...] your living situation today? I have a [place] home place to live 05/13/2023 Education Answer Date [...] documented as of this encounter Miscellaneous Notes * Telephone Encounter - Sanjuanita Lazcano R.N. - 11/06/2023 1:30 PM CDT INFORMATION DISCUSSED Per Dr Andrade I would recommend he defer his meniscus procedure until at least he has completed his imaging/follow-up with us to make sure that there is no device associated thrombus. This was relayed to Mr and Mrs. Castro and they will reschedule the Meniscus procedure and advised at the visit on 11/27 to ask about stopping the Eliquis prior to the procedure for when it is rescheduled PLAN Disposition/Recommendation: self-care as above appropriate at this time, patient encouraged to callback with questions Education: patient/caller able to teach back Caller agreeable to plan of care: yes The following references were used: provider per provider recommendations. documented in this encounter Plan of Treatment Not on file documented as of this encounter Visit Diagnoses Not on filedocumented in this encounter Care Teams Hazmat Technician Relationship Specialty Start Date End Date Elsewhere, Pcp PCP - General Internal Medicine 06/05/22 11/23/23 documented as of this encounter
--- OUTSIDE RECORDS SUMMARY | 2023-12-07 10:06 | XMS_ITS | Referral Summary ---
Author Name Unknown Organization [facility] Address [address] [place] [address] Care Team Providers Care Human Resources Executive Name Role Phone Elsewhere, Pcp Primary Care Provider Unavailabl e Source Comments Patient records contain information from all sites at [facility]. For routine questions regarding patient records, call [phone] during business hours, M-F 8:00 AM - 5:00 PM Central Time. Record requests for emergency care only can be directed to [phone] at any time.[facility] Encounters Date Type Department Care Team Description 11/28/2023 1:00 PM CDT Telemedicine Department of Cardiovascular Medicine in [address] [phone] Sarina Miller, P.A.-C., M.S. Stenosis Aortic Valve Acquired (Primary Dx); Atrial Fibrillation Paroxysmal (HCC) 11/27/2023 10:01 AM CDT - 11/27/2023 11:59 PM CDT Hospital Encounter Department of Cardiovascular Diseases in [address] [phone] Sarina Miller P.A.-C., M.S. Atrial Fibrillation Paroxysmal (HCC) Discharge Disposition: Home or Self Care 11/24/2023 9:30 AM CDT Clinical Communication Virtual Review in [place], [place] 200 [place] [address] Pre-visit Intake 11/06/2023 Clinical Communication Department of Cardiovascular Medicine in [place], [place] [address] [place] [phone] Viki Nolasco APRN, C.N.P., M.S.N. After Visit Question (Eliquis and knee surgery) 10/17/2023 12:06 PM MARKETING MANAGER Anesthesia Event Division of Cardiovascular Diseases in [address] [phone] Manda Irby APRN, Ester SERRANO Mark M, M.D. 10/17/2023 7:40 AM MARKETING MANAGER - 10/17/2023 8:56 AM MARKETING MANAGER Hospital Encounter Department of Cardiovascular Diseases in [address] [phone] Radha Andrade M.B.B.S. Atrial Fibrillation Paroxysmal (HCC) Discharge Disposition: Home or Self Care 10/17/2023 11:15 AM MARKETING MANAGER - 10/17/2023 3:15 PM MARKETING MANAGER Surgery Division of Cardiovascular Diseases in [address] [phone] Radha Andrade M.B.B.S. CLAY CLOSURE WITH IMPLANT 10/17/2023 8:57 AM MARKETING MANAGER - 10/17/2023 7:44 PM MARKETING MANAGER Hospital Encounter Division of Cardiovascular Diseases in [address] [phone] Radha Andrade M.B.B.S. Atrial Fibrillation Paroxysmal (HCC) Discharge Disposition: Home or Self Care 10/16/2023 2:09 PM MARKETING MANAGER - 10/16/2023 11:59 PM MARKETING MANAGER Hospital Encounter Department of Laboratory Medicine and Pathology, [facility] in [place], [place] [address] [place] [phone] Radha Andrade M.B.B.S. Atrial Fibrillation Paroxysmal (HCC) Discharge Disposition: Home or Self Care 10/16/2023 1:00 PM MARKETING MANAGER Virtual Visit Department of Cardiovascular Medicine in [place], [place] [address] [place] [phone] Radah Andrade M.Eulogio.B.S. Abbey Elliott, R.N. Atrial Fibrillation Paroxysmal (HCC) (Primary Dx) from Last 3 Months Allergies Active Allergy Reactions Criticality Noted Date [...] Aortic Valve Acquired 05/18/2023 Hemorrhage Gastrointestinal 06/05/2022 Electrophysiology Tech (Current) Anticoagulant Treatment 11/20 Hypertension And End [...] Acidosis Unspecified 12/27/2018 022 Thrombocytopenia 10/20/2016 12/09/2021 Immunizations Name Administration Dates Next Due Influenza, [...] How often do you attend chur or hindu services? More than 4 times per year 04/11/2022 Do you belong to any clubs o r organizations such as quaker groups, unions, fraternal or [...] and heating? Not hard at all 05/13/2023 [facility] [place] of Occupat ional Health - Occupational Stress [...] your living situation today? I have a st [place] place to live 05/13/2023 Education Answer Date [...] (177 lb 7.5 oz) 10/17/2023 10:05 AM MARKETING MANAGER Height 172.5 cm (5' 7.91) 10/17/2023 10:[address] Body Mass Index 27.05 10/17/2023 10:05 AM MARKETING MANAGER Plan of Treatment Not on file Medical Devices Implanted Type Area Medical Assisting Instructor Device Identifier Shelf Expiration Date Model / Serial / Lot Osteomed-Plate Straight 2 Hole Med - [id number] Implanted:Qty: 1 on 06/19/2002 Hardware e.g. pins/screws/ rods [employer] Description:Device Manufactu rer - [employer]. Device Status Text - [id number]. Osteomed-Plate Josef Hole Large - Baptiste [id number] Implanted:Qty: 2 on 06/19/2002 Hardware e.g. pins/screws/ rods [employer] Description:Device Manufactu rer - [employer]. Device Status Text - [id number]. Osteomed-Screw Auto-Drive 1.6 X 4 - Baptiste [id number] Implanted:Qty: 16 on 06/19/2002 Hardware e.g. pins/screws/ rods [employer] Description:Device Manufactu rer - [employer]. Device Status Text - [id number]. Dev Clay Cls [facility] Pro Del Sys 27 - [id number] Implanted:Qty: 1 on 10/17/2023 by Radha Andrade M.B.B.S. at [facility] Mesh or Patch Wiren Board 05/07/2026 [id number] / / [id number] Procedures Procedure Name Priority Date/Time Associated Diagnosis [...] - PROCEDURAL GUIDANCE Routine 10/17/2023 4:25 PM MARKETING MANAGER Atrial Fibrillation Paroxysmal (HCC) HEART RHYTHM PROCEDURE Routine 2:19 PM MARKETING MANAGER Atrial Fibrillation Paroxysmal (HCC) HEART RHYTHM PROCEDURE Routine 2:19 PM MARKETING MANAGER Atrial Fibrillation Paroxysmal (HCC) ADULT OXYGEN THERAPY Routine 10/17/2023 2:00 PM MARKETING MANAGER ADULT OXYGEN THERAPY Routine 10/17/2023 2:00 PM MARKETING MANAGER ACT, POCT, B Routine 10/17/2023 1:38 PM MARKETING MANAGER ACT, POCT, B Routine 10/17/2023 1:20 PM MARKETING MANAGER LDA ANE ENDOTRACHEAL AIRWAY Routine 10/17/2023 12:19 PM MARKETING MANAGER POTASSIUM, S/P Routine 10/17/2023 10:25 AM MARKETING MANAGER ECG Routine 10/16/2023 3:35 PM MARKETING MANAGER Atrial Fibrillation Paroxysmal (HCC) TYPE AND SCREEN Routine 10/16/2023 2:33 PM MARKETING MANAGER Atrial Fibrillation Paroxysmal (HCC) PROTHROMBIN TIME (PT), P Routine 10/16/2023 2:33 PM MARKETING MANAGER Atrial Fibrillation Paroxysmal (HCC) COMPREHENSIVE METABOLIC PANEL, S/P Routine 10/16/2023 2:33 PM MARKETING MANAGER Atrial Fibrillation Paroxysmal (HCC) CBC WITH DIFFERENTIAL, B Routine 10/16/2023 2:33 PM MARKETING MANAGER Atrial Fibrillation Paroxysmal (HCC) from Last 3 Months or Most Recently Relevant to Health Maintenance Results * (JASON) 2D WITH COLOR, LIMITED DOPPLER AND CONTRAST (11/27/2023 11:15 AM CDT) Ejection Fraction 60 [facility] Anatomical Region Laterality Modality Echocardiography 11/27/2023 10:1 [...] and the findings as documented in the assessment services manager and also performed a pertinent examination including [...] performed at the request of the primary division service manager. Adult probe inserted without difficulty. LEFT VENTRICLE:Normal [...] Agitated saline injection(s) performed during sedation. No rnumd-ja-ntxt shunt at atrial level at rest or [...] Sedation Narrator or other pertinent record in Epic for additional procedure and sedation information. Physician [...] valve ??with mild aortic valve regurgitation and bwtbjyce-dp-eofiid aortic stenosis by visual estimate on 2D imaging (recommend transthoracic echocardiogram for further evaluation as clinically indicated). 5. Moderate tricuspid valve regurgitation. There is tricuspid prolapse. 6. Due to patient's achalasia, the descending aorta was not able to be well visualized on today's examination. 7. 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 8. Agitated saline injection(s) performed during sedation ??no apparent oevax-sq-lqwi shunting at the atrial level at rest [...] aortic valve with mild aortic valve regurgitation tmwpmbynmty-of-mldxen aortic stenosis by visual estimate on 2D imaging(recommend transthoracic echocardiogram for further evaluation asclinically indicated). 5. Moderate tricuspid valve regurgitation. There is tricuspid prolapse. 6. Due to patient's achalasia, the descending aorta was not able to bewell visualized on today's examination. 7. 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 8. Agitated saline injection(s) performed during sedation no hegscznndlrds-rk-qzjq shunting at the atrial level at rest [...] and the findings as documented in the assessment services manager and alsoperformed a pertinent examination including a heart, airway and lungassessment. Mallampati Assessment: As documented in the RN pre-procedureassessment. Sedation plan: Transesophageal echo - moderate sedation. ASAphysical status score: Class III. The patient's identity and all neededequipment were confirmed and a final confirmatory pause was performed bythe team immediately prior to start. PROCEDURAL ECHO FINDINGS:Transesophageal echocardiogram performed at the request of the primaryservice network systems consultant. Adult probe inserted without difficulty. LEFT [...] cava. Agitated saline injection(s) performed during sedation. Wvfbfzc-ik-xmil shunt at atrial level at rest or [...] See Sedation Narrator or other pertinentrecord in [facility] for additional procedure and sedation information.Physician [...] Miller P.A.-C., M.S. LAB BLO OD ADD-ON [facility] [address] 200 [place] [address] [facility] 200 [place] [address] * (ABNORMAL) Creatinine with Estimated GFR (11/27/2023 9:49 AM CDT) Creatinine 4.46(H) 0.74 - 1.35 mg/dL 11/27/2023 11:16 AM CDT DTL Estimated GFR (eGFR) <15(L) >=60 mL/min/BSA 11/27/2023 11:16 AM CDT DTL Comment: Estimated GFR calculated using the 2020 CKD_EPI creatinine equation. Blood (Blood, Venous) 11/27/2023 9:49 AM CDT 11/27/2023 10:56 AM CDT Sarina Miller P.A.-C., M.S. LAB BLO OD ADD-ON [facility] [address] [place] [address] * Echo Transesophageal (JASON) - Procedural Guidance (10/17/2023 4:25 PM MARKETING MANAGER) Ejection Fraction 60 [facility] Anatomical Region Laterality Modality Other 10/17/2023 7:40 AM MARKETING MANAGER Narrative 10/17/2023 2:35 PM MARKETING MANAGER For the complete report, see the Order-Level [...] 14. Residual iatrogenic atrial septal defect with vehb-xx-ichtz shunt at the site of transseptal puncture. [...] 14. Residual iatrogenic atrial septal defect with zfvt-bw-bntjp shunt atthe site of transseptal puncture. 15. The remaining findings are unchanged from the pre-procedural images. For the complete report, see the Order-Level Documents. Ulilen Mendes Raymond Giles CV ECHO PROCEDURE S * CLAY CLOSURE W/ IMPLANT, TRANSESPOHAGEAL (JASON) ECHOCARDIOGRAM (10/17/2023 2:19 PM MARKETING MANAGER) Anatomical Region Laterality Modality X-Ray Angiograph y 10/17/2023 1:01 PM MARKETING MANAGER Narrative 10/22/2023 9:11 AM MARKETING MANAGER For the complete report, see the Order-Level [...] with the modified Seldinger technique. A 16 Micronesian and 8 Micronesian sheath were placed in situ. ?? Heparin bolus was administered maintaining an ACT of >300 seconds. ??Baseline JASON evaluation demonstrated a small anterior pericardial effusion that remained stable throughout the procedure. ??Left atrial appendage anatomy was amenable to closure. ??There was no appendage thrombus. ?? We advanced a Tivra connect system into the SVC and pulled [...] 15-20%. ??Tug test was satisfactory. The Position, [place], Size, Seal (PASS) criteria were satisfied. The [...] guidance with themodified Seldinger technique. A 16 Micronesian and 8 Micronesian sheath were placedin situ. Heparin bolus was [...] evidence of leak. There was excellent compression [id number]%. Tug test was satisfactory. The Position, [place], Size, Seal(PASS) criteria were satisfied. The device [...] (Activated Clotting Time), POCT (10/17/2023 1:38 PM MARKETING MANAGER) Only the most recent of2 resultswithin the time period is included. Activated Clotting Time, POCT 310(H) 84 - 139 sec 10/17/2023 1:49 PM MARKETING MANAGER PCSM Blood 10/17/2023 1:38 PM MARKETING MANAGER 10/17/2023 1:50 PM MARKETING MANAGER Unknown Provider LAB POCT ORDERABLES - DEVICE POC RST [facility] INPATIENT LABS [address] [place] [address], [facility] PCSM [facility] POC [address] [place] [address] * LDA ANE ENDOTRACHEAL AIRWAY (10/17/2023 12:19 PM MARKETING MANAGER) Narrative Manda Irby APRN, CRNA, D.N.P. - 10/17/2023 12:19 PM MARKETING MANAGER Manda Irby APRN, CRNA, D.N.P. ? 10/17/2023 12:35 PM Airway Date/Time: 10/17/2023 12:19 PM Performed by: Manda Irby APRN, CRNA D.N.P. Authorized by: Manda Irby APRN, CRNA, D.N.P. ?? Patient location during procedure: OR / Procedure Area PROCEDURE DETAILS: Mask difficulty assessment: not attempted Final airway type: video laryngoscope Laryngeal Manipulation: no ?? Final best view of glottic structures - Cormack/Lehane Score: grade 1 ETT location: oral VL device: glide scope Chester scope blade size: 4 Tube size: 7.5 [...] Events: no complications Manda Irby APRN, CRNA, D.N.P. ANESTH ESIA ORDERABLES * Potassium (10/17/2023 10:25 AM MARKETING MANAGER) Pathologist [facility] Potassium, S 4.6 3.6 - 5.2 mmol/L 10/17/2023 11:29 AM MARKETING MANAGER DTL Blood (Blood, Venous) 10/17/2023 10:25 AM MARKETING MANAGER 10/17/2023 11:18 AM MARKETING MANAGER Radha Giles LAB BLOOD ADD-ON [facility] [address] [place] [address], [facility] [address] [place] [address] * ECG 12 Lead (10/16/2023 3:35 PM MARKETING MANAGER) Ventricular Rate ECG/Min 63 BPM MUSE [place] Interval 192 ms MUSE QRSD Interval 122 ms MUSE QT Interval 438 ms MUSE QTC Interval 448 ms MUSE P [place] 96 degrees MUSE R [place] -4 degrees MUSE T Wave [place] 4 degrees MUSE 10/16/2023 3:35 PM MARKETING MANAGER 10/16/2023 3:45 PM MARKETING MANAGER Impressions MUSE - 10/16/2023 3:45 PM MARKETING MANAGER Sinus rhythm Premature atrial complexes Non-specific intra-ventricular [...] has decreased Reviewed by NICHOL Howard Radha SanchezB.S. ECG ORDERABLES Performing Organization Address [facility] Co de Phone Number MUSE NA * Prothrombin Time (PT) (10/16/2023 2:33 PM MARKETING MANAGER) Prothrombin Time, P 11.9 9.4 - 12.5 sec 10/16/2023 3:12 PM MARKETING MANAGER DTL INR 1.1 0.9 - 1.1 10/16/2023 3:12 PM MARKETING MANAGER DTL Comment: ----ADDITIONAL INFORMATION---- Standard intensity warfarin therapeutic range: 2.0 to 3.0 ?? High intensity warfarin therapeutic range: 2.5 to 3.5 Blood (Blood, Venous) 10/16/2023 2:33 PM MARKETING MANAGER 10/16/2023 2:56 PM MARKETING MANAGER Radha SanchezB.S. LAB BLOOD ADD-ON Performing Organization Address City/[facility]/ZIP Co de Phone Number [facility] [address] [place] [address], [facility] DTL [facility][note 3] [address] [place] [address] * Type and Screen (with Reflex Antibody ID) (10/16/2023 2:33 PM MARKETING MANAGER) Pathologist [facility] ABORh O Pos Not applicable 10/16/2023 3:56 PM MARKETING MANAGER ETRM Antibody Screen Negative Negative 10/16/2023 4:25 PM MARKETING MANAGER ETRM Type & Screen Expiration 12/14/2023 23:59 10/16/2023 3:56 PM MARKETING MANAGER ETRM Testing Location Ken DEFAULT 10/16/2023 3:01 PM MARKETING MANAGER ETRM Blood (Blood, Venous) 10/16/2023 2:33 PM MARKETING MANAGER 10/16/2023 3:01 PM MARKETING MANAGER Radha Giles LAB BLOOD BANK TE ST ORDERABLES [address] [address], [facility] ETRM [address] [address] * (ABNORMAL) Comprehensive Metabolic Panel (10/16/2023 2:33 PM MARKETING MANAGER) Pathologist [facility] Potassium, S 4.4 3.6 - 5.2 mmol/L 10/16/2023 3:25 PM MARKETING MANAGER DTL Sodium, S 142 135 - 145 mmol/L 10/16/2023 3:25 PM MARKETING MANAGER DTL Chloride, S 104 98 - 107 mmol/L 10/16/2023 3:25 PM MARKETING MANAGER DTL Bicarbonate, S 27 22 - 29 mmol/L 10/16/2023 3:25 PM MARKETING MANAGER DTL Anion Gap 11 7 - 15 10/16/2023 3:25 PM MARKETING MANAGER DTL BUN (Blood Urea Nitrogen), S 48(H) 8 - 24 mg/dL 10/16/2023 3:25 PM MARKETING MANAGER DTL Creatinine 3.96(H) 0.74 - 1.35 mg/dL 10/16/2023 3:25 PM MARKETING MANAGER DTL Estimated GFR (eGFR) <15(L) >=60 mL/min/BS A 10/16/2023 3:25 PM MARKETING MANAGER DTL Comment: Estimated GFR calculated using the 2020 CKD_EPI creatinine equation. Calcium, Total, S 8.3(L) 8.8 - 10.2 mg/dL 10/16/2023 3:25 PM MARKETING MANAGER DTL Glucose, S 132 70 - 140 mg/dL 10/16/2023 3:25 PM MARKETING MANAGER DTL Protein, Total, S 5.6(L) 6.3 - 7.9 g/dL 10/16/2023 3:25 PM MARKETING MANAGER DTL Albumin, S 3.4(L) 3.5 - 5.0 g/dL 10/16/2023 3:25 PM MARKETING MANAGER DTL Aspartate Aminotransferase (AST), S 33 8 - 48 U/L 10/16/2023 3:25 PM MARKETING MANAGER DTL Alkaline Phosphatase, S 310(H) 40 - 129 U/L 10/16/2023 3:25 PM MARKETING MANAGER DTL Alanine Aminotransferase (ALT), S 23 7 - 55 U/L 10/16/2023 3:25 PM MARKETING MANAGER DTL Bilirubin, Total, S 0.2 0.0 - 1.2 mg/dL 10/16/2023 3:25 PM MARKETING MANAGER DTL Blood (Blood, Venous) 10/16/2023 2:33 PM MARKETING MANAGER 10/16/2023 3:06 PM MARKETING MANAGER Radha Giles LAB BLOOD ADD-ON [facility] [address] [place] [address], [facility] [address] [place] [address] from Last 3 Months Advance Directives For more information, please contact: [phone] * Full Code (Latest Code Status on [...] Answer Comments Full Code: Discussed Care Teams Human Resources Executive Relationship Specialty Start Date End Date Elsewhere, Pcp PCP - General Internal Medicine 11/24/23
--- OUTSIDE RECORDS SUMMARY | 2023-12-07 10:07 | XMS_ITS | Encounter Summary ---
Author Name Unknown Organization [facility] Address [address] [place] [address] Care Team Providers Care Manager Retail Store Name Role Phone Elsewhere, Pcp Primary Care Provider Unavailabl e Encounter Details Date Type Department Care Team (Latest Contact Info) Description 10/16/2023 2:09 PM CORPORATE ASSOCIATE ATTORNEY - 10/16/2023 11:59 PM CORPORATE ASSOCIATE ATTORNEY Hospital Encounter Department of Laboratory Medicine and Pathology, [facility] in [place], [place] [address] [place] [address] Radha Andrade M.B.B.S. [address] [place] [address] Atrial Fibrillation Paroxysmal (HCC) Discharge Disposition: Home [...] often do you attend chur ch or anabaptist services? More than 4 times per year 04/11/2022 Do you belong to any clubs o r organizations such as religion groups, unions, fraternal [...] and heating? Not hard at all 05/13/2023 [facility] - Occupational [...] your living situation today? I have a [facility] place to live 05/13/2023 Education Answer [...] irritation. 09/20/2022 documented as of this encounter Plan of Treatment Not on file documented as of this encounter Procedures Procedure Name Priority Date/Time Associated Diagnosis Comments PROTHROMBIN TIME (PT), P Routine 10/16/2023 2:33 PM CORPORATE ASSOCIATE ATTORNEY Atrial Fibrillation Paroxysmal (HCC) CBC WITH DIFFERENTIAL, B Routine 10/16/2023 2:33 PM CORPORATE ASSOCIATE ATTORNEY Atrial Fibrillation Paroxysmal (HCC) TYPE AND SCREEN Routine 10/16/2023 2:33 PM CORPORATE ASSOCIATE ATTORNEY Atrial Fibrillation Paroxysmal (HCC) COMPREHENSIVE METABOLIC PANEL, S/P Routine 10/16/2023 2:33 PM CORPORATE ASSOCIATE ATTORNEY Atrial Fibrillation Paroxysmal (HCC) documented in this encounter Results * Type and Screen (with Reflex Antibody ID) (10/16/2023 2:33 PM CORPORATE ASSOCIATE ATTORNEY) ABORh O Pos Not applicable 10/16/2023 3:56 PM CORPORATE ASSOCIATE ATTORNEY ETRM Antibody Screen Negative Negative 10/16/2023 4:25 PM CORPORATE ASSOCIATE ATTORNEY ETRM Type & Screen Expiration 12/14/2023 23:59 10/16/2023 3:56 PM CORPORATE ASSOCIATE ATTORNEY ETRM Testing Location [place] DEFAULT 10/16/2023 3:01 PM CORPORATE ASSOCIATE ATTORNEY ETRM Blood (Blood, Venous) 10/16/2023 2:33 PM CORPORATE ASSOCIATE ATTORNEY 10/16/2023 3:01 PM CORPORATE ASSOCIATE ATTORNEY Radha RicoSBailey LAB BLOOD BANK TE ST ORDERABLES Performing Organization Address City/[facility]/ZIP Co de Phone Number [facility] [address] [place] [address], [facility] ETRM [facility] [address] [place] [address] * Prothrombin Time (PT) (10/16/2023 2:33 PM CORPORATE ASSOCIATE ATTORNEY) Prothrombin Time, P 11.9 9.4 - 12.5 sec 10/16/2023 3:12 PM CORPORATE ASSOCIATE ATTORNEY DTL INR 1.1 0.9 - 1.1 10/16/2023 3:12 PM CORPORATE ASSOCIATE ATTORNEY DTL Comment: ----ADDITIONAL INFORMATION---- Standard intensity warfarin therapeutic range: 2.0 to 3.0 ?? High intensity warfarin therapeutic range: 2.5 to 3.5 Blood (Blood, Venous) 10/16/2023 2:33 PM CORPORATE ASSOCIATE ATTORNEY 10/16/2023 2:56 PM CORPORATE ASSOCIATE ATTORNEY Radha Lockwood.SBailey LAB BLOOD ADD-ON Performing Organization Address City/[facility]/ZIP Co de Phone Number [facility] [address] [place] [address], [facility] DTL [facility] [address] [place] [address] * (ABNORMAL) Comprehensive Metabolic Panel (10/16/2023 2:33 PM CORPORATE ASSOCIATE ATTORNEY) Potassium, S 4.4 3.6 - 5.2 mmol/L 10/16/2023 3:25 PM CORPORATE ASSOCIATE ATTORNEY DTL Sodium, S 142 135 - 145 mmol/L 10/16/2023 3:25 PM CORPORATE ASSOCIATE ATTORNEY DTL Chloride, S 104 98 - 107 mmol/L 10/16/2023 3:25 PM CORPORATE ASSOCIATE ATTORNEY DTL Bicarbonate, S 27 22 - 29 mmol/L 10/16/2023 3:25 PM CORPORATE ASSOCIATE ATTORNEY DTL Anion Gap 11 7 - 15 10/16/2023 3:25 PM CORPORATE ASSOCIATE ATTORNEY DTL BUN (Blood Urea Nitrogen), S 48(H) 8 - 24 mg/dL 10/16/2023 3:25 PM CORPORATE ASSOCIATE ATTORNEY DTL Creatinine 3.96(H) 0.74 - 1.35 mg/dL 10/16/2023 3:25 PM CORPORATE ASSOCIATE ATTORNEY DTL Estimated GFR (eGFR) <15(L) >=60 mL/min/BS A 10/16/2023 3:25 PM CORPORATE ASSOCIATE ATTORNEY DTL Comment: Estimated GFR calculated using the 2020 CKD_EPI creatinine equation. Calcium, Total, S 8.3(L) 8.8 - 10.2 mg/dL 10/16/2023 3:25 PM CORPORATE ASSOCIATE ATTORNEY DTL Glucose, S 132 70 - 140 mg/dL 10/16/2023 3:25 PM CORPORATE ASSOCIATE ATTORNEY DTL Protein, Total, S 5.6(L) 6.3 - 7.9 g/dL 10/16/2023 3:25 PM CORPORATE ASSOCIATE ATTORNEY DTL Albumin, S 3.4(L) 3.5 - 5.0 g/dL 10/16/2023 3:25 PM CORPORATE ASSOCIATE ATTORNEY DTL Aspartate Aminotransferase (AST), S 33 8 - 48 U/L 10/16/2023 3:25 PM CORPORATE ASSOCIATE ATTORNEY DTL Alkaline Phosphatase, S 310(H) 40 - 129 U/L 10/16/2023 3:25 PM CORPORATE ASSOCIATE ATTORNEY DTL Alanine Aminotransferase (ALT), S 23 7 - 55 U/L 10/16/2023 3:25 PM CORPORATE ASSOCIATE ATTORNEY DTL Bilirubin, Total, S 0.2 0.0 - 1.2 mg/dL 10/16/2023 3:25 PM CORPORATE ASSOCIATE ATTORNEY DTL Blood (Blood, Venous) 10/16/2023 2:33 PM CORPORATE ASSOCIATE ATTORNEY 10/16/2023 3:06 PM CORPORATE ASSOCIATE ATTORNEY Radha Giles LAB BLOOD ADD-ON [facility] [address] [place] [address], [facility] DTL [facility] [address] [place] [address] * (ABNORMAL) CBC with Differential, Blood (10/16/2023 2:33 PM CORPORATE ASSOCIATE ATTORNEY) Hemoglobin 11.8(L) 13.2 - 16.6 g/dL 10/16/2023 3:03 PM CORPORATE ASSOCIATE ATTORNEY DTL Hematocrit 34.9(L) 38.3 - 48.6 % 10/16/2023 3:03 PM CORPORATE ASSOCIATE ATTORNEY DTL Erythrocytes 3.43(L) 4.35 - 5.65 x10(12)/L 10/16/2023 3:03 PM CORPORATE ASSOCIATE ATTORNEY DTL MCV 101.7(H) 78.2 - 97.9 fL 10/16/2023 3:03 PM CORPORATE ASSOCIATE ATTORNEY DTL RBC Distrib Width 12.8 11.8 - 14.5 % 10/16/2023 3:03 PM CORPORATE ASSOCIATE ATTORNEY DTL Platelet Count 126(L) 135 - 317 x10(9)/L 10/16/2023 3:03 PM CORPORATE ASSOCIATE ATTORNEY DTL Leukocytes 4.8 3.4 - 9.6 x10(9)/L 10/16/2023 3:03 PM CORPORATE ASSOCIATE ATTORNEY DTL Neutrophils 3.12 1.56 - 6.45 x10(9)/L 10/16/2023 3:03 PM CORPORATE ASSOCIATE ATTORNEY DHPM Lymphocytes 0.45(L) 0.95 - 3.07 x10(9)/L 10/16/2023 3:03 PM CORPORATE ASSOCIATE ATTORNEY DTL Monocytes 0.49 0.26 - 0.81 x10(9)/L 10/16/2023 3:03 PM CORPORATE ASSOCIATE ATTORNEY DTL Eosinophils 0.71(H) 0.03 - 0.48 x10(9)/L 10/16/2023 3:03 PM CORPORATE ASSOCIATE ATTORNEY DTL Basophils 0.05 0.01 - 0.08 x10(9)/L 10/16/2023 3:03 PM CORPORATE ASSOCIATE ATTORNEY DTL Blood (Blood, Venous) 10/16/2023 2:33 PM CORPORATE ASSOCIATE ATTORNEY 10/16/2023 2:56 PM CORPORATE ASSOCIATE ATTORNEY Radha Giles LAB BLOOD ADD-ON [facility] [address] [place] [address], [facility] DTL [facility] [address] [place] [address] [facility] [place] [address] [place] [address] documented in this encounter Visit Diagnoses Diagnosis Atrial Fibrillation Paroxysmal (HCC) documented in this encounter Care Teams Manager Retail Store Relationship Specialty Start Date End Date Elsewhere, Pcp PCP - General Internal Medicine 06/05/22 11/23/23 documented as of this encounter
--- OUTSIDE RECORDS SUMMARY | 2023-12-07 10:07 | XMS_ITS | Encounter Summary ---
Author Name Unknown Organization [facility] Address [address] [place] [address] Care Team Providers Care Lumber Tailer Name Role Phone Elsewhere, Pcp Primary Care Provider Unavailabl e Reason for Visit * Auth/Cert (Routine) Specialty Diagnoses / Procedures Referred By Contac t Referred To Contact Diagnoses Atrial Fibrillation Paroxysmal (HCC) Atrial Fibrillation Paroxysmal (HCC) [I48.0] Procedures CT PERC TXCATH CLSR LT ATR APNDG CT ECHO JASON 2D COMPLETE CLAY CLOSURE WITH IMPLANT Referral ID Status Reason Start Date Expiration Date Visits Re quested Visits Authorized [id number] 1 1 Encounter Details Date Type Department Care Team (Latest Contact Info) Description 10/17/2023 8:57 AM CORRECTIONAL SUPERVISOR LIEUTENANT - 10/17/2023 7:44 PM CORRECTIONAL SUPERVISOR LIEUTENANT Hospital Encounter Division of Cardiovascular Diseases in [place], [place] [address] [place] [address] Radha Andrade M.B.B.S. [address] [place] [address] Atrial Fibrillation Paroxysmal (HCC) Discharge Disposition: Home [...] How often do you attend chur or church services? More than 4 times per year [...] and heating? Not hard at all 05/13/2023 [facility] - Occupational Stress [...] your living situation today? I have a [facility] place to live 05/13/2023 Education Answer [...] Sign Reading Time Taken Comments Blood Pressure 110/50 10/17/2023 7:00 PM CORRECTIONAL SUPERVISOR LIEUTENANT Pulse 52 10/17/2023 7:00 PM CORRECTIONAL SUPERVISOR LIEUTENANT Temperature 36.6 ??C (97.9 ??F) 10/17/2023 10:[address] Respiratory Rate 16 10/17/2023 10:05 AM CORRECTIONAL SUPERVISOR LIEUTENANT Oxygen Saturation 98% 10/17/2023 7:00 PM CORRECTIONAL SUPERVISOR LIEUTENANT Inhaled Oxygen Concentration - - Weight 80.5 kg (177 lb 7.5 oz) 10/17/2023 10:05 AM CORRECTIONAL SUPERVISOR LIEUTENANT Height 172.5 cm (5' 7.91) 10/17/2023 10:[address] Body Mass Index 27.05 10/17/2023 10:05 AM CORRECTIONAL SUPERVISOR LIEUTENANT documented in this encounter Discharge Summaries * Viki Nolasco APRN, C.N.P., M.S.N. - 10/17/2023 5:54 PM CST [facility] DISCHARGE SUMMARY DATE OF ADMISSION: 10/17/2023 DATE OF DISCHARGE: 10/17/2023 Discharge Provider: Radha Andrade M.B.B.S. Discharge Provider Team: RST CVD Interventional/Heart Rhythm PRINCIPAL DIAGNOSIS: Atrial Fibrillation Paroxysmal (HCC) DISMISSAL DIAGNOSES: #1 Atrial Fibrillation Other Persistent (HCC) #2 Obstructive Sleep Apnea Adult #3 Achalasia #4 Dialysis Peritoneal Status (HCC) #5 Atrial Fibrillation Paroxysmal (HCC) #6 Anemia In Chronic Kidney Disease #7 Hypertension And End Stage Renal Disease (HCC) #8 Hemorrhage Gastrointestinal #9 Stenosis Aortic Valve Acquired RECOMMENDATIONS FOR FOLLOW-UP APPOINTMENTS: RECOMMENDATIONS FOR PRIMARY CARE PROVIDER: - Assess access site(s) for healing. - Eliquis 2.5 mg twice daily x 3-6 months - SBE prophylaxis recommended x 6 months BACTERIAL ENDOCARDITIS PROPHYLAXIS *The following recommendations should be observed for 6 months after your procedure. 1. Take antibiotic(s) prior to interventional procedures or surgeries. 2. Observe good oral hygiene daily, as advised by your dentist. Ensure regular professional dental care. 3. Keep cuts and skin lesions clean. 4. Infections should be treated promptly. Failure to follow these recommendations will expose you to risks of developing bacterial endocarditis, a serious heart valve infection. FOLLOW-UP APPOINTMENTS: Scheduled Appointments 11/24/2023 9:30 AM RST INTAKE VISIT POD A 01 Admitting/Central Scheduling 11/27/2023 9:50 AM LAB BLOOD ROMB M-C Laboratory Medicine 11/27/2023 10:30 AM ECHO [place] 04 05 Cardiovascular Disease 11/28/2023 1:00 PM Sarina Miller PBaileyA.-C., M.S.; CVD LAAO TODD 01 ROAL; RM 01 ROAL CVD Cardiovascular Disease For appointment details refer to your Patient Appointment Guide. HOSPITAL COURSE: Admission Weight: 80.5 kg Dismissal Weight: 80.5 kg BMI: Body mass index is 27.05 kg/m??. David Castro is an 82 year old male discharged from [facility] following planned left atrial appendage occlusion with a 27 mm Watchman device implanted by Dr. Andrade on 10/17/2023 in the setting of paroxysmal atrial fibrillation and history of GI bleeding. Other medical comorbidities include, but are not limited to, obstructive sleep apnea, achalasia, end stage renal failure on peritoneal dialysis, anemia, hypertension, and aortic stenosis. There were no procedure complications. No contrast was used during the procedure. Post procedure hehad no complaints of chest discomfort or shortness of breath. Right femoral venous access site remained clean and dry without hematoma. He was started on Eliquis 2.5 mg twice daily with plans to continue for 3-6 months. Duration to be determined after follow up CT imaging is performed in approximately 6 weeks. After therapy with Eliquis is complete the plan will be to start Plavix monotherapy lifelong. RESTRICTIONS: Refrain from lifting anything greater than 10 lb for 7 days. LIMITED PHYSICAL EXAMINATION: General: Calm, pleasant, in no acute distress. Heart: regular rate and rhythm Lungs: clear throughout, on room air, no cough Access site: Clean, dry, intact, free of hematoma. TEST RESULTS PENDING AT DISCHARGE: Pending Labs None DISCHARGE DISPOSITION: Home or Self Care [1] CONDITION ON DISCHARGE: Stable. DIET AT DISCHARGE: LOW-FAT, LOW-CHOLESTEROL, LOW-SODIUM DIET. PRIMARY PROVIDER: Patient Care Team: Kush Doran II, M.D. as External Primary Care Physician (Family Medicine) Primary Care Providers: Elsewhere, Pcp (General) No address on file Primary Care Provider Phone Number: None Primary Care Provider Fax Number: [phone] Electronically signed by: Viki Nolasco APRN, C.N.PBailey, M.S.N. 10/17/23 7:01 PM CORRECTIONAL SUPERVISOR LIEUTENANT [facility] CVD Interventional/Heart Rhythm ECTIONAL SUPERVISOR LIEUTENANT documented in this encounter Discharge Instructions * Discharge Instructions* Viki Nolasco APRN, C.N.P., M.S.N. - 10/17/2023 9:02 AM CORRECTIONAL SUPERVISOR LIEUTENANT You were discharged from the [facility] CVD Interventional/Heart Rhythm Service. Please identify this service name if you call with questions after hospitalization. Activity Restrictions: For 7 days after the procedure do not - lift, push, or pull more than 5-10 lbs - do strenuous exercise (biking, weight lifting, aerobics, golfing) - strain - participate in sexual activity - do not submerge the wound sites, you may shower Driving Restrictions: -do not drive for 24 hours after discharge from the hospital Work Restrictions: Return to work in 7 days. Seek Emergent Medical Treatment for: Chest pain, passing out, stroke symptoms, shortness of breath, temperature greater than 101.4, or excessive/prolonged bleeding events. Care of your Groin Puncture Sites: Bandages may be removed 24 hrs after the procedure. You do not need to place new bandages. The wounds heal best open to the air. If there is a small amount of oozing or bleeding new bandages can be placed in an effort to prevent damage to clothing but is not required. Note that mild bruising and color change without pain may occur during normal healing at the puncture site If you have active bleeding or swelling of the puncture site: - Lie down and apply firm pressure with two or three fingers over the puncture site for 15 minutes. - If you are alone when bleeding occurs or after holding pressure for 15 minutes, the bleeding continues, call 911 and continue to hold pressure until help arrives. - Do not try to drive yourself to the hospital. Call Your Local Provider for: - New or expanding swelling greater than a size of a golf ball at the groin puncture site/s. - Signs of infection (redness, drainage, fever) at the puncture site/s - Change in color, temperature, or sensation in the leg - Unusual feelings of weakness or faintness. Contact Information: Should you have any questions, concerns, or problems that occur Monday through Monday between 8:00 a.m. and 4:00 p.m., contact the Electrophysiology Service at . For questions occurring after business hours, on weekends, nights, or holidays call [phone] and ask for Electrophysiology Florist'S Decorator. General Follow-Up: You should follow up locally with your primary care provider in approximately 7- 10 days for post hospitalization follow-up. Take a copy of the dismissal summary from [facility] to your provider. [facility] Follow-Up: A follow-up appointment has been scheduled for you in approximately 6 weeks. Tests will include a cardiac CT and basic laboratory studies. If you have not been notified about your appointment, please contact the electrophysiology video coordinator at . Heart Failure Assessment: Weigh yourself at the same time every day on the same scale and record to bring to your next appointment. Please report any of the following signs or symptoms to your primary care provider urgently: - Weight increase of 2-3 pounds in one day or increase of 5 pounds over your baseline weight. - Increased swelling or bloating, fatigue, weakness, or shortness of breath. - Difficulty breathing, especially with activity and at night Take your medications as directed; every day, every dose, and do not skip doses. No tobacco (avoid secondhand smoke) DO NOT avoid/skip your follow-up appointments, they are important! BACTERIAL ENDOCARDITIS PROPHYLAXIS The following recommendations should be observed for 6 months after your procedure. 1. Take antibiotic(s) prior to interventional procedures or surgeries; including dental procedures that involve manipulation of gingival tissue or the periapical region of the teeth or perforation ofthe oral mucosa. 2. Observe good oral hygiene daily, as advised by your dentist. Ensure regular professional dental care. 3. Keep cuts and skin lesions clean. 4. Infections should be treated promptly. Failure to follow these recommendations will expose you to risks of developing bacterial endocarditis, a serious heart valve infection. ANTICOAGULATION/ANTI-PLATELET THERAPY Eliquis 2.5 mg twice daily for 3-6 months. ECTIONAL SUPERVISOR LIEUTENANT documented in this encounter Medications at Time [...] irritation. 09/20/2022 documented as of this encounter Progress Notes * Radha Andrade M.B.B.S. - 10/17/2023 11:31 AM CST HEART RHYTHM NOTE I visited with Mr. Castro ahead of his planned left atrial appendage occlusion procedure. He again reiterated his desire to avoid contrast at all costs due to his concern regarding exacerbating renal function even though Nephrology had stated small amounts of contrast are permitted. Given his achalasia, the procedure needs to be performed with general anaesthesia. Given this, we will plan to proceed JASON guidance to maximize the chance of success given greater degrees of imaging capability compared to ICE. He states that his achalasia has progressed. I discussed his case with our JASON imaging colleagues who stated that they are comfortable trying to proceed given that his predominant complaint is achalasia and no prior stricture/stenosis. If, however, we are unable to pass the standard JASON probe then we may need to use the pediatric probe though this will have fewer imaging capabilities. We discussed the potential complications which include, but are not limited to, those of anesthesia, vascular access (hematoma, av fistula, pseudoaneurysm), retroperitoneal bleeding, pericardial effusion/tamponade requiring pericardiocentesis, renal injury or anaphylaxis related to contrast use, need for urgent cardiac surgery, device dislodgement, device related thrombus, myocardial infarction, stroke and . He is agreeable to proceed. Written informed consent obtained. Avis Sanchez Cardiac Electrophysiology Audio Production Manager Heart Rhythm Services ECTIONAL SUPERVISOR LIEUTENANT documented in this encounter H&P Notes * Igor Monet M.B.B.S. - 10/17/2023 10:33 AM CST Images from the original note were not included. PATIENT: David Castro : 1940 DATE OF SERVICE: 10/17/2023 SUBJECTIVE REFERRAL SOURCE Avis Burch. HISTORY OF PRESENT ILLNESS Mr. Castro is a 82 y.o. male with history notable for paroxysmal atrial fibrillation, coronary artery disease, [id number] aortic stenosis, hypertension and end-stage renal disease on peritoneal dialysis who presents today for planned percutaneous left atrial appendage closure. Briefly, he has longstanding history of atrial fibrillation. He was previously anticoagulated with warfarin. In 2021 he had recurrent GI bleed secondary to achalasia with GI ulceration. He now presents for planned left atrial appendage closure. He denies any chest pain, dyspnea on exertion, syncope. Currently he is not on any anticoagulation which was discontinued previously in the setting of GI bleed. He will be undergoing JASON guided left atrial appendage closure. This will be done under general anesthesia without use of contrast as per patient preference. REVIEW OF SYSTEMS All systems reviewed and except those mentioned in the HPI, are otherwise unremarkable. Current Outpatient Medications Medication Instructions allopurinoL (ZYLOPRIM) 100 mg, oral, Every morning amoxicillin (AMOXIL) 500 mg capsule 4 capsules, oral, Once as needed calcitRIOL (ROCALTROL) 0.25 mcg capsule 1 capsule, oral, 3 times weekly, Monday, Monday, Monday cholecalciferol (VITAMIN D3) 50 mcg (2,000 Unit) tablet 1 tablet, oral docusate sodium (COLACE) 100 mg, oral, Daily famotidine (PEPCID) 20 mg tablet TAKE 1 TABLET BY MOUTH AT BEDTIME gentamicin (GARAMYCIN) 0.1 % cream 1 Application, topical, As needed metoprolol tartrate (LOPRESSOR) 12.5 mg, oral, 2 times daily multivitamin renal failure (DIALYVITE) 100-1 mg tablet 1 tablet, oral, Daily with dinner pantoprazole (PROTONIX) 40 mg, oral, 2 times daily before breakfast and dinner sucralfate (CARAFATE) 1 g, oral, Every 6 hours PRN torsemide (DEMADEX) 20 mg, oral, Daily triamcinolone (KENALOG) 0.1 % cream 1 Application, topical, As needed Social History Tobacco Use Smoking status: Never Smokeless tobacco: Never Vaping Use Vaping Use: never used Substance Use Topics Alcohol use: Never Drug use: Never Family History Problem Relation Age of Onset Dementia Mother OBJECTIVE Vitals: 10/17/23 1011 BP: 144/72 Pulse: 65 Resp: Temp: 36.6 ??C SpO2: 98% Body mass index is 27.05 kg/m??. PHYSICAL EXAMINATION General: Awake, alert, no acute distress HEENT: Moist mucous membranes Carotid: No carotid bruits bilaterally Vessels: No JVD Resp: Clear bilaterally Card: Regular rate and rhythm, No murmurs Abd: NABS, Nontender, nondistended Psych: Appropriate mood and affect Skin: No acute rashes/skin lesions ASSESSMENT / PLAN #1 Obstructive Sleep Apnea Adult #2 Achalasia #3 Dialysis Peritoneal Status (HCC) #4 Atrial Fibrillation Paroxysmal (HCC) #5 Anemia In Chronic Kidney Disease #6 Hypertension And End Stage Renal Disease (HCC) #7 Hemorrhage Gastrointestinal #8 Stenosis Aortic Valve Acquired Mr. Castro presents for planned CLAY closure in the setting of paroxysmal atrial fibrillation and previous GI bleeding. Informed consent was obtained from the patient. Risks, benefits and alternatives were discussed with the patient. He has agreed to proceed. Procedure will be performed using JASON guidance. Mr. Castro was allowed ample opportunity to ask questions and these were addressed to the best of my ability. They were agreeable to the above stated plan. Chan Vela 10/17/2023 ECTIONAL SUPERVISOR LIEUTENANT documented in this encounter Procedure Notes * Radha Andrade M.B.B.S. - 10/17/2023 2:34 PM CST POSTPROCEDURE NOTE PROCEDURE TYPES 1. CLAY CLOSURE WITH IMPLANT 2. TRANSESOPHAGEAL (JASON) ECHOCARDIOGRAM BRIEF HISTORY: Mr. Castro is an 82-year-old gentleman with paroxysmal atrial fibrillation, achalasia, end-stage renal disease on peritoneal dialysis and history of GI bleeding. Due to relative contraindication to long-term anticoagulation, he was referred for left atrial appendage occlusion. After a shared decision making consultation, the patient elected to proceed with a left atrial appendage occlusion. The patient was adamant that he does not wish to receive any contrast. Therefore, the procedure was performed under general anesthesia and JASON guidance given his inability to lay flat in view of his achalasia and desire to avoid contrast used. PROCEDURAL DETAILS: The patient proceeded to the laboratory in the fasting state. General anesthesia was administered. IV antibiotics were administered. Lidocaine was administered to the right femoral region. Vascular access was obtained in the right femoral vein using ultrasound guidance with the modified Seldinger technique. A 16 Cypriot and 8 Cypriot sheath were placed in situ. Heparin bolus was administered maintaining an ACT of >300 seconds. Baseline JASON evaluation demonstrated a small anterior pericardial effusion that remained stable throughout the procedure. Left atrial appendage anatomy was amenable toclosure. There was no appendage thrombus. We advanced a [employer] connect system into the SVC and pulled it down to the desired location fortransseptal puncture over the fossa ovalis. This was performed without any acute complication. Access was via fluoroscopic and JASON guidance. Left atrial mean pressure was 17 mmHg. The double curve Watchman Access Sheath (WAS) was advanced into the left atrium. The pigtail catheter was delivered through this into the left atrial appendage. After measurements, we elected to proceed with a 27 mm device. First deployment was slightly proximal and therefore we performed a partialrecapture. With more distal placement, we had excellent seal with no evidence of leak. There was exc ellent compression approximating 15-20%. Tug test was satisfactory. The Position, [place], Size, Seal (PASS) criteria were satisfied. The device was released and remained stable. Final JASON evaluation showed no change in the pericardial effusion and stable, satisfactory device placement. Protamine was given to reverse heparin effect. A figure of 8 suture was deployed in the right femoral vein and sheaths were removed with adequate hemostasis. FINAL DIAGNOSIS: 1. Atrial fibrillation with elevated CHADS VASc score A. Status post acutely successful 27 mm Watchman device placement SUMMARY OF RECOMMENDATIONS: 1. Apixaban 2.5 mg b.i.d. for 3-6 months. Final plan to be determined at follow- up in 6 weeks 2. 3 hours bedrest 3. Six weeks follow-up 4. Discharge once dismissal criteria met. ECTIONAL SUPERVISOR LIEUTENANT documented in this encounter Miscellaneous Notes * Hospital Course - Viki Nolasco APRN, C.N.P., M.S.N. - 10/17/2023 5:51 PM CST David Castro is an 82 year old male discharged from [facility] following planned left atrial appendage occlusion with a 27 mm Watchman device implanted by Dr. Andrade on 10/17/2023 in the setting of paroxysmal atrial fibrillation and history of GI bleeding. Other medical comorbidities include, but are not limited to, obstructive sleep apnea, achalasia, end stage renal failure on peritoneal dialysis, anemia, hypertension, and aortic stenosis. There were no procedure complications. No contrast was used during the procedure. Post procedure hehad no complaints of chest discomfort or shortness of breath. Right femoral venous access site remained clean and dry without hematoma. He was started on Eliquis 2.5 mg twice daily with plans to continue for 3-6 months. Duration to be determined after follow up CT imaging is performed in approximately 6 weeks. After therapy with Eliquis is complete the plan will be to start Plavix monotherapy lifelong. ECTIONAL SUPERVISOR LIEUTENANT documented in this encounter Plan of Treatment Not on file documented as of this encounter Procedures Procedure Name Priority Date/Time Associated Diagnosis Comments HEART RHYTHM PROCEDURE Routine 10/17/2023 2:19 PM CORRECTIONAL SUPERVISOR LIEUTENANT Atrial Fibrillation Paroxysmal (HCC) HEART RHYTHM PROCEDURE Routine 10/17/2023 2:19 PM CORRECTIONAL SUPERVISOR LIEUTENANT Atrial Fibrillation Paroxysmal (HCC) ADULT OXYGEN THERAPY Routine 10/17/2023 2:00 PM CORRECTIONAL SUPERVISOR LIEUTENANT ADULT OXYGEN THERAPY Routine 10/17/2023 2:00 PM CORRECTIONAL SUPERVISOR LIEUTENANT ACT, POCT, B Routine 10/17/2023 1:38 PM CORRECTIONAL SUPERVISOR LIEUTENANT ACT, POCT, B Routine 10/17/2023 1:20 PM CORRECTIONAL SUPERVISOR LIEUTENANT POTASSIUM, S/P Routine 10/17/2023 10:25 AM CORRECTIONAL SUPERVISOR LIEUTENANT documented in this encounter Results * CLAY CLOSURE W/ IMPLANT, TRANSESPOHAGEAL (JASON) ECHOCARDIOGRAM (10/17/2023 2:19 PM CORRECTIONAL SUPERVISOR LIEUTENANT) Anatomical Region Laterality Modality X-Ray Angiograph y 10/17/2023 1:01 PM CORRECTIONAL SUPERVISOR LIEUTENANT Narrative 10/22/2023 9:11 AM CORRECTIONAL SUPERVISOR LIEUTENANT For the complete report, see the Order-Level [...] with the modified Seldinger technique. A 16 Cypriot and 8 Cypriot sheath were placed in situ. ?? Heparin bolus was administered maintaining an ACT of >300 seconds. ??Baseline JASON evaluation demonstrated a small anterior pericardial effusion that remained stable throughout the procedure. ??Left atrial appendage anatomy was amenable to closure. ??There was no appendage thrombus. ?? We advanced a [employer] connect system into the SVC and pulled [...] 15-20%. ??Tug test was satisfactory. The Position, [place], Size, Seal (PASS) criteria were satisfied. The [...] guidance with themodified Seldinger technique. A 16 Cypriot and 8 Cypriot sheath were placedin situ. Heparin bolus was [...] evidence of leak. There was excellent compression [id number]%. Tug test was satisfactory. The Position, [place], Size, Seal(PASS) criteria were satisfied. The device [...] (Activated Clotting Time), POCT (10/17/2023 1:38 PM CORRECTIONAL SUPERVISOR LIEUTENANT) Activated Clotting Time, POCT 310(H) 84 - 139 sec 10/17/2023 1:49 PM CORRECTIONAL SUPERVISOR LIEUTENANT PCSM Blood 10/17/2023 1:38 PM CORRECTIONAL SUPERVISOR LIEUTENANT 10/17/2023 1:50 PM CORRECTIONAL SUPERVISOR LIEUTENANT Unknown Provider LAB POCT ORDERABLES - DEVICE Performing Organization Address [facility] Co de Phone Number [facility] [address] [place] [address], [facility] [address] [place] [address] * (ABNORMAL) ACT (Activated Clotting Time), POCT (10/17/2023 1:20 PM CORRECTIONAL SUPERVISOR LIEUTENANT) Activated Clotting Time, POCT 273(H) 84 - 139 sec 10/17/2023 1:31 PM CORRECTIONAL SUPERVISOR LIEUTENANT PCSM Blood 10/17/2023 1:20 PM CORRECTIONAL SUPERVISOR LIEUTENANT 10/17/2023 1:31 PM CORRECTIONAL SUPERVISOR LIEUTENANT Unknown Provider LAB POCT ORDERABLES - DEVICE Performing Organization Address [facility] de Phone Number [facility] [address] [place] [address], [facility] POC [address] [place] [phone] * Potassium (10/17/2023 10:25 AM CORRECTIONAL SUPERVISOR LIEUTENANT) [facility] Potassium, S 4.6 3.6 - 5.2 mmol/L 10/17/2023 11:29 AM CORRECTIONAL SUPERVISOR LIEUTENANT DTL Blood (Blood, Venous) 10/17/2023 10:25 AM CORRECTIONAL SUPERVISOR LIEUTENANT 10/17/2023 11:18 AM CORRECTIONAL SUPERVISOR LIEUTENANT Radha Giles LAB BLOOD ADD-ON Performing Organization Address City/[facility]/ZIP Co de Phone Number [facility] [address] [place] [address], [facility] [address] [place] [address] documented in this encounter Visit Diagnoses Diagnosis Atrial Fibrillation Paroxysmal (HCC)- Primary Obstructive Sleep Apnea Adult Achalasia Dialysis Peritoneal Status (HCC) Anemia In Chronic Kidney Disease Hypertension And End Stage Renal Disease (HCC) Hemorrhage Gastrointestinal Stenosis Aortic Valve Acquired Atrial Fibrillation Other Persistent (HCC) Atrial Fibrillation Paroxysmal (HCC) documented in this encounter Admitting Diagnoses Diagnosis Atrial Fibrillation Paroxysmal (HCC) Atrial Fibrillation Other Persistent (HCC) documented in this encounter Administered Medications Inactive Administered Medications - up to 3 most recent administrations Medication Order MAR Action Action Date Dose Rate Site acetaminophen tablet 1,000 mg (TYLENOL) 1,000 mg, oral, Every 6 hours PRN, mild pain or score 1-3 of 10, Starting on Mon10/17/23 at 1430, PACU & Post-Op apixaban tablet 2.5 mg (ELIQUIS) 2.5 mg, oral, 2 times daily, First dose on Mon10/17/23 at 1515, Drug Monitoring Program: Pharmacist to adjust medication dosing based on indication and drug clearance factors. Given 10/17/2023 4:07 PM CORRECTIONAL SUPERVISOR LIEUTENANT 2.5 mg fentaNYL injection 25 mcg (SUBLIMAZE) 25 mcg, intravenous, Every 2 hour PRN, moderate pain or score 4-6 of 10, Starting on Mon10/17/23 at 1430, PACU & Post-Op, May repeat x1 dosing interval, if patient unable to take oral analgesics or oral analgesics are ineffective fentaNYL injection 50 mcg (SUBLIMAZE) 50 mcg, intravenous, Every 2 hour PRN, severe pain or score 7-10 of 10, Starting on Mon10/17/23 at 1430, PACU & Post-Op, May repeat x1 dosing interval, if patient unable to take oral analgesics or oral analgesics are ineffective lidocaine (PF) 10 mg/mL (1 %) injection 2-5 mL (XYLOCAINE) 2-5 mL, subcutaneous, As needed, to start central line, Starting on Mon10/17/23 at 1213, Intraprocedure (CV), 5 mL per access site, if not numb then 2 mL additional until patient numb per access site (maximum of 3 sites, two femoral and one internal jugular). naloxone injection 0.2 mg (NARCAN) 0.2 mg, intravenous, As needed, respiratory depression, Starting on Mon10/17/23 at 1430, PACU & Post-Op, For RASS Score -4 or less, respiratory rate of less than 8 breaths/min. Notify provider/service and rapid response team (if available at institution). sodium chloride 0.9 % injection 10 mL 10 mL, intravenous, As needed, line care, Peripheral Intravenous Catheter and Rapid Infusion Catheter, Starting on Mon10/17/23 at 0957, Preprocedure (CV), Prior to blood sampling, post blood transfusion or post blood sampling. sodium chloride 0.9 % injection 3 mL 3 mL, intravenous, As needed, line care, Peripheral Intravenous Catheter and Rapid Infusion Catheter, Starting on Mon10/17/23 at 0957, Preprocedure (CV), Prior to and following infusion and between multiple consecutive infusions. sodium chloride 0.9 % injection 3 mL 3 mL, intravenous, Every 12 hours scheduled, First dose on Mon10/17/23 at 2100, Preprocedure (CV), Peripheral Intravenous Catheter and Rapid Infusion Catheter: When no infusion to maintain patency. documented in this encounter Active and Recently Administered Medications Times are shown in CORRECTIONAL SUPERVISOR LIEUTENANT. Scheduled Medication Order 10/15/2023 10/16/2023 10/17/2023 apixaban tablet 2.5 mg (ELIQUIS) 2.5 mg, oral, 2 times daily, First dose on Mon10/17/23 at 1515, Drug Monitoring Program: Pharmacist to adjust medication dosing based on indication and drug clearance factors. 1607 (Given - Provid er: Stella Bright R.N.) sodium chloride 0.9 % injection 3 mL 3 mL, intravenous, Every 12 hours scheduled, First dose on Mon10/17/23 at 2100, Preprocedure (CV), Peripheral Intravenous Catheter and Rapid Infusion Catheter: When no infusion to maintain patency. Continuous Medication Order 10/15/2023 10/16/2023 10/17/2023 Lactated Ringer's 20 mL/hr, intravenous, Continuous, Starting on Mon10/17/23 at 1430, PACU (only) 1430 (Due) PRN Medication Order 10/15/2023 10/16/2023 10/17/2023 acetaminophen tablet 1,000 mg (TYLENOL) 1,000 mg, oral, Every 6 hours PRN, mild pain or score 1-3 of 10, Starting on Mon10/17/23 at 1430, PACU & Post-Op fentaNYL injection 25 mcg (SUBLIMAZE) 25 mcg, intravenous, Every 2 min PRN, moderate pain or score 4-6 of 10, severe pain or score 7-10 of 10, Starting on Mon10/17/23 at 1400, PACU (only), Up to maximum total dose of 200 mcg fentaNYL injection 25 mcg (SUBLIMAZE)(Linked Group 1) 25 mcg, intravenous, Every 2 hour PRN, moderate pain or score 4-6 of 10, Starting on Mon10/17/23 at 1430, PACU & Post-Op, May repeat x1 dosing interval, if patient unable to take oral analgesics or oral analgesics are ineffective fentaNYL injection 50 mcg (SUBLIMAZE)(Linked Group 1) 50 mcg, intravenous, Every 2 hour PRN, severe pain or score 7-10 of 10, Starting on Mon10/17/23 at 1430, PACU & Post-Op, May repeat x1 dosing interval, if patient unable to take oral analgesics or oral analgesics are ineffective lidocaine (PF) 10 mg/mL (1 %) injection 2-5 mL (XYLOCAINE) 2-5 mL, subcutaneous, As needed, to start central line, Starting on Mon10/17/23 at 1213, Intraprocedure (CV), 5 mL per access site, if not numb then 2 mL additional until patient numb per access site (maximum of 3 sites, two femoral and one internal jugular). lidocaine 10 mg/mL (1 %) injection (XYLOCAINE) (CANCELED) Code/trauma/sedation medication, Starting on Mon10/17/23 at 1301, Intraprocedure (CV) 1300 (Given - Provid er: Daniel West R.N.)1354 (Given - Provider: Chan Burch) naloxone injection 0.2 mg (NARCAN) 0.2 mg, intravenous, As needed, respiratory depression, Starting on Mon10/17/23 at 1430, PACU & Post-Op, For RASS Score -4 or less, respiratory rate of less than 8 breaths/min. Notify provider/service and rapid response team (if available at institution). sodium chloride 0.9 % injection 10 mL 10 mL, intravenous, As needed, line care, Peripheral Intravenous Catheter and Rapid Infusion Catheter, Starting on Mon10/17/23 at 0957, Preprocedure (CV), Prior to blood sampling, post blood transfusion or post blood sampling. sodium chloride 0.9 % injection 3 mL 3 mL, intravenous, As needed, line care, Peripheral Intravenous Catheter and Rapid Infusion Catheter, Starting on Mon10/17/23 at 0957, Preprocedure (CV), Prior to and following infusion and between multiple consecutive infusions. Linked Groups Order Group 1: fentaNYL injection 25 mcg (SUBLIMAZE)Jump to med 25 mcg, intravenous, Every 2 hour PRN, moderate pain or score 4-6 of 10, Starting on Mon10/17/23 at 1430, PACU & Post-Op, May repeat x1 dosing interval, if patient unable to take oral analgesics or oral analgesics are ineffective Or fentaNYL injection 50 mcg (SUBLIMAZE)Jump to med 50 mcg, intravenous, Every 2 hour PRN, severe pain or score 7-10 of 10, Starting on Mon10/17/23 at 1430, PACU & Post-Op, May repeat x1 dosing interval, if patient unable to take oral analgesics or oral analgesics are ineffective documented in this encounter Care Teams Lumber Tailer Relationship Specialty Start Date End Date Elsewhere, Pcp PCP - General Internal Medicine 06/05/22 11/23/23 documented as of this encounter
--- OUTSIDE RECORDS SUMMARY | 2023-12-07 10:07 | XMS_ITS | Encounter Summary ---
Author Name Unknown Organization [facility] Address [address] [place] [address] Care Team Providers Care Instructor Weaving Name Role Phone Elsewhere, Pcp Primary Care Provider Unavailabl e Reason for Visit * Auth/Cert (Routine) Specialty Diagnoses / Procedures Referred By Contac t Referred To Contact Diagnoses Atrial Fibrillation Paroxysmal (HCC) Atrial Fibrillation Paroxysmal (HCC) [I48.0] Procedures FL PERC TXCATH CLSR LT ATR APNDG FL ECHO JASON 2D COMPLETE CLAY CLOSURE WITH IMPLANT Referral ID Status Reason Start Date Expiration Date Visits Re quested Visits Authorized [id number] 1 1 Encounter Details Date Type Department Care Team (Late st Contact Info) Description 10/17/2023 12:06 PM NETWORK DESIGN ARCHITECT Anesthesia Event Division of Cardiovascular Diseases in [place], [place] [address] [place] [phone] Manda Irby APRN, CRNA, D.N.P. [address] [place] [phone] Leroy Jay M.D. [address] [place] [phone] Anesthesia Record Procedure Summary Procedure Name Responsible Anesthesiologist Anesthesia Start Time Anesthesia Stop Time CLAY CLOSURE WITH IMPLANT Manda Irby APRN, CRNA, D.N.P. 10/17/23 1206 10/17/23 1426 Events Date Time Event Comment 10/17/2023 1206 An Start Machine/Equipme nt Checked Infection Precautions Followed Procedure/Site Verified NPO Status Verified Supine Standard ASA Monitors Applied 1215 An Induction 1219 An Intubation 1219 Turnover to Proceduralist 1251 Quick Note JASON probe inser herminia 1301 Proc Start 1335 Lab Drawn 1352 Quick Note Device deployed 1354 Quick Note Local injection by surgeon/proceduralist 1356 Quick Note Heparin reverse d; pulling catheters; holding pressure 1358 Proc Fin 1400 Quick Note JASON Probe remov ed 1407 Turnover to ANE Staff 1415 Airway Removal Criteria Met 1415 Extubation/Airway Removed 1417 an stop data 1426 An End I completed my handoff to the receiving staff during which we 1. Identified the patient 2. Identified the responsible provider 3. Reviewed the pertinent medical history 4. Discussed the surgical course 5. Reviewed intra-op anesthesia management and issues during anesthesia 6. Set expectations for post-procedure period 7. Allowed opportunity for questions and acknowledgement of understanding. Meds Name Total fentanyl injection 50 mcg/mL 100 mcg rocuronium 10 mg/mL injection 50 mg succinylcholine 20 mg/mL injection 160 m g phenylephrine 100 mcg/mL injection 300 m cg ondansetron 4 mg/2 mL injection 4 mg sugammadex 100 mg/mL injection 90 mg propofol 10 mg/mL injection 150 mg dexAMETHasone (DECADRON) injection 4 mg/ mL 4 mg haloperidol 5 mg/mL injection 1 mg ceFAZolin 2 g citric acid-sodium citrate solution solu tion 30 mL heparin 1,000 units/mL injection 11,000 Units protamine 10 mg/mL injection 40 mg acetaminophen 1,000 mg/100 mL injection 1,000 mg Lactated Ringers Free Drip 600 mL * Agents No agents on file. * Blood No blood administrations on file. Lines, Drains, and Airways Type Details Placement Removal Peritoneal Dialysis Catheter Other (Comment); Right lower abdomen 12/02/21 0837 by Peripheral IV Placement Date: 10/17/23; Placement Time: 1028; Catheter Size: 20 G; Orientation: Left, Lower, Posterior, Proximal; Location: Arm; Insertion Attempts: 1; Removal Date: 10/17/23; Removal Time: 1914; Removal Reason: Patient discharged 10/17/23 1028 by Gisella Pacheco, M.S.N., R.N., CCRN 10/17/23 191 by Stella Bright RNicholas ETT Placement Date: 10/17/23; Placement Time: 1219 (created via procedure documentation); Mask Ventilation: Not attempted; Technique: Video laryngoscopy; Type: Standard ETT; Single Lumen Tube Size: 7.5 mm; Cuffed: Yes; Location: Oral; Grade View: Grade 1; Insertion Attempts: 1; Placement Verification: Bilateral breath sounds, Positive ETCO2, Symmetrical chest wall movement; Airway Comment: Airway clear, no regurg.; Removal Date: 10/17/23; Removal Time: 1415 10/17/23 1219 by Manda Irby APRN, ZACH, D.N.P. 10/17/23 1415 by Manda Irby APRN, ZACH, D.N.P. Percutaneous Access Site 10/17/23; 1301; Temporary (non-tunneled, non-implanted); Venous; Right Femoral; 10 Fr., 8 Fr.; Heparinized Saline (see MAR); Ultrasound; Dry, Intact, No bleeding, No hematoma; 10/17/23; 1408 10/17/23 1301 by Daniel West RBaileyNBailey 10/17/23 1408 by Daniel West R.N. documented in this encounter Social History Tobacco [...] often do you attend chur ch or latter-day services? More than 4 times per year 04/11/2022 Do you belong to any clubs o r organizations such as judaism groups, unions, fraternal or [...] and heating? Not hard at all [facility] - Occupational Stress Questionnaire Answer Date [...] your living situation today? I have a [facility] place to live 05/13/2023 Education Answer Date [...] documented as of this encounter OR Notes * Anesthesia Postprocedure Evaluation - Manda Irby APRN, CRNA, D.N.P. - 10/17/2023 2:49 PM CST Patient: David Castro Procedure Summary Date: 10/17/23 Room / Location: [place] [address] / [facility] Anesthesia Start: 1206 Anesthesia Stop: 1426 Procedures: CLAY CLOSURE WITH IMPLANT Transesophageal (JASON) Echocardiogram Diagnosis: Atrial Fibrillation Paroxysmal (HCC) (Atrial Fibrillation Paroxysmal (HCC) [I48.0]) Surgeons: Radha Andrade M.B.B.S. Responsible Provider: Manda Irby APRN, CRNA, D.N.P. Anesthesia Type: general ASA Status: 3 Anesthesia Type: general Last vitals Vitals Value Taken Time BP 96/51 10/17/23 1445 Temp Pulse 65 10/17/23 1448 Resp SpO2 96 % 10/17/23 1448 Vitals shown include unfiled device data. Please reference Vitals flowsheet for most recent vital signs. Anesthesia Post Evaluation Patient Disposition: dismissal Cardiovascular status: hemodynamics (HR & BP) acceptable Respiratory status: patent airway with spontaneous effort Temperature: normothermic Oxygen requirements: room air Level of consciousness: awake Pain score: pain adequately controlled and/or at baseline Post Op nausea/vomiting: none Hydration status: euvolemic ORK DESIGN ARCHITECT * Anesthesia Procedure Notes - Manda Irby APRN, CRNA, D.N.P. - 10/17/2023 12:34 PM CSTAssociated Order(s): Airway Airway Date/Time: 10/17/2023 12:19 PM Performed by: Manda Irby APRN, CRNA, D.N.P. Authorized by: Manda Irby APRN, CRNA, D.N.P. Patient location during procedure: OR / Procedure Area PROCEDURE DETAILS: Mask difficulty assessment: not attempted Final airway type: video laryngoscope Laryngeal Manipulation: no Final best view of glottic structures - Cormack/Lehane Score: grade 1 ETT location: oral VL device: glide scope [place] scope blade size: 4 Tube size: 7.5 ETT distance at teeth/gum: 22 Oral tube type: standard ETT Cuffed: yes Leak Test Performed: no Number of attempt to successful placement: 1 Airway confirmation: bilateral breath sounds, positive ETCO2 and bilateral chest rise Other previous techniques attempted: none Additional Comments Airway clear, no regurg. PRE PROCEDURE DETAILS: Pre evaluation for airway management: procedure Urgency: elective Preop assessment of probable difficulty: no difficulty anticipated Preoxygenation: bag valve mask SEDATION / ANESTHESIA Anesthesia method: anesthesia POST PROCEDURE DETAILS: Procedure outcome: successful Notable Events: no complications ORK DESIGN ARCHITECT * Anesthesia Preprocedure Evaluation - Leroy Jay M.D. - 10/17/2023 11:23 AM CST Preprocedure Anesthesia & H&P Assessment Procedure Summary Date/Time: 10/17/23 1115 Procedures: CLAY CLOSURE WITH IMPLANT - No contrast to be used in case Transesophageal (JASON) Echocardiogram Diagnosis: Atrial Fibrillation Paroxysmal (HCC) [I48.0] Pre-op diagnosis: Atrial Fibrillation Paroxysmal (HCC) [I48.0] Location: [facility] Surgeons: Radha Andrade M.B.B.S. Pertinent components of the patient's history including current problem list, medical history, surgical history, family history, social history, medications and allergies were reviewed. Present illness and pre-op diagnosis were confirmed. The planned surgery / procedure was verified with the patient / legal guardian. The patient's general health condition remains unchanged RELEVANT COMORBID CONDITIONS CV (+) Atrial Fibrillation Paroxysmal (HCC) (+) Bundle Branch Block Left (+) Chronic Systolic (Congestive) Heart Failure (HCC) (+) Hypertension And End Stage Renal Disease (HCC) RESP (+) Obstructive Sleep Apnea Adult RENAL/REPRO (+) Hypertension And End Stage Renal Disease (HCC) HEME (+) Anemia In Chronic Kidney Disease Circulatory (+) Stenosis Aortic Valve Acquired Digestive (+) Achalasia (+) Hemorrhage Gastrointestinal OBJECTIVE PHYSICAL EXAMINATION Airway (HEENT) Mallampati: II TM Distance: >3 FB Neck ROM: Full Mouth Opening: >3 cm Cardiovascular Rhythm: Irregular Rate: Normal Pulmonary Pulmonary Assessment: Clear General / Constitutional General State of Health:: calm Neurological Neurologic Assessment: alert and alert and oriented x 3 Dental Dental Assessment: dentition intact ASSESSMENT / PLAN ANESTHESIA PLAN ASA: 3 Anesthesia Plan: general Pt with worsening achalasia. History of prior esophageal intervention but none of recent. Must sit/sleep upright due to gastric reflux issues. Discussed with patient and procedural team. Will need GAwith RSI. Echo team will cautiously attempt JASON placement. Patient seen and allergies reviewed, anesthesia plan and risks discussed directly with patient /legal guardian or through an drafter civil engineering. Risks/Benefits/Alternatives of Blood transfusion discussed with patient / legal guardian, includingan opportunity to ask questions and/or decline some or all transfusion therapies. The patient / legal guardian consented to the use of all blood products, as deemed medically necessary Approval to Proceed: approved for anesthesia ORK DESIGN ARCHITECT documented in this encounter Plan of Treatment Not on file documented as of this encounter Procedures Procedure Name Priority Date/Time Associated Diagnosis Comments LDA ANE ENDOTRACHEAL AIRWAY Routine 10/17/2023 12:19 PM NETWORK DESIGN ARCHITECT documented in this encounter Results * LDA ANE ENDOTRACHEAL AIRWAY (10/17/2023 12:19 PM NETWORK DESIGN ARCHITECT) Narrative Manda Irby APRN, CRNA, D.N.P. - 10/17/2023 12:19 PM NETWORK DESIGN ARCHITECT Manda Irby APRN, CRNA, D.N.P. ? 10/17/2023 [...] ETT location: oral VL device: glide scope [place] scope blade size: 4 Tube size: 7.5 [...] Events: no complications Manda Irby APRN, CRNA, D.N.PBailey ANESTH ESIA ORDERABLES documented in this encounter Visit Diagnoses Not on filedocumented in this encounter Administered Medications Inactive Administered Medications - up to 3 most recent administrations Medication Order MAR Action Action Date Dose Rate Site acetaminophen injection intravenous, Administer over 15 Minutes, As needed, Starting on Mon10/17/23 at 1354, Anesthesia Intra-op Given 10/17/2023 1:54 PM NETWORK DESIGN ARCHITECT 1,000 mg ceFAZolin injection (ANCEF) intravenous, As needed, Starting on Mon10/17/23 at 1243, Anesthesia Intra-op Given 10/17/2023 12:43 PM NETWORK DESIGN ARCHITECT 2 g dexAMETHasone injection (DECADRON) intravenous, As needed, Starting on Mon10/17/23 at 1230, Anesthesia Intra-op Given 10/17/2023 12:30 PM NETWORK DESIGN ARCHITECT 4 mg fentaNYL injection (SUBLIMAZE) intravenous, As needed, Starting on Mon10/17/23 at 1215, Anesthesia Intra-op Given 10/17/2023 12:52 PM NETWORK DESIGN ARCHITECT 50 mcg Given 10/17/2023 12:15 PM NETWORK DESIGN ARCHITECT 50 mcg haloperidol lactate injection (HALDOL) intravenous, As needed, Starting on Mon10/17/23 at 1241, Anesthesia Intra-op Given 10/17/2023 12:41 PM NETWORK DESIGN ARCHITECT 1 mg heparin (porcine) 1,000 unit/mL injection intravenous, As needed, Starting on Mon10/17/23 at 1311, Anesthesia Intra-op Given 10/17/2023 1:26 PM NETWORK DESIGN ARCHITECT 2,000 U nits Given 10/17/2023 1:11 PM NETWORK DESIGN ARCHITECT 9,000 Units Lactated Ringer's intravenous, Continuous Infusion: Per Instructions PRN, Starting on Mon10/17/23 at 1212, Anesthesia Intra-op New Bag 10/17/2023 12:12 PM NETWORK DESIGN ARCHITECT ondansetron (PF) injection (ZOFRAN) intravenous, As needed, Starting on Mon10/17/23 at 1357, Anesthesia Intra-op Given 10/17/2023 1:57 PM NETWORK DESIGN ARCHITECT 4 mg phenylephrine injection intravenous, As needed, Starting on Mon10/17/23 at 1217, Anesthesia Intra-op Given 10/17/2023 12:43 PM NETWORK DESIGN ARCHITECT 150 mc g Given 10/17/2023 12:40 PM NETWORK DESIGN ARCHITECT 50 mcg Given 10/17/2023 12:17 PM NETWORK DESIGN ARCHITECT 100 mcg propofoL injection (DIPRIVAN) intravenous, As needed, Starting on Mon10/17/23 at 1215, Anesthesia Intra-op Given 10/17/2023 12:15 PM NETWORK DESIGN ARCHITECT 150 mg protamine injection intravenous, As needed, Starting on Mon10/17/23 at 1353, Anesthesia Intra-op Given 10/17/2023 1:56 PM NETWORK DESIGN ARCHITECT 30 mg Given 10/17/2023 1:53 PM NETWORK DESIGN ARCHITECT 10 mg rocuronium injection (ZEMURON) intravenous, As needed, Starting on Mon10/17/23 at 1237, Anesthesia Intra-op Given 10/17/2023 1:40 PM NETWORK DESIGN ARCHITECT 10 mg Given 10/17/2023 12:48 PM NETWORK DESIGN ARCHITECT 10 mg Given 10/17/2023 12:47 PM NETWORK DESIGN ARCHITECT 10 mg sodium citrate-citric acid solution (BICITRA) oral, As needed, Starting on Mon10/17/23 at 1130, Anesthesia Intra-op Given 10/17/2023 11:30 AM NETWORK DESIGN ARCHITECT 30 mL succinylcholine (PF) injection (ANECTINE) intravenous, As needed, Starting on Mon10/17/23 at 1215, Anesthesia Intra-op Given 10/17/2023 12:15 PM NETWORK DESIGN ARCHITECT 160 mg sugammadex injection (BRIDION) intravenous, As needed, Starting on Mon10/17/23 at 1404, Anesthesia Intra-op Given 10/17/2023 2:04 PM NETWORK DESIGN ARCHITECT 90 mg documented in this encounter Care Teams Instructor Weaving Relationship Specialty Start Date End Date Elsewhere, Pcp PCP - General Internal Medicine 06/05/22 11/23/23 documented as of this encounter
--- OUTSIDE RECORDS SUMMARY | 2023-12-07 10:07 | XMS_ITS | Encounter Summary ---
Author Name Unknown Organization [facility] Address [address] [facility] [address] [place] [address] Care Team Providers Care Bookmobile Librarian Name Role Phone Harish Silver MD Primary Care Provider Encounter Details Date Type Department Care Team Description 12/04/2023 Orders Only [facility] [place] [address] [place] [address] Sebastian Charles MD [address] [place] [address] Social History Tobacco Use Types Packs/Day Years Used Date Smoking Tobacco: Never Alcohol Use Standard Drinks/Week Comments No 0 (1 standard drink = 0.6 oz pur e alcohol) Sex and Gender Information Value Date Recorded Sex Assigned at Not on file Gender Identity Not on file Sexual Orientation Not on file documented as of this encounter Plan of Treatment Not on file documented as of this encounter Procedures Procedure Name Priority Date/Time Associated Diagnosis Comments HEMATOLOGY Routine 12/04/2023 CHEMISTRY Routine 12/04/2023 documented in this encounter Results * (ABNORMAL) [facility] (12/04/2023) BUN 44(H) 6 - 19 mg/dL [facility] Creatinine 3.84(H) 0.60 - 1.30 mg/dL [facility] BUN/Creatinine Ratio 11.5 10.0 - 20.0 [facility] Sodium 144 136 - 145 mEq/L [facility] Potassium 4.3 3.5 - 5.1 mEq/L [facility] Chloride 109(H) 96 - 108 mEq/L [facility] Bicarbonate (CO2) 25 20 - 31 mEq/L [facility] Calcium 8.6(L) 8.7 - 10.4 mg/dL [facility] Comment: Please note change in reference range. Corrected Calcium 9.1 8.7 - 10.4 mg/dL [facility] Comment: Corrected Calcium is not equivalent to measured Ionized Calcium. Phosphorus 4.0 2.6 - 4.5 mg/dL [facility] Calcium Phosphorus Product 34 0 - 54 [facility] Calcium Phosporus Product, Cor 36 0 - 54 [facility] Albumin 3.4(L) 3.5 - 5.2 g/dL [facility] Glucose 112(H) 70 - 100 mg/dL [facility] Iron 48 45 - 160 mcg/dL [facility] UIBC 261 155 - 355 mcg/dL [facility] TIBC 309 185 - 515 mcg/dL [facility] Iron Saturation (TSat) 16(L) 20 - 55 % [facility] 12/04/2023 12/05/2023 12: 45 PM CDT Narrative [facility] - 12/05/2023 Unless otherwise specified, test(s) performed at: [facility], [address] [place] [address], [place] [address] [employer]CRAP MET[employer] BURNER: Dariel Doyle M.D., Ph.D For any questions, please call customer service at FREQUENCY:MONTHLY Resulting Agency Comment Specimen source: Serum Sebastian Charles MD LAB BLOOD ORDERABLES [facility] See order comments or contact performing lab Unknown, [place] * (ABNORMAL) HEMATOLOGY (12/04/2023) Neutrophils 81.0(H) 40.0 - 75.0 % [facility] Lymphocytes Relative 6.0(L) 19.0 - 48.0 % [facility] Monocytes 4.9 3.0 - 10.0 % [facility] Eosinophils Relative 6.5 0.0 - 7.0 % [facility] Basophils Relative 0.6 0.0 - 1.5 % [facility] JUAN ANTONIO 1.0 0.0 - 4.0 % [facility] WBC 4.85 4.80 - 10.80 1000/mcL [facility] RBC 3.59(L) 4.70 - 6.10 mill/mcL [facility] Hematocrit 38.2(L) 42.0 - 52.0 % [facility] MCV 106(H) 80 - 100 fl [facility] MCH 33.6(H) 27.0 - 31.0 pg [facility] MCHC 31.6 30.0 - 36.0 g/dL [facility] RDW 13.2 11.5 - 14.5 % [facility] Hemoglobin 12.1(L) 14.0 - 18.0 g/dL [facility] Hemoglobin x 3 36.3(L) 42.0 - 54.0 % [facility] Platelets 127(L) 130 - 400 1000/mcL [facility] 12/04/2023 12/05/2023 5:0 2 AM CDT Narrative [facility] - 12/05/2023 Unless otherwise specified, test(s) performed at: [facility], [address] [place] [address], [place] [address] [employer]URNER: Dariel Doyle M.D., Ph.D For any questions, please call customer service at FREQUENCY:MONTHLY Resulting Agency Comment Specimen source: Blood Sebastian Charles MD LAB BLOOD ORDERABLES [facility] See order comments or contact performing lab Unknown, [place] documented in this encounter Visit Diagnoses Not on filedocumented in this encounter Care Teams Bookmobile Librarian Relationship Specialty Start Date End Date Harish Silver MD [address] [place] [address] PCP - General 05/17/19 documented as of this encounter
--- OUTSIDE RECORDS SUMMARY | 2023-12-07 10:07 | XMS_ITS | Clinical Summary ---
Author Name Unknown Organization [facility] [place] Address [address] [facility] [address] Phone Care Team Providers Care Licensed Practical Vocational Nurse Name Role Phone Harish Silver MD Primary Care Provider [phone] Encounters Date Type Department Care Team Description 12/04/2023 Orders Only [facility] [place] [address] [place] [phone] Sebastian Charles MD 11/13/2023 Treatment [facility] [address] [place] [address] Sebastian Charles MD 11/03/2023 Orders Only [facility] [address] [place] [phone] Sebastian Charles MD 10/02/2023 Orders Only [facility] [address] [place] [phone] Sebastian Charles MD 10/02/2023 Treatment [facility] [address] [place] [address] Sebastian Charles MD 09/11/2023 Orders Only [facility] [address] [place] [phone] Sebastian Charles MD 09/11/2023 Treatment [facility] [address] [place] [address] Sebastian Charles MD from Last 3 Months Immunizations Name Administration Dates Next Due Hepatitis B 12/22/2008,07/21/2008,06/19/2008 Influenza (IM) Preservative Free 05/13/2011 Influenza Split High Dose Pr eservative Free IM 05/18/2016,06/09/2015,05/16/2014 Influenza TIV (IM) 05/16/2013, 2,05/04/2010,07/18,06/15/2006,07/12/2002 Influenza, Quadrivalent, Pre servative Free 06/13/2018 Influenza, Trivalent, Adjuvanted 05/28/2019,04/21 Influenza, Unspecified 05/06/2020 PPD Test 07/21/2008 Pneumococcal Conjugate 13-Valent 11/05/2014 Pneumococcal Polysaccharide 02/02/2009 Shingrix 02/14/2019,12/11/2018 TD Preservative Free 03/18/2008 Tdap 07/10/2014 Zoster [...] on file Sexual Orientation Not on file Plan of Treatment Health Maintenance Due Date Last Done Comments Hepatitis B Vaccine (1 of 5 - Risk Dialysis 4-dose series) 1960 12/22/2008, 07/21/2008, 06/19/2008 Influenza Vaccine (Season Ended) 2024 05/06/2020, 05/28/2019, 06/13/2018, Additional history exists Pneumococcal Vaccine: 65+ Years Completed 5, 02/02/2009 Procedures Procedure Name Priority Date/Time Associated Diagnosis Comments CHEMISTRY Routine 12/04/2023 HEMATOLOGY Routine 12/04/2023 HEMATOLOGY Routine 11/03/2023 PD ADEQUACY Routine 11/03/2023 PDF CHEMISTRY Routine 11/03/2023 PD ADEQUACY Routine 11/03/2023 PATIENT INFORMATION Routine 11/03/2023 CHEMISTRY Routine 11/03/2023 PATIENT INFORMATION Routine 11/03/2023 IMMUNO CHEMISTRY Routine 11/03/2023 URINE CLEARANCE Routine 11/03/2023 PATIENT INFORMATION Routine 11/03/2023 HEMATOLOGY Routine 10/02/2023 CHEMISTRY Routine 10/02/2023 CHEMISTRY Routine 10/02/2023 CHEMISTRY Routine 09/11/2023 from Last 3 Months Results * (ABNORMAL) HEMATOLOGY (12/04/2023) Only the most recent of3 resultswithin the time period is included. Neutrophils 81.0(H) 40.0 - 75.0 % [facility] [...] 12/04/2023 12/05/2023 5:0 2 AM CDT Narrative [facility] - 12/05/2023 Unless otherwise specified, test(s) performed at: [facility], [address] [place] [address], [place] [address] [employer]ULT: Dariel Doyle M.D., Ph.D For any questions, please call customer service at FREQUENCY:MONTHLY Resulting Agency Comment Specimen source: Blood Sebastian Charles MD LAB BLOOD ORDERABLES [facility] See order comments or contact performing lab Unknown, [place] * (ABNORMAL) [facility] (12/04/2023) Only the most recent of5 resultswithin the time period is included. BUN 44(H) 6 - 19 mg/dL [facility] [...] 12/04/2023 12/05/2023 12: 45 PM CDT Narrative [facility] - 12/05/2023 Unless otherwise specified, test(s) performed at: [facility], [address] [place] [address], [place] [address] [employer]: Dariel Doyle M.D., Ph.D For any questions, please call customer service at FREQUENCY:MONTHLY Resulting Agency Comment Specimen source: Serum Sebastian Charles MD LAB BLOOD ORDERABLES Performing Organization Address City/[facility]/ZIP Co de Phone Number [facility] [employer] [facility] See order comments or contact performing lab Unknown, [place] * (ABNORMAL) URINE CLEARANCE (11/03/2023) Urea Nitrogen, Urine Timed 437 mg/dL [facility] Urea Nitrogen, Urine 24 Hr 5.7(L) 12.0 - 20.0 g/24 hr [facility] Urea Clear, Urine Norm 7.9(L) 64.0 - 99.0 mL/min [facility] Urea Clearance, Urine 8.8(L) 64.0 - 99.0 mL/min [facility] Urea Clear, Urine Norm Wkly 88 L/wk [facility] 11/03/2023 11/04/2023 6:4 2 AM CDT Narrative Resulting Agency Comment Specimen source: Urine Sebastian Charles MD LAB URINE ORDERABLES [facility] * PDF CHEMISTRY (11/03/2023) Urea Nitrogen, PDF 24 Hr 1,898.6 mg/24 hr [facility] Urea Nitrogen, PDF Timed 36 mg/dL [facility] Comment: A reference range for this assay has not been established for body fluids. If blood results are available for this analyte, results may be interpreted in comparison to those results. Urea Clearance, PD Fluid 2.9 mL/min [facility] Urea Clearance, PDF Norm 2.7 mL/min [facility] Urea Clear, Tot Norm Wkly 117 L/wk [facility] Urea Clear, PDF Norm Wkly 29 L/wk [facility] 11/03/2023 11/04/2023 8:1 1 AM CDT Narrative Resulting Agency Comment Specimen source: PD Fluid Sebastian Charles MD LAB BODY FLUIDS AND STOOLS ORDERABLES Performing Organization Address City/[facility]/ZIP Co de Phone Number [facility] * PD ADEQUACY (11/03/2023) Only the most recent of2 resultswithin the time period is included. Kt/V, Residual 2.06 [facility] 11/03/2023 11/04/2023 6:4 2 AM CDT Narrative [facility] - 11/04/2023 Unless otherwise specified, test(s) performed at: [facility], [address] [place] [address], [place] [address] [employer]: Dariel Doyle M.D., Ph.D For any questions, please call customer service at FREQUENCY:MONTHLY Resulting Agency Comment Specimen source: Urine Sebastian Charles MD LAB BODY FLUIDS AND STOOLS ORDERABLES Performing Organization Address [facility] de Phone Number [facility] * IMMUNO CHEMISTRY (11/03/2023) Hepatitis B Surface Ab 451 mIU/mL [facility] Comment: The anti-HBs (Hepatitis B surface antibody) is greater than or equal to 10 mIU/mL and implies immunity. The patient has either had an antibody response to HBV vaccination, received a transfusion, or has recovered from HBV infection. For post-vaccination antibody testing guidelines for the general public, refer to MMWR August 12, 2005/Vol.54 (No. 16); 1-23, and for healthcare workers, refer to MMWR August 09, 2013/Vol.62 (No. 10); 1-18. Reference Range: <10 mIU/mL ? Non-Immune >=10 mIU/mL ?Immune The magnitude of the measured result above 10 mIU/mL is not indicative of the total amount of antibody present. 11/03/2023 11/04/2023 8:5 6 AM CDT Narrative [facility] - 11/04/2023 Unless otherwise specified, test(s) performed at: [facility], [address] [place] [address], [place] [address] [employer]: Dariel Doyle M.D., Ph.D For any questions, please call customer service at FREQUENCY:MONTHLY Resulting Agency Comment Specimen source: Plasma Sebastian Charles MD LAB BLOOD ORDERABLES Performing Organization Address [facility] de Phone Number [facility] * PATIENT INFORMATION (11/03/2023) Only the most recent of3 resultswithin the time period is included. Urea Volume Distribution ([place]) 42.7 L [facility] 11/03/2023 11/04/2023 8:1 1 AM CDT Narrative [facility] - 11/04/2023 Unless otherwise specified, test(s) performed at: [facility], [address] [place] [address], [place] [address] [employer]: Dariel Doyle M.D., Ph.D For any questions, please call customer service at FREQUENCY:MONTHLY Resulting Agency Comment Specimen source: PD Fluid Sebastian Charles MD LAB BLOOD ORDERABLES [facility] from Last 3 Months Care Teams Licensed Practical Vocational Nurse Relationship Specialty Start Date End Date Harish Silver MD [address] [place] [address] PCP - General 05/17/19
--- OUTSIDE RECORDS SUMMARY | 2023-12-07 10:07 | XMS_ITS | Encounter Summary ---
Author Name Unknown Organization [facility] Address [address] [place] [address] Care Team Providers Care Cell Tester Name Role Phone Elsewhere, Pcp Primary Care Provider Unavailabl e Encounter Details Date Type Department Care Team (Latest Contact Info) Description 08/23/2023 Clinical Communication Department of Cardiovascular Medicine in [place], [place] [address] [place] [address] Suni Reid R.N. [address] [place] [address] Social History Tobacco Use Types Packs/Day Years [...] How often do you attend chur or mosque services? More than 4 times per year 04/11/2022 Do you belong to any clubs o r organizations such as congregation groups, unions, fraternal or [...] and heating? Not hard at all 05/13/2023 [facility] [...] your living situation today? I have a [facility] place to live 05/13/2023 Education Answer Date [...] encounter Miscellaneous Notes * Telephone Encounter - Suni Reid RBaileyN. - 08/23/2023 8:14 AM SALES OFFICE COORDINATOR Shaye Please let patient know we have scheduled his LAAO procedure with Dr. Andrade (already seen) on 10/17.This will be with no contrast-please be sure to tell him this and we will need to use general anesthesia, with JASON during the procedure due to no contrast. I have ordered labs/ECG to be done prior to procedure. Per Dr. Andrade, no repeat imaging is needed. Please schedule this and his f/u. Tania Culp S OFFICE COORDINATOR documented in this encounter Plan of Treatment Not on file documented as of this encounter Visit Diagnoses Not on filedocumented in this encounter Care Teams Cell Tester Relationship Specialty Start Date End Date Elsewhere, Pcp PCP - General Internal Medicine 06/05/22 11/23/23 documented as of this encounter
--- OUTSIDE RECORDS SUMMARY | 2023-12-07 10:07 | XMS_ITS | Encounter Summary ---
Author Name Unknown Organization [facility] Address [address] [place] [address] Care Team Providers Care Management Retail Intern Name Role Phone Elsewhere, Pcp Primary Care Provider Unavailabl e Encounter Details Date Type Department Care Team (Latest Contact Info) Description 08/23/2023 Clinical Communication Department of Cardiovascular Medicine in [place], [place] [address] [place] [address] Suni Reid R.N. [address] [place] [address] Social History Tobacco Use Types Packs/Day Years [...] How often do you attend chur or rastafari services? More than 4 times per year 04/11/2022 Do you belong to any clubs o r organizations such as christianity groups, unions, fraternal or [...] and heating? Not hard at all 05/13/2023 [facility] - Occupational [...] your living situation today? I have a [facility] place to live 05/13/2023 Education Answer [...] Miscellaneous Notes * Telephone Encounter - Suni Reid, R.N. - 08/23/2023 8:17 AM [employer] Please send the following CT's to [facility] for LAAO: 12/03/21 CT Chest with IV Contrast 08/07/23 JASON [employer] documented in this encounter Plan of Treatment Not on file documented as of this encounter Visit Diagnoses Not on filedocumented in this encounter Care Teams Management Retail Intern Relationship Specialty Start Date End Date Elsewhere, Pcp PCP - General Internal Medicine 06/05/22 11/23/23 documented as of this encounter
--- OUTSIDE RECORDS SUMMARY | 2023-12-07 10:07 | XMS_ITS | Encounter Summary ---
Author Name Unknown Organization [facility] Address [address] [place] [address] Care Team Providers Care Ccie Name Role Phone Elsewhere, Pcp Primary Care Provider Unavailabl e Reason for Referral * Outpatient (Routine) - Closed Specialty Diagnoses / Procedures Referred By Albino henao Referred To Contact Diagnoses Atrial Fibrillation Paroxysmal (HCC) Procedures Echo Transesophageal (JASON) - Procedural Guidance Radha Andrade M.B.B.S. [address] [place] [phone] [facility] Referral ID Status Reason Start Date Expiration Date Visits Re quested Visits Authorized [id number] Closed 10/17/2023 10/16/2024 1 1 CLERK Reason for Visit * Auth/Cert (Routine) Specialty Diagnoses / Procedures Referred By Albino henao Referred To Contact Diagnoses Atrial Fibrillation Paroxysmal (HCC) Atrial Fibrillation Paroxysmal (HCC) [I48.0] Procedures IA PERC TXCATH CLSR LT ATR APNDG IA ECHO JASON 2D COMPLETE CLAY CLOSURE WITH IMPLANT Referral ID Status Reason Start Date Expiration Date Visits Re quested Visits Authorized [id number] 1 1 Encounter Details Date Type Department Care Team (Latest Contact Info) Description 10/17/2023 7:40 AM HR CLERK - 10/17/2023 8:56 AM HR CLERK Hospital Encounter Department of Cardiovascular Diseases in [place], [place] [address] [place] [phone] Radha Andrade M.B.B.S. [address] [place] [phone] Atrial Fibrillation Paroxysmal (HCC) Discharge Disposition: Home [...] often do you attend chur ch or oriental orthodox services? More than 4 times per year 04/11/2022 Do you belong to any clubs o r organizations such as jain groups, unions, fraternal or [...] and heating? Not hard at all 05/13/2023 [facility] Stress Questionnaire Answer Date [...] Procedure Name Priority Date/Time Associated Diagnosis Comments ECHO TRANSESOPHAGEAL (JASON) - PROCEDURAL GUIDANCE Routine 10/17/2023 4:25 PM HR CLERK Atrial Fibrillation Paroxysmal (HCC) documented in this encounter Results * Echo Transesophageal (JASON) - Procedural Guidance (10/17/2023 4:25 PM HR CLERK) Ejection Fraction 60 MC EIMD Anatomical Region Laterality Modality Other 10/17/2023 7:40 AM HR CLERK Narrative 10/17/2023 2:35 PM HR CLERK For the complete report, see the Order-Level [...] 14. Residual iatrogenic atrial septal defect with [id number] shunt at the site of transseptal puncture. [...] 14. Residual iatrogenic atrial septal defect with [id number] shunt atthe site of transseptal puncture. 15. The remaining findings are unchanged from the pre-procedural images. For the complete report, see the Order-Level Documents. Radha Giles CV ECHO PROCEDURE S documented in this encounter Visit Diagnoses Diagnosis Atrial Fibrillation Paroxysmal (HCC) documented in this encounter Care Teams Ccie Relationship Specialty Start Date End Date Elsewhere, Pcp PCP - General Internal Medicine 06/05/22 11/23/23 documented as of this encounter
--- OUTSIDE RECORDS SUMMARY | 2023-12-07 10:07 | XMS_ITS | Encounter Summary ---
Author Name Unknown Organization [facility] Address [address] [place] [address] Care Team Providers Care Ems Helicopter Pilot Name Role Phone Harish Silver MD Primary Care Provider [phone] Encounter Details Date Type Department Care Team Description 11/13/2023 Treatment [facility] [address] [place] [address] Sebastian Charles MD [address] [place] [address] Social History Tobacco Use Types Packs/Day Years Used Date Smoking Tobacco: Never Alcohol Use Standard Drinks/Week Comments No 0 (1 standard drink = 0.6 oz pur e alcohol) Sex and Gender Information Value Date Recorded Sex Assigned at Not on file Gender Identity Not on file Sexual Orientation Not on file documented as of this encounter Miscellaneous Notes * Dialysis Note - Sebastian Charles MD - 11/13/2023 12:16 PM CDT Date: Nov 13, 2023 Patient Name: David Castro : 1940 Chart #: [id number] Sex: M This visit was conducted using video technology to complete the visit. Patient consent was obtained. Pt location is indicated below. I participated in telehealth svcs from a remote location in our service area. This patient was personally seen for a complete visit as part of routine monthly dialysis care. A review of the dialysis treatment, blood pressure, estimated dry weight, and recent lab values was made. These were discussed with the patient and staff as necessary. CHAIN LINK FENCE INSTALLER: Sebastian Charles MD LOCATION: [phone] SCHEDULE: No Routine Schedule Subjective Tolerating dialysis well. 11/12: He is doing very well. He had Watchman placed, went well. On Eliquis for 2 months after, paris d/c. Needs meniscus surgery on knee. Still walking a lot. No edema or SOB. PD going really well. Review of Systems None reported. Exam Respiratory - Clear to auscultation bilaterally. nl effort Cardiovascular - Regular rate. Regular rhythm. Gastrointestinal - Normal bowel sounds, soft, non-tender. Edema - Trace edema. PD catheter exit site - looks excellent with no erythema per rotary shear worker helperradio disc jockey List Medication Sig Start Date allopurinol 100 mg tablet Take 1 tablet by mouth once a day amoxicillin 500 mg capsule Take 4 capsule by mouth once a day as directed. 1 hour before dental procedure. calcitriol 0.25 mcg capsule Take 1 capsule by mouth three times a week Dialyvite (b complex-vitamin c-folic acid) 100-1 mg tablet 1 tablet by mouth once a day 07/27/2022 docusate sodium 100 mg tablet Take 1 tablet by mouth twice a day as needed. - for constipation famotidine 20 mg tablet Take 1 tablet by mouth once a day gentamicin 0.1% cream Apply a small amount to skin once a day as directed metoprolol tartrate 25 mg tablet Take 1/2 by mouth twice a day pantoprazole 40 mg tablet,delayed release (DR/EC) Take 1 tablet by mouth twice a day torsemide 20 mg tablet Take 1 tablet by mouth once a day Vitamin D3 (cholecalciferol (vitamin d3)) 50 mcg (2,000 unit) tablet Take 1 tablet by mouth once a day Allergy List Allergen Reaction Reaction Severity Onset Date Tegretol Unknown Medications reviewed and no changes were made. Treatment and Adequacy Assessment BUN mg/dL 45 (11/03/23) 44 (10/02/23) 64 (08/28/23) CREATININE (MG/DL) IN SER/PLAS mg/dL 4.17 (11/03/23) 4.07 (10/02/23) 4.49 (08/28/23) KT/V, PERITONEAL L/wk 0.68 (11/03/23) 0.56 (07/28/23) 0.60 (05/03/23) KT/V, RESIDUAL L/wk 2.06 (11/03/23) 1.36 (07/28/23) 1.61 (05/03/23) Kt/V is adequate. Continue current prescription. Lowered prescription October 2022 and on 6 days/week now with excellent residual function. residual function higher than prior. No change to prescription. I gave him persmission to take two nights off if he wants to travel for a weekend somewhere as he expressed interest in doing this (trip to [place] to visit family) Peritoneal Dialysis Access Assessment Placed on: 07/[address] Kaur No further leaking from PD cath site Anemia Assessment HEMOGLOBIN (G/DL) IN BLOOD g/dL 12.2 (11/03/23) 12.4 (10/02/23) 14.6 (08/28/23) WBC (BLOOD) 1000/mcL 5.71 (11/03/23) 6.25 (10/02/23) 7.04 (08/28/23) IRON SATURATION % 29 (01/26/22) 7 (12/22/21) 12 (12/01/21) FERRITIN ng/mL 25 (10/02/23) 57 (06/23/23) 66 (05/31/23) TRANSFERRIN SAT% % 20 (11/03/23) 20 (10/02/23) 34 (08/28/23) 25 (07/21/23) 59 (06/23/23) Hemoglobin is above goal. Iron Saturation is at goal. Ferritin is below goal. Will adjust SIRISHA and intravenous iron. No SIRISHA with Hgb >11 No iron at this time is needed Nutritional and Metabolic Assessment ALBUMIN (G/DL) g/dL 3.4 (11/03/23) 3.3 (10/02/23) 3.5 (08/28/23) BICARBONATE (CO2) mEq/L 28 (11/03/23) 29 (10/02/23) 31 (08/28/23) POTASSIUM (MMOL/L) IN SER/PLAS mEq/L 4.5 (11/03/23) 3.9 (10/02/23) 3.8 (09/11/23) Sodium mEq/L 142 (11/03/23) 140 (10/02/23) 141 (08/28/23) 25 OH VITAMIN D ng/mL 39.1 (06/23/23) 30.8 (10/07/22) 17.8 (08/24/22) Albumin is below goal. Encourage high biological value protein intake. Oral nutritional supplement program. Potassium is at goal. He is on protein supplement, high protein diet, and albumin remains low but stable. Given protein drink and powder to use Bone and Mineral Metabolism Assessment CALCIUM mg/dL 8.5 (11/03/23) 8.6 (10/02/23) 8.7 (08/28/23) CALCIUM (MG/DL) CORRECTED FOR ALBUMIN IN SER/PLAS mg/dL 9.0 (11/03/23) 9.2 (10/02/23) 9.1 (08/28/23) CALCIUM PHOSPHORUS PRODUCT, COR 28 (11/03/23) 33 (10/02/23) 35 (08/28/23) PHOSPHATE (MG/DL) IN SER/PLAS mg/dL 3.1 (11/03/23) 3.6 (10/02/23) 3.9 (08/28/23) IPTH pg/mL 235 (10/02/23) 341 (05/31/23) 252 (02/23/23) Corrected calcium is at goal. Phosphorus is at goal. Intact PTH is at goal. Cardiovascular Assessment Blood pressure reviewed and is acceptable. Continue same cardiovascular medications. Estimated dry weight is appropriate. Use 2.5% bags with every 3rd day 1.5% bag. Note he does not UF with 1.5% bags (net zero roughly) but UOP excellent. Transplant Status Patient declined to be evaluated. He was evaluated on past, on hold for years, now advanced age and he has elected to not pursue any further given risks associated with transplant and his GI issues as well. Resuscitation Status Additional Comments: Stable PD, doing well Continue high protein diet Residual function excellent, no change in prescription for PD Sebastian Charles MD [ Signed And locked electronically On 11/13/2023 at 12:19:26 PM ] Transcribed: Sebastian Charles ( 11/13/2023 ) documented in this encounter Plan of Treatment Not on file documented as of this encounter Visit Diagnoses Not on filedocumented in this encounter Care Teams Ems Helicopter Pilot Relationship Specialty Start Date End Date Harish Silver MD [address] [place] [address] PCP - General 05/17/19 documented as of this encounter
--- OUTSIDE RECORDS SUMMARY | 2023-12-07 10:07 | XMS_ITS | Encounter Summary ---
Author Name Unknown Organization [facility] Address [address] [place] [address] Care Team Providers Care Psychosocial Rehabilitation Counselor Name Role Phone Elsewhere, Pcp Primary Care Provider Unavailabl e Reason for Visit * Auth/Cert (Routine) Specialty Diagnoses / Procedures Referred By Contac t Referred To Contact Diagnoses Atrial Fibrillation Paroxysmal (HCC) Atrial Fibrillation Paroxysmal (HCC) [I48.0] Procedures SD PERC TXCATH CLSR LT ATR APNDG SD ECHO JASON 2D COMPLETE CLAY CLOSURE WITH IMPLANT Referral ID Status Reason Start Date Expiration Date Visits Re quested Visits Authorized [id number] 1 1 Encounter Details Date Type Department Care Team (Late st Contact Info) Description 10/17/2023 11:15 AM HUMANE AGENT - 10/17/2023 3:15 PM HUMANE AGENT Surgery Division of Cardiovascular Diseases in [place], [place] [address] [place] [phone] Radha Andrade M.B.B.S. [address] [place] [phone] CLAY CLOSURE WITH IMPLANT Social History Tobacco Use Types Packs/Day Years [...] How often do you attend chur or episcopal services? More than 4 times per year 04/11/2022 Do you belong to any clubs o r organizations such as lutheran groups, unions, fraternal or [...] Not hard at all 05/13/2023 [facility] of Occupat ional Health - Occupational [...] your living situation today? I have a [facility] place to live 05/13/2023 Education Answer [...] Sign Reading Time Taken Comments Blood Pressure 100/48 10/17/2023 3:15 PM HUMANE AGENT Pulse 61 10/17/2023 3:15 PM HUMANE AGENT Temperature 36.6 ??C (97.9 ??F) 10/17/2023 10:[address] Respiratory Rate 16 10/17/2023 10:05 AM HUMANE AGENT Oxygen Saturation 98% 10/17/2023 3:15 PM HUMANE AGENT Inhaled Oxygen Concentration - - Weight 80.5 kg (177 lb 7.5 oz) 10/17/2023 10:05 AM HUMANE AGENT Height 172.5 cm (5' 7.91) 10/17/2023 10:[address] Body Mass Index 27.05 10/17/2023 10:05 AM HUMANE AGENT documented in this encounter Discharge Summaries * [...] 05 Cardiovascular Disease 11/28/2023 1:00 PM Sarina Miller, P.A.-C., M.S.; CVD LAAO TODD 01 ROAL; RM 01 ROAL CVD Cardiovascular Disease For appointment details refer to your Patient Appointment Guide. HOSPITAL COURSE: Admission Weight: 80.5 kg Dismissal Weight: 80.5 kg BMI: Body mass index is 27.05 kg/m??. David Castro is an 82 year old male discharged from [facility] following planned left atrial appendage occlusion with [...] Nolasco APRN, C.N.PBailey, M.S.N. 10/17/23 7:01 PM HUMANE AGENT [facility] CVD Interventional/Heart Rhythm NE AGENT documented in this encounter Discharge Instructions * Discharge Instructions* Viki Nolasco APRN, C.N.P., M.S.N. - 10/17/2023 9:02 AM HUMANE AGENT You were discharged from the [facility] CVD Interventional/Heart Rhythm Service. Please identify [...] hours, on weekends, nights, or holidays call [phone] and ask for Electrophysiology Surgical Scrub Tech. General Follow-Up: You should follow up locally with your primary care provider in approximately 7- 10 days for post hospitalization follow-up. Take a copy of the dismissal summary from [facility] to your provider. [facility] Follow-Up: A follow-up appointment has been scheduled for you in approximately 6 weeks. Tests will include a cardiac CT and basic laboratory studies. If you have not been notified about your appointment, please contact the electrophysiology hospital education coordinator at . Heart Failure Assessment: Weigh [...] 2.5 mg twice daily for 3-6 months. NE AGENT documented in this encounter Medications at Time [...] informed consent obtained. Avis Sanchez Cardiac Electrophysiology [facility] NE AGENT documented in this encounter H&P Notes * Igor Monet M.B.B.S. - 10/17/2023 10:33 AM CST Images from the original note were not included. PATIENT: David Castro : 1940 DATE OF SERVICE: 10/17/2023 SUBJECTIVE REFERRAL SOURCE Avis Burch. HISTORY OF PRESENT ILLNESS Mr. Castro is a 82 y.o. male with history notable for paroxysmal atrial fibrillation, coronary artery disease, whim-ko-bupuebwm aortic stenosis, hypertension and end-stage renal disease [...] the above stated plan. Chan Vela 10/17/2023 NE AGENT documented in this encounter Procedure Notes * [...] with the modified Seldinger technique. A 16 Haitian and 8 Haitian sheath were placed in situ. Heparin bolus [...] 15-20%. Tug test was satisfactory. The Position, [place], Size, Seal (PASS) criteria were satisfied. The [...] follow-up 4. Discharge once dismissal criteria met. NE AGENT documented in this encounter Miscellaneous Notes * Hospital Course - Viki Nolasco APRN, C.N.P., M.S.N. - 10/17/2023 5:51 PM CST David Castro is an 82 year old male discharged from [facility] following planned left atrial appendage occlusion with [...] will be to start Plavix monotherapy lifelong. NE AGENT documented in this encounter Plan of Treatment Not on file documented as of this encounter Procedures Procedure Name Priority Date/Time Associated Diagnosis Comments HEART RHYTHM PROCEDURE Routine 10/17/2023 2:19 PM HUMANE AGENT Atrial Fibrillation Paroxysmal (HCC) HEART RHYTHM PROCEDURE Routine 10/17/2023 2:19 PM HUMANE AGENT Atrial Fibrillation Paroxysmal (HCC) ADULT OXYGEN THERAPY Routine 10/17/2023 2:00 PM HUMANE AGENT ADULT OXYGEN THERAPY Routine 10/17/2023 2:00 PM HUMANE AGENT ACT, POCT, B Routine 10/17/2023 1:38 PM HUMANE AGENT ACT, POCT, B Routine 10/17/2023 1:20 PM HUMANE AGENT POTASSIUM, S/P Routine 10/17/2023 10:25 AM HUMANE AGENT documented in this encounter Results * CLAY CLOSURE W/ IMPLANT, TRANSESPOHAGEAL (JASON) ECHOCARDIOGRAM (10/17/2023 2:19 PM HUMANE AGENT) Anatomical Region Laterality Modality X-Ray Angiograph y 10/17/2023 1:01 PM HUMANE AGENT Narrative 10/22/2023 9:11 AM HUMANE AGENT For the complete report, see the Order-Level [...] with the modified Seldinger technique. A 16 Haitian and 8 Haitian sheath were placed in situ. ?? Heparin bolus was administered maintaining an ACT of >300 seconds. ??Baseline JASON evaluation demonstrated a small anterior pericardial effusion that remained stable throughout the procedure. ??Left atrial appendage anatomy was amenable to closure. ??There was no appendage thrombus. ?? We advanced a Dopios connect system into the SVC and pulled [...] 15-20%. ??Tug test was satisfactory. The Position, [place], Size, Seal (PASS) criteria were satisfied. The [...] guidance with themodified Seldinger technique. A 16 Haitian and 8 Haitian sheath were placedin situ. Heparin bolus was [...] evidence of leak. There was excellent compression [id number]%. Tug test was satisfactory. The Position, [place], Size, Seal(PASS) criteria were satisfied. The device [...] (Activated Clotting Time), POCT (10/17/2023 1:38 PM HUMANE AGENT) [facility] Activated Clotting Time, POCT 310(H) 84 - 139 sec 10/17/2023 1:49 PM HUMANE AGENT PCSM Blood 10/17/2023 1:38 PM HUMANE AGENT 10/17/2023 1:50 PM HUMANE AGENT Unknown Provider LAB POCT ORDERABLES - DEVICE Performing Organization Address [facility] Co de Phone Number POC T [facility] [address] [place], [place] [phone] [place] [address] [facility] [address] [place] [address] * (ABNORMAL) ACT (Activated Clotting Time), POCT (10/17/2023 1:20 PM HUMANE AGENT) Activated Clotting Time, POCT 273(H) 84 - 139 sec 10/17/2023 1:31 PM HUMANE AGENT PCSM Blood 10/17/2023 1:20 PM HUMANE AGENT 10/17/2023 1:31 PM HUMANE AGENT Unknown Provider LAB POCT ORDERABLES - DEVICE Performing Organization Address [facility] Co de Phone Number POC RST [facility] [address] [place] [address], [facility] [address] [place] [address] * Potassium (10/17/2023 10:25 AM HUMANE AGENT) Potassium, S 4.6 3.6 - 5.2 mmol/L 10/17/2023 11:29 AM HUMANE AGENT DTL Blood (Blood, Venous) 10/17/2023 10:25 AM HUMANE AGENT 10/17/2023 11:18 AM HUMANE AGENT Radha Giles LAB BLOOD ADD-ON Performing Organization Address City/[facility] Co de Phone Number [facility] [address] [place] [address], [facility] [address] [place] [address] documented in this encounter Visit Diagnoses Diagnosis [...] drug clearance factors. Given 10/17/2023 4:07 PM HUMANE AGENT 2.5 mg fentaNYL injection 25 mcg (SUBLIMAZE) [...] lidocaine 10 mg/mL (1 %) injection (XYLOCAINE) Code/trauma/sedation medication, Starting on Mon10/17/23 at 1301, Intraprocedure (CV) Given 10/17/2023 1:54 PM HUMANE AGENT 5 mL Right Groin Given 10/17/2023 1:00 PM HUMANE AGENT 5 mL Ri ght Groin naloxone injection 0.2 mg (NARCAN) 0.2 mg, [...] Recently Administered Medications Times are shown in HUMANE AGENT. Scheduled Medication Order 10/15/2023 10/16/2023 10/17/2023 apixaban [...] ineffective documented in this encounter Care Teams Psychosocial Rehabilitation Counselor Relationship Specialty Start Date End Date Elsewhere, Pcp PCP - General Internal Medicine 06/05/22 11/23/23 documented as of this encounter
--- OUTSIDE RECORDS SUMMARY | 2023-12-07 10:07 | XMS_ITS | Encounter Summary ---
Author Name Unknown Organization [facility] Address [address] [place] [address] Care Team Providers Care Business Technology Analyst Name Role Phone Elsewhere, Pcp Primary Care Provider Unavailabl e Reason for Visit * Reason Comments Patient Education * Outpatient (Routine) - Closed Specialty Diagnoses / Procedures Referred By Contpooja t Referred To Contact Cardiovascular Disease Radha Andrade M.B.B.S. [address] [place] [phone] [facility] Referral ID Status Reason Start Date Expiration Date Visits Re quested Visits Authorized [id number] Closed 08/23/2023 08/22/2026 1 1 Encounter Details Date Type Department Care Team (Latest Contact Info) Description 10/16/2023 1:00 PM CORE SHAPER TOP Virtual Visit Department of Cardiovascular Medicine in [place], [place] [address] [place] [phone] Radha Andrade M.B.B.S. [address] [place] [phone] Abbey Elliott, R.N. Atrial Fibrillation Paroxysmal (HCC) (Primary Dx) Social History Tobacco Use Types Packs/Day Years [...] often do you attend chur ch or lutheran services? More than 4 times per year 04/11/2022 Do you belong to any clubs o r organizations such as rastafari groups, unions, fraternal or [...] and heating? Not hard at all 05/13/2023 [facility] of Occupat ional Health - Occupational Stress [...] your living situation today? I have a [facility] place to live 05/13/2023 Education Answer [...] as of this encounter Progress Notes * Abbey Elliott, R.N. - 10/16/2023 1:00 PM CST SUBJECTIVE REASON FOR VISIT Pre-procedure education OBJECTIVE Nurse education visit was completed within the Pre-Procedure Clinic (PPC) as ordered by the referring provider for a Nicu Rn readiness review prior to procedure. The visit was conducted via telephone. Procedure to be done: Left Atrial Appendage (CLAY) Closure Date of procedure: 10/17/2023 HERB completed within 30 days of procedure? No; to be completed in Nicu Rn pre-procedure Labs completed within 45 days of procedure? No; scheduled on 10/16/2023 ECG completed within designated timeframe of procedure? No; scheduled on 10/16/2023 Allergy to contrast dye/iodine? No Medications -- Vitamins/Supplements Instructions: Do not take vitamins or supplements the morning of the procedure. Anticoagulation Plan Not applicable ASSESSMENT / PLAN Information Discussed Reviewed pre-procedure instructions with patient/family including: Basic information about the scheduled procedure. Fasting for 8 hours, 6 hours, and 2 hours prior to report time. Please refer to the ???Instructions To Get Ready for Your Cardiac Catheterization or Heart Rhythm Procedure: [facility] pamphlet for further details. Taking all medications as instructed. Calling the [facility] Service Line ([phone]) the evening before the procedure between the hours of 7:00 pm and midnight to learn what time and where to report to the hospital the next day. Needing a responsible adult (18 years of age or older) to be present the day of procedure includingat discharge for transportation home. Planning to stay within 100 miles of [facility] overnight. Visitor Policy Please check the [place] Visitor Policy website for the most up to date visitor policy information. Disposition/Recommendation: self-care is appropriate at this time, patient encouraged to call back with questions Information/Education: patient/caller able to teach back Caller agreeable to plan of care: yes The following references were used: nursing clinical judgement, patient education resources: as documented in the Education Activity, and [facility] protocol: Cardiovascular Clinic Pre-Cardiac Invasive Catheterization Procedure Patient Management Additional education materials provided: None SHAPER TOP documented in this encounter Plan of Treatment Not on file documented as of this encounter Visit Diagnoses Diagnosis Atrial Fibrillation Paroxysmal (HCC)- Primary documented in this encounter Care Teams Business Technology Analyst Relationship Specialty Start Date End Date Elsewhere, Pcp PCP - General Internal Medicine 06/05/22 11/23/23 documented as of this encounter
--- OUTSIDE RECORDS SUMMARY | 2023-12-07 10:08 | XMS_ITS | Encounter Summary ---
Author Name Unknown Organization [facility] Address [address] [facility] [address] [place] [address] Care Team Providers Care Cake Winder Name Role Phone Harish Silver MD Primary Care Provider [phone] Encounter Details Date Type Department Care Team Description 08/28/2023 Orders Only [facility] [place] [address] [facility] [address] [place] [address] Sebastian Charles MD [address] [place] [address] Social History Tobacco Use Types [...] Priority Date/Time Associated Diagnosis Comments HEMATOLOGY Routine 08/28/2023 CHEMISTRY Routine 08/28/2023 documented in this encounter Results * (ABNORMAL) Spectrae Chemistry (08/28/2023) BUN 64(H) 6 - 19 mg/dL [facility] Creatinine 4.49(H) 0.60 - 1.30 mg/dL [facility] BUN/Creatinine Ratio 14.3 10.0 - 20.0 [facility] Sodium 141 136 - 145 mEq/L [facility] Potassium 3.4(L) 3.5 - 5.1 mEq/L [facility] Chloride 104 96 - 108 mEq/L [facility] Bicarbonate (CO2) 31 20 - 31 mEq/L [facility] Calcium 8.7 8.7 - 10.4 mg/dL [facility] Comment: Please note change in reference range. Corrected Calcium 9.1 8.7 - 10.4 mg/dL [facility] Comment: Corrected Calcium is not equivalent to measured Ionized Calcium. Phosphorus 3.9 2.6 - 4.5 mg/dL [facility] Calcium Phosphorus Product 34 0 - 54 [facility] Calcium Phosporus Product, Cor 35 0 - 54 [facility] Albumin 3.5 3.5 - 5.2 g/dL [facility] Iron 86 45 - 160 mcg/dL [facility] UIBC 165 155 - 355 mcg/dL [facility] TIBC 251 185 - 515 mcg/dL [facility] Iron Saturation (TSat) 34 20 - 55 % [facility] 08/28/2023 08/29/2023 5:2 8 AM BOILER ERECTOR Narrative [facility] - 08/29/2023 Unless otherwise specified, test(s) performed at: [facility], [address] [place] [address], [place] [address] DICTAPHONE OPERATOR: Dariel Doyle M.D., Ph.D For any questions, please call customer service at FREQUENCY:MONTHLY Resulting Agency Comment Specimen source: Serum Sebastian Charles MD LAB BLOOD ORDERABLES [facility] * (ABNORMAL) HEMATOLOGY (08/28/2023) Neutrophils 73.0 40.0 - 75.0 % [facility] Lymphocytes Relative 7.7(L) 19.0 - 48.0 % [facility] Monocytes 6.6 3.0 - 10.0 % [facility] Eosinophils Relative 11.2(H) 0.0 - 7.0 % [facility] Basophils Relative 0.2 0.0 - 1.5 % [facility] JUAN ANTONIO 1.4 0.0 - 4.0 % [facility] WBC 7.04 4.80 - 10.80 1000/mcL [facility] RBC 4.10(L) 4.70 - 6.10 mill/mcL [facility] Hematocrit 42.6 42.0 - 52.0 % [facility] MCV 104(H) 80 - 100 fl [facility] MCH 35.7(H) 27.0 - 31.0 pg [facility] MCHC 34.4 30.0 - 36.0 g/dL [facility] RDW 13.9 11.5 - 14.5 % [facility] Hemoglobin 14.6 14.0 - 18.0 g/dL [facility] Comment: Custom Exception Hemoglobin x 3 43.8 42.0 - 54.0 % [facility] 08/28/2023 08/29/2023 4:0 7 AM BOILER ERECTOR Narrative [facility] - 08/29/2023 Unless otherwise specified, test(s) performed at: [facility], [address] [place] [address], [place] [address] DICTAPHONE OPERATOR: Dariel Doyle M.D., Ph.D For any questions, please call customer service at FREQUENCY:MONTHLY Resulting Agency Comment Specimen source: Blood Sebastian Charles MD LAB BLOOD ORDERABLES [facility] documented in this encounter Visit Diagnoses Not on filedocumented in this encounter Care Teams Cake Winder Relationship Specialty Start Date End Date Harish Silver MD [address] [place] [address] PCP - General 05/17/19 documented as of this encounter
--- OUTSIDE RECORDS SUMMARY | 2023-12-07 10:08 | XMS_ITS | Encounter Summary ---
Author Name Unknown Organization [facility] Address [address] [facility] [address] [place] [address] Care Team Providers Care Aviation Tactical Readiness Officer Name Role Phone Harish Silver MD Primary Care Provider [phone] Encounter Details Date Type Department Care Team Description 11/03/2023 Orders Only [facility] [place] [address] [place] [address] Sebastian Charles MD [address] [place] [address] Social History Tobacco Use Types [...] Procedure Name Priority Date/Time Associated Diagnosis Comments URINE CLEARANCE Routine 11/03/2023 PDF CHEMISTRY Routine 11/03/2023 PD ADEQUACY Routine 11/03/2023 PD ADEQUACY Routine 11/03/2023 IMMUNO CHEMISTRY Routine 11/03/2023 PATIENT INFORMATION Routine 11/03/2023 PATIENT INFORMATION Routine 11/03/2023 PATIENT INFORMATION Routine 11/03/2023 HEMATOLOGY Routine 11/03/2023 CHEMISTRY Routine 11/03/2023 documented in this encounter Results * (ABNORMAL) HEMATOLOGY (11/03/2023) Neutrophils 69.3 40.0 - 75.0 % [facility] Lymphocytes Relative 6.8(L) 19.0 - 48.0 % [facility] Monocytes 5.6 3.0 - 10.0 % [facility] Eosinophils Relative 16.6(H) 0.0 - 7.0 % [facility] Basophils Relative 0.6 0.0 - 1.5 % [facility] JUAN ANTONIO 1.1 0.0 - 4.0 % [facility] WBC 5.71 4.80 - 10.80 1000/mcL [facility] RBC 3.55(L) 4.70 - 6.10 mill/mcL [facility] Hematocrit 38.0(L) 42.0 - 52.0 % [facility] MCV 107(H) 80 - 100 fl [facility] MCH 34.4(H) 27.0 - 31.0 pg [facility] MCHC 32.1 30.0 - 36.0 g/dL [facility] RDW 13.7 11.5 - 14.5 % [facility] Hemoglobin 12.2(L) 14.0 - 18.0 g/dL [facility] Hemoglobin x 3 36.6(L) 42.0 - 54.0 % [facility] 11/03/2023 11/04/2023 9:2 2 AM CDT Narrative [facility] - 11/04/2023 Unless otherwise specified, test(s) performed at: [facility], [address] [place] [address], [place] [address] PAYMENT PROCESSOR: Dariel Doyle M.D., Ph.D For any questions, please call customer service at FREQUENCY:MONTHLY Resulting Agency Comment Specimen source: Blood Sebastian Charles MD LAB BLOOD ORDERABLES [facility] * PD ADEQUACY (11/03/2023) Kt/V, Residual 2.06 [facility] 11/03/2023 11/04/2023 6:4 2 AM CDT Narrative [facility] - 11/04/2023 Unless otherwise specified, test(s) performed at: [facility], [address] [place] [address], [place] [address] PAYMENT PROCESSOR: Dariel Doyle M.D., Ph.D For any questions, please call customer service at FREQUENCY:MONTHLY Resulting Agency Comment Specimen source: Urine Sebastian Charles MD LAB BODY FLUIDS AND STOOLS ORDERABLES Performing Organization Address [facility] Co de Phone Number [facility] * PDF CHEMISTRY (11/03/2023) [...] FLUIDS AND STOOLS ORDERABLES Performing Organization Address [facility] Co de Phone Number [facility] * PD ADEQUACY (11/03/2023) Kt/V, Total 2.74 [facility] Comment: KDOQI Guidelines recommend weekly Kt/V of >=1.7 for adults. Kt/V, Peritoneal 0.68 [facility] PNA, Normalized 0.98 g/kg/day [facility] PNA 72 g/day [facility] 11/03/2023 11/04/2023 8:1 1 AM CDT Narrative Resulting Agency Comment Specimen source: PD Fluid Sebastian Charles MD LAB BODY FLUIDS AND STOOLS ORDERABLES [facility] * PATIENT INFORMATION (11/03/2023) Urea Volume Distribution (Zoraida) 42.7 L [facility] 11/03/2023 11/04/2023 8:1 1 AM CDT Narrative [facility] - 11/04/2023 Unless otherwise specified, test(s) performed at: [facility], [address] [place] [address], [place] [address] PAYMENT PROCESSOR: Dariel Doyle M.D., Ph.D For any questions, please call customer service at FREQUENCY:MONTHLY Resulting Agency Comment Specimen source: PD Fluid Sebastian Charles MD LAB BLOOD ORDERABLES Performing Organization Address City/[facility]/ZIP Co de Phone Number [facility] * (ABNORMAL) Spectrae Chemistry (11/03/2023) BUN 45(H) 6 - 19 mg/dL [facility] Creatinine 4.17(H) 0.60 - 1.30 mg/dL [facility] BUN/Creatinine Ratio 10.8 10.0 - 20.0 [facility] Sodium 142 136 - 145 mEq/L [facility] Potassium 4.5 3.5 - 5.1 mEq/L [facility] Chloride 107 96 - 108 mEq/L [facility] Bicarbonate (CO2) 28 20 - 31 mEq/L [facility] Calcium 8.5(L) 8.7 - 10.4 mg/dL [facility] Comment: Please note change in reference range. Corrected Calcium 9.0 8.7 - 10.4 mg/dL [facility] Comment: Corrected Calcium is not equivalent to measured Ionized Calcium. Phosphorus 3.1 2.6 - 4.5 mg/dL [facility] Calcium Phosphorus Product 26 0 - 54 [facility] Calcium Phosporus Product, Cor 28 0 - 54 [facility] Albumin 3.4(L) 3.5 - 5.2 g/dL [facility] Iron 60 45 - 160 mcg/dL [facility] UIBC 241 155 - 355 mcg/dL [facility] TIBC 301 185 - 515 mcg/dL [facility] Iron Saturation (TSat) 20 20 - 55 % [facility] 11/03/2023 11/04/2023 8:3 7 AM CDT Narrative Resulting Agency Comment Specimen source: Serum Sebastian Charles MD LAB BLOOD ORDERABLES Performing Organization Address [facility] Co de Phone Number [facility] * PATIENT INFORMATION (11/03/2023) Pathologist [facility] Patient BSA 1.91 sq. M. [facility] Comment: Normalized values are calculated using the patient's actual BSA and normalized to the average BSA of 1.73m2. 11/03/2023 11/04/2023 8:3 7 AM CDT Narrative [facility] - 11/04/2023 Unless otherwise specified, test(s) performed at: [facility], [address] [place] [address], [place] [address] PAYMENT PROCESSOR: Dariel Doyle M.D., Ph.D For any questions, please call customer service at FREQUENCY:MONTHLY Resulting Agency Comment Specimen source: PD Fluid Sbeastian Charles MD LAB BLOOD ORDERABLES Performing Organization Address City/[facility]/ZIP Co de Phone Number [facility] [...] to MMWR August 12, 2005/Vol.54 (No. 16); -, and for healthcare workers, refer to MMWR August 09, 2013/Vol.62 (No. 10); 1-18. Reference Range: <10 mIU/mL ? Non-Immune >=10 mIU/mL ?Immune The magnitude of the measured result above 10 mIU/mL is not indicative of the total amount of antibody present. 11/03/2023 11/04/2023 8:5 6 AM CDT Narrative [facility] - 11/04/2023 Unless otherwise specified, test(s) performed at: [facility], [address] [place] [address], [place] [address] PAYMENT PROCESSOR: Dariel Doyle M.D., Ph.D For any questions, please call customer service at FREQUENCY:MONTHLY Resulting Agency Comment Specimen source: Plasma Sebastian Charles MD LAB BLOOD ORDERABLES Performing Organization Address City/[facility]/ZIP Co de Phone Number [facility] * (ABNORMAL) URINE CLEARANCE (11/03/2023) Urea Nitrogen, [...] MD LAB URINE ORDERABLES Performing Organization Address City/[facility]/ZIP Co de Phone Number [facility] * PATIENT INFORMATION (11/03/2023) Patient Weight 78.8 [facility] Patient Height 171.0 [facility] Amputee Status NO [facility] Amputee Parts NONE [facility] Drain volume, PDF 5,274 [facility] Collection Time, PDF 24.0 [facility] Urine Volume 1,300 [facility] Collection Interval, Ur 24.0 [facility] 11/03/2023 11/03/2023 Narrative [facility] - 11/04/2023 Unless otherwise specified, test(s) performed at: [facility], [address] [place] [address], [place] [address] PAYMENT PROCESSOR: Dariel Doyle M.D., Ph.D For any questions, please call customer service at FREQUENCY:MONTHLY Resulting Agency Comment Specimen source: PD Fluid Sebastian Charles MD LAB BLOOD ORDERABLES [facility] documented in this encounter Visit Diagnoses Not on filedocumented in this encounter Care Teams Aviation Tactical Readiness Officer Relationship Specialty Start Date End Date Harish Silver MD [address] [place] [address] PCP - General 05/17/19 documented as of this encounter
--- OUTSIDE RECORDS SUMMARY | 2023-12-07 10:08 | XMS_ITS | Encounter Summary ---
Author Name Unknown Organization [facility] Address [address] [place] [address] Care Team Providers Care Network Contract Manager Name Role Phone Harish Silver MD Primary Care Provider [phone] Encounter Details Date Type Department Care Team Description 10/02/2023 Treatment [facility] [address] [place] [address] Sebastian Charles MD [address] [place] [address] Social History Tobacco Use Types [...] Dialysis Note - Sebastian Charles MD - 10/02/2023 4:18 PM CST Date: Oct 02, 2023 Patient Name: David Castro : 1940 Chart #: [id number] Sex: M This visit was conducted using [...] with the patient and staff as necessary. SUPERVISOR MONEY ROOM: Sebastian Charles MD LOCATION: [phone] SCHEDULE: No Routine Schedule Subjective Tolerating dialysis well. Telehealth visit done today at request of patient because he has an appointment (having Watchman device placed) on the day that I will be seeing patients at the dialysis unit. I am at [facility] doing this visit. Georges is doing well. No coughing up blood since last visit. PD going well. Wt stable at dry weight. No change in bags he is using. He had a day where he was veering to the L and could not turn to the R but it resolved quickly and has not occurred. His BP is 130 systolic at home. He has no edema. Review of Systems None reported. Exam Respiratory - nl effort Cardiovascular - Regular rate. per RN Gastrointestinal - not distended Edema - No leg edema. that I can see on camera. RN also reports no edema PD catheter exit site - looks excellent with no erythema per dumb waiter operatorchild care associate teacher List Medication Sig Start Date allopurinol 100 [...] made. Treatment and Adequacy Assessment BUN mg/dL 64 (08/28/23) 65 (07/28/23) 64 (07/21/23) CREATININE (MG/DL) IN SER/PLAS mg/dL 4.49 (08/28/23) 4.44 (07/28/23) 4.77 (07/21/23) KT/V, PERITONEAL L/wk 0.56 (07/28/23) 0.60 (05/03/23) 0.55 (01/31/23) KT/V, RESIDUAL L/wk 1.36 (07/28/23) 1.61 (05/03/23) 2.04 (01/31/23) Kt/V is adequate. Continue current prescription. Lowered prescription October 2022 and on 6 days/week now with excellent residual function. Repeat adequacy this month Peritoneal Dialysis Access Assessment Placed on: 07/[address] Kaur No further leaking from PD cath site Anemia Assessment HEMOGLOBIN (G/DL) IN BLOOD g/dL 14.6 (08/28/23) 15.1 (07/21/23) 14.8 (06/23/23) WBC (BLOOD) 1000/mcL 7.04 (08/28/23) 5.88 (07/21/23) 6.22 (06/23/23) IRON SATURATION % 29 (01/26/22) 7 (12/22/21) 12 (12/01/21) FERRITIN ng/mL 57 (06/23/23) 66 (05/31/23) 39 (02/23/23) TRANSFERRIN SAT% % 34 (08/28/23) 25 (07/21/23) 59 (06/23/23) 33 (05/31/23) 50 (05/03/23) Hemoglobin is above goal. Iron Saturation is at goal. Ferritin is below goal. Will adjust SIRISHA and intravenous iron. No SIRISHA with Hgb >11 No iron at this time is needed Nutritional and Metabolic Assessment ALBUMIN (G/DL) g/dL 3.5 (08/28/23) 3.7 (07/21/23) 3.7 (06/23/23) BICARBONATE (CO2) mEq/L 31 (08/28/23) 30 (07/21/23) 28 (06/23/23) POTASSIUM (MMOL/L) IN SER/PLAS mEq/L 3.8 (09/11/23) 3.4 (08/28/23) 4.1 (07/21/23) Sodium mEq/L 141 (08/28/23) 144 (07/21/23) 141 (06/23/23) 25 OH VITAMIN D ng/mL 39.1 (06/23/23) 30.8 (10/07/22) 17.8 (08/24/22) Albumin is below goal. Encourage high biological value protein intake. Oral nutritional supplement program. Potassium is at goal. He is on protein supplement, high protein diet, and albumin remains low but stable. Given protein drink and powder to use Lab re-check today Bone and Mineral Metabolism Assessment CALCIUM mg/dL 8.7 (08/28/23) 8.9 (07/21/23) 8.8 (06/23/23) CALCIUM (MG/DL) CORRECTED FOR ALBUMIN IN SER/PLAS mg/dL 9.1 (08/28/23) 9.1 (07/21/23) 9.0 (06/23/23) CALCIUM PHOSPHORUS PRODUCT, COR 35 (08/28/23) 38 (07/21/23) 38 (06/23/23) PHOSPHATE (MG/DL) IN SER/PLAS mg/dL 3.9 (08/28/23) 4.2 (07/21/23) 4.2 (06/23/23) IPTH pg/mL 341 (05/31/23) 252 (02/23/23) 260 (11/23/22) Corrected calcium is at goal. Phosphorus is at goal. Intact PTH is at goal. Cardiovascular Assessment Blood pressure reviewed and is acceptable. Continue same cardiovascular medications. Estimated dry weight is appropriate. EDW 77 Kg Use 2.5% bags with every 3rd day [...] PD, doing well Continue high protein diet Labs to be drawn today Monitor adequacy every 3 months Watchman device planned for A-fib, doesn't tolerate anti-coagulation due to bleeding issues I asked him to be seen right away if he has veering issue again to rule out TIA or stroke including likely brain MRI. Unclear etiology but quickly resolved Continue to monitor home weight and BP closely. No change in BP medications today. No orthostatic symptoms. Sebastian Charles MD [ Signed And locked electronically On 10/02/2023 at 04:22:48 PM ] Transcribed: Sebastian Charles ( 10/02/2023 ) documented in this encounter Plan of Treatment Not on file documented as of this encounter Visit Diagnoses Not on filedocumented in this encounter Care Teams Network Contract Manager Relationship Specialty Start Date End Date Harish Silver MD [address] [place] [address] PCP - General 05/17/19 documented as of this encounter
--- OUTSIDE RECORDS SUMMARY | 2023-12-07 10:08 | XMS_ITS | Encounter Summary ---
Author Name Unknown Organization [facility] Address [address] [facility] [address] [facility] [address] [place] [address] Care Team Providers Care Marketing Automation Specialist Name Role Phone Harish Silver MD Primary Care Provider [phone] Encounter Details Date Type Department Care Team Description 10/02/2023 Orders Only [facility] [place] [address] [place] [address] Sebastian Charles MD [address] [place] [address] Social History Tobacco Use Types [...] Priority Date/Time Associated Diagnosis Comments HEMATOLOGY Routine 10/02/2023 CHEMISTRY Routine 10/02/2023 CHEMISTRY Routine 10/02/2023 documented in this encounter Results * (ABNORMAL) HEMATOLOGY (10/02/2023) Neutrophils 69.4 40.0 - 75.0 % [facility] Lymphocytes Relative 5.9(L) 19.0 - 48.0 % [facility] Monocytes 8.1 3.0 - 10.0 % [facility] Eosinophils Relative 13.6(H) 0.0 - 7.0 % [facility] Basophils Relative 0.7 0.0 - 1.5 % [facility] JUAN ANTONIO 2.2 0.0 - 4.0 % [facility] WBC 6.25 4.80 - 10.80 1000/mcL [facility] RBC 3.57(L) 4.70 - 6.10 mill/mcL [facility] Hematocrit 38.4(L) 42.0 - 52.0 % [facility] MCV 108(H) 80 - 100 fl [facility] MCH 34.9(H) 27.0 - 31.0 pg [facility] MCHC 32.4 30.0 - 36.0 g/dL [facility] RDW 13.3 11.5 - 14.5 % [facility] Hemoglobin 12.4(L) 14.0 - 18.0 g/dL [facility] Comment: Verified by repeat analysis. Hemoglobin x 3 37.2(L) 42.0 - 54.0 % [facility] 10/02/2023 10/03/2023 11: 43 AM RAIL OPERATOR Narrative [facility] - 10/03/2023 Unless otherwise specified, test(s) performed at: [facility], [address] [place] [address], [place] [address] LIFESTYLE DIRECTOR: Dariel Doyle M.D., Ph.D For any questions, please call customer service at FREQUENCY:MONTHLY Resulting Agency Comment Specimen source: Blood Sebastian Charles MD LAB BLOOD ORDERABLES [facility] * (ABNORMAL) Spectrae Chemistry (10/02/2023) PTH 235(H) 16 - 80 pg/mL [facility] 10/02/2023 10/03/2023 12: 13 PM RAIL OPERATOR Narrative [facility] - 10/03/2023 Unless otherwise specified, test(s) performed at: [facility], [address] [place] [address], [place] [address] LIFESTYLE DIRECTOR: Dariel Doyle M.D., Ph.D For any questions, please call customer service at FREQUENCY:MONTHLY Resulting Agency Comment Specimen source: Plasma Sebastian Charles MD LAB BLOOD ORDERABLES [facility] * (ABNORMAL) Spectrae Chemistry (10/02/2023) BUN 44(H) 6 - 19 mg/dL [facility] Creatinine 4.07(H) 0.60 - 1.30 mg/dL [facility] BUN/Creatinine Ratio 10.8 10.0 - 20.0 [facility] Sodium 140 136 - 145 mEq/L [facility] Potassium 3.9 3.5 - 5.1 mEq/L [facility] Chloride 104 96 - 108 mEq/L [facility] Bicarbonate (CO2) 29 20 - 31 mEq/L [facility] Calcium 8.6(L) 8.7 - 10.4 mg/dL [facility] Comment: Please note change in reference range. Corrected Calcium 9.2 8.7 - 10.4 mg/dL [facility] Comment: Corrected Calcium is not equivalent to measured Ionized Calcium. Phosphorus 3.6 2.6 - 4.5 mg/dL [facility] Calcium Phosphorus Product 31 0 - 54 [facility] Calcium Phosporus Product, Cor 33 0 - 54 [facility] Alkaline Phosphatase 322(H) 40 - 129 U/L [facility] Albumin 3.3(L) 3.5 - 5.2 g/dL [facility] Magnesium 2.0 1.6 - 2.6 mg/dL [facility] Ferritin 25 22 - 322 ng/mL [facility] Iron 57 45 - 160 mcg/dL [facility] UIBC 224 155 - 355 mcg/dL [facility] TIBC 281 185 - 515 mcg/dL [facility] Iron Saturation (TSat) 20 20 - 55 % [facility] 10/02/2023 10/03/2023 11: 13 AM RAIL OPERATOR Narrative [facility] - 10/03/2023 Unless otherwise specified, test(s) performed at: [facility], [address] [place] [address] [place], [place] [address] LIFESTYLE DIRECTOR: Dariel Doyle M.D., Ph.D For any questions, please call customer service at FREQUENCY:MONTHLY Resulting Agency Comment Specimen source: Serum Sebastian Charles MD LAB BLOOD ORDERABLES [facility] documented in this encounter Visit Diagnoses Not on filedocumented in this encounter Care Teams Marketing Automation Specialist Relationship Specialty Start Date End Date Harish Silver MD [address] [place] [address] PCP - General 05/17/19 documented as of this encounter
--- OUTSIDE RECORDS SUMMARY | 2023-12-07 10:08 | XMS_ITS | Encounter Summary ---
Author Name Unknown Organization [facility] Address [address] [facility] [address] [place] [address] Care Team Providers Care Director Dietetics Department Name Role Phone Harish Silver MD Primary Care Provider [phone] Encounter Details Date Type Department Care Team Description 09/11/2023 Orders Only [facility] [place] [address] [facility] [address] [place] [address] Sebastian Charles MD [address] [place] [address] Social History Tobacco Use Types [...] Priority Date/Time Associated Diagnosis Comments CHEMISTRY Routine 09/11/2023 documented in this encounter Results * Spectrae Chemistry (09/11/2023) Potassium 3.8 3.5 - 5.1 mEq/L [facility] 09/11/2023 09/12/2023 7:1 8 PM PARTS CATALOGUER Narrative [facility] - 09/12/2023 Unless otherwise specified, test(s) performed at: [facility], [address] [place] [address], [place] [address] TRANSPORT PILOT: Dariel Doyle M.D., Ph.D For any questions, please call customer service at FREQUENCY:OTHER Resulting Agency Comment Specimen source: Serum Sebastian Charles MD LAB BLOOD ORDERABLES [facility] documented in this encounter Visit Diagnoses Not on filedocumented in this encounter Care Teams Director Dietetics Department Relationship Specialty Start Date End Date Harish Silver MD [address] [place] [place] [address] PCP - General 05/17/19 documented as of this encounter
--- OUTSIDE RECORDS SUMMARY | 2023-12-07 10:08 | XMS_ITS | Encounter Summary ---
Author Name Unknown Organization [facility] Address [address] [place] [address] Care Team Providers Care Commercial Real Estate Manager Name Role Phone Harish Silver MD Primary Care Provider [phone] Encounter Details Date Type Department Care Team Description 09/11/2023 Treatment [facility] [address] [place] [address] Sebastian Charles MD [address] [place] [address] Social History Tobacco Use Types [...] Dialysis Note - Sebastian Charles MD - 09/11/2023 12:19 PM CST Date: Sep 11, 2023 Patient Name: David Castro : 1940 Chart #: [id number] Sex: M This patient was personally seen for a complete visit as part of routine monthly dialysis care. A review of the dialysis treatment, blood pressure, estimated dry weight, and recent lab values was made. These were discussed with the patient and staff as necessary. FRONT WORKER: Sebastian Charles MD LOCATION: [phone] SCHEDULE: No Routine Schedule Subjective Tolerating dialysis well. Georges has had a little more trouble with swallowing again recently, has had small amount of blood in vomit x3 in the last week (happens intermittently with his chronic GI issues/esophageal stenosis). He uses Sucralfate for short period and it improves and it has improved the last couple days now. Hisweight is 2 Kg below dry weight, albumin is down a little. He otherwise feels well. Has Watchman device scheduled to be placed at [place] next month. Review of Systems None reported. Exam Respiratory - Clear to auscultation bilaterally. nl effort Cardiovascular - Regular rate. Regular rhythm. Gastrointestinal - Normal bowel sounds, soft, non-tender. Edema - No leg edema. unchanged PD catheter exit site - looks excellent [...] 28 (06/23/23) POTASSIUM (MMOL/L) IN SER/PLAS mEq/L 3.4 (08/28/23) 4.1 (07/21/23) 3.6 (06/23/23) Sodium mEq/L 141 (08/28/23) 144 (07/21/23) 141 (06/23/23) 25 OH VITAMIN D ng/mL 39.1 (06/23/23) 30.8 (10/07/22) 17.8 (08/24/22) Albumin is below goal. Encourage high biological value protein intake. Oral nutritional supplement program. Potassium is at goal. He is on protein supplement, high protein diet, and albumin remains low but stable. Given protein drink and powder today to supplement protein in his diet K re-check today after low on lab day Bone and Mineral Metabolism Assessment CALCIUM mg/dL [...] dry weight is too high, will decrease. EDW reduce to 77 Kg Use 2.5% bags with every [...] PD, doing well Continue high protein diet Add protein powder and drink per RD today RE-check potassium today Repeat adequacy this month Sebastian Charles MD [ Signed And locked electronically On 09/11/2023 at 12:22:47 PM ] Transcribed: Sebastian Charles ( 09/11/2023 ) documented in this encounter Plan of Treatment Not on file documented as of this encounter Visit Diagnoses Not on filedocumented in this encounter Care Teams Commercial Real Estate Manager Relationship Specialty Start Date End Date Harish Silver MD [address] [place] [address] PCP - General 05/17/19 documented as of this encounter
[2023-12-07] MEDS: LACTATED RINGERS 1000 ML 1,000 ML 100 ML IV (10:20)
[2023-12-07] MEDS: SODIUM CHLORIDE 0.9 % (FLUSH) 10 ML SYRINGE IVF (10:20)
[2023-12-07] MEDS: CEFAZOLIN 2 GM INJ IVP (11:50)
--- NOTE | 2023-12-07 11:53 | W.ANESCHARGE ---
Anesthesia Charges Start Date/Time Anesthesia Start Date: 12/07/23 Anesthesia Start Time: 11:40 Stop Date/Time Anesthesia Stop Date: 12/07/23 Anesthesia Stop Time: 13:16 Summary Extremes of Age - Over 70 or under 1: MDA
[2023-12-07] MEDS: BUPIVACAINE 0.25% 30 ML INJECTION (12:52)
--- NOTE | 2023-12-07 12:57 | P.ORPRC_ITS ---
Procedure Note Date of procedure: 12/07/23 Procedure: PREOPERATIVE DIAGNOSIS: Right knee medial and lateral meniscus tear POSTOPERATIVE DIAGNOSIS: Right knee medial and lateral meniscus tear NAME OF OPERATION: Right knee arthroscopic partial medial and lateral meniscectomy SURGEON: Jesus Mejia MD SHIP ENGINES OPERATING ENGINEER: Uyen Guerrero PA-C ANESTHESIA: General ESTIMATED BLOOD LOSS: 0 mL COMPLICATIONS: None SPECIMENS: None DRAINS: None PREOPERATIVE ANTIBIOTICS: Ancef 2 gram INDICATIONS: The patient is a 83-year-old with a history of right knee medial pain. MRI scan is consistent with a medial and lateral meniscus tear. Despite appropriate nonoperative management, including activity modification, antiinflammatories, [id number] pain medication, bracing, physical therapy, and injections they continue to have pain and disability. Operative intervention was offered. The risks, benefits and expected outcomes were discussed in detail. These included but were not limited to: Infection, bleeding, injury to blood vessel or nerve, venous thromboembolism. All questions were answered to their satisfaction. PROCEDURE: Spinal anesthesia was administered. The patient was placed supine on the operating room table. The right lower extremity was prepped and draped in the usual sterile fashion. The limb was exsanguinated with the Will bandage. The pneumatic tourniquet was inflated to 300 mmHg. A standard anterolateral portal was established. The arthroscope was introduced. The working portal was established anteromedially. Diagnostic arthroscopy was performed with findings as follows: The suprapatellar pouch is normal. Articular surface on the patella is normal. Articular surface on the trochlea is normal. The medial gutter is normal. The medial compartment shows grade 1 change on the medial femoral condyle and medial tibial plateau. The knee is quite tight and does not allow visualization of the posterior horn of the medial meniscus. The the midbody of the medial meniscus has some degenerative fraying of the leading edge, toward the anterior horn. The notch shows the ACL to be intact. The lateral compartment shows normal articular cartilage on the lateral femoral condyle and lateral tibial plateau. The lateral meniscus has some degenerative fraying of leading edge of the midbody. The lateral gutter is normal. The MCL was pie crusted to allow access to the medial compartment. This was quite difficult to achieve. We used the shaver through both portals to debride the midbody and posterior horn of both menisci to a stable base. The entirety of the posterior horn and midbody of the medial meniscus is poor quality tissue. Arthroscopic instruments were removed, the portal sites were Steri-Stripped closed, the knee was infiltrated with 30 mL of 0.25% Marcaine without epinephrine. A dry dressing was applied, the tourniquet was released. Sponge and needle counts were correct x 2. The patient tolerated the procedure well. There were no apparent complications. They were carefully transferred to the hospital bed and taken to the postanesthesia care unit in satisfactory condition. PLAN: The patient will be discharged to home. They may weightbear as tolerates. Range of motion will be unrestricted. They will follow up in the office next week for a wound check.
--- NOTE | 2023-12-07 13:16 | W.ANESCHARGE ---
Anesthesia Charges Start Date/Time Anesthesia Start Date: 12/07/23 Anesthesia Start Time: 11:40 Stop Date/Time Anesthesia Stop Date: 12/07/23 Anesthesia Stop Time: 13:16
== END 2023-12-07 14:47 | disposition home or self-care (01) ==
PROVIDERS: PCP Family Medicine; Visit Provider Orthopaedic Surgery
PROC: (CPT 29870; principal; 2023-12-07 11:30)
DX: M23.261 Derangement of other lateral meniscus due to old tear or injury, right knee (principal); M23.211 Derangement of anterior horn of medial meniscus due to old tear or injury, right knee
CPT/HCPCS: 29880; 01400; 99100; J0330; J0665; J0690; J1100; J2371; J2405; J2704; J2710; J3010; J7120

== ENCOUNTER 2024-01-10 09:45 | Outpatient (RCR) | payer MEDICARE, OTHER, SELFPAY ==
--- NOTE | 2023-12-18 09:16 | PT.OPEX ---
PT [facility] Outpatient Eval PT [facility] Outpatient Eval Start: 12/18/23 07:03 Freq: Status: Active Protocol: Document 12/18/23 07:03 MLS (Rec: 12/18/23 09:15 MLS [id number]) E-signed By Jaimie Fallon DPT Physical Therapy Outpatient Evaluation Insurance Information Recert Due Date 03/16/24 Insurance Name Medicare B,[facility] Medical Diagnosis Z98.890 other postprocedural states s/p right knee arthroscopic partial medial and lateral meniscectomy 12/07/23 Treating Diagnosis right knee pain Right LE weakness Referring MD Chasidy Ware, PADejuanC Subjective Subjective Patient is an 83 year old male who presents to physical therapy s/p right knee arthroscopic partial medial and lateral meniscectomy on . He states that the procedure went well, and he is feeling pretty good. He states that he is having some pain on the inside bone in the knee. He walked about 2.5 miles this morning. He states that he walks 5 - 10 miles per day. Aggravating factors include: pants rubbing on the inside of his knee. Significant past medical history includes heart condition (no pacemaker), dialysis for kidneys, high blood pressure (controlled), brain surgery (2001) metal plate put in, and lumbar fusion 10-15 years ago. Patient would like to achieve get a little stronger through physical therapy sessions. Pain Comments Today: 1-2/10 on a 0-10 pain scale with 10 = extreme pain At its worst: 1-2/10 At its best: 1-2/10 Current Work Status Retired Occupation Previously worked for [employer] Objective Other/Pertinent Objective GAIT/FUNCTIONAL MOBILITY Single leg stance: 5 seconds, no increase in pain Squat: no pain KNEE ROM Left: Grossly tested WNL Right: Extension/Flexion: 0-105 HIP ROM Grossly tested WNL LLE MMT: Hip flexion: R 4/5 L 4/5 Hip abduction: R 4/5 L 4/5 Hip extension: R 4/5 L 4/5 Knee flexion: R 4+/5 L 4+/5 Knee extension: R 4/5 L 4/5 JOINT MOBILITY/PALPATION Tenderness with palpation of medial joint line TX: Access Code: [email or web address] URL: [email or web address] Date: 12/18/2023 Prepared by: Jaimie Fallon Exercises - Supine Quadricep Sets - 1 x daily - 7 x weekly - 3 sets - 10 reps - Supine Heel Slide - 1 x daily - 7 x weekly - 3 sets - 10 reps - Active Straight Leg Raise with Quad Set - 1 x daily - 7 x weekly - 3 sets - 10 reps Functional Test Performed & Score 77/80 A score increase of 6 points shows a significant improvement in lower extremity function. Assessment Assessment/Impression Pt is a 83 year old male who presents with concerns of right knee pain s/p right knee arthroscopic partial medial and lateral meniscectomy on . Patient also has notable objective findings tenderness to palpation, and decreased strength which are also likely contributing to the problem. Patient is a good candidate for skilled therapy to target deficits described above. Skilled PT intervention is necessary for use of therapeutic exercise manual therapy, neuromuscular re- education, gait training, and therapeutic activity. Functional impairments include difficulty with: standing, walking, driving, exercising and ADLs. See appropriate sections of PT eval for complete list of goals and POC . D/C plan and criteria is for pt to achieve the goals as listed below or until max rehab potential is met. Pt was agreeable with plan of care and goals established. Primary Functional Limitations standing walking driving exercising ADLs Plan of Care Rehabilitation Potential Good Physical Therapy Goals Within 10-12 weeks: 1.Pt will demonstrate independence in performance of home exercise program with the use of video and/or handouts in order to optimize functional mobility and reduce risk for re-injury. 2.Pt will demonstrate consistent HEP compliance to ensure progress in reaching established goals during course of care. 3.Patient will be able to drive for up to one hour without pain. 4.Patient will report pain levels <2/10 with all activities in order to improve functional mobility at home, work and during functional leisure activities. 5.Patient is able to sleep without waking more than one time due to pain in a 6-8 hour time frame. 6.Patient will be able to walk up to two miles without pain. 7.Pt will be able to ascend/ descend 1 flight of stairs in order to perform ADLs pain free. Coordination/Communication With Referral Source Treatment Plan/Direct Interventions Gait Training,Joint Mobilization,Manual Therapy, Neuromuscular Re-ed, Therapeutic Activities, Therapeutic Exercises Patient Will Be Discharged From Therapy Independently Progressing Evaluation Billing Untimed Code Treatment Minutes 30 Complexity Low Certification Information Physician Comment/Change : Physician NPI Number #
== END 2024-03-25 09:14 | disposition home or self-care (01) ==
PROVIDERS: PCP Family Medicine; Visit Provider Physician Assistant
DX: Z98.890 Other specified postprocedural states (principal); M25.561 Pain in right knee; R29.898 Other symptoms and signs involving the musculoskeletal system; Z51.89 Encounter for other specified aftercare
CPT/HCPCS: 97110; 97161

== ENCOUNTER 2024-02-23 07:51 | Outpatient (CLI) | payer MEDICARE, OTHER, SELFPAY ==
--- OUTSIDE RECORDS SUMMARY | 2024-02-23 07:53 | XMS_ITS | Clinical Summary ---
Author Organization [facility] Address [place], [place] [address] Care Team Providers Care Basketball Referee Name Role Phone Kush Doran MD Primary Care Provider Viki Abarca MD Unavailable [phone] Allergies Active Allergy Reactions Criticality Noted Date [...] End Date Status calcitrioL (ROCALTROL) 0.25 mcg capsuleIndications:Laura hair renal hyperparathyroidism (HC) Take three times a week on MW's 36 capsule. 3 2 Active Dialyvite 100-1 [...] 3 Active pantoprazole (PROTONIX) 40 mg delayed-release tabletIndications:Gastro intestinal hemorrhage with hematemesis TAKE 1 TABLET BY MOUTH TWICE DAILY BEFORE MEALS 200 Tablet 2 3 Active torsemide (DEMADEX) 20 mg tabletIndications:CKD (chronic kidney disease) stage 4, GFR 15-29 ml/min (HC) TAKE 1 TABLET BY MOUTH ONCE DAILY 100 Tablet 2 3 Active allopurinoL (ZYLOPRIM) 100 mg tabletIndications:Gout, unspecified cause, unspecified chronicity, unspecified site TAKE 1 TABLET BY MOUTH ONCE DAILY 100 Tablet 2 4 Active amoxicillin (AMOXIL) 500 mg capsuleIndications:Need for SBE (subacute bacterial endocarditis) prophylaxis TAKE 4 CAPSULES BY MOUTH 1 HOUR BEFORE DENTAL APPOINTMENT 12 Capsule 1 4 Active apixaban (ELIQUIS) 2.5 mg tabletIndications:Paroxy smal atrial fibrillation (HC) Take 1 Tablet (2.5 mg) by mouth two times daily. 60 Tablet 4 Active metoprolol tartrate (LOPRESSOR) 25 mg tabletIndications:Cardio vascular symptoms Take 0.5 Tablets (12.5 mg) by mouth two times daily. 90 Tablet 3 4 Active CPAPIndications:ELENI (obstructive sleep apnea) CPAP machine for home use at pressure 14cmw, CPAP mask- mask of choice, fit to comfort one per 3 months 1 Each 4 Active Hospital, Clinic, or Other Facility Administered Medication [...] Cx neg ative. 12/14/2021 Achalasia; [facility] id[facility] 04/29/21. No further procedural [...] Encounters Date Type Department Care Team Description 02/20/2024 Refill [facility] [address] [place] [address] Sebastian Charles MD Refill Request (Pantoprazole) 01/01/2024 8:00 AM CDT Office Visit [facility] [address] [place] [address] Florian Villalobos MD Sleep Follow-up 01/01/2024 Travel 12/01/2023 1:15 PM CDT Preop Visit [facility] [address] [place] [address] Kush Doran MD Preoperative Exam (DOS: 12/07/2023, right knee surgery, Dr. Mejia, [facility]) 12/01/2023 Travel 11/27/2023 Refill [facility] [address] [place] [address] Kush Doran MD Refill Request (Metoprolol Tart Tab ) from Last 3 Months Immunizations Name [...] Former Cigarettes 0.5 7 1 960 - 1966 Smokeless Tobacco: Never Tobacco Cessation:Counseling Given: No [...] Sign Reading Time Taken Comments Blood Pressure 110/66 01/01/2024 8:00 AM CDT Pulse 71 01/01/2024 8:00 AM CDT Temperature 36.7 ??C (98 ??F) 09/04/2023 11:28 AM MAT PACKER Respiratory Rate 14 04/13/2023 4:03 PM CDT Oxygen Saturation 99% 01/01/2024 8:00 AM CDT Inhaled Oxygen Concentration - - Weight 80 kg (176 lb 6.4 oz) 01/01/2024 8:00 AM CDT Height 172.7 cm (5' 8) 01/01/2024 8:00 AM CDT Body Mass Index 26.82 01/01/2024 8:00 AM CDT Plan of Treatment Upcoming Encounters Date Type Department Care Team (Late st Contact Info) Description 04/02/2024 8:30 AM CDT Office Visit [facility] [address] [place] [address] Florian Villalobos MD [address] [place] [address] Health Maintenance Due Date Last Done Comments [...] wt on same day) for age 18+ 12/31/2024 01/01/2024, 12/01/2023, 08/15/2023, Additional history exists Tdap Completed 07/10/2014 Pneumococcal series for age 65+ Completed 5, 02/02/2009 Zoster (shingles) series for age 50+ Completed 02/14/2019, 12/11/2018, 04/08/2010 Medical Devices Implanted Type Area [place] Device Identifier Shelf Expiration Date Model / Serial / Lot Cath Dial Adlt Std Merit Classic Peritoneal Perc Implanted:Qty: 1 on 08/16/2021 by Clayton Diaz MD at [facility] N/A: Abdomen 05/14/2024 [id number] / / Description:CATH DIAL ADLT S TD MERIT CLASSIC PERITONEAL PERC Procedures Procedure Name Priority Date/Time Associated Diagnosis Comments CBC W PLT NO DIFF Routine 12/01/2023 1:5 7 PM CDT Preop examination BASIC METABOLIC PANEL Routine 12/01/2023 1:57 PM CDT Preop examination from Last 3 Months Results * (ABNORMAL) CBC W PLT NO DIFF (12/01/2023 1:57 PM CDT) [facility] WHITE BLOOD COUNT 5.8 4.5 - 11.0 thou/cu mm 12/01/2023 2:10 PM CDT [facility] RED BLOOD COUNT 3.66(L) 4.30 - 5.90 mil/cu mm 12/01/2023 2:10 PM CDT [facility] HEMOGLOBIN 12.2(L) 13.5 - 17.5 g/dL 12/01/2023 2:10 PM CDT [facility] HEMATOCRIT 37.2 37.0 - 53.0 % 12/01/2023 2:10 PM CDT [facility] MCV 102(H) 80 - 100 fL 12/01/2023 2:10 PM CDT [facility] MCH 33.3 26.0 - 34.0 pg 12/01/2023 2:10 PM CDT [facility] MCHC 32.8 32.0 - 36.0 g/dL 12/01/2023 2:10 PM CDT [facility] RDW 13.1 11.5 - 15.5 % 12/01/2023 2:10 PM CDT [facility] PLATELET COUNT 140 140 - 440 thou/cu mm 12/01/2023 2:10 PM CDT [facility] MPV 9.0 6.5 - 11.0 fL 12/01/2023 2:10 PM CDT [facility] Blood BLOOD SPECIMEN / Unknown Venipuncture / Unknown 12/01/2023 1:57 PM CDT 12/01/2023 1:58 PM CDT Kush Doran MD HEMATOLOGY Performing Organization Address City/State/[facility] Co de Phone Number [facility] [address] [place] [address], * (ABNORMAL) BASIC METABOLIC PANEL (12/01/2023 1:57 PM CDT) SODIUM 143 136 - 145 mmol/L 12/01/2023 9:00 PM CDT [facility] POTASSIUM 3.5 3.5 - 5.1 mmol/L 12/01/2023 9:00 PM CDT [facility] CHLORIDE 105 98 - 107 mmol/L 12/01/2023 9:00 PM CDT [facility] CO2,TOTAL 27 22 - 29 mmol/L 12/01/2023 9:00 PM CDT [facility] ANION GAP 11 5 - 18 12/01/2023 9:00 PM T [facility] GLUCOSE 106(H) 70 - 99 mg/dL 12/01/2023 9:00 PM T [facility] CALCIUM 8.8 8.8 - 10.2 mg/dL 12/01/2023 9:00 PM T [facility] BUN 45(H) 8 - 23 mg/dL 12/01/2023 9:00 PM T [facility] CREATININE 4.05(H) 0.70 - 1.20 mg/dL 12/01/2023 9:00 PM T [facility] BUN/CREAT RATIO 11 10 - 20 4 9:00 PM T [facility] eGFR 14(L) >90 mL/min/1.7 3m2 12/01/2023 9:00 PM T [facility] Comment:As of 2021, eG FR [...] 1:58 PM CDT Kush Doran MD [facility] [address] [place] [address], from Last 3 Months Advance Directives Documents on File Type Date Recorded Patient Academic Support Director Expl anation Healthcare Directive 05/16/2018 3:06 PM HE [employer]THCARE DIRECTIVE, [employer], 09/14/2005 * Full Code (Latest [...] Comments Code Status Discussion: Discussed Care Teams Basketball Referee Relationship Specialty Start Date End Date Kush Doran MD [address] [place] [address] PCP - General Family Practice 01/31/17 Viki Abarca MD [address] [place] [id number] Gastroenterology 10/13/20
--- OUTSIDE RECORDS SUMMARY | 2024-02-23 07:53 | XMS_ITS | Continuity of Care Document ---
Author Name [facility] Organization [facility] Care Team Providers Care Marketing Editor Name Role Phone [facility] Unavailable Unavailable Problems Combined list of problems from Department of Defense and [facility] Affairs facilities. It does not include entries that were removed or entered in error. 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 Mik Doran, [place] [address]. [phone] . [facility] Congestive heart failure Active Condition [facility] Dysphagia Active Condition [facility] Empyema Active Condition [facility] End-stage renal disease Active Condition [facility] Esophageal varices Active [place] [facility] Ex-tobacco user Active [facility] Gout ([facility] [id number]) [place] Condition [place] [facility] Hemoptysis Active Condition [facility] Hiatal hernia Active [facility] History of polyp of colon Active Condition [facility] Impaired hearing Active Condition [facility] Leukopenia Active Condition [facility] Long-term current use of anticoagulant Active Condition Jun 10, 2022 Entered By: MARILYN ROBINS Comment: Indication: AF. [facility] Malnutrition [facility] Osteopenia Active Condition Jun 10 Entered By: MARILYN ROBINS Comment: 05.31.2022 DXA. [facility] Stricture of esophagus Active Condition [facility] Thrombocytopenia [facility] Diagnosis: ICD-10-CM Z01.00 Encounter for exam of eyes and vision w/o abnormal findings Active Diagnosis [facility] Medications Combined list of outpatient medications from Department of Defense and Veterans Affairs facilities.Medications provided include 1) outpatient medications from the last 15 months, and 2) patient-reported medications. Medication Details Route Status Patient Instructions Prescription Expires Prescription Number Last Dispense Date Ordering Provider Order Date Order Qty Source ALLOPURINOL 100MG TAB ALLOPURI NOL 100MG TAB Non-VA TAKE ONE TABLET BY MOUTH EVERY DAY Jun 10, 2022 Non-VA Document ed by: ELENITA ROBINS Document ed at: [facility] ORAL ACTIVE ELENITA ROBINS 2021 [facility] CALCITRIOL 0.25MCG CAP CALCITRI OL 0.25MCG CAP Non-VA TAKE 1 CAPSULE BY MOUTH Jun 10, 2022 Non-VA Document ed by: ELENITA ROBINS Document ed at: [facility] ORAL ACTIVE ELENITA ROBINS 2021 [facility] DIALYVITE TAB DIALYVIT E TAB Non-VA TAKE ONE TABLET BY MOUTH AT BEDTIME Jun 10, 2022 Non-VA Document ed by: ELENITA ROBINS Document ed at: [facility] ORAL ACTIVE ELENITA ROBINS 2021 [facility] DOCUSATE NA 100MG CAP DOCUSATE NA 100MG CAP Non-VA TAKE 1 CAPSULE BY MOUTH PRN Jun 10, 2022 Non-VA Document ed by: ELENITA ROBINS Document ed at: [facility] ORAL ACTIVE ELENITA ROBINS 2021 [facility] METOPROLOL TARTRATE 50MG TAB METOPROL OL TARTRATE 50MG TAB Non-VA TAKE ONE-HALF TABLET BY MOUTH TWICE A DAY Jun 10, 2022 Non-VA Document ed by: ELENITA ROBINS Document ed at: [facility] ORAL ACTIVE ELENITA ROBINS 2021 [facility] ONDANSETRON HCL 4MG TAB ONDANSET TED HCL 4MG TAB Non-VA TAKE ONE TABLET BY MOUTH EVERY 6 HOURS NEEDED Jun 10, 2022 Non-VA Document ed by: ELENITA ROBINS Document ed at: [facility] ORAL ACTIVE ELENITA ROBINS 2021 [facility] PANTOPRAZOL E NA 40MG TAB,EC PANTOPRA ZOLE NA 40MG TAB,EC Non-VA TAKE ONE TABLET BY MOUTH EVERY DAY Jun 10, 2022 Non-VA Document ed by: ELENITA ROBINS Document ed at: [facility] ORAL ACTIVE ELENITA ROBINS 2021 [facility] SUCRALFATE 500MG/5ML SUSP,ORAL SUCRALFA TE 500MG/5M L SUSP,ORA L Non-VA TAKE 2 TEASPOON SFUL BY MOUTH EVERY 6 HOURS Jun 10, 2022 Non-VA Document ed by: ELENITA ROBINS Document ed at: [facility] ORAL ACTIVE ELENITA ROBINS 2021 [facility] TORSEMIDE 20MG TAB TORSEMID E 20MG TAB Non-VA TAKE ONE TABLET BY MOUTH EVERY DAY Jun 10, 2022 Non-VA Document ed by: ELENITA ROBISN Document ed at: [facility] ORAL ACTIVE ELENITA ROBINS 2021 [facility] Allergies, Adverse Reactions, Alerts Combined list of allergies from Department of [facility] and [facility] facilities. It does not include entries that were removed or entered in error. Substance Category Reaction Severity Reaction type Status Date Reported Comments Source CARBAMAZEPINE Propensity to adverse reactions to drug (finding) active 2 [facility] FUROSEMIDE Propensity to adverse reactions to drug (finding) active 2 [facility] PROPAFENONE Propensity to adverse reactions to drug (finding) active 2 [facility] SUCRALFATE Propensity to adverse reactions to drug (finding) active 2 [facility] Immunizations Combined list of available immunizations from the Department of [facility] and [facility] facilities. Immunization Series Date Given Administered By Site Reaction Lot Number CVX Code Drug Drug Regulatory Affairs Specialist Status Comments Source COVID-19 (UTOPY), MRNA, LNP-S, PF, 30 MCG/0.3 ML DOSE 2 2020 208 complet ed PFR; [id number]; 1 [facility] COVID-19 (PFIZER), MRNA, LNP-S, PF, 30 MCG/0.3 ML DOSE 1 2020 208 complet ed PFR; [id number]; 1 [facility] Encounters Combined list of: 1) Encounters from Department of Veterans Affairs facilities going back up to thelast 18 months. 2) Encounters from the Department of [facility] facilities going back up to 280 months. Location Location Details Encounter Type Encounter Number Reason For Visit Attending Provider ADM Date DC Date Status Disposition Source [facility] IMG RTA DETCJ/MNTR DS STAFF [id number] Diagnos is: ICD-10- CM Z01.00 Encount er for exam of eyes and vision w/o abnorma l finding s
Cinthya HENDERSON E 04/12 [facility] [place] [facility] Outpatient Encounter [id number] Diagnos is: ICD-10- CM Z01.00 Encount er for exam of eyes and vision w/o abnorma l finding s
ALEX LUCERO 04/13 [facility] [place] [facility] Outpatient Encounter [id number] 04/13 [facility] [place] [facility] Outpatient Encounter [id number] Eulogio BRYAN 05/02 [facility] [place] [facility] Outpatient Encounter [id number] 05/03 [facility] [place] [facility] Outpatient Encounter [id number] Lyric SIMS 05/03 [facility] [place] [facility] Outpatient Encounter [id number] [facility] [place] [facility] Outpatient Encounter [id number] 11/06 [facility] Social History Combined list of available smoking, tobacco, and other social history from Department of Defense and [facility] facilities. Social History Type Response Date Comment Sourc e This section is an empty social history section. DoD Plan of Care List of future care activities from Department of [facility] facilities. Additional future care activities may be listed in the Assessment and Plan section. Date/Time Care Activity Care Activity Detail Facili ty 04/11/2024 AMBULATORY - REHAB MEDICINE AMBULATORY - REHAB MEDICINE [facility]
--- OUTSIDE RECORDS SUMMARY | 2024-02-23 07:53 | XMS_ITS | Encounter Summary ---
Author Name [facility] Organization [facility] Address [address] [place] [address] Support Name Relationship Address Phone SHAYY CARMONA Next of Kin [address] [place] [address] SHAYY CARMONA Emergency Contact [address] [place] [address] Insurance Providers: All historical and [...] PART A Nov 19, 2006 PART A [id number] [phone] Sandhya CARMONA PATIENT MEDICARE (WNR) MEDICARE (M) PART B Nov 19, 2006 PART B [id number] [phone] Sandhya CARMONA PATIENT Selected Encounter This section includes the information on record at [place] for the Encounter. Date/Time Encounter Type Encounter Description Reason Provider Source Apr 12, 2023 09:00 AM [facility] RTA DETCJ/MNTR DS STAFF OPHTHALMOLOGY ICD-10-CM Z01.00 Encounter for exam of eyes and vision w/o abnormal findings GABO HENDERSON Nell Encounter Template Text not used by [place] Assessments - Encounter Diagnoses This section includes the primary and secondary diagnoses documented for the Encounter. Date/Time Primary/Secondary Diagnosis Diagnosis Name Provider Source Apr 12, 2023 09:45 AM PRIMARY Encounter for exam of eyes and vision w/o abnormal findings GABO HENDERSON [facility] Plan of Treatment: Future Appointments (+ 6 [...] [place] treatment facilities. Appointment Date/Time Appointment Type Appointme nt Facility Name May 31, 2023 11:11 AM AMBULATORY - NONE [facility] Encounter Notes: All associated encounter notes This section contains the clinical notes associated to the Encounter. Date/Time Encounter Note(s) Provider Source Apr 12, 2023 09:09 AM TELEHEALTH NOTE: LOCAL TITLE: EYE TECS MARBLEIZING MACHINE TENDER STANDARD TITLE: TELEHEALTH NOTE DATE OF NOTE: APR 12, 2023@09:09 ENTRY DATE: APR 12, 2023@09:09:41 AUTHOR: GABO HENDERSON COSIGNER: URGENCY: STATUS: COMPLETED [facility] Sweep Press Operator Note REBECCA CARMONA [id number] Telehealth Consent and Patient Identification Verification: Verified patient identity with 2 separate identifiers prior to the beginning of the visit: Yes Patient was informed that their information and images will be uploaded securely to the [place] computer system and sent to be remotely [...] Location of last eye exam: Outside of [place] System [facility]ECS HISTORY & REVIEW OF SYSTEMS [...] REFRACTION AND VISION: Wearing Rx (WRx): OD: -1.00+1.28w763 +2.50 OS: -1.00+1.00x10 +2.50 Current Style: PAL [...] C:D (Cup-to-Disc); CIC (Care In The Community); HEALTH AND SAFETY TECHNICIAN (Cyclophotocoagulation); CSME (Clinically Significant Macular Edema); DFE [...] Clinic); scVA (Visual Acuity Without Correction/Glasses); CASSIDY (Vietnamese Interactive Threshold Algorithm); TID (Three Times Daily); UV (Ultraviolet); VA (Visual Acuity); WRx (Prescription glasses currently worn); WRx VA (Visual Acuity With Prescription Glasses); YAG (Yttrium Aluminum [place]) /paola/ GABO HENDERSON OPHTHALMOLOGY RON MARBLEIZING MACHINE TENDER Signed: 04/12/2023 09:45 GABO HENDERSON [facility]
--- OUTSIDE RECORDS SUMMARY | 2024-02-23 07:54 | XMS_ITS | Encounter Summary ---
Author Organization [facility] Address [address] [place] [address] Care Team Providers Care Combatant Diver Officer Name Role Phone Harish Silver MD Primary Care Provider [phone] Encounter Details Date Type Department Care Team (Late st Contact Info) Description 02/14/2024 Orders Only [facility] [address] [place] [address] Sebastian Charles MD [address] [place] [address] Social History Tobacco Use Types [...] Date/Time Associated Diagnosis Comments URINE CLEARANCE Routine 02/14/2024 PDF CHEMISTRY Routine 02/14/2024 PD ADEQUACY Routine 02/14/2024 PD ADEQUACY Routine 02/14/2024 PATIENT INFORMATION Routine 02/14/2024 PATIENT INFORMATION Routine 02/14/2024 PATIENT INFORMATION Routine 02/14/2024 CHEMISTRY Routine 02/14/2024 documented in this encounter Results * PD ADEQUACY (02/14/2024) Kt/V, Residual 2.42 [facility] 02/14/2024 02/15/2024 9:5 3 AM CDT Narrative [facility] - 02/15/2024 Unless otherwise specified, test(s) performed at: [facility], [address] [place] [address], [place] [address] PUBLIC SPEAKING INSTRUCTOR: Dariel Doyle M.D., Ph.D For any questions, please call customer service at FREQUENCY:OTHER Resulting Agency Comment Specimen source: Urine Sebatsian Charles MD LAB BODY FLUIDS AND STOOLS ORDERABLES Performing Organization Address City/[facility] Co de Phone Number [facility] See order comments or contact performing lab Unknown, [place] * PD ADEQUACY (02/14/2024) Pathologist [facility] Kt/V, Total 3.09 [facility] Comment: KDOQI Guidelines recommend weekly Kt/V of >=1.7 for adults. Kt/V, Peritoneal 0.67 [facility] PNA, Normalized 1.15 g/kg/day [facility] PNA 86 g/day [facility] 02/14/2024 02/15/2024 9:3 6 AM CDT Narrative Resulting Agency Comment Specimen source: PD Fluid Sebastian Charles MD LAB BODY FLUIDS AND STOOLS ORDERABLES Performing Organization Address City/[facility] Co de Phone Number [facility] See order comments or contact performing lab Unknown, [place] * PATIENT INFORMATION (02/14/2024) Urea Volume Distribution (Zoraida) 43.3 L [facility] 02/14/2024 02/15/2024 9:3 6 AM CDT Narrative [facility] - 02/15/2024 Unless otherwise specified, test(s) performed at: [facility], [address] [place] [address], [place] [address] PUBLIC SPEAKING INSTRUCTOR: Dariel Doyle M.D., Ph.D For any questions, please call customer service at FREQUENCY:OTHER Resulting Agency Comment Specimen source: PD Fluid Sebastian Charles MD LAB BLOOD ORDERABLES Performing Organization Address [facility] Co de Phone Number [facility] See order comments or contact performing lab Unknown, [place] * PATIENT INFORMATION (02/14/2024) Patient BSA 1.93 sq. M. [facility] Comment: Normalized values are calculated using the patient's actual BSA and normalized to the average BSA of 1.73m2. 02/14/2024 02/15/2024 7:1 3 AM CDT Narrative [facility] - 02/15/2024 Unless otherwise specified, test(s) performed at: [facility], [address] [place] [address], [place] [address] PUBLIC SPEAKING INSTRUCTOR: Dariel Doyle M.D., Ph.D For any questions, please call customer service at FREQUENCY:OTHER Resulting Agency Comment Specimen source: PD Fluid Sebastian Charles MD LAB BLOOD ORDERABLES Performing Organization Address [facility] de Phone Number [facility] See order comments or contact performing lab Unknown, [place] * PATIENT INFORMATION (02/14/2024) Patient Weight 81.0 [facility] Patient Height 171.0 [facility] Drain volume, PDF 5,408 [facility] Collection Time, PDF 24.0 [facility] Urine Volume 1,400 [facility] Collection Interval, Ur 24.0 [facility] 02/14/2024 02/14/2024 Narrative [facility] - 02/15/2024 Unless otherwise specified, test(s) performed at: [facility], [address] [place] [address], [place] [address] PUBLIC SPEAKING INSTRUCTOR: Dariel Doyle M.D., Ph.D For any questions, please call customer service at FREQUENCY:OTHER Resulting Agency Comment Specimen source: PD Fluid Sebastian Charles MD LAB BLOOD ORDERABLES Performing Organization Address [facility] de Phone Number [facility] See order comments or contact performing lab Unknown, [place] * (ABNORMAL) URINE CLEARANCE (02/14/2024) Urea Nitrogen, Urine Timed 526 mg/dL [facility] Urea Nitrogen, Urine 24 Hr 7.4(L) 12.0 - 20.0 g/24 hr [facility] Urea Clear, Urine Norm 9.4(L) 64.0 - 99.0 mL/min [facility] Urea Clearance, Urine 10.4(L) 64.0 - 99.0 mL/min [facility] Urea Clear, Urine Norm Wkly 105 L/wk [facility] 02/14/2024 02/15/2024 9:5 3 AM CDT Narrative Resulting Agency Comment Specimen source: Urine Sebastian Charles MD LAB URINE ORDERABLES Performing Organization Address [facility] de Phone Number [facility] See order comments or contact performing lab Unknown, [place] * PDF CHEMISTRY (02/14/2024) Urea Nitrogen, PDF Timed 38 mg/dL [facility] Comment: A reference range for this assay has not been established for body fluids. If blood results are available for this analyte, results may be interpreted in comparison to those results. Urea Nitrogen, PDF 24 Hr 2,055.0 mg/24 hr [facility] Urea Clearance, PD Fluid 2.9 mL/min [facility] Urea Clearance, PDF Norm 2.6 mL/min [facility] Urea Clear, Tot Norm Wkly 134 L/wk [facility] Urea Clear, PDF Norm Wkly 29 L/wk [facility] 02/14/2024 02/15/2024 9:3 6 AM CDT Narrative Resulting Agency Comment Specimen source: PD Fluid Sebastian Charles MD LAB BODY FLUIDS AND STOOLS ORDERABLES Performing Organization Address [facility] Co de Phone Number [facility] See order comments or contact performing lab Unknown, [place] * (ABNORMAL) [facility] (02/14/2024) BUN 49(H) 6 - 19 mg/dL [facility] 02/14/2024 02/15/2024 7:1 3 AM CDT Narrative [facility] - 02/15/2024 Unless otherwise specified, test(s) performed at: [facility], [address] [place] [address], [place] [address] PUBLIC SPEAKING INSTRUCTOR: Dariel Doyle M.D., Ph.D For any questions, please call customer service at FREQUENCY:MONTHLY Resulting Agency Comment Specimen source: Serum Sebastian Charles MD LAB BLOOD ORDERABLES [facility] See order comments or contact performing lab Unknown, [place] documented in this encounter Visit Diagnoses Not on filedocumented in this encounter Care Teams Combatant Diver Officer Relationship Specialty Start Date End Date Harish Silver MD [address] [place] [address] PCP - General 05/17/19 documented as of this encounter
--- OUTSIDE RECORDS SUMMARY | 2024-02-23 07:54 | XMS_ITS | Encounter Summary ---
Author Organization [facility] [place] [place] Address [address] [place] [address] Care Team Providers Care Converter Skimmer Name Role Phone Harish Silver MD Primary Care Provider [phone] Encounter Details Date Type Department Care Team (Late st Contact Info) Description 02/14/2024 Treatment [facility] [address] [place] [address] Sebastian Charles MD [address] [place] [address] Social History Tobacco Use Types [...] Dialysis Note - Sebastian Charles MD - 02/14/2024 9:32 AM CDT Date: Feb 14, 2024 Patient Name: David Castro : 1940 Chart #: [id number] Sex: M This patient was personally seen for a complete visit as part of routine monthly dialysis care. A review of the dialysis treatment, blood pressure, estimated dry weight, and recent lab values was made. These were discussed with the patient and staff as necessary. AIR QUALITY CHEMIST: Sebastian Charles MD LOCATION: [place] [phone] SCHEDULE: No Routine Schedule Subjective Tolerating dialysis well. 02/14/24: HE is doing really well. His weight is up a little and using all 2.5% right now to get back to dry weight. He is eating better as everything is staying down right now very well. His albumin is improved. No machine issues, PD running smoothly overnight. He has no new symptoms. Review of Systems None reported. Exam Respiratory [...] capsule by mouth three times a week docusate sodium 100 mg tablet Take 1 tablet by mouth twice a day as needed. - for constipation Eliquis (apixaban) 2.5 mg tablet Take 1 tablet by mouth twice a day famotidine 20 mg tablet Take 1 tablet [...] made. Treatment and Adequacy Assessment BUN mg/dL 58 (01/31/24) 48 (12/25/23) 44 (12/04/23) CREATININE (MG/DL) IN SER/PLAS mg/dL 4.48 (01/31/24) 4.29 (12/25/23) 3.84 (12/04/23) KT/V, PERITONEAL L/wk 0.68 (11/03/23) 0.56 (07/28/23) 0.60 (05/03/23) KT/V, RESIDUAL L/wk 2.06 (11/03/23) 1.36 (07/28/23) 1.61 (05/03/23) Kt/V is adequate. Continue current prescription. Lowered prescription October 2022 and on 6 days/week now with excellent residual function. residual function higher than prior. No change to prescription. Adequacy today. I gave him persmission to take two nights off if he wants to travel for a weekend somewhere as he expressed interest in doing this (trip to [place] to visit family) Peritoneal Dialysis Access Assessment Placed on: 07/[address] Kaur No further leaking from PD cath site Anemia Assessment HEMOGLOBIN (G/DL) IN BLOOD g/dL 11.6 (01/31/24) 12.2 (12/25/23) 12.1 (12/04/23) PLATELETS 1000/mcL 189 (01/31/24) 157 (12/25/23) 127 (12/04/23) WBC (BLOOD) 1000/mcL 5.02 (01/31/24) 4.43 (12/25/23) 4.85 (12/04/23) IRON SATURATION % 29 (01/26/22) 7 (12/22/21) 12 (12/01/21) FERRITIN ng/mL 24 (12/25/23) 25 (10/02/23) 57 (06/23/23) TRANSFERRIN SAT% % 10 (01/31/24) 10 (12/25/23) 16 (12/04/23) 20 (11/03/23) 20 (10/02/23) Hemoglobin is above goal. Iron Saturation is below goal. Ferritin is below goal. Will adjust SIRISHA and intravenous iron. No SIRISHA with Hgb >11 No iron at this time is needed while Hgb above 11 and stable and asymptomatic. Will monitor Nutritional and Metabolic Assessment ALBUMIN (G/DL) g/dL 3.6 (01/31/24) 3.4 (12/25/23) 3.4 (12/04/23) BICARBONATE (CO2) mEq/L 30 (01/31/24) 26 (12/25/23) 25 (12/04/23) POTASSIUM (MMOL/L) IN SER/PLAS mEq/L 3.8 (01/31/24) 3.8 (12/25/23) 4.3 (12/04/23) Sodium mEq/L 143 (01/31/24) 140 (12/25/23) 144 (12/04/23) 25 OH VITAMIN D ng/mL 39.1 (06/23/23) 30.8 (10/07/22) 17.8 (08/24/22) Albumin is below goal. Encourage high biological value protein intake. Oral nutritional supplement program. Potassium is at goal. He is on protein supplement, high protein diet, and albumin remains low but improving Given protein drink and powder to use Bone and Mineral Metabolism Assessment CALCIUM mg/dL 8.8 (01/31/24) 8.5 (12/25/23) 8.6 (12/04/23) CALCIUM (MG/DL) CORRECTED FOR ALBUMIN IN SER/PLAS mg/dL 9.1 (01/31/24) 9.0 (12/25/23) 9.1 (12/04/23) CALCIUM PHOSPHORUS PRODUCT, COR 34 (01/31/24) 36 (12/25/23) 36 (12/04/23) PHOSPHATE (MG/DL) IN SER/PLAS mg/dL 3.7 (01/31/24) 4.0 (12/25/23) 4.0 (12/04/23) IPTH pg/mL 268 (12/25/23) 235 (10/02/23) 341 (05/31/23) Corrected calcium is at goal. Phosphorus is at goal. Intact PTH is at goal. Cardiovascular Assessment Blood pressure reviewed and is acceptable. Continue same cardiovascular medications. Estimated dry weight is appropriate. He is using all 2.5% bags at this time Transplant Status Patient declined to be evaluated. He was evaluated on past, on hold for years, now advanced age and he has elected to not pursue any further given risks associated with transplant and his GI issues as well. Resuscitation Status Additional Comments: Stable PD, doing well Continue high protein diet Residual function excellent, adequacy being done today Labs overall excellent, albumin even improved to >3.5! Sebastian Charles MD [ Signed And locked electronically On 02/14/2024 at 09:39:39 AM ] Transcribed: Sebastian Charles ( 02/14/2024 ) documented in this encounter Plan of Treatment Not on file documented as of this encounter Visit Diagnoses Not on filedocumented in this encounter Care Teams Converter Skimmer Relationship Specialty Start Date End Date Harish Silver MD [address] [place] [address] PCP - General 05/17/19 documented as of this encounter
--- OUTSIDE RECORDS SUMMARY | 2024-02-23 07:54 | XMS_ITS | Clinical Summary ---
Author Organization [facility] [place] Address [address] [place] [address] Phone Care Team Providers Care Packaging Mechanic Name Role Phone Harish Silver MD Primary Care Provider [phone] Encounters Date Type Department Care Team Description 02/14/2024 Orders Only [facility] [address] [place] [id number] Sebastian Charles MD 02/14/2024 Treatment [facility] [address] [place] [address] Sebastian Charles MD 01/31/2024 Orders Only [facility] [address] [place] [address] Sebastian Charles MD 01/01/2024 Treatment [facility] [address] [place] [address] Sebastian Charles MD 12/25/2023 Orders Only [facility] [address] [place] [address] Sebastian Charles MD 12/08/2023 Treatment [facility] [address] [place] [address] Sebastian Charles MD 12/04/2023 Orders Only [facility] [address] [place] [address] Sebastian Charles MD from Last 3 Months [...] Procedure Name Priority Date/Time Associated Diagnosis Comments PD ADEQUACY Routine 02/14/2024 PD ADEQUACY Routine 02/14/2024 PATIENT INFORMATION Routine 02/14/2024 PATIENT INFORMATION Routine 02/14/2024 PATIENT INFORMATION Routine 02/14/2024 URINE CLEARANCE Routine 02/14/2024 PDF CHEMISTRY Routine 02/14/2024 CHEMISTRY Routine 02/14/2024 CHEMISTRY Routine 01/31/2024 HEMATOLOGY Routine 01/31/2024 CHEMISTRY Routine 12/25/2023 CHEMISTRY Routine 12/25/2023 HEMATOLOGY Routine 12/25/2023 CHEMISTRY Routine 12/04/2023 HEMATOLOGY Routine 12/04/2023 from Last 3 Months Results * (ABNORMAL) URINE CLEARANCE (02/14/2024) Urea Nitrogen, [...] Urine Sebastian Charles MD LAB URINE ORDERABLES [facility] [employer] [facility] See order comments or contact performing [...] FLUIDS AND STOOLS ORDERABLES Performing Organization Address City/[facility] Co de Phone Number [facility] [employer] [facility] See order comments or contact performing lab Unknown, [place] * PD ADEQUACY (02/14/2024) Only the most recent of2 resultswithin the time period is included. Kt/V, Residual 2.42 [facility] 02/14/2024 02/15/2024 9:5 3 AM CDT Narrative [facility] - 02/15/2024 Unless otherwise specified, test(s) performed at: [facility], [address] [place] [address], [place] [address] CIRCULAR KNITTER HELPER: Dariel Doyle M.D., Ph.D For any questions, please call customer service at FREQUENCY:OTHER Resulting Agency Comment Specimen source: Urine Sebastian Charles MD LAB BODY FLUIDS AND STOOLS ORDERABLES Performing Organization Address [facility] de Phone Number [facility] [employer] [facility] See order comments or contact performing lab Unknown, [place] * PATIENT INFORMATION (02/14/2024) Only the most recent of3 resultswithin the time period is included. Urea Volume Distribution (Zoraida) 43.3 L [facility] 02/14/2024 02/15/2024 9:3 6 AM CDT Narrative [facility] - 02/15/2024 Unless otherwise specified, test(s) performed at: [facility], [address] [place] [address], [place] [address] CIRCULAR KNITTER HELPER: Dariel Doyle M.D., Ph.D For any questions, please call customer service at FREQUENCY:OTHER Resulting Agency Comment Specimen source: PD Fluid Sebastian Charles MD LAB BLOOD ORDERABLES Performing Organization Address [facility]/ZIP Co de Phone Number [facility] See order comments or contact performing lab Unknown, [place] * (ABNORMAL) [facility] (02/14/2024) Only the most recent of5 resultswithin the time period is included. Pathologist [facility] BUN 49(H) 6 - 19 mg/dL [facility] 02/14/2024 02/15/2024 7:1 3 AM CDT Narrative [facility] - 02/15/2024 Unless otherwise specified, test(s) performed at: [facility], [address] [place] [address], [place] [address] CIRCULAR KNITTER HELPER: Dariel Doyle M.D., Ph.D For any questions, please call customer service at FREQUENCY:MONTHLY Resulting Agency Comment Specimen source: Serum Sebastian Charles MD LAB BLOOD ORDERABLES Performing Organization Address [facility] de Phone Number [facility] See order comments or contact performing lab Unknown, [place] * (ABNORMAL) HEMATOLOGY (01/31/2024) Only the most recent of3 resultswithin the time period is included. Pathologist [facility] Neutrophils 70.8 40.0 - 75.0 % [facility] Lymphocytes Relative 8.3(L) 19.0 - 48.0 % [facility] Monocytes 9.6 3.0 - 10.0 % [facility] Eosinophils Relative 8.0(H) 0.0 - 7.0 % [facility] Basophils Relative 0.6 0.0 - 1.5 % [facility] JUAN ANTONIO 2.6 0.0 - 4.0 % [facility] WBC 5.02 4.80 - 10.80 1000/mcL [facility] RBC 3.67(L) 4.70 - 6.10 mill/mcL [facility] Hematocrit 37.5(L) 42.0 - 52.0 % [facility] MCV 102(H) 80 - 100 fl [facility] MCH 31.7(H) 27.0 - 31.0 pg [facility] MCHC 31.0 30.0 - 36.0 g/dL [facility] RDW 13.7 11.5 - 14.5 % [facility] Hemoglobin 11.6(L) 14.0 - 18.0 g/dL [facility] Hemoglobin x 3 34.8(L) 42.0 - 54.0 % [facility] Platelets 189 130 - 400 1000/mcL [facility] 01/31/2024 02/01/2024 11: 25 AM CDT Narrative [facility] - 02/01/2024 Unless otherwise specified, test(s) performed at: [facility], [address] [place] [address], [place] [address] CIRCULAR KNITTER HELPER: Dariel Doyle M.D., Ph.D For any questions, please call customer service at FREQUENCY:MONTHLY Resulting Agency Comment Specimen source: Blood Sebastian Charles MD LAB BLOOD ORDERABLES [facility] See order comments or contact performing lab Unknown, [place] from Last 3 Months Care Teams Packaging Mechanic Relationship Specialty Start Date End Date Harish Silver MD [address] [place] [address] PCP - General 05/17/19
--- OUTSIDE RECORDS SUMMARY | 2024-02-23 07:54 | XMS_ITS ---
Author Organization 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 More than 4 times per year 04/11/2022 Do you belong to any clubs o r organizations such as orthodoxy groups, unions, fraternal [...] and heating? Not hard at all 05/13/2023 [facility] - Occupational [...] your living situation today? I have a [facility] place to live 05/13/2023 Education [...] (177 lb 7.5 oz) 10/17/2023 10:05 AM NURSE EXTERN Height 172.5 cm (5' 7.91) 10/17/2023 10:[address] Body Mass Index 27.05 10/17/2023 10:05 AM NURSE EXTERN Results * (JASON) 2D WITH COLOR, LIMITED DOPPLER AND CONTRAST (11/27/2023 11:15 AM CDT) Ejection Fraction 60 MC CV EIMS Anatomical Region Laterality Modality Echocardiography 11/27/2023 10:1 [...] and the findings as documented in the speech pathology teacher and also performed a pertinent examination including [...] performed at the request of the primary workforce services representative. Adult probe inserted without difficulty. LEFT VENTRICLE:Normal [...] Agitated saline injection(s) performed during sedation. No nmdlq-jl-zywu shunt at atrial level at rest or [...] Sedation Narrator or other pertinent record in [facility] for additional procedure and sedation information. Physician [...] valve ??with mild aortic valve regurgitation and lucohirv-jj-gmkgyl aortic stenosis by visual estimate on 2D imaging (recommend transthoracic echocardiogram for further evaluation as clinically indicated). 5. Moderate tricuspid valve regurgitation. There is tricuspid prolapse. 6. Due to patient's achalasia, the descending aorta was not able to be well visualized on today's examination. 7. 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 8. Agitated saline injection(s) performed during sedation ??no apparent mgxww-im-raxy shunting at the atrial level at rest [...] aortic valve with mild aortic valve regurgitation pcgloprqoer-lk-mmjnva aortic stenosis by visual estimate on 2D imaging(recommend transthoracic echocardiogram for further evaluation asclinically indicated). 5. Moderate tricuspid valve regurgitation. There is tricuspid prolapse. 6. Due to patient's achalasia, the descending aorta was not able to bewell visualized on today's examination. 7. 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 8. Agitated saline injection(s) performed during sedation no aagfznpfxmdnr-ex-lqcc shunting at the atrial level at rest [...] and the findings as documented in the speech pathology teacher and alsoperformed a pertinent examination including a heart, airway and lungassessment. Mallampati Assessment: As documented in the RN pre-procedureassessment. Sedation plan: Transesophageal echo - moderate sedation. ASAphysical status score: Class III. The patient's identity and all neededequipment were confirmed and a final confirmatory pause was performed bythe team immediately prior to start. PROCEDURAL ECHO FINDINGS:Transesophageal echocardiogram performed at the request of the primaryservice interventional sale consultant. Adult probe inserted without difficulty. LEFT [...] cava. Agitated saline injection(s) performed during sedation. Npsjatm-zg-mylx shunt at atrial level at rest or [...] See Sedation Narrator or other pertinentrecord in [facility] for additional procedure and sedation information.Physician signature for procedural medications and patient discharge whenDC criteria met. For the complete report, see the Order-Level Documents. Sarina Miller P.A.-C., M.S. CV ECHO PROCEDURES * (ABNORMAL) CBC with Differential, Blood (11/27/2023 9:49 AM CDT) Hemoglobin 12.4(L) 13.2 - 16.6 g/dL 11/27/2023 [...] Miller P.A.-C., M.S. LAB BLO OD ADD-ON [facility] [address] [place] [address], [facility] DTL [facility] [address] [place] [address] DHPM [facility] [address] [place] [address] * (ABNORMAL) Creatinine with Estimated GFR (11/27/2023 9:49 AM CDT) Creatinine 4.46(H) 0.74 - 1.35 mg/dL 11/27/2023 11:16 AM CDT DTL Estimated GFR (eGFR) <15(L) >=60 mL/min/BSA 11/27/2023 11:16 AM CDT DTL Comment: Estimated GFR calculated using the 2020 CKD_EPI creatinine equation. Blood (Blood, Venous) 11/27/2023 9:49 AM CDT 11/27/2023 10:56 AM CDT Sarina Miller P.A.-C., M.S. LAB BLO OD ADD-ON [facility] [address] [place] [address], [facility] DTL [facility] [address] [place] [address] from Last 3 Months
--- OUTSIDE RECORDS SUMMARY | 2024-02-23 07:54 | XMS_ITS | Clinical Summary ---
Author Organization [facility] Address [address] [place] [address] Care Team Providers Care Enterprise Manager Name Role Phone Elsewhere, Pcp Primary Care Provider Unavailabl e Source Comments Patient records contain information from all sites at [facility]. For routine questions regarding patient records, call [phone] during business hours, M-F 8:00 AM - 5:00 PM Central Time. 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 Stenosis Aortic Valve Acquired (Primary Dx); Atrial Fibrillation Paroxysmal (HCC) 11/27/2023 10:01 AM CDT - 11/27/2023 11:59 PM CDT Hospital Encounter Department of Cardiovascular Diseases in [address] [address] Sarina Miller P.A.-C., M.S. Atrial Fibrillation Paroxysmal (HCC) Discharge Disposition: Home or Self Care 11/24/2023 9:30 AM CDT Clinical Communication Virtual Review in [place], [place] [address] [place] [address] Pre-visit Intake from Last 3 Months Immunizations Name Administration [...] often do you attend chur ch or protestant services? More than 4 times per year 04/11/2022 Do you belong to any clubs o r organizations such as moravian groups, unions, fraternal [...] and heating? Not hard at all 05/13/2023 [facility]ational Stress Questionnaire Answer Date [...] (177 lb 7.5 oz) 10/17/2023 10:05 AM AIRCRAFT ENGINE MECHANIC SUPERVISOR Height 172.5 cm (5' 7.91) 10/17/2023 10:[address] Body Mass Index 27.05 10/17/2023 10:05 AM AIRCRAFT ENGINE MECHANIC SUPERVISOR Plan of Treatment Health Maintenance Due Date Last Done Comments COVID-19 Vaccine (2022-09 4 season) 2023 05/19/2022, 05/18/2021, 10/14/2020, Additional history exists Depression Screening (Annual PHQ-2) 08/21/2023 Influenza Vaccine (#1) 2024 , 05/19/2022, 05/18/2021, Additional history exists DTaP,Tdap,and Td Vaccines (2 - Td or Tdap) 07/10/2024 07/10/2014, 03/18/2008 Office Visit for Blood Press ure Check / Re-check 08/07/2024 08/07/2023 Creatinine Level (Kidney Fun ction Test) 11/30/2024 12/01/2023, 11/27/2023, 10/16/2023, Additional history exists Potassium Level 11/30/2024 12/01/2023, 09/22, 10/16/2023, Additional history exists Sodium Level 11/30/2024 12/01/2023, 09/22, 09/04/2023, Additional history exists Pneumococcal vaccine (65+ years) Completed 11/05/19, 02/02/2009 Zoster Vaccines Completed 02/14/2019, 11/20, 04/08/2010 Fall Risk Screen (Annual) Completed 11/27/2023 Medical Devices Implanted Type Area Employee Health Nurse Device Identifier Shelf Expiration Date Model / Serial / Lot Osteomed-Plate Straight 2 Hole Med - Baptiste [id number] Implanted:Qty: 1 on 06/19/2002 Hardware e.g. pins/screws/ rods [employer] Description:Device Manufactu rer - [employer]. Device Status Text - [id number]. Osteomed-Plate [place] Hole Large - Baptiste [id number] Implanted:Qty: 2 on 06/19/2002 Hardware e.g. pins/screws/ rods [employer] Description:Device Manufactu rer - [employer]. Device Status Text - [id number]. Osteomed-Screw Auto-Drive 1.6 X 4 - Baptiste [id number] Implanted:Qty: 16 on 06/19/2002 Hardware e.g. pins/screws/ rods [employer] Description:Device Manufactu rer - [employer]. Device Status Text - [id number]. Dev Kelsie Cls [facility] Pro Del Sys 27 - [id number] Implanted:Qty: 1 on 10/17/2023 by Radha Andrade M.B.B.S. at [facility] Mesh or Patch [employer] 05/07/2026 [id number] / / [id number] Procedures Procedure Name Priority Date/Time Associated Diagnosis [...] and the findings as documented in the textile stylist and also performed a pertinent examination including [...] performed at the request of the primary air conditioning service technician. Adult probe inserted without difficulty. LEFT [...] Agitated saline injection(s) performed during sedation. No twhib-xf-fraa shunt at atrial level at rest or [...] Sedation Narrator or other pertinent record in [facility] for additional procedure and sedation information. [...] valve ??with mild aortic valve regurgitation and lbzyfqvz-vt-hulzdv aortic stenosis by visual estimate on 2D imaging (recommend transthoracic echocardiogram for further evaluation as clinically indicated). 5. Moderate tricuspid valve regurgitation. There is tricuspid prolapse. 6. Due to patient's achalasia, the descending aorta was not able to be well visualized on today's examination. 7. 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 8. Agitated saline injection(s) performed during sedation ??no apparent vcqwn-uk-mwoi shunting at the atrial level at rest [...] aortic valve with mild aortic valve regurgitation qmrzbreqsff-gt-njcgyu aortic stenosis by visual estimate on 2D imaging(recommend transthoracic echocardiogram for further evaluation asclinically indicated). 5. Moderate tricuspid valve regurgitation. There is tricuspid prolapse. 6. Due to patient's achalasia, the descending aorta was not able to bewell visualized on today's examination. 7. 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 8. Agitated saline injection(s) performed during sedation no ehnlgbnihftrb-ll-xiaz shunting at the atrial level at rest [...] and the findings as documented in the textile stylist and alsoperformed a pertinent examination including a heart, airway and lungassessment. Mallampati Assessment: As documented in the RN pre-procedureassessment. Sedation plan: Transesophageal echo - moderate sedation. ASAphysical status score: Class III. The patient's identity and all neededequipment were confirmed and a final confirmatory pause was performed bythe team immediately prior to start. PROCEDURAL ECHO FINDINGS:Transesophageal echocardiogram performed at the request of the primaryservice applications sales consultant. Adult probe inserted without difficulty. [...] cava. Agitated saline injection(s) performed during sedation. Tutikto-jx-imrl shunt at atrial level at rest or [...] See Sedation Narrator or other pertinentrecord in [employer] for additional procedure and sedation information.Physician signature [...] Miller P.A.-C., M.S. LAB BLO OD ADD-ON [facility] [address] [place] [address], [facility] DTL [facility] [address] [place] [address] [facility] [address] [place] [address] * (ABNORMAL) Creatinine with Estimated GFR (11/27/2023 9:49 AM CDT) Creatinine 4.46(H) 0.74 - 1.35 mg/dL 11/27/2023 11:16 AM CDT DTL Estimated GFR (eGFR) <15(L) >=60 mL/min/BSA 11/27/2023 11:16 AM CDT DTL Comment: Estimated GFR calculated using the 2020 CKD_EPI creatinine equation. Blood (Blood, Venous) 11/27/2023 9:49 AM CDT 11/27/2023 10:56 AM CDT Sarina Miller P.A.-C., M.S. LAB BLO OD ADD-ON [facility] [address] [place] [address], [place] DTL [facility] [address] [place] [address] from Last 3 Months Advance Directives For more information, please contact: [phone] * Full Code (Latest Code Status on [...] Answer Comments Full Code: Discussed Care Teams Enterprise Manager Relationship Specialty Start Date End Date Elsewhere, Pcp PCP - General Internal Medicine 11/24/23
--- OUTSIDE RECORDS SUMMARY | 2024-02-23 07:54 | XMS_ITS | Encounter Summary ---
Author Organization [facility] Address [address] [place] [address] Care Team Providers Care Steam Shovel Runner Name Role Phone Elsewhere, Pcp Primary Care Provider Unavailabl e Reason for Referral * Outpatient (Routine) - Closed Specialty Diagnoses / Procedures Referred By Albino henao Referred To Contact Diagnoses Atrial Fibrillation Paroxysmal (HCC) Procedures Echo Transesophageal (JASON) Sarina Miller P.A.-C., M.S. [address] [place] [phone] [facility] Referral ID Status Reason Start Date Expiration Date Visits Re quested Visits Authorized [id number] Closed 06/16/2023 06/15/2024 1 1 Reason for Visit * Outpatient (Routine) - Closed Specialty Diagnoses / Procedures Referred By Wilsonac juliano Referred To Contact Diagnoses Atrial Fibrillation Paroxysmal (HCC) Procedures Echo Transesophageal (JASON) Sarina Miller P.A.-C., M.S. [address] [place] [phone] [facility] Referral ID Status Reason Start Date Expiration Date Visits Re quested Visits Authorized [id number] Closed 06/16/2023 06/15/2024 1 1 Encounter Details Date Type Department Care Team (Latest Contact Info) Description 11/27/2023 10:01 AM CDT - 11/27/2023 11:59 PM CDT Hospital Encounter Department of Cardiovascular Diseases in [place], [place] [address] [place] [address] Sarina Miller P.A.-C., M.S. [address] [place] [address] Atrial Fibrillation Paroxysmal (HCC) Discharge Disposition: Home [...] How often do you attend chur or advent services? More than 4 times per year 04/11/2022 Do you belong to any clubs o r organizations such as denominational groups, unions, fraternal or [...] and heating? Not hard at all 05/13/2023 [facility] of Occupat ional Health - Occupational Stress [...] (11/27/2023 11:15 AM CDT) Ejection Fraction 60 [facility] Anatomical Region Laterality Modality Echocardiography 11/27/2023 10:1 [...] and the findings as documented in the percussion teacher and also performed a pertinent examination [...] performed at the request of the primary food and nutrition services supervisor. Adult probe inserted without difficulty. LEFT VENTRICLE:Normal [...] Agitated saline injection(s) performed during sedation. No pohaa-eo-kick shunt at atrial level at rest or [...] Sedation Narrator or other pertinent record in [facility] for additional procedure and [...] valve ??with mild aortic valve regurgitation and jwkpupsd-ra-xgexth aortic stenosis by visual estimate on 2D imaging (recommend transthoracic echocardiogram for further evaluation as clinically indicated). 5. Moderate tricuspid valve regurgitation. There is tricuspid prolapse. 6. Due to patient's achalasia, the descending aorta was not able to be well visualized on today's examination. 7. 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 8. Agitated saline injection(s) performed during sedation ??no apparent owrls-fd-khqj shunting at the atrial level at rest [...] aortic valve with mild aortic valve regurgitation sigpxkcudzr-bw-rumjhc aortic stenosis by visual estimate on 2D imaging(recommend transthoracic echocardiogram for further evaluation asclinically indicated). 5. Moderate tricuspid valve regurgitation. There is tricuspid prolapse. 6. Due to patient's achalasia, the descending aorta was not able to bewell visualized on today's examination. 7. 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 8. Agitated saline injection(s) performed during sedation no puipeganpreeg-sv-pkxr shunting at the atrial level at rest [...] and the findings as documented in the percussion teacher and alsoperformed a pertinent examination including [...] performed at the request of the primaryservice financial operations consultant. Adult probe inserted without difficulty. LEFT [...] cava. Agitated saline injection(s) performed during sedation. Ywmjexv-et-yctp shunt at atrial level at rest or [...] See Sedation Narrator or other pertinentrecord in [facility] for additional procedure and [...] mL documented in this encounter Care Teams Steam Shovel Runner Relationship Specialty Start Date End Date Elsewhere, Pcp PCP - General Internal Medicine 11/24/23 documented as of this encounter
--- OUTSIDE RECORDS SUMMARY | 2024-02-23 07:54 | XMS_ITS | Referral Summary ---
Author Organization [facility] Address [address] [place] [address] Care Team Providers Care Technology Coordinator Name Role Phone Elsewhere, Pcp Primary Care Provider Unavailabl e Source Comments Patient records contain information from all sites at [facility]. For routine questions regarding patient records, call [phone] during business hours, M-F 8:00 AM - 5:00 PM Central Time. Record requests for emergency care only can be directed to [phone] at any time.[facility] Encounters Date Type Department Care Team Description 11/28/2023 1:00 PM CDT Telemedicine Department of Cardiovascular Medicine in [address] [phone] Sarina Miller, P.A.-C., M.S. Stenosis Aortic Valve Acquired (Primary Dx); Atrial Fibrillation Paroxysmal (HCC) 11/27/2023 10:01 AM CDT - 11/27/2023 11:59 PM CDT Hospital Encounter Department of Cardiovascular Diseases in [address] [address] Sarina Miller, P.A.-C., M.S. Atrial Fibrillation Paroxysmal (HCC) Discharge Disposition: Home or Self Care 11/24/2023 9:30 AM CDT Clinical Communication Virtual Review in [place], [place] [address] [place] [address] Pre-visit Intake from Last 3 Months Allergies Active Allergy [...] Aortic Valve Acquired 05/18/2023 Hemorrhage Gastrointestinal 06/05/2022 Halfway (Current) Anticoagulant Treatment 11/20 Hypertensive Chronic Kidney [...] often do you attend chur ch or sikhism services? More than 4 times per year 04/11/2022 Do you belong to any clubs o r organizations such as pentecostal groups, unions, fraternal or [...] and heating? Not hard at all 05/13/2023 [facility] of Occupat ional Health - [...] living situation today? I have a [facility] place to live 05/13/2023 Education Answer [...] (177 lb 7.5 oz) 10/17/2023 10:05 AM HEALTH AND PHYSICAL EDUCATION PROFESSOR Height 172.5 cm (5' 7.91) 10/17/2023 10:[address] Body Mass Index 27.05 10/17/2023 10:05 AM HEALTH AND PHYSICAL EDUCATION PROFESSOR Plan of Treatment Not on file Medical Devices Implanted Type Area Donor Floor Technician Device Identifier Shelf Expiration Date Model / Serial / Lot Osteomed-Plate Straight 2 Hole Med - [place] [id number] Implanted:Qty: 1 on 06/19/2002 Hardware e.g. pins/screws/ rods [employer] Description:Device Manufactu rer - [employer]. Device Status Text - [id number]. Osteomed-Plate [place] Hole Large - [place] [id number] Implanted:Qty: 2 on 06/19/2002 Hardware e.g. pins/screws/ rods [employer] Description:Device Manufactu rer - [employer]. Device Status Text - [id number]. Osteomed-Screw Auto-Drive 1.6 X 4 - [place] [id number] Implanted:Qty: 16 on 06/19/2002 Hardware e.g. pins/screws/ rods [employer] Description:Device Manufactu rer - [employer]. Device Status Text - [id number]. Dev Kelsie Cls [facility] Pro Del Sys 27 - [id number] Implanted:Qty: 1 on 10/17/2023 by Radha Andrade M.B.BBaileyS. at [facility] Mesh or Patch [employer] 05/07/2026 [id number] / / [id number] Procedures Procedure Name Priority Date/Time Associated Diagnosis [...] (11/27/2023 11:15 AM CDT) Ejection Fraction 60 [facility] Anatomical Region Laterality Modality Echocardiography 11/27/2023 10:1 [...] and the findings as documented in the metal furniture panel coverer and also performed a pertinent examination including [...] performed at the request of the primary service order taker. Adult probe inserted without difficulty. LEFT VENTRICLE:Normal [...] Agitated saline injection(s) performed during sedation. No ysfat-wo-kxtl shunt at atrial level at rest or [...] Sedation Narrator or other pertinent record in [place] for additional procedure and sedation information. Physician [...] valve ??with mild aortic valve regurgitation and ycdeigkv-tt-krjhou aortic stenosis by visual estimate on 2D imaging (recommend transthoracic echocardiogram for further evaluation as clinically indicated). 5. Moderate tricuspid valve regurgitation. There is tricuspid prolapse. 6. Due to patient's achalasia, the descending aorta was not able to be well visualized on today's examination. 7. 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 8. Agitated saline injection(s) performed during sedation ??no apparent qgnxh-xw-aauy shunting at the atrial level at rest [...] aortic valve with mild aortic valve regurgitation weoqgmlfhos-jk-iplgll aortic stenosis by visual estimate on 2D imaging(recommend transthoracic echocardiogram for further evaluation asclinically indicated). 5. Moderate tricuspid valve regurgitation. There is tricuspid prolapse. 6. Due to patient's achalasia, the descending aorta was not able to bewell visualized on today's examination. 7. 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 8. Agitated saline injection(s) performed during sedation no knulsoofqlpll-do-hjso shunting at the atrial level at rest [...] and the findings as documented in the metal furniture panel coverer and alsoperformed a pertinent examination including a heart, airway and lungassessment. Mallampati Assessment: As documented in the RN pre-procedureassessment. Sedation plan: Transesophageal echo - moderate sedation. ASAphysical status score: Class III. The patient's identity and all neededequipment were confirmed and a final confirmatory pause was performed bythe team immediately prior to start. PROCEDURAL ECHO FINDINGS:Transesophageal echocardiogram performed at the request of the primaryservice vmware consultant. Adult probe inserted without difficulty. LEFT [...] cava. Agitated saline injection(s) performed during sedation. Kvcjqhe-ru-gurr shunt at atrial level at rest or [...] See Sedation Narrator or other pertinentrecord in [facility] for additional procedure and sedation information.Physician signature [...] Miller P.A.-C., M.S. LAB BLO OD ADD-ON [facility] [place] [address] [place] [address], [facility] [address] [place] [address] [facility] [address] [place] [address] * (ABNORMAL) Creatinine with Estimated GFR (11/27/2023 9:49 AM CDT) Creatinine 4.46(H) 0.74 - 1.35 mg/dL 11/27/2023 11:16 AM CDT DTL Estimated GFR (eGFR) <15(L) >=60 mL/min/BSA 11/27/2023 11:16 AM CDT DTL Comment: Estimated GFR calculated using the 2020 CKD_EPI creatinine equation. Blood (Blood, Venous) 11/27/2023 9:49 AM CDT 11/27/2023 10:56 AM CDT Sarina Miller P.A.-C., M.S. LAB BLO OD ADD-ON Performing Organization Address City/[facility]/ZIP Co de Phone Number [facility] [place] [address] [place] [address], [facility] [address] [place] [address] from Last 3 Months Advance Directives For more information, please contact: [phone] * Full Code (Latest Code Status on [...] Answer Comments Full Code: Discussed Care Teams Technology Coordinator Relationship Specialty Start Date End Date Elsewhere, Pcp PCP - General Internal Medicine 11/24/23
--- OUTSIDE RECORDS SUMMARY | 2024-02-23 07:54 | XMS_ITS | Encounter Summary ---
Author Organization [facility] Address [address] [place] [address] Care Team Providers Care Diagrammer Name Role Phone Elsewhere, Pcp Primary Care Provider Unavailabl e Reason for Visit * Reason Onset Date Comments Pre-visit Intake 11/24/2023 Encounter Details Date Type Department Care Team (Latest Contact Info) Description 11/24/2023 9:30 AM CDT Clinical Communication Virtual Review in [place], [place] [address] [place] [address] Pre-visit Intake Social History Tobacco Use Types [...] often do you attend chur ch or tenriism services? More than 4 times per year 04/11/2022 Do you belong to any clubs o r organizations such as holiness groups, unions, fraternal or [...] and heating? Not hard at all 05/13/2023 [facility] of Occupat ional Health [...] your living situation today? [facility] live 05/13/2023 Education Answer [...] on filedocumented in this encounter Care Teams Diagrammer Relationship Specialty Start Date End Date Elsewhere, Pcp PCP - General Internal Medicine 11/24/23 documented as of this encounter
--- OUTSIDE RECORDS SUMMARY | 2024-02-23 07:54 | XMS_ITS ---
Author Organization [facility] Address [address] [place] [address] Care Team Providers Care Pilot Control Operator Name Role Phone Unavailable Unavailable Unavailable Surgery Details Not on file Complications Check Surgery Details section. Procedure Estimated Blood Loss Check Surgery Details section. Procedure Findings Check Surgery Details section. Procedure Specimens Taken Check Surgery Details section.
--- OUTSIDE RECORDS SUMMARY | 2024-02-23 07:54 | XMS_ITS ---
Author Name Gwendolyn, Clinic Address [address] [place] [id number] Phone [phone] Organization [facility] e, NA DOCUMENT DISCLAIMER Multiple document versions may exist, please be sure you review the latest version. The information in the [facility] Continuity of [...] Instructions Dosage Route Start Date End Date [facility] allopurinol 100 mg Take by mouth once a day 1 tablet ORAL September 15, 2021 Active amoxicillin 500 mg Take by mouth once a day as directed 4 capsule ORAL September 15, 2021 Active calcitriol 0.25 mcg Take by mouth three times a week 1 capsule ORAL June 13, 2022 Active docusate sodium 100 mg Take by mouth twice a day as needed 1 tablet ORAL March 23, 2022 Active Eliquis 2.5 mg Take by mouth twice a day 1 tablet ORAL December 08, 2023 Active famotidine 20 mg Take by mouth once a day 1 tablet ORAL December 21, 2022 Active gentamicin 0.1% Apply to skin once a day as directed TOPICAL December 13, 2021 Active metoprolol tartrate 25 mg Take by mouth twice a day /2 ORAL May 11, 2022 Active pantoprazole 40 mg Take by mouth twice a day 1 tablet ORAL December 21, 2022 Active torsemide 20 mg Take by mouth once a day 1 tablet ORAL December 22, 2021 Active VITAL SIGNS Post-Treatment Vital Signs Vital Sign Value Date / Time Blood Pressure-sitting 119/73 mmHg February 23, 2024 12:00 AM Heart Rate 84 beats per minute February 22 12:00 AM Temperature 97.5 deg. F February 23, 2024 12 :00 AM Weight Vital Sign Value Date / Time Estimated Dry Weight 77 kg January 29 11:59 PM Post-Dialysis 78.46 kg February 23, 2024 12 :00 AM Other Other Value Date / Time Height 171 cm September 11, 2023 12:00 AM Body Mass Index 26.33 kg/m2 February 06, 2024 04 :46 PM [facility]ERNS Tuberculosis Testing TST Date Administered TST Date Read TST Result 09/14/2021 09/16/2021 Negative (<5) mm LAB RESULTS Hematology Result Type Result Value Relevant Referen ce Range Interpretation Date Neutrophils 73.0 % 40.0 - 75.0 % - August WBC (No Diff) 7.04 1000/mcL 4.80 - 10.80 1000/mcL - August 28, 2023 Transferrin Sat. (Calc) 34 % 20 - 55 % - August 28, 2023 UIBC (Calc) 165 mcg/dL 155 - 355 mcg/dL - August 28, 2023 TIBC 251 mcg/dL 185 - 515 mcg/dL - August 28, 2023 UIBC (Calc) 224 mcg/dL 155 - 355 mcg/dL - 2023 TIBC 281 mcg/dL 185 - 515 mcg/dL - October 02, 2023 Transferrin Sat. (Calc) 20 % 20 - 55 % - October 02 Ferritin 25 ng/mL 22 - 322 ng/mL - September 212023 Neutrophils 69.4 % 40.0 - 75.0 % - September 212023 WBC (No Diff) 6.25 1000/mcL 4.80 - 10.80 1000/mcL - October 02, 2023 UIBC (Calc) 241 mcg/dL 155 - 355 mcg/dL - October 192023 TIBC 301 mcg/dL 185 - 515 mcg/dL - October Transferrin Sat. (Calc) 20 % 20 - 55 % - November 03, 2023 Neutrophils 69.3 % 40.0 - 75.0 % - November 03, 2023 WBC (No Diff) 5.71 1000/mcL 4.80 - 10.80 1000/mcL - November 03, 2023 Basophils 0.6 % 0.0 - 1.5 % - December 03 4 Eosinophil 6.5 % 0.0 - 7.0 % - December 03 WBC (No Diff) 4.85 1000/mcL 4.80 - 10.80 1000/mcL - December 04, 2023 JUAN ANTONIO 1.0 % 0.0 - 4.0 % - December 03 4 Neutrophils 81.0 % 40.0 - 75.0 % High December 04, 2023 Monocytes 4.9 % 3.0 - 10.0 % - December 03 Lymphocytes 6.0 % 19.0 - 48.0 % Low December 04, 2023 Platelets 127 1000/mcL 130 - 400 1000/mcL Low Apri l 2023 Hemoglobin x 3 36.3 % 42.0 - 54.0 % Low November 192023 MCHC 31.6 g/dL 30.0 - 36.0 g/dL - November MCH 33.6 pg 27.0 - 31.0 pg High December 04, 2023 RDW 13.2 % 11.5 - 14.5 % - December 03 024 UIBC (Calc) 261 mcg/dL 155 - 355 mcg/dL - November 192023 Iron 48 mcg/dL 45 - 160 mcg/dL - December 04, 2023 Transferrin Sat. (Calc) 16 % 20 - 55 % Low December 04, 2023 TIBC 309 mcg/dL 185 - 515 mcg/dL - November WBC (No Diff) 4.43 1000/mcL 4.80 - 10.80 1000/mcL Low December 25, 2023 JUAN ANTONIO 2.4 % 0.0 - 4.0 % - December 25, 2023 MCHC 32.2 g/dL 30.0 - 36.0 g/dL - December 25, 2023 MCH 33.7 pg 27.0 - 31.0 pg High December 24 Hemoglobin x 3 36.6 % 42.0 - 54.0 % Low December 25, 2023 RDW 13.7 % 11.5 - 14.5 % - December 24 Neutrophils 76.5 % 40.0 - 75.0 % High December 24 Basophils 1.6 % 0.0 - 1.5 % High December 25, 2023 Eosinophil 8.5 % 0.0 - 7.0 % High December 25, 2023 Monocytes 5.7 % 3.0 - 10.0 % - December 25, 2023 Lymphocytes 5.4 % 19.0 - 48.0 % Low December 24 TIBC 296 mcg/dL 185 - 515 mcg/dL - December 25, 2023 UIBC (Calc) 265 mcg/dL 155 - 355 mcg/dL - December 25, 2023 Iron 31 mcg/dL 45 - 160 mcg/dL Low December 24 024 Transferrin Sat. (Calc) 10 % 20 - 55 % Low December 25, 2023 Platelets 157 1000/mcL 130 - 400 1000/mcL - December 25, 2023 Ferritin 24 ng/mL 22 - 322 ng/mL - December 24 Hemoglobin x 3 34.8 % 42.0 - 54.0 % Low January HGB 11.6 g/dL 14.0 - 18.0 g/dL Low January 31, 2024 Platelets 189 1000/mcL 130 - 400 1000/mcL - January 31, 2024 UIBC (Calc) 298 mcg/dL 155 - 355 mcg/dL - January Iron 33 mcg/dL 45 - 160 mcg/dL Low January 31, 2024 TIBC 331 mcg/dL 185 - 515 mcg/dL - January 31, 2024 Transferrin Sat. (Calc) 10 % 20 - 55 % Low January 31, 2024 Monocytes 9.6 % 3.0 - 10.0 % - January 30 Lymphocytes 8.3 % 19.0 - 48.0 % Low January 30 Neutrophils 70.8 % 40.0 - 75.0 % - January 30 RDW 13.7 % 11.5 - 14.5 % - January 30 MCHC 31.0 g/dL 30.0 - 36.0 g/dL - January 31, 2024 WBC (No Diff) 5.02 1000/mcL 4.80 - 10.80 1000/mcL - January 31, 2024 JUAN ANTONIO 2.6 % 0.0 - 4.0 % - January 31, 2024 Basophils 0.6 % 0.0 - 1.5 % - January 31, 2024 Eosinophil 8.0 % 0.0 - 7.0 % High January 31, 2024 MCH 31.7 pg 27.0 - 31.0 pg High January 30 HCT 37.5 % 42.0 - 52.0 % Low January 30 RBC 3.67 mill/mcL 4.70 - 6.10 mill/mcL Low January 31, 2024 Metabolic/Renal Result Type Result Value Relevant Referen ce Range Interpretation Date Vitamin B12 600 pg/mL 211 - 911 pg/mL - June 23, 2023 Creatinine, Serum 3.84 mg/dL 0.60 - [...] 6 - 19 mg/dL High December 03 BUN/Creat Ratio 11.2 10.0 - 20.0 - December 25, 2023 Creatinine, Serum 4.29 mg/dL 0.60 - 1.30 mg/dL High December 25, 2023 BUN 48 mg/dL 6 - 19 mg/dL High December 25, 2023 Bicarbonate 26 mEq/L 20 - 31 mEq/L - December 24 Chloride 105 mEq/L 96 - 108 mEq/L - December 24 24 Potassium 3.8 mEq/L 3.5 - 5.1 mEq/L - December 24 024 Sodium 140 mEq/L 136 - 145 mEq/L - December 24 024 Bicarbonate 30 mEq/L 20 - 31 mEq/L - January 30 Creatinine, Serum 4.48 mg/dL 0.60 - 1.30 mg/dL High January 31, 2024 BUN 58 mg/dL 6 - 19 mg/dL High January 30 Sodium 143 mEq/L 136 - 145 mEq/L - January 31, 2024 BUN/Creat Ratio 12.9 10.0 - 20.0 - January 31, 2024 Chloride 106 mEq/L 96 - 108 mEq/L - January 30 Potassium 3.8 mEq/L 3.5 - 5.1 mEq/L - January 31, 2024 nPCR 1.15 g/kg/day No Reference Ran ge Provided - February 14, 2024 Urea Nitrogen, Urine, Timed 526 mg/dL No Reference Range Provided - February 14, 2024 BUN 49 mg/dL 6 - 19 mg/dL High February 13 Bone/Mineral Result Type Result Value Relevant Referen ce Range Interpretation Date Magnesium 2.1 mg/dL 1.6 - 2.6 mg/dL - February 23, 2023 Magnesium 2.4 mg/dL 1.6 - 2.6 mg/dL - May 212022 Magnesium 2.2 mg/dL 1.6 - 2.6 mg/dL - June 23, 2023 Vitamin D 25 Hydroxy 39.1 ng/mL 30.0 - 100.0 ng/mL - June 23, 2023 Magnesium 2.0 mg/dL 1.6 - 2.6 mg/dL - October 02, 2023 PTH-Intact, Plasma 235 pg/mL 16 - 80 pg/mL High Feb ruary 2023 Calcium, Total 8.6 mg/dL 8.7 - 10.4 mg/dL Low Apri l 2023 Ca x P Product 34 0 - 54 - December 04, 2023 Phosphorus 4.0 mg/dL 2.6 - 4.5 mg/dL - December 04, 2023 Corrected Ca x P Product 36 0 - 54 - December 04, 2023 PTH-Intact, Plasma 268 pg/mL 16 - 80 pg/mL High December 25, 2023 Ca x P Product 34 0 - 54 - December 24 24 Corrected Ca x P Product 36 0 - - December 25, 2023 Alkaline Phosphatase 287 U/L 40 - 129 U/L High Ma y 2023 Magnesium 1.9 mg/dL 1.6 - 2.6 mg/dL - December 24 Phosphorus 4.0 mg/dL 2.6 - 4.5 mg/dL - December 24 Calcium, Total 8.5 mg/dL 8.7 - 10.4 mg/dL Low December 25, 2023 Phosphorus 3.7 mg/dL 2.6 - 4.5 mg/dL - January 31, 2024 Calcium, Total 8.8 mg/dL 8.7 - 10.4 mg/dL - January 31, 2024 Ca x P Product 33 0 - - January 30 024 Corrected Ca x P Product 34 0 54 - January 31, 2024 Liver/Nutrition Result Type Result Value Relevant Reference Range Interpre tation Date Albumin (BCG) 3.4 g/dL 3.5 - 5.2 g/dL Low November 192023 Glucose 112 mg/dL 70 - 100 mg/dL High December 04, 2023 Albumin (BCG) 3.4 g/dL 3.5 - 5.2 g/dL Low December 25, 2023 Glucose 104 mg/dL 70 - 100 mg/dL High December 24 Albumin (BCG) 3.6 g/dL 3.5 - 5.2 g/dL - January Glucose 107 mg/dL 70 - 100 mg/dL High January 30 Peritoneal Dialysis Testing Result Type Result Value Relevant Referen ce Range Interpretation Date Total Urea Nitrogen, Urine 7.4 g/24 hr [...] Ran ge Provided - May 03, 2023 Total Urea Nitrogen, Urine 5.4 g/24 [...] 64.0 - 99.0 mL/min Low November 02 Urea Clearance, Urine 8.8 mL/min 64.0 - 99.0 mL/min Low November 02 Urea Clear, Urine Norm Wkly 88 L/wk [...] Ran ge Provided - November 03, 2023 Total Urea Nitrogen, Urine 7.4 g/24 hr 12.0 - 20.0 g/24 hr Low February 14, 2024 Urea Clear, Urine Norm 9.4 mL/min 64.0 - 99.0 mL/min Low February 14, 2024 Urea Clearance, Urine 10.4 mL/min 64.0 - 99.0 mL/min Low February 14, 2024 Urea Clear, Urine Norm Wkly 105 L/wk No Reference Range Provided - February 14, 2024 Urea Nitrogen, PDF 24 Hr 2055.0 mg/24 hr No Reference Range Provided - February 14, 2024 PD Kt/V 24 Hr Dialysate Urea 38 mg/dL No Reference Range Provided - February 14, 2024 Urea Clearance, PD Fluid 2.9 mL/min No Reference Range Provided - February 14, 2024 Urea Clearance, PDF Norm 2.6 mL/min No Reference Range Provided - February 14, 2024 Urea Clear, Total Norm Wkly 134 L/wk No Reference Range Provided - February 14, 2024 Urea Clear, PDF Norm Wkly 29 L/wk No Reference Range Provided - February 14, 2024 Kt/V, Residual 2.42 No Reference Ran ge Provided - February 14, 2024 PNA 86 g/day No Reference Ran ge Provided - February 14, 2024 Infectious Diseases Result Type Result Value Relevant Referen ce Range Interpretation Date Hep B Surface Ab (anti-HBs) 451 mIU/mL No Reference Range Provided - November 03, 2023 DIALYSIS PRESCRIPTION CCPD Data Element Value Order Date/Time January 30, 2024 Frequency 6X Week Treatment Days Rekha Dialysis Machine Lander Estimated Dry Weight 77 kg Calcium Content [...] Exchange Solution Dialysis Access Meds-entered by patient February 23, 2024 1 of 1 - Dextrose 2.5% Peritoneal Dialysis-PD Catheter-Double Cuff Coiled, Right Upper Quadrant of Abdomen Access Placed on August 16, 2021 - Vitals Time Weight BP Heart Rate Temperature Blood Sugar February 23, 2024 (AM) 78.46 kg 119/73 mmHg 84 beats per minute 97.5 deg. F - CCPD-Patient[facility] Date Exchanges Fill Volume Exchange Solution Dialysis Access Meds-entered by patient February 22, 2024 1 of 1 - Dextrose 2.5% Peritoneal Dialysis-PD Catheter-Double Cuff Coiled, Right Upper Quadrant of Abdomen Access Placed on August 16, 2021 - Vitals Time Weight BP Heart Rate Temperature Blood Sugar February 22, 2024 (AM) 79.0 kg 115/71 mmHg 79 beats per minute 97.3 deg. F - CCPD-[facility] Date Exchanges Fill Volume Exchange Solution Dialysis Access Meds-entered by patient February 21, 2024 1 of 1 - Dextrose 2.5% Peritoneal Dialysis-PD Catheter-Double Cuff Coiled, Right Upper Quadrant of Abdomen Access Placed on August 16, 2021 - Vitals Time Weight BP Heart Rate Temperature Blood Sugar February 21, 2024 (AM) 78.82 kg 118/70 mmHg 77 beats per minute 97.2 deg. F -
--- OUTSIDE RECORDS SUMMARY | 2024-02-23 07:54 | XMS_ITS | Encounter Summary ---
Author Organization [facility] Address [address] [place] [address] Care Team Providers Care Lead Generation Marketing Manager Name Role Phone Elsewhere, Pcp Primary Care Provider Unavailabl e Reason for Referral * Outpatient (Routine) - Authorized Specialty Diagnoses / Procedures Referred By Contac t Referred To Contact Diagnoses Stenosis Aortic Valve Acquired Procedures Echo Transthoracic (TTE) Sarina Miller P.A.-C., M.S. [address] [place] [phone] [facility] Referral ID Status Reason Start Date Expiration Date V isits Requested Visits Authorized [id number] Authorized 11/28/2023 11/27/2024 1 1 * Outpatient (Routine) - Authorized Specialty Diagnoses / Procedures Referred By Contac t Referred To Contact Diagnoses Stenosis Aortic Valve Acquired Procedures DX Chest AP or PA and Lateral 2 Views Sarina Miller P.A.-C., M.S. [address] [place] [phone] [facility] Referral ID Status Reason Start Date Expiration Date V isits Requested Visits Authorized [id number] Authorized 11/28/2023 11/27/2024 1 1 * Outpatient (Routine) - Authorized Specialty Diagnoses / Procedures Referred By Contac t Referred To Contact Diagnoses Stenosis Aortic Valve Acquired Procedures ECG 12 Lead Sarina Miller P.A.-C., M.S. [address] [place] [phone] [facility] Referral ID Status Reason Start Date Expiration Date V isits Requested Visits Authorized [id number] Authorized 11/28/2023 11/27/2024 1 1 * Outpatient (Routine) - Authorized Specialty Diagnoses / Procedures Referred By Contac t Referred To Contact Cardiovascular Disease Sarina Miller P.A.-C., M.S. [address] [place] [phone] [facility] Referral ID Status Reason Start Date Expiration Date V isits Requested Visits Authorized [id number] Authorized 11/28/2023 05/29/2025 1 1 * Outpatient (Routine) - Authorized Specialty Diagnoses / Procedures Referred By Contac t Referred To Contact Cardiovascular Disease Sarina Miller P.A.-C., M.S. [address] [place] [phone] CVD LAAO TODD 01 ROAL Referral ID Status Reason Start Date Expiration Date V isits Requested Visits Authorized [id number] Authorized 11/28/2023 05/29/2025 1 1 * Outpatient (Routine) - Authorized Specialty Diagnoses / Procedures Referred By Contac t Referred To Contact Diagnoses Atrial Fibrillation Paroxysmal (HCC) Procedures Echo Transesophageal (JASON) Sarina Miller P.A.-C., M.S. [address] [place] [phone] [facility] Referral ID Status Reason Start Date Expiration Date V isits Requested Visits Authorized [id number] Authorized 11/28/2023 11/27/2024 1 1 Reason for Visit * Outpatient (Routine) - Closed Specialty Diagnoses / Procedures Referred By Albino t Referred To Contact Cardiovascular Disease Diagnoses Atrial Fibrillation Paroxysmal (HCC) Sarina Miller P.A.-C., M.S. [address] [place] [address] [facility] Referral ID Status Reason Start Date Expiration Date Visits Re quested Visits Authorized [id number] Closed 06/16/2023 06/15/2026 1 1 Encounter Details Date Type Department Care Team (Latest Contact Info) Description 11/28/2023 1:00 PM CDT Telemedicine Department of Cardiovascular Medicine in [place], [place] [address] [place] [phone] Sarina Miller P.A.-C., M.S. [address] [place] [phone] Stenosis Aortic Valve Acquired (Primary Dx); Atrial [...] How often do you attend chur or orthodoxy services? More than 4 times per year 04/11/2022 Do you belong to any clubs o r organizations such as roman catholic groups, unions, fraternal [...] and heating? Not hard at all 05/13/2023 [facility] - [...] your living situation today? I have a [facility] place to live 05/13/2023 Education Answer [...] the setting of atrial fibrillation with elevated [id number] VASc of 4 with a relative contraindication [...] valve with mild aortic valve regurgitation and [id number] aortic stenosis by visual estimate on 2D imaging (recommend transthoracic echocardiogram for further evaluation as clinically indicated). 5. Moderate tricuspid valve regurgitation. There is tricuspid prolapse. 6. Due to patient's achalasia, the descending aorta was not able to be well visualized on today's examination. 7. 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 8. Agitated saline injection(s) performed during sedation no apparent [id number] shunting at theatrial level at rest or [...] (HCC) documented in this encounter Care Teams Lead Generation Marketing Manager Relationship Specialty Start Date End Date Elsewhere, Pcp PCP - General Internal Medicine 11/24/23 documented as of this encounter
--- OUTSIDE RECORDS SUMMARY | 2024-02-23 07:55 | XMS_ITS | Encounter Summary ---
Author Organization [facility] Address [address] [place] [address] Care Team Providers Care Visual Coordinator Name Role Phone Harish Silver MD Primary Care Provider [phone] Encounter Details Date Type Department Care Team (Late st Contact Info) Description 01/01/2024 Treatment [facility] [address] [place] [address] Sebastian Charles MD [address] [place] [address] Social History Tobacco Use Types [...] Dialysis Note - Sebastian Charles MD - 01/01/2024 11:16 AM CDT Date: January 01, 2024 Patient Name: David Castro : 1940 Chart #: [id number] Sex: M This patient was personally seen for a complete visit as part of routine monthly dialysis care. A review of the dialysis treatment, blood pressure, estimated dry weight, and recent lab values was made. These were discussed with the patient and staff as necessary. SOFTWOOD FALLER: Sebastian Charles MD LOCATION: [place] [phone] SCHEDULE: No Routine Schedule Subjective Tolerating dialysis well. 01/01/24: Georges is doing very well. His knee is still sore after the surgery but it is improving. He has trace edema in lower R leg below this but not on the other leg. He is 1 Kg below his dry weight, which will be updated today. He is using all 2.5% bags. Review of Systems None reported. Exam Respiratory - Clear to auscultation bilaterally. nl effort Cardiovascular - Regular rate. Regular rhythm. Gastrointestinal - Normal bowel sounds, soft, non-tender. Edema - No leg edema. trace on R below knee where surgery PD catheter exit site - looks excellent with no erythema per [employer] associatejuice scaleman List Medication Sig Start Date allopurinol 100 [...] made. Treatment and Adequacy Assessment BUN mg/dL 48 (12/25/23) 44 (12/04/23) 45 (11/03/23) CREATININE (MG/DL) IN SER/PLAS mg/dL 4.29 (12/25/23) 3.84 (12/04/23) 4.17 (11/03/23) KT/V, PERITONEAL L/wk 0.68 (11/03/23) 0.56 (07/28/23) [...] expressed interest in doing this (trip to [place] to visit family) Peritoneal Dialysis Access Assessment Placed on: 07/[address] Kaur No further leaking from PD cath site Anemia Assessment HEMOGLOBIN (G/DL) IN BLOOD g/dL 12.2 (12/25/23) 12.1 (12/04/23) 12.2 (11/03/23) PLATELETS 1000/mcL 157 (12/25/23) 127 (12/04/23) WBC (BLOOD) 1000/mcL 4.43 (12/25/23) 4.85 (12/04/23) 5.71 (11/03/23) IRON SATURATION % 29 (01/26/22) 7 (12/22/21) 12 (12/01/21) FERRITIN ng/mL 24 (12/25/23) 25 (10/02/23) 57 (06/23/23) TRANSFERRIN SAT% % 10 (12/25/23) 16 (12/04/23) 20 (11/03/23) 20 (10/02/23) 34 (08/28/23) Hemoglobin is above goal. Iron Saturation is below goal. Ferritin is below goal. Will adjust SIRISHA and intravenous iron. No SIRISHA with Hgb >11 No iron at this time is needed Nutritional and Metabolic Assessment ALBUMIN (G/DL) g/dL 3.4 (12/25/23) 3.4 (12/04/23) 3.4 (11/03/23) BICARBONATE (CO2) mEq/L 26 (12/25/23) 25 (12/04/23) 28 (11/03/23) POTASSIUM (MMOL/L) IN SER/PLAS mEq/L 3.8 (12/25/23) 4.3 (12/04/23) 4.5 (11/03/23) Sodium mEq/L 140 (12/25/23) 144 (12/04/23) 142 (11/03/23) 25 OH VITAMIN D ng/mL 39.1 (06/23/23) 30.8 (10/07/22) 17.8 (08/24/22) Albumin is below goal. Encourage high biological value protein intake. Oral nutritional supplement program. Potassium is at goal. He is on protein supplement, high protein diet, and albumin remains low but stable. Given protein drink and powder to use Bone and Mineral Metabolism Assessment CALCIUM mg/dL 8.5 (12/25/23) 8.6 (12/04/23) 8.5 (11/03/23) CALCIUM (MG/DL) CORRECTED FOR ALBUMIN IN SER/PLAS mg/dL 9.0 (12/25/23) 9.1 (12/04/23) 9.0 (11/03/23) CALCIUM PHOSPHORUS PRODUCT, COR 36 (12/25/23) 36 (12/04/23) 28 (11/03/23) PHOSPHATE (MG/DL) IN SER/PLAS mg/dL 4.0 (12/25/23) 4.0 (12/04/23) 3.1 (11/03/23) IPTH pg/mL 268 (12/25/23) 235 (10/02/23) 341 (05/31/23) Corrected calcium is at goal. Phosphorus is at goal. Intact PTH is at goal. Cardiovascular Assessment Blood pressure reviewed and is acceptable. Continue same cardiovascular medications. Estimated dry weight is too high, will decrease. He is using all 2.5% bags at this time Lower EDW by 1 Kg today Transplant [...] function excellent, no change in prescription for PD. Adequacy due soon Lower EDW by 1 Kg today Sebastian Charles MD [ Signed And locked electronically On 01/01/2024 at 11:18:33 AM ] Transcribed: Sebastian Charles ( 01/01/2024 ) documented in this encounter Plan of Treatment Not on file documented as of this encounter Visit Diagnoses Not on filedocumented in this encounter Care Teams Visual Coordinator Relationship Specialty Start Date End Date Harish Silver MD [address] [place] [address] PCP - General 05/17/19 documented as of this encounter
--- OUTSIDE RECORDS SUMMARY | 2024-02-23 07:55 | XMS_ITS | Encounter Summary ---
Author Organization [facility] Address [address] [place] [address] Care Team Providers Care Asphalt Plant Worker Name Role Phone Harish Silver MD Primary Care Provider [phone] Encounter Details Date Type Department Care Team (Late st Contact Info) Description 12/08/2023 Treatment [facility] [place] [address] [place] [address] Sebastian Charles MD [address] [place] [address] Social History Tobacco Use Types [...] Dialysis Note - Sebastian Charles MD - 12/08/2023 1:51 PM CDT Date: Dec 08, 2023 Patient Name: David Castro : 1940 Chart #: [id number] Sex: M This patient was personally seen for a complete visit as part of routine monthly dialysis care. A review of the dialysis treatment, blood pressure, estimated dry weight, and recent lab values was made. These were discussed with the patient and staff as necessary. BOTTLE LABEL INSPECTOR: Sebastian Charles MD LOCATION: [place] [phone] SCHEDULE: No Routine Schedule Subjective Tolerating dialysis well. 12/08/23: He is doing well. But he had meniscus repair of his R knee yesterday and he got IVF's withthis and is over his dry weight. He has edema related to this. Denies CP or SOB or orthopnea. PD without any recent changes otherwise and he feels things are going well. Review of Systems None reported. Exam Respiratory - Clear to auscultation bilaterally. Cardiovascular - Regular rate. Regular rhythm. Gastrointestinal - Normal bowel sounds, soft, non-tender. Edema - 1+ leg edema. PD catheter exit site - looks excellent with no erythema per transitional living specialistnutritionalist List Medication Sig Start Date allopurinol 100 [...] 1 tablet by mouth twice a day RenaPlex-D (vit b,g-oc-fiaw-selen-vit d3-e) 800 mcg-12.5 mg-2,000 unit tablet Take 1 tablet by mouth every night 12/08/2023 torsemide 20 mg tablet Take 1 tablet by mouth once a day Allergy List Allergen Reaction Reaction Severity Onset Date Tegretol Unknown Medications reviewed and no changes were made. Treatment and Adequacy Assessment BUN mg/dL 44 (12/04/23) 45 (11/03/23) 44 (10/02/23) CREATININE (MG/DL) IN SER/PLAS mg/dL 3.84 (12/04/23) 4.17 (11/03/23) 4.07 (10/02/23) KT/V, PERITONEAL L/wk 0.68 (11/03/23) 0.56 (07/28/23) [...] expressed interest in doing this (trip to [place] to visit family) Peritoneal Dialysis Access Assessment Placed on: 07/[address] Kaur No further leaking from PD cath site Anemia Assessment HEMOGLOBIN (G/DL) IN BLOOD g/dL 12.1 (12/04/23) 12.2 (11/03/23) 12.4 (10/02/23) PLATELETS 1000/mcL 127 (12/04/23) WBC (BLOOD) 1000/mcL 4.85 (12/04/23) 5.71 (11/03/23) 6.25 (10/02/23) IRON SATURATION % 29 (01/26/22) 7 (12/22/21) 12 (12/01/21) FERRITIN ng/mL 25 (10/02/23) 57 (06/23/23) 66 (05/31/23) TRANSFERRIN SAT% % 16 (12/04/23) 20 (11/03/23) 20 (10/02/23) 34 (08/28/23) 25 (07/21/23) Hemoglobin is above goal. Iron Saturation is at goal. Ferritin is below goal. Will adjust SIRISHA and intravenous iron. No SIRISHA with Hgb >11 No iron at this time is needed Nutritional and Metabolic Assessment ALBUMIN (G/DL) g/dL 3.4 (12/04/23) 3.4 (11/03/23) 3.3 (10/02/23) BICARBONATE (CO2) mEq/L 25 (12/04/23) 28 (11/03/23) 29 (10/02/23) POTASSIUM (MMOL/L) IN SER/PLAS mEq/L 4.3 (12/04/23) 4.5 (11/03/23) 3.9 (10/02/23) Sodium mEq/L 144 (12/04/23) 142 (11/03/23) 140 (10/02/23) 25 OH VITAMIN D ng/mL 39.1 (06/23/23) 30.8 (10/07/22) 17.8 (08/24/22) Albumin is below goal. Encourage high biological value protein intake. Oral nutritional supplement program. Potassium is at goal. He is on protein supplement, high protein diet, and albumin remains low but stable. Given protein drink and powder to use Bone and Mineral Metabolism Assessment CALCIUM mg/dL 8.6 (12/04/23) 8.5 (11/03/23) 8.6 (10/02/23) CALCIUM (MG/DL) CORRECTED FOR ALBUMIN IN SER/PLAS mg/dL 9.1 (12/04/23) 9.0 (11/03/23) 9.2 (10/02/23) CALCIUM PHOSPHORUS PRODUCT, COR 36 (12/04/23) 28 (11/03/23) 33 (10/02/23) PHOSPHATE (MG/DL) IN SER/PLAS mg/dL 4.0 (12/04/23) 3.1 (11/03/23) 3.6 (10/02/23) IPTH pg/mL 235 (10/02/23) 341 (05/31/23) 252 (02/23/23) Corrected calcium is at goal. Phosphorus is at goal. Intact PTH is at goal. Cardiovascular Assessment Blood pressure reviewed and is acceptable. Continue same cardiovascular medications. Estimated dry weight is too low, will increase. Increase EDW by 2 Kg today (he is 4 Kg over due to IVF's with surgery yesterday and he will use 2.5% as needed to bring weight back down) Use 2.5% bags with every 3rd day [...] excellent, no change in prescription for PD Increase EDW by 2 Kg today Sebastian Charles MD [ Signed And locked electronically On 12/08/2023 at 02:01:28 PM ] Transcribed: Sebastian Charles ( 12/08/2023 ) documented in this encounter Plan of Treatment Not on file documented as of this encounter Visit Diagnoses Not on filedocumented in this encounter Care Teams Asphalt Plant Worker Relationship Specialty Start Date End Date Harish Silver MD [address] [place] [address] PCP - General 05/17/19 documented as of this encounter
--- OUTSIDE RECORDS SUMMARY | 2024-02-23 07:55 | XMS_ITS | Continuity of Care Document ---
Author Organization [facility] Address [address] [address] [place] [address] Phone Care Team Providers Care Historic Sites Registrar Name Role Phone Kimo Adams MD Unavailable Unavailable Allergies, Adverse Reactions, Alerts Substance Reaction Status Criticality propafenone fluid around heart Active No Inform ation furosemide Reaction Unknown Active No Informat ion carbamazepine Adverse reaction Active No Informa tion Medications Medication Instructions Dosage Effective Dates (start - stop) Status Comments torsemide 20 mg tablet take 1 tablet by oral route every day 20 MG - Active warfarin 2 mg tablet take 1 tablet by or al route 5 times every week, 0.5 tablets 2 days per week - Active allopurinol 100 mg tablet take 1 tablet by oral route every day 100 MG - Active isosorbide dinitrate 5 mg tablet take 1 tablet by oral route 3 times every day as needed 5 MG - Active metoprolol tartrate 25 mg tablet take 1 tablet by oral route 2 times every day 25 MG - Active amlodipine 5 mg tablet take 1 tablet by oral route every day 5 MG - Active amoxicillin 500 mg capsule take 4 capsule by oral route every day if needed for procedures 2000 MG - Active calcitriol 0.25 mcg capsule take 1 capsule by oral route 3 times every week 0.25 MCG - Active hydralazine 10 mg tablet take 1 tablet by oral route 3 times every day with food 10 MG - Active omeprazole 20 mg delayed release,disintegratin g tablet take 1 tablet by oral route every day 1 tablet - Active Procedures Procedure Date Ugi Endo; W/bx 1/mx Level Iv-surg Path Gross/micro 21 Ugi Endo; W/balloon Dilat Esop 21 Ugi Endo; W/bx 1/mx Level Iv-surg Path Gross/micro Esophageal Motility Study Init Hosp-da E&m Mod Severity 1 Ugi Endo; W/contrl Bleed Any M 21 Offic/outpt E&m New Mod Sever 9 Advance Directives Directive Yes / No Effective Date File Name No Information Encounters Encounter Description Practice Location Reason(s) For Visit Diagnoses Date Provider Providers Copied on Encounter [facility], [address] [address], [place], [place], [id number], [place] tel:[phone] [facility] No Information 2 Bryan Malin. [address], [facility] [address], [place], [id number], [place]. tel:[phone] [facility], [address] [address], [place], [place], [id number], [place] tel:[phone] Leatha [facility] AchalasiaHema temesisAchala satya of cardia 1 Asad Hutton. [address], [facility] [address], [place], [address], [place]. tel:[phone] Referring Provider: Clayton Diaz MD, [address], [place], [address]. tel:[phone] [facility], [address] [address], [place], [place], [id number], [place] tel:[phone] [facility] Achalasia of cardiaGastro- esophageal reflux disease with esophagitis, without bleedingOth congenital malformations of upper alimentary tractAchalasi a of cardia 1 Bryan Malin. [address], [place], [place], [address], [place]. tel:[phone] Referring Provider: Clayton Diaz MD, [address], [place], [address]. tel:[phone] [facility], [address] [address], [facility] [place], [id number], [place] tel:[phone] [facility] No Information 1 Bryan Malin. [address], [place], [address], [place]. tel:[phone] [facility], [address] [address], [place], [address], [place] tel:[phone] [facility] GI Symptoms or Concerns (chief complaint) Achalasia 1 Gerri Robertson. [address], [facility] [address], [place], [address], [place]. tel:[phone] Referring Provider: Clayton Diaz MD, [address], [place], [address]. tel:[phone] In Hosp-da E&m Mod Severity [facility], [address] [address], [employer] [place] [place], [address], [place] tel:[phone] [facility] No Information 1 Rima Drew. [address], [facility] [address], [place], [address], [place]. tel:[phone] Referring Provider: Viki Gunter, [address], [place], [address]. tel:[phone] [facility], [address] [address], [facility] [place], [address], [place] tel:[phone] [facility] Achalasia 1 Rima Drew. [address] [place] [address], [facility] [address], [place], [address], [place]. tel:[phone] Offic/outpt E&m New Mod Sever [facility], [address] [address], [place], [place], [address], [place] tel:[phone] [facility] GI Symptoms or Concerns (chief complaint) Achalasia 9 Lisa Galeas. [address], [place], [place], [address], [place]. tel:[phone] Referring Provider: Kush Blevins, [address], [place], [address]. tel:[phone] Family History Family Member Type Diagnosis Age At Onset Mother Problem (finding) Parkinson's disease Sister Problem (finding) Alive and well Brother Problem (finding) Alive and well Father Problem (finding) alcoholism Son Problem (finding) Alive and well Immunizations Vaccine Date Status Comments SARS-COV-2 (COVID-19) vaccin e, mRNA, spike protein, LNP, preservative free, 30 mcg/0.3mL dose administered Note: [facility] bi-direct ional interface ; Source: Other Registry SARS-COV-2 (COVID-19) vaccin e, mRNA, spike protein, LNP, preservative free, 30 mcg/0.3mL dose administered Note: [facility] bi-direct ional interface ; Source: Other Registry influenza, seasonal vaccine, quadrivalent, adjuvanted, .5mL dose, preservative free administered Note: [facility] bi-di rectional interface ; Source: Other Registry Seasonal trivalent influenza vaccine, adjuvanted, preservative free administered Note: [facility] bi-direct ional interface ; Source: Other Registry zoster vaccine recombinant administered N ote: [facility] bi-directional interface ; Source: Other Registry zoster vaccine recombinant administered N ote: [facility] bi-directional interface ; Source: Other Registry Afluria Qd administered Note: [facility] bi-directional interface ; Source: Other Registry Seasonal trivalent influenza vaccine, adjuvanted, preservative free administered Note: [facility] bi-direct ional interface ; Source: Other Registry influenza, high dose seasona l, preservative-free administered Note: [facility] bi-direct ional interface ; Source: Other Registry influenza, high dose seasona l, preservative-free administered Note: [facility] bi-direct ional interface ; Source: Other Registry Prevnar 13 administered Note: [facility] bi-d irectional interface ; Source: Other Registry tetanus toxoid, reduced diphtheria toxoid, and acellular pertussis vaccine, adsorbed administered Note: [facility] b i-directional interface ; Source: Other Registry influenza, high dose seasona l, preservative-free administered Note: [facility] bi-direct ional interface ; Source: Other Registry Influenza, seasonal, injecta ble, preservative free administered Note: [facility] bi-direct ional interface ; Source: Other Registry Influenza, seasonal, injecta ble, preservative free administered Note: [facility] bi-direct ional interface ; Source: Other Registry zoster vaccine, live administered Note: [facility] bi-directional interface ; Source: Other Registry Pneumovax 23 administered Note: [facility] bi-d irectional interface ; Source: Other Registry Engerix-B administered Note: [facility] bi-d irectional interface ; Source: Other Registry Engerix-B administered Note: [facility] bi-d irectional interface ; Source: Other Registry Energix Pediatric administered Note: [facility] bi-directional interface ; Source: Other Registry tetanus and diphtheria toxoi ds, adsorbed, preservative free, for adult use (5 Lf of tetanus toxoid and 2 Lf of diphtheria toxoid) administered Note: [facility] bi-direct ional interface ; Source: Other Registry Influenza, seasonal, injectable administe red Note: [facility] bi- directional interface ; Source: Other Registry Influenza, seasonal, injectable administe red Note: [facility] bi- directional interface ; Source: Other Registry Influenza, seasonal, injectable administe red Note: [facility] bi- directional interface ; Source: Other Registry Payers Payer name Insurance type Covered republican ID Wallace sanders(s) [employer] Medicare Advantage [id number] [facility] [id number] Social History Type Description Quantity Date Captured Comments Sex Male Smoking Status No Information Chief Complaint And Reason For Visit No Information Reason For Referral Reason For Referral No Information Plan Of Treatment Date Type Action Status Referral Ordered: follow-up visit with Esophagus clinic ordered Referral Ordered: referred to Clayton Diaz MD Surgery achalasia, ?esophagectomy ?J tube Appointment date/timeframe: 11/10/2020 ordered History Of Present Illness Encounter Date Complaint History Of Prese nt Illness GI Symptoms or Concerns GI Symptoms or Concerns Mr. Irlanda bejarano is a 78-year-old male who presents to Esophageal Clinic today for the first time to discuss dysphagia and a long history of achalasia. We were asked to see him in consultation by Dr. Doran. Patient reports that he has had dysphagia for over 50 years and was diagnosed with achalasia in the 1960s. [facility]. He has been managing his dysphagia symptoms rather well over the last few decades; however, over the last year it appears his symptoms have worsened. He has undergone workup at the [facility] and reports undergoing an EGD in February and then having a repeat EGD with pneumatic balloon dilation about 3 weeks ago at their facility. Since the balloon dilation, he was admitted at [facility] and due to complaints of dysphagia at that time underwent an esophagram. He was told he had an extremely dilated esophagus and that contrast took over an hour to pass from his esophagus into his stomach. It was then recommended Functional Status Date Functional Assessmen t No Information Instructions Date Instruction Additional Infor mation No Information Assessments Type Assessment Date No Information Patient Care Teams Name Effective Dates (start - stop) Status Members No Information
--- OUTSIDE RECORDS SUMMARY | 2024-02-23 07:55 | XMS_ITS | Encounter Summary ---
Author Organization [facility] Address [address] [place] [address] Care Team Providers Care Industrial Property Appraiser Name Role Phone Harish Silver MD Primary Care Provider [phone] Encounter Details Date Type Department Care Team (Late st Contact Info) Description 12/04/2023 Orders Only [facility] [place] [address] [place] [address] Sebastian Charles MD [address] [place] [address] Social History Tobacco Use Types [...] 12/04/2023 12/05/2023 12: 45 PM CDT Narrative [facility] - 12/05/2023 Unless otherwise specified, test(s) performed at: [facility], [address] [place] [address], [place] [address] PRIME BROKER: Dariel Doyle M.D., Ph.D For any questions, please call customer service at FREQUENCY:MONTHLY Resulting Agency Comment Specimen source: Serum Sebastian Charles MD LAB BLOOD ORDERABLES [facility] See order comments or contact [...] 12/05/2023 Unless otherwise specified, test(s) performed at: [facility], [address] [place] [address], [place] [address] PRIME BROKER: Dariel Doyle M.D., Ph.D For any questions, please call customer service at FREQUENCY:MONTHLY Resulting Agency Comment Specimen source: Blood Sebastian Charles MD LAB BLOOD ORDERABLES [facility] See order comments or contact performing lab Unknown, [place] documented in this encounter Visit Diagnoses Not on filedocumented in this encounter Care Teams Industrial Property Appraiser Relationship Specialty Start Date End Date Harish Silver MD [address] [place] [address] PCP - General 05/17/19 documented as of this encounter
--- OUTSIDE RECORDS SUMMARY | 2024-02-23 07:55 | XMS_ITS | Encounter Summary ---
Author Organization [facility] Address [address] [place] [address] Care Team Providers Care Freight Hustler Name Role Phone Harish Silver MD Primary Care Provider [phone] Encounter Details Date Type Department Care Team (Late st Contact Info) Description 12/25/2023 Orders Only [facility] [place] [address] [place] [address] Sebastian Charles MD [address] [place] [address] Social History Tobacco Use Types [...] Priority Date/Time Associated Diagnosis Comments HEMATOLOGY Routine 12/25/2023 CHEMISTRY Routine 12/25/2023 CHEMISTRY Routine 12/25/2023 documented in this encounter Results * (ABNORMAL) [facility] (12/25/2023) PTH 268(H) 16 - 80 pg/mL Taigen 12/25/2023 12/26/2023 12: 52 PM CDT Narrative [facility] - 12/26/2023 Unless otherwise specified, test(s) performed at: [facility], [address] [place] [address] ENGINEER STEAM: Dariel Doyle M.D., Ph.D For any questions, please call customer service at FREQUENCY:MONTHLY Resulting Agency Comment Specimen source: Plasma Sebastian Charles MD LAB BLOOD ORDERABLES [facility] See order comments or contact performing lab Unknown, [place] * (ABNORMAL) [facility] (12/25/2023) BUN 48(H) 6 - 19 mg/dL [facility] Creatinine 4.29(H) 0.60 - 1.30 mg/dL [facility] BUN/Creatinine Ratio 11.2 10.0 - 20.0 [facility] Sodium 140 136 - 145 mEq/L [facility] Potassium 3.8 3.5 - 5.1 mEq/L [facility] Chloride 105 96 - 108 mEq/L [facility] Bicarbonate (CO2) 26 20 - 31 mEq/L [facility] Calcium 8.5(L) 8.7 - 10.4 mg/dL [facility] Comment: Please note change in reference range. Corrected Calcium 9.0 8.7 - 10.4 mg/dL [facility] Comment: Corrected Calcium is not equivalent to measured Ionized Calcium. Phosphorus 4.0 2.6 - 4.5 mg/dL [facility] Calcium Phosphorus Product 34 0 - 54 [facility] Calcium Phosporus Product, Cor 36 0 - 54 [facility] Alkaline Phosphatase 287(H) 40 - 129 U/L [facility] Albumin 3.4(L) 3.5 - 5.2 g/dL [facility] Glucose 104(H) 70 - 100 mg/dL [facility] Magnesium 1.9 1.6 - 2.6 mg/dL [facility] Ferritin 24 22 - 322 ng/mL [facility] Iron 31(L) 45 - 160 mcg/dL [facility] UIBC 265 155 - 355 mcg/dL [facility] TIBC 296 185 - 515 mcg/dL [facility] Iron Saturation (TSat) 10(L) 20 - 55 % [facility] 12/25/2023 12/26/2023 12: 59 PM CDT Narrative [facility] - 12/26/2023 Unless otherwise specified, test(s) performed at: [facility], [address] [place] [address], [place] [address] ENGINEER STEAM: Dariel Doyle M.D., Ph.D For any questions, please call customer service at FREQUENCY:MONTHLY Resulting Agency Comment Specimen source: Serum Sebastian Charles MD LAB BLOOD ORDERABLES [facility] See order comments or contact performing lab Unknown, [place] * (ABNORMAL) HEMATOLOGY (12/25/2023) Neutrophils 76.5(H) 40.0 - 75.0 % [facility] Lymphocytes Relative 5.4(L) 19.0 - 48.0 % [facility] Monocytes 5.7 3.0 - 10.0 % [facility] Eosinophils Relative 8.5(H) 0.0 - 7.0 % [facility] Basophils Relative 1.6(H) 0.0 - 1.5 % [facility] JUAN [place]IO 2.4 0.0 - 4.0 % [facility] WBC 4.43(L) 4.80 - 10.80 1000/mcL [facility] RBC 3.61(L) 4.70 - 6.10 mill/mcL [facility] Hematocrit 37.8(L) 42.0 - 52.0 % [facility] MCV 105(H) 80 - 100 fl [facility] MCH 33.7(H) 27.0 - 31.0 pg [facility] MCHC 32.2 30.0 - 36.0 g/dL [facility] RDW 13.7 11.5 - 14.5 % [facility] Hemoglobin 12.2(L) 14.0 - 18.0 g/dL [facility] Hemoglobin x 3 36.6(L) 42.0 - 54.0 % [facility] Platelets 157 130 - 400 1000/mcL [facility] 12/25/2023 12/26/2023 12: 59 PM CDT Narrative [facility] - 12/26/2023 Unless otherwise specified, test(s) performed at: [facility], [address] [place] [address], [place] [address] ENGINEER STEAM: Dariel Doyle M.D., Ph.D For any questions, please call customer service at FREQUENCY:MONTHLY Resulting Agency Comment Specimen source: Blood Sebastian Charles MD LAB BLOOD ORDERABLES [facility] See order comments or contact performing lab Unknown, [place] documented in this encounter Visit Diagnoses Not on filedocumented in this encounter Care Teams Freight Hustler Relationship Specialty Start Date End Date Harish Silver MD [address] [place] [address] PCP - General 05/17/19 documented as of this encounter
--- OUTSIDE RECORDS SUMMARY | 2024-02-23 07:55 | XMS_ITS | Encounter Summary ---
Author Organization [facility] [place] Address [address] [place] [address] Care Team Providers Care Hand Weaver Name Role Phone Harish Silver MD Primary Care Provider [phone] Encounter Details Date Type Department Care Team (Late st Contact Info) Description 01/31/2024 Orders Only [facility] [address] [place] [address] Sebastian Charles MD [address] [place] [address] Social History Tobacco Use Types [...] Priority Date/Time Associated Diagnosis Comments HEMATOLOGY Routine 01/31/2024 CHEMISTRY Routine 01/31/2024 documented in this encounter Results * (ABNORMAL) [facility] (01/31/2024) BUN 58(H) 6 - 19 mg/dL [facility] Creatinine 4.48(H) 0.60 - 1.30 mg/dL [facility] BUN/Creatinine Ratio 12.9 10.0 - 20.0 [facility] Sodium 143 136 - 145 mEq/L [facility] Comment: Verified by repeat analysis. Potassium 3.8 3.5 - 5.1 mEq/L [facility] Chloride 106 96 - 108 mEq/L [facility] Bicarbonate (CO2) 30 20 - 31 mEq/L [facility] Calcium 8.8 8.7 - 10.4 mg/dL [facility] Comment: Please note change in reference range. Corrected Calcium 9.1 8.7 - 10.4 mg/dL [facility] Comment: Corrected Calcium is not equivalent to measured Ionized Calcium. Phosphorus 3.7 2.6 - 4.5 mg/dL [facility] Calcium Phosphorus Product 33 0 - 54 [facility] Calcium Phosporus Product, Cor 34 0 - 54 [facility] Albumin 3.6 3.5 - 5.2 g/dL [facility] Glucose 107(H) 70 - 100 mg/dL [facility] Iron 33(L) 45 - 160 mcg/dL [facility] UIBC 298 155 - 355 mcg/dL [facility] TIBC 331 185 - 515 mcg/dL [facility] Iron Saturation (TSat) 10(L) 20 - 55 % [facility] 01/31/2024 02/01/2024 12: 44 PM CDT Narrative [facility] - 02/01/2024 Unless otherwise specified, test(s) performed at: [facility], [address] [place] [address], [place] [address] [employer] MACHINE OPERATOR: Dariel Doyle M.D., Ph.D For any questions, please call customer service at FREQUENCY:MONTHLY Resulting Agency Comment Specimen source: Serum Sebastian Charles MD LAB BLOOD ORDERABLES [facility] See order comments or contact performing lab Unknown, [place] * (ABNORMAL) HEMATOLOGY (01/31/2024) Neutrophils 70.8 40.0 - 75.0 % [facility] [...] 02/01/2024 Unless otherwise specified, test(s) performed at: [facility], [address] [place] [address], [place] [address] [employer] OPERATOR: Dariel Doyle M.D., Ph.D For any questions, please call customer service at FREQUENCY:MONTHLY Resulting Agency Comment Specimen source: Blood Sebastian Charles MD LAB BLOOD ORDERABLES [facility] See order comments or contact performing lab Unknown, [place] documented in this encounter Visit Diagnoses Not on filedocumented in this encounter Care Teams Hand Weaver Relationship Specialty Start Date End Date Harish Silver MD [address] [place] [address] PCP - General 05/17/19 documented as of this encounter
--- NOTE | 2024-02-23 08:15 | MR_ITS ---
[facility] [address] [facility] [address] Phone:?[phone] Fax:?[phone] Referring Physician Information: Jesus Mejia M.D. [address] [place] [address] Phone:[phone] Fax:?[phone] Patient:Jez Castro D.O.B:?1940 Sex:?Male Phone:?[phone] [facility] MRN:?[id number] Exam Date:?02/23/2024 EXAM: MRI of the RIGHT KNEE, without contrast CLINICAL: Right knee pain. COMPARISONS: MRI 11/02/2023. X-rays 02/05/2024. TECHNICAL: Multiplanar multisequence MRI of the right knee was obtained. SEDATION: None. CONTRAST: None. FINDINGS: Ligaments: ACL: Intact and unremarkable. PCL: Intact and unremarkable. MCL: There is irregularity and partial tearing of the proximal superficial MCL consistent with grade 2 sprain injury, new compared to prior exam. LCL: Intact and unremarkable. Posterolateral corner: Popliteus, biceps femoris, iliotibial band, and the popliteofibular ligament appear intact. Posteromedial corner: Semimembranosus, pes anserine tendons and posterior oblique ligament appear intact. Extensor mechanism: Patellar tendon: Intact, without tendinopathy. Quadriceps tendon: Intact, without tendinopathy. Retinacula: Medial and lateral retinacula are intact. Patellofemoral joint: Patella: There is heterogeneity of the patellar cartilage with scattered deep chondral fissuring seen to involve the medial facet and patellar median ridge, increased compared to prior exam. Trochlea: No significant chondromalacia. Medial compartment: Medial meniscus: There is attenuation and complex tearing throughout the posterior horn extending into the posterior root similar to prior examination. Attenuation and complex tearing also involves the body segment as seen on prior exam, with interval increased attenuation of the body segment which may reflect postoperative change. Medial cartilage: Chondral thinning involving the peripheral medial femoral condyle and peripheral medial tibial plateau appears similar to prior examination. No new chondral defects identified. Lateral compartment: Lateral meniscus: Tearing of the posterior horn appears similar to prior examination. There is interval increased free edge blunting of the body segment. No meniscal displacement. Lateral cartilage: No significant chondromalacia. Knee joint: Effusion: Small right knee effusion. Intra-articular bodies:?No convincing bodies identified. Popliteal cyst: Small, similar to prior exam. Bones: There is minimal marrow edema involving the peripheral medial femoral condyle, new compared to prior exam. No evidence of fracture. IMPRESSION: 1. Grade 2 sprain injury involving the proximal superficial MCL, new compared to prior exam. 2. Suspect sequelae of prior partial meniscectomy and complex tearing involving the posterior horn extending into the posterior root medial meniscus similar to prior examination. Sequelae of prior tearing is also seen to involve the body segment medial meniscus as seen on prior examination, with interval increased attenuation of the body segment medial meniscus which may reflect new postoperative change. 3. Free edge blunting involving the body segment lateral meniscus is new compared to prior exam and may be postoperative in nature. Tearing of the posterior horn lateral meniscus appears similar to prior exam. 4. Minimal marrow edema involving the peripheral medial femoral condyle may be reactive versus mild stress-related change. No evidence of fracture. 5. Scattered chondral fissuring involving the patella, increased compared to prior exam. 6. Small joint effusion and small popliteal cyst. [facility] Electronically signed on 02/23/2024 9:59:00 AM by Raghu Burns D.O.
== END 2024-02-23 07:52 | disposition home or self-care (01) ==
LOC: MRI 07:51
PROVIDERS: PCP Family Medicine; Visit Provider Orthopaedic Surgery
DX: M25.561 Pain in right knee (principal); S83.411A Sprain of medial collateral ligament of right knee, initial encounter; M23.203 Derangement of unspecified medial meniscus due to old tear or injury, right knee; M23.251 Derangement of posterior horn of lateral meniscus due to old tear or injury, right knee; M25.461 Effusion, right knee; Z98.890 Other specified postprocedural states
CPT/HCPCS: 73721

== ENCOUNTER 2024-03-01 12:24 | Emergency (ER) | payer MEDICARE, OTHER, SELFPAY ==
[2024-03-01] VITALS (34 sets, daily range): BP systolic 114–145; BP diastolic 65–84; PULSE 56–80; RESP 16; TEMP 36.2; O2SAT 83–100; BMI 26.4
--- NOTE | 2024-03-01 12:47 | ED_ITS ---
HPI - General Adult General Date Seen: 03/01/24 Chief complaint: Weakness Stated complaint: left side not working Time Seen by Provider: 03/01/24 12:46 History of Present Illness HPI narrative: This is a very pleasant 83-year-old gentleman accompanied to the ER today by his from home for evaluation of left-sided weakness and falling out of bed this morning. He has a complex past medical history which includes hypertension, paroxysmal AFib (had a Watchman device placed at [facility] in September. Was told to continue his Eliquis until he ran out. He ran out of Eliquis and stopped it 3 days ago. 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 According to records he was recently at [facility] and had a Watchman device placed. Apparently his alcohol also showed moderate to severe aortic stenosis and regurgitation Current med list through [facility] includes Allopurinol Apixaban Metoprolol Torsemide Calcitriol Vitamin D Colace Pepcid Pantoprazole He has been in his usual state of health lately. He does do peritoneal dialysis every night. He was healthy yesterday and actually went out to lunch with his and his son to celebrate his 60 anniversary. He was normal yesterday evening when he went to bed. He does get up at night to make urine (even though he is a dialysis patient) and he was up at about 1 or 130 this morning to urinate and apparently had no symptoms at that time. He slept in this morning until about 7:00 a.m. which is later than normal and at 7 when he rolled over in bed to try to turn off his peritoneal dialysis mean she knew he fell out of bed. He thinks that he probably was just too close to the edge. He landed on the floor and did bruise his right elbow but did not suffer any other injuries from the fall. However he was too weak and he was not able to pull himself up to get off the floor. His had to help him up. After getting up he did try to walk into the bathroom but was unsteady and falling to his left. suspects that he probably was having stroke symptoms affecting his left side at that time. She encouraged him to come right in the hospital but he wanted to stay home and wait. This morning his has noticed that he has had a little bit of left facial droop, some trouble speaking, and weakness on his left side with trouble walking and unsteadiness. Finally at around 1 she agreed to come to the doctor. He stopped taking Eliquis 3 days ago. He has a history of AFib and had a Watchman device placed at [facility] in September. He was told to continue all of his Eliquis until he ran out. He finally ran out 3 days ago and stopped. He is now on clopidogrel. 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 Apparently imaging preoperatively suggest it was a tumor but in the OR it was discovered to be a brain abscess, not a tumor. Related Data Home Medications ?Medication ?Instructions ?Recorded ?Confirmed allopurinol 100 mg tablet 100 mg DAILY 03/31/22 02/28/24 calcitriol 0.25 mcg capsule 0.25 mcg 03/31/22 02/28/24 docusate sodium 100 mg tablet 100 mg PO HS 03/31/22 02/28/24 metoprolol tartrate 25 mg tablet 25 mg BID 03/31/22 02/28/24 torsemide 20 mg tablet 20 mg DAILY 03/31/22 02/28/24 vitamin B complex-vitamin C 100 1 tab Q24H 03/31/22 02/28/24 mg-folic acid 1 mg tablet (Dialyvite) pantoprazole 40 mg tablet,delayed 40 mg PO DAILY 06/05/22 02/28/24 release famotidine 20 mg tablet 20 mg PO DAILY 10/30/23 02/28/24 amoxicillin 500 mg capsule mg PO dental pre-med 11/06/23 02/28/24 clopidogrel 75 mg tablet 75 mg PO DAILY 03/01/24 03/01/24 Allergies Allergy/AdvReac Type Severity Reaction Status Date / Time carbamazepine [From Tegretol] Allergy Verified 02/28/24 15:02 city water Allergy Mild Hives Uncoded 02/28/24 15:02 [facility] Medical History (Updated 03/01/24 @ 19:00 by Crow Whitten MD) Presence of Watchman left atrial appendage closure device ?Z95.818 - Presence of other cardiac implants and grafts (ICD-10) History of intracranial abscess ?Z86.61 - Personal history of infections of the central nervous system (ICD- 10) Anxiety ?F41.9 - Anxiety disorder, unspecified (ICD-10) Hypothyroidism ?E03.9 - Hypothyroidism, unspecified (ICD-10) HTN (hypertension) ?I10 - Essential (primary) hypertension (ICD-10) Gout ?M10.9 - Gout, unspecified (ICD-10) ELENI (obstructive sleep apnea) ?G47.33 - Obstructive sleep apnea (adult) (pediatric) (ICD-10) Osteopenia ?M85.80 - Other specified disorders of bone density and structure, unspecified site (ICD-10) Afib ?I48.91 - Unspecified atrial fibrillation (ICD-10) Heart failure ?I50.9 - Heart failure, unspecified (ICD-10) Achalasia ?K22.0 - Achalasia of cardia (ICD-10) Surgical History (Updated 12/13/23 @ 10:00 by Raphael Mcdaniel) History of meniscectomy of right knee (12/07/23) ?Z98.890 - Other specified postprocedural states (ICD-10) H/O brain surgery ?Z98.890 - Other specified postprocedural states (ICD-10) History of esophageal surgery ?Z98.890 - Other specified postprocedural states (ICD-10) History of incision and drainage ?Z98.890 - Other specified postprocedural states (ICD-10) History of appendectomy ?Z90.49 - Acquired absence of other specified parts of digestive tract (ICD- 10) S/P arthroscopic partial medial meniscectomy of right knee (05/20/11) ?Z98.890 - Other specified postprocedural states (ICD-10) ?Z87.828 - Personal history of other (healed) physical injury and trauma (ICD-10) History of phacoemulsification of cataract of right eye with intraocular lens implantation ?Z98.41 - Cataract extraction status, right eye (ICD-10) ?Z96.1 - Presence of intraocular lens (ICD-10) History of phacoemulsification of cataract of left eye with intraocular lens implantation ?Z98.42 - Cataract extraction status, left eye (ICD-10) ?Z96.1 - Presence of intraocular lens (ICD-10) Social History Narrative: -Cynthia former smoker-1960 Smoking Status: Former smoker What tobacco products do you use: cigarettes Smoking quit date/years: >15 years ago Do you use any of these nicotine containing products: None Second hand tobacco smoke exposure: No How often do you have a drink containing alcohol: never How often do you have six or more drinks on one occasion: Never AUDIT-C Alcohol total score: 0 Non-prescribed substance use: denies use Caffeine: Yes Exam Narrative: Exam Narrative: Primary Survey: A- patent. Speaking clearly. Phonation normal. No stridor. B- breathing easily. Lung sounds clear and equal. Oxygen saturation normal on room air C- no active bleeding. Blood pressure stable. Symmetric pulses and cap refill in 4 extremities. D- alert and oriented x3. GCS 15. Constitutional: Appears well-developed and well-nourished. Alert. Conversant. Non toxic. HENT: Head: Atraumatic. Nose: Nose normal. Mouth/Throat: Oral mucosa is clear and moist. no trismus. Pharynx normal. Tonsils symmetric. No tonsillar enlargement, erythema, or exudate. Eyes: Conjunctivae normal. EOM normal. Pupils equal, round, and reactive to light. No scleral icterus. Neck: Normal range of motion. Neck supple. No tracheal deviation present. Cardiovascular: Normal rate, regular rhythm. No gallop. No friction rub. No murmur heard. Symmetric radial artery pulses Pulmonary/Chest: Effort normal. No stridor. No respiratory distress. No wheezes. No rales. No rhonchi . No tenderness. Abdominal: Soft. Bowel sounds normal. No distension. No mass. No tenderness. No rebound. No guarding. Musculoskeletal: No C, T, L-spine tenderness. RUE: Normal range of motion. Ecchymosis over the right lateral elbow but no b deysi tenderness. Normal flexion and extension of the elbow. Normal pronation/supination of the elbow. Shoulder and wrist are nontender. No deformity LUE: Normal range of motion. No tenderness. No deformity RLE: Normal range of motion. No edema. No tenderness. No deformity LLE: Normal range of motion. No edema. No tenderness. No deformitythy. Neurological: Alert and oriented to person, place, and time. Normal strength. CN II-VII intact. No sensory deficit. GCS eye subscore is 4. GCS verbal subscore is 5. GCS motor subscore is 6. Normal coordination Mental status normal. Attention normal. Alert and oriented x3. GCS 15. Memory normal. Speech fluent. Cognition normal. Cranial Nerves intact II-XII except I did not formally test gag or visual acuity. EOMI. Palate elevates symmetrically and tongue protrudes in the midline. Strength: Strength 5/5 on the right side in the deltoid, trapezius, biceps, triceps, labour market economist, finger abduction, thumb extension. Strength 5/5 on the right side in the hip flexors, quadriceps, hamstring, gastrocnemius, tibialis anterior. Strength 4+/5 on the left arm. He is able to hold his left arm against gravity but does have subtle drift with his hands and fingers. Pattern Scratcher strength is 4+/5. Biceps and triceps are 4+/5. He is able to push and pull but is perceptibly weaker on the left than on the right Strength is 4+/5 in the left leg. He is able to hold against gravity but not quite as rapidly as on the right. Heel to chambers is slower on the left than on the right. Finger to nose and coordination normal. Gait not assessed due to acuity. Speech is at times halting. Perhaps a mild expressive aphasia with word choices but not really slurred speech. NIH stroke scale performed during initial evaluation at about 1:00 p.m = 5 Skin: Skin is warm and dry. No rash noted. No pallor. Normal capillary refill. Psychiatric: Normal mood. Normal affect. Const: Vital Signs, click to edit/add: Vital Signs - 24 hr 03/01/24 12:35 03/01/24 12:53 03/01/24 13:02 Temperature 97.2 F L Pulse Rate 75 Pulse Rate [Pulse Oximeter] 71 Respiratory Rate 16 Blood Pressure 137/77 117/65 Blood Pressure [Ri ght Upper Arm] 145/72 H Pulse Oximetry 100 100 Oxygen Delivery Me thod Room Air 03/01/24 13:14 03/01/24 13:15 03/01/24 13:38 Temperature Pulse Rate 72 72 Pulse Rate [Pulse Oximeter] Respiratory Rate Blood Pressure 121/82 Blood Pressure [Ri ght Upper Arm] Pulse Oximetry 99 [facility] 03/[facility]/24 13:41 03/01/24 13:45 03/01/24 14:00 Temperature Pulse Rate 80 75 63 Pulse Rate [Pulse Oximeter] Respiratory Rate Blood Pressure Blood Pressure [Ri ght Upper Arm] Pulse Oximetry 83 L 100 98 Oxygen Delivery [facility] 03/01/24 14:01 03/01/24 14:15 03/01/24 14:30 Temperature Pulse Rate 71 60 70 Pulse Rate [Pulse Oximeter] Respiratory Rate Blood Pressure 122/72 Blood Pressure [Ri ght Upper Arm] Pulse Oximetry 99 97 99 Oxygen Delivery [facility] 03/01/24 14:32 03/01/24 14:45 03/01/24 15:02 Temperature Pulse Rate 66 74 Pulse Rate [Pulse Oximeter] Respiratory Rate Blood Pressure 121/75 122/71 Blood Pressure [Ri ght Upper Arm] Pulse Oximetry 98 99 Oxygen Delivery [facility] 03/01/24 15:32 03/01/24 16:01 03/01/24 16:20 Temperature Pulse Rate 72 Pulse Rate [Pulse Oximeter] Respiratory Rate Blood Pressure 118/83 114/69 Blood Pressure [Ri ght Upper Arm] Pulse Oximetry 98 Oxygen Delivery [facility] 03/01/24 16:30 03/01/24 16:32 03/01/24 16:33 Temperature Pulse Rate 70 68 69 Pulse Rate [Pulse Oximeter] Respiratory Rate Blood Pressure 116/84 Blood Pressure [Ri ght Upper Arm] Pulse Oximetry 98 100 99 Oxygen Delivery [facility] 03/01/24 18:09 03/01/24 18:31 03/01/24 18:32 Temperature Pulse Rate 66 75 71 Pulse Rate [Pulse Oximeter] Respiratory Rate Blood Pressure 124/79 Blood Pressure [Ri ght Upper Arm] Pulse Oximetry 99 98 97 Oxygen Delivery [facility] 03/01/24 18:45 03/01/24 19:00 03/01/24 19:02 Temperature Pulse Rate 62 62 66 Pulse Rate [Pulse Oximeter] Respiratory Rate Blood Pressure 128/79 Blood Pressure [Ri ght Upper Arm] Pulse Oximetry 100 100 100 Oxygen Delivery [facility] 03/01/24 19:15 03/01/24 19:30 03/01/24 19:32 Temperature Pulse Rate 68 64 66 Pulse Rate [Pulse Oximeter] Respiratory Rate Blood Pressure 125/72 Blood Pressure [Ri ght Upper Arm] Pulse Oximetry 100 97 100 Oxygen Delivery Me thod 03/01/24 19:55 03/01/24 20:00 03/01/24 20:06 Temperature Pulse Rate 74 75 64 Pulse Rate [Pulse Oximeter] Respiratory Rate Blood Pressure 115/73 Blood Pressure [Ri ght Upper Arm] Pulse Oximetry 98 97 100 Oxygen Delivery Me thod 03/01/24 20:19 Temperature Pulse Rate 56 L Pulse Rate [Pulse Oximeter] Respiratory Rate Blood Pressure Blood Pressure [Ri ght Upper Arm] Pulse Oximetry 100 Oxygen Delivery Me thod Course Course ED Course: Recheck-CT scan delayed. Patient does not want to have CT angiogram due to risk of contrast with his kidney function. Discussed risk/benefit of CT contrast. Advantage of CTA is that it is fast then would help us rapidly identify an LV 0 and get him for IR therapy. Disadvantage would be risk of contrast causing worsening nephropathy. He is already on peritoneal dialysis but still makes urine. Another option would be a noncontrast MR angiogram of his head neck. It bandage here would be no risk of renal failure without contrast. Disadvantage would be would likely take a couple of hours to get the imaging which would delay a any intervention. Using shared decision-making, we decided to do MRI MRA after noncontrast CT. Patient understands this will delay identification of LVO Vital Signs Vital signs: Initial Vital Signs Temperature 97.2 F L 03/01/24 12:35 Temperature Source Temporal Artery Scan 03/01/24 12:35 Pulse Rate 71 03/01/24 12:35 Respiratory Rate 16 03/01/24 12:35 Blood Pressure 145/72 H 03/01/24 12:35 Blood Pressure Mean 96 03/01/24 12:35 Blood Pressure Position Sitting 03/01/24 12:35 Pulse Oximetry 100 03/01/24 12:35 Oxygen Delivery Method Room Air 03/01/24 12:35 Vital Signs Temperature 97.2 F L 03/01/24 12:35 Pulse Rate 71 03/01/24 12:35 Respiratory Rate 16 03/01/24 12:35 Blood Pressure 145/72 H 03/01/24 12:35 Pulse Oximetry 100 03/01/24 12:35 Oxygen Delivery Method Room Air 03/01/24 12:35 Temperature 97.2 F L 03/01/24 12:35 Pulse Rate 56 L 03/01/24 20:19 Respiratory Rate 16 03/01/24 12:35 Blood Pressure 115/73 03/01/24 20:06 Pulse Oximetry 100 03/01/24 20:19 Oxygen Delivery Method Room Air 03/01/24 12:35 Medications Administered Medications: Discontinued Medications Generic Name Dose Route Start Last Admin Trade Name Car PRN Reason Stop Dose Admin Sodium Chloride 500 mls @ 500 mls/hr 03/01/24 12:58 03/01/24 15:02 0.9 % Sodium Chloride 500 Ml IV 03/01/24 13:57 Infused .Q1H ONE Infusion Medical Decision Making MDM Narrative Medical decision making narrative: Pleasant 83-year-old gentleman with a history of end-stage renal disease with peritoneal dialysis, AFib with Watchman device (no longer on Eliquis), presenting to the ER with left-sided facial droop and subtle left arm and leg weakness. Concerning for probable acute stroke. Symptoms were 1st noticed this morning when he rolled over in bed to try to turn off his overnight peritoneal dialysis machine. Suspect this stroke probably happened sometime between 1:00 a.m. and when he woke up at 7:00 a.m.. Patient presented to the ER by private car and was already outside the window for thrombolytics. He also has contraindications including history of brain abscess with brain surgery. Noncontrast head CT was obtained and shows no evidence for intracranial hemorrhage. It does show his other chronic findings. MRI brain shows an acute right thalamic infarct which would be anatomically consistent with his symptoms.. MR angiogram head and neck show no acute findings, significant atherosclerotic disease, or large vessel occlusion. Nothing amenable to intra arterial clot retrieval. EKG here shows AFib which is chronic. He is no longer on Eliquis. No warfarin. INR 1.1. He has a Watchman in place. CBC shows hemoglobin 11.2 which is near his baseline. No signs of any active bleeding. White blood cell count normal. No fever. No other symptoms of infection. Metabolic profile shows a creatinine of 4.3, this is likely her baseline since he is on peritoneal dialysis. Potassium and sodium normal. In consultation with Dr. Iverson, Stroke Neurology from [facility], she recommends that we get the patient hospitalized for further workup. He needs an echocardiogram to check for possible intra-atrial thrombus and further workup for the cause of the stroke. For now she recommends continuing him on Plavix. Patient cannot be hospitalized here at [facility] because he is a peritoneal dialysis patient and we do not have that capability at our facility. Therefore transfer to a stroke center/dialysis capable hospital is indicated. Patient prefers, if transfer as necessary, to transfer to [place] at [facility] where he has had the vast majority of his other healthcare. I placed phone consultations to [facility] initially at around 1 or 130 when the patient arrived, but [place] [facility] declined call back since they do not have tele stroke capability with our facility. I called back again at about 7:00 p.m. after imaging was complete. The discussed with [facility] Neurology, Dr. Preciado. He accepts the patient in transfer to [place] [facility]. Patient was assigned a bed at [facility]. He was transferred by EMS. Lab Data Labs: Lab Results 03/01/24 Range/Units 13:05 WBC 4.72 (4.50-11.00) K/uL RBC 3.64 L (4.30-5.90) m/uL Hgb 11.2 L (13.5-17.5) gm/dL Hct 36.2 L (37.0-53.0) % MCV 100 (80-100) fL MCH 31 (26-34) pg MCHC 31 L (32-36) gm/dL RDW Coeff of Cintia 13.6 (11.5-15.5) % Plt Count 134 L (140-440) K/uL Neut % (Auto) 71.6 (42.0-72.0) % Lymph % (Auto) 9.3 L (20-44) % [place] % (Auto) 11.7 H (0.0-11.0) % Eos % (Auto) 6.8 (0.0-7.0) % Baso % (Auto) 0.4 (0.0-3.0) % Neut # (Auto) 3.38 (1.7-7.0) K/uL Lymph # (Auto) 0.40 L (0.90-2.90) K/uL [place] # (Auto) 0.60 (0.00-0.90) K/UL Eos # (Auto) 0.32 (0.00-0.50) K/uL Baso # (Auto) 0.02 (0.00-0.30) K/uL Abs Immat Gran (auto) 0.01 (0.00-0.30) K/uL Imm/Tot Granulo (auto) 0.2 % INR 1.13 H (0.91-1.10) Sodium 139 (135-149) mmol/L Potassium 3.7 (3.6-5.1) mmol/L Chloride 104 (96-114) mmol/L Carbon Dioxide 27 (20-32) mmol/L Anion Gap 8 (7-15) mEq/L BUN 46 H (7-30) mg/dL Creatinine 4.3 H (0.5-1.5) mg/dL Estimated Creat Clear 12.81 Estimated GFR 13 ml/min Glucose 115 (60-115) mg/dL Lactate 1.7 (0.5-1.9) mmol/L Calcium 8.7 (8.4-10.6) mg/dL Troponin I 0.02 (0.01-0.04) ng/mL Imaging Data CT scan - head: Attestation: I have reviewed the pertinent imaging results. My impression: No acute bleed Radiologist's impression: MPRESSION: 1. No acute hemorrhage or large territory infarct. 2. Redemonstration of right frontal encephalomalacia, which is compatible with postsurgical change. MRI Brain: Attestation: I have reviewed the pertinent imaging results. Radiologist's impression: Phone call from consulting radiology at 5:57 p.m. Impression: 1. Small acute lacunar infarct at the inferomedial right thalamus. No hemorrhagic transformation. 2. Right high frontal craniotomy changes with subjacent encephalomalacia and gliosis. 3. Mild central predominant cerebral volume loss and mild-moderate chronic microangiopathy changes, with a couple of chronic microhemorrhages and multiple scattered chronic lacunar infarcts as detailed. MRA brain: Attestation: I have reviewed the pertinent imaging results. Radiologist's impression: Impression: 1. No convincing evidence of intracranial large vessel occlusion or critical stenosis given artifact from patient motion. MRA Neck: Attestation: I have reviewed the pertinent imaging results. Radiologist's impression: Impression: Unremarkable noncontrast MRA of the neck as far as visualized. ECG Data Interpretation: a fib with vetricular breats Rate: 67 NE: na QRS axis: Normal. ST segment/T wave: Changes consistent with LVH with strain pattern. QTc: 458 Discharge Plan Discharge Clinical Impression: Stroke, Chronic renal failure Patient Disposition: [facility] Discharge Location: [facility] Prescriptions: No Action famotidine 20 mg tablet 20 mg PO DAILY amoxicillin 500 mg capsule PO Rx Instructions: prior to dental work torsemide 20 mg tablet 20 mg DAILY Patient Comments: Take 1 tablet by mouth once a day allopurinol 100 mg tablet 100 mg DAILY calcitriol 0.25 mcg capsule 0.25 mcg Patient Comments: TAKE 1 CAPSULE BY MOUTH THREE DAYS (TIMES) A WEEK MWF docusate sodium 100 mg tablet 100 mg PO HS Patient Comments: Take 1 tablet by mouth twice a day as needed - for constipation metoprolol tartrate 25 mg tablet 25 mg BID Dialyvite 100-1 mg tablet 1 tab Q24H Patient Comments: TAKE 1 TABLET BY MOUTH DAILY WITH DINNER pantoprazole 40 mg tablet,delayed release (DR/EC) 40 mg PO DAILY clopidogrel 75 mg tablet 75 mg PO DAILY Stand Alone Forms: MyHealth Info Instructions
--- NOTE | 2024-03-01 12:58 | CRLHL7_ITS ---
For Patients: As a result of the Century Cures Act, medical imaging exams and procedure reports are released immediately into your electronic medical record. You may view this report before your referring provider. If you have questions, please contact your health care provider. INDICATION: LEFT FACIAL DROOP, LUE AND LLE, WEAK, FALL TECHNIQUE: CT of the head was performed without IV contrast. COMPARISON: 08/28/2018. FINDINGS: Parenchyma: No acute hemorrhage, infarction, or mass. Redemonstration of right frontal encephalomalacia. Mild confluent periventricular white matter hypoattenuation is nonspecific and is favored to represent chronic small vessel ischemic disease. Ventricles and extra-axial spaces: Zoll-go-xclvdrum involutional changes. Visualized paranasal sinuses: Clear. Mastoid air cells: Clear. Bones: Postsurgical changes from right frontal craniotomy. Additional comment: Bilateral lens surgery. IMPRESSION: 1. No acute hemorrhage or large territory infarct. 2. Redemonstration of right frontal encephalomalacia, which is compatible with postsurgical change. Please note that all CT scans at this facility use dose modulation, iterative reconstruction, and/or weight-based dosing when appropriate to reduce radiation dose to as low as reasonably achievable. Dictated by Dariel Hung MD @ 03/01/2024 1:53:45 PM (Electronically Signed)
[2024-03-01 13:15] LABS: Lactate* 1.7 mmol/L (0.5-1.9)
[2024-03-01 13:21] LABS: Basophils Absolute Auto 0.02 K/uL (0.00-0.30); Basophils Percent Auto 0.4 % (0.0-3.0); Eosinophils Absolute Auto 0.32 K/uL (0.00-0.50); Eosinophils Percent Auto 6.8 % (0.0-7.0); Hematocrit 36.2 % (37.0-53.0); Hemoglobin* 11.2 gm/dL (13.5-17.5); Immature Granulocytes Abs Auto 0.01 K/uL (0.00-0.30); Immature Granulocytes Pct Auto 0.2 %; Lymphocytes Percent Auto 9.3 % (20-44); Mean Corpuscular HGB Conc 31 gm/dL (32-36); Mean Corpuscular Hemoglobin 31 pg (26-34); Mean Corpuscular Volume 100 fL (80-100); Monocytes Percent Auto 11.7 % (0.0-11.0); Neutrophils Absolute Auto 3.38 K/uL (1.7-7.0); Neutrophils Percent Auto 71.6 % (42.0-72.0); Platelet Count* 134 K/uL (140-440); RDW Coefficient of Variation % 13.6 % (11.5-15.5); Red Blood Count 3.64 m/uL (4.30-5.90); White Blood Count* 4.72 K/uL (4.50-11.00)
[2024-03-01] MEDS: 0.9 % SODIUM CHLORIDE 500 ML 500 ML IV (13:21)
--- NOTE | 2024-03-01 13:23 | CRLHL7_ITS ---
For Patients: As a result of the Century Cures Act, medical imaging exams and procedure reports are released immediately into your electronic medical record. You may view this report before your referring provider. If you have questions, please contact your health care provider. Indication: Stroke, left-sided weakness Technique: Multiplanar, multisequence MRI of the brain obtained without contrast. Comparison: Same-day CT head Findings: Small focus of restricted diffusion at the inferomedial right thalamus. No evidence of hemorrhagic transformation. Postsurgical changes of high right frontal craniotomy with subjacent encephalomalacia and gliosis. Chronic lacunar infarcts throughout the right muller radiata, left anterior basal ganglia, left thalamus, and bilateral cerebellar hemispheres. Mild central predominant cerebral volume loss, mild-moderate chronic microangiopathy white-matter signal changes, and a couple of chronic microhemorrhages at the left frontal centrum semiovale. The major expected intracranial flow voids are preserved where visualized. Bone marrow signal is unremarkable. No evidence of obstructive paranasal sinus disease or significant mastoid effusion. Bilateral lens implants. Impression: 1. Small acute lacunar infarct at the inferomedial right thalamus. No hemorrhagic transformation. 2. Right high frontal craniotomy changes with subjacent encephalomalacia and gliosis. 3. Mild central predominant cerebral volume loss and mild-moderate chronic microangiopathy changes, with a couple of chronic microhemorrhages and multiple scattered chronic lacunar infarcts as detailed. Dictated by Miriam Malone MD @ 03/01/2024 5:54:57 PM (Electronically Signed)
--- NOTE | 2024-03-01 13:23 | CRLHL7_ITS ---
For Patients: As a result of the Century Cures Act, medical imaging exams and procedure reports are released immediately into your electronic medical record. You may view this report before your referring provider. If you have questions, please contact your health care provider. Indication: Stroke, left-sided weakness Technique: 3D Yask-ry-tvdrjr MR angiogram of the crndtv-au-Xjuent with 3-dimensional MIP projections were submitted. Comparison: Same day MRI brain and CT head Findings: There is artifact from patient motion, degrading image quality and limiting evaluation. The visualized first and second order intracranial vessels appear grossly patent. The intradural vertebral arteries are small in caliber, terminating predominantly in PICA on the left, with commensurate small-caliber basilar artery. Bilateral origin posterior cerebral arteries. No convincing evidence of proximal arterial occlusion or high-grade stenosis. No significant aneurysm or high-flow vascular malformation seen. Impression: 1. No convincing evidence of intracranial large vessel occlusion or critical stenosis given artifact from patient motion. Dictated by Miriam Malone MD @ 03/01/2024 5:59:26 PM (Electronically Signed)
--- NOTE | 2024-03-01 13:23 | CRLHL7_ITS ---
For Patients: As a result of the Century Cures Act, medical imaging exams and procedure reports are released immediately into your electronic medical record. You may view this report before your referring provider. If you have questions, please contact your health care provider. Indication: Stroke, left-sided weakness Technique: Slzv-nc-prquge MR angiogram of the neck with 3D MIP reconstructions provided. All measurements are based on NASCET criteria. Comparison: Same day MRA head Findings: There is artifact from patient motion, degrading image quality and limiting evaluation. Both carotid systems are unremarkable in the neck. No evidence for hemodynamically significant internal carotid artery stenosis by NASCET criteria. The cervical segments of both vertebral arteries appear grossly patent. The non dominant left vertebral artery appears to terminate in PICA. Impression: Unremarkable noncontrast MRA of the neck as far as visualized. Dictated by Miriam Malone MD @ 03/01/2024 6:40:09 PM (Electronically Signed)
[2024-03-01 13:25] LABS: Slide Review Reflex No
--- OUTSIDE RECORDS SUMMARY | 2024-03-01 13:35 | XMS_ITS | Clinical Summary ---
Author Organization [employer] [facility] Address [place], [place] [address] Care Team Providers Care Cotton Picker Operator Name Role Phone Kush Doran MD Primary Care Provider Viki Abarca MD Unavailable [phone] Allergies Active Allergy Reactions Criticality Noted Date [...] Cx neg ative. 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 No further procedural intervention. [...] Encounters Date Type Department Care Team Description 02/23/2024 Orders Only [facility] Scanner 1 scan: (1-Ord) [place], RT KNEE, 02/23/2024 02/20/2024 Refill [facility] [address] [place] [address] Sebastian Charles MD Refill Request (Pantoprazole) 01/01/2024 8:00 AM CDT Office Visit [facility] [address] [place] [address] Florian Villalobos MD Sleep Follow-up 01/01/2024 Travel 12/01/2023 1:15 PM CDT Preop Visit [facility] [address] [place] [address] Kush Doran MD Preoperative Exam (DOS: 12/07/2023, right knee surgery, Dr. Mejia, [facility]) 12/01/2023 Travel from Last 3 Months Immunizations Name Administration Dates Next Due AMB Influenza, IIV4 PF (=>6 mos Flulaval,Fluzone Fluarix)(Flu Clinic Only) 06/13/2018 COVID-19 vaccine (Pfizer-Bio NTech 30mcg/0.3mL) 12YO+ BIVALENT PF, MDV 05/19/2022 COVID-19 vaccine (Alekto-Bio NTech 30mcg/0.3mL) PF, MDV 05/18/2021,10/14/2020,09/23/2020 Hepatitis B [...] 36.7 ??C (98 ??F) 09/04/2023 11:28 AM CONTROL SYSTEMS SPECIALIST Respiratory Rate 14 04/13/2023 4:03 PM CDT [...] Description 04/02/2024 8:30 AM CDT Office Visit [facility] [address] [place] [address] Florian Villalobos MD [address] [place] [address] Health Maintenance Due Date Last Done Comments [...] 12/11/2018, 04/08/2010 Medical Devices Implanted Type Area Senior Gamemaster Device Identifier Shelf Expiration Date Model / Serial / Lot Cath Dial Adlt Std Merit Classic Peritoneal Perc Implanted:Qty: 1 on 08/16/2021 by Clayton Diaz MD at [facility] N/A: Abdomen 05/14/2024 [id number] / / Description:CATH DIAL ADLT S TD MERIT CLASSIC PERITONEAL PERC Procedures Procedure Name Priority Date/Time Associated Diagnosis Comments SCAN-MRI INTERPRETATION 02/23/2024 12:00 AM CDT CBC W PLT NO DIFF Routine 12/01/2023 1:5 7 PM CDT Preop examination BASIC METABOLIC PANEL Routine 12/01/2023 1:57 PM CDT Preop examination from Last 3 Months Results * SCAN-MRI INTERPRETATION (02/23/2024 12:00 AM CDT) Anatomical Region Laterality Modality Other Scanner OTHER * (ABNORMAL) CBC W PLT NO DIFF (12/01/2023 1:57 PM CDT) WHITE BLOOD COUNT 5.8 4.5 - 11.0 thou/cu mm 12/01/2023 2:10 PM CDT [facility] RED BLOOD COUNT 3.66(L) 4.30 - 5.90 mil/cu mm 12/01/2023 2:10 PM CDT [facility] HEMOGLOBIN 12.2(L) 13.5 - 17.5 g/dL 12/01/2023 2:10 PM CDT [facility] HEMATOCRIT 37.2 37.0 - 53.0 % 12/01/2023 2:10 PM CDT [facility] MCV 102(H) 80 - 100 fL 12/01/2023 2:10 PM CDT [facility] MCH 33.3 26.0 - 34.0 pg 12/01/2023 2:10 PM CDT [facility] MCHC 32.8 32.0 - 36.0 g/dL 12/01/2023 2:10 PM CDT [facility] RDW 13.1 11.5 - 15.5 % 12/01/2023 2:10 PM CDT [facility] PLATELET COUNT 140 140 - 440 thou/cu mm 12/01/2023 2:10 PM CDT [facility] MPV 9.0 6.5 - 11.0 fL 12/01/2023 2:10 PM CDT [facility] Blood BLOOD SPECIMEN / Unknown Venipuncture / Unknown 12/01/2023 1:57 PM CDT 12/01/2023 1:58 PM CDT Kush Doran MD HEMATOLOGY [facility] [address] [place] [address], * (ABNORMAL) BASIC METABOLIC PANEL (12/01/2023 1:57 PM CDT) [facility] SODIUM 143 136 - 145 mmol/L 12/01/2023 9:00 PM CDT [facility] POTASSIUM 3.5 3.5 - 5.1 mmol/L 12/01/2023 9:00 PM CDT [facility] CHLORIDE 105 98 - 107 mmol/L 12/01/2023 9:00 PM T [facility] CO2,TOTAL 27 22 - 29 mmol/L 12/01/2023 9:00 PM T [facility] ANION GAP 11 5 - 18 12/01/2023 9:00 PM T [facility] GLUCOSE 106(H) 70 - 99 mg/dL 12/01/2023 9:00 PM T [facility] CALCIUM 8.8 8.8 - 10.2 mg/dL 12/01/2023 9:00 PM T [facility] BUN 45(H) 8 - 23 mg/dL 12/01/2023 9:00 PM T [facility] CREATININE 4.05(H) 0.70 - 1.20 mg/dL 12/01/2023 9:00 PM [facility] BUN/CREAT RATIO 11 10 - 20 9:00 PM T [facility] eGFR 14(L) >90 mL/min/1.7 3m2 12/01/2023 9:00 PM [facility] Comment:As of 2021, eG FR [...] 1:58 PM CDT Kush Doran MD [facility] [address] [place] [address], [place] from Last 3 Months Advance Directives Documents on File Type Date Recorded Patient Fire Operations Forester Expl anation Healthcare Directive 05/16/2018 3:06 PM HE ALTHCARE DIRECTIVE, [facility], 09/14/2005 * Full Code (Latest [...] Comments Code Status Discussion: Discussed Care Teams Cotton Picker Operator Relationship Specialty Start Date End Date Kush Doran MD [address] [place] [place] [address] PCP - General Family Practice 01/31/17 Viki Abarca MD [address] [place] [id number] Gastroenterology 10/13/20
--- OUTSIDE RECORDS SUMMARY | 2024-03-01 13:35 | XMS_ITS | Continuity of Care Document ---
Author Name [facility] Organization [facility] Care Team Providers Care Child Care Group Leader Name Role Phone [facility] Unavailable Unavailable Problems Combined list of problems from Department of Defense and [facility] Affairs facilities. It does not include entries that were removed or entered in error. Problem Status Onset Date Problem Type Date of Resolution Comments Source Acute GI bleeding Active 05/13/20 22 Condition [facility] Anemia in end stage renal disease Active Condition [facility] Anxiety ([facility] [id number]) Active Condition [facility] Atrial fibrillation Active Condition Nov 07, 2023 Entered By: MACIE ESCAMILLA Comment: Watchman device placed 09/2023 [facility]ITC Primary Care Active Condition Oc t 2021 Entered By: MARILYN ROBINS Comment: Community Care Primary: Dr. Mik Doran, [place] [address]. [phone] . [facility] Congestive heart failure Active Condition [facility] Dysphagia Active Condition [facility] Empyema Active Condition [facility] End-stage renal disease Active Condition [facility] Esophageal varices Active Condition [place] [facility] Ex[facility]tobacco user Active [facility] Gout ([facility] [id number]) Active Condition [place] [facility] Hemoptysis Active Condition [facility] Hiatal hernia Active [facility] History of polyp of colon Active Condition [facility] Impaired hearing Active Condition [facility] Leukopenia Active Condition [facility] Long-term current use of anticoagulant Active Condition Jun 10, 2022 Entered By: MARILYN ROBINS Comment: Indication: AF. [facility] Malnutrition Active [facility] Osteopenia Active Condition Jun 10 Entered By: MARILYN ROBINS Comment: 05.31.2022 DXA. [facility] Stricture of esophagus Active Condition [facility] Thrombocytopenia Active [facility] Diagnosis: ICD-10-CM Z01.00 Encounter for exam of eyes and vision w/o abnormal findings Active Diagnosis [facility] Medications Combined list of outpatient medications from [...] ed by: ELENITA ROBINS Document ed at: [facility] ORAL ACTIVE ELENITA ROBINS 2021 [facility] CALCITRIOL 0.25MCG CAP CALCITRI OL 0.25MCG CAP Non-VA TAKE 1 CAPSULE BY MOUTH Jun 10, 2022 Non-VA Document ed by: ELENITA ROBINS Document ed at: [facility] ORAL ACTIVE ELENITA ROBINS 2021 [facility] DIALYVITE TAB DIALYVIT E TAB Non-VA TAKE ONE TABLET BY MOUTH AT BEDTIME Jun 10, 2022 Non-VA Document ed by: ELENITA ROBINS Document ed at: [facility] ORAL ACTIVE ELENITA ROBINS 2021 [facility] DOCUSATE NA 100MG CAP DOCUSATE NA 100MG CAP Non-VA TAKE 1 CAPSULE BY MOUTH PRN Jun 10, 2022 Non-VA Document ed by: ELENITA ROBINS Document ed at: [facility] ORAL ACTIVE ELENITA ROBINS 2021 [facility] METOPROLOL TARTRATE 50MG TAB METOPROL OL TARTRATE 50MG TAB Non-VA TAKE ONE-HALF TABLET BY MOUTH TWICE A DAY Jun 10, 2022 Non-VA Document ed by: ELENITA ROBINS Document ed at: [facility] ORAL ACTIVE ELENITA ROBINS 2021 [facility] ONDANSETRON HCL 4MG TAB ONDANSET TED HCL 4MG TAB Non-VA TAKE ONE TABLET BY MOUTH EVERY 6 HOURS NEEDED Jun 10, 2022 Non-VA Document ed by: ELENITA ROBINS Document ed at: [facility] ORAL ACTIVE ELENITA ROBINS 2021 [facility] PANTOPRAZOL E NA 40MG TAB,EC PANTOPRA ZOLE NA 40MG TAB,EC Non-VA TAKE ONE TABLET BY MOUTH EVERY DAY Jun 10, 2022 Non-VA Document ed by: ELENITA ROBINS Document ed at: [facility] ORAL ACTIVE ELENITA ROBINS 2021 [facility] SUCRALFATE 500MG/5ML SUSP,ORAL SUCRALFA TE 500MG/5M L SUSP,ORA L Non-VA TAKE 2 TEASPOON SFUL BY MOUTH EVERY 6 HOURS Jun 10, 2022 Non-VA Document ed by: ELENITA ROBINS Document ed at: [facility] ORAL ACTIVE ELENITA ROBINS 2021 [facility] TORSEMIDE 20MG TAB TORSEMID E 20MG TAB Non-VA TAKE ONE TABLET BY MOUTH EVERY DAY Jun 10, 2022 Non-VA Document ed by: ELENITA ROBINS Document ed at: [facility] ORAL ACTIVE ELENITA ROBINS 2021 [facility] Allergies, Adverse Reactions, Alerts Combined list of allergies from Department of [facility] and [facility] facilities. It does not include entries that were removed or entered in error. Substance Category Reaction Severity Reaction type Status Date Reported Comments Source CARBAMAZEPINE Propensity to adverse reactions to drug (finding) active 2 [facility] FUROSEMIDE Propensity to adverse reactions to drug (finding) active 2 [facility] PROPAFENONE Propensity to adverse reactions to drug (finding) active 2 [facility] SUCRALFATE Propensity to adverse reactions to drug (finding) active 2 [facility] Immunizations Combined list of available immunizations from the Department of [facility] and [facility] facilities. Immunization Series Date Given Administered By Site Reaction Lot Number CVX Code Drug Operations Supervisor 2Nd Shift Status Comments Source COVID-19 ([employer]), MRNA, LNP-S, PF, 30 MCG/0.3 ML DOSE 2 2020 208 complet ed PFR; [id number]; 1 [facility] COVID-19 (PFIZER), MRNA, LNP-S, PF, 30 MCG/0.3 ML DOSE 1 2020 208 complet ed PFR; [id number]; 1 [facility] Encounters Combined list of: 1) Encounters from Department of Veterans Affairs facilities going back up to thelast 18 months. 2) Encounters from the Department of [facility] facilities going back up to 280 months. Location Location Details Encounter Type Encounter Number Reason For Visit Attending Provider ADM Date DC Date Status Disposition Source [facility] IMG RTA DETCJ/MNTR DS STAFF [id number] Diagnos is: ICD-10- CM Z01.00 Encount er for exam of eyes and vision w/o abnorma l finding s
Cinthya HENDERSON E 04/12 [facility] [place] [facility] Outpatient Encounter [id number] Diagnos is: ICD-10- CM Z01.00 Encount er for exam of eyes and vision w/o abnorma l finding s
ALEX LUCERO 04/13 [facility] [place] [facility] Outpatient Encounter [id number] 04/13 [facility] [place] [facility] Outpatient Encounter [id number] Eulogio BRYAN 05/02 [facility] [place] [facility] Outpatient Encounter [id number] 05/03 [facility] [place] [facility] Outpatient Encounter [id number] Lyric SIMS 05/03 [facility] [place] [facility] Outpatient Encounter [id number] [facility] [place] [facility] Outpatient Encounter [id number] 11/06 [facility] Social History Combined list of available smoking, tobacco, and other social history from Department of Defense and [facility] facilities. Social History Type Response Date Comment Sourc e This section is an empty social history section. DoD Plan of Care List of future care activities from Department of [facility] facilities. Additional future care activities may be listed in the Assessment and Plan section. Date/Time Care Activity Care Activity Detail Facili ty 04/11/2024 AMBULATORY - REHAB MEDICINE AMBULATORY - REHAB MEDICINE [facility]
--- OUTSIDE RECORDS SUMMARY | 2024-03-01 13:36 | XMS_ITS | Clinical Summary ---
Author Organization [facility] Address [address] [place] [address] Care Team Providers Care Track And Field Coach Name Role Phone Elsewhere, Pcp Primary Care Provider Unavailabl e Source Comments Patient records contain information from all sites at [facility]. For routine questions regarding patient records, call [phone] during business hours, M-F 8:00 AM - 5:00 PM Central Time. Record requests for emergency care only can be directed to [phone] at any time.[facility] Allergies Active Allergy Reactions Criticality Noted Date [...] Aortic Valve Acquired 05/18/2023 Hemorrhage Gastrointestinal 06/05/2022 Residential (Current) Anticoagulant Treatment 11/20 Hypertensive Chronic Kidney [...] How often do you attend chur or congregation services? More than 4 times per year 04/11/2022 Do you belong to any clubs o r organizations such as faith groups, unions, fraternal or [...] and heating? Not hard at all 05/13/2023 [facility] of Occupat ional Health - Occupational Stress [...] living situation today? I have a [facility] place to live 05/13/2023 Education Answer [...] (177 lb 7.5 oz) 10/17/2023 10:05 AM MANAGER HEART Height 172.5 cm (5' 7.91) 10/17/2023 10:[address] Body Mass Index 27.05 10/17/2023 10:05 AM MANAGER HEART Plan of Treatment Health Maintenance Due Date [...] Completed 11/27/2023 Medical Devices Implanted Type Area Beer Maker Device Identifier Shelf Expiration Date Model / Serial / Lot Osteomed-Plate Straight 2 Hole Med - [place] [id number] Implanted:Qty: 1 on 06/19/2002 Hardware e.g. pins/screws/ rods [employer] Description:Device Manufactu rer - [employer]. Device Status Text - [id number]. Osteomed-Plate Josef Hole Large - [place] [id number] Implanted:Qty: 2 on 06/19/2002 Hardware e.g. pins/screws/ rods [employer] Description:Device Manufactu rer - [employer]. Device Status Text - [id number]. Osteomed-Screw Auto-Drive 1.6 X 4 - [place] [id number] Implanted:Qty: 16 on 06/19/2002 Hardware e.g. pins/screws/ rods [employer] Description:Device Manufactu rer - [employer]. Device Status Text - [id number]. Dev Kelsie Cls [facility] Pro Del Sys 27 - [id number] Implanted:Qty: 1 on 10/17/2023 by Radha Andrade M.BBaileyBBaileyS. at [facility] Mesh or Patch [employer] 05/07/2026 [id number] / / [id number] Procedures Procedure Name Priority Date/Time Associated Diagnosis Comments EXTI BASIC METABOLIC PANEL, S/P Routine 12/01/2023 1:57 PM CDT from Last 3 Months or Most Recently Relevant to Health Maintenance Advance Directives For more information, please contact: [phone] * Full Code (Latest Code Status on [...] Answer Comments Full Code: Discussed Care Teams Track And Field Coach Relationship Specialty Start Date End Date Elsewhere, Pcp PCP - General Internal Medicine 11/24/23
--- OUTSIDE RECORDS SUMMARY | 2024-03-01 13:36 | XMS_ITS ---
Author Organization [facility] Address [address] [place] [address] Care Team Providers Care Financial Sales Associate Name Role Phone Unavailable Unavailable Unavailable Surgery Details Not on file Complications Check Surgery Details section. Procedure Estimated Blood Loss Check Surgery Details section. Procedure Findings Check Surgery Details section. Procedure Specimens Taken Check Surgery Details section.
--- OUTSIDE RECORDS SUMMARY | 2024-03-01 13:36 | XMS_ITS ---
Author Name Gwendolyn, Clinic Address [address] [place] [address] Phone [phone] Organization [facility] e, NA DOCUMENT DISCLAIMER Multiple document versions may exist, please be sure you review the latest version. The information in the [facility] Continuity of Care Document represents a summary [...] Instructions Dosage Route Start Date End Date [facility] allopurinol 100 mg Take by [...] ORAL December 22, 2021 Active VITAL SIGNS Weight Vital Sign Value Date / Time Estimated Dry Weight 77 kg January 29 11:59 PM Other Other Value Date / Time Height 171 cm September 11, 2023 12:00 AM Body Mass Index 26.33 kg/m2 February 06, 2024 04 :46 PM [facility] Tuberculosis Testing TST Date Administered TST Date Read TST Result 09/14/2021 09/16/2021 Negative (<5) mm LAB RESULTS Hematology Result Type Result Value Relevant Referen ce Range Interpretation Date UIBC (Calc) 224 mcg/dL 155 - 355 [...] mcg/dL 185 - 515 mcg/dL - November TIBC 296 mcg/dL 185 - 515 mcg/dL [...] 22 - 322 ng/mL - December 24 WBC (No Diff) 4.43 1000/mcL 4.80 - [...] 19.0 - 48.0 % Low December 24 Hemoglobin x 3 34.8 % [...] - 515 mcg/dL - January 31, 2024 Monocytes 9.6 % 3.0 [...] - 6.10 mill/mcL Low January 31, 2024 Transferrin Sat. (Calc) 10 % 20 - 55 % Low January 31, 2024 Metabolic/Renal Result Type [...] 96 - 108 mEq/L - December 24 Potassium 3.8 mEq/L 3.5 - 5.1 mEq/L - December 24 Sodium 140 mEq/L 136 - 145 mEq/L - December 24 Bicarbonate 30 mEq/L 20 - 31 mEq/L [...] Ran ge Provided - February 14, 2024 BUN 49 mg/dL 6 - 19 mg/dL High February 13 Urea Nitrogen, Urine, Timed 526 mg/dL No Reference Range Provided - February 14, 2024 Bone/Mineral Result Type Result Value Relevant Referen ce Range Interpretation Date Magnesium 2.4 mg/dL 1.6 - 2.6 mg/dL [...] 0 - 54 - December 04, 2023 Ca x P Product 34 0 - 54 - December 24 24 Corrected Ca x P Product 36 0 - 54 - December 25, 2023 Alkaline Phosphatase 287 U/L 40 - 129 U/L High Ma y 2023 Magnesium 1.9 mg/dL 1.6 - 2.6 mg/dL - December 24 024 PTH-Intact, Plasma 268 pg/mL 16 - 80 pg/mL High December 25, 2023 Phosphorus 4.0 mg/dL 2.6 - 4.5 mg/dL - December 24 024 Calcium, Total 8.5 mg/dL 8.7 - 10.4 mg/dL Low December 25, 2023 Phosphorus 3.7 mg/dL 2.6 - 4.5 mg/dL - January 31, 2024 Calcium, Total 8.8 mg/dL 8.7 - 10.4 mg/dL - January 31, 2024 Ca x P Product 33 0 - 54 - January 30, 024 Corrected Ca x P Product 34 0 - 54 - January 31, 2024 Liver/Nutrition Result [...] 70 - 100 mg/dL High January 30 024 Peritoneal Dialysis Testing Result Type Result Value [...] 30, 2024 Frequency 6X [facility] [place] Estimated Dry Weight 77 kg Calcium Content [...] Solution Dialysis Access Meds-entered by patient February 29, 2024 1 of 1 - Dextrose 2.5% Peritoneal Dialysis-PD Catheter-Double Cuff Coiled, Right Upper Quadrant of Abdomen Access Placed on August 16, 2021 - Vitals Time Weight BP Heart Rate Temperature Blood Sugar February 29, 2024 (AM) 78.82 kg 114/72 mmHg 76 beats per minute 97.5 deg. F - [facility]CP[facility] Date Exchanges Fill Volume Exchange Solution Dialysis Access Meds-entered by patient February 28, 2024 1 of 1 - Dextrose 2.5% Peritoneal Dialysis-PD Catheter-Double Cuff Coiled, Right Upper Quadrant of Abdomen Access Placed on August 16, 2021 - Vitals Time Weight BP Heart Rate Temperature Blood Sugar February 28, 2024 (AM) 79.37 kg 119/68 mmHg 81 beats per minute 97.5 deg. F - [facility] Date Exchanges Fill Volume Exchange Solution Dialysis Access Meds-entered by patient February 27, 2024 1 of 1 - Dextrose 2.5% Peritoneal Dialysis-PD Catheter-Double Cuff Coiled, Right Upper Quadrant of Abdomen Access Placed on August 16, 2021 - Vitals Time Weight BP Heart Rate Temperature Blood Sugar February 27, 2024 (AM) 79.18 kg 117/70 mmHg 74 beats per minute 97.2 deg. F -
--- OUTSIDE RECORDS SUMMARY | 2024-03-01 13:36 | XMS_ITS | Referral Summary ---
Author Organization [facility] Address [address] [place] [address] Care Team Providers Care Mobile Game Engineer Name Role Phone Elsewhere, Pcp Primary Care Provider Unavailabl e Source Comments Patient records contain information from all sites at [facility]. For routine questions regarding patient records, call [phone] during business hours, M-F 8:00 AM - 5:00 PM Central Time. Record requests for emergency care only can be directed to [phone] at any time.[facility] Allergies Active Allergy Reactions Criticality Noted [...] Aortic Valve Acquired 05/18/2023 Hemorrhage Gastrointestinal 06/05/2022 Alf (Current) Anticoagulant Treatment 11/20 Hypertensive Chronic Kidney [...] any clubs o r organizations such as yarsani groups, unions, fraternal or [...] and heating? Not hard at all 05/13/2023 [facility] Occupat ional Health - [...] your living situation today? I have a [facility] place to live 05/13/2023 Education Answer [...] (177 lb 7.5 oz) 10/17/2023 10:05 AM CASTING TRUCKER Height 172.5 cm (5' 7.91) 10/17/2023 10:[address] Body Mass Index 27.05 10/17/2023 10:05 AM CASTING TRUCKER Plan of Treatment Not on file Medical Devices Implanted Type Area Cloth Printer Device Identifier Shelf Expiration Date Model / Serial / Lot Osteomed-Plate Straight 2 Hole Med - Baptiste [id number] Implanted:Qty: 1 on 06/19/2002 Hardware e.g. pins/screws/ rods Osteomed [facility] Description:Device Manufactu rer - OsteoMed. Device Status Text - [id number]. Osteomed-Plate [place] Hole Large - Baptiste [id number] Implanted:Qty: 2 on 06/19/2002 Hardware e.g. pins/screws/ rods [employer] Description:Device Manufactu rer - OsteoMed. Device Status Text - [id number]. Osteomed-Screw Auto-Drive 1.6 X 4 - Baptiste [id number] Implanted:Qty: 16 on 06/19/2002 Hardware e.g. pins/screws/ rods [employer] Description:Device Manufactu rer - OsteoMed. Device Status Text - [id number]. Dev Kelsie Cls [facility] Pro Del Sys 27 - [id number] Implanted:Qty: 1 on 10/17/2023 by Radha Andrade M.B.BBaileySBailey at [facility] Mesh or [employer] 05/07/2026 [id number] / / [id number] Procedures Procedure Name Priority Date/Time Associated Diagnosis Comments EXTI BASIC METABOLIC PANEL, S/P Routine 12/01/2023 1:57 PM CDT from Last 3 Months or Most Recently Relevant to Health Maintenance Advance Directives For more information, please contact: [phone] * Full Code (Latest Code Status on [...] Answer Comments Full Code: Discussed Care Teams Mobile Game Engineer Relationship Specialty Start Date End Date Elsewhere, Pcp PCP - General Internal Medicine 11/24/23
--- OUTSIDE RECORDS SUMMARY | 2024-03-01 13:36 | XMS_ITS | Encounter Summary ---
Author Organization [facility] Address [address] [place] [address] Care Team Providers Care Catheter Builder Name Role Phone Elsewhere, Pcp Primary Care Provider Unavailabl e Reason for Visit * Reason Onset Date Comments Pre-visit Intake 11/24/2023 Encounter Details Date Type Department Care Team (Latest Contact Info) Description 11/24/2023 9:30 AM CDT Clinical Communication Virtual Review in [place], [place] [address] [place] [address] Pre-visit Intake Social History Tobacco Use Types [...] often do you attend chur ch or baptist services? More than 4 times per year 04/11/2022 Do you belong to any clubs o r organizations such as advent groups, unions, fraternal [...] 05/13/2023 [facility] Occupat ional Health - Occupational [...] your living situation today? I have a [facility] place to live 05/13/2023 Education Answer [...] on filedocumented in this encounter Care Teams Catheter Builder Relationship Specialty Start Date End Date Elsewhere, Pcp PCP - General Internal Medicine 11/24/23 documented as of this encounter
--- OUTSIDE RECORDS SUMMARY | 2024-03-01 13:36 | XMS_ITS ---
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 More than 4 times per year 04/11/2022 Do you belong to any clubs o r organizations such as adventist groups, unions, fraternal or [...] and heating? Not hard at all 05/13/2023 [facility] Occupat ional Health - [...] (177 lb 7.5 oz) 10/17/2023 10:05 AM MEDICAL AIDES TEACHER Height 172.5 cm (5' 7.91) 10/17/2023 10:[address] Body Mass Index 27.05 10/17/2023 10:05 AM MEDICAL AIDES TEACHER
--- OUTSIDE RECORDS SUMMARY | 2024-03-01 13:36 | XMS_ITS | Encounter Summary ---
Author Organization [facility] Address [address] [place] [address] Care Team Providers Care Sales Representative Printing Supplies Name Role Phone Elsewhere, Pcp Primary Care Provider Unavailabl e Reason for Referral * Outpatient (Routine) - Authorized Specialty Diagnoses / Procedures Referred By Contac t Referred To Contact Diagnoses Stenosis Aortic Valve Acquired Procedures Echo Transthoracic (TTE) Sarina Miller P.A.-C., M.S. [address] [place] [phone] [facility] Referral ID Status Reason Start Date Expiration Date V isits Requested Visits Authorized [id number] Authorized 11/28/2023 11/27/2024 1 1 * Outpatient (Routine) - Authorized Specialty Diagnoses / Procedures Referred By Contac t Referred To Contact Diagnoses Stenosis Aortic Valve Acquired Procedures DX Chest AP or PA and Lateral 2 Views Sarina Miller P.A.-C., M.S. [address] [place] [phone] [facility] Referral ID Status Reason Start Date Expiration Date V isits Requested Visits Authorized [id number] Authorized 11/28/2023 11/27/2024 1 1 * Outpatient (Routine) - Authorized Specialty Diagnoses / Procedures Referred By Contac t Referred To Contact Diagnoses Stenosis Aortic Valve Acquired Procedures ECG 12 Lead Sarina Miller P.A.-C., M.S. [address] [place] [phone] [facility] Referral ID Status Reason Start Date Expiration Date V isits Requested Visits Authorized [id number] Authorized 11/28/2023 11/27/2024 1 1 * Outpatient (Routine) - Authorized Specialty Diagnoses / Procedures Referred By Contac t Referred To Contact Cardiovascular Disease Sarina Miller P.A.-C., M.S. [address] [place] [phone] [facility] Referral ID Status Reason Start Date Expiration Date V isits Requested Visits Authorized [id number] Authorized 11/28/2023 05/29/2025 1 1 * Outpatient (Routine) - Authorized Specialty Diagnoses / Procedures Referred By Contac t Referred To Contact Cardiovascular Disease Sarina Miller P.A.-C., M.S. [address] [place] [phone] CVD [id number] [id number] [place] Referral ID Status Reason Start Date Expiration Date V isits Requested Visits Authorized [id number] Authorized 11/28/2023 05/29/2025 1 1 * Outpatient (Routine) - Authorized Specialty Diagnoses / Procedures Referred By Contac t Referred To Contact Diagnoses Atrial Fibrillation Paroxysmal (HCC) Procedures Echo Transesophageal (JASON) Sarina Miller P.A.-C., M.S. [address] [place] [phone] [facility] Referral ID Status Reason Start Date Expiration Date V isits Requested Visits Authorized [id number] Authorized 11/28/2023 11/27/2024 1 1 Reason for Visit * Outpatient (Routine) - Closed Specialty Diagnoses / Procedures Referred By Albino t Referred To Contact Cardiovascular Disease Diagnoses Atrial Fibrillation Paroxysmal (HCC) Sarina Miller P.A.-C., M.S. [address] [place] [address] [facility] Referral ID Status Reason Start Date Expiration Date Visits Re quested Visits Authorized [id number] Closed 06/16/2023 06/15/2026 1 1 Encounter Details Date Type Department Care Team (Latest Contact Info) Description 11/28/2023 1:00 PM CDT Telemedicine Department of Cardiovascular Medicine in [place], [place] [address] [place] [phone] Sarina Miller P.A.-C., M.S. [address] [place] [phone] Stenosis Aortic Valve Acquired (Primary Dx); Atrial [...] How often do you attend chur or nondenominational services? More than 4 times per year 04/11/2022 Do you belong to any clubs o r organizations such as buddhism groups, unions, fraternal or [...] your living situation today? I have a [facility] place to live 05/13/2023 Education Answer [...] the setting of atrial fibrillation with elevated [id number] VASc of 4 with a relative contraindication [...] valve with mild aortic valve regurgitation and mlszjdkb-uc-dlqgfw aortic stenosis by visual estimate on 2D imaging (recommend transthoracic echocardiogram for further evaluation as clinically indicated). 5. Moderate tricuspid valve regurgitation. There is tricuspid prolapse. 6. Due to patient's achalasia, the descending aorta was not able to be well visualized on today's examination. 7. 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 8. Agitated saline injection(s) performed during sedation no apparent yeyus-ey-gbwy shunting at theatrial level at rest or [...] (HCC) documented in this encounter Care Teams Sales Representative Printing Supplies Relationship Specialty Start Date End Date Elsewhere, Pcp PCP - General Internal Medicine 11/24/23 documented as of this encounter
--- OUTSIDE RECORDS SUMMARY | 2024-03-01 13:36 | XMS_ITS | Encounter Summary ---
Author Organization [facility] Address [address] [place] [address] Care Team Providers Care Senior Db2 Systems Programmer Name Role Phone Elsewhere, Pcp Primary Care Provider Unavailabl e Reason for Referral * Outpatient (Routine) - Closed Specialty Diagnoses / Procedures Referred By Albino henao Referred To Contact Diagnoses Atrial Fibrillation Paroxysmal (HCC) Procedures Echo Transesophageal (JASON) Sarina Miller P.A.-C., M.S. [address] [place] [phone] [facility] Referral ID Status Reason Start Date Expiration Date Visits Re quested Visits Authorized [id number] Closed 06/16/2023 06/15/2024 1 1 Reason for Visit * Outpatient (Routine) - Closed Specialty Diagnoses / Procedures Referred By Wilsonac juliano Referred To Contact Diagnoses Atrial Fibrillation Paroxysmal (HCC) Procedures Echo Transesophageal (JASON) Sarina Miller P.A.-C., M.S. [address] [place] [phone] [facility] Referral ID Status Reason Start Date Expiration Date Visits Re quested Visits Authorized [id number] Closed 06/16/2023 06/15/2024 1 1 Encounter Details Date Type Department Care Team (Latest Contact Info) Description 11/27/2023 10:01 AM CDT - 11/27/2023 11:59 PM CDT Hospital Encounter Department of Cardiovascular Diseases in [place], [place] [address] [place] [phone] Sarina Miller P.A.-C., M.S. [address] [place] [phone] Atrial Fibrillation Paroxysmal (HCC) Discharge Disposition: Home [...] How often do you attend chur or quaker services? More than 4 times per year 04/11/2022 Do you belong to any clubs o r organizations such as shinto groups, unions, fraternal or [...] and heating? Not hard at all 05/13/2023 [facility] of Occupat ional Health - Occupational Stress [...] (11/27/2023 11:15 AM CDT) Ejection Fraction 60 [facility] Anatomical Region Laterality Modality Echocardiography 11/27/2023 [...] and the findings as documented in the bank courier and also performed a pertinent examination including [...] performed at the request of the primary creative services designer. Adult probe inserted without difficulty. LEFT VENTRICLE:Normal [...] Agitated saline injection(s) performed during sedation. No pxzqs-zx-icsk shunt at atrial level at rest or [...] Sedation Narrator or other pertinent record in [facility] for additional procedure and sedation information. [...] valve ??with mild aortic valve regurgitation and fismnzsm-bg-iftesb aortic stenosis by visual estimate on 2D imaging (recommend transthoracic echocardiogram for further evaluation as clinically indicated). 5. Moderate tricuspid valve regurgitation. There is tricuspid prolapse. 6. Due to patient's achalasia, the descending aorta was not able to be well visualized on today's examination. 7. 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 8. Agitated saline injection(s) performed during sedation ??no apparent fspeu-ix-oijz shunting at the atrial level at rest [...] aortic valve with mild aortic valve regurgitation bwusqeejfth-yy-ezagyb aortic stenosis by visual estimate on 2D imaging(recommend transthoracic echocardiogram for further evaluation asclinically indicated). 5. Moderate tricuspid valve regurgitation. There is tricuspid prolapse. 6. Due to patient's achalasia, the descending aorta was not able to bewell visualized on today's examination. 7. 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 8. Agitated saline injection(s) performed during sedation no hbxwreayqhpcs-rw-khra shunting at the atrial level at rest [...] and the findings as documented in the bank courier and alsoperformed a pertinent examination including a heart, airway and lungassessment. Mallampati Assessment: As documented in the RN pre-procedureassessment. Sedation plan: Transesophageal echo - moderate sedation. ASAphysical status score: Class III. The patient's identity and all neededequipment were confirmed and a final confirmatory pause was performed bythe team immediately prior to start. PROCEDURAL ECHO FINDINGS:Transesophageal echocardiogram performed at the request of the primaryservice microsoft infrastructure consultant. Adult probe inserted without difficulty. LEFT [...] cava. Agitated saline injection(s) performed during sedation. Bmsaunx-or-evxo shunt at atrial level at rest or [...] See Sedation Narrator or other pertinentrecord in [facility] for additional procedure and sedation information.Physician [...] mL documented in this encounter Care Teams Senior Db2 Systems Programmer Relationship Specialty Start Date End Date Elsewhere, Pcp PCP - General Internal Medicine 11/24/23 documented as of this encounter
--- OUTSIDE RECORDS SUMMARY | 2024-03-01 13:37 | XMS_ITS | Encounter Summary ---
Author Organization [facility] [place] Address [address] [place] [address] Care Team Providers Care Paint Spraying Machine Operator Helper Name Role Phone Harish Silver MD Primary Care Provider [phone] Encounter Details Date Type Department Care Team (Late st Contact Info) Description 02/14/2024 Orders Only [facility] [place] [address] [place] [address] Sebastian Charles MD [address] [place] [address] Social History Tobacco Use [...] 02/14/2024 02/15/2024 9:5 3 AM CDT Narrative [facility] - 02/15/2024 Unless otherwise specified, test(s) performed at: [facility], [address] [place] [address], [place] [address] ROW BOSS HOEING: Dariel Doyle M.D., Ph.D For any questions, please call customer service at FREQUENCY:OTHER Resulting Agency Comment Specimen source: Urine Sebastian Charles MD LAB BODY FLUIDS AND STOOLS ORDERABLES Performing Organization Address City/[facility] Co de Phone Number [facility] See order comments or contact performing lab Unknown, [place] * PD ADEQUACY (02/14/2024) Pathologist [facility] Kt/V, Total 3.09 [facility] Comment: KDOQI Guidelines recommend weekly Kt/V of >=1.7 for adults. Kt/V, Peritoneal 0.67 [facility] PNA, Normalized 1.15 g/kg/day [facility] PNA 86 g/day [facility] 02/14/2024 02/15/2024 9:3 6 AM CDT Narrative Resulting Agency Comment Specimen source: PD Fluid Sebastian Charles MD LAB BODY FLUIDS AND STOOLS ORDERABLES Performing Organization Address City/[facility] Co de Phone Number [facility] See order comments or contact performing lab Unknown, [place] * PATIENT INFORMATION (02/14/2024) Urea Volume Distribution ([place]) 43.3 L [facility] 02/14/2024 02/15/2024 9:3 6 AM CDT Narrative [facility] - 02/15/2024 Unless otherwise specified, test(s) performed at: [facility], [address] [place] [address], [place] [address] ROW BOSS HOEING: Dariel Doyle M.D., Ph.D For any questions, please call customer service at FREQUENCY:OTHER Resulting Agency Comment Specimen source: PD Fluid Sebastian Charles MD LAB BLOOD ORDERABLES Performing Organization Address [facility] Co de Phone Number [facility] See order comments or contact performing lab Unknown, [place] * PATIENT INFORMATION (02/14/2024) Patient BSA 1.93 sq. M. [facility] Comment: Normalized values are calculated using the patient's actual BSA and normalized to the average BSA of 1.73m2. 02/14/2024 02/15/2024 7:1 3 AM CDT Narrative [facility] - 02/15/2024 Unless otherwise specified, test(s) performed at: [facility], [address] [place] [address], [place] [address] ROW BOSS HOEING: Dariel Doyle M.D., Ph.D For any questions, please call customer service at FREQUENCY:OTHER Resulting Agency Comment Specimen source: PD Fluid Sebastian Charles MD LAB BLOOD ORDERABLES Performing Organization Address [facility] de Phone Number [facility] See order comments or contact performing lab Unknown, [place] * PATIENT INFORMATION (02/14/2024) Patient Weight 81.0 [facility] Patient Height 171.0 [facility] Drain volume, PDF 5,408 [facility] Collection Time, PDF 24.0 [facility] Urine Volume 1,400 [facility] Collection Interval, Ur 24.0 [facility] 02/14/2024 02/14/2024 Narrative [facility] - 02/15/2024 Unless otherwise specified, test(s) performed at: [facility], [address] [place] [address], [place] [address] ROW BOSS HOEING: Dariel Doyle M.D., Ph.D For any questions, please call customer service at FREQUENCY:OTHER Resulting Agency Comment Specimen source: PD Fluid Sebastian Charles MD LAB BLOOD ORDERABLES Performing Organization Address [facility] de Phone Number [facility] See order comments or contact performing [...] MD LAB URINE ORDERABLES Performing Organization Address [facility] de Phone Number [facility] See order comments or contact [...] FLUIDS AND STOOLS ORDERABLES Performing Organization Address [facility] Co de Phone Number [facility] See order comments or contact performing lab Unknown, [place] * (ABNORMAL) [facility] Chemistry (02/14/2024) BUN 49(H) 6 - 19 mg/dL [facility] 02/14/2024 02/15/2024 7:1 3 AM CDT Narrative [facility] - 02/15/2024 Unless otherwise specified, test(s) performed at: [facility], [address] [place] [address], [place] [address] ROW BOSS HOEING: Dariel Doyle M.D., Ph.D For any questions, please call customer service at FREQUENCY:MONTHLY Resulting Agency Comment Specimen source: Serum Sebastian Charles MD LAB BLOOD ORDERABLES [facility] See order comments or contact performing lab Unknown, [place] documented in this encounter Visit Diagnoses Not on filedocumented in this encounter Care Teams Paint Spraying Machine Operator Helper Relationship Specialty Start Date End Date Harish Silver MD [address] [place] [address] PCP - General 05/17/19 documented as of this encounter
--- OUTSIDE RECORDS SUMMARY | 2024-03-01 13:37 | XMS_ITS | Encounter Summary ---
Author Organization [facility] Address [address] [place] [address] Care Team Providers Care Supervisor Propellant Charge Loading Name Role Phone Harish Silver MD Primary Care Provider [phone] Encounter Details Date Type Department Care Team (Late st Contact Info) Description 12/25/2023 Orders Only [facility] [place] [address] [place] [address] Sebastian Charles MD [address] [place] [address] Social History Tobacco Use Types [...] (12/25/2023) PTH 268(H) 16 - 80 pg/mL [place] 12/25/2023 12/26/2023 12: 52 PM CDT Narrative [facility] - 12/26/2023 Unless otherwise specified, test(s) performed at: [facility], [address] [place] [address] VARNISH BLENDER: Dariel Doyle M.D., Ph.D For any questions, please call customer service at FREQUENCY:MONTHLY Resulting Agency Comment Specimen source: Plasma Sebastian Charles MD LAB BLOOD ORDERABLES [facility] See order comments or contact [...] 12/25/2023 12/26/2023 12: 59 PM CDT Narrative [facility] - 12/26/2023 Unless otherwise specified, test(s) performed at: [facility], [address] [place] [address], [place] [id number] VARNISH BLENDER: Dariel Doyle M.D., Ph.D For any questions, please call customer service at FREQUENCY:MONTHLY Resulting Agency Comment Specimen source: Serum Sebastian Charles MD LAB BLOOD ORDERABLES [facility] See order comments or contact performing lab [...] 12/25/2023 12/26/2023 12: 59 PM CDT Narrative [facility] - 12/26/2023 Unless otherwise specified, test(s) performed at: [facility], [address] [place] [address], [place] [id number] VARNISH BLENDER: Dariel Doyle M.D., Ph.D For any questions, please call customer service at FREQUENCY:MONTHLY Resulting Agency Comment Specimen source: Blood Sebastian Charles MD LAB BLOOD ORDERABLES [facility] See order comments or contact performing lab Unknown, [place] documented in this encounter Visit Diagnoses Not on filedocumented in this encounter Care Teams Supervisor Propellant Charge Loading Relationship Specialty Start Date End Date Harish Silver MD [address] [place] [address] PCP - General 05/17/19 documented as of this encounter
--- OUTSIDE RECORDS SUMMARY | 2024-03-01 13:37 | XMS_ITS | Encounter Summary ---
Author Organization [facility] Address [address] [place] [address] Care Team Providers Care Social Science Professor Name Role Phone Harish Silver MD Primary Care Provider [phone] Encounter Details Date Type Department Care Team (Late st Contact Info) Description 01/31/2024 Orders Only [facility] [place] [address] [place] [address] Sebastian Charles MD [address] [place] [address] Social History Tobacco Use Types [...] 01/31/2024 02/01/2024 12: 44 PM CDT Narrative [facility] - 02/01/2024 Unless otherwise specified, test(s) performed at: [facility], [address] [place] [address], [place] [address] ANALYSIS MGR: Dariel Doyle M.D., Ph.D For any questions, please call customer service at FREQUENCY:MONTHLY Resulting Agency Comment Specimen source: Serum Sebastian Charles MD LAB BLOOD ORDERABLES [facility] See order comments or contact [...] 02/01/2024 Unless otherwise specified, test(s) performed at: [facility], [address] [place] [address], [place] [address] ANALYSIS MGR: Dariel Doyle M.D., Ph.D For any questions, please call customer service at FREQUENCY:MONTHLY Resulting Agency Comment Specimen source: Blood Sebastian Charles MD LAB BLOOD ORDERABLES [facility] See order comments or contact performing lab Unknown, [place] documented in this encounter Visit Diagnoses Not on filedocumented in this encounter Care Teams Social Science Professor Relationship Specialty Start Date End Date Harish Silver MD [address] [place] [address] PCP - General 05/17/19 documented as of this encounter
--- OUTSIDE RECORDS SUMMARY | 2024-03-01 13:37 | XMS_ITS | Encounter Summary ---
Author Organization [facility] Address [address] [place] [address] Care Team Providers Care Parcel Post Weigher Name Role Phone Harish Silver MD Primary Care Provider [phone] Encounter Details Date Type Department Care Team (Late st Contact Info) Description 12/08/2023 Treatment [facility] [place] [address] [place] [address] Sebastian Charles MD [address] [place] [address] Social History Tobacco Use Types [...] Name: David Castro : 1940 Chart #: [id number] Sex: M This patient was personally seen for a complete visit as part of routine monthly dialysis care. A review of the dialysis treatment, blood pressure, estimated dry weight, and recent lab values was made. These were discussed with the patient and staff as necessary. CUSTOMS OFFICER: Sebastian Charles MD LOCATION: [place] [phone] SCHEDULE: No Routine Schedule Subjective Tolerating dialysis [...] - looks excellent with no erythema per plasterer stuccojunior accountant bookkeeper List Medication Sig Start Date allopurinol 100 [...] by mouth twice a day RenaPlex-D (vit b,z-iy-psyt-selen-vit d3-e) 800 mcg-12.5 mg-2,000 unit tablet Take [...] on filedocumented in this encounter Care Teams Parcel Post Weigher Relationship Specialty Start Date End Date Harish Silver MD [address] [place] [address] PCP - General 05/17/19 documented as of this encounter
--- OUTSIDE RECORDS SUMMARY | 2024-03-01 13:37 | XMS_ITS | Encounter Summary ---
Author Organization [facility] Address [address] [place] [address] Care Team Providers Care Washing And Screening Plant Supervisor Name Role Phone Harish Silver MD Primary Care Provider [phone] Encounter Details Date Type Department Care Team (Late st Contact Info) Description 12/04/2023 Orders Only [facility] [place] [address] [place] [address] Sebastian Charles MD [address] [place] [address] Social History Tobacco Use Types [...] 12/04/2023 12/05/2023 12: [address] [facility] - 12/05/2023 Unless otherwise specified, test(s) performed at: [facility], [address] [place] [address], [place] [address] FOREPART RASPER: Dariel Doyle M.D., Ph.D For any questions, please call customer service at FREQUENCY:MONTHLY Resulting Agency Comment Specimen source: Serum Sebastian Charles MD LAB BLOOD ORDERABLES [facility] See order comments or [...] 12/05/2023 Unless otherwise specified, test(s) performed at: [facility], [address] [place] [address], [place] [address] FOREPART RASPER: Dariel Doyle M.D., Ph.D For any questions, please call customer service at FREQUENCY:MONTHLY Resulting Agency Comment Specimen source: Blood Sebastian Charles MD LAB BLOOD ORDERABLES [facility] See order comments or contact performing lab Unknown, [place] documented in this encounter Visit Diagnoses Not on filedocumented in this encounter Care Teams Washing And Screening Plant Supervisor Relationship Specialty Start Date End Date Harish Silver MD [address] [place] [address] PCP - General 05/17/19 documented as of this encounter
--- OUTSIDE RECORDS SUMMARY | 2024-03-01 13:37 | XMS_ITS | Encounter Summary ---
Author Organization [facility] Address [address] [place] [address] Care Team Providers Care Foreign Policy Officer Name Role Phone Harish Silver MD Primary Care Provider [phone] Encounter Details Date Type Department Care Team (Late st Contact Info) Description 02/14/2024 Treatment [facility] [place] [address] [place] [address] Sebastian Charles MD [address] [place] [address] Social History Tobacco Use Types [...] Name: David Castro : 1940 Chart #: [id number] Sex: M This patient was personally seen for a complete visit as part of routine monthly dialysis care. A review of the dialysis treatment, blood pressure, estimated dry weight, and recent lab values was made. These were discussed with the patient and staff as necessary. DIETARY AIDE COOK: Seabstian Charles MD LOCATION: [place] [phone] SCHEDULE: No Routine Schedule Subjective Tolerating dialysis [...] expressed interest in doing this (trip to [place] to visit family) Peritoneal Dialysis Access Assessment [...] on filedocumented in this encounter Care Teams Foreign Policy Officer Relationship Specialty Start Date End Date Harish Silver MD [address] [place] [address] PCP - General 05/17/19 documented as of this encounter
--- OUTSIDE RECORDS SUMMARY | 2024-03-01 13:37 | XMS_ITS | Clinical Summary ---
Author Organization [facility] [place] Address [address] [place] [address] Phone Care Team Providers Care Tnt Powder Worker Name Role Phone Harish Silver MD Primary Care Provider [phone] Encounters Date Type Department Care Team Description 02/14/2024 Orders Only [facility] [place] [address] [place] [address] Sebastian Charles MD 02/14/2024 [facility] [place] [facility] [facility] [place] [address] Sebastian Charles MD 01/31/2024 Orders Only [facility] [place] [address] [place] [address] Sebastian Charles MD 01/01/2024 Treatment [facility] [place] [address] [place] [address] Sebastian Charles MD 12/25/2023 Orders Only [facility] [place] [address] [place] [address] Sebastian Charles MD 12/08/2023 Treatment [facility] [place] [address] [place] [address] Sebastian Charles MD 12/04/2023 Orders Only [facility] [place] [address] [place] [address] Sebastian Charles MD from Last 3 Months [...] series) 1961 12/22/2008, 07/21/2008, 06/19/2008 Influenza Vaccine (#1) 2024 0, 05/28/2019, 06/13/2018, Additional history exists Pneumococcal Vaccine: [...] Urine Sebastian Charles MD LAB URINE ORDERABLES [facility] See order comments or contact performing [...] FLUIDS AND STOOLS ORDERABLES Performing Organization Address [facility] de Phone Number [facility] See order comments or contact performing lab Unknown, [place] * PD ADEQUACY (02/14/2024) Only the most recent of2 resultswithin the time period is included. Kt/V, Residual 2.42 [facility] 02/14/2024 02/15/2024 9:5 3 AM CDT Narrative [facility] - 02/15/2024 Unless otherwise specified, test(s) performed at: [facility], [address] [place] [address], [place] [address] FIRE BOSS: Dariel Doyle M.D., Ph.D For any questions, please call customer service at FREQUENCY:OTHER Resulting Agency Comment Specimen source: Urine Sebastian Charles MD LAB BODY FLUIDS AND STOOLS ORDERABLES Performing Organization Address [facility] de Phone Number [facility] Encore Alert [facility] See order comments or contact performing lab Unknown, [place] * PATIENT INFORMATION (02/14/2024) Only the most recent of3 resultswithin the time period is included. Urea Volume Distribution ([place]) 43.3 L [facility] 02/14/2024 02/15/2024 9:3 6 AM CDT Narrative [facility] - 02/15/2024 Unless otherwise specified, test(s) performed at: [facility], [address] [place] [address], [place] [address] FIRE BOSS: Dariel Doyle M.D., Ph.D For any questions, please call customer service at FREQUENCY:OTHER Resulting Agency Comment Specimen source: PD Fluid Sebastian Charles MD LAB BLOOD ORDERABLES Performing Organization Address [facility]/ZIP Co de Phone Number [facility] See order comments or contact performing lab Unknown, [place] * (ABNORMAL) [facility] Chemistry (02/14/2024) Only the most recent of5 resultswithin the time period is included. Pathologist [facility] BUN 49(H) 6 - 19 mg/dL [facility] 02/14/2024 02/15/2024 7:1 3 AM CDT Narrative [facility] - 02/15/2024 Unless otherwise specified, test(s) performed at: [facility], [address] [place] [address], [place] [address] FIRE BOSS: Dariel Doyle M.D., Ph.D For any questions, please call customer service at FREQUENCY:MONTHLY Resulting Agency Comment Specimen source: Serum Sebastian Charles MD LAB BLOOD ORDERABLES Performing Organization Address [facility] de Phone Number [facility] See order comments or contact performing lab Unknown, [place] * (ABNORMAL) HEMATOLOGY (01/31/2024) Only the most recent of3 resultswithin the time period is included. Neutrophils 70.8 40.0 - 75.0 % [facility] [...] 02/01/2024 Unless otherwise specified, test(s) performed at: [facility], [address] [place] [address], [place] [address] FIRE BOSS: Dariel Doyle M.D., Ph.D For any questions, please call customer service at FREQUENCY:MONTHLY Resulting Agency Comment Specimen source: Blood Sebastian Charles MD LAB BLOOD ORDERABLES [facility] See order comments or contact performing lab Unknown, [place] from Last 3 Months Care Teams Tnt Powder Worker Relationship Specialty Start Date End Date Harish Silver MD [address] [place] [address] PCP - General 05/17/19
--- OUTSIDE RECORDS SUMMARY | 2024-03-01 13:37 | XMS_ITS | Encounter Summary ---
Author Organization [facility] Address [address] [place] [address] Care Team Providers Care Millinery Designer Name Role Phone Harish Silver MD Primary Care Provider Encounter Details Date Type Department Care Team (Late st Contact Info) Description 01/01/2024 Treatment [facility] [place] [address] [place] [address] Sebastian Charles MD [address] [place] [address] Social History Tobacco Use Types [...] Name: David Castro : 1940 Chart #: [id number] Sex: M This patient was personally seen for a complete visit as part of routine monthly dialysis care. A review of the dialysis treatment, blood pressure, estimated dry weight, and recent lab values was made. These were discussed with the patient and staff as necessary. 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
[2024-03-01 13:41] LABS: INR 1.13 (0.91-1.10); Prothrombin Time 15.2 Seconds
[2024-03-01 16:46] LABS: Chloride* 104 mmol/L (96-114); Potassium* 3.7 mmol/L (3.6-5.1); Sodium* 139 mmol/L (135-149)
[2024-03-01 16:48] LABS: Creatinine* 4.3 mg/dL (0.5-1.5); Est. Creatinine Clearance* 12.81; Estimated Glomerular Filt Rate 13 ml/min
[2024-03-01 16:49] LABS: Anion Gap 8 mEq/L (7-15); Blood Urea Nitrogen* 46 mg/dL (7-30); Calcium* 8.7 mg/dL (8.4-10.6); Carbon Dioxide* 27 mmol/L (20-32); Glucose* 115 mg/dL (60-115)
[2024-03-01 17:01] LABS: Troponin I* 0.02 ng/mL (0.01-0.04)
== END 2024-03-01 20:30 | disposition short-term general hospital (02) ==
LOC: ED 13:33
PROVIDERS: Emergency Provider Emergency Medicine; PCP Family Medicine
DX: I63.9 Cerebral infarction, unspecified (principal); N18.9 Chronic kidney disease, unspecified
CPT/HCPCS: 36415; 70450; 70544; 70547; 70551; 80048; 83605; 84484; 85025; 85610; 93005; 99284; 99285; G0427; J7030

== ENCOUNTER 2024-03-01 20:32 | Outpatient (CLI) | payer MEDICARE, OTHER, SELFPAY ==
--- OUTSIDE RECORDS SUMMARY | 2024-03-06 20:31 | XMS_ITS | Clinical Summary ---
Author Organization [facility] Address [address] [place] [address] Care Team Providers Care Pasta Maker Name Role Phone Elsewhere, Pcp Primary Care Provider Unavailabl e Source Comments Patient records contain information from all sites at [facility]. For routine questions regarding patient records, call [phone] during business hours, M-F 8:00 AM - 5:00 PM Central Time. Record requests for emergency care only can be directed to [phone] at any time.[facility] Allergies Active Allergy Reactions Criticality Noted [...] Dispensed Refills Start Date End Date Status atorvastatin (Lipitor) 40 mg tablet Take 1 tablet (40 mg total) by mouth at bedtime. 30 tablet 03/04/2024 4 Active allopurinol (ZYLOPRIM) 100 mg tablet Take 100 mg by mouth every morning. 11/09/2018 Suspended calcitRIOL (ROCALTROL) 0.25 mcg capsule Take 1 capsule by mouth 3 (three) times a week. Monday, Monday, Monday12/27/2018 Suspended metoprolol tartrate (LOPRESSOR) 25 mg tablet Take 12.5 mg by mouth 2 (two) times a day. Suspended multivitamin renal failure (DIALYVITE) 100-1 mg tablet Take 1 tablet by mouth daily with dinner. 30 tablet 12/08/2021 Suspended Additional Information torsemide (DEMADEX) 20 mg tablet Take 1 tablet (20 mg total) by mouth daily. 12/12/2021 Suspended Additional Information amoxicillin (AMOXIL) 500 mg capsule Take 4 capsules by mouth once as needed (Dental procedures). 05/30/2022 Suspended docusate sodium (COLACE) 100 mg capsule Take 100 mg by mouth daily. Suspended gentamicin (GARAMYCIN) 0.1 % cream Apply 1 Application topically as needed. 06/01/2022 Suspended pantoprazole (PROTONIX) 40 mg EC tablet Take 40 mg by mouth 2 (two) times a day before breakfast and dinner. 06/04/2022 Suspended cholecalciferol (VITAMIN D3) 50 mcg (2,000 Unit) tablet Take 1 tablet by mouth daily. 08/29/2022 Suspended triamcinolone (KENALOG) 0.1 % cream Apply 1 Application topically as needed for irritation. 09/20/2022 Suspended famotidine (PEPCID) 20 mg tablet TAKE 1 TABLET BY MOUTH AT BEDTIME 100 tablet 2 07/25/2023 Suspended Additional Information sucralfate (CARAFATE) 100 mg/mL suspension Take 10 mL (1 g total) by mouth every 6 (six) hours as needed (If esophageal bleeding.). 420 mL 1 08/07/2023 Suspended Additional Information apixaban (ELIQUIS) 2.5 mg tablet Take 1 tablet (2.5 mg total) by mouth 2 (two) times a day. 60 tablet 5 10/17/2023 4 Discontinued(S top Taking at Discharge) clopidogreL (PLAVIX) 75 mg tablet Take 1 tablet (75 mg total) by mouth daily. Start after Eliquis therapy completed and continue lifelong as tolerated. 90 tablet 3 04/17/2024 Suspended Additional Information Elana-[facility] Rx 1-60-300 mg-mg-mcg tablet Take 1 tablet by mouth daily. 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 Discharge Disposition: Home or Self Care 03/01/2024 9:51 PM CDT - Present Hospital Encounter [facility], [facility], [facility], Second floor [address] [place] [phone] Stuart Mohan M.D. Stroke (HCC) [I63.9] (Primary Dx); Stroke (HCC); Lack Of Coordination [R27.9]; Deficit Cognitive Communication [R41.841]; Decline Functional Status [R53.81] 03/01/2024 Intake [facility] from Last 3 Months Immunizations Name Administration [...] drink = 0.6 oz pur e alcohol) [facility] [employer] Answer Date Recorded In the past 12 months has e [employer], [employer], oil, or water [employer] threatened to shut off services in your home? No 03/01/2024 Humiliation, Afraid, Rape, and Kick questionnair e Answer Date Recorded Within the last year, have y ou been afraid of your partner or ex-partner? No 03/01/2024 Within the last year, have y ou been humiliated or emotionally abused in other ways by your partner or ex-partner? No Within the last year, have y ou been kicked, hit, slapped, or otherwise physically hurt by your partner or ex-partner? No 03/01/2024 Within the last year, have y ou been raped or forced to have any kind of sexual activity by your partner or ex-partner? No 03/01/2024 Social Connection and Isolat ion Panel [NHANES] Answer Date Recorded In a typical week, how many times do you talk on the phone with family, friends, or neighbors? Patient declined 04/11/2022 How often do you get togethe r with friends or relatives? Patient declined 04/11/2022 How often do you attend [facility] or islam services? More than 4 times per year 04/11/2022 Do you belong to any clubs o r organizations such as uatsdin groups, unions, fraternal [...] and heating? Not hard at all 05/13/2023 [facility] Occupational Stress Questionnaire Answer [...] the money to buy more. Never true 03/01/20 24 Within the past 12 months, t he food you bought just didn't last and you didn't have money to get more. Never true 03/01/2024 PRAPARE - Transportation Answer Date Re corded In the past 12 months, has l ack of transportation kept you from medical appointments or from getting medications? No 02/18 In the past 12 months, has l ack of transportation kept you from meetings, work, or from getting things needed for daily living? No 03/01/2024 Nutrition Answer Date Recorded On average, how many serving s of [...] living situation today? I have a [facility] place to live 03/01/2024 Education Answer Date Recorded What is the [...] Sign Reading Time Taken Comments Blood Pressure 115/72 03/06/2024 2:40 PM CDT Pulse 72 03/06/2024 2:40 PM CDT Temperature 36.8 ??C (98.2 ??F) 03/06/2024 2:40 PM CD T Respiratory Rate 20 03/06/2024 2:40 PM CDT Oxygen Saturation 93% 03/06/2024 2:40 PM CDT Inhaled Oxygen Concentration - - Weight 80.9 kg (178 lb 5.6 oz) 03/06/2024 6:20 A M CDT Height 172.7 cm (5' 7.99) 03/02/2024 4:12 PM CD T Body Mass Index 27.12 03/02/2024 4:12 PM CDT Plan of Treatment Health Maintenance Due Date Last Done Comments COVID-19 Vaccine (2022-2 4 season) 2023 05/19/2022, 05/18/2021, 10/14/2020, Additional history exists Depression Screening (Annual PHQ-2) 08/21/2023 Influenza Vaccine (#1) 2024 , 05/19/2022, 05/18/2021, Additional history exists DTaP,Tdap,and Td Vaccines (2 - Td or Tdap) 07/10/2024 07/10/2014, 03/18/2008 Office Visit for Blood Press ure Check / Re-check 03/01/2025 03/01/2024 Creatinine Level (Kidney Fun ction Test) 03/06/2025 03/06/2024, 03/05/2024, 03/04/2024, Additional history exists Potassium Level 03/06/2025 03/06/2024, 02/18, 03/04/2024, Additional history exists Sodium Level 03/06/2025 03/06/2024, 02/18, 03/04/2024, Additional history exists Pneumococcal vaccine (65+ years) Completed 11/05/19, 02/02/2009 Zoster Vaccines Completed 02/14/2019, 11/20, 04/08/2010 Fall Risk Screen (Annual) Completed 11/27/2023 Medical Devices Implanted Type Area Med Surg Rn Device Identifier Shelf Expiration Date Model / Serial / Lot Osteomed-Plate Straight 2 Hole Med - Baptiste [id number] Implanted:Qty: 1 on 06/19/2002 Hardware e.g. pins/screws/ rods [employer] Description:Device Manufactu rer - [employer]. Device Status Text - [id number]. Osteomed-Plate Josef Hole Large - Baptiste [id number] Implanted:Qty: 2 on 06/19/2002 Hardware e.g. pins/screws/ rods [employer] Description:Device Manufactu rer - [employer]. Device Status Text - [id number]. Osteomed-Screw Auto-Drive 1.6 X 4 - Baptiste [id number] Implanted:Qty: 16 on 06/19/2002 Hardware e.g. pins/screws/ rods [employer] Description:Device Manufactu rer - [employer]. Device Status Text - [id number]. Dev Kelsie [employer] [facility] Pro Del Sys 27 - [id number] Implanted:Qty: 1 on 10/17/2023 by Radha Andrade M.B.B.S. at [facility] Mesh or Patch [employer] 05/07/2026 [id number] / / [id number] Procedures The patient is currently admitted. The information in this section might not be complete until the patient is discharged. Procedure Name Priority Date/Time Associated Diagnosis Comments CBC WITHOUT DIFFERENTIAL, B Routine 03/06/2024 10:40 AM CDT BASIC METABOLIC PANEL, S/P Routine 03/06/2024 10:40 AM CDT CONTINUOUS CYCLING PERITONEAL DIALYSIS (CCPD) Routine 03/05/2024 11:10 AM CDT CBC WITHOUT DIFFERENTIAL, B Routine 03/05/2024 5:55 AM CDT BASIC METABOLIC PANEL, S/P Routine 03/05/2024 5:55 AM CDT CONTINUOUS CYCLING PERITONEAL DIALYSIS (CCPD) Routine 03/04/2024 1:01 PM CDT (JASON) 2D WITH COLOR AND DOPPLER Routine 03/04/2024 10:56 AM CDT CBC WITHOUT DIFFERENTIAL, B Routine 03/04/2024 5:48 AM CDT BASIC METABOLIC PANEL, S/P Routine 03/04/2024 5:48 AM CDT CONTINUOUS CYCLING PERITONEAL DIALYSIS (CCPD) Routine 03/03/2024 8:11 AM CDT CBC WITHOUT DIFFERENTIAL, B Routine 03/03/2024 5:25 AM CDT BASIC METABOLIC PANEL, S/P Routine 03/03/2024 5:24 AM CDT HEPATIC FUNCTION PANEL, S Routine 03/03/2024 5:17 AM CDT DX ELBOW RIGHT 3+ VIEWS RAD - Routine (most inpatients and all outpatients) 03/02/2024 2:51 PM CDT CONTINUOUS CYCLING PERITONEAL DIALYSIS (CCPD) Routine 03/02/2024 9:42 AM CDT BASIC METABOLIC PANEL, S/P Routine 03/02/2024 5:37 AM CDT CBC WITH DIFFERENTIAL, B Routine 03/02/2024 5:37 AM CDT HBS ANTIBODY, SERUM Routine 03/02/2024 5 :34 AM CDT HEPATITIS B SURFACE ANTIGEN Routine 03/02/2024 5:34 AM CDT ECG Routine 03/02/2024 1:[address] CHEST WITHOUT IV CONTRAST RAD - Routine (most inpatients and all outpatients) 03/02/2024 12:24 AM CDT COMPREHENSIVE METABOLIC PANEL, S/P Timed 03/01/2024 10:11 PM CDT CBC WITH DIFFERENTIAL, B Timed 03/01/2024 10:11 PM CDT LIPID PANEL, S Timed 03/01/2024 10:11 PM CDT THYROID-STIMULATING HORMONE-SENSITIVE (S-TSH) Timed 03/01/2024 10:11 PM CDT HEMOGLOBIN A1C, B Timed 03/01/2024 10: 11 PM CDT OUTSIDE MR NEURO Routine 03/01/2024 5:40 PM CDT OUTSIDE MR NEURO Routine 03/01/2024 5:30 PM CDT OUTSIDE MR NEURO Routine 03/01/2024 4:[address] NEURO Routine 03/01/2024 1:30 PM CDT from Last 3 Months Results * (ABNORMAL) CBC without Differential (03/06/2024 10:40 AM CDT) Only the most recent of4 resultswithin the time period is included. Hemoglobin 10.9(L) 13.2 - 16.6 g/dL 03/06/2024 12:02 PM CDT DTL Hematocrit 34.9(L) 38.3 - 48.6 % 03/06/2024 12:02 PM CDT DTL Erythrocytes 3.64(L) 4.35 - 5.65 x10(12)/L 03/06/2024 12:02 PM CDT DTL MCV 95.9 78.2 - 97.9 fL 03/06/2024 12:02 PM CDT DTL RBC Distrib Width 13.2 11.8 - 14.5 % 03/06/2024 12:02 PM CDT DTL Platelet Count 138 135 - 317 x10(9)/L 03/06/2024 12:02 PM CDT DTL Leukocytes 5.0 3.4 - 9.6 x10(9)/L 03/06/2024 12:02 PM CDT DTL Blood (Blood, Venous) 03/06/2024 10:40 AM CDT 03/06/2024 11:24 AM CDT Abiamel Giles LAB BLOO D [facility] [address] [place] [address], [facility] [address] [place] [address] * (ABNORMAL) Basic Metabolic Panel (03/06/2024 10:40 AM CDT) Only the most recent of5 resultswithin the time period is included. Potassium, S 3.7 3.6 - 5.2 mmol/L 03/06/2024 11:56 AM CDT DTL Sodium, S 139 135 - 145 mmol/L 03/06/2024 11:56 AM CDT DTL Chloride, S 102 98 - 107 mmol/L 03/06/2024 11:56 AM CDT DTL Bicarbonate, S 28 22 - 29 mmol/L 03/06/2024 11:56 AM CDT DTL Anion Gap 9 7 - 15 03/06/2024 11:56 AM CDT DTL BUN (Blood Urea Nitrogen), S 48(H) 8 - 24 mg/dL 03/06/2024 11:56 AM CDT DTL Creatinine 4.50(H) 0.74 - 1.35 mg/dL 03/06/2024 11:56 AM CDT DTL Estimated GFR (eGFR) <15(L) >=60 mL/min/BSA 03/06/2024 11:56 AM CDT DTL Comment: Estimated GFR calculated using the 2020 CKD_EPI creatinine equation. Calcium, Total, S 8.4(L) 8.8 - 10.2 mg/dL 03/06/2024 11:56 AM CDT DTL Glucose, S 86 70 - 140 mg/dL 03/06/2024 11:56 AM CDT DTL Blood (Blood, Venous) 03/06/2024 10:40 AM CDT 03/06/2024 11:40 AM CDT Abimael Giles LAB [facility] [address] [place] [address], [address] [address] * (JASON) 2D WITH COLOR AND DOPPLER (03/04/2024 10:56 AM CDT) Ejection Fraction 60 MC CV EIMS Mid-Ascending Aorta 37 MC CV EIMS TR Vmax 2.27 MC CV EIMS MV mean gradient 4 MC CV EIMS TV Regurgitant Volume 25 MC CV EIMS Anatomical Region Laterality Modality Echocardiography 03/04/2024 8:48 AM CDT Impressions 03/04/2024 1:20 PM CDT PRE-SEDATION ASSESSMENT & CONSENT (performed immediately prior to the start of the procedure): The goals, risks and alternatives to moderate sedation and the transesophageal echo were explained to the patient, questions were answered and consent was given to proceed. The physician reviewed the patient's history, medication list, allergies, and review of systems, and the findings as documented in the still operator helper and also performed a pertinent examination including a heart, airway and lung assessment. Mallampati Assessment: Class II. Sedation plan: Transesophageal echo - moderate sedation. ASA physical status score: Class III. The patient's identity and all needed equipment were confirmed and a final confirmatory pause was performed by the team immediately prior to start. PROCEDURAL ECHO FINDINGS: Transesophageal echocardiogram performed at the request of the primary fiscal services manager. Adult probe inserted without difficulty. 3D imaging was performed to evaluate ??Watchman device, mitral and aortic valve which could not be adequately assessed by 2D imaging. LEFT VENTRICLE:Normal left ventricular chamber size by visual estimate. Estimated left ventricular ejection fraction range 60% - 65%. RIGHT VENTRICLE:Normal right ventricular chamber size. Normal right ventricular systolic function. 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 ?? No apparent leak around Watchman device with color Doppler imaging. Enlarged left atrial size by visual estimate. No left atrial appendage thrombus. Enlarged right atrial size by visual estimate. CARDIAC VALVES:Trileaflet aortic valve. Calcific aortic valve stenosis with significant color flow aliasing. Transgastric images not obtained due to patient's history of achalasia and resistance with passing the probe. Please obtain formal TTE for further evaluation of degree of stenosis. Mild-moderate aortic valve regurgitation. Calcified mitral annulus. Thickened mitral valve. Mitral valve diastolic mean Doppler gradient 4 mmHg (heart rate 74 BPM). Mild mitral valve regurgitation. Normal pulmonary valve. Trivial pulmonary valve regurgitation. Thickened tricuspid valve. Moderate tricuspid valve regurgitation. Tricuspid regurgitation ERO (PISA) 0.36 cm2. Tricuspid regurgitant volume (PISA) 25 ml. OTHER ECHO FINDINGS:Normal mid ascending aorta diameter of 37 mm. Upper limit of normal of the mid ascending aorta, for age, sex and BSA is 43 mm. 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 Normally connected pulmonary veins. Pulmonary artery bifurcation is normal. Normal superior vena cava. No shunt at atrial level by color flow imaging. No intracardiac mass or thrombus identified. No ??pericardial effusion. PROCEDURE NOTES:Procedure performed with appropriate level of sedation. A trained independent observer assisted with monitoring the patient's level of consciousness and physiologic status throughout the procedure, see nursing documentation. The patient tolerated the sedation and procedure well and was released awake, alert, and in good condition. Transesophageal echocardiogram completed without complications. Transgastric images not acquired due to the concern for gastro-esophageal pathology. See Sedation Narrator or other pertinent record in [facility] for additional procedure and sedation information. Physician signature for procedural medications and patient discharge when DC criteria met. For the complete report, see the Order-Level Documents. Narrative 03/04/2024 1:20 PM CDT For the complete report, see the Order-Level Documents. Hemodynamics Heart Rate: 75 BPM Blood Pressure: 121 / 70 mmHg ECG: Atrial fibrillation Final Impressions 1. 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 2. No communication between left atrium and left atrial appendage by color flow. No evidence of device-associated thrombus or intracardiac thrombus. 3. 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 Transgastric images not obtained due to patient's history of achalasia and resistance with passing the probe. Recommend formal TTE for further evaluation of degree of stenosis. 4. Calcified mitral annulus. Mean gradient 4 mmHg (HR 74 BPM). Mild mitral regurgitation. 5. Moderate tricuspid valve regurgitation (ERO 0.36 cm2; RV 25 ml). Tricuspid annulus dilatation (4.1 cm). 6. Estimated left ventricular ejection fraction range 60% - 65%. Normal right ventricular systolic function. 7. Intact atrial septum without shunt by color Doppler. (No [id number] shunt with agitated saline on most recent JASON 11/27/2023). 8. 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 Procedure Note Milagro Hardy M.D. - 03/04/2024 For the complete report, see the Order-Level Documents. Hemodynamics Heart Rate: 75 BPM Blood Pressure: 121 / 70 mmHg ECG: Atrial fibrillation Final Impressions 1. 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 2. No communication between left atrium and left atrial appendage by colorflow. No evidence of device-associated thrombus or intracardiacthrombus. 3. Calcific aortic valve stenosis (tricuspid) with significant color flowaliasing. Transgastric images not obtained due to patient's history ofachalasia and resistance with passing the probe. Recommend formal TTE forfurther evaluation of degree of stenosis. 4. Calcified mitral annulus. Mean gradient 4 mmHg (HR 74 BPM). Mild mitralregurgitation. 5. Moderate tricuspid valve regurgitation (ERO 0.36 cm2; RV 25 ml).Tricuspid annulus dilatation (4.1 cm). 6. Estimated left ventricular ejection fraction range 60% - 65%. Normalright ventricular systolic function. 7. Intact atrial septum without shunt by color Doppler. (No [id number] with agitated saline on most recent JASON 11/27/2023). 8. 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 Findings PRE-SEDATION ASSESSMENT & CONSENT (performed immediately prior to thestart of the procedure): The goals, risks and alternatives to moderatesedation and the transesophageal echo were explained to the patient,questions were answered and consent was given to proceed. The physicianreviewed the patient's history, medication list, allergies, and review ofsystems, and the findings as documented in the still operator helper and alsoperformed a pertinent examination including a heart, airway and lungassessment. Mallampati Assessment: Class II. Sedation plan:Transesophageal echo - moderate sedation. ASA physical status score: ClassIII. The patient's identity and all needed equipment were confirmed and afinal confirmatory pause was performed by the team immediately prior tostart. PROCEDURAL ECHO FINDINGS: Transesophageal echocardiogram performedat the request of the primary fiscal services manager. Adult probe insertedwithout difficulty. 3D imaging was performed to evaluate Watchman device,mitral and aortic valve which could not be adequately assessed by 2Dimaging. LEFT VENTRICLE:Normal left ventricular chamber size by visual estimate.Estimated left ventricular ejection fraction range 60% - 65%. RIGHT VENTRICLE:Normal right ventricular chamber size. Normal rightventricular systolic function. ATRIA:Status post WATCHMAN left atrial appendage occlusion deviceplacement (27mm, 10.17.2023) The WATCHMAN left atrial appendage occlusiondevice is visualized and is well-expanded within the left atrial appendagewith no apparent left atrial appendage thrombus. No apparent leak aroundWatchman device with color Doppler imaging. Enlarged left atrial size byvisual estimate. No left atrial appendage thrombus. Enlarged right atrialsize by visual estimate. CARDIAC VALVES:Trileaflet aortic valve. Calcific aortic valve stenosiswith significant color flow aliasing. Transgastric images not obtained dueto patient's history of achalasia and resistance with passing the probe.Please obtain formal TTE for further evaluation of degree of stenosis.Mild-moderate aortic valve regurgitation. Calcified mitral annulus.Thickened mitral valve. Mitral valve diastolic mean Doppler gradient 4mmHg (heart rate 74 BPM). Mild mitral valve regurgitation. Normalpulmonary valve. Trivial pulmonary valve regurgitation. Thickenedtricuspid valve. Moderate tricuspid valve regurgitation. Tricuspidregurgitation ERO (PISA) 0.36 cm2. Tricuspid regurgitant volume (PISA) 25ml. OTHER ECHO FINDINGS:Normal mid ascending aorta diameter of 37 mm. 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 Normallyconnected pulmonary veins. Pulmonary artery bifurcation is normal. Normalsuperior vena cava. No shunt at atrial level by color flow imaging. Nointracardiac mass or thrombus identified. No pericardial effusion. PROCEDURE NOTES:Procedure performed with appropriate level of sedation. Atrained independent observer assisted with monitoring the patient's levelof consciousness and physiologic status throughout the procedure, seenursing documentation. The patient tolerated the sedation and procedurewell and was released awake, alert, and in good condition. Transesophagealechocardiogram completed without complications. Transgastric images notacquired due to the concern for gastro-esophageal pathology. See SedationNarrator or other pertinent record in [facility] for additional procedure andsedation information. Physician signature for procedural medications andpatient discharge when DC criteria met. For the complete report, see the Order-Level Documents. Pham Rome M.D. CV ECHO PROCEDURES * (ABNORMAL) Hepatic Function Panel (03/03/2024 5:17 AM CDT) Bilirubin, Total, S 0.3 0.0 - 1.2 mg/dL 03/03/2024 8:41 AM CDT DTL Bilirubin, Direct, S <0.2 0.0 - 0.3 mg/dL 03/03/2024 8:41 AM CDT DTL Aspartate Aminotransferase (AST), S 24 8 - 48 U/L 03/03/2024 8:41 AM CDT DTL Alanine Aminotransferase (ALT), S 11 7 - 55 U/L 03/03/2024 8:41 AM CDT DTL Alkaline Phosphatase, S 216(H) 40 - 129 U/L 03/03/2024 8:41 AM CDT DTL Albumin, S 3.3(L) 3.5 - 5.0 g/dL 03/03/2024 8:41 AM CDT DTL Protein, Total, S 5.7(L) 6.3 - 7.9 g/dL 03/03/2024 8:41 AM CDT DTL Blood (Blood, Venous) 03/03/2024 5:17 AM CDT 03/03/2024 7:56 AM CDT Abimael Giles LAB BLOO D [facility] [address] [place] [address], [facility] DTL [facility] [address] [place] [address] * DX Elbow Right 3+ Views (03/02/2024 2:51 PM CDT) Anatomical Region Laterality Modality Upper Extremity, Elbow, Musc uloskeletal RST LOS, Musculoskeletal ARZ LOS, Muskuloskeletal FLA LOS Right Digit al Radiography Impressions 03/02/2024 3:58 PM CDT No acute fracture or traumatic malalignment. Possible small elbow joint effusion. Demineralization. Vascular calcifications. Peripheral IV in the antecubital fossa. Narrative 03/02/2024 3:58 PM CDT EXAM: ??DX ELBOW RIGHT 3+ VIEWS Procedure Note Gregory Alicea M.D. - 03/02/2024 EXAM: DX ELBOW RIGHT 3+ VIEWS IMPRESSION: No acute fracture or traumatic malalignment. Possible small elbow jointeffusion. Demineralization. Vascular calcifications. Peripheral IV in theantecubital fossa. Pham Rome M.D. IMG DIAGNOSTIC IMAGI NG PROCEDURES * (ABNORMAL) CBC with Differential, Blood (03/02/2024 5:37 AM CDT) Only the most recent of2 resultswithin the time period is included. Hemoglobin 11.2(L) 13.2 - 16.6 g/dL 03/02/2024 6:11 AM CDT DTL Hematocrit 35.8(L) 38.3 - 48.6 % 03/02/2024 6:11 AM CDT DTL Erythrocytes 3.71(L) 4.35 - 5.65 x10(12)/L 03/02/2024 6:11 AM CDT DTL MCV 96.5 78.2 - 97.9 fL 03/02/2024 6:11 AM CDT DTL RBC Distrib Width 13.2 11.8 - 14.5 % 03/02/2024 6:11 AM CDT DTL Platelet Count 151 135 - 317 x10(9)/L 03/02/2024 6:11 AM CDT DTL Leukocytes 4.7 3.4 - 9.6 x10(9)/L 03/02/2024 6:11 AM CDT DTL Neutrophils 3.27 1.56 - 6.45 x10(9)/L 03/02/2024 6:11 AM CDT DHPM Lymphocytes 0.45(L) 0.95 - 3.07 x10(9)/L 03/02/2024 6:11 AM CDT DTL Monocytes 0.48 0.26 - 0.81 x10(9)/L 03/02/2024 6:11 AM CDT DTL Eosinophils 0.45 0.03 - 0.48 x10(9)/L 03/02/2024 6:11 AM CDT DTL Basophils 0.03 0.01 - 0.08 x10(9)/L 03/02/2024 6:11 AM CDT DTL Blood (Blood, Venous) 03/02/2024 5:37 AM CDT 03/02/2024 6:03 AM CDT Renae Manzanares M.D. LAB BLOOD ADD-ON [facility] [address] [place] [address], [place] DTL [facility] [address] [place] [address] [facility] [address] [place] [address] * HBs Antibody, Serum (03/02/2024 5:34 AM CDT) [facility] HBs Antibody, S Positive 1:44 PM CDT [facility] Comment: Patient is considered to have been exposed to HBV or immune from HBV vaccination. ----REFERENCE VALUE---- Unvaccinated: Negative Vaccinated: Positive HBs Antibody, Quantitative, S 621 mIU/mL 03/02/2024 1:44 PM CDT [facility] Comment: ----REFERENCE VALUE---- Unvaccinated: <8.5 mIU/mL Vaccinated: >=11.5 mIU/mL Blood 03/02/2024 5:34 AM CDT 03/02/2024 12:50 PM CDT Anika Lara APRN, C.N.P., M.S.N. LAB MICROBIOLOGY - BLOOD ORDERABLES Performing Organization Address [facility]/ZIP Co de Phone Number [facility] [address] [place] [address] [place] [address] * Hepatitis B Surface Antigen (03/02/2024 5:34 AM CDT) Pathologist [facility] HBs Antigen, S Negative Negative 03/02/2024 1:44 PM CDT [facility] Blood (Blood, Venous) 03/02/2024 5:34 AM CDT 03/02/2024 12:50 PM CDT Anika Lara APRN, C.N.P., M.S.N. LAB MICROBIOLOGY - BLOOD ORDERABLES Performing Organization Address City/[facility]/ZIP Co de Phone Number [facility] [address] [place] [address] [place] [address] * ECG 12 Lead (03/02/2024 1:48 AM CDT) Pathologist [facility] Ventricular Rate ECG/Min 62 BPM MUSE QRSD Interval 124 ms MUSE QT Interval 432 ms MUSE QTC Interval 438 ms MUSE R [place] 19 degrees MUSE T Wave [place] 72 degrees MUSE 03/02/2024 1:48 AM CDT 03/02/2024 1:54 AM CDT Impressions MUSE - 03/02/2024 1:54 AM CDT Atrial fibrillation Non-specific intra-ventricular conduction delay Nonspecific ST and T wave abnormality When compared with ECG of 16-Oct-2023 15:35, Atrial fibrillation has replaced Sinus rhythm Reviewed by NICHOL Laura Narrative Procedure Note Sandor Mims M.D., M.P.H. - 03/02/2024 IMPRESSION: Atrial fibrillation Non-specific intra-ventricular conduction delay Nonspecific ST and T wave abnormality When compared with ECG of 16-Oct-2023 15:35, Atrial fibrillation has replaced Sinus rhythm Reviewed by NICHLO Laura Renae Manzanares M.D. ECG ORDERABLES MUSE NA * CT Chest without IV Contrast (03/02/2024 12:24 AM CDT) Anatomical Region Laterality Modality Chest, Thoracic RST LOS, Tho racic ARZ LOS, Thoracic FLA LOS N/A Computed Tomography, Compute d Tomography Impressions 03/02/2024 8:08 AM CDT 1. ??Unable to evaluate for proximal embolic source in the absence of intravenous contrast. 2. ??New likely infectious/inflammatory groundglass opacities in the right lung. 3. ??New small left pleural effusion. 4. ??New indeterminate right middle lobe nodule measuring 3 mm. Recommend follow-up. 5. ??Small volume ascites in the upper abdomen. Narrative 03/02/2024 8:08 AM CDT EXAM: CT CHEST WITHOUT IV CONTRAST COMPARISON: Chest CT 03/02/2022. FINDINGS: Exam performed without contrast due to patient refusal. New peripheral groundglass opacity in the right upper lobe posteriorly (3/60). New ill-defined groundglass opacity in the peripheral right middle lobe laterally (3/137). New 3 mm right middle lobe nodule (3/122). Redemonstrated right lower lobe round atelectasis. Similar lower lung predominant peripheral reticulation. Similar loculated small right pleural effusion with pleural thickening. New small left pleural effusion. Small volume ascites in the upper abdomen. Redemonstrated small-moderate pericardial effusion. Patulous esophagus containing fluid and debris. Severe coronary artery disease. Left atrial appendage occlusion device. Aortic leaflet and mitral annulus calcification. Left atrial enlargement. Procedure Note Ernesto Arvizu M.D. - 03/02/2024 EXAM: CT CHEST WITHOUT IV CONTRAST COMPARISON: Chest CT 03/02/2022. FINDINGS: Exam performed without contrast due to patient refusal. New peripheral groundglass opacity in the right upper lobe posteriorly(3/60). New ill-defined groundglass opacity in the peripheral right middlelobe laterally (3/137). New 3 mm right middle lobe nodule (3/122).Redemonstrated right lower lobe round atelectasis. Similar lower lung predominant peripheral reticulation. Similar loculated small right pleural effusion with pleural thickening.New small left pleural effusion. Small volume ascites in the upperabdomen. Redemonstrated small-moderate pericardial effusion. Patulousesophagus containing fluid and debris. Severe coronary artery disease. Left atrial appendage occlusion device. Aorticleaflet and mitral annulus calcification. Left atrial enlargement. IMPRESSION: 1. Unable to evaluate for proximal embolic source in the absence ofintravenous contrast. 2. New likely infectious/inflammatory groundglass opacities in the rightlung. 3. New small left pleural effusion. 4. New indeterminate right middle lobe nodule measuring 3 mm. Recommendfollow- up. 5. Small volume ascites in the upper abdomen. Renae Manzanares M.D. [facility] [place]ED[place] * Lipid Panel (03/01/2024 10:11 PM CDT) Triglycerides 82 mg/dL 03/01/2024 11:04 PM CDT DTL Comment: ----REFERENCE VALUE---- Normal: <150 mg/dL Borderline High: 150-199 mg/dL High: 200-499 mg/dL Very High: > or =500 mg/dL Cholesterol, Total 155 mg/dL 2023 11:04 PM CDT DTL Comment: ----REFERENCE VALUE---- Desirable: < 200 mg/dL Borderline High: 200 - 239 mg/dL High: > or = 240 mg/dL Cholesterol, LDL, Calculated 83 mg/dL 03/01/2024 11:04 PM CDT DTL Comment: ----REFERENCE VALUE---- Desirable: <100 mg/dL Above Desirable: 100-129 mg/dL Borderline High: 130-159 mg/dL High: 160-189 mg/dL Very High: >=190 mg/dL ----ADDITIONAL INFORMATION---- LDL cholesterol calculated using the Back/NIH equation. Cholesterol, HDL, S 56 >=40 mg/dL 03/01/2024 11:04 PM CDT DTL Cholesterol, Non-HDL, Calculated 99 mg/dL 03/01/2024 11:04 PM CDT DTL Comment: ----REFERENCE VALUE---- Desirable: <130 mg/dL Above Desirable: 130-159 mg/dL Borderline High: 160-189 mg/dL High: 190-219 mg/dL Very High: > or =220 mg/dL Fasting (8 HR or more) No 03/01/2024 10:11 PM CDT DTL Blood (Blood, Venous) 03/01/2024 10:11 PM CDT 03/01/2024 10:41 PM CDT Stuart Mohan M.D. LAB BLOOD ADD-ON [facility] [address] [place] [address], [facility] [address] [place] [address] * S-TSH (Thyroid-Stimulating Hormone - Sensitive) (03/01/2024 10:11 PM CDT) TSH, Sensitive 2.2 0.3 - 4.2 mIU/L 03/01/2024 11:04 PM CDT DTL Blood (Blood, Venous) 03/01/2024 10:11 PM CDT 03/01/2024 10:41 PM CDT Stuart Mohan M.D. LAB BLOOD ADD-ON Performing Organization Address City/[facility]/ZIP Co de Phone Number [facility] [address] [place] [address] * Hemoglobin A1c (03/01/2024 10:11 PM CDT) Hemoglobin A1c, B 5.5 4.0 - 5.6 % 03/01/2024 10:49 PM CDT DTL Blood (Blood, Venous) 03/01/2024 10:11 PM CDT 03/01/2024 10:26 PM CDT Stuart Mohan M.D. LAB BLOOD ADD-ON Performing Organization Address [facility] Co de Phone Number [facility] [address] [place] [address] * (ABNORMAL) Comprehensive Metabolic Panel (03/01/2024 10:11 PM CDT) Pathologist [facility] Potassium, S 4.1 3.6 - 5.2 mmol/L 03/01/2024 11:04 PM CDT DTL Sodium, S 143 135 - 145 mmol/L 03/01/2024 11:04 PM CDT DTL Chloride, S 106 98 - 107 mmol/L 03/01/2024 11:04 PM CDT DTL Bicarbonate, S 28 22 - 29 mmol/L 03/01/2024 11:04 PM CDT DTL Anion Gap 9 7 - 15 03/01/2024 11:04 PM CDT DTL BUN (Blood Urea Nitrogen), S 42(H) 8 - 24 mg/dL 03/01/2024 11:04 PM CDT DTL Creatinine 4.67(H) 0.74 - 1.35 mg/dL 03/01/2024 11:04 PM CDT DTL Estimated GFR (eGFR) <15(L) >=60 mL/min/BS A 03/01/2024 11:04 PM CDT DTL Comment: Estimated GFR calculated using the 2021 CKD_EPI creatinine equation. Calcium, Total, S 8.5(L) 8.8 - 10.2 mg/dL 03/01/2024 11:04 PM CDT DTL Glucose, S 101 70 - 140 mg/dL 03/01/2024 11:04 PM CDT DTL Protein, Total, S 6.0(L) 6.3 - 7.9 g/dL 03/01/2024 11:04 PM CDT DTL Albumin, S 3.4(L) 3.5 - 5.0 g/dL 03/01/2024 11:04 PM CDT DTL Aspartate Aminotransferase (AST), S 26 8 - 48 U/L 03/01/2024 11:04 PM CDT DTL Alkaline Phosphatase, S 246(H) 40 - 129 U/L 03/01/2024 11:04 PM CDT DTL Alanine Aminotransferase (ALT), S 14 7 - 55 U/L 03/01/2024 11:04 PM CDT DTL Bilirubin, Total, S 0.4 0.0 - 1.2 mg/dL 03/01/2024 11:04 PM CDT DTL Blood (Blood, Venous) 03/01/2024 10:11 PM CDT 03/01/2024 10:41 PM CDT Stuart Mohan M.D. [place] [address], [facility] [address] [place] [address] * MR Angio Neck wo Con-Outside MR Neuro (03/01/2024 5:40 PM CDT) Only the most recent of3 resultswithin the time period is included. 03/01/2024 5:38 PM CDT Narrative [facility] - 03/01/2024 7:16 PM CDT This order has been created and auto-finalized to support the import of outside images. If available, original interpretation can be found on the Media Tab in Chart Review, in Document Viewer, as an image in QREADS or as an Addendum. If a re-interpretation or overread is required please follow defined workflow.?? Provider Not In System IMG MRI PROCEDURE S Performing Organization Address City/[facility]/ZIP Co de Phone Number [facility] NA * CT HEAD/BRAIN WO CON-Outside CT Neuro (03/01/2024 1:30 PM CDT) Narrative [facility] - 03/01/2024 7:18 PM CDT This order has been created and auto-finalized to support the import of outside images. If available, original interpretation can be found on the Media Tab in Chart Review, in Document Viewer, as an image in QREADS or as an Addendum. If a re-interpretation or overread is required please follow defined workflow.?? Provider Not In System IMG CT PROCEDURES Performing Organization Address City/[facility] Co de Phone Number II NA from Last 3 Months Advance Directives For more information, please contact: [phone] * Full Code (Latest Code Status on File) Date Activated Date Inactivated Comments 03/01/2024 10:25 PM Question Answer Comments Full Code: Discussed * Full Code Date Activated Date Inactivated Comments 10/17/2023 2:30 [...] Answer Comments Full Code: Discussed Care Teams Pasta Maker Relationship Specialty Start Date End Date Elsewhere, Pcp PCP - General Internal Medicine 11/24/23
--- OUTSIDE RECORDS SUMMARY | 2024-03-06 20:31 | XMS_ITS | Clinical Summary ---
Author Organization [employer] [facility] Address [place], [place] [address] Care Team Providers Care Supervisor Uranium Processing Name Role Phone Kush Doran MD Primary Care Provider Viki Abarca MD Unavailable [phone] Allergies Active Allergy Reactions Criticality Noted Date [...] End Date Status calcitrioL (ROCALTROL) 0.25 mcg capsuleIndications:Lauar hair renal hyperparathyroidism (HC) Take three times [...] Cx neg ative. 12/14/2021 Achalasia; discussed at [facility] idisciplinary conference 04/29/21. No further procedural [...] Encounters Date Type Department Care Team Description 03/01/2024 Orders Only [facility] Scanner 1 scan: (1-Ord) [facility] HEAD/BRAIN WO CON, 03/01/2024 03/01/2024 Orders Only [facility] Scanner 1 scan: (1-Ord) [facility], MR ANGIO HEAD WO CON, 03/01/2024 03/01/2024 Orders Only [facility] Scanner 1 scan: (1-Ord) [facility], MR HEAD/BRAIN WO CON, 03/01/2024 03/01/2024 Orders Only [facility] Scanner 1 scan: (1-Ord) [facility], CT HEAD/BRAIN WO CON, 03/01/2024 03/01/2024 Office Visit [facility] [address] [place] [address] Noemi Iverson, Telehealth (Stroke consult, telestroke ) 02/23/2024 Orders Only [facility] Scanner 1 scan: (1-Ord) [place], RT KNEE, 02/23/2024 02/20/2024 Refill [facility] [address] [place] [address] Sebastian Charles MD Refill Request (Pantoprazole) 01/01/2024 8:00 AM CDT Office Visit [facility] [address] [place] [address] Florian Villalobos MD Sleep Follow-up 01/01/2024 Travel from Last 3 Months Immunizations Name [...] 36.7 ??C (98 ??F) 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 Respiratory Rate 14 04/13/2023 4:03 PM CDT [...] Description 04/02/2024 8:30 AM CDT Office Visit [facility] [address] [place] [address] Florian Villalobos MD [address] [place] [address] Health Maintenance Due Date Last Done Comments [...] 12/11/2018, 04/08/2010 Medical Devices Implanted Type Area Gas Station Manager Device Identifier Shelf Expiration Date Model / Serial / Lot Cath Dial Adlt Std Merit Classic Peritoneal Perc Implanted:Qty: 1 on 08/16/2021 by Clayton Diaz MD at [facility] N/A: Abdomen 05/14/2024 [id number] / / Description:CATH DIAL ADLT S TD MERIT CLASSIC PERITONEAL PERC Procedures Procedure Name Priority Date/Time Associated Diagnosis Comments SCAN-MRI INTERPRETATION 03/01/20 12:00 AM CDT SCAN-ANGIOGRAM 03/01/2024 12:00 AM CDT SCAN-MRI INTERPRETATION 03/01/20 12:00 AM CDT SCAN-CT INTERPRETATION 12:00 AM CDT SCAN-MRI INTERPRETATION 02/23/20 12:00 AM CDT from Last 3 Months Results * SCAN-ANGIOGRAM (03/01/2024 12:00 AM CDT) Anatomical Region Laterality Modality Other Scanner OTHER * SCAN-MRI INTERPRETATION (03/01/2024 12:00 AM CDT) Only the most recent of3 resultswithin the time period is included. Anatomical Region Laterality Modality Other Scanner OTHER * SCAN-CT INTERPRETATION (03/01/2024 12:00 AM CDT) Anatomical Region Laterality Modality Other Scanner OTHER from Last 3 Months Advance Directives Documents on File Type Date Recorded Patient State Attorney Expl anation Healthcare Directive 05/16/2018 3:06 PM [employer] DIRECTIVE, [employer], 09/14/2005 * Full Code (Latest [...] Comments Code Status Discussion: Discussed Care Teams Supervisor Uranium Processing Relationship Specialty Start Date End Date Kush Doran MD [address] [place] [address] PCP - General Family Practice 01/31/17 Viki Abarca MD [address] [place] [id number] Gastroenterology 10/13/20
--- OUTSIDE RECORDS SUMMARY | 2024-03-06 20:31 | XMS_ITS | Continuity of Care Document ---
Author Name [facility] Organization [facility] Care Team Providers Care Machine Operator Replanter Name Role Phone [facility] Unavailable Unavailable Problems Combined list of problems from Department of Defense and [facility] Affairs facilities. It does not include entries that were removed or entered in error. Problem Status Onset Date Problem Type Date of Resolution Comments Source Acute GI bleeding Active 05/13/20 22 Condition [facility] Anemia in end stage renal disease Active Condition [facility] Anxiety ([facility] [id number]) Active Condition [facility] Atrial fibrillation Active Condition Nov 07, 2023 Entered By: MACIE ESCAMILLA Comment: Watchman device placed 09/2023 [facility] CITC Primary Care Active Condition Oc t 2021 Entered By: MARILYN ROBINS Comment: Community [facility] Primary: Dr. Mik Doran, [place] [address]. [phone] . [facility] Congestive heart failure Active Condition [facility] Dysphagia Active Condition [facility] Empyema Active Condition [facility] End-stage renal disease Active Condition [facility] Esophageal varices Active Condition [place] [facility] Ex-tobacco user Active [facility] Gout ([facility] [id number]) Active [place] [facility] Hemoptysis Active Condition [facility] Hiatal hernia Active [facility] History of polyp of colon Active Condition [facility] Impaired hearing Active Condition [facility] Leukopenia Active Condition [facility] Long-term current use of anticoagulant Active Condition Jun 10, 2022 Entered By: MARILYN ROBINS Comment: Indication: AF. [facility] Malnutrition [facility] Osteopenia Active Condition Jun 10 Entered By: MARILYN ROBINS Comment: 05.31.2022 DXA. [facility] Stricture of esophagus Active Condition [facility] Thrombocytopenia Active [facility] Diagnosis: ICD-10-CM Z01.00 Encounter for exam of eyes and vision w/o abnormal findings Active Diagnosis [facility] Medications Combined list of outpatient medications [...] ed by: ELENITA ROBINS Document ed at: [facility] ORAL ACTIVE ELENITA ROBINS 2021 [facility] CALCITRIOL 0.25MCG CAP CALCITRI OL 0.25MCG CAP Non-VA TAKE 1 CAPSULE BY MOUTH Jun 10, 2022 Non-VA Document ed by: ELENITA ROBINS Document ed at: [facility] ORAL ACTIVE ELENITA ROBINS 2021 [facility] DIALYVITE TAB DIALYVIT E TAB Non-VA TAKE ONE TABLET BY MOUTH AT BEDTIME Jun 10, 2022 Non-VA Document ed by: ELENITA ROBINS Document ed at: [facility] ORAL ACTIVE ELENITA ROBINS 2021 [facility] DOCUSATE NA 100MG CAP DOCUSATE NA 100MG CAP Non-VA TAKE 1 CAPSULE BY MOUTH PRN Jun 10, 2022 Non-VA Document ed by: ELENITA ROBINS Document ed at: [facility] ORAL ACTIVE ELENITA ROBINS 2021 [facility] METOPROLOL TARTRATE 50MG TAB METOPROL OL TARTRATE 50MG TAB Non-VA TAKE ONE-HALF TABLET BY MOUTH TWICE A DAY Jun 10, 2022 Non-VA Document ed by: ELENITA ROBINS Document ed at: [facility] ORAL ACTIVE ELENITA ROBINS 2021 [facility] ONDANSETRON HCL 4MG TAB ONDANSET TED HCL 4MG TAB Non-VA TAKE ONE TABLET BY MOUTH EVERY 6 HOURS NEEDED Jun 10, 2022 Non-VA Document ed by: ELENITA ROBINS Document ed at: [facility] ORAL ACTIVE ELENITA ROBINS 2021 [facility] PANTOPRAZOL E NA 40MG TAB,EC PANTOPRA ZOLE NA 40MG TAB,EC Non-VA TAKE ONE TABLET BY MOUTH EVERY DAY Jun 10, 2022 Non-VA Document ed by: ELENITA ROBINS Document ed at: [facility] ORAL ACTIVE ELENITA ROBINS 2021 [facility] SUCRALFATE 500MG/5ML SUSP,ORAL SUCRALFA TE 500MG/5M L SUSP,ORA L Non-VA TAKE 2 TEASPOON SFUL BY MOUTH EVERY 6 HOURS Jun 10, 2022 Non-VA Document ed by: ELENITA ROBINS Document ed at: [facility] ORAL ACTIVE ELENITA ROBINS 2021 [facility] TORSEMIDE 20MG TAB TORSEMID E 20MG TAB Non-VA TAKE ONE TABLET BY MOUTH EVERY DAY Jun 10, 2022 Non-VA Document ed by: ELENITA ROBINS Document ed at: [facility] ORAL ACTIVE ELENITA ROBINS 2021 [facility] Allergies, Adverse Reactions, Alerts Combined list of allergies from Department of [facility] and [facility] facilities. It does not include entries that were removed or entered in error. Substance Category Reaction Severity Reaction type Status Date Reported Comments Source CARBAMAZEPINE Propensity to adverse reactions to drug (finding) active 2 [facility] IS [facility] FUROSEMIDE Propensity to adverse reactions to drug (finding) active 2 [facility] PROPAFENONE Propensity to adverse reactions to drug (finding) active 2 [facility] SUCRALFATE Propensity to adverse reactions to drug (finding) active 2 [facility] Immunizations Combined list of available immunizations from the Department of [facility] and [facility] facilities. Immunization Series Date Given Administered By Site Reaction Lot Number CVX Code Drug Supervisor [employer] Status Comments Source COVID-19 ([email or web address]), MRNA, LNP-S, PF, 30 MCG/0.3 ML DOSE 2 2020 208 complet ed PFR; [id number]; 1 [facility] COVID-19 (PFIZER), MRNA, LNP-S, PF, 30 MCG/0.3 ML DOSE 1 2020 208 complet ed PFR; [id number]; 1 [facility] Encounters Combined list of: 1) Encounters from [facility] facilities going back up to thelast 18 months. 2) Encounters from the Department of Defense facilities going back up to 280 months. Location Location Details Encounter Type Encounter Number Reason For Visit Attending Provider ADM Date DC Date Status Disposition Source [facility] IMG RTA DETCJ/MNTR DS STAFF [id number] Diagnos is: ICD-10- CM Z01.00 Encount er for exam of eyes and vision w/o abnorma l finding s
Cinthya HENDERSON E 04/12 [facility] [place] [facility] Outpatient Encounter [id number] Diagnos is: ICD-10- CM Z01.00 Encount er for exam of eyes and vision w/o abnorma l finding s
ALEX LUCERO 04/13 [facility] [place] [facility] Outpatient Encounter [id number] 04/13 [facility] [place] [facility] Outpatient Encounter [id number] Eulogio BRYAN 05/02 [facility] [place] [facility] Outpatient Encounter [id number] 05/03 [facility] [place] [facility] Outpatient Encounter [id number] Lyric SIMS E 05/03 [facility] [place] [facility] Outpatient Encounter [id number] [facility] [place] [facility] Outpatient Encounter [id number] 11/06 [facility] Plan of Care List of future care activities from [facility] facilities. Additional future care activities may be listed in the Assessment and Plan section. Date/Time Care Activity Care Activity Detail Facili ty 04/11/2024 AMBULATORY - REHAB MEDICINE AMBULATORY - REHAB MEDICINE [facility]
--- OUTSIDE RECORDS SUMMARY | 2024-03-06 20:31 | XMS_ITS ---
Author Name Gwendolyn, Clinic Address [address] [place] [address] Phone [phone] Organization [facility] e, NA DOCUMENT DISCLAIMER Multiple document versions may exist, please be sure you review the latest version. The information in the [facility] Kidney [facility] Continuity of Care Document represents a summary [...] Instructions Dosage Route Start Date End Date [facility] allopurinol 100 mg Take by mouth [...] mg Take by mouth twice a day 1/2 ORAL May 11, 2022 Active pantoprazole 40 mg Take by mouth twice a day 1 tablet ORAL December 21, 2022 Active torsemide 20 mg Take by mouth once a day 1 tablet ORAL December 22, 2021 Active VITAL SIGNS Post-Treatment Vital Signs Vital Sign Value Date / Time Blood Pressure-sitting 105/64 mmHg March 06, 2024 12:00 AM Heart Rate 71 beats per minute March 06 12:00 AM Temperature 97.5 deg. F March 06, 2024 12 :00 AM Weight Vital Sign Value Date / Time Estimated Dry Weight 77 kg January 29 11:59 PM Post-Dialysis 79.59 kg March 06, 2024 12 :00 AM Other Other Value [...] - 10.80 1000/mcL - November 03, 2023 WBC (No Diff) 4.85 1000/mcL 4.80 - 10.80 1000/mcL - December 04, 2023 Neutrophils 81.0 % 40.0 - 75.0 % High December 04, 2023 Platelets 127 1000/mcL 130 - 400 1000/mcL Low Apri l 2023 UIBC (Calc) 261 mcg/dL 155 - 355 mcg/dL - November 192023 Transferrin Sat. (Calc) 16 % 20 - [...] 33.7 pg 27.0 - 31.0 pg High May 06, 20 24 Hemoglobin x 3 36.6 % 42.0 - 54.0 % Low December 25, 2023 RDW 13.7 % 11.5 - 14.5 % - December 24 4 Neutrophils 76.5 % 40.0 - 75.0 % [...] % 42.0 - 54.0 % Low January Platelets 189 1000/mcL 130 - 400 1000/mcL - January 31, 2024 UIBC (Calc) 298 mcg/dL 155 - 355 mcg/dL - January Iron 33 mcg/dL 45 - 160 mcg/dL Low January 31, 2024 TIBC 331 mcg/dL 185 - 515 mcg/dL - January 31, 2024 Monocytes 9.6 % 3.0 - 10.0 % - January 30 4 Lymphocytes 8.3 % 19.0 - 48.0 % [...] 27.0 - 31.0 pg High January 30 Transferrin Sat. (Calc) 10 % 20 - 55 % Low January 31, 2024 Metabolic/Renal Result Type Result Value Relevant Referen ce Range Interpretation Date Vitamin B12 600 pg/mL 211 - 911 pg/mL - June 23, 2023 BUN/Creat Ratio 11.2 10.0 - 20.0 - [...] - 80 pg/mL High Feb ruary 2023 Ca x P Product 34 0 - 54 - December 24 24 Corrected Ca x P Product 36 0 - 54 - December 25, 2023 Alkaline Phosphatase 287 U/L 40 - 129 U/L High Ma 2023 Magnesium 1.9 mg/dL 1.6 - 2.6 mg/dL - December 24 PTH-Intact, Plasma 268 pg/mL 16 - 80 [...] Product 33 0 - 54 - January 30 Corrected Ca x P Product 34 0 [...] 30, 2024 Frequency 6X Week [facility] Dialysis Machine [place] Estimated Dry Weight 77 kg Calcium Content [...] Exchange Solution Dialysis Access Meds-entered by patient March 06, 2024 1 of 1 - Dextrose 2.5% Peritoneal Dialysis-PD Catheter-Double Cuff Coiled, Right Upper Quadrant of Abdomen Access Placed on August 16, 2021 - Vitals Time Weight BP Heart Rate Temperature Blood Sugar March 06, 2024 (AM) 79.59 kg 105/64 mmHg 71 beats per minute 97.5 deg. F - [facility] Date Exchanges Fill Volume Exchange Solution Dialysis Access Meds-entered by patient March 05, 2024 - - - Peritoneal Dialysis-PD Catheter-Double Cuff Coiled, Right Upper Quadrant of Abdomen Access Placed on August 16, 2021 - Vitals Time Weight BP Heart Rate Temperature Blood Sugar March 05, 2024 (AM) 37.6 kg 109/69 mmHg 74 beats per minute 97.8 deg. F - [facility] Date Exchanges Fill Volume Exchange Solution Dialysis Access Meds-entered by patient March 04, 2024 1 of 1 - Dextrose 2.5% Peritoneal Dialysis-PD Catheter-Double Cuff Coiled, Right Upper Quadrant of Abdomen Access Placed on August 16, 2021 - Vitals Time Weight BP Heart Rate Temperature Blood Sugar March 04, 2024 (AM) 81.5 kg 109/69 mmHg 74 beats per minute 97.8 deg. F -
--- OUTSIDE RECORDS SUMMARY | 2024-03-06 20:32 | XMS_ITS ---
Author Organization [facility] Address [address] [place] [address] Care Team Providers Care Poke In Name Role Phone Unavailable Unavailable Unavailable Surgery Details Not on file Complications Check Surgery Details section. Procedure Estimated Blood Loss Check Surgery Details section. Procedure Findings Check Surgery Details section. Procedure Specimens Taken Check Surgery Details section.
--- OUTSIDE RECORDS SUMMARY | 2024-03-06 20:32 | XMS_ITS ---
Author Organization [facility] Address [address] [place] [address] Care Team Providers Care Automobile Sales Representative Name Role Phone Elsewhere, Pcp Primary Care Provider Unavailabl e Dialysis Plan of Treatment Dialysis Prescription As-Of Date Prescribed Dry Weight Primary Se tting 03/06/2024 Acute Dialysis S CA Instructions Modality Start Time Dwell Time (hours) Dextrose Strength Continuous Cycling Peritonea l Dialysis Dialysis Access Type Location from Last 30 Days Procedures The patient is currently admitted. The [...] 1:30 PM CDT from Last 3 Months Allergies Active Allergy [...] times a day. 60 tablet 5 10/17/2023 Discontinued(S top Taking at Discharge) clopidogreL (PLAVIX) [...] Aortic Valve Acquired 05/18/2023 Hemorrhage Gastrointestinal 06/05/2022 Care Home (Current) Anticoagulant Treatment 11/20 Hypertensive Chronic Kidney [...] drink = 0.6 oz pur e alcohol) [facility] Utilities Answer Date Recorded In the past 12 months has [facility] [employer], gas, oil, or water [employer] threatened to shut off services in your [...] often do you attend chur ch or anglican services? More than 4 times per year [...] and heating? Not hard at all 05/13/2023 [facility] - Occupational Stress Questionnaire Answer Date [...] [facility] to live 03/01/2024 Education Answer Date [...] Mass Index 27.12 03/02/2024 4:12 PM CDT Results * (ABNORMAL) CBC without Differential (03/06/2024 [...] 10:40 AM CDT 03/06/2024 11:24 AM CDT Abimael Giles LAB BLOO D ADD-ON [facility] [address] [place] [address], [facility] [address] [place] [address] * (ABNORMAL) Basic Metabolic Panel (03/06/2024 10:40 [...] CDT Abimael [place] [address], [facility] [place] [address] * (JASON) 2D WITH COLOR AND DOPPLER [...] and the findings as documented in the hanging flags decorator and also performed a pertinent examination including [...] performed at the request of the primary computing services director. Adult probe inserted without difficulty. 3D imaging [...] Sedation Narrator or other pertinent record in [facility] for additional procedure and sedation information. Physician [...] septum without shunt by color Doppler. (No [id number] shunt with agitated saline on most recent [...] septum without shunt by color Doppler. (No [id number] with agitated saline on most recent JASON [...] and the findings as documented in the hanging flags decorator and alsoperformed a pertinent examination including a heart, airway and lungassessment. Mallampati Assessment: Class II. Sedation plan:Transesophageal echo - moderate sedation. ASA physical status score: ClassIII. The patient's identity and all needed equipment were confirmed and afinal confirmatory pause was performed by the team immediately prior tostart. PROCEDURAL ECHO FINDINGS: Transesophageal echocardiogram performedat the request of the primary computing services director. Adult probe insertedwithout difficulty. 3D imaging was [...] See SedationNarrator or other pertinent record in [facility] for additional procedure andsedation information. Physician signature [...] CDT Abimael Giles LAB BLOO D ADD-ON [facility] [address] [place] [address], [place] [facility] [address] [place] [address] * DX Elbow Right 3+ Views (03/02/2024 [...] CDT Renae Manzanares M.D. LAB BLOOD ADD-ON [facility] [address] [place] [address], [facility] [address] [place] [address] [facility] [address] [place] [address] * HBs Antibody, Serum (03/02/2024 5:34 AM CDT) HBs Antibody, S Positive 1:44 PM CDT [facility] Comment: Patient is considered to have been exposed to HBV or immune from HBV vaccination. ----REFERENCE VALUE---- Unvaccinated: Negative Vaccinated: Positive HBs Antibody, Quantitative, S 621 mIU/mL 03/02/2024 1:44 PM CDT [facility] Comment: ----REFERENCE VALUE---- Unvaccinated: <8.5 mIU/mL Vaccinated: >=11.5 mIU/mL Blood 03/02/2024 5:34 AM CDT 03/02/2024 12:50 PM CDT Anika Lara APRN, C.N.P., M.S.N. LAB MICROBIOLOGY - BLOOD ORDERABLES Performing Organization Address City/[facility]/ZIP Co de Phone Number [facility] [address] [address] [place] [address] [place] [address] * Hepatitis B Surface Antigen (03/02/2024 5:34 AM CDT) Pathologist [facility] HBs Antigen, S Negative Negative 03/02/2024 1:44 PM CDT [facility] Blood (Blood, Venous) 03/02/2024 5:34 AM CDT 03/02/2024 12:50 PM CDT Anika Lara APRN, C.N.P., M.S.N. LAB MICROBIOLOGY - BLOOD ORDERABLES [facility] [address] [place] [address] [facility] [address] [place] [address] * ECG 12 Lead (03/02/2024 1:48 AM CDT) Ventricular Rate ECG/Min 62 BPM MUSE QRSD Interval 124 ms MUSE QT Interval 432 ms MUSE QTC Interval 438 ms MUSE R [place] 19 degrees MUSE T Wave [place] 72 degrees MUSE 03/02/2024 1:48 AM CDT [...] replaced Sinus rhythm Reviewed by NICHOL Laura Renae Manzanares M.D. ECG ORDERABLES MUSE [...] in the upper abdomen. Renae Manzanares M.D. [facility] CT PROCEDURES * Lipid Panel (03/01/2024 10:11 PM CDT) Pathologist [facility] Triglycerides 82 mg/dL 03/01/2024 11:04 PM CDT [...] Mohan M.D. LAB BLOOD ADD-ON [facility] [address] [place] [address], [facility] [address] [place] [address] * S-TSH (Thyroid-Stimulating Hormone - Sensitive) (03/01/2024 10:11 PM CDT) TSH, Sensitive 2.2 0.3 - 4.2 mIU/L 03/01/2024 11:04 PM CDT [facility] Blood (Blood, Venous) 03/01/2024 10:11 PM CDT 03/01/2024 10:41 PM CDT Stuart Mohan M.D. LAB BLOOD ADD-ON Performing Organization Address City/[facility]/ZIP Co de Phone Number [facility] [address] [place] [address], [place] [address] * Hemoglobin A1c (03/01/2024 10:11 PM CDT) Hemoglobin A1c, B 5.5 4.0 - 5.6 % 03/01/2024 10:49 PM CDT [facility] Blood (Blood, Venous) 03/01/2024 10:11 PM CDT 03/01/2024 10:26 PM CDT Stuart Mohan M.D. LAB BLOOD ADD-ON Performing Organization Address [facility] Co de Phone Number [facility] [address] [place] [address], [place] [address] * (ABNORMAL) Comprehensive Metabolic Panel (03/01/2024 10:11 PM CDT) Potassium, S 4.1 3.6 - 5.2 mmol/L [...] 2020 CKD_EPI creatinine equation. Calcium, Total, S 8.5(L) [...] CDT Stuart Mohan M.D. LAB BLOOD ADD-ON [facility] [address] [place] [address], [facility] DTL [facility] [address] [place] [address] * MR Angio Neck wo Con-Outside MR [...] IMG MRI PROCEDURE S Performing Organization Address [facility] Co de Phone Number [facility] NA * CT HEAD/BRAIN WO CON-Outside CT Neuro (03/01/2024 1:30 PM CDT) Narrative [facility] - 03/01/2024 7:18 PM CDT This order [...] System IMG CT PROCEDURES Performing Organization Address [facility] Co de Phone Number [facility] NA from Last 3 Months
--- OUTSIDE RECORDS SUMMARY | 2024-03-06 20:32 | XMS_ITS | Encounter Summary ---
Author Organization [facility] Address [address] [place] [address] Care Team Providers Care Pupil Personnel Services Director Name Role Phone Elsewhere, Pcp Primary Care Provider Unavailabl e Reason for Visit * Auth/Cert (Routine) Specialty Diagnoses / Procedures Referred By Contac t Referred To Contact Diagnoses Stroke (HCC) Stroke Procedures DIR Referral ID Status Reason Start Date Expiration Date Visits Re quested Visits Authorized [id number] 1 1 Encounter Details Date Type Department Care Team (Latest Contact Info) Description 03/02/2024 1:30 PM CDT - 03/02/2024 11:59 PM CDT Hospital Encounter Department of Radiology, [facility] [place], [place] [address] [place] [address] Pham Rome M.D. [address] [place] [address] Discharge Disposition: Home or Self Care Social History Tobacco Use Types Packs/Day Years Used Date Smoking Tobacco: Never Smokeless Tobacco: Never Alcohol Use Standard Drinks/Week Comments Never 0 (1 standard drink = 0.6 oz pur e alcohol) [facility] Utilities Answer Date Recorded In the past 12 months has e electric, gas, oil, or water company threatened to shut off services in your [...] How often do you attend chur or voodoo services? More than 4 times per year [...] living situation today? I have a [facility] place to live 03/01/2024 Education Answer [...] Sig Dispensed Refills Start Date End Date atorvastatin (Lipitor) 40 mg tablet Take 1 tablet (40 mg total) by mouth at bedtime. 30 tablet 03/04/2024 04/03/2024 allopurinol (ZYLOPRIM) 100 mg tablet Take 100 mg by mouth every morning. 11/09/2018 calcitRIOL (ROCALTROL) 0.25 mcg capsule Take 1 capsule by mouth 3 (three) times a week. Monday, Monday, Monday12/27/2018 cholecalciferol (VITAMIN D3) 50 mcg (2,000 Unit) tablet Take 1 tablet by mouth daily. 08/29/2022 clopidogreL (PLAVIX) 75 mg tablet Take 1 tablet (75 mg total) by mouth daily. Start after Eliquis therapy completed and continue lifelong as tolerated. 90 tablet 3 04/17/2024 docusate sodium (COLACE) 100 mg capsule Take 100 mg by mouth daily. famotidine (PEPCID) 20 mg tablet TAKE 1 TABLET BY MOUTH AT BEDTIME 100 tablet 2 07/25/2023 metoprolol tartrate (LOPRESSOR) 25 mg tablet Take 12.5 mg by mouth 2 (two) times a day. pantoprazole (PROTONIX) 40 mg EC tablet Take 40 mg by mouth 2 (two) times a day before breakfast and dinner. 06/04/2022 [facility] 1-60-300 mg-mg-mcg tablet Take 1 tablet by mouth daily. 02/15/2024 torsemide (DEMADEX) 20 mg tablet Take 1 tablet (20 mg total) by mouth daily. 12/12/2021 apixaban (ELIQUIS) 2.5 mg tablet Take 1 tablet (2.5 mg total) by mouth 2 (two) times a day. 60 tablet 5 10/17/2023 03/04/2024 amoxicillin (AMOXIL) 500 mg capsule Take 4 capsules by mouth once as needed (Dental procedures). 05/30/2022 gentamicin (GARAMYCIN) 0.1 % cream Apply 1 Application topically as needed. 06/01/2022 multivitamin renal failure (DIALYVITE) 100-1 mg tablet Take 1 tablet by mouth daily with dinner. 30 tablet 12/08/2021 sucralfate (CARAFATE) 100 mg/mL suspension Take 10 mL (1 g total) by mouth every 6 (six) hours as needed (If esophageal bleeding.). 420 mL 1 08/07/2023 triamcinolone (KENALOG) 0.1 % cream Apply 1 Application topically as needed for irritation. 09/20/2022 documented as of this encounter Plan of Treatment Not on file documented as of this encounter Procedures Procedure Name Priority Date/Time Associated Diagnosis Comments DX ELBOW RIGHT 3+ VIEWS RAD - Routine (most inpatients and all outpatients) 03/02/2024 2:51 PM CDT documented in this encounter Results * DX Elbow Right 3+ Views (03/02/2024 [...] IV in theantecubital fossa. Pham Rome M.D. [facility] DIAGNOSTIC IMAGI NG PROCEDURES documented in this encounter Visit Diagnoses Not on filedocumented in this encounter Care Teams Pupil Personnel Services Director Relationship Specialty Start Date End Date Elsewhere, Pcp PCP - General Internal Medicine 11/24/23 documented as of this encounter
--- OUTSIDE RECORDS SUMMARY | 2024-03-06 20:32 | XMS_ITS | Encounter Summary ---
Author Organization [facility] Address [address] [place] [address] Care Team Providers Care Business Office Director Name Role Phone Elsewhere, Pcp Primary Care Provider Unavailabl e Reason for Referral * Occupational Therapy (Routine) - Authorized Specialty Diagnoses / Procedures Referred By Contac t Referred To Contact Diagnoses Stroke (HCC) Procedures OT Evaluate and treat Abimael Mathias M.B.B.S. Formerly [facility] [place] [phone] [facility] Region Referral ID Status Reason Start Date Expiration Date V isits Requested Visits Authorized [id number] Authorized 03/06/2024 03/06/2025 1 1 * Physical Therapy (Routine) - Authorized Specialty Diagnoses / Procedures Referred By Albino t Referred To Contact Diagnoses Stroke (HCC) Procedures PT Evaluate and treat Abimael Mathias M.B.B.S. [address] [place] [phone] [facility] Region Referral ID Status Reason Start Date Expiration Date V isits Requested Visits Authorized [id number] Authorized 03/06/2024 03/06/2025 1 1 Reason for Visit * Auth/Cert (Routine) Specialty Diagnoses / Procedures Referred By Albino t Referred To Contact Diagnoses Stroke (HCC) Stroke Procedures DIR Referral ID Status Reason Start Date Expiration Date Visits Re quested Visits Authorized [id number] 1 1 Encounter Details Date Type Department Care Team (Latest Contact Info) Description 03/01/2024 9:51 PM CDT - Present Hospital Encounter [facility], [facility], Second floor [address] [place] [phone] Stuart Mohan M.D. [address] [place] [address] Stroke (HCC) [I63.9] (Primary Dx); Stroke (HCC); Lack Of Coordination [R27.9]; Deficit Cognitive Communication [R41.841]; Decline Functional Status [R53.81] Social History Tobacco Use Types Packs/Day Years Used Date Smoking Tobacco: Never Smokeless Tobacco: Never Alcohol Use Standard Drinks/Week Comments Never 0 (1 standard drink = 0.6 oz pur e alcohol) [facility] Utilities Answer Date Recorded In the past 12 months has e electric, gas, oil, or water [employer] threatened to shut off services in your [...] often do you attend chur ch or pentecostal services? More than 4 times per year 04/11/2022 Do you belong to any clubs o r organizations such as yazidism groups, unions, fraternal or [...] and heating? Not hard at all 05/13/2023 [facility] [...] your living situation today? I have a [facility] place to live 03/01/2024 Education Answer Date [...] Mass Index 27.12 03/02/2024 4:12 PM CDT documented in this encounter Progress Notes * Jacob Rey P.T., D.P.T. - 03/06/2024 4:06 PM CDT Physical Therapy Acute Hospital Inpatient Treatment SUBJECTIVE Patient's Name: David Castro Reason for Referral: PT eval and treat- brain consult Medical Diagnosis: 1. Stroke (HCC) [I63.9] 2. Stroke (HCC) 3. Lack Of Coordination [R27.9] 4. Deficit Cognitive Communication [R41.841] 5. Decline Functional Status [R53.81] History of Present Illness: Mr. Castro is an 83 yo R handed gentleman with PMH notable for pAF s/pWatchman 09/2023 subsequently on apixaban, ESRD on PD, hx of bleeding esophageal ulcers, HTN, ELENI. Pt admitted for workup of L thalamic infarct. Onset Date: 03/01/24 Patient/Caregiver Goals: Go home, improve vision Patient Comments: Patient agreeable to therapy. Precautions Other Precautions: fall risk, left-side weakness, peritoneal dialysis catheter, right knee pain related to mensiscus injury, visuoperceptual deficits (hx of vertical diplopia, left eye blurriness, right eye ptosis - resolving) Fall Risk (65 and older) Fall in the last 12 months: No Are you fearful of falling?: No OBJECTIVE Pain: None. Vitals: Not indicated at this time Sit to Stand Transfers # of Assistants: 1 Transfer Surface: Bed Transfer Equipment: Gait belt Level of Assistance: Supervision/set-up Comments: Stand by Assist for stability Stand to Sit Transfers # of Assistants: 1 Transfer Surface: Bed Transfer Equipment: Gait belt Level of Assistance: Supervision/set-up Comments: Stand by Assist for stability Gait Assessment/Training Distance (m): 100 m Surface: Even, Smooth/hard Device: Gait belt, No device # of Assistants: 1 Level of Assistance: Contact guard assistance Stability: Fair Assessment of Gait: Patient ambulates with mild instability requiring contact guard/min A without an assistive device. Left sided lean without assistive device and poor management of walker with device. Training/Intervention: Ambulation with and without assistive device with cues for environmental awareness and facilitation for stability. Used as warmup for therapy and motor priming for neuroplasticity. Response: No adverse effects. PT Neuromuscular Re-education Neuromuscular Re-education 1: Work on standing balance with patient in modified tandem stance progressing to head turns in horizontal, vertical directions as well as eyes closed. Neuromuscular Re-education 2: Dynamic balance unsupported with variable gait patterns including slow march, side stepping, and backwards stepping. Neuromuscular Re-education 3: Practice stair training without handrail to challenge dynamic balanceduring functional activity. Cues to pause at each step to address patient's impulsiveness and add balance challenge to activity. Patient/Family Training: Patient's caregiver given education on patient's current deficits and current level of assistance needed for safe mobility. Caregiver verbalizes understanding and all questions were answered to their satisfaction. At the end of today's therapy session patient was left seated in bedside chair with an appropriate call light within reach. Patient's needs and questions addressed during today's session. Assessment Patient demonstrates improvement with mobility and is able to recognize deficit of leaning towards the left causing occasional loss of balance. Remains impulsive though does respond well to cuing. Educated caregiver on patient's current deficits and assistance that he will need for a discharge home. Barriers to a safe discharge home: Barriers to Discharge Home: Current functional status, Fall risk Comorbid Conditions: Cardiopulmonary disease, Renal disease, Other (Comment) (achalasia) Skilled therapy can include physical therapy provided by home health, outpatient clinic, or a post-acute facility. The location of these services is determined by the patient's care team in partnership with patient/family. Equipment Recommended - PT: Other (Comment) (To be determined) Functional Goals and Timeframes: PT Goal #1: Patient will transfer with least restrictive assistive device with supervision to promote a safe dc home. PT Goal #1 Date: 03/08/24 PT Goal #2: Patient will ambulate with least restrictive assistive device with supervision to promote a safe dc home. PT Goal #2 Date: 03/08/24 PT Goal #3: Patient will negotiate a flight of stairs with railing with close stand by assistance to promote a safe dc home. Plan Patient agrees with the plan of care and goals. Treatment Plan: PT Frequency: 6 times per week PT Amount: 1 visit per day PT Inpatient Duration : Until goals are met or hospital discharge Plan: Plan of care initiated PT Plan Comments: progressive therapeutic functional mobility training, balance/gait training, stair training, neuromuscular re-education, patient and family education Treatment interventions may include: Treatment/Interventions: Therapeutic exercise, Therapeutic functional activity, Neuromuscular re-education, Gait training Time Spent with Patient Therapeutic Interventions Neuromuscular Re-Education (min): 30 min Therapeutic Activity (min): 14 min Time Tracking Total Timed Units (min): 44 min Total Treatment Time (min): 44 min Jacob Rey P.T., D.P.T. * Deidra Mcneill OJazmín, MOT - 03/06/2024 3:36 PM CDT Occupational Therapy Acute Hospital Inpatient Progress Note SUBJECTIVE Patient's Name: David Castro Reason for Referral: OT eval and treat- brain consult Medical Diagnosis: 1. Stroke (HCC) [I63.9] 2. Stroke (HCC) 3. Lack Of Coordination [R27.9] 4. Deficit Cognitive Communication [R41.841] 5. Decline Functional Status [R53.81] History of Present Illness: Mr. Castro is an 83 yo R handed gentleman with PMH notable for pAF s/pWatchman 09/2023 subsequently on apixaban, ESRD on PD, hx of bleeding esophageal ulcers, HTN, ELENI. Pt admitted for workup of right medial thalamic infarct. Patient has left hemiparesis, right eye ptosis and vertical diplopia. Onset Date: 03/01/24 Patient/Caregiver Goals: Maximize indepenedence, return home. Patient Comments: Patient motivated for therapy Precautions Other Precautions: fall risk, left-side weakness, peritoneal dialysis catheter, right knee pain related to mensiscus injury, visuoperceptual deficits (hx of vertical diplopia, left eye blurriness, right eye ptosis - resolving) Fall Risk (65 and older) Fall in the last 12 months: Yes Did you have an injury with the fall?: No Are you fearful of falling?: Yes OBJECTIVE ADL Comments ADL Comments: Mr Castro ambulates through his room and hallway with contact guard assistance and front wheeled walker, he benefits from verbal cues to keep front wheeled walker at appropriate position and cues for upright head to view his environment to minimize fall risk. Bed, Chair, Wheelchair Transfers # of Assistants: 1 Transfer Surface: Bed Transfer Approach: To and from, Ambulating Transfer Equipment: Front wheeled walker Level of Assistance: Contact guard assistance Assessment/Delivery: Assessed, Instructed, Therapist assisted, Facilitated Comments: Mobility through his room and muniz with front wheeled walker including turning right and left with contact guard assistance for safety, no loss of balance, but frequent cues for safe walkerposition and looking upright/posture for safety. Current Vision Comments: Patient presents and reports fluctuating visuoperceptual skills, acuity, and double vision. Patient's vision appears to be dependent on body positioning, glasses positioning,and fatigue. Therapist observed oculomotor fatigue with abduction and weak convergence. Vision Exercises: Completed with patient for eye stretches and visual tracking in an x and + pattern monocular and binocular. Therapist encouraging patient to direct exercises which he is able to do with encouragement and minimal verbal cues. present and observing, will benefit from review, repetition of education. Note oculomotor fatigue with exercises. Patient/Family Education: - Role of OT, stroke recovery, plan of care , patient currently waiting for insurance authorizationfor inpatient rehabilitation facility. - Vision home exercise program (2x/daily) - Eye stretches, monocular, in 'x' and '+' pattern - Visual tracking, monocular, in 'x' and '+' pattern Education Provided to: reviewed with patient and Learner's Response: Requires continued education At the end of today's therapy session patient was left seated edge of bed with an appropriate call light within reach. Patient's needs and questions addressed during today's session. Assessment Mr Castro is highly motivated for therapy. He participates in oculomotor exercises with education to direct exercises and complete with assist of another under his direction. He requires encouragement and minimal verbal cues to direct eye home exercise program, he will benefit from repetition of education and increased involvement of his . Note occulomotor fatigue at completion of home exercise program. Mr Castro ambulates through his room and hallway with contact guard assistance and front wheeled walker, he benefits from verbal cues to keep front wheeled walker at the appropriate position and cues for upright head to view his environment to minimize fall risk. Mr Castro is hoping for admission to inpatient rehabilitation facility, if this is not approved hewill benefit from outpatient therapy to address deficits in left side weakness, visuoperceptive skills, unsteady gait to minimize fall risk. 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 The location of these services is determined by the patient's care team in partnership with patient/family. Recommended Adaptive Equipment - OT: (ongoing assessment) Functional Goals and Timeframes: OT Goal #1: By goal review date, patient and will return-demonstrate and verbalize understanding of vision home exercise program for improved visual coordination and reduced diplopia 2/2 R CN III palsy. OT Goal #1 Status: Slowly progressing OT Goal #2: By goal review date, patient will demonstrate total-body dressing with modified independence. (Lula'd eye glasses taping goal. Patient reports that he does not like taping and prefers eye patch or no intervention when doing activity.) OT Goal #2 Status: Progressing OT Goal #3: By goal review date, patient will demonstrate toileting, including transfer, with modified independence. OT Goal #3 Status: Progressing OT Goal #4: By discharge, patient and/or family will verbalize plan to implement recommended levelsof assist and/or equipment for safe performance of daily tasks. OT Goal #4 Status: Progressing Progress: Progressing toward goals Plan Patient agrees with the plan of care and goals. Treatment Plan: OT Frequency: 5 times per week OT Amount: 1 visit per day OT Inpatient Duration : Until goals are met or hospital discharge Plan: Continue with current plan Treatment interventions may include: Treatment Interventions: Therapeutic exercise, Therapeutic functional activity, Neuromuscular re-education, Self-care/home management Time Spent with Patient Therapeutic Interventions Home Management Training (min): 10 min Therapeutic Exercise (min): 20 min Time Tracking Total Timed Units (min): 30 min Total Treatment Time (min): 30 min Deidra Mcneill O.T., MOT * Francisca Rizvi M.A., [facility]-SECTION REPAIRER - 03/06/2024 3:35 PM CDT Speech Language Pathology Communication/Cognitive Treatment- Acute Care Session Type: Treatment Length of session: 22 minutes SUBJECTIVE Patient seen for speech therapy session in his private room. He is seated upright at the edge of bed and willing to participate. General Family/Caregiver Present: No Arousal/Alertness: Appropriate responses to stimuli Behavior: Alert, Cooperative, Pleasant mood Pain Pain Assessment Pain Assessment: 0-10 Numeric Pain Intensity Scale Pain Score: 0 - No pain OBJECTIVE Objective Session Data Cognition Overall Cognitive Status: Impaired Attention: Within Normal Limits (WNL) Memory: Impaired Working Memory: Mild Orientation: Oriented X4 Numeric Reasoning: Within Normal Limits (WNL) Cognition Comments: SLUMS Assessment Mr. Castro participates in a skilled speech therapy session targeting cognitive-communication goals on this date. He demonstrates significant improvements in attention, verbal fluency, and recall since initial assessment. He scores 27/30 points on the [facility] Mental Status Examination, missing points for delayed recall (4/5) and digit span reversal (0/2). He expresses some frustration with his difficulty with digit span reversal, commenting that he should have been more successfulwith this. Overall, Mr. Castro denies any changes in cognitive-communication functioning, and he has made good progress since initial evaluation. No further inpatient SECTION REPAIRER services indicated; should he have anydifficulty resuming desired activities upon discharge, outpatient evaluation could be considered. Goals: Cognition Short Term Goal 1 Cognition Short Term Goal 1: Patient will participate in formal cognitive- communication assessment. 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 CYP 2C19 pending 2. HTN/HLD: continues home Metoprolol tartrate 12.5 mg bid New Atorvastatin 40 mg qhs 3. GI bleed/GERD: continues home pantoprazole 40 mg bid and famotidine 10 mg qhs 4. ESRD: on PD Continue home torsemide 20 mg daily, Dialyvite and calcitriol 0.25 mcg on MWF F/u BMP tomorrow RPh added on Phos and Mg with 03/07 labs Changes to medications anticipated at discharge:TBD Renae Schmitz, Pharm.D., R.Ph., BCPP * Stuart Mohan M.D. - 03/06/2024 3:11 PM CDT SUBJECTIVE No acute overnight events. 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 DAPT x 90 days as FREDDIE shows aortic arch atheroma. [id number] pending. Insurance denial for inpatient rehab despite our best attempts including peer to peer with the insurance company. Working with brain rehab team on a safe home discharge plan. His functional status is improving. Stuart Mohan MD Division of Cerebrovascular Diseases and Stroke Department of Neurology Pager # [phone] * Claudine Moreira APRN, C.N.P., M.S.N. - 03/06/2024 2:30 PM CDT NEPHROLOGY CONSULT SERVICE - PROGRESS NOTE Hospital Day 5 SUBJECTIVE Mr. Castro was seen and examined in his hospital room today the presence of his . Patient states that PD went well last night. He was happy that we were able to UF 562 mL. Denies chest pain, nausea, dizziness, and dyspnea. Denies constipation, last bowel movement yesterday. With patient and state that he will be going to [facility] for inpatient rehab and they just waiting for insurance approval. Mr. Castro was informed that we will continue providing his PD needs while he is going through rehabilitation at [facility]. Patient agreeable for another PD session tonight with a 2.5% glucose. All questions and concerns addressed. I have reviewed: current medication list, vital signs, intake/output, and recent diagnostic testing. OBJECTIVE Admission weight: 79.6 kg Weights for the past 120 hrs (Last 3 readings): Weight 03/06/24 0620 80.9 kg 03/05/24 1029 81.7 kg 03/04/24 0555 81.6 kg I/O 03/05 0000 03/05 2359 03/06 0000 03/06 2359 Other 0 Total Intake(mL/kg) 0 (0) Urine (mL/kg/hr) 0 (0) 0 (0) Dialysis 326 545 Total Output 326 545 Net -326 -545 Unmeasured Urine Occurrence 5 x 2 x VITAL SIGNS Temperature: [36.4 ??C-36.6 ??C] 36.4 ??C Resp Rate: [18] 18 Blood Pressure: (105-113)/(64-67) 105/64 FiO2 (%): [21 %] 21 % SpO2: [98 %] 98 % Pulse Rate: [71-77] 71 PHYSICAL EXAM General: Alert, oriented, and answering assessment questions appropriately. Sitting at the edge of bed. In no acute distress. Cardiovascular: irregular rate and rhythm. Respiratory: Clear to auscultation bilateral. Respirations are regular. Breathing on room air. Extremities: Trace edema present in bilateral lower extremities. Abdomen: Bowel sounds on all 4 quadrants. Non-tender to palpation. Non- distended. 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, maintained on peritoneal dialysis since August 2021 # Admitted 03/01/2024 with left-sided weakness, MRI showed right medial thalamic infarct # 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 # Chronic anemia related to ESKD # History of hypertension # Atrial fibrillation, s/p watchman device # Hypokalemia- improved underwent peritoneal dialysis last night and had a total ultrafiltration of 562 mL will continue with peritoneal dialysis tonight with the following prescription: CCPD; 6 hours; 3 exchanges; 1.5 L fill volume; 2.5% glucose; no day dwell (Per usual outpatient routine) New Recommendations: -- CCPD tonight, as above -- Please re-consult nephrology once patient discharge to [facility] so we can continue providing PD -- Ensure 1.5 L/day oral fluid restriction -- Please measure urine output Continued Recommendations: -- Document strict intake and output -- Adult regular diet with 1.5 L fluid restriction -- Renally dose-adjust all medications for ESKD and PD dependence -- Cholecalciferol 25 mcg orally daily -- Calcitriol 0.25 mcg PO 3x weekly -- Dialyvite 1 tablet orally daily -- Gentamicin 0.1% cream daily to catheter exit site following site care with soap and water -- Torsemide 20 mg orally daily -- Continue PRN bowel medications for constipation, as this can negatively impact the function of the PD catheter -- Daily weights -- Standard recommendations: Daily weights Strict intake and output Avoid hypotension, maintain MAP > 65 mmHg Avoid all nephrotoxins if possible (contrast dye, unnecessary antibiotics, NSAIDs) Renally dose all medications for ESKD and peritoneal dialysis dependence Disposition Planning: -- Please keep Nephrology informed regarding dismissal plans as they become known so we can ensure all outpatient dialysis needs have been accommodated prior to dismissal Mr. Castro's case has been staffed with Dr. Rivera, Nephrology chain sales consultant. For questions or concerns, please contact Nephrology B CONVERTER SUPERVISOR/PA pager ([phone]). Associated attestation - Peng Rivera M.D. - 03/06/2024 4:32 PM CDT I met with CONVERTER SUPERVISOR Claudine Finney and discussed and reviewed the patient's status. He has end-stage kidney disease from nephrosclerosis. He does home peritoneal dialysis. He was recently admitted for a stroke, which has improved. He continues with the peritoneal dialysis. The dialysis has been going well. Ultrafiltration last night and improved. * Niesha Lin, JANY, LD - 03/06/2024 2:02 PM CDT Nutrition Care Plan Follow Up Clinical Nutrition continues to follow patient for oral intake encouragement ASSESSMENT Completed visit or chart review today without direct contact with the patient due to busy with nursing x 2. Current Nutrition (since admission): Patient unable to provide updated nutrition status for RDN today due to busy with meds and other cares. No meals being documented in the past three days in EMR. Currently awaiting insurance approval for [facility] 4 rehab, hopefully transfer soon. Appears to be ordering three meals daily from the hospital. Eating meats, fruits, vegetables. No dietary restrictions at this time, on a regular diet. Weight continues to be stable with ongoing peritoneal dialysis, today at 80.9 kg, admit weight of 79.6 kg. Last BM on 03/04. Nutrition will continue to follow while in hospital. No % meals documented in the past 72 hours Swallow function: Regular since admission Skin integrity: Wound 03/01/24 Elbow Posterior;Right (Active) Date First Assessed/Time First Assessed: 03/01/24 8776 Present on Original Admission: Yes Primary Wound Type: (c) Location: Elbow Wound Location Orientation: Posterior;Right Scheduled Meds:allopurinoL, 100 mg, oral, QAM aspirin, 81 mg, oral, Daily atorvastatin, 40 mg, oral, Q24H calcitRIOL, 0.25 mcg, oral, Once per day on Monday calcitRIOL, 0.25 mcg, oral, Once cholecalciferol, 25 mcg, oral, Daily clopidogreL, 75 mg, oral, Daily famotidine, 10 mg, oral, Daily at bedtime gentamicin, 1 Application, topical, Daily heparin (porcine), 5,000 Units, subcutaneous, Q8H ISAIAH metoprolol tartrate, 12.5 mg, oral, BID multivitamin-dialysis, 1 tablet, oral, Daily with evening meal pantoprazole, 40 mg, oral, BID before morning and evening meals polyethylene glycol, 17 g, oral, Daily sennosides-docusate sodium, 2 tablet, oral, Daily Or sennosides-docusate sodium, 2 tablet, gastric tube, Daily torsemide, 20 mg, oral, Daily Pertinent Labs: Last 3 results Lab Units 03/06/24 1040 03/05/24 0555 03/04/24 0548 SODIUM mmol/L 139 140 140 POTASSIUM mmol/L 3.7 3.5* 3.6 CHLORIDE mmol/L 102 102 102 BUN mg/dL 48* 44* 42* CREATININE mg/dL 4.50* 4.27* 4.60* CALCIUM mg/dL 8.4* 8.5* 8.3* Current nutrition orders: Current Diet Adult Diet Regular starting at 03/04 1135 GI Function: Last BM Date: 03/04/24, [place] Stool Chart: Type 5: Soft blobs with clear-cut edges, Weight since admission: Height: 172.7 cm Admission Weight: 79.6 kg (03/01/2024) Current Weight: 80.9 kg Beatrice Body Weight (Calculated) : 68.4 kg BMI (Calculated): 27.1 kg/m?? Weight change since admission: 1.3 kg Net IO Since Admission: -1,114 mL [03/06/24 1402] Estimated Needs: Total Calorie Needs: 9439-1804 calories/day Method to Estimate Energy Needs: kcal/kg (22-25 kcal/kg) Weight Used for Equation Calculations: 79.6 kg Total Protein Needs: 80 - 96 grams/day Method to Estimate Protein Needs (g/kg): 1 - 1.2 gm/kg Weight Used to Calculate Protein Needs (Kg): 79.6 kg Nutrition Diagnosis: Other (comment) related to PD as evidenced by dietitian follow Nutrition Diagnosis Reassessment: Ongoing PLAN Nutrition Intervention: Provide education to increase nutrition knowledge, Provide counseling strategies to apply nutrition knowledge Nutrition parameter to monitor: Meals/Supplement Intake, Fluid Balance, Ascites/Edema, Weight Status, Comparative Standards, Pertinent Labs ASPEN Criteria Malnutrition Status: Malnutrition criteria not met Recommendations: No changes at this time; continue current nutrition orders Continue Dialyvite Multivitamin Encourage good PO intake of meals, document % of meals consumed Continue daily weights for dialysis Clinical Nutrition will continue to follow. For questions about patient's nutritional care please contact pager [phone] on weekdays 07:30-16:00 or [phone] on weekends/holidays ([facility]). * Edison Vazquez M.D. - 03/06/2024 12:45 PM CDT SUBJECTIVE Mr. Castro has remained medically and neurologically stable; no new issues. 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 I reviewed with the acute rehab local coordinator; unfortunately, insurance approval for [facility]4has not come through so will hope for tomorrow. I met with the patient and his spouse and reviewed that we have not gotten insurance approval for [facility] but are hoping for tomorrow. Later-I did a peer to peer review with the physician at his insurance company. Unfortunately, they have denied approval of acute rehab suggesting that he did not need the 3 hours of therapy. * Buster Workman R.N. - 03/06/2024 11:00 AM CDT Patient discussed at Stroke multidisciplinary rounds. Patient is currently being followed by the following members of the Care Management team: Case Management Plan for the day: PT, OT, SECTION REPAIRER, PMR MD, Monitor labs, Nephrology following, and Nutrition following Plan for stay: Stroke work up Discharge barriers: Prior authorization for insurance pending Recommended discharge disposition: IRF As discussed, multidisciplinary team members have had ongoing care and discharge discussions with the Patient and Family. Multidisciplinary team indicated Patient and Family may benefit from the following discharge services: Skilled therapies (PT and/or OT and/or SECTION REPAIRER). * Abimael Mathias M.B.B.S. - 03/06/2024 7:56 AM CDT Images from the original note were not included. NEUROLOGY STROKE SERVICE PROGRESS NOTE SUBJECTIVE Continues to endorse diplopia. We have continued to reiterate that we expect this will recover overtime as he has had rapid interval improvement in his initial Campa syndrome CN 3 palsy. Overview: IPR candidate; awaiting prior auth Aoric atheroma -> 90d DAPT then clopi monotherapy starting tomorrow Vitals within normal range Peritoneal dialysis managed by neph Labs today pending I have reviewed the current medication list. DAPT starting 03/05, atorvastatin 40, metoprolol and torsemide OBJECTIVE Temperature: [36.2 ??C-36.6 ??C] 36.4 ??C Resp Rate: [18-20] 18 Blood Pressure: (105-117)/(60-75) 105/64 FiO2 (%): [21 %] 21 % SpO2: [98 %-100 %] 98 % Pulse Rate: [71-77] 71 Physical Exam: Constitutional: well-developed, well-nourished, resting comfortably in bed Lungs: Breathing comfortably on room air. Soft bibasilar fine crackles. No wheeze Cardiac: regular rate and rhythm Abdomen: Soft, non-tender, non-distended. Skin: No rash on exposed skin. Neurologic: Mental status: Alert and oriented to time, place and person Speech: Clear. Language: No evidence of aphasia. (Naming, reading, repetition and comprehension areintact.) Cranial nerves: PERRL 2 mm, subtle right eye ptosis (significantly improved) but complete extraocular eye movements, visual ramirez intact to confrontation, left lip droop at rest, facial movements full and symmetric, sensation intact to light touch and pinprick in the V1-V3 distributions, hearing intact to voice, tongue protrudes in midline, there is equal elevation of the soft palate, shoulder shrug is appropriate in strength. Motor: Very subtle satelliting around LUE. Bilateral upper and lower extremity strength evaluated including: (R, L) deltoids (0,0), biceps (0,0), triceps (0,- 0.5), wrist extension (0,0), finger extension (0,0), interossei (0,0), iliopsoas (0,0), knee flexion (0,0), knee extension (0,0), ankle dorsiflexion (0,0), toe extension (0,0). Tone is normal in bilateral upper and lower extremities. Sensory: Sensation is intact to vibration, proprioception, pinprick of distal extremities bilaterally. Reflexes: biceps (0,0), triceps (0,0), brachioradialis (0,0), patellar (0,1) and Achilles (0,0). Plantar flexor responses are flexor-flexor. Coordination: Finger to nose and heel to chambers are normal bilaterally. Gait: Appropriate width, normal arm swing, and speed. Narrow stance. Normal step size. Normal toe, heel and tandem walking. Turns without shuffling. NIH Stroke Scale 1A. LOC: 0=alert; keenly responsive 1B. Questions: 0=answers both questions correctly 1C. Commands: 0=Performs both tasks correctly 2. Best Gaze: 0=normal 3. Visual: 0=No visual loss 4. Facial Palsy: 0=Normal symmetric movement 5A. Left Arm Motor: 0=No drift, limb holds 90 (or 45) degrees for full 10 seconds 5B. Right Arm Motor: 0=No drift, limb holds 90 (or 45) degrees for full 10 seconds 6A. Left Leg Motor: 0=No drift, leg holds 30 degrees for full 5 seconds 6B. Right Leg Motor: 0=No drift, leg holds 30 degrees for full 5 seconds 7. Limb Ataxia: 0=Absent 8. Sensory: 1=Mild to moderate sensory loss; patient feels pinprick is less sharp or is dull on theaffected side; there is a loss of superficial pain with pinprick but patient is aware He is being touched 9. Best Language:0=No aphasia, normal 10. Dysarthria: 0=Normal 11. Extinction: 0=No abnormality TOTAL SCORE: 1 Diagnostics: I have reviewed the diagnostics from admission. Outside MRI H 03/01 Right medial thalamic infarct . Bilateral leukoaraiosis suggestive of small- vessel disease. CT Chest without IV Contrast Result Date: 03/02/2024 Impression: 1. Unable to evaluate for proximal embolic source in the absence of intravenous contrast. 2. New likely infectious/inflammatory groundglass opacities in the right lung. 3. New small left pleural effusion. 4. New indeterminate right middle lobe nodule measuring 3 mm. Recommend follow-up.5. Small volume ascites in the upper abdomen. ASSESSMENT / PLAN Mr. David Castro is a 83 y.o. 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 The patient is presenting with a right medial thalamic infarct that correlates to his mild left sided symptoms which have already shown interval improvement. 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 While the right CN 3 nucleus does not show diffusion restriction it lies immediately caudally to the infarct it was likely involved either by direct ischemia or secondary edema/mass effect. The etiology of the stroke is either small-vessel disease or atheroembolic. A cardioembolic source and Watchman complication was ruled out on FREDDIE 03/05. 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 Another potential etiology could be small vessel disease particularly given extensive leukoaraiosis bilaterally. Given the complex ulcerated aortic arch atheroma we discontinued apixaban and started DAPT for 90 days witha plan to then transition to clopidogrel monotherapy long-term. [id number] pending. We have started atorvastatin 40 mg aiming for long-term LDL under 55-70; his blood pressure is within goal. He is now medically fit for discharge; he is an inpatient rehab candidate; we are awaiting prior authorizationfor inpatient rehab admission. Regarding his peritoneal dialysis, nephrology was contacted overnight and given stability of his electrolytes, can defer his normal session of dialysis until the morning. 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 # Paroxysmal atrial fibrillation s/p watchman 10/17/23 # Hypertension # Moderate to severe aortic stenosis # ELENI on CPAP # Esophageal ulcers with GI bleed # Prior right frontal craniotomy 09/22 brain abscess (2001) Workup: Neuroimaging: CTH/MRI/MRA notable for right medial temporal infarct, no LVO noted Stroke labs: LDL 83, TSH 2.2, HbA1c 5.5 FREDDIE: Complex, 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 Management Blood Pressure: Permit hypertension up to 220/110 for first 24 hours with PRN hydralazine 50 mg q6hr oral ordered Antihypertensives: resume home torsemide, metoprolol tartrate at 6.25 mg BID Antithrombotics: DAPT for 90d given complex aortic atheroma then clopidogrel monotherapy Statin: atorvastatin 40 mg daily BG Goal: 140-180 Brain Rehab Team consulted, appreciate recs SECTION REPAIRER consulted for dysarthria, appreciate recs WS consulted for assistance with d/c planning, appreciate recs Neuro Checks per Unit protocol => stat noncontrast head CT for change in exam Cardiac monitoring not ordered given known history of atrial fibrillation Monitor vitals per unit routine protocol Chronic # ESRD on peritoneal dialysis 6 days a week # 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 # Prior complicated parapneumonic effusion in November 2021 Pulmonary curbside: Given stability of loculated right pleural effusion, this is not need follow up. Would recommend 1 year follow up for 3 mm pulmonary nodule. Otherwise for pulmonary fibrotic changes can consider outpatient CT chest follow up by PCP. We will reinitiate home torsemide and monitor for signs of pneumonia. # Esophageal ulcers with GI bleed # Achalasia # GERD Continue home famotidine and pantoprazole Monitor hemoglobin daily Diet: Diet Tubes/lines: PIV VTE prophylaxis: enoxaparin Code status: Full Code Surrogate Decision Maker: Spouse, Cynthia Disposition: Uncertain Plan discussed with [facility] Neurology Stroke and Cerebrovascular Disease Product Distribution Specialist, Dr. Mohan. Please page the [facility] Neurology Stroke and Cerebrovascular Disease service pager at [phone] with any questions. Brandee LugoB.B.S. * Zuri Novak R.R.T., L.R.T. - 03/05/2024 10:15 PM CDT 03/05/24 2211 BPAP/CPAP Therapy BPAP/CPAP Interface Full face mask BPAP/CPAP Interface Size Medium Skin barrier Self-adherent foam dressing $BPAP/CPAP Yes Ventilator Parameters Ventilator Parameters (Select Groups) BPAP/CPAP Rows BPAP/CPAP Mode CPAP FiO2 (%) 21 % NPPV EPAP (CPAP) Setting 14 cm H2O Humidification Heated humidifier Heater Temperature 2 ??C Patient placed on CPAP for the night. Electronically signed by: Zuri Novak R.R.T., L.RBaileyTBailey 03/05/24 11:13 PM CDT * Buster Workman R.N. - 03/05/2024 1:52 PM CDT Patient discussed at Stroke multidisciplinary rounds. Patient is currently being followed by the following members of the Care Management team: Case Management Plan for the day: PT, OT, SECTION REPAIRER, PMR MD, Monitor labs, Nephrology following, and Nutrition following Plan for stay: Stroke work up Discharge barriers: Prior authorization for insurance pending Recommended discharge disposition: IRF As discussed, multidisciplinary team members have had ongoing care and discharge discussions with the Patient and Family. Multidisciplinary team indicated Patient and Family may benefit from the following discharge services: Skilled therapies (PT and/or OT and/or SECTION REPAIRER). * Jacob Rey P.T., Samia.P.T. - 03/05/2024 12:55 PM CDT Physical Therapy Acute Hospital Inpatient Treatment SUBJECTIVE Patient's Name: David Castro Reason for Referral: PT eval and treat- brain consult Medical Diagnosis: 1. Stroke (HCC) [I63.9] 2. Stroke (HCC) 3. Lack Of Coordination [R27.9] 4. Deficit Cognitive Communication [R41.841] History of Present Illness: Mr. Castro is an 83 yo R handed gentleman with PMH notable for pAF s/pWatchman 09/2023 subsequently on apixaban, ESRD on PD, hx of bleeding esophageal ulcers, HTN, ELENI. Pt admitted for workup of L thalamic infarct. Onset Date: 03/01/24 Patient/Caregiver Goals: Go home, improve vision Patient Comments: Patient agreeable to therapy. Precautions Other Precautions: fall risk, left-side weakness, peritoneal dialysis catheter, right knee pain related to mensiscus injury, visuoperceptual deficits (hx of vertical diplopia, left eye blurriness, right eye ptosis - resolving) Fall Risk (65 and older) Fall in the last 12 months: No Are you fearful of falling?: No OBJECTIVE Pain: None. Vitals: Not indicated at this time Sit to Stand Transfers # of Assistants: 1 Transfer Surface: Bed Transfer Equipment: Gait belt Level of Assistance: Contact guard assistance Stand to Sit Transfers # of Assistants: 1 Transfer Surface: Bed Transfer Equipment: Gait belt Level of Assistance: Contact guard assistance Gait Assessment/Training Distance (m): 100 m Surface: Even, Smooth/hard Device: Gait belt, No device, Front-wheeled walker # of Assistants: 1 Level of Assistance: Minimal assistance Stability: Fair Assessment of Gait: Patient ambulates with mild instability requiring contact guard/min A without an assistive device. Left sided lean without assistive device and poor management of walker with device. Training/Intervention: Ambulation with and without assistive device with cues for environmental awareness and facilitation for stability. Dual tasking holding cup in left hand with cues to avoid spilling. Response: No adverse effects. PT Neuromuscular Re-education Neuromuscular Re-education 1: Patient performs anterior step-ups on 6 step to improve single limb stability and higher level strengthening activity. Switch legs and repeat multiple sets. Neuromuscular Re-education 2: Standing balance with patient in staggered stance and right lower extremity placed on step with left lower extremity on ground. Cues to hold position and avoid loss of balance toward left side. Patient/Family Training: Patient educated on benefits of physical activity on neurologic recovery, functional mobility and quality of life. At the end of today's therapy session patient was left seated in bedside chair with an appropriate call light within reach. Patient's needs and questions addressed during today's session. Assessment Patient with limitations in left-sided spatial awareness, left-sided trunk lean, to balance impairments during gait. Patient would continue to benefit from skilled therapy to address neuromuscular impairments and facilitate maximal independence with functional mobility while minimizing caregiver burden. From the Physical Therapist's perspective, the patient is an inpatient rehabilitation candidate dueto requiring ongoing physical assistance with skilled need for activities of daily living and/or cognition. Will formally discuss at next PMR team rounds and communicate with primary service according ly. Barriers to a safe discharge home: Barriers to Discharge Home: Current functional status, Fall risk Comorbid Conditions: Cardiopulmonary disease, Renal disease, Other (Comment) (achalasia) Skilled therapy can include physical therapy provided by home health, outpatient clinic, or a post-acute facility. The location of these services is determined by the patient's care team in partnership with patient/family. Equipment Recommended - PT: Other (Comment) (To be determined) Functional Goals and Timeframes: PT Goal #1: Patient will transfer with least restrictive assistive device with supervision to promote a safe dc home. PT Goal #1 Date: 03/08/24 PT Goal #2: Patient will ambulate with least restrictive assistive device with supervision to promote a safe dc home. PT Goal #2 Date: 03/08/24 PT Goal #3: Patient will negotiate a flight of stairs with railing with close stand by assistance to promote a safe dc home. Plan Patient agrees with the plan of care and goals. Treatment Plan: PT Frequency: 6 times per week PT Amount: 1 visit per day PT Inpatient Duration : Until goals are met or hospital discharge Plan: Plan of care initiated PT Plan Comments: progressive therapeutic functional mobility training, balance/gait training, stair training, neuromuscular re-education, patient and family education Treatment interventions may include: Treatment/Interventions: Therapeutic exercise, Therapeutic functional activity, Neuromuscular re-education, Gait training Time Spent with Patient Therapeutic Interventions Gait Training (min): 13 min Neuromuscular Re-Education (min): 20 min Time Tracking Total Timed Units (min): 33 min Total Treatment Time (min): 33 min Jacob Rey P.T., D.P.T. * Murtaza Carlson R.N., CRRN - 03/05/2024 12:29 PM CDT Following with the PM&R Brain Consult Service. Reviewed the notes and discussed with the rehab team. The rehab team is recommending ongoing inpatient rehabilitation and Mr. Castro is a [facility]. Spoke with Mr. Castro and his spouse to explain the rehab unit routines and requirements. Reviewed insurance coverage for inpatient rehab. They would like to pursue inpatient rehab on [facility] 4. Tentatively planning for transfer to [place] [id number] today pending insurance approval. Willnotify the primary service with any updates on his insurance status. * Francisca Rizvi M.A., CCC-SECTION REPAIRER - 03/05/2024 11:30 AM CDT 03/05/24 1130 Reason Therapy Missed Reason Therapy Missed Receiving other care (Attempted to see patient for speech therapy session, however, he was working with PT. Unable to return later today, we will follow-up tomorrow.) * Stuart Mohan M.D. - 03/05/2024 11:15 AM CDT SUBJECTIVE No acute overnight events. 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 DAPT x 90 days as FREDDIE shows aortic arch atheroma. [id number] pending. Pending insurance clearance for placement. Stuart Mohan MD Division of Cerebrovascular Diseases and Stroke Department of Neurology Pager # [phone] * Charity Becerra, DWIGHT, C.N.P., D.N.P. - 03/05/2024 10:40 AM CDT NEPHROLOGY CONSULT SERVICE - PROGRESS NOTE Hospital Day 4 SUBJECTIVE I saw Mr. Castro in his hospital room today. His is present at his bedside. He reports feeling well and notes that PD went well overnight without difficulties. Denies chest pain, nausea, dizziness, and dyspnea. Denies constipation, last bowel movement 03/03. Weight has been up trending a bit and he has slight lower extremity edema, though notes he has been eating better while in the hospital. He tells me he will be going over to [facility] for inpatient rehab, and I reviewed that nephrology team will continue to follow for his PD needs while there. I encouraged him to increase his potassium-rich foods in his diet today due to mild hypokalemia. All questions and concerns addressed. I have reviewed: current medication list, vital signs, intake/output, and recent diagnostic testing. OBJECTIVE Admission weight: 79.6 kg Weights for the past 120 hrs (Last 3 readings): Weight 03/05/24 1029 81.7 kg 03/04/24 0555 81.6 kg 03/03/24 0516 81.1 kg I/O 03/03 0000 03/03 2359 03/04 0000 03/04 2359 03/05 0000 03/05 2359 P.O. Other 0 Total Intake(mL/kg) 0 (0) Urine (mL/kg/hr) 0 (0) 0 (0) 0 (0) Stool 0 0 Dialysis 252 307 309 Total Output 252 307 309 Net -252 -307 -309 Unmeasured Urine Occurrence 5 x 7 x 2 x Unmeasured Stool Occurrence 2 x 1 x VITAL SIGNS Temperature: [36.2 ??C-36.6 ??C] 36.6 ??C Heart Rate: [70-79] 71 Resp Rate: [14-20] 20 Blood Pressure: (109-137)/(54-85) 111/75 SpO2: [96 %-100 %] 96 % Pulse Rate: [70-79] 74 PHYSICAL EXAM General: Alert, oriented, and answering assessment questions appropriately. Sitting at the edge of the bed. In no acute distress. Cardiovascular: Regular rate and rhythm. Respiratory: Clear bilaterally in upper lobes of posterior lung ramirez, mildly diminished bilaterallower lobes. Respirations regular and unlabored. Breathing on room air. Extremities: Trace pitting edema present in bilateral lower extremities. Abdomen: Bowel sounds active x4 quadrants. Non-tender to palpation. Non- distended. 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 Weight this morning stable at 81.7 kg (81.6 kg yesterday). I understand he is being prepared to transfer over to [facility] for inpatient rehab. While there, nephrology will continue to follow for his peritoneal dialysis needs. will continue with peritoneal dialysis tonight with the following prescription: CCPD; 6 hours; 3 exchanges; 1.5 L fill volume; 2.5% glucose dianeal; no day dwell [per usual outpatient routine]. New Recommendations: -- CCPD tonight, as above -- Mr. Castro has been encouraged to increase his consumption of potassium-rich foods today d/t mild hypokalemia -- Once he has transferred over to [facility], please place Nephrology non-ICU consult so we can continue to follow for PD needs -- Ensure 1.5 L/day oral fluid restriction -- Please measure urine output Continued Recommendations: -- Document strict intake and output -- Adult regular diet -- Renally dose-adjust all medications for ESKD and PD dependence -- Cholecalciferol 25 mcg orally daily -- Calcitriol 0.25 mcg PO 3x weekly -- Dialyvite 1 tablet orally daily -- Gentamicin 0.1% cream daily to catheter exit site following site care with soap and water -- Torsemide 20 mg orally daily -- Continue PRN bowel medications for constipation, as this can negatively impact the function of the PD catheter -- Daily weights Dismissal Planning: -- Please keep nephrology informed of dismissal plans to ensure outpatient peritoneal dialysis is arranged appropriately prior to hospital dismissal. Mr. Castro's case has been staffed with Dr. Rivera, Nephrology chain sales consultant. For questions or concerns, please contact Nephrology B CONVERTER SUPERVISOR/PA pager ([phone]). Associated attestation - Peng Rivera M.D. - 03/05/2024 11:32 AM CDT I met with CONVERTER SUPERVISOR Charity Becerra and discussed and reviewed the patient's status. He has end-stage kidney disease from nephrosclerosis. He does home peritoneal dialysis. He was recently admitted for a stroke, which has improved. He continues with the peritoneal dialysis. The dialysis has been going well. * Edison Vazquez M.D. - 03/05/2024 10:19 AM CDT SUBJECTIVE I met with the patient and his , Cynthia; he has remained neurologically and medically stable overnight. 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 I reviewed the patient with the acute rehab local coordinator; have submitted for insurance approval. If insurance approval is obtained today before to 2 pm, will admit to [facility]; otherwise will need to wait for approval. I met with the patient and and again reviewed the protocol of acute rehab. * Abimael Mathias M.B.B.S. - 03/05/2024 7:13 AM CDT Images from the original note were not included. NEUROLOGY STROKE SERVICE PROGRESS NOTE SUBJECTIVE Feels well. Continues to be bothered by diplopia which this morning he tells me is only with glasses. It was improved by taking off his glasses. Did not have diplopia at rest nor on end gaze with glasses off. Requested his evening medications be administered before 5:00 p.m. due to severe reflux if administered later prior to bedtime. 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 DAPT starting 03/05, atorvastatin 40, metoprolol and torsemide OBJECTIVE Temperature: [36.2 ??C-36.6 ??C] 36.6 ??C Heart Rate: [69-83] 71 Resp Rate: [12-32] 20 Blood Pressure: (100-137)/(54-85) 109/69 SpO2: [96 %-100 %] 96 % Flow Rate (L/min): [2 L/min] 2 L/min Pulse Rate: [68-80] 79 Physical Exam: Constitutional: well-developed, well-nourished, resting comfortably in bed Lungs: Breathing comfortably on room air. Soft bibasilar fine crackles. No wheeze Cardiac: regular rate and rhythm Abdomen: Soft, non-tender, non-distended. Skin: No rash on exposed skin. Neurologic: Mental status: Alert and oriented to time, place and person Speech: Clear. Language: No evidence of aphasia. (Naming, reading, repetition and comprehension areintact.) Cranial nerves: PERRL 2 mm, subtle right eye ptosis (significantly improved) but complete extraocular eye movements, visual ramirez intact to confrontation, left lip droop at rest, facial movements full and symmetric, sensation intact to light touch and pinprick in the V1-V3 distributions, hearing intact to voice, tongue protrudes in midline, there is equal elevation of the soft palate, shoulder shrug is appropriate in strength. Motor: Very subtle satelliting around LUE. Bilateral upper and lower extremity strength evaluated including: (R, L) deltoids (0,0), biceps (0,0), triceps (0,- 0.5), wrist extension (0,0), finger extension (0,0), interossei (0,0), iliopsoas (0,0), knee flexion (0,0), knee extension (0,0), ankle dorsiflexion (0,0), toe extension (0,0). Tone is normal in bilateral upper and lower extremities. Sensory: Sensation is intact to vibration, proprioception, pinprick of distal extremities bilaterally. Reflexes: biceps (0,0), triceps (0,0), brachioradialis (0,0), patellar (0,1) and Achilles (0,0). Plantar flexor responses are flexor-flexor. Coordination: Finger to nose and heel to chambers are normal bilaterally. Gait: Appropriate width, normal arm swing, and speed. Narrow stance. Normal step size. Normal toe, heel and tandem walking. Turns without shuffling. NIH Stroke Scale 1A. LOC: 0=alert; keenly responsive 1B. Questions: 0=answers both questions correctly 1C. Commands: 0=Performs both tasks correctly 2. Best Gaze: 0=normal 3. Visual: 0=No visual loss 4. Facial Palsy: 0=Normal symmetric movement 5A. Left Arm Motor: 0=No drift, limb holds 90 (or 45) degrees for full 10 seconds 5B. Right Arm Motor: 0=No drift, limb holds 90 (or 45) degrees for full 10 seconds 6A. Left Leg Motor: 0=No drift, leg holds 30 degrees for full 5 seconds 6B. Right Leg Motor: 0=No drift, leg holds 30 degrees for full 5 seconds 7. Limb Ataxia: 0=Absent 8. Sensory: 1=Mild to moderate sensory loss; patient feels pinprick is less sharp or is dull on theaffected side; there is a loss of superficial pain with pinprick but patient is aware He is being touched 9. Best Language:0=No aphasia, normal 10. Dysarthria: 0=Normal 11. Extinction: 0=No abnormality TOTAL SCORE: 1 Diagnostics: I have reviewed the diagnostics from admission. Outside MRI H 03/01 Right medial thalamic infarct . Bilateral leukoaraiosis suggestive of small- vessel disease. CT Chest without IV Contrast Result Date: 03/02/2024 Impression: 1. Unable to evaluate for proximal embolic source in the absence of intravenous contrast. 2. New likely infectious/inflammatory groundglass opacities in the right lung. 3. New small left pleural effusion. 4. New indeterminate right middle lobe nodule measuring 3 mm. Recommend follow-up.5. Small volume ascites in the upper abdomen. ASSESSMENT / PLAN Mr. David Castro is a 83 y.o. 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 The patient is presenting with a right medial thalamic infarct that correlates to his mild left sided symptoms which have already shown interval improvement. 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 While the right CN 3 nucleus does not show diffusion restriction it lies immediately caudally to the infarct it was likely involved either by direct ischemia or secondary edema/mass effect. The etiology of the stroke is either small-vessel disease or cardioembolic source given recent Watchman insertion in 09/2023 and possible thrombus or leak. Reassuringly, no thrombus or leak was identified on FREDDIE in November. Per chart review, the plan was to remain on Eliquis for 6 months post Watchmanif there are no bleeding concerns. Freddie was pursued 03/05 in reassuringly did not demonstrate any complications from the Watchman including leak. 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 Another potential etiology could be small vessel disease particularly given extensive leukoaraiosis bilaterally; this will be a diagnosis of exclusion in this case. Given the complex ulcerated aortic arch atheroma we will treat with DAPT for 90 days then transition to clopidogrel monotherapy as previously planned. We have started atorvastatin 40 mg aiming for long-term LDL under 55-70; his blood pressure is within goal. He is now medically fit for discharge; he is an inpatient rehab candidate so we will await input from our PM&R colleagues. Regarding his peritoneal dialysis, nephrology was contacted overnight and given stability of his electrolytes, can defer his normal session of dialysis until the morning. 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 # Paroxysmal atrial fibrillation s/p watchman 10/17/23 on apixaban # Hypertension # Moderate to severe aortic stenosis # ELENI on CPAP # Esophageal ulcers with GI bleed # Prior right frontal craniotomy 09/22 brain abscess (2001) Workup: Neuroimaging: CTH/MRI/MRA notable for right medial temporal infarct, no LVO noted Baseline ECG pending Stroke labs: LDL 83, TSH 2.2, HbA1c 5.5 FREDDIE ideally Sunday 03/04, NPO Monday midnight Management Blood Pressure: Permit hypertension up to 220/110 for first 24 hours with PRN hydralazine 50 mg q6hr oral ordered Antihypertensives: resume home torsemide, metoprolol tartrate at 6.25 mg BID Antithrombotics: DAPT for 90d given complex aortic atheroma then clopidogrel monotherapy Statin: atorvastatin 40 mg daily BG Goal: 140-180 Brain Rehab Team consulted, appreciate recs SECTION REPAIRER consulted for dysarthria, appreciate recs WS consulted for assistance with d/c planning, appreciate recs Neuro Checks per Unit protocol => stat noncontrast head CT for change in exam Cardiac monitoring not ordered given known history of atrial fibrillation Monitor vitals per unit routine protocol Chronic # ESRD on peritoneal dialysis 6 days a week # 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 # Prior complicated parapneumonic effusion in November 2021 Pulmonary curbside: Given stability of loculated right pleural effusion, this is not need follow up. Would recommend 1 year follow up for 3 mm pulmonary nodule. Otherwise for pulmonary fibrotic changes can consider outpatient CT chest follow up by PCP. We will reinitiate home torsemide and monitor for signs of pneumonia. # Esophageal ulcers with GI bleed # Achalasia # GERD Continue home famotidine and pantoprazole Monitor hemoglobin daily Diet: Diet Tubes/lines: PIV VTE prophylaxis: enoxaparin Code status: Full Code Surrogate Decision Maker: Spouse, Cynthia Disposition: Uncertain Plan discussed with [facility] Neurology Stroke and Cerebrovascular Disease Product Distribution Specialist, Dr. Mohan. Please page the [facility] Neurology Stroke and Cerebrovascular Disease service pager at [phone] with any questions. Nicole Lugo.B.S. * María Denton CPT([facility]) - 03/04/2024 10:15 PM CDT [id number]/04/[id number] BPAP/CPAP Therapy BPAP/CPAP Interface Full face mask BPAP/CPAP Interface Size Medium $BPAP/CPAP (yes) Ventilator Parameters Ventilator Parameters (Select Groups) BPAP/CPAP Rows BPAP/CPAP Mode CPAP NPPV EPAP (CPAP) Setting 14 cm H2O Humidification Heated humidifier Patient was placed on PAP for the night. RT will continue to monitor as needed. Electronically signed by: María Denton CPT([facility]) 03/04/24 10:15 PM CDT Under the direction of Zuri Novak SOUVENIR ASSEMBLER * Jacob Rey P.T., D.P.T. - 03/04/2024 3:15 PM CDT Physical Therapy Acute Hospital Inpatient Treatment SUBJECTIVE Patient's Name: David Castro Reason for Referral: PT eval and treat- brain consult Medical Diagnosis: 1. Stroke (HCC) [I63.9] 2. Stroke (HCC) 3. Lack Of Coordination [R27.9] History of Present Illness: Mr. Castro is an 83 yo R handed gentleman with PMH notable for pAF s/pWatchman 09/2023 subsequently on apixaban, ESRD on PD, hx of bleeding esophageal ulcers, HTN, ELENI. Pt admitted for workup of L thalamic infarct. Onset Date: 03/01/24 Patient/Caregiver Goals: Go home, improve vision Patient Comments: Patient agreeable to therapy. Precautions Other Precautions: fall risk, left-side weakness, peritoneal dialysis catheter, right knee pain related to mensiscus injury, visuoperceptual deficits (hx of vertical diplopia, left eye blurriness, right eye ptosis - resolving) Fall Risk (65 and older) Fall in the last 12 months: No Are you fearful of falling?: No OBJECTIVE Pain: None. Vitals: Not indicated at this time Sit to Stand Transfers # of Assistants: 1 Transfer Surface: Bed Transfer Equipment: Gait belt, Front wheeled walker Level of Assistance: Minimal assistance, Contact guard assistance Stand to Sit Transfers # of Assistants: 1 Transfer Surface: Bed Transfer Equipment: Gait belt, Front wheeled walker Level of Assistance: Contact guard assistance Gait Assessment/Training Distance (m): 100 m Surface: Even, Smooth/hard Device: Gait belt, No device, Front-wheeled walker # of Assistants: 1 Level of Assistance: Contact guard assistance, Minimal assistance Stability: Fair Assessment of Gait: Patient ambulates with mild instability requiring contact guard/min A without an assistive device. Left sided lean without assistive device and poor management of walker with device. Training/Intervention: Ambulation with and without assistive device with cues for environmental awareness and facilitation for stability. Progress with backwards and side stepping to further challenge stability. Response: No adverse effects. Patient/Family Training: Patient educated on benefits of physical activity on neurologic recovery. At the end of today's therapy session patient was left seated in bedside chair with an appropriate call light within reach. Patient's needs and questions addressed during today's session. Assessment Patient with limitations in spatial awareness limiting his ability to manage walker properly, ambulate without assistive device, coordinate his foot placement on stairs. In addition, he has mild lefttrunk lean contributing to veering left down hallway. All of these factors make him a high fall risk at this time. Educated with family that as of now he requires physical assistance wherever he walks. Does demonstrate potential for improvement with therapy to decrease risk of fall and future injury for patient. From the Physical Therapist's perspective, the patient is an inpatient rehabilitation candidate dueto requiring ongoing physical assistance with skilled need for activities of daily living and/or cognition. Will formally discuss at next PMR team rounds and communicate with primary service according ly. Barriers to a safe discharge home: Barriers to Discharge Home: Current functional status, Fall risk Comorbid Conditions: Cardiopulmonary disease, Renal disease, Other (Comment) (achalasia) Skilled therapy can include physical therapy provided by home health, outpatient clinic, or a post-acute facility. The location of these services is determined by the patient's care team in partnership with patient/family. Equipment Recommended - PT: Other (Comment) (To be determined) Functional Goals and Timeframes: PT Goal #1: Patient will transfer with least restrictive assistive device with supervision to promote a safe dc home. PT Goal #1 Date: 03/08/24 PT Goal #2: Patient will ambulate with least restrictive assistive device with supervision to promote a safe dc home. PT Goal #2 Date: 03/08/24 PT Goal #3: Patient will negotiate a flight of stairs with railing with close stand by assistance to promote a safe dc home. Plan Patient agrees with the plan of care and goals. Treatment Plan: PT Frequency: 6 times per week PT Amount: 1 visit per day PT Inpatient Duration : Until goals are met or hospital discharge Plan: Plan of care initiated PT Plan Comments: progressive therapeutic functional mobility training, balance/gait training, stair training, neuromuscular re-education, patient and family education Treatment interventions may include: Treatment/Interventions: Therapeutic exercise, Therapeutic functional activity, Neuromuscular re-education, Gait training Time Spent with Patient Therapeutic Interventions Gait Training (min): 26 min Time Tracking Total Timed Units (min): 26 min Total Treatment Time (min): 26 min Jacob Rey P.T., D.P.T. * Karolina Mckee M.S., O.T. - 03/04/2024 1:26 PM CDT Occupational Therapy Rehabilitation Acute Hospital Inpatient Progress Note SUBJECTIVE Patient's Name: David Castro Reason for Referral: OT eval and treat- brain consult Medical Diagnosis: 1. Stroke (HCC) [I63.9] 2. Stroke (HCC) 3. Lack Of Coordination [R27.9] History of Present Illness: Mr. Castro is an 83 yo R handed gentleman with PMH notable for pAF s/pWatchman 09/2023 subsequently on apixaban, ESRD on PD, hx of bleeding esophageal ulcers, HTN, ELENI. Pt admitted for workup of right medial thalamic infarct. Patient has left hemiparesis, right eye ptosis and vertical diplopia. Onset Date: 03/01/24 Patient/Caregiver Goals: Maximize indepenedence, return home. Patient Comments: Patient had just arrived from [facility]. Agreeable to OT session. I just don't feel like I can trust this left leg. Precautions Other Precautions: fall risk, left-side weakness, peritoneal dialysis catheter, right knee pain related to mensiscus injury, visuoperceptual deficits (hx of vertical diplopia, left eye blurriness, right eye ptosis - resolving) Fall Risk (65 and older) Fall in the last 12 months: Yes Did you have an injury with the fall?: No Are you fearful of falling?: Yes OBJECTIVE Pain: none indicated. Vitals: Not indicated at this time Baseline Vision/Correction: Wears glasses all the time Current Deficits Observed: Decreased ocular motility/range of motion, Convergence insufficiency, Ptosis (R eye ptosis, documented R CN III palsy (Campa's syndrome), hx of diplopia (improved)) Current Vision Comments: Patient presents and reports fluctuating visuoperceptual skills, acuity, and double vision. Patient's vision appears to be dependent on body positioning, glasses positioning,and fatigue. Therapist observed oculomotor fatigue with abduction and weak convergence. Patient wasable to read therapist's name badge and accurate time from clock on wall across the room without visual correction. Patient reports double vision with leftward gaze towards end range. Patient reportsdouble vision resolved with images at midline. Patient reports intermittent blurriness with upwards/downwards gaze. Alerted neurology MD of observations. Patient may benefit from follow-up with primary wellness trainer to assess current prescription as well. Sit to Stand Transfers # of Assistants: 1 Transfer Surface: Bed Transfer Equipment: Gait belt, Front wheeled walker Level of Assistance: Minimal assistance, Contact guard assistance Assessment/Delivery: Assessed, Facilitated, Instructed, Therapist assisted Comments: Patient initially unable to stand due to LLE slipping on floor surface, which patient attributes to sock alignment. Therapist recommended wearing shoes to optimize safety and performance. Elevated hospital bed to approximately 24. Patient then able to stand with contact-guard. Stand to Sit Transfers # of Assistants: 1 Transfer Surface: Bed Transfer Equipment: Gait belt, Front wheeled walker Level of Assistance: Contact guard assistance Assessment/Delivery: Assessed, Instructed, Therapist assisted, Facilitated Comments: Patient was excited to have his first meal of the day, moving quickly. Discarded walker and swiveled into bed before squaring up. Bed, Chair, Wheelchair Transfers # of Assistants: 1 Transfer Surface: Chair Transfer Approach: To and from, Ambulating Transfer Equipment: Front wheeled walker Level of Assistance: Contact guard assistance Assessment/Delivery: Assessed, Instructed, Therapist assisted, Facilitated Comments: Patient benefits from cues for walker management. Patient lost balance when turning left,nearly discarding walker, but was able to correct without hands-on assist. Patient reports he does not like to turn left for fear of falling. I just don't trust that leg. Patient/Family Education: - Role of OT, stroke recovery, plan of care (inpatient/outpatient) - Vision home exercise program (2x/daily) - Eye stretches, monocular, in 'x' and '+' pattern - Visual tracking, monocular, in 'x' and '+' pattern Education Provided to: patient and Learner's Response: Requires continued education At the end of today's therapy session patient was left in bed with an appropriate call light withinreach. Patient's needs and questions addressed during today's session. Assessment Patient is progressing with functional skills and activity tolerance but remains a fall risk with L-side weakness, fluctuating visuoperceptive skills, and unsteady gait. Today, patient's safety was optimized with intermittent assistance from 1 person and use of front-wheeled walker during mobility-related activities. Patient will continue to benefit from OT services and has goals appropriate for inpatient rehabilitation to maximize safety and independence prior to discharge. Patient's was present during OT session and reports interest in referrals to neuro PT/OT closer to their home areaif patient is discharged home. Barriers to Discharge Home: Current functional status, Fall risk Comorbid Conditions: Renal disease, Cardiopulmonary disease, Mental health disorder (CHF, ELENI, peritoneal dialysis, A-Fib, right frontal craniotomy due to brain abcess (2002)) Personal Factors: Visual impairment Level of Care Needed - OT: Assistance with toilet/shower transfers, Assistance with medication set up/administration, Assistance with meal preparation, Assistance with workday financials consultant, Assistance with transportation, Assistance with housekeeping, Assistance with shopping, Physical assistance needed Recommended Adaptive Equipment - OT: (ongoing assessment) Functional Goals and Timeframes: OT Goal #1: By goal review date, patient and will return-demonstrate and verbalize understanding of vision home exercise program for improved visual coordination and reduced diplopia 2/2 R CN III palsy. OT Goal #1 Status: Slowly progressing OT Goal #2: By goal review date, patient will demonstrate total-body dressing with modified independence. (Discont'd eye glasses taping goal. Patient reports that he does not like taping and prefers eye patch or no intervention when doing activity.) OT Goal #2 Status: Progressing OT Goal #3: By goal review date, patient will demonstrate toileting, including transfer, with modified independence. OT Goal #3 Status: Progressing OT Goal #4: By discharge, patient and/or family will verbalize plan to implement recommended levelsof assist and/or equipment for safe performance of daily tasks. OT Goal #4 Status: Progressing Progress: Progressing toward goals Plan Patient agrees with the plan of care and goals. Treatment Plan: OT Frequency: 5 times per week OT Amount: 1 visit per day OT Inpatient Duration : Until goals are met or hospital discharge Plan: Continue with current plan Treatment interventions may include: Treatment Interventions: Therapeutic exercise, Therapeutic functional activity, Neuromuscular re-education, Self-care/home management Time Spent with Patient Therapeutic Interventions Therapeutic Activity (min): 15 min Therapeutic Exercise (min): 10 min Time Tracking Total Timed Units (min): 25 min Total Treatment Time (min): 25 min Karolina Mckee M.S., O.T. * Buster Workman R.N. - 03/04/2024 12:39 PM CDT Patient discussed at Stroke multidisciplinary rounds. Patient is currently being followed by the following members of the Care Management team: Case Management Plan for the day: PT, OT, SECTION REPAIRER, FREDDIE, Monitor labs, Nephrology following, and Nutrition following Plan for stay: Stroke work up Discharge barriers: Inpatient needs Recommended discharge disposition: Home w/outpatient follow up As discussed, multidisciplinary team members have had ongoing care and discharge discussions with the Patient and Family. Multidisciplinary team indicated Patient and Family may benefit from the following discharge services: Skilled therapies (PT and/or OT and/or SECTION REPAIRER). * Stuart Mohan M.D. - 03/04/2024 10:57 AM CDT SUBJECTIVE No acute overnight events. 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 Anticipate dc home afterwards on DAPT x 21 days unless FREDDIE shows leak in Watchman or other cardioembolic source. Stuart Mohan MD Division of Cerebrovascular Diseases and Stroke Department of Neurology Pager # [phone] * Anika Lara, DWIGHT, C.N.P., M.S.N. - 03/04/2024 7:41 AM CDT NEPHROLOGY CONSULT SERVICE - PROGRESS NOTE Hospital Day 3 SUBJECTIVE Mr. Castro was seen and examined in his hospital room this afternoon. His was present during my visit. Mr. Castro was sitting at edge of bed during my visit. He reports no concerns overnight with peritoneal dialysis. He denies dyspnea, chest pain, nausea and vomiting. He is hopeful to go home later today, pending FREDDIE. I discussed if he dismisses later today, to continue his home PD regimen this evening. If he remains inpatient we will continue CCPD again tonight using his home prescription. He denies questions fornephrology. I have reviewed the current medication list. OBJECTIVE Admission weight: 79.6 kg Weights for the past 120 hrs (Last 3 readings): Weight 03/04/24 0555 81.6 kg 03/03/24 0516 81.1 kg 03/01/24 2336 79.6 kg I/O 03/02 0000 03/02 2359 03/03 0000 03/03 2359 03/04 0000 03/04 2359 P.O. 350 Other 0 Total Intake(mL/kg) 350 (4.4) Urine (mL/kg/hr) 0 (0) 0 (0) 0 (0) Stool 0 Dialysis 34 252 304 Total Output 34 252 304 Net +316 -252 -304 Unmeasured Urine Occurrence 4 x 5 x 2 x Unmeasured Stool Occurrence 2 x VITAL SIGNS Vitals No data to display. PHYSICAL EXAM General: Awake and alert, sitting on edge of bed, appears in no acute distress Lungs: Nonlabored breathing, continues on room air Extremities: No pitting edema bilateral lower extremities Abdomen: PD catheter, capped. No drainage or erythema present at catheter exit site. Nontender to palpation. 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 Castro underwent peritoneal dialysis overnight with an ultrafiltration of 314 mL (10 mL initial drain + 304 mL UF overnight). His weight this morning post PD disconnect was 81.6 kg. He has had lower ultrafiltration the past couple of nights inpatient as he does typically at home. He continues to appear euvolemic, although weight is slightly increased as well. Tonight, we will continue CCPD for 6 hours with 3 exchanges of 1.5L fill using 2.5% dextrose dianeal. No day dwell. We will attempt to connect Mr. Castro to his PD program around 1930 this evening, following his home schedule (either inpatient or outpatient, pending disposition). New Recommendations: -- CCPD tonight (see above) Continued Recommendations: -- Document strict intake and output -- Adult regular diet with 1.5 L/day fluid restriction -- Renally dose-adjust all medications for ESRD -- Cholecalciferol 25 mcg orally daily -- Dialyvite 1 tablet orally daily -- Gentamicin 0.1% cream daily to catheter exit site following site care with soap and water -- Torsemide 20 mg orally daily Dismissal Planning: -- Please keep nephrology informed of dismissal plans to ensure outpatient peritoneal dialysis arranged appropriately prior to hospital dismissal. Mr. Castro's case has been staffed with Dr. Rivera, Nephrology chain sales consultant. For questions or concerns, please contact Nephrology B CONVERTER SUPERVISOR/PA pager ([phone]). Associated attestation - Peng Rivera M.D. - 03/04/2024 1:38 PM CDT I met with TONI Lara and discussed and reviewed the patient's status. He has end-stage kidney disease from nephrosclerosis. He does home peritoneal dialysis. He was recently admitted for a stroke, which has improved. He has continued peritoneal dialysis in the hospital. We are managing in monitoring the peritoneal dialysis. * Abimael Mathias M.B.BBaileyS. - 03/04/2024 7:00 AM CDT Images from the original note were not included. NEUROLOGY STROKE SERVICE PROGRESS NOTE SUBJECTIVE Feels well. Continues to be bothered by diplopia which I expressed we expect to improve over subsequent weeks. Overview: FREDDIE at 9:45am today Vitals within normal range Peritoneal dialysis 03/03 HB 10.5, platelets 128, electrolytes normal, BUN 42, creatinine 4.60, EGFR under 15 I have reviewed the current medication list. On apixaban, atorvastatin 40, metoprolol and torsemide OBJECTIVE Temperature: [36.2 ??C-36.7 ??C] 36.7 ??C Resp Rate: [14-16] 16 Blood Pressure: (112-134)/(64-82) 125/64 SpO2: [90 %-99 %] 95 % Pulse Rate: [74-82] 82 Physical Exam: Constitutional: well-developed, well-nourished, resting comfortably in bed Lungs: Breathing comfortably on room air. Soft bibasilar fine crackles. No wheeze Cardiac: regular rate and rhythm Abdomen: Soft, non-tender, non-distended. Skin: No rash on exposed skin. Neurologic: Mental status: Alert and oriented to time, place and person Speech: Clear. Language: No evidence of aphasia. (Naming, reading, repetition and comprehension areintact.) Cranial nerves: PERRL 2 mm, mild right eye ptosis (significantly improved) but complete extraoculareye movements, visual ramirez intact to confrontation, left lip droop at rest, facial movements fulland symmetric, sensation intact to light touch and pinprick in the V1-V3 distributions, hearing intact to voice, tongue protrudes in midline, there is equal elevation of the soft palate, shoulder shru g is appropriate in strength. Motor: Very subtle satelliting around LUE. Bilateral upper and lower extremity strength evaluated including: (R, L) deltoids (0,0), biceps (0,0), triceps (0,- 0.5), wrist extension (0,0), finger extension (0,0), interossei (0,0), iliopsoas (0,0), knee flexion (0,0), knee extension (0,0), ankle dorsiflexion (0,0), toe extension (0,0). Tone is normal in bilateral upper and lower extremities. Sensory: Sensation is intact to vibration, proprioception, pinprick of distal extremities bilaterally. Reflexes: biceps (0,0), triceps (0,0), brachioradialis (0,0), patellar (0,1) and Achilles (0,0). Plantar flexor responses are flexor-flexor. Coordination: Finger to nose and heel to chambers are normal bilaterally. Gait: Appropriate width, normal arm swing, and speed. Narrow stance. Normal step size. Normal toe, heel and tandem walking. Turns without shuffling. NIH Stroke Scale 1A. LOC: 0=alert; keenly responsive 1B. Questions: 0=answers both questions correctly 1C. Commands: 0=Performs both tasks correctly 2. Best Gaze: 0=normal 3. Visual: 0=No visual loss 4. Facial Palsy: 0=Normal symmetric movement 5A. Left Arm Motor: 0=No drift, limb holds 90 (or 45) degrees for full 10 seconds 5B. Right Arm Motor: 0=No drift, limb holds 90 (or 45) degrees for full 10 seconds 6A. Left Leg Motor: 0=No drift, leg holds 30 degrees for full 5 seconds 6B. Right Leg Motor: 0=No drift, leg holds 30 degrees for full 5 seconds 7. Limb Ataxia: 0=Absent 8. Sensory: 1=Mild to moderate sensory loss; patient feels pinprick is less sharp or is dull on theaffected side; there is a loss of superficial pain with pinprick but patient is aware He is being touched 9. Best Language:0=No aphasia, normal 10. Dysarthria: 0=Normal 11. Extinction: 0=No abnormality TOTAL SCORE: 1 Diagnostics: I have reviewed the diagnostics from admission. Outside MRI H 03/01 Right medial thalamic infarct . Bilateral leukoaraiosis suggestive of small- vessel disease. CT Chest without IV Contrast Result Date: 03/02/2024 Impression: 1. Unable to evaluate for proximal embolic source in the absence of intravenous contrast. 2. New likely infectious/inflammatory groundglass opacities in the right lung. 3. New small left pleural effusion. 4. New indeterminate right middle lobe nodule measuring 3 mm. Recommend follow-up.5. Small volume ascites in the upper abdomen. ASSESSMENT / PLAN Mr. David Castro is a 83 y.o. 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 The patient is presenting with a right medial thalamic infarct that correlates to his mild left sided symptoms which have already shown interval improvement. 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 While the right CN 3 nucleus does not show diffusion restriction it lies immediately caudally to the infarct it was likely involved either by direct ischemia or secondary edema/mass effect. The etiology of the stroke is either small-vessel disease or cardioembolic source given recent Watchman insertion in 09/2023 and possible thrombus or leak. Reassuringly, no thrombus or leak was identified on FREDDIE in November. Per chart review, he should remain on Eliquis for 6 months post Watchman if there are no bleeding concerns. We have discussed this case with Cardiology who have low suspicion forcardioembolism given the reassuring recent FREDDIE. Nevertheless, we will proceed with a FREDDIE to rule this out. Another potential etiology could be small vessel disease particularly given extensive leukoaraiosis bilaterally; this will be a diagnosis of exclusion in this case. If ultimately is diagnos ed, we will proceed with 30 days of DAPT then transition to clopidogrel monotherapy as previously planned. In the meantime, we will resume his apixaban, start atorvastatin 40 mg, allow for permissionhypertension, and obtain stroke labs. Regarding his peritoneal dialysis, nephrology was contacted overnight and given stability of his electrolytes, can defer his normal session of dialysis until the morning. Today: If FREDDIE negative, transition to DAPT for 30 days then clopidogrel monotherapy indefinitely If FREDDIE negative discharge home # Right medial thalamic infarct, etiology cardioembolic versus small vessel # Campa's syndrome # Right CN3 palsy, improving # Left sided facial droop, mild # Left sided hemiparesis and hemisensory change, mild and improving # Binocular vertical diplopia, improving # Paroxysmal atrial fibrillation s/p watchman 10/17/23 on apixaban # Hypertension # Moderate to severe aortic stenosis # ELENI on CPAP # Esophageal ulcers with GI bleed # Prior right frontal craniotomy 2 brain abscess (2001) Workup: Neuroimaging: CTH/MRI/MRA notable for right medial temporal infarct, no LVO noted Baseline ECG pending Stroke labs: LDL 83, TSH 2.2, HbA1c 5.5 FREDDIE ideally Sunday 03/04, NPO Monday midnight Management Blood Pressure: Permit hypertension up to 220/110 for first 24 hours with PRN hydralazine 50 mg q6hr oral ordered Antihypertensives: resume home torsemide, metoprolol tartrate at 6.25 mg BID Antithrombotics: Continue apixaban 2.5 mg b.i.d. 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 # Prior complicated parapneumonic effusion in November 2021 Pulmonary curbside: Given stability of loculated right pleural effusion, this is not need follow up. Would recommend 1 year follow up for 3 mm pulmonary nodule. Otherwise for pulmonary fibrotic changes can consider outpatient CT chest follow up by PCP. We will reinitiate home torsemide and monitor for signs of pneumonia. # Esophageal ulcers with GI bleed # Achalasia # GERD Continue home famotidine and pantoprazole Monitor hemoglobin daily Diet: NPO for FREDDIE Tubes/lines: PIV VTE prophylaxis: therapeutic anticoagulation Code status: Full Code Surrogate Decision Maker: SpouseCynthia Disposition: Uncertain Plan discussed with [facility] Neurology Stroke and Cerebrovascular Disease Product Distribution Specialist, Dr. Mohan. Please page the [facility] Neurology Stroke and Cerebrovascular Disease service pager at [phone] with any questions. Avis Lugo. * Renae Sharma R.R.T., LBaileyR.T. - 03/03/2024 10:10 PM CDT 03/03/242049 BPAP/CPAP Therapy BPAP/CPAP Interface Full face mask BPAP/CPAP Interface Size Medium Skin barrier Self-adherent foam dressing $BPAP/CPAP Yes Ventilator Parameters Ventilator Parameters (Select Groups) BPAP/CPAP Rows BPAP/CPAP Mode CPAP NPPV EPAP (CPAP) Setting 14 cm H2O Humidification Heated humidifier Assisted patient with placement of PAP. No concerns at this time. Electronically signed by: Renae Sharma R.R.T., DuglasRBaileyTBailey 03/03/24 10:10 PM CDT * Deidra Rubi O.T. - 03/03/2024 4:33 PM CDT Occupational Therapy Acute Hospital Inpatient Progress Note SUBJECTIVE Patient's Name: David Castro Reason for Referral: OT eval and treat- brain consult Medical Diagnosis: 1. Stroke (HCC) [I63.9] History of Present Illness: Mr. Castro is an 83 yo R handed gentleman with PMH notable for pAF s/pWatchman 09/2023 subsequently on apixaban, ESRD on PD, hx of bleeding esophageal ulcers, HTN, ELENI. Pt admitted for workup of right medial thalamic infarct. Patient has left hemiparesis, right eye ptosis and vertical diplopia. Onset Date: 03/01/24 Patient/Caregiver Goals: Go home, improve vision Patient Comments: I don't have confidence. I'm afraid I will fall because of left side weakness. (Patient fell out of bed at home the morning of his stroke due to weakness) Precautions Other Precautions: peritoneal dialysis, right knee pain related to mensiscus injury, vertical diplopia, left eye blurriness, right eye ptosis Fall Risk (65 and older) Fall in the last 12 months: Yes Did you have an injury with the fall?: No Are you fearful of falling?: Yes OBJECTIVE ADL Comments ADL Comments: The patient ambulated in the hallway with contact guard assist, tactile cues for posture, and use of front wheeled walker for balance. Bed Mobility - Supine to Sit Level of Assistance: Independent Bed Mobility - Sit to Supine Level of Assistance: Independent Bed, Chair, Wheelchair Transfers Transfer Surface: Bed Transfer Approach: To and from, Ambulating Transfer Equipment: Front wheeled walker Level of Assistance: Contact guard assistance Assessment/Delivery: Assessed, Instructed, Therapist assisted, Facilitated Comments: tactile cues for upright posture Therapeutic Functional Activity Therapeutic Functional Activity Comments: The patient reported that he took the tape off his glasses and now has diplopia. He reported diplopia when trying to read his book last night and when watching tv today. The patient reports that he is unable to read text on tv with his glasses on and must remove his glasses to read the tv text. The patient was provided with an eye patch so he can easily remove and put on his glasses when watching tv without having diplopia. The patient was instructed inhome exercise program for diplopia. Eye exercises instructed in include range of motion, tracking, gaze stabilization, and spatial localization (right eye, left eye, and both eyes together for all exercises). Will instruct in fusion exercises on 03/04. At the end of today's therapy session patient was left in bed with an appropriate call light withinreach. Patient's needs and questions addressed during today's session. Assessment The patient was issued an eye patch as he removed the tape from his glasses and continued to have diplopia. The patient was instructed in a home eye exercise program for diplopia. Exercises included range of motion, tracking, gaze stabilization, and spatial localization. Will instruct in fusion exercises on 03/04 and assess medication management skills. Recommend continued skilled OT to maximize safety and independence with ADL's and mobility. Barriers to Discharge Home: Current functional status, Fall risk Comorbid Conditions: Renal disease, Cardiopulmonary disease, Mental health disorder (CHF, ELENI, peritoneal dialysis, A-Fib, right frontal craniotomy due to brain abcess (2001)) Personal Factors: Visual impairment Level of Care Needed - OT: Assistance with toilet/shower transfers, Assistance with medication set up/administration, Assistance with meal preparation, Assistance with workday financials consultant, Assistance with transportation, Assistance with housekeeping, Assistance with shopping, Physical assistance needed Skilled therapy can include occupational therapy provided by home health, outpatient clinic, or a post-acute facility. The location of these services is determined by the patient's care team in partnership with patient/family. Functional Goals and Timeframe's: OT Goal #1: Patient will be independent with home exercise program for diplopia. OT Goal #1 Status: Progressing OT Goal #2: Patient will demonstrate understanding of how to tape glasses for diplopia. OT Goal #2 Status: Progressing OT Goal #3: The patient will be independent with toileting and toilet transfers. OT Goal #3 Status: Progressing OT Goal #4: The patient will be independent with dressing. OT Goal #4 Status: Progressing Plan Patient agrees with the plan of care and goals. Treatment Plan: OT Frequency: 5 times per week OT Inpatient Duration : Until goals are met or hospital discharge Plan: Continue with current plan Treatment interventions may include: Treatment Interventions: Therapeutic exercise, Therapeutic functional activity, Neuromuscular re-education, Self-care/home management Time Spent with Patient Therapeutic Interventions Home Management Training (min): 8 min Therapeutic Activity (min): 23 min Time Tracking Total Timed Units (min): 31 min Total Treatment Time (min): 31 min Deidra Rubi O.T. * Opal Lauren, Trang.Ph. 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 PMH: paroxysmal atrial fibrillation s/p Watchman 10/17/23(recently switched from Eliquis to Plavix),hypertension, moderate to severe aortic stenosis, esophageal ulcers with GI bleed, ELENI on CPAP, ESRD(on peritoneal dialysis 6 days a week), s/p right frontal craniotomy secondary to brain abscess (2001) OBJECTIVE Home medications: Held: triamcinolone (KENALOG) 0.1 % cream, sucralfate, calcitriol, clopidogrel, docusate sodium Changed: famotidine daily to every other day, vit D dose reduction Patient own medications: none Prophylaxis: apixaban 2.5 mg bid BR+, LBM unknown ASSESSMENT / PLAN Right medial thalamic infarct/paroxysmal atrial fibrillation: continue home apixaban 2.5 mg bid Plan for FREDDIE on Monday to r/o no leakage in the Watchman If FREDDIE is unremarkable, plan for 21 days of DAPT followed by clopidogrel monotherapy 2. HTN/HLD: continue home Metoprolol tartrate 12.5 mg bid New Atorvastatin 40 mg qhs 3. GI bleed/GERD: continue home pantoprazole 40 mg bid famotidine 20 mg Q 48 hrs 4. ESRD: on PD Continue home torsemide 20 mg daily F/u Lab tomorrow On adult regular diet with 1.5 L/day fluid restriction: NPO at midnight Changes to medications anticipated at discharge:TBD Suzy BelloPh. * Stuart Mohan M.D. - 03/03/2024 12:43 PM CDT SUBJECTIVE No acute overnight events. OBJECTIVE PHYSICAL EXAM Ptosis is improving. No more weakness on exam. 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 However given recent Watchman device placement and stroke happening around Eliquis to Plavix switch warrants FREDDIE to make sure there is no leakage in the Watchman. Until work-up is complete, continue Eliquis. FREDDIE on Monday. If FREDDIE is unremarkable, plan for DAPT for 21 days followed by Plavix monotherapy. Continue PD by neph. Stuart Mohan MD Division of Cerebrovascular Diseases and Stroke Department of Neurology Pager # [phone] * Anika Lara, DWIGHT, C.N.P., M.S.N. - 03/03/2024 9:43 AM CDT NEPHROLOGY CONSULT SERVICE - PROGRESS NOTE Hospital Day 2 SUBJECTIVE Mr. Castro was seen and examined in his hospital room this morning. He was sitting on bedside at edge of bed. He voiced concerns regarding his low UF overnight with peritoneal dialysis. He states hetypically starts peritoneal dialysis earlier in the evening (about 1930) and disconnects around 0130. He reports having to reposition during drains at home sometimes. He denies feeling like he has PDfluid remaining in his peritoneal cavity. He refuses manual drain. He denies dyspnea, chest pain, nausea or vomiting. I discussed we will attempt to start his PD earlier tonight and follow his home timing as close as possible, noting this is not always possible inpatient. He notes understanding and is appreciative of our visit. He denies questions for nephrology. Per chart review, FREDDIE is planned for Monday03/04/2024 per neurology to assess watchman device, postinfarct. I have reviewed the current medication list. OBJECTIVE Admission weight: 79.6 kg Weights for the past 120 hrs (Last 3 readings): Weight 03/03/24 0516 81.1 kg 03/01/24 2336 79.6 kg I/O 03/01 0000 03/01 23503/02 0000 03/02 23503/03 0000 03/03 2359 P.O. 350 Other 0 Total Intake(mL/kg) 350 (4.4) Urine (mL/kg/hr) 0 (0) Dialysis 34 242 Total Output 34 242 Net +316 -242 Unmeasured Urine Occurrence 1 x 4 x VITAL SIGNS Vitals No data to display. PHYSICAL EXAM General: Awake and alert, sitting on bedside, appears in no acute distress Lungs: Lung sounds clear to auscultation bilateral anterior lung ramirez, unlabored breathing, continues on room air Extremities: No pitting edema bilateral lower extremities Abdomen: PD catheter, capped. Nontender to palpation. No drainage or erythema at catheter exit site. 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 aCstro underwent peritoneal dialysis overnight with an ultrafiltration of 276 mL (34 mL initial drain + 242 mL UF overnight). His weight this morning post PD disconnect was 81.1 kg. Tonight, we will continue CCPD for 6 hours with 3 exchanges of 1.5L fill using 2.5% dextrose dianeal. No day dwell. We will attempt to connect Mr. Castro to his PD program around 1930 this evening, following his home schedule. As part of required dialysis monitoring, his most recent Hepatitis B antibody had a quantitive value of 621 on 03/02/2024. Therefore, he does have immunity and requires yearly antibody monitoring. Hismost recent negative Hepatitis B antigen was on 03/02/2024. New Recommendations: -- CCPD tonight (see above) -- Renal function panel with am labs Monday Continued Recommendations: -- Document strict intake and output -- Adult regular diet with 1.5 L/day fluid restriction -- Renally dose-adjust all medications for ESRD -- Cholecalciferol 25 mcg orally daily -- Dialyvite 1 tablet orally daily -- Gentamicin 0.1% cream daily to catheter exit site following site care with soap and water -- Torsemide 20 mg orally daily Dismissal Planning: -- Please keep nephrology informed of dismissal plans to ensure outpatient peritoneal dialysis arranged appropriately prior to hospital dismissal. Mr. Castro's case has been staffed with Dr. Latrell Gardner, Nephrology chain sales consultant. For questions or concerns, please contact Nephrology B CONVERTER SUPERVISOR/PA pager ([phone]). Associated attestation - Cata Hernández M.D., Ph.D. - 03/03/2024 5:35 PM CDT Supervisory Note I have personally seen and examined the patient, reviewed all relevant labs, radiology studies, andchart notes and have discussed the assessment and plan with the Nephrology team. I have reviewed the Nephrology note associated with today???s encounter and agree with this documentation. Continue PD prescription as per home regimen. No changes made today. Irma Gardner M.D., Ph.D. * Abimael Mathias M.B.B.S. - 03/03/2024 6:42 AM CDT Images from the original note were not included. NEUROLOGY STROKE SERVICE PROGRESS NOTE SUBJECTIVE Some right elbow pain. Questions whether right eyelid ptosis we will improve. Otherwise feels well in himself. No new complaints. Overview: Vitals within normal range Peritoneal dialysis 03/02 Right elbow x-ray no acute fracture or traumatic malalignment; small effusion and demineralization PT/OT: some functional deficits due to diplopia, fear/imbalance of ambulation Stroke labs: LDL 83, TSH 2.2, HbA1c 5.5 HB 11, electrolytes normal, BUN 46, creatinine 4.48, EGFR under 15 I have reviewed the current medication list. On apixaban, atorvastatin 40, metoprolol and torsemide OBJECTIVE Temperature: [36.3 ??C-36.7 ??C] 36.7 ??C Resp Rate: [14-18] 18 Blood Pressure: (111-125)/(58-79) 125/79 SpO2: [96 %-100 %] 97 % Pulse Rate: [67-82] 78 Physical Exam: Constitutional: well-developed, well-nourished, resting comfortably in bed Lungs: Breathing comfortably on room air. Soft bibasilar fine crackles. No wheeze Cardiac: regular rate and rhythm Abdomen: Soft, non-tender, non-distended. Skin: No rash on exposed skin. Neurologic: Mental status: Alert and oriented to time, place and person Speech: Clear. Language: No evidence of aphasia. (Naming, reading, repetition and comprehension areintact.) Cranial nerves: PERRL 2 mm, right eye ptosis with down and out eye on primary gaze (improving) but complete extraocular eye movements, visual ramirez intact to confrontation, left lip droop at rest, facial movements full and symmetric, sensation intact to light touch and pinprick in the V1-V3 distributions, hearing intact to voice, tongue protrudes in midline, there is equal elevation of the soft palate, shoulder shrug is appropriate in strength. Motor: Very subtle satelliting around LUE. Bilateral upper and lower extremity strength evaluated including: (R, L) deltoids (0,0), biceps (0,0), triceps (0,- 0.5), wrist extension (0,0), finger extension (0,0), interossei (0,0), iliopsoas (0,0), knee flexion (0,0), knee extension (0,0), ankle dorsiflexion (0,0), toe extension (0,0). Tone is normal in bilateral upper and lower extremities. Sensory: Sensation is intact to vibration, proprioception, pinprick of distal extremities bilaterally. Reflexes: biceps (0,0), triceps (0,0), brachioradialis (0,0), patellar (0,1) and Achilles (0,0). Plantar flexor responses are flexor-flexor. Coordination: Finger to nose and heel to chambers are normal bilaterally. Gait: Appropriate width, normal arm swing, and speed. Narrow stance. Normal step size. Normal toe, heel and tandem walking. Turns without shuffling. NIH Stroke Scale 1A. LOC: 0=alert; keenly responsive 1B. Questions: 0=answers both questions correctly 1C. Commands: 0=Performs both tasks correctly 2. Best Gaze: 0=normal 3. Visual: 0=No visual loss 4. Facial Palsy: 0=Normal symmetric movement 5A. Left Arm Motor: 0=No drift, limb holds 90 (or 45) degrees for full 10 seconds 5B. Right Arm Motor: 0=No drift, limb holds 90 (or 45) degrees for full 10 seconds 6A. Left Leg Motor: 0=No drift, leg holds 30 degrees for full 5 seconds 6B. Right Leg Motor: 0=No drift, leg holds 30 degrees for full 5 seconds 7. Limb Ataxia: 0=Absent 8. Sensory: 1=Mild to moderate sensory loss; patient feels pinprick is less sharp or is dull on theaffected side; there is a loss of superficial pain with pinprick but patient is aware He is being touched 9. Best Language:0=No aphasia, normal 10. Dysarthria: 0=Normal 11. Extinction: 0=No abnormality TOTAL SCORE: 1 Diagnostics: I have reviewed the diagnostics from admission. Outside MRI H 03/01 Right medial thalamic infarct . Bilateral leukoaraiosis suggestive of small- vessel disease. CT Chest without IV Contrast Result Date: 03/02/2024 Impression: 1. Unable to evaluate for proximal embolic source in the absence of intravenous contrast. 2. New likely infectious/inflammatory groundglass opacities in the right lung. 3. New small left pleural effusion. 4. New indeterminate right middle lobe nodule measuring 3 mm. Recommend follow-up.5. Small volume ascites in the upper abdomen. ASSESSMENT / PLAN Mr. David Castro is a 83 y.o. 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 The patient is presenting with a right medial thalamic infarct that correlates to his mild left sided symptoms which have already shown interval improvement. 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 While the right CN 3 nucleus does not show diffusion restriction it lies immediately caudally to the infarct it was likely involved either by direct ischemia or secondary edema/mass effect. The etiology of the stroke is either small-vessel disease or cardioembolic source given recent Watchman insertion in 09/2023 and possible thrombus or leak. Reassuringly, no thrombus or leak was identified on FREDDIE in November. Per chart review, he should remain on Eliquis for 6 months post Watchman if there are no bleeding concerns. We have discussed this case with Cardiology who have low suspicion forcardioembolism given the reassuring recent FREDDIE. Nevertheless, we will proceed with a FREDDIE next week to rule this out. Another potential etiology could be small vessel disease particularly given extensive leukoaraiosis bilaterally; this will be a diagnosis of exclusion in this case. If ultimately SVDis diagnosed, we will proceed with 30 days of DAPT then transition to clopidogrel monotherapy as previously planned. In the meantime, we will resume his apixaban, start atorvastatin 40 mg, allow for permission hypertension, and obtain stroke labs. Regarding his peritoneal dialysis, nephrology was contacted overnight and given stability of his electrolytes, can defer his normal session of dialysis until the morning. 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) Workup: Neuroimaging: CTH/MRI/MRA notable for right medial temporal infarct, no LVO noted Baseline ECG pending Stroke labs: LDL 83, TSH 2.2, HbA1c 5.5 FREDDIE ideally Sunday 03/04, NPO Monday midnight Management Neuro Checks per Unit protocol => stat noncontrast head CT for change in exam Cardiac monitoring not ordered given known history of atrial fibrillation Monitor vitals per unit routine protocol Blood Pressure: Permit hypertension up to 220/110 for first 24 hours with PRN hydralazine 50 mg q6hr oral ordered Antihypertensives: resume home torsemide, metoprolol tartrate at 6.25 mg BID Antithrombotics: Continue apixaban 2.5 mg b.i.d. 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 # Prior complicated parapneumonic effusion in November 2021 Pulmonary curbside: Given stability of loculated right pleural effusion, this is not need follow up. Would recommend 1 year follow up for 3 mm pulmonary nodule. Otherwise for pulmonary fibrotic changes can consider outpatient CT chest follow up by PCP. We will reinitiate home torsemide and monitor for signs of pneumonia. # Esophageal ulcers with GI bleed # Achalasia # GERD Continue home famotidine and pantoprazole Monitor hemoglobin daily Diet: Diet Tubes/lines: PIV VTE prophylaxis: therapeutic anticoagulation Code status: Full Code Surrogate Decision Maker: Spouse, Cynthia Disposition: Uncertain Plan discussed with [facility] Neurology Stroke and Cerebrovascular Disease Product Distribution Specialist, Dr. Mohan. Please page the [facility] Neurology Stroke and Cerebrovascular Disease service pager at [phone] with any questions. Cinthya Lugo.B.B.S. * Michael López, C.N.ABailey - 03/02/2024 10:10 PM CDT 03/02/240 BPAP/CPAP Therapy BPAP/CPAP Interface Full face mask BPAP/CPAP Interface Size Medium Skin barrier Self-adherent foam dressing $BPAP/CPAP (yes) Ventilator Parameters Ventilator Parameters (Select Groups) BPAP/CPAP Rows BPAP/CPAP Mode CPAP NPPV EPAP (CPAP) Setting 14 cm H2O RT placed patient on CPAP/ BIPAP with the below settings for the night. Mepilex applied to the bridge of the nose. No respiratory concerns at time of placement. Electronically signed by: Michael López CBaileyNCurtis 03/02/24 10:11 PM CDT Under the direction of Hossein Deleon RRT * Latoya Patel, PharmCodie, R.Ph., BCP - 03/02/2024 12:25 PM CDT Images from the original note were not included. Admission Medication History Note Adherence issues: No concerns Medication list source: Patient and Pharmacy or dispense records Medication related information: added Elana-chapito Rx & removed Dialyvite Prior to Admission Medications Med List Status: Pharmacy/RN Complete Set By: Latoya Patel, Louie., R.Ph., [facility] at 03/02/2024 12:18 PM Taking? Last Dose Informant Start Date End Date LT allopurinol (ZYLOPRIM) 100 mg tablet 03/01/2024 at 0600 -- 11/09/18 -- Take 100 mg by mouth every morning. amoxicillin (AMOXIL) 500 mg capsule More than a month -- 05/30/22 -- Take 4 capsules by mouth once as needed (Dental procedures). Notes: Pt takes it an hour before his appointment apixaban (ELIQUIS) 2.5 mg tablet 02/29/2024 -- 10/17/23 04/14/24 Take 1 tablet (2.5 mg total) by mouth 2 (two) times a day. Notes: Patient stated that he ran out. calcitRIOL (ROCALTROL) 0.25 mcg capsule 03/01/2024 at 0600 -- 12/27/18 -- Take 1 capsule by mouth 3 (three) times a week. Monday, Monday, Monday cholecalciferol (VITAMIN D3) 50 mcg (2,000 Unit) tablet 03/01/2024 at 1700 -- 08/29/22 -- Take 1 tablet by mouth daily. clopidogreL (PLAVIX) 75 mg tablet 03/01/2024 at 0600 -- 04/17/24 -- Take 1 tablet (75 mg total) by mouth daily. Start after Eliquis therapy completed and continue lifelong as tolerated. docusate sodium (COLACE) 100 mg capsule 03/01/2024 at 0600 -- -- -- Take 100 mg by mouth daily. famotidine (PEPCID) 20 mg tablet 03/01/2024 at 2000 -- 07/25/23 -- TAKE 1 TABLET BY MOUTH AT BEDTIME Notes: Please send a replace/new response with 100-Day Supply if appropriate to maximize member benefit. Requesting 1 year supply. gentamicin (GARAMYCIN) 0.1 % cream Unknown -- 06/01/22 -- Apply 1 Application topically as needed. Notes: Pt stated that he does not take it anymore metoprolol tartrate (LOPRESSOR) 25 mg tablet 03/01/2024 at 1700 -- -- -- Take 12.5 mg by mouth 2 (two) times a day. multivitamin renal failure (DIALYVITE) 100-1 mg tablet Unknown at 1700 -- 12/08/21 -- Take 1 tablet by mouth daily with dinner. pantoprazole (PROTONIX) 40 mg EC tablet 03/01/2024 at 1700 -- 06/04/22 -- Take 40 mg by mouth 2 (two) times a day before breakfast and dinner. Elana-Chapito Rx 1-60-300 mg-mg-mcg tablet 03/01/2024 -- 02/15/24 -- Take 1 tablet by mouth daily. sucralfate (CARAFATE) 100 mg/mL suspension Unknown -- 08/07/23 -- Take 10 mL (1 g total) by mouth every 6 (six) hours as needed (If esophageal bleeding.). Notes: Pt stated that he does not take it anymore torsemide (DEMADEX) 20 mg tablet 03/01/2024 at 0600 -- 12/12/21 -- Take 1 tablet (20 mg total) by mouth daily. triamcinolone (KENALOG) 0.1 % cream Unknown -- 09/20/22 -- Apply 1 Application topically as needed for irritation. Notes: Pt stated that he does not take it anymore * Abimael Mathias, M.B.B.S. - 03/02/2024 8:47 AM CDT Images from the original note were not included. NEUROLOGY STROKE SERVICE PROGRESS NOTE SUBJECTIVE Some right elbow pain. Questions whether right eyelid ptosis we will improve. Otherwise feels well in himself. No new complaints. Overview: Vitals within normal range Stroke labs: LDL 83, TSH 2.2, HbA1c 5.5 HB 11.2, BUN 43, creatinine 4.47, EGFR under 15 I have reviewed the current medication list. OBJECTIVE Temperature: [36.2 ??C-36.3 ??C] 36.3 ??C Resp Rate: [14-75] 16 Blood Pressure: (112-131)/(63-74) 117/74 SpO2: [97 %-99 %] 97 % Pulse Rate: [68-77] 69 Physical Exam: Constitutional: well-developed, well-nourished, resting comfortably in bed Lungs: Breathing comfortably on room air. Soft bibasilar fine crackles. No wheeze Cardiac: regular rate and rhythm Abdomen: Soft, non-tender, non-distended. Skin: No rash on exposed skin. Neurologic: Mental status: Alert and oriented to time, place and person Speech: Clear. Language: No evidence of aphasia. (Naming, reading, repetition and comprehension areintact.) Cranial nerves: PERRL 2 mm, right eye ptosis with I down and out on primary gaze but complete extraocular eye movements, visual ramirez intact to confrontation, left lip droop at rest, facial movements full and symmetric, sensation intact to light touch and pinprick in the V1-V3 distributions, hearing intact to voice, tongue protrudes in midline, there is equal elevation of the soft palate, shoulder shrug is appropriate in strength. Motor: Very subtle satelliting around LUE. Bilateral upper and lower extremity strength evaluated including: (R, L) deltoids (0,0), biceps (0,0), triceps (0,0), wrist extension (0,0), finger extension (0,0), interossei (0,0), iliopsoas (0,0), knee flexion (0,0), knee extension (0,0), ankle dorsiflexion (0,0), toe extension (0,0). Tone is normal in bilateral upper and lower extremities. Sensory: Sensation is intact to vibration, proprioception, pinprick of distal extremities bilaterally. Reflexes: biceps (0,0), triceps (0,0), brachioradialis (0,0), patellar (0,1) and Achilles (0,0). Plantar flexor responses are flexor-flexor. Coordination: Finger to nose and heel to chambers are normal bilaterally. Gait: Appropriate width, normal arm swing, and speed. Narrow stance. Normal step size. Normal toe, heel and tandem walking. Turns without shuffling. NIH Stroke Scale 1A. LOC: 0=alert; keenly responsive 1B. Questions: 0=answers both questions correctly 1C. Commands: 0=Performs both tasks correctly 2. Best Gaze: 0=normal 3. Visual: 0=No visual loss 4. Facial Palsy: 0=Normal symmetric movement 5A. Left Arm Motor: 0=No drift, limb holds 90 (or 45) degrees for full 10 seconds 5B. Right Arm Motor: 0=No drift, limb holds 90 (or 45) degrees for full 10 seconds 6A. Left Leg Motor: 0=No drift, leg holds 30 degrees for full 5 seconds 6B. Right Leg Motor: 0=No drift, leg holds 30 degrees for full 5 seconds 7. Limb Ataxia: 0=Absent 8. Sensory: 1=Mild to moderate sensory loss; patient feels pinprick is less sharp or is dull on theaffected side; there is a loss of superficial pain with pinprick but patient is aware He is being touched 9. Best Language:0=No aphasia, normal 10. Dysarthria: 0=Normal 11. Extinction: 0=No abnormality TOTAL SCORE: 1 Diagnostics: I have reviewed the diagnostics from admission. Outside MRI H 03/01 Right medial thalamic infarct . Bilateral leukoaraiosis suggestive of small- vessel disease. CT Chest without IV Contrast Result Date: 03/02/2024 Impression: 1. Unable to evaluate for proximal embolic source in the absence of intravenous contrast. 2. New likely infectious/inflammatory groundglass opacities in the right lung. 3. New small left pleural effusion. 4. New indeterminate right middle lobe nodule measuring 3 mm. Recommend follow-up.5. Small volume ascites in the upper abdomen. ASSESSMENT / PLAN Mr. David Castro is a 83 y.o. 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 The patient is presenting with a right medial thalamic infarct that correlate to his mild left sided symptoms which have already shown interval improvement. 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 While the right CN 3 nucleus does not show diffusion restriction it lies immediately caudally to the infarct it was likely involved either by direct ischemia or secondary edema/mass effect. The etiology of the stroke is either small-vessel disease or cardioembolic source given recent Watchman insertion in 09/2023 and possible thrombus or leak. Reassuringly, no thrombus or leak was identified on FREDDIE in November. Per chart review, he should remain on Eliquis for 6 months post Watchman if there are no bleeding concerns. We have discussed this case with Cardiology who have low suspicion forcardioembolism given the reassuring recent FREDDIE. Nevertheless, we will proceed with a FREDDIE next week to rule this out. Another potential etiology could be small vessel disease particularly given extensive leukoaraiosis bilaterally; this will be a diagnosis of exclusion in this case. In the meantime, we will resume his apixaban, start atorvastatin 40 mg, allow for permission hypertension, and obtainstroke labs. Regarding his peritoneal dialysis, nephrology was contacted overnight and given stability of his electrolytes, can defer his normal session of dialysis until the morning. Noncontrast CT of the thorax incidentally identified asymptomatic infectious/inflammatory groundglass opacities in the right lung, bilateral small pleural effusions, and small volume ascites. We willreinitiate home torsemide and monitor for signs of pneumonia. More concerning, the patient does have right-sided pleural thickening with small loculated effusion and a new indeterminate right middle lobe nodule measuring 3 mm. He has a history of complicated parapneumonic effusion in November 2021 which required drainage with a pigtail catheter and left upper lobe infiltrates seen on CT chest December 2021. Pulmonary medicine was curbsided. Given stability of loculated right pleural effusion, this doesnot need follow up. They would recommend 1 year follow up for 3 mm pulmonary nodule. Otherwise for pulmonary fibrotic changes can consider outpatient CT chest follow up by PCP. 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) Workup: Neuroimaging: CTH/MRI/MRA notable for right medial temporal infarct, no LVO noted Baseline ECG pending Stroke labs: LDL 83, TSH 2.2, HbA1c 5.5 FREDDIE ideally Sunday 03/04, NPO Monday midnight Management Neuro Checks per Unit protocol => stat noncontrast head CT for change in exam Cardiac monitoring not ordered given known history of atrial fibrillation Monitor vitals per unit routine protocol Blood Pressure: Permit hypertension up to 220/110 for first 24 hours with PRN hydralazine 50 mg q6hr oral ordered Antihypertensives: resume home torsemide, metoprolol tartrate at 6.25 mg BID Antithrombotics: Continue apixaban 2.5 mg b.i.d., last dose 02/28 evening per pt Statin: atorvastatin 40 mg daily BG Goal: 140-180 Brain Rehab Team consulted, appreciate recs SECTION REPAIRER consulted for dysarthria, appreciate recs WS consulted for assistance with d/c planning, appreciate recs # ESRD on peritoneal dialysis 6 days a week # 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 # Prior complicated parapneumonic effusion in November 2021 Pulmonary curbside: Given stability of loculated right pleural effusion, this is not need follow up. Would recommend 1 year follow up for 3 mm pulmonary nodule. Otherwise for pulmonary fibrotic changes can consider outpatient CT chest follow up by PCP. We will reinitiate home torsemide and monitor for signs of pneumonia. # Esophageal ulcers with GI bleed # Achalasia # GERD Continue home famotidine and pantoprazole Monitor hemoglobin daily Diet: Diet Tubes/lines: PIV VTE prophylaxis: therapeutic anticoagulation Code status: Full Code Surrogate Decision Maker: SpouseCynthia Disposition: Uncertain Plan discussed with [facility] Neurology Stroke and Cerebrovascular Disease Product Distribution Specialist, Dr. Mohan. Please page the [facility] Neurology Stroke and Cerebrovascular Disease service pager at [phone] with any questions. Laura LugoBBaileyS. * Renae Sharma R.R.T., L.R.T. - 03/02/2024 1:10 AM CDT 03/02/24 0110 BPAP/CPAP Therapy BPAP/CPAP Interface Under the nose cushion BPAP/CPAP Interface Size B Skin barrier Not indicated per interface $BPAP/CPAP Yes Ventilator Parameters Ventilator Parameters (Select Groups) BPAP/CPAP Rows BPAP/CPAP Mode CPAP NPPV EPAP (CPAP) Setting 14 cm H2O Set patient up on home setting of CPAP 14 cm h20. UTN B mask. Electronically signed by: Renae Sharma R.R.T., L.R.T. 03/02/24 5:19 AM CDT * Logan Ibarra R.N. - 03/02/2024 1:[address] Renae Ardon Requested for tele monitoring to be d/c and to keep pt NPO for possible FREDDIE in the morning d/t pt refusing cardiac CT with contrast. She also mentioned no peritoneal dialysis tonight, nephrology team will see pt in the morning per provider's report. documented in this encounter H&P Notes * Stuart Mohan M.D. - 03/02/2024 2:01 PM CDT SUBJECTIVE HISTORY OF PRESENT ILLNESS I have reviewed the resident physician's history, examination, and plan of care as documented on the electronic neurologic examination and history. I have personally interviewed and examined the patient. I agree with the documentation, other than where indicated in my note. OBJECTIVE PHYSICAL EXAM Please see the admitting resident's note for complete details. In brief, right eye ptosis and orbiting around left arm (mild left weakness) ASSESSMENT / PLAN #1 Cerebral infarction in the medial thalamus with midbrain extension #2 Partial third nerve palsy #3 Left mild hemiparesis #4 Mild Campa's syndrome #5 ESRD on PD #6 Afib s/p Watchman device on therapeutic AC with Eliquis (renally dosed) #7 GERD #8 ELENI on CPAP #9 Chronic right pleural effusion #10 Personal history of right frontal craniotomy secondary to brain abscess #11 Moderate to severe aortic stenosis #12 Personal history of GI bleed with esophageal ulcers Stroke is in the small vessel territory. However given recent Watchman device placement and stroke happening around Eliquis to Plavix switch warrants FREDDIE to make sure there is no leakage in the Watchman. Until work-up is complete, continue Eliquis. FREDDIE on Monday. Working with therapies. PD with neph team. Pleural effusion is chronic. Discussed with pulm and they recommended a yearly follow-up. Improving. Stuart Mohan MD Division of Cerebrovascular Diseases and Stroke Department of Neurology Pager # [phone] * Damaso Cuevas M.D. - 03/02/2024 1:27 AM CDT Neurology Senior Supervisory Note This is a supervisory note for Dr. Manzanares. Please see her H&P for full history, exam, and details of plan. HPI Mr. Castro is an 83 yo R handed gentleman with PMH notable for pAF s/p Watchman 09/2023 subsequently on apixaban, ESRD on PD, hx of bleeding esophageal ulcers, HTN, ELENI. Pt admitted for workup of L thalamic infarct. LKW 1 AM 03/01. Pt woke up at around 7 AM and fell out of bed because he felt weak on his left side.He also had a facial droop that started at some point today. He also noticed binocular vertical diplopia which started at some point today, he is not exactly sure when, though it was definitely present by the time he had his MRI. Due to ongoing symptoms he presented to the hospital in [place] this afternoon for evaluation. OSH NIHSS of 5. MRI brain with medial thalamic infarct, no LVO. No TNK as out of the window. Subsequently transferred to [facility] for further workup. Of note pt reports he ran out of apixaban and his last dose was the morning of 02/28, he missed the evening dose. Starting 03/01 he was supposed to transition down to clopidogrel and he did take the first dose of that this morning. Exam Exam notable for R sided ptosis but no clear facial droop. Pt not fully cooperative with eye exam but no clear disconjugation of gaze. Mild LUE weakness with satelliting. LLE no drift. No aphasia. Nohemisensory loss on my exam. Assessment and Plan Etiology of his thalamic infarct unclear. Recent watchman placement and missed dose of apixaban could suggest cardioembolic etiology. Also c/f possible leak around Watchman. Stroke could also be small vessel in etiology though risk factors appear well optimized on initial lab work. Further evaluation for possible cardioembolic source seems reasonable. - Pt refused cardiac CT at admission due to concerns re: contrast despite assurances from myself and radiology - NPO @ AR for possible FREDDIE tomorrow - Continue home apixaban (will defer the down step to clopidogrel for now) - Standard stroke labs - PT/OT consults - Neph consult for assistance w/ PD Damaso Cuevas MD Adult Neurology PGY-4 * Renae Manzanares M.D. - 03/01/2024 7:48 PM CDT Images from the original note were not included. Cerebrovascular Neurology Admission Note SUBJECTIVE CHIEF COMPLAINT Direct admit for stroke workup, left sided weakness HISTORY OF PRESENT ILLNESS: Mr. David Csatro is a 83 y.o. right handed male is a direct admit for left sided weakness and facial droop with MRI showing right medial thalamic infarct. Medical comorbidities Paroxysmal atrial fibrillation status post Watchman 10/17/23 on Eliquis, now transitioned to Plavix on 03/01 Hypertension Moderate to severe aortic stenosis GI bleed with esophageal ulcers (EGD 08/2022 with superficial healing esophageal ulcers) Achalasia GERD ESRD on peritoneal dialysis 6 days a week with anemia Obstructive sleep apnea on CPAP Right frontal craniotomy secondary to brain abscess (2001) Chronic right pleural effusion Right knee arthroscopy for torn meniscus 11/2023 Due to the patient's history of paroxysmal atrial fibrillation and GI bleed, he was not on anticoagulation and a Watchman device was pursued and implanted by Dr. Andrade on 10/17/23 without complication. FREDDIE on 11/27/23 showed no left atrial appendage thrombus or leak. No shunt was noted as well. He wasinstructed to complete a 6 month course of Eliquis 2.5 mg twice daily after Watchman implantation with a plan to transition to lifelong clopidogrel 75 mg daily monotherapy lifelong afterwards. His last known well was 1 AM on 03/01/24 (gets up to urinate). He states that he woke up at 7 AM andfell out of bed due to left sided weakness after rolling over to turn off his dialysis machine. He hit his right elbow and his head. His had to help him get upHe proceeded to eat breakfast and lunch and then decided to go to [facility] around 1 PM due to persistence of his symptoms. He states he did not notice any facial droop but was told by staff he had a droop. Regarding his Eliquis, he ran out this week with his last dose 02/28 AM. He then transitioned Plavix 75 mg daily this morning. He does note binocular vertical diplopia that also started around the time of symptom onset.He denies any other medications changes, headaches, dysphagia, dysarthria, word-finding difficulty, history of strokes, history of [place] or bleeding. In the [facility] ED, he was hemodynamically stable with BP 145/72. Labs were notable for stable anemia of 11.2, INR of 1.1, and glucose of 115. His NIHSS was 5 (left sided weakness and aphasia). ECG showed atrial fibrillation with ventricular escape complexes and nonspecific intraventricular block. Imaging including CT head, MRI/MRA head/neck was notable for a medial thalamic infarct and no large vessel occlusion. He was then transferred to [facility] for further cares. On the floor, he endorsed the history as above. He states that his will be coming in the morning. Attempted to obtain a cardiac CT however in radiology, the patient was adamant on not receiving any contrast without talking to a scroll machine operator. Review of Systems: ROS as stated in the HPI, all other systems were reviewed and are negative PAST MEDICAL/SURGICAL HISTORY Past Medical History: Diagnosis Date Apnea Sleep Obstructive Atrial Fibrillation Unspecified (HCC) Cataract Gastroesophageal Reflux Disease NOS Hypertension NOS Renal Disease Stroke (HCC) SOCIAL HISTORY He quit smoking in 1961 He has not consumed alcohol since 1968 Denies any marijuana or illicit drug use FAMILY HISTORY Family History Problem Relation Name Age of Onset Dementia Mother Mother OBJECTIVE Temperature: [36.3 ??C] 36.3 ??C Resp Rate: [14-75] 14 Blood Pressure: (115-131)/(63-73) 115/73 SpO2: [97 %] 97 % Pulse Rate: [75-77] 77 Physical Exam: Constitutional: well-developed, well-nourished, resting comfortably in bed Lungs: Breathing comfortably on room air. Clear to auscultation anteriorly Cardiac: irregular rate and rhythm, no lower extremity edema Abdomen: Soft, non-tender, non-distended. Skin: No rash on exposed skin. Neurologic: Mental status: Alert and oriented to time, place and person Speech: Mild dysarthria. Language: No evidence of aphasia. (Naming, reading, repetition and comprehension are intact.) Cranial nerves: PERRL, EOMI, visual ramirez intact to confrontation, does have vertical binocular diplopia that disappears with monocular vision, right eye ptosis, mild left facial droop, sensation decreased to pinprick in the V1-V3 distributions on the left, hearing intact to voice, tongue protrudes in midline, there is equal elevation of the soft palate, shoulder shrug is appropriate in strength. Motor: Bilateral upper and lower extremity strength evaluated including: (R, L) deltoids (0,0), biceps (0,0), triceps (0,-0.5), wrist extension (0,0), finger extension (0,-0.5), interossei (0,-0.5), iliopsoas (0,0), knee flexion (0,-0.5), knee extension (0,0), ankle dorsiflexion (0,-0.5), toe extension (0,0). Left arm drift noted. Some satelliting Sensory: Sensation decreased to pinprick on the left. Proprioception intact bilaterally Reflexes: biceps (0,0), triceps (0,0), brachioradialis (0,0), patellar (0,0) and Achilles (0,0). Plantar flexor responses are flexor-flexor. Coordination: Finger to nose and heel to chambers are normal bilaterally. Gait: deferred NIH Stroke Scale 1A. LOC: 0=alert; keenly responsive 1B. Questions: 0=answers both questions correctly 1C. Commands: 0=Performs both tasks correctly 2. Best Gaze: 0=normal 3. Visual: 0=No visual loss 4. Facial Palsy: 1=Minor paralysis (flattened nasolabial fold, asymmetric on smiling) 5A. Left Arm Motor: 1=Drift, limb holds 90 (or 45) degrees but drifts down before full 10 seconds: does not hit bed 5B. Right Arm Motor: 0=No drift, limb holds 90 (or 45) degrees for full 10 seconds 6A. Left Leg Motor: 0=No drift, leg holds 30 degrees for full 5 seconds 6B. Right Leg Motor: 0=No drift, leg holds 30 degrees for full 5 seconds 7. Limb Ataxia: 0=Absent 8. Sensory: 1=Mild to moderate sensory loss; patient feels pinprick is less sharp or is dull on theaffected side; there is a loss of superficial pain with pinprick but patient is aware He is being touched 9. Best Language:0=No aphasia, normal 10. Dysarthria: 1=Mild to moderate, patient slurs at least some words and at worst, can be understood with some difficulty 11. Extinction: 0=No abnormality TOTAL SCORE: 4 Diagnostics: I have reviewed the diagnostics from admission. ASSESSMENT / PLAN Mr. David Castro is a 83 y.o. male is hospitalized on the cerebrovascular neurology service for workup and management of left sided facial droop and weakness, found to have right medial thalamic infarct. He has pertinent medical comorbidities of [facility]oxysmal [facility] recently switched from Eliquis to Plavix, hypertension, moderate to severe aortic stenosis, esophageal ulcers with GI bleed, ELENI on CPAP, ESRD on peritoneal dialysis 6 days a week, andright frontal craniotomy secondary to brain abscess (2001). The patient is presenting with a right medial thalamic infarct that correlate to his left sided symptoms. Etiology is unclear at this time but on the differential would be cardioembolic given a missed dose of Eliquis on 02/28 PM with transition to Plavix on 03/01 and his complicated cardiac history of recent Watchman in 09/2023 and possible thrombus or leak. Per chart review, he should remain on Eliquis for 6 months post Watchman if there are no bleeding concerns. Another potential etiology could be small vessel disease but this is less likely given the location of the infarct and overall well-controlled blood pressures since admission (110-140s systolics) . For further evaluation, we attempted to get a cardiac CT this evening however patient declined due to the need for contrast in the setting of his ESRD on peritoneal dialysis. Will keep the patient NPO for possible FREDDIE versus re-attempting cardiac CT in the morning. In the meantime, we will resume his Eliquis, start atorvastatin 40 mg, allow for permission hypertension, and obtain stroke labs. Regarding his peritoneal dialysis, nephrology was contacted overnight and given stability of his electrolytes, can defer his normal session of dialysis until the morning. #Right medial thalamic infarct, etiology cardioembolic versus small vessel #Left sided facial droop #Left sided hemiparesis #Binocular vertical diplopia #Paroxysmal atrial fibrillation status post watchman 10/17/23 switched from Eliquis to Plavix #Hypertension #Moderate to severe aortic stenosis #ELENI on CPAP #Esophageal ulcers with GI bleed #hx of right frontal craniotomy 09/22 brain abscess Workup: - Neuroimaging -CTH/MRI/MRA notable for right medial temporal infarct, no LVO noted - Baseline ECG pending - Stroke risk factor work up: - HbA1c, fasting lipid panel, TSH ordered - Echocardiogram-consider FREDDIE in the AM Management: - Neuro Checks per Unit protocol => stat noncontrast head CT for change in exam - cardiac monitoring not ordered given known history of atrial fibrillation - Monitor vitals per unit routine protocol - Blood Pressure: - Permit hypertension up to 220/110 for first 24 hours with PRN hydralazine 50 mg q6hr oral ordered - Antihypertensives: hold home torsemide, resumed metoprolol tartrate at 6.25 mg BID (half home dose) - Blood Glucose - BG Goal: 140-180 - Antithrombotics: defer given anticoagulation with Eliquis and GI bleed history - Statin: atorvastatin 40 mg daily - Brain Rehab Team consulted, appreciate recs -SECTION REPAIRER consulted for dysarthria, appreciate recs - SWS consulted for assistance with d/c planning, appreciate recs -NPO for possible FREDDIE versus cardiac CT in the AM -CPAP -resume Eliquis 2.5 mg BID, last dose 02/28 AM and took Plavix 75 mg 03/01 AM #ESRD on peritoneal dialysis 6 days a week #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 [facility] Stroke Neurology Service Community Outreach Worker: Stuart Mohan M.D. Anna Liu, M.D. 03/02/24 STROKE DOCUMENTATION: Stroke Center Measures: Did this patient have a possible stroke/TIA/hemorrhage?: Yes Type of stroke: Ischemic stroke/Transient ischemic attack Time NIHSS completed: 03/01/2024 11:48 PM Admission NIHSS total score: 4 Time patient last known well: 03/01/2024 1:00 AM Onset of symptoms - time: 03/01/2024 7:00 AM Patient received IV thrombolytic?: No Reason not a candidate: Symptom onset beyond time window Intra-arterial candidate for intervention?: No Reason not a candidate: Not performed due to stroke topography Patient admitted solely for an elective carotid intervention: No Antithrombotic started on admission: Other Dysphagia screen performed before oral intake: performed and passed, patient kept NPO for possible procedure. Prestroke modified [place] Score (mRS): 0 - No symptoms. Physical Medicine (PMR) consulted: Consulted and will evaluate the patient Speech therapy consulted to evaluate patient: Consulted and will evaluate the patient Pharmacologic VTE prophylaxis: not instituted because of contraindication Contraindication for pharmacologic VTE prophylaxis: other (on anticoagulation) Tobacco use: Does not use tobacco Fasting lipids performed: Will be performed in the morning Patient on lipid-lowering agent prior to arrival?: No Relevant cerebrovascular risk factors: Hypertension, sleep apnea and atrial fib (history of any atrial fib remote, persistent, or paroxysmal or atrial flutter in the past, or current atrial fib or flutter on EKG) documented in this encounter Consult Notes * Edison Vazquez M.D. - 03/04/2024 4:17 PM CDTAssociated Order(s): Physical Medicine and Rehabilitation consult (hospital) SUBJECTIVE REASON FOR CONSULT Physical Medicine and Rehabilitation consult (hospital) Referring Provider: Abimael Mathias M.B.B.S. Reason for Consult: right thalamic infarct with improving deficits (mild left hemiparesis, right CN3 palsy); candidate for IPR? HISTORY OF PRESENT ILLNESS Mr. Castro is a 83-year-old right-hand dominant gentleman who lives with his in a 1 level home in [place], [place]; he retired from working at [employer] many years ago. His past medical history includes hypertension, aortic stenosis, GI bleed with esophageal ulcers, achalasia, ESRD on peritoneal dialysis, obstructive sleep apnea on CPAP, right knee arthroscopic surgery for torn meniscus November 2023, paroxysmal atrial fibrillation status post Watchman October 17, 2023, and a brain abscess status post right frontal craniotomy 2001. He was under my care on the [address] [place] [address] acute rehab unit from June 25 - 2001 with an excellent outcome. He has been functioning completely independently. Mr. Castro had his last dose of Eliquis on February 28 with plans to transition to Plavix. Then on themorning of March 01 the patient fell out of bed due to left- sided weakness. His had to help himup; however, since his weakness persisted he presented to the [place] ED around 1:00 p.m. in theafternoon. In addition to the mild left-sided weakness, he noted double vision. The patient's neurological workup included an MRI/MRA of the head/neck that showed a right medial thalamic acute infarct. He was subsequently transferred to [facility] [place] for furthercare. An echocardiogram did not show a definitive source of an embolism. The source of the stroke was thought to be either embolic or small-vessel disease. The plan is to utilize dual antiplatelet therapy for 21 days. Mr. Castro has been evaluated by physical and occupational therapy; he requires contact guard to minimal assistance with mobility and self cares. Therefore, there is concern about safety to return directly home and PM&R is asked to assess for rehab. OBJECTIVE PHYSICAL EXAMINATION General: Very pleasant 83-year-old gentleman who appears in no significant distress. Neuro: Alert and oriented; speech is clear. There are no gross cognitive/language impairments. There is slight right ptosis; does quite well with extraocular movements. He indicates that he has double vision in reading a sentence on the TV screen; however, he is able to read it. On motor testing, he has just a trace of distal left upper extremity weakness particularly with interosseous; AMRs are slowed on the left as well. In the left leg, he had just a trace of left hip flexor weakness compared to the right. His sensation to touch was intact including double simultaneous stimulation. ASSESSMENT / PLAN #1 Right thalamic infarct with diplopia and trace left-sided weakness #2 History of brain abscess status post right frontal craniotomy 2001 #3 Paroxysmal atrial fibrillation status post Watchman October 17, 2023 #4 Obstructive sleep apnea on CPAP #5 ESRD on peritoneal dialysis #6 Right knee pain status post arthroscopic surgery for torn meniscus November 2023 I met with the patient and his , Cynthia; she does not feel comfortable having him return directly home is he still is requiring some assistance for mobility and self cares. This is confirmed by review of his PT and OT notes; I will discuss with them verbally on morning rounds tomorrow. I suspecthe will be appropriate for acute interdisciplinary rehab; I will review with the acute rehab local coordinator on morning rounds as well. The patient and his are aware of the protocol of acute rehab; he was on the [address] [place] [address] acuterehab unit in in 2001 under my care following the craniotomy and treatment of his brain abscess. Hehad an excellent outcome and they are hoping that he again qualifies. * Francisca Rizvi M.A., [facility]-SECTION REPAIRER - 03/04/2024 1:45 PM CDT Speech Language Pathology Communication/Cognitive Evaluation- Acute Care Session Type: Evaluation Length of session: 15 minutes SUBJECTIVE Referred By: [facility] Stroke and Cerebrovascular Disease History: Mr. Castro is a 83 y.o. male who was admitted to [facility] on 03/01/2024 due to a stroke.Mr. Castro's medical history is well documented in the electronic medical record, please refer to admission notes for full history. Briefly, Mr. Castro fell out of bed due to left-sided weakness on03/01/24. He hit his elbow and his head. He went to an outside hospital several hours later due to persistent symptoms. 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 Mr. Castro has not received prior Speech Pathology services. Speech Pathology consult was received for evaluation of communication. Prior Level of Functioning: Mr. Castro was previously independent with all ADLs, however required assistance with higher levelIADLs. He lives with his spouse in [place], [place]. Mr. Castro is retired; he previously worked at [employer]. Patient/Family Goal(s): Return home General Family/Caregiver Present: Yes Arousal/Alertness: Appropriate responses to stimuli Current Vision: Other (Comment) (Endorses new double vision sometimes) Behavior: Alert, Cooperative Pain Pain Assessment Pain Assessment: 0-10 Numeric Pain Intensity Scale Pain Score: 0 - No pain OBJECTIVE Objective Session Data Labial Structure and Function: Within Normal Limits (WNL) Lingual Structure and Function: Within Normal Limits (WNL) Palatal Structure and Function: Within Normal Limits (WNL) Mandible Strength and Function: Within Normal Limits (WNL) Laryngeal Function: Within Normal Limits (WNL) Motor Speech Voice: Within Normal Limits (WNL) Respiration: Within Normal Limits (WNL) Resonance (MANAGER OPERATIONS AND PROCUREMENT Function): Within Normal Limits (WNL) Articulation: Within Functional Limits (WFL) Rate and Prosody: Within Normal Limits (WNL) Intelligibility: Intelligible Auditory Comprehension Basic Questions: Within Normal Limits (WNL) One Step Basic Commands: Within Normal Limits (WNL) Conversation Comprehension: Within Normal Limits (WNL) Reading Comprehension Reading Comprehension: Within Normal Limits (WNL) Verbal Expression Primary Mode of Expression: Verbal Primary Language: Mozambican Naming: Within Normal Limits (WNL) Open Ended Questions: Within Normal Limits (WNL) Conversation: Within Normal Limits (WNL) Cognition Overall Cognitive Status: Impaired Attention: Impaired Sustained: Mild Selective: Mild Executive Functioning: Impaired Assessment Mr. Castro demonstrates speech and language skills which are within normal limits on evaluation this afternoon. Oral mechanism examination is unremarkable. There is no clear evidence of a motor speech disorder. Mr. Castro, his , and their neighbor deny any changes in speech associated with his stroke. He answers basic yes/no questions and follows simple commands without difficulty. He is 100% accurate with confrontational and receptive naming. He reads paragraph length material with good accuracy. He appears to demonstrate mild difficulty with sustained and selective attention, benefiting from occasional redirection back to task/topic. When drawing a clock, he numbers it correctly andsets the hands to the correct time, although his numbers are outside of the clock face. When I ask him why, he responds This is how I always do it. Ongoing cognitive-communication assessment to be completed next session. Goals: Cognition Short Term Goal 1 Cognition Short Term Goal 1: Patient will participate in formal cognitive- communication assessment. 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 Castro is a 83 y.o. 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 Current Nutrition (since admission): approved for regular diet. Nutrition history: Patient reports no changes to eating [employer], endorses normal appetite. Does not eatpopcorn or bread due to achalasia. Nutrition education/counseling: Introduced role of dietitian and reason for visit. OBJECTIVE Current nutrition orders: Dietary Orders (From admission, onward) Start Ordered 03/04/24 0000 No oral nutrition, no tube feeding Diet effective midnight 03/02/24 1137 03/02/24 1128 Adult Diet Regular (Adult Diet) Diet effective now Question: Diet texture: Answer: Regular 03/02/24 1127 GI Function: , , Integumentary/Wounds: Lines/Drains/Airways Wound Duration Wound 03/01/24 Elbow Posterior;Right <1 day Medications: Scheduled Meds:allopurinoL, 100 mg, oral, QAM apixaban, 2.5 mg, oral, BID atorvastatin, 40 mg, oral, Daily at bedtime cholecalciferol, 25 mcg, oral, Daily famotidine, 10 mg, oral, Every Other Day [START ON 03/03/2024] gentamicin, 1 Application, topical, Daily metoprolol tartrate, 12.5 mg, oral, BID multivitamin-dialysis, 1 tablet, oral, Daily with evening meal pantoprazole, 40 mg, oral, BID before morning and evening meals PD 2.5 % dextrose Low Ca 2.5 mEq/L- Mg 0.5 mEq/L 6,000 mL Dialysis solution, , intraperitoneal, Once sennosides-docusate sodium, 2 tablet, oral, Daily Or sennosides-docusate sodium, 2 tablet, gastric tube, Daily torsemide, 20 mg, oral, Daily Continuous Infusions: PRN Meds:. bisacodyL OR bisacodyL hydrALAZINE Anthropometrics: Height: 172.7 cm Admission Weight: 79.6 kg (03/01/2024) Current Weight: 79.6 kg Beatrice Body Weight (Calculated) : 68.4 kg BMI (Calculated): 26.7 kg/m?? Weight change since admission: 0 kg Net IO Since Admission: No IO data has been entered for this period [03/02/24 1615] Weight history: weight stable Wt Readings from Last 12 Encounters: 03/01/24 79.6 kg 10/17/23 80.5 kg 08/07/23 80.3 kg 07/11/22 71.6 kg 06/06/22 71.6 kg 03/02/22 78.5 kg 12/09/21 74.9 kg 12/07/21 79 kg 02/25/19 85.3 kg 02/14/19 87.6 kg 12/06/12 83.2 kg 10/16/12 83.1 kg Estimated Needs: Total Calorie Needs: 3534-2770 calories/day Method to Estimate Energy Needs: kcal/kg (22-25 kcal/kg) Weight Used for Equation Calculations: 79.6 kg Total Protein Needs: 80 - 96 grams/day (Method to Estimate Protein Needs (g/kg): 1 - 1.2 gm/kg) Weight Used to Calculate Protein Needs (Kg): 79.6 kg Nutrition Diagnosis: Other (comment) related to PD as evidenced by dietitian follow Nutrition Diagnosis Reassessment: Ongoing Malnutrition Assessment: ASPEN Criteria of Malnutrition: Nutritional Status: Malnutrition criteria not met Based on: Energy Intake: No Change Interpretation of Weight Loss: No Change Body Fat: Normal Muscle Mass: Normal ASSESSMENT / PLAN ASPEN Criteria Malnutrition Status: Malnutrition criteria not met Nutrition Intervention: Interventions: Provide education to increase nutrition knowledge, Provide counseling strategies to apply nutrition knowledge. Recommendations: No changes at this time; continue current nutrition orders Monitoring/Evaluation: Nutrition parameter to monitor: Meals/Supplement Intake, Fluid Balance, Ascites/Edema, Weight Status, Comparative Standards, Pertinent Labs Desired Outcome: Consume adequate nutrition orally Patient Goal(s): Maintain weight and No further weight loss Clinical Nutrition will continue to follow. For questions about patient's nutritional care please contact pager [phone] on weekdays 07:30-16:00 or [phone] on weekends/holidays ([facility]). * Deidra Rubi, O.T. - 03/02/2024 12:26 PM CDT Occupational Therapy Acute Hospital Inpatient Evaluation/Treatment SUBJECTIVE Referring/Attending Provider: Stuart Mohan M.D. Patient's Name: David Castro Reason for Referral: OT eval and treat- brain consult Medical Diagnosis: 1. Stroke (HCC) [I63.9] Onset Date: 03/01/24 Payor: [employer] / Plan: [facility] MEDICARE ADVANTAGE PPO / Product Type: PPO / PERTINENT MEDICAL / SURGICAL HISTORY: Patient Active Problem List Diagnosis Obstructive Sleep Apnea Adult Cardiomegaly Seizure Partial (HCC) Empyema Pleural (HCC) Achalasia Dialysis Peritoneal Status (HCC) Atrial Fibrillation Paroxysmal (HCC) Elevated Alkaline Phosphatase Anemia In Chronic Kidney Disease Presentation Manager (Current) Anticoagulant Treatment Hypertensive Chronic Kidney Disease With Stage 5 Chronic Kidney Disease Or End Stage Renal Disease,End Stage Renal Disease (HCC) Atelectasis Chronic Systolic (Congestive) Heart Failure (HCC) Anxiety Generalized Disorder Lymphopenia Gout Hyperparathyroidism 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 Osteopenia 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 Hematemesis Hypoalbuminemia Bundle Branch Block Left Hemorrhage Gastrointestinal Stenosis Aortic Valve Acquired Atrial Fibrillation Other Persistent (HCC) Stroke (HCC) Past Surgical History: Procedure Laterality Date APPENDECTOMY CATH ICD N/A 10/17/2023 Procedure: CLAY CLOSURE WITH IMPLANT; Surgeon: Radha Andrade M.B.BBaileySBailey; Location: [facility] OTHER CONVERTED SHX (SEE COMMENT) N/A 06/21/2002 > Esophagogastroduodenoscopy with Biopsies and Brushing OTHER CONVERTED SHX (SEE COMMENT) N/A 09/18/2002 >Esophagogastroduodenoscopy OTHER CONVERTED SHX (SEE COMMENT) N/A 06/19/2002 Right frontal craniotomy. >Resection of abscess. OTHER CONVERTED SHX (SEE COMMENT) N/A 06/25/2003 >Esophagogastroduodenoscopy with Biopsies History of Present Illness: Mr. Castro is an 83 yo R handed gentleman with PMH notable for pAF s/pWatchman 09/2023 subsequently on apixaban, ESRD on PD, hx of bleeding esophageal ulcers, HTN, ELENI. Pt admitted for workup of right medial thalamic infarct. Patient has left hemiparesis, right eye ptosis and vertical diplopia. See Hospital Admission History and Physical for full history of present illness. Precautions Other Precautions: peritoneal dialysis, right knee pain related to mensiscus injury, vertical diplopia, left eye blurriness, right eye ptosis Patient/Caregiver Goals: Go home, improve vision Patient Comments: I don't have confidence. I'm afraid I will fall because of left side weakness. (Patient fell out of bed at home the morning of his stroke due to weakness) Prior Function/Occupational Profile Dominant Hand: Right Lives With: Spouse ADL Assistance: Independent IADL/Homemaking Assistance: Required assistance IADL/Homemaking Assistance Comments: completed instrumental ADL tasks. Occupational Role: Retired Occupational Role Comments: Previously [employer] Leisure Interests: Likes to walk but has been limited by right knee pain recently. Had been walking5 miles per day. Prior Mobility/Functional Transfers Level of Mcmullen: Independent Gait Devices/Wheelchair Used: Cane Home Living Type of Home: House Home Layout: One level, Able to live on main level with bedroom/bathroom Home Access: Level entry Bathroom Shower/Tub: Walk-in shower Walk-in shower location: Main floor Bathroom Toilet: Standard Home Equipment Gait Devices Owned: Cane Bathroom Equipment: Shower chair with back, Hand-held shower head Fall Risk (65 and older) Fall in the last 12 months: No Are you fearful of falling?: No OBJECTIVE Cognition Cognitive assessment method: Therapist observations, Cognitive screening results Arousal/Alertness: Appropriate responses to stimuli Attention: Addressed, no concerns noted Initiation: No difficulty with initiation Orientation: Oriented X4 Following Commands: Follows all commands/directions without difficulty Memory Comments: Mild difficulty with delayed recall of information. Safety/Judgment: Impairments noted Safety/Judgment Comments: Patient setting off bed alarm without calling nurse before getting up. Cognition Comments: mini-BENITO completed patient scoring 27/30 Balance Static Sitting-Balance: Good (Maintains balance without support) Dynamic Sitting-Balance: Good (Maintains balance without support) Static Standing-Balance: Fair (Maintains balance with handheld/contact guard assistance) Dynamic Standing-Balance: Fair (Maintains balance with handheld/contact guard assistance) Baseline Vision/Correction: Wears glasses all the time Current Deficits Observed: Diplopia Current Vision Comments: Binocular vertical diplopia, left eye blurriness with monocular vision, right eye ptosis. ROM - Upper Extremity Screen: Addressed, no concerns noted Strength - Upper Extremity Screen: Impaired left Strength - Upper Extremity Screen Comments: 4 to 4+/5 LUE Gross Hand Function Right Hand Gross Grasp: Functional Left Hand Gross Grasp: Functional Right Hand Coordination: Functional Left Hand Coordination: Functional (mild incoordination but not limiting ADL task completion.) Current ADL / IADL Function ADL Comments: Patient has mild left upper extremity weakness and incoordination but it is not limiting completion of self-care tasks. UE Dressing UE Dressing Delivery: Assessed UE Dressing Items Included: government professor shirt UE Dressing Level of Assistance: Supervision/Set-up UE Dressing Location: Seated on edge of bed LE Dressing LE Dressing Location: Seated on edge of bed LE Dressing Delivery: Assessed LE Dressing Items Included: Socks, Pants, Underwear/Adult incontinence briefs LE Dressing Level of Assistance: Minimal assistance LE Dressing Comments: Assist for standing balance when pulling up pants to hips. Bed Mobility - Supine to Sit # of Assistants: 1 Level of Assistance: Independent Bed Mobility - Sit to Supine # of Assistants: 1 Level of Assistance: Independent Sit to Stand Transfers # of Assistants: 1 Transfer Surface: Bed Transfer Equipment: Gait belt, Front wheeled walker Level of Assistance: Contact guard assistance Assessment/Delivery: Assessed, Therapist assisted, Facilitated Stand to Sit Transfers # of Assistants: 1 Transfer Surface: Bed Transfer Equipment: Gait belt, Front wheeled walker Level of Assistance: Contact guard assistance Assessment/Delivery: Assessed, Therapist assisted, Facilitated Mini-Addenbrooke's Cognitive Examination The Mini-Addenbrooke's Cognitive Examination (M-BENITO) is a cognitive screening tool that is a shortened version of the Addenbrook's Cognitive Examination (BENITO- III). It is a screening tool sensitive todetect the early stages of dementia or mild cognitive impairment. The M-BENITO assesses orientation, memory, animal fluency and clock drawing with a maximum score of 30. The M-BENITO produces two cut-offs scores: a score between 21-25 represents possible mild cognitive impairment, and a score below 21 represents the possibility of dementia and the need for further assessment. M-BENITO Ghanaian Version A Score: 27/30 Domain scores: Attention: 4/4 Memory: 14 Fluency: 6/7 Visuospatial: 5/5 At the end of today's therapy session patient was left in bed with the bed alarm on with an appropriate call light within reach. Patient's needs and questions addressed during today's session. Assessment The patient demonstrates mild left upper extremity weakness and incoordination but it is not currently limiting patient's ability to complete self-care tasks. The patient reports a lack of confidencewith walking due to left side weakness and is fearful of falling. The patient requires contact guard assistance and use of front wheeled walker for transfers. The patient reports vertical diplopia with distance vision. When looking out of his left eye the patient reports blurriness. The patient hasright eye ptosis but vision is clear when looking out of his right eye. The patient's left glasses lens was taped and the patient reported that his diplopia was resolved when looking at the tv and the clock on the wall. The patient was able to read writing on the tv and correctly tell the time. Thepatient completed a cognitive screening scoring 27/30, missing 2 points for delayed recall and 1 point for fluency. The patient's score is within normal limits. Will continue with skilled OT to maximize safety and independence with self-care tasks and address diplopia. Anticipate discharge to home with 's supervision and assistance. Rehab Potential: Mr. Castro has good potential to achieve established occupational therapy goals within the time frame outlined below. 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 The location of these services is determined by the patient's care team in partnership with patient/family. Functional Goals and Timeframe's: OT Goal #1: Patient will be independent with home exercise program for diplopia. OT Goal #1 Status: Progressing OT Goal #2: Patient will demonstrate understanding of how to tape glasses for diplopia. OT Goal #2 Status: Progressing OT Goal #3: The patient will be independent with toileting and toilet transfers. OT Goal #3 Status: Progressing OT Goal #4: The patient will be independent with dressing. OT Goal #4 Status: Progressing Plan Patient agrees with the plan of care and goals. Treatment Plan: OT Frequency: 5 times per week OT Inpatient Duration : Until goals are met or hospital discharge Plan: Plan of care initiated Treatment interventions may include: Treatment Interventions: Therapeutic exercise, Therapeutic functional activity, Neuromuscular re-education, Self-care/home management Occupational Profile and History review: Expanded Performance Deficits: at least 5 performance deficits Evaluation Complexity: Moderate Time Spent with Patient Evaluations OT Eval - Mod Complexity: 15 min Therapeutic Interventions Home Management Training (min): 23 min Time Tracking Total Timed Units (min): 23 min Total Treatment Time (min): 38 min Deidra Rubi O.T. * Keturah Meek P.T. - 03/02/2024 10:52 AM CDT Physical Therapy Acute Hospital Inpatient Evaluation/Treatment By co-signing this note, the provider certifies the therapy being provided to this patient is reasonable and necessary for the diagnosis or treatment of this patient. SUBJECTIVE Referring/Attending Provider: Stuart Mohan M.D. Patient's Name: David Castro Reason for Referral: PT eval and treat- brain consult Medical Diagnosis: No diagnosis found. Onset Date: 03/01/24 Payor: [facility] / Plan: [facility] MEDICARE ADVANTAGE PPO / Product Type: PPO / PERTINENT MEDICAL / SURGICAL HISTORY: Patient Active Problem List Diagnosis Obstructive Sleep Apnea Adult Cardiomegaly Seizure Partial (HCC) Empyema Pleural (HCC) Achalasia Dialysis Peritoneal Status (HCC) Atrial Fibrillation Paroxysmal (HCC) Elevated Alkaline Phosphatase Anemia In Chronic Kidney Disease Presentation Manager (Current) Anticoagulant Treatment Hypertensive Chronic Kidney Disease With Stage 5 Chronic Kidney Disease Or End Stage Renal Disease,End Stage Renal Disease (HCC) Atelectasis Chronic Systolic (Congestive) Heart Failure (HCC) Anxiety Generalized Disorder Lymphopenia Gout Hyperparathyroidism 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 Osteopenia 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 Hematemesis Hypoalbuminemia Bundle Branch Block Left Hemorrhage Gastrointestinal Stenosis Aortic Valve Acquired Atrial Fibrillation Other Persistent (HCC) Stroke (HCC) Past Surgical History: Procedure Laterality Date APPENDECTOMY CATH ICD N/A 10/17/2023 Procedure: CLAY CLOSURE WITH IMPLANT; Surgeon: Radha Andrade M.B.B.S.; Location: [facility] OTHER CONVERTED SHX (SEE COMMENT) N/A 06/21/2002 > Esophagogastroduodenoscopy with Biopsies and Brushing OTHER CONVERTED SHX (SEE COMMENT) N/A 09/18/2002 >Esophagogastroduodenoscopy OTHER CONVERTED SHX (SEE COMMENT) N/A 06/19/2002 Right frontal craniotomy. >Resection of abscess. OTHER CONVERTED SHX (SEE COMMENT) N/A 06/25/2003 >Esophagogastroduodenoscopy with Biopsies History of Present Illness: Mr. Castro is an 83 yo R handed gentleman with PMH notable for pAF s/pWatchman 09/2023 subsequently on apixaban, ESRD on PD, hx of bleeding esophageal ulcers, HTN, ELENI. Pt admitted for workup of R thalamic infarct. See Hospital Admission History and Physical for full history of present illness. Precautions Other Precautions: peritoneal dialysis, right knee pain related to mensiscus injury, visual impairment Patient/Caregiver Goals: Go home, improve vision Patient Comments: My left side isn't working too good. Patient was agreeable to PT. Prior Function/Occupational Profile Dominant Hand: Right Lives With: Spouse ADL Assistance: Independent IADL/Homemaking Assistance: Independent Occupational Role: Retired Occupational Role Comments: Previously [employer] Leisure Interests: Likes to walk but has been limited by right knee pain recently. Had been walking5 miles per day. Prior Mobility/Functional Transfers Level of [place]: Independent Gait Devices/Wheelchair Used: Cane Home Living Type of Home: House Home Layout: One level, Able to live on main level with bedroom/bathroom Home Access: Level entry Bathroom Shower/Tub: Walk-in shower Walk-in shower location: Main floor Bathroom Toilet: Standard Home Equipment Gait Devices Owned: Cane Bathroom Equipment: Shower chair with back, Hand-held shower head Fall Risk (65 and older) Fall in the last 12 months: No Are you fearful of falling?: No OBJECTIVE Pain: patient report right lateral knee pain. He was in the process of seeking treatment for the right knee. Was going to possibly have surgery for the right knee. Cognition Arousal/Alertness: Appropriate responses to stimuli Attention: Addressed, no concerns noted Initiation: No difficulty with initiation Orientation: Oriented X4 Following Commands: Follows all commands/directions without difficulty Safety/Judgment: Addressed, no concerns noted Activity Tolerance Endurance: Endurance does not limit participation in activity Current Hearing Function: Hearing intact Baseline Vision/Correction: Wears glasses all the time Vision Assessment Comments: Patient describes having visual changes. He seems 2 images that move. When ambulating describes he sees better when looking out into the distance. Please see OT eval for further visual testing. Light Touch: No deficits Proprioception: No deficits Coordination Overall Coordination: Movements are fluid and coordinated ROM - Lower Extremity Screen: Addressed, no concerns noted Strength - Lower Extremity Screen: Impaired left Strength - Lower Extremity Screen Comments: Antigravity strenght with moderate resistance throughout. Mildly impaired strength left LE compared to right LE. Static Sitting-Balance: Good (Maintains balance without support) Dynamic Sitting-Balance: Good (Maintains balance without support) Static Standing-Balance: Fair (Maintains balance with handheld/contact guard assistance) Dynamic Standing-Balance: Fair (Maintains balance with handheld/contact guard assistance) Balance Comments: Stable with standing eyes closed. Contact guard assistance with horizontal and verticle head turns and turning 360. Bed Mobility - Supine to Sit Level of Assistance: Independent Bed Mobility - Sit to Supine Level of Assistance: Independent Sit to Stand Transfers # of Assistants: 1 Transfer Surface: Bed Transfer Equipment: Gait belt Level of Assistance: Contact guard assistance, Minimal assistance Assessment/Delivery: Assessed, Therapist assisted, Facilitated Stand to Sit Transfers # of Assistants: 1 Transfer Surface: Bed Transfer Equipment: Gait belt Level of Assistance: Contact guard assistance, Minimal assistance Assessment/Delivery: Assessed, Therapist assisted Gait Assessment/Training Distance (m): 75 m Surface: Even, Smooth/hard Device: Gait belt, No device # of Assistants: 1 Level of Assistance: Contact guard assistance, Minimal assistance Assessment of Gait: Patient ambulates with mild instability requiring contact guard/min A without an assistive device. Cueing Provided: Verbal, Tactile Training/Intervention: Steading assistance. Comparison of targeting vision in the distance vs looking at the floor slightly ahead of him. Patient reports his vision seems more clear when looking intothe distance. Response: Tolerated well. Frustrated that his balance was not at his baseline. -[facility] BASIC MOBILITY SHORT FORM: 1. Turning from your back to your side while in a flat bed without using bedrails?: None 2. Moving from lying on your back to sitting on the side of a flat bed without using bedrails?: None 3. Moving to and from a bed to a chair (including a wheelchair)?: A Little 4. Standing up from a chair using your arms (e.g., wheelchair, or bedside chair)?: A Little 5. To walk in hospital room?: A Little 6. Climbing 3-5 steps with a railing?: A Lot AM-PAC Basic Mobility (V.2) Raw Score: 19 -PAC Basic Mobility (V.2) Standardized Score: 42.48 Interpretation: 17.9 Average score of those going home with home health Patient/Family Education: Role of PT in the hospital. Role of vision and how it effects balance. At the end of today's therapy session patient was left in bed with an appropriate call light withinreach. Patient's needs and questions addressed during today's session. Assessment Mr. Castro is an 83 year old gentleman admitted for right thalamic infarct. He presents with very mild left sided LE weakness and visual impairments which are impacting his balance and subsequently safety and independence with mobility. He is ambulating without an assistive device with contact guard/min A. He is most bothered by his visual changes. He lives with his in a 1 level home, no sta irs to enter. PT will continue to assess and address his balance/gait deficits so that he may go home safely whenmedically ready. Rehab Potential: Mr. Castro has Excellent potential to achieve established physical therapy goals within the time frame outlined below. Barriers to a safe discharge home: Barriers to Discharge Home: Current functional status, Fall risk Comorbid Conditions: Cardiopulmonary disease, Renal disease, Other (Comment) ([place]) Skilled therapy can include physical therapy provided by home health, outpatient clinic, or a post-acute facility. The location of these services is determined by the patient's care team in partnership with patient/family. Equipment Recommended - PT: Other (Comment) (To be determined) Functional Goals and Timeframes: PT Goal #1: Patient will transfer with least restrictive assistive device with supervision to promote a safe dc home. PT Goal #1 Date: 03/08/24 PT Goal #2: Patient will ambulate with least restrictive assistive device with supervision to promote a safe dc home. PT Goal #2 Date: 03/08/24 PT Goal #3: Patient will negotiate a flight of stairs with railing with close stand by assistance to promote a safe dc home. Plan Patient agrees with the plan of care and goals. Treatment Plan: PT Frequency: 6 times per week PT Amount: 1 visit per day PT Inpatient Duration : Until goals are met or hospital discharge Plan: Plan of care initiated PT Plan Comments: progressive therapeutic functional mobility training, balance/gait training, stair training, neuromuscular re-education, patient and family education Treatment interventions may include: Treatment/Interventions: Therapeutic exercise, Therapeutic functional activity, Neuromuscular re-education, Gait training Clinical Presentation: Stable Number of Examination elements: 4+ Clinical Decision Making: Moderate complexity clinical decision making Time Spent with Patient Evaluations PT Eval - Mod Complexity: 15 min Therapeutic Interventions Therapeutic Activity (min): 15 min Time Tracking Total Timed Units (min): 15 min Total Treatment Time (min): 30 min Keturah Meek P.T. * Charity Naranjo, R.N. - 03/02/2024 10:45 AM CDTAssociated Order(s): IP CONSULT TO CARE MANAGEMENT; IP CONSULT TO CARE MANAGEMENT Discharge Planning Assessment SUBJECTIVE Assessment Information Referral Source: Early Screen for Discharge Planning Referral Reason: Discharge Planning Primary Language: [place]ican Lamp Inspector Services Used: No Person(s) present during interview: Person(s) Present During Interview: patient History of Present Illness #1 Stroke (HCC) Social History Marital Status: Finance/Insurance Primary insurance: [facility] MEDICARE ADVANTAGE PPO Secondary insurance: FOR LIFE benefits: No Advance Directives Legal Decision Maker: Self Advance Directives Status: Not Activated OBJECTIVE Baseline Functional Status Baseline Activities of Daily Living Mobility: Independent Dressing: Independent Feeding: Independent Bathing: Independent Grooming: Independent Toileting: Independent Behavior: Appropriate, Pleasant, Calm, Cooperative, Oriented Communication: Can write, Talks, Understands speaking, Understands [place], Reads Shopping: Needs assistance Medication Management: Independent Housekeeping: Needs assistance Meal Prep: Needs assistance Assistive Devices: BiPAP/CPAP/VPAP, Eyeglasses, Other (Comment) (peritoneal dialysis) Transportation: Support from family Managing Finances: Independent Baseline Services/Resources Primary care clinic and provider: ELSEWHERE, PCP Additional Resources: n/a Anticipated Needs Functional Status: None Assistive Devices: None Anticipated Modifications to the Patient's Home: None Transportation Needs: Support from family Does the patient need discharge transport arranged?: No Anticipated Discharge Destination: Home or Self Care ASSESSMENT / PLAN Assessment: The americanization teacher met with David Castro to discuss his current hospitalization and home going needs. The patient was accompanied by his . The patient was a reliable historian. The role of americanization teacher was reviewed. The patient reviewed his prior level of care and support system. The patient receives support from his . The patient described his living environment as a single level home with level entry. Housekeeping,grocery shopping, meal prep, and other household responsibilities have previously been completed bypatient and his . americanization teacher discussed the patient's potential needs at dismissal based ontheir home setting, previous needs and responsibilities, homebound status, and relevant assessmentswith the patient. The patient will be safe and supported to return home with spouse/S.O. when medically ready. Support will be provided by his . The patient demonstrated understanding when discussing his home going plans and anticipated needs. At this time, the care team has not identified any skilled post-hospital discharge care needs that require the assistance of the Care Management Team. After reviewing the patient's chart and meeting with the patient, the americanization teacher deemed the LACE+/readmission questions were not necessary. The patient reports understanding that he will dismiss from the hospital when medically stable. Pending hospital course and medical readiness, no barriers to dismissal have been identified at this time. The patient was assessed for readiness, willingness, and ability to engage in self-management activities. The patient has the following social supports available to them: spouse The family was also assessed for readiness, willingness, and ability to provide or support self-management activities including skills, capacities, and resources needed. What care/support can you provide to the patient if needed? ADL/IADL needs Are there any barriers you have to providing this care if needed or any concerns you have regardingthis? no Do you anticipate needing any additional support? no Do you have financial concerns? (i.e. time away from work) no Do you have resources for transportation for follow up appointments? yes The following barriers were identified: none. Patient and family are in agreement with recommended lifestyle changes. Patient's current formal and informal support systems were assessed. Assessment with the Patient and Family has identified thatthe following services may be needed: Non-skilled care resources. Other than those services/resources listed previously no additional services are needed at this time. A folder of applicable stroke/TBI resources was given to the Patient and Family by the Tooling Supervisor. Patient and Family were receptive to the information provided and will review and contact CM/SW if they have additional questions The folder of resources includes: Recovering From a Stroke ([id number]), Stroke Website Resources (WL1393-45), Stroke Self-Care Plan (PY6752-80), General Local Resources for Patients with Stroke (OO5893-63), Emotional Response to Stroke (OP2059) and Brain Injury [place] pamphlet. Plan: The patient and patient's agrees with the following plan. Patient's anticipated discharge disposition is: Home to Self Care Transportation upon dismissal will be provided by family-- . americanization teacher recommended nothing at this time. americanization teacher provided information regarding the dismissal process. americanization teacher placed or requested the following hospital-based consult orders and/or referrals: None. americanization teacher will continue to assess for homegoing needs with the interdisciplinary team. americanization teacher encouraged the patient to reach out with any questions/concerns. Signed by: Charity Naranjo R.N. 03/02/2024 * Anika Lara APRN, C.N.P., M.S.N. - 03/02/2024 6:43 AM CDTAssociated Order(s): Nephrology consult (hospital) NEPHROLOGY CONSULT SERVICE - CONSULT NOTE Hospital Day 1 Nephrology consult ([facility]) Referring Provider: Renae Manzanares M.D. Reason for Consult: PD Management SUBJECTIVE CHIEF COMPLAINT Left-sided weakness and facial droop Right medial thalamus infarct HISTORY OF PRESENT ILLNESS Mr. Castro is a 83 y.o. male who presented to outside ED with left-sided weakness and facial droop. MRI showed right medial thalamic infarct. He was transferred to [facility] for further workup and evaluation. 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 In the outpatient setting he completes home peritoneal dialysis 6 nights weekly using the followinghemodialysis prescription: Outpatient dialysis Rx: CCPD 6 hours; 3 exchanges; 1.5 L fill volume; 2.5% glucose. No day dwell. Mr. Castro reports his PD was completed overnight. He reports peritoneal dialysis goes well. He reports he lives with his , although is independent with CCPD. He reports his estimated dry weight is 80 kg. He notes he typically has a net ultrafiltration of 600-700 mL per night. He doesreport his PD catheter can be positional with drains and he often is required to reposition himselfto assist with draining. Mr. Castro reports using 0.1% gentamicin cream daily at catheter exit site. He does report he continues to make good amounts daily urine. He notes he has regular to soft bowel movements every day and has no concerns for constipation. Today, he denies dyspnea, chest pain, nausea or vomiting. I discussed we will plan to continue CCPDtonight per his home prescription. He is in agreement with plan and denies questions for nephrology. I have reviewed and updated the following: allergies, current medications, and medical history OBJECTIVE Admission weight: 79.6 kg Weights for the past 120 hrs (Last 3 readings): Weight 03/01/24 2336 79.6 kg VITAL SIGNS Temperature: [36.2 ??C-36.3 ??C] 36.2 ??C Resp Rate: [14-75] 15 Blood Pressure: (112-131)/(63-73) 112/72 SpO2: [97 %-99 %] 99 % Pulse Rate: [68-77] 68 PHYSICAL EXAMINATION General: Awake and alert, sitting on edge of bed, appears in no acute distress Heart: Regular rate and rhythm Lungs: Lung sounds clear to auscultation bilateral posterior lung ramirez, nonlabored breathing, continues on room air Extremities: No pitting edema bilateral lower extremities Abdomen: RLQ PD catheter, capped. Scant drainage at catheter exit site, no erythema; exit site covered with gauze and tape. Nontender to palpation. DIAGNOSTICS Recent Labs 03/02/24 0537 03/01/24 2211 HGB 11.2 L 11.3 L WBC 4.7 5.3 PLT 151 142 Recent Labs 03/02/24 0537 03/01/241 12/01/23 1357 NA 142 143 143 KSERUM 4.1 4.1 3.5 BUN 43 H 42 H 45 H CREATININE 4.47 H 4.67 H 4.05 H Results from last 7 days Lab Units 03/02/24 0537 03/01/24 2211 CALCIUM mg/dL 8.6* 8.5* ALBUMIN g/dL -- 3.4* No results for input(s): CYSTATINC, EGFRCYSTATNC in the last 2190 hours. 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 Castro will undergo CCPD tonight for 6 hours, 3 exchanges using 1.5 L fill volume of 2.5% dextrose Dianeal. No day dwell. Nephrology will continue to follow. As part of required dialysis monitoring, we will check a hepatitis B panel today to assess for hepatitis B status and/or immunity. I have discussed dialysis, the major risks of dialysis and the alternatives to dialysis, including the option to decline dialysis, and the dialysis treatment team with the patient and have answered all of the patient's questions. Recommendations: -- CCPD tonight (see above) -- Renal function panel with am labs Monday -- Gentamicin 0.1% cream daily to catheter exit site following site care with soap and water -- Hepatitis B antigen and antibody panel (nephrology already ordered) Standard Recommendations -- Document strict intake and output -- Renal dialysis diet with 1.5 L/day fluid restriction -- Renally dose-adjust all medications for ESRD -- Cholecalciferol 25 mcg orally daily Dismissal Planning: -- Please keep nephrology up to date on dismissal planning to ensure home peritoneal dialysis is arranged appropriately prior to hospital dismissal. Mr. Castro's case has been staffed with Dr. Latrell Gardner, Nephrology chain sales consultant. For questions or concerns, please contact the Nephrology B service at [phone]. documented in this encounter Nursing Notes * Viki Mercer M.S.N., R.N. - 03/05/2024 5:15 PM CDT Problem: PAIN - ADULT Goal: PT VERBALIZES/DEMONSTRATES ADEQUATE COMFORT LEVEL OR BASELINE Description: STANDARD INTERVENTIONS: 1. Encourage patient to monitor pain and request intervention as needed 2. Assess pain using appropriate pain scale 3. Administer and transition analgesics based on type and severity of pain and evaluate response 4. Implement non-pharmacological measures as appropriate and evaluate response 5. Consider cultural and social influences on pain and pain management 6. Notify provider if interventions unsuccessful or patient reports new pain 7. Spiritual Care/Care Management support as indicated 8. Involve patients in the pain management treatment planning process, if able, by developing realistic and understandable expectations and measurable goals 9. Encourage ongoing discussions regarding effect of pain on daily activities PATIENT SPECIFIC INTERVENTIONS: Outcome: Progressing Problem: KNOWLEDGE DEFICIT Goal: Patient/family/caregiver demonstrates understanding of disease process, treatment plan, medications, and discharge instructions Description: STANDARD INTERVENTIONS: 1. Complete learning assessment and assess knowledge base 2. Provide teaching at level of understanding as appropriate for development 3. Provide teaching via preferred learning methods 4. Provide teaching via prefered method validated by teach back method PATIENT SPECIFIC INTERVENTIONS: Outcome: Progressing Problem: INFECTION - ADULT Goal: Absence of infection during hospitalization Description: STANDARD INTERVENTIONS: 1. Assess and monitor for signs and symptoms of infection 2. Monitor lab/diagnostic results 3. Monitor all sites (i.e., indwelling lines, tubes, wounds, surgical sites and drains). 4. [place] appropriate cooling/warming therapies per order 5. Administer medications as ordered 6. Instruct and encourage patient and family/visitor to use good hand hygiene technique 7. Identify and instruct in appropriate isolation precautions for identified infection/condition PATIENT SPECIFIC INTERVENTIONS: Outcome: Progressing Problem: SKIN/TISSUE INTEGRITY Goal: Skin/Tissue integrity maintained or improved Description: STANDARD INTERVENTIONS: 1. Complete pressure injury risk assessment 2. Assess and document skin integrity 3. Monitor for areas of redness and/or skin breakdown 4. Implement and instruct on skin hygiene 5. Reposition medical devices (e.g. ECG electrodes, compression devices and tubing, respiratory devices) PATIENT SPECIFIC INTERVENTIONS: STANDARD INTERVENTIONS 1. Complete pressure injury risk assessment 2. Assess and document skin integrity 3. Monitor for areas of redness and/or skin breakdown 4. Implement preventative oral hygiene regimen 5. Reposition medical devices (e.g., ECG electrodes, Compression devices, Tubing and Respiratory devices) PATIENT SPECIFIC INTERVENTIONS: Outcome: Progressing Goal: Oral and Nasal mucous membranes remain intact Description: STANDARD INTERVENTIONS 1. Assess oral mucosa and hygiene practices 2. Implement preventative oral hygiene regimen 3. Implement oral medicated treatments as ordered 4. Reposition medical devices (e.g. respiratory devices, NG/OG tubes) 5. Complete oral risk assessment guide as appropriate PATIENT SPECIFIC INTERVENTIONS: Outcome: Progressing Problem: SAFETY ADULT Goal: Maintain a safe environment Description: STANDARD INTERVENTION 1. Complete fall/injury risk assessments. 2. Perform intentional rounding. 3. Identify cognitive and physical deficits and behaviors that affect risk of falls. 4. [place] fall precautions as indicated by assessment. 5. Educate patient/family on patient safety, including physical,developmental and cognitive limitations. 6. Instruct patient/family to call for assistance with activity based on assessment. 7. Modify environment and orient patient to environment to reduce risk of injury. 8. Educate patient/family on facilities safety and security practices (e.g.hugs/safety bands present). 9. [place] video monitoring as indicated by assessment and order. PATIENT SPECIFIC INTERVENTIONS: Outcome: Progressing Problem: DISCHARGE PLANNING Goal: Patient discharge needs identified Description: STANDARD INTERVENTIONS: 1. Complete early screening for discharge 2. Identify discharge learning needs (meds, wound care, etc). 3. Arrange for needed discharge resources and transportation as appropriate 4. Participate in multidisciplinary discharge rounding as appropriate 5. Provide discharge instructions (After Visit Summary) 6. Collaborate with Care Management/Social Work to coordinate discharge planning if indicated PATIENT SPECIFIC INTERVENTIONS: Outcome: Progressing Problem: SAFETY ADULT - RISK FOR FALL AND OR FALL INJURY Goal: Patient remains free from fall/fall injury Description: STANDARD INTERVENTION 1. Apply visual alert (yellow arm band) and/or other risk identifiers. 2. Use non-skid footwear. 3. Intentional rounding 4. Assist with ambulation/toileting/transfer. 5. Use safe patient handling equipment with ambulation/transfer. 6. Instruct patient/family to call for assistance with activity based on assessment. 7. Educate patient/family on fall risk and fall risk factors using teach back (video and pamphlet) 8. Bed height at 90 degree angle from knee crease during transfers. 9. Modify environment to reduce patient specific risk of injury and orient patient to environment. PATIENT SPECIFIC INTERVENTIONS: Outcome: Progressing Problem: POTENTIAL OR ACTUAL PRESSURE INJURY-ADULT Goal: Manage sensory Perception deficits to maintain and/or improve skin integrity Description: STANDARD INTERVENTION: 1. Turn or Micro-turn to offload pressure as appropriate while in bed and reposition at least Q1H while in chair for pressure relief. Encourage patient to self-reposition as able. 2. Elevate heels off all surfaces as appropriate. 3. Maintain HOB less than 30 degrees unless medically contraindicated (e.g. ventilated, aspiration precautions). PATIENT SPECIFIC INTERVENTIONS: Outcome: Progressing Goal: Maintain optimal skin moisture to ensure or improve skin integrity Description: STANDARD INTERVENTION: 1. Absorbent soft silicone foam dressing may be applied for moisture control to sacral area (Not appropriate with frequent stool incontinence) 2. If incontinent, provide prompt pericare with an incontinence cleanser & apply a barrier product if applicable; do not rub skin 3. Consider a fecal management system if appropriate 4. Assess the need for cushions PATIENT SPECIFIC INTERVENTIONS: Outcome: Progressing Goal: Achieve optimal activity and/or mobility to maintain or improve skin integrity Description: STANDARD INTERVENTION: 1. Turn or Micro-turn to offload pressure as appropriate while in bed and reposition at least Q1H while in chair for pressure relief. Encourage patient to self-reposition as able. 2. Use transfer devices to decrease friction/shearing with surfaces as appropriate 3. Elevate heels off all surfaces as appropriate 4. Maintain HOB less than 30 degrees unless medically contraindicated ( e.g. ventilated, aspirationprecautions) PATIENT SPECIFIC INTERVENTIONS: Outcome: Progressing Goal: Nutrient intake appropriate for improving, restoring or maintaining skin integrity Description: STANDARD INTERVENTION: 1. Consider a dietitian consult to optimize nutrition. 2. Monitor nutritional intake. 3. Provide high protein nutritional supplement and or correct nutritional deficiencies PATIENT SPECIFIC INTERVENTIONS: Outcome: Progressing Goal: Minimize friction and/or shear to maintain or improve skin integrity Description: STANDARD INTERVENTION: 1. Maintain HOB less than 30 degrees unless medically contraindicated (e.g.: ventilated, aspirationprecautions). 2. Use transfer devices to decrease friction/shearing with surfaces as appropriate 3. Absorbent soft silicone foam dressing may be applied to minimize friction/shear. (Not appropriate with frequent stool incontinence) 4. Consider applying protective dressings on the face, bridge of nose, or ears to protect from respiratory devices PATIENT SPECIFIC INTERVENTIONS: Outcome: Progressing Problem: Compromised Skin Integrity Goal: Skin/Tissue integrity maintained or improved Description: STANDARD INTERVENTIONS: 1. Complete pressure injury risk assessment 2. Assess and document skin integrity 3. Monitor for areas of redness and/or skin breakdown 4. Implement and instruct on skin hygiene 5. Reposition medical devices (e.g. ECG electrodes, compression devices and tubing, respiratory devices) PATIENT SPECIFIC INTERVENTIONS: STANDARD INTERVENTIONS 1. Complete pressure injury risk assessment 2. Assess and document skin integrity 3. Monitor for areas of redness and/or skin breakdown 4. Implement preventative oral hygiene regimen 5. Reposition medical devices (e.g., ECG electrodes, Compression devices, Tubing and Respiratory devices) PATIENT SPECIFIC INTERVENTIONS: Outcome: Progressing Goal: Oral and Nasal mucous membranes remain intact Description: STANDARD INTERVENTIONS 1. Assess oral mucosa and hygiene practices 2. Implement preventative oral hygiene regimen 3. Implement oral medicated treatments as ordered 4. Reposition medical devices (e.g. respiratory devices, NG/OG tubes) 5. Complete oral risk assessment guide as appropriate PATIENT SPECIFIC INTERVENTIONS: Outcome: Progressing Goal: Incisions, wounds, or drain sites healing without S/S of infection Description: STANDARD INTERVENTIONS 1. Monitor signs and symptoms of infection 2. Assess for adequate nutrition 3. Assess need for and utilization of medical devices such as binders, immobilizers, cushions, wound vac etc 4. Assess and document dressing and/or incision, wound bed, drain sites and surrounding tissue 5. Implement wound care per orders 6. Initiate isolation precautions as appropriate 7. Administer ordered medication as needed 8. Consult Wound Care if needed PATIENT SPECIFIC INTERVENTIONS: Outcome: Progressing Problem: Incontinence and/or Moisture Goal: Skin integrity is maintained or improved Description: STANDARD INTERVENTION: 1. Assess perineal skin and skin folds 2. Collaborate with interdisciplinary team including RN, building specialist as needed 3. Keep skin clean and dry 4. Consider incontinence containment device 5. If incontinent, provide prompt pericare with an incontinence cleanser and apply a barrier product if applicable; do not rub skin 6. Develop skin care regimen 7. Use moisture wicking incontinence pads while in bed. Briefs to be used when out of bed PATIENT SPECIFIC INTERVENTIONS: Outcome: Progressing * Dayanara Flanagan R.N. - 03/03/2024 5:37 PM CDT Shift Goals: Pt will walk in the hallway with assistance. Identify possible barriers to meeting goals/advancing plan of care: none End of Shift Summary: Goal met. Problem: PAIN - ADULT Goal: PT VERBALIZES/DEMONSTRATES ADEQUATE COMFORT LEVEL OR BASELINE Outcome: Progressing Problem: SAFETY ADULT Goal: Maintain a safe environment Outcome: Progressing Problem: SAFETY ADULT - RISK FOR FALL AND OR FALL INJURY Goal: Patient remains free from fall/fall injury Outcome: Progressing * Soham High RNicholas - 03/02/2024 6:20 PM CDT Shift Goals: Patient will remain safe. Identify possible barriers to meeting goals/advancing plan of care: weakness End of Shift Summary: Patient used his walker and remained safe when out of bed. He remains neurologically stable. documented in this encounter Miscellaneous Notes * Hospital Course - Abimael Mathias M.B.B.S. 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 David Castro is a 83 y.o. 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 Hospital Course The patient is presenting with a right medial thalamic infarct that correlate to his mild left sided symptoms which have already shown interval improvement. 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 While the right CN 3 nucleus does not show diffusion restriction it lies immediately caudally to the infarct it was likely involved either by direct ischemia or secondary edema/mass effect. The etiology of the stroke is either small-vessel disease or atheroembolic. A cardioembolic source and Watchman complication was ruled out on FREDDIE 03/05. 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 Another potential etiology could be small vessel disease particularly given extensive leukoaraiosis bilaterally. Given the complex ulcerated aortic arch atheroma we discontinued apixaban and started DAPT for 90 days witha plan to then transition to clopidogrel monotherapy long-term. [id number] pending. We have started atorvastatin 40 mg aiming for long-term LDL under 55-70; his blood pressure is within goal. He is now medically fit for discharge; he will pursue outpatient PT/OT ideally in the [facility]. A walker was prescribed on discharge. Perionteal dialysis was continued during admission. Noncontrast CT of the thorax incidentally identified asymptomatic infectious/inflammatory groundglass opacities in the right lung, bilateral small pleural effusions, and small volume ascites. We re-initiated home torsemide and monitored for signs of pneumonia. CT also identified right-sided pleural thickening with small loculated effusion and a new indeterminate right middle lobe nodule measuring3 mm. He has a history of complicated parapneumonic effusion in November 2021 which required drainage with a pigtail catheter and left upper lobe infiltrates seen on CT chest December 2021. Pulmonary medicine was curbsided. Given stability of loculated right pleural effusion, this does not need follow up. They would recommend 1 year follow up for 3 mm pulmonary nodule. Otherwise for pulmonary fibrotic changes can consider outpatient CT chest follow up by PCP. Disposition Patient was discharged home on in stable condition. documented in this encounter Plan of Treatment Scheduled Orders Name Type Priority Associated Diagnoses Order Schedule Incentive Spirometry - RT/RN Respiratory Care Routine [id number] (Omit [id number]) until discontinued starting 03/01/2024 Adult Oxygen Therapy PRN Respiratory Care Routine As needed until discontinued starting 03/01/2024 Basic Metabolic Panel Lab Routine Alise ly for 3 Days starting 03/06/2024 until 03/08/2024, 1 completed CBC without Differential Lab Routine Daily for 3 Days starting 03/06/2024 until 03/08/2024, 1 completed Cytochrome P450 2C19 Genotype Lab Add-On Lab check for available specimen and run test if available for 1 Occurrences starting 03/06/2024 until 03/06/2024 Continuous Cycling Peritoneal Dialysis (CCPD) 03/06/2024 Dialysis Routine Once for 1 Occurrences starting 03/06/2024 until 03/06/2024 Phosphorus Inorganic Lab Routine AM c ollection: 0405 (default) for 1 Occurrences starting 03/07/2024 until 03/07/2024 Magnesium Lab Routine AM collection: 0405 (default) for 1 Occurrences starting 03/07/2024 until 03/07/2024 documented as of this encounter Procedures The patient is currently admitted. The [...] DIALYSIS (CCPD) Routine 03/04/2024 1:01 PM CDT (FREDDIE) 2D WITH COLOR AND DOPPLER Routine 03/04/2024 [...] DIALYSIS (CCPD) Routine 03/02/2024 9:42 AM CDT CBC WITH DIFFERENTIAL, B Routine 03/02/2024 5:37 AM CDT BASIC METABOLIC PANEL, S/P Routine 03/02/2024 5:37 AM CDT HBS ANTIBODY, SERUM Routine 03/02/2024 5 :34 AM CDT HEPATITIS B SURFACE ANTIGEN Routine 03/02/2024 5:34 AM CDT ECG Routine 03/02/2024 1:[address] CHEST WITHOUT IV CONTRAST RAD - Routine (most inpatients and all outpatients) 03/02/2024 12:24 AM CDT LIPID PANEL, S Timed 03/01/2024 10:11 PM CDT CBC WITH DIFFERENTIAL, B Timed 03/01/2024 10:11 PM CDT THYROID-STIMULATING HORMONE-SENSITIVE (S-TSH) Timed 03/01/2024 10:11 PM CDT HEMOGLOBIN A1C, B Timed 03/01/2024 10: 11 PM CDT COMPREHENSIVE METABOLIC PANEL, S/P Timed 03/01/2024 10:11 PM CDT documented in this encounter Results * (ABNORMAL) CBC without Differential (03/06/2024 10:40 AM CDT) Hemoglobin 10.9(L) 13.2 - 16.6 g/dL 03/06/2024 [...] CDT Abimael Giles LAB BLOO D ADD-ON [facility] [address] [place] [address], [place] DTL [facility] [address] [place] [address] * (ABNORMAL) Basic Metabolic Panel (03/06/2024 10:40 AM CDT) Potassium, S 3.7 3.6 - 5.2 mmol/L [...] AM CDT 03/06/2024 11:40 AM CDT Abimael RicoSBailey LAB BLOO D ADD-ON Performing Organization Address City/[facility]/ZIP Co de Phone Number [facility] [place] [address] [place], [place] [id number] [place] [address] [address] [place] [address] * (ABNORMAL) CBC without Differential (03/05/2024 5:55 AM CDT) Pathologist [facility] Hemoglobin 10.8(L) 13.2 - 16.6 g/dL 03/05/2024 6:40 AM CDT DTL Hematocrit 33.5(L) 38.3 - 48.6 % 03/05/2024 6:40 AM CDT DTL Erythrocytes 3.53(L) 4.35 - 5.65 x10(12)/L 03/05/2024 6:40 AM CDT DTL MCV 94.9 78.2 - 97.9 fL 03/05/2024 6:40 AM CDT DTL RBC Distrib Width 13.2 11.8 - 14.5 % 03/05/2024 6:40 AM CDT DTL Platelet Count 127(L) 135 - 317 x10(9)/L 03/05/2024 6:40 AM CDT DTL Leukocytes 5.3 3.4 - 9.6 x10(9)/L 03/05/2024 6:40 AM CDT DTL Blood (Blood, Venous) 03/05/2024 5:55 AM CDT 03/05/2024 6:30 AM CDT Abimael Giles LAB BLOO D ADD-ON [facility] [place] [address] [place] [address], [facility] [address] [place] [address] * (ABNORMAL) Basic Metabolic Panel (03/05/2024 5:55 AM CDT) Potassium, S 3.5(L) 3.6 - 5.2 mmol/L 03/05/2024 7:03 AM CDT DTL Sodium, S 140 135 - 145 mmol/L 03/05/2024 7:03 AM CDT DTL Chloride, S 102 98 - 107 mmol/L 03/05/2024 7:03 AM CDT DTL Bicarbonate, S 27 22 - 29 mmol/L 03/05/2024 7:03 AM CDT DTL Anion Gap 11 7 - 15 03/05/2024 7:03 AM CDT DTL BUN (Blood Urea Nitrogen), S 44(H) 8 - 24 mg/dL 03/05/2024 7:03 AM CDT DTL Creatinine 4.27(H) 0.74 - 1.35 mg/dL 03/05/2024 7:03 AM CDT DTL Estimated GFR (eGFR) <15(L) >=60 mL/min/BSA 03/05/2024 7:03 AM CDT DTL Comment: Estimated GFR calculated using the 2020 CKD_EPI creatinine equation. Calcium, Total, S 8.5(L) 8.8 - 10.2 mg/dL 03/05/2024 7:03 AM CDT DTL Glucose, S 100 70 - 140 mg/dL 03/05/2024 7:03 AM CDT DTL Blood (Blood, Venous) 03/05/2024 5:55 AM CDT 03/05/2024 6:46 AM CDT Abimael Giles LAB BLOO D ADD-ON [facility] [place] [address] [place] [address], [facility] [address] [place] [address] * (FREDDIE) 2D WITH COLOR AND DOPPLER (03/04/2024 10:56 [...] and the findings as documented in the regulatory associate and also performed a pertinent examination including [...] services technician. Adult probe inserted without difficulty. 3D imaging [...] Sedation Narrator or other pertinent record in [facility] for additional procedure and sedation information. Physician [...] septum without shunt by color Doppler. (No [id number] shunt with agitated saline on most recent FREDDIE 11/27/2023). 8. Complex, ulcerated immobile atherosclerosis of [...] septum without shunt by color Doppler. (No [id number] with agitated saline on most recent FREDDIE 11/27/2023). 8. Complex, ulcerated immobile atherosclerosis of [...] and the findings as documented in the regulatory associate and alsoperformed a pertinent examination including a heart, airway and lungassessment. Mallampati Assessment: Class II. Sedation plan:Transesophageal echo - moderate sedation. ASA physical status score: ClassIII. The patient's identity and all needed equipment were confirmed and afinal confirmatory pause was performed by the team immediately prior tostart. PROCEDURAL ECHO FINDINGS: Transesophageal echocardiogram performedat the request of the primary donor services technician. Adult probe insertedwithout difficulty. 3D imaging was [...] See SedationNarrator or other pertinent record in [facility] for additional procedure andsedation information. Physician signature for procedural medications andpatient discharge when DC criteria met. For the complete report, see the Order-Level Documents. Pham Rome M.D. CV ECHO PROCEDURES * (ABNORMAL) CBC without Differential (03/04/2024 5:48 AM CDT) Hemoglobin 10.5(L) 13.2 - 16.6 g/dL 03/04/2024 6:58 AM CDT DTL Hematocrit 32.8(L) 38.3 - 48.6 % 03/04/2024 6:58 AM CDT DTL Erythrocytes 3.50(L) 4.35 - 5.65 x10(12)/L 03/04/2024 6:58 AM CDT DTL MCV 93.7 78.2 - 97.9 fL 03/04/2024 6:58 AM CDT DTL RBC Distrib Width 13.0 11.8 - 14.5 % 03/04/2024 6:58 AM CDT DTL Platelet Count 128(L) 135 - 317 x10(9)/L 03/04/2024 6:58 AM CDT DTL Leukocytes 4.4 3.4 - 9.6 x10(9)/L 03/04/2024 6:58 AM CDT DTL Blood (Blood, Venous) 03/04/2024 5:48 AM CDT 03/04/2024 6:50 AM CDT Abimael Giles LAB BLOO D ADD-ON [address] [address], [facility] [place] [address] * (ABNORMAL) Basic Metabolic Panel (03/04/2024 5:48 AM CDT) Pathologist [facility] Potassium, S 3.6 3.6 - 5.2 mmol/L 03/04/2024 7:17 AM CDT DTL Sodium, S 140 135 - 145 mmol/L 03/04/2024 7:17 AM CDT DTL Chloride, S 102 98 - 107 mmol/L 03/04/2024 7:17 AM CDT DTL Bicarbonate, S 27 22 - 29 mmol/L 03/04/2024 7:17 AM CDT DTL Anion Gap 11 7 - 15 03/04/2024 7:17 AM CDT DTL BUN (Blood Urea Nitrogen), S 42(H) 8 - 24 mg/dL 03/04/2024 7:17 AM CDT DTL Creatinine 4.60(H) 0.74 - 1.35 mg/dL 03/04/2024 7:17 AM CDT DTL Estimated GFR (eGFR) <15(L) >=60 mL/min/BSA 03/04/2024 7:17 AM CDT DTL Comment: Estimated GFR calculated using the 2020 CKD_EPI creatinine equation. Calcium, Total, S 8.3(L) 8.8 - 10.2 mg/dL 03/04/2024 7:17 AM CDT DTL Glucose, S 107 70 - 140 mg/dL 03/04/2024 7:17 AM CDT DTL Blood (Blood, Venous) 03/04/2024 5:48 AM CDT 03/04/2024 7:00 AM CDT Abimael Giles LAB BLOO D ADD-ON [facility] [place] [address] [facility] [address] [place] [address] * (ABNORMAL) CBC without Differential (03/03/2024 5:25 AM CDT) Hemoglobin 11.0(L) 13.2 - 16.6 g/dL 03/03/2024 5:55 AM CDT DTL Hematocrit 34.2(L) 38.3 - 48.6 % 03/03/2024 5:55 AM CDT DTL Erythrocytes 3.63(L) 4.35 - 5.65 x10(12)/L 03/03/2024 5:55 AM CDT DTL MCV 94.2 78.2 - 97.9 fL 03/03/2024 5:55 AM CDT DTL RBC Distrib Width 13.2 11.8 - 14.5 % 03/03/2024 5:55 AM CDT DTL Platelet Count 143 135 - 317 x10(9)/L 03/03/2024 5:55 AM CDT DTL Leukocytes 4.9 3.4 - 9.6 x10(9)/L 03/03/2024 5:55 AM CDT DTL Blood (Blood, Venous) 03/03/2024 5:25 AM CDT 03/03/2024 5:50 AM CDT Abimael Giles LAB BLOO D ADD-ON [facility] [address] [place] [address], [facility] DTL [facility] [address] [place] [address] * (ABNORMAL) Basic Metabolic Panel (03/03/2024 5:24 AM CDT) Potassium, S 4.0 3.6 - 5.2 mmol/L 03/03/2024 6:18 AM CDT DTL Sodium, S 138 135 - 145 mmol/L 03/03/2024 6:18 AM CDT DTL Chloride, S 102 98 - 107 mmol/L 03/03/2024 6:18 AM CDT DTL Bicarbonate, S 25 22 - 29 mmol/L 03/03/2024 6:18 AM CDT DTL Anion Gap 11 7 - 15 03/03/2024 6:18 AM CDT DTL BUN (Blood Urea Nitrogen), S 46(H) 8 - 24 mg/dL 03/03/2024 6:18 AM CDT DTL Creatinine 4.48(H) 0.74 - 1.35 mg/dL 03/03/2024 6:18 AM CDT DTL Estimated GFR (eGFR) <15(L) >=60 mL/min/BSA 03/03/2024 6:18 AM CDT DTL Comment: Estimated GFR calculated using the 2020 CKD_EPI creatinine equation. Calcium, Total, S 8.5(L) 8.8 - 10.2 mg/dL 03/03/2024 6:18 AM CDT DTL Glucose, S 102 70 - 140 mg/dL 03/03/2024 6:18 AM CDT DTL Blood (Blood, Venous) 03/03/2024 5:24 AM CDT 03/03/2024 6:00 AM CDT Abimael Giles LAB BLOO D ADD-ON [facility] [place] [address] [place] [address], [facility] DTL [facility] [address] [place] [address] * (ABNORMAL) Hepatic Function Panel (03/03/2024 5:17 [...] AM CDT 03/03/2024 7:56 AM CDT Abimael RicoSBailey LAB BLOO D ADD-ON [facility] [place] [address] [place] [address], [facility] DTL [facility] [address] [place] [address] * DX Elbow Right 3+ Views (03/02/2024 [...] IMG DIAGNOSTIC IMAGI NG PROCEDURES * (ABNORMAL) Basic Metabolic Panel (03/02/2024 5:37 AM CDT) Pathologist [facility] Potassium, S 4.1 3.6 - 5.2 mmol/L 03/02/2024 6:38 AM CDT DTL Sodium, S 142 135 - 145 mmol/L 03/02/2024 6:38 AM CDT DTL Chloride, S 107 98 - 107 mmol/L 03/02/2024 6:38 AM CDT DTL Bicarbonate, S 26 22 - 29 mmol/L 03/02/2024 6:38 AM CDT DTL Anion Gap 9 7 - 15 03/02/2024 6:38 AM CDT DTL BUN (Blood Urea Nitrogen), S 43(H) 8 - 24 mg/dL 03/02/2024 6:38 AM CDT DTL Creatinine 4.47(H) 0.74 - 1.35 mg/dL 03/02/2024 6:38 AM CDT DTL Estimated GFR (eGFR) <15(L) >=60 mL/min/BSA 03/02/2024 6:38 AM CDT DTL Comment: Estimated GFR calculated using the 2020 CKD_EPI creatinine equation. Calcium, Total, S 8.6(L) 8.8 - 10.2 mg/dL 03/02/2024 6:38 AM CDT DTL Glucose, S 91 70 - 140 mg/dL 03/02/2024 6:38 AM CDT DTL Blood (Blood, Venous) 03/02/2024 5:37 AM CDT 03/02/2024 6:20 AM CDT Renae Manzanares M.D. LAB BLOOD ADD-ON [facility] [place] [address] [place] [address], [facility] DTL [facility] [address] [place] [address] * (ABNORMAL) CBC with Differential, Blood (03/02/2024 5:37 AM CDT) Hemoglobin 11.2(L) 13.2 - 16.6 g/dL 03/02/2024 [...] CDT Renae Manzanares M.D. LAB BLOOD ADD-ON Performing Organization Address City/[facility]/ZIP Co de Phone Number [facility] [place] [address] [place] [address], [facility] DTL [facility] [address] [place] [address] DHPM [facility] [address] [place] [address] * HBs Antibody, Serum (03/02/2024 5:34 AM CDT) Pathologist [facility] HBs Antibody, S Positive 1:44 PM CDT [facility] Comment: Patient is considered to have been exposed to HBV or immune from HBV vaccination. ----REFERENCE VALUE---- Unvaccinated: Negative Vaccinated: Positive HBs Antibody, Quantitative, S 621 mIU/mL 03/02/2024 1:44 PM CDT [facility] Comment: ----REFERENCE VALUE---- Unvaccinated: <8.5 mIU/mL Vaccinated: >=11.5 mIU/mL Blood 03/02/2024 5:34 AM CDT 03/02/2024 12:50 PM CDT Natalie Brownlee APRNN.P., M.S.N. LAB MICROBIOLOGY - BLOOD ORDERABLES [facility] [address] [place] [address] [facility] [address] [place] [address] * Hepatitis B Surface Antigen (03/02/2024 5:34 AM CDT) Pathologist [facility] HBs Antigen, S Negative Negative 03/02/2024 1:44 PM CDT [facility] Blood (Blood, Venous) 03/02/2024 5:34 AM CDT 03/02/2024 12:50 PM CDT Natalie Brownlee APRNNDenisse, M.S.N. LAB MICROBIOLOGY - BLOOD ORDERABLES Performing Organization Address City/[facility]/ZIP Co de Phone Number [facility] [address] [place] [address] [facility] [address] [place] [address] * ECG 12 Lead (03/02/2024 1:48 AM CDT) Pathologist [facility] Ventricular Rate ECG/Min 62 BPM MUSE QRSD Interval 124 ms MUSE QT Interval 432 ms MUSE QTC Interval 438 ms MUSE R Gaston 19 degrees MUSE T Wave Gaston 72 degrees MUSE 03/02/2024 1:48 AM CDT [...] NICHOL Laura Renae Manzanares M.D. ECG ORDERABLES Performing Organization Address [facility]/ZIP Co de Phone Number MUSE NA * CT Chest without IV [...] upper abdomen. Renae Manzanares M.D. [facility] [place]EDURES * (ABNORMAL) Comprehensive Metabolic Panel (03/01/2024 10:11 PM CDT) Pathologist [facility] Potassium, S 4.1 3.6 - 5.2 mmol/L [...] CDT Stuart Mohan M.D. LAB BLOOD ADD-ON [facility] [place] [address] [place] [address], [facility] [address] [place] [address] * (ABNORMAL) CBC with Differential, Blood (03/01/2024 10:11 PM CDT) Hemoglobin 11.3(L) 13.2 - 16.6 g/dL 03/01/2024 10:32 PM CDT DTL Hematocrit 36.3(L) 38.3 - 48.6 % 03/01/2024 10:32 PM CDT DTL Erythrocytes 3.74(L) 4.35 - 5.65 x10(12)/L 03/01/2024 10:32 PM CDT DTL MCV 97.1 78.2 - 97.9 fL 03/01/2024 10:32 PM CDT DTL RBC Distrib Width 13.3 11.8 - 14.5 % 03/01/2024 10:32 PM CDT DTL Platelet Count 142 135 - 317 x10(9)/L 03/01/2024 10:32 PM CDT DTL Leukocytes 5.3 3.4 - 9.6 x10(9)/L 03/01/2024 10:32 PM CDT DTL Neutrophils 3.66 1.56 - 6.45 x10(9)/L 03/01/2024 10:32 PM CDT DH[facility] Lymphocytes 0.55(L) 0.95 - 3.07 x10(9)/L 03/01/2024 10:32 PM CDT DTL Monocytes 0.54 0.26 - 0.81 x10(9)/L 03/01/2024 10:32 PM CDT DTL Eosinophils 0.49(H) 0.03 - 0.48 x10(9)/L 03/01/2024 10:32 PM CDT DTL Basophils 0.04 0.01 - 0.08 x10(9)/L 03/01/2024 10:32 PM CDT DTL Blood (Blood, Venous) 03/01/2024 10:11 PM CDT 03/01/2024 10:26 PM CDT Stuart Mohan M.D. LAB BLOOD ADD-ON [facility] [place] [address] [place] [address], [facility] DTL [facility] [address] [place] [address] * Lipid Panel (03/01/2024 10:11 PM CDT) Pathologist [facility] Triglycerides 82 mg/dL 03/01/2024 11:04 PM CDT [...] M.D. LAB BLOOD ADD-ON Performing Organization Address City/[facility]/ZIP Co de Phone Number [facility] [place] [address] [place], [place] [id number] [place] [address] [address] [place], [place] [id number] * S-TSH (Thyroid-Stimulating Hormone - Sensitive) (03/01/2024 10:11 PM CDT) [facility] TSH, Sensitive 2.2 0.3 - 4.2 mIU/L 03/01/2024 11:04 PM CDT DT Blood (Blood, Venous) 03/01/2024 10:11 PM CDT 03/01/2024 10:41 PM CDT Stuart Mohan M.D. LAB BLOOD ADD-ON Performing Organization Address City/[facility]/ZIP Co de Phone Number [facility] [place] [address] [place], [place] [id number] [place] [address] [facility] [address] [place] [address] * Hemoglobin A1c (03/01/2024 10:11 PM CDT) Hemoglobin A1c, B 5.5 4.0 - 5.6 % 03/01/2024 10:49 PM CDT DTL Blood (Blood, Venous) 03/01/2024 10:11 PM CDT 03/01/2024 10:26 PM CDT Stuart Mohan M.D. LAB BLOOD ADD-ON [facility] [place] [address] [place] [address], [facility] [address] [place] [address] documented in this encounter Visit Diagnoses Diagnosis Stroke (HCC)- Primary Stroke (HCC) [I63.9] Lack Of Coordination [R27.9] Deficit Cognitive Communication [R41.841] Decline Functional Status [R53.81] Gait Disorder From Stroke Cerebrovascular Accident Diplopia Stur[place] Campa Syndrome (HCC) Atrial Fibrillation Paroxysmal (HCC) Dialysis Peritoneal Status (HCC) documented in this encounter Admitting Diagnoses Diagnosis Stroke (HCC) documented in this encounter Administered Medications Active Administered Medications - up to 3 most recent administrations Medication Order MAR Action Action Date Dose Rate Site allopurinoL tablet 100 mg (Zyloprim) 100 mg, oral, Every morning, First dose on Mon03/02/24 at 0900 Given 03/06/2024 8:02 AM CDT 100 mg Given 03/05/2024 8:21 AM CDT 100 mg Given 03/04/2024 8:12 AM CDT 100 mg aspirin chewable tablet 81 mg 81 mg, oral, Daily, First dose on Mon03/05/24 at 0900, For 90 doses Given 03/06/2024 8:02 AM CDT 81 mg Given 03/05/2024 8:21 AM CDT 81 mg atorvastatin tablet 40 mg (Lipitor) 40 mg, oral, Every 24 hours, First dose (after last modification) on Mon03/05/24 at 1700 Given 03/06/2024 5:00 PM CDT 40 mg Given 03/05/2024 5:12 PM CDT [address] tablet 10 mg (Dulcolax) 10 mg, oral, 2 times daily PRN, constipation, Starting on Mon03/01/24 at 2153, Suppository is the preference. Swallow whole. Do NOT crush, chew, or split tablet. bisacodyL suppository 10 mg (Dulcolax) 10 mg, rectal, 2 times daily PRN, constipation, Starting on Mon03/01/24 at 2153, Suppository is the preference. calcitRIOL capsule 0.25 mcg (RocaltroL) 0.25 mcg, oral, 3 times weekly (Once per day on Monday), First dose on Mon03/06/24 at 0900 Given 03/06/2024 8:05 AM CDT 0.25 mcg cholecalciferol (vitamin D3) tablet 25 mcg 25 mcg, oral, Daily, First dose on Mon03/02/24 at 0900, cholecalciferol (vitamin D3) orderable was interchanged for cholecalciferol (vitamin D3) tablet/capsule Given 03/06/2024 8:02 AM C DT 25 mcg Given 03/05/2024 8:21 AM CDT 25 mcg Given 03/04/2024 8:12 AM CDT 25 mcg clopidogreL tablet 75 mg (Plavix) 75 mg, oral, Daily, First dose on Mon03/05/24 at 0900 Given 03/06/2024 8:02 AM CDT 75 mg Given 03/05/2024 8:21 AM CDT 75 mg famotidine tablet 10 mg (Pepcid) 10 mg, oral, Daily at bedtime, First dose (after last modification) on Mon03/05/24 at 2130, Drug Monitoring Program: Pharmacist to adjust medication dosing based on indication and drug clearance factors. Given 03/05/2024 9:08 PM CDT 10 mg gentamicin 0.1 % cream 1 Application (Garamycin) 1 Application, topical, Daily, First dose on Mon03/03/24 at 0900, Please apply daily to catheter exit site. Given 03/06/2024 8:06 AM CDT 1 Applica tion Given 03/05/2024 8:22 AM CDT 1 Application Given 03/04/2024 8:14 AM CDT 1 Application heparin (porcine) injection 5,000 Units 5,000 Units, subcutaneous, Every 8 hours scheduled, First dose on Mon03/05/24 at 0845 Given 03/06/2024 2:48 PM CDT 5,000 Units Right Upper Arm (Back) Given 03/06/2024 6:25 AM CDT 5,000 Units L eft Upper Arm (Back) Given 03/05/2024 9:04 PM CDT 5,000 Units L eft Upper Arm (Back) lidocaine 5 % ointment 1 Application (Xylocaine) 1 Application, mouth/throat, As needed, mild pain or score 1-3 of 10, See protocol, Starting on Mon03/04/24 at 0845, For 2 doses, Intraprocedure - Diagnostic, Apply 1 inch on tongue blade. Place ointment side down in back of mouth, as far back as possible. Instruct patient to swallow any dissolved ointment. After 2-3 minutes, check gag reflex. May repeat once if gag reflex remains. Administer first dose within 10 minutes of expected physician arrival to procedure. MAX of 20 g of ointment/day melatonin tablet 3 mg 3 mg, oral, Bedtime PRN, sleep, Starting on Mon03/05/24 at 2115 metoprolol tablet 12.5 mg (Lopressor) 12.5 mg, oral, 2 times daily, First dose (after last modification) on Mon03/05/24 at 0915 Given 03/06/2024 5:00 PM CDT 12.5 mg Given 03/06/2024 6:25 AM CDT 12.5 mg Given 03/05/2024 5:12 PM CDT 12.5 mg multivitamin renal failure 100-1 mg 1 tablet (Dialyvite) 1 tablet, oral, Daily with evening meal, First dose on Mon03/02/24 at 1700, give after dialysis on dialysis days Given 03/06/2024 5:00 PM CDT 1 tablet Given 03/05/2024 5:12 PM CDT 1 tablet Given 03/04/2024 4:22 PM CDT 1 tablet NaCl 0.9% bacteriostatic 0.9 % injection 30 mL 30 mL, intravenous, As needed, for agitated saline (bubble) studies, Starting on Mon03/04/24 at 0845, Intraprocedure - Diagnostic, See Martha. pantoprazole DR tablet 40 mg (Protonix) 40 mg, oral, 2 times daily before morning and evening meals, First dose on Mon03/02/24 at 1600, Swallow whole. Do NOT crush, chew, or split tablet. Given 03/06/2024 5:00 PM CDT 40 mg Given 03/06/2024 6:25 AM CDT 40 mg Given 03/05/2024 3:47 PM CDT 40 mg polyethylene glycol powder packet 17 g (Miralax) 17 g, oral, Daily, First dose on 03/03/24 at 1730, Dissolve in 240 mLs (8 ounces) of water prior to giving. Avoid mixing with starch-based thickened liquids. sennosides-docusate sodium 8.6-50 mg per tablet 2 tablet (Senokot-S) 2 tablet, oral, Daily, First dose on 03/02/24 at 0900, While on opioids. Do not give if patient has diarrhea. Given 03/06/2024 8:01 AM CDT 2 tablets Given 03/05/2024 8:21 AM CDT 1 tablet Given 03/03/2024 9:09 AM CDT 2 tablets sennosides-docusate sodium 8.6-50 mg per tablet 2 tablet (Senokot-S) 2 tablet, gastric tube, Daily, First dose on 03/02/24 at 0900, While on opioids. Do not give if patient has diarrhea. sodium chloride 0.9 % injection 10 mL 10 mL, intravenous, As needed, line care, Starting on Mon03/04/24 at 0845, Intraprocedure - Diagnostic, Prior to and following infusion and between multiple consecutive infusions: sodium chloride 0.9 % injection Given 03/04/2024 9:25 AM CDT 10 mL torsemide tablet 20 mg (Demadex) 20 mg, oral, Daily, First dose (after last modification) on 03/02/24 at 1200 Given 03/06/2024 8:02 AM CDT 20 mg Given 03/05/2024 8:21 AM CDT 20 mg Given 03/04/2024 8:12 AM CDT 20 mg Inactive Administered Medications - up to 3 most recent administrations Medication Order MAR Action Action Date Dose Rate Site apixaban tablet 2.5 mg (Eliquis) 2.5 mg, oral, 2 times daily, First dose on 03/02/24 at 0900 Given 03/04/2024 8:12 AM CDT 2.5 mg Given 03/03/2024 8:27 PM CDT 2.5 mg Given 03/03/2024 9:09 AM CDT 2.5 mg apixaban tablet 2.5 mg (Eliquis) 2.5 mg, oral, Once, On Mon03/04/24 at 2100, For 1 dose Given 03/04/2024 9:22 PM CDT 2.5 mg atorvastatin tablet 40 mg (Lipitor) 40 mg, oral, Daily at bedtime, First dose on Mon03/02/24 at 2100 Given 03/04/2024 9:22 PM CDT 40 mg Given 03/03/2024 8:27 PM CDT 40 mg Given 03/02/2024 8:41 PM CDT 40 mg famotidine tablet 10 mg (Pepcid) 10 mg, oral, Every other day, First dose on Mon03/02/24 at 2100, Drug Monitoring Program: Pharmacist to adjust medication dosing based on indication and drug clearance factors. Given 03/04/2024 9:22 PM CDT 10 mg Given 03/02/2024 8:45 PM CDT 10 mg fentaNYL injection (Sublimaze) As needed, Starting on Mon03/04/24 at 1009, Intraprocedure (CV) Given 03/04/2024 10:09 AM CDT 50 mcg lidocaine 4 % (40 mg/mL) topical solution (Xylocaine) As needed, Starting on Mon03/04/24 at 1002, Intraprocedure (CV) Given 03/04/2024 10:02 AM CDT 5 mL lidocaine 5 % ointment (Xylocaine) As needed, Starting on Mon03/04/24 at 0956, Intraprocedure (CV) Given 03/04/2024 9:56 AM CDT 1 Application metoprolol tablet 12.5 mg (Lopressor) 12.5 mg, oral, 2 times daily, First dose (after last modification) on Mon03/02/24 at 2100 Given 03/04/2024 9:23 PM CDT 12.5 mg Given 03/04/2024 8:12 AM CDT 12.5 mg Given 03/03/2024 8:27 PM CDT 12.5 mg metoprolol tartrate tablet 6.25 mg (Lopressor) 6.25 mg, oral, 2 times daily, First dose on Mon03/02/24 at 0900 Given 03/02/2024 8:24 AM CDT 6.25 mg midazolam (PF) injection (Versed) As needed, Starting on Mon03/04/24 at 1009, Intraprocedure (CV) Given 03/04/2024 10:12 AM CDT 1 mg Given 03/04/2024 10:09 AM CDT 1 mg PD 2.5 % dextrose Low Ca 2.5 mEq/L- Mg 0.5 mEq/L 6,000 mL Dialysis solution intraperitoneal, Once, On Mon03/02/24 at 1800, For 1 dose, Scheduling/ADT, Refer to: Continuous [facility] Peritoneal Dialysis ([facility]PD) order for therapy details Given 03/02/2024 9:39 PM CDT PD 2.5 % dextrose Low Ca 2.5 mEq/L- Mg 0.5 mEq/L 6,000 mL Dialysis solution intraperitoneal, Once, On Mon03/03/24 at 1600, For 1 dose, Scheduling/ADT, Refer to: Continuous [facility] Peritoneal Dialysis ([facility]PD) order for therapy details Given 03/03/2024 7:09 PM CDT PD 2.5 % dextrose Low Ca 2.5 mEq/L- Mg 0.5 mEq/L 6,000 mL Dialysis solution intraperitoneal, Once, On Mon03/04/24 at 1600, For 1 dose, Scheduling/ADT, Refer to: Continuous [facility] Peritoneal Dialysis ([facility]PD) order for therapy details Given 03/04/2024 7:35 PM CDT PD 2.5 % dextrose Low Ca 2.5 mEq/L- Mg 0.5 mEq/L 6,000 mL Dialysis solution intraperitoneal, Once, On Mon03/05/24 at 1800, For 1 dose, Scheduling/ADT, Refer to: Continuous Cycl[facility] Peritoneal Dialysis ([facility]PD) order for therapy details Given 03/05/2024 7:33 PM CDT PD 2.5 % dextrose Low Ca 2.5 mEq/L- Mg 0.5 mEq/L 6,000 mL Dialysis solution intraperitoneal, Once, On Mon03/06/24 at 1800, For 1 dose, Scheduling/ADT, Refer to: Continuous Cycl[facility] Peritoneal Dialysis ([facility]PD) order for therapy details Given 03/06/2024 7:16 PM CDT 6,000 mL documented in this encounter Active and Recently Administered Medications Times are shown in CDT. Scheduled Medication Order 03/04/2024 03/05/2024 03/06/2024 allopurinoL tablet 100 mg (Zyloprim) 100 mg, oral, Every morning, First dose on Mon03/02/24 at 0900 0812 (Given - Provider: Tyler Merino R.N.) 0821 (Given - Provider: Nazia Nava R.N.) 0802 (Given - Provider: Kim Dasilva R.N.) apixaban tablet 2.5 mg (Eliquis) (CANCELED) 2.5 mg, oral, 2 times daily, First dose on Mon03/02/24 at 0900 0812 (Given - Provider: Tyler Merino R.N.) apixaban tablet 2.5 mg (Eliquis) (COMPLETED) 2.5 mg, oral, Once, On Mon03/04/24 at 2100, For 1 dose 2121 (Given - Provider: Suni Ledesma R.N.) aspirin chewable tablet 81 mg 81 mg, oral, Daily, First dose on Mon03/05/24 at 0900, For 90 doses 0821 (Given - Provider: Nazia Nava R.N.) 0802 (Given - Provider: Kim Dasilva R.N.) atorvastatin tablet 40 mg (Lipitor) (CANCELED) 40 mg, oral, Daily at bedtime, First dose on Mon03/02/24 at 2100 212 (Given - Provider: Suni Ledesma R.N.) atorvastatin tablet 40 mg (Lipitor) 40 mg, oral, Every 24 hours, First dose (after last modification) on Mon03/05/24 at 1700 1712 (Given - Provider: Brandee BoydS.NBailey, R.N.) 1700 (Given - Provider: Ratna Pompa R.N.) calcitRIOL capsule 0.25 mcg (RocaltroL) 0.25 mcg, oral, 3 times weekly (Once per day on Monday), First dose on Mon03/06/24 at 0900 0805 (Given - Provider: Kim Dasilva R.N.) calcitRIOL capsule 0.25 mcg (RocaltroL) 0.25 mcg, oral, Once, On Mon03/04/24 at 2200, For 1 dose 2201 (Not Given - Provider: Suni Ledesma R.N. - Reason: Patient/family refused) cholecalciferol (vitamin D3) tablet 25 mcg 25 mcg, oral, Daily, First dose on Mon03/02/24 at 0900, cholecalciferol (vitamin D3) orderable was interchanged for cholecalciferol (vitamin D3) tablet/capsule 08 (Given - Provider: Tyler Merino R.N.) 0821 (Given - Provider: Nazia Nava R.N.) 08 (Given - Provider: Kim Dasilva R.N.) clopidogreL tablet 75 mg (Plavix) 75 mg, oral, Daily, First dose on Mon03/05/24 at 0900 08 (Given - Provider: Nazia Nava R.N.) 08 (Given - Provider: Kim Dasilva R.N.) famotidine tablet 10 mg (Pepcid) (CANCELED) 10 mg, oral, Every other day, First dose on Mon03/02/24 at 2100, Drug Monitoring Program: Pharmacist to adjust medication dosing based on indication and drug clearance factors. 2121 (Given - Provider: Suni Ledesma R.N.) famotidine tablet 10 mg (Pepcid) 10 mg, oral, Daily at bedtime, First dose (after last modification) on Mon03/05/24 at 2130, Drug Monitoring Program: Pharmacist to adjust medication dosing based on indication and drug clearance factors. 2107 (Given - Provider: Suni Ledesma R.N.) 2099 (Due) gentamicin 0.1 % cream 1 Application (Garamycin) 1 Application, topical, Daily, First dose on Mon03/03/24 at 0900, Please apply daily to catheter exit site. 0814 (Given - Provider: Tyler Merino R.N.) 0822 (Given - Provider: Nazia Nava R.N.) 0806 (Given - Provider: Kim Dasilva R.N.) heparin (porcine) injection 5,000 Units 5,000 Units, subcutaneous, Every 8 hours scheduled, First dose on Mon03/05/24 at 0845 0925 (Given - Provider: Neeta Boyd, R.N.)1303 (Given - Provider: Nazia Nava R.N.)2104 (Given - Provider: Suni Ledesma R.N.) 0625 (Given - Provider: Suni Ledesma R.N.)1448 (Given - Provider: Suzy KingNBailey)2200 (Due) metoprolol tablet 12.5 mg (Lopressor) (CANCELED) 12.5 mg, oral, 2 times daily, First dose (after last modification) on Mon03/02/24 at 2100 0812 (Given - Provider: Tyler Merino R.N.)2123 (Given - Provider: Suzy SalmeronNBailey) metoprolol tablet 12.5 mg (Lopressor) 12.5 mg, oral, 2 times daily, First dose (after last modification) on Mon03/05/24 at 0915 0925 (Given - Provider: Brandee BoydSBaileyNBailey, R.N.)1712 (Given - Provider: Brandee BoydSBaileyNBailey, R.N.) 0625 (Given - Provider: Suni Ledesma RNicholas)1700 (Given - Provider: Ratna Pompa RNicholas) multivitamin renal failure 100-1 mg 1 tablet (Dialyvite) 1 tablet, oral, Daily with evening meal, First dose on Mon03/02/24 at 1700, give after dialysis on dialysis days 1622 (Given - Provider: Tyler Merino R.N.) 1712 (Given - Provider: Brandee BoydS.N., R.N.) 1700 (Given - Provider: Ratna Pompa R.N.) pantoprazole DR tablet 40 mg (Protonix) 40 mg, oral, 2 times daily before morning and evening meals, First dose on Mon03/02/24 at 1600, Swallow whole. Do NOT crush, chew, or split tablet. 0549 (Not Given - Provider: Stella Patrick RNicholas - Reason: NPO)1622 (Given - Provider: Tyler Merino RNicholas) 0555 (Given - Provider: Suni Ledesma RBaileyN.)1547 (Given - Provider: Brandee BoydSNicholas, R.N.) 0625 (Given - Provider: Suni Ledesma RBaileyNBailey)1700 (Given - Provider: Suzy SchmidNBailey) PD 2.5 % dextrose Low Ca 2.5 mEq/L- Mg 0.5 mEq/L 6,000 mL Dialysis solution (COMPLETED) intraperitoneal, Once, On Mon03/04/24 at 1600, For 1 dose, Scheduling/ADT, Refer to: [facility] Peritoneal Dialysis ([facility]PD) order for therapy details 1934 (Given - Provider: Raphael Salter R.N.) PD 2.5 % dextrose Low Ca 2.5 mEq/L- Mg 0.5 mEq/L 6,000 mL Dialysis solution (COMPLETED) intraperitoneal, Once, On Mon03/05/24 at 1800, For 1 dose, Scheduling/ADT, Refer to: Continuous Cycling Peritoneal Dialysis (CCPD) order for therapy details 1932 (Given - Provider: Raphael Salter RNicholas) PD 2.5 % dextrose Low Ca 2.5 mEq/L- Mg 0.5 mEq/L 6,000 mL Dialysis solution (COMPLETED) intraperitoneal, Once, On Mon03/06/24 at 1800, For 1 dose, Scheduling/ADT, Refer to: Continuous Cycling Peritoneal Dialysis ([facility]PD) order for therapy details 1915 (Given - Provider: Sarthak Alaniz RBaileyNBailey) polyethylene glycol powder packet 17 g (Miralax) 17 g, oral, Daily, First dose on Mon03/03/24 at 1730, Dissolve in 240 mLs (8 ounces) of water prior to giving. Avoid mixing with starch-based thickened liquids. 0813 (Not Given - Provider: Tyler Merino R.N. - Reason: Patient/family refused) 0825 (Not Given - Provider: Nazia Nava Antwan - Reason: Patient/family refused) 0808 (Not Given - Provider: Kim Dasilva R.N. - Reason: Patient/family refused) sennosides-docusate sodium 8.6-50 mg per tablet 2 tablet (Senokot-S)(Linked Group 1) 2 tablet, oral, Daily, First dose on 03/02/24 at 0900, While on opioids. Do not give if patient has diarrhea. 0813 (Not Given - Provider: Tyler Merino R.N. - Reason: Patient/family refused) 0821 (Given - Provider: Nazia Nava R.N. - Comment: pt requested 1) 0801 (Given - Provider: Kim Dasilva R.N.) sennosides-docusate sodium 8.6-50 mg per tablet 2 tablet (Senokot-S)(Linked Group 1) 2 tablet, gastric tube, Daily, First dose on 03/02/24 at 0900, While on opioids. Do not give if patient has diarrhea. 0813 (See Alternative - Provider: Tyler Merino R.N.) 0821 (See Alternative - Provider: Nazia Nava R.N.) 0801 (See Alternative - Provider: Kim Dasilva R.N.) torsemide tablet 20 mg (Demadex) 20 mg, oral, Daily, First dose (after last modification) on 03/02/24 at 1200 0812 (Given - Provider: Tyler Merino R.N.) 0821 (Given - Provider: Nazia Nava R.N.) 0802 (Given - Provider: Kim Dasilva R.N.) PRN Medication Order 03/04/2024 03/05/2024 03/06/[address] tablet 10 mg (Dulcolax)(Linked Group 2) 10 mg, oral, 2 times daily PRN, constipation, Starting on Mon03/01/24 at 2153, Suppository is the preference. Swallow whole. Do NOT crush, chew, or split tablet. bisacodyL suppository 10 mg (Dulcolax)(Linked Group 2) 10 mg, rectal, 2 times daily PRN, constipation, Starting on Mon03/01/24 at 2153, Suppository is the preference. fentaNYL injection (Sublimaze) (COMPLETED) As needed, Starting on Mon03/04/24 at 1009, Intraprocedure (CV) 1009 (Given - Provider: Caren Ray R.N.) lidocaine 4 % (40 mg/mL) topical solution (Xylocaine) (COMPLETED) As needed, Starting on Mon03/04/24 at 1002, Intraprocedure (CV) 1002 (Given - Provider: Suzy ChristinasenN.) lidocaine 5 % ointment (Xylocaine) (COMPLETED) As needed, Starting on Mon03/04/24 at 0956, Intraprocedure (CV) 0956 (Given - Provider: Caren Ray R.N.) lidocaine 5 % ointment 1 Application (Xylocaine) 1 Application, mouth/throat, As needed, mild pain or score 1-3 of 10, See protocol, Starting on Mon03/04/24 at 0845, For 2 doses, Intraprocedure - Diagnostic, Apply 1 inch on tongue blade. Place ointment side down in back of mouth, as far back as possible. Instruct patient to swallow any dissolved ointment. After 2-3 minutes, check gag reflex. May repeat once if gag reflex remains. Administer first dose within 10 minutes of expected physician arrival to procedure. MAX of 20 g of ointment/day melatonin tablet 3 mg 3 mg, oral, Bedtime PRN, sleep, Starting on Mon03/05/24 at 2115 midazolam (PF) injection (Versed) (COMPLETED) As needed, Starting on Mon03/04/24 at 1009, Intraprocedure (CV) 1009 (Given - Provider: Suzy ChristiansenN.)1012 (Given - Provider: Caren Ray R.N.) NaCl 0.9% bacteriostatic 0.9 % injection 30 mL 30 mL, intravenous, As needed, for agitated saline (bubble) studies, Starting on Mon03/04/24 at 0845, Intraprocedure - Diagnostic, See Martha. sodium chloride 0.9 % injection 10 mL 10 mL, intravenous, As needed, line care, Starting on 7/15/24 at 0845, Intraprocedure - Diagnostic, Prior to and following infusion and between multiple consecutive infusions: sodium chloride 0.9 % injection 0925 (Given - Provider: Caren Ray R.N.) Linked Groups Order Group 1: sennosides-docusate sodium 8.6-50 mg per tablet 2 tablet (Senokot-S)Jump to med 2 tablet, oral, Daily, First dose on 03/02/24 at 0900, While on opioids. Do not give if patient has diarrhea. Or sennosides-docusate sodium 8.6-50 mg per tablet 2 tablet (Senokot-S)Jump to med 2 tablet, gastric tube, Daily, First dose on 03/02/24 at 0900, While on opioids. Do not give if patient has diarrhea. Group 2: bisacodyL DR tablet 10 mg (Dulcolax)Jump to med 10 mg, oral, 2 times daily PRN, constipation, Starting on Mon03/01/24 at 2153, Suppository is the preference. Swallow whole. Do NOT crush, chew, or split tablet. Or bisacodyL suppository 10 mg (Dulcolax)Jump to med 10 mg, rectal, 2 times daily PRN, constipation, Starting on Mon03/01/24 at 2153, Suppository is the preference. documented in this encounter Care Teams Business Office Director Relationship Specialty Start Date End Date Elsewhere, Pcp PCP - General Internal Medicine 11/24/23 documented as of this encounter
--- OUTSIDE RECORDS SUMMARY | 2024-03-06 20:32 | XMS_ITS | Referral Summary ---
Author Organization [facility] Address [address] [place] [address] Care Team Providers [employer] Truck Driver Name Role Phone Elsewhere, Pcp Primary Care Provider Unavailabl e Source Comments Patient records contain information from all sites at [facility]. For routine questions regarding patient records, call [phone] during business hours, M-F 8:00 AM - 5:00 PM Central Time. Record requests for emergency care only can be directed to [phone] at any time.[facility] Encounters Date Type Department Care Team Description 03/02/2024 1:30 PM CDT - 03/02/2024 11:59 PM CDT Hospital Encounter Department of Radiology, [facility] in [address] [phone] Pham Rome M.D. Discharge Disposition: Home or Self Care 03/01/2024 9:51 PM CDT - Present Hospital Encounter [facility], [facility], Second floor [address] [place] [phone] Stuart Mohan M.D. Stroke (HCC) [I63.9] (Primary Dx); Stroke (HCC); Lack Of Coordination [R27.9]; Deficit Cognitive Communication [R41.841]; Decline Functional Status [R53.81] 03/01/2024 Intake [facility] from Last 3 Months Allergies Active Allergy [...] by mouth at bedtime. 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 More than 4 times per year 04/11/2022 Do you belong to any clubs o r organizations such as orthodox groups, unions, fraternal or [...] and heating? Not hard at all 05/13/2023 [facility] - Occupational [...] have a st [place] place to live 03/01/2024 Education Answer Date [...] 03/02/2024 4:12 PM CDT Plan of Treatment Not on file Medical Devices Implanted Type Area Athletic Field Custodian Device Identifier Shelf Expiration Date Model / Serial / Lot Osteomed-Plate Straight 2 Hole Med - Baptiste [id number] Implanted:Qty: 1 on 06/19/2002 Hardware e.g. pins/screws/ rods [employer] Description:Device Manufactu rer - [employer]. Device Status Text - [id number]. Osteomed-Plate [place] Hole Large - Baptiste [id number] Implanted:Qty: 2 on 06/19/2002 Hardware e.g. pins/screws/ rods [employer] Description:Device Manufactu rer - [employer]. Device Status Text - [id number]. Osteomed-Screw Auto-Drive 1.6 X 4 - Baptiste [id number] Implanted:Qty: 16 on 06/19/2002 Hardware e.g. pins/screws/ rods [employer] Description:Device Manufactu rer - [employer]. Device Status Text - [id number]. Dev Kelsie Cls [facility] Pro Del Sys 27 - [id number] Implanted:Qty: 1 on 10/17/2023 by Radha Andrade M.B.B.S. at [facility] Mesh or Patch [employer] 05/07/2026 [id number] / / [id number] Procedures The patient is currently admitted. The [...] of4 resultswithin the time period is included. Pathologist [facility] Hemoglobin 10.9(L) 13.2 - 16.6 g/dL 03/06/2024 [...] Giles LAB BLOO D ADD-ON [facility] [address] [place] [address], [facility] [address] [place] [address] * (ABNORMAL) Basic Metabolic Panel (03/06/2024 10:40 AM CDT) Only the most recent of5 resultswithin the time period is included. Pathologist [facility] Potassium, S 3.7 3.6 - 5.2 mmol/L [...] CDT Abimael [place] [address], [facility] [address] [place] [address] * (JASON) 2D WITH COLOR AND DOPPLER [...] and the findings as documented in the email engineer and also performed a pertinent examination [...] performed at the request of the primary ambulatory service representative. Adult probe inserted without difficulty. 3D imaging [...] Sedation Narrator or other pertinent record in [facility] for additional procedure and sedation information. [...] septum without shunt by color Doppler. (No mhtkd-zo-odrs shunt with agitated saline on most recent [...] septum without shunt by color Doppler. (No kvogr-gr-duogphamu with agitated saline on most recent JASON [...] and the findings as documented in the email engineer and alsoperformed a pertinent examination including a heart, airway and lungassessment. Mallampati Assessment: Class II. Sedation plan:Transesophageal echo - moderate sedation. ASA physical status score: ClassIII. The patient's identity and all needed equipment were confirmed and afinal confirmatory pause was performed by the team immediately prior tostart. PROCEDURAL ECHO FINDINGS: Transesophageal echocardiogram performedat the request of the primary ambulatory service representative. Adult probe insertedwithout difficulty. 3D imaging was [...] See SedationNarrator or other pertinent record in [facility] for additional procedure andsedation information. Physician [...] CDT Abimael Giles LAB BLOO D ADD-ON [facility] [address] [place] [address], [facility] DTL [facility] [address] [place] [address] * DX Elbow Right 3+ Views (03/02/2024 [...] calcifications. Peripheral IV in theantecubital fossa. Pham BAKER DIAGNOSTIC IMAGI NG PROCEDURES * (ABNORMAL) CBC [...] 5:37 AM CDT 03/02/2024 6:03 AM CDT eRnae Manzanares M.D. LAB BLOOD ADD-ON Performing Organization Address [facility] Co de Phone Number [facility] [address] [place] [address], [facility] DTL [facility] [address] [place] [address] [facility] [address] [place] [address] * HBs Antibody, Serum (03/02/2024 5:34 AM CDT) HBs Antibody, S Positive 1:44 PM CDT [facility] Comment: Patient is considered to have been exposed to HBV or immune from HBV vaccination. ----REFERENCE VALUE---- Unvaccinated: Negative Vaccinated: Positive HBs Antibody, Quantitative, S 621 mIU/mL 03/02/2024 1:44 PM CDT [facility] Comment: ----REFERENCE VALUE---- Unvaccinated: <8.5 mIU/mL Vaccinated: >=11.5 mIU/mL Blood 03/02/2024 5:34 AM CDT 03/02/2024 12:50 PM CDT Natalie Brownlee APRNN.P., M.S.N. LAB MICROBIOLOGY - BLOOD ORDERABLES Performing Organization Address City/[facility]/ZIP Co de Phone Number [facility] [address] [place] [address] [facility] [address] [place] [address] * Hepatitis B Surface Antigen (03/02/2024 5:34 AM CDT) HBs Antigen, S Negative Negative 03/02/2024 1:44 PM CDT [facility] Blood (Blood, Venous) 03/02/2024 5:34 AM CDT 03/02/2024 12:50 PM CDT Anika Blevins Marco QUINTANILLA C.N.P., M.S.N. LAB MICROBIOLOGY - BLOOD ORDERABLES [facility] [address] [place] [address] [facility] [address] [place] [address] * ECG 12 Lead (03/02/2024 1:48 AM CDT) Ventricular Rate ECG/Min 62 BPM MUSE QRSD Interval 124 ms MUSE QT Interval 432 ms MUSE QTC Interval 438 ms MUSE R [place] 19 degrees MUSE T Wave [place] 72 degrees MUSE 03/02/2024 1:48 AM CDT [...] Manzanares M.D. ECG ORDERABLES Performing Organization Address City/[facility]/ZIP Co de Phone Number MUSE NA * [...] in the upper abdomen. Renae Manzanares M.D. IMG CT PROCEDURES * Lipid Panel (03/01/2024 10:11 [...] CDT Stuart Mohan M.D. LAB BLOOD ADD-ON [facility] [address] [place] [address], [facility] [address] [place] [address] * S-TSH (Thyroid-Stimulating Hormone - Sensitive) (03/01/2024 10:11 PM CDT) Pathologist [facility] TSH, Sensitive 2.2 0.3 - 4.2 mIU/L 03/01/2024 11:04 PM CDT DTL Blood (Blood, Venous) 03/01/2024 10:11 PM CDT 03/01/2024 10:41 PM CDT Stuart Mohan M.D. LAB BLOOD ADD-ON [facility] [address] [place], [place] [address] [address] [place] [address] * Hemoglobin A1c (03/01/2024 10:11 PM CDT) [facility] Hemoglobin A1c, B 5.5 4.0 - 5.6 % 03/01/2024 10:49 PM CDT DT Blood (Blood, Venous) 03/01/2024 10:11 PM CDT 03/01/2024 10:26 PM CDT Stuart Mohan M.D. LAB BLOOD ADD-ON [facility] [address] [place], [place] [address] [address] [place] [address] * (ABNORMAL) Comprehensive Metabolic Panel (03/01/2024 10:11 PM CDT) Pathologist [facility] Potassium, S 4.1 3.6 - 5.2 mmol/L [...] CDT Stuart Mohan M.D. LAB BLOOD ADD-ON [facility] [address] [place] [address], [place] DTL [facility] [address] [place] [address] * MR Angio Neck wo Con-Outside MR [...] IMG MRI PROCEDURE S Performing Organization Address [facility] Co de Phone Number IIMS NA * [...] System IMG CT PROCEDURES Performing Organization Address City/[facility]/ZIP Co de Phone Number IIMS NA from Last 3 Months Advance Directives For more information, please contact: [phone] * Full Code (Latest Code Status on [...] Answer Comments Full Code: Discussed Care Teams [employer] Truck Driver Relationship Specialty Start Date End Date Elsewhere, Pcp PCP - General Internal Medicine 11/24/23
--- OUTSIDE RECORDS SUMMARY | 2024-03-06 20:33 | XMS_ITS | Encounter Summary ---
Author Organization [facility] Address [address] [place] [address] Care Team Providers Care Communications Technologist Name Role Phone Harish Silver MD Primary Care Provider [phone] Encounter Details Date Type Department Care Team (Late st Contact Info) Description 12/04/2023 Orders Only [facility] [place] [address] [place] [address] Sebastian Charles MD [address] [place] [address] Social History Tobacco Use Types [...] 12/04/2023 12/05/2023 12: 45 PM CDT Narrative [facility] - 12/05/2023 Unless otherwise specified, test(s) performed at: [employer], [address] [place] [address], [place] [address] AUTOMATION ARCHITECT: Dariel Doyle M.D., Ph.D For any questions, please call customer service at FREQUENCY:MONTHLY Resulting Agency Comment Specimen source: Serum Sebastian Charles MD LAB BLOOD ORDERABLES [facility] See order comments or [...] 12/05/2023 Unless otherwise specified, test(s) performed at: [employer], [address] [place] [address], [place] [address] AUTOMATION ARCHITECT: Dariel Doyle M.D., Ph.D For any questions, please call customer service at FREQUENCY:MONTHLY Resulting Agency Comment Specimen source: Blood Sebastian Charles MD LAB BLOOD ORDERABLES [facility] See order comments or contact performing lab Unknown, [place] documented in this encounter Visit Diagnoses Not on filedocumented in this encounter Care Teams Communications Technologist Relationship Specialty Start Date End Date Harish Silver MD [address] [place] [address] PCP - General 05/17/19 documented as of this encounter
--- OUTSIDE RECORDS SUMMARY | 2024-03-06 20:33 | XMS_ITS | Clinical Summary ---
Author Organization [facility] [place] Address [address] [facility] [place] [address] Phone Care Team Providers Care Box Truck Owner Operator Name Role Phone Harish Silver MD Primary Care Provider [phone] Encounters Date Type Department Care Team Description 02/14/2024 Orders Only [facility] [place] [address] [place] [address] Sebastian Charles MD 02/14/2024 [facility] [address] [place] [address] Sebastian Charles MD 01/31/2024 Orders Only [facility] [address] [place] [address] Sebastian Charles MD 01/01/2024 Treatment [facility] [address] [place] [address] Sebastian Charles MD 12/25/2023 Orders Only [facility] [address] [place] [address] Sebastian Charles MD 12/08/2023 Treatment [facility] [place] [address] Sebastian Charles MD from Last 3 Months [...] 12/25/2023 CHEMISTRY Routine 12/25/2023 HEMATOLOGY Routine 12/25/2023 from Last 3 Months Results * (ABNORMAL) [...] Urine Sebastian Charles MD LAB URINE ORDERABLES [facility] See order comments [...] FLUIDS AND STOOLS ORDERABLES Performing Organization Address [facility] de Phone Number [facility] See order comments or contact performing lab Unknown, [place] * PD ADEQUACY (02/14/2024) Only the most recent of2 resultswithin the time period is included. Pathologist [facility] Kt/V, Residual 2.42 [facility] 02/14/2024 02/15/2024 9:5 3 AM CDT Narrative [facility] - 02/15/2024 Unless otherwise specified, test(s) performed at: [facility], [address] [place] [address], [place] [address] ENGINEER INTERN: Dariel Doyle M.D., Ph.D For any questions, please call customer service at FREQUENCY:OTHER Resulting Agency Comment Specimen source: Urine Sebastian Charles MD LAB BODY FLUIDS AND STOOLS ORDERABLES Performing Organization Address [facility] de Phone Number [facility] See order comments or contact performing lab Unknown, [place] * PATIENT INFORMATION (02/14/2024) Only the most recent of3 resultswithin the time period is included. Pathologist [facility] Urea Volume Distribution (Zoraida) 43.3 L [facility] 02/14/2024 02/15/2024 9:3 6 AM CDT Narrative [facility] - 02/15/2024 Unless otherwise specified, test(s) performed at: [facility], [address] [place] [address], [place] [address] ENGINEER INTERN: Dariel Doyle M.D., Ph.D For any questions, please call customer service at FREQUENCY:OTHER Resulting Agency Comment Specimen source: PD Fluid Sebastian Charles MD LAB BLOOD ORDERABLES Performing Organization Address [facility] de Phone Number [facility] See order comments or contact performing lab Unknown, [place] * (ABNORMAL) [facility] Chemistry (02/14/2024) Only the most recent of4 resultswithin the time period is included. Pathologist [facility] BUN 49(H) 6 - 19 mg/dL [facility] 02/14/2024 02/15/2024 7:1 3 AM CDT Narrative [facility] - 02/15/2024 Unless otherwise specified, test(s) performed at: [facility], [address] [place] [address], [place] [address] ENGINEER INTERN: Dariel Doyle M.D., Ph.D For any questions, please call customer service at FREQUENCY:MONTHLY Resulting Agency Comment Specimen source: Serum Sebastian Charles MD LAB BLOOD ORDERABLES [facility] See order comments or contact performing lab Unknown, [place] * (ABNORMAL) HEMATOLOGY (01/31/2024) Only the most recent of2 resultswithin the time period is included. [facility] Neutrophils 70.8 40.0 - 75.0 % [facility] [...] 02/01/2024 Unless otherwise specified, test(s) performed at: [facility], [address] [place] [address], [place] [address] ENGINEER INTERN: Dariel Doyle M.D., Ph.D For any questions, please call customer service at FREQUENCY:MONTHLY Resulting Agency Comment Specimen source: Blood Sebastian Charles MD LAB BLOOD ORDERABLES [facility] See order comments or contact performing lab Unknown, [place] from Last 3 Months Care Teams Box Truck Owner Operator Relationship Specialty Start Date End Date Harish Silver MD [address] [place] [address] [address] PCP - General 05/17/19
--- OUTSIDE RECORDS SUMMARY | 2024-03-06 20:33 | XMS_ITS | Encounter Summary ---
Author Organization [facility] Address [address] [place] [address] Care Team Providers Care Cookie Mixer Helper Name Role Phone Harish Silver MD Primary Care Provider Encounter Details Date Type Department Care Team (Late st Contact Info) Description 02/14/2024 Treatment [facility] [place] [address] [place] [address] Sebastian Charles MD [address] [place] [address] Social History Tobacco Use Types [...] Name: David Castro : 1940 Chart #: [id number] Sex: M This patient was personally seen for a complete visit as part of routine monthly dialysis care. A review of the dialysis treatment, blood pressure, estimated dry weight, and recent lab values was made. These were discussed with the patient and staff as necessary. BIOINFORMATICIAN: Sebastian Charles MD LOCATION: [place] [phone] SCHEDULE: No Routine Schedule Subjective Tolerating dialysis [...] expressed interest in doing this (trip to [place] to visit family) Peritoneal Dialysis Access Assessment [...] on filedocumented in this encounter Care Teams Cookie Mixer Helper Relationship Specialty Start Date End Date Harish Silver MD [address] [place] [address] PCP - General 05/17/19 documented as of this encounter
--- OUTSIDE RECORDS SUMMARY | 2024-03-06 20:33 | XMS_ITS | Encounter Summary ---
Author Organization [facility] Address [address] [place] [address] Care Team Providers Care Email Marketing Processor Name Role Phone Elsewhere, Pcp Primary Care Provider Unavailabl e Encounter Details Date Type Department Care Team (Latest Contact Info) Description 03/01/2024 Intake [facility] Social History Tobacco Use Types Packs/Day Years Used Date Smoking Tobacco: Never Smokeless Tobacco: Never Alcohol Use Standard Drinks/Week Comments Never 0 (1 standard drink = 0.6 oz pur e alcohol) [facility] Utilities Answer Date Recorded In the past [...] often do you attend chur ch or sabianist services? More than 4 times per year 04/11/2022 Do you belong to any clubs o r organizations such as tenriism groups, unions, fraternal [...] a [facility] to live 03/01/2024 Education Answer [...] Sign Reading Time Taken Comments Blood Pressure 131/63 03/01/2024 9:44 PM CDT Pulse 75 03/01/2024 9:44 PM CDT Temperature - - Respiratory Rate 75 03/01/2024 9:44 PM CDT Oxygen Saturation 97% 03/01/2024 9:44 PM CDT Inhaled Oxygen Concentration - - Weight - - Height - - Body Mass Index - - documented in this encounter Plan of Treatment Not on file documented as of this encounter Visit Diagnoses Not on filedocumented in this encounter Care Teams Email Marketing Processor Relationship Specialty Start Date End Date Elsewhere, Pcp PCP - General Internal Medicine 11/24/23 documented as of this encounter
--- OUTSIDE RECORDS SUMMARY | 2024-03-06 20:33 | XMS_ITS | Encounter Summary ---
Author Organization [facility] Address [address] [place] [address] Care Team Providers Care Shop And Alteration Tailor Name Role Phone Harish Silver MD Primary Care Provider [phone] Encounter Details Date Type Department Care Team (Late st Contact Info) Description 12/25/2023 Orders Only [facility] [place] [address] [place] [address] Sebastian Charles MD [address] [place] [address] Social History Tobacco Use [...] (12/25/2023) PTH 268(H) 16 - 80 pg/mL [place] 12/25/2023 12/26/2023 12: 52 PM CDT Narrative [facility] - 12/26/2023 Unless otherwise specified, test(s) performed at: [facility], [address] [place] [address] CERTIFIED PEDORTHOTIST: Dariel Doyle M.D., Ph.D For any questions, please call customer service at FREQUENCY:MONTHLY Resulting Agency Comment Specimen source: Plasma Sebastian Charles MD LAB BLOOD ORDERABLES [place] [...] 12/25/2023 12/26/2023 12: 59 PM CDT Narrative [facility] - 12/26/2023 Unless otherwise specified, test(s) performed at: [facility], [address] [place] [address], [place] [address] CERTIFIED PEDORTHOTIST: Dariel Doyle M.D., Ph.D For any questions, please call customer service at FREQUENCY:MONTHLY Resulting Agency Comment Specimen source: Serum Sebastian Charles MD LAB BLOOD ORDERABLES [facility] See order comments or contact [...] 12/25/2023 12/26/2023 12: 59 PM CDT Narrative [facility] - 12/26/2023 Unless otherwise specified, test(s) performed at: [facility], [address] [place] [address], [place] [address] CERTIFIED PEDORTHOTIST: Dariel Doyle M.D., Ph.D For any questions, please call customer service at FREQUENCY:MONTHLY Resulting Agency Comment Specimen source: Blood Sebastian Charles MD LAB BLOOD ORDERABLES [facility] See order comments or contact performing lab Unknown, [place] documented in this encounter Visit Diagnoses Not on filedocumented in this encounter Care Teams Shop And Alteration Tailor Relationship Specialty Start Date End Date Harish Silver MD [address] [place] [address] PCP - General 05/17/19 documented as of this encounter
--- OUTSIDE RECORDS SUMMARY | 2024-03-06 20:33 | XMS_ITS | Encounter Summary ---
Author Organization [facility] Address [address] [place] [address] Care Team Providers Care Suction Operator Name Role Phone Harish Silver MD Primary Care Provider [phone] Encounter Details Date Type Department Care Team (Late st Contact Info) Description 12/08/2023 Treatment [facility] [place] [address] [place] [address] Sebastian Charles MD [address] [place] [address] Social History Tobacco Use Types [...] Name: David Castro : 1940 Chart #: [id number] Sex: M This patient was personally seen for a complete visit as part of routine monthly dialysis care. A review of the dialysis treatment, blood pressure, estimated dry weight, and recent lab values was made. These were discussed with the patient and staff as necessary. RAILROADER: Sebastian Charles MD LOCATION: [place] [phone] SCHEDULE: No Routine Schedule Subjective Tolerating dialysis [...] - looks excellent with no erythema per sheep shearermalt specifications control assistant List Medication Sig Start Date allopurinol 100 [...] by mouth twice a day RenaPlex-D (vit b,c-kn-cbhz-selen-vit d3-e) 800 mcg-12.5 mg-2,000 unit tablet Take [...] expressed interest in doing this (trip to [place] to visit family) Peritoneal Dialysis Access Assessment [...] on filedocumented in this encounter Care Teams Suction Operator Relationship Specialty Start Date End Date Harish Silver MD [address] [place] [address] PCP - General 05/17/19 documented as of this encounter
--- OUTSIDE RECORDS SUMMARY | 2024-03-06 20:33 | XMS_ITS | Encounter Summary ---
Author Organization [facility] Address [address] [place] [address] Care Team Providers Care Supervisor Sign Shop Name Role Phone Harish Silver MD Primary Care Provider [phone] Encounter Details Date Type Department Care Team (Late st Contact Info) Description 01/01/2024 Treatment [facility] [address] [place] [address] Sebastian Charles MD [address] [place] [address] Social History Tobacco Use Types [...] Name: David Castro : 1940 Chart #: [id number] Sex: M This patient was personally seen for a complete visit as part of routine monthly dialysis care. A review of the dialysis treatment, blood pressure, estimated dry weight, and recent lab values was made. These were discussed with the patient and staff as necessary. FEED ADVISER: Sebastian Charles MD LOCATION: [place] [phone] SCHEDULE: No Routine Schedule Subjective Tolerating dialysis [...] - looks excellent with no erythema per manager sharepointteacher early childhood development List Medication Sig Start Date allopurinol 100 [...] expressed interest in doing this (trip to [place] to visit family) Peritoneal Dialysis Access Assessment [...] filedocumented in this encounter Care Teams Supervisor Sign Shop Relationship Specialty Start Date End Date Harish Silver MD [address] [place] [address] PCP - General 05/17/19 documented as of this encounter
--- OUTSIDE RECORDS SUMMARY | 2024-03-06 20:33 | XMS_ITS | Encounter Summary ---
Author Organization [facility] Address [address] [place] [address] Care Team Providers Care Hospice Patient Care Secretary Name Role Phone Elsewhere, Pcp Primary Care Provider Unavailabl e Reason for Referral * Outpatient (Routine) - Closed Specialty Diagnoses / Procedures Referred By Contac t Referred To Contact Diagnoses Atrial Fibrillation Paroxysmal (HCC) Procedures Echo Transesophageal (JASON) Sarina Miller P.A.-C., M.S. [address] [place] [address] [facility] Referral ID Status Reason Start Date Expiration Date Visits Re quested Visits Authorized [id number] Closed 06/16/2023 06/15/2024 1 1 Reason for Visit * Outpatient (Routine) - Closed Specialty Diagnoses / Procedures Referred By Contac t Referred To Contact Diagnoses Atrial Fibrillation Paroxysmal (HCC) Procedures Echo Transesophageal (JASON) Sarina Miller P.A.-C., M.S. [address] [place] [phone] [facility] Referral ID Status Reason Start Date Expiration Date Visits Re quested Visits Authorized [id number] Closed 06/16/2023 06/15/2024 1 1 Encounter Details Date Type Department Care Team (Latest Contact Info) Description 11/27/2023 10:01 AM CDT - 11/27/2023 11:59 PM CDT Hospital Encounter Department of Cardiovascular Diseases in [place], [place] [address] [place] [address] Sarina Miller P.A.-C., M.S. [address] [place] [address] Atrial Fibrillation Paroxysmal (HCC) Discharge Disposition: Home [...] often do you attend chur ch or jain services? More than 4 times per year 04/11/2022 Do you belong to any clubs o r organizations such as hindu groups, unions, fraternal or [...] and heating? Not hard at all 05/13/2023 [facility] - Occupational Stress Questionnaire Answer [...] living? No 05/13/2023 Nutrition Answer Date Recorded On average, how [...] your living situation today? I have a [facility] place to live 05/13/2023 Education [...] a day before breakfast and dinner. 06/04/2022 torsemide (DEMADEX) 20 mg tablet Take 1 [...] (11/27/2023 11:15 AM CDT) Ejection Fraction 60 [facility] Anatomical Region Laterality Modality Echocardiography 11/27/2023 [...] and the findings as documented in the restrictive preparation operator and also performed a pertinent examination including [...] service representative. Adult probe inserted without difficulty. LEFT [...] Agitated saline injection(s) performed during sedation. No ymgyi-pz-nraj shunt at atrial level at rest or [...] Sedation Narrator or other pertinent record in [facility] for additional procedure and sedation information. [...] valve ??with mild aortic valve regurgitation and clzgeenv-la-dmmwmm aortic stenosis by visual estimate on 2D imaging (recommend transthoracic echocardiogram for further evaluation as clinically indicated). 5. Moderate tricuspid valve regurgitation. There is tricuspid prolapse. 6. Due to patient's achalasia, the descending aorta was not able to be well visualized on today's examination. 7. 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 8. Agitated saline injection(s) performed during sedation ??no apparent pkjqs-nu-jlqq shunting at the atrial level at rest [...] aortic valve with mild aortic valve regurgitation tdwjrsslwzl-za-agmuob aortic stenosis by visual estimate on 2D imaging(recommend transthoracic echocardiogram for further evaluation asclinically indicated). 5. Moderate tricuspid valve regurgitation. There is tricuspid prolapse. 6. Due to patient's achalasia, the descending aorta was not able to bewell visualized on today's examination. 7. 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 8. Agitated saline injection(s) performed during sedation no gxlqyylfssqkk-ha-cqga shunting at the atrial level at rest [...] and the findings as documented in the restrictive preparation operator and alsoperformed a pertinent examination including a heart, airway and lungassessment. Mallampati Assessment: As documented in the RN pre-procedureassessment. Sedation plan: Transesophageal echo - moderate sedation. ASAphysical status score: Class III. The patient's identity and all neededequipment were confirmed and a final confirmatory pause was performed bythe team immediately prior to start. PROCEDURAL ECHO FINDINGS:Transesophageal echocardiogram performed at the request of the primaryservice human resources consultant. Adult probe inserted without difficulty. LEFT [...] cava. Agitated saline injection(s) performed during sedation. Dcuobtu-wh-rdbx shunt at atrial level at rest or [...] See Sedation Narrator or other pertinentrecord in [employer] for additional procedure and sedation information.Physician signature [...] 10 mL 10 mL, intravenous, Once, On Mon11/27/23 at 1030, For 1 dose, Intraprocedure - Diagnostic, Prior to and following infusion and between multiple consecutive infusions: sodium chloride 0.9 % injection Given 11/27/2023 10:31 AM CDT 10 mL documented in this encounter Care Teams Hospice Patient Care Secretary Relationship Specialty Start Date End Date Elsewhere, Pcp PCP - General Internal Medicine 11/24/23 documented as of this encounter
--- OUTSIDE RECORDS SUMMARY | 2024-03-06 20:33 | XMS_ITS | Encounter Summary ---
Author Organization [facility] Address [address] [place] [address] Care Team Providers Care Enamel Shader Name Role Phone Harish Silver MD Primary Care Provider [phone] Encounter Details Date Type Department Care Team (Late st Contact Info) Description 01/31/2024 Orders Only [facility] [place] [address] [place] [address] Sebastian Charles MD [address] [place] [address] Social History Tobacco Use Types [...] 01/31/2024 02/01/2024 12: 44 PM CDT Narrative [facility] - 02/01/2024 Unless otherwise specified, test(s) performed at: [facility], [address] [place] [address], [place] [address] CONTENT DESIGNER: Dariel Doyle M.D., Ph.D For any questions, [...] 02/01/2024 Unless otherwise specified, test(s) performed at: [facility], [address] [place] [address], [place] [address] CONTENT DESIGNER: Dariel Doyle M.D., Ph.D For any questions, please call customer service at FREQUENCY:MONTHLY Resulting Agency Comment Specimen source: Blood Sebastian Charles MD LAB BLOOD ORDERABLES [facility] See order comments or contact performing lab Unknown, [place] documented in this encounter Visit Diagnoses Not on filedocumented in this encounter Care Teams Enamel Shader Relationship Specialty Start Date End Date Harish Silver MD [address] [place] [address] PCP - General 05/17/19 documented as of this encounter
--- OUTSIDE RECORDS SUMMARY | 2024-03-06 20:33 | XMS_ITS | Encounter Summary ---
Author Organization [facility] Address [address] [place] [address] Care Team Providers Care Accountant Assistant Name Role Phone Elsewhere, Pcp Primary Care Provider Unavailabl e Reason for Referral * Outpatient (Routine) - Authorized Specialty Diagnoses / Procedures Referred By Contac t Referred To Contact Diagnoses Stenosis Aortic Valve Acquired Procedures Echo Transthoracic (TTE) Sarina Miller P.A.-C., M.S. [address] [place] [address] [facility] Referral ID Status Reason Start Date Expiration Date V isits Requested Visits Authorized [id number] Authorized 11/28/2023 11/27/2024 1 1 * Outpatient (Routine) - Authorized Specialty Diagnoses / Procedures Referred By Contac t Referred To Contact Diagnoses Stenosis Aortic Valve Acquired Procedures DX Chest AP or PA and Lateral 2 Views Sarina Miller P.A.-C., M.S. [address] [place] [address] [facility] Referral ID Status Reason Start Date Expiration Date V isits Requested Visits Authorized [id number] Authorized 11/28/2023 11/27/2024 1 1 * Outpatient (Routine) - Authorized Specialty Diagnoses / Procedures Referred By Contac t Referred To Contact Diagnoses Stenosis Aortic Valve Acquired Procedures ECG 12 Lead Sarina Miller P.A.-C., M.S. [address] [place] [phone] [facility] Referral ID Status Reason Start Date Expiration Date V isits Requested Visits Authorized [id number] Authorized 11/28/2023 11/27/2024 1 1 * Outpatient (Routine) - Authorized Specialty Diagnoses / Procedures Referred By Contac t Referred To Contact Cardiovascular Disease Sarina Miller P.A.-C., M.S. [address] [place] [phone] [facility] Referral ID Status Reason Start Date Expiration Date V isits Requested Visits Authorized [id number] Authorized 11/28/2023 05/29/2025 1 1 * Outpatient (Routine) - Authorized Specialty Diagnoses / Procedures Referred By Contac t Referred To Contact Cardiovascular Disease Sarina Miller P.A.-C., M.S. [address] [place] [phone] [facility] TODD [address] Referral ID Status Reason Start Date Expiration Date V isits Requested Visits Authorized [id number] Authorized 11/28/2023 05/29/2025 1 1 * Outpatient (Routine) - Authorized Specialty Diagnoses / Procedures Referred By Contac t Referred To Contact Diagnoses Atrial Fibrillation Paroxysmal (HCC) Procedures Echo Transesophageal (JASON) Sarina Miller P.A.-C., M.S. [address] [place] [phone] [facility] Referral ID Status Reason Start Date Expiration Date V isits Requested Visits Authorized [id number] Authorized 11/28/2023 11/27/2024 1 1 Reason for Visit * Outpatient (Routine) - Closed Specialty Diagnoses / Procedures Referred By Albino t Referred To Contact Cardiovascular Disease Diagnoses Atrial Fibrillation Paroxysmal (HCC) Sarina Miller P.A.-C., M.S. [address] [place] [phone] [facility] Referral ID Status Reason Start Date Expiration Date Visits Re quested Visits Authorized [id number] Closed 06/16/2023 06/15/2026 1 1 Encounter Details Date Type Department Care Team (Latest Contact Info) Description 11/28/2023 1:00 PM CDT Telemedicine Department of Cardiovascular Medicine in [place], [place] [address] [place] [phone] Sarina Miller P.A.-C., M.S. [address] [place] [phone] Stenosis Aortic Valve Acquired (Primary Dx); Atrial [...] How often do you attend chur or adventism services? More than 4 times per year 04/11/2022 Do you belong to any clubs o r organizations such as jewish groups, unions, fraternal or [...] and heating? Not hard at all 05/13/2023 [facility] - Occupational Stress Questionnaire Answer Date [...] your living situation today? I have a [facility] place to live 05/13/2023 Education Answer [...] the setting of atrial fibrillation with elevated [id number] VASc of 4 with a relative contraindication [...] valve with mild aortic valve regurgitation and qtzvvqvz-ys-wbhsrk aortic stenosis by visual estimate on 2D imaging (recommend transthoracic echocardiogram for further evaluation as clinically indicated). 5. Moderate tricuspid valve regurgitation. There is tricuspid prolapse. 6. Due to patient's achalasia, the descending aorta was not able to be well visualized on today's examination. 7. 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 8. Agitated saline injection(s) performed during sedation no apparent ewqzf-ag-hgvs shunting at theatrial level at rest or [...] (HCC) documented in this encounter Care Teams Accountant Assistant Relationship Specialty Start Date End Date Elsewhere, Pcp PCP - General Internal Medicine 11/24/23 documented as of this encounter
--- OUTSIDE RECORDS SUMMARY | 2024-03-06 20:33 | XMS_ITS | Encounter Summary ---
Author Organization [facility] Address [address] [place] [address] Care Team Providers Care Assistant Warehouse Manager Name Role Phone Harish Silver MD Primary Care Provider [phone] Encounter Details Date Type Department Care Team (Late st Contact Info) Description 02/14/2024 Orders Only [facility] [place] [address] [place] [address] Sebastian Charles MD [address] [place] [address] Social History Tobacco Use Types [...] 02/14/2024 02/15/2024 9:5 3 AM CDT Narrative [facility] - 02/15/2024 Unless otherwise specified, test(s) performed at: [facility], [address] [place] [address], [place] [address] OUTDOOR STUDIES DIRECTOR: Dariel Doyle M.D., Ph.D For any questions, please call customer service at FREQUENCY:OTHER Resulting Agency Comment Specimen source: Urine Sebastian Charles MD LAB BODY FLUIDS AND STOOLS ORDERABLES Performing Organization Address City/[facility] Co de Phone Number [facility] See order comments or contact performing lab Unknown, [place] * PD ADEQUACY (02/14/2024) Pathologist [facility] Kt/V, Total 3.09 [facility] Comment: KDOQI Guidelines recommend weekly Kt/V of >=1.7 for adults. Kt/V, Peritoneal 0.67 [facility] PNA, Normalized 1.15 g/kg/day [facility] PNA 86 g/day [facility] 02/14/2024 02/15/2024 9:3 6 AM CDT Narrative Resulting Agency Comment Specimen source: PD Fluid Sebastian Charles MD LAB BODY FLUIDS AND STOOLS ORDERABLES Performing Organization Address City/[facility] Co de Phone Number [facility] See order comments or contact performing lab Unknown, [place] * PATIENT INFORMATION (02/14/2024) Urea Volume Distribution ([place]) 43.3 L [facility] 02/14/2024 02/15/2024 9:3 6 AM CDT Narrative [facility] - 02/15/2024 Unless otherwise specified, test(s) performed at: [facility], [address] [place] [address], [place] [address] OUTDOOR STUDIES DIRECTOR: Dariel Doyle M.D., Ph.D For any questions, please call customer service at FREQUENCY:OTHER Resulting Agency Comment Specimen source: PD Fluid Sebastian Charles MD LAB BLOOD ORDERABLES Performing Organization Address [facility] Co de Phone Number [facility] See order comments or contact performing lab Unknown, [place] * PATIENT INFORMATION (02/14/2024) Patient BSA 1.93 sq. M. [facility] Comment: Normalized values are calculated using the patient's actual BSA and normalized to the average BSA of 1.73m2. 02/14/2024 02/15/2024 7:1 3 AM CDT Narrative [facility] - 02/15/2024 Unless otherwise specified, test(s) performed at: [facility], [address] [place] [address], [place] [address] OUTDOOR STUDIES DIRECTOR: Dariel Doyle M.D., Ph.D For any questions, please call customer service at FREQUENCY:OTHER Resulting Agency Comment Specimen source: PD Fluid Sebastian Charles MD LAB BLOOD ORDERABLES Performing Organization Address [facility] de Phone Number [facility] See order comments or contact performing lab Unknown, [place] * PATIENT INFORMATION (02/14/2024) Patient Weight 81.0 [facility] Patient Height 171.0 [facility] Drain volume, PDF 5,408 [facility] Collection Time, PDF 24.0 [facility] Urine Volume 1,400 [facility] Collection Interval, Ur 24.0 [facility] 02/14/2024 02/14/2024 Narrative [facility] - 02/15/2024 Unless otherwise specified, test(s) performed at: [facility], [address] [place] [address], [place] [address] OUTDOOR STUDIES DIRECTOR: Dariel Doyle M.D., Ph.D For any questions, please call customer service at FREQUENCY:OTHER Resulting Agency Comment Specimen source: PD Fluid Sebastian Charles MD LAB BLOOD ORDERABLES Performing Organization Address [facility] de Phone Number [facility] See order comments or contact performing [...] MD LAB URINE ORDERABLES Performing Organization Address [facility] de Phone Number [facility] See order comments or contact [...] FLUIDS AND STOOLS ORDERABLES Performing Organization Address [facility] Co de Phone Number [facility] See order comments or contact performing lab Unknown, [place] * (ABNORMAL) [facility] (02/14/2024) BUN 49(H) 6 - 19 mg/dL [facility] 02/14/2024 02/15/2024 7:1 3 AM CDT Narrative [facility] - 02/15/2024 Unless otherwise specified, test(s) performed at: [facility], [address] [place] [address], [place] [address] OUTDOOR STUDIES DIRECTOR: Dariel Doyle M.D., Ph.D For any questions, please call customer service at FREQUENCY:MONTHLY Resulting Agency Comment Specimen source: Serum Sebastian Charles MD LAB BLOOD ORDERABLES [facility] See order comments or contact performing lab Unknown, [place] documented in this encounter Visit Diagnoses Not on filedocumented in this encounter Care Teams Assistant Warehouse Manager Relationship Specialty Start Date End Date Harish Silver MD [address] [place] [address] PCP - General 05/17/19 documented as of this encounter
== END 2024-03-01 20:33 | disposition home or self-care (01) ==
LOC: AMB 03-06 20:29
PROVIDERS: PCP Family Medicine; Visit Provider Family Medicine
DX: I63.81 Other cerebral infarction due to occlusion or stenosis of small artery (principal); N19 Unspecified kidney failure
CPT/HCPCS: A0425; A0427

== ENCOUNTER 2024-07-26 13:00 | Outpatient (RCR) | payer MEDICARE, OTHER, SELFPAY | END 2024-09-02 10:48 | disposition home or self-care (01) | PROVIDERS: PCP Family Medicine; Visit Provider Family Medicine | DX: I69.398 Other sequelae of cerebral infarction (principal); R26.89 Other abnormalities of gait and mobility; Z51.89 Encounter for other specified aftercare | CPT/HCPCS: 97110; 97112; 97161 ==

== ENCOUNTER 2025-02-12 12:45 | Outpatient (RCR) | payer MEDICARE, OTHER, SELFPAY | END 2025-05-02 17:15 | disposition home or self-care (01) | PROVIDERS: PCP Family Medicine; Visit Provider Family Medicine | DX: R29.818 Other symptoms and signs involving the nervous system (principal); M54.16 Radiculopathy, lumbar region; M25.562 Pain in left knee; M25.561 Pain in right knee; Z51.89 Encounter for other specified aftercare | CPT/HCPCS: 97110; 97161 ==